=== PATIENT | female | born 1960 | race Caucasian/White ===

== ENCOUNTER 2019-12-24 11:04 | Inpatient (IN) | payer BC, SELFPAY ==
--- NOTE | ~2019-12-24 | CT_ITS ---
EXAMINATION: CT abdomen pelvis w con DATE: 12/24/2019 13:13 INDICATION: Fever, diarrhea and back pain TECHNIQUE: Computed tomography (CT) of the abdomen and pelvis was performed with 100 cc Omnipaque 350 intravenous contrast. Automated exposure control and iterative reconstruction technique were employe d. Exam dose: 1519.94 mGy-cm total exam DLP. COMPARISON: 02/25/2008 CT abdomen 04/09/2014 limited abdominal ultrasound examination FINDINGS: This changes are noted in the included lower lung zones. No pulmonary infiltrate or consoli dation or pulmonary mass lesion is identified. Heart size is normal. No pericardial or pleural effusion. There is an approximately 4.2 cm cystic lesion at the dome of the liver and approximately 7 mm hypoat tenuating lesion is also noted near the dome. There is hepatic surface nodularity consistent with cirrhosis. There is splenomegaly. The splenic vei n is dilated and tortuous. The gallbladder is present. No bile duct or pancreatic duct dilatation is evident. No pancreatic mass lesion or calcification is noted. Normal morphology of the adrenal glands. No renal mass lesion or urinary tract calculus or hydroureteronephrosis is evident. The urinary bladd er, uterus and adnexal areas are unremarkable. There is normal caliber and mild atherosclerotic calcification of the abdominal aorta. No intraperito hussein or retroperitoneal mass lesion is evident. No ascites. No evidence of appendicitis. There is thickening of the wall of the cecum, ascending, transverse and descending colon and pericoli c fat stranding surrounding much of the colon, suggesting nonspecific colitis. No bowel obstruction o r intraperitoneal free air. Small fat-containing umbilical hernia. Included skeletal structures are unremarkable. IMPRESSION: Nonspecific colitis, involving particularly the descending, transverse, ascending colon and cecum Hepatic cysts Cirrhosis, splenomegaly. Reviewed, dictated and finalized at [facility] Reviewed, dictated and finalized at [facility] IMPRESSION: Nonspecific colitis, involving particularly the descending, transv erse, ascending colon and cecum Hepatic cysts Cirrhosis, splenomegaly.
[2019-12-24 11:30] VITALS: BP 107/88; RESP 18; TEMP 37.7; O2SAT 95
--- NOTE | 2019-12-24 11:36 | ECG_ITS ---
Measurements Intervals [place] Rate: 83 P: 53 ME: 128 QRS: 42 QRSD: 96 T: 37 QT: 385 QTc: 454 Interpretive Statements SINUS RHYTHM DELAYED PRECORDIAL R/S TRANSITION BORDERLINE ST ABNORMALITY- INFERIOR LEADS BORDERLINE ECG Electronically Signed On 12-24-2019 13:02:51 CDT by Darrel Archer D.O.
[2019-12-24 11:55] LABS: Add Urine Microscopic? NO; Appearance Urine Clear (Clear); Bilirubin Urine Negative (Negative); Blood Urine Negative (Negative); Color Urine Yellow (Yellow); Glucose Urine UA Negative (Negative); Ketones Urine Negative (Negative); Leukocyte Esterase Ur Negative LEU/UL (Negative); Nitrate Urine Negative (Negative); Protein Urine Negative (Negative); Specific Grav Ur 1.015 (1.010-1.020); Urobilinogen Urine 0.2 mg/dL (0.2-1.0); pH Urine 5.5 (5.0-8.0)
[2019-12-24] MEDS: SODIUM CHLORIDE 0.9% IV 1,000 ML 999 ML IV CONT (12:00)
[2019-12-24 12:04] LABS: Glucose Point of Care 200 (65-105)
[2019-12-24 12:15] LABS: Basophils Absolute Auto 0.01 K/mm3 (0.00-0.10); Basophils Percent Auto 0.1 % (0.0-1.0); Eosinophils Absolute Auto 0.19 K/mm3 (0.02-0.50); Eosinophils Percent Auto 2.8 % (1.0-6.0); Hematocrit 40.1 % (35.0-49.0); Hemoglobin 13.8 g/dL (12.0-15.0); Immature Granulocyte Absolute 0.02 K/mm3 (0.00-0.00); Immature Granulocyte Percent A 0.3 % (0.0-0.0); Immature Platelet Fraction Pct 4.2 % (1.0-7.0); Lymphocytes Absolute Auto 0.61 K/mm3 (1.10-4.50); Lymphocytes Percent Auto 8.9 % (18.0-42.0); Mean Corpuscular HGB Conc 34.4 g/dL (32.0-36.0); Mean Corpuscular Hemoglobin 30.1 pg (27.0-31.0); Mean Corpuscular Volume 87.6 fL (78.0-102.0); Mean Platelet Volume 12.1 fl (9.2-11.8); Monocytes Absolute Auto 0.56 K/mm3 (0.10-0.90); Monocytes Percent Auto 8.1 % (2.0-11.0); Neutrophils Absolute Auto 5.5 K/mm3 (1.7-7.2); Neutrophils Percent Auto 79.8 % (50.0-70.0); Platelet Count Result 40 K/mm3 (150-420); Red Blood Count 4.58 M/mm3 (4.20-5.40); Red Cell Distribution Width 14.8 % (11.6-14.4); White Blood Count 6.9 K/mm3 (4.8-10.8)
[2019-12-24 12:21] LABS: INR 1.4; Partial Thromboplastin Time 29.7 SEC (22.3-31.6); Prothrombin Time 13.9 Seconds (9.64-11.0)
[2019-12-24 12:46] LABS: Alanine Aminotransferase 26 U/L (14-59); Albumin Level 2.6 g/dL (3.4-5.0); Alkaline Phosphatase 76 U/L (46-116); Anion Gap 12.4 mmol/L (7-16); Aspartate Amino Transferase 29 U/L (15-37); Bilirubin,Total 2.3 mg/dL (0.00-1.00); Blood Urea Nitrogen 8 mg/dL (7-18); Calcium 7.8 mg/dL (8.5-10.1); Carbon Dioxide 26 mmol/L (21-32); Chloride 100 mmol/L (98-108); Estimated CRCL calculation 80 ml/min; Estimated Glomerular Filt Rate > 60; Glucose 199 mg/dL (70-99); Lipase 107 U/L (73-393); Osmolality Calculated 284 mOsm/kg (285-295); Potassium 3.4 mmol/L (3.5-5.1); Sodium 135 mmol/L (136-145); Total Protein 5.8 g/dL (6.4-8.2)
[2019-12-24 12:47] LABS: Lactic Acid Reflex 2.5 mmol/L (0.4-2.0)
[2019-12-24 12:48] LABS: Troponin I < 0.02 ng/mL (0.00-0.056)
--- NOTE | 2019-12-24 12:57 | ED.NAVMDI ---
HPI - Nausea/Vomiting/Diarrhea General Chief complaint: Nausea/Vomiting/Diarrhea Stated complaint: Fever,diarrhea,back pain Source: patient Mode of arrival: ambulatory Limitations: no limitations History of Present Illness HPI Narrative: this is a 59-year-old female with a history of diabetes, history of portal vein thrombosis and hypertension with liver cirrhosis and history of thrombocytopenia secondary to liver cirrhosis. Patient presents with crampy abdominal pain and watery diarrhea over the last couple of days, call her primary care physician because she had a temperature of 101? yesterday and currently having crampy abdominal pain with some nausea no vomiting and watery diarrhea. Patient had a recent episode of sinusitis and was some on antibiotics which she finished that course. Currently there is no fever, others no shortness of breath no cough. MD elicited complaint: nausea, diarrhea and abdominal pain Onset (ago): day(s) Description of vomiting: watery Description of diarrhea: watery Associated nausea: Yes Associated abdominal pain: Yes Location of pain: diffuse Pain consistency: intermittent Severity: moderate Quality: cramping Relieving factors: none Associated symptoms: fever/chills and nausea/vomiting Related Data Home Medications Medication Instructions Recorded Confirmed apixaban [Eliquis] 2.5 mg PO BID 12/24/19 12/24/19 furosemide 20 mg PO DAILY 12/24/19 12/24/19 glimepiride 2 mg PO DAILY 12/24/19 12/24/19 insulin glargine U-300 conc 50 unit SUBCUT DAILY 12/24/19 12/24/19 [Toujeo Max U-300 SoloStar] liraglutide [Victoza 3-Lai] 1.8 mg SUBCUT DAILY 12/24/19 12/24/19 metformin 1,000 mg PO BID 12/24/19 12/24/19 potassium chloride 10 meq PO DAILY 12/24/19 12/24/19 triamterene-hydrochlorothiazid 1 tablet PO DAILY 12/24/19 12/24/19 Allergies Allergy/AdvReac Type Severity Reaction Status Date / Time Sulfa (Sulfonamide Allergy Mild ITCHING Verified 10/03/12 07:20 Antibiotics) sulfanilamide Allergy Unknown Verified 10/02/12 08:40 Review of Systems Review of Systems: All systems reviewed & are unremarkable except as noted in HPI and below PMFSH Past Medical History Medical History Diabetes mellitus HTN (hypertension) Portal vein thrombosis Thrombocytopenia Family History Family History Mother Family history of malignant neoplasm of breast in first degree relative Father Family history of malignant neoplasm of esophagus Social History Social History Smoking status: Never smoker Alcohol intake: never Exam Const: General: no acute distress HENMT: Head: normal to inspection Eyes: Pupils: Equal, round and reactive pupils present Neck: Neck: normal visual inspection Chest: Chest palpation & inspection: normal inspection of the chest Resp: Effort & Inspection: normal respiratory effort Cardio: Rate: regular rate Rhythm: regular rhythm GI: GI Palp: Yes Tenderness to palpation present (GI) Percussion: Yes normal to percussion : General: Yes no CVA tenderness Urinary Catheter: Urinary Catheter: patent and draining Skin: General skin exam: normal color Rashes: no rashes Neuro: General: patient oriented x3, moves all extremities, no meningeal signs and no focal motor deficits Extrem: General: normal to inspection Psych: Mental Status: mental status grossly normal Course Vital Signs Vital signs: Vital Signs Temperature 37.7 C H 12/24/19 11:30 Respiratory Rate 18 12/24/19 11:30 Blood Pressure 107/88 12/24/19 11:30 Pulse Oximetry 95 12/24/19 11:30 Temperature 37.7 C H 12/24/19 11:30 Respiratory Rate 18 12/24/19 11:30 Blood Pressure 107/88 12/24/19 11:30 Pulse Oximetry 95 12/24/19 11:30 MDM - Nausea/Vomiting/Diarrhea Lab Data Attestation: I reviewed the patient's l
[2019-12-24 14:15] VITALS: BP 149/66; PULSE 83; RESP 18; O2SAT 97
[2019-12-24 15:07] LABS: Reflex Lactic Acid Yes or No Add Lactic
[2019-12-24 15:20] VITALS: BMI 45.2
--- NOTE | 2019-12-24 15:35 | PM.IMHP ---
H&P: HPI History of Present Illness Chief complaint: Fever,diarrhea,back pain Narrative: Aleah Levine is a 59 year old female admitted today with mild lower abdominal pain, mild lower back pain, nausea, vomiting, and diarrhea, as well as fevers around 100-102 since Saturday. Aleah has a history of diabetes, history of portal vein thrombosis and hypertension with liver cirrhosis and history of thrombocytopenia secondary to liver cirrhosis. She has had crampy abdominal pain and watery diarrhea over the last couple of days. She describes herself as having at least 5 bowel movements a day. Aleah stated that her bowel movement was at times watery, at times mucousy and at other times dark and bloody in appearance. Stated that every time she got up she had to have a bowel movement. She called her primary care physician because she had a temperature of 101? yesterday and currently having crampy abdominal pain with some nausea no vomiting and watery diarrhea. Aleah's recent history includes having a colonoscopy at [facility] in October involving GoLYTELY prep, and stated that she started having frequent bowel movements after that. Then in November, she came down with a sinus infection, that she seems to get every year. She has a history of having previous and multiple sinus opening surgeries. She did start on a course of antibiotics in November for her sinus infection at PCP Dr. Romano's office, but cannot remember what the antibiotics was. She thought that it was a 10 day course. At her ED admission today, there was no fever noted, no chest pain, no shortness of breath, no cough. She stated that she has not had any COVID exposure that she is aware of. She stated that her last outing was her colonoscopy in mid- October at [facility], and that she has been home bound since then. When I examined Aleah myself today I was able to witness quite a large sample stool of hers , that she left in the hat in the bathroom. The stool was quite malodorous, appeared black and tarry, quite thick and mucousy. Her white count at admission today was 6.9, her glucose level was 200 , her lactic acid level was 2.5. Checking her LDH, EKG, multiple stool samples and cultures ordered including C diff toxin. She was admitted with colitis and possible Clostridium difficile infection. Review of Systems Review of Systems: All systems reviewed & are unremarkable except as noted in HPI and below Constitutional: Constitutional: Reports as per HPI, Reports body ache(s), Denies chills, Denies difficulty sleeping, Reports fatigue, Reports lethargy, Denies night sweats and Reports weakness Eyes: Eyes: Reports as per HPI, Denies blurry vision and Denies photophobia ENT: Reports as per HPI, Reports Normal hearing present, Denies dysphagia, Denies epistaxis, Reports nasal congestion, Reports nasal discharge and Denies tinnitus Cardiovascular: Cardiovascular: Reports as per HPI, Denies chest pain, Denies diaphoresis, Reports pedal edema, Reports leg edema, Denies lightheadedness and Denies palpitations Respiratory: Respiratory: Reports as per HPI, Denies no additional respiratory complaints, Denies chest congestion, Denies cough, Denies hemoptysis, Denies dyspnea, Denies dyspnea on exertion and Denies wheezing Gastrointestinal: Gastrointestinal: Reports as per HPI, Reports abdominal pain, Reports melena, Reports bloating, Denies hematochezia, Denies constipation, Denies heartburn, Reports diarrhea, Reports nausea, Reports vomiting and Denies hematemesis Genitourinary: Genitourinary: Reports as per HPI, Denies hematuria, Denies urinary frequency, Denies nocturia, Denies dysuria, Denies flank pain, Denies urinary incontinence, Denies urinary hesitancy and Denies urinary urgency Musculoskeletal: Musculoskeletal: Reports as per HPI, Reports back pain and Reports stiffness Integumentary/Breasts: Skin/Breast: Reports system reviewed and no additional complaints, except as docu Neurologic: Reports as per HPI, Denies A
[2019-12-24 15:41] LABS: Lactic Acid 2.2 mmol/L (0.4-2.0)
[2019-12-24 15:54] VITALS: BP 141/53; PULSE 83; RESP 20; TEMP 37; O2SAT 96
[2019-12-24] MEDS: SODIUM CHLORIDE 0.9% IV 1,000 ML 100 ML IV CONT (17:20)
[2019-12-24] MEDS: metroNIDAZOLE 500 MG/ISO 100ML 500 MG/100 ML BAG 100 MG IVPB ×2 (17:20→22:20)
[2019-12-24] MEDS: metFORMIN HCL 500 MG TABLET 1000 MG PO (17:20)
[2019-12-24 17:32] LABS: Glucose Point of Care 192 (65-105)
--- NOTE | 2019-12-24 18:52 | ADMGEN ---
This patient, Aleah Levine, was admitted to 2nd Floor Room 202-2. Patient/family oriented to hospital policies and general routines including ID bracelet, bed and alarms, visiting hours, pain management, procedures, bathroom and other care routines, personal items, smoking policy, room service/diet, and visiting hours. Valuables list has been completed. Information on how to activate the Rapid Response Team has been discussed. Patient/Family are encouraged to report perceived risks to care and to ask questions if they do not understand what they are told or what they should do.
--- NOTE | 2019-12-24 18:53 | PC.NURSE ---
stool sample collected, pt resting in bed, declines scds at this time, pt has no complaint of pain, iv fluids running,
[2019-12-24] MEDS: POTASSIUM CHLORIDE 20 MEQ TABLET 40 MEQ PO (19:04)
[2019-12-24] MEDS: VANCOMYCIN HCL 250 MG CAPSULE 500 MG PO ×2 (19:05→20:15)
[2019-12-24] MEDS: SACCHAROMYCES BOULARDII 250 MG CAPSULE PO (19:06)
[2019-12-24 19:08] LABS: Magnesium 1.5 mg/dL (1.8-2.4); Phosphorus 3.6 mg/dL (2.6-4.7)
[2019-12-24] MEDS: ACETAMINOPHEN 325 MG TABLET 650 MG PO (19:08)
--- NOTE | 2019-12-24 19:54 | PC.NURSE ---
pt takes po meds without difficulty, iv running, aox4, no trouble walking around room with iv pole, pt is in bed on phone currently
[2019-12-24 20:00] VITALS: BP 166/58; PULSE 97; RESP 18; TEMP 37.9; O2SAT 97
[2019-12-24] MEDS: MAGNESIUM SULF 4 GM/WATER100ML 4 GM/100 ML BAG IVPB (20:14)
[2019-12-24] MEDS: APIXABAN 2.5 MG TABLET PO (20:15)
[2019-12-24 21:46] LABS: Occult Blood Positive (Negative)
--- NOTE | 2019-12-24 22:35 | PC.NURSE ---
pt informed she is being placed on contact iso for c diff, given fresh ice water, fluids running
[2019-12-24 22:40] VITALS: RESP 18
[2019-12-25] VITALS: BP 154/65; PULSE 93; RESP 20; TEMP 36.8; O2SAT 98
[2019-12-25 04:00] VITALS: BP 142/63; PULSE 90; RESP 18; TEMP 36.9; O2SAT 97
[2019-12-25] MEDS: SODIUM CHLORIDE 0.9% IV 1,000 ML 100 ML IV CONT ×2 (05:39→13:18)
[2019-12-25 05:56] LABS: Basophils Absolute Auto 0.01 K/mm3 (0.00-0.10); Basophils Percent Auto 0.2 % (0.0-1.0); Eosinophils Percent Auto 4.2 % (1.0-6.0); Hematocrit 37.5 % (35.0-49.0); Hemoglobin 12.4 g/dL (12.0-15.0); Immature Granulocyte Absolute 0.02 K/mm3 (0.00-0.00); Immature Granulocyte Percent A 0.4 % (0.0-0.0); Immature Platelet Fraction Pct 5.1 % (1.0-7.0); Lymphocytes Absolute Auto 0.47 K/mm3 (1.10-4.50); Mean Corpuscular HGB Conc 33.1 g/dL (32.0-36.0); Mean Corpuscular Hemoglobin 29.2 pg (27.0-31.0); Mean Corpuscular Volume 88.2 fL (78.0-102.0); Mean Platelet Volume 12.4 fl (9.2-11.8); Monocytes Absolute Auto 0.36 K/mm3 (0.10-0.90); Monocytes Percent Auto 7.6 % (2.0-11.0); Neutrophils Absolute Auto 3.7 K/mm3 (1.7-7.2); Neutrophils Percent Auto 77.6 % (50.0-70.0); Platelet Count Result 36 K/mm3 (150-420); Red Blood Count 4.25 M/mm3 (4.20-5.40); Red Cell Distribution Width 14.7 % (11.6-14.4); White Blood Count 4.7 K/mm3 (4.8-10.8)
[2019-12-25] MEDS: metroNIDAZOLE 500 MG/ISO 100ML 500 MG/100 ML BAG 100 MG IVPB ×2 (06:03→15:06)
[2019-12-25 06:13] LABS: Lactic Acid Reflex 1.8 mmol/L (0.4-2.0)
[2019-12-25 06:20] LABS: Alanine Aminotransferase 23 U/L (14-59); Albumin Level 2.2 g/dL (3.4-5.0); Alkaline Phosphatase 69 U/L (46-116); Anion Gap 10.8 mmol/L (7-16); Aspartate Amino Transferase 29 U/L (15-37); Bilirubin,Total 1.9 mg/dL (0.00-1.00); Blood Urea Nitrogen 7 mg/dL (7-18); Calcium 7.3 mg/dL (8.5-10.1); Carbon Dioxide 27 mmol/L (21-32); Chloride 102 mmol/L (98-108); Estimated CRCL calculation 100 ml/min; Estimated Glomerular Filt Rate > 60; Glucose 158 mg/dL (70-99); Magnesium 1.8 mg/dL (1.8-2.4); Osmolality Calculated 283 mOsm/kg (285-295); Potassium 3.8 mmol/L (3.5-5.1); Sodium 136 mmol/L (136-145); Total Protein 5.2 g/dL (6.4-8.2)
--- NOTE | 2019-12-25 07:44 | PC.NURSE ---
Complaints of dry mouth, abdominal cramping associated with bowel movements, no nausea, no vomiting, fluids infusing, independent in room, contact isolation observed,
[2019-12-25 07:46] VITALS: PULSE 88; RESP 18; O2SAT 95
[2019-12-25 07:47] VITALS: BP 144/60; PULSE 88; RESP 18; TEMP 37.2; O2SAT 95
[2019-12-25] MEDS: SACCHAROMYCES BOULARDII 250 MG CAPSULE PO ×3 (08:50→17:14)
[2019-12-25] MEDS: VANCOMYCIN HCL 250 MG CAPSULE 500 MG PO ×4 (08:50→20:33)
[2019-12-25] MEDS: APIXABAN 2.5 MG TABLET PO ×2 (08:51→20:33)
[2019-12-25] MEDS: FUROSEMIDE 20 MG TABLET PO (08:51)
[2019-12-25] MEDS: metFORMIN HCL 500 MG TABLET 1000 MG PO ×2 (08:51→17:13)
[2019-12-25] MEDS: GLIMEPIRIDE 2 MG TABLET PO (08:51)
[2019-12-25] MEDS: PANTOPRAZOLE 40 MG TABLET PO (08:51)
[2019-12-25] MEDS: TRIAMTERENE 37.5 MG/HCTZ 25 MG (MAXZIDE) TABLET 1 TAB PO (08:51)
[2019-12-25] MEDS: POTASSIUM CHLORIDE 10 MEQ TABLET PO (08:51)
[2019-12-25 11:29] LABS: Glucose Point of Care 192 (65-105)
[2019-12-25 11:57] VITALS: RESP 18
--- NOTE | 2019-12-25 11:58 | PC.NURSE ---
Eating lunch, taking oral fluids well, soreness to rectum noted from frequent stools
--- NOTE | 2019-12-25 13:28 | PC.NURSE ---
Fluids restarted at this time, does feel that her urine output is improving, stools continue
--- NOTE | 2019-12-25 14:29 | PM.IMPN ---
Progress Note: A&P Assessment and Plan (1) Colitis: Code(s): K52.9 - Noninfective gastroenteritis and colitis, unspecified <Amie Paulino NP - Last Filed: 12/25/19 15:31> Status: Acute <Amie Paulino NP - Last Filed: 12/25/19 15:31> Assessment and Plan: at 100 mL an hour IVFs continuously NS to be discontinued in the morning started on probiotics and yogurts throughout the day started on oral Vanc and IV Flagyl, but will discontinue the IV Flagyl today While continuing the oral vanc. stool sample was collected And cultures sent , C diff toxin and antigen was both found to be present, rest of stool cultures pending currently on a diabetic diet monitoring blood sugars checking electrolytes replenishing hypo kalemia and monitoring electrolytes daily <Amie Paulino NP - Last Filed: 12/25/19 15:31> (2) Clostridium difficile infection: Code(s): A49.8 - Other bacterial infections of unspecified site <Amie Paulino NP - Last Filed: 12/25/19 15:31> Status: Acute <Amie Paulino NP - Last Filed: 12/25/19 15:31> Assessment and Plan: stool was quite malodorous, appeared black and tarry, quite thick and mucousy. recent history of antibiotics for sinus infection prior to that recent history of colonoscopy using colon prep GoLYTELY hypokalemic admission and having multiple greater than 3 bowel movements a day for many days stool sample was collected And cultures sent , C diff toxin and antigen was both found to be present, rest of stool cultures pending at 100 mL an hour IVFs continuously NS to be discontinued in the morning started on probiotics and yogurts throughout the day started on oral Vanc and IV Flagyl, but will discontinue the IV Flagyl today While continuing the oral vanc. <Amie Paulino NP - Last Filed: 12/25/19 15:31> (3) Thrombocytopenia: Code(s): D69.6 - Thrombocytopenia, unspecified <Amie Paulino NP - Last Filed: 12/25/19 15:31> Status: Acute <Amie Paulino NP - Last Filed: 12/25/19 15:31> Assessment and Plan: Aleah has a platelet count of 36 down from [address] scan yesterday showed cirrhosis and splenomegaly she has had a history of thrombocytopenia for many years she has a specialist at [facility] that she follows on a routine basis she has routine EGDs completed to monitor for esophageal varices due to her vein hypertension history will continue to monitor her platelet count daily will avoid Lovenox, and also avoiding other anticoagulants at this time, using Flaquito hose and SCDs instead. <Amie Paulino, TRAILER DRIVER - Last Filed: 12/25/19 15:31> Subjective Date/time seen: 12/25/19 14:29 Magalis awake and up in her recliner chair this morning. She stated that she was very fatigued, tired and did not get much sleep last night. She stated that every time she gets a drink or gets up, she has to have a bowel movement. At times she is barely making it to the commode, definitely having too much difficulty to make it as far as the bathroom. Her abdomen is still slightly puffy and distended, with persistent lower quadrant generalized pain. She continues to have frequent bowel movements, of liquid or gravy consistency. Her C diff test came back positive for the C diff toxin and the C diff antigen. Will continue her on oral Vancomycin, but will discontinue her IV Flagyl today. it was documented that she had 2 BMs yesterday evening and 3 BMs already this morning. her CT yesterday showed colitis of the descending, transverse, ascending colon and cecum; as well as cirrhosis and splenomegaly. I have ordered her daily probiotics and yogurt between our with meals. Her stool occult was positive and she is on Eliquis with this diarrhea. Will repeat a CBC in the morning, her H&H is currently stable with a hemoglobin of 12.4 and hematocrit 37.5. Her UA was negative for concerns. The rest of her stool cultures r
--- NOTE | 2019-12-25 14:49 | PHAR ---
12/24/19 - VERIFIED PT.'S HOME MEDS [facility]RISTIANO AND CODY. TLS
[2019-12-25 15:37] VITALS: BP 154/53; PULSE 98; RESP 18; TEMP 38.1; O2SAT 95
--- NOTE | 2019-12-25 15:39 | PC.NURSE ---
napping nauseated, no emesis, fluids infusing, up to void as needed, independent
[2019-12-25 16:51] LABS: Glucose Point of Care 141 (65-105)
[2019-12-25] MEDS: ONDANSETRON INJ 4 MG/2 ML VIAL IV PUSH (16:52)
--- NOTE | 2019-12-25 16:52 | PC.NURSE ---
zofran given for nausea, pain in right side getting some worse
[2019-12-25] MEDS: ACETAMINOPHEN 325 MG TABLET 650 MG PO ×2 (16:54→20:55)
--- NOTE | 2019-12-25 17:04 | PC.NURSE ---
aisha o nausea meal changed to chicken noodle soup,
--- NOTE | 2019-12-25 18:39 | PC.NURSE ---
No further complaints of emesis
[2019-12-26] VITALS: BP 156/68; PULSE 85; RESP 18; TEMP 37; O2SAT 96
[2019-12-26] MEDS: SODIUM CHLORIDE 0.9% IV 1,000 ML 100 ML IV CONT ×2 (00:04→08:29)
[2019-12-26] MEDS: ONDANSETRON INJ 4 MG/2 ML VIAL IV PUSH (00:05)
--- NOTE | 2019-12-26 00:05 | PC.NURSE ---
Up to bathroom, states pain not bad; would like Zofran as has intermitten nausea. Zofran 4mg IVP given.
--- NOTE | 2019-12-26 01:40 | PC.NURSE ---
Awake, lying in bed watching T.V.; States uncomfortable. No complaints of pain or nausea; Skin pink, respirations easy/unlabored/regular. No distress noted. Remains in isolation for contact precautions
--- NOTE | 2019-12-26 05:06 | PC.NURSE ---
Sleeping, skin pink, no signs of nausea or vomiting, emesis bag empty on bedside table. Respirations easy/unlabored. No distress noted.
[2019-12-26 05:41] LABS: Hematocrit 35.2 % (35.0-49.0); Hemoglobin 11.8 g/dL (12.0-15.0); Immature Platelet Fraction Pct 4.5 % (1.0-7.0); Mean Corpuscular HGB Conc 33.5 g/dL (32.0-36.0); Mean Corpuscular Hemoglobin 29.4 pg (27.0-31.0); Mean Corpuscular Volume 87.6 fL (78.0-102.0); Mean Platelet Volume 12.1 fl (9.2-11.8); Platelet Count Result 39 K/mm3 (150-420); Red Blood Count 4.02 M/mm3 (4.20-5.40); Red Cell Distribution Width 14.6 % (11.6-14.4)
[2019-12-26 05:51] LABS: Anion Gap 10.1 mmol/L (7-16); Blood Urea Nitrogen 7 mg/dL (7-18); Calcium 7.2 mg/dL (8.5-10.1); Carbon Dioxide 28 mmol/L (21-32); Chloride 103 mmol/L (98-108); Estimated CRCL calculation 118 ml/min; Estimated Glomerular Filt Rate > 60; Glucose 119 mg/dL (70-99); Magnesium 1.6 mg/dL (1.8-2.4); Osmolality Calculated 285 mOsm/kg (285-295); Potassium 3.1 mmol/L (3.5-5.1); Sodium 138 mmol/L (136-145)
[2019-12-26] MEDS: ACETAMINOPHEN 325 MG TABLET 650 MG PO (07:49)
[2019-12-26] MEDS: GLIMEPIRIDE 2 MG TABLET PO (07:51)
[2019-12-26] MEDS: metFORMIN HCL 500 MG TABLET 1000 MG PO (07:51)
[2019-12-26] MEDS: VANCOMYCIN HCL 250 MG CAPSULE 500 MG PO ×2 (07:55→12:14)
[2019-12-26] MEDS: SACCHAROMYCES BOULARDII 250 MG CAPSULE PO ×2 (07:55→12:14)
[2019-12-26] MEDS: APIXABAN 2.5 MG TABLET PO (07:56)
[2019-12-26] MEDS: POTASSIUM CHLORIDE 10 MEQ TABLET PO (07:56)
[2019-12-26] MEDS: TRIAMTERENE 37.5 MG/HCTZ 25 MG (MAXZIDE) TABLET 1 TAB PO (07:56)
[2019-12-26] MEDS: PANTOPRAZOLE 40 MG TABLET PO (07:57)
[2019-12-26] MEDS: FUROSEMIDE 20 MG TABLET PO (07:57)
[2019-12-26 08:00] VITALS: BP 138/78; PULSE 76; RESP 16; TEMP 37.3; O2SAT 97
[2019-12-26] MEDS: KCL 20 MEQ/SW 100 ML 100 ML 50 MEQ IVPB (09:49)
--- NOTE | 2019-12-26 10:28 | PM.DS ---
DS: Diagnosis Admitting Diagnosis Admitting Diagnosis: Noninfective gastroenteritis and colitis, unspecified Discharge Diagnosis (1) Colitis: Code(s): K52.9 - Noninfective gastroenteritis and colitis, unspecified Status: Acute Assessment and Plan: tolerating her orals with no nausea and no vomiting, eating well, eating about 50%. continuing on probiotics and yogurts throughout the day Continuing oral Vanc stool sample was collected And cultures sent , C diff toxin and antigen was both found to be present, rest of stool cultures pending, she will need to follow-up with the hospital or her PCP for those results currently on a diabetic diet with additional supplements monitoring blood sugars checking electrolytes will discharge on a low-dose potassium and low-dose magnesium daily dose (2) Clostridium difficile infection: Code(s): A49.8 - Other bacterial infections of unspecified site Status: Acute Assessment and Plan: at admission stool was quite malodorous, appeared black and tarry, quite thick and mucousy. recent history of antibiotics for sinus infection prior to that recent history of colonoscopy using colon prep GoLYTELY upon examination of her stool, her bowel movements appeared more chunky today, not tarry in appearance. stool sample was collected And cultures sent , C diff toxin and antigen was both found to be present, rest of stool cultures pending tolerating orals well, with no nausea and no vomiting, appears to be able to keep up with her hydration at this point. Continue probiotics and yogurts throughout the day continue oral Vanc (3) Thrombocytopenia: Code(s): D69.6 - Thrombocytopenia, unspecified Status: Acute Assessment and Plan: Aleah has a platelet count of 40 then 36 and [address] scan showed cirrhosis and splenomegaly she has had a history of thrombocytopenia for many years she has a specialist at [place] that she follows on a routine basis she has routine EGDs completed to monitor for esophageal varices due to her vein hypertension history will continue to monitor her platelet count daily will avoid Lovenox, and also avoiding other anticoagulants at this time, using Flaquito hose and SCDs instead. DS: Summary Time Spent with Patient Time attestation: Total time spent providing and/or coordinating discharge services:>45 minutes Exam Const: General: comfortable and no acute distress; No in distress or confusion Orientation/consciousness: patient oriented x3 and No confusion HENMT: Head: normal to inspection Eyes: General: appearance normal, both eyes and all related structures Pupils: Equal, round and reactive pupils present EOM: EOMs intact bilaterally Direct Ophthalmoscopy: No photophobia Neck: Neck: normal visual inspection and no meningeal signs Chest: Chest palpation & inspection: normal inspection of the chest Resp: Effort & Inspection: normal respiratory effort Auscultation: clear to auscultation bilaterally, no crackles, no rales, no rhonchi, no wheezes and lung sounds not diminished Cardio: Rate: regular rate, not bradycardic and not tachycardic Rhythm: regular rhythm GI: Inspection: normal to inspection, non-distended, Pannus present and obesity GI Palp: Yes abdominal tenderness Auscultation: normal bowel sounds and bowels sounds normal Rectal Exam: deferred Other: stool today did have some chunks, not tolerate in appearance at all. She continues to have some lower abdominal tenderness, especially on the right lower quadrant, and her lower back. This may persist for a few days due to the C diff infection , as well as the colitis : General: Yes no CVA tenderness Urinary Catheter: Urinary Catheter: patent and draining Back/Spine/Pelvis: Back: no CVA tenderness Skin: General skin exam: normal color and no rashes or lesions noted Rashes: no rashes Wounds: no wounds Neuro: General: patient oriented
[2019-12-26] MEDS: MAGNESIUM SULF 4 GM/WATER100ML 4 GM/100 ML BAG IVPB (11:29)
[2019-12-26 11:40] LABS: Glucose Point of Care 171 (65-105)
[2019-12-28 09:20] LABS: Glucose Point of Care 123 (65-105)
[2019-12-28 09:25] LABS: Glucose Point of Care 199 (65-105)
== END 2019-12-26 14:00 | disposition home or self-care (01) | DRG 371 ==
LOC: CHSED 14:05 → CHS2ND 14:19
PROVIDERS: Nurse Practitioner; Admitting Provider Emergency Medicine; Emergency Provider Emergency Medicine; PCP Internal Medicine; Visit Provider Emergency Medicine
DX: A04.72 Enterocolitis due to Clostridium difficile, not specified as recurrent (principal); I81 Portal vein thrombosis; E11.9 Type 2 diabetes mellitus without complications; I10 Essential (primary) hypertension; K74.60 Unspecified cirrhosis of liver; D69.59 Other secondary thrombocytopenia
CPT/HCPCS: 36415; 74177; 80048; 80053; 81003; 82272; 82948; 83605; 83690; 83735; 84100; 84484; 85025; 85027; 85055; 85610; 85730; 87045; 87046; 87177; 87209; 87269; 87272; 87324; 87427; 89055; 93005; 99285; A9270; J2405; J3475; J3480; J7030; Q9965

== ENCOUNTER 2020-06-15 12:42 | Outpatient (CLI) | payer BC, SELFPAY ==
[2020-06-17 15:21] LABS: SARS-CoV-2 RNA PCR Negative
== END 2020-06-15 12:43 | disposition home or self-care (01) ==
LOC: CHSLAB 12:46
PROVIDERS: PCP Internal Medicine; Visit Provider Internal Medicine
DX: R09.89 Other specified symptoms and signs involving the circulatory and respiratory systems (principal); R52 Pain, unspecified; Z20.828 Contact with and (suspected) exposure to other viral communicable diseases
CPT/HCPCS: 87635; C9803; U0003

== ENCOUNTER 2020-06-20 07:43 | Outpatient (CLI) | payer BC, SELFPAY ==
[2020-06-21 14:53] LABS: SARS-CoV-2 RNA PCR Negative
== END 2020-06-20 07:44 | disposition home or self-care (01) ==
LOC: CHSLAB 07:45
PROVIDERS: PCP Internal Medicine; Visit Provider Internal Medicine
DX: Z20.828 Contact with and (suspected) exposure to other viral communicable diseases (principal)
CPT/HCPCS: 87635; C9803; U0003

== ENCOUNTER 2020-07-05 13:43 | Outpatient (CLI) | payer BC, SELFPAY ==
[2020-07-05 14:26] LABS: SARS-CoV-2 Ag Positive (Negative)
== END 2020-07-05 13:44 | disposition home or self-care (01) ==
LOC: CHSLAB 13:45
PROVIDERS: PCP Internal Medicine; Visit Provider Internal Medicine
DX: U07.1 COVID-19 (principal)
CPT/HCPCS: 87426

== ENCOUNTER 2021-02-12 19:12 | Emergency (ER) | payer BC, SELFPAY ==
[2021-02-12] VITALS (13 sets, daily range): BP systolic 164–197; BP diastolic 54–77; PULSE 87–98; RESP 14–20; TEMP 36.7–37.3; O2SAT 97–100
--- NOTE | ~2021-02-12 | XR_ITS ---
EXAMINATION: XR chest 2V EXAM DATE: 02/12/2021 19:49 INDICATION: Shortness of breath, chest pain. TECHNIQUE: Frontal and lateral projections of the chest obtained and reviewed. Comparison is made to prior examination from 11/21/2015. FINDINGS: The lungs are clear. There are no pleural effusions. The cardiomediastinal silhouette is within normal limits. There is no pneumothorax suspected. The bones and soft tissues are unremarkab le. There is no significant interval change. IMPRESSION: Unremarkable chest x-ray exam. Reviewed, dictated and finalized at location G.
--- NOTE | 2021-02-12 19:23 | ECG_ITS ---
Measurements Intervals [place] Rate: 92 P: 45 GA: 150 QRS: 41 QRSD: 87 T: 13 QT: 363 QTc: 449 Interpretive Statements SINUS RHYTHM BORDERLINE ST-T WAVE ABNORMALITY- INF/LAT LEADS BORDERLINE ECG Electronically Signed On 02-13-2021 11:12:13 CDT by Darrel Archer D.O.
[2021-02-12 19:44] LABS: Basophils Percent Auto 0.7 % (0.2-1.2); Eosinophils Absolute Auto 0.3 K/mm3 (0-0.3); Hematocrit 35.1 % (37.0-47.0); Hemoglobin 11.4 g/dL (12.0-15.0); Immature Platelet Fraction Pct 4.7 % (0.9-11.2); Lymphocytes Absolute Auto 0.61 K/mm3 (0.9-3.2); Lymphocytes Percent Auto 22.4 % (18.3-44.2); Mean Corpuscular HGB Conc 32.5 g/dl (32-36); Mean Corpuscular Hemoglobin 30.4 pg (26-34); Mean Corpuscular Volume 93.6 fl (80-100); Mean Platelet Volume 12.3 fl (7.4-10.4); Monocytes Absolute Auto 0.3 K/mm3 (0.1-0.6); Monocytes Percent Auto 10.7 % (2.6-8.5); Neutrophils Absolute Auto 1.5 K/mm3 (1.3-6.7); Neutrophils Percent Auto 55.2 % (45.5-73.1); Platelet Count Result 36 k/mm3 (150-375); Red Blood Count 3.75 M/mm3 (4.2-5.4); Red Cell Distribution Width 15.2 % (11.5-14.5); White Blood Count 2.7 K/mm3 (4.5-10.0)
[2021-02-12 19:52] LABS: Anion Gap 7 mmol/L (8-16); Blood Urea Nitrogen 11 mg/dL (7-17); Calcium 8.8 mg/dL (8.4-10.2); Carbon Dioxide 27 mmol/L (22-30); Chloride 104 mmol/L (98-107); Estimated CRCL calculation 127 ml/min; Estimated Glomerular Filt Rate > 60; Glucose 117 mg/dL (65-105); Potassium 3.7 mmol/L (3.4-5.0); Sodium 138 mmol/L (137-145)
[2021-02-12 19:52] LABS: INR 1.3; Prothrombin Time 16.3 Seconds (11.1-14.7)
[2021-02-12 19:53] LABS: Ovalocytes 1+ (NORMAL); Partial Thromboplastin Time 32.4 SECONDS (22.3-36.8); Platelet Estimate Decreased (Adequate)
[2021-02-12 20:02] LABS: NT Pro B Type Natriuretic Pept 147 pg/mL (5-100)
--- NOTE | 2021-02-12 20:13 | ED.GENADULT ---
HPI - General Adult General Chief complaint: Shortness of Breath/Dyspnea Stated complaint: edema, shortness of breath Time Seen by Provider: 02/12/21 19:15 History of Present Illness HPI narrative: Patient is a 60-year-old female who presents ER with lower extremity edema and shortness of breath. Patient reports 30 pound weight gain since being seen by an oncologist 3 weeks ago. She saw her PCP 1 week ago who increased her Lasix and her swelling in her legs is gone down. She still maintains some shortness of breath when she walks around. No chest pain. Patient has Velasco with liver cirrhosis. She has chronically depressed platelet count. No history of heart failure. She is scheduled to have an echo in 2 days. Patient reports she is fatigued today so she just sat in her hot tub. Related Data Home Medications Medication Instructions Recorded Confirmed Eliquis 2.5 mg PO BID 12/24/19 12/24/19 Toujeo Max U-300 SoloStar 50 unit SUBCUT DAILY 12/24/19 12/24/19 Victoza 3-Lai 1.8 mg SUBCUT DAILY 12/24/19 12/24/19 albuterol sulfate [ProAir HFA] 2 puff INHALATION QID PRN 12/24/19 12/24/19 furosemide 20 mg PO DAILY 12/24/19 12/24/19 glimepiride 2 mg PO DAILY 12/24/19 12/24/19 metformin 1,000 mg PO BID 12/24/19 12/24/19 omeprazole 20 mg PO DAILY 12/24/19 12/24/19 potassium chloride 10 meq PO DAILY 12/24/19 12/24/19 triamterene-hydrochlorothiazid 1 tablet PO DAILY 12/24/19 12/24/19 triamterene-hydrochlorothiazid 1 cap PO DAILY 12/24/19 12/24/19 [Dyazide] Allergies Allergy/AdvReac Type Severity Reaction Status Date / Time Sulfa (Sulfonamide Allergy Mild ITCHING Verified 10/03/12 07:20 Antibiotics) sulfanilamide Allergy Unknown Other Verified 02/12/21 19:22 Review of Systems Review of Systems: All systems reviewed & are unremarkable except as noted in HPI and below Constitutional: Constitutional: Denies chills, Denies fever(s) and Denies weakness ENT: Denies nasal congestion and Denies sore throat Cardiovascular: Cardiovascular: Denies chest pain and Denies radiating jaw, neck or arm pain Comments: Lower extremity edema Respiratory: Respiratory: Denies cough, Reports dyspnea and Denies wheezing Gastrointestinal: Gastrointestinal: Denies abdominal pain, Reports bloating, Denies nausea and Denies vomiting PMFSH Past Medical History Medical History (Updated 02/12/21 @ 21:05 by Jax Mcdonnell MD) Diabetes mellitus HTN (hypertension) Lung cancer Portal vein thrombosis Thrombocytopenia Surgical History Surgical History (Updated 02/12/21 @ 20:15 by Jax Mcdonnell MD) History of endometrial ablation Family History Family History Mother Family history of malignant neoplasm of breast in first degree relative Father Family history of malignant neoplasm of esophagus Social History Social History Smoking status: Current some day smoker Tobacco type: cigarettes Second hand tobacco smoke exposure: Yes Alcohol intake: current Drinks per week: 1 Substance use: never Substance use type: does not use Gender identity (if verbalized by the patient): Female Spiritual care concerns: No Exam Narrative: Exam Narrative: GENERAL: Well-appearing, obese, and in no acute distress. HEAD: Normocephalic, atraumatic. CHEST: Clear to auscultation. No respiratory distress. HEART: Regular rate and rhythm. Normal peripheral pulses. ABDOMEN: Soft, nontender, protuberant abdomen EXTREMITIES: Normal range of motion. 2+ edema. SKIN: Warm, dry, no rash. NEURO: Alert and oriented x3. PSYCH: Normal mood and affect. Course Course Emergency Course: Patient resting comfortably without hypoxia. Bloating edema felt to be secondary to patient's liver disease/cirrhosis. Continue home Lasix. Recommend continuing with her echocardiogram in 2 days but suggest that she contact her liver specialist for further evaluation
[2021-02-12 20:35] LABS: Alanine Aminotransferase 27 U/L (4-35); Albumin Level 2.9 g/dL (3.5-5.1); Alkaline Phosphatase 87 U/L (38-126); Aspartate Amino Transferase 42 U/L (14-36); Bilirubin,Total 1.9 mg/dL (0.2-1.3)
== END 2021-02-12 21:16 | disposition home or self-care (01) ==
PROVIDERS: Emergency Provider Emergency Medicine; PCP Internal Medicine
DX: R18.8 Other ascites (principal); R60.0 Localized edema; E11.9 Type 2 diabetes mellitus without complications; Z79.84 Long term (current) use of oral hypoglycemic drugs; Z79.01 Long term (current) use of anticoagulants; I10 Essential (primary) hypertension
CPT/HCPCS: 36415; 71046; 80048; 80076; 83880; 85025; 85055; 85610; 85730; 93005; 99284

== ENCOUNTER 2021-02-14 07:31 | Outpatient (CLI) | payer BC, SELFPAY ==
--- NOTE | 2021-02-14 | ECHO_ITS ---
Patient Info Name: Aleah Levine Age: 60 years : 1960 Gender: Female Ht: 67 in Wt: 314 lbs BSA: 2.68 m2 HR: 90 bpm BP: 171 / 80 mmHg Technical Quality: Good Exam Date: 02/14/2021 8:04 AM Exam Location: [facility] Patient Status: Outpatient Admit Date: 02/14/2021 Staff Ordering Physician: Maddy Romano MD Lumber Scaler: Noe Berger RDCS, RT Attending Provider: Maddy Romano MD Referring Physician: Juan Antonio SILVER; Exam Type: CA echo doppler color flow Study Info Indications R94.31 - Abnormal electrocardiogram ECG EKG R60.0 - Localized edema Complete two-dimensional, color flow and Doppler transthoracic echocardiogram is performed. Strain analysis performed. Summary 1. Complete two-dimensional, color flow and Doppler transthoracic echocardiogram is performed. 2. Left ventricular chamber dimension is normal. 3. Left ventricular systolic function is normal, estimated at 60-65%. 4. The left ventricular diastolic function is grade I diastolic dysfunction. 5. E/e' 14 is mildly elevated. 6. Global longitudinal strain is normal at -19.4%. 7. Left atrial chamber dimension is moderately enlarged. 8. Moderate pulmonary hypertension, estimated pulmonary arterial systolic pressure is 49 mmHg. Left Ventricle E/e' 14 is mildly elevated. Global longitudinal strain is normal at -19.4%. Left ventricular chamber dimension is normal. Left ventricular systolic function is normal, estimated at 60-65%. The left ventricular diastolic function is grade I diastolic dysfunction. Right Ventricle Right ventricular systolic function is normal and with normal TAPSE 3.4 cm. Right ventricular chamber dimension is normal. Left Atria Left atrial chamber dimension is moderately enlarged. Right Atria Right atrial chamber dimension is normal. Aortic Valve The aortic valve is trileaflet. There is no aortic valve stenosis. There is no aortic valve regurgitation. Pulmonic Valve There is no pulmonic regurgitation. Mitral Valve There is no mitral valve stenosis. There is no mitral valve regurgitation. Tricuspid Valve There is no tricuspid valve regurgitation. Moderate pulmonary hypertension, estimated pulmonary arterial systolic pressure is 49 mmHg. Pericardium/Pleural There is no pericardial effusion. Inferior Vena Cava Normal inferior vena cava with >50% collapse upon inspiration consistent with normal right atrial pressure, 5 mmHg. Aorta The aortic root size at the sinus of Valsalva is normal. Left Ventricular Outflow Tract Name Value Normal LVOT 2D LVOT Diameter 2.0 cm LVOT Doppler LVOT Peak Gradient 7 mmHg LVOT Mean Gradient 5 mmHg LVOT VTI 28 cm LVOT VTI/AV VTI Ratio 0.7 LVOT Stroke Volume 92 ml LVOT CO 7.9 l/min LVOT CI 3.0 l/min/m2 Mitral Valve Name V
== END 2021-02-14 07:32 | disposition home or self-care (01) ==
PROVIDERS: PCP Internal Medicine; Visit Provider Internal Medicine
DX: M79.89 Other specified soft tissue disorders (principal); R94.31 Abnormal electrocardiogram [ECG] [EKG]
CPT/HCPCS: 93306

== ENCOUNTER 2021-02-20 13:50 | Outpatient (CLI) | payer BC, SELFPAY ==
[2021-02-20 14:05] LABS: Add Urine Microscopic? YES; Appearance Urine Clear (Clear); Bilirubin Urine Negative (Negative); Blood Urine Negative (Negative); Color Urine Light Yellow (Yellow); Glucose Urine UA Trace (Negative); Ketones Urine Negative (Negative); Leukocyte Esterase Ur Trace (Negative); Nitrate Urine Negative (Negative); Protein Urine Negative (Negative); Urobilinogen Urine 0.2 mg/dL (0.2-1.0)
[2021-02-20 14:07] LABS: Hematocrit 34.3 % (35.0-49.0); Hemoglobin 11.2 g/dL (12.0-15.0); Immature Platelet Fraction Pct 2.9 % (1.0-7.0); Mean Corpuscular HGB Conc 32.7 g/dL (32.0-36.0); Mean Corpuscular Hemoglobin 30.4 pg (27.0-31.0); Mean Platelet Volume 12.3 fl (9.2-11.8); Platelet Count Result 35 K/mm3 (150-420); Red Blood Count 3.69 M/mm3 (4.20-5.40); Red Cell Distribution Width 15.4 % (11.6-14.4); White Blood Count 2.3 K/mm3 (4.8-10.8)
[2021-02-20 14:10] LABS: Bacteria Urine Trace /hpf; RBC Urine None seen /hpf (0-2); Squamous Epithelial Cell Urine Rare /hpf (Few); WBC Urine 0-3 /hpf (0-3)
[2021-02-20 14:20] LABS: Alanine Aminotransferase 32 U/L (14-59); Albumin Level 2.7 g/dL (3.4-5.0); Alkaline Phosphatase 92 U/L (46-116); Ammonia 74 umol/L (11-32); Anion Gap 13 mmol/L (8-16); Aspartate Amino Transferase 31 U/L (15-37); Bilirubin,Total 2.2 mg/dL (0.00-1.00); Blood Urea Nitrogen 14 mg/dL (7-18); Calcium 8.5 mg/dL (8.5-10.1); Carbon Dioxide 26 mmol/L (21-32); Chloride 104 mmol/L (98-108); Estimated Glomerular Filt Rate > 60; Glucose 291 mg/dL (70-99); Osmolality Calculated 307 mOsm/kg (285-295); Potassium 3.7 mmol/L (3.5-5.1); Sodium 143 mmol/L (136-145); Total Protein 5.8 g/dL (6.4-8.2)
[2021-02-20 15:08] LABS: Band Neutrophils Percent 0 % (0-6); Eosinophils Absolute Manual 0.18 K/mm3 (0.02-0.5); Eosinophils Percent Manual 8 % (1-6); Lymphocytes Percent Manual 22 % (18-44); Monocytes Absolute Manual 0.13 K/mm3 (0.1-0.90); Monocytes Percent Manual 6 % (3-9); Neutrophils Absolute Manual 1.47 K/mm3 (1.7-7.2); Neutrophils Percent Manual 64 % (46-73); Platelet Estimate Decreased (Adequate); Total Cells Counted 100
[2021-02-24 21:38] LABS: Alpha Fetoprotein Tumor Marker 3.3 ng/mL (<6.1)
== END 2021-02-20 13:51 | disposition home or self-care (01) ==
LOC: CHSLAB 13:53
PROVIDERS: PCP Internal Medicine; Visit Provider Internal Medicine
DX: K74.69 Other cirrhosis of liver (principal); I81 Portal vein thrombosis
CPT/HCPCS: 36415; 80053; 81001; 82105; 82140; 85025; 85055

== ENCOUNTER 2021-02-22 12:08 | Outpatient (CLI) | payer BC, SELFPAY ==
[2021-02-22 13:25] LABS: Anion Gap 10 mmol/L (8-16); Blood Urea Nitrogen 10 mg/dL (7-18); Calcium 8.2 mg/dL (8.5-10.1); Carbon Dioxide 27 mmol/L (21-32); Chloride 106 mmol/L (98-108); Estimated Glomerular Filt Rate > 60; Glucose 159 mg/dL (70-99); Osmolality Calculated 298 mOsm/kg (285-295); Potassium 3.8 mmol/L (3.5-5.1); Sodium 143 mmol/L (136-145)
== END 2021-02-22 12:09 | disposition home or self-care (01) ==
LOC: CHSLAB 12:10
PROVIDERS: PCP Internal Medicine; Visit Provider Internal Medicine
DX: E87.6 Hypokalemia (principal)
CPT/HCPCS: 36415; 80048

== ENCOUNTER 2021-02-27 08:15 | Outpatient (CLI) | payer BC, SELFPAY ==
[2021-02-27 09:04] LABS: Anion Gap 6 mmol/L (8-16); Blood Urea Nitrogen 12 mg/dL (7-18); Calcium 8.5 mg/dL (8.5-10.1); Carbon Dioxide 31 mmol/L (21-32); Chloride 106 mmol/L (98-108); Estimated Glomerular Filt Rate > 60; Glucose 162 mg/dL (70-99); Osmolality Calculated 299 mOsm/kg (285-295); Potassium 3.8 mmol/L (3.5-5.1); Sodium 143 mmol/L (136-145)
== END 2021-02-27 08:16 | disposition home or self-care (01) ==
LOC: CHSLAB 08:17
PROVIDERS: PCP Internal Medicine; Visit Provider Internal Medicine
DX: R79.89 Other specified abnormal findings of blood chemistry (principal)
CPT/HCPCS: 36415; 80048

== ENCOUNTER 2021-03-06 08:07 | Outpatient (CLI) | payer BC, SELFPAY ==
[2021-03-06 09:26] LABS: Alanine Aminotransferase 33 U/L (14-59); Albumin Level 3.1 g/dL (3.4-5.0); Alkaline Phosphatase 88 U/L (46-116); Anion Gap 10 mmol/L (8-16); Aspartate Amino Transferase 37 U/L (15-37); Bilirubin,Total 2.7 mg/dL (0.00-1.00); Blood Urea Nitrogen 14 mg/dL (7-18); Calcium 8.6 mg/dL (8.5-10.1); Carbon Dioxide 28 mmol/L (21-32); Chloride 104 mmol/L (98-108); Estimated Glomerular Filt Rate > 60; Glucose 111 mg/dL (70-99); Osmolality Calculated 295 mOsm/kg (285-295); Sodium 142 mmol/L (136-145); Total Protein 6.3 g/dL (6.4-8.2)
== END 2021-03-06 08:08 | disposition home or self-care (01) ==
LOC: CHSLAB 08:09
PROVIDERS: PCP Internal Medicine; Visit Provider Internal Medicine
DX: K74.69 Other cirrhosis of liver (principal)
CPT/HCPCS: 36415; 80053

== ENCOUNTER 2021-03-20 07:54 | Outpatient (CLI) | payer BC, SELFPAY ==
[2021-03-20 08:14] LABS: Hematocrit 39.3 % (35.0-49.0); Hemoglobin 13.3 g/dL (12.0-15.0); Immature Platelet Fraction Pct 5.9 % (1.0-7.0); Mean Corpuscular HGB Conc 33.8 g/dL (32.0-36.0); Mean Corpuscular Hemoglobin 30.9 pg (27.0-31.0); Mean Corpuscular Volume 91.4 fL (78.0-102.0); Platelet Count Result 32 K/mm3 (150-420); Red Cell Distribution Width 15.1 % (11.6-14.4); White Blood Count 3.1 K/mm3 (4.8-10.8)
[2021-03-20 09:10] LABS: Band Neutrophils Percent 0 % (0-6); Basophils Absolute Manual 0.03 K/mm3 (0-0.1); Basophils Percent Manual 1 % (0-1); Eosinophils Absolute Manual 0.15 K/mm3 (0.02-0.5); Eosinophils Percent Manual 5 % (1-6); Lymphocytes Absolute Manual 0.62 K/mm3 (1.1-4.5); Lymphocytes Percent Manual 20 % (18-44); Monocytes Absolute Manual 0.09 K/mm3 (0.1-0.90); Monocytes Percent Manual 3 % (3-9); Neutrophils Absolute Manual 2.17 K/mm3 (1.7-7.2); Neutrophils Percent Manual 70 % (46-73); Platelet Estimate Decreased (Adequate); Total Cells Counted 100
[2021-03-20 11:02] LABS: Alanine Aminotransferase 34 U/L (14-59); Alkaline Phosphatase 96 U/L (46-116); Anion Gap 9 mmol/L (8-16); Aspartate Amino Transferase 30 U/L (15-37); Bilirubin,Total 2.1 mg/dL (0.00-1.00); Blood Urea Nitrogen 12 mg/dL (7-18); Calcium 8.4 mg/dL (8.5-10.1); Carbon Dioxide 28 mmol/L (21-32); Chloride 103 mmol/L (98-108); Estimated Glomerular Filt Rate > 60; Glucose 227 mg/dL (70-99); Osmolality Calculated 296 mOsm/kg (285-295); Potassium 4.1 mmol/L (3.5-5.1); Sodium 140 mmol/L (136-145)
== END 2021-03-20 07:55 | disposition home or self-care (01) ==
LOC: CHSLAB 07:56
PROVIDERS: PCP Internal Medicine; Visit Provider Internal Medicine
DX: D64.0 Hereditary sideroblastic anemia (principal); R79.89 Other specified abnormal findings of blood chemistry
CPT/HCPCS: 36415; 80053; 85025; 85055

== ENCOUNTER 2021-03-27 07:50 | Outpatient (CLI) | payer BC, SELFPAY ==
[2021-03-27 09:51] LABS: Alanine Aminotransferase 36 U/L (14-59); Albumin Level 2.9 g/dL (3.4-5.0); Alkaline Phosphatase 90 U/L (46-116); Anion Gap 11 mmol/L (8-16); Aspartate Amino Transferase 22 U/L (15-37); Bilirubin,Total 1.8 mg/dL (0.00-1.00); Blood Urea Nitrogen 13 mg/dL (7-18); Calcium 8.4 mg/dL (8.5-10.1); Carbon Dioxide 28 mmol/L (21-32); Chloride 104 mmol/L (98-108); Estimated Glomerular Filt Rate > 60; Glucose 146 mg/dL (70-99); Osmolality Calculated 299 mOsm/kg (285-295); Potassium 3.7 mmol/L (3.5-5.1); Sodium 143 mmol/L (136-145)
== END 2021-03-27 07:51 | disposition home or self-care (01) ==
LOC: CHSLAB 07:52
PROVIDERS: PCP Internal Medicine; Visit Provider Internal Medicine
DX: K74.69 Other cirrhosis of liver (principal)
CPT/HCPCS: 36415; 80053

== ENCOUNTER 2021-04-21 07:36 | Outpatient (CLI) | payer BC, SELFPAY ==
[2021-04-21 07:51] LABS: Hematocrit 39.2 % (35.0-49.0); Hemoglobin 13.3 g/dL (12.0-15.0); Immature Platelet Fraction Pct 4.3 % (1.0-7.0); Mean Corpuscular HGB Conc 33.9 g/dL (32.0-36.0); Mean Corpuscular Hemoglobin 29.9 pg (27.0-31.0); Mean Corpuscular Volume 88.1 fL (78.0-102.0); Mean Platelet Volume 12.7 fl (9.2-11.8); Platelet Count Result 33 K/mm3 (150-420); Red Blood Count 4.45 M/mm3 (4.20-5.40); Red Cell Distribution Width 14.3 % (11.6-14.4); White Blood Count 2.9 K/mm3 (4.8-10.8)
[2021-04-21 08:33] LABS: Alanine Aminotransferase 35 U/L (14-59); Albumin Level 2.8 g/dL (3.4-5.0); Alkaline Phosphatase 105 U/L (46-116); Anion Gap 4 mmol/L (8-16); Aspartate Amino Transferase 22 U/L (15-37); Bilirubin,Total 1.9 mg/dL (0.00-1.00); Blood Urea Nitrogen 11 mg/dL (7-18); Calcium 8.4 mg/dL (8.5-10.1); Carbon Dioxide 31 mmol/L (21-32); Chloride 100 mmol/L (98-108); Estimated Glomerular Filt Rate > 60; NT Pro B Type Natriuretic Pept 70 pg/mL (0-125); Osmolality Calculated 296 mOsm/kg (285-295); Potassium 4.3 mmol/L (3.5-5.1); Sodium 135 mmol/L (136-145); Total Protein 5.7 g/dL (6.4-8.2)
[2021-04-21 08:36] LABS: Band Neutrophils Percent 0 % (0-6); Eosinophils Absolute Manual 0.37 K/mm3 (0.02-0.5); Eosinophils Percent Manual 13 % (1-6); Lymphocytes Absolute Manual 0.55 K/mm3 (1.1-4.5); Lymphocytes Percent Manual 19 % (18-44); Monocytes Absolute Manual 0.11 K/mm3 (0.1-0.90); Monocytes Percent Manual 4 % (3-9); Neutrophils Absolute Manual 1.85 K/mm3 (1.7-7.2); Neutrophils Percent Manual 64 % (46-73); Total Cells Counted 100
[2021-04-21 08:37] LABS: Platelet Estimate Decreased (Adequate)
[2021-04-21 08:45] LABS: Glucose 401 mg/dL (70-99)
== END 2021-04-21 07:37 | disposition home or self-care (01) ==
LOC: CHSLAB 07:40
PROVIDERS: PCP Internal Medicine; Visit Provider Internal Medicine
DX: K74.69 Other cirrhosis of liver (principal); D69.6 Thrombocytopenia, unspecified; I10 Essential (primary) hypertension
CPT/HCPCS: 36415; 80053; 83880; 85025; 85055

== ENCOUNTER → 2021-07-10 10:21 | Outpatient (CLI) | payer BC, SELFPAY ==
--- NOTE | ~2021-07-10 | MR_ITS ---
EXAMINATION: MR MRCP wo/w con/w 3D wo ind DATE: 07/10/2021 11:43 INDICATION: Portal vein thrombosis. Liver mass. TECHNIQUE: Magnetic resonance imaging (MRI) of the abdomen was performed without and with 20 mL Multi Vishal intravenous contrast. Sequences included coronal T2-weighted FS FSE, coronal T2-weighted FSE, a xial T1-weighted LAVA, coronal FS FIESTA, axial dual-echo T1-weighted SPGR, coronal lava-FLEX, sagitt al T2-weighted FSE, axial T2-weighted FSE, and axial DWI. Thick-slab T2-weighted FSE images were obta ined for magnetic resonance cholangiopancreatography (MRCP). Maximum intensity projection 3-D reconst ructions of the volumetric data were created by the technologist. Postcontrast sequences included cor onal LAVA-flex and time course of axial T1-weighted LAVA. COMPARISON: CT abdomen and pelvis 12/24/2019 FINDINGS: ABDOMEN MRI: Left hepatic lobe is small. The liver demonstrates diffuse steatosis and surface nodular ity, consistent with cirrhosis. There are 4.8 cm and 3 mm cysts in the liver (LI-RADS LR-1). There is no evidence of liver malignancy. The portal veins are patent. There is moderate splenomegaly measuri ng 16.4 cm. There is dependent sludge in the gallbladder, which is normal in size. The pancreas, adre nal glands, and kidneys are normal. There are no dilated loops of bowel. There are no pathologically enlarged lymph nodes. There is no free intraperitoneal fluid. There is a splenorenal shunt. ABDOMEN MRCP: The common duct is normal and measures 3 mm. No choledocholithiasis. IMPRESSION: 1. Cirrhosis of the liver with portal venous hypertension. Reviewed, dictated and finalized at location A. 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
[2021-07-10 10:55] LABS: Estimated Glomerular Filt Rate > 60
== END ==
PROVIDERS: PCP Internal Medicine; Visit Provider Internal Medicine Gastroenterology
DX: I81 Portal vein thrombosis (principal); K74.69 Other cirrhosis of liver
CPT/HCPCS: 74183; 76376; A9577

== ENCOUNTER 2021-08-10 18:38 | Inpatient (IN) | payer BC, SELFPAY ==
[2021-08-10] VITALS (9 sets, daily range): BP systolic 127–139; BP diastolic 57–74; PULSE 75–97; RESP 16–18; TEMP 36.7; O2SAT 96–100
[2021-08-10 19:00] LABS: Glucose Point of Care 270 mg/dl (65-105)
[2021-08-10 19:42] LABS: Basophils Percent Auto 0.6 % (0.2-1.2); Eosinophils Absolute Auto 0.5 K/mm3 (0-0.3); Eosinophils Percent Auto 10.4 % (0-4.4); Hematocrit 40.7 % (37.0-47.0); Hemoglobin 14.3 g/dL (12.0-15.0); Immature Granulocyte Absolute 0.02 K/mm3 (0.00-0.031); Immature Granulocyte Percent A 0.4 % (0-0.5); Immature Platelet Fraction Pct 6.6 % (0.9-11.2); Lymphocytes Absolute Auto 1.27 K/mm3 (0.9-3.2); Mean Corpuscular HGB Conc 35.1 g/dl (32-36); Mean Corpuscular Volume 91.1 fl (80-100); Mean Platelet Volume 11.9 fl (7.4-10.4); Monocytes Absolute Auto 0.6 K/mm3 (0.1-0.6); Monocytes Percent Auto 12.1 % (2.6-8.5); Neutrophils Absolute Auto 2.3 K/mm3 (1.3-6.7); Neutrophils Percent Auto 49.5 % (45.5-73.1); Platelet Count Result 49 k/mm3 (150-375); Red Blood Count 4.47 M/mm3 (4.2-5.4); Red Cell Distribution Width 14.8 % (11.5-14.5); White Blood Count 4.7 K/mm3 (4.5-10.0)
[2021-08-10 19:45] LABS: Ammonia 167 umol/L (9-30)
[2021-08-10 19:50] LABS: Albumin Level 3.2 g/dL (3.5-5.1); Alkaline Phosphatase 92 U/L (38-126); Anion Gap 11 mmol/L (8-16); Aspartate Amino Transferase 38 U/L (14-36); Bilirubin,Total 4.6 mg/dL (0.2-1.3); Blood Urea Nitrogen 13 mg/dL (7-17); Calcium 8.2 mg/dL (8.4-10.2); Carbon Dioxide 32 mmol/L (22-30); Chloride 88 mmol/L (98-107); Estimated CRCL calculation 100 ml/min; Estimated Glomerular Filt Rate > 60; Glucose 261 mg/dL (65-110); Potassium 2.3 mmol/L (3.4-5.0); Sodium 131 mmol/L (137-145)
[2021-08-10 19:53] LABS: Alanine Aminotransferase 33 U/L (4-35)
[2021-08-10 19:55] LABS: INR 1.5; Prothrombin Time 17.6 Seconds (11.1-14.7)
[2021-08-10 19:56] LABS: Partial Thromboplastin Time 31.5 SECONDS (22.3-36.8)
[2021-08-10] MEDS: POTASSIUM CHLORIDE INJ 40 MEQ in SODIUM CHLORIDE 0.9% IV 500 ML 130 MEQ IVPB (20:27)
[2021-08-10 21:05] LABS: Add Urine Microscopic? YES; Appearance Urine Clear (Clear); Bilirubin Urine Negative (Negative); Blood Urine Negative (Negative); Color Urine Yellow (Yellow); Glucose Urine UA 3+ mg/dL (Negative); Ketones Urine Negative (Negative); Leukocyte Esterase Ur Negative LEU/UL (Negative); Nitrate Urine Negative (Negative); Protein Urine Negative (Negative); RBC Urine 0-2 /hpf (0-2); Specific Grav Ur 1.005 (1.001-1.035); WBC Urine 0-3 /hpf
--- NOTE | 2021-08-10 21:33 | ED.GENADULT ---
HPI - General Adult General Chief complaint: Altered Mental Status Stated complaint: confusion Time Seen by Provider: 08/10/21 19:06 History of Present Illness HPI narrative: Patient is a 60-year-old female who presents ER with altered mental status. reports that he noticed that she was confused today and cannot answer questions appropriately. She reports last night patient began to have weakness while she was at the garden below [place]. Patient has history of liver disease and sees a liver physician at [facility]. Patient has been compliant with home medication. He denies that she has a history of hepatic encephalopathy. He does not think she has been demonstrating any other adverse symptoms including runny nose/sore throat/cough. He has noted no fevers or urinary issues. Related Data Home Medications Medication Instructions Recorded Confirmed Eliquis 2.5 mg PO BID 12/24/19 08/11/21 Victoza 3-Lai 1.8 mg SUBCUT DAILY 12/24/19 08/11/21 metformin 1,000 mg PO BID 12/24/19 08/11/21 duloxetine 30 mg PO DAILY 08/11/21 08/11/21 pantoprazole 40 mg PO DAILY 08/11/21 08/11/21 torsemide 20 mg PO QID 08/11/21 08/11/21 Allergies Allergy/AdvReac Type Severity Reaction Status Date / Time Sulfa (Sulfonamide Allergy Mild ITCHING Verified 10/03/12 07:20 Antibiotics) sulfanilamide Allergy Unknown Other Verified 02/12/21 19:22 Review of Systems Review of Systems: ROS unobtainable: Yes unobtainable due to medical condition [facility] Past Medical History Medical History (Updated 08/11/21 @ 07:05 by Yumiko Doyle DO) C. difficile colitis (~12/2019) Cirrhosis Diabetes mellitus HTN (hypertension) Lung cancer Portal vein thrombosis Thrombocytopenia Surgical History Surgical History History of endometrial ablation Family History Family History Mother Family history of malignant neoplasm of breast in first degree relative Father Family history of malignant neoplasm of esophagus Social History Social History Smoking status: Current some day smoker Tobacco type: cigarettes Second hand tobacco smoke exposure: Yes Alcohol intake: current Drinks per week: 1 Substance use: never Substance use type: does not use Gender identity (if verbalized by the patient): Female Spiritual care concerns: No Exam Narrative: GENERAL: ill-appearing, morbidly obese, and in no acute distress. HEAD: Normocephalic, atraumatic. Eyes: PERRL, EOMI, sclera icterus noted. ENT: Mucous membranes moist. CHEST: Clear to auscultation. No respiratory distress. HEART: Regular rate and rhythm. Normal peripheral pulses. ABDOMEN: Soft, nontender, nondistended. EXTREMITIES: Normal range of motion. 1+ edema. SKIN: Warm, dry, no rash. NEURO: Patient is awake and alert but not oriented.. Course Course Emergency Course: Admit to hospitalist service. Oral and IV potassium ordered. Lactulose scheduled for encephalopathy. Vital Signs Vital signs: Vital Signs Temperature 98.0 F 08/10/21 18:53 Pulse Rate 97 08/10/21 18:53 Respiratory Rate 18 08/10/21 18:53 Blood Pressure 136/57 L 08/10/21 18:53 Pulse Oximetry 97 08/10/21 18:53 Temperature 98.2 F 08/11/21 00:45 Pulse Rate 87 08/11/21 04:00 Respiratory Rate 20 08/11/21 00:45 Blood Pressure 122/55 L 08/11/21 00:45 Pulse Oximetry 99 08/11/21 00:45 Medical Decision Making Vital Signs Vital Signs: Vital Signs Temperature 98.0 F 08/10/21 18:53 Pulse Rate 97 08/10/21 18:53 Respiratory Rate 18 08/10/21 18:53 Blood Pressure 136/57 L 08/10/21 18:53 Pulse Oximetry 97 08/10/21 18:53 Temperature 98.2 F 08/11/21 00:45 Pulse Rate 87 08/11/21 04:00 Respiratory Rate 20 08/11/21 00:45 Blood Pressure 122/55 L 08/11/21 00:45 Pulse Oximetry 99
[2021-08-10] MEDS: LACTULOSE 20 GM/30 ML UDC PO (22:29)
[2021-08-10 22:36] LABS: Magnesium 1.4 mg/dL (1.6-2.3)
--- NOTE | 2021-08-10 23:49 | PC.NURSE ---
answers all questions with Im all right
[2021-08-11] VITALS (8 sets, daily range): BP systolic 122–147; BP diastolic 47–62; PULSE 75–92; RESP 16–20; TEMP 36.2–36.9; O2SAT 94–99; BMI 34.4
--- NOTE | 2021-08-11 00:17 | PC.NURSE ---
went to give po kcl family reports she had been given that med earlier
--- NOTE | 2021-08-11 01:41 | ADMGEN ---
This patient, Aleah Levine, was admitted to 2 Medical Room 258-01. Patient/family oriented to hospital policies and general routines including ID bracelet, bed and alarms, visiting hours, pain management, procedures, bathroom and other care routines, personal items, smoking policy, room service/diet, and visiting hours. Information on how to activate the Rapid Response Team has been discussed. Patient/Family are encouraged to report perceived risks to care and to ask questions if they do not understand what they are told or what they should do.
--- NOTE | 2021-08-11 02:16 | PC.NURSE ---
Pt is unable to answer questions. does not know medication. Medication is entered according to external history, but noted several different dates of prescriptions refills.
--- NOTE | 2021-08-11 03:22 | PM.IMHP ---
H&P: HPI History of Present Illness Date/Time: 08/11/21 03:22 Chief Complaint: confusion Narrative: 60-year-old female with a past medical history of diabetes, hypertension, portal vein thrombosis, chronic thrombocytopenia and cirrhosis who presented to the ER with family due to increased confusion. Source of information is limited as the patient was only oriented to person and the patient's family could not provide much additional history. Remainder of information was obtained from prior H&P. The family reported the patient was more confused today and could not answer questions appropriately. Last night she seemed of developing increasing weakness while they were at the [place] at the [place]. Patient does see a valver at [place]. The patient reportedly has been compliant with her old meds but there is no lactulose on her home med rec. The family was not able to give a clear reported the patient's home medications in thusly home med rec was completed using external med history. Family denies the patient having a history of hepatic encephalopathy in the past she did have a ammonia level of 74 when she was admitted to the hospital December 2019 with C diff colitis. Patient has not had any diarrhea and in fact has not had a bowel movement since she arrived to the hospital. Family denied patient having any urinary symptoms or fever. Review of Systems Review of Systems: Unattainable due to hepatic encephalopathy [facility] Past Medical History Medical History (Updated 08/11/21 @ 07:05 by Yumiko Doyle DO) C. difficile colitis (~12/2019) Cirrhosis Diabetes mellitus HTN (hypertension) Lung cancer Portal vein thrombosis Thrombocytopenia Surgical History Surgical History History of endometrial ablation Family History Family History Mother Family history of malignant neoplasm of breast in first degree relative Father Family history of malignant neoplasm of esophagus Social History Social History Smoking status: Current some day smoker Tobacco type: cigarettes Second hand tobacco smoke exposure: Yes Alcohol intake: current Drinks per week: 1 Substance use: never Substance use type: does not use Gender identity (if verbalized by the patient): Female Spiritual care concerns: No Meds Home Medications and Allergies Home Medications Medication Instructions Recorded Confirmed Type Eliquis 2.5 mg PO BID 12/24/19 08/11/21 History Victoza 3-Lai 1.8 mg SUBCUT DAILY 12/24/19 08/11/21 History metformin 1,000 mg PO BID 12/24/19 08/11/21 History magnesium oxide 400 mg PO DAILY 30 Days #30 tablet 12/26/19 08/11/21 Rx duloxetine 30 mg PO DAILY 08/11/21 08/11/21 History pantoprazole 40 mg PO DAILY 08/11/21 08/11/21 History torsemide 20 mg PO QID 08/11/21 08/11/21 History Allergies Allergy/AdvReac Type Severity Reaction Status Date / Time Sulfa (Sulfonamide Allergy Mild ITCHING Verified 10/03/12 07:20 Antibiotics) sulfanilamide Allergy Unknown Other Verified 02/12/21 19:22 Vital Signs Vital Signs - 24 hr 08/10/21 18:53 08/10/21 19:11 08/10/21 19:15 Temperature 98.0 F Pulse Rate 97 81 79 Respiratory Rate 18 18 16 Blood Pressure 136/57 L 139/67 Pulse Oximetry 97 98 96 08/10/21 20:00 08/10/21 20:15 08/10/21 20:30 Temperature Pulse Rate 77 75 77 Respiratory Rate 17 16 17 Blood Pressure 130/74 Pulse Oximetry 99 100 99 08/10/21 20:31 08/10/21 22:32 08/10/21 23:45 Temperature Pulse Rate 75 81 80 Respiratory Rate 17 18 16 Blood Pressure 130/74 127/61 135/61 Pulse Oximetry 100 98 98 08/11/21 00:45 08/11/21 01:10 Temperature 98.2 F Pulse Rate 75 77 Respiratory Rate 20 Blood Pressure 122/55 L Pulse Oximetry 99 Exam Narrative: PHYSICAL EXAM: WEIGHT 109.1 kg BMI 34.5 General: Obese,
[2021-08-11] MEDS: MAGNESIUM SULF 4 GM/WATER100ML 4 GM/100 ML BAG IVPB (04:01)
[2021-08-11] MEDS: LACTULOSE 20 GM/30 ML UDC PO ×5 (04:22→21:24)
[2021-08-11 05:18] LABS: Hematocrit 39.5 % (37.0-47.0); Hemoglobin 13.8 g/dL (12.0-15.0); Immature Platelet Fraction Pct 6.1 % (0.9-11.2); Mean Corpuscular HGB Conc 34.9 g/dl (32-36); Mean Corpuscular Volume 91.6 fl (80-100); Mean Platelet Volume 12.2 fl (7.4-10.4); Platelet Count Result 51 k/mm3 (150-375); Red Blood Count 4.31 M/mm3 (4.2-5.4); Red Cell Distribution Width 14.8 % (11.5-14.5); White Blood Count 4.8 K/mm3 (4.5-10.0)
[2021-08-11 05:23] LABS: Ammonia 145 umol/L (9-30)
[2021-08-11 05:29] LABS: Alanine Aminotransferase 25 U/L (4-35); Albumin Level 3.2 g/dL (3.5-5.1); Alkaline Phosphatase 84 U/L (38-126); Anion Gap 11 mmol/L (8-16); Aspartate Amino Transferase 33 U/L (14-36); Bilirubin,Total 4.9 mg/dL (0.2-1.3); Blood Urea Nitrogen 14 mg/dL (7-17); Calcium 8.1 mg/dL (8.4-10.2); Carbon Dioxide 29 mmol/L (22-30); Chloride 92 mmol/L (98-107); Estimated CRCL calculation 87 ml/min; Estimated Glomerular Filt Rate > 60; Glucose 251 mg/dL (65-110); Potassium 2.7 mmol/L (3.4-5.0); Sodium 132 mmol/L (137-145)
[2021-08-11] MEDS: POTASSIUM CHLORIDE INJ 40 MEQ in SODIUM CHLORIDE 0.9% IV 500 ML 100 MEQ IVPB (06:06)
[2021-08-11] MEDS: POTASSIUM CHLORIDE 20 MEQ PACKET (FOR LIQUID) 40 MEQ PO ×2 (06:24→16:59)
[2021-08-11 07:51] LABS: Glucose Point of Care 270 mg/dl (65-105)
[2021-08-11] MEDS: APIXABAN 2.5 MG TABLET PO ×2 (08:49→21:24)
[2021-08-11] MEDS: DULoxetine HCL 30 MG CAPSULE.DR PO (08:49)
[2021-08-11] MEDS: MAGNESIUM OXIDE 400 MG TABLET PO (08:50)
[2021-08-11] MEDS: PANTOPRAZOLE 40 MG TABLET PO (08:50)
[2021-08-11] MEDS: INSULIN ASPART (*BKC) 100 UNITS/ML SUB-Q ×3 (08:50→17:01)
[2021-08-11 10:42] LABS: Alanine Aminotransferase 26 U/L (4-35); Albumin Level 3.1 g/dL (3.5-5.1); Alkaline Phosphatase 78 U/L (38-126); Anion Gap 10 mmol/L (8-16); Aspartate Amino Transferase 33 U/L (14-36); Bilirubin,Total 4.5 mg/dL (0.2-1.3); Blood Urea Nitrogen 12 mg/dL (7-17); Calcium 8.3 mg/dL (8.4-10.2); Carbon Dioxide 28 mmol/L (22-30); Chloride 94 mmol/L (98-107); Estimated CRCL calculation 99 ml/min; Estimated Glomerular Filt Rate > 60; Glucose 334 mg/dL (65-110); Potassium 3.2 mmol/L (3.4-5.0); Sodium 132 mmol/L (137-145)
[2021-08-11 11:42] LABS: Glucose Point of Care 295 mg/dl (65-105)
[2021-08-11] MEDS: INSULIN GLARGINE (*BKC) 100 UNITS/ML 10 UNITS SUB-Q (12:02)
[2021-08-11 14:11] LABS: Potassium 2.7 mmol/L (3.4-5.0)
[2021-08-11] MEDS: POTASSIUM CHLORIDE INJ 40 MEQ in SODIUM CHLORIDE 0.9% IV 500 ML 130 MEQ IVPB (14:52)
[2021-08-11 16:29] LABS: Glucose Point of Care 295 mg/dl (65-105)
[2021-08-11] MEDS: TORSEMIDE 20 MG TABLET 40 MG PO (16:58)
[2021-08-11] MEDS: metFORMIN HCL 500 MG TABLET 1000 MG PO (16:58)
[2021-08-11] MEDS: KCL 20 MEQ/SW 100 ML 100 ML 50 MEQ IVPB (18:48)
[2021-08-11 21:34] LABS: Glucose Point of Care 319 mg/dl (65-105)
[2021-08-12] VITALS (10 sets, daily range): BP systolic 138–153; BP diastolic 47–59; PULSE 86–103; RESP 18–20; TEMP 36.2–36.7; O2SAT 93–99
[2021-08-12] MEDS: LACTULOSE 20 GM/30 ML UDC PO ×3 (01:45→16:39)
[2021-08-12 06:32] LABS: Anion Gap 9 mmol/L (8-16); Blood Urea Nitrogen 10 mg/dL (7-17); Calcium 7.3 mg/dL (8.4-10.2); Carbon Dioxide 26 mmol/L (22-30); Chloride 94 mmol/L (98-107); Estimated CRCL calculation 113 ml/min; Estimated Glomerular Filt Rate > 60; Glucose 288 mg/dL (65-110); Potassium 3.1 mmol/L (3.4-5.0); Sodium 129 mmol/L (137-145)
[2021-08-12 07:54] LABS: Glucose Point of Care 256 mg/dl (65-105)
[2021-08-12] MEDS: INSULIN ASPART (*BKC) 100 UNITS/ML SUB-Q ×3 (08:18→16:36)
[2021-08-12] MEDS: DULoxetine HCL 30 MG CAPSULE.DR PO (08:19)
[2021-08-12] MEDS: TORSEMIDE 20 MG TABLET 40 MG PO ×2 (08:19→16:38)
[2021-08-12] MEDS: APIXABAN 2.5 MG TABLET PO ×2 (08:19→21:06)
[2021-08-12] MEDS: MAGNESIUM OXIDE 400 MG TABLET PO (08:19)
[2021-08-12] MEDS: metFORMIN HCL 500 MG TABLET 1000 MG PO ×2 (08:19→16:38)
[2021-08-12] MEDS: POTASSIUM CHLORIDE 20 MEQ PACKET (FOR LIQUID) 40 MEQ PO ×3 (08:20→16:39)
[2021-08-12] MEDS: PANTOPRAZOLE 40 MG TABLET PO (08:20)
[2021-08-12] MEDS: INSULIN GLARGINE (*BKC) 100 UNITS/ML 10 UNITS SUB-Q (08:20)
--- NOTE | 2021-08-12 09:55 | WPDGICN ---
Assessment and Plan Assessment and plan (1) Cirrhosis: Code(s): K74.60 - Unspecified cirrhosis of liver Status: Inactive Assessment and Plan: patient with known underlying cirrhosis of liver. Currently followed at [facility] by Dr Ulrich. plan is for continued supportive care. Follow up with [facility] as scheduled as an outpatient. Current problem appears to be hepatic encephalopathy. In the past she has had complications with concomitant portal vein thrombus that is now chronic and now has acute hepatic encephalopathy. She will need long-term follow-up after discharge with her established vice president of talent acquisition (2) Acute hepatic encephalopathy: Code(s): K72.00 - Acute and subacute hepatic failure without coma Status: Acute Assessment and Plan: Patient with acute hepatic encephalopathy manifested by confusion. Plan to start Xifaxan and lactulose titrate lactulose to loose stools. (3) Portal vein thrombosis: Code(s): I81 - Portal vein thrombosis Status: Acute Assessment and Plan: Patient has a history of a chronic portal vein thrombus for which she is on Eliquis anticoagulation this will be continues long she has no significant bleeding. (4) Type 2 diabetes mellitus with hyperglycemia: Qualifiers: Diabetes mellitus alf insulin use: without alf use Qualified Code(s): E11.65 - Type 2 diabetes mellitus with hyperglycemia Code(s): E11.65 - Type 2 diabetes mellitus with hyperglycemia Status: Acute GI Consult Note Consult date/time: 08/12/21 09:55 HPI: Aleah Levine is a 60 year old female I am asked to see because of elevated bilirubin. Patient known to have cirrhosis of liver. Followed by Dr. Ulrich at [facility]. She became very confused yesterday and presented [facility] where she was admitted with patent encephalopathy. Her ammonia level was quite high. She states that her ammonia has been elevated previously but never confuse like this before. She has undergone evaluations including MRCP to exclude biliary obstruction because of elevated bilirubin this was unremarkable history. She has periodic evaluations to exclude cancer in her liver apparently was told these were okay. She reports having an endoscopy in the past to search for varices was never told that she had these. Patient currently denies abdominal pain. She has had abdominal swelling and pedal edema in the past but not active at present. This morning she has somewhat slow mentation but reports it are that she is improved by the nursing staff. Patient denies any obvious signs of GI bleeding. Currently denies abdominal pain. She reports she was told that her cirrhosis is on the basis of LY[place]. Patient denies any history of hepatitis. She does admit to occasional wine intake in the past. She has been told she has a portal vein thrombus in the past. For this reason she is on Eliquis chronically period Review of Systems Review of Systems: All systems reviewed & are unremarkable except as noted in HPI and below PMFSH Past Medical History Medical History (Updated 08/12/21 @ 10:00 by Aristides Soliman MD) C. difficile colitis (~12/2019) Cirrhosis Diabetes mellitus HTN (hypertension) Lung cancer Portal vein thrombosis Thrombocytopenia Surgical History Surgical History History of endometrial ablation Family History Family History Mother Family history of malignant neoplasm of breast in first degree relative Father Family history of malignant neoplasm of esophagus Social History Social History Smoking status: Current some day smoker Tobacco type: cigarettes Second hand tobacco smoke exposure: Yes Alcohol intake: current Drinks per week: 1 Substance use: never Substance use type: does not use Gende
[2021-08-12 11:58] LABS: Glucose Point of Care 311 mg/dl (65-105)
--- NOTE | 2021-08-12 13:34 | PM.IMPN ---
Progress Note: A&P Assessment and Plan (1) Acute hepatic encephalopathy: Code(s): K72.00 - Acute and subacute hepatic failure without coma Status: Acute Assessment and Plan: 2/2 cirrhosis Continue Xifaxan and Lactulose until the patient has 2-3 loose stools and will decreased down to Q 8 hours Ammonia 167-->145, repeat ammonia level in a.m. (2) Acute hypokalemia: Code(s): E87.6 - Hypokalemia Status: Acute Assessment and Plan: K+ 2.3 on admission-->3.1 today S/p 40 of p.o. potassium and 40 of IV potassium in the ER but hypokalemia persists Will give 40 meq KCL po in addition to scheduled dose (3) Hypomagnesemia: Code(s): E83.42 - Hypomagnesemia Status: Acute Assessment and Plan: Mg 1.4 on admission S/p 4 g magnesium sulfate Repeat in a.m. (4) Type 2 diabetes mellitus with hyperglycemia: Qualifiers: Diabetes mellitus nursing home insulin use: without termite renewal inspector use Qualified Code(s): E11.65 - Type 2 diabetes mellitus with hyperglycemia Code(s): E11.65 - Type 2 diabetes mellitus with hyperglycemia Status: Acute Assessment and Plan: Consistent carbohydrate diet Moderate dose sliding scale insulin has been ordered with Accu-Cheks a.c. HS and hypoglycemia protocol Monitor (5) Acute hyponatremia: Code(s): E87.1 - Hypo-osmolality and hyponatremia Status: Acute Assessment and Plan: Na+ 129 Fluid restriction 1200 Monitor (6) Cirrhosis of liver: Code(s): K74.60 - Unspecified cirrhosis of liver Status: Acute Assessment and Plan: Followed by Dr. Waters at [facility] Chronic portal vein thrombosis Will need to follow up o/p Pt has appointment on 08/17/21 Additional Plan Code status: FULL DVT Ppx: on Eliquis due to chronic portal vein thrombosis Subjective Date/time seen: 08/12/21 13:34 Interval history: Pt seen this a.m; labs, vs, diagnostic tests, consult notes reviewed; pt mental status has improved; denies any abdominal pain Review of Systems Review of Systems: All systems reviewed & are unremarkable except as noted in HPI and below Exam Const: General: no acute distress, alert and awake Orientation/consciousness: patient oriented x3 HENMT: Head: normocephalic and atraumatic Ears: external ears normal Face and sinus: face symmetric Mouth: Yes Normal oral and palatal mucosa present Eyes: Sclera: scleral abnormality (icteric) bilateral EOM: EOMs intact bilaterally Neck: Neck: full ROM, trachea midline and no JVD Chest: Chest palpation & inspection: normal inspection of the chest Resp: Effort & Inspection: normal respiratory effort Auscultation: clear to auscultation bilaterally Cardio: Jugular venous distension: no JVD Rate: regular rate Rhythm: regular rhythm Heart sounds: S1 normal heart sound present and S2 normal heart sound present GI: Inspection: normal to inspection GI Palp: Yes Soft to palpation Percussion: Yes normal to percussion Auscultation: normal bowel sounds : General: Yes no CVA tenderness Skin: General skin exam: no rashes or lesions noted Rashes: no rashes Neuro: General: patient oriented x3, moves all extremities and no focal motor deficits Cranial nerves: Yes Equal, round and reactive pupils present Speech: normal speech Extrem: General: edema Psych: Appearance: grossly normal Affect: normal affect Judgement: Good judgement present (Psych) Objective Data Vital Signs Vital Signs: Vital Signs - 24 hr 08/11/21 16:00 08/11/21 20:00 08/12/21 00:00 Temperature 36.9 C 36.6 C Pulse Rate 85 92 88 Respiratory Rate 20 20 Blood Pressure 125/59 L 137/49 L Pulse Oximetry 99 96 08/12/21 00:01 08/12/21 04:00 08/12/21 08:00 Temperature 36.2 C L 36.3 C L 36.4 C L Pulse Rate 86 91 89 Respiratory Rate 20 20 18 Blood Pressure 141/52 H 153/57 H 138/48 L Pulse Oximetry 97 96 99 08/12/21 12:00 Temperature 36.7 C Pulse Rate 88 Respiratory Ra
[2021-08-12 16:30] LABS: Glucose Point of Care 332 mg/dl (65-105)
[2021-08-12] MEDS: rifAXIMin 550 MG TABLET PO (21:06)
[2021-08-12 21:48] LABS: Glucose Point of Care 285 mg/dl (65-105)
[2021-08-13] VITALS (8 sets, daily range): BP systolic 129–135; BP diastolic 48–56; PULSE 81–96; RESP 20; TEMP 36–36.6; O2SAT 98–100
[2021-08-13] MEDS: LACTULOSE 20 GM/30 ML UDC PO ×3 (00:22→16:35)
[2021-08-13 05:35] LABS: Hematocrit 34.1 % (37.0-47.0); Hemoglobin 11.7 g/dL (12.0-15.0); Immature Platelet Fraction Pct 5.6 % (0.9-11.2); Mean Corpuscular HGB Conc 34.3 g/dl (32-36); Mean Corpuscular Hemoglobin 32.4 pg (26-34); Mean Corpuscular Volume 94.5 fl (80-100); Mean Platelet Volume 11.7 fl (7.4-10.4); Platelet Count Result 36 k/mm3 (150-375); Red Blood Count 3.61 M/mm3 (4.2-5.4); Red Cell Distribution Width 14.9 % (11.5-14.5); White Blood Count 2.9 K/mm3 (4.5-10.0)
[2021-08-13 05:41] LABS: Ammonia 113 umol/L (9-30); INR 1.5; Prothrombin Time 18.2 Seconds (11.1-14.7)
[2021-08-13 05:44] LABS: Anion Gap 6 mmol/L (8-16); Blood Urea Nitrogen 10 mg/dL (7-17); Carbon Dioxide 27 mmol/L (22-30); Chloride 96 mmol/L (98-107); Estimated CRCL calculation 99 ml/min; Estimated Glomerular Filt Rate > 60; Glucose 301 mg/dL (65-110); Magnesium 1.7 mg/dL (1.6-2.3); Potassium 3.6 mmol/L (3.4-5.0); Sodium 129 mmol/L (137-145)
[2021-08-13 08:05] LABS: Glucose Point of Care 320 mg/dl (65-105)
[2021-08-13] MEDS: POTASSIUM CHLORIDE 20 MEQ PACKET (FOR LIQUID) 40 MEQ PO (08:42)
[2021-08-13] MEDS: metFORMIN HCL 500 MG TABLET 1000 MG PO ×2 (08:42→16:35)
[2021-08-13] MEDS: MAGNESIUM OXIDE 400 MG TABLET PO (08:43)
[2021-08-13] MEDS: TORSEMIDE 20 MG TABLET 40 MG PO ×2 (08:43→16:35)
[2021-08-13] MEDS: DULoxetine HCL 30 MG CAPSULE.DR PO (08:43)
[2021-08-13] MEDS: INSULIN GLARGINE (*BKC) 100 UNITS/ML 10 UNITS SUB-Q (08:43)
[2021-08-13] MEDS: rifAXIMin 550 MG TABLET PO (08:43)
[2021-08-13] MEDS: APIXABAN 2.5 MG TABLET PO (08:43)
[2021-08-13] MEDS: PANTOPRAZOLE 40 MG TABLET PO (08:43)
[2021-08-13] MEDS: INSULIN ASPART (*BKC) 100 UNITS/ML SUB-Q ×3 (08:45→16:35)
--- NOTE | 2021-08-13 09:19 | WPDGIPROGNO ---
Progress Note: A&P Assessment and Plan (1) Cirrhosis of liver: Code(s): K74.60 - Unspecified cirrhosis of liver Status: Acute Assessment and Plan: Patient with cirrhosis of the liver. Likely secondary to LYONS. Plan for supportive care. Currently followed at [facility]. Tolerating diet . plan for discharge with follow-up with GI service at [facility] as scheduled. (2) Acute hepatic encephalopathy: Code(s): K72.00 - Acute and subacute hepatic failure without coma Status: Acute Assessment and Plan: Kyle encephalopathy at admission appears improved. Continue lactulose and titrate dose to loose stools. Xifaxan 550 mg p.o. b.i.d. also started. Likely will need this for an extended period of time period (3) Acute hyponatremia: Code(s): E87.1 - Hypo-osmolality and hyponatremia Status: Acute Assessment and Plan: low sodium identified. Patient would benefit from fluid restriction as well as low-salt diet because of her history of ascites. (4) Type 2 diabetes mellitus with hyperglycemia: Qualifiers: Diabetes mellitus alf insulin use: without alf use Qualified Code(s): E11.65 - Type 2 diabetes mellitus with hyperglycemia Code(s): E11.65 - Type 2 diabetes mellitus with hyperglycemia Status: Acute Subjective Date/time seen: 08/13/21 09:19 Patient more alert today. Comfortable at rest. Tolerating diet. Fluid restriction because of low sodium. Salt restriction because of history of ascites. Review of Systems Review of Systems: All systems reviewed & are unremarkable except as noted in HPI and below Exam Narrative: Physical exam reveals Vital Signs be stable. HEENT exam is unremarkable. Lungs are clear. Heart without murmur. Abdomen bowel sounds present soft nontender no obvious organomegaly. Extremities with no edema. Objective Data Vital Signs Vital Signs: Vital Signs - 24 hr 08/12/21 12:00 08/12/21 16:00 08/12/21 18:00 Temperature 98.1 F 97.8 F Pulse Rate 90 93 97 Respiratory Rate 18 18 Blood Pressure 145/50 H 144/59 H Pulse Oximetry 98 97 08/12/21 19:24 08/12/21 20:00 08/13/21 00:00 Temperature 97.6 F Pulse Rate 98 103 H 96 Respiratory Rate 20 20 Blood Pressure 145/47 H Pulse Oximetry 93 93 08/13/21 00:48 08/13/21 04:00 08/13/21 04:31 Temperature 97.1 F L 96.8 F L Pulse Rate 88 83 82 Respiratory Rate 20 20 Blood Pressure 135/48 L 129/52 L Pulse Oximetry 98 99 Intake/Output Intake/Output: Intake & Output 08/10/21 08/11/21 08/12/21 08/13/21 23:59 23:59 23:59 23:59 Intake Total 1870 2670 390 Output Total 300 800 400 Balance -300 1070 2270 390 Meds/Results Medications: Active Medications Generic Name Dose Route Start Last Admin Trade Name Freq PRN Reason Stop Dose Admin Hydrocodone Bitart/Acetaminophen 1 tab 08/10/21 22:17 Hydrocodone/Acetaminophen (*Crx) 5-325 Mg Tablet PO Q4H PRN Pain Rated 4-6 Apixaban 2.5 mg 08/11/21 09:00 08/13/21 08:43 Apixaban 2.5 Mg Tablet PO 2.5 mg Q12HR ALPA Administration Dextrose 12.5 gm 08/11/21 03:21 Dextrose 50% 25 Gm/50 Ml Syringe IV PUSH PRN PRN Hypoglycemia Protocol Duloxetine HCl 30 mg 08/11/21 09:00 08/13/21 08:43 Duloxetine Hcl 30 Mg Capsule.Dr PO 30 mg DAILY ALPA Administration Glucagon 1 mg 08/11/21 03:21 Glucagon For Inj 1 Mg Vial IM PRN PRN Hypoglycemia Protocol Glucose 15 gm 08/11/21 03:21 Glucose Oral Gel 15 Gm Of Glucse In 37.5 Gm Tube PO PRN PRN Hypoglycemia Protocol Dextrose 1,000 mls @ 100 mls/hr 08/11/21 03:21 Dextrose 5% 1,000 Ml IVPB PRN PRN Hypoglycemia Protocol Insulin Aspart 4 - 8 units 08/11/21 08:00 08/13/21 08:45 Insulin Aspart (*Bkc) 100 Units/Ml SUB-Q 6 units TIDWM ALPA Administration Protocol Insulin Glargine 10 units 08/11/21 09:00 08/13/21 08:43 Insulin Glargine (*Bkc) 1
[2021-08-13 11:55] LABS: Glucose Point of Care 277 mg/dl (65-105)
--- NOTE | 2021-08-13 12:45 | PM.DS ---
DS: Admitting Diagnosis Discharge Date Date of service 08/13/2021 at 1245 Admitting Diagnosis acute hepatic encephalopathy DS: Discharge Diagnosis Discharge Diagnosis (1) Acute hepatic encephalopathy: Code(s): K72.00 - Acute and subacute hepatic failure without coma Status: Acute Assessment and Plan: 2/2 cirrhosis Continue Xifaxan and Lactulose until the patient has 2-3 loose stools and will decreased down to Q 8 hours Ammonia 167-->145, repeat ammonia level in a.m. (2) Acute hypokalemia: Code(s): E87.6 - Hypokalemia Status: Acute Assessment and Plan: K+ 2.3 on admission-->3.1 today S/p 40 of p.o. potassium and 40 of IV potassium in the ER but hypokalemia persists Will give 40 meq KCL po in addition to scheduled dose (3) Hypomagnesemia: Code(s): E83.42 - Hypomagnesemia Status: Acute Assessment and Plan: Mg 1.4 on admission S/p 4 g magnesium sulfate Repeat in a.m. (4) Type 2 diabetes mellitus with hyperglycemia: Qualifiers: Diabetes mellitus intermediate project manager insulin use: without mcc use Qualified Code(s): E11.65 - Type 2 diabetes mellitus with hyperglycemia Code(s): E11.65 - Type 2 diabetes mellitus with hyperglycemia Status: Acute Assessment and Plan: Consistent carbohydrate diet Moderate dose sliding scale insulin has been ordered with Accu-Cheks a.c. HS and hypoglycemia protocol Monitor (5) Acute hyponatremia: Code(s): E87.1 - Hypo-osmolality and hyponatremia Status: Acute Assessment and Plan: Na+ 129 Fluid restriction 1200 Monitor (6) Cirrhosis of liver: Code(s): K74.60 - Unspecified cirrhosis of liver Status: Acute Assessment and Plan: Followed by Dr. Waters at [facility] Chronic portal vein thrombosis Will need to follow up o/p Pt has appointment on 08/17/21 DS: Summary Hospital Course Hospital Course: patient is a 60-year-old female with past medical history of diabetes, hypertension, portal vein thrombosis, chronic thrombocytopenia and cirrhosis who presented the ED with increased confusion. The family reported that the patient has been more confused and was not able to answer questions appropriately. Ammonia upon admission was 167 patient was given lactulose and Xifaxan and ammonia has decreased significantly. Patient was also noted to be more alert oriented. Patient has an appoint with her liver specialist at [facility] on 08/17/2021. GI was consulted and recommendations have been carried out. Potassium was also noted to be low at 2.3 and it was supplemented with oral potassium. Magnesium was also low at 1.4 which was also supplemented. Glucoses have been maintained but have been run in 200 to 300s. Patient was enquiring about her and ammonia management home. Explained to patient she was going to go home on lactulose and Xifaxan. patient was also inquired about her potassium will supplement potassium 10 mics every day. Patient is ready to go in she denies any chest pain, nausea, vomiting, diarrhea, constipation, weakness, fatigue, and sweats, fevers, chills. Status at Discharge Functional status at discharge: independent ambulation Overall status at discharge: patient is progressing back to baseline Time Spent with Patient Time attestation: Total time spent providing and/or coordinating discharge services: 43 minutes Time spent: Greater than 30 minutes Exam Const: General: no acute distress, alert and awake Orientation/consciousness: patient oriented x3 HENMT: Head: normocephalic and atraumatic Ears: external ears normal Face and sinus: face symmetric Mouth: Yes Normal oral and palatal mucosa present Eyes: Sclera: scleral abnormality (icteric) bilateral Pupils: Equal, round and reactive pupils present EOM: EOMs intact bilaterally Neck: Neck: full ROM, trachea midline and no JVD Chest: Chest palpation & inspection: normal inspection of the chest Resp: Effort & Inspecti
[2021-08-13 16:30] LABS: Glucose Point of Care 284 mg/dl (65-105)
== END 2021-08-13 17:05 | disposition home or self-care (01) | DRG 441 ==
LOC: ANHED 22:19 → ANH2MED 23:07
PROVIDERS: Internal Medicine; Nurse Practitioner Adult Health; Admitting Provider Internal Medicine; Emergency Provider Emergency Medicine; PCP Internal Medicine; Visit Provider Nurse Practitioner
DX: K72.00 Acute and subacute hepatic failure without coma (principal); I81 Portal vein thrombosis; E87.1 Hypo-osmolality and hyponatremia; K74.60 Unspecified cirrhosis of liver; E87.6 Hypokalemia; E83.42 Hypomagnesemia; E11.65 Type 2 diabetes mellitus with hyperglycemia; I10 Essential (primary) hypertension; D69.6 Thrombocytopenia, unspecified; F17.210 Nicotine dependence, cigarettes, uncomplicated; E66.01 Morbid (severe) obesity due to excess calories; Z68.34 Body mass index [BMI] 34.0-34.9, adult; Z85.118 Personal history of other malignant neoplasm of bronchus and lung; Z79.01 Long term (current) use of anticoagulants
CPT/HCPCS: 36415; 51701; 80048; 80053; 81001; 82140; 82948; 83735; 84132; 85025; 85027; 85055; 85610; 85730; 96374; 99285; A9270; J1815; J3475; J3480; J7040

== ENCOUNTER 2021-10-10 11:39 | Observation (INO) | payer BC, SELFPAY ==
--- NOTE | ~2021-10-10 | CT_ITS ---
EXAMINATION: CT abdomen pelvis w con DATE: 10/10/2021 13:36 INDICATION: Generalized weakness and lethargy. TECHNIQUE: Computed tomography (CT) of the abdomen and pelvis was performed with 100 cc Omnipaque 350 intravenous contrast. The dose-length product was 1224.99 mGy-cm. Automated exposure control and ite rative reconstruction technique were employed. COMPARISON: CT dated 12/24/2019 FINDINGS: There is a stable 10 mm right lower lobe nodule, likely benign. There is a 4 cm liver cyst. Fatty infiltration of the liver. Heart size normal. No significant pleural or pericardial effusion. Splenomegaly. There are dilated varicose veins in the upper abdomen suggesting portal hypertension. T here is nodular liver surface, consistent with cirrhosis. The adrenal glands and kidneys are unremark able. Nonobstructive bowel gas pattern. Fat-containing umbilical hernia. No abnormal pelvic masses or fluid collections. No lymphadenopathy. No evidence for aortic aneurysm. Small fat-containing umbilic al hernia. IMPRESSION: 1. Cirrhosis of the liver with portal hypertension and splenomegaly. 2: Stable 10 mm right lower lobe nodule, likely benign. Follow-up low dose CT in 12 months recommende d. Reviewed, dictated and finalized at location A. CAL BILLER/CODER IMPRESSION: 1. Cirrhosis of the liver with portal hypertension and splenomegaly. 2: Stable 10 mm right lower lobe nodule, likely benign. Follow-up low dose CT i n 12 months recommended.
--- NOTE | ~2021-10-10 | XR_ITS ---
XR chest 1V portable DATE: 10/10/2021 16:21 INDICATION: Elevated lactic acid. History of smoking. TECHNIQUE: Portable upright AP chest on 10/10/2021 at 1622 hours COMPARISON: 02/12/2021 PA and lateral chest FINDINGS: Normal heart size. No hilar or mediastinal enlargement. No pulmonary infiltrate or consolid ation, pleural effusion or pulmonary vascular congestion or pneumothorax. Normal heart size. No hilar or mediastinal enlargement. Included skeletal structures are unremarkable. IMPRESSION: No active cardiopulmonary disease Reviewed, dictated and finalized at location A. PICKER
--- NOTE | ~2021-10-10 | CT_ITS ---
EXAMINATION: CT BRAIN W/O DATE: 10/10/2021 13:02 INDICATION: Confusion and lethargy TECHNIQUE: Computed tomography (CT) of the head was performed without intravenous contrast. The dose- length product was 605.33 mGy-cm. COMPARISON: No prior studies for comparison. FINDINGS: Normal brain parenchymal volume for age. Normal gonzalez-white differentiation. No acute intrac ranial hemorrhage, infarction, mass or mass effect. No ventriculomegaly or midline shift. Midline sagittal images demonstrate a normal corpus callosum, c raniovertebral junction and sella turcica. Basilar cisterns are patent. Paranasal sinuses and mastoids are pneumatized. No depressed skull fractures. IMPRESSION: 1. No acute intracranial abnormality. Reviewed, dictated and finalized at location A. DRY EQUIPMENT OPERATOR
[2021-10-10 11:57] VITALS: BP 156/66; PULSE 78; RESP 16; TEMP 35.8; O2SAT 98
--- NOTE | 2021-10-10 12:06 | ECG_ITS ---
Measurements Intervals [place] Rate: 77 P: 61 NC: 161 QRS: 18 QRSD: 82 T: 47 QT: 382 QTc: 433 Interpretive Statements SINUS RHYTHM NON-SPECIFIC ST SEGMENT ABNORMALITY Electronically Signed On 10-10-2021 12:33:41 VIDEOGAME DESIGNER by Eleuterio Pierce M.D.
[2021-10-10 12:32] LABS: Hematocrit 44.9 % (35.0-49.0); Hemoglobin 15.6 g/dL (12.0-15.0); Immature Platelet Fraction Pct 4.2 % (1.0-7.0); Mean Corpuscular HGB Conc 34.7 g/dL (32.0-36.0); Mean Corpuscular Hemoglobin 31.2 pg (27.0-31.0); Mean Corpuscular Volume 89.8 fL (78.0-102.0); Mean Platelet Volume 11.3 fl (9.2-11.8); Platelet Count Result 44 K/mm3 (150-420); Red Cell Distribution Width 14.8 % (11.6-14.4)
[2021-10-10 12:43] LABS: Band Neutrophils Percent 0 % (0-6); Basophils Absolute Manual 0.04 K/mm3 (0-0.1); Basophils Percent Manual 1 % (0-1); Eosinophils Absolute Manual 0.52 K/mm3 (0.02-0.5); Eosinophils Percent Manual 13 % (1-6); Lymphocytes Percent Manual 20 % (18-44); Monocytes Absolute Manual 0.44 K/mm3 (0.1-0.90); Monocytes Percent Manual 11 % (3-9); Neutrophils Percent Manual 55 % (46-73); Platelet Estimate Decreased (Adequate); Total Cells Counted 100
[2021-10-10 12:46] LABS: Alanine Aminotransferase 21 U/L (14-59); Alkaline Phosphatase 120 U/L (46-116); Ammonia 113 umol/L (11-32); Anion Gap 10 mmol/L (8-16); Aspartate Amino Transferase 26 U/L (15-37); Bilirubin,Total 3.8 mg/dL (0.00-1.00); Blood Urea Nitrogen 15 mg/dL (7-18); Calcium 9.6 mg/dL (8.5-10.1); Carbon Dioxide 26 mmol/L (21-32); Chloride 98 mmol/L (98-108); Estimated CRCL calculation 56 ml/min; Estimated Glomerular Filt Rate 45; Glucose 293 mg/dL (70-99); Osmolality Calculated 289 mOsm/kg (285-295); Potassium 4.6 mmol/L (3.5-5.1); Sodium 134 mmol/L (136-145); Total Protein 6.7 g/dL (6.4-8.2); Troponin I 11.7 ng/L (0.00-60.4)
[2021-10-10 12:47] LABS: Ethanol < 3 mg/dL (0-6)
[2021-10-10 12:48] LABS: Lactic Acid Reflex 3.1 mmol/L (0.4-2.0)
[2021-10-10] MEDS: SODIUM CHLORIDE 0.9% IV 500 ML 999 ML IV CONT (12:57)
[2021-10-10] MEDS: PANTOPRAZOLE SODIUM IV 40 MG VIAL IV PUSH (14:16)
[2021-10-10] MEDS: ONDANSETRON INJ 4 MG/2 ML VIAL IV PUSH (14:16)
--- NOTE | 2021-10-10 14:30 | PC.NURSE ---
Patient arrived on unit via w/c accompanied by ER staff. Patient able to transfer from w/c to bed independently. Patient voided in bathroom x 1 prior to getting into bed. Alert and orientated to surroundings. Education provided on use of call light and TV remote.
[2021-10-10 15:24] VITALS: BP 157/69; PULSE 81; RESP 19; TEMP 37.1; O2SAT 98
[2021-10-10 15:27] LABS: Reflex Lactic Acid Yes or No Add Lactic
--- NOTE | 2021-10-10 15:30 | PC.NURSE ---
ordered enema. Patient tolerated well with moderate results. 16 fr gallego catheter inserted with 50 ml clear dark yellow urine obtained.
[2021-10-10 15:48] VITALS: BP 167/61; PULSE 71; RESP 16; TEMP 36.6; O2SAT 98
[2021-10-10 15:57] VITALS: BMI 36.9
[2021-10-10] MEDS: LACTULOSE ENEMA 200 GM/1,000 ML ENEMA RECTAL (16:53)
[2021-10-10] MEDS: POTASSIUM CHLORIDE 20 MEQ TABLET PO ×2 (16:53→20:29)
[2021-10-10] MEDS: LACTULOSE 20 GM/30 ML UDC 10 GM PO ×2 (16:53→20:29)
[2021-10-10 17:05] LABS: Glucose Point of Care 235 mg/dl (65-105)
[2021-10-10] MEDS: DEXTROSE 5%/0.9% SOD CHL 1,000 ML 100 ML IV CONT (17:39)
[2021-10-10 20:00] VITALS: BP 146/52; PULSE 68; RESP 20; TEMP 36; O2SAT 98
[2021-10-10 20:22] LABS: Ammonia 40 umol/L (11-32)
[2021-10-10] MEDS: APIXABAN 2.5 MG TABLET PO (20:22)
[2021-10-10 20:23] VITALS: PULSE 72
[2021-10-10] MEDS: METOPROLOL TARTRATE 25 MG TABLET PO (20:23)
[2021-10-10 20:28] LABS: Lactic Acid 2.2 mmol/L (0.4-2.0)
[2021-10-10] MEDS: rifAXIMin 550 MG TABLET PO (20:29)
[2021-10-10 21:52] LABS: Add Urine Microscopic? YES; Appearance Urine Clear (Clear); Bilirubin Urine Negative (Negative); Blood Urine 2+ (Negative); Color Urine Yellow (Yellow); Glucose Urine UA 1+ (Negative); Ketones Urine Trace (Negative); Leukocyte Esterase Ur Negative (Negative); Nitrate Urine Negative (Negative); Protein Urine Negative (Negative); Specific Grav Ur 1.025 (1.010-1.020); Urobilinogen Urine 0.2 mg/dL (0.2-1.0)
[2021-10-10 21:57] LABS: Bacteria Urine 1+ /hpf; Squamous Epithelial Cell Urine Rare /hpf (Few); WBC Urine 0-3 /hpf (0-3)
[2021-10-10 21:59] LABS: Amphetamine Screen Urine Negative (Negative); Barbiturate Screen Urine Negative (Negative); Benzodiazepines Screen Urine Negative (Negative); Cannabinoid Screen Urine Negative (Negative); Cocaine Screen Urine Negative (Negative); Methadone Screen Urine Negative (Negative); Opiate Screen Urine Negative (Negative); Phencyclidine Screen Urine Negative (Negative)
[2021-10-11] VITALS: BP 146/69; PULSE 76; RESP 18; TEMP 36.6; O2SAT 98
[2021-10-11] MEDS: LACTULOSE 20 GM/30 ML UDC 10 GM PO ×2 (00:38→05:09)
[2021-10-11 00:39] LABS: Glucose Point of Care 292 mg/dl (65-105)
[2021-10-11 04:00] VITALS: BP 147/64; PULSE 76; RESP 18; TEMP 36.6; O2SAT 97
[2021-10-11] MEDS: DEXTROSE 5%/0.9% SOD CHL 1,000 ML 100 ML IV CONT (04:15)
[2021-10-11 05:14] LABS: Glucose Point of Care 305 mg/dl (65-105)
[2021-10-11 05:28] LABS: Hematocrit 42.9 % (35.0-49.0); Hemoglobin 14.2 g/dL (12.0-15.0); Mean Corpuscular HGB Conc 33.1 g/dL (32.0-36.0); Mean Corpuscular Hemoglobin 30.1 pg (27.0-31.0); Mean Corpuscular Volume 90.9 fL (78.0-102.0); Mean Platelet Volume 12.6 fl (9.2-11.8); Platelet Count Result 46 K/mm3 (150-420); Red Blood Count 4.72 M/mm3 (4.20-5.40); Red Cell Distribution Width 14.9 % (11.6-14.4); White Blood Count 4.7 K/mm3 (4.8-10.8)
[2021-10-11 05:43] LABS: Alanine Aminotransferase 10 U/L (14-59); Albumin Level 2.4 g/dL (3.4-5.0); Alkaline Phosphatase 104 U/L (46-116); Ammonia 50 umol/L (11-32); Anion Gap 8 mmol/L (8-16); Aspartate Amino Transferase 19 U/L (15-37); Bilirubin,Total 3.1 mg/dL (0.00-1.00); Blood Urea Nitrogen 12 mg/dL (7-18); Calcium 8.5 mg/dL (8.5-10.1); Carbon Dioxide 26 mmol/L (21-32); Chloride 105 mmol/L (98-108); Estimated CRCL calculation 63 ml/min; Estimated Glomerular Filt Rate 53; Glucose 343 mg/dL (70-99); Magnesium 2.2 mg/dL (1.8-2.4); Osmolality Calculated 301 mOsm/kg (285-295); Potassium 4.3 mmol/L (3.5-5.1); Sodium 139 mmol/L (136-145); Total Protein 5.8 g/dL (6.4-8.2)
[2021-10-11 05:50] LABS: Lactic Acid Reflex 2.3 mmol/L (0.4-2.0)
[2021-10-11 07:43] LABS: Glucose Point of Care 324 mg/dl (65-105)
[2021-10-11 08:00] VITALS: PULSE 73; RESP 14; TEMP 36.6; O2SAT 98
[2021-10-11 08:23] LABS: Reflex Lactic Acid Yes or No Add Lactic
[2021-10-11 09:01] VITALS: PULSE 73
[2021-10-11] MEDS: DULoxetine HCL 30 MG CAPSULE.DR PO (09:01)
[2021-10-11] MEDS: rifAXIMin 550 MG TABLET PO (09:01)
[2021-10-11] MEDS: TORSEMIDE 20 MG TABLET 80 MG PO (09:01)
[2021-10-11] MEDS: METOPROLOL TARTRATE 25 MG TABLET PO (09:01)
[2021-10-11] MEDS: MAGNESIUM OXIDE 400 MG TABLET PO (09:02)
[2021-10-11] MEDS: APIXABAN 2.5 MG TABLET PO (09:02)
[2021-10-11] MEDS: POTASSIUM CHLORIDE 20 MEQ TABLET PO (09:02)
[2021-10-11 09:19] LABS: Lactic Acid 3.2 mmol/L (0.4-2.0)
[2021-10-11] MEDS: PANTOPRAZOLE SODIUM IV 40 MG VIAL IV PUSH (09:20)
[2021-10-11 11:49] LABS: Glucose Point of Care 388 mg/dl (65-105)
[2021-10-11 11:57] VITALS: BP 150/65; PULSE 75; RESP 14; TEMP 36.6; O2SAT 98
[2021-10-11 12:05] LABS: Ammonia 33 umol/L (11-32)
--- NOTE | 2021-10-11 12:33 | PM.SD2 ---
Same Day Admit/Disch: HPI History of Present Illness Chief complaint: cirrohosis,hepatic,encephalopathy,elevated ammonia Narrative: Aleah Levine is a 60 year old female was admitted to the hospital was found to have an ammonia level of 113 on admission she was given lactulose enema. Patient was found to have some thrombocytopenia which is a chronic condition she is well aware of. Patient also was noted to be confused alert but obvious moments of confusion she was admitted as observation to treat her ammonia level PMFSH Past Medical History Medical History C. difficile colitis (~12/2019) Cirrhosis Diabetes mellitus HTN (hypertension) Lung cancer Portal vein thrombosis Thrombocytopenia Surgical History Surgical History History of endometrial ablation Family History Family History Mother Family history of malignant neoplasm of breast in first degree relative Father Family history of malignant neoplasm of esophagus Social History Social History Smoking packs per day: 0.25 Smoking cigarettes per day: 5.0 Smoking status: Former smoker Tobacco type: cigarettes Second hand tobacco smoke exposure: Yes Smoking end date: 10/10/21 Alcohol intake: current Drinks per week: 1 Substance use: never Substance use type: does not use Gender identity (if verbalized by the patient): Female Spiritual care concerns: No Same Day Admit/Disch: Med Pre-admit Medications Home Medications Medication Instructions Recorded Confirmed Type Eliquis 2.5 mg PO BID 12/24/19 10/10/21 History Victoza 3-Lai 1.8 mg SUBCUT DAILY 12/24/19 10/10/21 History metformin 1,000 mg PO BID 12/24/19 10/10/21 History magnesium oxide 400 mg PO DAILY 30 Days #30 tablet 12/26/19 10/10/21 Rx duloxetine 30 mg PO DAILY 08/11/21 10/10/21 History pantoprazole 40 mg PO DAILY 08/11/21 10/10/21 History torsemide 80 mg PO DAILY 08/11/21 10/10/21 History lactulose 20 g PO BID #1500 ml 08/13/21 10/10/21 Rx rifaximin [Xifaxan] 550 mg PO Q12HR #60 tablet 08/13/21 10/10/21 Rx insulin glargine U-300 conc 52 unit SUBCUT DAILY 10/10/21 10/10/21 History [Toujeo Max U-300 SoloStar] metoprolol tartrate 25 mg PO BID 10/10/21 10/10/21 History potassium chloride 20 meq PO QID 10/10/21 10/10/21 History spironolactone 100 mg PO BID 10/10/21 10/10/21 History Exam Narrative: GENERAL:Well-appearing, well-nourished, and in no acute distress. HEAD:Normocephalic, atraumatic. EYES: PERRLA and EOMI. ENT: Nares clear, no rhinorrhea or epistaxis. Mucous membranes moist. NECK: Supple. CHEST: Clear to auscultation. No respiratory distress. HEART: Regular rate and rhythm. Normal peripheral pulses. ABDOMEN: Soft, nontender, nondistended, normal active bowel sounds. EXTREMITIES: Normal range of motion. No edema.left foot slightly larger than the right SKIN: Warm, dry, no rash. NEURO: No focal deficits. Alert and oriented x3. DS: Data Data Completed and Pending Labs on day of discharge: Labs from last 24 hours 10/11/21 10/11/21 10/11/21 11:43 11:26 11:26 WBC RBC Hgb Hct MCV MCH MCHC RDW Plt Count MPV Immature Gran % (Auto) Neut % (Auto) Lymph % (Auto) [place] % (Auto) Eos % (Auto) Baso % (Auto) Lymph # (Auto) [place] # (Auto) Eos # (Auto) Baso # (Auto) Abs Immat Gran (auto) Absolute Neuts (auto) Absolute Nucleated RBC Total Counted Neutrophils % (Manual) Band Neutrophils % Lymphocytes % (Manual) Monocytes % (Manual) Eosinophils % (Manual) Basophils % (Manual) Nucleated RBC % Abs Neuts (Manual) Abs Lymphs (Manual) Abs Monocytes (Manual) Absolute Eos (Manual) Abs Basophils (Manual) Platelet Estimate % Imm
--- NOTE | 2021-10-11 13:28 | PC.NURSE ---
Pt discharged to home with VSS. Pt given discharge instructions. Pt IV's removed by RN. RN took pt by WC to family car.
--- NOTE | 2021-10-12 10:18 | PC.NURSE ---
discharge call back completed, instructions reviewed with patient, no questions or concerns, does have a follow up appointment next week with PMD, no concerns regarding visit.
--- NOTE | 2021-12-23 07:26 | ED.AMS ---
HPI - Altered Mental Status General Chief Complaint: Altered Mental Status Stated Complaint: stumbled at dr office/confusion Time Seen by Provider: 10/10/21 11:42 Source: patient and RN notes reviewed Mode of arrival: wheelchair Limitations: altered mental status History of Present Illness complaint: altered mental status and confusion Onset (ago): day(s) (1) Timing confirmed by: other (pt was sent from PMD office) Severity: mild Consistency of symptoms: waxing and waning Context: history of similar presentation and liver disease Associated symptoms: malaise, nausea/vomiting and weakness Related Data Home Medications Medication Instructions Recorded Confirmed Eliquis 2.5 mg PO BID 12/24/19 11/10/21 Victoza 3-Lai 1.8 mg SUBCUT DAILY 12/24/19 11/10/21 metformin 1,000 mg PO BID 12/24/19 11/10/21 duloxetine 30 mg PO DAILY 08/11/21 11/10/21 pantoprazole 40 mg PO DAILY 08/11/21 11/10/21 torsemide 80 mg PO DAILY 08/11/21 11/10/21 Toujeo Max U-300 SoloStar 52 unit SUBCUT DAILY 10/10/21 11/10/21 metoprolol tartrate 25 mg PO BID 10/10/21 11/10/21 potassium chloride 20 meq PO QID 10/10/21 11/10/21 spironolactone 100 mg PO BID 10/10/21 11/10/21 Allergies Allergy/AdvReac Type Severity Reaction Status Date / Time Sulfa (Sulfonamide Allergy Mild ITCHING Verified 11/10/21 10:29 Antibiotics) sulfanilamide Allergy Unknown Other Verified 11/10/21 10:29 Review of Systems Review of Systems: All systems reviewed & are unremarkable except as noted in HPI and below PMFSH Past Medical History Medical History (Updated 12/23/21 @ 07:54 by Marcie Nolasco MD) C. difficile colitis (~12/2019) Cirrhosis Confusion Diabetes mellitus HTN (hypertension) Lung cancer Portal vein thrombosis Thrombocytopenia Surgical History Surgical History H/O sinus surgery History of endometrial ablation History of liver biopsy Family History Family History Mother Family history of malignant neoplasm of breast in first degree relative Father Family history of malignant neoplasm of esophagus Social History Social History Smoking packs per day: 0.25 Smoking cigarettes per day: 5.0 Smoking status: Former smoker Tobacco type: cigarettes Second hand tobacco smoke exposure: Yes Smoking end date: 10/10/21 Alcohol intake: current Drinks per week: 1 Substance use: never Substance use type: does not use Gender identity (if verbalized by the patient): Female Spiritual care concerns: No Exam Const: General: no acute distress and alert Nutritional Appearance: obese Orientation/consciousness: patient oriented x3 HENMT: Head: normal to inspection Ears: external ears normal, TM's normal bilaterally and EAC's normal General nose exam: Normal external nose present and Normal nares present Face and sinus: normal facial exam and sinuses nontender Mouth: Yes moist mucous membranes Eyes: Conjunctivae: conjunctivae normal Pupils: Equal, round and reactive pupils present EOM: EOMs intact bilaterally Neck: Neck: normal visual inspection and no lymphadenopathy Chest: Chest palpation & inspection: normal inspection of the chest Resp: Effort & Inspection: normal respiratory effort Auscultation: clear to auscultation bilaterally Cardio: Rate: regular rate Rhythm: regular rhythm GI: GI Palp: Yes Soft to palpation and No Tenderness to palpation present (GI) Auscultation: normal bowel sounds : General: Yes bladder normal to palpation and Yes no CVA tenderness Back/Spine/Pelvis: Back: no CVA tenderness Skin: General skin exam: normal color Neuro: General: patient oriented x3, moves all extremities, no meningeal signs, no focal motor deficits and CN's II-XI intact bilaterally Extrem: General: normal to inspection and no pedal edema Psych: Appearance: grossly no
== END 2021-10-11 13:15 | disposition home or self-care (01) ==
LOC: CHSED 11:42 → CHS2ND 15:12
PROVIDERS: Nurse Practitioner; Nurse Practitioner Family; Admitting Provider Internal Medicine; Emergency Provider Emergency Medicine; PCP Internal Medicine; Visit Provider Internal Medicine
DX: K74.60 Unspecified cirrhosis of liver (principal); K72.90 Hepatic failure, unspecified without coma; E11.9 Type 2 diabetes mellitus without complications; E72.20 Disorder of urea cycle metabolism, unspecified; I10 Essential (primary) hypertension; D69.6 Thrombocytopenia, unspecified; Z87.891 Personal history of nicotine dependence; Z79.899 Other long term (current) drug therapy
CPT/HCPCS: 36415; 70450; 71045; 74177; 80053; 80307; 81001; 82140; 82948; 83605; 83735; 84484; 85025; 85027; 85055; 87510; 93005; 96361; 96365; 96366; 96374; 96375; 96376; 97165; 99285; A9270; C9113; G0378; J1815; J2405; J7040; J7042; Q9967

== ENCOUNTER 2021-10-16 07:59 | Emergency (ER) | payer BC, SELFPAY ==
[2021-10-16 08:05] VITALS: BP 153/64; PULSE 16; RESP 16; TEMP 36.6; O2SAT 98
--- NOTE | 2021-10-16 08:09 | ED.AMS ---
HPI - Altered Mental Status General Chief Complaint: Altered Mental Status Stated Complaint: confusion, fatigue, Time Seen by Provider: 10/16/21 08:13 Source: patient and RN notes reviewed Mode of arrival: wheelchair Limitations: no limitations History of Present Illness HPI narrative: patient has a history of liver cirrhosis. She was recently here for elevated ammonia level. She thinks that her ammonia level is elevated again. complaint: confusion Onset (ago): day(s) (2) Timing confirmed by: spouse Severity: moderate Consistency of symptoms: waxing and waning Context: history of similar presentation Associated symptoms: denies other symptoms Related Data Home Medications Medication Instructions Recorded Confirmed Eliquis 2.5 mg PO BID 12/24/19 10/16/21 Victoza 3-Lai 1.8 mg SUBCUT DAILY 12/24/19 10/16/21 metformin 1,000 mg PO BID 12/24/19 10/16/21 duloxetine 30 mg PO DAILY 08/11/21 10/16/21 pantoprazole 40 mg PO DAILY 08/11/21 10/16/21 torsemide 80 mg PO DAILY 08/11/21 10/16/21 Toujeo Max U-300 SoloStar 52 unit SUBCUT DAILY 10/10/21 10/16/21 metoprolol tartrate 25 mg PO BID 10/10/21 10/16/21 potassium chloride 20 meq PO QID 10/10/21 10/16/21 spironolactone 100 mg PO BID 10/10/21 10/16/21 Allergies Allergy/AdvReac Type Severity Reaction Status Date / Time Sulfa (Sulfonamide Allergy Mild ITCHING Verified 10/16/21 08:18 Antibiotics) sulfanilamide Allergy Unknown Other Verified 10/16/21 08:18 Review of Systems Review of Systems: All systems reviewed & are unremarkable except as noted in HPI and below Gastrointestinal: Gastrointestinal: Reports vomiting PMFSH Past Medical History Medical History C. difficile colitis (~12/2019) Cirrhosis Diabetes mellitus HTN (hypertension) Lung cancer Portal vein thrombosis Thrombocytopenia Surgical History Surgical History History of endometrial ablation Family History Family History Mother Family history of malignant neoplasm of breast in first degree relative Father Family history of malignant neoplasm of esophagus Social History Social History Smoking packs per day: 0.25 Smoking cigarettes per day: 5.0 Smoking status: Former smoker Tobacco type: cigarettes Second hand tobacco smoke exposure: Yes Smoking end date: 10/10/21 Alcohol intake: current Drinks per week: 1 Substance use: never Substance use type: does not use Gender identity (if verbalized by the patient): Female Spiritual care concerns: No Exam Const: General: no acute distress and confusion ( Difficulty focusing repeats question) Nutritional Appearance: obese morbidly obese HENMT: Head: normal to inspection Ears: external ears normal Eyes: Conjunctivae: conjunctivae normal Pupils: Equal, round and reactive pupils present EOM: EOMs intact bilaterally Neck: Neck: normal visual inspection Resp: Effort & Inspection: normal respiratory effort Auscultation: clear to auscultation bilaterally Cardio: Rate: regular rate Rhythm: regular rhythm GI: GI Palp: Yes Soft to palpation and No Tenderness to palpation present (GI) Auscultation: normal bowel sounds Back/Spine/Pelvis: Cervical Spine: cervical ROM normal Thoracic/Lumbar Spine: thoraco-lumbar ROM normal Skin: General skin exam: normal color Rashes: no rashes Neuro: General: patient oriented x3, moves all extremities, no focal motor deficits and CN's II-XI intact bilaterally Speech: Abnormal speech present slurred Extrem: General: normal to inspection and no clubbing, cyanosis or edema Psych: Appearance: grossly normal Mental Status: mental status grossly normal Affect: normal affect Attitude: cooperative Thought content: Yes Normal thought content present Course Course Emergency Course:
[2021-10-16 08:21] LABS: Glucose Point of Care 185 mg/dl (65-105)
[2021-10-16 08:42] LABS: Basophils Absolute Auto 0.03 K/mm3 (0.00-0.10); Basophils Percent Auto 0.4 % (0.0-1.0); Eosinophils Absolute Auto 0.43 K/mm3 (0.02-0.50); Eosinophils Percent Auto 5.9 % (1.0-6.0); Hematocrit 46.5 % (35.0-49.0); Hemoglobin 16.2 g/dL (12.0-15.0); Immature Granulocyte Absolute 0.03 K/mm3 (0.00-0.00); Immature Granulocyte Percent A 0.4 % (0.0-0.0); Immature Platelet Fraction Pct 4.3 % (1.0-7.0); Lymphocytes Absolute Auto 1.24 K/mm3 (1.10-4.50); Lymphocytes Percent Auto 17.1 % (18.0-42.0); Mean Corpuscular HGB Conc 34.8 g/dL (32.0-36.0); Mean Corpuscular Hemoglobin 30.9 pg (27.0-31.0); Mean Corpuscular Volume 88.6 fL (78.0-102.0); Mean Platelet Volume 12.2 fl (9.2-11.8); Neutrophils Absolute Auto 4.7 K/mm3 (1.7-7.2); Neutrophils Percent Auto 65.2 % (50.0-70.0); Platelet Count Result 70 K/mm3 (150-420); Red Blood Count 5.25 M/mm3 (4.20-5.40); Red Cell Distribution Width 15.3 % (11.6-14.4); White Blood Count 7.3 K/mm3 (4.8-10.8)
[2021-10-16 08:55] LABS: Alanine Aminotransferase 23 U/L (14-59); Albumin Level 3.2 g/dL (3.4-5.0); Alkaline Phosphatase 113 U/L (46-116); Ammonia 101 umol/L (11-32); Anion Gap 13 mmol/L (8-16); Aspartate Amino Transferase 28 U/L (15-37); Bilirubin,Total 3.9 mg/dL (0.00-1.00); Blood Urea Nitrogen 21 mg/dL (7-18); Calcium 9.7 mg/dL (8.5-10.1); Carbon Dioxide 25 mmol/L (21-32); Chloride 98 mmol/L (98-108); Estimated CRCL calculation 46 ml/min; Estimated Glomerular Filt Rate 36; Glucose 208 mg/dL (70-99); Osmolality Calculated 291 mOsm/kg (285-295); Potassium 4.6 mmol/L (3.5-5.1); Sodium 136 mmol/L (136-145)
[2021-10-16] MEDS: LACTULOSE ENEMA 200 GM/1,000 ML ENEMA RECTAL (09:40)
--- NOTE | 2021-10-16 10:08 | PC.NURSE ---
pt up to bedside commode and had large soft BM. transfers easily without assistance. back to stretcher. rails ^ bilat and call carroll within reach. denies nausea. pt remains A&Ox3. speech remains slurred. follows directions with occasional need to repeat
[2021-10-16 10:14] VITALS: BP 142/65; PULSE 85; RESP 16; TEMP 36.7; O2SAT 99
[2021-10-16 12:18] VITALS: BP 159/76; PULSE 74; RESP 16; TEMP 36.8; O2SAT 100
== END 2021-10-16 12:13 | disposition home or self-care (01) ==
PROVIDERS: Emergency Provider Emergency Medicine; PCP Internal Medicine
DX: E72.20 Disorder of urea cycle metabolism, unspecified (principal); E11.9 Type 2 diabetes mellitus without complications; I10 Essential (primary) hypertension; Z87.891 Personal history of nicotine dependence
CPT/HCPCS: 36415; 80053; 82140; 82948; 85025; 85055; 99283

== ENCOUNTER 2021-12-30 16:26 | Emergency (ER) | payer BC, SELFPAY ==
--- NOTE | ~2021-12-30 | CT_ITS ---
EXAMINATION: CT brain wo con DATE: 12/30/2021 17:43 INDICATION: increasing confusion and garbled speech since yesterday AM . TECHNIQUE: Computed tomography (CT) of the head was performed without intravenous contrast. The mA wa s adjusted according to patient size. Iterative reconstruction technique was employed. The dose-lengt h product was 681.00 mGy-cm. COMPARISON: 10/10/2021. FINDINGS: No acute intracranial hemorrhage or extra-axial fluid collection. No hydrocephalus, mass, or herniation. No acute ischemic infarct. Unremarkable dural venous sinus attenuation. No acute osseous abnormality. The aerated spaces are clear. IMPRESSION: No acute intracranial process. Reviewed, dictated and finalized at location K.
--- NOTE | ~2021-12-30 | XR_ITS ---
EXAMINATION: XR chest 1V portable Exam Date/Time: 12/30/2021 17:30 CDT HISTORY: shortness of breath, increasing confusion Comparison: 10/10/2021. RESULT: Lines, tubes, and devices: None. Lungs and pleura: Clear. Cardiomediastinal silhouette: Stable cardiomediastinal silhouette. Other: No acute osseous or upper abdominal finding. IMPRESSION: No acute cardiopulmonary process. Reviewed, dictated and finalized at location K.
[2021-12-30 16:30] VITALS: BP 155/72; PULSE 83; RESP 18; TEMP 36.9; O2SAT 96
--- NOTE | 2021-12-30 16:45 | ED.AMS ---
HPI - Altered Mental Status General Chief Complaint: Altered Mental Status Stated Complaint: confusion Time Seen by Provider: 12/30/21 16:45 Source: family History of Present Illness HPI narrative: 61-year-old female with a history of diabetes mellitus, Velasco cirrhosis, portal vein thrombosis, lung cancer, C diff, CKD, hepatic encephalopathy on Xifaxan and lactulose presents to the ER with -- constipation in spite of lactulose and intermittent MiraLax -- altered mental status-- patient is confused MD complaint: altered mental status Onset (ago): day(s) Timing confirmed by: spouse Severity: moderate Consistency of symptoms: waxing and waning Context: history of similar presentation and liver disease Associated symptoms: denies other symptoms and loss of appetite Related Data Home Medications Medication Instructions Recorded Confirmed Eliquis 2.5 mg PO BID 12/24/19 12/30/21 Victoza 3-Lai 1.8 mg SUBCUT DAILY 12/24/19 12/30/21 metformin 1,000 mg PO BID 12/24/19 12/30/21 duloxetine 30 mg PO DAILY 08/11/21 12/30/21 pantoprazole 40 mg PO DAILY 08/11/21 12/30/21 torsemide 80 mg PO DAILY 08/11/21 12/30/21 Toujeo Max U-300 SoloStar 52 unit SUBCUT DAILY 10/10/21 12/30/21 metoprolol tartrate 25 mg PO BID 10/10/21 12/30/21 potassium chloride 20 meq PO QID 10/10/21 12/30/21 spironolactone 100 mg PO BID 10/10/21 12/30/21 Allergies Allergy/AdvReac Type Severity Reaction Status Date / Time Sulfa (Sulfonamide Allergy Mild ITCHING Verified 12/30/21 16:41 Antibiotics) sulfanilamide Allergy Unknown Other Verified 12/30/21 16:41 Review of Systems Review of Systems: All systems reviewed & are unremarkable except as noted in HPI and below Constitutional: Constitutional: Reports as per HPI, Reports no additional constitutional complaints and Reports fatigue Eyes: Eyes: Reports as per HPI and Reports no additional eye complaints ENT: Reports system reviewed and no additional complaints, except as documented and Reports as per HPI Cardiovascular: Cardiovascular: Reports as per HPI and Reports no additional cardiovascular complaints Respiratory: Respiratory: Reports as per HPI and Reports no additional respiratory complaints Gastrointestinal: Gastrointestinal: Reports as per HPI and Reports no additional gastrointestinal complaints Genitourinary: Genitourinary: Reports no additional female genitourinary complaints and Reports as per HPI Musculoskeletal: Musculoskeletal: Reports no additional musculoskeletal complaints and Reports as per HPI Integumentary/Breasts: Skin/Breast: Reports system reviewed and no additional complaints, except as docu and Reports as per HPI Neurologic: Reports system reviewed and no additional complaints, except as documented and Reports as per HPI Psychiatric: Psychiatric: Reports no additional psychiatric complaints and Reports as per HPI Endocrine: Endocrine: Reports no additional endocrine complaints and Reports as per HPI Hematologic/Lymphatic: Hematologic/Lymphatic: Reports no additional hematologic/lymphatic complaints and Reports as per HPI Allergic/Immunologic: Allergic/Immunologic: Reports no additional allergic/immunologic complaints and Reports as per HPI PMFSH Past Medical History Medical History C. difficile colitis (~12/2019) Cirrhosis Confusion Diabetes mellitus HTN (hypertension) Lung cancer Portal vein thrombosis Thrombocytopenia Surgical History Surgical History H/O sinus surgery History of endometrial ablation History of liver biopsy Family History Family History Mother Family history of malignant neoplasm of breast in first degree relative Father Family history of malignant neoplasm of esophagus Social History Social History Smoking packs per day:
--- NOTE | 2021-12-30 17:00 | ECG_ITS ---
Measurements Intervals [place] Rate: 81 P: 32 [place]: 148 QRS: 16 QRSD: 81 T: 18 QT: 372 QTc: 434 Interpretive Statements SINUS RHYTHM POSSIBLE LEFT ATRIAL ENLARGEMENT LOW QRS VOLTAGE IN PRECORDIAL LEADS BASELINE ARTIFACT- I, II, III, AVR, AVF, V6 BORDERLINE ECG Electronically Signed On 12-31-2021 8:00:58 CDT by Darrel Archer D.O.
--- NOTE | 2021-12-30 17:29 | PC.NURSE ---
pt incontinent of very large mat of soft stool. pericar
--- NOTE | 2021-12-30 17:29 | PC.NURSE ---
kendrick care provided. adult protector applied. ice chips provided.
[2021-12-30 17:59] LABS: Basophils Absolute Auto 0.03 K/mm3 (0.00-0.10); Basophils Percent Auto 0.4 % (0.0-1.0); Eosinophils Absolute Auto 0.46 K/mm3 (0.02-0.50); Eosinophils Percent Auto 6.5 % (1.0-6.0); Hematocrit 41.3 % (35.0-49.0); Hemoglobin 14.5 g/dL (12.0-15.0); Immature Granulocyte Absolute 0.04 K/mm3 (0.00-0.00); Immature Granulocyte Percent A 0.6 % (0.0-0.0); Immature Platelet Fraction Pct 4.8 % (1.0-7.0); Lymphocytes Absolute Auto 1.62 K/mm3 (1.10-4.50); Lymphocytes Percent Auto 22.8 % (18.0-42.0); Mean Corpuscular HGB Conc 35.1 g/dL (32.0-36.0); Mean Corpuscular Hemoglobin 32.7 pg (27.0-31.0); Mean Corpuscular Volume 93.2 fL (78.0-102.0); Mean Platelet Volume 11.7 fl (9.2-11.8); Monocytes Absolute Auto 0.83 K/mm3 (0.10-0.90); Monocytes Percent Auto 11.7 % (2.0-11.0); Neutrophils Absolute Auto 4.1 K/mm3 (1.7-7.2); Platelet Count Result 93 K/mm3 (150-420); Red Blood Count 4.43 M/mm3 (4.20-5.40); Red Cell Distribution Width 15.6 % (11.6-14.4); White Blood Count 7.1 K/mm3 (4.8-10.8)
[2021-12-30 18:08] LABS: INR 1.2; Prothrombin Time 12.8 Seconds (9.50-12.10)
[2021-12-30 18:19] LABS: Alanine Aminotransferase 27 U/L (14-59); Albumin Level 3.1 g/dL (3.4-5.0); Alkaline Phosphatase 120 U/L (46-116); Anion Gap 13 mmol/L (8-16); Aspartate Amino Transferase 23 U/L (15-37); Bilirubin,Total 4.1 mg/dL (0.00-1.00); Blood Urea Nitrogen 20 mg/dL (7-18); Calcium 10.2 mg/dL (8.5-10.1); Carbon Dioxide 21 mmol/L (21-32); Chloride 97 mmol/L (98-108); Estimated CRCL calculation 38 ml/min; Estimated Glomerular Filt Rate 30; Glucose 231 mg/dL (70-99); NT Pro B Type Natriuretic Pept 173 pg/mL (0-125); Osmolality Calculated 281 mOsm/kg (285-295); Potassium 4.5 mmol/L (3.5-5.1); Sodium 131 mmol/L (136-145); Total Protein 6.8 g/dL (6.4-8.2)
[2021-12-30 18:23] LABS: Ammonia 105 umol/L (11-32); Lipase 170 U/L (73-393)
[2021-12-30 19:06] VITALS: BP 157/64; PULSE 82; RESP 14; TEMP 36.4; O2SAT 100
== END 2021-12-30 19:15 | disposition home or self-care (01) ==
PROVIDERS: Emergency Provider Internal Medicine Critical Care Medicine; PCP Internal Medicine
DX: K75.81 Nonalcoholic steatohepatitis (NASH) (principal); E87.1 Hypo-osmolality and hyponatremia; I12.9 Hypertensive chronic kidney disease with stage 1 through stage 4 chronic kidney disease, or unspecified chronic kidney disease; N18.9 Chronic kidney disease, unspecified; E11.22 Type 2 diabetes mellitus with diabetic chronic kidney disease; K72.90 Hepatic failure, unspecified without coma; D69.6 Thrombocytopenia, unspecified; Z87.891 Personal history of nicotine dependence; Z79.01 Long term (current) use of anticoagulants; Z79.4 Long term (current) use of insulin; C34.90 Malignant neoplasm of unspecified part of unspecified bronchus or lung
CPT/HCPCS: 36415; 70450; 71045; 80053; 82140; 83690; 83880; 84484; 85025; 85055; 85610; 93005; 99284

== ENCOUNTER 2022-03-23 11:59 | Emergency (ER) | payer BC, SELFPAY ==
[2022-03-23] VITALS (36 sets, daily range): BP systolic 117–134; BP diastolic 45–61; PULSE 72–74; RESP 16–17; TEMP 36.5–36.7; O2SAT 91–100
[2022-03-23 12:12] LABS: Glucose Point of Care > 450 mg/dl (65-105)
--- NOTE | 2022-03-23 12:14 | ED.GENADULT ---
HPI - General Adult General Chief complaint: Recheck/Abnormal Lab/Rx Stated complaint: BLOOD SUGAR OVER 500 DR OBRIEN ADVISED TO GO TO ER Time Seen by Provider: 03/23/22 12:15 Source: patient and RN notes reviewed Mode of arrival: ambulatory Limitations: no limitations History of Present Illness HPI narrative: patient states that she was taken off of her metformin due to some liver problems. She is still on Victoza and Toujeo. She had blood work done today as part of a monthly blood work and she was found have a blood sugar greater than 500. She was sent to the emergency room for management. She does state that she has been very tired for the last several days. And she has also been very thirsty and urinating more. MD complaint: elevated blood sugar Onset (ago): hour(s) (1) Related Data Home Medications Medication Instructions Recorded Confirmed apixaban 2.5 mg tablet (Eliquis) 2.5 mg PO BID 12/24/19 03/23/22 liraglutide 0.6 mg/0.1 mL (18 mg/3 1.8 mg subcut DAILY 12/24/19 03/23/22 mL) subcutaneous pen injector (Victoza 3-Lai) duloxetine 30 mg capsule,delayed 30 mg PO DAILY 08/11/21 03/23/22 release pantoprazole 40 mg tablet,delayed 40 mg PO DAILY 08/11/21 03/23/22 release torsemide 20 mg tablet 80 mg PO DAILY 08/11/21 03/23/22 insulin glargine U-300 conc 300 52 unit subcut DAILY 10/10/21 03/23/22 unit/mL (3 mL) subcutaneous pen (Toujeo Max U-300 SoloStar) metoprolol tartrate 25 mg tablet 25 mg PO BID 10/10/21 03/23/22 potassium chloride 20 mEq 20 meq PO QID 10/10/21 03/23/22 tablet,extended release spironolactone 100 mg tablet 100 mg PO BID 10/10/21 03/23/22 Allergies Allergy/AdvReac Type Severity Reaction Status Date / Time Sulfa (Sulfonamide Allergy Mild ITCHING Verified 03/23/22 12:20 Antibiotics) sulfanilamide Allergy Unknown Other Verified 03/23/22 12:20 [facility] Past Medical History Medical History C. difficile colitis (~12/2019) Cirrhosis Confusion Diabetes mellitus HTN (hypertension) Lung cancer Portal vein thrombosis Thrombocytopenia Surgical History Surgical History H/O sinus surgery History of endometrial ablation History of liver biopsy Family History Family History Mother Family history of malignant neoplasm of breast in first degree relative Father Family history of malignant neoplasm of esophagus Social History Social History Smoking packs per day: 0.25 Smoking cigarettes per day: 5.0 Smoking status: Former smoker Tobacco type: cigarettes Second hand tobacco smoke exposure: Yes Smoking end date: 10/10/21 Alcohol intake: current Drinks per week: 1 Substance use: never Substance use type: does not use Gender identity (if verbalized by the patient): Female Spiritual care concerns: No Exam Const: General: healthy appearing, no acute distress and alert Nutritional Appearance: well nourished Orientation/consciousness: patient oriented x3 Limitations: no limitations HENMT: Head: normal to inspection Ears: external ears normal Face and sinus: normal facial exam Eyes: Conjunctivae: conjunctivae normal Pupils: Equal, round and reactive pupils present EOM: EOMs intact bilaterally Neck: Neck: normal visual inspection Chest: Chest palpation & inspection: normal inspection of the chest Resp: Effort & Inspection: normal respiratory effort Auscultation: clear to auscultation bilaterally Cardio: Rate: regular rate Rhythm: regular rhythm GI: GI Palp: Yes Soft to palpation and No Tenderness to palpation present (GI) Auscultation: normal bowel sounds Back/Spine/Pelvis: Cervical Spine: cervical ROM normal Thoracic/Lumbar Spine: thoraco-lumbar ROM normal Skin: General skin exam: normal color Rashes: no rashes Wounds
[2022-03-23] MEDS: LACTATED RINGERS 500 ML 999 ML IV CONT (12:28)
[2022-03-23] MEDS: INSULIN HUMAN REGULAR (*BKC) 100 UNITS/ML 10 UNITS IV PUSH (12:32)
[2022-03-23] MEDS: INSULIN REG 100 UNITS/100 ML 100 UNITS/100 ML BAG IV CONT (12:36)
[2022-03-23 12:45] LABS: Anion Gap 7 mmol/L (8-16); Blood Urea Nitrogen 11 mg/dL (7-18); Calcium 8.8 mg/dL (8.5-10.1); Carbon Dioxide 27 mmol/L (21-32); Chloride 100 mmol/L (98-108); Estimated Glomerular Filt Rate 41; Potassium 4.3 mmol/L (3.5-5.1); Sodium 134 mmol/L (136-145)
[2022-03-23 12:46] LABS: Glucose 519 mg/dL (70-99); Osmolality Calculated 300 mOsm/kg (285-295)
[2022-03-23 13:08] LABS: Glucose Point of Care > 450 mg/dl (65-105)
[2022-03-23 13:47] LABS: Glucose Point of Care > 450 mg/dl (65-105)
[2022-03-23 15:13] LABS: Glucose Point of Care 414 mg/dl (65-105)
[2022-03-23] MEDS: LACTATED RINGERS 1,000 ML 999 ML IV CONT (15:16)
--- NOTE | 2022-03-23 15:23 | PC.NURSE ---
glucose of 414, no change to iv insulin at this time.
--- NOTE | 2022-03-23 16:23 | PC.NURSE ---
blood glucose 327 at this time, no change to insulin drip
--- NOTE | 2022-03-23 16:55 | PC.NURSE ---
glucose is 318 at this time. no change to insulin drip per erp.
--- NOTE | 2022-03-23 17:30 | PC.NURSE ---
glucose is 296 at this time. no changes to insulin drip per erp.
--- NOTE | 2022-03-23 18:09 | PC.NURSE ---
blood glucose is 274 at this time. no changes in insulin drip per erp.
--- NOTE | 2022-03-23 18:55 | PC.NURSE ---
patient's glucose is 237. insulin drip stopped per erp.
[2022-04-03 13:33] LABS: Glucose Point of Care 318 mg/dl (65-105)
[2022-04-03 13:34] LABS: Glucose Point of Care 274 mg/dl (65-105)
[2022-04-03 13:34] LABS: Glucose Point of Care 237 mg/dl (65-105)
[2022-04-03 13:35] LABS: Glucose Point of Care 327 mg/dl (65-105)
[2022-04-03 13:35] LABS: Glucose Point of Care 306 mg/dl (65-105)
[2022-04-03 13:49] LABS: Glucose Point of Care 296 mg/dl (65-105)
[2022-04-03 13:49] LABS: Glucose Point of Care > 450 mg/dl (65-105)
== END 2022-03-23 19:24 | disposition home or self-care (01) ==
PROVIDERS: Emergency Provider Emergency Medicine; PCP Internal Medicine
DX: E11.65 Type 2 diabetes mellitus with hyperglycemia (principal)
CPT/HCPCS: 36415; 80048; 82948; 96365; 96366; 99284; J1815; J7120

== ENCOUNTER 2022-07-25 12:13 | Emergency (ER) | payer BC, SELFPAY ==
--- NOTE | ~2022-07-25 | CT_ITS ---
EXAMINATION: CT abdomen pelvis wo con DATE: 07/25/2022 14:50 INDICATION: Liver failure. TECHNIQUE: Computed tomography (CT) of the abdomen and pelvis was performed without intravenous contr ast. Automated exposure control and iterative reconstruction technique were employed. The dose-length product was 1455.63 mGy-cm. COMPARISON: CT abdomen and pelvis 10/10/2021, 12/24/2019 FINDINGS: The visualized portions of the lung bases demonstrate mild atelectasis versus scarring in p araspinal right lower lobe. Partially visualized is a chronic right lower lobe nodule measuring at le ast 9 mm, likely benign. No pleural effusion. The heart size is normal. No pericardial effusion. The liver demonstrates surface nodularity, consistent with cirrhosis. There is a 4.9 cm cyst in the liver . There is mild splenomegaly. The gallbladder, pancreas, adrenal glands, and kidneys are normal. Ther e are no dilated loops of bowel. The appendix is not visualized. There is a splenorenal portacaval sh unt. There are no pathologically enlarged lymph nodes. There is no free intraperitoneal fluid. There is mild lumbar spondylosis. IMPRESSION: 1. Cirrhosis of the liver with portal venous hypertension. Reviewed, dictated and finalized at location A. MOLDER
--- NOTE | ~2022-07-25 | CT_ITS ---
EXAMINATION: CT brain wo con DATE: 07/25/2022 14:51 INDICATION: Confusion. TECHNIQUE: Computed tomography (CT) of the head was performed without intravenous contrast. The mA wa s adjusted according to patient size. Iterative reconstruction technique was employed. The dose-lengt h product was 605.33 mGy-cm. COMPARISON: Head CT 12/30/2021 FINDINGS: There is no intracranial hemorrhage, acute infarction, or abnormal intracranial mass lesion . The ventricles are normal in size. There are likely changes of ocular lens replacement surgeries. T here is mild mucosal thickening in the paranasal sinuses. The mastoid air cells are normal. IMPRESSION: 1. Normal brain. Reviewed, dictated and finalized at location A. PLUMBER IMPRESSION: 1. Normal brain.
[2022-07-25 13:43] VITALS: BP 134/58; PULSE 67; RESP 18; TEMP 36.7; O2SAT 98
--- NOTE | 2022-07-25 14:03 | ECG_ITS ---
Measurements Intervals [place] Rate: 65 P: 28 [place]: 145 QRS: 41 QRSD: 94 T: 42 QT: 434 QTc: 452 Interpretive Statements SINUS RHYTHM NONSPECIFIC T-WAVE ABNORMALITY COMPARED TO ECG 12/30/2021 17:52:19 T-WAVE ABNORMALITY NOW PRESENT Electronically Signed On 07-25-2022 15:59:55 [employer] TE[employer]IC[employer] by Terrie Espinoza M.D.
[2022-07-25 14:36] LABS: Hematocrit 40.2 % (35.0-49.0); Hemoglobin 13.9 g/dL (12.0-15.0); Mean Corpuscular HGB Conc 34.6 g/dL (32.0-36.0); Mean Corpuscular Hemoglobin 29.7 pg (27.0-31.0); Mean Corpuscular Volume 85.9 fL (78.0-102.0); Platelet Count Result 69 K/mm3 (150-420); Red Blood Count 4.68 M/mm3 (4.20-5.40); Red Cell Distribution Width 15.2 % (11.6-14.4); White Blood Count 5.4 K/mm3 (4.8-10.8)
[2022-07-25 14:37] LABS: Immature Platelet Fraction Pct 4.6 % (1.0-7.0); Mean Platelet Volume 11.4 fl (9.2-11.8)
[2022-07-25 14:52] LABS: Alanine Aminotransferase 35 U/L (14-59); Alkaline Phosphatase 99 U/L (46-116); Ammonia 61 umol/L (11-32); Anion Gap 7 mmol/L (8-16); Aspartate Amino Transferase 34 U/L (15-37); Bilirubin,Total 3.1 mg/dL (0.00-1.00); Blood Urea Nitrogen 38 mg/dL (7-18); Calcium 9.5 mg/dL (8.5-10.1); Carbon Dioxide 30 mmol/L (21-32); Chloride 95 mmol/L (98-108); Estimated Glomerular Filt Rate 19; Glucose 187 mg/dL (70-99); Osmolality Calculated 288 mOsm/kg (285-295); Potassium 3.3 mmol/L (3.5-5.1); Sodium 132 mmol/L (136-145); Total Protein 6.7 g/dL (6.4-8.2); Troponin I 23.4 ng/L (0.00-60.4)
[2022-07-25 14:53] LABS: Ethanol < 3 mg/dL (0-6)
[2022-07-25 14:55] LABS: Band Neutrophils Percent 0 % (0-6); Basophils Percent Manual 0 % (0-1); Eosinophils Absolute Manual 0.21 K/mm3 (0.02-0.5); Eosinophils Percent Manual 4 % (1-6); Lymphocytes Absolute Manual 1.45 K/mm3 (1.1-4.5); Lymphocytes Percent Manual 27 % (18-44); Monocytes Absolute Manual 0.91 K/mm3 (0.1-0.90); Monocytes Percent Manual 17 % (3-9); Neutrophils Percent Manual 52 % (46-73); Platelet Estimate Adequate (Adequate); Total Cells Counted 100
[2022-07-25 16:10] VITALS: BP 133/57; PULSE 66; RESP 20; O2SAT 97
[2022-07-25 16:28] LABS: Amphetamine Screen Urine Negative (Negative); Barbiturate Screen Urine Negative (Negative); Benzodiazepines Screen Urine Negative (Negative); Cannabinoid Screen Urine Negative (Negative); Cocaine Screen Urine Negative (Negative); Methadone Screen Urine Negative (Negative); Opiate Screen Urine Negative (Negative); Phencyclidine Screen Urine Negative (Negative)
[2022-07-25] MEDS: SODIUM CHLORIDE 0.9% IV 1,000 ML 999 ML IV CONT ×2 (16:30→17:13)
[2022-07-25] MEDS: LACTULOSE 20 GM/30 ML UDC PO (17:13)
[2022-07-25 18:09] LABS: Ammonia 54 umol/L (11-32)
[2022-07-25 18:55] VITALS: BP 148/65; PULSE 65; RESP 20; TEMP 36.7; O2SAT 94
--- NOTE | 2022-07-25 19:15 | PC.NURSE ---
Report to TYRA clarke
--- NOTE | 2022-07-25 19:30 | ED.GENADULT ---
HPI - General Adult General Chief complaint: Recheck/Abnormal Lab/Rx Stated complaint: sent from drs office Time Seen by Provider: 07/25/22 12:15 Source: patient, family and RN notes reviewed Mode of arrival: wheelchair Limitations: no limitations History of Present Illness complaint: known liver failure pt with mild episodes of AMS. pt has been using incr Onset (ago): day(s) (2) Location: head and abdomen Radiation: non-radiation Severity: mild Quality: other (no acute pain) Pain Consistency: other (none) Relieving factors: none Exacerbating factors: none Associated symptoms: confusion and other (mild diarrhea ) Related Data Home Medications Medication Instructions Recorded Confirmed apixaban 2.5 mg tablet (Eliquis) 2.5 mg PO BID 12/24/19 07/25/22 liraglutide 0.6 mg/0.1 mL (18 mg/3 1.8 mg subcut DAILY 12/24/19 07/25/22 mL) subcutaneous pen injector (BuzzTableza 3-Lai) duloxetine 30 mg capsule,delayed 30 mg PO DAILY 08/11/21 07/25/22 release pantoprazole 40 mg tablet,delayed 40 mg PO DAILY 08/11/21 07/25/22 release torsemide 20 mg tablet 80 mg PO DAILY 08/11/21 07/25/22 insulin glargine U-300 conc 300 52 unit subcut DAILY 10/10/21 07/25/22 unit/mL (3 mL) subcutaneous pen (Toujeo Max U-300 SoloStar) metoprolol tartrate 25 mg tablet 25 mg PO BID 10/10/21 07/25/22 potassium chloride 20 mEq 20 meq PO QID 10/10/21 07/25/22 tablet,extended release spironolactone 100 mg tablet 100 mg PO BID 10/10/21 07/25/22 Allergies Allergy/AdvReac Type Severity Reaction Status Date / Time Sulfa (Sulfonamide Allergy Mild ITCHING Verified 03/23/22 12:20 Antibiotics) sulfanilamide Allergy Unknown Other Verified 03/23/22 12:20 Review of Systems Review of Systems: All systems reviewed & are unremarkable except as noted in HPI and below Constitutional: Constitutional: Reports no additional constitutional complaints Eyes: Eyes: Reports no additional eye complaints ENT: Reports system reviewed and no additional complaints, except as documented Cardiovascular: Cardiovascular: Reports no additional cardiovascular complaints Respiratory: Respiratory: Reports no additional respiratory complaints Gastrointestinal: Gastrointestinal: Reports no additional gastrointestinal complaints Genitourinary: Genitourinary: Reports no additional female genitourinary complaints Musculoskeletal: Musculoskeletal: Reports no additional musculoskeletal complaints Integumentary/Breasts: Skin/Breast: Reports system reviewed and no additional complaints, except as docu Neurologic: Reports system reviewed and no additional complaints, except as documented Psychiatric: Psychiatric: Reports no additional psychiatric complaints Endocrine: Endocrine: Reports no additional endocrine complaints Hematologic/Lymphatic: Hematologic/Lymphatic: Reports no additional hematologic/lymphatic complaints Allergic/Immunologic: Allergic/Immunologic: Reports no additional allergic/immunologic complaints PMFSH Past Medical History Medical History C. difficile colitis (~12/2019) Cirrhosis Confusion Diabetes mellitus HTN (hypertension) Hyperammonemia Liver failure Lung cancer Portal vein thrombosis Thrombocytopenia Surgical History Surgical History H/O sinus surgery History of endometrial ablation History of liver biopsy Family History Family History Mother Family history of malignant neoplasm of breast in first degree relative Father Family history of malignant neoplasm of esophagus Social History Social History Smoking packs per day: 0.25 Smoking cigarettes per day: 5.0 Smoking status: Former smoker Tobacco type: cigarettes Second hand tobacco smoke exposure: Yes Smoking end date: 10/10/21 Alcohol i
[2022-07-25 19:45] VITALS: BP 127/66; PULSE 68; RESP 16; TEMP 36.7; O2SAT 100
== END 2022-07-25 19:45 | disposition home or self-care (01) ==
PROVIDERS: Emergency Provider Emergency Medicine; PCP Internal Medicine
DX: K74.60 Unspecified cirrhosis of liver (principal); E72.20 Disorder of urea cycle metabolism, unspecified; I10 Essential (primary) hypertension; E11.9 Type 2 diabetes mellitus without complications; Z79.01 Long term (current) use of anticoagulants; Z85.118 Personal history of other malignant neoplasm of bronchus and lung; Z79.4 Long term (current) use of insulin; Z87.891 Personal history of nicotine dependence
CPT/HCPCS: 36415; 70450; 74176; 80053; 80307; 82140; 84484; 85025; 85055; 93005; 96360; 96361; 99284; A9270; J7030

== ENCOUNTER 2022-08-13 17:18 | Outpatient (CLI) | payer BC, SELFPAY ==
[2022-08-13 17:44] LABS: Hematocrit 28.7 % (35.0-49.0); Hemoglobin 9.5 g/dL (12.0-15.0); Mean Corpuscular HGB Conc 33.1 g/dL (32.0-36.0); Mean Corpuscular Hemoglobin 30.7 pg (27.0-31.0); Mean Corpuscular Volume 92.9 fL (78.0-102.0); Mean Platelet Volume 11.3 fl (9.2-11.8); Platelet Count Result 45 K/mm3 (150-420); Red Blood Count 3.09 M/mm3 (4.20-5.40); Red Cell Distribution Width 15.5 % (11.6-14.4); White Blood Count 3.4 K/mm3 (4.8-10.8)
[2022-08-13 17:53] LABS: INR 1.2; Prothrombin Time 12.9 Seconds (9.50-12.10)
[2022-08-13 18:08] LABS: Alanine Aminotransferase 35 U/L (14-59); Albumin Level 3.2 g/dL (3.4-5.0); Alkaline Phosphatase 80 U/L (46-116); Ammonia 70 umol/L (11-32); Anion Gap 3 mmol/L (8-16); Aspartate Amino Transferase 36 U/L (15-37); Bilirubin,Total 1.4 mg/dL (0.00-1.00); Blood Urea Nitrogen 17 mg/dL (7-18); Calcium 8.4 mg/dL (8.5-10.1); Carbon Dioxide 29 mmol/L (21-32); Chloride 106 mmol/L (98-108); Estimated Glomerular Filt Rate > 60; Glucose 103 mg/dL (70-99); Osmolality Calculated 287 mOsm/kg (285-295); Potassium 4.1 mmol/L (3.5-5.1); Sodium 138 mmol/L (136-145); Total Protein 5.9 g/dL (6.4-8.2)
[2022-08-13 18:16] LABS: Band Neutrophils Percent 0 % (0-6); Basophils Percent Manual 0 % (0-1); Eosinophils Absolute Manual 0.03 K/mm3 (0.02-0.5); Eosinophils Percent Manual 1 % (1-6); Immature Platelet Fraction Pct 4.1 % (1.0-7.0); Lymphocytes Absolute Manual 0.78 K/mm3 (1.1-4.5); Lymphocytes Percent Manual 23 % (18-44); Monocytes Absolute Manual 0.27 K/mm3 (0.1-0.90); Monocytes Percent Manual 8 % (3-9); Neutrophils Absolute Manual 2.31 K/mm3 (1.7-7.2); Neutrophils Percent Manual 68 % (46-73); Total Cells Counted 100
[2022-08-13 18:17] LABS: Platelet Estimate Decreased (Adequate)
== END 2022-08-13 17:19 | disposition home or self-care (01) ==
LOC: CHSLAB 17:20
PROVIDERS: PCP Internal Medicine; Visit Provider Internal Medicine
DX: K74.69 Other cirrhosis of liver (principal)
CPT/HCPCS: 36415; 80053; 82140; 85025; 85055; 85610

== ENCOUNTER 2022-09-29 13:11 | Outpatient (CLI) | payer OTHER, SELFPAY ==
[2022-09-29 13:35] LABS: Hemoglobin 8.2 g/dL (12.0-15.0); Immature Platelet Fraction Pct 4.5 % (1.0-7.0); Mean Corpuscular HGB Conc 31.5 g/dL (32.0-36.0); Mean Corpuscular Hemoglobin 28.7 pg (27.0-31.0); Mean Corpuscular Volume 90.9 fL (78.0-102.0); Mean Platelet Volume 12.3 fl (9.2-11.8); Platelet Count Result 57 K/mm3 (150-420); Red Blood Count 2.86 M/mm3 (4.20-5.40); Red Cell Distribution Width 15.4 % (11.6-14.4); White Blood Count 3.9 K/mm3 (4.8-10.8)
[2022-09-29 13:46] LABS: INR 1.2; Prothrombin Time 13.2 Seconds (9.50-12.10)
[2022-09-29 13:52] LABS: Total Cells Counted 100
[2022-09-29 13:53] LABS: Band Neutrophils Percent 0 % (0-6); Basophils Absolute Manual 0.03 K/mm3 (0-0.1); Basophils Percent Manual 1 % (0-1); Eosinophils Absolute Manual 0.27 K/mm3 (0.02-0.5); Eosinophils Percent Manual 7 % (1-6); Lymphocytes Absolute Manual 0.81 K/mm3 (1.1-4.5); Lymphocytes Percent Manual 21 % (18-44); Monocytes Absolute Manual 0.23 K/mm3 (0.1-0.90); Monocytes Percent Manual 6 % (3-9); Neutrophils Absolute Manual 2.53 K/mm3 (1.7-7.2); Neutrophils Percent Manual 65 % (46-73); Platelet Estimate Decreased (Adequate)
[2022-09-29 14:07] LABS: Alanine Aminotransferase 25 U/L (14-59); Albumin Level 2.8 g/dL (3.4-5.0); Alkaline Phosphatase 74 U/L (46-116); Anion Gap 6 mmol/L (8-16); Aspartate Amino Transferase 30 U/L (15-37); Bilirubin Direct 0.6 mg/dL (0-0.2); Bilirubin,Total 1.5 mg/dL (0.00-1.00); Blood Urea Nitrogen 43 mg/dL (7-18); Calcium 7.9 mg/dL (8.5-10.1); Carbon Dioxide 29 mmol/L (21-32); Chloride 102 mmol/L (98-108); Estimated Glomerular Filt Rate 19; Glucose 130 mg/dL (70-99); Osmolality Calculated 296 mOsm/kg (285-295); Potassium 4.6 mmol/L (3.5-5.1); Sodium 137 mmol/L (136-145); Total Protein 5.6 g/dL (6.4-8.2)
== END 2022-09-29 13:12 | disposition home or self-care (01) ==
LOC: CHSLAB 13:16
PROVIDERS: PCP Internal Medicine
DX: K74.60 Unspecified cirrhosis of liver (principal)
CPT/HCPCS: 36415; 80053; 82248; 85025; 85055; 85610

== ENCOUNTER 2023-01-26 18:55 | Emergency (ER) | payer OTHER, SELFPAY ==
[2023-01-26] VITALS (13 sets, daily range): BP systolic 104–118; BP diastolic 48–66; PULSE 66–77; RESP 16–20; TEMP 36.6–37.2; O2SAT 96–98
--- NOTE | ~2023-01-26 | CT_ITS ---
EXAMINATION: CT thoracic spine wo con DATE: 01/26/2023 20:05 INDICATION: Status post fall. Back pain. TECHNIQUE: Computed tomography (CT) of the thoracic spine was performed without intravenous contrast. The dose-length product was 1488.75 mGy-cm. Automated exposure control and iterative reconstruction technique were employed. COMPARISON: None FINDINGS: There is a wedge compression fracture of T1, likely acute/subacute. There is mild dextrosco liosis. There is a mild wedge compression deformity of T3, likely chronic. There is a new acute/subac rachel inferior endplate compression fracture of T9. There is mildly accentuated thoracic kyphosis. Visu alized lung parenchyma is unremarkable. IMPRESSION: 1. Anterior wedge compression fracture of T1 and inferior endplate compression fracture of T9, likely both acute/subacute. Consider correlation with MRI. 2: Mild wedge compression fracture of T3, likely chronic. Reviewed, dictated and finalized at location A.
--- NOTE | ~2023-01-26 | CT_ITS ---
EXAMINATION: CT BRAIN W/O DATE: 01/26/2023 20:04 INDICATION: Status post fall. Altered mental status. TECHNIQUE: Computed tomography (CT) of the head was performed without intravenous contrast. The dose- length product was 605.33 mGy-cm. Automated exposure control and iterative reconstruction technique w ere employed. COMPARISON: No prior studies for comparison. FINDINGS: Normal brain parenchymal volume for age. Normal gonzalez-white differentiation. No acute intrac ranial hemorrhage, infarction, mass or mass effect. No ventriculomegaly or midline shift. Midline sagittal images demonstrate a normal corpus callosum, c raniovertebral junction and sella turcica. Basilar cisterns are patent. Paranasal sinuses and mastoids are pneumatized. No depressed skull fractures. IMPRESSION: 1. No acute intracranial abnormality. Reviewed, dictated and finalized at location A.
--- NOTE | ~2023-01-26 | XR_ITS ---
XR shoulder RT min 2V 01/26/2023 21:01 Indication: Right shoulder pain after fall Procedure: 4 views right shoulder Comparison: No prior studies for comparison. Findings: Comminuted right humeral neck fracture with dorsal angulation. There are degenerative boyd es of the acromioclavicular joint. Impression: 1: Comminuted right humeral neck fracture with dorsal angulation. Reviewed, dictated and finalized at location A. Impression: 1: Comminuted right humeral neck fracture with dorsal angulation.
--- NOTE | ~2023-01-26 | XR_ITS ---
EXAMINATION: XR chest 1V portable 01/26/2023 20:05 INDICATION: Weakness PROCEDURE: AP portable chest COMPARISON: Comparison to multiple prior studies sequentially, with oldest reviewed study dated 11/20. FINDINGS: The lungs are clear. The cardiomediastinal silhouette is within normal limits. There are no pleural effusions. There is no pneumothorax suspected. IMPRESSION: 1: NO ACUTE CARDIOPULMONARY DISEASE. Reviewed, dictated and finalized at location A.
--- NOTE | ~2023-01-26 | CT_ITS ---
EXAMINATION: CT cervical spine wo con DATE: 01/26/2023 20:04 INDICATION: Status post fall. Neck pain. TECHNIQUE: Computed tomography (CT) of the cervical spine was performed without intravenous contrast. The dose-length product was 493 mGy-cm. Automated exposure control and iterative reconstruction tech nique were employed. COMPARISON: None FINDINGS: There is a wedge compression fracture of T1 which is likely acute/subacute. The fracture li ne is identified along the inferior endplate of T1 on the left. There is mild disc narrowing at C5-6 and C7-T1. No evidence for perched facet. Craniovertebral junction is normal. Odontoid process is nor mal. There is mild multilevel uncinate hypertrophy. No paraspinal soft tissue abnormality. IMPRESSION: 1. Anterior wedge compression fracture of T1 which is likely acute/subacute. Consider correlation wit h MRI. 2: Mild cervical spondylosis. Reviewed, dictated and finalized at location A. IMPRESSION: 1. Anterior wedge compression fracture of T1 which is likely acute/subacute. Co nsider correlation with MRI. 2: Mild cervical spondylosis.
--- NOTE | 2023-01-26 19:28 | ECG_ITS ---
Measurements Intervals [place] Rate: 68 P: 25 MS: 168 QRS: 31 QRSD: 151 T: -16 QT: 455 QTc: 485 Interpretive Statements SINUS RHYTHM RIGHT BUNDLE BRANCH BLOCK ABNORMAL ECG COMPARED TO ECG 07/25/2022 14:52:59 INTRAVENTRICULAR CONDUCTION DELAY NOW PRESENT Electronically Signed On 01-27-2023 9:16:43 CDT by Swapnil Toledo M.D.
--- NOTE | 2023-01-26 20:31 | ED.GENADULT ---
HPI - General Adult General Chief complaint: Unspecified Stated complaint: fall x 2 History of Present Illness HPI narrative: This is a 62-year-old female with history of liver failure on the transplant list at [facility] presenting with weakness and 2 falls today. Earlier in the week she had become more confused which her and her associated with increased ammonia levels. They had increased her lactulose. she has been having multiple episodes of diarrhea per day. She was doing well until today when she syncopized in the kitchen. She landed on her right shoulder. She was able to get up and go about her daily activities but then had another fall in her bedroom prompted her to bring her to the emergency department for evaluation. At this time the patient is complaining of pain to her right shoulder as well as to her back and the upper thoracic area. She is also globally weak. No fever chills chest pain difficulty breathing abdominal pain or urinary symptoms. Related Data Home Medications Medication Instructions Recorded Confirmed apixaban 2.5 mg tablet (Eliquis) 2.5 mg PO BID 12/24/19 01/26/23 liraglutide 0.6 mg/0.1 mL (18 mg/3 1.8 mg subcut DAILY 12/24/19 01/26/23 mL) subcutaneous pen injector ([employer] 3-Lai) duloxetine 30 mg capsule,delayed 30 mg PO DAILY 08/11/21 01/26/23 release pantoprazole 40 mg tablet,delayed 40 mg PO DAILY 08/11/21 01/26/23 release torsemide 20 mg tablet 80 mg PO DAILY 08/11/21 01/26/23 insulin glargine U-300 conc 300 52 unit subcut DAILY 10/10/21 01/26/23 unit/mL (3 mL) subcutaneous pen (Toujeo Max U-300 SoloStar) metoprolol tartrate 25 mg tablet 25 mg PO BID 10/10/21 01/26/23 potassium chloride 20 mEq 20 meq PO QID 10/10/21 01/26/23 tablet,extended release spironolactone 100 mg tablet 100 mg PO BID 10/10/21 01/26/23 Allergies Allergy/AdvReac Type Severity Reaction Status Date / Time Sulfa (Sulfonamide Allergy Mild ITCHING Verified 03/23/22 12:20 Antibiotics) sulfanilamide Allergy Unknown Other Verified 03/23/22 12:20 [facility] Past Medical History Medical History C. difficile colitis (~12/2019) Cirrhosis Confusion Diabetes mellitus HTN (hypertension) Hyperammonemia Liver failure Lung cancer Portal vein thrombosis Thrombocytopenia Surgical History Surgical History H/O sinus surgery History of endometrial ablation History of liver biopsy Family History Family History Mother Family history of malignant neoplasm of breast in first degree relative Father Family history of malignant neoplasm of esophagus Mother Cerebrovascular accident Sibling Hypertension Congestive heart failure Social History Social History Smoking packs per day: 0.25 Smoking cigarettes per day: 5.0 Smoking status: Former smoker Tobacco type: cigarettes Second hand tobacco smoke exposure: Yes Smoking end date: 10/10/21 Alcohol intake: current Drinks per week: 1 Substance use: never Substance use type: does not use Gender identity (if verbalized by the patient): Female Spiritual care concerns: No Exam Narrative: APPEARANCE: No apparent distress. Head: atraumatic. EYES: EOMI, NOSE: Atraumatic NECK: Trachea midline RESPIRATORY: No increased rate of breathing , clear to auscultation CARDIOVASCULAR: RRR, no peripheral edema ABDOMINAL: Non-distended, soft no guarding rebound MUSCULOSKELETAl: Focal exam of the right upper extremity revealedBruising over the right upper arm. Pulses are +2, Radian ulnar and median nerve distributions are functionally intact. Sensation light touch is intact. Patient has midline thoracic tenderness in the T1-T2 area. NEURO: Alert. Cranial nerves 2-12 grossly intact. Sensation light touch, motor f
[2023-01-26 20:38] LABS: Basophils Absolute Auto 0.02 K/mm3 (0.00-0.10); Basophils Percent Auto 0.3 % (0.0-1.0); Eosinophils Absolute Auto 0.24 K/mm3 (0.02-0.50); Eosinophils Percent Auto 3.2 % (1.0-6.0); Hematocrit 33.5 % (35.0-49.0); Hemoglobin 11.5 g/dL (12.0-15.0); Immature Granulocyte Absolute 0.04 K/mm3 (0.00-0.00); Immature Granulocyte Percent A 0.5 % (0.0-0.0); Immature Platelet Fraction Pct 3.2 % (1.0-7.0); Lymphocytes Absolute Auto 0.73 K/mm3 (1.10-4.50); Lymphocytes Percent Auto 9.6 % (18.0-42.0); Mean Corpuscular HGB Conc 34.3 g/dL (32.0-36.0); Mean Corpuscular Hemoglobin 29.4 pg (27.0-31.0); Mean Corpuscular Volume 85.7 fL (78.0-102.0); Mean Platelet Volume 12.6 fl (9.2-11.8); Monocytes Percent Auto 6.6 % (2.0-11.0); Neutrophils Percent Auto 79.8 % (50.0-70.0); Platelet Count Result 64 K/mm3 (150-420); Red Blood Count 3.91 M/mm3 (4.20-5.40); Red Cell Distribution Width 16.9 % (11.6-14.4); White Blood Count 7.6 K/mm3 (4.8-10.8)
[2023-01-26 20:51] LABS: INR 1.2; Partial Thromboplastin Time 29.1 SEC (23.90-30.70); Prothrombin Time 12.9 Seconds (9.50-12.10)
[2023-01-26 20:55] LABS: Lactic Acid Reflex 1.9 mmol/L (0.4-2.0)
[2023-01-26 21:00] LABS: Alanine Aminotransferase 43 U/L (14-59); Albumin Level 2.6 g/dL (3.4-5.0); Alkaline Phosphatase 96 U/L (46-116); Ammonia 64 umol/L (11-32); Anion Gap 7 mmol/L (8-16); Aspartate Amino Transferase 58 U/L (15-37); Bilirubin,Total 4.1 mg/dL (0.00-1.00); Blood Urea Nitrogen 67 mg/dL (7-18); Calcium 8.4 mg/dL (8.5-10.1); Carbon Dioxide 33 mmol/L (21-32); Chloride 92 mmol/L (98-108); Creatine Kinase 358 U/L (26-192); Estimated CRCL calculation 36 ml/min; Estimated Glomerular Filt Rate 26; Glucose 208 mg/dL (70-99); Lipase 171 U/L (16-77); Magnesium 1.8 mg/dL (1.8-2.4); NT Pro B Type Natriuretic Pept 345 pg/mL (0-125); Osmolality Calculated 299 mOsm/kg (285-295); Potassium 3.1 mmol/L (3.5-5.1); Sodium 132 mmol/L (136-145); Total Protein 6.2 g/dL (6.4-8.2); Troponin I 23.6 ng/L (0.00-60.4)
[2023-01-26] MEDS: SODIUM CHLORIDE 0.9% IV 1,000 ML 999 ML IV CONT (21:30)
[2023-01-26] MEDS: POTASSIUM CHLORIDE 20 MEQ PACKET (FOR LIQUID) 40 MEQ FEED TUBE (21:30)
[2023-01-26 21:52] LABS: Appearance Urine Clear (Clear); Bilirubin Urine Negative (Negative); Blood Urine Negative (Negative); Color Urine Light Yellow (Yellow); Glucose Urine UA Negative (Negative); Ketones Urine Negative (Negative); Leukocyte Esterase Ur Negative LEU/UL (Negative); Nitrate Urine Negative (Negative); Protein Urine Negative (Negative); Urobilinogen Urine 0.2 mg/dL (0.2-1.0)
[2023-01-26 21:54] LABS: Add Urine Microscopic? NO
[2023-01-26] MEDS: oxyCODONE HCL (*CRX) 5 MG TAB IR PO (22:06)
--- NOTE | 2023-01-27 06:07 | PC.NURSE ---
report to kyrie
--- NOTE | 2023-02-21 23:38 | PC.NURSE ---
01/26/23 2230 IV fluids complete, 1000ml infused
== END 2023-01-26 23:24 | disposition short-term general hospital (02) ==
PROVIDERS: Emergency Provider Emergency Medicine; PCP Internal Medicine
DX: K74.60 Unspecified cirrhosis of liver (principal); E87.6 Hypokalemia; S42.291A Other displaced fracture of upper end of right humerus, initial encounter for closed fracture; S22.010A Wedge compression fracture of first thoracic vertebra, initial encounter for closed fracture; S22.070A Wedge compression fracture of T9-T10 vertebra, initial encounter for closed fracture; E11.9 Type 2 diabetes mellitus without complications; I10 Essential (primary) hypertension; Z85.118 Personal history of other malignant neoplasm of bronchus and lung; Z79.01 Long term (current) use of anticoagulants; Z79.4 Long term (current) use of insulin; Z87.891 Personal history of nicotine dependence; W19.XXXA Unspecified fall, initial encounter
CPT/HCPCS: 36415; 70450; 71045; 72125; 72128; 73030; 80053; 81003; 82140; 82550; 83605; 83690; 83735; 83880; 84484; 85025; 85055; 85610; 85730; 93005; 96360; 99285; A4565; A9270; J7030

== ENCOUNTER 2023-04-17 13:45 | Outpatient (RCR) | payer OTHER, SELFPAY ==
[2023-04-17 13:55] VITALS: BP_SYST 70
--- NOTE | 2023-04-17 14:42 | OPREHPOC ---
Outpatient Therapy Plan of Care This is a Multidisciplinary Plan of Care that may contain components documented by all disciplines (PT, OT, and ST.) PT Problem 1 PT Problem #1 Knowledge Deficit PT Goal 1 Goal 1. independent and compliant with HEP to improve shoulder mobility and tolerance for continued skilled PT and exercises Target Visit 6 PT Problem 2 PT Problem #2 Pain PT Goal 1 Goal 1. reduce pain at worst in the R shoulder to 3/10 or less to improve functional activity performance and quality of life. Target Visit 18 PT Problem 3 PT Problem #3 Impaired Range of Motion PT Goal 1 Goal 1. R shoulder passive flexion to 140 degrees or better 2. R shoulder active flexion to 135 degrees or better 3. R shoulder active ER to 60 degrees or better in scapular plane 4. R shoulder active IR to 60 degrees or better in scapular plane Target Visit 12 PT Goal 2 Goal 1. R shoulder active flexion to 145 degrees or better 2. R shoulder active ER to 60 degrees in 90 degrees abduction 3. R shoulder active IR to 60 degrees in 90 degrees abduction 4. bilateral cervical sidebending active rom to 30 degrees or better 5. bilateral cervical rotation active rom to 65 degrees or better Target Visit 18 PT Problem 4 PT Problem #4 Impaired Strength PT Goal 1 Goal 1. 3+/5 or better R shoulder flexion 2. 3+/5 or better R shoulder abduction 3. 4/5 or better R shoulder ER at side of body Target Visit 12 PT Goal 2 Goal 1. 4/5 or better R shoulder flexion 2. 4/5 or better R shoulder abduction 3. 4+/5 or better R shoulder ER and IR Target Visit 18 PT Problem 5 PT Problem #5 Impaired Functional Mobil PT Goal 1 Goal 1. patient to reach behind back to the belt midline with the R UE
--- NOTE | 2023-04-17 14:42 | PTOPEVAL1 ---
Assessment and note entered by JT File, PT Evaluation Information Assessment Status Evaluation Diagnosis R proximal humerus fracture Onset 01/26/23 Subjective Information patient reports she fell on 01/26/23 and fracture her shoulder. she reports she passed out which caused the fall. she reports she broke several bones in her thoracic spine in the fall as well. she reports she was wearing a brace about 2.5 months. she reports she had home health rehab for her shoulder. she reports she is currently unable to lift the arm very high. she reports she is also unable to raise the arm to her side or behind her head. she reports she is unable to hold anything in the R UE for very long. she reports she has been doing pulleys at home. she does complian of some radicular symptoms into the R UE. down the arm, along the inside of the elbow, and dowm to the hand (back of hand/wrist and into the thumb). she reports the neck feels really stiff today. Reported Pain Level Pain Score 0: Self Report Assessment PT Clinical Summary mrs. puri is a 62 yo woman who presents to skilled outpatient PT following a fall and fracture to the R humerus back in January of this year. she has had home health therapy for the R shoulder, but continues to display severe decreased rom and weakness of the R shoulder. she would benefit from continued skilled PT to return her mobility, strength, and functional use of the R UE to prior level to improve her functional activity performance and quality of life. Plan of Care Interventions Electrical Stimulation,Hot Pack/Cold Pack,Manual Therapy,Neuro Re-education,Patient/Caregiver Educati,Therapeutic Activities,Therapeutic Exercise PT Services Indicated Yes Treatment Frequency and 3x weekly for 18 visits Duration These treatments will address the objective and functional deficits as defined above. The patient will be advanced safely and appropriately in order for the patient to progress towards his/her prior level of function. Additional exercises will be introduced and as well as a comprehensive home exercise program upon discharge, if needed, ?to ensure carryover of functional gains achieved in the clinic. This treatment plan has been reviewed and agreement upon by the patient.
[2023-05-10 13:50] VITALS: BP_SYST 110
--- NOTE | 2023-05-10 14:35 | OPREHPOC ---
Outpatient Therapy Plan of Care This is a Multidisciplinary Plan of Care that may contain components documented by all disciplines (PT, OT, and ST.) PT Problem 1 PT Problem #1 Knowledge Deficit PT Goal 1 Goal 1. independent and compliant with HEP to improve shoulder mobility and tolerance for continued skilled PT and exercises Target Visit 6 Progress Met PT Problem 2 PT Problem #2 Pain PT Goal 1 Goal 1. reduce pain at worst in the R shoulder to 3/10 or less to improve functional activity performance and quality of life. Target Visit 18 Progress Partially Met PT Problem 3 PT Problem #3 Impaired Range of Motion PT Goal 1 Goal 1. R shoulder passive flexion to 140 degrees or better 2. R shoulder active flexion to 135 degrees or better 3. R shoulder active ER to 60 degrees or better in scapular plane 4. R shoulder active IR to 60 degrees or better in scapular plane Target Visit 12 Progress Partially Met PT Goal 2 Goal 1. R shoulder active flexion to 145 degrees or better 2. R shoulder active ER to 60 degrees in 90 degrees abduction 3. R shoulder active IR to 60 degrees in 90 degrees abduction 4. bilateral cervical sidebending active rom to 30 degrees or better 5. bilateral cervical rotation active rom to 65 degrees or better Target Visit 18 PT Problem 4 PT Problem #4 Impaired Strength PT Goal 1 Goal 1. 3+/5 or better R shoulder flexion 2. 3+/5 or better R shoulder abduction 3. 4/5 or better R shoulder ER at side of body Target Visit 12 Progress Partially Met PT Goal 2 Goal 1. 4/5 or better R shoulder flexion 2. 4/5 or better R shoulder abduction 3. 4+/5 or better R shoulder ER and IR Target Visit 18
--- NOTE | 2023-05-10 14:36 | PTOPPROGNS ---
Assessment and note entered by JT File, PT Evaluation Information Assessment Status Progress Diagnosis R proximal humerus fracture Onset 01/26/23 Subjective Information patient reports she feels good today. she reports some pain in the R shoulder still, but reports her mobility is improved. Assessment PT Clinical Summary mrs. puri presents to skilled PT services for her 10th skilled therapy visit. she has made progress in passive and active shoulder mobility, shoulder strength, and decreased pain. she would benefit from continued skilled PT to achieve her remaining rom, strength, pain, and functional goals. she is a good candidate for continued skilled PT due to the level of progress made thus far. Plan of Care Interventions Electrical Stimulation,Hot Pack/Cold Pack,Manual Therapy,Neuro Re-education,Patient/Caregiver Educati,Therapeutic Activities,Therapeutic Exercise PT Services Indicated Yes Treatment Frequency and continue skilled PT 3x weekly for 8 more visits Duration per the initial evaluation These treatments will address the objective and functional deficits as defined above. The patient will be advanced safely and appropriately in order for the patient to progress towards his/her prior level of function. Additional exercises will be introduced and as well as a comprehensive home exercise program upon discharge, if needed, ?to ensure carryover of functional gains achieved in the clinic. This treatment plan has been reviewed and agreement upon by the patient.
[2023-06-06 13:50] VITALS: BP_SYST 110
--- NOTE | 2023-06-06 14:38 | OPREHPOC ---
Outpatient Therapy Plan of Care This is a Multidisciplinary Plan of Care that may contain components documented by all disciplines (PT, OT, and ST.) PT Problem 1 PT Problem #1 Knowledge Deficit PT Goal 1 Goal 1. independent and compliant with HEP to improve shoulder mobility and tolerance for continued skilled PT and exercises Target Visit 6 Progress Met PT Problem 2 PT Problem #2 Pain PT Goal 1 Goal 1. reduce pain at worst in the R shoulder to 3/10 or less to improve functional activity performance and quality of life. Target Visit 18 Progress Met PT Problem 3 PT Problem #3 Impaired Range of Motion PT Goal 1 Goal 1. R shoulder passive flexion to 140 degrees or better 2. R shoulder active flexion to 135 degrees or better 3. R shoulder active ER to 60 degrees or better in scapular plane 4. R shoulder active IR to 60 degrees or better in scapular plane Target Visit 12 Progress Partially Met Comment met, 1,3,4 PT Goal 2 Goal 1. R shoulder active flexion to 145 degrees or better 2. R shoulder active ER to 60 degrees in 90 degrees abduction 3. R shoulder active IR to 60 degrees in 90 degrees abduction 4. bilateral cervical sidebending active rom to 30 degrees or better 5. bilateral cervical rotation active rom to 65 degrees or better Target Visit 18 Progress Partially Met Comment met 2,3, PT Problem 4 PT Problem #4 Impaired Strength PT Goal 1 Goal 1. 3+/5 or better R shoulder flexion 2. 3+/5 or better R shoulder abduction 3. 4/5 or better R shoulder ER at side of body Target Visit 12 Progress Partially Met Comment met 1,2
--- NOTE | 2023-06-06 14:39 | PTOPDC ---
Assessment and note entered by JT File, PT Evaluation Information Assessment Status Discharge Diagnosis R proximal humerus fracture Onset 01/26/23 Subjective Information patient reports she feels Alright today. she reports she is a little sore in the arm from moving boxes at home. she reports she would like to take a break from therapy and continue with exercises at home independent. Reported Pain Level Pain Score 2: Self Report Assessment PT Clinical Summary mrs. puri presents to skilled PT for her 18th skilled therapy visit. she presents with improvements in R shoulder active and passive rom today, as well as, improved R shoulder strength. she has mad progress towards and met several goals , but continues to lack achievement of functional strength, R shoulder strength, and R shoulder rom goals. she would do well to continue with HEP at home, and will do so independent. she will be dc'd from skilled PT today. Plan of Care PT Services Indicated Yes
== END 2023-06-06 14:16 | disposition home or self-care (01) ==
LOC: CHSPT 13:45
DX: S42.291D Other displaced fracture of upper end of right humerus, subsequent encounter for fracture with routine healing (principal)
CPT/HCPCS: 97014; 97110; 97112; 97140; 97161; G0283

== ENCOUNTER 2023-11-29 11:01 | Outpatient (CLI) | payer BC, SELFPAY ==
[2023-11-29 11:25] LABS: Hematocrit 34.1 % (35.0-49.0); Hemoglobin 11.8 g/dL (12.0-15.0); Mean Corpuscular HGB Conc 34.6 g/dL (32-36); Mean Corpuscular Hemoglobin 32.5 pg (27.0-31.0); Mean Corpuscular Volume 93.9 fL (78.0-102.0); Mean Platelet Volume 10.8 fl (9.2-11.8); Platelet Count Result 51 K/mm3 (150-420); Red Blood Count 3.63 M/mm3 (4.20-5.40); Red Cell Distribution Width 14.4 % (11.6-14.4); White Blood Count 4.5 K/mm3 (4.8-10.8)
[2023-11-29 11:42] LABS: INR 1.1; Prothrombin Time 11.8 Seconds (9.50-12.1)
[2023-11-29 11:44] LABS: Add Urine Microscopic? YES; Appearance Urine Clear (Clear); Bacteria Urine 1+ /hpf; Bilirubin Urine Negative (Negative); Blood Urine 3+ (Negative); Color Urine Light Yellow (Yellow); Glucose Urine UA Trace (Negative); Ketones Urine Negative (Negative); Leukocyte Esterase Ur 3+ (Negative); Nitrate Urine Negative (Negative); Protein Urine Negative (Negative); RBC Urine 0-2 /hpf (0-2); Specific Grav Ur 1.015 (1.010-1.020); Squamous Epithelial Cell Urine Few /hpf (Few); Urobilinogen Urine 0.2 mg/dL (0.2-1.0); WBC Urine 16-20 /hpf (0-3)
[2023-11-29 12:09] LABS: Band Neutrophils Percent 0 % (0-6); Eosinophils Absolute Manual 0.31 K/mm3 (0.02-0.50); Eosinophils Percent Manual 7 % (1-6); Lymphocytes Absolute Manual 1.03 K/mm3 (1.1-4.5); Lymphocytes Percent Manual 23 % (18-44); Monocytes Absolute Manual 0.22 K/mm3 (0.1-0.90); Monocytes Percent Manual 5 % (3-9); Neutrophils Absolute Manual 2.92 K/mm3 (1.7-7.2); Neutrophils Percent Manual 65 % (46-73); Platelet Estimate Adequate (Adequate); Total Cells Counted 100
[2023-11-29 12:13] LABS: Alanine Aminotransferase 31 U/L (14-59); Alkaline Phosphatase 78 U/L (46-116); Ammonia 144 umol/L (11-32); Anion Gap 6 mmol/L (4-12); Aspartate Amino Transferase 32 U/L (15-37); Bilirubin,Total 2.3 mg/dL (0.00-1.00); Blood Urea Nitrogen 25 mg/dL (7-18); Calcium 8.5 mg/dL (8.5-10.1); Carbon Dioxide 31 mmol/L (21-32); Chloride 104 mmol/L (98-108); Estimated Glomerular Filt Rate 26; Glucose 266 mg/dL (70-99); NT Pro B Type Natriuretic Pept 162 pg/mL (0-125); Osmolality Calculated 305 mOsm/kg (285-295); Potassium 3.7 mmol/L (3.5-5.1); Sodium 141 mmol/L (136-145); Total Protein 6.2 g/dL (6.4-8.2)
== END 2023-11-29 11:02 | disposition home or self-care (01) ==
LOC: CHSLAB 11:06
PROVIDERS: PCP Internal Medicine; Visit Provider Internal Medicine
DX: K74.60 Unspecified cirrhosis of liver (principal); R06.00 Dyspnea, unspecified
CPT/HCPCS: 36415; 80053; 81001; 82140; 83880; 85025; 85055; 85610; 87077; 87086; 87186

== ENCOUNTER 2024-03-17 13:54 | Outpatient (CLI) | payer MEDICARE, SELFPAY ==
[2024-03-17 14:20] LABS: Basophils Absolute Auto 0.03 K/mm3 (0.00-0.10); Basophils Percent Auto 0.4 % (0.0-1.0); Eosinophils Percent Auto 6.9 % (1.0-6.0); Hematocrit 36.1 % (35.0-49.0); Immature Granulocyte Absolute 0.02 K/mm3 (0.00-0.00); Immature Granulocyte Percent A 0.3 % (0.0-0.0); Immature Platelet Fraction Pct 3.5 % (1.0-7.0); Lymphocytes Absolute Auto 1.35 K/mm3 (1.10-4.50); Lymphocytes Percent Auto 18.6 % (18.0-42.0); Mean Corpuscular Hemoglobin 32.7 pg (27.0-31.0); Mean Corpuscular Volume 90.9 fL (78.0-102.0); Mean Platelet Volume 11.3 fl (9.2-11.8); Monocytes Absolute Auto 0.74 K/mm3 (0.10-0.90); Monocytes Percent Auto 10.2 % (2.0-11.0); Neutrophils Absolute Auto 4.62 K/mm3 (1.70-7.20); Neutrophils Percent Auto 63.6 % (50.0-70.0); Platelet Count Result 77 K/mm3 (150-420); Red Blood Count 3.97 M/mm3 (4.20-5.40); Red Cell Distribution Width 14.7 % (11.6-14.4); White Blood Count 7.3 K/mm3 (4.8-10.8)
[2024-03-17 14:52] LABS: Add Urine Microscopic? YES; Appearance Urine Clear (Clear); Bilirubin Urine Negative (Negative); Blood Urine Negative (Negative); Color Urine Light Yellow (Yellow); Glucose Urine UA Negative (Negative); Ketones Urine Negative (Negative); Leukocyte Esterase Ur Trace (Negative); Nitrate Urine Negative (Negative); Protein Urine Negative (Negative); Specific Grav Ur 1.015 (1.010-1.020); Urobilinogen Urine 0.2 mg/dL (0.2-1.0)
[2024-03-17 15:03] LABS: RBC Urine None seen /hpf (0-2); Squamous Epithelial Cell Urine Moderate /hpf (Few); WBC Urine 0-3 /hpf (0-3)
[2024-03-17 15:04] LABS: Bacteria Urine 1+ /hpf
[2024-03-17 16:47] LABS: Ammonia 110 umol/L (11-32)
[2024-03-17 19:52] LABS: Alanine Aminotransferase 31 U/L (14-59); Albumin Level 3.2 g/dL (3.4-5.0); Alkaline Phosphatase 80 U/L (46-116); Amylase 49 U/L (25-115); Anion Gap 11 mmol/L (4-12); Aspartate Amino Transferase 34 U/L (15-37); Bilirubin,Total 3.3 mg/dL (0.00-1.00); Blood Urea Nitrogen 38 mg/dL (7-18); Calcium 8.9 mg/dL (8.5-10.1); Carbon Dioxide 28 mmol/L (21-32); Chloride 95 mmol/L (98-108); Estimated Glomerular Filt Rate 22; Ferritin 307 ng/mL (8-252); Free T3 2.43 pg/mL (2.18-3.98); Free T4 Free Thyroxine 1.28 ng/dL (0.76-1.46); Glucose 200 mg/dL (70-99); Iron 223 ug/dL (50-170); Lipase 100 U/L (16-77); NT Pro B Type Natriuretic Pept 121 pg/mL (0-125); Osmolality Calculated 293 mOsm/kg (285-295); Potassium 3.1 mmol/L (3.5-5.1); Sodium 134 mmol/L (136-145); Total Protein 6.5 g/dL (6.4-8.2); Vitamin B12 870 pg/mL (193-986)
== END 2024-03-17 13:55 | disposition home or self-care (01) ==
LOC: CHSLAB 13:57
PROVIDERS: PCP Internal Medicine; Visit Provider Internal Medicine
DX: D64.9 Anemia, unspecified (principal); K76.82 Hepatic encephalopathy; K74.69 Other cirrhosis of liver; G62.9 Polyneuropathy, unspecified; R11.2 Nausea with vomiting, unspecified; R06.00 Dyspnea, unspecified; N39.0 Urinary tract infection, site not specified
CPT/HCPCS: 36415; 80053; 81001; 82140; 82150; 82607; 82728; 83540; 83690; 83880; 84439; 84443; 84481; 85025; 85055; 87086; 87088

== ENCOUNTER 2024-04-01 08:51 | Emergency (ER) | payer MEDICARE, SELFPAY ==
[2024-04-01] VITALS (32 sets, daily range): BP systolic 110–159; BP diastolic 38–137; PULSE 70–84; RESP 12–23; TEMP 36.2; O2SAT 96–100
--- NOTE | ~2024-04-01 | CT_ITS ---
CT brain wo con Ordering provider: Wilian Wong MD History: 63 years Female with . altered mental status,CONFUSION,GARBLED SPEECH,SLOW TO RESPD . Comparison: None. Technique: CT of the head without contrast. Radiation reduction technique utilized. DLP is 605.33 mGy-cm. FINDINGS: BRAIN PARENCHYMA AND CSF SPACES: Hypodensity seen in the right cerebellar hemisphere medially extendi ng to the right cerebellar peduncle which may indicate acute infarct. Further evaluation with MRI is advised.. Mild leukoaraiosis and diffuse cortical atrophy. Mild atheromatous disease. No midline shif t, mass effect or hemorrhage. The brain parenchyma and CSF spaces are otherwise normal. VISUALIZED PARANASAL SINUSES: Bilateral ethmoid sinus disease. MASTOIDS: Well aerated. BONES: The bones appear intact. SOFT TISSUES: Visualized nasopharynx is normal. Superficial soft tissues are normal. IMPRESSION: Highly suggestive of infarct in the right cerebellar peduncle and medial aspect of the right cerebell ar hemisphere. MRI is advised. I was not able to reach to the ordering physician at the time of dictation neither through the ER nor through the automatic shirring machine operator. Reviewed, dictated and finalized at location A. IMPRESSION: Highly suggestive of infarct in the right cerebellar peduncle and medial aspect of the right cerebellar hemisphere. MRI is advised. I was not able to reach to the ordering physician at the time of dictation neit her through the ER nor through the automatic shirring machine operator.
--- NOTE | ~2024-04-01 | CT_ITS ---
EXAMINATION: CT cervical spine wo con DATE: 04/01/2024 09:21 INDICATION: Head injury. TECHNIQUE: Computed tomography (CT) of the cervical spine was performed without intravenous contrast. Automated exposure control and iterative reconstruction technique were employed. The dose-length pro duct was 515.69 mGy-cm. COMPARISON: Cervical spine CT 01/26/2023 FINDINGS: There is mild chronic anterior wedging of C7 vertebral body. There is a chronic compression fracture of T1 with 2/5 loss of height and focal kyphosis. There is moderately decreased disc height at C5-C6, mildly decreased disc height at C6-C7, and severely decreased disc height at C7-T1. The fo llowing disc levels are specifically discussed: C2-C3: There is no uncovertebral joint osteoarthritis. There is moderate bilateral facet joint osteoa rthritis. There is no neural foraminal stenosis. There is no central canal stenosis. C3-C4: There is mild bilateral uncovertebral joint osteoarthritis. There is mild bilateral facet join t osteoarthritis. There is no neural foraminal stenosis. There is no central canal stenosis. C4-C5: There is no uncovertebral joint osteoarthritis. There is mild bilateral facet joint osteoarthr itis. There is no neural foraminal stenosis. There is no central canal stenosis. C5-C6: There is mild bilateral uncovertebral joint osteoarthritis. There is mild right and mild left facet joint osteoarthritis. There is mild left neural foraminal stenosis. There is mild central canal stenosis. C6-C7: There is mild bilateral uncovertebral joint osteoarthritis. There is mild bilateral facet join t osteoarthritis. There is no neural foraminal stenosis. There is no central canal stenosis. C7-T1: There is moderate bilateral uncovertebral joint osteoarthritis. There is severe bilateral face t joint osteoarthritis. There is moderate neural foraminal stenosis. There is no central canal stenos is. IMPRESSION: 1. No acute fracture. 2. Moderate cervical spondylosis. Reviewed, dictated and finalized at location A.
--- NOTE | ~2024-04-01 | XR_ITS ---
XR chest 1V portable Ordering provider: Wilian Wong MD History: 63 years Female with . shortness of breath,WEAKNESS,CONFUSION . Comparison: January 26, 2023 FINDINGS: MEDIASTINUM: The cardiac silhouette is slightly enlarged. Congestive julia. LUNGS: No effusion or pneumothorax. Bilateral interstitial and alveolar opacification suggestive of p neumonia versus pulmonary edema. OTHER: No free air under the diaphragm. IMPRESSION: Bilateral interstitial and alveolar opacification suggestive of pulmonary edema versus pneumonia. Cli nical correlation advised. Reviewed, dictated and finalized at location A. IMPRESSION: Bilateral interstitial and alveolar opacification suggestive of pulmonary edema versus pneumonia. Clinical correlation advised.
--- NOTE | ~2024-04-01 | XR_ITS ---
SINGLE AP VIEW PELVIS Ordering provider: Wilian Wong MD History: . status post fall . Comparison: None. FINDINGS: BONES: No acute fracture or dislocation. HIP JOINT SPACES: Mild osteoarthritic changes of the hips. SACROILIAC JOINT SPACES/LUMBAR SPINE: The sacroiliac joint spaces are normal. Mild degenerative boyd es of the visualized lower lumbar spine. PUBIC SYMPHYSIS: Normal. SOFT TISSUES: Normal. IMPRESSION: No acute osseous abnormality pelvis. Reviewed, dictated and finalized at location A.
--- NOTE | 2024-04-01 08:52 | ED.AMS ---
HPI - Altered Mental Status General Chief Complaint: Altered Mental Status <Wilian Wong MD - Last Filed: 04/08/24 07:12> Stated Complaint: AMBULANCE <Wilian Wong MD - Last Filed: 04/08/24 07:12> Time Seen by Provider: 04/01/24 08:52 <Wilian Wong MD - Last Filed: 04/08/24 07:12> Source: EMS <Wilian Wong MD - Last Filed: 04/08/24 07:12> Mode of arrival: EMS <Wilian Wong MD - Last Filed: 04/08/24 07:12> Limitations: altered mental status <Wilian Wong MD - Last Filed: 04/08/24 07:12> History of Present Illness HPI narrative: 63-year-old female, ex-smoker with a history of hypertension, ERNESTINE, CKD, diabetes mellitus, [place] cirrhosis, thrombocytopenia, recurrent falls, portal vein thrombosis,hepatic encephalopathy on Xifaxan and lactulose was brought by EMS with a 1 day history of -- altered mental status. The patient has indeed a drowsy and confused. No focal deficits noted. her symptoms appear to have worsened around 9:00 p.m. yesterday. -- Questionable fall. The patient was found lying on the floor by EMS. No obvious injury noted. -- multiple episodes of vomiting -- slurred speech Blood sugar was noted to be greater than 200. the patient is unable to answer questions. <Wilian Wong MD - Last Filed: 04/08/24 07:12> MD complaint: altered mental status, confusion and decreased responsiveness <Wilian Wong MD - Last Filed: 04/08/24 07:12> Onset (ago): day(s) ( One day) <Wilian Wong MD - Last Filed: 04/08/24 07:12> Timing confirmed by: spouse <Wilian Wong MD - Last Filed: 04/08/24 07:12> Context: diabetes and liver disease <Wilian Wong MD - Last Filed: 04/08/24 07:12> Related Data Home Medications: Home Medications Medication Instructions Recorded Confirmed metolazone 10 mg tablet 10 mg PO DAILY 04/01/24 04/01/24 ondansetron HCl 4 mg tablet 4 mg PO DAILY 04/01/24 04/01/24 prochlorperazine maleate 10 mg 10 mg PO DAILY 04/01/24 04/01/24 tablet rifaximin 550 mg PO DAILY 04/01/24 04/01/24 <Wilian Wong MD - Last Filed: 04/08/24 07:12> Allergies/Adverse Reactions: Allergies Allergy/AdvReac Type Severity Reaction Status Date / Time Sulfa (Sulfonamide Allergy Mild ITCHING Verified 04/01/24 09:36 Antibiotics) sulfanilamide Allergy Unknown Other Verified 04/01/24 09:36 <Wilian Wong MD - Last Filed: 04/08/24 07:12> Review of Systems Review of Systems: ROS unobtainable: Yes unobtainable due to mental status <Wilian Wong MD - Last Filed: 04/08/24 07:12> [facility] Past Medical History Medical History: Medical History C. difficile colitis (~12/2019) Cirrhosis Confusion Diabetes mellitus HTN (hypertension) Hyperammonemia Liver failure Lung cancer Portal vein thrombosis Thrombocytopenia <Wilian Wong MD - Last Filed: 04/08/24 07:12> Surgical History Surgical History: Surgical History H/O sinus surgery History of endometrial ablation History of liver biopsy <Wilian Wong MD - Last Filed: 04/08/24 07:12> Family History Family History: Family History Mother Family history of malignant neoplasm of breast in first degree relative Father Family history of malignant neoplasm of esophagus Mother Cerebrovascular accident Sibling Hypertension Congestive heart failure <Wilian Wong MD - Last Filed: 04/08/24 07:12> Social History Social History: Social History Smoking packs per day: 0.5 Smoking cigarettes per day: 10.0 Years smoked: 51 Smoking pack-years: 25.50 Smoking status: Former smoker Tobacco type: cigarettes Second hand tobacco smoke exposure: Yes Smoking
--- NOTE | 2024-04-01 08:54 | ECG_ITS ---
Test Date: 2024-04-01 10:05:42 Measurements Intervals [place] Rate: 78 P: 65 WI: 152 QRS: 69 QRSD: 149 T: 52 QT: 424 QTc: 485 Interpretive Statements SINUS RHYTHM RIGHT BUNDLE BRANCH BLOCK [120+ ms QRS DURATION, UPRIGHT V1, 40+ ms S IN I/aVL/V4/V5/V6] No previous ECG available for comparison Electronically Signed On 04-01-2024 15:49:52 CDT by Alma Delia Flores M.D.
--- NOTE | 2024-04-01 09:15 | PC.NURSE ---
at bedside. Pt continues to be restless. Pillows placed on either side of pt to help keep her arms inside the stretcher.
[2024-04-01 09:38] LABS: Basophils Absolute Auto 0.01 K/mm3 (0.00-0.10); Basophils Percent Auto 0.2 % (0.0-1.0); Eosinophils Absolute Auto 0.07 K/mm3 (0.02-0.50); Eosinophils Percent Auto 1.2 % (1.0-6.0); Hemoglobin 10.9 g/dL (12.0-15.0); Immature Granulocyte Absolute 0.05 K/mm3 (0.00-0.00); Immature Granulocyte Percent A 0.9 % (0.0-0.0); Immature Platelet Fraction Pct 2.2 % (1.0-7.0); Lymphocytes Absolute Auto 0.54 K/mm3 (1.10-4.50); Lymphocytes Percent Auto 9.6 % (18.0-42.0); Mean Corpuscular HGB Conc 35.2 g/dL (32-36); Mean Corpuscular Hemoglobin 32.4 pg (27.0-31.0); Mean Corpuscular Volume 92.3 fL (78.0-102.0); Mean Platelet Volume 11.4 fl (9.2-11.8); Monocytes Absolute Auto 0.35 K/mm3 (0.10-0.90); Monocytes Percent Auto 6.2 % (2.0-11.0); Neutrophils Absolute Auto 4.62 K/mm3 (1.70-7.20); Neutrophils Percent Auto 81.9 % (50.0-70.0); Platelet Count Result 83 K/mm3 (150-420); Red Blood Count 3.36 M/mm3 (4.20-5.40); Red Cell Distribution Width 14.6 % (11.6-14.4); White Blood Count 5.6 K/mm3 (4.8-10.8)
[2024-04-01 09:51] LABS: Partial Thromboplastin Time 25.4 Sec (23.9-30.70); Prothrombin Time 11.3 Seconds (9.50-12.1)
[2024-04-01 09:54] LABS: Lactic Acid Reflex 3.1 mmol/L (0.4-2.0)
[2024-04-01 10:01] LABS: Acetaminophen < 2 ug/mL (10-30); Alanine Aminotransferase 26 U/L (14-59); Albumin Level 2.7 g/dL (3.4-5.0); Alkaline Phosphatase 90 U/L (46-116); Ammonia 122 umol/L (11-32); Anion Gap 6 mmol/L (4-12); Aspartate Amino Transferase 33 U/L (15-37); Bilirubin,Total 1.4 mg/dL (0.00-1.00); Blood Urea Nitrogen 86 mg/dL (7-18); Calcium 8.6 mg/dL (8.5-10.1); Carbon Dioxide 28 mmol/L (21-32); Chloride 94 mmol/L (98-108); Creatine Kinase 354 U/L (26-192); Estimated Glomerular Filt Rate 12; Glucose 297 mg/dL (70-99); NT Pro B Type Natriuretic Pept 839 pg/mL (0-125); Osmolality Calculated 303 mOsm/kg (285-295); Potassium 4.7 mmol/L (3.5-5.1); Sodium 128 mmol/L (136-145); Total Protein 6.2 g/dL (6.4-8.2)
[2024-04-01 10:04] LABS: Magnesium 2.2 mg/dL (1.8-2.4); Troponin I 27.5 ng/L (0.00-60.4)
[2024-04-01 10:08] LABS: Ethanol < 3 mg/dL (0-6)
--- NOTE | 2024-04-01 10:10 | PC.NURSE ---
pt resting in stretcher. at bedside
[2024-04-01 10:11] LABS: SARS-CoV-2 RNA PCR Negative (Negative)
[2024-04-01 10:12] LABS: Influenza A QL RT-PCR Negative (Negative); Influenza B QL RT-PCR Negative (Negative); RSV RNA, RT-PCR Negative (Negative)
[2024-04-01 10:16] LABS: Lipase 283 U/L (16-77)
[2024-04-01 10:18] LABS: Add Urine Microscopic? YES; Bilirubin Urine Negative (Negative); Blood Urine Negative (Negative); Color Urine Light Yellow (Yellow); Glucose Urine UA Negative (Negative); Ketones Urine Negative (Negative); Leukocyte Esterase Ur 1+ LEU/UL (Negative); Nitrate Urine Negative (Negative); Protein Urine Negative (Negative); Urobilinogen Urine 0.2 mg/dL (0.2-1.0)
[2024-04-01 10:28] LABS: Appearance Urine Cloudy (Clear)
[2024-04-01 10:29] LABS: Bacteria Urine 4+ /hpf; RBC Urine None seen /hpf (0-2); Squamous Epithelial Cell Urine Many /hpf (Few)
[2024-04-01 10:34] LABS: Amphetamine Screen Urine Negative (Negative); Barbiturate Screen Urine Negative (Negative); Benzodiazepines Screen Urine Negative (Negative); Cannabinoid Screen Urine Negative (Negative); Cocaine Screen Urine Negative (Negative); Methadone Screen Urine Negative (Negative); Opiate Screen Urine Negative (Negative); Phencyclidine Screen Urine Negative (Negative)
--- NOTE | 2024-04-01 11:05 | PC.NURSE ---
Gave pt blankets. Adjusted her in stretcher. No complaints or concerns at this time.
[2024-04-01] MEDS: SODIUM CHLORIDE 0.9% IV 500 ML 999 ML IV CONT (11:16)
[2024-04-01 12:34] LABS: Reflex Lactic Acid Yes or No Add Lactic
--- NOTE | 2024-04-01 12:41 | PC.NURSE ---
Placed pure wick on pt. at bedside
[2024-04-01] MEDS: LACTATED RINGERS 500 ML 999 ML IV CONT (13:11)
[2024-04-01] MEDS: LACTULOSE 20 GM/30 ML UDC PO ×3 (13:12→23:48)
[2024-04-01 13:14] LABS: Lactic Acid 2.1 mmol/L (0.4-2.0)
--- NOTE | 2024-04-01 13:20 | PC.NURSE ---
Pt resting comfortably. at bedside.
--- NOTE | 2024-04-01 14:26 | PC.NURSE ---
going home. Will be back soon. Pt sleeping.
--- NOTE | 2024-04-01 15:05 | PC.NURSE ---
Pt continuously removes monitor leads. Sleeps and then has restless moments. Keeps removing gown and covers.
[2024-04-01] MEDS: LACTATED RINGERS 1,000 ML 75 ML IV CONT (15:28)
--- NOTE | 2024-04-01 16:49 | PC.NURSE ---
Pt calm at the moment. Sister at bedside.
--- NOTE | 2024-04-01 17:51 | PC.NURSE ---
Pt resting comfortably. Sister at bedside.
[2024-04-01 18:13] LABS: Glucose Point of Care 191 mg/dl (65-105)
--- NOTE | 2024-04-01 18:18 | PC.NURSE ---
Pt's sister feeding pt applesauce.
--- NOTE | 2024-04-01 19:00 | PC.NURSE ---
assumed care. report received from Zoya MARY/Florence MARY.
--- NOTE | 2024-04-01 19:06 | PC.NURSE ---
Pt's is Catalino Levine.
--- NOTE | 2024-04-01 19:13 | PC.NURSE ---
patient resting on stretcher is at her side. continues to remove clothing and taking off cardiac monitoring. will put back in place. is at her side feeding her apple sauce. denies any needs at this time
--- NOTE | 2024-04-01 20:08 | PC.NURSE ---
Going to check pharmacy to see if Xifaxin is available.
--- NOTE | 2024-04-01 21:03 | PC.NURSE ---
patient was removed from the bedpan. no stool at this time. new linens placed on patient. put back on monitoring coordinator. patient asked for her phone. informed patient that her phone is laying on her chest. patient knows her name, where she is. states the year is 2003.
--- NOTE | 2024-04-01 21:50 | PC.NURSE ---
patient is currently resting quietly on stretcher. appears to be sleeping. resp even and unlabored. call light in reach. curtain left open for increased monitoring. purewick is in place. functioning appropriately. concentrated urine noted in collection container.
--- NOTE | 2024-04-01 22:51 | PC.NURSE ---
patient is currently resting on stretcher. appears to be sleeping. playground monitor is in place. purewick is in place. resp even and unlabored. call light and cell phone are within reach.
--- NOTE | 2024-04-01 23:16 | PC.NURSE ---
patient repositioned for comfort. ice water give. pure wick remains in place and functioning. dr stringer at the bedside socializing with patient.
--- NOTE | 2024-04-01 23:25 | PC.NURSE ---
patient has ice chips in her hands.
[2024-04-01] MEDS: PANTOPRAZOLE 40 MG TABLET PO (23:48)
--- NOTE | 2024-04-01 23:54 | PC.NURSE ---
patient is requesting bedside commode. will obtain one and place in room. art clinton, going to the floor to get patient a hospital bed.
[2024-04-02] VITALS (50 sets, daily range): BP systolic 107–138; BP diastolic 32–91; PULSE 84–105; RESP 16–20; TEMP 36.7; O2SAT 94–100
--- NOTE | 2024-04-02 00:14 | PC.NURSE ---
patient was moved over to hospital bed. patient started to vomit after being moved. patient is alert and talking with staff. patient reports that she does not need to have a bowel movement at this time. bedside commode by the door.
--- NOTE | 2024-04-02 00:42 | PC.NURSE ---
patient sitting up fidgeting with the blankets. patient reports that her feet are uncovered. helped patient get covered up. warm blanket given. patients speech has improved significantly from the time this rn took over patient care. patient is now having full conversations with staff.
--- NOTE | 2024-04-02 01:08 | PC.NURSE ---
additional warm blanket was given.
--- NOTE | 2024-04-02 01:34 | PC.NURSE ---
patient appears to be sleeping. resp even and unlabored. call light in reach.
--- NOTE | 2024-04-02 02:45 | PC.NURSE ---
patient is resting on stretcher. fidgeting with the blankets in the room. call light in reach
--- NOTE | 2024-04-02 04:11 | PC.NURSE ---
patient is sitting up on the hospital bed. has her phone in her hand. call light in reach. patient asking for a amanda or apple [employer]. educated patient on why she could not have alcohol in the hospital. patient laughed at this RN
--- NOTE | 2024-04-02 05:04 | PC.NURSE ---
patient resting queitly on hospital bed. has called out asking when breakfast is. art clinton, was informing patient of breakfast times. call light in her hands.
--- NOTE | 2024-04-02 05:17 | PC.NURSE ---
lab at the bedside
[2024-04-02 05:35] LABS: Hematocrit 28.1 % (35.0-49.0); Hemoglobin 9.9 g/dL (12.0-15.0); Immature Platelet Fraction Pct 1.6 % (1.0-7.0); Mean Corpuscular HGB Conc 35.2 g/dL (32-36); Mean Corpuscular Hemoglobin 32.9 pg (27.0-31.0); Mean Corpuscular Volume 93.4 fL (78.0-102.0); Platelet Count Result 84 K/mm3 (150-420); Red Blood Count 3.01 M/mm3 (4.20-5.40); Red Cell Distribution Width 14.9 % (11.6-14.4); White Blood Count 5.9 K/mm3 (4.8-10.8)
[2024-04-02 05:49] LABS: Ammonia 75 umol/L (11-32); Anion Gap 8 mmol/L (4-12); Blood Urea Nitrogen 74 mg/dL (7-18); Calcium 8.4 mg/dL (8.5-10.1); Carbon Dioxide 27 mmol/L (21-32); Chloride 98 mmol/L (98-108); Estimated Glomerular Filt Rate 17; Glucose 252 mg/dL (70-99); Osmolality Calculated 306 mOsm/kg (285-295); Potassium 4.5 mmol/L (3.5-5.1); Sodium 133 mmol/L (136-145)
--- NOTE | 2024-04-02 06:01 | PC.NURSE ---
patient called out asking what time breakfast was. patient was updated. patient asked if ambulance was here to take her to [facility]. informed patient that there was not an ambulance here for her at this time. that she did not have a room assignment at any facility at this time. patient was given more ice chips. encouraged patient to rest. call light in her hand
--- NOTE | 2024-04-02 06:22 | PC.NURSE ---
patient was repositioned for comfort. extra linens removed from when patient was moved from stretcher to hospital bed. no more vomiting since the move to hospital bed. patient has had no bowel movements since receiving lactulose was given.
[2024-04-02] MEDS: INSULIN HUMAN LISPRO (*BKC) 1,000 UNITS/10 ML VIAL 9 UNITS SUB-Q ×2 (08:21→12:22)
[2024-04-02] MEDS: LACTULOSE 20 GM/30 ML UDC PO (08:24)
[2024-04-02] MEDS: rifAXIMin 550 MG TABLET PO (08:24)
--- NOTE | 2024-04-02 14:53 | PC.NURSE ---
1030 [facility] DECLINED 1122 [facility] CALLED FOR UPDATE [id number] [facility] CALLED WITH BED ASSIGNMENT [id number] CALLED [facility] FOR TRANSFER [id number] [facility] ARRIVED FOR TRANSER
--- NOTE | 2024-04-02 15:03 | PC.NURSE ---
[facility] w/ transferring pt from bed to ems stretcher
--- NOTE | 2024-04-07 12:03 | PC.NURSE ---
FINAL BLOOD CULTURE RESULTS X2: NO GROWTH AFTER 5 DAYS
--- NOTE | 2024-04-14 14:28 | PC.NURSE ---
FINAL URINE CULTURE RESULTS: GREATER THAN 100,000CFU/ML OF ESCHERICIA COLI. RESULTS WERE CALLED TO DR. OBRIEN'S OFFICE, TRISTAN SIGALA PT HAS APPOINTMENT ON 04/16/24.
== END 2024-04-02 15:03 | disposition short-term general hospital (02) ==
PROVIDERS: Internal Medicine Critical Care Medicine; Emergency Provider Emergency Medicine; PCP Internal Medicine
DX: I63.9 Cerebral infarction, unspecified (principal); K76.82 Hepatic encephalopathy; I12.9 Hypertensive chronic kidney disease with stage 1 through stage 4 chronic kidney disease, or unspecified chronic kidney disease; E11.22 Type 2 diabetes mellitus with diabetic chronic kidney disease; N18.9 Chronic kidney disease, unspecified; Z20.822 Contact with and (suspected) exposure to COVID-19; Z85.118 Personal history of other malignant neoplasm of bronchus and lung; K72.90 Hepatic failure, unspecified without coma; Z87.891 Personal history of nicotine dependence; Z79.899 Other long term (current) drug therapy
CPT/HCPCS: 36415; 70450; 71045; 72125; 72170; 80048; 80053; 80307; 81001; 82140; 82550; 82948; 83605; 83690; 83735; 83880; 84484; 85025; 85027; 85055; 85610; 85730; 87040; 87077; 87086; 87088; 87181; 87186; 87637; 93005; 96361; 96365; 96367; 99285; A9270; J0696; J1815; J7040; J7120

== ENCOUNTER 2024-05-04 12:42 | Outpatient (CLI) | payer MEDICARE, SELFPAY ==
[2024-05-04 13:05] LABS: Device ROOM AIR; HCO3 VBG 26.6 mEq/l (24.0-30.0); PCO2 VBG 38.9 mmHg (42.0-48.0); PO2 VBG 57.2 mmHg (35.0-45.0); pH VBG 7.45 (7.33-7.43)
[2024-05-04 13:18] LABS: INR 1.4; Prothrombin Time 14.7 Seconds (9.50-12.1)
[2024-05-04 13:46] LABS: Alanine Aminotransferase 26 U/L (14-59); Albumin Level 3.4 g/dL (3.4-5.0); Alkaline Phosphatase 75 U/L (46-116); Anion Gap 8 mmol/L (4-12); Aspartate Amino Transferase 27 U/L (15-37); Bilirubin,Total 2.2 mg/dL (0.00-1.00); Blood Urea Nitrogen 29 mg/dL (7-18); Calcium 8.8 mg/dL (8.5-10.1); Carbon Dioxide 30 mmol/L (21-32); Chloride 105 mmol/L (98-108); Estimated Glomerular Filt Rate 30; Glucose 129 mg/dL (70-99); Osmolality Calculated 303 mOsm/kg (285-295); Potassium 3.7 mmol/L (3.5-5.1); Sodium 143 mmol/L (136-145); Total Protein 5.8 g/dL (6.4-8.2)
== END 2024-05-04 12:43 | disposition home or self-care (01) ==
LOC: CHSLAB 12:45
PROVIDERS: PCP Internal Medicine; Visit Provider Internal Medicine Gastroenterology
DX: K72.10 Chronic hepatic failure without coma (principal)
CPT/HCPCS: 36415; 80053; 82803; 85610

== ENCOUNTER 2024-05-11 11:49 | Outpatient (CLI) | payer MEDICARE, SELFPAY ==
[2024-05-11 12:32] LABS: INR 1.4; Prothrombin Time 14.6 Seconds (9.50-12.1)
[2024-05-11 12:44] LABS: HCO3 VBG 22.4 mEq/l (24.0-30.0); PCO2 VBG 35.3 mmHg (42.0-48.0); PO2 VBG 32.3 mmHg (35.0-45.0); pH VBG 7.42 (7.33-7.43)
[2024-05-11 12:52] LABS: Device ROOM AIR
[2024-05-11 14:30] LABS: Alanine Aminotransferase 29 U/L (14-59); Albumin Level 3.5 g/dL (3.4-5.0); Alkaline Phosphatase 77 U/L (46-116); Anion Gap 5 mmol/L (4-12); Aspartate Amino Transferase 38 U/L (15-37); Bilirubin,Total 2.8 mg/dL (0.00-1.00); Blood Urea Nitrogen 22 mg/dL (7-18); Calcium 8.9 mg/dL (8.5-10.1); Carbon Dioxide 32 mmol/L (21-32); Chloride 105 mmol/L (98-108); Estimated Glomerular Filt Rate 35; Glucose 132 mg/dL (70-99); Osmolality Calculated 299 mOsm/kg (285-295); Potassium 3.4 mmol/L (3.5-5.1); Sodium 142 mmol/L (136-145); Total Protein 6.2 g/dL (6.4-8.2)
== END 2024-05-11 11:50 | disposition home or self-care (01) ==
PROVIDERS: PCP Internal Medicine; Visit Provider Internal Medicine Gastroenterology
DX: K72.10 Chronic hepatic failure without coma (principal); Z68.42 Body mass index [BMI] 45.0-49.9, adult
CPT/HCPCS: 36415; 80053; 82803; 85610

== ENCOUNTER 2024-05-21 16:31 | Outpatient (CLI) | payer MEDICARE, SELFPAY ==
--- NOTE | ~2024-05-21 | XR_ITS ---
XR foot RT min 3V Ordering provider: Maddy Romano MD History: . SOB . Comparison: None. FINDINGS: BONES: No acute fracture or dislocation. Calcaneus spur. JOINT SPACES: Normal. No tarsal coalition. SOFT TISSUES: Normal. IMPRESSION: No acute osseous abnormality of the right foot. Reviewed, dictated and finalized at location A.
== END 2024-05-21 16:32 | disposition home or self-care (01) ==
LOC: CHSIMG 16:33
PROVIDERS: PCP Internal Medicine; Visit Provider Internal Medicine
DX: M79.671 Pain in right foot (principal)
CPT/HCPCS: 73630

== ENCOUNTER 2024-06-08 09:47 | Outpatient (CLI) | payer MEDICARE, SELFPAY ==
--- NOTE | ~2024-06-08 | CT_ITS ---
EXAMINATION: CT abdomen pelvis wo con DATE: 06/08/2024 10:36 INDICATION: Nausea and vomiting. Abdominal pain. TECHNIQUE: Computed tomography (CT) of the abdomen and pelvis was performed without intravenous contr ast. Automated exposure control and iterative reconstruction technique were employed. The dose-length product was 1307.72 mGy-cm. COMPARISON: CT abdomen and pelvis 07/25/2022, thoracic spine CT 01/26/23 FINDINGS: The visualized portions of the lung bases are clear without pneumonia or pleural effusion. The heart size is normal. No pericardial effusion. The liver is smaller surface nodularity, consisten t with cirrhosis. There is a chronic 4.7 cm cyst in the liver. There is mild splenomegaly. There are gallstones in the gallbladder, which is normal in size. The pancreas, adrenal glands, and kidneys are normal. There is no urolithiasis. There are no dilated loops of bowel. The appendix is normal. There are no pathologically enlarged lymph nodes. There is no free intraperitoneal fluid. There is mild th oracic and lumbar spondylosis. There is a chronic compression fracture of T9. IMPRESSION: 1. Cirrhosis of the liver with portal venous hypertension. Reviewed, dictated and finalized at location B.
[2024-06-08 10:21] LABS: Basophils Absolute Auto 0.03 K/mm3 (0.00-0.10); Basophils Percent Auto 0.4 % (0.0-1.0); Eosinophils Absolute Auto 1.21 K/mm3 (0.02-0.50); Eosinophils Percent Auto 17.2 % (1.0-6.0); Hematocrit 42.8 % (35.0-49.0); Hemoglobin 14.7 g/dL (12.0-15.0); Immature Granulocyte Absolute 0.03 K/mm3 (0.00-0.00); Immature Granulocyte Percent A 0.4 % (0.0-0.0); Lymphocytes Absolute Auto 1.34 K/mm3 (1.10-4.50); Mean Corpuscular HGB Conc 34.3 g/dL (32-36); Mean Corpuscular Hemoglobin 31.6 pg (27.0-31.0); Mean Platelet Volume 11.6 fl (9.2-11.8); Monocytes Absolute Auto 0.68 K/mm3 (0.10-0.90); Monocytes Percent Auto 9.7 % (2.0-11.0); Neutrophils Absolute Auto 3.75 K/mm3 (1.70-7.20); Neutrophils Percent Auto 53.3 % (50.0-70.0); Platelet Count Result 82 K/mm3 (150-420); Red Blood Count 4.65 M/mm3 (4.20-5.40); Red Cell Distribution Width 16.3 % (11.6-14.4)
[2024-06-08 10:51] LABS: Band Neutrophils Percent 0 % (0-6); Basophils Percent Manual 0 % (0-1); Eosinophils Absolute Manual 0.84 K/mm3 (0.02-0.50); Eosinophils Percent Manual 12 % (1-6); Lymphocytes Absolute Manual 0.98 K/mm3 (1.1-4.5); Lymphocytes Percent Manual 14 % (18-44); Monocytes Absolute Manual 0.91 K/mm3 (0.1-0.90); Monocytes Percent Manual 13 % (3-9); Neutrophils Absolute Manual 4.27 K/mm3 (1.7-7.2); Neutrophils Percent Manual 61 % (46-73); Platelet Estimate Decreased (Adequate); Total Cells Counted 100
[2024-06-08 11:03] LABS: Albumin Level 3.2 g/dL (3.4-5.0); Anion Gap 11 mmol/L (4-12); Blood Urea Nitrogen 34 mg/dL (7-18); Calcium 9.1 mg/dL (8.5-10.1); Carbon Dioxide 28 mmol/L (21-32); Chloride 98 mmol/L (98-108); Estimated Glomerular Filt Rate 23; Ferritin 220 ng/mL (8-252); Glucose 196 mg/dL (70-99); Iron 105 ug/dL (50-170); Osmolality Calculated 296 mOsm/kg (285-295); Percent Iron Saturation 40 % (12-57); Phosphorus 3.4 mg/dL (2.6-4.7); Potassium 4.2 mmol/L (3.5-5.1); Sodium 137 mmol/L (136-145)
[2024-06-08 14:06] LABS: Add Urine Microscopic? YES; Appearance Urine Clear (Clear); Bilirubin Urine Negative (Negative); Blood Urine Negative (Negative); Glucose Urine UA Negative (Negative); Ketones Urine Negative (Negative); Leukocyte Esterase Ur 2+ LEU/UL (Negative); Nitrate Urine Negative (Negative); Protein Urine Negative (Negative); Specific Grav Ur 1.015 (1.010-1.020); Urobilinogen Urine 0.2 mg/dL (0.2-1.0)
[2024-06-08 14:13] LABS: Bacteria Urine 2+ /hpf; Color Urine Yellow (Yellow); RBC Urine None seen /hpf (0-2); Squamous Epithelial Cell Urine Moderate /hpf (Few)
[2024-06-08 14:14] LABS: Budding Yeast Urine Present /hpf
[2024-06-10 06:58] LABS: Vitamin D 25 Hydroxy 58 ng/mL (30-100)
== END 2024-06-08 09:48 | disposition home or self-care (01) ==
LOC: CHSIMG 09:52
PROVIDERS: PCP Internal Medicine; Visit Provider Internal Medicine Gastroenterology
DX: N18.32 Chronic kidney disease, stage 3b (principal); I10 Essential (primary) hypertension; E87.70 Fluid overload, unspecified; N17.9 Acute kidney failure, unspecified; R11.2 Nausea with vomiting, unspecified; R10.9 Unspecified abdominal pain; K74.60 Unspecified cirrhosis of liver; K76.6 Portal hypertension
CPT/HCPCS: 36415; 74176; 80069; 81001; 82306; 82610; 82728; 83540; 83550; 85025; 85055; 87086; 87088

== ENCOUNTER 2024-06-15 13:27 | Outpatient (CLI) | payer MEDICARE, SELFPAY ==
[2024-06-15 14:00] LABS: Hematocrit 39.2 % (35.0-49.0); Hemoglobin 13.8 g/dL (12.0-15.0); Immature Platelet Fraction Pct 4.3 % (1.0-7.0); Mean Corpuscular HGB Conc 35.2 g/dL (32-36); Mean Corpuscular Hemoglobin 31.7 pg (27.0-31.0); Mean Corpuscular Volume 89.9 fL (78.0-102.0); Mean Platelet Volume 11.7 fl (9.2-11.8); Platelet Count Result 75 K/mm3 (150-420); Red Blood Count 4.36 M/mm3 (4.20-5.40); Red Cell Distribution Width 15.9 % (11.6-14.4); White Blood Count 7.3 K/mm3 (4.8-10.8)
[2024-06-15 14:01] LABS: HCO3 VBG 24.1 mEq/l (24.0-30.0); PCO2 VBG 32.2 mmHg (42.0-48.0); PO2 VBG 57.5 mmHg (35.0-45.0); pH VBG 7.49 (7.33-7.43)
[2024-06-15 14:04] LABS: Add Urine Microscopic? YES; Appearance Urine Clear (Clear); Bilirubin Urine Negative (Negative); Blood Urine Negative (Negative); Color Urine Light Yellow (Yellow); Glucose Urine UA Negative (Negative); Ketones Urine Negative (Negative); Leukocyte Esterase Ur 1+ (Negative); Nitrate Urine Negative (Negative); Protein Urine Negative (Negative); Urobilinogen Urine 0.2 mg/dL (0.2-1.0); pH Urine 5.5 (5.0-8.0)
[2024-06-15 14:05] LABS: Device ROOM AIR
[2024-06-15 14:07] LABS: Bacteria Urine Trace /hpf; RBC Urine None seen /hpf (0-2); Squamous Epithelial Cell Urine Few /hpf (Few); WBC Urine 0-5 /hpf (0-3)
[2024-06-15 14:28] LABS: Band Neutrophils Percent 0 % (0-6); Basophils Percent Manual 0 % (0-1); Eosinophils Absolute Manual 0.94 K/mm3 (0.02-0.50); Eosinophils Percent Manual 13 % (1-6); Lymphocytes Absolute Manual 2.33 K/mm3 (1.1-4.5); Lymphocytes Percent Manual 32 % (18-44); Monocytes Absolute Manual 0.58 K/mm3 (0.1-0.90); Monocytes Percent Manual 8 % (3-9); Neutrophils Absolute Manual 3.43 K/mm3 (1.7-7.2); Neutrophils Percent Manual 47 % (46-73); Platelet Estimate Decreased (Adequate); Total Cells Counted 100
[2024-06-15 15:15] LABS: Alanine Aminotransferase 40 U/L (14-59); Albumin Level 2.9 g/dL (3.4-5.0); Alkaline Phosphatase 101 U/L (46-116); Anion Gap 9 mmol/L (4-12); Aspartate Amino Transferase 35 U/L (15-37); Bilirubin,Total 2.2 mg/dL (0.00-1.00); Blood Urea Nitrogen 43 mg/dL (7-18); Carbon Dioxide 25 mmol/L (21-32); Chloride 99 mmol/L (98-108); Estimated Glomerular Filt Rate 22; Ferritin 203 ng/mL (8-252); Glucose 130 mg/dL (70-99); Iron 106 ug/dL (50-170); Osmolality Calculated 288 mOsm/kg (285-295); Percent Iron Saturation 44 % (12-57); Phosphorus 3.5 mg/dL (2.6-4.7); Potassium 4.3 mmol/L (3.5-5.1); Sodium 133 mmol/L (136-145); Total Protein 6.5 g/dL (6.4-8.2)
[2024-06-17 05:49] LABS: Vitamin D 25 Hydroxy 54 ng/mL (30-100)
== END 2024-06-15 13:28 | disposition home or self-care (01) ==
LOC: CHSLAB 13:32
PROVIDERS: PCP Internal Medicine; Visit Provider Internal Medicine Gastroenterology
DX: K72.10 Chronic hepatic failure without coma (principal); Z68.42 Body mass index [BMI] 45.0-49.9, adult; N18.32 Chronic kidney disease, stage 3b; I10 Essential (primary) hypertension; E87.70 Fluid overload, unspecified; N17.9 Acute kidney failure, unspecified; R82.90 Unspecified abnormal findings in urine
CPT/HCPCS: 36415; 80053; 81001; 82306; 82728; 82803; 83540; 83550; 84100; 85025; 85055; 87086; 87088

== ENCOUNTER 2024-07-20 11:27 | Outpatient (CLI) | payer OTHER, SELFPAY ==
[2024-07-20 12:17] LABS: Kit Draw Collected
== END 2024-07-20 11:28 | disposition home or self-care (01) ==
LOC: CHSLAB 11:31
PROVIDERS: PCP Internal Medicine; Visit Provider Transplant Surgery
DX: N18.6 End stage renal disease (principal)
CPT/HCPCS: 36415

== ENCOUNTER 2024-08-03 10:59 | Outpatient (RCR) | payer MEDICARE, SELFPAY ==
[2024-05-18 14:14] LABS: HCO3 VBG 25.6 mEq/l (24.0-30.0); PCO2 VBG 39.1 mmHg (42.0-48.0); pH VBG 7.43 (7.33-7.43)
[2024-05-18 14:17] LABS: Device ROOM AIR
[2024-05-18 14:32] LABS: Alanine Aminotransferase 27 U/L (14-59); Albumin Level 3.4 g/dL (3.4-5.0); Alkaline Phosphatase 83 U/L (46-116); Anion Gap 8 mmol/L (4-12); Aspartate Amino Transferase 33 U/L (15-37); Bilirubin,Total 4.4 mg/dL (0.00-1.00); Blood Urea Nitrogen 19 mg/dL (7-18); Calcium 8.8 mg/dL (8.5-10.1); Carbon Dioxide 31 mmol/L (21-32); Chloride 101 mmol/L (98-108); Estimated Glomerular Filt Rate 38; Glucose 140 mg/dL (70-99); Osmolality Calculated 294 mOsm/kg (285-295); Potassium 3.3 mmol/L (3.5-5.1); Sodium 140 mmol/L (136-145); Total Protein 6.2 g/dL (6.4-8.2)
[2024-05-25 14:34] LABS: HCO3 VBG 28.4 mEq/l (24.0-30.0); PCO2 VBG 41.3 mmHg (42.0-48.0); PO2 VBG 35.2 mmHg (35.0-45.0); pH VBG 7.46 (7.33-7.43)
[2024-05-25 14:39] LABS: Device ROOM AIR
[2024-05-25 14:55] LABS: Alanine Aminotransferase 29 U/L (14-59); Albumin Level 3.2 g/dL (3.4-5.0); Alkaline Phosphatase 88 U/L (46-116); Anion Gap 6 mmol/L (4-12); Aspartate Amino Transferase 36 U/L (15-37); Bilirubin,Total 3.2 mg/dL (0.00-1.00); Blood Urea Nitrogen 29 mg/dL (7-18); Calcium 9.2 mg/dL (8.5-10.1); Carbon Dioxide 31 mmol/L (21-32); Chloride 99 mmol/L (98-108); Estimated Glomerular Filt Rate 32; Glucose 156 mg/dL (70-99); Osmolality Calculated 290 mOsm/kg (285-295); Potassium 3.5 mmol/L (3.5-5.1); Sodium 136 mmol/L (136-145)
[2024-06-01 13:08] LABS: Device ROOM AIR; HCO3 VBG 26.8 mEq/l (24.0-30.0); PCO2 VBG 40.6 mmHg (42.0-48.0); PO2 VBG 43.8 mmHg (35.0-45.0); pH VBG 7.44 (7.33-7.43)
[2024-06-01 13:45] LABS: Alanine Aminotransferase 28 U/L (14-59); Albumin Level 3.1 g/dL (3.4-5.0); Alkaline Phosphatase 93 U/L (46-116); Anion Gap 6 mmol/L (4-12); Aspartate Amino Transferase 28 U/L (15-37); Bilirubin,Total 2.9 mg/dL (0.00-1.00); Blood Urea Nitrogen 28 mg/dL (7-18); Carbon Dioxide 31 mmol/L (21-32); Chloride 99 mmol/L (98-108); Estimated Glomerular Filt Rate 29; Glucose 163 mg/dL (70-99); Osmolality Calculated 291 mOsm/kg (285-295); Potassium 3.6 mmol/L (3.5-5.1); Sodium 136 mmol/L (136-145); Total Protein 6.4 g/dL (6.4-8.2)
[2024-06-22 14:32] LABS: PCO2 VBG 43.6 mmHg (42.0-48.0); PO2 VBG 37.9 mmHg (35.0-45.0); pH VBG 7.43 (7.33-7.43)
[2024-06-22 14:33] LABS: Device ROOM AIR
[2024-06-22 15:01] LABS: Alanine Aminotransferase 52 U/L (14-59); Albumin Level 2.6 g/dL (3.4-5.0); Alkaline Phosphatase 114 U/L (46-116); Anion Gap 7 mmol/L (4-12); Aspartate Amino Transferase 35 U/L (15-37); Bilirubin,Total 1.7 mg/dL (0.00-1.00); Blood Urea Nitrogen 33 mg/dL (7-18); Calcium 9.1 mg/dL (8.5-10.1); Carbon Dioxide 29 mmol/L (21-32); Chloride 101 mmol/L (98-108); Estimated Glomerular Filt Rate 22; Glucose 207 mg/dL (70-99); Osmolality Calculated 297 mOsm/kg (285-295); Potassium 4.5 mmol/L (3.5-5.1); Sodium 137 mmol/L (136-145); Total Protein 6.3 g/dL (6.4-8.2)
[2024-07-06 14:49] LABS: Anion Gap 7 mmol/L (4-12); Blood Urea Nitrogen 35 mg/dL (7-18); Calcium 8.9 mg/dL (8.5-10.1); Carbon Dioxide 29 mmol/L (21-32); Chloride 99 mmol/L (98-108); Estimated Glomerular Filt Rate 24; Glucose 235 mg/dL (70-99); Osmolality Calculated 296 mOsm/kg (285-295); Potassium 4.1 mmol/L (3.5-5.1); Sodium 135 mmol/L (136-145)
[2024-07-20 11:51] LABS: Device ROOM AIR; HCO3 VBG 28.7 mEq/l (24.0-30.0); PCO2 VBG 42.1 mmHg (42.0-48.0); PO2 VBG 33.9 mmHg (35.0-45.0); pH VBG 7.45 (7.33-7.43)
[2024-07-20 12:07] LABS: Anion Gap 5 mmol/L (4-12); Blood Urea Nitrogen 31 mg/dL (7-18); Calcium 9.6 mg/dL (8.5-10.1); Carbon Dioxide 30 mmol/L (21-32); Chloride 100 mmol/L (98-108); Estimated Glomerular Filt Rate 27; Glucose 228 mg/dL (70-99); Osmolality Calculated 293 mOsm/kg (285-295); Potassium 4.3 mmol/L (3.5-5.1); Sodium 135 mmol/L (136-145)
[2024-08-03 11:23] LABS: PCO2 VBG 33.2 mmHg (42.0-48.0); PO2 VBG 62.5 mmHg (35.0-45.0); pH VBG 7.46 (7.33-7.43)
[2024-08-03 11:24] LABS: Device ROOM AIR
[2024-08-03 11:32] LABS: Anion Gap 10 mmol/L (4-12); Blood Urea Nitrogen 32 mg/dL (7-18); Calcium 9.3 mg/dL (8.5-10.1); Carbon Dioxide 27 mmol/L (21-32); Chloride 99 mmol/L (98-108); Estimated Glomerular Filt Rate 24; Glucose 185 mg/dL (70-99); Osmolality Calculated 293 mOsm/kg (285-295); Potassium 3.9 mmol/L (3.5-5.1); Sodium 136 mmol/L (136-145)
== END 2024-08-16 23:59 | disposition home or self-care (01) ==
LOC: CHSLAB 10:59
PROVIDERS: PCP Internal Medicine; Visit Provider Internal Medicine Gastroenterology
DX: K72.10 Chronic hepatic failure without coma (principal); I12.9 Hypertensive chronic kidney disease with stage 1 through stage 4 chronic kidney disease, or unspecified chronic kidney disease; N17.9 Acute kidney failure, unspecified; N18.32 Chronic kidney disease, stage 3b; E87.70 Fluid overload, unspecified; Z68.42 Body mass index [BMI] 45.0-49.9, adult
CPT/HCPCS: 36415; 80048; 80053; 82803

== ENCOUNTER 2024-08-24 12:51 | Outpatient (CLI) | payer OTHER, SELFPAY ==
[2024-08-24 17:53] LABS: Kit Draw Collected
== END 2024-08-24 12:52 | disposition home or self-care (01) ==
LOC: CHSLAB 12:53
PROVIDERS: PCP Internal Medicine; Visit Provider Transplant Surgery
DX: N18.6 End stage renal disease (principal)
CPT/HCPCS: 36415

== ENCOUNTER 2024-09-07 12:58 | Outpatient (RCR) | payer MEDICARE, SELFPAY ==
[2024-08-24 13:20] LABS: HCO3 VBG 23.3 mEq/l (24.0-30.0); PCO2 VBG 32.2 mmHg (42.0-48.0); PO2 VBG 57.7 mmHg (35.0-45.0); pH VBG 7.48 (7.33-7.43)
[2024-08-24 13:27] LABS: Device ROOM AIR
[2024-08-24 13:52] LABS: Anion Gap 9 mmol/L (4-12); Blood Urea Nitrogen 31 mg/dL (7-18); Calcium 8.8 mg/dL (8.5-10.1); Carbon Dioxide 27 mmol/L (21-32); Chloride 100 mmol/L (98-108); Estimated Glomerular Filt Rate 26; Glucose 237 mg/dL (70-99); Osmolality Calculated 296 mOsm/kg (285-295); Potassium 3.7 mmol/L (3.5-5.1); Sodium 136 mmol/L (136-145)
[2024-09-07 13:24] LABS: HCO3 VBG 25.2 mEq/l (24.0-30.0); PCO2 VBG 41.4 mmHg (42.0-48.0); PO2 VBG 48.4 mmHg (35.0-45.0)
[2024-09-07 13:25] LABS: Device ROOM AIR
[2024-09-07 13:49] LABS: Anion Gap 10 mmol/L (4-12); Blood Urea Nitrogen 20 mg/dL (7-18); Calcium 8.6 mg/dL (8.5-10.1); Carbon Dioxide 27 mmol/L (21-32); Chloride 101 mmol/L (98-108); Estimated Glomerular Filt Rate 29; Glucose 383 mg/dL (70-99); Osmolality Calculated 304 mOsm/kg (285-295); Potassium 3.6 mmol/L (3.5-5.1); Sodium 138 mmol/L (136-145)
== END 2024-11-22 23:59 | disposition home or self-care (01) ==
LOC: CHSLAB 12:58
PROVIDERS: PCP Internal Medicine; Visit Provider Internal Medicine Gastroenterology
DX: K75.81 Nonalcoholic steatohepatitis (NASH) (principal); Z68.42 Body mass index [BMI] 45.0-49.9, adult
CPT/HCPCS: 36415; 80048; 82803

== ENCOUNTER 2024-09-21 13:41 | Outpatient (CLI) | payer OTHER, SELFPAY ==
--- OUTSIDE RECORDS SUMMARY | 2024-09-21 13:52 | XMS_ITS | Referral Summary ---
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 Role Phone Maddy Romano MD Primary Care Provider Manas Ibarra MD Unavailable Zion Barton MD Unavailable [phone] Molina Charles MD Unavailable [phone] Inés Lemus RN Unavailable [phone] Karuna Maria OT Unavailable UnavailRenu Mueller NP Unavailable [phone] Eladio Mcrae MD Unavailable [phone] Tamiko Schroeder RN Unavailable [phone] Encounters Date Type Department Care Team Description 09/15/2024 Documentation [facility] Gastroenterology [address] [facility] 12th [place] [address] [place] [address] Alexandra Issa RN 09/14/2024 Telephone [facility] Transplant Liver [address] [facility] [address] Mailstop [phone] [place] [address] Inés Lemus, RN 09/07/2024 Orders Only [facility] Scanning, Provider 08/30/2024 Telephone [facility] Transplant Liver [address] [facility] [address] Mailstop [phone] [place] [address] Insé Lemus, RN 08/28/2024 Documentation [facility] Gastroenterology [address] [facility] 12th [place] [address] [place] [address] Alexandra Issa, TYRA 08/27/2024 1:40 PM ART EDUCATOR Lab [facility] Advanced [facility] ([facility] [address] [place] [address] LYONS (nonalcoholic steatohepatitis) 08/25/2024 Documentation [facility] Gastroenterology [address] [facility] Advanced [facility] 12th [place] [address] [place] [address] Alexandra Issa, TYRA 08/25/2024 Telephone [facility] Transplant Liver [address] [facility] [address] Mailstop [phone] [place] [address] Inés Lemus, TYRA 08/25/2024 Documentation [facility] Gastroenterology [address] [facility] Advanced [facility] 12th [place] [address] [place] [address] Alexandra Issa, TYRA 08/24/2024 10:00 AM ART EDUCATOR - 08/24/2024 11:59 PM ART EDUCATOR Hospital Encounter [facility] of [address] [address] ESRD (end stage renal disease) (CMS/HCC) (HCC) Discharge Disposition: Discharge to home or self care 08/24/2024 Orders Only [facility] Scanning, Provider 08/24/2024 9:00 AM ART EDUCATOR Social Work [facility] Trans[facility] [address] [facility], 8th Floor, [place] [address] Ragini Garner LCSW 08/17/2024 Telephone [facility] Transplant Liver [address] [facility] [address] Mailstop [phone] [place] [address] Inés Lemus, TYRA 08/07/2024 Telephone [facility] Transplant Liver [address] [facility] [address] Mailstop [phone] [place] [address] Inés Lemus, TYRA 08/06/2024 4:35 PM ART EDUCATOR Lab [facility] [address] [place] [address] Hepatic encephalopathy (HCC); Type 2 diabetes mellitus with stage 4 chronic kidney disease, with long-term current use of insulin (HCC); Hepatic cirrhosis, unspecified hepatic cirrhosis type, unspecified whether ascites present (HCC); Dysuria 08/06/2024 3:45 PM ART EDUCATOR Office Visit [facility] G[facility]enterology [address] [place] [address] Medical Office Building [address], [address] [place] [phone] Taiwo Vázquez MD Hepatic cirrhosis, unspecified hepatic cirrhosis type, unspecified whether ascites present (HCC) (Primary Dx); Hepatic encephalopathy (HCC); Type 2 diabetes mellitus with stage 4 chronic kidney disease, with long-term current use of insulin (HCC); Class 3 severe obesity due to excess calories with serious comorbidity and body mass index (BMI) of 40.0 to 44.9 in adult (HCC); 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 (CMS/HCC) (HCC); Dysuria 08/03/2024 Orders Only [facility]STR[facility] Scanning, Provider 07/31/2024 Documentation [facility] Gastroenterology [facility] 12th [place] [address] [place] [address] Alexandra Issa RN 07/31/2024 Documentation [facility] Transplant Liver [address] [facility] [address] Mailstop [phone] [place] [address] Chelsea Barker RN 07/31/2024 Orders Only [facility] Medicine 12th [place] [address] [place] [address] Alexandra Issa RN 07/30/2024 3:45 PM ART EDUCATOR Lab [facility] ([facility]) [address] [place] [phone] ESRD (end stage renal disease) (CMS/HCC) (HCC); LYONS (nonalcoholic steatohepatitis) 07/24/2024 Telephone [facility] Transplant Liver [address] [facility] [address] Mailstop [phone] [place] [address] Inés Lemus, TYRA 07/24/2024 Telephone [facility] Transplant Liver [address] [facility] [address] Mailstop [phone] [place] [address] Inés Lemus, TYRA 07/22/2024 Documentation [facility] Gastroenterology [address] [place] [address] 12th [place] [address] [place] [address] Alexandra Issa RN 07/20/2024 10:00 AM ART EDUCATOR - 07/20/2024 11:59 PM ART EDUCATOR Hospital Encounter [facility] [address] [place] [address] ESRD (end stage renal disease) (CMS/HCC) (HCC) Discharge Disposition: Discharge to home or self care 07/20/2024 Orders Only [facility] Scanning, Provider 07/17/2024 Telephone [facility] Specialty Services [address] [place] [address] Mayra Machuca RN 07/17/2024 Telephone [facility] Transplant Liver [address] [facility] [address] Mailstop [phone] [place] [address] Inés Lemus, TYRA 07/15/2024 10:30 AM ART EDUCATOR Office Visit [facility] Gasteroenterology [address] [place] [address] 12th [place] [address] [place] [phone] Britany Toribio MD Cirrhosis of liver without ascites, unspecified hepatic cirrhosis type (HCC) (Primary Dx) 07/08/2024 Documentation [facility] Gastroenterology [address] [facility] Medicine 12th [place] [address] [place] [address] Alexandra Issa RN 07/03/2024 Telephone [facility] Transplant Liver [address] [facility] [address] Mailstop [phone] [place] [address] Inés Lemus, TYRA 07/02/2024 Documentation [facility] Gastroenterology [address] [facility] Medicine 12th [place] [address] [place] [address] Alexandra Issa RN 06/30/2024 2:20 PM ART EDUCATOR Lab [facility] ([facility]) [address] [place] [phone] LYONS (nonalcoholic steatohepatitis) 06/30/2024 11:10 AM ART EDUCATOR Office Visit [facility] Nephrology [address] [place] [address] 5th [place] [address] [place] [address] Stage 3b chronic kidney disease (HCC) (Primary Dx); Hypertension, unspecified type; Anemia in stage 3b chronic kidney disease (HCC) 06/23/2024 Documentation [facility] Gastroenterology [address] [facility] 12th [place] [address] [place] [address] Alexandra Issa RN 06/23/2024 Telephone [facility] Transplant Liver [address] [facility] [address] Mailst [phone] [place] [address] Inés Lemus, TYRA 06/23/2024 Orders Only [address] [address] Timothy Pardo MD ESRD (end stage renal disease) (CMS/HCC) (HCC) 06/22/2024 Orders Only [facility] Scanning, Provider from Last 3 Months Allergies Active Allergy Reactions Criticality Noted Date Comments Moxifloxacin Itching Low 10/15/2019 Sulfa (Sulfonamide Antibiotics) Hives Medium Medications metoprolol tartrate (LOPRESSOR) 25 mg immediate release tablet 1 tablet (25 mg total) 2 (two) times a day 021 Active acetaminophen (TYLENOL) 325 mg tabletIndications :Pain Take 2 tablets (650 mg total) by mouth every 8 (eight) hours 023 Active pen needle, diabetic 31 gauge x 10/25 needleIndications :Type 2 diabetes mellitus without complication, unspecified whether usp insulin use (HCC) Use to inject insulin 6 times per day. 200 each 11 023 Active semaglutide (OZEMPIC) 1 mg/dose (4 mg/3 mL) pen injector injection Inject 1 mg under the skin every 7 days 3 mL 6 024 Active Additional Information Patient not taking.Reported on 08/06/2024 rifAXIMin (Xifaxan) 550 mg tabletIndications :Hepatic encephalopathy (HCC),Cirrhosis of liver without ascites, unspecified hepatic cirrhosis type (HCC) Take 1 tablet (550 mg total) by mouth 2 (two) times a day 60 tablet 11 024 Active gabapentin (NEURONTIN) 100 mg capsule 1 capsule (100 mg total) 024 Active prochlorperazine (COMPAZINE) 10 mg tablet Take 1 tablet (10 mg total) by mouth nightly as needed for nausea or vomiting 30 tablet 3 024 Active insulin lispro (HumaLOG, ADMELOG) 100 unit/mL pen for injectionIndicati ons:type 2 diabetes mellitus Inject 2 Units under the skin 2 (two) times a day before breakfast and lunch (plus blood glucose mg/dL 150-199: 1 unit, 200-249: 2 units, 250-299: 3 units, 300-349: 4 units, 350 or greater: 5 units. Notify provider for blood glucose greater than 299 mg/dL. Max daily dose 40) Refer to After Visit Summary for Sliding Scale Insulin Instructions. 1.2 mL 3 024 Active insulin lispro (HumaLOG, ADMELOG) 100 unit/mL pen for injectionIndicati ons:type 2 diabetes mellitus Inject 10 Units under the skin daily with dinner (plus blood glucose mg/dL 150-199: 1 unit, 200-249: 2 units, 250-299: 3 units, 300-349: 4 units, 350 or greater: 5 units. Notify provider for blood glucose greater than 299 mg/dL. Max daily dose 40) Refer to After Visit Summary for Sliding Scale Insulin Instructions. 3 mL 3 Active lactulose solution 10 gram/15mL Take 30 mL (20 g total) by mouth 3 (three) times a day 2700 mL 3 Active zinc sulfate (ZINCATE) 50 mg zinc (220 mg) capsule Take 1 capsule (220 mg total) by mouth daily 30 capsule 11 024 2024 Active insulin glargine 100 unit/mL (3 mL) pen for injection Inject 20 Units under the skin nightly 15 mL 024 2024 Active bumetanide (BUMEX) 1 mg tabletIndications :Stage 3b chronic kidney disease (HCC) TAKE 2 TABLETS BY MOUTH EVERY MORNING AND 1 TABLET EVERY EVENING MEAL 270 tablet Active ondansetron (ZOFRAN) 4 mg tablet Take 1 tablet (4 mg total) by mouth every 8 (eight) hours as needed for nausea or vomiting 30 tablet 1 Active thiamine (VITAMIN B-1) 100 mg tablet Take 1 tablet (100 mg total) by mouth daily Active cholestyramine (Questran) 4 gram packet Take 1 packet by mouth 2 (two) times a day 60 packet 2 024 2024 Active phentermine (ADIPEX-P) 37.5 mg tabletIndications :Class 2 severe obesity due to excess calories with serious comorbidity and body mass index (BMI) of 39.0 to 39.9 in adult (HCC) Take 1 tablet (37.5 mg total) by mouth daily before breakfast 30 tablet [address] (PROTONIX) 40 mg EC tablet Take 1 tablet (40 mg total) by mouth daily 30 tablet 11 [address] (PROTONIX) 40 mg EC tablet Take 1 tablet (40 mg total) by mouth daily 30 tablet 5 Active Linzess 145 mcg capsule TAKE 1 CAPSULE(145 MCG) BY MOUTH DAILY 30 capsule 3 024 Active blood-glucose sensor (Dexcom G6 Sensor) deviceIndications :Type 2 diabetes mellitus with stage 3a chronic kidney disease, unspecified whether usp insulin use (HCC) Will use 1 sensor every 10 days. 1 box = 3 sensors. 3 each 5 025 Active blood-glucose transmitter (Dexcom G6 Transmitter) deviceIndications :Type 2 diabetes mellitus without complication, unspecified whether usp insulin use (HCC) Will use 1 transmitter every 90 days 1 each 1 025 Active spironolactone (ALDACTONE) 100 mg tablet Take 3 tablets (300 mg total) by mouth daily 90 tablet 11 025 2025 Active spironolactone (ALDACTONE) 50 mg tablet Take 5 tablets (250 mg total) by mouth daily 150 tablet 11 024 2024 Discontinued Active Problems Problem Noted Date Diagnosed Date Esophageal varices without bleeding (CMS/HCC) Cirrhosis of liver without ascites ([facility]/HCC) 11/2023 Class 3 severe obesity due t o excess calories with serious comorbidity and body mass index (BMI) of 40.0 to 44.9 in adult 05/29/2024 Stage 3 chronic kidney disease 03/06/2023 Assessment & Plan (03/06/2023 5:50 PM CDT): Multifactorial; in part due to diabetic nephropathy; in part secondary to type II hepato-renal syndrome. We will continue to closely monitor the renal function. Closed wedge compression fra cture of T1 vertebra, initial encounter 01/27/2023 Assessment & Plan (03/06/2023 5:49 PM CDT): Issues as outlined elsewhere. 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 On hold for liver transplantation due to humerus and T1 compression fracture. She understands the fractures must be healed before she can go back on the transplant waiting list. With a MELD 3.0 score of 17, she is at a low priority on the wait list, thus, there is ample time to wait for appropriate healing. I think the weight gain is related to an increase in fluid retention. I will increase the diuretics with careful attention to her renal function and electrolytes. The danger of increasing the diuretics is worsening of her underlying renal function. I scheduled her for an ultrasound to screen for hepatocellular carcinoma when she returns for studies in late March,. Once she is cleared for transplant based on healing of the fractures, I will have her return for another visit before placing her on the active wait list. Iron deficiency anemia 11/29/2022 Atrial flutter (CMS/HCC) 10/10/2022 Assessment & Plan (10/12/2022 12:20 PM ART EDUCATOR): Episode of atrial flutter overnight with RVR up to 140s. Patient asymptomatic, normotensive. IV metoprolol X2 given to achieve rate control. Qmh4by0 vasc score of 3. TTE from 09/03 without valvular abnormalities. No new episodes today. Lytes within normal limits. 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 Lovenox is not ideal given her platelet count less than 100. Her INR is too high to consider warfarin. Anemia 10/05/2022 Assessment & Plan (10/11/2022 12:28 PM ART EDUCATOR): - Hgb has down trended from 8 at OSH. A few months ago, hgb was 10-11. Patient denies melena or hematochezia.Last EGD 2019 with gastropathy, but no esopageal varices. No ascites on exam. - She required 1 unit of PRBCs on admit for hgb 6.5 (10/05). - Continue PO PPI daily - Stopped octreotide gtt on 10/08 - Daily CBC, transfuse if Hgb <7. Monitor closely. - EGD 10/10: portal hypertensive gastropathy, no bleeding. - Hgb stable between 7.5-8 Hypertension 10/05/2022 Assessment & Plan (10/11/2022 12:45 PM ART EDUCATOR): -Continue home dose of metoprolol 25mg BID Hepatic encephalopathy 07/31/2022 Assessment & Plan (03/06/2023 5:49 PM CDT): Good control on current medical management. No changes indicated. Assessment & Plan (08/03/2022 1:05 PM ART EDUCATOR): Pt with hx of LYONS cirrhosis presenting with progressively worsening mental status over past several weeks. On initial examination patient was AAOx1, on subsequent exam she is now AAOx2 with appropriate responses. NH3 75. Unfortunately no safe area for bedside diagnostic paracentesis. Slurred speech and concerns for swallowing. GRADUATE INTERN completed swallow study and normal. Head CT: No acute intracranial abnormality. -Awaiting Liver MRI -Increased Lactulose to 4x daily (only 1 stool on 08/02) - Rifaximin and Lactulose (goal 3-5 bowel movements) - Fall precautions. - PT/OT: Home with assistance. Assessment & Plan (08/02/2022 2:34 PM ART EDUCATOR): Pt with hx of LYONS cirrhosis presenting with progressively worsening mental status over past several weeks. On initial examination patient was AAOx1, on subsequent exam she is now AAOx2 with appropriate responses. NH3 75. Unfortunately no safe area for bedside diagnostic paracentesis. Slurred speech and concerns for swallowing. GRADUATE INTERN completed swallow study and normal. Head CT: No acute intracranial abnormality. - Rifaximin and Lactulose (goal 3-5 bowel movements) - Fall precautions. - PT/OT: Home with assistance. - GRADUATE INTERN completed bedside swallow and Normal Assessment & Plan (08/01/2022 3:28 PM ART EDUCATOR): Pt with hx of LYONS cirrhosis presenting with progressively worsening mental status over past several weeks. On initial examination patient was AAOx1, on subsequent exam she is now AAOx2 with appropriate responses. NH3 75. Unfortunately no safe area for bedside diagnostic paracentesis. - Empiric Ceftriaxone. - Rifaximin and Lactulose (goal 3-5 bowel movements) - Will Check Head CT d/t slurred speech and concerns for swallowing. - Fall precautions. - GRADUATE INTERN/PT/OT Consults. Assessment & Plan (08/01/2022 4:16 AM ART EDUCATOR): Pt with hx of LYONS cirrhosis presenting with progressively worsening mental status over past several weeks. On initial examination patient was AAOx1, on subsequent exam she is now AAOx2 with appropriate responses. NH3 75. Unfortunately no safe area for bedside diagnostic paracentesis. Will start empiric ceftriaxone. Continue lactulose, titrate for 3-4 bowel movements. Continue rifaximin Delirium precautions, fall precautions. Touch base with hepatology team in AM Mass of lower lobe of left lung 01/31/2021 Arthritis of right knee 12/13/2020 Mass of lower lobe of right lung 03/14/2018 Cancer Staging:Clinical:Stage Unknown(cT1a, cNX) - Unsigned Monoclonal gammopathy of unknown significance (M CAMILA) 07/26/2016 Lesion of lung 11/16/2015 Lichen planus 06/03/2012 Obstructive sleep apnea Resolved Problems Problem Noted Date Diagnosed Date Resolved Date Chronic liver failure withou t hepatic coma (CMS/HCC) 04/20/2024 05/29/2024 Lymphedema 01/16/2023 07/15/2024 Other ascites 10/22/2022 07/15/2024 Overview (10/22/2022): Added automatically from request for surgery [id number] Volume overload 10/06/2022 05/29/2024 Assessment & Plan (10/10/2022 1:09 PM ART EDUCATOR): In the setting of LYONS cirrhosis. Diuretics had been getting uptitrated over the last couple of months and were held on admission at OSH (10/02) due to TR. Currently with significant volume overload and initially oxygen requirement. - Currently on room air. - Stewart placed, monitor with diuretic trials. Strict I/Os - Nephrology following, see above. - Daily weight. Hyperammonemia 10/04/2022 05/29/2024 BMI 50.0-59.9, adult 10/04/2022 Shortness of breath 10/02/2022 07/15/20 24 Esophageal dysphagia 08/22/2022 Overview (08/22/2022): Added automatically from request for surgery [id number] Portal vein thrombosis 08/01/202208/22 Assessment & Plan (08/03/2022 1:09 PM ART EDUCATOR): -Apixaban 2.5mg BID Assessment & Plan (08/02/2022 2:39 PM ART EDUCATOR): -Apixaban 2.5mg BID Assessment & Plan (08/01/2022 3:27 PM ART EDUCATOR): -Apixaban 2.5mg BID Assessment & Plan (08/01/2022 4:17 AM ART EDUCATOR): Continue home apixaban LYONS (nonalcoholic steatohepatitis) 11/02/2021 07/15/2024 Abnormal mammogram of right breast 11/02/2020 08/22/2022 Preop cardiovascular exam 09/23/2019 Overview (09/23/2019): Added automatically from request for surgery [id number] Colon cancer screening 04/21/201908/22 Overview (04/21/2019): Added automatically from request for surgery [id number] Esophageal varices without bleeding (CMS/HCC) 04/21/20 19 08/22/2022 Overview (04/21/2019): Added automatically from request for surgery [id number] Steatosis of liver 05/20/2017 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 therapy 07/26/2016 08/22/2022 Neutropenia 07/14/2015 07/15/2024 Portal vein thrombosis 07/14/201508/22 BMI 45.0-49.9, adult 11/18/2014 024 Hepatic cirrhosis 05/20/2014 10/05/2022 Abnormal magnetic resonance imaging study 05/20/2014 08/22/2022 Biliary colic 05/10/2014 08/22/2022 Lesion of liver 04/30/2014 08/22/2022 Decreased granulocyte count (CMS/HCC) 01/14/2014 07/15/2024 Lymphopenia 03/17/2013 07/15/2024 Rash 03/25/2012 08/22/2022 DM type 2 (diabetes mellitus, type 2) 05/29/2024 Assessment & Plan (10/12/2022 2:58 PM ART EDUCATOR): Previously on dose reduced insulin regimen at OSH 20u lantus, 7u tid lispro + ssi. - Her blood sugars were initially on the lower side (90-100) in setting of poor po intake and TR. Continue SSI only for now and will uptitrate as needed. - Continue Lantus 10u/daily + lispro 4TID Assessment & Plan (08/03/2022 1:09 PM ART EDUCATOR): Home regimen of toujeo 42 units + SSI. -Lantus, Lispro TID AC and SSI -No Juice Diet -Consistent Carb+ 2gm NA diet. -CTM BGL Assessment & Plan (08/02/2022 2:38 PM ART EDUCATOR): Home regimen of toujeo 42 units + SSI. -Lantus, Lispro TID AC and SSI -No Juice Diet -Consistent Carb+ 2gm NA diet. -CTM BGL Assessment & Plan (08/01/2022 3:26 PM ART EDUCATOR): Home regimen of toujeo 42 units + SSI. Given TR and decreased PO intake, insulin regimen reduced to Lantus 20units. - Continue on 2g Na + DM2 diet - CTM BGL Assessment & Plan (08/01/2022 4:17 AM ART EDUCATOR): Home regimen of toujeo 42 units + SSI Given TR and decreased PO intake, will dose reduce insulin regimen, 20units + SSIand uptitrate as needed Continue on 2g Na + DM2 diet Immunizations Name Administration Dates Next Due Hep B Vaccine 01/22/2024,12/18/2023 Influenza, Quadrivalent, Spl it, Intramuscular 05/01/2019,05/26/2015 Influenza, Quadrivalent, Spl it, Preservative Free, Intramuscular 07/02/2023,04/29/2020,05/01/2019,05/09,05/08/2018,05/23/2017,05/17/2016 Influenza, Trivalent, IM (MDV) 04/28/2021,2013 Influenza, Trivalent, Preser vative Free, Intramuscular 05/29/2013 [employer] (J&J) SARS-CoV-2 Vaccination 10/17/2020 Pneumococcal Conjugate PCV 13 05/26/2015 Pneumococcal Polysaccharide PPV23 03/24/2014 RSV Vaccine, Pref, Recombina nt, Subunit, Adjuvanted, PF, IM (Arexvy) 12/18/2023 Tdap 03/24/2014 ZOSTER Recombinant 02/17/2020,05/29/2019 Social History Tobacco Use Types Packs/Day Years Used Date Smoking Tobacco: Former Cigarettes 0.5 51 1 970 - 2020 Smokeless Tobacco: Never Tobacco Cessation:Counseling Given: Not Answered [facility] Nu[employer]ities Answer Date Recorded In the past 12 months has [email or web address], [employer], [employer], or water [employer] threatened to shut off services in your home? No 08/24/2024 Social Connection and Isolat ion Panel [NHANES] Answer Date Recorded In a typical week, how many times do you talk on the phone with family, friends, or neighbors? More than three times a week 08/24/2024 How often do you get togethe r with friends or relatives? More than three times a week 08/24/2024 How often do you attend chur or amish services? Never 08/24/2024 Do you belong to any clubs o r organizations such as alevism groups, unions, fraternal or athletic groups, or school groups? No 08/24/2024 How often do you attend meet ings of the clubs or organizations you belong to? Never 08/24/2024 Are you , , di vorced, , never , or living with a partner? 08/24/2024 AUDIT-C Answer Date Recorded Q1: How often do you have a drink containing alcohol? Never 08/06/2024 Q2: How many drinks containi ng alcohol do you have on a typical day when you are drinking? Patient does not drink Q3: How often do you have si x or more drinks on one occasion? Never 08/06/2024 Overall Financial Resource Strain (CARDIA) Answe r Date Recorded How hard is it for you to pa y for the very basics like food, housing, medical care, and heating? Not hard at all 08/24/2024 PHQ-2 Answer Date Recorded PHQ-2 Total Score (If total score is 3 or more points, staff should administer the PHQ-9) 0 01/27/2023 Hunger Vital Sign Answer Date Recorded Within the past 12 months, y ou worried that your food would run out before you got the money to buy more. Never true 08/24/19 25 Within the past 12 months, t he food you bought just didn't last and you didn't have money to get more. Never true 08/24/2024 PRAPARE - Transportation Answer Date Re corded In the past 12 months, has l ack of transportation kept you from medical appointments or from getting medications? No 08/12 In the past 12 months, has l ack of transportation kept you from meetings, work, or from getting things needed for daily living? No 08/24/2024 Housing Stability Vital Sign Answer Terrance e Recorded In the last 12 months, was t here a time when you were not able to pay the mortgage or rent on time? No 12/31/2022 In the last 12 months, how many places have you lived? 1 12/31/2022 In the last 12 months, was t here a time when you did not have a steady place to sleep or slept in a [place] (including now)? No 12/31/2022 Housing Stability Vital Sign Answer Terrance e Recorded In the last 12 months, was t here a time when you were not able to pay the mortgage or rent on time? No 08/24/2024 In the past 12 months, how m any times have you moved where you were living? 0 08/24/2024 At any time in the past 12 m [facility], were you homeless or living in a [place] facility (including now)? No 08/24/2024 Personal Safety Answer Date Recorded Have you ever been in or are you currently in a harmful physical or emotional relationship or is someone making you feel afraid or unsafe? 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 file Last Filed Vital Signs Vital Sign Reading Time Taken Comments Blood Pressure 122/66 08/06/2024 3:48 PM ART EDUCATOR Pulse 59 08/06/2024 3:48 PM ART EDUCATOR Temperature 36.5 C (97.7 F) 08/06/2024 3:48 PM ART EDUCATOR Respiratory Rate 18 08/06/2024 3:48 PM ART EDUCATOR Oxygen Saturation 100% 08/06/2024 3:48 PM ART EDUCATOR Inhaled Oxygen Concentration - - Weight 117 kg (258 lb) 08/06/2024 3:48 PM ART EDUCATOR Height 170.2 cm (5' 7.01 ) 08/06/2024 3:48 PM CS T Body Mass Index 40.4 08/06/2024 3:48 PM ART EDUCATOR Plan of Treatment Scheduled Procedures Name Priority Associated Diagnoses Date/Ti me COLONOSCOPY Routine adult health maintenance LYONS (nonalcoholic steatohepatitis) Procedures Procedure Name Priority Date/Time Associated Diagnosis Comments SCAN - LABS 09/07/2024 EGFR Routine 08/27/2024 1:35 PM ART EDUCATOR LYONS (nonalcoholic steatohepatitis) COMPREHENSIVE METABOLIC PANEL Routine 08/27/2024 1:35 PM ART EDUCATOR LYONS (nonalcoholic steatohepatitis) PROTIME-INR Routine 08/27/2024 1:35 PM ART EDUCATOR LYONS (nonalcoholic steatohepatitis) HLA ANTIBODY SCREEN BY PRA OR SAB PER SCHEDULE (CLASS I AND CLASS II) Routine 08/24/2024 10:00 AM ART EDUCATOR ESRD (end stage renal disease) (CMS/HCC) (HCC) SCAN - LABS 08/24/2024 URINALYSIS, MICROSCOPIC ONLY Routine 08/06/2024 5:12 PM ART EDUCATOR Dysuria URINALYSIS AND REFLEX TO MICROSCOPIC AND CULTURE Routine 08/06/2024 5:12 PM ART EDUCATOR Dysuria EGFR Routine 08/06/2024 5:04 PM ART EDUCATOR Hepatic cirrhosis, unspecified hepatic cirrhosis type, unspecified whether ascites present (HCC) Hepatic encephalopathy (HCC) DIFFERENTIAL AUTO Routine 08/06/2024 5:0 4 PM ART EDUCATOR Hepatic cirrhosis, unspecified hepatic cirrhosis type, unspecified whether ascites present (HCC) Hepatic encephalopathy (HCC) CBC WITH AUTO DIFFERENTIAL Routine 08/06/2024 5:04 PM ART EDUCATOR Hepatic cirrhosis, unspecified hepatic cirrhosis type, unspecified whether ascites present (HCC) Hepatic encephalopathy (HCC) COMPREHENSIVE METABOLIC PANEL Routine 08/06/2024 5:04 PM ART EDUCATOR Hepatic cirrhosis, unspecified hepatic cirrhosis type, unspecified whether ascites present (HCC) Hepatic encephalopathy (HCC) BILIRUBIN, DIRECT Routine 08/06/2024 5:0 4 PM ART EDUCATOR Hepatic cirrhosis, unspecified hepatic cirrhosis type, unspecified whether ascites present (HCC) Hepatic encephalopathy (HCC) PROTIME-INR Routine 08/06/2024 5:04 PM ART EDUCATOR Hepatic cirrhosis, unspecified hepatic cirrhosis type, unspecified whether ascites present (HCC) Hepatic encephalopathy (HCC) [id number], TUMOR MARKER Routine 08/06/2024 5:04 PM ART EDUCATOR Hepatic cirrhosis, unspecified hepatic cirrhosis type, unspecified whether ascites present (HCC) Hepatic encephalopathy (HCC) HEMOGLOBIN A1C Routine 08/06/2024 5:04 PM ART EDUCATOR Hepatic encephalopathy (HCC) Type 2 diabetes mellitus with stage 4 chronic kidney disease, with long-term current use of insulin (HCC) BLOOD CULTURE Routine 08/06/2024 5:04 PM ART EDUCATOR Hepatic encephalopathy (HCC) SCAN - LABS 08/03/2024 EGFR Routine 07/30/2024 1:25 PM ART EDUCATOR LYONS (nonalcoholic steatohepatitis) COMPREHENSIVE METABOLIC PANEL Routine 07/30/2024 1:25 PM ART EDUCATOR LYONS (nonalcoholic steatohepatitis) DIFFERENTIAL AUTO Routine 07/30/2024 1:1 0 PM ART EDUCATOR LYONS (nonalcoholic steatohepatitis) CBC WITH AUTO DIFFERENTIAL Routine 07/30/2024 1:10 PM ART EDUCATOR LYONS (nonalcoholic steatohepatitis) PROTIME-INR Routine 07/30/2024 1:10 PM ART EDUCATOR LYONS (nonalcoholic steatohepatitis) HLA ANTIBODY SCREEN - SAB (CLASS I AND CLASS II) Routine 07/20/2024 10:00 AM ART EDUCATOR ESRD (end stage renal disease) (CMS/HCC) (HCC) HLA ANTIBODY SCREEN BY PRA OR SAB PER SCHEDULE (CLASS I AND CLASS II) Routine 07/20/2024 10:00 AM ART EDUCATOR ESRD (end stage renal disease) (CMS/HCC) (HCC) SCAN - LABS 07/20/2024 EGFR Routine 06/30/2024 12:36 PM ART EDUCATOR LYONS (nonalcoholic steatohepatitis) DIFFERENTIAL AUTO Routine 06/30/2024 12: 36 PM ART EDUCATOR LYONS (nonalcoholic steatohepatitis) CBC WITH AUTO DIFFERENTIAL Routine 06/30/2024 12:36 PM ART EDUCATOR LYONS (nonalcoholic steatohepatitis) PROTIME-INR Routine 06/30/2024 12:36 PM ART EDUCATOR LYONS (nonalcoholic steatohepatitis) COMPREHENSIVE METABOLIC PANEL Routine 06/30/2024 12:36 PM ART EDUCATOR LYONS (nonalcoholic steatohepatitis) SCAN - LABS 06/22/2024 PAP AND HIGH RISK HPV, REFLEX TO GENOTYPING Routine 04/28/2024 10:41 AM CDT SCREENING MAMMOGRAM BILATERAL W PAL IP Routine 04/27/2024 1:55 PM CDT LIPID PANEL Routine 04/22/2024 12:58 AM CDT HEPATITIS C ANTIBODY Routine 06/16/2023 6:09 AM ART EDUCATOR COLONOSCOPY 05/30/2022 9:28 AM CDT ALBUMIN CREATININE RATIO, URINE Routine 03/01/2021 2:45 PM CDT Type 2 diabetes mellitus without complication, unspecified whether usp insulin use (HCC) from Last 3 Months or Most Recently Relevant to Health Maintenance Results * SCAN - LABS (09/07/2024) us Provider Scanning Final Result * (ABNORMAL) eGFR (08/27/2024 1:35 PM ART EDUCATOR) eGFR 31(L) >=60 mL/min/1. 73 m2 Comment: Interpretive Data Reference Interval Normal >/= 90 mL/min/1.73m2 Mildly decreased* 60 - 89 mL/min/1.73m2 Mildly to moderately decreased 45 - 59 mL/min/1.73m2 Moderately to severely decreased 30 - 44 mL/min/1.73m2 Severely decreased 15 - 29 mL/min/1.73m2 Kidney Failure < 15 mL/min/1.73m2 *Relative to young adult level Estimated glomerular filtration rate is determined by the 2020 CKD-EPI equation recommended by the National Kidney Foundation (A Unifying Approach to GFR Estimation: Recommendations of the NKF-ASK Task Force on Reassessing the Inclusion of Race in Diagnosing Kidney Disease, JASN 2020). The CKD-EPI equation should not be used for patients with unstable renal function and has not been validated in children and those over 70. Current interpretive data was last reviewed 2021. Blood 08/27/2024 1:35 PM ART EDUCATOR 08/27/2024 1:59 PM ART EDUCATOR Taiwo Vázquez MD LAB BLOOD ORDERABLES Fin al Result [facility] [place] [address] * (ABNORMAL) Protime-INR (08/27/2024 1:35 PM ART EDUCATOR) PT 14.1(H) 9.7 - 13.0 sec INR 1.30(H) 0.90 - 1.20 [facility] Comment: Interpretive data Oral anticoagulant therapeutic ranges: Venous thromboembolism prophylaxis or treatment: 2.0-3.0 CARDIOLOGY Standard range: 2.0-3.0 High-intensity range: 2.5-3.5 Refer to indication-specific guidelines for appropriate target ranges for prosthetic heart valve replacement. Current interpretive data was last revised on 2019. Blood 08/27/2024 1:35 PM ART EDUCATOR 08/27/2024 1:48 PM ART EDUCATOR Taiwo Vázquez MD LAB BLOOD ORDERABLES Fin al Result [facility] Department [place] [address] * (ABNORMAL) Comprehensive metabolic panel (08/27/2024 1:35 PM ART EDUCATOR) Sodium 136 135 - 145 mmol/L Potassium, pl 3.6 3.3 - 4.9 mmol/L [facility] Chloride 101 97 - 110 mmol/L [facility] CO2 28 22 - 32 mmol/L [facility] Anion gap 7 2 - 15 mmol/L [facility] BUN 29(H) 6 - 25 mg/dL [facility] Creatinine 1.81(H) 0.60 - 1.10 mg/dL [facility] Glucose 293(H) 70 - 199 mg/dL [facility] Comment: Interpretive Data Fasting glucose >/= 126 mg/dl is diagnostic for diabetes. Fasting is defined as no caloric intake for at least 8 hours. Fasting glucose between 100 mg/dl to 125 mg/dl is diagnostic of prediabetes. In a patient with classic symptoms of hyperglycemia or hyperglycemic crisis, a random glucose >/= 200 mg/dl is diagnostic for diabetes. In the absence of unequivocal hyperglycemia, results should be confirmed by repeat testing. The classification and Diagnosis of Diabetes Diabetes Care 2022; 46: S19-S40. Current interpretive data was last revised 2022. Calcium 8.9 8.5 - 10.3 mg/dL [facility] Bilirubin, total 2.4(H) 0.1 - 1.2 mg/dL [facility] Protein, pl 6.1(L) 6.5 - 8.5 g/dL [facility] Albumin 3.0(L) 3.5 - 5.0 g/dL [facility] Alk phos 100 40 - 130 Units/L [facility] ALT 21 7 - 45 Units/L [facility] AST 31 10 - 45 Units/L [facility] Blood 08/27/2024 1:3 5 PM ART EDUCATOR 08/27/2024 1:48 PM ART EDUCATOR Taiwo Vázquez MD LAB BLOOD ORDERABLES Fin al Result Performing Organization Address [facility]/ZIP Co de Phone Number [facility] [place] [address] * HLA Antibody Screen by PRA or SAB per Schedule (Class I and Class II) (08/24/2024 10:00 AM ART EDUCATOR) Blood 08/24/2024 10:0 0 AM ART EDUCATOR Narrative [facility] - ART EDUCATOR Sample received in lab and stored. No testing performed at this time. Timothy Pardo MD LAB BLOOD ORDERABL ES Final Result [facility] * SCAN - LABS (08/24/2024) Provider Scanning Final Result * (ABNORMAL) Urinalysis reflex to microscopic and culture Urine (08/06/2024 5:12 PM ART EDUCATOR) Color, ur Straw Yellow Clarity, ur Clear Clear [facility] Specific gravity, ur 1.014 1.003 - 1.030 [facility] pH, urine 6.0 [facility] Comment: Interpretive Data U rine pH is affected by diet, medications, systemic acid-base disturbances, and renal tubular function. pH may affect urinary stone formation. For example, urine pH below 6.0 may help reduce the tendency for calcium phosphate stones and pH greater than 6.0 may reduce the tendency for uric acid stone formation. Source: [facility] [employer] Current Interpretive Data was last revised on 2017 Protein, ur ql Negative Negative [facility] Glucose, ur ql 3+(A) Negative [facility] Ketones, ur Negative Negative [facility] Bilirubin, ur Negative Negative [facility] Blood, ur Negative Negative [facility] Urobilinogen, ur <2.0 <2.0 mg/dL [facility] Nitrite, ur Negative Negative [facility] Leukocyte esterase, ur 2+(A) Negative [facility] UA reflex comment Reflex to microscopic UA will be performed. CHRAISSA SOLER Urine 08/06/2024 5:12 PM ART EDUCATOR 08/06/2024 5:24 PM ART EDUCATOR Taiwo Vázquez MD LAB MICROBIOLOGY - GENER AL ORDERABLES Final Result [facility] [address] [facility]. Department [place] [address] * (ABNORMAL) Urinalysis, microscopic only (08/06/2024 5:12 PM ART EDUCATOR) WBC, ur 6-10(A) 0 - 5 /HPF RBC, ur 3-5(A) 0 - 2 /HPF [facility] Epithelial cells, squamous, ur 1-5 0 - 5 /HPF [facility] Mucous, ur Present(A) [facility] Hyaline casts, ur 11-20(A) 0 - 10 /LPF [facility] Culture Reflex Comment Reflex conditions for urine culture (WBC >10) not met. CHARISSA [facility] Urine 08/06/2024 5:12 PM ART EDUCATOR 08/06/2024 5:24 PM ART EDUCATOR Taiwo Vázquez MD LAB URINE ORDERABLES Fin al Result Performing Organization Address [facility] de Phone Number [facility]ISSA [facility] [address] [facility] [employer] [place], [place] [id number] * (ABNORMAL) eGFR (08/06/2024 5:04 PM ART EDUCATOR) Pathologist [facility] eGFR 34(L) >=60 mL/min/1. 73 m2 Comment: Interpretive Data Reference Interval Normal >/= 90 mL/min/1.73m2 Mildly decreased* 60 - 89 mL/min/1.73m2 Mildly to moderately decreased 45 - 59 mL/min/1.73m2 Moderately to severely decreased 30 - 44 mL/min/1.73m2 Severely decreased 15 - 29 mL/min/1.73m2 Kidney Failure < 15 mL/min/1.73m2 *Relative to young adult level Estimated glomerular filtration rate is determined by the 2020 CKD-EPI equation recommended by the National Kidney Foundation (A Unifying Approach to GFR Estimation: Recommendations of the NKF-ASK Task Force on Reassessing the Inclusion of Race in Diagnosing Kidney Disease, JASN 2020). The CKD-EPI equation should not be used for patients with unstable renal function and has not been validated in children and those over 70. Current interpretive data was last reviewed 2021. Blood 08/06/2024 5:04 PM ART EDUCATOR 08/06/2024 5:24 PM ART EDUCATOR Taiwo Vázquez MD LAB BLOOD ORDERABLES Fin al Result Performing Organization Address [facility] Co de Phone Number [facility]ISSA [facility] [address] [place] [address] * (ABNORMAL) Differential, auto (08/06/2024 5:04 PM ART EDUCATOR) Neutrophil abs 2.8 1.5 - 6.5 K/cumm Imm gran abs 0.0 0.0 - 0.1 K/cumm [facility] Lymphocyte abs 1.3 0.8 - 3.3 K/cumm [facility] Monocyte abs 0.5 0.2 - 0.8 K/cumm [facility] Eosinophil abs 0.9(H) 0.0 - 0.5 K/cumm [facility] Basophil abs 0.0 0.0 - 0.1 K/cumm CHARISSA ELIAS Neutrophil pct 50.9 % CHARISSA ELIAS Comment: Interpretive Data Percent cell count reference ranges are not reported, since discordance with absolute values may lead to misinterpretation of CBC data. Current Interpretive Data was last revised on 2017. Imm gran pct 0.4 % CHARISSA ELIAS Comment: Interpretive Data Percent cell count reference ranges are not reported, since discordance with absolute values may lead to misinterpretation of CBC data. Current Interpretive Data was last revised on 2017. Lymphocyte pct 23.9 % CHARISSA ELIAS Comment: Interpretive Data Percent cell count reference ranges are not reported, since discordance with absolute values may lead to misinterpretation of CBC data. Current Interpretive Data was last revised on 2017. Monocyte pct 8.2 % CHARISSA ELIAS Comment: Interpretive Data Percent cell count reference ranges are not reported, since discordance with absolute values may lead to misinterpretation of CBC data. Current Interpretive Data was last revised on 2017. Eosinophil pct 16.2 % CHARISSA ELIAS Comment: Interpretive Data Percent cell count reference ranges are not reported, since discordance with absolute values may lead to misinterpretation of CBC data. Current Interpretive Data was last revised on 2017. Basophil pct 0.4 % CHARISSA ELIAS Comment: Interpretive Data Percent cell count reference ranges are not reported, since discordance with absolute values may lead to misinterpretation of CBC data. Current Interpretive Data was last revised on 2017. Blood 08/06/2024 5:04 PM ART EDUCATOR 08/06/2024 5:24 PM ART EDUCATOR us Taiwo Vázquez MD LAB BLOOD ORDERABLES Fin al Result [facility]SA [facility] [address] [facility]. Department [place] [address] * (ABNORMAL) CBC with auto differential (08/06/2024 5:04 PM ART EDUCATOR) WBC 5.5 3.8 - 9.9 K/cumm Hgb 12.3 11.9 - 15.5 g/dL [facility] Hct 35.1(L) 35.6 - 45.5 % [facility] Plt 77(L) 150 - 400 K/cumm [facility] MPV 11.6 9.1 - 12.3 fL [facility] RBC 3.82(L) 3.90 - 5.20 M/cumm [facility] MCV 91.9 81.3 - 96.4 fL [facility] MCH 32.2 27.1 - 33.3 pg [facility] MCHC 35.0 32.3 - 35.7 g/dL [facility] RDW CV 15.7(H) 11.1 - 14.9 % [facility] RDW SD 52.0(H) 35.7 - 48.1 fL [facility] NRBC abs 0.00 0.00 - 0.01 K/cumm [facility] Blood 08/06/2024 5:04 PM ART EDUCATOR 08/06/2024 5:24 PM ART EDUCATOR us Taiwo Vázquez MD LAB BLOOD ORDERABLES Fin al Result [facility]ISSA SOLERCH [address] [facility]. [place] [address] * [id number], Tumor Marker (08/06/2024 5:04 PM ART EDUCATOR) Pathologist [facility] alpha Fetoprotein <1.8 <=8.3 ng/mL Comment: Interpretive Data The Becki AFP assay procedure was used. Results from different manufacturers or methods may not be comparable. Serial testing should be performed using the same method. 0-1 month. AFP concentrations may reach or exceed 100,000 ng/mL after depending on gestational age and weight. 1-3 months 50 1000 ng/ml 3-6 months 10 500 ng/ml 6-12 months 3.0 100 ng/ml >1 year 0.0 8.3 ng/ml References Sudhakar Martinez. et al. J. Ped Surg 1978;13:155-156 Bertram Hernandez et al. Clin Chem Lab Med 2018;57:783-797 Katya House et al. Clin Chem 2014;7507-6879. Current interpretive data was last revised 2022. Testing performed by: [facility], [address] [place] [address]., [id number] Blood 08/06/2024 5:04 PM ART EDUCATOR 08/06/2024 8:14 PM ART EDUCATOR Taiwo Vázquez MD LAB BLOOD ORDERABLES Fin al Result Performing Organization Address [facility] de Phone Number CHARISSA [facility] [address] [address] [place] [address] * Blood culture Blood (08/06/2024 5:04 PM ART EDUCATOR) Report Final Report: No growth Comment:Testing performed by : [facility], [address] [place] [address]., [id number] Blood 08/06/2024 5:04 PM ART EDUCATOR 08/07/2024 12:05 PM ART EDUCATOR Narrative CHARISSA [facility] - 08/12/2024 1:01 PM ART EDUCATOR Interpretive Data 1. Blood cultures are incubated and monitored continuously for 5 days (120 hours). The first negative report is issued within 24 hours of receipt in the laboratory. 2. All positive cultures are resulted and called to physicians/care providers as soon as they are detected. 3. A rapid molecular test for organism identification may be performed using the [employer] Blood Culture Identification panel. This assay detects microbial DNA in a blood culture broth. This assay has been cleared by the [place] Food and Drug Administration and its performance characteristics have been verified by the [facility]. Interpretive data was last revised on September 13, 2022. Taiwo Vázquez MD LAB MICROBIOLOGY - GENER AL ORDERABLES Final Result Performing Organization Address [facility] de Phone Number [facility] [address] [facility]. [facility] [place] [address] * (ABNORMAL) Protime-INR (08/06/2024 5:04 PM ART EDUCATOR) PT 14.1(H) 9.7 - 13.0 sec INR 1.30(H) 0.90 - 1.20 CHARISSA ELIAS Comment: Interpretive data Oral anticoagulant therapeutic ranges: Venous thromboembolism prophylaxis or treatment: 2.0-3.0 CARDIOLOGY Standard range: 2.0-3.0 High-intensity range: 2.5-3.5 Refer to indication-specific guidelines for appropriate target ranges for prosthetic heart valve replacement. Current interpretive data was last revised on 2019. Blood 08/06/2024 5:04 PM ART EDUCATOR 08/06/2024 5:24 PM ART EDUCATOR Taiwo Vázquez MD LAB BLOOD ORDERABLES Fin al Result Performing Organization Address [facility] de Phone Number [facility] [address] [facility]. [facility] [place] [address] * (ABNORMAL) Hemoglobin A1c (08/06/2024 5:04 PM ART EDUCATOR) Hgb A1C 8.4(H) 4.0 - 5.6 % Estimated Average Glucose 194 mg/dL CHARISSA SOLER Comment: The ADA recommends reporting an estimated Average Glucose (eAG) with all Hemoglobin A1c results using the equation derived from a study of 507 normal and diabetic adults. Minority populations were underrepresented and children were not included. (Diabetes Care 31:0896-0977, 2008). The eAG is not equivalent to a fasting glucose. Blood 08/06/2024 5:04 PM ART EDUCATOR 08/06/2024 5:24 PM ART EDUCATOR Taiwo Vázquez MD LAB BLOOD ORDERABLES Fin al Result Performing Organization Address [facility] Co de Phone Number [facility] [address] [facility]. [facility] [place] [address] * (ABNORMAL) Bilirubin, direct (08/06/2024 5:04 PM ART EDUCATOR) Bilirubin, direct 0.6(H) 0.1 - 0.3 mg/dL Blood 08/06/2024 5:04 PM ART EDUCATOR 08/06/2024 5:24 PM ART EDUCATOR Taiwo Vázquez MD LAB BLOOD ORDERABLES [facility] al Result [facility] [address] [facility] Department [place] [address] * (ABNORMAL) Comprehensive metabolic panel (08/06/2024 5:04 PM ART EDUCATOR) Pathologist [facility] Sodium 134(L) 135 - 145 mmol/L Potassium, pl 4.2 3.3 - 4.9 mmol/L [facility] Chloride 96(L) 97 - 110 mmol/L [facility] CO2 28 22 - 32 mmol/L [facility] Anion gap 10 2 - 15 mmol/L [facility] BUN 24 6 - 25 mg/dL [facility] Creatinine 1.66(H) 0.60 - 1.10 mg/dL [facility] Glucose 345(H) 70 - 199 mg/dL [facility] Comment: Interpretive Data Fasting glucose >/= 126 mg/dl is diagnostic for diabetes. Fasting is defined as no caloric intake for at least 8 hours. Fasting glucose between 100 mg/dl to 125 mg/dl is diagnostic of prediabetes. In a patient with classic symptoms of hyperglycemia or hyperglycemic crisis, a random glucose >/= 200 mg/dl is diagnostic for diabetes. In the absence of unequivocal hyperglycemia, results should be confirmed by repeat testing. The classification and Diagnosis of Diabetes Diabetes Care 202; 46: S19-S40. Current interpretive data was last revised 2022. Calcium 9.3 8.5 - 10.3 mg/dL [facility] Bilirubin, total 1.8(H) 0.1 - 1.2 mg/dL [facility] Protein, pl 6.5 6.5 - 8.5 g/dL [facility] Albumin 3.1(L) 3.5 - 5.0 g/dL [facility] Alk phos 129 40 - 130 Units/L [facility] ALT 32 7 - 45 Units/L [facility] AST 32 10 - 45 Units/L CHARISSA [facility] Blood 08/06/2024 5:04 PM ART EDUCATOR 08/06/2024 5:24 PM ART EDUCATOR us Taiwo Vázquez MD LAB BLOOD ORDERABLES Fin al Result CHARISSA ELIAS [address] [facility]. [place] [address] * SCAN - LABS (08/03/2024) us Provider Scanning Final Result * (ABNORMAL) eGFR (07/30/2024 1:25 PM ART EDUCATOR) eGFR 36(L) >=60 mL/min/1. 73 m2 Comment: Interpretive Data Reference Interval Normal >/= 90 mL/min/1.73m2 Mildly decreased* 60 - 89 mL/min/1.73m2 Mildly to moderately decreased 45 - 59 mL/min/1.73m2 Moderately to severely decreased 30 - 44 mL/min/1.73m2 Severely decreased 15 - 29 mL/min/1.73m2 Kidney Failure < 15 mL/min/1.73m2 *Relative to young adult level Estimated glomerular filtration rate is determined by the 2020 CKD-EPI equation recommended by the National Kidney Foundation (A Unifying Approach to GFR Estimation: Recommendations of the NKF-ASK Task Force on Reassessing the Inclusion of Race in Diagnosing Kidney Disease, JASN 2020). The CKD-EPI equation should not be used for patients with unstable renal function and has not been validated in children and those over 70. Current interpretive data was last reviewed 2021. Blood 07/30/2024 1:25 PM ART EDUCATOR 07/30/2024 1:39 PM ART EDUCATOR us Taiwo Vázquez MD LAB BLOOD ORDERABLES Fin al Result [facility] [place] [address] * (ABNORMAL) Comprehensive metabolic panel (07/30/2024 1:25 PM ART EDUCATOR) Sodium 133(L) 135 - 145 mmol/L Potassium, pl 4.5 3.3 - 4.9 mmol/L [facility] Chloride 96(L) 97 - 110 mmol/L [facility] CO2 29 22 - 32 mmol/L [facility] Anion gap 8 2 - 15 mmol/L [facility] BUN 31(H) 6 - 25 mg/dL [facility] Creatinine 1.59(H) 0.60 - 1.10 mg/dL [facility] Glucose 327(H) 70 - 199 mg/dL [facility] Comment: Interpretive Data Fasting glucose >/= 126 mg/dl is diagnostic for diabetes. Fasting is defined as no caloric intake for at least 8 hours. Fasting glucose between 100 mg/dl to 125 mg/dl is diagnostic of prediabetes. In a patient with classic symptoms of hyperglycemia or hyperglycemic crisis, a random glucose >/= 200 mg/dl is diagnostic for diabetes. In the absence of unequivocal hyperglycemia, results should be confirmed by repeat testing. The classification and Diagnosis of Diabetes Diabetes Care 202; 46: S19-S40. Current interpretive data was last revised 2022. Calcium 9.7 8.5 - 10.3 mg/dL [facility] Bilirubin, total 2.2(H) 0.1 - 1.2 mg/dL [facility] Protein, pl 6.6 6.5 - 8.5 g/dL [facility] Albumin 3.2(L) 3.5 - 5.0 g/dL [facility] Alk phos 117 40 - 130 Units/L [facility] ALT 36 7 - 45 Units/L [facility] AST 42 10 - 45 Units/L [facility] Blood 07/30/2024 1:25 PM ART EDUCATOR 07/30/2024 1:36 PM ART EDUCATOR us Taiwo Vázquez MD LAB BLOOD ORDERABLES Fin al Result [facility] [place] [address] * (ABNORMAL) Differential, auto (07/30/2024 1:10 PM ART EDUCATOR) Neutrophil abs 2.8 1.5 - 6.5 K/cumm Imm gran abs 0.0 0.0 - 0.1 K/cumm [facility] Lymphocyte abs 1.1 0.8 - 3.3 K/cumm [facility] Monocyte abs 0.5 0.2 - 0.8 K/cumm [facility] Eosinophil abs 0.8(H) 0.0 - 0.5 K/cumm [facility] Basophil abs 0.0 0.0 - 0.1 K/cumm [facility] Neutrophil pct 52.8 % [facility] Comment: Interpretive Data Percent cell count reference ranges are not reported, since discordance with absolute values may lead to misinterpretation of CBC data. Current Interpretive Data was last revised on 2017. Imm gran pct 0.2 % [facility] Comment: Interpretive Data Percent cell count reference ranges are not reported, since discordance with absolute values may lead to misinterpretation of CBC data. Current Interpretive Data was last revised on 2017. Lymphocyte pct 21.2 % [facility] Comment: Interpretive Data Percent cell count reference ranges are not reported, since discordance with absolute values may lead to misinterpretation of CBC data. Current Interpretive Data was last revised on 2017. Monocyte pct 10.1 % [facility] Comment: Interpretive Data Percent cell count reference ranges are not reported, since discordance with absolute values may lead to misinterpretation of CBC data. Current Interpretive Data was last revised on 2017. Eosinophil pct 14.9 % [facility] Comment: Interpretive Data Percent cell count reference ranges are not reported, since discordance with absolute values may lead to misinterpretation of CBC data. Current Interpretive Data was last revised on 2017. Basophil pct 0.8 % [facility] Comment: Interpretive Data Percent cell count reference ranges are not reported, since discordance with absolute values may lead to misinterpretation of CBC data. Current Interpretive Data was last revised on 2017. Blood 07/30/2024 1:10 PM ART EDUCATOR 07/30/2024 1:36 PM ART EDUCATOR Taiwo Vázquez MD LAB BLOOD ORDERABLES Fin al Result Performing Organization Address City/[facility]/ZIP Co de Phone Number [facility] [place] [address] * (ABNORMAL) CBC with auto differential (07/30/2024 1:10 PM ART EDUCATOR) Pathologist [facility] WBC 5.2 3.8 - 9.9 K/cumm Hgb 12.6 11.9 - 15.5 g/dL [facility] Hct 37.1 35.6 - 45.5 % [facility] Plt 64(L) 150 - 400 K/cumm [facility] MPV 12.3 9.1 - 12.3 fL [facility] RBC 4.07 3.90 - 5.20 M/cumm [facility] MCV 91.2 81.3 - 96.4 fL [facility] MCH 31.0 27.1 - 33.3 pg [facility] MCHC 34.0 32.3 - 35.7 g/dL [facility] RDW CV 15.4(H) 11.1 - 14.9 % [facility] RDW SD 51.0(H) 35.7 - 48.1 fL [facility] NRBC abs 0.00 0.00 - 0.01 K/cumm [facility] Blood 07/30/2024 1:10 PM ART EDUCATOR 07/30/2024 1:36 PM ART EDUCATOR Taiwo Vázquez MD LAB BLOOD ORDERABLES Fin al Result Performing Organization Address City/[facility]/ZIP Co de Phone Number [facility] [place] [address] * (ABNORMAL) Protime-INR (07/30/2024 1:10 PM ART EDUCATOR) PT 15.1(H) 9.7 - 13.0 sec INR 1.39(H) 0.90 - 1.20 [facility] Comment: Interpretive data Oral anticoagulant therapeutic ranges: Venous thromboembolism prophylaxis or treatment: 2.0-3.0 CARDIOLOGY Standard range: 2.0-3.0 High-intensity range: 2.5-3.5 Refer to indication-specific guidelines for appropriate target ranges for prosthetic heart valve replacement. Current interpretive data was last revised on 2019. Blood 07/30/2024 1:10 PM ART EDUCATOR 07/30/2024 1:36 PM ART EDUCATOR us Taiwo Vázquze MD LAB BLOOD ORDERABLES Fin al Result [facility] [place] [address] * HLA Antibody Screen by PRA or SAB per Schedule (Class I and Class II) (07/20/2024 10:00 AM ART EDUCATOR) Blood 07/20/2024 10:0 0 AM ART EDUCATOR Narrative [facility] - ART EDUCATOR Sample received in lab. Single Antigen Antibody Screen ordered. us Timothy Pardo MD LAB BLOOD ORDERABL ES Final Result Performing Organization Address City/[facility] Co de Phone Number [facility] * HLA Antibody Screen - SAB (Class I and Class II) (07/20/2024 10:00 AM ART EDUCATOR) Class I Treatment EDTA [facility] Class I Dilution 1:1 [facility] Class I Tested Date 07/22/2024 [facility] Class I Result Negative [facility] Class I CPRA 62 [facility] Class I Increased Risk Bw4 [facility] Class I Low Risk A23; B7, B27, B42, B44, B49, B51, B55, B56, B57, B58, B59, B63, B67, B81, B82, Bw4 [facility] Class I Reportable Comments Bw4 pattern is present. [facility] Class II Treatment EDTA [facility] Class II Dilution 1:1 [facility] Class II Tested Date 07/22/2024 [facility] Class II Result Positive [facility] Class II CPRA 31 [facility] Class II Moderate Risk DR1; DPB1*01:01 [facility] Class II Low Risk DR1, DR10, DR12, DR52 [facility] 07/20/2024 10:0 0 AM ART EDUCATOR 07/23/2024 10:09 AM ART EDUCATOR Narrative [facility] - 07/23/2024 10:09 AM ART EDUCATOR Single-antigen HLA antibody screen is performed on serum samples using a method developed and validated by the [facility] HLA laboratory based on an FDA-approved IVD kit (OneTagcreen Single-Antigen, [employer], [place], [place]). All patient serum samples are pretreated with EDTA before the screen to prevent complement interference. Additional serum treatments, such as adsorption and DTT treatment, may be performed as indicated. Interpretive comments: Low risk: MFI 1457-4601. Moderate risk: MFI 1282-9997. Increased risk: MFI >/= 5000. The presence of an antigen in two or more risk categories may indicate a mixed reactivity pattern among beads of multiple subtypes. Preformed donor-specific antibodies (DSA) with MFI above 2000 are predictive of positive cytotoxicity crossmatch (Hum Immunol 2010;71:268-73. Hum Immunol 2012;73:497- 604) and carry a higher risk of humoral rejection. For our solid-organ transplant programs, unacceptable antigens (UA) for transplant candidates are defined by MFI >/= 2000 with some exceptions. UA are listed at [facility] and used to generate calculated PRA (cPRA) rounded to the nearest integer. In the post-transplant setting, MFI values from donor-specific beads are listed in the DSA report to provide additional information. It is important to note that this test is approved as a qualitative test and the MFI values are not strictly linear. For platelet refractoriness: An empirical cutoff value of MFI >/= 2000 has been used in our center; a higher cutoff value such as 5000 may also be suitable for highly sensitized patients to prioritize the antigens to avoid. Testing performed at the [facility] Laboratory, [address], 5th floor, [place], [address]. [facility] # [id number]. Rani Smith, Ph.D., Labor Specialist, HLA Laboratory Aurelio Palafox M.D., Ph.D., Fire Management Officer, HLA Laboratory Norma Talamantes, Ph.D., [place] Fire Management Officer, [facility] Clinical Laboratories Current methodology and interpretive comments last revised on 09/06/2022. us Timothy Pardo MD LAB BLOOD ORDERABL ES Final Result Performing Organization Address City/[facility]/ZIP Co de Phone Number [facility] * SCAN - LABS (07/20/2024) us Provider Scanning Edited Result - Final * (ABNORMAL) eGFR (06/30/2024 12:36 PM ART EDUCATOR) eGFR 32(L) >=60 mL/min/1. 73 m2 Comment: Interpretive Data Reference Interval Normal >/= 90 mL/min/1.73m2 Mildly decreased* 60 - 89 mL/min/1.73m2 Mildly to moderately decreased 45 - 59 mL/min/1.73m2 Moderately to severely decreased 30 - 44 mL/min/1.73m2 Severely decreased 15 - 29 mL/min/1.73m2 Kidney Failure < 15 mL/min/1.73m2 *Relative to young adult level Estimated glomerular filtration rate is determined by the 2020 CKD-EPI equation recommended by the National Kidney Foundation (A Unifying Approach to GFR Estimation: Recommendations of the NKF-ASK Task Force on Reassessing the Inclusion of Race in Diagnosing Kidney Disease, JASN 2020). The CKD-EPI equation should not be used for patients with unstable renal function and has not been validated in children and those over 70. Current interpretive data was last reviewed 2021. Blood 06/30/2024 12:3 6 PM ART EDUCATOR 06/30/2024 1:06 PM ART EDUCATOR us Taiwo Vázquez MD LAB BLOOD ORDERABLES Fin al Result [facility] [place] [address] * (ABNORMAL) Differential, auto (06/30/2024 12:36 PM ART EDUCATOR) Neutrophil abs 2.7 1.5 - 6.5 K/cumm Imm gran abs 0.0 0.0 - 0.1 K/cumm [facility] Lymphocyte abs 1.0 0.8 - 3.3 K/cumm [facility] Monocyte abs 0.5 0.2 - 0.8 K/cumm [facility] Eosinophil abs 0.7(H) 0.0 - 0.5 K/cumm [facility] Basophil abs 0.0 0.0 - 0.1 K/cumm [facility] Neutrophil pct 54.6 % [facility] Comment: Interpretive Data Percent cell count reference ranges are not reported, since discordance with absolute values may lead to misinterpretation of CBC data. Current Interpretive Data was last revised on 2017. Imm gran pct 0.2 % [facility] Comment: Interpretive Data Percent cell count reference ranges are not reported, since discordance with absolute values may lead to misinterpretation of CBC data. Current Interpretive Data was last revised on 2017. Lymphocyte pct 21.3 % [facility] Comment: Interpretive Data Percent cell count reference ranges are not reported, since discordance with absolute values may lead to misinterpretation of CBC data. Current Interpretive Data was last revised on 2017. Monocyte pct 10.0 % [facility] Comment: Interpretive Data Percent cell count reference ranges are not reported, since discordance with absolute values may lead to misinterpretation of CBC data. Current Interpretive Data was last revised on 2017. Eosinophil pct 13.5 % [facility] Comment: Interpretive Data Percent cell count reference ranges are not reported, since discordance with absolute values may lead to misinterpretation of CBC data. Current Interpretive Data was last revised on 2017. Basophil pct 0.4 % [facility] Comment: Interpretive Data Percent cell count reference ranges are not reported, since discordance with absolute values may lead to misinterpretation of CBC data. Current Interpretive Data was last revised on 2017. Blood 06/30/2024 12:3 6 PM ART EDUCATOR 06/30/2024 12:59 PM ART EDUCATOR Taiwo Vázquez MD LAB BLOOD ORDERABLES Fin al Result Performing Organization Address [facility] Co de Phone Number [facility] [place] [address] * (ABNORMAL) CBC with auto differential (06/30/2024 12:36 PM ART EDUCATOR) WBC 4.9 3.8 - 9.9 K/cumm Hgb 12.5 11.9 - 15.5 g/dL [facility] Hct 37.3 35.6 - 45.5 % [facility] Plt 59(L) 150 - 400 K/cumm [facility] MPV 11.7 9.1 - 12.3 fL [facility] RBC 4.02 3.90 - 5.20 M/cumm [facility] MCV 92.8 81.3 - 96.4 fL [facility] MCH 31.1 27.1 - 33.3 pg [facility] MCHC 33.5 32.3 - 35.7 g/dL [facility] RDW CV 15.4(H) 11.1 - 14.9 % [facility] RDW SD 52.5(H) 35.7 - 48.1 fL [facility] NRBC abs 0.00 0.00 - 0.01 K/cumm [facility] Blood 06/30/2024 12:3 6 PM ART EDUCATOR 06/30/2024 12:59 PM ART EDUCATOR Taiwo Vázquez MD LAB BLOOD ORDERABLES Fin al Result Performing Organization Address City/[facility]/ZIP Co de Phone Number [facility] [place] [address] * (ABNORMAL) Protime-INR (06/30/2024 12:36 PM ART EDUCATOR) PT 13.4(H) 9.7 - 13.0 sec INR 1.24(H) 0.90 - 1.20 [facility] Comment: Interpretive data Oral anticoagulant therapeutic ranges: Venous thromboembolism prophylaxis or treatment: 2.0-3.0 CARDIOLOGY Standard range: 2.0-3.0 High-intensity range: 2.5-3.5 Refer to indication-specific guidelines for appropriate target ranges for prosthetic heart valve replacement. Current interpretive data was last revised on 2019. Blood 06/30/2024 12:3 6 PM ART EDUCATOR 06/30/2024 12:59 PM ART EDUCATOR us Taiwo Vázquez MD LAB BLOOD ORDERABLES Fin al Result [facility] [place] [address] * (ABNORMAL) Comprehensive metabolic panel (06/30/2024 12:36 PM ART EDUCATOR) Sodium 135 135 - 145 mmol/L Potassium, pl 4.4 3.3 - 4.9 mmol/L [facility] Chloride 100 97 - 110 mmol/L [facility] CO2 28 22 - 32 mmol/L [facility] Anion gap 7 2 - 15 mmol/L [facility] BUN 28(H) 6 - 25 mg/dL [facility] Creatinine 1.77(H) 0.60 - 1.10 mg/dL [facility] Glucose 199 70 - 199 mg/dL [facility] Comment: Interpretive Data Fasting glucose >/= 126 mg/dl is diagnostic for diabetes. Fasting is defined as no caloric intake for at least 8 hours. Fasting glucose between 100 mg/dl to 125 mg/dl is diagnostic of prediabetes. In a patient with classic symptoms of hyperglycemia or hyperglycemic crisis, a random glucose >/= 200 mg/dl is diagnostic for diabetes. In the absence of unequivocal hyperglycemia, results should be confirmed by repeat testing. The classification and Diagnosis of Diabetes Diabetes Care 202; 46: S19-S40. Current interpretive data was last revised 2022. Calcium 9.3 8.5 - 10.3 mg/dL [facility] Bilirubin, total 2.0(H) 0.1 - 1.2 mg/dL [facility] Protein, pl 6.4(L) 6.5 - 8.5 g/dL [facility] Albumin 3.2(L) 3.5 - 5.0 g/dL [facility] Alk phos 115 40 - 130 Units/L [facility] ALT 36 7 - 45 Units/L [facility] AST 39 10 - 45 Units/L [facility] Blood 06/30/2024 12:3 6 PM ART EDUCATOR 06/30/2024 12:59 PM ART EDUCATOR Taiwo Vázquez MD LAB BLOOD ORDERABLES Fin al Result [facility] [place] [address] * SCAN - LABS (06/22/2024) Provider Scanning Final Result * Pap and High Risk HPV and Genotyping (Cytology Component) (04/28/2024 10:41 AM CDT) Thin prep (Pap test) 04/28/2024 10:41 AM CDT 04/28/2024 1:00 PM CDT Narrative PATHOLOGY [facility] - 05/04/2024 4:21 PM CDT EPIC results best viewed via link to PDF [facility] [place] [address] Note to Patients: This report may contain a detailed description of human tissue sent by a health care provider to the laboratory for pathologic evaluation. The content of this report is essential for diagnosis and may provide important critical findings. This information may be unfamiliar to patients to review without a medical professional present. It is advised that the patient review this report in the presence of a health care provider who can answer questions and explain the details. CYTOPATHOLOGY REPORT FINAL Patient Name: ALEAH LEVINE Gender: F : 1960 (Age: 63) Address: [address] [place] [id number] Hospital #: [id number] Service: Medical Location: [place] [id number] Patient Type: [facility] Inpatient Taken: 04/28/2024 Received: 04/28/2024 Accessioned: 04/28/2024 Reported: 05/04/2024 Physician(s): Katie Draper M.D. FINAL INTERPRETATION SOURCE OF SPECIMEN Liquid based Thin Prep pap with HPV: STATEMENT OF ADEQUACY - Satisfactory for evaluation - Endocervical cells/transformation zone sample absent GENERAL CATEGORIZATION: - Negative for squamous intraepithelial lesion or malignancy Comments (Normal-Negative for High Risk HPV) HPV HR 16- Not detected HPV HR 18-Not detected HPV HR non 16/18- Not detected Interpretive Data Nucleic acid amplification for detection of high-risk Human Papilloma virus (HPV) is performed by the Becki Ina 6800 HPV test. This assay specifically detects HPV- 16 and HPV-18 genotypes. The following HPV genotypes are detected as high-risk HPV: HPV-31, 33, 35, 39, 45, 51, 52, 56, 58, 59, 66, and 68. This assay has been approved by the [place] Food and Drug Administration for detection of HPV in cervical specimens collected by a physician using an endocervical brush/spatula or cervical broom and placed in the ThinPrep Pap Test PreservCyt collection containers. The performance characteristics of this test have been verified by the [facility] Molecular Infectious Disease laboratory. Correlate with reported cytology results, as applicable. Interpretive data last revised 23 osie/05/04/2024 16:21 JEANNIE Worthington(ASCP) Report Electronically Reviewed and Signed Out By JEANNIE Worthington(ASCP) 05/04/2024 16:21:37 Cervicovaginal Cytology (Pap Test) Disclaimer: The Pap test is a screening test used to detect cervical cancer and its precursors; it is not a diagnostic procedure. False negative and false positive results do occur. Pap test results should be interpreted in the context of pertinent clinical information and biopsy results as indicated. CMS Clinical Laboratory Improvement Amendments (CLIA) mandate that cytologic and histologic results be correlated for laboratory assistant quality manager & improvement standards. FOR ALL HIGH-GRADE CASES we request submission of follow-up histological material and/or reports that have not been previously provided so that we may fulfill said required standards. Gross Description A. Liquid based Thin Prep pap with HPV: Cervical/vaginal - Screening ThinPrep Clinical Diagnosis and History Last Menstrual Period: unk Menstrual History: Post-menopausal The patient is a 63 year old female with NILM 2021. Report Images and scanned documents, if included only viewable in PDF version The performance characteristics of some immunohistochemical stains, in-situ hybridization and fluorescence in-situ hybridization tests and immunophenotyping by flow cytometry cited in this report (if any) were determined by the Surgical Pathology Department at [facility] as part of an ongoing manufacturing quality inspector program and in compliance with federally mandated regulations drawn from the Clinical Laboratory Improvement Act of 1988 (CLIA '88). Some of these tests rely on the use of analyte specific reagents and are subject to specific labeling requirements by the US Food and Drug Administration. Such diagnostic tests may only be performed in a facility that is certified by the Department of Health and Human Services as a high complexity laboratory under CLIA '88. The FDA has determined that such clearance or approval is not necessary. This test is used for clinical purposes. It should not be regarded as investigational or for research. Nevertheless, federal rules concerning the medical use of analyte specific reagents require that the following disclaimer be attached to the report: This test was developed and its performance characteristics determined by the Surgical Pathology Department of [facility]. It has not been cleared or approved by the U. S. Food and Drug Administration. Eladio Carey MD LAB CYTOLOGY ORDERABLES Final Result PATHOLOGY [facility] [address] Floor [place], [place] [phone] * Screening Mammogram Bilateral W Pal (04/27/2024 1:55 PM CDT) Anatomical Region Laterality Modality Breast Bilateral Mammography Narrative 04/27/2024 1:52 PM CDT Mammogram Technique: Bilateral Digital Breast Tomosynthesis, Bilateral C-view 2D Screening mammogram. Views obtained: bilateral craniocaudal and bilateral mediolateral oblique. Computer Aided Detection was performed. Mammogram Findings: The present examination has been compared to prior imaging studies performed at [facility] on 05/15/2021 and 12/06/2021. There are scattered areas of fibroglandular density. There is no suspicious abnormality in either breast. Impression: There is no mammographic evidence of malignancy. Annual screening mammography is recommended. OVERALL FINAL ASSESSMENT: BI-RADS CATEGORY 1: Negative. Procedure Note Alexandra Carballo MD - 04/27/2024 Mammogram Technique: Bilateral Digital Breast Tomosynthesis, Bilateral C-view 2D Screening mammogram. Views obtained: bilateral craniocaudal and bilateral mediolateral oblique. Computer Aided Detection was performed. Mammogram Findings: The present examination has been compared to prior imaging studies performed at [facility] on 05/15/2021 and 12/06/2021. There are scattered areas of fibroglandular density. There is no suspicious abnormality in either breast. Impression: There is no mammographic evidence of malignancy. Annual screening mammography is recommended. OVERALL FINAL ASSESSMENT: BI-RADS CATEGORY 1: Negative. us Benton Tomas MD IMG MAMMO PROCEDURES Fi nal Result * Lipid panel (04/22/2024 12:58 AM CDT) Cholesterol 122 30 - 199 mg/dL Comment: Interpretive Data Ages < or = 19 years Acceptable: <170 mg/dL Borderline high: 170-199 mg/dL High: >or= 200 mg/dL Ages > or = 20 years Desirable: <200 mg/dL Borderline high: 200-239 mg/dL High: >or= 240 mg/dL Literature References: 1. Expert Panel on Integrated Guidelines for Cardiovascular Health and Risk Reduction in Children and Adolescents. Pediatrics 2011;128:S213 2. NCEP Expert Panel. Circulation 2004;110:227 Current Interpretive Data was last revised on 2018. Triglycerides 43 <=149 mg/dL [facility] Comment: Interpretive Data Ages < or = 9 years Acceptable: <75 mg/dL Borderline high: 75-99 mg/dL High: >or= 100 mg/dL Ages 10 to 20 years Acceptable: <90 mg/dL Borderline high: 90-129 mg/dL High: >or= 130 mg/dL Ages > or = 20 years Desirable: <150 mg/dL Borderline high: 150-199 mg/dL High: 200-499 mg/dL Very high: >or= 499 mg/dL Literature References: 1. Expert Panel on Integrated Guidelines for Cardiovascular Health and Risk Reduction in Children and Adolescents. Pediatrics 2011;128:S213 2. NCEP Expert Panel. Circulation 2004;110:227 Current Interpretive Data was last revised on 2018. HDL 64 >=40 mg/dL [facility] Comment: Interpretive Data Ages < or = 19 years Acceptable: >45 mg/dL Borderline low: 40-45 mg/dL Low: <40 mg/dL Ages > or = 20 years Desirable: >or= 60 mg/dL Low: <40 mg/dL Literature References: 1. Expert Panel on Integrated Guidelines for Cardiovascular Health and Risk Reduction in Children and Adolescents. Pediatrics 2011;128:S213 2. NCEP Expert Panel. Circulation 2004;110:227 Current Interpretive Data was last revised on 2018. LDL, calculated 47 <=129 mg/dL [facility] Comment: Interpretive Data Ages < or = 19 years Acceptable: <110 mg/dL Borderline high: 110-129 mg/dL High: >or= 130 mg/dL Ages > or = 20 years Optimal: <100 mg/dL Near optimal: 100-129 mg/dL Borderline high: 130-159 mg/dL High: >160 mg/dL Calculated using the Gavin LDL-C estimating equation. This equation was implemented on 2024. Prior to this date LDL-C was estimated using the Friedewald equation. Literature References: 1. Expert Panel on Integrated Guidelines for Cardiovascular Health and Risk Reduction in Children and Adolescents. Pediatrics 2011;128:S213 2. NCEP Expert Panel. Circulation 2004;110:227 3. Gavin Velasquez et al. SCOTT Cardiol. 2020 December 10;5(5):540-548. doi: 10.1001/jamacardio.2020.0013 Current Interpretive Data was last revised on 2024. Non-HDL Cholesterol 58 mg/dL [facility] Comment: Interpretive Data Ages < or = 19 years Acceptable: <120 mg/dL Borderline high: 120-144 mg/dL High: >145 mg/dL Ages > or = 20 years When triglycerides are >200 mg/dL, Non-HDL cholesterol is a secondary target of therapy with treatment goals that are 30 mg/dL greater than the LDL cholesterol target. Literature References: 1. Expert Panel on Integrated Guidelines for Cardiovascular Health and Risk Reduction in Children and Adolescents. Pediatrics 2011;128:S213 2. NCEP Expert Panel. Circulation 2004;110:227 Current Interpretive Data was last revised on 2018. Chol/HDL ratio 2 [facility] Blood 04/22/2024 12:5 8 AM CDT 04/22/2024 3:00 AM CDT us John Paul Reddy MD LAB BLOOD ORDERABLES Final Resul t [facility] [place] [address] * Hepatitis C antibody Blood (06/16/2023 6:09 AM ART EDUCATOR) Hep C Ab Nonreactive Nonreactive [facility] Comment:Antibodies to HCV no t detected. Does NOT exclude the possibility of recent exposure to HCV. Current interpretive data was last revised on 22 Blood 06/16/2023 6:09 AM ART EDUCATOR 06/16/2023 6:35 AM ART EDUCATOR us Alejandro Frazier MD LAB MICROBIOLOGY - GENERAL ORDERABLES Final Result Performing Organization Address City/[facility]/ZIP Co de Phone Number [facility] [place] [address] * COLONOSCOPY (05/30/2022 9:28 AM CDT) Anatomical Region Laterality Modality Other Narrative Procedure Note Pat Robins MD - 05/30/2022 9:28 AM CDT GI ENDOSCOPY [facility] Patient Name: Aleha Levine Procedure Date: 05/30/2022 9:28 AM Date of : 1960 Admit Type: Outpatient Age: 61 Gender: Female Attending MD: Pat Robins M.D. Room: [facility] ENDOSCOPY ROOM 3 Note Status: Finalized Procedure: Colonoscopy Indications: Screening for colorectal malignant neoplasm,Screening for colorectal malignant neoplasm, inadequate bowel prep on last colonoscopy (more recent than 10 years ago), Last colonoscopy: October 2019 Referring MD: Molina Charles M.D., Faith Licona M.D. Providers: Pat Robins M.D. Medicines: Monitored Anesthesia Care Complications: No immediate complications. Estimated Blood Loss: Estimated blood loss: none. Procedure: Pre-Anesthesia Assessment: - Immediately prior to administration ofmedications, the patient was re-assessed for adequacy to receive sedatives. - The risks and benefits of the procedure and the sedation options and risks were discussed with the patient. All questions were answered and informed consent was obtained. The benefits, risks and alternatives of theprocedure and sedation were discussed and informed consentwas obtained. All questions were answered. Please referto the signed informed consent document in the medical record. The scope was passed under direct vision.The [facility] [id number] endoscope was introducedthrough the anus and advanced to the terminal ileum, with identification of the appendiceal orifice and IC valve. The bowel preparation used was GoLYTELY via split dose instruction. The quality of the bowel preparation was evaluated using the BBPS (BostonBowel Preparation Scale) with scores of: Right Colon = 2 (minor amount of residual staining, small fragmentsof stool and/or opaque liquid, but mucosa seen well), Transverse Colon = 3 (entire mucosa seen well withno residual staining, small fragments of stool oropaque liquid) and Left Colon = 2 (minor amount ofresidual staining, small fragments of stool and/or opaque liquid, but mucosa seen well). The total BBPS score equals 7. The quality of the bowel preparation was good. There was a small area in the cecum and asmall area in the sigmoid colon with solid/pill debristhat could not be completely suctions. Most of the colon was well seen. The terminal ileum, ileocecal valve, appendiceal orifice, and rectum were photographed.The colonoscopy was performed without difficulty. The patient tolerated the procedure well. The qualityof the bowel preparation was good. Findings: A prominent external hemorrhoid was found on perianal exam. The entire examined colon appeared normal on direct and retroflexion views. Impression: - External Hemorrhoid found on perianal exam. - The entire examined colon is normal on direct and retroflexion views. - No specimens collected. Recommendation: - Patient has a contact number available for emergencies. The signs and symptoms of potential delayed complications were discussed with thepatient. Return to normal activities tomorrow. Written discharge instructions were provided to thepatient. - Resume previous diet. - Continue present medications. - Repeat colonoscopy in 10 years forsurveillance. - Return to referring physician in 10 years. Attending Participation: I personally performed the entire procedure. Electronically signed by Pat Robins MD Pat Robins M.D. 05/30/2022 10:31:01 AM . Number of Addenda: 0 Note Initiated On: 05/30/2022 9:28 AM Recognized by the [place] [employer] for promoting quality in endoscopy us Pat Robins MD ENDOSCOPY PROCEDURES Ju l Result * Albumin Creatinine Ratio, Urine (03/01/2021 2:45 PM CDT) Albumin Ur <12.0 mg/L [facility] Comment: Interpretive Data No reference range established. Current interpretive data was last revised 2018. Creatinine Ur 59.5 mg/dL [facility] Comment: Interpretive Data No reference range established. Current interpretive data was last revised 2018. Albumin Creatinine Ratio, Ur <20 1 - 29 mg/g [facility] Urine 03/01/2021 2:45 PM CDT 03/01/2021 3:41 PM CDT Oly Baker MD LAB URINE ORDER RAVEN Final Result [facility] [place] [address] from Last 3 Months or Most Recently Relevant to Health Maintenance Insurance [facility] Member Subscriber Plan / Payer (Ef fective 2018-Present) Name:Aleah Levine Relation to Subscriber:Not on file Subscriber ID:Not on file Payer ID:[id number] (NAIC) Type:[facility] Address: [facility] [id number] ANTHEM ACCESS Member Subscriber Plan / Payer (Ef fective 2018-Present) Name:Aleah Levine Relation to Subscriber:Self Name:ALEAH LEVINE Payer ID:[id number] (NAIC) Type: [employer] Address: [address] ACCESS OOS Member Subscriber Plan / Payer (Ef fective 2021-Present) Name:Aleah Levine Relation to Subscriber:Self Name:Aleah Levine Payer ID:[id number] (NAIC) Type: [employer] Address: [address] [employer] MEDICARE SOLUTIONS MEDICARE SOLUTIONS Member Subscriber Plan / Payer (Ef fective 2024-Present) Name:Aleah Levine Amanda Relation to Subscriber:Self Name:Aleah Levine Amanda Payer ID:[id number] (NAIC) Group ID:Not on file Type:GLOBAL/TRANSPLANT Address: [address] [facility] COMPLEX MEDICAL CONDITIONS [place] [id number] TRANSPLANT [employer] MED[employer] RISK Member Subscriber Plan / Payer (Ef fective 2024-Present) Name:Juliana Levineagnes Patel Relation to Subscriber:Self Name:Aleah Levine Amanda Payer ID:[id number] (NAIC) Type:GLOBAL/TRANSPLANT Address: [address] [facility] COMPLEX MEDICAL CONDITIONS [address] Advance Directives For more information, please contact: [phone] * Full Code (Latest Code Status on File) Date Activated Date Inactivated Comments 04/21/2024 8:02 PM 04/29/2024 8:05 PM * Full Code Date Activated Date Inactivated Comments 06/16/2023 5:52 AM 06/16/2023 6:30 PM * Full Code Date Activated Date Inactivated Comments 01/27/2023 8:35 AM 02/05/2023 7:30 PM * Full Code Date Activated Date Inactivated Comments 01/05/2023 7:39 PM 01/08/2023 4:21 PM * Full Code Date Activated Date Inactivated Comments 12/29/2022 3:22 PM 01/03/2023 6:29 PM Care Teams Electrical Maintenance Worker Relationship Specialty Start Date End Date Maddy Romano MD [address] [place] [address] PCP - General 09/28/16 Manas Ibarra MD [address] [place] [address] Referring Physician Thoracic Surgery 11/05/18 Zion Barton MD [address] [place] [address] Radiation Oncologist Radiation Oncology 05/05/19 Molina Charles MD 1 [facility] [address] [place] [address] Referring Physician Transplant Hepatology 12/15/20 Inés eLmus, TYRA [address] [facility] [address] [place] [address] Flight Engineer Performance Qualified 10/31/21 Karuna Maria OT Occupational Therapist Occupational Therapy 09/20/22 Renu Treviño NP [address] [facility] [address] [place] [address] Nurse Practitioner Radiation Oncology 11/08/22 Eladio Mcrae MD [address] [place], [place] [address] Referring Physician Obstetrics and Gynecology 11/15/22 Tamiko Schroeder, RN [address] [place] [address] Flight Engineer Performance Qualified 04/27/24
--- OUTSIDE RECORDS SUMMARY | 2024-09-21 13:52 | XMS_ITS | Encounter Summary ---
Author Organization [facility] Address [address] [place] [address] Phone Care Team Providers Care Skid Worker Name Role Phone Maddy Romano MD Primary Care Provider Astrid Haq NP Unavailable [phone] Manas Ibarra MD Unavailable Zion Barton MD Unavailable Molina Charles MD Unavailable [phone] Inés Lemus RN Unavailable [phone] Karuna Maria OT Unavailable Unavaila Renu Paul NP Unavailable [phone] Eladio Mcrae MD Unavailable Tamiko Schroeder RN Unavailable [phone] Briana Poe RN Unavailable [phone] Encounter Details Date Type Department Care Team (Late st Contact Info) Description 10/11/2021 Orders Only [facility] Scanning, Provider Social History Tobacco Use Types Packs/Day Years Used Date Smoking Tobacco: Former Cigarettes Q uit: 2010 Smokeless Tobacco: Never Comments No Sex and Gender Information Value Date Recorded Sex Assigned at Not on file 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 Gender Identity Female 11/15/2021 2:30 AM CDT Sexual Orientation Straight 02/02/2020 9: 00 AM CDT 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 of this encounter Plan of Treatment Scheduled Procedures Name Priority Associated Diagnoses Date/Ti me COLONOSCOPY Routine adult health maintenance LYONS (nonalcoholic steatohepatitis) documented as of this encounter Procedures Procedure Name Priority Date/Time Associated Diagnosis Comments SCAN - LABS 10/11/2021 documented in this encounter Results * SCAN - LABS (10/11/2021) us Provider Scanning Final Result documented in this encounter Visit Diagnoses Not on filedocumented in this encounter Additional Health Concerns Infection Onset Date Last Indicated Resolved Time COVID: Suspected 01/05/2023 01/05/2023 01/05/2023 11:12 PM CDT COVID: Suspected 04/21/2024 04/21/2024 04/21/2024 5:57 PM CDT [facility]illance Comment:This flag is used to identify patient who are in house who are being monitored by Infection Prevention. If the patient is discharged and a swab has not been collected, if patient returns to hospital within 7 days a surveillance swab is to be collected (Reach out to IP for order) Patient does NOT need isolation, patient can travel off the floor. 04/22/2024 04/22/2024 05/06/2024 3:05 AM C DT COVID: Suspected 04/24/2024 04/24/2024 04/24/2024 12:54 PM CDT documented as of this encounter Care Teams Skid Worker Relationship Specialty Start Date End Date Maddy Romano MD [address] [place] [address] PCP - General 09/28/16 Astrid Haq NP [address] [place] [address] Nurse Practitioner Radiation Oncology 11/05/18 11/07/22 Manas Ibarra MD [address] [place] [address] Referring Physician Thoracic Surgery 11/05/18 Zion Barton MD [address] [place] [address] Radiation Oncologist Radiation Oncology 05/05/19 Molina Charles MD [address] [facility] [address] [place] [address] Referring Physician Transplant Hepatology 12/15/20 Inés Lemus RN [address] [facility] [address] [place] [address] Instructional Technology Teacher 10/31/21 Karuna Maria OT Occupational Therapist Occupational Therapy 09/20/22 Renu Treviño NP [address] [facility] [address] [place] [address] Nurse Practitioner Radiation Oncology 11/08/22 Eladio Mcrae MD [address] [place], [place] [address] Referring Physician Obstetrics and Gynecology 11/15/22 Tamiko Schroeder RN [address] [place] [address] Instructional Technology Teacher 04/27/24 Briana Poe RN [address] [facility] [address] [place] [address] SHOP Outpatient Microbiology Instructor 04/30/24 05/28/24 documented as of this encounter
--- OUTSIDE RECORDS SUMMARY | 2024-09-21 13:52 | XMS_ITS | Encounter Summary ---
Author Organization [facility] Address [address] [place] [address] Phone Care Team Providers Care Oven Technician Name Role Phone Maddy Romano MD Primary Care Provider Astrid Haq NP Unavailable Manas Ibarra MD Unavailable Zion Barton MD Unavailable Molina Charles MD Unavailable [phone] Inés Lemus RN Unavailable [phone] Karuna Maria OT Unavailable Unavaila Renu Paul NP Unavailable [phone] Eladio Mcrae MD Unavailable Tamiko Schroeder RN Unavailable [phone] Briana Poe RN Unavailable Encounter Details Date Type Department Care Team (Late st Contact Info) Description 06/16/2021 Orders Only [facility] Scanning, Provider Social History Tobacco Use Types Packs/Day Years Used Date Smoking Tobacco: Former Cigarettes Q uit: 2010 Smokeless Tobacco: Never Comments No Sex and Gender Information Value Date Recorded Sex Assigned at Not on file 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 Gender Identity Female 11/15/2021 2:30 AM CDT [...] Date/Time Associated Diagnosis Comments SCAN - LABS 06/16/2021 documented in this encounter Results * SCAN - LABS (06/16/2021) us Provider Scanning Final Result documented in [...] documented as of this encounter Care Teams Oven Technician Relationship Specialty Start Date End Date Maddy Romano MD [address] [place] [address] PCP - General 09/28/16 Astrid Haq NP [address] [place] [address] Nurse Practitioner Radiation Oncology 11/05/18 11/07/22 Manas Ibarra MD [address] [place] [address] Referring Physician Thoracic Surgery 11/05/18 Zion Barton MD [address] [place] [address] Radiation Oncologist Radiation Oncology 05/05/19 Molina Charles MD [address] [facility] [address] [place] [address] Referring Physician Transplant Hepatology 12/15/20 Inés Lemus RN [address] [facility] [address] [place] [address] Stationary Engineer 10/31/21 Karuna Maria OT Occupational Therapist Occupational Therapy 09/20/22 Renu Treviño NP [address] [facility] [place] [facility] [address] [place] [address] Nurse Practitioner Radiation Oncology 11/08/22 Eladio Mcrae MD [address] [place], [place] [address] Referring Physician Obstetrics and Gynecology 11/15/22 Tamiko Schroeder RN [address] [place] [address] Stationary Engineer 04/27/24 Briana Poe RN [address] [facility] [address] [place] [address] SHOP Outpatient Sheet Metal Layout Mechanic 04/30/24 05/28/24 documented as of this encounter
--- OUTSIDE RECORDS SUMMARY | 2024-09-21 13:52 | XMS_ITS | Clinical Summary ---
Author Organization [facility] Address [address] [place] [address] Care Team Providers Care Installment Loan Collector Name Role Phone Maddy Romano MD Primary Care Provider [phone] Active Problems Problem Noted Date Diagnosed Date Lymphedema 01/16/2023 Social History Tobacco Use Types Packs/Day Years Used Date Smoking Tobacco: Never Assessed Comments Unknown Sex and Gender Information Value Date Recorded Sex Assigned at Not on file Legal Sex Female 11:17 AM CDT Gender Identity Not on file Sexual Orientation Not on file Plan of Treatment Health Maintenance Due Date Last Done Comments Cervical Cancer Screening Pap Smear (Age 30 to 64) Every 3 Years 1960 Colorectal Cancer Screening Colonoscopy (10 Years) 1960 Annual Physical 12/18/1963 Cervical Cancer Screening Pap with HPV Testing (Age 30 to 64) Every 5 Years 1990 Cervical Cancer Screening with HPV 1990 Mammogram Screening 2000 DTaP, Tdap and Td Vaccines (2 - Td or Tdap) 03/24/2024 03/24/2014 COVID-19 Vaccine (3 - season) 2024 09/11/2021, 10/17/2020 Influenza Adult (#1) 2024 04/28/2021, 04/29/2020, 05/01/2019, Additional history exists RSV Immunization or 60+ Years (1 - 1-dose 75+ series) 12/18/2035 Pneumococcal Vaccine: Pediatrics (0 to 5 Years) and At-Risk Patients (6 to 64 Years) Aged Out 05/26/2015, 03/24/2014 No longer eligibl e based on patient's age to complete this topic Zoster Vaccines Completed 02/17/2020, 05/29/2019 Hepatitis C Completed 01/05/2023, 12/11, 01/05/2023, Additional history exists Meningococcal B Vaccine Aged Out No l onger eligible based on patient's age to complete this topic Meningococcal Vaccine Aged Out No leo clifton eligible based on patient's age to complete this topic RSV Immunizations Under 20 Months Aged Out No longer eligible based on patient's age to complete this topic Insurance [facility] [place] [id number] Care Teams Installment Loan Collector Relationship Specialty Start Date End Date Maddy Romano MD [address] [place] [address] PCP - General INTERNAL MEDICINE 01/16/23
--- OUTSIDE RECORDS SUMMARY | 2024-09-21 13:52 | XMS_ITS | Encounter Summary ---
Author Organization [facility] Address [address] [place] [address] Phone Care Team Providers Care Serologist Name Role Phone Maddy Romano MD Primary Care Provider Astrid Haq NP Unavailable Manas Ibarra MD Unavailable Zion Barton MD Unavailable Molnia Charles MD Unavailable [phone] Inés Lemus RN Unavailable [phone] Karuna Maria OT Unavailable Unavaila Renu Paul NP Unavailable [phone] Eladio Mcrae MD Unavailable Tamiko Schroeder RN Unavailable [phone] Briana Poe RN Unavailable Encounter Details Date Type Department Care Team (Late st Contact Info) Description 12/25/2019 Orders Only [facility] Scanning, Provider Social History Tobacco Use Types Packs/Day Years Used Date Smoking Tobacco: Former Cigarettes Q uit: 2010 Smokeless Tobacco: Never Comments No Sex and Gender Information Value Date Recorded Sex Assigned at Not on file Legal Sex Female 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 Gender Identity Female 11/15/2021 2:30 AM CDT [...] Date/Time Associated Diagnosis Comments SCAN - LABS 12/25/2019 SCAN - RADIOLOGY/IMAGING 12/24/2019 documented in this encounter Results * SCAN - LABS (12/25/2019) us Provider Scanning Final Result * SCAN - RADIOLOGY/IMAGING (12/24/2019) Anatomical Region Laterality Modality Other us Provider Scanning Final Result documented in this encounter Visit Diagnoses Not on filedocumented in this encounter Additional Health Concerns Infection Onset Date Last Indicated Resolved Time COVID: Suspected 02/15/2021 02/15/2021 02/15/2021 6:07 PM CDT COVID: Suspected 01/05/2023 01/05/2023 01/05/2023 11:12 PM [...] documented as of this encounter Care Teams Serologist Relationship Specialty Start Date End Date Maddy Romano MD [address] [place] [address] PCP - General 09/28/16 Astrid Haq NP [address] [place] [address] Nurse Practitioner Radiation Oncology 11/05/18 11/07/22 Manas Ibarra MD [address] [place] [address] Referring Physician Thoracic Surgery 11/05/18 Zion Barton MD [address] [place] [address] Radiation Oncologist Radiation Oncology 05/05/19 Molina Charles MD [address] [place] [address] [address] [place] [address] Referring Physician Transplant Hepatology 12/15/20 Inés Lemus, RN [address] [facility] [address] [place] [address] Pencil Sorter 10/31/21 Karuna Maria OT Occupational Therapist Occupational Therapy 09/20/22 Renu Treviño NP [address] [facility] [address] [place] [address] Nurse Practitioner Radiation Oncology 11/08/22 Eladio Mcrae MD [address] [place] [address] Referring Physician Obstetrics and Gynecology 11/15/22 Tamiko Schroeder RN [address] [place] [address] Pencil Sorter 04/27/24 Briana Poe, RN [address] [place] [id number] SHOP Outpatient Dietary Supervisor 04/30/24 05/28/24 documented as of this encounter
--- OUTSIDE RECORDS SUMMARY | 2024-09-21 13:52 | XMS_ITS | Clinical Summary ---
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 Name Role Phone Maddy Romano MD Primary Care Provider [phone] Manas Ibarra MD Unavailable Zion Barton MD Unavailable Molina Charles MD Unavailable [phone] Inés Lemus RN Unavailable [phone] Karuna Maria OT Unavailable Unavaila Renu Paul NP Unavailable [phone] Eladio Mcrae MD Unavailable [phone] Tamiko Schroeder RN Unavailable [phone] Allergies Active Allergy Reactions Criticality Noted Date Comments Moxifloxacin Itching Low 10/15/2019 Sulfa (Sulfonamide Antibiotics) Hives Medium Medications metoprolol tartrate (LOPRESSOR) 25 mg immediate release tablet 1 tablet (25 mg total) 2 (two) times a day 021 Active acetaminophen (TYLENOL) 325 mg tabletIndications :Pain Take 2 tablets (650 mg total) by mouth every 8 (eight) hours Active pen needle, diabetic 31 gauge x 10/25 needleIndications :Type 2 diabetes mellitus without complication, 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 200 each 11 Active semaglutide (OZEMPIC) 1 mg/dose (4 mg/3 mL) pen injector injection Inject 1 mg under the skin every 7 days 3 mL 6 Active Additional Information Patient not taking.Reported on 08/06/2024 rifAXIMin (Xifaxan) 550 mg tabletIndications :Hepatic encephalopathy (HCC),Cirrhosis of liver without ascites, unspecified hepatic cirrhosis type (HCC) Take 1 tablet (550 mg total) by mouth 2 (two) times a day 60 tablet 11 Active gabapentin (NEURONTIN) 100 mg capsule 1 capsule (100 mg total) Active prochlorperazine (COMPAZINE) 10 mg tablet Take 1 tablet (10 mg total) by mouth nightly as needed for nausea or vomiting 30 tablet 3 Active insulin lispro (HumaLOG, ADMELOG) 100 unit/mL [...] Sliding Scale Insulin Instructions. 3 mL 3 024 Active lactulose solution 10 gram/15mL Take 30 [...] Units under the skin nightly 15 mL 3 024 2024 Active bumetanide (BUMEX) 1 mg [...] MCG) BY MOUTH DAILY 30 capsule 3 Active blood-glucose sensor (Dexcom G6 Sensor) deviceIndications :Type 2 diabetes mellitus with stage 3a chronic kidney disease, unspecified whether group home insulin use (HCC) Will use 1 sensor every 10 days. 1 box = 3 sensors. 3 each 5 025 Active blood-glucose transmitter (Dexcom G6 Transmitter) deviceIndications :Type 2 diabetes mellitus without complication, unspecified whether group home insulin use (HCC) Will use 1 transmitter [...] bleeding (CMS/HCC) Cirrhosis of liver without ascites (CMS/HCC) 11/2023 Class 3 severe obesity due t [...] 10/10/2022 Assessment & Plan (10/12/2022 12:20 PM LEATHER SCRUBBER): Episode of atrial flutter overnight with RVR up to 140s. Patient asymptomatic, normotensive. IV metoprolol X2 given to achieve rate control. [id number] vasc score of 3. TTE from 09/03 without valvular abnormalities. No new episodes today. Lytes within normal limits. 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 Lovenox is not ideal given her platelet count less than 100. Her INR is too high to consider warfarin. Anemia 10/05/2022 Assessment & Plan (10/11/2022 12:28 PM LEATHER SCRUBBER): - Hgb has down trended from 8 [...] 10/05/2022 Assessment & Plan (10/11/2022 12:45 PM LEATHER SCRUBBER): -Continue home dose of metoprolol 25mg BID Hepatic encephalopathy 07/31/2022 Assessment & Plan (03/06/2023 5:49 PM CDT): Good control on current medical management. No changes indicated. Assessment & Plan (08/03/2022 1:05 PM LEATHER SCRUBBER): Pt with hx of LYONS cirrhosis presenting with progressively worsening mental status over past several weeks. On initial examination patient was AAOx1, on subsequent exam she is now AAOx2 with appropriate responses. NH3 75. Unfortunately no safe area for bedside diagnostic paracentesis. Slurred speech and concerns for swallowing. CAR CLERK PULLMAN completed swallow study and normal. Head CT: No acute intracranial abnormality. -Awaiting Liver MRI -Increased Lactulose to 4x daily (only 1 stool on 08/02) - Rifaximin and Lactulose (goal 3-5 bowel movements) - Fall precautions. - PT/OT: Home with assistance. Assessment & Plan (08/02/2022 2:34 PM LEATHER SCRUBBER): Pt with hx of LYONS cirrhosis presenting with progressively worsening mental status over past several weeks. On initial examination patient was AAOx1, on subsequent exam she is now AAOx2 with appropriate responses. NH3 75. Unfortunately no safe area for bedside diagnostic paracentesis. Slurred speech and concerns for swallowing. CAR CLERK PULLMAN completed swallow study and normal. Head CT: No acute intracranial abnormality. - Rifaximin and Lactulose (goal 3-5 bowel movements) - Fall precautions. - PT/OT: Home with assistance. - CAR CLERK PULLMAN completed bedside swallow and Normal Assessment & Plan (08/01/2022 3:28 PM LEATHER SCRUBBER): Pt with hx of LYONS cirrhosis presenting [...] concerns for swallowing. - Fall precautions. - CAR CLERK PULLMAN/PT/OT Consults. Assessment & Plan (08/01/2022 4:16 AM LEATHER SCRUBBER): Pt with hx of LYONS cirrhosis presenting [...] (10/22/2022): Added automatically from request for surgery [id number] Volume overload 10/06/2022 05/29/2024 Assessment & Plan (10/10/2022 1:09 PM LEATHER SCRUBBER): In the setting of LYONS cirrhosis. Diuretics [...] Hyperammonemia 10/04/2022 05/29/2024 BMI 50.0-59.9, adult 10/04/2022 024 Shortness of breath 10/02/2022 07/15/20 24 Esophageal dysphagia 08/22/2022 024 Overview (08/22/2022): Added automatically from request for surgery [id number] Portal vein thrombosis 08/01/202208/22 Assessment & Plan (08/03/2022 1:09 PM LEATHER SCRUBBER): -Apixaban 2.5mg BID Assessment & Plan (08/02/2022 2:39 PM LEATHER SCRUBBER): -Apixaban 2.5mg BID Assessment & Plan (08/01/2022 3:27 PM LEATHER SCRUBBER): -Apixaban 2.5mg BID Assessment & Plan (08/01/2022 4:17 AM LEATHER SCRUBBER): Continue home apixaban LYONS (nonalcoholic steatohepatitis) 11/02/2021 07/15/2024 Abnormal mammogram of right breast 11/02/2020 08/22/2022 Preop cardiovascular exam 09/23/2019 Overview (09/23/2019): Added automatically from request for surgery [id number] Colon cancer screening 04/21/201908/22 Overview (04/21/2019): Added automatically from request for surgery [id number] Esophageal varices without bleeding (CMS/HCC) 04/21/20 19 08/22/2022 Overview (04/21/2019): Added automatically from request for surgery [id number] 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 - Her blood sugars were initially on the lower side (90-100) in setting of poor po intake and TR. Continue SSI only for now and will uptitrate as needed. - Continue Lantus 10u/daily + lispro 4TID Assessment & Plan (08/03/2022 1:09 PM LEATHER SCRUBBER): Home regimen of toujeo 42 units + SSI. -Lantus, Lispro TID AC and SSI -No Juice Diet -Consistent Carb+ 2gm NA diet. -CTM BGL Assessment & Plan (08/02/2022 2:38 PM LEATHER SCRUBBER): Home regimen of toujeo 42 units + SSI. -Lantus, Lispro TID AC and SSI -No Juice Diet -Consistent Carb+ 2gm NA diet. -CTM BGL Assessment & Plan (08/01/2022 3:26 PM LEATHER SCRUBBER): Home regimen of toujeo 42 units + SSI. Given TR and decreased PO intake, insulin regimen reduced to Lantus 20units. - Continue on 2g Na + DM2 diet - CTM BGL Assessment & Plan (08/01/2022 4:17 AM LEATHER SCRUBBER): Home regimen of toujeo 42 units + SSI Given TR and decreased PO intake, will dose reduce insulin regimen, 20units + SSIand uptitrate as needed Continue on 2g Na + DM2 diet Encounters Date Type Department Care Team Description 09/15/2024 Documentation [facility] [address]th [place] [address] [place] [address] Alexandra Issa RN 09/14/2024 Telephone [facility] [address] Mailstop [phone] [place] [address] Inés Lemus RN 09/07/2024 Orders Only [facility] Scanning, Provider 08/30/2024 Telephone [facility] Trans[facility] Liver [address] Mailstop [phone] [place] [address] Inés Lemus, TYRA 08/28/2024 Documentation [facility] [address] [facility] 12th [place] [address] [place] [address] Alexandra Issa, TYRA 08/27/2024 1:40 PM LEATHER SCRUBBER Lab [facility] [address] [place] [phone] LYONS (nonalcoholic steatohepatitis) 08/25/2024 Documentation [facility] 12th [place] [address] [place] [address] Alexandra Issa, TYRA 08/25/2024 Telephone [facility] Transplant Liver [address] Mailstop [phone] [place] [address] Inés Lemus, TYRA 08/25/2024 Documentation [facility] 12th [place] [address] [place] [address] Alexandra Issa, TYRA 08/24/2024 10:00 AM LEATHER SCRUBBER - 08/24/2024 11:59 PM LEATHER SCRUBBER Hospital Encounter [address] [address] ESRD (end stage renal disease) (CMS/HCC) (HCC) Discharge Disposition: Discharge to home or self care 08/24/2024 9:00 AM LEATHER SCRUBBER Social Work [facility] [place] [address] [facility], 8th Floor, [place] [address] Ragini Garner LCSW 08/24/2024 Orders Only [facility] Scanning, Provider 08/17/2024 Telephone [facility] Transplant Liver [address] Mailstop [phone] [place] [address] Inés Lemus, TYRA 08/07/2024 Telephone [facility] [address] Mailstop [phone] [place] [address] Inés Lemus, TYRA 08/06/2024 4:35 PM LEATHER SCRUBBER Lab [facility] [address] [place] [address] Hepatic encephalopathy (HCC); Type 2 diabetes mellitus with stage 4 chronic kidney disease, with long-term current use of insulin (HCC); Hepatic cirrhosis, unspecified hepatic cirrhosis type, unspecified whether ascites present (HCC); Dysuria 08/06/2024 3:45 PM LEATHER SCRUBBER Office Visit [facility] [address] [place] [address] Medical Office Building [address], [address] [place] [phone] Taiwo Vázquez MD Hepatic cirrhosis, unspecified hepatic [...] LYONS (CMS/HCC) (HCC); Dysuria 08/03/2024 Orders Only [facility] Scanning, Provider 07/31/2024 Documentation [facility] Advanced [facility] 12th [place] [address] [place] [address] Alexandra Issa RN 07/31/2024 Documentation [facility] [address] Mailstop [phone] [place] [address] Chelsea Barker RN 07/31/2024 Orders Only [facility] [address] 12th [place] [address] [place] [address] Alexandra Issa RN 07/30/2024 3:45 PM LEATHER SCRUBBER Lab [facility] ([facility] [address] [place] [phone] ESRD (end stage renal disease) (CMS/HCC) (HCC); LYONS (nonalcoholic steatohepatitis) 07/24/2024 Telephone [facility] [address] [facility] [address] Mailstop [phone] [place] [address] Inés Lemus, TYRA 07/24/2024 Telephone [facility] Trans[facility] Liver [address] [facility] [address] Mailstop [phone] [place] [address] Inés Lemus, RN 07/22/2024 Documentation [facility] [address] [place] [address] 12th [place] [address] [place] [phone] Alexandra Issa RN 07/20/2024 10:00 AM LEATHER SCRUBBER - 07/20/2024 11:59 PM LEATHER SCRUBBER Hospital Encounter [facility] [address] [place] [address] ESRD (end stage renal disease) (CMS/HCC) (HCC) Discharge Disposition: Discharge to home or self care 07/20/2024 Orders Only [facility] Scanning, Provider 07/17/2024 Telephone [facility] Specialty Services [address] [place] [address] Mayra Machuca RN 07/17/2024 Telephone [facility] Transplant Liver [address] [facility] [address] Mailstop [phone] [place] [address] Inés Lemus, TYRA 07/15/2024 10:30 AM LEATHER SCRUBBER Office Visit [facility] [address] [place] [address] 12th [place] [address] [place] [phone] Britany Toribio MD Cirrhosis of liver without ascites, unspecified hepatic cirrhosis type (HCC) (Primary Dx) 07/08/2024 Documentation [facility] [address] [place] [address] [address]th [place] [address] [place] [phone] Alexandra Issa RN 07/03/2024 Telephone [facility] [address] Mailstop [phone] [place] [address] Inés Lemus, TYRA 07/02/2024 Documentation [facility] [address] [facility] Advanced [facility] 12th [place] [address] [place] [address] Alexandra Issa RN 06/30/2024 2:20 PM LEATHER SCRUBBER Lab [facility] ([facility]) [address] [place] [address] LYONS (nonalcoholic steatohepatitis) 06/30/2024 11:10 AM LEATHER SCRUBBER Office Visit [facility] Nephrology [facility] 5th [place] [address] [place] [address] Stage 3b chronic kidney disease (HCC) (Primary Dx); Hypertension, unspecified type; Anemia in stage 3b chronic kidney disease (HCC) 06/23/2024 Documentation [facility] [address] [facility] [address]th [place] [address] [place] [address] Alexandra Issa RN 06/23/2024 Telephone [facility] [address] [facility] [address] Mailstop [phone] [place] [address] Inés Lemus, TYRA 06/23/2024 Orders Only [facility] of [address] [address] Timothy Pardo MD ESRD (end stage renal disease) (CMS/HCC) (HCC) 06/22/2024 Orders Only [facility] Scanning, Provider from Last 3 Months Immunizations Name Administration Dates Next Due Hep B Vaccine 01/22/2024,12/18/2023 Influenza, Quadrivalent, Spl it, Intramuscular 05/01/2019,05/26/2015 Influenza, Quadrivalent, Spl it, Preservative Free, Intramuscular 07/02/2023,04/29/2020,05/01/2019,05/09,05/08/2018,05/23/2017,05/17/2016 Influenza, Trivalent, IM (MDV) 04/28/2021,2013 Influenza, Trivalent, Preser vative Free, Intramuscular 05/29/2013 [employer] ([employer]) SARS-CoV-2 Vaccination 10/17/2020 Pneumococcal Conjugate PCV 13 05/26/2015 Pneumococcal Polysaccharide PPV23 03/24/2014 RSV Vaccine, Pref, Recombina nt, Subunit, Adjuvanted, PF, IM (Arexvy) 12/18/2023 Tdap 03/24/2014 ZOSTER Recombinant 02/17/2020,05/29/2019 Surgical History Surgery Date Site/Laterality Comments BIOPSY LIVER 06/02/2014 N/A SECTION TONSILLECTOMY 08/12/1966 - 08/11/1967 Bilateral CARPAL TUNNEL RELEASE 08/12/1999 - 08/11/2000 Bilateral ENDOMETRIAL ABLATION 08/12/1998 - 08/11/1999 SINUS SURGERY Bilateral x2 US ABDOMEN COMPLETE W LIVER DOPPLER (C) 10/27/2018 R ight ESOPHAGOGASTRODUODENOSCOPY BREAST BIOPSY 12/20/2021 Right COLONOSCOPY Medical History Medical History Date Comments 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, 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, radiation oncology 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 (CMS/HCC) (HCC) portal HTN DM type 2 (diabetes mellitus , type 2) (HCC) HTN (hypertension) Leukopenia Portal vein thrombosis Chronic sinusitis ERNESTINE (obstructive sleep apnea) Chronic kidney disease Hepatic encephalopathy (HCC) fro m a large splenorenal shunt TR (acute kidney injury) (HCC) 10/02/2022 Family History Medical History Relation Name Comments Cancer Father Family history of malignant neoplasm - (Added by TW Conv)/Family history of malignant neoplasm - (Added by TW Conv) Cancer Maternal Grandmother Family history of malignant neoplasm - (Added by TW Conv)/Family history of malignant neoplasm - (Added by TW Conv) Diabetes Maternal Grandmother Family history of diabetes mellitus - (Added by TW Conv)/Family history of diabetes mellitus - (Added by TW Conv) Relation Name Status Comments Father Maternal Grandmother Social History Tobacco Use Types Packs/Day Years Used Date Smoking Tobacco: Former Cigarettes 0.5 51 1 970 - 2020 Smokeless Tobacco: Never Tobacco Cessation:Counseling Given: Not Answered [facility] Utilities Answer Date Recorded In the past 12 months has th e electric, gas, oil, or water company threatened to shut off services in your [...] 08/24/2024 How often do you attend chur ch or adventism services? Never 08/24/2024 Do you belong to any clubs o r organizations such as confucianist groups, unions, fraternal or athletic groups, or [...] place to sleep or slept in a retirement (including now)? No 12/31/2022 Housing Stability Vital Sign Answer Terrance e Recorded In the last 12 months, was t here a time when you were not able to pay the mortgage or rent on time? No 08/24/2024 In the past 12 months, how m any times have you moved where you were living? 0 08/24/2024 At any time in the past 12 m [facility], were you homeless or living in a retirement (including now)? No 08/24/2024 Personal Safety Answer Date Recorded Have you ever been in or are you currently in a harmful physical or emotional relationship or is someone making you feel afraid or unsafe? 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 file Obstetrics History Last Filed Vital Signs Vital Sign Reading Time Taken Comments Blood Pressure 122/66 08/06/2024 3:48 PM LEATHER SCRUBBER Pulse 59 08/06/2024 3:48 PM LEATHER SCRUBBER Temperature 36.5 C (97.7 F) 08/06/2024 3:48 PM LEATHER SCRUBBER Respiratory Rate 18 08/06/2024 3:48 PM LEATHER SCRUBBER Oxygen Saturation 100% 08/06/2024 3:48 PM LEATHER SCRUBBER Inhaled Oxygen Concentration - - Weight 117 kg (258 lb) 08/06/2024 3:48 PM LEATHER SCRUBBER Height 170.2 cm (5' 7.01 ) 08/06/2024 3:48 PM CS T Body Mass Index 40.4 08/06/2024 3:48 PM LEATHER SCRUBBER Plan of Treatment Scheduled Procedures Name Priority Associated Diagnoses Date/Ti me COLONOSCOPY Routine adult health maintenance LYONS (nonalcoholic steatohepatitis) Health Maintenance Due Date Last Done Comments Dilated Eye Exam 1960 Foot Exam 1960 Regular Well Visit/Exam 18-64 1978 Albumin Creatinine Ratio, Urine 03/01/2022 Depression Screening 01/27/2024 01/26/2023, 01/26/2023, 01/05/2023, Additional history exists DTaP/Tdap/Td Vaccine (2 - Td or Tdap) 03/24/2024 03/24/2014 Covid-19 Vaccine (4 - 2023-2 5 season) 2024 07/02/2023, 09/11/2021, 10/17/2020 Hemoglobin A1C 02/04/2025 08/06/2024, 04/12, 02/14/2024, Additional history exists Lipid Panel 04/22/2025 04/22/2024, 03/13, 04/02/2024, Additional history exists Breast Cancer Screening-Mammogram 04/27/2025 024, 12/06/2021 Cervical Cancer Screening 04/28/2025 04/28/2024, eGFR 08/27/2025 08/27/2024, 07/13, 07/30/2024, Additional history exists Pneumococcal vaccine <65 (3 of 3 - PPSV23 or PCV20) 2025 05/26/2015, 03/24/2014 Colon Cancer Screening-Colonoscopy 05/30/2032 05/30/2022, 10/26/2019 Zoster Vaccine Completed 02/17/2020, 05/29/2019 Colon Cancer Screening-CT Colonography Discontinued 05/30/2022, 10/26/2019 Colon Cancer Screening-DNA Stool Discontinued 05/30/20 22, 10/26/2019 Colon Cancer Screening-FIT Discontinued 05/30/2022, Colon Cancer Screening-Sigmoidoscopy Discontinued 05/30/2022, 10/26/2019 Hepatitis C Screening Completed 06/16/2023 , 06/16/2023, 01/05/2023, Additional history exists Influenza Vaccine Completed 05/04/2024, , 04/28/2021, Additional history exists Procedures Procedure Name Priority Date/Time Associated Diagnosis Comments SCAN - LABS 09/07/2024 EGFR Routine 08/27/2024 1:35 PM LEATHER SCRUBBER LYONS (nonalcoholic steatohepatitis) COMPREHENSIVE METABOLIC PANEL Routine 08/27/2024 1:35 PM LEATHER SCRUBBER LYONS (nonalcoholic steatohepatitis) PROTIME-INR Routine 08/27/2024 1:35 PM LEATHER SCRUBBER LYONS (nonalcoholic steatohepatitis) HLA ANTIBODY SCREEN BY PRA OR SAB PER SCHEDULE (CLASS I AND CLASS II) Routine 08/24/2024 10:00 AM LEATHER SCRUBBER ESRD (end stage renal disease) (CMS/HCC) (HCC) SCAN - LABS 08/24/2024 URINALYSIS, MICROSCOPIC ONLY Routine 08/06/2024 5:12 PM LEATHER SCRUBBER Dysuria URINALYSIS AND REFLEX TO MICROSCOPIC AND CULTURE Routine 08/06/2024 5:12 PM LEATHER SCRUBBER Dysuria EGFR Routine 08/06/2024 5:04 PM LEATHER SCRUBBER Hepatic cirrhosis, unspecified hepatic cirrhosis type, unspecified whether ascites present (HCC) Hepatic encephalopathy (HCC) DIFFERENTIAL AUTO Routine 08/06/2024 5:0 4 PM LEATHER SCRUBBER Hepatic cirrhosis, unspecified hepatic cirrhosis type, unspecified whether ascites present (HCC) Hepatic encephalopathy (HCC) CBC WITH AUTO DIFFERENTIAL Routine 08/06/2024 5:04 PM LEATHER SCRUBBER Hepatic cirrhosis, unspecified hepatic cirrhosis type, unspecified whether ascites present (HCC) Hepatic encephalopathy (HCC) COMPREHENSIVE METABOLIC PANEL Routine 08/06/2024 5:04 PM LEATHER SCRUBBER Hepatic cirrhosis, unspecified hepatic cirrhosis type, unspecified whether ascites present (HCC) Hepatic encephalopathy (HCC) BILIRUBIN, DIRECT Routine 08/06/2024 5:0 4 PM LEATHER SCRUBBER Hepatic cirrhosis, unspecified hepatic cirrhosis type, unspecified whether ascites present (HCC) Hepatic encephalopathy (HCC) PROTIME-INR Routine 08/06/2024 5:04 PM LEATHER SCRUBBER Hepatic cirrhosis, unspecified hepatic cirrhosis type, unspecified whether ascites present (HCC) Hepatic encephalopathy (HCC) [id number], TUMOR MARKER Routine 08/06/2024 5:04 PM LEATHER SCRUBBER Hepatic cirrhosis, unspecified hepatic cirrhosis type, unspecified whether ascites present (HCC) Hepatic encephalopathy (HCC) HEMOGLOBIN A1C Routine 08/06/2024 5:04 PM LEATHER SCRUBBER Hepatic encephalopathy (HCC) Type 2 diabetes mellitus with stage 4 chronic kidney disease, with long-term current use of insulin (HCC) BLOOD CULTURE Routine 08/06/2024 5:04 PM LEATHER SCRUBBER Hepatic encephalopathy (HCC) SCAN - LABS 08/03/2024 EGFR Routine 07/30/2024 1:25 PM LEATHER SCRUBBER LYONS (nonalcoholic steatohepatitis) COMPREHENSIVE METABOLIC PANEL Routine 07/30/2024 1:25 PM LEATHER SCRUBBER LYONS (nonalcoholic steatohepatitis) DIFFERENTIAL AUTO Routine 07/30/2024 1:1 0 PM LEATHER SCRUBBER LYONS (nonalcoholic steatohepatitis) CBC WITH AUTO DIFFERENTIAL Routine 07/30/2024 1:10 PM LEATHER SCRUBBER LYONS (nonalcoholic steatohepatitis) PROTIME-INR Routine 07/30/2024 1:10 PM LEATHER SCRUBBER LYONS (nonalcoholic steatohepatitis) HLA ANTIBODY SCREEN - SAB (CLASS I AND CLASS II) Routine 07/20/2024 10:00 AM LEATHER SCRUBBER ESRD (end stage renal disease) (CMS/HCC) (HCC) HLA ANTIBODY SCREEN BY PRA OR SAB PER SCHEDULE (CLASS I AND CLASS II) Routine 07/20/2024 10:00 AM LEATHER SCRUBBER ESRD (end stage renal disease) (CMS/HCC) (HCC) SCAN - LABS 07/20/2024 EGFR Routine 06/30/2024 12:36 PM LEATHER SCRUBBER LYONS (nonalcoholic steatohepatitis) DIFFERENTIAL AUTO Routine 06/30/2024 12: 36 PM LEATHER SCRUBBER LYONS (nonalcoholic steatohepatitis) CBC WITH AUTO DIFFERENTIAL Routine 06/30/2024 12:36 PM LEATHER SCRUBBER LYONS (nonalcoholic steatohepatitis) PROTIME-INR Routine 06/30/2024 12:36 PM LEATHER SCRUBBER LYONS (nonalcoholic steatohepatitis) COMPREHENSIVE METABOLIC PANEL Routine 06/30/2024 12:36 PM LEATHER SCRUBBER LYONS (nonalcoholic steatohepatitis) SCAN - LABS 06/22/2024 PAP AND HIGH RISK HPV, REFLEX TO GENOTYPING Routine 04/28/2024 10:41 AM CDT SCREENING MAMMOGRAM BILATERAL W PAL IP Routine 04/27/2024 1:55 PM CDT LIPID PANEL Routine 04/22/2024 12:58 AM CDT HEPATITIS C ANTIBODY Routine 06/16/2023 6:09 AM LEATHER SCRUBBER COLONOSCOPY 05/30/2022 9:28 AM CDT ALBUMIN CREATININE RATIO, URINE Routine 03/01/2021 2:45 PM CDT Type 2 diabetes mellitus without complication, unspecified whether group home insulin use (HCC) from Last 3 Months or Most Recently Relevant to Health Maintenance Results * SCAN - LABS (09/07/2024) us Provider Scanning Final Result * (ABNORMAL) eGFR (08/27/2024 1:35 PM LEATHER SCRUBBER) eGFR 31(L) >=60 mL/min/1. 73 m2 Comment: [...] last reviewed 2021. Blood 08/27/2024 1:35 PM LEATHER SCRUBBER 08/27/2024 1:59 PM LEATHER SCRUBBER Taiwo Vázquez MD LAB BLOOD ORDERABLES Fin al Result [facility] [place] [address] * (ABNORMAL) Protime-INR (08/27/2024 1:35 PM LEATHER SCRUBBER) PT 14.1(H) 9.7 - 13.0 sec INR 1.30(H) 0.90 - 1.20 [facility] Comment: Interpretive data Oral anticoagulant therapeutic ranges: Venous thromboembolism prophylaxis or treatment: 2.0-3.0 CARDIOLOGY Standard range: 2.0-3.0 High-intensity range: 2.5-3.5 Refer to indication-specific guidelines for appropriate target ranges for prosthetic heart valve replacement. Current interpretive data was last revised on 2019. Blood 08/27/2024 1:35 PM LEATHER SCRUBBER 08/27/2024 1:48 PM LEATHER SCRUBBER Taiwo Vázquez MD LAB BLOOD ORDERABLES [facility] al Result [facility] [place] [address] * (ABNORMAL) Comprehensive metabolic panel (08/27/2024 1:35 PM LEATHER SCRUBBER) Sodium 136 135 - 145 mmol/L Potassium, pl 3.6 3.3 - 4.9 mmol/L [facility] Chloride 101 97 - 110 mmol/L [facility] CO2 28 22 - 32 mmol/L [facility] Anion gap 7 2 - 15 mmol/L [facility] BUN 29(H) 6 - 25 mg/dL [facility] Creatinine 1.81(H) 0.60 - 1.10 mg/dL [facility] Glucose 293(H) 70 - 199 mg/dL [facility] Comment: Interpretive Data Fasting glucose >/= 126 [...] Calcium 8.9 8.5 - 10.3 mg/dL [facility] Bilirubin, total 2.4(H) 0.1 - 1.2 mg/dL [facility] Protein, pl 6.1(L) 6.5 - 8.5 g/dL [facility] Albumin 3.0(L) 3.5 - 5.0 g/dL [facility] Alk phos 100 40 - 130 Units/L [facility] ALT 21 7 - 45 Units/L [facility] AST 31 10 - 45 Units/L [facility] Blood 08/27/2024 1:35 PM LEATHER SCRUBBER 08/27/2024 1:48 PM LEATHER SCRUBBER us Taiwo Vázquez MD LAB BLOOD ORDERABLES Fin al Result [facility] [place] [address] * HLA Antibody Screen by PRA or SAB per Schedule (Class I and Class II) (08/24/2024 10:00 AM LEATHER SCRUBBER) Blood 08/24/2024 10:0 0 AM LEATHER SCRUBBER Narrative [facility] - LEATHER SCRUBBER Sample received in lab and stored. No testing performed at this time. us Timothy Pardo MD LAB BLOOD ORDERABL ES Final Result Performing Organization Address City/[facility]/ZIP Co de Phone Number H[facility] * SCAN - LABS (08/24/2024) us Provider Scanning Final Result * (ABNORMAL) Urinalysis reflex to microscopic and culture Urine (08/06/2024 5:12 PM LEATHER SCRUBBER) Color, ur Straw Yellow Clarity, ur Clear [...] tendency for uric acid stone formation. Source: [email or web address] Current Interpretive Data was last revised on [...] Reflex to microscopic UA will be performed. [facility] Urine 08/06/2024 5:12 PM LEATHER SCRUBBER 08/06/2024 5:24 PM LEATHER SCRUBBER Taiwo Vázquez MD LAB MICROBIOLOGY - GENER AL ORDERABLES Final Result Performing Organization Address [facility] Co sc Phone Number CHARISSA ELIAS [id number] [address] [employer] EngineeringBapt[facility] [place] [address] * (ABNORMAL) Urinalysis, microscopic only (08/06/2024 5:12 PM LEATHER SCRUBBER) WBC, ur 6-10(A) 0 - 5 /HPF RBC, ur 3-5(A) 0 - 2 /HPF [facility] Epithelial cells, squamous, ur 1-5 0 - 5 /HPF [facility] Mucous, ur Present(A) [facility] Hyaline casts, ur 11-20(A) 0 - 10 /LPF [facility] Culture Reflex Comment Reflex conditions for urine culture (WBC >10) not met. [facility] Urine 08/06/2024 5:12 PM LEATHER SCRUBBER 08/06/2024 5:24 PM LEATHER SCRUBBER Taiwo Vázquez MD LAB URINE ORDERABLES Fin al Result Performing Organization Address [facility] de Phone Number CHARISSA SOLERCH [address] [address] [facility] [place] [address] * (ABNORMAL) eGFR (08/06/2024 5:04 PM LEATHER SCRUBBER) eGFR 34(L) >=60 mL/min/1. 73 m2 Comment: [...] last reviewed 2021. Blood 08/06/2024 5:04 PM LEATHER SCRUBBER 08/06/2024 5:24 PM LEATHER SCRUBBER us Taiwo Vázquez MD LAB BLOOD ORDERABLES Fin al Result CHARISSA ELIAS [address] [facility]. [place] [address] * (ABNORMAL) Differential, auto (08/06/2024 5:04 PM LEATHER SCRUBBER) Neutrophil abs 2.8 1.5 - 6.5 K/cumm Imm gran abs 0.0 0.0 - 0.1 K/cumm [facility] Lymphocyte abs 1.3 0.8 - 3.3 K/cumm [facility] Monocyte abs 0.5 0.2 - 0.8 K/cumm [facility] Eosinophil abs 0.9(H) 0.0 - 0.5 K/cumm [facility] Basophil abs 0.0 0.0 - 0.1 K/cumm [facility] Neutrophil pct 50.9 % [facility] Comment: Interpretive Data Percent cell count [...] revised on 2017. Monocyte pct 8.2 % [facility] Comment: Interpretive Data Percent cell count reference ranges are not reported, since discordance with absolute values may lead to misinterpretation of CBC data. Current Interpretive Data was last revised on 2017. Eosinophil pct 16.2 % [facility] Comment: Interpretive Data Percent cell count reference ranges are not reported, since discordance with absolute values may lead to misinterpretation of CBC data. Current Interpretive Data was last revised on 2017. Basophil pct 0.4 % [facility] Comment: Interpretive Data Percent cell count reference ranges are not reported, since discordance with absolute values may lead to misinterpretation of CBC data. Current Interpretive Data was last revised on 2017. Blood 08/06/2024 5:04 PM LEATHER SCRUBBER 08/06/2024 5:24 PM LEATHER SCRUBBER us Taiwo Vázquez MD LAB BLOOD ORDERABLES Fin al Result [facility] [address] [facility]. Department of Laboratories [place], [place] [id number] * (ABNORMAL) CBC with auto differential (08/06/2024 5:04 PM LEATHER SCRUBBER) Pathologist [facility] WBC 5.5 3.8 - 9.9 K/cumm Hgb 12.3 11.9 - 15.5 g/dL [facility] Hct 35.1(L) 35.6 - 45.5 % [facility] Plt 77(L) 150 - 400 K/cumm [facility] MPV 11.6 9.1 - 12.3 fL [facility] RBC 3.82(L) 3.90 - 5.20 M/cumm [facility] MCV 91.9 81.3 - 96.4 fL [facility] MCH 32.2 27.1 - 33.3 pg [facility] MCHC 35.0 32.3 - 35.7 g/dL [facility] RDW CV 15.7(H) 11.1 - 14.9 % [facility] R[facility] SD 52.0(H) 35.7 - 48.1 fL [facility] NRBC abs 0.00 0.00 - 0.01 K/cumm [facility] Blood 08/06/2024 5:04 PM LEATHER SCRUBBER 08/06/2024 5:24 PM LEATHER SCRUBBER Taiwo Vázquez MD LAB BLOOD ORDERABLES Fin al Result Performing Organization Address [facility] de Phone Number [facility] [id number] [place] [address] * [id number], Tumor Marker (08/06/2024 5:04 PM LEATHER SCRUBBER) alpha Fetoprotein <1.8 <=8.3 ng/mL Comment: Interpretive [...] >1 year 0.0 8.3 ng/ml References Sudhakar Y. et al. J. Ped Surg 1978;13:155-156 Bertram S. et al. Clin Chem Lab Med 2018;57:783-797 Katya House et al. Clin Chem 2014;1706-7425. Current interpretive data was last revised 2022. Testing performed by: [facility], [place]., [address] Blood 08/06/2024 5:04 PM LEATHER SCRUBBER 08/06/2024 8:14 PM LEATHER SCRUBBER Taiwo Vázquez MD LAB BLOOD ORDERABLES Fin al Result Performing Organization Address [facility] Co de Phone Number [facility] [address] [employer] [place] [address] * Blood culture Blood (08/06/2024 5:04 PM LEATHER SCRUBBER) Report Final Report: No growth Comment:Testing performed by : [facility], [place]., [address] Blood 08/06/2024 5:04 PM LEATHER SCRUBBER 08/07/2024 12:05 PM LEATHER SCRUBBER Narrative CHARISSA ELIAS - 08/12/2024 1:01 PM LEATHER SCRUBBER Interpretive Data 1. Blood cultures are incubated and monitored continuously for 5 days (120 hours). The first negative report is issued within 24 hours of receipt in the laboratory. 2. All positive cultures are resulted and called to physicians/care providers as soon as they are detected. 3. A rapid molecular test for organism identification may be performed using the InboxFever Blood Culture Identification panel. This assay detects microbial DNA in a blood culture broth. This assay has been cleared by the [place] Food and Drug Administration and its performance characteristics have been verified by the [facility]. Interpretive data was last revised on September 13, 2022. Taiwo Vázquez MD LAB MICROBIOLOGY - [facility] AL ORDERABLES Final Result CHARISSA DUNENWCH [address] [facility] [address] * (ABNORMAL) Protime-INR (08/06/2024 5:04 PM LEATHER SCRUBBER) PT 14.1(H) 9.7 - 13.0 sec INR 1.30(H) 0.90 - 1.20 [facility] Comment: Interpretive data Oral anticoagulant therapeutic ranges: Venous thromboembolism prophylaxis or treatment: 2.0-3.0 CARDIOLOGY Standard range: 2.0-3.0 High-intensity range: 2.5-3.5 Refer to indication-specific guidelines for appropriate target ranges for prosthetic heart valve replacement. Current interpretive data was last revised on 2019. Blood 08/06/2024 5:04 PM LEATHER SCRUBBER 08/06/2024 5:24 PM LEATHER SCRUBBER Taiwo Vázquez MD LAB BLOOD ORDERABLES Fin al Result Performing Organization Address [facility] de Phone Number CHARISSA DUNNECH [id number] [facility] [place] [address] * (ABNORMAL) Hemoglobin A1c (08/06/2024 5:04 PM LEATHER SCRUBBER) Hgb A1C 8.4(H) 4.0 - 5.6 % Estimated Average Glucose 194 mg/dL CHARISSA ELIAS Comment: The ADA recommends reporting an estimated Average Glucose (eAG) with all Hemoglobin A1c results using the equation derived from a study of 507 normal and diabetic adults. Minority populations were underrepresented and children were not included. (Diabetes Care 31:3076-3417, 2008). The eAG is not equivalent to a fasting glucose. Blood 08/06/2024 5:04 PM LEATHER SCRUBBER 08/06/2024 5:24 PM LEATHER SCRUBBER Taiwo Vázquez MD LAB BLOOD ORDERABLES Fin al Result Performing Organization Address [facility] Phone Number [facility] [id number] [facility] [place] [address] * (ABNORMAL) Bilirubin, direct (08/06/2024 5:04 PM LEATHER SCRUBBER) Bilirubin, direct 0.6(H) 0.1 - 0.3 mg/dL Blood 08/06/2024 5:04 PM LEATHER SCRUBBER 08/06/2024 5:24 PM LEATHER SCRUBBER Taiwo Vázquez MD LAB BLOOD ORDERABLES Fin al Result Performing Organization Address [facility] de Phone Number CHARISSA DUNNECH [address] [facility] [place] [address] * (ABNORMAL) Comprehensive metabolic panel (08/06/2024 5:04 PM LEATHER SCRUBBER) Sodium 134(L) 135 - 145 mmol/L Potassium, pl 4.2 3.3 - 4.9 mmol/L [facility] Chloride 96(L) 97 - 110 mmol/L [facility] CO2 28 22 - 32 mmol/L [facility] Anion gap 10 2 - 15 mmol/L [facility] BUN 24 6 - 25 mg/dL [facility] Creatinine 1.66(H) 0.60 - 1.10 mg/dL [facility] Glucose 345(H) 70 - 199 mg/dL [facility] Comment: Interpretive Data Fasting glucose >/= 126 [...] classification and Diagnosis of Diabetes Diabetes Care 2021; 46: S19-S40. Current interpretive data was last revised 2022. Calcium 9.3 8.5 - 10.3 mg/dL [facility] Bilirubin, total 1.8(H) 0.1 - 1.2 mg/dL [facility] Protein, pl 6.5 6.5 - 8.5 g/dL [facility] Albumin 3.1(L) 3.5 - 5.0 g/dL [facility] Alk phos 129 40 - 130 Units/L [facility] ALT 32 7 - 45 Units/L [facility] AST 32 10 - 45 Units/L [facility] Blood 08/06/2024 5:04 PM LEATHER SCRUBBER 08/06/2024 5:24 PM LEATHER SCRUBBER Taiwo Vázquez MD LAB BLOOD ORDERABLES Fin al Result CHARISSA ELIAS [address] [facility]. [place] [address] * SCAN - LABS (08/03/2024) us Provider Scanning Final Result * (ABNORMAL) eGFR (07/30/2024 1:25 PM LEATHER SCRUBBER) eGFR 36(L) >=60 mL/min/1. 73 m2 Comment: [...] last reviewed 2021. Blood 07/30/2024 1:25 PM LEATHER SCRUBBER 07/30/2024 1:39 PM LEATHER SCRUBBER Taiwo Vázquez MD LAB BLOOD ORDERABLES Fin al Result [facility] [place] [address] * (ABNORMAL) Comprehensive metabolic panel (07/30/2024 1:25 PM LEATHER SCRUBBER) Sodium 133(L) 135 - 145 mmol/L Potassium, pl 4.5 3.3 - 4.9 mmol/L [facility] Chloride 96(L) 97 - 110 mmol/L [facility] CO2 29 22 - 32 mmol/L [facility] Anion gap 8 2 - 15 mmol/L [facility] BUN 31(H) 6 - 25 mg/dL [facility] Creatinine 1.59(H) 0.60 - 1.10 mg/dL [facility] Glucose 327(H) 70 - 199 mg/dL [facility] Comment: Interpretive Data Fasting glucose >/= 126 [...] classification and Diagnosis of Diabetes Diabetes Care 2021; 46: S19-S40. Current interpretive data was last revised 2022. Calcium 9.7 8.5 - 10.3 mg/dL [facility] Bilirubin, total 2.2(H) 0.1 - 1.2 mg/dL [facility] Protein, pl 6.6 6.5 - 8.5 g/dL [facility] Albumin 3.2(L) 3.5 - 5.0 g/dL [facility] Alk phos 117 40 - 130 Units/L [facility] ALT 36 7 - 45 Units/L [facility] AST 42 10 - 45 Units/L [facility] Blood 07/30/2024 1:25 PM LEATHER SCRUBBER 07/30/2024 1:36 PM LEATHER SCRUBBER us Taiwo Vázquez MD LAB BLOOD ORDERABLES Fin al Result [facility] [place] [address] * (ABNORMAL) Differential, auto (07/30/2024 1:10 PM LEATHER SCRUBBER) Neutrophil abs 2.8 1.5 - 6.5 K/cumm Imm gran abs 0.0 0.0 - 0.1 K/cumm [facility] Lymphocyte abs 1.1 0.8 - 3.3 K/cumm [facility] Monocyte abs 0.5 0.2 - 0.8 K/cumm [facility] Eosinophil abs 0.8(H) 0.0 - 0.5 K/cumm [facility] Basophil abs 0.0 0.0 - 0.1 K/cumm [facility] Neutrophil pct 52.8 % [facility] Comment: Interpretive Data Percent cell count reference ranges are not reported, since discordance with absolute values may lead to misinterpretation of CBC data. Current Interpretive Data was last revised on 2017. Imm gran pct 0.2 % [facility] Comment: Interpretive Data Percent cell count reference ranges are not reported, since discordance with absolute values may lead to misinterpretation of CBC data. Current Interpretive Data was last revised on 2017. Lymphocyte pct 21.2 % [facility] Comment: Interpretive Data Percent cell count reference ranges are not reported, since discordance with absolute values may lead to misinterpretation of CBC data. Current Interpretive Data was last revised on 2017. Monocyte pct 10.1 % [facility] Comment: Interpretive Data Percent cell count reference ranges are not reported, since discordance with absolute values may lead to misinterpretation of CBC data. Current Interpretive Data was last revised on 2017. Eosinophil pct 14.9 % [facility] Comment: Interpretive Data Percent cell count reference ranges are not reported, since discordance with absolute values may lead to misinterpretation of CBC data. Current Interpretive Data was last revised on 2017. Basophil pct 0.8 % [facility] Comment: Interpretive Data Percent cell count reference ranges are not reported, since discordance with absolute values may lead to misinterpretation of CBC data. Current Interpretive Data was last revised on 2017. Blood 07/30/2024 1:10 PM LEATHER SCRUBBER 07/30/2024 1:36 PM LEATHER SCRUBBER us Taiwo Vázquez MD LAB BLOOD ORDERABLES Fin al Result [facility] [place] [address] * (ABNORMAL) CBC with auto differential (07/30/2024 1:10 PM LEATHER SCRUBBER) WBC 5.2 3.8 - 9.9 K/cumm Hgb 12.6 11.9 - 15.5 g/dL [facility] Hct 37.1 35.6 - 45.5 % [facility] Plt 64(L) 150 - 400 K/cumm [facility] MPV 12.3 9.1 - 12.3 fL [facility] RBC 4.07 3.90 - 5.20 M/cumm [facility] MCV 91.2 81.3 - 96.4 fL [facility] MCH 31.0 27.1 - 33.3 pg [facility] MCHC 34.0 32.3 - 35.7 g/dL [facility] RDW CV 15.4(H) 11.1 - 14.9 % [facility] RDW SD 51.0(H) 35.7 - 48.1 fL [facility] NRBC abs 0.00 0.00 - 0.01 K/cumm [facility] Blood 07/30/2024 1:10 PM LEATHER SCRUBBER 07/30/2024 1:36 PM LEATHER SCRUBBER Taiwo Vázquez MD LAB BLOOD ORDERABLES Fin al Result Performing Organization Address [facility] de Phone Number [facility] [place] [address] * (ABNORMAL) Protime-INR (07/30/2024 1:10 PM LEATHER SCRUBBER) PT 15.1(H) 9.7 - 13.0 sec INR 1.39(H) 0.90 - 1.20 [facility] Comment: Interpretive data Oral anticoagulant therapeutic ranges: Venous thromboembolism prophylaxis or treatment: 2.0-3.0 CARDIOLOGY Standard range: 2.0-3.0 High-intensity range: 2.5-3.5 Refer to indication-specific guidelines for appropriate target ranges for prosthetic heart valve replacement. Current interpretive data was last revised on 2019. Blood 07/30/2024 1:10 PM LEATHER SCRUBBER 07/30/2024 1:36 PM LEATHER SCRUBBER Taiwo Vázquez MD LAB BLOOD ORDERABLES Fin al Result Performing Organization Address [facility]/State/ZIP Co de Phone Number [facility] [place] [address] * HLA Antibody Screen by PRA or SAB per Schedule (Class I and Class II) (07/20/2024 10:00 AM LEATHER SCRUBBER) Blood 07/20/2024 10:0 0 AM LEATHER SCRUBBER Narrative HISTOTR[facility] - LEATHER SCRUBBER Sample received in lab. Single Antigen Antibody Screen ordered. Timothy Pardo MD LAB BLOOD ORDERABL ES Final Result [facility] * HLA Antibody Screen - SAB (Class I and Class II) (07/20/2024 10:00 AM LEATHER SCRUBBER) Class I Treatment EDTA [facility] Class I [...] DR12, DR52 [facility] 07/20/2024 10:0 0 AM LEATHER SCRUBBER 07/23/2024 10:09 AM LEATHER SCRUBBER Narrative [facility] - 07/23/2024 10:09 AM LEATHER SCRUBBER Single-antigen HLA antibody screen is performed on serum samples using a method developed and validated by the [facility] laboratory based on an FDA-approved IVD kit (LABScreen Single-Antigen, [employer], [place], [place]). All patient serum samples are pretreated with EDTA before the screen to prevent complement interference. Additional serum treatments, such as adsorption and DTT treatment, may be performed as indicated. Interpretive comments: Low risk: MFI [id number]. Moderate risk: MFI [id number]. Increased risk: MFI >/= 5000. The presence [...] antigens to avoid. Testing performed at the [facility], [address] [place] [address], 5th floor, [place], [address]. IA # [id number]. Rani Smith, Ph.D., Operations Team Leader, [facility] Aurelio Palafox M.D., Ph.D., Director Digital Advertising, [facility] Norma Talamantes, Ph.D., CLIA Director Digital Advertising, [facility] Current methodology and interpretive comments last revised on 09/06/2022. us Timothy Pardo MD LAB BLOOD ORDERABL ES Final Result [facility] * SCAN - LABS (07/20/2024) us Provider Scanning Edited Result - Final * (ABNORMAL) eGFR (06/30/2024 12:36 PM LEATHER SCRUBBER) Pathologist [facility] eGFR 32(L) >=60 mL/min/1. 73 m2 Comment: [...] reviewed 2021. Blood 06/30/2024 12:3 6 PM LEATHER SCRUBBER 06/30/2024 1:06 PM LEATHER SCRUBBER Taiwo Vázquez MD LAB BLOOD ORDERABLES [facility] al Result [facility] [place] [address] * (ABNORMAL) Differential, auto (06/30/2024 12:36 PM LEATHER SCRUBBER) Pathologist [facility] Neutrophil abs 2.7 1.5 - 6.5 K/cumm Imm gran abs 0.0 0.0 - 0.1 K/cumm [facility] Lymphocyte abs 1.0 0.8 - 3.3 K/cumm [facility] Monocyte abs 0.5 0.2 - 0.8 K/cumm [facility] Eosinophil abs 0.7(H) 0.0 - 0.5 K/cumm [facility] Basophil abs 0.0 0.0 - 0.1 K/cumm [facility] Neutrophil pct 54.6 % [facility] Comment: Interpretive Data Percent cell count reference ranges are not reported, since discordance with absolute values may lead to misinterpretation of CBC data. Current Interpretive Data was last revised on 2017. Imm gran pct 0.2 % [facility] Comment: Interpretive Data Percent cell count reference ranges are not reported, since discordance with absolute values may lead to misinterpretation of CBC data. Current Interpretive Data was last revised on 2017. Lymphocyte pct 21.3 % [facility] Comment: Interpretive Data Percent cell count reference ranges are not reported, since discordance with absolute values may lead to misinterpretation of CBC data. Current Interpretive Data was last revised on 2017. Monocyte pct 10.0 % [facility] Comment: Interpretive Data Percent cell count reference ranges are not reported, since discordance with absolute values may lead to misinterpretation of CBC data. Current Interpretive Data was last revised on 2017. Eosinophil pct 13.5 % [facility] Comment: Interpretive Data Percent cell count reference ranges are not reported, since discordance with absolute values may lead to misinterpretation of CBC data. Current Interpretive Data was last revised on 2017. Basophil pct 0.4 % [facility] Comment: Interpretive Data Percent cell count reference ranges are not reported, since discordance with absolute values may lead to misinterpretation of CBC data. Current Interpretive Data was last revised on 2017. Blood 06/30/2024 12:3 6 PM LEATHER SCRUBBER 06/30/2024 12:59 PM LEATHER SCRUBBER us Taiwo Vázquez MD LAB BLOOD ORDERABLES Fin al Result [facility] Department [place] [address] * (ABNORMAL) CBC with auto differential (06/30/2024 12:36 PM LEATHER SCRUBBER) WBC 4.9 3.8 - 9.9 K/cumm Hgb 12.5 11.9 - 15.5 g/dL [facility] Hct 37.3 35.6 - 45.5 % [facility] Plt 59(L) 150 - 400 K/cumm [facility] MPV 11.7 9.1 - 12.3 fL [facility] RBC 4.02 3.90 - 5.20 M/cumm [facility] MCV 92.8 81.3 - 96.4 fL [facility] MCH 31.1 27.1 - 33.3 pg [facility] MCHC 33.5 32.3 - 35.7 g/dL [facility] RDW CV 15.4(H) 11.1 - 14.9 % [facility] RDW SD 52.5(H) 35.7 - 48.1 fL [facility] NRBC abs 0.00 0.00 - 0.01 K/cumm [facility] Blood 06/30/2024 12:3 6 PM LEATHER SCRUBBER 06/30/2024 12:59 PM LEATHER SCRUBBER Taiwo Vázquez MD LAB BLOOD ORDERABLES Fin al Result Performing Organization Address [facility] de Phone Number [facility] [place] [address] * (ABNORMAL) Protime-INR (06/30/2024 12:36 PM LEATHER SCRUBBER) [facility] PT 13.4(H) 9.7 - 13.0 sec INR 1.24(H) 0.90 - 1.20 [facility] Comment: Interpretive data Oral anticoagulant therapeutic ranges: Venous thromboembolism prophylaxis or treatment: 2.0-3.0 CARDIOLOGY Standard range: 2.0-3.0 High-intensity range: 2.5-3.5 Refer to indication-specific guidelines for appropriate target ranges for prosthetic heart valve replacement. Current interpretive data was last revised on 2019. Blood 06/30/2024 12:3 6 PM LEATHER SCRUBBER 06/30/2024 12:59 PM LEATHER SCRUBBER Taiwo Vázquez MD LAB BLOOD ORDERABLES Fin al Result Performing Organization Address [facility] de Phone Number [facility] [place] [address] * (ABNORMAL) Comprehensive metabolic panel (06/30/2024 12:36 PM LEATHER SCRUBBER) Sodium 135 135 - 145 mmol/L Potassium, pl 4.4 3.3 - 4.9 mmol/L [facility] Chloride 100 97 - 110 mmol/L [facility] CO2 28 22 - 32 mmol/L [facility] Anion gap 7 2 - 15 mmol/L [facility] BUN 28(H) 6 - 25 mg/dL [facility] Creatinine 1.77(H) 0.60 - 1.10 mg/dL [facility] Glucose 199 70 - 199 mg/dL [facility] Comment: Interpretive Data Fasting glucose >/= 126 [...] classification and Diagnosis of Diabetes Diabetes Care 2021; 46: S19-S40. Current interpretive data was last revised 2022. Calcium 9.3 8.5 - 10.3 mg/dL [facility] Bilirubin, total 2.0(H) 0.1 - 1.2 mg/dL [facility] Protein, pl 6.4(L) 6.5 - 8.5 g/dL [facility] Albumin 3.2(L) 3.5 - 5.0 g/dL [facility] Alk phos 115 40 - 130 Units/L [facility] ALT 36 7 - 45 Units/L [facility] AST 39 10 - 45 Units/L [facility] Blood 06/30/2024 12:3 6 PM LEATHER SCRUBBER 06/30/2024 12:59 PM LEATHER SCRUBBER us Taiwo Vázquez MD LAB BLOOD ORDERABLES Fin al Result [facility] Department [place] [address] * SCAN - LABS (06/22/2024) us Provider Scanning Final Result * Pap and High Risk HPV and Genotyping (Cytology Component) (04/28/2024 10:41 AM CDT) Thin prep (Pap test) 04/28/2024 10:41 AM CDT 04/28/2024 1:00 PM CDT Narrative PATHOLOGY [facility] - 05/04/2024 4:21 PM CDT EPIC results best viewed via link to PDF [facility] [place] [address] Note to Patients: This report may contain [...] REPORT FINAL Patient Name: ALEAH LEVINE Gender: Michelle : 1960 (Age: 63) Address: [address] [place], [place] [id number] Hospital #: [id number] Service: Medical Location: [place] [address] Patient Type: [facility] Inpatient Taken: 04/28/2024 Received: 04/28/2024 Accessioned: 04/28/2024 [...] this test have been verified by the [facility] Molecular Infectious Disease laboratory. Correlate with reported cytology results, as applicable. Interpretive data last revised 23 [facility]05/04/2024 16:21 JEANNIE Worthington(ASC) Report Electronically Reviewed and Signed Out By JEANNIE Worthington([facility]) 05/04/2024 16:21:37 Cervicovaginal Cytology (Pap Test) Disclaimer: The Pap test is a screening test used to detect cervical cancer and its precursors; it is not a diagnostic procedure. False negative and false positive results do occur. Pap test results should be interpreted in the context of pertinent clinical information and biopsy results as indicated. [facility] Clinical Laboratory Improvement Amendments (CLIA) mandate that cytologic and histologic results be correlated for laboratory aerospace quality engineer & improvement standards. FOR ALL HIGH-GRADE CASES [...] determined by the Surgical Pathology Department at [facility] as part of an ongoing quality assurance supervisor final program and in compliance with federally mandated [...] determined by the Surgical Pathology Department of [facility]. It has not been cleared or approved by the U. S. Food and Drug Administration. Eladio Carey MD LAB CYTOLOGY ORDERABLES Final Result PATHOLOGY [facility] 3rd Floor [place], [place] [phone] * Screening Mammogram Bilateral W Pal (04/27/2024 1:55 PM CDT) Anatomical Region Laterality Modality Breast Bilateral Mammography Narrative 04/27/2024 1:52 PM CDT Mammogram Technique: Bilateral Digital Breast Tomosynthesis, Bilateral C-view 2D Screening mammogram. Views obtained: bilateral craniocaudal and bilateral mediolateral oblique. Computer Aided Detection was performed. Mammogram Findings: The present examination has been compared to prior imaging studies performed at [facility] on 05/15/2021 and 12/06/2021. There are scattered [...] compared to prior imaging studies performed at [facility] on 05/15/2021 and 12/06/2021. There are scattered [...] revised on 2018. Triglycerides 43 <=149 mg/dL [facility] Comment: Interpretive Data Ages < or [...] revised on 2018. HDL 64 >=40 mg/dL [facility] Comment: Interpretive Data Ages < or [...] on 2018. LDL, calculated 47 <=129 mg/dL [facility] Comment: Interpretive Data Ages < or [...] 3. Gavin Velasquez et al. SCOTT Cardiol. 2019December 10;5(5):540-548. doi: 10.1001/jamacardio.2020.0013 Current Interpretive Data was last revised on 2024. Non-HDL Cholesterol 58 mg/dL [facility] Comment: Interpretive Data Ages < or [...] last revised on 2018. Chol/HDL ratio 2 [facility] Blood 04/22/2024 12:5 8 AM CDT 04/22/2024 3:00 AM CDT us John Paul Reddy MD LAB BLOOD ORDERABLES Final Resul t [facility] Department [place] [address] * Hepatitis C antibody Blood (06/16/2023 6:09 AM LEATHER SCRUBBER) Hep C Ab Nonreactive Nonreactive [facility] Comment:Antibodies to HCV no t detected. Does NOT exclude the possibility of recent exposure to HCV. Current interpretive data was last revised on 22 Blood 06/16/2023 6:09 AM LEATHER SCRUBBER 06/16/2023 6:35 AM LEATHER SCRUBBER us Alejandro Frazier MD LAB MICROBIOLOGY - GENERAL ORDERABLES Final Result [facility] [place] [address] * COLONOSCOPY (05/30/2022 9:28 AM CDT) Anatomical Region Laterality Modality Other Narrative Procedure Note Pat Robins MD - 05/30/2022 9:28 AM CDT [facility] ENDOSCOPY [facility] Patient Name: Aleah Levine Procedure Date: 05/30/2022 9:28 AM Date of : 1960 Admit Type: Outpatient Age: 61 Gender: Female Attending MD: Pat Robins M.D. Room: [facility] ENDOSCOPY ROOM 3 Note Status: [...] passed under direct vision.The [facility] [id number] endoscope was introducedthrough the anus and [...] On: 05/30/2022 9:28 AM Recognized by the [place] [employer]intestinal [employer] for promoting quality in endoscopy Pat Robins MD ENDOSCOPY PROCEDURES Ju l Result * Albumin Creatinine Ratio, Urine (03/01/2021 2:45 PM CDT) Albumin Ur <12.0 mg/L [facility] Comment: Interpretive Data No reference range established. Current interpretive data was last revised 2018. Creatinine Ur 59.5 mg/dL [facility] Comment: Interpretive Data No reference range established. Current interpretive data was last revised 2018. Albumin Creatinine Ratio, Ur <20 1 - 29 mg/g [facility] Urine 03/01/2021 2:45 PM CDT 03/01/2021 3:41 PM CDT Oly Baker MD LAB URINE ORDER RAVEN Final Result [facility] [place] [address] from Last 3 Months or Most Recently Relevant to Health Maintenance Insurance [facility] [place] [facility] ACCESS ICRTec OOS [facility] TRANSPLANT [employer] MEDICARE SOLUTIONS TRANSPLANT [employer] MED[employer]ARE RISK Advance Directives For more information, please contact: [phone] * Full Code (Latest Code Status on [...] 3:22 PM 01/03/2023 6:29 PM Care Teams Head Wrestling Coach Relationship Specialty Start Date End Date Maddy Romano MD [address] [place] [address] PCP - General 09/28/16 Manas Ibarra MD [address] [place] [address] Referring Physician Thoracic Surgery 11/05/18 Zion Barton MD [address] [place] [address] Radiation Oncologist Radiation Oncology 05/05/19 Molina Charles MD [address] [facility] [address] [place] [address] Referring Physician Transplant Hepatology 12/15/20 Inés Lemus, TYRA [address] [facility] [address] [place] [address] Body Care Manager 10/31/21 Karuna Maria OT Occupational Therapist Occupational Therapy 09/20/22 Renu Treviño NP [address] [facility] [address] [place] [address] Nurse Practitioner Radiation Oncology 11/08/22 Eladio Mcrae MD [address] [place] [address] Referring Physician Obstetrics and Gynecology 11/15/22 Tamiko Schroeder, RN [address] [place] [address] Body Care Manager 04/27/24
--- OUTSIDE RECORDS SUMMARY | 2024-09-21 13:52 | XMS_ITS | Referral Summary ---
Author Organization [facility] Address [address] [place] [address] Care Team Providers Care Security Tester Name Role Phone Unavailable Primary Care Provider Unavailabl e Source Comments [facility],non-owned Affiliates and Associated Physician Practices is amultiple site organization consisting of ambulatory clinics and hospital sitesin [place], [place], [place] and [place]. This disclosure is being madepursuant to the Care Everywhere program and may not contain all information available regarding this patient. Last updated 18.[facility] Social [employer] Simplified Active Problems Problem Noted Date Diagnosed Date Hepatic encephalopathy 04/01/2024 Cerebellar infarct 04/01/2024 Social History Tobacco Use Types Packs/Day Years Used Date Smoking Tobacco: Never Assessed Sex and Gender Information Value Date Recorded Sex Assigned at Not on file Gender Identity Not on file Sexual Orientation Not on file Plan of Treatment Not on file
--- OUTSIDE RECORDS SUMMARY | 2024-09-21 13:52 | XMS_ITS | Encounter Summary ---
Author Organization [facility] Address [address] [place] [address] Phone Care Team Providers Care Supervisor Show Operations Name Role Phone Maddy Romano MD Primary Care Provider [phone] Astrid Haq NP Unavailable Manas Ibarra MD Unavailable Zion Barton MD Unavailable [phone] Molina Charles MD Unavailable [phone] Inés Lemus RN Unavailable [phone] Karuna Maria OT Unavailable Unavaila Renu Paul NP Unavailable [phone] Eladio Mcrae MD Unavailable [phone] Tamiko Schroeder RN Unavailable [phone] Birana Poe RN Unavailable [phone] Encounter Details Date Type Department Care Team (Late st Contact Info) Description 09/07/2021 Orders Only [facility] Scanning, Provider Social History Tobacco Use Types Packs/Day Years Used Date Smoking Tobacco: Former Cigarettes Q uit: 2010 Smokeless Tobacco: Never Comments No Sex and Gender Information Value Date Recorded Sex Assigned at Not on file Legal Sex Female 8:22 AM DERMATOLOGY NURSE PRACTITIONER Gender Identity Female 11/15/2021 2:30 AM CDT [...] Date/Time Associated Diagnosis Comments SCAN - LABS 09/07/2021 documented in this encounter Results * SCAN - LABS (09/07/2021) us Provider Scanning Final Result documented in [...] documented as of this encounter Care Teams Supervisor Show Operations Relationship Specialty Start Date End Date Maddy Romano MD [address] [place] [address] PCP - General 09/28/16 Astrid Haq NP [address] [place] [address] Nurse Practitioner Radiation Oncology 11/05/18 11/07/22 Manas Ibarra MD [address] [place] [address] Referring Physician Thoracic Surgery 11/05/18 Zion Barton MD [address] [place] [address] Radiation Oncologist Radiation Oncology 05/05/19 Molina Charles MD [address] [facility] [address] [place] [address] Referring Physician Transplant Hepatology 12/15/20 Inés Lemus RN [address] [facility] [address] [place] [address] Biomass Boiler Operator 10/31/21 Karuna Maria OT Occupational Therapist Occupational Therapy 09/20/22 Renu Treviño NP [address] [facility] [address] [place] [address] Nurse Practitioner Radiation Oncology 11/08/22 Eladio Mcrae MD [address] [place], [place] [address] Referring Physician Obstetrics and Gynecology 11/15/22 Tamiko Schroeder RN [address] [place] [address] Biomass Boiler Operator 04/27/24 Briana Poe RN [address] [facility] [address] [place] [address] SHOP Outpatient Patient Monitor 04/30/24 05/28/24 documented as of this encounter
--- OUTSIDE RECORDS SUMMARY | 2024-09-21 13:52 | XMS_ITS | Patient Health Summary ---
Author Organization [facility] Address [address] [place] [address] Care Team Providers Care Television News Video Editor Name Role Phone Unavailable Primary Care Provider Unavailabl e Note from [facility],non-owned Affiliates and Associated Physician Practices is amultiple site organization consisting of ambulatory clinics and hospital sitesin [place], [place], [place] and [place]. This disclosure is being madepursuant to the Care Everywhere program and may not contain all information available regarding this patient. Last updated 18.[facility] Active Problems Problem Noted Date Diagnosed Date Hepatic encephalopathy 04/01/2024 Cerebellar infarct 04/01/2024 Social History Tobacco Use Types Packs/Day Years Used Date Smoking Tobacco: Never Assessed Sex and Gender Information Value Date Recorded Sex Assigned at Not on file Gender Identity Not on file Sexual Orientation Not on file
--- OUTSIDE RECORDS SUMMARY | 2024-09-21 13:52 | XMS_ITS | Encounter Summary ---
Author Organization [facility] Address [address] [place] [address] Care Team Providers Care Test Skein Winder Name Role Phone Maddy Romano MD Primary Care Provider Astrid Haq NP Unavailable Manas Ibarra MD Unavailable Zion Barton MD Unavailable Molina Charles MD Unavailable [phone] Inés Lemus RN Unavailable [phone] Karuna Maria OT Unavailable Unavaila Renu Paul NP Unavailable [phone] Eladio Mcrae MD Unavailable [phone] Tamiko Schroeder RN Unavailable [phone] Briana Poe RN Unavailable [phone] Reason for Visit * Reason Onset Date Comments Ready to schedule 04/25/2022 Encounter Details Date Type Department Care Team (Late st Contact Info) Description 04/25/2022 Telephone [facility] Specialty Services [address] [place] [address] Miscellaneous, Not In File Ready to schedule Social History Tobacco Use Types Packs/Day Years Used Date Smoking Tobacco: Former Cigarettes 0.5 51 1 0 2020 Smokeless Tobacco: Never AUDIT-C Answer Date Recorded Q1: How often do you have a drink containing alc ohol? Never 11/28/2021 Average Number of Drinks Not on file 022 Q3: How often do you have si x or more drinks on one occasion? 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 of this encounter Plan of Treatment Scheduled Procedures Name Priority Associated Diagnoses Date/Ti me COLONOSCOPY Routine adult health maintenance LYONS (nonalcoholic steatohepatitis) documented as of this encounter Visit Diagnoses Not on filedocumented [...] documented as of this encounter Care Teams Test Skein Winder Relationship Specialty Start Date End Date Maddy Romano MD [address] [place] [address] PCP - General 09/28/16 Astrid Haq NP [address] [place] [address] Nurse Practitioner Radiation Oncology 11/05/18 11/07/22 Manas Ibarra MD [address] [place] [address] Referring Physician Thoracic Surgery 11/05/18 Zion Barton MD [address] [place] [address] Radiation Oncologist Radiation Oncology 05/05/19 Molina Charles MD [address] [facility] [address] [place] [address] Referring Physician Transplant Hepatology 12/15/20 Inés Lemus RN [address] [facility] [address] [place] [address] Muffler Mechanic 10/31/21 Karuna Maria, OT Occupational Therapist Occupational Therapy 09/20/22 Renu Treviño NP [address] [facility] [address] [place] [address] Nurse Practitioner Radiation Oncology 11/08/22 Eladio Mcrae MD [address] [place] [address] Referring Physician Obstetrics and Gynecology 11/15/22 Tamiko Schroeder RN [address] [place] [address] Muffler Mechanic 04/27/24 Briana Poe RN [address] [facility] [address] [place] [address] SHOP Outpatient Retail Sales Representative 04/30/24 05/28/24 documented as of this encounter
--- OUTSIDE RECORDS SUMMARY | 2024-09-21 13:52 | XMS_ITS | Encounter Summary ---
Author Organization [facility] Address [address] [place] [address] Care Team Providers Care Software Qa System Specialist Name Role Phone Maddy Romano MD Primary Care Provider [phone] Manas Ibarra MD Unavailable Zion Barton MD Unavailable Molina Charles MD Unavailable [phone] Inés Lemus RN Unavailable [phone] Karuna Maria OT Unavailable Unavaila Renu Paul NP Unavailable [phone] Eladio Mcrae MD Unavailable [phone] Tamiko Schroeder RN Unavailable [phone] Briana Poe RN Unavailable [phone] Encounter Details Date Type Department Care Team (Late st Contact Info) Description 05/11/2024 Telephone [facility] [address] [place] [address] Ragini Wheeler, TYRA Social History Tobacco Use Types Packs/Day Years Used Date Smoking Tobacco: Former Cigarettes 0.5 51 1 970 - 2020 Smokeless Tobacco: Never [employer] Utilities Answer Date Recorded In the past 12 months has th e electric, gas, oil, or water company threatened to shut off services in your home? No 04/30/2024 Social Connection and Isolat ion Panel [NHANES] Answer Date Recorded In a typical week, how many times do you talk on the phone with family, friends, or neighbors? More than three times a week 04/30/2024 How often do you get togethe r with friends or relatives? More than three times a week 04/30/2024 How often do you attend chur ch or methodist services? Never 04/30/2024 Do you belong to any clubs o r organizations such as anabaptism groups, unions, fraternal or athletic groups, or school groups? No 04/30/2024 How often do you attend meet ings of the clubs or organizations you belong to? Never 04/30/2024 Are you , , di vorced, , never , or living with a partner? 04/30/2024 AUDIT-C Answer Date Recorded Q1: How often do you have a drink containing alc ohol? Never 05/17/2023 Average Number of Drinks Not on file 023 Frequency of Binge Drinking Not on file 01/2023 Overall Financial Resource Strain (CARDIA) Answe r Date Recorded How hard is it for you to pa y for the very basics like food, housing, medical care, and heating? Not hard at all 04/30/2024 PHQ-2 Answer Date Recorded PHQ-2 Total Score (If total score is 3 or more points, staff should administer the PHQ-9) 0 01/27/2023 Hunger Vital Sign Answer Date Recorded Within the past 12 months, y ou worried that your food would run out before you got the money to buy more. Never true 04/30/20 24 Within the past 12 months, t he food you bought just didn't last and you didn't have money to get more. Never true 04/30/2024 PRAPARE - Transportation Answer Date Re corded In the past 12 months, has l ack of transportation kept you from medical appointments or from getting medications? No 04/12 In the past 12 months, has l ack of transportation kept you from meetings, work, or from getting things needed for daily living? No 04/30/2024 Housing Stability Vital Sign Answer Terrance e [...] place to sleep or slept in a group home (including now)? No 12/31/2022 Housing Stability Vital Sign Answer Terrance e Recorded In the last 12 months, was t here a time when you were not able to pay the mortgage or rent on time? No 04/30/2024 In the past 12 months, how m any times have you moved where you were living? 0 04/30/2024 At any time in the past 12 [facility], were you homeless or living in a group home (including now)? No 04/30/2024 Personal Safety Answer Date Recorded Have you ever been in or are you currently in a harmful physical or emotional relationship or is someone making you feel afraid or unsafe? Denies 04/21/2024 Comments No Sex and Gender Information Value Date Recorded Sex Assigned at Not on file Legal Sex Female 8:22 AM EHR TRAINER Gender Identity Female 11/15/2021 2:30 AM CDT [...] Diagnoses Not on filedocumented in this encounter Care Teams Software Qa System Specialist Relationship Specialty Start Date End Date Maddy Romano MD [address] [place] [address] PCP - General 09/28/16 Manas Ibarra MD [address] [place], [place] [address] Referring Physician Thoracic Surgery 11/05/18 Zion Barton MD [address] [place] [address] Radiation Oncologist Radiation Oncology 05/05/19 Molina Charles MD [address] [facility] [address] [place] [address] Referring Physician Transplant Hepatology 12/15/20 Inés Lemus, TYRA [address] [facility] [address] [place] [address] Architectural Coating Finisher 10/31/21 Karuna Maria, OT Occupational Therapist Occupational Therapy 09/20/22 Renu Treviño NP [address] [facility] [address] [place] [address] Nurse Practitioner Radiation Oncology 11/08/22 Eladio Mcrae MD [address] [place] [address] Referring Physician Obstetrics and Gynecology 11/15/22 Tamiko Schroeder RN [address] [place] [address] Architectural Coating Finisher 04/27/24 Briana Poe RN [address] [facility] [address] [place] [address] SHOP Outpatient Relay Record Clerk 04/30/24 05/28/24 documented as of this encounter
--- OUTSIDE RECORDS SUMMARY | 2024-09-21 13:52 | XMS_ITS | Clinical Summary ---
Author Organization [facility] Address [address] [place] [address] Care Team Providers Care Superintendent Production Name Role Phone Unavailable Primary Care Provider Unavailabl e Source Comments [facility],non-owned Affiliates and Associated Physician Practices is amultiple site organization consisting of ambulatory clinics and hospital sitesin [place], [place], [place] and [place]. This disclosure is being madepursuant to the Care Everywhere program and may not contain all information available regarding this patient. Last updated 18.[facility] Active Problems Problem Noted Date Diagnosed Date Hepatic encephalopathy 04/01/2024 Cerebellar infarct 04/01/2024 Social History Tobacco Use Types Packs/Day Years Used Date Smoking Tobacco: Never Assessed Sex and Gender Information Value Date Recorded Sex Assigned at Not on file Gender Identity Not on file Sexual Orientation Not on file Plan of Treatment Health Maintenance Due Date Last Done Comments COLOGUARD (AGES 45-75) - COL ON CA SCREENING 1960 COLON MONITORING 1960 COLONOSCOPY - COLON CA SCREENING 1960 CT COLONOGRAPHY - COLON CA SCREENING 1960 Colorectal Cancer Screening 1960 FIT - COLON CA SCREENING 1960 FLEX SIG - COLON CA SCREENING 1960 LIPID TESTING 1960 MAMMOGRAM 1960 PAP SMEAR 1960 HIV SCREENING 12/18/1975 HEPATITIS C SCREENING 12/13/1978 DTAP/TDAP/TD VACCINES (1 - Tdap) 12/18/1979 PNEUMOCOCCAL VACCINE 50+ (1 of 1 - PCV) 2010 ZOSTER VACCINE (1 of 2) 2010 COVID-19 VACCINE ( - 2023-2 5 season) 2024 INFLUENZA VACCINE (#1) 2024 DEPRESSION SCREENING 08/12/2024 Respiratory Syncytial Virus (RSV) Vaccine Pt: or over 60 yrs (1 - 1-dose 75+ series) 12/18/2035 HEPATITIS B VACCINE Aged Out No longe r eligible based on patient's age to complete this topic HIB VACCINE Aged Out No longer eligi ble based on patient's age to complete this topic HPV VACCINE Aged Out No longer eligi ble based on patient's age to complete this topic MENINGOCOCCAL (Group B) VACCINE Aged Out No longer eligible based on patient's age to complete this topic MENINGOCOCCAL VACCINE Aged Out No leo clifton eligible based on patient's age to complete this topic PNEUMOCOCCAL VACCINE Aged Out No long er eligible based on patient's age to complete this topic
--- OUTSIDE RECORDS SUMMARY | 2024-09-21 13:52 | XMS_ITS | Encounter Summary ---
Author Organization [facility] Address [address] [place] [address] Phone Care Team Providers Care Radio Communications Superintendent Name Role Phone Maddy Romano MD Primary Care Provider [phone] Astrid Haq NP Unavailable Manas Ibarra MD Unavailable Zion Barton MD Unavailable Molina Charles MD Unavailable [phone] Inés Lemus RN Unavailable [phone] Karuna Maria OT Unavailable Unavaila Renu Paul NP Unavailable Eladio Mcrae MD Unavailable Tamiko Schroeder RN Unavailable [phone] Briana Poe RN Unavailable Encounter Details Date Type Department Care Team (Late st Contact Info) Description 08/11/2021 Orders Only [facility] Scanning, Provider Social History Tobacco Use Types Packs/Day Years Used Date Smoking Tobacco: Former Cigarettes Q uit: 2010 Smokeless Tobacco: Never Comments No Sex and Gender Information Value Date Recorded Sex Assigned at Not on file Legal Sex Female 8:22 AM DECORATING SUPERVISOR Gender Identity Female 11/15/2021 2:30 AM CDT [...] Date/Time Associated Diagnosis Comments SCAN - LABS 08/11/2021 documented in this encounter Results * SCAN - LABS (08/11/2021) us Provider Scanning Final Result documented in [...] documented as of this encounter Care Teams Radio Communications Superintendent Relationship Specialty Start Date End Date Maddy Romano MD [address] [place] [address] PCP - General 09/28/16 Astrid Haq NP [address] [place] [address] Nurse Practitioner Radiation Oncology 11/05/18 11/07/22 Manas Ibarra MD [address] [place] [address] Referring Physician Thoracic Surgery 11/05/18 Zion Barton MD [address] [place] [address] Radiation Oncologist Radiation Oncology 05/05/19 Molina Charles MD [address] [facility] [place] [address] [place] [address] Referring Physician Transplant Hepatology 12/15/20 Inés Lemus RN [address] [facility] [address] [place] [address] Baker Bench 10/31/21 Karuna Maria OT Occupational Therapist Occupational Therapy 09/20/22 Renu Treviño NP [address] [facility] [address] [place] [address] Nurse Practitioner Radiation Oncology 11/08/22 Eladio Mcrae MD [address] [place], [place] [address] Referring Physician Obstetrics and Gynecology 11/15/22 Tamiko Schroeder RN [address] [place] [address] Baker Bench 04/27/24 Briana Poe RN [address] [facility] [address] [place] [address] SHOP Outpatient Oven Drier Tender 04/30/24 05/28/24 documented as of this encounter
--- OUTSIDE RECORDS SUMMARY | 2024-09-21 13:52 | XMS_ITS | Encounter Summary ---
Author Organization [facility] Address [address] [place] [address] Care Team Providers Care Superintendent Local Name Role Phone Maddy Romano MD Primary Care Provider [phone] Astrid Haq NP Unavailable Manas Ibarra MD Unavailable Zion Barton MD Unavailable Molina Charles MD Unavailable [phone] Inés Lemus RN Unavailable [phone] Karuna Maria OT Unavailable Unavaila Renu Paul NP Unavailable [phone] Eladio Mcrae MD Unavailable [phone] Tamiko Schroeder RN Unavailable [phone] Briana Poe RN Unavailable [phone] Reason for Visit * Reason Onset Date Comments Ready to scheduled 04/26/2022 Encounter Details Date Type Department Care Team (Late st Contact Info) Description 04/26/2022 Telephone [facility] Specialty Services [address] [place] [phone] Miscellaneous, Not In File Ready to scheduled Social History Tobacco Use Types Packs/Day Years [...] on file Legal Sex Female 8:22 AM FIRE ASSISTANT Gender Identity Female 11/15/2021 2:30 AM CDT [...] documented as of this encounter Care Teams Superintendent Local Relationship Specialty Start Date End Date Maddy Romano MD [address] [place] [address] PCP - General 09/28/16 Astrid Haq NP [address] [place] [address] Nurse Practitioner Radiation Oncology 11/05/18 11/07/22 Manas Ibarra MD [address] [place] [address] Referring Physician Thoracic Surgery 11/05/18 Zion Barton MD [address] [place] [address] Radiation Oncologist Radiation Oncology 05/05/19 Molina Charles MD [address] [facility] [address] [place] [address] Referring Physician Transplant Hepatology 12/15/20 Inés Lemus RN [address] [facility] [address] [place] [address] Belting Cutter 10/31/21 Karuna Maria, OT Occupational Therapist Occupational Therapy 09/20/22 Renu Treviño NP [address] [facility] [address] [place] [address] Nurse Practitioner Radiation Oncology 11/08/22 Eladio Mcrae MD [address] [place] [address] Referring Physician Obstetrics and Gynecology 11/15/22 Tamiko Schroeder RN [address] [place] [address] Belting Cutter 04/27/24 Briana Poe RN [address] [facility] [address] [place] [address] SHOP Outpatient [place] Machine Operator Helper 04/30/24 05/28/24 documented as of this encounter
--- OUTSIDE RECORDS SUMMARY | 2024-09-21 13:53 | XMS_ITS | Encounter Summary ---
Author Organization [facility] Address [address] [place] [address] Phone Care Team Providers Care Dehydrator Operator Name Role Phone Maddy Romano MD Primary Care Provider Astrid Haq NP Unavailable Manas Ibarra MD Unavailable Zion Barton MD Unavailable Molina Charles MD Unavailable [phone] Inés Lemus RN Unavailable [phone] Karuna Maria OT Unavailable Unavaila Renu Paul NP Unavailable Eladio Mcrae MD Unavailable [phone] Tamiko Schroeder RN Unavailable [phone] Briana Poe RN Unavailable [phone] Encounter Details Date Type Department Care Team (Late st Contact Info) Description 04/13/2020 Orders Only [facility] Scanning, Provider Social History Tobacco Use Types Packs/Day Years Used Date Smoking Tobacco: Former Cigarettes Q uit: 2010 Smokeless Tobacco: Never Comments No Sex and Gender Information Value Date Recorded Sex Assigned at Not on file Legal Sex Female 8:22 AM CITY 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 Gender Identity Female 11/15/2021 2:30 AM CDT [...] Date/Time Associated Diagnosis Comments SCAN - LABS 04/13/2020 documented in this encounter Results * SCAN - LABS (04/13/2020) us Provider Scanning Final Result documented in [...] documented as of this encounter Care Teams Dehydrator Operator Relationship Specialty Start Date End Date Maddy Romano MD [address] [place] [address] PCP - General 09/28/16 Astrid Haq NP [address] [place] [address] Nurse Practitioner Radiation Oncology 11/05/18 11/07/22 Manas Ibarra MD [address] [place] [address] Referring Physician Thoracic Surgery 11/05/18 Zion Barton MD [address] [place] [address] Radiation Oncologist Radiation Oncology 05/05/19 Molina Charles MD [address] [place] [address] [address] [place] [address] Referring Physician Transplant Hepatology 12/15/20 Inés Lemus RN [address] [facility] [address] [place] [address] Evp Head Of [employer] Experience Strategy 10/31/21 Karuna Maria, OT Occupational Therapist Occupational Therapy 09/20/22 Renu Treviño NP [address] [facility] [address] [place] [address] Nurse Practitioner Radiation Oncology 11/08/22 Eladio Mcrae MD [address] [place] [address] Referring Physician Obstetrics and Gynecology 11/15/22 Tamiko Schroeder RN [address] [place] [address] Evp Head Of [employer] Experience Strategy 04/27/24 Briana Poe RN [address] [facility] [address] [place] [address] SHOP Outpatient Surgical Garment Assembly Supervisor 04/30/24 05/28/24 documented as of this encounter
--- OUTSIDE RECORDS SUMMARY | 2024-09-21 13:53 | XMS_ITS | Encounter Summary ---
Author Organization [employer] Address [address] [place] [address] Care Team Providers Care Pallet Rectifier Name Role Phone Unavailable Primary Care Provider Unavailabl e Reason for Visit * Reason Onset Date Comments TR on CKD 04/02/2024 Spoke w/Dr. Mueller Stroke/CVA 04/02/2024 Spoke w/Gladys @ Dr. Anthony's exchange Encounter Details Date Type Department Care Team (Late st Contact Info) Description 04/02/2024 Telephone [facility] [address] [place] [address] Marcos Newton MD [address] [place] [phone] TR on CKD (Spoke w/Dr. Mueller); Stroke/CVA (Spoke w/Gladys @ Dr. Anthony's exchange) Social History Tobacco Use Types Packs/Day Years Used Date Smoking Tobacco: Some Days Cigarettes Smokeless Tobacco: Never Alcohol Use Standard Drinks/Week Comments Not Currently 0 (1 standard drink = 0.6 oz pur e alcohol) Not in a long time Feeling Safe Answer Date Recorded Are you in a relationship wi th someone who hurts you emotionally and/or physically? No 04/02/2024 Food Insecurity Answer Date Recorded Social/Environmental Concerns No concerns Transportation Needs Answer Date Record ed Social/Environmental Concerns No concerns Housing Stability Answer Date Recorded Social/Environmental Concerns No concerns Utility Needs Answer Date Recorded Social/Environmental Concerns No concerns Comments Unknown Sex and Gender Information Value Date Recorded Sex Assigned at Not on file Legal Sex Female 8:33 PM CDT Gender Identity Not on file Sexual Orientation Not on file documented as of this encounter Plan of Treatment Not on file documented as of this encounter Visit Diagnoses Not on filedocumented in this encounter Additional Health Concerns Infection Onset Date Last Indicated Resolved Time R/O C. diff 04/03/2024 04/04/2024 04/04/2024 3:46 PM CDT Assessment Noted Time PHQ-9 Depression Total Score: 1 04/02/20 5:00 PM CDT documented as of this encounter
--- OUTSIDE RECORDS SUMMARY | 2024-09-21 13:53 | XMS_ITS ---
Author Organization [facility] Address [address] [place] [address] Care Team Providers Care Delinquency Prevention Social Worker Name Role Phone Maddy Romano MD Primary Care Provider [phone] Manas Ibarra MD Unavailable Zion Barton MD Unavailable Molina Charles MD Unavailable [phone] Inés Lemus RN Unavailable [phone] Karuna Maria OT Unavailable Unavaila Renu Paul NP Unavailable [phone] Eladio Mcrae MD Unavailable [phone] Tamiko Schroeder RN Unavailable [phone] Transplant Episode Liver Candidate [facility] ([place], [place]) - [facility] Center waitlisted on 08/17/2022 Marked as Active on 05/07/2024 Reason: Listed in UNET Liver CoordinatorInés Lemus RN Fax: N/A Email: N/A Scores Score Value Updated Expires Exceptions/[place] sons CPRA Not available UNOS MELD 21 08/30/2024 09/29/2024 MELD (Calc) 21 08/27/2024 [place] Organ Diagnosis Organ Primary Contributory Liver Cirrhosis: Metabolic Dysfunction -Associated Steatohepatitis (MASH) Care Team Name Role Phone Fax Email Inés Lemus, TYRA Liver Coordinator [phone] N/A N/A Charito Lambert, DEVONTE Dietitian N/A N/A N/A Anna Ngo, SQL ARCHITECT Take Off Worker N/A N/A N/A Molina Charles MD Referring Physician [phone] N/A Chelsea Barker, TYRA Secondary Coordinator N/A N/A N/A [place] Bear Glove Boarder [phone] N/A N/A Faith Lopez Primary Gear Lapping Machine Operator N/A N/A N/A Events Pre-Transplant Referred: 10/26/2021 Evaluation began: 11/02/2021 Committee: 08/07/2022 Center waitlisted: 08/17/2022 Appointments (08/21/2024 - 10/19/2024) When With Visit Type Description 08/24/2024 Transplant - Amanda Garner OUTPATIENT VISIT
--- OUTSIDE RECORDS SUMMARY | 2024-09-21 13:53 | XMS_ITS | Clinical Summary ---
Author Organization [facility] Address [address] [place] [address] Phone Care Team Providers Care Cell Phone Repair Technician Name Role Phone Unavailable Primary Care Provider Unavailabl e Allergies No known active allergies Medications acetaminophen (TYLENOL) 325 mg tablet Take 325 mg by mouth every 8 hours. Active glucagon (BAQSIMI) 3 mg/spray [place], Non-Aerosol 1 [place]. GIVE 1 spray in one NOSTRIL ONE TIME NEEDED FOR SEVERE HYPOGLYCEMIA. May repeat in 15 minutes with new device in other nostril if needed. Active insulin lispro protamine-lispr o (HumaLOG MIX 50-50) 100 unit/mL (50-50) pen syringe Inject 15 Units by subcutaneous injection 3 times daily before meals. Active insulin lispro protamine-lispr o (HumaLOG MIX 50-50) 100 unit/mL (50-50) pen syringe Inject 1 Units by subcutaneous injection 3 times daily with meals. 1 unit for every 25 >150 Active pantoprazole (PROTONIX) 40 mg Tablet, Delayed Release (E.C.) Take 40 mg by mouth daily. Active ondansetron (ZOFRAN) 4 mg Tablet Take 4 mg by mouth every 8 hours as needed for Nausea/Emesis. Active prochlorperazin e maleate (COMPAZINE) 10 mg tablet Take 10 mg by mouth every 8 hours as needed for Nausea/Emesis. Active metOLazone (ZAROXOLYN) 10 mg tablet Take 10 mg by mouth twice weekly. Active metoprolol tartrate (LOPRESSOR) 25 mg tablet Take 25 mg by mouth 2 times daily. Active insulin degludec (Tresiba FlexTouch U-200) 200 unit/mL pen syringe Inject 48 Units by subcutaneous injection one time only. Active lactulose (ENULOSE) 10 gram/15 mL oral solution Take 20 Grams by mouth 3 times daily. Active bumetanide (BUMEX) 1 mg tablet Take 2 mg by mouth two times daily, 7 hours apart. 2 mg in the morning and 1 mg in the afternoon Active rifAXIMin (XIFAXAN) 550 mg Tablet Take 550 mg by mouth 2 times daily. Active semaglutide 1 mg/dose (4 mg/3 mL) Pen Injector Inject 1 mg by subcutaneous injection. Weekly Active spironolactone (ALDACTONE) 100 mg tablet Take 100 mg by mouth 2 times daily. Active aspirin (SHO CHEWABLE) 81 mg Tablet, Chewable Take 1 Tablet (81 mg) by mouth daily. 30 Tablet 1 04/06/2024 11:58 AM CDT Active Active Problems Problem Noted Date Diagnosed Date PFO (patent foramen ovale) 04/03/2024 Hepatic encephalopathy 04/02/2024 Acute kidney injury superimposed on CKD 04/02/20 LYONS (nonalcoholic steatohepatitis) 04/02/2024 CVA (cerebral vascular accident) 04/02/2024 Uncontrolled type 2 diabetes mellitus with hyper glycemia 04/02/2024 Uncontrolled hypertension 04/02/2024 UTI (urinary tract infection) 04/02/2024 Encounters Date Type Department Care Team Description 09/15/2024 External Device Data STL ABSTRACTION Provider, Abstract 09/03/2024 External Device Data [facility] ABSTRACTION Provider, Abstract 07/14/2024 External Device Data [facility] ABSTRACTION Provider, Abstract from Last 3 Months Social History Tobacco Use Types Packs/Day Years Used Date Smoking Tobacco: Some Days Cigarettes Smokeless Tobacco: Never Tobacco Cessation:Ready to Q uit: No Alcohol Use Standard Drinks/Week Comments Not Currently [...] on file Sexual Orientation Not on file Last Filed Vital Signs Vital Sign Reading Time Taken Comments Blood Pressure 116/42 04/06/2024 8:07 AM CDT Pulse 69 04/06/2024 8:07 AM CDT Temperature 36.9 C (98.5 F) 04/06/2024 8:07 AM CDT Respiratory Rate 18 04/06/2024 8:07 AM CDT Oxygen Saturation 100% 04/06/2024 8:07 AM CDT Inhaled Oxygen Concentration - - Weight 139.3 kg (307 lb 1.6 oz) 04/06/2024 1:00 AM CDT Height 170.2 cm (5' 7 ) 04/02/2024 5:06 PM CDT Body Mass Index 48.1 04/02/2024 5:06 PM CDT Plan of Treatment Health Maintenance Due Date Last Done Comments DIABETES ANNUAL FOOT EXAM 1978 DIABETES ANNUAL RETINAL EXAM 1978 DIABETES MICROALBUMIN ANNUAL SCREEN 1978 CERVICAL CANCER SCREENING 1990 FIT-DNA Q 3 years 2005 Flex Sig/CT Colonography Q 5 years 2005 RSV VACCINE (60+ or ) (1 - Risk 60-74 years 1-dose series) 2020 BREAST CANCER SCREENING 12/06/2022 12/06/2021, 05/15 INFLUENZA VACCINE (#1) 2024 , 04/29/2020, 05/01/2019, Additional history exists DTAP/TDAP/TD VACCINES (2 - T d or Tdap) 03/24/2024 03/24/2014 COVID-19 Vaccine (2 - 2023-2 5 season) 2024 10/17/2020 DIABETES HBA1C Q 6 MONTHS 10/03/20242023, 02/14/2024, 09/27/2023 FIT/FOBT Q 1 year 04/03/2025 04/03/2024 LDL CHOLESTEROL ANNUAL 04/03/2025 04/03/2024, 2023 COLORECTAL SCREENING 05/30/2032 05/30/2022, 05/30/2022, 10/26/2019 Colorectal Cancer Screening 05/30/2032 ZOSTER VACCINE Completed 02/17/2020, 05/29/2019 Procedures Procedure Name Priority Date/Time Associated Diagnosis Comments OCCULT BLOOD IMMUNOASSAY, COLORECTAL SCREEN Routine 04/03/2024 1:23 AM CDT LIPID PANEL Routine 04/03/2024 12:30 AM CDT HEMOGLOBIN A1C Routine 04/02/2024 6:29 PM CDT from Last 3 Months or Most Recently Relevant to Health Maintenance Results * OCCULT BLOOD IMMUNOASSAY, COLORECTAL SCREEN (04/03/2024 1:23 AM CDT) OCCULT BLOOD, STOOL Negative Negative 04/03/2024 3:27 AM CDT [facility] Stool STOOL SPECIMEN / Unknown Collection / Unknown 04/03/2024 1:23 AM CDT 04/03/2024 1:24 AM CDT Marcos Newton MD BODY FLUIDS AND STOOLS Final R esult [facility] [employer] retargeting [facility] CLIA# [id number] [place] [address] * LIPID PANEL (04/03/2024 12:30 AM CDT) CHOLESTEROL 114 <200 mg/dL 04/03/2024 1:34 AM CDT [facility] [employer] retargeting [facility] TRIGLYCERIDE 62 <150 mg/dL 04/03/2024 1:34 AM CDT [facility] [employer] ret[employer]ing [facility] HDL 50 40 - 59 mg/dL 04/03/2024 1:34 AM CDT [facility] [employer] ret[employer]ing [facility] LDL CALCULATED 52 <100 mg/dL 04/03/2024 1:34 AM CDT [facility] NON-HDL CHOLESTEROL 64 <130 mg/dL 04/03/2024 1:34 AM CDT [facility] [employer] ret[employer]ing [facility] Blood Venipuncture / Unknown 04/03/2024 12:30 AM CDT 04/03/2024 1:04 AM CDT [facility] - 04/03/2024 1:34 AM CDT TOTAL CHOLESTEROL mg/dL Desirable <200 Borderline high 200-239 High >=240 TRIGLYCERIDES mg/dL Normal <150 Borderline high 150-199 High 200-499 Very high >=500 HDL CHOLESTEROL mg/dL Low <40 Normal 40-59 Desirable >=60 NON HDL CHOLESTEROL mg/dL Optimal <130 Near Optimal 130-159 Borderline High 160-189 Very High >=190 CALCULATED LDL mg/dL LDL <70, OPTIMAL if have Atherosclerotic cardiovascular disease (ASCVD) or intermediate or higher (>7.5%) 10 year risk of ASCVD including most adults with diabetes. LDL <100, Optimal in adult patients with low (<7.5%) 10 year ASCVD risk LDL 100-160, Suboptimal LDL >160, High LDL >190, Very high ATPIII Guidelines Reference Ranges for Lipid Panels (NCEP/AMA) . Marcos Newton MD CHEMISTRY ORDERABLES Final Res ult [facility] CLIA# [id number] [place] [address] * (ABNORMAL) HEMOGLOBIN A1C (04/02/2024 6:29 PM CDT) HEMOGLOBIN A1C 6.5(H) <=5.6 % 04/02/2024 7:01 PM CDT [facility] EST. AVG GLUCOSE, A1C 140 mg/dL 04/02/2024 7:01 PM CDT [facility] Blood Venipuncture / Unknown 04/02/2024 6:29 PM CDT 04/02/2024 6:34 PM CDT [facility] - 04/02/2024 7:01 PM CDT HGB A1C INTERPRETATION NORMAL: <5.7% PRE-DIABETES: 5.7 - 6.4% DIABETES: 6.5% OR GREATER Marcos Newton MD CHEMISTRY ORDERABLES Final Res ult [facility] CLIA# [id number] [place] [address] from Last 3 Months or Most Recently Relevant to Health Maintenance Insurance [facility] [id number] RX [employer] RX Member Subscriber Plan / Payer (Ef fective 2024-Present) Name:Aleah Levine Relation to Subscriber:Self Name:Aleah Levine Payer ID:Not on file Group ID:[id number] Type:RX Medicare Part D Address: [address] Advance Directives For more information, please contact: [phone] * Full Code (Latest Code Status on File) Date Activated Date Inactivated Comments 04/02/2024 6:16 PM 04/06/2024 2:11 PM
--- OUTSIDE RECORDS SUMMARY | 2024-09-21 13:53 | XMS_ITS | Encounter Summary ---
Author Organization [facility] Address [address] [place] [address] Phone Care Team Providers Care Motor Vehicle Emissions Inspector Name Role Phone Maddy Romano MD Primary Care Provider Astrid Haq NP Unavailable Manas Ibarra MD Unavailable Zion Barton MD Unavailable Molina Chalres MD Unavailable [phone] Inés Lemus RN Unavailable [phone] Karuna Maria OT Unavailable Unavaila Renu Paul NP Unavailable Eladio Mcrae MD Unavailable aTmiko Schroeder RN Unavailable [phone] Briana Poe RN Unavailable Encounter Details Date Type Department Care Team (Latest Contact Info) Description 08/18/2020 Orders Only [facility] Scanning, Provider Social History Tobacco Use Types Packs/Day Years Used Date Smoking Tobacco: Former Cigarettes Q uit: 2010 Smokeless Tobacco: Never Comments No Sex and Gender Information Value Date Recorded Sex Assigned at Not on file 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 Sex 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 Gender Identity Female 11/15/2021 2:30 AM [...] Date/Time Associated Diagnosis Comments SCAN - LABS 08/18/2020 documented in this encounter Results * SCAN - LABS (08/18/2020) us Provider Scanning Final Result documented in [...] documented as of this encounter Care Teams Motor Vehicle Emissions Inspector Relationship Specialty Start Date End Date Maddy Romano MD [address] [place] [address] PCP - General 09/28/16 Astrid Haq NP [address] [place] [address] Nurse Practitioner Radiation Oncology 11/05/18 11/07/22 Manas Ibarra MD [address] [place] [address] Referring Physician Thoracic Surgery 11/05/18 Zion Barton MD [address] [place] [address] Radiation Oncologist Radiation Oncology 05/05/19 Molina Charles MD [address] [place] [address] [address] [place] [address] Referring Physician Transplant Hepatology 12/15/20 Inés Lemus RN [address] [facility] [address] [place] [address] Anesthesia Technician 10/31/21 Karuna Maria, OT Occupational Therapist Occupational Therapy 09/20/22 Renu Treviño NP [address] [facility] [address] [place] [address] Nurse Practitioner Radiation Oncology 11/08/22 Eladio Mcrae MD [address] [place] [address] Referring Physician Obstetrics and Gynecology 11/15/22 Tamiko Schroeder RN [address] [place] [address] Anesthesia Technician 04/27/24 Briana Poe RN [address] [facility] [address] [place] [address] SHOP Outpatient Casino Games Dealer 04/30/24 05/28/24 documented as of this encounter
--- OUTSIDE RECORDS SUMMARY | 2024-09-21 13:53 | XMS_ITS ---
Author Organization [facility] Address [address] [place] [address] Care Team Providers Care Rejogger Name Role Phone Maddy Romano MD Primary Care Provider [phone] Manas Ibarra MD Unavailable Zion Barton MD Unavailable [phone] Molina Charles MD Unavailable [phone] Inés Lemus RN Unavailable [phone] Karuna Maria OT Unavailable Unavaila Renu Paul NP Unavailable [phone] Eladio Mcrae MD Unavailable [phone] Tamiko Schroeder RN Unavailable [phone] Transplant Episode Kidney Candidate [facility] ([place], [place]) [facility] Center waitlisted on 05/07/2024 Marked as Inactive on 05/26/2024 Reason: Candidate requires multi-organ [place] only, isolated offers not accepted Kidney CoordinatorTamiko Schroeder RN Email: N/A Scores Score Value Updated Exceptions/Reas ons CPRA Not available EPTS (Calc) 55 09/21/2024 [place] Organ Diagnosis Organ Primary Contributory Kidney Other, Specify - ESRD TR due to dehydration Care Team Name Role Phone Fax Email Tamiko Schroeder RN Kidney Coordinator [phone] N/A Events Pre-Transplant Referred: 04/21/2024 Evaluation began: 04/22/2024 Committee: 04/27/2024 Center waitlisted: 05/07/2024 Appointments (08/21/2024 - 10/19/2024) When With Visit Type Description 08/24/2024 Transplant - Amanda Garner OUTPATIENT VISIT
[2024-09-21 14:05] LABS: Kit Draw Collected
== END 2024-09-21 13:42 | disposition home or self-care (01) ==
PROVIDERS: PCP Internal Medicine; Visit Provider Transplant Surgery
DX: N18.6 End stage renal disease (principal)
CPT/HCPCS: 36415

== ENCOUNTER 2024-09-24 03:02 | Emergency (ER) | payer MEDICARE, SELFPAY ==
[2024-09-24] VITALS (36 sets, daily range): BP systolic 106–202; BP diastolic 49–179; PULSE 60–89; RESP 12–30; TEMP 36.1–36.8; O2SAT 96–100
--- NOTE | ~2024-09-24 | CT_ITS ---
Non-contrast Head CT History: Unresponsive COMPARISON: 04/01/2024 Technique: Axial non-contrast imaging of the brain was performed. Dose reduction technique was used on this scan by utilizing automated exposure control and iterative reconstruction technique. The dose -length product (DLP) was 681.00 mGy-cm. Findings: There is no evidence of intracranial hemorrhage, mass lesion, or acute infarct. Brain par enchyma appears normal. The ventricles and subarachnoid spaces are normal in size. The calvarium ap pears normal. The visualized paranasal sinuses and mastoid air cells are clear. Impression: No significant abnormality seen. Reviewed, dictated and finalized at location . VERY SPECIALIST Impression: No significant abnormality seen.
--- NOTE | ~2024-09-24 | XR_ITS ---
Portable chest x-ray Comparison: 04/01/2024 Clinical History: Unresponsive Findings: Lungs are clear, without focal consolidation or pleural effusion. Cardiomediastinal silho uette is stable. Bones and soft tissues are unremarkable. Impression: Clear lungs. Reviewed, dictated and finalized at location . ERER Impression: Clear lungs.
--- OUTSIDE RECORDS SUMMARY | 2024-09-24 03:04 | XMS_ITS | Clinical Summary ---
Author Organization [facility] Address [address] [place] [address] Care Team Providers Care Hand Compositor Name Role Phone Maddy Romano MD Primary Care Provider [phone] Active Problems Problem Noted Date Diagnosed Date [...] patient's age to complete this topic Insurance [facility] [place] [id number] Care Teams Hand Compositor Relationship Specialty Start Date End Date Maddy Romano MD [address] [place] [address] PCP - General INTERNAL MEDICINE 01/16/23
--- OUTSIDE RECORDS SUMMARY | 2024-09-24 03:04 | XMS_ITS | Encounter Summary ---
Author Organization [facility] Address [address] [place] [address] Phone Care Team Providers Care Eeg Technician Name Role Phone Maddy Romano MD Primary Care Provider Astrid Haq NP Unavailable [phone] Manas Ibarra MD Unavailable Zion Barton MD Unavailable Molina Charles MD Unavailable [phone] Inés Lemus RN Unavailable [phone] Karuna Maria OT Unavailable Unavaila Renu Paul NP Unavailable [phone] Eladio Mcrae MD Unavailable [phone] Tamiko Schroeder RN Unavailable [phone] Briana Poe RN Unavailable Encounter Details Date Type Department Care Team (Late st Contact Info) Description 10/11/2021 Orders Only [facility] Scanning, Provider Social History Tobacco Use Types Packs/Day Years Used Date Smoking Tobacco: Former Cigarettes Q uit: 2010 Smokeless Tobacco: Never Comments No Sex and Gender Information Value Date Recorded Sex Assigned at Not on file Legal Sex Female 8:22 AM FLIGHT TECHNICIAN Gender Identity Female 11/15/2021 2:30 AM CDT [...] documented as of this encounter Care Teams Eeg Technician Relationship Specialty Start Date End Date Maddy Romano MD [address] [place] [address] PCP - General 09/28/16 Astrid Haq NP [address] [place] [address] Nurse Practitioner Radiation Oncology 11/05/18 11/07/22 Manas Ibarra MD [address] [place] [address] Referring Physician Thoracic Surgery 11/05/18 Zion Barton MD [address] [place] [address] Radiation Oncologist Radiation Oncology 05/05/19 Molina Charles MD [address] [facility] [address] [place] [address] Referring Physician Transplant Hepatology 12/15/20 Inés Lemus RN [address] [facility] [address] [place] [address] Meeting/Event Planner 10/31/21 Karuna Maria OT Occupational Therapist Occupational Therapy 09/20/22 Renu Treviño NP [address] [facility] [address] [place] [address] Nurse Practitioner Radiation Oncology 11/08/22 Eladio Mcrae MD [address] [place], [place] [address] Referring Physician Obstetrics and Gynecology 11/15/22 Tamiko Schroeder RN [address] [place] [address] Meeting/Event Planner 04/27/24 Briana Poe RN [address] [facility] [address] [place] [address] SHOP Outpatient Roll Icer Machine 04/30/24 05/28/24 documented as of this encounter
--- OUTSIDE RECORDS SUMMARY | 2024-09-24 03:04 | XMS_ITS | Encounter Summary ---
Author Organization [facility] Address [address] [place] [address] Phone Care Team Providers Care Field Crop Farmworker Name Role Phone Maddy Romano MD Primary Care Provider Astrid Haq NP Unavailable Manas Ibarra MD Unavailable Zion Barton MD Unavailable Molina Charles MD Unavailable [phone] Inés Lemus RN Unavailable [phone] Karuna Maria OT Unavailable Unavaila eRnu Paul NP Unavailable Eladio Mcrae MD Unavailable [phone] Tamiko Schroeder RN Unavailable [phone] Briana Poe RN Unavailable Encounter Details Date Type Department Care Team (Late st Contact Info) Description 09/07/2021 Orders Only [facility] Scanning, Provider Social History Tobacco Use Types Packs/Day Years Used Date Smoking Tobacco: Former Cigarettes Q uit: 2010 Smokeless Tobacco: Never Comments No Sex and Gender Information Value Date Recorded Sex Assigned at Not on file Legal Sex Female 8:22 AM BILLING ANALYST Gender Identity Female 11/15/2021 2:30 AM CDT [...] documented as of this encounter Care Teams Field Crop Farmworker Relationship Specialty Start Date End Date Maddy Romano MD [address] [place] [address] PCP - General 09/28/16 Astrid Haq NP [address] [place] [address] Nurse Practitioner Radiation Oncology 11/05/18 11/07/22 Manas Ibarra MD [address] [place] [address] Referring Physician Thoracic Surgery 11/05/18 Zion Barton MD [address] [place] [address] Radiation Oncologist Radiation Oncology 05/05/19 Molina Charles MD [address] [facility] [address] [place] [address] Referring Physician Transplant Hepatology 12/15/20 Inés Lemus RN [address] [facility] [address] [place] [address] Acreage Reporter 10/31/21 Karuna Maria OT Occupational Therapist Occupational Therapy 09/20/22 Renu Treviño NP [address] [facility] [address] [place] [address] Nurse Practitioner Radiation Oncology 11/08/22 Eladio Mcrae MD [address] [place], [place] [address] Referring Physician Obstetrics and Gynecology 11/15/22 Tamiko Schroeder RN [address] [place] [address] Acreage Reporter 04/27/24 Briana Poe RN [address] [facility] [address] [place] [address] SHOP Outpatient Buyer Agent 04/30/24 05/28/24 documented as of this encounter
--- OUTSIDE RECORDS SUMMARY | 2024-09-24 03:04 | XMS_ITS | Referral Summary ---
Author Organization [facility] Address [address] [place] [address] Care Team Providers Care Docket Specialist Name Role Phone Unavailable Primary Care Provider Unavailabl e Source Comments [facility],non-owned Affiliates and Associated Physician Practices is amultiple site organization consisting of ambulatory clinics and hospital sitesin [place], [place], [place] and [place]. This disclosure is being madepursuant to the Care Everywhere program and may not contain all information available regarding this patient. Last updated 18.[facility] [employer] Active Problems Problem Noted Date Diagnosed Date Hepatic encephalopathy 04/01/2024 Cerebellar infarct 04/01/2024 Social History Tobacco Use Types Packs/Day Years Used Date Smoking Tobacco: Never Assessed Sex and Gender Information Value Date Recorded Sex Assigned at Not on file Gender Identity Not on file Sexual Orientation Not on file Plan of Treatment Not on file
--- OUTSIDE RECORDS SUMMARY | 2024-09-24 03:04 | XMS_ITS | Referral Summary ---
Author Organization [facility] Address [address] [place] [address] Care Team Providers Care Hand Bulldozer Name Role Phone Maddy Romano MD Primary Care Provider Manas Ibarra MD Unavailable Zion Barton MD Unavailable Molina Charles MD Unavailable [phone] Inés Lemus RN Unavailable [phone] Karuna Maria OT Unavailable UnavailRenu Mueller NP Unavailable [phone] Eladio Mcrae MD Unavailable [phone] Tamiko Schroeder RN Unavailable [phone] Encounters Date Type Department Care Team Description 09/15/2024 Documentation [facility] [address] [facility] 12th [place] [address] [place] [address] Alexandra Issa RN 09/14/2024 Telephone [facility] Transplant Liver [address] [facility] [address] Mailstop [phone] [place] [address] Inés Lemus, RN 09/07/2024 Orders Only [facility] Scanning, Provider 08/30/2024 Telephone [facility] Trans[facility] Liver [address] [facility] [address] Mailstop [phone] [place] [address] Inés Lemus, RN 08/28/2024 Documentation [facility] [address] [facility] 12th [place] [address] [place] [address] Alexandra Issa, TYRA 08/27/2024 1:40 PM TRAFFIC EXPERT Lab [facility] ([facility] [address] [place] [address] LYONS (nonalcoholic steatohepatitis) 08/25/2024 Documentation [facility] [address] [facility] 12th [place] [address] [place] [address] Alexandra Issa, TYRA 08/25/2024 Telephone [facility] Transplant Liver [address] [facility] [address] Mailstop [phone] [place] [address] Inés Lemus, TYRA 08/25/2024 Documentation [facility] [address] [facility] 12th [place] [address] [place] [address] Alexandra Issa, TYRA 08/24/2024 10:00 AM TRAFFIC EXPERT - 08/24/2024 11:59 PM TRAFFIC EXPERT Hospital Encounter [facility] [address] [address] ESRD (end stage renal disease) (CMS/HCC) (HCC) Discharge Disposition: Discharge to home or self care 08/24/2024 Orders Only [facility] Scanning, Provider 08/24/2024 9:00 AM TRAFFIC EXPERT Social Work [facility] [address] [facility], 8th Floor, [place] [address] Ragini Garner LCSW 08/17/2024 Telephone [facility] Transplant Liver [address] [facility] [address] Mailstop [phone] [place] [address] Inés Lemus, TYRA 08/07/2024 Telephone [facility] Transplant Liver [address] [facility] [address] Mailstop [phone] [place] [address] Inés Lemus, TYRA 08/06/2024 4:35 PM TRAFFIC EXPERT Lab [facility] [address] [place] [address] Hepatic encephalopathy (HCC); Type 2 diabetes mellitus with stage 4 chronic kidney disease, with long-term current use of insulin (HCC); Hepatic cirrhosis, unspecified hepatic cirrhosis type, unspecified whether ascites present (HCC); Dysuria 08/06/2024 3:45 PM TRAFFIC EXPERT Office Visit [facility] [address] [place] [address] Medical Office Building [address], [address] [place] [address] Taiwo Vázquez MD Hepatic cirrhosis, unspecified hepatic [...] LYONS (CMS/HCC) (HCC); Dysuria 08/03/[address] [facility] Scanning, Provider 07/31/2024 Documentation [facility] 12th [place] [address] [place] [address] Alexandra Issa RN 07/31/2024 Documentation [facility] Transplant Liver [address] [facility] [address] Mailstop [phone] [place] [address] Chelsea Barker RN 07/31/2024 Orders Only [facility] 12th [place] [address] [place] [address] Alexandra Issa RN 07/30/2024 3:45 PM TRAFFIC EXPERT Lab [facility] ([facility]) [address] [place] [phone] ESRD (end stage renal disease) (CMS/HCC) (HCC); LYONS (nonalcoholic steatohepatitis) 07/24/2024 Telephone [facility] Transplant Liver [address] [facility] [address] Mailstop [phone] [place] [address] Inés Lemus, TYRA 07/24/2024 Telephone [facility] Trans[facility] Liver [address] [facility] [address] Mailstop [phone] [place] [address] Inés Lemus, TYRA 07/22/2024 Documentation [facility] [address] [place] [address] 12th [place] [address] [place] [address] Alexandra Issa RN 07/20/2024 10:00 AM TRAFFIC EXPERT - 07/20/2024 11:59 PM TRAFFIC EXPERT Hospital Encounter [facility] [address] [place] [address] ESRD (end stage renal disease) (CMS/HCC) (HCC) Discharge Disposition: Discharge to home or self care 07/20/2024 Orders Only [facility] Scanning, Provider 07/17/[address] [facility] Specialty Services [address] [place] [address] Mayra Machuca RN 07/17/2024 Telephone [facility] Transplant Liver [address] [facility] [address] Mailstop [phone] [place] [address] Inés Lemus, TYRA 07/15/2024 10:30 AM TRAFFIC EXPERT Office [facility] [address] [place] [address] 12th [place] [address] [place] [phone] Britany Toribio MD Cirrhosis of liver without ascites, unspecified hepatic cirrhosis type (HCC) (Primary Dx) 07/08/2024 Documentation [facility] [address] [facility] 12th [place] [address] [place] [address] Alexandra Issa RN 07/03/2024 Telephone [facility] Transplant Liver [address] [facility] [address] Mailstop [phone] [place] [address] Inés Lemus RN 07/02/2024 Documentation [facility] [address] [facility] 12th [place] [address] [place] [address] Alexandra Issa RN 06/30/2024 2:20 PM TRAFFIC EXPERT Lab [facility] ([facility]) [address] [place] [phone] LYONS (nonalcoholic steatohepatitis) 06/30/2024 11:10 AM TRAFFIC EXPERT 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 1.2 mL Active insulin lispro (HumaLOG, ADMELOG) 100 unit/mL [...] 3 (three) times a day 2700 mL Active zinc sulfate (ZINCATE) 50 mg zinc [...] for nausea or vomiting 30 tablet 1 024 Active thiamine (VITAMIN B-1) 100 mg tablet [...] total) by mouth daily 30 tablet 5 024 Active Linzess 145 mcg capsule TAKE 1 CAPSULE(145 MCG) BY MOUTH DAILY 30 capsule 3 024 Active blood-glucose sensor (Dexcom G6 Sensor) deviceIndications :Type 2 diabetes mellitus with stage 3a chronic kidney disease, unspecified whether fci insulin use (HCC) Will use 1 sensor every 10 days. 1 box = 3 sensors. 3 each 5 025 Active blood-glucose transmitter (Dexcom G6 Transmitter) deviceIndications :Type 2 diabetes mellitus without complication, unspecified whether fci insulin use (HCC) Will use 1 transmitter every 90 days 1 each 1 025 Active spironolactone (ALDACTONE) 100 mg tablet Take 3 tablets (300 mg total) by mouth daily 90 tablet 11 025 2025 Active pen needle, diabetic (BD Ultra-Fine Mini Pen Needle) 31 gauge x 3/16 needleIndications :Type 2 diabetes mellitus without complication, unspecified whether fci insulin use (HCC) USE TO INJECT INSULIN SIX TIMES PER DAY 200 each 025 Active pen needle, diabetic 31 gauge x 316 needleIndications :Type 2 diabetes mellitus without complication, unspecified whether terminal gauger insulin use (HCC) Use to inject insulin 6 times per day. 200 each 11 023 2024 Discontinued spironolactone (ALDACTONE) 50 mg tablet Take 5 [...] 10/10/2022 Assessment & Plan (10/12/2022 12:20 PM TRAFFIC EXPERT): Episode of atrial flutter overnight with RVR up to 140s. Patient asymptomatic, normotensive. IV metoprolol X2 given to achieve rate control. [id number] vasc score of 3. TTE from 09/03 without valvular abnormalities. No new episodes today. Lytes within normal limits. - Continue campus monitor - Continue home dose of metoprolol 25mg BID - Given that patient might be listed for transplant, hepatology would prefer to avoid apixaban. Lovenox is not ideal given her platelet count less than 100. Her INR is too high to consider warfarin. Anemia 10/05/2022 Assessment & Plan (10/11/2022 12:28 PM TRAFFIC EXPERT): - Hgb has down trended from 8 [...] 10/05/2022 Assessment & Plan (10/11/2022 12:45 PM TRAFFIC EXPERT): -Continue home dose of metoprolol 25mg BID Hepatic encephalopathy 07/31/2022 Assessment & Plan (03/06/2023 5:49 PM CDT): Good control on current medical management. No changes indicated. Assessment & Plan (08/03/2022 1:05 PM TRAFFIC EXPERT): Pt with hx of LYONS cirrhosis presenting with progressively worsening mental status over past several weeks. On initial examination patient was AAOx1, on subsequent exam she is now AAOx2 with appropriate responses. NH3 75. Unfortunately no safe area for bedside diagnostic paracentesis. Slurred speech and concerns for swallowing. TIME STUDY ANALYST completed swallow study and normal. Head CT: No acute intracranial abnormality. -Awaiting Liver MRI -Increased Lactulose to 4x daily (only 1 stool on 08/02) - Rifaximin and Lactulose (goal 3-5 bowel movements) - Fall precautions. - PT/OT: Home with assistance. Assessment & Plan (08/02/2022 2:34 PM TRAFFIC EXPERT): Pt with hx of LYONS cirrhosis presenting with progressively worsening mental status over past several weeks. On initial examination patient was AAOx1, on subsequent exam she is now AAOx2 with appropriate responses. NH3 75. Unfortunately no safe area for bedside diagnostic paracentesis. Slurred speech and concerns for swallowing. TIME STUDY ANALYST completed swallow study and normal. Head CT: No acute intracranial abnormality. - Rifaximin and Lactulose (goal 3-5 bowel movements) - Fall precautions. - PT/OT: Home with assistance. - TIME STUDY ANALYST completed bedside swallow and Normal Assessment & Plan (08/01/2022 3:28 PM TRAFFIC EXPERT): Pt with hx of LYONS cirrhosis presenting [...] concerns for swallowing. - Fall precautions. - TIME STUDY ANALYST/PT/OT Consults. Assessment & Plan (08/01/2022 4:16 AM TRAFFIC EXPERT): Pt with hx of LYONS cirrhosis presenting [...] (10/22/2022): Added automatically from request for surgery [id number] Volume overload 10/06/2022 05/29/2024 Assessment & Plan (10/10/2022 1:09 PM TRAFFIC EXPERT): In the setting of LYONS cirrhosis. Diuretics [...] (08/22/2022): Added automatically from request for surgery [id number] Portal vein thrombosis 08/01/202208/22 Assessment & Plan (08/03/2022 1:09 PM TRAFFIC EXPERT): -Apixaban 2.5mg BID Assessment & Plan (08/02/2022 2:39 PM TRAFFIC EXPERT): -Apixaban 2.5mg BID Assessment & Plan (08/01/2022 3:27 PM TRAFFIC EXPERT): -Apixaban 2.5mg BID Assessment & Plan (08/01/2022 4:17 AM TRAFFIC EXPERT): Continue home apixaban LYONS (nonalcoholic steatohepatitis) 11/02/2021 07/15/2024 Abnormal mammogram of right breast 11/02/2020 08/22/2022 Preop cardiovascular exam 09/23/2019 Overview (09/23/2019): Added automatically from request for surgery [id number] Colon cancer screening 04/21/201908/22 Overview (04/21/2019): Added automatically from request for surgery [id number] Esophageal varices without bleeding (CMS/HCC) 04/21/20 19 08/22/2022 Overview (04/21/2019): Added automatically from request for surgery [id number] Steatosis of liver 05/20/2017 [facility] current use of ant icoagulant therapy 07/26/2016 08/22/2022 Neutropenia 07/14/2015 07/15/2024 Portal vein thrombosis 07/14/201508/22 BMI 45.0-49.9, adult 11/18/201405/29/ 024 Hepatic cirrhosis 05/20/2014 10/05/2022 Abnormal magnetic resonance imaging study 05/20/2014 08/22/2022 Biliary colic 05/10/2014 08/22/2022 Lesion of liver 04/30/2014 08/22/2022 Decreased granulocyte count (CMS/HCC) 01/14/2014 07/15/2024 Lymphopenia 03/17/2013 07/15/2024 Rash 03/25/2012 08/22/2022 DM type 2 (diabetes mellitus, type 2) 05/29/2024 Assessment & Plan (10/12/2022 2:58 PM TRAFFIC EXPERT): Previously on dose reduced insulin regimen at [facility] 20u lantus, 7u tid lispro + ssi. - Her blood sugars were initially on the lower side (90-100) in setting of poor po intake and TR. Continue SSI only for now and will uptitrate as needed. - Continue Lantus 10u/daily + lispro 4TID Assessment & Plan (08/03/2022 1:09 PM TRAFFIC EXPERT): Home regimen of toujeo 42 units + SSI. -Lantus, Lispro TID AC and SSI -No Juice Diet -Consistent Carb+ 2gm NA diet. -CTM BGL Assessment & Plan (08/02/2022 2:38 PM TRAFFIC EXPERT): Home regimen of toujeo 42 units + SSI. -Lantus, Lispro TID AC and SSI -No Juice Diet -Consistent Carb+ 2gm NA diet. -CTM BGL Assessment & Plan (08/01/2022 3:26 PM TRAFFIC EXPERT): Home regimen of toujeo 42 units + SSI. Given TR and decreased PO intake, insulin regimen reduced to Lantus 20units. - Continue on 2g Na + DM2 diet - CTM BGL Assessment & Plan (08/01/2022 4:17 AM TRAFFIC EXPERT): Home regimen of toujeo 42 units + [...] Influenza, Trivalent, Preser vative Free, Intramuscular 05/29/2013 Infinia (J&J) SARS-CoV-2 Vaccination 10/17/2020 Pneumococcal Conjugate PCV 13 05/26/2015 Pneumococcal Polysaccharide PPV23 03/24/2014 RSV Vaccine, Pref, Recombina nt, Subunit, Adjuvanted, PF, IM (Arexvy) 12/18/2023 Tdap 03/24/2014 ZOSTER Recombinant 02/17/2020,05/29/2019 Social History Tobacco Use Types Packs/Day Years Used Date Smoking Tobacco: Former Cigarettes 0.5 51 1 970 - 2020 Smokeless Tobacco: Never Tobacco Cessation:Counseling Given: Not Answered [facility] Utilities Answer Date Recorded In the past 12 months has e [employer], [employer], or water [employer] threatened to shut off services in your [...] often do you attend chur ch or catholic services? Never 08/24/2024 Do you belong to any clubs o r organizations such as yazidism groups, unions, fraternal or athletic groups, or [...] place to sleep or slept in a assisted (including now)? No 12/31/2022 Housing Stability Vital Sign Answer Terrance e Recorded In the last 12 months, was t here a time when you were not able to pay the mortgage or rent on time? No 08/24/2024 In the past 12 months, how m any times have you moved where you were living? 0 08/24/2024 At any time in the past 12 m [facility], were you homeless or living in a assisted (including now)? No 08/24/2024 Personal Safety Answer Date Recorded Have you ever been in or are you currently in a harmful physical or emotional relationship or is someone making you feel afraid or unsafe? 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 file Last Filed Vital Signs Vital Sign Reading Time Taken Comments Blood Pressure 122/66 08/06/2024 3:48 PM TRAFFIC EXPERT Pulse 59 08/06/2024 3:48 PM TRAFFIC EXPERT Temperature 36.5 C (97.7 F) 08/06/2024 3:48 PM TRAFFIC EXPERT Respiratory Rate 18 08/06/2024 3:48 PM TRAFFIC EXPERT Oxygen Saturation 100% 08/06/2024 3:48 PM TRAFFIC EXPERT Inhaled Oxygen Concentration - - Weight 117 kg (258 lb) 08/06/2024 3:48 PM TRAFFIC EXPERT Height 170.2 cm (5' 7.01 ) 08/06/2024 3:48 PM CS T Body Mass Index 40.4 08/06/2024 3:48 PM TRAFFIC EXPERT Plan of Treatment Scheduled Procedures Name Priority Associated Diagnoses Date/Ti me COLONOSCOPY Routine adult health maintenance LYONS (nonalcoholic steatohepatitis) Procedures Procedure Name Priority Date/Time Associated Diagnosis Comments SCAN - LABS 09/07/2024 EGFR Routine 08/27/2024 1:35 PM TRAFFIC EXPERT LYONS (nonalcoholic steatohepatitis) COMPREHENSIVE METABOLIC PANEL Routine 08/27/2024 1:35 PM TRAFFIC EXPERT LYONS (nonalcoholic steatohepatitis) PROTIME-INR Routine 08/27/2024 1:35 PM TRAFFIC EXPERT LYONS (nonalcoholic steatohepatitis) HLA ANTIBODY SCREEN BY PRA OR SAB PER SCHEDULE (CLASS I AND CLASS II) Routine 08/24/2024 10:00 AM TRAFFIC EXPERT ESRD (end stage renal disease) (CMS/HCC) (HCC) SCAN - LABS 08/24/2024 URINALYSIS, MICROSCOPIC ONLY Routine 08/06/2024 5:12 PM TRAFFIC EXPERT Dysuria URINALYSIS AND REFLEX TO MICROSCOPIC AND CULTURE Routine 08/06/2024 5:12 PM TRAFFIC EXPERT Dysuria EGFR Routine 08/06/2024 5:04 PM TRAFFIC EXPERT Hepatic cirrhosis, unspecified hepatic cirrhosis type, unspecified whether ascites present (HCC) Hepatic encephalopathy (HCC) DIFFERENTIAL AUTO Routine 08/06/2024 5:0 4 PM TRAFFIC EXPERT Hepatic cirrhosis, unspecified hepatic cirrhosis type, unspecified whether ascites present (HCC) Hepatic encephalopathy (HCC) CBC WITH AUTO DIFFERENTIAL Routine 08/06/2024 5:04 PM TRAFFIC EXPERT Hepatic cirrhosis, unspecified hepatic cirrhosis type, unspecified whether ascites present (HCC) Hepatic encephalopathy (HCC) COMPREHENSIVE METABOLIC PANEL Routine 08/06/2024 5:04 PM TRAFFIC EXPERT Hepatic cirrhosis, unspecified hepatic cirrhosis type, unspecified whether ascites present (HCC) Hepatic encephalopathy (HCC) BILIRUBIN, DIRECT Routine 08/06/2024 5:0 4 PM TRAFFIC EXPERT Hepatic cirrhosis, unspecified hepatic cirrhosis type, unspecified whether ascites present (HCC) Hepatic encephalopathy (HCC) PROTIME-INR Routine 08/06/2024 5:04 PM TRAFFIC EXPERT Hepatic cirrhosis, unspecified hepatic cirrhosis type, unspecified whether ascites present (HCC) Hepatic encephalopathy (HCC) [id number], TUMOR MARKER Routine 08/06/2024 5:04 PM TRAFFIC EXPERT Hepatic cirrhosis, unspecified hepatic cirrhosis type, unspecified whether ascites present (HCC) Hepatic encephalopathy (HCC) HEMOGLOBIN A1C Routine 08/06/2024 5:04 PM TRAFFIC EXPERT Hepatic encephalopathy (HCC) Type 2 diabetes mellitus with stage 4 chronic kidney disease, with long-term current use of insulin (HCC) BLOOD CULTURE Routine 08/06/2024 5:04 PM TRAFFIC EXPERT Hepatic encephalopathy (HCC) SCAN - LABS 08/03/2024 EGFR Routine 07/30/2024 1:25 PM TRAFFIC EXPERT LYONS (nonalcoholic steatohepatitis) COMPREHENSIVE METABOLIC PANEL Routine 07/30/2024 1:25 PM TRAFFIC EXPERT LYONS (nonalcoholic steatohepatitis) DIFFERENTIAL AUTO Routine 07/30/2024 1:1 0 PM TRAFFIC EXPERT LYONS (nonalcoholic steatohepatitis) CBC WITH AUTO DIFFERENTIAL Routine 07/30/2024 1:10 PM TRAFFIC EXPERT LYONS (nonalcoholic steatohepatitis) PROTIME-INR Routine 07/30/2024 1:10 PM TRAFFIC EXPERT LYONS (nonalcoholic steatohepatitis) HLA ANTIBODY SCREEN - SAB (CLASS I AND CLASS II) Routine 07/20/2024 10:00 AM TRAFFIC EXPERT ESRD (end stage renal disease) (CMS/HCC) (HCC) HLA ANTIBODY SCREEN BY PRA OR SAB PER SCHEDULE (CLASS I AND CLASS II) Routine 07/20/2024 10:00 AM TRAFFIC EXPERT ESRD (end stage renal disease) (CMS/HCC) (HCC) SCAN - LABS 07/20/2024 EGFR Routine 06/30/2024 12:36 PM TRAFFIC EXPERT LYONS (nonalcoholic steatohepatitis) DIFFERENTIAL AUTO Routine 06/30/2024 12: 36 PM TRAFFIC EXPERT LYONS (nonalcoholic steatohepatitis) CBC WITH AUTO DIFFERENTIAL Routine 06/30/2024 12:36 PM TRAFFIC EXPERT LYONS (nonalcoholic steatohepatitis) PROTIME-INR Routine 06/30/2024 12:36 PM TRAFFIC EXPERT LYONS (nonalcoholic steatohepatitis) COMPREHENSIVE METABOLIC PANEL Routine 06/30/2024 12:36 PM TRAFFIC EXPERT LYONS (nonalcoholic steatohepatitis) PAP AND HIGH RISK HPV, REFLEX TO GENOTYPING Routine 04/28/2024 10:41 AM CDT SCREENING MAMMOGRAM BILATERAL W PAL IP Routine 04/27/2024 1:55 PM CDT LIPID PANEL Routine 04/22/2024 12:58 AM CDT HEPATITIS C ANTIBODY Routine 06/16/2023 6:09 AM TRAFFIC EXPERT COLONOSCOPY 05/30/2022 9:28 AM CDT ALBUMIN CREATININE RATIO, URINE Routine 03/01/2021 2:45 PM CDT Type 2 diabetes mellitus without complication, unspecified whether terminal gauger insulin use (HCC) from Last 3 Months or Most Recently Relevant to Health Maintenance Results * SCAN - LABS (09/07/2024) us Provider Scanning Final Result * (ABNORMAL) eGFR (08/27/2024 1:35 PM TRAFFIC EXPERT) eGFR 31(L) >=60 mL/min/1. 73 m2 Comment: [...] last reviewed 2021. Blood 08/27/2024 1:35 PM TRAFFIC EXPERT 08/27/2024 1:59 PM TRAFFIC EXPERT Taiwo Vázquez MD LAB BLOOD ORDERABLES Fin al Result [facility] Department [place] [address] * (ABNORMAL) Protime-INR (08/27/2024 1:35 PM TRAFFIC EXPERT) PT 14.1(H) 9.7 - 13.0 sec INR 1.30(H) 0.90 - 1.20 CHARISSA DUNNE Comment: Interpretive data Oral anticoagulant therapeutic ranges: Venous thromboembolism prophylaxis or treatment: 2.0-3.0 CARDIOLOGY Standard range: 2.0-3.0 High-intensity range: 2.5-3.5 Refer to indication-specific guidelines for appropriate target ranges for prosthetic heart valve replacement. Current interpretive data was last revised on 2019. Blood 08/27/2024 1:35 PM TRAFFIC EXPERT 08/27/2024 1:48 PM TRAFFIC EXPERT Taiwo Vázquez MD LAB BLOOD ORDERABLES Fin al Result [facility] [place] [address] * (ABNORMAL) Comprehensive metabolic panel (08/27/2024 1:35 PM TRAFFIC EXPERT) Sodium 136 135 - 145 mmol/L Potassium, pl 3.6 3.3 - 4.9 mmol/L [facility] Chloride 101 97 - 110 mmol/L [facility] CO2 28 22 - 32 mmol/L [facility] Anion gap 7 2 - 15 mmol/L [facility] BUN 29(H) 6 - 25 mg/dL [facility] Creatinine 1.81(H) 0.60 - 1.10 mg/dL [facility] Glucose 293(H) 70 - 199 mg/dL [facility] Comment: Interpretive Data Fasting glucose >/= [...] Calcium 8.9 8.5 - 10.3 mg/dL [facility] Bilirubin, total 2.4(H) 0.1 - 1.2 mg/dL [facility] Protein, pl 6.1(L) 6.5 - 8.5 g/dL [facility] Albumin 3.0(L) 3.5 - 5.0 g/dL [facility] Alk phos 100 40 - 130 Units/L [facility] ALT 21 7 - 45 Units/L [facility] AST 31 10 - 45 Units/L [facility] Blood 08/27/2024 1:35 PM TRAFFIC EXPERT 08/27/2024 1:48 PM TRAFFIC EXPERT Taiwo Vázquez MD LAB BLOOD ORDERABLES Fin al Result [facility] Department [place] [address] * HLA Antibody Screen by PRA or SAB per Schedule (Class I and Class II) (08/24/2024 10:00 AM TRAFFIC EXPERT) Blood 08/24/2024 10:0 0 AM TRAFFIC EXPERT Narrative [facility] - TRAFFIC EXPERT Sample received in lab and stored. No testing performed at this time. Timothy Pardo MD LAB BLOOD ORDERABL ES Final Result Performing Organization Address [facility] Co de Phone Number [facility] * SCAN - LABS (08/24/2024) Provider Scanning Final Result * (ABNORMAL) Urinalysis reflex to microscopic and culture Urine (08/06/2024 5:12 PM TRAFFIC EXPERT) Color, ur Straw Yellow Clarity, ur Clear [...] tendency for uric acid stone formation. Source: [place] [facility] Current Interpretive Data was last revised on [...] Reflex to microscopic UA will be performed. [facility] Urine 08/06/2024 5:12 PM TRAFFIC EXPERT 08/06/2024 5:24 PM TRAFFIC EXPERT Taiwo Vázquez MD LAB MICROBIOLOGY - GENER AL ORDERABLES Final Result Performing Organization Address [facility] Co de Phone Number CHARISSA SOLER [phone] [address] [address] * (ABNORMAL) Urinalysis, microscopic only (08/06/2024 5:12 PM TRAFFIC EXPERT) WBC, ur 6-10(A) 0 - 5 /HPF RBC, ur 3-5(A) 0 - 2 /HPF [facility] Epithelial cells, squamous, ur 1-5 0 - 5 /HPF [facility] Mucous, ur Present(A) [facility] Hyaline casts, ur 11-20(A) 0 - 10 /LPF [facility] Culture Reflex Comment Reflex conditions for urine culture (WBC >10) not met. CHARISSA [facility] Urine 08/06/2024 5:12 PM TRAFFIC EXPERT 08/06/2024 5:24 PM TRAFFIC EXPERT Taiwo Vázquez MD LAB URINE ORDERABLES Fin al Result Performing Organization Address [facility]/ZIP Co de Phone Number CHARISSA SOLER [phone] [address] [address] * (ABNORMAL) eGFR (08/06/2024 5:04 PM TRAFFIC EXPERT) eGFR 34(L) >=60 mL/min/1. 73 m2 Comment: [...] last reviewed 2021. Blood 08/06/2024 5:04 PM TRAFFIC EXPERT 08/06/2024 5:24 PM TRAFFIC EXPERT us Taiwo Vázquez MD LAB BLOOD ORDERABLES Fin al Result [facility] [address] [facility]. [place] [address] * (ABNORMAL) Differential, auto (08/06/2024 5:04 PM TRAFFIC EXPERT) Neutrophil abs 2.8 1.5 - 6.5 K/cumm Imm gran abs 0.0 0.0 - 0.1 K/cumm [facility] Lymphocyte abs 1.3 0.8 - 3.3 K/cumm [facility] Monocyte abs 0.5 0.2 - 0.8 K/cumm [facility] Eosinophil abs 0.9(H) 0.0 - 0.5 K/cumm [facility] Basophil abs 0.0 0.0 - 0.1 K/cumm [facility] Neutrophil pct 50.9 % CHARISSA ELIAS Comment: Interpretive Data Percent cell count reference ranges are not reported, since discordance with absolute values may lead to misinterpretation of CBC data. Current Interpretive Data was last revised on 2017. Imm gran pct 0.4 % CHARISSA SOLER Comment: Interpretive Data Percent cell count reference ranges are not reported, since discordance with absolute values may lead to misinterpretation of CBC data. Current Interpretive Data was last revised on 2017. Lymphocyte pct 23.9 % [facility] Comment: Interpretive Data Percent cell count reference ranges are not reported, since discordance with absolute values may lead to misinterpretation of CBC data. Current Interpretive Data was last revised on 2017. Monocyte pct 8.2 % [facility] Comment: Interpretive Data Percent cell count reference ranges are not reported, since discordance with absolute values may lead to misinterpretation of CBC data. Current Interpretive Data was last revised on 2017. Eosinophil pct 16.2 % [facility] Comment: Interpretive Data Percent cell count reference ranges are not reported, since discordance with absolute values may lead to misinterpretation of CBC data. Current Interpretive Data was last revised on 2017. Basophil pct 0.4 % [facility] Comment: Interpretive Data Percent cell count reference ranges are not reported, since discordance with absolute values may lead to misinterpretation of CBC data. Current Interpretive Data was last revised on 2017. Blood 08/06/2024 5:04 PM TRAFFIC EXPERT 08/06/2024 5:24 PM TRAFFIC EXPERT us Taiwo Vázquez MD LAB BLOOD ORDERABLES Fin al Result CHARISSA DUNNEWCH [address] [facility]. Department of Laboratories [place], [place] [id number] * (ABNORMAL) CBC with auto differential (08/06/2024 5:04 PM TRAFFIC EXPERT) Pathologist [facility] WBC 5.5 3.8 - 9.9 K/cumm Hgb 12.3 11.9 - 15.5 g/dL CHARISSA [facility] Hct 35.1(L) 35.6 - 45.5 % [facility] Plt 77(L) 150 - 400 K/cumm [facility] MPV 11.6 9.1 - 12.[address] [facility] RBC 3.82(L) 3.90 - 5.20 M/cumm [facility] MCV 91.9 81.3 - 96.4 fL CHARISSA ELIAS MCH 32.2 27.1 - 33.3 pg CHARISSA ELIAS MCHC 35.0 32.3 - 35.7 g/dL CHARISSA ELIAS RDW CV 15.7(H) 11.1 - 14.9 % CHRAISSA ELIAS RDW SD 52.0(H) 35.7 - 48.1 fL CHARISSA ELIAS NRBC abs 0.00 0.00 - 0.01 K/cumm [facility] Blood 08/06/2024 5:04 PM TRAFFIC EXPERT 08/06/2024 5:24 PM TRAFFIC EXPERT us Taiwo Vázquez MD LAB BLOOD ORDERABLES Fin al Result CHARISSA ELIAS [address] [facility]. [place] [address] * [id number], Tumor Marker (08/06/2024 5:04 PM TRAFFIC EXPERT) alpha Fetoprotein <1.8 <=8.3 ng/mL Comment: Interpretive [...] 2018;[id number] Katya House et al. Clin Chem 2014;[id number]. Current interpretive data was last revised 2022. Testing performed by: [facility], [address] [place] [address], [place]., [address] Blood 08/06/2024 5:04 PM TRAFFIC EXPERT 08/06/2024 8:14 PM TRAFFIC EXPERT Taiwo Vázquez MD LAB BLOOD ORDERABLES Fin al Result Performing Organization Address [facility] de Phone Number CHARISSA DUNNECH [address] [address] [facility] [place] [address] * Blood culture Blood (08/06/2024 5:04 PM TRAFFIC EXPERT) Report Final Report: No growth Comment:Testing performed by : [facility], [address] [place] [address]., [id number] Blood 08/06/2024 5:04 PM TRAFFIC EXPERT 08/07/2024 12:05 PM TRAFFIC EXPERT Narrative CHARISSA [facility] - 08/12/2024 1:01 PM TRAFFIC EXPERT Interpretive Data 1. Blood cultures are incubated and monitored continuously for 5 days (120 hours). The first negative report is issued within 24 hours of receipt in the laboratory. 2. All positive cultures are resulted and called to physicians/care providers as soon as they are detected. 3. A rapid molecular test for organism identification may be performed using the [employer]) Blood Culture Identification panel. This assay detects microbial DNA in a blood culture broth. This assay has been cleared by the [place] Food and Drug Administration and its performance characteristics have been verified by the [facility]. Interpretive data was last revised on September 13, 2022. Taiwo Vázquez MD LAB MICROBIOLOGY - GENER AL ORDERABLES Final Result Performing Organization Address [facility] de Phone Number CHARISSA [facility] [address] [address] [facility]. [facility] [place] [address] * (ABNORMAL) Protime-INR (08/06/2024 5:04 PM TRAFFIC EXPERT) PT 14.1(H) 9.7 - 13.0 sec INR 1.30(H) 0.90 - 1.20 CHARISSA DUNNEWCH Comment: Interpretive data Oral anticoagulant therapeutic ranges: Venous thromboembolism prophylaxis or treatment: 2.0-3.0 CARDIOLOGY Standard range: 2.0-3.0 High-intensity range: 2.5-3.5 Refer to indication-specific guidelines for appropriate target ranges for prosthetic heart valve replacement. Current interpretive data was last revised on 2019. Blood 08/06/2024 5:04 PM TRAFFIC EXPERT 08/06/2024 5:24 PM TRAFFIC EXPERT Taiwo Vázquez MD LAB BLOOD ORDERABLES Fin al Result Performing Organization Address [facility] de Phone Number [facility] [phone] [facility]. [facility] [place] [address] * (ABNORMAL) Hemoglobin A1c (08/06/2024 5:04 PM TRAFFIC EXPERT) Hgb A1C 8.4(H) 4.0 - 5.6 % Estimated Average Glucose 194 mg/dL CHARISSA ELIAS Comment: The ADA recommends reporting an estimated Average Glucose (eAG) with all Hemoglobin A1c results using the equation derived from a study of 507 normal and diabetic adults. Minority populations were underrepresented and children were not included. (Diabetes Care 31:6886-5179, 2008). The eAG is not equivalent to a fasting glucose. Blood 08/06/2024 5:04 PM TRAFFIC EXPERT 08/06/2024 5:24 PM TRAFFIC EXPERT Taiwo Vázquez MD LAB BLOOD ORDERABLES Fin al Result Performing Organization Address [facility] de Phone Number [facility] [address] [facility] [facility] [place] [address] * (ABNORMAL) Bilirubin, direct (08/06/2024 5:04 PM TRAFFIC EXPERT) Bilirubin, direct 0.6(H) 0.1 - 0.3 mg/dL Blood 08/06/2024 5:04 PM TRAFFIC EXPERT 08/06/2024 5:24 PM TRAFFIC EXPERT Taiwo Vázquez MD LAB BLOOD ORDERABLES Fin al Result Performing Organization Address [facility] de Phone Number [facility] [address] [address] [place] [address] * (ABNORMAL) Comprehensive metabolic panel (08/06/2024 5:04 PM TRAFFIC EXPERT) Sodium 134(L) 135 - 145 mmol/L Potassium, [...] Units/L [facility] Blood 08/06/2024 5:04 PM TRAFFIC EXPERT 08/06/2024 5:24 PM TRAFFIC EXPERT Taiwo Vázquez MD LAB BLOOD ORDERABLES Fin al Result CHARISSA DUNNECH [address] [facility]. [place] [address] * SCAN - LABS (08/03/2024) us Provider Scanning Final Result * (ABNORMAL) eGFR (07/30/2024 1:25 PM TRAFFIC EXPERT) eGFR 36(L) >=60 mL/min/1. 73 m2 Comment: [...] last reviewed 2021. Blood 07/30/2024 1:25 PM TRAFFIC EXPERT 07/30/2024 1:39 PM TRAFFIC EXPERT Taiwo Vázquez MD LAB BLOOD ORDERABLES Fin al Result CHARISSA DUNNE [facility] [place] [address] * (ABNORMAL) Comprehensive metabolic panel (07/30/2024 1:25 PM TRAFFIC EXPERT) Sodium 133(L) 135 - 145 mmol/L Potassium, pl 4.5 3.3 - 4.9 mmol/L [facility] Chloride 96(L) 97 - 110 mmol/L [facility] CO2 29 22 - 32 mmol/L [facility] Anion gap 8 2 - 15 mmol/L [facility] BUN 31(H) 6 - 25 mg/dL [facility] Creatinine 1.59(H) 0.60 - 1.10 mg/dL [facility] Glucose 327(H) 70 - 199 mg/dL [facility] Comment: Interpretive Data Fasting glucose >/= [...] 2022. Calcium 9.7 8.5 - 10.3 mg/dL [facility] Bilirubin, total 2.2(H) 0.1 - 1.2 mg/dL [facility] Protein, pl 6.6 6.5 - 8.5 g/dL [facility] Albumin 3.2(L) 3.5 - 5.0 g/dL [facility] Alk phos 117 40 - 130 Units/L [facility] ALT 36 7 - 45 Units/L [facility] AST 42 10 - 45 Units/L [facility] Blood 07/30/2024 1:25 PM TRAFFIC EXPERT 07/30/2024 1:36 PM TRAFFIC EXPERT us Taiwo Vázquez MD LAB BLOOD ORDERABLES Fin al Result [facility] [place] [address] * (ABNORMAL) Differential, auto (07/30/2024 1:10 PM TRAFFIC EXPERT) Neutrophil abs 2.8 1.5 - 6.5 K/cumm Imm gran abs 0.0 0.0 - 0.1 K/cumm [facility] Lymphocyte abs 1.1 0.8 - 3.3 K/cumm [facility] Monocyte abs 0.5 0.2 - 0.8 K/cumm [facility] Eosinophil abs 0.8(H) 0.0 - 0.5 K/cumm [facility] Basophil abs 0.0 0.0 - 0.1 K/cumm [facility] Neutrophil pct 52.8 % [facility] Comment: Interpretive Data Percent cell count reference ranges are not reported, since discordance with absolute values may lead to misinterpretation of CBC data. Current Interpretive Data was last revised on 2017. Imm gran pct 0.2 % [facility] Comment: Interpretive Data Percent cell count reference ranges are not reported, since discordance with absolute values may lead to misinterpretation of CBC data. Current Interpretive Data was last revised on 2017. Lymphocyte pct 21.2 % [facility] Comment: Interpretive Data Percent cell count reference ranges are not reported, since discordance with absolute values may lead to misinterpretation of CBC data. Current Interpretive Data was last revised on 2017. Monocyte pct 10.1 % [facility] Comment: Interpretive Data Percent cell count reference ranges are not reported, since discordance with absolute values may lead to misinterpretation of CBC data. Current Interpretive Data was last revised on 2017. Eosinophil pct 14.9 % [facility] Comment: Interpretive Data Percent cell count reference ranges are not reported, since discordance with absolute values may lead to misinterpretation of CBC data. Current Interpretive Data was last revised on 2017. Basophil pct 0.8 % [facility] Comment: Interpretive Data Percent cell count reference ranges are not reported, since discordance with absolute values may lead to misinterpretation of CBC data. Current Interpretive Data was last revised on 2017. Blood 07/30/2024 1:10 PM TRAFFIC EXPERT 07/30/2024 1:36 PM TRAFFIC EXPERT us Taiwo Vázquez MD LAB BLOOD ORDERABLES Fin al Result [facility] [place] [address] * (ABNORMAL) CBC with auto differential (07/30/2024 1:10 PM TRAFFIC EXPERT) Pathologist [facility] WBC 5.2 3.8 - 9.9 K/cumm Hgb 12.6 11.9 - 15.5 g/dL [facility] Hct 37.1 35.6 - 45.5 % [facility] Plt 64(L) 150 - 400 K/cumm [facility] MPV 12.3 9.1 - 12.3 fL [facility] RBC 4.07 3.90 - 5.20 M/cumm [facility] MCV 91.2 81.3 - 96.4 fL [facility] MCH 31.0 27.1 - 33.3 pg [facility] MCHC 34.0 32.3 - 35.7 g/dL [facility] RDW CV 15.4(H) 11.1 - 14.9 % [facility] RDW SD 51.0(H) 35.7 - 48.1 fL [facility] NRBC abs 0.00 0.00 - 0.01 K/cumm [facility] Blood 07/30/2024 1:10 PM TRAFFIC EXPERT 07/30/2024 1:36 PM TRAFFIC EXPERT Taiwo Vázquez MD LAB BLOOD ORDERABLES Fin al Result [facility] [place] [address] * (ABNORMAL) Protime-INR (07/30/2024 1:10 PM TRAFFIC EXPERT) Pathologist [facility] PT 15.1(H) 9.7 - 13.0 sec INR 1.39(H) 0.90 - 1.20 [facility] Comment: Interpretive data Oral anticoagulant therapeutic ranges: Venous thromboembolism prophylaxis or treatment: 2.0-3.0 CARDIOLOGY Standard range: 2.0-3.0 High-intensity range: 2.5-3.5 Refer to indication-specific guidelines for appropriate target ranges for prosthetic heart valve replacement. Current interpretive data was last revised on 2019. Blood 07/30/2024 1:10 PM TRAFFIC EXPERT 07/30/2024 1:36 PM TRAFFIC EXPERT us Taiwo Vázquze MD LAB BLOOD ORDERABLES Fin al Result CHARISSA SAHNI [facility] [place] [address] * HLA Antibody Screen by PRA or SAB per Schedule (Class I and Class II) (07/20/2024 10:00 AM TRAFFIC EXPERT) Blood 07/20/2024 10:0 0 AM TRAFFIC EXPERT Narrative [facility] - TRAFFIC EXPERT Sample received in lab. Single Antigen Antibody Screen ordered. us Timothy Pardo MD LAB BLOOD ORDERABL ES Final Result [facility] * HLA Antibody Screen - SAB (Class I and Class II) (07/20/2024 10:00 AM TRAFFIC EXPERT) Class I Treatment EDTA [facility] Class I [...] DR12, DR52 [facility] 07/20/2024 10:0 0 AM TRAFFIC EXPERT 07/23/2024 10:09 AM TRAFFIC EXPERT Narrative [facility] - 07/23/2024 10:09 AM TRAFFIC EXPERT Single-antigen HLA antibody screen is performed on serum samples using a method developed and validated by the [facility] HLA laboratory based on an FDA-approved IVD kit (LABScreen Single-Antigen, [employer], [place], [place]). All patient serum samples are pretreated with EDTA before the screen to prevent complement interference. Additional serum treatments, such as adsorption and DTT treatment, may be performed as indicated. Interpretive comments: Low risk: MFI [id number]. Moderate risk: MFI [id number]. Increased risk: MFI >/= 5000. The presence [...] antigens to avoid. Testing performed at the [facility] Laboratory, [address] [place] [address], 5th floor, [place], [address]. [place] # [id number]. Rani Smith, Ph.D., Take Down Inspector, HLA Laboratory Aurelio Palafox M.D., Ph.D., Script Artist, HLA Laboratory Norma Talamantes, Ph.D., CLIA Script Artist, [facility] Clinical Laboratories Current methodology and interpretive comments last revised on 09/06/2022. us Timothy Pardo MD LAB BLOOD ORDERABL ES Final Result Performing Organization Address [facility]/ZIP Co de Phone Number [facility] * SCAN - LABS (07/20/2024) Provider Scanning Edited Result - Final * (ABNORMAL) eGFR (06/30/2024 12:36 PM TRAFFIC EXPERT) eGFR 32(L) >=60 mL/min/1. 73 m2 Comment: [...] reviewed 2021. Blood 06/30/2024 12:3 6 PM TRAFFIC EXPERT 06/30/2024 1:06 PM TRAFFIC EXPERT Taiwo Vázquez MD LAB BLOOD ORDERABLES Fin al Result [facility] [place] [address] * (ABNORMAL) Differential, auto (06/30/2024 12:36 PM TRAFFIC EXPERT) Neutrophil abs 2.7 1.5 - 6.5 K/cumm Imm gran abs 0.0 0.0 - 0.1 K/cumm CHARISSA [facility] Lymphocyte abs 1.0 0.8 - 3.3 K/cumm [facility] Monocyte abs 0.5 0.2 - 0.8 K/cumm [facility] Eosinophil abs 0.7(H) 0.0 - 0.5 K/cumm [facility] Basophil abs 0.0 0.0 - 0.1 K/cumm [facility] Neutrophil pct 54.6 % [facility] Comment: Interpretive Data Percent cell count reference ranges are not reported, since discordance with absolute values may lead to misinterpretation of CBC data. Current Interpretive Data was last revised on 2017. Imm gran pct 0.2 % [facility] Comment: Interpretive Data Percent cell count reference ranges are not reported, since discordance with absolute values may lead to misinterpretation of CBC data. Current Interpretive Data was last revised on 2017. Lymphocyte pct 21.3 % [facility] Comment: Interpretive Data Percent cell count reference ranges are not reported, since discordance with absolute values may lead to misinterpretation of CBC data. Current Interpretive Data was last revised on 2017. Monocyte pct 10.0 % [facility] Comment: Interpretive Data Percent cell count reference ranges are not reported, since discordance with absolute values may lead to misinterpretation of CBC data. Current Interpretive Data was last revised on 2017. Eosinophil pct 13.5 % [facility] Comment: Interpretive Data Percent cell count reference ranges are not reported, since discordance with absolute values may lead to misinterpretation of CBC data. Current Interpretive Data was last revised on 2017. Basophil pct 0.4 % [facility] Comment: Interpretive Data Percent cell count reference ranges are not reported, since discordance with absolute values may lead to misinterpretation of CBC data. Current Interpretive Data was last revised on 2017. Blood 06/30/2024 12:3 6 PM TRAFFIC EXPERT 06/30/2024 12:59 PM TRAFFIC EXPERT us Taiwo Vázquez MD LAB BLOOD ORDERABLES Fin al Result [facility] [place] [address] * (ABNORMAL) CBC with auto differential (06/30/2024 12:36 PM TRAFFIC EXPERT) Pathologist [facility] WBC 4.9 3.8 - 9.9 K/cumm Hgb 12.5 11.9 - 15.5 g/dL [facility] Hct 37.3 35.6 - 45.5 % [facility] Plt 59(L) 150 - 400 K/cumm [facility] MPV 11.7 9.1 - 12.3 fL [facility] RBC 4.02 3.90 - 5.20 M/cumm [facility] MCV 92.8 81.3 - 96.4 fL [facility] MCH 31.1 27.1 - 33.3 pg [facility] MCHC 33.5 32.3 - 35.7 g/dL [facility] RDW CV 15.4(H) 11.1 - 14.9 % [facility] RDW SD 52.5(H) 35.7 - 48.1 fL [facility] NRBC abs 0.00 0.00 - 0.01 K/cumm [facility] Blood 06/30/2024 12:3 6 PM TRAFFIC EXPERT 06/30/2024 12:59 PM TRAFFIC EXPERT us Taiwo Vázquez MD LAB BLOOD ORDERABLES Fin al Result [facility] [place] [address] * (ABNORMAL) Protime-INR (06/30/2024 12:36 PM TRAFFIC EXPERT) Pathologist [facility] PT 13.4(H) 9.7 - 13.0 sec INR 1.24(H) 0.90 - 1.20 [facility] Comment: Interpretive data Oral anticoagulant therapeutic ranges: Venous thromboembolism prophylaxis or treatment: 2.0-3.0 CARDIOLOGY Standard range: 2.0-3.0 High-intensity range: 2.5-3.5 Refer to indication-specific guidelines for appropriate target ranges for prosthetic heart valve replacement. Current interpretive data was last revised on 2019. Blood 06/30/2024 12:3 6 PM TRAFFIC EXPERT 06/30/2024 12:59 PM TRAFFIC EXPERT us Taiwo Vázquez MD LAB BLOOD ORDERABLES Fin al Result [facility] [place] [address] * (ABNORMAL) Comprehensive metabolic panel (06/30/2024 12:36 PM TRAFFIC EXPERT) Sodium 135 135 - 145 mmol/L Potassium, pl 4.4 3.3 - 4.9 mmol/L [facility] Chloride 100 97 - 110 mmol/L [facility] CO2 28 22 - 32 mmol/L [facility] Anion gap 7 2 - 15 mmol/L [facility] BUN 28(H) 6 - 25 mg/dL [facility] Creatinine 1.77(H) 0.60 - 1.10 mg/dL [facility] Glucose 199 70 - 199 mg/dL [facility] Comment: Interpretive Data Fasting glucose >/= [...] Calcium 9.3 8.5 - 10.3 mg/dL [facility] Bilirubin, total 2.0(H) 0.1 - 1.2 mg/dL [facility] Protein, pl 6.4(L) 6.5 - 8.5 g/dL [facility] Albumin 3.2(L) 3.5 - 5.0 g/dL [facility] Alk phos 115 40 - 130 Units/L [facility] ALT 36 7 - 45 Units/L [facility] AST 39 10 - 45 Units/L [facility] Blood 06/30/2024 12:3 6 PM TRAFFIC EXPERT 06/30/2024 12:59 PM TRAFFIC EXPERT us Taiwo Vázquez MD LAB BLOOD ORDERABLES Fin al Result CHARISSA [facility] [place] [address] * Pap and High Risk HPV and Genotyping (Cytology Component) (04/28/2024 10:41 AM CDT) Thin prep (Pap test) 04/28/2024 10:41 AM CDT 04/28/2024 1:00 PM CDT Narrative PATHOLOGY [facility] - 05/04/2024 4:21 PM CDT EPIC results best viewed via link to PDF [facility] [place] [address] Note to Patients: This report may contain [...] Gender: Michelle : 1960 (Age: 63) Address: [address] [place] [address] Hospital #: [id number] Service: Medical Location: [place] [address] Patient Type: [facility] Inpatient Taken: 04/28/2024 Received: 04/28/2024 Accessioned: 04/28/2024 [...] this test have been verified by the [facility] Molecular Infectious Disease laboratory. Correlate [...] clinical information and biopsy results as indicated. [facility] Clinical Laboratory Improvement Amendments (CLIA) mandate that cytologic and histologic results be correlated for laboratory quality facilitator & improvement standards. FOR ALL HIGH-GRADE CASES [...] determined by the Surgical Pathology Department at [facility] as part of an ongoing supplier quality program and in compliance with federally mandated [...] determined by the Surgical Pathology Department of [facility]. It has not been cleared or approved by the U. S. Food and Drug Administration. Eladio Carey MD LAB CYTOLOGY ORDERABLES Final Result PATHOLOGY [facility] 3rd Floor [place], [place] [phone] * Screening Mammogram Bilateral W Pal (04/27/2024 1:55 PM CDT) Anatomical Region Laterality Modality Breast Bilateral Mammography Narrative 04/27/2024 1:52 PM CDT Mammogram Technique: Bilateral Digital Breast Tomosynthesis, Bilateral C-view 2D Screening mammogram. Views obtained: bilateral craniocaudal and bilateral mediolateral oblique. Computer Aided Detection was performed. Mammogram Findings: The present examination has been compared to prior imaging studies performed at [facility] on 05/15/2021 and 12/06/2021. There [...] compared to prior imaging studies performed at [facility] on 05/15/2021 and 12/06/2021. There are scattered areas of fibroglandular density. There is no suspicious abnormality in either breast. Impression: There is no mammographic evidence of malignancy. Annual screening mammography is recommended. OVERALL FINAL ASSESSMENT: BI-RADS CATEGORY 1: Negative. Benton Tomas MD IMG MAMMO PROCEDURES Fi [...] revised on 2018. Triglycerides 43 <=149 mg/dL [facility] Comment: Interpretive Data Ages < [...] revised on 2018. HDL 64 >=40 mg/dL [facility] Comment: Interpretive Data Ages < [...] 2018. LDL, calculated 47 <=129 mg/dL [facility]IS[facility] Comment: Interpretive Data Ages < or = [...] revised on 2024. Non-HDL Cholesterol 58 mg/dL [facility] Comment: Interpretive Data Ages < or = [...] last revised on 2018. Chol/HDL ratio [address] [facility] Blood 04/22/2024 12:5 8 AM CDT 04/22/2024 3:00 AM CDT John Paul Reddy MD LAB BLOOD ORDERABLES Final Resul t Performing Organization Address City/State/[facility] Co de Phone Number CHARISSA [facility] [place] [address] * Hepatitis C antibody Blood (06/16/2023 6:09 AM TRAFFIC EXPERT) Hep C Ab Nonreactive Nonreactive [facility] Comment:Antibodies to HCV no t detected. Does NOT exclude the possibility of recent exposure to HCV. Current interpretive data was last revised on 22 Blood 06/16/2023 6:09 AM TRAFFIC EXPERT 06/16/2023 6:35 AM TRAFFIC EXPERT Alejandro Frazier MD LAB MICROBIOLOGY - GENERAL ORDERABLES Final Result Performing Organization Address [facility] Co de Phone Number CHARISSA [facility] [place] [address] * COLONOSCOPY (05/30/2022 9:28 AM CDT) Anatomical Region Laterality Modality Other Narrative Procedure Note Pat Robins MD - 05/30/2022 9:28 AM CDT [facility] Patient Name: Aleah Levine Procedure Date: 05/30/2022 9:28 AM Date of : 1960 Admit Type: Outpatient Age: 61 Gender: Female Attending MD: Pat Robins M.D. Room: [facility] ENDOSCOPY ROOM 3 Note Status: Finalized Procedure: [...] The scope was passed under direct vision.The [facility] [id number] endoscope was introducedthrough the anus and [...] On: 05/30/2022 9:28 AM Recognized by the [place] [employer] for promoting quality in endoscopy Pat Robins MD ENDOSCOPY PROCEDURES Ju l Result * Albumin Creatinine Ratio, Urine (03/01/2021 2:45 PM CDT) Albumin Ur <12.0 mg/L [facility] Comment: Interpretive Data No reference range established. Current interpretive data was last revised 2018. Creatinine Ur 59.5 mg/dL CHARIS[facility] Comment: Interpretive Data No reference range established. Current interpretive data was last revised 2018. Albumin Creatinine Ratio, Ur <20 1 - 29 mg/g [facility] Urine 03/01/2021 2:45 PM CDT 03/01/2021 3:41 PM CDT Oly Baker MD LAB URINE ORDER RAV[place] Final Result CHARISSA [facility] [place] [address] from Last 3 Months or Most Recently Relevant to Health Maintenance Insurance [facility] EPO Home Team Therapy [place] ANTH ACCESS Home Team Therapy [facility] TRANSPLANT [employer] MEDICARE SOLUTIONS MEDICARE SOLUTIONS TRANSPLANT [employer] MED[employer]ARE RISK TRANSPLANT [employer] MED[employer] RISK TRANSPLANT [employer] MED[employer] RISK Advance Directives For more information, please contact: [phone] * Full Code (Latest Code Status on [...] 3:22 PM 01/03/2023 6:29 PM Care Teams Hand Bulldozer Relationship Specialty Start Date End Date Maddy Romano MD [address] [place] [address] PCP - General 09/28/16 Manas Ibarra MD [address] [place], [place] [address] Referring Physician Thoracic Surgery 11/05/18 Zion Barton MD [address] [place], [place] [address] Radiation Oncologist Radiation Oncology 05/05/19 Molina Charles MD 1 [facility] [address] [place] [address] Referring Physician Transplant Hepatology 12/15/20 Inés Lemus, TYRA [address] [facility] [address] [place] [address] Gas Meter Installer 10/31/21 Karuna Maria OT Occupational Therapist Occupational Therapy 09/20/22 Renu Treviño NP [address] [facility] [address] [place] [address] Nurse Practitioner Radiation Oncology 11/08/22 Eladio Mcrae MD [address] [place] [address] Referring Physician Obstetrics and Gynecology 11/15/22 Tamiko Schroeder, TYRA [address] [place], [place] [address] Gas Meter Installer 04/27/24
--- OUTSIDE RECORDS SUMMARY | 2024-09-24 03:04 | XMS_ITS | Clinical Summary ---
Author Organization [facility] Address [address] [place] [address] Care Team Providers Care Surgical Garment Assembler Name Role Phone Unavailable Primary Care Provider Unavailabl e Source Comments [facility],non-owned Affiliates and Associated Physician Practices is amultiple site organization consisting of ambulatory clinics and hospital sitesin [place], [place], [place] and [place]. This disclosure is being madepursuant to the Care Everywhere program and may not contain all information available regarding this patient. Last updated 18.[facility] Active Problems Problem Noted Date Diagnosed Date [...]
--- OUTSIDE RECORDS SUMMARY | 2024-09-24 03:04 | XMS_ITS | Patient Health Summary ---
Author Organization [facility] Address [address] [place] [address] Care Team Providers Care Carton Gluing Machine Operator Name Role Phone Unavailable Primary Care Provider Unavailabl e Note from [facility],non-owned Affiliates and Associated Physician Practices is amultiple site organization consisting of ambulatory clinics and hospital sitesin [place], [place], [place] and [place]. This disclosure is being madepursuant to the Care Everywhere program and may not contain all information available regarding this patient. Last updated 18.[facility] Active Problems Problem Noted Date Diagnosed Date Hepatic encephalopathy 04/01/2024 Cerebellar infarct 04/01/2024 Social History Tobacco Use Types Packs/Day Years Used Date Smoking Tobacco: Never Assessed Sex and Gender Information Value Date Recorded Sex Assigned at Not on file Gender Identity Not on file Sexual Orientation Not on file
--- OUTSIDE RECORDS SUMMARY | 2024-09-24 03:04 | XMS_ITS | Encounter Summary ---
Author Organization [facility] Address [address] [place] [address] Care Team Providers Care House Furnishings Supervisor Name Role Phone Maddy Romano MD Primary Care Provider + [phone] Manas Ibarra MD Unavailable Zion Barton MD Unavailable Molina Charles MD Unavailable [phone] Inés Lemus RN Unavailable [phone] Karuna Maria OT Unavailable Unavaila Renu Paul NP Unavailable [phone] Eladio Mcrae MD Unavailable [phone] Tamiko Schroeder RN Unavailable [phone] Briana Poe RN Unavailable [phone] Encounter Details Date Type Department Care Team (Late st Contact Info) Description 05/11/2024 Telephone [facility] [address] [place] [address] Ragini Wheeler, TYRA Social History [...] often do you attend chur ch or pentecostal services? Never 04/30/2024 Do you belong to any clubs o r organizations such as baptism groups, unions, fraternal or athletic groups, or [...] place to sleep or slept in a fci (including now)? No 12/31/2022 Housing Stability Vital Sign Answer Terrance e Recorded In the last 12 months, was t here a time when you were not able to pay the mortgage or rent on time? No 04/30/2024 In the past 12 months, how m any times have you moved where you were living? 0 04/30/2024 At any time in the past 12 m [facility], were you homeless or living in a fci (including now)? No 04/30/2024 Personal Safety Answer Date Recorded Have you ever been in or are you currently in a harmful physical or emotional relationship or is someone making you feel afraid or unsafe? Denies 04/21/2024 Comments No Sex and Gender Information Value Date Recorded Sex Assigned at Not on file Legal Sex Female 8:22 AM COIL FORMER Gender Identity Female 11/15/2021 2:30 AM CDT [...] on filedocumented in this encounter Care Teams House Furnishings Supervisor Relationship Specialty Start Date End Date Maddy Romano MD [address] [place] [address] PCP - General 09/28/16 Manas Ibarra MD [address] [place], [place] [address] Referring Physician Thoracic Surgery 11/05/18 Zion Barton MD [address] [place] [address] Radiation Oncologist Radiation Oncology 05/05/19 Molina Charles MD 1 [facility] [address] [place] [address] Referring Physician Transplant Hepatology 12/15/20 Inés Lemus, TYRA [address] [facility] [address] [place] [address] Harness Placer 10/31/21 Karuna Maria, OT Occupational Therapist Occupational Therapy 09/20/22 Renu Treviño NP [address] [facility] [address] [place] [address] Nurse Practitioner Radiation Oncology 11/08/22 Eladio Mcrae MD [address] [place] [address] Referring Physician Obstetrics and Gynecology 11/15/22 Tamiko Schroeder RN [address] [place] [address] Harness Placer 04/27/24 Briana Poe RN [address] [facility] [address] [place] [address] SHOP Outpatient Milk Vendor 04/30/24 05/28/24 documented as of this encounter
--- OUTSIDE RECORDS SUMMARY | 2024-09-24 03:05 | XMS_ITS ---
Author Organization [facility] Address [address] [place] [address] Care Team Providers Care Rn Production Name Role Phone Maddy Romano MD Primary Care Provider + [phone] Manas Ibarra MD Unavailable Zion Barton MD Unavailable Molina Charles MD Unavailable [phone] Inés Lemus RN Unavailable [phone] Karuna Maria OT Unavailable Unavaila Renu Paul NP Unavailable [phone] Eladio Mcrae MD Unavailable [phone] Tamiko Schroeder RN Unavailable [phone] Transplant Episode Liver Candidate ([place], [place]) - [facility] Center waitlisted on 08/17/2022 Marked as Active on 05/07/2024 Reason: Listed in [facility] Liver CoordinatorInés Lemus RN Fax: N/A Email: N/A Scores Score Value Updated Expires Exceptions/Eden sons CPRA Not available UNOS MELD 21 08/30/2024 09/29/2024 MELD (Calc) 21 08/27/2024 Yuhaaviatam Organ Diagnosis Organ Primary Contributory Liver Cirrhosis: Metabolic Dysfunction -Associated Steatohepatitis (MASH) Care Team Name Role Phone Fax Email Inés Lemus, TYRA Liver Coordinator [phone] N/A N/A Charito Lambert, DEVONTE Dietitian N/A N/A N/A Anna Ngo, COMPLAINT ADJUSTER Complex Care Nurse N/A N/A N/A Molina Charles MD Referring Physician [phone] N/A Chelsea Barker, TYRA Secondary Coordinator N/A N/A N/A [place] Bear Human Performance Professor [phone] N/A N/A Faith Lopez Primary Fur Designer N/A N/A N/A Events Pre-Transplant Referred: 10/26/2021 Evaluation began: 11/02/2021 Committee: 08/07/2022 Center waitlisted: 08/17/2022 Appointments (08/24/2024 - 10/22/2024) When With Visit Type Description 08/24/2024 Transplant - Amanda Garner OUTPATIENT VISIT
--- OUTSIDE RECORDS SUMMARY | 2024-09-24 03:05 | XMS_ITS | Encounter Summary ---
Author Organization [facility] Address [address] [place] [address] Phone Care Team Providers Care Ssn/Ssbn Weapons Equipment Operator Name Role Phone Maddy Romano MD Primary Care Provider [phone] Astrid Haq NP Unavailable Manas Ibarra MD Unavailable Zion Barton MD Unavailable Molina Charles MD Unavailable [phone] Inés Lemus RN Unavailable [phone] Karuna Maria OT Unavailable Unavaila Renu Paul NP Unavailable [phone] Eladio Mcrae MD Unavailable Tamiko Schroeder RN Unavailable [phone] Briana Poe RN Unavailable [phone] Encounter Details Date Type Department Care Team (Late st Contact Info) Description 08/11/2021 Orders Only [facility] Scanning, Provider Social History Tobacco Use Types Packs/Day Years Used Date Smoking Tobacco: Former Cigarettes Q uit: 2010 Smokeless Tobacco: Never Comments No Sex and Gender Information Value Date Recorded Sex Assigned at Not on file Legal Sex Female 8:22 AM INCIDENT ANALYST Gender Identity Female 11/15/2021 2:30 AM [...] documented as of this encounter Care Teams Ssn/Ssbn Weapons Equipment Operator Relationship Specialty Start Date End Date Maddy Romano MD [address] [place] [address] PCP - General 09/28/16 Astrid Haq NP [address] [place] [address] Nurse Practitioner Radiation Oncology 11/05/18 11/07/22 Manas Ibarra MD [address] [place] [address] Referring Physician Thoracic Surgery 11/05/18 Zion Barton MD [address] [place] [address] Radiation Oncologist Radiation Oncology 05/05/19 Molina Charles MD 1 [facility] [address] [place] [address] Referring Physician Transplant Hepatology 12/15/20 Inés Lemus RN [address] [facility] [address] [place] [address] Tile Inspector 10/31/21 Karuna Maria OT Occupational Therapist Occupational Therapy 09/20/22 Renu Treviño NP [address] [facility] [address] [place] [address] Nurse Practitioner Radiation Oncology 11/08/22 Eladio Mcrae MD [address] [place], [place] [address] Referring Physician Obstetrics and Gynecology 11/15/22 Tamiko Schroeder RN [address] [place] [address] Tile Inspector 04/27/24 Briana Poe RN [address] [facility] [address] [place] [address] SHOP Outpatient Hot Tar Roofer Helper 04/30/24 05/28/24 documented as of this encounter
--- OUTSIDE RECORDS SUMMARY | 2024-09-24 03:05 | XMS_ITS | Encounter Summary ---
Author Organization [facility] Address [address] [place] [address] Phone Care Team Providers Care Composition Mixer Name Role Phone Maddy Romano MD Primary Care Provider Astrid Haq NP Unavailable Manas Ibarra MD Unavailable Zion Barton MD Unavailable Molina Charles MD Unavailable [phone] Inés Lemus RN Unavailable [phone] Karuna Maria OT Unavailable Unavaila Renu Paul NP Unavailable Eladio Mcrae MD Unavailable Tamiko Schroeder RN Unavailable [phone] Briana Poe RN Unavailable Encounter Details Date Type Department Care Team (Late st Contact Info) Description 06/16/2021 Orders Only [facility] Scanning, Provider Social History Tobacco Use Types Packs/Day Years Used Date Smoking Tobacco: Former Cigarettes Q uit: 2010 Smokeless Tobacco: Never Comments No Sex and Gender Information Value Date Recorded Sex Assigned at Not on file Legal Sex Female 8:22 AM EMERY WHEEL WORKER Gender Identity Female 11/15/2021 2:30 AM CDT [...] documented as of this encounter Care Teams Composition Mixer Relationship Specialty Start Date End Date Maddy Romano MD [address] [place] [address] PCP - General 09/28/16 Astrid Haq NP [address] [place] [address] Nurse Practitioner Radiation Oncology 11/05/18 11/07/22 Manas Ibarra MD [address] [place] [address] Referring Physician Thoracic Surgery 11/05/18 Zion Barton MD [address] [place] [address] Radiation Oncologist Radiation Oncology 05/05/19 Molina Charles MD 1 [facility] [address] [place] [address] Referring Physician Transplant Hepatology 12/15/20 Inés Lemus RN [address] [facility] [address] [place] [address] Catering Cook 10/31/21 Karuna Maria OT Occupational Therapist Occupational Therapy 09/20/22 Renu Treviño NP [address] [facility] [address] [place] [address] Nurse Practitioner Radiation Oncology 11/08/22 Eladio Mcrae MD [address] [place], [place] [address] Referring Physician Obstetrics and Gynecology 11/15/22 Tamiko Schroeder RN [address] [place] [address] Catering Cook 04/27/24 Briana Poe RN [address] [facility] [address] [place] [address] SHOP Outpatient Nanosystems Engineer 04/30/24 05/28/24 documented as of this encounter
--- OUTSIDE RECORDS SUMMARY | 2024-09-24 03:05 | XMS_ITS | Encounter Summary ---
Author Organization [facility] Address [address] [place] [address] Care Team Providers Care Electric Meter Installer Name Role Phone Maddy Romano MD Primary Care Provider Astrid Haq NP Unavailable Manas Ibarra MD Unavailable Zion Barton MD Unavailable Molina Charles MD Unavailable [phone] Inés Lemus RN Unavailable [phone] Karuna Maria OT Unavailable Unavaila Renu Paul NP Unavailable [phone] Eladio Mcrae MD Unavailable [phone] Tamiko Schroeder RN Unavailable [phone] Briana Poe RN Unavailable [phone] Reason for Visit * Reason Onset Date Comments Ready to schedule 04/25/2022 Encounter Details Date Type Department Care Team (Late st Contact Info) Description 04/25/2022 Telephone [facility] Specialty Services [address] [place] [address] Miscellaneous, Not In File Ready to schedule [...] on file Legal Sex Female 8:22 AM MOBILE DEVELOPER Gender Identity Female 11/15/2021 2:30 AM CDT [...] documented as of this encounter Care Teams Electric Meter Installer Relationship Specialty Start Date End Date Maddy Romano MD [address] [place] [address] PCP - General 09/28/16 Astrid Haq NP [address] [place] [address] Nurse Practitioner Radiation Oncology 11/05/18 11/07/22 Manas Ibarra MD [address] [place] [address] Referring Physician Thoracic Surgery 11/05/18 Zion Barton MD [address] [place] [address] Radiation Oncologist Radiation Oncology 05/05/19 Molina Charles MD 1 [facility] [address] [place] [address] Referring Physician Transplant Hepatology 12/15/20 Inés Lemus RN [address] [facility] [address] [place] [address] Wall Washer 10/31/21 Karuna Maria, OT Occupational Therapist Occupational Therapy 09/20/22 Renu Treviño NP [address] [facility] [address] [place] [address] Nurse Practitioner Radiation Oncology 11/08/22 Eladio Mcrae MD [address] [place] [address] Referring Physician Obstetrics and Gynecology 11/15/22 Tamiko Schroeder RN [address] [place] [address] Wall Washer 04/27/24 Briana Poe RN [address] [facility] [address] [place] [address] SHOP Outpatient Head Of Art 04/30/24 05/28/24 documented as of this encounter
--- OUTSIDE RECORDS SUMMARY | 2024-09-24 03:05 | XMS_ITS | Encounter Summary ---
Author Organization [facility] Address [address] [place] [address] Phone Care Team Providers Care Estate Attorney Name Role Phone Maddy Romano MD Primary Care Provider Astrid Haq NP Unavailable Manas Ibarra MD Unavailable Zion Barton MD Unavailable [phone] Molina Charles MD Unavailable [phone] Inés Lemus RN Unavailable [phone] Karuna Maria OT Unavailable Unavaila Renu Paul NP Unavailable Eladio Mcrae MD Unavailable [phone] Tamiko Schroeder RN Unavailable [phone] Briana Poe RN Unavailable Encounter Details Date Type Department Care Team (Late st Contact Info) Description 04/13/2020 Orders Only [facility] Scanning, Provider Social History Tobacco Use Types Packs/Day Years Used Date Smoking Tobacco: Former Cigarettes Q uit: 2010 Smokeless Tobacco: Never Comments No Sex and Gender Information Value Date Recorded Sex Assigned at Not on file Legal Sex Female 8:22 AM LAN ENGINEER Gender Identity Female 11/15/2021 2:30 AM CDT [...] documented as of this encounter Care Teams Estate Attorney Relationship Specialty Start Date End Date Maddy Romano MD [address] [place] [address] PCP - General 09/28/16 Astrid Haq NP [address] [place] [address] Nurse Practitioner Radiation Oncology 11/05/18 11/07/22 Manas Ibarra MD [address] [place] [address] Referring Physician Thoracic Surgery 11/05/18 Zion Barton MD [address] [place] [address] Radiation Oncologist Radiation Oncology 05/05/19 Molina Charles MD [address] [place] [address] [address] [place] [address] Referring Physician Transplant Hepatology 12/15/20 Inés Lemus RN [address] [facility] [address] [place] [address] Ordnance Truck Installation Supervisor 10/31/21 Karuna Maria, OT Occupational Therapist Occupational Therapy 09/20/22 Renu Treviño NP [address] [facility] [address] [place] [address] Nurse Practitioner Radiation Oncology 11/08/22 Eladio Mcrae MD [address] [place] [address] Referring Physician Obstetrics and Gynecology 11/15/22 Tamiko Schroeder RN [address] [place] [address] Ordnance Truck Installation Supervisor 04/27/24 Briana Poe RN [address] [facility] [address] [place] [address] SHOP Outpatient Assistant Center Manager 04/30/24 05/28/24 documented as of this encounter
--- OUTSIDE RECORDS SUMMARY | 2024-09-24 03:05 | XMS_ITS | Encounter Summary ---
Author Organization [facility] Address [address] [place] [address] Phone Care Team Providers Care Showroom Manager Name Role Phone Maddy Romano MD Primary Care Provider Astrid Haq NP Unavailable Manas Ibarra MD Unavailable Zion Barton MD Unavailable [phone] Molina Charles MD Unavailable [phone] Inés Lemus RN Unavailable [phone] Karuna Maria OT Unavailable Unavaila Renu Paul NP Unavailable Eladio Mcrae MD Unavailable [phone] Tamiko Schroeder RN Unavailable [phone] Briana Poe RN Unavailable [phone] Encounter Details Date Type Department Care Team (Late st Contact Info) Description 12/25/2019 Orders Only [facility] Scanning, Provider Social History Tobacco Use Types Packs/Day Years Used Date Smoking Tobacco: Former Cigarettes Q uit: 2010 Smokeless Tobacco: Never Comments No Sex and Gender Information Value Date Recorded Sex Assigned at Not on file Legal Sex Female 8:22 AM ELECTRIC POWERLINE EXAMINER Gender Identity Female 11/15/2021 2:30 AM CDT [...] documented as of this encounter Care Teams Showroom Manager Relationship Specialty Start Date End Date Maddy Romano MD [address] [place] [address] PCP - General 09/28/16 Astrid Haq NP [address] [place] [address] Nurse Practitioner Radiation Oncology 11/05/18 11/07/22 Manas Ibarra MD [address] [place] [address] Referring Physician Thoracic Surgery 11/05/18 Zion Barton MD [address] [place] [address] Radiation Oncologist Radiation Oncology 05/05/19 Molina Charles MD [address] [place] [address] [address] [place] [address] Referring Physician Transplant Hepatology 12/15/20 Inés Lemus, RN [address] [facility] [address] [place] [address] Branch Service Leader 10/31/21 Karuna Maria OT Occupational Therapist Occupational Therapy 09/20/22 Renu Treviño NP [address] [facility] [address] [place] [address] Nurse Practitioner Radiation Oncology 11/08/22 Eladio Mcrae MD [address] [place] [address] Referring Physician Obstetrics and Gynecology 11/15/22 Tamiko Schroeder RN [address] [place] [address] Branch Service Leader 04/27/24 Briana Poe, RN [address] [place] [id number] [facility] Outpatient Tractor Driver Teamster 04/30/24 05/28/24 documented as of this encounter
--- OUTSIDE RECORDS SUMMARY | 2024-09-24 03:05 | XMS_ITS | Clinical Summary ---
Author Organization [facility] Address [address] [place] [address] Care Team Providers Care Fruit Dumper Name Role Phone Maddy Romano MD Primary Care Provider [phone] Manas Ibarra MD Unavailable Zion Barton MD Unavailable Moilna Charles MD Unavailable [phone] Inés Lemus RN Unavailable [phone] Karuna Maria OT Unavailable Unavaila Renu Paul NP Unavailable [phone] Eladio Mcrae MD Unavailable [phone] Tamiko Schroeder RN Unavailable [phone] Allergies Active Allergy Reactions Criticality Noted [...] (three) times a day 2700 mL 3 024 Active zinc sulfate (ZINCATE) 50 mg zinc [...] stage 3a chronic kidney disease, unspecified whether chcf insulin use (HCC) Will use 1 sensor every 10 days. 1 box = 3 sensors. 3 each 5 Active blood-glucose transmitter (Dexcom G6 Transmitter) deviceIndications :Type 2 diabetes mellitus without complication, unspecified whether chcf insulin use (HCC) Will use 1 transmitter every 90 days 1 each 1 Active spironolactone (ALDACTONE) 100 mg tablet Take 3 tablets (300 mg total) by mouth daily 90 tablet 11 025 2025 Active pen needle, diabetic (BD Ultra-Fine Mini Pen Needle) 31 gauge x 3/16 needleIndications :Type 2 diabetes mellitus without complication, unspecified whether chcf insulin use (HCC) USE TO INJECT INSULIN SIX TIMES PER DAY 200 each 11 025 Active pen needle, diabetic 31 gauge x 3/16 needleIndications :Type 2 diabetes mellitus without complication, unspecified whether chcf insulin use (HCC) Use to inject insulin [...] as outlined elsewhere. 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 Patient asymptomatic, normotensive. IV metoprolol X2 given to achieve rate control. [id number] vasc score of 3. TTE from 09/03 without valvular abnormalities. No new episodes today. Lytes within normal limits. - Continue gambling monitor - Continue home dose of metoprolol 25mg BID - Given that patient might be listed for transplant, hepatology would prefer to avoid apixaban. Lovenox is not ideal given her platelet count less than 100. Her INR is too high to consider warfarin. Anemia 10/05/2022 Assessment & Plan (10/11/2022 12:28 PM LEARNING MANAGER): - Hgb has down trended from 8 [...] 10/05/2022 Assessment & Plan (10/11/2022 12:45 PM LEARNING MANAGER): -Continue home dose of metoprolol 25mg BID Hepatic encephalopathy 07/31/2022 Assessment & Plan (03/06/2023 5:49 PM CDT): Good control on current medical management. No changes indicated. Assessment & Plan (08/03/2022 1:05 PM LEARNING MANAGER): Pt with hx of VELASCO cirrhosis presenting with progressively worsening mental status over past several weeks. On initial examination patient was AAOx1, on subsequent exam she is now AAOx2 with appropriate responses. NH3 75. Unfortunately no safe area for bedside diagnostic paracentesis. Slurred speech and concerns for swallowing. CARE TRANSITION COORDINATOR completed swallow study and normal. Head CT: No acute intracranial abnormality. -Awaiting Liver MRI -Increased Lactulose to 4x daily (only 1 stool on 08/02) - Rifaximin and Lactulose (goal 3-5 bowel movements) - Fall precautions. - PT/OT: Home with assistance. Assessment & Plan (08/02/2022 2:34 PM LEARNING MANAGER): Pt with hx of VELASCO cirrhosis presenting with progressively worsening mental status over past several weeks. On initial examination patient was AAOx1, on subsequent exam she is now AAOx2 with appropriate responses. NH3 75. Unfortunately no safe area for bedside diagnostic paracentesis. Slurred speech and concerns for swallowing. CARE TRANSITION COORDINATOR completed swallow study and normal. Head CT: No acute intracranial abnormality. - Rifaximin and Lactulose (goal 3-5 bowel movements) - Fall precautions. - PT/OT: Home with assistance. - CARE TRANSITION COORDINATOR completed bedside swallow and Normal Assessment & Plan (08/01/2022 3:28 PM LEARNING MANAGER): Pt with hx of VELASCO cirrhosis presenting with progressively worsening mental status [...] concerns for swallowing. - Fall precautions. - CARE TRANSITION COORDINATOR/PT/OT Consults. Assessment & Plan (08/01/2022 4:16 AM LEARNING MANAGER): Pt with hx of VELASCO cirrhosis presenting with progressively worsening mental status [...] (10/22/2022): Added automatically from request for surgery [id number] Volume overload 10/06/2022 05/29/2024 Assessment & Plan (10/10/2022 1:09 PM LEARNING MANAGER): In the setting of VELASCO cirrhosis. Diuretics had been getting uptitrated over [...] (08/22/2022): Added automatically from request for surgery [id number] Portal vein thrombosis 08/01/202208/22 Assessment & Plan (08/03/2022 1:09 PM LEARNING MANAGER): -Apixaban 2.5mg BID Assessment & Plan (08/02/2022 2:39 PM LEARNING MANAGER): -Apixaban 2.5mg BID Assessment & Plan (08/01/2022 3:27 PM LEARNING MANAGER): -Apixaban 2.5mg BID Assessment & Plan (08/01/2022 4:17 AM LEARNING MANAGER): Continue home apixaban VELASCO (nonalcoholic steatohepatitis) 11/02/2021 07/15/2024 Abnormal mammogram of right breast 11/02/2020 08/22/2022 Preop cardiovascular exam 09/23/2019 Overview (09/23/2019): Added automatically from request for surgery [id number] Colon cancer screening 04/21/201908/22 Overview (04/21/2019): Added automatically from request for surgery [id number] Esophageal varices without bleeding (CMS/HCC) 04/21/20 19 08/22/2022 Overview (04/21/2019): Added automatically from request for surgery [id number] Steatosis of liver 05/20/2017 intermediate card tender current use of ant icoagulant therapy 07/26/2016 [...] 05/29/2024 Assessment & Plan (10/12/2022 2:58 PM LEARNING MANAGER): Previously on dose reduced insulin regimen at OSH 20u lantus, 7u tid lispro + ssi. - Her blood sugars were initially on the lower side (90-100) in setting of poor po intake and TR. Continue SSI only for now and will uptitrate as needed. - Continue Lantus 10u/daily + lispro 4TID Assessment & Plan (08/03/2022 1:09 PM LEARNING MANAGER): Home regimen of toujeo 42 units + SSI. -Lantus, Lispro TID AC and SSI -No Juice Diet -Consistent Carb+ 2gm NA diet. -CTM BGL Assessment & Plan (08/02/2022 2:38 PM LEARNING MANAGER): Home regimen of toujeo 42 units + SSI. -Lantus, Lispro TID AC and SSI -No Juice Diet -Consistent Carb+ 2gm NA diet. -CTM BGL Assessment & Plan (08/01/2022 3:26 PM LEARNING MANAGER): Home regimen of toujeo 42 units + SSI. Given TR and decreased PO intake, insulin regimen reduced to Lantus 20units. - Continue on 2g Na + DM2 diet - CTM BGL Assessment & Plan (08/01/2022 4:17 AM LEARNING MANAGER): Home regimen of toujeo 42 units + SSI Given TR and decreased PO intake, will dose reduce insulin regimen, 20units + SSIand uptitrate as needed Continue on 2g Na + DM2 diet Encounters Date Type Department Care Team Description 09/15/2024 Documentation [facility] Gastroenterology [address] [facility] [address]th [place] [address] [place] [address] Alexandra Issa RN 09/14/2024 Telephone [facility] [address] Mailstop [phone] [place] [address] Inés Lemus, RN 09/07/2024 Orders Only [facility] Scanning, Provider 08/30/2024 Telephone [facility] [address] Mailstop [phone] [place] [address] Inés Lemus, RN 08/28/2024 Documentation [facility] Gastroenterology [address] [facility] Advanced [facility] 12th [place] [address] [place] [address] Alexandra Issa, TYRA 08/27/2024 1:40 PM LEARNING MANAGER Lab [facility] [address] [place] [address] VELASCO (nonalcoholic steatohepatitis) 08/25/2024 Documentation [facility] Gastroenterology [facility] 12th [place] [address] [place] [address] Alexandra Issa RN 08/25/2024 Telephone [facility] [address] Mailstop [phone] [place] [address] Inés Lemus, TYRA 08/25/2024 Documentation [facility] Gastroenterology [address] [facility] Advanced [facility] 12th [place] [address] [place] [address] Alexandra Issa, TYRA 08/24/2024 10:00 AM LEARNING MANAGER - 08/24/2024 11:59 PM LEARNING MANAGER Hospital Encounter [address] [address] ESRD (end stage renal disease) (CMS/HCC) (HCC) Discharge Disposition: Discharge to home or self care 08/24/2024 9:00 AM LEARNING MANAGER Social Work [facility] [place] [address] [facility] Advance Medicine, 8th Floor, [place] [address] Ragini Garner LCSW 08/24/2024 Orders Only [facility] Scanning, Provider 08/17/2024 Telephone [facility] Transplant Liver [address] Mailstop [phone] [place] [address] Inés Lemus, TYRA 08/07/2024 Telephone [facility] [address] [facility] [address] Mailstop [phone] [place] [address] Inés Lemus, TYRA 08/06/2024 4:35 PM LEARNING MANAGER Lab [facility] [address] [place] [address] Hepatic encephalopathy (HCC); Type 2 diabetes mellitus with stage 4 chronic kidney disease, with long-term current use of insulin (HCC); Hepatic cirrhosis, unspecified hepatic cirrhosis type, unspecified whether ascites present (HCC); Dysuria 08/06/2024 3:45 PM LEARNING MANAGER Office Visit [facility] Gastroenterology [address] [place] [address] Medical Office [address], [address] [place] [address] Taiwo Vázquez MD Hepatic cirrhosis, unspecified hepatic cirrhosis type, unspecified whether ascites present (HCC) (Primary Dx); Hepatic encephalopathy (HCC); Type 2 diabetes mellitus with stage 4 chronic kidney disease, with long-term current use of insulin (HCC); Class 3 severe obesity due to excess calories with serious comorbidity and body mass index (BMI) of 40.0 to 44.9 in adult (HCC); 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 12th [place] [address] [place] [address] Alexandra Issa RN 07/31/2024 Documentation [facility] [address] Mailstop [phone] [place], [place] [id number] Chelsea Barker RN 07/31/2024 Orders Only [facility] Gastroenterology [address] [facility] Advanced Medicine 12th [place] [address] [place] [address] Alexandra Issa, TYRA 07/30/2024 3:45 PM LEARNING MANAGER Lab [facility] [address] [place] [address] ESRD (end stage renal disease) (CMS/HCC) (HCC); VELASCO (nonalcoholic steatohepatitis) 07/24/2024 Telephone [facility] Transplant Liver [address] [facility] [address] Mailstop [phone] [place] [address] Inés Lemus, TYRA 07/24/2024 Telephone [facility] Trans[facility] Liver [address] [facility] [address] Mailstop [phone] [place] [address] Inés Lemus, TYRA 07/22/2024 Documentation [facility] Gastroenterology [address] [place] [address] [place] [address] [place] [address] Alexandra Issa RN 07/20/2024 10:00 AM LEARNING MANAGER - 07/20/2024 11:59 PM [facility] Hospital [address] [address] ESRD (end stage renal disease) (CMS/HCC) (HCC) Discharge Disposition: Discharge to home or self care 07/20/2024 Orders Only [facility] GASTR[facility] Scanning, Provider 07/17/2024 Telephone [facility] Specialty Services [address] [place] [address] Mayra Machuca RN 07/17/2024 Telephone [facility] Transplant Liver [address] [facility] [address] Mailstop [phone] [place] [address] Inés Lemus, TYRA 07/15/2024 10:30 AM LEARNING MANAGER Office Visit [facility] Gasteroenterology [facility] 12th [place] [address] [place] [address] Britany Toribio MD Cirrhosis of liver without ascites, unspecified hepatic cirrhosis type (HCC) (Primary Dx) 07/08/2024 Documentation [facility] Gastroenterology [address] [facility] Advanced [facility] 12th [place] [address] [place] [address] Alexandra Issa RN 07/03/2024 Telephone [facility] Liver [address] Mailstop [phone] [place] [address] Inés Lemus RN 07/02/2024 Documentation [facility] Gastroenterology [address] [place] [address] 12th [place] [address] [place] [address] Alexandra Issa RN 06/30/2024 2:20 PM LEARNING MANAGER Lab [facility] [address] [place] [phone] VELASCO (nonalcoholic steatohepatitis) 06/30/2024 11:10 AM LEARNING MANAGER Office Visit [facility] Nephrology [address] [place] [address] 5th [place] [address] [place] [address] Stage 3b chronic kidney disease (HCC) (Primary Dx); Hypertension, unspecified type; Anemia in stage 3b chronic kidney disease (HCC) from Last 3 Months Immunizations Name Administration Dates Next Due Hep B Vaccine 01/22/2024,12/18/2023 Influenza, Quadrivalent, Spl it, Intramuscular 05/01/2019,05/26/2015 Influenza, Quadrivalent, Spl it, Preservative Free, Intramuscular 07/02/2023,04/29/2020,05/01/2019,05/09,05/08/2018,05/23/2017,05/17/2016 Influenza, Trivalent, IM (MDV) 04/28/2021,2013 Influenza, Trivalent, Preser vative Free, Intramuscular 05/29/2013 Instantis (J&J) SARS-CoV-2 Vaccination 10/17/2020 Pneumococcal Conjugate PCV [...] CT/PET, radiation oncology 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 Never 08/24/2024 Do you belong to any clubs o r organizations such as presybeterian groups, unions, fraternal or athletic groups, or [...] place to sleep or slept in a alf (including now)? No 12/31/2022 Housing Stability Vital Sign Answer Terrance e Recorded In the last 12 months, was t here a time when you were not able to pay the mortgage or rent on time? No 08/24/2024 In the past 12 months, how m any times have you moved where you were living? 0 08/24/2024 At any time in the past 12 m [facility], were you homeless or living in a alf (including now)? No 08/24/2024 Personal Safety Answer Date Recorded Have you ever been in or are you currently in a harmful physical or emotional relationship or is someone making you feel afraid or unsafe? 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 file Obstetrics History Last Filed Vital Signs Vital Sign Reading Time Taken Comments Blood Pressure 122/66 08/06/2024 3:48 PM LEARNING MANAGER Pulse 59 08/06/2024 3:48 PM LEARNING MANAGER Temperature 36.5 C (97.7 F) 08/06/2024 3:48 PM LEARNING MANAGER Respiratory Rate 18 08/06/2024 3:48 PM LEARNING MANAGER Oxygen Saturation 100% 08/06/2024 3:48 PM LEARNING MANAGER Inhaled Oxygen Concentration - - Weight 117 kg (258 lb) 08/06/2024 3:48 PM LEARNING MANAGER Height 170.2 cm (5' 7.01 ) 08/06/2024 3:48 PM CS T Body Mass Index 40.4 08/06/2024 3:48 PM LEARNING MANAGER Plan of Treatment Scheduled Procedures Name Priority Associated Diagnoses Date/Ti me COLONOSCOPY Routine adult health maintenance VELASCO (nonalcoholic steatohepatitis) Health Maintenance Due Date Last [...] LABS 09/07/2024 EGFR Routine 08/27/2024 1:35 PM LEARNING MANAGER VELASCO (nonalcoholic steatohepatitis) COMPREHENSIVE METABOLIC PANEL Routine 08/27/2024 1:35 PM LEARNING MANAGER VELASCO (nonalcoholic steatohepatitis) PROTIME-INR Routine 08/27/2024 1:35 PM LEARNING MANAGER VELASCO (nonalcoholic steatohepatitis) HLA ANTIBODY SCREEN BY PRA OR SAB PER SCHEDULE (CLASS I AND CLASS II) Routine 08/24/2024 10:00 AM LEARNING MANAGER ESRD (end stage renal disease) (CMS/HCC) (HCC) SCAN - LABS 08/24/2024 URINALYSIS, MICROSCOPIC ONLY Routine 08/06/2024 5:12 PM LEARNING MANAGER Dysuria URINALYSIS AND REFLEX TO MICROSCOPIC AND CULTURE Routine 08/06/2024 5:12 PM LEARNING MANAGER Dysuria EGFR Routine 08/06/2024 5:04 PM LEARNING MANAGER Hepatic cirrhosis, unspecified hepatic cirrhosis type, unspecified whether ascites present (HCC) Hepatic encephalopathy (HCC) DIFFERENTIAL AUTO Routine 08/06/2024 5:0 4 PM LEARNING MANAGER Hepatic cirrhosis, unspecified hepatic cirrhosis type, unspecified whether ascites present (HCC) Hepatic encephalopathy (HCC) CBC WITH AUTO DIFFERENTIAL Routine 08/06/2024 5:04 PM LEARNING MANAGER Hepatic cirrhosis, unspecified hepatic cirrhosis type, unspecified whether ascites present (HCC) Hepatic encephalopathy (HCC) COMPREHENSIVE METABOLIC PANEL Routine 08/06/2024 5:04 PM LEARNING MANAGER Hepatic cirrhosis, unspecified hepatic cirrhosis type, unspecified whether ascites present (HCC) Hepatic encephalopathy (HCC) BILIRUBIN, DIRECT Routine 08/06/2024 5:0 4 PM LEARNING MANAGER Hepatic cirrhosis, unspecified hepatic cirrhosis type, unspecified whether ascites present (HCC) Hepatic encephalopathy (HCC) PROTIME-INR Routine 08/06/2024 5:04 PM LEARNING MANAGER Hepatic cirrhosis, unspecified hepatic cirrhosis type, unspecified whether ascites present (HCC) Hepatic encephalopathy (HCC) [id number], TUMOR MARKER Routine 08/06/2024 5:04 PM LEARNING MANAGER Hepatic cirrhosis, unspecified hepatic cirrhosis type, unspecified whether ascites present (HCC) Hepatic encephalopathy (HCC) HEMOGLOBIN A1C Routine 08/06/2024 5:04 PM LEARNING MANAGER Hepatic encephalopathy (HCC) Type 2 diabetes mellitus with stage 4 chronic kidney disease, with long-term current use of insulin (HCC) BLOOD CULTURE Routine 08/06/2024 5:04 PM LEARNING MANAGER Hepatic encephalopathy (HCC) SCAN - LABS 08/03/2024 EGFR Routine 07/30/2024 1:25 PM LEARNING MANAGER VELASCO (nonalcoholic steatohepatitis) COMPREHENSIVE METABOLIC PANEL Routine 07/30/2024 1:25 PM LEARNING MANAGER VELASCO (nonalcoholic steatohepatitis) DIFFERENTIAL AUTO Routine 07/30/2024 1:1 0 PM LEARNING MANAGER VELASCO (nonalcoholic steatohepatitis) CBC WITH AUTO DIFFERENTIAL Routine 07/30/2024 1:10 PM LEARNING MANAGER VELASCO (nonalcoholic steatohepatitis) PROTIME-INR Routine 07/30/2024 1:10 PM LEARNING MANAGER VELASCO (nonalcoholic steatohepatitis) HLA ANTIBODY SCREEN - SAB (CLASS I AND CLASS II) Routine 07/20/2024 10:00 AM LEARNING MANAGER ESRD (end stage renal disease) (CMS/HCC) (HCC) HLA ANTIBODY SCREEN BY PRA OR SAB PER SCHEDULE (CLASS I AND CLASS II) Routine 07/20/2024 10:00 AM LEARNING MANAGER ESRD (end stage renal disease) (CMS/HCC) (HCC) SCAN - LABS 07/20/2024 EGFR Routine 06/30/2024 12:36 PM LEARNING MANAGER VELASCO (nonalcoholic steatohepatitis) DIFFERENTIAL AUTO Routine 06/30/2024 12: 36 PM LEARNING MANAGER VELASCO (nonalcoholic steatohepatitis) CBC WITH AUTO DIFFERENTIAL Routine 06/30/2024 12:36 PM LEARNING MANAGER VELASCO (nonalcoholic steatohepatitis) PROTIME-INR Routine 06/30/2024 12:36 PM LEARNING MANAGER VELASCO (nonalcoholic steatohepatitis) COMPREHENSIVE METABOLIC PANEL Routine 06/30/2024 12:36 PM LEARNING MANAGER VELASCO (nonalcoholic steatohepatitis) PAP AND HIGH RISK HPV, REFLEX TO GENOTYPING Routine 04/28/2024 10:41 AM CDT SCREENING MAMMOGRAM BILATERAL W PAL IP Routine 04/27/2024 1:55 PM CDT LIPID PANEL Routine 04/22/2024 12:58 AM CDT HEPATITIS C ANTIBODY Routine 06/16/2023 6:09 AM LEARNING MANAGER COLONOSCOPY 05/30/2022 9:28 AM CDT ALBUMIN CREATININE RATIO, URINE Routine 03/01/2021 2:45 PM CDT Type 2 diabetes mellitus without complication, unspecified whether moth exterminator insulin use (HCC) from Last 3 Months or Most Recently Relevant to Health Maintenance Results * SCAN - LABS (09/07/2024) us Provider Scanning Final Result * (ABNORMAL) eGFR (08/27/2024 1:35 PM LEARNING MANAGER) eGFR 31(L) >=60 mL/min/1. 73 m2 Comment: [...] of Race in Diagnosing Kidney Disease, JASN 202). The CKD-EPI equation should not be used for patients with unstable renal function and has not been validated in children and those over 70. Current interpretive data was last reviewed 2021. Blood 08/27/2024 1:35 PM LEARNING MANAGER 08/27/2024 1:59 PM LEARNING MANAGER Taiwo Vázquez MD LAB BLOOD ORDERABLES Fin al Result Performing Organization Address [facility] Co de Phone Number [facility] [employer] [place], [place] [id number] * (ABNORMAL) Protime-INR (08/27/2024 1:35 PM LEARNING MANAGER) PT 14.1(H) 9.7 - 13.0 sec INR 1.30(H) 0.90 - 1.20 [facility] Comment: Interpretive data Oral anticoagulant therapeutic ranges: Venous thromboembolism prophylaxis or treatment: 2.0-3.0 CARDIOLOGY Standard range: 2.0-3.0 High-intensity range: 2.5-3.5 Refer to indication-specific guidelines for appropriate target ranges for prosthetic heart valve replacement. Current interpretive data was last revised on 2019. Blood 08/27/2024 1:35 PM LEARNING MANAGER 08/27/2024 1:48 PM LEARNING MANAGER Taiwo Vázquez MD LAB BLOOD ORDERABLES Fin al Result Performing Organization Address [facility] Co de Phone Number [facility] [place] [employer] [address] * (ABNORMAL) Comprehensive metabolic panel (08/27/2024 1:35 PM LEARNING MANAGER) Sodium 136 135 - 145 mmol/L Potassium, pl 3.6 3.3 - 4.9 mmol/L [facility] Chloride 101 97 - 110 mmol/L [facility] CO2 28 22 - 32 mmol/L [facility] Anion gap 7 2 - 15 mmol/L [facility] BUN 29(H) 6 - 25 mg/dL [facility] Creatinine 1.81(H) 0.60 - 1.10 mg/dL [facility] Glucose 293(H) 70 - 199 mg/dL [facility] Comment: Interpretive Data Fasting glucose [...] 2022. Calcium 8.9 8.5 - 10.3 mg/dL [facility] Bilirubin, total 2.4(H) 0.1 - 1.2 mg/dL [facility] Protein, pl 6.1(L) 6.5 - 8.5 g/dL [facility] Albumin 3.0(L) 3.5 - 5.0 g/dL [facility] Alk phos 100 40 - 130 Units/L [facility] ALT 21 7 - 45 Units/L [facility] AST 31 10 - 45 Units/L [facility] Blood 08/27/2024 1:35 PM LEARNING MANAGER 08/27/2024 1:48 PM LEARNING MANAGER us Taiwo Vázquez MD LAB BLOOD ORDERABLES Fin al Result [facility] Department of Laboratories [place], [place] [phone] * HLA Antibody Screen by PRA or SAB per Schedule (Class I and Class II) (08/24/2024 10:00 AM LEARNING MANAGER) Blood 08/24/2024 10:0 0 AM LEARNING MANAGER Narrative HISTOTRAC - LEARNING MANAGER Sample received in lab and stored. No testing performed at this time. Timothy Pardo MD LAB BLOOD ORDERABL ES Final Result [facility] * SCAN - LABS (08/24/2024) us Provider Scanning Final Result * (ABNORMAL) Urinalysis reflex to microscopic and culture Urine (08/06/2024 5:12 PM LEARNING MANAGER) Color, ur Straw Yellow Clarity, ur Clear [...] tendency for uric acid stone formation. Source: [facility] [place] Current Interpretive Data was last revised on [...] to microscopic UA will be performed. [facility] Urine 08/06/2024 5:12 PM LEARNING MANAGER 08/06/2024 5:24 PM LEARNING MANAGER Taiwo Vázquez MD LAB MICROBIOLOGY - GENER AL ORDERABLES Final Result [facility] [id number] [facility]. [place] [address] * (ABNORMAL) Urinalysis, microscopic only (08/06/2024 5:12 PM LEARNING MANAGER) WBC, ur 6-10(A) 0 - 5 /HPF RBC, ur 3-5(A) 0 - 2 /HPF [facility] Epithelial cells, squamous, ur 1-5 0 - 5 /HPF [facility] Mucous, ur Present(A) [facility] Hyaline casts, ur 11-20(A) 0 - 10 /LPF [facility] Culture Reflex Comment Reflex conditions for urine culture (WBC >10) not met. [facility] Urine 08/06/2024 5:12 PM LEARNING MANAGER 08/06/2024 5:24 PM LEARNING MANAGER Taiwo Vázquez MD LAB URINE ORDERABLES Fin al Result [facility] [id number] [facility] [facility] [place] [address] * (ABNORMAL) eGFR (08/06/2024 5:04 PM LEARNING MANAGER) eGFR 34(L) >=60 mL/min/1. 73 m2 Comment: [...] last reviewed 2021. Blood 08/06/2024 5:04 PM LEARNING MANAGER 08/06/2024 5:24 PM LEARNING MANAGER us Taiwo Vázquez MD LAB BLOOD ORDERABLES Fin al Result CHARISSA ELIAS [id number] [address] [place] [address] * (ABNORMAL) Differential, auto (08/06/2024 5:04 PM LEARNING MANAGER) Neutrophil abs 2.8 1.5 - 6.5 K/cumm Imm gran abs 0.0 0.0 - 0.1 K/cumm [facility] Lymphocyte abs 1.3 0.8 - 3.3 K/cumm [facility] Monocyte abs 0.5 0.2 - 0.8 K/cumm [facility] Eosinophil abs 0.9(H) 0.0 - 0.5 K/cumm [facility] Basophil abs 0.0 0.0 - 0.1 K/cumm [facility] Neutrophil pct 50.9 % CHARISSA ELIAS Comment: [...] on 2017. Basophil pct 0.4 % [facility] Comment: Interpretive Data Percent cell count reference ranges are not reported, since discordance with absolute values may lead to misinterpretation of CBC data. Current Interpretive Data was last revised on 2017. Blood 08/06/2024 5:04 PM LEARNING MANAGER 08/06/2024 5:24 PM LEARNING MANAGER Taiwo Vázquez MD LAB BLOOD ORDERABLES Fin al Result Performing Organization Address [facility] Co de Phone Number CHARISSA SOLER [id number] [facility] [facility] [place] [address] * (ABNORMAL) CBC with auto differential (08/06/2024 5:04 PM LEARNING MANAGER) WBC 5.5 3.8 - 9.9 K/cumm Hgb 12.3 11.9 - 15.5 g/dL [facility] Hct 35.1(L) 35.6 - 45.5 % [facility] Plt 77(L) 150 - 400 K/cumm [facility] MPV 11.6 9.1 - 12.3 fL [facility] RBC 3.82(L) 3.90 - 5.20 M/cumm [facility] MCV 91.9 81.3 - 96.4 fL [facility] MCH 32.2 27.1 - 33.3 pg [facility] MCHC 35.0 32.3 - 35.7 g/dL [facility] RDW CV 15.7(H) 11.1 - 14.9 % [facility] RDW SD 52.0(H) 35.7 - 48.1 fL [facility] NRBC abs 0.00 0.00 - 0.01 K/cumm [facility] Blood 08/06/2024 5:04 PM LEARNING MANAGER 08/06/2024 5:24 PM LEARNING MANAGER Taiwo Vázquez MD LAB BLOOD ORDERABLES Fin al Result Performing Organization Address [facility] Co de Phone Number CHARISSA ELIAS [id number] [employer] [address] * [id number], Tumor Marker (08/06/2024 5:04 PM LEARNING MANAGER) alpha Fetoprotein <1.8 <=8.3 ng/mL Comment: Interpretive [...] et al. J. Ped Surg 1978;13:155-156 Bertram Mclean. et al. Clin Chem Lab Med 2018;57:783-797 Katya Obregon. et al. Clin Chem 2014;[id number]. Current interpretive data was last revised 2022. Testing performed by: [facility], [address] [place] [address]., [id number] Blood 08/06/2024 5:04 PM LEARNING MANAGER 08/06/2024 8:14 PM LEARNING MANAGER Taiwo Vázquez MD LAB BLOOD ORDERABLES Fin al Result Performing Organization Address City/State/[place] Co de Phone Number [facility] [id number] [place] [address] * Blood culture Blood (08/06/2024 5:04 PM LEARNING MANAGER) Report Final Report: No growth Comment:Testing performed by : [facility], [address] [place] [address]., [id number] Blood 08/06/2024 5:04 PM LEARNING MANAGER 08/07/2024 12:05 PM LEARNING MANAGER Narrative CHARISSA [facility] - 08/12/2024 1:01 PM LEARNING MANAGER Interpretive Data 1. Blood cultures are incubated and monitored continuously for 5 days (120 hours). The first negative report is issued within 24 hours of receipt in the laboratory. 2. All positive cultures are resulted and called to physicians/care providers as soon as they are detected. 3. A rapid molecular test for organism identification may be performed using the [employer] Blood Culture Identification panel. This assay detects microbial DNA in a blood culture broth. This assay has been cleared by the [place] Food and Drug Administration and its performance characteristics have been verified by the [facility] Microbiology Laboratory. Interpretive data was last revised on September 13, 2022. Taiwo Vázquez MD LAB MICROBIOLOGY - GENER AL ORDERABLES Final Result Performing Organization Address [facility] de Phone Number CHARISSA [facility] [address] [place] [address] * (ABNORMAL) Protime-INR (08/06/2024 5:04 PM LEARNING MANAGER) PT 14.1(H) 9.7 - 13.0 sec INR 1.30(H) 0.90 - 1.20 [facility] Comment: Interpretive data Oral anticoagulant therapeutic ranges: Venous thromboembolism prophylaxis or treatment: 2.0-3.0 CARDIOLOGY Standard range: 2.0-3.0 High-intensity range: 2.5-3.5 Refer to indication-specific guidelines for appropriate target ranges for prosthetic heart valve replacement. Current interpretive data was last revised on 2019. Blood 08/06/2024 5:04 PM LEARNING MANAGER 08/06/2024 5:24 PM LEARNING MANAGER Taiwo Vázquez MD LAB BLOOD ORDERABLES Fin al Result Performing Organization Address [facility] de Phone Number CHARISSA [facility] [address] [facility] [employer] [place], [place] [id number] * (ABNORMAL) Hemoglobin A1c (08/06/2024 5:04 PM LEARNING MANAGER) Hgb A1C 8.4(H) 4.0 - 5.6 % Estimated Average Glucose 194 mg/dL [facility] Comment: The ADA recommends reporting an estimated Average Glucose (eAG) with all Hemoglobin A1c results using the equation derived from a study of 507 normal and diabetic adults. Minority populations were underrepresented and children were not included. (Diabetes Care 31:8628-3725, 2008). The eAG is not equivalent to a fasting glucose. Blood 08/06/2024 5:04 PM LEARNING MANAGER 08/06/2024 5:24 PM LEARNING MANAGER Taiwo Vázquez MD LAB BLOOD ORDERABLES Fin al Result [facility] [address] [facility] [place] [address] * (ABNORMAL) Bilirubin, direct (08/06/2024 5:04 PM LEARNING MANAGER) Pathologist [facility] Bilirubin, direct 0.6(H) 0.1 - 0.3 mg/dL Blood 08/06/2024 5:04 PM LEARNING MANAGER 08/06/2024 5:24 PM LEARNING MANAGER Taiwo Vázquez MD LAB BLOOD ORDERABLES Fin al Result Performing Organization Address City/[facility]/[place] Co de Phone Number [facility] [address] [facility] [place] [address] * (ABNORMAL) Comprehensive metabolic panel (08/06/2024 5:04 PM LEARNING MANAGER) Sodium 134(L) 135 - 145 mmol/L Potassium, pl 4.2 3.3 - 4.9 mmol/L CERNER [facility] Chloride 96(L) 97 - 110 mmol/L [facility] CO2 28 22 - 32 mmol/L [facility] Anion gap 10 2 - 15 mmol/L [facility] BUN 24 6 - 25 mg/dL C[facility] Creatinine 1.66(H) 0.60 - 1.10 mg/dL [facility] Glucose 345(H) 70 - 199 mg/dL CERNER [...] Units/L [facility] Blood 08/06/2024 5:04 PM LEARNING MANAGER 08/06/2024 5:24 PM LEARNING MANAGER Taiwo Vázquez MD LAB BLOOD ORDERABLES Fin al Result [facility]SA [facility] [address] [facility] [place] [address] * SCAN - LABS (08/03/2024) Provider Scanning Final Result * (ABNORMAL) eGFR (07/30/2024 1:25 PM LEARNING MANAGER) eGFR 36(L) >=60 mL/min/1. 73 m2 Comment: [...] last reviewed 2021. Blood 07/30/2024 1:25 PM LEARNING MANAGER 07/30/2024 1:39 PM LEARNING MANAGER us Taiwo Vázquez MD LAB BLOOD ORDERABLES Fin al Result [facility] [place] [address] * (ABNORMAL) Comprehensive metabolic panel (07/30/2024 1:25 PM LEARNING MANAGER) Sodium 133(L) 135 - 145 mmol/L Potassium, pl 4.5 3.3 - 4.9 mmol/L [facility] Chloride 96(L) 97 - 110 mmol/L [facility] CO2 29 22 - 32 mmol/L [facility] Anion gap 8 2 - 15 mmol/L [facility] BUN 31(H) 6 - 25 mg/dL [facility] Creatinine 1.59(H) 0.60 - 1.10 mg/dL [facility] Glucose 327(H) 70 - 199 mg/dL [facility] Comment: Interpretive Data Fasting glucose [...] Calcium 9.7 8.5 - 10.3 mg/dL [facility] Bilirubin, total 2.2(H) 0.1 - 1.2 mg/dL [facility] Protein, pl 6.6 6.5 - 8.5 g/dL [facility] Albumin 3.2(L) 3.5 - 5.0 g/dL [facility] Alk phos 117 40 - 130 Units/L [facility] ALT 36 7 - 45 Units/L [facility] AST 42 10 - 45 Units/L [facility] Blood 07/30/2024 1:25 PM LEARNING MANAGER 07/30/2024 1:36 PM LEARNING MANAGER Taiwo Vázquez MD LAB BLOOD ORDERABLES Fin al Result [facility] [place] [address] * (ABNORMAL) Differential, auto (07/30/2024 1:10 PM LEARNING MANAGER) Neutrophil abs 2.8 1.5 - 6.5 K/cumm Imm gran abs 0.0 0.0 - 0.1 K/cumm [facility] Lymphocyte abs 1.1 0.8 - 3.3 K/cumm [facility] Monocyte abs 0.5 0.2 - 0.8 K/cumm [facility] Eosinophil abs 0.8(H) 0.0 - 0.5 K/cumm [facility] Basophil abs 0.0 0.0 - 0.1 K/cumm [facility] Neutrophil pct 52.8 % [facility] Comment: Interpretive Data Percent cell count reference ranges are not reported, since discordance with absolute values may lead to misinterpretation of CBC data. Current Interpretive Data was last revised on 2017. Imm gran pct 0.2 % [facility] Comment: Interpretive Data Percent cell count reference ranges are not reported, since discordance with absolute values may lead to misinterpretation of CBC data. Current Interpretive Data was last revised on 2017. Lymphocyte pct 21.2 % [facility] Comment: Interpretive Data Percent cell count reference ranges are not reported, since discordance with absolute values may lead to misinterpretation of CBC data. Current Interpretive Data was last revised on 2017. Monocyte pct 10.1 % [facility] Comment: Interpretive Data Percent cell count reference ranges are not reported, since discordance with absolute values may lead to misinterpretation of CBC data. Current Interpretive Data was last revised on 2017. Eosinophil pct 14.9 % [facility] Comment: Interpretive Data Percent cell count reference ranges are not reported, since discordance with absolute values may lead to misinterpretation of CBC data. Current Interpretive Data was last revised on 2017. Basophil pct 0.8 % [facility] Comment: Interpretive Data Percent cell count reference ranges are not reported, since discordance with absolute values may lead to misinterpretation of CBC data. Current Interpretive Data was last revised on 2017. Blood 07/30/2024 1:10 PM LEARNING MANAGER 07/30/2024 1:36 PM LEARNING MANAGER us Taiwo Vázquez MD LAB BLOOD ORDERABLES Fin al Result [facility] [place] [address] * (ABNORMAL) CBC with auto differential (07/30/2024 1:10 PM LEARNING MANAGER) WBC 5.2 3.8 - 9.9 K/cumm Hgb 12.6 11.9 - 15.5 g/dL [facility] Hct 37.1 35.6 - 45.5 % [facility] Plt 64(L) 150 - 400 K/cumm [facility] MPV 12.3 9.1 - 12.3 fL [facility] RBC 4.07 3.90 - 5.20 M/cumm [facility] MCV 91.2 81.3 - 96.4 fL [facility] MCH 31.0 27.1 - 33.3 pg [facility] MCHC 34.0 32.3 - 35.7 g/dL [facility] RDW CV 15.4(H) 11.1 - 14.9 % [facility] RDW SD 51.0(H) 35.7 - 48.1 fL [facility] NRBC abs 0.00 0.00 - 0.01 K/cumm [facility] Blood 07/30/2024 1:10 PM LEARNING MANAGER 07/30/2024 1:36 PM LEARNING MANAGER Taiwo Vázquez MD LAB BLOOD ORDERABLES Fin al Result Performing Organization Address [facility] de Phone Number [facility] [place] [address] * (ABNORMAL) Protime-INR (07/30/2024 1:10 PM LEARNING MANAGER) PT 15.1(H) 9.7 - 13.0 sec INR 1.39(H) 0.90 - 1.20 [facility] Comment: Interpretive data Oral anticoagulant therapeutic ranges: Venous thromboembolism prophylaxis or treatment: 2.0-3.0 CARDIOLOGY Standard range: 2.0-3.0 High-intensity range: 2.5-3.5 Refer to indication-specific guidelines for appropriate target ranges for prosthetic heart valve replacement. Current interpretive data was last revised on 2019. Blood 07/30/2024 1:10 PM LEARNING MANAGER 07/30/2024 1:36 PM LEARNING MANAGER Taiwo Vázquez MD LAB BLOOD ORDERABLES Fin al Result Performing Organization Address [facility] de Phone Number [facility] [place] [address] * HLA Antibody Screen by PRA or SAB per Schedule (Class I and Class II) (07/20/2024 10:00 AM LEARNING MANAGER) Blood 07/20/2024 10:0 0 AM LEARNING MANAGER Narrative [facility] - LEARNING MANAGER Sample received in lab. Single Antigen Antibody Screen ordered. Timothy Pardo MD LAB BLOOD ORDERABL ES Final Result [facility] * HLA Antibody Screen - SAB (Class I and Class II) (07/20/2024 10:00 AM LEARNING MANAGER) Class I Treatment EDTA [facility] Class I [...] DR12, DR52 [facility] 07/20/2024 10:0 0 AM LEARNING MANAGER 07/23/2024 10:09 AM LEARNING MANAGER Narrative [facility] - 07/23/2024 10:09 AM LEARNING MANAGER Single-antigen HLA antibody screen is performed on serum samples using a method developed and validated by the [facility] HLA laboratory based on an FDA-approved IVD kit (LABScreen Single-Antigen, [employer], [place], [place]). All patient serum samples are pretreated with EDTA before the screen to prevent complement interference. Additional serum treatments, such as adsorption and DTT treatment, may be performed as indicated. Interpretive comments: Low risk: MFI [id number]. Moderate risk: MFI [id number]. Increased risk: MFI >/= 5000. The presence [...] antigens to avoid. Testing performed at the [facility], [address] [place] [address], 5th floor, [place], [address]. CLIA # [id number]. Rani Smith, Ph.D., Toppiece Cutter, [facility] Laboratory Aurelio Palafox M.D., Ph.D., Accounting Reconciliation Clerk, [facility] Norma Talamantes, Ph.D., CLIA Accounting Reconciliation Clerk, [facility] Current methodology and interpretive comments last revised on 09/06/2022. Timothy Pardo MD LAB BLOOD ORDERABL ES Final Result [facility] * SCAN - LABS (07/20/2024) us Provider Scanning Edited Result - Final * (ABNORMAL) eGFR (06/30/2024 12:36 PM LEARNING MANAGER) eGFR 32(L) >=60 mL/min/1. 73 m2 Comment: [...] reviewed 2021. Blood 06/30/2024 12:3 6 PM LEARNING MANAGER 06/30/2024 1:06 PM LEARNING MANAGER us Taiow Vázquez MD LAB BLOOD ORDERABLES Fin al Result [facility] [place] [address] * (ABNORMAL) Differential, auto (06/30/2024 12:36 PM LEARNING MANAGER) Neutrophil abs 2.7 1.5 - 6.5 K/cumm Imm gran abs 0.0 0.0 - 0.1 K/cumm [facility] Lymphocyte abs 1.0 0.8 - 3.3 K/cumm [facility] Monocyte abs 0.5 0.2 - 0.8 K/cumm [facility] Eosinophil abs 0.7(H) 0.0 - 0.5 K/cumm [facility] Basophil abs 0.0 0.0 - 0.1 K/cumm [facility] Neutrophil pct 54.6 % [facility] Comment: Interpretive Data Percent cell count reference ranges are not reported, since discordance with absolute values may lead to misinterpretation of CBC data. Current Interpretive Data was last revised on 2017. Imm gran pct 0.2 % [facility] Comment: Interpretive Data Percent cell count reference ranges are not reported, since discordance with absolute values may lead to misinterpretation of CBC data. Current Interpretive Data was last revised on 2017. Lymphocyte pct 21.3 % [facility] Comment: Interpretive Data Percent cell count reference ranges are not reported, since discordance with absolute values may lead to misinterpretation of CBC data. Current Interpretive Data was last revised on 2017. Monocyte pct 10.0 % [facility] Comment: Interpretive Data Percent cell count reference ranges are not reported, since discordance with absolute values may lead to misinterpretation of CBC data. Current Interpretive Data was last revised on 2017. Eosinophil pct 13.5 % [facility] Comment: Interpretive Data Percent cell count reference ranges are not reported, since discordance with absolute values may lead to misinterpretation of CBC data. Current Interpretive Data was last revised on 2017. Basophil pct 0.4 % [facility] Comment: Interpretive Data Percent cell count reference ranges are not reported, since discordance with absolute values may lead to misinterpretation of CBC data. Current Interpretive Data was last revised on 2017. Blood 06/30/2024 12:3 6 PM LEARNING MANAGER 06/30/2024 12:59 PM LEARNING MANAGER us Taiwo Vázquez MD LAB BLOOD ORDERABLES Fin al Result [facility] [place] [address] * (ABNORMAL) CBC with auto differential (06/30/2024 12:36 PM LEARNING MANAGER) WBC 4.9 3.8 - 9.9 K/cumm Hgb 12.5 11.9 - 15.5 g/dL [facility] Hct 37.3 35.6 - 45.5 % [facility] Plt 59(L) 150 - 400 K/cumm [facility] MPV 11.7 9.1 - 12.3 fL [facility] RBC 4.02 3.90 - 5.20 M/cumm [facility] MCV 92.8 81.3 - 96.4 fL [facility] MCH 31.1 27.1 - 33.3 pg [facility] MCHC 33.5 32.3 - 35.7 g/dL [facility] RDW CV 15.4(H) 11.1 - 14.9 % [facility] RDW SD 52.5(H) 35.7 - 48.1 fL [facility] NRBC abs 0.00 0.00 - 0.01 K/cumm [facility] Blood 06/30/2024 12:3 6 PM LEARNING MANAGER 06/30/2024 12:59 PM LEARNING MANAGER Taiwo Vázquez MD LAB BLOOD ORDERABLES Fin al Result Performing Organization Address [facility] de Phone Number [facility] [place] [address] * (ABNORMAL) Protime-INR (06/30/2024 12:36 PM LEARNING MANAGER) Pathologist [facility] PT 13.4(H) 9.7 - 13.0 sec INR 1.24(H) 0.90 - 1.20 [facility] Comment: Interpretive data Oral anticoagulant therapeutic ranges: Venous thromboembolism prophylaxis or treatment: 2.0-3.0 CARDIOLOGY Standard range: 2.0-3.0 High-intensity range: 2.5-3.5 Refer to indication-specific guidelines for appropriate target ranges for prosthetic heart valve replacement. Current interpretive data was last revised on 2019. Blood 06/30/2024 12:3 6 PM LEARNING MANAGER 06/30/2024 12:59 PM LEARNING MANAGER Taiwo Vázquez MD LAB BLOOD ORDERABLES Fin al Result Performing Organization Address [facility] Co de Phone Number [facility] [place] [address] * (ABNORMAL) Comprehensive metabolic panel (06/30/2024 12:36 PM LEARNING MANAGER) Pathologist [facility] Sodium 135 135 - 145 mmol/L Potassium, pl 4.4 3.3 - 4.9 mmol/L [facility] Chloride 100 97 - 110 mmol/L [facility] CO2 28 22 - 32 mmol/L [facility] Anion gap 7 2 - 15 mmol/L [facility] BUN 28(H) 6 - 25 mg/dL [facility] Creatinine 1.77(H) 0.60 - 1.10 mg/dL [facility] Glucose 199 70 - 199 mg/dL [facility] Comment: Interpretive Data Fasting glucose [...] 2022. Calcium 9.3 8.5 - 10.3 mg/dL [facility] Bilirubin, total 2.0(H) 0.1 - 1.2 mg/dL [facility] Protein, pl 6.4(L) 6.5 - 8.5 g/dL [facility] Albumin 3.2(L) 3.5 - 5.0 g/dL [facility] Alk phos 115 40 - 130 Units/L [facility] ALT 36 7 - 45 Units/L [facility] AST 39 10 - 45 Units/L [facility] Blood 06/30/2024 12:3 6 PM LEARNING MANAGER 06/30/2024 12:59 PM LEARNING MANAGER Taiwo Vázquez MD LAB BLOOD ORDERABLES [facility] al Result Performing Organization Address City/State/[place] Co de Phone Number [facility] [place] [address] * Pap and High Risk HPV and Genotyping (Cytology Component) (04/28/2024 10:41 AM CDT) Thin prep (Pap test) 04/28/2024 10:41 AM CDT 04/28/2024 1:00 PM CDT Narrative PATHOLOGY [facility] - 05/04/2024 4:21 PM CDT EPIC results best viewed via link to PDF [facility], [place] [address] Note to Patients: This report may contain [...] Gender: F : 1960 (Age: 63) Address: [address] [place] [address] Hospital #: [id number] Service: Medical Location: [place] [address] Patient Type: [facility] Inpatient Taken: 04/28/2024 Received: 04/28/2024 Accessioned: [...] this test have been verified by the [facility] laboratory. Correlate with reported cytology results, as applicable. Interpretive data last revised 23 jhosie/05/04/2024 16:21 JEANNIE Worthington(ASCP) Report Electronically Reviewed and Signed Out By JEANNIE Worthington(ASC) 05/04/2024 16:21:37 Cervicovaginal Cytology (Pap Test) Disclaimer: The Pap test is a screening test used to detect cervical cancer and its precursors; it is not a diagnostic procedure. False negative and false positive results do occur. Pap test results should be interpreted in the context of pertinent clinical information and biopsy results as indicated. [facility] Clinical Laboratory Improvement Amendments (CLIA) mandate that cytologic and histologic results be correlated for laboratory quality technician & improvement standards. FOR ALL HIGH-GRADE CASES [...] determined by the Surgical Pathology Department at [facility] as part of an ongoing advanced quality engineer program and in compliance with federally mandated [...] determined by the Surgical Pathology Department of [facility]. It has not been cleared or approved by the U. S. Food and Drug Administration. Eladio Carey MD LAB CYTOLOGY ORDERABLES Final Result PATHOLOGY [facility] 3rd Floor [place], [place] [phone] * Screening Mammogram Bilateral W Pal (04/27/2024 1:55 PM CDT) Anatomical Region Laterality Modality Breast Bilateral Mammography Narrative 04/27/2024 1:52 PM CDT Mammogram Technique: Bilateral Digital Breast Tomosynthesis, Bilateral C-view 2D Screening mammogram. Views obtained: bilateral craniocaudal and bilateral mediolateral oblique. Computer Aided Detection was performed. Mammogram Findings: The present examination has been compared to prior imaging studies performed at [facility] on 05/15/2021 and 12/06/2021. There are [...] compared to prior imaging studies performed at [facility] on 05/15/2021 and 12/06/2021. There are [...] revised on 2018. Triglycerides 43 <=149 mg/dL [facility] Comment: Interpretive Data Ages < [...] revised on 2018. HDL 64 >=40 mg/dL [facility] Comment: Interpretive Data Ages < [...] on 2018. LDL, calculated 47 <=129 mg/dL [facility] Comment: Interpretive Data Ages < or = 19 years Acceptable: <110 mg/dL Borderline high: 110-129 mg/dL High: >or= 130 mg/dL Ages > or = 20 years Optimal: <100 mg/dL Near optimal: 100-129 mg/dL Borderline high: 130-159 mg/dL High: >160 mg/dL Calculated using the Alonso LDL-C estimating equation. This equation was implemented on 2024. Prior to this date LDL-C was estimated using the Friedewald equation. Literature References: 1. Expert Panel on Integrated Guidelines for Cardiovascular Health and Risk Reduction in Children and Adolescents. Pediatrics 2011;128:S213 2. NCEP Expert Panel. Circulation 2004;110:227 3. Gavin M et al. SCOTT Cardiol. 2020 December 10;5(5):540-548. doi: 10.1001/jamacardio.2020.0013 Current Interpretive Data was last revised on 2024. Non-HDL Cholesterol 58 mg/dL [facility] Comment: Interpretive Data Ages < [...] last revised on 2018. Chol/HDL ratio 2 [facility] Blood 04/22/2024 12:5 8 AM CDT 04/22/2024 3:00 AM CDT us John Paul Reddy MD LAB BLOOD ORDERABLES Final Resul t [facility] [place] [address] * Hepatitis C antibody Blood (06/16/2023 6:09 AM LEARNING MANAGER) Hep C Ab Nonreactive Nonreactive [facility] Comment:Antibodies to HCV no t detected. Does NOT exclude the possibility of recent exposure to HCV. Current interpretive data was last revised on 22 Blood 06/16/2023 6:09 AM LEARNING MANAGER 06/16/2023 6:35 AM LEARNING MANAGER us Alejandro Frazier MD LAB MICROBIOLOGY - GENERAL ORDERABLES Final Result [facility] [place] [address] * COLONOSCOPY (05/30/2022 9:28 AM CDT) Anatomical Region Laterality Modality Other Narrative Procedure Note Pat Robins MD - 05/30/2022 9:28 AM CDT [facility] ENDOS[facility] Patient Name: Aleah Levine Procedure Date: 05/30/2022 9:28 AM Date of : 1960 Admit Type: Outpatient Age: 61 Gender: Female Attending MD: Pat Robins M.D. Room: [facility] END[facility] 3 Note Status: Finalized Procedure: [...] The scope was passed under direct vision.The [facility] [id number] endoscope was introducedthrough the anus and [...] On: 05/30/2022 9:28 AM Recognized by the [place] Society for Gastrointestinal Endoscopy for promoting quality in endoscopy Pat Robins MD ENDOSCOPY PROCEDURES Ju l Result * Albumin Creatinine Ratio, Urine (03/01/2021 2:45 PM CDT) Albumin Ur <12.0 mg/L [facility] Comment: Interpretive Data No reference range established. Current interpretive data was last revised 2018. Creatinine Ur 59.5 mg/dL [facility] Comment: Interpretive Data No reference range established. Current interpretive data was last revised 2018. Albumin Creatinine Ratio, Ur <20 1 - 29 mg/g [facility] Urine 03/01/2021 2:45 PM CDT 03/01/2021 3:41 PM CDT Oly Baker MD LAB URINE ORDER [place] Final Result [facility] [place] [address] from Last 3 Months or Most Recently Relevant to Health Maintenance Insurance [facility] BLUE [place] [facility] Member Subscriber Plan / Payer (Ef fective 2018-Present) Name:Aleah Levine Relation to Subscriber:Self Name:ALEAH LEVINE Payer ID:[id number] (NAIC) Type:[employer] Address: [address] [facility]ESS [facility] Member Subscriber Plan / Payer (Ef fective 2021-Present) Name:Aleah Levine Relation to Subscriber:Self Name:Aleah Levine Payer ID:[id number] (NAIC) Type:[employer] Address: [address] [employer] TRANSPLANT [employer] RISK [employer] [address] TRANSPLANT [employer] MED[employer] RISK TRANSPLANT [employer] RISK [employer] [place] [address] Advance Directives For more information, please contact: [phone] * Full Code (Latest Code Status on [...] 3:22 PM 01/03/2023 6:29 PM Care Teams Fruit Dumper Relationship Specialty Start Date End Date Maddy Romano MD [address] [place] [address] PCP - General 09/28/16 Manas Ibarra MD [address] [place] [address] Referring Physician Thoracic Surgery 11/05/18 Zion Barton MD [address] [place] [address] Radiation Oncologist Radiation Oncology 05/05/19 Molina Charles MD [address] [place], [place] [address]Z [address] [place], [place] [address] Referring Physician Transplant Hepatology 12/15/20 Inés Lemus, TYRA [address] [facility] [address] [place], [place] [id number] Toddler Caregiver 10/31/21 Karuna Maria, OT Occupational Therapist Occupational Therapy 09/20/22 Renu Treviño NP [address] [facility] [address] [place], [place] [id number] Nurse Practitioner Radiation Oncology 11/08/22 Eladio Mcrae MD [address] [place] [address] Referring Physician Obstetrics and Gynecology 11/15/22 Tamiko Schroeder, RN [address] [place] [address] Toddler Caregiver 04/27/24
--- OUTSIDE RECORDS SUMMARY | 2024-09-24 03:05 | XMS_ITS | Clinical Summary ---
Author Organization [facility] Address [address] [place] [address] Phone Care Team Providers Care Rn Clinical Name Role Phone Unavailable Primary Care Provider Unavailabl e Allergies No known active allergies Medications acetaminophen (TYLENOL) 325 mg tablet Take 325 mg by mouth every 8 hours. Active glucagon (BAQSIMI) 3 mg/spray [place], Non-Aerosol 1 [place]. GIVE 1 spray in one NOSTRIL ONE [...] STOOL Negative Negative 04/03/2024 3:27 AM CDT [facility]ORATORY [facility] Stool STOOL SPECIMEN / Unknown Collection / Unknown 04/03/2024 1:23 AM CDT 04/03/2024 1:24 AM CDT Marcos Newton MD BODY FLUIDS AND STOOLS Final R esult [facility] [employer] [facility] CLIA# [id number] [place] [address] * LIPID PANEL (04/03/2024 12:30 AM CDT) CHOLESTEROL 114 <200 mg/dL 04/03/2024 1:34 AM CDT [facility] [employer] [facility] TRIGLYCERIDE 62 <150 mg/dL 04/03/2024 1:34 AM CDT [facility] [employer] [facility] HDL 50 40 - 59 mg/dL 04/03/2024 1:34 AM CDT [facility] [employer] [facility] LDL CALCULATED 52 <100 mg/dL 04/03/2024 1:34 AM CDT [facility] NON-HDL CHOLESTEROL 64 <130 mg/dL 04/03/2024 1:34 AM CDT [facility] [employer] [facility] Blood Venipuncture / Unknown 04/03/2024 12:30 AM CDT 04/03/2024 1:04 AM CDT [facility] - 04/03/2024 1:34 AM CDT TOTAL CHOLESTEROL [...] Newton MD CHEMISTRY ORDERABLES Final Res ult [facility] CLIA# [id number] [place] [address] * (ABNORMAL) HEMOGLOBIN A1C (04/02/2024 6:29 PM CDT) HEMOGLOBIN A1C 6.5(H) <=5.6 % 04/02/2024 7:01 PM CDT [facility] EST. AVG GLUCOSE, A1C 140 mg/dL 04/02/2024 7:01 PM CDT [facility] Blood Venipuncture / Unknown 04/02/2024 6:29 PM CDT 04/02/2024 6:34 PM CDT [facility] - 04/02/2024 7:01 PM CDT HGB A1C INTERPRETATION NORMAL: <5.7% PRE-DIABETES: 5.7 - 6.4% DIABETES: 6.5% OR GREATER Marcos Newton MD CHEMISTRY ORDERABLES Final Res ult [facility] CLIA# [id number] [place] [address] from Last 3 Months or Most Recently Relevant to Health Maintenance Insurance [facility] [id number] RX [employer] Member Subscriber Plan / Payer (Ef fective 2024-Present) Name:Aleah Levine Relation to Subscriber:Self Name:Aleah Levine Payer ID:Not on file Group ID:[id number] Type:RX Medicare Part D Address: [place] Advance Directives For more information, please contact: [phone] * Full Code (Latest Code Status on File) Date Activated Date Inactivated Comments 04/02/2024 6:16 PM 04/06/2024 2:11 PM
--- OUTSIDE RECORDS SUMMARY | 2024-09-24 03:05 | XMS_ITS | Encounter Summary ---
Author Organization [facility] Address [address] [place] [address] Phone Care Team Providers Care Biochemical Development Engineer Name Role Phone Maddy Romano MD Primary Care Provider [phone] Astrid Haq NP Unavailable Manas Ibarra MD Unavailable Zion Barton MD Unavailable Molina Charles MD Unavailable [phone] Inés Lemus RN Unavailable [phone] Karuna Maria OT Unavailable Unavaila Renu Paul NP Unavailable [phone] Eladio Mcrae MD Unavailable Tamiko Schroeder RN Unavailable [phone] Briana Poe RN Unavailable Encounter Details Date Type Department Care Team (Latest Contact Info) Description 08/18/2020 Orders Only [facility] Scanning, Provider Social History Tobacco Use Types Packs/Day Years Used Date Smoking Tobacco: Former Cigarettes Q uit: 2010 Smokeless Tobacco: Never Comments No Sex and Gender Information Value Date Recorded Sex Assigned at Not on file Legal Sex Female 8:22 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 Gender Identity Female 11/15/2021 2:30 AM CDT [...] documented as of this encounter Care Teams Biochemical Development Engineer Relationship Specialty Start Date End Date Maddy Romano MD [address] [place] [address] PCP - General 09/28/16 Astrid Haq NP [address] [place] [address] Nurse Practitioner Radiation Oncology 11/05/18 11/07/22 Manas Ibarra MD [address] [place] [address] Referring Physician Thoracic Surgery 11/05/18 Zion Barton MD [address] [place] [address] Radiation Oncologist Radiation Oncology 05/05/19 Molina Charles MD [address] [place] [address] [address] [place] [address] Referring Physician Transplant Hepatology 12/15/20 Inés Lemus RN [address] [facility] [address] [place] [address] Professional Employer Consultant 10/31/21 Karuna Maria, OT Occupational Therapist Occupational Therapy 09/20/22 Renu Treviño NP [address] [facility] [address] [place] [address] Nurse Practitioner Radiation Oncology 11/08/22 Eladio Mcrae MD [address] [place] [address] Referring Physician Obstetrics and Gynecology 11/15/22 Tamiko Schroeder RN [address] [place] [address] Professional Employer Consultant 04/27/24 Briana Poe RN [address] [facility] [address] [place] [address] [facility] Outpatient Regional Geodetic Advisor 04/30/24 05/28/24 documented as of this encounter
--- OUTSIDE RECORDS SUMMARY | 2024-09-24 03:05 | XMS_ITS | Encounter Summary ---
Author Organization [facility] Address [address] [place] [address] Care Team Providers Care Strategic Partner Development Manager Name Role Phone Unavailable Primary Care Provider Unavailabl e Reason for Visit * Reason Onset Date Comments TR on CKD 04/02/2024 Spoke w/Dr. Mueller Stroke/CVA 04/02/2024 Spoke w/Gladys @ Dr. Anthony's exchange Encounter Details Date Type Department Care Team (Late st Contact Info) Description 04/02/2024 Telephone [facility] Emergency [address] [place] [address] Marcos Newton MD [address] [place] [phone] TR on CKD (Spoke w/Dr. Mueller); [...]
--- OUTSIDE RECORDS SUMMARY | 2024-09-24 03:05 | XMS_ITS | Encounter Summary ---
Author Organization [facility] Address [address] [place] [address] Care Team Providers Care Medical Technologist Blood Bank Name Role Phone Maddy Romano MD Primary Care Provider [phone] Astrid Haq NP Unavailable Manas Ibarra MD Unavailable Zion Barton MD Unavailable Molina Charles MD Unavailable [phone] Inés Lemus RN Unavailable [phone] Karuna Maria OT Unavailable Unavaila Renu Paul NP Unavailable [phone] Eladio Mcrae MD Unavailable [phone] Tamiko Schroeder RN Unavailable [phone] Briana Poe RN Unavailable [phone] Reason for Visit * Reason Onset Date Comments Ready to scheduled 04/26/2022 Encounter Details Date Type Department Care Team (Late st Contact Info) Description 04/26/2022 Telephone [facility] Specialty Services [address] [place] [phone] Miscellaneous, Not In File Ready to scheduled [...] on file 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 Gender Identity Female 11/15/2021 2:30 AM CDT [...] documented as of this encounter Care Teams Medical Technologist Blood Bank Relationship Specialty Start Date End Date Maddy Romano MD [address] [place] [address] PCP - General 09/28/16 Astrid Haq NP [address] [place] [address] Nurse Practitioner Radiation Oncology 11/05/18 11/07/22 Manas Ibarra MD [address] [place] [address] Referring Physician Thoracic Surgery 11/05/18 Zion Barton MD [address] [place] [address] Radiation Oncologist Radiation Oncology 05/05/19 Molina Charles MD [address] [facility] [address] [place] [address] Referring Physician Transplant Hepatology 12/15/20 Inés Lemus RN [address] [facility] [address] [place] [address] Tube Bending Machine Operator 10/31/21 Karuna Maria, OT Occupational Therapist Occupational Therapy 09/20/22 Renu Treviño NP [address] [facility] [address] [place] [address] Nurse Practitioner Radiation Oncology 11/08/22 Eladio Mcrae MD [address] [place] [address] Referring Physician Obstetrics and Gynecology 11/15/22 Tamiko Schroeder RN [address] [place] [address] Tube Bending Machine Operator 04/27/24 Briana Poe RN [address] [facility] [address] [place] [address] [facility] Outpatient Asian Art Curator 04/30/24 05/28/24 documented as of this encounter
--- OUTSIDE RECORDS SUMMARY | 2024-09-24 03:05 | XMS_ITS ---
Author Organization [facility] Address [address] [place] [address] Care Team Providers Care Naval Science Teacher Name Role Phone Maddy Romano MD Primary Care Provider [phone] Manas Ibarra MD Unavailable Zion Barton MD Unavailable Molina Charles MD Unavailable [phone] Inés Lemus RN Unavailable [phone] Karuna Maria OT Unavailable Unavaila Renu Paul NP Unavailable [phone] Eladio Mcrae MD Unavailable [phone] Tamiko Schroeder RN Unavailable [phone] Transplant Episode Kidney Candidate [facility] ([place], [place]) [facility] Center waitlisted on 05/07/2024 Marked as Inactive on 05/26/2024 Reason: Candidate requires multi-organ [place] only, isolated offers not accepted Kidney CoordinatorTamiko Schroeder RN Email: N/A Scores Score Value Updated Exceptions/Reas ons CPRA Not available EPTS (Calc) 55 09/24/2024 [place] Organ Diagnosis Organ Primary Contributory Kidney Other, Specify - 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
--- NOTE | 2024-09-24 03:08 | ED_ITS ---
HPI - Altered Mental Status General Chief Complaint: Altered Mental Status <Wilian Wong MD - Last Filed: 09/24/24 03:28> Stated Complaint: discomfort <Wilian Wong MD - Last Filed: 09/24/24 03:28> Time Seen by Provider: 09/24/24 03:08 <Wilian Wong MD - Last Filed: 09/24/24 03:28> Source: family and EMS <Wilian Wong MD - Last Filed: 09/24/24 03:28> Mode of arrival: EMS <Wilian Wong MD - Last Filed: 09/24/24 03:28> Limitations: no limitations <Wilian Wong MD - Last Filed: 09/24/24 03:28> History of Present Illness HPI narrative: 63-year-old female, ex-smoker with a history of LYONS cirrhosis, hepatic encephalopathy on Xifaxan min and lactulose, CKD, diabetes mellitus, recurrent falls, thrombocytopenia, portal vein thrombosis, was brought in by EMS for -- altered mental status. Patient is confused and unable to answer questions. She has had prior episodes of altered mental status secondary to hepatic encephalopathy. The patient has been taking her lactulose and rifaximin. Patient is on a transplant list for liver kidney transplant. -- Patient was sitting on the floor. Patient is unable to provide any history. Patient was recently started on an antibiotic for dental infection. blood sugar was noted to be 300. <Wilian Wong MD - Last Filed: 09/24/24 03:28> MD complaint: altered mental status, confusion and decreased responsiveness <Wilian Wong MD - Last Filed: 09/24/24 03:28> Onset (ago): day(s) ( One day) <Wilian Wong MD - Last Filed: 09/24/24 03:28> Timing confirmed by: spouse <Wilian Wong MD - Last Filed: 09/24/24 03:28> Consistency of symptoms: waxing and waning <Wilian Wong MD - Last Filed: 09/24/24 03:28> Context: history of similar presentation and diabetes <Wilian Wong MD - Last Filed: 09/24/24 03:28> Related Data Home Medications: Home Medications ?Medication ?Instructions ?Recorded ?Confirmed ?Last Taken ?Type ondansetron HCl 4 mg tablet 4 mg PO DAILY PRN nausea and 04/01/24 09/24/24 Unknown History vomiting prochlorperazine maleate 10 mg 10 mg PO DAILY PRN nausea 04/01/24 09/24/24 Unknown History tablet rifaximin 550 mg PO BID 04/01/24 09/24/24 Unknown History bumetanide 1 mg tablet 2 mg PO DAILY 09/24/24 09/24/24 Unknown History gabapentin 300 mg capsule 100 mg PO TID PRN pain 09/24/24 09/24/24 Unknown History (Neurontin) insulin glargine 100 unit/mL 20 unit subcut QPM DIABETES 09/24/24 09/24/24 Unknown History subcutaneous solution (Lantus U-100 Insulin) insulin lispro 100 unit/mL 2 unit subcut DAILY 09/24/24 09/24/24 Unknown History subcutaneous solution (Humalog U-100 Insulin) lactulose 20 gram/30 mL oral 20 g PO TID 09/24/24 09/24/24 Unknown History solution linaclotide 145 mcg capsule 145 mcg PO DAILY 09/24/24 09/24/24 Unknown History (Linzess) spironolactone 100 mg tablet 300 mg PO DAILY 09/24/24 09/24/24 Unknown History thiamine mononitrate (vit B1) 100 100 mg PO DAILY 09/24/24 09/24/24 Unknown History mg tablet zinc sulfate 50 mg zinc (220 mg) 220 mg PO DAILY 09/24/24 09/24/24 Unknown History capsule <Wilian Wong MD - Last Filed: 09/24/24 03:28> Allergies/Adverse Reactions: Allergies Allergy/AdvReac Type Severity Reaction Status Date / Time Sulfa (Sulfonamide Allergy Mild ITCHING Verified 09/24/24 03:26 Antibiotics) sulfanilamide Allergy Unknown Other Verified 09/24/24 03:26 <Wilian Wong MD - Last Filed: 09/24/24 03:28> Review of Systems 2 Review of Systems: ROS unobtainable: Yes unobtainable due to mental status <Wilian Wong MD - Last Filed: 09/24/24 03:28> PMFSH Past Medical History Medical History: Medical History Hyperammonemia Liver failure Confusion Cirrhosis C. difficile colitis (~12/2019) Lung cancer Portal vein thrombosis HTN (hypertension) Thrombocytopenia Diabetes mellitus <Wilian Wong MD - Last Filed: 09/24/24 03:28> Surgical History Surgical History: Surgical History H/O sinus surgery History of liver biopsy History of endometrial ablation <Wilian Wong MD - Last Filed: 09/24/24 03:28> Family History Family History: Family History Mother Family history of malignant neoplasm of breast in first degree relative Father Family history of malignant neoplasm of esophagus Mother Cerebrovascular accident Sibling Hypertension Congestive heart failure <Wilian Wong MD - Last Filed: 09/24/24 03:28> Social History Social History: Social History Smoking packs per day: 0.5 Smoking cigarettes per day: 10.0 Years smoked: 51 Smoking pack-years: 25.50 Smoking status: Former smoker Tobacco type: cigarettes Second hand tobacco smoke exposure: Yes Smoking end date: 10/10/21 Alcohol intake: unknown Drinks per week: 1 Substance use: unknown Substance use type: does not use Gender identity (if verbalized by the patient): Female Spiritual care concerns: No (she is a Hinduism) <Wilian Wong MD - Last Filed: 09/24/24 03:28> Exam 2 Narrative: Vitals are stable. Afebrile saturating 100% on room air. <Wilian Wong MD - Last Filed: 09/24/24 03:28> Const: General: confusion <Wilian Wong MD - Last Filed: 09/24/24 03:28> Orientation/consciousness: patient oriented x3 ( Patient is drowsy and unable to answer questions.) <Wilian Wong MD - Last Filed: 09/24/24 03:28> Limitations: altered mental status <Wilian Wong MD - Last Filed: 09/24/24 03:28> HENMT: Head: normal to inspection <Wilian Wong MD - Last Filed: 09/24/24 03:28> Ears: external ears normal <Wilian Wong MD - Last Filed: 09/24/24 03:28> Face/Nose/Sinus: Normal external nose present <Wilian Wong MD - Last Filed: 09/24/24 03:28> Face and sinus: normal facial exam <Wilian Wong MD - Last Filed: 09/24/24 03:28> Throat: posterior oropharynx normal <Wilian Wong MD - Last Filed: 09/24/24 03:28> Eyes: Conjunctivae: conjunctivae normal <Wilian Wong MD - Last Filed: 09/24/24 03:28> Pupils: Equal, round and reactive pupils present <Wilian Wong MD - Last Filed: 09/24/24 03:28> EOM: EOMs intact bilaterally <Wilian Wong MD - Last Filed: 09/24/24 03:28> Neck: Neck: normal visual inspection, no lymphadenopathy and no meningeal signs <Wilian Wong MD - Last Filed: 09/24/24 03:28> Chest: Chest palpation & inspection: normal inspection of the chest < Wilian Wong MD - Last Filed: 09/24/24 03:28> Resp: Effort & Inspection: normal respiratory effort <Wilian Wong MD - Last Filed: 09/24/24 03:28> Auscultation: rhonchi and diminished lung sounds <Wilian Wong MD - Last Filed: 09/24/24 03:28> Cardio: Rate: regular rate <Wilian Wong MD - Last Filed: 09/24/24 03:28> Rhythm: regular rhythm <Wilian Wong MD - Last Filed: 09/24/24 03:28> GI: GI Palp: Yes Soft to palpation <Wilian Wong MD - Last Filed: 09/24/24 03:28> Auscultation: normal bowel sounds <Wilian Wong MD - Last Filed: 09/24/24 03:28> Other: No tenderness/rigidity / rebound. <Wilian Wong MD - Last Filed: 09/24/24 03:28> : General: Yes no CVA tenderness <Wilian Wong MD - Last Filed: 09/24/24 03:28> Skin: General skin exam: normal color <Wilian Wong MD - Last Filed: 09/24/24 03:28> Other: Bruising of the right knee. <Wilian Wong MD - Last Filed: 09/24/24 03:28> Neuro: General: moves all extremities and no meningeal signs <Wilian Wong MD - Last Filed: 09/24/24 03:28> Other: Patient is nonverbal. Patient is drowsy and unable to answer questions and follow commands. Moves all limbs spontaneously. <Wilian Wong MD - Last Filed: 09/24/24 03:28> Course Course Emergency Course: Spoke to nursing home physician and ER physician that accepted patient for transfer to [place] [facility]. The patient was given IV fluids and lactulose 20mg p.o. and also rectal suppository. Ammonia level 154, lactic acid of 4.5 and repeat lactic was 3.1. impression encephalopathy Condition stable Disposition transfer to acute hospital <Louie Malone MD - Last Filed: 09/26/24 10:36> Vital Signs Vital signs: Vital Signs Pulse Rate 67 09/24/24 03:05 Respiratory Rate 18 09/24/24 03:05 Blood Pressure 121/57 L 09/24/24 03:05 Pulse Oximetry 98 09/24/24 03:05 Temperature 36.6 C 09/24/24 10:45 Pulse Rate 89 09/24/24 10:59 Respiratory Rate 18 09/24/24 10:45 Blood Pressure 135/84 09/24/24 10:45 Pulse Oximetry 97 09/24/24 10:45 Oxygen Delivery Room Air 09/24/24 07:00 <Wilian Wong MD - Last Filed: 09/24/24 03:28> Vital Signs Pulse Rate 67 09/24/24 03:05 Respiratory Rate 18 09/24/24 03:05 Blood Pressure 121/57 L 09/24/24 03:05 Pulse Oximetry 98 09/24/24 03:05 Temperature 36.6 C 09/24/24 10:45 Pulse Rate 89 09/24/24 10:59 Respiratory Rate 18 09/24/24 10:45 Blood Pressure 135/84 09/24/24 10:45 Pulse Oximetry 97 09/24/24 10:45 Oxygen Delivery Room Air 09/24/24 07:00 <Louie Malone MD - Last Filed: 09/26/24 10:36> MDM - Altered Mental Status Lab Data Result diagrams: 09/24/24 03:24 09/24/24 03:25 <Wilian Wong MD - Last Filed: 09/24/24 03:28> Labs: Lab Results 09/24/24 09/24/24 09/24/24 Range/Units 03:15 03:24 03:25 WBC 6.6 (4.8-10.8) K/mm3 RBC 4.48 (4.20-5.40) M/mm3 Hgb 14.2 (12.0-15.0) g/dL Hct 40.6 (35.0-49.0) % MCV 90.6 (78.0-102.0) fL MCH 31.7 H (27.0-31.0) pg MCHC 35.0 (32-36) g/dL RDW 14.3 (11.6-14.4) % Plt Count 94 L (150-420) K/mm3 MPV 12.3 H (9.2-11.8) fl Immature Gran % (Auto) 0.5 H (0.0-0.0) % Neut % (Auto) 57.7 (50.0-70.0) % Lymph % (Auto) 21.8 (18.0-42.0) % [place] % (Auto) 12.5 H (2.0-11.0) % Eos % (Auto) 6.9 H (1.0-6.0) % Baso % (Auto) 0.6 (0.0-1.0) % Lymph # (Auto) 1.45 (1.10-4.50) K/mm3 [place] # (Auto) 0.83 (0.10-0.90) K/mm3 Eos # (Auto) 0.46 (0.02-0.50) K/mm3 Baso # (Auto) 0.04 (0.00-0.10) K/mm3 Abs Immat Gran (auto) 0.03 H (0.00-0.00) K/mm3 Absolute Neuts (auto) 3.83 (1.70-7.20) K/mm3 Absolute Nucleated RBC 0.00 (0.00-0.00) K/mm3 Nucleated RBC % 0.0 (0-0.0) % PT 12.2 H (9.50-12.1) Seconds INR 1.1 Sodium 134 L (136-145) mmol/L Potassium 3.3 L (3.5-5.1) mmol/L Chloride 94 L (98-108) mmol/L Carbon Dioxide 28 (21-32) mmol/L Anion Gap 12 (4-12) mmol/L BUN 62 H (7-18) mg/dL Creatinine 3.32 H (0.55-1.02) mg/dL Estim Creat Clear Calc 21 ml/min Estimated GFR 14 L (59 - ) Glucose 325 H (70-99) mg/dL POC Capillary Glucose 330 H (65-105) mg/dl Calculated Osmolality 308 H (285-295) mOsm/kg Lactic Acid 4.5 H (0.4-2.0) mmol/L Calcium 10.4 H (8.5-10.1) mg/dL Magnesium 2.0 (1.8-2.4) mg/dL Total Bilirubin 3.2 H (0.00-1.00) mg/dL Direct Bilirubin 1.0 H (0-0.2) mg/dL AST 37 (15-37) U/L ALT 21 (14-59) U/L Alkaline Phosphatase 117 H (46-116) U/L Ammonia 154 H (11-32) umol/L Total Creatine Kinase 503 H (26-192) U/L Troponin I 37.9 (0.00-60.4) ng/L NT-Pro-B Natriuret Pep 172 H (0-125) pg/mL Total Protein 6.9 (6.4-8.2) g/dL Albumin 3.1 L (3.4-5.0) g/dL Lipase 132 H (16-77) U/L TSH 2.86 (0.36-3.74) uIU/mL Urine Color (Yellow) Urine Appearance (Clear) Urine pH (5.0-8.0) Ur Specific [place] (1.010-1.020) Urine Protein (Negative) Urine Glucose (UA) (Negative) Urine Ketones (Negative) Ur Blood (Man) (Negative) Urine Nitrate (Negative) Urine Bilirubin (Negative) Urine Urobilinogen (0.2-1.0) mg/dL Leukocyte Esterase Rfl (Negative) СВЕТЛАНА/UL Urine Opiates Screen (Negative) Urine Methadone Screen (Negative) Ur Barbiturates Screen (Negative) Ur Phencyclidine Scrn (Negative) Ur Amphetamine Screen (Negative) U Benzodiazepines Scrn (Negative) Urine Cocaine Screen (Negative) U Cannabinoids Screen (Negative) Influenza A (RT-PCR) Negative (Negative) Influenza B (RT-PCR) Negative (Negative) RSV (RT-PCR) Negative (Negative) SARS-CoV-2 RNA (RT-PCR) Negative (Negative) 09/24/24 09/24/24 09/24/24 Range/Units 03:37 05:31 06:59 WBC (4.8-10.8) K/mm3 RBC (4.20-5.40) M/mm3 Hgb (12.0-15.0) g/dL Hct (35.0-49.0) % MCV (78.0-102.0) fL MCH (27.0-31.0) pg MCHC (32-36) g/dL RDW (11.6-14.4) % Plt Count (150-420) K/mm3 MPV (9.2-11.8) fl Immature Gran % (Auto) (0.0-0.0) % Neut % (Auto) (50.0-70.0) % Lymph % (Auto) (18.0-42.0) % [place] % (Auto) (2.0-11.0) % Eos % (Auto) (1.0-6.0) % Baso % (Auto) (0.0-1.0) % Lymph # (Auto) (1.10-4.50) K/mm3 [place] # (Auto) (0.10-0.90) K/mm3 Eos # (Auto) (0.02-0.50) K/mm3 Baso # (Auto) (0.00-0.10) K/mm3 Abs Immat Gran (auto) (0.00-0.00) K/mm3 Absolute Neuts (auto) (1.70-7.20) K/mm3 Absolute Nucleated RBC (0.00-0.00) K/mm3 Nucleated RBC % (0-0.0) % PT (9.50-12.1) Seconds INR Sodium (136-145) mmol/L Potassium (3.5-5.1) mmol/L Chloride (98-108) mmol/L Carbon Dioxide (21-32) mmol/L Anion Gap (4-12) mmol/L BUN (7-18) mg/dL Creatinine (0.55-1.02) mg/dL Estim Creat Clear Calc ml/min Estimated GFR (59 - ) Glucose (70-99) mg/dL POC Capillary Glucose 346 H 351 H (65-105) mg/dl Calculated Osmolality (285-295) mOsm/kg Lactic Acid (0.4-2.0) mmol/L Calcium (8.5-10.1) mg/dL Magnesium (1.8-2.4) mg/dL Total Bilirubin (0.00-1.00) mg/dL Direct Bilirubin (0-0.2) mg/dL AST (15-37) U/L ALT (14-59) U/L Alkaline Phosphatase (46-116) U/L Ammonia (11-32) umol/L Total Creatine Kinase (26-192) U/L Troponin I (0.00-60.4) ng/L NT-Pro-B Natriuret Pep (0-125) pg/mL Total Protein (6.4-8.2) g/dL Albumin (3.4-5.0) g/dL Lipase (16-77) U/L TSH (0.36-3.74) uIU/mL Urine Color Light yellow (Yellow) Urine Appearance Clear (Clear) Urine pH 6.0 (5.0-8.0) Ur Specific [place] 1.015 (1.010-1.020) Urine Protein Negative (Negative) Urine Glucose (UA) Negative (Negative) Urine Ketones Negative (Negative) Ur Blood (Man) Negative (Negative) Urine Nitrate Negative (Negative) Urine Bilirubin Negative (Negative) Urine Urobilinogen 0.2 (0.2-1.0) mg/dL Leukocyte Esterase Rfl Negative (Negative) СВЕТЛАНА/UL Urine Opiates Screen Negative (Negative) Urine Methadone Screen Negative (Negative) Ur Barbiturates Screen Negative (Negative) Ur Phencyclidine Scrn Negative (Negative) Ur Amphetamine Screen Negative (Negative) U Benzodiazepines Scrn Negative (Negative) Urine Cocaine Screen Negative (Negative) U Cannabinoids Screen Negative (Negative) Influenza A (RT-PCR) (Negative) Influenza B (RT-PCR) (Negative) RSV (RT-PCR) (Negative) SARS-CoV-2 RNA (RT-PCR) (Negative) 09/24/24 Range/Units 08:50 WBC (4.8-10.8) K/mm3 RBC (4.20-5.40) M/mm3 Hgb (12.0-15.0) g/dL Hct (35.0-49.0) % MCV (78.0-102.0) fL MCH (27.0-31.0) pg MCHC (32-36) g/dL RDW (11.6-14.4) % Plt Count (150-420) K/mm3 MPV (9.2-11.8) fl Immature Gran % (Auto) (0.0-0.0) % Neut % (Auto) (50.0-70.0) % Lymph % (Auto) (18.0-42.0) % [place] % (Auto) (2.0-11.0) % Eos % (Auto) (1.0-6.0) % Baso % (Auto) (0.0-1.0) % Lymph # (Auto) (1.10-4.50) K/mm3 [place] # (Auto) (0.10-0.90) K/mm3 Eos # (Auto) (0.02-0.50) K/mm3 Baso # (Auto) (0.00-0.10) K/mm3 Abs Immat Gran (auto) (0.00-0.00) K/mm3 Absolute Neuts (auto) (1.70-7.20) K/mm3 Absolute Nucleated RBC (0.00-0.00) K/mm3 Nucleated RBC % (0-0.0) % PT (9.50-12.1) Seconds INR Sodium (136-145) mmol/L Potassium (3.5-5.1) mmol/L Chloride (98-108) mmol/L Carbon Dioxide (21-32) mmol/L Anion Gap (4-12) mmol/L BUN (7-18) mg/dL Creatinine (0.55-1.02) mg/dL Estim Creat Clear Calc ml/min Estimated GFR (59 - ) Glucose (70-99) mg/dL POC Capillary Glucose (65-105) mg/dl Calculated Osmolality (285-295) mOsm/kg Lactic Acid 3.1 H (0.4-2.0) mmol/L Calcium (8.5-10.1) mg/dL Magnesium (1.8-2.4) mg/dL Total Bilirubin (0.00-1.00) mg/dL Direct Bilirubin (0-0.2) mg/dL AST (15-37) U/L ALT (14-59) U/L Alkaline Phosphatase (46-116) U/L Ammonia (11-32) umol/L Total Creatine Kinase (26-192) U/L Troponin I (0.00-60.4) ng/L NT-Pro-B Natriuret Pep (0-125) pg/mL Total Protein (6.4-8.2) g/dL Albumin (3.4-5.0) g/dL Lipase (16-77) U/L TSH (0.36-3.74) uIU/mL Urine Color (Yellow) Urine Appearance (Clear) Urine pH (5.0-8.0) Ur Specific [place] (1.010-1.020) Urine Protein (Negative) Urine Glucose (UA) (Negative) Urine Ketones (Negative) Ur Blood (Man) (Negative) Urine Nitrate (Negative) Urine Bilirubin (Negative) Urine Urobilinogen (0.2-1.0) mg/dL Leukocyte Esterase Rfl (Negative) СВЕТЛАНА/UL Urine Opiates Screen (Negative) Urine Methadone Screen (Negative) Ur Barbiturates Screen (Negative) Ur Phencyclidine Scrn (Negative) Ur Amphetamine Screen (Negative) U Benzodiazepines Scrn (Negative) Urine Cocaine Screen (Negative) U Cannabinoids Screen (Negative) Influenza A (RT-PCR) (Negative) Influenza B (RT-PCR) (Negative) RSV (RT-PCR) (Negative) SARS-CoV-2 RNA (RT-PCR) (Negative) <Wilian Wong MD - Last Filed: 09/24/24 03:28> Lab Results 09/24/24 09/24/24 09/24/24 Range/Units 03:15 03:24 03:25 WBC 6.6 (4.8-10.8) K/mm3 RBC 4.48 (4.20-5.40) M/mm3 Hgb 14.2 (12.0-15.0) g/dL Hct 40.6 (35.0-49.0) % MCV 90.6 (78.0-102.0) fL MCH 31.7 H (27.0-31.0) pg MCHC 35.0 (32-36) g/dL RDW 14.3 (11.6-14.4) % Plt Count 94 L (150-420) K/mm3 MPV 12.3 H (9.2-11.8) fl Immature Gran % (Auto) 0.5 H (0.0-0.0) % Neut % (Auto) 57.7 (50.0-70.0) % Lymph % (Auto) 21.8 (18.0-42.0) % [place] % (Auto) 12.5 H (2.0-11.0) % Eos % (Auto) 6.9 H (1.0-6.0) % Baso % (Auto) 0.6 (0.0-1.0) % Lymph # (Auto) 1.45 (1.10-4.50) K/mm3 [place] # (Auto) 0.83 (0.10-0.90) K/mm3 Eos # (Auto) 0.46 (0.02-0.50) K/mm3 Baso # (Auto) 0.04 (0.00-0.10) K/mm3 Abs Immat Gran (auto) 0.03 H (0.00-0.00) K/mm3 Absolute Neuts (auto) 3.83 (1.70-7.20) K/mm3 Absolute Nucleated RBC 0.00 (0.00-0.00) K/mm3 Nucleated RBC % 0.0 (0-0.0) % PT 12.2 H (9.50-12.1) Seconds INR 1.1 Sodium 134 L (136-145) mmol/L Potassium 3.3 L (3.5-5.1) mmol/L Chloride 94 L (98-108) mmol/L Carbon Dioxide 28 (21-32) mmol/L Anion Gap 12 (4-12) mmol/L BUN 62 H (7-18) mg/dL Creatinine 3.32 H (0.55-1.02) mg/dL Estim Creat Clear Calc 21 ml/min Estimated GFR 14 L (59 - ) Glucose 325 H (70-99) mg/dL POC Capillary Glucose 330 H (65-105) mg/dl Calculated Osmolality 308 H (285-295) mOsm/kg Lactic Acid 4.5 H (0.4-2.0) mmol/L Calcium 10.4 H (8.5-10.1) mg/dL Magnesium 2.0 (1.8-2.4) mg/dL Total Bilirubin 3.2 H (0.00-1.00) mg/dL Direct Bilirubin 1.0 H (0-0.2) mg/dL AST 37 (15-37) U/L ALT 21 (14-59) U/L Alkaline Phosphatase 117 H (46-116) U/L Ammonia 154 H (11-32) umol/L Total Creatine Kinase 503 H (26-192) U/L Troponin I 37.9 (0.00-60.4) ng/L NT-Pro-B Natriuret Pep 172 H (0-125) pg/mL Total Protein 6.9 (6.4-8.2) g/dL Albumin 3.1 L (3.4-5.0) g/dL Lipase 132 H (16-77) U/L TSH 2.86 (0.36-3.74) uIU/mL Urine Color (Yellow) Urine Appearance (Clear) Urine pH (5.0-8.0) Ur Specific [place] (1.010-1.020) Urine Protein (Negative) Urine Glucose (UA) (Negative) Urine Ketones (Negative) Ur Blood (Man) (Negative) Urine Nitrate (Negative) Urine Bilirubin (Negative) Urine Urobilinogen (0.2-1.0) mg/dL Leukocyte Esterase Rfl (Negative) СВЕТЛАНА/UL Urine Opiates Screen (Negative) Urine Methadone Screen (Negative) Ur Barbiturates Screen (Negative) Ur Phencyclidine Scrn (Negative) Ur Amphetamine Screen (Negative) U Benzodiazepines Scrn (Negative) Urine Cocaine Screen (Negative) U Cannabinoids Screen (Negative) Influenza A (RT-PCR) Negative (Negative) Influenza B (RT-PCR) Negative (Negative) RSV (RT-PCR) Negative (Negative) SARS-CoV-2 RNA (RT-PCR) Negative (Negative) 09/24/24 09/24/24 09/24/24 Range/Units 03:37 05:31 06:59 WBC (4.8-10.8) K/mm3 RBC (4.20-5.40) M/mm3 Hgb (12.0-15.0) g/dL Hct (35.0-49.0) % MCV (78.0-102.0) fL MCH (27.0-31.0) pg MCHC (32-36) g/dL RDW (11.6-14.4) % Plt Count (150-420) K/mm3 MPV (9.2-11.8) fl Immature Gran % (Auto) (0.0-0.0) % Neut % (Auto) (50.0-70.0) % Lymph % (Auto) (18.0-42.0) % [place] % (Auto) (2.0-11.0) % Eos % (Auto) (1.0-6.0) % Baso % (Auto) (0.0-1.0) % Lymph # (Auto) (1.10-4.50) K/mm3 [place] # (Auto) (0.10-0.90) K/mm3 Eos # (Auto) (0.02-0.50) K/mm3 Baso # (Auto) (0.00-0.10) K/mm3 Abs Immat Gran (auto) (0.00-0.00) K/mm3 Absolute Neuts (auto) (1.70-7.20) K/mm3 Absolute Nucleated RBC (0.00-0.00) K/mm3 Nucleated RBC % (0-0.0) % PT (9.50-12.1) Seconds INR Sodium (136-145) mmol/L Potassium (3.5-5.1) mmol/L Chloride (98-108) mmol/L Carbon Dioxide (21-32) mmol/L Anion Gap (4-12) mmol/L BUN (7-18) mg/dL Creatinine (0.55-1.02) mg/dL Estim Creat Clear Calc ml/min Estimated GFR (59 - ) Glucose (70-99) mg/dL POC Capillary Glucose 346 H 351 H (65-105) mg/dl Calculated Osmolality (285-295) mOsm/kg Lactic Acid (0.4-2.0) mmol/L Calcium (8.5-10.1) mg/dL Magnesium (1.8-2.4) mg/dL Total Bilirubin (0.00-1.00) mg/dL Direct Bilirubin (0-0.2) mg/dL AST (15-37) U/L ALT (14-59) U/L Alkaline Phosphatase (46-116) U/L Ammonia (11-32) umol/L Total Creatine Kinase (26-192) U/L Troponin I (0.00-60.4) ng/L NT-Pro-B Natriuret Pep (0-125) pg/mL Total Protein (6.4-8.2) g/dL Albumin (3.4-5.0) g/dL Lipase (16-77) U/L TSH (0.36-3.74) uIU/mL Urine Color Light yellow (Yellow) Urine Appearance Clear (Clear) Urine pH 6.0 (5.0-8.0) Ur Specific [place] 1.015 (1.010-1.020) Urine Protein Negative (Negative) Urine Glucose (UA) Negative (Negative) Urine Ketones Negative (Negative) Ur Blood (Man) Negative (Negative) Urine Nitrate Negative (Negative) Urine Bilirubin Negative (Negative) Urine Urobilinogen 0.2 (0.2-1.0) mg/dL Leukocyte Esterase Rfl Negative (Negative) СВЕТЛАНА/UL Urine Opiates Screen Negative (Negative) Urine Methadone Screen Negative (Negative) Ur Barbiturates Screen Negative (Negative) Ur Phencyclidine Scrn Negative (Negative) Ur Amphetamine Screen Negative (Negative) U Benzodiazepines Scrn Negative (Negative) Urine Cocaine Screen Negative (Negative) U Cannabinoids Screen Negative (Negative) Influenza A (RT-PCR) (Negative) Influenza B (RT-PCR) (Negative) RSV (RT-PCR) (Negative) SARS-CoV-2 RNA (RT-PCR) (Negative) 09/24/24 Range/Units 08:50 WBC (4.8-10.8) K/mm3 RBC (4.20-5.40) M/mm3 Hgb (12.0-15.0) g/dL Hct (35.0-49.0) % MCV (78.0-102.0) fL MCH (27.0-31.0) pg MCHC (32-36) g/dL RDW (11.6-14.4) % Plt Count (150-420) K/mm3 MPV (9.2-11.8) fl Immature Gran % (Auto) (0.0-0.0) % Neut % (Auto) (50.0-70.0) % Lymph % (Auto) (18.0-42.0) % [place] % (Auto) (2.0-11.0) % Eos % (Auto) (1.0-6.0) % Baso % (Auto) (0.0-1.0) % Lymph # (Auto) (1.10-4.50) K/mm3 [place] # (Auto) (0.10-0.90) K/mm3 Eos # (Auto) (0.02-0.50) K/mm3 Baso # (Auto) (0.00-0.10) K/mm3 Abs Immat Gran (auto) (0.00-0.00) K/mm3 Absolute Neuts (auto) (1.70-7.20) K/mm3 Absolute Nucleated RBC (0.00-0.00) K/mm3 Nucleated RBC % (0-0.0) % PT (9.50-12.1) Seconds INR Sodium (136-145) mmol/L Potassium (3.5-5.1) mmol/L Chloride (98-108) mmol/L Carbon Dioxide (21-32) mmol/L Anion Gap (4-12) mmol/L BUN (7-18) mg/dL Creatinine (0.55-1.02) mg/dL Estim Creat Clear Calc ml/min Estimated GFR (59 - ) Glucose (70-99) mg/dL POC Capillary Glucose (65-105) mg/dl Calculated Osmolality (285-295) mOsm/kg Lactic Acid 3.1 H (0.4-2.0) mmol/L Calcium (8.5-10.1) mg/dL Magnesium (1.8-2.4) mg/dL Total Bilirubin (0.00-1.00) mg/dL Direct Bilirubin (0-0.2) mg/dL AST (15-37) U/L ALT (14-59) U/L Alkaline Phosphatase (46-116) U/L Ammonia (11-32) umol/L Total Creatine Kinase (26-192) U/L Troponin I (0.00-60.4) ng/L NT-Pro-B Natriuret Pep (0-125) pg/mL Total Protein (6.4-8.2) g/dL Albumin (3.4-5.0) g/dL Lipase (16-77) U/L TSH (0.36-3.74) uIU/mL Urine Color (Yellow) Urine Appearance (Clear) Urine pH (5.0-8.0) Ur Specific [place] (1.010-1.020) Urine Protein (Negative) Urine Glucose (UA) (Negative) Urine Ketones (Negative) Ur Blood (Man) (Negative) Urine Nitrate (Negative) Urine Bilirubin (Negative) Urine Urobilinogen (0.2-1.0) mg/dL Leukocyte Esterase Rfl (Negative) СВЕТЛАНА/UL Urine Opiates Screen (Negative) Urine Methadone Screen (Negative) Ur Barbiturates Screen (Negative) Ur Phencyclidine Scrn (Negative) Ur Amphetamine Screen (Negative) U Benzodiazepines Scrn (Negative) Urine Cocaine Screen (Negative) U Cannabinoids Screen (Negative) Influenza A (RT-PCR) (Negative) Influenza B (RT-PCR) (Negative) RSV (RT-PCR) (Negative) SARS-CoV-2 RNA (RT-PCR) (Negative) <Louie Malone MD - Last Filed: 09/26/24 10:36> ECG Data EKG #1: ECG completion date: 09/24/24 <Wilain Wong MD - Last Filed: 09/24/24 03:28> ECG completion time: 03:12 <Wilian Wong MD - Last Filed: 09/24/24 03:28> Interpretation: normal sinus rhythm. Normal axis. Right bundle-branch block pattern. No ST elevation. This EKG is unchanged compared to a previous EKG done in April of last year. <Wilian Wong MD - Last Filed: 09/24/24 03:28> Discharge Plan Discharge Clinical Impression: Acute hepatic encephalopathy, Cirrhosis of liver, Hyperammonemia, Thrombocytopenia <Wilian Wong MD - Last Filed: 09/24/24 03:28> Patient Disposition: Acute Care Hospital <Wilian Wong MD - Last Filed: 09/24/24 03:28> Condition: Stable <Wilian Wong MD - Last Filed: 09/24/24 03:28> Patient Language: [place] <Wilian Wong MD - Last Filed: 09/24/24 03:28> Prescriptions: No Action ondansetron HCl 4 mg tablet 4 mg PO DAILY PRN (Reason: nausea and vomiting) prochlorperazine maleate 10 mg tablet 10 mg PO DAILY PRN (Reason: nausea) rifaximin 550 mg PO BID Linzess 145 mcg capsule 145 mcg PO DAILY zinc sulfate 50 mg zinc (220 mg) capsule 220 mg PO DAILY thiamine mononitrate (vit B1) 100 mg tablet 100 mg PO DAILY insulin glargine [Lantus U-100 Insulin] 100 unit/mL solution 20 unit subcut QPM spironolactone 100 mg tablet 300 mg PO DAILY gabapentin [Neurontin] 300 mg Capsule 100 mg PO TID PRN (Reason: pain) bumetanide 1 mg Tablet 2 mg PO DAILY insulin lispro [Humalog U-100 Insulin] 100 unit/mL Solution 2 unit subcut DAILY Rx Instructions: WITH PROTEIN DRINK. TAKE WITH MEAL UP TO 150 BLOOD GLUCOSE LEVEL +1 FOR EVERY 50 POINTS lactulose 20 gram/30 mL solution 20 g PO TID pantoprazole 40 mg tablet,delayed release (DR/EC) 40 mg PO DAILY Qty: 30 0RF <Wilian Wong MD - Last Filed: 09/24/24 03:28> Follow-up/Referrals: UNKNOWN,DOCTOR [Non-Staff] - <Wilian Wong MD - Last Filed: 09/24/24 03:28> Time of Disposition: 10:30 <Wilian Wong MD - Last Filed: 09/24/24 03:28> 10:30 <Louie Malone MD - Last Filed: 09/26/24 10:36>
--- NOTE | 2024-09-24 03:12 | ECG_ITS ---
Test Date: 2024-09-24 03:12:33 Measurements Intervals [place] Rate: 63 P: 9 UT: 139 QRS: 22 QRSD: 161 T: -5 QT: 460 QTc: 472 Interpretive Statements SINUS RHYTHM RIGHT BUNDLE BRANCH BLOCK MARKED T-WAVE ABNORMALITY IN ANT/INF LEADS, CONSIDER ANTERIOR ISCHEMIA BASELINE ARTIFACT- I, II, AVR, AVF ABNORMAL ECG Compared to ECG 04/01/2024 10:05:42 T-wave abnormality now present Possible ischemia now present Electronically Signed On 09-24-2024 05:35:38 MOVEMAN by Darrel Archer D.O.
--- NOTE | 2024-09-24 03:16 | PC.NURSE ---
IS AT THE BEDSIDE. DR KOROMA AT THE BEDSIDE
[2024-09-24 03:17] LABS: Glucose Point of Care 330 mg/dl (65-105)
[2024-09-24 03:31] LABS: Alanine Aminotransferase 21 U/L (14-59); Albumin Level 3.1 g/dL (3.4-5.0); Alkaline Phosphatase 117 U/L (46-116); Ammonia 154 umol/L (11-32); Aspartate Amino Transferase 37 U/L (15-37); Bilirubin,Total 3.2 mg/dL (0.00-1.00); Total Protein 6.9 g/dL (6.4-8.2)
[2024-09-24 03:32] LABS: Anion Gap 12 mmol/L (4-12); Blood Urea Nitrogen 62 mg/dL (7-18); Calcium 10.4 mg/dL (8.5-10.1); Carbon Dioxide 28 mmol/L (21-32); Chloride 94 mmol/L (98-108); Estimated CRCL calculation 21 ml/min; Estimated Glomerular Filt Rate 14; Glucose 325 mg/dL (70-99); Osmolality Calculated 308 mOsm/kg (285-295); Potassium 3.3 mmol/L (3.5-5.1); Sodium 134 mmol/L (136-145)
[2024-09-24 03:34] LABS: Basophils Absolute Auto 0.04 K/mm3 (0.00-0.10); Basophils Percent Auto 0.6 % (0.0-1.0); Eosinophils Absolute Auto 0.46 K/mm3 (0.02-0.50); Eosinophils Percent Auto 6.9 % (1.0-6.0); Hematocrit 40.6 % (35.0-49.0); Hemoglobin 14.2 g/dL (12.0-15.0); Immature Granulocyte Absolute 0.03 K/mm3 (0.00-0.00); Immature Granulocyte Percent A 0.5 % (0.0-0.0); Lymphocytes Absolute Auto 1.45 K/mm3 (1.10-4.50); Lymphocytes Percent Auto 21.8 % (18.0-42.0); Mean Corpuscular Hemoglobin 31.7 pg (27.0-31.0); Mean Corpuscular Volume 90.6 fL (78.0-102.0); Mean Platelet Volume 12.3 fl (9.2-11.8); Monocytes Absolute Auto 0.83 K/mm3 (0.10-0.90); Monocytes Percent Auto 12.5 % (2.0-11.0); Neutrophils Absolute Auto 3.83 K/mm3 (1.70-7.20); Neutrophils Percent Auto 57.7 % (50.0-70.0); Platelet Count Result 94 K/mm3 (150-420); Red Blood Count 4.48 M/mm3 (4.20-5.40); Red Cell Distribution Width 14.3 % (11.6-14.4); White Blood Count 6.6 K/mm3 (4.8-10.8)
[2024-09-24 03:38] LABS: INR 1.1; Prothrombin Time 12.2 Seconds (9.50-12.1)
--- NOTE | 2024-09-24 03:38 | PC.NURSE ---
urine sent to lab by straight cath
[2024-09-24 03:44] LABS: Lactic Acid Reflex 4.5 mmol/L (0.4-2.0)
[2024-09-24 03:45] LABS: Appearance Urine Clear (Clear); Bilirubin Urine Negative (Negative); Blood Urine Negative (Negative); Color Urine Light Yellow (Yellow); Glucose Urine UA Negative (Negative); Ketones Urine Negative (Negative); Nitrate Urine Negative (Negative); Protein Urine Negative (Negative); Specific Grav Ur 1.015 (1.010-1.020); Urobilinogen Urine 0.2 mg/dL (0.2-1.0)
--- OUTSIDE RECORDS SUMMARY | 2024-09-24 03:47 | XMS_ITS | Encounter Summary ---
Author Organization [facility] Address [address] [place] [address] Care Team Providers Care Hvac Service Tech Name Role Phone Unavailable Primary Care Provider Unavailabl e Reason for Visit * Reason Onset Date Comments TR on CKD 04/02/2024 Spoke w/Dr. Mueller Stroke/CVA 04/02/2024 Spoke w/Gladys @ Dr. Anthony's exchange Encounter Details Date Type Department Care Team (Late st Contact Info) Description 04/02/2024 Telephone [facility] [address] [place] [address] Marcos Newton MD [address] [place] [id number] TR on CKD (Spoke w/Dr. Mueller); [...]
--- OUTSIDE RECORDS SUMMARY | 2024-09-24 03:47 | XMS_ITS ---
Author Organization [facility] Address [address] [place] [address] Care Team Providers Care Canteen Attendant Name Role Phone Maddy Romano MD Primary Care Provider + [phone] Manas Ibarra MD Unavailable Zion Barton MD Unavailable [phone] Molina Charles MD Unavailable [phone] Inés Lemus RN Unavailable [phone] Karuna Maria OT Unavailable Unavaila Renu Paul NP Unavailable [phone] Eladio Mcrae MD Unavailable [phone] Tamiko Schroeder RN Unavailable [phone] Transplant Episode Liver Candidate [facility] ([place], [place]) - [facility] Center waitlisted on 08/17/2022 Marked as Active on 05/07/2024 Reason: Listed in UNET Liver CoordinatorInés Lemus RN Fax: N/A Email: N/A Scores Score Value Updated Expires Exceptions/Tyrone sons CPRA Not available UNOS MELD 21 08/30/2024 09/29/2024 MELD (Calc) 21 08/27/2024 [place] Organ Diagnosis Organ Primary Contributory Liver Cirrhosis: Metabolic Dysfunction -Associated Steatohepatitis (MASH) Care Team Name Role Phone Fax Email Inés Lemus, TYRA Liver Coordinator [phone] N/A N/A Charito Lambert, DEVONTE Dietitian N/A N/A N/A Anna Ngo, RESTROOMS OR LOUNGES MAID Egg Gatherer N/A N/A N/A Molina Charles MD Referring Physician [phone] N/A Chelsea Barker, TYRA Secondary Coordinator N/A N/A N/A [place] Bear Railcar Carpenter [phone] N/A N/A Faith Lopez Primary Spray Machine Operator N/A N/A N/A Events Pre-Transplant Referred: 10/26/2021 Evaluation began: 11/02/2021 Committee: 08/07/2022 Center waitlisted: 08/17/2022 Appointments (08/24/2024 - 10/22/2024) When With Visit Type Description 08/24/2024 Transplant - Amanda Garner OUTPATIENT VISIT
--- OUTSIDE RECORDS SUMMARY | 2024-09-24 03:47 | XMS_ITS | Encounter Summary ---
Author Organization [facility] Address [address] [place] [address] Phone Care Team Providers Care Mens Locker Room Attendant Name Role Phone Maddy Romano MD Primary Care Provider Astrid Haq NP Unavailable [phone] Manas Ibarra MD Unavailable Zion Barton MD Unavailable Molina Charles MD Unavailable [phone] Inés Lemus RN Unavailable [phone] Karuna Maria OT Unavailable Unavaila Renu Paul NP Unavailable Eladio Mcrae MD Unavailable Tamiko Schroeder RN Unavailable [phone] Briana Poe RN Unavailable [phone] Encounter Details Date Type Department Care Team (Late st Contact Info) Description 10/11/2021 Orders Only [facility] Scanning, Provider Social History Tobacco Use Types Packs/Day Years Used Date Smoking Tobacco: Former Cigarettes Q uit: 2010 Smokeless Tobacco: Never Comments No Sex and Gender Information Value Date Recorded Sex Assigned at Not on file Legal Sex Female 8:22 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 NURSE Gender Identity Female 11/15/2021 2:30 AM CDT [...] documented as of this encounter Care Teams Mens Locker Room Attendant Relationship Specialty Start Date End Date Maddy Romano MD [address] [place] [address] PCP - General 09/28/16 Astrid Haq NP [address] [place] [address] Nurse Practitioner Radiation Oncology 11/05/18 11/07/22 Manas Ibarra MD [address] [place] [address] Referring Physician Thoracic Surgery 11/05/18 Zion Barton MD [address] [place] [address] Radiation Oncologist Radiation Oncology 05/05/19 Molina Charles MD [address] [facility] [address] [place] [address] Referring Physician Transplant Hepatology 12/15/20 Inés Lemus RN [address] [facility] [address] [place] [address] Caul Fat Puller 10/31/21 Karuna Maria OT Occupational Therapist Occupational Therapy 09/20/22 Renu Treviño NP [address] [facility] [address] [place] [address] Nurse Practitioner Radiation Oncology 11/08/22 Eladio Mcrae MD [address] [place], [place] [address] Referring Physician Obstetrics and Gynecology 11/15/22 Tamiko Schroeder RN [address] [place] [address] Caul Fat Puller 04/27/24 Briana Poe RN [address] [facility] [address] [place] [address] SHOP Outpatient Water Carter 04/30/24 05/28/24 documented as of this encounter
--- OUTSIDE RECORDS SUMMARY | 2024-09-24 03:47 | XMS_ITS | Encounter Summary ---
Author Organization [facility] Address [address] [place] [address] Care Team Providers Care Yard Pipe Grader Name Role Phone Maddy Romano MD Primary Care Provider + [phone] Manas Ibarra MD Unavailable Zion Barton MD Unavailable Molina Charles MD Unavailable [phone] Inés Lemus RN Unavailable [phone] Karuna Maria OT Unavailable Unavaila Renu Paul NP Unavailable [phone] Eladio Mcrae MD Unavailable [phone] Tamiko Schroeder RN Unavailable [phone] Briana Poe RN Unavailable [phone] Encounter Details Date Type Department Care Team (Late st Contact Info) Description 05/11/[address] [facility] [address] [place] [address] Ragini Wheeler, TYRA Social History [...] often do you attend chur ch or hindu services? Never 04/30/2024 Do you belong to [...] place to sleep or slept in a fdc (including now)? No 12/31/2022 Housing Stability Vital Sign Answer Terrance e Recorded In the last 12 months, was t here a time when you were not able to pay the mortgage or rent on time? No 04/30/2024 In the past 12 months, how m any times have you moved where you were living? 0 04/30/2024 At any time in the past 12 m [facility], were you homeless or living in a fdc (including now)? No 04/30/2024 Personal Safety Answer Date Recorded Have you ever been in or are you currently in a harmful physical or emotional relationship or is someone making you feel afraid or unsafe? Denies 04/21/2024 Comments No Sex and Gender Information Value Date Recorded Sex Assigned at Not on file Legal Sex Female 8:22 AM HOGSHEAD FILLER Gender Identity Female 11/15/2021 2:30 AM CDT [...] on filedocumented in this encounter Care Teams Yard Pipe Grader Relationship Specialty Start Date End Date Maddy Romano MD [address] [place] [address] PCP - General 09/28/16 Manas Ibarra MD [address] [place], [place] [address] Referring Physician Thoracic Surgery 11/05/18 Zion Barton MD [address] [place] [address] Radiation Oncologist Radiation Oncology 05/05/19 Molina Charles MD [address] [facility] [address] [place] [address] Referring Physician Transplant Hepatology 12/15/20 Inés Lemus, TYRA [address] [email or web address] [address] [place] [address] Fish And Game Warden 10/31/21 Karuna Maria, OT Occupational Therapist Occupational Therapy 09/20/22 Renu Treviño NP [address] [facility] [address] [place] [address] Nurse Practitioner Radiation Oncology 11/08/22 Eladio Mcrae MD [address] [place] [address] Referring Physician Obstetrics and Gynecology 11/15/22 Tamiko Schroeder RN [address] [place] [address] Fish And Game Warden 04/27/24 Briana Poe RN [address] [facility] [[email or web address] [address] [place] [address] SHOP Outpatient Central Office Technician 04/30/24 05/28/24 documented as of this encounter
--- OUTSIDE RECORDS SUMMARY | 2024-09-24 03:47 | XMS_ITS | Encounter Summary ---
Author Organization [facility] Address [address] [place] [address] Phone Care Team Providers Care Nursing Informatics Specialist Name Role Phone Maddy Romano MD Primary Care Provider Astrid Haq NP Unavailable Manas Ibarra MD Unavailable Zion Barton MD Unavailable Molina Charles MD Unavailable [phone] Inés Lemus RN Unavailable [phone] Karuna Maria OT Unavailable Unavaila Renu Paul NP Unavailable Eladio Mcrae MD Unavailable Tamiko Schroeder RN Unavailable [phone] Briana Poe RN Unavailable Encounter Details Date Type Department Care Team (Late st Contact Info) Description 08/11/2021 Orders Only [facility] Scanning, Provider Social History Tobacco Use Types Packs/Day Years Used Date Smoking Tobacco: Former Cigarettes Q uit: 2010 Smokeless Tobacco: Never Comments No Sex and Gender Information Value Date Recorded Sex Assigned at Not on file Legal Sex Female 8:22 AM MEDIA RELATIONS MANAGER Gender Identity Female 11/15/2021 2:30 AM [...] documented as of this encounter Care Teams Nursing Informatics Specialist Relationship Specialty Start Date End Date Maddy Romano MD [address] [place] [address] PCP - General 09/28/16 Astrid Haq NP [address] [place] [address] Nurse Practitioner Radiation Oncology 11/05/18 11/07/22 Manas Ibarra MD [address] [place] [address] Referring Physician Thoracic Surgery 11/05/18 Zion Barton MD [address] [place] [address] Radiation Oncologist Radiation Oncology 05/05/19 Molina Charles MD [address] [facility] [address] [address] [place] [address] Referring Physician Transplant Hepatology 12/15/20 Inés Lemus RN [address] [facility] [address] [place] [address] Production Line Welder 10/31/21 Karuna Maria OT Occupational Therapist Occupational Therapy 09/20/22 Renu Treviño NP [address] [facility] [address] [place] [address] Nurse Practitioner Radiation Oncology 11/08/22 Eladio Mcrae MD [address] [place], [place] [address] Referring Physician Obstetrics and Gynecology 11/15/22 Tamiko Schroeder RN [address] [place] [address] Production Line Welder 04/27/24 Briana Poe RN [address] [facility] [address] [place] [address] SHOP Outpatient Brewery Pumper 04/30/24 05/28/24 documented as of this encounter
--- OUTSIDE RECORDS SUMMARY | 2024-09-24 03:47 | XMS_ITS | Encounter Summary ---
Author Organization [facility] Address [address] [place] [address] Phone Care Team Providers Care Objects Conservator Name Role Phone Maddy Romano MD Primary Care Provider Astrid Haq NP Unavailable [phone] Manas Ibarra MD Unavailable Zion Barton MD Unavailable Molina Charles MD Unavailable [phone] Inés Lemus RN Unavailable [phone] Karuna Maria OT Unavailable Unavaila Renu Paul NP Unavailable [phone] Eladio Mcrae MD Unavailable [phone] Tamiko Schroeder RN Unavailable [phone] Briaan Poe RN Unavailable Encounter Details Date Type Department Care Team (Latest Contact Info) Description 08/18/2020 Orders Only [facility] Scanning, Provider Social History Tobacco Use Types Packs/Day Years Used Date Smoking Tobacco: Former Cigarettes Q uit: 2010 Smokeless Tobacco: Never Comments No Sex and Gender Information Value Date Recorded Sex Assigned at Not on file Legal Sex Female 8:22 AM BROACH OPERATOR Gender Identity Female 11/15/2021 2:30 AM CDT [...] documented as of this encounter Care Teams Objects Conservator Relationship Specialty Start Date End Date Maddy Romano MD [address] [place] [address] PCP - General 09/28/16 Astrid Haq NP [address] [place] [address] Nurse Practitioner Radiation Oncology 11/05/18 11/07/22 Manas Ibarra MD [address] [place] [address] Referring Physician Thoracic Surgery 11/05/18 Zion Barton MD [address] [place] [address] Radiation Oncologist Radiation Oncology 05/05/19 Molina Charles MD [address] [place] [address] [address] [place] [address] Referring Physician Transplant Hepatology 12/15/20 Inés Lemus RN [address] [facility] [address] [place] [address] Manager Managed Backup Services 10/31/21 Karuna Maria, OT Occupational Therapist Occupational Therapy 09/20/22 Renu Treviño NP [address] [facility] [address] [place] [address] Nurse Practitioner Radiation Oncology 11/08/22 Eladio Mcrae MD [address] [place] [address] Referring Physician Obstetrics and Gynecology 11/15/22 Tamiko Schroeder RN [address] [place] [address] Manager Managed Backup Services 04/27/24 Briana Poe RN [address] [facility] [address] [place] [address] SHOP Outpatient Independent Living Specialist 04/30/24 05/28/24 documented as of this encounter
--- OUTSIDE RECORDS SUMMARY | 2024-09-24 03:47 | XMS_ITS | Clinical Summary ---
Author Organization [facility] Address [address] [place] [address] Care Team Providers Care Curator Name Role Phone Maddy Romano MD Primary Care Provider [phone] Manas Ibarra MD Unavailable iZon Barton MD Unavailable [phone] Molina Charles MD Unavailable [phone] Inés Lemus RN Unavailable [phone] Karuna Maria OT Unavailable Unavaila Renu Paul NP Unavailable [phone] Eladio Mcrae MD Unavailable [phone] Tamiko Schroeder RN Unavailable [phone] Allergies Active Allergy Reactions Criticality Noted [...] stage 3a chronic kidney disease, unspecified whether fdc insulin use (HCC) Will use 1 sensor every 10 days. 1 box = 3 sensors. 3 each 5 Active blood-glucose transmitter (Dexcom G6 Transmitter) deviceIndications :Type 2 diabetes mellitus without complication, unspecified whether fdc insulin use (HCC) Will use 1 transmitter every 90 days 1 each 1 Active spironolactone (ALDACTONE) 100 mg tablet Take 3 tablets (300 mg total) by mouth daily 90 tablet 11 025 2025 Active pen needle, diabetic (BD Ultra-Fine Mini Pen Needle) 31 gauge x 3/16 needleIndications :Type 2 diabetes mellitus without complication, unspecified whether fdc insulin use (HCC) USE TO INJECT INSULIN SIX TIMES PER DAY 200 each 11 025 Active pen needle, diabetic 31 gauge x 3/16 needleIndications :Type 2 diabetes mellitus without complication, unspecified whether fdc insulin use (HCC) Use to inject insulin [...] 10/10/2022 Assessment & Plan (10/12/2022 12:20 PM INCIDENT RESPONSE LEAD): Episode of atrial flutter overnight with RVR up to 140s. Patient asymptomatic, normotensive. IV metoprolol X2 given to achieve rate control. [id number] vasc score of 3. TTE from 09/03 without valvular abnormalities. No new episodes today. Lytes within normal limits. - Continue personnel monitor - Continue home dose of metoprolol 25mg BID - Given that patient might be listed for transplant, hepatology would prefer to avoid apixaban. Lovenox is not ideal given her platelet count less than 100. Her INR is too high to consider warfarin. Anemia 10/05/2022 Assessment & Plan (10/11/2022 12:28 PM INCIDENT RESPONSE LEAD): - Hgb has down trended from 8 [...] 10/05/2022 Assessment & Plan (10/11/2022 12:45 PM INCIDENT RESPONSE LEAD): -Continue home dose of metoprolol 25mg BID Hepatic encephalopathy 07/31/2022 Assessment & Plan (03/06/2023 5:49 PM CDT): Good control on current medical management. No changes indicated. Assessment & Plan (08/03/2022 1:05 PM INCIDENT RESPONSE LEAD): Pt with hx of VELASCO cirrhosis presenting with progressively worsening mental status over past several weeks. On initial examination patient was AAOx1, on subsequent exam she is now AAOx2 with appropriate responses. NH3 75. Unfortunately no safe area for bedside diagnostic paracentesis. Slurred speech and concerns for swallowing. WAX COATING MACHINE TENDER completed swallow study and normal. Head CT: No acute intracranial abnormality. -Awaiting Liver MRI -Increased Lactulose to 4x daily (only 1 stool on 08/02) - Rifaximin and Lactulose (goal 3-5 bowel movements) - Fall precautions. - PT/OT: Home with assistance. Assessment & Plan (08/02/2022 2:34 PM INCIDENT RESPONSE LEAD): Pt with hx of VELASCO cirrhosis presenting with progressively worsening mental status over past several weeks. On initial examination patient was AAOx1, on subsequent exam she is now AAOx2 with appropriate responses. NH3 75. Unfortunately no safe area for bedside diagnostic paracentesis. Slurred speech and concerns for swallowing. WAX COATING MACHINE TENDER completed swallow study and normal. Head CT: No acute intracranial abnormality. - Rifaximin and Lactulose (goal 3-5 bowel movements) - Fall precautions. - PT/OT: Home with assistance. - WAX COATING MACHINE TENDER completed bedside swallow and Normal Assessment & Plan (08/01/2022 3:28 PM INCIDENT RESPONSE LEAD): Pt with hx of VELASCO cirrhosis presenting [...] concerns for swallowing. - Fall precautions. - WAX COATING MACHINE TENDER/PT/OT Consults. Assessment & Plan (08/01/2022 4:16 AM INCIDENT RESPONSE LEAD): Pt with hx of VELASCO cirrhosis presenting [...] (10/22/2022): Added automatically from request for surgery [id number] Volume overload 10/06/2022 05/29/2024 Assessment & Plan (10/10/2022 1:09 PM INCIDENT RESPONSE LEAD): In the setting of VELASCO cirrhosis. Diuretics [...] (08/22/2022): Added automatically from request for surgery [id number] Portal vein thrombosis 08/01/202208/22 Assessment & Plan (08/03/2022 1:09 PM INCIDENT RESPONSE LEAD): -Apixaban 2.5mg BID Assessment & Plan (08/02/2022 2:39 PM INCIDENT RESPONSE LEAD): -Apixaban 2.5mg BID Assessment & Plan (08/01/2022 3:27 PM INCIDENT RESPONSE LEAD): -Apixaban 2.5mg BID Assessment & Plan (08/01/2022 4:17 AM INCIDENT RESPONSE LEAD): Continue home apixaban VELASCO (nonalcoholic steatohepatitis) 11/02/2021 07/15/2024 Abnormal mammogram of right breast 11/02/2020 08/22/2022 Preop cardiovascular exam 09/23/2019 Overview (09/23/2019): Added automatically from request for surgery [id number] Colon cancer screening 04/21/201908/22 Overview (04/21/2019): Added automatically from request for surgery [id number] Esophageal varices without bleeding (CMS/HCC) 04/21/20 19 08/22/2022 Overview (04/21/2019): Added automatically from request for surgery [id number] 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 - Her blood sugars were initially on the lower side (90-100) in setting of poor po intake and TR. Continue SSI only for now and will uptitrate as needed. - Continue Lantus 10u/daily + lispro 4TID Assessment & Plan (08/03/2022 1:09 PM INCIDENT RESPONSE LEAD): Home regimen of toujeo 42 units + SSI. -Lantus, Lispro TID AC and SSI -No Juice Diet -Consistent Carb+ 2gm NA diet. -CTM BGL Assessment & Plan (08/02/2022 2:38 PM INCIDENT RESPONSE LEAD): Home regimen of toujeo 42 units + SSI. -Lantus, Lispro TID AC and SSI -No Juice Diet -Consistent Carb+ 2gm NA diet. -CTM BGL Assessment & Plan (08/01/2022 3:26 PM INCIDENT RESPONSE LEAD): Home regimen of toujeo 42 units + SSI. Given TR and decreased PO intake, insulin regimen reduced to Lantus 20units. - Continue on 2g Na + DM2 diet - CTM BGL Assessment & Plan (08/01/2022 4:17 AM INCIDENT RESPONSE LEAD): Home regimen of toujeo 42 units + SSI Given TR and decreased PO intake, will dose reduce insulin regimen, 20units + SSIand uptitrate as needed Continue on 2g Na + DM2 diet Encounters Date Type Department Care Team Description 09/15/2024 Documentation [facility] Gastroenterology [address] [facility] [address]th [place] [address] [place] [address] Alexandra Issa RN 09/14/2024 Telephone [facility] and [facility] Transplant Liver [address] [facility] [address] Mailstop [phone] [place] [address] Inés Lemus, RN 09/07/2024 Orders Only [facility] Scanning, Provider 08/30/2024 Telephone [facility] and [facility] Transplant Liver [address] [facility] [address] Mailstop [phone] [place] [address] Inés Lemus, RN 08/28/2024 Documentation [facility] Gastroenterology [address] [facility] 12th [place] [address] [place] [address] Alexandra Issa, TYRA 08/27/2024 1:40 PM INCIDENT RESPONSE LEAD Lab [facility] [address] [place] [address] VELASCO (nonalcoholic steatohepatitis) 08/25/2024 Documentation [facility] Gastroenterology [facility] 12th [place] [address] [place] [address] Alexandra Issa RN 08/25/2024 Telephone [facility] and [facility] Transplant Liver [address] [facility] [address] Mailstop [phone] [place] [address] Inés Lemus, TYRA 08/25/2024 Documentation [facility] Gastroenterology [address] [facility] 12th [place] [address] [place] [address] Alexandra Issa, TYRA 08/24/2024 10:00 AM INCIDENT RESPONSE LEAD - 08/24/2024 11:59 PM INCIDENT RESPONSE LEAD Hospital Encounter [address] [address] ESRD (end stage renal disease) (CMS/HCC) (HCC) Discharge Disposition: Discharge to home or self care 08/24/2024 9:00 AM INCIDENT RESPONSE LEAD Social Work [facility] [place] [address] [facility], 8th Floor, [place] [address] Ragini Garner LCSW 08/24/2024 Orders Only [facility] Scanning, Provider 08/17/2024 Telephone [facility] Transplant Liver [address] [facility] [address] Mailstop [phone] [place] [address] Inés Lemus, TYRA 08/07/2024 Telephone [facility] and [facility] Transplant Liver [address] [facility] [address] Mailstop [phone] [place] [address] Inés Lemus, TYRA 08/06/2024 4:35 PM INCIDENT RESPONSE LEAD Lab [facility] [address] [place] [address] Hepatic encephalopathy (HCC); Type 2 diabetes mellitus with stage 4 chronic kidney disease, with long-term current use of insulin (HCC); Hepatic cirrhosis, unspecified hepatic cirrhosis type, unspecified whether ascites present (HCC); Dysuria 08/06/2024 3:45 PM INCIDENT RESPONSE LEAD Office Visit [facility] Gastroenterology [address] [place] [address] Medical Office [address], [address] [place] [address] Taiwo Vázquez MD Hepatic cirrhosis, unspecified hepatic [...] [facility] Scanning, Provider 07/31/2024 Documentation [facility] Gastroenterology [address] [facility] 12th [place] [address] [place] [address] Alexandra Issa RN 07/31/2024 Documentation [facility] Transplant Liver [address] [facility] [address] Mailstop [phone] [place], [place] [id number] Chelsea Barker RN 07/31/2024 Orders Only [facility] Gastroenterology [address] [facility] 12th [place] [address] [place] [address] Alexandra Issa, TYRA 07/30/2024 3:45 PM INCIDENT RESPONSE LEAD Lab [facility] [address] [place] [address] ESRD (end stage renal disease) (CMS/HCC) (HCC); VELASCO (nonalcoholic steatohepatitis) 07/24/2024 Telephone [facility] Transplant Liver [address] [facility] [address] Mailstop [phone] [place] [address] Inés Lemus, TYRA 07/24/2024 Telephone [facility] Transplant Liver [address] [facility] [address] Mailstop [phone] [place] [address] Inés Lemus, TYRA 07/22/2024 Documentation [facility] Gastroenterology [address] [place] [address] [place] [address] [place] [address] Alexandra Issa RN 07/20/2024 10:00 AM INCIDENT RESPONSE LEAD - 07/20/2024 11:59 PM [facility] Hospital [address] [address] ESRD (end stage renal disease) (CMS/HCC) (HCC) Discharge Disposition: Discharge to home or self care 07/20/2024 Orders Only [facility] GASTROENTEROLOGY Scanning, Provider 07/17/2024 Telephone [facility] Specialty Services [address] [place] [address] Mayra Machuca RN 07/17/2024 Telephone [facility] Transplant Liver [address] [facility] [address] Mailstop [phone] [place] [address] Inés Lemus, TYRA 07/15/2024 10:30 AM INCIDENT RESPONSE LEAD Office Visit [facility] Gasteroenterology [facility] 12th [place] [address] [place] [id number] Britany Toribio MD Cirrhosis of liver without ascites, unspecified hepatic cirrhosis type (HCC) (Primary Dx) 07/08/2024 Documentation [facility] Gastroenterology [address] [facility] 12th [place] [address] [place] [address] Alexandra Issa RN 07/03/2024 Telephone [facility] and [facility] Transplant Liver [address] Mailstop [phone] [place] [address] Inés Lemus RN 07/02/2024 Documentation [facility] Gastroenterology [address] [place] [address] 12th [place] [address] [place] [address] Alexandra Issa RN 06/30/2024 2:20 PM INCIDENT RESPONSE LEAD Lab [facility] [address] [place] [address] VELASCO (nonalcoholic steatohepatitis) 06/30/2024 11:10 AM INCIDENT RESPONSE LEAD Office Visit [facility] Nephrology [address] [place] [address] 5th [place] [address] [place] [address] Stage 3b chronic kidney disease (HCC) (Primary Dx); Hypertension, unspecified type; Anemia in stage 3b chronic kidney disease (HCC) from Last 3 Months Immunizations Name Administration Dates Next Due Hep B Vaccine 01/22/2024,12/18/2023 Influenza, Quadrivalent, Spl it, Intramuscular 05/01/2019,05/26/2015 Influenza, Quadrivalent, Spl it, Preservative Free, Intramuscular 07/02/2023,04/29/2020,05/01/2019,05/09,05/08/2018,05/23/2017,05/17/2016 Influenza, Trivalent, IM (MDV) 04/28/2021,2013 Influenza, Trivalent, Preser vative Free, Intramuscular 05/29/2013 Kiwi (J&J) SARS-CoV-2 Vaccination 10/17/2020 Pneumococcal Conjugate PCV [...] Tobacco: Never Tobacco Cessation:Counseling Given: Not Answered [facility] Utilities Answer Date Recorded In the past 12 months has [employer], gas, oil, or water [employer] threatened to shut off services in your [...] often do you attend chur ch or lutheran services? Never 08/24/2024 Do you belong to [...] place to sleep or slept in a skilled nursing (including now)? No 12/31/2022 Housing Stability Vital Sign Answer Terrance e Recorded In the last 12 months, was t here a time when you were not able to pay the mortgage or rent on time? No 08/24/2024 In the past 12 months, how m any times have you moved where you were living? 0 08/24/2024 At any time in the past 12 m [facility], were you homeless or living in a skilled nursing (including now)? No 08/24/2024 Personal Safety Answer Date Recorded Have you ever been in or are you currently in a harmful physical or emotional relationship or is someone making you feel afraid or unsafe? 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 file Obstetrics History Last Filed Vital Signs Vital Sign Reading Time Taken Comments Blood Pressure 122/66 08/06/2024 3:48 PM INCIDENT RESPONSE LEAD Pulse 59 08/06/2024 3:48 PM INCIDENT RESPONSE LEAD Temperature 36.5 C (97.7 F) 08/06/2024 3:48 PM INCIDENT RESPONSE LEAD Respiratory Rate 18 08/06/2024 3:48 PM INCIDENT RESPONSE LEAD Oxygen Saturation 100% 08/06/2024 3:48 PM INCIDENT RESPONSE LEAD Inhaled Oxygen Concentration - - Weight 117 kg (258 lb) 08/06/2024 3:48 PM INCIDENT RESPONSE LEAD Height 170.2 cm (5' 7.01 ) 08/06/2024 3:48 PM CS T Body Mass Index 40.4 08/06/2024 3:48 PM INCIDENT RESPONSE LEAD Plan of Treatment Scheduled Procedures Name Priority [...] LABS 09/07/2024 EGFR Routine 08/27/2024 1:35 PM INCIDENT RESPONSE LEAD VELASCO (nonalcoholic steatohepatitis) COMPREHENSIVE METABOLIC PANEL Routine 08/27/2024 1:35 PM INCIDENT RESPONSE LEAD VELASCO (nonalcoholic steatohepatitis) PROTIME-INR Routine 08/27/2024 1:35 PM INCIDENT RESPONSE LEAD VELASCO (nonalcoholic steatohepatitis) HLA ANTIBODY SCREEN BY PRA OR SAB PER SCHEDULE (CLASS I AND CLASS II) Routine 08/24/2024 10:00 AM INCIDENT RESPONSE LEAD ESRD (end stage renal disease) (CMS/HCC) (HCC) SCAN - LABS 08/24/2024 URINALYSIS, MICROSCOPIC ONLY Routine 08/06/2024 5:12 PM INCIDENT RESPONSE LEAD Dysuria URINALYSIS AND REFLEX TO MICROSCOPIC AND CULTURE Routine 08/06/2024 5:12 PM INCIDENT RESPONSE LEAD Dysuria EGFR Routine 08/06/2024 5:04 PM INCIDENT RESPONSE LEAD Hepatic cirrhosis, unspecified hepatic cirrhosis type, unspecified whether ascites present (HCC) Hepatic encephalopathy (HCC) DIFFERENTIAL AUTO Routine 08/06/2024 5:0 4 PM INCIDENT RESPONSE LEAD Hepatic cirrhosis, unspecified hepatic cirrhosis type, unspecified whether ascites present (HCC) Hepatic encephalopathy (HCC) CBC WITH AUTO DIFFERENTIAL Routine 08/06/2024 5:04 PM INCIDENT RESPONSE LEAD Hepatic cirrhosis, unspecified hepatic cirrhosis type, unspecified whether ascites present (HCC) Hepatic encephalopathy (HCC) COMPREHENSIVE METABOLIC PANEL Routine 08/06/2024 5:04 PM INCIDENT RESPONSE LEAD Hepatic cirrhosis, unspecified hepatic cirrhosis type, unspecified whether ascites present (HCC) Hepatic encephalopathy (HCC) BILIRUBIN, DIRECT Routine 08/06/2024 5:0 4 PM INCIDENT RESPONSE LEAD Hepatic cirrhosis, unspecified hepatic cirrhosis type, unspecified whether ascites present (HCC) Hepatic encephalopathy (HCC) PROTIME-INR Routine 08/06/2024 5:04 PM INCIDENT RESPONSE LEAD Hepatic cirrhosis, unspecified hepatic cirrhosis type, unspecified whether ascites present (HCC) Hepatic encephalopathy (HCC) [id number], TUMOR MARKER Routine 08/06/2024 5:04 PM INCIDENT RESPONSE LEAD Hepatic cirrhosis, unspecified hepatic cirrhosis type, unspecified whether ascites present (HCC) Hepatic encephalopathy (HCC) HEMOGLOBIN A1C Routine 08/06/2024 5:04 PM INCIDENT RESPONSE LEAD Hepatic encephalopathy (HCC) Type 2 diabetes mellitus with stage 4 chronic kidney disease, with long-term current use of insulin (HCC) BLOOD CULTURE Routine 08/06/2024 5:04 PM INCIDENT RESPONSE LEAD Hepatic encephalopathy (HCC) SCAN - LABS 08/03/2024 EGFR Routine 07/30/2024 1:25 PM INCIDENT RESPONSE LEAD VELASCO (nonalcoholic steatohepatitis) COMPREHENSIVE METABOLIC PANEL Routine 07/30/2024 1:25 PM INCIDENT RESPONSE LEAD VELASCO (nonalcoholic steatohepatitis) DIFFERENTIAL AUTO Routine 07/30/2024 1:1 0 PM INCIDENT RESPONSE LEAD VELASCO (nonalcoholic steatohepatitis) CBC WITH AUTO DIFFERENTIAL Routine 07/30/2024 1:10 PM INCIDENT RESPONSE LEAD VELASCO (nonalcoholic steatohepatitis) PROTIME-INR Routine 07/30/2024 1:10 PM INCIDENT RESPONSE LEAD VELASCO (nonalcoholic steatohepatitis) HLA ANTIBODY SCREEN - SAB (CLASS I AND CLASS II) Routine 07/20/2024 10:00 AM INCIDENT RESPONSE LEAD ESRD (end stage renal disease) (CMS/HCC) (HCC) HLA ANTIBODY SCREEN BY PRA OR SAB PER SCHEDULE (CLASS I AND CLASS II) Routine 07/20/2024 10:00 AM INCIDENT RESPONSE LEAD ESRD (end stage renal disease) (CMS/HCC) (HCC) SCAN - LABS 07/20/2024 EGFR Routine 06/30/2024 12:36 PM INCIDENT RESPONSE LEAD VELASCO (nonalcoholic steatohepatitis) DIFFERENTIAL AUTO Routine 06/30/2024 12: 36 PM INCIDENT RESPONSE LEAD VELASCO (nonalcoholic steatohepatitis) CBC WITH AUTO DIFFERENTIAL Routine 06/30/2024 12:36 PM INCIDENT RESPONSE LEAD VELASCO (nonalcoholic steatohepatitis) PROTIME-INR Routine 06/30/2024 12:36 PM INCIDENT RESPONSE LEAD VELASCO (nonalcoholic steatohepatitis) COMPREHENSIVE METABOLIC PANEL Routine 06/30/2024 12:36 PM INCIDENT RESPONSE LEAD VELASCO (nonalcoholic steatohepatitis) PAP AND HIGH RISK HPV, REFLEX TO GENOTYPING Routine 04/28/2024 10:41 AM CDT SCREENING MAMMOGRAM BILATERAL W PAL IP Routine 04/27/2024 1:55 PM CDT LIPID PANEL Routine 04/22/2024 12:58 AM CDT HEPATITIS C ANTIBODY Routine 06/16/2023 6:09 AM INCIDENT RESPONSE LEAD COLONOSCOPY 05/30/2022 9:28 AM CDT ALBUMIN CREATININE RATIO, URINE Routine 03/01/2021 2:45 PM CDT Type 2 diabetes mellitus without complication, unspecified whether ad terminal makeup operator insulin use (HCC) from Last 3 Months or Most Recently Relevant to Health Maintenance Results * SCAN - LABS (09/07/2024) us Provider Scanning Final Result * (ABNORMAL) eGFR (08/27/2024 1:35 PM INCIDENT RESPONSE LEAD) eGFR 31(L) >=60 mL/min/1. 73 m2 Comment: [...] last reviewed 2021. Blood 08/27/2024 1:35 PM INCIDENT RESPONSE LEAD 08/27/2024 1:59 PM INCIDENT RESPONSE LEAD Taiwo Vázquez MD LAB BLOOD ORDERABLES Fin al Result Performing Organization Address [facility] Co de Phone Number [facility] [employer] [place], [place] [id number] * (ABNORMAL) Protime-INR (08/27/2024 1:35 PM INCIDENT RESPONSE LEAD) PT 14.1(H) 9.7 - 13.0 sec INR 1.30(H) 0.90 - 1.20 [facility] Comment: Interpretive data Oral anticoagulant therapeutic ranges: Venous thromboembolism prophylaxis or treatment: 2.0-3.0 CARDIOLOGY Standard range: 2.0-3.0 High-intensity range: 2.5-3.5 Refer to indication-specific guidelines for appropriate target ranges for prosthetic heart valve replacement. Current interpretive data was last revised on 2019. Blood 08/27/2024 1:35 PM INCIDENT RESPONSE LEAD 08/27/2024 1:48 PM INCIDENT RESPONSE LEAD Taiwo Vázquez MD LAB BLOOD ORDERABLES Fin al Result Performing Organization Address [facility] Co de Phone Number [facility] [place] [address] * (ABNORMAL) Comprehensive metabolic panel (08/27/2024 1:35 PM INCIDENT RESPONSE LEAD) Sodium 136 135 - 145 mmol/L Potassium, pl 3.6 3.3 - 4.9 mmol/L [facility] Chloride 101 97 - 110 mmol/L [facility] CO2 28 22 - 32 mmol/L [facility] Anion gap 7 2 - 15 mmol/L [facility] BUN 29(H) 6 - 25 mg/dL [facility] Creatinine 1.81(H) 0.60 - 1.10 mg/dL [facility] Glucose 293(H) 70 - 199 mg/dL [facility] Comment: Interpretive Data Fasting glucose >/= [...] 2022. Calcium 8.9 8.5 - 10.3 mg/dL [facility] Bilirubin, total 2.4(H) 0.1 - 1.2 mg/dL [facility] Protein, pl 6.1(L) 6.5 - 8.5 g/dL [facility] Albumin 3.0(L) 3.5 - 5.0 g/dL [facility] Alk phos 100 40 - 130 Units/L [facility] ALT 21 7 - 45 Units/L [facility] AST 31 10 - 45 Units/L [facility] Blood 08/27/2024 1:35 PM INCIDENT RESPONSE LEAD 08/27/2024 1:48 PM INCIDENT RESPONSE LEAD us Taiwo Vázquez MD LAB BLOOD ORDERABLES Fin al Result [facility] Department of Laboratories [place], [place] [id number] * HLA Antibody Screen by PRA or SAB per Schedule (Class I and Class II) (08/24/2024 10:00 AM INCIDENT RESPONSE LEAD) Blood 08/24/2024 10:0 0 AM INCIDENT RESPONSE LEAD Narrative [facility] - INCIDENT RESPONSE LEAD Sample received in lab and stored. No testing performed at this time. Timothy Pardo MD LAB BLOOD ORDERABL ES Final Result [facility] * SCAN - LABS (08/24/2024) us Provider Scanning Final Result * (ABNORMAL) Urinalysis reflex to microscopic and culture Urine (08/06/2024 5:12 PM INCIDENT RESPONSE LEAD) Color, ur Straw Yellow Clarity, ur Clear [...] tendency for uric acid stone formation. Source: [facility] [employer] Current Interpretive Data was last revised on [...] performed. [facility] Urine 08/06/2024 5:12 PM INCIDENT RESPONSE LEAD 08/06/2024 5:24 PM INCIDENT RESPONSE LEAD Taiwo Vázquez MD LAB MICROBIOLOGY - GENER AL ORDERABLES Final Result [facility] [id number] [facility] Department [place] [address] * (ABNORMAL) Urinalysis, microscopic only (08/06/2024 5:12 PM INCIDENT RESPONSE LEAD) WBC, ur 6-10(A) 0 - 5 /HPF RBC, ur 3-5(A) 0 - 2 /HPF [facility] Epithelial cells, squamous, ur 1-5 0 - 5 /HPF [facility] Mucous, ur Present(A) [facility] Hyaline casts, ur 11-20(A) 0 - 10 /LPF [facility] Culture Reflex Comment Reflex conditions for urine culture (WBC >10) not met. [facility] Urine 08/06/2024 5:12 PM INCIDENT RESPONSE LEAD 08/06/2024 5:24 PM INCIDENT RESPONSE LEAD Taiwo Vázquez MD LAB URINE ORDERABLES Fin al Result [facility] [address] [facility]. [facility] [employer] [place] [address] * (ABNORMAL) eGFR (08/06/2024 5:04 PM INCIDENT RESPONSE LEAD) eGFR 34(L) >=60 mL/min/1. 73 m2 Comment: [...] last reviewed 2021. Blood 08/06/2024 5:04 PM INCIDENT RESPONSE LEAD 08/06/2024 5:24 PM INCIDENT RESPONSE LEAD us Taiwo Vázquez MD LAB BLOOD ORDERABLES Fin al Result CHARISSA ELIAS [address] [address] Department [place] [address] * (ABNORMAL) Differential, auto (08/06/2024 5:04 PM INCIDENT RESPONSE LEAD) Neutrophil abs 2.8 1.5 - 6.5 K/cumm Imm gran abs 0.0 0.0 - 0.1 K/cumm [facility] Lymphocyte abs 1.3 0.8 - 3.3 K/cumm [facility] Monocyte abs 0.5 0.2 - 0.8 K/cumm [facility] Eosinophil abs 0.9(H) 0.0 - 0.5 K/cumm [facility] Basophil abs 0.0 0.0 - 0.1 K/cumm [...] revised on 2017. Blood 08/06/2024 5:04 PM INCIDENT RESPONSE LEAD 08/06/2024 5:24 PM INCIDENT RESPONSE LEAD Taiwo Vázquez MD LAB BLOOD ORDERABLES Fin al Result Performing Organization Address [facility] Co de Phone Number CHARISSA SOLER [address] [facility]. [facility] [place] [address] * (ABNORMAL) CBC with auto differential (08/06/2024 5:04 PM INCIDENT RESPONSE LEAD) WBC 5.5 3.8 - 9.9 K/cumm Hgb 12.3 11.9 - 15.5 g/dL [facility] Hct 35.1(L) 35.6 - 45.5 % [facility] Plt 77(L) 150 - 400 K/cumm [facility] MPV 11.6 9.1 - 12.3 fL [facility] RBC 3.82(L) 3.90 - 5.20 M/cumm [facility] MCV 91.9 81.3 - 96.4 fL [facility] MCH 32.2 27.1 - 33.3 pg [facility] MCHC 35.0 32.3 - 35.7 g/dL [facility] RDW CV 15.7(H) 11.1 - 14.9 % [facility] RDW SD 52.0(H) 35.7 - 48.[address] NRBC abs 0.00 0.00 - 0.01 K/cumm [facility] Blood 08/06/2024 5:04 PM INCIDENT RESPONSE LEAD 08/06/2024 5:24 PM INCIDENT RESPONSE LEAD Taiwo Vázquez MD LAB BLOOD ORDERABLES Fin al Result Performing Organization Address [facility] Co de Phone Number CHARISSA ELIAS [address] [facility]. [place] [address] * [id number], Tumor Marker (08/06/2024 5:04 PM INCIDENT RESPONSE LEAD) alpha Fetoprotein <1.8 <=8.3 ng/mL Comment: Interpretive [...] 2018;[id number] Katya Obregon. et al. Clin Chem 2014;[id number]. Current interpretive data was last revised 2022. Testing performed by: [facility], [address] [place] [address]., [id number] Blood 08/06/2024 5:04 PM INCIDENT RESPONSE LEAD 08/06/2024 8:14 PM INCIDENT RESPONSE LEAD Taiwo Vázquez MD LAB BLOOD ORDERABLES Fin al Result Performing Organization Address City/State/[facility] Co de Phone Number [facility]SA [facility] [address] [address] [employer] [address] * Blood culture Blood (08/06/2024 5:04 PM INCIDENT RESPONSE LEAD) Report Final Report: No growth Comment:Testing performed by : [facility], [address] [place] [address]., [id number] Blood 08/06/2024 5:04 PM INCIDENT RESPONSE LEAD 08/07/2024 12:05 PM INCIDENT RESPONSE LEAD Narrative CHARISSA [facility] - 08/12/2024 1:01 PM INCIDENT RESPONSE LEAD Interpretive Data 1. Blood cultures are incubated and monitored continuously for 5 days (120 hours). The first negative report is issued within 24 hours of receipt in the laboratory. 2. All positive cultures are resulted and called to physicians/care providers as soon as they are detected. 3. A rapid molecular test for organism identification may be performed using the [employer] Blood Culture Identification panel. This assay detects microbial DNA in a blood culture broth. This assay has been cleared by the [place] Food and Drug Administration and its performance characteristics have been verified by the [facility] Microbiology Laboratory. Interpretive data was last revised on September 13, 2022. Taiwo Vázquez MD LAB MICROBIOLOGY - GENER AL ORDERABLES Final Result Performing Organization Address [facility] de Phone Number CHARISSA [facility] [address] [employer] [address] * (ABNORMAL) Protime-INR (08/06/2024 5:04 PM INCIDENT RESPONSE LEAD) PT 14.1(H) 9.7 - 13.0 sec INR 1.30(H) 0.90 - 1.20 [facility] Comment: Interpretive data Oral anticoagulant therapeutic ranges: Venous thromboembolism prophylaxis or treatment: 2.0-3.0 CARDIOLOGY Standard range: 2.0-3.0 High-intensity range: 2.5-3.5 Refer to indication-specific guidelines for appropriate target ranges for prosthetic heart valve replacement. Current interpretive data was last revised on 2019. Blood 08/06/2024 5:04 PM INCIDENT RESPONSE LEAD 08/06/2024 5:24 PM INCIDENT RESPONSE LEAD Taiwo Vázquez MD LAB BLOOD ORDERABLES Fin al Result Performing Organization Address [facility] de Phone Number CHARISSA [facility] [address] [facility] [employer] [place], [place] [id number] * (ABNORMAL) Hemoglobin A1c (08/06/2024 5:04 PM INCIDENT RESPONSE LEAD) Hgb A1C 8.4(H) 4.0 - 5.6 % Estimated Average Glucose 194 mg/dL [facility] Comment: The ADA recommends reporting an estimated Average Glucose (eAG) with all Hemoglobin A1c results using the equation derived from a study of 507 normal and diabetic adults. Minority populations were underrepresented and children were not included. (Diabetes Care 31:4808-5508, 2008). The eAG is not equivalent to a fasting glucose. Blood 08/06/2024 5:04 PM INCIDENT RESPONSE LEAD 08/06/2024 5:24 PM INCIDENT RESPONSE LEAD Taiwo Vázquez MD LAB BLOOD ORDERABLES Fin al Result [facility] [address] [facility] [place] [address] * (ABNORMAL) Bilirubin, direct (08/06/2024 5:04 PM INCIDENT RESPONSE LEAD) Pathologist [facility] Bilirubin, direct 0.6(H) 0.1 - 0.3 mg/dL Blood 08/06/2024 5:04 PM INCIDENT RESPONSE LEAD 08/06/2024 5:24 PM INCIDENT RESPONSE LEAD Taiwo Vázquez MD LAB BLOOD ORDERABLES Fin al Result Performing Organization Address City/[facility] Co de Phone Number [facility] [address] [facility] [place] [address] * (ABNORMAL) Comprehensive metabolic panel (08/06/2024 5:04 PM INCIDENT RESPONSE LEAD) Sodium 134(L) 135 - 145 mmol/L Potassium, pl 4.2 3.3 - 4.9 mmol/L [facility] Chloride 96(L) 97 - 110 mmol/L [facility] CO2 28 22 - 32 mmol/L [facility] Anion gap 10 2 - 15 mmol/L [facility] BUN 24 6 - 25 mg/dL [facility] Creatinine 1.66(H) 0.60 - 1.10 mg/dL [facility] Glucose 345(H) 70 - 199 mg/dL [...] Units/L [facility] Blood 08/06/2024 5:04 PM INCIDENT RESPONSE LEAD 08/06/2024 5:24 PM INCIDENT RESPONSE LEAD Taiwo Vázquez MD LAB BLOOD ORDERABLES Fin al Result CHARISSA [facility] [address] [facility] Department [place] [address] * SCAN - LABS (08/03/2024) Provider Scanning Final Result * (ABNORMAL) eGFR (07/30/2024 1:25 PM INCIDENT RESPONSE LEAD) eGFR 36(L) >=60 mL/min/1. 73 m2 Comment: [...] last reviewed 2021. Blood 07/30/2024 1:25 PM INCIDENT RESPONSE LEAD 07/30/2024 1:39 PM INCIDENT RESPONSE LEAD us Taiwo Vázquez MD LAB BLOOD ORDERABLES Fin al Result [facility] One [facility] Department [place] [address] * (ABNORMAL) Comprehensive metabolic panel (07/30/2024 1:25 PM INCIDENT RESPONSE LEAD) Sodium 133(L) 135 - 145 mmol/L Potassium, pl 4.5 3.3 - 4.9 mmol/L [facility] Chloride 96(L) 97 - 110 mmol/L [facility] CO2 29 22 - 32 mmol/L [facility] Anion gap 8 2 - 15 mmol/L [facility] BUN 31(H) 6 - 25 mg/dL [facility] Creatinine 1.59(H) 0.60 - 1.10 mg/dL [facility] Glucose 327(H) 70 - 199 mg/dL [facility] Comment: Interpretive Data Fasting glucose >/= [...] 2022. Calcium 9.7 8.5 - 10.3 mg/dL [facility] Bilirubin, total 2.2(H) 0.1 - 1.2 mg/dL [facility] Protein, pl 6.6 6.5 - 8.5 g/dL [facility] Albumin 3.2(L) 3.5 - 5.0 g/dL [facility] Alk phos 117 40 - 130 Units/L [facility] ALT 36 7 - 45 Units/L [facility] AST 42 10 - 45 Units/L [facility] Blood 07/30/2024 1:25 PM INCIDENT RESPONSE LEAD 07/30/2024 1:36 PM INCIDENT RESPONSE LEAD Taiwo Vázquez MD LAB BLOOD ORDERABLES Fin al Result [facility] One [facility] Department [place] [address] * (ABNORMAL) Differential, auto (07/30/2024 1:10 PM INCIDENT RESPONSE LEAD) Neutrophil abs 2.8 1.5 - 6.5 K/cumm Imm gran abs 0.0 0.0 - 0.1 K/cumm [facility] Lymphocyte abs 1.1 0.8 - 3.3 K/cumm [facility] Monocyte abs 0.5 0.2 - 0.8 K/cumm [facility] Eosinophil abs 0.8(H) 0.0 - 0.5 K/cumm [facility] Basophil abs 0.0 0.0 - 0.1 K/cumm [facility] Neutrophil pct 52.8 % [facility] Comment: Interpretive Data Percent cell count reference ranges are not reported, since discordance with absolute values may lead to misinterpretation of CBC data. Current Interpretive Data was last revised on 2017. Imm gran pct 0.2 % [facility] Comment: Interpretive Data Percent cell count reference ranges are not reported, since discordance with absolute values may lead to misinterpretation of CBC data. Current Interpretive Data was last revised on 2017. Lymphocyte pct 21.2 % [facility] Comment: Interpretive Data Percent cell count reference ranges are not reported, since discordance with absolute values may lead to misinterpretation of CBC data. Current Interpretive Data was last revised on 2017. Monocyte pct 10.1 % [facility] Comment: Interpretive Data Percent cell count reference ranges are not reported, since discordance with absolute values may lead to misinterpretation of CBC data. Current Interpretive Data was last revised on 2017. Eosinophil pct 14.9 % [facility] Comment: Interpretive Data Percent cell count reference ranges are not reported, since discordance with absolute values may lead to misinterpretation of CBC data. Current Interpretive Data was last revised on 2017. Basophil pct 0.8 % [facility] Comment: Interpretive Data Percent cell count reference ranges are not reported, since discordance with absolute values may lead to misinterpretation of CBC data. Current Interpretive Data was last revised on 2017. Blood 07/30/2024 1:10 PM INCIDENT RESPONSE LEAD 07/30/2024 1:36 PM INCIDENT RESPONSE LEAD us Taiwo Vázquez MD LAB BLOOD ORDERABLES Fin al Result [facility] One [facility] Department [place] [address] * (ABNORMAL) CBC with auto differential (07/30/2024 1:10 PM INCIDENT RESPONSE LEAD) WBC 5.2 3.8 - 9.9 K/cumm Hgb 12.6 11.9 - 15.5 g/dL [facility] Hct 37.1 35.6 - 45.5 % [facility] Plt 64(L) 150 - 400 K/cumm [facility] MPV 12.3 9.1 - 12.3 fL [facility] RBC 4.07 3.90 - 5.20 M/cumm [facility] MCV 91.2 81.3 - 96.4 fL [facility] MCH 31.0 27.1 - 33.3 pg [facility] MCHC 34.0 32.3 - 35.7 g/dL [facility] RDW CV 15.4(H) 11.1 - 14.9 % [facility] RDW SD 51.0(H) 35.7 - 48.1 fL [facility] NRBC abs 0.00 0.00 - 0.01 K/cumm [facility] Blood 07/30/2024 1:10 PM INCIDENT RESPONSE LEAD 07/30/2024 1:36 PM INCIDENT RESPONSE LEAD Taiwo Vázquez MD LAB BLOOD ORDERABLES Fin al Result Performing Organization Address [facility] de Phone Number [facility] Department [place] [address] * (ABNORMAL) Protime-INR (07/30/2024 1:10 PM INCIDENT RESPONSE LEAD) PT 15.1(H) 9.7 - 13.0 sec INR 1.39(H) 0.90 - 1.20 [facility] Comment: Interpretive data Oral anticoagulant therapeutic ranges: Venous thromboembolism prophylaxis or treatment: 2.0-3.0 CARDIOLOGY Standard range: 2.0-3.0 High-intensity range: 2.5-3.5 Refer to indication-specific guidelines for appropriate target ranges for prosthetic heart valve replacement. Current interpretive data was last revised on 2019. Blood 07/30/2024 1:10 PM INCIDENT RESPONSE LEAD 07/30/2024 1:36 PM INCIDENT RESPONSE LEAD Taiwo Vázquez MD LAB BLOOD ORDERABLES Fin al Result Performing Organization Address [facility] de Phone Number [facility] Department [place] [address] * HLA Antibody Screen by PRA or SAB per Schedule (Class I and Class II) (07/20/2024 10:00 AM INCIDENT RESPONSE LEAD) Blood 07/20/2024 10:0 0 AM INCIDENT RESPONSE LEAD Narrative [facility] - INCIDENT RESPONSE LEAD Sample received in lab. Single Antigen Antibody Screen ordered. Timothy Pardo MD LAB BLOOD ORDERABL ES Final Result [facility] * HLA Antibody Screen - SAB (Class I and Class II) (07/20/2024 10:00 AM INCIDENT RESPONSE LEAD) Class I Treatment EDTA [facility] Class I [...] DR12, DR52 [facility] 07/20/2024 10:0 0 AM INCIDENT RESPONSE LEAD 07/23/2024 10:09 AM INCIDENT RESPONSE LEAD Narrative [facility] - 07/23/2024 10:09 AM INCIDENT RESPONSE LEAD Single-antigen HLA antibody screen is performed on serum samples using a method developed and validated by the [facility] HLA laboratory based on an FDA-approved IVD kit (LABScreen Single-Antigen, [employer], [place], [place]). All patient serum samples are pretreated with EDTA before the screen to prevent complement interference. Additional serum treatments, such as adsorption and DTT treatment, may be performed as indicated. Interpretive comments: Low risk: MFI [id number]. Moderate risk: MFI 4828-5925. Increased risk: MFI >/= 5000. The presence [...] antigens to avoid. Testing performed at the [facility] Laboratory, [address] [place] [address], 5th floor, [place], [address]. CLIA # [id number]. Rani Smith, Ph.D., [place], HLA Laboratory Aurelio Palafox M.D., Ph.D., Field Crop Technical Officer, HLA Laboratory Norma Talamantes, Ph.D., CLIA Field Crop Technical Officer, [facility] Clinical Laboratories Current methodology and interpretive comments last revised on 09/06/2022. Timothy Pardo MD LAB BLOOD ORDERABL ES Final Result [facility] * SCAN - LABS (07/20/2024) us Provider Scanning Edited Result - Final * (ABNORMAL) eGFR (06/30/2024 12:36 PM INCIDENT RESPONSE LEAD) eGFR 32(L) >=60 mL/min/1. 73 m2 Comment: [...] reviewed 2021. Blood 06/30/2024 12:3 6 PM INCIDENT RESPONSE LEAD 06/30/2024 1:06 PM INCIDENT RESPONSE LEAD us Taiwo Vázquez MD LAB BLOOD ORDERABLES Fin al Result [facility] One [facility] Department [place] [address] * (ABNORMAL) Differential, auto (06/30/2024 12:36 PM INCIDENT RESPONSE LEAD) Neutrophil abs 2.7 1.5 - 6.5 K/cumm Imm gran abs 0.0 0.0 - 0.1 K/cumm [facility] Lymphocyte abs 1.0 0.8 - 3.3 K/cumm [facility] Monocyte abs 0.5 0.2 - 0.8 K/cumm [facility] Eosinophil abs 0.7(H) 0.0 - 0.5 K/cumm [facility] Basophil abs 0.0 0.0 - 0.1 K/cumm [facility] Neutrophil pct 54.6 % [facility] Comment: Interpretive Data Percent cell count reference ranges are not reported, since discordance with absolute values may lead to misinterpretation of CBC data. Current Interpretive Data was last revised on 2017. Imm gran pct 0.2 % [facility] Comment: Interpretive Data Percent cell count reference ranges are not reported, since discordance with absolute values may lead to misinterpretation of CBC data. Current Interpretive Data was last revised on 2017. Lymphocyte pct 21.3 % [facility] Comment: Interpretive Data Percent cell count reference ranges are not reported, since discordance with absolute values may lead to misinterpretation of CBC data. Current Interpretive Data was last revised on 2017. Monocyte pct 10.0 % [facility] Comment: Interpretive Data Percent cell count reference ranges are not reported, since discordance with absolute values may lead to misinterpretation of CBC data. Current Interpretive Data was last revised on 2017. Eosinophil pct 13.5 % [facility] Comment: Interpretive Data Percent cell count reference ranges are not reported, since discordance with absolute values may lead to misinterpretation of CBC data. Current Interpretive Data was last revised on 2017. Basophil pct 0.4 % [facility] Comment: Interpretive Data Percent cell count reference ranges are not reported, since discordance with absolute values may lead to misinterpretation of CBC data. Current Interpretive Data was last revised on 2017. Blood 06/30/2024 12:3 6 PM INCIDENT RESPONSE LEAD 06/30/2024 12:59 PM INCIDENT RESPONSE LEAD us Taiwo Vázquez MD LAB BLOOD ORDERABLES Fin al Result [facility] One [facility] Department [place] [address] * (ABNORMAL) CBC with auto differential (06/30/2024 12:36 PM INCIDENT RESPONSE LEAD) WBC 4.9 3.8 - 9.9 K/cumm Hgb 12.5 11.9 - 15.5 g/dL [facility] Hct 37.3 35.6 - 45.5 % [facility] Plt 59(L) 150 - 400 K/cumm [facility] MPV 11.7 9.1 - 12.3 fL [facility] RBC 4.02 3.90 - 5.20 M/cumm [facility] MCV 92.8 81.3 - 96.4 fL [facility] MCH 31.1 27.1 - 33.3 pg [facility] MCHC 33.5 32.3 - 35.7 g/dL [facility] RDW CV 15.4(H) 11.1 - 14.9 % [facility] RDW SD 52.5(H) 35.7 - 48.1 fL [facility] NRBC abs 0.00 0.00 - 0.01 K/cumm [facility] Blood 06/30/2024 12:3 6 PM INCIDENT RESPONSE LEAD 06/30/2024 12:59 PM INCIDENT RESPONSE LEAD Taiwo Vázquez MD LAB BLOOD ORDERABLES Fin al Result Performing Organization Address [facility] de Phone Number [facility] Department [place] [address] * (ABNORMAL) Protime-INR (06/30/2024 12:36 PM INCIDENT RESPONSE LEAD) Pathologist [facility] PT 13.4(H) 9.7 - 13.0 sec INR 1.24(H) 0.90 - 1.20 [facility] Comment: Interpretive data Oral anticoagulant therapeutic ranges: Venous thromboembolism prophylaxis or treatment: 2.0-3.0 CARDIOLOGY Standard range: 2.0-3.0 High-intensity range: 2.5-3.5 Refer to indication-specific guidelines for appropriate target ranges for prosthetic heart valve replacement. Current interpretive data was last revised on 2019. Blood 06/30/2024 12:3 6 PM INCIDENT RESPONSE LEAD 06/30/2024 12:59 PM INCIDENT RESPONSE LEAD Taiwo Vzáquez MD LAB BLOOD ORDERABLES Fin al Result Performing Organization Address [facility] Co de Phone Number [facility] Department [place] [address] * (ABNORMAL) Comprehensive metabolic panel (06/30/2024 12:36 PM INCIDENT RESPONSE LEAD) Pathologist [facility] Sodium 135 135 - 145 mmol/L Potassium, pl 4.4 3.3 - 4.9 mmol/L [facility] Chloride 100 97 - 110 mmol/L [facility] CO2 28 22 - 32 mmol/L [facility] Anion gap 7 2 - 15 mmol/L [facility] BUN 28(H) 6 - 25 mg/dL [facility] Creatinine 1.77(H) 0.60 - 1.10 mg/dL [facility] Glucose 199 70 - 199 mg/dL [facility] Comment: Interpretive Data Fasting glucose >/= [...] 2022. Calcium 9.3 8.5 - 10.3 mg/dL [facility] Bilirubin, total 2.0(H) 0.1 - 1.2 mg/dL [facility] Protein, pl 6.4(L) 6.5 - 8.5 g/dL [facility] Albumin 3.2(L) 3.5 - 5.0 g/dL [facility] Alk phos 115 40 - 130 Units/L [facility] ALT 36 7 - 45 Units/L [facility] AST 39 10 - 45 Units/L [facility] Blood 06/30/2024 12:3 6 PM INCIDENT RESPONSE LEAD 06/30/2024 12:59 PM INCIDENT RESPONSE LEAD Taiwo Vázquez MD LAB BLOOD ORDERABLES [facility] al Result Performing Organization Address City/State/[facility] Co de Phone Number [facility] Department [place] [address] * Pap and High Risk HPV and Genotyping (Cytology Component) (04/28/2024 10:41 AM CDT) Thin prep (Pap test) 04/28/2024 10:41 AM CDT 04/28/2024 1:00 PM CDT Narrative PATHOLOGY [facility] - 05/04/2024 4:21 PM CDT EPIC results best viewed via link to PDF [facility] Surgical Pathology [facility], [place] [address] Note to Patients: This report may contain [...] Gender: F : 1960 (Age: 63) Address: [address] [place] [address] Hospital #: [id number] Service: Medical Location: [place] [address] Patient Type: [facility] Inpatient Taken: 04/28/2024 Received: 04/28/2024 Accessioned: [...] this test have been verified by the [facility] Molecular Infectious Disease laboratory. Correlate [...] clinical information and biopsy results as indicated. [facility] Clinical Laboratory Improvement Amendments (CLIA) mandate that cytologic and histologic results be correlated for laboratory quality assurance calibrator & improvement standards. FOR ALL HIGH-GRADE CASES [...] determined by the Surgical Pathology Department at [facility] as part of an ongoing housing quality standard inspector program and in compliance with federally [...] determined by the Surgical Pathology Department of [facility]. It has not been cleared or approved by the U. S. Food and Drug Administration. Eladio Carey MD LAB CYTOLOGY ORDERABLES Final Result PATHOLOGY [facility] 3rd Floor [place], [place] [phone] * Screening Mammogram Bilateral W Pal (04/27/2024 1:55 PM CDT) Anatomical Region Laterality Modality Breast Bilateral Mammography Narrative 04/27/2024 1:52 PM CDT Mammogram Technique: Bilateral Digital Breast Tomosynthesis, Bilateral C-view 2D Screening mammogram. Views obtained: bilateral craniocaudal and bilateral mediolateral oblique. Computer Aided Detection was performed. Mammogram Findings: The present examination has been compared to prior imaging studies performed at [facility] on 05/15/2021 and 12/06/2021. There [...] compared to prior imaging studies performed at [facility] on 05/15/2021 and 12/06/2021. There [...] revised on 2018. Triglycerides 43 <=149 mg/dL [facility] Comment: Interpretive Data Ages < or [...] revised on 2018. HDL 64 >=40 mg/dL [facility] Comment: Interpretive Data Ages < or [...] on 2018. LDL, calculated 47 <=129 mg/dL [facility] Comment: Interpretive Data Ages < or [...] revised on 2024. Non-HDL Cholesterol 58 mg/dL [facility] Comment: Interpretive Data Ages < or [...] last revised on 2018. Chol/HDL ratio 2 [facility] Blood 04/22/2024 12:5 8 AM CDT 04/22/2024 3:00 AM CDT us John Paul Reddy MD LAB BLOOD ORDERABLES Final Resul t [facility] Department [place] [address] * Hepatitis C antibody Blood (06/16/2023 6:09 AM INCIDENT RESPONSE LEAD) Hep C Ab Nonreactive Nonreactive [facility] Comment:Antibodies to HCV no t detected. Does NOT exclude the possibility of recent exposure to HCV. Current interpretive data was last revised on 22 Blood 06/16/2023 6:09 AM INCIDENT RESPONSE LEAD 06/16/2023 6:35 AM INCIDENT RESPONSE LEAD us Alejandro Frazier MD LAB MICROBIOLOGY - GENERAL ORDERABLES Final Result [facility] Department [place] [address] * COLONOSCOPY (05/30/2022 9:28 AM CDT) Anatomical Region Laterality Modality Other Narrative Procedure Note Pat Robins MD - 05/30/2022 9:28 AM CDT [facility] ENDOSCOPY [facility] Patient Name: Aleah Levine Procedure Date: 05/30/2022 9:28 AM Date of : 1960 Admit Type: Outpatient Age: 61 Gender: Female Attending MD: Pat Robins M.D. Room: [facility] ENDOSCOPY ROOM 3 Note Status: Finalized [...] The scope was passed under direct vision.The [facility] [id number] endoscope was introducedthrough the anus and [...] On: 05/30/2022 9:28 AM Recognized by the [employer] [employer] for promoting quality in endoscopy Pat Robins MD ENDOSCOPY PROCEDURES Ju l Result * Albumin Creatinine Ratio, Urine (03/01/2021 2:45 PM CDT) Albumin Ur <12.0 mg/L [facility] Comment: Interpretive Data No reference range established. Current interpretive data was last revised 2018. Creatinine Ur 59.5 mg/dL [facility] Comment: Interpretive Data No reference range established. Current interpretive data was last revised 2018. Albumin Creatinine Ratio, Ur <20 1 - 29 mg/g [facility] Urine 03/01/2021 2:45 PM CDT 03/01/2021 3:41 PM CDT Oly Baker MD LAB URINE ORDER [place] Final Result [facility] Department [place] [address] from Last 3 Months or Most Recently Relevant to Health Maintenance Insurance [facility] BLUE [place] [facility] Member Subscriber Plan / Payer (Ef fective 2018-Present) Name:Aleah Levine Relation to Subscriber:Self Name:ALEAH LEVINE Payer ID:[id number] (NAIC) Type:HandMinder Address: [phone] [facility] Member Subscriber Plan / Payer (Ef fective 2021-Present) Name:Aleah Levine Relation to Subscriber:Self Name:Aleah Levine Payer ID:[id number] (NAIC) Type:HandMinder Address: [phone] [employer] [address] [employer]K [employer] [place] [id number] Advance Directives For more information, please contact: [phone] * Full Code (Latest Code Status on [...] 3:22 PM 01/03/2023 6:29 PM Care Teams Curator Relationship Specialty Start Date End Date Maddy Romano MD [address] [place] [id number] PCP - General 09/28/16 Manas Ibarra MD [address] [place] [id number] Referring Physician Thoracic Surgery 11/05/18 Zion Barton MD [address] [place] [id number] Radiation Oncologist Radiation Oncology 05/05/19 Molina Charles MD [address] [place], [place] [id number] [address] [place], [place] [id number] Referring Physician Transplant Hepatology 12/15/20 Inés Lemus, TYRA [address] [facility] [address] [place], [place] [phone] Consumer Insights Intern 10/31/21 Karuna Maria, OT Occupational Therapist Occupational Therapy 09/20/22 Renu Treviño NP [address] [facility] [address] [place], [place] [id number] Nurse Practitioner Radiation Oncology 11/08/22 Eladio Mcrae MD [address] [place] [address] Referring Physician Obstetrics and Gynecology 11/15/22 Tamiko Schroeder, RN [address] [place] [address] Consumer Insights Intern 04/27/24
--- OUTSIDE RECORDS SUMMARY | 2024-09-24 03:47 | XMS_ITS | Referral Summary ---
Author Organization [facility] Address [address] [place] [address] Care Team Providers Care Manufacturing Support Engineer Name Role Phone Maddy Romano MD Primary Care Provider [phone] Manas Ibarra MD Unavailable Zion Barton MD Unavailable Molina Charles MD Unavailable [phone] Inés Lemus RN Unavailable [phone] Karuna Maria OT Unavailable UnavailRenu Mueller NP Unavailable [phone] Eladio Mcrae MD Unavailable [phone] Tamiko Schroeder RN Unavailable [phone] Encounters Date Type Department Care Team Description 09/15/2024 Documentation [facility] G[facility]enterology [address] [facility] 12th [place] [address] [place] [address] Alexandra Issa RN 09/14/2024 Telephone [facility] Transplant Liver [address] Mailstop [phone] [place] [address] Inés Lemus, RN 09/07/2024 Orders Only [facility] Scanning, Provider 08/30/2024 Telephone [facility] Transplant Liver [address] Mailstop [phone] [place] [address] Inés Lemus, RN 08/28/2024 Documentation [facility] G[facility]enterology [address] [facility] 12th [place] [address] Alexandra Issa, TYRA 08/27/2024 1:40 PM OIL WELL GUN PERFORATOR OPERATOR Lab [facility] ([facility] [address] [place] [address] LYONS (nonalcoholic steatohepatitis) 08/25/2024 Documentation [facility]enterology [address] [facility] 12th [place] [address] [place] [address] Alexandra Issa, TYRA 08/25/2024 Telephone [facility] Transplant Liver [address] Mailstop [phone] [place] [address] Inés Lemus, TYRA 08/25/2024 Documentation [facility] [address] [facility] 12th [place] [address] [place] [address] Alexandra Issa, TYRA 08/24/2024 10:00 AM OIL WELL GUN PERFORATOR OPERATOR - 08/24/2024 11:59 PM OIL WELL GUN PERFORATOR OPERATOR Hospital Encounter [facility] of [address] [address] ESRD (end stage renal disease) (CMS/HCC) (HCC) Discharge Disposition: Discharge to home or self care 08/24/2024 Orders Only [facility] Scanning, Provider 08/24/2024 9:00 AM OIL WELL GUN PERFORATOR OPERATOR Social Work [facility] Trans[facility] Center [address] [facility], 8th Floor, [place] [address] Ragini Garner LCSW 08/17/2024 Telephone [facility] Transplant Liver [address] Mailstop [phone] [place] [address] Inés Lemus, TYRA 08/07/2024 Telephone [facility] Transplant Liver [address] Mailstop [phone] [place] [address] Inés Lemus, TYRA 08/06/2024 4:35 PM OIL WELL GUN PERFORATOR OPERATOR Lab [facility] [address] [place] [address] Hepatic encephalopathy (HCC); Type 2 diabetes mellitus with stage 4 chronic kidney disease, with long-term current use of insulin (HCC); Hepatic cirrhosis, unspecified hepatic cirrhosis type, unspecified whether ascites present (HCC); Dysuria 08/06/2024 3:45 PM OIL WELL GUN PERFORATOR OPERATOR Office Visit [facility]ology [address] [place] [address] Medical Office Building [address], [address] [place] [address] Taiwo Vázquez MD Hepatic cirrhosis, unspecified hepatic [...] LYONS (CMS/HCC) (HCC); Dysuria 08/03/2024 Orders Only [facility] GASTROENTEROLOGY Scanning, Provider 07/31/2024 Documentation [facility] G[facility]enter[facility] [place] [facility] 12th [place] [address] [place] [address] Alexandra Issa RN 07/31/2024 Documentation [facility] Transplant Liver [address] Mailstop [phone] [place] [address] Chelsea Barker RN 07/31/2024 Orders Only [facility] G[facility]enter[facility] [place] [facility] Medicine 12th [place] [address] [place] [address] Alexandra Issa RN 07/30/2024 3:45 PM OIL WELL GUN PERFORATOR OPERATOR Lab [facility] ([facility]) [address] [place] [phone] ESRD (end stage renal disease) (CMS/HCC) (HCC); LYONS (nonalcoholic steatohepatitis) 07/24/2024 Telephone [facility] Transplant Liver [address] [facility] [address] Mailstop [phone] [place] [address] Inés Lemus, TYRA 07/24/2024 Telephone [facility] Transplant Liver [address] [facility] [address] Mailstop [phone] [place] [address] Inés Lemus, TYRA 07/22/2024 Documentation [facility] G[facility]enterology [address] [place] [address] 12th [place] [address] [place] [address] Alexandra Issa RN 07/20/2024 10:00 AM OIL WELL GUN PERFORATOR OPERATOR - 07/20/2024 11:59 PM OIL WELL GUN PERFORATOR OPERATOR Hospital Encounter [facility] [address] [place] [address] ESRD (end stage renal disease) (CMS/HCC) (HCC) Discharge Disposition: Discharge to home or self care 07/20/2024 Orders Only [facility] Scanning, Provider 07/17/2024 Telephone [facility] Specialty Services [address] [place] [address] Mayra Machuca RN 07/17/2024 Telephone [facility] Transplant Liver [address] [facility] [address] Mailstop [phone] [place] [address] Inés Lemus, TYRA 07/15/2024 10:30 AM OIL WELL GUN PERFORATOR OPERATOR Office Visit [facility] Gasteroenterology [address] [place] [address] 12th [place] [address] [place] [phone] Britany Toribio MD Cirrhosis of liver without ascites, unspecified hepatic cirrhosis type (HCC) (Primary Dx) 07/08/2024 Documentation [facility]enter[facility] [address] [facility] Medicine 12th [place] [address] [place] [address] Alexandra Issa RN 07/03/2024 Telephone [facility] Transplant Liver [address] [address] Mailstop [phone] [place] [address] Inés Lemus RN 07/02/2024 Documentation [facility] [address] [facility] 12th [place] [address] [place] [address] Alexandra Issa RN 06/30/2024 2:20 PM OIL WELL GUN PERFORATOR OPERATOR Lab [facility] ([facility]) [address] [place] [address] LYONS (nonalcoholic steatohepatitis) 06/30/2024 11:10 AM OIL WELL GUN PERFORATOR OPERATOR Office Visit [facility] Nephrology [facility] 5th [place] [address] [place] [address] Stage 3b chronic kidney disease (HCC) (Primary [...] stage 3a chronic kidney disease, unspecified whether fpc insulin use (HCC) Will use 1 sensor every 10 days. 1 box = 3 sensors. 3 each 5 025 Active blood-glucose transmitter (Dexcom G6 Transmitter) deviceIndications :Type 2 diabetes mellitus without complication, unspecified whether fpc insulin use (HCC) Will use 1 transmitter every 90 days 1 each 1 025 Active spironolactone (ALDACTONE) 100 mg tablet Take 3 tablets (300 mg total) by mouth daily 90 tablet 11 025 2025 Active pen needle, diabetic (BD Ultra-Fine Mini Pen Needle) 31 gauge x 3/16 needleIndications :Type 2 diabetes mellitus without complication, unspecified whether fpc insulin use (HCC) USE TO INJECT INSULIN SIX TIMES PER DAY 200 each 025 Active pen needle, diabetic 31 gauge x 316 needleIndications :Type 2 diabetes mellitus without complication, unspecified whether terminologist insulin use (HCC) Use to inject insulin [...] 10/10/2022 Assessment & Plan (10/12/2022 12:20 PM OIL WELL GUN PERFORATOR OPERATOR): Episode of atrial flutter overnight with RVR up to 140s. Patient asymptomatic, normotensive. IV metoprolol X2 given to achieve rate control. [id number] vasc score of 3. TTE from 09/03 without valvular abnormalities. No new episodes today. Lytes within normal limits. 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 Lovenox is not ideal given her platelet count less than 100. Her INR is too high to consider warfarin. Anemia 10/05/2022 Assessment & Plan (10/11/2022 12:28 PM OIL WELL GUN PERFORATOR OPERATOR): - Hgb has down trended from 8 [...] 10/05/2022 Assessment & Plan (10/11/2022 12:45 PM OIL WELL GUN PERFORATOR OPERATOR): -Continue home dose of metoprolol 25mg BID Hepatic encephalopathy 07/31/2022 Assessment & Plan (03/06/2023 5:49 PM CDT): Good control on current medical management. No changes indicated. Assessment & Plan (08/03/2022 1:05 PM OIL WELL GUN PERFORATOR OPERATOR): Pt with hx of LYONS cirrhosis presenting with progressively worsening mental status over past several weeks. On initial examination patient was AAOx1, on subsequent exam she is now AAOx2 with appropriate responses. NH3 75. Unfortunately no safe area for bedside diagnostic paracentesis. Slurred speech and concerns for swallowing. SUPERVISOR EXTRUSION completed swallow study and normal. Head CT: No acute intracranial abnormality. -Awaiting Liver MRI -Increased Lactulose to 4x daily (only 1 stool on 08/02) - Rifaximin and Lactulose (goal 3-5 bowel movements) - Fall precautions. - PT/OT: Home with assistance. Assessment & Plan (08/02/2022 2:34 PM OIL WELL GUN PERFORATOR OPERATOR): Pt with hx of LYONS cirrhosis presenting with progressively worsening mental status over past several weeks. On initial examination patient was AAOx1, on subsequent exam she is now AAOx2 with appropriate responses. NH3 75. Unfortunately no safe area for bedside diagnostic paracentesis. Slurred speech and concerns for swallowing. SUPERVISOR EXTRUSION completed swallow study and normal. Head CT: No acute intracranial abnormality. - Rifaximin and Lactulose (goal 3-5 bowel movements) - Fall precautions. - PT/OT: Home with assistance. - SUPERVISOR EXTRUSION completed bedside swallow and Normal Assessment & Plan (08/01/2022 3:28 PM OIL WELL GUN PERFORATOR OPERATOR): Pt with hx of LYONS cirrhosis presenting [...] concerns for swallowing. - Fall precautions. - SUPERVISOR EXTRUSION/PT/OT Consults. Assessment & Plan (08/01/2022 4:16 AM OIL WELL GUN PERFORATOR OPERATOR): Pt with hx of LYONS cirrhosis presenting [...] (10/22/2022): Added automatically from request for surgery [id number] Volume overload 10/06/2022 05/29/2024 Assessment & Plan (10/10/2022 1:09 PM OIL WELL GUN PERFORATOR OPERATOR): In the setting of LYONS cirrhosis. Diuretics [...] (08/22/2022): Added automatically from request for surgery [id number] Portal vein thrombosis 08/01/202208/22 Assessment & Plan (08/03/2022 1:09 PM OIL WELL GUN PERFORATOR OPERATOR): -Apixaban 2.5mg BID Assessment & Plan (08/02/2022 2:39 PM OIL WELL GUN PERFORATOR OPERATOR): -Apixaban 2.5mg BID Assessment & Plan (08/01/2022 3:27 PM OIL WELL GUN PERFORATOR OPERATOR): -Apixaban 2.5mg BID Assessment & Plan (08/01/2022 4:17 AM OIL WELL GUN PERFORATOR OPERATOR): Continue home apixaban LYONS (nonalcoholic steatohepatitis) 11/02/2021 07/15/2024 Abnormal mammogram of right breast 11/02/2020 08/22/2022 Preop cardiovascular exam 09/23/2019 Overview (09/23/2019): Added automatically from request for surgery [id number] Colon cancer screening 04/21/201908/22 Overview (04/21/2019): Added automatically from request for surgery [id number] Esophageal varices without bleeding (CMS/HCC) 04/21/20 19 08/22/2022 Overview (04/21/2019): Added automatically from request for surgery [id number] Steatosis of liver 05/20/2017 correction current use of ant icoagulant therapy 07/26/2016 [...] 05/29/2024 Assessment & Plan (10/12/2022 2:58 PM OIL WELL GUN PERFORATOR OPERATOR): Previously on dose reduced insulin regimen at [facility] 20u lantus, 7u tid lispro + ssi. - Her blood sugars were initially on the lower side (90-100) in setting of poor po intake and TR. Continue SSI only for now and will uptitrate as needed. - Continue Lantus 10u/daily + lispro 4TID Assessment & Plan (08/03/2022 1:09 PM OIL WELL GUN PERFORATOR OPERATOR): Home regimen of toujeo 42 units + SSI. -Lantus, Lispro TID AC and SSI -No Juice Diet -Consistent Carb+ 2gm NA diet. -CTM BGL Assessment & Plan (08/02/2022 2:38 PM OIL WELL GUN PERFORATOR OPERATOR): Home regimen of toujeo 42 units + SSI. -Lantus, Lispro TID AC and SSI -No Juice Diet -Consistent Carb+ 2gm NA diet. -CTM BGL Assessment & Plan (08/01/2022 3:26 PM OIL WELL GUN PERFORATOR OPERATOR): Home regimen of toujeo 42 units + SSI. Given TR and decreased PO intake, insulin regimen reduced to Lantus 20units. - Continue on 2g Na + DM2 diet - CTM BGL Assessment & Plan (08/01/2022 4:17 AM OIL WELL GUN PERFORATOR OPERATOR): Home regimen of toujeo 42 units + [...] Influenza, Trivalent, Preser vative Free, Intramuscular 05/29/2013 Sayah (J&J) SARS-CoV-2 Vaccination 10/17/2020 Pneumococcal Conjugate PCV 13 05/26/2015 Pneumococcal Polysaccharide PPV23 03/24/2014 RSV Vaccine, Pref, Recombina nt, Subunit, Adjuvanted, PF, IM (Arexvy) 12/18/2023 Tdap 03/24/2014 ZOSTER Recombinant 02/17/2020,05/29/2019 Social History Tobacco Use Types Packs/Day Years Used Date Smoking Tobacco: Former Cigarettes 0.5 51 1 970 - 2020 Smokeless Tobacco: Never Tobacco Cessation:Counseling Given: Not Answered [facility] Utilities Answer Date Recorded In the past 12 months has e [employer], [employer], [employer], or water [employer] threatened to shut off services in your [...] often do you attend chur ch or restorationist services? Never 08/24/2024 Do you belong to any clubs o r organizations such as hoahaoism groups, unions, fraternal or athletic groups, or [...] place to sleep or slept in a usp (including now)? No 12/31/2022 Housing Stability Vital [...] were you homeless or living in a usp (including now)? No 08/24/2024 Personal Safety Answer Date Recorded Have you ever been in or are you currently in a harmful physical or emotional relationship or is someone making you feel afraid or unsafe? 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 file Last Filed Vital Signs Vital Sign Reading Time Taken Comments Blood Pressure 122/66 08/06/2024 3:48 PM OIL WELL GUN PERFORATOR OPERATOR Pulse 59 08/06/2024 3:48 PM OIL WELL GUN PERFORATOR OPERATOR Temperature 36.5 C (97.7 F) 08/06/2024 3:48 PM OIL WELL GUN PERFORATOR OPERATOR Respiratory Rate 18 08/06/2024 3:48 PM OIL WELL GUN PERFORATOR OPERATOR Oxygen Saturation 100% 08/06/2024 3:48 PM OIL WELL GUN PERFORATOR OPERATOR Inhaled Oxygen Concentration - - Weight 117 kg (258 lb) 08/06/2024 3:48 PM OIL WELL GUN PERFORATOR OPERATOR Height 170.2 cm (5' 7.01 ) 08/06/2024 3:48 PM CS T Body Mass Index 40.4 08/06/2024 3:48 PM OIL WELL GUN PERFORATOR OPERATOR Plan of Treatment Scheduled Procedures Name Priority Associated Diagnoses Date/Ti me COLONOSCOPY Routine adult health maintenance LYONS (nonalcoholic steatohepatitis) Procedures Procedure Name Priority Date/Time Associated Diagnosis Comments SCAN - LABS 09/07/2024 EGFR Routine 08/27/2024 1:35 PM OIL WELL GUN PERFORATOR OPERATOR LYONS (nonalcoholic steatohepatitis) COMPREHENSIVE METABOLIC PANEL Routine 08/27/2024 1:35 PM OIL WELL GUN PERFORATOR OPERATOR LYONS (nonalcoholic steatohepatitis) PROTIME-INR Routine 08/27/2024 1:35 PM OIL WELL GUN PERFORATOR OPERATOR LYONS (nonalcoholic steatohepatitis) HLA ANTIBODY SCREEN BY PRA OR SAB PER SCHEDULE (CLASS I AND CLASS II) Routine 08/24/2024 10:00 AM OIL WELL GUN PERFORATOR OPERATOR ESRD (end stage renal disease) (CMS/HCC) (HCC) SCAN - LABS 08/24/2024 URINALYSIS, MICROSCOPIC ONLY Routine 08/06/2024 5:12 PM OIL WELL GUN PERFORATOR OPERATOR Dysuria URINALYSIS AND REFLEX TO MICROSCOPIC AND CULTURE Routine 08/06/2024 5:12 PM OIL WELL GUN PERFORATOR OPERATOR Dysuria EGFR Routine 08/06/2024 5:04 PM OIL WELL GUN PERFORATOR OPERATOR Hepatic cirrhosis, unspecified hepatic cirrhosis type, unspecified whether ascites present (HCC) Hepatic encephalopathy (HCC) DIFFERENTIAL AUTO Routine 08/06/2024 5:0 4 PM OIL WELL GUN PERFORATOR OPERATOR Hepatic cirrhosis, unspecified hepatic cirrhosis type, unspecified whether ascites present (HCC) Hepatic encephalopathy (HCC) CBC WITH AUTO DIFFERENTIAL Routine 08/06/2024 5:04 PM OIL WELL GUN PERFORATOR OPERATOR Hepatic cirrhosis, unspecified hepatic cirrhosis type, unspecified whether ascites present (HCC) Hepatic encephalopathy (HCC) COMPREHENSIVE METABOLIC PANEL Routine 08/06/2024 5:04 PM OIL WELL GUN PERFORATOR OPERATOR Hepatic cirrhosis, unspecified hepatic cirrhosis type, unspecified whether ascites present (HCC) Hepatic encephalopathy (HCC) BILIRUBIN, DIRECT Routine 08/06/2024 5:0 4 PM OIL WELL GUN PERFORATOR OPERATOR Hepatic cirrhosis, unspecified hepatic cirrhosis type, unspecified whether ascites present (HCC) Hepatic encephalopathy (HCC) PROTIME-INR Routine 08/06/2024 5:04 PM OIL WELL GUN PERFORATOR OPERATOR Hepatic cirrhosis, unspecified hepatic cirrhosis type, unspecified whether ascites present (HCC) Hepatic encephalopathy (HCC) [id number], TUMOR MARKER Routine 08/06/2024 5:04 PM OIL WELL GUN PERFORATOR OPERATOR Hepatic cirrhosis, unspecified hepatic cirrhosis type, unspecified whether ascites present (HCC) Hepatic encephalopathy (HCC) HEMOGLOBIN A1C Routine 08/06/2024 5:04 PM OIL WELL GUN PERFORATOR OPERATOR Hepatic encephalopathy (HCC) Type 2 diabetes mellitus with stage 4 chronic kidney disease, with long-term current use of insulin (HCC) BLOOD CULTURE Routine 08/06/2024 5:04 PM OIL WELL GUN PERFORATOR OPERATOR Hepatic encephalopathy (HCC) SCAN - LABS 08/03/2024 EGFR Routine 07/30/2024 1:25 PM OIL WELL GUN PERFORATOR OPERATOR LYONS (nonalcoholic steatohepatitis) COMPREHENSIVE METABOLIC PANEL Routine 07/30/2024 1:25 PM OIL WELL GUN PERFORATOR OPERATOR LYONS (nonalcoholic steatohepatitis) DIFFERENTIAL AUTO Routine 07/30/2024 1:1 0 PM OIL WELL GUN PERFORATOR OPERATOR LYONS (nonalcoholic steatohepatitis) CBC WITH AUTO DIFFERENTIAL Routine 07/30/2024 1:10 PM OIL WELL GUN PERFORATOR OPERATOR LYONS (nonalcoholic steatohepatitis) PROTIME-INR Routine 07/30/2024 1:10 PM OIL WELL GUN PERFORATOR OPERATOR LYONS (nonalcoholic steatohepatitis) HLA ANTIBODY SCREEN - SAB (CLASS I AND CLASS II) Routine 07/20/2024 10:00 AM OIL WELL GUN PERFORATOR OPERATOR ESRD (end stage renal disease) (CMS/HCC) (HCC) HLA ANTIBODY SCREEN BY PRA OR SAB PER SCHEDULE (CLASS I AND CLASS II) Routine 07/20/2024 10:00 AM OIL WELL GUN PERFORATOR OPERATOR ESRD (end stage renal disease) (CMS/HCC) (HCC) SCAN - LABS 07/20/2024 EGFR Routine 06/30/2024 12:36 PM OIL WELL GUN PERFORATOR OPERATOR LYONS (nonalcoholic steatohepatitis) DIFFERENTIAL AUTO Routine 06/30/2024 12: 36 PM OIL WELL GUN PERFORATOR OPERATOR LYONS (nonalcoholic steatohepatitis) CBC WITH AUTO DIFFERENTIAL Routine 06/30/2024 12:36 PM OIL WELL GUN PERFORATOR OPERATOR LYONS (nonalcoholic steatohepatitis) PROTIME-INR Routine 06/30/2024 12:36 PM OIL WELL GUN PERFORATOR OPERATOR LYONS (nonalcoholic steatohepatitis) COMPREHENSIVE METABOLIC PANEL Routine 06/30/2024 12:36 PM OIL WELL GUN PERFORATOR OPERATOR LYONS (nonalcoholic steatohepatitis) PAP AND HIGH RISK HPV, REFLEX TO GENOTYPING Routine 04/28/2024 10:41 AM CDT SCREENING MAMMOGRAM BILATERAL W PAL IP Routine 04/27/2024 1:55 PM CDT LIPID PANEL Routine 04/22/2024 12:58 AM CDT HEPATITIS C ANTIBODY Routine 06/16/2023 6:09 AM OIL WELL GUN PERFORATOR OPERATOR COLONOSCOPY 05/30/2022 9:28 AM CDT ALBUMIN CREATININE RATIO, URINE Routine 03/01/2021 2:45 PM CDT Type 2 diabetes mellitus without complication, unspecified whether terminologist insulin use (HCC) from Last 3 Months or Most Recently Relevant to Health Maintenance Results * SCAN - LABS (09/07/2024) us Provider Scanning Final Result * (ABNORMAL) eGFR (08/27/2024 1:35 PM OIL WELL GUN PERFORATOR OPERATOR) eGFR 31(L) >=60 mL/min/1. 73 m2 Comment: [...] last reviewed 2021. Blood 08/27/2024 1:35 PM OIL WELL GUN PERFORATOR OPERATOR 08/27/2024 1:59 PM OIL WELL GUN PERFORATOR OPERATOR Taiwo Vázquez MD LAB BLOOD ORDERABLES Fin al Result [facility] [place] [address] * (ABNORMAL) Protime-INR (08/27/2024 1:35 PM OIL WELL GUN PERFORATOR OPERATOR) PT 14.1(H) 9.7 - 13.0 sec INR 1.30(H) 0.90 - 1.20 CHARISSA DUNNE Comment: Interpretive data Oral anticoagulant therapeutic ranges: Venous thromboembolism prophylaxis or treatment: 2.0-3.0 CARDIOLOGY Standard range: 2.0-3.0 High-intensity range: 2.5-3.5 Refer to indication-specific guidelines for appropriate target ranges for prosthetic heart valve replacement. Current interpretive data was last revised on 2019. Blood 08/27/2024 1:35 PM OIL WELL GUN PERFORATOR OPERATOR 08/27/2024 1:48 PM OIL WELL GUN PERFORATOR OPERATOR Taiwo Vázquez MD LAB BLOOD ORDERABLES Fin al Result [facility] [place] [address] * (ABNORMAL) Comprehensive metabolic panel (08/27/2024 1:35 PM OIL WELL GUN PERFORATOR OPERATOR) Sodium 136 135 - 145 mmol/L Potassium, pl 3.6 3.3 - 4.9 mmol/L [facility] Chloride 101 97 - 110 mmol/L [facility] CO2 28 22 - 32 mmol/L [facility] Anion gap 7 2 - 15 mmol/L [facility] BUN 29(H) 6 - 25 mg/dL [facility] Creatinine 1.81(H) 0.60 - 1.10 mg/dL [facility] Glucose 293(H) 70 - 199 mg/dL [facility] Comment: Interpretive Data Fasting glucose >/= 126 [...] Bilirubin, total 2.4(H) 0.1 - 1.2 mg/dL [facility] Protein, pl 6.1(L) 6.5 - 8.5 g/dL [facility] Albumin 3.0(L) 3.5 - 5.0 g/dL [facility] Alk phos 100 40 - 130 Units/L [facility] ALT 21 7 - 45 Units/L [facility] AST 31 10 - 45 Units/L [facility] Blood 08/27/2024 1:35 PM OIL WELL GUN PERFORATOR OPERATOR 08/27/2024 1:48 PM OIL WELL GUN PERFORATOR OPERATOR Taiwo Vázquez MD LAB BLOOD ORDERABLES Fin al Result [facility] [place] [address] * HLA Antibody Screen by PRA or SAB per Schedule (Class I and Class II) (08/24/2024 10:00 AM OIL WELL GUN PERFORATOR OPERATOR) Blood 08/24/2024 10:0 0 AM OIL WELL GUN PERFORATOR OPERATOR Narrative HISTOTR[facility] - OIL WELL GUN PERFORATOR OPERATOR Sample received in lab and stored. No testing performed at this time. Timothy Pardo MD LAB BLOOD ORDERABL ES Final Result Performing Organization Address [facility] Co de Phone Number HISTOTR[facility] * SCAN - LABS (08/24/2024) Provider Scanning Final Result * (ABNORMAL) Urinalysis reflex to microscopic and culture Urine (08/06/2024 5:12 PM OIL WELL GUN PERFORATOR OPERATOR) Color, ur Straw Yellow Clarity, ur Clear [...] tendency for uric acid stone formation. Source: [place] [facility] Current Interpretive Data was last revised on [...] performed. CHARISSA [facility] Urine 08/06/2024 5:12 PM OIL WELL GUN PERFORATOR OPERATOR 08/06/2024 5:24 PM OIL WELL GUN PERFORATOR OPERATOR Taiwo Vázquez MD LAB MICROBIOLOGY - GENER AL ORDERABLES Final Result Performing Organization Address [facility] Clinic/[facility] Co de Phone Number CHARISSA SOLER [phone] [employer] [address] * (ABNORMAL) Urinalysis, microscopic only (08/06/2024 5:12 PM OIL WELL GUN PERFORATOR OPERATOR) WBC, ur 6-10(A) 0 - 5 /HPF RBC, ur 3-5(A) 0 - 2 /HPF [facility] Epithelial cells, squamous, ur 1-5 0 - 5 /HPF [facility] Mucous, ur Present(A) [facility] Hyaline casts, ur 11-20(A) 0 - 10 /LPF [facility] Culture Reflex Comment Reflex conditions for urine culture (WBC >10) not met. CHARISSA [facility] Urine 08/06/2024 5:12 PM OIL WELL GUN PERFORATOR OPERATOR 08/06/2024 5:24 PM OIL WELL GUN PERFORATOR OPERATOR Taiwo Vázquez MD LAB URINE ORDERABLES Fin al Result Performing Organization Address [facility]/ZIP Co de Phone Number CHARISSA SOLER [phone] [place] [address] * (ABNORMAL) eGFR (08/06/2024 5:04 PM OIL WELL GUN PERFORATOR OPERATOR) eGFR 34(L) >=60 mL/min/1. 73 m2 Comment: [...] last reviewed 2021. Blood 08/06/2024 5:04 PM OIL WELL GUN PERFORATOR OPERATOR 08/06/2024 5:24 PM OIL WELL GUN PERFORATOR OPERATOR us Taiwo Vázquez MD LAB BLOOD ORDERABLES Fin al Result [facility] [address] [facility]. [place] [address] * (ABNORMAL) Differential, auto (08/06/2024 5:04 PM OIL WELL GUN PERFORATOR OPERATOR) Neutrophil abs 2.8 1.5 - 6.5 K/cumm Imm gran abs 0.0 0.0 - 0.1 K/cumm [facility] Lymphocyte abs 1.3 0.8 - 3.3 K/cumm CHARISSA [facility] Monocyte abs 0.5 0.2 - 0.8 K/cumm [facility] Eosinophil abs 0.9(H) 0.0 - 0.5 K/cumm [facility] Basophil abs 0.0 0.0 - 0.1 K/cumm CHARISSA [facility] Neutrophil pct 50.9 % CHARSISA ELIAS Comment: Interpretive Data Percent cell count [...] on 2017. Lymphocyte pct 23.9 % [facility] Comment: Interpretive Data Percent cell count reference ranges are not reported, since discordance with absolute values may lead to misinterpretation of CBC data. Current Interpretive Data was last revised on 2017. Monocyte pct 8.2 % [facility] Comment: Interpretive Data Percent cell count reference ranges are not reported, since discordance with absolute values may lead to misinterpretation of CBC data. Current Interpretive Data was last revised on 2017. Eosinophil pct 16.2 % [facility] Comment: Interpretive Data Percent cell count reference ranges are not reported, since discordance with absolute values may lead to misinterpretation of CBC data. Current Interpretive Data was last revised on 2017. Basophil pct 0.4 % [facility] Comment: Interpretive Data Percent cell count reference ranges are not reported, since discordance with absolute values may lead to misinterpretation of CBC data. Current Interpretive Data was last revised on 2017. Blood 08/06/2024 5:04 PM OIL WELL GUN PERFORATOR OPERATOR 08/06/2024 5:24 PM OIL WELL GUN PERFORATOR OPERATOR us Taiwo Vázquez MD LAB BLOOD ORDERABLES Fin al Result CHARISSA DUNNEWCH [address] [facility]. Department of Laboratories [place], [place] [id number] * (ABNORMAL) CBC with auto differential (08/06/2024 5:04 PM OIL WELL GUN PERFORATOR OPERATOR) Pathologist [facility] WBC 5.5 3.8 - 9.9 K/cumm Hgb 12.3 11.9 - 15.5 g/dL CHARISSA [facility] Hct 35.1(L) 35.6 - 45.5 % [facility] Plt 77(L) 150 - 400 K/cumm [facility] MPV 11.6 9.1 - 12.3 fL [facility] RBC 3.82(L) 3.90 - 5.20 M/cumm [facility] MCV 91.9 81.3 - 96.4 fL CHARISSA ELIAS MCH 32.2 27.1 - 33.3 pg CHARISSA ELIAS MCHC 35.0 32.3 - 35.7 g/dL CHARISSA ELIAS RDW CV 15.7(H) 11.1 - 14.9 % CHARISSA ELIAS RDW SD 52.0(H) 35.7 - 48.1 fL CHARISSA ELIAS NRBC abs 0.00 0.00 - 0.01 K/cumm [facility] Blood 08/06/2024 5:04 PM OIL WELL GUN PERFORATOR OPERATOR 08/06/2024 5:24 PM OIL WELL GUN PERFORATOR OPERATOR us Taiwo áVzquez MD LAB BLOOD ORDERABLES Fin al Result CHARISSA ELIAS [address] [facility]. [place] [place] [address] * [id number], Tumor Marker (08/06/2024 5:04 PM OIL WELL GUN PERFORATOR OPERATOR) alpha Fetoprotein <1.8 <=8.3 ng/mL Comment: Interpretive [...] 2018;[id number] Katya House et al. Clin Chem 2014;[id number]. Current interpretive data was last revised 2022. Testing performed by: [facility], [address] [place] [address], [place]., [address] Blood 08/06/2024 5:04 PM OIL WELL GUN PERFORATOR OPERATOR 08/06/2024 8:14 PM OIL WELL GUN PERFORATOR OPERATOR Taiwo Vázquez MD LAB BLOOD ORDERABLES Fin al Result Performing Organization Address [facility] de Phone Number CHARISSA DUNNECH [address] [facility] [place] [employer] [address] * Blood culture Blood (08/06/2024 5:04 PM OIL WELL GUN PERFORATOR OPERATOR) Report Final Report: No growth Comment:Testing performed by : [facility], [address] [place] [address]., [id number] Blood 08/06/2024 5:04 PM OIL WELL GUN PERFORATOR OPERATOR 08/07/2024 12:05 PM OIL WELL GUN PERFORATOR OPERATOR Narrative CHARISSA [facility] - 08/12/2024 1:01 PM OIL WELL GUN PERFORATOR OPERATOR Interpretive Data 1. Blood cultures are incubated and monitored continuously for 5 days (120 hours). The first negative report is issued within 24 hours of receipt in the laboratory. 2. All positive cultures are resulted and called to physicians/care providers as soon as they are detected. 3. A rapid molecular test for organism identification may be performed using the [employer] Blood Culture Identification panel. This assay detects microbial DNA in a blood culture broth. This assay has been cleared by the [place] Food and Drug Administration and its performance characteristics have been verified by the [facility] Microbiology Laboratory. Interpretive data was last revised on September 13, 2022. Taiwo Vázquez MD LAB MICROBIOLOGY - GENER AL ORDERABLES Final Result Performing Organization Address [facility] de Phone Number CHARISSA [facility] [id number] [facility]. [facility] [place] [address] * (ABNORMAL) Protime-INR (08/06/2024 5:04 PM OIL WELL GUN PERFORATOR OPERATOR) PT 14.1(H) 9.7 - 13.0 sec INR 1.30(H) 0.90 - 1.20 CHARISSA DUNNEWCH Comment: Interpretive data Oral anticoagulant therapeutic ranges: Venous thromboembolism prophylaxis or treatment: 2.0-3.0 CARDIOLOGY Standard range: 2.0-3.0 High-intensity range: 2.5-3.5 Refer to indication-specific guidelines for appropriate target ranges for prosthetic heart valve replacement. Current interpretive data was last revised on 2019. Blood 08/06/2024 5:04 PM OIL WELL GUN PERFORATOR OPERATOR 08/06/2024 5:24 PM OIL WELL GUN PERFORATOR OPERATOR Taiwo Vázquez MD LAB BLOOD ORDERABLES Fin al Result Performing Organization Address [facility] de Phone Number [facility] [address] [facility]. [facility] [place] [address] * (ABNORMAL) Hemoglobin A1c (08/06/2024 5:04 PM OIL WELL GUN PERFORATOR OPERATOR) Hgb A1C 8.4(H) 4.0 - 5.6 % Estimated Average Glucose 194 mg/dL CHARISSA ELIAS Comment: The ADA recommends reporting an estimated Average Glucose (eAG) with all Hemoglobin A1c results using the equation derived from a study of 507 normal and diabetic adults. Minority populations were underrepresented and children were not included. (Diabetes Care 31:2906-2442, 2008). The eAG is not equivalent to a fasting glucose. Blood 08/06/2024 5:04 PM OIL WELL GUN PERFORATOR OPERATOR 08/06/2024 5:24 PM OIL WELL GUN PERFORATOR OPERATOR Taiwo Vázquez MD LAB BLOOD ORDERABLES Fin al Result Performing Organization Address [facility] de Phone Number [facility] [address] [facility]. [facility] [place] [address] * (ABNORMAL) Bilirubin, direct (08/06/2024 5:04 PM OIL WELL GUN PERFORATOR OPERATOR) Bilirubin, direct 0.6(H) 0.1 - 0.3 mg/dL Blood 08/06/2024 5:04 PM OIL WELL GUN PERFORATOR OPERATOR 08/06/2024 5:24 PM OIL WELL GUN PERFORATOR OPERATOR Taiwo Vázquez MD LAB BLOOD ORDERABLES Fin al Result Performing Organization Address [facility] de Phone Number [facility] [address] [address]. [place] [address] * (ABNORMAL) Comprehensive metabolic panel (08/06/2024 5:04 PM OIL WELL GUN PERFORATOR OPERATOR) Sodium 134(L) 135 - 145 mmol/L Potassium, [...] Units/L [facility] Blood 08/06/2024 5:04 PM OIL WELL GUN PERFORATOR OPERATOR 08/06/2024 5:24 PM OIL WELL GUN PERFORATOR OPERATOR Taiwo Vázquez MD LAB BLOOD ORDERABLES Fin al Result CHARISSA DUNNECH [address] [facility]. [place] [address] * SCAN - LABS (08/03/2024) us Provider Scanning Final Result * (ABNORMAL) eGFR (07/30/2024 1:25 PM OIL WELL GUN PERFORATOR OPERATOR) eGFR 36(L) >=60 mL/min/1. 73 m2 Comment: [...] last reviewed 2021. Blood 07/30/2024 1:25 PM OIL WELL GUN PERFORATOR OPERATOR 07/30/2024 1:39 PM OIL WELL GUN PERFORATOR OPERATOR Taiwo Vázquez MD LAB BLOOD ORDERABLES Fin al Result CHARISSA DUNNE [facility] Department [place] [address] * (ABNORMAL) Comprehensive metabolic panel (07/30/2024 1:25 PM OIL WELL GUN PERFORATOR OPERATOR) Sodium 133(L) 135 - 145 mmol/L Potassium, pl 4.5 3.3 - 4.9 mmol/L [facility] Chloride 96(L) 97 - 110 mmol/L [facility] CO2 29 22 - 32 mmol/L [facility] Anion gap 8 2 - 15 mmol/L [facility] BUN 31(H) 6 - 25 mg/dL [facility] Creatinine 1.59(H) 0.60 - 1.10 mg/dL [facility] Glucose 327(H) 70 - 199 mg/dL [facility] Comment: Interpretive Data Fasting glucose >/= 126 [...] 2022. Calcium 9.7 8.5 - 10.3 mg/dL [facility] Bilirubin, total 2.2(H) 0.1 - 1.2 mg/dL [facility] Protein, pl 6.6 6.5 - 8.5 g/dL [facility] Albumin 3.2(L) 3.5 - 5.0 g/dL [facility] Alk phos 117 40 - 130 Units/L [facility] ALT 36 7 - 45 Units/L [facility] AST 42 10 - 45 Units/L [facility] Blood 07/30/2024 1:25 PM OIL WELL GUN PERFORATOR OPERATOR 07/30/2024 1:36 PM OIL WELL GUN PERFORATOR OPERATOR us Taiwo Vázquez MD LAB BLOOD ORDERABLES Fin al Result [facility] Department [place] [address] * (ABNORMAL) Differential, auto (07/30/2024 1:10 PM OIL WELL GUN PERFORATOR OPERATOR) Neutrophil abs 2.8 1.5 - 6.5 K/cumm Imm gran abs 0.0 0.0 - 0.1 K/cumm [facility] Lymphocyte abs 1.1 0.8 - 3.3 K/cumm [facility] Monocyte abs 0.5 0.2 - 0.8 K/cumm [facility] Eosinophil abs 0.8(H) 0.0 - 0.5 K/cumm [facility] Basophil abs 0.0 0.0 - 0.1 K/cumm [facility] Neutrophil pct 52.8 % [facility] Comment: Interpretive Data Percent cell count reference ranges are not reported, since discordance with absolute values may lead to misinterpretation of CBC data. Current Interpretive Data was last revised on 2017. Imm gran pct 0.2 % [facility] Comment: Interpretive Data Percent cell count reference ranges are not reported, since discordance with absolute values may lead to misinterpretation of CBC data. Current Interpretive Data was last revised on 2017. Lymphocyte pct 21.2 % [facility] Comment: Interpretive Data Percent cell count reference ranges are not reported, since discordance with absolute values may lead to misinterpretation of CBC data. Current Interpretive Data was last revised on 2017. Monocyte pct 10.1 % [facility] Comment: Interpretive Data Percent cell count reference ranges are not reported, since discordance with absolute values may lead to misinterpretation of CBC data. Current Interpretive Data was last revised on 2017. Eosinophil pct 14.9 % [facility] Comment: Interpretive Data Percent cell count reference ranges are not reported, since discordance with absolute values may lead to misinterpretation of CBC data. Current Interpretive Data was last revised on 2017. Basophil pct 0.8 % [facility] Comment: Interpretive Data Percent cell count reference ranges are not reported, since discordance with absolute values may lead to misinterpretation of CBC data. Current Interpretive Data was last revised on 2017. Blood 07/30/2024 1:10 PM OIL WELL GUN PERFORATOR OPERATOR 07/30/2024 1:36 PM OIL WELL GUN PERFORATOR OPERATOR us Taiwo Vázquez MD LAB BLOOD ORDERABLES Fin al Result [facility] Department [place] [address] * (ABNORMAL) CBC with auto differential (07/30/2024 1:10 PM OIL WELL GUN PERFORATOR OPERATOR) Pathologist [facility] WBC 5.2 3.8 - 9.9 K/cumm Hgb 12.6 11.9 - 15.5 g/dL [facility] Hct 37.1 35.6 - 45.5 % [facility] Plt 64(L) 150 - 400 K/cumm [facility] MPV 12.3 9.1 - 12.3 fL [facility] RBC 4.07 3.90 - 5.20 M/cumm [facility] MCV 91.2 81.3 - 96.4 fL [facility] MCH 31.0 27.1 - 33.3 pg [facility] MCHC 34.0 32.3 - 35.7 g/dL [facility] RDW CV 15.4(H) 11.1 - 14.9 % [facility] RDW SD 51.0(H) 35.7 - 48.1 fL [facility] NRBC abs 0.00 0.00 - 0.01 K/cumm [facility] Blood 07/30/2024 1:10 PM OIL WELL GUN PERFORATOR OPERATOR 07/30/2024 1:36 PM OIL WELL GUN PERFORATOR OPERATOR Taiwo Vázquez MD LAB BLOOD ORDERABLES Fin al Result [facility] Department [place] [address] * (ABNORMAL) Protime-INR (07/30/2024 1:10 PM OIL WELL GUN PERFORATOR OPERATOR) Pathologist [facility] PT 15.1(H) 9.7 - 13.0 sec INR 1.39(H) 0.90 - 1.20 [facility] Comment: Interpretive data Oral anticoagulant therapeutic ranges: Venous thromboembolism prophylaxis or treatment: 2.0-3.0 CARDIOLOGY Standard range: 2.0-3.0 High-intensity range: 2.5-3.5 Refer to indication-specific guidelines for appropriate target ranges for prosthetic heart valve replacement. Current interpretive data was last revised on 2019. Blood 07/30/2024 1:10 PM OIL WELL GUN PERFORATOR OPERATOR 07/30/2024 1:36 PM OIL WELL GUN PERFORATOR OPERATOR us Taiwo Vázquez MD LAB BLOOD ORDERABLES Fin al Result CHARISSA SAHNI [facility] [place] [address] * HLA Antibody Screen by PRA or SAB per Schedule (Class I and Class II) (07/20/2024 10:00 AM OIL WELL GUN PERFORATOR OPERATOR) Blood 07/20/2024 10:0 0 AM OIL WELL GUN PERFORATOR OPERATOR Narrative [facility] - OIL WELL GUN PERFORATOR OPERATOR Sample received in lab. Single Antigen Antibody Screen ordered. us Timothy Pardo MD LAB BLOOD ORDERABL ES Final Result [facility] * HLA Antibody Screen - SAB (Class I and Class II) (07/20/2024 10:00 AM OIL WELL GUN PERFORATOR OPERATOR) Class I Treatment EDTA [facility] Class I [...] DR12, DR52 [facility] 07/20/2024 10:0 0 AM OIL WELL GUN PERFORATOR OPERATOR 07/23/2024 10:09 AM OIL WELL GUN PERFORATOR OPERATOR Narrative [facility] - 07/23/2024 10:09 AM OIL WELL GUN PERFORATOR OPERATOR Single-antigen HLA antibody screen is performed on serum samples using a method developed and validated by the [facility] HLA laboratory based on an FDA-approved IVD kit (LABScreen Single-Antigen, [employer], [place], [place]). All patient serum samples are pretreated with EDTA before the screen to prevent complement interference. Additional serum treatments, such as adsorption and DTT treatment, may be performed as indicated. Interpretive comments: Low risk: MFI [id number]. Moderate risk: MFI [id number]. Increased risk: MFI >/= 5000. The presence [...] antigens to avoid. Testing performed at the [facility], [address] [place] [address], 5th floor, [place], [address]. IA # [id number]. Rani Smith, Ph.D., Blankbook Stitching Machine Operator, HLA Laboratory Aurelio Palafox M.D., Ph.D., Long Term Care Phlebotomist, HLA Laboratory Norma Talamantes, Ph.D., CLIA Long Term Care Phlebotomist, [facility] Clinical Laboratories Current methodology and interpretive comments last revised on 09/06/2022. us Timothy Pardo MD LAB BLOOD ORDERABL ES Final Result Performing Organization Address [facility]/ZIP Co de Phone Number [facility] * SCAN - LABS (07/20/2024) Provider Scanning Edited Result - Final * (ABNORMAL) eGFR (06/30/2024 12:36 PM OIL WELL GUN PERFORATOR OPERATOR) eGFR 32(L) >=60 mL/min/1. 73 m2 Comment: [...] reviewed 2021. Blood 06/30/2024 12:3 6 PM OIL WELL GUN PERFORATOR OPERATOR 06/30/2024 1:06 PM OIL WELL GUN PERFORATOR OPERATOR Taiwo Vázquez MD LAB BLOOD ORDERABLES Fin al Result [facility] Department [place] [address] * (ABNORMAL) Differential, auto (06/30/2024 12:36 PM OIL WELL GUN PERFORATOR OPERATOR) Neutrophil abs 2.7 1.5 - 6.5 K/cumm Imm gran abs 0.0 0.0 - 0.1 K/cumm CHARISSA [facility] Lymphocyte abs 1.0 0.8 - 3.3 K/cumm [facility] Monocyte abs 0.5 0.2 - 0.8 K/cumm [facility] Eosinophil abs 0.7(H) 0.0 - 0.5 K/cumm [facility] Basophil abs 0.0 0.0 - 0.1 K/cumm [facility] Neutrophil pct 54.6 % [facility] Comment: Interpretive Data Percent cell count reference ranges are not reported, since discordance with absolute values may lead to misinterpretation of CBC data. Current Interpretive Data was last revised on 2017. Imm gran pct 0.2 % [facility] Comment: Interpretive Data Percent cell count reference ranges are not reported, since discordance with absolute values may lead to misinterpretation of CBC data. Current Interpretive Data was last revised on 2017. Lymphocyte pct 21.3 % [facility] Comment: Interpretive Data Percent cell count reference ranges are not reported, since discordance with absolute values may lead to misinterpretation of CBC data. Current Interpretive Data was last revised on 2017. Monocyte pct 10.0 % [facility] Comment: Interpretive Data Percent cell count reference ranges are not reported, since discordance with absolute values may lead to misinterpretation of CBC data. Current Interpretive Data was last revised on 2017. Eosinophil pct 13.5 % [facility] Comment: Interpretive Data Percent cell count reference ranges are not reported, since discordance with absolute values may lead to misinterpretation of CBC data. Current Interpretive Data was last revised on 2017. Basophil pct 0.4 % [facility] Comment: Interpretive Data Percent cell count reference ranges are not reported, since discordance with absolute values may lead to misinterpretation of CBC data. Current Interpretive Data was last revised on 2017. Blood 06/30/2024 12:3 6 PM OIL WELL GUN PERFORATOR OPERATOR 06/30/2024 12:59 PM OIL WELL GUN PERFORATOR OPERATOR us Taiwo Vázquez MD LAB BLOOD ORDERABLES Fin al Result [facility] Department [place] [address] * (ABNORMAL) CBC with auto differential (06/30/2024 12:36 PM OIL WELL GUN PERFORATOR OPERATOR) Pathologist [facility] WBC 4.9 3.8 - 9.9 K/cumm Hgb 12.5 11.9 - 15.5 g/dL [facility] Hct 37.3 35.6 - 45.5 % [facility] Plt 59(L) 150 - 400 K/cumm [facility] MPV 11.7 9.1 - 12.3 fL [facility] RBC 4.02 3.90 - 5.20 M/cumm [facility] MCV 92.8 81.3 - 96.4 fL [facility] MCH 31.1 27.1 - 33.3 pg [facility] MCHC 33.5 32.3 - 35.7 g/dL [facility] RDW CV 15.4(H) 11.1 - 14.9 % [facility] RDW SD 52.5(H) 35.7 - 48.1 fL [facility] NRBC abs 0.00 0.00 - 0.01 K/cumm [facility] Blood 06/30/2024 12:3 6 PM OIL WELL GUN PERFORATOR OPERATOR 06/30/2024 12:59 PM OIL WELL GUN PERFORATOR OPERATOR us Taiwo Vázquez MD LAB BLOOD ORDERABLES Fin al Result [facility] Department [place] [address] * (ABNORMAL) Protime-INR (06/30/2024 12:36 PM OIL WELL GUN PERFORATOR OPERATOR) Pathologist [facility] PT 13.4(H) 9.7 - 13.0 sec INR 1.24(H) 0.90 - 1.20 [facility] Comment: Interpretive data Oral anticoagulant therapeutic ranges: Venous thromboembolism prophylaxis or treatment: 2.0-3.0 CARDIOLOGY Standard range: 2.0-3.0 High-intensity range: 2.5-3.5 Refer to indication-specific guidelines for appropriate target ranges for prosthetic heart valve replacement. Current interpretive data was last revised on 2019. Blood 06/30/2024 12:3 6 PM OIL WELL GUN PERFORATOR OPERATOR 06/30/2024 12:59 PM OIL WELL GUN PERFORATOR OPERATOR us Taiwo Vázquez MD LAB BLOOD ORDERABLES Fin al Result [facility] Department [place] [address] * (ABNORMAL) Comprehensive metabolic panel (06/30/2024 12:36 PM OIL WELL GUN PERFORATOR OPERATOR) Sodium 135 135 - 145 mmol/L Potassium, pl 4.4 3.3 - 4.9 mmol/L [facility] Chloride 100 97 - 110 mmol/L [facility] CO2 28 22 - 32 mmol/L [facility] Anion gap 7 2 - 15 mmol/L [facility] BUN 28(H) 6 - 25 mg/dL [facility] Creatinine 1.77(H) 0.60 - 1.10 mg/dL [facility] Glucose 199 70 - 199 mg/dL [facility] Comment: Interpretive Data Fasting glucose >/= 126 [...] Bilirubin, total 2.0(H) 0.1 - 1.2 mg/dL [facility] Protein, pl 6.4(L) 6.5 - 8.5 g/dL [facility] Albumin 3.2(L) 3.5 - 5.0 g/dL [facility] Alk phos 115 40 - 130 Units/L [facility] ALT 36 7 - 45 Units/L [facility] AST 39 10 - 45 Units/L [facility] Blood 06/30/2024 12:3 6 PM OIL WELL GUN PERFORATOR OPERATOR 06/30/2024 12:59 PM OIL WELL GUN PERFORATOR OPERATOR us Taiwo Vázquez MD LAB BLOOD ORDERABLES Fin al Result CHARISSA [facility] Department [place] [address] * Pap and High Risk HPV and Genotyping (Cytology Component) (04/28/2024 10:41 AM CDT) Thin prep (Pap test) 04/28/2024 10:41 AM CDT 04/28/2024 1:00 PM CDT Narrative PATHOLOGY [facility] - 05/04/2024 4:21 PM CDT EPIC results best viewed via link to PDF [facility] [place] [address] Note to Patients: This report may contain [...] Gender: Michelle : 1960 (Age: 63) Address: [address] [place] [address] Hospital #: [id number] Service: Medical Location: [place] [address] Patient Type: [facility] Inpatient Taken: [...] this test have been verified by the [facility] Molecular Infectious Disease laboratory. Correlate with [...] clinical information and biopsy results as indicated. [facility] Clinical Laboratory Improvement Amendments (CLIA) mandate that cytologic and histologic results be correlated for laboratory supplier quality specialist & improvement standards. FOR ALL HIGH-GRADE CASES [...] determined by the Surgical Pathology Department at [facility] as part of an ongoing aircraft quality control inspector program and in compliance with federally [...] determined by the Surgical Pathology Department of [facility] [facility] It has not been cleared or approved by the U. S. Food and Drug Administration. Eladio Carey MD LAB CYTOLOGY ORDERABLES Final Result PATHOLOGY [facility] 3rd Floor [place], [place] [phone] * Screening Mammogram Bilateral W Pal (04/27/2024 1:55 PM CDT) Anatomical Region Laterality Modality Breast Bilateral Mammography Narrative 04/27/2024 1:52 PM CDT Mammogram Technique: Bilateral Digital Breast Tomosynthesis, Bilateral C-view 2D Screening mammogram. Views obtained: bilateral craniocaudal and bilateral mediolateral oblique. Computer Aided Detection was performed. Mammogram Findings: The present examination has been compared to prior imaging studies performed at [facility] on 05/15/2021 and 12/06/2021. There are [...] compared to prior imaging studies performed at [facility] on 05/15/2021 and 12/06/2021. There are [...] revised on 2018. Triglycerides 43 <=149 mg/dL [facility] Comment: Interpretive Data Ages < or [...] revised on 2018. HDL 64 >=40 mg/dL [facility] Comment: Interpretive Data Ages < or [...] revised on 2024. Non-HDL Cholesterol 58 mg/dL [facility] Comment: Interpretive Data Ages [...] last revised on 2018. Chol/HDL ratio 2 [facility] Blood 04/22/2024 12:5 8 AM CDT 04/22/2024 3:00 AM CDT John Paul Reddy MD LAB BLOOD ORDERABLES Final Resul t Performing Organization Address City/State/[facility] Co de Phone Number CHARISSA [facility] Department [place] [address] * Hepatitis C antibody Blood (06/16/2023 6:09 AM OIL WELL GUN PERFORATOR OPERATOR) Hep C Ab Nonreactive Nonreactive [facility] Comment:Antibodies to HCV no t detected. Does NOT exclude the possibility of recent exposure to HCV. Current interpretive data was last revised on 22 Blood 06/16/2023 6:09 AM OIL WELL GUN PERFORATOR OPERATOR 06/16/2023 6:35 AM OIL WELL GUN PERFORATOR OPERATOR Alejandro Frazier MD LAB MICROBIOLOGY - GENERAL ORDERABLES Final Result Performing Organization Address [facility] Co de Phone Number CHARISSA [facility] [place] [address] * COLONOSCOPY (05/30/2022 9:28 AM CDT) Anatomical Region Laterality Modality Other Narrative Procedure Note Pat Robins MD - 05/30/2022 9:28 AM CDT GI ENDOSCOPY [facility] Patient Name: Aleah Levine Procedure Date: 05/30/2022 9:28 AM Date of : 1960 Admit Type: Outpatient Age: 61 Gender: Female Attending MD: Pta Robins M.D. Room: [facility] ENDOSCOPY ROOM 3 Note Status: Finalized [...] The scope was passed under direct vision.The [facility] [id number] endoscope was introducedthrough the anus and [...] On: 05/30/2022 9:28 AM Recognized by the [place] [employer] for promoting quality in endoscopy Pat Robins MD ENDOSCOPY PROCEDURES Ju l Result * Albumin Creatinine Ratio, Urine (03/01/2021 2:45 PM CDT) Albumin Ur <12.0 mg/L [facility] Comment: Interpretive Data No reference range established. Current interpretive data was last revised 2018. Creatinine Ur 59.5 mg/dL [facility] Comment: Interpretive Data No reference range established. Current interpretive data was last revised 2018. Albumin Creatinine Ratio, Ur <20 1 - 29 mg/g [facility] Urine 03/01/2021 2:45 PM CDT 03/01/2021 3:41 PM CDT Oly Baker MD LAB URINE ORDER [place] Final Result CHARISSA [facility] [place] [address] from Last 3 Months or Most Recently Relevant to Health Maintenance Insurance [facility] EPO [employer] [place] ANTH ACCESS [employer] OOS [facility] TRANSPLANT [employer] MEDICARE SOLUTIONS MEDICARE SOLUTIONS TRANSPLANT [employer] MEDICARE RISK TRANSPLANT [employer] MEDICARE RISK TRANSPLANT [employer] MED[employer]ARE RISK Advance Directives For more information, please contact: [phone] * Full Code (Latest Code Status on [...] 3:22 PM 01/03/2023 6:29 PM Care Teams Manufacturing Support Engineer Relationship Specialty Start Date End Date Maddy Romano MD [address] [place] [address] PCP - General 09/28/16 Manas Ibarra MD [address] [place], [place] [address] Referring Physician Thoracic Surgery 11/05/18 Zion Barton MD [address] [place], [place] [address] Radiation Oncologist Radiation Oncology 05/05/19 Molina Charles MD 1 [facility] [address] [place] [address] Referring Physician Transplant Hepatology 12/15/20 Inés Lemus, TYRA [address] [facility] [address] [place] [address] Over Short And Damage Clerk 10/31/21 Karuna Maria OT Occupational Therapist Occupational Therapy 09/20/22 Renu Treviño NP [address] [facility] [address] [place] [address] Nurse Practitioner Radiation Oncology 11/08/22 Eladio Mcrae MD [address] [place] [address] Referring Physician Obstetrics and Gynecology 11/15/22 Tamiko Schroeder, TYRA [address] [place], [place] [address] Over Short And Damage Clerk 04/27/24
--- OUTSIDE RECORDS SUMMARY | 2024-09-24 03:47 | XMS_ITS ---
Author Organization [facility] Address [address] [place] [address] Care Team Providers Care Repairer General Name Role Phone Maddy Romano MD Primary Care Provider [phone] Manas Ibarra MD Unavailable Zion Barton MD Unavailable Molina Charles MD Unavailable [phone] Inés Lemus RN Unavailable [phone] Karuna Maria OT Unavailable Unavaila Renu Paul NP Unavailable [phone] Eladio Mcrae MD Unavailable [phone] Tamiko Schroeder RN Unavailable [phone] Transplant Episode Kidney Candidate [facility] ([place], [place]) [facility] Center waitlisted on 05/07/2024 Marked as Inactive on 05/26/2024 Reason: Candidate requires multi-organ [place] only, isolated offers not accepted Kidney CoordinatorTamiko Schroeder RN Email: N/A Scores Score Value Updated Exceptions/Reas ons CPRA Not available EPTS (Calc) 55 09/24/2024 [place] Organ Diagnosis Organ Primary Contributory Kidney Other, Specify - 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
--- OUTSIDE RECORDS SUMMARY | 2024-09-24 03:47 | XMS_ITS | Clinical Summary ---
Author Organization [facility] Address [address] [place] [address] Care Team Providers Care Bulk Pallet Builder Name Role Phone Maddy Romano MD Primary Care Provider [phone] Active Problems Problem Noted Date Diagnosed Date [...] patient's age to complete this topic Insurance [facility] [place] [id number] Care Teams Bulk Pallet Builder Relationship Specialty Start Date End Date Maddy Romano MD [address] [place] [address] PCP - General INTERNAL MEDICINE 01/16/23
--- OUTSIDE RECORDS SUMMARY | 2024-09-24 03:47 | XMS_ITS | Encounter Summary ---
Author Organization [facility] Address [address] [place] [address] Phone Care Team Providers Care Certified Medical Transcriptionist Name Role Phone Maddy Romano MD Primary Care Provider Astrid Haq NP Unavailable [phone] Manas Ibarra MD Unavailable Zion Barton MD Unavailable Molina Charles MD Unavailable [phone] Inés Lemus RN Unavailable [phone] Karuna Maria OT Unavailable Unavaila Renu Paul NP Unavailable Eladio Mcrae MD Unavailable Tamiko Schroeder RN Unavailable [phone] Briana Poe RN Unavailable Encounter Details Date Type Department Care Team (Late st Contact Info) Description 12/25/2019 Orders Only [facility] Scanning, Provider Social History Tobacco Use Types Packs/Day Years Used Date Smoking Tobacco: Former Cigarettes Q uit: 2010 Smokeless Tobacco: Never Comments No Sex and Gender Information Value Date Recorded Sex Assigned at Not on file 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 Gender Identity Female 11/15/2021 2:30 AM CDT [...] documented as of this encounter Care Teams Certified Medical Transcriptionist Relationship Specialty Start Date End Date Maddy Romano MD [address] [place] [address] PCP - General 09/28/16 Astrid Haq NP [address] [place] [address] Nurse Practitioner Radiation Oncology 11/05/18 11/07/22 Manas Ibarra MD [address] [place] [address] Referring Physician Thoracic Surgery 11/05/18 Zion Barton MD [address] [place] [address] Radiation Oncologist Radiation Oncology 05/05/19 Molina Charles MD [address] [place] [address] [address] [place] [address] Referring Physician Transplant Hepatology 12/15/20 Inés Lemus, RN [address] [facility] [address] [place] [address] Grievance Coordinator 10/31/21 Karuna Maria OT Occupational Therapist Occupational Therapy 09/20/22 Renu Treviño NP [address] [facility] [address] [place] [address] Nurse Practitioner Radiation Oncology 11/08/22 Eladio Mcrae MD [address] [place] [address] Referring Physician Obstetrics and Gynecology 11/15/22 Tamiko Schroeder RN [address] [place] [address] Grievance Coordinator 04/27/24 Briana Poe, RN [address] [place] [id number] [facility] Outpatient Padding Gluer 04/30/24 05/28/24 documented as of this encounter
--- OUTSIDE RECORDS SUMMARY | 2024-09-24 03:47 | XMS_ITS | Encounter Summary ---
Author Organization [facility] Address [address] [place] [address] Phone Care Team Providers Care Trauma Coordinator Name Role Phone Maddy Romano MD Primary Care Provider Astrid Haq NP Unavailable Manas Ibarra MD Unavailable Zion Barton MD Unavailable Molina Charles MD Unavailable [phone] Inés Lemus RN Unavailable [phone] Karuna Maria OT Unavailable Unavaila Renu Paul NP Unavailable Eladio Mcrae MD Unavailable [phone] Tamiko Schroeder RN Unavailable [phone] Briana Poe RN Unavailable [phone] Encounter Details Date Type Department Care Team (Late st Contact Info) Description 06/16/2021 Orders Only [facility] Scanning, Provider Social History Tobacco Use Types Packs/Day Years Used Date Smoking Tobacco: Former Cigarettes Q uit: 2010 Smokeless Tobacco: Never Comments No Sex and Gender Information Value Date Recorded Sex Assigned at Not on file 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 Female 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 Gender Identity Female 11/15/2021 2:30 AM CDT [...] documented as of this encounter Care Teams Trauma Coordinator Relationship Specialty Start Date End Date Maddy Romano MD [address] [place] [address] PCP - General 09/28/16 Astrid Haq NP [address] [place] [address] Nurse Practitioner Radiation Oncology 11/05/18 11/07/22 Manas Ibarra MD [address] [place] [address] Referring Physician Thoracic Surgery 11/05/18 Zion Barton MD [address] [place] [address] Radiation Oncologist Radiation Oncology 05/05/19 Molina Charles MD [address] [facility] [address] [place] [address] Referring Physician Transplant Hepatology 12/15/20 Inés Lemus RN [address] [place] [address] Grinder Chipper 10/31/21 Karuna Maria OT Occupational Therapist Occupational Therapy 09/20/22 Renu Treviño NP [address] [facility] [address] [place] [address] Nurse Practitioner Radiation Oncology 11/08/22 Eladio Mcrae MD [address] [place], [place] [address] Referring Physician Obstetrics and Gynecology 11/15/22 Tamiko Schroeder RN [address] [place] [address] Grinder Chipper 04/27/24 Briana Poe RN [address] [facility] [address] [place] [address] [facility] Outpatient Halfway House Counselor 04/30/24 05/28/24 documented as of this encounter
--- OUTSIDE RECORDS SUMMARY | 2024-09-24 03:47 | XMS_ITS | Clinical Summary ---
Author Organization [facility] Address [address] [place] [address] Care Team Providers Care Transportation Refrigeration Technician Name Role Phone Unavailable Primary Care Provider Unavailabl e Source Comments [facility] [employer],non-owned Affiliates and Associated Physician Practices is amultiple site organization consisting of ambulatory clinics and hospital sitesin [place], [place], [place] and [place]. This disclosure is being madepursuant to the Care Everywhere program and may not contain all information available regarding this patient. Last updated 18.[facility] [employer] Active Problems Problem Noted Date Diagnosed Date [...]
--- OUTSIDE RECORDS SUMMARY | 2024-09-24 03:47 | XMS_ITS | Clinical Summary ---
Author Organization [facility] Address [address] [place] [address] Phone Care Team Providers Care Dye Weigher Name Role Phone Unavailable Primary Care Provider Unavailabl e Allergies No known active allergies Medications acetaminophen (TYLENOL) 325 mg tablet Take 325 mg by mouth every 8 hours. Active glucagon (BAQSIMI) 3 mg/spray Bly, Non-Aerosol 1 Bly. GIVE 1 spray in one NOSTRIL ONE [...] STOOL Negative Negative 04/03/2024 3:27 AM CDT [facility] Stool STOOL SPECIMEN / Unknown Collection / Unknown 04/03/2024 1:23 AM CDT 04/03/2024 1:24 AM CDT Marcos Newton MD BODY FLUIDS AND STOOLS Final R esult [facility] [employer] [facility] CLIA# [id number] [place] [address] * LIPID PANEL (04/03/2024 12:30 AM CDT) CHOLESTEROL 114 <200 mg/dL 04/03/2024 1:34 AM CDT [facility] [employer] [facility] TRIGLYCERIDE 62 <150 mg/dL 04/03/2024 1:34 AM CDT [facility] [employer] [facility] HDL 50 40 - 59 mg/dL 04/03/2024 1:34 AM CDT [facility] [employer] [facility] LDL CALCULATED 52 <100 mg/dL 04/03/2024 1:34 AM CDT [facility] NON-HDL CHOLESTEROL 64 <130 mg/dL 04/03/2024 1:34 AM CDT [facility] [employer] [facility] Blood Venipuncture / Unknown 04/03/2024 12:30 AM CDT 04/03/2024 1:04 AM CDT [facility] - 04/03/2024 1:34 AM CDT TOTAL [...] Newton MD CHEMISTRY ORDERABLES Final Res ult [facility] CLIA# [id number] [place] [address] * (ABNORMAL) HEMOGLOBIN A1C (04/02/2024 6:29 PM CDT) HEMOGLOBIN A1C 6.5(H) <=5.6 % 04/02/2024 7:01 PM CDT [facility] EST. AVG GLUCOSE, A1C 140 mg/dL 04/02/2024 7:01 PM CDT [facility] Blood Venipuncture / Unknown 04/02/2024 6:29 PM CDT 04/02/2024 6:34 PM CDT [facility] - 04/02/2024 7:01 PM CDT HGB A1C INTERPRETATION NORMAL: <5.7% PRE-DIABETES: 5.7 - 6.4% DIABETES: 6.5% OR GREATER Marcos Newton MD CHEMISTRY ORDERABLES Final Res ult [facility] CLIA# [id number] [address] [place] [address] from Last 3 Months or Most Recently Relevant to Health Maintenance Insurance [facility] [id number] RX [employer] Member Subscriber Plan / Payer (Ef fective 2024-Present) Name:Aleah Levine Relation to Subscriber:Self Name:Aleah Levine Payer ID:Not on file Group ID:[id number] Type:RX Medicare Part D Address: [place] Advance Directives For more information, please contact: [phone] * Full Code (Latest Code Status on File) Date Activated Date Inactivated Comments 04/02/2024 6:16 PM 04/06/2024 2:11 PM
--- OUTSIDE RECORDS SUMMARY | 2024-09-24 03:47 | XMS_ITS | Encounter Summary ---
Author Organization [facility] Address [address] [place] [address] Phone Care Team Providers Care Medical Coding Auditor Name Role Phone Maddy Romano MD Primary Care Provider [phone] Astrid Haq NP Unavailable [phone] Manas Ibarra MD Unavailable Zion Barton MD Unavailable Molina Charles MD Unavailable [phone] Inés Lemus RN Unavailable [phone] Karuna Maria OT Unavailable Unavaila Renu Paul NP Unavailable Eladio Mcrae MD Unavailable [phone] Tamiko Schroeder RN Unavailable [phone] Briana Poe RN Unavailable Encounter Details Date Type Department Care Team (Late st Contact Info) Description 09/07/2021 Orders Only [facility] Scanning, Provider Social History Tobacco Use Types Packs/Day Years Used Date Smoking Tobacco: Former Cigarettes Q uit: 2010 Smokeless Tobacco: Never Comments No Sex and Gender Information Value Date Recorded Sex Assigned at Not on file 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 Gender Identity Female 11/15/2021 2:30 AM CDT [...] as of this encounter Care Teams Medical Coding Auditor Relationship Specialty Start Date End Date Maddy Romano MD [address] [place] [address] PCP - General 09/28/16 Astrid Haq NP [address] [place] [address] Nurse Practitioner Radiation Oncology 11/05/18 11/07/22 Manas Ibarra MD [address] [place] [address] Referring Physician Thoracic Surgery 11/05/18 Zion Barton MD [address] [place] [address] Radiation Oncologist Radiation Oncology 05/05/19 Molina Charles MD [address] [facility] [address] [place] [address] Referring Physician Transplant Hepatology 12/15/20 Inés Lemus RN [address] [facility] [address] [place] [address] Foreign Exchange Trader 10/31/21 Karuna Maria OT Occupational Therapist Occupational Therapy 09/20/22 Renu Treviño NP [address] [facility] [address] [place] [address] Nurse Practitioner Radiation Oncology 11/08/22 Eladio Mcrae MD [address] [place], [place] [address] Referring Physician Obstetrics and Gynecology 11/15/22 Tamiko Schroeder RN [address] [place] [address] Foreign Exchange Trader 04/27/24 Briana Poe RN [address] [facility] [address] [place] [address] [facility] Outpatient Soil Science Teacher 04/30/24 05/28/24 documented as of this encounter
--- OUTSIDE RECORDS SUMMARY | 2024-09-24 03:47 | XMS_ITS | Patient Health Summary ---
Author Organization [facility] Address [address] [place] [place] [address] Care Team Providers Care Software Applications Engineer Name Role Phone Unavailable Primary Care Provider Unavailabl e Note from [facility],non-owned Affiliates and Associated Physician Practices is amultiple site organization consisting of ambulatory clinics and hospital sitesin [place], [place], [place] and [place]. This disclosure is being madepursuant to the Care Everywhere program and may not contain all information available regarding this patient. Last updated 18.[facility] Active Problems Problem Noted Date Diagnosed Date Hepatic encephalopathy 04/01/2024 Cerebellar infarct 04/01/2024 Social History Tobacco Use Types Packs/Day Years Used Date Smoking Tobacco: Never Assessed Sex and Gender Information Value Date Recorded Sex Assigned at Not on file Gender Identity Not on file Sexual Orientation Not on file
--- OUTSIDE RECORDS SUMMARY | 2024-09-24 03:47 | XMS_ITS | Encounter Summary ---
Author Organization [facility] Address [address] [place] [address] Phone Care Team Providers Care Charter Bus Driver Name Role Phone Maddy Romano MD Primary Care Provider [phone] Astrid Haq NP Unavailable Manas Ibarra MD Unavailable Zion Barton MD Unavailable Molina Charles MD Unavailable [phone] Inés Lemus RN Unavailable [phone] Karuna Maria OT Unavailable Unavaila Renu Paul NP Unavailable Eladio Mcrae MD Unavailable Tamiko Schroeder RN Unavailable [phone] rBiana Poe RN Unavailable Encounter Details Date Type Department Care Team (Late st Contact Info) Description 04/13/2020 Orders Only [facility] Scanning, Provider Social History Tobacco Use Types Packs/Day Years Used Date Smoking Tobacco: Former Cigarettes Q uit: 2010 Smokeless Tobacco: Never Comments No Sex and Gender Information Value Date Recorded Sex Assigned at Not on file 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 Gender Identity Female 11/15/2021 2:30 AM CDT [...] documented as of this encounter Care Teams Charter Bus Driver Relationship Specialty Start Date End Date Maddy Romano MD [address] [place] [address] PCP - General 09/28/16 Astrid Haq NP [address] [place] [address] Nurse Practitioner Radiation Oncology 11/05/18 11/07/22 Manas Ibarra MD [address] [place] [address] Referring Physician Thoracic Surgery 11/05/18 Zion Barton MD [address] [place] [address] Radiation Oncologist Radiation Oncology 05/05/19 Molina Charles MD [address] [place] [address] [address] [place] [address] Referring Physician Transplant Hepatology 12/15/20 Inés Lemus RN [address] [facility] [address] [place] [address] Distribution Engineer 10/31/21 Karuna Maria, OT Occupational Therapist Occupational Therapy 09/20/22 Renu Treviño NP [address] [facility] [address] [place] [address] Nurse Practitioner Radiation Oncology 11/08/22 Eladoi Mcrae MD [address] [place] [address] Referring Physician Obstetrics and Gynecology 11/15/22 Tamiko Schroeder RN [address] [place] [address] Distribution Engineer 04/27/24 Briana Poe RN [address] [facility] [address] [place] [address] [facility] Outpatient Cabinet Installer 04/30/24 05/28/24 documented as of this encounter
--- OUTSIDE RECORDS SUMMARY | 2024-09-24 03:47 | XMS_ITS | Encounter Summary ---
Author Organization [facility] Address [address] [place] [address] Care Team Providers Care Office Director Name Role Phone Maddy Romano MD Primary Care Provider Astrid Haq NP Unavailable Manas Ibarra MD Unavailable Zion Barton MD Unavailable oMlina Charles MD Unavailable [phone] Inés Lemus RN Unavailable [phone] Karuna Maria OT Unavailable Unavaila Renu Paul NP Unavailable [phone] Eladio Mcrae MD Unavailable [phone] Tamiko Schroeder RN Unavailable [phone] Briana Poe RN Unavailable [phone] Reason for Visit * Reason Onset Date Comments Ready to schedule 04/25/2022 Encounter Details Date Type Department Care Team (Late st Contact Info) Description 04/25/2022 Telephone LOCATED WITHIN [facility] Specialty Services [address] [place] [address] Miscellaneous, Not In File Ready to schedule [...] on file 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 Female 8:22 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 Gender Identity Female 11/15/2021 2:30 AM CDT [...] documented as of this encounter Care Teams Office Director Relationship Specialty Start Date End Date Maddy Romano MD [address] [place] [address] PCP - General 09/28/16 Astrid Haq NP [address] [place] [address] Nurse Practitioner Radiation Oncology 11/05/18 11/07/22 Manas Ibarra MD [address] [place] [address] Referring Physician Thoracic Surgery 11/05/18 Zion Barton MD [address] [place] [address] Radiation Oncologist Radiation Oncology 05/05/19 Molina Charles MD 1 [facility] [address] [place] [address] Referring Physician Transplant Hepatology 12/15/20 Inés Lemus RN [address] [facility] [address] [place] [address] Supervisor Wet End 10/31/21 Karuna Maria, OT Occupational Therapist Occupational Therapy 09/20/22 Renu Treviño NP [address] [facility] [address] [place] [address] Nurse Practitioner Radiation Oncology 11/08/22 Eladio Mcrae MD [address] [place] [address] Referring Physician Obstetrics and Gynecology 11/15/22 Tamiko Schroeder RN [address] [place] [address] Supervisor Wet End 04/27/24 Briana Poe RN [address] [facility] [address] [place] [address] SH[facility] Outpatient Organ Grinder 04/30/24 05/28/24 documented as of this encounter
--- OUTSIDE RECORDS SUMMARY | 2024-09-24 03:47 | XMS_ITS | Encounter Summary ---
Author Organization [facility] Healthcare Address [address] [place] [address] Care Team Providers Care Securities Sales Associate Name Role Phone Maddy Romano MD Primary Care Provider Astrid Haq NP Unavailable Manas Ibarra MD Unavailable Zion Barton MD Unavailable Molina Charles MD Unavailable [phone] Inés Lemus RN Unavailable [phone] Karuna Maria OT Unavailable Unavaila Renu Paul NP Unavailable [phone] Eladio Mcrae MD Unavailable [phone] Tamiko Schroeder RN Unavailable [phone] Briana Poe RN Unavailable [phone] Reason for Visit * Reason Onset Date Comments Ready to scheduled 04/26/2022 Encounter Details Date Type Department Care Team (Late st Contact Info) Description 04/26/2022 Telephone [facility] Specialty Services [address] [place] [id number] Miscellaneous, Not In File Ready to scheduled [...] on file 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 Gender Identity Female 11/15/2021 2:30 AM CDT [...] documented as of this encounter Care Teams Securities Sales Associate Relationship Specialty Start Date End Date Maddy Romano MD [address] [place] [address] PCP - General 09/28/16 Astrid Haq NP [address] [place] [address] Nurse Practitioner Radiation Oncology 11/05/18 11/07/22 Manas Ibarra MD [address] [place] [address] Referring Physician Thoracic Surgery 11/05/18 Zion Barton MD [address] [place] [address] Radiation Oncologist Radiation Oncology 05/05/19 Molina Charles MD 1 [facility] [address] [place] [address] Referring Physician Transplant Hepatology 12/15/20 Inés Lemus RN [address] [facility] [address] [place] [address] Journalism Instructor 10/31/21 Karuna Maria, OT Occupational Therapist Occupational Therapy 09/20/22 Renu Treviño NP [address] [facility] [address] [place] [address] Nurse Practitioner Radiation Oncology 11/08/22 Eladio Mcrae MD [address] [place] [address] Referring Physician Obstetrics and Gynecology 11/15/22 Tamiko Schroeder RN [address] [place] [address] Journalism Instructor 04/27/24 Briana Poe RN [address] [facility] [address] [place] [address] SHOP Outpatient Federal District Clerk 04/30/24 05/28/24 documented as of this encounter
--- OUTSIDE RECORDS SUMMARY | 2024-09-24 03:47 | XMS_ITS | Referral Summary ---
Author Organization [facility] Address [address] [place] [address] Care Team Providers Care Equipment Or Machinery Cleaner Name Role Phone Unavailable Primary Care Provider Unavailabl e Source Comments [facility],non-owned Affiliates and Associated Physician Practices is amultiple site organization consisting of ambulatory clinics and hospital sitesin [place], [place], [place] and [place]. This disclosure is being madepursuant to the Care Everywhere program and may not contain all information available regarding this patient. Last updated 18.[facility] Active Problems Problem Noted Date Diagnosed Date Hepatic encephalopathy 04/01/2024 Cerebellar infarct 04/01/2024 Social History Tobacco Use Types Packs/Day Years Used Date Smoking Tobacco: Never Assessed Sex and Gender Information Value Date Recorded Sex Assigned at Not on file Gender Identity Not on file Sexual Orientation Not on file Plan of Treatment Not on file
[2024-09-24 03:48] LABS: Add Urine Microscopic? NO; Leukocyte Esterase Ur Negative LEU/UL (Negative)
[2024-09-24 03:52] LABS: Amphetamine Screen Urine Negative (Negative); Barbiturate Screen Urine Negative (Negative); Benzodiazepines Screen Urine Negative (Negative); Cannabinoid Screen Urine Negative (Negative); Cocaine Screen Urine Negative (Negative); Methadone Screen Urine Negative (Negative); Opiate Screen Urine Negative (Negative); Phencyclidine Screen Urine Negative (Negative)
[2024-09-24 03:52] LABS: Creatine Kinase 503 U/L (26-192); NT Pro B Type Natriuretic Pept 172 pg/mL (0-125)
[2024-09-24 03:52] LABS: Lipase 132 U/L (16-77); Thyroid Stimulating Hormone 2.86 uIU/mL (0.36-3.74); Troponin I 37.9 ng/L (0.00-60.4)
--- NOTE | 2024-09-24 03:54 | PC.NURSE ---
PATIENT SITTING UP ON STRETCHER. EASILY REDIRECTABLE. IS AT THE BEDSIDE
--- NOTE | 2024-09-24 04:00 | PC.NURSE ---
JASMIN WITH RADIOLOGY TAKING PATIENT DOWN FOR IMAGING
[2024-09-24 04:13] LABS: SARS-CoV-2 RNA PCR Negative (Negative)
[2024-09-24 04:15] LABS: Influenza A QL RT-PCR Negative (Negative); Influenza B QL RT-PCR Negative (Negative); RSV RNA, RT-PCR Negative (Negative)
--- NOTE | 2024-09-24 04:16 | PC.NURSE ---
RETURNED FROM RADIOLOGY VIA STRETCHER
--- NOTE | 2024-09-24 04:25 | PC.NURSE ---
IS AT THE BEDSIDE. PATIENT IS MUMBLING. UNABLE TO MAKE OUT WHAT PATIENT SAYS
[2024-09-24] MEDS: INSULIN HUMAN REGULAR (*BKC) 1,000 UNITS/10 ML VIAL 5 UNITS SUB-Q (04:48)
[2024-09-24] MEDS: LACTATED RINGERS 500 ML 999 ML IV CONT (04:49)
[2024-09-24] MEDS: LACTULOSE 20 GM/30 ML UDC PO ×2 (04:58→09:03)
--- NOTE | 2024-09-24 05:09 | PC.NURSE ---
PATIENT HAD TO BE COAXED TO TAKE LACTULOSE BY HER . REPORTS THAT SHE NORMALLY DOES NOT REFUSE TO TAKE THE MEDICINE
--- NOTE | 2024-09-24 05:27 | PC.NURSE ---
RESTING ON STRETCHER. AT HER SIDE. BLOOD GLUCOSE BEING OBTAINED BY [employer]. PATIENT MUMBLES AND GROANS. NONSENSICAL SPEECH NOTED. EASILY REDIRECTED
[2024-09-24 05:35] LABS: Glucose Point of Care 346 mg/dl (65-105)
[2024-09-24 06:27] LABS: Reflex Lactic Acid Yes or No Add Lactic
--- NOTE | 2024-09-24 06:37 | PC.NURSE ---
RESTLESS ON STRETCHER. CURTAIN REMAINS OPEN FOR ENHANCED MONITORING. REPORTS THAT HE IS GOING TO SIT OUT IN THE CAR. PHONE NUMBER [phone] PRETTY. PATIENT REPOSITIONED ON STRETCHER. NONSENSICAL SPEECH NOTED.
--- NOTE | 2024-09-24 06:50 | PC.NURSE ---
PURE WICK PLACED. DEPENDS PLACED. REPOSITIONED FOR COMFORT. CURTAIN AND DOOR REMAINS OPEN FOR ENHANCED MONITORING
[2024-09-24 07:02] LABS: Glucose Point of Care 351 mg/dl (65-105)
--- NOTE | 2024-09-24 07:02 | PC.NURSE ---
REPORT GIVEN TO MARISA MARY
[2024-09-24] MEDS: rifAXIMin 550 MG TABLET PO (09:03)
[2024-09-24 09:11] LABS: Lactic Acid Reflex 3.1 mmol/L (0.4-2.0)
[2024-09-24] MEDS: LACTULOSE ENEMA 200 GM/1,000 ML ENEMA RECTAL (09:37)
[2024-09-24] MEDS: ONDANSETRON INJ 4 MG/2 ML VIAL IV PUSH (09:59)
== END 2024-09-24 11:00 | disposition short-term general hospital (02) ==
PROVIDERS: Internal Medicine Critical Care Medicine; Emergency Provider Emergency Medicine; PCP Internal Medicine
DX: K72.90 Hepatic failure, unspecified without coma (principal); K76.82 Hepatic encephalopathy; E72.20 Disorder of urea cycle metabolism, unspecified; D69.6 Thrombocytopenia, unspecified; E11.22 Type 2 diabetes mellitus with diabetic chronic kidney disease; I12.9 Hypertensive chronic kidney disease with stage 1 through stage 4 chronic kidney disease, or unspecified chronic kidney disease; N18.9 Chronic kidney disease, unspecified; Z87.891 Personal history of nicotine dependence; Z20.822 Contact with and (suspected) exposure to COVID-19; Z79.899 Other long term (current) drug therapy; Z79.4 Long term (current) use of insulin
CPT/HCPCS: 36415; 70450; 71045; 80048; 80076; 80307; 81003; 82140; 82550; 82948; 83605; 83690; 83735; 83880; 84443; 84484; 85025; 85610; 87637; 93005; 96361; 96374; 99285; A9270; J1815; J2405; J7120

== ENCOUNTER 2024-10-05 14:42 | Outpatient (CLI) | payer MEDICARE, SELFPAY ==
[2024-10-05 15:18] LABS: INR 1.4; Prothrombin Time 15.1 Seconds (9.50-12.1)
[2024-10-05 15:45] LABS: Alanine Aminotransferase 51 U/L (14-59); Albumin Level 4.2 g/dL (3.4-5.0); Alkaline Phosphatase 105 U/L (46-116); Anion Gap 13 mmol/L (4-12); Aspartate Amino Transferase 60 U/L (15-37); Bilirubin,Total 4.7 mg/dL (0.00-1.00); Blood Urea Nitrogen 40 mg/dL (7-18); Calcium 9.2 mg/dL (8.5-10.1); Carbon Dioxide 27 mmol/L (21-32); Chloride 97 mmol/L (98-108); Estimated Glomerular Filt Rate 23; Glucose 250 mg/dL (70-99); Osmolality Calculated 301 mOsm/kg (285-295); Potassium 3.6 mmol/L (3.5-5.1); Total Protein 6.4 g/dL (6.4-8.2)
[2024-10-05 15:51] LABS: Sodium 137 mmol/L (136-145)
--- OUTSIDE RECORDS SUMMARY | 2024-10-05 17:11 | XMS_ITS | Encounter Summary ---
Author Organization [facility] Address [address] [place] [address] Care Team Providers Care Dater Assembler Name Role Phone Maddy Romano MD Primary Care Provider [phone] Manas Ibarra MD Unavailable Zion Barton MD Unavailable [phone] Molina Charles MD Unavailable [phone] Iéns Lemus RN Unavailable [phone] Karuna Maria OT Unavailable Unavaila Renu Paul NP Unavailable [phone] Eladio Mcrae MD Unavailable [phone] Tamiko Schroeder RN Unavailable [phone] Briana Poe RN Unavailable [phone] Marina Le RN Unavailable [phone] Encounter Details Date Type Department Care Team (Late st Contact Info) Description 05/11/2024 Telephone [facility] [address] [place] [address] Ragini Wheeler, RN Social History Tobacco Use Types Packs/Day Years Used Date Smoking Tobacco: Former Cigarettes 0.5 51 1 970 - 2020 Smokeless Tobacco: Never [facility] Utilities Answer Date Recorded In the [...] often do you attend chur ch or restoration services? Never 04/30/2024 Do you belong to any clubs o r organizations such as islam groups, unions, fraternal or athletic groups, or [...] place to sleep or slept in a nursing home (including now)? No 12/31/2022 Housing Stability [...] any time in the past 12 [facility], were you homeless or living in a nursing home (including now)? No 04/30/2024 Personal Safety Answer Date Recorded Have you ever been in or are you currently in a harmful physical or emotional relationship or is someone making you feel afraid or unsafe? Denies 04/21/2024 Comments No Sex and Gender Information Value Date Recorded Sex Assigned at Not on file Legal Sex Female 8:22 AM CHRO Gender Identity Female 11/15/2021 2:30 AM CDT [...] Date Last Indicated Resolved Time COVID: Suspected 09/24/2024 09/24/2024 09/24/2024 3:13 PM CHRO documented as of this encounter Care Teams Dater Assembler Relationship Specialty Start Date End Date Maddy Romano MD [address] [place] [address] PCP - General 09/28/16 Manas Ibarra MD [address] [place] [address] Referring Physician Thoracic Surgery 11/05/18 Zion Barton MD [address] [place] [address] Radiation Oncologist Radiation Oncology 05/05/19 Molina Charles MD 1 [facility] [address] [place] [address] Referring Physician Transplant Hepatology 12/15/20 Inés Lemus, TYRA [address] [facility] [address] [place] [address] Environmental Sampling Technician 10/31/21 Karuna Maria, OT Occupational Therapist Occupational Therapy 09/20/22 Renu Treviño NP [address] [facility] [address] [place] [address] Nurse Practitioner Radiation Oncology 11/08/22 Eladio Mcrae MD [address] [place], [place] [address] Referring Physician Obstetrics and Gynecology 11/15/22 Tamiko Schroeder RN [address] [place] [address] Environmental Sampling Technician 04/27/24 Briana Poe, TYRA [address] [facility] [address] [place] [address] SHOP Outpatient Truck Dispatcher 04/30/24 05/28/24 Marina Le RN [address] [facility] [address] [place] [address] SHOP Outpatient Truck Dispatcher 10/05/24 documented as of this encounter
--- OUTSIDE RECORDS SUMMARY | 2024-10-05 17:11 | XMS_ITS | Patient Health Summary ---
Author Organization [facility] Address [address] [place] [address] Care Team Providers Care Bronc Buster Name Role Phone Unavailable Primary Care Provider Unavailabl e Note from [facility],non-owned Affiliates and Associated Physician Practices is amultiple site organization consisting of ambulatory clinics and hospital sitesin [place], [place], [place] and [place]. This disclosure is being madepursuant to the Care Everywhere program and may not contain all information available regarding this patient. Last updated 18.[facility] Active Problems Problem Noted Date Diagnosed Date Decompensated hepatic cirrhosis 09/24/2024 Hepatic encephalopathy 04/01/2024 Cerebellar infarct 04/01/2024 Social History Tobacco Use Types Packs/Day Years Used Date Smoking Tobacco: Never Assessed Sex and Gender Information Value Date Recorded Sex Assigned at Not on file Gender Identity Not on file Sexual Orientation Not on file
--- OUTSIDE RECORDS SUMMARY | 2024-10-05 17:11 | XMS_ITS | Clinical Summary ---
Author Organization [facility] Address [address] [place] [address] Care Team Providers Care Disability Hearing Officer Name Role Phone Unavailable Primary Care Provider Unavailabl e Source Comments [facility],non-owned Affiliates and Associated Physician Practices is amultiple site organization consisting of ambulatory clinics and hospital sitesin [place], [place], [place] and [place]. This disclosure is being madepursuant to the Care Everywhere program and may not contain all information available regarding this patient. Last updated 18.[facility] Active Problems Problem Noted Date Diagnosed Date [...] Tdap) 12/18/1979 PNEUMOCOCCAL VACCINE 50+ (1 of 2 - PCV) 12/18/1979 ZOSTER VACCINE (1 of 2) 2010 HEPATITIS B VACCINE (1 of 3 - Risk 3-dose series) 2020 Respiratory Syncytial Virus (RSV) Vaccine Pt: or over 60 yrs (1 - Risk 60-74 years 1-dose series) 2020 COVID-19 VACCINE ( - 2023-2 5 season) 2024 INFLUENZA VACCINE (#1) 2024 DEPRESSION SCREENING 08/12/2024 HIB VACCINE Aged Out No longer eligi [...]
--- OUTSIDE RECORDS SUMMARY | 2024-10-05 17:11 | XMS_ITS | Encounter Summary ---
Author Organization [facility] Address [address] [place] [address] Phone Care Team Providers Care Fisher Quahog Name Role Phone Maddy oRmano MD Primary Care Provider Astrid Haq NP Unavailable [phone] Manas Ibarra MD Unavailable Zion Barton MD Unavailable Molina Charles MD Unavailable [phone] Inés Lemus RN Unavailable [phone] Karuna Maria OT Unavailable Unavaila Renu Paul NP Unavailable [phone] Eladio Mcrae MD Unavailable Tamiko Schroeder RN Unavailable [phone] Briana Poe RN Unavailable Marina Le RN Unavailable Encounter Details Date Type Department Care Team (Late st Contact Info) Description 10/11/2021 Orders Only [facility] Scanning, Provider Social History Tobacco Use Types Packs/Day Years Used Date Smoking Tobacco: Former Cigarettes Q uit: 2010 Smokeless Tobacco: Never Comments No Sex and Gender Information Value Date Recorded Sex Assigned at Not on file Legal Sex Female 8:22 AM MANAGER TRACK Gender Identity Female 11/15/2021 2:30 AM CDT [...] Suspected 04/24/2024 04/24/2024 04/24/2024 12:54 PM CDT COVID: Suspected 09/24/2024 09/24/2024 09/24/2024 3:13 PM MANAGER TRACK documented as of this encounter Care Teams Fisher Quahog Relationship Specialty Start Date End Date Maddy Romano MD [address] [place] [address] PCP - General 09/28/16 Astrid Haq NP [address] [place], [place] [address] Nurse Practitioner Radiation Oncology 11/05/18 11/07/22 Manas Ibarra MD [address] [place] [address] Referring Physician Thoracic Surgery 11/05/18 Zion Barton MD [address] [place] [address] Radiation Oncologist Radiation Oncology 05/05/19 Molina Charles MD 1 [facility] [address] [place] [address] Referring Physician Transplant Hepatology 12/15/20 Inés Lemus, TYRA [address] [facility] [address] [place] [address] Cork Mixer 10/31/21 Karuna Maria, OT Occupational Therapist Occupational Therapy 09/20/22 Renu Treviño NP [address] [facility] [address] [place] [address] Nurse Practitioner Radiation Oncology 11/08/22 Eladio Mcrae MD [address] [place], [place] [address] Referring Physician Obstetrics and Gynecology 11/15/22 Tamiko Schroeder, RN [address] [place] [address] Cork Mixer 04/27/24 Briana Poe RN [address] [facility] [address] [place] [address] SHOP Outpatient Physical Therapy Resident 04/30/24 05/28/24 Marina Le, RN [address] [facility] [address] [place] [address] SHOP Outpatient Physical Therapy Resident 10/05/24 documented as of this encounter
--- OUTSIDE RECORDS SUMMARY | 2024-10-05 17:11 | XMS_ITS | Encounter Summary ---
Author Organization [facility] Address [address] [place] [address] Phone Care Team Providers Care Lead Printer Name Role Phone Maddy Romano MD Primary Care Provider [phone] Astrid Haq NP Unavailable [phone] Manas Ibarra MD Unavailable Zion Barton MD Unavailable Molina Charles MD Unavailable [phone] Inés Lemus RN Unavailable [phone] Karuna Maria OT Unavailable Unavaila Renu Paul NP Unavailable Eladio Mcrae MD Unavailable [phone] Tamiko Schroeder RN Unavailable [phone] Briana Poe RN Unavailable Marina Le RN [...] on file Legal Sex Female 8:22 AM DOUGH MIXING MACHINE OPERATOR Gender Identity Female 11/15/2021 2:30 AM [...] COVID: Suspected 09/24/2024 09/24/2024 09/24/2024 3:13 PM DOUGH MIXING MACHINE OPERATOR documented as of this encounter Care Teams Lead Printer Relationship Specialty Start Date End Date Maddy Romano MD [address] [place] [address] PCP - General 09/28/16 Astrid Haq NP [address] [place], [place] [address] Nurse Practitioner Radiation Oncology 11/05/18 11/07/22 Manas Ibarra MD [address] [place] [address] Referring Physician Thoracic Surgery 11/05/18 Zion Barton MD [address] [place] [address] Radiation Oncologist Radiation Oncology 05/05/19 Molina Charles MD 1 [facility] [address] [place] [address] Referring Physician Transplant Hepatology 12/15/20 Inés Lemus, TYRA [address] [facility] [address] [place] [address] Maintenance Data Analyst 10/31/21 Karuna Maria, OT Occupational Therapist Occupational Therapy 09/20/22 Renu Treviño NP [address] [facility] [address] [place] [address] Nurse Practitioner Radiation Oncology 11/08/22 Eladio Mcrae MD [address] [place], [place] [address] Referring Physician Obstetrics and Gynecology 11/15/22 Tamiko Schroeder, RN [address] [place] [address] Maintenance Data Analyst 04/27/24 Briana Poe RN [address] [facility] [address] [place] [address] SHOP Outpatient Sheet Combining Operator 04/30/24 05/28/24 Marina Le, RN [address] [facility] [address] [place] [address] SHOP Outpatient Sheet Combining Operator 10/05/24 documented as of this encounter
--- OUTSIDE RECORDS SUMMARY | 2024-10-05 17:11 | XMS_ITS | Referral Summary ---
Author Organization [facility] Address [address] [place] [address] Care Team Providers Care Vegetable Farming Supervisor Name Role Phone Unavailable Primary Care Provider Unavailabl e Source Comments [facility],non-owned Affiliates and Associated Physician Practices is amultiple site organization consisting of ambulatory clinics and hospital sitesin [place], [place], [place] and [place]. This disclosure is being madepursuant to the Care Everywhere program and may not contain all information available regarding this patient. Last updated 18.[facility] Active Problems Problem Noted Date Diagnosed [...]
--- OUTSIDE RECORDS SUMMARY | 2024-10-05 17:11 | XMS_ITS | Clinical Summary ---
Author Organization [facility] Address [address] [place] [address] Care Team Providers Care Bathhouse Keeper Name Role Phone Maddy Romano MD Primary Care Provider [phone] Active Problems Problem Noted Date Diagnosed Date [...] patient's age to complete this topic Insurance [facility] [place] [id number] Care Teams Bathhouse Keeper Relationship Specialty Start Date End Date Maddy Romano MD [address] [place] [address] PCP - General INTERNAL MEDICINE 01/16/23
--- OUTSIDE RECORDS SUMMARY | 2024-10-05 17:12 | XMS_ITS ---
Care Plan Created on: October 05, 2024 Aleah Levine : 1960 Sex: Female Author Organization [facility] Address [address] [place] [address] Care Team Providers Care Bulb Farmworker Name Role Phone Maddy Romano MD Primary Care Provider [phone] Manas Ibarra MD Unavailable Zion Barton MD Unavailable Molina Charles MD Unavailable [phone] Inés Lemus RN Unavailable [phone] Karuna Maria OT Unavailable Unavaila Renu Paul NP Unavailable [phone] Eladio Mcrae MD Unavailable [phone] Tamiko Schroeder RN Unavailable [phone] Marina Le RN Unavailable [phone] Active Problems Problem Noted Date Diagnosed Date Hypoxic ischemic encephalopa thy of , unspecified stage 09/24/2024 Esophageal varices without bleeding (CMS/HCC) Cirrhosis of [...] 10/10/2022 Assessment & Plan (10/12/2022 12:20 PM BICYCLE ASSEMBLER): Episode of atrial flutter overnight with RVR up to 140s. Patient asymptomatic, normotensive. IV metoprolol X2 given to achieve rate control. [id number] vasc score of 3. TTE from 09/03 without valvular abnormalities. No new episodes today. Lytes within normal limits. - Continue environmental monitoring technician - Continue home dose of metoprolol 25mg BID - Given that patient might be listed for transplant, hepatology would prefer to avoid apixaban. Lovenox is not ideal given her platelet count less than 100. Her INR is too high to consider warfarin. Anemia 10/05/2022 Assessment & Plan (10/11/2022 12:28 PM BICYCLE ASSEMBLER): - Hgb has down trended from 8 [...] 10/05/2022 Assessment & Plan (10/11/2022 12:45 PM BICYCLE ASSEMBLER): -Continue home dose of metoprolol 25mg BID Hepatic encephalopathy 07/31/2022 Assessment & Plan (03/06/2023 5:49 PM CDT): Good control on current medical management. No changes indicated. Assessment & Plan (08/03/2022 1:05 PM BICYCLE ASSEMBLER): Pt with hx of LYONS cirrhosis presenting with progressively worsening mental status over past several weeks. On initial examination patient was AAOx1, on subsequent exam she is now AAOx2 with appropriate responses. NH3 75. Unfortunately no safe area for bedside diagnostic paracentesis. Slurred speech and concerns for swallowing. MIXED LIVESTOCK FARMER completed swallow study and normal. Head CT: No acute intracranial abnormality. -Awaiting Liver MRI -Increased Lactulose to 4x daily (only 1 stool on 08/02) - Rifaximin and Lactulose (goal 3-5 bowel movements) - Fall precautions. - PT/OT: Home with assistance. Assessment & Plan (08/02/2022 2:34 PM BICYCLE ASSEMBLER): Pt with hx of LYONS cirrhosis presenting with progressively worsening mental status over past several weeks. On initial examination patient was AAOx1, on subsequent exam she is now AAOx2 with appropriate responses. NH3 75. Unfortunately no safe area for bedside diagnostic paracentesis. Slurred speech and concerns for swallowing. MIXED LIVESTOCK FARMER completed swallow study and normal. Head CT: No acute intracranial abnormality. - Rifaximin and Lactulose (goal 3-5 bowel movements) - Fall precautions. - PT/OT: Home with assistance. - MIXED LIVESTOCK FARMER completed bedside swallow and Normal Assessment & Plan (08/01/2022 3:28 PM BICYCLE ASSEMBLER): Pt with hx of LYONS cirrhosis presenting [...] concerns for swallowing. - Fall precautions. - MIXED LIVESTOCK FARMER/PT/OT Consults. Assessment & Plan (08/01/2022 4:16 AM BICYCLE ASSEMBLER): Pt with hx of LYONS cirrhosis presenting [...] (10/22/2022): Added automatically from request for surgery [id number] Volume overload 10/06/2022 05/29/2024 Assessment & Plan (10/10/2022 1:09 PM BICYCLE ASSEMBLER): In the setting of LYONS cirrhosis. Diuretics [...] (08/22/2022): Added automatically from request for surgery [id number] Portal vein thrombosis 08/01/202208/22 Assessment & Plan (08/03/2022 1:09 PM BICYCLE ASSEMBLER): -Apixaban 2.5mg BID Assessment & Plan (08/02/2022 2:39 PM BICYCLE ASSEMBLER): -Apixaban 2.5mg BID Assessment & Plan (08/01/2022 3:27 PM BICYCLE ASSEMBLER): -Apixaban 2.5mg BID Assessment & Plan (08/01/2022 4:17 AM BICYCLE ASSEMBLER): Continue home apixaban LYONS (nonalcoholic steatohepatitis) 11/02/2021 07/15/2024 Abnormal mammogram of right breast 11/02/2020 08/22/2022 Preop cardiovascular exam 09/23/2019 Overview (09/23/2019): Added automatically from request for surgery [id number] Colon cancer screening 04/21/201908/22 Overview (04/21/2019): Added automatically from request for surgery [id number] Esophageal varices without bleeding (CMS/HCC) 04/21/20 19 08/22/2022 Overview (04/21/2019): Added automatically from request for surgery [id number] Steatosis of liver 05/20/2017 shelter current use of ant icoagulant therapy 07/26/2016 [...] 05/29/2024 Assessment & Plan (10/12/2022 2:58 PM BICYCLE ASSEMBLER): Previously on dose reduced insulin regimen at OSH 20u lantus, 7u tid lispro + ssi. - Her blood sugars were initially on the lower side (90-100) in setting of poor po intake and TR. Continue SSI only for now and will uptitrate as needed. - Continue Lantus 10u/daily + lispro 4TID Assessment & Plan (08/03/2022 1:09 PM BICYCLE ASSEMBLER): Home regimen of toujeo 42 units + SSI. -Lantus, Lispro TID AC and SSI -No Juice Diet -Consistent Carb+ 2gm NA diet. -CTM BGL Assessment & Plan (08/02/2022 2:38 PM BICYCLE ASSEMBLER): Home regimen of toujeo 42 units + SSI. -Lantus, Lispro TID AC and SSI -No Juice Diet -Consistent Carb+ 2gm NA diet. -CTM BGL Assessment & Plan (08/01/2022 3:26 PM BICYCLE ASSEMBLER): Home regimen of toujeo 42 units + SSI. Given TR and decreased PO intake, insulin regimen reduced to Lantus 20units. - Continue on 2g Na + DM2 diet - CTM BGL Assessment & Plan (08/01/2022 4:17 AM BICYCLE ASSEMBLER): Home regimen of toujeo 42 units + SSI Given TR and decreased PO intake, will dose reduce insulin regimen, 20units + SSIand uptitrate as needed Continue on 2g Na + DM2 diet Additional Health Concerns Active Problems Noted Date Diagnosed Date Initial Follow-Up Appointment 10/05/2024 Note: Pt hospitalized for hepatic encephalopathy. 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 Epic risk 26 Barriers to Medication Adherence 10/05/2024 Problems In Home Environment 10/05/2024 Goals Goal Patient Goal Type Associated Problems Recent Progress Patient-Stated? Author Patient will have kept initial appointment and will show signs of improvement to baseline Care Plan Initial Follow-Up Appointment Marina Madera, TYRA Note: Pt has appointment with hepatology on 10/08 and her will be able to drive her to appointments. Patient will have access to medications needed for healthy outcomes Care Plan Barriers to Medication Adherence Marina Madera, TYRA Note: Reviewed meds. She has stopped all meds as prescribed. Blood sugar 234 and is supervising insulin. She is taking lantus 40U and humalog 5U plus sliding scale. She has meds except the atorvastatin was sent to [facility] outpt pharmacy but not sent home with her. OCM called [facility] to request that the prescription be transferred. Level of assistance will meet patient's needs Care Plan Problems In Home Environment Marina Madera, TYRA Interventions Care Plan Interventions Intervention Entry Date Outcome Follow up to ensure referred resources are provided 10/05/2024 Assess need for higher level of care or SNF/ECF placement. Coordinate placement if appropriate 10/05/2024 Make referral for farmworker animal 10/05/2024 Make referral to [facility] 10/05/2024 Identify/assist in obtaining available community resources and make referrals as needed 10/05/2024 Assess appropriateness for DME. Contact PCP office to start referral process if skilled need is present 10/05/2024 Assess appropriateness for Home Health. Contact PCP office to start referral process if skilled need is present 10/05/2024 Assess current level of functioning and needs with patient/family 10/05/2024 Contact prescriber to request an alternative medication/prescription assistance plan if pt cannot afford medication, is not covered by insurance, or patient did not receive prescription 10/05/2024 Transfer prescriptions to pharmacy that delivers to patient s home as needed 10/05/2024 Review when to call their physician for potential medication refills or complications 10/05/2024 Coordinate with [facility] pharmacist to assist with identified concerns or educational needs 10/05/2024 Voucher medication as needed 10/05/2024 Follow up with patient 2 days after Post Hospital Visit office visit to ensure understanding of changes and follow-up plan 10/05/2024 Related Goals and Interventions Goal Associated Intervent ions Patient will have kept initi al appointment and will show signs of improvement to baseline Follow up with patient 2 days after Post Hospital Visit office visit to ensure understanding of changes and follow-up plan Patient will have access to medications needed for healthy outcomes Contact prescriber to request an alterna tive medication/prescription assistance plan if pt cannot afford medication, is not covered by insurance, or patient did not receive prescription; Transfer prescriptions to pharmacy that delivers to patient s home as needed; Review when to call their physician for potential medication refills or complications; Coordinate with [facility] pharmacist to assist with identified concerns or educational needs; Voucher medication as needed Level of assistance will ashwin t patient's needs Follow up to ensure referred resources a re provided; Assess need for higher level of care or SNF/ECF placement. Coordinate placement if appropriate; Make referral for farmworker animal; Make referral to [facility]; Identify/assist in obtaining available community resources and make referrals as needed; Assess appropriateness for DME. Contact PCP office to start referral process if skilled need is present; Assess appropriateness for Home Health. Contact PCP office to start referral process if skilled need is present; Assess current level of functioning and needs with patient/family
--- OUTSIDE RECORDS SUMMARY | 2024-10-05 17:12 | XMS_ITS | Encounter Summary ---
Author Organization [facility] Address [address] [place] [address] Care Team Providers Care Mc Kay Stitcher Name Role Phone Unavailable Primary Care Provider Unavailabl e Reason for Visit * Reason Onset Date Comments TR on CKD 04/02/2024 Spoke w/Dr. Mueller Stroke/CVA 04/02/2024 Spoke w/Gladys @ Dr. Anthony's exchange Encounter Details Date Type Department Care Team (Late st Contact Info) Description 04/02/2024 Telephone [facility] Emergency [address] [place] [address] Marcos Newton MD [address] [place] [id number] TR on CKD (Spoke w/Dr. Mueller); [...]
--- OUTSIDE RECORDS SUMMARY | 2024-10-05 17:12 | XMS_ITS | Encounter Summary ---
Author Organization [facility] Address [address] [place] [address] Care Team Providers Care Scalemaker Name Role Phone Maddy Romano MD Primary Care Provider Manas Ibarra MD Unavailable Zion Barton MD Unavailable Molina Charles MD Unavailable [phone] Inés Lemus RN Unavailable [phone] Karuna Maria OT Unavailable Unavaila Renu Paul NP Unavailable [phone] Eladio Mcrae MD Unavailable [phone] Tamiko Schroeder RN Unavailable [phone] Marina Le RN Unavailable [phone] Encounter Details Date Type Department Care Team (Late st Contact Info) Description 10/05/2024 Results Follow-Up [facility] Transplant Liver [address] [facility] [id number] [place], [place] [id number] Inés Lemus, RN [address] [facility] [address] [place], [place] [id number] Social History Tobacco Use Types Packs/Day Years Used Date Smoking Tobacco: Former Cigarettes 0.5 51 1 970 - 2020 Smokeless Tobacco: Never [facility] Utilities Answer Date Recorded In the past 12 months has e electric, gas, oil, or water company threatened to shut off services in your home? No 10/05/2024 Social Connection and Isolat ion Panel [NHANES] Answer Date Recorded In a typical week, how many times do you talk on the phone with family, friends, or neighbors? More than three times a week 10/05/2024 How often do you get togethe r with friends or relatives? More than three times a week 10/05/2024 How often do you attend chur ch or temple services? Never 10/05/2024 Do you belong to any clubs o r organizations such as congregational groups, unions, fraternal or athletic groups, or school groups? No 10/05/2024 How often do you attend meet ings of the clubs or organizations you belong to? Never 10/05/2024 Are you , , di vorced, , never , or living with a partner? 10/05/2024 AUDIT-C Answer Date Recorded Q1: How often [...] food, housing, medical care, and heating? Not very hard 10/05/2024 PHQ-2 Answer Date Recorded PHQ-2 Total Score (If total score is 3 or more points, staff should administer the PHQ-9) 0 01/27/2023 Hunger Vital Sign Answer Date Recorded Within the past 12 months, y ou worried that your food would run out before you got the money to buy more. Never true 10/05/19 25 Within the past 12 months, t he food you bought just didn't last and you didn't have money to get more. Never true 10/05/2024 PRAPARE - Transportation Answer Date Re corded In the past 12 months, has l ack of transportation kept you from medical appointments or from getting medications? No 09/13 In the past 12 months, has l ack of transportation kept you from meetings, work, or from getting things needed for daily living? No 10/05/2024 Housing Stability Vital Sign Answer Terrance e [...] place to sleep or slept in a custodial (including now)? No 12/31/2022 Housing Stability Vital Sign Answer Terrance e Recorded In the last 12 months, was t here a time when you were not able to pay the mortgage or rent on time? No 10/05/2024 In the past 12 months, how m any times have you moved where you were living? 0 10/05/2024 At any time in the past 12 m [facility], were you homeless or living in a custodial (including now)? No 10/05/2024 Personal Safety Answer Date Recorded Have you ever been in or are you currently in a harmful physical or emotional relationship or is someone making you feel afraid or unsafe? 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 Author Patient will have kept initial appointment and will show signs of improvement to baseline Care Plan Initial Follow-Up Appointment No Marina Le, RN Note: Pt has appointment with hepatology on 10/08 and her will be able to drive her to appointments. Patient will have access to medications needed for healthy outcomes Care Plan Barriers to Medication Adherence Marina Madera, RN Note: Reviewed meds. She has stopped all meds as prescribed. Blood sugar 234 and is supervising insulin. She is taking lantus 40U and humalog 5U plus sliding scale. She has meds except the atorvastatin was sent to [facility] outpt pharmacy but not sent home with her. OC called [facility] to request that the prescription be transferred. Level of assistance will meet patient's needs Care Plan Problems In Home Environment Marina Madera, RN documented as of this encounter Visit Diagnoses Not on filedocumented in this encounter Additional Health Concerns Active Problems Noted Date Diagnosed Date Initial Follow-Up Appointment 10/05/2024 Note: Pt hospitalized for hepatic encephalopathy. 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 Epic risk 26 Barriers to Medication Adherence 10/05/2024 Problems In Home Environment 10/05/2024 documented as of this encounter Care Teams Scalemaker Relationship Specialty Start Date End Date Maddy Romano MD [address] [place], [place] [id number] PCP - General 09/28/16 Manas Ibarra MD [address] [place] [id number] Referring Physician Thoracic Surgery 11/05/18 Zion Barton MD [address] [place], [place] [address] Radiation Oncologist Radiation Oncology 05/05/19 Molina Charles MD [address] [facility] [address] [place] [address] Referring Physician Transplant Hepatology 12/15/20 Inés Lemus, RN [address] [facility] [address] [place] [address] Table Games Floor Supervisor 10/31/21 Karuna Maria OT Occupational Therapist Occupational Therapy 09/20/22 Renu Treviño NP [address] [facility] [address] [place] [address] Nurse Practitioner Radiation Oncology 11/08/22 Eladio Mcrae MD [address] [place] [address] Referring Physician Obstetrics and Gynecology 11/15/22 Tamiko Schroeder RN [address] [place] [address] Table Games Floor Supervisor 04/27/24 Marina Le, RN [address] [facility] [address] [place] [address] [facility] 10/05/24 documented as of this encounter
--- OUTSIDE RECORDS SUMMARY | 2024-10-05 17:12 | XMS_ITS | Encounter Summary ---
Author Organization [facility] Address [address] [place] [address] Phone Care Team Providers Care Waist Cutter Name Role Phone Maddy Romano MD Primary Care Provider Astrid Haq NP Unavailable Manas Ibarra MD Unavailable Zion Barton MD Unavailable Molina Charles MD Unavailable [phone] Inés Lemus RN Unavailable [phone] Karuna Maria OT Unavailable Unavaila Renu Paul NP Unavailable [phone] Eladio Mcrae MD Unavailable [phone] Tamiko Schroeder RN Unavailable [phone] Briana Poe RN Unavailable [phone] Marina Le RN Unavailable [phone] Encounter Details Date Type Department Care Team (Late st Contact Info) Description 12/25/2019 Orders Only [facility] Scanning, Provider Social History Tobacco Use Types Packs/Day Years Used Date Smoking Tobacco: Former Cigarettes Q uit: 2010 Smokeless Tobacco: Never Comments No Sex and Gender Information Value Date Recorded Sex Assigned at Not on file 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 Gender Identity Female 11/15/2021 2:30 AM [...] COVID: Suspected 09/24/2024 09/24/2024 09/24/2024 3:13 PM CENTRAL CONTROL ROOM OPERATOR documented as of this encounter Care Teams Waist Cutter Relationship Specialty Start Date End Date Maddy Romano MD [address] [place] [address] PCP - General 09/28/16 Astrid Haq NP [address] [place] [address] Nurse Practitioner Radiation Oncology 11/05/18 11/07/22 Manas Ibarra MD [address] [place] [address] Referring Physician Thoracic Surgery 11/05/18 Zion Barton MD [address] [place], [place] [id number] Radiation Oncologist Radiation Oncology 05/05/19 Molina Charles MD 1 [facility] [address] [place] [address] Referring Physician Transplant Hepatology 12/15/20 Inés Lemus RN [address] [facility] [address] [place] [address] Cutter Helper 10/31/21 Karuna Maria OT Occupational Therapist Occupational Therapy 09/20/22 Renu Treviño NP [address] [facility] [address] [place] [address] Nurse Practitioner Radiation Oncology 11/08/22 Eladio Mcrae MD [address] [place], [place] [address] Referring Physician Obstetrics and Gynecology 11/15/22 Tamiko Schroeder, RN [address] [place] [address] Cutter Helper 04/27/24 Briana Poe, RN [address] [address] [facility] Broad[facility] 04/30/24 05/28/24 Marina Le RN [address] [address] [facility] Broadband [facility] 10/05/24 documented as of this encounter
--- OUTSIDE RECORDS SUMMARY | 2024-10-05 17:12 | XMS_ITS | Encounter Summary ---
Author Organization [facility] Address [address] [place] [address] Care Team Providers Care Transportation Supervisor Name Role Phone Maddy Romano MD Primary Care Provider Astrid Haq NP Unavailable Manas Ibarra MD Unavailable Zion Barton MD Unavailable Molina Charles MD Unavailable [phone] Inés Lemus RN Unavailable [phone] Karuna Maria OT Unavailable Unavaila Renu Paul NP Unavailable [phone] Eladio Mcrae MD Unavailable [phone] Tamiko Schroeder RN Unavailable [phone] Briana Poe RN Unavailable [phone] Marina Le RN Unavailable [phone] Reason for Visit * Reason Onset Date Comments Ready to schedule 04/25/2022 Encounter Details Date Type Department Care Team (Late st Contact Info) Description 04/25/2022 Telephone [facility] Specialty Services [address] [place] [phone] Miscellaneous, Not In File Ready to schedule Social History Tobacco Use Types Packs/Day Years Used Date Smoking Tobacco: Former Cigarettes 0.5 51 1 970 - 2020 Smokeless Tobacco: Never AUDIT-C Answer Date [...] on file 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 Gender Identity Female 11/15/2021 2:30 AM CDT [...] COVID: Suspected 09/24/2024 09/24/2024 09/24/2024 3:13 PM HOSPITALIST PHYSICIAN documented as of this encounter Care Teams Transportation Supervisor Relationship Specialty Start Date End Date Maddy Romano MD [address] [place] [address] PCP - General 09/28/16 Astrid Haq NP [address] [place], [place] [address] Nurse Practitioner Radiation Oncology 11/05/18 11/07/22 Manas Ibarra MD [address] [place] [address] Referring Physician Thoracic Surgery 11/05/18 Zion Barton MD [address] [place] [address] Radiation Oncologist Radiation Oncology 05/05/19 Molina Charles MD [address] [place] [address] [address] [place] [address] Referring Physician Transplant Hepatology 12/15/20 Inés Lemus, RN [address] [facility] [address] [place] [address] Investor 10/31/21 Karuna Maria OT Occupational Therapist Occupational Therapy 09/20/22 Renu Treviño NP [address] [facility] [address] [place] [address] Nurse Practitioner Radiation Oncology 11/08/22 Eladio Mcrae MD [address] [facility] [address] [place], [place] [address] Referring Physician Obstetrics and Gynecology 11/15/22 Tamiko Schroeder RN [address] [place] [address] Investor 04/27/24 Briana Poe, TYRA [address] [facility] [address] [place] [address] [facility] Sales Representative 04/30/24 05/28/24 Marina Le RN [address] [facility] [address] [place] [address] [facility] Sales Representative 10/05/24 documented as of this encounter
--- OUTSIDE RECORDS SUMMARY | 2024-10-05 17:12 | XMS_ITS ---
Author Organization [facility] Address [address] [place] [address] Care Team Providers Care Regional Climate Change Analyst Name Role Phone Maddy Romano MD Primary Care Provider [phone] Manas Ibarra MD Unavailable Zion Barton MD Unavailable Molina Charles MD Unavailable [phone] Inés Lemus RN Unavailable [phone] Karuna Maria OT Unavailable Unavaila Renu Paul NP Unavailable [phone] Eladio Mcrae MD Unavailable [phone] Tamiko Schroeder RN Unavailable [phone] Marina Le RN Unavailable [phone] Transplant Episode Kidney Candidate [facility] ([place], [place]) [facility] Center waitlisted on 05/07/2024 Marked as Inactive on 05/26/2024 Reason: Candidate requires multi-organ [place] only, isolated offers not accepted Kidney CoordinatorTamiko Schroeder RN Email: N/A Scores Score Value Updated Exceptions/Reas ons CPRA Not available EPTS (Calc) 55 10/05/2024 [place] Organ Diagnosis Organ Primary Contributory Kidney Other, Specify - 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
--- OUTSIDE RECORDS SUMMARY | 2024-10-05 17:12 | XMS_ITS | Encounter Summary ---
Author Organization Formerly [facility] Address [address] [place] [address] Care Team Providers Care Funeral Home Makeup Artist Name Role Phone Maddy Romano MD Primary Care Provider Manas Ibarra MD Unavailable Zion Barton MD Unavailable Molina Charles MD Unavailable [phone] Inés Lemus RN Unavailable [phone] Karuna Maria OT Unavailable Unavaila Renu Paul NP Unavailable [phone] Eladio Mcrae MD Unavailable [phone] Tamiko Schroeder RN Unavailable [phone] Marina Le RN Unavailable [phone] Reason for Visit * Reason Comments Chart Review Encounter Details Date Type Department Care Team (Late st Contact Info) Description 10/05/2024 SHOP/CHAP Initial Eligibility Review [facility] OP CASE MANAGEMENT [address] [place] [address] Marina Le, RN [address] [facility] [address] [place] [address] Social History Tobacco Use Types Packs/Day Years Used Date Smoking Tobacco: Former Cigarettes 0.5 51 1 970 - 2020 Smokeless Tobacco: Never [facility] Utilities Answer Date Recorded In [...] often do you attend chur ch or muslim services? 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 OCM called [facility] to request that the prescription be transferred. Level of assistance will meet patient's needs Care Plan Problems In Home Environment Marina Madera RN documented as of this encounter Visit [...] documented as of this encounter Care Teams Funeral Home Makeup Artist Relationship Specialty Start Date End Date Maddy Romano MD [address] [place] [address] PCP - General 09/28/16 Manas Iabrra MD [address] [place] [address] [id number] Referring Physician Thoracic Surgery 11/05/18 Zion Barton MD [address] [place] [address] [phone] Radiation Oncologist Radiation Oncology 05/05/19 Molina Charles MD 1 [facility] [address] [place] [address] Referring Physician Transplant Hepatology 12/15/20 Inés Lemus, RN 4590 [facility] [address] [place] [address] Manager Pricing 10/31/21 Karuna Maria OT Occupational Therapist Occupational Therapy 09/20/22 Reun Treviño NP [address] [facility] [address] [place] [address] Nurse Practitioner Radiation Oncology 11/08/22 Eladio Mcrae MD [address] [place], [place] [address] Referring Physician Obstetrics and Gynecology 11/15/22 Tamiko Schroeder RN [address] [place] [address] Manager Pricing 04/27/24 Marina Le RN [address] [facility] [address] [place] [address] SHOP Outpatient Service Desk Lead 10/05/24 documented as of this encounter
--- OUTSIDE RECORDS SUMMARY | 2024-10-05 17:12 | XMS_ITS ---
Author Organization [facility] Address [address] [place] [address] Care Team Providers Care Auto Transmission Mechanic Name Role Phone Maddy Romano MD Primary Care Provider + [phone] Manas Ibarra MD Unavailable Zion Barton MD Unavailable Molina Charles MD Unavailable [phone] Inés Lemus RN Unavailable [phone] Karuna Maria OT Unavailable Unavaila Renu Paul NP Unavailable [phone] Eladio Mcrae MD Unavailable [phone] Tamiko Schroeder RN Unavailable [phone] Marina Le RN Unavailable [phone] Transplant Episode Liver Candidate [facility] ([place], [place]) [facility] Center waitlisted on 08/17/2022 Marked as Active on 09/28/2024 Reason: [facility] Liver CoordinatorAmy Zofia Lemus RN Fax: N/A Email: N/A Scores Score Value Updated Expires Exceptions/[place] sons CPRA Not available UNOS MELD 28 09/28/2024 10/05/2024 MELD (Calc) 26 10/01/2024 [place] Organ Diagnosis Organ Primary Contributory Liver Cirrhosis: Metabolic Dysfunction -Associated Steatohepatitis (MASH) Care Team Name Role Phone Fax Email Inés Lemus RN Liver Coordinator [phone] N/A N/A Charito Lambert, DEVONTE Dietitian N/A N/A N/A Anna Ngo, LABOR EMPLOYMENT ASSOCIATE Geospatial Information Scientist N/A N/A N/A Molina Charles MD Referring Physician [phone] N/A Chelesa Barker RN Secondary Coordinator N/A N/A N/A [place] Bear Refuse Driver [phone] N/A N/A Faith Lopez Primary Braille Operator N/A N/A N/A Events Pre-Transplant Referred: 10/26/2021 Evaluation began: 11/02/2021 Committee: 08/07/2022 Center waitlisted: 08/17/2022
--- OUTSIDE RECORDS SUMMARY | 2024-10-05 17:12 | XMS_ITS | Encounter Summary ---
Author Organization [facility] Healthcare Address [address] [place] [address] Care Team Providers Care Hand Pleater Name Role Phone Maddy Romano MD Primary Care Provider Astrid Haq NP Unavailable [phone] Manas Ibarra MD Unavailable Zion Barton MD Unavailable Molina Charles MD Unavailable [phone] Inés Lemus RN Unavailable [phone] Karuna Maria OT Unavailable Unavaila Renu Paul NP Unavailable [phone] Eladio Mcrae MD Unavailable [phone] Tamiko Schroeder RN Unavailable [phone] Briana Poe RN Unavailable [phone] Marina Le RN Unavailable Reason for Visit * Reason Onset Date Comments Ready to scheduled 04/26/2022 Encounter Details Date Type Department Care Team (Late st Contact Info) Description 04/26/2022 Telephone [facility] Specialty Services [address] [place] [phone] Miscellaneous, Not In File Ready to scheduled [...] on file Legal Sex Female 8:22 AM REFRACTORY MANAGER Gender Identity Female 11/15/2021 2:30 AM [...] COVID: Suspected 09/24/2024 09/24/2024 09/24/2024 3:13 PM REFRACTORY MANAGER documented as of this encounter Care Teams Hand Pleater Relationship Specialty Start Date End Date Maddy Romano MD [address] [place] [address] PCP - General 09/28/16 Astrid Haq NP [address] [place], [place] [address] Nurse Practitioner Radiation Oncology 11/05/18 11/07/22 Manas Ibarra MD [address] [place] [address] Referring Physician Thoracic Surgery 11/05/18 Zion Barton MD [address] [place] [address] Radiation Oncologist Radiation Oncology 05/05/19 Molina Charles MD [address] [place] [address] [address] [place] [address] Referring Physician Transplant Hepatology 12/15/20 Inés Lemus, RN 45[address] [facility] [address] [place] [address] Certified Professional Controller 10/31/21 Karuna Maria OT Occupational Therapist Occupational Therapy 09/20/22 Renu Treviño NP [address] [facility] [address] [place] [address] Nurse Practitioner Radiation Oncology 11/08/22 Eladio Mcrae MD [address] [facility] [address] [place], [place] [address] Referring Physician Obstetrics and Gynecology 11/15/22 Tamiko Schroeder RN [address] [place] [address] Certified Professional Controller 04/27/24 Briana Poe, TYRA [address] [facility] [address] [place] [address] SHOP Outpatient Asp Web Developer 04/30/24 05/28/24 Marina Le RN 4590 [facility] [address] [place] [address] SHOP Outpatient Asp Web Developer 10/05/24 documented as of this encounter
--- OUTSIDE RECORDS SUMMARY | 2024-10-05 17:12 | XMS_ITS | Encounter Summary ---
Author Organization [facility] Address [address] [place] [address] Phone Care Team Providers Care Hospital Cleaner Name Role Phone Maddy Romano MD Primary Care Provider Astrid Haq NP Unavailable Manas Ibarra MD Unavailable Zion Barton MD Unavailable Molina Charles MD Unavailable [phone] Inés Lemus RN Unavailable [phone] Karuna Maria OT Unavailable Unavaila Renu Paul NP Unavailable [phone] Eladio Mcrae MD Unavailable [phone] Tamiko Schroeder RN Unavailable [phone] Briana Poe RN Unavailable [phone] Marina Le RN Unavailable [phone] Encounter Details Date Type Department Care Team (Late st Contact Info) Description 06/16/2021 Orders Only [facility] Scanning, Provider Social History Tobacco Use Types Packs/Day Years Used Date Smoking Tobacco: Former Cigarettes Q uit: 2010 Smokeless Tobacco: Never Comments No Sex and Gender Information Value Date Recorded Sex Assigned at Not on file 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 Female 8:22 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 SERVICE OPERATOR Gender Identity Female 11/15/2021 2:30 AM [...] COVID: Suspected 09/24/2024 09/24/2024 09/24/2024 3:13 PM MARINE SERVICE OPERATOR documented as of this encounter Care Teams Hospital Cleaner Relationship Specialty Start Date End Date Maddy Romano MD [address] [place] [address] PCP - General 09/28/16 Astrid Haq NP [address] [place], [place] [address] Nurse Practitioner Radiation Oncology 11/05/18 11/07/22 Manas Ibarra MD [address] [place] [address] Referring Physician Thoracic Surgery 11/05/18 Zion Barton MD [address] [place] [address] Radiation Oncologist Radiation Oncology 05/05/19 Molina Charles MD 1 [facility] [address] [place] [address] Referring Physician Transplant Hepatology 12/15/20 Inés Lemus, TYRA 4590 [facility] [address] [place] [address] Puppet Maker 10/31/21 Karuna Maria, OT Occupational Therapist Occupational Therapy 09/20/22 Renu Treviño NP 49[address] [facility] [address] [place] [address] Nurse Practitioner Radiation Oncology 11/08/22 Eladio Mcrae MD [address] [place], [place] [address] Referring Physician Obstetrics and Gynecology 11/15/22 Tamiko Schroeder, RN [address] [place] [address] Puppet Maker 04/27/24 Briana Poe RN 4590 [facility] [address] [place] [address] SHOP Outpatient Medical Sales Representative 04/30/24 05/28/24 Marina Le, RN 4590 [facility] [address] [place] [address] SHOP Outpatient Medical Sales Representative 10/05/24 documented as of this encounter
--- OUTSIDE RECORDS SUMMARY | 2024-10-05 17:12 | XMS_ITS | Encounter Summary ---
Author Organization [facility] Address [address] [place] [address] Care Team Providers Care Business Analysis Analyst Name Role Phone Maddy Romano MD Primary Care Provider Manas Ibarra MD Unavailable Zion Barton MD Unavailable [phone] Molina Charles MD Unavailable [phone] Inés Lemus RN Unavailable [phone] Karuna Maria OT Unavailable Unavaila Renu Paul NP Unavailable [phone] Eladio Mcrae MD Unavailable [phone] Tamiko Schroeder RN Unavailable [phone] Marina Le RN Unavailable Encounter Details Date Type Department Care Team (Late st Contact Info) Description 10/05/2024 Telephone [facility] Transplant Liver 45[address] [facility] [address] [phone] [place], [place] [phone] Inés Lemus, RN [address] [facility] [address] [place], [place] [id number] Social History Tobacco Use Types Packs/Day Years Used Date Smoking Tobacco: Former Cigarettes 0.5 51 1 970 - 2020 Smokeless Tobacco: Never [facility] Utilities Answer Date Recorded In the [...] often do you attend chur ch or yazidism services? Never 10/05/2024 Do you belong to any clubs o r organizations such as taoism groups, unions, fraternal or athletic groups, or [...] any time in the past 12 m [facility], were you homeless or living in a assisted (including now)? No 10/05/2024 Personal Safety Answer Date Recorded Have you ever been in or are you currently in a harmful physical or emotional relationship or is someone making you feel afraid or unsafe? 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 He will take her to [place] todayto get labs TER HELPER SIGN documented in this encounter Plan of Treatment Scheduled Orders Name Type Priority Associated Diagnoses Orde r Schedule Comprehensive metabolic panel Lab STAT LYONS (nonalcoholic steatohepatitis) Expected: 10/05/2024, Expires: 10/05/2025 Protime-INR Lab STAT LYONS (nonalcoholic steatohepatitis) Expected: 10/05/2024, Expires: 10/05/2025 Scheduled Procedures Name Priority Associated Diagnoses Date/Ti me COLONOSCOPY Routine adult health maintenance LYONS (nonalcoholic steatohepatitis) documented as of this encounter Goals Goal Patient Goal Type Associated Problems Recent Progress Patient-Stated? Author Patient will have kept initial appointment and will show signs of improvement to baseline Care Plan Initial Follow-Up Appointment Marina Madera, RN Note: Pt has appointment with hepatology [...] meds except the atorvastatin was sent to [facility] outpt pharmacy but not sent home with her. OCM called [facility] to request that the prescription be transferred. Level of assistance will meet patient's needs Care Plan Problems In Home Environment Marina Madera, RN documented as of this encounter Visit Diagnoses Diagnosis LYONS (nonalcoholic steatohepatitis)- Primary Other chronic nonalcoholic liver disease documented in this encounter Additional Health Concerns Active Problems Noted Date Diagnosed Date Initial Follow-Up Appointment 10/05/2024 Note: Pt hospitalized for hepatic encephalopathy. 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 Epic risk 26 Barriers to Medication Adherence 10/05/2024 Problems In Home Environment 10/05/2024 documented as of this encounter Care Teams Business Analysis Analyst Relationship Specialty Start Date End Date Maddy Romano MD [address] [place] [address] PCP - General 09/28/16 Manas Ibarra MD [address] [place] [address] Referring Physician Thoracic Surgery 11/05/18 Zion Barton MD [address] [place], [place] [address] Radiation Oncologist Radiation Oncology 05/05/19 Molina Charles MD [address] [facility] [address] [place] [address] Referring Physician Transplant Hepatology 12/15/20 Inés Lemus RN 4590 [facility] [address] [place] [address] Rod Puller 10/31/21 Karuna Maria OT Occupational Therapist Occupational Therapy 09/20/22 Renu Treviño NP 4921 [facility] [address] [place] [address] Nurse Practitioner Radiation Oncology 11/08/22 Eladio Mcrae MD [address] [place], [place] [address] Referring Physician Obstetrics and Gynecology 11/15/22 Tamiko Schroeder RN [address] [place] [address] Rod Puller 04/27/24 Marina Le, TYRA 45[address] [facility] [address] [place] [address] SHOP Outpatient Endocrinology Physician 10/05/24 documented as of this encounter
--- OUTSIDE RECORDS SUMMARY | 2024-10-05 17:12 | XMS_ITS | Encounter Summary ---
Author Organization [facility] Address [address] [place] [address] Care Team Providers Care Rim Roller Operator Name Role Phone Maddy Romano MD Primary Care Provider [phone] Manas Ibarra MD Unavailable Zion Barton MD Unavailable Molina Charles MD Unavailable [phone] Inés Lemus RN Unavailable [phone] Karuna Maria OT Unavailable Unavaila Renu Paul NP Unavailable [phone] Eladio Mcrae MD Unavailable [phone] Tamiok Schroeder RN Unavailable [phone] Marina Le RN Unavailable Reason for Visit * Reason Comments Successfully Completed Encounter Details Date Type Department Care Team (Late st Contact Info) Description 10/05/2024 SHOP/CHAP Initial Outreach [facility] OP CASE MANAGEMENT [address] [place] [address] Marina Le, RN 4564 [facility] [address] [place] [address] Social History Tobacco Use Types Packs/Day Years Used Date Smoking Tobacco: Former Cigarettes 0.5 51 1 970 - 2020 Smokeless Tobacco: Never [facility] Utilities Answer Date Recorded In the [...] often do you attend chur ch or hinduism services? Never 10/05/2024 Do you belong to any clubs o r organizations such as orthodoxy groups, unions, fraternal or athletic groups, or [...] place to sleep or slept in a detention (including now)? No 12/31/2022 Housing Stability Vital [...] were you homeless or living in a detention (including now)? No 10/05/2024 Personal Safety Answer Date Recorded Have you ever been in or are you currently in a harmful physical or emotional relationship or is someone making you feel afraid or unsafe? 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 Pt hospitalized for hepatic encephalopathy. 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 She discharged to home where she lives with her . Pt has appointment with hepatology on 10/08 and her will be able to drive her to appointments. He has a call out to PCP. Reviewed meds. She has stopped all meds as prescribed. Blood sugar 234 and is supervising insulin. She is taking lantus 40U and humalog 5U plus sliding scale. She has meds except the atorvastatin was sent to [facility] out pharmacy but not sent home with her. OCM called [facility] to request that the prescription be transferred. Inst the importance of lactulose as a laxative to lower ammonialevel. Ammonia level become elevated with liver failure and mental confusion occurs when ammonia level is high. The ammonia level is lowered with frequent bowel movements. Pr requires supervision with personal care and is dependent on for IADLs. She has a walker but is usually able to ambulate without device. Pt requires home health for skilled PT and it appears that the inpatient bottle caser sent multiple referrals without finding an accepting agency. The usually use [employer] and has called them and they are reviewing. Per chart review, no home health order in the system. OCM contacted discharging provider requesting a home health order, waiting for a response.OCM to continue to follow and reminded patient/family to call OCM for questions or concerns. UTER EDUCATION TEACHER documented in this encounter Plan of Treatment Scheduled Procedures Name Priority Associated Diagnoses Date/Ti nc COLONOSCOPY Routine adult health maintenance LYONS (nonalcoholic [...] meds except the atorvastatin was sent to [facility] outpt pharmacy but not sent [...] documented as of this encounter Care Teams Rim Roller Operator Relationship Specialty Start Date End Date Maddy Romano MD [address] [place], [place] [phone] PCP - General 09/28/16 Manas Ibarra MD [address] [place], [place] [address] Referring Physician Thoracic Surgery 11/05/18 Zion Barton MD [address] [place], [place] [address] Radiation Oncologist Radiation Oncology 05/05/19 Molina Charles MD 1 [facility] [address] [place] [address] Referring Physician Transplant Hepatology 12/15/20 Inés Lemus, TYRA [address] [facility] [address] [place] [address] Tap Puller 10/31/21 Karuna Maria, OT Occupational Therapist Occupational Therapy 09/20/22 Renu Treviño NP 49[address] [facility] [address] [place] [address] Nurse Practitioner Radiation Oncology 11/08/22 Eladio Mcrae MD [address] [place] [address] Referring Physician Obstetrics and Gynecology 11/15/22 Tamiko Schroeder RN [address] [place] [address] Tap Puller 04/27/24 Marina Le, RN 4590 [facility] [address] [place] [address] SHOP Outpatient County Extension Agent 10/05/24 documented as of this encounter
--- OUTSIDE RECORDS SUMMARY | 2024-10-05 17:12 | XMS_ITS | Clinical Summary ---
Author Organization [facility] Address [address] [place] [address] Phone Care Team Providers Care Fish Hatchery Supervisor Name Role Phone Unavailable Primary Care Provider Unavailabl e Allergies No known active allergies Medications acetaminophen (TYLENOL) 325 mg tablet Take 325 mg by mouth every 8 hours. Active glucagon (BAQSIMI) 3 mg/spray [place], Non-Aerosol 1 [place]. GIVE 1 spray in one NOSTRIL ONE [...] STOOL Negative Negative 04/03/2024 3:27 AM CDT [facility] Stool STOOL SPECIMEN / Unknown Collection / Unknown 04/03/2024 1:23 AM CDT 04/03/2024 1:24 AM CDT Marcos Newton MD BODY FLUIDS AND STOOLS Final R esult [facility] [employer] [facility] CLIA# [id number] [address] [place] [address] * LIPID PANEL (04/03/2024 12:30 AM CDT) CHOLESTEROL 114 <200 mg/dL 04/03/2024 1:34 AM CDT [facility] [employer] [facility] TRIGLYCERIDE 62 <150 mg/dL 04/03/2024 1:34 AM CDT [facility] [employer] [facility] HDL 50 40 - 59 mg/dL 04/03/2024 1:34 AM CDT [facility] [employer] [facility] LDL CALCULATED 52 <100 mg/dL 04/03/2024 1:34 AM CDT [facility] NON-HDL CHOLESTEROL 64 <130 mg/dL 04/03/2024 1:34 AM CDT [facility] [employer] [facility] Blood Venipuncture / Unknown 04/03/2024 12:30 AM CDT 04/03/2024 1:04 AM CDT [facility] - 04/03/2024 1:34 AM CDT TOTAL [...] Newton MD CHEMISTRY ORDERABLES Final Res ult [facility] CLIA# [id number] [place] [address] * (ABNORMAL) HEMOGLOBIN A1C (04/02/2024 6:29 PM CDT) HEMOGLOBIN A1C 6.5(H) <=5.6 % 04/02/2024 7:01 PM CDT [facility] EST. AVG GLUCOSE, A1C 140 mg/dL 04/02/2024 7:01 PM CDT [facility] Blood Venipuncture / Unknown 04/02/2024 6:29 PM CDT 04/02/2024 6:34 PM CDT [facility] - 04/02/2024 7:01 PM CDT HGB A1C INTERPRETATION NORMAL: <5.7% PRE-DIABETES: 5.7 - 6.4% DIABETES: 6.5% OR GREATER Marcos Newton MD CHEMISTRY ORDERABLES Final Res ult [facility] CLIA# [id number] [address] [place] [address] from Last 3 Months or Most Recently Relevant to Health Maintenance Insurance [facility] [id number] RX [employer] Member Subscriber Plan / Payer (Ef fective 2024-Present) Name:Aleah Levine Relation to Subscriber:Self Name:Aleah Levine Payer ID:Not on file Group ID:[id number] Type:RX Medicare Part D Address: [address] Advance Directives For more information, please contact: [phone] * Full Code (Latest Code Status on File) Date Activated Date Inactivated Comments 04/02/2024 6:16 PM 04/06/2024 2:11 PM
--- OUTSIDE RECORDS SUMMARY | 2024-10-05 17:12 | XMS_ITS | Encounter Summary ---
Author Organization [facility] Address [address] [place] [address] Phone Care Team Providers Care Mobile Sales Assistant Name Role Phone Maddy Romano MD Primary Care Provider Astrid Haq NP Unavailable Manas Ibarra MD Unavailable Zion Barton MD Unavailable Molina Charles MD Unavailable [phone] Inés Lemus RN Unavailable [phone] Karuna Maria OT Unavailable Unavaila Renu Paul NP Unavailable [phone] Eladio Mcrae MD Unavailable [phone] Tamiko Schroeder RN Unavailable [phone] Briana Poe RN Unavailable Marina Le RN Unavailable [phone] Encounter Details Date Type Department Care Team (Late st Contact Info) Description 04/13/2020 Orders Only [facility] Scanning, Provider Social History Tobacco Use Types Packs/Day Years Used Date Smoking Tobacco: Former Cigarettes Q uit: 2010 Smokeless Tobacco: Never Comments No Sex and Gender Information Value Date Recorded Sex Assigned at Not on file Legal Sex Female 8:22 AM AXLE TURNER Gender Identity Female 11/15/2021 2:30 AM CDT [...] COVID: Suspected 09/24/2024 09/24/2024 09/24/2024 3:13 PM AXLE TURNER documented as of this encounter Care Teams Mobile Sales Assistant Relationship Specialty Start Date End Date Maddy Romano MD [address] [place] [address] PCP - General 09/28/16 Astrid Haq NP [address] [place] [address] Nurse Practitioner Radiation Oncology 11/05/18 11/07/22 Manas Ibarra MD [address] [place] [address] Referring Physician Thoracic Surgery 11/05/18 Zion Barton MD [address] [place], [place] [id number] Radiation Oncologist Radiation Oncology 05/05/19 Molina Charles MD [address] [place] [address] [address] [place] [address] Referring Physician Transplant Hepatology 12/15/20 Inés Lemus, RN [address] [facility] [address] [place] [address] Veneer Sorter 10/31/21 Karuna Maria OT Occupational Therapist Occupational Therapy 09/20/22 Renu Treviño NP [address] [facility] [address] [place] [address] Nurse Practitioner Radiation Oncology 11/08/22 Eladio Mcrae MD [address] [place], [place] [id number] Referring Physician Obstetrics and Gynecology 11/15/22 Tamiko Schroeder RN [address] [place] [address] Veneer Sorter 04/27/24 Briana Poe, TYRA [address] [facility] [address] [place] [address] SHOP Outpatient Barrel Rib Matting Machine Operator 04/30/24 05/28/24 Marina Le RN [address] [facility] [address] [place] [address] SHOP Outpatient Barrel Rib Matting Machine Operator 10/05/24 documented as of this encounter
--- OUTSIDE RECORDS SUMMARY | 2024-10-05 17:12 | XMS_ITS | Encounter Summary ---
Author Organization [facility] Address [address] [place] [address] Phone Care Team Providers Care Supervisor Belt And Link Assembly Name Role Phone Maddy Romano MD Primary Care Provider [phone] Astrid Haq NP Unavailable Manas Ibarra MD Unavailable Zion Barton MD Unavailable [phone] Molina Charles MD Unavailable [phone] Inés Lemus RN Unavailable [phone] Karuna Maria OT Unavailable Unavaila Renu Paul NP Unavailable Eladio Mcrae MD Unavailable Tamiko Schroeder RN Unavailable [phone] Briana Poe RN Unavailable Marina Le RN Unavailable [phone] Encounter Details Date Type Department Care Team (Latest Contact Info) Description 08/18/2020 Orders Only [facility] Scanning, Provider Social History Tobacco Use Types Packs/Day Years Used Date Smoking Tobacco: Former Cigarettes Q uit: 2010 Smokeless Tobacco: Never Comments No Sex and Gender Information Value Date Recorded Sex Assigned at Not on file Legal Sex Female 8:22 AM CUSTOMER EXPERT Gender Identity Female 11/15/2021 2:30 AM [...] COVID: Suspected 09/24/2024 09/24/2024 09/24/2024 3:13 PM CUSTOMER EXPERT documented as of this encounter Care Teams Supervisor Belt And Link Assembly Relationship Specialty Start Date End Date Maddy Romano MD [address] [place] [address] PCP - General 09/28/16 Astrid Haq NP [address] [place] [address] Nurse Practitioner Radiation Oncology 11/05/18 11/07/22 Manas Ibarra MD [address] [place] [address] Referring Physician Thoracic Surgery 11/05/18 Zion Barton MD [address] [place] [employer], [place] [id number] Radiation Oncologist Radiation Oncology 05/05/19 Molina Charles MD [address] [place] [address] [address] [place] [address] Referring Physician Transplant Hepatology 12/15/20 Inés Lemus, RN [address] [facility] [address] [place] [address] Instrumentation Chemist 10/31/21 Karuna Maria OT Occupational Therapist Occupational Therapy 09/20/22 Renu Treviño NP [address] [facility] [address] [place] [address] Nurse Practitioner Radiation Oncology 11/08/22 Eladio Mcrae MD [address] [place] [address] Referring Physician Obstetrics and Gynecology 11/15/22 Tamiko Schroeder RN [address] [place] [address] Instrumentation Chemist 04/27/24 Briana Poe, TYRA [address] [facility] [address] [place] [address] SHOP Outpatient Art Class Model 04/30/24 05/28/24 Marina Le RN [address] [facility] [address] [place] [address] SHOP Outpatient Art Class Model 10/05/24 documented as of this encounter
--- OUTSIDE RECORDS SUMMARY | 2024-10-05 17:12 | XMS_ITS | Clinical Summary ---
Author Organization [facility] Address [address] [place] [address] Care Team Providers Care Ell Tutor Name Role Phone Maddy Romano MD Primary Care Provider [phone] Manas Ibarra MD Unavailable Zion Barton MD Unavailable Molina Charles MD Unavailable [phone] Inés Lemus RN Unavailable [phone] Karuna Maria OT Unavailable Unavaila Renu Paul NP Unavailable [phone] Eladio Mcrae MD Unavailable [phone] Tamiko Schroeder RN Unavailable [phone] Marina Le RN Unavailable [phone] Allergies Active Allergy Reactions Criticality Noted Date Comments Moxifloxacin Itching Low 10/15/2019 Sulfa (Sulfonamide Antibiotics) Hives Medium Medications acetaminophen (TYLENOL) 325 mg tabletIndications :Pain Take 2 tablets (650 mg total) by mouth every 8 (eight) hours 023 Active rifAXIMin (Xifaxan) 550 mg tabletIndications :Hepatic encephalopathy (HCC),Cirrhosis of liver without ascites, unspecified hepatic cirrhosis type (HCC) Take 1 tablet (550 mg total) by mouth 2 (two) times a day 60 tablet 11 024 Active lactulose solution 10 gram/15mL Take 30 mL (20 g total) by mouth 3 (three) times a day 2700 mL 3 024 Active ondansetron (ZOFRAN) 4 mg tablet Take 1 tablet (4 mg total) by mouth every 8 (eight) hours as needed for nausea or vomiting 30 tablet 1 024 Active thiamine (VITAMIN B-1) 100 mg tablet Take 1 tablet (100 mg total) by mouth daily [address] (PROTONIX) 40 mg EC tablet Take 1 tablet (40 mg total) by mouth daily 30 tablet 11 024 2024 Active blood-glucose sensor (Dexcom G6 Sensor) deviceIndications :Type 2 diabetes mellitus with stage 3a chronic kidney disease, unspecified whether shelter insulin use (HCC) Will use 1 sensor every 10 days. 1 box = 3 sensors. 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 100 each 025 Active insulin lispro (ADMELOG) 100 unit/mL pen for injection Inject 5 Units under the skin 3 (three) times a day with meals (plus blood glucose mg/dL 150-199: 1 unit, 200-249: 2 units, 250-299: 3 units, 300-349: 4 units, 350 or greater: 5 units. Notify provider for blood glucose greater than 299 mg/dL. Max daily dose 30 units. Refer to After Visit Summary for Sliding Scale Insulin Instructions. 15 mL 025 2024 Active blood-glucose meter,continuous (Dexcom G7 Cardroom Supervisor) misc Use as directed. 1 each Active glucagon 1 mg kit Inject 1 mg into the muscle once as directed by provider for low blood sugar. 1 kit Active bumetanide (BUMEX) 1 mg tabletIndications :Stage 3b chronic kidney disease (HCC) Take 1 tablet (1 mg total) by mouth daily 270 tablet Active spironolactone (ALDACTONE) 100 mg tablet Take 1 tablet (100 mg total) by mouth daily 30 tablet 11 025 2025 Active atorvastatin (LIPITOR) 40 mg tablet Take 1 tablet (40 mg total) by mouth daily 30 tablet 2024 Active blood-glucose sensor (Dexcom G7 Sensor) device Use as directed. Change sensor every 10 days. 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 200 each 11 023 2024 Discontinued semaglutide (OZEMPIC) 1 mg/dose (4 mg/3 mL) pen injector injection Inject 1 mg under the skin every 7 days 3 mL 6 024 2024 Discontinued(S top Taking at Discharge) gabapentin (NEURONTIN) 100 mg capsule 1 capsule (100 mg total) 024 2024 Discontinued(S top Taking at Discharge) prochlorperazine (COMPAZINE) 10 mg tablet Take 1 tablet (10 mg total) by mouth nightly as needed for nausea or vomiting 30 tablet 3 024 2024 Discontinued(S top Taking at Discharge) insulin lispro (HumaLOG, ADMELOG) 100 unit/mL pen [...] Scale Insulin Instructions. 1.2 mL 3 024 2024 Discontinued(S top Taking at Discharge) insulin lispro (HumaLOG, ADMELOG) 100 unit/mL pen [...] Scale Insulin Instructions. 3 mL 3 024 2024 Discontinued(S top Taking at Discharge) zinc sulfate (ZINCATE) 50 mg zinc (220 mg) capsule Take 1 capsule (220 mg total) by mouth daily 30 capsule 024 2024 Discontinued(S top Taking at Discharge) insulin glargine 100 unit/mL (3 mL) pen for injection Inject 20 Units under the skin nightly 15 mL 024 2024 Discontinued(S top Taking at Discharge) spironolactone (ALDACTONE) 50 mg tablet Take 5 tablets (250 mg total) by mouth daily 150 tablet 024 2024 Discontinued bumetanide (BUMEX) 1 mg tabletIndications :Stage 3b chronic kidney disease (HCC) TAKE 2 TABLETS BY MOUTH EVERY MORNING AND 1 TABLET EVERY EVENING MEAL 270 tablet 024 2024 Discontinued cholestyramine (Questran) 4 gram packet Take 1 packet by mouth 2 (two) times a day 60 packet 2 024 2024 Discontinued(S top Taking at Discharge) phentermine (ADIPEX-P) 37.5 mg tabletIndications :Class 2 severe obesity due to excess calories with serious comorbidity and body mass index (BMI) of 39.0 to 39.9 in adult (HCC) Take 1 tablet (37.5 mg total) by mouth daily before breakfast 30 tablet 2 024 2024 Discontinued(S top Taking at Discharge) pantoprazole DR (PROTONIX) 40 mg EC tablet Take 1 tablet (40 mg total) by mouth daily 30 tablet 5 024 2024 Discontinued(S top Taking at Discharge) Linzess 145 mcg capsule TAKE 1 CAPSULE(145 MCG) BY MOUTH DAILY 30 capsule 3 024 2024 Discontinued(S top Taking at Discharge) spironolactone (ALDACTONE) 100 mg tablet Take 3 tablets (300 mg total) by mouth daily 90 tablet 11 025 2024 Discontinued nystatin 100,000 unit/mL suspensionIndicat ions:oral candidiasis Take 5 mL (500,000 Units total) by mouth 4 (four) times a day for 13 days 260 mL 025 2024 Discontinued blood-glucose sensor (Dexcom G7 Sensor) device Use as directed. Change sensor every 10 days. 3 each 025 2024 Discontinued Active Problems Problem Noted Date [...] 10/10/2022 Assessment & Plan (10/12/2022 12:20 PM ATMOSPHERIC CHEMIST): Episode of atrial flutter overnight with RVR up to 140s. Patient asymptomatic, normotensive. IV metoprolol X2 given to achieve rate control. [id number] vasc score of 3. TTE from 09/03 without valvular abnormalities. No new episodes today. Lytes within normal limits. 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 Lovenox is not ideal given her platelet count less than 100. Her INR is too high to consider warfarin. Anemia 10/05/2022 Assessment & Plan (10/11/2022 12:28 PM ATMOSPHERIC CHEMIST): - Hgb has down trended from 8 [...] 10/05/2022 Assessment & Plan (10/11/2022 12:45 PM ATMOSPHERIC CHEMIST): -Continue home dose of metoprolol 25mg BID Hepatic encephalopathy 07/31/2022 Assessment & Plan (03/06/2023 5:49 PM CDT): Good control on current medical management. No changes indicated. Assessment & Plan (08/03/2022 1:05 PM ATMOSPHERIC CHEMIST): Pt with hx of LYONS cirrhosis presenting with progressively worsening mental status over past several weeks. On initial examination patient was AAOx1, on subsequent exam she is now AAOx2 with appropriate responses. NH3 75. Unfortunately no safe area for bedside diagnostic paracentesis. Slurred speech and concerns for swallowing. SUPERVISOR PRODUCTION MANAGING completed swallow study and normal. Head CT: No acute intracranial abnormality. -Awaiting Liver MRI -Increased Lactulose to 4x daily (only 1 stool on 08/02) - Rifaximin and Lactulose (goal 3-5 bowel movements) - Fall precautions. - PT/OT: Home with assistance. Assessment & Plan (08/02/2022 2:34 PM ATMOSPHERIC CHEMIST): Pt with hx of LYONS cirrhosis presenting with progressively worsening mental status over past several weeks. On initial examination patient was AAOx1, on subsequent exam she is now AAOx2 with appropriate responses. NH3 75. Unfortunately no safe area for bedside diagnostic paracentesis. Slurred speech and concerns for swallowing. SUPERVISOR PRODUCTION MANAGING completed swallow study and normal. Head CT: No acute intracranial abnormality. - Rifaximin and Lactulose (goal 3-5 bowel movements) - Fall precautions. - PT/OT: Home with assistance. - SUPERVISOR PRODUCTION MANAGING completed bedside swallow and Normal Assessment & Plan (08/01/2022 3:28 PM ATMOSPHERIC CHEMIST): Pt with hx of LYONS cirrhosis presenting [...] for swallowing. - Fall precautions. - SUPERVISOR PRODUCTION MANAGING/PT/OT Consults. Assessment & Plan (08/01/2022 4:16 AM ATMOSPHERIC CHEMIST): Pt with hx of LYONS cirrhosis presenting [...] (10/22/2022): Added automatically from request for surgery [id number] Volume overload 10/06/2022 05/29/2024 Assessment & Plan (10/10/2022 1:09 PM ATMOSPHERIC CHEMIST): In the setting of LYONS cirrhosis. Diuretics [...] 10/04/2022 024 Shortness of breath 10/02/2022 07/15/20 Esophageal dysphagia 08/22/2022 Overview (08/22/2022): Added automatically from request for surgery [id number] Portal vein thrombosis 08/01/202208/22 Assessment & Plan (08/03/2022 1:09 PM ATMOSPHERIC CHEMIST): -Apixaban 2.5mg BID Assessment & Plan (08/02/2022 2:39 PM ATMOSPHERIC CHEMIST): -Apixaban 2.5mg BID Assessment & Plan (08/01/2022 3:27 PM ATMOSPHERIC CHEMIST): -Apixaban 2.5mg BID Assessment & Plan (08/01/2022 4:17 AM ATMOSPHERIC CHEMIST): Continue home apixaban LYONS (nonalcoholic steatohepatitis) 11/02/2021 07/15/2024 Abnormal mammogram of right breast 11/02/2020 08/22/2022 Preop cardiovascular exam 09/23/2019 Overview (09/23/2019): Added automatically from request for surgery [id number] Colon cancer screening 04/21/201908/22 Overview (04/21/2019): Added automatically from request for surgery [id number] Esophageal varices without bleeding (CMS/HCC) 09/05/31 1908/22/2022 Overview (04/21/2019): Added automatically from request for surgery [id number] Steatosis of liver 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 - Her blood sugars were initially on the lower side (90-100) in setting of poor po intake and TR. Continue SSI only for now and will uptitrate as needed. - Continue Lantus 10u/daily + lispro 4TID Assessment & Plan (08/03/2022 1:09 PM ATMOSPHERIC CHEMIST): Home regimen of toujeo 42 units + SSI. -Lantus, Lispro TID AC and SSI -No Juice Diet -Consistent Carb+ 2gm NA diet. -CTM BGL Assessment & Plan (08/02/2022 2:38 PM ATMOSPHERIC CHEMIST): Home regimen of toujeo 42 units + SSI. -Lantus, Lispro TID AC and SSI -No Juice Diet -Consistent Carb+ 2gm NA diet. -CTM BGL Assessment & Plan (08/01/2022 3:26 PM ATMOSPHERIC CHEMIST): Home regimen of toujeo 42 units + SSI. Given TR and decreased PO intake, insulin regimen reduced to Lantus 20units. - Continue on 2g Na + DM2 diet - CTM BGL Assessment & Plan (08/01/2022 4:17 AM ATMOSPHERIC CHEMIST): Home regimen of toujeo 42 units + SSI Given TR and decreased PO intake, will dose reduce insulin regimen, 20units + SSIand uptitrate as needed Continue on 2g Na + DM2 diet Encounters Date Type Department Care Team Description 10/05/2024 Results Follow-Up [facility] Transplant Liver [id number] [place] [address] Inés Lemus, TYRA 10/05/2024 Telephone [facility] Transplant Liver [id number] [place] [address] Inés Lemus, TYRA 10/05/2024 SHOP/CHAP Initial Outreach [facility] OP CASE MANAGEMENT [address] [place] [address] Marina Le, TYRA 10/05/2024 SHOP/CHAP Initial Eligibility Review [facility] OP CASE MANAGEMENT [address] [place] [address] Marina Le, TYRA 09/29/2024 Documentation [facility] Transplant Liver [address] [facility] [address] [place], [place] [address] [place] [address] Chelsea Barker, RN 09/28/2024 Documentation [facility] Transplant Liver [address] [place] [address] [place], [place] [address]op [facility] [place] [address] Chelsea Barker, RN 09/24/2024 12:08 PM ATMOSPHERIC CHEMIST - 10/02/2024 5:03 PM ATMOSPHERIC CHEMIST Hospital Encounter [facility] [address] [place] [phone] Paxton Hawk MD Mudd, Peter Shine MD PhD Lexis, MD Sandra Michaels Alvin, MD Stephenson, Kevin Blakeslee, MD Gastrointestinal hemorrhage, unspecified gastrointestinal hemorrhage type (Primary Dx); Hepatic encephalopathy (HCC); Stage 3b chronic kidney disease (HCC); Dysphagia, oropharyngeal; Physical debility Discharge Disposition: Discharge to home or self care 09/24/2024 Telephone [facility] Transplant Liver [address] [place] [address] [address] [employer] [phone] [place] [address] Inés Lemus RN 09/24/2024 Telephone [facility] [address] [place] [address] Medical Office Building [address], [address] [place] [address] Gregory Del Cid MD 09/21/2024 10:00 AM [facility] - 09/21/2024 11:59 PM [facility] Hospital Encounter [address] [address] ESRD (end stage renal disease) (CMS/HCC) (HCC) Discharge Disposition: Discharge to home or self care 09/15/2024 Documentation [facility] [address] [place] [address] 12th [place] [address] [place] [address] Alexandra Issa RN 09/14/2024 Telephone [facility] Transplant Liver [address] [place] [address] [address] [facility] [phone] [place] [address] Inés Lemus, TYRA 09/07/2024 Orders Only [facility] Scanning, Provider 08/30/2024 Telephone [facility] Transplant Liver [address] [place] [address] [place] [address] [phone] [place] [address] Inés Lemus, TYRA 08/28/2024 Documentation [facility] Medicine 12th [place] [address] [place] [address] Alexandra Issa, TYRA 08/27/2024 1:40 PM ATMOSPHERIC CHEMIST [facility] [address] [place] [address] LYONS (nonalcoholic steatohepatitis) 08/25/2024 Documentation [facility] [address] [facility] Advanced Medicine 12th [place] [address] [place] [address] Alexandra Issa, TYRA 08/25/2024 Telephone [facility] Transplant Liver [address] [facility] [address] [employer] [phone] [place] [address] Inés Lemus, TYRA 08/25/2024 Documentation [facility] [address] [facility] Advanced Medicine 12th [place] [address] [place] [address] Alexandra Issa RN 08/24/2024 10:00 AM ATMOSPHERIC CHEMIST - 08/24/2024 11:59 PM ATMOSPHERIC CHEMIST Hospital [facility] [address] [place] [address] ESRD (end stage renal disease) (CMS/HCC) (HCC) Discharge Disposition: Discharge to home or self care 08/24/2024 9:00 AM ATMOSPHERIC CHEMIST Social Work [facility] [address] [facility], 8th Floor, [place] [address] Ragini Garner LCSW 08/24/2024 Orders Only [facility] Scanning, Provider 08/17/2024 Telephone [facility] Transplant Liver [address] [facility] [address] Mailstop [phone] [place] [address] Inés Lemus, TYRA 08/07/2024 Telephone [facility] Transplant Liver [address] [facility] [address] Mail[address] [phone] [place] [address] Inés Lemus, TYRA 08/06/2024 4:35 PM ATMOSPHERIC CHEMIST Lab [facility] [address] [place] [address] Hepatic encephalopathy (HCC); Type 2 diabetes mellitus with stage 4 chronic kidney disease, with long-term current use of insulin (HCC); Hepatic cirrhosis, unspecified hepatic cirrhosis type, unspecified whether ascites present (HCC); Dysuria 08/06/2024 3:45 PM ATMOSPHERIC CHEMIST Office Visit [facility] Medical Office Building [address], [address] [place] [address] Taiwo Vázquez MD Hepatic cirrhosis, unspecified hepatic [...] LYONS (CMS/HCC) (HCC); Dysuria 08/03/2024 Orders Only [facility] Scanning, Provider 07/31/2024 Documentation [facility] [address] [facility] Advanced Medicine 12th [place] [address] [place] [address] Alexandra Issa RN 07/31/2024 Documentation [facility] Transplant Liver [address] [facility] [address] [employer] [phone] [place] [address] Chelsea Barker RN 07/31/2024 Orders Only [facility] [address] [facility] Advanced Medicine 12th [place] [address] [place] [address] Alexandra Issa RN 07/30/2024 3:45 PM ATMOSPHERIC CHEMIST [facility] [address] [place] [phone] ESRD (end stage renal disease) (CMS/HCC) (HCC); LYONS (nonalcoholic steatohepatitis) 07/24/2024 Telephone [facility] Transplant Liver [address] [facility] [address] [phone] [place] [address] Inés Lemus, TYRA 07/24/2024 Telephone [facility] Transplant Liver [address] [facility] [address] [phone] [place] [address] Inés Lemus, TYRA 07/22/2024 Documentation [facility] [address] [facility] [address]th [place] [address] [place] [address] Alexandra Issa, TYRA 07/20/2024 10:00 AM ATMOSPHERIC CHEMIST - 07/20/2024 11:59 PM ATMOSPHERIC CHEMIST Hospital Encounter [facility] [address] [place] [address] ESRD (end stage renal disease) (CMS/HCC) (HCC) Discharge Disposition: Discharge to home or self care 07/20/2024 Orders Only [facility] Scanning, Provider 07/17/2024 Telephone [facility] Specialty Services [address] [place] [address] Mayra Machuca RN 07/17/2024 Telephone [facility] Transplant Liver [address] [facility] [address] [phone] [place] [address] Inés Lemus, TYRA 07/15/2024 10:30 AM ATMOSPHERIC CHEMIST Office Visit [facility] [address] [facility] 12th [place] [address] [place] [address] Britany Toribio MD Cirrhosis of liver without ascites, unspecified hepatic cirrhosis type (HCC) (Primary Dx) 07/08/2024 Documentation [facility] [address] [facility] 12th [place] [address] [place] [address] Alexandra Issa, RN from Last 3 Months Immunizations Immunization Administration Dates Next Due Hep B Vaccine 01/22/2024,12/18/2023 Influenza, Quadrivalent, Spl it, Intramuscular 05/01/2019,05/26/2015 Influenza, Quadrivalent, Spl it, Preservative Free, Intramuscular 07/02/2023,04/29/2020,05/01/2019,05/09,05/08/2018,05/23/2017,05/17/2016 Influenza, Trivalent, IM (MDV) 04/28/2021,2013 Influenza, Trivalent, Preser vative Free, Intramuscular 05/29/2013 [employer] ([employer]) SARS-CoV-2 Vaccination 10/17/2020 Pneumococcal Conjugate PCV [...] Former Cigarettes 0.5 51 1 970 - 2021 Smokeless Tobacco: Never Tobacco Cessation:Counseling Given: Not Answered [facility] Utilities Answer Date Recorded In the [...] often do you attend chur ch or voodoo services? Never 10/05/2024 Do you belong to any clubs o r organizations such as catholic groups, unions, fraternal or athletic groups, or [...] place to sleep or slept in a long term (including now)? No 12/31/2022 Housing Stability Vital Sign Answer Terrance e Recorded In the last 12 months, was t here a time when you were not able to pay the mortgage or rent on time? No 10/05/2024 In the past 12 months, how m any times have you moved where you were living? 0 10/05/2024 At any time in the past 12 m [facility], were you homeless or living in a long term (including now)? No 10/05/2024 Personal Safety Answer Date Recorded Have you ever been in or are you currently in a harmful physical or emotional relationship or is someone making you feel afraid or unsafe? 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 file Obstetrics History Last Filed Vital Signs Vital Sign Reading Time Taken Comments Blood Pressure 133/57 10/02/2024 2:45 PM ATMOSPHERIC CHEMIST Pulse 100 10/02/2024 2:45 PM ATMOSPHERIC CHEMIST Temperature 36.6 C (97.9 F) 10/02/2024 2:45 PM ATMOSPHERIC CHEMIST Respiratory Rate 17 10/02/2024 2:45 PM ATMOSPHERIC CHEMIST Oxygen Saturation 99% 10/02/2024 2:45 PM ATMOSPHERIC CHEMIST Inhaled Oxygen Concentration - - Weight 110.7 kg (244 lb) 09/24/2024 6:35 PM ATMOSPHERIC CHEMIST Height 170.2 cm (5' 7 ) 09/24/2024 6:35 PM ATMOSPHERIC CHEMIST Body Mass Index 38.22 09/24/2024 6:35 PM ATMOSPHERIC CHEMIST Plan of Treatment Scheduled Procedures Name Priority Associated Diagnoses Date/Ti me COLONOSCOPY Routine adult health maintenance LYONS (nonalcoholic steatohepatitis) Health Maintenance Due Date Last Done Comments Dilated Eye Exam 1960 Foot Exam 1960 Regular Well Visit/Exam 18-64 1978 Pneumococcal vaccine <65 (3 of 3 - PCV20 or PCV21) 05/26/2020 05/26/2015, 03/24/2014 Albumin Creatinine Ratio, Urine 03/01/2022 Depression Screening 01/27/2024 01/26/2023, 01/26/2023, 01/05/2023, Additional history exists DTaP/Tdap/Td Vaccine (2 - Td or Tdap) 03/24/2024 03/24/2014 Covid-19 Vaccine (4 - 2023-2 5 season) 2024 07/02/2023, 09/11/2021, 10/17/2020 Hemoglobin A1C 03/29/2025 09/29/2024, 09/12, 08/06/2024, Additional history exists Lipid Panel 04/22/2025 04/22/2024, 03/13, 04/02/2024, Additional history exists Breast Cancer Screening-Mammogram 04/27/2025 024, 12/06/2021 Cervical Cancer Screening 04/28/2025 04/28/2024, eGFR 10/01/2025 10/01/2024, 09/12, 09/29/2024, Additional history exists Colon Cancer Screening-Colonoscopy 05/30/2032 05/30/2022, 10/26/2019 Zoster Vaccine Completed 02/17/2020, 05/29/2019 Colon Cancer Screening-CT Colonography Discontinued 05/30/2022, 10/26/2019 Colon Cancer Screening-DNA Stool Discontinued 05/30/20, 10/26/2019 Colon Cancer Screening-FIT Discontinued 05/30/2022, Colon Cancer Screening-Sigmoidoscopy Discontinued 05/30/2022, 10/26/2019 Hepatitis C Screening Completed 06/16/2023 , 06/16/2023, 01/05/2023, Additional history exists Influenza Vaccine Completed 05/04/2024, , 04/28/2021, Additional history exists Goals Goal Patient Goal Type Associated Problems [...] meds except the atorvastatin was sent to [facility] outpt pharmacy but not sent home with her. [facility] called [facility] to request that the prescription be transferred. Level of assistance will meet patient's needs Care Plan Problems In Home Environment Marina Madera RN Procedures Procedure Name Priority Date/Time Associated Diagnosis Comments POCT GLUCOSE DEVICE Routine 10/02/2024 4:21 PM ATMOSPHERIC CHEMIST SUPERVISOR PRODUCTION MANAGING EVALUATE AND TREAT FIBEROPTIC ENDOSCOPIC SWALLOW Routine 10/02/2024 1:07 PM ATMOSPHERIC CHEMIST POCT GLUCOSE DEVICE Routine 10/02/2024 11:33 AM ATMOSPHERIC CHEMIST POCT GLUCOSE DEVICE Routine 10/02/2024 7:14 AM ATMOSPHERIC CHEMIST POCT GLUCOSE DEVICE Routine 10/02/2024 4:19 AM ATMOSPHERIC CHEMIST EGFR Routine 10/01/2024 9:18 PM ATMOSPHERIC CHEMIST MAGNESIUM Routine 10/01/2024 9:18 PM ATMOSPHERIC CHEMIST PHOSPHORUS Routine 10/01/2024 9:18 PM ATMOSPHERIC CHEMIST PROTIME-INR Routine 10/01/2024 9:18 PM ATMOSPHERIC CHEMIST COMPREHENSIVE METABOLIC PANEL Routine 10/01/2024 9:18 PM ATMOSPHERIC CHEMIST POCT GLUCOSE DEVICE Routine 10/01/2024 7:35 PM ATMOSPHERIC CHEMIST POCT GLUCOSE DEVICE Routine 10/01/2024 7:34 PM ATMOSPHERIC CHEMIST POCT GLUCOSE DEVICE Routine 10/01/2024 5:12 PM ATMOSPHERIC CHEMIST POCT GLUCOSE DEVICE Routine 10/01/2024 11:45 AM ATMOSPHERIC CHEMIST POCT GLUCOSE DEVICE Routine 10/01/2024 7:45 AM ATMOSPHERIC CHEMIST EGFR Routine 09/30/2024 9:22 PM ATMOSPHERIC CHEMIST DIFFERENTIAL AUTO Timed 09/30/2024 9:22 PM ATMOSPHERIC CHEMIST VITAMIN D 25 HYDROXY Timed 09/30/2024 9:22 PM ATMOSPHERIC CHEMIST PTH Timed 09/30/2024 9:22 PM ATMOSPHERIC CHEMIST CBC WITH AUTO DIFFERENTIAL Timed 09/30/2024 9:22 PM ATMOSPHERIC CHEMIST MAGNESIUM Routine 09/30/2024 9:22 PM ATMOSPHERIC CHEMIST PHOSPHORUS Routine 09/30/2024 9:22 PM ATMOSPHERIC CHEMIST PROTIME-INR Routine 09/30/2024 9:22 PM ATMOSPHERIC CHEMIST COMPREHENSIVE METABOLIC PANEL Routine 09/30/2024 9:22 PM ATMOSPHERIC CHEMIST POCT GLUCOSE DEVICE Routine 09/30/2024 7:58 PM ATMOSPHERIC CHEMIST POCT GLUCOSE DEVICE Routine 09/30/2024 4:20 PM ATMOSPHERIC CHEMIST POCT GLUCOSE DEVICE Routine 09/30/2024 11:43 AM ATMOSPHERIC CHEMIST POCT GLUCOSE DEVICE Routine 09/30/2024 7:54 AM ATMOSPHERIC CHEMIST POCT GLUCOSE DEVICE Routine 09/30/2024 7:36 AM ATMOSPHERIC CHEMIST POCT GLUCOSE DEVICE Routine 09/30/2024 12:28 AM ATMOSPHERIC CHEMIST EGFR Routine 09/29/2024 8:49 PM ATMOSPHERIC CHEMIST MAGNESIUM Routine 09/29/2024 8:49 PM ATMOSPHERIC CHEMIST PHOSPHORUS Routine 09/29/2024 8:49 PM ATMOSPHERIC CHEMIST PROTIME-INR Routine 09/29/2024 8:49 PM ATMOSPHERIC CHEMIST COMPREHENSIVE METABOLIC PANEL Routine 09/29/2024 8:49 PM ATMOSPHERIC CHEMIST POCT GLUCOSE DEVICE Routine 09/29/2024 8:08 PM ATMOSPHERIC CHEMIST POCT GLUCOSE DEVICE Routine 09/29/2024 4:50 PM ATMOSPHERIC CHEMIST POCT GLUCOSE DEVICE Routine 09/29/2024 11:35 AM ATMOSPHERIC CHEMIST [employer] EVALUATE AND TREAT FIBEROPTIC ENDOSCOPIC SWALLOW Routine 09/29/2024 10:55 AM ATMOSPHERIC CHEMIST [employer] EVALUATE AND TREAT VIDEOFLUOROSCOPIC SWALLOW STUDY Routine 09/29/2024 10:55 AM ATMOSPHERIC CHEMIST POCT GLUCOSE DEVICE Routine 09/29/2024 7:34 AM ATMOSPHERIC CHEMIST POCT GLUCOSE DEVICE Routine 09/29/2024 4:49 AM ATMOSPHERIC CHEMIST POCT GLUCOSE DEVICE Routine 09/29/2024 12:25 AM ATMOSPHERIC CHEMIST HEMOGLOBIN A1C Routine 09/28/2024 9:17 PM ATMOSPHERIC CHEMIST EGFR Routine 09/28/2024 9:17 PM ATMOSPHERIC CHEMIST DIFFERENTIAL AUTO Routine 09/28/2024 9:17 PM ATMOSPHERIC CHEMIST MAGNESIUM Routine 09/28/2024 9:17 PM ATMOSPHERIC CHEMIST PHOSPHORUS Routine 09/28/2024 9:17 PM ATMOSPHERIC CHEMIST PROTIME-INR Routine 09/28/2024 9:17 PM ATMOSPHERIC CHEMIST CBC WITH AUTO DIFFERENTIAL Routine 09/28/2024 9:17 PM ATMOSPHERIC CHEMIST COMPREHENSIVE METABOLIC PANEL Routine 09/28/2024 9:17 PM ATMOSPHERIC CHEMIST POCT GLUCOSE DEVICE Routine 09/28/2024 7:57 PM ATMOSPHERIC CHEMIST POCT GLUCOSE DEVICE Routine 09/28/2024 4:31 PM ATMOSPHERIC CHEMIST POCT GLUCOSE DEVICE Routine 09/28/2024 11:23 AM ATMOSPHERIC CHEMIST POCT GLUCOSE DEVICE Routine 09/28/2024 8:01 AM ATMOSPHERIC CHEMIST POCT GLUCOSE DEVICE Routine 09/28/2024 4:52 AM ATMOSPHERIC CHEMIST POCT GLUCOSE DEVICE Routine 09/28/2024 12:29 AM ATMOSPHERIC CHEMIST EGFR Routine 09/28/2024 12:06 AM ATMOSPHERIC CHEMIST DIFFERENTIAL AUTO Routine 09/28/2024 12:06 AM ATMOSPHERIC CHEMIST MAGNESIUM Routine 09/28/2024 12:06 AM ATMOSPHERIC CHEMIST PHOSPHORUS Routine 09/28/2024 12:06 AM ATMOSPHERIC CHEMIST PROTIME-INR Routine 09/28/2024 12:06 AM ATMOSPHERIC CHEMIST CBC WITH AUTO DIFFERENTIAL Routine 09/28/2024 12:06 AM ATMOSPHERIC CHEMIST COMPREHENSIVE METABOLIC PANEL Routine 09/28/2024 12:06 AM ATMOSPHERIC CHEMIST POCT GLUCOSE DEVICE Routine 09/27/2024 11:55 PM ATMOSPHERIC CHEMIST POCT GLUCOSE DEVICE Routine 09/27/2024 8:03 PM ATMOSPHERIC CHEMIST POCT GLUCOSE DEVICE Routine 09/27/2024 4:26 PM ATMOSPHERIC CHEMIST POCT GLUCOSE DEVICE Routine 09/27/2024 11:49 AM ATMOSPHERIC CHEMIST POCT GLUCOSE DEVICE Routine 09/27/2024 8:05 AM ATMOSPHERIC CHEMIST POCT GLUCOSE DEVICE Routine 09/27/2024 4:24 AM ATMOSPHERIC CHEMIST POCT GLUCOSE DEVICE Routine 09/26/2024 11:20 PM ATMOSPHERIC CHEMIST EGFR Routine 09/26/2024 9:23 PM ATMOSPHERIC CHEMIST DIFFERENTIAL AUTO Routine 09/26/2024 9:23 PM ATMOSPHERIC CHEMIST MAGNESIUM Routine 09/26/2024 9:23 PM ATMOSPHERIC CHEMIST PHOSPHORUS Routine 09/26/2024 9:23 PM ATMOSPHERIC CHEMIST PROTIME-INR Routine 09/26/2024 9:23 PM ATMOSPHERIC CHEMIST CBC WITH AUTO DIFFERENTIAL Routine 09/26/2024 9:23 PM ATMOSPHERIC CHEMIST COMPREHENSIVE METABOLIC PANEL Routine 09/26/2024 9:23 PM ATMOSPHERIC CHEMIST POCT GLUCOSE DEVICE Routine 09/26/2024 7:53 PM ATMOSPHERIC CHEMIST POCT GLUCOSE DEVICE Routine 09/26/2024 4:37 PM ATMOSPHERIC CHEMIST EGFR Timed 09/26/2024 3:40 PM ATMOSPHERIC CHEMIST BASIC METABOLIC PANEL Timed 09/26/2024 3:40 PM ATMOSPHERIC CHEMIST POCT GLUCOSE DEVICE Routine 09/26/2024 11:16 AM ATMOSPHERIC CHEMIST POCT GLUCOSE DEVICE Routine 09/26/2024 9:40 AM ATMOSPHERIC CHEMIST LACTATE Timed 09/26/2024 8:16 AM ATMOSPHERIC CHEMIST POCT GLUCOSE DEVICE Routine 09/26/2024 7:45 AM ATMOSPHERIC CHEMIST POCT GLUCOSE DEVICE Routine 09/26/2024 4:[address] ABDOMEN PELVIS WO CONTRAST IP Routine 09/26/2024 3:17 AM ATMOSPHERIC CHEMIST LACTATE Timed 09/26/2024 12:44 AM ATMOSPHERIC CHEMIST POCT GLUCOSE DEVICE Routine 09/26/2024 12:08 AM ATMOSPHERIC CHEMIST EGFR Routine 09/25/2024 10:48 PM ATMOSPHERIC CHEMIST DIFFERENTIAL AUTO Routine 09/25/2024 10:48 PM ATMOSPHERIC CHEMIST PROTIME-INR Routine 09/25/2024 10:48 PM ATMOSPHERIC CHEMIST CBC WITH AUTO DIFFERENTIAL Routine 09/25/2024 10:48 PM ATMOSPHERIC CHEMIST COMPREHENSIVE METABOLIC PANEL Routine 09/25/2024 10:48 PM ATMOSPHERIC CHEMIST POCT GLUCOSE DEVICE Routine 09/25/2024 8:27 PM ATMOSPHERIC CHEMIST POCT GLUCOSE DEVICE Routine 09/25/2024 6:12 PM ATMOSPHERIC CHEMIST POCT GLUCOSE DEVICE Routine 09/25/2024 4:12 PM ATMOSPHERIC CHEMIST CRITICAL RESULT CALLBACK CHEMISTRY Timed 09/25/2024 3:24 PM ATMOSPHERIC CHEMIST LACTATE Timed 09/25/2024 3:24 PM ATMOSPHERIC CHEMIST SODIUM, URINE, RANDOM Routine 09/25/2024 3:24 PM ATMOSPHERIC CHEMIST URINALYSIS AND REFLEX TO MICROSCOPIC AND CULTURE STAT 09/25/2024 3:24 PM ATMOSPHERIC CHEMIST POCT GLUCOSE DEVICE Routine 09/25/2024 2:41 PM ATMOSPHERIC CHEMIST POCT GLUCOSE DEVICE Routine 09/25/2024 12:32 PM ATMOSPHERIC CHEMIST TROPONIN I HIGH-SENSITIVITY 4-HOUR Timed 09/25/2024 11:38 AM ATMOSPHERIC CHEMIST POCT GLUCOSE DEVICE Routine 09/25/2024 11:14 AM ATMOSPHERIC CHEMIST CRITICAL RESULT CALLBACK CARDIO CHEM Timed 09/25/2024 9:51 AM ATMOSPHERIC CHEMIST TROPONIN I HIGH-SENSITIVITY 2-HOUR Timed 09/25/2024 9:51 AM ATMOSPHERIC CHEMIST POCT GLUCOSE DEVICE Routine 09/25/2024 9:19 AM ATMOSPHERIC CHEMIST TROPONIN I HIGH-SENSITIVITY SERIES (BASELINE, 2HR, 4HR, 6HR) Timed 09/25/2024 7:44 AM ATMOSPHERIC CHEMIST LACTATE Timed 09/25/2024 7:44 AM ATMOSPHERIC CHEMIST POCT GLUCOSE DEVICE Routine 09/25/2024 7:32 AM ATMOSPHERIC CHEMIST POCT GLUCOSE DEVICE Routine 09/25/2024 4:12 AM ATMOSPHERIC CHEMIST POCT GLUCOSE DEVICE Routine 09/25/2024 2:52 AM ATMOSPHERIC CHEMIST XR ABDOMEN AP 1 VIEW IP Routine 09/25/2024 1:32 AM ATMOSPHERIC CHEMIST POCT GLUCOSE DEVICE Routine 09/25/2024 12:11 AM ATMOSPHERIC CHEMIST MAGNESIUM Routine 09/24/2024 11:56 PM ATMOSPHERIC CHEMIST EGFR Routine 09/24/2024 11:56 PM ATMOSPHERIC CHEMIST DIFFERENTIAL AUTO Routine 09/24/2024 11:56 PM ATMOSPHERIC CHEMIST PROTIME-INR Routine 09/24/2024 11:56 PM ATMOSPHERIC CHEMIST [id number], TUMOR MARKER Timed 09/24/2024 11:56 PM ATMOSPHERIC CHEMIST CBC WITH AUTO DIFFERENTIAL Routine 09/24/2024 11:56 PM ATMOSPHERIC CHEMIST PHOSPHORUS Routine 09/24/2024 11:56 PM ATMOSPHERIC CHEMIST COMPREHENSIVE METABOLIC PANEL Routine 09/24/2024 11:56 PM ATMOSPHERIC CHEMIST TROPONIN I HIGH-SENSITIVITY 6-HOUR Timed 09/24/2024 11:56 PM ATMOSPHERIC CHEMIST CRITICAL RESULT CALLBACK CHEMISTRY Timed 09/24/2024 11:55 PM ATMOSPHERIC CHEMIST SEPSIS LACTATE WITH REFLEX Timed 09/24/2024 11:55 PM ATMOSPHERIC CHEMIST POCT GLUCOSE DEVICE Routine 09/24/2024 11:08 PM ATMOSPHERIC CHEMIST XR CHEST 1 VIEW ED Urgent/IP Urgent 09/24/2024 11:02 PM ATMOSPHERIC CHEMIST US LIVER DOPPLER COMPLETE IP Routine 09/24/2024 9:07 PM ATMOSPHERIC CHEMIST POCT GLUCOSE DEVICE Routine 09/24/2024 8:08 PM ATMOSPHERIC CHEMIST HI CRITICAL CARE ILL/INJURED PATIENT INIT 30-74 MIN Routine 09/24/2024 4:23 PM ATMOSPHERIC CHEMIST CRITICAL RESULT CALLBACK CHEMISTRY Timed 09/24/2024 2:37 PM ATMOSPHERIC CHEMIST SEPSIS LACTATE WITH REFLEX Timed 09/24/2024 2:37 PM ATMOSPHERIC CHEMIST TROPONIN I HIGH-SENSITIVITY 2-HOUR Timed 09/24/2024 2:36 PM ATMOSPHERIC CHEMIST BLOOD CULTURE STAT 09/24/2024 2:36 PM ATMOSPHERIC CHEMIST RESPIRATORY PATHOGEN PANEL STAT 09/24/2024 1:39 PM ATMOSPHERIC CHEMIST BLOOD CULTURE STAT 09/24/2024 1:39 PM ATMOSPHERIC CHEMIST XR CHEST 1 VIEW ED 09/24/2024 12:59 PM ATMOSPHERIC CHEMIST POCT KETONE, BLOOD Routine 09/24/2024 12:40 PM ATMOSPHERIC CHEMIST POCT GLUCOSE DEVICE Routine 09/24/2024 12:37 PM ATMOSPHERIC CHEMIST EGFR STAT 09/24/2024 12:35 PM ATMOSPHERIC CHEMIST DIFFERENTIAL AUTO STAT 09/24/2024 12:35 PM ATMOSPHERIC CHEMIST CRITICAL RESULT CALLBACK CHEMISTRY STAT 09/24/2024 12:35 PM ATMOSPHERIC CHEMIST AMMONIA STAT 09/24/2024 12:35 PM ATMOSPHERIC CHEMIST TYPE AND SCREEN STAT 09/24/2024 12:35 PM ATMOSPHERIC CHEMIST APTT STAT 09/24/2024 12:35 PM ATMOSPHERIC CHEMIST PROTIME-INR STAT 09/24/2024 12:35 PM ATMOSPHERIC CHEMIST TROPONIN I HIGH-SENSITIVITY SERIES (BASELINE, 2HR, 4HR, 6HR) STAT 09/24/2024 12:35 PM ATMOSPHERIC CHEMIST SEPSIS LACTATE WITH REFLEX STAT 09/24/2024 12:35 PM ATMOSPHERIC CHEMIST HEPATIC FUNCTION PANEL STAT 12:35 PM ATMOSPHERIC CHEMIST BASIC METABOLIC PANEL STAT 09/24/2024 12:35 PM ATMOSPHERIC CHEMIST CBC WITH AUTO DIFFERENTIAL STAT 09/24/2024 12:35 PM ATMOSPHERIC CHEMIST BLOOD GAS, VENOUS STAT 09/24/2024 12:[address] NE[address] OUTSIDE CONSULT Routine 09/24/2024 12:33 PM ATMOSPHERIC CHEMIST XR TRANSFER OF OUTSIDE FILMS Routine 09/24/2024 12:28 PM ATMOSPHERIC CHEMIST HLA ANTIBODY SCREEN - SAB (CLASS I AND CLASS II) Routine 09/21/2024 1:00 PM ATMOSPHERIC CHEMIST ESRD (end stage renal disease) (CMS/HCC) (HCC) HLA ANTIBODY SCREEN BY PRA OR SAB PER SCHEDULE (CLASS I AND CLASS II) Routine 09/21/2024 1:00 PM ATMOSPHERIC CHEMIST ESRD (end stage renal disease) (CMS/HCC) (HCC) SCAN - LABS 09/07/2024 EGFR Routine 08/27/2024 1:35 PM ATMOSPHERIC CHEMIST LYONS (nonalcoholic steatohepatitis) COMPREHENSIVE METABOLIC PANEL Routine 08/27/2024 1:35 PM ATMOSPHERIC CHEMIST LYONS (nonalcoholic steatohepatitis) PROTIME-INR Routine 08/27/2024 1:35 PM ATMOSPHERIC CHEMIST LYONS (nonalcoholic steatohepatitis) HLA ANTIBODY SCREEN BY PRA OR SAB PER SCHEDULE (CLASS I AND CLASS II) Routine 08/24/2024 10:00 AM ATMOSPHERIC CHEMIST ESRD (end stage renal disease) (CMS/HCC) (HCC) SCAN - LABS 08/24/2024 URINALYSIS, MICROSCOPIC ONLY Routine 08/06/2024 5:12 PM ATMOSPHERIC CHEMIST Dysuria URINALYSIS AND REFLEX TO MICROSCOPIC AND CULTURE Routine 08/06/2024 5:12 PM ATMOSPHERIC CHEMIST Dysuria EGFR Routine 08/06/2024 5:04 PM ATMOSPHERIC CHEMIST Hepatic cirrhosis, unspecified hepatic cirrhosis type, unspecified whether ascites present (HCC) Hepatic encephalopathy (HCC) DIFFERENTIAL AUTO Routine 08/06/2024 5:04 PM ATMOSPHERIC CHEMIST Hepatic cirrhosis, unspecified hepatic cirrhosis type, unspecified whether ascites present (HCC) Hepatic encephalopathy (HCC) CBC WITH AUTO DIFFERENTIAL Routine 08/06/2024 5:04 PM ATMOSPHERIC CHEMIST Hepatic cirrhosis, unspecified hepatic cirrhosis type, unspecified whether ascites present (HCC) Hepatic encephalopathy (HCC) COMPREHENSIVE METABOLIC PANEL Routine 08/06/2024 5:04 PM ATMOSPHERIC CHEMIST Hepatic cirrhosis, unspecified hepatic cirrhosis type, unspecified whether ascites present (HCC) Hepatic encephalopathy (HCC) BILIRUBIN, DIRECT Routine 08/06/2024 5:04 PM ATMOSPHERIC CHEMIST Hepatic cirrhosis, unspecified hepatic cirrhosis type, unspecified whether ascites present (HCC) Hepatic encephalopathy (HCC) PROTIME-INR Routine 08/06/2024 5:04 PM ATMOSPHERIC CHEMIST Hepatic cirrhosis, unspecified hepatic cirrhosis type, unspecified whether ascites present (HCC) Hepatic encephalopathy (HCC) [id number], TUMOR MARKER Routine 08/06/2024 5:04 PM ATMOSPHERIC CHEMIST Hepatic cirrhosis, unspecified hepatic cirrhosis type, unspecified whether ascites present (HCC) Hepatic encephalopathy (HCC) HEMOGLOBIN A1C Routine 08/06/2024 5:04 PM ATMOSPHERIC CHEMIST Hepatic encephalopathy (HCC) Type 2 diabetes mellitus with stage 4 chronic kidney disease, with long-term current use of insulin (HCC) BLOOD CULTURE Routine 08/06/2024 5:04 PM ATMOSPHERIC CHEMIST Hepatic encephalopathy (HCC) SCAN - LABS 08/03/2024 EGFR Routine 07/30/2024 1:25 PM ATMOSPHERIC CHEMIST LYONS (nonalcoholic steatohepatitis) COMPREHENSIVE METABOLIC PANEL Routine 07/30/2024 1:25 PM ATMOSPHERIC CHEMIST LYONS (nonalcoholic steatohepatitis) DIFFERENTIAL AUTO Routine 07/30/2024 1:10 PM ATMOSPHERIC CHEMIST L[place]ONS (nonalcoholic steatohepatitis) CBC WITH AUTO DIFFERENTIAL Routine 07/30/2024 1:10 PM ATMOSPHERIC CHEMIST LYONS (nonalcoholic steatohepatitis) PROTIME-INR Routine 07/30/2024 1:10 PM ATMOSPHERIC CHEMIST LYONS (nonalcoholic steatohepatitis) HLA ANTIBODY SCREEN - SAB (CLASS I AND CLASS II) Routine 07/20/2024 10:00 AM ATMOSPHERIC CHEMIST ESRD (end stage renal disease) (CMS/HCC) (HCC) HLA ANTIBODY SCREEN BY PRA OR SAB PER SCHEDULE (CLASS I AND CLASS II) Routine 07/20/2024 10:00 AM ATMOSPHERIC CHEMIST ESRD (end stage renal disease) (CMS/HCC) (HCC) SCAN - LABS 07/20/2024 PAP AND HIGH RISK HPV, REFLEX TO GENOTYPING Routine 04/28/2024 10:41 AM CDT SCREENING MAMMOGRAM BILATERAL W PAL IP Routine 04/27/2024 1:55 PM CDT LIPID PANEL Routine 04/22/2024 12:58 AM CDT HEPATITIS C ANTIBODY Routine 06/16/2023 6:09 AM ATMOSPHERIC CHEMIST COLONOSCOPY 05/30/2022 9:28 AM CDT ALBUMIN CREATININE RATIO, URINE Routine 03/01/2021 2:45 PM CDT Type 2 diabetes mellitus without complication, unspecified whether shelter insulin use (HCC) from Last 3 Months or Most Recently Relevant to Health Maintenance Results * (ABNORMAL) POCT glucose (10/02/2024 4:21 PM ATMOSPHERIC CHEMIST) Glucose, POC 407(H) 70 - 199 mg/dL Comment:Glu2: RN/ Notified Glucose comment 1 Glu2: RN/MD Notified [facility] Blood 10/02/2024 4:21 PM ATMOSPHERIC CHEMIST 10/02/2024 4:21 PM ATMOSPHERIC CHEMIST us Molina Dsouza MD LAB POCT ORDERABLE S - DEVICE Final Result [facility] Department [place] [address] * [employer] Evaluate and Treat (FEES) (10/02/2024 1:07 PM ATMOSPHERIC CHEMIST) Narrative MARCIA - 10/02/2024 1:07 PM ATMOSPHERIC CHEMIST Sondra Dumont, CHARLENE 10/02/2024 3:22 PM Speech-Language Pathology: Flexible Endoscopic Evaluation of Swallowing (FEES) HPI/PMH HPI/PMH: 63 y.o. F with hx of MASH cirrhosis and CKD currently listed for a simultaneous liver-kidney transplant (SLK), HTN, T2DM, atrial flutter, and ERNESTINE who presented to [facility] 09/24 as an OSH transfer for AMS. Pt was reportedly at baseline until 09/24 when EMS was called to her home as patient was found confused by her . Pt was initially brought to OSH ED, transferred to [facility] ED as she is an active liver transplant patient. EGD October 2022 w/o EV. #AMS, likely hepatic encephalopathy, improving Respiratory/Intubation Status: RA Imaging: CT Abdomen/Pelvis 09/26- New right lower lobe 8 mm pulmonary nodule. CXR 09/24- Lungs are clear. No pleural effusion or pneumothorax. Neuro Outside CT 09/24- No acute intracranial abnormality. Precautions: fall, ERNESTINE Current Diet Order: regular diet/nectar thickened liquid Baseline Diet: regular diet/thin liquid General Information Nael Levine 10/02/24 [employer] Received On: 10/02/24 General Observations: Pt seen sitting upright in a chair. Pt alert, speech slurred but intelligible, able to follow commands and answer questions without difficulty. Pain Score: 0 - No pain If pain >4, was RN notified? N/A Patient Stated Goal/Comments: Pt expressed her distaste with the nectar thickened liquids. 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 Repeat swallow and chin tuck modifications were also unsuccessful to prevent aspiration. No penetration or aspiration with any honey thickened liquid, puree, or solid trials this date. Mild vallecular residue observed with hard solids but mostly cleared with reflexive repeat swallows. Assessment Details & Results Purpose and Procedure of Flexible Endoscopic Evaluation of Swallowing: Completed to assess oropharyngeal swallow function and evaluate the safety/efficiency of the swallow so that diet recommendations can be made. Results are indicative of performance at time of exam. A flexible endoscope was passed transnasally to the level of the hypopharynx without administration of topical anesthetic. The soft palate, pharynx, larynx, and surrounding structures were viewed. Position During Assessment: Position: Seated upright, in a chair Anatomy and Physiology Anatomy and Physiology Findings: No deficits Secretions: Minimal Consistencies Administered: Thin liquids, [place] thick liquids, Honey thick liquids, Purees, Solids Thin Liquids: Laryngeal Penetration: Present Aspiration Present: Yes Timing: Before, During Amount: Moderate Response to aspiration: None Cough: Non-productive Unsuccessful Modifications: Chin tuck, Cough, Repeat swallow Penetration Aspiration Scale-Thin: 8-Material enters the airway, passes below the vocal folds and no effort is made to eject Zari Scale-Vallecular Residue-Thin Liquids: Moderate [place] Scale-Pyriform Sinus Residue-Thin Liquids: Mild [place] Thickened Liquids: Laryngeal Penetration: Present Aspiration Present: Yes Timing: Before, During Amount: Trace Response to aspiration: None Unsuccessful Modifications: Repeat swallow, Cough, Chin tuck Penetration Aspiration Scale-[place]: 8-Material enters the airway, passes below the vocal folds and no effort is made to eject [place] Scale-Vallecular Residue-[place] Thickened Liquids: Mild Zari Scale-Pyriform Sinus Residue-[place] Thickened Liquids: None Honey Thickened Liquids: Laryngeal Penetration: None Aspiration Present: No Penetration Aspiration Scale-Honey: 1-Material does not enter airway Zari Scale-Vallecular Residue-Honey Thickened Liquids: None [place] Scale-Pyriform Sinus Residue-Honey Thickened Liquids: None Purees: Laryngeal Penetration: None Aspiration Present: No Penetration Aspiration Scale-Puree: 1-Material does not enter airway [place] Scale-Vallecular Residue-Puree: None Zari Scale-Pyriform Sinus Residue-Puree: Trace Solids: Laryngeal Penetration: None Aspiration Present: No Successful Modifications: Repeat swallow Penetration Aspiration Scale-Solids: 1-Material does not enter airway [place] Scale-Vallecular Residue-Solids: Mild [place] Scale-Pyriform Sinus Residue-Solids: None Dysphagia Outcome and Severity Scale: Dysphagia Outcomes and Severity Scale: 4 Mild/Moderate dysphagia Levels 1 & 2 on the ALEJANDRINA indicate need for nonoral nutrition. Treatment Treatment was not provided this date. Please reference care plan for treatment goals and details, if indicated. Plan [employer] Frequency of Services during current admission: 3-5x/wk [employer] Recommendation (Add'l Services): Inpatient Rehab Facility Next Visit Plan:treatment/therapy Additional Referrals: PT/OT Discharge Summary Statement If this is the last swallow therapy visit, this serves as the discharge summary. Molina Dsouza MD [employer] ORDERABLES Fi nal Result Performing Organization Address City/[facility]/ZIP Co de Phone Number [place] * (ABNORMAL) POCT glucose (10/02/2024 11:33 AM ATMOSPHERIC CHEMIST) [facility] Glucose, POC 373(H) 70 - 199 mg/dL Comment:Glu2: RN/ Notified Glucose comment 1 Glu2: RN/ Notified [facility] Blood 10/02/2024 11:3 3 AM ATMOSPHERIC CHEMIST 10/02/2024 11:33 AM ATMOSPHERIC CHEMIST Molina Dsouza MD LAB POCT ORDERABLE S - DEVICE Final Result Performing Organization Address City/[facility] Co de Phone Number [facility] [place] [address] * (ABNORMAL) POCT glucose (10/02/2024 7:14 AM ATMOSPHERIC CHEMIST) Glucose, POC 215(H) 70 - 199 mg/dL Comment:Glu2: RN/MD Notified Glucose comment 1 Glu2: RN/MD Notified [facility] Blood 10/02/2024 7:14 AM ATMOSPHERIC CHEMIST 10/02/2024 7:14 AM ATMOSPHERIC CHEMIST Molina Dsouza MD LAB POCT ORDERABLE S - DEVICE Final Result Performing Organization Address City/[facility]/ZIP Co de Phone Number [facility] Department [place] [address] * POCT glucose (10/02/2024 4:19 AM ATMOSPHERIC CHEMIST) Glucose, POC 194 70 - 199 mg/dL Blood 10/02/2024 4:19 AM ATMOSPHERIC CHEMIST 10/02/2024 4:19 AM ATMOSPHERIC CHEMIST Molina Dsouza MD LAB POCT ORDERABLE S - DEVICE Final Result Performing Organization Address [facility] de Phone Number [facility] Department [place] [address] * (ABNORMAL) eGFR (10/01/2024 9:18 PM ATMOSPHERIC CHEMIST) eGFR 26(L) >=60 mL/min/1. 73 m2 Comment: Interpretive Data [...] Inclusion of Race in Diagnosing Kidney Disease, TIEN 2020). The CKD-EPI equation should not be used for patients with unstable renal function and has not been validated in children and those over 70. Current interpretive data was last reviewed 2021. Blood 10/01/2024 9:18 PM ATMOSPHERIC CHEMIST 10/01/2024 10:11 PM ATMOSPHERIC CHEMIST Najma Pires MD LAB BLOOD ORDERABLES Final Result Performing Organization Address [facility] de Phone Number [facility] Department [place] [address] * (ABNORMAL) Protime-INR (10/01/2024 9:18 PM ATMOSPHERIC CHEMIST) PT 17.6(H) 9.7 - 13.0 sec INR 1.61(H) 0.90 - 1.20 [facility] Comment: Interpretive data Oral anticoagulant therapeutic ranges: Venous thromboembolism prophylaxis or treatment: 2.0-3.0 CARDIOLOGY Standard range: 2.0-3.0 High-intensity range: 2.5-3.5 Refer to indication-specific guidelines for appropriate target ranges for prosthetic heart valve replacement. Current interpretive data was last revised on 2019. Blood 10/01/2024 9:18 PM ATMOSPHERIC CHEMIST 10/01/2024 10:12 PM ATMOSPHERIC CHEMIST Stuart Flores MD LAB BLOOD ORDERABLES Final Resul t Performing Organization Address [facility] Co de Phone Number [facility] Department [place] [address] * Phosphorus (10/01/2024 9:18 PM ATMOSPHERIC CHEMIST) Phosphorus, pl 2.4 2.3 - 4.5 mg/dL Blood 10/01/2024 9:18 PM ATMOSPHERIC CHEMIST 10/01/2024 10:11 PM ATMOSPHERIC CHEMIST Stuart Flores MD LAB BLOOD ORDERABLES Final Resul t Performing Organization Address [facility]/ZIP Co de Phone Number [facility] Department [place] [address] * Magnesium (10/01/2024 9:18 PM ATMOSPHERIC CHEMIST) Pathologist [facility] [place] Magnesium 2.1 1.4 - 2.5 mg/dL Blood 10/01/2024 9:18 PM ATMOSPHERIC CHEMIST 10/01/2024 10:11 PM ATMOSPHERIC CHEMIST us Stuart Flores MD LAB BLOOD ORDERABLES Final Resul t Performing Organization Address [facility] de Phone Number [facility] Department [place] [address] * (ABNORMAL) Comprehensive metabolic panel (10/01/2024 9:18 PM ATMOSPHERIC CHEMIST) Pathologist [facility] [place] Sodium 140 135 - 145 mmol/L Potassium, pl 3.5 3.3 - 4.9 mmol/L [facility] Chloride 97 97 - 110 mmol/L [facility] CO2 28 22 - 32 mmol/L [facility] Anion gap 15 2 - 15 mmol/L [facility] BUN 50(H) 6 - 25 mg/dL [facility] Creatinine 2.12(H) 0.60 - 1.10 mg/dL [facility] Glucose 315(H) 70 - 199 mg/dL [facility] Comment: Interpretive Data Fasting glucose [...] interpretive data was last revised 2022. Calcium 10.2 8.5 - 10.3 mg/dL [facility] Bilirubin, total 4.0(H) 0.1 - 1.2 mg/dL [facility] Protein, pl 7.1 6.5 - 8.5 g/dL [facility] Albumin 4.6 3.5 - 5.0 g/dL [facility] Alk phos 70 40 - 130 Units/L [facility] ALT 28 7 - 45 Units/L [facility] AST 54(H) 10 - 45 Units/L [facility] Blood 10/01/2024 9:18 PM ATMOSPHERIC CHEMIST 10/01/2024 10:11 PM ATMOSPHERIC CHEMIST us Najma Pires MD LAB BLOOD ORDERABLES Final Result Performing Organization Address [facility] Co de Phone Number [facility] [place] [address] * (ABNORMAL) POCT glucose (10/01/2024 7:35 PM ATMOSPHERIC CHEMIST) Glucose, POC 295(H) 70 - 199 mg/dL Blood 10/01/2024 7:35 PM ATMOSPHERIC CHEMIST 10/01/2024 7:35 PM ATMOSPHERIC CHEMIST Molina Dsouza MD LAB POCT ORDERABLE S - DEVICE Final Result Performing Organization Address [facility] Co de Phone Number [facility] [place] [address] * (ABNORMAL) POCT glucose (10/01/2024 7:34 PM ATMOSPHERIC CHEMIST) Glucose, POC 361(H) 70 - 199 mg/dL Blood 10/01/2024 7:34 PM ATMOSPHERIC CHEMIST 10/01/2024 7:34 PM ATMOSPHERIC CHEMIST Molina Dsouza MD LAB POCT ORDERABLE S - DEVICE Final Result Performing Organization Address [facility] Co de Phone Number [facility] [place] [address] * (ABNORMAL) POCT glucose (10/01/2024 5:12 PM ATMOSPHERIC CHEMIST) Glucose, POC 281(H) 70 - 199 mg/dL Blood 10/01/2024 5:12 PM ATMOSPHERIC CHEMIST 10/01/2024 5:12 PM ATMOSPHERIC CHEMIST us Molina Dsouza MD LAB POCT ORDERABLE S - DEVICE Final Result Performing Organization Address [facility] de Phone Number [facility] [place] [address] * (ABNORMAL) POCT glucose (10/01/2024 11:45 AM ATMOSPHERIC CHEMIST) Glucose, POC 262(H) 70 - 199 mg/dL Blood 10/01/2024 11:4 5 AM ATMOSPHERIC CHEMIST 10/01/2024 11:45 AM ATMOSPHERIC CHEMIST us Molina Dsouza MD LAB POCT ORDERABLE S - DEVICE Final Result Performing Organization Address [facility] de Phone Number [facility] [place] [address] * POCT glucose (10/01/2024 7:45 AM ATMOSPHERIC CHEMIST) Glucose, POC 176 70 - 199 mg/dL Blood 10/01/2024 7:45 AM ATMOSPHERIC CHEMIST 10/01/2024 7:45 AM ATMOSPHERIC CHEMIST us Molina Dsouza MD LAB POCT ORDERABLE S - DEVICE Final Result Performing Organization Address [facility] de Phone Number [facility] [place] [address] * (ABNORMAL) eGFR (09/30/2024 9:22 PM ATMOSPHERIC CHEMIST) eGFR 23(L) >=60 mL/min/1. 73 m2 Comment: Interpretive Data [...] interpretive data was last reviewed 2021. Blood 09/30/2024 9:22 PM ATMOSPHERIC CHEMIST 09/30/2024 11:32 PM ATMOSPHERIC CHEMIST us Najma Pires MD LAB BLOOD ORDERABLES Final Result [facility] Department [place] [address] * (ABNORMAL) Differential, auto (09/30/2024 9:22 PM ATMOSPHERIC CHEMIST) Pathologist [facility] [place] Neutrophil abs 3.3 1.5 - 6.5 K/cumm Imm gran abs 0.0 0.0 - 0.1 K/cumm [facility] Lymphocyte abs 1.1 0.8 - 3.3 K/cumm [facility] Monocyte abs 0.7 0.2 - 0.8 K/cumm [facility] Eosinophil abs 0.7(H) 0.0 - 0.5 K/cumm [facility] Basophil abs 0.0 0.0 - 0.1 K/cumm [facility] Neutrophil pct 56.5 % [facility] Comment: Interpretive Data Percent cell count reference ranges are not reported, since discordance with absolute values may lead to misinterpretation of CBC data. Current Interpretive Data was last revised on 2017. Imm gran pct 0.5 % [facility] Comment: Interpretive Data Percent cell count reference ranges are not reported, since discordance with absolute values may lead to misinterpretation of CBC data. Current Interpretive Data was last revised on 2017. Lymphocyte pct 18.8 % [facility] Comment: Interpretive Data Percent cell count reference ranges are not reported, since discordance with absolute values may lead to misinterpretation of CBC data. Current Interpretive Data was last revised on 2017. Monocyte pct 11.7 % [facility] Comment: Interpretive Data Percent cell count reference ranges are not reported, since discordance with absolute values may lead to misinterpretation of CBC data. Current Interpretive Data was last revised on 2017. Eosinophil pct 12.0 % [facility] Comment: Interpretive Data Percent cell count reference ranges are not reported, since discordance with absolute values may lead to misinterpretation of CBC data. Current Interpretive Data was last revised on 2017. Basophil pct 0.5 % [facility] Comment: Interpretive Data Percent cell count reference ranges are not reported, since discordance with absolute values may lead to misinterpretation of CBC data. Current Interpretive Data was last revised on 2017. Blood 09/30/2024 9:22 PM ATMOSPHERIC CHEMIST 09/30/2024 11:33 PM ATMOSPHERIC CHEMIST us Molina Dsouza MD LAB BLOOD ORDERABL ES Final Result [facility] Department [place] [address] * (ABNORMAL) CBC with auto differential (09/30/2024 9:22 PM ATMOSPHERIC CHEMIST) WBC 5.9 3.8 - 9.9 K/cumm Hgb 11.7(L) 11.9 - 15.5 g/dL [facility] Hct 35.1(L) 35.6 - 45.5 % [facility] Plt 50(L) 150 - 400 K/cumm [facility] MPV 12.5(H) 9.1 - 12.3 fL [facility] RBC 3.67(L) 3.90 - 5.20 M/cumm [facility] MCV 95.6 81.3 - 96.4 fL [facility] MCH 31.9 27.1 - 33.3 pg [facility] MCHC 33.3 32.3 - 35.7 g/dL [facility] RDW CV 14.7 11.1 - 14.9 % [facility] RDW SD 50.5(H) 35.7 - 48.1 fL [facility] NRBC abs 0.00 0.00 - 0.01 K/cumm [facility] Blood 09/30/2024 9:22 PM ATMOSPHERIC CHEMIST 09/30/2024 11:33 PM ATMOSPHERIC CHEMIST Molina Dsouza MD LAB BLOOD ORDERABL ES Final Result Performing Organization Address City/[facility]/ZIP Co de Phone Number [facility] [place] [address] * Vitamin D 25 hydroxy (09/30/2024 9:22 PM ATMOSPHERIC CHEMIST) Vitamin D 25-OH 33 30 - 80 ng/mL Blood 09/30/2024 9:22 PM ATMOSPHERIC CHEMIST 09/30/2024 11:34 PM ATMOSPHERIC CHEMIST Molina Dsouza MD LAB BLOOD ORDERABL ES Final Result Performing Organization Address City/[facility]/ZIP Co de Phone Number [facility] Department [place] [address] * (ABNORMAL) Protime-INR (09/30/2024 9:22 PM ATMOSPHERIC CHEMIST) PT 16.9(H) 9.7 - 13.0 sec INR 1.55(H) 0.90 - 1.20 [facility] Comment: Interpretive data Oral anticoagulant therapeutic ranges: Venous thromboembolism prophylaxis or treatment: 2.0-3.0 CARDIOLOGY Standard range: 2.0-3.0 High-intensity range: 2.5-3.5 Refer to indication-specific guidelines for appropriate target ranges for prosthetic heart valve replacement. Current interpretive data was last revised on 2019. Blood 09/30/2024 9:22 PM ATMOSPHERIC CHEMIST 09/30/2024 11:33 PM ATMOSPHERIC CHEMIST us Stuart Flores MD LAB BLOOD ORDERABLES Final Resul t Performing Organization Address [facility] de Phone Number [facility] [address] * (ABNORMAL) Phosphorus (09/30/2024 9:22 PM ATMOSPHERIC CHEMIST) Phosphorus, pl 2.2(L) 2.3 - 4.5 mg/dL Blood 09/30/2024 9:22 PM ATMOSPHERIC CHEMIST 09/30/2024 11:32 PM ATMOSPHERIC CHEMIST us Stuart Flores MD LAB BLOOD ORDERABLES Final Resul t Performing Organization Address [facility] de Phone Number [facility] [address] * PTH (09/30/2024 9:22 PM ATMOSPHERIC CHEMIST) PTH 27 15 - 65 pg/mL Blood 09/30/2024 9:22 PM ATMOSPHERIC CHEMIST 09/30/2024 11:34 PM ATMOSPHERIC CHEMIST us Molina Dsouza MD LAB BLOOD ORDERABL ES Final Result Performing Organization Address [facility] de Phone Number [facility] [place] [address] * Magnesium (09/30/2024 9:22 PM ATMOSPHERIC CHEMIST) Magnesium 2.5 1.4 - 2.5 mg/dL Blood 09/30/2024 9:22 PM ATMOSPHERIC CHEMIST 09/30/2024 11:32 PM ATMOSPHERIC CHEMIST us Stuart Flores MD LAB BLOOD ORDERABLES Final Resul t [facility] Department [place] [address] * (ABNORMAL) Comprehensive metabolic panel (09/30/2024 9:22 PM ATMOSPHERIC CHEMIST) Sodium 147(H) 135 - 145 mmol/L Potassium, pl 3.8 3.3 - 4.9 mmol/L [facility] Chloride 102 97 - 110 mmol/L [facility] CO2 31 22 - 32 mmol/L [facility] Anion gap 14 2 - 15 mmol/L [facility] BUN 46(H) 6 - 25 mg/dL [facility] Creatinine 2.31(H) 0.60 - 1.10 mg/dL [facility] Glucose 262(H) 70 - 199 mg/dL [facility] Comment: Interpretive Data Fasting glucose [...] interpretive data was last revised 2022. Calcium 10.8(H) 8.5 - 10.3 mg/dL [facility] Bilirubin, total 3.7(H) 0.1 - 1.2 mg/dL [facility] Protein, pl 7.6 6.5 - 8.5 g/dL [facility] Albumin 5.2(H) 3.5 - 5.0 g/dL [facility] Alk phos 74 40 - 130 Units/L [facility] ALT 24 7 - 45 Units/L [facility] AST 45 10 - 45 Units/L [facility] Blood 09/30/2024 9:22 PM ATMOSPHERIC CHEMIST 09/30/2024 11:32 PM ATMOSPHERIC CHEMIST Najma Pires MD LAB BLOOD ORDERABLES Final Result Performing Organization Address [facility] [place] [address] * (ABNORMAL) POCT glucose (09/30/2024 7:58 PM ATMOSPHERIC CHEMIST) Glucose, POC 277(H) 70 - 199 mg/dL Comment:Glu2: RN/MD Notified Glucose comment 1 Glu2: RN/MD Notified [facility] Blood 09/30/2024 7:58 PM ATMOSPHERIC CHEMIST 09/30/2024 7:58 PM ATMOSPHERIC CHEMIST Molina Dsouza MD LAB POCT ORDERABLE S - DEVICE Final Result Performing Organization Address [facility] de Phone Number [facility] [place] [address] * POCT glucose (09/30/2024 4:20 PM ATMOSPHERIC CHEMIST) Glucose, POC 183 70 - 199 mg/dL Blood 09/30/2024 4:20 PM ATMOSPHERIC CHEMIST 09/30/2024 4:20 PM ATMOSPHERIC CHEMIST Molina Dsouza MD LAB POCT ORDERABLE S - DEVICE Final Result Performing Organization Address [facility] de Phone Number [facility] [place] [address] * POCT glucose (09/30/2024 11:43 AM ATMOSPHERIC CHEMIST) Glucose, POC 193 70 - 199 mg/dL Blood 09/30/2024 11:4 3 AM ATMOSPHERIC CHEMIST 09/30/2024 11:43 AM ATMOSPHERIC CHEMIST Molina Dsouza MD LAB POCT ORDERABLE S - DEVICE Final Result Performing Organization Address [facility]/[place] [address] * POCT glucose (09/30/2024 7:54 AM ATMOSPHERIC CHEMIST) Glucose, POC 171 70 - 199 mg/dL Blood 09/30/2024 7:54 AM ATMOSPHERIC CHEMIST 09/30/2024 7:54 AM ATMOSPHERIC CHEMIST us Molina Dsouza MD LAB POCT ORDERABLE S - DEVICE Final Result Performing Organization Address [facility] [place] [address] * POCT glucose (09/30/2024 7:36 AM ATMOSPHERIC CHEMIST) Glucose, POC 170 70 - 199 mg/dL Blood 09/30/2024 7:36 AM ATMOSPHERIC CHEMIST 09/30/2024 7:36 AM ATMOSPHERIC CHEMIST us Molina Dsouza MD LAB POCT ORDERABLE S - DEVICE Final Result Performing Organization Address [facility] Co de Phone Number [facility] [place] [address] * POCT glucose (09/30/2024 12:28 AM ATMOSPHERIC CHEMIST) Glucose, POC 181 70 - 199 mg/dL Blood 09/30/2024 12:2 8 AM ATMOSPHERIC CHEMIST 09/30/2024 12:28 AM ATMOSPHERIC CHEMIST us Molina Dsouza MD LAB POCT ORDERABLE S - DEVICE Final Result Performing Organization Address [facility] [place] [address] * (ABNORMAL) eGFR (09/29/2024 8:49 PM ATMOSPHERIC CHEMIST) eGFR 22(L) >=60 mL/min/1. 73 m2 Comment: Interpretive Data [...] interpretive data was last reviewed 2021. Blood 09/29/2024 8:49 PM ATMOSPHERIC CHEMIST 09/29/2024 10:02 PM ATMOSPHERIC CHEMIST us Najma Pires MD LAB BLOOD ORDERABLES Final Result [facility] [place] [address] * (ABNORMAL) Protime-INR (09/29/2024 8:49 PM ATMOSPHERIC CHEMIST) PT 16.0(H) 9.7 - 13.0 sec INR 1.47(H) 0.90 - 1.20 [facility] Comment: Interpretive data Oral anticoagulant therapeutic ranges: Venous thromboembolism prophylaxis or treatment: 2.0-3.0 CARDIOLOGY Standard range: 2.0-3.0 High-intensity range: 2.5-3.5 Refer to indication-specific guidelines for appropriate target ranges for prosthetic heart valve replacement. Current interpretive data was last revised on 2019. Blood 09/29/2024 8:49 PM ATMOSPHERIC CHEMIST 09/29/2024 10:00 PM ATMOSPHERIC CHEMIST us Stuart Flores MD LAB BLOOD ORDERABLES Final Resul t Performing Organization Address [facility] Co de Phone Number [facility] [place] [address] * (ABNORMAL) Phosphorus (09/29/2024 8:49 PM ATMOSPHERIC CHEMIST) Phosphorus, pl 1.6(L) 2.3 - 4.5 mg/dL Blood 09/29/2024 8:49 PM ATMOSPHERIC CHEMIST 09/29/2024 10:02 PM ATMOSPHERIC CHEMIST us Stuart Flores MD LAB BLOOD ORDERABLES Final Resul t Performing Organization Address [facility] de Phone Number [facility] [place] [address] * (ABNORMAL) Magnesium (09/29/2024 8:49 PM ATMOSPHERIC CHEMIST) [facility] Magnesium 2.8(H) 1.4 - 2.5 mg/dL Blood 09/29/2024 8:49 PM ATMOSPHERIC CHEMIST 09/29/2024 10:02 PM ATMOSPHERIC CHEMIST us Stuart Flores MD LAB BLOOD ORDERABLES Final Resul t Performing Organization Address [facility] Co de Phone Number [facility] Department [place] [address] * (ABNORMAL) Comprehensive metabolic panel (09/29/2024 8:49 PM ATMOSPHERIC CHEMIST) Sodium 141 135 - 145 mmol/L Potassium, pl 3.5 3.3 - 4.9 mmol/L [facility] Chloride 100 97 - 110 mmol/L [facility] CO2 29 22 - 32 mmol/L [facility] Anion gap 12 2 - 15 mmol/L [facility] BUN 56(H) 6 - 25 mg/dL [facility] Creatinine 2.41(H) 0.60 - 1.10 mg/dL [facility] Glucose 241(H) 70 - 199 mg/dL [facility] Comment: Interpretive Data Fasting glucose [...] interpretive data was last revised 2022. Calcium 10.9(H) 8.5 - 10.3 mg/dL [facility] Bilirubin, total 3.4(H) 0.1 - 1.2 mg/dL [facility] Protein, pl 7.5 6.5 - 8.5 g/dL [facility] Albumin 5.0 3.5 - 5.0 g/dL [facility] Alk phos 79 40 - 130 Units/L [facility] ALT 19 7 - 45 Units/L [facility] AST 38 10 - 45 Units/L [facility] Blood 09/29/2024 8:49 PM ATMOSPHERIC CHEMIST 09/29/2024 10:02 PM ATMOSPHERIC CHEMIST us Najma Pires MD LAB BLOOD ORDERABLES Final Result Performing Organization Address City/[facility]/ZIP Co de Phone Number [facility] [place] [address] * (ABNORMAL) POCT glucose (09/29/2024 8:08 PM ATMOSPHERIC CHEMIST) [facility] Signature Glucose, POC 225(H) 70 - 199 mg/dL Blood 09/29/2024 8:08 PM ATMOSPHERIC CHEMIST 09/29/2024 8:08 PM ATMOSPHERIC CHEMIST Molina Dsouza MD LAB POCT ORDERABLE S - DEVICE Final Result Performing Organization Address City/[facility]/ZIP Co de Phone Number [facility] [place] [address] * (ABNORMAL) POCT glucose (09/29/2024 4:50 PM ATMOSPHERIC CHEMIST) Glucose, POC 236(H) 70 - 199 mg/dL Blood 09/29/2024 4:50 PM ATMOSPHERIC CHEMIST 09/29/2024 4:50 PM ATMOSPHERIC CHEMIST Molina Dsouza MD LAB POCT ORDERABLE S - DEVICE Final Result Performing Organization Address [facility] [place] [address] * (ABNORMAL) POCT glucose (09/29/2024 11:35 AM ATMOSPHERIC CHEMIST) Glucose, POC 230(H) 70 - 199 mg/dL Blood 09/29/2024 11:3 5 AM ATMOSPHERIC CHEMIST 09/29/2024 11:35 AM ATMOSPHERIC CHEMIST Molina Dsouza MD LAB POCT ORDERABLE S - DEVICE Final Result Performing Organization Address [facility] de Phone Number [facility] [address] * [employer] Evaluate and Treat (FEES) (09/29/2024 10:55 AM ATMOSPHERIC CHEMIST) Narrative [facility] - 09/29/2024 10:55 AM ATMOSPHERIC CHEMIST Marina Ty, [employer] 09/29/2024 3:25 PM Speech-Language Pathology: Flexible Endoscopic Evaluation of Swallowing (FEES) [facility] 63 y.o. F with hx of LYONS cirrhosis and CKD currently listed for a simultaneous liver-kidney transplant (SLK), HTN, T2DM, atrial flutter, and ERNESTINE who presented to [facility] 09/24 as an OSH transfer for AMS. Pt was reportedly at baseline until 09/24 when EMS was called to her home as patient was found confused by her . Pt was initially brought to OSH ED, transferred to [facility] ED as she is an active liver transplant patient. EGD October 2022 w/o EV. #AMS, likely hepatic encephalopathy, improving Respiratory/Intubation Status: RA Imaging: CT Abdomen/Pelvis 09/26- New right lower lobe 8 mm pulmonary nodule. CXR 09/24- Lungs are clear. No pleural effusion or pneumothorax. Neuro Outside CT 09/24- No acute intracranial abnormality. Precautions: fall, ERNESTINE PLOF: CSE at [facility] on 08/02/2022 recommending regular solids with thin liquids, meds with puree, full supervision with meals, limit distractions Current Diet Order:npo, ice chips for pleasure pending fees Baseline Diet: reports regular diet General Information Nael Levine 09/29/24 [employer] Received On: 09/29/24 General Observations: Seen sitting upright in bed, pleasant and cooperative, functional voicing with slurred speech. Pain Score: 0 - No pain If pain >4, was RN notified? None Observed Patient Stated Goal/Comments: to start eating again Clinical Impression & Professional Recommendations Diet Solids Recommendation: Regular Diet Liquids Recommendations: [place] thick Recommended Form of Medications: As tolerated Compensatory Strategies/Modifications: Alternate solids and liquids, Small bites, Single sips, Slow rate Postural Recommendations: Upright 90 degrees Assistance with feeding/swallowing: Intermittent supervision, Assistance with thickening liquid, Assist with aggressive oral hygiene prior to po Specialty Instructions: none Overall Clinical Impression/Additional Information: Given trials of thin and nectar thick liquid as well as puree and hard solid food. Noted delayed swallow initiation of thin liquids to level of pyriforms. Aspiration noted in 3/5 trials thin liquid, penetration to level of cords on remainder of trials. Cued cough ineffective to remove from airway. Pt with single throat clear following initial aspiration event, really no other overt aspiration signs observed. No penetration or aspiration of nectar thick liquid, puree or solid food. More timely initiation and better bolus control may have helped eliminate asp/pen. Noted trace residue following thin and nectar thick liquid as well as puree food. Gross residue following large bite of hard solid which appeared to be more stuck on large bore ng than actually building up in pharynx. Repeat swallow ineffective to clear however liquid wash cleared food residue completely. Attempted bolus hold with thin liquid however did not improve timeliness of initiation. Assessment Details & Results Purpose and Procedure of Flexible Endoscopic Evaluation of Swallowing: Completed to assess oropharyngeal swallow function and evaluate the safety/efficiency of the swallow so that diet recommendations can be made. Results are indicative of performance at time of exam. A flexible endoscope was passed transnasally to the level of the hypopharynx without administration of topical anesthetic. The soft palate, pharynx, larynx, and surrounding structures were viewed. Position During Assessment: Position: Seated upright, in a bed Anatomy and Physiology Anatomy and Physiology Findings: No deficits Secretions: Minimal Consistencies Administered: Thin liquids, [place] thick liquids, Purees, Solids (with green food coloring) Thin Liquids: Laryngeal Penetration: Present Aspiration Present: Yes Timing: Before Amount: Trace Response to aspiration: Throat clearing, None Cough: Non-productive Unsuccessful Modifications: Other (comment) (bolus hold) Penetration Aspiration Scale-Thin: 8-Material enters the airway, passes below the vocal folds and no effort is made to eject [place] Scale-Vallecular Residue-Thin Liquids: Trace Zari Scale-Pyriform Sinus Residue-Thin Liquids: Trace [place] Thickened Liquids: Laryngeal Penetration: None Aspiration Present: No Penetration Aspiration Scale-[place]: 1-Material does not enter airway Zari Scale-Vallecular Residue-[place] Thickened Liquids: Trace [place] Scale-Pyriform Sinus Residue-[place] Thickened Liquids: Trace Honey Thickened Liquids: Purees: Laryngeal Penetration: None Aspiration Present: No Penetration Aspiration Scale-Puree: 1-Material does not enter airway [place] Scale-Vallecular Residue-Puree: Trace Zari Scale-Pyriform Sinus Residue-Puree: Trace Solids: Laryngeal Penetration: None Aspiration Present: No Penetration Aspiration Scale-Solids: 1-Material does not enter airway [place] Scale-Vallecular Residue-Solids: Moderate [place] Scale-Pyriform Sinus Residue-Solids: Moderate Dysphagia Outcome and Severity Scale: Dysphagia Outcomes and Severity Scale: 5 Mild dysphagia Levels 1 & 2 on the ALEJANDRINA indicate need for nonoral nutrition. Treatment Treatment was not provided this date. Please reference care plan for treatment goals and details, if indicated. Plan [employer] Frequency of Services during current admission: 1-2x/wk [employer] Recommendation (Add'l Services): Defer at this time Next Visit Plan:treatment/therapy and repeat instrumental evaluation 3-5 days Additional Referrals: none at this time Discharge Summary Statement If this is the last swallow therapy visit, this serves as the discharge summary. us Molina Dsouza MD [employer] ORDERABLES Fi nal Result [facility] * [employer] Evaluate and Treat (VFSS) (09/29/2024 10:55 AM ATMOSPHERIC CHEMIST) Narrative Marina Ty, [employer] - 09/29/2024 10:55 AM ATMOSPHERIC CHEMIST Marina Ty, [employer] 09/29/2024 3:25 PM Speech-Language Pathology: Flexible Endoscopic Evaluation of Swallowing (FEES) HPI/PMH 63 y.o. F with hx of LYONS cirrhosis and CKD currently listed for a simultaneous liver-kidney transplant (SLK), HTN, T2DM, atrial flutter, and ERNESTINE who presented to [facility] 09/24 as an OSH transfer for AMS. Pt was reportedly at baseline until 04009/24 when EMS was called to her home as patient was found confused by her . Pt was initially brought to OSH ED, transferred to [facility] ED as she is an active liver transplant patient. EGD October 2022 w/o EV. #AMS, likely hepatic encephalopathy, improving Respiratory/Intubation Status: RA Imaging: CT Abdomen/Pelvis 09/26- New right lower lobe 8 mm pulmonary nodule. CXR 09/24- Lungs are clear. No pleural effusion or pneumothorax. Neuro Outside CT 09/24- No acute intracranial abnormality. Precautions: fall, ERNESTINE PLOF: CSE at [facility] on 08/02/2022 recommending regular solids with thin liquids, meds with puree, full supervision with meals, limit distractions Current Diet Order:npo, ice chips for pleasure pending fees Baseline Diet: reports regular diet General Information Nael Levine 09/29/24 [employer] Received On: 09/29/24 General Observations: Seen sitting upright in bed, pleasant and cooperative, functional voicing with slurred speech. Pain Score: 0 - No pain If pain >4, was RN notified? None Observed Patient Stated Goal/Comments: to start eating again Clinical Impression & Professional Recommendations Diet Solids Recommendation: Regular Diet Liquids Recommendations: [place] thick Recommended Form of Medications: As tolerated Compensatory Strategies/Modifications: Alternate solids and liquids, Small bites, Single sips, Slow rate Postural Recommendations: Upright 90 degrees Assistance with feeding/swallowing: Intermittent supervision, Assistance with thickening liquid, Assist with aggressive oral hygiene prior to po Specialty Instructions: none Overall Clinical Impression/Additional Information: Given trials of thin and nectar thick liquid as well as puree and hard solid food. Noted delayed swallow initiation of thin liquids to level of pyriforms. Aspiration noted in 3/5 trials thin liquid, penetration to level of cords on remainder of trials. Cued cough ineffective to remove from airway. Pt with single throat clear following initial aspiration event, really no other overt aspiration signs observed. No penetration or aspiration of nectar thick liquid, puree or solid food. More timely initiation and better bolus control may have helped eliminate asp/pen. Noted trace residue following thin and nectar thick liquid as well as puree food. Gross residue following large bite of hard solid which appeared to be more stuck on large bore ng than actually building up in pharynx. Repeat swallow ineffective to clear however liquid wash cleared food residue completely. Attempted bolus hold with thin liquid however did not improve timeliness of initiation. Assessment Details & Results Purpose and Procedure of Flexible Endoscopic Evaluation of Swallowing: Completed to assess oropharyngeal swallow function and evaluate the safety/efficiency of the swallow so that diet recommendations can be made. Results are indicative of performance at time of exam. A flexible endoscope was passed transnasally to the level of the hypopharynx without administration of topical anesthetic. The soft palate, pharynx, larynx, and surrounding structures were viewed. Position During Assessment: Position: Seated upright, in a bed Anatomy and Physiology Anatomy and Physiology Findings: No deficits Secretions: Minimal Consistencies Administered: Thin liquids, [place] thick liquids, Purees, Solids (with green food coloring) Thin Liquids: Laryngeal Penetration: Present Aspiration Present: Yes Timing: Before Amount: Trace Response to aspiration: Throat clearing, None Cough: Non-productive Unsuccessful Modifications: Other (comment) (bolus hold) Penetration Aspiration Scale-Thin: 8-Material enters the airway, passes below the vocal folds and no effort is made to eject Zari Scale-Vallecular Residue-Thin Liquids: Trace Zari Scale-Pyriform Sinus Residue-Thin Liquids: Trace [place] Thickened Liquids: Laryngeal Penetration: None Aspiration Present: No Penetration Aspiration Scale-[place]: 1-Material does not enter airway [place] Scale-Vallecular Residue-[place] Thickened Liquids: Trace [place] Scale-Pyriform Sinus Residue-[place] Thickened Liquids: Trace Honey Thickened Liquids: Purees: Laryngeal Penetration: None Aspiration Present: No Penetration Aspiration Scale-Puree: 1-Material does not enter airway Zari Scale-Vallecular Residue-Puree: Trace [place] Scale-Pyriform Sinus Residue-Puree: Trace Solids: Laryngeal Penetration: None Aspiration Present: No Penetration Aspiration Scale-Solids: 1-Material does not enter airway [place] Scale-Vallecular Residue-Solids: Moderate [place] Scale-Pyriform Sinus Residue-Solids: Moderate Dysphagia Outcome and Severity Scale: Dysphagia Outcomes and Severity Scale: 5 Mild dysphagia Levels 1 & 2 on the ALEJANDRINA indicate need for nonoral nutrition. Treatment Treatment was not provided this date. Please reference care plan for treatment goals and details, if indicated. Plan [employer] Frequency of Services during current admission: 1-2x/wk [employer] Recommendation (Add'l Services): Defer at this time Next Visit Plan:treatment/therapy and repeat instrumental evaluation 3-5 days Additional Referrals: none at this time Discharge Summary Statement If this is the last swallow therapy visit, this serves as the discharge summary. us Molina Dsouza MD [employer] ORDERABLES Fi nal Result * POCT glucose (09/29/2024 7:34 AM ATMOSPHERIC CHEMIST) Glucose, POC 185 70 - 199 mg/dL Blood 09/29/2024 7:34 AM ATMOSPHERIC CHEMIST 09/29/2024 7:34 AM ATMOSPHERIC CHEMIST us Molina Dsouza MD LAB POCT ORDERABLE S - DEVICE Final Result Performing Organization Address [facility] Co de Phone Number [facility] [place] [employer] [place] [address] * (ABNORMAL) POCT glucose (09/29/2024 4:49 AM ATMOSPHERIC CHEMIST) Glucose, POC 203(H) 70 - 199 mg/dL Comment:Glu2: RN/MD Notified Glucose comment 1 Glu2: RN/MD Notified [facility] Blood 09/29/2024 4:49 AM ATMOSPHERIC CHEMIST 09/29/2024 4:49 AM ATMOSPHERIC CHEMIST us Molina Dsouza MD LAB POCT ORDERABLE S - DEVICE Final Result Performing Organization Address City/[facility]/ZIP Co de Phone Number [facility] [address] * POCT glucose (09/29/2024 12:25 AM ATMOSPHERIC CHEMIST) Glucose, POC 179 70 - 199 mg/dL Blood 09/29/2024 12:2 5 AM ATMOSPHERIC CHEMIST 09/29/2024 12:25 AM ATMOSPHERIC CHEMIST Molina Dsouza MD LAB POCT ORDERABLE S - DEVICE Final Result Performing Organization Address [facility] Co de Phone Number [facility] Department [place] [address] * (ABNORMAL) eGFR (09/28/2024 9:17 PM ATMOSPHERIC CHEMIST) Pathologist [facility] [place] eGFR 21(L) >=60 mL/min/1. 73 m2 Comment: Interpretive Data [...] interpretive data was last reviewed 2021. Blood 09/28/2024 9:17 PM ATMOSPHERIC CHEMIST 09/28/2024 10:40 PM ATMOSPHERIC CHEMIST us Najma Pires MD LAB BLOOD ORDERABLES Final Result Performing Organization Address City/[facility]/ZIP Co de Phone Number [facility] Department [place] [address] * (ABNORMAL) Differential, auto (09/28/2024 9:17 PM ATMOSPHERIC CHEMIST) Neutrophil abs 3.4 1.5 - 6.5 K/cumm Imm gran abs 0.0 0.0 - 0.1 K/cumm [facility] Lymphocyte abs 1.2 0.8 - 3.3 K/cumm [facility] Monocyte abs 0.9(H) 0.2 - 0.8 K/cumm [facility] Eosinophil abs 0.9(H) 0.0 - 0.5 K/cumm [facility] Basophil abs 0.0 0.0 - 0.1 K/cumm [facility] Neutrophil pct 52.8 % [facility] Comment: Interpretive Data Percent cell count reference ranges are not reported, since discordance with absolute values may lead to misinterpretation of CBC data. Current Interpretive Data was last revised on 2017. Imm gran pct 0.5 % [facility] Comment: Interpretive Data Percent cell count reference ranges are not reported, since discordance with absolute values may lead to misinterpretation of CBC data. Current Interpretive Data was last revised on 2017. Lymphocyte pct 18.2 % [facility] Comment: Interpretive Data Percent cell count reference ranges are not reported, since discordance with absolute values may lead to misinterpretation of CBC data. Current Interpretive Data was last revised on 2017. Monocyte pct 14.5 % [facility] Comment: Interpretive Data Percent cell count reference ranges are not reported, since discordance with absolute values may lead to misinterpretation of CBC data. Current Interpretive Data was last revised on 2017. Eosinophil pct 13.4 % [facility] Comment: Interpretive Data Percent cell count reference ranges are not reported, since discordance with absolute values may lead to misinterpretation of CBC data. Current Interpretive Data was last revised on 2017. Basophil pct 0.6 % [facility] Comment: Interpretive Data Percent cell count reference ranges are not reported, since discordance with absolute values may lead to misinterpretation of CBC data. Current Interpretive Data was last revised on 2017. Blood 09/28/2024 9:17 PM ATMOSPHERIC CHEMIST 09/28/2024 10:40 PM ATMOSPHERIC CHEMIST Najma Pires MD LAB BLOOD ORDERABLES Final Result Performing Organization Address [facility] Co de Phone Number [facility] [place] [address] * (ABNORMAL) CBC with auto differential (09/28/2024 9:17 PM ATMOSPHERIC CHEMIST) Pathologist [facility] [place] WBC 6.4 3.8 - 9.9 K/cumm Hgb 11.6(L) 11.9 - 15.5 g/dL [facility] Hct 35.4(L) 35.6 - 45.5 % [facility] Plt 62(L) 150 - 400 K/cumm [facility] MPV 11.5 9.1 - 12.3 fL [facility] RBC 3.65(L) 3.90 - 5.20 M/cumm [facility] MCV 97.0(H) 81.3 - 96.4 fL [facility] MCH 31.8 27.1 - 33.3 pg [facility] MCHC 32.8 32.3 - 35.7 g/dL [facility] RDW CV 14.5 11.1 - 14.9 % [facility] RDW SD 51.1(H) 35.7 - 48.1 fL [facility] NRBC abs 0.00 0.00 - 0.01 K/cumm [facility] Blood 09/28/2024 9:17 PM ATMOSPHERIC CHEMIST 09/28/2024 10:40 PM ATMOSPHERIC CHEMIST Najma Pires MD LAB BLOOD ORDERABLES Final Result Performing Organization Address City/[facility]/ZIP Co de Phone Number [facility] [place] [address] * (ABNORMAL) Protime-INR (09/28/2024 9:17 PM ATMOSPHERIC CHEMIST) PT 15.4(H) 9.7 - 13.0 sec INR 1.42(H) 0.90 - 1.20 [facility] Comment: Interpretive data Oral anticoagulant therapeutic ranges: Venous thromboembolism prophylaxis or treatment: 2.0-3.0 CARDIOLOGY Standard range: 2.0-3.0 High-intensity range: 2.5-3.5 Refer to indication-specific guidelines for appropriate target ranges for prosthetic heart valve replacement. Current interpretive data was last revised on 2019. Blood 09/28/2024 9:17 PM ATMOSPHERIC CHEMIST 09/28/2024 10:49 PM ATMOSPHERIC CHEMIST us Stuart Flores MD LAB BLOOD ORDERABLES Final Resul t Performing Organization Address City/[facility] Co de Phone Number [facility] [place] [address] * Phosphorus (09/28/2024 9:17 PM ATMOSPHERIC CHEMIST) Phosphorus, pl 2.3 2.3 - 4.5 mg/dL Blood 09/28/2024 9:17 PM ATMOSPHERIC CHEMIST 09/28/2024 10:40 PM ATMOSPHERIC CHEMIST us Stuart Flores MD LAB BLOOD ORDERABLES Final Resul t Performing Organization Address [facility] de Phone Number [facility] [place] [address] * (ABNORMAL) Magnesium (09/28/2024 9:17 PM ATMOSPHERIC CHEMIST) Pathologist [facility] [place] Magnesium 2.8(H) 1.4 - 2.5 mg/dL Blood 09/28/2024 9:17 PM ATMOSPHERIC CHEMIST 09/28/2024 10:40 PM ATMOSPHERIC CHEMIST us Stuart Flores MD LAB BLOOD ORDERABLES Final Resul t Performing Organization Address [facility] Co de Phone Number [facility] [place] [address] * (ABNORMAL) Hemoglobin A1c (09/28/2024 9:17 PM ATMOSPHERIC CHEMIST) Hgb A1C 8.5(H) 4.0 - 5.6 % Estimated Average Glucose 197 mg/dL [facility] Blood 09/28/2024 9:17 PM ATMOSPHERIC CHEMIST 09/28/2024 10:44 PM ATMOSPHERIC CHEMIST us Swapnil Moore MD LAB BLOOD ORDERABLES Fin al Result [facility] Department [place] [address] * (ABNORMAL) Comprehensive metabolic panel (09/28/2024 9:17 PM ATMOSPHERIC CHEMIST) Pathologist [facility] [place] Sodium 144 135 - 145 mmol/L Potassium, pl 3.4 3.3 - 4.9 mmol/L [facility] Chloride 101 97 - 110 mmol/L [facility] CO2 29 22 - 32 mmol/L [facility] Anion gap 14 2 - 15 mmol/L [facility] BUN 58(H) 6 - 25 mg/dL [facility] Creatinine 2.53(H) 0.60 - 1.10 mg/dL [facility] Glucose 207(H) 70 - 199 mg/dL [facility] Comment: Interpretive Data Fasting glucose [...] interpretive data was last revised 2022. Calcium 10.6(H) 8.5 - 10.3 mg/dL [facility] Bilirubin, total 2.9(H) 0.1 - 1.2 mg/dL [facility] Protein, pl 7.5 6.5 - 8.5 g/dL [facility] Albumin 4.8 3.5 - 5.0 g/dL [facility] Alk phos 81 40 - 130 Units/L [facility] ALT 20 7 - 45 Units/L [facility] AST 32 10 - 45 Units/L [facility] Blood 09/28/2024 9:17 PM ATMOSPHERIC CHEMIST 09/28/2024 10:40 PM ATMOSPHERIC CHEMIST us Najma Pires MD LAB BLOOD ORDERABLES Final Result Performing Organization Address City/[facility] Co de Phone Number [facility] [place] [address] * (ABNORMAL) POCT glucose (09/28/2024 7:57 PM ATMOSPHERIC CHEMIST) Glucose, POC 203(H) 70 - 199 mg/dL Comment:Glu2: RN/MD Notified Glucose comment 1 Glu2: RN/MD Notified [facility] Blood 09/28/2024 7:57 PM ATMOSPHERIC CHEMIST 09/28/2024 7:57 PM ATMOSPHERIC CHEMIST us Molina Dsouza MD LAB POCT ORDERABLE S - DEVICE Final Result Performing Organization Address [facility] [place] [address] * (ABNORMAL) POCT glucose (09/28/2024 4:31 PM ATMOSPHERIC CHEMIST) Glucose, POC 218(H) 70 - 199 mg/dL Blood 09/28/2024 4:31 PM ATMOSPHERIC CHEMIST 09/28/2024 4:31 PM ATMOSPHERIC CHEMIST us Stuart Flores MD LAB POCT ORDERABLES - DEVICE Fin al Result Performing Organization Address [facility] [place] [address] * (ABNORMAL) POCT glucose (09/28/2024 11:23 AM ATMOSPHERIC CHEMIST) Glucose, POC 244(H) 70 - 199 mg/dL Blood 09/28/2024 11:2 3 AM ATMOSPHERIC CHEMIST 09/28/2024 11:23 AM ATMOSPHERIC CHEMIST Result Anitha Flores MD LAB POCT ORDERABLES - DEVICE Fin al Result Performing Organization Address [facility] de Phone Number [facility] [place] [address] * (ABNORMAL) POCT glucose (09/28/2024 8:01 AM ATMOSPHERIC CHEMIST) Glucose, POC 271(H) 70 - 199 mg/dL Blood 09/28/2024 8:01 AM ATMOSPHERIC CHEMIST 09/28/2024 8:01 AM ATMOSPHERIC CHEMIST Result Anitha Flores MD LAB POCT ORDERABLES - DEVICE Fin al Result Performing Organization Address [facility] de Phone Number [facility] Department [place] [address] * (ABNORMAL) POCT glucose (09/28/2024 4:52 AM ATMOSPHERIC CHEMIST) Glucose, POC 227(H) 70 - 199 mg/dL Blood 09/28/2024 4:52 AM ATMOSPHERIC CHEMIST 09/28/2024 4:52 AM ATMOSPHERIC CHEMIST Result Anitha Flores MD LAB POCT ORDERABLES - DEVICE Fin al Result Performing Organization Address [facility] de Phone Number [facility] [place] [address] * (ABNORMAL) POCT glucose (09/28/2024 12:29 AM ATMOSPHERIC CHEMIST) Glucose, POC 232(H) 70 - 199 mg/dL Blood 09/28/2024 12:2 9 AM ATMOSPHERIC CHEMIST 09/28/2024 12:29 AM ATMOSPHERIC CHEMIST us Stuart Flores MD LAB POCT ORDERABLES - DEVICE Fin al Result Performing Organization Address [facility] Co de Phone Number [facility] [place] [address] * (ABNORMAL) eGFR (09/28/2024 12:06 AM ATMOSPHERIC CHEMIST) eGFR 15(L) >=60 mL/min/1. 73 m2 Comment: Interpretive Data [...] interpretive data was last reviewed 2021. Blood 09/28/2024 12:0 6 AM ATMOSPHERIC CHEMIST 09/28/2024 12:22 AM ATMOSPHERIC CHEMIST us Najma Pires MD LAB BLOOD ORDERABLES Final Result Performing Organization Address [facility] Co de Phone Number [facility] [place] [address] * (ABNORMAL) Differential, auto (09/28/2024 12:06 AM ATMOSPHERIC CHEMIST) Neutrophil abs 3.3 1.5 - 6.5 K/cumm Imm gran abs 0.0 0.0 - 0.1 K/cumm [facility] Lymphocyte abs 1.2 0.8 - 3.3 K/cumm [facility] Monocyte abs 1.0(H) 0.2 - 0.8 K/cumm [facility] Eosinophil abs 0.7(H) 0.0 - 0.5 K/cumm [facility] Basophil abs 0.1 0.0 - 0.1 K/cumm [facility] Neutrophil pct 52.8 % [facility] Comment: Interpretive Data Percent cell count reference ranges are not reported, since discordance with absolute values may lead to misinterpretation of CBC data. Current Interpretive Data was last revised on 2017. Imm gran pct 0.5 % [facility] Comment: Interpretive Data Percent cell count reference ranges are not reported, since discordance with absolute values may lead to misinterpretation of CBC data. Current Interpretive Data was last revised on 2017. Lymphocyte pct 19.0 % [facility] Comment: Interpretive Data Percent cell count reference ranges are not reported, since discordance with absolute values may lead to misinterpretation of CBC data. Current Interpretive Data was last revised on 2017. Monocyte pct 15.7 % [facility] Comment: Interpretive Data Percent cell count reference ranges are not reported, since discordance with absolute values may lead to misinterpretation of CBC data. Current Interpretive Data was last revised on 2017. Eosinophil pct 11.2 % [facility] Comment: Interpretive Data Percent cell count reference ranges are not reported, since discordance with absolute values may lead to misinterpretation of CBC data. Current Interpretive Data was last revised on 2017. Basophil pct 0.8 % [facility] Comment: Interpretive Data Percent cell count reference ranges are not reported, since discordance with absolute values may lead to misinterpretation of CBC data. Current Interpretive Data was last revised on 2017. Blood 09/28/2024 12:0 6 AM ATMOSPHERIC CHEMIST 09/28/2024 12:24 AM ATMOSPHERIC CHEMIST us Najma Pires MD LAB BLOOD ORDERABLES Final Result [facility] [place] [address] * (ABNORMAL) CBC with auto differential (09/28/2024 12:06 AM ATMOSPHERIC CHEMIST) WBC 6.2 3.8 - 9.9 K/cumm Hgb 11.4(L) 11.9 - 15.5 g/dL [facility] Hct 33.7(L) 35.6 - 45.5 % [facility] Plt 64(L) 150 - 400 K/cumm [facility] MPV 11.8 9.1 - 12.3 fL [facility] RBC 3.54(L) 3.90 - 5.20 M/cumm [facility] MCV 95.2 81.3 - 96.4 fL [facility] MCH 32.2 27.1 - 33.3 pg [facility] MCHC 33.8 32.3 - 35.7 g/dL [facility] RDW CV 14.6 11.1 - 14.9 % [facility] RDW SD 50.9(H) 35.7 - 48.1 fL [facility] NRBC abs 0.00 0.00 - 0.01 K/cumm [facility] Blood 09/28/2024 12:0 6 AM ATMOSPHERIC CHEMIST 09/28/2024 12:24 AM ATMOSPHERIC CHEMIST us Najma Pires MD LAB BLOOD ORDERABLES Final Result [facility] [place] [address] * (ABNORMAL) Protime-INR (09/28/2024 12:06 AM ATMOSPHERIC CHEMIST) [facility] PT 16.2(H) 9.7 - 13.0 sec INR 1.49(H) 0.90 - 1.20 [facility] Comment: Interpretive data Oral anticoagulant therapeutic ranges: Venous thromboembolism prophylaxis or treatment: 2.0-3.0 CARDIOLOGY Standard range: 2.0-3.0 High-intensity range: 2.5-3.5 Refer to indication-specific guidelines for appropriate target ranges for prosthetic heart valve replacement. Current interpretive data was last revised on 2019. Blood 09/28/2024 12:0 6 AM ATMOSPHERIC CHEMIST 09/28/2024 12:35 AM ATMOSPHERIC CHEMIST us Stuart Flores MD LAB BLOOD ORDERABLES Final Resul t Performing Organization Address [facility] Co de Phone Number [facility] [place] [address] * Phosphorus (09/28/2024 12:06 AM ATMOSPHERIC CHEMIST) Pathologist [facility] [place] Phosphorus, pl 2.5 2.3 - 4.5 mg/dL Blood 09/28/2024 12:0 6 AM ATMOSPHERIC CHEMIST 09/28/2024 12:22 AM ATMOSPHERIC CHEMIST us Stuart Flores MD LAB BLOOD ORDERABLES Final Resul t Performing Organization Address [facility] de Phone Number [facility] [place] [place] [address] * (ABNORMAL) Magnesium (09/28/2024 12:06 AM ATMOSPHERIC CHEMIST) [facility] Magnesium 2.9(H) 1.4 - 2.5 mg/dL Blood 09/28/2024 12:0 6 AM ATMOSPHERIC CHEMIST 09/28/2024 12:22 AM ATMOSPHERIC CHEMIST us Stuart Flores MD LAB BLOOD ORDERABLES Final Resul t Performing Organization Address [facility] de Phone Number [facility] [place] [place] [address] * (ABNORMAL) Comprehensive metabolic panel (09/28/2024 12:06 AM ATMOSPHERIC CHEMIST) Sodium 143 135 - 145 mmol/L Potassium, pl 3.5 3.3 - 4.9 mmol/L [facility] Chloride 101 97 - 110 mmol/L [facility] CO2 27 22 - 32 mmol/L [facility] Anion gap 15 2 - 15 mmol/L [facility] BUN 74(H) 6 - 25 mg/dL [facility] Creatinine 3.29(H) 0.60 - 1.10 mg/dL [facility] Glucose 244(H) 70 - 199 mg/dL [facility] Comment: Interpretive Data Fasting glucose [...] interpretive data was last revised 2022. Calcium 10.5(H) 8.5 - 10.3 mg/dL [facility] Bilirubin, total 2.6(H) 0.1 - 1.2 mg/dL [facility] Protein, pl 6.9 6.5 - 8.5 g/dL [facility] Albumin 4.4 3.5 - 5.0 g/dL [facility] Alk phos 80 40 - 130 Units/L [facility] ALT 18 7 - 45 Units/L [facility] AST 29 10 - 45 Units/L [facility] Blood 09/28/2024 12:0 6 AM ATMOSPHERIC CHEMIST 09/28/2024 12:22 AM ATMOSPHERIC CHEMIST us Najma Pires MD LAB BLOOD ORDERABLES Final Result Performing Organization Address [facility] Co de Phone Number [facility] [place] [address] * (ABNORMAL) POCT glucose (09/27/2024 11:55 PM ATMOSPHERIC CHEMIST) [facility] Glucose, POC 224(H) 70 - 199 mg/dL Blood 09/27/2024 11:5 5 PM ATMOSPHERIC CHEMIST 09/27/2024 11:55 PM ATMOSPHERIC CHEMIST us Stuart Flores MD LAB POCT ORDERABLES - DEVICE Fin al Result Performing Organization Address [facility] Co de Phone Number [facility] Department [place] [address] * POCT glucose (09/27/2024 8:03 PM ATMOSPHERIC CHEMIST) Glucose, POC 197 70 - 199 mg/dL Blood 09/27/2024 8:03 PM ATMOSPHERIC CHEMIST 09/27/2024 8:03 PM ATMOSPHERIC CHEMIST us Stuart Flores MD LAB POCT ORDERABLES - DEVICE Fin al Result Performing Organization Address City/[facility] [place] [address] * (ABNORMAL) POCT glucose (09/27/2024 4:26 PM ATMOSPHERIC CHEMIST) Glucose, POC 203(H) 70 - 199 mg/dL Blood 09/27/2024 4:26 PM ATMOSPHERIC CHEMIST 09/27/2024 4:26 PM ATMOSPHERIC CHEMIST us Stuart Flores MD LAB POCT ORDERABLES - DEVICE Fin al Result Performing Organization Address [facility] [place] [address] * (ABNORMAL) POCT glucose (09/27/2024 11:49 AM ATMOSPHERIC CHEMIST) Glucose, POC 241(H) 70 - 199 mg/dL Blood 09/27/2024 11:4 9 AM ATMOSPHERIC CHEMIST 09/27/2024 11:49 AM ATMOSPHERIC CHEMIST us Stuart Flores MD LAB POCT ORDERABLES - DEVICE Fin al Result Performing Organization Address [facility] [place] [address] * POCT glucose (09/27/2024 8:05 AM ATMOSPHERIC CHEMIST) Glucose, POC 199 70 - 199 mg/dL Blood 09/27/2024 8:05 AM ATMOSPHERIC CHEMIST 09/27/2024 8:05 AM ATMOSPHERIC CHEMIST us Stuart Flores MD LAB POCT ORDERABLES - DEVICE Fin al Result Performing Organization Address [facility] de Phone Number [facility] [place] [address] * (ABNORMAL) POCT glucose (09/27/2024 4:24 AM ATMOSPHERIC CHEMIST) Glucose, POC 215(H) 70 - 199 mg/dL Blood 09/27/2024 4:24 AM ATMOSPHERIC CHEMIST 09/27/2024 4:24 AM ATMOSPHERIC CHEMIST us Stuart Flores MD LAB POCT ORDERABLES - DEVICE Fin al Result Performing Organization Address [facility] de Phone Number [facility] Department [place] [address] * POCT glucose (09/26/2024 11:20 PM ATMOSPHERIC CHEMIST) Glucose, POC 168 70 - 199 mg/dL Blood 09/26/2024 11:2 0 PM ATMOSPHERIC CHEMIST 09/26/2024 11:20 PM ATMOSPHERIC CHEMIST us Stuart Flores MD LAB POCT ORDERABLES - DEVICE Fin al Result Performing Organization Address [facility] de Phone Number [facility] [place] [address] * (ABNORMAL) eGFR (09/26/2024 9:23 PM ATMOSPHERIC CHEMIST) eGFR 10(L) >=60 mL/min/1. 73 m2 Comment: Interpretive Data [...] interpretive data was last reviewed 2021. Blood 09/26/2024 9:23 PM ATMOSPHERIC CHEMIST 09/26/2024 10:24 PM ATMOSPHERIC CHEMIST us Najma Pires MD LAB BLOOD ORDERABLES Final Result [facility] Department [place] [address] * (ABNORMAL) Differential, auto (09/26/2024 9:23 PM ATMOSPHERIC CHEMIST) Neutrophil abs 3.7 1.5 - 6.5 K/cumm Imm gran abs 0.0 0.0 - 0.1 K/cumm [facility] Lymphocyte abs 1.6 0.8 - 3.3 K/cumm [facility] Monocyte abs 1.0(H) 0.2 - 0.8 K/cumm [facility] Eosinophil abs 0.7(H) 0.0 - 0.5 K/cumm [facility] Basophil abs 0.0 0.0 - 0.1 K/cumm [facility] Neutrophil pct 53.1 % [facility] Comment: Interpretive Data Percent cell count reference ranges are not reported, since discordance with absolute values may lead to misinterpretation of CBC data. Current Interpretive Data was last revised on 2017. Imm gran pct 0.4 % [facility] Comment: Interpretive Data Percent cell count reference ranges are not reported, since discordance with absolute values may lead to misinterpretation of CBC data. Current Interpretive Data was last revised on 2017. Lymphocyte pct 23.0 % [facility] Comment: Interpretive Data Percent cell count reference ranges are not reported, since discordance with absolute values may lead to misinterpretation of CBC data. Current Interpretive Data was last revised on 2017. Monocyte pct 13.5 % [facility] Comment: Interpretive Data Percent cell count reference ranges are not reported, since discordance with absolute values may lead to misinterpretation of CBC data. Current Interpretive Data was last revised on 2017. Eosinophil pct 9.4 % [facility] Comment: Interpretive Data Percent cell count reference ranges are not reported, since discordance with absolute values may lead to misinterpretation of CBC data. Current Interpretive Data was last revised on 2017. Basophil pct 0.6 % [facility] Comment: Interpretive Data Percent cell count reference ranges are not reported, since discordance with absolute values may lead to misinterpretation of CBC data. Current Interpretive Data was last revised on 2017. Blood 09/26/2024 9:23 PM ATMOSPHERIC CHEMIST 09/26/2024 10:25 PM ATMOSPHERIC CHEMIST us Najma Pires MD LAB BLOOD ORDERABLES Final Result [facility] Department [place] [address] * (ABNORMAL) CBC with auto differential (09/26/2024 9:23 PM ATMOSPHERIC CHEMIST) Pathologist [facility] [place] WBC 7.0 3.8 - 9.9 K/cumm Hgb 11.1(L) 11.9 - 15.5 g/dL [facility] Hct 31.6(L) 35.6 - 45.5 % [facility] Plt 66(L) 150 - 400 K/cumm [facility] MPV 12.7(H) 9.1 - 12.3 fL [facility] RBC 3.44(L) 3.90 - 5.20 M/cumm [facility] MCV 91.9 81.3 - 96.4 fL [facility] MCH 32.3 27.1 - 33.3 pg [facility] MCHC 35.1 32.3 - 35.7 g/dL [facility] RDW CV 14.6 11.1 - 14.9 % [facility] RDW SD 49.0(H) 35.7 - 48.1 fL [facility] NRBC abs 0.00 0.00 - 0.01 K/cumm [facility] Blood 09/26/2024 9:23 PM ATMOSPHERIC CHEMIST 09/26/2024 10:25 PM ATMOSPHERIC CHEMIST Najma Pires MD LAB BLOOD ORDERABLES Final Result Performing Organization Address [facility] de Phone Number [facility] [place] [address] * (ABNORMAL) Protime-INR (09/26/2024 9:23 PM ATMOSPHERIC CHEMIST) PT 15.3(H) 9.7 - 13.0 sec INR 1.41(H) 0.90 - 1.20 [facility] Comment: Interpretive data Oral anticoagulant therapeutic ranges: Venous thromboembolism prophylaxis or treatment: 2.0-3.0 CARDIOLOGY Standard range: 2.0-3.0 High-intensity range: 2.5-3.5 Refer to indication-specific guidelines for appropriate target ranges for prosthetic heart valve replacement. Current interpretive data was last revised on 2019. Blood 09/26/2024 9:23 PM ATMOSPHERIC CHEMIST 09/26/2024 10:19 PM ATMOSPHERIC CHEMIST Stuart Flores MD LAB BLOOD ORDERABLES Final Resul t Performing Organization Address [facility] Co de Phone Number [facility] [place] [address] * Phosphorus (09/26/2024 9:23 PM ATMOSPHERIC CHEMIST) Phosphorus, pl 3.2 2.3 - 4.5 mg/dL Comment:Repeated and Verifie d Blood 09/26/2024 9:23 PM ATMOSPHERIC CHEMIST 09/26/2024 10:24 PM ATMOSPHERIC CHEMIST us Stuart Flores MD LAB BLOOD ORDERABLES Final Resul t Performing Organization Address City/[facility]/ZIP Co de Phone Number [facility] Department [place] [address] * (ABNORMAL) Magnesium (09/26/2024 9:23 PM ATMOSPHERIC CHEMIST) Magnesium 3.0(H) 1.4 - 2.5 mg/dL Blood 09/26/2024 9:23 PM ATMOSPHERIC CHEMIST 09/26/2024 10:24 PM ATMOSPHERIC CHEMIST us Stuart Flores MD LAB BLOOD ORDERABLES Final Resul t Performing Organization Address [facility] de Phone Number [facility] Department [place] [address] * (ABNORMAL) Comprehensive metabolic panel (09/26/2024 9:23 PM ATMOSPHERIC CHEMIST) Pathologist [facility] [place] Sodium 143 135 - 145 mmol/L Potassium, pl 3.3 3.3 - 4.9 mmol/L [facility] Chloride 100 97 - 110 mmol/L [facility] CO2 26 22 - 32 mmol/L [facility] Anion gap 17(H) 2 - 15 mmol/L [facility] BUN 93(H) 6 - 25 mg/dL [facility] Creatinine 4.70(H) 0.60 - 1.10 mg/dL [facility] Glucose 196 70 - 199 mg/dL [facility] Comment: Interpretive Data Fasting glucose [...] interpretive data was last revised 2022. Calcium 10.1 8.5 - 10.3 mg/dL [facility] Bilirubin, total 2.1(H) 0.1 - 1.2 mg/dL [facility] Protein, pl 6.6 6.5 - 8.5 g/dL [facility] Albumin 4.3 3.5 - 5.0 g/dL [facility] Alk phos 85 40 - 130 Units/L [facility] ALT 13 7 - 45 Units/L [facility] AST 30 10 - 45 Units/[facility] Blood 09/26/2024 9:23 PM ATMOSPHERIC CHEMIST 09/26/2024 10:24 PM ATMOSPHERIC CHEMIST Najma Pires MD LAB BLOOD ORDERABLES Final Result Performing Organization Address [facility] Co de Phone Number [facility] [place] [address] * (ABNORMAL) POCT glucose (09/26/2024 7:53 PM ATMOSPHERIC CHEMIST) Glucose, POC 204(H) 70 - 199 mg/dL Blood 09/26/2024 7:53 PM ATMOSPHERIC CHEMIST 09/26/2024 7:53 PM ATMOSPHERIC CHEMIST us Stuart Flores MD LAB POCT ORDERABLES - DEVICE Fin al Result Performing Organization Address [facility] de Phone Number [facility] [place] [address] * (ABNORMAL) POCT glucose (09/26/2024 4:37 PM ATMOSPHERIC CHEMIST) Glucose, POC 256(H) 70 - 199 mg/dL Blood 09/26/2024 4:37 PM ATMOSPHERIC CHEMIST 09/26/2024 4:37 PM ATMOSPHERIC CHEMIST us Stuart Flores MD LAB POCT ORDERABLES - DEVICE Fin al Result Performing Organization Address [facility] Co de Phone Number [facility] [place] [place] [address] * (ABNORMAL) eGFR (09/26/2024 3:40 PM ATMOSPHERIC CHEMIST) Pathologist [facility] [place] eGFR 9(L) >=60 mL/min/1. 73 m2 Comment: Interpretive Data [...] interpretive data was last reviewed 2021. Blood 09/26/2024 3:40 PM ATMOSPHERIC CHEMIST 09/26/2024 5:50 PM ATMOSPHERIC CHEMIST us Stuart Flores MD LAB BLOOD ORDERABLES Final Resul t [facility] Department [place] [address] * (ABNORMAL) Basic metabolic panel (09/26/2024 3:40 PM ATMOSPHERIC CHEMIST) Pathologist [facility] [place] Sodium 139 135 - 145 mmol/L Potassium, pl 3.4 3.3 - 4.9 mmol/L [facility] Chloride 98 97 - 110 mmol/L [facility] CO2 25 22 - 32 mmol/L [facility] Anion gap 16(H) 2 - 15 mmol/L [facility] BUN 87(H) 6 - 25 mg/dL [facility] Creatinine 4.94(H) 0.60 - 1.10 mg/dL [facility] Glucose 273(H) 70 - 199 mg/dL [facility] Comment: Interpretive Data Fasting glucose [...] interpretive data was last revised 2022. Calcium 10.1 8.5 - 10.3 mg/dL [facility] Blood 09/26/2024 3:40 PM ATMOSPHERIC CHEMIST 09/26/2024 5:50 PM ATMOSPHERIC CHEMIST us Stuart Flores MD LAB BLOOD ORDERABLES Final Resul t Performing Organization Address [facility] Co de Phone Number [facility] [place] [address] * (ABNORMAL) POCT glucose (09/26/2024 11:16 AM ATMOSPHERIC CHEMIST) Glucose, POC 290(H) 70 - 199 mg/dL Blood 09/26/2024 11:1 6 AM ATMOSPHERIC CHEMIST 09/26/2024 11:16 AM ATMOSPHERIC CHEMIST Result Anitha Flores MD LAB POCT ORDERABLES - DEVICE Fin al Result [facility] [place] [address] * (ABNORMAL) POCT glucose (09/26/2024 9:40 AM ATMOSPHERIC CHEMIST) Glucose, POC 233(H) 70 - 199 mg/dL Blood 09/26/2024 9:40 AM ATMOSPHERIC CHEMIST 09/26/2024 9:40 AM ATMOSPHERIC CHEMIST us Stuart Flores MD LAB POCT ORDERABLES - DEVICE Fin al Result Performing Organization Address [facility] de Phone Number [facility] [place] [address] * (ABNORMAL) Lactate (09/26/2024 8:16 AM ATMOSPHERIC CHEMIST) Lactate 3.4(H) 0.7 - 2.0 mmol/L Blood 09/26/2024 8:16 AM ATMOSPHERIC CHEMIST 09/26/2024 8:25 AM ATMOSPHERIC CHEMIST us Stuart Flores MD LAB BLOOD ORDERABLES Final Resul t Performing Organization Address [facility] Phone Number [facility] [place] [address] * (ABNORMAL) POCT glucose (09/26/2024 7:45 AM ATMOSPHERIC CHEMIST) Glucose, POC 305(H) 70 - 199 mg/dL Blood 09/26/2024 7:45 AM ATMOSPHERIC CHEMIST 09/26/2024 7:45 AM ATMOSPHERIC CHEMIST us Stuart Flores MD LAB POCT ORDERABLES - DEVICE Fin al Result Performing Organization Address [facility] de Phone Number [facility] [place] [address] * (ABNORMAL) POCT glucose (09/26/2024 4:26 AM ATMOSPHERIC CHEMIST) Glucose, POC 283(H) 70 - 199 mg/dL Blood 09/26/2024 4:26 AM ATMOSPHERIC CHEMIST 09/26/2024 4:26 AM ATMOSPHERIC CHEMIST us Stuart Flores MD LAB POCT ORDERABLES - DEVICE Fin al Result Performing Organization Address [facility] Co de Phone Number [facility] [place] [address] * CT Abdomen Pelvis WO Contrast (09/26/2024 3:17 AM ATMOSPHERIC CHEMIST) Anatomical Region Laterality Modality Body N/A Computed Tomogra phy 09/26/2024 3:35 AM ATMOSPHERIC CHEMIST Impressions 09/26/2024 8:12 AM ATMOSPHERIC CHEMIST 1. No acute intra-abdominal findings. 2. Cirrhotic hepatic morphology without CT evidence of decompensated portal hypertension. 3. New right lower lobe 8 mm pulmonary nodule. Recommend follow up of the Incidental lung nodule Additional Imaging In [address] Dictated by: Nacho Rosa M.D. The radiology attending physician has personally reviewed this study, and had reviewed and/or edited this written report and agrees with it. Electronically signed by: Juan Randall MD Narrative 09/26/2024 8:12 AM ATMOSPHERIC CHEMIST EXAMINATION: Computed tomography of the abdomen and pelvis without intravenous contrast HISTORY: Decompensated cirrhosis with abdominal pain, encephalopathy, and lactic acidosis TECHNIQUE: Transaxial computed tomographic images of the abdomen and pelvis were obtained without intravenous contrast according to the standard protocol. COMPARISON: 06/08/2024 FINDINGS: Evaluation of lung bases is limited by respiratory motion. There appears to be a new 8 mm rounded pulmonary nodule in the right lower lobe. No pleural or pericardial effusion. Heart size is normal. Coronary vascular calcifications. Nasogastric tube is looped in the stomach and terminates in the gastric fundus. Cirrhotic hepatic morphology. 4.5 cm cystic lesion in the hepatic dome, unchanged. Cholelithiasis without acute cholecystitis. No biliary ductal dilatation. Unchanged linear calcification adjacent to the mid to distal common bile duct. No choledocholithiasis is seen. Normal pancreas and adrenal glands. No splenomegaly. The kidneys are normal in size without hydronephrosis or nephrolithiasis. The urinary bladder is decompressed by Stewart catheter. The uterus is anteverted. No adnexal mass. No evidence of bowel obstruction. A rectal tube is in place. No free intraperitoneal fluid or gas. Appendectomy clips. No abdominal or pelvic lymphadenopathy. Normal caliber abdominal aorta. No suspicious osseous lesion. Procedure Note Juan Randall MD - 09/26/2024 EXAMINATION: Computed tomography of the abdomen and pelvis without intravenous contrast HISTORY: Decompensated cirrhosis with abdominal pain, encephalopathy, and lactic acidosis TECHNIQUE: Transaxial computed tomographic images of the abdomen and pelvis were obtained without intravenous contrast according to the standard protocol. COMPARISON: 06/08/2024 FINDINGS: Evaluation of lung bases is limited by respiratory motion. There appears to be a new 8 mm rounded pulmonary nodule in the right lower lobe. No pleural or pericardial effusion. Heart size is normal. Coronary vascular calcifications. Nasogastric tube is looped in the stomach and terminates in the gastric fundus. Cirrhotic hepatic morphology. 4.5 cm cystic lesion in the hepatic dome, unchanged. Cholelithiasis without acute cholecystitis. No biliary ductal dilatation. Unchanged linear calcification adjacent to the mid to distal common bile duct. No choledocholithiasis is seen. Normal pancreas and adrenal glands. No splenomegaly. The kidneys are normal in size without hydronephrosis or nephrolithiasis. The urinary bladder is decompressed by Stewart catheter. The uterus is anteverted. No adnexal mass. No evidence of bowel obstruction. A rectal tube is in place. No free intraperitoneal fluid or gas. Appendectomy clips. No abdominal or pelvic lymphadenopathy. Normal caliber abdominal aorta. No suspicious osseous lesion. IMPRESSION: 1. No acute intra-abdominal findings. 2. Cirrhotic hepatic morphology without CT evidence of decompensated portal hypertension. 3. New right lower lobe 8 mm pulmonary nodule. Recommend follow up of the Incidental lung nodule Additional Imaging In [address] Dictated by: Nacho Rosa M.D. The radiology attending physician has personally reviewed this study, and had reviewed and/or edited this written report and agrees with it. Electronically signed by: Juan Randall MD us Stuart Flores MD IMG CT PROCEDURES Final Result * (ABNORMAL) Lactate (09/26/2024 12:44 AM ATMOSPHERIC CHEMIST) Lactate 3.5(H) 0.7 - 2.0 mmol/L Blood 09/26/2024 12:4 4 AM ATMOSPHERIC CHEMIST 09/26/2024 1:06 AM ATMOSPHERIC CHEMIST us Stuart Flores MD LAB BLOOD ORDERABLES Final Resul t [facility] [place] [address] * (ABNORMAL) POCT glucose (09/26/2024 12:08 AM ATMOSPHERIC CHEMIST) Glucose, POC 302(H) 70 - 199 mg/dL Blood 09/26/2024 12:0 8 AM ATMOSPHERIC CHEMIST 09/26/2024 12:08 AM ATMOSPHERIC CHEMIST us Stuart Flores MD LAB POCT ORDERABLES - DEVICE [place] [address] * (ABNORMAL) eGFR (09/25/2024 10:48 PM ATMOSPHERIC CHEMIST) eGFR 9(L) >=60 mL/min/1. 73 m2 Comment: Interpretive Data [...] interpretive data was last reviewed 2021. Blood 09/25/2024 10:4 8 PM ATMOSPHERIC CHEMIST 09/26/2024 12:38 AM ATMOSPHERIC CHEMIST us Najma Pires MD LAB BLOOD ORDERABLES Final Result [facility] [place] [address] * (ABNORMAL) Differential, auto (09/25/2024 10:48 PM ATMOSPHERIC CHEMIST) Neutrophil abs 5.9 1.5 - 6.5 K/cumm Imm gran abs 0.0 0.0 - 0.1 K/cumm [facility] Lymphocyte abs 1.8 0.8 - 3.3 K/cumm [facility] Monocyte abs 1.2(H) 0.2 - 0.8 K/cumm [facility] Eosinophil abs 0.5 0.0 - 0.5 K/cumm [facility] Basophil abs 0.1 0.0 - 0.1 K/cumm [facility] Neutrophil pct 62.4 % [facility] Comment: Interpretive Data Percent cell count reference ranges are not reported, since discordance with absolute values may lead to misinterpretation of CBC data. Current Interpretive Data was last revised on 2017. Imm gran pct 0.2 % [facility] Comment: Interpretive Data Percent cell count reference ranges are not reported, since discordance with absolute values may lead to misinterpretation of CBC data. Current Interpretive Data was last revised on 2017. Lymphocyte pct 19.1 % [facility] Comment: Interpretive Data Percent cell count reference ranges are not reported, since discordance with absolute values may lead to misinterpretation of CBC data. Current Interpretive Data was last revised on 2017. Monocyte pct 12.3 % [facility] Comment: Interpretive Data Percent cell count reference ranges are not reported, since discordance with absolute values may lead to misinterpretation of CBC data. Current Interpretive Data was last revised on 2017. Eosinophil pct 5.4 % [facility] Comment: Interpretive Data Percent cell count reference ranges are not reported, since discordance with absolute values may lead to misinterpretation of CBC data. Current Interpretive Data was last revised on 2017. Basophil pct 0.6 % [facility] Comment: Interpretive Data Percent cell count reference ranges are not reported, since discordance with absolute values may lead to misinterpretation of CBC data. Current Interpretive Data was last revised on 2017. Blood 09/25/2024 10:4 8 PM ATMOSPHERIC CHEMIST 09/26/2024 12:37 AM ATMOSPHERIC CHEMIST Najma Pires MD LAB BLOOD ORDERABLES Final Result [facility] [place] [address] * (ABNORMAL) CBC with auto differential (09/25/2024 10:48 PM ATMOSPHERIC CHEMIST) Pathologist [facility] [place] WBC 9.5 3.8 - 9.9 K/cumm Hgb 12.1 11.9 - 15.5 g/dL [facility] Hct 34.4(L) 35.6 - 45.5 % [facility] Plt 81(L) 150 - 400 K/cumm [facility] MPV 12.5(H) 9.1 - 12.3 fL [facility] RBC 3.85(L) 3.90 - 5.20 M/cumm [facility] MCV 89.4 81.3 - 96.4 fL [facility] MCH 31.4 27.1 - 33.3 pg [facility] MCHC 35.2 32.3 - 35.7 g/dL [facility] RDW CV 14.6 11.1 - 14.9 % [facility] RDW SD 46.7 35.7 - 48.1 fL [facility] NRBC abs 0.00 0.00 - 0.01 K/cumm [facility] Blood 09/25/2024 10:4 8 PM ATMOSPHERIC CHEMIST 09/26/2024 12:37 AM ATMOSPHERIC CHEMIST Najma Pires MD LAB BLOOD ORDERABLES Final Result [facility] [place] [place] [address] * (ABNORMAL) Protime-INR (09/25/2024 10:48 PM ATMOSPHERIC CHEMIST) PT 15.5(H) 9.7 - 13.0 sec INR 1.42(H) 0.90 - 1.20 [facility] Comment: Interpretive data Oral anticoagulant therapeutic ranges: Venous thromboembolism prophylaxis or treatment: 2.0-3.0 CARDIOLOGY Standard range: 2.0-3.0 High-intensity range: 2.5-3.5 Refer to indication-specific guidelines for appropriate target ranges for prosthetic heart valve replacement. Current interpretive data was last revised on 2019. Blood 09/25/2024 10:4 8 PM ATMOSPHERIC CHEMIST 09/26/2024 12:41 AM ATMOSPHERIC CHEMIST us Stuart Flores MD LAB BLOOD ORDERABLES Final Resul t [facility] Department [place] [address] * (ABNORMAL) Comprehensive metabolic panel (09/25/2024 10:48 PM ATMOSPHERIC CHEMIST) Sodium 140 135 - 145 mmol/L Potassium, pl 2.8(L) 3.3 - 4.9 mmol/L [facility] Chloride 95(L) 97 - 110 mmol/L [facility] CO2 26 22 - 32 mmol/L [facility] Anion gap 19(H) 2 - 15 mmol/L [facility] BUN 89(H) 6 - 25 mg/dL [facility] Creatinine 5.24(H) 0.60 - 1.10 mg/dL [facility] Glucose 323(H) 70 - 199 mg/dL [facility] Comment: Interpretive Data Fasting glucose [...] interpretive data was last revised 2022. Calcium 10.2 8.5 - 10.3 mg/dL [facility] Bilirubin, total 2.1(H) 0.1 - 1.2 mg/dL [facility] Protein, pl 6.7 6.5 - 8.5 g/dL [facility] Albumin 3.9 3.5 - 5.0 g/dL [facility] Alk phos 97 40 - 130 Units/L [facility] ALT 15 7 - 45 Units/L [facility] AST 34 10 - 45 Units/L [facility] Blood 09/25/2024 10:4 8 PM ATMOSPHERIC CHEMIST 09/26/2024 12:38 AM ATMOSPHERIC CHEMIST Najma Pires MD LAB BLOOD ORDERABLES Final Result Performing Organization Address [facility] Co de Phone Number [facility] [place] [address] * (ABNORMAL) POCT glucose (09/25/2024 8:27 PM ATMOSPHERIC CHEMIST) Glucose, POC 318(H) 70 - 199 mg/dL Blood 09/25/2024 8:27 PM ATMOSPHERIC CHEMIST 09/25/2024 8:27 PM ATMOSPHERIC CHEMIST Stuart Flores MD LAB POCT ORDERABLES - DEVICE Fin al Result Performing Organization Address [facility] Co de Phone Number [facility] [place] [address] * (ABNORMAL) POCT glucose (09/25/2024 6:12 PM ATMOSPHERIC CHEMIST) Glucose, POC 288(H) 70 - 199 mg/dL Blood 09/25/2024 6:12 PM ATMOSPHERIC CHEMIST 09/25/2024 6:12 PM ATMOSPHERIC CHEMIST Stuart Flores MD LAB POCT ORDERABLES - DEVICE Fin al Result Performing Organization Address [facility] Co de Phone Number [facility] [place] [address] * (ABNORMAL) POCT glucose (09/25/2024 4:12 PM ATMOSPHERIC CHEMIST) Glucose, POC 263(H) 70 - 199 mg/dL Blood 09/25/2024 4:12 PM ATMOSPHERIC CHEMIST 09/25/2024 4:12 PM ATMOSPHERIC CHEMIST us Stuart Flores MD LAB POCT ORDERABLES - DEVICE Fin al Result Performing Organization Address [facility] Co de Phone Number [facility] [place] [address] * (ABNORMAL) Lactate (09/25/2024 3:24 PM ATMOSPHERIC CHEMIST) Pathologist [facility] Lactate 4.9(C) 0.7 - 2.0 mmol/L Blood 09/25/2024 3:24 PM ATMOSPHERIC CHEMIST 09/25/2024 3:54 PM ATMOSPHERIC CHEMIST us Stuart Flores MD LAB BLOOD ORDERABLES Final Resul t Performing Organization Address [facility] de Phone Number [facility] [place] [address] * Critical Result Callback Chemistry (09/25/2024 3:24 PM ATMOSPHERIC CHEMIST) Date Notified [id number] Time Notified 1625 [facility] TestName Lactate [facility] Called/Read Back Javier DUNNE Credentials TYRA DUNNE Called By MARTHA DUNNE Blood 09/25/2024 3:24 PM ATMOSPHERIC CHEMIST 09/25/2024 3:54 PM ATMOSPHERIC CHEMIST us Stuart Flores MD LAB BLOOD ORDERABLES Final Resul t Performing Organization Address [facility] de Phone Number [facility] [place] [address] * Urinalysis reflex to microscopic and culture Urine (09/25/2024 3:24 PM ATMOSPHERIC CHEMIST) Color, ur Yellow Yellow Clarity, ur Clear Clear [facility] Specific gravity, ur 1.017 1.003 - 1.030 [facility] pH, urine 5.5 [facility] Comment: Interpretive Data U rine pH is affected by diet, medications, systemic acid-base disturbances, and renal tubular function. pH may affect urinary stone formation. For example, urine pH below 6.0 may help reduce the tendency for calcium phosphate stones and pH greater than 6.0 may reduce the tendency for uric acid stone formation. Source: [facility] Current Interpretive Data was last revised on 2017 Protein, ur ql Negative Negative [facility] Glucose, ur ql Negative Negative [facility] Ketones, ur Negative Negative [facility] Bilirubin, ur Negative Negative [facility] Blood, ur Negative Negative [facility] Urobilinogen, ur <2.0 <2.0 mg/dL [facility] Nitrite, ur Negative Negative [facility] Leukocyte esterase, ur Negative Negative [facility] UA reflex comment Reflex conditions for microscopic UA and culture not met. [facility] Urine 09/25/2024 3:24 PM ATMOSPHERIC CHEMIST 09/25/2024 3:42 PM ATMOSPHERIC CHEMIST us Britany Knight MD LAB MICROBIOLOGY - GENERAL ORD ERABLES Final Result Performing Organization Address [facility] Co de Phone Number [facility] [place] [address] * Sodium, urine, random (09/25/2024 3:24 PM ATMOSPHERIC CHEMIST) Sodium, ur 31 mmol/L Comment: Interpretive Data No reference range established. Current interpretive data was last revised 2018. Urine 09/25/2024 3:24 PM ATMOSPHERIC CHEMIST 09/25/2024 3:54 PM ATMOSPHERIC CHEMIST us Najma Pires MD LAB URINE ORDERABLES Final Result Performing Organization Address [facility] Co de Phone Number [facility] [place] [address] * (ABNORMAL) POCT glucose (09/25/2024 2:41 PM ATMOSPHERIC CHEMIST) Glucose, POC 315(H) 70 - 199 mg/dL Blood 09/25/2024 2:41 PM ATMOSPHERIC CHEMIST 09/25/2024 2:41 PM ATMOSPHERIC CHEMIST us Stuart Flores MD LAB POCT ORDERABLES - DEVICE Fin al Result Performing Organization Address [facility] de Phone Number [facility] Department [place] [address] * (ABNORMAL) POCT glucose (09/25/2024 12:32 PM ATMOSPHERIC CHEMIST) [facility] Glucose, POC 343(H) 70 - 199 mg/dL Blood 09/25/2024 12:3 2 PM ATMOSPHERIC CHEMIST 09/25/2024 12:32 PM ATMOSPHERIC CHEMIST Stuart Flores MD LAB POCT ORDERABLES - DEVICE Fin al Result Performing Organization Address [facility] de Phone Number [facility] Department [place] [address] * (ABNORMAL) Troponin I high-sensitivity 4-hour (09/25/2024 11:38 AM ATMOSPHERIC CHEMIST) Pathologist [facility] Trop I hs 80(H) <=17 ng/L Comment: Interpretive Data For further hscTnI resources including the diagnostic algorithm and an aid in interpretation, copy and paste this link: https://bjhlab.testcatalog.org/show/hsTrop-1 Current Interpretive Data last revised 2020. Trop I hs delta 6 ng/L [facility] Trop I hs interp Equivocal [facility] Blood 09/25/2024 11:3 8 AM ATMOSPHERIC CHEMIST 09/25/2024 12:27 PM ATMOSPHERIC CHEMIST us Stuart Flores MD LAB BLOOD ORDERABLES Final Resul t Performing Organization Address [facility]/ZIP Co de Phone Number [facility] [place] [address] * (ABNORMAL) POCT glucose (09/25/2024 11:14 AM ATMOSPHERIC CHEMIST) Pathologist [facility] Glucose, POC 312(H) 70 - 199 mg/dL Blood 09/25/2024 11:1 4 AM ATMOSPHERIC CHEMIST 09/25/2024 11:14 AM ATMOSPHERIC CHEMIST Stuart Flores MD LAB POCT ORDERABLES - DEVICE Fin al Result Performing Organization Address [facility] Co de Phone Number [facility] [place] [address] * (ABNORMAL) Troponin I high-sensitivity 2-hour (09/25/2024 9:51 AM ATMOSPHERIC CHEMIST) Pathologist [facility] Trop I hs 62(H) <=17 ng/L Comment: Previous critical value noted within 48 hours ago. Interpretive Data For further hscTnI resources including the diagnostic algorithm and an aid in interpretation, copy and paste this link: https://bjhlab.testcatalog.org/show/hsTrop-1 Current Interpretive Data last revised 2020. Trop I hs delta -12(C) ng/L [facility] Trop I hs interp Significa nt(C) [facility] Blood 09/25/2024 9:51 AM ATMOSPHERIC CHEMIST 09/25/2024 10:22 AM ATMOSPHERIC CHEMIST Stuart Flores MD LAB BLOOD ORDERABLES Final Resul t Performing Organization Address [facility]/ZIP Co de Phone Number [facility] [place] [address] * Critical result callback Cardio chemistry (09/25/2024 9:51 AM ATMOSPHERIC CHEMIST) Pathologist [facility] Date Notified [id number] Time Notified 1105 [facility] Test name Trop I hs 2hr [facility] Called/Read Back Javier [facility] Credentials RN [facility] Called By PD [facility] Blood 09/25/2024 9:51 AM ATMOSPHERIC CHEMIST 09/25/2024 10:22 AM ATMOSPHERIC CHEMIST Result Anitha Flores MD LAB BLOOD ORDERABLES Final Resul t Performing Organization Address [facility] de Phone Number [facility] [place] [address] * (ABNORMAL) POCT glucose (09/25/2024 9:19 AM ATMOSPHERIC CHEMIST) Glucose, POC 260(H) 70 - 199 mg/dL Blood 09/25/2024 9:19 AM ATMOSPHERIC CHEMIST 09/25/2024 9:19 AM ATMOSPHERIC CHEMIST Result Anitha Flores MD LAB POCT ORDERABLES - DEVICE Fin al Result Performing Organization Address [facility] de Phone Number [facility] Department [place] [address] * (ABNORMAL) Troponin I high-sensitivity series (baseline, 2hr, 4hr, 6hr) (09/25/2024 7:44 AM ATMOSPHERIC CHEMIST) Pathologist [facility] Trop I hs 74(H) <=17 ng/L Comment: Interpretive Data For further hscTnI resources including the diagnostic algorithm and an aid in interpretation, copy and paste this link: https://bjhlab.testcatalog.org/show/hsTrop-1 Current Interpretive Data last revised 2020. Blood 09/25/2024 7:44 AM ATMOSPHERIC CHEMIST 09/25/2024 7:57 AM ATMOSPHERIC CHEMIST Result Anitha Flores MD LAB BLOOD ORDERABLES Final Resul t Performing Organization Address [facility] de Phone Number [facility] [place] [address] * (ABNORMAL) Lactate (09/25/2024 7:44 AM ATMOSPHERIC CHEMIST) Lactate 3.6(H) 0.7 - 2.0 mmol/L Blood 09/25/2024 7:44 AM ATMOSPHERIC CHEMIST 09/25/2024 7:57 AM ATMOSPHERIC CHEMIST us Stuart Flores MD LAB BLOOD ORDERABLES Final Resul t Performing Organization Address [facility] de Phone Number [facility] [place] [address] * (ABNORMAL) POCT glucose (09/25/2024 7:32 AM ATMOSPHERIC CHEMIST) Glucose, POC 311(H) 70 - 199 mg/dL Blood 09/25/2024 7:32 AM ATMOSPHERIC CHEMIST 09/25/2024 7:32 AM ATMOSPHERIC CHEMIST us Stuart Flores MD LAB POCT ORDERABLES - DEVICE Fin al Result Performing Organization Address [facility] de Phone Number [facility] [place] [address] * (ABNORMAL) POCT glucose (09/25/2024 4:12 AM ATMOSPHERIC CHEMIST) Glucose, POC 334(H) 70 - 199 mg/dL Blood 09/25/2024 4:12 AM ATMOSPHERIC CHEMIST 09/25/2024 4:12 AM ATMOSPHERIC CHEMIST us Stuart Flores MD LAB POCT ORDERABLES - DEVICE Fin al Result Performing Organization Address [facility] de Phone Number [facility] [place] [address] * (ABNORMAL) POCT glucose (09/25/2024 2:52 AM ATMOSPHERIC CHEMIST) Glucose, POC 360(H) 70 - 199 mg/dL Blood 09/25/2024 2:52 AM ATMOSPHERIC CHEMIST 09/25/2024 2:52 AM ATMOSPHERIC CHEMIST us Stuart Flores MD LAB POCT ORDERABLES - DEVICE Fin al Result [facility] [place] [address] * XR Abdomen Ap 1 Vw (09/25/2024 1:32 AM ATMOSPHERIC CHEMIST) Anatomical Region Laterality Modality Body, Abdomen N/A Digital Radiogra phy 09/25/2024 8:29 AM ATMOSPHERIC CHEMIST Impressions 09/25/2024 4:40 PM ATMOSPHERIC CHEMIST Gastric tube tip coils over the fundus of the stomach with tip terminating over the gastric cardia. Side port overlies the gastric fundus. Cutaneous monitoring device seen over midline. Diffuse mild gaseous distention of small bowel and colon may be seen in the setting of ileus with collimation of the pelvis. New metallic densities projecting over the right abdomen are new from recent CT 06/08/2024. Dictated by: Fazal Estes MD PHD The radiology attending physician has personally reviewed this study, and had reviewed and/or edited this written report and agrees with it. Electronically signed by: Nessa Dodson M.D. Narrative 09/25/2024 4:40 PM ATMOSPHERIC CHEMIST EXAMINATION: Abdomen, one view. HISTORY: Intubation of the gastrointestinal tract COMPARISON: 04/21/2024 radiograph, CT 06/08/2024 Procedure Note Nessa Dodson MD - 09/25/2024 EXAMINATION: Abdomen, one view. HISTORY: Intubation of the gastrointestinal tract COMPARISON: 04/21/2024 radiograph, CT 06/08/2024 IMPRESSION: Gastric tube tip coils over the fundus of the stomach with tip terminating over the gastric cardia. Side port overlies the gastric fundus. Cutaneous monitoring device seen over midline. Diffuse mild gaseous distention of small bowel and colon may be seen in the setting of ileus with collimation of the pelvis. New metallic densities projecting over the right abdomen are new from recent CT 06/08/2024. Dictated by: Fazal Estes MD PHD The radiology attending physician has personally reviewed this study, and had reviewed and/or edited this written report and agrees with it. Electronically signed by: Nessa Dodson M.D. us Stuart Flores MD IMG XR PROCEDURES Final Result * (ABNORMAL) POCT glucose (09/25/2024 12:11 AM ATMOSPHERIC CHEMIST) Glucose, POC 390(H) 70 - 199 mg/dL Comment:Glu2: RN/MD Notified Glucose comment 1 Glu2: RN/MD Notified [facility] Blood 09/25/2024 12:1 1 AM ATMOSPHERIC CHEMIST 09/25/2024 12:11 AM ATMOSPHERIC CHEMIST Stuart Flores MD LAB POCT ORDERABLES - DEVICE Fin al Result Performing Organization Address [facility] de Phone Number [facility] [place] [address] * (ABNORMAL) Troponin I high-sensitivity 6-hour (09/24/2024 11:56 PM ATMOSPHERIC CHEMIST) Trop I hs 57(H) <=17 ng/L Comment: Interpretive Data For further [facility] resources including the diagnostic algorithm and an aid in interpretation, copy and paste this link: https://bjhlab.testcatalog.org/show/hsTrop-1 Current Interpretive Data last revised 2020. Trop I hs delta See Comment ng/L [facility] Comment:Inappropriate collec tion time to report a delta. Trop I hs pct delta See Comment % [facility] Comment:Inappropriate collec tion time to report a delta. Trop I hs interp See Comment [facility] Comment:Inappropriate collec tion time to report a delta. Blood 09/24/2024 11:5 6 PM ATMOSPHERIC CHEMIST 09/25/2024 12:10 AM ATMOSPHERIC CHEMIST Britany Knight MD LAB BLOOD ORDERABLES Final Res ult Performing Organization Address [facility]/State/ZIP Co de Phone Number [facility] [place] [address] * (ABNORMAL) eGFR (09/24/2024 11:56 PM ATMOSPHERIC CHEMIST) Pathologist [facility] eGFR 13(L) >=60 mL/min/1. 73 m2 Comment: Interpretive Data [...] interpretive data was last reviewed 2021. Blood 09/24/2024 11:5 6 PM ATMOSPHERIC CHEMIST 09/25/2024 12:21 AM ATMOSPHERIC CHEMIST us Najma Pires MD LAB BLOOD ORDERABLES Final Result [facility] [place] [address] * (ABNORMAL) Differential, auto (09/24/2024 11:56 PM ATMOSPHERIC CHEMIST) Pathologist [facility] Neutrophil abs 12.8(H) 1.5 - 6.5 K/cumm Imm gran abs 0.1 0.0 - 0.1 K/cumm [facility] Lymphocyte abs 0.9 0.8 - 3.3 K/cumm [facility] Monocyte abs 1.2(H) 0.2 - 0.8 K/cumm [facility] Eosinophil abs 0.1 0.0 - 0.5 K/cumm [facility] Basophil abs 0.0 0.0 - 0.1 K/cumm [facility] Neutrophil pct 84.6 % [facility] Comment: Interpretive Data Percent cell count reference ranges are not reported, since discordance with absolute values may lead to misinterpretation of CBC data. Current Interpretive Data was last revised on 2017. Imm gran pct 0.5 % [facility] Comment: Interpretive Data Percent cell count reference ranges are not reported, since discordance with absolute values may lead to misinterpretation of CBC data. Current Interpretive Data was last revised on 2017. Lymphocyte pct 6.1 % [facility] Comment: Interpretive Data Percent cell count reference ranges are not reported, since discordance with absolute values may lead to misinterpretation of CBC data. Current Interpretive Data was last revised on 2017. Monocyte pct 7.6 % [facility] Comment: Interpretive Data Percent cell count reference ranges are not reported, since discordance with absolute values may lead to misinterpretation of CBC data. Current Interpretive Data was last revised on 2017. Eosinophil pct 0.9 % [facility] Comment: Interpretive Data Percent cell count reference ranges are not reported, since discordance with absolute values may lead to misinterpretation of CBC data. Current Interpretive Data was last revised on 2017. Basophil pct 0.3 % [facility] Comment: Interpretive Data Percent cell count reference ranges are not reported, since discordance with absolute values may lead to misinterpretation of CBC data. Current Interpretive Data was last revised on 2017. Blood 09/24/2024 11:5 6 PM ATMOSPHERIC CHEMIST 09/25/2024 12:10 AM ATMOSPHERIC CHEMIST us Najma Pires MD LAB BLOOD ORDERABLES Final Result [facility] [place] [address] * (ABNORMAL) CBC with auto differential (09/24/2024 11:56 PM ATMOSPHERIC CHEMIST) WBC 15.1(H) 3.8 - 9.9 K/cumm Hgb 15.3 11.9 - 15.5 g/dL [facility] Hct 42.8 35.6 - 45.5 % [facility] Plt 93(L) 150 - 400 K/cumm [facility] MPV 12.4(H) 9.1 - 12.3 fL [facility] RBC 4.80 3.90 - 5.20 M/cumm [facility] MCV 89.2 81.3 - 96.4 fL [facility] MCH 31.9 27.1 - 33.3 pg [facility] MCHC 35.7 32.3 - 35.7 g/dL [facility] RDW CV 14.4 11.1 - 14.9 % [facility] RDW SD 46.5 35.7 - 48.1 fL [facility] NRBC abs 0.00 0.00 - 0.01 K/cumm [facility] Blood 09/24/2024 11:5 6 PM ATMOSPHERIC CHEMIST 09/25/2024 12:10 AM ATMOSPHERIC CHEMIST us Najma Pires MD LAB BLOOD ORDERABLES Final Result [facility] [place] [address] * [id number], Tumor Marker (09/24/2024 11:56 PM ATMOSPHERIC CHEMIST) alpha Fetoprotein <2.0 <=8.3 ng/mL Comment: Interpretive Data The Becki [...] >1 year 0.0 8.3 ng/ml References Sudhakar Cavazos et al. J. Ped Surg 1978;13:155-156 Bertram S. et al. Clin Chem Lab Med 2018;57:783-797 Katya House et al. Clin Chem 2014;4111-0781. Current interpretive data was last revised 2022. Blood 09/24/2024 11:5 6 PM ATMOSPHERIC CHEMIST 09/25/2024 12:09 AM ATMOSPHERIC CHEMIST Najma Pires MD LAB BLOOD ORDERABLES Final Result Performing Organization Address [facility] de Phone Number [facility] [place] [address] * (ABNORMAL) Protime-INR (09/24/2024 11:56 PM ATMOSPHERIC CHEMIST) PT 14.3(H) 9.7 - 13.0 sec INR 1.32(H) 0.90 - 1.20 [facility] Comment: Interpretive data Oral anticoagulant therapeutic ranges: Venous thromboembolism prophylaxis or treatment: 2.0-3.0 CARDIOLOGY Standard range: 2.0-3.0 High-intensity range: 2.5-3.5 Refer to indication-specific guidelines for appropriate target ranges for prosthetic heart valve replacement. Current interpretive data was last revised on 2019. Blood 09/24/2024 11:5 6 PM ATMOSPHERIC CHEMIST 09/25/2024 12:15 AM ATMOSPHERIC CHEMIST us Stuart Flores MD LAB BLOOD ORDERABLES Final Resul t Performing Organization Address [facility] de Phone Number [facility] [place] [address] * (ABNORMAL) Phosphorus (09/24/2024 11:56 PM ATMOSPHERIC CHEMIST) Phosphorus, pl 6.9(H) 2.3 - 4.5 mg/dL Blood 09/24/2024 11:5 6 PM ATMOSPHERIC CHEMIST 09/25/2024 12:07 AM ATMOSPHERIC CHEMIST Najma Pires MD LAB BLOOD ORDERABLES Final Result Performing Organization Address [facility]/State/ZIP Co de Phone Number [facility] [place] [address] * Magnesium (09/24/2024 11:56 PM ATMOSPHERIC CHEMIST) Pathologist [facility] Magnesium 2.4 1.4 - 2.5 mg/dL Blood 09/24/2024 11:5 6 PM ATMOSPHERIC CHEMIST 09/25/2024 12:21 AM ATMOSPHERIC CHEMIST Stuart Flores MD LAB BLOOD ORDERABLES Final Resul t [facility] [place] [address] * (ABNORMAL) Comprehensive metabolic panel (09/24/2024 11:56 PM ATMOSPHERIC CHEMIST) [facility] Sodium 136 135 - 145 mmol/L Potassium, pl 3.5 3.3 - 4.9 mmol/L [facility] Chloride 92(L) 97 - 110 mmol/L [facility] CO2 25 22 - 32 mmol/L [facility] Anion gap 19(H) 2 - 15 mmol/L [facility] BUN 77(H) 6 - 25 mg/dL [facility] Creatinine 3.63(H) 0.60 - 1.10 mg/dL [facility] Glucose 410(H) 70 - 199 mg/dL [facility] Comment: Interpretive Data Fasting glucose [...] interpretive data was last revised 2022. Calcium 10.6(H) 8.5 - 10.3 mg/dL [facility] Bilirubin, total 2.3(H) 0.1 - 1.2 mg/dL [facility] Protein, pl 7.0 6.5 - 8.5 g/dL [facility] Albumin 3.3(L) 3.5 - 5.0 g/dL [facility] Alk phos 122 40 - 130 Units/L [facility] ALT 21 7 - 45 Units/L [facility] AST 47(H) 10 - 45 Units/L [facility] Blood 09/24/2024 11:5 6 PM ATMOSPHERIC CHEMIST 09/25/2024 12:07 AM ATMOSPHERIC CHEMIST Najma Pires MD LAB BLOOD ORDERABLES Final Result Performing Organization Address [facility]/ZIP Co de Phone Number [facility] [place] [address] * (ABNORMAL) Sepsis Lactate w/ Reflex (09/24/2024 11:55 PM ATMOSPHERIC CHEMIST) Sepsis Lactate 5.1(C) 0.7 - 2.0 mmol/L Blood 09/24/2024 11:5 5 PM ATMOSPHERIC CHEMIST 09/25/2024 12:16 AM ATMOSPHERIC CHEMIST Britany Knight MD LAB BLOOD ORDERABLES Final Res ult Performing Organization Address [facility] de Phone Number [facility] Department [place] [address] * Critical Result Callback Chemistry (09/24/2024 11:55 PM ATMOSPHERIC CHEMIST) Date Notified [id number] Time Notified 38 [facility] TestName Sepsis Lactate CHARISSA [facility] Called/Read Back Katia CARRINGTON [facility] Credentials RN CHARISSA [facility] Called By SHASTA CARRINGTON [facility] Blood 09/24/2024 11:5 5 PM ATMOSPHERIC CHEMIST 09/25/2024 12:16 AM ATMOSPHERIC CHEMIST Britany Knight MD LAB BLOOD ORDERABLES Final Res ult Performing Organization Address [facility]/ZIP Co de Phone Number [facility] Department [place] [address] * (ABNORMAL) POCT glucose (09/24/2024 11:08 PM ATMOSPHERIC CHEMIST) Glucose, POC 363(H) 70 - 199 mg/dL Blood 09/24/2024 11:0 8 PM ATMOSPHERIC CHEMIST 09/24/2024 11:08 PM ATMOSPHERIC CHEMIST us Stuart Flores MD LAB POCT ORDERABLES - DEVICE Fin al Result [facility] Department [place] [address] * XR Chest 1 View (09/24/2024 11:02 PM ATMOSPHERIC CHEMIST) Anatomical Region Laterality Modality Body, Chest N/A Computed Radiogr aphy 09/25/2024 10:0 6 AM ATMOSPHERIC CHEMIST Impressions 09/25/2024 10:06 AM ATMOSPHERIC CHEMIST Comparison is made to prior from 09/24/2024. Nasogastric tube terminates below the diaphragms. Heart size is normal. Lungs are clear. No pleural effusion or pneumothorax. Electronically signed by: Louie Lynne M.D. Narrative 09/25/2024 10:06 AM ATMOSPHERIC CHEMIST EXAMINATION: 1 view chest radiograph Procedure Note Louie Lynne MD - 09/25/2024 EXAMINATION: 1 view chest radiograph IMPRESSION: Comparison is made to prior from 09/24/2024. Nasogastric tube terminates below the diaphragms. Heart size is normal. Lungs are clear. No pleural effusion or pneumothorax. Electronically signed by: Louie Lynne M.D. us Stuart Flores MD IMG XR PROCEDURES Final Result * US Liver Doppler Complete (09/24/2024 9:07 PM ATMOSPHERIC CHEMIST) Anatomical Region Laterality Modality Vascular N/A Ultrasound 09/25/2024 8:56 AM ATMOSPHERIC CHEMIST Impressions 09/25/2024 12:48 PM ATMOSPHERIC CHEMIST 1. Reversed flow within the portosystemic confluence, compatible with portal hypertension in the setting of cirrhosis. Visualized portal and hepatic veins and hepatic arteries otherwise demonstrate antegrade flow, noting that the left hemiliver (including the left portal and hepatic veins) are not well-seen on this examination. 2. Cholelithiasis, better characterized on comparison examination. Dictated by: Vianey Rodney M.D. The radiology attending physician has personally reviewed this study, and had reviewed and/or edited this written report and agrees with it. Electronically signed by: Juan Morris M.D. Narrative 09/25/2024 12:48 PM ATMOSPHERIC CHEMIST EXAMINATION: US LIVER DOPPLER COMPLETE HISTORY: 63 old female, LYONS cirrhosis, currently under evaluation for transplant. COMPARISON: CT Body, 06/08/2024 and MRI Abdomen dated 04/15/2024. FINDINGS: Color Doppler and spectral analysis were used to evaluate the hepatic vasculature. Portal veins: The main portal vein as well as the right branch have hepatopetal (antegrade) flow. No thrombosis is visualized. The left portal vein is obscured on this examination. Hepatic veins: The middle and right hepatic veins are patent with antegrade flow. The left hepatic vein is obscured on this examination. Portosplenic confluence: The portosplenic confluence is enlarged, with reversed directional flow. IVC: The inferior vena cava at the level of the liver is patent with appropriate directional flow. Hepatic artery: The visualized main hepatic artery is patent with antegrade flow. Common bile duct: Normal caliber of the common bile duct, measuring up to 5 mm. No ascites is visualized. Other: Umbilical and coronary veins obscured on this examination. Cystic structure of the right hemiliver, which measures 4.0 x 4.7 x 4.1 cm. Cholelithiasis, better characterized on comparison examination. Procedure Note Juan Morris MD - 09/25/2024 EXAMINATION: US LIVER DOPPLER COMPLETE HISTORY: 63 old female, LYONS cirrhosis, currently under evaluation for transplant. COMPARISON: CT Body, 06/08/2024 and MRI Abdomen dated 04/15/2024. FINDINGS: Color Doppler and spectral analysis were used to evaluate the hepatic vasculature. Portal veins: The main portal vein as well as the right branch have hepatopetal (antegrade) flow. No thrombosis is visualized. The left portal vein is obscured on this examination. Hepatic veins: The middle and right hepatic veins are patent with antegrade flow. The left hepatic vein is obscured on this examination. Portosplenic confluence: The portosplenic confluence is enlarged, with reversed directional flow. IVC: The inferior vena cava at the level of the liver is patent with appropriate directional flow. Hepatic artery: The visualized main hepatic artery is patent with antegrade flow. Common bile duct: Normal caliber of the common bile duct, measuring up to 5 mm. No ascites is visualized. Other: Umbilical and coronary veins obscured on this examination. Cystic structure of the right hemiliver, which measures 4.0 x 4.7 x 4.1 cm. Cholelithiasis, better characterized on comparison examination. IMPRESSION: 1. Reversed flow within the portosystemic confluence, compatible with portal hypertension in the setting of cirrhosis. Visualized portal and hepatic veins and hepatic arteries otherwise demonstrate antegrade flow, noting that the left hemiliver (including the left portal and hepatic veins) are not well-seen on this examination. 2. Cholelithiasis, better characterized on comparison examination. Dictated by: Vianey Rodney M.D. The radiology attending physician has personally reviewed this study, and had reviewed and/or edited this written report and agrees with it. Electronically signed by: Juan Morris M.D. us Stuart Flores MD IMG US PROCEDURES Final Result * (ABNORMAL) POCT glucose (09/24/2024 8:08 PM ATMOSPHERIC CHEMIST) [facility] Signature Glucose, POC 384(H) 70 - 199 mg/dL Comment:Glu2: RN/ Notified Glucose comment 1 Glu2: RN/ Notified CHARISSA SAHNI Blood 09/24/2024 8:08 PM ATMOSPHERIC CHEMIST 09/24/2024 8:08 PM ATMOSPHERIC CHEMIST us Stuart Flores MD LAB POCT ORDERABLES - DEVICE Fin al Result [facility] Department [place] [address] * HI CRITICAL CARE ILL/INJURED PATIENT INIT 30-74 MIN (09/24/2024 4:23 PM ATMOSPHERIC CHEMIST) Narrative Paxton Hawk MD - 09/24/2024 4:23 PM ATMOSPHERIC CHEMIST Paxton Hawk MD 09/24/2024 4:25 PM Critical Care Performed by: Paxton Hawk MD Authorized by: Peter Lanza MD PhD Critical care provider statement: As reflected in the history, physical exam, orders, notes, and/or MDM, I was personally present while the patient was critically ill and provided critical care services for 32 minutes, excluding time involved in separately billable procedures. Critical care was necessary to treat or prevent imminent or life-threatening deterioration of the following condition(s): acute delirium and severe neurologic condition lactic acidosis and severe metabolic condition Critical care was time spent by me providing the following: continuous telemetry, continuous pulse oximetry, continuous capnography, interpretation of bedside monitors, imaging, and arterial/venous lab draws, serial bedside patient exams and resuscitation with fluids frequent neurologic exams I provided emergent necessary critical care medicine services to this patient. I ordered and reviewed test results and/or imaging studies. I spent time discussing the management of this critically ill patient with consultants and the medical staff. I spent time discussing the management and therapeutic options for this critically ill patient with the patient themselves or with the appropriate designated surrogate decision-maker. I spent time documenting in the medical record. us Peter Lanza MD PhD IN CLINIC/BEDSIDE ORDER [place] Final Result * (ABNORMAL) Sepsis Lactate w/ Reflex (09/24/2024 2:37 PM ATMOSPHERIC CHEMIST) Sepsis Lactate 4.1(C) 0.7 - 2.0 mmol/L Comment:reviewed Blood 09/24/2024 2:37 PM ATMOSPHERIC CHEMIST 09/24/2024 2:44 PM ATMOSPHERIC CHEMIST us Britany Knight MD LAB BLOOD ORDERABLES Final Res ult [facility] Department [place] [address] * Critical Result Callback Chemistry (09/24/2024 2:37 PM ATMOSPHERIC CHEMIST) Date Notified 20240924 Time Notified 1451 [facility]SA [facility] TestName Sepsis Lactate CHARISSA [facility] Called/Read Back Britany Knight [facility] Credentials RN CHARISSA [facility] Called By ra CARRINGTON [facility] Blood 09/24/2024 2:37 PM ATMOSPHERIC CHEMIST 09/24/2024 2:44 PM ATMOSPHERIC CHEMIST Britany Knight MD LAB BLOOD ORDERABLES Final Res ult Performing Organization Address City/[facility]/[place] [address] * (ABNORMAL) Troponin I high-sensitivity 2-hour (09/24/2024 2:36 PM ATMOSPHERIC CHEMIST) Trop I hs 26(H) <=17 ng/L Comment: Interpretive Data For further hscTnI resources including the diagnostic algorithm and an aid in interpretation, copy and paste this link: https://bjhlab.testcatalog.org/show/hsTrop-1 Current Interpretive Data last revised 2020. Trop I hs delta 2 ng/L [facility] Trop I hs interp Insignificant [facility] Blood 09/24/2024 2:36 PM ATMOSPHERIC CHEMIST 09/24/2024 3:01 PM ATMOSPHERIC CHEMIST us Britany Knight MD LAB BLOOD [place] [address] * Blood culture Blood (09/24/2024 2:36 PM ATMOSPHERIC CHEMIST) Report Final Report: No growth Blood 09/24/2024 2:36 PM ATMOSPHERIC CHEMIST 09/24/2024 2:44 PM ATMOSPHERIC CHEMIST [facility]ative [facility] - 09/29/2024 3:10 PM ATMOSPHERIC CHEMIST Collection->Peripheral 1. Blood cultures are incubated for 4 days on a continuously monitored blood culture system. The first report of a negative culture is issued within 24 hours of receipt of the specimen in the laboratory. 2. Positive culture results are reported as soon as they are detected. 3. The most important factor for detection of microbes in the setting of bloodstream infection is the volume of blood submitted for culture. Failure to collect an optimal blood volume can result in false negative blood cultures. 4. For pediatric patients, the recommended blood volume to collect follows a weight based strategy. See the electronic test catalog for collection instructions. 5. For positive blood cultures, a rapid molecular test may be performed for organism identification using the suze ePlex blood culture identification panel for gram positive (BCID-GP) and gram negative (BCID-GN) organisms. This nucleic acid amplification test detects microbial DNA in positive blood culture broth. This assay has been cleared by the [place] Food and Drug Administration and its performance characteristics have been verified by the [facility] Microbiology Laboratory. For questions about this culture, contact the Microbiology Laboratory at [phone]. Interpretive data was last revised on 24. Britany Knight MD LAB MICROBIOLOGY - GENERAL ORD ERABLES Final Result [facility] Department [place] [address] * Respiratory pathogen panel Nasopharyngeal (09/24/2024 1:39 PM ATMOSPHERIC CHEMIST) Pathologist [facility] Influenza A RNA Not Detected Not Detected Influenza B RNA Not Detected Not Detected [facility] RSV RNA Not Detected Not Detected [facility] COVID-19 RNA Not Detected Not Detected [facility] Coronavirus 229E RNA Not Detected Not Detected [facility] Coronavirus HKU1 RNA Not Detected Not Detected [facility] Coronavirus NL63 RNA Not Detected Not Detected [facility] Coronavirus OC43 RNA Not Detected Not Detected [facility] Adenovirus DNA Not Detected Not Detected [facility] Metapneumovirus RNA Not Detected Not Detected [facility] Rhinovirus/Enterov irus RNA Not Detected Not Detected [facility] Parainfluenza 1 RNA Not Detected Not Detected [facility] Parainfluenza 2 RNA Not Detected Not Detected [facility] Parainfluenza 3 RNA Not Detected Not Detected [facility] Parainfluenza 4 RNA Not Detected Not Detected [facility] B. pertussis DNA Not Detected Not Detected [facility] B. parapertussis DNA Not Detected Not Detected [facility] C. pneumoniae DNA Not Detected Not Detected [facility] M. pneumoniae DNA Not Detected Not Detected [facility] Nasopharyngeal 09/24/2024 1: 39 PM ATMOSPHERIC CHEMIST 09/24/2024 1:49 PM ATMOSPHERIC CHEMIST Narrative [facility] - 09/24/2024 3:12 PM ATMOSPHERIC CHEMIST Is the Patient experiencing symptoms consistent with COVID?->Yes Surveillance testing for transplant patient?->No Interpretive Data The Urbful FilmArray Respiratory Panel (RP2.1) assay is a multiplexed real-time PCR based nucleic acid test capable of simultaneous qualitative detection and identification of multiple respiratory viral and bacterial nucleic acids, including SARS Coronavirus 2 (the causative agent of COVID-19). The following bacteria, viruses and virus subtypes can be identified using the FilmArray RP2.1 assay: Bordetella pertussis, Bordetella parapertussis, Chlamydia pneumoniae, Mycoplasma pneumoniae, Adenovirus, SARS Coronavirus 2, seasonal coronaviruses (Coronavirus HKU1, Coronavirus NL63, Coronavirus 229E, and Coronavirus OC43), Influenza A, Influenza A subtype H1, Influenza A subtype H3, Influenza A subtype 2009 H1, Influenza B, Metapneumovirus, Parainfluenza 1, Parainfluenza 2, Parainfluenza 3, Parainfluenza 4, RSV, Rhinovirus/Enterovirus. Due to the genetic similarity between human Rhinovirus and Enterovirus, the FilmArray RP2.1 assay cannot reliably differentiate them. Coronavirus OC43 may cross-react with some isolates of Coronavirus HKU1. A dual positive result may be due to cross-reactivity or may indicate a co- infection. The detection and identification of specific viral and bacterial nucleic acids from individuals exhibiting signs and symptoms of a respiratory infection aids in the diagnosis of respiratory infection if used in conjunction with other clinical and epidemiological information. The results of this test should not be used as the sole basis for diagnosis, treatment, or other management decisions. Negative results in the setting of a respiratory illness may be due to infection with pathogens that are not detected by this test. Positive results do not rule out infection/co-infection with other organisms. The agent(s) detected by the FilmArray RP2.1 may not be the definite cause of disease. Additional testing (lab, imaging, etc.) may be necessary when evaluating a patient with possible respiratory tract infection. The FilmArray RP2.1 assay has FDA clearance for testing of PRODUCTIVITY ENGINEER swabs. The performance of additional specimen types has been assessed by the performing laboratory. The performance characteristics of this assay have been determined by [facility] Molecular Infectious Disease Laboratory. Current interpretive data was last revised on 22. Britany Knight MD LAB MICROBIOLOGY - GENERAL ORD ERABLES Final Result [facility] Department [place] [address] * Blood culture Blood (09/24/2024 1:39 PM ATMOSPHERIC CHEMIST) Report Final Report: No growth Blood 09/24/2024 1:39 PM ATMOSPHERIC CHEMIST 09/24/2024 1:50 PM ATMOSPHERIC CHEMIST [facility] - 09/29/2024 3:05 PM ATMOSPHERIC CHEMIST Collection->Peripheral 1. Blood cultures are incubated for 4 days on a continuously monitored blood culture system. The first report of a negative culture is issued within 24 hours of receipt of the specimen in the laboratory. 2. Positive culture results are reported as soon as they are detected. 3. The most important factor for detection of microbes in the setting of bloodstream infection is the volume of blood submitted for culture. Failure to collect an optimal blood volume can result in false negative blood cultures. 4. For pediatric patients, the recommended blood volume to collect follows a weight based strategy. See the electronic test catalog for collection instructions. 5. For positive blood cultures, a rapid molecular test may be performed for organism identification using the suze ePlex blood culture identification panel for gram positive (BCID-GP) and gram negative (BCID-GN) organisms. This nucleic acid amplification test detects microbial DNA in positive blood culture broth. This assay has been cleared by the [place] Food and Drug Administration and its performance characteristics have been verified by the [facility] Microbiology Laboratory. For questions about this culture, contact the Microbiology Laboratory at [phone]. Interpretive data was last revised on 24. Britany Knight MD LAB MICROBIOLOGY - GENERAL ORD ERABLES Final Result [facility] [place] [address] * XR Chest 1 Vw Portable (09/24/2024 12:59 PM ATMOSPHERIC CHEMIST) Anatomical Region Laterality Modality Body, Chest N/A Computed Radiogr aphy 09/24/2024 1:05 PM ATMOSPHERIC CHEMIST Impressions 09/24/2024 1:05 PM ATMOSPHERIC CHEMIST Comparison April 2024. Small lung volumes with mild scattered atelectasis throughout the lung. Given some limitations of portable technique, No focal consolidation suspicious for pneumonia. No pulmonary edema, pleural effusion, or pneumothorax. The heart and mediastinal contours are unchanged. Electronically signed by: Mohinder Ferro M.D. Narrative 09/24/2024 1:05 PM ATMOSPHERIC CHEMIST EXAMINATION: 1 view chest radiograph Procedure Note Mohinder Ferro MD - 09/24/2024 EXAMINATION: 1 view chest radiograph IMPRESSION: Comparison April 2024. Small lung volumes with mild scattered atelectasis throughout the lung. Given some limitations of portable technique, No focal consolidation suspicious for pneumonia. No pulmonary edema, pleural effusion, or pneumothorax. The heart and mediastinal contours are unchanged. Electronically signed by: Mohinder Ferro M.D. Britany Knight MD IMG XR PROCEDURES Final Result * POCT ketone, blood (09/24/2024 12:40 PM ATMOSPHERIC CHEMIST) Ketones, Blood, POC 0.4 0.0 - 0.5 mmol/L Blood 09/24/2024 12:4 0 PM ATMOSPHERIC CHEMIST 09/24/2024 12:40 PM ATMOSPHERIC CHEMIST Stuart Flores MD LAB POCT ORDERABLES - DEVICE Fin al Result Performing Organization Address [facility] Co de Phone Number [facility] [place] [place] [address] * (ABNORMAL) POCT glucose (09/24/2024 12:37 PM ATMOSPHERIC CHEMIST) Pathologist [facility] [place] Glucose, POC 329(H) 70 - 199 mg/dL Blood 09/24/2024 12:3 7 PM ATMOSPHERIC CHEMIST 09/24/2024 12:37 PM ATMOSPHERIC CHEMIST Louie Malone MD LAB POCT ORDERABLES - DEVICE Final Result Performing Organization Address [facility] [place] [address] * (ABNORMAL) Troponin I high-sensitivity series (baseline, 2hr, 4hr, 6hr) (09/24/2024 12:35 PM ATMOSPHERIC CHEMIST) Pathologist [facility] Trop I hs 24(H) <=17 ng/L Comment: Interpretive Data For further hscTnI resources including the diagnostic algorithm and an aid in interpretation, copy and paste this link: https://bjhlab.testcatalog.org/show/hsTrop-1 Current Interpretive Data last revised 2020. Blood 09/24/2024 12:3 5 PM ATMOSPHERIC CHEMIST 09/24/2024 12:59 PM ATMOSPHERIC CHEMIST Britany Knight MD LAB BLOOD ORDERABLES Final Res ult Performing Organization Address [facility] Co de Phone Number [facility] [place] [address] * (ABNORMAL) Sepsis Lactate w/ Reflex (09/24/2024 12:35 PM ATMOSPHERIC CHEMIST) Pathologist [facility] Sepsis Lactate 4.4(C) 0.7 - 2.0 mmol/L Blood 09/24/2024 12:3 5 PM ATMOSPHERIC CHEMIST 09/24/2024 12:48 PM ATMOSPHERIC CHEMIST Britany Knight MD LAB BLOOD ORDERABLES Final Res ult Performing Organization Address City/[facility] Co de Phone Number [facility] [place] [address] * (ABNORMAL) eGFR (09/24/2024 12:35 PM ATMOSPHERIC CHEMIST) eGFR 18(L) >=60 mL/min/1. 73 m2 Comment: Interpretive Data [...] interpretive data was last reviewed 2021. Blood 09/24/2024 12:3 5 PM ATMOSPHERIC CHEMIST 09/24/2024 12:59 PM ATMOSPHERIC CHEMIST Britany Knight MD LAB BLOOD ORDERABLES Final Res ult Performing Organization Address City/[facility]/ZIP Co de Phone Number [facility] [place] [address] * Differential, auto (09/24/2024 12:35 PM ATMOSPHERIC CHEMIST) Neutrophil abs 5.4 1.5 - 6.5 K/cumm Imm gran abs 0.0 0.0 - 0.1 K/cumm [facility] Lymphocyte abs 0.9 0.8 - 3.3 K/cumm [facility] Monocyte abs 0.6 0.2 - 0.8 K/cumm [facility] Eosinophil abs 0.2 0.0 - 0.5 K/cumm [facility] Basophil abs 0.0 0.0 - 0.1 K/cumm [facility] Neutrophil pct 74.8 % [facility] Comment: Interpretive Data Percent cell count reference ranges are not reported, since discordance with absolute values may lead to misinterpretation of CBC data. Current Interpretive Data was last revised on 2017. Imm gran pct 0.6 % [facility] Comment: Interpretive Data Percent cell count reference ranges are not reported, since discordance with absolute values may lead to misinterpretation of CBC data. Current Interpretive Data was last revised on 2017. Lymphocyte pct 12.7 % [facility] Comment: Interpretive Data Percent cell count reference ranges are not reported, since discordance with absolute values may lead to misinterpretation of CBC data. Current Interpretive Data was last revised on 2017. Monocyte pct 8.7 % [facility] Comment: Interpretive Data Percent cell count reference ranges are not reported, since discordance with absolute values may lead to misinterpretation of CBC data. Current Interpretive Data was last revised on 2017. Eosinophil pct 2.9 % [facility] Comment: Interpretive Data Percent cell count reference ranges are not reported, since discordance with absolute values may lead to misinterpretation of CBC data. Current Interpretive Data was last revised on 2017. Basophil pct 0.3 % [facility] Comment: Interpretive Data Percent cell count reference ranges are not reported, since discordance with absolute values may lead to misinterpretation of CBC data. Current Interpretive Data was last revised on 2017. Blood 09/24/2024 12:3 5 PM ATMOSPHERIC CHEMIST 09/24/2024 12:59 PM ATMOSPHERIC CHEMIST us Britany Knight MD LAB BLOOD ORDERABLES Final Res ult [facility] Department [place] [address] * Critical Result Callback Chemistry (09/24/2024 12:35 PM ATMOSPHERIC CHEMIST) [facility] Date Notified [id number] Time Notified 1253 [facility] TestName Sepsis Lactate [facility] Called/Read Back Lauren Rand [facility] Credentials RN [facility] Called By kati [facility] Blood 09/24/2024 12:3 5 PM ATMOSPHERIC CHEMIST 09/24/2024 12:48 PM ATMOSPHERIC CHEMIST us Britany Knight MD LAB BLOOD ORDERABLES Final Res ult [facility] Department [place] [address] * (ABNORMAL) CBC with auto differential (09/24/2024 12:35 PM ATMOSPHERIC CHEMIST) [facility] WBC 7.2 3.8 - 9.9 K/cumm Hgb 14.7 11.9 - 15.5 g/dL [facility] Hct 42.0 35.6 - 45.5 % [facility] Plt 101(L) 150 - 400 K/cumm [facility] MPV 12.0 9.1 - 12.3 fL [facility] RBC 4.72 3.90 - 5.20 M/cumm [facility] MCV 89.0 81.3 - 96.4 fL [facility] MCH 31.1 27.1 - 33.3 pg [facility] MCHC 35.0 32.3 - 35.7 g/dL [facility] RDW CV 14.5 11.1 - 14.9 % [facility] RDW SD 46.3 35.7 - 48.1 fL [facility] NRBC abs 0.00 0.00 - 0.01 K/cumm [facility] Blood 09/24/2024 12:3 5 PM ATMOSPHERIC CHEMIST 09/24/2024 12:59 PM ATMOSPHERIC CHEMIST Result [facility] Britany Knight MD LAB BLOOD ORDERABLES Final Res ult Performing Organization Address [facility] de Phone Number [facility] [place] [address] * aPTT (09/24/2024 12:35 PM ATMOSPHERIC CHEMIST) aPTT 33 28 - 38 sec Comment: Interpretive Data Heparin therapeutic range: 66.0 - 100.0 seconds. Range based on correlation with therapeutic heparin activity range of 0.3 - 0.7 Units/mL. Current interpretive data was last revised on 2023. Blood 09/24/2024 12:3 5 PM ATMOSPHERIC CHEMIST 09/24/2024 12:52 PM ATMOSPHERIC CHEMIST Result [facility] Britany Knight MD LAB BLOOD ORDERABLES Final Res ult Performing Organization Address [facility] de Phone Number [facility] [place] [address] * (ABNORMAL) Protime-INR (09/24/2024 12:35 PM ATMOSPHERIC CHEMIST) PT 14.1(H) 9.7 - 13.0 sec INR 1.30(H) 0.90 - 1.20 [facility] Comment: Interpretive data Oral anticoagulant therapeutic ranges: Venous thromboembolism prophylaxis or treatment: 2.0-3.0 CARDIOLOGY Standard range: 2.0-3.0 High-intensity range: 2.5-3.5 Refer to indication-specific guidelines for appropriate target ranges for prosthetic heart valve replacement. Current interpretive data was last revised on 2019. Blood 09/24/2024 12:3 5 PM ATMOSPHERIC CHEMIST 09/24/2024 12:52 PM ATMOSPHERIC CHEMIST Result [facility] Britany Knight MD LAB BLOOD ORDERABLES Final Res ult Performing Organization Address [facility] de Phone Number [facility] [place] [address] * Type and screen (09/24/2024 12:35 PM ATMOSPHERIC CHEMIST) Rosemarie, indirect Negative ABO Rh A Positive [facility] Blood 09/24/2024 12:3 5 PM ATMOSPHERIC CHEMIST 09/24/2024 1:15 PM ATMOSPHERIC CHEMIST Narrative [facility] - 09/24/2024 2:15 PM ATMOSPHERIC CHEMIST Has the patient had Daratumumab or Isatuximab in the past 6 months?->Unknown Britany Knight MD LAB BLOOD BANK TEST ORDERABLES Final Result Performing Organization Address [facility] Co de Phone Number [facility] [place] [address] * Blood gas, venous (09/24/2024 12:35 PM ATMOSPHERIC CHEMIST) pH, Venous 7.39 7.32 - 7.43 PCO2, Venous 48 40 - 50 mmHg [facility] PO2, Venous 37 mmHg [facility] Comment: Interpretive Data No Reference Range Established Current Interpretive Data was last revised on 2017. HCO3 Venous, Calculated 30 20 - 30 mmol/L [facility] BE, venous 3 mmol/L [facility] Comment: Interpretive Data No Reference Range Established Current Interpretive Data was last revised on 2017. Blood 09/24/2024 12:3 5 PM ATMOSPHERIC CHEMIST 09/24/2024 12:48 PM ATMOSPHERIC CHEMIST Britany Knight MD LAB BLOOD ORDERABLES Final Res ult Performing Organization Address [facility]/ZIP Co de Phone Number [facility] [place] [address] * (ABNORMAL) Ammonia (09/24/2024 12:35 PM ATMOSPHERIC CHEMIST) Ammonia 95(H) <=50 mcmol/L Blood 09/24/2024 12:3 5 PM ATMOSPHERIC CHEMIST 09/24/2024 12:52 PM ATMOSPHERIC CHEMIST Britany Knight MD LAB BLOOD ORDERABLES Final Res ult Performing Organization Address [facility] Co de Phone Number [facility] [place] [address] * (ABNORMAL) Hepatic function panel (09/24/2024 12:35 PM ATMOSPHERIC CHEMIST) Pathologist [facility] Bilirubin, total 3.0(H) 0.1 - 1.2 mg/dL Bilirubin, direct 1.0(H) 0.1 - 0.3 mg/dL [facility] Protein, pl 7.1 6.5 - 8.5 g/dL [facility] Albumin 3.2(L) 3.5 - 5.0 g/dL [facility] Alk phos 118 40 - 130 Units/L [facility] ALT 18 7 - 45 Units/L [facility] AST 53(H) 10 - 45 Units/L [facility] Blood 09/24/2024 12:3 5 PM ATMOSPHERIC CHEMIST 09/24/2024 12:59 PM ATMOSPHERIC CHEMIST Britany Knight MD LAB BLOOD ORDERABLES Final Res ult Performing Organization Address [facility] de Phone Number [facility] [place] [address] * (ABNORMAL) Basic metabolic panel (09/24/2024 12:35 PM ATMOSPHERIC CHEMIST) Pathologist [facility] [place] Sodium 133(L) 135 - 145 mmol/L Potassium, pl 3.5 3.3 - 4.9 mmol/L [facility] Chloride 90(L) 97 - 110 mmol/L [facility] CO2 26 22 - 32 mmol/L [facility] Anion gap 17(H) 2 - 15 mmol/L [facility] BUN 64(H) 6 - 25 mg/dL [facility] Creatinine 2.92(H) 0.60 - 1.10 mg/dL [facility] Glucose 349(H) 70 - 199 mg/dL [facility] Comment: Interpretive Data Fasting glucose [...] interpretive data was last revised 2022. Calcium 11.1(H) 8.5 - 10.3 mg/dL [facility] Blood 09/24/2024 12:3 5 PM ATMOSPHERIC CHEMIST 09/24/2024 12:59 PM ATMOSPHERIC CHEMIST us Britany Knight MD LAB BLOOD ORDERABLES Final Res ult [facility] Department [place] [address] * Neuro CT Outside Consult (09/24/2024 12:33 PM ATMOSPHERIC CHEMIST) Anatomical Region Laterality Modality N/A Computed Tomogra phy 09/24/2024 12:4 7 PM ATMOSPHERIC CHEMIST Impressions 09/24/2024 12:47 PM ATMOSPHERIC CHEMIST No acute intracranial abnormality. The findings and impression are based on the available images, which may not be airline security representative of the entire organ or disease entity. Also note that ultrasound image acquisition is seismometer operator dependent, and that the study was performed outside our facility with no control over image acquisition. In addition, the provided images may or may not represent the [place] source data set and thus may contain changes that may lower the accuracy of this second-opinion interpretation. The findings, conclusions and recommendations within this report do not replace the initial findings, conclusions and recommendations made at the facility where the study was performed based upon the imaging and clinical condition at that time. Comparison with the prior report and clinical history is necessary. Electronically signed by: Anastacio Rivera MD Narrative 09/24/2024 12:47 PM ATMOSPHERIC CHEMIST EXAMINATION: RADIOLOGY CONSULTATION ON OUTSIDE IMAGING STUDY STUDY INITIALLY PERFORMED: 09/24/2024 at [facility]. TYPE OF STUDY: Multiple CT images without intravenous contrast of the head are provided at the time of this interpretation. TYPE OF CONSULTATION: Consult on outside imaging study with images submitted through the outside imaging sharing service. The protocol was sufficient to address the clinical question. The outside report was not available at the time of the consultation. DATE OF CONSULTATION: 09/24/2024 12:37 PM HISTORY: AMS COMPARISON: No priors. FINDINGS: Motion degraded study. There is no acute intracranial hemorrhage. The ventricles are of normal size and morphology. No mass effect or midline shift is present. The gonzalez-white matter differentiation is normal. Periventricular white matter hypoattenuation may reflect underlying chronic small vessel ischemic changes. No acute calvarial fracture seen. Bilateral cataract extractions. The visualized portions of the mastoids are normal. The visualized portions of the paranasal sinuses are normal. Procedure Note Anastacio Rivera MD - 09/24/2024 EXAMINATION: RADIOLOGY CONSULTATION ON OUTSIDE IMAGING STUDY STUDY INITIALLY PERFORMED: 09/24/2024 at [facility]. TYPE OF STUDY: Multiple CT images without intravenous contrast of the head are provided at the time of this interpretation. TYPE OF CONSULTATION: Consult on outside imaging study with images submitted through the outside imaging sharing service. The protocol was sufficient to address the clinical question. The outside report was not available at the time of the consultation. DATE OF CONSULTATION: 09/24/2024 12:37 PM HISTORY: AMS COMPARISON: No priors. FINDINGS: Motion degraded study. There is no acute intracranial hemorrhage. The ventricles are of normal size and morphology. No mass effect or midline shift is present. The gonzalez-white matter differentiation is normal. Periventricular white matter hypoattenuation may reflect underlying chronic small vessel ischemic changes. No acute calvarial fracture seen. Bilateral cataract extractions. The visualized portions of the mastoids are normal. The visualized portions of the paranasal sinuses are normal. IMPRESSION: No acute intracranial abnormality. The findings and impression are based on the available images, which may not be airline security representative of the entire organ or disease entity. Also note that ultrasound image acquisition is seismometer operator dependent, and that the study was performed outside our facility with no control over image acquisition. In addition, the provided images may or may not represent the [place] source data set and thus may contain changes that may lower the accuracy of this second-opinion interpretation. The findings, conclusions and recommendations within this report do not replace the initial findings, conclusions and recommendations made at the facility where the study was performed based upon the imaging and clinical condition at that time. Comparison with the prior report and clinical history is necessary. Electronically signed by: Anastacio Rivera MD Britany Knight MD IMG CT PROCEDURES Final Result * XR Outside Reference (09/24/2024 12:28 PM ATMOSPHERIC CHEMIST) Impressions [facility] - 09/24/2024 12:28 PM ATMOSPHERIC CHEMIST These images are for Reference purposes only and have not been reviewed by [facility]. There will be no report generated by a [facility]. Narrative [facility] - 09/24/2024 12:28 PM ATMOSPHERIC CHEMIST EXAMINATION: Images For Reference Purposes Only Britany Knight MD IMG XR PROCEDURES Final Result Performing Organization Address [facility] de Phone Number [email or web address] * HLA Antibody Screen by PRA or SAB per Schedule (Class I and Class II) (09/21/2024 1:00 PM ATMOSPHERIC CHEMIST) Blood 09/21/2024 1:00 PM ATMOSPHERIC CHEMIST Narrative [facility] - ATMOSPHERIC CHEMIST Sample received in lab. Single Antigen Antibody Screen ordered. Timothy Pardo MD LAB BLOOD ORDERABL ES Final Result Performing Organization Address [facility] de Phone Number [facility] * HLA Antibody Screen - SAB (Class I and Class II) (09/21/2024 1:00 PM ATMOSPHERIC CHEMIST) Class I Treatment EDTA [facility] Class I Dilution 1:1 [facility] Class I Tested Date 09/28/2024 [facility] Class I Result Positive [facility] Class I CPRA 64 [facility] Class I Increased Risk Bw4 [facility] Class I Moderate Risk A23; B51 [facility] Class I Low Risk A24, A25, A29, A32, A68; B8, B13, B27, B38, B44, B45, B47, B49, B51, B52, B53, B55, B57, B58, B59, B60, B63, B67, B77, B78, B81, B82 [facility] Class II Treatment EDTA [facility] Class II Dilution 1:1 [facility] Class II Tested Date 09/28/2024 [facility]OT[facility] Class II Result Positive [facility] Class II CPRA 31 [facility] Class II Moderate Risk DR1; DPB1*01:01 [facility] Class II Low Risk DR1, DR10, DR12, DR52 [facility] 09/21/2024 1:00 PM ATMOSPHERIC CHEMIST 09/29/2024 9:55 AM ATMOSPHERIC CHEMIST Narrative [facility] - 09/29/2024 9:55 AM ATMOSPHERIC CHEMIST Single-antigen HLA antibody screen is performed on serum samples using a method developed and validated by the [facility] HLA laboratory based on an FDA-approved IVD kit (LABScreen Single-Antigen, [employer], [place], [place]). All patient serum samples are pretreated with EDTA before the screen to prevent complement interference. Additional serum treatments, such as adsorption and DTT treatment, may be performed as indicated. Interpretive comments: Low risk: MFI [id number]. Moderate risk: MFI [id number]. Increased risk: MFI >/= 5000. The presence [...] antigens to avoid. Testing performed at the [facility], [facility], [place], [address]. CLIA # [id number]. Rani Smith, Ph.D., Centralized Traffic Control Operator, HLA Laboratory Aurelio Palafox M.D., Ph.D., Manager Sharepoint, HLA Laboratory Norma Talamantes, Ph.D., CLIA Manager Sharepoint, [facility] Clinical Laboratories Current methodology and interpretive comments last revised on 09/06/2022. Timothy Pardo MD LAB BLOOD ORDERABL ES Final Result [facility] * SCAN - LABS (09/07/2024) Provider Scanning Final Result * (ABNORMAL) eGFR (08/27/2024 1:35 PM ATMOSPHERIC CHEMIST) eGFR 31(L) >=60 mL/min/1. 73 m2 Comment: [...] last reviewed 2021. Blood 08/27/2024 1:35 PM ATMOSPHERIC CHEMIST 08/27/2024 1:59 PM ATMOSPHERIC CHEMIST us Taiwo Vázquez MD LAB BLOOD ORDERABLES Fin al Result Performing Organization Address City/[facility]/ZIP Co de Phone Number [facility] Department [place] [address] * (ABNORMAL) Protime-INR (08/27/2024 1:35 PM ATMOSPHERIC CHEMIST) Pathologist [facility] PT 14.1(H) 9.7 - 13.0 sec INR 1.30(H) 0.90 - 1.20 [facility] Comment: Interpretive data Oral anticoagulant therapeutic ranges: Venous thromboembolism prophylaxis or treatment: 2.0-3.0 CARDIOLOGY Standard range: 2.0-3.0 High-intensity range: 2.5-3.5 Refer to indication-specific guidelines for appropriate target ranges for prosthetic heart valve replacement. Current interpretive data was last revised on 2019. Blood 08/27/2024 1:35 PM ATMOSPHERIC CHEMIST 08/27/2024 1:48 PM ATMOSPHERIC CHEMIST us Taiow Vázquez MD LAB BLOOD ORDERABLES Fin al Result Performing Organization Address [facility] Co de Phone Number [facility] Department [place] [address] * (ABNORMAL) Comprehensive metabolic panel (08/27/2024 1:35 PM ATMOSPHERIC CHEMIST) Pathologist [facility] [place] Sodium 136 135 - 145 mmol/L Potassium, pl 3.6 3.3 - 4.9 mmol/L [facility] Chloride 101 97 - 110 mmol/L [facility] CO2 28 22 - 32 mmol/L [facility] Anion gap 7 2 - 15 mmol/L [facility] BUN 29(H) 6 - 25 mg/dL [facility] Creatinine 1.81(H) 0.60 - 1.10 mg/dL [facility] Glucose 293(H) 70 - 199 mg/dL [facility] Comment: Interpretive Data Fasting glucose [...] total 2.4(H) 0.1 - 1.2 mg/dL [facility] Protein, pl 6.1(L) 6.5 - 8.5 g/dL [facility] Albumin 3.0(L) 3.5 - 5.0 g/dL [facility] Alk phos 100 40 - 130 Units/L [facility] ALT 21 7 - 45 Units/L [facility] AST 31 10 - 45 Units/L [facility] Blood 08/27/2024 1:35 PM ATMOSPHERIC CHEMIST 08/27/2024 1:48 PM ATMOSPHERIC CHEMIST us Taiow Vázquez MD LAB BLOOD ORDERABLES Fin al Result [facility] [place] [address] * HLA Antibody Screen by PRA or SAB per Schedule (Class I and Class II) (08/24/2024 10:00 AM ATMOSPHERIC CHEMIST) Blood 08/24/2024 10:0 0 AM ATMOSPHERIC CHEMIST Narrative HISTOTRAC - ATMOSPHERIC CHEMIST Sample received in lab and stored. No testing performed at this time. us Timothy Pardo MD LAB BLOOD ORDERABL ES Final Result [facility] * SCAN - LABS (08/24/2024) us Provider Scanning Final Result * (ABNORMAL) Urinalysis reflex to microscopic and culture Urine (08/06/2024 5:12 PM ATMOSPHERIC CHEMIST) Color, ur Straw Yellow Clarity, ur Clear [...] tendency for uric acid stone formation. Source: [facility] Current Interpretive Data was last revised on [...] performed. [facility] Urine 08/06/2024 5:12 PM ATMOSPHERIC CHEMIST 08/06/2024 5:24 PM ATMOSPHERIC CHEMIST us Taiwo Vázquez MD LAB MICROBIOLOGY - [facility] ORDERABLES Final Result CHARISSA DUNNECH [address] [facility] Department [place] [address] * (ABNORMAL) Urinalysis, microscopic only (08/06/2024 5:12 PM ATMOSPHERIC CHEMIST) WBC, ur 6-10(A) 0 - 5 /HPF RBC, ur 3-5(A) 0 - 2 /HPF [facility] Epithelial cells, squamous, ur 1-5 0 - 5 /HPF [facility] Mucous, ur Present(A) [facility] Hyaline casts, ur 11-20(A) 0 - 10 /LPF CHARISSA ELIAS Culture Reflex Comment Reflex conditions for urine culture (WBC >10) not met. CHARISSA ELIAS Urine 08/06/2024 5:12 PM ATMOSPHERIC CHEMIST 08/06/2024 5:24 PM ATMOSPHERIC CHEMIST Taiwo Vázquez MD LAB URINE ORDERABLES Fin al Result Performing Organization Address [facility] Co de Phone Number CHARISSA DUNNECH [address] [employer] [place], [place] [id number] * (ABNORMAL) eGFR (08/06/2024 5:04 PM ATMOSPHERIC CHEMIST) eGFR 34(L) >=60 mL/min/1. 73 m2 Comment: [...] last reviewed 2021. Blood 08/06/2024 5:04 PM ATMOSPHERIC CHEMIST 08/06/2024 5:24 PM ATMOSPHERIC CHEMIST Taiwo Vázquez MD LAB BLOOD ORDERABLES Fin al Result Performing Organization Address [facility]/ZIP Co de Phone Number CHARISSA DUNNEWCH [address] [employer] [place], [place] [id number] * (ABNORMAL) Differential, auto (08/06/2024 5:04 PM ATMOSPHERIC CHEMIST) Neutrophil abs 2.8 1.5 - 6.5 K/cumm Imm gran abs 0.0 0.0 - 0.1 K/cumm [facility] Lymphocyte abs 1.3 0.8 - 3.3 K/cumm [facility] Monocyte abs 0.5 0.2 - 0.8 K/cumm [facility] Eosinophil abs 0.9(H) 0.0 - 0.5 K/cumm [facility] Basophil abs 0.0 0.0 - 0.1 K/cumm [facility] Neutrophil pct 50.9 % [facility] Comment: Interpretive Data Percent cell count reference ranges are not reported, since discordance with absolute values may lead to misinterpretation of CBC data. Current Interpretive Data was last revised on 2017. Imm gran pct 0.4 % [facility] Comment: Interpretive Data Percent cell count reference ranges are not reported, since discordance with absolute values may lead to misinterpretation of CBC data. Current Interpretive Data was last revised on 2017. Lymphocyte pct 23.9 % [facility] Comment: Interpretive Data Percent cell count reference ranges are not reported, since discordance with absolute values may lead to misinterpretation of CBC data. Current Interpretive Data was last revised on 2017. Monocyte pct 8.2 % [facility] Comment: Interpretive Data Percent cell count reference ranges are not reported, since discordance with absolute values may lead to misinterpretation of CBC data. Current Interpretive Data was last revised on 2017. Eosinophil pct 16.2 % [facility] Comment: Interpretive Data Percent cell count reference ranges are not reported, since discordance with absolute values may lead to misinterpretation of CBC data. Current Interpretive Data was last revised on 2017. Basophil pct 0.4 % [facility] Comment: Interpretive Data Percent cell count reference ranges are not reported, since discordance with absolute values may lead to misinterpretation of CBC data. Current Interpretive Data was last revised on 2017. Blood 08/06/2024 5:04 PM ATMOSPHERIC CHEMIST 08/06/2024 5:24 PM ATMOSPHERIC CHEMIST Taiwo Vázquez MD LAB BLOOD ORDERABLES Fin al Result Performing Organization Address [facility] Co de Phone Number CHARISSA ELIAS [address] [address] [facility] [employer] [place], [place] [id number] * (ABNORMAL) CBC with auto differential (08/06/2024 5:04 PM ATMOSPHERIC CHEMIST) Pathologist [facility] [place] WBC 5.5 3.8 - 9.9 K/cumm Hgb 12.3 11.9 - 15.5 g/dL [facility] Hct 35.1(L) 35.6 - 45.5 % [facility] Plt 77(L) 150 - 400 K/cumm [facility] MPV 11.6 9.1 - 12.3 fL [facility] RBC 3.82(L) 3.90 - 5.20 M/cumm [facility] MCV 91.9 81.3 - 96.4 fL [facility] MCH 32.2 27.1 - 33.3 pg [facility] MCHC 35.0 32.3 - 35.7 g/dL [facility] RDW CV 15.7(H) 11.1 - 14.9 % [facility] RDW SD 52.0(H) 35.7 - 48.1 fL [facility] NRBC abs 0.00 0.00 - 0.01 K/cumm [facility] Blood 08/06/2024 5:04 PM ATMOSPHERIC CHEMIST 08/06/2024 5:24 PM ATMOSPHERIC CHEMIST Taiwo Vázquez MD LAB BLOOD ORDERABLES Fin al Result Performing Organization Address [facility] Co de Phone Number CHARISSA ELIAS [address] [address] [facility] [employer] [place], [place] [id number] * [id number], Tumor Marker (08/06/2024 5:04 PM ATMOSPHERIC CHEMIST) Pathologist [facility] [place] alpha Fetoprotein <1.8 <=8.3 ng/mL Comment: Interpretive [...] et al. J. Ped Surg 1978;13:155-156 Bertram Hrenandez et al. Clin Chem Lab Med 2018;57:783-797 Katya House et al. Clin Chem 2014;5416-6498. Current interpretive data was last revised 2022. Testing performed by: [facility], [address] [place] [address]., [address] Blood 08/06/2024 5:04 PM ATMOSPHERIC CHEMIST 08/06/2024 8:14 PM ATMOSPHERIC CHEMIST Taiwo Vázquez MD LAB BLOOD ORDERABLES Fin al Result CHARISSA DUNNECH [address] [facility] [place] [address] * Blood culture Blood (08/06/2024 5:04 PM ATMOSPHERIC CHEMIST) Report Final Report: No growth Comment:Testing performed by : [facility], [address] [place] [address]., [address] Blood 08/06/2024 5:04 PM ATMOSPHERIC CHEMIST 08/07/2024 12:05 PM ATMOSPHERIC CHEMIST Narrative CHARISSA [facility] - 08/12/2024 1:01 PM ATMOSPHERIC CHEMIST Interpretive Data 1. Blood cultures are incubated and monitored continuously for 5 days (120 hours). The first negative report is issued within 24 hours of receipt in the laboratory. 2. All positive cultures are resulted and called to physicians/care providers as soon as they are detected. 3. A rapid molecular test for organism identification may be performed using the Qivivo Blood Culture Identification panel. This assay detects microbial DNA in a blood culture broth. This assay has been cleared by the [place] Food and Drug Administration and its performance characteristics have been verified by the [facility] Microbiology Laboratory. Interpretive data was last revised on September 13, 2022. Taiwo Vázquez MD LAB MICROBIOLOGY - GENER AL ORDERABLES Final Result Performing Organization Address [facility] Phone Number [facility] [address] [facility] [place] [address] * (ABNORMAL) Protime-INR (08/06/2024 5:04 PM ATMOSPHERIC CHEMIST) PT 14.1(H) 9.7 - 13.0 sec INR 1.30(H) 0.90 - 1.20 CHARISSA ELIAS Comment: Interpretive data Oral anticoagulant therapeutic ranges: Venous thromboembolism prophylaxis or treatment: 2.0-3.0 CARDIOLOGY Standard range: 2.0-3.0 High-intensity range: 2.5-3.5 Refer to indication-specific guidelines for appropriate target ranges for prosthetic heart valve replacement. Current interpretive data was last revised on 2019. Blood 08/06/2024 5:04 PM ATMOSPHERIC CHEMIST 08/06/2024 5:24 PM ATMOSPHERIC CHEMIST Taiwo Vázquez MD LAB BLOOD ORDERABLES Fin al Result Performing Organization Address [facility] Phone Number [facility] [address] [facility] [place] [address] * (ABNORMAL) Hemoglobin A1c (08/06/2024 5:04 PM ATMOSPHERIC CHEMIST) Hgb A1C 8.4(H) 4.0 - 5.6 % Estimated Average Glucose 194 mg/dL CHARISSA ELIAS Comment: The ADA recommends reporting an estimated Average Glucose (eAG) with all Hemoglobin A1c results using the equation derived from a study of 507 normal and diabetic adults. Minority populations were underrepresented and children were not included. (Diabetes Care 31:6332-8679, 2008). The eAG is not equivalent to a fasting glucose. Blood 08/06/2024 5:04 PM ATMOSPHERIC CHEMIST 08/06/2024 5:24 PM ATMOSPHERIC CHEMIST Taiwo Vázquez MD LAB BLOOD ORDERABLES Fin al Result Performing Organization Address City/[facility] Co de Phone Number CHARISSA DUNNEWCH [address] [facility] [place] [address] * (ABNORMAL) Bilirubin, direct (08/06/2024 5:04 PM ATMOSPHERIC CHEMIST) Pathologist [facility] [place] Bilirubin, direct 0.6(H) 0.1 - 0.3 mg/dL Blood 08/06/2024 5:04 PM ATMOSPHERIC CHEMIST 08/06/2024 5:24 PM ATMOSPHERIC CHEMIST Taiwo Vázquez MD LAB BLOOD ORDERABLES Fin al Result Performing Organization Address [facility] Phone Number CHARISSA DUNNECH [address] [facility] [place] [address] * (ABNORMAL) Comprehensive metabolic panel (08/06/2024 5:04 PM ATMOSPHERIC CHEMIST) Sodium 134(L) 135 - 145 mmol/L Potassium, pl 4.2 3.3 - 4.9 mmol/L [facility] Chloride 96(L) 97 - 110 mmol/L [facility] CO[facility] 28 22 - 32 mmol/L [facility] Anion gap 10 2 - 15 mmol/L [facility] BUN 24 6 - 25 mg/dL [facility] Creatinine 1.66(H) 0.60 - 1.10 mg/dL [facility] Glucose 345(H) 70 - 199 mg/dL [facility] Comment: Interpretive Data Fasting glucose >/= [...] Units/L [facility] Blood 08/06/2024 5:04 PM ATMOSPHERIC CHEMIST 08/06/2024 5:24 PM ATMOSPHERIC CHEMIST Taiwo Vázquez MD LAB BLOOD ORDERABLES Fin al Result CHARISSA SOLER [address] [facility]. Department [place] [address] * SCAN - LABS (08/03/2024) Provider Scanning Final Result * (ABNORMAL) eGFR (07/30/2024 1:25 PM ATMOSPHERIC CHEMIST) eGFR 36(L) >=60 mL/min/1. 73 m2 Comment: [...] last reviewed 2021. Blood 07/30/2024 1:25 PM ATMOSPHERIC CHEMIST 07/30/2024 1:39 PM ATMOSPHERIC CHEMIST us Taiwo Vázquez MD LAB BLOOD ORDERABLES Fin al Result [facility] Department [place] [address] * (ABNORMAL) Comprehensive metabolic panel (07/30/2024 1:25 PM ATMOSPHERIC CHEMIST) Sodium 133(L) 135 - 145 mmol/L Potassium, pl 4.5 3.3 - 4.9 mmol/L [facility] Chloride 96(L) 97 - 110 mmol/L [facility] CO2 29 22 - 32 mmol/L [facility] Anion gap 8 2 - 15 mmol/L [facility] BUN 31(H) 6 - 25 mg/dL [facility] Creatinine 1.59(H) 0.60 - 1.10 mg/dL [facility] Glucose 327(H) 70 - 199 mg/dL [facility] Comment: Interpretive Data Fasting glucose [...] Calcium 9.7 8.5 - 10.3 mg/dL [facility] Bilirubin, total 2.2(H) 0.1 - 1.2 mg/dL [facility] Protein, pl 6.6 6.5 - 8.5 g/dL [facility] Albumin 3.2(L) 3.5 - 5.0 g/dL [facility] Alk phos 117 40 - 130 Units/L [facility] ALT 36 7 - 45 Units/L [facility] AST 42 10 - 45 Units/L [facility] Blood 07/30/2024 1:25 PM ATMOSPHERIC CHEMIST 07/30/2024 1:36 PM ATMOSPHERIC CHEMIST us Taiwo Vázquez MD LAB BLOOD ORDERABLES Fin al Result [facility] Department [place] [address] * (ABNORMAL) Differential, auto (07/30/2024 1:10 PM ATMOSPHERIC CHEMIST) Neutrophil abs 2.8 1.5 - 6.5 K/cumm Imm gran abs 0.0 0.0 - 0.1 K/cumm [facility] Lymphocyte abs 1.1 0.8 - 3.3 K/cumm [facility] Monocyte abs 0.5 0.2 - 0.8 K/cumm [facility] Eosinophil abs 0.8(H) 0.0 - 0.5 K/cumm [facility] Basophil abs 0.0 0.0 - 0.1 K/cumm [facility] Neutrophil pct 52.8 % [facility] Comment: Interpretive Data Percent cell count reference ranges are not reported, since discordance with absolute values may lead to misinterpretation of CBC data. Current Interpretive Data was last revised on 2017. Imm gran pct 0.2 % [facility] Comment: Interpretive Data Percent cell count reference ranges are not reported, since discordance with absolute values may lead to misinterpretation of CBC data. Current Interpretive Data was last revised on 2017. Lymphocyte pct 21.2 % [facility] Comment: Interpretive Data Percent cell count reference ranges are not reported, since discordance with absolute values may lead to misinterpretation of CBC data. Current Interpretive Data was last revised on 2017. Monocyte pct 10.1 % [facility] Comment: Interpretive Data Percent cell count reference ranges are not reported, since discordance with absolute values may lead to misinterpretation of CBC data. Current Interpretive Data was last revised on 2017. Eosinophil pct 14.9 % [facility] Comment: Interpretive Data Percent cell count reference ranges are not reported, since discordance with absolute values may lead to misinterpretation of CBC data. Current Interpretive Data was last revised on 2017. Basophil pct 0.8 % [facility] Comment: Interpretive Data Percent cell count reference ranges are not reported, since discordance with absolute values may lead to misinterpretation of CBC data. Current Interpretive Data was last revised on 2017. Blood 07/30/2024 1:10 PM ATMOSPHERIC CHEMIST 07/30/2024 1:36 PM ATMOSPHERIC CHEMIST us Taiwo Vázquez MD LAB BLOOD ORDERABLES Fin al Result [facility] Department [place] [address] * (ABNORMAL) CBC with auto differential (07/30/2024 1:10 PM ATMOSPHERIC CHEMIST) WBC 5.2 3.8 - 9.9 K/cumm Hgb 12.6 11.9 - 15.5 g/dL [facility] Hct 37.1 35.6 - 45.5 % [facility] Plt 64(L) 150 - 400 K/cumm [facility] MPV 12.3 9.1 - 12.3 fL [facility] RBC 4.07 3.90 - 5.20 M/cumm [facility] MCV 91.2 81.3 - 96.4 fL [facility] MCH 31.0 27.1 - 33.3 pg [facility] MCHC 34.0 32.3 - 35.7 g/dL [facility] RDW CV 15.4(H) 11.1 - 14.9 % [facility] RDW SD 51.0(H) 35.7 - 48.1 fL [facility] NRBC abs 0.00 0.00 - 0.01 K/cumm [facility] Blood 07/30/2024 1:10 PM ATMOSPHERIC CHEMIST 07/30/2024 1:36 PM ATMOSPHERIC CHEMIST Taiwo Vázquez MD LAB BLOOD ORDERABLES Fin al Result CHARISSA DUNNE [facility] [place] [address] * (ABNORMAL) Protime-INR (07/30/2024 1:10 PM ATMOSPHERIC CHEMIST) PT 15.1(H) 9.7 - 13.0 sec INR 1.39(H) 0.90 - 1.20 [facility] Comment: Interpretive data Oral anticoagulant therapeutic ranges: Venous thromboembolism prophylaxis or treatment: 2.0-3.0 CARDIOLOGY Standard range: 2.0-3.0 High-intensity range: 2.5-3.5 Refer to indication-specific guidelines for appropriate target ranges for prosthetic heart valve replacement. Current interpretive data was last revised on 2019. Blood 07/30/2024 1:10 PM ATMOSPHERIC CHEMIST 07/30/2024 1:36 PM ATMOSPHERIC CHEMIST Taiwo Vázquez MD LAB BLOOD ORDERABLES Fin al Result Performing Organization Address City/[facility]/ZIP Co de Phone Number CHARISSA DUNNE [facility] [place] [address] * HLA Antibody Screen by PRA or SAB per Schedule (Class I and Class II) (07/20/2024 10:00 AM ATMOSPHERIC CHEMIST) Blood 07/20/2024 10:0 0 AM ATMOSPHERIC CHEMIST Narrative [facility] - ATMOSPHERIC CHEMIST Sample received in lab. Single Antigen Antibody Screen ordered. Timothy Pardo MD LAB BLOOD ORDERABL ES Final Result [facility] * HLA Antibody Screen - SAB (Class I and Class II) (07/20/2024 10:00 AM ATMOSPHERIC CHEMIST) Class I Treatment EDTA [facility] Class I [...] DR12, DR52 [facility] 07/20/2024 10:0 0 AM ATMOSPHERIC CHEMIST 07/23/2024 10:09 AM ATMOSPHERIC CHEMIST Narrative [facility] - 07/23/2024 10:09 AM ATMOSPHERIC CHEMIST Single-antigen HLA antibody screen is performed on serum samples using a method developed and validated by the [facility] HLA laboratory based on an FDA-approved IVD kit (LABScreen Single-Antigen, [employer], [place], [place]). All patient serum samples are pretreated with EDTA before the screen to prevent complement interference. Additional serum treatments, such as adsorption and DTT treatment, may be performed as indicated. Interpretive comments: Low risk: MFI [id number]. Moderate risk: MFI [id number]. Increased risk: MFI >/= 5000. The presence [...] antigens to avoid. Testing performed at the [facility] HLA Laboratory, [address] [place] [address], 5th floor, [place], [address]. IA # [id number]. Rani Smith, Ph.D., Centralized Traffic Control Operator, HLA Laboratory Aurelio Palafox M.D., Ph.D., Manager Sharepoint, HLA Laboratory Norma Talamantes, Ph.D., CLIA Manager Sharepoint, [facility] Clinical Laboratories Current methodology and interpretive comments last revised on 09/06/2022. Timothy Pardo MD LAB BLOOD ORDERABL ES Final Result [facility] * SCAN - LABS (07/20/2024) us Provider Scanning Edited Result - Final * Pap and High Risk HPV and Genotyping (Cytology Component) (04/28/2024 10:41 AM CDT) Thin prep (Pap test) 04/28/2024 10:41 AM CDT 04/28/2024 1:00 PM CDT Narrative PATHOLOGY [facility] - 05/04/2024 4:21 PM CDT EPIC results best viewed via link to PDF [facility] [place] [address] Note to Patients: This report may contain [...] the details. CYTOPATHOLOGY REPORT FINAL Patient Name: NAEL LEVINE Gender: Michelle : 1960 (Age: 63) Address: [address] [place] [id number] Hospital #: [id number] Service: Medical Location: [place] [address] Patient Type: [facility] Inpatient Taken: 04/28/2024 Received: 04/28/2024 [...] virus (HPV) is performed by the Becki Suze 6800 HPV test. This assay specifically detects [...] this test have been verified by the [facility] Molecular Infectious Disease laboratory. Correlate [...] clinical information and biopsy results as indicated. [facility] Clinical Laboratory Improvement Amendments (CLIA) mandate that cytologic and histologic results be correlated for laboratory research quality assurance specialist & improvement standards. FOR ALL HIGH-GRADE [...] determined by the Surgical Pathology Department at [facility] as part of an ongoing quality assurance analyst program and in compliance with federally mandated [...] determined by the Surgical Pathology Department of [facility]. It has not been cleared or approved by the U. S. Food and Drug Administration. us Eladio Carey MD LAB CYTOLOGY ORDERABLES Final Result PATHOLOGY [facility] 3rd Floor [place], [place] [phone] * Screening Mammogram Bilateral W Pal (04/27/2024 1:55 PM CDT) Anatomical Region Laterality Modality Breast Bilateral Mammography Narrative 04/27/2024 1:52 PM CDT Mammogram Technique: Bilateral Digital Breast Tomosynthesis, Bilateral C-view 2D Screening mammogram. Views obtained: bilateral craniocaudal and bilateral mediolateral oblique. Computer Aided Detection was performed. Mammogram Findings: The present examination has been compared to prior imaging studies performed at [facility] on 05/15/2021 and 12/06/2021. There [...] compared to prior imaging studies performed at [facility] on 05/15/2021 and 12/06/2021. There [...] revised on 2018. HDL 64 >=40 mg/dL [facility] Comment: Interpretive Data Ages < [...] on 2018. LDL, calculated 47 <=129 mg/dL [facility] Comment: Interpretive Data Ages < [...] NCEP Expert Panel. Circulation 2004;110:227 3. Gavin Chen. SCOTT Cardiol. 2020 December 10;5(5):540-548. doi: 10.1001/[email or web address].2020.0013 Current Interpretive Data was last revised on 2024. Non-HDL Cholesterol 58 mg/dL [facility] Comment: Interpretive Data Ages < or = [...] last revised on 2018. Chol/HDL ratio 2 [facility] Blood 04/22/2024 12:5 8 AM CDT 04/22/2024 3:00 AM CDT us John Paul Reddy MD LAB BLOOD ORDERABLES Final Resul t Performing Organization Address City/[facility] Co de Phone Number [facility] [place] [address] * Hepatitis C antibody Blood (06/16/2023 6:09 AM ATMOSPHERIC CHEMIST) Hep C Ab Nonreactive Nonreactive [facility] Comment:Antibodies to HCV no t detected. Does NOT exclude the possibility of recent exposure to HCV. Current interpretive data was last revised on 22 Blood 06/16/2023 6:09 AM ATMOSPHERIC CHEMIST 06/16/2023 6:35 AM ATMOSPHERIC CHEMIST us Alejandro Frazier MD LAB MICROBIOLOGY - GENERAL ORDERABLES Final Result Performing Organization Address City/[facility] Co de Phone Number [facility] [place] [address] * COLONOSCOPY (05/30/2022 9:28 AM CDT) Anatomical Region Laterality Modality Other Narrative Procedure Note Pat Robins MD - 05/30/2022 9:28 AM CDT GI ENDOSCOPY [facility] Patient Name: Nael Levine Procedure Date: 05/30/2022 9:28 AM Date of : 1960 Admit Type: Outpatient Age: 61 Gender: Female Attending MD: Pat Robins M.D. Room: [facility] ENDOSCOPY ROOM 3 Note Status: Finalized [...] The scope was passed under direct vision.The [facility] [id number] endoscope was introducedthrough the anus and [...] medications. - Repeat colonoscopy in 10 years [facility] - Return to referring physician in 10 years. Attending Participation: I personally performed the entire procedure. Electronically signed by Pat Robins MD Pat Robins M.D. 05/30/2022 10:31:01 AM . Number of Addenda: 0 Note Initiated On: 05/30/2022 9:28 AM Recognized by the [place] [employer] for promoting quality in endoscopy Pat Robins MD ENDOSCOPY PROCEDURES Ju l Result * Albumin Creatinine Ratio, Urine (03/01/2021 2:45 PM CDT) Albumin Ur <12.0 mg/L [facility] Comment: Interpretive Data No reference range established. Current interpretive data was last revised 2018. Creatinine Ur 59.5 mg/dL [facility] Comment: Interpretive Data No reference range established. Current interpretive data was last revised 2018. Albumin Creatinine Ratio, Ur <20 1 - 29 mg/g [facility] Urine 03/01/2021 2:45 PM CDT 03/01/2021 3:41 PM CDT Oly Baker MD LAB URINE ORDER RAVEN Final Result [facility] [place] [address] from Last 3 Months or Most Recently Relevant to Health Maintenance Additional Health Concerns Active Problems Noted Date Diagnosed Date Initial Follow-Up Appointment 10/05/2024 Note: Pt hospitalized for hepatic encephalopathy. 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 Epic risk 26 Barriers to Medication Adherence 10/05/2024 Problems In Home Environment 10/05/2024 Insurance [facility] EPO BLUE ACCESS [place] ACC[place] BLUE ACCESS [facility] Member Subscriber Plan / Payer (Ef fective 2021-Present) Name:Nael Levine Relation to Subscriber:Self Name:Nael Levine Payer ID:[id number] (NAIC) Type:Tutorspree Address: [address] [facility] MEDICARE SOLUTIONS MEDICARE SOLUTIONS TRANSPLANT [employer] MEDICARE RISK [employer] MEDICAL CONDITIONS [place] [address] TRANSPLANT [employer] MEDICARE RISK [employer] [place] [address] TRANSPLANT [employer] MEDICARE RISK [employer] MEDICAL CONDITIONS [place] [id number] Advance Directives For more information, please contact: [phone] * Full Code (Latest Code Status on File) Date Activated Date Inactivated Comments 09/24/2024 6:33 PM 10/02/2024 9:03 PM * Full Code Date Activated Date Inactivated Comments 04/21/2024 8:02 PM 04/29/2024 8:05 PM * Full Code Date Activated Date Inactivated Comments 06/16/2023 5:52 AM 06/16/2023 6:30 PM * Full Code Date Activated Date Inactivated Comments 01/27/2023 8:35 AM 02/05/2023 7:30 PM * Full Code Date Activated Date Inactivated Comments 01/05/2023 7:39 PM 01/08/2023 4:21 PM Care Teams Ell Tutor Relationship Specialty Start Date End Date Maddy Romano MD [address] [place], [place] [id number] PCP - General 09/28/16 Manas Ibarra MD [address] [place] [address] Referring Physician Thoracic Surgery 11/05/18 Zion Barton MD [address] [place], [place] [id number] Radiation Oncologist Radiation Oncology 05/05/19 Molina Charles MD [address] [facility] [address] [place], [place] [id number] Referring Physician Transplant Hepatology 12/15/20 Inés Lemus, TYRA [address] [facility] [address] [place], [place] [id number] Senior Quality Assurance Engineer 10/31/21 Karuna Maria, OT Occupational Therapist Occupational Therapy 09/20/22 Renu Treviño NP [address] [facility] [address] [place] [address] Nurse Practitioner Radiation Oncology 11/08/22 Eladio Mcrae MD [address] [place] [address] Referring Physician Obstetrics and Gynecology 11/15/22 Tamiko Schroeder, RN [address] [place] [address] Senior Quality Assurance Engineer 04/27/24 Marina Le, RN [address] [facility] [address] [place] [address] [facility]OP Outpatient Administrative Manager 10/05/24
--- OUTSIDE RECORDS SUMMARY | 2024-10-05 17:12 | XMS_ITS | Referral Summary ---
Author Organization [facility] Address [address] [place] [address] Care Team Providers Care Sneller Hand Name Role Phone Maddy Romnao MD Primary Care Provider Manas Ibarra MD Unavailable Zion Barton MD Unavailable Molina Charles MD Unavailable [phone] Inés Lemus RN Unavailable [phone] Karuna Maria OT Unavailable Unavaila Renu Paul NP Unavailable [phone] Eladio Mcrae MD Unavailable [phone] Tamiko Schroeder RN Unavailable [phone] Marina Le RN Unavailable [phone] Encounters Date Type Department Care Team Description 10/05/2024 Results Follow-Up [facility] Transplant Liver [address] [facility] [address]409 Mailstop [phone] [place] [address] Inés Lemus, TYRA 10/05/2024 Telephone [facility] Transplant Liver [address] [facility] [address] Mailop -85-5 [place] [address] Inés Lemus, TYRA 10/05/2024 SHOP/CHAP Initial Outreach [facility] CASE MANAGEMENT [address] [place] [address] Marina Le RN 10/05/2024 SHOP/CHAP Initial Eligibility Review [facility] [address] [place] [phone] Marina Le RN 09/24/2024 12:08 PM FIELD SERVICE SUPERVISOR - 10/02/2024 5:03 PM FIELD SERVICE SUPERVISOR Hospital Encounter [address] [phone] Paxton Hawk MD Mudd, Peter Shine MD PhD Lexis, MD Sandra Michaels Alvin, MD Stephenson, Kevin Blakeslee, MD Gastrointestinal hemorrhage, unspecified gastrointestinal hemorrhage type (Primary Dx); Hepatic encephalopathy (HCC); Stage 3b chronic kidney disease (HCC); Dysphagia, oropharyngeal; Physical debility Discharge Disposition: Discharge to home or self care 09/29/2024 Documentation [facility] Transplant Liver [address] [place] [address] [address] [facility] [address] [place] [address] Chelsea Barker, TYRA 09/28/2024 Documentation [facility] Transplant Liver [address] [place] [address] [address] Mailop -[address] [place] [address] Chelsea Barker, TYRA 09/24/2024 Telephone [facility] Transplant Liver [address] [place] [address] [address] [facility] [address] [place] [address] Inés Lemus, TYRA 09/24/2024 Telephone [facility] Gastroenterology [address] [place] [address] Medical Office Building 4, [address] [place] [address] Gregory Del Cid MD 09/21/2024 10:00 AM FIELD SERVICE SUPERVISOR - 09/21/2024 11:59 PM FIELD SERVICE SUPERVISOR Hospital Encounter [address] [address] ESRD (end stage renal disease) (CMS/HCC) (HCC) Discharge Disposition: Discharge to home or self care 09/15/2024 Documentation [facility]enterology [address] [facility] Advanced Medicine 12th [place] [address] [place] [address] Alexandra Issa, TRYA 09/14/2024 Telephone [facility] Transplant Liver [address] [facility] 340 Mailstop [phone] [place] [address] Inés Lemus, TYRA 09/07/2024 Orders Only [facility] Scanning, Provider 08/30/2024 Telephone [facility] Transplant Liver [address] [address] Mailstop [phone] [place] [address] Inés Lemus, TYRA 08/28/2024 Documentation [facility]ology [address] [place] [address] Advanced Medicine [facility] [place] [address] [place] [address] Alexandra Issa, TYRA 08/27/2024 1:40 PM [facility] [address] [place] [phone] LYONS (nonalcoholic steatohepatitis) 08/25/2024 Documentation [facility] [address] [place] [address] Advanced Medicine 12th [place] [address] [place] [address] Alexandra Issa, RN 08/25/2024 Telephone [facility] Transplant Liver [address] [facility] [address] Mailstop 16-57-710 [place] [address] Inés Lemus, TYRA 08/25/2024 Documentation [facility] [address] [place] [address] Advanced Medicine 12th [place] [address] [place] [address] Alexandra Issa, TYRA 08/24/2024 10:00 AM FIELD SERVICE SUPERVISOR - 08/24/2024 11:59 PM FIELD SERVICE SUPERVISOR Hospital Encounter [facility] [address] [place] [address] ESRD (end stage renal disease) (CMS/HCC) (HCC) Discharge Disposition: Discharge to home or self care 08/24/2024 Orders Only [facility] Scanning, Provider 08/24/2024 9:00 AM FIELD SERVICE SUPERVISOR Social Work [facility] Transplant Center [address] [facility], 8th Floor, [place] [address] Ragini Garner LCSW 08/17/2024 Telephone [facility] Transplant Liver [address] [facility] [address] Mailstop 08-17-788 [place] [address] Inés Lemus, TYRA 08/07/2024 Telephone [facility] Transplant Liver [address] [facility] [address] Mailstop [phone] [place] [address] Inés Lemus, TYRA 08/06/2024 4:35 PM FIELD SERVICE SUPERVISOR Lab [facility] [address] [place] [address] Hepatic encephalopathy (HCC); Type 2 diabetes mellitus with stage 4 chronic kidney disease, with long-term current use of insulin (HCC); Hepatic cirrhosis, unspecified hepatic cirrhosis type, unspecified whether ascites present (HCC); Dysuria 08/06/2024 3:45 PM FIELD SERVICE SUPERVISOR Office Visit [facility] Medical Office Building 4, [address] [place] [phone] Taiwo Vázquez MD Hepatic cirrhosis, unspecified hepatic [...] LYONS (CMS/HCC) (HCC); Dysuria 08/03/2024 Orders Only [facility] Scanning, Provider 07/31/2024 Documentation [facility] [address] [facility] Advanced Medicine 12th [place] [address] [place] [address] Alexandra Issa RN 07/31/2024 Documentation [facility] Transplant Liver [address] [facility] [address] Mailstop 76-52-580 [place] [address] Chelsea Barekr RN 07/31/2024 Orders Only [facility] [address] [place] [address] 12th [place] [address] [place] [address] Alexandra Issa RN 07/30/2024 3:45 PM FIELD SERVICE SUPERVISOR Lab [facility] ([facility] [address] [place] [phone] ESRD (end stage renal disease) (CMS/HCC) (HCC); LYONS (nonalcoholic steatohepatitis) 07/24/2024 Telephone [facility] Transplant Liver [address] [facility] [address] Mailstop 02-92-188 [place] [address] Inés Lemus, TYRA 07/24/2024 Telephone [facility] Transplant Liver [address] [facility] [address] Mailstop 90-25-284 [place] [address] Inés Lemus, TYRA 07/22/2024 Documentation [facility]enterology [address] [place] [address] [place] [address] [place] [address] Alexandra Issa, TYRA 07/20/2024 10:00 AM FIELD SERVICE SUPERVISOR - 07/20/2024 11:59 PM FIELD SERVICE SUPERVISOR Hospital Encounter [facility] [address] [address] ESRD (end stage renal disease) (CMS/HCC) (HCC) Discharge Disposition: Discharge to home or self care 07/20/2024 Orders Only [facility] Scanning, Provider 07/17/2024 Telephone [facility] Specialty Services [address] [place] [address] Mayra Machuca RN 07/17/2024 Telephone [facility] Transplant Liver [address] [facility] [address] Mailstop [phone] [place] [address] Inés Lemus, TYRA 07/15/2024 10:30 AM FIELD SERVICE SUPERVISOR Office Visit [facility] 12th [place] [address] [place] [phone] Britany Toribio MD Cirrhosis of liver without ascites, unspecified hepatic cirrhosis type (HCC) (Primary Dx) 07/08/2024 Documentation [facility] 12th [place] [address] [place] [phone] Alexandra Issa RN from Last 3 Months Allergies Active Allergy [...] 2 diabetes mellitus without complication, unspecified whether exterminator helper termite insulin use (HCC) Will use 1 transmitter every 90 days 1 each 1 Active pen needle, diabetic (BD Ultra-Fine Mini Pen Needle) 31 gauge x 3/16 needleIndications :Type 2 diabetes mellitus without complication, unspecified whether exterminator helper termite insulin use (HCC) USE TO INJECT INSULIN SIX TIMES PER DAY 200 each 11 Active insulin glargine (LANTUS) 100 unit/mL (3 mL) pen for injection Inject 40 Units under the skin nightly 15 mL Active pen needle, diabetic (Pen Needle) 32 gauge x 32 needle Use as directed once a day. 100 each Active insulin lispro (ADMELOG) 100 unit/mL pen [...] 025 2024 Active blood-glucose meter,continuous (Dexcom G7 Flight Service Agent) [facility] Use as directed. 1 each Active glucagon [...] mg total) by mouth daily 30 tablet 025 2024 Active blood-glucose sensor (Equity [employer]deavor[employer] G7 Sensor) device Use as directed. Change [...] 2 diabetes mellitus without complication, unspecified whether exterminator helper termite insulin use (HCC) Use to inject insulin [...] Sliding Scale Insulin Instructions. 1.2 mL 3 2024 Discontinued(S top Taking at Discharge) insulin [...] mouth daily 30 capsule 11 024 2024 Discontinued(S top Taking at Discharge) insulin glargine 100 unit/mL (3 mL) pen for injection Inject 20 Units under the skin nightly 15 mL 3 024 2024 Discontinued(S top Taking at Discharge) spironolactone (ALDACTONE) 50 mg tablet Take 5 tablets (250 mg total) by mouth daily 150 tablet 11 024 2024 Discontinued bumetanide (BUMEX) 1 mg tabletIndications :Stage 3b chronic kidney disease (HCC) TAKE 2 TABLETS BY MOUTH EVERY MORNING AND 1 TABLET EVERY EVENING MEAL 270 tablet 2024 Discontinued cholestyramine (Questran) 4 gram packet Take 1 packet by mouth 2 (two) times a day 60 packet 2 2024 Discontinued(S top Taking at Discharge) phentermine [...] 10/10/2022 Assessment & Plan (10/12/2022 12:20 PM FIELD SERVICE SUPERVISOR): Episode of atrial flutter overnight with RVR up to 140s. Patient asymptomatic, normotensive. IV metoprolol X2 given to achieve rate control. [id number] vasc score of 3. TTE from 09/03 without valvular abnormalities. No new episodes today. Lytes within normal limits. - Continue monitor and storage bin tender - Continue home dose of metoprolol 25mg BID - Given that patient might be listed for transplant, hepatology would prefer to avoid apixaban. Lovenox is not ideal given her platelet count less than 100. Her INR is too high to consider warfarin. Anemia 10/05/2022 Assessment & Plan (10/11/2022 12:28 PM FIELD SERVICE SUPERVISOR): - Hgb has down trended from 8 [...] 10/05/2022 Assessment & Plan (10/11/2022 12:45 PM FIELD SERVICE SUPERVISOR): -Continue home dose of metoprolol 25mg BID Hepatic encephalopathy 07/31/2022 Assessment & Plan (03/06/2023 5:49 PM CDT): Good control on current medical management. No changes indicated. Assessment & Plan (08/03/2022 1:05 PM FIELD SERVICE SUPERVISOR): Pt with hx of LYONS cirrhosis presenting with progressively worsening mental status over past several weeks. On initial examination patient was AAOx1, on subsequent exam she is now AAOx2 with appropriate responses. NH3 75. Unfortunately no safe area for bedside diagnostic paracentesis. Slurred speech and concerns for swallowing. HIDE HANDLER completed swallow study and normal. Head CT: No acute intracranial abnormality. -Awaiting Liver MRI -Increased Lactulose to 4x daily (only 1 stool on 08/02) - Rifaximin and Lactulose (goal 3-5 bowel movements) - Fall precautions. - PT/OT: Home with assistance. Assessment & Plan (08/02/2022 2:34 PM FIELD SERVICE SUPERVISOR): Pt with hx of LYONS cirrhosis presenting with progressively worsening mental status over past several weeks. On initial examination patient was AAOx1, on subsequent exam she is now AAOx2 with appropriate responses. NH3 75. Unfortunately no safe area for bedside diagnostic paracentesis. Slurred speech and concerns for swallowing. HIDE HANDLER completed swallow study and normal. Head CT: No acute intracranial abnormality. - Rifaximin and Lactulose (goal 3-5 bowel movements) - Fall precautions. - PT/OT: Home with assistance. - HIDE HANDLER completed bedside swallow and Normal Assessment & Plan (08/01/2022 3:28 PM FIELD SERVICE SUPERVISOR): Pt with hx of LYONS cirrhosis presenting [...] concerns for swallowing. - Fall precautions. - HIDE HANDLER/PT/OT Consults. Assessment & Plan (08/01/2022 4:16 AM FIELD SERVICE SUPERVISOR): Pt with hx of LYONS cirrhosis presenting [...] (10/22/2022): Added automatically from request for surgery [id number] Volume overload 10/06/2022 05/29/2024 Assessment & Plan (10/10/2022 1:09 PM FIELD SERVICE SUPERVISOR): In the setting of LYONS cirrhosis. Diuretics [...] (08/22/2022): Added automatically from request for surgery [id number] Portal vein thrombosis 08/01/202208/22 Assessment & Plan (08/03/2022 1:09 PM FIELD SERVICE SUPERVISOR): -Apixaban 2.5mg BID Assessment & Plan (08/02/2022 2:39 PM FIELD SERVICE SUPERVISOR): -Apixaban 2.5mg BID Assessment & Plan (08/01/2022 3:27 PM FIELD SERVICE SUPERVISOR): -Apixaban 2.5mg BID Assessment & Plan (08/01/2022 4:17 AM FIELD SERVICE SUPERVISOR): Continue home apixaban LYONS (nonalcoholic steatohepatitis) 11/02/2021 07/15/2024 Abnormal mammogram of right breast 11/02/2020 08/22/2022 Preop cardiovascular exam 09/23/2019 Overview (09/23/2019): Added automatically from request for surgery [id number] Colon cancer screening 04/21/201908/22 Overview (04/21/2019): Added automatically from request for surgery [id number] Esophageal varices without bleeding (CMS/HCC) 04/21/20 19 08/22/2022 Overview (04/21/2019): Added automatically from request for surgery [id number] Steatosis of liver 05/20/2017 group home current use of ant icoagulant therapy 07/26/2016 [...] 05/29/2024 Assessment & Plan (10/12/2022 2:58 PM FIELD SERVICE SUPERVISOR): Previously on dose reduced insulin regimen at OSH 20u lantus, 7u tid lispro + ssi. - Her blood sugars were initially on the lower side (90-100) in setting of poor po intake and TR. Continue SSI only for now and will uptitrate as needed. - Continue Lantus 10u/daily + lispro 4TID Assessment & Plan (08/03/2022 1:09 PM FIELD SERVICE SUPERVISOR): Home regimen of toujeo 42 units + SSI. -Lantus, Lispro TID AC and SSI -No Juice Diet -Consistent Carb+ 2gm NA diet. -CTM BGL Assessment & Plan (08/02/2022 2:38 PM FIELD SERVICE SUPERVISOR): Home regimen of toujeo 42 units + SSI. -Lantus, Lispro TID AC and SSI -No Juice Diet -Consistent Carb+ 2gm NA diet. -CTM BGL Assessment & Plan (08/01/2022 3:26 PM FIELD SERVICE SUPERVISOR): Home regimen of toujeo 42 units + SSI. Given TR and decreased PO intake, insulin regimen reduced to Lantus 20units. - Continue on 2g Na + DM2 diet - CTM BGL Assessment & Plan (08/01/2022 4:17 AM FIELD SERVICE SUPERVISOR): Home regimen of toujeo 42 units + SSI Given TR and decreased PO intake, will dose reduce insulin regimen, 20units + SSIand uptitrate as needed Continue on 2g Na + DM2 diet Immunizations Immunization Administration Dates Next Due Hep B Vaccine 01/22/2024,12/18/2023 Influenza, Quadrivalent, Spl it, Intramuscular 05/01/2019,05/26/2015 Influenza, Quadrivalent, Spl it, Preservative Free, Intramuscular 07/02/2023,04/29/2020,05/01/2019,05/09,05/08/2018,05/23/2017,05/17/2016 Influenza, Trivalent, IM (MDV) 04/28/2021,2013 Influenza, Trivalent, Preser vative Free, Intramuscular 05/29/2013 vIPtela (J&J) SARS-CoV-2 Vaccination 10/17/2020 Pneumococcal Conjugate PCV 13 05/26/2015 Pneumococcal Polysaccharide PPV23 03/24/2014 RSV Vaccine, Pref, Recombina nt, Subunit, Adjuvanted, PF, IM (Arexvy) 12/18/2023 Tdap 03/24/2014 ZOSTER Recombinant 02/17/2020,05/29/2019 Social History Tobacco Use Types Packs/Day Years Used Date Smoking Tobacco: Former Cigarettes 0.5 51 1 970 - 2020 Smokeless Tobacco: Never Tobacco Cessation:Counseling Given: Not Answered [facility] [employer] Answer Date Recorded In the past 12 months has [employer], [employer], or water [employer] threatened to shut off services in your [...] 10/05/2024 How often do you attend chur or spiritism services? Never 10/05/2024 Do you belong to [...] place to sleep or slept in a long-term (including now)? No 12/31/2022 Housing Stability Vital [...] were you homeless or living in a long-term (including now)? No 10/05/2024 Personal Safety Answer Date Recorded Have you ever been in or are you currently in a harmful physical or emotional relationship or is someone making you feel afraid or unsafe? 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 file Last Filed Vital Signs Vital Sign Reading Time Taken Comments Blood Pressure 133/57 10/02/2024 2:45 PM FIELD SERVICE SUPERVISOR Pulse 100 10/02/2024 2:45 PM FIELD SERVICE SUPERVISOR Temperature 36.6 C (97.9 F) 10/02/2024 2:45 PM FIELD SERVICE SUPERVISOR Respiratory Rate 17 10/02/2024 2:45 PM FIELD SERVICE SUPERVISOR Oxygen Saturation 99% 10/02/2024 2:45 PM FIELD SERVICE SUPERVISOR Inhaled Oxygen Concentration - - Weight 110.7 kg (244 lb) 09/24/2024 6:35 PM FIELD SERVICE SUPERVISOR Height 170.2 cm (5' 7 ) 09/24/2024 6:35 PM FIELD SERVICE SUPERVISOR Body Mass Index 38.22 09/24/2024 6:35 PM FIELD SERVICE SUPERVISOR Plan of Treatment Scheduled Procedures Name Priority Associated Diagnoses Date/Ti me COLONOSCOPY Routine adult health maintenance LYONS (nonalcoholic steatohepatitis) Goals Goal Patient Goal Type Associated Problems [...] meds except the atorvastatin was sent to [facility] outpt pharmacy but not sent home with her. [facility] called [facility] to request that the prescription be transferred. Level of assistance will meet patient's needs Care Plan Problems In Home Environment Marina Madera, folder operator Procedure Name Priority Date/Time Associated Diagnosis Comments POCT GLUCOSE DEVICE Routine 10/02/2024 4:21 PM FIELD SERVICE SUPERVISOR HIDE HANDLER EVALUATE AND TREAT FIBEROPTIC ENDOSCOPIC SWALLOW Routine 10/02/2024 1:07 PM FIELD SERVICE SUPERVISOR POCT GLUCOSE DEVICE Routine 10/02/2024 11:33 AM FIELD SERVICE SUPERVISOR POCT GLUCOSE DEVICE Routine 10/02/2024 7:14 AM FIELD SERVICE SUPERVISOR POCT GLUCOSE DEVICE Routine 10/02/2024 4:19 AM FIELD SERVICE SUPERVISOR EGFR Routine 10/01/2024 9:18 PM FIELD SERVICE SUPERVISOR MAGNESIUM Routine 10/01/2024 9:18 PM FIELD SERVICE SUPERVISOR PHOSPHORUS Routine 10/01/2024 9:18 PM FIELD SERVICE SUPERVISOR PROTIME-INR Routine 10/01/2024 9:18 PM FIELD SERVICE SUPERVISOR COMPREHENSIVE METABOLIC PANEL Routine 10/01/2024 9:18 PM FIELD SERVICE SUPERVISOR POCT GLUCOSE DEVICE Routine 10/01/2024 7:35 PM FIELD SERVICE SUPERVISOR POCT GLUCOSE DEVICE Routine 10/01/2024 7:34 PM FIELD SERVICE SUPERVISOR POCT GLUCOSE DEVICE Routine 10/01/2024 5:12 PM FIELD SERVICE SUPERVISOR POCT GLUCOSE DEVICE Routine 10/01/2024 11:45 AM FIELD SERVICE SUPERVISOR POCT GLUCOSE DEVICE Routine 10/01/2024 7:45 AM FIELD SERVICE SUPERVISOR EGFR Routine 09/30/2024 9:22 PM FIELD SERVICE SUPERVISOR DIFFERENTIAL AUTO Timed 09/30/2024 9:22 PM FIELD SERVICE SUPERVISOR VITAMIN D 25 HYDROXY Timed 09/30/2024 9:22 PM FIELD SERVICE SUPERVISOR PTH Timed 09/30/2024 9:22 PM FIELD SERVICE SUPERVISOR CBC WITH AUTO DIFFERENTIAL Timed 09/30/2024 9:22 PM FIELD SERVICE SUPERVISOR MAGNESIUM Routine 09/30/2024 9:22 PM FIELD SERVICE SUPERVISOR PHOSPHORUS Routine 09/30/2024 9:22 PM FIELD SERVICE SUPERVISOR PROTIME-INR Routine 09/30/2024 9:22 PM FIELD SERVICE SUPERVISOR COMPREHENSIVE METABOLIC PANEL Routine 09/30/2024 9:22 PM FIELD SERVICE SUPERVISOR POCT GLUCOSE DEVICE Routine 09/30/2024 7:58 PM FIELD SERVICE SUPERVISOR POCT GLUCOSE DEVICE Routine 09/30/2024 4:20 PM FIELD SERVICE SUPERVISOR POCT GLUCOSE DEVICE Routine 09/30/2024 11:43 AM FIELD SERVICE SUPERVISOR POCT GLUCOSE DEVICE Routine 09/30/2024 7:54 AM FIELD SERVICE SUPERVISOR POCT GLUCOSE DEVICE Routine 09/30/2024 7:36 AM FIELD SERVICE SUPERVISOR POCT GLUCOSE DEVICE Routine 09/30/2024 12:28 AM FIELD SERVICE SUPERVISOR EGFR Routine 09/29/2024 8:49 PM FIELD SERVICE SUPERVISOR MAGNESIUM Routine 09/29/2024 8:49 PM FIELD SERVICE SUPERVISOR PHOSPHORUS Routine 09/29/2024 8:49 PM FIELD SERVICE SUPERVISOR PROTIME-INR Routine 09/29/2024 8:49 PM FIELD SERVICE SUPERVISOR COMPREHENSIVE METABOLIC PANEL Routine 09/29/2024 8:49 PM FIELD SERVICE SUPERVISOR POCT GLUCOSE DEVICE Routine 09/29/2024 8:08 PM FIELD SERVICE SUPERVISOR POCT GLUCOSE DEVICE Routine 09/29/2024 4:50 PM FIELD SERVICE SUPERVISOR POCT GLUCOSE DEVICE Routine 09/29/2024 11:35 AM FIELD SERVICE SUPERVISOR HIDE HANDLER EVALUATE AND TREAT FIBEROPTIC ENDOSCOPIC SWALLOW Routine 09/29/2024 10:55 AM FIELD SERVICE SUPERVISOR HIDE HANDLER EVALUATE AND TREAT VIDEOFLUOROSCOPIC SWALLOW STUDY Routine 09/29/2024 10:55 AM FIELD SERVICE SUPERVISOR POCT GLUCOSE DEVICE Routine 09/29/2024 7:34 AM FIELD SERVICE SUPERVISOR POCT GLUCOSE DEVICE Routine 09/29/2024 4:49 AM FIELD SERVICE SUPERVISOR POCT GLUCOSE DEVICE Routine 09/29/2024 12:25 AM FIELD SERVICE SUPERVISOR HEMOGLOBIN A1C Routine 09/28/2024 9:17 PM FIELD SERVICE SUPERVISOR EGFR Routine 09/28/2024 9:17 PM FIELD SERVICE SUPERVISOR DIFFERENTIAL AUTO Routine 09/28/2024 9:17 PM FIELD SERVICE SUPERVISOR MAGNESIUM Routine 09/28/2024 9:17 PM FIELD SERVICE SUPERVISOR PHOSPHORUS Routine 09/28/2024 9:17 PM FIELD SERVICE SUPERVISOR PROTIME-INR Routine 09/28/2024 9:17 PM FIELD SERVICE SUPERVISOR CBC WITH AUTO DIFFERENTIAL Routine 09/28/2024 9:17 PM FIELD SERVICE SUPERVISOR COMPREHENSIVE METABOLIC PANEL Routine 09/28/2024 9:17 PM FIELD SERVICE SUPERVISOR POCT GLUCOSE DEVICE Routine 09/28/2024 7:57 PM FIELD SERVICE SUPERVISOR POCT GLUCOSE DEVICE Routine 09/28/2024 4:31 PM FIELD SERVICE SUPERVISOR POCT GLUCOSE DEVICE Routine 09/28/2024 11:23 AM FIELD SERVICE SUPERVISOR POCT GLUCOSE DEVICE Routine 09/28/2024 8:01 AM FIELD SERVICE SUPERVISOR POCT GLUCOSE DEVICE Routine 09/28/2024 4:52 AM FIELD SERVICE SUPERVISOR POCT GLUCOSE DEVICE Routine 09/28/2024 12:29 AM FIELD SERVICE SUPERVISOR EGFR Routine 09/28/2024 12:06 AM FIELD SERVICE SUPERVISOR DIFFERENTIAL AUTO Routine 09/28/2024 12:06 AM FIELD SERVICE SUPERVISOR MAGNESIUM Routine 09/28/2024 12:06 AM FIELD SERVICE SUPERVISOR PHOSPHORUS Routine 09/28/2024 12:06 AM FIELD SERVICE SUPERVISOR PROTIME-INR Routine 09/28/2024 12:06 AM FIELD SERVICE SUPERVISOR CBC WITH AUTO DIFFERENTIAL Routine 09/28/2024 12:06 AM FIELD SERVICE SUPERVISOR COMPREHENSIVE METABOLIC PANEL Routine 09/28/2024 12:06 AM FIELD SERVICE SUPERVISOR POCT GLUCOSE DEVICE Routine 09/27/2024 11:55 PM FIELD SERVICE SUPERVISOR POCT GLUCOSE DEVICE Routine 09/27/2024 8:03 PM FIELD SERVICE SUPERVISOR POCT GLUCOSE DEVICE Routine 09/27/2024 4:26 PM FIELD SERVICE SUPERVISOR POCT GLUCOSE DEVICE Routine 09/27/2024 11:49 AM FIELD SERVICE SUPERVISOR POCT GLUCOSE DEVICE Routine 09/27/2024 8:05 AM FIELD SERVICE SUPERVISOR POCT GLUCOSE DEVICE Routine 09/27/2024 4:24 AM FIELD SERVICE SUPERVISOR POCT GLUCOSE DEVICE Routine 09/26/2024 11:20 PM FIELD SERVICE SUPERVISOR EGFR Routine 09/26/2024 9:23 PM FIELD SERVICE SUPERVISOR DIFFERENTIAL AUTO Routine 09/26/2024 9:23 PM FIELD SERVICE SUPERVISOR MAGNESIUM Routine 09/26/2024 9:23 PM FIELD SERVICE SUPERVISOR PHOSPHORUS Routine 09/26/2024 9:23 PM FIELD SERVICE SUPERVISOR PROTIME-INR Routine 09/26/2024 9:23 PM FIELD SERVICE SUPERVISOR CBC WITH AUTO DIFFERENTIAL Routine 09/26/2024 9:23 PM FIELD SERVICE SUPERVISOR COMPREHENSIVE METABOLIC PANEL Routine 09/26/2024 9:23 PM FIELD SERVICE SUPERVISOR POCT GLUCOSE DEVICE Routine 09/26/2024 7:53 PM FIELD SERVICE SUPERVISOR POCT GLUCOSE DEVICE Routine 09/26/2024 4:37 PM FIELD SERVICE SUPERVISOR EGFR Timed 09/26/2024 3:40 PM FIELD SERVICE SUPERVISOR BASIC METABOLIC PANEL Timed 09/26/2024 3:40 PM FIELD SERVICE SUPERVISOR POCT GLUCOSE DEVICE Routine 09/26/2024 11:16 AM FIELD SERVICE SUPERVISOR POCT GLUCOSE DEVICE Routine 09/26/2024 9:40 AM FIELD SERVICE SUPERVISOR LACTATE Timed 09/26/2024 8:16 AM FIELD SERVICE SUPERVISOR POCT GLUCOSE DEVICE Routine 09/26/2024 7:45 AM FIELD SERVICE SUPERVISOR POCT GLUCOSE DEVICE Routine 09/26/2024 4:26 AM FIELD SERVICE SUPERVISOR CT ABDOMEN PELVIS WO CONTRAST IP Routine 09/26/2024 3:17 AM FIELD SERVICE SUPERVISOR LACTATE Timed 09/26/2024 12:44 AM FIELD SERVICE SUPERVISOR POCT GLUCOSE DEVICE Routine 09/26/2024 12:08 AM FIELD SERVICE SUPERVISOR EGFR Routine 09/25/2024 10:48 PM FIELD SERVICE SUPERVISOR DIFFERENTIAL AUTO Routine 09/25/2024 10:48 PM FIELD SERVICE SUPERVISOR PROTIME-INR Routine 09/25/2024 10:48 PM FIELD SERVICE SUPERVISOR CBC WITH AUTO DIFFERENTIAL Routine 09/25/2024 10:48 PM FIELD SERVICE SUPERVISOR COMPREHENSIVE METABOLIC PANEL Routine 09/25/2024 10:48 PM FIELD SERVICE SUPERVISOR POCT GLUCOSE DEVICE Routine 09/25/2024 8:27 PM FIELD SERVICE SUPERVISOR POCT GLUCOSE DEVICE Routine 09/25/2024 6:12 PM FIELD SERVICE SUPERVISOR POCT GLUCOSE DEVICE Routine 09/25/2024 4:12 PM FIELD SERVICE SUPERVISOR CRITICAL RESULT CALLBACK CHEMISTRY Timed 09/25/2024 3:24 PM FIELD SERVICE SUPERVISOR LACTATE Timed 09/25/2024 3:24 PM FIELD SERVICE SUPERVISOR SODIUM, URINE, RANDOM Routine 09/25/2024 3:24 PM FIELD SERVICE SUPERVISOR URINALYSIS AND REFLEX TO MICROSCOPIC AND CULTURE STAT 09/25/2024 3:24 PM FIELD SERVICE SUPERVISOR POCT GLUCOSE DEVICE Routine 09/25/2024 2:41 PM FIELD SERVICE SUPERVISOR POCT GLUCOSE DEVICE Routine 09/25/2024 12:32 PM FIELD SERVICE SUPERVISOR TROPONIN I HIGH-SENSITIVITY 4-HOUR Timed 09/25/2024 11:38 AM FIELD SERVICE SUPERVISOR POCT GLUCOSE DEVICE Routine 09/25/2024 11:14 AM FIELD SERVICE SUPERVISOR CRITICAL RESULT CALLBACK CARDIO CHEM Timed 09/25/2024 9:51 AM FIELD SERVICE SUPERVISOR TROPONIN I HIGH-SENSITIVITY 2-HOUR Timed 09/25/2024 9:51 AM FIELD SERVICE SUPERVISOR POCT GLUCOSE DEVICE Routine 09/25/2024 9:19 AM FIELD SERVICE SUPERVISOR TROPONIN I HIGH-SENSITIVITY SERIES (BASELINE, 2HR, 4HR, 6HR) Timed 09/25/2024 7:44 AM FIELD SERVICE SUPERVISOR LACTATE Timed 09/25/2024 7:44 AM FIELD SERVICE SUPERVISOR POCT GLUCOSE DEVICE Routine 09/25/2024 7:32 AM FIELD SERVICE SUPERVISOR POCT GLUCOSE DEVICE Routine 09/25/2024 4:12 AM FIELD SERVICE SUPERVISOR POCT GLUCOSE DEVICE Routine 09/25/2024 2:52 AM FIELD SERVICE SUPERVISOR XR ABDOMEN AP 1 VIEW IP Routine 09/25/2024 1:32 AM FIELD SERVICE SUPERVISOR POCT GLUCOSE DEVICE Routine 09/25/2024 12:11 AM FIELD SERVICE SUPERVISOR MAGNESIUM Routine 09/24/2024 11:56 PM FIELD SERVICE SUPERVISOR EGFR Routine 09/24/2024 11:56 PM FIELD SERVICE SUPERVISOR DIFFERENTIAL AUTO Routine 09/24/2024 11:56 PM FIELD SERVICE SUPERVISOR PROTIME-INR Routine 09/24/2024 11:56 PM FIELD SERVICE SUPERVISOR [id number], TUMOR MARKER Timed 09/24/2024 11:56 PM FIELD SERVICE SUPERVISOR CBC WITH AUTO DIFFERENTIAL Routine 09/24/2024 11:56 PM FIELD SERVICE SUPERVISOR PHOSPHORUS Routine 09/24/2024 11:56 PM FIELD SERVICE SUPERVISOR COMPREHENSIVE METABOLIC PANEL Routine 09/24/2024 11:56 PM FIELD SERVICE SUPERVISOR TROPONIN I HIGH-SENSITIVITY 6-HOUR Timed 09/24/2024 11:56 PM FIELD SERVICE SUPERVISOR CRITICAL RESULT CALLBACK CHEMISTRY Timed 09/24/2024 11:55 PM FIELD SERVICE SUPERVISOR SEPSIS LACTATE WITH REFLEX Timed 09/24/2024 11:55 PM FIELD SERVICE SUPERVISOR POCT GLUCOSE DEVICE Routine 09/24/2024 11:08 PM FIELD SERVICE SUPERVISOR XR CHEST 1 VIEW ED Urgent/IP Urgent 09/24/2024 11:02 PM FIELD SERVICE SUPERVISOR US LIVER DOPPLER COMPLETE IP Routine 09/24/2024 9:07 PM FIELD SERVICE SUPERVISOR POCT GLUCOSE DEVICE Routine 09/24/2024 8:08 PM FIELD SERVICE SUPERVISOR VT CRITICAL CARE ILL/INJURED PATIENT INIT 30-74 MIN Routine 09/24/2024 4:23 PM FIELD SERVICE SUPERVISOR CRITICAL RESULT CALLBACK CHEMISTRY Timed 09/24/2024 2:37 PM FIELD SERVICE SUPERVISOR SEPSIS LACTATE WITH REFLEX Timed 09/24/2024 2:37 PM FIELD SERVICE SUPERVISOR TROPONIN I HIGH-SENSITIVITY 2-HOUR Timed 09/24/2024 2:36 PM FIELD SERVICE SUPERVISOR BLOOD CULTURE STAT 09/24/2024 2:36 PM FIELD SERVICE SUPERVISOR RESPIRATORY PATHOGEN PANEL STAT 09/24/2024 1:39 PM FIELD SERVICE SUPERVISOR BLOOD CULTURE STAT 09/24/2024 1:39 PM FIELD SERVICE SUPERVISOR XR CHEST 1 VIEW ED 09/24/2024 12:59 PM FIELD SERVICE SUPERVISOR POCT KETONE, BLOOD Routine 09/24/2024 12:40 PM FIELD SERVICE SUPERVISOR POCT GLUCOSE DEVICE Routine 09/24/2024 12:37 PM FIELD SERVICE SUPERVISOR EGFR STAT 09/24/2024 12:35 PM FIELD SERVICE SUPERVISOR DIFFERENTIAL AUTO STAT 09/24/2024 12:35 PM FIELD SERVICE SUPERVISOR CRITICAL RESULT CALLBACK CHEMISTRY STAT 09/24/2024 12:35 PM FIELD SERVICE SUPERVISOR AMMONIA STAT 09/24/2024 12:35 PM FIELD SERVICE SUPERVISOR TYPE AND SCREEN STAT 09/24/2024 12:35 PM FIELD SERVICE SUPERVISOR APTT STAT 09/24/2024 12:35 PM FIELD SERVICE SUPERVISOR PROTIME-INR STAT 09/24/2024 12:35 PM FIELD SERVICE SUPERVISOR TROPONIN I HIGH-SENSITIVITY SERIES (BASELINE, 2HR, 4HR, 6HR) STAT 09/24/2024 12:35 PM FIELD SERVICE SUPERVISOR SEPSIS LACTATE WITH REFLEX STAT 09/24/2024 12:35 PM FIELD SERVICE SUPERVISOR HEPATIC FUNCTION PANEL STAT 12:35 PM FIELD SERVICE SUPERVISOR BASIC METABOLIC PANEL STAT 09/24/2024 12:35 PM FIELD SERVICE SUPERVISOR CBC WITH AUTO DIFFERENTIAL STAT 09/24/2024 12:35 PM FIELD SERVICE SUPERVISOR BLOOD GAS, VENOUS STAT 09/24/2024 12:35 PM FIELD SERVICE SUPERVISOR NEURO CT OUTSIDE CONSULT Routine 09/24/2024 12:33 PM FIELD SERVICE SUPERVISOR XR TRANSFER OF OUTSIDE FILMS Routine 09/24/2024 12:28 PM FIELD SERVICE SUPERVISOR HLA ANTIBODY SCREEN - SAB (CLASS I AND CLASS II) Routine 09/21/2024 1:00 PM FIELD SERVICE SUPERVISOR ESRD (end stage renal disease) (CMS/HCC) (HCC) HLA ANTIBODY SCREEN BY PRA OR SAB PER SCHEDULE (CLASS I AND CLASS II) Routine 09/21/2024 1:00 PM FIELD SERVICE SUPERVISOR ESRD (end stage renal disease) (CMS/HCC) (HCC) SCAN - LABS 09/07/2024 EGFR Routine 08/27/2024 1:35 PM FIELD SERVICE SUPERVISOR LYONS (nonalcoholic steatohepatitis) COMPREHENSIVE METABOLIC PANEL Routine 08/27/2024 1:35 PM FIELD SERVICE SUPERVISOR LYONS (nonalcoholic steatohepatitis) PROTIME-INR Routine 08/27/2024 1:35 PM FIELD SERVICE SUPERVISOR LYONS (nonalcoholic steatohepatitis) HLA ANTIBODY SCREEN BY PRA OR SAB PER SCHEDULE (CLASS I AND CLASS II) Routine 08/24/2024 10:00 AM FIELD SERVICE SUPERVISOR ESRD (end stage renal disease) (CMS/HCC) (HCC) SCAN - LABS 08/24/2024 URINALYSIS, MICROSCOPIC ONLY Routine 08/06/2024 5:12 PM FIELD SERVICE SUPERVISOR Dysuria URINALYSIS AND REFLEX TO MICROSCOPIC AND CULTURE Routine 08/06/2024 5:12 PM FIELD SERVICE SUPERVISOR Dysuria EGFR Routine 08/06/2024 5:04 PM FIELD SERVICE SUPERVISOR Hepatic cirrhosis, unspecified hepatic cirrhosis type, unspecified whether ascites present (HCC) Hepatic encephalopathy (HCC) DIFFERENTIAL AUTO Routine 08/06/2024 5:04 PM FIELD SERVICE SUPERVISOR Hepatic cirrhosis, unspecified hepatic cirrhosis type, unspecified whether ascites present (HCC) Hepatic encephalopathy (HCC) CBC WITH AUTO DIFFERENTIAL Routine 08/06/2024 5:04 PM FIELD SERVICE SUPERVISOR Hepatic cirrhosis, unspecified hepatic cirrhosis type, unspecified whether ascites present (HCC) Hepatic encephalopathy (HCC) COMPREHENSIVE METABOLIC PANEL Routine 08/06/2024 5:04 PM FIELD SERVICE SUPERVISOR Hepatic cirrhosis, unspecified hepatic cirrhosis type, unspecified whether ascites present (HCC) Hepatic encephalopathy (HCC) BILIRUBIN, DIRECT Routine 08/06/2024 5:04 PM FIELD SERVICE SUPERVISOR Hepatic cirrhosis, unspecified hepatic cirrhosis type, unspecified whether ascites present (HCC) Hepatic encephalopathy (HCC) PROTIME-INR Routine 08/06/2024 5:04 PM FIELD SERVICE SUPERVISOR Hepatic cirrhosis, unspecified hepatic cirrhosis type, unspecified whether ascites present (HCC) Hepatic encephalopathy (HCC) [id number], TUMOR MARKER Routine 08/06/2024 5:04 PM FIELD SERVICE SUPERVISOR Hepatic cirrhosis, unspecified hepatic cirrhosis type, unspecified whether ascites present (HCC) Hepatic encephalopathy (HCC) HEMOGLOBIN A1C Routine 08/06/2024 5:04 PM FIELD SERVICE SUPERVISOR Hepatic encephalopathy (HCC) Type 2 diabetes mellitus with stage 4 chronic kidney disease, with long-term current use of insulin (HCC) BLOOD CULTURE Routine 08/06/2024 5:04 PM FIELD SERVICE SUPERVISOR Hepatic encephalopathy (HCC) SCAN - LABS 08/03/2024 EGFR Routine 07/30/2024 1:25 PM FIELD SERVICE SUPERVISOR LYONS (nonalcoholic steatohepatitis) COMPREHENSIVE METABOLIC PANEL Routine 07/30/2024 1:25 PM FIELD SERVICE SUPERVISOR LYONS (nonalcoholic steatohepatitis) DIFFERENTIAL AUTO Routine 07/30/2024 1:10 PM FIELD SERVICE SUPERVISOR LYONS (nonalcoholic steatohepatitis) CBC WITH AUTO DIFFERENTIAL Routine 07/30/2024 1:10 PM FIELD SERVICE SUPERVISOR LYNOS (nonalcoholic steatohepatitis) PROTIME-INR Routine 07/30/2024 1:10 PM FIELD SERVICE SUPERVISOR LYONS (nonalcoholic steatohepatitis) HLA ANTIBODY SCREEN - SAB (CLASS I AND CLASS II) Routine 07/20/2024 10:00 AM FIELD SERVICE SUPERVISOR ESRD (end stage renal disease) (CMS/HCC) (HCC) HLA ANTIBODY SCREEN BY PRA OR SAB PER SCHEDULE (CLASS I AND CLASS II) Routine 07/20/2024 10:00 AM FIELD SERVICE SUPERVISOR ESRD (end stage renal disease) (CMS/HCC) (HCC) SCAN - LABS 07/20/2024 PAP AND HIGH RISK HPV, REFLEX TO GENOTYPING Routine 04/28/2024 10:41 AM CDT SCREENING MAMMOGRAM BILATERAL W PAL IP Routine 04/27/2024 1:55 PM CDT LIPID PANEL Routine 04/22/2024 12:58 AM CDT HEPATITIS C ANTIBODY Routine 06/16/2023 6:09 AM FIELD SERVICE SUPERVISOR COLONOSCOPY 05/30/2022 9:28 AM CDT ALBUMIN CREATININE RATIO, URINE Routine 03/01/2021 2:45 PM CDT Type 2 diabetes mellitus without complication, unspecified whether exterminator helper termite insulin use (HCC) from Last 3 Months or Most Recently Relevant to Health Maintenance Results * (ABNORMAL) POCT glucose (10/02/2024 4:21 PM FIELD SERVICE SUPERVISOR) Glucose, POC 407(H) 70 - 199 mg/dL Comment:Glu2: RN/MD Notified Glucose comment 1 Glu2: RN/MD Notified CHARISSA [facility] Blood 10/02/2024 4:21 PM FIELD SERVICE SUPERVISOR 10/02/2024 4:21 PM FIELD SERVICE SUPERVISOR us Molina Dsouza MD LAB POCT ORDERABLE S - DEVICE Final Result [facility] Department [place] [address] * HIDE HANDLER Evaluate and Treat (FEES) (10/02/2024 1:07 PM FIELD SERVICE SUPERVISOR) Narrative [facility] - 10/02/2024 1:07 PM FIELD SERVICE SUPERVISOR Sondra Dumont, HIDE HANDLER 10/02/2024 3:22 PM Speech-Language Pathology: Flexible Endoscopic Evaluation of Swallowing (FEES) HPI/PMH HPI/PMH: 63 y.o. F with hx of MASH cirrhosis and CKD currently listed for a simultaneous liver-kidney transplant (SLK), HTN, T2DM, atrial flutter, and ERNESTINE who presented to [facility] 09/24 as an OSH transfer for AMS. Pt was reportedly at baseline until 04009/24 when EMS was called to her home as patient was found confused by her . Pt was initially brought to OSH ED, transferred to [facility] ED as she is an active liver [...] diet/thin liquid General Information Nael Levine 10/02/24 HIDE HANDLER Received On: 10/02/24 General Observations: Pt seen [...] deficits Secretions: Minimal Consistencies Administered: Thin liquids, [place] thick liquids, Honey thick liquids, Purees, Solids Thin Liquids: Laryngeal Penetration: Present Aspiration Present: Yes Timing: Before, During Amount: Moderate Response to aspiration: None Cough: Non-productive Unsuccessful Modifications: Chin tuck, Cough, Repeat swallow Penetration Aspiration Scale-Thin: 8-Material enters the airway, passes below the vocal folds and no effort is made to eject [place] Scale-Vallecular Residue-Thin Liquids: Moderate [place] Scale-Pyriform Sinus Residue-Thin Liquids: Mild [place] Thickened Liquids: Laryngeal Penetration: Present Aspiration Present: Yes Timing: Before, During Amount: Trace Response to aspiration: None Unsuccessful Modifications: Repeat swallow, Cough, Chin tuck Penetration Aspiration Scale-[place]: 8-Material enters the airway, passes below the vocal folds and no effort is made to eject Zari Scale-Vallecular Residue-[place] Thickened Liquids: Mild Zari Scale-Pyriform Sinus Residue-[place] Thickened Liquids: None Honey Thickened Liquids: Laryngeal Penetration: None Aspiration Present: No Penetration Aspiration Scale-Honey: 1-Material does not enter airway [place] Scale-Vallecular Residue-Honey Thickened Liquids: None [place] Scale-Pyriform Sinus Residue-Honey Thickened Liquids: None Purees: Laryngeal Penetration: None Aspiration Present: No Penetration Aspiration Scale-Puree: 1-Material does not enter airway [place] Scale-Vallecular Residue-Puree: None Zari Scale-Pyriform Sinus Residue-Puree: Trace Solids: Laryngeal Penetration: None Aspiration Present: No Successful Modifications: Repeat swallow Penetration Aspiration Scale-Solids: 1-Material does not enter airway Zari Scale-Vallecular Residue-Solids: Mild [place] Scale-Pyriform Sinus Residue-Solids: None Dysphagia Outcome and Severity Scale: Dysphagia Outcomes and Severity Scale: 4 Mild/Moderate dysphagia Levels 1 & 2 on the ALEJANDRINA indicate need for nonoral nutrition. Treatment Treatment was not provided this date. Please reference care plan for treatment goals and details, if indicated. Plan HIDE HANDLER Frequency of Services during current admission: 3-5x/wk HIDE HANDLER Recommendation (Add'l Services): Inpatient Rehab Facility Next Visit Plan:treatment/therapy Additional Referrals: PT/OT Discharge Summary Statement If this is the last swallow therapy visit, this serves as the discharge summary. us Molina Dsouza MD HIDE HANDLER ORDERABLES Fi nal Result [facility] * (ABNORMAL) POCT glucose (10/02/2024 11:33 AM FIELD SERVICE SUPERVISOR) Glucose, POC 373(H) 70 - 199 mg/dL Comment:Glu2: RN/ Notified Glucose comment 1 Glu2: RN/ Notified [facility] Blood 10/02/2024 11:3 3 AM FIELD SERVICE SUPERVISOR 10/02/2024 11:33 AM FIELD SERVICE SUPERVISOR us Molina Dsouza MD LAB POCT ORDERABLE S - DEVICE Final Result Performing Organization Address [facility] [place] [address] * (ABNORMAL) POCT glucose (10/02/2024 7:14 AM FIELD SERVICE SUPERVISOR) Glucose, POC 215(H) 70 - 199 mg/dL Comment:Glu2: RN/ Notified Glucose comment 1 Glu2: RN/ Notified [facility] Blood 10/02/2024 7:14 AM FIELD SERVICE SUPERVISOR 10/02/2024 7:14 AM FIELD SERVICE SUPERVISOR us Molina Dsouza MD LAB POCT ORDERABLE S - DEVICE Final Result Performing Organization Address [facility] Co de Phone Number [facility] [place] [address] * POCT glucose (10/02/2024 4:19 AM FIELD SERVICE SUPERVISOR) Glucose, POC 194 70 - 199 mg/dL Blood 10/02/2024 4:19 AM FIELD SERVICE SUPERVISOR 10/02/2024 4:19 AM FIELD SERVICE SUPERVISOR us Molina Dsouza MD LAB POCT ORDERABLE S - DEVICE Final Result Performing Organization Address City/[facility] Co de Phone Number [facility] [place] [place] [address] * (ABNORMAL) eGFR (10/01/2024 9:18 PM FIELD SERVICE SUPERVISOR) eGFR 26(L) >=60 mL/min/1. 73 m2 Comment: [...] last reviewed 2021. Blood 10/01/2024 9:18 PM FIELD SERVICE SUPERVISOR 10/01/2024 10:11 PM FIELD SERVICE SUPERVISOR us Najma Pires MD LAB BLOOD ORDERABLES Final Result [facility] Department [place] [address] * (ABNORMAL) Protime-INR (10/01/2024 9:18 PM FIELD SERVICE SUPERVISOR) PT 17.6(H) 9.7 - 13.0 sec INR 1.61(H) 0.90 - 1.20 CHARISSA [facility]NE Comment: Interpretive data Oral anticoagulant therapeutic ranges: Venous thromboembolism prophylaxis or treatment: 2.0-3.0 CARDIOLOGY Standard range: 2.0-3.0 High-intensity range: 2.5-3.5 Refer to indication-specific guidelines for appropriate target ranges for prosthetic heart valve replacement. Current interpretive data was last revised on 2019. Blood 10/01/2024 9:18 PM FIELD SERVICE SUPERVISOR 10/01/2024 10:12 PM FIELD SERVICE SUPERVISOR us Stuart Flores MD LAB BLOOD ORDERABLES Final Resul t Performing Organization Address City/[facility] [place] [address] * Phosphorus (10/01/2024 9:18 PM FIELD SERVICE SUPERVISOR) Phosphorus, pl 2.4 2.3 - 4.5 mg/dL Blood 10/01/2024 9:18 PM FIELD SERVICE SUPERVISOR 10/01/2024 10:11 PM FIELD SERVICE SUPERVISOR us Stuart Flores MD LAB BLOOD ORDERABLES Final Resul t Performing Organization Address [facility] [place] [address] * Magnesium (10/01/2024 9:18 PM FIELD SERVICE SUPERVISOR) Pathologist [facility] Magnesium 2.1 1.4 - 2.5 mg/dL Blood 10/01/2024 9:18 PM FIELD SERVICE SUPERVISOR 10/01/2024 10:11 PM FIELD SERVICE SUPERVISOR us Stuart Flores MD LAB BLOOD ORDERABLES Final Resul t Performing Organization Address [facility] Co de Phone Number [facility] [place] [address] * (ABNORMAL) Comprehensive metabolic panel (10/01/2024 9:18 PM FIELD SERVICE SUPERVISOR) Sodium 140 135 - 145 mmol/L Potassium, pl 3.5 3.3 - 4.9 mmol/L [facility] Chloride 97 97 - 110 mmol/L [facility] CO2 28 22 - 32 mmol/L [facility] Anion gap 15 2 - 15 mmol/L [facility] BUN 50(H) 6 - 25 mg/dL [facility] Creatinine 2.12(H) 0.60 - 1.10 mg/dL [facility] Glucose 315(H) 70 - 199 mg/dL [facility] Comment: Interpretive Data Fasting glucose >/= 126 [...] 2022. Calcium 10.2 8.5 - 10.3 mg/dL [facility] Bilirubin, total 4.0(H) 0.1 - 1.2 mg/dL [facility] Protein, pl 7.1 6.5 - 8.5 g/dL [facility] Albumin 4.6 3.5 - 5.0 g/dL [facility] Alk phos 70 40 - 130 Units/L [facility] ALT 28 7 - 45 Units/L [facility] AST 54(H) 10 - 45 Units/L [facility] Blood 10/01/2024 9:18 PM FIELD SERVICE SUPERVISOR 10/01/2024 10:11 PM FIELD SERVICE SUPERVISOR us Najma Pires MD LAB BLOOD ORDERABLES Final Result Performing Organization Address City/[facility]/ZIP Co de Phone Number [facility] Department [place] [address] * (ABNORMAL) POCT glucose (10/01/2024 7:35 PM FIELD SERVICE SUPERVISOR) [facility] Glucose, POC 295(H) 70 - 199 mg/dL Blood 10/01/2024 7:35 PM FIELD SERVICE SUPERVISOR 10/01/2024 7:35 PM FIELD SERVICE SUPERVISOR us Molina Dsouza MD LAB POCT ORDERABLE S - DEVICE Final Result Performing Organization Address City/[facility]/ZIP Co [place] [address] * (ABNORMAL) POCT glucose (10/01/2024 7:34 PM FIELD SERVICE SUPERVISOR) Glucose, POC 361(H) 70 - 199 mg/dL Blood 10/01/2024 7:34 PM FIELD SERVICE SUPERVISOR 10/01/2024 7:34 PM FIELD SERVICE SUPERVISOR us Molina Dsouza MD LAB POCT ORDERABLE S - DEVICE Final Result Performing Organization Address City/[facility] [place] [address] * (ABNORMAL) POCT glucose (10/01/2024 5:12 PM FIELD SERVICE SUPERVISOR) Glucose, POC 281(H) 70 - 199 mg/dL Blood 10/01/2024 5:12 PM FIELD SERVICE SUPERVISOR 10/01/2024 5:12 PM FIELD SERVICE SUPERVISOR Molina Dsouza MD LAB POCT ORDERABLE S - DEVICE Final Result Performing Organization Address [facility] [place] [address] * (ABNORMAL) POCT glucose (10/01/2024 11:45 AM FIELD SERVICE SUPERVISOR) Glucose, POC 262(H) 70 - 199 mg/dL Blood 10/01/2024 11:4 5 AM FIELD SERVICE SUPERVISOR 10/01/2024 11:45 AM FIELD SERVICE SUPERVISOR us Molina Dsouza MD LAB POCT ORDERABLE S - DEVICE Final Result Performing Organization Address [facility] [place] [address] * POCT glucose (10/01/2024 7:45 AM FIELD SERVICE SUPERVISOR) Glucose, POC 176 70 - 199 mg/dL Blood 10/01/2024 7:45 AM FIELD SERVICE SUPERVISOR 10/01/2024 7:45 AM FIELD SERVICE SUPERVISOR Molina Dsouza MD LAB POCT ORDERABLE S - DEVICE Final Result Performing Organization Address City/[facility] Co de Phone Number CHARISSA [facility] Department [place] [address] * (ABNORMAL) eGFR (09/30/2024 9:22 PM FIELD SERVICE SUPERVISOR) Pathologist [facility] eGFR 23(L) >=60 mL/min/1. 73 m2 Comment: [...] last reviewed 2021. Blood 09/30/2024 9:22 PM FIELD SERVICE SUPERVISOR 09/30/2024 11:32 PM FIELD SERVICE SUPERVISOR us Najma Pires MD LAB BLOOD ORDERABLES Final Result Performing Organization Address City/[facility]/ZIP Co de Phone Number CHARISSA [facility] Department [place] [address] * (ABNORMAL) Differential, auto (09/30/2024 9:22 PM FIELD SERVICE SUPERVISOR) Neutrophil abs 3.3 1.5 - 6.5 K/cumm Imm gran abs 0.0 0.0 - 0.1 K/cumm [facility] Lymphocyte abs 1.1 0.8 - 3.3 K/cumm [facility] Monocyte abs 0.7 0.2 - 0.8 K/cumm [facility] Eosinophil abs 0.7(H) 0.0 - 0.5 K/cumm [facility] Basophil abs 0.0 0.0 - 0.1 K/cumm [facility] Neutrophil pct 56.5 % [facility] Comment: Interpretive Data Percent cell count reference ranges are not reported, since discordance with absolute values may lead to misinterpretation of CBC data. Current Interpretive Data was last revised on 2017. Imm gran pct 0.5 % [facility] Comment: Interpretive Data Percent cell count reference ranges are not reported, since discordance with absolute values may lead to misinterpretation of CBC data. Current Interpretive Data was last revised on 2017. Lymphocyte pct 18.8 % [facility] Comment: Interpretive Data Percent cell count reference ranges are not reported, since discordance with absolute values may lead to misinterpretation of CBC data. Current Interpretive Data was last revised on 2017. Monocyte pct 11.7 % [facility] Comment: Interpretive Data Percent cell count reference ranges are not reported, since discordance with absolute values may lead to misinterpretation of CBC data. Current Interpretive Data was last revised on 2017. Eosinophil pct 12.0 % [facility] Comment: Interpretive Data Percent cell count reference ranges are not reported, since discordance with absolute values may lead to misinterpretation of CBC data. Current Interpretive Data was last revised on 2017. Basophil pct 0.5 % [facility] Comment: Interpretive Data Percent cell count reference ranges are not reported, since discordance with absolute values may lead to misinterpretation of CBC data. Current Interpretive Data was last revised on 2017. Blood 09/30/2024 9:22 PM FIELD SERVICE SUPERVISOR 09/30/2024 11:33 PM FIELD SERVICE SUPERVISOR us Molina Dsouza MD LAB BLOOD ORDERABL ES Final Result Performing Organization Address [facility] Co de Phone Number [facility] Department [place] [address] * (ABNORMAL) CBC with auto differential (09/30/2024 9:22 PM FIELD SERVICE SUPERVISOR) Pathologist [facility] WBC 5.9 3.8 - 9.9 K/cumm Hgb 11.7(L) 11.9 - 15.5 g/dL [facility] Hct 35.1(L) 35.6 - 45.5 % [facility] Plt 50(L) 150 - 400 K/cumm [facility] MPV 12.5(H) 9.1 - 12.3 fL [facility] RBC 3.67(L) 3.90 - 5.20 M/cumm [facility] MCV 95.6 81.3 - 96.4 fL [facility] MCH 31.9 27.1 - 33.3 pg [facility] MCHC 33.3 32.3 - 35.7 g/dL [facility] RDW CV 14.7 11.1 - 14.9 % [facility] RDW SD 50.5(H) 35.7 - 48.1 fL [facility] NRBC abs 0.00 0.00 - 0.01 K/cumm [facility] HEALTH Blood 09/30/2024 9:22 PM FIELD SERVICE SUPERVISOR 09/30/2024 11:33 PM FIELD SERVICE SUPERVISOR Molina Dsouza MD LAB BLOOD ORDERABL ES Final Result [facility] Department [place] [address] * Vitamin D 25 hydroxy (09/30/2024 9:22 PM FIELD SERVICE SUPERVISOR) Pathologist [facility] Vitamin D 25-OH 33 30 - 80 ng/mL Blood 09/30/2024 9:22 PM FIELD SERVICE SUPERVISOR 09/30/2024 11:34 PM FIELD SERVICE SUPERVISOR Molina Dsouza MD LAB BLOOD ORDERABL ES Final Result Performing Organization Address City/[facility]/ZIP Co de Phone Number [facility] [place] [address] * (ABNORMAL) Protime-INR (09/30/2024 9:22 PM FIELD SERVICE SUPERVISOR) Pathologist [facility] PT 16.9(H) 9.7 - 13.0 sec INR 1.55(H) 0.90 - 1.20 [facility] Comment: Interpretive data Oral anticoagulant therapeutic ranges: Venous thromboembolism prophylaxis or treatment: 2.0-3.0 CARDIOLOGY Standard range: 2.0-3.0 High-intensity range: 2.5-3.5 Refer to indication-specific guidelines for appropriate target ranges for prosthetic heart valve replacement. Current interpretive data was last revised on 2019. Blood 09/30/2024 9:22 PM FIELD SERVICE SUPERVISOR 09/30/2024 11:33 PM FIELD SERVICE SUPERVISOR us Stuart Flores MD LAB BLOOD ORDERABLES Final Resul t Performing Organization Address City/[facility]/ZIP Co de Phone Number [facility] [place] [address] * (ABNORMAL) Phosphorus (09/30/2024 9:22 PM FIELD SERVICE SUPERVISOR) [facility] Phosphorus, pl 2.2(L) 2.3 - 4.5 mg/dL Blood 09/30/2024 9:22 PM FIELD SERVICE SUPERVISOR 09/30/2024 11:32 PM FIELD SERVICE SUPERVISOR Stuart Flores MD LAB BLOOD ORDERABLES Final Resul t Performing Organization Address City/[facility]/[place] [address] * PTH (09/30/2024 9:22 PM FIELD SERVICE SUPERVISOR) [facility] PTH 27 15 - 65 pg/mL Blood 09/30/2024 9:22 PM FIELD SERVICE SUPERVISOR 09/30/2024 11:34 PM FIELD SERVICE SUPERVISOR Molina Dsouza MD LAB BLOOD ORDERABL ES Final Result Performing Organization Address City/[facility]/ZIP Co de Phone Number [facility] [place] [address] * Magnesium (09/30/2024 9:22 PM FIELD SERVICE SUPERVISOR) Pathologist [facility] Magnesium 2.5 1.4 - 2.5 mg/dL Blood 09/30/2024 9:22 PM FIELD SERVICE SUPERVISOR 09/30/2024 11:32 PM FIELD SERVICE SUPERVISOR Stuart Flores MD LAB BLOOD ORDERABLES Final Resul t Performing Organization Address [facility] de Phone Number [facility] [place] [address] * (ABNORMAL) Comprehensive metabolic panel (09/30/2024 9:22 PM FIELD SERVICE SUPERVISOR) Sodium 147(H) 135 - 145 mmol/L Potassium, pl 3.8 3.3 - 4.9 mmol/L [facility] Chloride 102 97 - 110 mmol/L [facility] CO2 31 22 - 32 mmol/L [facility] Anion gap 14 2 - 15 mmol/L [facility] BUN 46(H) 6 - 25 mg/dL [facility] Creatinine 2.31(H) 0.60 - 1.10 mg/dL [facility] Glucose 262(H) 70 - 199 mg/dL [facility] Comment: Interpretive Data Fasting glucose >/= 126 [...] 2022. Calcium 10.8(H) 8.5 - 10.3 mg/dL [facility] Bilirubin, total 3.7(H) 0.1 - 1.2 mg/dL [facility] Protein, pl 7.6 6.5 - 8.5 g/dL [facility] Albumin 5.2(H) 3.5 - 5.0 g/dL [facility] Alk phos 74 40 - 130 Units/L [facility] ALT 24 7 - 45 Units/L [facility] AST 45 10 - 45 Units/L [facility] Blood 09/30/2024 9:22 PM FIELD SERVICE SUPERVISOR 09/30/2024 11:32 PM FIELD SERVICE SUPERVISOR us Najma Pires MD LAB BLOOD ORDERABLES Final Result Performing Organization Address [facility] Co de Phone Number [facility] [place] [address] * (ABNORMAL) POCT glucose (09/30/2024 7:58 PM FIELD SERVICE SUPERVISOR) Glucose, POC 277(H) 70 - 199 mg/dL Comment:Glu2: RN/MD Notified Glucose comment 1 Glu2: RN/MD Notified [facility] Blood 09/30/2024 7:58 PM FIELD SERVICE SUPERVISOR 09/30/2024 7:58 PM FIELD SERVICE SUPERVISOR us Molina Dsouza MD LAB POCT ORDERABLE S - DEVICE Final Result Performing Organization Address City/[facility]/ZIP Co de Phone Number [facility] [place] [place] [address] * POCT glucose (09/30/2024 4:20 PM FIELD SERVICE SUPERVISOR) Glucose, POC 183 70 - 199 mg/dL Blood 09/30/2024 4:20 PM FIELD SERVICE SUPERVISOR 09/30/2024 4:20 PM FIELD SERVICE SUPERVISOR us Molina Dsouza MD LAB POCT ORDERABLE S - DEVICE Final Result Performing Organization Address [facility] de Phone Number [facility] [place] [address] * POCT glucose (09/30/2024 11:43 AM FIELD SERVICE SUPERVISOR) Glucose, POC 193 70 - 199 mg/dL Blood 09/30/2024 11:4 3 AM FIELD SERVICE SUPERVISOR 09/30/2024 11:43 AM FIELD SERVICE SUPERVISOR us Molina Dsouza MD LAB POCT ORDERABLE S - DEVICE Final Result Performing Organization Address [facility] Phone Number [facility] [place] [address] * POCT glucose (09/30/2024 7:54 AM FIELD SERVICE SUPERVISOR) Glucose, POC 171 70 - 199 mg/dL Blood 09/30/2024 7:54 AM FIELD SERVICE SUPERVISOR 09/30/2024 7:54 AM FIELD SERVICE SUPERVISOR us Molina Dsouza MD LAB POCT ORDERABLE S - DEVICE Final Result Performing Organization Address [facility] de Phone Number [facility] [place] [place] [address] * POCT glucose (09/30/2024 7:36 AM FIELD SERVICE SUPERVISOR) Glucose, POC 170 70 - 199 mg/dL Blood 09/30/2024 7:36 AM FIELD SERVICE SUPERVISOR 09/30/2024 7:36 AM FIELD SERVICE SUPERVISOR us Molina Dsouza MD LAB POCT ORDERABLE S - DEVICE Final Result Performing Organization Address [facility] de Phone Number [facility] [place] [address] * POCT glucose (09/30/2024 12:28 AM FIELD SERVICE SUPERVISOR) Glucose, POC 181 70 - 199 mg/dL Blood 09/30/2024 12:2 8 AM FIELD SERVICE SUPERVISOR 09/30/2024 12:28 AM FIELD SERVICE SUPERVISOR us Molina Dsouza MD LAB POCT ORDERABLE S - DEVICE [place] [address] * (ABNORMAL) eGFR (09/29/2024 8:49 PM FIELD SERVICE SUPERVISOR) Pathologist [facility] eGFR 22(L) >=60 mL/min/1. 73 m2 Comment: [...] last reviewed 2021. Blood 09/29/2024 8:49 PM FIELD SERVICE SUPERVISOR 09/29/2024 10:02 PM FIELD SERVICE SUPERVISOR us Najma Pires MD LAB BLOOD ORDERABLES Final Result [facility] [place] [address] * (ABNORMAL) Protime-INR (09/29/2024 8:49 PM FIELD SERVICE SUPERVISOR) PT 16.0(H) 9.7 - 13.0 sec INR 1.47(H) 0.90 - 1.20 [facility] Comment: Interpretive data Oral anticoagulant therapeutic ranges: Venous thromboembolism prophylaxis or treatment: 2.0-3.0 CARDIOLOGY Standard range: 2.0-3.0 High-intensity range: 2.5-3.5 Refer to indication-specific guidelines for appropriate target ranges for prosthetic heart valve replacement. Current interpretive data was last revised on 2019. Blood 09/29/2024 8:49 PM FIELD SERVICE SUPERVISOR 09/29/2024 10:00 PM FIELD SERVICE SUPERVISOR Result Anitha Flores MD LAB BLOOD ORDERABLES Final Resul t Performing Organization Address [facility] de Phone Number [facility] Department [place] [address] * (ABNORMAL) Phosphorus (09/29/2024 8:49 PM FIELD SERVICE SUPERVISOR) Pathologist [facility] Phosphorus, pl 1.6(L) 2.3 - 4.5 mg/dL Blood 09/29/2024 8:49 PM FIELD SERVICE SUPERVISOR 09/29/2024 10:02 PM FIELD SERVICE SUPERVISOR us Stuart Flores MD LAB BLOOD ORDERABLES Final Resul t Performing Organization Address City/[facility] de Phone Number [facility] Department [place] [address] * (ABNORMAL) Magnesium (09/29/2024 8:49 PM FIELD SERVICE SUPERVISOR) Pathologist [facility] Magnesium 2.8(H) 1.4 - 2.5 mg/dL Blood 09/29/2024 8:49 PM FIELD SERVICE SUPERVISOR 09/29/2024 10:02 PM FIELD SERVICE SUPERVISOR us Stuart Flores MD LAB BLOOD ORDERABLES Final Resul t [facility] Department [place] [address] * (ABNORMAL) Comprehensive metabolic panel (09/29/2024 8:49 PM FIELD SERVICE SUPERVISOR) Sodium 141 135 - 145 mmol/L Potassium, pl 3.5 3.3 - 4.9 mmol/L [facility] Chloride 100 97 - 110 mmol/L [facility] CO2 29 22 - 32 mmol/L [facility] Anion gap 12 2 - 15 mmol/L [facility] BUN 56(H) 6 - 25 mg/dL [facility] Creatinine 2.41(H) 0.60 - 1.10 mg/dL [facility] Glucose 241(H) 70 - 199 mg/dL [facility] Comment: Interpretive Data Fasting glucose >/= 126 [...] 2022. Calcium 10.9(H) 8.5 - 10.3 mg/dL [facility] Bilirubin, total 3.4(H) 0.1 - 1.2 mg/dL [facility] Protein, pl 7.5 6.5 - 8.5 g/dL [facility] Albumin 5.0 3.5 - 5.0 g/dL [facility] Alk phos 79 40 - 130 Units/L [facility] ALT 19 7 - 45 Units/L [facility] AST 38 10 - 45 Units/L [facility] Blood 09/29/2024 8:49 PM FIELD SERVICE SUPERVISOR 09/29/2024 10:02 PM FIELD SERVICE SUPERVISOR us Najma Pires MD LAB BLOOD ORDERABLES Final Result Performing Organization Address City/[facility] Co de Phone Number [facility] [place] [address] * (ABNORMAL) POCT glucose (09/29/2024 8:08 PM FIELD SERVICE SUPERVISOR) Glucose, POC 225(H) 70 - 199 mg/dL Blood 09/29/2024 8:08 PM FIELD SERVICE SUPERVISOR 09/29/2024 8:08 PM FIELD SERVICE SUPERVISOR us Molina Dsouza MD LAB POCT ORDERABLE S - DEVICE Final Result Performing Organization Address [facility] Co de Phone Number [facility] [address] * (ABNORMAL) POCT glucose (09/29/2024 4:50 PM FIELD SERVICE SUPERVISOR) Glucose, POC 236(H) 70 - 199 mg/dL Blood 09/29/2024 4:50 PM FIELD SERVICE SUPERVISOR 09/29/2024 4:50 PM FIELD SERVICE SUPERVISOR us Molina Dsouza MD LAB POCT ORDERABLE S - DEVICE Final Result Performing Organization Address [facility] Co de Phone Number [facility] [place] [address] * (ABNORMAL) POCT glucose (09/29/2024 11:35 AM FIELD SERVICE SUPERVISOR) Glucose, POC 230(H) 70 - 199 mg/dL Blood 09/29/2024 11:3 5 AM FIELD SERVICE SUPERVISOR 09/29/2024 11:35 AM FIELD SERVICE SUPERVISOR us Molina Dsouza MD LAB POCT ORDERABLE S - DEVICE Final Result Performing Organization Address City/[facility] Co de Phone Number [facility] [address] * HIDE HANDLER Evaluate and Treat (FEES) (09/29/2024 10:55 AM FIELD SERVICE SUPERVISOR) Diane KENNEDY - 09/29/2024 10:55 AM FIELD SERVICE SUPERVISOR Marina Ty, HIDE HANDLER 09/29/2024 3:25 PM Speech-Language Pathology: Flexible Endoscopic Evaluation of Swallowing (FEES) HPI/PMH 63 y.o. F with hx of LYONS cirrhosis and CKD currently listed for a simultaneous liver-kidney transplant (SLK), HTN, T2DM, atrial flutter, and ERNESTINE who presented to [facility] 09/24 as an OSH transfer for AMS. Pt was reportedly at baseline until 09/24 when EMS was called to her home as patient was found confused by her . Pt was initially brought to OSH ED, transferred to [facility] ED as she is an active liver transplant patient. EGD October 2022 w/o EV. #AMS, likely hepatic encephalopathy, improving Respiratory/Intubation Status: RA Imaging: CT Abdomen/Pelvis 09/26- New right lower lobe 8 mm pulmonary nodule. CXR 09/24- Lungs are clear. No pleural effusion or pneumothorax. Neuro Outside CT 09/24- No acute intracranial abnormality. Precautions: fall, ERNESTINE PLOF: CSE at [facility] on 08/02/2022 recommending regular solids with thin liquids, meds with puree, full supervision with meals, limit distractions Current Diet Order:npo, ice chips for pleasure pending fees Baseline Diet: reports regular diet General Information Nael Levine 09/29/24 HIDE HANDLER Received On: 09/29/24 General Observations: Seen sitting upright in bed, pleasant and cooperative, functional voicing with slurred speech. Pain Score: 0 - No pain If pain >4, was RN notified? None Observed Patient Stated Goal/Comments: to start eating again Clinical Impression & Professional Recommendations Diet Solids Recommendation: Regular Diet Liquids Recommendations: [place] thick Recommended Form of Medications: As tolerated [...] deficits Secretions: Minimal Consistencies Administered: Thin liquids, [place] thick liquids, Purees, Solids (with green food [...] Trace Zari Scale-Pyriform Sinus Residue-Thin Liquids: Trace [place] Thickened Liquids: Laryngeal Penetration: None Aspiration Present: No Penetration Aspiration Scale-[place]: 1-Material does not enter airway [place] Scale-Vallecular Residue-[place] Thickened Liquids: Trace [place] Scale-Pyriform Sinus Residue-[place] Thickened Liquids: Trace Honey Thickened Liquids: Purees: Laryngeal Penetration: None Aspiration Present: No Penetration Aspiration Scale-Puree: 1-Material does not enter airway [place] Scale-Vallecular Residue-Puree: Trace Zari Scale-Pyriform Sinus Residue-Puree: Trace Solids: Laryngeal Penetration: None Aspiration Present: No Penetration Aspiration Scale-Solids: 1-Material does not enter airway Zari Scale-Vallecular Residue-Solids: Moderate Zari Scale-Pyriform Sinus Residue-Solids: Moderate Dysphagia Outcome and Severity Scale: Dysphagia Outcomes and Severity Scale: 5 Mild dysphagia Levels 1 & 2 on the ALEJANDRINA indicate need for nonoral nutrition. Treatment Treatment was not provided this date. Please reference care plan for treatment goals and details, if indicated. Plan HIDE HANDLER Frequency of Services during current admission: 1-2x/wk HIDE HANDLER Recommendation (Add'l Services): Defer at this time Next Visit Plan:treatment/therapy and repeat instrumental evaluation 3-5 days Additional Referrals: none at this time Discharge Summary Statement If this is the last swallow therapy visit, this serves as the discharge summary. us Molina Dsouza MD HIDE HANDLER ORDERABLES Fi nal Result [facility] * HIDE HANDLER Evaluate and Treat (VFSS) (09/29/2024 10:55 AM FIELD SERVICE SUPERVISOR) Narrative Marina Ty, HIDE HANDLER - 09/29/2024 10:55 AM FIELD SERVICE SUPERVISOR Marina Ty, HIDE HANDLER 09/29/2024 3:25 PM Speech-Language Pathology: Flexible Endoscopic Evaluation of Swallowing (FEES) HPI/PMH 63 y.o. F with hx of LYONS cirrhosis and CKD currently listed for a simultaneous liver-kidney transplant (SLK), HTN, T2DM, atrial flutter, and ERNESTINE who presented to [facility] 09/24 as an OSH transfer for AMS. Pt was reportedly at baseline until 0400 09/24 when EMS was called to her home as patient was found confused by her . Pt was initially brought to OSH ED, transferred to [facility] ED as she is an active liver transplant patient. EGD October 2022 w/o EV. #AMS, likely hepatic encephalopathy, improving Respiratory/Intubation Status: RA Imaging: CT Abdomen/Pelvis 09/26- New right lower lobe 8 mm pulmonary nodule. CXR 09/24- Lungs are clear. No pleural effusion or pneumothorax. Neuro Outside CT 09/24- No acute intracranial abnormality. Precautions: fall, ERNESTINE PLOF: CSE at [facility] on 08/02/2022 recommending regular solids with thin liquids, meds with puree, full supervision with meals, limit distractions Current Diet Order:npo, ice chips for pleasure pending fees Baseline Diet: reports regular diet General Information Nael Patel Chiragsalina 09/29/24 HIDE HANDLER Received On: 09/29/24 General Observations: Seen sitting upright in bed, pleasant and cooperative, functional voicing with slurred speech. Pain Score: 0 - No pain If pain >4, was RN notified? None Observed Patient Stated Goal/Comments: to start eating again Clinical Impression & Professional Recommendations Diet Solids Recommendation: Regular Diet Liquids Recommendations: [place] thick Recommended Form of Medications: As tolerated [...] deficits Secretions: Minimal Consistencies Administered: Thin liquids, [place] thick liquids, Purees, Solids (with green food coloring) Thin Liquids: Laryngeal Penetration: Present Aspiration Present: Yes Timing: Before Amount: Trace Response to aspiration: Throat clearing, None Cough: Non-productive Unsuccessful Modifications: Other (comment) (bolus hold) Penetration Aspiration Scale-Thin: 8-Material enters the airway, passes below the vocal folds and no effort is made to eject [place] Scale-Vallecular Residue-Thin Liquids: Trace Zari Scale-Pyriform Sinus Residue-Thin Liquids: Trace [place] Thickened Liquids: Laryngeal Penetration: None Aspiration Present: No Penetration Aspiration Scale-[place]: 1-Material does not enter airway Zari Scale-Vallecular Residue-[place] Thickened Liquids: Trace [place] Scale-Pyriform Sinus Residue-[place] Thickened Liquids: Trace Honey Thickened Liquids: Purees: Laryngeal Penetration: None Aspiration Present: No Penetration Aspiration Scale-Puree: 1-Material does not enter airway Zari Scale-Vallecular Residue-Puree: Trace Zari Scale-Pyriform Sinus Residue-Puree: Trace Solids: Laryngeal Penetration: None Aspiration Present: No Penetration Aspiration Scale-Solids: 1-Material does not enter airway [place] Scale-Vallecular Residue-Solids: Moderate [place] Scale-Pyriform Sinus Residue-Solids: Moderate Dysphagia Outcome and Severity Scale: Dysphagia Outcomes and Severity Scale: 5 Mild dysphagia Levels 1 & 2 on the ALEJANDRINA indicate need for nonoral nutrition. Treatment Treatment was not provided this date. Please reference care plan for treatment goals and details, if indicated. Plan HIDE HANDLER Frequency of Services during current admission: 1-2x/wk HIDE HANDLER Recommendation (Add'l Services): Defer at this time Next Visit Plan:treatment/therapy and repeat instrumental evaluation 3-5 days Additional Referrals: none at this time Discharge Summary Statement If this is the last swallow therapy visit, this serves as the discharge summary. us Molina Dsouza MD HIDE HANDLER ORDERABLES Fi nal Result * POCT glucose (09/29/2024 7:34 AM FIELD SERVICE SUPERVISOR) Glucose, POC 185 70 - 199 mg/dL Blood 09/29/2024 7:34 AM FIELD SERVICE SUPERVISOR 09/29/2024 7:34 AM FIELD SERVICE SUPERVISOR us Molina Dsouza MD LAB POCT ORDERABLE S - DEVICE Final Result [facility] Department [place] [address] * (ABNORMAL) POCT glucose (09/29/2024 4:49 AM FIELD SERVICE SUPERVISOR) Pathologist [facility] Glucose, POC 203(H) 70 - 199 mg/dL Comment:Glu2: RN/MD Notified Glucose comment 1 Glu2: RN/MD Notified CHARISSA [facility] Blood 09/29/2024 4:49 AM FIELD SERVICE SUPERVISOR 09/29/2024 4:49 AM FIELD SERVICE SUPERVISOR Molina Dsouza MD LAB POCT ORDERABLE S - DEVICE Final Result Performing Organization Address City/[facility]/ZIP Co de Phone Number [facility] [place] [place] [address] * POCT glucose (09/29/2024 12:25 AM FIELD SERVICE SUPERVISOR) [facility] Glucose, POC 179 70 - 199 mg/dL Blood 09/29/2024 12:2 5 AM FIELD SERVICE SUPERVISOR 09/29/2024 12:25 AM FIELD SERVICE SUPERVISOR Molina Dsouza MD LAB POCT ORDERABLE S - DEVICE Final Result [facility] [place] [address] * (ABNORMAL) eGFR (09/28/2024 9:17 PM FIELD SERVICE SUPERVISOR) [facility] eGFR 21(L) >=60 mL/min/1. 73 m2 Comment: [...] last reviewed 2021. Blood 09/28/2024 9:17 PM FIELD SERVICE SUPERVISOR 09/28/2024 10:40 PM FIELD SERVICE SUPERVISOR us Najma Pires MD LAB BLOOD ORDERABLES Final Result [facility] Department [place] [address] * (ABNORMAL) Differential, auto (09/28/2024 9:17 PM FIELD SERVICE SUPERVISOR) Neutrophil abs 3.4 1.5 - 6.5 K/cumm Imm gran abs 0.0 0.0 - 0.1 K/cumm [facility] Lymphocyte abs 1.2 0.8 - 3.3 K/cumm [facility] Monocyte abs 0.9(H) 0.2 - 0.8 K/cumm [facility] Eosinophil abs 0.9(H) 0.0 - 0.5 K/cumm [facility] Basophil abs 0.0 0.0 - 0.1 K/cumm [facility] Neutrophil pct 52.8 % [facility] Comment: Interpretive Data Percent cell count reference ranges are not reported, since discordance with absolute values may lead to misinterpretation of CBC data. Current Interpretive Data was last revised on 2017. Imm gran pct 0.5 % [facility] Comment: Interpretive Data Percent cell count reference ranges are not reported, since discordance with absolute values may lead to misinterpretation of CBC data. Current Interpretive Data was last revised on 2017. Lymphocyte pct 18.2 % [facility] Comment: Interpretive Data Percent cell count reference ranges are not reported, since discordance with absolute values may lead to misinterpretation of CBC data. Current Interpretive Data was last revised on 2017. Monocyte pct 14.5 % [facility] Comment: Interpretive Data Percent cell count reference ranges are not reported, since discordance with absolute values may lead to misinterpretation of CBC data. Current Interpretive Data was last revised on 2017. Eosinophil pct 13.4 % [facility] Comment: Interpretive Data Percent cell count reference ranges are not reported, since discordance with absolute values may lead to misinterpretation of CBC data. Current Interpretive Data was last revised on 2017. Basophil pct 0.6 % [facility] Comment: Interpretive Data Percent cell count reference ranges are not reported, since discordance with absolute values may lead to misinterpretation of CBC data. Current Interpretive Data was last revised on 2017. Blood 09/28/2024 9:17 PM FIELD SERVICE SUPERVISOR 09/28/2024 10:40 PM FIELD SERVICE SUPERVISOR us Najma Pires MD LAB BLOOD ORDERABLES Final Result [facility] Department [place] [address] * (ABNORMAL) CBC with auto differential (09/28/2024 9:17 PM FIELD SERVICE SUPERVISOR) WBC 6.4 3.8 - 9.9 K/cumm Hgb 11.6(L) 11.9 - 15.5 g/dL [facility] Hct 35.4(L) 35.6 - 45.5 % [facility] Plt 62(L) 150 - 400 K/cumm [facility] MPV 11.5 9.1 - 12.3 fL [facility] RBC 3.65(L) 3.90 - 5.20 M/cumm [facility] MCV 97.0(H) 81.3 - 96.4 fL [facility] MCH 31.8 27.1 - 33.3 pg [facility] MCHC 32.8 32.3 - 35.7 g/dL [facility] RDW CV 14.5 11.1 - 14.9 % [facility] RDW SD 51.1(H) 35.7 - 48.1 fL [facility] NRBC abs 0.00 0.00 - 0.01 K/cumm [facility] Blood 09/28/2024 9:17 PM FIELD SERVICE SUPERVISOR 09/28/2024 10:40 PM FIELD SERVICE SUPERVISOR Najma Pires MD LAB BLOOD ORDERABLES Final Result Performing Organization Address [facility] Co de Phone Number [facility] [place] [address] * (ABNORMAL) Protime-INR (09/28/2024 9:17 PM FIELD SERVICE SUPERVISOR) PT 15.4(H) 9.7 - 13.0 sec INR 1.42(H) 0.90 - 1.20 [facility] Comment: Interpretive data Oral anticoagulant therapeutic ranges: Venous thromboembolism prophylaxis or treatment: 2.0-3.0 CARDIOLOGY Standard range: 2.0-3.0 High-intensity range: 2.5-3.5 Refer to indication-specific guidelines for appropriate target ranges for prosthetic heart valve replacement. Current interpretive data was last revised on 2019. Blood 09/28/2024 9:17 PM FIELD SERVICE SUPERVISOR 09/28/2024 10:49 PM FIELD SERVICE SUPERVISOR Stuart Flores MD LAB BLOOD ORDERABLES Final Resul t Performing Organization Address [facility] de Phone Number [facility] [place] [place] [address] * Phosphorus (09/28/2024 9:17 PM FIELD SERVICE SUPERVISOR) Phosphorus, pl 2.3 2.3 - 4.5 mg/dL Blood 09/28/2024 9:17 PM FIELD SERVICE SUPERVISOR 09/28/2024 10:40 PM FIELD SERVICE SUPERVISOR Stuart Flores MD LAB BLOOD ORDERABLES Final Resul t Performing Organization Address [facility] Co de Phone Number [facility] [place] [place] [address] * (ABNORMAL) Magnesium (09/28/2024 9:17 PM FIELD SERVICE SUPERVISOR) Pathologist [facility] Magnesium 2.8(H) 1.4 - 2.5 mg/dL Blood 09/28/2024 9:17 PM FIELD SERVICE SUPERVISOR 09/28/2024 10:40 PM FIELD SERVICE SUPERVISOR Stuart Flores MD LAB BLOOD ORDERABLES Final Resul t Performing Organization Address City/[facility] Co de Phone Number [facility] Department [place] [address] * (ABNORMAL) Hemoglobin A1c (09/28/2024 9:17 PM FIELD SERVICE SUPERVISOR) Pathologist [facility] Hgb A1C 8.5(H) 4.0 - 5.6 % Estimated Average Glucose 197 mg/dL [facility] Blood 09/28/2024 9:17 PM FIELD SERVICE SUPERVISOR 09/28/2024 10:44 PM FIELD SERVICE SUPERVISOR Swapnil Moore MD LAB BLOOD ORDERABLES Fin al Result Performing Organization Address [facility] de Phone Number [facility] Department [place] [address] * (ABNORMAL) Comprehensive metabolic panel (09/28/2024 9:17 PM FIELD SERVICE SUPERVISOR) [facility] Sodium 144 135 - 145 mmol/L Potassium, pl 3.4 3.3 - 4.9 mmol/L [facility] Chloride 101 97 - 110 mmol/L [facility] CO2 29 22 - 32 mmol/L [facility] Anion gap 14 2 - 15 mmol/L [facility] BUN 58(H) 6 - 25 mg/dL [facility] Creatinine 2.53(H) 0.60 - 1.10 mg/dL [facility] Glucose 207(H) 70 - 199 mg/dL [facility] Comment: Interpretive Data Fasting glucose >/= 126 [...] 2022. Calcium 10.6(H) 8.5 - 10.3 mg/dL [facility] Bilirubin, total 2.9(H) 0.1 - 1.2 mg/dL [facility] Protein, pl 7.5 6.5 - 8.5 g/dL [facility] Albumin 4.8 3.5 - 5.0 g/dL [facility] Alk phos 81 40 - 130 Units/L [facility] ALT 20 7 - 45 Units/L [facility] AST 32 10 - 45 Units/L [facility] Blood 09/28/2024 9:17 PM FIELD SERVICE SUPERVISOR 09/28/2024 10:40 PM FIELD SERVICE SUPERVISOR us Najma Pires MD LAB BLOOD ORDERABLES Final Result Performing Organization Address City/[facility]/ZIP Co de Phone Number [facility] [place] [place] [address] * (ABNORMAL) POCT glucose (09/28/2024 7:57 PM FIELD SERVICE SUPERVISOR) [facility] Glucose, POC 203(H) 70 - 199 mg/dL Comment:Glu2: RN/MD Notified Glucose comment 1 Glu2: RN/MD Notified [facility] Blood 09/28/2024 7:57 PM FIELD SERVICE SUPERVISOR 09/28/2024 7:57 PM FIELD SERVICE SUPERVISOR us Molina Dsouza MD LAB POCT ORDERABLE S - DEVICE Final Result Performing Organization Address City/[facility]/ZIP Co de Phone Number [facility] [place] [address] * (ABNORMAL) POCT glucose (09/28/2024 4:31 PM FIELD SERVICE SUPERVISOR) Glucose, POC 218(H) 70 - 199 mg/dL Blood 09/28/2024 4:31 PM FIELD SERVICE SUPERVISOR 09/28/2024 4:31 PM FIELD SERVICE SUPERVISOR us Stuart Flores MD LAB POCT ORDERABLES - DEVICE Fin al Result Performing Organization Address [facility] Co de Phone Number [facility] [place] [place] [address] * (ABNORMAL) POCT glucose (09/28/2024 11:23 AM FIELD SERVICE SUPERVISOR) Glucose, POC 244(H) 70 - 199 mg/dL Blood 09/28/2024 11:2 3 AM FIELD SERVICE SUPERVISOR 09/28/2024 11:23 AM FIELD SERVICE SUPERVISOR us Stuart Flores MD LAB POCT ORDERABLES - DEVICE Fin al Result Performing Organization Address [facility] Co de Phone Number [facility] [place] [place] [address] * (ABNORMAL) POCT glucose (09/28/2024 8:01 AM FIELD SERVICE SUPERVISOR) Glucose, POC 271(H) 70 - 199 mg/dL Blood 09/28/2024 8:01 AM FIELD SERVICE SUPERVISOR 09/28/2024 8:01 AM FIELD SERVICE SUPERVISOR us Stuart Flores MD LAB POCT ORDERABLES - DEVICE Fin al Result Performing Organization Address City/[facility] Co de Phone Number [facility] [place] [address] * (ABNORMAL) POCT glucose (09/28/2024 4:52 AM FIELD SERVICE SUPERVISOR) Glucose, POC 227(H) 70 - 199 mg/dL Blood 09/28/2024 4:52 AM FIELD SERVICE SUPERVISOR 09/28/2024 4:52 AM FIELD SERVICE SUPERVISOR us Stuart Flores MD LAB POCT ORDERABLES - DEVICE Fin al Result Performing Organization Address City/[facility] Co de Phone Number [facility] [place] [address] * (ABNORMAL) POCT glucose (09/28/2024 12:29 AM FIELD SERVICE SUPERVISOR) Glucose, POC 232(H) 70 - 199 mg/dL Blood 09/28/2024 12:2 9 AM FIELD SERVICE SUPERVISOR 09/28/2024 12:29 AM FIELD SERVICE SUPERVISOR us Stuart Flores MD LAB POCT ORDERABLES - DEVICE Fin al Result Performing Organization Address [facility] de Phone Number [facility] [place] [address] * (ABNORMAL) eGFR (09/28/2024 12:06 AM FIELD SERVICE SUPERVISOR) eGFR 15(L) >=60 mL/min/1. 73 m2 Comment: [...] reviewed 2021. Blood 09/28/2024 12:0 6 AM FIELD SERVICE SUPERVISOR 09/28/2024 12:22 AM FIELD SERVICE SUPERVISOR us Najma Pires MD LAB BLOOD ORDERABLES Final Result [facility] Department [place] [address] * (ABNORMAL) Differential, auto (09/28/2024 12:06 AM FIELD SERVICE SUPERVISOR) Neutrophil abs 3.3 1.5 - 6.5 K/cumm Imm gran abs 0.0 0.0 - 0.1 K/cumm [facility] Lymphocyte abs 1.2 0.8 - 3.3 K/cumm [facility] Monocyte abs 1.0(H) 0.2 - 0.8 K/cumm [facility] Eosinophil abs 0.7(H) 0.0 - 0.5 K/cumm [facility] Basophil abs 0.1 0.0 - 0.1 K/cumm [facility] Neutrophil pct 52.8 % [facility] Comment: Interpretive Data Percent cell count reference ranges are not reported, since discordance with absolute values may lead to misinterpretation of CBC data. Current Interpretive Data was last revised on 2017. Imm gran pct 0.5 % [facility] Comment: Interpretive Data Percent cell count reference ranges are not reported, since discordance with absolute values may lead to misinterpretation of CBC data. Current Interpretive Data was last revised on 2017. Lymphocyte pct 19.0 % [facility] Comment: Interpretive Data Percent cell count reference ranges are not reported, since discordance with absolute values may lead to misinterpretation of CBC data. Current Interpretive Data was last revised on 2017. Monocyte pct 15.7 % [facility] Comment: Interpretive Data Percent cell count reference ranges are not reported, since discordance with absolute values may lead to misinterpretation of CBC data. Current Interpretive Data was last revised on 2017. Eosinophil pct 11.2 % [facility] Comment: Interpretive Data Percent cell count reference ranges are not reported, since discordance with absolute values may lead to misinterpretation of CBC data. Current Interpretive Data was last revised on 2017. Basophil pct 0.8 % [facility] Comment: Interpretive Data Percent cell count reference ranges are not reported, since discordance with absolute values may lead to misinterpretation of CBC data. Current Interpretive Data was last revised on 2017. Blood 09/28/2024 12:0 6 AM FIELD SERVICE SUPERVISOR 09/28/2024 12:24 AM FIELD SERVICE SUPERVISOR Najma Pires MD LAB BLOOD ORDERABLES Final Result [facility] Department [place] [address] * (ABNORMAL) CBC with auto differential (09/28/2024 12:06 AM FIELD SERVICE SUPERVISOR) WBC 6.2 3.8 - 9.9 K/cumm Hgb 11.4(L) 11.9 - 15.5 g/dL [facility] Hct 33.7(L) 35.6 - 45.5 % [facility] Plt 64(L) 150 - 400 K/cumm [facility] MPV 11.8 9.1 - 12.3 fL [facility] RBC 3.54(L) 3.90 - 5.20 M/cumm [facility] MCV 95.2 81.3 - 96.4 fL [facility] MCH 32.2 27.1 - 33.3 pg [facility] MCHC 33.8 32.3 - 35.7 g/dL [facility] RDW CV 14.6 11.1 - 14.9 % [facility] RDW SD 50.9(H) 35.7 - 48.1 fL [facility] NRBC abs 0.00 0.00 - 0.01 K/cumm [facility] Blood 09/28/2024 12:0 6 AM FIELD SERVICE SUPERVISOR 09/28/2024 12:24 AM FIELD SERVICE SUPERVISOR Najma Pires MD LAB BLOOD ORDERABLES Final Result Performing Organization Address City/[facility]/ZIP Co de Phone Number [facility] Department [place] [address] * (ABNORMAL) Protime-INR (09/28/2024 12:06 AM FIELD SERVICE SUPERVISOR) Pathologist [facility] PT 16.2(H) 9.7 - 13.0 sec INR 1.49(H) 0.90 - 1.20 [facility] Comment: Interpretive data Oral anticoagulant therapeutic ranges: Venous thromboembolism prophylaxis or treatment: 2.0-3.0 CARDIOLOGY Standard range: 2.0-3.0 High-intensity range: 2.5-3.5 Refer to indication-specific guidelines for appropriate target ranges for prosthetic heart valve replacement. Current interpretive data was last revised on 2019. Blood 09/28/2024 12:0 6 AM FIELD SERVICE SUPERVISOR 09/28/2024 12:35 AM FIELD SERVICE SUPERVISOR Result Anitha Flores MD LAB BLOOD ORDERABLES Final Resul t Performing Organization Address [facility] Co de Phone Number [facility] [place] [address] * Phosphorus (09/28/2024 12:06 AM FIELD SERVICE SUPERVISOR) [facility] Phosphorus, pl 2.5 2.3 - 4.5 mg/dL Blood 09/28/2024 12:0 6 AM FIELD SERVICE SUPERVISOR 09/28/2024 12:22 AM FIELD SERVICE SUPERVISOR us Stuart Flores MD LAB BLOOD ORDERABLES Final Resul t Performing Organization Address City/State/[facility] [place] [address] * (ABNORMAL) Magnesium (09/28/2024 12:06 AM FIELD SERVICE SUPERVISOR) [facility] Magnesium 2.9(H) 1.4 - 2.5 mg/dL Blood 09/28/2024 12:0 6 AM FIELD SERVICE SUPERVISOR 09/28/2024 12:22 AM FIELD SERVICE SUPERVISOR us Stuart Flores MD LAB BLOOD ORDERABLES Final Resul t [facility] Department [place] [address] * (ABNORMAL) Comprehensive metabolic panel (09/28/2024 12:06 AM FIELD SERVICE SUPERVISOR) Sodium 143 135 - 145 mmol/L Potassium, pl 3.5 3.3 - 4.9 mmol/L [facility] Chloride 101 97 - 110 mmol/L [facility] CO2 27 22 - 32 mmol/L [facility] Anion gap 15 2 - 15 mmol/L [facility] BUN 74(H) 6 - 25 mg/dL [facility] Creatinine 3.29(H) 0.60 - 1.10 mg/dL [facility] Glucose 244(H) 70 - 199 mg/dL [facility] Comment: Interpretive Data Fasting glucose >/= 126 [...] 2022. Calcium 10.5(H) 8.5 - 10.3 mg/dL [facility] Bilirubin, total 2.6(H) 0.1 - 1.2 mg/dL [facility] Protein, pl 6.9 6.5 - 8.5 g/dL [facility] Albumin 4.4 3.5 - 5.0 g/dL [facility] Alk phos 80 40 - 130 Units/L [facility] ALT 18 7 - 45 Units/L [facility] AST 29 10 - 45 Units/L [facility] Blood 09/28/2024 12:0 6 AM FIELD SERVICE SUPERVISOR 09/28/2024 12:22 AM FIELD SERVICE SUPERVISOR Najma Pires MD LAB BLOOD ORDERABLES Final Result Performing Organization Address [facility] [place] [address] * (ABNORMAL) POCT glucose (09/27/2024 11:55 PM FIELD SERVICE SUPERVISOR) Glucose, POC 224(H) 70 - 199 mg/dL Blood 09/27/2024 11:5 5 PM FIELD SERVICE SUPERVISOR 09/27/2024 11:55 PM FIELD SERVICE SUPERVISOR Result [facility] Stuart Flores MD LAB POCT ORDERABLES - DEVICE Fin al Result Performing Organization Address [facility] de Phone Number [facility] [place] [address] * POCT glucose (09/27/2024 8:03 PM FIELD SERVICE SUPERVISOR) Glucose, POC 197 70 - 199 mg/dL Blood 09/27/2024 8:03 PM FIELD SERVICE SUPERVISOR 09/27/2024 8:03 PM FIELD SERVICE SUPERVISOR Result [facility] Stuart Flores MD LAB POCT ORDERABLES - DEVICE Fin al Result Performing Organization Address [facility] de Phone Number [facility] [place] [address] * (ABNORMAL) POCT glucose (09/27/2024 4:26 PM FIELD SERVICE SUPERVISOR) Glucose, POC 203(H) 70 - 199 mg/dL Blood 09/27/2024 4:26 PM FIELD SERVICE SUPERVISOR 09/27/2024 4:26 PM FIELD SERVICE SUPERVISOR Result [facility] Stuart Flores MD LAB POCT ORDERABLES - DEVICE Fin al Result Performing Organization Address [facility] Co de Phone Number [facility] [place] [place] [address] * (ABNORMAL) POCT glucose (09/27/2024 11:49 AM FIELD SERVICE SUPERVISOR) Glucose, POC 241(H) 70 - 199 mg/dL Blood 09/27/2024 11:4 9 AM FIELD SERVICE SUPERVISOR 09/27/2024 11:49 AM FIELD SERVICE SUPERVISOR us Stuart Flores MD LAB POCT ORDERABLES - DEVICE Fin al Result Performing Organization Address [facility] Co de Phone Number [facility] [place] [place] [address] * POCT glucose (09/27/2024 8:05 AM FIELD SERVICE SUPERVISOR) Glucose, POC 199 70 - 199 mg/dL Blood 09/27/2024 8:05 AM FIELD SERVICE SUPERVISOR 09/27/2024 8:05 AM FIELD SERVICE SUPERVISOR us Stuart Flores MD LAB POCT ORDERABLES - DEVICE Fin al Result Performing Organization Address [facility] de Phone Number [facility] [place] [place] [address] * (ABNORMAL) POCT glucose (09/27/2024 4:24 AM FIELD SERVICE SUPERVISOR) Glucose, POC 215(H) 70 - 199 mg/dL Blood 09/27/2024 4:24 AM FIELD SERVICE SUPERVISOR 09/27/2024 4:24 AM FIELD SERVICE SUPERVISOR us Stuart Flores MD LAB POCT ORDERABLES - DEVICE Fin al Result Performing Organization Address [facility] Co de Phone Number [facility] [address] * POCT glucose (09/26/2024 11:20 PM FIELD SERVICE SUPERVISOR) Glucose, POC 168 70 - 199 mg/dL Blood 09/26/2024 11:2 0 PM FIELD SERVICE SUPERVISOR 09/26/2024 11:20 PM FIELD SERVICE SUPERVISOR Stuart Flores MD LAB POCT ORDERABLES - DEVICE Fin al Result Performing Organization Address [facility] Co de Phone Number [facility] Department [place] [address] * (ABNORMAL) eGFR (09/26/2024 9:23 PM FIELD SERVICE SUPERVISOR) Pathologist [facility] eGFR 10(L) >=60 mL/min/1. 73 m2 Comment: [...] last reviewed 2021. Blood 09/26/2024 9:23 PM FIELD SERVICE SUPERVISOR 09/26/2024 10:24 PM FIELD SERVICE SUPERVISOR us Najma Pires MD LAB BLOOD ORDERABLES Final Result Performing Organization Address [facility] Co de Phone Number [facility] Department [place] [address] * (ABNORMAL) Differential, auto (09/26/2024 9:23 PM FIELD SERVICE SUPERVISOR) [facility] Neutrophil abs 3.7 1.5 - 6.5 K/cumm Imm gran abs 0.0 0.0 - 0.1 K/cumm [facility] Lymphocyte abs 1.6 0.8 - 3.3 K/cumm [facility] Monocyte abs 1.0(H) 0.2 - 0.8 K/cumm [facility] Eosinophil abs 0.7(H) 0.0 - 0.5 K/cumm [facility] Basophil abs 0.0 0.0 - 0.1 K/cumm [facility] Neutrophil pct 53.1 % [facility] Comment: Interpretive Data Percent cell count reference ranges are not reported, since discordance with absolute values may lead to misinterpretation of CBC data. Current Interpretive Data was last revised on 2017. Imm gran pct 0.4 % [facility] Comment: Interpretive Data Percent cell count reference ranges are not reported, since discordance with absolute values may lead to misinterpretation of CBC data. Current Interpretive Data was last revised on 2017. Lymphocyte pct 23.0 % [facility] Comment: Interpretive Data Percent cell count reference ranges are not reported, since discordance with absolute values may lead to misinterpretation of CBC data. Current Interpretive Data was last revised on 2017. Monocyte pct 13.5 % [facility] Comment: Interpretive Data Percent cell count reference ranges are not reported, since discordance with absolute values may lead to misinterpretation of CBC data. Current Interpretive Data was last revised on 2017. Eosinophil pct 9.4 % [facility] Comment: Interpretive Data Percent cell count reference ranges are not reported, since discordance with absolute values may lead to misinterpretation of CBC data. Current Interpretive Data was last revised on 2017. Basophil pct 0.6 % [facility] Comment: Interpretive Data Percent cell count reference ranges are not reported, since discordance with absolute values may lead to misinterpretation of CBC data. Current Interpretive Data was last revised on 2017. Blood 09/26/2024 9:23 PM FIELD SERVICE SUPERVISOR 09/26/2024 10:25 PM FIELD SERVICE SUPERVISOR us Najma Pires MD LAB BLOOD ORDERABLES Final Result [facility] Department [place] [address] * (ABNORMAL) CBC with auto differential (09/26/2024 9:23 PM FIELD SERVICE SUPERVISOR) Pathologist [facility] WBC 7.0 3.8 - 9.9 K/cumm Hgb 11.1(L) 11.9 - 15.5 g/dL [facility] Hct 31.6(L) 35.6 - 45.5 % [facility] Plt 66(L) 150 - 400 K/cumm [facility] MPV 12.7(H) 9.1 - 12.3 fL [facility] RBC 3.44(L) 3.90 - 5.20 M/cumm [facility] MCV 91.9 81.3 - 96.4 fL [facility] MCH 32.3 27.1 - 33.3 pg [facility] MCHC 35.1 32.3 - 35.7 g/dL [facility] RDW CV 14.6 11.1 - 14.9 % [facility] RDW SD 49.0(H) 35.7 - 48.1 fL [facility] NRBC abs 0.00 0.00 - 0.01 K/cumm [facility] Blood 09/26/2024 9:23 PM FIELD SERVICE SUPERVISOR 09/26/2024 10:25 PM FIELD SERVICE SUPERVISOR us Najma Pires MD LAB BLOOD ORDERABLES Final Result [facility] Department [place] [address] * (ABNORMAL) Protime-INR (09/26/2024 9:23 PM FIELD SERVICE SUPERVISOR) Pathologist [facility] PT 15.3(H) 9.7 - 13.0 sec INR 1.41(H) 0.90 - 1.20 [facility] Comment: Interpretive data Oral anticoagulant therapeutic ranges: Venous thromboembolism prophylaxis or treatment: 2.0-3.0 CARDIOLOGY Standard range: 2.0-3.0 High-intensity range: 2.5-3.5 Refer to indication-specific guidelines for appropriate target ranges for prosthetic heart valve replacement. Current interpretive data was last revised on 2019. Blood 09/26/2024 9:23 PM FIELD SERVICE SUPERVISOR 09/26/2024 10:19 PM FIELD SERVICE SUPERVISOR us Stuart Flores MD LAB BLOOD ORDERABLES Final Resul t Performing Organization Address [facility] Co de Phone Number [facility] [place] [address] * Phosphorus (09/26/2024 9:23 PM FIELD SERVICE SUPERVISOR) [facility] Phosphorus, pl 3.2 2.3 - 4.5 mg/dL Comment:Repeated and Verifie d Blood 09/26/2024 9:23 PM FIELD SERVICE SUPERVISOR 09/26/2024 10:24 PM FIELD SERVICE SUPERVISOR us Stuart Flores MD LAB BLOOD ORDERABLES Final Resul t Performing Organization Address [facility] de Phone Number [facility] Department [place] [address] * (ABNORMAL) Magnesium (09/26/2024 9:23 PM FIELD SERVICE SUPERVISOR) [facility] Magnesium 3.0(H) 1.4 - 2.5 mg/dL Blood 09/26/2024 9:23 PM FIELD SERVICE SUPERVISOR 09/26/2024 10:24 PM FIELD SERVICE SUPERVISOR us Stuart Flores MD LAB BLOOD ORDERABLES Final Resul t Performing Organization Address [facility] de Phone Number [facility] [place] [address] * (ABNORMAL) Comprehensive metabolic panel (09/26/2024 9:23 PM FIELD SERVICE SUPERVISOR) [facility] Sodium 143 135 - 145 mmol/L Potassium, pl 3.3 3.3 - 4.9 mmol/L [facility] Chloride 100 97 - 110 mmol/L [facility] CO2 26 22 - 32 mmol/L [facility] Anion gap 17(H) 2 - 15 mmol/L [facility] BUN 93(H) 6 - 25 mg/dL [facility] Creatinine 4.70(H) 0.60 - 1.10 mg/dL [facility] Glucose 196 70 - 199 mg/dL [facility] Comment: Interpretive Data Fasting glucose >/= 126 [...] 2022. Calcium 10.1 8.5 - 10.3 mg/dL [facility] Bilirubin, total 2.1(H) 0.1 - 1.2 mg/dL [facility] Protein, pl 6.6 6.5 - 8.5 g/dL [facility] Albumin 4.3 3.5 - 5.0 g/dL [facility] Alk phos 85 40 - 130 Units/L [facility] ALT 13 7 - 45 Units/L [facility] AST 30 10 - 45 Units/L [facility] Blood 09/26/2024 9:23 PM FIELD SERVICE SUPERVISOR 09/26/2024 10:24 PM FIELD SERVICE SUPERVISOR us Najma Pires MD LAB BLOOD ORDERABLES Final Result [facility] Department [place] [address] * (ABNORMAL) POCT glucose (09/26/2024 7:53 PM FIELD SERVICE SUPERVISOR) [facility] Glucose, POC 204(H) 70 - 199 mg/dL Blood 09/26/2024 7:53 PM FIELD SERVICE SUPERVISOR 09/26/2024 7:53 PM FIELD SERVICE SUPERVISOR us Stuart Flores MD LAB POCT ORDERABLES - DEVICE Fin al Result Performing Organization Address [facility] Co de Phone Number [facility] Department [place] [address] * (ABNORMAL) POCT glucose (09/26/2024 4:37 PM FIELD SERVICE SUPERVISOR) Glucose, POC 256(H) 70 - 199 mg/dL Blood 09/26/2024 4:37 PM FIELD SERVICE SUPERVISOR 09/26/2024 4:37 PM FIELD SERVICE SUPERVISOR us Stuart Flores MD LAB POCT ORDERABLES - DEVICE Fin al Result Performing Organization Address [facility] de Phone Number [facility] Department [place] [address] * (ABNORMAL) eGFR (09/26/2024 3:40 PM FIELD SERVICE SUPERVISOR) Pathologist [facility] eGFR 9(L) >=60 mL/min/1. 73 m2 Comment: [...] last reviewed 2021. Blood 09/26/2024 3:40 PM FIELD SERVICE SUPERVISOR 09/26/2024 5:50 PM FIELD SERVICE SUPERVISOR us Stuart Flores MD LAB BLOOD ORDERABLES Final Resul t [facility] Department [place] [address] * (ABNORMAL) Basic metabolic panel (09/26/2024 3:40 PM FIELD SERVICE SUPERVISOR) Sodium 139 135 - 145 mmol/L Potassium, pl 3.4 3.3 - 4.9 mmol/L [facility] Chloride 98 97 - 110 mmol/L [facility] CO2 25 22 - 32 mmol/L [facility] Anion gap 16(H) 2 - 15 mmol/L [facility] BUN 87(H) 6 - 25 mg/dL [facility] Creatinine 4.94(H) 0.60 - 1.10 mg/dL [facility] Glucose 273(H) 70 - 199 mg/dL [facility] Comment: Interpretive Data Fasting glucose >/= 126 [...] 2022. Calcium 10.1 8.5 - 10.3 mg/dL [facility] Blood 09/26/2024 3:40 PM FIELD SERVICE SUPERVISOR 09/26/2024 5:50 PM FIELD SERVICE SUPERVISOR us Stuart Flores MD LAB BLOOD ORDERABLES Final Resul t Performing Organization Address City/[facility]/ZIP Co de Phone Number [facility] Department [place] [address] * (ABNORMAL) POCT glucose (09/26/2024 11:16 AM FIELD SERVICE SUPERVISOR) Glucose, POC 290(H) 70 - 199 mg/dL Blood 09/26/2024 11:1 6 AM FIELD SERVICE SUPERVISOR 09/26/2024 11:16 AM FIELD SERVICE SUPERVISOR us Stuart Flores MD LAB POCT ORDERABLES - DEVICE Fin al Result Performing Organization Address [facility] de Phone Number [facility] [place] [address] * (ABNORMAL) POCT glucose (09/26/2024 9:40 AM FIELD SERVICE SUPERVISOR) Glucose, POC 233(H) 70 - 199 mg/dL Blood 09/26/2024 9:40 AM FIELD SERVICE SUPERVISOR 09/26/2024 9:40 AM FIELD SERVICE SUPERVISOR Result Anitha Flores MD LAB POCT ORDERABLES - DEVICE Fin al Result Performing Organization Address [facility] Phone Number [facility] [place] [address] * (ABNORMAL) Lactate (09/26/2024 8:16 AM FIELD SERVICE SUPERVISOR) Lactate 3.4(H) 0.7 - 2.0 mmol/L Blood 09/26/2024 8:16 AM FIELD SERVICE SUPERVISOR 09/26/2024 8:25 AM FIELD SERVICE SUPERVISOR Result Anitha Flores MD LAB BLOOD ORDERABLES Final Resul t Performing Organization Address [facility] Phone Number [facility] [place] [place] [address] * (ABNORMAL) POCT glucose (09/26/2024 7:45 AM FIELD SERVICE SUPERVISOR) Glucose, POC 305(H) 70 - 199 mg/dL Blood 09/26/2024 7:45 AM FIELD SERVICE SUPERVISOR 09/26/2024 7:45 AM FIELD SERVICE SUPERVISOR us Stuart Flores MD LAB POCT ORDERABLES - DEVICE Fin al Result [facility] [place] [address] * (ABNORMAL) POCT glucose (09/26/2024 4:26 AM FIELD SERVICE SUPERVISOR) Glucose, POC 283(H) 70 - 199 mg/dL Blood 09/26/2024 4:26 AM FIELD SERVICE SUPERVISOR 09/26/2024 4:26 AM FIELD SERVICE SUPERVISOR us Stuart Flores MD LAB POCT ORDERABLES - DEVICE Fin al Result [facility] Department [place] [address] * CT Abdomen Pelvis WO Contrast (09/26/2024 3:17 AM FIELD SERVICE SUPERVISOR) Anatomical Region Laterality Modality Body N/A Computed Tomogra phy 09/26/2024 3:35 AM FIELD SERVICE SUPERVISOR Impressions 09/26/2024 8:12 AM FIELD SERVICE SUPERVISOR 1. No acute intra-abdominal findings. 2. Cirrhotic [...] Juan Randall MD Narrative 09/26/2024 8:12 AM FIELD SERVICE SUPERVISOR EXAMINATION: Computed tomography of the abdomen and [...] Months with Chest CT. Dictated by: Nacho Tim Moe, M.D. The radiology attending physician has personally reviewed this study, and had reviewed and/or edited this written report and agrees with it. Electronically signed by: Juan Randall MD us Stuart Flores MD IMG CT PROCEDURES Final Result * (ABNORMAL) Lactate (09/26/2024 12:44 AM FIELD SERVICE SUPERVISOR) Lactate 3.5(H) 0.7 - 2.0 mmol/L Blood 09/26/2024 12:4 4 AM FIELD SERVICE SUPERVISOR 09/26/2024 1:06 AM FIELD SERVICE SUPERVISOR us Stuart Flores MD LAB BLOOD ORDERABLES Final Resul t Performing Organization Address [facility]/ZIP Co de Phone Number [facility] Department [place] [address] * (ABNORMAL) POCT glucose (09/26/2024 12:08 AM FIELD SERVICE SUPERVISOR) Pathologist [facility] Glucose, POC 302(H) 70 - 199 mg/dL Blood 09/26/2024 12:0 8 AM FIELD SERVICE SUPERVISOR 09/26/2024 12:08 AM FIELD SERVICE SUPERVISOR Result Anitha Flores MD LAB POCT ORDERABLES - DEVICE Fin al Result Performing Organization Address [facility] Co de Phone Number [facility] Department [place] [address] * (ABNORMAL) eGFR (09/25/2024 10:48 PM FIELD SERVICE SUPERVISOR) eGFR 9(L) >=60 mL/min/1. 73 m2 Comment: [...] reviewed 2021. Blood 09/25/2024 10:4 8 PM FIELD SERVICE SUPERVISOR 09/26/2024 12:38 AM FIELD SERVICE SUPERVISOR us Najma Pires MD LAB BLOOD ORDERABLES Final Result [facility] Department [place] [address] * (ABNORMAL) Differential, auto (09/25/2024 10:48 PM FIELD SERVICE SUPERVISOR) Neutrophil abs 5.9 1.5 - 6.5 K/cumm Imm gran abs 0.0 0.0 - 0.1 K/cumm [facility] Lymphocyte abs 1.8 0.8 - 3.3 K/cumm [facility] Monocyte abs 1.2(H) 0.2 - 0.8 K/cumm [facility] Eosinophil abs 0.5 0.0 - 0.5 K/cumm [facility] Basophil abs 0.1 0.0 - 0.1 K/cumm [facility] Neutrophil pct 62.4 % [facility] Comment: Interpretive Data Percent cell count reference ranges are not reported, since discordance with absolute values may lead to misinterpretation of CBC data. Current Interpretive Data was last revised on 2017. Imm gran pct 0.2 % [facility] Comment: Interpretive Data Percent cell count reference ranges are not reported, since discordance with absolute values may lead to misinterpretation of CBC data. Current Interpretive Data was last revised on 2017. Lymphocyte pct 19.1 % [facility] Comment: Interpretive Data Percent cell count reference ranges are not reported, since discordance with absolute values may lead to misinterpretation of CBC data. Current Interpretive Data was last revised on 2017. Monocyte pct 12.3 % [facility] Comment: Interpretive Data Percent cell count reference ranges are not reported, since discordance with absolute values may lead to misinterpretation of CBC data. Current Interpretive Data was last revised on 2017. Eosinophil pct 5.4 % [facility] Comment: Interpretive Data Percent cell count reference ranges are not reported, since discordance with absolute values may lead to misinterpretation of CBC data. Current Interpretive Data was last revised on 2017. Basophil pct 0.6 % [facility] Comment: Interpretive Data Percent cell count reference ranges are not reported, since discordance with absolute values may lead to misinterpretation of CBC data. Current Interpretive Data was last revised on 2017. Blood 09/25/2024 10:4 8 PM FIELD SERVICE SUPERVISOR 09/26/2024 12:37 AM FIELD SERVICE SUPERVISOR us Najma Pires MD LAB BLOOD ORDERABLES Final Result [facility] Department [place] [address] * (ABNORMAL) CBC with auto differential (09/25/2024 10:48 PM FIELD SERVICE SUPERVISOR) Pathologist [facility] WBC 9.5 3.8 - 9.9 K/cumm Hgb 12.1 11.9 - 15.5 g/dL [facility] Hct 34.4(L) 35.6 - 45.5 % [facility] Plt 81(L) 150 - 400 K/cumm [facility] MPV 12.5(H) 9.1 - 12.3 fL [facility] RBC 3.85(L) 3.90 - 5.20 M/cumm [facility] MCV 89.4 81.3 - 96.4 fL [facility] MCH 31.4 27.1 - 33.3 pg [facility] MCHC 35.2 32.3 - 35.7 g/dL [facility] RDW CV 14.6 11.1 - 14.9 % [facility] RDW SD 46.7 35.7 - 48.1 fL [facility] NRBC abs 0.00 0.00 - 0.01 K/cumm [facility] Blood 09/25/2024 10:4 8 PM FIELD SERVICE SUPERVISOR 09/26/2024 12:37 AM FIELD SERVICE SUPERVISOR us Najma Pires MD LAB BLOOD ORDERABLES Final Result Performing Organization Address [facility] de Phone Number [facility] [place] [address] * (ABNORMAL) Protime-INR (09/25/2024 10:48 PM FIELD SERVICE SUPERVISOR) PT 15.5(H) 9.7 - 13.0 sec INR 1.42(H) 0.90 - 1.20 [facility] Comment: Interpretive data Oral anticoagulant therapeutic ranges: Venous thromboembolism prophylaxis or treatment: 2.0-3.0 CARDIOLOGY Standard range: 2.0-3.0 High-intensity range: 2.5-3.5 Refer to indication-specific guidelines for appropriate target ranges for prosthetic heart valve replacement. Current interpretive data was last revised on 2019. Blood 09/25/2024 10:4 8 PM FIELD SERVICE SUPERVISOR 09/26/2024 12:41 AM FIELD SERVICE SUPERVISOR us Stuart Flores MD LAB BLOOD ORDERABLES Final Resul t Performing Organization Address [facility] Co de Phone Number [facility] [place] [address] * (ABNORMAL) Comprehensive metabolic panel (09/25/2024 10:48 PM FIELD SERVICE SUPERVISOR) Sodium 140 135 - 145 mmol/L Potassium, pl 2.8(L) 3.3 - 4.9 mmol/L [facility] Chloride 95(L) 97 - 110 mmol/L [facility] CO2 26 22 - 32 mmol/L [facility] Anion gap 19(H) 2 - 15 mmol/L [facility] BUN 89(H) 6 - 25 mg/dL [facility] Creatinine 5.24(H) 0.60 - 1.10 mg/dL [facility] Glucose 323(H) 70 - 199 mg/dL [facility] Comment: Interpretive Data Fasting glucose >/= 126 [...] 2022. Calcium 10.2 8.5 - 10.3 mg/dL [facility] Bilirubin, total 2.1(H) 0.1 - 1.2 mg/dL [facility] Protein, pl 6.7 6.5 - 8.5 g/dL [facility] Albumin 3.9 3.5 - 5.0 g/dL [facility] Alk phos 97 40 - 130 Units/L [facility] ALT 15 7 - 45 Units/L [facility] AST 34 10 - 45 Units/L [facility] Blood 09/25/2024 10:4 8 PM FIELD SERVICE SUPERVISOR 09/26/2024 12:38 AM FIELD SERVICE SUPERVISOR us Najma Pires MD LAB BLOOD ORDERABLES Final Result Performing Organization Address [facility]/ZIP Co de Phone Number [facility] Department [place] [address] * (ABNORMAL) POCT glucose (09/25/2024 8:27 PM FIELD SERVICE SUPERVISOR) [facility] Glucose, POC 318(H) 70 - 199 mg/dL Blood 09/25/2024 8:27 PM FIELD SERVICE SUPERVISOR 09/25/2024 8:27 PM FIELD SERVICE SUPERVISOR us Stuart Flores MD LAB POCT ORDERABLES - DEVICE Fin al Result Performing Organization Address [facility] Co de Phone Number [facility] [place] [address] * (ABNORMAL) POCT glucose (09/25/2024 6:12 PM FIELD SERVICE SUPERVISOR) Glucose, POC 288(H) 70 - 199 mg/dL Blood 09/25/2024 6:12 PM FIELD SERVICE SUPERVISOR 09/25/2024 6:12 PM FIELD SERVICE SUPERVISOR us Stuart Flores MD LAB POCT ORDERABLES - DEVICE Fin al Result Performing Organization Address [facility] [place] [address] * (ABNORMAL) POCT glucose (09/25/2024 4:12 PM FIELD SERVICE SUPERVISOR) Pathologist [facility] Glucose, POC 263(H) 70 - 199 mg/dL Blood 09/25/2024 4:12 PM FIELD SERVICE SUPERVISOR 09/25/2024 4:12 PM FIELD SERVICE SUPERVISOR us Stuart Flores MD LAB POCT ORDERABLES - DEVICE Fin al Result Performing Organization Address [facility] de Phone Number [facility] [place] [place] [address] * (ABNORMAL) Lactate (09/25/2024 3:24 PM FIELD SERVICE SUPERVISOR) [facility] Lactate 4.9(C) 0.7 - 2.0 mmol/L Blood 09/25/2024 3:24 PM FIELD SERVICE SUPERVISOR 09/25/2024 3:54 PM FIELD SERVICE SUPERVISOR us Stuart Flores MD LAB BLOOD ORDERABLES Final Resul t Performing Organization Address [facility] de Phone Number [facility] [place] [address] * Critical Result Callback Chemistry (09/25/2024 3:24 PM FIELD SERVICE SUPERVISOR) Pathologist [facility] Date Notified [id number] Time Notified 1625 [facility] TestName Lactate [facility] Called/Read Back Javier Thomas [facility] Credentials RN [facility] Called By MARTHA [facility] Blood 09/25/2024 3:24 PM FIELD SERVICE SUPERVISOR 09/25/2024 3:54 PM FIELD SERVICE SUPERVISOR us Stuart Flores MD LAB BLOOD ORDERABLES Final Resul t Performing Organization Address [facility] Co de Phone Number [facility] Department [place] [address] * Urinalysis reflex to microscopic and culture Urine (09/25/2024 3:24 PM FIELD SERVICE SUPERVISOR) Color, ur Yellow Yellow Clarity, ur Clear Clear [facility] Specific gravity, ur 1.017 1.003 - 1.030 [facility] pH, urine 5.5 [facility] Comment: Interpretive Data U rine pH is affected by diet, medications, systemic acid-base disturbances, and renal tubular function. pH may affect urinary stone formation. For example, urine pH below 6.0 may help reduce the tendency for calcium phosphate stones and pH greater than 6.0 may reduce the tendency for uric acid stone formation. Source: [facility] Current Interpretive Data was last revised on 2017 Protein, ur ql Negative Negative [facility] Glucose, ur ql Negative Negative [facility] Ketones, ur Negative Negative [facility] Bilirubin, ur Negative Negative [facility] Blood, ur Negative Negative [facility] Urobilinogen, ur <2.0 <2.0 mg/dL [facility] Nitrite, ur Negative Negative [facility] Leukocyte esterase, ur Negative Negative [facility] UA reflex comment Reflex conditions for microscopic UA and culture not met. [facility] Urine 09/25/2024 3:24 PM FIELD SERVICE SUPERVISOR 09/25/2024 3:42 PM FIELD SERVICE SUPERVISOR us Britany Knight MD LAB MICROBIOLOGY - GENERAL ORD ERABLES Final Result Performing Organization Address City/[facility]/ZIP Co de Phone Number [facility] [place] [address] * Sodium, urine, random (09/25/2024 3:24 PM FIELD SERVICE SUPERVISOR) Sodium, ur 31 mmol/L Comment: Interpretive Data No reference range established. Current interpretive data was last revised 2018. Urine 09/25/2024 3:24 PM FIELD SERVICE SUPERVISOR 09/25/2024 3:54 PM FIELD SERVICE SUPERVISOR Najma Pires MD LAB URINE ORDERABLES Final Result Performing Organization Address [facility] [place] [address] * (ABNORMAL) POCT glucose (09/25/2024 2:41 PM FIELD SERVICE SUPERVISOR) Glucose, POC 315(H) 70 - 199 mg/dL Blood 09/25/2024 2:41 PM FIELD SERVICE SUPERVISOR 09/25/2024 2:41 PM FIELD SERVICE SUPERVISOR Stuart Flores MD LAB POCT ORDERABLES - DEVICE Fin al Result Performing Organization Address [facility] Co de Phone Number [facility] [place] [address] * (ABNORMAL) POCT glucose (09/25/2024 12:32 PM FIELD SERVICE SUPERVISOR) Glucose, POC 343(H) 70 - 199 mg/dL Blood 09/25/2024 12:3 2 PM FIELD SERVICE SUPERVISOR 09/25/2024 12:32 PM FIELD SERVICE SUPERVISOR Stuart Flores MD LAB POCT ORDERABLES - DEVICE Fin al Result Performing Organization Address [facility] Co de Phone Number [facility] [place] [place] [address] * (ABNORMAL) Troponin I high-sensitivity 4-hour (09/25/2024 11:38 AM FIELD SERVICE SUPERVISOR) Trop I hs 80(H) <=17 ng/L Comment: Interpretive Data For further hscTnI resources including the diagnostic algorithm and an aid in interpretation, copy and paste this link: [email or web address].org/show/hsTrop-1 Current Interpretive Data last revised 2020. Trop I hs delta 6 ng/L [facility] Trop I hs interp Equivocal [facility] Blood 09/25/2024 11:3 8 AM FIELD SERVICE SUPERVISOR 09/25/2024 12:27 PM FIELD SERVICE SUPERVISOR us Stuart Flores MD LAB BLOOD ORDERABLES Final Resul t Performing Organization Address City/[facility]/ZIP Co de Phone Number [facility] Department [place] [address] * (ABNORMAL) POCT glucose (09/25/2024 11:14 AM FIELD SERVICE SUPERVISOR) [facility] Glucose, POC 312(H) 70 - 199 mg/dL Blood 09/25/2024 11:1 4 AM FIELD SERVICE SUPERVISOR 09/25/2024 11:14 AM FIELD SERVICE SUPERVISOR us Stuart Flores MD LAB POCT ORDERABLES - DEVICE Fin al Result Performing Organization Address [facility]/ZIP Co de Phone Number [facility] Department [place] [address] * (ABNORMAL) Troponin I high-sensitivity 2-hour (09/25/2024 9:51 AM FIELD SERVICE SUPERVISOR) Pathologist [facility] Trop I hs 62(H) <=17 ng/L Comment: Previous critical value noted within 48 hours ago. Interpretive Data For further hscTnI resources including the diagnostic algorithm and an aid in interpretation, copy and paste this link: https://1-800-DENTISTab.[employer].org/show/hsTrop-1 Current Interpretive Data last revised 2020. Trop I hs delta -12(C) ng/L [facility] Trop I hs interp Significa nt(C) [facility] Blood 09/25/2024 9:51 AM FIELD SERVICE SUPERVISOR 09/25/2024 10:22 AM FIELD SERVICE SUPERVISOR us Stuart Flores MD LAB BLOOD ORDERABLES Final Resul t Performing Organization Address [facility] Co de Phone Number [facility] [place] [address] * Critical result callback Cardio chemistry (09/25/2024 9:51 AM FIELD SERVICE SUPERVISOR) Date Notified [id number] Time Notified 1105 [facility] Test name Trop I hs 2hr [facility] Called/Read Back Javier [facility] Credentials RN [facility] Called By PD [facility] Blood 09/25/2024 9:51 AM FIELD SERVICE SUPERVISOR 09/25/2024 10:22 AM FIELD SERVICE SUPERVISOR us Sturat Flores MD LAB BLOOD ORDERABLES Final Resul t Performing Organization Address [facility] [place] [address] * (ABNORMAL) POCT glucose (09/25/2024 9:19 AM FIELD SERVICE SUPERVISOR) Glucose, POC 260(H) 70 - 199 mg/dL Blood 09/25/2024 9:19 AM FIELD SERVICE SUPERVISOR 09/25/2024 9:19 AM FIELD SERVICE SUPERVISOR us Stuart Flores MD LAB POCT ORDERABLES - DEVICE Fin al Result Performing Organization Address [facility] [place] [address] * (ABNORMAL) Troponin I high-sensitivity series (baseline, 2hr, 4hr, 6hr) (09/25/2024 7:44 AM FIELD SERVICE SUPERVISOR) Trop I hs 74(H) <=17 ng/L Comment: Interpretive Data For further hscTnI resources including the diagnostic algorithm and an aid in interpretation, copy and paste this link: https://bjhlab.testcatalog.org/show/hsTrop-1 Current Interpretive Data last revised 2020. Blood 09/25/2024 7:44 AM FIELD SERVICE SUPERVISOR 09/25/2024 7:57 AM FIELD SERVICE SUPERVISOR us Stuart Flores MD LAB BLOOD ORDERABLES Final Resul t Performing Organization Address [facility] Co de Phone Number [facility] [place] [place] [address] * (ABNORMAL) Lactate (09/25/2024 7:44 AM FIELD SERVICE SUPERVISOR) [facility] Lactate 3.6(H) 0.7 - 2.0 mmol/L Blood 09/25/2024 7:44 AM FIELD SERVICE SUPERVISOR 09/25/2024 7:57 AM FIELD SERVICE SUPERVISOR us Stuart Flores MD LAB BLOOD ORDERABLES Final Resul t Performing Organization Address [facility] de Phone Number [facility] [place] [address] * (ABNORMAL) POCT glucose (09/25/2024 7:32 AM FIELD SERVICE SUPERVISOR) [facility] Glucose, POC 311(H) 70 - 199 mg/dL Blood 09/25/2024 7:32 AM FIELD SERVICE SUPERVISOR 09/25/2024 7:32 AM FIELD SERVICE SUPERVISOR us Stuart Flores MD LAB POCT ORDERABLES - DEVICE Fin al Result Performing Organization Address [facility] Co de Phone Number [facility] [place] [address] * (ABNORMAL) POCT glucose (09/25/2024 4:12 AM FIELD SERVICE SUPERVISOR) Glucose, POC 334(H) 70 - 199 mg/dL Blood 09/25/2024 4:12 AM FIELD SERVICE SUPERVISOR 09/25/2024 4:12 AM FIELD SERVICE SUPERVISOR Stuart Flores MD LAB POCT ORDERABLES - DEVICE Fin al Result Performing Organization Address [facility] Co de Phone Number [facility] Department [place] [address] * (ABNORMAL) POCT glucose (09/25/2024 2:52 AM FIELD SERVICE SUPERVISOR) Glucose, POC 360(H) 70 - 199 mg/dL Blood 09/25/2024 2:52 AM FIELD SERVICE SUPERVISOR 09/25/2024 2:52 AM FIELD SERVICE SUPERVISOR Stuart Flores MD LAB POCT ORDERABLES - DEVICE Fin al Result Performing Organization Address [facility] de Phone Number [facility] Department [place] [address] * XR Abdomen Ap 1 Vw (09/25/2024 1:32 AM FIELD SERVICE SUPERVISOR) Anatomical Region Laterality Modality Body, Abdomen N/A Digital Radiogra phy 09/25/2024 8:29 AM FIELD SERVICE SUPERVISOR Impressions 09/25/2024 4:40 PM FIELD SERVICE SUPERVISOR Gastric tube tip coils over the fundus [...] Nessa Dodson M.D. Narrative 09/25/2024 4:40 PM FIELD SERVICE SUPERVISOR EXAMINATION: Abdomen, one view. HISTORY: Intubation of [...] it. Electronically signed by: Nessa Dodson M.D. Stuart Flores MD IMG XR PROCEDURES Final Result * (ABNORMAL) POCT glucose (09/25/2024 12:11 AM FIELD SERVICE SUPERVISOR) [facility] Glucose, POC 390(H) 70 - 199 mg/dL Comment:Glu2: RN/MD Notified Glucose comment 1 Glu2: RN/MD Notified CHARISSA D[facility]NE Blood 09/25/2024 12:1 1 AM FIELD SERVICE SUPERVISOR 09/25/2024 12:11 AM FIELD SERVICE SUPERVISOR Stuart Flores MD LAB POCT ORDERABLES - DEVICE Fin al Result [facility] Department [place] [address] * (ABNORMAL) Troponin I high-sensitivity 6-hour (09/24/2024 11:56 PM FIELD SERVICE SUPERVISOR) Pathologist [facility] Trop I hs 57(H) <=17 ng/L Comment: Interpretive Data For further hscTnI resources including the diagnostic algorithm and an aid in interpretation, copy and paste this link: https://bjhlab.testcatalog.org/show/hsTrop-1 Current Interpretive Data last revised 2020. Trop I hs delta See Comment ng/L CHARISSA [facility]NI Comment:Inappropriate collec tion time to report a delta. Trop I hs pct delta See Comment % CHARISSA DUNNE Comment:Inappropriate collec tion time to report a delta. Trop I hs interp See Comment CHARISSA DUNNE Comment:Inappropriate collec tion time to report a delta. Blood 09/24/2024 11:5 6 PM FIELD SERVICE SUPERVISOR 09/25/2024 12:10 AM FIELD SERVICE SUPERVISOR us Britany Knight MD LAB BLOOD ORDERABLES Final Res ult CHARISSA DUNNE [facility] Department [place] [address] * (ABNORMAL) eGFR (09/24/2024 11:56 PM FIELD SERVICE SUPERVISOR) eGFR 13(L) >=60 mL/min/1. 73 m2 Comment: [...] reviewed 2021. Blood 09/24/2024 11:5 6 PM FIELD SERVICE SUPERVISOR 09/25/2024 12:21 AM FIELD SERVICE SUPERVISOR us Najma Pires MD LAB BLOOD ORDERABLES Final Result [facility] Department [place] [address] * (ABNORMAL) Differential, auto (09/24/2024 11:56 PM FIELD SERVICE SUPERVISOR) Neutrophil abs 12.8(H) 1.5 - 6.5 K/cumm Imm gran abs 0.1 0.0 - 0.1 K/cumm [facility] Lymphocyte abs 0.9 0.8 - 3.3 K/cumm [facility] Monocyte abs 1.2(H) 0.2 - 0.8 K/cumm [facility] Eosinophil abs 0.1 0.0 - 0.5 K/cumm [facility] Basophil abs 0.0 0.0 - 0.1 K/cumm [facility] Neutrophil pct 84.6 % [facility] Comment: Interpretive Data Percent cell count reference ranges are not reported, since discordance with absolute values may lead to misinterpretation of CBC data. Current Interpretive Data was last revised on 2017. Imm gran pct 0.5 % [facility] Comment: Interpretive Data Percent cell count reference ranges are not reported, since discordance with absolute values may lead to misinterpretation of CBC data. Current Interpretive Data was last revised on 2017. Lymphocyte pct 6.1 % [facility] Comment: Interpretive Data Percent cell count reference ranges are not reported, since discordance with absolute values may lead to misinterpretation of CBC data. Current Interpretive Data was last revised on 2017. Monocyte pct 7.6 % [facility] Comment: Interpretive Data Percent cell count reference ranges are not reported, since discordance with absolute values may lead to misinterpretation of CBC data. Current Interpretive Data was last revised on 2017. Eosinophil pct 0.9 % [facility] Comment: Interpretive Data Percent cell count reference ranges are not reported, since discordance with absolute values may lead to misinterpretation of CBC data. Current Interpretive Data was last revised on 2017. Basophil pct 0.3 % [facility] Comment: Interpretive Data Percent cell count reference ranges are not reported, since discordance with absolute values may lead to misinterpretation of CBC data. Current Interpretive Data was last revised on 2017. Blood 09/24/2024 11:5 6 PM FIELD SERVICE SUPERVISOR 09/25/2024 12:10 AM FIELD SERVICE SUPERVISOR Najma Pires MD LAB BLOOD ORDERABLES Final Result Performing Organization Address City/[facility] Co de Phone Number [facility] Department [place] [address] * (ABNORMAL) CBC with auto differential (09/24/2024 11:56 PM FIELD SERVICE SUPERVISOR) WBC 15.1(H) 3.8 - 9.9 K/cumm Hgb 15.3 11.9 - 15.5 g/dL [facility] Hct 42.8 35.6 - 45.5 % [facility] Plt 93(L) 150 - 400 K/cumm [facility] MPV 12.4(H) 9.1 - 12.3 fL [facility] RBC 4.80 3.90 - 5.20 M/cumm [facility] MCV 89.2 81.3 - 96.4 fL [facility] MCH 31.9 27.1 - 33.3 pg [facility] MCHC 35.7 32.3 - 35.7 g/dL [facility] RDW CV 14.4 11.1 - 14.9 % [facility] RDW SD 46.5 35.7 - 48.1 fL [facility] NRBC abs 0.00 0.00 - 0.01 K/cumm [facility] Blood 09/24/2024 11:5 6 PM FIELD SERVICE SUPERVISOR 09/25/2024 12:10 AM FIELD SERVICE SUPERVISOR Najma Pires MD LAB BLOOD ORDERABLES Final Result Performing Organization Address [facility] Co de Phone Number [facility] Department [place] [address] * [id number], Tumor Marker (09/24/2024 11:56 PM FIELD SERVICE SUPERVISOR) alpha Fetoprotein <2.0 <=8.3 ng/mL Comment: Interpretive [...] ng/ml >1 year 0.0 8.3 ng/ml References Tsbrittney Y. et al. J. Ped Surg 1978;13:155-156 Bertram Mclean. et al. Clin Chem Lab Med 2018;57:783-797 Katya House et al. Clin Chem 2014;9248-3518. Current interpretive data was last revised 2022. Blood 09/24/2024 11:5 6 PM FIELD SERVICE SUPERVISOR 09/25/2024 12:09 AM FIELD SERVICE SUPERVISOR us Najma Pires MD LAB BLOOD ORDERABLES Final Result [facility] Department [place] [address] * (ABNORMAL) Protime-INR (09/24/2024 11:56 PM FIELD SERVICE SUPERVISOR) PT 14.3(H) 9.7 - 13.0 sec INR 1.32(H) 0.90 - 1.20 [facility] Comment: Interpretive data Oral anticoagulant therapeutic ranges: Venous thromboembolism prophylaxis or treatment: 2.0-3.0 CARDIOLOGY Standard range: 2.0-3.0 High-intensity range: 2.5-3.5 Refer to indication-specific guidelines for appropriate target ranges for prosthetic heart valve replacement. Current interpretive data was last revised on 2019. Blood 09/24/2024 11:5 6 PM FIELD SERVICE SUPERVISOR 09/25/2024 12:15 AM FIELD SERVICE SUPERVISOR Stuart Flores MD LAB BLOOD ORDERABLES Final Resul t Performing Organization Address [facility] Co de Phone Number [facility] [place] [address] * (ABNORMAL) Phosphorus (09/24/2024 11:56 PM FIELD SERVICE SUPERVISOR) Pathologist [facility] Phosphorus, pl 6.9(H) 2.3 - 4.5 mg/dL Blood 09/24/2024 11:5 6 PM FIELD SERVICE SUPERVISOR 09/25/2024 12:07 AM FIELD SERVICE SUPERVISOR Najma Pires MD LAB BLOOD ORDERABLES Final Result Performing Organization Address [facility] de Phone Number [facility] [place] [address] * Magnesium (09/24/2024 11:56 PM FIELD SERVICE SUPERVISOR) [facility] Magnesium 2.4 1.4 - 2.5 mg/dL Blood 09/24/2024 11:5 6 PM FIELD SERVICE SUPERVISOR 09/25/2024 12:21 AM FIELD SERVICE SUPERVISOR Stuart Flores MD LAB BLOOD ORDERABLES Final Resul t Performing Organization Address [facility] de Phone Number [facility] [place] [address] * (ABNORMAL) Comprehensive metabolic panel (09/24/2024 11:56 PM FIELD SERVICE SUPERVISOR) Pathologist [facility] Sodium 136 135 - 145 mmol/L Potassium, pl 3.5 3.3 - 4.9 mmol/L [facility] Chloride 92(L) 97 - 110 mmol/L [facility] CO2 25 22 - 32 mmol/L [facility] Anion gap 19(H) 2 - 15 mmol/L [facility] BUN 77(H) 6 - 25 mg/dL [facility] Creatinine 3.63(H) 0.60 - 1.10 mg/dL [facility] Glucose 410(H) 70 - 199 mg/dL [facility] Comment: Interpretive Data Fasting glucose >/= 126 [...] 2022. Calcium 10.6(H) 8.5 - 10.3 mg/dL [facility] Bilirubin, total 2.3(H) 0.1 - 1.2 mg/dL [facility] Protein, pl 7.0 6.5 - 8.5 g/dL [facility] Albumin 3.3(L) 3.5 - 5.0 g/dL [facility] Alk phos 122 40 - 130 Units/L [facility] ALT 21 7 - 45 Units/L [facility] AST 47(H) 10 - 45 Units/L [facility] Blood 09/24/2024 11:5 6 PM FIELD SERVICE SUPERVISOR 09/25/2024 12:07 AM FIELD SERVICE SUPERVISOR us Najma Pires MD LAB BLOOD ORDERABLES Final Result [facility] Department [place] [address] * (ABNORMAL) Sepsis Lactate w/ Reflex (09/24/2024 11:55 PM FIELD SERVICE SUPERVISOR) Sepsis Lactate 5.1(C) 0.7 - 2.0 mmol/L Blood 09/24/2024 11:5 5 PM FIELD SERVICE SUPERVISOR 09/25/2024 12:16 AM FIELD SERVICE SUPERVISOR us Britany Knight MD LAB BLOOD ORDERABLES Final Res ult [facility] [place] [address] * Critical Result Callback Chemistry (09/24/2024 11:55 PM FIELD SERVICE SUPERVISOR) Date Notified 20240925 Time Notified 38 [facility] TestName Sepsis Lactate [facility] Called/Read Back Katia [facility] Credentials RN [facility] Called By SHASTA [facility] Blood 09/24/2024 11:5 5 PM FIELD SERVICE SUPERVISOR 09/25/2024 12:16 AM FIELD SERVICE SUPERVISOR us Britany Knight MD LAB BLOOD ORDERABLES Final Res ult Performing Organization Address City/[facility]/ZIP Co de Phone Number [facility] [place] [address] * (ABNORMAL) POCT glucose (09/24/2024 11:08 PM FIELD SERVICE SUPERVISOR) Pathologist [facility] Glucose, POC 363(H) 70 - 199 mg/dL Blood 09/24/2024 11:0 8 PM FIELD SERVICE SUPERVISOR 09/24/2024 11:08 PM FIELD SERVICE SUPERVISOR us Stuart Flores MD LAB POCT ORDERABLES - DEVICE Fin al Result Performing Organization Address [facility] Co de Phone Number [facility] [place] [address] * XR Chest 1 View (09/24/2024 11:02 PM FIELD SERVICE SUPERVISOR) Anatomical Region Laterality Modality Body, Chest N/A Computed Radiogr aphy 09/25/2024 10:0 6 AM FIELD SERVICE SUPERVISOR Impressions 09/25/2024 10:06 AM FIELD SERVICE SUPERVISOR Comparison is made to prior from 09/24/2024. Nasogastric tube terminates below the diaphragms. Heart size is normal. Lungs are clear. No pleural effusion or pneumothorax. Electronically signed by: Louie Lynne M.D. Narrative 09/25/2024 10:06 AM FIELD SERVICE SUPERVISOR EXAMINATION: 1 view chest radiograph Procedure Note [...] US Liver Doppler Complete (09/24/2024 9:07 PM FIELD SERVICE SUPERVISOR) Anatomical Region Laterality Modality Vascular N/A Ultrasound 09/25/2024 8:56 AM FIELD SERVICE SUPERVISOR Impressions 09/25/2024 12:48 PM FIELD SERVICE SUPERVISOR 1. Reversed flow within the portosystemic confluence, [...] Juan Morris M.D. Narrative 09/25/2024 12:48 PM FIELD SERVICE SUPERVISOR EXAMINATION: US LIVER DOPPLER COMPLETE HISTORY: 63 [...] * (ABNORMAL) POCT glucose (09/24/2024 8:08 PM FIELD SERVICE SUPERVISOR) Glucose, POC 384(H) 70 - 199 mg/dL Comment:Glu2: RN/MD Notified Glucose comment 1 Glu2: RN/MD Notified [facility] Blood 09/24/2024 8:08 PM FIELD SERVICE SUPERVISOR 09/24/2024 8:08 PM FIELD SERVICE SUPERVISOR us Stuart Flores MD LAB POCT ORDERABLES - DEVICE Fin al Result [facility] Department [place] [address] * [place] CRITICAL CARE ILL/INJURED PATIENT INIT 30-74 MIN (09/24/2024 4:23 PM FIELD SERVICE SUPERVISOR) Narrative Paxton Hawk MD - 09/24/2024 4:23 PM FIELD SERVICE SUPERVISOR Paxton Hawk MD 09/24/2024 4:25 PM Critical [...] spent time documenting in the medical record. Peter Lanza MD PhD IN CLINIC/BEDSIDE ORDER [place] Final Result * (ABNORMAL) Sepsis Lactate w/ Reflex (09/24/2024 2:37 PM FIELD SERVICE SUPERVISOR) Pathologist [facility] Sepsis Lactate 4.1(C) 0.7 - 2.0 mmol/L Comment:reviewed Blood 09/24/2024 2:37 PM FIELD SERVICE SUPERVISOR 09/24/2024 2:44 PM FIELD SERVICE SUPERVISOR Britany Knight MD LAB BLOOD ORDERABLES Final Res ult Performing Organization Address City/[facility]/ZIP Co de Phone Number [facility] Department [place] [address] * Critical Result Callback Chemistry (09/24/2024 2:37 PM FIELD SERVICE SUPERVISOR) Pathologist [facility] Date Notified 20240924 Time Notified 1451 [facility] TestName Sepsis Lactate [facility] Called/Read Back Britany Knight [facility] Credentials RN [facility] Called By ra [facility] Blood 09/24/2024 2:37 PM FIELD SERVICE SUPERVISOR 09/24/2024 2:44 PM FIELD SERVICE SUPERVISOR Britany Knight MD LAB BLOOD ORDERABLES Final Res ult [facility] Department [place] [address] * (ABNORMAL) Troponin I high-sensitivity 2-hour (09/24/2024 2:36 PM FIELD SERVICE SUPERVISOR) Pathologist [facility] Trop I hs 26(H) <=17 ng/L Comment: Interpretive Data For further hscTnI resources including the diagnostic algorithm and an aid in interpretation, copy and paste this link: [email or web address].testcatalog.org/show/[email or web address] Current Interpretive Data last revised 2020. Trop I hs delta 2 ng/L [facility] Trop I hs interp Insignificant [facility] Blood 09/24/2024 2:36 PM FIELD SERVICE SUPERVISOR 09/24/2024 3:01 PM FIELD SERVICE SUPERVISOR Britany Knight MD LAB BLOOD ORDERABLES Final Res ult [facility] Department [place] [address] * Blood culture Blood (09/24/2024 2:36 PM FIELD SERVICE SUPERVISOR) Report Final Report: No growth Blood 09/24/2024 2:36 PM FIELD SERVICE SUPERVISOR 09/24/2024 2:44 PM FIELD SERVICE SUPERVISOR Narrative [facility] - 09/29/2024 3:10 PM FIELD SERVICE SUPERVISOR Collection->Peripheral 1. Blood cultures are incubated for [...] performance characteristics have been verified by the [facility] Microbiology Laboratory. For questions about this culture, contact the Microbiology Laboratory at [phone]. Interpretive data was last revised on 24. Britany Knight MD LAB MICROBIOLOGY - GENERAL ORD ERABLES Final Result Performing Organization Address [facility]/ZIP Co de Phone Number [facility] Department [place] [address] * Respiratory pathogen panel Nasopharyngeal (09/24/2024 1:39 PM FIELD SERVICE SUPERVISOR) Pathologist [facility] Influenza A RNA Not Detected Not Detected Influenza B RNA Not Detected Not Detected [facility] RSV RNA Not Detected Not Detected [facility] COVID-19 RNA Not Detected Not Detected [facility] Coronavirus 229E RNA Not Detected Not Detected [facility] Coronavirus HKU1 RNA Not Detected Not Detected [facility] Coronavirus NL63 RNA Not Detected Not Detected [facility] Coronavirus OC43 RNA Not Detected Not Detected [facility] Adenovirus DNA Not Detected Not Detected [facility] Metapneumovirus RNA Not Detected Not Detected [facility] Rhinovirus/Enterov irus RNA Not Detected Not Detected [facility] Parainfluenza 1 RNA Not Detected Not Detected [facility] Parainfluenza 2 RNA Not Detected Not Detected [facility] Parainfluenza 3 RNA Not Detected Not Detected [facility] Parainfluenza 4 RNA Not Detected Not Detected [facility] B. pertussis DNA Not Detected Not Detected [facility] B. parapertussis DNA Not Detected Not Detected [facility] C. pneumoniae DNA Not Detected Not Detected [facility] M. pneumoniae DNA Not Detected Not Detected [facility] Nasopharyngeal 09/24/2024 1: 39 PM FIELD SERVICE SUPERVISOR 09/24/2024 1:49 PM FIELD SERVICE SUPERVISOR Narrative [facility] - 09/24/2024 3:12 PM FIELD SERVICE SUPERVISOR Is the Patient experiencing symptoms consistent with COVID?->Yes Surveillance testing for transplant patient?->No Interpretive Data [employer] FilmArray Respiratory Panel (RP2.1) assay is a [...] assay has FDA clearance for testing of LITHOGRAPHIC PRESS FEEDER swabs. The performance of additional specimen types has been assessed by the performing laboratory. The performance characteristics of this assay have been determined by [facility] Molecular Infectious Disease Laboratory. Current interpretive data was last revised on 22. Britany Knight MD LAB MICROBIOLOGY - GENERAL ORD ERABLES Final Result [facility] Department [place] [address] * Blood culture Blood (09/24/2024 1:39 PM FIELD SERVICE SUPERVISOR) Report Final Report: No growth Blood 09/24/2024 1:39 PM FIELD SERVICE SUPERVISOR 09/24/2024 1:50 PM FIELD SERVICE SUPERVISOR Narrative [facility] - 09/29/2024 3:05 PM FIELD SERVICE SUPERVISOR Collection->Peripheral 1. Blood cultures are incubated for [...] performance characteristics have been verified by the [facility] Microbiology Laboratory. For questions about this culture, contact the Microbiology Laboratory at [phone]. Interpretive data was last revised on 24. us Britany Knight MD LAB MICROBIOLOGY - GENERAL ORD ERABLES Final Result [facility] Department [place] [address] * XR Chest 1 Vw Portable (09/24/2024 12:59 PM FIELD SERVICE SUPERVISOR) Anatomical Region Laterality Modality Body, Chest N/A Computed Radiogr aphy 09/24/2024 1:05 PM FIELD SERVICE SUPERVISOR Impressions 09/24/2024 1:05 PM FIELD SERVICE SUPERVISOR Comparison April 2024. Small lung volumes with mild scattered atelectasis throughout the lung. Given some limitations of portable technique, No focal consolidation suspicious for pneumonia. No pulmonary edema, pleural effusion, or pneumothorax. The heart and mediastinal contours are unchanged. Electronically signed by: Mohinder Ferro M.D. Narrative 09/24/2024 1:05 PM FIELD SERVICE SUPERVISOR EXAMINATION: 1 view chest radiograph Procedure Note [...] * POCT ketone, blood (09/24/2024 12:40 PM FIELD SERVICE SUPERVISOR) Pathologist [facility] Ketones, Blood, POC 0.4 0.0 - 0.5 mmol/L Blood 09/24/2024 12:4 0 PM FIELD SERVICE SUPERVISOR 09/24/2024 12:40 PM FIELD SERVICE SUPERVISOR Stuart Flores MD LAB POCT ORDERABLES - DEVICE Fin al Result Performing Organization Address [facility]/ZIP Co de Phone Number [facility] Department [place] [address] * (ABNORMAL) POCT glucose (09/24/2024 12:37 PM FIELD SERVICE SUPERVISOR) [facility] Glucose, POC 329(H) 70 - 199 mg/dL Blood 09/24/2024 12:3 7 PM FIELD SERVICE SUPERVISOR 09/24/2024 12:37 PM FIELD SERVICE SUPERVISOR Louie Malone MD LAB POCT ORDERABLES - DEVICE Final Result Performing Organization Address City/[facility] Co de Phone Number [facility] Department [place] [address] * (ABNORMAL) Troponin I high-sensitivity series (baseline, 2hr, 4hr, 6hr) (09/24/2024 12:35 PM FIELD SERVICE SUPERVISOR) Pathologist [facility] Trop I hs 24(H) <=17 ng/L Comment: Interpretive Data For [facility] resources including the diagnostic algorithm and an aid in interpretation, copy and paste this link: [email or web address]/show/[email or web address] Current Interpretive Data last revised 2020. Blood 09/24/2024 12:3 5 PM FIELD SERVICE SUPERVISOR 09/24/2024 12:59 PM FIELD SERVICE SUPERVISOR Britany Knight MD LAB BLOOD ORDERABLES Final Res ult Performing Organization Address City/[facility]/ZIP Co de Phone Number [facility] [place] [address] * (ABNORMAL) Sepsis Lactate w/ Reflex (09/24/2024 12:35 PM FIELD SERVICE SUPERVISOR) Sepsis Lactate 4.4(C) 0.7 - 2.0 mmol/L Blood 09/24/2024 12:3 5 PM FIELD SERVICE SUPERVISOR 09/24/2024 12:48 PM FIELD SERVICE SUPERVISOR Britany Knight MD LAB BLOOD ORDERABLES Final Res ult Performing Organization Address [facility] de Phone Number [facility] [place] [place] [address] * (ABNORMAL) eGFR (09/24/2024 12:35 PM FIELD SERVICE SUPERVISOR) eGFR 18(L) >=60 mL/min/1. 73 m2 Comment: [...] reviewed 2021. Blood 09/24/2024 12:3 5 PM FIELD SERVICE SUPERVISOR 09/24/2024 12:59 PM FIELD SERVICE SUPERVISOR us Britany Knight MD LAB BLOOD ORDERABLES Final Res ult [facility] Department [place] [address] * Differential, auto (09/24/2024 12:35 PM FIELD SERVICE SUPERVISOR) Neutrophil abs 5.4 1.5 - 6.5 K/cumm Imm gran abs 0.0 0.0 - 0.1 K/cumm [facility] Lymphocyte abs 0.9 0.8 - 3.3 K/cumm [facility] Monocyte abs 0.6 0.2 - 0.8 K/cumm [facility] Eosinophil abs 0.2 0.0 - 0.5 K/cumm [facility] Basophil abs 0.0 0.0 - 0.1 K/cumm [facility] Neutrophil pct 74.8 % [facility] Comment: Interpretive Data Percent cell count reference ranges are not reported, since discordance with absolute values may lead to misinterpretation of CBC data. Current Interpretive Data was last revised on 2017. Imm gran pct 0.6 % [facility] Comment: Interpretive Data Percent cell count reference ranges are not reported, since discordance with absolute values may lead to misinterpretation of CBC data. Current Interpretive Data was last revised on 2017. Lymphocyte pct 12.7 % [facility] Comment: Interpretive Data Percent cell count reference ranges are not reported, since discordance with absolute values may lead to misinterpretation of CBC data. Current Interpretive Data was last revised on 2017. Monocyte pct 8.7 % [facility] Comment: Interpretive Data Percent cell count reference ranges are not reported, since discordance with absolute values may lead to misinterpretation of CBC data. Current Interpretive Data was last revised on 2017. Eosinophil pct 2.9 % [facility] Comment: Interpretive Data Percent cell count reference ranges are not reported, since discordance with absolute values may lead to misinterpretation of CBC data. Current Interpretive Data was last revised on 2017. Basophil pct 0.3 % [facility] Comment: Interpretive Data Percent cell count reference ranges are not reported, since discordance with absolute values may lead to misinterpretation of CBC data. Current Interpretive Data was last revised on 2017. Blood 09/24/2024 12:3 5 PM FIELD SERVICE SUPERVISOR 09/24/2024 12:59 PM FIELD SERVICE SUPERVISOR Britany Knight MD LAB BLOOD ORDERABLES Final Res ult [facility] Department [place] [address] * Critical Result Callback Chemistry (09/24/2024 12:35 PM FIELD SERVICE SUPERVISOR) Date Notified 20240924 Time Notified [facility] TestName Sepsis Lactate [facility] Called/Read Back Lauren [facility] Credentials RN [facility] Called By kati DUNNE Blood 09/24/2024 12:3 5 PM FIELD SERVICE SUPERVISOR 09/24/2024 12:48 PM FIELD SERVICE SUPERVISOR Britany Knight MD LAB BLOOD ORDERABLES Final Res ult [facility] Department [place] [address] * (ABNORMAL) CBC with auto differential (09/24/2024 12:35 PM FIELD SERVICE SUPERVISOR) WBC 7.2 3.8 - 9.9 K/cumm Hgb 14.7 11.9 - 15.5 g/dL [facility] Hct 42.0 35.6 - 45.5 % [facility] Plt 101(L) 150 - 400 K/cumm [facility] MPV 12.0 9.1 - 12.3 fL [facility] RBC 4.72 3.90 - 5.20 M/cumm [facility] MCV 89.0 81.3 - 96.4 fL [facility] MCH 31.1 27.1 - 33.3 pg [facility] MCHC 35.0 32.3 - 35.7 g/dL [facility] RDW CV 14.5 11.1 - 14.9 % [facility] RDW SD 46.3 35.7 - 48.1 fL [facility] NRBC abs 0.00 0.00 - 0.01 K/cumm [facility] Blood 09/24/2024 12:3 5 PM FIELD SERVICE SUPERVISOR 09/24/2024 12:59 PM FIELD SERVICE SUPERVISOR Britany Knight MD LAB BLOOD ORDERABLES Final Res ult Performing Organization Address [facility] Co de Phone Number [facility] [place] [address] * aPTT (09/24/2024 12:35 PM FIELD SERVICE SUPERVISOR) aPTT 33 28 - 38 sec Comment: Interpretive Data Heparin therapeutic range: 66.0 - 100.0 seconds. Range based on correlation with therapeutic heparin activity range of 0.3 - 0.7 Units/mL. Current interpretive data was last revised on 2023. Blood 09/24/2024 12:3 5 PM FIELD SERVICE SUPERVISOR 09/24/2024 12:52 PM FIELD SERVICE SUPERVISOR Britany Knight MD LAB BLOOD ORDERABLES Final Res ult Performing Organization Address City/[facility] Co de Phone Number [facility] [place] [place] [address] * (ABNORMAL) Protime-INR (09/24/2024 12:35 PM FIELD SERVICE SUPERVISOR) PT 14.1(H) 9.7 - 13.0 sec INR 1.30(H) 0.90 - 1.20 [facility] Comment: Interpretive data Oral anticoagulant therapeutic ranges: Venous thromboembolism prophylaxis or treatment: 2.0-3.0 CARDIOLOGY Standard range: 2.0-3.0 High-intensity range: 2.5-3.5 Refer to indication-specific guidelines for appropriate target ranges for prosthetic heart valve replacement. Current interpretive data was last revised on 2019. Blood 09/24/2024 12:3 5 PM FIELD SERVICE SUPERVISOR 09/24/2024 12:52 PM FIELD SERVICE SUPERVISOR Britany Knight MD LAB BLOOD ORDERABLES Final Res ult Performing Organization Address [facility] Co de Phone Number [facility] [place] [address] * Type and screen (09/24/2024 12:35 PM FIELD SERVICE SUPERVISOR) Rosemarie, indirect Negative ABO Rh A Positive [facility] Blood 09/24/2024 12:3 5 PM FIELD SERVICE SUPERVISOR 09/24/2024 1:15 PM FIELD SERVICE SUPERVISOR Narrative [facility] - 09/24/2024 2:15 PM FIELD SERVICE SUPERVISOR Has the patient had Daratumumab or Isatuximab in the past 6 months?->Unknown Britany Knight MD LAB BLOOD BANK TEST ORDERABLES Final Result Performing Organization Address [facility] Co de Phone Number [facility] [place] [address] * Blood gas, venous (09/24/2024 12:35 PM FIELD SERVICE SUPERVISOR) pH, Venous 7.39 7.32 - 7.43 PCO2, Venous 48 40 - 50 mmHg [facility] PO2, Venous 37 mmHg [facility] Comment: Interpretive Data No Reference Range Established Current Interpretive Data was last revised on 2017. HCO3 Venous, Calculated 30 20 - 30 mmol/L [facility] BE, venous 3 mmol/L [facility] Comment: Interpretive Data No Reference Range Established Current Interpretive Data was last revised on 2017. Blood 09/24/2024 12:3 5 PM FIELD SERVICE SUPERVISOR 09/24/2024 12:48 PM FIELD SERVICE SUPERVISOR Result [facility] us Britany Knight MD LAB BLOOD ORDERABLES Final Res ult Performing Organization Address [facility] de Phone Number [facility] [place] [address] * (ABNORMAL) Ammonia (09/24/2024 12:35 PM FIELD SERVICE SUPERVISOR) Ammonia 95(H) <=50 mcmol/L Blood 09/24/2024 12:3 5 PM FIELD SERVICE SUPERVISOR 09/24/2024 12:52 PM FIELD SERVICE SUPERVISOR Result [facility] Britany Knight MD LAB BLOOD ORDERABLES Final Res ult Performing Organization Address [facility] de Phone Number [facility] [place] [address] * (ABNORMAL) Hepatic function panel (09/24/2024 12:35 PM FIELD SERVICE SUPERVISOR) Bilirubin, total 3.0(H) 0.1 - 1.2 mg/dL Bilirubin, direct 1.0(H) 0.1 - 0.3 mg/dL [facility] Protein, pl 7.1 6.5 - 8.5 g/dL [facility] Albumin 3.2(L) 3.5 - 5.0 g/dL [facility] Alk phos 118 40 - 130 Units/L [facility] ALT 18 7 - 45 Units/L [facility] AST 53(H) 10 - 45 Units/L [facility] Blood 09/24/2024 12:3 5 PM FIELD SERVICE SUPERVISOR 09/24/2024 12:59 PM FIELD SERVICE SUPERVISOR Result [facility] Britany Knight MD LAB BLOOD ORDERABLES Final Res ult Performing Organization Address [facility] de Phone Number [facility] Department [place] [address] * (ABNORMAL) Basic metabolic panel (09/24/2024 12:35 PM FIELD SERVICE SUPERVISOR) Sodium 133(L) 135 - 145 mmol/L Potassium, pl 3.5 3.3 - 4.9 mmol/L [facility] Chloride 90(L) 97 - 110 mmol/L [facility] CO2 26 22 - 32 mmol/L [facility] Anion gap 17(H) 2 - 15 mmol/L [facility] BUN 64(H) 6 - 25 mg/dL [facility] Creatinine 2.92(H) 0.60 - 1.10 mg/dL [facility] Glucose 349(H) 70 - 199 mg/dL [facility] Comment: Interpretive Data Fasting glucose >/= 126 [...] 2022. Calcium 11.1(H) 8.5 - 10.3 mg/dL [facility] Blood 09/24/2024 12:3 5 PM FIELD SERVICE SUPERVISOR 09/24/2024 12:59 PM FIELD SERVICE SUPERVISOR us Britany Knight MD LAB BLOOD ORDERABLES Final Res ult CHARISSA [facility] Department [place] [address] * Neuro CT Outside Consult (09/24/2024 12:33 PM FIELD SERVICE SUPERVISOR) Anatomical Region Laterality Modality N/A Computed Tomogra phy 09/24/2024 12:4 7 PM FIELD SERVICE SUPERVISOR Impressions 09/24/2024 12:47 PM FIELD SERVICE SUPERVISOR No acute intracranial abnormality. The findings and impression are based on the available images, which may not be treasury representative of the entire organ or disease entity. Also note that ultrasound image acquisition is paraffin machine operator dependent, and that the study was performed outside our facility with no control over image acquisition. In addition, the provided images may or may not represent the [place] source data set and thus may contain [...] Anastacio Rivera MD Narrative 09/24/2024 12:47 PM FIELD SERVICE SUPERVISOR EXAMINATION: RADIOLOGY CONSULTATION ON OUTSIDE IMAGING STUDY STUDY INITIALLY PERFORMED: 09/24/2024 at [facility]. TYPE OF STUDY: Multiple CT images without [...] IMAGING STUDY STUDY INITIALLY PERFORMED: 09/24/2024 at [facility]. TYPE OF STUDY: Multiple CT images without [...] the available images, which may not be treasury representative of the entire organ or disease entity. Also note that ultrasound image acquisition is paraffin machine operator dependent, and that the study was performed outside our facility with no control over image acquisition. In addition, the provided images may or may not represent the [place] source data set and thus may contain [...] * XR Outside Reference (09/24/2024 12:28 PM FIELD SERVICE SUPERVISOR) Impressions [facility] - 09/24/2024 12:28 PM FIELD SERVICE SUPERVISOR These images are for Reference purposes only and have not been reviewed by [facility] Radiology. There will be no report generated by a [facility] Radiologist. Narrative [facility] - 09/24/2024 12:28 PM FIELD SERVICE SUPERVISOR EXAMINATION: Images For Reference Purposes Only Britany Knight MD IMG XR PROCEDURES Final Result [facility] * HLA Antibody Screen by PRA or SAB per Schedule (Class I and Class II) (09/21/2024 1:00 PM FIELD SERVICE SUPERVISOR) Blood 09/21/2024 1:00 PM FIELD SERVICE SUPERVISOR Narrative [facility] - FIELD SERVICE SUPERVISOR Sample received in lab. Single Antigen Antibody Screen ordered. Timothy Pardo MD LAB BLOOD ORDERABL ES Final Result [facility] * HLA Antibody Screen - SAB (Class I and Class II) (09/21/2024 1:00 PM FIELD SERVICE SUPERVISOR) Class I Treatment EDTA [facility] Class I [...] DR10, DR12, DR52 [facility] 09/21/2024 1:00 PM FIELD SERVICE SUPERVISOR 09/29/2024 9:55 AM FIELD SERVICE SUPERVISOR Narrative [facility] - 09/29/2024 9:55 AM FIELD SERVICE SUPERVISOR Single-antigen HLA antibody screen is performed on serum samples using a method developed and validated by the [facility] HLA laboratory based on an FDA-approved IVD kit (LABScreen Single-Antigen, [address], [place], [place]). All patient serum samples are pretreated with EDTA before the screen to prevent complement interference. Additional serum treatments, such as adsorption and DTT treatment, may be performed as indicated. Interpretive comments: Low risk: MFI [id number]. Moderate risk: MFI [id number]. Increased risk: MFI >/= 5000. The presence [...] antigens to avoid. Testing performed at the [facility], [address] [place] [address], 5th floor, [place], [address]. [place] # [id number]. Rani Smith, Ph.D., Field Care Manager, HLA Laboratory Aurelio Palafox M.D., Ph.D., Pulmonary Function Technician, HLA Laboratory Norma Talamantes, Ph.D., CLIA Pulmonary Function Technician, [facility] Current methodology and interpretive comments last revised on 09/06/2022. Timothy Pardo MD LAB BLOOD ORDERABL ES Final Result [facility] * SCAN - LABS (09/07/2024) us Provider Scanning Final Result * (ABNORMAL) eGFR (08/27/2024 1:35 PM FIELD SERVICE SUPERVISOR) eGFR 31(L) >=60 mL/min/1. 73 m2 Comment: [...] last reviewed 2021. Blood 08/27/2024 1:35 PM FIELD SERVICE SUPERVISOR 08/27/2024 1:59 PM FIELD SERVICE SUPERVISOR Taiwo Vázquez MD LAB BLOOD ORDERABLES Fin al Result Performing Organization Address [facility] de Phone Number [facility] Department [place] [address] * (ABNORMAL) Protime-INR (08/27/2024 1:35 PM FIELD SERVICE SUPERVISOR) PT 14.1(H) 9.7 - 13.0 sec INR 1.30(H) 0.90 - 1.20 [facility] Comment: Interpretive data Oral anticoagulant therapeutic ranges: Venous thromboembolism prophylaxis or treatment: 2.0-3.0 CARDIOLOGY Standard range: 2.0-3.0 High-intensity range: 2.5-3.5 Refer to indication-specific guidelines for appropriate target ranges for prosthetic heart valve replacement. Current interpretive data was last revised on 2019. Blood 08/27/2024 1:35 PM FIELD SERVICE SUPERVISOR 08/27/2024 1:48 PM FIELD SERVICE SUPERVISOR Taiwo Vázquez MD LAB BLOOD ORDERABLES Fin al Result Performing Organization Address [facility] de Phone Number [facility] Department [place] [address] * (ABNORMAL) Comprehensive metabolic panel (08/27/2024 1:35 PM FIELD SERVICE SUPERVISOR) Sodium 136 135 - 145 mmol/L Potassium, pl 3.6 3.3 - 4.9 mmol/L [facility] Chloride 101 97 - 110 mmol/L [facility] CO2 28 22 - 32 mmol/L [facility] Anion gap 7 2 - 15 mmol/L [facility] BUN 29(H) 6 - 25 mg/dL [facility] Creatinine 1.81(H) 0.60 - 1.10 mg/dL [facility] Glucose 293(H) 70 - 199 mg/dL [facility] Comment: Interpretive Data Fasting glucose >/= 126 [...] 2022. Calcium 8.9 8.5 - 10.3 mg/dL [facility] Bilirubin, total 2.4(H) 0.1 - 1.2 mg/dL [facility] Protein, pl 6.1(L) 6.5 - 8.5 g/dL [facility] Albumin 3.0(L) 3.5 - 5.0 g/dL [facility] Alk phos 100 40 - 130 Units/L [facility] ALT 21 7 - 45 Units/L [facility] AST 31 10 - 45 Units/L [facility] Blood 08/27/2024 1:35 PM FIELD SERVICE SUPERVISOR 08/27/2024 1:48 PM FIELD SERVICE SUPERVISOR us Taiwo Vázquez MD LAB BLOOD ORDERABLES Fin al Result [facility] Department [place] [address] * HLA Antibody Screen by PRA or SAB per Schedule (Class I and Class II) (08/24/2024 10:00 AM FIELD SERVICE SUPERVISOR) Blood 08/24/2024 10:0 0 AM FIELD SERVICE SUPERVISOR Narrative [facility] - FIELD SERVICE SUPERVISOR Sample received in lab and stored. No testing performed at this time. Timothy Pardo MD LAB BLOOD ORDERABL ES Final Result [facility] * SCAN - LABS (08/24/2024) Provider Scanning Final Result * (ABNORMAL) Urinalysis reflex to microscopic and culture Urine (08/06/2024 5:12 PM FIELD SERVICE SUPERVISOR) Color, ur Straw Yellow Clarity, ur Clear [...] tendency for uric acid stone formation. Source: [employer] Current Interpretive Data was last revised on [...] performed. [facility] Urine 08/06/2024 5:12 PM FIELD SERVICE SUPERVISOR 08/06/2024 5:24 PM FIELD SERVICE SUPERVISOR Taiwo Vázquez MD LAB MICROBIOLOGY - GENER AL ORDERABLES Final Result Performing Organization Address [facility] Co de Phone Number CHARISSA ELIAS [address] [facility] [place] [address] * (ABNORMAL) Urinalysis, microscopic only (08/06/2024 5:12 PM FIELD SERVICE SUPERVISOR) WBC, ur 6-10(A) 0 - 5 /HPF RBC, ur 3-5(A) 0 - 2 /HPF [facility] Epithelial cells, squamous, ur 1-5 0 - 5 /HPF [facility] Mucous, ur Present(A) [facility] Hyaline casts, ur 11-20(A) 0 - 10 /LPF [facility] Culture Reflex Comment Reflex conditions for urine culture (WBC >10) not met. [facility] Urine 08/06/2024 5:12 PM FIELD SERVICE SUPERVISOR 08/06/2024 5:24 PM FIELD SERVICE SUPERVISOR Taiwo Vázquez MD LAB URINE ORDERABLES Fin al Result Performing Organization Address [facility] de Phone Number CHARISSA ELIAS [address] [facility] [place] [address] * (ABNORMAL) eGFR (08/06/2024 5:04 PM FIELD SERVICE SUPERVISOR) eGFR 34(L) >=60 mL/min/1. 73 m2 Comment: [...] last reviewed 2021. Blood 08/06/2024 5:04 PM FIELD SERVICE SUPERVISOR 08/06/2024 5:24 PM FIELD SERVICE SUPERVISOR us Taiwo Vázquez MD LAB BLOOD ORDERABLES Fin al Result [facility] [address] [facility]. [facility] [place] [address] * (ABNORMAL) Differential, auto (08/06/2024 5:04 PM FIELD SERVICE SUPERVISOR) Neutrophil abs 2.8 1.5 - 6.5 K/cumm Imm gran abs 0.0 0.0 - 0.1 K/cumm [facility] Lymphocyte abs 1.3 0.8 - 3.3 K/cumm [facility] Monocyte abs 0.5 0.2 - 0.8 K/cumm [facility] Eosinophil abs 0.9(H) 0.0 - 0.5 K/cumm [facility] Basophil abs 0.0 0.0 - 0.1 K/cumm [facility] Neutrophil pct 50.9 % [facility] Comment: Interpretive Data Percent cell count reference ranges are not reported, since discordance with absolute values may lead to misinterpretation of CBC data. Current Interpretive Data was last revised on 2017. Imm gran pct 0.4 % [facility] Comment: Interpretive Data Percent cell count reference ranges are not reported, since discordance with absolute values may lead to misinterpretation of CBC data. Current Interpretive Data was last revised on 2017. Lymphocyte pct 23.9 % [facility] Comment: Interpretive Data Percent cell count reference ranges are not reported, since discordance with absolute values may lead to misinterpretation of CBC data. Current Interpretive Data was last revised on 2017. Monocyte pct 8.2 % [facility] Comment: Interpretive Data Percent cell count reference ranges are not reported, since discordance with absolute values may lead to misinterpretation of CBC data. Current Interpretive Data was last revised on 2017. Eosinophil pct 16.2 % [facility] Comment: Interpretive Data Percent cell count reference ranges are not reported, since discordance with absolute values may lead to misinterpretation of CBC data. Current Interpretive Data was last revised on 2017. Basophil pct 0.4 % [facility] Comment: Interpretive Data Percent cell count reference ranges are not reported, since discordance with absolute values may lead to misinterpretation of CBC data. Current Interpretive Data was last revised on 2017. Blood 08/06/2024 5:04 PM FIELD SERVICE SUPERVISOR 08/06/2024 5:24 PM FIELD SERVICE SUPERVISOR Taiwo Vázquez MD LAB BLOOD ORDERABLES Fin al Result [facility] [address] [facility] Department [place] [address] * (ABNORMAL) CBC with auto differential (08/06/2024 5:04 PM FIELD SERVICE SUPERVISOR) Pathologist [facility] WBC 5.5 3.8 - 9.9 K/cumm Hgb 12.3 11.9 - 15.5 g/dL [facility] Hct 35.1(L) 35.6 - 45.5 % [facility] Plt 77(L) 150 - 400 K/cumm [facility] MPV 11.6 9.1 - 12.3 fL [facility] RBC 3.82(L) 3.90 - 5.20 M/cumm [facility] MCV 91.9 81.3 - 96.4 fL [facility] MCH 32.2 27.1 - 33.3 pg [facility] MCHC 35.0 32.3 - 35.7 g/dL [facility] RDW CV 15.7(H) 11.1 - 14.9 % [facility] RDW SD 52.0(H) 35.7 - 48.1 fL [facility] NRBC abs 0.00 0.00 - 0.01 K/cumm [facility] Blood 08/06/2024 5:04 PM FIELD SERVICE SUPERVISOR 08/06/2024 5:24 PM FIELD SERVICE SUPERVISOR Taiwo Vázquez MD LAB BLOOD ORDERABLES Fin al Result Performing Organization Address [facility] Co de Phone Number CHARISSA SOLERCH [address] [facility] [place] [address] * [id number], Tumor Marker (08/06/2024 5:04 PM FIELD SERVICE SUPERVISOR) alpha Fetoprotein <1.8 <=8.3 ng/mL Comment: Interpretive [...] ng/ml >1 year 0.0 8.3 ng/ml References Tsuchida Y. et al. J. Ped Surg 1978;13:155-156 Bertram S. et al. Clin Chem Lab Med 2018;57:783-797 Katya House et al. Clin Chem 2014;0595-3917. Current interpretive data was last revised 2022. Testing performed by: [facility], [address] [place] [address], [place]., [address] Blood 08/06/2024 5:04 PM FIELD SERVICE SUPERVISOR 08/06/2024 8:14 PM FIELD SERVICE SUPERVISOR Taiwo Vázquez MD LAB BLOOD ORDERABLES Fin al Result CHARISSA SOLERCH [address] [facility] [place] [address] * Blood culture Blood (08/06/2024 5:04 PM FIELD SERVICE SUPERVISOR) Report Final Report: No growth Comment:Testing performed by : [facility], [address] [facility], [place]., [address] Blood 08/06/2024 5:04 PM FIELD SERVICE SUPERVISOR 08/07/2024 12:05 PM FIELD SERVICE SUPERVISOR Narrative CHARISSA ELIAS - 08/12/2024 1:01 PM FIELD SERVICE SUPERVISOR Interpretive Data 1. Blood cultures are incubated and monitored continuously for 5 days (120 hours). The first negative report is issued within 24 hours of receipt in the laboratory. 2. All positive cultures are resulted and called to physicians/care providers as soon as they are detected. 3. A rapid molecular test for organism identification may be performed using the [employer] Blood Culture Identification panel. This assay detects microbial DNA in a blood culture broth. This assay has been cleared by the [place] Food and Drug Administration and its performance characteristics have been verified by the [facility] Microbiology Laboratory. Interpretive data was last revised on September 13, 2022. Taiwo Vázquez MD LAB MICROBIOLOGY - GENER AL ORDERABLES Final Result [facility] [address] [facility]. Department [place] [address] * (ABNORMAL) Protime-INR (08/06/2024 5:04 PM FIELD SERVICE SUPERVISOR) PT 14.1(H) 9.7 - 13.0 sec INR 1.30(H) 0.90 - 1.20 CHARISSA ELIAS Comment: Interpretive data Oral anticoagulant therapeutic ranges: Venous thromboembolism prophylaxis or treatment: 2.0-3.0 CARDIOLOGY Standard range: 2.0-3.0 High-intensity range: 2.5-3.5 Refer to indication-specific guidelines for appropriate target ranges for prosthetic heart valve replacement. Current interpretive data was last revised on 2019. Blood 08/06/2024 5:04 PM FIELD SERVICE SUPERVISOR 08/06/2024 5:24 PM FIELD SERVICE SUPERVISOR Taiwo Vázquez MD LAB BLOOD ORDERABLES Fin al Result Performing Organization Address [facility] de Phone Number CHARISSA [facility]UN[facility] [address] [facility] [place] [address] * (ABNORMAL) Hemoglobin A1c (08/06/2024 5:04 PM FIELD SERVICE SUPERVISOR) Hgb A1C 8.4(H) 4.0 - 5.6 % Estimated Average Glucose 194 mg/dL CHARISSA SOLER Comment: The ADA recommends reporting an estimated Average Glucose (eAG) with all Hemoglobin A1c results using the equation derived from a study of 507 normal and diabetic adults. Minority populations were underrepresented and children were not included. (Diabetes Care 31:7757-3351, 2008). The eAG is not equivalent to a fasting glucose. Blood 08/06/2024 5:04 PM FIELD SERVICE SUPERVISOR 08/06/2024 5:24 PM FIELD SERVICE SUPERVISOR Taiwo Vázquez MD LAB BLOOD ORDERABLES Fin al Result Performing Organization Address [facility] Phone Number CHARISSA DUNNEWCH [address] [facility] [place] [address] * (ABNORMAL) Bilirubin, direct (08/06/2024 5:04 PM FIELD SERVICE SUPERVISOR) Bilirubin, direct 0.6(H) 0.1 - 0.3 mg/dL Blood 08/06/2024 5:04 PM FIELD SERVICE SUPERVISOR 08/06/2024 5:24 PM FIELD SERVICE SUPERVISOR Taiwo Vázquez MD LAB BLOOD ORDERABLES Fin al Result Performing Organization Address [facility] de Phone Number CHARISSA [facility] [address] [facility] [place] [address] * (ABNORMAL) Comprehensive metabolic panel (08/06/2024 5:04 PM FIELD SERVICE SUPERVISOR) Sodium 134(L) 135 - 145 mmol/L Potassium, [...] Units/L [facility] Blood 08/06/2024 5:04 PM FIELD SERVICE SUPERVISOR 08/06/2024 5:24 PM FIELD SERVICE SUPERVISOR us Taiwo Vázquez MD LAB BLOOD ORDERABLES Fin al Result CHARISSA ELIAS [address] [facility]. Department [place] [address] * SCAN - LABS (08/03/2024) us Provider Scanning Final Result * (ABNORMAL) eGFR (07/30/2024 1:25 PM FIELD SERVICE SUPERVISOR) Pathologist [facility] eGFR 36(L) >=60 mL/min/1. 73 m2 Comment: [...] last reviewed 2021. Blood 07/30/2024 1:25 PM FIELD SERVICE SUPERVISOR 07/30/2024 1:39 PM FIELD SERVICE SUPERVISOR us Taiwo Vázquez MD LAB BLOOD ORDERABLES Fin al Result [facility] Department [place] [address] * (ABNORMAL) Comprehensive metabolic panel (07/30/2024 1:25 PM FIELD SERVICE SUPERVISOR) Pathologist [facility] Sodium 133(L) 135 - 145 mmol/L Potassium, pl 4.5 3.3 - 4.9 mmol/L [facility] Chloride 96(L) 97 - 110 mmol/L [facility] CO2 29 22 - 32 mmol/L [facility] Anion gap 8 2 - 15 mmol/L [facility] BUN 31(H) 6 - 25 mg/dL [facility] Creatinine 1.59(H) 0.60 - 1.10 mg/dL [facility] Glucose 327(H) 70 - 199 mg/dL [facility] Comment: Interpretive Data Fasting glucose >/= 126 [...] 2022. Calcium 9.7 8.5 - 10.3 mg/dL [facility] Bilirubin, total 2.2(H) 0.1 - 1.2 mg/dL [facility] Protein, pl 6.6 6.5 - 8.5 g/dL [facility] Albumin 3.2(L) 3.5 - 5.0 g/dL [facility] Alk phos 117 40 - 130 Units/L [facility] ALT 36 7 - 45 Units/L [facility] AST 42 10 - 45 Units/L [facility] Blood 07/30/2024 1:25 PM FIELD SERVICE SUPERVISOR 07/30/2024 1:36 PM FIELD SERVICE SUPERVISOR us Taiwo Vázquez MD LAB BLOOD ORDERABLES Fin al Result [facility] Department [place] [address] * (ABNORMAL) Differential, auto (07/30/2024 1:10 PM FIELD SERVICE SUPERVISOR) Pathologist [facility] Neutrophil abs 2.8 1.5 - 6.5 K/cumm Imm gran abs 0.0 0.0 - 0.1 K/cumm [facility] Lymphocyte abs 1.1 0.8 - 3.3 K/cumm [facility] Monocyte abs 0.5 0.2 - 0.8 K/cumm [facility] Eosinophil abs 0.8(H) 0.0 - 0.5 K/cumm [facility] Basophil abs 0.0 0.0 - 0.1 K/cumm [facility] Neutrophil pct 52.8 % [facility] Comment: Interpretive Data Percent cell count reference ranges are not reported, since discordance with absolute values may lead to misinterpretation of CBC data. Current Interpretive Data was last revised on 2017. Imm gran pct 0.2 % [facility] Comment: Interpretive Data Percent cell count reference ranges are not reported, since discordance with absolute values may lead to misinterpretation of CBC data. Current Interpretive Data was last revised on 2017. Lymphocyte pct 21.2 % [facility] Comment: Interpretive Data Percent cell count reference ranges are not reported, since discordance with absolute values may lead to misinterpretation of CBC data. Current Interpretive Data was last revised on 2017. Monocyte pct 10.1 % [facility] Comment: Interpretive Data Percent cell count reference ranges are not reported, since discordance with absolute values may lead to misinterpretation of CBC data. Current Interpretive Data was last revised on 2017. Eosinophil pct 14.9 % [facility] Comment: Interpretive Data Percent cell count reference ranges are not reported, since discordance with absolute values may lead to misinterpretation of CBC data. Current Interpretive Data was last revised on 2017. Basophil pct 0.8 % [facility] Comment: Interpretive Data Percent cell count reference ranges are not reported, since discordance with absolute values may lead to misinterpretation of CBC data. Current Interpretive Data was last revised on 2017. Blood 07/30/2024 1:10 PM FIELD SERVICE SUPERVISOR 07/30/2024 1:36 PM FIELD SERVICE SUPERVISOR Taiwo Vázquez MD LAB BLOOD ORDERABLES Fin al Result [facility] Department [place] [address] * (ABNORMAL) CBC with auto differential (07/30/2024 1:10 PM FIELD SERVICE SUPERVISOR) WBC 5.2 3.8 - 9.9 K/cumm Hgb 12.6 11.9 - 15.5 g/dL [facility] Hct 37.1 35.6 - 45.5 % [facility] Plt 64(L) 150 - 400 K/cumm [facility] MPV 12.3 9.1 - 12.3 fL [facility] RBC 4.07 3.90 - 5.20 M/cumm [facility] MCV 91.2 81.3 - 96.4 fL [facility] MCH 31.0 27.1 - 33.3 pg [facility] MCHC 34.0 32.3 - 35.7 g/dL [facility] RDW CV 15.4(H) 11.1 - 14.9 % [facility] RDW SD 51.0(H) 35.7 - 48.1 fL [facility] NRBC abs 0.00 0.00 - 0.01 K/cumm [facility] Blood 07/30/2024 1:10 PM FIELD SERVICE SUPERVISOR 07/30/2024 1:36 PM FIELD SERVICE SUPERVISOR Taiwo Vázquez MD LAB BLOOD ORDERABLES Fin al Result Performing Organization Address [facility] de Phone Number [facility] [facility] [place] [address] * (ABNORMAL) Protime-INR (07/30/2024 1:10 PM FIELD SERVICE SUPERVISOR) PT 15.1(H) 9.7 - 13.0 sec INR 1.39(H) 0.90 - 1.20 [facility] Comment: Interpretive data Oral anticoagulant therapeutic ranges: Venous thromboembolism prophylaxis or treatment: 2.0-3.0 CARDIOLOGY Standard range: 2.0-3.0 High-intensity range: 2.5-3.5 Refer to indication-specific guidelines for appropriate target ranges for prosthetic heart valve replacement. Current interpretive data was last revised on 2019. Blood 07/30/2024 1:10 PM FIELD SERVICE SUPERVISOR 07/30/2024 1:36 PM FIELD SERVICE SUPERVISOR Taiwo Vázquez MD LAB BLOOD ORDERABLES Fin al Result Performing Organization Address [facility] de Phone Number [facility] [place] [address] * HLA Antibody Screen by PRA or SAB per Schedule (Class I and Class II) (07/20/2024 10:00 AM FIELD SERVICE SUPERVISOR) Blood 07/20/2024 10:0 0 AM FIELD SERVICE SUPERVISOR Narrative [facility] - FIELD SERVICE SUPERVISOR Sample received in lab. Single Antigen Antibody Screen ordered. Timothy Pardo MD LAB BLOOD ORDERABL ES Final Result [facility] * HLA Antibody Screen - SAB (Class I and Class II) (07/20/2024 10:00 AM FIELD SERVICE SUPERVISOR) Class I Treatment EDTA [facility] Class I [...] DR12, DR52 [facility] 07/20/2024 10:0 0 AM FIELD SERVICE SUPERVISOR 07/23/2024 10:09 AM FIELD SERVICE SUPERVISOR Narrative [facility] - 07/23/2024 10:09 AM FIELD SERVICE SUPERVISOR Single-antigen HLA antibody screen is performed on serum samples using a method developed and validated by the [facility] HLA laboratory based on an FDA-approved IVD kit (LABScreen Single-Antigen, [employer], [facility] [place]). All patient serum samples are pretreated with EDTA before the screen to prevent complement interference. Additional serum treatments, such as adsorption and DTT treatment, may be performed as indicated. Interpretive comments: Low risk: MFI [id number]. Moderate risk: MFI [id number]. Increased risk: MFI >/= 5000. The presence [...] antigens to avoid. Testing performed at the [facility], [address] [place] [address], 5th floor, [place], [address]. IA # [id number]. Rani Smith, Ph.D., Field Care Manager, HLA Laboratory Aurelio Palafox M.D., Ph.D., Pulmonary Function Technician, HLA Laboratory Norma Talamantes, Ph.D., CLIA Pulmonary Function Technician, [facility] Clinical Laboratories Current methodology and interpretive comments last revised on 09/06/2022. us Timothy Pardo MD LAB BLOOD ORDERABL ES Final Result [facility] * SCAN - LABS (07/20/2024) us Provider Scanning Edited Result - Final * Pap and High Risk HPV and Genotyping (Cytology Component) (04/28/2024 10:41 AM CDT) Thin prep (Pap test) 04/28/2024 10:41 AM CDT 04/28/2024 1:00 PM CDT Narrative PATHOLOGY [facility] - 05/04/2024 4:21 PM CDT EPIC results best viewed via link to PDF [facility] Chelsea Cronin [facility] [place] [address] Note to Patients: This report may contain [...] REPORT FINAL Patient Name: NAEL LEVINE Gender: F : 1960 (Age: 63) Address: [address] [place], [place] [id number] Hospital #: [id number] Service: Medical Location: [place] [address] Patient Type: [facility] Inpatient Taken: 04/28/2024 Received: 04/28/2024 Accessioned: [...] this test have been verified by the [facility] Molecular Infectious Disease laboratory. Correlate with reported [...] clinical information and biopsy results as indicated. [facility] Clinical Laboratory Improvement Amendments (CLIA) mandate that cytologic and histologic results be correlated for laboratory quality assurance analyst & improvement standards. FOR ALL HIGH-GRADE CASES [...] determined by the Surgical Pathology Department at [facility] as part of an ongoing quality audit representative program and in compliance with federally mandated [...] determined by the Surgical Pathology Department of [facility]. It has not been cleared or approved by the U. S. Food and Drug Administration. us Eladio Carey MD LAB CYTOLOGY ORDERABLES Final Result PATHOLOGY [facility] 3rd Floor [place], [place] [phone] * Screening Mammogram Bilateral W Pal (04/27/2024 1:55 PM CDT) Anatomical Region Laterality Modality Breast Bilateral Mammography Narrative 04/27/2024 1:52 PM CDT Mammogram Technique: Bilateral Digital Breast Tomosynthesis, Bilateral C-view 2D Screening mammogram. Views obtained: bilateral craniocaudal and bilateral mediolateral oblique. Computer Aided Detection was performed. Mammogram Findings: The present examination has been compared to prior imaging studies performed at [facility] on 05/15/2021 and 12/06/2021. There are scattered [...] compared to prior imaging studies performed at [facility] on 05/15/2021 and 12/06/2021. There are scattered [...] revised on 2018. Triglycerides 43 <=149 mg/dL [facility] Comment: Interpretive Data Ages < or [...] revised on 2018. HDL 64 >=40 mg/dL [facility] Comment: Interpretive Data Ages < or [...] 2018. LDL, calculated 47 <=129 mg/dL [facility] Comment: Interpretive Data Ages < or [...] revised on 2024. Non-HDL Cholesterol 58 mg/dL [facility] Comment: Interpretive Data Ages < or = [...] last revised on 2018. Chol/HDL ratio 2 [facility] Blood 04/22/2024 12:5 8 AM CDT 04/22/2024 3:00 AM CDT us John Paul Reddy MD LAB BLOOD ORDERABLES Final Resul t [facility] One [facility] Department [place] [address] * Hepatitis C antibody Blood (06/16/2023 6:09 AM FIELD SERVICE SUPERVISOR) Hep C Ab Nonreactive Nonreactive [facility] Comment:Antibodies to HCV no t detected. Does NOT exclude the possibility of recent exposure to HCV. Current interpretive data was last revised on 22 Blood 06/16/2023 6:09 AM FIELD SERVICE SUPERVISOR 06/16/2023 6:35 AM FIELD SERVICE SUPERVISOR us Alejandro Frazier MD LAB MICROBIOLOGY - GENERAL ORDERABLES Final Result [facility] One [facility] Department [place] [address] * COLONOSCOPY (05/30/2022 9:28 AM CDT) Anatomical Region Laterality Modality Other Narrative Procedure Note Pat Robins MD - 05/30/2022 9:28 AM CDT GI ENDOSCOPY [facility] Patient Name: Nael Levine Procedure Date: 05/30/2022 9:28 AM Date of : 1960 Admit Type: Outpatient Age: 61 Gender: Female Attending MD: Pat Robins M.D. Room: [facility] ENDOSCOPY ROOM 3 Note Status: Finalized Procedure: [...] The scope was passed under direct vision.The [facility] [id number] endoscope was introducedthrough the anus and [...] On: 05/30/2022 9:28 AM Recognized by the [place] Society for Gastrointestinal Endoscopy for promoting quality in endoscopy us Pat Robins MD ENDOSCOPY PROCEDURES Ju l Result * Albumin Creatinine Ratio, Urine (03/01/2021 2:45 PM CDT) Albumin Ur <12.0 mg/L [facility] Comment: Interpretive Data No reference range established. Current interpretive data was last revised 2018. Creatinine Ur 59.5 mg/dL [facility] Comment: Interpretive Data No reference range established. Current interpretive data was last revised 2018. Albumin Creatinine Ratio, Ur <20 1 - 29 mg/g [facility] Urine 03/01/2021 2:45 PM CDT 03/01/2021 3:41 PM CDT us Oly Baker MD LAB URINE ORDER RAVEN Final Result [facility] One [facility] Department [place] [address] from Last 3 Months or Most Recently Relevant to Health Maintenance Additional Health Concerns Active Problems Noted Date Diagnosed Date Initial Follow-Up Appointment 10/05/2024 Note: Pt hospitalized for hepatic encephalopathy. 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 Epic risk 26 Barriers to Medication Adherence 10/05/2024 Problems In Home Environment 10/05/2024 Insurance [facility] EPO [email or web address] [place] ANTH ACCESS [email or web address] [facility] TRANS[facility]ANT [employer] MEDICARE SOLUTIONS MEDICARE SOLUTIONS TRANSPLANT [employer] MED[employer] RISK TRANSPLANT [employer] MED[employer] RISK TRANSPLANT [employer] RISK Advance Directives For more information, please contact: [phone] * Full Code (Latest Code Status on [...] 7:39 PM 01/08/2023 4:21 PM Care Teams Sneller Hand Relationship Specialty Start Date End Date Maddy Romano MD [address] [place] [address] PCP - General 09/28/16 Manas Ibarra MD [address] [place] [address] Referring Physician Thoracic Surgery 11/05/18 Zion Barton MD [address] [place] [address] Radiation Oncologist Radiation Oncology 05/05/19 Molina Charles MD 1 [facility] [address] [place] [address] Referring Physician Transplant Hepatology 12/15/20 Inés Lemus, TYRA [address] [facility] [address] [place] [address] Engineering Aide 10/31/21 Karuna Maria OT Occupational Therapist Occupational Therapy 09/20/22 Renu Treviño NP [address] [facility] [address] [place] [address] Nurse Practitioner Radiation Oncology 11/08/22 Eladio Mcrae MD [address] [place] [address] Referring Physician Obstetrics and Gynecology 11/15/22 Tamiko Schroeder, RN [address] [place] [address] Engineering Aide 04/27/24 Marina Le, RN [address] [facility] [address] [place] [address] SHOP Outpatient Forensic Structural Engineer 10/05/24
--- OUTSIDE RECORDS SUMMARY | 2024-10-05 17:12 | XMS_ITS | Encounter Summary ---
Author Organization [facility] Address [address] [place] [address] Phone Care Team Providers Care Network Coordinator Name Role Phone Maddy Romano MD Primary Care Provider Astrid Haq NP Unavailable Manas Ibarra MD Unavailable Zion Barton MD Unavailable Molina Charles MD Unavailable [phone] Inés Lemus RN Unavailable [phone] Karuna Maria OT Unavailable Unavaila Renu Paul NP Unavailable Eladio Mcrae MD Unavailable Tamiko Schroeder RN Unavailable [phone] Briana Poe RN Unavailable Marina Le RN [...] on file Legal Sex Female 8:22 AM SALES ASSOCIATE Gender Identity Female 11/15/2021 2:30 AM CDT [...] COVID: Suspected 09/24/2024 09/24/2024 09/24/2024 3:13 PM SALES ASSOCIATE documented as of this encounter Care Teams Network Coordinator Relationship Specialty Start Date End Date Maddy Romano MD [address] [place] [address] PCP - General 09/28/16 Astrid Haq NP [address] [place], [place] [address] Nurse Practitioner Radiation Oncology 11/05/18 11/07/22 Manas Ibarra MD [address] [place] [address] Referring Physician Thoracic Surgery 11/05/18 Zion Barton MD [address] [place] [address] Radiation Oncologist Radiation Oncology 05/05/19 Molina Charles MD 1 [facility] [address] [place] [address] Referring Physician Transplant Hepatology 12/15/20 Inés Lemus, TYRA [address] [facility] [address] [place] [address] Real Estate Branch Manager 10/31/21 Karuna Maria, OT Occupational Therapist Occupational Therapy 09/20/22 Renu Treviño NP [address] [facility] [address] [place] [address] Nurse Practitioner Radiation Oncology 11/08/22 Eladio Mcrae MD [address] [place], [place] [address] Referring Physician Obstetrics and Gynecology 11/15/22 Tamiko Schroeder, RN [address] [place] [address] Real Estate Branch Manager 04/27/24 Briana Poe RN [address] [facility] [address] [place] [address] SHOP Outpatient Still Operator Whiskey 04/30/24 05/28/24 Marina Le, RN [address] [facility] [address] [place] [address] SHOP Outpatient Still Operator Whiskey 10/05/24 documented as of this encounter
== END 2024-10-05 14:43 | disposition home or self-care (01) ==
LOC: CHSLAB 14:45
PROVIDERS: PCP Internal Medicine
DX: K75.81 Nonalcoholic steatohepatitis (NASH) (principal)
CPT/HCPCS: 36415; 80053; 85610

== ENCOUNTER 2024-10-12 11:31 | Outpatient (CLI) | payer OTHER, SELFPAY ==
[2024-10-12 12:06] LABS: Kit Draw Collected
== END 2024-10-12 11:32 | disposition home or self-care (01) ==
LOC: CHSLAB 11:35
PROVIDERS: PCP Internal Medicine; Visit Provider Transplant Surgery
DX: N18.6 End stage renal disease (principal)
CPT/HCPCS: 36415

== ENCOUNTER 2024-11-19 13:36 | Outpatient (CLI) | payer OTHER, SELFPAY ==
--- OUTSIDE RECORDS SUMMARY | 2024-11-19 14:12 | XMS_ITS | Clinical Summary ---
Author Organization [facility] Address [address] [place] [address] Care Team Providers Care Fire Lookout Name Role Phone Maddy Romano MD Primary Care Provider [phone] Active Problems Problem Noted Date Diagnosed Date [...] Vaccine (3 - season) 2024 09/11/2021, 10/17/2020 RSV Immunization or 60+ Years (1 - [...] this topic Insurance [facility] Care Teams Fire Lookout Relationship Specialty Start Date End Date Maddy Romano MD [address] [place] [address] PCP - General INTERNAL MEDICINE 01/16/23
--- OUTSIDE RECORDS SUMMARY | 2024-11-19 14:12 | XMS_ITS | Encounter Summary ---
Author Organization [email or web address] Address [address] [place] [address] Care Team Providers Care Optometry Assistant Name Role Phone Unavailable Primary Care Provider Unavailabl e Encounter Details Date Type Department Care Team (Late st Contact Info) Description 11/17/2024 External Device Data ST[place] ABSTRACTION Provider, Abstract NO ADDRESS ON FILE Social History Tobacco Use Types Packs/Day Years [...] filedocumented in this encounter Additional Health Concerns Assessment Noted Time PHQ-9 Depression Total Score: 1 04/02/20 24 5:00 PM CDT documented as of this encounter
--- OUTSIDE RECORDS SUMMARY | 2024-11-19 14:12 | XMS_ITS | Encounter Summary ---
Author Organization [facility] Address [address] [place] [address] Care Team Providers Care Business Process Expert Name Role Phone Maddy Romano MD Primary Care Provider [phone] Manas Ibarra MD Unavailable Zion Barton MD Unavailable Molina Charles MD Unavailable [phone] Inés Lemus RN Unavailable [phone] Karuna Maria OT Unavailable Unavaila Renu Paul NP Unavailable [phone] Eladio Mcrae MD Unavailable [phone] Tamiko Schroeder RN Unavailable [phone] Briana Poe RN Unavailable [phone] Marina Le RN Unavailable [phone] Chelsea Barker RN Unavailable Unavail able Encounter Details Date Type Department Care Team (Late st Contact Info) Description 05/11/2024 Telephone [facility] [address] [place] [address] Ragini Wheeler, RN Social History Tobacco Use Types Packs/Day Years Used Date Smoking Tobacco: Former Cigarettes 0.5 51 1 970 - 2020 Smokeless Tobacco: Never [facility] Utilities Answer Date Recorded In the [...] often do you attend chur ch or hoahaoism services? Never 04/30/2024 Do you belong to any clubs o r organizations such as gnosticist groups, unions, fraternal or athletic groups, or [...] place to sleep or slept in a care home (including now)? No 12/31/2022 Housing Stability [...] any time in the past 12 m [facility], were you homeless or living in a care home (including now)? No 04/30/2024 Personal Safety Answer Date Recorded Have you ever been in or are you currently in a harmful physical or emotional relationship or is someone making you feel afraid or unsafe? 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 of this encounter Plan of Treatment Upcoming Encounters Date Type Department Care Team (Late st Contact Info) Description 12/01/2024 9:45 AM CDT Hospital Encounter [facility] [address] [place] [address] [address] [place] [address] Lea Gallardo MD 1 [facility] [address] [place] [address] 12/01/2024 9:45 AM CDT - 12/01/2024 10:30 AM CDT Surgery [facility] [address] [facility] [address] [place] [address] Lea Gallardo MD 1 [facility] [address] [place] [address] COLONOSCOPY Scheduled Procedures Name Priority Associated Diagnoses Date/Ti me COLONOSCOPY Screening for colorectal cancer 12/01/2024 9:45 AM CDT COLONOSCOPY Routine adult health maintenance [place] (nonalcoholic steatohepatitis) documented as of this encounter Visit Diagnoses Not on filedocumented in this encounter Additional Health Concerns Infection Onset Date Last Indicated Resolved Time COVID: Suspected 09/24/2024 09/24/2024 09/24/2024 3:13 PM RAW SILK GRADER documented as of this encounter Care Teams Business Process Expert Relationship Specialty Start Date End Date Maddy Romano MD [address] [place], [place] [address] PCP - General 09/28/16 Manas Ibarra MD [address] [place], [place] [address] Referring Physician Thoracic Surgery 11/05/18 Zino Barton MD [address] [place], [place] [address] Radiation Oncologist Radiation Oncology 05/05/19 Molina Charles MD 1 [facility] [address] [place] [address] Referring Physician Transplant Hepatology 12/15/20 Inés Leums, RN [address] [facility] [address] [place] [address] Human Resources Trainee 10/31/21 5 Karuna Maria, OT Occupational Therapist Occupational Therapy 09/20/22 Renu Treviño NP [address] [facility] [address] [place] [address] Nurse Practitioner Radiation Oncology 11/08/22 Eladio Mcrae MD [address] [place] [address] Referring Physician Obstetrics and Gynecology 11/15/22 Tamiko Schroeder RN [address] [place] [address] Human Resources Trainee 04/27/24 Briana Poe RN [address] [facility] [address] [place] [address] SHOP Outpatient Metal Fabricating Shop Helper 04/30/24 05/28/24 Marina Le RN [address] [facility] [address] [place] [address] SHOP Outpatient Metal Fabricating Shop Helper 10/05/24 10/26/24 Chelsea Barker, boiler welderHuman Resources Trainee 11/13/24 documented as of this encounter
--- OUTSIDE RECORDS SUMMARY | 2024-11-19 14:12 | XMS_ITS | Clinical Summary ---
Author Organization [facility] Address [address] [place] [address] Care Team Providers Care Airframe Technical Officer Name Role Phone Unavailable Primary Care Provider Unavailabl e Source Comments [facility] [employer],non-owned Affiliates and Associated Physician Practices is amultiple site organization consisting of ambulatory clinics and hospital sitesin [place], [place], [place] and [place]. This disclosure is being madepursuant to the Care Everywhere program and may not contain all information available regarding this patient. Last updated 18.[facility] [employer] Active Problems Problem Noted Date Diagnosed Date [...] 60-74 years 1-dose series) 2020 COVID-19 VACCINE (1 - 2023-2 5 season) 2024 DEPRESSION SCREENING 08/12/2024 INFLUENZA VACCINE (Season Ended) 2025 HIB VACCINE Aged Out No longer eligi ble based on patient's age to complete this topic HPV VACCINE Aged Out No longer eligi ble based on patient's age to complete this topic MENINGOCOCCAL (Group B) VACC INE SHARED DECISION-MAKING Aged Out No longer eligibl e based on patient's age to complete this topic MENINGOCOCCAL GROUPS A/C/Y/W VACCINE Aged Out No longer eligible b ased on patient's age to complete this topic
--- OUTSIDE RECORDS SUMMARY | 2024-11-19 14:12 | XMS_ITS | Encounter Summary ---
Author Organization [facility] Address [address] [place] [address] Phone Care Team Providers Care User Interface Developer Name Role Phone Maddy Romano MD Primary Care Provider [phone] Astrid Haq NP Unavailable Manas Ibarra MD Unavailable Zion Barton MD Unavailable Molina Charles MD Unavailable [phone] Inés Lemus RN Unavailable [phone] Karuna Maria OT Unavailable Unavaila Renu Paul NP Unavailable [phone] Eladio Mcrae MD Unavailable Tamiko Schroeder RN Unavailable [phone] Briana Poe RN Unavailable [phone] Marina Le RN Unavailable Chelsea Barker RN Unavailable Unavail able Encounter [...] on file 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 Gender Identity Female 11/15/2021 2:30 AM CDT Sexual Orientation Straight 02/02/2020 9: 00 AM CDT 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 of this encounter Plan of Treatment Upcoming Encounters Date Type Department Care Team (Late st Contact Info) Description 12/01/2024 9:45 AM CDT Hospital Encounter [facility] [address] [address] Lea Gallardo MD [address] [place] [address] 12/01/2024 9:45 AM CDT - 12/01/2024 10:30 AM CDT Surgery [facility] Disease [address] [address] Lea Gallardo MD [address] [place] [address] COLONOSCOPY Scheduled Procedures Name Priority Associated Diagnoses [...] COVID: Suspected 09/24/2024 09/24/2024 09/24/2024 3:13 PM AUTOMOBILE WRECKER documented as of this encounter Care Teams User Interface Developer Relationship Specialty Start Date End Date Maddy Romano MD [address] [place], [place] [address] PCP - General 09/28/16 Astrid Haq NP [address] [place], [place] [address] Nurse Practitioner Radiation Oncology 11/05/18 11/07/22 Manas Ibarra MD [address] [place], [place] [address] Referring Physician Thoracic Surgery 11/05/18 Zion Barton MD [address] [place] [address] Radiation Oncologist Radiation Oncology 05/05/19 Molina Charles MD 1 [facility] [address] [place] [address] Referring Physician Transplant Hepatology 12/15/20 Inés Lemus RN [address] [facility] [address] [place] [address] Pharmacy Buyer 10/31/21 5 Karuna Maria, OT Occupational Therapist Occupational Therapy 09/20/22 Renu Treviño NP [address] [facility] [address] [place] [address] Nurse Practitioner Radiation Oncology 11/08/22 Eladio Mcrae MD [address] [place] [address] Referring Physician Obstetrics and Gynecology 11/15/22 Tamiko Schroeder RN [address] [place] [address] Pharmacy Buyer 04/27/24 Briana Poe RN [address] [facility] [address] [place] [address] SHOP Outpatient Department Of Sociology Chair 04/30/24 05/28/24 Marina Le RN [address] [facility] [address] [place] [address] SHOP Outpatient Department Of Sociology Chair 10/05/24 10/26/24 Chelsea Barker, automation driverPharmacy Buyer 11/13/24 documented as of this encounter
--- OUTSIDE RECORDS SUMMARY | 2024-11-19 14:12 | XMS_ITS | Encounter Summary ---
Author Organization [facility] Address [address] [place] [address] Phone Care Team Providers Care Infrastructure Architect Name Role Phone Maddy Romano MD Primary Care Provider Astrid Haq NP Unavailable Manas Ibarra MD Unavailable Zion Barton MD Unavailable Molina Charles MD Unavailable [phone] Inés Lemus RN Unavailable [phone] Karuna Maria OT Unavailable Unavaila Renu Paul NP Unavailable [phone] Eladio Mcrae MD Unavailable [phone] Tamiko Schroeder RN Unavailable [phone] Briana Poe RN Unavailable [phone] Marina Le RN Unavailable Chelsea Barker RN [...] on file 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 Gender Identity Female 11/15/2021 2:30 AM CDT Sexual Orientation Straight 02/02/2020 9: 00 AM CDT 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 of this encounter Plan of Treatment Upcoming Encounters Date Type Department Care Team (Late st Contact Info) Description 12/01/2024 9:45 AM CDT Hospital Encounter [facility] Dig[facility]ive Disease [address] [address] Lea Gallardo MD [address] [place] [id number] 12/01/2024 9:45 AM CDT - 12/01/2024 10:30 AM CDT Surgery [facility] Digestive Disease [address] [address] Lea Gallardo MD [address] [place] [id number] COLONOSCOPY Scheduled Procedures Name Priority Associated Diagnoses [...] COVID: Suspected 09/24/2024 09/24/2024 09/24/2024 3:13 PM LOG GRADER documented as of this encounter Care Teams Infrastructure Architect Relationship Specialty Start Date End Date Maddy Romano MD [address] [place], [place] [id number] PCP - General 09/28/16 Astrid Haq NP [address] [place], [place] [id number] Nurse Practitioner Radiation Oncology 11/05/18 11/07/22 Manas Ibarra MD [address] [place], [place] [id number] Referring Physician Thoracic Surgery 11/05/18 Zion Barton MD [address] [place] [address] Radiation Oncologist Radiation Oncology 05/05/19 Molina Charles MD [address] [facility] [address] [place] [address] Referring Physician Transplant Hepatology 12/15/20 Inés Lemus RN [address] [facility] [[email or web address] [address] [place] [address] Rn Social Services 10/31/21 5 Karuna Maria, OT Occupational Therapist Occupational Therapy 09/20/22 Renu Treviño NP [address] [facility] [address] [place] [address] Nurse Practitioner Radiation Oncology 11/08/22 Eladio Mcrae MD [address] [place] [address] Referring Physician Obstetrics and Gynecology 11/15/22 Tamiko Schroeder RN [address] [place] [address] Rn Social Services 04/27/24 Briana Poe [facility] [address] [facility] [address] [place] [address] SHOP Outpatient Pot Fireman 04/30/24 05/28/24 Marina Le RN [address] [facility] [[email or web address]] [address] [place] [address] SHOP Outpatient Pot Fireman 10/05/24 10/26/24 Chelsea Barker, clinical appeals specialistRn Social Services 11/13/24 documented as of this encounter
--- OUTSIDE RECORDS SUMMARY | 2024-11-19 14:13 | XMS_ITS | Referral Summary ---
Author Organization [facility] Address [address] [place] [address] Care Team Providers Care Housekeeping Aid Name Role Phone Maddy Romano MD Primary Care Provider Manas Ibarra MD Unavailable Zion Barton MD Unavailable Molina Charles MD Unavailable [phone] Karuna Maria OT Unavailable Unavaila Renu Paul NP Unavailable [phone] Eladio Mcrae MD Unavailable [phone] Tamiko Schroeder RN Unavailable [phone] Chelsea Barker RN Unavailable Unavail able Encounters Date Type Department Care Team Description 11/11/2024 Plan of Care Documentation [facility] Speech Therapy [address] [place] [phone] 11/11/2024 11:30 AM CDT Therapy [facility] Speech Therapy 1 [place] [phone] Oropharyngeal dysphagia (Primary Dx) 11/11/2024 10:53 AM CDT - 11/11/2024 11:59 PM CDT Hospital Encounter [facility] Radiology 1 [place] [address] Dysphagia, oropharyngeal Discharge Disposition: Discharge to home or self care 10/27/2024 SHOP/CHAP Subsequent Outreach [facility] OP CASE MANAGEMENT 1 [place] [address] Marina Le, RN 10/20/2024 SHOP/CHAP Subsequent Outreach [facility] OP CASE MANAGEMENT 1 [place] [address] Marina Le, RN 10/20/2024 Documentation [facility] and [facility] Transplant Liver [address] [facility] [address] Mailstop -24-7 [place] [address] Celsa Vargas 10/20/2024 Telephone [facility] Transplant Liver [address] [facility] [address] Mailstop -80[address] [place] [address] Inés Lemus, TYRA 10/15/2024 SHOP/CHAP Subsequent Outreach [facility] OP CASE MANAGEMENT 1 [place] [address] Marina Le, RN 10/14/2024 12:30 PM SLIP INJECTOR AND APPLICATOR Office Visit [facility] Endocrinology Metabolism and Lipid [address] [place] [address] 13th [place] [address] [place] [phone] Sylvain Aguilera MD Type 2 diabetes mellitus without complication, unspecified whether manager terminal insulin use (HCC) (Primary Dx) 10/13/2024 Telephone [facility] Transplant Liver [address] [facility] 340 Mailstop -[phone] [place] [address] Inés Lemus, RN 10/13/2024 11:40 AM SLIP INJECTOR AND APPLICATOR Lab [facility] [address] [place] [phone] LYONS (nonalcoholic steatohepatitis) 10/13/2024 Telephone [facility] and [facility] Transplant Liver [address] [facility] [facility] [address] Mailstop [phone] [place] [address] Celsa Vargas 10/13/2024 Documentation [facility] Transplant Liver [address] [facility] [address] Mailstop [phone] [place] [address] Celsa Vargas 10/13/2024 Telephone [facility] Transplant Liver [address] [facility] [address] Mailstop [phone] [place] [address] Celsa Vargas 10/13/2024 8:30 AM SLIP INJECTOR AND APPLICATOR Office Visit [facility] Nephrology [address] [facility] 5th [place] [address] [place] [phone] Hypertension, unspecified type (Primary Dx); Stage 3b chronic kidney disease (HCC); Anemia in stage 3b chronic kidney disease (HCC) 10/12/2024 11:45 AM SLIP INJECTOR AND APPLICATOR - 10/12/2024 11:59 PM SLIP INJECTOR AND APPLICATOR Hospital Encounter [address] [address] ESRD (end stage renal disease) (HCC) Discharge Disposition: Discharge to home or self care 10/12/2024 Telephone [facility] Transplant Liver [address] [facility] [address] Mailstop [phone] [place] [address] Inés Lemus, TYRA 10/12/2024 SHOP/CHAP Subsequent Outreach [facility] OP CASE MANAGEMENT 1 [place] [address] Marina Le RN 10/09/2024 Telephone [facility] Transplant Liver [address] [place] [address] 34[address] Mailop [phone] [place] [address] Inés Lmeus, TYRA 10/09/2024 Documentation [facility] Gastroenterology [address] [facility] 12th [place] [address] [place] [address] Alexandra Issa, TYRA 10/08/2024 4:00 PM SLIP INJECTOR AND APPLICATOR Office Visit [facility] Gastroenterology [address] [facility] Medical Office Building [address], [address] [place] [phone] Taiwo Vázquez MD Class 3 severe obesity due to excess calories with serious comorbidity and body mass index (BMI) of 40.0 to 44.9 in adult (HCC) (Primary Dx); 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 OP CASE MANAGEMENT 1 [place] [address] Marina Le, TYRA 10/05/2024 Telephone [facility] and [facility] Transplant Liver [address] [facility] [address] Mailstop -28-[address] [place] [address] Inés Lemus, TYRA 10/05/2024 Results Follow-Up [facility] Transplant Liver [address] [facility] [facility] [address] Mail[address] [place] [address] Inés Lemus, TYRA 10/05/2024 Telephone [facility] Transplant Liver [address] [facility] [facility] [address] Mailstop -91- [place] [address] Inés Lemus, TYRA 10/05/2024 SHOP/CHAP Initial Outreach [facility] OP CASE MANAGEMENT 1 [place] [phone] Marina Le, RN 10/05/2024 SHOP/CHAP Initial Eligibility Review [facility] OP CASE MANAGEMENT 1 [place] [address] Marina Le, RN 09/24/2024 12:08 PM SLIP INJECTOR AND APPLICATOR - 10/02/2024 5:03 PM SLIP INJECTOR AND APPLICATOR Hospital Encounter [facility] 1 [place] [address] Paxton Hawk MD Mudd, Peter Shine MD PhD Najma Pires MD Jeon, Alvin, MD Stephenson, Kevin Blakeslee, MD Gastrointestinal hemorrhage, unspecified gastrointestinal hemorrhage type (Primary Dx); Hepatic encephalopathy (HCC); Stage 3b chronic kidney disease (HCC); Dysphagia, oropharyngeal; Physical debility Discharge Disposition: Discharge to home or self care 09/29/2024 Documentation [facility] Transplant Liver [address] [place] [address] [address] Mailstop [phone] [place] [address] Chelsea Barker, TYRA 09/28/2024 Documentation [facility] Transplant Liver [address] [place] [address] 3401 Mailstop [phone] [place] [address] Chelsea Barker, TYRA 09/24/2024 Telephone [facility] Transplant Liver [address] [place] [address] 340 Mailstop 08-01-390 [place] [address] Inés Lemus, TYRA 09/24/2024 Telephone [facility] Gastroenterology [address] [place] [address] Medical Office Building [address], [address] [place] [phone] Gregory Del Cid MD 09/21/2024 10:00 AM SLIP INJECTOR AND APPLICATOR - 09/21/2024 11:59 PM SLIP INJECTOR AND APPLICATOR Hospital Encounter [facility] [address] [place] [address] ESRD (end stage renal disease) (HCC) Discharge Disposition: Discharge to home or self care 09/15/2024 Documentation [facility] Gastroenterology [address] [place] [address] 12th [place] [address] [place] [address] Alexandra Issa RN 09/14/2024 Telephone [facility] Transplant Liver [address] [facility] [address] Mailstop [phone] [place] [address] Inés Lemus, TYRA 09/07/2024 Orders Only [facility] Scanning, Provider 08/30/2024 Telephone [facility] and [facility] Transplant Liver [address] [facility] [facility] [address] Mailstop [phone] [place] [address] Inés Lemus, RN 08/28/2024 Documentation [facility] Gastroenterology [address] [facility] 12th [place] [address] [place] [address] Alexandra Issa, TYRA 08/27/2024 1:40 PM SLIP INJECTOR AND APPLICATOR Lab [facility] [address] [place] [phone] LYONS (nonalcoholic steatohepatitis) 08/25/2024 Documentation [facility] Gastroenterology [facility] 12th [place] [address] [place] [address] Alexandra Issa RN 08/25/2024 Telephone [facility] and [facility] Transplant Liver [address] [facility] [address] Mailop [phone] [place] [address] Inés Lemus, TYRA 08/25/2024 Documentation [facility] Gastroenterology [address] [place] [address] [facility] 12th [place] [address] [place] [address] Alexandra Issa, TYRA 08/24/2024 10:00 AM SLIP INJECTOR AND APPLICATOR - 08/24/2024 11:59 PM SLIP INJECTOR AND APPLICATOR Hospital Encounter [facility] [address] [place] [address] ESRD (end stage renal disease) (HCC) Discharge Disposition: Discharge to home or self care 08/24/2024 Orders Only [facility] Scanning, Provider 08/24/2024 9:00 AM SLIP INJECTOR AND APPLICATOR Social Work [facility] and [facility] Transplant [place] [address] [facility], 8th [address], [place] [address] Ragini Garner LCSW from Last 3 Months Allergies Active Allergy Reactions Criticality Noted Date Comments Moxifloxacin Itching Low 10/15/2019 Sulfa (Sulfonamide Antibiotics) Hives Medium Medications acetaminophen (TYLENOL) 325 mg tabletIndications: Pain Take 2 tablets (650 mg total) by mouth every 8 (eight) hours 02/06/20 23 Active rifAXIMin (Xifaxan) 550 mg tabletIndications: Hepatic encephalopathy (HCC),Cirrhosis of liver without ascites, unspecified hepatic cirrhosis type (HCC) Take 1 tablet (550 mg total) by mouth 2 (two) times a day 60 tablet 11 12/12/19 24 Active lactulose solution 10 gram/15mL Take 30 mL (20 g total) by mouth 3 (three) times a day 2700 mL 3 04/29/20 24 Active ondansetron (ZOFRAN) 4 mg tablet Take 1 tablet (4 mg total) by mouth every 8 (eight) hours as needed for nausea or vomiting 30 tablet 1 06/04/20 24 Active thiamine (VITAMIN B-1) 100 mg tablet Take 1 tablet (100 mg total) by mouth daily 06/22/[address] (PROTONIX) 40 mg EC tablet Take 1 tablet (40 mg total) by mouth daily 30 tablet 11 07/23/20 24 025 Active blood-glucose sensor (Dexcom G6 Sensor) deviceIndications: Type 2 diabetes mellitus with stage 3a chronic kidney disease, unspecified whether manager terminal insulin use (HCC) Will use 1 sensor every 10 days. 1 box = 3 sensors. 3 each 5 08/19/19 25 Active blood-glucose transmitter (Dexcom G6 Transmitter) deviceIndications: Type 2 diabetes mellitus without complication, unspecified whether manager terminal insulin use (HCC) Will use 1 transmitter every 90 days 1 each 1 08/19/19 25 Active pen needle, diabetic (BD Ultra-Fine Mini Pen Needle) 31 gauge x 3/16 needleIndications: Type 2 diabetes mellitus without complication, unspecified whether senior care insulin use (HCC) USE TO INJECT INSULIN SIX TIMES PER DAY 200 each 11 09/23/19 25 Active insulin glargine (LANTUS) 100 unit/mL (3 mL) pen for injection Inject 40 Units under the skin nightly 15 mL 10/02/19 25 Active pen needle, diabetic (Pen Needle) 32 gauge x 5/32 needle Use as directed once a day. 100 each 10/02/19 25 Active insulin lispro (ADMELOG) 100 unit/mL pen [...] for Sliding Scale Insulin Instructions. 15 mL 10/02/19 25 Active blood-glucose meter,continuous (Dexcom G7 Comparator Operator) misc Use as directed. 1 each 10/02/19 25 Active glucagon 1 mg kit Inject 1 mg into the muscle once as directed by provider for low blood sugar. 1 kit 10/02/19 25 Active spironolactone (ALDACTONE) 100 mg tablet Take 1 tablet (100 mg total) by mouth daily 30 tablet 11 10/02/19 25 026 Active atorvastatin (LIPITOR) 40 mg tablet Take 1 tablet (40 mg total) by mouth daily 30 tablet 10/02/19 25 Active Additional Information Patient not taking.Reported on 10/14/2024 bumetanide (BUMEX) 1 mg tabletIndications: Stage 3b chronic kidney disease (HCC) Take 2 tablets (2 mg total) by mouth daily 270 tablet 10/15/19 25 Active tirzepatide (Mounjaro) 2.5 mg/0.5 mL pen injector injection Inject 0.5 mL (2.5 mg total) under the skin once a week 2 mL 11 10/15/19 25 Active blood-glucose sensor (Dexcom G7 Sensor) device Use as directed. Change sensor every 10 days. 3 each 10/20/19 25 Active Active Problems Problem Noted Date Diagnosed Date Screening for colorectal cancer 10/06/2024 Esophageal varices without bleeding 07/17/2024 Cirrhosis of liver without ascites 07/15/2024 Class 3 severe obesity due t o [...] outlined elsewhere. 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 12/29/2022 Assessment & Plan (03/06/2023 5:48 PM CDT): [...] list. Iron deficiency anemia 11/29/2022 Atrial flutter 10/10/2022 Assessment & Plan (10/12/2022 12:20 PM SLIP INJECTOR AND APPLICATOR): Episode of atrial flutter overnight with RVR up to 140s. Patient asymptomatic, normotensive. IV metoprolol X2 given to achieve rate control. Cqs3mm3 vasc score of 3. TTE from 09/03 without valvular abnormalities. No new episodes today. Lytes within normal limits. - Continue multiple slide operator - Continue home dose of metoprolol 25mg BID - Given that patient might be listed for transplant, hepatology would prefer to avoid apixaban. Lovenox is not ideal given her platelet count less than 100. Her INR is too high to consider warfarin. Anemia 10/05/2022 Assessment & Plan (10/11/2022 12:28 PM SLIP INJECTOR AND APPLICATOR): - Hgb has down trended from 8 [...] 10/05/2022 Assessment & Plan (10/11/2022 12:45 PM SLIP INJECTOR AND APPLICATOR): -Continue home dose of metoprolol 25mg BID Hepatic encephalopathy 07/31/2022 Assessment & Plan (03/06/2023 5:49 PM CDT): Good control on current medical management. No changes indicated. Assessment & Plan (08/03/2022 1:05 PM SLIP INJECTOR AND APPLICATOR): Pt with hx of LYONS cirrhosis presenting with progressively worsening mental status over past several weeks. On initial examination patient was AAOx1, on subsequent exam she is now AAOx2 with appropriate responses. NH3 75. Unfortunately no safe area for bedside diagnostic paracentesis. Slurred speech and concerns for swallowing. PATIENT OBSERVER completed swallow study and normal. Head CT: No acute intracranial abnormality. -Awaiting Liver MRI -Increased Lactulose to 4x daily (only 1 stool on 08/02) - Rifaximin and Lactulose (goal 3-5 bowel movements) - Fall precautions. - PT/OT: Home with assistance. Assessment & Plan (08/02/2022 2:34 PM SLIP INJECTOR AND APPLICATOR): Pt with hx of LYONS cirrhosis presenting with progressively worsening mental status over past several weeks. On initial examination patient was AAOx1, on subsequent exam she is now AAOx2 with appropriate responses. NH3 75. Unfortunately no safe area for bedside diagnostic paracentesis. Slurred speech and concerns for swallowing. PATIENT OBSERVER completed swallow study and normal. Head CT: No acute intracranial abnormality. - Rifaximin and Lactulose (goal 3-5 bowel movements) - Fall precautions. - PT/OT: Home with assistance. - PATIENT OBSERVER completed bedside swallow and Normal Assessment & Plan (08/01/2022 3:28 PM SLIP INJECTOR AND APPLICATOR): Pt with hx of LYONS cirrhosis presenting [...] concerns for swallowing. - Fall precautions. - PATIENT OBSERVER/PT/OT Consults. Assessment & Plan (08/01/2022 4:16 AM SLIP INJECTOR AND APPLICATOR): Pt with hx of LYONS cirrhosis presenting [...] Lesion of lung 11/16/2015 Lichen planus 06/03/2012 Type 2 diabetes mellitus Assessment & Plan (10/12/2022 2:58 PM SLIP INJECTOR AND APPLICATOR): Previously on dose reduced insulin regimen at [facility]SH 20u lantus, 7u tid lispro + ssi. - Her blood sugars were initially on the lower side (90-100) in setting of poor po intake and TR. Continue SSI only for now and will uptitrate as needed. - Continue Lantus 10u/daily + lispro 4TID Assessment & Plan (08/03/2022 1:09 PM SLIP INJECTOR AND APPLICATOR): Home regimen of toujeo 42 units + SSI. -Lantus, Lispro TID AC and SSI -No Juice Diet -Consistent Carb+ 2gm NA diet. -CTM BGL Assessment & Plan (08/02/2022 2:38 PM SLIP INJECTOR AND APPLICATOR): Home regimen of toujeo 42 units + SSI. -Lantus, Lispro TID AC and SSI -No Juice Diet -Consistent Carb+ 2gm NA diet. -CTM BGL Assessment & Plan (08/01/2022 3:26 PM SLIP INJECTOR AND APPLICATOR): Home regimen of toujeo 42 units + SSI. Given TR and decreased PO intake, insulin regimen reduced to Lantus 20units. - Continue on 2g Na + DM2 diet - CTM BGL Assessment & Plan (08/01/2022 4:17 AM SLIP INJECTOR AND APPLICATOR): Home regimen of toujeo 42 units + SSI Given TR and decreased PO intake, will dose reduce insulin regimen, 20units + SSIand uptitrate as needed Continue on 2g Na + DM2 diet Obstructive sleep apnea Resolved Problems Problem Noted Date Diagnosed Date Resolved Date Hypoxic ischemic encephalopa thy of , unspecified stage 09/24/2024 10/08/2024 Chronic liver failure without hepatic coma 04/20/2024 05/29/2024 Lymphedema 01/16/2023 07/15/2024 Other ascites 10/22/2022 07/15/2024 Overview (10/22/2022): Added automatically from request for surgery [id number] Volume overload 10/06/2022 05/29/2024 Assessment & Plan (10/10/2022 1:09 PM SLIP INJECTOR AND APPLICATOR): In the setting of LYONS cirrhosis. Diuretics [...] (08/22/2022): Added automatically from request for surgery [id number] Portal vein thrombosis 08/01/202208/22 Assessment & Plan (08/03/2022 1:09 PM SLIP INJECTOR AND APPLICATOR): -Apixaban 2.5mg BID Assessment & Plan (08/02/2022 2:39 PM SLIP INJECTOR AND APPLICATOR): -Apixaban 2.5mg BID Assessment & Plan (08/01/2022 3:27 PM SLIP INJECTOR AND APPLICATOR): -Apixaban 2.5mg BID Assessment & Plan (08/01/2022 4:17 AM SLIP INJECTOR AND APPLICATOR): Continue home apixaban LYONS (nonalcoholic steatohepatitis) 11/02/2021 07/15/2024 Abnormal mammogram of right breast 11/02/2020 08/22/2022 Preop cardiovascular exam 09/23/2019 Overview (09/23/2019): Added automatically from request for surgery [id number] Colon cancer screening 04/21/201908/22 Overview (04/21/2019): Added automatically from request for surgery [id number] Esophageal varices without bleeding (CMS/HCC) 04/21/20 19 08/22/2022 Overview (04/21/2019): Added automatically from request for surgery [id number] Steatosis of liver 05/20/2017 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 07/26/2016 08/22/2022 Neutropenia 07/14/2015 07/15/2024 Portal vein thrombosis 07/14/201508/22 BMI 45.0-49.9, adult 11/18/2014 024 Hepatic cirrhosis 05/20/2014 10/05/2022 Abnormal magnetic resonance imaging study 05/20/2014 08/22/2022 Biliary colic 05/10/2014 08/22/2022 Lesion of liver 04/30/2014 08/22/2022 Decreased granulocyte count 01/14/2014 07/15/2024 Lymphopenia 03/17/2013 07/15/2024 Rash 03/25/2012 08/22/2022 Immunizations Immunization Administration Dates Next Due Hep B Vaccine 01/22/2024,12/18/2023 Influenza, Quadrivalent, Spl it, Intramuscular 05/01/2019,05/26/2015 Influenza, Quadrivalent, Spl it, Preservative Free, Intramuscular 07/02/2023,04/29/2020,05/01/2019,05/09,05/08/2018,05/23/2017,05/17/2016 Influenza, Trivalent, IM (MDV) 04/28/2021,2013 Influenza, Trivalent, Preser vative Free, Intramuscular 05/29/2013 [employer] ([employer]) SARS-CoV-2 Vaccination 10/17/2020 Pneumococcal Conjugate PCV 13 05/26/2015 Pneumococcal Polysaccharide PPV23 03/24/2014 RSV Vaccine, Pref, Recombina nt, Subunit, Adjuvanted, PF, IM (Arexvy) 12/18/2023 Tdap 03/24/2014 [employer] Recombinant 02/17/2020,05/29/2019 Social History Tobacco Use Types Packs/Day Years Used Date Smoking Tobacco: Former Cigarettes 0.5 51 1 970 - 202 Smokeless Tobacco: Never Tobacco Cessation:Counseling Given: Not Answered [employer] Utilities Answer Date Recorded In the past 12 months has th e Brain[employer], gas, oil, or water company threatened to [...] often do you attend chur ch or confucianism services? Never 10/05/2024 Do you belong to any clubs o r organizations such as buddhist groups, unions, fraternal or athletic groups, or school groups? No 10/05/2024 How often do you attend meet ings of the clubs or organizations you belong to? Never 10/05/2024 Are you , , di vorced, , never , or living with a partner? 10/05/2024 AUDIT-C Answer Date Recorded Q1: How often do you have a drink containing alcohol? Never 10/08/2024 Q2: How many drinks containi ng alcohol do you have on a typical day when you are drinking? Patient does not drink Q3: How often do you have si x or more drinks on one occasion? Never 10/08/2024 Overall Financial Resource Strain (CARDIA) Answe r [...] place to sleep or slept in a mcc (including now)? No 12/31/2022 Housing Stability Vital Sign Answer Terrance e Recorded In the last 12 months, was t here a time when you were not able to pay the mortgage or rent on time? No 10/05/2024 In the past 12 months, how m any times have you moved where you were living? 0 10/05/2024 At any time in the past 12 m [facility], were you homeless or living in a mcc (including now)? No 10/05/2024 Personal Safety Answer Date Recorded Have you ever been in or are you currently in a harmful physical or emotional relationship or is someone making you feel afraid or unsafe? 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 file Last Filed Vital Signs Vital Sign Reading Time Taken Comments Blood Pressure 117/72 10/14/2024 12:14 PM SLIP INJECTOR AND APPLICATOR Pulse 84 10/14/2024 12:14 PM SLIP INJECTOR AND APPLICATOR Temperature 37.1 C (98.7 F) 10/14/2024 12:14 PM SLIP INJECTOR AND APPLICATOR Respiratory Rate 17 10/02/2024 2:45 PM SLIP INJECTOR AND APPLICATOR Oxygen Saturation 100% 10/08/2024 3:52 PM SLIP INJECTOR AND APPLICATOR Inhaled Oxygen Concentration - - Weight 118.4 kg (261 lb) 10/14/2024 12:14 PM SLIP INJECTOR AND APPLICATOR Height 170.2 cm (5' 7 ) 10/14/2024 12:14 PM SLIP INJECTOR AND APPLICATOR Body Mass Index 40.88 10/14/2024 12:14 PM SLIP INJECTOR AND APPLICATOR Plan of Treatment Upcoming Encounters Date Type Department Care Team (Late st Contact Info) Description 12/01/2024 9:45 AM CDT Hospital Encounter [facility] [address] [facility] [address] [place] [address] Lea Gallardo MD [address] [place] [address] 12/01/2024 9:45 AM CDT - 12/01/2024 10:30 AM CDT Surgery [facility] [address] [place] [address] Lea Gallardo MD [address] [place] [address] COLONOSCOPY Scheduled Procedures Name Priority Associated Diagnoses Date/Ti me COLONOSCOPY Screening for colorectal cancer 12/01/2024 9:45 AM CDT COLONOSCOPY Routine adult health maintenance LYONS (nonalcoholic steatohepatitis) Procedures Procedure Name Priority Date/Time Associated Diagnosis Comments FL MODIFIED BARIUM SWALLOW W VIDEO Schedule Routine, Read Routine (OP Routine) 11/11/2024 11:46 AM CDT Dysphagia, oropharyngeal POCT GLUCOSE [id number] Routine 10/14/2024 12:20 PM SLIP INJECTOR AND APPLICATOR Type 2 diabetes mellitus without complication, unspecified whether manager terminal insulin use (HCC) EGFR Routine 10/13/2024 10:40 AM SLIP INJECTOR AND APPLICATOR LYONS (nonalcoholic steatohepatitis) IMMATURE PLATELET FRACTION Routine 10/13/2024 10:40 AM SLIP INJECTOR AND APPLICATOR LYONS (nonalcoholic steatohepatitis) DIFFERENTIAL AUTO Routine 10/13/2024 10:40 AM SLIP INJECTOR AND APPLICATOR LYONS (nonalcoholic steatohepatitis) CBC WITH AUTO DIFFERENTIAL Routine 10/13/2024 10:40 AM SLIP INJECTOR AND APPLICATOR LYONS (nonalcoholic steatohepatitis) PROTIME-INR Routine 10/13/2024 10:40 AM SLIP INJECTOR AND APPLICATOR LYONS (nonalcoholic steatohepatitis) COMPREHENSIVE METABOLIC PANEL Routine 10/13/2024 10:40 AM SLIP INJECTOR AND APPLICATOR LYONS (nonalcoholic steatohepatitis) HLA ANTIBODY SCREEN BY PRA OR SAB PER SCHEDULE (CLASS I AND CLASS II) Routine 10/12/2024 11:45 AM SLIP INJECTOR AND APPLICATOR ESRD (end stage renal disease) (HCC) PROTIME-INR Routine 10/05/2024 COMPREHENSIVE METABOLIC PANEL Routine 10/05/2024 POCT GLUCOSE DEVICE Routine 10/02/2024 4 :21 PM SLIP INJECTOR AND APPLICATOR PATIENT OBSERVER EVALUATE AND TREAT FIBEROPTIC ENDOSCOPIC SWALLOW Routine 10/02/2024 1:07 PM SLIP INJECTOR AND APPLICATOR POCT GLUCOSE DEVICE Routine 10/02/2024 11:33 AM SLIP INJECTOR AND APPLICATOR POCT GLUCOSE DEVICE Routine 10/02/2024 7 :14 AM SLIP INJECTOR AND APPLICATOR POCT GLUCOSE DEVICE Routine 10/02/2024 4 :19 AM SLIP INJECTOR AND APPLICATOR EGFR Routine 10/01/2024 9:18 PM SLIP INJECTOR AND APPLICATOR MAGNESIUM Routine 10/01/2024 9:18 PM SLIP INJECTOR AND APPLICATOR PHOSPHORUS Routine 10/01/2024 9:18 PM SLIP INJECTOR AND APPLICATOR PROTIME-INR Routine 10/01/2024 9:18 PM SLIP INJECTOR AND APPLICATOR COMPREHENSIVE METABOLIC PANEL Routine 10/01/2024 9:18 PM SLIP INJECTOR AND APPLICATOR POCT GLUCOSE DEVICE Routine 10/01/2024 7 :35 PM SLIP INJECTOR AND APPLICATOR POCT GLUCOSE DEVICE Routine 10/01/2024 7 :34 PM SLIP INJECTOR AND APPLICATOR POCT GLUCOSE DEVICE Routine 10/01/2024 5 :12 PM SLIP INJECTOR AND APPLICATOR POCT GLUCOSE DEVICE Routine 10/01/2024 11:45 AM SLIP INJECTOR AND APPLICATOR POCT GLUCOSE DEVICE Routine 10/01/2024 7 :45 AM SLIP INJECTOR AND APPLICATOR EGFR Routine 09/30/2024 9:22 PM SLIP INJECTOR AND APPLICATOR DIFFERENTIAL AUTO Timed 09/30/2024 9:2 2 PM SLIP INJECTOR AND APPLICATOR VITAMIN D 25 HYDROXY Timed 09/30/2024 9:22 PM SLIP INJECTOR AND APPLICATOR PTH Timed 09/30/2024 9:22 PM SLIP INJECTOR AND APPLICATOR CBC WITH AUTO DIFFERENTIAL Timed 09/30/2024 9:22 PM SLIP INJECTOR AND APPLICATOR MAGNESIUM Routine 09/30/2024 9:22 PM SLIP INJECTOR AND APPLICATOR PHOSPHORUS Routine 09/30/2024 9:22 PM SLIP INJECTOR AND APPLICATOR PROTIME-INR Routine 09/30/2024 9:22 PM SLIP INJECTOR AND APPLICATOR COMPREHENSIVE METABOLIC PANEL Routine 09/30/2024 9:22 PM SLIP INJECTOR AND APPLICATOR POCT GLUCOSE DEVICE Routine 09/30/2024 7 :58 PM SLIP INJECTOR AND APPLICATOR POCT GLUCOSE DEVICE Routine 09/30/2024 4 :20 PM SLIP INJECTOR AND APPLICATOR POCT GLUCOSE DEVICE Routine 09/30/2024 11:43 AM SLIP INJECTOR AND APPLICATOR POCT GLUCOSE DEVICE Routine 09/30/2024 7 :54 AM SLIP INJECTOR AND APPLICATOR POCT GLUCOSE DEVICE Routine 09/30/2024 7 :36 AM SLIP INJECTOR AND APPLICATOR POCT GLUCOSE DEVICE Routine 09/30/2024 12:28 AM SLIP INJECTOR AND APPLICATOR EGFR Routine 09/29/2024 8:49 PM SLIP INJECTOR AND APPLICATOR MAGNESIUM Routine 09/29/2024 8:49 PM SLIP INJECTOR AND APPLICATOR PHOSPHORUS Routine 09/29/2024 8:49 PM SLIP INJECTOR AND APPLICATOR PROTIME-INR Routine 09/29/2024 8:49 PM SLIP INJECTOR AND APPLICATOR COMPREHENSIVE METABOLIC PANEL Routine 09/29/2024 8:49 PM SLIP INJECTOR AND APPLICATOR POCT GLUCOSE DEVICE Routine 09/29/2024 8 :08 PM SLIP INJECTOR AND APPLICATOR POCT GLUCOSE DEVICE Routine 09/29/2024 4 :50 PM SLIP INJECTOR AND APPLICATOR POCT GLUCOSE DEVICE Routine 09/29/2024 11:35 AM SLIP INJECTOR AND APPLICATOR PATIENT OBSERVER EVALUATE AND TREAT FIBEROPTIC ENDOSCOPIC SWALLOW Routine 09/29/2024 10:55 AM SLIP INJECTOR AND APPLICATOR PATIENT OBSERVER EVALUATE AND TREAT VIDEOFLUOROSCOPIC SWALLOW STUDY Routine 09/29/2024 10:55 AM SLIP INJECTOR AND APPLICATOR POCT GLUCOSE DEVICE Routine 09/29/2024 7 :34 AM SLIP INJECTOR AND APPLICATOR POCT GLUCOSE DEVICE Routine 09/29/2024 4 :49 AM SLIP INJECTOR AND APPLICATOR POCT GLUCOSE DEVICE Routine 09/29/2024 12:25 AM SLIP INJECTOR AND APPLICATOR HEMOGLOBIN A1C Routine 09/28/2024 9:17 PM SLIP INJECTOR AND APPLICATOR EGFR Routine 09/28/2024 9:17 PM SLIP INJECTOR AND APPLICATOR DIFFERENTIAL AUTO Routine 09/28/2024 9:1 7 PM SLIP INJECTOR AND APPLICATOR MAGNESIUM Routine 09/28/2024 9:17 PM SLIP INJECTOR AND APPLICATOR PHOSPHORUS Routine 09/28/2024 9:17 PM SLIP INJECTOR AND APPLICATOR PROTIME-INR Routine 09/28/2024 9:17 PM SLIP INJECTOR AND APPLICATOR CBC WITH AUTO DIFFERENTIAL Routine 09/28/2024 9:17 PM SLIP INJECTOR AND APPLICATOR COMPREHENSIVE METABOLIC PANEL Routine 09/28/2024 9:17 PM SLIP INJECTOR AND APPLICATOR POCT GLUCOSE DEVICE Routine 09/28/2024 7 :57 PM SLIP INJECTOR AND APPLICATOR POCT GLUCOSE DEVICE Routine 09/28/2024 4 :31 PM SLIP INJECTOR AND APPLICATOR POCT GLUCOSE DEVICE Routine 09/28/2024 11:23 AM SLIP INJECTOR AND APPLICATOR POCT GLUCOSE DEVICE Routine 09/28/2024 8 :01 AM SLIP INJECTOR AND APPLICATOR POCT GLUCOSE DEVICE Routine 09/28/2024 4 :52 AM SLIP INJECTOR AND APPLICATOR POCT GLUCOSE DEVICE Routine 09/28/2024 12:29 AM SLIP INJECTOR AND APPLICATOR EGFR Routine 09/28/2024 12:06 AM SLIP INJECTOR AND APPLICATOR DIFFERENTIAL AUTO Routine 09/28/2024 12:06 AM SLIP INJECTOR AND APPLICATOR MAGNESIUM Routine 09/28/2024 12:06 AM SLIP INJECTOR AND APPLICATOR PHOSPHORUS Routine 09/28/2024 12:06 AM SLIP INJECTOR AND APPLICATOR PROTIME-INR Routine 09/28/2024 12:06 AM SLIP INJECTOR AND APPLICATOR CBC WITH AUTO DIFFERENTIAL Routine 09/28/2024 12:06 AM SLIP INJECTOR AND APPLICATOR COMPREHENSIVE METABOLIC PANEL Routine 09/28/2024 12:06 AM SLIP INJECTOR AND APPLICATOR POCT GLUCOSE DEVICE Routine 09/27/2024 11:55 PM SLIP INJECTOR AND APPLICATOR POCT GLUCOSE DEVICE Routine 09/27/2024 8 :03 PM SLIP INJECTOR AND APPLICATOR POCT GLUCOSE DEVICE Routine 09/27/2024 4 :26 PM SLIP INJECTOR AND APPLICATOR POCT GLUCOSE DEVICE Routine 09/27/2024 11:49 AM SLIP INJECTOR AND APPLICATOR POCT GLUCOSE DEVICE Routine 09/27/2024 8 :05 AM SLIP INJECTOR AND APPLICATOR POCT GLUCOSE DEVICE Routine 09/27/2024 4 :24 AM SLIP INJECTOR AND APPLICATOR POCT GLUCOSE DEVICE Routine 09/26/2024 11:20 PM SLIP INJECTOR AND APPLICATOR EGFR Routine 09/26/2024 9:23 PM SLIP INJECTOR AND APPLICATOR DIFFERENTIAL AUTO Routine 09/26/2024 9:2 3 PM SLIP INJECTOR AND APPLICATOR MAGNESIUM Routine 09/26/2024 9:23 PM SLIP INJECTOR AND APPLICATOR PHOSPHORUS Routine 09/26/2024 9:23 PM SLIP INJECTOR AND APPLICATOR PROTIME-INR Routine 09/26/2024 9:23 PM SLIP INJECTOR AND APPLICATOR CBC WITH AUTO DIFFERENTIAL Routine 09/26/2024 9:23 PM SLIP INJECTOR AND APPLICATOR COMPREHENSIVE METABOLIC PANEL Routine 09/26/2024 9:23 PM SLIP INJECTOR AND APPLICATOR POCT GLUCOSE DEVICE Routine 09/26/2024 7 :53 PM SLIP INJECTOR AND APPLICATOR POCT GLUCOSE DEVICE Routine 09/26/2024 4 :37 PM SLIP INJECTOR AND APPLICATOR EGFR Timed 09/26/2024 3:40 PM SLIP INJECTOR AND APPLICATOR BASIC METABOLIC PANEL Timed 09/26/2024 3:40 PM SLIP INJECTOR AND APPLICATOR POCT GLUCOSE DEVICE Routine 09/26/2024 11:16 AM SLIP INJECTOR AND APPLICATOR POCT GLUCOSE DEVICE Routine 09/26/2024 9 :40 AM SLIP INJECTOR AND APPLICATOR LACTATE Timed 09/26/2024 8:16 AM SLIP INJECTOR AND APPLICATOR POCT GLUCOSE DEVICE Routine 09/26/2024 7 :45 AM SLIP INJECTOR AND APPLICATOR POCT GLUCOSE DEVICE Routine 09/26/2024 4 :26 AM SLIP INJECTOR AND APPLICATOR CT ABDOMEN PELVIS WO CONTRAST IP Routine 09/26/2024 3:17 AM SLIP INJECTOR AND APPLICATOR LACTATE Timed 09/26/2024 12:44 AM SLIP INJECTOR AND APPLICATOR POCT GLUCOSE DEVICE Routine 09/26/2024 12:08 AM SLIP INJECTOR AND APPLICATOR EGFR Routine 09/25/2024 10:48 PM SLIP INJECTOR AND APPLICATOR DIFFERENTIAL AUTO Routine 09/25/2024 10:48 PM SLIP INJECTOR AND APPLICATOR PROTIME-INR Routine 09/25/2024 10:48 PM SLIP INJECTOR AND APPLICATOR CBC WITH AUTO DIFFERENTIAL Routine 09/25/2024 10:48 PM SLIP INJECTOR AND APPLICATOR COMPREHENSIVE METABOLIC PANEL Routine 09/25/2024 10:48 PM SLIP INJECTOR AND APPLICATOR POCT GLUCOSE DEVICE Routine 09/25/2024 8 :27 PM SLIP INJECTOR AND APPLICATOR POCT GLUCOSE DEVICE Routine 09/25/2024 6 :12 PM SLIP INJECTOR AND APPLICATOR POCT GLUCOSE DEVICE Routine 09/25/2024 4 :12 PM SLIP INJECTOR AND APPLICATOR CRITICAL RESULT CALLBACK CHEMISTRY Timed 09/25/2024 3:24 PM SLIP INJECTOR AND APPLICATOR LACTATE Timed 09/25/2024 3:24 PM SLIP INJECTOR AND APPLICATOR SODIUM, URINE, RANDOM Routine 09/25/2024 3:24 PM SLIP INJECTOR AND APPLICATOR URINALYSIS AND REFLEX TO MICROSCOPIC AND CULTURE STAT 09/25/2024 3:24 PM SLIP INJECTOR AND APPLICATOR POCT GLUCOSE DEVICE Routine 09/25/2024 2 :41 PM SLIP INJECTOR AND APPLICATOR POCT GLUCOSE DEVICE Routine 09/25/2024 12:32 PM SLIP INJECTOR AND APPLICATOR TROPONIN I HIGH-SENSITIVITY 4-HOUR Timed 09/25/2024 11:38 AM SLIP INJECTOR AND APPLICATOR POCT GLUCOSE DEVICE Routine 09/25/2024 11:14 AM SLIP INJECTOR AND APPLICATOR CRITICAL RESULT CALLBACK CARDIO CHEM Timed 09/25/2024 9:51 AM SLIP INJECTOR AND APPLICATOR TROPONIN I HIGH-SENSITIVITY 2-HOUR Timed 09/25/2024 9:51 AM SLIP INJECTOR AND APPLICATOR POCT GLUCOSE DEVICE Routine 09/25/2024 9 :19 AM SLIP INJECTOR AND APPLICATOR TROPONIN I HIGH-SENSITIVITY SERIES (BASELINE, 2HR, 4HR, 6HR) Timed 09/25/2024 7:44 AM SLIP INJECTOR AND APPLICATOR LACTATE Timed 09/25/2024 7:44 AM SLIP INJECTOR AND APPLICATOR POCT GLUCOSE DEVICE Routine 09/25/2024 7 :32 AM SLIP INJECTOR AND APPLICATOR POCT GLUCOSE DEVICE Routine 09/25/2024 4 :12 AM SLIP INJECTOR AND APPLICATOR POCT GLUCOSE DEVICE Routine 09/25/2024 2 :52 AM SLIP INJECTOR AND APPLICATOR XR ABDOMEN AP 1 VIEW IP Routine 09/25/2024 1:32 AM SLIP INJECTOR AND APPLICATOR POCT GLUCOSE DEVICE Routine 09/25/2024 12:11 AM SLIP INJECTOR AND APPLICATOR MAGNESIUM Routine 09/24/2024 11:56 PM SLIP INJECTOR AND APPLICATOR EGFR Routine 09/24/2024 11:56 PM SLIP INJECTOR AND APPLICATOR DIFFERENTIAL AUTO Routine 09/24/2024 11:56 PM SLIP INJECTOR AND APPLICATOR PROTIME-INR Routine 09/24/2024 11:56 PM SLIP INJECTOR AND APPLICATOR [id number], TUMOR MARKER Timed 09/24/2024 11:56 PM SLIP INJECTOR AND APPLICATOR CBC WITH AUTO DIFFERENTIAL Routine 09/24/2024 11:56 PM SLIP INJECTOR AND APPLICATOR PHOSPHORUS Routine 09/24/2024 11:56 PM SLIP INJECTOR AND APPLICATOR COMPREHENSIVE METABOLIC PANEL Routine 09/24/2024 11:56 PM SLIP INJECTOR AND APPLICATOR TROPONIN I HIGH-SENSITIVITY 6-HOUR Timed 09/24/2024 11:56 PM SLIP INJECTOR AND APPLICATOR CRITICAL RESULT CALLBACK CHEMISTRY Timed 09/24/2024 11:55 PM SLIP INJECTOR AND APPLICATOR SEPSIS LACTATE WITH REFLEX Timed 09/24/2024 11:55 PM SLIP INJECTOR AND APPLICATOR POCT GLUCOSE DEVICE Routine 09/24/2024 11:08 PM SLIP INJECTOR AND APPLICATOR XR CHEST 1 VIEW ED Urgent/IP Urgent 09/24/2024 11:02 PM SLIP INJECTOR AND APPLICATOR US LIVER DOPPLER COMPLETE IP Routine 09/24/2024 9:07 PM SLIP INJECTOR AND APPLICATOR POCT GLUCOSE DEVICE Routine 09/24/2024 8 :08 PM SLIP INJECTOR AND APPLICATOR MI CRITICAL CARE ILL/INJURED PATIENT INIT 30-74 MIN Routine 09/24/2024 4:23 PM SLIP INJECTOR AND APPLICATOR CRITICAL RESULT CALLBACK CHEMISTRY Timed 09/24/2024 2:37 PM SLIP INJECTOR AND APPLICATOR SEPSIS LACTATE WITH REFLEX Timed 09/24/2024 2:37 PM SLIP INJECTOR AND APPLICATOR TROPONIN I HIGH-SENSITIVITY 2-HOUR Timed 09/24/2024 2:36 PM SLIP INJECTOR AND APPLICATOR BLOOD CULTURE STAT 09/24/2024 2:36 PM SLIP INJECTOR AND APPLICATOR RESPIRATORY PATHOGEN PANEL STAT 09/24/2024 1:39 PM SLIP INJECTOR AND APPLICATOR BLOOD CULTURE STAT 09/24/2024 1:39 PM SLIP INJECTOR AND APPLICATOR XR CHEST 1 VIEW ED 09/24/2024 12:59 PM SLIP INJECTOR AND APPLICATOR POCT KETONE, BLOOD Routine 09/24/2024 12:40 PM SLIP INJECTOR AND APPLICATOR POCT GLUCOSE DEVICE Routine 09/24/2024 12:37 PM SLIP INJECTOR AND APPLICATOR EGFR STAT 09/24/2024 12:35 PM SLIP INJECTOR AND APPLICATOR DIFFERENTIAL AUTO STAT 09/24/2024 12:35 PM SLIP INJECTOR AND APPLICATOR CRITICAL RESULT CALLBACK CHEMISTRY STAT 09/24/2024 12:35 PM SLIP INJECTOR AND APPLICATOR AMMONIA STAT 09/24/2024 12:35 PM SLIP INJECTOR AND APPLICATOR TYPE AND SCREEN STAT 09/24/2024 12:35 PM SLIP INJECTOR AND APPLICATOR APTT STAT 09/24/2024 12:35 PM SLIP INJECTOR AND APPLICATOR PROTIME-INR STAT 09/24/2024 12:35 PM SLIP INJECTOR AND APPLICATOR TROPONIN I HIGH-SENSITIVITY SERIES (BASELINE, 2HR, 4HR, 6HR) STAT 09/24/2024 12:35 PM SLIP INJECTOR AND APPLICATOR SEPSIS LACTATE WITH REFLEX STAT 09/24/2024 12:35 PM SLIP INJECTOR AND APPLICATOR HEPATIC FUNCTION PANEL STAT 12:35 PM SLIP INJECTOR AND APPLICATOR BASIC METABOLIC PANEL STAT 09/24/2024 12:35 PM SLIP INJECTOR AND APPLICATOR CBC WITH AUTO DIFFERENTIAL STAT 09/24/2024 12:35 PM SLIP INJECTOR AND APPLICATOR BLOOD GAS, VENOUS STAT 09/24/2024 12:35 PM SLIP INJECTOR AND APPLICATOR NEURO CT OUTSIDE CONSULT Routine 09/24/2024 12:33 PM SLIP INJECTOR AND APPLICATOR XR TRANSFER OF OUTSIDE FILMS Routine 09/24/2024 12:28 PM SLIP INJECTOR AND APPLICATOR HLA ANTIBODY SCREEN - SAB (CLASS I AND CLASS II) Routine 09/21/2024 1:00 PM SLIP INJECTOR AND APPLICATOR ESRD (end stage renal disease) (HCC) HLA ANTIBODY SCREEN BY PRA OR SAB PER SCHEDULE (CLASS I AND CLASS II) Routine 09/21/2024 1:00 PM SLIP INJECTOR AND APPLICATOR ESRD (end stage renal disease) (HCC) SCAN - LABS 09/07/2024 EGFR Routine 08/27/2024 1:35 PM SLIP INJECTOR AND APPLICATOR LYONS (nonalcoholic steatohepatitis) COMPREHENSIVE METABOLIC PANEL Routine 08/27/2024 1:35 PM SLIP INJECTOR AND APPLICATOR LYONS (nonalcoholic steatohepatitis) PROTIME-INR Routine 08/27/2024 1:35 PM SLIP INJECTOR AND APPLICATOR LYONS (nonalcoholic steatohepatitis) HLA ANTIBODY SCREEN BY PRA OR SAB PER SCHEDULE (CLASS I AND CLASS II) Routine 08/24/2024 10:00 AM SLIP INJECTOR AND APPLICATOR ESRD (end stage renal disease) (HCC) SCAN - LABS 08/24/2024 PAP AND HIGH RISK HPV, REFLEX TO GENOTYPING Routine 04/28/2024 10:41 AM CDT SCREENING MAMMOGRAM BILATERAL W PAL IP Routine 04/27/2024 1:55 PM CDT LIPID PANEL Routine 04/22/2024 12:58 AM CDT HEPATITIS C ANTIBODY Routine 06/16/2023 6:09 AM SLIP INJECTOR AND APPLICATOR COLONOSCOPY 05/30/2022 9:28 AM CDT ALBUMIN CREATININE RATIO, URINE Routine 03/01/2021 2:45 PM CDT Type 2 diabetes mellitus without complication, unspecified whether manager terminal insulin use (HCC) from Last 3 Months or Most Recently Relevant to Health Maintenance Results * FL Modified Barium Swallow W Video (11/11/2024 11:46 AM CDT) Anatomical Region Laterality Modality Head and Neck N/A Radio Fluoroscop y 11/11/2024 12:5 4 PM CDT Impressions 11/11/2024 2:17 PM CDT The swallowing mechanism is normal; see above comments. Please refer to the Speech Pathology procedure note for safe swallow recommendations as well as additional information regarding the oral-pharyngeal swallow function, plan of care, and recommended follow up. Dictated by: Jesse Hardy MD The radiology attending physician has personally reviewed this study, and had reviewed and/or edited this written report and agrees with it. Electronically signed by: Louie Jenkins M.D. Narrative 11/11/2024 2:17 PM CDT EXAMINATION: MODIFIED BARIUM SWALLOW HISTORY: Dysphagia. TECHNIQUE: This procedure was completed in conjunction with a Speech Language Pathologist. The patient was given barium of multiple different consistencies to swallow. Video fluoroscopy was employed during the exam. FINDINGS: Oral-pharyngeal swallow function is normal. Penetration: Yes There is penetration of thin liquid. Penetration is not sensed. The penetrated material is cleared. Aspiration: No Residue:Yes There is pharyngeal residue of puree. Residue is sensed. The residual material is cleared. Other comments: None Procedure Note Louie Jenkins MD PhD - 11/11/2024 EXAMINATION: MODIFIED BARIUM SWALLOW HISTORY: Dysphagia. TECHNIQUE: This procedure was completed in conjunction with a Speech Language Pathologist. The patient was given barium of multiple different consistencies to swallow. Video fluoroscopy was employed during the exam. FINDINGS: Oral-pharyngeal swallow function is normal. Penetration: Yes There is penetration of thin liquid. Penetration is not sensed. The penetrated material is cleared. Aspiration: No Residue:Yes There is pharyngeal residue of puree. Residue is sensed. The residual material is cleared. Other comments: None IMPRESSION: The swallowing mechanism is normal; see above comments. Please refer to the Speech Pathology procedure note for safe swallow recommendations as well as additional information regarding the oral-pharyngeal swallow function, plan of care, and recommended follow up. Dictated by: Jesse Hrady MD The radiology attending physician has personally reviewed this study, and had reviewed and/or edited this written report and agrees with it. Electronically signed by: Louie Jenkins M.D. Molina Dsouza MD IMG FLUOROSCOPY MI OCEDURES Final Result * POCT glucose (10/14/2024 12:20 PM SLIP INJECTOR AND APPLICATOR) Glucose Blood, POC 235 mg/dL Blood 10/14/2024 12:2 0 PM SLIP INJECTOR AND APPLICATOR Sylvain Aguilera MD POINT OF CARE TEST ORDERABLES Final Result * Immature platelet fraction (10/13/2024 10:40 AM SLIP INJECTOR AND APPLICATOR) IPF 4.0 1.6 - 10.1 % Blood 10/13/2024 10:4 0 AM SLIP INJECTOR AND APPLICATOR 10/13/2024 11:29 AM SLIP INJECTOR AND APPLICATOR Molina Charles MD LAB BLOOD ORDERABLES Final Result [facility] [place] [employer] [address] * (ABNORMAL) eGFR (10/13/2024 10:40 AM SLIP INJECTOR AND APPLICATOR) Pathologist [facility] eGFR 50(L) >=60 mL/min/1. 73 m2 Comment: Interpretive Data [...] interpretive data was last reviewed 2021. Blood 10/13/2024 10:4 0 AM SLIP INJECTOR AND APPLICATOR 10/13/2024 11:41 AM SLIP INJECTOR AND APPLICATOR Molina Charles MD LAB BLOOD ORDERABLES Final Result Performing Organization Address City/[facility]/ZIP Co de Phone Number [facility] [place] [employer] [address] * (ABNORMAL) Differential, auto (10/13/2024 10:40 AM SLIP INJECTOR AND APPLICATOR) Neutrophil abs 1.9 1.5 - 6.5 K/cumm Imm gran abs 0.0 0.0 - 0.1 K/cumm [facility] Lymphocyte abs 0.6(L) 0.8 - 3.3 K/cumm [facility] Monocyte abs 0.4 0.2 - 0.8 K/cumm [facility] Eosinophil abs 0.3 0.0 - 0.5 K/cumm [facility] Basophil abs 0.0 0.0 - 0.1 K/cumm [facility] Neutrophil pct 59.5 % [facility] Comment: Interpretive Data Percent cell count reference ranges are not reported, since discordance with absolute values may lead to misinterpretation of CBC data. Current Interpretive Data was last revised on 2017. Imm gran pct 0.3 % [facility] Comment: Interpretive Data Percent cell count reference ranges are not reported, since discordance with absolute values may lead to misinterpretation of CBC data. Current Interpretive Data was last revised on 2017. Lymphocyte pct 19.3 % [facility] Comment: Interpretive Data Percent cell count reference ranges are not reported, since discordance with absolute values may lead to misinterpretation of CBC data. Current Interpretive Data was last revised on 2017. Monocyte pct 11.9 % [facility] Comment: Interpretive Data Percent cell count reference ranges are not reported, since discordance with absolute values may lead to misinterpretation of CBC data. Current Interpretive Data was last revised on 2017. Eosinophil pct 8.4 % [facility] Comment: Interpretive Data Percent cell count reference ranges are not reported, since discordance with absolute values may lead to misinterpretation of CBC data. Current Interpretive Data was last revised on 2017. Basophil pct 0.6 % [facility] Comment: Interpretive Data Percent cell count reference ranges are not reported, since discordance with absolute values may lead to misinterpretation of CBC data. Current Interpretive Data was last revised on 2017. Blood 10/13/2024 10:4 0 AM SLIP INJECTOR AND APPLICATOR 10/13/2024 11:21 AM SLIP INJECTOR AND APPLICATOR Molina Charles MD LAB BLOOD ORDERABLES Final Result [facility] [place] [address] * (ABNORMAL) CBC with auto differential (10/13/2024 10:40 AM SLIP INJECTOR AND APPLICATOR) [facility] WBC 3.1(L) 3.8 - 9.9 K/cumm Hgb 9.6(L) 11.9 - 15.5 g/dL [facility] Hct 29.5(L) 35.6 - 45.5 % [facility] Plt 46(C) 150 - 400 K/cumm [facility] Comment:No clot detected in sample. JOSEPH SOLER. Critical result called to and read back by JOSEPH SOLER on 10 13 2024 at 1157 to Beth Nuñez. MPV 11.6 9.1 - 12.3 fL [facility] RBC 3.02(L) 3.90 - 5.20 M/cumm [facility] MCV 97.7(H) 81.3 - 96.4 fL [facility] MCH 31.8 27.1 - 33.3 pg [facility] MCHC 32.5 32.3 - 35.7 g/dL [facility] RDW CV 15.6(H) 11.1 - 14.9 % [facility] RDW SD 55.7(H) 35.7 - 48.1 fL [facility] NRBC abs 0.00 0.00 - 0.01 K/cumm [facility] Blood 10/13/2024 10:4 0 AM SLIP INJECTOR AND APPLICATOR 10/13/2024 11:21 AM SLIP INJECTOR AND APPLICATOR us Molina Charles MD LAB BLOOD ORDERABLES Final Result Performing Organization Address City/[facility]/ZIP Co de Phone Number [facility] [place] [address] * (ABNORMAL) Protime-INR (10/13/2024 10:40 AM SLIP INJECTOR AND APPLICATOR) PT 15.5(H) 9.7 - 13.0 sec INR 1.42(H) 0.90 - 1.20 [facility] Comment: Interpretive data Oral anticoagulant therapeutic ranges: Venous thromboembolism prophylaxis or treatment: 2.0-3.0 CARDIOLOGY Standard range: 2.0-3.0 High-intensity range: 2.5-3.5 Refer to indication-specific guidelines for appropriate target ranges for prosthetic heart valve replacement. Current interpretive data was last revised on 2019. Blood 10/13/2024 10:4 0 AM SLIP INJECTOR AND APPLICATOR 10/13/2024 11:21 AM SLIP INJECTOR AND APPLICATOR Molina Charles MD LAB BLOOD ORDERABLES Final Result [facility] [place] [address] * (ABNORMAL) Comprehensive metabolic panel (10/13/2024 10:40 AM SLIP INJECTOR AND APPLICATOR) Sodium 139 135 - 145 mmol/L Potassium, pl 4.2 3.3 - 4.9 mmol/L [facility] Chloride 101 97 - 110 mmol/L [facility] CO2 29 22 - 32 mmol/L [facility] Anion gap 9 2 - 15 mmol/L [facility] BUN 18 6 - 25 mg/dL [facility] Creatinine 1.22(H) 0.60 - 1.10 mg/dL [facility] Glucose 292(H) 70 - 199 mg/dL [facility] Comment: Interpretive Data Fasting glucose >/= [...] interpretive data was last revised 2022. Calcium 9.2 8.5 - 10.3 mg/dL [facility] Bilirubin, total 2.5(H) 0.1 - 1.2 mg/dL [facility] Protein, pl 5.9(L) 6.5 - 8.5 g/dL [facility] Albumin 3.4(L) 3.5 - 5.0 g/dL [facility] Alk phos 91 40 - 130 Units/L [facility] ALT 33 7 - 45 Units/L [facility] AST 40 10 - 45 Units/L [facility] Blood 10/13/2024 10:4 0 AM SLIP INJECTOR AND APPLICATOR 10/13/2024 11:21 AM SLIP INJECTOR AND APPLICATOR Molina Charles MD LAB BLOOD ORDERABLES Final Result Performing Organization Address City/[facility]/ZIP Co de Phone Number [facility] [place] [address] * HLA Antibody Screen by PRA or SAB per Schedule (Class I and Class II) (10/12/2024 11:45 AM SLIP INJECTOR AND APPLICATOR) Blood 10/12/2024 11:4 5 AM SLIP INJECTOR AND APPLICATOR Narrative HISTOTRAC - SLIP INJECTOR AND APPLICATOR Sample received in lab and stored. No testing performed at this time. Timothy Pardo MD LAB BLOOD ORDERABL ES Final Result HISTOTRAC * (ABNORMAL) Protime-INR (10/05/2024) SCRIBED PT 15.1(A) 9.50 - 12.1 sec TXP NO LAB FOUND SCRIBED INR 1.4(A) 0.9 - 1.1 sec TXP NO LAB FOUND Blood 10/05/2024 Historical Provider LAB BLOOD ORDERABLES Edit ed Result - Final TXP NO LAB FOUND * (ABNORMAL) Comprehensive metabolic panel (10/05/2024) SCRIBED Sodium 137 136 - 145 mmol/L TXP NO LAB FOUND SCRIBED Potassium 3.6 3.5 - 5.1 mmol/L TXP NO LAB FOUND SCRIBED Chloride 97(A) 98 - 108 mmol/L TXP NO LAB FOUND SCRIBED Carbon Dioxide 27 21 - 32 mmol/L TXP NO LAB FOUND SCRIBED Urea Nitrogen (BUN) 40(A) 7 - 18 mg/dl TXP NO LAB FOUND SCRIBED Creatinine 2.20(A) 0.55 - 1.02 mg/dl TXP NO LAB FOUND SCRIBED Glucose 250(A) 70 - 99 mg/dl TXP NO LAB FOUND SCRIBED Calcium 9.2 8.5 - 10.1 mg/dl TXP NO LAB FOUND SCRIBED Bilirubin 4.7(A) 0 - 1 mg/dl TXP NO LAB FOUND SCRIBED Plasma Protein 6.4 6.4 - 8.2 g/dl TXP NO LAB FOUND SCRIBED Albumin 4.2 3.4 - 5 g/dl TXP NO LAB FOUND SCRIBED Alkaline Phosphatase 105 46 - 116 Units/L TXP NO LAB FOUND SCRIBED Alanine Transaminase (ALT) 51 14 - 59 Units/L TXP NO LAB FOUND SCRIBED Aspartate Transaminase (AST) 60(A) 15 - 37 Units/L TXP NO LAB FOUND Blood 10/05/2024 Historical Provider LAB BLOOD ORDERABLES Edit ed Result - Final TXP NO LAB FOUND * (ABNORMAL) POCT glucose (10/02/2024 4:21 PM SLIP INJECTOR AND APPLICATOR) Glucose, POC 407(H) 70 - 199 mg/dL Comment:Glu2: RN/MD Notified Glucose comment 1 Glu2: RN/MD Notified [facility] Blood 10/02/2024 4:21 PM SLIP INJECTOR AND APPLICATOR 10/02/2024 4:21 PM SLIP INJECTOR AND APPLICATOR us Molina Dsouza MD LAB POCT ORDERABLE S - DEVICE Final Result [facility] [place] [address] * PATIENT OBSERVER Evaluate and Treat (FEES) (10/02/2024 1:07 PM SLIP INJECTOR AND APPLICATOR) Narrative MANSITREAM - 10/02/2024 1:07 PM SLIP INJECTOR AND APPLICATOR Sondra Dumont SLP 10/02/2024 3:22 PM Speech-Language Pathology: Flexible Endoscopic Evaluation of Swallowing (FEES) HPI/PMH HPI/PMH: 63 y.o. F with hx of MASH cirrhosis and CKD currently listed for a simultaneous liver-kidney transplant (SLK), HTN, T2DM, atrial flutter, and ERNESTINE who presented to [facility] 09/24 as an OSH transfer for AMS. Pt was reportedly at baseline until 09/24 when EMS was called to her home as patient was found confused by her . Pt was initially brought to OSH ED, transferred to 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 Received On: 10/02/24 General Observations: Pt seen [...] deficits Secretions: Minimal Consistencies Administered: Thin liquids, [place] thick liquids, Honey thick liquids, Purees, Solids Thin Liquids: Laryngeal Penetration: Present Aspiration Present: Yes Timing: Before, During Amount: Moderate Response to aspiration: None Cough: Non-productive Unsuccessful Modifications: Chin tuck, Cough, Repeat swallow Penetration Aspiration Scale-Thin: 8-Material enters the airway, passes below the vocal folds and no effort is made to eject Zari Scale-Vallecular Residue-Thin Liquids: Moderate Mcpherson Scale-Pyriform Sinus Residue-Thin Liquids: Mild [place] Thickened Liquids: Laryngeal Penetration: Present Aspiration Present: Yes Timing: Before, During Amount: Trace Response to aspiration: None Unsuccessful Modifications: Repeat swallow, Cough, Chin tuck Penetration Aspiration Scale-[place]: 8-Material enters the airway, passes below the vocal folds and no effort is made to eject Zari Scale-Vallecular Residue-[place] Thickened Liquids: Mild Zari Scale-Pyriform Sinus Residue-[place] Thickened Liquids: None Honey Thickened Liquids: Laryngeal Penetration: None Aspiration Present: No Penetration Aspiration Scale-Honey: 1-Material does not enter airway Mcpherson Scale-Vallecular Residue-Honey Thickened Liquids: None Mcpherson Scale-Pyriform Sinus Residue-Honey Thickened Liquids: None Purees: Laryngeal Penetration: None Aspiration Present: No Penetration Aspiration Scale-Puree: 1-Material does not enter airway Zari Scale-Vallecular Residue-Puree: None Zari Scale-Pyriform Sinus Residue-Puree: Trace Solids: Laryngeal Penetration: None Aspiration Present: No Successful Modifications: Repeat swallow Penetration Aspiration Scale-Solids: 1-Material does not enter airway Zari Scale-Vallecular Residue-Solids: Mild Mcpherson Scale-Pyriform Sinus Residue-Solids: None Dysphagia Outcome and Severity Scale: Dysphagia Outcomes and Severity Scale: 4 Mild/Moderate dysphagia Levels 1 & 2 on the ALEJANDRINA indicate need for nonoral nutrition. Treatment Treatment was not provided this date. Please reference care plan for treatment goals and details, if indicated. Plan PATIENT OBSERVER Frequency of Services during current admission: 3-5x/wk PATIENT OBSERVER Recommendation (Add'l Services): Inpatient Rehab Facility Next Visit Plan:treatment/therapy Additional Referrals: PT/OT Discharge Summary Statement If this is the last swallow therapy visit, this serves as the discharge summary. Molina Dsouza MD PATIENT OBSERVER ORDERABLES Fi nal Result Performing Organization Address City/[facility] Co de Phone Number [facility] * (ABNORMAL) POCT glucose (10/02/2024 11:33 AM SLIP INJECTOR AND APPLICATOR) [facility] Glucose, POC 373(H) 70 - 199 mg/dL Comment:Glu2: RN/ Notified Glucose comment 1 Glu2: RN/ Notified CHARISSA [facility] Blood 10/02/2024 11:3 3 AM SLIP INJECTOR AND APPLICATOR 10/02/2024 11:33 AM SLIP INJECTOR AND APPLICATOR Molina Dsouza MD LAB POCT ORDERABLE S - DEVICE Final Result Performing Organization Address [facility] Co de Phone Number [facility] Department [place] [address] * (ABNORMAL) POCT glucose (10/02/2024 7:14 AM SLIP INJECTOR AND APPLICATOR) Glucose, POC 215(H) 70 - 199 mg/dL Comment:Glu2: RN/MD Notified Glucose comment 1 Glu2: RN/MD Notified [facility] Blood 10/02/2024 7:14 AM SLIP INJECTOR AND APPLICATOR 10/02/2024 7:14 AM SLIP INJECTOR AND APPLICATOR Molina Dsouza MD LAB POCT ORDERABLE S - DEVICE Final Result Performing Organization Address [facility]/ZIP Co de Phone Number [facility] Department [place] [address] * POCT glucose (10/02/2024 4:19 AM SLIP INJECTOR AND APPLICATOR) Glucose, POC 194 70 - 199 mg/dL Blood 10/02/2024 4:19 AM SLIP INJECTOR AND APPLICATOR 10/02/2024 4:19 AM SLIP INJECTOR AND APPLICATOR Molina Dsouza MD LAB POCT ORDERABLE S - DEVICE Final Result Performing Organization Address [facility] de Phone Number [facility] Department [place] [address] * (ABNORMAL) eGFR (10/01/2024 9:18 PM SLIP INJECTOR AND APPLICATOR) eGFR 26(L) >=60 mL/min/1. 73 m2 Comment: [...] last reviewed 2021. Blood 10/01/2024 9:18 PM SLIP INJECTOR AND APPLICATOR 10/01/2024 10:11 PM SLIP INJECTOR AND APPLICATOR Najma Pires MD LAB BLOOD ORDERABLES Final Result Performing Organization Address [facility] de Phone Number [facility] [place] [address] * (ABNORMAL) Protime-INR (10/01/2024 9:18 PM SLIP INJECTOR AND APPLICATOR) PT 17.6(H) 9.7 - 13.0 sec INR 1.61(H) 0.90 - 1.20 [facility] Comment: Interpretive data Oral anticoagulant therapeutic ranges: Venous thromboembolism prophylaxis or treatment: 2.0-3.0 CARDIOLOGY Standard range: 2.0-3.0 High-intensity range: 2.5-3.5 Refer to indication-specific guidelines for appropriate target ranges for prosthetic heart valve replacement. Current interpretive data was last revised on 2019. Blood 10/01/2024 9:18 PM SLIP INJECTOR AND APPLICATOR 10/01/2024 10:12 PM SLIP INJECTOR AND APPLICATOR Result [facility] Stuart Flores MD LAB BLOOD ORDERABLES Final Resul t Performing Organization Address [facility] Co de Phone Number [facility] Department [place] [address] * Phosphorus (10/01/2024 9:18 PM SLIP INJECTOR AND APPLICATOR) Phosphorus, pl 2.4 2.3 - 4.5 mg/dL Blood 10/01/2024 9:18 PM SLIP INJECTOR AND APPLICATOR 10/01/2024 10:11 PM SLIP INJECTOR AND APPLICATOR Stuart Flores MD LAB BLOOD ORDERABLES Final Resul t Performing Organization Address City/[facility]/ZIP Co de Phone Number [facility] [place] [address] * Magnesium (10/01/2024 9:18 PM SLIP INJECTOR AND APPLICATOR) Pathologist [facility] Magnesium 2.1 1.4 - 2.5 mg/dL Blood 10/01/2024 9:18 PM SLIP INJECTOR AND APPLICATOR 10/01/2024 10:11 PM SLIP INJECTOR AND APPLICATOR Stuart Flores MD LAB BLOOD ORDERABLES Final Resul t Performing Organization Address [facility] de Phone Number [facility] [place] [address] * (ABNORMAL) Comprehensive metabolic panel (10/01/2024 9:18 PM SLIP INJECTOR AND APPLICATOR) Pathologist [facility] Sodium 140 135 - 145 mmol/L Potassium, pl 3.5 3.3 - 4.9 mmol/L [facility] Chloride 97 97 - 110 mmol/L [facility] CO2 28 22 - 32 mmol/L [facility] Anion gap 15 2 - 15 mmol/L [facility] BUN 50(H) 6 - 25 mg/dL [facility] Creatinine 2.12(H) 0.60 - 1.10 mg/dL [facility] Glucose 315(H) 70 - 199 mg/dL [facility] Comment: Interpretive Data Fasting glucose >/= [...] 2022. Calcium 10.2 8.5 - 10.3 mg/dL [facility] Bilirubin, total 4.0(H) 0.1 - 1.2 mg/dL [facility] Protein, pl 7.1 6.5 - 8.5 g/dL [facility] Albumin 4.6 3.5 - 5.0 g/dL [facility] Alk phos 70 40 - 130 Units/L [facility] ALT 28 7 - 45 Units/L [facility] AST 54(H) 10 - 45 Units/L [facility] Blood 10/01/2024 9:18 PM SLIP INJECTOR AND APPLICATOR 10/01/2024 10:11 PM SLIP INJECTOR AND APPLICATOR us Najma Pires MD LAB BLOOD ORDERABLES Final Result Performing Organization Address [facility] Co de Phone Number [facility] [place] [address] * (ABNORMAL) POCT glucose (10/01/2024 7:35 PM SLIP INJECTOR AND APPLICATOR) Glucose, POC 295(H) 70 - 199 mg/dL Blood 10/01/2024 7:35 PM SLIP INJECTOR AND APPLICATOR 10/01/2024 7:35 PM SLIP INJECTOR AND APPLICATOR Molina Dsouza MD LAB POCT ORDERABLE S - DEVICE Final Result Performing Organization Address [facility] Co de Phone Number [facility] [place] [employer] [place] [address] * (ABNORMAL) POCT glucose (10/01/2024 7:34 PM SLIP INJECTOR AND APPLICATOR) Glucose, POC 361(H) 70 - 199 mg/dL Blood 10/01/2024 7:34 PM SLIP INJECTOR AND APPLICATOR 10/01/2024 7:34 PM SLIP INJECTOR AND APPLICATOR Molina Dsouza MD LAB POCT ORDERABLE S - DEVICE Final Result Performing Organization Address [facility] Co de Phone Number [facility] [place] [address] * (ABNORMAL) POCT glucose (10/01/2024 5:12 PM SLIP INJECTOR AND APPLICATOR) Glucose, POC 281(H) 70 - 199 mg/dL Blood 10/01/2024 5:12 PM SLIP INJECTOR AND APPLICATOR 10/01/2024 5:12 PM SLIP INJECTOR AND APPLICATOR Molina Dsouza MD LAB POCT ORDERABLE S - DEVICE Final Result Performing Organization Address [facility] de Phone Number [facility] [employer] [address] * (ABNORMAL) POCT glucose (10/01/2024 11:45 AM SLIP INJECTOR AND APPLICATOR) [facility] Glucose, POC 262(H) 70 - 199 mg/dL Blood 10/01/2024 11:4 5 AM SLIP INJECTOR AND APPLICATOR 10/01/2024 11:45 AM SLIP INJECTOR AND APPLICATOR Molina Dsozua MD LAB POCT ORDERABLE S - DEVICE Final Result Performing Organization Address [facility] de Phone Number [facility] [employer] [address] * POCT glucose (10/01/2024 7:45 AM SLIP INJECTOR AND APPLICATOR) [facility] Glucose, POC 176 70 - 199 mg/dL Blood 10/01/2024 7:45 AM SLIP INJECTOR AND APPLICATOR 10/01/2024 7:45 AM SLIP INJECTOR AND APPLICATOR Molina Dsouza MD LAB POCT ORDERABLE S - DEVICE Final Result Performing Organization Address [facility] de Phone Number [facility] [place] [address] * (ABNORMAL) eGFR (09/30/2024 9:22 PM SLIP INJECTOR AND APPLICATOR) [facility] eGFR 23(L) >=60 mL/min/1. 73 m2 Comment: [...] last reviewed 2021. Blood 09/30/2024 9:22 PM SLIP INJECTOR AND APPLICATOR 09/30/2024 11:32 PM SLIP INJECTOR AND APPLICATOR us Najma Pires MD LAB BLOOD ORDERABLES Final Result [facility] Department [place] [address] * (ABNORMAL) Differential, auto (09/30/2024 9:22 PM SLIP INJECTOR AND APPLICATOR) Pathologist [facility] Neutrophil abs 3.3 1.5 - 6.5 K/cumm Imm gran abs 0.0 0.0 - 0.1 K/cumm [facility] Lymphocyte abs 1.1 0.8 - 3.3 K/cumm [facility] Monocyte abs 0.7 0.2 - 0.8 K/cumm [facility] Eosinophil abs 0.7(H) 0.0 - 0.5 K/cumm [facility] Basophil abs 0.0 0.0 - 0.1 K/cumm [facility] Neutrophil pct 56.5 % [facility] Comment: Interpretive Data Percent cell count reference ranges are not reported, since discordance with absolute values may lead to misinterpretation of CBC data. Current Interpretive Data was last revised on 2017. Imm gran pct 0.5 % [facility] Comment: Interpretive Data Percent cell count reference ranges are not reported, since discordance with absolute values may lead to misinterpretation of CBC data. Current Interpretive Data was last revised on 2017. Lymphocyte pct 18.8 % [facility] Comment: Interpretive Data Percent cell count reference ranges are not reported, since discordance with absolute values may lead to misinterpretation of CBC data. Current Interpretive Data was last revised on 2017. Monocyte pct 11.7 % [facility] Comment: Interpretive Data Percent cell count reference ranges are not reported, since discordance with absolute values may lead to misinterpretation of CBC data. Current Interpretive Data was last revised on 2017. Eosinophil pct 12.0 % [facility] Comment: Interpretive Data Percent cell count reference ranges are not reported, since discordance with absolute values may lead to misinterpretation of CBC data. Current Interpretive Data was last revised on 2017. Basophil pct 0.5 % [facility] Comment: Interpretive Data Percent cell count reference ranges are not reported, since discordance with absolute values may lead to misinterpretation of CBC data. Current Interpretive Data was last revised on 2017. Blood 09/30/2024 9:22 PM SLIP INJECTOR AND APPLICATOR 09/30/2024 11:33 PM SLIP INJECTOR AND APPLICATOR us Molina Dsouza MD LAB BLOOD ORDERABL ES Final Result [facility] Department [place] [address] * (ABNORMAL) CBC with auto differential (09/30/2024 9:22 PM SLIP INJECTOR AND APPLICATOR) WBC 5.9 3.8 - 9.9 K/cumm Hgb 11.7(L) 11.9 - 15.5 g/dL [facility] Hct 35.1(L) 35.6 - 45.5 % [facility] Plt 50(L) 150 - 400 K/cumm [facility] MPV 12.5(H) 9.1 - 12.3 fL [facility] RBC 3.67(L) 3.90 - 5.20 M/cumm [facility] MCV 95.6 81.3 - 96.4 fL [facility] MCH 31.9 27.1 - 33.3 pg [facility] MCHC 33.3 32.3 - 35.7 g/dL [facility] RDW CV 14.7 11.1 - 14.9 % [facility] RDW SD 50.5(H) 35.7 - 48.1 fL [facility] NRBC abs 0.00 0.00 - 0.01 K/cumm [facility] Blood 09/30/2024 9:22 PM SLIP INJECTOR AND APPLICATOR 09/30/2024 11:33 PM SLIP INJECTOR AND APPLICATOR Molina Dsouza MD LAB BLOOD ORDERABL ES Final Result Performing Organization Address [facility] de Phone Number [facility] Department [place] [employer] [place] [address] * Vitamin D 25 hydroxy (09/30/2024 9:22 PM SLIP INJECTOR AND APPLICATOR) Pathologist [facility] Vitamin D 25-OH 33 30 - 80 ng/mL Blood 09/30/2024 9:22 PM SLIP INJECTOR AND APPLICATOR 09/30/2024 11:34 PM SLIP INJECTOR AND APPLICATOR Molina Dsouza MD LAB BLOOD ORDERABL ES Final Result Performing Organization Address [facility] de Phone Number [facility] Department [place] [employer] [place] [address] * (ABNORMAL) Protime-INR (09/30/2024 9:22 PM SLIP INJECTOR AND APPLICATOR) PT 16.9(H) 9.7 - 13.0 sec INR 1.55(H) 0.90 - 1.20 [facility] Comment: Interpretive data Oral anticoagulant therapeutic ranges: Venous thromboembolism prophylaxis or treatment: 2.0-3.0 CARDIOLOGY Standard range: 2.0-3.0 High-intensity range: 2.5-3.5 Refer to indication-specific guidelines for appropriate target ranges for prosthetic heart valve replacement. Current interpretive data was last revised on 2019. Blood 09/30/2024 9:22 PM SLIP INJECTOR AND APPLICATOR 09/30/2024 11:33 PM SLIP INJECTOR AND APPLICATOR us Stuart Flores MD LAB BLOOD ORDERABLES Final Resul t Performing Organization Address [facility] Co de Phone Number [facility] [place] [address] * (ABNORMAL) Phosphorus (09/30/2024 9:22 PM SLIP INJECTOR AND APPLICATOR) Phosphorus, pl 2.2(L) 2.3 - 4.5 mg/dL Blood 09/30/2024 9:22 PM SLIP INJECTOR AND APPLICATOR 09/30/2024 11:32 PM SLIP INJECTOR AND APPLICATOR Stuart Flores MD LAB BLOOD ORDERABLES Final Resul t Performing Organization Address [facility] Co de Phone Number [facility] [place] [employer] [place] [address] * PTH (09/30/2024 9:22 PM SLIP INJECTOR AND APPLICATOR) PTH 27 15 - 65 pg/mL Blood 09/30/2024 9:22 PM SLIP INJECTOR AND APPLICATOR 09/30/2024 11:34 PM SLIP INJECTOR AND APPLICATOR us Molina Dsouza MD LAB BLOOD ORDERABL ES Final Result Performing Organization Address [facility] de Phone Number [facility] [employer] [place] [address] * Magnesium (09/30/2024 9:22 PM SLIP INJECTOR AND APPLICATOR) Magnesium 2.5 1.4 - 2.5 mg/dL Blood 09/30/2024 9:22 PM SLIP INJECTOR AND APPLICATOR 09/30/2024 11:32 PM SLIP INJECTOR AND APPLICATOR Stuart Flores MD LAB BLOOD ORDERABLES Final Resul t [facility] [place] [address] * (ABNORMAL) Comprehensive metabolic panel (09/30/2024 9:22 PM SLIP INJECTOR AND APPLICATOR) Sodium 147(H) 135 - 145 mmol/L Potassium, pl 3.8 3.3 - 4.9 mmol/L [facility] Chloride 102 97 - 110 mmol/L [facility] CO2 31 22 - 32 mmol/L [facility] Anion gap 14 2 - 15 mmol/L [facility] BUN 46(H) 6 - 25 mg/dL [facility] Creatinine 2.31(H) 0.60 - 1.10 mg/dL [facility] Glucose 262(H) 70 - 199 mg/dL [facility] Comment: Interpretive Data Fasting glucose >/= [...] 2022. Calcium 10.8(H) 8.5 - 10.3 mg/dL [facility] Bilirubin, total 3.7(H) 0.1 - 1.2 mg/dL [facility] Protein, pl 7.6 6.5 - 8.5 g/dL [facility] Albumin 5.2(H) 3.5 - 5.0 g/dL [facility] Alk phos 74 40 - 130 Units/L [facility] ALT 24 7 - 45 Units/[facility] AST 45 10 - 45 Units/L [facility] Blood 09/30/2024 9:22 PM SLIP INJECTOR AND APPLICATOR 09/30/2024 11:32 PM SLIP INJECTOR AND APPLICATOR us Najma Pires MD LAB BLOOD ORDERABLES Final Result Performing Organization Address [facility] [place] [address] * (ABNORMAL) POCT glucose (09/30/2024 7:58 PM SLIP INJECTOR AND APPLICATOR) Glucose, POC 277(H) 70 - 199 mg/dL Comment:Glu2: RN/MD Notified Glucose comment 1 Glu2: RN/MD Notified [facility] Blood 09/30/2024 7:58 PM SLIP INJECTOR AND APPLICATOR 09/30/2024 7:58 PM SLIP INJECTOR AND APPLICATOR us Molina Dsouza MD LAB POCT ORDERABLE S - DEVICE Final Result Performing Organization Address [facility] de Phone Number [facility] [place] [address] * POCT glucose (09/30/2024 4:20 PM SLIP INJECTOR AND APPLICATOR) Glucose, POC 183 70 - 199 mg/dL Blood 09/30/2024 4:20 PM SLIP INJECTOR AND APPLICATOR 09/30/2024 4:20 PM SLIP INJECTOR AND APPLICATOR us Molina Dsouza MD LAB POCT ORDERABLE S - DEVICE Final Result Performing Organization Address [facility] [place] [address] * POCT glucose (09/30/2024 11:43 AM SLIP INJECTOR AND APPLICATOR) Glucose, POC 193 70 - 199 mg/dL Blood 09/30/2024 11:4 3 AM SLIP INJECTOR AND APPLICATOR 09/30/2024 11:43 AM SLIP INJECTOR AND APPLICATOR us Molina Dsouza MD LAB POCT ORDERABLE S - DEVICE Final Result Performing Organization Address [facility] Co de Phone Number [facility] [employer] [place] [address] * POCT glucose (09/30/2024 7:54 AM SLIP INJECTOR AND APPLICATOR) Glucose, POC 171 70 - 199 mg/dL Blood 09/30/2024 7:54 AM SLIP INJECTOR AND APPLICATOR 09/30/2024 7:54 AM SLIP INJECTOR AND APPLICATOR Molina Dsouza MD LAB POCT ORDERABLE S - DEVICE Final Result Performing Organization Address [facility] [place] [address] * POCT glucose (09/30/2024 7:36 AM SLIP INJECTOR AND APPLICATOR) Glucose, POC 170 70 - 199 mg/dL Blood 09/30/2024 7:36 AM SLIP INJECTOR AND APPLICATOR 09/30/2024 7:36 AM SLIP INJECTOR AND APPLICATOR Molina Dsouza MD LAB POCT ORDERABLE S - DEVICE Final Result Performing Organization Address [facility] Co de Phone Number [facility] [employer] [address] * POCT glucose (09/30/2024 12:28 AM SLIP INJECTOR AND APPLICATOR) Glucose, POC 181 70 - 199 mg/dL Blood 09/30/2024 12:2 8 AM SLIP INJECTOR AND APPLICATOR 09/30/2024 12:28 AM SLIP INJECTOR AND APPLICATOR us Molina Dsouza MD LAB POCT ORDERABLE S - DEVICE Final Result Performing Organization Address [facility] Co de Phone Number [facility] [place] [address] * (ABNORMAL) eGFR (09/29/2024 8:49 PM SLIP INJECTOR AND APPLICATOR) eGFR 22(L) >=60 mL/min/1. 73 m2 Comment: [...] last reviewed 2021. Blood 09/29/2024 8:49 PM SLIP INJECTOR AND APPLICATOR 09/29/2024 10:02 PM SLIP INJECTOR AND APPLICATOR us Najma Pires MD LAB BLOOD ORDERABLES Final Result [facility] [place] [address] * (ABNORMAL) Protime-INR (09/29/2024 8:49 PM SLIP INJECTOR AND APPLICATOR) PT 16.0(H) 9.7 - 13.0 sec INR 1.47(H) 0.90 - 1.[address] [facility] Comment: Interpretive data Oral anticoagulant therapeutic ranges: Venous thromboembolism prophylaxis or treatment: 2.0-3.0 CARDIOLOGY Standard range: 2.0-3.0 High-intensity range: 2.5-3.5 Refer to indication-specific guidelines for appropriate target ranges for prosthetic heart valve replacement. Current interpretive data was last revised on 2019. Blood 09/29/2024 8:49 PM SLIP INJECTOR AND APPLICATOR 09/29/2024 10:00 PM SLIP INJECTOR AND APPLICATOR us Stuart Flores MD LAB BLOOD ORDERABLES Final Resul t Performing Organization Address [facility] de Phone Number [facility] [place] [address] * (ABNORMAL) Phosphorus (09/29/2024 8:49 PM SLIP INJECTOR AND APPLICATOR) Phosphorus, pl 1.6(L) 2.3 - 4.5 mg/dL Blood 09/29/2024 8:49 PM SLIP INJECTOR AND APPLICATOR 09/29/2024 10:02 PM SLIP INJECTOR AND APPLICATOR us Stuart Flores MD LAB BLOOD ORDERABLES Final Resul t Performing Organization Address [facility] de Phone Number [facility] [place] [address] * (ABNORMAL) Magnesium (09/29/2024 8:49 PM SLIP INJECTOR AND APPLICATOR) Pathologist [facility] Magnesium 2.8(H) 1.4 - 2.5 mg/dL Blood 09/29/2024 8:49 PM SLIP INJECTOR AND APPLICATOR 09/29/2024 10:02 PM SLIP INJECTOR AND APPLICATOR us Stuart Flores MD LAB BLOOD ORDERABLES Final Resul t Performing Organization Address [facility] Co de Phone Number [facility] [place] [address] * (ABNORMAL) Comprehensive metabolic panel (09/29/2024 8:49 PM SLIP INJECTOR AND APPLICATOR) Sodium 141 135 - 145 mmol/L Potassium, pl 3.5 3.3 - 4.9 mmol/L [facility] Chloride 100 97 - 110 mmol/L [facility] CO2 29 22 - 32 mmol/L [facility] Anion gap 12 2 - 15 mmol/L [facility] BUN 56(H) 6 - 25 mg/dL [facility] Creatinine 2.41(H) 0.60 - 1.10 mg/dL [facility] Glucose 241(H) 70 - 199 mg/dL [facility] Comment: Interpretive Data Fasting glucose >/= [...] 2022. Calcium 10.9(H) 8.5 - 10.3 mg/dL [facility] Bilirubin, total 3.4(H) 0.1 - 1.2 mg/dL [facility] Protein, pl 7.5 6.5 - 8.5 g/dL [facility] Albumin 5.0 3.5 - 5.0 g/dL [facility] Alk phos 79 40 - 130 Units/L [facility] ALT 19 7 - 45 Units/L [facility] AST 38 10 - 45 Units/L [facility] Blood 09/29/2024 8:49 PM SLIP INJECTOR AND APPLICATOR 09/29/2024 10:02 PM SLIP INJECTOR AND APPLICATOR us Najma Pires MD LAB BLOOD ORDERABLES Final Result Performing Organization Address [facility]/ZIP Co de Phone Number [facility] [place] [address] * (ABNORMAL) POCT glucose (09/29/2024 8:08 PM SLIP INJECTOR AND APPLICATOR) [facility] Glucose, POC 225(H) 70 - 199 mg/dL Blood 09/29/2024 8:08 PM SLIP INJECTOR AND APPLICATOR 09/29/2024 8:08 PM SLIP INJECTOR AND APPLICATOR Molina Dsouza MD LAB POCT ORDERABLE S - DEVICE Final Result Performing Organization Address [facility]/ZIP Co de Phone Number [facility] [place] [address] * (ABNORMAL) POCT glucose (09/29/2024 4:50 PM SLIP INJECTOR AND APPLICATOR) Glucose, POC 236(H) 70 - 199 mg/dL Blood 09/29/2024 4:50 PM SLIP INJECTOR AND APPLICATOR 09/29/2024 4:50 PM SLIP INJECTOR AND APPLICATOR Molina Dsouza MD LAB POCT ORDERABLE S - DEVICE Final Result Performing Organization Address [facility] Co [place] [address] * (ABNORMAL) POCT glucose (09/29/2024 11:35 AM SLIP INJECTOR AND APPLICATOR) Glucose, POC 230(H) 70 - 199 mg/dL Blood 09/29/2024 11:3 5 AM SLIP INJECTOR AND APPLICATOR 09/29/2024 11:35 AM SLIP INJECTOR AND APPLICATOR Molina Dsouza MD LAB POCT ORDERABLE S - DEVICE Final Result Performing Organization Address [facility] [place] [address] * PATIENT OBSERVER Evaluate and Treat (FEES) (09/29/2024 10:55 AM SLIP INJECTOR AND APPLICATOR) Narrative [facility] - 09/29/2024 10:55 AM SLIP INJECTOR AND APPLICATOR Marina Ty, PATIENT OBSERVER 09/29/2024 3:25 PM Speech-Language Pathology: Flexible Endoscopic Evaluation of Swallowing (FEES) [facility] 63 y.o. F with hx of LYONS cirrhosis and CKD currently listed for a simultaneous liver-kidney transplant (SLK), HTN, T2DM, atrial flutter, and ERNESTINE who presented to [facility] 09/24 as an OSH transfer for AMS. Pt was reportedly at baseline until 09/24 when EMS was called to her home as patient was found confused by her . Pt was initially brought to OSH ED, transferred to [facility] ED as she is an active liver transplant patient. EGD October 2022 w/o EV. #AMS, likely hepatic encephalopathy, improving Respiratory/Intubation Status: RA Imaging: CT Abdomen/Pelvis 09/26- New right lower lobe 8 mm pulmonary nodule. CXR 09/24- Lungs are clear. No pleural effusion or pneumothorax. Neuro Outside CT 09/24- No acute intracranial abnormality. Precautions: fall, ERNESTINE PLOF: CSE at [facility] on 08/02/2022 recommending regular solids with thin liquids, meds with puree, full supervision with meals, limit distractions Current Diet Order:npo, ice chips for pleasure pending fees Baseline Diet: reports regular diet General Information Nael Levine 09/29/24 PATIENT OBSERVER Received On: 09/29/24 General Observations: Seen sitting upright in bed, pleasant and cooperative, functional voicing with slurred speech. Pain Score: 0 - No pain If pain >4, was RN notified? None Observed Patient Stated Goal/Comments: to start eating again Clinical Impression & Professional Recommendations Diet Solids Recommendation: Regular Diet Liquids Recommendations: [place] thick Recommended Form of Medications: As tolerated [...] deficits Secretions: Minimal Consistencies Administered: Thin liquids, [place] thick liquids, Purees, Solids (with green food coloring) Thin Liquids: Laryngeal Penetration: Present Aspiration Present: Yes Timing: Before Amount: Trace Response to aspiration: Throat clearing, None Cough: Non-productive Unsuccessful Modifications: Other (comment) (bolus hold) Penetration Aspiration Scale-Thin: 8-Material enters the airway, passes below the vocal folds and no effort is made to eject Mcpherson Scale-Vallecular Residue-Thin Liquids: Trace Mcpherson Scale-Pyriform Sinus Residue-Thin Liquids: Trace [place] Thickened Liquids: Laryngeal Penetration: None Aspiration Present: No Penetration Aspiration Scale-[place]: 1-Material does not enter airway Zari Scale-Vallecular Residue-[place] Thickened Liquids: Trace Mcpherson Scale-Pyriform Sinus Residue-[place] Thickened Liquids: Trace Honey Thickened Liquids: Purees: Laryngeal Penetration: None Aspiration Present: No Penetration Aspiration Scale-Puree: 1-Material does not enter airway Mcpherson Scale-Vallecular Residue-Puree: Trace Mcpherson Scale-Pyriform Sinus Residue-Puree: Trace Solids: Laryngeal Penetration: [...] treatment goals and details, if indicated. Plan PATIENT OBSERVER Frequency of Services during current admission: 1-2x/wk PATIENT OBSERVER Recommendation (Add'l Services): Defer at this time Next Visit Plan:treatment/therapy and repeat instrumental evaluation 3-5 days Additional Referrals: none at this time Discharge Summary Statement If this is the last swallow therapy visit, this serves as the discharge summary. us Molina Dsouza MD PATIENT OBSERVER ORDERABLES Fi nal Result [facility] * PATIENT OBSERVER Evaluate and Treat (VFSS) (09/29/2024 10:55 AM SLIP INJECTOR AND APPLICATOR) Narrative Marina Ty, PATIENT OBSERVER - 09/29/2024 10:55 AM SLIP INJECTOR AND APPLICATOR Marina Ty, PATIENT OBSERVER 09/29/2024 3:25 PM Speech-Language Pathology: Flexible Endoscopic Evaluation of Swallowing (FEES) HPI/PMH 63 y.o. F with hx of LYONS cirrhosis and CKD currently listed for a simultaneous liver-kidney transplant (SLK), HTN, T2DM, atrial flutter, and ERNESTINE who presented to [facility] 09/24 as an OSH transfer for AMS. Pt was reportedly at baseline until 0400 09/24 when EMS was called to her home as patient was found confused by her . Pt was initially brought to OSH ED, transferred to [facility] ED as she is an active liver transplant patient. EGD October 2022 w/o EV. #AMS, likely hepatic encephalopathy, improving Respiratory/Intubation Status: RA Imaging: CT Abdomen/Pelvis 09/26- New right lower lobe 8 mm pulmonary nodule. CXR 09/24- Lungs are clear. No pleural effusion or pneumothorax. Neuro Outside CT 09/24- No acute intracranial abnormality. Precautions: fall, ERNESTINE PLOF: CSE at [facility] on 08/02/2022 recommending regular solids with thin liquids, meds with puree, full supervision with meals, limit distractions Current Diet Order:npo, ice chips for pleasure pending fees Baseline Diet: reports regular diet General Information Nael Levine 09/29/24 PATIENT OBSERVER Received On: 09/29/24 General Observations: Seen sitting upright in bed, pleasant and cooperative, functional voicing with slurred speech. Pain Score: 0 - No pain If pain >4, was RN notified? None Observed Patient Stated Goal/Comments: to start eating again Clinical Impression & Professional Recommendations Diet Solids Recommendation: Regular Diet Liquids Recommendations: [place] thick Recommended Form of Medications: As tolerated [...] deficits Secretions: Minimal Consistencies Administered: Thin liquids, [place] thick liquids, Purees, Solids (with green food [...] Trace Zari Scale-Pyriform Sinus Residue-Thin Liquids: Trace [place] Thickened Liquids: Laryngeal Penetration: None Aspiration Present: No Penetration Aspiration Scale-[place]: 1-Material does not enter airway Zari Scale-Vallecular Residue-[place] Thickened Liquids: Trace Mcpherson Scale-Pyriform Sinus Residue-[place] Thickened Liquids: Trace Honey Thickened Liquids: Purees: Laryngeal Penetration: None Aspiration Present: No Penetration Aspiration Scale-Puree: 1-Material does not enter airway Zari Scale-Vallecular Residue-Puree: Trace Mcpherson Scale-Pyriform Sinus Residue-Puree: Trace Solids: Laryngeal Penetration: None Aspiration Present: No Penetration Aspiration Scale-Solids: 1-Material does not enter airway Mcpherson Scale-Vallecular Residue-Solids: Moderate Mcpherson Scale-Pyriform Sinus Residue-Solids: Moderate Dysphagia Outcome and Severity Scale: Dysphagia Outcomes and Severity Scale: 5 Mild dysphagia Levels 1 & 2 on the ALEJANDRINA indicate need for nonoral nutrition. Treatment Treatment was not provided this date. Please reference care plan for treatment goals and details, if indicated. Plan PATIENT OBSERVER Frequency of Services during current admission: 1-2x/wk PATIENT OBSERVER Recommendation (Add'l Services): Defer at this time Next Visit Plan:treatment/therapy and repeat instrumental evaluation 3-5 days Additional Referrals: none at this time Discharge Summary Statement If this is the last swallow therapy visit, this serves as the discharge summary. us Molina Dsouza MD PATIENT OBSERVER ORDERABLES Fi nal Result * POCT glucose (09/29/2024 7:34 AM SLIP INJECTOR AND APPLICATOR) Glucose, POC 185 70 - 199 mg/dL Blood 09/29/2024 7:34 AM SLIP INJECTOR AND APPLICATOR 09/29/2024 7:34 AM SLIP INJECTOR AND APPLICATOR us Molina Dsouza MD LAB POCT ORDERABLE S - DEVICE Final Result Performing Organization Address [facility] Co de Phone Number [facility] [employer] [address] * (ABNORMAL) POCT glucose (09/29/2024 4:49 AM SLIP INJECTOR AND APPLICATOR) Glucose, POC 203(H) 70 - 199 mg/dL Comment:Glu2: RN/MD Notified Glucose comment 1 Glu2: RN/MD Notified [facility] Blood 09/29/2024 4:49 AM SLIP INJECTOR AND APPLICATOR 09/29/2024 4:49 AM SLIP INJECTOR AND APPLICATOR us Molina Dsouza MD LAB POCT ORDERABLE S - DEVICE Final Result Performing Organization Address City/[facility]/ZIP Co de Phone Number [facility] [place] [address] * POCT glucose (09/29/2024 12:25 AM SLIP INJECTOR AND APPLICATOR) Glucose, POC 179 70 - 199 mg/dL Blood 09/29/2024 12:2 5 AM SLIP INJECTOR AND APPLICATOR 09/29/2024 12:25 AM SLIP INJECTOR AND APPLICATOR Molina Dsouza MD LAB POCT ORDERABLE S - DEVICE Final Result Performing Organization Address City/[facility]/ZIP Co de Phone Number CHARISSA [facility] [employer] [place] [address] * (ABNORMAL) eGFR (09/28/2024 9:17 PM SLIP INJECTOR AND APPLICATOR) Pathologist [facility] eGFR 21(L) >=60 mL/min/1. 73 m2 Comment: [...] last reviewed 2021. Blood 09/28/2024 9:17 PM SLIP INJECTOR AND APPLICATOR 09/28/2024 10:40 PM SLIP INJECTOR AND APPLICATOR us Najma Pires MD LAB BLOOD ORDERABLES Final Result CHARISSA [facility] [place] [address] * (ABNORMAL) Differential, auto (09/28/2024 9:17 PM SLIP INJECTOR AND APPLICATOR) Neutrophil abs 3.4 1.5 - 6.5 K/cumm Imm gran abs 0.0 0.0 - 0.1 K/cumm [facility] Lymphocyte abs 1.2 0.8 - 3.3 K/cumm [facility] Monocyte abs 0.9(H) 0.2 - 0.8 K/cumm [facility] Eosinophil abs 0.9(H) 0.0 - 0.5 K/cumm [facility] Basophil abs 0.0 0.0 - 0.1 [facility] Neutrophil pct 52.8 % [facility] Comment: Interpretive Data Percent cell count reference ranges are not reported, since discordance with absolute values may lead to misinterpretation of CBC data. Current Interpretive Data was last revised on 2017. Imm gran pct 0.5 % [facility] Comment: Interpretive Data Percent cell count reference ranges are not reported, since discordance with absolute values may lead to misinterpretation of CBC data. Current Interpretive Data was last revised on 2017. Lymphocyte pct 18.2 % [facility] Comment: Interpretive Data Percent cell count reference ranges are not reported, since discordance with absolute values may lead to misinterpretation of CBC data. Current Interpretive Data was last revised on 2017. Monocyte pct 14.5 % [facility] Comment: Interpretive Data Percent cell count reference ranges are not reported, since discordance with absolute values may lead to misinterpretation of CBC data. Current Interpretive Data was last revised on 2017. Eosinophil pct 13.4 % [facility] Comment: Interpretive Data Percent cell count reference ranges are not reported, since discordance with absolute values may lead to misinterpretation of CBC data. Current Interpretive Data was last revised on 2017. Basophil pct 0.6 % [facility] Comment: Interpretive Data Percent cell count reference ranges are not reported, since discordance with absolute values may lead to misinterpretation of CBC data. Current Interpretive Data was last revised on 2017. Blood 09/28/2024 9:17 PM SLIP INJECTOR AND APPLICATOR 09/28/2024 10:40 PM SLIP INJECTOR AND APPLICATOR Najma Pires MD LAB BLOOD ORDERABLES Final Result Performing Organization Address City/[facility] Co de Phone Number [facility] Department [place] [employer] [place] [address] * (ABNORMAL) CBC with auto differential (09/28/2024 9:17 PM SLIP INJECTOR AND APPLICATOR) WBC 6.4 3.8 - 9.9 K/cumm Hgb 11.6(L) 11.9 - 15.5 g/dL [facility] Hct 35.4(L) 35.6 - 45.5 % [facility] Plt 62(L) 150 - 400 K/cumm [facility] MPV 11.5 9.1 - 12.3 fL [facility] RBC 3.65(L) 3.90 - 5.20 M/cumm [facility] MCV 97.0(H) 81.3 - 96.4 fL [facility] MCH 31.8 27.1 - 33.3 pg [facility] MCHC 32.8 32.3 - 35.7 g/dL [facility] RDW CV 14.5 11.1 - 14.9 % [facility] RDW SD 51.1(H) 35.7 - 48.1 fL [facility] NRBC abs 0.00 0.00 - 0.01 K/cumm [facility] Blood 09/28/2024 9:17 PM SLIP INJECTOR AND APPLICATOR 09/28/2024 10:40 PM SLIP INJECTOR AND APPLICATOR Najma Pires MD LAB BLOOD ORDERABLES Final Result [facility] [place] [address] * (ABNORMAL) Protime-INR (09/28/2024 9:17 PM SLIP INJECTOR AND APPLICATOR) PT 15.4(H) 9.7 - 13.0 sec INR 1.42(H) 0.90 - 1.20 [facility] Comment: Interpretive data Oral anticoagulant therapeutic ranges: Venous thromboembolism prophylaxis or treatment: 2.0-3.0 CARDIOLOGY Standard range: 2.0-3.0 High-intensity range: 2.5-3.5 Refer to indication-specific guidelines for appropriate target ranges for prosthetic heart valve replacement. Current interpretive data was last revised on 2019. Blood 09/28/2024 9:17 PM SLIP INJECTOR AND APPLICATOR 09/28/2024 10:49 PM SLIP INJECTOR AND APPLICATOR us Stuart Flores MD LAB BLOOD ORDERABLES Final Resul t Performing Organization Address City/[facility] Co de Phone Number [facility] [employer] [place] [address] * Phosphorus (09/28/2024 9:17 PM SLIP INJECTOR AND APPLICATOR) [facility] Phosphorus, pl 2.3 2.3 - 4.5 mg/dL Blood 09/28/2024 9:17 PM SLIP INJECTOR AND APPLICATOR 09/28/2024 10:40 PM SLIP INJECTOR AND APPLICATOR us Stuart Flores MD LAB BLOOD ORDERABLES Final Resul t Performing Organization Address [facility] Co de Phone Number [facility] Department [place] [employer] [place] [address] * (ABNORMAL) Magnesium (09/28/2024 9:17 PM SLIP INJECTOR AND APPLICATOR) [facility] Magnesium 2.8(H) 1.4 - 2.5 mg/dL Blood 09/28/2024 9:17 PM SLIP INJECTOR AND APPLICATOR 09/28/2024 10:40 PM SLIP INJECTOR AND APPLICATOR us Stuart Flores MD LAB BLOOD ORDERABLES Final Resul t Performing Organization Address [facility] Co de Phone Number [facility] [place] [address] * (ABNORMAL) Hemoglobin A1c (09/28/2024 9:17 PM SLIP INJECTOR AND APPLICATOR) Hgb A1C 8.5(H) 4.0 - 5.6 % Estimated Average Glucose 197 mg/dL [facility] Blood 09/28/2024 9:17 PM SLIP INJECTOR AND APPLICATOR 09/28/2024 10:44 PM SLIP INJECTOR AND APPLICATOR us Swapnil Moore MD LAB BLOOD ORDERABLES Fin al Result [facility] [place] [address] * (ABNORMAL) Comprehensive metabolic panel (09/28/2024 9:17 PM SLIP INJECTOR AND APPLICATOR) Pathologist [facility] Sodium 144 135 - 145 mmol/L Potassium, pl 3.4 3.3 - 4.9 mmol/L [facility] Chloride 101 97 - 110 mmol/L [facility] CO2 29 22 - 32 mmol/L [facility] Anion gap 14 2 - 15 mmol/L [facility] BUN 58(H) 6 - 25 mg/dL [facility] Creatinine 2.53(H) 0.60 - 1.10 mg/dL [facility] Glucose 207(H) 70 - 199 mg/dL [facility] Comment: Interpretive Data Fasting glucose >/= [...] 2022. Calcium 10.6(H) 8.5 - 10.3 mg/dL [facility] Bilirubin, total 2.9(H) 0.1 - 1.2 mg/dL [facility] Protein, pl 7.5 6.5 - 8.5 g/dL [facility] Albumin 4.8 3.5 - 5.0 g/dL [facility] Alk phos 81 40 - 130 Units/L [facility] ALT 20 7 - 45 Units/L [facility] AST 32 10 - 45 Units/L [facility] Blood 09/28/2024 9:17 PM SLIP INJECTOR AND APPLICATOR 09/28/2024 10:40 PM SLIP INJECTOR AND APPLICATOR us Najma Pires MD LAB BLOOD ORDERABLES Final Result Performing Organization Address [facility] Co de Phone Number [facility] [place] [address] * (ABNORMAL) POCT glucose (09/28/2024 7:57 PM SLIP INJECTOR AND APPLICATOR) Glucose, POC 203(H) 70 - 199 mg/dL Comment:Glu2: RN/MD Notified Glucose comment 1 Glu2: RN/MD Notified [facility] Blood 09/28/2024 7:57 PM SLIP INJECTOR AND APPLICATOR 09/28/2024 7:57 PM SLIP INJECTOR AND APPLICATOR us Molina Dsouza MD LAB POCT ORDERABLE S - DEVICE Final Result Performing Organization Address [facility] [place] [address] * (ABNORMAL) POCT glucose (09/28/2024 4:31 PM SLIP INJECTOR AND APPLICATOR) Glucose, POC 218(H) 70 - 199 mg/dL Blood 09/28/2024 4:31 PM SLIP INJECTOR AND APPLICATOR 09/28/2024 4:31 PM SLIP INJECTOR AND APPLICATOR us Stuart Flores MD LAB POCT ORDERABLES - DEVICE Fin al Result Performing Organization Address [facility] [place] [address] * (ABNORMAL) POCT glucose (09/28/2024 11:23 AM SLIP INJECTOR AND APPLICATOR) Glucose, POC 244(H) 70 - 199 mg/dL Blood 09/28/2024 11:2 3 AM SLIP INJECTOR AND APPLICATOR 09/28/2024 11:23 AM SLIP INJECTOR AND APPLICATOR Result Anitha Flores MD LAB POCT ORDERABLES - DEVICE Fin al Result Performing Organization Address [facility] de Phone Number [facility] [employer] [address] * (ABNORMAL) POCT glucose (09/28/2024 8:01 AM SLIP INJECTOR AND APPLICATOR) Glucose, POC 271(H) 70 - 199 mg/dL Blood 09/28/2024 8:01 AM SLIP INJECTOR AND APPLICATOR 09/28/2024 8:01 AM SLIP INJECTOR AND APPLICATOR us Stuart Flores MD LAB POCT ORDERABLES - DEVICE Fin al Result Performing Organization Address [facility] de Phone Number [facility] Department of [employer] [place] [address] * (ABNORMAL) POCT glucose (09/28/2024 4:52 AM SLIP INJECTOR AND APPLICATOR) Glucose, POC 227(H) 70 - 199 mg/dL Blood 09/28/2024 4:52 AM SLIP INJECTOR AND APPLICATOR 09/28/2024 4:52 AM SLIP INJECTOR AND APPLICATOR us Stuart Flores MD LAB POCT ORDERABLES - DEVICE Fin al Result Performing Organization Address [facility] de Phone Number [facility] [place] [address] * (ABNORMAL) POCT glucose (09/28/2024 12:29 AM SLIP INJECTOR AND APPLICATOR) Glucose, POC 232(H) 70 - 199 mg/dL Blood 09/28/2024 12:2 9 AM SLIP INJECTOR AND APPLICATOR 09/28/2024 12:29 AM SLIP INJECTOR AND APPLICATOR Result Anitha Zendejason MD LAB POCT ORDERABLES - DEVICE Fin al Result Performing Organization Address [facility] Co de Phone Number [facility] [place] [address] * (ABNORMAL) eGFR (09/28/2024 12:06 AM SLIP INJECTOR AND APPLICATOR) eGFR 15(L) >=60 mL/min/1. 73 m2 Comment: [...] reviewed 2021. Blood 09/28/2024 12:0 6 AM SLIP INJECTOR AND APPLICATOR 09/28/2024 12:22 AM SLIP INJECTOR AND APPLICATOR Najma Pires MD LAB BLOOD ORDERABLES Final Result Performing Organization Address City/[facility]/ZIP Co de Phone Number [facility] [place] [address] * (ABNORMAL) Differential, auto (09/28/2024 12:06 AM SLIP INJECTOR AND APPLICATOR) Neutrophil abs 3.3 1.5 - 6.5 K/cumm Imm gran abs 0.0 0.0 - 0.1 K/cumm [facility] Lymphocyte abs 1.2 0.8 - 3.3 K/cumm [facility] Monocyte abs 1.0(H) 0.2 - 0.8 K/cumm [facility] Eosinophil abs 0.7(H) 0.0 - 0.5 K/cumm [facility] Basophil abs 0.1 0.0 - 0.1 K/cumm [facility] Neutrophil pct 52.8 % [facility] Comment: Interpretive Data Percent cell count reference ranges are not reported, since discordance with absolute values may lead to misinterpretation of CBC data. Current Interpretive Data was last revised on 2017. Imm gran pct 0.5 % [facility] Comment: Interpretive Data Percent cell count reference ranges are not reported, since discordance with absolute values may lead to misinterpretation of CBC data. Current Interpretive Data was last revised on 2017. Lymphocyte pct 19.0 % [facility] Comment: Interpretive Data Percent cell count reference ranges are not reported, since discordance with absolute values may lead to misinterpretation of CBC data. Current Interpretive Data was last revised on 2017. Monocyte pct 15.7 % [facility] Comment: Interpretive Data Percent cell count reference ranges are not reported, since discordance with absolute values may lead to misinterpretation of CBC data. Current Interpretive Data was last revised on 2017. Eosinophil pct 11.2 % [facility] Comment: Interpretive Data Percent cell count reference ranges are not reported, since discordance with absolute values may lead to misinterpretation of CBC data. Current Interpretive Data was last revised on 2017. Basophil pct 0.8 % [facility] Comment: Interpretive Data Percent cell count reference ranges are not reported, since discordance with absolute values may lead to misinterpretation of CBC data. Current Interpretive Data was last revised on 2017. Blood 09/28/2024 12:0 6 AM SLIP INJECTOR AND APPLICATOR 09/28/2024 12:24 AM SLIP INJECTOR AND APPLICATOR us Najma Pires MD LAB BLOOD ORDERABLES Final Result [facility] [place] [address] * (ABNORMAL) CBC with auto differential (09/28/2024 12:06 AM SLIP INJECTOR AND APPLICATOR) Pathologist [facility] WBC 6.2 3.8 - 9.9 K/cumm Hgb 11.4(L) 11.9 - 15.5 g/dL [facility] Hct 33.7(L) 35.6 - 45.5 % [facility] Plt 64(L) 150 - 400 K/cumm [facility] MPV 11.8 9.1 - 12.3 fL [facility] RBC 3.54(L) 3.90 - 5.20 M/cumm [facility] MCV 95.2 81.3 - 96.4 fL [facility] MCH 32.2 27.1 - 33.3 pg [facility] MCHC 33.8 32.3 - 35.7 g/dL [facility] RDW CV 14.6 11.1 - 14.9 % [facility] RDW SD 50.9(H) 35.7 - 48.1 fL [facility] NRBC abs 0.00 0.00 - 0.01 K/cumm [facility] Blood 09/28/2024 12:0 6 AM SLIP INJECTOR AND APPLICATOR 09/28/2024 12:24 AM SLIP INJECTOR AND APPLICATOR us Najma Pires MD LAB BLOOD ORDERABLES Final Result [facility] Department [place] [address] * (ABNORMAL) Protime-INR (09/28/2024 12:06 AM SLIP INJECTOR AND APPLICATOR) Pathologist [facility] PT 16.2(H) 9.7 - 13.0 sec INR 1.49(H) 0.90 - 1.20 [facility] Comment: Interpretive data Oral anticoagulant therapeutic ranges: Venous thromboembolism prophylaxis or treatment: 2.0-3.0 CARDIOLOGY Standard range: 2.0-3.0 High-intensity range: 2.5-3.5 Refer to indication-specific guidelines for appropriate target ranges for prosthetic heart valve replacement. Current interpretive data was last revised on 2019. Blood 09/28/2024 12:0 6 AM SLIP INJECTOR AND APPLICATOR 09/28/2024 12:35 AM SLIP INJECTOR AND APPLICATOR us Stuart Flores MD LAB BLOOD ORDERABLES Final Resul t Performing Organization Address [facility] Co de Phone Number [facility] [place] [address] * Phosphorus (09/28/2024 12:06 AM SLIP INJECTOR AND APPLICATOR) Phosphorus, pl 2.5 2.3 - 4.5 mg/dL Blood 09/28/2024 12:0 6 AM SLIP INJECTOR AND APPLICATOR 09/28/2024 12:22 AM SLIP INJECTOR AND APPLICATOR us Stuart Flores MD LAB BLOOD ORDERABLES Final Resul t Performing Organization Address [facility] de Phone Number [facility] [place] [address] * (ABNORMAL) Magnesium (09/28/2024 12:06 AM SLIP INJECTOR AND APPLICATOR) Pathologist [facility] Magnesium 2.9(H) 1.4 - 2.5 mg/dL Blood 09/28/2024 12:0 6 AM SLIP INJECTOR AND APPLICATOR 09/28/2024 12:22 AM SLIP INJECTOR AND APPLICATOR us Stuart Flores MD LAB BLOOD ORDERABLES Final Resul t Performing Organization Address [facility] Co de Phone Number [facility] [place] [address] * (ABNORMAL) Comprehensive metabolic panel (09/28/2024 12:06 AM SLIP INJECTOR AND APPLICATOR) Sodium 143 135 - 145 mmol/L Potassium, pl 3.5 3.3 - 4.9 mmol/L [facility] Chloride 101 97 - 110 mmol/L [facility] CO2 27 22 - 32 mmol/L [facility] Anion gap 15 2 - 15 mmol/L [facility] BUN 74(H) 6 - 25 mg/dL [facility] Creatinine 3.29(H) 0.60 - 1.10 mg/dL [facility] Glucose 244(H) 70 - 199 mg/dL [facility] Comment: Interpretive Data Fasting glucose >/= [...] 2022. Calcium 10.5(H) 8.5 - 10.3 mg/dL [facility] Bilirubin, total 2.6(H) 0.1 - 1.2 mg/dL [facility] Protein, pl 6.9 6.5 - 8.5 g/dL [facility] Albumin 4.4 3.5 - 5.0 g/dL [facility] Alk phos 80 40 - 130 Units/L [facility] ALT 18 7 - 45 Units/L [facility] AST 29 10 - 45 Units/L [facility] Blood 09/28/2024 12:0 6 AM SLIP INJECTOR AND APPLICATOR 09/28/2024 12:22 AM SLIP INJECTOR AND APPLICATOR us Najma Pires MD LAB BLOOD ORDERABLES Final Result Performing Organization Address [facility]/ZIP Co de Phone Number [facility] [place] [address] * (ABNORMAL) POCT glucose (09/27/2024 11:55 PM SLIP INJECTOR AND APPLICATOR) [facility] Glucose, POC 224(H) 70 - 199 mg/dL Blood 09/27/2024 11:5 5 PM SLIP INJECTOR AND APPLICATOR 09/27/2024 11:55 PM SLIP INJECTOR AND APPLICATOR Stuart Flores MD LAB POCT ORDERABLES - DEVICE Fin al Result Performing Organization Address [facility] [place] [address] * POCT glucose (09/27/2024 8:03 PM SLIP INJECTOR AND APPLICATOR) Glucose, POC 197 70 - 199 mg/dL Blood 09/27/2024 8:03 PM SLIP INJECTOR AND APPLICATOR 09/27/2024 8:03 PM SLIP INJECTOR AND APPLICATOR us Stuart Flores MD LAB POCT ORDERABLES - DEVICE Fin al Result Performing Organization Address [facility] [place] [address] * (ABNORMAL) POCT glucose (09/27/2024 4:26 PM SLIP INJECTOR AND APPLICATOR) Glucose, POC 203(H) 70 - 199 mg/dL Blood 09/27/2024 4:26 PM SLIP INJECTOR AND APPLICATOR 09/27/2024 4:26 PM SLIP INJECTOR AND APPLICATOR us Stuart Flores MD LAB POCT ORDERABLES - DEVICE Fin al Result Performing Organization Address City/[facility] [place] [address] * (ABNORMAL) POCT glucose (09/27/2024 11:49 AM SLIP INJECTOR AND APPLICATOR) Glucose, POC 241(H) 70 - 199 mg/dL Blood 09/27/2024 11:4 9 AM SLIP INJECTOR AND APPLICATOR 09/27/2024 11:49 AM SLIP INJECTOR AND APPLICATOR us Stuart Flores MD LAB POCT ORDERABLES - DEVICE Fin al Result Performing Organization Address City/[facility] [place] [address] * POCT glucose (09/27/2024 8:05 AM SLIP INJECTOR AND APPLICATOR) Glucose, POC 199 70 - 199 mg/dL Blood 09/27/2024 8:05 AM SLIP INJECTOR AND APPLICATOR 09/27/2024 8:05 AM SLIP INJECTOR AND APPLICATOR us Stuart Flores MD LAB POCT ORDERABLES - DEVICE Fin al Result Performing Organization Address [facility] Phone Number [facility] [place] [address] * (ABNORMAL) POCT glucose (09/27/2024 4:24 AM SLIP INJECTOR AND APPLICATOR) Glucose, POC 215(H) 70 - 199 mg/dL Blood 09/27/2024 4:24 AM SLIP INJECTOR AND APPLICATOR 09/27/2024 4:24 AM SLIP INJECTOR AND APPLICATOR us Stuart Flores MD LAB POCT ORDERABLES - DEVICE Fin al Result Performing Organization Address [facility] Phone Number [facility] [place] [address] * POCT glucose (09/26/2024 11:20 PM SLIP INJECTOR AND APPLICATOR) [facility] Glucose, POC 168 70 - 199 mg/dL Blood 09/26/2024 11:2 0 PM SLIP INJECTOR AND APPLICATOR 09/26/2024 11:20 PM SLIP INJECTOR AND APPLICATOR us Stuart Flores MD LAB POCT ORDERABLES - DEVICE Fin al Result Performing Organization Address [facility] Phone Number [facility] [place] [employer] [address] * (ABNORMAL) eGFR (09/26/2024 9:23 PM SLIP INJECTOR AND APPLICATOR) [facility] eGFR 10(L) >=60 mL/min/1. 73 m2 Comment: [...] last reviewed 2021. Blood 09/26/2024 9:23 PM SLIP INJECTOR AND APPLICATOR 09/26/2024 10:24 PM SLIP INJECTOR AND APPLICATOR us Najma Pires MD LAB BLOOD ORDERABLES Final Result [facility] [place] [address] * (ABNORMAL) Differential, auto (09/26/2024 9:23 PM SLIP INJECTOR AND APPLICATOR) Neutrophil abs 3.7 1.5 - 6.5 K/cumm Imm gran abs 0.0 0.0 - 0.1 K/cumm [facility] Lymphocyte abs 1.6 0.8 - 3.3 K/cumm [facility] Monocyte abs 1.0(H) 0.2 - 0.8 K/cumm [facility] Eosinophil abs 0.7(H) 0.0 - 0.5 K/cumm [facility] Basophil abs 0.0 0.0 - 0.1 K/cumm [facility] Neutrophil pct 53.1 % [facility] Comment: Interpretive Data Percent cell count reference ranges are not reported, since discordance with absolute values may lead to misinterpretation of CBC data. Current Interpretive Data was last revised on 2017. Imm gran pct 0.4 % [facility] Comment: Interpretive Data Percent cell count reference ranges are not reported, since discordance with absolute values may lead to misinterpretation of CBC data. Current Interpretive Data was last revised on 2017. Lymphocyte pct 23.0 % [facility] Comment: Interpretive Data Percent cell count reference ranges are not reported, since discordance with absolute values may lead to misinterpretation of CBC data. Current Interpretive Data was last revised on 2017. Monocyte pct 13.5 % [facility] Comment: Interpretive Data Percent cell count reference ranges are not reported, since discordance with absolute values may lead to misinterpretation of CBC data. Current Interpretive Data was last revised on 2017. Eosinophil pct 9.4 % [facility] Comment: Interpretive Data Percent cell count reference ranges are not reported, since discordance with absolute values may lead to misinterpretation of CBC data. Current Interpretive Data was last revised on 2017. Basophil pct 0.6 % [facility] Comment: Interpretive Data Percent cell count reference ranges are not reported, since discordance with absolute values may lead to misinterpretation of CBC data. Current Interpretive Data was last revised on 2017. Blood 09/26/2024 9:23 PM SLIP INJECTOR AND APPLICATOR 09/26/2024 10:25 PM SLIP INJECTOR AND APPLICATOR us Najma Pires MD LAB BLOOD ORDERABLES Final Result [facility] Department [place] [address] * (ABNORMAL) CBC with auto differential (09/26/2024 9:23 PM SLIP INJECTOR AND APPLICATOR) WBC 7.0 3.8 - 9.9 K/cumm Hgb 11.1(L) 11.9 - 15.5 g/dL [facility] Hct 31.6(L) 35.6 - 45.5 % [facility] Plt 66(L) 150 - 400 K/cumm [facility] MPV 12.7(H) 9.1 - 12.3 fL [facility] RBC 3.44(L) 3.90 - 5.20 M/cumm [facility] MCV 91.9 81.3 - 96.4 fL [facility] MCH 32.3 27.1 - 33.3 pg [facility] MCHC 35.1 32.3 - 35.7 g/dL [facility] RDW CV 14.6 11.1 - 14.9 % [facility] RDW SD 49.0(H) 35.7 - 48.1 fL [facility] NRBC abs 0.00 0.00 - 0.01 K/cumm [facility] Blood 09/26/2024 9:23 PM SLIP INJECTOR AND APPLICATOR 09/26/2024 10:25 PM SLIP INJECTOR AND APPLICATOR Najma Pires MD LAB BLOOD ORDERABLES Final Result Performing Organization Address [facility] Co de Phone Number [facility] [employer] [address] * (ABNORMAL) Protime-INR (09/26/2024 9:23 PM SLIP INJECTOR AND APPLICATOR) PT 15.3(H) 9.7 - 13.0 sec INR 1.41(H) 0.90 - 1.20 [facility] Comment: Interpretive data Oral anticoagulant therapeutic ranges: Venous thromboembolism prophylaxis or treatment: 2.0-3.0 CARDIOLOGY Standard range: 2.0-3.0 High-intensity range: 2.5-3.5 Refer to indication-specific guidelines for appropriate target ranges for prosthetic heart valve replacement. Current interpretive data was last revised on 2019. Blood 09/26/2024 9:23 PM SLIP INJECTOR AND APPLICATOR 09/26/2024 10:19 PM SLIP INJECTOR AND APPLICATOR Stuart Flores MD LAB BLOOD ORDERABLES Final Resul t Performing Organization Address [facility] Co de Phone Number [facility] [place] [employer] [address] * Phosphorus (09/26/2024 9:23 PM SLIP INJECTOR AND APPLICATOR) Phosphorus, pl 3.2 2.3 - 4.5 mg/dL Comment:Repeated and Verifie d Blood 09/26/2024 9:23 PM SLIP INJECTOR AND APPLICATOR 09/26/2024 10:24 PM SLIP INJECTOR AND APPLICATOR us Stuart Flores MD LAB BLOOD ORDERABLES Final Resul t Performing Organization Address City/[facility]/ZIP Co de Phone Number [facility] [place] [address] * (ABNORMAL) Magnesium (09/26/2024 9:23 PM SLIP INJECTOR AND APPLICATOR) Magnesium 3.0(H) 1.4 - 2.5 mg/dL Blood 09/26/2024 9:23 PM SLIP INJECTOR AND APPLICATOR 09/26/2024 10:24 PM SLIP INJECTOR AND APPLICATOR us Stuart Flores MD LAB BLOOD ORDERABLES Final Resul t Performing Organization Address [facility] Co de Phone Number [facility] [place] [address] * (ABNORMAL) Comprehensive metabolic panel (09/26/2024 9:23 PM SLIP INJECTOR AND APPLICATOR) Pathologist [facility] Sodium 143 135 - 145 mmol/L Potassium, pl 3.3 3.3 - 4.9 mmol/L [facility] Chloride 100 97 - 110 mmol/L [facility] CO2 26 22 - 32 mmol/L [facility] Anion gap 17(H) 2 - 15 mmol/L [facility] BUN 93(H) 6 - 25 mg/dL [facility] Creatinine 4.70(H) 0.60 - 1.10 mg/dL [facility] Glucose 196 70 - 199 mg/dL [facility] Comment: Interpretive Data Fasting glucose >/= [...] 2022. Calcium 10.1 8.5 - 10.3 mg/dL [facility] Bilirubin, total 2.1(H) 0.1 - 1.2 mg/dL [facility] Protein, pl 6.6 6.5 - 8.5 g/dL [facility] Albumin 4.3 3.5 - 5.0 g/dL [facility] Alk phos 85 40 - 130 Units/L [facility] ALT 13 7 - 45 Units/L [facility] AST 30 10 - 45 Units/L [facility] Blood 09/26/2024 9:23 PM SLIP INJECTOR AND APPLICATOR 09/26/2024 10:24 PM SLIP INJECTOR AND APPLICATOR Najma Pires MD LAB BLOOD ORDERABLES Final Result Performing Organization Address [facility] Phone Number [facility] [place] [address] * (ABNORMAL) POCT glucose (09/26/2024 7:53 PM SLIP INJECTOR AND APPLICATOR) Glucose, POC 204(H) 70 - 199 mg/dL Blood 09/26/2024 7:53 PM SLIP INJECTOR AND APPLICATOR 09/26/2024 7:53 PM SLIP INJECTOR AND APPLICATOR us Stuart Flores MD LAB POCT ORDERABLES - DEVICE Fin al Result Performing Organization Address [facility] de Phone Number [facility] [place] [address] * (ABNORMAL) POCT glucose (09/26/2024 4:37 PM SLIP INJECTOR AND APPLICATOR) Glucose, POC 256(H) 70 - 199 mg/dL Blood 09/26/2024 4:37 PM SLIP INJECTOR AND APPLICATOR 09/26/2024 4:37 PM SLIP INJECTOR AND APPLICATOR us Stuart Flores MD LAB POCT ORDERABLES - DEVICE Fin al Result Performing Organization Address [facility] de Phone Number [facility] Department [place] [address] * (ABNORMAL) eGFR (09/26/2024 3:40 PM SLIP INJECTOR AND APPLICATOR) Pathologist [facility] eGFR 9(L) >=60 mL/min/1. 73 m2 Comment: [...] last reviewed 2021. Blood 09/26/2024 3:40 PM SLIP INJECTOR AND APPLICATOR 09/26/2024 5:50 PM SLIP INJECTOR AND APPLICATOR us Stuart Flores MD LAB BLOOD ORDERABLES Final Resul t [facility] [place] [address] * (ABNORMAL) Basic metabolic panel (09/26/2024 3:40 PM SLIP INJECTOR AND APPLICATOR) Pathologist [facility] Sodium 139 135 - 145 mmol/L Potassium, pl 3.4 3.3 - 4.9 mmol/L [facility] Chloride 98 97 - 110 mmol/L [facility] CO2 25 22 - 32 mmol/L [facility] Anion gap 16(H) 2 - 15 mmol/L [facility] BUN 87(H) 6 - 25 mg/dL [facility] Creatinine 4.94(H) 0.60 - 1.10 mg/dL [facility] Glucose 273(H) 70 - 199 mg/dL [facility] Comment: Interpretive Data Fasting glucose >/= [...] 2022. Calcium 10.1 8.5 - 10.3 mg/dL [facility] Blood 09/26/2024 3:40 PM SLIP INJECTOR AND APPLICATOR 09/26/2024 5:50 PM SLIP INJECTOR AND APPLICATOR us Stuart Flores MD LAB BLOOD ORDERABLES Final Resul t Performing Organization Address [facility] Co de Phone Number [facility] [place] [address] * (ABNORMAL) POCT glucose (09/26/2024 11:16 AM SLIP INJECTOR AND APPLICATOR) Glucose, POC 290(H) 70 - 199 mg/dL Blood 09/26/2024 11:1 6 AM SLIP INJECTOR AND APPLICATOR 09/26/2024 11:16 AM SLIP INJECTOR AND APPLICATOR us Stuart Flores MD LAB POCT ORDERABLES - DEVICE Fin al Result Performing Organization Address [facility]/ZIP Co de Phone Number [facility] [place] [address] * (ABNORMAL) POCT glucose (09/26/2024 9:40 AM SLIP INJECTOR AND APPLICATOR) Glucose, POC 233(H) 70 - 199 mg/dL Blood 09/26/2024 9:40 AM SLIP INJECTOR AND APPLICATOR 09/26/2024 9:40 AM SLIP INJECTOR AND APPLICATOR us Stuart Flores MD LAB POCT ORDERABLES - DEVICE Fin al Result Performing Organization Address [facility] [place] [address] * (ABNORMAL) Lactate (09/26/2024 8:16 AM SLIP INJECTOR AND APPLICATOR) Lactate 3.4(H) 0.7 - 2.0 mmol/L Blood 09/26/2024 8:16 AM SLIP INJECTOR AND APPLICATOR 09/26/2024 8:25 AM SLIP INJECTOR AND APPLICATOR us Stuart Flores MD LAB BLOOD ORDERABLES Final Resul t Performing Organization Address [facility] Phone Number [facility] [place] [address] * (ABNORMAL) POCT glucose (09/26/2024 7:45 AM SLIP INJECTOR AND APPLICATOR) Glucose, POC 305(H) 70 - 199 mg/dL Blood 09/26/2024 7:45 AM SLIP INJECTOR AND APPLICATOR 09/26/2024 7:45 AM SLIP INJECTOR AND APPLICATOR Result Anitha Flores MD LAB POCT ORDERABLES - DEVICE Fin al Result Performing Organization Address [facility] de Phone Number [facility] [place] [address] * (ABNORMAL) POCT glucose (09/26/2024 4:26 AM SLIP INJECTOR AND APPLICATOR) Glucose, POC 283(H) 70 - 199 mg/dL Blood 09/26/2024 4:26 AM SLIP INJECTOR AND APPLICATOR 09/26/2024 4:26 AM SLIP INJECTOR AND APPLICATOR Result Anitah Flores MD LAB POCT ORDERABLES - DEVICE Fin al Result Performing Organization Address [facility] Co de Phone Number [facility] [place] [address] * CT Abdomen Pelvis WO Contrast (09/26/2024 3:17 AM SLIP INJECTOR AND APPLICATOR) Anatomical Region Laterality Modality Body N/A Computed Tomogra phy 09/26/2024 3:35 AM SLIP INJECTOR AND APPLICATOR Impressions 09/26/2024 8:12 AM SLIP INJECTOR AND APPLICATOR 1. No acute intra-abdominal findings. 2. Cirrhotic [...] Juan Randall MD Narrative 09/26/2024 8:12 AM SLIP INJECTOR AND APPLICATOR EXAMINATION: Computed tomography of the abdomen and [...] Result * (ABNORMAL) Lactate (09/26/2024 12:44 AM SLIP INJECTOR AND APPLICATOR) Lactate 3.5(H) 0.7 - 2.0 mmol/L Blood 09/26/2024 12:4 4 AM SLIP INJECTOR AND APPLICATOR 09/26/2024 1:06 AM SLIP INJECTOR AND APPLICATOR us Stuart Flores MD LAB BLOOD ORDERABLES Final Resul t [facility] [facility] [place] [address] * (ABNORMAL) POCT glucose (09/26/2024 12:08 AM SLIP INJECTOR AND APPLICATOR) Glucose, POC 302(H) 70 - 199 mg/dL Blood 09/26/2024 12:0 8 AM SLIP INJECTOR AND APPLICATOR 09/26/2024 12:08 AM SLIP INJECTOR AND APPLICATOR us Stuart Flores MD LAB POCT ORDERABLES - DEVICE Fin al Result Performing Organization Address City/[facility]/ZIP Co [place] [address] * (ABNORMAL) eGFR (09/25/2024 10:48 PM SLIP INJECTOR AND APPLICATOR) Pathologist [facility] eGFR 9(L) >=60 mL/min/1. 73 m2 Comment: [...] reviewed 2021. Blood 09/25/2024 10:4 8 PM SLIP INJECTOR AND APPLICATOR 09/26/2024 12:38 AM SLIP INJECTOR AND APPLICATOR us Najma Pires MD LAB BLOOD ORDERABLES Final Result CHARISSA [facility] [place] [address] * (ABNORMAL) Differential, auto (09/25/2024 10:48 PM SLIP INJECTOR AND APPLICATOR) Neutrophil abs 5.9 1.5 - 6.5 K/cumm Imm gran abs 0.0 0.0 - 0.1 K/cumm [facility] Lymphocyte abs 1.8 0.8 - 3.3 K/cumm [facility] Monocyte abs 1.2(H) 0.2 - 0.8 K/cumm [facility] Eosinophil abs 0.5 0.0 - 0.5 K/cumm [facility] Basophil abs 0.1 0.0 - 0.1 K/cumm [facility] Neutrophil pct 62.4 % [facility] Comment: Interpretive Data Percent cell count reference ranges are not reported, since discordance with absolute values may lead to misinterpretation of CBC data. Current Interpretive Data was last revised on 2017. Imm gran pct 0.2 % [facility]ERN[facility] Comment: Interpretive Data Percent cell count reference ranges are not reported, since discordance with absolute values may lead to misinterpretation of CBC data. Current Interpretive Data was last revised on 2017. Lymphocyte pct 19.1 % [facility] Comment: Interpretive Data Percent cell count reference ranges are not reported, since discordance with absolute values may lead to misinterpretation of CBC data. Current Interpretive Data was last revised on 2017. Monocyte pct 12.3 % [facility] Comment: Interpretive Data Percent cell count reference ranges are not reported, since discordance with absolute values may lead to misinterpretation of CBC data. Current Interpretive Data was last revised on 2017. Eosinophil pct 5.4 % [facility] Comment: Interpretive Data Percent cell count reference ranges are not reported, since discordance with absolute values may lead to misinterpretation of CBC data. Current Interpretive Data was last revised on 2017. Basophil pct 0.6 % [facility] Comment: Interpretive Data Percent cell count reference ranges are not reported, since discordance with absolute values may lead to misinterpretation of CBC data. Current Interpretive Data was last revised on 2017. Blood 09/25/2024 10:4 8 PM SLIP INJECTOR AND APPLICATOR 09/26/2024 12:37 AM SLIP INJECTOR AND APPLICATOR Najma Pires MD LAB BLOOD ORDERABLES Final Result Performing Organization Address City/[facility]/ZIP Co de Phone Number [facility] [place] [address] * (ABNORMAL) CBC with auto differential (09/25/2024 10:48 PM SLIP INJECTOR AND APPLICATOR) Pathologist [facility] WBC 9.5 3.8 - 9.9 K/cumm Hgb 12.1 11.9 - 15.5 g/dL [facility] Hct 34.4(L) 35.6 - 45.5 % [facility] Plt 81(L) 150 - 400 K/cumm [facility] MPV 12.5(H) 9.1 - 12.3 fL [facility] RBC 3.85(L) 3.90 - 5.20 M/cumm [facility] MCV 89.4 81.3 - 96.4 fL [facility] MCH 31.4 27.1 - 33.3 pg [facility] MCHC 35.2 32.3 - 35.7 g/dL [facility] RDW CV 14.6 11.1 - 14.9 % [facility] RDW SD 46.7 35.7 - 48.1 fL [facility] NRBC abs 0.00 0.00 - 0.01 K/cumm [facility] Blood 09/25/2024 10:4 8 PM SLIP INJECTOR AND APPLICATOR 09/26/2024 12:37 AM SLIP INJECTOR AND APPLICATOR us Najma Pires MD LAB BLOOD ORDERABLES Final Result [facility] [place] [address] * (ABNORMAL) Protime-INR (09/25/2024 10:48 PM SLIP INJECTOR AND APPLICATOR) PT 15.5(H) 9.7 - 13.0 sec INR 1.42(H) 0.90 - 1.20 [facility] Comment: Interpretive data Oral anticoagulant therapeutic ranges: Venous thromboembolism prophylaxis or treatment: 2.0-3.0 CARDIOLOGY Standard range: 2.0-3.0 High-intensity range: 2.5-3.5 Refer to indication-specific guidelines for appropriate target ranges for prosthetic heart valve replacement. Current interpretive data was last revised on 2019. Blood 09/25/2024 10:4 8 PM SLIP INJECTOR AND APPLICATOR 09/26/2024 12:41 AM SLIP INJECTOR AND APPLICATOR us Stuart Flores MD LAB BLOOD ORDERABLES Final Resul t [facility] [place] [address] * (ABNORMAL) Comprehensive metabolic panel (09/25/2024 10:48 PM SLIP INJECTOR AND APPLICATOR) Sodium 140 135 - 145 mmol/L Potassium, pl 2.8(L) 3.3 - 4.9 mmol/L [facility] Chloride 95(L) 97 - 110 mmol/L [facility] CO2 26 22 - 32 mmol/L [facility] Anion gap 19(H) 2 - 15 mmol/L [facility] BUN 89(H) 6 - 25 mg/dL [facility] Creatinine 5.24(H) 0.60 - 1.10 mg/dL [facility] Glucose 323(H) 70 - 199 mg/dL [facility] Comment: Interpretive Data Fasting glucose >/= [...] 2022. Calcium 10.2 8.5 - 10.3 mg/dL [facility] Bilirubin, total 2.1(H) 0.1 - 1.2 mg/dL [facility] Protein, pl 6.7 6.5 - 8.5 g/dL [facility] Albumin 3.9 3.5 - 5.0 g/dL [facility] Alk phos 97 40 - 130 Units/L [facility] ALT 15 7 - 45 Units/L [facility] AST 34 10 - 45 Units/L [facility] Blood 09/25/2024 10:4 8 PM SLIP INJECTOR AND APPLICATOR 09/26/2024 12:38 AM SLIP INJECTOR AND APPLICATOR Najma Pires MD LAB BLOOD ORDERABLES Final Result Performing Organization Address [facility] Co de Phone Number [facility] [place] [employer] [place] [address] * (ABNORMAL) POCT glucose (09/25/2024 8:27 PM SLIP INJECTOR AND APPLICATOR) Glucose, POC 318(H) 70 - 199 mg/dL Blood 09/25/2024 8:27 PM SLIP INJECTOR AND APPLICATOR 09/25/2024 8:27 PM SLIP INJECTOR AND APPLICATOR Stuart Flores MD LAB POCT ORDERABLES - DEVICE Fin al Result Performing Organization Address [facility] de Phone Number [facility] Department [place] [employer] [place] [address] * (ABNORMAL) POCT glucose (09/25/2024 6:12 PM SLIP INJECTOR AND APPLICATOR) Glucose, POC 288(H) 70 - 199 mg/dL Blood 09/25/2024 6:12 PM SLIP INJECTOR AND APPLICATOR 09/25/2024 6:12 PM SLIP INJECTOR AND APPLICATOR us Stuart Flores MD LAB POCT ORDERABLES - DEVICE Fin al Result Performing Organization Address [facility] Co de Phone Number [facility] [place] [address] * (ABNORMAL) POCT glucose (09/25/2024 4:12 PM SLIP INJECTOR AND APPLICATOR) Pathologist [facility] Glucose, POC 263(H) 70 - 199 mg/dL Blood 09/25/2024 4:12 PM SLIP INJECTOR AND APPLICATOR 09/25/2024 4:12 PM SLIP INJECTOR AND APPLICATOR us Stuart Flores MD LAB POCT ORDERABLES - DEVICE Fin al Result Performing Organization Address [facility] Co de Phone Number [facility] [place] [address] * (ABNORMAL) Lactate (09/25/2024 3:24 PM SLIP INJECTOR AND APPLICATOR) [facility] Lactate 4.9(C) 0.7 - 2.0 mmol/L Blood 09/25/2024 3:24 PM SLIP INJECTOR AND APPLICATOR 09/25/2024 3:54 PM SLIP INJECTOR AND APPLICATOR us Stuart Flores MD LAB BLOOD ORDERABLES Final Resul t Performing Organization Address [facility] de Phone Number [facility] [place] [address] * Critical Result Callback Chemistry (09/25/2024 3:24 PM SLIP INJECTOR AND APPLICATOR) [facility] Date Notified [id number] Time Notified [facility] TestName Lactate CHARISSA [facility] Called/Read Back Javier [facility] Credentials RN CHARISSA DUNNE Called By MARTHA DUNNE Blood 09/25/2024 3:24 PM SLIP INJECTOR AND APPLICATOR 09/25/2024 3:54 PM SLIP INJECTOR AND APPLICATOR us Stuart Flores MD LAB BLOOD ORDERABLES Final Resul t Performing Organization Address [facility] de Phone Number [facility] [place] [address] * Urinalysis reflex to microscopic and culture Urine (09/25/2024 3:24 PM SLIP INJECTOR AND APPLICATOR) Color, ur Yellow Yellow Clarity, ur Clear Clear [facility] Specific gravity, ur 1.017 1.003 - 1.030 [facility] pH, urine 5.5 [facility] Comment: Interpretive Data U rine pH is affected by diet, medications, systemic acid-base disturbances, and renal tubular function. pH may affect urinary stone formation. For example, urine pH below 6.0 may help reduce the tendency for calcium phosphate stones and pH greater than 6.0 may reduce the tendency for uric acid stone formation. Source: [facility] Current Interpretive Data was last revised on 2017 Protein, ur ql Negative Negative [facility] Glucose, ur ql Negative Negative [facility] Ketones, ur Negative Negative [facility] Bilirubin, ur Negative Negative [facility] Blood, ur Negative Negative [facility] Urobilinogen, ur <2.0 <2.0 mg/dL [facility] Nitrite, ur Negative Negative [facility] Leukocyte esterase, ur Negative Negative [facility] UA reflex comment Reflex conditions for microscopic UA and culture not met. [facility] Urine 09/25/2024 3:24 PM SLIP INJECTOR AND APPLICATOR 09/25/2024 3:42 PM SLIP INJECTOR AND APPLICATOR Britany Knight MD LAB MICROBIOLOGY - GENERAL ORD ERABLES Final Result Performing Organization Address City/[facility] Co de Phone Number [facility] [employer] [address] * Sodium, urine, random (09/25/2024 3:24 PM SLIP INJECTOR AND APPLICATOR) Sodium, ur 31 mmol/L Comment: Interpretive Data No reference range established. Current interpretive data was last revised 2018. Urine 09/25/2024 3:24 PM SLIP INJECTOR AND APPLICATOR 09/25/2024 3:54 PM SLIP INJECTOR AND APPLICATOR us Najma Pires MD LAB URINE ORDERABLES Final Result Performing Organization Address City/[facility]/ZIP Co de Phone Number [facility] [place] [employer] [place] [address] * (ABNORMAL) POCT glucose (09/25/2024 2:41 PM SLIP INJECTOR AND APPLICATOR) Pathologist [facility] Glucose, POC 315(H) 70 - 199 mg/dL Blood 09/25/2024 2:41 PM SLIP INJECTOR AND APPLICATOR 09/25/2024 2:41 PM SLIP INJECTOR AND APPLICATOR Stuart Flores MD LAB POCT ORDERABLES - DEVICE Fin al Result Performing Organization Address [facility] Co de Phone Number [facility] [place] [address] * (ABNORMAL) POCT glucose (09/25/2024 12:32 PM SLIP INJECTOR AND APPLICATOR) [facility] Glucose, POC 343(H) 70 - 199 mg/dL Blood 09/25/2024 12:3 2 PM SLIP INJECTOR AND APPLICATOR 09/25/2024 12:32 PM SLIP INJECTOR AND APPLICATOR Result [facility] Stuart Flores MD LAB POCT ORDERABLES - DEVICE Fin al Result Performing Organization Address [facility] de Phone Number [facility] [place] [address] * (ABNORMAL) Troponin I high-sensitivity 4-hour (09/25/2024 11:38 AM SLIP INJECTOR AND APPLICATOR) Pathologist [facility] Trop I hs 80(H) <=17 ng/L Comment: Interpretive Data For further hscTnI resources including the diagnostic algorithm and an aid in interpretation, copy and paste this link: https://bjhlab.testcatalog.org/show/hsTrop-1 Current Interpretive Data last revised 2020. Trop I hs delta 6 ng/L [facility] Trop I hs interp Equivocal [facility] Blood 09/25/2024 11:3 8 AM SLIP INJECTOR AND APPLICATOR 09/25/2024 12:27 PM SLIP INJECTOR AND APPLICATOR us Stuart Flores MD LAB BLOOD ORDERABLES Final Resul t [facility] Department [place] [address] * (ABNORMAL) POCT glucose (09/25/2024 11:14 AM SLIP INJECTOR AND APPLICATOR) Glucose, POC 312(H) 70 - 199 mg/dL Blood 09/25/2024 11:1 4 AM SLIP INJECTOR AND APPLICATOR 09/25/2024 11:14 AM SLIP INJECTOR AND APPLICATOR us Stuart Flores MD LAB POCT ORDERABLES - DEVICE Fin al Result Performing Organization Address [facility] Co de Phone Number [facility] [place] [address] * (ABNORMAL) Troponin I high-sensitivity 2-hour (09/25/2024 9:51 AM SLIP INJECTOR AND APPLICATOR) Pathologist [facility] Trop I hs 62(H) <=17 ng/L Comment: Previous critical value noted within 48 hours ago. Interpretive Data For further hscTnI resources including the diagnostic algorithm and an aid in interpretation, copy and paste this link: https://bjhlab.testcatalog.org/show/hsTrop-1 Current Interpretive Data last revised 2020. Trop I hs delta -12(C) ng/L [facility] Trop I hs interp Significa nt(C) [facility] Blood 09/25/2024 9:51 AM SLIP INJECTOR AND APPLICATOR 09/25/2024 10:22 AM SLIP INJECTOR AND APPLICATOR us Stuart Flores MD LAB BLOOD ORDERABLES Final Resul t Performing Organization Address [facility]/ZIP Co de Phone Number [facility] [place] [address] * Critical result callback Cardio chemistry (09/25/2024 9:51 AM SLIP INJECTOR AND APPLICATOR) Date Notified [id number] Time Notified 1105 [facility] Test name Trop I hs 2hr [facility] Called/Read Back Javier [facility]INGTON [facility] Credentials TYRA CARRINGTON [facility] Called By PD CARRINGTON [facility] Blood 09/25/2024 9:51 AM SLIP INJECTOR AND APPLICATOR 09/25/2024 10:22 AM SLIP INJECTOR AND APPLICATOR us Stuart Flores MD LAB BLOOD ORDERABLES Final Resul t Performing Organization Address [facility] de Phone Number [facility] [place] [address] * (ABNORMAL) POCT glucose (09/25/2024 9:19 AM SLIP INJECTOR AND APPLICATOR) Glucose, POC 260(H) 70 - 199 mg/dL Blood 09/25/2024 9:19 AM SLIP INJECTOR AND APPLICATOR 09/25/2024 9:19 AM SLIP INJECTOR AND APPLICATOR Result [facility] us Stuart Flores MD LAB POCT ORDERABLES - DEVICE Fin al Result Performing Organization Address [facility] de Phone Number [facility] [place] [address] * (ABNORMAL) Troponin I high-sensitivity series (baseline, 2hr, 4hr, 6hr) (09/25/2024 7:44 AM SLIP INJECTOR AND APPLICATOR) Pathologist [facility] Trop I hs 74(H) <=17 ng/L Comment: Interpretive Data For further hscTnI resources including the diagnostic algorithm and an aid in interpretation, copy and paste this link: https://bjhlab.testcatalog.org/show/hsTrop-1 Current Interpretive Data last revised 2020. Blood 09/25/2024 7:44 AM SLIP INJECTOR AND APPLICATOR 09/25/2024 7:57 AM SLIP INJECTOR AND APPLICATOR us Stuart Flores MD LAB BLOOD ORDERABLES Final Resul t Performing Organization Address [facility] de Phone Number [facility] [place] [address] * (ABNORMAL) Lactate (09/25/2024 7:44 AM SLIP INJECTOR AND APPLICATOR) Lactate 3.6(H) 0.7 - 2.0 mmol/L Blood 09/25/2024 7:44 AM SLIP INJECTOR AND APPLICATOR 09/25/2024 7:57 AM SLIP INJECTOR AND APPLICATOR us Stuart Flores MD LAB BLOOD ORDERABLES Final Resul t Performing Organization Address [facility] Co de Phone Number [facility] [place] [employer] [place] [address] * (ABNORMAL) POCT glucose (09/25/2024 7:32 AM SLIP INJECTOR AND APPLICATOR) Glucose, POC 311(H) 70 - 199 mg/dL Blood 09/25/2024 7:32 AM SLIP INJECTOR AND APPLICATOR 09/25/2024 7:32 AM SLIP INJECTOR AND APPLICATOR us Stuart Flores MD LAB POCT ORDERABLES - DEVICE Fin al Result Performing Organization Address [facility] de Phone Number [facility] [place] [address] * (ABNORMAL) POCT glucose (09/25/2024 4:12 AM SLIP INJECTOR AND APPLICATOR) Glucose, POC 334(H) 70 - 199 mg/dL Blood 09/25/2024 4:12 AM SLIP INJECTOR AND APPLICATOR 09/25/2024 4:12 AM SLIP INJECTOR AND APPLICATOR us Stuart Flores MD LAB POCT ORDERABLES - DEVICE Fin al Result Performing Organization Address [facility] de Phone Number [facility] [place] [address] * (ABNORMAL) POCT glucose (09/25/2024 2:52 AM SLIP INJECTOR AND APPLICATOR) Glucose, POC 360(H) 70 - 199 mg/dL Blood 09/25/2024 2:52 AM SLIP INJECTOR AND APPLICATOR 09/25/2024 2:52 AM SLIP INJECTOR AND APPLICATOR us Stuart Flores MD LAB POCT ORDERABLES - DEVICE Fin al Result [facility] [place] [address] * XR Abdomen Ap 1 Vw (09/25/2024 1:32 AM SLIP INJECTOR AND APPLICATOR) Anatomical Region Laterality Modality Body, Abdomen N/A Digital Radiogra phy 09/25/2024 8:29 AM SLIP INJECTOR AND APPLICATOR Impressions 09/25/2024 4:40 PM SLIP INJECTOR AND APPLICATOR Gastric tube tip coils over the fundus [...] Nessa Dodson M.D. Narrative 09/25/2024 4:40 PM SLIP INJECTOR AND APPLICATOR EXAMINATION: Abdomen, one view. HISTORY: Intubation of [...] * (ABNORMAL) POCT glucose (09/25/2024 12:11 AM SLIP INJECTOR AND APPLICATOR) Pathologist [facility] Glucose, POC 390(H) 70 - 199 mg/dL Comment:Glu2: RN/MD Notified Glucose comment 1 Glu2: RN/MD Notified [facility] Blood 09/25/2024 12:1 1 AM SLIP INJECTOR AND APPLICATOR 09/25/2024 12:11 AM SLIP INJECTOR AND APPLICATOR Stuart Flores MD LAB POCT ORDERABLES - DEVICE Fin al Result Performing Organization Address [facility] de Phone Number [facility] [place] [address] * (ABNORMAL) Troponin I high-sensitivity 6-hour (09/24/2024 11:56 PM SLIP INJECTOR AND APPLICATOR) Pathologist [facility] Trop I hs 57(H) <=17 ng/L Comment: Interpretive Data For further [facility] resources including the diagnostic algorithm and an aid in interpretation, copy and paste this link: https://bjhlab.testcatalog.org/show/hsTrop-1 Current Interpretive Data last revised 2020. Trop I hs delta See Comment ng/L [facility] Comment:Inappropriate collec tion time to report a delta. Trop I hs pct delta See Comment % [facility] Comment:Inappropriate collec tion time to report a delta. Trop I hs interp See Comment [facility] Comment:Inappropriate collec tion time to report a delta. Blood 09/24/2024 11:5 6 PM SLIP INJECTOR AND APPLICATOR 09/25/2024 12:10 AM SLIP INJECTOR AND APPLICATOR Result [facility] Britany Knight MD LAB BLOOD ORDERABLES Final Res ult Performing Organization Address City/[facility] Co de Phone Number [facility] [place] [address] * (ABNORMAL) eGFR (09/24/2024 11:56 PM SLIP INJECTOR AND APPLICATOR) eGFR 13(L) >=60 mL/min/1. 73 m2 Comment: [...] reviewed 2021. Blood 09/24/2024 11:5 6 PM SLIP INJECTOR AND APPLICATOR 09/25/2024 12:21 AM SLIP INJECTOR AND APPLICATOR us Najma Pires MD LAB BLOOD ORDERABLES Final Result Performing Organization Address [facility] Co de Phone Number [facility] [place] [address] * (ABNORMAL) Differential, auto (09/24/2024 11:56 PM SLIP INJECTOR AND APPLICATOR) Neutrophil abs 12.8(H) 1.5 - 6.5 K/cumm Imm gran abs 0.1 0.0 - 0.1 K/cumm [facility] Lymphocyte abs 0.9 0.8 - 3.3 K/cumm [facility] Monocyte abs 1.2(H) 0.2 - 0.8 K/cumm [facility] Eosinophil abs 0.1 0.0 - 0.5 K/cumm [facility] Basophil abs 0.0 0.0 - 0.1 K/cumm [facility] Neutrophil pct 84.6 % [facility] Comment: Interpretive Data Percent cell count reference ranges are not reported, since discordance with absolute values may lead to misinterpretation of CBC data. Current Interpretive Data was last revised on 2017. Imm gran pct 0.5 % CHARISSA [facility] Comment: Interpretive Data Percent cell count reference ranges are not reported, since discordance with absolute values may lead to misinterpretation of CBC data. Current Interpretive Data was last revised on 2017. Lymphocyte pct 6.1 % CHARISSA [facility] Comment: Interpretive Data Percent cell count reference ranges are not reported, since discordance with absolute values may lead to misinterpretation of CBC data. Current Interpretive Data was last revised on 2017. Monocyte pct 7.6 % [facility] Comment: Interpretive Data Percent cell count reference ranges are not reported, since discordance with absolute values may lead to misinterpretation of CBC data. Current Interpretive Data was last revised on 2017. Eosinophil pct 0.9 % [facility] Comment: Interpretive Data Percent cell count reference ranges are not reported, since discordance with absolute values may lead to misinterpretation of CBC data. Current Interpretive Data was last revised on 2017. Basophil pct 0.3 % [facility] Comment: Interpretive Data Percent cell count reference ranges are not reported, since discordance with absolute values may lead to misinterpretation of CBC data. Current Interpretive Data was last revised on 2017. Blood 09/24/2024 11:5 6 PM SLIP INJECTOR AND APPLICATOR 09/25/2024 12:10 AM SLIP INJECTOR AND APPLICATOR us Najma Pires MD LAB BLOOD ORDERABLES Final Result CHARISSA [facility] [place] [address] * (ABNORMAL) CBC with auto differential (09/24/2024 11:56 PM SLIP INJECTOR AND APPLICATOR) WBC 15.1(H) 3.8 - 9.9 K/cumm Hgb 15.3 11.9 - 15.5 g/dL [facility] Hct 42.8 35.6 - 45.5 % [facility] Plt 93(L) 150 - 400 K/cumm [facility] MPV 12.4(H) 9.1 - 12.3 fL [facility] RBC 4.80 3.90 - 5.20 M/cumm [facility] MCV 89.2 81.3 - 96.4 fL [facility] MCH 31.9 27.1 - 33.3 pg [facility] MCHC 35.7 32.3 - 35.7 g/dL [facility] RDW CV 14.4 11.1 - 14.9 % [facility] RDW SD 46.5 35.7 - 48.1 fL [facility] NRBC abs 0.00 0.00 - 0.01 K/cumm [facility] Blood 09/24/2024 11:5 6 PM SLIP INJECTOR AND APPLICATOR 09/25/2024 12:10 AM SLIP INJECTOR AND APPLICATOR us Najma Pires MD LAB BLOOD ORDERABLES Final Result [facility] [place] [address] * [id number], Tumor Marker (09/24/2024 11:56 PM SLIP INJECTOR AND APPLICATOR) alpha Fetoprotein <2.0 <=8.3 ng/mL Comment: Interpretive [...] 2018;[id number] Katya House et al. Clin Chem 2014;[id number]. Current interpretive data was last revised 2022. Blood 09/24/2024 11:5 6 PM SLIP INJECTOR AND APPLICATOR 09/25/2024 12:09 AM SLIP INJECTOR AND APPLICATOR Najma Pires MD LAB BLOOD ORDERABLES Final Result Performing Organization Address [facility] de Phone Number [facility] [place] [address] * (ABNORMAL) Protime-INR (09/24/2024 11:56 PM SLIP INJECTOR AND APPLICATOR) PT 14.3(H) 9.7 - 13.0 sec INR 1.32(H) 0.90 - 1.20 [facility] Comment: Interpretive data Oral anticoagulant therapeutic ranges: Venous thromboembolism prophylaxis or treatment: 2.0-3.0 CARDIOLOGY Standard range: 2.0-3.0 High-intensity range: 2.5-3.5 Refer to indication-specific guidelines for appropriate target ranges for prosthetic heart valve replacement. Current interpretive data was last revised on 2019. Blood 09/24/2024 11:5 6 PM SLIP INJECTOR AND APPLICATOR 09/25/2024 12:15 AM SLIP INJECTOR AND APPLICATOR us Stuart Flores MD LAB BLOOD ORDERABLES Final Resul t Performing Organization Address [facility] de Phone Number [facility] [place] [address] * (ABNORMAL) Phosphorus (09/24/2024 11:56 PM SLIP INJECTOR AND APPLICATOR) Phosphorus, pl 6.9(H) 2.3 - 4.5 mg/dL Blood 09/24/2024 11:5 6 PM SLIP INJECTOR AND APPLICATOR 09/25/2024 12:07 AM SLIP INJECTOR AND APPLICATOR Najma Pires MD LAB BLOOD ORDERABLES Final Result [facility] Department [place] [address] * Magnesium (09/24/2024 11:56 PM SLIP INJECTOR AND APPLICATOR) Pathologist [facility] Magnesium 2.4 1.4 - 2.5 mg/dL Blood 09/24/2024 11:5 6 PM SLIP INJECTOR AND APPLICATOR 09/25/2024 12:21 AM SLIP INJECTOR AND APPLICATOR Stuart Flores MD LAB BLOOD ORDERABLES Final Resul t Performing Organization Address [facility] Co de Phone Number [facility] Department [place] [address] * (ABNORMAL) Comprehensive metabolic panel (09/24/2024 11:56 PM SLIP INJECTOR AND APPLICATOR) [facility] Sodium 136 135 - 145 mmol/L Potassium, pl 3.5 3.3 - 4.9 mmol/L [facility] Chloride 92(L) 97 - 110 mmol/L [facility] CO2 25 22 - 32 mmol/L [facility] Anion gap 19(H) 2 - 15 mmol/L [facility] BUN 77(H) 6 - 25 mg/dL [facility] Creatinine 3.63(H) 0.60 - 1.10 mg/dL [facility] Glucose 410(H) 70 - 199 mg/dL [facility] Comment: Interpretive Data Fasting glucose >/= [...] 2022. Calcium 10.6(H) 8.5 - 10.3 mg/dL [facility] Bilirubin, total 2.3(H) 0.1 - 1.2 mg/dL [facility] Protein, pl 7.0 6.5 - 8.5 g/dL [facility] Albumin 3.3(L) 3.5 - 5.0 g/dL [facility] Alk phos 122 40 - 130 Units/L [facility] ALT 21 7 - 45 Units/L [facility] AST 47(H) 10 - 45 Units/L [facility] Blood 09/24/2024 11:5 6 PM SLIP INJECTOR AND APPLICATOR 09/25/2024 12:07 AM SLIP INJECTOR AND APPLICATOR Najma Pires MD LAB BLOOD ORDERABLES Final Result Performing Organization Address [facility]/ZIP Co de Phone Number [facility] [place] [address] * (ABNORMAL) Sepsis Lactate w/ Reflex (09/24/2024 11:55 PM SLIP INJECTOR AND APPLICATOR) Sepsis Lactate 5.1(C) 0.7 - 2.0 mmol/L Blood 09/24/2024 11:5 5 PM SLIP INJECTOR AND APPLICATOR 09/25/2024 12:16 AM SLIP INJECTOR AND APPLICATOR Britany Knight MD LAB BLOOD ORDERABLES Final Res ult Performing Organization Address [facility] de Phone Number [facility] [place] [address] * Critical Result Callback Chemistry (09/24/2024 11:55 PM SLIP INJECTOR AND APPLICATOR) Date Notified 20240925 Time Notified 38 [facility] TestName Sepsis Lactate CHARISSA [facility] Called/Read Back Katia DUNNE Credentials RN CHARISSA [facility] Called By SHASTA CARRINGTON [facility] Blood 09/24/2024 11:5 5 PM SLIP INJECTOR AND APPLICATOR 09/25/2024 12:16 AM SLIP INJECTOR AND APPLICATOR Britany Knight MD LAB BLOOD ORDERABLES Final Res ult [facility] [place] [address] * (ABNORMAL) POCT glucose (09/24/2024 11:08 PM SLIP INJECTOR AND APPLICATOR) Glucose, POC 363(H) 70 - 199 mg/dL Blood 09/24/2024 11:0 8 PM SLIP INJECTOR AND APPLICATOR 09/24/2024 11:08 PM SLIP INJECTOR AND APPLICATOR us Stuart Flores MD LAB POCT ORDERABLES - DEVICE Fin al Result Performing Organization Address City/[facility] Co de Phone Number CHARISSA [facility] [place] [address] * XR Chest 1 View (09/24/2024 11:02 PM SLIP INJECTOR AND APPLICATOR) Anatomical Region Laterality Modality Body, Chest N/A Computed Radiogr aphy 09/25/2024 10:0 6 AM SLIP INJECTOR AND APPLICATOR Impressions 09/25/2024 10:06 AM SLIP INJECTOR AND APPLICATOR Comparison is made to prior from 09/24/2024. Nasogastric tube terminates below the diaphragms. Heart size is normal. Lungs are clear. No pleural effusion or pneumothorax. Electronically signed by: Louie Lynne M.D. Narrative 09/25/2024 10:06 AM SLIP INJECTOR AND APPLICATOR EXAMINATION: 1 view chest radiograph Procedure Note [...] US Liver Doppler Complete (09/24/2024 9:07 PM SLIP INJECTOR AND APPLICATOR) Anatomical Region Laterality Modality Vascular N/A Ultrasound 09/25/2024 8:56 AM SLIP INJECTOR AND APPLICATOR Impressions 09/25/2024 12:48 PM SLIP INJECTOR AND APPLICATOR 1. Reversed flow within the portosystemic confluence, [...] Juan Morris M.D. Narrative 09/25/2024 12:48 PM SLIP INJECTOR AND APPLICATOR EXAMINATION: US LIVER DOPPLER COMPLETE HISTORY: 63 [...] * (ABNORMAL) POCT glucose (09/24/2024 8:08 PM SLIP INJECTOR AND APPLICATOR) Glucose, POC 384(H) 70 - 199 mg/dL Comment:Glu2: RN/ Notified Glucose comment 1 Glu2: TYRA/ Notified CHARISSA DUNNE Blood 09/24/2024 8:08 PM SLIP INJECTOR AND APPLICATOR 09/24/2024 8:08 PM SLIP INJECTOR AND APPLICATOR us Stuart Flores MD LAB POCT ORDERABLES - DEVICE Fin al Result [facility] Department [place] [address] * MI CRITICAL CARE ILL/INJURED PATIENT INIT 30-74 MIN (09/24/2024 4:23 PM SLIP INJECTOR AND APPLICATOR) Narrative Paxton Hawk MD - 09/24/2024 4:23 PM SLIP INJECTOR AND APPLICATOR Paxton Hawk MD 09/24/2024 4:25 PM Critical [...] Sepsis Lactate w/ Reflex (09/24/2024 2:37 PM SLIP INJECTOR AND APPLICATOR) Sepsis Lactate 4.1(C) 0.7 - 2.0 mmol/L Comment:reviewed Blood 09/24/2024 2:37 PM SLIP INJECTOR AND APPLICATOR 09/24/2024 2:44 PM SLIP INJECTOR AND APPLICATOR us Britany Knight MD LAB BLOOD ORDERABLES Final Res ult [facility] Department [place] [address] * Critical Result Callback Chemistry (09/24/2024 2:37 PM SLIP INJECTOR AND APPLICATOR) Date Notified 20240924 Time Notified [address] [facility] TestName Sepsis Lactate CHARISSA [facility] Called/Read Back Britany Knight [facility] Credentials RN CHARISSA DUNNE Called By ra CARRINGTON [facility] Blood 09/24/2024 2:37 PM SLIP INJECTOR AND APPLICATOR 09/24/2024 2:44 PM SLIP INJECTOR AND APPLICATOR us Britany Knight MD LAB BLOOD ORDERABLES Final Res ult Performing Organization Address City/[facility]/ZIP Co de Phone Number [facility] [place] [address] * (ABNORMAL) Troponin I high-sensitivity 2-hour (09/24/2024 2:36 PM SLIP INJECTOR AND APPLICATOR) Trop I hs 26(H) <=17 ng/L Comment: Interpretive Data For further hscTnI resources including the diagnostic algorithm and an aid in interpretation, copy and paste this link: https://bjhlab.testcatalog.org/show/hsTrop-1 Current Interpretive Data last revised 2020. Trop I hs delta 2 ng/L [facility] Trop I hs interp Insignificant [facility] Blood 09/24/2024 2:36 PM SLIP INJECTOR AND APPLICATOR 09/24/2024 3:01 PM SLIP INJECTOR AND APPLICATOR us Britany Knight MD LAB BLOOD ORDERABLES Final Res ult [facility] [place] [address] * Blood culture Blood (09/24/2024 2:36 PM SLIP INJECTOR AND APPLICATOR) Report Final Report: No growth Blood 09/24/2024 2:36 PM SLIP INJECTOR AND APPLICATOR 09/24/2024 2:44 PM SLIP INJECTOR AND APPLICATOR Narrative [facility] - 09/29/2024 3:10 PM SLIP INJECTOR AND APPLICATOR Collection->Peripheral 1. Blood cultures are incubated for [...] performance characteristics have been verified by the [facility] Microbiology Laboratory. For questions about this culture, contact the Microbiology Laboratory at [phone]. Interpretive data was last revised on 24. Britany Knight MD LAB MICROBIOLOGY - GENERAL ORD ERABLES Final Result [facility] Department [place] [address] * Respiratory pathogen panel Nasopharyngeal (09/24/2024 1:39 PM SLIP INJECTOR AND APPLICATOR) Pathologist [facility] Influenza A RNA Not Detected Not Detected Influenza B RNA Not Detected Not Detected [facility] RSV RNA Not Detected Not Detected [facility] COVID-19 RNA Not Detected Not Detected [facility] Coronavirus 229E RNA Not Detected Not Detected [facility] Coronavirus HKU1 RNA Not Detected Not Detected [facility] Coronavirus NL63 RNA Not Detected Not Detected [facility] Coronavirus OC43 RNA Not Detected Not Detected [facility] Adenovirus DNA Not Detected Not Detected [facility] Metapneumovirus RNA Not Detected Not Detected [facility] Rhinovirus/Enterov irus RNA Not Detected Not Detected [facility] Parainfluenza 1 RNA Not Detected Not Detected [facility] Parainfluenza 2 RNA Not Detected Not Detected [facility] Parainfluenza 3 RNA Not Detected Not Detected [facility] Parainfluenza 4 RNA Not Detected Not Detected [facility] B. pertussis DNA Not Detected Not Detected [facility] B. parapertussis DNA Not Detected Not Detected [facility] C. pneumoniae DNA Not Detected Not Detected [facility] M. pneumoniae DNA Not Detected Not Detected [facility] Nasopharyngeal 09/24/2024 1: 39 PM SLIP INJECTOR AND APPLICATOR 09/24/2024 1:49 PM SLIP INJECTOR AND APPLICATOR Narrative [facility] - 09/24/2024 3:12 PM SLIP INJECTOR AND APPLICATOR Is the Patient experiencing symptoms consistent with COVID?->Yes Surveillance testing for transplant patient?->No Interpretive Data The [employer] FilmArray Respiratory Panel (RP2.1) assay is a [...] assay has FDA clearance for testing of TRANSPORTATION MAINTENANCE SPECIALIST swabs. The performance of additional specimen types has been assessed by the performing laboratory. The performance characteristics of this assay have been determined by [facility] Molecular Infectious Disease Laboratory. Current interpretive data was last revised on 22. us Britany Knight MD LAB MICROBIOLOGY - GENERAL ORD ERABLES Final Result [facility] [place] [address] * Blood culture Blood (09/24/2024 1:39 PM SLIP INJECTOR AND APPLICATOR) Report Final Report: No growth Blood 09/24/2024 1:39 PM SLIP INJECTOR AND APPLICATOR 09/24/2024 1:50 PM SLIP INJECTOR AND APPLICATOR Narrative PORSHASOTO [facility] - 09/29/2024 3:05 PM SLIP INJECTOR AND APPLICATOR Collection->Peripheral 1. Blood cultures are incubated for [...] performance characteristics have been verified by the [facility] Microbiology Laboratory. For questions about this culture, contact the Microbiology Laboratory at [phone]. Interpretive data was last revised on 24. Britany Knight MD LAB MICROBIOLOGY - GENERAL ORD ERABLES Final Result CHARISSA DUNNE [facility] [place] [address] * XR Chest 1 Vw Portable (09/24/2024 12:59 PM SLIP INJECTOR AND APPLICATOR) Anatomical Region Laterality Modality Body, Chest N/A Computed Radiogr aphy 09/24/2024 1:05 PM SLIP INJECTOR AND APPLICATOR Impressions 09/24/2024 1:05 PM SLIP INJECTOR AND APPLICATOR Comparison April 2024. Small lung volumes with mild scattered atelectasis throughout the lung. Given some limitations of portable technique, No focal consolidation suspicious for pneumonia. No pulmonary edema, pleural effusion, or pneumothorax. The heart and mediastinal contours are unchanged. Electronically signed by: Mohinder Ferro M.D. Narrative 09/24/2024 1:05 PM SLIP INJECTOR AND APPLICATOR EXAMINATION: 1 view chest radiograph Procedure Note [...] * POCT ketone, blood (09/24/2024 12:40 PM SLIP INJECTOR AND APPLICATOR) Beta-Hydroxybut yrate, POC 0.4 0.0 - 0.5 mmol/L Blood 09/24/2024 12:4 0 PM SLIP INJECTOR AND APPLICATOR 09/24/2024 12:40 PM SLIP INJECTOR AND APPLICATOR Stuart Flores MD LAB POCT ORDERABLES - DEVICE Fin al Result Performing Organization Address [facility] Co de Phone Number [facility] [place] [address] * (ABNORMAL) POCT glucose (09/24/2024 12:37 PM SLIP INJECTOR AND APPLICATOR) [facility] Glucose, POC 329(H) 70 - 199 mg/dL Blood 09/24/2024 12:3 7 PM SLIP INJECTOR AND APPLICATOR 09/24/2024 12:37 PM SLIP INJECTOR AND APPLICATOR Louie Malone MD LAB POCT ORDERABLES - DEVICE Final Result Performing Organization Address [facility] [address] * (ABNORMAL) Troponin I high-sensitivity series (baseline, 2hr, 4hr, 6hr) (09/24/2024 12:35 PM SLIP INJECTOR AND APPLICATOR) [facility] Trop I hs 24(H) <=17 ng/L Comment: Interpretive Data For further hscTnI resources including the diagnostic algorithm and an aid in interpretation, copy and paste this link: https://bjhlab.testcatalog.org/show/hsTrop-1 Current Interpretive Data last revised 2020. Blood 09/24/2024 12:3 5 PM SLIP INJECTOR AND APPLICATOR 09/24/2024 12:59 PM SLIP INJECTOR AND APPLICATOR Britany Knight MD LAB BLOOD ORDERABLES Final Res ult Performing Organization Address [facility] Co de Phone Number [facility] [place] [address] * (ABNORMAL) Sepsis Lactate w/ Reflex (09/24/2024 12:35 PM SLIP INJECTOR AND APPLICATOR) [facility] Sepsis Lactate 4.4(C) 0.7 - 2.0 mmol/L Blood 09/24/2024 12:3 5 PM SLIP INJECTOR AND APPLICATOR 09/24/2024 12:48 PM SLIP INJECTOR AND APPLICATOR Britany Knight MD LAB BLOOD ORDERABLES Final Res ult Performing Organization Address City/[facility]/ZIP Co de Phone Number [facility] [place] [address] * (ABNORMAL) eGFR (09/24/2024 12:35 PM SLIP INJECTOR AND APPLICATOR) [facility] eGFR 18(L) >=60 mL/min/1. 73 m2 Comment: [...] reviewed 2021. Blood 09/24/2024 12:3 5 PM SLIP INJECTOR AND APPLICATOR 09/24/2024 12:59 PM SLIP INJECTOR AND APPLICATOR Britany Knight MD LAB BLOOD ORDERABLES Final Res ult [facility] [place] [address] * Differential, auto (09/24/2024 12:35 PM SLIP INJECTOR AND APPLICATOR) Neutrophil abs 5.4 1.5 - 6.5 K/cumm Imm gran abs 0.0 0.0 - 0.1 K/cumm [facility] Lymphocyte abs 0.9 0.8 - 3.3 K/cumm [facility] Monocyte abs 0.6 0.2 - 0.8 K/cumm [facility] Eosinophil abs 0.2 0.0 - 0.5 K/cumm [facility] Basophil abs 0.0 0.0 - 0.1 K/cumm [facility] Neutrophil pct 74.8 % [facility] Comment: Interpretive Data Percent cell count reference ranges are not reported, since discordance with absolute values may lead to misinterpretation of CBC data. Current Interpretive Data was last revised on 2017. Imm gran pct 0.6 % [facility] Comment: Interpretive Data Percent cell count reference ranges are not reported, since discordance with absolute values may lead to misinterpretation of CBC data. Current Interpretive Data was last revised on 2017. Lymphocyte pct 12.7 % [facility] Comment: Interpretive Data Percent cell count reference ranges are not reported, since discordance with absolute values may lead to misinterpretation of CBC data. Current Interpretive Data was last revised on 2017. Monocyte pct 8.7 % [facility] Comment: Interpretive Data Percent cell count reference ranges are not reported, since discordance with absolute values may lead to misinterpretation of CBC data. Current Interpretive Data was last revised on 2017. Eosinophil pct 2.9 % [facility] Comment: Interpretive Data Percent cell count reference ranges are not reported, since discordance with absolute values may lead to misinterpretation of CBC data. Current Interpretive Data was last revised on 2017. Basophil pct 0.3 % [facility] Comment: Interpretive Data Percent cell count reference ranges are not reported, since discordance with absolute values may lead to misinterpretation of CBC data. Current Interpretive Data was last revised on 2017. Blood 09/24/2024 12:3 5 PM SLIP INJECTOR AND APPLICATOR 09/24/2024 12:59 PM SLIP INJECTOR AND APPLICATOR Britany Knight MD LAB BLOOD ORDERABLES Final Res ult [facility] [place] [address] * Critical Result Callback Chemistry (09/24/2024 12:35 PM SLIP INJECTOR AND APPLICATOR) Date Notified 20240924 Time Notified 1254 [facility] TestName Sepsis Lactate CHARISSA [facility] Called/Read Back Lauren Rand [facility] Credentials RN [facility] Called By kati [facility] Blood 09/24/2024 12:3 5 PM SLIP INJECTOR AND APPLICATOR 09/24/2024 12:48 PM SLIP INJECTOR AND APPLICATOR Britany Knight MD LAB BLOOD ORDERABLES Final Res ult Performing Organization Address [facility] Co de Phone Number [facility] [place] [address] * (ABNORMAL) CBC with auto differential (09/24/2024 12:35 PM SLIP INJECTOR AND APPLICATOR) WBC 7.2 3.8 - 9.9 K/cumm Hgb 14.7 11.9 - 15.5 g/dL [facility] Hct 42.0 35.6 - 45.5 % [facility] Plt 101(L) 150 - 400 K/cumm [facility] MPV 12.0 9.1 - 12.3 fL [facility] RBC 4.72 3.90 - 5.20 M/cumm [facility] MCV 89.0 81.3 - 96.4 fL [facility] MCH 31.1 27.1 - 33.3 pg [facility] MCHC 35.0 32.3 - 35.7 g/dL [facility] RDW CV 14.5 11.1 - 14.9 % [facility] RDW SD 46.3 35.7 - 48.1 fL [facility] NRBC abs 0.00 0.00 - 0.01 K/cumm [facility] Blood 09/24/2024 12:3 5 PM SLIP INJECTOR AND APPLICATOR 09/24/2024 12:59 PM SLIP INJECTOR AND APPLICATOR Britany Knight MD LAB BLOOD ORDERABLES Final Res ult Performing Organization Address [facility] Co de Phone Number [facility] [employer] [address] * aPTT (09/24/2024 12:35 PM SLIP INJECTOR AND APPLICATOR) aPTT 33 28 - 38 sec Comment: Interpretive Data Heparin therapeutic range: 66.0 - 100.0 seconds. Range based on correlation with therapeutic heparin activity range of 0.3 - 0.7 Units/mL. Current interpretive data was last revised on 2023. Blood 09/24/2024 12:3 5 PM SLIP INJECTOR AND APPLICATOR 09/24/2024 12:52 PM SLIP INJECTOR AND APPLICATOR Britany Knight MD LAB BLOOD ORDERABLES Final Res ult Performing Organization Address [facility] de Phone Number [facility] [place] [address] * (ABNORMAL) Protime-INR (09/24/2024 12:35 PM SLIP INJECTOR AND APPLICATOR) PT 14.1(H) 9.7 - 13.0 sec INR 1.30(H) 0.90 - 1.20 [facility] Comment: Interpretive data Oral anticoagulant therapeutic ranges: Venous thromboembolism prophylaxis or treatment: 2.0-3.0 CARDIOLOGY Standard range: 2.0-3.0 High-intensity range: 2.5-3.5 Refer to indication-specific guidelines for appropriate target ranges for prosthetic heart valve replacement. Current interpretive data was last revised on 2019. Blood 09/24/2024 12:3 5 PM SLIP INJECTOR AND APPLICATOR 09/24/2024 12:52 PM SLIP INJECTOR AND APPLICATOR Britany Knight MD LAB BLOOD ORDERABLES Final Res ult Performing Organization Address [facility] de Phone Number [facility] [place] [address] * Type and screen (09/24/2024 12:35 PM SLIP INJECTOR AND APPLICATOR) Rosemarie, indirect Negative ABO Rh A Positive [facility] Blood 09/24/2024 12:3 5 PM SLIP INJECTOR AND APPLICATOR 09/24/2024 1:15 PM SLIP INJECTOR AND APPLICATOR Narrative [facility] - 09/24/2024 2:15 PM SLIP INJECTOR AND APPLICATOR Has the patient had Daratumumab or Isatuximab in the past 6 months?->Unknown Britany Knight MD LAB BLOOD BANK TEST ORDERABLES Final Result Performing Organization Address [facility] Co de Phone Number [facility] [place] [address] * Blood gas, venous (09/24/2024 12:35 PM SLIP INJECTOR AND APPLICATOR) pH, Venous 7.39 7.32 - 7.43 PCO2, Venous 48 40 - 50 mmHg [facility] PO2, Venous 37 mmHg [facility] Comment: Interpretive Data No Reference Range Established Current Interpretive Data was last revised on 2017. HCO3 Venous, Calculated 30 20 - 30 mmol/L [facility] BE, venous 3 mmol/L [facility] Comment: Interpretive Data No Reference Range Established Current Interpretive Data was last revised on 2017. Blood 09/24/2024 12:3 5 PM SLIP INJECTOR AND APPLICATOR 09/24/2024 12:48 PM SLIP INJECTOR AND APPLICATOR Britany Knight MD LAB BLOOD ORDERABLES Final Res ult Performing Organization Address [facility]/ZIP Co de Phone Number [facility] [place] [address] * (ABNORMAL) Ammonia (09/24/2024 12:35 PM SLIP INJECTOR AND APPLICATOR) Ammonia 95(H) <=50 mcmol/L Blood 09/24/2024 12:3 5 PM SLIP INJECTOR AND APPLICATOR 09/24/2024 12:52 PM SLIP INJECTOR AND APPLICATOR Britany Knight MD LAB BLOOD ORDERABLES Final Res ult Performing Organization Address [facility] Co de Phone Number [facility] [place] [address] * (ABNORMAL) Hepatic function panel (09/24/2024 12:35 PM SLIP INJECTOR AND APPLICATOR) Bilirubin, total 3.0(H) 0.1 - 1.2 mg/dL Bilirubin, direct 1.0(H) 0.1 - 0.3 mg/dL [facility] Protein, pl 7.1 6.5 - 8.5 g/dL [facility] Albumin 3.2(L) 3.5 - 5.0 g/dL [facility] Alk phos 118 40 - 130 Units/L [facility] ALT 18 7 - 45 Units/L [facility] AST 53(H) 10 - 45 Units/L [facility] Blood 09/24/2024 12:3 5 PM SLIP INJECTOR AND APPLICATOR 09/24/2024 12:59 PM SLIP INJECTOR AND APPLICATOR Britany Knight MD LAB BLOOD ORDERABLES Final Res ult Performing Organization Address [facility] de Phone Number [facility] [place] [address] * (ABNORMAL) Basic metabolic panel (09/24/2024 12:35 PM SLIP INJECTOR AND APPLICATOR) Sodium 133(L) 135 - 145 mmol/L Potassium, pl 3.5 3.3 - 4.9 mmol/L [facility] Chloride 90(L) 97 - 110 mmol/L [facility] CO2 26 22 - 32 mmol/L [facility] Anion gap 17(H) 2 - 15 mmol/L [facility] BUN 64(H) 6 - 25 mg/dL [facility] Creatinine 2.92(H) 0.60 - 1.10 mg/dL [facility] Glucose 349(H) 70 - 199 mg/dL [facility] Comment: Interpretive Data Fasting glucose >/= [...] 2022. Calcium 11.1(H) 8.5 - 10.3 mg/dL [facility] Blood 09/24/2024 12:3 5 PM SLIP INJECTOR AND APPLICATOR 09/24/2024 12:59 PM SLIP INJECTOR AND APPLICATOR us Britany Knight MD LAB BLOOD ORDERABLES Final Res ult [facility] [place] [address] * Neuro CT Outside Consult (09/24/2024 12:33 PM SLIP INJECTOR AND APPLICATOR) Anatomical Region Laterality Modality N/A Computed Tomogra phy 09/24/2024 12:4 7 PM SLIP INJECTOR AND APPLICATOR Impressions 09/24/2024 12:47 PM SLIP INJECTOR AND APPLICATOR No acute intracranial abnormality. The findings and impression are based on the available images, which may not be appeals representative of the entire organ or disease entity. Also note that ultrasound image acquisition is turning sander operator dependent, and that the study was performed outside our facility with no control over image acquisition. In addition, the provided images may or may not represent the [place] source data set and thus may contain [...] history is necessary. Electronically signed by: Anastacio Angulo MD Narrative 09/24/2024 12:47 PM SLIP INJECTOR AND APPLICATOR EXAMINATION: RADIOLOGY CONSULTATION ON OUTSIDE IMAGING STUDY STUDY INITIALLY PERFORMED: 09/24/2024 at [facility] [place]. TYPE OF STUDY: Multiple CT images without [...] paranasal sinuses are normal. Procedure Note Anastacio Angulo MD - 09/24/2024 EXAMINATION: RADIOLOGY CONSULTATION ON OUTSIDE IMAGING STUDY STUDY INITIALLY PERFORMED: 09/24/2024 at [facility] [place]. TYPE OF STUDY: Multiple CT images without [...] the available images, which may not be appeals representative of the entire organ or disease entity. Also note that ultrasound image acquisition is turning sander operator dependent, and that the study was performed outside our facility with no control over image acquisition. In addition, the provided images may or may not represent the [place] source data set and thus may contain [...] history is necessary. Electronically signed by: Anastacio Angulo MD Britany Knight MD IMG CT PROCEDURES Final Result * XR Outside Reference (09/24/2024 12:28 PM SLIP INJECTOR AND APPLICATOR) Impressions RAD_PACS[facility] - 09/24/2024 12:28 PM SLIP INJECTOR AND APPLICATOR These images are for Reference purposes only and have not been reviewed by [facility] Radiology. There will be no report generated by a [facility] Radiologist. Narrative RAD_PACS_BJ - 09/24/2024 12:28 PM SLIP INJECTOR AND APPLICATOR EXAMINATION: Images For Reference Purposes Only Britany Knight MD IMG XR PROCEDURES Final Result Performing Organization Address [facility] Co de Phone Number [email or web address] * HLA Antibody Screen by PRA or SAB per Schedule (Class I and Class II) (09/21/2024 1:00 PM SLIP INJECTOR AND APPLICATOR) Blood 09/21/2024 1:00 PM SLIP INJECTOR AND APPLICATOR Narrative [facility] - SLIP INJECTOR AND APPLICATOR Sample received in lab. Single Antigen Antibody Screen ordered. Timothy Pardo MD LAB BLOOD ORDERABL ES Final Result Performing Organization Address City/[facility] Co de Phone Number [facility] * HLA Antibody Screen - SAB (Class I and Class II) (09/21/2024 1:00 PM SLIP INJECTOR AND APPLICATOR) Class I Treatment EDTA [facility] Class I [...] DR10, DR12, DR52 [facility] 09/21/2024 1:00 PM SLIP INJECTOR AND APPLICATOR 09/29/2024 9:55 AM SLIP INJECTOR AND APPLICATOR Narrative [facility] - 09/29/2024 9:55 AM SLIP INJECTOR AND APPLICATOR Single-antigen HLA antibody screen is performed on serum samples using a method developed and validated by the [facility] HLA laboratory based on an FDA-approved IVD kit (LABScreen Single-Antigen, [employer], [place], [place]). All patient serum samples are pretreated with EDTA before the screen to prevent complement interference. Additional serum treatments, such as adsorption and DTT treatment, may be performed as indicated. Interpretive comments: Low risk: MFI [id number]. Moderate risk: MFI [id number]. Increased risk: MFI >/= 5000. The presence [...] antigens to avoid. Testing performed at the [facility] HLA Laboratory, [facility], [address]th floor, [place], [address]. CLIA # [id number]. Rani Smith, Ph.D., Upholsterer Inside, HLA Laboratory Aurelio Palafox M.D., Ph.D., [employer], HLA Laboratory Norma Talamantes, Ph.D., CLIA [employer], [facility] Clinical Laboratories Current methodology and interpretive comments last revised on 09/06/2022. Timothy Pardo MD LAB BLOOD ORDERABL ES Final Result [facility] * SCAN - LABS (09/07/2024) Provider Scanning Final Result * (ABNORMAL) eGFR (08/27/2024 1:35 PM SLIP INJECTOR AND APPLICATOR) eGFR 31(L) >=60 mL/min/1. 73 m2 Comment: [...] last reviewed 2021. Blood 08/27/2024 1:35 PM SLIP INJECTOR AND APPLICATOR 08/27/2024 1:59 PM SLIP INJECTOR AND APPLICATOR Taiwo Vázquez MD LAB BLOOD ORDERABLES Fin al Result Performing Organization Address [facility] Co de Phone Number [facility] [place] [address] * (ABNORMAL) Protime-INR (08/27/2024 1:35 PM SLIP INJECTOR AND APPLICATOR) PT 14.1(H) 9.7 - 13.0 sec INR 1.30(H) 0.90 - 1.20 [facility] Comment: Interpretive data Oral anticoagulant therapeutic ranges: Venous thromboembolism prophylaxis or treatment: 2.0-3.0 CARDIOLOGY Standard range: 2.0-3.0 High-intensity range: 2.5-3.5 Refer to indication-specific guidelines for appropriate target ranges for prosthetic heart valve replacement. Current interpretive data was last revised on 2019. Blood 08/27/2024 1:35 PM SLIP INJECTOR AND APPLICATOR 08/27/2024 1:48 PM SLIP INJECTOR AND APPLICATOR Taiwo Vázquez MD LAB BLOOD ORDERABLES Fin al Result Performing Organization Address [facility] de Phone Number [facility] Department [place] [address] * (ABNORMAL) Comprehensive metabolic panel (08/27/2024 1:35 PM SLIP INJECTOR AND APPLICATOR) Sodium 136 135 - 145 mmol/L Potassium, pl 3.6 3.3 - 4.9 mmol/L [facility] Chloride 101 97 - 110 mmol/L [facility] CO2 28 22 - 32 mmol/L [facility] Anion gap 7 2 - 15 mmol/L [facility] BUN 29(H) 6 - 25 mg/dL [facility] Creatinine 1.81(H) 0.60 - 1.10 mg/dL [facility] Glucose 293(H) 70 - 199 mg/dL [facility] Comment: Interpretive Data Fasting glucose >/= [...] Units/L [facility] Blood 08/27/2024 1:35 PM SLIP INJECTOR AND APPLICATOR 08/27/2024 1:48 PM SLIP INJECTOR AND APPLICATOR us Taiwo Vázquez MD LAB BLOOD ORDERABLES Fin al Result [facility] [place] [address] * HLA Antibody Screen by PRA or SAB per Schedule (Class I and Class II) (08/24/2024 10:00 AM SLIP INJECTOR AND APPLICATOR) Blood 08/24/2024 10:0 0 AM SLIP INJECTOR AND APPLICATOR Narrative [facility] - SLIP INJECTOR AND APPLICATOR Sample received in lab and stored. No testing performed at this time. us Timothy Pardo MD LAB BLOOD ORDERABL ES Final Result [facility] * SCAN - LABS (08/24/2024) us Provider Scanning Final Result * Pap and High Risk HPV and Genotyping (Cytology Component) (04/28/2024 10:41 AM CDT) Thin prep (Pap test) 04/28/2024 10:41 AM CDT 04/28/2024 1:00 PM CDT Narrative PATHOLOGY [facility] - 05/04/2024 4:21 PM CDT EPIC results best viewed via link to PDF [facility] Chelsea Cronin Laboratory [place] [address] Note to Patients: This report may contain [...] Gender: Michelle : 1960 (Age: 63) Address: [address] [place] [address] Hospital #: [id number] Service: Medical Location: [place] [address] Patient Type: [facility] Inpatient Taken: 04/28/2024 Received: 04/28/2024 [...] this test have been verified by the [facility] Molecular Infectious Disease laboratory. Correlate [...] clinical information and biopsy results as indicated. [facility] Clinical Laboratory Improvement Amendments (CLIA) mandate that cytologic and histologic results be correlated for laboratory quality audit representative & improvement standards. FOR ALL HIGH-GRADE CASES [...] determined by the Surgical Pathology Department at [facility] as part of an ongoing lead quality technician program and in compliance with federally mandated [...] determined by the Surgical Pathology Department of [facility]. It has not been cleared or approved by the U. S. Food and Drug Administration. Eladio Carey MD LAB CYTOLOGY ORDERABLES Final Result PATHOLOGY [facility] 3rd Floor [place], [place] [phone] * Screening Mammogram Bilateral W Pal (04/27/2024 1:55 PM CDT) Anatomical Region Laterality Modality Breast Bilateral Mammography Narrative 04/27/2024 1:52 PM CDT Mammogram Technique: Bilateral Digital Breast Tomosynthesis, Bilateral C-view 2D Screening mammogram. Views obtained: bilateral craniocaudal and bilateral mediolateral oblique. Computer Aided Detection was performed. Mammogram Findings: The present examination has been compared to prior imaging studies performed at [facility] on 05/15/2021 and 12/06/2021. There [...] compared to prior imaging studies performed at [facility] on 05/15/2021 and 12/06/2021. There [...] revised on 2018. Triglycerides 43 <=149 mg/dL [facility] Comment: Interpretive Data Ages < [...] on 2018. HDL 64 >=40 mg/dL [facility] Comment: Interpretive Data Ages < [...] on 2018. LDL, calculated 47 <=129 mg/dL [facility] Comment: Interpretive Data Ages < [...] revised on 2024. Non-HDL Cholesterol 58 mg/dL [facility] Comment: Interpretive Data Ages < [...] last revised on 2018. Chol/HDL ratio 2 [facility] Blood 04/22/2024 12:5 8 AM CDT 04/22/2024 3:00 AM CDT us John Paul Reddy MD LAB BLOOD ORDERABLES Final Resul t [facility] [place] [address] * Hepatitis C antibody Blood (06/16/2023 6:09 AM SLIP INJECTOR AND APPLICATOR) Hep C Ab Nonreactive Nonreactive [facility] Comment:Antibodies to HCV no t detected. Does NOT exclude the possibility of recent exposure to HCV. Current interpretive data was last revised on 22 Blood 06/16/2023 6:09 AM SLIP INJECTOR AND APPLICATOR 06/16/2023 6:35 AM SLIP INJECTOR AND APPLICATOR us Alejandro Frazier MD LAB MICROBIOLOGY - GENERAL ORDERABLES Final Result [facility] [place] [address] * COLONOSCOPY (05/30/2022 9:28 AM CDT) Anatomical Region Laterality Modality Other Narrative Procedure Note Pat Robins MD - 05/30/2022 9:28 AM CDT GI ENDOSCOPY [facility] Patient Name: Nael Levine Procedure Date: 05/30/2022 9:28 AM Date of : 1960 Admit Type: Outpatient Age: 61 Gender: Female Attending MD: Pat Robins M.D. Room: [facility] ENDOSCOPY ROOM 3 Note Status: Finalized [...] The scope was passed under direct vision.The [facility] [id number] endoscope was introducedthrough the anus and [...] On: 05/30/2022 9:28 AM Recognized by the [place] for promoting quality in endoscopy Pat Robins MD ENDOSCOPY PROCEDURES Ju l Result * Albumin Creatinine Ratio, Urine (03/01/2021 2:45 PM CDT) Albumin Ur <12.0 mg/L [facility] Comment: Interpretive Data No reference range established. Current interpretive data was last revised 2018. Creatinine Ur 59.5 mg/dL [facility] Comment: Interpretive Data No reference range established. Current interpretive data was last revised 2018. Albumin Creatinine Ratio, Ur <20 1 - 29 mg/g [facility] Urine 03/01/2021 2:45 PM CDT 03/01/2021 3:41 PM CDT us Oly Baker MD LAB URINE ORDER RAVEN Final Result [facility] [place] [address] from Last 3 Months or Most Recently Relevant to Health Maintenance Insurance [facility] [place]geniatrics [place] [facility] ACCESS Ingeniatrics OOS [facility] TRANSPLANT [facility] MEDICARE ADVANTAGE [facility] MEDICARE ADVANTAGE TRANSPLANT [employer] MEDICARE RISK TRANSPLANT [employer] MED[employer]ARE RISK TRANSPLANT [employer] MED[employer]ARE RISK Advance Directives For more information, please contact: [phone] * Full Code (Latest Code Status on [...] 7:39 PM 01/08/2023 4:21 PM Care Teams Housekeeping Aid Relationship Specialty Start Date End Date Maddy Romano MD [address] [place] [address] PCP - General 09/28/16 Manas Ibarra MD [address] [place], [place] [address] Referring Physician Thoracic Surgery 11/05/18 Zion Barton MD [address] [place], [place] [id number] Radiation Oncologist Radiation Oncology 05/05/19 Molina Charles MD 1 [facility] [address] [place] [address] Referring Physician Transplant Hepatology 12/15/20 Karuna Maria, OT Occupational Therapist Occupational Therapy 09/20/22 Renu Treviño NP [address] [facility] [address] [place] [address] Nurse Practitioner Radiation Oncology 11/08/22 Eladio Mcrae MD [address] [place] [address] Referring Physician Obstetrics and Gynecology 11/15/22 Tamiko Schroeder, RN [address] [place] [address] It Support Specialist 04/27/24 Chelsea Barker, dental directorIt Support Specialist 11/13/24
--- OUTSIDE RECORDS SUMMARY | 2024-11-19 14:14 | XMS_ITS | Encounter Summary ---
Author Organization [facility] Address [address] [place] [address] Phone Care Team Providers Care Traveling Nurse Name Role Phone Maddy Romano MD Primary Care Provider Astrid Haq NP Unavailable [phone] Manas Ibarra MD Unavailable Zion Barton MD Unavailable Molina Charles MD Unavailable [phone] Inés Lemus RN Unavailable [phone] Karuna Maria OT Unavailable Unavaila Renu Paul NP Unavailable [phone] Eladio Mcrae MD Unavailable Tamiko Schroeder RN Unavailable [phone] Briana Poe RN Unavailable Marina Le RN Unavailable [phone] Chelsea Barker RN Unavailable Unavail able Encounter [...] on file Legal Sex Female 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 Gender Identity Female 11/15/2021 2:30 AM CDT Sexual Orientation Straight 02/02/2020 9: 00 AM CDT 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 of this encounter Plan of Treatment Upcoming Encounters Date Type Department Care Team (Late st Contact Info) Description 12/01/2024 9:45 AM CDT Hospital Encounter [facility] [place] [id number] [address] Lea Gallardo MD [address] [address] 12/01/2024 9:45 AM CDT - 12/01/2024 10:30 AM CDT Surgery [facility] [place] [address] [address] Lea Gallardo MD [address] [place] [address] COLONOSCOPY Scheduled Procedures Name Priority Associated Diagnoses [...] COVID: Suspected 09/24/2024 09/24/2024 09/24/2024 3:13 PM USER INTERFACE DEVELOPER documented as of this encounter Care Teams Traveling Nurse Relationship Specialty Start Date End Date Maddy Romano MD [address] [place] [address] PCP - General 09/28/16 Astrid Haq NP [address] [place] [address] Nurse Practitioner Radiation Oncology 11/05/18 11/07/22 Manas Ibarra MD [address] [place] [address] Referring Physician Thoracic Surgery 11/05/18 Zion Barton MD [address] [place] [address] Radiation Oncologist Radiation Oncology 05/05/19 Molina Charles MD [address] [facility] [address] [address] [place] [address] Referring Physician Transplant Hepatology 12/15/20 Inés Lemus, TYRA [address] [place] [address] Regional Loss Prevention Manager 10/31/21 5 Karuna Maria OT Occupational Therapist Occupational Therapy 09/20/22 Renu Treviño NP [address] [facility] [address] [place] [address] Nurse Practitioner Radiation Oncology 11/08/22 Eladio Mcrae MD [address] [place] [address] Referring Physician Obstetrics and Gynecology 11/15/22 Tamkio Schroeder RN [address] [place] [address] Regional Loss Prevention Manager 04/27/24 Briana Poe RN [address] [place] [address] SHOP Outpatient Stable Hand 04/30/24 05/28/24 Marina Le RN [address] [place] [address] SHOP Outpatient Stable Hand 10/05/24 10/26/24 Chelsea Barker, yarn wrapperRegional Loss Prevention Manager 11/13/24 documented as of this encounter
--- OUTSIDE RECORDS SUMMARY | 2024-11-19 14:14 | XMS_ITS | Clinical Summary ---
Author Organization [facility] Address [address] [place] [address] Care Team Providers Care Import/Export Specialist Name Role Phone Maddy Romano MD Primary Care Provider Manas Ibarra MD Unavailable Zion Barton MD Unavailable Molina Charles MD Unavailable [phone] Karuna Maria OT Unavailable Unavaila Renu Paul NP Unavailable [phone] Eladio Mcrae MD Unavailable [phone] Tamiko Schroeder RN Unavailable [phone] Chelsea Barker RN Unavailable Unavail able Allergies Active Allergy Reactions Criticality Noted Date [...] stage 3a chronic kidney disease, unspecified whether 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 insulin use (HCC) Will use 1 sensor every 10 days. 1 box = 3 sensors. 3 each 08/19/19 25 Active blood-glucose transmitter (Dexcom G6 Transmitter) deviceIndications: Type 2 diabetes mellitus without complication, unspecified whether halfway insulin use (HCC) Will use 1 transmitter every 90 days 1 each 08/19/19 25 Active pen needle, diabetic (BD Ultra-Fine Mini Pen Needle) 31 gauge x 3/16 needleIndications: Type 2 diabetes mellitus without complication, unspecified whether halfway insulin use (HCC) USE TO INJECT INSULIN [...] 10/02/19 25 Active blood-glucose meter,continuous (Dexcom G7 Channeling Machine Operator) misc Use as directed. 1 each [...] total) by mouth daily 270 tablet 10/15/19 Active tirzepatide (Mounjaro) 2.5 mg/0.5 mL pen injector injection Inject 0.5 mL (2.5 mg total) under the skin once a week 2 mL 10/15/19 25 Active blood-glucose sensor (Dexcom G7 Sensor) device Use as directed. Change sensor every 10 days. 3 each 10/20/19 Active Active Problems Problem Noted Date Diagnosed [...] 10/10/2022 Assessment & Plan (10/12/2022 12:20 PM SOIL FERTILITY EXTENSION SPECIALIST): Episode of atrial flutter overnight with RVR up to 140s. Patient asymptomatic, normotensive. IV metoprolol X2 given to achieve rate control. [id number] vasc score of 3. TTE from 09/03 without valvular abnormalities. No new episodes today. Lytes within normal limits. - Continue equipment monitor phototypesetting - Continue home dose of metoprolol 25mg BID - Given that patient might be listed for transplant, hepatology would prefer to avoid apixaban. Lovenox is not ideal given her platelet count less than 100. Her INR is too high to consider warfarin. Anemia 10/05/2022 Assessment & Plan (10/11/2022 12:28 PM SOIL FERTILITY EXTENSION SPECIALIST): - Hgb has down trended from 8 at OSH. A few months ago, hgb was 10-11. Patient denies melena or hematochezia.Last EGD 2019 with gastropathy, but no esopageal varices. No ascites on exam. - She required 1 unit of PRBCs on admit for hgb 6.5 (10/05). - Continue PO PPI daily - Stopped octreotide gtt on 2/27 - Daily CBC, transfuse if Hgb <7. Monitor closely. - EGD 10/10: portal hypertensive gastropathy, no bleeding. - Hgb stable between 7.5-8 Hypertension 10/05/2022 Assessment & Plan (10/11/2022 12:45 PM SOIL FERTILITY EXTENSION SPECIALIST): -Continue home dose of metoprolol 25mg BID Hepatic encephalopathy 07/31/2022 Assessment & Plan (03/06/2023 5:49 PM CDT): Good control on current medical management. No changes indicated. Assessment & Plan (08/03/2022 1:05 PM SOIL FERTILITY EXTENSION SPECIALIST): Pt with hx of LYONS cirrhosis presenting with progressively worsening mental status over past several weeks. On initial examination patient was AAOx1, on subsequent exam she is now AAOx2 with appropriate responses. NH3 75. Unfortunately no safe area for bedside diagnostic paracentesis. Slurred speech and concerns for swallowing. SHORER completed swallow study and normal. Head CT: No acute intracranial abnormality. -Awaiting Liver MRI -Increased Lactulose to 4x daily (only 1 stool on 08/02) - Rifaximin and Lactulose (goal 3-5 bowel movements) - Fall precautions. - PT/OT: Home with assistance. Assessment & Plan (08/02/2022 2:34 PM SOIL FERTILITY EXTENSION SPECIALIST): Pt with hx of LYONS cirrhosis presenting with progressively worsening mental status over past several weeks. On initial examination patient was AAOx1, on subsequent exam she is now AAOx2 with appropriate responses. NH3 75. Unfortunately no safe area for bedside diagnostic paracentesis. Slurred speech and concerns for swallowing. SHORER completed swallow study and normal. Head CT: No acute intracranial abnormality. - Rifaximin and Lactulose (goal 3-5 bowel movements) - Fall precautions. - PT/OT: Home with assistance. - SHORER completed bedside swallow and Normal Assessment & Plan (08/01/2022 3:28 PM SOIL FERTILITY EXTENSION SPECIALIST): Pt with hx of LYONS cirrhosis presenting [...] concerns for swallowing. - Fall precautions. - SHORER/PT/OT Consults. Assessment & Plan (08/01/2022 4:16 AM SOIL FERTILITY EXTENSION SPECIALIST): Pt with hx of LYONS cirrhosis presenting [...] mellitus Assessment & Plan (10/12/2022 2:58 PM SOIL FERTILITY EXTENSION SPECIALIST): Previously on dose reduced insulin regimen at OSH 20u lantus, 7u tid lispro + ssi. - Her blood sugars were initially on the lower side (90-100) in setting of poor po intake and TR. Continue SSI only for now and will uptitrate as needed. - Continue Lantus 10u/daily + lispro 4TID Assessment & Plan (08/03/2022 1:09 PM SOIL FERTILITY EXTENSION SPECIALIST): Home regimen of toujeo 42 units + SSI. -Lantus, Lispro TID AC and SSI -No Juice Diet -Consistent Carb+ 2gm NA diet. -CTM BGL Assessment & Plan (08/02/2022 2:38 PM SOIL FERTILITY EXTENSION SPECIALIST): Home regimen of toujeo 42 units + SSI. -Lantus, Lispro TID AC and SSI -No Juice Diet -Consistent Carb+ 2gm NA diet. -CTM BGL Assessment & Plan (08/01/2022 3:26 PM SOIL FERTILITY EXTENSION SPECIALIST): Home regimen of toujeo 42 units + SSI. Given TR and decreased PO intake, insulin regimen reduced to Lantus 20units. - Continue on 2g Na + DM2 diet - CTM BGL Assessment & Plan (08/01/2022 4:17 AM SOIL FERTILITY EXTENSION SPECIALIST): Home regimen of toujeo 42 units + [...] (10/22/2022): Added automatically from request for surgery [id number] Volume overload 10/06/2022 05/29/2024 Assessment & Plan (10/10/2022 1:09 PM SOIL FERTILITY EXTENSION SPECIALIST): In the setting of LYONS cirrhosis. Diuretics [...] (08/22/2022): Added automatically from request for surgery [id number] Portal vein thrombosis 08/01/202208/22 Assessment & Plan (08/03/2022 1:09 PM SOIL FERTILITY EXTENSION SPECIALIST): -Apixaban 2.5mg BID Assessment & Plan (08/02/2022 2:39 PM SOIL FERTILITY EXTENSION SPECIALIST): -Apixaban 2.5mg BID Assessment & Plan (08/01/2022 3:27 PM SOIL FERTILITY EXTENSION SPECIALIST): -Apixaban 2.5mg BID Assessment & Plan (08/01/2022 4:17 AM SOIL FERTILITY EXTENSION SPECIALIST): Continue home apixaban LYONS (nonalcoholic steatohepatitis) 11/02/2021 07/15/2024 Abnormal mammogram of right breast 11/02/2020 08/22/2022 Preop cardiovascular exam 09/23/2019 Overview (09/23/2019): Added automatically from request for surgery [id number] Colon cancer screening 04/21/201908/22 Overview (04/21/2019): Added automatically from request for surgery [id number] Esophageal varices without bleeding (CMS/HCC) 04/21/20 19 08/22/2022 Overview (04/21/2019): Added automatically from request for surgery [id number] 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 07/26/2016 08/22/2022 Neutropenia 07/14/2015 07/15/2024 Portal vein thrombosis 07/14/201508/22 BMI 45.0-49.9, adult 11/18/2014 024 Hepatic cirrhosis 05/20/2014 10/05/2022 Abnormal magnetic resonance imaging study 05/20/2014 08/22/2022 Biliary colic 05/10/2014 08/22/2022 Lesion of liver 04/30/2014 08/22/2022 Decreased granulocyte count 01/14/2014 07/15/2024 Lymphopenia 03/17/2013 07/15/2024 Rash 03/25/2012 08/22/2022 Encounters Date Type Department Care Team Description 11/11/2024 11:30 AM CDT Therapy [facility] Speech Therapy [address] [place] [address] Oropharyngeal dysphagia (Primary Dx) 11/11/2024 10:53 AM CDT - 11/11/2024 11:59 PM CDT Hospital Encounter [facility] Radiology [address] [place] [address] Dysphagia, oropharyngeal Discharge Disposition: Discharge to home or self care 11/11/2024 Plan of Care Documentation [facility] Speech Therapy [address] [place] [address] 10/27/2024 SHOP/CHAP Subsequent Outreach [facility]NAGEMENT [address] [place] [address] Marina Le, RN 10/20/2024 SHOP/CHAP Subsequent Outreach [facility] [address] [place] [address] Marina Le, RN 10/20/2024 Documentation [facility] and [facility] Transplant Liver [address] [phone] [place] [address] Celsa Vargas 10/20/2024 Telephone [facility] Transplant Liver [address] Mail[address] [phone] [place] [address] Inés Lemus, TYRA 10/15/2024 SHOP/CHAP Subsequent Outreach [facility] [address] [place] [address] Marina Le, RN 10/14/2024 12:30 PM SOIL FERTILITY EXTENSION SPECIALIST Office Visit [facility] Endocrinology Metabolism and Lipid [address] [facility] 13th [place] [address] Sylvain Aguilera MD Type 2 diabetes mellitus without complication, unspecified whether halfway insulin use (HCC) (Primary Dx) 10/13/2024 11:40 AM SOIL FERTILITY EXTENSION SPECIALIST Lab [facility] [address] [place] [phone] LYONS (nonalcoholic steatohepatitis) 10/13/2024 8:30 AM SOIL FERTILITY EXTENSION SPECIALIST Office Visit [facility] Nephrology [address] [facility] 5th [place] [phone] Hypertension, unspecified type (Primary Dx); Stage 3b chronic kidney disease (HCC); Anemia in stage 3b chronic kidney disease (HCC) 10/13/2024 Telephone [facility] and [facility] Transplant Liver [address] [place] [address] Inés Lemus RN 10/13/2024 Telephone [facility] and [facility] Transplant Liver [address] [place] [address] Celsa Vargas 10/13/2024 Documentation [facility] Transplant Liver [address] [place] [address] Celsa Vargas 10/13/2024 Telephone [facility] Transplant Liver [address] [place] [address] Celsa Vargas 10/12/2024 11:45 AM SOIL FERTILITY EXTENSION SPECIALIST - 10/12/2024 11:59 PM SOIL FERTILITY EXTENSION SPECIALIST Hospital Encounter [facility] [address] [place] [address] ESRD (end stage renal disease) (HCC) Discharge Disposition: Discharge to home or self care 10/12/2024 Telephone [facility] Transplant Liver [address] Mail[address] [phone] [place] [address] Inés Lemus, RN 10/12/2024 SHOP/CHAP Subsequent Outreach [facility] [address] [place] [address] Marina Le, TYRA 10/09/2024 Telephone [facility] Transplant Liver [address] Mail[address] 86-76-104 [place] [address] Inés Lemus, TYRA 10/09/2024 Documentation [facility] Gastroenterology [address] [facility] 12th [place] [phone] Alexandra Issa RN 10/08/2024 4:00 PM SOIL FERTILITY EXTENSION SPECIALIST Office Visit [facility] Gastroenterology [address] [facility] [address], [address] [place] [address] Taiwo Vázquez MD Class 3 severe obesity due to excess calories with serious comorbidity and body mass index (BMI) of 40.0 to 44.9 in adult (HCC) (Primary Dx); 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NAGEMENT [address] [place] [address] Marina Le, TYRA 10/05/2024 Telephone [facility] Transplant Liver [address] [phone] [place] [address] Inés Lemus, TYRA 10/05/2024 Results Follow-Up [facility] Transplant Liver [address] Mailstop -[phone] [place] [address] Inés Lemus, TYRA 10/05/2024 Telephone [facility] Trans[facility] Liver [address] [phone] [place] [address] Inés Lemus, RN 10/05/2024 SHOP/CHAP Initial Outreach [facility] [address] [place] [phone] Marina Le, TYRA 10/05/2024 SHOP/CHAP Initial Eligibility Review [facility] [address] [place] [phone] Marina Le RN 09/29/2024 Documentation [facility] Transplant Liver [address] [place] [address] [address] Mailop [phone] [place] [address] Chelsea Barker RN 09/28/2024 Documentation [facility] Transplant Liver [address] [place] [address] [address] Mailop [phone] [place] [address] Chelsea Barker RN 09/24/2024 12:08 PM SOIL FERTILITY EXTENSION SPECIALIST - 10/02/2024 5:[address] [phone] Paxton Hawk MD Mudd, Peter Shine MD PhD Lexis, MD Sandra Michaels Alvin, MD Stephenson, Molina Moreno MD Gastrointestinal hemorrhage, unspecified gastrointestinal hemorrhage type (Primary Dx); Hepatic encephalopathy (HCC); Stage 3b chronic kidney disease (HCC); Dysphagia, oropharyngeal; Physical debility Discharge Disposition: Discharge to home or self care 09/24/2024 Telephone [facility] Trans[facility] Liver [address] [place] [address] [address] Mailstop [phone] [place] [address] Inés Lemus, TYRA 09/24/2024 Telephone [facility] Gastroenterology [address] [place] [address] Medical Office [address], [address] [place] [phone] Gregory Del Cid MD 09/21/2024 10:00 AM SOIL FERTILITY EXTENSION SPECIALIST - 09/21/2024 11:59 PM SOIL FERTILITY EXTENSION SPECIALIST Hospital Encounter [facility] [address] [place] [address] ESRD (end stage renal disease) (HCC) Discharge Disposition: Discharge to home or self care 09/15/2024 Documentation [facility] Gastroenterology [address] [facility] 12th [place] [address] [place] [address] Alexandra Issa, TYRA 09/14/2024 Telephone [facility] Transplant Liver [address] [phone] [place] [address] Inés Lemus, TYRA 09/07/2024 Orders Only [facility] Scanning, Provider 08/30/2024 Telephone [facility] Transplant Liver [address] Mail[address] [phone] [place] [address] Inés Lemus, TYRA 08/28/2024 Documentation [facility] Gastroenterology [address] [place] [address] Advanced Medicine 12th [place] [address] [place] [address] Alexandra Issa, TYRA 08/27/2024 1:40 PM [facility] Lab [facility] [address] [place] [address] LYONS (nonalcoholic steatohepatitis) 08/25/2024 Documentation [facility] Gastroenterology [address] [place] [address] Advanced Medicine [facility] [place] [address] [place] [address] Alexandra Issa, TYRA 08/25/2024 Telephone [facility] Transplant Liver [address] [phone] [place] [address] Inés Lemus, TYRA 08/25/2024 Documentation [facility] Gastroenterology [address] [place] [address] Advanced Medicine 12th [place] [address] [place] [address] Alexandra Issa, TYRA 08/24/2024 10:00 AM SOIL FERTILITY EXTENSION SPECIALIST - 08/24/2024 11:59 PM SOIL FERTILITY EXTENSION SPECIALIST Hospital Encounter [facility] [address] [place] [address] ESRD (end stage renal disease) (HCC) Discharge Disposition: Discharge to home or self care 08/24/2024 9:00 AM SOIL FERTILITY EXTENSION SPECIALIST Social Work [facility] Trans[facility] Center [address] [facility], 8th Floor, [place] [address] Ragini Garner LCSW 08/24/2024 Orders Only [facility] Scanning, Provider from Last 3 Months Immunizations Immunization Administration Dates Next Due Hep B Vaccine 01/22/2024,12/18/2023 Influenza, Quadrivalent, Spl it, Intramuscular 05/01/2019,05/26/2015 Influenza, Quadrivalent, Spl it, Preservative Free, Intramuscular 07/02/2023,04/29/2020,05/01/2019,05/09,05/08/2018,05/23/2017,05/17/2016 Influenza, Trivalent, IM (MDV) 04/28/2021,2013 Influenza, Trivalent, Preser vative Free, Intramuscular 05/29/2013 [employer] ([employer]) SARS-CoV-2 Vaccination 10/17/2020 Pneumococcal Conjugate PCV [...] ight ESOPHAGOGASTRODUODENOSCOPY BREAST BIOPSY 12/20/2021 Right COLONOSCOPY CATARACT EXTRACTION Medical History Medical History Date Comments 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 Family History Medical History Relation Name Comments Cancer Father Stuart Raphael Family hist ory of malignant neoplasm - (Added by TW Conv)/Family history of malignant neoplasm - (Added by TW Conv) Cancer Maternal Grandmother Ame Easton Fami ly history of malignant neoplasm - (Added by TW Conv)/Family history of malignant neoplasm - (Added by TW Conv) Diabetes Maternal Grandmother Ame Easton Fami ly history of diabetes mellitus - (Added by TW Conv)/Family history of diabetes mellitus - (Added by TW Conv) Allergy (severe) Sister Rosie Rendon Relation Name Status Comments Father Stuart Raphael Maternal Grandmother Ame Easton Sister Rosie Rendon Alive Social History Tobacco Use Types Packs/Day Years Used Date Smoking Tobacco: Former Cigarettes 0.5 51 1 970 - 2020 Smokeless Tobacco: Never Tobacco Cessation:Counseling Given: Not Answered [facility] [employer] Answer Date Recorded In the past 12 months has e [employer], gas, oil, or water [email or web address] threatened to shut off services in your [...] often do you attend chur ch or cheondoism services? Never 10/05/2024 Do you belong to any clubs o r organizations such as amish groups, unions, fraternal or athletic groups, or [...] any time in the past [address] [facility], were you homeless or living in a retirement (including now)? No 10/05/2024 Personal Safety Answer Date Recorded Have you ever been in or are you currently in a harmful physical or emotional relationship or is someone making you feel afraid or unsafe? 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 file Obstetrics History Last Filed Vital Signs Vital Sign [place] Time Taken Comments Blood Pressure 117/72 10/14/2024 12:14 PM SOIL FERTILITY EXTENSION SPECIALIST Pulse 84 10/14/2024 12:14 PM SOIL FERTILITY EXTENSION SPECIALIST Temperature 37.1 C (98.7 F) 10/14/2024 12:14 PM SOIL FERTILITY EXTENSION SPECIALIST Respiratory Rate 17 10/02/2024 2:45 PM SOIL FERTILITY EXTENSION SPECIALIST Oxygen Saturation 100% 10/08/2024 3:52 PM SOIL FERTILITY EXTENSION SPECIALIST Inhaled Oxygen Concentration - - Weight 118.4 kg (261 lb) 10/14/2024 12:14 PM SOIL FERTILITY EXTENSION SPECIALIST Height 170.2 cm (5' 7 ) 10/14/2024 12:14 PM SOIL FERTILITY EXTENSION SPECIALIST Body Mass Index 40.88 10/14/2024 12:14 PM SOIL FERTILITY EXTENSION SPECIALIST Plan of Treatment Upcoming Encounters Date Type Department Care Team (Late st Contact Info) Description 12/01/2024 9:45 AM CDT Hospital Encounter [facility] [place] [id number] [address] Lea Gallardo MD [address] [address] 12/01/2024 9:45 AM CDT - 12/01/2024 10:30 AM CDT Surgery [facility] [place] [id number] [address] [address] Lea Gallardo MD [address] [address] COLONOSCOPY Scheduled Procedures Name Priority Associated Diagnoses [...] 12/06/2021 Cervical Cancer Screening 04/28/2025 04/28/2024, eGFR 10/13/2025 10/13/2024, 09/13, 09/30/2024, Additional history exists Colon Cancer Screening-Colonoscopy 05/30/2032 [...] 11:46 AM CDT Dysphagia, oropharyngeal POCT GLUCOSE [id number] Routine 10/14/2024 12:20 PM SOIL FERTILITY EXTENSION SPECIALIST Type 2 diabetes mellitus without complication, 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 whether 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 insulin use (HCC) EGFR Routine 10/13/2024 10:40 AM SOIL FERTILITY EXTENSION SPECIALIST LYONS (nonalcoholic steatohepatitis) IMMATURE PLATELET FRACTION Routine 10/13/2024 10:40 AM SOIL FERTILITY EXTENSION SPECIALIST LYONS (nonalcoholic steatohepatitis) DIFFERENTIAL AUTO Routine 10/13/2024 10:40 AM SOIL FERTILITY EXTENSION SPECIALIST LYONS (nonalcoholic steatohepatitis) CBC WITH AUTO DIFFERENTIAL Routine 10/13/2024 10:40 AM SOIL FERTILITY EXTENSION SPECIALIST LYONS (nonalcoholic steatohepatitis) PROTIME-INR Routine 10/13/2024 10:40 AM SOIL FERTILITY EXTENSION SPECIALIST LYONS (nonalcoholic steatohepatitis) COMPREHENSIVE METABOLIC PANEL Routine 10/13/2024 10:40 AM SOIL FERTILITY EXTENSION SPECIALIST LYONS (nonalcoholic steatohepatitis) HLA ANTIBODY SCREEN BY PRA OR SAB PER SCHEDULE (CLASS I AND CLASS II) Routine 10/12/2024 11:45 AM SOIL FERTILITY EXTENSION SPECIALIST ESRD (end stage renal disease) (HCC) PROTIME-INR Routine 10/05/2024 COMPREHENSIVE METABOLIC PANEL Routine 10/05/2024 POCT GLUCOSE DEVICE Routine 10/02/2024 4 :21 PM SOIL FERTILITY EXTENSION SPECIALIST SHORER EVALUATE AND TREAT FIBEROPTIC ENDOSCOPIC SWALLOW Routine 10/02/2024 1:07 PM SOIL FERTILITY EXTENSION SPECIALIST POCT GLUCOSE DEVICE Routine 10/02/2024 11:33 AM SOIL FERTILITY EXTENSION SPECIALIST POCT GLUCOSE DEVICE Routine 10/02/2024 7 :14 AM SOIL FERTILITY EXTENSION SPECIALIST POCT GLUCOSE DEVICE Routine 10/02/2024 4 :19 AM SOIL FERTILITY EXTENSION SPECIALIST EGFR Routine 10/01/2024 9:18 PM SOIL FERTILITY EXTENSION SPECIALIST MAGNESIUM Routine 10/01/2024 9:18 PM SOIL FERTILITY EXTENSION SPECIALIST PHOSPHORUS Routine 10/01/2024 9:18 PM SOIL FERTILITY EXTENSION SPECIALIST PROTIME-INR Routine 10/01/2024 9:18 PM SOIL FERTILITY EXTENSION SPECIALIST COMPREHENSIVE METABOLIC PANEL Routine 10/01/2024 9:18 PM SOIL FERTILITY EXTENSION SPECIALIST POCT GLUCOSE DEVICE Routine 10/01/2024 7 :35 PM SOIL FERTILITY EXTENSION SPECIALIST POCT GLUCOSE DEVICE Routine 10/01/2024 7 :34 PM SOIL FERTILITY EXTENSION SPECIALIST POCT GLUCOSE DEVICE Routine 10/01/2024 5 :12 PM SOIL FERTILITY EXTENSION SPECIALIST POCT GLUCOSE DEVICE Routine 10/01/2024 11:45 AM SOIL FERTILITY EXTENSION SPECIALIST POCT GLUCOSE DEVICE Routine 10/01/2024 7 :45 AM SOIL FERTILITY EXTENSION SPECIALIST EGFR Routine 09/30/2024 9:22 PM SOIL FERTILITY EXTENSION SPECIALIST DIFFERENTIAL AUTO Timed 09/30/2024 9:2 2 PM [employer] EXTENSION SPECIALIST VITAMIN D 25 HYDROXY Timed 09/30/2024 9:22 PM [employer]IL [employer]ILITY EXTENSION SPECIALIST PTH Timed 09/30/2024 9:22 PM [employer]IL F[employer]ILITY EXTENSION SPECIALIST CBC WITH AUTO DIFFERENTIAL Timed 09/30/2024 9:22 PM [employer]IL [employer]ILITY EXTENSION SPECIALIST MAGNESIUM Routine 09/30/2024 9:22 PM [employer]IL [employer]ILITY EXTENSION SPECIALIST PHOSPHORUS Routine 09/30/2024 9:22 PM SOIL FERTILITY EXTENSION SPECIALIST PROTIME-INR Routine 09/30/2024 9:22 PM [employer]ILITY EXTENSION SPECIALIST COMPREHENSIVE METABOLIC PANEL Routine 09/30/2024 9:22 PM [employer]IL F[employer]ILITY EXTENSION SPECIALIST POCT GLUCOSE DEVICE Routine 09/30/2024 7 :58 PM [employer]ILITY EXTENSION SPECIALIST POCT GLUCOSE DEVICE Routine 09/30/2024 4 :20 PM [employer] F[employer]ILITY EXTENSION SPECIALIST POCT GLUCOSE DEVICE Routine 09/30/2024 11:43 AM SOIL F[employer]ILITY EXTENSION SPECIALIST POCT GLUCOSE DEVICE Routine 09/30/2024 7 :54 AM [employer] F[employer]ILITY EXTENSION SPECIALIST POCT GLUCOSE DEVICE Routine 09/30/2024 7 :36 AM [employer] F[employer]ILITY EXTENSION SPECIALIST POCT GLUCOSE DEVICE Routine 09/30/2024 12:28 AM [employer]IL F[employer]ILITY EXTENSION SPECIALIST EGFR Routine 09/29/2024 8:49 PM [employer] F[employer]ILITY EXTENSION SPECIALIST MAGNESIUM Routine 09/29/2024 8:49 PM [employer] F[employer]ILITY EXTENSION SPECIALIST PHOSPHORUS Routine 09/29/2024 8:49 PM SOIL FERTILITY EXTENSION SPECIALIST PROTIME-INR Routine 09/29/2024 8:49 PM [employer]ILITY EXTENSION SPECIALIST COMPREHENSIVE METABOLIC PANEL Routine 09/29/2024 8:49 PM SO[employer] FERTILITY EXTENSION SPECIALIST POCT GLUCOSE DEVICE Routine 09/29/2024 8 :08 PM SOIL F[employer]ILITY EXTENSION SPECIALIST POCT GLUCOSE DEVICE Routine 09/29/2024 4 :50 PM [employer] F[employer]ILITY EXTENSION SPECIALIST POCT GLUCOSE DEVICE Routine 09/29/2024 11:35 AM SOIL FERTILITY EXTENSION SPECIALIST SHORER EVALUATE AND TREAT FIBEROPTIC ENDOSCOPIC SWALLOW Routine 09/29/2024 10:55 AM [employer]ILITY EXTENSION SPECIALIST SHORER EVALUATE AND TREAT VIDEOFLUOROSCOPIC SWALLOW STUDY Routine 09/29/2024 10:55 AM [employer]ILITY EXTENSION SPECIALIST POCT GLUCOSE DEVICE Routine 09/29/2024 7 :34 AM [employer] F[employer]ILITY EXTENSION SPECIALIST POCT GLUCOSE DEVICE Routine 09/29/2024 4 :49 AM [employer]ILITY EXTENSION SPECIALIST POCT GLUCOSE DEVICE Routine 09/29/2024 12:25 AM [employer]ILITY EXTENSION SPECIALIST HEMOGLOBIN A1C Routine 09/28/2024 9:17 PM [employer] EXTENSION SPECIALIST EGFR Routine 09/28/2024 9:17 PM [employer]ILITY EXTENSION SPECIALIST DIFFERENTIAL AUTO Routine 09/28/2024 9:1 7 PM [employer]ILITY EXTENSION SPECIALIST MAGNESIUM Routine 09/28/2024 9:17 PM [employer]ILITY EXTENSION SPECIALIST PHOSPHORUS Routine 09/28/2024 9:17 PM [employer]IL F[employer]ILITY EXTENSION SPECIALIST PROTIME-INR Routine 09/28/2024 9:17 PM [employer]ILITY EXTENSION SPECIALIST CBC WITH AUTO DIFFERENTIAL Routine 09/28/2024 9:17 PM [employer]ILITY EXTENSION SPECIALIST COMPREHENSIVE METABOLIC PANEL Routine 09/28/2024 9:17 PM [employer]ILITY EXTENSION SPECIALIST POCT GLUCOSE DEVICE Routine 09/28/2024 7 :57 PM [employer] F[employer]ILITY EXTENSION SPECIALIST POCT GLUCOSE DEVICE Routine 09/28/2024 4 :31 PM SO[employer] F[employer]ILITY EXTENSION SPECIALIST POCT GLUCOSE DEVICE Routine 09/28/2024 11:23 AM [employer]ILITY EXTENSION SPECIALIST POCT GLUCOSE DEVICE Routine 09/28/2024 8 :01 AM [employer] F[employer]ILITY EXTENSION SPECIALIST POCT GLUCOSE DEVICE Routine 09/28/2024 4 :52 AM [employer]ILITY EXTENSION SPECIALIST POCT GLUCOSE DEVICE Routine 09/28/2024 12:29 AM [employer]ILITY EXTENSION SPECIALIST EGFR Routine 09/28/2024 12:06 AM [employer]ILITY EXTENSION SPECIALIST DIFFERENTIAL AUTO Routine 09/28/2024 12:06 AM [employer]ILITY EXTENSION SPECIALIST MAGNESIUM Routine 09/28/2024 12:06 AM [employer]ILITY EXTENSION SPECIALIST PHOSPHORUS Routine 09/28/2024 12:06 AM [employer] F[employer]ILITY EXTENSION SPECIALIST PROTIME-INR Routine 09/28/2024 12:06 AM [employer]ILITY EXTENSION SPECIALIST CBC WITH AUTO DIFFERENTIAL Routine 09/28/2024 12:06 AM [employer] F[employer]ILITY EXTENSION SPECIALIST COMPREHENSIVE METABOLIC PANEL Routine 09/28/2024 12:06 AM SO[employer] F[employer]ILITY EXTENSION SPECIALIST POCT GLUCOSE DEVICE Routine 09/27/2024 11:55 PM SOIL FERTILITY EXTENSION SPECIALIST POCT GLUCOSE DEVICE Routine 09/27/2024 8 :03 PM SOIL FERTILITY EXTENSION SPECIALIST POCT GLUCOSE DEVICE Routine 09/27/2024 4 :26 PM SOIL FERTILITY EXTENSION SPECIALIST POCT GLUCOSE DEVICE Routine 09/27/2024 11:49 AM SO[employer] FERTILITY EXTENSION SPECIALIST POCT GLUCOSE DEVICE Routine 09/27/2024 8 :05 AM SOIL FERTILITY EXTENSION SPECIALIST POCT GLUCOSE DEVICE Routine 09/27/2024 4 :24 AM SOIL FERTILITY EXTENSION SPECIALIST POCT GLUCOSE DEVICE Routine 09/26/2024 11:20 PM SOIL F[employer]ILITY EXTENSION SPECIALIST EGFR Routine 09/26/2024 9:23 PM SOIL F[employer]ILITY EXTENSION SPECIALIST DIFFERENTIAL AUTO Routine 09/26/2024 9:2 3 PM [employer] F[employer]ILITY EXTENSION SPECIALIST MAGNESIUM Routine 09/26/2024 9:23 PM [employer] F[employer]ILITY EXTENSION SPECIALIST PHOSPHORUS Routine 09/26/2024 9:23 PM SOIL FERTILITY EXTENSION SPECIALIST PROTIME-INR Routine 09/26/2024 9:23 PM [employer]ILITY EXTENSION SPECIALIST CBC WITH AUTO DIFFERENTIAL Routine 09/26/2024 9:23 PM [employer]ILITY EXTENSION SPECIALIST COMPREHENSIVE METABOLIC PANEL Routine 09/26/2024 9:23 PM SOIL [employer]ILITY EXTENSION SPECIALIST POCT GLUCOSE DEVICE Routine 09/26/2024 7 :53 PM SOIL FERTILITY EXTENSION SPECIALIST POCT GLUCOSE DEVICE Routine 09/26/2024 4 :37 PM SOIL F[employer]ILITY EXTENSION SPECIALIST EGFR Timed 09/26/2024 3:40 PM SO[employer]ILITY EXTENSION SPECIALIST BASIC METABOLIC PANEL Timed 09/26/2024 3:40 PM SO[employer]ILITY EXTENSION SPECIALIST POCT GLUCOSE DEVICE Routine 09/26/2024 11:16 AM SO[employer]ILITY EXTENSION SPECIALIST POCT GLUCOSE DEVICE Routine 09/26/2024 9 :40 AM SOIL F[employer]ILITY EXTENSION SPECIALIST LACTATE Timed 09/26/2024 8:16 AM SOIL F[employer]ILITY EXTENSION SPECIALIST POCT GLUCOSE DEVICE Routine 09/26/2024 7 :45 AM [employer]ILITY EXTENSION SPECIALIST POCT GLUCOSE DEVICE Routine 09/26/2024 4 :26 AM SO[employer] EXT[employer]ION [employer]IST CT ABDOMEN PELVIS WO CONTRAST IP Routine 09/26/2024 3:17 AM [employer]ILITY EXTENSION SPECIALIST LACTATE Timed 09/26/2024 12:44 AM [employer]ILITY EXTENSION SPECIALIST POCT GLUCOSE DEVICE Routine 09/26/2024 12:08 AM [employer]ILITY EXTENSION SPECIALIST EGFR Routine 09/25/2024 10:48 PM [employer]ILITY EXTENSION SPECIALIST DIFFERENTIAL AUTO Routine 09/25/2024 10:48 PM [employer]ILITY EXTENSION SPECIALIST PROTIME-INR Routine 09/25/2024 10:48 PM [employer]ILITY EXTENSION SPECIALIST CBC WITH AUTO DIFFERENTIAL Routine 09/25/2024 10:48 PM [employer]ILITY EXTENSION SPECIALIST COMPREHENSIVE METABOLIC PANEL Routine 09/25/2024 10:48 PM SO[employer]ILITY EXTENSION SPECIALIST POCT GLUCOSE DEVICE Routine 09/25/2024 8 :27 PM SO[employer]ILITY EXTENSION SPECIALIST POCT GLUCOSE DEVICE Routine 09/25/2024 6 :12 PM SO[employer]ILITY EXTENSION SPECIALIST POCT GLUCOSE DEVICE Routine 09/25/2024 4 :12 PM [employer]ILITY EXTENSION SPECIALIST CRITICAL RESULT CALLBACK CHEMISTRY Timed 09/25/2024 3:24 PM [employer]ILITY EXTENSION SPECIALIST LACTATE Timed 09/25/2024 3:24 PM [employer]ILITY EXTENSION SPECIALIST SODIUM, URINE, RANDOM Routine 09/25/2024 3:24 PM [employer]IL [employer]ILITY EXTENSION SPECIALIST URINALYSIS AND REFLEX TO MICROSCOPIC AND CULTURE STAT 09/25/2024 3:24 PM [employer]ILITY EXTENSION SPECIALIST POCT GLUCOSE DEVICE Routine 09/25/2024 2 :41 PM [employer] F[employer]ILITY EXTENSION SPECIALIST POCT GLUCOSE DEVICE Routine 09/25/2024 12:32 PM SOIL F[employer]ILITY EXTENSION SPECIALIST TROPONIN I HIGH-SENSITIVITY 4-HOUR Timed 09/25/2024 11:38 AM SOIL FERTILITY EXTENSION SPECIALIST POCT GLUCOSE DEVICE Routine 09/25/2024 11:14 AM [employer]ILITY EXTENSION SPECIALIST CRITICAL RESULT CALLBACK CARDIO CHEM Timed 09/25/2024 9:51 AM SOIL F[employer]ILITY EXTENSION SPECIALIST TROPONIN I HIGH-SENSITIVITY 2-HOUR Timed 09/25/2024 9:51 AM SOIL FERTILITY EXTENSION SPECIALIST POCT GLUCOSE DEVICE Routine 09/25/2024 9 :19 AM SOIL FERTILITY EXTENSION SPECIALIST TROPONIN I HIGH-SENSITIVITY SERIES (BASELINE, 2HR, 4HR, 6HR) Timed 09/25/2024 7:44 AM SOIL FERTILITY EXTENSION SPECIALIST LACTATE Timed 09/25/2024 7:44 AM SOIL FERTILITY EXTENSION SPECIALIST POCT GLUCOSE DEVICE Routine 09/25/2024 7 :32 AM SOIL FERTILITY EXTENSION SPECIALIST POCT GLUCOSE DEVICE Routine 09/25/2024 4 :12 AM SO[employer] F[employer]ILITY EXTENSION SPECIALIST POCT GLUCOSE DEVICE Routine 09/25/2024 2 :52 AM [employer]ILITY EXTENSION SPECIALIST XR ABDOMEN AP 1 VIEW IP Routine 09/25/2024 1:32 AM [employer]ILITY EXTENSION SPECIALIST POCT GLUCOSE DEVICE Routine 09/25/2024 12:11 AM SO[employer] F[employer]ILITY EXTENSION SPECIALIST MAGNESIUM Routine 09/24/2024 11:56 PM SO[employer]ILITY EXTENSION SPECIALIST EGFR Routine 09/24/2024 11:56 PM [employer] F[employer]ILITY EXTENSION SPECIALIST DIFFERENTIAL AUTO Routine 09/24/2024 11:56 PM SOIL FERTILITY EXTENSION SPECIALIST PROTIME-INR Routine 09/24/2024 11:56 PM SOIL F[employer]ILITY EXTENSION SPECIALIST [id number], TUMOR MARKER Timed 09/24/2024 11:56 PM SOIL F[employer]ILITY EXTENSION SPECIALIST CBC WITH AUTO DIFFERENTIAL Routine 09/24/2024 11:56 PM SOIL F[employer]ILITY EXTENSION SPECIALIST PHOSPHORUS Routine 09/24/2024 11:56 PM SOIL FERTILITY EXTENSION SPECIALIST COMPREHENSIVE METABOLIC PANEL Routine 09/24/2024 11:56 PM [employer] F[employer]ILITY EXTENSION SPECIALIST TROPONIN I HIGH-SENSITIVITY 6-HOUR Timed 09/24/2024 11:56 PM [employer]ILITY EXTENSION SPECIALIST CRITICAL RESULT CALLBACK CHEMISTRY Timed 09/24/2024 11:55 PM SO[employer] F[employer]ILITY EXTENSION SPECIALIST SEPSIS LACTATE WITH REFLEX Timed 09/24/2024 11:55 PM SOIL FERTILITY EXTENSION SPECIALIST POCT GLUCOSE DEVICE Routine 09/24/2024 11:08 PM SOIL F[employer]ILITY EXTENSION SPECIALIST XR CHEST 1 VIEW ED Urgent/IP Urgent 09/24/2024 11:02 PM [employer]IL [employer]ILITY EXTENSION SPECIALIST US LIVER DOPPLER COMPLETE IP Routine 09/24/2024 9:07 PM SOIL F[employer]ILITY EXTENSION SPECIALIST POCT GLUCOSE DEVICE Routine 09/24/2024 8 :08 PM SOIL F[employer]ILITY EXTENSION SPECIALIST RI CRITICAL CARE ILL/INJURED PATIENT INIT 30-74 MIN Routine 09/24/2024 4:23 PM [employer]ILITY EXTENSION SPECIALIST CRITICAL RESULT CALLBACK CHEMISTRY Timed 09/24/2024 2:37 PM [employer]ILITY EXTENSION SPECIALIST SEPSIS LACTATE WITH REFLEX Timed 09/24/2024 2:37 PM [employer] F[employer]ILITY EXTENSION SPECIALIST TROPONIN I HIGH-SENSITIVITY 2-HOUR Timed 09/24/2024 2:36 PM [employer]ILITY EXTENSION SPECIALIST BLOOD CULTURE STAT 09/24/2024 2:36 PM [employer]ILITY EXTENSION SPECIALIST RESPIRATORY PATHOGEN PANEL STAT 09/24/2024 1:39 PM [employer]ILITY EXTENSION SPECIALIST BLOOD CULTURE STAT 09/24/2024 1:39 PM [employer]ILITY EXTENSION SPECIALIST XR CHEST 1 VIEW ED 09/24/2024 12:59 PM [employer]ILITY EXTENSION SPECIALIST POCT KETONE, BLOOD Routine 09/24/2024 12:40 PM SO[employer]ILITY EXTENSION SPECIALIST POCT GLUCOSE DEVICE Routine 09/24/2024 12:37 PM SOIL [employer]ILITY EXTENSION SPECIALIST EGFR STAT 09/24/2024 12:35 PM SO[employer] F[employer]ILITY EXTENSION SPECIALIST DIFFERENTIAL AUTO STAT 09/24/2024 12:35 PM SO[employer] F[employer]ILITY EXTENSION SPECIALIST CRITICAL RESULT CALLBACK CHEMISTRY STAT 09/24/2024 12:35 PM SOIL F[employer]ILITY EXTENSION SPECIALIST AMMONIA STAT 09/24/2024 12:35 PM SOIL F[employer]ILITY EXTENSION SPECIALIST TYPE AND SCREEN STAT 09/24/2024 12:35 PM SOIL F[employer]ILITY EXTENSION SPECIALIST APTT STAT 09/24/2024 12:35 PM SOIL FERTILITY EXTENSION SPECIALIST PROTIME-INR STAT 09/24/2024 12:35 PM SOIL F[employer]ILITY EXTENSION SPECIALIST TROPONIN I HIGH-SENSITIVITY SERIES (BASELINE, 2HR, 4HR, 6HR) STAT 09/24/2024 12:35 PM [employer]ILITY EXTENSION SPECIALIST SEPSIS LACTATE WITH REFLEX STAT 09/24/2024 12:35 PM [employer]IL F[employer]ILITY EXTENSION SPECIALIST HEPATIC FUNCTION PANEL STAT 12:35 PM [employer]ILITY EXTENSION SPECIALIST BASIC METABOLIC PANEL STAT 09/24/2024 12:35 PM [employer]IL [employer]ILITY EXTENSION SPECIALIST CBC WITH AUTO DIFFERENTIAL STAT 09/24/2024 12:35 PM [employer]ILITY EXTENSION SPECIALIST BLOOD GAS, VENOUS STAT 09/24/2024 12:35 PM SOIL [employer]ILITY EXTENSION SPECIALIST NEURO CT OUTSIDE CONSULT Routine 09/24/2024 12:33 PM [employer] F[employer]ILITY EXTENSION SPECIALIST XR TRANSFER OF OUTSIDE FILMS Routine 09/24/2024 12:28 PM [employer]ILITY EXTENSION SPECIALIST HLA ANTIBODY SCREEN - SAB (CLASS I AND CLASS II) Routine 09/21/2024 1:00 PM [employer]ILITY EXTENSION SPECIALIST ESRD (end stage renal disease) (HCC) HLA ANTIBODY SCREEN BY PRA OR SAB PER SCHEDULE (CLASS I AND CLASS II) Routine 09/21/2024 1:00 PM [employer]ILITY EXTENSION SPECIALIST ESRD (end stage renal disease) (HCC) SCAN - LABS 09/07/2024 EGFR Routine 08/27/2024 1:35 PM SOIL FERTILITY EXTENSION SPECIALIST LYONS (nonalcoholic steatohepatitis) COMPREHENSIVE METABOLIC PANEL Routine 08/27/2024 1:35 PM SO[employer] F[employer]ILITY EXTENSION SPECIALIST LYONS (nonalcoholic steatohepatitis) PROTIME-INR Routine 08/27/2024 1:35 PM [employer]IL FERTILITY EXTENSION SPECIALIST LYONS (nonalcoholic steatohepatitis) HLA ANTIBODY SCREEN BY PRA OR SAB PER SCHEDULE (CLASS I AND CLASS II) Routine 08/24/2024 10:00 AM [employer]IL [employer]ILITY EXTENSION SPECIALIST ESRD (end stage renal disease) (HCC) SCAN - LABS 08/24/2024 PAP AND HIGH RISK HPV, REFLEX TO GENOTYPING Routine 04/28/2024 10:41 AM CDT SCREENING MAMMOGRAM BILATERAL W PAL IP Routine 04/27/2024 1:55 PM CDT LIPID PANEL Routine 04/22/2024 12:58 AM CDT HEPATITIS C ANTIBODY Routine 06/16/2023 6:09 AM [employer]IL [employer]ILITY EXTENSION SPECIALIST COLONOSCOPY 05/30/2022 9:28 AM CDT ALBUMIN CREATININE RATIO, URINE Routine 03/01/2021 2:45 PM CDT Type 2 diabetes mellitus without complication, unspecified whether 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 Dictated by: Jsese Hardy MD The radiology attending physician has [...] Jenkins M.D. Molina Dsouza MD IMG FLUOROSCOPY RI OCEDURES Final Result * POCT glucose (10/14/2024 12:20 PM SOIL [employer]ILITY EXTENSION SPECIALIST) Glucose Blood, POC 235 mg/dL Blood 10/14/2024 12:2 0 PM [employer]ILITY EXTENSION SPECIALIST Sylvain Aguilera MD POINT OF CARE TEST ORDERABLES Final Result * Immature platelet fraction (10/13/2024 10:40 AM SOIL FERTILITY EXTENSION SPECIALIST) IPF 4.0 1.6 - 10.1 % Blood 10/13/2024 10:4 0 AM [employer]ILITY EXTENSION SPECIALIST 10/13/2024 11:29 AM SOIL FERTILITY EXTENSION SPECIALIST Molina Charles MD LAB BLOOD ORDERABLES Final Result [facility] [place] [address] * (ABNORMAL) eGFR (10/13/2024 10:40 AM SOIL [employer]ILITY EXTENSION SPECIALIST) eGFR 50(L) >=60 mL/min/1. 73 m2 Comment: [...] reviewed 2021. Blood 10/13/2024 10:4 0 AM SOIL [employer]ILITY EXTENSION SPECIALIST 10/13/2024 11:41 AM SOIL FERTILITY EXTENSION SPECIALIST us Molina Charles MD LAB BLOOD ORDERABLES Final Result [facility] [place] [address] * (ABNORMAL) Differential, auto (10/13/2024 10:40 AM SOIL [employer]ILITY EXTENSION SPECIALIST) Neutrophil abs 1.9 1.5 - 6.5 K/cumm Imm gran abs 0.0 0.0 - 0.1 K/cumm [facility] Lymphocyte abs 0.6(L) 0.8 - 3.3 K/cumm [facility] Monocyte abs 0.4 0.2 - 0.8 K/cumm [facility] Eosinophil abs 0.3 0.0 - 0.5 K/cumm [facility] Basophil abs 0.0 0.0 - 0.1 K/cumm [facility] Neutrophil pct 59.5 % [facility] Comment: Interpretive Data Percent cell count reference ranges are not reported, since discordance with absolute values may lead to misinterpretation of CBC data. Current Interpretive Data was last revised on 2017. Imm gran pct 0.3 % [facility] Comment: Interpretive Data Percent cell count reference ranges are not reported, since discordance with absolute values may lead to misinterpretation of CBC data. Current Interpretive Data was last revised on 2017. Lymphocyte pct 19.3 % [facility] Comment: Interpretive Data Percent cell count reference ranges are not reported, since discordance with absolute values may lead to misinterpretation of CBC data. Current Interpretive Data was last revised on 2017. Monocyte pct 11.9 % [facility] Comment: Interpretive Data Percent cell count reference ranges are not reported, since discordance with absolute values may lead to misinterpretation of CBC data. Current Interpretive Data was last revised on 2017. Eosinophil pct 8.4 % [facility] Comment: Interpretive Data Percent cell count reference ranges are not reported, since discordance with absolute values may lead to misinterpretation of CBC data. Current Interpretive Data was last revised on 2017. Basophil pct 0.6 % [facility] Comment: Interpretive Data Percent cell count reference ranges are not reported, since discordance with absolute values may lead to misinterpretation of CBC data. Current Interpretive Data was last revised on 2017. Blood 10/13/2024 10:4 0 AM [employer]ILITY EXTENSION SPECIALIST 10/13/2024 11:21 AM SOIL F[employer]ILITY EXTENSION SPECIALIST us Molina Charles MD LAB BLOOD ORDERABLES Final Result [facility] [place] [address] * (ABNORMAL) CBC with auto differential (10/13/2024 10:40 AM SOIL [employer]ILITY EXTENSION SPECIALIST) WBC 3.1(L) 3.8 - 9.9 K/cumm Hgb 9.6(L) 11.9 - 15.5 g/dL [facility] Hct 29.5(L) 35.6 - 45.5 % [facility] Plt 46(C) 150 - 400 K/cumm [facility] Comment:No clot detected in sample. JOSEPH SOLER. Critical result called to and read back by JOSEPH SOLER on 10 13 2024 at 1157 to Beth Nuñez. MPV 11.6 9.1 - 12.3 fL [facility] RBC 3.02(L) 3.90 - 5.20 M/cumm [facility] MCV 97.7(H) 81.3 - 96.4 fL [facility] MCH 31.8 27.1 - 33.3 pg [facility] MCHC 32.5 32.3 - 35.7 g/dL [facility] RDW CV 15.6(H) 11.1 - 14.9 % [facility] RDW SD 55.7(H) 35.7 - 48.1 fL [facility] NRBC abs 0.00 0.00 - 0.01 K/cumm [facility] Blood 10/13/2024 10:4 0 AM [employer]ILITY EXTENSION SPECIALIST 10/13/2024 11:21 AM [employer]IL F[employer]ILITY EXTENSION SPECIALIST Molina Charles MD LAB BLOOD ORDERABLES Final Result [facility] [place] [address] * (ABNORMAL) Protime-INR (10/13/2024 10:40 AM SOIL [employer]ILITY EXTENSION SPECIALIST) PT 15.5(H) 9.7 - 13.0 sec INR 1.42(H) 0.90 - 1.20 [facility] Comment: Interpretive data Oral anticoagulant therapeutic ranges: Venous thromboembolism prophylaxis or treatment: 2.0-3.0 CARDIOLOGY Standard range: 2.0-3.0 High-intensity range: 2.5-3.5 Refer to indication-specific guidelines for appropriate target ranges for prosthetic heart valve replacement. Current interpretive data was last revised on 2019. Blood 10/13/2024 10:4 0 AM SOIL [employer]ILITY EXTENSION SPECIALIST 10/13/2024 11:21 AM SOIL FERTILITY EXTENSION SPECIALIST us Molina Charles MD LAB BLOOD ORDERABLES Final Result [facility] [place] [address] * (ABNORMAL) Comprehensive metabolic panel (10/13/2024 10:40 AM SOIL FERTILITY EXTENSION SPECIALIST) Sodium 139 135 - 145 mmol/L Potassium, pl 4.2 3.3 - 4.9 mmol/L [facility] Chloride 101 97 - 110 mmol/L [facility] CO2 29 22 - 32 mmol/L [facility] Anion gap 9 2 - 15 mmol/L [facility] BUN 18 6 - 25 mg/dL [facility] Creatinine 1.22(H) 0.60 - 1.10 mg/dL [facility] Glucose 292(H) 70 - 199 mg/dL [facility] Comment: Interpretive Data Fasting glucose >/= [...] Calcium 9.2 8.5 - 10.3 mg/dL [facility] Bilirubin, total 2.5(H) 0.1 - 1.2 mg/dL [facility] Protein, pl 5.9(L) 6.5 - 8.5 g/dL [facility] Albumin 3.4(L) 3.5 - 5.0 g/dL [facility] Alk phos 91 40 - 130 Units/L [facility] ALT 33 7 - 45 Units/L [facility] AST 40 10 - 45 Units/L [facility] Blood 10/13/2024 10:4 0 AM [employer]IL [employer]ILITY EXTENSION SPECIALIST 10/13/2024 11:21 AM SOIL FERTILITY EXTENSION SPECIALIST Molina Charles MD LAB BLOOD ORDERABLES Final Result Performing Organization Address [facility] Co de Phone Number [facility] Department [place] [address] * HLA Antibody Screen by PRA or SAB per Schedule (Class I and Class II) (10/12/2024 11:45 AM SOIL FERTILITY EXTENSION SPECIALIST) Blood 10/12/2024 11:4 5 AM SOIL FERTILITY EXTENSION SPECIALIST Narrative [facility] - SOIL F[employer]ILITY EXTENSION SPECIALIST Sample received in lab and stored. No testing performed at this time. Timothy Pardo MD LAB BLOOD ORDERABL ES Final Result Performing Organization Address [facility] Co de Phone Number [facility] * (ABNORMAL) Protime-INR (10/05/2024) SCRIBED PT 15.1(A) 9.50 - 12.1 sec TXP NO LAB FOUND SCRIBED INR 1.4(A) 0.9 - 1.1 sec TXP NO LAB FOUND Blood 10/05/2024 Brian Biggs MD LAB BLOOD ORDERABLES Edit ed Result - Final Performing Organization Address [facility] Co de Phone Number TXP NO LAB FOUND * (ABNORMAL) Comprehensive [...] NO LAB FOUND Blood 10/05/2024 Historical Provider MD LAB BLOOD ORDERABLES Edit ed Result - Final TX NO LAB FOUND * (ABNORMAL) POCT glucose (10/02/2024 4:21 PM SOIL FERTILITY EXTENSION SPECIALIST) [facility] Glucose, POC 407(H) 70 - 199 mg/dL Comment:Glu2: RN/MD Notified Glucose comment 1 Glu2: RN/MD Notified [facility] Blood 10/02/2024 4:21 PM SOIL FERTILITY EXTENSION SPECIALIST 10/02/2024 4:21 PM SOIL FERTILITY EXTENSION SPECIALIST Molina Dsouza MD LAB POCT ORDERABLE S - DEVICE Final Result [facility] [place] [address] * SHORER Evaluate and Treat (FEES) (10/02/2024 1:07 PM SOIL FERTILITY EXTENSION SPECIALIST) Narrative [facility] - 10/02/2024 1:07 PM SOIL F[employer]ILITY EXTENSION SPECIALIST Sondra Dumont SLP 10/02/2024 3:22 PM Speech-Language Pathology: Flexible Endoscopic Evaluation of Swallowing (FEES) HPI/PMH HPI/PMH: 63 y.o. F with hx of MASH cirrhosis and CKD currently listed for a simultaneous liver-kidney transplant (SLK), HTN, T2DM, atrial flutter, and ERNESTINE who presented to [facility] 09/24 as an OSH transfer for AMS. Pt was reportedly at baseline until 0400 09/24 when EMS was called to her home as patient was found confused by her . Pt was initially brought to OSH ED, transferred to [facility] ED as she is an active [...] Diet: regular diet/thin liquid General Information Nael Cardoza 10/02/24 SHORER Received On: 10/02/24 General Observations: Pt seen [...] deficits Secretions: Minimal Consistencies Administered: Thin liquids, [place] thick liquids, Honey thick liquids, Purees, Solids Thin Liquids: Laryngeal Penetration: Present Aspiration Present: Yes Timing: Before, During Amount: Moderate Response to aspiration: None Cough: Non-productive Unsuccessful Modifications: Chin tuck, Cough, Repeat swallow Penetration Aspiration Scale-Thin: 8-Material enters the airway, passes below the vocal folds and no effort is made to eject Edwards Scale-Vallecular Residue-Thin Liquids: Moderate Zari Scale-Pyriform Sinus Residue-Thin Liquids: Mild [place] Thickened Liquids: Laryngeal Penetration: Present Aspiration Present: Yes Timing: Before, During Amount: Trace Response to aspiration: None Unsuccessful Modifications: Repeat swallow, Cough, Chin tuck Penetration Aspiration Scale-[place]: 8-Material enters the airway, passes below the vocal folds and no effort is made to eject Edwards Scale-Vallecular Residue-[place] Thickened Liquids: Mild Zari Scale-Pyriform Sinus Residue-[place] Thickened Liquids: None Honey Thickened Liquids: Laryngeal Penetration: None Aspiration Present: No Penetration Aspiration Scale-Honey: 1-Material does not enter airway Edwards Scale-Vallecular Residue-Honey Thickened Liquids: None Zari Scale-Pyriform Sinus Residue-Honey Thickened Liquids: None Purees: Laryngeal Penetration: None Aspiration Present: No Penetration Aspiration Scale-Puree: 1-Material does not enter airway Zari Scale-Vallecular Residue-Puree: None Edwards Scale-Pyriform Sinus Residue-Puree: Trace Solids: Laryngeal Penetration: [...] treatment goals and details, if indicated. Plan SHORER Frequency of Services during current admission: 3-5x/wk SHORER Recommendation (Add'l Services): Inpatient Rehab Facility Next Visit Plan:treatment/therapy Additional Referrals: PT/OT Discharge Summary Statement If this is the last swallow therapy visit, this serves as the discharge summary. us Molina Dsouza MD SHORER ORDERABLES Fi nal Result Performing Organization Address [facility] Phone Number [place] * (ABNORMAL) POCT glucose (10/02/2024 11:33 AM SOIL FERTILITY EXTENSION SPECIALIST) Glucose, POC 373(H) 70 - 199 mg/dL Comment:Glu2: VINAYAK Notified Glucose comment 1 Glu2: VINAYAK Notified [facility] Blood 10/02/2024 11:3 3 AM SOIL FERTILITY EXTENSION SPECIALIST 10/02/2024 11:33 AM SOIL FERTILITY EXTENSION SPECIALIST us Molina Dsouza MD LAB POCT ORDERABLE S - DEVICE Final Result Performing Organization Address [facility] de Phone Number [facility] [place] [address] * (ABNORMAL) POCT glucose (10/02/2024 7:14 AM SOIL FERTILITY EXTENSION SPECIALIST) Glucose, POC 215(H) 70 - 199 mg/dL Comment:Glu2: VINAYAK Notified Glucose comment 1 Glu2: TYRA/ Notified [facility] Blood 10/02/2024 7:14 AM SOIL FERTILITY EXTENSION SPECIALIST 10/02/2024 7:14 AM SOIL FERTILITY EXTENSION SPECIALIST us Molina Dsouza MD LAB POCT ORDERABLE S - DEVICE Final Result Performing Organization Address [facility]/ZIP Co de Phone Number [facility] [place] [address] * POCT glucose (10/02/2024 4:19 AM SOIL FERTILITY EXTENSION SPECIALIST) Glucose, POC 194 70 - 199 mg/dL Blood 10/02/2024 4:19 AM SOIL FERTILITY EXTENSION SPECIALIST 10/02/2024 4:19 AM SOIL FERTILITY EXTENSION SPECIALIST us Molina Dsouza MD LAB POCT ORDERABLE S - DEVICE Final Result Performing Organization Address [facility] de Phone Number [facility] [place] [address] * (ABNORMAL) eGFR (10/01/2024 9:18 PM SOIL FERTILITY EXTENSION SPECIALIST) [facility] eGFR 26(L) >=60 mL/min/1. 73 m2 Comment: [...] last reviewed 2021. Blood 10/01/2024 9:18 PM SOIL FERTILITY EXTENSION SPECIALIST 10/01/2024 10:11 PM SOIL FERTILITY EXTENSION SPECIALIST us Najma Pires MD LAB BLOOD ORDERABLES Final Result Performing Organization Address [facility] Co de Phone Number [facility] [place] [address] * (ABNORMAL) Protime-INR (10/01/2024 9:18 PM SOIL FERTILITY EXTENSION SPECIALIST) Pathologist [facility] PT 17.6(H) 9.7 - 13.0 sec INR 1.61(H) 0.90 - 1.20 [facility] Comment: Interpretive data Oral anticoagulant therapeutic ranges: Venous thromboembolism prophylaxis or treatment: 2.0-3.0 CARDIOLOGY Standard range: 2.0-3.0 High-intensity range: 2.5-3.5 Refer to indication-specific guidelines for appropriate target ranges for prosthetic heart valve replacement. Current interpretive data was last revised on 2019. Blood 10/01/2024 9:18 PM SOIL FERTILITY EXTENSION SPECIALIST 10/01/2024 10:12 PM SOIL FERTILITY EXTENSION SPECIALIST us Stuart Flores MD LAB BLOOD ORDERABLES Final Resul t Performing Organization Address City/[facility]/ZIP Co de Phone Number [facility] Department [place] [address] * Phosphorus (10/01/2024 9:18 PM SOIL FERTILITY EXTENSION SPECIALIST) Pathologist [facility] Phosphorus, pl 2.4 2.3 - 4.5 mg/dL Blood 10/01/2024 9:18 PM SOIL FERTILITY EXTENSION SPECIALIST 10/01/2024 10:11 PM SOIL FERTILITY EXTENSION SPECIALIST us Stuart Flores MD LAB BLOOD ORDERABLES Final Resul t [facility] [place] [address] * Magnesium (10/01/2024 9:18 PM SOIL FERTILITY EXTENSION SPECIALIST) [facility] Magnesium 2.1 1.4 - 2.5 mg/dL Blood 10/01/2024 9:18 PM SOIL FERTILITY EXTENSION SPECIALIST 10/01/2024 10:11 PM SOIL FERTILITY EXTENSION SPECIALIST us Stuart Flores MD LAB BLOOD ORDERABLES Final Resul t [facility] [place] [address] * (ABNORMAL) Comprehensive metabolic panel (10/01/2024 9:18 PM SOIL FERTILITY EXTENSION SPECIALIST) Sodium 140 135 - 145 mmol/L Potassium, pl 3.5 3.3 - 4.9 mmol/L [facility] Chloride 97 97 - 110 mmol/L [facility] CO2 28 22 - 32 mmol/L [facility] Anion gap 15 2 - 15 mmol/L [facility] BUN 50(H) 6 - 25 mg/dL [facility] Creatinine 2.12(H) 0.60 - 1.10 mg/dL [facility] Glucose 315(H) 70 - 199 mg/dL [facility] Comment: Interpretive Data Fasting glucose >/= [...] 2022. Calcium 10.2 8.5 - 10.3 mg/dL [facility] Bilirubin, total 4.0(H) 0.1 - 1.2 mg/dL [facility] Protein, pl 7.1 6.5 - 8.5 g/dL [facility] Albumin 4.6 3.5 - 5.0 g/dL [facility] Alk phos 70 40 - 130 Units/L [facility] ALT 28 7 - 45 Units/L [facility] AST 54(H) 10 - 45 Units/L [facility] Blood 10/01/2024 9:18 PM SOIL FERTILITY EXTENSION SPECIALIST 10/01/2024 10:11 PM SOIL FERTILITY EXTENSION SPECIALIST us Najma Pires MD LAB BLOOD ORDERABLES Final Result Performing Organization Address [facility] [place] [address] * (ABNORMAL) POCT glucose (10/01/2024 7:35 PM SOIL FERTILITY EXTENSION SPECIALIST) Glucose, POC 295(H) 70 - 199 mg/dL Blood 10/01/2024 7:35 PM SOIL FERTILITY EXTENSION SPECIALIST 10/01/2024 7:35 PM SOIL FERTILITY EXTENSION SPECIALIST Molina Dsouza MD LAB POCT ORDERABLE S - DEVICE Final Result Performing Organization Address [facility] de Phone Number [facility] [place] [place] [address] * (ABNORMAL) POCT glucose (10/01/2024 7:34 PM SOIL FERTILITY EXTENSION SPECIALIST) Glucose, POC 361(H) 70 - 199 mg/dL Blood 10/01/2024 7:34 PM SOIL FERTILITY EXTENSION SPECIALIST 10/01/2024 7:34 PM SOIL FERTILITY EXTENSION SPECIALIST Molina Dsouza MD LAB POCT ORDERABLE S - DEVICE Final Result Performing Organization Address [facility] Co de Phone Number [facility] [place] [place] [address] * (ABNORMAL) POCT glucose (10/01/2024 5:12 PM SOIL FERTILITY EXTENSION SPECIALIST) Glucose, POC 281(H) 70 - 199 mg/dL Blood 10/01/2024 5:12 PM SOIL FERTILITY EXTENSION SPECIALIST 10/01/2024 5:12 PM SOIL FERTILITY EXTENSION SPECIALIST us Molina Dsouza MD LAB POCT ORDERABLE S - DEVICE Final Result Performing Organization Address City/[facility] Co de Phone Number [facility] [place] [address] * (ABNORMAL) POCT glucose (10/01/2024 11:45 AM SOIL FERTILITY EXTENSION SPECIALIST) Glucose, POC 262(H) 70 - 199 mg/dL Blood 10/01/2024 11:4 5 AM SOIL FERTILITY EXTENSION SPECIALIST 10/01/2024 11:45 AM SOIL FERTILITY EXTENSION SPECIALIST Molina Dsouza MD LAB POCT ORDERABLE S - DEVICE Final Result Performing Organization Address [facility] [place] [address] * POCT glucose (10/01/2024 7:45 AM SOIL FERTILITY EXTENSION SPECIALIST) Glucose, POC 176 70 - 199 mg/dL Blood 10/01/2024 7:45 AM SOIL FERTILITY EXTENSION SPECIALIST 10/01/2024 7:45 AM SOIL FERTILITY EXTENSION SPECIALIST Molina Dsouza MD LAB POCT ORDERABLE S - DEVICE Final Result Performing Organization Address [facility] de Phone Number [facility] [place] [address] * (ABNORMAL) eGFR (09/30/2024 9:22 PM SOIL FERTILITY EXTENSION SPECIALIST) eGFR 23(L) >=60 mL/min/1. 73 m2 Comment: [...] last reviewed 2021. Blood 09/30/2024 9:22 PM SOIL FERTILITY EXTENSION SPECIALIST 09/30/2024 11:32 PM SOIL FERTILITY EXTENSION SPECIALIST us Najma Pires MD LAB BLOOD ORDERABLES Final Result [facility] [place] [address] * (ABNORMAL) Differential, auto (09/30/2024 9:22 PM SOIL FERTILITY EXTENSION SPECIALIST) Neutrophil abs 3.3 1.5 - 6.5 K/cumm Imm gran abs 0.0 0.0 - 0.1 K/cumm [facility] Lymphocyte abs 1.1 0.8 - 3.3 K/cumm [facility] Monocyte abs 0.7 0.2 - 0.8 K/cumm [facility] Eosinophil abs 0.7(H) 0.0 - 0.5 K/cumm [facility] Basophil abs 0.0 0.0 - 0.1 K/cumm [facility] Neutrophil pct 56.5 % [facility] Comment: Interpretive Data Percent cell count reference ranges are not reported, since discordance with absolute values may lead to misinterpretation of CBC data. Current Interpretive Data was last revised on 2017. Imm gran pct 0.5 % [facility] Comment: Interpretive Data Percent cell count reference ranges are not reported, since discordance with absolute values may lead to misinterpretation of CBC data. Current Interpretive Data was last revised on 2017. Lymphocyte pct 18.8 % [facility] Comment: Interpretive Data Percent cell count reference ranges are not reported, since discordance with absolute values may lead to misinterpretation of CBC data. Current Interpretive Data was last revised on 2017. Monocyte pct 11.7 % [facility] Comment: Interpretive Data Percent cell count reference ranges are not reported, since discordance with absolute values may lead to misinterpretation of CBC data. Current Interpretive Data was last revised on 2017. Eosinophil pct 12.0 % [facility] Comment: Interpretive Data Percent cell count reference ranges are not reported, since discordance with absolute values may lead to misinterpretation of CBC data. Current Interpretive Data was last revised on 2017. Basophil pct 0.5 % [facility] Comment: Interpretive Data Percent cell count reference ranges are not reported, since discordance with absolute values may lead to misinterpretation of CBC data. Current Interpretive Data was last revised on 2017. Blood 09/30/2024 9:22 PM SOIL FERTILITY EXTENSION SPECIALIST 09/30/2024 11:33 PM SOIL FERTILITY EXTENSION SPECIALIST us Molina Dsouza MD LAB BLOOD ORDERABL ES Final Result [facility] [place] [address] * (ABNORMAL) CBC with auto differential (09/30/2024 9:22 PM SOIL FERTILITY EXTENSION SPECIALIST) WBC 5.9 3.8 - 9.9 K/cumm Hgb 11.7(L) 11.9 - 15.5 g/dL [facility] Hct 35.1(L) 35.6 - 45.5 % [facility] Plt 50(L) 150 - 400 K/cumm [facility] MPV 12.5(H) 9.1 - 12.3 fL [facility] RBC 3.67(L) 3.90 - 5.20 M/cumm [facility] MCV 95.6 81.3 - 96.4 fL [facility] MCH 31.9 27.1 - 33.3 pg [facility] MCHC 33.3 32.3 - 35.7 g/dL [facility] RDW CV 14.7 11.1 - 14.9 % [facility] RDW SD 50.5(H) 35.7 - 48.1 fL [facility] NRBC abs 0.00 0.00 - 0.01 K/cumm [facility] Blood 09/30/2024 9:22 PM SOIL FERTILITY EXTENSION SPECIALIST 09/30/2024 11:33 PM SOIL FERTILITY EXTENSION SPECIALIST Molina Dsouza MD LAB BLOOD ORDERABL ES Final Result Performing Organization Address [facility] de Phone Number [facility] [place] [employer] [place] [address] * Vitamin D 25 hydroxy (09/30/2024 9:22 PM SOIL FERTILITY EXTENSION SPECIALIST) Vitamin D 25-OH 33 30 - 80 ng/mL Blood 09/30/2024 9:22 PM SOIL FERTILITY EXTENSION SPECIALIST 09/30/2024 11:34 PM SOIL FERTILITY EXTENSION SPECIALIST Result [facility] Molina Dsouza MD LAB BLOOD ORDERABL ES Final Result Performing Organization Address [facility] de Phone Number [facility] [place] [place] [address] * (ABNORMAL) Protime-INR (09/30/2024 9:22 PM SOIL FERTILITY EXTENSION SPECIALIST) PT 16.9(H) 9.7 - 13.0 sec INR 1.55(H) 0.90 - 1.20 [facility] Comment: Interpretive data Oral anticoagulant therapeutic ranges: Venous thromboembolism prophylaxis or treatment: 2.0-3.0 CARDIOLOGY Standard range: 2.0-3.0 High-intensity range: 2.5-3.5 Refer to indication-specific guidelines for appropriate target ranges for prosthetic heart valve replacement. Current interpretive data was last revised on 2019. Blood 09/30/2024 9:22 PM SOIL FERTILITY EXTENSION SPECIALIST 09/30/2024 11:33 PM SOIL FERTILITY EXTENSION SPECIALIST Result [facility] Stuart Flores MD LAB BLOOD ORDERABLES Final Resul t Performing Organization Address [facility] de Phone Number [facility] [place] [place] [address] * (ABNORMAL) Phosphorus (09/30/2024 9:22 PM SOIL FERTILITY EXTENSION SPECIALIST) [facility] Phosphorus, pl 2.2(L) 2.3 - 4.5 mg/dL Blood 09/30/2024 9:22 PM SOIL FERTILITY EXTENSION SPECIALIST 09/30/2024 11:32 PM SOIL FERTILITY EXTENSION SPECIALIST Stuart Flores MD LAB BLOOD ORDERABLES Final Resul t Performing Organization Address [facility] Co de Phone Number [facility] [place] [place] [address] * PTH (09/30/2024 9:22 PM SOIL FERTILITY EXTENSION SPECIALIST) [facility] PTH 27 15 - 65 pg/mL Blood 09/30/2024 9:22 PM SOIL FERTILITY EXTENSION SPECIALIST 09/30/2024 11:34 PM SOIL FERTILITY EXTENSION SPECIALIST Molina Dsouza MD LAB BLOOD ORDERABL ES Final Result Performing Organization Address [facility] de Phone Number [facility] Department [place] [place] [address] * Magnesium (09/30/2024 9:22 PM SOIL FERTILITY EXTENSION SPECIALIST) [facility] Magnesium 2.5 1.4 - 2.5 mg/dL Blood 09/30/2024 9:22 PM SOIL FERTILITY EXTENSION SPECIALIST 09/30/2024 11:32 PM SOIL FERTILITY EXTENSION SPECIALIST Stuart Flores MD LAB BLOOD ORDERABLES Final Resul t Performing Organization Address [facility] de Phone Number [facility] [place] [place] [address] * (ABNORMAL) Comprehensive metabolic panel (09/30/2024 9:22 PM SOIL FERTILITY EXTENSION SPECIALIST) [facility] Sodium 147(H) 135 - 145 mmol/L Potassium, pl 3.8 3.3 - 4.9 mmol/L [facility] Chloride 102 97 - 110 mmol/L [facility] CO2 31 22 - 32 mmol/L [facility] Anion gap 14 2 - 15 mmol/L [facility] BUN 46(H) 6 - 25 mg/dL [facility] Creatinine 2.31(H) 0.60 - 1.10 mg/dL [facility] Glucose 262(H) 70 - 199 mg/dL [facility] Comment: Interpretive Data Fasting glucose >/= [...] 2022. Calcium 10.8(H) 8.5 - 10.3 mg/dL [facility] Bilirubin, total 3.7(H) 0.1 - 1.2 mg/dL [facility] Protein, pl 7.6 6.5 - 8.5 g/dL [facility] Albumin 5.2(H) 3.5 - 5.0 g/dL [facility] Alk phos 74 40 - 130 Units/L [facility] ALT 24 7 - 45 Units/L [facility] AST 45 10 - 45 Units/L [facility] Blood 09/30/2024 9:22 PM SOIL FERTILITY EXTENSION SPECIALIST 09/30/2024 11:32 PM SOIL FERTILITY EXTENSION SPECIALIST us Najma Pires MD LAB BLOOD ORDERABLES Final Result [facility] [place] [address] * (ABNORMAL) POCT glucose (09/30/2024 7:58 PM SOIL FERTILITY EXTENSION SPECIALIST) [facility] Glucose, POC 277(H) 70 - 199 mg/dL Comment:Glu2: RN/MD Notified Glucose comment 1 Glu2: RN/MD Notified [facility] Blood 09/30/2024 7:58 PM SOIL FERTILITY EXTENSION SPECIALIST 09/30/2024 7:58 PM SOIL FERTILITY EXTENSION SPECIALIST us Molina Dsouza MD LAB POCT ORDERABLE S - DEVICE Final Result Performing Organization Address [facility] de Phone Number [facility] [place] [address] * POCT glucose (09/30/2024 4:20 PM SOIL FERTILITY EXTENSION SPECIALIST) Glucose, POC 183 70 - 199 mg/dL Blood 09/30/2024 4:20 PM SOIL FERTILITY EXTENSION SPECIALIST 09/30/2024 4:20 PM SOIL FERTILITY EXTENSION SPECIALIST us Molina Dsouza MD LAB POCT ORDERABLE S - DEVICE Final Result Performing Organization Address [facility] de Phone Number [facility] [place] [address] * POCT glucose (09/30/2024 11:43 AM SOIL FERTILITY EXTENSION SPECIALIST) Glucose, POC 193 70 - 199 mg/dL Blood 09/30/2024 11:4 3 AM SOIL FERTILITY EXTENSION SPECIALIST 09/30/2024 11:43 AM SOIL FERTILITY EXTENSION SPECIALIST us Molina Dsouza MD LAB POCT ORDERABLE S - DEVICE Final Result Performing Organization Address [facility] [place] [address] * POCT glucose (09/30/2024 7:54 AM SOIL FERTILITY EXTENSION SPECIALIST) Glucose, POC 171 70 - 199 mg/dL Blood 09/30/2024 7:54 AM SOIL FERTILITY EXTENSION SPECIALIST 09/30/2024 7:54 AM SOIL FERTILITY EXTENSION SPECIALIST us Molina Dsouza MD LAB POCT ORDERABLE S - DEVICE Final Result Performing Organization Address [facility] Co de Phone Number [facility] [place] [place] [address] * POCT glucose (09/30/2024 7:36 AM SOIL FERTILITY EXTENSION SPECIALIST) Glucose, POC 170 70 - 199 mg/dL Blood 09/30/2024 7:36 AM SOIL FERTILITY EXTENSION SPECIALIST 09/30/2024 7:36 AM SOIL FERTILITY EXTENSION SPECIALIST Molina Dsouza MD LAB POCT ORDERABLE S - DEVICE Final Result Performing Organization Address [facility] de Phone Number [facility] [place] [place] [address] * POCT glucose (09/30/2024 12:28 AM SOIL FERTILITY EXTENSION SPECIALIST) [facility] Glucose, POC 181 70 - 199 mg/dL Blood 09/30/2024 12:2 8 AM SOIL FERTILITY EXTENSION SPECIALIST 09/30/2024 12:28 AM SOIL FERTILITY EXTENSION SPECIALIST Molina Dsouza MD LAB POCT ORDERABLE S - DEVICE Final Result Performing Organization Address [facility] de Phone Number [facility] [place] [place] [address] * (ABNORMAL) eGFR (09/29/2024 8:49 PM SOIL FERTILITY EXTENSION SPECIALIST) eGFR 22(L) >=60 mL/min/1. 73 m2 Comment: [...] last reviewed 2021. Blood 09/29/2024 8:49 PM SOIL FERTILITY EXTENSION SPECIALIST 09/29/2024 10:02 PM SOIL FERTILITY EXTENSION SPECIALIST us Najma Pires MD LAB BLOOD ORDERABLES Final Result Performing Organization Address [facility] Co de Phone Number [facility] [employer] [place], [place] [id number] * (ABNORMAL) Protime-INR (09/29/2024 8:49 PM SOIL FERTILITY EXTENSION SPECIALIST) PT 16.0(H) 9.7 - 13.0 sec INR 1.47(H) 0.90 - 1.20 [facility] Comment: Interpretive data Oral anticoagulant therapeutic ranges: Venous thromboembolism prophylaxis or treatment: 2.0-3.0 CARDIOLOGY Standard range: 2.0-3.0 High-intensity range: 2.5-3.5 Refer to indication-specific guidelines for appropriate target ranges for prosthetic heart valve replacement. Current interpretive data was last revised on 2019. Blood 09/29/2024 8:49 PM SOIL FERTILITY EXTENSION SPECIALIST 09/29/2024 10:00 PM SOIL FERTILITY EXTENSION SPECIALIST us Stuart Flores MD LAB BLOOD ORDERABLES Final Resul t Performing Organization Address [facility] Co de Phone Number [facility] [place] [address] * (ABNORMAL) Phosphorus (09/29/2024 8:49 PM SOIL FERTILITY EXTENSION SPECIALIST) Phosphorus, pl 1.6(L) 2.3 - 4.5 mg/dL Blood 09/29/2024 8:49 PM SOIL FERTILITY EXTENSION SPECIALIST 09/29/2024 10:02 PM SOIL FERTILITY EXTENSION SPECIALIST us Stuart Flores MD LAB BLOOD ORDERABLES Final Resul t Performing Organization Address City/[facility] Co de Phone Number [facility] [place] [address] * (ABNORMAL) Magnesium (09/29/2024 8:49 PM SOIL FERTILITY EXTENSION SPECIALIST) Pathologist [facility] Magnesium 2.8(H) 1.4 - 2.5 mg/dL Blood 09/29/2024 8:49 PM SOIL FERTILITY EXTENSION SPECIALIST 09/29/2024 10:02 PM SOIL FERTILITY EXTENSION SPECIALIST us Stuart Flores MD LAB BLOOD ORDERABLES Final Resul t Performing Organization Address [facility] de Phone Number [facility] [place] [address] * (ABNORMAL) Comprehensive metabolic panel (09/29/2024 8:49 PM SOIL FERTILITY EXTENSION SPECIALIST) [facility] Sodium 141 135 - 145 mmol/L Potassium, pl 3.5 3.3 - 4.9 mmol/L [facility] Chloride 100 97 - 110 mmol/L [facility] CO2 29 22 - 32 mmol/L [facility] Anion gap 12 2 - 15 mmol/L [facility] BUN 56(H) 6 - 25 mg/dL [facility] Creatinine 2.41(H) 0.60 - 1.10 mg/dL [facility] Glucose 241(H) 70 - 199 mg/dL [facility] Comment: Interpretive Data Fasting glucose >/= [...] 2022. Calcium 10.9(H) 8.5 - 10.3 mg/dL [facility] Bilirubin, total 3.4(H) 0.1 - 1.2 mg/dL [facility] Protein, pl 7.5 6.5 - 8.5 g/dL [facility] Albumin 5.0 3.5 - 5.0 g/dL [facility] Alk phos 79 40 - 130 Units/L [facility] ALT 19 7 - 45 Units/L [facility] AST 38 10 - 45 Units/L [facility] Blood 09/29/2024 8:49 PM SOIL FERTILITY EXTENSION SPECIALIST 09/29/2024 10:02 PM SOIL FERTILITY EXTENSION SPECIALIST Najma Pires MD LAB BLOOD ORDERABLES Final Result Performing Organization Address [facility] de Phone Number [facility] [place] [address] * (ABNORMAL) POCT glucose (09/29/2024 8:08 PM SOIL FERTILITY EXTENSION SPECIALIST) Glucose, POC 225(H) 70 - 199 mg/dL Blood 09/29/2024 8:08 PM SOIL FERTILITY EXTENSION SPECIALIST 09/29/2024 8:08 PM SOIL FERTILITY EXTENSION SPECIALIST us Molina Dsouza MD LAB POCT ORDERABLE S - DEVICE Final Result Performing Organization Address [facility] de Phone Number [facility] [place] [address] * (ABNORMAL) POCT glucose (09/29/2024 4:50 PM SOIL FERTILITY EXTENSION SPECIALIST) Glucose, POC 236(H) 70 - 199 mg/dL Blood 09/29/2024 4:50 PM SOIL FERTILITY EXTENSION SPECIALIST 09/29/2024 4:50 PM SOIL FERTILITY EXTENSION SPECIALIST us Molina Dsouza MD LAB POCT ORDERABLE S - DEVICE Final Result [facility] [place] [address] * (ABNORMAL) POCT glucose (09/29/2024 11:35 AM SOIL FERTILITY EXTENSION SPECIALIST) Glucose, POC 230(H) 70 - 199 mg/dL Blood 09/29/2024 11:3 5 AM SOIL FERTILITY EXTENSION SPECIALIST 09/29/2024 11:35 AM SOIL FERTILITY EXTENSION SPECIALIST us Molina Dsouza MD LAB POCT ORDERABLE S - DEVICE Final Result Performing Organization Address [facility] Co de Phone Number [facility] [place] [address] * SHORER Evaluate and Treat (FEES) (09/29/2024 10:55 AM SOIL FERTILITY EXTENSION SPECIALIST) Narrative [facility] - 09/29/2024 10:55 AM SOIL FERTILITY EXTENSION SPECIALIST Marina Ty, SHORER 09/29/2024 3:25 PM Speech-Language Pathology: Flexible Endoscopic Evaluation of Swallowing (FEES) [facility]/PMH 63 y.o. F with hx of LYONS cirrhosis and CKD currently listed for a simultaneous liver-kidney transplant (SLK), HTN, T2DM, atrial flutter, and ERNESTINE who presented to [facility] 09/24 as an OSH transfer for AMS. Pt was reportedly at baseline until 09/24 when EMS was called to her home as patient was found confused by her . Pt was initially brought to OSH ED, transferred to [facility] ED as she is an active liver transplant patient. EGD October 2022 w/o EV. #AMS, likely hepatic encephalopathy, improving Respiratory/Intubation Status: RA Imaging: CT Abdomen/Pelvis 09/26- New right lower lobe 8 mm pulmonary nodule. CXR 09/24- Lungs are clear. No pleural effusion or pneumothorax. Neuro Outside CT 09/24- No acute intracranial abnormality. Precautions: fall, ERNESTINE PLOF: CSE at [facility] on 08/02/2022 recommending regular solids with thin liquids, meds with puree, full supervision with meals, limit distractions Current Diet Order:npo, ice chips for pleasure pending fees Baseline Diet: reports regular diet General Information Nael J Chiragsalina 09/29/24 SHORER Received On: 09/29/24 General Observations: Seen sitting upright in bed, pleasant and cooperative, functional voicing with slurred speech. Pain Score: 0 - No pain If pain >4, was RN notified? None Observed Patient Stated Goal/Comments: to start eating again Clinical Impression & Professional Recommendations Diet Solids Recommendation: Regular Diet Liquids Recommendations: [place] thick Recommended Form of Medications: As tolerated [...] deficits Secretions: Minimal Consistencies Administered: Thin liquids, [place] thick liquids, Purees, Solids (with green food coloring) Thin Liquids: Laryngeal Penetration: Present Aspiration Present: Yes Timing: Before Amount: Trace Response to aspiration: Throat clearing, None Cough: Non-productive Unsuccessful Modifications: Other (comment) (bolus hold) Penetration Aspiration Scale-Thin: 8-Material enters the airway, passes below the vocal folds and no effort is made to eject Edwards Scale-Vallecular Residue-Thin Liquids: Trace Edwards Scale-Pyriform Sinus Residue-Thin Liquids: Trace [place] Thickened Liquids: Laryngeal Penetration: None Aspiration Present: No Penetration Aspiration Scale-[place]: 1-Material does not enter airway Zari Scale-Vallecular Residue-[place] Thickened Liquids: Trace Zari Scale-Pyriform Sinus Residue-[place] Thickened Liquids: Trace Honey Thickened Liquids: Purees: Laryngeal Penetration: None Aspiration Present: No Penetration Aspiration Scale-Puree: 1-Material does not enter airway Edwards Scale-Vallecular Residue-Puree: Trace Edwards Scale-Pyriform Sinus Residue-Puree: Trace Solids: Laryngeal Penetration: None Aspiration Present: No Penetration Aspiration Scale-Solids: 1-Material does not enter airway Edwards Scale-Vallecular Residue-Solids: Moderate Edwards Scale-Pyriform Sinus Residue-Solids: Moderate Dysphagia Outcome and Severity Scale: Dysphagia Outcomes and Severity Scale: 5 Mild dysphagia Levels 1 & 2 on the ALEJANDRINA indicate need for nonoral nutrition. Treatment Treatment was not provided this date. Please reference care plan for treatment goals and details, if indicated. Plan SHORER Frequency of Services during current admission: 1-2x/wk SHORER Recommendation (Add'l Services): Defer at this time Next Visit Plan:treatment/therapy and repeat instrumental evaluation 3-5 days Additional Referrals: none at this time Discharge Summary Statement If this is the last swallow therapy visit, this serves as the discharge summary. us Molina Dsouza MD SHORER ORDERABLES Fi nal Result [facility] * SHORER Evaluate and Treat (VFSS) (09/29/2024 10:55 AM SOIL FERTILITY EXTENSION SPECIALIST) Narrative Marina Ty, SHORER - 09/29/2024 10:55 AM SOIL FERTILITY EXTENSION SPECIALIST Marina Ty, SHORER 09/29/2024 3:25 PM Speech-Language Pathology: Flexible Endoscopic Evaluation of Swallowing (FEES) [facility]/PM 63 y.o. F with hx of LYONS cirrhosis and CKD currently listed for a simultaneous liver-kidney transplant (SLK), HTN, T2DM, atrial flutter, and ERNESTINE who presented to [facility] 09/24 as an OSH transfer for AMS. Pt was reportedly at baseline until 09/24 when EMS was called to her home as patient was found confused by her . Pt was initially brought to OSH ED, transferred to [facility] ED as she is an active liver transplant patient. EGD October 2022 w/o EV. #AMS, likely hepatic encephalopathy, improving Respiratory/Intubation Status: RA Imaging: CT Abdomen/Pelvis 09/26- New right lower lobe 8 mm pulmonary nodule. CXR 09/24- Lungs are clear. No pleural effusion or pneumothorax. Neuro Outside CT 09/24- No acute intracranial abnormality. Precautions: fall, ERNESTINE PLOF: CSE at [facility] on 08/02/2022 recommending regular solids with thin liquids, meds with puree, full supervision with meals, limit distractions Current Diet Order:npo, ice chips for pleasure pending fees Baseline Diet: reports regular diet General Information Nael Cardoza 09/29/24 SHORER Received On: 09/29/24 General Observations: Seen sitting upright in bed, pleasant and cooperative, functional voicing with slurred speech. Pain Score: 0 - No pain If pain >4, was RN notified? None Observed Patient Stated Goal/Comments: to start eating again Clinical Impression & Professional Recommendations Diet Solids Recommendation: Regular Diet Liquids Recommendations: [place] thick Recommended Form of Medications: As tolerated [...] deficits Secretions: Minimal Consistencies Administered: Thin liquids, [place] thick liquids, Purees, Solids (with green food coloring) Thin Liquids: Laryngeal Penetration: Present Aspiration Present: Yes Timing: Before Amount: Trace Response to aspiration: Throat clearing, None Cough: Non-productive Unsuccessful Modifications: Other (comment) (bolus hold) Penetration Aspiration Scale-Thin: 8-Material enters the airway, passes below the vocal folds and no effort is made to eject Edwards Scale-Vallecular Residue-Thin Liquids: Trace Zari Scale-Pyriform Sinus Residue-Thin Liquids: Trace [place] Thickened Liquids: Laryngeal Penetration: None Aspiration Present: No Penetration Aspiration Scale-[place]: 1-Material does not enter airway Edwards Scale-Vallecular Residue-[place] Thickened Liquids: Trace Zari Scale-Pyriform Sinus Residue-[place] Thickened Liquids: Trace Honey Thickened Liquids: Purees: Laryngeal Penetration: None Aspiration Present: No Penetration Aspiration Scale-Puree: 1-Material does not enter airway Edwards Scale-Vallecular Residue-Puree: Trace Zari Scale-Pyriform Sinus Residue-Puree: Trace Solids: Laryngeal Penetration: None Aspiration Present: No Penetration Aspiration Scale-Solids: 1-Material does not enter airway Zari Scale-Vallecular Residue-Solids: Moderate Edwards Scale-Pyriform Sinus Residue-Solids: Moderate Dysphagia Outcome and Severity Scale: Dysphagia Outcomes and Severity Scale: 5 Mild dysphagia Levels 1 & 2 on the ALEJANDRINA indicate need for nonoral nutrition. Treatment Treatment was not provided this date. Please reference care plan for treatment goals and details, if indicated. Plan SHORER Frequency of Services during current admission: 1-2x/wk SHORER Recommendation (Add'l Services): Defer at this time Next Visit Plan:treatment/therapy and repeat instrumental evaluation 3-5 days Additional Referrals: none at this time Discharge Summary Statement If this is the last swallow therapy visit, this serves as the discharge summary. us Molina Dsouza MD SHORER ORDERABLES Fi nal Result * POCT glucose (09/29/2024 7:34 AM SOIL FERTILITY EXTENSION SPECIALIST) Glucose, POC 185 70 - 199 mg/dL Blood 09/29/2024 7:34 AM SOIL FERTILITY EXTENSION SPECIALIST 09/29/2024 7:34 AM SOIL FERTILITY EXTENSION SPECIALIST us Molina Dsouza MD LAB POCT ORDERABLE S - DEVICE Final Result Performing Organization Address [facility] de Phone Number [facility] Department [place] [address] * (ABNORMAL) POCT glucose (09/29/2024 4:49 AM SOIL FERTILITY EXTENSION SPECIALIST) Glucose, POC 203(H) 70 - 199 mg/dL Comment:Glu2: RN/MD Notified Glucose comment 1 Glu2: RN/MD Notified [facility] Blood 09/29/2024 4:49 AM SOIL FERTILITY EXTENSION SPECIALIST 09/29/2024 4:49 AM SOIL FERTILITY EXTENSION SPECIALIST us Molina Dsouza MD LAB POCT ORDERABLE S - DEVICE Final Result Performing Organization Address [facility] de Phone Number [facility] Department [place] [address] * POCT glucose (09/29/2024 12:25 AM SOIL FERTILITY EXTENSION SPECIALIST) Glucose, POC 179 70 - 199 mg/dL Blood 09/29/2024 12:2 5 AM SOIL FERTILITY EXTENSION SPECIALIST 09/29/2024 12:25 AM SOIL FERTILITY EXTENSION SPECIALIST us Molina Dsouza MD LAB POCT ORDERABLE S - DEVICE Final Result Performing Organization Address [facility] Co de Phone Number [facility] [place] [address] * (ABNORMAL) eGFR (09/28/2024 9:17 PM SOIL FERTILITY EXTENSION SPECIALIST) Pathologist [facility] eGFR 21(L) >=60 mL/min/1. 73 m2 Comment: [...] last reviewed 2021. Blood 09/28/2024 9:17 PM SOIL FERTILITY EXTENSION SPECIALIST 09/28/2024 10:40 PM SOIL FERTILITY EXTENSION SPECIALIST us Najma Pires MD LAB BLOOD ORDERABLES Final Result [facility] [place] [address] * (ABNORMAL) Differential, auto (09/28/2024 9:17 PM SOIL FERTILITY EXTENSION SPECIALIST) Pathologist [facility] Neutrophil abs 3.4 1.5 - 6.5 K/cumm Imm gran abs 0.0 0.0 - 0.1 K/cumm [facility] Lymphocyte abs 1.2 0.8 - 3.3 K/cumm [facility] Monocyte abs 0.9(H) 0.2 - 0.8 K/cumm [facility] Eosinophil abs 0.9(H) 0.0 - 0.5 K/cumm [facility] Basophil abs 0.0 0.0 - 0.1 K/cumm [facility] Neutrophil pct 52.8 % [facility] Comment: Interpretive Data Percent cell count reference ranges are not reported, since discordance with absolute values may lead to misinterpretation of CBC data. Current Interpretive Data was last revised on 2017. Imm gran pct 0.5 % [facility] Comment: Interpretive Data Percent cell count reference ranges are not reported, since discordance with absolute values may lead to misinterpretation of CBC data. Current Interpretive Data was last revised on 2017. Lymphocyte pct 18.2 % [facility] Comment: Interpretive Data Percent cell count reference ranges are not reported, since discordance with absolute values may lead to misinterpretation of CBC data. Current Interpretive Data was last revised on 2017. Monocyte pct 14.5 % [facility] Comment: Interpretive Data Percent cell count reference ranges are not reported, since discordance with absolute values may lead to misinterpretation of CBC data. Current Interpretive Data was last revised on 2017. Eosinophil pct 13.4 % [facility] Comment: Interpretive Data Percent cell count reference ranges are not reported, since discordance with absolute values may lead to misinterpretation of CBC data. Current Interpretive Data was last revised on 2017. Basophil pct 0.6 % [facility] Comment: Interpretive Data Percent cell count reference ranges are not reported, since discordance with absolute values may lead to misinterpretation of CBC data. Current Interpretive Data was last revised on 2017. Blood 09/28/2024 9:17 PM SOIL FERTILITY EXTENSION SPECIALIST 09/28/2024 10:40 PM SOIL FERTILITY EXTENSION SPECIALIST us Najma Pires MD LAB BLOOD ORDERABLES Final Result [facility] [place] [address] * (ABNORMAL) CBC with auto differential (09/28/2024 9:17 PM SOIL FERTILITY EXTENSION SPECIALIST) WBC 6.4 3.8 - 9.9 K/cumm Hgb 11.6(L) 11.9 - 15.5 g/dL [facility] Hct 35.4(L) 35.6 - 45.5 % [facility] Plt 62(L) 150 - 400 K/cumm [facility] MPV 11.5 9.1 - 12.3 fL [facility] RBC 3.65(L) 3.90 - 5.20 M/cumm [facility] MCV 97.0(H) 81.3 - 96.4 fL [facility] MCH 31.8 27.1 - 33.3 pg [facility] MCHC 32.8 32.3 - 35.7 g/dL [facility] RDW CV 14.5 11.1 - 14.9 % [facility] RDW SD 51.1(H) 35.7 - 48.1 fL [facility] NRBC abs 0.00 0.00 - 0.01 K/cumm [facility] Blood 09/28/2024 9:17 PM SOIL FERTILITY EXTENSION SPECIALIST 09/28/2024 10:40 PM SOIL FERTILITY EXTENSION SPECIALIST us Najma Pires MD LAB BLOOD ORDERABLES Final Result [facility] [place] [address] * (ABNORMAL) Protime-INR (09/28/2024 9:17 PM SOIL FERTILITY EXTENSION SPECIALIST) PT 15.4(H) 9.7 - 13.0 sec INR 1.42(H) 0.90 - 1.20 [facility] Comment: Interpretive data Oral anticoagulant therapeutic ranges: Venous thromboembolism prophylaxis or treatment: 2.0-3.0 CARDIOLOGY Standard range: 2.0-3.0 High-intensity range: 2.5-3.5 Refer to indication-specific guidelines for appropriate target ranges for prosthetic heart valve replacement. Current interpretive data was last revised on 2019. Blood 09/28/2024 9:17 PM SOIL FERTILITY EXTENSION SPECIALIST 09/28/2024 10:49 PM SOIL FERTILITY EXTENSION SPECIALIST us Stuart Flores MD LAB BLOOD ORDERABLES Final Resul t Performing Organization Address [facility] Co de Phone Number [facility] [place] [place] [address] * Phosphorus (09/28/2024 9:17 PM SOIL FERTILITY EXTENSION SPECIALIST) Phosphorus, pl 2.3 2.3 - 4.5 mg/dL Blood 09/28/2024 9:17 PM SOIL FERTILITY EXTENSION SPECIALIST 09/28/2024 10:40 PM SOIL FERTILITY EXTENSION SPECIALIST Stuart Flores MD LAB BLOOD ORDERABLES Final Resul t Performing Organization Address [facility] [place] [address] * (ABNORMAL) Magnesium (09/28/2024 9:17 PM SOIL FERTILITY EXTENSION SPECIALIST) Pathologist [facility] Magnesium 2.8(H) 1.4 - 2.5 mg/dL Blood 09/28/2024 9:17 PM SOIL FERTILITY EXTENSION SPECIALIST 09/28/2024 10:40 PM SOIL FERTILITY EXTENSION SPECIALIST Stuart Flores MD LAB BLOOD ORDERABLES Final Resul t Performing Organization Address [facility] de Phone Number [facility] [place] [place] [address] * (ABNORMAL) Hemoglobin A1c (09/28/2024 9:17 PM SOIL FERTILITY EXTENSION SPECIALIST) Hgb A1C 8.5(H) 4.0 - 5.6 % Estimated Average Glucose 197 mg/dL [facility] Blood 09/28/2024 9:17 PM SOIL FERTILITY EXTENSION SPECIALIST 09/28/2024 10:44 PM SOIL FERTILITY EXTENSION SPECIALIST us Swapnil Moore MD LAB BLOOD ORDERABLES Fin al Result Performing Organization Address City/[facility] Co de Phone Number [facility] [place] [address] * (ABNORMAL) Comprehensive metabolic panel (09/28/2024 9:17 PM SOIL FERTILITY EXTENSION SPECIALIST) Sodium 144 135 - 145 mmol/L Potassium, pl 3.4 3.3 - 4.9 mmol/L [facility] Chloride 101 97 - 110 mmol/L [facility] CO2 29 22 - 32 mmol/L [facility] Anion gap 14 2 - 15 mmol/L [facility] BUN 58(H) 6 - 25 mg/dL [facility] Creatinine 2.53(H) 0.60 - 1.10 mg/dL [facility] Glucose 207(H) 70 - 199 mg/dL [facility] Comment: Interpretive Data Fasting glucose >/= [...] 2022. Calcium 10.6(H) 8.5 - 10.3 mg/dL [facility] Bilirubin, total 2.9(H) 0.1 - 1.2 mg/dL [facility] Protein, pl 7.5 6.5 - 8.5 g/dL [facility] Albumin 4.8 3.5 - 5.0 g/dL [facility] Alk phos 81 40 - 130 Units/L [facility] ALT 20 7 - 45 Units/L [facility] AST 32 10 - 45 Units/L [facility] Blood 09/28/2024 9:17 PM SOIL FERTILITY EXTENSION SPECIALIST 09/28/2024 10:40 PM SOIL FERTILITY EXTENSION SPECIALIST us Najma Pires MD LAB BLOOD ORDERABLES Final Result [facility] [place] [address] * (ABNORMAL) POCT glucose (09/28/2024 7:57 PM SOIL FERTILITY EXTENSION SPECIALIST) Glucose, POC 203(H) 70 - 199 mg/dL Comment:Glu2: RN/MD Notified Glucose comment 1 Glu2: RN/MD Notified [facility] Blood 09/28/2024 7:57 PM SOIL FERTILITY EXTENSION SPECIALIST 09/28/2024 7:57 PM SOIL FERTILITY EXTENSION SPECIALIST Molina Dsouza MD LAB POCT ORDERABLE S - DEVICE Final Result Performing Organization Address [facility] [place] [address] * (ABNORMAL) POCT glucose (09/28/2024 4:31 PM SOIL FERTILITY EXTENSION SPECIALIST) Glucose, POC 218(H) 70 - 199 mg/dL Blood 09/28/2024 4:31 PM SOIL FERTILITY EXTENSION SPECIALIST 09/28/2024 4:31 PM SOIL FERTILITY EXTENSION SPECIALIST Stuart Flores MD LAB POCT ORDERABLES - DEVICE Fin al Result Performing Organization Address [facility] Co de Phone Number [facility] [place] [place] [address] * (ABNORMAL) POCT glucose (09/28/2024 11:23 AM SOIL FERTILITY EXTENSION SPECIALIST) Glucose, POC 244(H) 70 - 199 mg/dL Blood 09/28/2024 11:2 3 AM SOIL FERTILITY EXTENSION SPECIALIST 09/28/2024 11:23 AM SOIL FERTILITY EXTENSION SPECIALIST us Stuart Flores MD LAB POCT ORDERABLES - DEVICE Fin al Result Performing Organization Address [facility] Co de Phone Number [facility] [place] [address] * (ABNORMAL) POCT glucose (09/28/2024 8:01 AM SOIL FERTILITY EXTENSION SPECIALIST) Glucose, POC 271(H) 70 - 199 mg/dL Blood 09/28/2024 8:01 AM SOIL FERTILITY EXTENSION SPECIALIST 09/28/2024 8:01 AM SOIL FERTILITY EXTENSION SPECIALIST us Stuart Flores MD LAB POCT ORDERABLES - DEVICE Fin al Result Performing Organization Address [facility] de Phone Number [facility] [place] [place] [address] * (ABNORMAL) POCT glucose (09/28/2024 4:52 AM SOIL FERTILITY EXTENSION SPECIALIST) Glucose, POC 227(H) 70 - 199 mg/dL Blood 09/28/2024 4:52 AM SOIL FERTILITY EXTENSION SPECIALIST 09/28/2024 4:52 AM SOIL FERTILITY EXTENSION SPECIALIST us Stuart Flores MD LAB POCT ORDERABLES - DEVICE Fin al Result Performing Organization Address [facility] de Phone Number [facility] [place] [place] [address] * (ABNORMAL) POCT glucose (09/28/2024 12:29 AM SOIL FERTILITY EXTENSION SPECIALIST) [facility] Glucose, POC 232(H) 70 - 199 mg/dL Blood 09/28/2024 12:2 9 AM SOIL FERTILITY EXTENSION SPECIALIST 09/28/2024 12:29 AM SOIL FERTILITY EXTENSION SPECIALIST us Stuart Flores MD LAB POCT ORDERABLES - DEVICE Fin al Result Performing Organization Address [facility] de Phone Number [facility] [place] [place] [address] * (ABNORMAL) eGFR (09/28/2024 12:06 AM SOIL FERTILITY EXTENSION SPECIALIST) Pathologist [facility] eGFR 15(L) >=60 mL/min/1. 73 m2 Comment: [...] reviewed 2021. Blood 09/28/2024 12:0 6 AM SOIL FERTILITY EXTENSION SPECIALIST 09/28/2024 12:22 AM SOIL FERTILITY EXTENSION SPECIALIST us Najma Pires MD LAB BLOOD ORDERABLES Final Result [facility] [place] [address] * (ABNORMAL) Differential, auto (09/28/2024 12:06 AM SOIL FERTILITY EXTENSION SPECIALIST) Neutrophil abs 3.3 1.5 - 6.5 K/cumm Imm gran abs 0.0 0.0 - 0.1 K/cumm [facility] Lymphocyte abs 1.2 0.8 - 3.3 K/cumm [facility] Monocyte abs 1.0(H) 0.2 - 0.8 K/cumm [facility] Eosinophil abs 0.7(H) 0.0 - 0.5 K/cumm [facility] Basophil abs 0.1 0.0 - 0.1 K/cumm [facility] Neutrophil pct 52.8 % [facility] Comment: Interpretive Data Percent cell count reference ranges are not reported, since discordance with absolute values may lead to misinterpretation of CBC data. Current Interpretive Data was last revised on 2017. Imm gran pct 0.5 % [facility] Comment: Interpretive Data Percent cell count reference ranges are not reported, since discordance with absolute values may lead to misinterpretation of CBC data. Current Interpretive Data was last revised on 2017. Lymphocyte pct 19.0 % [facility] Comment: Interpretive Data Percent cell count reference ranges are not reported, since discordance with absolute values may lead to misinterpretation of CBC data. Current Interpretive Data was last revised on 2017. Monocyte pct 15.7 % [facility] Comment: Interpretive Data Percent cell count reference ranges are not reported, since discordance with absolute values may lead to misinterpretation of CBC data. Current Interpretive Data was last revised on 2017. Eosinophil pct 11.2 % [facility] Comment: Interpretive Data Percent cell count reference ranges are not reported, since discordance with absolute values may lead to misinterpretation of CBC data. Current Interpretive Data was last revised on 2017. Basophil pct 0.8 % [facility] Comment: Interpretive Data Percent cell count reference ranges are not reported, since discordance with absolute values may lead to misinterpretation of CBC data. Current Interpretive Data was last revised on 2017. Blood 09/28/2024 12:0 6 AM SOIL FERTILITY EXTENSION SPECIALIST 09/28/2024 12:24 AM SOIL FERTILITY EXTENSION SPECIALIST us Najma Pires MD LAB BLOOD ORDERABLES Final Result [facility] [place] [address] * (ABNORMAL) CBC with auto differential (09/28/2024 12:06 AM SOIL FERTILITY EXTENSION SPECIALIST) WBC 6.2 3.8 - 9.9 K/cumm Hgb 11.4(L) 11.9 - 15.5 g/dL [facility] Hct 33.7(L) 35.6 - 45.5 % [facility] Plt 64(L) 150 - 400 K/cumm [facility] MPV 11.8 9.1 - 12.3 fL [facility] RBC 3.54(L) 3.90 - 5.20 M/cumm [facility] MCV 95.2 81.3 - 96.4 fL [facility] MCH 32.2 27.1 - 33.3 pg [facility] MCHC 33.8 32.3 - 35.7 g/dL [facility] RDW CV 14.6 11.1 - 14.9 % [facility] RDW SD 50.9(H) 35.7 - 48.1 fL [facility] NRBC abs 0.00 0.00 - 0.01 K/cumm [facility] Blood 09/28/2024 12:0 6 AM [employer]ION SPECIALIST 09/28/2024 12:24 AM [employer] EXTENSION SPECIALIST Najma Pires MD LAB BLOOD ORDERABLES Final Result Performing Organization Address City/[facility] Co de Phone Number [facility] [place] [address] * (ABNORMAL) Protime-INR (09/28/2024 12:06 AM [employer]IL [employer]ILITY EXTENSION SPECIALIST) PT 16.2(H) 9.7 - 13.0 sec INR 1.49(H) 0.90 - 1.20 [facility] Comment: Interpretive data Oral anticoagulant therapeutic ranges: Venous thromboembolism prophylaxis or treatment: 2.0-3.0 CARDIOLOGY Standard range: 2.0-3.0 High-intensity range: 2.5-3.5 Refer to indication-specific guidelines for appropriate target ranges for prosthetic heart valve replacement. Current interpretive data was last revised on 2019. Blood 09/28/2024 12:0 6 AM [employer] EXTENSION SPECIALIST 09/28/2024 12:35 AM [employer]IL [employer]ILITY EXTENSION SPECIALIST Stuart Flores MD LAB BLOOD ORDERABLES Final Resul t Performing Organization Address [facility] Co de Phone Number [facility] [place] [place] [address] * Phosphorus (09/28/2024 12:06 AM SOIL [employer]ILITY EXTENSION SPECIALIST) Phosphorus, pl 2.5 2.3 - 4.5 mg/dL Blood 09/28/2024 12:0 6 AM [employer] EXTENSION SPECIALIST 09/28/2024 12:22 AM [employer]ILITY EXTENSION SPECIALIST us Sturat Flores MD LAB BLOOD ORDERABLES Final Resul t Performing Organization Address City/[facility] Co de Phone Number [facility] [place] [address] * (ABNORMAL) Magnesium (09/28/2024 12:06 AM [employer]IL [employer]ILITY EXTENSION SPECIALIST) Magnesium 2.9(H) 1.4 - 2.5 mg/dL Blood 09/28/2024 12:0 6 AM [employer]ILITY EXTENSION SPECIALIST 09/28/2024 12:22 AM SOIL F[employer]ILITY EXTENSION SPECIALIST us Stuart Flores MD LAB BLOOD ORDERABLES Final Resul t Performing Organization Address [facility] de Phone Number [facility] [place] [address] * (ABNORMAL) Comprehensive metabolic panel (09/28/2024 12:06 AM [employer]IL [employer] EXTENSION SPECIALIST) Sodium 143 135 - 145 mmol/L Potassium, pl 3.5 3.3 - 4.9 mmol/L [facility] Chloride 101 97 - 110 mmol/L [facility] CO2 27 22 - 32 mmol/L [facility] Anion gap 15 2 - 15 mmol/L [facility] BUN 74(H) 6 - 25 mg/dL [facility] Creatinine 3.29(H) 0.60 - 1.10 mg/dL [facility] Glucose 244(H) 70 - 199 mg/dL [facility] Comment: Interpretive Data Fasting glucose >/= [...] 2022. Calcium 10.5(H) 8.5 - 10.3 mg/dL [facility] Bilirubin, total 2.6(H) 0.1 - 1.2 mg/dL [facility] Protein, pl 6.9 6.5 - 8.5 g/dL [facility] Albumin 4.4 3.5 - 5.0 g/dL [facility] Alk phos 80 40 - 130 Units/L [facility] ALT 18 7 - 45 Units/L [facility] AST 29 10 - 45 Units/L [facility] Blood 09/28/2024 12:0 6 AM [employer]ILITY EXTENSION SPECIALIST 09/28/2024 12:22 AM [employer]ILITY EXTENSION SPECIALIST Najma Pires MD LAB BLOOD ORDERABLES Final Result Performing Organization Address [facility] Phone Number [facility] [place] [address] * (ABNORMAL) POCT glucose (09/27/2024 11:55 PM [employer]ILITY EXTENSION SPECIALIST) Glucose, POC 224(H) 70 - 199 mg/dL Blood 09/27/2024 11:5 5 PM [employer]ILITY EXTENSION SPECIALIST 09/27/2024 11:55 PM [employer]ILITY EXTENSION SPECIALIST Stuart Flores MD LAB POCT ORDERABLES - DEVICE Fin al Result Performing Organization Address [facility] Phone Number [facility] Department [place] [place] [address] * POCT glucose (09/27/2024 8:03 PM [employer]IL [employer]ILITY EXTENSION SPECIALIST) Glucose, POC 197 70 - 199 mg/dL Blood 09/27/2024 8:03 PM [employer]ILITY EXTENSION SPECIALIST 09/27/2024 8:03 PM [employer]ILITY EXTENSION SPECIALIST Stuart Flores MD LAB POCT ORDERABLES - DEVICE Fin al Result Performing Organization Address [facility] Phone Number [facility] [place] [place] [address] * (ABNORMAL) POCT glucose (09/27/2024 4:26 PM [employer]ILITY EXTENSION SPECIALIST) Glucose, POC 203(H) 70 - 199 mg/dL Blood 09/27/2024 4:26 PM [employer]ILITY EXTENSION SPECIALIST 09/27/2024 4:26 PM SO[employer]ILITY EXTENSION SPECIALIST us Stuart Flores MD LAB POCT ORDERABLES - DEVICE Fin al Result Performing Organization Address [facility] [place] [address] * (ABNORMAL) POCT glucose (09/27/2024 11:49 AM SO[employer]ILITY EXTENSION SPECIALIST) Glucose, POC 241(H) 70 - 199 mg/dL Blood 09/27/2024 11:4 9 AM SO[employer]ILITY EXTENSION SPECIALIST 09/27/2024 11:49 AM SO[employer]ILITY EXTENSION SPECIALIST us Stuart Flores MD LAB POCT ORDERABLES - DEVICE Fin al Result Performing Organization Address [facility] [place] [address] * POCT glucose (09/27/2024 8:05 AM SO[employer]ILITY EXTENSION SPECIALIST) Glucose, POC 199 70 - 199 mg/dL Blood 09/27/2024 8:05 AM SO[employer]ILITY EXTENSION SPECIALIST 09/27/2024 8:05 AM SO[employer] F[employer]ILITY EXTENSION SPECIALIST us Stuart Flores MD LAB POCT ORDERABLES - DEVICE Fin al Result Performing Organization Address [facility] Co de Phone Number [facility] [place] [address] * (ABNORMAL) POCT glucose (09/27/2024 4:24 AM SOIL [employer]ILITY EXTENSION SPECIALIST) Glucose, POC 215(H) 70 - 199 mg/dL Blood 09/27/2024 4:24 AM SO[employer]ILITY EXTENSION SPECIALIST 09/27/2024 4:24 AM SO[employer]ILITY EXTENSION SPECIALIST us Stuart Flores MD LAB POCT ORDERABLES - DEVICE Fin al Result Performing Organization Address [facility] Co de Phone Number [facility] [place] [place] [address] * POCT glucose (09/26/2024 11:20 PM SOIL F[employer]ILITY EXTENSION SPECIALIST) Glucose, POC 168 70 - 199 mg/dL Blood 09/26/2024 11:2 0 PM [employer]ILITY EXTENSION SPECIALIST 09/26/2024 11:20 PM [employer]ILITY EXTENSION SPECIALIST Stuart Flores MD LAB POCT ORDERABLES - DEVICE Fin al Result Performing Organization Address [facility] de Phone Number [facility] [place] [address] * (ABNORMAL) eGFR (09/26/2024 9:23 PM SOIL [employer]ILITY EXTENSION SPECIALIST) [facility] eGFR 10(L) >=60 mL/min/1. 73 m2 Comment: [...] last reviewed 2021. Blood 09/26/2024 9:23 PM [employer]ILITY EXTENSION SPECIALIST 09/26/2024 10:24 PM [employer]ILITY EXTENSION SPECIALIST us Najma Pires MD LAB BLOOD ORDERABLES Final Result [facility] [place] [address] * (ABNORMAL) Differential, auto (09/26/2024 9:23 PM [employer]ILITY EXTENSION SPECIALIST) Neutrophil abs 3.7 1.5 - 6.5 K/cumm Imm gran abs 0.0 0.0 - 0.1 K/cumm [facility] Lymphocyte abs 1.6 0.8 - 3.3 K[facility]cumm [facility] Monocyte abs 1.0(H) 0.2 - 0.8 K/cumm [facility] Eosinophil abs 0.7(H) 0.0 - 0.5 K/cumm [facility] Basophil abs 0.0 0.0 - 0.1 K/cumm [facility] Neutrophil pct 53.1 % [facility] Comment: Interpretive Data Percent cell count reference ranges are not reported, since discordance with absolute values may lead to misinterpretation of CBC data. Current Interpretive Data was last revised on 2017. Imm gran pct 0.4 % [facility] Comment: Interpretive Data Percent cell count reference ranges are not reported, since discordance with absolute values may lead to misinterpretation of CBC data. Current Interpretive Data was last revised on 2017. Lymphocyte pct 23.0 % [facility] Comment: Interpretive Data Percent cell count reference ranges are not reported, since discordance with absolute values may lead to misinterpretation of CBC data. Current Interpretive Data was last revised on 2017. Monocyte pct 13.5 % [facility] Comment: Interpretive Data Percent cell count reference ranges are not reported, since discordance with absolute values may lead to misinterpretation of CBC data. Current Interpretive Data was last revised on 2017. Eosinophil pct 9.4 % [facility] Comment: Interpretive Data Percent cell count reference ranges are not reported, since discordance with absolute values may lead to misinterpretation of CBC data. Current Interpretive Data was last revised on 2017. Basophil pct 0.6 % [facility] Comment: Interpretive Data Percent cell count reference ranges are not reported, since discordance with absolute values may lead to misinterpretation of CBC data. Current Interpretive Data was last revised on 2017. Blood 09/26/2024 9:23 PM [employer]ILITY EXTENSION SPECIALIST 09/26/2024 10:25 PM SO[employer] F[employer]ILITY EXTENSION SPECIALIST us Najma Pires MD LAB BLOOD ORDERABLES Final Result [facility] [place] [address] * (ABNORMAL) CBC with auto differential (09/26/2024 9:23 PM SOIL [employer]ILITY EXTENSION SPECIALIST) WBC 7.0 3.8 - 9.9 K/cumm Hgb 11.1(L) 11.9 - 15.5 g/dL [facility] Hct 31.6(L) 35.6 - 45.5 % [facility] Plt 66(L) 150 - 400 K/cumm [facility] MPV 12.7(H) 9.1 - 12.3 fL [facility] RBC 3.44(L) 3.90 - 5.20 M/cumm [facility] MCV 91.9 81.3 - 96.4 fL [facility] MCH 32.3 27.1 - 33.3 pg [facility] MCHC 35.1 32.3 - 35.7 g/dL [facility] RDW CV 14.6 11.1 - 14.9 % [facility] RDW SD 49.0(H) 35.7 - 48.1 fL [facility] NRBC abs 0.00 0.00 - 0.01 K/cumm [facility] Blood 09/26/2024 9:23 PM [employer]ILITY EXTENSION SPECIALIST 09/26/2024 10:25 PM [employer]ILITY EXTENSION SPECIALIST Najma Pires MD LAB BLOOD ORDERABLES Final Result [facility] Department [place] [place] [address] * (ABNORMAL) Protime-INR (09/26/2024 9:23 PM SOIL [employer]ILITY EXTENSION SPECIALIST) PT 15.3(H) 9.7 - 13.0 sec INR 1.41(H) 0.90 - 1.20 [facility] Comment: Interpretive data Oral anticoagulant therapeutic ranges: Venous thromboembolism prophylaxis or treatment: 2.0-3.0 CARDIOLOGY Standard range: 2.0-3.0 High-intensity range: 2.5-3.5 Refer to indication-specific guidelines for appropriate target ranges for prosthetic heart valve replacement. Current interpretive data was last revised on 2019. Blood 09/26/2024 9:23 PM [employer]ILITY EXTENSION SPECIALIST 09/26/2024 10:19 PM SOIL [employer]ILITY EXTENSION SPECIALIST Stuart Flores MD LAB BLOOD ORDERABLES Final Resul t Performing Organization Address [facility]/ZIP Co de Phone Number [facility] [place] [place] [address] * Phosphorus (09/26/2024 9:23 PM SOIL F[employer]ILITY EXTENSION SPECIALIST) Pathologist [facility] Phosphorus, pl 3.2 2.3 - 4.5 mg/dL Comment:Repeated and Verifie d Blood 09/26/2024 9:23 PM SO[employer]ILITY EXTENSION SPECIALIST 09/26/2024 10:24 PM SO[employer]ILITY EXTENSION SPECIALIST Stuart Flores MD LAB BLOOD ORDERABLES Final Resul t Performing Organization Address City/[facility] Co de Phone Number [facility] [place] [place] [address] * (ABNORMAL) Magnesium (09/26/2024 9:23 PM SOIL F[employer]ILITY EXTENSION SPECIALIST) Pathologist [facility] Magnesium 3.0(H) 1.4 - 2.5 mg/dL Blood 09/26/2024 9:23 PM SOIL F[employer]ILITY EXTENSION SPECIALIST 09/26/2024 10:24 PM SOIL F[employer]ILITY EXTENSION SPECIALIST us Stuart Flores MD LAB BLOOD ORDERABLES Final Resul t [facility] [place] [address] * (ABNORMAL) Comprehensive metabolic panel (09/26/2024 9:23 PM SOIL F[employer]ILITY EXTENSION SPECIALIST) Pathologist [facility] Sodium 143 135 - 145 mmol/L Potassium, pl 3.3 3.3 - 4.9 mmol/L [facility] Chloride 100 97 - 110 mmol/L [facility] CO2 26 22 - 32 mmol/L [facility] Anion gap 17(H) 2 - 15 mmol/L [facility] BUN 93(H) 6 - 25 mg/dL [facility] Creatinine 4.70(H) 0.60 - 1.10 mg/dL [facility] Glucose 196 70 - 199 mg/dL [facility] Comment: Interpretive Data Fasting glucose >/= [...] Calcium 10.1 8.5 - 10.3 mg/dL [facility] Bilirubin, total 2.1(H) 0.1 - 1.2 mg/dL [facility] Protein, pl 6.6 6.5 - 8.5 g/dL [facility] Albumin 4.3 3.5 - 5.0 g/dL [facility] Alk phos 85 40 - 130 Units/L [facility] ALT 13 7 - 45 Units/L [facility] AST 30 10 - 45 Units/L [facility] Blood 09/26/2024 9:23 PM SOIL [employer]ILITY EXTENSION SPECIALIST 09/26/2024 10:24 PM SO[employer] F[employer]ILITY EXTENSION SPECIALIST Najma Pires MD LAB BLOOD ORDERABLES Final Result Performing Organization Address [facility] de Phone Number [facility] [place] [address] * (ABNORMAL) POCT glucose (09/26/2024 7:53 PM SOIL [employer]ILITY EXTENSION SPECIALIST) Glucose, POC 204(H) 70 - 199 mg/dL Blood 09/26/2024 7:53 PM SO[employer] F[employer]ILITY EXTENSION SPECIALIST 09/26/2024 7:53 PM SOIL FERTILITY EXTENSION SPECIALIST Result [facility] Stuart Flores MD LAB POCT ORDERABLES - DEVICE Fin al Result Performing Organization Address [facility] de Phone Number [facility] [place] [address] * (ABNORMAL) POCT glucose (09/26/2024 4:37 PM SOIL F[employer]ILITY EXTENSION SPECIALIST) [facility] Glucose, POC 256(H) 70 - 199 mg/dL Blood 09/26/2024 4:37 PM SOIL FERTILITY EXTENSION SPECIALIST 09/26/2024 4:37 PM SOIL FERTILITY EXTENSION SPECIALIST Result [facility] Stuart Flores MD LAB POCT ORDERABLES - DEVICE Fin al Result Performing Organization Address [facility] Phone Number [facility] [place] [address] * (ABNORMAL) eGFR (09/26/2024 3:40 PM SOIL [employer]ILITY EXTENSION SPECIALIST) eGFR 9(L) >=60 mL/min/1. 73 m2 Comment: [...] last reviewed 2021. Blood 09/26/2024 3:40 PM SO[employer]ILITY EXTENSION SPECIALIST 09/26/2024 5:50 PM SOIL F[employer]ILITY EXTENSION SPECIALIST us Stuart Flores MD LAB BLOOD ORDERABLES Final Resul t [facility] [place] [address] * (ABNORMAL) Basic metabolic panel (09/26/2024 3:40 PM SOIL F[employer]ILITY EXTENSION SPECIALIST) [facility] Sodium 139 135 - 145 mmol/L Potassium, pl 3.4 3.3 - 4.9 mmol/L [facility] Chloride 98 97 - 110 mmol/L [facility] CO2 25 22 - 32 mmol/L [facility] Anion gap 16(H) 2 - 15 mmol/L [facility] BUN 87(H) 6 - 25 mg/dL [facility] Creatinine 4.94(H) 0.60 - 1.10 mg/dL [facility] Glucose 273(H) 70 - 199 mg/dL [facility] Comment: Interpretive Data Fasting glucose >/= [...] 2022. Calcium 10.1 8.5 - 10.3 mg/dL [facility] Blood 09/26/2024 3:40 PM SOIL F[employer]ILITY EXTENSION SPECIALIST 09/26/2024 5:50 PM SO[employer] F[employer]ILITY EXTENSION SPECIALIST us Stuart Flores MD LAB BLOOD ORDERABLES Final Resul t Performing Organization Address [facility] Co de Phone Number [facility] [place] [place] [address] * (ABNORMAL) POCT glucose (09/26/2024 11:16 AM SOIL F[employer]ILITY EXTENSION SPECIALIST) Glucose, POC 290(H) 70 - 199 mg/dL Blood 09/26/2024 11:1 6 AM SOIL F[employer]ILITY EXTENSION SPECIALIST 09/26/2024 11:16 AM SOIL F[employer]ILITY EXTENSION SPECIALIST us Stuart Flores MD LAB POCT ORDERABLES - DEVICE Fin al Result Performing Organization Address [facility] de Phone Number [facility] [place] [address] * (ABNORMAL) POCT glucose (09/26/2024 9:40 AM SOIL FERTILITY EXTENSION SPECIALIST) Glucose, POC 233(H) 70 - 199 mg/dL Blood 09/26/2024 9:40 AM SOIL FERTILITY EXTENSION SPECIALIST 09/26/2024 9:40 AM SO[employer] F[employer]ILITY EXTENSION SPECIALIST us Stuart Flores MD LAB POCT ORDERABLES - DEVICE Fin al Result Performing Organization Address [facility] de Phone Number [facility] [place] [place] [address] * (ABNORMAL) Lactate (09/26/2024 8:16 AM SOIL [employer]ILITY EXTENSION SPECIALIST) Lactate 3.4(H) 0.7 - 2.0 mmol/L Blood 09/26/2024 8:1 6 AM [employer] F[employer]ILITY EXTENSION SPECIALIST 09/26/2024 8:25 AM SO[employer]ILITY EXTENSION SPECIALIST us Stuart Flores MD LAB BLOOD ORDERABLES Final Resul t Performing Organization Address [facility] de Phone Number [facility] [place] [address] * (ABNORMAL) POCT glucose (09/26/2024 7:45 AM SOIL F[employer]ILITY EXTENSION SPECIALIST) Glucose, POC 305(H) 70 - 199 mg/dL Blood 09/26/2024 7:45 AM SO[employer] F[employer]ILITY EXTENSION SPECIALIST 09/26/2024 7:45 AM SO[employer] F[employer]ILITY EXTENSION SPECIALIST us Stuart Flores MD LAB POCT ORDERABLES - DEVICE Fin al Result Performing Organization Address [facility] de Phone Number [facility] [place] [address] * (ABNORMAL) POCT glucose (09/26/2024 4:26 AM SOIL F[employer]ILITY EXTENSION SPECIALIST) Glucose, POC 283(H) 70 - 199 mg/dL Blood 09/26/2024 4:26 AM SO[employer] F[employer]ILITY EXTENSION SPECIALIST 09/26/2024 4:26 AM SO[employer] F[employer]ILITY EXTENSION SPECIALIST us Stuart Flores MD LAB POCT ORDERABLES - DEVICE Fin al Result Performing Organization Address [facility] de Phone Number [facility] [place] [address] * CT Abdomen Pelvis WO Contrast (09/26/2024 3:17 AM SOIL [employer]ILITY EXTENSION SPECIALIST) Anatomical Region Laterality Modality Body N/A Computed Tomogra phy 09/26/2024 3:35 AM [employer]ILITY EXTENSION SPECIALIST Impressions 09/26/2024 8:12 AM [employer]ILITY EXTENSION SPECIALIST 1. No acute intra-abdominal findings. 2. Cirrhotic [...] Juan Randall MD Narrative 09/26/2024 8:12 AM [employer]IL [employer]ILITY EXTENSION SPECIALIST EXAMINATION: Computed tomography of the abdomen and [...] Result * (ABNORMAL) Lactate (09/26/2024 12:44 AM SOIL F[employer]ILITY EXTENSION SPECIALIST) Lactate 3.5(H) 0.7 - 2.0 mmol/L Blood 09/26/2024 12:4 4 AM SOIL F[employer]ILITY EXTENSION SPECIALIST 09/26/2024 1:06 AM SOIL FERTILITY EXTENSION SPECIALIST us Stuart Flores MD LAB BLOOD ORDERABLES Final Resul t [facility] [place] [address] * (ABNORMAL) POCT glucose (09/26/2024 12:08 AM SOIL FERTILITY EXTENSION SPECIALIST) Glucose, POC 302(H) 70 - 199 mg/dL Blood 09/26/2024 12:0 8 AM SOIL FERTILITY EXTENSION SPECIALIST 09/26/2024 12:08 AM SOIL FERTILITY EXTENSION SPECIALIST us Stuart Flores MD LAB POCT ORDERABLES - DEVICE Fin al Result Performing Organization Address [facility] de Phone [facility] [place] [address] * (ABNORMAL) eGFR (09/25/2024 10:48 PM SOIL [employer]ILITY EXTENSION SPECIALIST) Pathologist [facility] eGFR 9(L) >=60 mL/min/1. 73 m2 Comment: [...] reviewed 2021. Blood 09/25/2024 10:4 8 PM SOIL [employer]ILITY EXTENSION SPECIALIST 09/26/2024 12:38 AM SO[employer]ILITY EXTENSION SPECIALIST us Najma Pires MD LAB BLOOD ORDERABLES Final Result Performing Organization Address [facility] de Phone Number [facility] [place] [address] * (ABNORMAL) Differential, auto (09/25/2024 10:48 PM SOIL F[employer]ILITY EXTENSION SPECIALIST) Pathologist [facility] Neutrophil abs 5.9 1.5 - 6.5 K/cumm Imm gran abs 0.0 0.0 - 0.1 K/cumm [facility] Lymphocyte abs 1.8 0.8 - 3.3 K/cumm [facility] Monocyte abs 1.2(H) 0.2 - 0.8 K/cumm [facility] Eosinophil abs 0.5 0.0 - 0.5 K/cumm [facility] Basophil abs 0.1 0.0 - 0.1 K/cumm [facility] Neutrophil pct 62.4 % [facility] Comment: Interpretive Data Percent cell count reference ranges are not reported, since discordance with absolute values may lead to misinterpretation of CBC data. Current Interpretive Data was last revised on 2017. Imm gran pct 0.2 % [facility] Comment: Interpretive Data Percent cell count reference ranges are not reported, since discordance with absolute values may lead to misinterpretation of CBC data. Current Interpretive Data was last revised on 2017. Lymphocyte pct 19.1 % [facility] Comment: Interpretive Data Percent cell count reference ranges are not reported, since discordance with absolute values may lead to misinterpretation of CBC data. Current Interpretive Data was last revised on 2017. Monocyte pct 12.3 % [facility] Comment: Interpretive Data Percent cell count reference ranges are not reported, since discordance with absolute values may lead to misinterpretation of CBC data. Current Interpretive Data was last revised on 2017. Eosinophil pct 5.4 % [facility] Comment: Interpretive Data Percent cell count reference ranges are not reported, since discordance with absolute values may lead to misinterpretation of CBC data. Current Interpretive Data was last revised on 2017. Basophil pct 0.6 % [facility] Comment: Interpretive Data Percent cell count reference ranges are not reported, since discordance with absolute values may lead to misinterpretation of CBC data. Current Interpretive Data was last revised on 2017. Blood 09/25/2024 10:4 8 PM [employer]ILITY EXTENSION SPECIALIST 09/26/2024 12:37 AM [employer]ILITY EXTENSION SPECIALIST us Najma Pires MD LAB BLOOD ORDERABLES Final Result [facility] [place] [address] * (ABNORMAL) CBC with auto differential (09/25/2024 10:48 PM [employer]IL [employer]ILITY EXTENSION SPECIALIST) WBC 9.5 3.8 - 9.9 K/cumm Hgb 12.1 11.9 - 15.5 g/dL [facility] [facility] Hct 34.4(L) 35.6 - 45.5 % [facility] Plt 81(L) 150 - 400 K/cumm [facility] MPV 12.5(H) 9.1 - 12.3 fL [facility] RBC 3.85(L) 3.90 - 5.20 M/cumm [facility] MCV 89.4 81.3 - 96.4 fL [facility] MCH 31.4 27.1 - 33.3 pg [facility] MCHC 35.2 32.3 - 35.7 g/dL [facility] RDW CV 14.6 11.1 - 14.9 % [facility] RDW SD 46.7 35.7 - 48.1 fL [facility] NRBC abs 0.00 0.00 - 0.01 K/cumm [facility] Blood 09/25/2024 10:4 8 PM [employer]ION [employer]IST 09/26/2024 12:37 AM [employer]IL [employer] EXTENSION SPECIALIST us Najma Pires MD LAB BLOOD ORDERABLES Final Result [facility] [place] [address] * (ABNORMAL) Protime-INR (09/25/2024 10:48 PM SOIL [employer]ILITY EXTENSION SPECIALIST) PT 15.5(H) 9.7 - 13.0 sec INR 1.42(H) 0.90 - 1.20 [facility] Comment: Interpretive data Oral anticoagulant therapeutic ranges: Venous thromboembolism prophylaxis or treatment: 2.0-3.0 CARDIOLOGY Standard range: 2.0-3.0 High-intensity range: 2.5-3.5 Refer to indication-specific guidelines for appropriate target ranges for prosthetic heart valve replacement. Current interpretive data was last revised on 2019. Blood 09/25/2024 10:4 8 PM [employer] EXTENSION SPECIALIST 09/26/2024 12:41 AM SOIL F[employer]ILITY EXTENSION SPECIALIST us Stuart Flores MD LAB BLOOD ORDERABLES Final Resul t [facility] [place] [address] * (ABNORMAL) Comprehensive metabolic panel (09/25/2024 10:48 PM [employer]IL [employer] EXTENSION SPECIALIST) Sodium 140 135 - 145 mmol/L Potassium, pl 2.8(L) 3.3 - 4.9 mmol/L [facility] Chloride 95(L) 97 - 110 mmol/L [facility] CO2 26 22 - 32 mmol/L [facility] Anion gap 19(H) 2 - 15 mmol/L [facility] BUN 89(H) 6 - 25 mg/dL [facility] Creatinine 5.24(H) 0.60 - 1.10 mg/dL [facility] Glucose 323(H) 70 - 199 mg/dL [facility] Comment: Interpretive Data Fasting glucose >/= [...] 2022. Calcium 10.2 8.5 - 10.3 mg/dL [facility] Bilirubin, total 2.1(H) 0.1 - 1.2 mg/dL [facility] Protein, pl 6.7 6.5 - 8.5 g/dL [facility] Albumin 3.9 3.5 - 5.0 g/dL [facility] Alk phos 97 40 - 130 Units/L [facility] ALT 15 7 - 45 Units/L [facility] AST 34 10 - 45 Units/L [facility] Blood 09/25/2024 10:4 8 PM [employer] EXTENSION SPECIALIST 09/26/2024 12:38 AM SOIL F[employer]ILITY EXTENSION SPECIALIST us Najma Pires MD LAB BLOOD ORDERABLES Final Result Performing Organization Address [facility] Co de Phone Number [facility] [place] [employer] [place] [address] * (ABNORMAL) POCT glucose (09/25/2024 8:27 PM [employer] EXTENSION SPECIALIST) Glucose, POC 318(H) 70 - 199 mg/dL Blood 09/25/2024 8:27 PM [employer] EXTENSION SPECIALIST 09/25/2024 8:27 PM [employer] EXTENSION SPECIALIST Stuart Flores MD LAB POCT ORDERABLES - DEVICE Fin al Result Performing Organization Address [facility] de Phone Number [facility] [place] [place] [address] * (ABNORMAL) POCT glucose (09/25/2024 6:12 PM SOIL [employer]ILITY EXTENSION SPECIALIST) Glucose, POC 288(H) 70 - 199 mg/dL Blood 09/25/2024 6:12 PM SO[employer] F[employer]ILITY EXTENSION SPECIALIST 09/25/2024 6:12 PM SOIL F[employer]ILITY EXTENSION SPECIALIST Result [facility] Stuart Flores MD LAB POCT ORDERABLES - DEVICE Fin al Result Performing Organization Address [facility] de Phone Number [facility] [place] [place] [address] * (ABNORMAL) POCT glucose (09/25/2024 4:12 PM SO[employer]ILITY EXTENSION SPECIALIST) Glucose, POC 263(H) 70 - 199 mg/dL Blood 09/25/2024 4:12 PM [employer]ILITY EXTENSION SPECIALIST 09/25/2024 4:12 PM SO[employer]ILITY EXTENSION SPECIALIST us Stuart Flores MD LAB POCT ORDERABLES - DEVICE Fin al Result Performing Organization Address [facility] Co de Phone Number [facility] [place] [address] * (ABNORMAL) Lactate (09/25/2024 3:24 PM [employer]IL [employer]ILITY EXTENSION SPECIALIST) Lactate 4.9(C) 0.7 - 2.0 mmol/L Blood 09/25/2024 3:24 PM [employer]ILITY EXTENSION SPECIALIST 09/25/2024 3:54 PM SO[employer]ILITY EXTENSION SPECIALIST us Stuart Flores MD LAB BLOOD ORDERABLES Final Resul t Performing Organization Address City/[facility] Co de Phone Number [facility] Department [place] [address] * Critical Result Callback Chemistry (09/25/2024 3:24 PM SOIL [employer]ILITY EXTENSION SPECIALIST) Date Notified [id number] Time Notified 1625 [facility] TestName Lactate [facility] Called/Read Back Javier [facility] Credentials RN [facility] Called By [facility]THA [facility] Blood 09/25/2024 3:24 PM [employer]ILITY EXTENSION SPECIALIST 09/25/2024 3:54 PM [employer]ILITY EXTENSION SPECIALIST us Stuart Flores MD LAB BLOOD ORDERABLES Final Resul t Performing Organization Address [facility] de Phone Number [facility] [place] [address] * Urinalysis reflex to microscopic and culture Urine (09/25/2024 3:24 PM [employer]IL [employer] EXTENSION SPECIALIST) Color, ur Yellow Yellow Clarity, ur Clear Clear [facility] Specific gravity, ur 1.017 1.003 - 1.030 [facility] pH, urine 5.5 [facility] Comment: Interpretive Data U rine pH is affected by diet, medications, systemic acid-base disturbances, and renal tubular function. pH may affect urinary stone formation. For example, urine pH below 6.0 may help reduce the tendency for calcium phosphate stones and pH greater than 6.0 may reduce the tendency for uric acid stone formation. Source: [facility] [employer] Current Interpretive Data was last revised on 2017 Protein, ur ql Negative Negative [facility] Glucose, ur ql Negative Negative [facility] Ketones, ur Negative Negative [facility] Bilirubin, ur Negative Negative [facility] Blood, ur Negative Negative [facility] Urobilinogen, ur <2.0 <2.0 mg/dL [facility] Nitrite, ur Negative Negative [facility] Leukocyte esterase, ur Negative Negative [facility] UA reflex comment Reflex conditions for microscopic UA and culture not met. [facility] Urine 09/25/2024 3:24 PM [employer]IL [employer]ILITY EXTENSION SPECIALIST 09/25/2024 3:42 PM SOIL [employer]ILITY EXTENSION SPECIALIST us Britany Knight MD LAB MICROBIOLOGY - GENERAL ORD ERABLES Final Result Performing Organization Address [facility] Co de Phone Number [facility] Department [place] [address] * Sodium, urine, random (09/25/2024 3:24 PM SOIL [employer]ILITY EXTENSION SPECIALIST) Sodium, ur 31 mmol/L Comment: Interpretive Data No reference range established. Current interpretive data was last revised 2018. Urine 09/25/2024 3:24 PM [employer]ILITY EXTENSION SPECIALIST 09/25/2024 3:54 PM SO[employer]ILITY EXTENSION SPECIALIST us Najma Pires MD LAB URINE ORDERABLES Final Result Performing Organization Address [facility] Co de Phone Number [facility] Department [place] [address] * (ABNORMAL) POCT glucose (09/25/2024 2:41 PM SO[employer]ILITY EXTENSION SPECIALIST) Glucose, POC 315(H) 70 - 199 mg/dL Blood 09/25/2024 2:41 PM [employer]ILITY EXTENSION SPECIALIST 09/25/2024 2:41 PM SO[employer] F[employer]ILITY EXTENSION SPECIALIST us Stuart Flores MD LAB POCT ORDERABLES - DEVICE Fin al Result Performing Organization Address [facility] Co de Phone Number [facility] [place] [address] * (ABNORMAL) POCT glucose (09/25/2024 12:32 PM SOIL [employer]ILITY EXTENSION SPECIALIST) [facility] Glucose, POC 343(H) 70 - 199 mg/dL Blood 09/25/2024 12:3 2 PM SO[employer]ILITY EXTENSION SPECIALIST 09/25/2024 12:32 PM SO[employer] FERTILITY EXTENSION SPECIALIST us Stuart Flores MD LAB POCT ORDERABLES - DEVICE Fin al Result Performing Organization Address [facility] de Phone Number [facility] [place] [address] * (ABNORMAL) Troponin I high-sensitivity 4-hour (09/25/2024 11:38 AM SOIL [employer]ILITY EXTENSION SPECIALIST) [facility] Trop I hs 80(H) <=17 ng/L Comment: Interpretive Data For further hscTnI resources including the diagnostic algorithm and an aid in interpretation, copy and paste this link: https://bjhlab.testcatalog.org/show/hsTrop-1 Current Interpretive Data last revised 2020. Trop I hs delta 6 ng/L [facility] Trop I hs interp Equivocal [facility] Blood 09/25/2024 11:3 8 AM SO[employer]ILITY EXTENSION SPECIALIST 09/25/2024 12:27 PM SOIL F[employer]ILITY EXTENSION SPECIALIST us Stuart Flores MD LAB BLOOD ORDERABLES Final Resul t Performing Organization Address [facility] Co de Phone Number [facility] Department [place] [address] * (ABNORMAL) POCT glucose (09/25/2024 11:14 AM SOIL F[employer]ILITY EXTENSION SPECIALIST) [facility] Glucose, POC 312(H) 70 - 199 mg/dL Blood 09/25/2024 11:1 4 AM SO[employer]ILITY EXTENSION SPECIALIST 09/25/2024 11:14 AM SOIL F[employer]ILITY EXTENSION SPECIALIST us Stuart Flores MD LAB POCT ORDERABLES - DEVICE Fin al Result Performing Organization Address [facility]/ZIP Co de Phone Number [facility] [place] [place] [address] * (ABNORMAL) Troponin I high-sensitivity 2-hour (09/25/2024 9:51 AM SOIL [employer]ILITY EXTENSION SPECIALIST) Trop I hs 62(H) <=17 ng/L Comment: Previous critical value noted within 48 hours ago. Interpretive Data For further hscTnI resources including the diagnostic algorithm and an aid in interpretation, copy and paste this link: https://bjhlab.testcatalog.org/show/hsTrop-1 Current Interpretive Data last revised 2020. Trop I hs delta -12(C) ng/L [facility] Trop I hs interp Significa nt(C) [facility] Blood 09/25/2024 9:51 AM SOIL F[employer]ILITY EXTENSION SPECIALIST 09/25/2024 10:22 AM SOIL F[employer]ILITY EXTENSION SPECIALIST us Stuart Flores MD LAB BLOOD ORDERABLES Final Resul t Performing Organization Address [facility] [place] [address] * Critical result callback Cardio chemistry (09/25/2024 9:51 AM SOIL F[employer]ILITY EXTENSION SPECIALIST) Date Notified [id number] Time Notified 1105 [facility] Test name Trop I hs 2hr [facility] Called/Read Back Javier [facility] Credentials RN [facility] Called By PD [facility] Blood 09/25/2024 9:51 AM SOIL FERTILITY EXTENSION SPECIALIST 09/25/2024 10:22 AM SOIL FERTILITY EXTENSION SPECIALIST us Stuart Flores MD LAB BLOOD ORDERABLES Final Resul t Performing Organization Address City/[facility]/ZIP Co de Phone Number [facility] [place] [employer] [place] [address] * (ABNORMAL) POCT glucose (09/25/2024 9:19 AM SOIL F[employer]ILITY EXTENSION SPECIALIST) Glucose, POC 260(H) 70 - 199 mg/dL Blood 09/25/2024 9:19 AM SOIL FERTILITY EXTENSION SPECIALIST 09/25/2024 9:19 AM SOIL FERTILITY EXTENSION SPECIALIST us Stuart Flores MD LAB POCT ORDERABLES - DEVICE Fin al Result Performing Organization Address [facility] de Phone Number [facility] [place] [place] [address] * (ABNORMAL) Troponin I high-sensitivity series (baseline, 2hr, 4hr, 6hr) (09/25/2024 7:44 AM SOIL F[employer]ILITY EXTENSION SPECIALIST) Pathologist [facility] Trop I hs 74(H) <=17 ng/L Comment: Interpretive Data For further hscTnI resources including the diagnostic algorithm and an aid in interpretation, copy and paste this link: https://bjhlab.testcatalog.org/show/hsTrop-[email or web address] Current Interpretive Data last revised 2020. Blood 09/25/2024 7:44 AM SOIL F[employer]ILITY EXTENSION SPECIALIST 09/25/2024 7:57 AM SOIL FERTILITY EXTENSION SPECIALIST us Stuart Flores MD LAB BLOOD ORDERABLES Final Resul t Performing Organization Address [facility] de Phone Number [facility] [place] [place] [address] * (ABNORMAL) Lactate (09/25/2024 7:44 AM SOIL FERTILITY EXTENSION SPECIALIST) [facility] Lactate 3.6(H) 0.7 - 2.0 mmol/L Blood 09/25/2024 7:44 AM SOIL FERTILITY EXTENSION SPECIALIST 09/25/2024 7:57 AM SOIL FERTILITY EXTENSION SPECIALIST us Stuart Flores MD LAB BLOOD ORDERABLES Final Resul t Performing Organization Address [facility] de Phone Number [facility] [place] [place] [address] * (ABNORMAL) POCT glucose (09/25/2024 7:32 AM SOIL FERTILITY EXTENSION SPECIALIST) Glucose, POC 311(H) 70 - 199 mg/dL Blood 09/25/2024 7:32 AM SOIL FERTILITY EXTENSION SPECIALIST 09/25/2024 7:32 AM SOIL FERTILITY EXTENSION SPECIALIST us Stuart Flores MD LAB POCT ORDERABLES - DEVICE Fin al Result Performing Organization Address [facility] de Phone Number [facility] [place] [place] [address] * (ABNORMAL) POCT glucose (09/25/2024 4:12 AM SOIL FERTILITY EXTENSION SPECIALIST) Glucose, POC 334(H) 70 - 199 mg/dL Blood 09/25/2024 4:12 AM SOIL FERTILITY EXTENSION SPECIALIST 09/25/2024 4:12 AM SOIL FERTILITY EXTENSION SPECIALIST us Stuart Flores MD LAB POCT ORDERABLES - DEVICE Fin al Result Performing Organization Address [facility] de Phone Number [facility] [place] [place] [address] * (ABNORMAL) POCT glucose (09/25/2024 2:52 AM SOIL F[employer]ILITY EXTENSION SPECIALIST) Glucose, POC 360(H) 70 - 199 mg/dL Blood 09/25/2024 2:52 AM SOIL FERTILITY EXTENSION SPECIALIST 09/25/2024 2:52 AM SOIL FERTILITY EXTENSION SPECIALIST us Stuart Flores MD LAB POCT ORDERABLES - DEVICE Fin al Result Performing Organization Address [facility] de Phone Number [facility] [place] [place] [address] * XR Abdomen Ap 1 Vw (09/25/2024 1:32 AM SOIL F[employer]ILITY EXTENSION SPECIALIST) Anatomical Region Laterality Modality Body, Abdomen N/A Digital Radiogra phy 09/25/2024 8:29 AM SOIL F[employer]ILITY EXTENSION SPECIALIST Impressions 09/25/2024 4:40 PM SOIL [employer]ILITY EXTENSION SPECIALIST Gastric tube tip coils over the fundus [...] Nessa Dodson M.D. Narrative 09/25/2024 4:40 PM SOIL FERTILITY EXTENSION SPECIALIST EXAMINATION: Abdomen, one view. HISTORY: Intubation of [...] * (ABNORMAL) POCT glucose (09/25/2024 12:11 AM SOIL FERTILITY EXTENSION SPECIALIST) Glucose, POC 390(H) 70 - 199 mg/dL Comment:Glu2: TYRA/ Notified Glucose comment 1 Glu2: RN/MD Notified [facility] Blood 09/25/2024 12:1 1 AM SOIL F[employer]ILITY EXTENSION SPECIALIST 09/25/2024 12:11 AM SOIL FERTILITY EXTENSION SPECIALIST Stuart Flores MD LAB POCT ORDERABLES - DEVICE Fin al Result Performing Organization Address [facility] de Phone Number [facility] [place] [address] * (ABNORMAL) Troponin I high-sensitivity 6-hour (09/24/2024 11:56 PM SOIL F[employer]ILITY EXTENSION SPECIALIST) Pathologist [facility] Trop I hs 57(H) <=17 ng/L Comment: Interpretive Data For further hscTnI resources including the diagnostic algorithm and an aid in interpretation, copy and paste this link: https://bjhlab.testcatalog.org/show/hsTrop-1 Current Interpretive Data last revised 2020. Trop I hs delta See Comment ng/L [facility] Comment:Inappropriate collec tion time to report a delta. Trop I hs pct delta See Comment % [facility] Comment:Inappropriate collec tion time to report a delta. Trop I hs interp See Comment [facility] Comment:Inappropriate collec tion time to report a delta. Blood 09/24/2024 11:5 6 PM SOIL F[employer]ILITY EXTENSION SPECIALIST 09/25/2024 12:10 AM SOIL FERTILITY EXTENSION SPECIALIST Britany Knight MD LAB BLOOD ORDERABLES Final Res ult Performing Organization Address [facility] Co de Phone Number [facility] [place] [address] * (ABNORMAL) eGFR (09/24/2024 11:56 PM SOIL FERTILITY EXTENSION SPECIALIST) [facility] eGFR 13(L) >=60 mL/min/1. 73 m2 Comment: [...] reviewed 2021. Blood 09/24/2024 11:5 6 PM SOIL F[employer]ILITY EXTENSION SPECIALIST 09/25/2024 12:21 AM SOIL FERTILITY EXTENSION SPECIALIST us Najma Pires MD LAB BLOOD ORDERABLES Final Result [facility] [place] [address] * (ABNORMAL) Differential, auto (09/24/2024 11:56 PM SOIL [employer]ILITY EXTENSION SPECIALIST) Neutrophil abs 12.8(H) 1.5 - 6.5 K/cumm Imm gran abs 0.1 0.0 - 0.1 K/cumm [facility] Lymphocyte abs 0.9 0.8 - 3.3 K/cumm [facility] Monocyte abs 1.2(H) 0.2 - 0.8 K/cumm [facility] Eosinophil abs 0.1 0.0 - 0.5 K/cumm [facility] Basophil abs 0.0 0.0 - 0.1 K/cumm [facility] Neutrophil pct 84.6 % [facility] Comment: Interpretive Data Percent cell count reference ranges are not reported, since discordance with absolute values may lead to misinterpretation of CBC data. Current Interpretive Data was last revised on 2017. Imm gran pct 0.5 % [facility] Comment: Interpretive Data Percent cell count reference ranges are not reported, since discordance with absolute values may lead to misinterpretation of CBC data. Current Interpretive Data was last revised on 2017. Lymphocyte pct 6.1 % [facility] Comment: Interpretive Data Percent cell count reference ranges are not reported, since discordance with absolute values may lead to misinterpretation of CBC data. Current Interpretive Data was last revised on 2017. Monocyte pct 7.6 % [facility] Comment: Interpretive Data Percent cell count reference ranges are not reported, since discordance with absolute values may lead to misinterpretation of CBC data. Current Interpretive Data was last revised on 2017. Eosinophil pct 0.9 % [facility] Comment: Interpretive Data Percent cell count reference ranges are not reported, since discordance with absolute values may lead to misinterpretation of CBC data. Current Interpretive Data was last revised on 2017. Basophil pct 0.3 % [facility] Comment: Interpretive Data Percent cell count reference ranges are not reported, since discordance with absolute values may lead to misinterpretation of CBC data. Current Interpretive Data was last revised on 2017. Blood 09/24/2024 11:5 6 PM [employer]IL [employer]ILITY EXTENSION SPECIALIST 09/25/2024 12:10 AM SOIL F[employer]ILITY EXTENSION SPECIALIST us Najma Pires MD LAB BLOOD ORDERABLES Final Result [facility] [place] [address] * (ABNORMAL) CBC with auto differential (09/24/2024 11:56 PM SOIL [employer]ILITY EXTENSION SPECIALIST) WBC 15.1(H) 3.8 - 9.9 K/cumm Hgb 15.3 11.9 - 15.5 g/dL [facility] Hct 42.8 35.6 - 45.5 % [facility] Plt 93(L) 150 - 400 K/cumm [facility] MPV 12.4(H) 9.1 - 12.3 fL [facility] RBC 4.80 3.90 - 5.20 M/cumm [facility] MCV 89.2 81.3 - 96.4 fL [facility] MCH 31.9 27.1 - 33.3 pg [facility] MCHC 35.7 32.3 - 35.7 g/dL [facility] RDW CV 14.4 11.1 - 14.9 % [facility] RDW SD 46.5 35.7 - 48.1 fL [facility] NRBC abs 0.00 0.00 - 0.01 K/cumm [facility] Blood 09/24/2024 11:5 6 PM SOIL F[employer]ILITY EXTENSION SPECIALIST 09/25/2024 12:10 AM SO[employer]ILITY EXTENSION SPECIALIST Najma Pires MD LAB BLOOD ORDERABLES Final Result Performing Organization Address City/[facility] Co de Phone Number [facility] [place] [address] * [id number], Tumor Marker (09/24/2024 11:56 PM SOIL [employer]ILITY EXTENSION SPECIALIST) alpha Fetoprotein <2.0 <=8.3 ng/mL Comment: Interpretive [...] 2018;[id number] Katya House et al. Clin Chem 2014;[id number]. Current interpretive data was last revised 2022. Blood 09/24/2024 11:5 6 PM SOIL F[employer]ILITY EXTENSION SPECIALIST 09/25/2024 12:09 AM SOIL FERTILITY EXTENSION SPECIALIST Najma Pires MD LAB BLOOD ORDERABLES Final Result Performing Organization Address City/[facility]/ZIP Co de Phone Number [facility] Department [place] [employer] [place] [address] * (ABNORMAL) Protime-INR (09/24/2024 11:56 PM SOIL FERTILITY EXTENSION SPECIALIST) Pathologist [facility] PT 14.3(H) 9.7 - 13.0 sec INR 1.32(H) 0.90 - 1.20 [facility] Comment: Interpretive data Oral anticoagulant therapeutic ranges: Venous thromboembolism prophylaxis or treatment: 2.0-3.0 CARDIOLOGY Standard range: 2.0-3.0 High-intensity range: 2.5-3.5 Refer to indication-specific guidelines for appropriate target ranges for prosthetic heart valve replacement. Current interpretive data was last revised on 2019. Blood 09/24/2024 11:5 6 PM SOIL F[employer]ILITY EXTENSION SPECIALIST 09/25/2024 12:15 AM SOIL FERTILITY EXTENSION SPECIALIST us Stuart Flores MD LAB BLOOD ORDERABLES Final Resul t Performing Organization Address [facility] Co de Phone Number [facility] [place] [address] * (ABNORMAL) Phosphorus (09/24/2024 11:56 PM SOIL FERTILITY EXTENSION SPECIALIST) [facility] Phosphorus, pl 6.9(H) 2.3 - 4.5 mg/dL Blood 09/24/2024 11:5 6 PM SO[employer]ILITY EXTENSION SPECIALIST 09/25/2024 12:07 AM SOIL FERTILITY EXTENSION SPECIALIST Result [facility] Najma Pires MD LAB BLOOD [place] [address] * Magnesium (09/24/2024 11:56 PM SOIL FERTILITY EXTENSION SPECIALIST) [facility] Magnesium 2.4 1.4 - 2.5 mg/dL Blood 09/24/2024 11:5 6 PM SOIL F[employer]ILITY EXTENSION SPECIALIST 09/25/2024 12:21 AM SOIL FERTILITY EXTENSION SPECIALIST us Stuart Flores MD LAB BLOOD ORDERABLES Final Resul t [facility] [place] [address] * (ABNORMAL) Comprehensive metabolic panel (09/24/2024 11:56 PM SOIL FERTILITY EXTENSION SPECIALIST) Sodium 136 135 - 145 mmol/L Potassium, pl 3.5 3.3 - 4.9 mmol/L [facility] Chloride 92(L) 97 - 110 mmol/L [facility] CO2 25 22 - 32 mmol/L [facility] Anion gap 19(H) 2 - 15 mmol/L [facility] BUN 77(H) 6 - 25 mg/dL [facility] Creatinine 3.63(H) 0.60 - 1.10 mg/dL [facility] Glucose 410(H) 70 - 199 mg/dL [facility] Comment: Interpretive Data Fasting glucose >/= [...] 2022. Calcium 10.6(H) 8.5 - 10.3 mg/dL [facility] Bilirubin, total 2.3(H) 0.1 - 1.2 mg/dL [facility] Protein, pl 7.0 6.5 - 8.5 g/dL [facility] Albumin 3.3(L) 3.5 - 5.0 g/dL [facility] Alk phos 122 40 - 130 Units/L [facility] ALT 21 7 - 45 Units/L [facility] AST 47(H) 10 - 45 Units/L [facility] Blood 09/24/2024 11:5 6 PM [employer] EXTENSION SPECIALIST 09/25/2024 12:07 AM SOIL F[employer]ILITY EXTENSION SPECIALIST us Najma Pires MD LAB BLOOD ORDERABLES Final Result [facility] [place] [address] * (ABNORMAL) Sepsis Lactate w/ Reflex (09/24/2024 11:55 PM SOIL FERTILITY EXTENSION SPECIALIST) Sepsis Lactate 5.1(C) 0.7 - 2.0 mmol/L Blood 09/24/2024 11:5 5 PM [employer]ILITY EXTENSION SPECIALIST 09/25/2024 12:16 AM SOIL FERTILITY EXTENSION SPECIALIST Britany Knight MD LAB BLOOD ORDERABLES Final Res ult Performing Organization Address City/[facility]/ZIP Co de Phone Number [facility] [place] [address] * Critical Result Callback Chemistry (09/24/2024 11:55 PM SOIL FERTILITY EXTENSION SPECIALIST) Date Notified [id number] Time Notified 38 [facility] TestName Sepsis Lactate [facility] Called/Read Back Katia [facility] Credentials RN [facility] Called By SHASTA [facility] Blood 09/24/2024 11:5 5 PM SOIL FERTILITY EXTENSION SPECIALIST 09/25/2024 12:16 AM [employer]IL [employer]ILITY EXTENSION SPECIALIST Britany Knight MD LAB BLOOD ORDERABLES Final Res ult [facility] [place] [address] * (ABNORMAL) POCT glucose (09/24/2024 11:08 PM SOIL FERTILITY EXTENSION SPECIALIST) Glucose, POC 363(H) 70 - 199 mg/dL Blood 09/24/2024 11:0 8 PM SOIL FERTILITY EXTENSION SPECIALIST 09/24/2024 11:08 PM SOIL FERTILITY EXTENSION SPECIALIST us Stuart Flores MD LAB POCT ORDERABLES - DEVICE Fin al Result [facility] [place] [address] * XR Chest 1 View (09/24/2024 11:02 PM SOIL F[employer]ILITY EXTENSION SPECIALIST) Anatomical Region Laterality Modality Body, Chest N/A Computed Radiogr aphy 09/25/2024 10:0 6 AM SOIL F[employer]ILITY EXTENSION SPECIALIST Impressions 09/25/2024 10:06 AM SOIL FERTILITY EXTENSION SPECIALIST Comparison is made to prior from 09/24/2024. Nasogastric tube terminates below the diaphragms. Heart size is normal. Lungs are clear. No pleural effusion or pneumothorax. Electronically signed by: Louie Lynne M.D. Narrative 09/25/2024 10:06 AM SOIL FERTILITY EXTENSION SPECIALIST EXAMINATION: 1 view chest radiograph Procedure Note [...] US Liver Doppler Complete (09/24/2024 9:07 PM SOIL FERTILITY EXTENSION SPECIALIST) Anatomical Region Laterality Modality Vascular N/A Ultrasound 09/25/2024 8:56 AM SOIL [employer]ILITY EXTENSION SPECIALIST Impressions 09/25/2024 12:48 PM SOIL FERTILITY EXTENSION SPECIALIST 1. Reversed flow within the portosystemic confluence, [...] Juan Morris M.D. Narrative 09/25/2024 12:48 PM SOIL F[employer]ILITY EXTENSION SPECIALIST EXAMINATION: US LIVER DOPPLER COMPLETE HISTORY: 63 [...] * (ABNORMAL) POCT glucose (09/24/2024 8:08 PM SOIL FERTILITY EXTENSION SPECIALIST) [facility] Signature Glucose, POC 384(H) 70 - 199 mg/dL Comment:Glu2: RN/MD Notified Glucose comment 1 Glu2: RN/MD Notified [facility] Blood 09/24/2024 8:08 PM SOIL FERTILITY EXTENSION SPECIALIST 09/24/2024 8:08 PM SOIL FERTILITY EXTENSION SPECIALIST Stuart Flores MD LAB POCT ORDERABLES - DEVICE Fin al Result [facility] [place] [address] * RI CRITICAL CARE ILL/INJURED PATIENT INIT 30-74 MIN (09/24/2024 4:23 PM SOIL [employer]ILITY EXTENSION SPECIALIST) Narrative Paxton Hawk MD - 09/24/2024 4:23 PM SOIL [employer]ILITY EXTENSION SPECIALIST Paxton Hawk MD 09/24/2024 4:25 PM Critical [...] Sepsis Lactate w/ Reflex (09/24/2024 2:37 PM SOIL [employer]ILITY EXTENSION SPECIALIST) Sepsis Lactate 4.1(C) 0.7 - 2.0 mmol/L Comment:reviewed Blood 09/24/2024 2:37 PM SOIL FERTILITY EXTENSION SPECIALIST 09/24/2024 2:44 PM SOIL FERTILITY EXTENSION SPECIALIST us Britany Knight MD LAB BLOOD ORDERABLES Final Res ult [facility] [place] [address] * Critical Result Callback Chemistry (09/24/2024 2:37 PM SOIL FERTILITY EXTENSION SPECIALIST) Date Notified 20240924 Time Notified 1451 CHARISSA DUNNE TestName Sepsis Lactate CHARISSA SAHNI Called/Read Back Britany Knight Credentials TYRA SAHNI Called By ra CHARISSA SAHNI Blood 09/24/2024 2:37 PM SOIL FERTILITY EXTENSION SPECIALIST 09/24/2024 2:44 PM SOIL F[employer]ILITY EXTENSION SPECIALIST Britany Knight MD LAB BLOOD ORDERABLES Final Res ult Performing Organization Address [facility] [place] [address] * (ABNORMAL) Troponin I high-sensitivity 2-hour (09/24/2024 2:36 PM SOIL [employer]ILITY EXTENSION SPECIALIST) Trop I hs 26(H) <=17 ng/L Comment: Interpretive Data For further hscTnI resources including the diagnostic algorithm and an aid in interpretation, copy and paste this link: https://bjhlab.testcatalog.org/show/hsTrop-1 Current Interpretive Data last revised 2020. Trop I hs delta 2 ng/L [facility] Trop I hs interp Insignificant [facility] Blood 09/24/2024 2:36 PM SOIL FERTILITY EXTENSION SPECIALIST 09/24/2024 3:01 PM SOIL FERTILITY EXTENSION SPECIALIST Britany Knight MD LAB BLOOD ORDERABLES Final Res ult Performing Organization Address [facility] [place] [address] * Blood culture Blood (09/24/2024 2:36 PM SOIL FERTILITY EXTENSION SPECIALIST) Report Final Report: No growth Blood 09/24/2024 2:36 PM SOIL FERTILITY EXTENSION SPECIALIST 09/24/2024 2:44 PM SOIL FERTILITY EXTENSION SPECIALIST Narrative [facility] - 09/29/2024 3:10 PM SO[employer]ILITY EXTENSION SPECIALIST Collection->Peripheral 1. Blood cultures are incubated for [...] performance characteristics have been verified by the [facility]. For questions about this culture, contact the Microbiology Laboratory at [phone]. Interpretive data was last revised on 24. Britany Knight MD LAB MICROBIOLOGY - GENERAL ORD ERABLES Final Result [facility] [place] [address] * Respiratory pathogen panel Nasopharyngeal (09/24/2024 1:39 PM SOIL F[employer]ILITY EXTENSION SPECIALIST) Pathologist [facility] Influenza A RNA Not Detected Not Detected Influenza B RNA Not Detected Not Detected [facility] RSV RNA Not Detected Not Detected [facility] COVID-19 RNA Not Detected Not Detected [facility] Coronavirus 229E RNA Not Detected Not Detected [facility] Coronavirus HKU1 RNA Not Detected Not Detected [facility] Coronavirus NL63 RNA Not Detected Not Detected [facility] Coronavirus OC43 RNA Not Detected Not Detected [facility] Adenovirus DNA Not Detected Not Detected [facility] Metapneumovirus RNA Not Detected Not Detected [facility] Rhinovirus/Enterov irus RNA Not Detected Not Detected [facility] Parainfluenza 1 RNA Not Detected Not Detected [facility] Parainfluenza 2 RNA Not Detected Not Detected [facility] Parainfluenza 3 RNA Not Detected Not Detected [facility] Parainfluenza 4 RNA Not Detected Not Detected [facility] B. pertussis DNA Not Detected Not Detected [facility] B. parapertussis DNA Not Detected Not Detected [facility] C. pneumoniae DNA Not Detected Not Detected [facility] M. pneumoniae DNA Not Detected Not Detected [facility] Nasopharyngeal 09/24/2024 1: 39 PM [employer]IL [employer]ILITY EXTENSION SPECIALIST 09/24/2024 1:49 PM SOIL FERTILITY EXTENSION SPECIALIST Diane [facility] - 09/24/2024 3:12 PM SOIL FERTILITY EXTENSION SPECIALIST Is the Patient experiencing symptoms consistent with COVID?->Yes Surveillance testing for transplant patient?->No Interpretive Data [employer] Film[employer] Respiratory Panel (RP2.1) assay is a [...] assay has FDA clearance for testing of PIPELINE TECHNICIAN swabs. The performance of additional specimen types has been assessed by the performing laboratory. The performance characteristics of this assay have been determined by [facility]. Current interpretive data was last revised on 22. Britany Knight MD LAB MICROBIOLOGY - GENERAL ORD ERABLES Final Result [facility] [place] [address] * Blood culture Blood (09/24/2024 1:39 PM SOIL FERTILITY EXTENSION SPECIALIST) Report Final Report: No growth Blood 09/24/2024 1:39 PM SOIL FERTILITY EXTENSION SPECIALIST 09/24/2024 1:50 PM SOIL FERTILITY EXTENSION SPECIALIST Narrative [facility] - 09/29/2024 3:05 PM SOIL FERTILITY EXTENSION SPECIALIST Collection->Peripheral 1. Blood cultures are incubated for [...] performance characteristics have been verified by the [facility]. For questions about this culture, contact the Microbiology Laboratory at [phone]. Interpretive data was last revised on 24. Britany Knight MD LAB MICROBIOLOGY - GENERAL ORD ERABLES Final Result Performing Organization Address City/[facility]/ZIP Co de Phone Number [facility] [place] [address] * XR Chest 1 Vw Portable (09/24/2024 12:59 PM SOIL FERTILITY EXTENSION SPECIALIST) Anatomical Region Laterality Modality Body, Chest N/A Computed Radiogr aphy 09/24/2024 1:05 PM SOIL FERTILITY EXTENSION SPECIALIST Impressions 09/24/2024 1:05 PM SOIL FERTILITY EXTENSION SPECIALIST Comparison April 2024. Small lung volumes with mild scattered atelectasis throughout the lung. Given some limitations of portable technique, No focal consolidation suspicious for pneumonia. No pulmonary edema, pleural effusion, or pneumothorax. The heart and mediastinal contours are unchanged. Electronically signed by: Mohinder Ferro M.D. Narrative 09/24/2024 1:05 PM SOIL FERTILITY EXTENSION SPECIALIST EXAMINATION: 1 view chest radiograph Procedure Note [...] * POCT ketone, blood (09/24/2024 12:40 PM SOIL FERTILITY EXTENSION SPECIALIST) Beta-Hydroxybut yrate, POC 0.4 0.0 - 0.5 mmol/L Blood 09/24/2024 12:4 0 PM SOIL FERTILITY EXTENSION SPECIALIST 09/24/2024 12:40 PM SOIL FERTILITY EXTENSION SPECIALIST Stuart Flores MD LAB POCT ORDERABLES - DEVICE Fin al Result [facility] [place] [address] * (ABNORMAL) POCT glucose (09/24/2024 12:37 PM SOIL FERTILITY EXTENSION SPECIALIST) Glucose, POC 329(H) 70 - 199 mg/dL Blood 09/24/2024 12:3 7 PM SOIL FERTILITY EXTENSION SPECIALIST 09/24/2024 12:37 PM SOIL FERTILITY EXTENSION SPECIALIST Louie Malone MD LAB POCT ORDERABLES - DEVICE Final Result Performing Organization Address [facility] Co de Phone Number [facility] [place] [address] * (ABNORMAL) Troponin I high-sensitivity series (baseline, 2hr, 4hr, 6hr) (09/24/2024 12:35 PM SOIL FERTILITY EXTENSION SPECIALIST) Trop I hs 24(H) <=17 ng/L Comment: Interpretive Data For further hscTnI resources including the diagnostic algorithm and an aid in interpretation, copy and paste this link: https://bjhlab.testcatalog.org/show/hsTrop-1 Current Interpretive Data last revised 2020. Blood 09/24/2024 12:3 5 PM SOIL FERTILITY EXTENSION SPECIALIST 09/24/2024 12:59 PM SOIL FERTILITY EXTENSION SPECIALIST Britany Knight MD LAB BLOOD ORDERABLES Final Res ult Performing Organization Address [facility] Co de Phone Number [facility] [place] [address] * (ABNORMAL) Sepsis Lactate w/ Reflex (09/24/2024 12:35 PM SOIL FERTILITY EXTENSION SPECIALIST) Sepsis Lactate 4.4(C) 0.7 - 2.0 mmol/L Blood 09/24/2024 12:3 5 PM SOIL FERTILITY EXTENSION SPECIALIST 09/24/2024 12:48 PM SOIL FERTILITY EXTENSION SPECIALIST Britany Knight MD LAB BLOOD ORDERABLES Final Res ult Performing Organization Address [facility] Co de Phone Number [facility] [place] [address] * (ABNORMAL) eGFR (09/24/2024 12:35 PM SOIL FERTILITY EXTENSION SPECIALIST) [facility] eGFR 18(L) >=60 mL/min/1. 73 m2 Comment: [...] reviewed 2021. Blood 09/24/2024 12:3 5 PM SOIL FERTILITY EXTENSION SPECIALIST 09/24/2024 12:59 PM SOIL FERTILITY EXTENSION SPECIALIST us Britany Knight MD LAB BLOOD ORDERABLES Final Res ult [facility] [place] [address] * Differential, auto (09/24/2024 12:35 PM SOIL FERTILITY EXTENSION SPECIALIST) [facility] Neutrophil abs 5.4 1.5 - 6.5 K/cumm Imm gran abs 0.0 0.0 - 0.1 K/cumm [facility] Lymphocyte abs 0.9 0.8 - 3.3 K/cumm [facility] Monocyte abs 0.6 0.2 - 0.8 K/cumm [facility] Eosinophil abs 0.2 0.0 - 0.5 K/cumm [facility] Basophil abs 0.0 0.0 - 0.1 K/cumm [facility] Neutrophil pct 74.8 % [facility] Comment: Interpretive Data Percent cell count reference ranges are not reported, since discordance with absolute values may lead to misinterpretation of CBC data. Current Interpretive Data was last revised on 2017. Imm gran pct 0.6 % [facility] Comment: Interpretive Data Percent cell count reference ranges are not reported, since discordance with absolute values may lead to misinterpretation of CBC data. Current Interpretive Data was last revised on 2017. Lymphocyte pct 12.7 % [facility] Comment: Interpretive Data Percent cell count reference ranges are not reported, since discordance with absolute values may lead to misinterpretation of CBC data. Current Interpretive Data was last revised on 2017. Monocyte pct 8.7 % [facility] Comment: Interpretive Data Percent cell count reference ranges are not reported, since discordance with absolute values may lead to misinterpretation of CBC data. Current Interpretive Data was last revised on 2017. Eosinophil pct 2.9 % [facility] Comment: Interpretive Data Percent cell count reference ranges are not reported, since discordance with absolute values may lead to misinterpretation of CBC data. Current Interpretive Data was last revised on 2017. Basophil pct 0.3 % [facility] Comment: Interpretive Data Percent cell count reference ranges are not reported, since discordance with absolute values may lead to misinterpretation of CBC data. Current Interpretive Data was last revised on 2017. Blood 09/24/2024 12:3 5 PM SOIL FERTILITY EXTENSION SPECIALIST 09/24/2024 12:59 PM SOIL FERTILITY EXTENSION SPECIALIST us Britany Knight MD LAB BLOOD ORDERABLES Final Res ult [facility] [place] [address] * Critical Result Callback Chemistry (09/24/2024 12:35 PM SOIL FERTILITY EXTENSION SPECIALIST) Date Notified 20240924 Time Notified 1253 CHARISSA DUNNE TestName Sepsis Lactate CHARISSA DUNNE Called/Read Back Lauren DUNNE Credentials RN CHARISSA SAHNI Called By kati DUNNE Blood 09/24/2024 12:3 5 PM SOIL FERTILITY EXTENSION SPECIALIST 09/24/2024 12:48 PM SOIL FERTILITY EXTENSION SPECIALIST Britany Knight MD LAB BLOOD ORDERABLES Final Res ult Performing Organization Address [facility] Co de Phone Number [facility] [place] [address] * (ABNORMAL) CBC with auto differential (09/24/2024 12:35 PM SOIL FERTILITY EXTENSION SPECIALIST) [facility] WBC 7.2 3.8 - 9.9 K/cumm Hgb 14.7 11.9 - 15.5 g/dL [facility] Hct 42.0 35.6 - 45.5 % [facility] Plt 101(L) 150 - 400 K/cumm [facility] MPV 12.0 9.1 - 12.3 fL [facility] RBC 4.72 3.90 - 5.20 M/cumm [facility] MCV 89.0 81.3 - 96.4 fL [facility] MCH 31.1 27.1 - 33.3 pg [facility] MCHC 35.0 32.3 - 35.7 g/dL [facility] RDW CV 14.5 11.1 - 14.9 % [facility] RDW SD 46.3 35.7 - 48.1 fL [facility] NRBC abs 0.00 0.00 - 0.01 K/cumm [facility] Blood 09/24/2024 12:3 5 PM SOIL FERTILITY EXTENSION SPECIALIST 09/24/2024 12:59 PM SOIL FERTILITY EXTENSION SPECIALIST Britany Knight MD LAB BLOOD ORDERABLES Final Res ult Performing Organization Address City/[facility]/ZIP Co de Phone Number [facility] [place] [address] * aPTT (09/24/2024 12:35 PM SOIL FERTILITY EXTENSION SPECIALIST) Pathologist [facility] aPTT 33 28 - 38 sec Comment: Interpretive Data Heparin therapeutic range: 66.0 - 100.0 seconds. Range based on correlation with therapeutic heparin activity range of 0.3 - 0.7 Units/mL. Current interpretive data was last revised on 2023. Blood 09/24/2024 12:3 5 PM SOIL FERTILITY EXTENSION SPECIALIST 09/24/2024 12:52 PM SOIL FERTILITY EXTENSION SPECIALIST Britany Knight MD LAB BLOOD ORDERABLES Final Res ult Performing Organization Address [facility] de Phone Number [facility] [place] [address] * (ABNORMAL) Protime-INR (09/24/2024 12:35 PM SOIL FERTILITY EXTENSION SPECIALIST) PT 14.1(H) 9.7 - 13.0 sec INR 1.30(H) 0.90 - 1.20 [facility] Comment: Interpretive data Oral anticoagulant therapeutic ranges: Venous thromboembolism prophylaxis or treatment: 2.0-3.0 CARDIOLOGY Standard range: 2.0-3.0 High-intensity range: 2.5-3.5 Refer to indication-specific guidelines for appropriate target ranges for prosthetic heart valve replacement. Current interpretive data was last revised on 2019. Blood 09/24/2024 12:3 5 PM SOIL FERTILITY EXTENSION SPECIALIST 09/24/2024 12:52 PM SOIL FERTILITY EXTENSION SPECIALIST Britany Knight MD LAB BLOOD ORDERABLES Final Res ult Performing Organization Address [facility] de Phone Number [facility] [place] [address] * Type and screen (09/24/2024 12:35 PM SOIL FERTILITY EXTENSION SPECIALIST) Rosemarie, indirect Negative ABO Rh A Positive [facility] Blood 09/24/2024 12:3 5 PM SOIL FERTILITY EXTENSION SPECIALIST 09/24/2024 1:15 PM SOIL FERTILITY EXTENSION SPECIALIST [facility]ative [facility] - 09/24/2024 2:15 PM SOIL FERTILITY EXTENSION SPECIALIST Has the patient had Daratumumab or Isatuximab in the past 6 months?->Unknown Result [facility] Britany Knight MD LAB BLOOD BANK TEST ORDERABLES Final Result Performing Organization Address [facility] Co de Phone Number [facility] [place] [address] * Blood gas, venous (09/24/2024 12:35 PM SOIL FERTILITY EXTENSION SPECIALIST) pH, Venous 7.39 7.32 - 7.43 PCO2, Venous 48 40 - 50 mmHg [facility] PO2, Venous 37 mmHg [facility] Comment: Interpretive Data No Reference Range Established Current Interpretive Data was last revised on 2017. HCO3 Venous, Calculated 30 20 - 30 mmol/L [facility] BE, venous 3 mmol/L [facility] Comment: Interpretive Data No Reference Range Established Current Interpretive Data was last revised on 2017. Blood 09/24/2024 12:3 5 PM SOIL FERTILITY EXTENSION SPECIALIST 09/24/2024 12:48 PM SOIL FERTILITY EXTENSION SPECIALIST Britany Knight MD LAB BLOOD ORDERABLES Final Res ult Performing Organization Address [facility] Co de Phone Number [facility] [place] [place] [address] * (ABNORMAL) Ammonia (09/24/2024 12:35 PM SOIL FERTILITY EXTENSION SPECIALIST) Ammonia 95(H) <=50 mcmol/L Blood 09/24/2024 12:3 5 PM SOIL FERTILITY EXTENSION SPECIALIST 09/24/2024 12:52 PM SOIL FERTILITY EXTENSION SPECIALIST Britany Knight MD LAB BLOOD ORDERABLES Final Res ult Performing Organization Address City/[facility] Co de Phone Number [facility] [place] [place] [address] * (ABNORMAL) Hepatic function panel (09/24/2024 12:35 PM SOIL FERTILITY EXTENSION SPECIALIST) Bilirubin, total 3.0(H) 0.1 - 1.2 mg/dL Bilirubin, direct 1.0(H) 0.1 - 0.3 mg/dL [facility] Protein, pl 7.1 6.5 - 8.5 g/dL [facility] Albumin 3.2(L) 3.5 - 5.0 g/dL [facility] Alk phos 118 40 - 130 Units/L [facility] ALT 18 7 - 45 Units/L [facility] AST 53(H) 10 - 45 Units/L [facility] Blood 09/24/2024 12:3 5 PM SOIL FERTILITY EXTENSION SPECIALIST 09/24/2024 12:59 PM SOIL FERTILITY EXTENSION SPECIALIST us Britany Knight MD LAB BLOOD ORDERABLES Final Res ult [facility] [place] [address] * (ABNORMAL) Basic metabolic panel (09/24/2024 12:35 PM SOIL FERTILITY EXTENSION SPECIALIST) Sodium 133(L) 135 - 145 mmol/L Potassium, pl 3.5 3.3 - 4.9 mmol/L [facility] Chloride 90(L) 97 - 110 mmol/L [facility] CO2 26 22 - 32 mmol/L [facility] Anion gap 17(H) 2 - 15 mmol/L [facility] BUN 64(H) 6 - 25 mg/dL [facility] Creatinine 2.92(H) 0.60 - 1.10 mg/dL [facility] Glucose 349(H) 70 - 199 mg/dL [facility] Comment: Interpretive Data Fasting glucose >/= [...] 2022. Calcium 11.1(H) 8.5 - 10.3 mg/dL [facility] Blood 09/24/2024 12:3 5 PM SOIL FERTILITY EXTENSION SPECIALIST 09/24/2024 12:59 PM SOIL FERTILITY EXTENSION SPECIALIST us Britany Knight MD LAB BLOOD ORDERABLES Final Res ult [facility] [place] [address] * Neuro CT Outside Consult (09/24/2024 12:33 PM SOIL FERTILITY EXTENSION SPECIALIST) Anatomical Region Laterality Modality N/A Computed Tomogra phy 09/24/2024 12:4 7 PM SOIL FERTILITY EXTENSION SPECIALIST Impressions 09/24/2024 12:47 PM SOIL FERTILITY EXTENSION SPECIALIST No acute intracranial abnormality. The findings and impression are based on the available images, which may not be account services representative of the entire organ or disease entity. Also note that ultrasound image acquisition is leak operator paraffin plant dependent, and that the study was performed outside our facility with no control over image acquisition. In addition, the provided images may or may not represent the zuni source data set and thus may contain [...] Anastacio Rivera MD Narrative 09/24/2024 12:47 PM SOIL FERTILITY EXTENSION SPECIALIST EXAMINATION: RADIOLOGY CONSULTATION ON OUTSIDE IMAGING STUDY STUDY INITIALLY PERFORMED: 09/24/2024 at [facility]. TYPE OF STUDY: Multiple CT images without [...] IMAGING STUDY STUDY INITIALLY PERFORMED: 09/24/2024 at [facility]. TYPE OF STUDY: Multiple CT images without [...] the available images, which may not be account services representative of the entire organ or disease entity. Also note that ultrasound image acquisition is leak operator paraffin plant dependent, and that the study was performed outside our facility with no control over image acquisition. In addition, the provided images may or may not represent the zuni source data set and thus may contain [...] * XR Outside Reference (09/24/2024 12:28 PM SOIL FERTILITY EXTENSION SPECIALIST) Impressions RAD_PACS[facility] - 09/24/2024 12:28 PM SOIL FERTILITY EXTENSION SPECIALIST These images are for Reference purposes only and have not been reviewed by [facility]. There will be no report generated by a [facility] Radiologist. Narrative [facility]_PACS[facility] - 09/24/2024 12:28 PM SOIL FERTILITY EXTENSION SPECIALIST EXAMINATION: Images For Reference Purposes Only Britany Knight MD IMG XR PROCEDURES Final Result Performing Organization Address City/[facility] Co de Phone Number [facility]_PACS[facility] * HLA Antibody Screen by PRA or SAB per Schedule (Class I and Class II) (09/21/2024 1:00 PM SOIL FERTILITY EXTENSION SPECIALIST) Blood 09/21/2024 1:00 PM SOIL FERTILITY EXTENSION SPECIALIST Narrative HISTOTR[facility] - SOIL FERTILITY EXTENSION SPECIALIST Sample received in lab. Single Antigen Antibody Screen ordered. Timothy Pardo MD LAB BLOOD ORDERABL ES Final Result Performing Organization Address [facility] de Phone Number HISTOT[facility] * HLA Antibody Screen - SAB (Class I and Class II) (09/21/2024 1:00 PM SOIL FERTILITY EXTENSION SPECIALIST) Class I Treatment EDTA [facility] Class I [...] DR10, DR12, DR52 [facility] 09/21/2024 1:00 PM SOIL FERTILITY EXTENSION SPECIALIST 09/29/2024 9:55 AM SOIL FERTILITY EXTENSION SPECIALIST Narrative HISTOTRAC - 09/29/2024 9:55 AM SOIL FERTILITY EXTENSION SPECIALIST Single-antigen HLA antibody screen is performed on serum samples using a method developed and validated by the [facility] HLA laboratory based on an FDA-approved IVD kit ([employer]kh[employer]creen Single-Antigen, [employer], [place], [place]). All patient serum samples are pretreated with EDTA before the screen to prevent complement interference. Additional serum treatments, such as adsorption and DTT treatment, may be performed as indicated. Interpretive comments: Low risk: MFI [id number]. Moderate risk: MFI 3487-6148. Increased risk: MFI >/= 5000. The presence [...] antigens to avoid. Testing performed at the [facility], [address] [place] [address], 5th floor, [place], [address]. CLIA # [id number]. Rani Smith, Ph.D., Payroll Accountant, HLA Laboratory Aurelio Palafox M.D., Ph.D., Agriculture Internship, HLA Laboratory Norma Talamantes, Ph.D., ROSAURA Agriculture Internship, [facility] Current methodology and interpretive comments last revised on 09/06/2022. us Timothy Pardo MD LAB BLOOD ORDERABL ES Final Result HISTOTR[facility] * SCAN - LABS (09/07/2024) us Provider Scanning Final Result * (ABNORMAL) eGFR (08/27/2024 1:35 PM SOIL FERTILITY EXTENSION SPECIALIST) eGFR 31(L) >=60 mL/min/1. 73 m2 Comment: [...] last reviewed 2021. Blood 08/27/2024 1:35 PM SOIL FERTILITY EXTENSION SPECIALIST 08/27/2024 1:59 PM SOIL FERTILITY EXTENSION SPECIALIST us Taiwo Vázquez MD LAB BLOOD ORDERABLES Fin al Result CHARISSA DUNNE [facility] [place] [address] * (ABNORMAL) Protime-INR (08/27/2024 1:35 PM SOIL FERTILITY EXTENSION SPECIALIST) PT 14.1(H) 9.7 - 13.0 sec INR 1.30(H) 0.90 - 1.20 [facility] Comment: Interpretive data Oral anticoagulant therapeutic ranges: Venous thromboembolism prophylaxis or treatment: 2.0-3.0 CARDIOLOGY Standard range: 2.0-3.0 High-intensity range: 2.5-3.5 Refer to indication-specific guidelines for appropriate target ranges for prosthetic heart valve replacement. Current interpretive data was last revised on 2019. Blood 08/27/2024 1:35 PM SOIL FERTILITY EXTENSION SPECIALIST 08/27/2024 1:48 PM SOIL FERTILITY EXTENSION SPECIALIST us Taiwo Vázquez MD LAB BLOOD ORDERABLES Fin al Result [facility] [place] [address] * (ABNORMAL) Comprehensive metabolic panel (08/27/2024 1:35 PM SOIL FERTILITY EXTENSION SPECIALIST) Sodium 136 135 - 145 mmol/L Potassium, pl 3.6 3.3 - 4.9 mmol/L [facility] Chloride 101 97 - 110 mmol/L [facility] CO2 28 22 - 32 mmol/L [facility] Anion gap 7 2 - 15 mmol/L [facility] BUN 29(H) 6 - 25 mg/dL [facility] Creatinine 1.81(H) 0.60 - 1.10 mg/dL [facility] Glucose 293(H) 70 - 199 mg/dL [facility] Comment: Interpretive Data Fasting glucose >/= [...] 2022. Calcium 8.9 8.5 - 10.3 mg/dL [facility] Bilirubin, total 2.4(H) 0.1 - 1.2 mg/dL [facility] Protein, pl 6.1(L) 6.5 - 8.5 g/dL [facility] Albumin 3.0(L) 3.5 - 5.0 g/dL [facility] Alk phos 100 40 - 130 Units/L [facility] ALT 21 7 - 45 Units/L [facility] AST 31 10 - 45 Units/L [facility] Blood 08/27/2024 1:35 PM SOIL FERTILITY EXTENSION SPECIALIST 08/27/2024 1:48 PM SOIL FERTILITY EXTENSION SPECIALIST Taiwo Vázquez MD LAB BLOOD ORDERABLES Fin al Result [facility] [place] [address] * HLA Antibody Screen by PRA or SAB per Schedule (Class I and Class II) (08/24/2024 10:00 AM SOIL FERTILITY EXTENSION SPECIALIST) Blood 08/24/2024 10:0 0 AM SOIL FERTILITY EXTENSION SPECIALIST Narrative HISTOTRAC - SOIL FERTILITY EXTENSION SPECIALIST Sample received in lab and stored. No testing performed at this time. Timothy Pardo MD LAB BLOOD ORDERABL ES Final Result HISTOT[facility] * SCAN - LABS (08/24/2024) Provider Scanning Final Result * Pap and High Risk HPV and Genotyping (Cytology Component) (04/28/2024 10:41 AM CDT) Thin prep (Pap test) 04/28/2024 10:41 AM CDT 04/28/2024 1:[address]Y [facility] - 05/04/2024 4:21 PM CDT EPIC results best viewed via link to PDF [facility] Chelsea Cronin Laboratory [place] [address] Note to Patients: This report may contain [...] details. CYTOPATHOLOGY REPORT FINAL Patient Name: NAEL CARDOZA Gender: Michelle : 1960 (Age: 63) Address: [address] [place], [place] [address] Hospital #: [id number] Service: Medical Location: [place] [address] Patient Type: [facility] Inpatient Taken: 04/28/2024 Received: 04/28/2024 Accessioned: [...] this test have been verified by the [facility] Molecular Infectious Disease laboratory. Correlate with reported cytology results, as applicable. Interpretive data last revised 23 jhosie/05/04/2024 16:21 JEANNIE Worthington([facility]) Report Electronically Reviewed and Signed Out By JEANNIE Worthington([facility]) 05/04/2024 16:21:37 Cervicovaginal Cytology (Pap Test) Disclaimer: The Pap test is a screening test used to detect cervical cancer and its precursors; it is not a diagnostic procedure. False negative and false positive results do occur. Pap test results should be interpreted in the context of pertinent clinical information and biopsy results as indicated. [facility] Clinical Laboratory Improvement Amendments (CLIA) mandate that cytologic and histologic results be correlated for laboratory clinical quality assurance associate & improvement standards. FOR ALL HIGH-GRADE CASES [...] determined by the Surgical Pathology Department at [facility] as part of an ongoing water quality tester program and in compliance with federally mandated [...] determined by the Surgical Pathology Department of [facility]. It has not been cleared or approved by the U. S. Food and Drug Administration. Eladio Carey MD LAB CYTOLOGY ORDERABLES Final Result PATHOLOGY [facility] 3rd Floor [place], [place] [phone] * Screening Mammogram Bilateral W Pal (04/27/2024 1:55 PM CDT) Anatomical Region Laterality Modality Breast Bilateral Mammography Narrative 04/27/2024 1:52 PM CDT Mammogram Technique: Bilateral Digital Breast Tomosynthesis, Bilateral C-view 2D Screening mammogram. Views obtained: bilateral craniocaudal and bilateral mediolateral oblique. Computer Aided Detection was performed. Mammogram Findings: The present examination has been compared to prior imaging studies performed at [facility] on 05/15/2021 and 12/06/2021. There are [...] compared to prior imaging studies performed at [facility] on 05/15/2021 and 12/06/2021. There are [...] revised on 2018. Triglycerides 43 <=149 mg/dL [facility] Comment: Interpretive Data Ages < or [...] revised on 2018. HDL 64 >=40 mg/dL [facility] Comment: Interpretive Data Ages < or [...] on 2018. LDL, calculated 47 <=129 mg/dL [facility] Comment: Interpretive Data Ages < or [...] revised on 2024. Non-HDL Cholesterol 58 mg/dL [facility] Comment: Interpretive Data Ages < or [...] last revised on 2018. Chol/HDL ratio 2 [facility] Blood 04/22/2024 12:5 8 AM CDT 04/22/2024 3:00 AM CDT us John Paul Reddy MD LAB BLOOD ORDERABLES Final Resul t Performing Organization Address City/[facility] Co de Phone Number [facility] [place] [address] * Hepatitis C antibody Blood (06/16/2023 6:09 AM SOIL FERTILITY EXTENSION SPECIALIST) Hep C Ab Nonreactive Nonreactive [facility] Comment:Antibodies to HCV no t detected. Does NOT exclude the possibility of recent exposure to HCV. Current interpretive data was last revised on 22 Blood 06/16/2023 6:09 AM SOIL FERTILITY EXTENSION SPECIALIST 06/16/2023 6:35 AM SOIL FERTILITY EXTENSION SPECIALIST us Alejandro Frazier MD LAB MICROBIOLOGY - GENERAL ORDERABLES Final Result [facility] [place] [address] * COLONOSCOPY (05/30/2022 9:28 AM CDT) Anatomical Region Laterality Modality Other Narrative Procedure Note Pat Robins MD - 05/30/2022 9:28 AM CDT GI ENDOSCOPY [facility] Patient Name: Nael Cardoza Procedure Date: 05/30/2022 9:28 AM Date of : 1960 Admit Type: Outpatient Age: 61 Gender: Female Attending MD: Pat Robins M.D. Room: [facility] ENDOSCOPY ROOM 3 Note Status: Finalized [...] The scope was passed under direct vision.The PC [id number] endoscope was introducedthrough the anus and [...] On: 05/30/2022 9:28 AM Recognized by the [place] [employer] for promoting quality in endoscopy Pat Robins MD ENDOSCOPY PROCEDURES Ju l Result * Albumin Creatinine Ratio, Urine (03/01/2021 2:45 PM CDT) Albumin Ur <12.0 mg/L [facility] Comment: Interpretive Data No reference range established. Current interpretive data was last revised 2018. Creatinine Ur 59.5 mg/dL [facility] Comment: Interpretive Data No reference range established. Current interpretive data was last revised 2018. Albumin Creatinine Ratio, Ur <20 1 - 29 mg/g [facility] Urine 03/01/2021 2:45 PM CDT 03/01/2021 3:41 PM CDT Oly Baker MD LAB URINE ORDER RAVEN Final Result [facility] [place] [address] from Last 3 Months or Most Recently Relevant to Health Maintenance Insurance [facility] BLUE ACCESS [place] PENDING SALE TO [facility] ACCESS BLUE ACCESS [facility] Member Subscriber Plan / Payer (Ef fective 2021-Present) Name:Nael Cardoza Relation to Subscriber:Self Name:Nael Cardoza Payer ID:[id number] (NA) Type:NightOwl Address: [id number] [facility] MEDICARE ADVANTAGE TRANSPLANT [employer] MEDICARE RISK TRANSPLANT [employer] MEDICARE RISK TRANSPLANT [employer] MEDICARE RISK COMPLEX MEDICAL CONDITIONS [place] [id number] Advance Directives For more information, please contact: [phone] * Full Code (Latest Code Status on [...] 7:39 PM 01/08/2023 4:21 PM Care Teams Import/Export Specialist Relationship Specialty Start Date End Date Maddy Romano MD [address] [place], [place] [id number] PCP - General 09/28/16 Manas Ibarra MD [address] [place] [address] [id number] Referring Physician Thoracic Surgery 11/05/18 Zion Barton MD [address] [place], [place] [id number] Radiation Oncologist Radiation Oncology 05/05/19 Molina Charles MD [address] [place] [address] [address] [place], [place] [id number] Referring Physician Transplant Hepatology 12/15/20 Karuna Maria, OT Occupational Therapist Occupational Therapy 09/20/22 Renu Treviño NP [address] [facility] [address] [place] [address] Nurse Practitioner Radiation Oncology 11/08/22 Eladio Mcrae MD [address] [place] [address] Referring Physician Obstetrics and Gynecology 11/15/22 Tamiko Schroeder, RN [address] [place] [address] Chute Man 04/27/24 Chelsea Barker, rubber and plastics workerChute Man 11/13/24
--- OUTSIDE RECORDS SUMMARY | 2024-11-19 14:14 | XMS_ITS | Encounter Summary ---
Author Organization [employer] Address [address] [place] [address] Care Team Providers Care Ergonomics Technician Name Role Phone Unavailable Primary Care Provider Unavailabl e Reason for Visit * Reason Onset Date Comments TR on CKD 04/02/2024 Spoke w/Dr. Mueller Stroke/CVA 04/02/2024 Spoke w/Gladys @ Dr. Anthony's exchange Encounter Details Date Type Department Care Team (Late st Contact Info) Description 04/02/2024 Telephone [facility] Emergency [address] [place] [address] [place] [id number] [place] [id number] TR on CKD (Spoke w/Dr. Mueller); Stroke/CVA [...]
--- OUTSIDE RECORDS SUMMARY | 2024-11-19 14:14 | XMS_ITS ---
Author Organization [facility] Address [address] [place] [address] Care Team Providers Care Circuit Court Clerk Name Role Phone Maddy Romano MD Primary Care Provider [phone] Manas Ibarra MD Unavailable Zion Barton MD Unavailable Molina Charles MD Unavailable [phone] Karuna Maria OT Unavailable Unavaila Renu Paul NP Unavailable [phone] Eladio Mcrae MD Unavailable [phone] Tamiko Schroeder RN Unavailable [phone] Chelsea Barker RN Unavailable Unavail able Transplant Episode Kidney Candidate [facility] ([place], [place]) - [facility] Center waitlisted on 05/07/2024 Marked as Inactive on 05/26/2024 Reason: Candidate requires multi-organ [place] only, isolated offers not accepted Kidney CoordinatorTamiko Schroeder RN Email: N/A Scores Score Value Updated Exceptions/Reas ons CPRA Not available EPTS (Calc) 55 11/19/2024 [place] Organ Diagnosis Organ Primary Contributory Kidney Other, Specify - ESRD TR due to dehydration Care Team Name Role Phone Fax Email Tamiko Schroeder RN Kidney Coordinator [phone] N/A Events Pre-Transplant Referred: 04/21/2024 Evaluation began: 04/22/2024 Committee: 04/27/2024 Center waitlisted: 05/07/2024
--- OUTSIDE RECORDS SUMMARY | 2024-11-19 14:14 | XMS_ITS | Encounter Summary ---
Author Organization [facility] Address [address] [place] [address] Care Team Providers Care Coding Assistant Name Role Phone Maddy Romano MD Primary Care Provider [phone] Manas Ibarra MD Unavailable Zion Barton MD Unavailable Molina Charles MD Unavailable [phone] Inés Lemus RN Unavailable [phone] Karuna Maria OT Unavailable Unavaila Renu Paul NP Unavailable [phone] Eladio Mcrae MD Unavailable [phone] Tamiko Schroeder RN Unavailable [phone] Marina Le RN Unavailable [phone] Chelsea Barker RN Unavailable Unavail able Encounter Details Date Type Department Care Team (Late st Contact Info) Description 10/05/2024 Results Follow-Up [facility] Transplant Liver [address] [facility] [address] [id number] [place] [address] Inés Lemus, TYRA [address] [facility] [address] [place] [address] Social History Tobacco Use Types Packs/Day Years Used Date Smoking Tobacco: Former Cigarettes 0.5 51 1 970 - 2020 Smokeless Tobacco: Never [facility] Utilities Answer Date Recorded In the [...] often do you attend chur ch or jewish services? Never 10/05/2024 Do you belong to any clubs o r organizations such as mormonism groups, unions, fraternal or athletic groups, or [...] place to sleep or slept in a penitentiary (including now)? No 12/31/2022 Housing Stability Vital Sign Answer Terrance e Recorded In the last 12 months, was t here a time when you were not able to pay the mortgage or rent on time? No 10/05/2024 In the past 12 months, how m any times have you moved where you were living? 0 10/05/2024 At any time in the past 12 m [facility], were you homeless or living in a penitentiary (including now)? No 10/05/2024 Personal Safety Answer Date Recorded Have you ever been in or are you currently in a harmful physical or emotional relationship or is someone making you feel afraid or unsafe? 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 of this encounter Functional Status documented as of this encounter Plan of Treatment Upcoming Encounters Date Type Department Care Team (Late st Contact Info) Description 12/01/2024 9:45 AM CDT Hospital Encounter [facility] [address] [facility] [address] [place] [address] Lea Gallardo MD [address] [facility] [address] [place] [address] 12/01/2024 9:45 AM CDT - 12/01/2024 10:30 AM CDT Surgery [facility] [address] [facility] [address] [place] [address] Lea Gallardo MD 1 [facility] [address] [place] [address] COLONOSCOPY Scheduled Procedures Name Priority Associated Diagnoses Date/Ti me COLONOSCOPY Screening for colorectal cancer 12/01/2024 9:45 AM CDT COLONOSCOPY Routine adult health maintenance LYONS (nonalcoholic steatohepatitis) documented as of this encounter Visit Diagnoses Not on filedocumented in this encounter Care Teams Coding Assistant Relationship Specialty Start Date End Date Maddy Romano MD [address] [place], [place] 2[address] PCP - General 09/28/16 Manas Ibarra MD [address] [place] [address] Referring Physician Thoracic Surgery 11/05/18 Zion Barton MD [address] [place], [place] [id number] Radiation Oncologist Radiation Oncology 05/05/19 Molina Charles MD 1 [facility] [address] [place] [address] Referring Physician Transplant Hepatology 12/15/20 Inés Lemus, RN [address] [facility] [address] [place] [address] Buildings And Grounds Superintendent 10/31/21 Karuna Cardona, OT Occupational Therapist Occupational Therapy 09/20/22 Renu Treviño NP [address] [facility] [address] [place] [address] Nurse Practitioner Radiation Oncology 11/08/22 Eladio Mcrae MD [address] [place], [place] [address] Referring Physician Obstetrics and Gynecology 11/15/22 Tamiko Schroeder, RN [address] [place] [address] Buildings And Grounds Superintendent 04/27/24 Marina Le, RN [address] [facility] [address] [place] [address] SHOP Outpatient Aeronautical Project Engineer 10/05/24 10/26/24 Chelsea Barker, combined rail operatorBuildings And Grounds Superintendent 11/13/24 documented as of this encounter
--- OUTSIDE RECORDS SUMMARY | 2024-11-19 14:14 | XMS_ITS | Encounter Summary ---
Author Organization [facility] Address [address] [place] [address] Phone Care Team Providers Care Fitness Club Manager Name Role Phone Maddy Romano MD Primary Care Provider Astrid Haq NP Unavailable Manas Ibarra MD Unavailable Zion Barton MD Unavailable Molina Charles MD Unavailable [phone] Inés Lemus RN Unavailable [phone] Karuna Maria OT Unavailable Unavaila Renu Paul NP Unavailable Eladio Mcrae MD Unavailable [phone] Tamiko Schroeder RN Unavailable [phone] Briana Poe RN Unavailable Marina Le RN Unavailable [phone] Chelsea Barker RN Unavailable Unavail able Encounter [...] on file Legal Sex Female 8:22 AM FINISHED GOODS INSPECTOR Gender Identity Female 11/15/2021 2:30 AM CDT Sexual Orientation Straight 02/02/2020 9: 00 AM CDT 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 of this encounter Plan of Treatment Upcoming Encounters Date Type Department Care Team (Late st Contact Info) Description 12/01/2024 9:45 AM CDT Hospital Encounter [facility] Disease [address] [address] Lea Gallardo MD [address] [place] [address] 12/01/2024 9:45 AM CDT - 12/01/2024 10:30 AM CDT Surgery [facility] Digestive Disease [place] [id number] [address] [address] Lea Gallardo MD [address] [place] [address] COLONOSCOPY Scheduled Procedures Name Priority Associated Diagnoses [...] 02/15/2021 6:07 PM CDT COVID: Suspected 01/05/2023 01/05/202301/0501/05/2023 11:12 PM CDT COVID: Suspected 04/21/2024 04/21/2024 [...] COVID: Suspected 09/24/2024 09/24/2024 09/24/2024 3:13 PM FINISHED GOODS INSPECTOR documented as of this encounter Care Teams Fitness Club Manager Relationship Specialty Start Date End Date Maddy Romano MD [address] [place] [address] PCP - General 09/28/16 Astrid Haq NP [address] [place] [address] [id number] Nurse Practitioner Radiation Oncology 11/05/18 11/07/22 Manas Ibarra MD [address] [place] [address] [id number] Referring Physician Thoracic Surgery 11/05/18 Zion Barton MD [address] [place] [address] Radiation Oncologist Radiation Oncology 05/05/19 Molina Charles MD 1 [facility] [address] [place] [address] Referring Physician Transplant Hepatology 12/15/20 Inés Lemus, RN [address] [place] [address] Road Train Driver 10/31/21 5 Karuna Maria OT Occupational Therapist Occupational Therapy 09/20/22 Renu Treviño, NAGI [address] [place] [address] Nurse Practitioner Radiation Oncology 11/08/22 Eladio Mcrae MD [address] [place] [address] Referring Physician Obstetrics and Gynecology 11/15/22 Tamiko Schroeder RN [address] [place] [address] Road Train Driver 04/27/24 Briana Poe, TYRA [address] [place] [address] SHOP Outpatient Inspector [employer] 04/30/24 05/28/24 Marina Le, RN [address] [place] [address] SHOP Outpatient Inspector Watch [employer] 10/05/24 10/26/24 Chelsea Barker, de icerRoad Train Driver 11/13/24 documented as of this encounter
--- OUTSIDE RECORDS SUMMARY | 2024-11-19 14:14 | XMS_ITS | Encounter Summary ---
Author Organization [facility] Address [address] [place] [address] Phone Care Team Providers Care Extension Educator Name Role Phone Maddy Romano MD Primary Care Provider Astrid Haq NP Unavailable [phone] Manas Ibarra MD Unavailable Zion Barton MD Unavailable [phone] Molina Charles MD Unavailable [phone] Inés Lemus RN Unavailable [phone] Karuna Maria OT Unavailable Unavaila Renu Paul NP Unavailable [phone] Eladio Mcrae MD Unavailable [phone] Tamiko Schroeder RN Unavailable [phone] Briana Poe RN Unavailable Marina Le RN Unavailable Chelsea Barker RN [...] on file Legal Sex Female 8:22 AM SALT REFINER Gender Identity Female 11/15/2021 2:30 AM CDT Sexual Orientation Straight 02/02/2020 9: 00 AM CDT 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..] COVID: Suspected 09/24/2024 09/24/2024 09/24/2024 3:13 PM SALT REFINER documented as of this encounter Care Teams Extension Educator Relationship Specialty Start Date End Date Maddy Romano MD [address] [place], [place] [address] PCP - General 09/28/16 Astrid Haq NP [address] [place], [place] 7[address] Nurse Practitioner Radiation Oncology 11/05/18 11/07/22 Manas Ibarra MD [address] [place], [place] [address] Referring Physician Thoracic Surgery 11/05/18 Zion Barton MD [address] [place] [address] Radiation Oncologist Radiation Oncology 05/05/19 Molina Charles MD [address] [facility] [address] [place] [address] Referring Physician Transplant Hepatology 12/15/20 Inés Lemus RN [address] [facility] [address] [place] [address] Sealant Mixer 10/31/21 5 Karuna Maria, OT Occupational Therapist Occupational Therapy 09/20/22 Renu Treviño NP [address] [facility] [address] [place] [address] Nurse Practitioner Radiation Oncology 11/08/22 Eladio Mcrae MD [address] [place] [address] Referring Physician Obstetrics and Gynecology 11/15/22 Tamiko Schroeder RN [address] [place] [address] Sealant Mixer 04/27/24 Briana Poe RN [address] [facility] [address] [place] [address] SHOP Outpatient Wildlife Veterinarian 04/30/24 05/28/24 Marina Le RN [address] [facility] [address] [place] [address] SHOP Outpatient Wildlife Veterinarian 10/05/24 10/26/24 Chelsea Barker, cork wirerSealant Mixer 11/13/24 documented as of this encounter
--- OUTSIDE RECORDS SUMMARY | 2024-11-19 14:14 | XMS_ITS ---
Author Organization [facility] Address [address] [place] [address] Care Team Providers Care Vegetable Worker Name Role Phone Maddy Romano MD Primary Care Provider [phone] Manas Ibarra MD Unavailable Zion Barton MD Unavailable Molina Charles MD Unavailable [phone] Karuna Maria OT Unavailable Unavaila Renu Paul NP Unavailable [phone] Eladio Mcrae MD Unavailable [phone] Tamiko Schroeder RN Unavailable [phone] Chelsea Barker RN Unavailable Unavail able Transplant Episode Liver Candidate [facility] ([place], [place]) - [facility] Center waitlisted on 08/17/2022 Marked as Active on 09/28/2024 Reason: [facility] Liver CoordinatorChelsea Barker RN Phone: N/A Fax: N/A Email: N/A Scores Score Value Updated Expires Exceptions/Jackson sons CPRA Not available UNOS MELD 17 10/13/2024 01/11/2025 MELD (Calc) 17 10/13/2024 [place] Organ Diagnosis Organ Primary Contributory Liver Cirrhosis: Metabolic Dysfunction -Associated Steatohepatitis (MAS) Care Team Name Role Phone Fax Email Chelsea Barker, TYRA Liver Coordinator N/A N/A N/A Charito Lambert, DEVONTE Dietitian N/A N/A N/A Anna Ngo, MEMBERSHIP ADMINISTRATOR Paralegal Secretary N/A N/A N/A Molina Charles MD Referring Physician [phone] N/A Cynthia Robert RN Secondary Coordinator [phone] N/A N/A [place] Bear Gasoline Truck Operator [phone] N/A N/A Faith Lopez Primary Peer Tutor N/A N/A N/A Events Pre-Transplant Referred: 10/26/2021 Evaluation began: 11/02/2021 Committee: 08/07/2022 Center waitlisted: 08/17/2022
--- OUTSIDE RECORDS SUMMARY | 2024-11-19 14:14 | XMS_ITS | Clinical Summary ---
Author Organization [facility] Address [address] [place] [address] Phone Care Team Providers Care Diesel Roller Operator Name Role Phone Unavailable Primary Care Provider Unavailabl e Allergies No known active allergies Medications acetaminophen (TYLENOL) 325 mg tablet Take 325 mg by mouth every 8 hours. Active glucagon (BAQSIMI) 3 mg/spray Cameron, Non-Aerosol 1 Cameron. GIVE 1 spray in one NOSTRIL ONE [...] Encounters Date Type Department Care Team Description 11/17/2024 External Device Data STL ABSTRACTION Provider, Abstract 10/28/2024 External Device Data STL ABSTRACTION Provider, Abstract 10/20/2024 External Device Data STL ABSTRACTION Provider, Abstract 10/20/2024 External Device Data STL ABSTRACTION Provider, Abstract 10/17/2024 External Device Data STL ABSTRACTION Provider, Abstract 10/16/2024 External Device Data STL ABSTRACTION Provider, Abstract 10/13/2024 External Device Data STL ABSTRACTION Provider, Abstract 09/15/2024 External Device Data STL ABSTRACTION Provider, [...] EXAM 1978 DIABETES MICROALBUMIN ANNUAL SCREEN 1978 HPV/Cotest (21-29) 1981 CERVICAL CANCER SCREENING 1990 HPV/Cotest (30-65) 1990 PAP SMEAR 1990 FIT-DNA Q 3 years 2005 Flex Sig/CT Colonography Q 5 years 2005 RSV VACCINE (60+ or ) (1 - Risk 60-74 years 1-dose series) 2020 BREAST CANCER SCREENING 12/06/2022 12/06/2021, 05/15 INFLUENZA VACCINE (#1) 2024 , 04/29/2020, 05/01/2019, Additional history exists DTAP/TDAP/TD VACCINES (2 - T d or Tdap) 03/24/2024 03/24/2014 COVID-19 Vaccine (2023-2 5 season) 2024 10/17/2020 DIABETES HBA1C Q [...] STOOL Negative Negative 04/03/2024 3:27 AM CDT [facility] Stool STOOL SPECIMEN / Unknown Collection / Unknown 04/03/2024 1:23 AM CDT 04/03/2024 1:24 AM CDT us Marcos Newton MD BODY FLUIDS AND STOOLS Final R esult [facility] CLIA# [id number] [place] [address] * LIPID PANEL (04/03/2024 12:30 AM CDT) CHOLESTEROL 114 <200 mg/dL 04/03/2024 1:34 AM CDT [facility] TRIGLYCERIDE 62 <150 mg/dL 04/03/2024 1:34 AM CDT [facility] HDL 50 40 - 59 mg/dL 04/03/2024 1:34 AM CDT [facility] LDL CALCULATED 52 <100 mg/dL 04/03/2024 1:34 AM CDT [facility] NON-HDL CHOLESTEROL 64 <130 mg/dL 04/03/2024 1:34 AM CDT [facility] Blood Venipuncture / Unknown 04/03/2024 12:30 AM CDT 04/03/2024 1:04 AM CDT [facility] - 04/03/2024 1:34 AM CDT [...] Reference Ranges for Lipid Panels (NCEP/AMA) . us Marcos Newton MD CHEMISTRY ORDERABLES Final Res ult [facility] CLIA# [id number] [place] [address] * (ABNORMAL) HEMOGLOBIN A1C (04/02/2024 6:29 PM CDT) HEMOGLOBIN A1C 6.5(H) <=5.6 % 04/02/2024 7:01 PM CDT [facility] EST. AVG GLUCOSE, A1C 140 mg/dL 04/02/2024 7:01 PM CDT [facility] Blood Venipuncture / Unknown 04/02/2024 6:29 PM CDT 04/02/2024 6:34 PM CDT Narrative [facility] - 04/02/2024 7:01 PM CDT HGB A1C INTERPRETATION NORMAL: <5.7% PRE-DIABETES: 5.7 - 6.4% DIABETES: 6.5% OR GREATER us Marcos Newton MD CHEMISTRY ORDERABLES Final Res ult [facility] CLIA# [id number] [address] [place] [address] from Last 3 Months or Most Recently Relevant to Health Maintenance Insurance [facility] [id number] RX [employer] RX Member Subscriber Plan / Payer (Ef fective 2024-Present) Name:Aleah Levine Relation to Subscriber:Self Name:Aleah Levine Payer ID:Not on file Group ID:[id number] Type:RX Medicare Part D Address: [address] Advance Directives For more information, please contact: [phone] * Full Code (Latest Code Status on File) Date Activated Date Inactivated Comments 04/02/2024 6:16 PM 04/06/2024 2:11 PM
--- OUTSIDE RECORDS SUMMARY | 2024-11-19 14:14 | XMS_ITS | Encounter Summary ---
Author Organization [facility] Address [address] [place] [address] Phone Care Team Providers Care Roller Skate Assembler Name Role Phone Maddy Romano MD Primary Care Provider Astrid Haq NP Unavailable Manas Ibarra MD Unavailable Zion Barton MD Unavailable Molina Charles MD Unavailable [phone] Inés Lemus RN Unavailable [phone] Karuna Maria OT Unavailable Unavaila Renu Paul NP Unavailable Eladio Mcrae MD Unavailable [phone] Tamiko Schroeder RN Unavailable [phone] Briana Poe RN Unavailable [phone] Marina Le RN Unavailable Chelsea Barker RN [...] on file Legal Sex Female 8:22 AM SOFTWARE INTEGRATOR Gender Identity Female 11/15/2021 2:30 AM CDT Sexual Orientation Straight 02/02/2020 9: 00 AM CDT 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 Disease [address] [address] Lea Gallardo MD [address] [place] [address] 12/01/2024 9:45 AM CDT - 12/01/2024 10:[address] [facility] [address] [place] [address] Lea Gallardo MD [address] [place] [address] COLONOSCOPY Scheduled Procedures Name Priority Associated Diagnoses [...] COVID: Suspected 09/24/2024 09/24/2024 09/24/2024 3:13 PM SOFTWARE INTEGRATOR documented as of this encounter Care Teams Roller Skate Assembler Relationship Specialty Start Date End Date Maddy Romano MD [address] [place], [place] [address] PCP - General 09/28/16 Astrid Haq NP [address] [place], [place] 3[address] Nurse Practitioner Radiation Oncology 11/05/18 11/07/22 Manas Ibarra MD [address] [place], [place] [address] Referring Physician Thoracic Surgery 11/05/18 Zion Barton MD [address] [place] [address] Radiation Oncologist Radiation Oncology 05/05/19 Molina Charles MD 1 [facility] [address] [place] [address] Referring Physician Transplant Hepatology 12/15/20 Inés Lemus RN [address] [facility] [address] [place] [address] Fuel Cell Battery Technician 10/31/21 5 Karuna Maria, OT Occupational Therapist Occupational Therapy 09/20/22 Renu Treviño NP [address] [facility] [address] [place] [address] Nurse Practitioner Radiation Oncology 11/08/22 Eldaio Mcrae MD [address] [place] [address] Referring Physician Obstetrics and Gynecology 11/15/22 Tamiko Schroeder RN [address] [place] [address] Fuel Cell Battery Technician 04/27/24 Briana Poe RN [address] [facility] [address] [place] [address] SHOP Outpatient Track Laying Supervisor 04/30/24 05/28/24 Marina Le RN [address] [facility] [address] [place] [address] SHOP Outpatient Track Laying Supervisor 10/05/24 10/26/24 Chelsea Barker, assistant import managerFuel Cell Battery Technician 11/13/24 documented as of this encounter
--- OUTSIDE RECORDS SUMMARY | 2024-11-19 14:14 | XMS_ITS | Encounter Summary ---
Author Organization [facility] Address [address] [place] [address] Care Team Providers Care Business Office Technician Name Role Phone Maddy Romano MD Primary Care Provider Astrid Haq NP Unavailable Manas Ibarra MD Unavailable Zion Barton MD Unavailable Molina Charles MD Unavailable [phone] Inés Lemus RN Unavailable [phone] Karuna Maria OT Unavailable Unavaila Renu Paul NP Unavailable [phone] Eladio Mcrae MD Unavailable [phone] Tamiko Schroeder RN Unavailable [phone] Briana Poe RN Unavailable [phone] Marina Le RN Unavailable [phone] Chelsea Barker RN Unavailable Unavail able Reason for Visit * Reason Onset Date Comments Ready to scheduled 04/26/2022 Encounter Details Date Type Department Care Team (Late st Contact Info) Description 04/26/2022 Telephone [facility]ty Services [address] [place] [address] Miscellaneous, Not In File Ready to scheduled Social History Tobacco Use Types Packs/Day Years Used Date Smoking Tobacco: Former Cigarettes 0.5 51 1 0 - 2020 Smokeless Tobacco: Never AUDIT-C Answer [...] on file Legal Sex Female 8:22 AM MARINATOR Gender Identity Female 11/15/2021 2:30 AM CDT Sexual Orientation Straight 02/02/2020 9: 00 AM CDT 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 of this encounter Plan of Treatment Upcoming Encounters Date Type Department Care Team (Late st Contact Info) Description 12/01/2024 9:45 AM CDT Hospital Encounter [facility] Count includes the [facility] [address] [address] Lea Gallardo MD [address] [address] 12/01/2024 9:45 AM CDT - 12/01/2024 10:30 AM CDT Surgery [facility] [address] [place] [address] Lea Gallardo MD [address] [address] COLONOSCOPY Scheduled Procedures Name Priority Associated Diagnoses [...] COVID: Suspected 09/24/2024 09/24/2024 09/24/2024 3:13 PM MARINATOR documented as of this encounter Care Teams Business Office Technician Relationship Specialty Start Date End Date Maddy Romano MD [address] [place] [address] PCP - General 09/28/16 Astrid Haq NP [address] [place] [address] 05485[address] Nurse Practitioner Radiation Oncology 11/05/18 11/07/22 Manas Ibarra MD [address] [place] [address] 60633[address] Referring Physician Thoracic Surgery 11/05/18 Zion Barton MD [address] [place] [address] Radiation Oncologist Radiation Oncology 05/05/19 Molina Charles MD 1 [facility] [address] [place] [address] Referring Physician Transplant Hepatology 12/15/20 Inés Lemus, RN [address] [place] [address] Scale Clerk 10/31/21 5 Karuna Maria OT Occupational Therapist Occupational Therapy 09/20/22 Renu Treviño NP [address] [facility] [address] [place] [address] Nurse Practitioner Radiation Oncology 11/08/22 Eladio Mcrae MD [address] [place] [address] Referring Physician Obstetrics and Gynecology 11/15/22 Tamiko Schroeder RN [address] [place] [address] Scale Clerk 04/27/24 Briana Poe, TYRA [address] [place] [address] SHOP Outpatient Quarry Worker 04/30/24 05/28/24 Marina Le, RN [address] [place] [address] SHOP Outpatient Quarry Worker 10/05/24 10/26/24 Chelsea Barker, race engine builderScale Clerk 11/13/24 documented as of this encounter
--- OUTSIDE RECORDS SUMMARY | 2024-11-19 14:14 | XMS_ITS | Encounter Summary ---
Author Organization [facility] Healthcare Address [address] [place] [address] Care Team Providers Care Deburrer Strip Name Role Phone Maddy Romano MD Primary Care Provider Astrid Haq NP Unavailable Manas Ibarra MD Unavailable Zion Barton MD Unavailable Molina Charles MD Unavailable [phone] Inés Lemus RN Unavailable [phone] Karuna Maria OT Unavailable Unavaila Renu Paul NP Unavailable [phone] Eladio Mcrae MD Unavailable [phone] Tamiko Schroeder RN Unavailable [phone] Briana Poe RN Unavailable [phone] Marina Le RN Unavailable [phone] Chelsea Barker RN Unavailable Unavail able Reason for Visit * Reason Onset Date Comments Ready to schedule 04/25/2022 Encounter Details Date Type Department Care Team (Late st Contact Info) Description 04/25/2022 Telephone [facility] Specialty Services [address] [place] [address] Miscellaneous, Not In File Ready to schedule [...] on file Legal Sex Female 8:22 AM GAMEPLAY ENGINEER Gender Identity Female 11/15/2021 2:30 AM CDT Sexual Orientation Straight 02/02/2020 9: 00 AM CDT 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 of this encounter Plan of Treatment Upcoming Encounters Date Type Department Care Team (Late st Contact Info) Description 12/01/2024 9:45 AM CDT Hospital Encounter [facility] [address] [address] Lea Gallardo MD [address] [address] 12/01/2024 9:45 AM CDT - 12/01/2024 10:30 AM CDT Surgery [facility] [address] [place] [address] Lea Gallardo MD [address] [address] COLONOSCOPY Scheduled Procedures Name Priority Associated Diagnoses [...] COVID: Suspected 09/24/2024 09/24/2024 09/24/2024 3:13 PM GAMEPLAY ENGINEER documented as of this encounter Care Teams Deburrer Strip Relationship Specialty Start Date End Date Maddy Romano MD [address] [place] [address] PCP - General 09/28/16 Astrid Haq NP [address] [place] [address] 1254388 Nurse Practitioner Radiation Oncology 11/05/18 11/07/22 Manas Ibarra MD [address] [place] [address] 5614888 Referring Physician Thoracic Surgery 11/05/18 Zion Barton MD [address] [place] [address] Radiation Oncologist Radiation Oncology 05/05/19 Molina Charles MD 1 [facility] [address] [place] [address] Referring Physician Transplant Hepatology 12/15/20 Inés Lemus, RN [address] [place] [address] Pathology Specialist 10/31/21 5 Karuna Maria OT Occupational Therapist Occupational Therapy 09/20/22 Renu Treviño NP [address] [facility] [address] [place] [address] Nurse Practitioner Radiation Oncology 11/08/22 Eladio Mcrae MD [address] [place] [address] Referring Physician Obstetrics and Gynecology 11/15/22 Tamiko Schroeder RN [address] [place] [address] Pathology Specialist 04/27/24 Briana Poe, TYRA [address] [place] [address] SHOP Outpatient Personnel Technician 04/30/24 05/28/24 Marina Le, RN [address] [place] [address] SHOP Outpatient Personnel Technician 10/05/24 10/26/24 Chelsea Barker, weigher productionPathology Specialist 11/13/24 documented as of this encounter
--- OUTSIDE RECORDS SUMMARY | 2024-11-19 14:14 | XMS_ITS | Encounter Summary ---
Author Organization [facility] Address [address] [place] [address] Phone Care Team Providers Care Operator Supply Name Role Phone Maddy Romano MD Primary Care Provider Astrid Haq NP Unavailable Manas Ibarra MD Unavailable Zion Barton MD Unavailable Molina Charles MD Unavailable [phone] Inés Lemus RN Unavailable [phone] Karuna Maria OT Unavailable Unavaila Renu Paul NP Unavailable [phone] Eladio Mcrae MD Unavailable Tamiko Schroeder RN Unavailable [phone] Briana Poe RN Unavailable [phone] Marina Le RN Unavailable [phone] Chelsea Barker RN Unavailable Unavail able Encounter [...] on file Legal Sex Female 8:22 AM MOUNTER CLARINETS Gender Identity Female 11/15/2021 2:30 AM CDT Sexual Orientation Straight 02/02/2020 9: 00 AM CDT 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 of this encounter Plan of Treatment Upcoming Encounters Date Type Department Care Team (Late st Contact Info) Description 12/01/2024 9:45 AM CDT Hospital Encounter [facility] Digestive Disease [address] [address] Lea Gallardo MD [address] [place] [address] 12/01/2024 9:45 AM CDT - 12/01/2024 10:30 AM CDT Surgery [facility] Digestive Disease [place] [address] [address] Lea Gallardo MD [address] [place] [address] COLONOSCOPY Scheduled Procedures Name Priority Associated Diagnoses [...] COVID: Suspected 09/24/2024 09/24/2024 09/24/2024 3:13 PM MOUNTER CLARINETS documented as of this encounter Care Teams Operator Supply Relationship Specialty Start Date End Date Maddy Romano MD [address] [place] [address] PCP - General 09/28/16 Astrid Haq NP [address] [place] [address] Nurse Practitioner Radiation Oncology 11/05/18 11/07/22 Manas Ibarra MD [address] [place] [address] Referring Physician Thoracic Surgery 11/05/18 Zion Barton MD [address] [place] [address] Radiation Oncologist Radiation Oncology 05/05/19 Molina Charles MD 1 [facility] [address] [place] [address] Referring Physician Transplant Hepatology 12/15/20 Inés Lemus, RN [address] [place] [address] Cook Night 10/31/21 5 Karuna Maria OT Occupational Therapist Occupational Therapy 09/20/22 Renu Treviño, NAGI [address] [place] [address] Nurse Practitioner Radiation Oncology 11/08/22 Eladio Mcrae MD [address] [place] [address] Referring Physician Obstetrics and Gynecology 11/15/22 Tamiko Schroeder RN [address] [place] [address] Cook Night 04/27/24 Briana Poe, TYRA [address] [place] [address] SHOP Outpatient Bone Glue Maker 04/30/24 05/28/24 Marina Le, RN [address] [place] [address] SHOP Outpatient Bone Glue Maker 10/05/24 10/26/24 Chelsea Barker, rn schoolCook Night 11/13/24 documented as of this encounter
[2024-11-19 15:11] LABS: Kit Draw Collected
== END 2024-11-19 13:37 | disposition home or self-care (01) ==
PROVIDERS: PCP Internal Medicine; Visit Provider Transplant Surgery
DX: N18.6 End stage renal disease (principal)
CPT/HCPCS: 36415

== ENCOUNTER 2024-12-15 12:12 | Outpatient (CLI) | payer OTHER, SELFPAY ==
--- OUTSIDE RECORDS SUMMARY | 2024-12-15 12:32 | XMS_ITS | Encounter Summary ---
Author Organization [facility] Address [address] [place] [address] Phone Care Team Providers Care Fly Rail Operator Name Role Phone Maddy Romano MD Primary Care Provider [phone] Manas Ibarra MD Unavailable Zion Barton MD Unavailable Molina Charles MD Unavailable [phone] Karuna Maria OT Unavailable Unavaila Renu Paul NP Unavailable [phone] Eladio Mcare MD Unavailable [phone] Marcy Schroeder RN Unavailable [phone] Chelsea Barker RN Unavailable Unavail able Encounter Details Date Type Department Care Team (Late st Contact Info) Description 12/04/2024 Results Follow-Up [facility] Gastroenterology [address] 12th [place] [address] [place] [address] Molina Charles MD [address] [facility] [address] [place] [address] Social History Tobacco Use Types Packs/Day Years Used Date Smoking Tobacco: Former Cigarettes 0.5 51 1 970 - 2020 Smokeless Tobacco: Never [facility] Utilities Answer Date Recorded In [...] attend chur ch or congregation services? Never 10/05/2024 Do you belong to any clubs o r organizations such as yazdanism groups, unions, fraternal or athletic groups, or [...] any time in the past 12 m [facility], were you homeless or living in a skilled nursing (including now)? No 10/05/2024 Personal Safety Answer Date Recorded Have you ever been in or are you currently in a harmful physical or emotional relationship or is someone making you feel afraid or unsafe? 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 of this encounter Plan of Treatment Scheduled Procedures Name Priority Associated Diagnoses Date/Ti me COLONOSCOPY Routine adult health maintenance LYNOS (nonalcoholic steatohepatitis) documented as of this encounter Visit Diagnoses Not on filedocumented in this encounter Care Teams Fly Rail Operator Relationship Specialty Start Date End Date Maddy Romano MD [address] [place] [address] PCP - General 09/28/16 Manas Ibarra MD [address] [place], [place] [id number] Referring Physician Thoracic Surgery 11/05/18 Zion Barton MD [address] [place], [place] [id number] Radiation Oncologist Radiation Oncology 05/05/19 Molina Charles MD [address] [facility] [address] [place] [address] Referring Physician Transplant Hepatology 12/15/20 Karuna Maria, OT Occupational Therapist Occupational Therapy 09/20/22 Renu Treviño NP [address] [facility] [address] [place] [address] Nurse Practitioner Radiation Oncology 11/08/22 Eladio Mcrae MD [address] [place], [place] [id number] Referring Physician Obstetrics and Gynecology 11/15/22 Marcy Schroeder, RN [address] [place], [place] [id number] Hydroblaster 04/27/24 Chelsea Barker, curb attendantHydroblaster 11/13/24 documented as of this encounter
--- OUTSIDE RECORDS SUMMARY | 2024-12-15 12:32 | XMS_ITS | Encounter Summary ---
Author Organization [facility] Address [address] [place] [address] Care Team Providers Care Office Supervisor Name Role Phone Maddy Romano MD Primary Care Provider [phone] Manas Ibarra MD Unavailable Zion Barton MD Unavailable Molina Charles MD Unavailable [phone] Inés Lemus RN Unavailable [phone] Karuna Maria OT Unavailable Unavaila Renu Paul NP Unavailable [phone] Eladio Mcrae MD Unavailable [phone] Marcy Schroeder RN Unavailable [phone] Briana Poe RN Unavailable [phone] Marina Le RN Unavailable [phone] Chelsea Barker RN Unavailable Unavail able Encounter Details Date Type Department Care Team (Late st Contact Info) Description 05/11/2024 Telephone [facility] [address] [place] [address] Ragini Wheeler, RN Social History Tobacco Use Types Packs/Day Years Used Date Smoking Tobacco: Former Cigarettes 0.5 51 1 970 - 2020 Smokeless Tobacco: Never [facility] Utilities Answer Date Recorded In the [...] often do you attend chur ch or episcopalian services? Never 04/30/2024 Do you belong to [...] place to sleep or slept in a prison (including now)? No 12/31/2022 Housing Stability Vital Sign Answer Terrance e Recorded In the last 12 months, was t here a time when you were not able to pay the mortgage or rent on time? No 04/30/2024 In the past 12 months, how m any times have you moved where you were living? 0 04/30/2024 At any time in the past 12 m [facility], were you homeless or living in a prison (including now)? No 04/30/2024 Personal Safety Answer Date Recorded Have you ever been in or are you currently in a harmful physical or emotional relationship or is someone making you feel afraid or unsafe? 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 Gender Identity Female 11/15/2021 2:30 AM [...] COVID: Suspected 09/24/2024 09/24/2024 09/24/2024 3:13 PM SENIOR SYSTEMS ANALYST documented as of this encounter Care Teams Office Supervisor Relationship Specialty Start Date End Date Maddy Romano MD [address] [place] [address] PCP - General 09/28/16 Manas Ibarra MD [address] [place] [address] Referring Physician Thoracic Surgery 11/05/18 Zion Barton MD [address] [place] [address] Radiation Oncologist Radiation Oncology 05/05/19 Molina Charles MD 1 [facility] [address] [place] [address] Referring Physician Transplant Hepatology 12/15/20 Inés Lemus RN [address] [facility] [address] [place] [address] Interlibrary Loan Specialist 10/31/21 5 Karuna Maria, OT Occupational Therapist Occupational Therapy 09/20/22 Renu Treviño NP [address] [facility] [address] [place] [address] Nurse Practitioner Radiation Oncology 11/08/22 Eladio Mcrae MD [address] [place] [address] Referring Physician Obstetrics and Gynecology 11/15/22 Marcy Schroeder RN [address] [place] [address] Interlibrary Loan Specialist 04/27/24 Briana Poe RN [address] [facility] [address] [place] [address] SHOP Outpatient Mill Washer 04/30/24 05/28/24 Marina Le RN [address] [facility] [address] [place] [address] SHOP Outpatient Mill Washer 10/05/24 10/26/24 Chelsea Barker, police officerInterlibrary Loan Specialist 11/13/24 documented as of this encounter
--- OUTSIDE RECORDS SUMMARY | 2024-12-15 12:32 | XMS_ITS | Encounter Summary ---
Author Organization [facility] Address [address] [place] [address] Care Team Providers Care General Internist And Physician Leader Name Role Phone Maddy Romano MD Primary Care Provider Manas Ibarra MD Unavailable Zion Barton MD Unavailable Molina Charles MD Unavailable [phone] Karuna Maria OT Unavailable Unavaila Renu Paul NP Unavailable [phone] Eladio Mcrae MD Unavailable [phone] Marcy Schroeder RN Unavailable [phone] Chelsea Barker RN Unavailable Unavail able Encounter Details Date Type Department Care Team (Late st Contact Info) Description 12/14/2024 Results Follow-Up [facility] Transplant Liver [address] [facility] [address] [place] [address] Chelsea Barker, RN Social History Tobacco Use Types Packs/Day Years Used Date Smoking Tobacco: Former Cigarettes 0.5 51 1 970 - 2020 Smokeless Tobacco: Never [facility] Utilities Answer Date Recorded In the past 12 months has th e electric, gas, oil, or water [employer] threatened to shut off services in your [...] often do you attend chur ch or druze services? Never 10/05/2024 Do you belong to any clubs o r organizations such as tenriism groups, unions, fraternal or athletic groups, or school groups? No 10/05/2024 How often do you attend meet ings of the clubs or organizations you belong to? Never 10/05/2024 Are you , , di vorced, , never , or living with a partner? 10/05/2024 AUDIT-C Answer Date Recorded Q1: How often do you have a drink containing alcohol? Never 12/14/2024 Q2: How many drinks containi ng alcohol do you have on a typical day when you are drinking? Patient does not drink Q3: How often do you have si x or more drinks on one occasion? Never 12/14/2024 Overall Financial Resource Strain (CARDIA) Answe r [...] any time in the past 12 m [facility], were you homeless or living in a alf (including now)? No 10/05/2024 Personal Safety Answer Date Recorded Have you ever been in or are you currently in a harmful physical or emotional relationship or is someone making you feel afraid or unsafe? 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 ATTENDANT Gender Identity Female 11/15/2021 2:30 AM CDT [...] on filedocumented in this encounter Care Teams General Internist And Physician Leader Relationship Specialty Start Date End Date Maddy Romano MD [address] [place] [address] PCP - General 09/28/16 Manas Ibarra MD [address] [place] [address] Referring Physician Thoracic Surgery 11/05/18 Zion Barton MD [address] [place] [address] Radiation Oncologist Radiation Oncology 05/05/19 Molina Charles MD 1 [facility] [address] [place] [address] Referring Physician Transplant Hepatology 12/15/20 Karuna Maria, OT Occupational Therapist Occupational Therapy 09/20/22 Renu Treviño NP [address] [facility] [address] [place] [address] Nurse Practitioner Radiation Oncology 11/08/22 Eladio Mcrae MD [address] [place] [address] Referring Physician Obstetrics and Gynecology 11/15/22 Marcy Schroeder, RN [address] [place], [place] [id number] Sales Development Coordinator 04/27/24 Chelsea Barker, restaurant associateSales Development Coordinator 11/13/24 documented as of this encounter
--- OUTSIDE RECORDS SUMMARY | 2024-12-15 12:32 | XMS_ITS | Encounter Summary ---
Author Organization Formerly [facility] Address [address] [place] [address] Care Team Providers Care Medical Specialist Name Role Phone Maddy Romano MD Primary Care Provider [phone] Manas Ibarra MD Unavailable Zion Barton MD Unavailable Molina Charles MD Unavailable [phone] Karuna Maria OT Unavailable Unavaila Renu Paul NP Unavailable [phone] Eladio Mcrae MD Unavailable [phone] Marcy Schroeder RN Unavailable [phone] Chelsea Barker RN Unavailable Unavail able Reason for Visit * Auth/Cert (Routine) Specialty Diagnoses / Procedures Referred By Contac t Referred To Contact Diagnoses Esophageal varices without bleeding, unspecified esophageal varices type (HCC) Cirrhosis of liver without ascites, unspecified hepatic cirrhosis type (HCC) Esophageal varices without bleeding, unspecified esophageal varices type (HCC) [I85.00] Cirrhosis of liver without ascites, unspecified hepatic cirrhosis type (HCC) [K74.60] Procedures DC EGD REMOVAL TUMOR POLYP/OTHER LESION SNARE TECH DC ESOPHAGOGASTRODUODENOSCOPY TRANSORAL DIAGNOSTIC ESOPHAGOGASTRODUODENOSCOPY Referral ID Status Reason Start Date Expiration Date Visits Re quested Visits Authorized [id number] 1 1 Encounter Details Date Type Department Care Team (Late st Contact Info) Description 12/14/2024 9:11 AM CDT Anesthesia Event [facility] [address] [place] [address] Ezequiel Waldron MD [address] [place] [address] Anesthesia Record Procedure Summary Procedure Name Responsible Anesthesiologist Anesthesia Start Time Anesthesia Stop Time ESOPHAGOGASTRODUODENOSCOPY Ezequiel Waldron MD 0911 12/14/24 0931 Events Date Time Event Comment 12/14/2024 0841 AN Equip Check 0843 0911 An Start 0911 An Start Data 0911 In Room 0912 Start Supplemental O2 0915 Patient Positioned Laterally 0916 An Induction The patient was reevaluated immediately before moderate or deep sedation use and before anesthesia induction. 0916 Anesthesia Ready 0918 Proc Start 0922 Proc Fin 0927 Out of Room 0928 an stop data 0931 Handoff to RN I completed my handoff to the receiving nurse during which we: 1. Patient identified 2. Responsible provider identified 3. Pertinent medical history reviewed 4. Procedure type and surgical course discussed 5. Intraoperative anesthetic management and any significant issues discussed 6. Expectations and concerns for postop period discussed 7. Questions solicited from receiving nurse 8. Patient disposition at the time of handoff: PACU 0931 An Stop Meds Name Total propofol 180 mg fentaNYL PF 50 mcg Lidocaine IV 2 % 8 mL * Agents Name O2% N2O O2 N2O Air * Blood No blood administrations on file. Lines, Drains, and Airways Type Details Placement Removal Wound 09/26/24; Y; Diasy R N; Abrasion(s); Other (Comment); Left, Proximal (Elbow); Abrasin 09/26/24 0000 by Jason Cain RN Peripheral IV Placement Date: 01/03; Placement Time: 09; Catheter Size: 22 G; Orientation: Right; Location: Hand; Site Prep: Chlorhexidine; Inserted by: xochitl aguiar rn; Insertion Attempts: 1; Patient Tolerance: Tolerated well; Removal Date: 12/14/24; Removal Time: 93912/14/24902 by Kira Aguiar RN 12/14/24939 by Pattie Kong RN documented in this encounter Social History Tobacco Use Types Packs/Day Years Used Date Smoking Tobacco: Former Cigarettes 0.5 51 1 970 - 2020 Smokeless Tobacco: Never [facility] Utilities Answer Date Recorded In the past 12 months has [employer], gas, oil, or water [employer] threatened to shut off services in your [...] How often do you attend chur or mosque services? Never 10/05/2024 Do you belong to any clubs o r organizations such as shinto groups, unions, fraternal or athletic groups, or [...] place to sleep or slept in a fpc (including now)? No 12/31/2022 Housing Stability Vital Sign Answer Terrance e Recorded In the last 12 months, was t here a time when you were not able to pay the mortgage or rent on time? No 10/05/2024 In the past 12 months, how m any times have you moved where you were living? 0 10/05/2024 At any time in the past 12 m [place], were you homeless or living in a fpc (including now)? No 10/05/2024 Personal Safety Answer Date Recorded Have you ever been in or are you currently in a harmful physical or emotional relationship or is someone making you feel afraid or unsafe? 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 of this encounter Functional Status documented as of this encounter OR Notes * Anesthesia Postprocedure Evaluation - Ezequiel Waldron MD - 12/14/2024 2:00 PM CDT Patient: Aleah Levine Procedure Summary Date: 12/14/24 Room / Location: [facility] END[facility]COPY ROOM [facility] Anesthesia Start: 910 Anesthesia Stop: 930 Procedure: ESOPHAGOGASTRODUODENOSCOPY Diagnosis: Esophageal varices without bleeding, unspecified esophageal varices type (HCC) Cirrhosis of liver without ascites, unspecified hepatic cirrhosis type (HCC) (Esophageal varices without bleeding, unspecified esophageal varices type (HCC) [I85.00]) (Cirrhosis of liver without ascites, unspecified hepatic cirrhosis type (HCC) [K74.60]) Providers: Mercy Adler MD PhD Responsible Provider: Ezequiel Waldron MD Anesthesia Type: general TIVA ASA Status: 4 Anesthesia Type: general TIVA Last vitals BP (!) 186/85 Pulse 69 Temp 36.2 ??C (97.2 ??F) (Temporal) Resp 19 SpO2 100% Anesthesia Post Evaluation Patient location during evaluation: PACU Patient participation: complete - patient participated Level of consciousness: fully awake Pain score: 0 Pain management: adequate Airway patency: adequate Evidence of recall: no Cardiovascular status: hemodynamically stable and acceptable Respiratory status: acceptable and room air Hydration status: acceptable Pt is: normothermic Nausea/Vomiting status: none No notable events documented. * Anesthesia Preprocedure Evaluation - Ezequiel Waldron MD - 12/14/2024 8:43 AM CDT Images from the original note were not included. Anesthesia Evaluation Aleah Levine is a 63 y.o. female ESOPHAGOGASTRODUODENOSCOPY Pre-Op Diagnosis Codes: * Esophageal varices without bleeding, unspecified esophageal varices type (HCC) [I85.00] * Cirrhosis of liver without ascites, unspecified hepatic cirrhosis type (HCC) [K74.60] Patient Active Problem List Diagnosis Date Noted Esophageal varices without bleeding (HCC) 12/01/2024 Cirrhosis of liver without ascites (HCC) 12/01/2024 Class 3 severe obesity due to excess calories with serious comorbidity and body mass index (BMI) of40.0 to 44.9 in adult (HCC) 05/29/2024 Stage 3 chronic kidney disease (HCC) 03/06/2023 Closed wedge compression fracture of T1 vertebra, initial encounter (HCC) 01/27/2023 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 12/29/2022 Iron deficiency anemia 11/29/2022 Atrial flutter (HCC) 10/10/2022 Anemia 10/05/2022 Hypertension 10/05/2022 Hepatic encephalopathy (HCC) 07/31/2022 Type 2 diabetes mellitus (HCC) Obstructive sleep apnea Mass of lower lobe of left lung 01/31/2021 Arthritis of right knee 12/13/2020 Mass of lower lobe of right lung 03/14/2018 Monoclonal gammopathy of unknown significance (MGUS) 07/26/2016 Lesion of lung 11/16/2015 Lichen planus 06/03/2012 Past Medical History: Diagnosis Date RT (acute kidney injury) 10/02/2022 Chronic kidney disease Chronic sinusitis Clotting disorder Low platelets bleeding from cuts & scratches. 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 Allergies Allergen Reactions Sulfa (Sulfonamide Antibiotics) Hives Moxifloxacin Itching Taking? Last Dose Start Date End Date Provider blood-glucose meter,continuous (Dexcom G7 Pellet Preparation Operator) misc 12/13/2024 10/02/24 -- Edgard Bruno MD Use as directed. Notes: Okay to dispense alternate Dexcom CGM, with all required components, as covered by insurance. blood-glucose sensor (Dexcom G7 Sensor) device 12/13/2024 10/19/24 -- Sylvain Aguilera MD Use as directed. Change sensor every 10 days. Notes: Okay to dispense alternate Dexcom CGM, with all required components, as covered by insurance. bumetanide (BUMEX) 1 mg tablet 12/13/2024 10/14/24 -- Uri Casas MD Take 2 tablets (2 mg total) by mouth daily Notes: ZERO refills remain on this prescription. Your patient is requesting advance approval of refills for this medication to PREVENT ANY MISSED DOSES glucagon 1 mg kit -- 10/02/24 -- Edgard Bruno MD Inject 1 mg into the muscle once as directed by provider for low blood sugar. insulin glargine (LANTUS) 100 unit/mL (3 mL) pen for injection 12/13/2024 10/02/24 -- Edgard Bruno MD Inject 40 Units under the skin nightly Notes: May sub alternate covered basal insulin in pen/vial. If change to vial, OK sub appropriate volume SUBQ syringes. If sub pen, OK to sub appropriate size pen needles. insulin lispro (ADMELOG) 100 unit/mL pen for injection 12/13/2024 10/02/24 12/14/24 Edgard Bruno MD Inject 5 Units under the skin 3 (three) times a day with meals (plus blood glucose mg/dL 150-199: 1unit, 200-249: 2 units, 250-299: 3 units, 300-349: 4 units, 350 or greater: 5 units. Notify provider for blood glucose greater than 299 mg/dL. Max daily dose 30 units. Refer to After Visit Summary for Sliding Scale Insulin Instructions. Notes: OK combine base prandial & SSI orders. May sub alternate covered rapid- acting insulin inpen/vial. If sub vial, OK sub appropriate volume SUBQ syringe. If sub pen, OK sub appropriately sized pen needles. lactulose solution 10 gram/15mL 12/13/2024 11/25/24 03/25/25 Taiwo Vázquez MD Take 30 mL (20 g total) by mouth 3 (three) times a day Notes: Hold after the third bowel movement ondansetron (ZOFRAN) 4 mg tablet More than a month 06/04/24 -- Taiwo Vázquez MD Take 1 tablet (4 mg total) by mouth every 8 (eight) hours as needed for nausea or vomiting pantoprazole DR (PROTONIX) 40 mg EC tablet More than a month 07/23/24 07/23/25 Taiwo Vázquez MD Take 1 tablet (40 mg total) by mouth daily pen needle, diabetic (BD Ultra-Fine Mini Pen Needle) 31 gauge x 3/16 needle 12/14/2024 09/23/24 -- Sylvain Aguilera MD USE TO INJECT INSULIN SIX TIMES PER DAY pen needle, diabetic (Pen Needle) 32 gauge x 5/32 needle 12/14/2024 10/02/24 -- Edgard Bruno MD Use as directed once a day. Notes: May substitute one size up or down as is available. rifAXIMin (Xifaxan) 550 mg tablet Unknown 12/12/23 -- Molina Charles MD Take 1 tablet (550 mg total) by mouth 2 (two) times a day Notes: PA/Scripts P: [phone] F: [phone] spironolactone (ALDACTONE) 100 mg tablet 12/13/2024 10/02/24 10/02/25 Edgard Bruno MD Take 1 tablet (100 mg total) by mouth daily Notes: PA/Scripts P: [phone] F: [phone] thiamine (VITAMIN B-1) 100 mg tablet 12/13/2024 06/22/24 -- ProviderBrian MD tirzepatide (Mounjaro) 2.5 mg/0.5 mL pen injector injection 12/13/2024 10/14/24 -- Sylvain Aguilera MD Inject 0.5 mL (2.5 mg total) under the skin once a week Flag for Review Taking? Last Dose Start Date End Date Provider acetaminophen (TYLENOL) 325 mg tablet Past Week 02/05/23 -- Zahraa Gallagher NP Take 2 tablets (650 mg total) by mouth every 8 (eight) hours atorvastatin (LIPITOR) 40 mg tablet () -- 10/02/24 11/01/24 Edgard Bruno MD Take 1 tablet (40 mg total) by mouth daily Patient not taking: Reported on 10/08/2024 blood-glucose sensor (Dexcom G6 Sensor) device 12/13/2024 08/19/24 -- Sylvain Aguilera MD Will use 1 sensor every 10 days. 1 box = 3 sensors. blood-glucose transmitter (Dexcom G6 Transmitter) device 12/13/2024 08/19/24 -- Sylvain Aguilera MD Will use 1 transmitter every 90 days Notes: DX Code Needed . fluconazole (DIFLUCAN) 100 mg tablet -- 10/08/24 -- Brian Biggs MD GaviLyte-G [id number] -5.86 gram solution -- 10/07/24 -- ProviderBrian MD Current Facility-Administered Medications: famotidine (PEPCID) injection 20 mg, 20 mg, intravenous, Once ondansetron (ZOFRAN) injection 4 mg, 4 mg, intravenous, Once sodium chloride 0.9% flush 0.5-20 mL, 0.5-20 mL, intra-catheter, PRN sodium chloride 0.9% infusion, 30 mL/hr, intravenous, Continuous sodium chloride 0.9% infusion, 125 mL/hr, intravenous, Continuous Social History Tobacco Use Smoking Status Former Current packs/day: 0.00 Average packs/day: 0.5 packs/day for 51.0 years (25.5 ttl pk-yrs) Types: Cigarettes Start date: 1969 Quit date: 2020 Years since quittin.3 Smokeless Tobacco Never Alcohol Use: Not At Risk (12/14/2024) AUDIT-C Frequency of Alcohol Consumption: Never Average Number of Drinks: Patient does not drink Frequency of Binge Drinking: Never Substance and Sexual Activity Drug Use Never Family History Problem Relation Age of Onset Diabetes Maternal Grandmother Family history of diabetes mellitus - (Added by TW Conv)/Family history of diabetes mellitus - (Added by TW Conv) Cancer Maternal Grandmother Family history of malignant neoplasm - (Added by TW Conv)/Family history of malignant neoplasm - (Added by TW Conv) Cancer Father Family history of malignant neoplasm - (Added by TW Conv)/Family history of malignant neoplasm - (Added by TW Conv) Allergy (severe) Sister Vitals: 12/14/24 0840 Temp: 36.4 ??C (97.5 ??F) PT: 12/04/2024: 15.6 sec (H) INR: 12/04/2024: 1.43 (H) APTT: No results found for requested labs within last 30 days. Hgb A1C: 11/25/2024: 5.5 % CBC RBC: 12/04/2024: 3.29 M/cumm (L) RDW: No results found for requested labs within last 30 days. MCHC: 12/04/2024: 34.1 g/dL MCH: 12/04/2024: 31.6 pg MCV: 12/04/2024: 92.7 fL Hct: 12/04/2024: 30.5 % (L) Hgb: 12/04/2024: 10.4 g/dL (L) WBC: 12/04/2024: 3.67 K/cumm (L) MPV: 12/04/2024: 11.9 fL Platelets: 12/04/2024: 53 K/cumm (L) RDW CV: 12/04/2024: 14.6 % RDW Sd: 12/04/2024: 49.7 fL (H) BMP Glucose: 12/04/2024: 139 mg/dL Calcium: 12/04/2024: 8.9 mg/dL Sodium: 12/04/2024: 145 mmol/L Potassium: 12/04/2024: 3.5 mmol/L CO2: 12/04/2024: 33 mmol/L (H) Chloride: 12/04/2024: 108 mmol/L BUN: 12/04/2024: 16 mg/dL Creatinine: 12/04/2024: 1.49 mg/dL (H) DOS Physical Exam Medical history, medications, and allergies reviewed. Attestation: This PAT evaluation Airway Exam: Mallampati: III Cervical ROM: FROM Cardiovascular Exam: Rate: regular Rhythm: regular Murmur: grade II/ Pulmonary Exam: LCTA, bilat Dental Exam: Missing and loose Additional comments: Right lower 1st molar loose Anesthesia Plan ASA 4 Planned anesthesia: General TIVA Informed Consent: Anesthesia plan and risks discussed with patient. Consent and Attending signature: I and/or my designee have discussed the anesthesia plan, benefits, possible alternatives, parental presence at time of induction (if indicated), and clinically relevant risks that may include dental injury, unintentional awareness, and/or other complications. The patient and/or parent/legal guardian understand, and agree to proceed. All questions answered. Plan and Consent Comments: M obesity, cirrhosis, thrombocytopenia; PFO, documented in this encounter Plan of Treatment Scheduled Procedures Name Priority Associated Diagnoses Date/Ti oh COLONOSCOPY Routine adult health maintenance LYONS (nonalcoholic steatohepatitis) documented as of this encounter Visit Diagnoses Not on filedocumented in this encounter Administered Medications Inactive Administered Medications - up to 3 most recent administrations Medication Order MAR Action Action Date Dose Rate Site fentaNYL (SUBLIMAZE) preservative free injection intravenous, As needed, Starting on Sat12/14/24 at 0912, Anesthesia Intra-op Given 12/14/2024 9:12 AM CDT 50 mcg lidocaine (XYLOCAINE) 20 mg/mL (2 %) injection intravenous, As needed, Starting on Sat12/14/24 at 0916, Anesthesia Intra-op, Indications: Administration of Local AnesthesiaIndications:Administrati on of Local Anesthesia Given 12/14/2024 9:22 AM CDT 3 mL Given 12/14/2024 9:16 AM CDT 5 mL propofoL (DIPRIVAN) 10 mg/mL IV intravenous, As needed, Starting on Sat12/14/24 at 0916, Anesthesia Intra-op Given 12/14/2024 9:21 AM CDT 30 mg Given 12/14/2024 9:19 AM CDT 50 mg Given 12/14/2024 9:16 AM CDT 100 mg documented in this encounter Care Teams Medical Specialist Relationship Specialty Start Date End Date Maddy Romano MD [address] [place] [address] PCP - General 09/28/16 Manas Ibarra MD [address] [place] [address] Referring Physician Thoracic Surgery 11/05/18 Zion Barton MD [address] [place] [address] Radiation Oncologist Radiation Oncology 05/05/19 Molina Charles MD [address] [facility] [address] [place] [address] Referring Physician Transplant Hepatology 12/15/20 Karuna Maria, OT Occupational Therapist Occupational Therapy 09/20/22 Renu Treviño NP [address] [facility] [address] [place] [address] Nurse Practitioner Radiation Oncology 11/08/22 Eladio Mcrae MD [address] [place] [address] Referring Physician Obstetrics and Gynecology 11/15/22 Marcy Schroeder, RN [address] [place], [place] [id number] Fast Food Crew Member 04/27/24 Chelsea Barker, shake makerFast Food Crew Member 11/13/24 documented as of this encounter
--- OUTSIDE RECORDS SUMMARY | 2024-12-15 12:32 | XMS_ITS | Clinical Summary ---
Author Organization [facility] Address [address] [place] [address] Care Team Providers Care General Counselor Name Role Phone Unavailable Primary Care Provider Unavailabl e Source Comments [facility],non-owned Affiliates and Associated Physician Practices is amultiple site organization consisting of ambulatory clinics and hospital sitesin [place], [place], [place] and [place]. This disclosure is being madepursuant to the Care Everywhere program and may not contain all information available regarding this patient. 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
--- OUTSIDE RECORDS SUMMARY | 2024-12-15 12:32 | XMS_ITS | Encounter Summary ---
Author Organization [facility] Address [address] [place] [address] Phone Care Team Providers Care Commercial Marketing Specialist Name Role Phone Maddy Romano MD Primary Care Provider Astrid Haq NP Unavailable Manas Ibarra MD Unavailable Zion Barton MD Unavailable Molina Charles MD Unavailable [phone] Inés Lemus RN Unavailable [phone] Karuna Maria OT Unavailable Unavaila Renu Paul NP Unavailable [phone] Eladio Mcrae MD Unavailable Marcy Schroeder RN Unavailable [phone] Briana Poe RN Unavailable Marina Le RN Unavailable [phone] Chelsea Barker RN Unavailable Unavail able Encounter [...] on file 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 Gender Identity Female 11/15/2021 2:30 AM [...] COVID: Suspected 09/24/2024 09/24/2024 09/24/2024 3:13 PM WEB PRESS OPERATOR ASSISTANT documented as of this encounter Care Teams Commercial Marketing Specialist Relationship Specialty Start Date End Date Maddy Romano MD [address] [place] [address] PCP - General 09/28/16 Astrid Haq NP [address] [place] [address] Nurse Practitioner Radiation Oncology 11/05/18 11/07/22 Manas Ibarra MD [address] [place] [address] Referring Physician Thoracic Surgery 11/05/18 Zion Barton MD [address] [place] [address] Radiation Oncologist Radiation Oncology 05/05/19 Molina Charles MD [address] [facility] [address] [place] [address] Referring Physician Transplant Hepatology 12/15/20 Inés Lemus, TYRA [address] [facility] [address] [place] [address] Security Control Center Operator 10/31/21 5 Karuna Maria OT Occupational Therapist Occupational Therapy 09/20/22 Renu Treviño, NAGI [address] [facility] [address] [place] [address] Nurse Practitioner Radiation Oncology 11/08/22 Eladio Mcrae MD [address] [place], [place] [id number] Referring Physician Obstetrics and Gynecology 11/15/22 Marcy Schroeder, RN [address] [place] [address] Security Control Center Operator 04/27/24 Briana Poe, TYRA [address] [facility] [address] [place] [address] SHOP Outpatient Igniter Assembler 04/30/24 05/28/24 Marina Le RN [address] [facility] [address] [place] [address] SHOP Outpatient Igniter Assembler 10/05/24 10/26/24 Chelsea Barker, rand makerSecurity Control Center Operator 11/13/24 documented as of this encounter
--- OUTSIDE RECORDS SUMMARY | 2024-12-15 12:32 | XMS_ITS | Encounter Summary ---
Author Organization [facility] Address [address] [place] [address] Care Team Providers Care Interpreter Translator Name Role Phone Maddy Romano MD Primary Care Provider [phone] Manas Ibarra MD Unavailable Zion Barton MD Unavailable Molina Charles MD Unavailable [phone] Karuna Maria OT Unavailable Unavaila Renu Paul NP Unavailable [phone] Eladio Mcrae MD Unavailable [phone] Marcy Schroeder RN Unavailable [phone] Chelsea Barker RN Unavailable Unavail able [...] unspecified hepatic cirrhosis type (HCC) [K74.60] Procedures KS EGD REMOVAL TUMOR POLYP/OTHER LESION SNARE TECH [place] ESOPHAGOGASTRODUODENOSCOPY TRANSORAL DIAGNOSTIC ESOPHAGOGASTRODUODENOSCOPY Referral ID Status Reason Start Date Expiration Date Visits Re quested Visits Authorized [id number] 1 1 Encounter Details Date Type Department Care Team (Late st Contact Info) Description 12/14/2024 8:08 AM CDT - 12/14/2024 10:14 AM CDT Hospital Encounter [facility] Endoscopy [id number] [place] [id number] Mercy Adler MD PhD [address] [place] [address] Discharge Disposition: Discharge to home or self care Social History Tobacco Use Types Packs/Day Years Used Date Smoking Tobacco: Former Cigarettes 0.5 51 1 - 2020 Smokeless Tobacco: Never [facility] Utilities Answer Date Recorded In the past 12 months has [employer], gas, oil, or water company threatened to [...] often do you attend chur ch or sabianism services? 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 of this encounter Last Filed Vital Signs Vital Sign Reading Time Taken Comments Blood Pressure 186/85 12/14/2024 9:40 AM CDT Pulse 69 12/14/2024 9:43 AM CDT Temperature 36.2 C (97.2 F) 12/14/2024 9:28 AM CDT Respiratory Rate 19 12/14/2024 9:43 AM CDT Oxygen Saturation 100% 12/14/2024 9:43 AM CDT Inhaled Oxygen Concentration - - Weight 119.7 kg (264 lb) 12/14/2024 8:40 AM CDT Height 170.2 cm (5' 7 ) 12/14/2024 8:40 AM CDT Body Mass Index 41.35 12/14/2024 8:40 AM CDT documented in this encounter Functional Status documented as of this encounter Discharge Instructions * Discharge Instructions* Pattie Kong RN - 12/14/2024 9:35 AM CDT SCOPE DISCHARGE INSTRUCTIONS You have had an Esophagogastroduodenoscopy (EGD) procedure. Sedation: You were given medication for sedation. You may feel drowsy or tired for a few hours. We recommend you not be alone today. Please do not participate in activities that require good coordination or concentration such as driving a car or operating machinery for the next 24 hours. Protect yourself against falls, especially on the stairs or when walking long distances. Delay making businessdecisions that require the signing of legal documents for a minimum of 24 hours. No alcoholic beverages for 24 hours. Diet: Type of diet ordered {GI diet instructions:94517084}. You may eat and drink at . IV: If the IV site swells or bleeds, please apply direct pressure for 5 minutes. If the site becomes red, you may apply warm, moist compresses to the site. Please see a healthcare professional if youhave concerns about your IV site. Pain/Bleeding: You have had {POST BIOPSY/DILITATION:34783776} performed during the procedure. You may expect a little bleeding from the site. Within the next 48 hours, if the bleeding becomes excessive or is accompanied by abdominal or chest pain, please call your physician immediately. If you are on aspirin or NSAIDS (non-steroidal anti-inflammatory drugs) then you can resume {Endo ASA/NSAIDS:99201582}. If no follow-up appointment is required, you may receive a letter or phone call from the physician regarding your test/biopsy results within the next two weeks. A note will also be sent to your referring physician. If you have any questions, please call your physician's office. documented in this encounter Medications at Time of Discharge acetaminophen (TYLENOL) 325 mg tabletIndications:P ain Take 2 tablets (650 mg total) by mouth every 8 (eight) hours 02/05/2023 blood-glucose meter,continuous (Dexcom G7 Sr. Logistics Analyst) misc Use as directed. 1 each 10/02/2024 blood-glucose sensor (Dexcom G6 Sensor) deviceIndications:T ype 2 diabetes mellitus with stage 3a chronic kidney disease, unspecified whether intermediate insulin use (HCC) Will use 1 sensor every 10 days. 1 box = 3 sensors. 3 each 5 08/19/2024 blood-glucose sensor (Dexcom G7 Sensor) device Use as directed. Change sensor every 10 days. 3 each 11 10/19/2024 blood-glucose transmitter (Dexcom G6 Transmitter) deviceIndications:T ype 2 diabetes mellitus without complication, unspecified whether intermediate insulin use (HCC) Will use 1 transmitter every 90 days 1 each 1 08/19/2024 bumetanide (BUMEX) 1 mg tabletIndications:S tage 3b chronic kidney disease (HCC) Take 2 tablets (2 mg total) by mouth daily 270 tablet 10/14/2024 fluconazole (DIFLUCAN) 100 mg tablet Take 1 tablet (100 mg total) by mouth daily 10/08/2024 glucagon 1 mg kit Inject 1 mg into the muscle once as directed by provider for low blood sugar. 1 kit 10/02/2024 insulin glargine (LANTUS) 100 unit/mL (3 mL) pen for injection Inject 40 Units under the skin nightly 15 mL 10/02/2024 insulin lispro (ADMELOG) 100 unit/mL pen for [...] for Sliding Scale Insulin Instructions. 15 mL 10/02/2024 lactulose solution 10 gram/15mLIndication s:Portosystemic encephalopathy (HCC) Take 30 mL (20 g total) by mouth 3 (three) times a day 3785 mL 3 11/25/2024 03/25/20 25 pen needle, diabetic (BD Ultra-Fine Mini Pen Needle) 31 gauge x 10/25 needleIndications:T ype 2 diabetes mellitus without complication, unspecified whether intermediate insulin use (HCC) USE TO INJECT INSULIN SIX TIMES PER DAY 200 each 11 09/23/2024 pen needle, diabetic (Pen Needle) 32 gauge x 32 needle Use as directed once a day. 100 each 10/02/2024 spironolactone (ALDACTONE) 100 mg tablet Take 1 tablet (100 mg total) by mouth daily 30 tablet 10/02/2024 10/02/19 26 thiamine (VITAMIN B-1) 100 mg tablet Take 1 tablet (100 mg total) by mouth daily 06/22/2024 tirzepatide (Mounjaro) 2.5 mg/0.5 mL pen injector injection Inject 0.5 mL (2.5 mg total) under the skin once a week 2 mL 11 10/14/2024 ondansetron (ZOFRAN) 4 mg tablet Take 1 tablet (4 mg total) by mouth every 8 (eight) hours as needed for nausea or vomiting 30 tablet 1 06/04/[address] (PROTONIX) 40 mg EC tablet Take 1 tablet (40 mg total) by mouth daily 30 tablet 11 07/23/2024 07/23/20 25 rifAXIMin (Xifaxan) 550 mg tabletIndications:H epatic encephalopathy (HCC),Cirrhosis of liver without ascites, unspecified hepatic cirrhosis type (HCC) Take 1 tablet (550 mg total) by mouth 2 (two) times a day 60 tablet 11 12/12/2023 documented as of this encounter Discharge Disposition Disposition Code Departure Means Destination Comment s Discharge to home or self care documented in this encounter H&P Notes * Mercy Adler MD PhD - 12/10/2024 2:20 PM CDT Pre Endoscopy History and Physical Aleah Levine is a 63 y.o. female who is here for Procedure(s): ESOPHAGOGASTRODUODENOSCOPY The indication(s) for the procedure(s): screening for esophageal varices. Past Medical History: Diagnosis Date TR (acute kidney injury) 10/02/2022 Chronic kidney disease Chronic sinusitis Clotting disorder Low platelets bleeding from cuts & scratches. 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 HTN 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, 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, radiation oncology ERNESTINE (obstructive sleep apnea) Portal vein thrombosis Past Surgical History: Procedure Laterality Date BIOPSY LIVER N/A 06/02/2014 BREAST BIOPSY Right 12/20/2021 CARPAL TUNNEL RELEASE Bilateral 2000 CATARACT EXTRACTION SECTION COLONOSCOPY ENDOMETRIAL ABLATION 1998 ESOPHAGOGASTRODUODENOSCOPY SINUS SURGERY Bilateral x2 TONSILLECTOMY Bilateral 1966 US ABDOMEN COMPLETE W LIVER DOPPLER (C) Right 10/27/2018 Social History Tobacco Use Smoking status: Former Current packs/day: 0.00 Average packs/day: 0.5 packs/day for 51.0 years (25.5 ttl pk-yrs) Types: Cigarettes Start date: 1969 Quit date: 2020 Years since quittin.3 Smokeless tobacco: Never Substance and Sexual Activity Drug use: Never Sexual activity: Not Currently Alcohol Use: Not At Risk (10/08/2024) AUDIT-C Frequency of Alcohol Consumption: Never Average Number of Drinks: Patient does not drink Frequency of Binge Drinking: Never Family History Problem Relation Age of [...] (Added by TW Conv) Allergy (severe) Sister Allergies Allergen Reactions Sulfa (Sulfonamide Antibiotics) Hives Moxifloxacin Itching Prior to Admission medications Medication Sig Start Date End Date Taking? Authorizing Provider acetaminophen (TYLENOL) 325 mg tablet Take 2 tablets (650 mg total) by mouth every 8 (eight) hours 02/05/23 Zahraa Gallagher NP atorvastatin (LIPITOR) 40 mg tablet Take 1 tablet (40 mg total) by mouth daily Patient not taking: Reported on 10/08/2024 10/02/24 11/01/24 Edgard Bruno MD blood-glucose meter,continuous (Dexcom G7 Sr. Logistics Analyst) [facility] [place] as directed. 10/02/24 Edgard Bruno MD blood-glucose sensor (Dexcom G6 Sensor) device Will use 1 sensor every 10 days. 1 box = 3 sensors. 08/19/24 Sylvain Aguilera MD blood-glucose sensor (Dexcom G7 Sensor) device Use as directed. Change sensor every 10 days. 10/19/24 Sylvain Aguilera MD blood-glucose transmitter (Dexcom G6 Transmitter) device Will use 1 transmitter every 90 days 08/19/24 Sylvain Aguilera MD bumetanide (BUMEX) 1 mg tablet Take 2 tablets (2 mg total) by mouth daily 10/14/24 Uri Casas MD fluconazole (DIFLUCAN) 100 mg tablet Take 1 tablet (100 mg total) by mouth daily Patient not taking: Reported on 12/03/2024 10/08/24 Brian Biggs MD GaviLyte-G 236-22.74-6.74 -5.86 gram solution FOLLOW INSTRUCTIONS SENT TO YOU. DRINK HALF OF THE NIGHT BEFORE THE TEST AT 6PM. DRINK THE OTHER HALF THE MORNING OF TEST 4 HOURS BEFORE LEAVING. Patient not taking: Reported on 12/03/2024 10/07/24 Brian Biggs MD glucagon 1 mg kit Inject 1 mg into the muscle once as directed by provider for low blood sugar. 10/02/24 Edgard Bruno MD insulin glargine (LANTUS) 100 unit/mL (3 mL) pen for injection Inject 40 Units under the skin nightly 10/02/24 Edgard Bruno MD insulin lispro (ADMELOG) 100 unit/mL pen for [...] Visit Summary for Sliding Scale Insulin Instructions. Edgard Bruno MD lactulose solution 10 gram/15mL Take 30 mL (20 g total) by mouth 3 (three) times a day 11/25/24 03/25/25 Taiwo Vázquez MD ondansetron (ZOFRAN) 4 mg tablet Take 1 tablet (4 mg total) by mouth every 8 (eight) hours as needed for nausea or vomiting 06/04/24 Taiwo Vázquez MD pantoprazole DR (PROTONIX) 40 mg EC tablet Take 1 tablet (40 mg total) by mouth daily 07/23/24 07/23/25 Taiwo Vázquez MD pen needle, diabetic (BD Ultra-Fine Mini Pen Needle) 31 gauge x 3/16 needle USE TO INJECT INSULIN SIX TIMES PER DAY 09/23/24 Sylvain Aguilera MD pen needle, diabetic (Pen Needle) 32 gauge x 5/32 needle Use as directed once a day. 10/02/24 Edgard Bruno MD rifAXIMin (Xifaxan) 550 mg tablet Take 1 tablet (550 mg total) by mouth 2 (two) times a day 12/12/23 Molina Charles MD spironolactone (ALDACTONE) 100 mg tablet Take 1 tablet (100 mg total) by mouth daily 10/02/24 10/02/25 Edgard Bruno MD thiamine (VITAMIN B-1) 100 mg tablet Take 1 tablet (100 mg total) by mouth daily 06/22/24 ProviderBrian MD tirzepatide (Mounjaro) 2.5 mg/0.5 mL pen injector injection Inject 0.5 mL (2.5 mg total) under the skin once a week 10/14/24 Sylvain Aguilera MD Review of Systems A pertinent, focused review of systems was completed and negative, except as noted above. OBJECTIVE: Vitals: Vitals: 12/03/24 1643 Weight: 120.2 kg (265 lb) Height: 170.2 cm (5' 7 ) Physical Exam: Airway: No significant abnormality. Cardiac: No significant abnormality. Pulmonary: No significant abnormality. Neurological: No significant abnormality. Gastrointestinal: No significant abnormality. ASA Score: per Anesthesia Sedation/Anesthesia Plan: per Anesthesia The risks and complications of the procedure have been explained to the patient. Informed consent was signed. Impression and plan: Will proceed with the planned procedure for the reasons stated above. documented in this encounter Procedure Notes * Mercy Adler MD PhD - 12/14/2024 8:57 AM CDTAssociated Order(s): EGD ENDOSCOPY LAB Patient Name: Aleah Levine Procedure Date: 12/14/2024 8:57 AM Date of : 1960 Admit Type: Outpatient Age: 63 Gender: Female Attending MD: Mercy Adler M.D. Room: [facility] ENDOSCOPY ROOM 03 Note Status: Finalized Procedure: Upper GI endoscopy Indications: Cirrhosis rule out esophageal varices Providers: Mercy Adler M.D. Referring MD: Maddy Romano M.D. Medicines: Monitored Anesthesia Care Complications: No immediate complications. Estimated Blood Loss: Estimated blood loss: none. Procedure: Pre-Anesthesia Assessment: - Immediately prior to administration of medications, the patient was re-assessed for adequacy to receive sedatives. After obtaining informed consent, the endoscope was passed under direct vision. Throughout the procedure, the patient's blood pressure, pulse, and oxygen saturations were monitored continuously. The [id number] was introduced through the mouth, and advanced to the second part of duodenum. The upper GI endoscopy was accomplished without difficulty. The patient tolerated the procedure well. Findings: The examined esophagus was normal. Mild portal hypertensive gastropathy was found in the gastric body. The examined duodenum was normal. A single 3 mm sessile inflammatoryhyperplastic appearing polyp with no bleeding and no stigmata of recent bleeding was found in the stomach. Impression: - Normal esophagus. - Portal hypertensive gastropathy. - Normal examined duodenum. - A single gastric polyp. - No specimens collected. Recommendation: - Repeat upper endoscopy in 2 years for surveillance. - Return to liver transplant clinic as previously scheduled. Attending Participation: I personally performed the entire procedure. Electronically signed by Mercy Adler MD Mercy Adler M.D. 12/14/2024 9:32:29 AM Number of Addenda: 0 Note Initiated On: 12/14/2024 8:57 AM documented in this encounter Miscellaneous Notes * Perioperative Nursing Note - Pattie Kong RN - 12/14/2024 9:43 AM CDT discussed findings. Discharge instructions given to patient, (and by phone - directed to tow picker location).Understanding expressed, questions answered.(No signatures due to CoVid19 protocol) Tolerating po fluids. * Pre-Procedure Instructions - Vania Russell RN - 12/03/2024 4:44 PM CDT You have an appointment for an upper endoscopy [facility] 12/14/24. Arrival time 8:15 am for 9:15 am procedure Our address is: [id number] [place] [address] [place] [address] Do not eat or drink after midnight 12/13/24, do not eat or drink prior to procedure 12/14/24-but pleasefollow Dr Adler's office instruction Call your cylinder grinder for insulin instruction and to see if you can safely skip mounjaro 12/08/24 Leave valuables at home-king, credit cards, jewelry Due to the anesthesia you will not be able to drive. Please have a ride arranged to and from hospital with a responsible adult. No form of public transportation by yourself will be allowed:Cab, Uber,Lyft When you arrive come in through hospital main entrance and check in at the information desk For questions or if you cannot make this appointment and wish to reschedule please call the gastroenterology office [phone] Thank you documented in this encounter Plan of Treatment Scheduled Procedures Name Priority Associated Diagnoses Date/Ti me COLONOSCOPY Routine adult health maintenance LYONS (nonalcoholic steatohepatitis) documented as of this encounter Procedures Procedure Name Priority Date/Time Associated Diagnosis Comments ESOPHAGOGASTRODUODENOSCOPY 12/14 9:11 AM CDT Esophageal varices without bleeding, unspecified esophageal varices type (HCC) Cirrhosis of liver without ascites, unspecified hepatic cirrhosis type (HCC) EGD 12/14/2024 8:57 AM CDT POCT GLUCOSE DEVICE Routine 12/14/2024 8 :56 AM CDT documented in this encounter Results * EGD (12/14/2024 8:57 AM CDT) Anatomical Region Laterality Modality Other Narrative Procedure Note Mercy Adler MD PhD - 12/14/2024 8:57 AM CDT ENDOSCOPY LAB Patient Name: Aleah Levine Procedure Date: 12/14/2024 8:57 AM Date of : 1960 Admit Type: Outpatient Age: 63 Gender: Female Attending MD: Mercy Adler M.D. Room: [facility] ENDOSCOPY ROOM 03 Note Status: Finalized Procedure: Upper GI endoscopy Indications: Cirrhosis rule out esophageal varices Providers: Mercy Adler M.D. Referring MD: Maddy Romano M.D. Medicines: Monitored Anesthesia Care Complications: No immediate complications. Estimated Blood Loss: Estimated blood loss: none. Procedure: Pre-Anesthesia Assessment: - Immediately prior to administration ofmedications, the patient was re-assessed for adequacy to receive sedatives. After obtaining informed consent, the endoscope was passed under direct vision. Throughout theprocedure, the patient's blood pressure, pulse, and oxygen saturations were monitored continuously. The [id number] was introduced through the mouth, and advanced to the second part of duodenum. Theupper GI endoscopy was accomplished without difficulty.The patient tolerated the procedure well. Findings: The examined esophagus was normal. Mild portal hypertensive gastropathy was found in the gastric body. The examined duodenum was normal. A single 3 mm sessile inflammatoryhyperplastic appearing polyp withno bleeding and no stigmata of recent bleeding was found in thestomach. Impression: - Normal esophagus. - Portal hypertensive gastropathy. - Normal examined duodenum. - A single gastric polyp. - No specimens collected. Recommendation: - [facility] - [facility] to [facility] clinic as previously scheduled. Attending Participation: I personally performed the entire procedure. Electronically signed by Mercy Adler MD Mercy Adler M.D. 12/14/2024 9:32:29 AM Number of Addenda: 0 Note Initiated On: 12/14/2024 8:57 AM Mercy Adler MD PhD ENDOSCOPY PROC EDURES Final Result * POCT glucose (12/14/2024 8:56 AM CDT) Glucose, POC 131 70 - 199 mg/dL Comment: Interpretive Data Glucose is assumed to be non-fasting. Fasting Glucose reference ranges are: 0 - 150 years: 70 mg/dL - 99 mg/dL Current interpretive data was last revised on 2014. POC Performer [id number] CHARISSA SOLER POC Device Number [id number] CHARISSA ELIAS Blood 12/14/2024 8:56 AM CDT 12/14/2024 8:56 AM CDT us Mercy Adler MD PhD LAB POCT ORDER RAVEN - DEVICE Final Result CHARISSA BJWCH [id number] [facility]. Department of [employer] [place] [place] [address] documented in this encounter Visit Diagnoses Diagnosis Esophageal varices without bleeding (HCC) Esophageal varices without mention of bleeding Cirrhosis of liver without ascites (HCC) documented in this encounter Admitting Diagnoses Diagnosis Esophageal varices without bleeding (HCC) Esophageal varices without mention of bleeding Cirrhosis of liver without ascites (HCC) documented in this encounter Administered Medications Inactive Administered Medications - up to 3 most recent administrations Medication Order MAR Action Action Date Dose Rate Site famotidine (PEPCID) injection 20 mg 20 mg, intravenous, Administer over 2 Minutes, Once, On Sat12/14/24 at 0915, For 1 dose, Pre-Op, Indications: RefluxIndications:Reflux Given 12/14/2024 8:58 AM CDT 20 mg ondansetron (ZOFRAN) injection 4 mg 4 mg, intravenous, Administer over 2 Minutes, Once, On Sat12/14/24 at 0915, For 1 dose, Pre-Op, At closure , Indications: Prevention of Post-Operative Nausea and VomitingIndications:Prevent ion of Post-Operative Nausea and Vomiting Given 12/14/2024 8:58 AM CDT 4 mg sodium chloride 0.9% flush 0.5-20 mL 0.5-20 mL, intra-catheter, As needed, line care, Starting on Sat12/14/24 at 0830, Pre-Procedure (GI), Flush volume based on line type and size. Flush before and after each use. , Indications: FlushingIndications:Flushin g sodium chloride 0.9% infusion 30 mL/hr, intravenous, Continuous, Starting on Sat12/14/24 at 0915, Pre-Procedure (GI) sodium chloride 0.9% infusion 125 mL/hr, intravenous, Continuous, Starting on Sat12/14/24 at 0915, Pre-Op, Indications: sigmoidoscopy/colonoscopy patientsIndications:sigmoid oscopy/colonoscopy patients New Bag 12/14/2024 8:54 AM CDT 125 mL/hr 125 mL/hr documented in this encounter Discontinued Medications Medication Sig Discontinue Reason Start Date End Da te GaviLyte-G 236-22.74-6.74 -5.86 gram solution Stop Taking at Discharge 10/07/2024 025 documented as of this encounter Historical Medications * This list may reflect changes made after this encounter. fluconazole (DIFLUCAN) 100 mg tablet Take 1 tablet (100 mg total) by mouth daily 10/08/2024 GaviLyte-G 236-22.74-6.74 -5.86 gram solution 10/07/2024 12/14/2024 added in this encounter Active and Recently Administered Medications Times are shown in CDT. Scheduled Medication Order 12/12/2024 12/13/2024 12/14/2024 famotidine (PEPCID) injection 20 mg (COMPLETED) 20 mg, intravenous, Administer over 2 Minutes, Once, On Sat12/14/24 at 0915, For 1 dose, Pre-Op, Indications: Reflux 0858 (Given - Provid er: Kira Sheridan RN) ondansetron (ZOFRAN) injection 4 mg (COMPLETED) 4 mg, intravenous, Administer over 2 Minutes, Once, On Sat12/14/24 at 0915, For 1 dose, Pre-Op, At closure , Indications: Prevention of Post-Operative Nausea and Vomiting 0858 (Given - Provid er: Kira Sheridan RN) Continuous Medication Order 12/12/2024 12/13/2024 12/14/2024 sodium chloride 0.9% infusion 30 mL/hr, intravenous, Continuous, Starting on Sat12/14/24 at 0915, Pre-Procedure (GI) 0915 (Due) sodium chloride 0.9% infusion 125 mL/hr, intravenous, Continuous, Starting on Sat12/14/24 at 0915, Pre-Op, Indications: sigmoidoscopy/colonoscopy patients 0854 (New Bag - Prov ider: Kira Sheridan RN)0940 (Stopped - Provider: Pattie Kong RN) PRN Medication Order 12/12/2024 12/13/2024 12/14/2024 ondansetron (ZOFRAN) injection 4 mg 4 mg, intravenous, Administer over 2 Minutes, Every 30 min PRN, nausea, vomiting, Starting on Sat12/14/24 at 0934, For 2 doses, Recovery (GI), Indications: Nausea and Vomiting sodium chloride 0.9% flush 0.5-20 mL 0.5-20 mL, intra-catheter, As needed, line care, Starting on Sat12/14/24 at 0830, Pre-Procedure (GI), Flush volume based on line type and size. Flush before and after each use. , Indications: Flushing documented in this encounter Orders Medications Ordered That Dylan ht Not Have Been Administered Count Last Ordered Date First Ordered Date ondansetron (ZOFRAN) injection 4 mg 1 12/14 sodium chloride 0.9% flush 0.5-20 mL 1 12/2024 sodium chloride 0.9% infusion 1 12/14/2024 Discharge Count Last Ordered Date First Orde red Date DISCHARGE PATIENT 1 12/14/2024 documented in this encounter Care Teams Interpreter Translator Relationship Specialty Start Date End Date Maddy Romano MD [address], [place] [id number] PCP - General 09/28/16 Manas Ibarra MD [address] [place] [address] Referring Physician Thoracic Surgery 11/05/18 Zion Barton MD [address], [place] [id number] Radiation Oncologist Radiation Oncology 05/05/19 Molina Charles MD [address] [facility] [address] [place], [place] [id number] Referring Physician Transplant Hepatology 12/15/20 Karuna Maria, OT Occupational Therapist Occupational Therapy 09/20/22 Renu Treviño NP [address] [facility] [address] [place], [place] [id number] Nurse Practitioner Radiation Oncology 11/08/22 Eladio Mcrae MD [address] [place] [address] Referring Physician Obstetrics and Gynecology 11/15/22 Marcy Schroeder, RN [address] [place] [address] Outside Barrel Lathe Operator 04/27/24 Chelsea Barker, church administratorOutside Barrel Lathe Operator 11/13/24 documented as of this encounter
--- OUTSIDE RECORDS SUMMARY | 2024-12-15 12:32 | XMS_ITS | Encounter Summary ---
Author Organization [facility] Address [address] [place] [address] Care Team Providers Care Customer Assistance Representative Name Role Phone Maddy Romano MD Primary Care Provider [phone] Manas Ibarra MD Unavailable Zion Barton MD Unavailable [phone] Molina Charles MD Unavailable [phone] Karuna Maria OT Unavailable Unavaila Renu Paul NP Unavailable [phone] Eladio Mcrae MD Unavailable [phone] Marcy Schroeder RN Unavailable [phone] Chelsea Barker RN Unavailable Unavail able Encounter Details Date Type Department Care Team (Late st Contact Info) Description 12/14/2024 Telephone [facility] Transplant Liver [address] [facility] [phone] [place] [address] Chelsea Barker, RN Social History Tobacco Use Types Packs/Day Years Used Date Smoking Tobacco: Former Cigarettes 0.5 51 1 970 - 2020 Smokeless Tobacco: Never [facility] Utilities Answer Date Recorded In [...] place to sleep or slept in a half-way (including now)? No 12/31/2022 Housing Stability Vital Sign Answer Terrance e Recorded In the last 12 months, was t here a time when you were not able to pay the mortgage or rent on time? No 10/05/2024 In the past 12 months, how m any times have you moved where you were living? 0 10/05/2024 At any time in the past 12 m [facility], were you homeless or living in a half-way (including now)? No 10/05/2024 Personal Safety Answer Date Recorded Have you ever been in or are you currently in a harmful physical or emotional relationship or is someone making you feel afraid or unsafe? 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 Blood work had been sent to [facility], so patient was unable to get repeat CMP. Catalino was asking if they could have it done at [place] because she is having kidney labs done there tomorrow. Per finance algorithm, patient can go due to local facility due to being an hour away. Will send one time lab orders to [facility] at [phone]. 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- Primary documented in this encounter Care Teams Customer Assistance Representative Relationship Specialty Start Date End Date Maddy Romano MD [address] [place], [place] [address] PCP - General 09/28/16 Manas Ibarra MD [address] [place], [place] [address] Referring Physician Thoracic Surgery 11/05/18 Zion Barton MD [address] [place], [place] [address] Radiation Oncologist Radiation Oncology 05/05/19 Molina Charles MD [address] [place] [address] [address] [place] [address] Referring Physician Transplant Hepatology 12/15/20 Karuna Maria OT Occupational Therapist Occupational Therapy 09/20/22 Renu Treviño NP [address] [facility] [address] [place] [address] Nurse Practitioner Radiation Oncology 11/08/22 Eladio Mcrae MD [address] [place], [place] [address] Referring Physician Obstetrics and Gynecology 11/15/22 Marcy Schroeder, RN [address] [place] [address] Qa Consultant 04/27/24 Chelsea Barker, rock workerQa Consultant 11/13/24 documented as of this encounter
--- OUTSIDE RECORDS SUMMARY | 2024-12-15 12:32 | XMS_ITS | Clinical Summary ---
Author Organization [facility] Address [address] [place] [address] Care Team Providers Care Automation Driver Name Role Phone Maddy Romano MD Primary Care Provider [phone] Active Problems Problem Noted Date Diagnosed Date [...] Screening with HPV 1990 Mammogram Screening 2000 Pneumococcal Vaccine: 50+ Years (3 of 3 - PCV20 or PCV21) 05/26/2020 05/26/2015, 03/24/2014 DTaP, Tdap and Td Vaccines (2 - Td or Tdap) 03/24/2024 03/24/2014 COVID-19 Vaccine (3 - season) 2024 09/11/2021, 10/17/2020 RSV Immunization or 60+ Years (1 - 1-dose 75+ series) 12/18/2035 Zoster Vaccines Completed 02/17/2020, 05/29/2019 Hepatitis C Completed 01/05/2023, 0502/2023, 01/05/2023, Additional history exists Meningococcal B Vaccine Aged Out No l onger eligible based on patient's age to complete this topic Meningococcal Vaccine Aged Out No leo clifton eligible based on patient's age to complete this topic RSV Immunizations Under 20 Months Aged Out No longer eligible based on patient's age to complete this topic Insurance [facility] Care Teams Automation Driver Relationship Specialty Start Date End Date Maddy Romano MD [address] [place] [address] PCP - General INTERNAL MEDICINE 01/16/23
--- OUTSIDE RECORDS SUMMARY | 2024-12-15 12:32 | XMS_ITS | Encounter Summary ---
Author Organization [facility] Address [address] [place] [address] Care Team Providers Care Medical Program Specialist Name Role Phone Maddy Romano MD Primary Care Provider [phone] Manas Ibarra MD Unavailable Zion Barton MD Unavailable Molina Charles MD Unavailable [phone] Karuna Maria OT Unavailable Unavaila Renu Paul NP Unavailable [phone] Eladio Mcrae MD Unavailable [phone] Marcy Schroeder RN Unavailable [phone] Chelsea Barker RN Unavailable Unavail able [...] unspecified hepatic cirrhosis type (HCC) [K74.60] Procedures ME EGD REMOVAL TUMOR POLYP/OTHER LESION SNARE TECH ME ESOPHAGOGASTRODUODENOSCOPY TRANSORAL DIAGNOSTIC ESOPHAGOGASTRODUODENOSCOPY Referral ID Status Reason Start Date Expiration Date Visits Re quested Visits Authorized [id number] 1 1 Encounter Details Date Type Department Care Team (Late st Contact Info) Description 12/14/2024 9:15 AM CDT - 12/14/2024 9:45 AM CDT Surgery [facility] Endoscopy [address] [place] [address] Mercy Adler MD PhD [address] [place] [address] ESOPHAGOGASTRODUODENOSCOPY Surgery Details Date/Time Status Location OR Service Patient Class Case Class Case Type Trauma Case? 12/14/2024 9:15 AM Posted [facility]COPY Endo 03 Gastroenterology Outpatient Elective Panel 1 Procedure LRB Anes Op Region Wound Class Comments ESOPHAGOGASTRODUODENOSCOPY N/A Choice N/A Surgeon Surgeon Role Service Panel Mercy Adler MD PhD Primary Gastr oenterology 1 documented in this encounter Social History Tobacco Use Types Packs/Day Years Used Date Smoking Tobacco: Former Cigarettes 0.5 51 1 970 - 2020 Smokeless Tobacco: Never [facility] [employer] Answer Date Recorded In the past 12 months has Part[employer] electric, gas, oil, or water [employer] threatened to shut off services in your [...] often do you attend chur ch or mandaen services? Never 10/05/2024 Do you belong to any clubs o r organizations such as muslim groups, unions, fraternal or athletic groups, or [...] in the past [address] 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 You may eat and drink at . IV: If the IV site swells or bleeds, please apply direct pressure for 5 minutes. If the site becomes red, you may apply warm, moist compresses to the site. Please see a healthcare professional if youhave concerns about your IV site. Pain/Bleeding: You have had {POST BIOPSY/DILITATION:29013113} performed during the procedure. You may expect a little bleeding from the site. Within the next 48 hours, if the bleeding becomes excessive or is accompanied by abdominal or chest pain, please call your physician immediately. If you are on aspirin or NSAIDS (non-steroidal anti-inflammatory drugs) then you can resume {Endo ASA/NSAIDS:53273672}. If no follow-up appointment is required, you [...] (eight) hours 02/05/2023 blood-glucose meter,continuous (Dexcom G7 Shift Supervisor Melting) misc Use as directed. 1 each 10/02/2024 blood-glucose sensor (Dexcom G6 Sensor) deviceIndications:T ype 2 diabetes mellitus with stage 3a chronic kidney disease, unspecified whether correction insulin use (HCC) Will use 1 sensor every 10 days. 1 box = 3 sensors. 3 each 5 08/19/2024 blood-glucose sensor (Dexcom G7 Sensor) device Use as directed. Change sensor every 10 days. 3 each 11 10/19/2024 blood-glucose transmitter (Dexcom G6 Transmitter) deviceIndications:T ype 2 diabetes mellitus without complication, unspecified whether ad terminal makeup operator insulin use (HCC) Will use 1 transmitter [...] Ultra-Fine Mini Pen Needle) 31 gauge x 16 needleIndications:T ype 2 diabetes mellitus without complication, unspecified whether ad terminal makeup operator insulin use (HCC) USE TO INJECT INSULIN SIX TIMES PER DAY 200 each 11 09/23/2024 pen needle, diabetic (Pen Needle) 32 gauge x 5/32 needle Use as directed once a day. 100 each 10/02/2024 spironolactone (ALDACTONE) 100 mg tablet Take 1 tablet (100 mg total) by mouth daily 30 tablet 11 10/02/2024 10/02/19 26 thiamine (VITAMIN B-1) 100 [...] 2016 RLL, 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, radiation oncology ERNESTINE [...] Edgard Bruno MD blood-glucose meter,continuous (Dexcom G7 Shift Supervisor Melting) misc Use as directed. 10/02/24 Edgard Bruno MD [...] Patient not taking: Reported on 12/03/2024 10/08/24 ProviderBrian MD GaviLyte-G 236-22.74-6.74 -5.86 gram solution FOLLOW INSTRUCTIONS SENT TO YOU. DRINK HALF OF THE NIGHT BEFORE THE TEST AT 6PM. DRINK THE OTHER HALF THE MORNING OF TEST 4 HOURS BEFORE LEAVING. Patient not taking: Reported on 12/03/2024 10/07/24 Provider, MD Brian glucagon 1 mg kit Inject 1 mg [...] (100 mg total) by mouth daily 06/22/24 Provider,MD Brian tirzepatide (Mounjaro) 2.5 mg/0.5 mL pen injector [...] Female Attending MD: Mercy Adler M.D. Room: [facility] 03 Note Status: Finalized [...] and oxygen saturations were monitored continuously. The [id number] was introduced through the mouth, and advanced [...] patient, (and by phone - directed to order picker location).Understanding expressed, questions answered.(No signatures due to CoVid19 protocol) Tolerating po fluids. * Pre-Procedure Instructions - Vania Russell RN - 12/03/2024 4:44 PM CDT You have an appointment for an upper endoscopy [facility] 12/14/24. Arrival time 8:15 am for 9:15 am procedure Our address is: [id number] [place] [address] [place] [address] Do not eat or drink after midnight 12/13/24, do not eat or drink prior to procedure 12/14/24-but pleasefollow Dr Adler's office instruction Call your pecan gatherer for insulin instruction and to see if [...] to reschedule please call the gastroenterology office [phone] Thank you documented in this encounter Plan [...] Female Attending MD: Mercy Adler M.D. Room: [facility] 03 Note Status: Finalized Procedure: Upper GI endoscopy Indications: Cirrhosis rule out esophageal varices Providers: Mercy Adler M.D. Referring MD: Rajneesh S. Romano, M.D. Medicines: Monitored Anesthesia Care Complications: No immediate complications. Estimated Blood Loss: Estimated blood loss: none. Procedure: Pre-Anesthesia Assessment: - Immediately prior to administration ofmedications, the patient was re-assessed for adequacy to receive sedatives. After obtaining informed consent, the endoscope was passed under direct vision. Throughout theprocedure, the patient's blood pressure, pulse, and oxygen saturations were monitored continuously. The [id number] was introduced through the mouth, and advanced [...] - [facility] - [facility] to [facility] [...] was last revised on 2014. POC Performer [id number] [facility] POC Device Number [id number] CHARISSA [facility] Blood 12/14/2024 8:56 AM CDT 12/14/2024 8:56 AM CDT Mercy Adler MD PhD LAB POCT ORDER RAVEN - DEVICE Final Result [facility]ISSA [facility] [address] [facility] Department [place] [address] documented in this encounter Visit Diagnoses Diagnosis Esophageal varices without bleeding (HCC) Esophageal varices without mention of bleeding Cirrhosis of liver without ascites (HCC) Esophageal varices without bleeding, unspecified esophageal varices type (HCC) Cirrhosis of liver without ascites, unspecified hepatic cirrhosis type (HCC) documented in this encounter Admitting Diagnoses [...] infusion 125 mL/hr, intravenous, Continuous, Starting on 12/14/24 at 0915, Pre-Op, Indications: sigmoidoscopy/colonoscopy patientsIndications:sigmoid oscopy/colonoscopy [...] 0854 (New Bag - Prov ider: Kira Sheridan, RN)0940 (Stopped - Provider: Pattie Kong RN) [...] 12/14/2024 documented in this encounter Care Teams Medical Program Specialist Relationship Specialty Start Date End Date Maddy Romano MD [address] [place] [address] PCP - General 09/28/16 Manas Ibarra MD [address] [place], [place] [address] Referring Physician Thoracic Surgery 11/05/18 Zion Barton MD [address] [place] [address] Radiation Oncologist Radiation Oncology 05/05/19 Molina Charles MD [address] [facility] [address] [place] [address] Referring Physician Transplant Hepatology 12/15/20 Karuna Maria, OT Occupational Therapist Occupational Therapy 09/20/22 Renu Treviño NP [address] [facility] [address] [place] [address] Nurse Practitioner Radiation Oncology 11/08/22 Eladio Mcrae MD [address] [place] [address] Referring Physician Obstetrics and Gynecology 11/15/22 Marcy Schroeder, RN [address] [place] [address] Scagliola Mechanic 04/27/24 Chelsea Barker, adult protective caseworkerScagliola Mechanic 11/13/24 documented as of this encounter
--- OUTSIDE RECORDS SUMMARY | 2024-12-15 12:32 | XMS_ITS | Encounter Summary ---
Author Organization [facility] Address [address] [place] [address] Phone Care Team Providers Care Housemaid Name Role Phone Maddy Romano MD Primary Care Provider Astrid Haq NP Unavailable Manas Ibarra MD Unavailable Zion Barton MD Unavailable [phone] Molina Charles MD Unavailable [phone] Inés Lemus RN Unavailable [phone] Karuna Maria OT Unavailable Unavaila Renu Paul NP Unavailable Eladio Mcrae MD Unavailable Marcy Schroeder RN Unavailable [phone] Briana Poe RN Unavailable [phone] Marina Le RN Unavailable Chelsea Barker RN [...] on file 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 Gender Identity Female 11/15/2021 2:30 AM [...] COVID: Suspected 09/24/2024 09/24/2024 09/24/2024 3:13 PM GOLD FRAME ASSEMBLER documented as of this encounter Care Teams Housemaid Relationship Specialty Start Date End Date Maddy Romano MD [address] [place] [address] PCP - General 09/28/16 Astrid Haq NP [address] [place] [address] Nurse Practitioner Radiation Oncology 11/05/18 11/07/22 Manas Ibarra MD [address] [place] [address] Referring Physician Thoracic Surgery 11/05/18 Zion Barton MD [address] [place] [address] Radiation Oncologist Radiation Oncology 05/05/19 Molina Charles MD [address] [facility] [address] [place] [address] Referring Physician Transplant Hepatology 12/15/20 Inés Lemus, TYRA [address] [facility] [address] [place] [address] Automatic Wheel Line Operator 10/31/21 5 Karuna Maria OT Occupational Therapist Occupational Therapy 09/20/22 Renu Treviño, NAGI [address] [facility] [address] [place] [address] Nurse Practitioner Radiation Oncology 11/08/22 Eladio Mcrae MD [address] [place], [place] [address] Referring Physician Obstetrics and Gynecology 11/15/22 Marcy Schroeder, RN [address] [place] [address] Automatic Wheel Line Operator 04/27/24 Briana Poe, TYRA [address] [facility] [address] [place] [address] SHOP Outpatient Public Information Director 04/30/24 05/28/24 Marina Le RN [address] [facility] [address] [place] [address] SHOP Outpatient Public Information Director 10/05/24 10/26/24 Chelsea Barker, shop girlAutomatic Wheel Line Operator 11/13/24 documented as of this encounter
--- OUTSIDE RECORDS SUMMARY | 2024-12-15 12:32 | XMS_ITS | Encounter Summary ---
Author Organization [facility] Address [address] [place] [address] Care Team Providers Care Flat Surfacer Jewel Name Role Phone Maddy Romano MD Primary Care Provider [phone] Manas Ibarra MD Unavailable Zion Barton MD Unavailable [phone] Molina Charles MD Unavailable [phone] Karuna Maria OT Unavailable Unavaila Renu Paul NP Unavailable [phone] Eladio Mcrae MD Unavailable [phone] Marcy Schroeder RN Unavailable [phone] Chelsea Barker RN Unavailable Unavail able Encounter Details Date Type Department Care Team (Late st Contact Info) Description 12/14/[address] [facility] Transplant Liver [address] [facility] [address] [phone] [place] [address] Chelsea Barker, RN Social History Tobacco Use Types Packs/Day Years Used Date Smoking Tobacco: Former Cigarettes 0.5 51 1 970 - 2020 Smokeless Tobacco: Never [facility] Utilities Answer Date Recorded In the past [...] place to sleep or slept in a snf (including now)? No 12/31/2022 Housing Stability Vital Sign Answer Terrance e Recorded In the last 12 months, was t here a time when you were not able to pay the mortgage or rent on time? No 10/05/2024 In the past 12 months, how m any times have you moved where you were living? 0 10/05/2024 At any time in the past 12 m [facility], were you homeless or living in a snf (including now)? No 10/05/2024 Personal Safety Answer Date Recorded Have you ever been in or are you currently in a harmful physical or emotional relationship or is someone making you feel afraid or unsafe? 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 of this encounter Functional Status documented as of this encounter Miscellaneous Notes * Telephone Encounter - Chelsea Barker RN - 12/14/2024 12:36 PM CDT Lab order for CMP faxed to [facility] documented in this encounter Plan of Treatment Scheduled Procedures Name Priority Associated Diagnoses Date/Ti me COLONOSCOPY Routine adult health maintenance LYONS (nonalcoholic steatohepatitis) documented as of this encounter Visit Diagnoses Not on filedocumented in this encounter Care Teams Flat Surfacer Jewel Relationship Specialty Start Date End Date Maddy Romano MD [address] [place] [address] PCP - General 09/28/16 Manas Ibarra MD [address] [place] [address] Referring Physician Thoracic Surgery 11/05/18 Zion Barton MD [address] [place] [address] Radiation Oncologist Radiation Oncology 05/05/19 Molina Charles MD 1 [facility] [address] [place] [address] Referring Physician Transplant Hepatology 12/15/20 Karuna Maria, OT Occupational Therapist Occupational Therapy 09/20/22 Renu Treviño NP [address] [facility] [address] [place] [address] Nurse Practitioner Radiation Oncology 11/08/22 Eladio Mcrae MD [address] [place], [place] [address] Referring Physician Obstetrics and Gynecology 11/15/22 Marcy Schroeder, RN [address] [place] [address] Gang Hemstitching Machine Operator 04/27/24 Chelsea Barker, explosive ordnance managerGang Hemstitching Machine Operator 11/13/24 documented as of this encounter
--- OUTSIDE RECORDS SUMMARY | 2024-12-15 12:33 | XMS_ITS | Referral Summary ---
Author Organization [facility] Address 1 [place] [address] Care Team Providers Care Retrieval Specialist Name Role Phone Maddy Romano MD Primary Care Provider Manas Ibarra MD Unavailable Zion Barton MD Unavailable Molina Charles MD Unavailable [phone] Karuna Maria OT Unavailable Unavaila Renu Paul NP Unavailable [phone] Eladio Mcrae MD Unavailable [phone] Marcy Schroeder RN Unavailable [phone] Chelsea Barker RN Unavailable Unavail able Encounters Date Type Department Care Team Description 12/15/19 Telephone [facility] Transplant Liver [address] [facility] [address] MailAvogyop [phone] [place] [address] Chelsea Barker, TYRA 12/15/19 Results Follow-Up [facility] Transplant Liver [address] [facility] 3405 Mailstop [phone] [place] [address] Chelsea Barker, TYRA 12/15/19 Telephone [facility] Transplant Liver [address] [facility] 3401 Mailstop [phone] [place] [address] Chelsea Barker, TYRA 12/15/19 9:15 AM CDT - 12/15/19 9:45 AM CDT Surgery [facility] Endoscopy [address] [place] [address] Mercy Adler MD PhD ESOPHAGOGASTRODUODENOSCOPY 12/15/19 9:11 AM CDT Anesthesia Event [facility] Endoscopy [address] [place] [address] Ezequiel Waldron MD 12/15/19 8:08 AM CDT - 12/15/19 10:14 AM CDT Hospital Encounter [facility] Endoscopy [address] [place] [address] Mercy Adler MD PhD Discharge Disposition: Discharge to home or self care 12/09/19 Telephone [facility] Transplant Liver [address] [address] Mailst [phone] [place] [address] Chelsea Barker RN 12/05/19 Results Follow-Up [facility] Gastroenter[facility]1 [facility] Advanced Medicine 12th [place] [address] [place] [address] Molina Charles MD 12/05/19 3:20 PM CDT Lab [facility] ([facility]) [facility] [place] [address] 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) 12/02/19 Telephone [facility] Gastroenterology [address] [facility] Advanced Medicine 12th [place] [address] [place] [address] Marina Estrella LPN GI Preprocedure 11/28/19 Telephone [facility] [address] [facility] Advanced Medicine 12th [place] [address] [place] [address] RexKimberley cancel procedure 11/27/19 Telephone [facility] Transplant Liver [address] [facility] [address] Mailstop [phone] [place] [address] Chelsea Barker RN 11/26/19 10:25 AM CDT Lab [facility] ([facility]) [address] [place] [address] 11/26/19 10:10 AM CDT Lab [facility] ([facility]) [address] [place] [address] Type 2 diabetes mellitus wit h stage 3a chronic kidney disease, with long-term current use of insulin (HCC); 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) 11/26/19 9:00 AM CDT Office Visit [facility] Gasteroenterology [address] [facility] 12th [place] [address] [place] [address] Taiwo Vázquez MD Portosystemic encephalopathy (HCC) (Primary Dx); 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 1 [facility] 1st [place] [address] Timothy Pardo MD ESRD (end stage renal disease) (HCC) 04/10/20 25 2:00 PM CDT - 11/20/19 25 11:59 PM CDT Hospital Encounter [facility] [address] [place] [address] Discharge Disposition: Discharge to home or self care 11/12/19 25 Plan of Care Documentation [facility] Speech Therapy 1 [place] [address] 11/12/19 11:30 AM CDT Therapy [facility] Speech Therapy 1 [place] [address] Oropharyngeal dysphagia (Primary Dx) 11/12/19 10:53 AM CDT - 11/12/19 25 11:59 PM CDT Hospital Encounter [facility] Radiology 1 [place] [address] Dysphagia, oropharyngeal Discharge Disposition: Discharge to home or self care 10/28/19 25 SHOP/CHAP Subsequent Outreach [facility] OP CASE MANAGEMENT 1 [place] [address] Marina Le, RN 10/21/19 25 SHOP/CHAP Subsequent Outreach [facility] OP CASE MANAGEMENT 1 [place] [address] Marina Le, RN 10/21/19 25 Documentation [facility] Transplant Liver [address] [facility] [address] Mailstop [phone] [place] [address] Celsa Vargas 10/21/19 25 Telephone [facility] Transplant Liver [address] [facility] [address] Mailstop [phone] [place] [address] Inés Lemus, TYRA 10/16/19 25 SHOP/CHAP Subsequent Outreach [facility] OP CASE MANAGEMENT 1 [place] [address] Marina Le, RN 10/15/19 25 12:30 PM STRING WINDING MACHINE OPERATOR Office Visit [facility] Endocrinology Metabolism and Lipid [address] [place] [address] 13th [place] [address] [place] [address] Sylvain Aguilera MD Type 2 diabetes mellitus without complication, unspecified whether jail insulin use (HCC) (Primary Dx) 10/14/19 Telephone [facility] Transplant Liver [address] [facility] 3401 Mailstop [phone] [place] [address] Inés Lemus RN 10/14/19 11:40 AM STRING WINDING MACHINE OPERATOR Lab [facility] Advanced [facility] ([facility]) [address] [place] [address] VELASCO (nonalcoholic steatohepatitis) 10/14/19 Telephone [facility] Transplant Liver [address] [facility] [address] [place] [address]-[address] [place] [address] Celsa Vargas 10/14/19 Documentation [facility] Transplant Liver [address] [facility] [address] [place], [place] [address]op -00-3 [place] [address] Celsa Vargas 10/14/19 Telephone [facility] Transplant Liver [address] [place] [address] [place] [address] [place] [address] Celsa Vargas 10/14/19 8:30 AM STRING WINDING MACHINE OPERATOR Office Visit [facility] Nephrology [address] [place] [address] 5th [place] [address] [place] [address] Hypertension, unspecified ty pe (Primary Dx); Stage 3b chronic kidney disease (HCC); Anemia in stage 3b chronic kidney disease (HCC) 10/13/19 11:45 AM STRING WINDING MACHINE OPERATOR - 10/13/19 11:59 PM STRING WINDING MACHINE OPERATOR Hospital Encounter [facility] [address] [place], [place] [id number] ESRD (end stage renal diseas e) (HCC) Discharge Disposition: Discharge to home or self care 10/13/19 Telephone [facility] Transplant Liver [address] [facility] 340 Mailstop [phone] [place] [address] Inés Lemus, TYRA 10/13/19 SHOP/CHAP Subsequent Outreach [facility] OP CASE MANAGEMENT 1 [place] [address] Marina Le, RN 10/09/19 Telephone [facility] Transplant Liver [address] [facility] [address] Mailstop 45-29-131 [place] [address] Inés Lemus, TYRA 10/09/19 Documentation [facility] Gastroenterology [address] [place] [address] [address]th [place] [address] [place] [address] Alexandra Issa RN 10/08/19 4:00 PM STRING WINDING MACHINE OPERATOR Office Visit [facility] Gastroenterology [address] [place] [address] Medical Office Building [address], [address] [place] [address] Taiwo Vázquez MD Class 3 severe obesity due to excess calories with serious comorbidity and body mass index (BMI) of 40.0 to 44.9 in adult (HCC) (Primary Dx); 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); Hepatic encephalopathy (HCC); Cirrhosis of liver without ascites, unspecified hepatic cirrhosis type (HCC) 10/06/19 Telephone [facility] G[facility]enter[facility] [address] [place] [address] 12th [place] [address] [place] [address] Meagan Maravilla GI PRE PROCEDURE ASSESSMENT (COLON) 10/06/19 SHOP/CHAP Subsequent Outreach [facility] OP CASE MANAGEMENT 1 [place] [address] Marina Le, TYRA 10/05/19 Telephone [facility] Transplant Liver [address] [facility] [address] Mailstop [phone] [place] [address] Inés Lemus, TYRA 10/05/19 Results Follow-Up [facility] Transplant Liver [address] [facility] [address] Mailstop 93-04-247 [place] [address] Inés LemusTYRA 10/05/19 Telephone [facility] Transplant Liver [address] [facility] [address] Mailop [phone] [place] [address] Inés Lemus, TYRA 10/05/19 SHOP/CHAP Initial Outreach [facility] OP CASE MANAGEMENT 1 [place] [address] Marina Le RN 10/05/19 SHOP/CHAP Initial Eligibility Review [facility] OP CASE MANAGEMENT 1 [place] [address] Marina Le RN 09/24/19 12:08 PM STRING WINDING MACHINE OPERATOR - 10/02/19 5:03 PM STRING WINDING MACHINE OPERATOR [address] [address] Paxton Hawk MD Mudd, Peter Shine MD PhD Lexis, MD Sandra Michaels Alvin, MD Stephenson, Molina Moreno MD Gastrointestinal hemorrhage, unspecified gastrointestinal hemorrhage type (Primary Dx); Hepatic encephalopathy (HCC); Stage 3b chronic kidney disease (HCC); Dysphagia, oropharyngeal; Physical debility Discharge Disposition: Discharge to home or self care 09/29/19 Documentation [facility] Transplant Liver [address] [place] [address] [address] Mailop 13-06-554 [place] [address] Chelsea Barker, TYRA 09/28/19 Documentation [facility] Transplant Liver [address] [place] [address] [address] Mailstop [phone] [place] [address] Chelsea Barker, TYRA 09/24/19 Telephone [facility] Transplant Liver [address] [place] [address] [address] Mailop 22-51-0 [place] [address] Inés Lemus, TYRA 09/24/19 Telephone [facility] Gastroenterology [address] [place] [address] Medical Office Building [address], [address] [place] [address] Gregory Del Cid MD 09/21/19 10:00 AM STRING WINDING MACHINE OPERATOR - 09/21/19 11:59 PM STRING WINDING MACHINE OPERATOR Hospital Encounter [place] [id number] ESRD (end stage renal diseas e) (HCC) Discharge Disposition: Discharge to home or self care from Last 3 Months Allergies Active Allergy [...] day 60 tablet 11 12/12/19 24 Active ondansetron (ZOFRAN) 4 mg tablet [...] stage 3a chronic kidney disease, unspecified whether jail insulin use (HCC) Will use 1 sensor every 10 days. 1 box = 3 sensors. 3 each 5 08/19/19 25 Active blood-glucose transmitter (Dexcom G6 Transmitter) deviceIndications: Type 2 diabetes mellitus without complication, unspecified whether termite control service representative insulin use (HCC) Will use 1 transmitter every 90 days 1 each 1 08/19/19 25 Active pen needle, diabetic (BD Ultra-Fine Mini Pen Needle) 31 gauge x 3/16 needleIndications: Type 2 diabetes mellitus without complication, unspecified whether termite control service representative insulin use (HCC) USE TO INJECT INSULIN [...] 10/02/19 25 Active blood-glucose meter,continuous (Dexcom G7 Quartz Cutter) misc Use as directed. 1 each 10/02/19 25 Active glucagon 1 mg kit Inject 1 mg into the muscle once as directed by provider for low blood sugar. 1 kit 10/02/19 25 Active spironolactone (ALDACTONE) 100 mg tablet Take 1 tablet (100 mg total) by mouth daily 30 tablet 10/02/19 25 026 Active atorvastatin (LIPITOR) 40 [...] 10 days. 3 each 10/20/19 25 Active lactulose solution 10 gram/15mLIndicatio ns:Portosystemic encephalopathy (HCC) Take 30 mL (20 g total) by mouth 3 (three) times a day 3785 mL 3 11/26/19 25 025 Active fluconazole (DIFLUCAN) 100 mg tablet Take 1 tablet (100 mg total) by mouth daily 10/08/19 25 Active lactulose solution 10 gram/15mL Take 30 mL (20 g total) by mouth 3 (three) times a day 2700 mL 3 04/29/20 24 025 Discontin ued(Reord er) GaviLyte-G 236-22.74-6.74 -5.86 gram solution 10/07/19 25 025 Discontin ued(Stop Taking at Discharge ) Active Problems Problem Noted Date Diagnosed Date Esophageal varices without bleeding 12/01/2024 Cirrhosis of liver without ascites 12/01/2024 Class 3 severe obesity due t o [...] outlined elsewhere. 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 12/29/2022 Assessment & Plan (03/06/2023 5:48 PM [...] 10/10/2022 Assessment & Plan (10/12/2022 12:20 PM STRING WINDING MACHINE OPERATOR): Episode of atrial flutter overnight with RVR up to 140s. Patient asymptomatic, normotensive. IV metoprolol X2 given to achieve rate control. [id number] vasc score of 3. TTE from 09/03 without valvular abnormalities. No new episodes today. Lytes within normal limits. - Continue athletic monitor - Continue home dose of metoprolol 25mg BID - Given that patient might be listed for transplant, hepatology would prefer to avoid apixaban. Lovenox is not ideal given her platelet count less than 100. Her INR is too high to consider warfarin. Anemia 10/05/2022 Assessment & Plan (10/11/2022 12:28 PM STRING WINDING MACHINE OPERATOR): - Hgb has down trended from [...] 10/05/2022 Assessment & Plan (10/11/2022 12:45 PM STRING WINDING MACHINE OPERATOR): -Continue home dose of metoprolol 25mg BID Hepatic encephalopathy 07/31/2022 Assessment & Plan (03/06/2023 5:49 PM CDT): Good control on current medical management. No changes indicated. Assessment & Plan (08/03/2022 1:05 PM STRING WINDING MACHINE OPERATOR): Pt with hx of VELASCO cirrhosis presenting with progressively worsening mental status over past several weeks. On initial examination patient was AAOx1, on subsequent exam she is now AAOx2 with appropriate responses. NH3 75. Unfortunately no safe area for bedside diagnostic paracentesis. Slurred speech and concerns for swallowing. NURSERY SCHOOL TEACHER completed swallow study and normal. Head CT: No acute intracranial abnormality. -Awaiting Liver MRI -Increased Lactulose to 4x daily (only 1 stool on 08/02) - Rifaximin and Lactulose (goal 3-5 bowel movements) - Fall precautions. - PT/OT: Home with assistance. Assessment & Plan (08/02/2022 2:34 PM STRING WINDING MACHINE OPERATOR): Pt with hx of VELASCO cirrhosis presenting with progressively worsening mental status over past several weeks. On initial examination patient was AAOx1, on subsequent exam she is now AAOx2 with appropriate responses. NH3 75. Unfortunately no safe area for bedside diagnostic paracentesis. Slurred speech and concerns for swallowing. NURSERY SCHOOL TEACHER completed swallow study and normal. Head CT: No acute intracranial abnormality. - Rifaximin and Lactulose (goal 3-5 bowel movements) - Fall precautions. - PT/OT: Home with assistance. - NURSERY SCHOOL TEACHER completed bedside swallow and Normal Assessment & Plan (08/01/2022 3:28 PM STRING WINDING MACHINE OPERATOR): Pt with hx of VELASCO cirrhosis presenting [...] concerns for swallowing. - Fall precautions. - NURSERY SCHOOL TEACHER/PT/OT Consults. Assessment & Plan (08/01/2022 4:16 AM STRING WINDING MACHINE OPERATOR): Pt with hx of VELASCO cirrhosis presenting [...] mellitus Assessment & Plan (10/12/2022 2:58 PM STRING WINDING MACHINE OPERATOR): Previously on dose reduced insulin regimen at [facility]SH 20u lantus, 7u tid lispro + ssi. - Her blood sugars were initially on the lower side (90-100) in setting of poor po intake and TR. Continue SSI only for now and will uptitrate as needed. - Continue Lantus 10u/daily + lispro 4TID Assessment & Plan (08/03/2022 1:09 PM STRING WINDING MACHINE OPERATOR): Home regimen of toujeo 42 units + SSI. -Lantus, Lispro TID AC and SSI -No Juice Diet -Consistent Carb+ 2gm NA diet. -CTM BGL Assessment & Plan (08/02/2022 2:38 PM STRING WINDING MACHINE OPERATOR): Home regimen of toujeo 42 units + SSI. -Lantus, Lispro TID AC and SSI -No Juice Diet -Consistent Carb+ 2gm NA diet. -CTM BGL Assessment & Plan (08/01/2022 3:26 PM STRING WINDING MACHINE OPERATOR): Home regimen of toujeo 42 units + SSI. Given TR and decreased PO intake, insulin regimen reduced to Lantus 20units. - Continue on 2g Na + DM2 diet - CTM BGL Assessment & Plan (08/01/2022 4:17 AM STRING WINDING MACHINE OPERATOR): Home regimen of toujeo 42 units + SSI Given TR and decreased PO intake, will dose reduce insulin regimen, 20units + SSIand uptitrate as needed Continue on 2g Na + DM2 diet Obstructive sleep apnea Resolved Problems Problem Noted Date Diagnosed Date Resolved Date Screening for colorectal cancer 10/06/2024 11/25/2024 Hypoxic ischemic encephalopa thy of , unspecified stage 09/24/2024 10/08/2024 Esophageal varices without bleeding 07/17/2024 11/25/2024 Cirrhosis of liver without ascites 07/15/2024 11/25/2024 Chronic liver failure without hepatic coma 04/20/2024 05/29/2024 Lymphedema 01/16/2023 07/15/2024 Other ascites 10/22/2022 07/15/2024 Overview (10/22/2022): Added automatically from request for surgery [id number] Volume overload 10/06/2022 05/29/2024 Assessment & Plan (10/10/2022 1:09 PM STRING WINDING MACHINE OPERATOR): In the setting of VELASCO cirrhosis. Diuretics [...] (08/22/2022): Added automatically from request for surgery [id number] Portal vein thrombosis 08/01/202208/22 Assessment & Plan (08/03/2022 1:09 PM STRING WINDING MACHINE OPERATOR): -Apixaban 2.5mg BID Assessment & Plan (08/02/2022 2:39 PM STRING WINDING MACHINE OPERATOR): -Apixaban 2.5mg BID Assessment & Plan (08/01/2022 3:27 PM STRING WINDING MACHINE OPERATOR): -Apixaban 2.5mg BID Assessment & Plan (08/01/2022 4:17 AM STRING WINDING MACHINE OPERATOR): Continue home apixaban VELASCO (nonalcoholic steatohepatitis) 11/02/2021 07/15/2024 Abnormal mammogram of right breast 11/02/2020 08/22/2022 Preop cardiovascular exam 09/23/2019 Overview (09/23/2019): Added automatically from request for surgery [id number] Colon cancer screening 04/21/201908/22 Overview (04/21/2019): Added automatically from request for surgery [id number] Esophageal varices without bleeding (CMS/HCC) 04/21/20 19 08/22/2022 Overview (04/21/2019): Added automatically from request for surgery [id number] Steatosis of liver 05/20/2017 terminal operator current use of ant icoagulant [...] Influenza, Trivalent, Preser vative Free, Intramuscular 05/29/2013 NxThera (J&J) SARS-CoV-2 Vaccination 10/17/2020 Pneumococcal Conjugate PCV 13 05/26/2015 Pneumococcal Polysaccharide PPV23 03/24/2014 RSV Vaccine, Pref, Recombina nt, Subunit, Adjuvanted, PF, IM (Arexvy) 12/18/2023 Tdap 03/24/2014 ZOSTER Recombinant 02/17/2020,05/29/2019 Social History Tobacco Use Types Packs/Day Years Used Date Smoking Tobacco: Former Cigarettes 0.5 51 1 970 - 2020 Smokeless Tobacco: Never Tobacco Cessation:Counseling Given: Not Answered [facility] [employer] Answer Date Recorded In the past 12 months has th e [employer], gas, oil, or water [employer] threatened to shut off services in your [...] attend chur ch or restorationist services? Never 10/05/2024 Do you belong to any clubs o r organizations such as mormon groups, unions, fraternal or athletic groups, or [...] any time in the past 12 m [facility], were you homeless or living in [...] on file Legal Sex Female 8:22 AM STRING WINDING MACHINE OPERATOR Gender Identity Female 11/15/2021 2:30 [...] Mass Index 41.35 12/14/2024 8:40 AM CDT Plan of Treatment Scheduled Procedures Name Priority Associated Diagnoses Date/Ti me COLONOSCOPY Routine adult health maintenance VELASCO (nonalcoholic steatohepatitis) Procedures Procedure Name Priority Date/Time Associated Diagnosis Comments ESOPHAGOGASTRODUODENOSCOPY 12/14 9:11 AM CDT Esophageal varices without bleeding, unspecified esophageal varices type (HCC) Cirrhosis of liver without ascites, unspecified hepatic cirrhosis type (HCC) EGD 12/14/2024 8:57 AM CDT POCT GLUCOSE DEVICE Routine 12/14/2024 8:56 AM CDT EGFR Routine 12/04/2024 1:50 PM CDT 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) DIFFERENTIAL AUTO Routine 12/04/2024 1:50 PM CDT 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) COMPREHENSIVE METABOLIC PANEL Routine 1:50 PM CDT 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) PROTIME-INR Routine 12/04/2024 1:50 PM CDT 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) CBC WITH AUTO DIFFERENTIAL Routine 12/04 1:50 PM CDT 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) BILIRUBIN, DIRECT Routine 12/04/2024 1:50 PM CDT 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) EGFR Routine 11/25/2024 9:40 AM CDT 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) DIFFERENTIAL AUTO Routine 11/25/2024 9:40 AM CDT 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) HEMOGLOBIN A1C Routine 11/25/2024 9:40 AM CDT Type 2 diabetes mellitus with stage 3a chronic kidney disease, with long-term current use of insulin (HCC) [id number], TUMOR MARKER Routine 11/25/2024 9:40 AM CDT 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) PROTIME-INR Routine 11/25/2024 9:40 AM CDT 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) BILIRUBIN, DIRECT Routine 11/25/2024 9:40 AM CDT 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) COMPREHENSIVE METABOLIC PANEL Routine 9:40 AM CDT 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) CBC WITH AUTO DIFFERENTIAL Routine 11/25 9:40 AM CDT 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) HLA ANTIBODY SCREEN - SAB (CLASS I AND CLASS II) Routine 11/19/2024 2:00 PM CDT ESRD (end stage renal disease) (HCC) HLA ANTIBODY SCREEN BY PRA O R SAB PER SCHEDULE (CLASS I AND CLASS II) Routine 11/19/2024 2:00 PM CDT ESRD (end stage renal disease) (HCC) FL MODIFIED BARIUM SWALLOW W VIDEO Schedule Routine, Read Routine (OP Routine) 11/11/2024 11:46 AM CDT Dysphagia, oropharyngeal POCT GLUCOSE [id number] Routine 10/14/2024 12:20 PM STRING WINDING MACHINE OPERATOR Type 2 diabetes mellitus without complication, unspecified whether termite control service representative insulin use (HCC) EGFR Routine 10/13/2024 10:40 AM STRING WINDING MACHINE OPERATOR VELASCO (nonalcoholic steatohepatitis) IMMATURE PLATELET FRACTION Routine 10/13 10:40 AM STRING WINDING MACHINE OPERATOR VELASCO (nonalcoholic steatohepatitis) DIFFERENTIAL AUTO Routine 10/13/2024 10:40 AM STRING WINDING MACHINE OPERATOR VELASCO (nonalcoholic steatohepatitis) CBC WITH AUTO DIFFERENTIAL Routine 10/13 10:40 AM STRING WINDING MACHINE OPERATOR VELASCO (nonalcoholic steatohepatitis) PROTIME-INR Routine 10/13/2024 10:40 AM STRING WINDING MACHINE OPERATOR VELASCO (nonalcoholic steatohepatitis) COMPREHENSIVE METABOLIC PANEL Routine 10:40 AM STRING WINDING MACHINE OPERATOR VELASCO (nonalcoholic steatohepatitis) HLA ANTIBODY SCREEN BY PRA O R SAB PER SCHEDULE (CLASS I AND CLASS II) Routine 10/12/2024 11:45 AM STRING WINDING MACHINE OPERATOR ESRD (end stage renal disease) (HCC) PROTIME-INR Routine 10/05/2024 COMPREHENSIVE METABOLIC PANEL Routine 10/05/2024 POCT GLUCOSE DEVICE Routine 10/02/2024 4:21 PM STRING WINDING MACHINE OPERATOR NURSERY SCHOOL TEACHER EVALUATE AND TREAT FIBEROPTIC ENDOSCOPIC SWALLOW Routine 10/02/2024 1:07 PM STRING WINDING MACHINE OPERATOR POCT GLUCOSE DEVICE Routine 10/02/2024 11:33 AM STRING WINDING MACHINE OPERATOR POCT GLUCOSE DEVICE Routine 10/02/2024 7:14 AM STRING WINDING MACHINE OPERATOR POCT GLUCOSE DEVICE Routine 10/02/2024 4:19 AM STRING WINDING MACHINE OPERATOR EGFR Routine 10/01/2024 9:18 PM STRING WINDING MACHINE OPERATOR MAGNESIUM Routine 10/01/2024 9:18 PM STRING WINDING MACHINE OPERATOR PHOSPHORUS Routine 10/01/2024 9:18 PM STRING WINDING MACHINE OPERATOR PROTIME-INR Routine 10/01/2024 9:18 PM STRING WINDING MACHINE OPERATOR COMPREHENSIVE METABOLIC PANEL Routine 9:18 PM STRING WINDING MACHINE OPERATOR POCT GLUCOSE DEVICE Routine 10/01/2024 7:35 PM STRING WINDING MACHINE OPERATOR POCT GLUCOSE DEVICE Routine 10/01/2024 7:34 PM STRING WINDING MACHINE OPERATOR POCT GLUCOSE DEVICE Routine 10/01/2024 5:12 PM STRING WINDING MACHINE OPERATOR POCT GLUCOSE DEVICE Routine 10/01/2024 11:45 AM STRING WINDING MACHINE OPERATOR POCT GLUCOSE DEVICE Routine 10/01/2024 7:45 AM STRING WINDING MACHINE OPERATOR EGFR Routine 09/30/2024 9:22 PM STRING WINDING MACHINE OPERATOR DIFFERENTIAL AUTO Timed 09/30/2024 9:22 PM STRING WINDING MACHINE OPERATOR VITAMIN D 25 HYDROXY Timed 09/30/2024 9:22 PM STRING WINDING MACHINE OPERATOR PTH Timed 09/30/2024 9:22 PM STRING WINDING MACHINE OPERATOR CBC WITH AUTO DIFFERENTIAL Timed 09/30 9:22 PM STRING WINDING MACHINE OPERATOR MAGNESIUM Routine 09/30/2024 9:22 PM STRING WINDING MACHINE OPERATOR PHOSPHORUS Routine 09/30/2024 9:22 PM STRING WINDING MACHINE OPERATOR PROTIME-INR Routine 09/30/2024 9:22 PM STRING WINDING MACHINE OPERATOR COMPREHENSIVE METABOLIC PANEL Routine 9:22 PM STRING WINDING MACHINE OPERATOR POCT GLUCOSE DEVICE Routine 09/30/2024 7:58 PM STRING WINDING MACHINE OPERATOR POCT GLUCOSE DEVICE Routine 09/30/2024 4:20 PM STRING WINDING MACHINE OPERATOR POCT GLUCOSE DEVICE Routine 09/30/2024 11:43 AM STRING WINDING MACHINE OPERATOR POCT GLUCOSE DEVICE Routine 09/30/2024 7:54 AM STRING WINDING MACHINE OPERATOR POCT GLUCOSE DEVICE Routine 09/30/2024 7:36 AM STRING WINDING MACHINE OPERATOR POCT GLUCOSE DEVICE Routine 09/30/2024 12:28 AM STRING WINDING MACHINE OPERATOR EGFR Routine 09/29/2024 8:49 PM STRING WINDING MACHINE OPERATOR MAGNESIUM Routine 09/29/2024 8:49 PM STRING WINDING MACHINE OPERATOR PHOSPHORUS Routine 09/29/2024 8:49 PM STRING WINDING MACHINE OPERATOR PROTIME-INR Routine 09/29/2024 8:49 PM STRING WINDING MACHINE OPERATOR COMPREHENSIVE METABOLIC PANEL Routine 8:49 PM STRING WINDING MACHINE OPERATOR POCT GLUCOSE DEVICE Routine 09/29/2024 8:08 PM STRING WINDING MACHINE OPERATOR POCT GLUCOSE DEVICE Routine 09/29/2024 4:50 PM STRING WINDING MACHINE OPERATOR POCT GLUCOSE DEVICE Routine 09/29/2024 11:35 AM STRING WINDING MACHINE OPERATOR [employer] TE[employer]ER EVALUATE AND TREAT FIBEROPTIC ENDOSCOPIC SWALLOW Routine 09/29/2024 10:55 AM STRING WINDING MACHINE OPERATOR N[employer]CHO[employer] TEACHER EVALUATE AND TREAT VIDEOFLUOROSCOPIC SWALLOW STUDY Routine 09/29/2024 10:55 AM STRING WINDING MACHINE OPERATOR POCT GLUCOSE DEVICE Routine 09/29/2024 7:34 AM STRING WINDING MACHINE OPERATOR POCT GLUCOSE DEVICE Routine 09/29/2024 4:49 AM STRING WINDING MACHINE OPERATOR POCT GLUCOSE DEVICE Routine 09/29/2024 12:25 AM STRING WINDING MACHINE OPERATOR HEMOGLOBIN A1C Routine 09/28/2024 9:17 PM STRING WINDING MACHINE OPERATOR EGFR Routine 09/28/2024 9:17 PM STRING WINDING MACHINE OPERATOR DIFFERENTIAL AUTO Routine 09/28/2024 9:17 PM STRING WINDING MACHINE OPERATOR MAGNESIUM Routine 09/28/2024 9:17 PM STRING WINDING MACHINE OPERATOR PHOSPHORUS Routine 09/28/2024 9:17 PM STRING WINDING MACHINE OPERATOR PROTIME-INR Routine 09/28/2024 9:17 PM STRING WINDING MACHINE OPERATOR CBC WITH AUTO DIFFERENTIAL Routine 09/28 9:17 PM STRING WINDING MACHINE OPERATOR COMPREHENSIVE METABOLIC PANEL Routine 9:17 PM STRING WINDING MACHINE OPERATOR POCT GLUCOSE DEVICE Routine 09/28/2024 7:57 PM STRING WINDING MACHINE OPERATOR POCT GLUCOSE DEVICE Routine 09/28/2024 4:31 PM STRING WINDING MACHINE OPERATOR POCT GLUCOSE DEVICE Routine 09/28/2024 11:23 AM STRING WINDING MACHINE OPERATOR POCT GLUCOSE DEVICE Routine 09/28/2024 8:01 AM STRING WINDING MACHINE OPERATOR POCT GLUCOSE DEVICE Routine 09/28/2024 4:52 AM STRING WINDING MACHINE OPERATOR POCT GLUCOSE DEVICE Routine 09/28/2024 12:29 AM STRING WINDING MACHINE OPERATOR EGFR Routine 09/28/2024 12:06 AM STRING WINDING MACHINE OPERATOR DIFFERENTIAL AUTO Routine 09/28/2024 12:06 AM STRING WINDING MACHINE OPERATOR MAGNESIUM Routine 09/28/2024 12:06 AM STRING WINDING MACHINE OPERATOR PHOSPHORUS Routine 09/28/2024 12:06 AM STRING WINDING MACHINE OPERATOR PROTIME-INR Routine 09/28/2024 12:06 AM STRING WINDING MACHINE OPERATOR CBC WITH AUTO DIFFERENTIAL Routine 09/28 12:06 AM STRING WINDING MACHINE OPERATOR COMPREHENSIVE METABOLIC PANEL Routine 12:06 AM STRING WINDING MACHINE OPERATOR POCT GLUCOSE DEVICE Routine 09/27/2024 11:55 PM STRING WINDING MACHINE OPERATOR POCT GLUCOSE DEVICE Routine 09/27/2024 8:03 PM STRING WINDING MACHINE OPERATOR POCT GLUCOSE DEVICE Routine 09/27/2024 4:26 PM STRING WINDING MACHINE OPERATOR POCT GLUCOSE DEVICE Routine 09/27/2024 11:49 AM STRING WINDING MACHINE OPERATOR POCT GLUCOSE DEVICE Routine 09/27/2024 8:05 AM STRING WINDING MACHINE OPERATOR POCT GLUCOSE DEVICE Routine 09/27/2024 4:24 AM STRING WINDING MACHINE OPERATOR POCT GLUCOSE DEVICE Routine 09/26/2024 11:20 PM STRING WINDING MACHINE OPERATOR EGFR Routine 09/26/2024 9:23 PM STRING WINDING MACHINE OPERATOR DIFFERENTIAL AUTO Routine 09/26/2024 9:23 PM STRING WINDING MACHINE OPERATOR MAGNESIUM Routine 09/26/2024 9:23 PM STRING WINDING MACHINE OPERATOR PHOSPHORUS Routine 09/26/2024 9:23 PM STRING WINDING MACHINE OPERATOR PROTIME-INR Routine 09/26/2024 9:23 PM STRING WINDING MACHINE OPERATOR CBC WITH AUTO DIFFERENTIAL Routine 09/26 9:23 PM STRING WINDING MACHINE OPERATOR COMPREHENSIVE METABOLIC PANEL Routine 9:23 PM STRING WINDING MACHINE OPERATOR POCT GLUCOSE DEVICE Routine 09/26/2024 7:53 PM STRING WINDING MACHINE OPERATOR POCT GLUCOSE DEVICE Routine 09/26/2024 4:37 PM STRING WINDING MACHINE OPERATOR EGFR Timed 09/26/2024 3:40 PM STRING WINDING MACHINE OPERATOR BASIC METABOLIC PANEL Timed 09/26/2024 3:40 PM STRING WINDING MACHINE OPERATOR POCT GLUCOSE DEVICE Routine 09/26/2024 11:16 AM STRING WINDING MACHINE OPERATOR POCT GLUCOSE DEVICE Routine 09/26/2024 9:40 AM STRING WINDING MACHINE OPERATOR LACTATE Timed 09/26/2024 8:16 AM STRING WINDING MACHINE OPERATOR POCT GLUCOSE DEVICE Routine 09/26/2024 7:45 AM STRING WINDING MACHINE OPERATOR POCT GLUCOSE DEVICE Routine 09/26/2024 4:26 AM STRING WINDING MACHINE OPERATOR CT ABDOMEN PELVIS WO CONTRAST IP Routine 3:17 AM STRING WINDING MACHINE OPERATOR LACTATE Timed 09/26/2024 12:44 AM STRING WINDING MACHINE OPERATOR POCT GLUCOSE DEVICE Routine 09/26/2024 12:08 AM STRING WINDING MACHINE OPERATOR EGFR Routine 09/25/2024 10:48 PM STRING WINDING MACHINE OPERATOR DIFFERENTIAL AUTO Routine 09/25/2024 10:48 PM STRING WINDING MACHINE OPERATOR PROTIME-INR Routine 09/25/2024 10:48 PM STRING WINDING MACHINE OPERATOR CBC WITH AUTO DIFFERENTIAL Routine 09/25 10:48 PM STRING WINDING MACHINE OPERATOR COMPREHENSIVE METABOLIC PANEL Routine 10:48 PM STRING WINDING MACHINE OPERATOR POCT GLUCOSE DEVICE Routine 09/25/2024 8:27 PM STRING WINDING MACHINE OPERATOR POCT GLUCOSE DEVICE Routine 09/25/2024 6:12 PM STRING WINDING MACHINE OPERATOR POCT GLUCOSE DEVICE Routine 09/25/2024 4:12 PM STRING WINDING MACHINE OPERATOR CRITICAL RESULT CALLBACK CHEMISTRY Timed 09/25/2024 3:24 PM STRING WINDING MACHINE OPERATOR LACTATE Timed 09/25/2024 3:24 PM STRING WINDING MACHINE OPERATOR SODIUM, URINE, RANDOM Routine 09/25/2024 3:24 PM STRING WINDING MACHINE OPERATOR URINALYSIS AND REFLEX TO MICROSCOPIC AND CULTURE STAT 09/25/2024 3:24 PM STRING WINDING MACHINE OPERATOR POCT GLUCOSE DEVICE Routine 09/25/2024 2:41 PM STRING WINDING MACHINE OPERATOR POCT GLUCOSE DEVICE Routine 09/25/2024 12:32 PM STRING WINDING MACHINE OPERATOR TROPONIN I HIGH-SENSITIVITY 4-HOUR Timed 09/25/2024 11:38 AM STRING WINDING MACHINE OPERATOR POCT GLUCOSE DEVICE Routine 09/25/2024 11:14 AM STRING WINDING MACHINE OPERATOR CRITICAL RESULT CALLBACK CARDIO CHEM Timed 09/25/2024 9:51 AM STRING WINDING MACHINE OPERATOR TROPONIN I HIGH-SENSITIVITY 2-HOUR Timed 09/25/2024 9:51 AM STRING WINDING MACHINE OPERATOR POCT GLUCOSE DEVICE Routine 09/25/2024 9:19 AM STRING WINDING MACHINE OPERATOR TROPONIN I HIGH-SENSITIVITY SERIES (BASELINE, 2HR, 4HR, 6HR) Timed 09/25/2024 7:44 AM STRING WINDING MACHINE OPERATOR LACTATE Timed 09/25/2024 7:44 AM STRING WINDING MACHINE OPERATOR POCT GLUCOSE DEVICE Routine 09/25/2024 7:32 AM STRING WINDING MACHINE OPERATOR POCT GLUCOSE DEVICE Routine 09/25/2024 4:12 AM STRING WINDING MACHINE OPERATOR POCT GLUCOSE DEVICE Routine 09/25/2024 2:52 AM STRING WINDING MACHINE OPERATOR XR ABDOMEN AP 1 VIEW IP Routine 09/25/2024 1:32 AM STRING WINDING MACHINE OPERATOR POCT GLUCOSE DEVICE Routine 09/25/2024 12:11 AM STRING WINDING MACHINE OPERATOR MAGNESIUM Routine 09/24/2024 11:56 PM STRING WINDING MACHINE OPERATOR EGFR Routine 09/24/2024 11:56 PM STRING WINDING MACHINE OPERATOR DIFFERENTIAL AUTO Routine 09/24/2024 11:56 PM STRING WINDING MACHINE OPERATOR PROTIME-INR Routine 09/24/2024 11:56 PM STRING WINDING MACHINE OPERATOR [id number], TUMOR MARKER Timed 09/24/2024 11:56 PM STRING WINDING MACHINE OPERATOR CBC WITH AUTO DIFFERENTIAL Routine 09/24 11:56 PM STRING WINDING MACHINE OPERATOR PHOSPHORUS Routine 09/24/2024 11:56 PM STRING WINDING MACHINE OPERATOR COMPREHENSIVE METABOLIC PANEL Routine 11:56 PM STRING WINDING MACHINE OPERATOR TROPONIN I HIGH-SENSITIVITY 6-HOUR Timed 09/24/2024 11:56 PM STRING WINDING MACHINE OPERATOR CRITICAL RESULT CALLBACK CHEMISTRY Timed 09/24/2024 11:55 PM STRING WINDING MACHINE OPERATOR SEPSIS LACTATE WITH REFLEX Timed 09/24 11:55 PM STRING WINDING MACHINE OPERATOR POCT GLUCOSE DEVICE Routine 09/24/2024 11:08 PM STRING WINDING MACHINE OPERATOR XR CHEST 1 VIEW ED Urgent/IP Urgent 09/24/2024 11:02 PM STRING WINDING MACHINE OPERATOR US LIVER DOPPLER COMPLETE IP Routine 2024 9:07 PM STRING WINDING MACHINE OPERATOR POCT GLUCOSE DEVICE Routine 09/24/2024 8:08 PM STRING WINDING MACHINE OPERATOR MD CRITICAL CARE ILL/INJURED PATIENT INIT 30-74 MIN Routine 09/24/2024 4:23 PM STRING WINDING MACHINE OPERATOR CRITICAL RESULT CALLBACK CHEMISTRY Timed 09/24/2024 2:37 PM STRING WINDING MACHINE OPERATOR SEPSIS LACTATE WITH REFLEX Timed 09/24 2:37 PM STRING WINDING MACHINE OPERATOR TROPONIN I HIGH-SENSITIVITY 2-HOUR Timed 09/24/2024 2:36 PM STRING WINDING MACHINE OPERATOR BLOOD CULTURE STAT 09/24/2024 2:36 PM STRING WINDING MACHINE OPERATOR RESPIRATORY PATHOGEN PANEL STAT 09/24 1:39 PM STRING WINDING MACHINE OPERATOR BLOOD CULTURE STAT 09/24/2024 1:39 PM STRING WINDING MACHINE OPERATOR XR CHEST 1 VIEW ED 09/24/2024 12:59 PM STRING WINDING MACHINE OPERATOR POCT KETONE, BLOOD Routine 09/24/2024 12:40 PM STRING WINDING MACHINE OPERATOR POCT GLUCOSE DEVICE Routine 09/24/2024 12:37 PM STRING WINDING MACHINE OPERATOR EGFR STAT 09/24/2024 12:35 PM STRING WINDING MACHINE OPERATOR DIFFERENTIAL AUTO STAT 09/24/2024 12:35 PM STRING WINDING MACHINE OPERATOR CRITICAL RESULT CALLBACK CHEMISTRY STAT 09/24/2024 12:35 PM STRING WINDING MACHINE OPERATOR AMMONIA STAT 09/24/2024 12:35 PM STRING WINDING MACHINE OPERATOR TYPE AND SCREEN STAT 09/24/2024 12:35 PM STRING WINDING MACHINE OPERATOR APTT STAT 09/24/2024 12:35 PM STRING WINDING MACHINE OPERATOR PROTIME-INR STAT 09/24/2024 12:35 PM STRING WINDING MACHINE OPERATOR TROPONIN I HIGH-SENSITIVITY SERIES (BASELINE, 2HR, 4HR, 6HR) STAT 09/24/2024 12:35 PM STRING WINDING MACHINE OPERATOR SEPSIS LACTATE WITH REFLEX STAT 09/24 12:35 PM STRING WINDING MACHINE OPERATOR HEPATIC FUNCTION PANEL STAT 12:35 PM STRING WINDING MACHINE OPERATOR BASIC METABOLIC PANEL STAT 09/24/2024 12:35 PM STRING WINDING MACHINE OPERATOR CBC WITH AUTO DIFFERENTIAL STAT 09/24 12:35 PM STRING WINDING MACHINE OPERATOR BLOOD GAS, VENOUS STAT 09/24/2024 12:35 PM STRING WINDING MACHINE OPERATOR NEURO CT OUTSIDE CONSULT Routine 025 12:33 PM STRING WINDING MACHINE OPERATOR XR TRANSFER OF OUTSIDE FILMS Routine 12:28 PM STRING WINDING MACHINE OPERATOR HLA ANTIBODY SCREEN - SAB (CLASS I AND CLASS II) Routine 09/21/2024 1:00 PM STRING WINDING MACHINE OPERATOR ESRD (end stage renal disease) (HCC) HLA ANTIBODY SCREEN BY PRA O R SAB PER SCHEDULE (CLASS I AND CLASS II) Routine 09/21/2024 1:00 PM STRING WINDING MACHINE OPERATOR ESRD (end stage renal disease) (HCC) PAP AND HIGH RISK HPV, REFLE X TO GENOTYPING Routine 04/28/2024 10:41 AM CDT SCREENING MAMMOGRAM BILATERA L W PAL IP Routine 04/27/2024 1:55 PM CDT LIPID PANEL Routine 04/22/2024 12:58 AM CDT HEPATITIS C ANTIBODY Routine 06/16/2023 6:09 AM STRING WINDING MACHINE OPERATOR COLONOSCOPY 05/30/2022 9:28 AM CDT ALBUMIN CREATININE RATIO, URINE Routine 03/01/2021 2:45 PM CDT Type 2 diabetes mellitus without complication, unspecified whether jail insulin use (HCC) from Last 3 Months or Most Recently Relevant to Health Maintenance Results * EGD (12/14/2024 8:57 AM CDT) Anatomical Region Laterality Modality Other Narrative Procedure Note Mercy Adler MD PhD - 12/14/2024 8:57 AM CDT ENDOSCOPY LAB Patient Name: Nael Cardoza Procedure Date: 12/14/2024 8:57 AM Date of : 1960 Admit Type: Outpatient Age: 63 Gender: Female Attending MD: Mercy Adler M.D. Room: [facility] ENDOSCOPY ROOM 03 Note Status: Finalized Procedure: [...] and oxygen saturations were monitored continuously. The [id number] was introduced through the mouth, and advanced [...] - Repeat upper endoscopy in 2 years forsurveillance. - Return to liver transplant clinic as previously scheduled. Attending Participation: I personally performed the entire procedure. Electronically signed by Mercy Adler MD Mercy Adler M.D. 12/14/2024 9:32:29 AM Number of Addenda: 0 Note Initiated On: 12/14/2024 8:57 AM us Mercy Adler MD PhD ENDOSCOPY PROC EDURES Final Result * POCT glucose (12/14/2024 8:56 AM CDT) [facility] Glucose, POC 131 70 - 199 mg/dL Comment: Interpretive Data Glucose is assumed to be non-fasting. Fasting Glucose reference ranges are: 0 - 150 years: 70 mg/dL - 99 mg/dL Current interpretive data was last revised on 2014. POC Performer [id number] CHARISSA DUNNEWCH POC Device Number [id number] CHARISSA DUNNEWCH Blood 12/14/2024 8:56 AM CDT 12/14/2024 8:56 AM CDT us Mercy Adler MD PhD LAB POCT ORDER RAVEN - DEVICE Final Result CHARISSA DUNNEWCH [id number] [facility]. Department [place] [address] * (ABNORMAL) eGFR (12/04/2024 1:50 PM CDT) Pathologist [facility] eGFR 39(L) >=60 mL/min/1. 73 m2 Comment: Interpretive Data [...] interpretive data was last reviewed 2021. Blood 12/04/2024 1:50 PM CDT 12/04/2024 3:19 PM CDT us Taiwo Vázquez MD LAB BLOOD ORDERABLES Fin al Result [facility] Department [place] [address] * (ABNORMAL) Differential, auto (12/04/2024 1:50 PM CDT) Pathologist [facility] Neutrophil abs 2.07 1.50 - 6.50 K/cumm Imm gran abs 0.01 0.00 - 0.10 K/cumm [facility] Lymphocyte abs 0.76(L) 0.80 - 3.30 K/cumm [facility] Monocyte abs 0.28 0.20 - 0.80 K/cumm [facility] Eosinophil abs 0.53(H) 0.00 - 0.50 K/cumm [facility] Basophil abs 0.02 0.00 - 0.10 K/cumm [facility] Neutrophil pct 56.5 % [facility] Comment: Interpretive Data Percent cell count reference ranges are not reported, since discordance with absolute values may lead to misinterpretation of CBC data. Current Interpretive Data was last revised on 2017. Imm gran pct 0.3 % [facility] Comment: Interpretive Data Percent cell count reference ranges are not reported, since discordance with absolute values may lead to misinterpretation of CBC data. Current Interpretive Data was last revised on 2017. Lymphocyte pct 20.7 % [facility] Comment: Interpretive Data Percent cell count reference ranges are not reported, since discordance with absolute values may lead to misinterpretation of CBC data. Current Interpretive Data was last revised on 2017. Monocyte pct 7.6 % [facility] Comment: Interpretive Data Percent cell count reference ranges are not reported, since discordance with absolute values may lead to misinterpretation of CBC data. Current Interpretive Data was last revised on 2017. Eosinophil pct 14.4 % [facility] Comment: Interpretive Data Percent cell count reference ranges are not reported, since discordance with absolute values may lead to misinterpretation of CBC data. Current Interpretive Data was last revised on 2017. Basophil pct 0.5 % [facility] Comment: Interpretive Data Percent cell count reference ranges are not reported, since discordance with absolute values may lead to misinterpretation of CBC data. Current Interpretive Data was last revised on 2017. Blood 12/04/2024 1:50 PM CDT 12/04/2024 3:08 PM CDT us Taiwo Vázquez MD LAB BLOOD ORDERABLES Fin al Result [facility] Department of Laboratories [place], [place] [id number] * (ABNORMAL) CBC with auto differential (12/04/2024 1:50 PM CDT) WBC 3.67(L) 3.80 - 9.90 K/cumm Hgb 10.4(L) 11.9 - 15.5 g/dL [facility] Hct 30.5(L) 35.6 - 45.5 % [facility] Plt 53(L) 150 - 400 K/cumm [facility] MPV 11.9 9.1 - 12.3 fL [facility] RBC 3.29(L) 3.90 - 5.20 M/cumm [facility] MCV 92.7 81.3 - 96.4 fL [facility] MCH 31.6 27.1 - 33.3 pg [facility] MCHC 34.1 32.3 - 35.7 g/dL [facility] RDW CV 14.6 11.1 - 14.9 % [facility] RDW SD 49.7(H) 35.7 - 48.1 fL [facility] NRBC abs 0.00 0.00 - 0.01 K/cumm [facility] Blood 12/04/2024 1:50 PM CDT 12/04/2024 3:08 PM CDT Taiwo Vázquez MD LAB BLOOD ORDERABLES Fin al Result [facility] Department [place] [address] * (ABNORMAL) Protime-INR (12/04/2024 1:50 PM CDT) PT 15.6(H) 9.7 - 13.0 sec INR 1.43(H) 0.90 - 1.20 [facility] Comment: Interpretive data Oral anticoagulant therapeutic ranges: Venous thromboembolism prophylaxis or treatment: 2.0-3.0 CARDIOLOGY Standard range: 2.0-3.0 High-intensity range: 2.5-3.5 Refer to indication-specific guidelines for appropriate target ranges for prosthetic heart valve replacement. Current interpretive data was last revised on 2019. Blood 12/04/2024 1:50 PM CDT 12/04/2024 3:08 PM CDT Taiwo Vázquez MD LAB BLOOD ORDERABLES Fin al Result Performing Organization Address City/[facility] Co de Phone Number [facility] Department [place] [address] * (ABNORMAL) Bilirubin, direct (12/04/2024 1:50 PM CDT) [facility] Bilirubin, direct 0.8(H) 0.1 - 0.3 mg/dL Blood 12/04/2024 1:50 PM CDT 12/04/2024 3:08 PM CDT Taiwo Vázquez MD LAB BLOOD ORDERABLES Fin al Result Performing Organization Address [facility] Co de Phone Number [facility] Department [place] [address] * (ABNORMAL) Comprehensive metabolic panel (12/04/2024 1:50 PM CDT) [facility] Sodium 145 135 - 145 mmol/L Potassium, pl 3.5 3.3 - 4.9 mmol/L [facility] Chloride 108 97 - 110 mmol/L [facility] CO2 33(H) 22 - 32 mmol/L [facility] Anion gap 4 2 - 15 mmol/L [facility] BUN 16 6 - 25 mg/dL [facility] Creatinine 1.49(H) 0.60 - 1.10 mg/dL [facility] Glucose 139 70 - 199 mg/dL [facility] Comment: Interpretive Data Fasting glucose >/= 126 [...] 2022. Calcium 8.9 8.5 - 10.3 mg/dL [facility] Bilirubin, total 1.8(H) 0.1 - 1.2 mg/dL [facility] Protein, pl 6.0(L) 6.5 - 8.5 g/dL [facility] Albumin 3.2(L) 3.5 - 5.0 g/dL [facility] Alk phos 98 40 - 130 Units/L [facility] ALT 17 7 - 45 Units/L [facility] AST 34 10 - 45 Units/L [facility] Blood 12/04/2024 1:50 PM CDT 12/04/2024 3:08 PM CDT us Taiwo Vázquez MD LAB BLOOD ORDERABLES Fin al Result [facility] Department [place] [address] * (ABNORMAL) eGFR (11/25/2024 9:40 AM CDT) eGFR 48(L) >=60 mL/min/1. 73 m2 Comment: Interpretive Data [...] interpretive data was last reviewed 2021. Blood 11/25/2024 9:40 AM CDT 11/25/2024 10:18 AM CDT us Taiwo Vázquez MD LAB BLOOD ORDERABLES Fin al Result [facility] Department [place] [address] * (ABNORMAL) Differential, auto (11/25/2024 9:40 AM CDT) Neutrophil abs 2.43 1.50 - 6.50 K/cumm Imm gran abs 0.00 0.00 - 0.10 K/cumm [facility] Lymphocyte abs 0.68(L) 0.80 - 3.30 K/cumm [facility] Monocyte abs 0.33 0.20 - 0.80 K/cumm [facility] Eosinophil abs 0.63(H) 0.00 - 0.50 K/cumm [facility] Basophil abs 0.02 0.00 - 0.10 K/cumm [facility] Neutrophil pct 59.4 % [facility] Comment: Interpretive Data Percent cell count reference ranges are not reported, since discordance with absolute values may lead to misinterpretation of CBC data. Current Interpretive Data was last revised on 2017. Imm gran pct 0.0 % [facility] Comment: Interpretive Data Percent cell count reference ranges are not reported, since discordance with absolute values may lead to misinterpretation of CBC data. Current Interpretive Data was last revised on 2017. Lymphocyte pct 16.6 % [facility] Comment: Interpretive Data Percent cell count reference ranges are not reported, since discordance with absolute values may lead to misinterpretation of CBC data. Current Interpretive Data was last revised on 2017. Monocyte pct 8.1 % [facility] Comment: Interpretive Data Percent cell count reference ranges are not reported, since discordance with absolute values may lead to misinterpretation of CBC data. Current Interpretive Data was last revised on 2017. Eosinophil pct 15.4 % [facility] Comment: Interpretive Data Percent cell count reference ranges are not reported, since discordance with absolute values may lead to misinterpretation of CBC data. Current Interpretive Data was last revised on 2017. Basophil pct 0.5 % [facility] Comment: Interpretive Data Percent cell count reference ranges are not reported, since discordance with absolute values may lead to misinterpretation of CBC data. Current Interpretive Data was last revised on 2017. Blood 11/25/2024 9:40 AM CDT 11/25/2024 10:10 AM CDT Taiwo Vázquez MD LAB BLOOD ORDERABLES Fin al Result Performing Organization Address [facility] Co de Phone Number [facility] [place] [address] * (ABNORMAL) CBC with auto differential (11/25/2024 9:40 AM CDT) WBC 4.09 3.80 - 9.90 K/cumm Hgb 9.9(L) 11.9 - 15.5 g/dL [facility] Hct 30.5(L) 35.6 - 45.5 % [facility] Plt 52(L) 150 - 400 K/cumm [facility] MPV 11.3 9.1 - 12.3 fL [facility] RBC 3.22(L) 3.90 - 5.20 M/cumm [facility] MCV 94.7 81.3 - 96.4 fL [facility] MCH 30.7 27.1 - 33.3 pg [facility] MCHC 32.5 32.3 - 35.7 g/dL [facility] RDW CV 14.9 11.1 - 14.9 % [facility] RDW SD 51.8(H) 35.7 - 48.1 fL [facility] NRBC abs 0.00 0.00 - 0.01 K/cumm [facility] Blood 11/25/2024 9:40 AM CDT 11/25/2024 10:10 AM CDT Taiwo Vázquez MD LAB BLOOD ORDERABLES Fin al Result Performing Organization Address City/[facility]/ZIP Co de Phone Number [place] [facility] [place] [address] * [id number], Tumor Marker (11/25/2024 9:40 AM CDT) alpha Fetoprotein <2.0 <=8.3 ng/mL Comment: Interpretive [...] 2018;[id number] Katya House et al. Clin Chem 2014;[id number]. Current interpretive data was last revised 2022. Blood 11/25/2024 9:40 AM CDT 11/25/2024 10:10 AM CDT us Taiwo Vázquez MD LAB BLOOD ORDERABLES Fin al Result Performing Organization Address City/State/[facility] Co de Phone Number [facility] Department [place] [address] * (ABNORMAL) Protime-INR (11/25/2024 9:40 AM CDT) Pathologist [facility] PT 15.7(H) 9.7 - 13.0 sec INR 1.44(H) 0.90 - 1.20 [facility] Comment: Interpretive data Oral anticoagulant therapeutic ranges: Venous thromboembolism prophylaxis or treatment: 2.0-3.0 CARDIOLOGY Standard range: 2.0-3.0 High-intensity range: 2.5-3.5 Refer to indication-specific guidelines for appropriate target ranges for prosthetic heart valve replacement. Current interpretive data was last revised on 2019. Blood 11/25/2024 9:40 AM CDT 11/25/2024 10:15 AM CDT Taiwo Vázquez MD LAB BLOOD ORDERABLES Fin al Result Performing Organization Address [facility] de Phone Number [facility] Department [place] [address] * Hemoglobin A1c (11/25/2024 9:40 AM CDT) Pathologist [facility] Hgb A1C 5.5 4.0 - 5.6 % Estimated Average Glucose 111 mg/dL [facility] Comment: The ADA recommends reporting an estimated Average Glucose (eAG) with all Hemoglobin A1c results using the equation derived from a study of 507 normal and diabetic adults. Minority populations were underrepresented and children were not included. (Diabetes Care 2020; 43(S1): S66-S76). The eAG is not equivalent to a fasting glucose. Blood 11/25/2024 9:40 AM CDT 11/25/2024 10:10 AM CDT Taiwo Vázquez MD LAB BLOOD ORDERABLES Fin al Result Performing Organization Address [facility] de Phone Number [facility] Department [place] [address] * (ABNORMAL) Bilirubin, direct (11/25/2024 9:40 AM CDT) [facility] Bilirubin, direct 0.9(H) 0.1 - 0.3 mg/dL Blood 11/25/2024 9:40 AM CDT 11/25/2024 10:10 AM CDT Taiwo Vázquez MD LAB BLOOD ORDERABLES Fin al Result Performing Organization Address [facility] de Phone Number [facility] [place] [address] * (ABNORMAL) Comprehensive metabolic panel (11/25/2024 9:40 AM CDT) Sodium 145 135 - 145 mmol/L Potassium, pl 3.4 3.3 - 4.9 mmol/L [facility] Chloride 108 97 - 110 mmol/L [facility] CO2 31 22 - 32 mmol/L [facility] Anion gap 6 2 - 15 mmol/L [facility] BUN 13 6 - 25 mg/dL [facility] Creatinine 1.26(H) 0.60 - 1.10 mg/dL [facility] Glucose 129 70 - 199 mg/dL [facility] Comment: Interpretive Data Fasting glucose >/= 126 [...] interpretive data was last revised 2022. Calcium 8.6 8.5 - 10.3 mg/dL [facility] Bilirubin, total 2.1(H) 0.1 - 1.2 mg/dL [facility] Protein, pl 5.8(L) 6.5 - 8.5 g/dL [facility] Albumin 3.1(L) 3.5 - 5.0 g/dL [facility] Alk phos 96 40 - 130 Units/L [facility] ALT 19 7 - 45 Units/L [facility] AST 30 10 - 45 Units/L [facility] Blood 11/25/2024 9:40 AM CDT 11/25/2024 10:10 AM CDT us Taiwo Vázquez MD LAB BLOOD ORDERABLES Fin al Result 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 Single Antigen Antibody Screen ordered. Timothy Pardo MD LAB BLOOD ORDERABL ES Final Result [facility] * HLA Antibody Screen - SAB (Class I and Class II) (11/19/2024 2:00 PM CDT) Class I Treatment EDTA HISTOT[facility] Class I Dilution 1:1 H[facility] Class I Tested Date 11/23/2024 HISTOTRAC Class I Result Negative HISTOTRAC Class I CPRA 0 HISTOTR[facility] Class I Low Risk A23; B44, B45, B47, B49, B51, B57, B58, B59, B63, B67 [facility]ISTOT[facility] Class II Treatment EDTA HISTOTRAC Class II Dilution 1:1 HISTOTRAC Class II Tested Date 11/23/2024 HISTOTRAC Class II Result Positive HISTOTRAC Class II CPRA 31 [facility] Class II Moderate Risk DR1; DPB1*01:01 HISTOTRAC Class II Low Risk DR1, DR10, DR12, DR52 [facility] 11/19/2024 2:00 PM CDT 11/24/2024 9:10 AM CDT Narrative HISTOTRAC - 11/24/2024 9:10 AM CDT Single-antigen HLA antibody screen is performed on serum samples using a method developed and validated by the [facility] HLA laboratory based on an FDA-approved IVD kit (LABScreen Single-Antigen, [employer], [place], [place]). All patient serum samples are pretreated with EDTA before the screen to prevent complement interference. Additional serum treatments, such as adsorption and DTT treatment, may be performed as indicated. Interpretive comments: Low risk: MFI [id number]. Moderate risk: MFI [id number]. Increased risk: MFI >/= 5000. The presence [...] antigens to avoid. Testing performed at the [facility], [address] [place] [address], 5th floor, [place], [address]. [facility] # [id number]. Rani Smith, Ph.D., Informatics Consultant, HLA Laboratory Aurelio Palafox M.D., Ph.D., Electric Drill Operator, HLA Laboratory Norma Talamantes, Ph.D., CLIA Electric Drill Operator, [facility] Current methodology and interpretive comments last revised on 09/06/2022. us Timothy Pardo MD LAB BLOOD ORDERABL ES Final Result HISTOTRAC * FL Modified Barium Swallow W Video [...] Jenkins M.D. Molina Dsouza MD IMG FLUOROSCOPY MD OCEDURES Final Result * POCT glucose (10/14/2024 12:20 PM STRING WINDING MACHINE OPERATOR) Glucose Blood, POC 235 mg/dL Blood 10/14/2024 12:2 0 PM STRING WINDING MACHINE OPERATOR Sylvain Aguilera MD POINT OF CARE TEST ORDERABLES Final Result * Immature platelet fraction (10/13/2024 10:40 AM STRING WINDING MACHINE OPERATOR) IPF 4.0 1.6 - 10.1 % Blood 10/13/2024 10:4 0 AM STRING WINDING MACHINE OPERATOR 10/13/2024 11:29 AM STRING WINDING MACHINE OPERATOR Molina Charles MD LAB BLOOD ORDERABLES Final Result Performing Organization Address City/[facility] Co de Phone Number [facility] [place] [address] * (ABNORMAL) eGFR (10/13/2024 10:40 AM STRING WINDING MACHINE OPERATOR) Pathologist [facility] eGFR 50(L) >=60 mL/min/1. 73 m2 Comment: [...] reviewed 2021. Blood 10/13/2024 10:4 0 AM STRING WINDING MACHINE OPERATOR 10/13/2024 11:41 AM STRING WINDING MACHINE OPERATOR us Molina Charles MD LAB BLOOD ORDERABLES Final Result Performing Organization Address City/[facility]/ZIP Co de Phone Number [facility] Department [place] [address] * (ABNORMAL) Differential, auto (10/13/2024 10:40 AM STRING WINDING MACHINE OPERATOR) Neutrophil abs 1.9 1.5 - 6.5 K/cumm Imm gran abs 0.0 0.0 - 0.1 K/cumm [facility] Lymphocyte abs 0.6(L) 0.8 - 3.3 K/cumm [facility] Monocyte abs 0.4 0.2 - 0.8 K/cumm [facility] Eosinophil abs 0.3 0.0 - 0.5 K/cumm [facility] Basophil abs 0.0 0.0 - 0.1 K/cumm [facility] Neutrophil pct 59.5 % [facility] Comment: Interpretive Data Percent cell count reference ranges are not reported, since discordance with absolute values may lead to misinterpretation of CBC data. Current Interpretive Data was last revised on 2017. Imm gran pct 0.3 % [facility] Comment: Interpretive Data Percent cell count reference ranges are not reported, since discordance with absolute values may lead to misinterpretation of CBC data. Current Interpretive Data was last revised on 2017. Lymphocyte pct 19.3 % [facility] Comment: Interpretive Data Percent cell count reference ranges are not reported, since discordance with absolute values may lead to misinterpretation of CBC data. Current Interpretive Data was last revised on 2017. Monocyte pct 11.9 % [facility] Comment: Interpretive Data Percent cell count reference ranges are not reported, since discordance with absolute values may lead to misinterpretation of CBC data. Current Interpretive Data was last revised on 2017. Eosinophil pct 8.4 % [facility] Comment: Interpretive Data Percent cell count reference ranges are not reported, since discordance with absolute values may lead to misinterpretation of CBC data. Current Interpretive Data was last revised on 2017. Basophil pct 0.6 % [facility] Comment: Interpretive Data Percent cell count reference ranges are not reported, since discordance with absolute values may lead to misinterpretation of CBC data. Current Interpretive Data was last revised on 2017. Blood 10/13/2024 10:4 0 AM STRING WINDING MACHINE OPERATOR 10/13/2024 11:21 AM STRING WINDING MACHINE OPERATOR Molina Charles MD LAB BLOOD ORDERABLES Final Result [facility] Department [place] [address] * (ABNORMAL) CBC with auto differential (10/13/2024 10:40 AM STRING WINDING MACHINE OPERATOR) WBC 3.1(L) 3.8 - 9.9 K/cumm Hgb 9.6(L) 11.9 - 15.5 g/dL [facility] Hct 29.5(L) 35.6 - 45.5 % [facility] Plt 46(C) 150 - 400 K/cumm [facility] Comment:No clot detected in sample. JOSEPH SOLER. Critical result called to and read back by JOSEPH SOLER on 10 13 2024 at 1157 to Beth Nuñez. MPV 11.6 9.1 - 12.3 fL [facility] RBC 3.02(L) 3.90 - 5.20 M/cumm [facility] MCV 97.7(H) 81.3 - 96.4 fL [facility] MCH 31.8 27.1 - 33.3 pg [facility] MCHC 32.5 32.3 - 35.7 g/dL [facility] RDW CV 15.6(H) 11.1 - 14.9 % [facility] RDW SD 55.7(H) 35.7 - 48.1 fL [facility] NRBC abs 0.00 0.00 - 0.01 K/cumm [facility] Blood 10/13/2024 10:4 0 AM STRING WINDING MACHINE OPERATOR 10/13/2024 11:21 AM STRING WINDING MACHINE OPERATOR Molina Charles MD LAB BLOOD ORDERABLES Final Result [facility] Department [place] [address] * (ABNORMAL) Protime-INR (10/13/2024 10:40 AM STRING WINDING MACHINE OPERATOR) Pathologist [facility] PT 15.5(H) 9.7 - 13.0 sec INR 1.42(H) 0.90 - 1.20 [facility] Comment: Interpretive data Oral anticoagulant therapeutic ranges: Venous thromboembolism prophylaxis or treatment: 2.0-3.0 CARDIOLOGY Standard range: 2.0-3.0 High-intensity range: 2.5-3.5 Refer to indication-specific guidelines for appropriate target ranges for prosthetic heart valve replacement. Current interpretive data was last revised on 2019. Blood 10/13/2024 10:4 0 AM STRING WINDING MACHINE OPERATOR 10/13/2024 11:21 AM STRING WINDING MACHINE OPERATOR Molina Charles MD LAB BLOOD ORDERABLES Final Result [facility] Department [place] [address] * (ABNORMAL) Comprehensive metabolic panel (10/13/2024 10:40 AM STRING WINDING MACHINE OPERATOR) Pathologist [facility] Sodium 139 135 - 145 mmol/L Potassium, pl 4.2 3.3 - 4.9 mmol/L [facility] Chloride 101 97 - 110 mmol/L [facility] CO2 29 22 - 32 mmol/L [facility] Anion gap 9 2 - 15 mmol/L [facility] BUN 18 6 - 25 mg/dL [facility] Creatinine 1.22(H) 0.60 - 1.10 mg/dL [facility] Glucose 292(H) 70 - 199 mg/dL [facility] Comment: Interpretive Data Fasting glucose >/= 126 [...] Calcium 9.2 8.5 - 10.3 mg/dL [facility] Bilirubin, total 2.5(H) 0.1 - 1.2 mg/dL [facility] Protein, pl 5.9(L) 6.5 - 8.5 g/dL [facility] Albumin 3.4(L) 3.5 - 5.0 g/dL [facility] Alk phos 91 40 - 130 Units/L [facility] ALT 33 7 - 45 Units/L [facility] AST 40 10 - 45 Units/L [facility] Blood 10/13/2024 10:4 0 AM STRING WINDING MACHINE OPERATOR 10/13/2024 11:21 AM STRING WINDING MACHINE OPERATOR Molina Charles MD LAB BLOOD ORDERABLES Final Result Performing Organization Address [facility] Co de Phone Number [facility] Department [place] [address] * HLA Antibody Screen by PRA or SAB per Schedule (Class I and Class II) (10/12/2024 11:45 AM STRING WINDING MACHINE OPERATOR) Blood 10/12/2024 11:4 5 AM STRING WINDING MACHINE OPERATOR Narrative HISTOTRAC - STRING WINDING MACHINE OPERATOR Sample received in lab and stored. No testing performed at this time. Timothy Pardo MD LAB BLOOD ORDERABL ES Final Result Performing Organization Address [facility] de Phone Number [facility] * (ABNORMAL) Protime-INR (10/05/2024) SCRIBED PT 15.1(A) 9.50 - 12.1 sec TXP NO LAB FOUND SCRIBED INR 1.4(A) 0.9 - 1.1 sec TXP NO LAB FOUND Blood 10/05/2024 Brian Biggs MD LAB BLOOD ORDERABLES Edit ed Result - Final Performing Organization Address [facility] Co de Phone Number TXP NO [...] * (ABNORMAL) POCT glucose (10/02/2024 4:21 PM STRING WINDING MACHINE OPERATOR) Glucose, POC 407(H) 70 - 199 mg/dL Comment:Glu2: RN/ Notified Glucose comment 1 Glu2: RN/ Notified [facility] Blood 10/02/2024 4:21 PM STRING WINDING MACHINE OPERATOR 10/02/2024 4:21 PM STRING WINDING MACHINE OPERATOR us Molina Dsouza MD LAB POCT ORDERABLE S - DEVICE Final Result [facility] One [facility] Department [place] [address] * NURSERY SCHOOL TEACHER Evaluate and Treat (FEES) (10/02/2024 1:07 PM STRING WINDING MACHINE OPERATOR) Narrative MARCIA - 10/02/2024 1:07 PM STRING WINDING MACHINE OPERATOR Sondra Dumont SLP 10/02/2024 3:22 PM Speech-Language Pathology: Flexible Endoscopic Evaluation of Swallowing (FEES) HPI/PMH HPI/PMH: 63 y.o. F [facility] and CKD currently listed for a simultaneous liver-kidney transplant (SLK), HTN, T2DM, atrial flutter, and ERNESTINE who presented to [facility] 09/24 as an OSH transfer for AMS. Pt was reportedly at baseline until 09/24 when EMS was called to her home as patient was found confused by her . Pt was initially brought to OSH ED, transferred to [facility] ED as she is an [...] diet/thin liquid General Information Nael Cardoza 10/02/24 NURSERY SCHOOL TEACHER Received On: 10/02/24 General Observations: Pt seen [...] deficits Secretions: Minimal Consistencies Administered: Thin liquids, [place] thick liquids, Honey thick liquids, Purees, Solids Thin Liquids: Laryngeal Penetration: Present Aspiration Present: Yes Timing: Before, During Amount: Moderate Response to aspiration: None Cough: Non-productive Unsuccessful Modifications: Chin tuck, Cough, Repeat swallow Penetration Aspiration Scale-Thin: 8-Material enters the airway, passes below the vocal folds and no effort is made to eject Independence Scale-Vallecular Residue-Thin Liquids: Moderate Independence Scale-Pyriform Sinus Residue-Thin Liquids: Mild [place] Thickened Liquids: Laryngeal Penetration: Present Aspiration Present: Yes Timing: Before, During Amount: Trace Response to aspiration: None Unsuccessful Modifications: Repeat swallow, Cough, Chin tuck Penetration Aspiration Scale-[place]: 8-Material enters the airway, passes below the vocal folds and no effort is made to eject Independence Scale-Vallecular Residue-[place] Thickened Liquids: Mild Independence Scale-Pyriform Sinus Residue-[place] Thickened Liquids: None Honey Thickened Liquids: Laryngeal Penetration: None Aspiration Present: No Penetration Aspiration Scale-Honey: 1-Material does not enter airway Zari Scale-Vallecular Residue-Honey Thickened Liquids: None Independence Scale-Pyriform Sinus Residue-Honey Thickened Liquids: None Purees: Laryngeal Penetration: None Aspiration Present: No Penetration Aspiration Scale-Puree: 1-Material does not enter airway Zari Scale-Vallecular Residue-Puree: None Independence Scale-Pyriform Sinus Residue-Puree: Trace Solids: Laryngeal Penetration: None Aspiration Present: No Successful Modifications: Repeat swallow Penetration Aspiration Scale-Solids: 1-Material does not enter airway Independence Scale-Vallecular Residue-Solids: Mild Zari Scale-Pyriform Sinus Residue-Solids: None Dysphagia Outcome and Severity Scale: Dysphagia Outcomes and Severity Scale: 4 Mild/Moderate dysphagia Levels 1 & 2 on the ALEJANDRINA indicate need for nonoral nutrition. Treatment Treatment was not provided this date. Please reference care plan for treatment goals and details, if indicated. Plan [employer] TE[employer]ER Frequency of Services during current admission: 3-5x/wk [employer] TE[employer]ER Recommendation (Add'l Services): Inpatient Rehab Facility Next Visit Plan:treatment/therapy Additional Referrals: PT/OT Discharge Summary Statement If this is the last swallow therapy visit, this serves as the discharge summary. Molina Dsouza MD NURSERY SCHOOL TEACHER ORDERABLES Fi nal Result Performing Organization Address City/[facility] Co de Phone Number [facility] * (ABNORMAL) POCT glucose (10/02/2024 11:33 AM STRING WINDING MACHINE OPERATOR) Pathologist [facility] Glucose, POC 373(H) 70 - 199 mg/dL Comment:Glu2: RN/ Notified Glucose comment 1 Glu2: RN/MD Notified [facility] Blood 10/02/2024 11:3 3 AM STRING WINDING MACHINE OPERATOR 10/02/2024 11:33 AM STRING WINDING MACHINE OPERATOR Molina Dsouza MD LAB POCT ORDERABLE S - DEVICE Final Result Performing Organization Address [facility] Co de Phone Number [facility] [place] [address] * (ABNORMAL) POCT glucose (10/02/2024 7:14 AM STRING WINDING MACHINE OPERATOR) Glucose, POC 215(H) 70 - 199 mg/dL Comment:Glu2: RN/MD Notified Glucose comment 1 Glu2: RN/MD Notified [facility] Blood 10/02/2024 7:14 AM STRING WINDING MACHINE OPERATOR 10/02/2024 7:14 AM STRING WINDING MACHINE OPERATOR Molina Dsouza MD LAB POCT ORDERABLE S - DEVICE Final Result Performing Organization Address [facility] de Phone Number [facility] Department [place] [address] * POCT glucose (10/02/2024 4:19 AM STRING WINDING MACHINE OPERATOR) [facility] Glucose, POC 194 70 - 199 mg/dL Blood 10/02/2024 4:19 AM STRING WINDING MACHINE OPERATOR 10/02/2024 4:19 AM STRING WINDING MACHINE OPERATOR Molina Dsouza MD LAB POCT ORDERABLE S - DEVICE Final Result Performing Organization Address [facility] de Phone Number [facility] [place] [address] * (ABNORMAL) eGFR (10/01/2024 9:18 PM STRING WINDING MACHINE OPERATOR) [facility] eGFR 26(L) >=60 mL/min/1. 73 m2 Comment: [...] of Race in Diagnosing Kidney Disease, JASN 2021). The CKD-EPI equation should not be used for patients with unstable renal function and has not been validated in children and those over 70. Current interpretive data was last reviewed 2021. Blood 10/01/2024 9:18 PM STRING WINDING MACHINE OPERATOR 10/01/2024 10:11 PM STRING WINDING MACHINE OPERATOR Najma Pires MD LAB BLOOD ORDERABLES Final Result Performing Organization Address [facility] de Phone Number [facility] Department [place] [address] * (ABNORMAL) Protime-INR (10/01/2024 9:18 PM STRING WINDING MACHINE OPERATOR) PT 17.6(H) 9.7 - 13.0 sec INR 1.61(H) 0.90 - 1.20 [facility] Comment: Interpretive data Oral anticoagulant therapeutic ranges: Venous thromboembolism prophylaxis or treatment: 2.0-3.0 CARDIOLOGY Standard range: 2.0-3.0 High-intensity range: 2.5-3.5 Refer to indication-specific guidelines for appropriate target ranges for prosthetic heart valve replacement. Current interpretive data was last revised on 2019. Blood 10/01/2024 9:18 PM STRING WINDING MACHINE OPERATOR 10/01/2024 10:12 PM STRING WINDING MACHINE OPERATOR Stuart Flores MD LAB BLOOD ORDERABLES Final Resul t Performing Organization Address [facility] de Phone Number [facility] Department [place] [address] * Phosphorus (10/01/2024 9:18 PM STRING WINDING MACHINE OPERATOR) Phosphorus, pl 2.4 2.3 - 4.5 mg/dL Blood 10/01/2024 9:18 PM STRING WINDING MACHINE OPERATOR 10/01/2024 10:11 PM STRING WINDING MACHINE OPERATOR Stuart Flores MD LAB BLOOD ORDERABLES Final Resul t Performing Organization Address [facility]/ZIP Co de Phone Number [facility] Department [place] [address] * Magnesium (10/01/2024 9:18 PM STRING WINDING MACHINE OPERATOR) Pathologist [facility] Magnesium 2.1 1.4 - 2.5 mg/dL Blood 10/01/2024 9:18 PM STRING WINDING MACHINE OPERATOR 10/01/2024 10:11 PM STRING WINDING MACHINE OPERATOR us Stuart Flores MD LAB BLOOD ORDERABLES Final Resul t [facility] Department [place] [address] * (ABNORMAL) Comprehensive metabolic panel (10/01/2024 9:18 PM STRING WINDING MACHINE OPERATOR) [facility] Sodium 140 135 - 145 mmol/L Potassium, pl 3.5 3.3 - 4.9 mmol/L [facility] Chloride 97 97 - 110 mmol/L [facility] CO2 28 22 - 32 mmol/L [facility] Anion gap 15 2 - 15 mmol/L [facility] BUN 50(H) 6 - 25 mg/dL [facility] Creatinine 2.12(H) 0.60 - 1.10 mg/dL [facility] Glucose 315(H) 70 - 199 mg/dL [facility] Comment: Interpretive Data Fasting glucose >/= 126 [...] 2022. Calcium 10.2 8.5 - 10.3 mg/dL [facility] Bilirubin, total 4.0(H) 0.1 - 1.2 mg/dL [facility] Protein, pl 7.1 6.5 - 8.5 g/dL [facility] Albumin 4.6 3.5 - 5.0 g/dL [facility] Alk phos 70 40 - 130 Units/L [facility] ALT 28 7 - 45 Units/L [facility] AST 54(H) 10 - 45 Units/L [facility] Blood 10/01/2024 9:18 PM STRING WINDING MACHINE OPERATOR 10/01/2024 10:11 PM STRING WINDING MACHINE OPERATOR us Najma Pires MD LAB BLOOD ORDERABLES Final Result Performing Organization Address [facility] Co de Phone Number [facility] [place] [address] * (ABNORMAL) POCT glucose (10/01/2024 7:35 PM STRING WINDING MACHINE OPERATOR) Glucose, POC 295(H) 70 - 199 mg/dL Blood 10/01/2024 7:35 PM STRING WINDING MACHINE OPERATOR 10/01/2024 7:35 PM STRING WINDING MACHINE OPERATOR us Molina Dsouza MD LAB POCT ORDERABLE S - DEVICE Final Result Performing Organization Address [facility] Co de Phone Number [facility] [place] [address] * (ABNORMAL) POCT glucose (10/01/2024 7:34 PM STRING WINDING MACHINE OPERATOR) Glucose, POC 361(H) 70 - 199 mg/dL Blood 10/01/2024 7:34 PM STRING WINDING MACHINE OPERATOR 10/01/2024 7:34 PM STRING WINDING MACHINE OPERATOR Molina Dsouza MD LAB POCT ORDERABLE S - DEVICE Final Result Performing Organization Address [facility] Co de Phone Number [facility] [place] [address] * (ABNORMAL) POCT glucose (10/01/2024 5:12 PM STRING WINDING MACHINE OPERATOR) [facility] Signature Glucose, POC 281(H) 70 - 199 mg/dL Blood 10/01/2024 5:12 PM STRING WINDING MACHINE OPERATOR 10/01/2024 5:12 PM STRING WINDING MACHINE OPERATOR us Molina Dsouza MD LAB POCT ORDERABLE S - DEVICE Final Result Performing Organization Address [facility] de Phone Number [facility] [place] [address] * (ABNORMAL) POCT glucose (10/01/2024 11:45 AM STRING WINDING MACHINE OPERATOR) [facility] Glucose, POC 262(H) 70 - 199 mg/dL Blood 10/01/2024 11:4 5 AM STRING WINDING MACHINE OPERATOR 10/01/2024 11:45 AM STRING WINDING MACHINE OPERATOR Molina Dsouza MD LAB POCT ORDERABLE S - DEVICE Final Result Performing Organization Address [facility] de Phone Number [facility] [place] [address] * POCT glucose (10/01/2024 7:45 AM STRING WINDING MACHINE OPERATOR) [facility] Glucose, POC 176 70 - 199 mg/dL Blood 10/01/2024 7:45 AM STRING WINDING MACHINE OPERATOR 10/01/2024 7:45 AM STRING WINDING MACHINE OPERATOR Molina Dsouza MD LAB POCT ORDERABLE S - DEVICE Final Result Performing Organization Address [facility] de Phone Number [facility] [place] [address] * (ABNORMAL) eGFR (09/30/2024 9:22 PM STRING WINDING MACHINE OPERATOR) [facility] eGFR 23(L) >=60 mL/min/1. 73 m2 Comment: [...] last reviewed 2021. Blood 09/30/2024 9:22 PM STRING WINDING MACHINE OPERATOR 09/30/2024 11:32 PM STRING WINDING MACHINE OPERATOR Najma Pires MD LAB BLOOD ORDERABLES Final Result [facility] Department [place] [address] * (ABNORMAL) Differential, auto (09/30/2024 9:22 PM STRING WINDING MACHINE OPERATOR) Neutrophil abs 3.3 1.5 - 6.5 K/cumm Imm gran abs 0.0 0.0 - 0.1 K/cumm [facility] Lymphocyte abs 1.1 0.8 - 3.3 K/cumm [facility] Monocyte abs 0.7 0.2 - 0.8 K/cumm [facility] Eosinophil abs 0.7(H) 0.0 - 0.5 K/cumm [facility] Basophil abs 0.0 0.0 - 0.1 K/cumm [facility] Neutrophil pct 56.5 % [facility] Comment: Interpretive Data Percent cell count reference ranges are not reported, since discordance with absolute values may lead to misinterpretation of CBC data. Current Interpretive Data was last revised on 2017. Imm gran pct 0.5 % [facility] Comment: Interpretive Data Percent cell count reference ranges are not reported, since discordance with absolute values may lead to misinterpretation of CBC data. Current Interpretive Data was last revised on 2017. Lymphocyte pct 18.8 % [facility] Comment: Interpretive Data Percent cell count reference ranges are not reported, since discordance with absolute values may lead to misinterpretation of CBC data. Current Interpretive Data was last revised on 2017. Monocyte pct 11.7 % [facility] Comment: Interpretive Data Percent cell count reference ranges are not reported, since discordance with absolute values may lead to misinterpretation of CBC data. Current Interpretive Data was last revised on 2017. Eosinophil pct 12.0 % [facility] Comment: Interpretive Data Percent cell count reference ranges are not reported, since discordance with absolute values may lead to misinterpretation of CBC data. Current Interpretive Data was last revised on 2017. Basophil pct 0.5 % [facility] Comment: Interpretive Data Percent cell count reference ranges are not reported, since discordance with absolute values may lead to misinterpretation of CBC data. Current Interpretive Data was last revised on 2017. Blood 09/30/2024 9:22 PM STRING WINDING MACHINE OPERATOR 09/30/2024 11:33 PM STRING WINDING MACHINE OPERATOR us Molina Dsouza MD LAB BLOOD ORDERABL ES Final Result [facility] Department [place] [address] * (ABNORMAL) CBC with auto differential (09/30/2024 9:22 PM STRING WINDING MACHINE OPERATOR) WBC 5.9 3.8 - 9.9 K/cumm Hgb 11.7(L) 11.9 - 15.5 g/dL [facility] Hct 35.1(L) 35.6 - 45.5 % [facility] Plt 50(L) 150 - 400 K/cumm [facility] MPV 12.5(H) 9.1 - 12.3 fL [facility] RBC 3.67(L) 3.90 - 5.20 M/cumm [facility] MCV 95.6 81.3 - 96.4 fL [facility] MCH 31.9 27.1 - 33.3 pg [facility] MCHC 33.3 32.3 - 35.7 g/dL [facility] RDW CV 14.7 11.1 - 14.9 % [facility] RDW SD 50.5(H) 35.7 - 48.1 fL [facility] NRBC abs 0.00 0.00 - 0.01 K/cumm [facility] Blood 09/30/2024 9:22 PM STRING WINDING MACHINE OPERATOR 09/30/2024 11:33 PM STRING WINDING MACHINE OPERATOR Molina Dsouza MD LAB BLOOD ORDERABL ES Final Result Performing Organization Address [facility] Co de Phone Number [facility] Department [place] [address] * Vitamin D 25 hydroxy (09/30/2024 9:22 PM STRING WINDING MACHINE OPERATOR) Pathologist [facility] Vitamin D 25-OH 33 30 - 80 ng/mL Blood 09/30/2024 9:22 PM STRING WINDING MACHINE OPERATOR 09/30/2024 11:34 PM STRING WINDING MACHINE OPERATOR Molina Dsouza MD LAB BLOOD ORDERABL ES Final Result Performing Organization Address [facility] Co de Phone Number [facility] Department [place] [address] * (ABNORMAL) Protime-INR (09/30/2024 9:22 PM STRING WINDING MACHINE OPERATOR) PT 16.9(H) 9.7 - 13.0 sec INR 1.55(H) 0.90 - 1.20 [facility] Comment: Interpretive data Oral anticoagulant therapeutic ranges: Venous thromboembolism prophylaxis or treatment: 2.0-3.0 CARDIOLOGY Standard range: 2.0-3.0 High-intensity range: 2.5-3.5 Refer to indication-specific guidelines for appropriate target ranges for prosthetic heart valve replacement. Current interpretive data was last revised on 2019. Blood 09/30/2024 9:22 PM STRING WINDING MACHINE OPERATOR 09/30/2024 11:33 PM STRING WINDING MACHINE OPERATOR us Stuart Flores MD LAB BLOOD ORDERABLES Final Resul t Performing Organization Address [facility] de Phone Number [facility] [place] [address] * (ABNORMAL) Phosphorus (09/30/2024 9:22 PM STRING WINDING MACHINE OPERATOR) Phosphorus, pl 2.2(L) 2.3 - 4.5 mg/dL Blood 09/30/2024 9:22 PM STRING WINDING MACHINE OPERATOR 09/30/2024 11:32 PM STRING WINDING MACHINE OPERATOR us Stuart Flores MD LAB BLOOD ORDERABLES Final Resul t Performing Organization Address [facility] de Phone Number [facility] Department [place] [address] * PTH (09/30/2024 9:22 PM STRING WINDING MACHINE OPERATOR) PTH 27 15 - 65 pg/mL Blood 09/30/2024 9:22 PM STRING WINDING MACHINE OPERATOR 09/30/2024 11:34 PM STRING WINDING MACHINE OPERATOR us Molina Dsouza MD LAB BLOOD ORDERABL ES Final Result Performing Organization Address [facility] [place] [address] * Magnesium (09/30/2024 9:22 PM STRING WINDING MACHINE OPERATOR) Magnesium 2.5 1.4 - 2.5 mg/dL Blood 09/30/2024 9:22 PM STRING WINDING MACHINE OPERATOR 09/30/2024 11:32 PM STRING WINDING MACHINE OPERATOR us Stuart Flores MD LAB BLOOD ORDERABLES Final Resul t [facility] Department [place] [address] * (ABNORMAL) Comprehensive metabolic panel (09/30/2024 9:22 PM STRING WINDING MACHINE OPERATOR) Sodium 147(H) 135 - 145 mmol/L Potassium, pl 3.8 3.3 - 4.9 mmol/L [facility] Chloride 102 97 - 110 mmol/L [facility] CO2 31 22 - 32 mmol/L [facility] Anion gap 14 2 - 15 mmol/L [facility] BUN 46(H) 6 - 25 mg/dL [facility] Creatinine 2.31(H) 0.60 - 1.10 mg/dL [facility] Glucose 262(H) 70 - 199 mg/dL [facility] Comment: Interpretive Data Fasting glucose >/= 126 [...] 2022. Calcium 10.8(H) 8.5 - 10.3 mg/dL [facility] Bilirubin, total 3.7(H) 0.1 - 1.2 mg/dL [facility] Protein, pl 7.6 6.5 - 8.5 g/dL [facility] Albumin 5.2(H) 3.5 - 5.0 g/dL [facility] Alk phos 74 40 - 130 Units/L [facility] ALT 24 7 - 45 Units/L [facility] AST 45 10 - 45 Units/L [facility] Blood 09/30/2024 9:22 PM STRING WINDING MACHINE OPERATOR 09/30/2024 11:32 PM STRING WINDING MACHINE OPERATOR us Najma Pires MD LAB BLOOD ORDERABLES Final Result Performing Organization Address [facility] Co de Phone Number [facility] [place] [address] * (ABNORMAL) POCT glucose (09/30/2024 7:58 PM STRING WINDING MACHINE OPERATOR) Glucose, POC 277(H) 70 - 199 mg/dL Comment:Glu2: RN/MD Notified Glucose comment 1 Glu2: RN/MD Notified [facility] Blood 09/30/2024 7:58 PM STRING WINDING MACHINE OPERATOR 09/30/2024 7:58 PM STRING WINDING MACHINE OPERATOR us Molina Dsouza MD LAB POCT ORDERABLE S - DEVICE Final Result Performing Organization Address [facility] [place] [place] [address] * POCT glucose (09/30/2024 4:20 PM STRING WINDING MACHINE OPERATOR) Glucose, POC 183 70 - 199 mg/dL Blood 09/30/2024 4:20 PM STRING WINDING MACHINE OPERATOR 09/30/2024 4:20 PM STRING WINDING MACHINE OPERATOR us Molina Dsouza MD LAB POCT ORDERABLE S - DEVICE Final Result Performing Organization Address [facility] Co de Phone Number [facility] Department [place] [address] * POCT glucose (09/30/2024 11:43 AM STRING WINDING MACHINE OPERATOR) Glucose, POC 193 70 - 199 mg/dL Blood 09/30/2024 11:4 3 AM STRING WINDING MACHINE OPERATOR 09/30/2024 11:43 AM STRING WINDING MACHINE OPERATOR us Molina Dsouza MD LAB POCT ORDERABLE S - DEVICE Final Result Performing Organization Address [facility] Co de Phone Number [place] [address] * POCT glucose (09/30/2024 7:54 AM STRING WINDING MACHINE OPERATOR) Glucose, POC 171 70 - 199 mg/dL Blood 09/30/2024 7:54 AM STRING WINDING MACHINE OPERATOR 09/30/2024 7:54 AM STRING WINDING MACHINE OPERATOR us Molina Dsouza MD LAB POCT ORDERABLE S - DEVICE Final Result Performing Organization Address [facility] [place] [place] [address] * POCT glucose (09/30/2024 7:36 AM STRING WINDING MACHINE OPERATOR) Glucose, POC 170 70 - 199 mg/dL Blood 09/30/2024 7:36 AM STRING WINDING MACHINE OPERATOR 09/30/2024 7:36 AM STRING WINDING MACHINE OPERATOR us Molina Dsouza MD LAB POCT ORDERABLE S - DEVICE Final Result Performing Organization Address [facility] [place] [address] * POCT glucose (09/30/2024 12:28 AM STRING WINDING MACHINE OPERATOR) Glucose, POC 181 70 - 199 mg/dL Blood 09/30/2024 12:2 8 AM STRING WINDING MACHINE OPERATOR 09/30/2024 12:28 AM STRING WINDING MACHINE OPERATOR us oMlina Dsouza MD LAB POCT ORDERABLE S - DEVICE Final Result Performing Organization Address [facility] [place] [address] * (ABNORMAL) eGFR (09/29/2024 8:49 PM STRING WINDING MACHINE OPERATOR) [facility] Signature eGFR 22(L) >=60 mL/min/1. 73 m2 Comment: [...] last reviewed 2021. Blood 09/29/2024 8:49 PM STRING WINDING MACHINE OPERATOR 09/29/2024 10:02 PM STRING WINDING MACHINE OPERATOR us Najma Pires MD LAB BLOOD ORDERABLES Final Result [facility] Department [place] [address] * (ABNORMAL) Protime-INR (09/29/2024 8:49 PM STRING WINDING MACHINE OPERATOR) PT 16.0(H) 9.7 - 13.0 sec INR 1.47(H) 0.90 - 1.20 [facility] Comment: Interpretive data Oral anticoagulant therapeutic ranges: Venous thromboembolism prophylaxis or treatment: 2.0-3.0 CARDIOLOGY Standard range: 2.0-3.0 High-intensity range: 2.5-3.5 Refer to indication-specific guidelines for appropriate target ranges for prosthetic heart valve replacement. Current interpretive data was last revised on 2019. Blood 09/29/2024 8:49 PM STRING WINDING MACHINE OPERATOR 09/29/2024 10:00 PM STRING WINDING MACHINE OPERATOR us Stuart Flores MD LAB BLOOD ORDERABLES Final Resul t Performing Organization Address [facility] Co de Phone Number [facility] [place] [address] * (ABNORMAL) Phosphorus (09/29/2024 8:49 PM STRING WINDING MACHINE OPERATOR) Pathologist [facility] Phosphorus, pl 1.6(L) 2.3 - 4.5 mg/dL Blood 09/29/2024 8:49 PM STRING WINDING MACHINE OPERATOR 09/29/2024 10:02 PM STRING WINDING MACHINE OPERATOR us Stuart Flores MD LAB BLOOD ORDERABLES Final Resul t Performing Organization Address [facility] de Phone Number [facility] [place] [address] * (ABNORMAL) Magnesium (09/29/2024 8:49 PM STRING WINDING MACHINE OPERATOR) [facility] Magnesium 2.8(H) 1.4 - 2.5 mg/dL Blood 09/29/2024 8:49 PM STRING WINDING MACHINE OPERATOR 09/29/2024 10:02 PM STRING WINDING MACHINE OPERATOR us Stuart Flores MD LAB BLOOD ORDERABLES Final Resul t Performing Organization Address [facility] de Phone Number [facility] [place] [address] * (ABNORMAL) Comprehensive metabolic panel (09/29/2024 8:49 PM STRING WINDING MACHINE OPERATOR) [facility] Sodium 141 135 - 145 mmol/L Potassium, pl 3.5 3.3 - 4.9 mmol/L [facility] Chloride 100 97 - 110 mmol/L [facility] CO2 29 22 - 32 mmol/L [facility] Anion gap 12 2 - 15 mmol/L [facility] BUN 56(H) 6 - 25 mg/dL [facility] Creatinine 2.41(H) 0.60 - 1.10 mg/dL [facility] Glucose 241(H) 70 - 199 mg/dL [facility] Comment: Interpretive Data Fasting glucose >/= 126 [...] 2022. Calcium 10.9(H) 8.5 - 10.3 mg/dL [facility] Bilirubin, total 3.4(H) 0.1 - 1.2 mg/dL [facility] Protein, pl 7.5 6.5 - 8.5 g/dL [facility] Albumin 5.0 3.5 - 5.0 g/dL [facility] Alk phos 79 40 - 130 Units/L [facility] ALT 19 7 - 45 Units/L [facility] AST 38 10 - 45 Units/L [facility] Blood 09/29/2024 8:49 PM STRING WINDING MACHINE OPERATOR 09/29/2024 10:02 PM STRING WINDING MACHINE OPERATOR Najma Pires MD LAB BLOOD ORDERABLES Final Result Performing Organization Address City/[facility]/ZIP Co de Phone Number [facility] [place] [address] * (ABNORMAL) POCT glucose (09/29/2024 8:08 PM STRING WINDING MACHINE OPERATOR) [facility] Glucose, POC 225(H) 70 - 199 mg/dL Blood 09/29/2024 8:08 PM STRING WINDING MACHINE OPERATOR 09/29/2024 8:08 PM STRING WINDING MACHINE OPERATOR Molina Dsouza MD LAB POCT ORDERABLE S - DEVICE Final Result Performing Organization Address [facility]/ZIP Co de Phone Number [facility] [place] [address] * (ABNORMAL) POCT glucose (09/29/2024 4:50 PM STRING WINDING MACHINE OPERATOR) Glucose, POC 236(H) 70 - 199 mg/dL Blood 09/29/2024 4:50 PM STRING WINDING MACHINE OPERATOR 09/29/2024 4:50 PM STRING WINDING MACHINE OPERATOR Molina Dsouza MD LAB POCT ORDERABLE S - DEVICE Final Result Performing Organization Address [facility]/ZIP Co de Phone Number [facility] Department [place] [address] * (ABNORMAL) POCT glucose (09/29/2024 11:35 AM STRING WINDING MACHINE OPERATOR) Glucose, POC 230(H) 70 - 199 mg/dL Blood 09/29/2024 11:3 5 AM STRING WINDING MACHINE OPERATOR 09/29/2024 11:35 AM STRING WINDING MACHINE OPERATOR Molina Dsouza MD LAB POCT ORDERABLE S - DEVICE Final Result Performing Organization Address [facility] de Phone Number [facility] [place] [address] * NUR[employer] SCHOOL TEACHER Evaluate and Treat (FEES) (09/29/2024 10:55 AM STRING WINDING MACHINE OPERATOR) Narrative [facility] - 09/29/2024 10:55 AM STRING WINDING MACHINE OPERATOR Marina Ty, NURSERY SCHOOL TEACHER 09/29/2024 3:25 PM Speech-Language Pathology: Flexible Endoscopic Evaluation of Swallowing (FEES) [facility] 63 y.o. F with hx of VELASCO cirrhosis and CKD currently listed for a simultaneous liver-kidney transplant (SLK), HTN, T2DM, atrial flutter, and ERNESTINE who presented to [facility] 09/24 as an OSH transfer for AMS. Pt was reportedly at baseline until 09/24 when EMS was called to her home as patient was found confused by her . Pt was initially brought to OSH ED, transferred to [facility] ED as she is an active liver transplant patient. EGD October 2022 w/o EV. #AMS, likely hepatic encephalopathy, improving Respiratory/Intubation Status: RA Imaging: CT Abdomen/Pelvis 09/26- New right lower lobe 8 mm pulmonary nodule. CXR 09/24- Lungs are clear. No pleural effusion or pneumothorax. Neuro Outside CT 09/24- No acute intracranial abnormality. Precautions: fall, ERNESTINE PLOF: CSE at [facility] on 08/02/2022 recommending regular solids with thin liquids, meds with puree, full supervision with meals, limit distractions Current Diet Order:npo, ice chips for pleasure pending fees Baseline Diet: reports regular diet General Information Nael Cardoza 09/[birth year]/24 [employer]UR[employer] SCHOOL TE[employer]ER Received On: 09/29/24 General Observations: Seen sitting upright in bed, pleasant and cooperative, functional voicing with slurred speech. Pain Score: 0 - No pain If pain >4, was RN notified? None Observed Patient Stated Goal/Comments: to start eating again Clinical Impression & Professional Recommendations Diet Solids Recommendation: Regular Diet Liquids Recommendations: [place] thick Recommended Form of Medications: As tolerated [...] deficits Secretions: Minimal Consistencies Administered: Thin liquids, [place] thick liquids, Purees, Solids (with green food coloring) Thin Liquids: Laryngeal Penetration: Present Aspiration Present: Yes Timing: Before Amount: Trace Response to aspiration: Throat clearing, None Cough: Non-productive Unsuccessful Modifications: Other (comment) (bolus hold) Penetration Aspiration Scale-Thin: 8-Material enters the airway, passes below the vocal folds and no effort is made to eject Zari Scale-Vallecular Residue-Thin Liquids: Trace Independence Scale-Pyriform Sinus Residue-Thin Liquids: Trace [place] Thickened Liquids: Laryngeal Penetration: None Aspiration Present: No Penetration Aspiration Scale-[place]: 1-Material does not enter airway Zari Scale-Vallecular Residue-[place] Thickened Liquids: Trace Zari Scale-Pyriform Sinus Residue-[place] Thickened Liquids: Trace Honey Thickened Liquids: Purees: [...] treatment goals and details, if indicated. Plan [employer] Frequency of Services during current admission: 1-2x/wk [employer] Recommendation (Add'l Services): Defer at this time Next Visit Plan:treatment/therapy and repeat instrumental evaluation 3-5 days Additional Referrals: none at this time Discharge Summary Statement If this is the last swallow therapy visit, this serves as the discharge summary. us Molina Dsouza MD NUR[employer]CHO[employer] TEACHER ORDERABLES Fi nal Result [facility] * NURS[employer] SCHOOL TEACHER Evaluate and Treat (VFSS) (09/29/2024 10:55 AM STRING WINDING MACHINE OPERATOR) Narrative Marina Ty, NURSERY SCHOOL TEACHER - 09/29/2024 10:55 AM STRING WINDING MACHINE OPERATOR Marina Ty, NURSERY SCHOOL TEACHER 09/29/2024 3:25 PM Speech-Language Pathology: Flexible Endoscopic Evaluation of Swallowing (FEES) [facility] 63 y.o. F with hx of [place]AS[place] cirrhosis and CKD currently listed for a simultaneous liver-kidney transplant (SLK), HTN, T2DM, atrial flutter, and ERNESTINE who presented to [facility] 09/24 as an OSH transfer for AMS. Pt was reportedly at baseline until [address]4009/24 when EMS was called to her home as patient was found confused by her . Pt was initially brought to OSH ED, transferred to [facility] ED as she is an active liver transplant patient. EGD October 2022 w/o EV. #AMS, likely hepatic encephalopathy, improving Respiratory/Intubation Status: RA Imaging: CT Abdomen/Pelvis 09/26- New right lower lobe 8 mm pulmonary nodule. CXR 09/24- Lungs are clear. No pleural effusion or pneumothorax. Neuro Outside CT 09/24- No acute intracranial abnormality. Precautions: fall, ERNESTINE PLOF: CSE at [facility] on 08/02/2022 recommending regular solids with thin liquids, meds with puree, full supervision with meals, limit distractions Current Diet Order:npo, ice chips for pleasure pending fees Baseline Diet: reports regular diet General Information Nael Cardoza 09/29/24 NURSERY SCHO[employer] TE[employer]ER Received On: 09/29/24 General Observations: Seen sitting upright in bed, pleasant and cooperative, functional voicing with slurred speech. Pain Score: 0 - No pain If pain >4, was RN notified? None Observed Patient Stated Goal/Comments: to start eating again Clinical Impression & Professional Recommendations Diet Solids Recommendation: Regular Diet Liquids Recommendations: [place] thick Recommended Form of Medications: As tolerated [...] deficits Secretions: Minimal Consistencies Administered: Thin liquids, [place] thick liquids, Purees, Solids (with green food coloring) Thin Liquids: Laryngeal Penetration: Present Aspiration Present: Yes Timing: Before Amount: Trace Response to aspiration: Throat clearing, None Cough: Non-productive Unsuccessful Modifications: Other (comment) (bolus hold) Penetration Aspiration Scale-Thin: 8-Material enters the airway, passes below the vocal folds and no effort is made to eject Zari Scale-Vallecular Residue-Thin Liquids: Trace Independence Scale-Pyriform Sinus Residue-Thin Liquids: Trace [place] Thickened Liquids: Laryngeal Penetration: None Aspiration Present: No Penetration Aspiration Scale-[place]: 1-Material does not enter airway Zari Scale-Vallecular Residue-[place] Thickened Liquids: Trace Z[place] Scale-Pyriform Sinus Residue-[place] Thickened Liquids: Trace Honey Thickened Liquids: Purees: Laryngeal Penetration: None Aspiration Present: No Penetration Aspiration Scale-Puree: 1-Material does not enter airway Independence Scale-Vallecular Residue-Puree: Trace Zari Scale-Pyriform Sinus Residue-Puree: [...] treatment goals and details, if indicated. Plan [employer] Frequency of Services during current admission: 1-2x/wk [employer] Recommendation (Add'l Services): Defer at this time Next Visit Plan:treatment/therapy and repeat instrumental evaluation 3-5 days Additional Referrals: none at this time Discharge Summary Statement If this is the last swallow therapy visit, this serves as the discharge summary. us Molina Dsouza MD [employer] ORDERABLES Fi nal Result * POCT glucose (09/29/2024 7:34 AM STRING WINDING MACHINE OPERATOR) Glucose, POC 185 70 - 199 mg/dL Blood 09/29/2024 7:34 AM STRING WINDING MACHINE OPERATOR 09/29/2024 7:34 AM STRING WINDING MACHINE OPERATOR us Molina Dsouza MD LAB POCT ORDERABLE S - DEVICE Final Result Performing Organization Address [facility] Co de Phone Number [facility] [place] [address] * (ABNORMAL) POCT glucose (09/29/2024 4:49 AM STRING WINDING MACHINE OPERATOR) Glucose, POC 203(H) 70 - 199 mg/dL Comment:Glu2: RN/MD Notified Glucose comment 1 Glu2: RN/MD Notified [facility] Blood 09/29/2024 4:49 AM STRING WINDING MACHINE OPERATOR 09/29/2024 4:49 AM STRING WINDING MACHINE OPERATOR us Molina Dsouza MD LAB POCT ORDERABLE S - DEVICE Final Result Performing Organization Address City/[facility] Co de Phone Number [facility] [place] [address] * POCT glucose (09/29/2024 12:25 AM STRING WINDING MACHINE OPERATOR) Glucose, POC 179 70 - 199 mg/dL Blood 09/29/2024 12:2 5 AM STRING WINDING MACHINE OPERATOR 09/29/2024 12:25 AM STRING WINDING MACHINE OPERATOR Molina Dsouza MD LAB POCT ORDERABLE S - DEVICE Final Result Performing Organization Address City/[facility] Co de Phone Number [facility] [place] [address] * (ABNORMAL) eGFR (09/28/2024 9:17 PM STRING WINDING MACHINE OPERATOR) Pathologist [facility] eGFR 21(L) >=60 mL/min/1. 73 m2 Comment: [...] last reviewed 2021. Blood 09/28/2024 9:17 PM STRING WINDING MACHINE OPERATOR 09/28/2024 10:40 PM STRING WINDING MACHINE OPERATOR us Najma Pires MD LAB BLOOD ORDERABLES Final Result Performing Organization Address City/[facility]/ZIP Co de Phone Number [facility] Department [place] [address] * (ABNORMAL) Differential, auto (09/28/2024 9:17 PM STRING WINDING MACHINE OPERATOR) Neutrophil abs 3.4 1.5 - 6.5 K/cumm Imm gran abs 0.0 0.0 - 0.1 K/cumm [facility] Lymphocyte abs 1.2 0.8 - 3.3 K/cumm [facility] Monocyte abs 0.9(H) 0.2 - 0.8 K/cumm [facility] Eosinophil abs 0.9(H) 0.0 - 0.5 K/cumm [facility] Basophil abs 0.0 0.0 - 0.1 K/cumm [facility] Neutrophil pct 52.8 % [facility] Comment: Interpretive Data Percent cell count reference ranges are not reported, since discordance with absolute values may lead to misinterpretation of CBC data. Current Interpretive Data was last revised on 2017. Imm gran pct 0.5 % [facility] Comment: Interpretive Data Percent cell count reference ranges are not reported, since discordance with absolute values may lead to misinterpretation of CBC data. Current Interpretive Data was last revised on 2017. Lymphocyte pct 18.2 % [facility] Comment: Interpretive Data Percent cell count reference ranges are not reported, since discordance with absolute values may lead to misinterpretation of CBC data. Current Interpretive Data was last revised on 2017. Monocyte pct 14.5 % [facility] Comment: Interpretive Data Percent cell count reference ranges are not reported, since discordance with absolute values may lead to misinterpretation of CBC data. Current Interpretive Data was last revised on 2017. Eosinophil pct 13.4 % [facility] Comment: Interpretive Data Percent cell count reference ranges are not reported, since discordance with absolute values may lead to misinterpretation of CBC data. Current Interpretive Data was last revised on 2017. Basophil pct 0.6 % [facility] Comment: Interpretive Data Percent cell count reference ranges are not reported, since discordance with absolute values may lead to misinterpretation of CBC data. Current Interpretive Data was last revised on 2017. Blood 09/28/2024 9:17 PM STRING WINDING MACHINE OPERATOR 09/28/2024 10:40 PM STRING WINDING MACHINE OPERATOR Najma Pires MD LAB BLOOD ORDERABLES Final Result Performing Organization Address [facility] Co de Phone Number [facility] [place] [address] * (ABNORMAL) CBC with auto differential (09/28/2024 9:17 PM STRING WINDING MACHINE OPERATOR) Pathologist [facility] WBC 6.4 3.8 - 9.9 K/cumm Hgb 11.6(L) 11.9 - 15.5 g/dL [facility] Hct 35.4(L) 35.6 - 45.5 % [facility] Plt 62(L) 150 - 400 K/cumm [facility] MPV 11.5 9.1 - 12.3 fL [facility] RBC 3.65(L) 3.90 - 5.20 M/cumm [facility] MCV 97.0(H) 81.3 - 96.4 fL [facility] MCH 31.8 27.1 - 33.3 pg [facility] MCHC 32.8 32.3 - 35.7 g/dL [facility] RDW CV 14.5 11.1 - 14.9 % [facility] RDW SD 51.1(H) 35.7 - 48.1 fL [facility] NRBC abs 0.00 0.00 - 0.01 K/cumm [facility] Blood 09/28/2024 9:17 PM STRING WINDING MACHINE OPERATOR 09/28/2024 10:40 PM STRING WINDING MACHINE OPERATOR Najma Pires MD LAB BLOOD ORDERABLES Final Result Performing Organization Address [facility]/ZIP Co de Phone Number [facility] Department [place] [address] * (ABNORMAL) Protime-INR (09/28/2024 9:17 PM STRING WINDING MACHINE OPERATOR) Pathologist [facility] PT 15.4(H) 9.7 - 13.0 sec INR 1.42(H) 0.90 - 1.20 [facility] Comment: Interpretive data Oral anticoagulant therapeutic ranges: Venous thromboembolism prophylaxis or treatment: 2.0-3.0 CARDIOLOGY Standard range: 2.0-3.0 High-intensity range: 2.5-3.5 Refer to indication-specific guidelines for appropriate target ranges for prosthetic heart valve replacement. Current interpretive data was last revised on 2019. Blood 09/28/2024 9:17 PM STRING WINDING MACHINE OPERATOR 09/28/2024 10:49 PM STRING WINDING MACHINE OPERATOR us Stuart Flores MD LAB BLOOD ORDERABLES Final Resul t Performing Organization Address City/[facility] Co de Phone Number [facility] [place] [address] * Phosphorus (09/28/2024 9:17 PM STRING WINDING MACHINE OPERATOR) Pathologist [facility] Phosphorus, pl 2.3 2.3 - 4.5 mg/dL Blood 09/28/2024 9:17 PM STRING WINDING MACHINE OPERATOR 09/28/2024 10:40 PM STRING WINDING MACHINE OPERATOR us Stuart Flores MD LAB BLOOD ORDERABLES Final Resul t Performing Organization Address [facility] de Phone Number [facility] [place] [address] * (ABNORMAL) Magnesium (09/28/2024 9:17 PM STRING WINDING MACHINE OPERATOR) Pathologist [facility] Magnesium 2.8(H) 1.4 - 2.5 mg/dL Blood 09/28/2024 9:17 PM STRING WINDING MACHINE OPERATOR 09/28/2024 10:40 PM STRING WINDING MACHINE OPERATOR us Stuart Flores MD LAB BLOOD ORDERABLES Final Resul t Performing Organization Address [facility] Co de Phone Number [facility] [place] [address] * (ABNORMAL) Hemoglobin A1c (09/28/2024 9:17 PM STRING WINDING MACHINE OPERATOR) Hgb A1C 8.5(H) 4.0 - 5.6 % Estimated Average Glucose 197 mg/dL [facility] Blood 09/28/2024 9:17 PM STRING WINDING MACHINE OPERATOR 09/28/2024 10:44 PM STRING WINDING MACHINE OPERATOR us Swapnil Moore MD LAB BLOOD ORDERABLES Fin al Result [facility] Department [place] [address] * (ABNORMAL) Comprehensive metabolic panel (09/28/2024 9:17 PM STRING WINDING MACHINE OPERATOR) Sodium 144 135 - 145 mmol/L Potassium, pl 3.4 3.3 - 4.9 mmol/L [facility] Chloride 101 97 - 110 mmol/L [facility] CO2 29 22 - 32 mmol/L [facility] Anion gap 14 2 - 15 mmol/L [facility] BUN 58(H) 6 - 25 mg/dL [facility] Creatinine 2.53(H) 0.60 - 1.10 mg/dL [facility] Glucose 207(H) 70 - 199 mg/dL [facility] Comment: Interpretive Data Fasting glucose >/= 126 [...] 2022. Calcium 10.6(H) 8.5 - 10.3 mg/dL [facility] Bilirubin, total 2.9(H) 0.1 - 1.2 mg/dL [facility] Protein, pl 7.5 6.5 - 8.5 g/dL [facility] Albumin 4.8 3.5 - 5.0 g/dL [facility] Alk phos 81 40 - 130 Units/L [facility] ALT 20 7 - 45 Units/L [facility] AST 32 10 - 45 Units/L [facility] Blood 09/28/2024 9:17 PM STRING WINDING MACHINE OPERATOR 09/28/2024 10:40 PM STRING WINDING MACHINE OPERATOR us Najma Pires MD LAB BLOOD ORDERABLES Final Result Performing Organization Address [facility] Co de Phone Number [facility] [place] [address] * (ABNORMAL) POCT glucose (09/28/2024 7:57 PM STRING WINDING MACHINE OPERATOR) Glucose, POC 203(H) 70 - 199 mg/dL Comment:Glu2: RN/MD Notified Glucose comment 1 Glu2: RN/MD Notified [facility] Blood 09/28/2024 7:57 PM STRING WINDING MACHINE OPERATOR 09/28/2024 7:57 PM STRING WINDING MACHINE OPERATOR us Molina Dsouza MD LAB POCT ORDERABLE S - DEVICE Final Result Performing Organization Address [facility] Co de Phone Number [facility] [place] [address] * (ABNORMAL) POCT glucose (09/28/2024 4:31 PM STRING WINDING MACHINE OPERATOR) Glucose, POC 218(H) 70 - 199 mg/dL Blood 09/28/2024 4:31 PM STRING WINDING MACHINE OPERATOR 09/28/2024 4:31 PM STRING WINDING MACHINE OPERATOR us Stuart Flores MD LAB POCT ORDERABLES - DEVICE Fin al Result Performing Organization Address City/[facility] [place] [address] * (ABNORMAL) POCT glucose (09/28/2024 11:23 AM STRING WINDING MACHINE OPERATOR) Glucose, POC 244(H) 70 - 199 mg/dL Blood 09/28/2024 11:2 3 AM STRING WINDING MACHINE OPERATOR 09/28/2024 11:23 AM STRING WINDING MACHINE OPERATOR us Stuart Flores MD LAB POCT ORDERABLES - DEVICE Fin al Result Performing Organization Address [facility] de Phone Number [facility] [place] [address] * (ABNORMAL) POCT glucose (09/28/2024 8:01 AM STRING WINDING MACHINE OPERATOR) Glucose, POC 271(H) 70 - 199 mg/dL Blood 09/28/2024 8:01 AM STRING WINDING MACHINE OPERATOR 09/28/2024 8:01 AM STRING WINDING MACHINE OPERATOR us Stuart Flores MD LAB POCT ORDERABLES - DEVICE Fin al Result Performing Organization Address [facility] Phone Number [facility] Department [place] [address] * (ABNORMAL) POCT glucose (09/28/2024 4:52 AM STRING WINDING MACHINE OPERATOR) Glucose, POC 227(H) 70 - 199 mg/dL Blood 09/28/2024 4:52 AM STRING WINDING MACHINE OPERATOR 09/28/2024 4:52 AM STRING WINDING MACHINE OPERATOR us Stuart Flores MD LAB POCT ORDERABLES - DEVICE Fin al Result Performing Organization Address [facility] de Phone Number [facility] [place] [address] * (ABNORMAL) POCT glucose (09/28/2024 12:29 AM STRING WINDING MACHINE OPERATOR) Glucose, POC 232(H) 70 - 199 mg/dL Blood 09/28/2024 12:2 9 AM STRING WINDING MACHINE OPERATOR 09/28/2024 12:29 AM STRING WINDING MACHINE OPERATOR us Stuart Flores MD LAB POCT ORDERABLES - DEVICE Fin al Result Performing Organization Address [facility] de Phone Number [facility] Department [place] [address] * (ABNORMAL) eGFR (09/28/2024 12:06 AM STRING WINDING MACHINE OPERATOR) eGFR 15(L) >=60 mL/min/1. 73 m2 Comment: [...] reviewed 2021. Blood 09/28/2024 12:0 6 AM STRING WINDING MACHINE OPERATOR 09/28/2024 12:22 AM STRING WINDING MACHINE OPERATOR us Najma Pires MD LAB BLOOD ORDERABLES Final Result Performing Organization Address [facility] Co de Phone Number [facility] Department [place] [address] * (ABNORMAL) Differential, auto (09/28/2024 12:06 AM STRING WINDING MACHINE OPERATOR) Neutrophil abs 3.3 1.5 - 6.5 K/cumm Imm gran abs 0.0 0.0 - 0.1 K/cumm [facility] Lymphocyte abs 1.2 0.8 - 3.3 K/cumm [facility] Monocyte abs 1.0(H) 0.2 - 0.8 K/cumm [facility] Eosinophil abs 0.7(H) 0.0 - 0.5 K/cumm [facility] Basophil abs 0.1 0.0 - 0.1 K/cumm [facility] Neutrophil pct 52.8 % [facility] Comment: Interpretive Data Percent cell count reference ranges are not reported, since discordance with absolute values may lead to misinterpretation of CBC data. Current Interpretive Data was last revised on 2017. Imm gran pct 0.5 % [facility] Comment: Interpretive Data Percent cell count reference ranges are not reported, since discordance with absolute values may lead to misinterpretation of CBC data. Current Interpretive Data was last revised on 2017. Lymphocyte pct 19.0 % [facility] Comment: Interpretive Data Percent cell count reference ranges are not reported, since discordance with absolute values may lead to misinterpretation of CBC data. Current Interpretive Data was last revised on 2017. Monocyte pct 15.7 % [facility] Comment: Interpretive Data Percent cell count reference ranges are not reported, since discordance with absolute values may lead to misinterpretation of CBC data. Current Interpretive Data was last revised on 2017. Eosinophil pct 11.2 % [facility] Comment: Interpretive Data Percent cell count reference ranges are not reported, since discordance with absolute values may lead to misinterpretation of CBC data. Current Interpretive Data was last revised on 2017. Basophil pct 0.8 % [facility] Comment: Interpretive Data Percent cell count reference ranges are not reported, since discordance with absolute values may lead to misinterpretation of CBC data. Current Interpretive Data was last revised on 2017. Blood 09/28/2024 12:0 6 AM STRING WINDING MACHINE OPERATOR 09/28/2024 12:24 AM STRING WINDING MACHINE OPERATOR us Najma Pires MD LAB BLOOD ORDERABLES Final Result [facility] [place] [address] * (ABNORMAL) CBC with auto differential (09/28/2024 12:06 AM STRING WINDING MACHINE OPERATOR) WBC 6.2 3.8 - 9.9 K/cumm Hgb 11.4(L) 11.9 - 15.5 g/dL [facility] Hct 33.7(L) 35.6 - 45.5 % [facility] Plt 64(L) 150 - 400 K/cumm [facility] MPV 11.8 9.1 - 12.3 fL [facility] RBC 3.54(L) 3.90 - 5.20 M/cumm [facility] MCV 95.2 81.3 - 96.4 fL [facility] MCH 32.2 27.1 - 33.3 pg [facility] MCHC 33.8 32.3 - 35.7 g/dL [facility] RDW CV 14.6 11.1 - 14.9 % [facility] RDW SD 50.9(H) 35.7 - 48.1 fL [facility] NRBC abs 0.00 0.00 - 0.01 K/cumm [facility] Blood 09/28/2024 12:0 6 AM STRING WINDING MACHINE OPERATOR 09/28/2024 12:24 AM STRING WINDING MACHINE OPERATOR us Njama Pires MD LAB BLOOD ORDERABLES Final Result [facility] Department [place] [address] * (ABNORMAL) Protime-INR (09/28/2024 12:06 AM STRING WINDING MACHINE OPERATOR) PT 16.2(H) 9.7 - 13.0 sec INR 1.49(H) 0.90 - 1.20 [facility] Comment: Interpretive data Oral anticoagulant therapeutic ranges: Venous thromboembolism prophylaxis or treatment: 2.0-3.0 CARDIOLOGY Standard range: 2.0-3.0 High-intensity range: 2.5-3.5 Refer to indication-specific guidelines for appropriate target ranges for prosthetic heart valve replacement. Current interpretive data was last revised on 2019. Blood 09/28/2024 12:0 6 AM STRING WINDING MACHINE OPERATOR 09/28/2024 12:35 AM STRING WINDING MACHINE OPERATOR us Stuart Flores MD LAB BLOOD ORDERABLES Final Resul t Performing Organization Address City/[facility] Co de Phone Number [facility] [place] [address] * Phosphorus (09/28/2024 12:06 AM STRING WINDING MACHINE OPERATOR) Phosphorus, pl 2.5 2.3 - 4.5 mg/dL Blood 09/28/2024 12:0 6 AM STRING WINDING MACHINE OPERATOR 09/28/2024 12:22 AM STRING WINDING MACHINE OPERATOR us Stuart Flores MD LAB BLOOD ORDERABLES Final Resul t Performing Organization Address [facility] de Phone Number [facility] [place] [address] * (ABNORMAL) Magnesium (09/28/2024 12:06 AM STRING WINDING MACHINE OPERATOR) Pathologist [facility] Magnesium 2.9(H) 1.4 - 2.5 mg/dL Blood 09/28/2024 12:0 6 AM STRING WINDING MACHINE OPERATOR 09/28/2024 12:22 AM STRING WINDING MACHINE OPERATOR us Stuart Flores MD LAB BLOOD ORDERABLES Final Resul t Performing Organization Address [facility] de Phone Number [facility] [place] [address] * (ABNORMAL) Comprehensive metabolic panel (09/28/2024 12:06 AM STRING WINDING MACHINE OPERATOR) Sodium 143 135 - 145 mmol/L Potassium, pl 3.5 3.3 - 4.9 mmol/L [facility] Chloride 101 97 - 110 mmol/L [facility] CO2 27 22 - 32 mmol/L [facility] Anion gap 15 2 - 15 mmol/L [facility] BUN 74(H) 6 - 25 mg/dL [facility] Creatinine 3.29(H) 0.60 - 1.10 mg/dL [facility] Glucose 244(H) 70 - 199 mg/dL [facility] Comment: Interpretive Data Fasting glucose >/= 126 [...] 2022. Calcium 10.5(H) 8.5 - 10.3 mg/dL [facility] Bilirubin, total 2.6(H) 0.1 - 1.2 mg/dL [facility] Protein, pl 6.9 6.5 - 8.5 g/dL [facility] Albumin 4.4 3.5 - 5.0 g/dL [facility] Alk phos 80 40 - 130 Units/L [facility] ALT 18 7 - 45 Units/L [facility] AST 29 10 - 45 Units/L [facility] Blood 09/28/2024 12:0 6 AM STRING WINDING MACHINE OPERATOR 09/28/2024 12:22 AM STRING WINDING MACHINE OPERATOR us Najma Pires MD LAB BLOOD ORDERABLES Final Result Performing Organization Address City/[facility]/ZIP Co de Phone Number [facility] [place] [address] * (ABNORMAL) POCT glucose (09/27/2024 11:55 PM STRING WINDING MACHINE OPERATOR) [facility] Glucose, POC 224(H) 70 - 199 mg/dL Blood 09/27/2024 11:5 5 PM STRING WINDING MACHINE OPERATOR 09/27/2024 11:55 PM STRING WINDING MACHINE OPERATOR us Stuart Flores MD LAB POCT ORDERABLES - DEVICE Fin al Result Performing Organization Address [facility]/ZIP Co de Phone Number [facility] Department [place] [address] * POCT glucose (09/27/2024 8:03 PM STRING WINDING MACHINE OPERATOR) Glucose, POC 197 70 - 199 mg/dL Blood 09/27/2024 8:03 PM STRING WINDING MACHINE OPERATOR 09/27/2024 8:03 PM STRING WINDING MACHINE OPERATOR us Stuart Flores MD LAB POCT ORDERABLES - DEVICE Fin al Result Performing Organization Address City/[facility] de Phone Number [facility] [place] [address] * (ABNORMAL) POCT glucose (09/27/2024 4:26 PM STRING WINDING MACHINE OPERATOR) Glucose, POC 203(H) 70 - 199 mg/dL Blood 09/27/2024 4:26 PM STRING WINDING MACHINE OPERATOR 09/27/2024 4:26 PM STRING WINDING MACHINE OPERATOR us Stuart Flores MD LAB POCT ORDERABLES - DEVICE Fin al Result Performing Organization Address [facility] de Phone Number [facility] [place] [address] * (ABNORMAL) POCT glucose (09/27/2024 11:49 AM STRING WINDING MACHINE OPERATOR) Glucose, POC 241(H) 70 - 199 mg/dL Blood 09/27/2024 11:4 9 AM STRING WINDING MACHINE OPERATOR 09/27/2024 11:49 AM STRING WINDING MACHINE OPERATOR us Stuart Flores MD LAB POCT ORDERABLES - DEVICE Fin al Result Performing Organization Address [facility] [place] [address] * POCT glucose (09/27/2024 8:05 AM STRING WINDING MACHINE OPERATOR) Glucose, POC 199 70 - 199 mg/dL Blood 09/27/2024 8:05 AM STRING WINDING MACHINE OPERATOR 09/27/2024 8:05 AM STRING WINDING MACHINE OPERATOR us Stuart Flores MD LAB POCT ORDERABLES - DEVICE Fin al Result Performing Organization Address [facility] Phone Number [facility] [place] [address] * (ABNORMAL) POCT glucose (09/27/2024 4:24 AM STRING WINDING MACHINE OPERATOR) Glucose, POC 215(H) 70 - 199 mg/dL Blood 09/27/2024 4:24 AM STRING WINDING MACHINE OPERATOR 09/27/2024 4:24 AM STRING WINDING MACHINE OPERATOR us Stuart Flores MD LAB POCT ORDERABLES - DEVICE Fin al Result Performing Organization Address [facility] Phone Number [facility] [place] [address] * POCT glucose (09/26/2024 11:20 PM STRING WINDING MACHINE OPERATOR) [facility] Glucose, POC 168 70 - 199 mg/dL Blood 09/26/2024 11:2 0 PM STRING WINDING MACHINE OPERATOR 09/26/2024 11:20 PM STRING WINDING MACHINE OPERATOR us Stuart Flores MD LAB POCT ORDERABLES - DEVICE Fin al Result Performing Organization Address [facility] Phone Number [facility] [place] [address] * (ABNORMAL) eGFR (09/26/2024 9:23 PM STRING WINDING MACHINE OPERATOR) eGFR 10(L) >=60 mL/min/1. 73 m2 Comment: [...] last reviewed 2021. Blood 09/26/2024 9:23 PM STRING WINDING MACHINE OPERATOR 09/26/2024 10:24 PM STRING WINDING MACHINE OPERATOR us Najma Pires MD LAB BLOOD ORDERABLES Final Result [facility] Department [place] [address] * (ABNORMAL) Differential, auto (09/26/2024 9:23 PM STRING WINDING MACHINE OPERATOR) Neutrophil abs 3.7 1.5 - 6.5 K/cumm Imm gran abs 0.0 0.0 - 0.1 K/cumm [facility] Lymphocyte abs 1.6 0.8 - 3.3 K/cumm [facility] Monocyte abs 1.0(H) 0.2 - 0.8 K/cumm [facility] Eosinophil abs 0.7(H) 0.0 - 0.5 K/cumm [facility] Basophil abs 0.0 0.0 - 0.1 K/cumm [facility] Neutrophil pct 53.1 % [facility] Comment: Interpretive Data Percent cell count reference ranges are not reported, since discordance with absolute values may lead to misinterpretation of CBC data. Current Interpretive Data was last revised on 2017. Imm gran pct 0.4 % [facility] Comment: Interpretive Data Percent cell count reference ranges are not reported, since discordance with absolute values may lead to misinterpretation of CBC data. Current Interpretive Data was last revised on 2017. Lymphocyte pct 23.0 % [facility] Comment: Interpretive Data Percent cell count reference ranges are not reported, since discordance with absolute values may lead to misinterpretation of CBC data. Current Interpretive Data was last revised on 2017. Monocyte pct 13.5 % [facility] Comment: Interpretive Data Percent cell count reference ranges are not reported, since discordance with absolute values may lead to misinterpretation of CBC data. Current Interpretive Data was last revised on 2017. Eosinophil pct 9.4 % [facility] Comment: Interpretive Data Percent cell count reference ranges are not reported, since discordance with absolute values may lead to misinterpretation of CBC data. Current Interpretive Data was last revised on 2017. Basophil pct 0.6 % [facility] Comment: Interpretive Data Percent cell count reference ranges are not reported, since discordance with absolute values may lead to misinterpretation of CBC data. Current Interpretive Data was last revised on 2017. Blood 09/26/2024 9:23 PM STRING WINDING MACHINE OPERATOR 09/26/2024 10:25 PM STRING WINDING MACHINE OPERATOR us Najma Pires MD LAB BLOOD ORDERABLES Final Result [facility] Department [place] [address] * (ABNORMAL) CBC with auto differential (09/26/2024 9:23 PM STRING WINDING MACHINE OPERATOR) WBC 7.0 3.8 - 9.9 K/cumm Hgb 11.1(L) 11.9 - 15.5 g/dL [facility] Hct 31.6(L) 35.6 - 45.5 % [facility] Plt 66(L) 150 - 400 K/cumm [facility] MPV 12.7(H) 9.1 - 12.3 fL [facility] RBC 3.44(L) 3.90 - 5.20 M/cumm [facility] MCV 91.9 81.3 - 96.4 fL [facility] MCH 32.3 27.1 - 33.3 pg [facility] MCHC 35.1 32.3 - 35.7 g/dL [facility] RDW CV 14.6 11.1 - 14.9 % [facility] RDW SD 49.0(H) 35.7 - 48.1 fL [facility] NRBC abs 0.00 0.00 - 0.01 K/cumm [facility] Blood 09/26/2024 9:23 PM STRING WINDING MACHINE OPERATOR 09/26/2024 10:25 PM STRING WINDING MACHINE OPERATOR Najma Pires MD LAB BLOOD ORDERABLES Final Result Performing Organization Address [facility] Co de Phone Number [facility] Department [place] [address] * (ABNORMAL) Protime-INR (09/26/2024 9:23 PM STRING WINDING MACHINE OPERATOR) PT 15.3(H) 9.7 - 13.0 sec INR 1.41(H) 0.90 - 1.20 [facility] Comment: Interpretive data Oral anticoagulant therapeutic ranges: Venous thromboembolism prophylaxis or treatment: 2.0-3.0 CARDIOLOGY Standard range: 2.0-3.0 High-intensity range: 2.5-3.5 Refer to indication-specific guidelines for appropriate target ranges for prosthetic heart valve replacement. Current interpretive data was last revised on 2019. Blood 09/26/2024 9:23 PM STRING WINDING MACHINE OPERATOR 09/26/2024 10:19 PM STRING WINDING MACHINE OPERATOR Result [facility] Stuart Flores MD LAB BLOOD ORDERABLES Final Resul t Performing Organization Address [facility] Co de Phone Number [facility] Department [place] [address] * Phosphorus (09/26/2024 9:23 PM STRING WINDING MACHINE OPERATOR) Phosphorus, pl 3.2 2.3 - 4.5 mg/dL Comment:Repeated and Verifie d Blood 09/26/2024 9:23 PM STRING WINDING MACHINE OPERATOR 09/26/2024 10:24 PM STRING WINDING MACHINE OPERATOR us Stuart Flores MD LAB BLOOD ORDERABLES Final Resul t Performing Organization Address City/[facility]/ZIP Co de Phone Number [facility] Department [place] [address] * (ABNORMAL) Magnesium (09/26/2024 9:23 PM STRING WINDING MACHINE OPERATOR) Pathologist [facility] Magnesium 3.0(H) 1.4 - 2.5 mg/dL Blood 09/26/2024 9:23 PM STRING WINDING MACHINE OPERATOR 09/26/2024 10:24 PM STRING WINDING MACHINE OPERATOR Stuart Flores MD LAB BLOOD ORDERABLES Final Resul t Performing Organization Address [facility] de Phone Number [facility] Department [place] [address] * (ABNORMAL) Comprehensive metabolic panel (09/26/2024 9:23 PM STRING WINDING MACHINE OPERATOR) [facility] Sodium 143 135 - 145 mmol/L Potassium, pl 3.3 3.3 - 4.9 mmol/L [facility] Chloride 100 97 - 110 mmol/L [facility] CO2 26 22 - 32 mmol/L [facility] Anion gap 17(H) 2 - 15 mmol/L [facility] BUN 93(H) 6 - 25 mg/dL [facility] Creatinine 4.70(H) 0.60 - 1.10 mg/dL [facility] Glucose 196 70 - 199 mg/dL [facility] Comment: Interpretive Data Fasting glucose >/= 126 [...] 2022. Calcium 10.1 8.5 - 10.3 mg/dL [facility] Bilirubin, total 2.1(H) 0.1 - 1.2 mg/dL [facility] Protein, pl 6.6 6.5 - 8.5 g/dL [facility] Albumin 4.3 3.5 - 5.0 g/dL [facility] Alk phos 85 40 - 130 Units/L [facility] ALT 13 7 - 45 Units/L [facility] AST 30 10 - 45 Units/L [facility] Blood 09/26/2024 9:23 PM STRING WINDING MACHINE OPERATOR 09/26/2024 10:24 PM STRING WINDING MACHINE OPERATOR Najma Pires MD LAB BLOOD ORDERABLES Final Result Performing Organization Address [facility] Co de Phone Number [facility] [place] [address] * (ABNORMAL) POCT glucose (09/26/2024 7:53 PM STRING WINDING MACHINE OPERATOR) Glucose, POC 204(H) 70 - 199 mg/dL Blood 09/26/2024 7:53 PM STRING WINDING MACHINE OPERATOR 09/26/2024 7:53 PM STRING WINDING MACHINE OPERATOR Result [facility] Stuart Flores MD LAB POCT ORDERABLES - DEVICE Fin al Result Performing Organization Address [facility] Co de Phone Number [facility] [place] [address] * (ABNORMAL) POCT glucose (09/26/2024 4:37 PM STRING WINDING MACHINE OPERATOR) Glucose, POC 256(H) 70 - 199 mg/dL Blood 09/26/2024 4:37 PM STRING WINDING MACHINE OPERATOR 09/26/2024 4:37 PM STRING WINDING MACHINE OPERATOR us Stuart Flores MD LAB POCT ORDERABLES - DEVICE Fin al Result Performing Organization Address [facility] Co de Phone Number [facility] [place] [address] * (ABNORMAL) eGFR (09/26/2024 3:40 PM STRING WINDING MACHINE OPERATOR) Pathologist [facility] eGFR 9(L) >=60 mL/min/1. 73 m2 Comment: [...] last reviewed 2021. Blood 09/26/2024 3:40 PM STRING WINDING MACHINE OPERATOR 09/26/2024 5:50 PM STRING WINDING MACHINE OPERATOR us Stuart Flores MD LAB BLOOD ORDERABLES Final Resul t [facility] Department [place] [address] * (ABNORMAL) Basic metabolic panel (09/26/2024 3:40 PM STRING WINDING MACHINE OPERATOR) [facility] Sodium 139 135 - 145 mmol/L Potassium, pl 3.4 3.3 - 4.9 mmol/L [facility] Chloride 98 97 - 110 mmol/L [facility] CO2 25 22 - 32 mmol/L [facility] Anion gap 16(H) 2 - 15 mmol/L [facility] BUN 87(H) 6 - 25 mg/dL [facility] Creatinine 4.94(H) 0.60 - 1.10 mg/dL [facility] Glucose 273(H) 70 - 199 mg/dL [facility] Comment: Interpretive Data Fasting glucose >/= 126 [...] 2022. Calcium 10.1 8.5 - 10.3 mg/dL [facility] Blood 09/26/2024 3:40 PM STRING WINDING MACHINE OPERATOR 09/26/2024 5:50 PM STRING WINDING MACHINE OPERATOR us Stuart Flores MD LAB BLOOD ORDERABLES Final Resul t Performing Organization Address [facility] Phone Number [facility] Department [place] [address] * (ABNORMAL) POCT glucose (09/26/2024 11:16 AM STRING WINDING MACHINE OPERATOR) Glucose, POC 290(H) 70 - 199 mg/dL Blood 09/26/2024 11:1 6 AM STRING WINDING MACHINE OPERATOR 09/26/2024 11:16 AM STRING WINDING MACHINE OPERATOR us Stuart Flores MD LAB POCT ORDERABLES - DEVICE Fin al Result Performing Organization Address [facility] de Phone Number [facility] Department [place] [address] * (ABNORMAL) POCT glucose (09/26/2024 9:40 AM STRING WINDING MACHINE OPERATOR) Glucose, POC 233(H) 70 - 199 mg/dL Blood 09/26/2024 9:40 AM STRING WINDING MACHINE OPERATOR 09/26/2024 9:40 AM STRING WINDING MACHINE OPERATOR us Stuart Flores MD LAB POCT ORDERABLES - DEVICE Fin al Result [facility] [place] [address] * (ABNORMAL) Lactate (09/26/2024 8:16 AM STRING WINDING MACHINE OPERATOR) Lactate 3.4(H) 0.7 - 2.0 mmol/L Blood 09/26/2024 8:16 AM STRING WINDING MACHINE OPERATOR 09/26/2024 8:25 AM STRING WINDING MACHINE OPERATOR us Stuart Flores MD LAB BLOOD ORDERABLES Final Resul t Performing Organization Address [facility] [place] [address] * (ABNORMAL) POCT glucose (09/26/2024 7:45 AM STRING WINDING MACHINE OPERATOR) Glucose, POC 305(H) 70 - 199 mg/dL Blood 09/26/2024 7:45 AM STRING WINDING MACHINE OPERATOR 09/26/2024 7:45 AM STRING WINDING MACHINE OPERATOR us Stuart Flores MD LAB POCT ORDERABLES - DEVICE Fin al Result Performing Organization Address [facility] de Phone Number [facility] [place] [address] * (ABNORMAL) POCT glucose (09/26/2024 4:26 AM STRING WINDING MACHINE OPERATOR) Glucose, POC 283(H) 70 - 199 mg/dL Blood 09/26/2024 4:26 AM STRING WINDING MACHINE OPERATOR 09/26/2024 4:26 AM STRING WINDING MACHINE OPERATOR us Stuart Flores MD LAB POCT ORDERABLES - DEVICE Fin al Result Performing Organization Address [facility] Co de Phone Number [facility] [place] [address] * CT Abdomen Pelvis WO Contrast (09/26/2024 3:17 AM STRING WINDING MACHINE OPERATOR) Anatomical Region Laterality Modality Body N/A Computed Tomogra phy 09/26/2024 3:35 AM STRING WINDING MACHINE OPERATOR Impressions 09/26/2024 8:12 AM STRING WINDING MACHINE OPERATOR 1. No acute intra-abdominal findings. 2. Cirrhotic [...] Juan Randall MD Narrative 09/26/2024 8:12 AM STRING WINDING MACHINE OPERATOR EXAMINATION: Computed tomography of the abdomen and [...] Result * (ABNORMAL) Lactate (09/26/2024 12:44 AM STRING WINDING MACHINE OPERATOR) Lactate 3.5(H) 0.7 - 2.0 mmol/L Blood 09/26/2024 12:4 4 AM STRING WINDING MACHINE OPERATOR 09/26/2024 1:06 AM STRING WINDING MACHINE OPERATOR us Stuart Flores MD LAB BLOOD ORDERABLES Final Resul t [facility] Department [place] [address] * (ABNORMAL) POCT glucose (09/26/2024 12:08 AM STRING WINDING MACHINE OPERATOR) Glucose, POC 302(H) 70 - 199 mg/dL Blood 09/26/2024 12:0 8 AM STRING WINDING MACHINE OPERATOR 09/26/2024 12:08 AM STRING WINDING MACHINE OPERATOR us Stuart Flores MD LAB POCT ORDERABLES - DEVICE Fin al Result Performing Organization Address City/[facility] Co de Phone Number CHARIS[facility] Department [place] [address] * (ABNORMAL) eGFR (09/25/2024 10:48 PM STRING WINDING MACHINE OPERATOR) Pathologist [facility] eGFR 9(L) >=60 mL/min/1. 73 m2 Comment: [...] reviewed 2021. Blood 09/25/2024 10:4 8 PM STRING WINDING MACHINE OPERATOR 09/26/2024 12:38 AM STRING WINDING MACHINE OPERATOR us Najma Pires MD LAB BLOOD ORDERABLES Final Result Performing Organization Address [facility]/ZIP Co de Phone Number [facility] Department [place] [address] * (ABNORMAL) Differential, auto (09/25/2024 10:48 PM STRING WINDING MACHINE OPERATOR) Neutrophil abs 5.9 1.5 - 6.5 K/cumm Imm gran abs 0.0 0.0 - 0.1 K/cumm [facility] Lymphocyte abs 1.8 0.8 - 3.3 K/cumm [facility] Monocyte abs 1.2(H) 0.2 - 0.8 K/cumm [facility] Eosinophil abs 0.5 0.0 - 0.5 K/cumm [facility] Basophil abs 0.1 0.0 - 0.1 K/cumm [facility] Neutrophil pct 62.4 % [facility] Comment: Interpretive Data Percent cell count reference ranges are not reported, since discordance with absolute values may lead to misinterpretation of CBC data. Current Interpretive Data was last revised on 2017. Imm gran pct 0.2 % [facility] Comment: Interpretive Data Percent cell count reference ranges are not reported, since discordance with absolute values may lead to misinterpretation of CBC data. Current Interpretive Data was last revised on 2017. Lymphocyte pct 19.1 % [facility] Comment: Interpretive Data Percent cell count reference ranges are not reported, since discordance with absolute values may lead to misinterpretation of CBC data. Current Interpretive Data was last revised on 2017. Monocyte pct 12.3 % [facility] Comment: Interpretive Data Percent cell count reference ranges are not reported, since discordance with absolute values may lead to misinterpretation of CBC data. Current Interpretive Data was last revised on 2017. Eosinophil pct 5.4 % [facility] Comment: Interpretive Data Percent cell count reference ranges are not reported, since discordance with absolute values may lead to misinterpretation of CBC data. Current Interpretive Data was last revised on 2017. Basophil pct 0.6 % [facility] Comment: Interpretive Data Percent cell count reference ranges are not reported, since discordance with absolute values may lead to misinterpretation of CBC data. Current Interpretive Data was last revised on 2017. Blood 09/25/2024 10:4 8 PM STRING WINDING MACHINE OPERATOR 09/26/2024 12:37 AM STRING WINDING MACHINE OPERATOR Najma Pires MD LAB BLOOD ORDERABLES Final Result Performing Organization Address [facility] Co de Phone Number [facility] Department [place] [address] * (ABNORMAL) CBC with auto differential (09/25/2024 10:48 PM STRING WINDING MACHINE OPERATOR) Pathologist [facility] WBC 9.5 3.8 - 9.9 K/cumm Hgb 12.1 11.9 - 15.5 g/dL [facility] Hct 34.4(L) 35.6 - 45.5 % [facility] Plt 81(L) 150 - 400 K/cumm [facility] MPV 12.5(H) 9.1 - 12.3 fL [facility] RBC 3.85(L) 3.90 - 5.20 M/cumm [facility] MCV 89.4 81.3 - 96.4 fL [facility] MCH 31.4 27.1 - 33.3 pg [facility] MCHC 35.2 32.3 - 35.7 g/dL [facility] RDW CV 14.6 11.1 - 14.9 % [facility] RDW SD 46.7 35.7 - 48.1 fL [facility] NRBC abs 0.00 0.00 - 0.01 K/cumm [facility] Blood 09/25/2024 10:4 8 PM STRING WINDING MACHINE OPERATOR 09/26/2024 12:37 AM STRING WINDING MACHINE OPERATOR Najma Pires MD LAB BLOOD ORDERABLES Final Result [facility] Department [place] [address] * (ABNORMAL) Protime-INR (09/25/2024 10:48 PM STRING WINDING MACHINE OPERATOR) Pathologist [facility] PT 15.5(H) 9.7 - 13.0 sec INR 1.42(H) 0.90 - 1.20 [facility] Comment: Interpretive data Oral anticoagulant therapeutic ranges: Venous thromboembolism prophylaxis or treatment: 2.0-3.0 CARDIOLOGY Standard range: 2.0-3.0 High-intensity range: 2.5-3.5 Refer to indication-specific guidelines for appropriate target ranges for prosthetic heart valve replacement. Current interpretive data was last revised on 2019. Blood 09/25/2024 10:4 8 PM STRING WINDING MACHINE OPERATOR 09/26/2024 12:41 AM STRING WINDING MACHINE OPERATOR us Stuart Flores MD LAB BLOOD ORDERABLES Final Resul t [facility] Department [place] [address] * (ABNORMAL) Comprehensive metabolic panel (09/25/2024 10:48 PM STRING WINDING MACHINE OPERATOR) Sodium 140 135 - 145 mmol/L Potassium, pl 2.8(L) 3.3 - 4.9 mmol/L [facility] Chloride 95(L) 97 - 110 mmol/L [facility] CO2 26 22 - 32 mmol/L [facility] Anion gap 19(H) 2 - 15 mmol/L [facility] BUN 89(H) 6 - 25 mg/dL [facility] Creatinine 5.24(H) 0.60 - 1.10 mg/dL [facility] Glucose 323(H) 70 - 199 mg/dL [facility] Comment: Interpretive Data Fasting glucose >/= 126 [...] 2022. Calcium 10.2 8.5 - 10.3 mg/dL [facility] Bilirubin, total 2.1(H) 0.1 - 1.2 mg/dL [facility] Protein, pl 6.7 6.5 - 8.5 g/dL [facility] Albumin 3.9 3.5 - 5.0 g/dL [facility] Alk phos 97 40 - 130 Units/L [facility] ALT 15 7 - 45 Units/L [facility] AST 34 10 - 45 Units/L [facility] Blood 09/25/2024 10:4 8 PM STRING WINDING MACHINE OPERATOR 09/26/2024 12:38 AM STRING WINDING MACHINE OPERATOR Najma Pires MD LAB BLOOD ORDERABLES Final Result Performing Organization Address [facility] Co de Phone Number [facility] [place] [address] * (ABNORMAL) POCT glucose (09/25/2024 8:27 PM STRING WINDING MACHINE OPERATOR) Glucose, POC 318(H) 70 - 199 mg/dL Blood 09/25/2024 8:27 PM STRING WINDING MACHINE OPERATOR 09/25/2024 8:27 PM STRING WINDING MACHINE OPERATOR Stuart Flores MD LAB POCT ORDERABLES - DEVICE Fin al Result Performing Organization Address [facility] de Phone Number [facility] [place] [address] * (ABNORMAL) POCT glucose (09/25/2024 6:12 PM STRING WINDING MACHINE OPERATOR) Glucose, POC 288(H) 70 - 199 mg/dL Blood 09/25/2024 6:12 PM STRING WINDING MACHINE OPERATOR 09/25/2024 6:12 PM STRING WINDING MACHINE OPERATOR Stuart Flores MD LAB POCT ORDERABLES - DEVICE Fin al Result Performing Organization Address [facility] Co de Phone Number [facility] [place] [address] * (ABNORMAL) POCT glucose (09/25/2024 4:12 PM STRING WINDING MACHINE OPERATOR) Glucose, POC 263(H) 70 - 199 mg/dL Blood 09/25/2024 4:12 PM STRING WINDING MACHINE OPERATOR 09/25/2024 4:12 PM STRING WINDING MACHINE OPERATOR us Stuart Flores MD LAB POCT ORDERABLES - DEVICE Fin al Result Performing Organization Address [facility] Co de Phone Number [facility] [place] [address] * (ABNORMAL) Lactate (09/25/2024 3:24 PM STRING WINDING MACHINE OPERATOR) Pathologist [facility] Lactate 4.9(C) 0.7 - 2.0 mmol/L Blood 09/25/2024 3:24 PM STRING WINDING MACHINE OPERATOR 09/25/2024 3:54 PM STRING WINDING MACHINE OPERATOR us Stuart Flores MD LAB BLOOD ORDERABLES Final Resul t Performing Organization Address [facility] Co de Phone Number [facility] [place] [address] * Critical Result Callback Chemistry (09/25/2024 3:24 PM STRING WINDING MACHINE OPERATOR) Pathologist [facility] Date Notified [id number] Time Notified [facility] TestName Lactate CHARISSA DUNNE Called/Read Back Javier [facility] Credentials RN CHARISSA DUNNE Called By MARTHA DUNNE Blood 09/25/2024 3:24 PM STRING WINDING MACHINE OPERATOR 09/25/2024 3:54 PM STRING WINDING MACHINE OPERATOR us Stuart Flores MD LAB BLOOD ORDERABLES Final Resul t Performing Organization Address [facility] [place] [address] * Urinalysis reflex to microscopic and culture Urine (09/25/2024 3:24 PM STRING WINDING MACHINE OPERATOR) Pathologist [facility] Color, ur Yellow Yellow Clarity, ur Clear Clear [facility] Specific gravity, ur 1.017 1.003 - 1.030 [facility] pH, urine 5.5 [facility] Comment: Interpretive Data U rine pH is affected by diet, medications, systemic acid-base disturbances, and renal tubular function. pH may affect urinary stone formation. For example, urine pH below 6.0 may help reduce the tendency for calcium phosphate stones and pH greater than 6.0 may reduce the tendency for uric acid stone formation. Source: [facility] Current Interpretive Data was last revised on 2017 Protein, ur ql Negative Negative [facility] Glucose, ur ql Negative Negative [facility] Ketones, ur Negative Negative [facility] Bilirubin, ur Negative Negative [facility] Blood, ur Negative Negative [facility] Urobilinogen, ur <2.0 <2.0 mg/dL [facility] Nitrite, ur Negative Negative [facility] Leukocyte esterase, ur Negative Negative [facility] UA reflex comment Reflex conditions for microscopic UA and culture not met. [facility] Urine 09/25/2024 3:24 PM STRING WINDING MACHINE OPERATOR 09/25/2024 3:42 PM STRING WINDING MACHINE OPERATOR us Britany Knight MD LAB MICROBIOLOGY - GENERAL ORD ERABLES Final Result Performing Organization Address City/[facility]/ZIP Co de Phone Number [facility] [place] [address] * Sodium, urine, random (09/25/2024 3:24 PM STRING WINDING MACHINE OPERATOR) Sodium, ur 31 mmol/L Comment: Interpretive Data No reference range established. Current interpretive data was last revised 2018. Urine 09/25/2024 3:24 PM STRING WINDING MACHINE OPERATOR 09/25/2024 3:54 PM STRING WINDING MACHINE OPERATOR us Najma Pires MD LAB URINE ORDERABLES Final Result Performing Organization Address [facility]/ZIP Co de Phone Number [facility] [place] [address] * (ABNORMAL) POCT glucose (09/25/2024 2:41 PM STRING WINDING MACHINE OPERATOR) Glucose, POC 315(H) 70 - 199 mg/dL Blood 09/25/2024 2:41 PM STRING WINDING MACHINE OPERATOR 09/25/2024 2:41 PM STRING WINDING MACHINE OPERATOR us Stuart Flores MD LAB POCT ORDERABLES - DEVICE Fin al Result Performing Organization Address [facility] Co de Phone Number [facility] Department [place] [address] * (ABNORMAL) POCT glucose (09/25/2024 12:32 PM STRING WINDING MACHINE OPERATOR) Pathologist [facility] Glucose, POC 343(H) 70 - 199 mg/dL Blood 09/25/2024 12:3 2 PM STRING WINDING MACHINE OPERATOR 09/25/2024 12:32 PM STRING WINDING MACHINE OPERATOR Result [facility] Stuart Flores MD LAB POCT ORDERABLES - DEVICE Fin al Result Performing Organization Address [facility] de Phone Number [facility] [place] [address] * (ABNORMAL) Troponin I high-sensitivity 4-hour (09/25/2024 11:38 AM STRING WINDING MACHINE OPERATOR) Pathologist [facility] Trop I hs 80(H) <=17 ng/L Comment: Interpretive Data For further hscTnI resources including the diagnostic algorithm and an aid in interpretation, copy and paste this link: https://bjhlab.testcatalog.org/show/[email or web address] Current Interpretive Data last revised 2020. Trop I hs delta 6 ng/L [facility] Trop I hs interp Equivocal [facility] Blood 09/25/2024 11:3 8 AM STRING WINDING MACHINE OPERATOR 09/25/2024 12:27 PM STRING WINDING MACHINE OPERATOR us Stuart Flores MD LAB BLOOD ORDERABLES Final Resul t Performing Organization Address [facility] Co de Phone Number [facility] [place] [address] * (ABNORMAL) POCT glucose (09/25/2024 11:14 AM STRING WINDING MACHINE OPERATOR) Glucose, POC 312(H) 70 - 199 mg/dL Blood 09/25/2024 11:1 4 AM STRING WINDING MACHINE OPERATOR 09/25/2024 11:14 AM STRING WINDING MACHINE OPERATOR Stuart Flores MD LAB POCT ORDERABLES - DEVICE Fin al Result Performing Organization Address City/[facility]/ZIP Co de Phone Number [facility] [place] [address] * (ABNORMAL) Troponin I high-sensitivity 2-hour (09/25/2024 9:51 AM STRING WINDING MACHINE OPERATOR) Pathologist [facility] Trop I hs 62(H) <=17 ng/L Comment: Previous critical value noted within 48 hours ago. Interpretive Data For further hscTnI resources including the diagnostic algorithm and an aid in interpretation, copy and paste this link: https://bjhlab.testcatalog.org/show/hsTrop-[email or web address] Current Interpretive Data last revised 2020. Trop I hs delta -12(C) ng/L [facility] Trop I hs interp Significa nt(C) [facility] Blood 09/25/2024 9:51 AM STRING WINDING MACHINE OPERATOR 09/25/2024 10:22 AM STRING WINDING MACHINE OPERATOR Stuart Flores MD LAB BLOOD ORDERABLES Final Resul t Performing Organization Address City/[facility]/ZIP Co de Phone Number [facility] One [facility] Department [place] [address] * Critical result callback Cardio chemistry (09/25/2024 9:51 AM STRING WINDING MACHINE OPERATOR) Date Notified [id number] Time Notified 1105 [facility] Test name Trop I hs 2hr CHARISSA DUNNE Called/Read Back Javier CARRINGTON [facility] Credentials RN CHARISSA [facility] Called By PD [facility] Blood 09/25/2024 9:51 AM STRING WINDING MACHINE OPERATOR 09/25/2024 10:22 AM STRING WINDING MACHINE OPERATOR us Stuart Flores MD LAB BLOOD ORDERABLES Final Resul t Performing Organization Address [facility] de Phone Number [facility] Department [place] [address] * (ABNORMAL) POCT glucose (09/25/2024 9:19 AM STRING WINDING MACHINE OPERATOR) [facility] Glucose, POC 260(H) 70 - 199 mg/dL Blood 09/25/2024 9:19 AM STRING WINDING MACHINE OPERATOR 09/25/2024 9:19 AM STRING WINDING MACHINE OPERATOR Result Anitha Flores MD LAB POCT ORDERABLES - DEVICE Fin al Result Performing Organization Address [facility] Phone Number [facility] Department [place] [address] * (ABNORMAL) Troponin I high-sensitivity series (baseline, 2hr, 4hr, 6hr) (09/25/2024 7:44 AM STRING WINDING MACHINE OPERATOR) [facility] Trop I hs 74(H) <=17 ng/L Comment: Interpretive Data For further hscTnI resources including the diagnostic algorithm and an aid in interpretation, copy and paste this link: https://bjhlab.testcatalog.org/show/hsTrop-[email or web address] Current Interpretive Data last revised 2020. Blood 09/25/2024 7:44 AM STRING WINDING MACHINE OPERATOR 09/25/2024 7:57 AM STRING WINDING MACHINE OPERATOR us Stuart Flores MD LAB BLOOD ORDERABLES Final Resul t Performing Organization Address [facility] de Phone Number [facility] Department [place] [address] * (ABNORMAL) Lactate (09/25/2024 7:44 AM STRING WINDING MACHINE OPERATOR) Lactate 3.6(H) 0.7 - 2.0 mmol/L Blood 09/25/2024 7:44 AM STRING WINDING MACHINE OPERATOR 09/25/2024 7:57 AM STRING WINDING MACHINE OPERATOR us Stuart Flores MD LAB BLOOD ORDERABLES Final Resul t Performing Organization Address [facility] Co de Phone Number [facility] [place] [address] * (ABNORMAL) POCT glucose (09/25/2024 7:32 AM STRING WINDING MACHINE OPERATOR) Glucose, POC 311(H) 70 - 199 mg/dL Blood 09/25/2024 7:32 AM STRING WINDING MACHINE OPERATOR 09/25/2024 7:32 AM STRING WINDING MACHINE OPERATOR us Stuart Flores MD LAB POCT ORDERABLES - DEVICE Fin al Result Performing Organization Address [facility] de Phone Number [facility] [place] [address] * (ABNORMAL) POCT glucose (09/25/2024 4:12 AM STRING WINDING MACHINE OPERATOR) Glucose, POC 334(H) 70 - 199 mg/dL Blood 09/25/2024 4:12 AM STRING WINDING MACHINE OPERATOR 09/25/2024 4:12 AM STRING WINDING MACHINE OPERATOR us Stuart Flores MD LAB POCT ORDERABLES - DEVICE Fin al Result Performing Organization Address [facility] de Phone Number [facility] [place] [address] * (ABNORMAL) POCT glucose (09/25/2024 2:52 AM STRING WINDING MACHINE OPERATOR) Glucose, POC 360(H) 70 - 199 mg/dL Blood 09/25/2024 2:52 AM STRING WINDING MACHINE OPERATOR 09/25/2024 2:52 AM STRING WINDING MACHINE OPERATOR us Stuart Flores MD LAB POCT ORDERABLES - DEVICE Fin al Result [facility] Department [place] [address] * XR Abdomen Ap 1 Vw (09/25/2024 1:32 AM STRING WINDING MACHINE OPERATOR) Anatomical Region Laterality Modality Body, Abdomen N/A Digital Radiogra phy 09/25/2024 8:29 AM STRING WINDING MACHINE OPERATOR Impressions 09/25/2024 4:40 PM STRING WINDING MACHINE OPERATOR Gastric tube tip coils over the fundus [...] Nessa Dodson M.D. Narrative 09/25/2024 4:40 PM STRING WINDING MACHINE OPERATOR EXAMINATION: Abdomen, one view. HISTORY: Intubation of [...] * (ABNORMAL) POCT glucose (09/25/2024 12:11 AM STRING WINDING MACHINE OPERATOR) Glucose, POC 390(H) 70 - 199 mg/dL Comment:Glu2: RN/MD Notified Glucose comment 1 Glu2: RN/MD Notified [facility] Blood 09/25/2024 12:1 1 AM STRING WINDING MACHINE OPERATOR 09/25/2024 12:11 AM STRING WINDING MACHINE OPERATOR Stuart Flores MD LAB POCT ORDERABLES - DEVICE Fin al Result Performing Organization Address [facility] Co de Phone Number [facility] Department [place] [address] * (ABNORMAL) Troponin I high-sensitivity 6-hour (09/24/2024 11:56 PM STRING WINDING MACHINE OPERATOR) Trop I hs 57(H) <=17 ng/L Comment: Interpretive Data For further [facility] resources including the diagnostic algorithm and an aid in interpretation, copy and paste this link: https://bjhlab.testcatalog.org/show/hsTrop-[email or web address] Current Interpretive Data last revised 2020. Trop I hs delta See Comment ng/L [facility] Comment:Inappropriate collec tion time to report a delta. Trop I hs pct delta See Comment % [facility] Comment:Inappropriate collec tion time to report a delta. Trop I hs interp See Comment [facility] Comment:Inappropriate collec tion time to report a delta. Blood 09/24/2024 11:5 6 PM STRING WINDING MACHINE OPERATOR 09/25/2024 12:10 AM STRING WINDING MACHINE OPERATOR Result [facility] Britany Knight MD LAB BLOOD ORDERABLES Final Res ult Performing Organization Address [facility]/ZIP Co de Phone Number [facility] Department [place] [address] * (ABNORMAL) eGFR (09/24/2024 11:56 PM STRING WINDING MACHINE OPERATOR) Pathologist [facility] eGFR 13(L) >=60 mL/min/1. 73 m2 Comment: [...] reviewed 2021. Blood 09/24/2024 11:5 6 PM STRING WINDING MACHINE OPERATOR 09/25/2024 12:21 AM STRING WINDING MACHINE OPERATOR us Najma Pires MD LAB BLOOD ORDERABLES Final Result [facility] One [facility] Department [place] [address] * (ABNORMAL) Differential, auto (09/24/2024 11:56 PM STRING WINDING MACHINE OPERATOR) Pathologist [facility] Neutrophil abs 12.8(H) 1.5 - 6.5 K/cumm Imm gran abs 0.1 0.0 - 0.1 K/cumm [facility] Lymphocyte abs 0.9 0.8 - 3.3 K/cumm [facility] Monocyte abs 1.2(H) 0.2 - 0.8 K/cumm [facility] Eosinophil abs 0.1 0.0 - 0.5 K/cumm [facility] Basophil abs 0.0 0.0 - 0.1 K/cumm [facility] Neutrophil pct 84.6 % [facility] Comment: Interpretive Data Percent cell count reference ranges are not reported, since discordance with absolute values may lead to misinterpretation of CBC data. Current Interpretive Data was last revised on 2017. Imm gran pct 0.5 % [facility] Comment: Interpretive Data Percent cell count reference ranges are not reported, since discordance with absolute values may lead to misinterpretation of CBC data. Current Interpretive Data was last revised on 2017. Lymphocyte pct 6.1 % [facility] Comment: Interpretive Data Percent cell count reference ranges are not reported, since discordance with absolute values may lead to misinterpretation of CBC data. Current Interpretive Data was last revised on 2017. Monocyte pct 7.6 % [facility] Comment: Interpretive Data Percent cell count reference ranges are not reported, since discordance with absolute values may lead to misinterpretation of CBC data. Current Interpretive Data was last revised on 2017. Eosinophil pct 0.9 % [facility] Comment: Interpretive Data Percent cell count reference ranges are not reported, since discordance with absolute values may lead to misinterpretation of CBC data. Current Interpretive Data was last revised on 2017. Basophil pct 0.3 % [facility] Comment: Interpretive Data Percent cell count reference ranges are not reported, since discordance with absolute values may lead to misinterpretation of CBC data. Current Interpretive Data was last revised on 2017. Blood 09/24/2024 11:5 6 PM STRING WINDING MACHINE OPERATOR 09/25/2024 12:10 AM STRING WINDING MACHINE OPERATOR us Najma Pires MD LAB BLOOD ORDERABLES Final Result [facility] One [facility] [place] [address] * (ABNORMAL) CBC with auto differential (09/24/2024 11:56 PM STRING WINDING MACHINE OPERATOR) WBC 15.1(H) 3.8 - 9.9 K/cumm Hgb 15.3 11.9 - 15.5 g/dL [facility] Hct 42.8 35.6 - 45.5 % [facility] Plt 93(L) 150 - 400 K/cumm [facility] MPV 12.4(H) 9.1 - 12.3 fL [facility] RBC 4.80 3.90 - 5.20 M/cumm [facility] MCV 89.2 81.3 - 96.4 fL [facility] MCH 31.9 27.1 - 33.3 pg [facility] MCHC 35.7 32.3 - 35.7 g/dL [facility] RDW CV 14.4 11.1 - 14.9 % [facility] RDW SD 46.5 35.7 - 48.1 fL [facility] NRBC abs 0.00 0.00 - 0.01 K/cumm [facility] Blood 09/24/2024 11:5 6 PM STRING WINDING MACHINE OPERATOR 09/25/2024 12:10 AM STRING WINDING MACHINE OPERATOR us Najma Pires MD LAB BLOOD ORDERABLES Final Result [facility] One [facility] Department [place] [address] * [id number], Tumor Marker (09/24/2024 11:56 PM STRING WINDING MACHINE OPERATOR) alpha Fetoprotein <2.0 <=8.3 ng/mL Comment: Interpretive [...] 2018;[id number] Katya House et al. Clin Chem 2014;[id number]. Current interpretive data was last revised 2022. Blood 09/24/2024 11:5 6 PM STRING WINDING MACHINE OPERATOR 09/25/2024 12:09 AM STRING WINDING MACHINE OPERATOR Najma Pires MD LAB BLOOD ORDERABLES Final Result Performing Organization Address [facility] Co de Phone Number [facility] Department [place] [address] * (ABNORMAL) Protime-INR (09/24/2024 11:56 PM STRING WINDING MACHINE OPERATOR) PT 14.3(H) 9.7 - 13.0 sec INR 1.32(H) 0.90 - 1.20 [facility] Comment: Interpretive data Oral anticoagulant therapeutic ranges: Venous thromboembolism prophylaxis or treatment: 2.0-3.0 CARDIOLOGY Standard range: 2.0-3.0 High-intensity range: 2.5-3.5 Refer to indication-specific guidelines for appropriate target ranges for prosthetic heart valve replacement. Current interpretive data was last revised on 2019. Blood 09/24/2024 11:5 6 PM STRING WINDING MACHINE OPERATOR 09/25/2024 12:15 AM STRING WINDING MACHINE OPERATOR Stuart Flores MD LAB BLOOD ORDERABLES Final Resul t Performing Organization Address [facility] Co de Phone Number [facility] Department [place] [address] * (ABNORMAL) Phosphorus (09/24/2024 11:56 PM STRING WINDING MACHINE OPERATOR) Phosphorus, pl 6.9(H) 2.3 - 4.5 mg/dL Blood 09/24/2024 11:5 6 PM STRING WINDING MACHINE OPERATOR 09/25/2024 12:07 AM STRING WINDING MACHINE OPERATOR Najma Pires MD LAB BLOOD ORDERABLES Final Result Performing Organization Address [facility] Co de Phone Number [facility] [place] [address] * Magnesium (09/24/2024 11:56 PM STRING WINDING MACHINE OPERATOR) Pathologist [facility] Magnesium 2.4 1.4 - 2.5 mg/dL Blood 09/24/2024 11:5 6 PM STRING WINDING MACHINE OPERATOR 09/25/2024 12:21 AM STRING WINDING MACHINE OPERATOR us Stuart Flores MD LAB BLOOD ORDERABLES Final Resul t [facility] One [facility] Department [place] [address] * (ABNORMAL) Comprehensive metabolic panel (09/24/2024 11:56 PM STRING WINDING MACHINE OPERATOR) Pathologist [facility] Sodium 136 135 - 145 mmol/L Potassium, pl 3.5 3.3 - 4.9 mmol/L [facility] Chloride 92(L) 97 - 110 mmol/L [facility] CO2 25 22 - 32 mmol/L [facility] Anion gap 19(H) 2 - 15 mmol/L [facility] BUN 77(H) 6 - 25 mg/dL [facility] Creatinine 3.63(H) 0.60 - 1.10 mg/dL [facility] Glucose 410(H) 70 - 199 mg/dL [facility] Comment: Interpretive Data Fasting glucose >/= 126 [...] 2022. Calcium 10.6(H) 8.5 - 10.3 mg/dL [facility] Bilirubin, total 2.3(H) 0.1 - 1.2 mg/dL [facility] Protein, pl 7.0 6.5 - 8.5 g/dL [facility] Albumin 3.3(L) 3.5 - 5.0 g/dL [facility] Alk phos 122 40 - 130 Units/L [facility] ALT 21 7 - 45 Units/L [facility] AST 47(H) 10 - 45 Units/L [facility] Blood 09/24/2024 11:5 6 PM STRING WINDING MACHINE OPERATOR 09/25/2024 12:07 AM STRING WINDING MACHINE OPERATOR Najma Pires MD LAB BLOOD ORDERABLES Final Result Performing Organization Address City/[facility]/ZIP Co de Phone Number [facility] [place] [address] * (ABNORMAL) Sepsis Lactate w/ Reflex (09/24/2024 11:55 PM STRING WINDING MACHINE OPERATOR) Sepsis Lactate 5.1(C) 0.7 - 2.0 mmol/L Blood 09/24/2024 11:5 5 PM STRING WINDING MACHINE OPERATOR 09/25/2024 12:16 AM STRING WINDING MACHINE OPERATOR Britany Knight MD LAB BLOOD ORDERABLES Final Res ult Performing Organization Address [facility] Co de Phone Number [facility] Department [place] [address] * Critical Result Callback Chemistry (09/24/2024 11:55 PM STRING WINDING MACHINE OPERATOR) Date Notified 20240925 Time Notified 38 [facility] TestName Sepsis Lactate [facility] Called/Read Back Katia Loco [facility] Credentials RN CHARISSA [facility] Called By SHASTA CARRINGTON [facility] Blood 09/24/2024 11:5 5 PM STRING WINDING MACHINE OPERATOR 09/25/2024 12:16 AM STRING WINDING MACHINE OPERATOR Britany Kinght MD LAB BLOOD ORDERABLES Final Res ult Performing Organization Address [facility]/ZIP Co de Phone Number [facility] Department [place] [address] * (ABNORMAL) POCT glucose (09/24/2024 11:08 PM STRING WINDING MACHINE OPERATOR) Glucose, POC 363(H) 70 - 199 mg/dL Blood 09/24/2024 11:0 8 PM STRING WINDING MACHINE OPERATOR 09/24/2024 11:08 PM STRING WINDING MACHINE OPERATOR us Stuart Flores MD LAB POCT ORDERABLES - DEVICE Fin al Result CHARISSA [facility] Department [place] [address] * XR Chest 1 View (09/24/2024 11:02 PM STRING WINDING MACHINE OPERATOR) Anatomical Region Laterality Modality Body, Chest N/A Computed Radiogr aphy 09/25/2024 10:0 6 AM STRING WINDING MACHINE OPERATOR Impressions 09/25/2024 10:06 AM STRING WINDING MACHINE OPERATOR Comparison is made to prior from 09/24/2024. Nasogastric tube terminates below the diaphragms. Heart size is normal. Lungs are clear. No pleural effusion or pneumothorax. Electronically signed by: Louie Lynne M.D. Narrative 09/25/2024 10:06 AM STRING WINDING MACHINE OPERATOR EXAMINATION: 1 view chest radiograph Procedure Note [...] US Liver Doppler Complete (09/24/2024 9:07 PM STRING WINDING MACHINE OPERATOR) Anatomical Region Laterality Modality Vascular N/A Ultrasound 09/25/2024 8:56 AM STRING WINDING MACHINE OPERATOR Impressions 09/25/2024 12:48 PM STRING WINDING MACHINE OPERATOR 1. Reversed flow within the portosystemic confluence, [...] Juan Morris M.D. Narrative 09/25/2024 12:48 PM STRING WINDING MACHINE OPERATOR EXAMINATION: US LIVER DOPPLER COMPLETE HISTORY: 63 old female, VELASCO cirrhosis, currently under evaluation for transplant. COMPARISON: [...] LIVER DOPPLER COMPLETE HISTORY: 63 old female, VELASCO cirrhosis, currently under evaluation for transplant. COMPARISON: [...] * (ABNORMAL) POCT glucose (09/24/2024 8:08 PM STRING WINDING MACHINE OPERATOR) Glucose, POC 384(H) 70 - 199 mg/dL Comment:Glu2: RN/ Notified Glucose comment 1 Glu2: TYRA/ Notified CHARISSA DUNNE Blood 09/24/2024 8:08 PM STRING WINDING MACHINE OPERATOR 09/24/2024 8:08 PM STRING WINDING MACHINE OPERATOR Stuart Flores MD LAB POCT ORDERABLES - DEVICE Fin al Result [facility] One [facility] Department [place] [address] * MD CRITICAL CARE ILL/INJURED PATIENT INIT 30-74 MIN (09/24/2024 4:23 PM STRING WINDING MACHINE OPERATOR) Narrative Paxton Hawk MD - 09/24/2024 4:23 PM STRING WINDING MACHINE OPERATOR Paxton Hawk MD 09/24/2024 4:25 PM Critical [...] Sepsis Lactate w/ Reflex (09/24/2024 2:37 PM STRING WINDING MACHINE OPERATOR) Sepsis Lactate 4.1(C) 0.7 - 2.0 mmol/L Comment:reviewed Blood 09/24/2024 2:37 PM STRING WINDING MACHINE OPERATOR 09/24/2024 2:44 PM STRING WINDING MACHINE OPERATOR us Britany Knight MD LAB BLOOD ORDERABLES Final Res ult [facility] One [facility] Department [place] [address] * Critical Result Callback Chemistry (09/24/2024 2:37 PM STRING WINDING MACHINE OPERATOR) Date Notified 20240924 Time Notified 1451 CHARISSA [facility] TestName Sepsis Lactate CHARISSA [facility] Called/Read Back Britany Knight [facility] Credentials RN CHARISSA [facility] Called By ra CARRINGTON [facility] Blood 09/24/2024 2:37 PM STRING WINDING MACHINE OPERATOR 09/24/2024 2:44 PM STRING WINDING MACHINE OPERATOR us Britany Knight MD LAB BLOOD ORDERABLES Final Res ult [facility] [place] [address] * (ABNORMAL) Troponin I high-sensitivity 2-hour (09/24/2024 2:36 PM STRING WINDING MACHINE OPERATOR) Trop I hs 26(H) <=17 ng/L Comment: Interpretive Data For further hscTnI resources including the diagnostic algorithm and an aid in interpretation, copy and paste this link: https://bjhlab.testcatalog.org/show/hsTrop-1 Current Interpretive Data last revised 2020. Trop I hs delta 2 ng/L [facility] Trop I hs interp Insignificant [facility] Blood 09/24/2024 2:36 PM STRING WINDING MACHINE OPERATOR 09/24/2024 3:01 PM STRING WINDING MACHINE OPERATOR us Britany Knight MD LAB BLOOD ORDERABLES Final Res ult [facility] One [facility] Department [place] [address] * Blood culture Blood (09/24/2024 2:36 PM STRING WINDING MACHINE OPERATOR) Report Final Report: No growth Blood 09/24/2024 2:36 PM STRING WINDING MACHINE OPERATOR 09/24/2024 2:44 PM STRING WINDING MACHINE OPERATOR Narrative [facility] - 09/29/2024 3:10 PM STRING WINDING MACHINE OPERATOR Collection->Peripheral 1. Blood cultures are incubated for [...] performance characteristics have been verified by the [facility] Microbiology Laboratory. For questions about this culture, contact the Microbiology Laboratory at [phone]. Interpretive data was last revised on 24. Britany Knight MD LAB MICROBIOLOGY - GENERAL ORD ERABLES Final Result [facility] One [facility] Department [place] [address] * Respiratory pathogen panel Nasopharyngeal (09/24/2024 1:39 PM STRING WINDING MACHINE OPERATOR) Influenza A RNA Not Detected Not Detected Influenza B RNA Not Detected Not Detected [facility] RSV RNA Not Detected Not Detected [facility] COVID-19 RNA Not Detected Not Detected [facility] Coronavirus 229E RNA Not Detected Not Detected [facility] Coronavirus HKU1 RNA Not Detected Not Detected [facility] Coronavirus NL63 RNA Not Detected Not Detected [facility] Coronavirus OC43 RNA Not Detected Not Detected [facility] Adenovirus DNA Not Detected Not Detected [facility] Metapneumovirus RNA Not Detected Not Detected [facility] Rhinovirus/Enterov irus RNA Not Detected Not Detected [facility] Parainfluenza 1 RNA Not Detected Not Detected [facility] Parainfluenza 2 RNA Not Detected Not Detected [facility] Parainfluenza 3 RNA Not Detected Not Detected [facility] Parainfluenza 4 RNA Not Detected Not Detected [facility] B. pertussis DNA Not Detected Not Detected [facility] B. parapertussis DNA Not Detected Not Detected [facility] C. pneumoniae DNA Not Detected Not Detected [facility] M. pneumoniae DNA Not Detected Not Detected [facility] Nasopharyngeal 09/24/2024 1: 39 PM STRING WINDING MACHINE OPERATOR 09/24/2024 1:49 PM STRING WINDING MACHINE OPERATOR Narrative [facility] - 09/24/2024 3:12 PM STRING WINDING MACHINE OPERATOR Is the Patient experiencing symptoms consistent with COVID?->Yes Surveillance testing for transplant patient?->No Interpretive Data The [employer] Respiratory Panel (RP2.1) assay is a [...] assay has FDA clearance for testing of NEONATAL NURSE PRACTITIONER swabs. The performance of additional specimen types has been assessed by the performing laboratory. The performance characteristics of this assay have been determined by [facility] Molecular Infectious Disease Laboratory. Current interpretive data was last revised on 22. Britany Knight MD LAB MICROBIOLOGY - GENERAL ORD ERABLES Final Result [facility] D[facility]NE [facility] [facility] Department [place] [address] * Blood culture Blood (09/24/2024 1:39 PM STRING WINDING MACHINE OPERATOR) Report Final Report: No growth Blood 09/24/2024 1:39 PM STRING WINDING MACHINE OPERATOR 09/24/2024 1:50 PM STRING WINDING MACHINE OPERATOR Narrative [facility] - 09/29/2024 3:05 PM STRING WINDING MACHINE OPERATOR Collection->Peripheral 1. Blood cultures are incubated for [...] performance characteristics have been verified by the [facility] Microbiology Laboratory. For questions about this culture, contact the Microbiology Laboratory at [phone]. Interpretive data was last revised on 24. Britany Knight MD LAB MICROBIOLOGY - GENERAL ORD ERABLES Final Result [facility] Ivan [facility] Department [place] [address] * XR Chest 1 Vw Portable (09/24/2024 12:59 PM STRING WINDING MACHINE OPERATOR) Anatomical Region Laterality Modality Body, Chest N/A Computed Radiogr aphy 09/24/2024 1:05 PM STRING WINDING MACHINE OPERATOR Impressions 09/24/2024 1:05 PM STRING WINDING MACHINE OPERATOR Comparison April 2024. Small lung volumes with mild scattered atelectasis throughout the lung. Given some limitations of portable technique, No focal consolidation suspicious for pneumonia. No pulmonary edema, pleural effusion, or pneumothorax. The heart and mediastinal contours are unchanged. Electronically signed by: Mohinder Ferro M.D. Narrative 09/24/2024 1:05 PM STRING WINDING MACHINE OPERATOR EXAMINATION: 1 view chest radiograph Procedure Note [...] * POCT ketone, blood (09/24/2024 12:40 PM STRING WINDING MACHINE OPERATOR) Beta-Hydroxybut yrate, POC 0.4 0.0 - 0.5 mmol/L Blood 09/24/2024 12:4 0 PM STRING WINDING MACHINE OPERATOR 09/24/2024 12:40 PM STRING WINDING MACHINE OPERATOR Stuart Flores MD LAB POCT ORDERABLES - DEVICE Fin al Result Performing Organization Address [facility] Co de Phone Number [facility] [place] [address] * (ABNORMAL) POCT glucose (09/24/2024 12:37 PM STRING WINDING MACHINE OPERATOR) Pathologist [facility] Glucose, POC 329(H) 70 - 199 mg/dL Blood 09/24/2024 12:3 7 PM STRING WINDING MACHINE OPERATOR 09/24/2024 12:37 PM STRING WINDING MACHINE OPERATOR Louie Malone MD LAB POCT ORDERABLES - DEVICE Final Result Performing Organization Address [facility] de Phone Number [facility] [place] [address] * (ABNORMAL) Troponin I high-sensitivity series (baseline, 2hr, 4hr, 6hr) (09/24/2024 12:35 PM STRING WINDING MACHINE OPERATOR) Pathologist [facility] Trop I hs 24(H) <=17 ng/L Comment: Interpretive Data For further hscTnI resources including the diagnostic algorithm and an aid in interpretation, copy and paste this link: [email or web address]/[email or web address] Current Interpretive Data last revised 2020. Blood 09/24/2024 12:3 5 PM STRING WINDING MACHINE OPERATOR 09/24/2024 12:59 PM STRING WINDING MACHINE OPERATOR us Britany Knight MD LAB BLOOD ORDERABLES Final Res ult Performing Organization Address [facility] Co de Phone Number [facility] [place] [address] * (ABNORMAL) Sepsis Lactate w/ Reflex (09/24/2024 12:35 PM STRING WINDING MACHINE OPERATOR) Pathologist [facility] Sepsis Lactate 4.4(C) 0.7 - 2.0 mmol/L Blood 09/24/2024 12:3 5 PM STRING WINDING MACHINE OPERATOR 09/24/2024 12:48 PM STRING WINDING MACHINE OPERATOR Britany Knight MD LAB BLOOD ORDERABLES Final Res ult Performing Organization Address [facility] Co de Phone Number CHARISSA [facility] [place] [address] * (ABNORMAL) eGFR (09/24/2024 12:35 PM STRING WINDING MACHINE OPERATOR) eGFR 18(L) >=60 mL/min/1. 73 m2 Comment: [...] reviewed 2021. Blood 09/24/2024 12:3 5 PM STRING WINDING MACHINE OPERATOR 09/24/2024 12:59 PM STRING WINDING MACHINE OPERATOR Britany Knight MD LAB BLOOD ORDERABLES Final Res ult Performing Organization Address City/[facility]/ZIP Co de Phone Number CHARISSA [facility] Department [place] [address] * Differential, auto (09/24/2024 12:35 PM STRING WINDING MACHINE OPERATOR) Neutrophil abs 5.4 1.5 - 6.5 K/cumm Imm gran abs 0.0 0.0 - 0.1 K/cumm [facility] Lymphocyte abs 0.9 0.8 - 3.3 K/cumm [facility] Monocyte abs 0.6 0.2 - 0.8 K/cumm [facility] Eosinophil abs 0.2 0.0 - 0.5 K/cumm [facility] Basophil abs 0.0 0.0 - 0.1 K/cumm [facility] Neutrophil pct 74.8 % [facility] Comment: Interpretive Data Percent cell count reference ranges are not reported, since discordance with absolute values may lead to misinterpretation of CBC data. Current Interpretive Data was last revised on 2017. Imm gran pct 0.6 % [facility] Comment: Interpretive Data Percent cell count reference ranges are not reported, since discordance with absolute values may lead to misinterpretation of CBC data. Current Interpretive Data was last revised on 2017. Lymphocyte pct 12.7 % [facility] Comment: Interpretive Data Percent cell count reference ranges are not reported, since discordance with absolute values may lead to misinterpretation of CBC data. Current Interpretive Data was last revised on 2017. Monocyte pct 8.7 % [facility] Comment: Interpretive Data Percent cell count reference ranges are not reported, since discordance with absolute values may lead to misinterpretation of CBC data. Current Interpretive Data was last revised on 2017. Eosinophil pct 2.9 % [facility] Comment: Interpretive Data Percent cell count reference ranges are not reported, since discordance with absolute values may lead to misinterpretation of CBC data. Current Interpretive Data was last revised on 2017. Basophil pct 0.3 % [facility] Comment: Interpretive Data Percent cell count reference ranges are not reported, since discordance with absolute values may lead to misinterpretation of CBC data. Current Interpretive Data was last revised on 2017. Blood 09/24/2024 12:3 5 PM STRING WINDING MACHINE OPERATOR 09/24/2024 12:59 PM STRING WINDING MACHINE OPERATOR us Britany Knight MD LAB BLOOD ORDERABLES Final Res ult [facility] Department [place] [address] * Critical Result Callback Chemistry (09/24/2024 12:35 PM STRING WINDING MACHINE OPERATOR) Date Notified [id number] Time Notified 1253 [facility] TestName Sepsis Lactate [facility] Called/Read Back Lauren Rand [facility] Credentials RN [facility] Called By kati [facility] Blood 09/24/2024 12:3 5 PM STRING WINDING MACHINE OPERATOR 09/24/2024 12:48 PM STRING WINDING MACHINE OPERATOR Britany Knight MD LAB BLOOD ORDERABLES Final Res ult [facility] One [facility] Department [place] [address] * (ABNORMAL) CBC with auto differential (09/24/2024 12:35 PM STRING WINDING MACHINE OPERATOR) [facility] WBC 7.2 3.8 - 9.9 K/cumm Hgb 14.7 11.9 - 15.5 g/dL [facility] Hct 42.0 35.6 - 45.5 % [facility] Plt 101(L) 150 - 400 K/cumm [facility] MPV 12.0 9.1 - 12.3 fL [facility] RBC 4.72 3.90 - 5.20 M/cumm [facility] MCV 89.0 81.3 - 96.4 fL [facility] MCH 31.1 27.1 - 33.3 pg [facility] MCHC 35.0 32.3 - 35.7 g/dL [facility] RDW CV 14.5 11.1 - 14.9 % [facility] RDW SD 46.3 35.7 - 48.1 fL [facility] NRBC abs 0.00 0.00 - 0.01 K/cumm [facility] Blood 09/24/2024 12:3 5 PM STRING WINDING MACHINE OPERATOR 09/24/2024 12:59 PM STRING WINDING MACHINE OPERATOR Britany Knight MD LAB BLOOD ORDERABLES Final Res ult Performing Organization Address [facility] de Phone Number [facility] [place] [address] * aPTT (09/24/2024 12:35 PM STRING WINDING MACHINE OPERATOR) aPTT 33 28 - 38 sec Comment: Interpretive Data Heparin therapeutic range: 66.0 - 100.0 seconds. Range based on correlation with therapeutic heparin activity range of 0.3 - 0.7 Units/mL. Current interpretive data was last revised on 2023. Blood 09/24/2024 12:3 5 PM STRING WINDING MACHINE OPERATOR 09/24/2024 12:52 PM STRING WINDING MACHINE OPERATOR Result [facility] Britany Knight MD LAB BLOOD ORDERABLES Final Res ult Performing Organization Address [facility] de Phone Number [facility] [place] [address] * (ABNORMAL) Protime-INR (09/24/2024 12:35 PM STRING WINDING MACHINE OPERATOR) PT 14.1(H) 9.7 - 13.0 sec INR 1.30(H) 0.90 - 1.20 [facility] Comment: Interpretive data Oral anticoagulant therapeutic ranges: Venous thromboembolism prophylaxis or treatment: 2.0-3.0 CARDIOLOGY Standard range: 2.0-3.0 High-intensity range: 2.5-3.5 Refer to indication-specific guidelines for appropriate target ranges for prosthetic heart valve replacement. Current interpretive data was last revised on 2019. Blood 09/24/2024 12:3 5 PM STRING WINDING MACHINE OPERATOR 09/24/2024 12:52 PM STRING WINDING MACHINE OPERATOR Britany Knight MD LAB BLOOD ORDERABLES Final Res ult Performing Organization Address [facility] Co de Phone Number [facility] [place] [address] * Type and screen (09/24/2024 12:35 PM STRING WINDING MACHINE OPERATOR) Rosemarie, indirect Negative ABO Rh A Positive [facility] Blood 09/24/2024 12:3 5 PM STRING WINDING MACHINE OPERATOR 09/24/2024 1:15 PM STRING WINDING MACHINE OPERATOR Narrative [facility] - 09/24/2024 2:15 PM STRING WINDING MACHINE OPERATOR Has the patient had Daratumumab or Isatuximab in the past 6 months?->Unknown Britany Knight MD LAB BLOOD BANK TEST ORDERABLES Final Result Performing Organization Address [facility] de Phone Number [facility] [place] [address] * Blood gas, venous (09/24/2024 12:35 PM STRING WINDING MACHINE OPERATOR) pH, Venous 7.39 7.32 - 7.43 PCO2, Venous 48 40 - 50 mmHg [facility] PO2, Venous 37 mmHg [facility] Comment: Interpretive Data No Reference Range Established Current Interpretive Data was last revised on 2017. HCO3 Venous, Calculated 30 20 - 30 mmol/L [facility] BE, venous 3 mmol/L [facility] Comment: Interpretive Data No Reference Range Established Current Interpretive Data was last revised on 2017. Blood 09/24/2024 12:3 5 PM STRING WINDING MACHINE OPERATOR 09/24/2024 12:48 PM STRING WINDING MACHINE OPERATOR Britany Knight MD LAB BLOOD ORDERABLES Final Res ult Performing Organization Address [facility]/ZIP Co de Phone Number [facility] [place] [address] * (ABNORMAL) Ammonia (09/24/2024 12:35 PM STRING WINDING MACHINE OPERATOR) Ammonia 95(H) <=50 mcmol/L Blood 09/24/2024 12:3 5 PM STRING WINDING MACHINE OPERATOR 09/24/2024 12:52 PM STRING WINDING MACHINE OPERATOR Britany Knight MD LAB BLOOD ORDERABLES Final Res ult Performing Organization Address City/[facility]/ZIP Co de Phone Number [facility] [place] [address] * (ABNORMAL) Hepatic function panel (09/24/2024 12:35 PM STRING WINDING MACHINE OPERATOR) Bilirubin, total 3.0(H) 0.1 - 1.2 mg/dL Bilirubin, direct 1.0(H) 0.1 - 0.3 mg/dL [facility] Protein, pl 7.1 6.5 - 8.5 g/dL [facility] Albumin 3.2(L) 3.5 - 5.0 g/dL [facility] Alk phos 118 40 - 130 Units/L [facility] ALT 18 7 - 45 Units/L [facility] AST 53(H) 10 - 45 Units/L [facility] Blood 09/24/2024 12:3 5 PM STRING WINDING MACHINE OPERATOR 09/24/2024 12:59 PM STRING WINDING MACHINE OPERATOR Britany Knight MD LAB BLOOD ORDERABLES Final Res ult Performing Organization Address [facility] Co de Phone Number [facility] Department [place] [address] * (ABNORMAL) Basic metabolic panel (09/24/2024 12:35 PM STRING WINDING MACHINE OPERATOR) Sodium 133(L) 135 - 145 mmol/L Potassium, pl 3.5 3.3 - 4.9 mmol/L [facility] Chloride 90(L) 97 - 110 mmol/L [facility] CO2 26 22 - 32 mmol/L [facility] Anion gap 17(H) 2 - 15 mmol/L [facility] BUN 64(H) 6 - 25 mg/dL [facility] Creatinine 2.92(H) 0.60 - 1.10 mg/dL [facility] Glucose 349(H) 70 - 199 mg/dL [facility] Comment: Interpretive Data Fasting glucose >/= 126 [...] 2022. Calcium 11.1(H) 8.5 - 10.3 mg/dL [facility] Blood 09/24/2024 12:3 5 PM STRING WINDING MACHINE OPERATOR 09/24/2024 12:59 PM STRING WINDING MACHINE OPERATOR us Britany Knight MD LAB BLOOD ORDERABLES Final Res ult [facility] Department [place] [address] * Neuro CT Outside Consult (09/24/2024 12:33 PM STRING WINDING MACHINE OPERATOR) Anatomical Region Laterality Modality N/A Computed Tomogra phy 09/24/2024 12:4 7 PM STRING WINDING MACHINE OPERATOR Impressions 09/24/2024 12:47 PM STRING WINDING MACHINE OPERATOR No acute intracranial abnormality. The findings and impression are based on the available images, which may not be termite control service representative of the entire organ or disease entity. Also note that ultrasound image acquisition is vertical boring mill operator dependent, and that the study was performed outside our facility with no control over image acquisition. In addition, the provided images may or may not represent the [place] source data set and thus may contain [...] Anastacio Angulo MD Narrative 09/24/2024 12:47 PM STRING WINDING MACHINE OPERATOR EXAMINATION: RADIOLOGY CONSULTATION ON OUTSIDE IMAGING STUDY STUDY INITIALLY PERFORMED: 09/24/2024 at [facility]. TYPE OF STUDY: Multiple CT [...] IMAGING STUDY STUDY INITIALLY PERFORMED: 09/24/2024 at [facility]. TYPE OF STUDY: Multiple CT [...] the available images, which may not be termite control service representative of the entire organ or disease entity. Also note that ultrasound image acquisition is vertical boring mill operator dependent, and that the study was performed outside our facility with no control over image acquisition. In addition, the provided images may or may not represent the [place] source data set and thus may contain [...] * XR Outside Reference (09/24/2024 12:28 PM STRING WINDING MACHINE OPERATOR) Impressions [facility] - 09/24/2024 12:28 PM STRING WINDING MACHINE OPERATOR These images are for Reference purposes only and have not been reviewed by [facility]. There will be no report generated by a [facility] Radiologist. Narrative [facility] - 09/24/2024 12:28 PM STRING WINDING MACHINE OPERATOR EXAMINATION: Images For Reference Purposes Only Britany Knight MD IMG XR PROCEDURES Final Result Performing Organization Address [facility] Co de Phone Number [email or web address] * HLA Antibody Screen by PRA or SAB per Schedule (Class I and Class II) (09/21/2024 1:00 PM STRING WINDING MACHINE OPERATOR) Blood 09/21/2024 1:00 PM STRING WINDING MACHINE OPERATOR Narrative [facility] - STRING WINDING MACHINE OPERATOR Sample received in lab. Single Antigen Antibody Screen ordered. Tiomthy Pardo MD LAB BLOOD ORDERABL ES Final Result Performing Organization Address [facility] Co de Phone Number [facility] * HLA Antibody Screen - SAB (Class I and Class II) (09/21/2024 1:00 PM STRING WINDING MACHINE OPERATOR) Class I Treatment EDTA [facility] Class [...] DR10, DR12, DR52 [facility] 09/21/2024 1:00 PM STRING WINDING MACHINE OPERATOR 09/29/2024 9:55 AM STRING WINDING MACHINE OPERATOR Narrative [facility] - 09/29/2024 9:55 AM STRING WINDING MACHINE OPERATOR Single-antigen HLA antibody screen is performed on serum samples using a method developed and validated by the [facility] HLA laboratory based on an FDA-approved IVD kit (LABScreen Single-Antigen, [employer], [place], [place]). All patient serum samples are pretreated with EDTA before the screen to prevent complement interference. Additional serum treatments, such as adsorption and DTT treatment, may be performed as indicated. Interpretive comments: Low risk: MFI 1110-3615. Moderate risk: MFI 3002-9921. Increased risk: MFI >/= 5000. The presence [...] antigens to avoid. Testing performed at the [facility] HLA Laboratory, [facility], [address]th floor, [place], [address]. CLIA # [id number]. Rani Smith, Ph.D., Informatics Consultant, HLA Laboratory Aurelio Palafox M.D., Ph.D., Electric Drill Operator, HLA Laboratory Norma Talamantes, Ph.D., CLIA Electric Drill Operator, [facility] Clinical Laboratories Current methodology and interpretive comments last revised on 09/06/2022. us Timothy Pardo MD LAB BLOOD ORDERABL ES Final Result [facility] * Pap and High Risk HPV and Genotyping (Cytology Component) (04/28/2024 10:41 AM CDT) Thin prep (Pap test) 04/28/2024 10:41 AM CDT 04/28/2024 1:00 PM CDT Narrative PATHOLOGY [facility] - 05/04/2024 4:21 PM CDT EPIC results best viewed via link to PDF [facility] of Surgical Pathology [place], [place] [id number] Note to Patients: This report may contain [...] Gender: Michelle : 1960 (Age: 63) Address: [address] [place] [id number] [facility] #: [id number] Service: Medical Location: [place] [id number] Patient Type: [facility] Inpatient Taken: 04/28/2024 Received: 04/28/2024 [...] this test have been verified by the [facility] Molecular Infectious Disease laboratory. Correlate with [...] clinical information and biopsy results as indicated. [facility] Clinical Laboratory Improvement Amendments (CLIA) mandate that cytologic and histologic results be correlated for laboratory water quality specialist & improvement standards. FOR ALL [...] determined by the Surgical Pathology Department at [facility] as part of an ongoing quality assurance monitor body program and in compliance with federally mandated [...] determined by the Surgical Pathology Department of [facility]. It has not been cleared or approved by the U. S. Food and Drug Administration. Eladio Carey MD LAB CYTOLOGY ORDERABLES Final Result PATHOLOGY [facility] 3rd Floor [place], [place] [phone] * Screening Mammogram Bilateral W Pal (04/27/2024 1:55 PM CDT) Anatomical Region Laterality Modality Breast Bilateral Mammography Narrative 04/27/2024 1:52 PM CDT Mammogram Technique: Bilateral Digital Breast Tomosynthesis, Bilateral C-view 2D Screening mammogram. Views obtained: bilateral craniocaudal and bilateral mediolateral oblique. Computer Aided Detection was performed. Mammogram Findings: The present examination has been compared to prior imaging studies performed at [facility] on 05/15/2021 and 12/06/2021. There are [...] compared to prior imaging studies performed at [facility] on 05/15/2021 and 12/06/2021. There are [...] on 2018. Triglycerides 43 <=149 mg/dL [facility] Comment: Interpretive Data Ages [...] on 2018. HDL 64 >=40 mg/dL [facility] Comment: Interpretive Data Ages [...] 2018. LDL, calculated 47 <=129 mg/dL [facility] Comment: Interpretive Data Ages [...] on 2024. Non-HDL Cholesterol 58 mg/dL [facility] Comment: Interpretive Data Ages [...] last revised on 2018. Chol/HDL ratio 2 [facility] Blood 04/22/2024 12:5 8 AM CDT 04/22/2024 3:00 AM CDT us John Paul Reddy MD LAB BLOOD ORDERABLES Final Resul t Performing Organization Address City/[facility] Co de Phone Number [facility] Department [place] [address] * Hepatitis C antibody Blood (06/16/2023 6:09 AM STRING WINDING MACHINE OPERATOR) Hep C Ab Nonreactive Nonreactive [facility] Comment:Antibodies to HCV no t detected. Does NOT exclude the possibility of recent exposure to HCV. Current interpretive data was last revised on 22 Blood 06/16/2023 6:09 AM STRING WINDING MACHINE OPERATOR 06/16/2023 6:35 AM STRING WINDING MACHINE OPERATOR us Alejandro Frazier MD LAB MICROBIOLOGY - GENERAL ORDERABLES Final Result Performing Organization Address [facility] Co de Phone Number [facility] Department [place] [address] * COLONOSCOPY (05/30/2022 9:28 AM CDT) Anatomical Region Laterality Modality Other Narrative Procedure Note Pat Robins MD - 05/30/2022 9:28 AM CDT GI ENDOSCOPY [facility] Patient Name: Nael Cardoza Procedure Date: 05/30/2022 9:28 AM Date of : 1960 Admit Type: Outpatient Age: 61 Gender: Female Attending MD: Pat Robins M.D. Room: [facility] ENDOSCOPY ROOM 3 Note Status: Finalized [...] The scope was passed under direct vision.The [facility] [id number] endoscope was introducedthrough the anus and [...] medications. - Repeat colonoscopy in 10 years [facility]. - Return to referring physician in 10 years. Attending Participation: I personally performed the entire procedure. Electronically signed by Pat Robins MD Pat Robins M.D. 05/30/2022 10:31:01 AM . Number of Addenda: 0 Note Initiated On: 05/30/2022 9:28 AM Recognized by the [employer] for promoting quality in endoscopy us Pat Robins MD ENDOSCOPY PROCEDURES Ju l Result * Albumin Creatinine Ratio, Urine (03/01/2021 2:45 PM CDT) Albumin Ur <12.0 mg/L [facility] Comment: Interpretive Data No reference range established. Current interpretive data was last revised 2018. Creatinine Ur 59.5 mg/dL [facility] Comment: Interpretive Data No reference range established. Current interpretive data was last revised 2018. Albumin Creatinine Ratio, Ur <20 1 - 29 mg/g [facility] Urine 03/01/2021 2:45 PM CDT 03/01/2021 3:41 PM CDT us Oly Baker MD LAB URINE ORDER RAVEN Final Result [facility] Department [place] [address] from Last 3 Months or Most Recently Relevant to Health Maintenance Insurance [facility] Member Subscriber Plan / Payer (Ef fective 2018-Present) Name:Nael Cardoza Relation to Subscriber:Not on file Subscriber ID:Not on file Payer ID:[id number] (NAIC) Type:[facility] Address: [address] [facility] ACCESS BLUE ACCESS OOS Member Subscriber Plan / Payer (Ef fective 2021-Present) Name:Nael Cardoza Amanda Relation to Subscriber:Self Name:Nael Cardoza Amanda Payer ID:[id number] (NAIC) Type:[employer] Address: [address] [facility] HMO/PPO Address: [address] [address] [place] [address] [employer] [facility] MEDICARE ADVANTAGE [facility] [facility] Address: [address] [address] [place] [address] [employer]HC MEDICARE ADVANTAGE TRANSPLANT OPTUM MEDICARE RISK TRANSPLANT OPTUM MEDICARE RISK Advance Directives For more information, please contact: [phone] * Full Code (Latest Code Status on File) Date Activated Date Inactivated Comments 12/14/2024 8:30 AM 12/14/2024 2:14 PM * Full Code Date Activated Date Inactivated Comments 09/24/2024 6:33 PM 10/02/2024 9:03 PM * Full Code Date Activated Date Inactivated Comments 04/21/2024 8:02 PM 04/29/2024 8:05 PM * Full Code Date Activated Date Inactivated Comments 06/16/2023 5:52 AM 06/16/2023 6:30 PM * Full Code Date Activated Date Inactivated Comments 01/27/2023 8:35 AM 02/05/2023 7:30 PM Care Teams Retrieval Specialist Relationship Specialty Start Date End Date Maddy Romano MD [address] [place] [address] PCP - General 09/28/16 Manas Ibarra MD [address] [place] [address] Referring Physician Thoracic Surgery 11/05/18 Zion Barton MD [address] [place] [address] Radiation Oncologist Radiation Oncology 05/05/19 Molina Charles MD 1 [facility] [address] [place] [address] Referring Physician Transplant Hepatology 12/15/20 Karuna Maria, OT Occupational Therapist Occupational Therapy 09/20/22 Renu Treviño NP [address] [facility] [address] [place] [address] Nurse Practitioner Radiation Oncology 11/08/22 Eladio Mcrae MD [address] [place] [address] Referring Physician Obstetrics and Gynecology 11/15/22 Marcy Schroeder, RN [address] [place] [address] Employee Relations Specialist 04/27/24 Chelsea Barker, salesperson women's hatsEmployee Relations Specialist 11/13/24
--- OUTSIDE RECORDS SUMMARY | 2024-12-15 12:34 | XMS_ITS ---
Author Organization [facility] Address [address] [place] [address] Care Team Providers Care Event Sales Assistant Name Role Phone Maddy Romano MD Primary Care Provider [phone] Manas bIarra MD Unavailable Zion Barton MD Unavailable [place] Charles MD Unavailable [phone] Karuna Maria OT Unavailable Unavaila Renu Paul NP Unavailable [phone] Eladio Mcrae MD Unavailable [phone] Marcy Schroeder RN Unavailable [phone] Chelsea Barker RN Unavailable Unavail able Transplant Episode Liver Candidate [facility] ([place], [place]) - [facility] Center waitlisted on 08/17/2022 Marked as Active on 09/28/2024 Reason: Listed in [facility] Liver CoordinatorChelsea Barker RN Phone: N/A Fax: N/A Email: N/A Scores Score Value Updated Expires Exceptions/[place] sons CPRA Not available UNOS MELD 17 10/13/2024 01/11/2025 MELD (Calc) 18 12/04/2024 [place] Organ Diagnosis Organ Primary Contributory Liver Cirrhosis: Metabolic Dysfunction -Associated Steatohepatitis (MASH) Care Team Name Role Phone Fax Email Chelsea Barker, TYRA Liver Coordinator N/A N/A N/A Charito Lambert, DEVONTE Dietitian N/A N/A N/A Anna Ngo, ZAINAB Seismometer Operator N/A N/A N/A Molina Charles MD Referring Physician [phone] N/A Cynthia Robert RN Secondary Coordinator [phone] N/A N/A [place] Bear Switchboard Inspector [phone] N/A N/A Faith Lopez Primary Stereo Equipment Salesperson N/A N/A N/A Events Pre-Transplant Referred: 10/26/2021 Evaluation began: 11/02/2021 Committee: 08/07/2022 Center waitlisted: 08/17/2022 Appointments (11/15/2024 - 01/15/2025) When With Visit Type Description 11/25/2024 Transplant - Gurpreet, S Return Port osystemic encephalopathy (HCC) (Primary Dx); 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
--- OUTSIDE RECORDS SUMMARY | 2024-12-15 12:34 | XMS_ITS | Encounter Summary ---
Author Organization [facility] Address [address] [place] [address] Phone Care Team Providers Care Lighting Engineer Name Role Phone Maddy Romano MD Primary Care Provider Astrid Haq NP Unavailable Manas Ibarra MD Unavailable Zion Barton MD Unavailable [place] Charles MD Unavailable [phone] Inés Lemus RN Unavailable [phone] Karuna Maria OT Unavailable Unavaila Renu Paul NP Unavailable Eladio Mcrae MD Unavailable [phone] Marcy Schroeder RN Unavailable [phone] Briana Poe RN Unavailable Marina Le RN [...] on file Legal Sex Female 8:22 AM SMOKE JUMPER Gender Identity Female 11/15/2021 2:30 AM CDT [...] COVID: Suspected 09/24/2024 09/24/2024 09/24/2024 3:13 PM SMOKE JUMPER documented as of this encounter Care Teams Lighting Engineer Relationship Specialty Start Date End Date Maddy Romano MD [address] [place] [address] PCP - General 09/28/16 Astrid Haq NP [address] [place] [address] Nurse Practitioner Radiation Oncology 11/05/18 11/07/22 Manas Ibarra MD [address] [place] [address] Referring Physician Thoracic Surgery 11/05/18 Zion Barton MD [address] [place], [place] [address] Radiation Oncologist Radiation Oncology 05/05/19 [place] Charles MD 1 [facility] [address] [place] [address] Referring Physician Transplant Hepatology 12/15/20 Inés Lemus RN [address] [facility] [address] [place] [address] Fly Worker 10/31/21 5 Karuna Maria, OT Occupational Therapist Occupational Therapy 09/20/22 Renu Treviño NP [address] [facility] [address] [place], [place] [address] Nurse Practitioner Radiation Oncology 11/08/22 Eladio Mcrae MD [address] [place], [place] [address] Referring Physician Obstetrics and Gynecology 11/15/22 Marcy Schroeder, RN [address] [place] [address] Fly Worker 04/27/24 Briana Poe RN [address] [facility] [address] [place] [address] SHOP Outpatient Telecom Field Technician 04/30/24 05/28/24 Marina Le RN [address] [facility] [address] [place] [address] SHOP Outpatient Telecom Field Technician 10/05/24 10/26/24 Chelsea Barker, fabrication managerFly Worker 11/13/24 documented as of this encounter
--- OUTSIDE RECORDS SUMMARY | 2024-12-15 12:34 | XMS_ITS | Encounter Summary ---
Author Organization [facility] Address [address] [place] [address] Phone Care Team Providers Care Export Freight Clerk Name Role Phone Maddy Romano MD Primary Care Provider Astrid Haq NP Unavailable Manas Ibarra MD Unavailable Zion Barton MD Unavailable [place] MD Unavailable [phone] Inés Lemus RN Unavailable [phone] Karuna Maria OT Unavailable Unavaila Renu Paul NP Unavailable Eladio Mcrae MD Unavailable Marcy Schroeder RN Unavailable [phone] Briana Poe RN Unavailable Marina Le RN [...] on file Legal Sex Female 8:22 AM STAFF SCIENTIST Gender Identity Female 11/15/2021 2:30 AM CDT [...] the floor. 04/22/2024 04/22/2024 05/06/2024 3:05 AM CDT COVID: Suspected 04/24/2024 04/24/2024 04/24/2024 12:54 PM CDT COVID: Suspected 09/24/2024 09/24/2024 09/24/2024 3:13 PM STAFF SCIENTIST documented as of this encounter Care Teams Export Freight Clerk Relationship Specialty Start Date End Date Maddy Romano MD [address] [place] [address] PCP - General 09/28/16 Astrid Haq NP [address] [place] [address] Nurse Practitioner Radiation Oncology 11/05/18 11/07/22 Manas Ibarra MD [address] [place] [address] Referring Physician Thoracic Surgery 11/05/18 Zion Barton MD [address] [place] [address] Radiation Oncologist Radiation Oncology 05/05/19 [place] Charles MD [address] [place] [address] [address] [place] [address] Referring Physician Transplant Hepatology 12/15/20 Inés Lemus, TYRA [address] [facility] [address] [place] [address] Workers Compensation Claims Specialist 10/31/21 5 Karuna Maria, OT Occupational Therapist Occupational Therapy 09/20/22 Renu Treviño NP [address] [facility] [address] [place] [address] Nurse Practitioner Radiation Oncology 11/08/22 Eladio Mcrae MD [address] [place] [address] Referring Physician Obstetrics and Gynecology 11/15/22 Marcy Schroeder RN [address] [place] [address] Workers Compensation Claims Specialist 04/27/24 Briana Poe, TYRA [address] [address] [facility] Outpatient Solaris Administrator 04/30/24 05/28/24 Marina Le RN [address] [address] [facility] Outpatient Solaris Administrator 10/05/24 10/26/24 Chelsea Barker, grocery stockerWorkers Compensation Claims Specialist 11/13/24 documented as of this encounter
--- OUTSIDE RECORDS SUMMARY | 2024-12-15 12:34 | XMS_ITS | Encounter Summary ---
Author Organization [facility] Address [address] [place] [address] Phone Care Team Providers Care Rn Medication Name Role Phone Maddy Romano MD Primary Care Provider Astrid Haq NP Unavailable Manas Ibarra MD Unavailable Zion Barton MD Unavailable [phone] [place] MD Unavailable [phone] Inés Lemus RN Unavailable [phone] Karuna Maria OT Unavailable Unavaila Renu Paul NP Unavailable Eladio Mcrae MD Unavailable Marcy Schroeder RN Unavailable [phone] Briana Poe RN Unavailable Marina Le [...] on file Legal Sex Female 8:22 AM MICROFILM OPERATOR Gender Identity Female 11/15/2021 2:30 AM [...] is to be collected (Reach out to for order) Patient does NOT need isolation, patient can travel off the floor. 04/22/2024 04/22/2024 05/06/2024 3:05 AM C DT COVID: Suspected 04/24/2024 04/24/2024 04/24/2024 12:54 PM CDT COVID: Suspected 09/24/2024 09/24/2024 09/24/2024 3:13 PM MICROFILM OPERATOR documented as of this encounter Care Teams Rn Medication Relationship Specialty Start Date End Date Maddy Romano MD [address] [place] [address] PCP - General 09/28/16 Astrid Haq NP [address] [place] [address] Nurse Practitioner Radiation Oncology 11/05/18 11/07/22 Manas Ibarra MD [address] [place] [address] Referring Physician Thoracic Surgery 11/05/18 Zion Barton MD [address] [place] [address] Radiation Oncologist Radiation Oncology 05/05/19 [place] Charles MD 1 [facility] [address] [place] [address] Referring Physician Transplant Hepatology 12/15/20 Inés Lemus, TYRA [address] [facility] [address] [place] [address] Pediatric Physician 10/31/21 5 Karuna Maria, OT Occupational Therapist Occupational Therapy 09/20/22 Renu Treviño NP [address] [facility] [address] [place] [address] Nurse Practitioner Radiation Oncology 11/08/22 Eladio Mcrae MD [address] [place] [address] Referring Physician Obstetrics and Gynecology 11/15/22 Marcy Schroeder RN [address] [place] [address] Pediatric Physician 04/27/24 Briana Poe, TYRA [address] [address] [facility] Outpatient Engineer Gas Pumping Station 04/30/24 05/28/24 Marina Le RN [address] [address] [facility] Outpatient Engineer Gas Pumping Station 10/05/24 10/26/24 Chelsea Barekr, tire regrooving machine operatorPediatric Physician 11/13/24 documented as of this encounter
--- OUTSIDE RECORDS SUMMARY | 2024-12-15 12:34 | XMS_ITS | Encounter Summary ---
Author Organization [facility] Address [address] [place] [address] Care Team Providers Care Corporation Pilot Name Role Phone Unavailable Primary Care Provider Unavailabl e Reason for Visit * Reason Onset Date Comments TR on CKD 04/02/2024 Spoke w/Dr. Mueller Stroke/CVA 04/02/2024 Spoke w/Gladys @ Dr. Anthony's exchange Encounter Details Date Type Department Care Team (Late st Contact Info) Description 04/02/2024 Telephone [facility] Emergency [address] [place] [address] [place] [id number] [place] [address] TR on CKD (Spoke w/Dr. Mueller); [...]
--- OUTSIDE RECORDS SUMMARY | 2024-12-15 12:34 | XMS_ITS | Encounter Summary ---
Author Organization [facility] Address [address] [place] [address] Phone Care Team Providers Care Guest Services Coordinator Name Role Phone Maddy Romano MD Primary Care Provider [phone] Astrid Haq NP Unavailable Manas Ibarra MD Unavailable Zion Barton MD Unavailable [phone] [place] Charles MD Unavailable [phone] Inés Lemus RN Unavailable [phone] Karuna Maria OT Unavailable Unavaila Renu Paul NP Unavailable Eladio Mcrae MD Unavailable [phone] Marcy Schroeder RN Unavailable [phone] Briana Poe RN Unavailable [phone] Marina Le RN Unavailable Chelsea Barker RN [...] file Legal Sex Female 8:22 AM FIELD RING ASSEMBLER Gender Identity Female 11/15/2021 2:30 AM [...] COVID: Suspected 09/24/2024 09/24/2024 09/24/2024 3:13 PM FIELD RING ASSEMBLER documented as of this encounter Care Teams Guest Services Coordinator Relationship Specialty Start Date End Date Maddy Romano MD [address] [place] [address] PCP - General 09/28/16 Astrid Haq NP [address] [place] [address] Nurse Practitioner Radiation Oncology 11/05/18 11/07/22 Manas Ibarra MD [address] [place] [address] Referring Physician Thoracic Surgery 11/05/18 Zion Barton MD [address] [place] [address] Radiation Oncologist Radiation Oncology 05/05/19 [place]ina Charles MD 1 [facility] [address] [place] [address] Referring Physician Transplant Hepatology 12/15/20 Inés Lemus, TYRA [address] [facility] [address] [place] [address] Certified Ethical Hacker 10/31/21 5 Karuna Maria OT Occupational Therapist Occupational Therapy 09/20/22 Renu Treviño, NAGI [address] [facility] [address] [place] [address] Nurse Practitioner Radiation Oncology 11/08/22 Eladio Mcrae MD [address] [place], [place] [address] Referring Physician Obstetrics and Gynecology 11/15/22 Marcy Schroeder, RN [address] [place] [address] Certified Ethical Hacker 04/27/24 Briana Poe, TYRA 45[address] [facility] [address] [place] [address] SHOP Outpatient Wooden Frame Builder 04/30/24 05/28/24 Marina Le RN 45[address] [facility] [address] [place] [address] SHOP Outpatient Wooden Frame Builder 10/05/24 10/26/24 Chelsea Barker, industrial relations specialistCertified Ethical Hacker 11/13/24 documented as of this encounter
--- OUTSIDE RECORDS SUMMARY | 2024-12-15 12:34 | XMS_ITS | Clinical Summary ---
Author Organization [facility] Address [address] [place] [address] Phone Care Team Providers Care Capsule Maker Name Role Phone Unavailable Primary Care Provider Unavailabl e Allergies No known active allergies Medications acetaminophen (TYLENOL) 325 mg tablet Take 325 mg by mouth every 8 hours. Active glucagon (BAQSIMI) 3 mg/spray [place], Non-Aerosol 1 [place]. GIVE 1 spray in one NOSTRIL ONE [...] Encounters Date Type Department Care Team Description 12/08/2024 External Device Data ST[facility] ABSTRACTION Provider, Abstract 11/17/2024 External Device Data STL ABSTRACTION Provider, [...] No 04/02/2024 Food Insecurity Answer Date Recorded Patient needs follow up regardin 12/08/2024 Transportation Needs Answer Date Record ed Patient needs follow up regardin 12/08/2024 Housing Stability Answer Date Recorded Social/Environmental Concerns No concerns Utility Needs Answer Date Recorded Patient needs follow up regardin 12/08/2024 Comments Unknown Sex and Gender Information Value [...] STOOL Negative Negative 04/03/2024 3:27 AM CDT [facility] Stool STOOL SPECIMEN / Unknown Collection / Unknown 04/03/2024 1:23 AM CDT 04/03/2024 1:24 AM CDT us Marcos Newton MD BODY FLUIDS AND STOOLS Final R esult [facility] CLIA# [id number] [address] [place] [address] * LIPID PANEL (04/03/2024 12:30 AM CDT) CHOLESTEROL 114 <200 mg/dL 04/03/2024 1:34 AM CDT [facility] TRIGLYCERIDE 62 <150 mg/dL 04/03/2024 1:34 AM CDT [facility] HDL 50 40 - 59 mg/dL 04/03/2024 1:34 AM CDT [facility] LDL CALCULATED 52 <100 mg/dL 04/03/2024 1:34 AM CDT [facility] NON-HDL CHOLESTEROL 64 <130 mg/dL 04/03/2024 1:34 AM CDT [facility] Blood Venipuncture / Unknown 04/03/2024 12:30 AM CDT 04/03/2024 1:04 AM CDT [facility] - 04/03/2024 1:34 AM CDT TOTAL CHOLESTEROL [...] Newton MD CHEMISTRY ORDERABLES Final Res ult [facility] CLIA# [id number] [place] [address] * (ABNORMAL) HEMOGLOBIN A1C (04/02/2024 6:29 PM CDT) HEMOGLOBIN A1C 6.5(H) <=5.6 % 04/02/2024 7:01 PM CDT [facility] EST. AVG GLUCOSE, A1C 140 mg/dL 04/02/2024 7:01 PM CDT [facility] Blood Venipuncture / Unknown 04/02/2024 6:29 PM CDT 04/02/2024 6:34 PM CDT Narrative [facility] - 04/02/2024 7:01 PM CDT HGB A1C INTERPRETATION NORMAL: <5.7% PRE-DIABETES: 5.7 - 6.4% DIABETES: 6.5% OR GREATER us Marcos Newton MD CHEMISTRY ORDERABLES Final Res ult [facility] CLIA# [id number] [place] [address] from Last 3 Months or Most Recently Relevant to Health Maintenance Insurance RX OPT[employer] RX Member Subscriber Plan / Payer (Ef fective 2024-Present) Name:Aleah Levine Relation to Subscriber:Self Name:Aleah Levine Payer ID:Not on file Group ID:[id number] Type:RX Medicare Part D Address: [address] Advance Directives For more information, please contact: [phone] * Full Code (Latest Code Status on File) Date Activated Date Inactivated Comments 04/02/2024 6:16 PM 04/06/2024 2:11 PM
--- OUTSIDE RECORDS SUMMARY | 2024-12-15 12:34 | XMS_ITS | Clinical Summary ---
Author Organization [facility] Address [address] [place] [address] Care Team Providers Care Railway Patrol Officer Name Role Phone Maddy Romano MD Primary Care Provider Manas Ibarra MD Unavailable Zion Barton MD Unavailable Molina Charles MD Unavailable [phone] Karuna Maria OT Unavailable Unavaila Renu Paul NP Unavailable [phone] Eladio Mcrae MD Unavailable [phone] Marcy Schroeder RN Unavailable [phone] Chelsea Barker RN Unavailable Unavail able [...] stage 3a chronic kidney disease, unspecified whether termite exterminator insulin use (HCC) Will use 1 sensor every 10 days. 1 box = 3 sensors. 3 each 5 08/19/19 25 Active blood-glucose transmitter (Dexcom G6 Transmitter) deviceIndications: Type 2 diabetes mellitus without complication, unspecified whether termite exterminator insulin use (HCC) Will use 1 transmitter every 90 days 1 each 08/19/19 25 Active pen needle, diabetic (BD Ultra-Fine Mini Pen Needle) 31 gauge x 3/16 needleIndications: Type 2 diabetes mellitus without complication, unspecified whether shelter insulin use (HCC) USE TO INJECT INSULIN [...] 10/02/19 25 Active blood-glucose meter,continuous (Dexcom G7 Spacer Type Bar And Segment) misc Use as directed. 1 each 10/02/19 [...] 10/10/2022 Assessment & Plan (10/12/2022 12:20 PM ARBORICULTURIST): Episode of atrial flutter overnight with RVR up to 140s. Patient asymptomatic, normotensive. IV metoprolol X2 given to achieve rate control. [id number] vasc score of 3. TTE from 09/03 without valvular abnormalities. No new episodes today. Lytes within normal limits. - Continue youth nutritional monitor - Continue home dose of metoprolol 25mg BID - Given that patient might be listed for transplant, hepatology would prefer to avoid apixaban. Lovenox is not ideal given her platelet count less than 100. Her INR is too high to consider warfarin. Anemia 10/05/2022 Assessment & Plan (10/11/2022 12:28 PM ARBORICULTURIST): - Hgb has down trended from 8 [...] 10/05/2022 Assessment & Plan (10/11/2022 12:45 PM ARBORICULTURIST): -Continue home dose of metoprolol 25mg BID Hepatic encephalopathy 07/31/2022 Assessment & Plan (03/06/2023 5:49 PM CDT): Good control on current medical management. No changes indicated. Assessment & Plan (08/03/2022 1:05 PM ARBORICULTURIST): Pt with hx of VELASCO cirrhosis presenting with progressively worsening mental status over past several weeks. On initial examination patient was AAOx1, on subsequent exam she is now AAOx2 with appropriate responses. NH3 75. Unfortunately no safe area for bedside diagnostic paracentesis. Slurred speech and concerns for swallowing. SEPTIC TECHNICIAN completed swallow study and normal. Head CT: No acute intracranial abnormality. -Awaiting Liver MRI -Increased Lactulose to 4x daily (only 1 stool on 08/02) - Rifaximin and Lactulose (goal 3-5 bowel movements) - Fall precautions. - PT/OT: Home with assistance. Assessment & Plan (08/02/2022 2:34 PM ARBORICULTURIST): Pt with hx of VELASCO cirrhosis presenting with progressively worsening mental status over past several weeks. On initial examination patient was AAOx1, on subsequent exam she is now AAOx2 with appropriate responses. NH3 75. Unfortunately no safe area for bedside diagnostic paracentesis. Slurred speech and concerns for swallowing. SEPTIC TECHNICIAN completed swallow study and normal. Head CT: No acute intracranial abnormality. - Rifaximin and Lactulose (goal 3-5 bowel movements) - Fall precautions. - PT/OT: Home with assistance. - SEPTIC TECHNICIAN completed bedside swallow and Normal Assessment & Plan (08/01/2022 3:28 PM ARBORICULTURIST): Pt with hx of VELASCO cirrhosis presenting [...] concerns for swallowing. - Fall precautions. - SEPTIC TECHNICIAN/PT/OT Consults. Assessment & Plan (08/01/2022 4:16 AM ARBORICULTURIST): Pt with hx of VELASCO cirrhosis presenting [...] mellitus Assessment & Plan (10/12/2022 2:58 PM ARBORICULTURIST): Previously on dose reduced insulin regimen at OSH 20u lantus, 7u tid lispro + ssi. - Her blood sugars were initially on the lower side (90-100) in setting of poor po intake and TR. Continue SSI only for now and will uptitrate as needed. - Continue Lantus 10u/daily + lispro 4TID Assessment & Plan (08/03/2022 1:09 PM ARBORICULTURIST): Home regimen of toujeo 42 units + SSI. -Lantus, Lispro TID AC and SSI -No Juice Diet -Consistent Carb+ 2gm NA diet. -CTM BGL Assessment & Plan (08/02/2022 2:38 PM ARBORICULTURIST): Home regimen of toujeo 42 units + SSI. -Lantus, Lispro TID AC and SSI -No Juice Diet -Consistent Carb+ 2gm NA diet. -CTM BGL Assessment & Plan (08/01/2022 3:26 PM ARBORICULTURIST): Home regimen of toujeo 42 units + SSI. Given TR and decreased PO intake, insulin regimen reduced to Lantus 20units. - Continue on 2g Na + DM2 diet - CTM BGL Assessment & Plan (08/01/2022 4:17 AM ARBORICULTURIST): Home regimen of toujeo 42 units + [...] (10/22/2022): Added automatically from request for surgery [id number] Volume overload 10/06/2022 05/29/2024 Assessment & Plan (10/10/2022 1:09 PM ARBORICULTURIST): In the setting of VELASCO cirrhosis. Diuretics [...] (08/22/2022): Added automatically from request for surgery [id number] Portal vein thrombosis 08/01/202208/22 Assessment & Plan (08/03/2022 1:09 PM ARBORICULTURIST): -Apixaban 2.5mg BID Assessment & Plan (08/02/2022 2:39 PM ARBORICULTURIST): -Apixaban 2.5mg BID Assessment & Plan (08/01/2022 3:27 PM ARBORICULTURIST): -Apixaban 2.5mg BID Assessment & Plan (08/01/2022 4:17 AM ARBORICULTURIST): Continue home apixaban VELASCO (nonalcoholic steatohepatitis) 11/02/2021 07/15/2024 Abnormal mammogram of right breast 11/02/2020 08/22/2022 Preop cardiovascular exam 09/23/2019 Overview (09/23/2019): Added automatically from request for surgery [id number] Colon cancer screening 04/21/201908/22 Overview (04/21/2019): Added automatically from request for surgery [id number] Esophageal varices without bleeding (CMS/HCC) 04/21/20 19 08/22/2022 Overview (04/21/2019): Added automatically from request for surgery [id number] Steatosis of liver 05/20/2017 [facility] current use of ant icoagulant therapy 07/26/2016 08/22/2022 Neutropenia 07/14/2015 07/15/2024 Portal vein thrombosis 07/14/201508/22 BMI 45.0-49.9, adult 11/18/2014 024 Hepatic cirrhosis 05/20/2014 10/05/2022 Abnormal magnetic resonance imaging study 05/20/2014 08/22/2022 Biliary colic 05/10/2014 08/22/2022 Lesion of liver 04/30/2014 08/22/2022 Decreased granulocyte count 01/14/2014 07/15/2024 Lymphopenia 03/17/2013 07/15/2024 Rash 03/25/2012 08/22/2022 Encounters Date Type Department Care Team Description 12/15/19 9:15 AM CDT - 12/15/19 9:45 AM CDT Surgery [facility] Endoscopy [address] [place] [address] Mercy Adler MD PhD ESOPHAGOGASTRODUODENOSCOPY 12/15/19 9:11 AM CDT Anesthesia Event [facility] Endoscopy [address] [place] [address] Ezequiel Waldron MD 12/15/19 8:08 AM CDT - 12/15/19 10:14 AM CDT Hospital Encounter [facility] Endoscopy [address] [place] [address] Mercy Adler MD PhD Discharge Disposition: Discharge to home or self care 12/15/19 Telephone [facility] Transplant Liver [address] [facility] [address] happyviewop [phone] [place] [address] Chelsea Barker RN 12/15/19 Results Follow-Up [facility] Transplant Liver [address] [facility] [address] Mailstop [phone] [place] [address] Chelsea Barker, RN 12/15/[address] [facility] Transplant Liver [address] [facility] [address] Mail[address] [phone] [place] [address] Chelsea Barker, RN 12/09/[address] [facility] Trans[facility] Liver [address] [facility] [address] 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 Gastroenterology [address] [place] [address] Advanced Medicine 12th [place] [address] [place] [address] Molina Charles MD 12/02/[address] [facility] Gastroenterology [address] [facility] Advanced Medicine 12th [place] [address] [place] [address] Marina Estrella LPN GI Preprocedure 11/28/[address] [facility] Gastroenterology [address] [facility] Advanced Medicine 12th [place] [address] [place] [address] Kimberley Goodman cancel procedure 11/27/[address] [facility] Transplant Liver [address] [facility] [address] 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 Gasteroenterology [facility] 12th [place] [address] [place] [address] Taiwo Vázquez MD Portosystemic encephalopathy (HCC) (Primary [...] adult (HCC); Hepatic encephalopathy (HCC) 11/25/19 Telephone [facility] Specialty Services [address] [place] [phone] Tonya Malcolm RN GI Preprocedure 11/24/19 25 Orders Only [facility] 1 [facility] 1st [place] [address] Timothy Pardo MD ESRD (end stage renal disease) (HCC) 11/20/19 2:00 PM CDT - 11/20/19 11:59 PM CDT Hospital Encounter [facility] [address] [address] Discharge Disposition: Discharge to home or self care 11/12/19 11:30 AM CDT Therapy [facility] Speech Therapy [address] [place] [phone] Oropharyngeal dysphagia (Primary Dx) 11/12/19 10:53 AM CDT - 11/12/19 11:59 PM CDT Hospital Encounter [facility] Radiology [address] [place] [address] Dysphagia, oropharyngeal Discharge Disposition: Discharge to home or self care 11/12/19 Plan of Care Documentation [facility] Speech Therapy [address] [place] [address] 10/28/19 SHOP/CHAP Subsequent Outreach [facility] OP CASE MANAGEMENT 1 [place] [address] Marina Le, RN 10/21/19 SHOP/CHAP Subsequent Outreach [facility] OP CASE MANAGEMENT [address] [place] [address] Marina Le, RN 10/21/[address] [facility] Transplant Liver [address] [facility] [address] Mailstop [phone] [place] [address] KareledaCelsa 10/21/[address] [facility] Transplant Liver [address] [facility] [address] Mailstop [phone] [place] [address] Inés Lemus, TYRA 10/16/19 SHOP/CHAP Subsequent Outreach [facility] OP CASE MANAGEMENT 1 [place] [address] Marina Le, RN 10/15/19 12:30 PM ARBORICULTURIST Office Visit [facility] Endocrinology Metabolism and Lipid [address] [facility] 13th [place] [address] [place] [address] Sylvain Aguilera MD Type 2 diabetes mellitus without complication, unspecified whether shelter insulin use (HCC) (Primary Dx) 10/14/19 11:40 AM ARBORICULTURIST Lab [facility] ([facility]) [address] [place] [address] VELASCO (nonalcoholic steatohepatitis) 10/14/19 8:30 AM ARBORICULTURIST Office Visit [facility] Nephrology [address] [facility] 5th [place] [address] Hypertension, unspecified ty pe (Primary Dx); Stage 3b chronic kidney disease (HCC); Anemia in stage 3b chronic kidney disease (HCC) 10/14/[address] [facility] Transplant Liver [address] Mailstop [phone] [place] [address] Inés Lemus, TYRA 10/14/[address] [facility] Transplant Liver [address] [facility] [address] Mailstop [phone] [place] [address] KareledaLeahie 10/14/[address] [facility] Transplant Liver [address] [facility] [address] Mailstop [phone] [place] [address] KareledaCelsa 10/14/[address] [facility] Transplant Liver [address] [facility] [address] Mailstop [phone] [place] [address] KareledaCelsa 10/13/19 11:45 AM ARBORICULTURIST - 10/13/19 11:59 PM ARBORICULTURIST Hospital Encounter [address] [address] ESRD (end stage renal diseas e) (HCC) Discharge Disposition: Discharge to home or self care 10/13/[address] [facility] Transplant Liver [address] [place] [address] [place] [address] [phone] [place] [address] Inés Lemus, TYRA 10/13/19 25 SHOP/CHAP Subsequent Outreach [facility] OP CASE MANAGEMENT 1 [place] [address] Marina Le RN 10/09/[address] [facility] Transplant Liver [address] [place] [address] [facility] [place] [facility] [phone] [place] [address] Inés Lemus, TYRA 10/09/[address] [facility] Gastroenterology [address] [place] [address] 12th [place] [address] Alexandra Issa, TYRA 10/08/19 25 4:00 PM ARBORICULTURIST Office Visit 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 Gastroenterology [facility] 12th [place] [address] [place] [address] Megaan Maravilla GI PRE PROCEDURE ASSESSMENT (COLON) 10/06/19 SHOP/CHAP Subsequent Outreach [facility] OP CASE MANAGEMENT 1 [place] [address] Marina Le, RN 10/05/[address] [facility] Transplant Liver [address] [facility] [address] Mailstop [phone] [place] [address] Inés Lemus, RN 10/05/19 Results Follow-Up [facility] Transplant Liver [address] [facility] [address] Mailstop [phone] [place] [address] Inés Lemus, RN 10/05/[address] [facility] Transplant Liver [address] [facility] [address] Mailstop [phone] [place] [address] Inés Lemus, RN 10/05/19 SHOP/CHAP Initial Outreach [facility] OP CASE MANAGEMENT 1 [place] [address] Marina Le, RN 10/05/19 SHOP/CHAP Initial Eligibility Review [facility] OP CASE MANAGEMENT 1 [place] [address] Marina Le, RN 09/29/[address] [facility] Transplant Liver [address] [facility] [address] Mailstop [phone] [place] [address] Chelsea Barker RN 09/28/19 25 Documentation [facility] Transplant Liver [address] [place] [address] [facility] [phone] [place] [address] Chelsea Barker RN 09/24/19 12:08 PM ARBORICULTURIST - 10/02/19 5:03 PM ARBORICULTURIST Hospital Encounter [facility] 1 [place] [phone] Paxton Hawk MD Mudd, Peter Shine MD PhD Lexis, MD Sandra Michaels Alvin, MD Stephenson, Molina Moreno MD Gastrointestinal hemorrhage, unspecified gastrointestinal hemorrhage type (Primary Dx); Hepatic encephalopathy (HCC); Stage 3b chronic kidney disease (HCC); Dysphagia, oropharyngeal; Physical debility Discharge Disposition: Discharge to home or self care 09/24/19 25 Telephone [facility] Transplant Liver [address] [place] [address] [phone] [place] [address] Inés Lemus RN 09/24/[address] [facility] Gastroenterology [address] [place] [address] Medical Office Building [address], [address] [place] [address] Gregory Del Cid MD 09/21/19 10:00 AM ARBORICULTURIST - 09/21/19 11:59 PM ARBORICULTURIST Hospital Encounter [address] [address] ESRD (end stage renal diseas e) (HCC) Discharge Disposition: Discharge to home or self care from Last 3 Months Immunizations Immunization Administration Dates Next Due Hep B Vaccine 01/22/2024,12/18/2023 Influenza, Quadrivalent, Spl it, Intramuscular 05/01/2019,05/26/2015 Influenza, Quadrivalent, Spl it, Preservative Free, Intramuscular 07/02/2023,04/29/2020,05/01/2019,05/09,05/08/2018,05/23/2017,05/17/2016 Influenza, Trivalent, IM (MDV) 04/28/2021,2013 Influenza, Trivalent, Preser vative Free, Intramuscular 05/29/2013 Octamer (J&J) SARS-CoV-2 Vaccination 10/17/2020 Pneumococcal Conjugate PCV [...] radiation oncology 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) portal HTN DM type 2 (diabetes [...] Raphael Maternal Grandmother Ame Easton Sister Rosie Mathewnoemi Alive Social History Tobacco Use Types Packs/Day Years Used Date Smoking Tobacco: Former Cigarettes 0.5 51 1 970 - 2020 Smokeless Tobacco: Never Tobacco Cessation:Counseling Given: Not Answered [facility] Utilities Answer Date Recorded In [...] any clubs o r organizations such as druze groups, unions, fraternal or athletic groups, or [...] in the past 12 m [facility], were you homeless or living in a [...] on file Legal Sex Female 8:22 AM ARBORICULTURIST Gender Identity Female 11/15/2021 2:30 AM CDT [...] 2023-2 5 season) 2024 07/02/2023, 09/11/2021, 10/17/2020 Lipid Panel 04/22/2025 04/22/2024, 03/13, 04/02/2024, Additional history exists Breast Cancer Screening-Mammogram 04/27/2025 024, 12/06/2021 Cervical Cancer Screening 04/28/2025 04/28/2024, Hemoglobin A1C 05/27/2025 11/25/2024, 09/12, 09/28/2024, Additional history exists eGFR 12/04/2025 12/04/2024, 11/10, 10/13/2024, Additional history exists Colon Cancer Screening-Colonoscopy 05/30/2032 [...] with long-term current use of insulin (HCC) [id number], TUMOR MARKER Routine 11/25/2024 9:40 AM CDT [...] 11:46 AM CDT Dysphagia, oropharyngeal POCT GLUCOSE [id number] Routine 10/14/2024 12:20 PM ARBORICULTURIST Type 2 diabetes mellitus without complication, unspecified whether termite exterminator insulin use (HCC) EGFR Routine 10/13/2024 10:40 AM ARBORICULTURIST VELASCO (nonalcoholic steatohepatitis) IMMATURE PLATELET FRACTION Routine 10/13 10:40 AM ARBORICULTURIST VELASCO (nonalcoholic steatohepatitis) DIFFERENTIAL AUTO Routine 10/13/2024 10:40 AM ARBORICULTURIST VELASCO (nonalcoholic steatohepatitis) CBC WITH AUTO DIFFERENTIAL Routine 10/13 10:40 AM ARBORICULTURIST VELASCO (nonalcoholic steatohepatitis) PROTIME-INR Routine 10/13/2024 10:40 AM ARBORICULTURIST VELASCO (nonalcoholic steatohepatitis) COMPREHENSIVE METABOLIC PANEL Routine 10:40 AM ARBORICULTURIST VELASCO (nonalcoholic steatohepatitis) HLA ANTIBODY SCREEN BY PRA O R SAB PER SCHEDULE (CLASS I AND CLASS II) Routine 10/12/2024 11:45 AM ARBORICULTURIST ESRD (end stage renal disease) (HCC) PROTIME-INR Routine 10/05/2024 COMPREHENSIVE METABOLIC PANEL Routine 10/05/2024 POCT GLUCOSE DEVICE Routine 10/02/2024 4:21 PM ARBORICULTURIST SEPTIC TECHNICIAN EVALUATE AND TREAT FIBEROPTIC ENDOSCOPIC SWALLOW Routine 10/02/2024 1:07 PM ARBORICULTURIST POCT GLUCOSE DEVICE Routine 10/02/2024 11:33 AM ARBORICULTURIST POCT GLUCOSE DEVICE Routine 10/02/2024 7:14 AM ARBORICULTURIST POCT GLUCOSE DEVICE Routine 10/02/2024 4:19 AM ARBORICULTURIST EGFR Routine 10/01/2024 9:18 PM ARBORICULTURIST MAGNESIUM Routine 10/01/2024 9:18 PM ARBORICULTURIST PHOSPHORUS Routine 10/01/2024 9:18 PM ARBORICULTURIST PROTIME-INR Routine 10/01/2024 9:18 PM ARBORICULTURIST COMPREHENSIVE METABOLIC PANEL Routine 9:18 PM ARBORICULTURIST POCT GLUCOSE DEVICE Routine 10/01/2024 7:35 PM ARBORICULTURIST POCT GLUCOSE DEVICE Routine 10/01/2024 7:34 PM ARBORICULTURIST POCT GLUCOSE DEVICE Routine 10/01/2024 5:12 PM ARBORICULTURIST POCT GLUCOSE DEVICE Routine 10/01/2024 11:45 AM ARBORICULTURIST POCT GLUCOSE DEVICE Routine 10/01/2024 7:45 AM ARBORICULTURIST EGFR Routine 09/30/2024 9:22 PM ARBORICULTURIST DIFFERENTIAL AUTO Timed 09/30/2024 9:22 PM ARBORICULTURIST VITAMIN D 25 HYDROXY Timed 09/30/2024 9:22 PM ARBORICULTURIST PTH Timed 09/30/2024 9:22 PM ARBORICULTURIST CBC WITH AUTO DIFFERENTIAL Timed 09/30 9:22 PM ARBORICULTURIST MAGNESIUM Routine 09/30/2024 9:22 PM ARBORICULTURIST PHOSPHORUS Routine 09/30/2024 9:22 PM ARBORICULTURIST PROTIME-INR Routine 09/30/2024 9:22 PM ARBORICULTURIST COMPREHENSIVE METABOLIC PANEL Routine 9:22 PM ARBORICULTURIST POCT GLUCOSE DEVICE Routine 09/30/2024 7:58 PM ARBORICULTURIST POCT GLUCOSE DEVICE Routine 09/30/2024 4:20 PM ARBORICULTURIST POCT GLUCOSE DEVICE Routine 09/30/2024 11:43 AM ARBORICULTURIST POCT GLUCOSE DEVICE Routine 09/30/2024 7:54 AM ARBORICULTURIST POCT GLUCOSE DEVICE Routine 09/30/2024 7:36 AM ARBORICULTURIST POCT GLUCOSE DEVICE Routine 09/30/2024 12:28 AM ARBORICULTURIST EGFR Routine 09/29/2024 8:49 PM ARBORICULTURIST MAGNESIUM Routine 09/29/2024 8:49 PM ARBORICULTURIST PHOSPHORUS Routine 09/29/2024 8:49 PM ARBORICULTURIST PROTIME-INR Routine 09/29/2024 8:49 PM ARBORICULTURIST COMPREHENSIVE METABOLIC PANEL Routine 8:49 PM ARBORICULTURIST POCT GLUCOSE DEVICE Routine 09/29/2024 8:08 PM ARBORICULTURIST POCT GLUCOSE DEVICE Routine 09/29/2024 4:50 PM ARBORICULTURIST POCT GLUCOSE DEVICE Routine 09/29/2024 11:35 AM ARBORICULTURIST SEPTIC TECHNICIAN EVALUATE AND TREAT FIBEROPTIC ENDOSCOPIC SWALLOW Routine 09/29/2024 10:55 AM ARBORICULTURIST SEPTIC TECHNICIAN EVALUATE AND TREAT VIDEOFLUOROSCOPIC SWALLOW STUDY Routine 09/29/2024 10:55 AM ARBORICULTURIST POCT GLUCOSE DEVICE Routine 09/29/2024 7:34 AM ARBORICULTURIST POCT GLUCOSE DEVICE Routine 09/29/2024 4:49 AM ARBORICULTURIST POCT GLUCOSE DEVICE Routine 09/29/2024 12:25 AM ARBORICULTURIST HEMOGLOBIN A1C Routine 09/28/2024 9:17 PM ARBORICULTURIST EGFR Routine 09/28/2024 9:17 PM ARBORICULTURIST DIFFERENTIAL AUTO Routine 09/28/2024 9:17 PM ARBORICULTURIST MAGNESIUM Routine 09/28/2024 9:17 PM ARBORICULTURIST PHOSPHORUS Routine 09/28/2024 9:17 PM ARBORICULTURIST PROTIME-INR Routine 09/28/2024 9:17 PM ARBORICULTURIST CBC WITH AUTO DIFFERENTIAL Routine 09/28 9:17 PM ARBORICULTURIST COMPREHENSIVE METABOLIC PANEL Routine 9:17 PM ARBORICULTURIST POCT GLUCOSE DEVICE Routine 09/28/2024 7:57 PM ARBORICULTURIST POCT GLUCOSE DEVICE Routine 09/28/2024 4:31 PM ARBORICULTURIST POCT GLUCOSE DEVICE Routine 09/28/2024 11:23 AM ARBORICULTURIST POCT GLUCOSE DEVICE Routine 09/28/2024 8:01 AM ARBORICULTURIST POCT GLUCOSE DEVICE Routine 09/28/2024 4:52 AM ARBORICULTURIST POCT GLUCOSE DEVICE Routine 09/28/2024 12:29 AM ARBORICULTURIST EGFR Routine 09/28/2024 12:06 AM ARBORICULTURIST DIFFERENTIAL AUTO Routine 09/28/2024 12:06 AM ARBORICULTURIST MAGNESIUM Routine 09/28/2024 12:06 AM ARBORICULTURIST PHOSPHORUS Routine 09/28/2024 12:06 AM ARBORICULTURIST PROTIME-INR Routine 09/28/2024 12:06 AM ARBORICULTURIST CBC WITH AUTO DIFFERENTIAL Routine 09/28 12:06 AM ARBORICULTURIST COMPREHENSIVE METABOLIC PANEL Routine 12:06 AM ARBORICULTURIST POCT GLUCOSE DEVICE Routine 09/27/2024 11:55 PM ARBORICULTURIST POCT GLUCOSE DEVICE Routine 09/27/2024 8:03 PM ARBORICULTURIST POCT GLUCOSE DEVICE Routine 09/27/2024 4:26 PM ARBORICULTURIST POCT GLUCOSE DEVICE Routine 09/27/2024 11:49 AM ARBORICULTURIST POCT GLUCOSE DEVICE Routine 09/27/2024 8:05 AM ARBORICULTURIST POCT GLUCOSE DEVICE Routine 09/27/2024 4:24 AM ARBORICULTURIST POCT GLUCOSE DEVICE Routine 09/26/2024 11:20 PM ARBORICULTURIST EGFR Routine 09/26/2024 9:23 PM ARBORICULTURIST DIFFERENTIAL AUTO Routine 09/26/2024 9:23 PM ARBORICULTURIST MAGNESIUM Routine 09/26/2024 9:23 PM ARBORICULTURIST PHOSPHORUS Routine 09/26/2024 9:23 PM ARBORICULTURIST PROTIME-INR Routine 09/26/2024 9:23 PM ARBORICULTURIST CBC WITH AUTO DIFFERENTIAL Routine 09/26 9:23 PM ARBORICULTURIST COMPREHENSIVE METABOLIC PANEL Routine 9:23 PM ARBORICULTURIST POCT GLUCOSE DEVICE Routine 09/26/2024 7:53 PM ARBORICULTURIST POCT GLUCOSE DEVICE Routine 09/26/2024 4:37 PM ARBORICULTURIST EGFR Timed 09/26/2024 3:40 PM ARBORICULTURIST BASIC METABOLIC PANEL Timed 09/26/2024 3:40 PM ARBORICULTURIST POCT GLUCOSE DEVICE Routine 09/26/2024 11:16 AM ARBORICULTURIST POCT GLUCOSE DEVICE Routine 09/26/2024 9:40 AM ARBORICULTURIST LACTATE Timed 09/26/2024 8:16 AM ARBORICULTURIST POCT GLUCOSE DEVICE Routine 09/26/2024 7:45 AM ARBORICULTURIST POCT GLUCOSE DEVICE Routine 09/26/2024 4:[address] ABDOMEN PELVIS WO CONTRAST IP Routine 3:17 AM ARBORICULTURIST LACTATE Timed 09/26/2024 12:44 AM ARBORICULTURIST POCT GLUCOSE DEVICE Routine 09/26/2024 12:08 AM ARBORICULTURIST EGFR Routine 09/25/2024 10:48 PM ARBORICULTURIST DIFFERENTIAL AUTO Routine 09/25/2024 10:48 PM ARBORICULTURIST PROTIME-INR Routine 09/25/2024 10:48 PM ARBORICULTURIST CBC WITH AUTO DIFFERENTIAL Routine 09/25 10:48 PM ARBORICULTURIST COMPREHENSIVE METABOLIC PANEL Routine 10:48 PM ARBORICULTURIST POCT GLUCOSE DEVICE Routine 09/25/2024 8:27 PM ARBORICULTURIST POCT GLUCOSE DEVICE Routine 09/25/2024 6:12 PM ARBORICULTURIST POCT GLUCOSE DEVICE Routine 09/25/2024 4:12 PM ARBORICULTURIST CRITICAL RESULT CALLBACK CHEMISTRY Timed 09/25/2024 3:24 PM ARBORICULTURIST LACTATE Timed 09/25/2024 3:24 PM ARBORICULTURIST SODIUM, URINE, RANDOM Routine 09/25/2024 3:24 PM ARBORICULTURIST URINALYSIS AND REFLEX TO MICROSCOPIC AND CULTURE STAT 09/25/2024 3:24 PM ARBORICULTURIST POCT GLUCOSE DEVICE Routine 09/25/2024 2:41 PM ARBORICULTURIST POCT GLUCOSE DEVICE Routine 09/25/2024 12:32 PM ARBORICULTURIST TROPONIN I HIGH-SENSITIVITY 4-HOUR Timed 09/25/2024 11:38 AM ARBORICULTURIST POCT GLUCOSE DEVICE Routine 09/25/2024 11:14 AM ARBORICULTURIST CRITICAL RESULT CALLBACK CARDIO CHEM Timed 09/25/2024 9:51 AM ARBORICULTURIST TROPONIN I HIGH-SENSITIVITY 2-HOUR Timed 09/25/2024 9:51 AM ARBORICULTURIST POCT GLUCOSE DEVICE Routine 09/25/2024 9:19 AM ARBORICULTURIST TROPONIN I HIGH-SENSITIVITY SERIES (BASELINE, 2HR, 4HR, 6HR) Timed 09/25/2024 7:44 AM ARBORICULTURIST LACTATE Timed 09/25/2024 7:44 AM ARBORICULTURIST POCT GLUCOSE DEVICE Routine 09/25/2024 7:32 AM ARBORICULTURIST POCT GLUCOSE DEVICE Routine 09/25/2024 4:12 AM ARBORICULTURIST POCT GLUCOSE DEVICE Routine 09/25/2024 2:52 AM ARBORICULTURIST XR ABDOMEN AP 1 VIEW IP Routine 09/25/2024 1:32 AM ARBORICULTURIST POCT GLUCOSE DEVICE Routine 09/25/2024 12:11 AM ARBORICULTURIST MAGNESIUM Routine 09/24/2024 11:56 PM ARBORICULTURIST EGFR Routine 09/24/2024 11:56 PM ARBORICULTURIST DIFFERENTIAL AUTO Routine 09/24/2024 11:56 PM ARBORICULTURIST PROTIME-INR Routine 09/24/2024 11:56 PM ARBORICULTURIST [id number], TUMOR MARKER Timed 09/24/2024 11:56 PM ARBORICULTURIST CBC WITH AUTO DIFFERENTIAL Routine 09/24 11:56 PM ARBORICULTURIST PHOSPHORUS Routine 09/24/2024 11:56 PM ARBORICULTURIST COMPREHENSIVE METABOLIC PANEL Routine 11:56 PM ARBORICULTURIST TROPONIN I HIGH-SENSITIVITY 6-HOUR Timed 09/24/2024 11:56 PM ARBORICULTURIST CRITICAL RESULT CALLBACK CHEMISTRY Timed 09/24/2024 11:55 PM ARBORICULTURIST SEPSIS LACTATE WITH REFLEX Timed 09/24 11:55 PM ARBORICULTURIST POCT GLUCOSE DEVICE Routine 09/24/2024 11:08 PM ARBORICULTURIST XR CHEST 1 VIEW ED Urgent/IP Urgent 09/24/2024 11:02 PM ARBORICULTURIST US LIVER DOPPLER COMPLETE IP Routine 2024 9:07 PM ARBORICULTURIST POCT GLUCOSE DEVICE Routine 09/24/2024 8:08 PM ARBORICULTURIST PA CRITICAL CARE ILL/INJURED PATIENT INIT 30-74 MIN Routine 09/24/2024 4:23 PM ARBORICULTURIST CRITICAL RESULT CALLBACK CHEMISTRY Timed 09/24/2024 2:37 PM ARBORICULTURIST SEPSIS LACTATE WITH REFLEX Timed 09/24 2:37 PM ARBORICULTURIST TROPONIN I HIGH-SENSITIVITY 2-HOUR Timed 09/24/2024 2:36 PM ARBORICULTURIST BLOOD CULTURE STAT 09/24/2024 2:36 PM ARBORICULTURIST RESPIRATORY PATHOGEN PANEL STAT 09/24 1:39 PM ARBORICULTURIST BLOOD CULTURE STAT 09/24/2024 1:39 PM ARBORICULTURIST XR CHEST 1 VIEW ED 09/24/2024 12:59 PM ARBORICULTURIST POCT KETONE, BLOOD Routine 09/24/2024 12:40 PM ARBORICULTURIST POCT GLUCOSE DEVICE Routine 09/24/2024 12:37 PM ARBORICULTURIST EGFR STAT 09/24/2024 12:35 PM ARBORICULTURIST DIFFERENTIAL AUTO STAT 09/24/2024 12:35 PM ARBORICULTURIST CRITICAL RESULT CALLBACK CHEMISTRY STAT 09/24/2024 12:35 PM ARBORICULTURIST AMMONIA STAT 09/24/2024 12:35 PM ARBORICULTURIST TYPE AND SCREEN STAT 09/24/2024 12:35 PM ARBORICULTURIST APTT STAT 09/24/2024 12:35 PM ARBORICULTURIST PROTIME-INR STAT 09/24/2024 12:35 PM ARBORICULTURIST TROPONIN I HIGH-SENSITIVITY SERIES (BASELINE, 2HR, 4HR, 6HR) STAT 09/24/2024 12:35 PM ARBORICULTURIST SEPSIS LACTATE WITH REFLEX STAT 09/24 12:35 PM ARBORICULTURIST HEPATIC FUNCTION PANEL STAT 12:35 PM ARBORICULTURIST BASIC METABOLIC PANEL STAT 09/24/2024 12:35 PM ARBORICULTURIST CBC WITH AUTO DIFFERENTIAL STAT 09/24 12:35 PM ARBORICULTURIST BLOOD GAS, VENOUS STAT 09/24/2024 12:[address] OUTSIDE CONSULT Routine 025 12:33 PM ARBORICULTURIST XR TRANSFER OF OUTSIDE FILMS Routine 12:28 PM ARBORICULTURIST HLA ANTIBODY SCREEN - SAB (CLASS I AND CLASS II) Routine 09/21/2024 1:00 PM ARBORICULTURIST ESRD (end stage renal disease) (HCC) HLA ANTIBODY SCREEN BY PRA O R SAB PER SCHEDULE (CLASS I AND CLASS II) Routine 09/21/2024 1:00 PM ARBORICULTURIST ESRD (end stage renal disease) (HCC) PAP AND HIGH RISK HPV, REFLE X TO GENOTYPING Routine 04/28/2024 10:41 AM CDT SCREENING MAMMOGRAM BILATERA L W PAL IP Routine 04/27/2024 1:55 PM CDT LIPID PANEL Routine 04/22/2024 12:58 AM CDT HEPATITIS C ANTIBODY Routine 06/16/2023 6:09 AM ARBORICULTURIST COLONOSCOPY 05/30/2022 9:28 AM CDT ALBUMIN CREATININE RATIO, URINE Routine 03/01/2021 2:45 PM CDT Type 2 diabetes mellitus without complication, unspecified whether 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 Room: [facility] ENDOSCOPY ROOM 03 Note Status: Finalized [...] and oxygen saturations were monitored continuously. The [id number] was introduced through the mouth, and advanced [...] - [facility] - [facility] to [facility] clinic as previously scheduled. Attending Participation: I personally performed the entire procedure. Electronically signed by Mercy Adler MD Mercy Adler M.D. 12/14/2024 9:32:29 AM Number of Addenda: 0 Note Initiated On: 12/14/2024 8:57 AM us Mercy Adler MD PhD ENDOSCOPY PROC EDURES Final Result * POCT glucose (12/14/2024 8:56 AM CDT) Pathologist [facility] Glucose, POC 131 70 - 199 mg/dL Comment: Interpretive Data Glucose is assumed to be non-fasting. Fasting Glucose reference ranges are: 0 - 150 years: 70 mg/dL - 99 mg/dL Current interpretive data was last revised on 2014. POC Performer [id number] [employer] [facility] POC Device Number [id number] [facility] Blood 12/14/2024 8:56 AM CDT 12/14/2024 8:56 AM CDT us Mercy Adler MD PhD LAB POCT ORDER RAVEN - DEVICE Final Result [facility] [id number] [facility] Department [place] [address] * (ABNORMAL) eGFR (12/04/2024 1:50 PM CDT) Pathologist [facility] eGFR 39(L) >=60 mL/min/1. 73 m2 Comment: [...] MD LAB BLOOD ORDERABLES Fin al Result [facility] Department [place] [address] * (ABNORMAL) Differential, auto (12/04/2024 1:50 PM CDT) Pathologist [facility] Neutrophil abs 2.07 1.50 - 6.50 K/cumm Imm gran abs 0.01 0.00 - 0.10 K/cumm [facility] Lymphocyte abs 0.76(L) 0.80 - 3.30 K/cumm [facility] Monocyte abs 0.28 0.20 - 0.80 K/cumm [facility] Eosinophil abs 0.53(H) 0.00 - 0.50 K/cumm [facility] Basophil abs 0.02 0.00 - 0.10 K/cumm [facility] Neutrophil pct 56.5 % [facility] Comment: Interpretive Data Percent cell count reference ranges are not reported, since discordance with absolute values may lead to misinterpretation of CBC data. Current Interpretive Data was last revised on 2017. Imm gran pct 0.3 % [facility] Comment: Interpretive Data Percent cell count reference ranges are not reported, since discordance with absolute values may lead to misinterpretation of CBC data. Current Interpretive Data was last revised on 2017. Lymphocyte pct 20.7 % [facility] Comment: Interpretive Data Percent cell count reference ranges are not reported, since discordance with absolute values may lead to misinterpretation of CBC data. Current Interpretive Data was last revised on 2017. Monocyte pct 7.6 % [facility] Comment: Interpretive Data Percent cell count reference ranges are not reported, since discordance with absolute values may lead to misinterpretation of CBC data. Current Interpretive Data was last revised on 2017. Eosinophil pct 14.4 % [facility] Comment: Interpretive Data Percent cell count reference ranges are not reported, since discordance with absolute values may lead to misinterpretation of CBC data. Current Interpretive Data was last revised on 2017. Basophil pct 0.5 % [facility] Comment: Interpretive Data Percent cell count reference ranges are not reported, since discordance with absolute values may lead to misinterpretation of CBC data. Current Interpretive Data was last revised on 2017. Blood 12/04/2024 1:50 PM CDT 12/04/2024 3:08 PM CDT us Taiwo Vázquez MD LAB BLOOD ORDERABLES Fin al Result [facility] Department [place] [address] * (ABNORMAL) CBC with auto differential (12/04/2024 1:50 PM CDT) WBC 3.67(L) 3.80 - 9.90 K/cumm Hgb 10.4(L) 11.9 - 15.5 g/dL [facility] Hct 30.5(L) 35.6 - 45.5 % [facility] Plt 53(L) 150 - 400 K/cumm [facility] MPV 11.9 9.1 - 12.3 fL [facility] RBC 3.29(L) 3.90 - 5.20 M/cumm [facility] MCV 92.7 81.3 - 96.4 fL [facility] MCH 31.6 27.1 - 33.3 pg [facility] MCHC 34.1 32.3 - 35.7 g/dL [facility] RDW CV 14.6 11.1 - 14.9 % [facility] RDW SD 49.7(H) 35.7 - 48.1 fL [facility] NRBC abs 0.00 0.00 - 0.01 K/cumm [facility] Blood 12/04/2024 1:50 PM CDT 12/04/2024 3:08 PM CDT Taiwo Vázquez MD LAB BLOOD ORDERABLES [facility] al Result Performing Organization Address [facility] de Phone Number [facility] [place] [employer] [address] * (ABNORMAL) Protime-INR (12/04/2024 1:50 PM CDT) PT 15.6(H) 9.7 - 13.0 sec INR 1.43(H) 0.90 - 1.20 [facility] Comment: Interpretive data Oral anticoagulant therapeutic ranges: Venous thromboembolism prophylaxis or treatment: 2.0-3.0 CARDIOLOGY Standard range: 2.0-3.0 High-intensity range: 2.5-3.5 Refer to indication-specific guidelines for appropriate target ranges for prosthetic heart valve replacement. Current interpretive data was last revised on 2019. Blood 12/04/2024 1:50 PM CDT 12/04/2024 3:08 PM CDT Taiwo Vázquez MD LAB BLOOD ORDERABLES [facility] al Result Performing Organization Address [facility] Co de Phone Number [facility] Department [place] [employer] [address] * (ABNORMAL) Bilirubin, direct (12/04/2024 1:50 PM CDT) Bilirubin, direct 0.8(H) 0.1 - 0.3 mg/dL Blood 12/04/2024 1:50 PM CDT 12/04/2024 3:08 PM CDT us Taiwo Vázquez MD LAB BLOOD ORDERABLES Fin al Result [facility] Department [place] [address] * (ABNORMAL) Comprehensive metabolic panel (12/04/2024 1:50 PM CDT) Sodium 145 135 - 145 mmol/L Potassium, pl 3.5 3.3 - 4.9 mmol/L [facility] Chloride 108 97 - 110 mmol/L [facility] CO2 33(H) 22 - 32 mmol/L [facility] Anion gap 4 2 - 15 mmol/L [facility] BUN 16 6 - 25 mg/dL [facility] Creatinine 1.49(H) 0.60 - 1.10 mg/dL [facility] Glucose 139 70 - 199 mg/dL [facility] Comment: Interpretive Data Fasting glucose >/= [...] Calcium 8.9 8.5 - 10.3 mg/dL [facility] Bilirubin, total 1.8(H) 0.1 - 1.2 mg/dL [facility] Protein, pl 6.0(L) 6.5 - 8.5 g/dL [facility] Albumin 3.2(L) 3.5 - 5.0 g/dL [facility] Alk phos 98 40 - 130 Units/L [facility] ALT 17 7 - 45 Units/L [facility] AST 34 10 - 45 Units/L [facility] Blood 12/04/2024 1:50 PM CDT 12/04/2024 3:08 PM CDT Taiwo Vázquez MD LAB BLOOD ORDERABLES Fin al Result Performing Organization Address City/[facility] Co de Phone Number [facility] Department [place] [address] * (ABNORMAL) eGFR (11/25/2024 9:40 AM CDT) [...] 9:40 AM CDT 11/25/2024 10:18 AM CDT Taiwo Vázquez MD LAB BLOOD ORDERABLES Fin al Result [facility] Department [place] [address] * (ABNORMAL) Differential, auto (11/25/2024 9:40 AM CDT) Pathologist [facility] Neutrophil abs 2.43 1.50 - 6.50 K/cumm Imm gran abs 0.00 0.00 - 0.10 K/cumm [facility] Lymphocyte abs 0.68(L) 0.80 - 3.30 K/cumm [facility] Monocyte abs 0.33 0.20 - 0.80 K/cumm [facility] Eosinophil abs 0.63(H) 0.00 - 0.50 K/cumm [facility] Basophil abs 0.02 0.00 - 0.10 K/cumm [facility] Neutrophil pct 59.4 % [facility] Comment: Interpretive Data Percent cell count reference ranges are not reported, since discordance with absolute values may lead to misinterpretation of CBC data. Current Interpretive Data was last revised on 2017. Imm gran pct 0.0 % [facility] Comment: Interpretive Data Percent cell count reference ranges are not reported, since discordance with absolute values may lead to misinterpretation of CBC data. Current Interpretive Data was last revised on 2017. Lymphocyte pct 16.6 % [facility] Comment: Interpretive Data Percent cell count reference ranges are not reported, since discordance with absolute values may lead to misinterpretation of CBC data. Current Interpretive Data was last revised on 2017. Monocyte pct 8.1 % [facility] Comment: Interpretive Data Percent cell count reference ranges are not reported, since discordance with absolute values may lead to misinterpretation of CBC data. Current Interpretive Data was last revised on 2017. Eosinophil pct 15.4 % [facility] Comment: Interpretive Data Percent cell count reference ranges are not reported, since discordance with absolute values may lead to misinterpretation of CBC data. Current Interpretive Data was last revised on 2017. Basophil pct 0.5 % [facility] Comment: Interpretive Data Percent cell count reference ranges are not reported, since discordance with absolute values may lead to misinterpretation of CBC data. Current Interpretive Data was last revised on 2017. Blood 11/25/2024 9:40 AM CDT 11/25/2024 10:10 AM CDT us Taiwo Vázquez MD LAB BLOOD ORDERABLES Fin al Result [facility] Department [place] [address] * (ABNORMAL) CBC with auto differential (11/25/2024 9:40 AM CDT) [facility] WBC 4.09 3.80 - 9.90 K/cumm Hgb 9.9(L) 11.9 - 15.5 g/dL [facility] Hct 30.5(L) 35.6 - 45.5 % [facility] Plt 52(L) 150 - 400 K/cumm [facility] MPV 11.3 9.1 - 12.3 fL [facility] RBC 3.22(L) 3.90 - 5.20 M/cumm [facility] MCV 94.7 81.3 - 96.4 fL [facility] MCH 30.7 27.1 - 33.3 pg [facility] MCHC 32.5 32.3 - 35.7 g/dL [facility] RDW CV 14.9 11.1 - 14.9 % [facility] RDW SD 51.8(H) 35.7 - 48.1 fL [facility] NRBC abs 0.00 0.00 - 0.01 K/cumm [facility] Blood 11/25/2024 9:40 AM CDT 11/25/2024 10:10 AM CDT us Taiwo Vázquez MD LAB BLOOD ORDERABLES Fin al Result [facility] [place] [address] * Edlts-[id number], Tumor Marker (11/25/2024 9:40 AM CDT) [facility] alpha Fetoprotein <2.0 <=8.3 ng/mL Comment: Interpretive [...] 2018;[id number] Katya House et al. Clin Chem 2014;[id number]. Current interpretive data was last revised 2022. Blood 11/25/2024 9:40 AM CDT 11/25/2024 10:10 AM CDT Taiwo Vázquez MD LAB BLOOD ORDERABLES Fin al Result Performing Organization Address [facility] Co de Phone Number [facility] [employer] [place], [place] [id number] * (ABNORMAL) Protime-INR (11/25/2024 9:40 AM CDT) PT 15.7(H) 9.7 - 13.0 sec INR 1.44(H) 0.90 - 1.20 [facility] Comment: Interpretive data Oral anticoagulant therapeutic ranges: Venous thromboembolism prophylaxis or treatment: 2.0-3.0 CARDIOLOGY Standard range: 2.0-3.0 High-intensity range: 2.5-3.5 Refer to indication-specific guidelines for appropriate target ranges for prosthetic heart valve replacement. Current interpretive data was last revised on 2019. Blood 11/25/2024 9:40 AM CDT 11/25/2024 10:15 AM CDT Taiwo Vázquez MD LAB BLOOD ORDERABLES Fin al Result Performing Organization Address [facility] Co de Phone Number [facility] [place] [place] [address] * Hemoglobin A1c (11/25/2024 9:40 AM CDT) Hgb A1C 5.5 4.0 - 5.6 % Estimated Average Glucose 111 mg/dL [facility] Comment: The ADA recommends reporting an [...] ORDERABLES Fin al Result Performing Organization Address City/[facility] Co de Phone Number [facility] Department [place] [address] * (ABNORMAL) Bilirubin, direct (11/25/2024 9:40 AM CDT) Pathologist [facility] Bilirubin, direct 0.9(H) 0.1 - 0.3 mg/dL Blood 11/25/2024 9:40 AM CDT 11/25/2024 10:10 AM CDT Taiwo Vázquez MD LAB BLOOD ORDERABLES Fin al Result Performing Organization Address [facility] de Phone Number [facility] Department [place] [address] * (ABNORMAL) Comprehensive metabolic panel (11/25/2024 9:40 AM CDT) Sodium 145 135 - 145 mmol/L Potassium, pl 3.4 3.3 - 4.9 mmol/L [facility] Chloride 108 97 - 110 mmol/L [facility] CO2 31 22 - 32 mmol/L [facility] Anion gap 6 2 - 15 mmol/L [facility] BUN 13 6 - 25 mg/dL [facility] Creatinine 1.26(H) 0.60 - 1.10 mg/dL [facility] Glucose 129 70 - 199 mg/dL [facility] Comment: Interpretive Data Fasting glucose >/= [...] 2022. Calcium 8.6 8.5 - 10.3 mg/dL [facility] Bilirubin, total 2.1(H) 0.1 - 1.2 mg/dL [facility] Protein, pl 5.8(L) 6.5 - 8.5 g/dL [facility] Albumin 3.1(L) 3.5 - 5.0 g/dL [facility] Alk phos 96 40 - 130 Units/L [facility] ALT 19 7 - 45 Units/L [facility] AST 30 10 - 45 Units/L [facility] Blood 11/25/2024 9:40 AM CDT 11/25/2024 10:10 AM CDT us Taiwo Vázquez MD LAB BLOOD ORDERABLES Fin al Result [facility] [place] [address] * HLA Antibody Screen by PRA or SAB per Schedule (Class I and Class II) (11/19/2024 2:00 PM CDT) Blood 11/19/2024 2:00 PM CDT Narrative [facility] - ARBORICULTURIST Sample received in lab. Single Antigen Antibody Screen ordered. us Timothy Pardo MD LAB BLOOD ORDERABL ES Final Result [facility] * HLA Antibody Screen - SAB (Class I and Class II) (11/19/2024 2:00 PM CDT) [facility] Class I Treatment EDTA [facility] Class I [...] a method developed and validated by the [facility] HLA laboratory based on an FDA-approved IVD kit (LABScreen Single-Antigen, [employer], [place], [place]). All patient serum samples are pretreated with EDTA before the screen to prevent complement interference. Additional serum treatments, such as adsorption and DTT treatment, may be performed as indicated. Interpretive comments: Low risk: MFI [id number]. Moderate risk: MFI [id number]. Increased risk: MFI >/= 5000. The presence [...] antigens to avoid. Testing performed at the [facility], [address], [facility], [place], [address]. IA # [id number]. Rani Smith, Ph.D., Hr Assistant, HLA Laboratory Aurelio Palafox M.D., Ph.D., Slusher Operator, HLA Laboratory Norma Talamantes, Ph.D., CLIA Slusher Operator, [facility] Current methodology and interpretive comments last revised on 09/06/2022. us Timothy Pardo MD LAB BLOOD ORDERABL ES Final Result Performing Organization Address City/State/ZIP Co ne Phone Number [facility] * [place] Modified Barium Swallow W [...] Jenkins M.D. Molina Dsouza MD IMG FLUOROSCOPY PA OCEDURES Final Result * POCT glucose (10/14/2024 12:20 PM ARBORICULTURIST) Glucose Blood, POC 235 mg/dL Blood 10/14/2024 12:2 0 PM ARBORICULTURIST Sylvain Aguilera MD POINT OF CARE TEST ORDERABLES Final Result * Immature platelet fraction (10/13/2024 10:40 AM ARBORICULTURIST) IPF 4.0 1.6 - 10.1 % Blood 10/13/2024 10:4 0 AM ARBORICULTURIST 10/13/2024 11:29 AM ARBORICULTURIST Molina Charles MD LAB BLOOD ORDERABLES Final Result [facility] Department [place] [address] * (ABNORMAL) eGFR (10/13/2024 10:40 AM ARBORICULTURIST) Pathologist [facility] eGFR 50(L) >=60 mL/min/1. 73 m2 Comment: [...] reviewed 2021. Blood 10/13/2024 10:4 0 AM ARBORICULTURIST 10/13/2024 11:41 AM ARBORICULTURIST Molina Charles MD LAB BLOOD ORDERABLES Final Result [facility] Department [place] [address] * (ABNORMAL) Differential, auto (10/13/2024 10:40 AM ARBORICULTURIST) Pathologist [facility] Neutrophil abs 1.9 1.5 - 6.5 K/cumm Imm gran abs 0.0 0.0 - 0.1 K/cumm [facility] Lymphocyte abs 0.6(L) 0.8 - 3.3 K/cumm [facility] Monocyte abs 0.4 0.2 - 0.8 K/cumm [facility] Eosinophil abs 0.3 0.0 - 0.5 K/cumm [facility] Basophil abs 0.0 0.0 - 0.1 K/cumm [facility] Neutrophil pct 59.5 % [facility] Comment: Interpretive Data Percent cell count reference ranges are not reported, since discordance with absolute values may lead to misinterpretation of CBC data. Current Interpretive Data was last revised on 2017. Imm gran pct 0.3 % [facility] Comment: Interpretive Data Percent cell count reference ranges are not reported, since discordance with absolute values may lead to misinterpretation of CBC data. Current Interpretive Data was last revised on 2017. Lymphocyte pct 19.3 % [facility] Comment: Interpretive Data Percent cell count reference ranges are not reported, since discordance with absolute values may lead to misinterpretation of CBC data. Current Interpretive Data was last revised on 2017. Monocyte pct 11.9 % [facility] Comment: Interpretive Data Percent cell count reference ranges are not reported, since discordance with absolute values may lead to misinterpretation of CBC data. Current Interpretive Data was last revised on 2017. Eosinophil pct 8.4 % [facility] Comment: Interpretive Data Percent cell count reference ranges are not reported, since discordance with absolute values may lead to misinterpretation of CBC data. Current Interpretive Data was last revised on 2017. Basophil pct 0.6 % [facility] Comment: Interpretive Data Percent cell count reference ranges are not reported, since discordance with absolute values may lead to misinterpretation of CBC data. Current Interpretive Data was last revised on 2017. Blood 10/13/2024 10:4 0 AM ARBORICULTURIST 10/13/2024 11:21 AM ARBORICULTURIST us Molina Charles MD LAB BLOOD ORDERABLES Final Result [facility] Department of Laboratories [place], [place] [id number] * (ABNORMAL) CBC with auto differential (10/13/2024 10:40 AM ARBORICULTURIST) WBC 3.1(L) 3.8 - 9.9 K/cumm Hgb 9.6(L) 11.9 - 15.5 g/dL [facility] Hct 29.5(L) 35.6 - 45.5 % [facility] Plt 46(C) 150 - 400 K/cumm [facility] Comment:No clot detected in sample. JOSEPH SOLER. Critical result called to and read back by JOSEPH SOLER on 10 13 2024 at 1157 to Beth Nuñez. MPV 11.6 9.1 - 12.3 fL [facility] RBC 3.02(L) 3.90 - 5.20 M/cumm [facility] MCV 97.7(H) 81.3 - 96.4 fL [facility] MCH 31.8 27.1 - 33.3 pg [facility] MCHC 32.5 32.3 - 35.7 g/dL [facility] RDW CV 15.6(H) 11.1 - 14.9 % [facility] RDW SD 55.7(H) 35.7 - 48.1 fL [facility] NRBC abs 0.00 0.00 - 0.01 K/cumm [facility] Blood 10/13/2024 10:4 0 AM ARBORICULTURIST 10/13/2024 11:21 AM ARBORICULTURIST Molina Charles MD LAB BLOOD ORDERABLES Final Result [facility] Department [place] [address] * (ABNORMAL) Protime-INR (10/13/2024 10:40 AM ARBORICULTURIST) PT 15.5(H) 9.7 - 13.0 sec INR 1.42(H) 0.90 - 1.20 [facility] Comment: Interpretive data Oral anticoagulant therapeutic ranges: Venous thromboembolism prophylaxis or treatment: 2.0-3.0 CARDIOLOGY Standard range: 2.0-3.0 High-intensity range: 2.5-3.5 Refer to indication-specific guidelines for appropriate target ranges for prosthetic heart valve replacement. Current interpretive data was last revised on 2019. Blood 10/13/2024 10:4 0 AM ARBORICULTURIST 10/13/2024 11:21 AM ARBORICULTURIST us Molina Charles MD LAB BLOOD ORDERABLES Final Result [facility] Department [place] [address] * (ABNORMAL) Comprehensive metabolic panel (10/13/2024 10:40 AM ARBORICULTURIST) Pathologist [facility] Sodium 139 135 - 145 mmol/L Potassium, pl 4.2 3.3 - 4.9 mmol/L [facility] Chloride 101 97 - 110 mmol/L [facility] CO2 29 22 - 32 mmol/L [facility] Anion gap 9 2 - 15 mmol/L [facility] BUN 18 6 - 25 mg/dL [facility] Creatinine 1.22(H) 0.60 - 1.10 mg/dL [facility] Glucose 292(H) 70 - 199 mg/dL [facility] Comment: Interpretive Data Fasting glucose >/= [...] 2022. Calcium 9.2 8.5 - 10.3 mg/dL [facility] Bilirubin, total 2.5(H) 0.1 - 1.2 mg/dL [facility] Protein, pl 5.9(L) 6.5 - 8.5 g/dL [facility] Albumin 3.4(L) 3.5 - 5.0 g/dL [facility] Alk phos 91 40 - 130 Units/L [facility] ALT 33 7 - 45 Units/L [facility] AST 40 10 - 45 Units/L [facility] Blood 10/13/2024 10:4 0 AM ARBORICULTURIST 10/13/2024 11:21 AM ARBORICULTURIST Molina Charles MD LAB BLOOD ORDERABLES Final Result [facility] Department [place] [address] * HLA Antibody Screen by PRA or SAB per Schedule (Class I and Class II) (10/12/2024 11:45 AM ARBORICULTURIST) Blood 10/12/2024 11:4 5 AM ARBORICULTURIST Narrative [facility] - ARBORICULTURIST Sample received in lab and stored. No testing performed at this time. Timothy Pardo MD LAB BLOOD ORDERABL ES Final Result Performing Organization Address [facility] Co de Phone Number [facility] * (ABNORMAL) [...] * (ABNORMAL) POCT glucose (10/02/2024 4:21 PM ARBORICULTURIST) Glucose, POC 407(H) 70 - 199 mg/dL Comment:Glu2: RN/MD Notified Glucose comment 1 Glu2: RN/MD Notified [facility] Blood 10/02/2024 4:21 PM ARBORICULTURIST 10/02/2024 4:21 PM ARBORICULTURIST Molina Dsouza MD LAB POCT ORDERABLE S - DEVICE Final Result [facility] [place] [address] * SEPTIC TECHNICIAN Evaluate and Treat (FEES) (10/02/2024 1:07 PM ARBORICULTURIST) Narrative [facility] - 10/02/2024 1:07 PM ARBORICULTURIST Sondra Dumont, SEPTIC TECHNICIAN 10/02/2024 3:22 PM Speech-Language Pathology: Flexible Endoscopic Evaluation of Swallowing (FEES) HPI/PMH HPI/PMH: 63 y.o. F [facility] and CKD currently listed for a simultaneous liver-kidney transplant (SLK), HTN, T2DM, atrial flutter, and ERNESTINE who presented to [facility] 09/24 as an OSH transfer for AMS. Pt was reportedly at baseline until 0400 09/24 when EMS was called to her home as patient was found confused by her . Pt was initially brought to OSH ED, transferred to [facility] ED as she is an active [...] diet/thin liquid General Information Nael Cardoza 10/02/24 SEPTIC TECHNICIAN Received On: 10/02/24 General Observations: Pt seen [...] deficits Secretions: Minimal Consistencies Administered: Thin liquids, [place] thick liquids, Honey thick liquids, Purees, Solids Thin Liquids: Laryngeal Penetration: Present Aspiration Present: Yes Timing: Before, During Amount: Moderate Response to aspiration: None Cough: Non-productive Unsuccessful Modifications: Chin tuck, Cough, Repeat swallow Penetration Aspiration Scale-Thin: 8-Material enters the airway, passes below the vocal folds and no effort is made to eject [place] Scale-Vallecular Residue-Thin Liquids: Moderate [place] Scale-Pyriform Sinus Residue-Thin Liquids: Mild [place] Thickened Liquids: Laryngeal Penetration: Present Aspiration Present: Yes Timing: Before, During Amount: Trace Response to aspiration: None Unsuccessful Modifications: Repeat swallow, Cough, Chin tuck Penetration Aspiration Scale-[place]: 8-Material enters the airway, passes below the vocal folds and no effort is made to eject [place] Scale-Vallecular Residue-[place] Thickened Liquids: Mild [place] Scale-Pyriform Sinus Residue-[place] Thickened Liquids: None Honey Thickened Liquids: Laryngeal Penetration: None Aspiration Present: No Penetration Aspiration Scale-Honey: 1-Material does not enter airway [place] Scale-Vallecular Residue-Honey Thickened Liquids: None Zari Scale-Pyriform Sinus Residue-Honey Thickened Liquids: None Purees: Laryngeal Penetration: None Aspiration Present: No Penetration Aspiration Scale-Puree: 1-Material does not enter airway Zari Scale-Vallecular Residue-Puree: None Zari Scale-Pyriform Sinus Residue-Puree: Trace Solids: Laryngeal Penetration: None Aspiration Present: No Successful Modifications: Repeat swallow Penetration Aspiration Scale-Solids: 1-Material does not enter airway [place] Scale-Vallecular Residue-Solids: Mild [place] Scale-Pyriform Sinus Residue-Solids: None Dysphagia Outcome and Severity Scale: Dysphagia Outcomes and Severity Scale: 4 Mild/Moderate dysphagia Levels 1 & 2 on the ALEJANDRINA indicate need for nonoral nutrition. Treatment Treatment was not provided this date. Please reference care plan for treatment goals and details, if indicated. Plan SEPTIC TECHNICIAN Frequency of Services during current admission: 3-5x/wk SEPTIC TECHNICIAN Recommendation (Add'l Services): Inpatient Rehab Facility Next Visit Plan:treatment/therapy Additional Referrals: PT/OT Discharge Summary Statement If this is the last swallow therapy visit, this serves as the discharge summary. us Molina Dsouza MD SEPTIC TECHNICIAN ORDERABLES Fi nal Result Performing Organization Address [facility] Phone Number [facility] * (ABNORMAL) POCT glucose (10/02/2024 11:33 AM ARBORICULTURIST) Glucose, POC 373(H) 70 - 199 mg/dL Comment:Glu2: TYRA/ Notified Glucose comment 1 Glu2: RN/ Notified [facility] Blood 10/02/2024 11:3 3 AM ARBORICULTURIST 10/02/2024 11:33 AM ARBORICULTURIST us Molina Dsouza MD LAB POCT ORDERABLE S - DEVICE Final Result Performing Organization Address [facility] Phone Number [facility] Department [place] [address] * (ABNORMAL) POCT glucose (10/02/2024 7:14 AM ARBORICULTURIST) Glucose, POC 215(H) 70 - 199 mg/dL Comment:Glu2: TYRA/ Notified Glucose comment 1 Glu2: RN/ Notified [facility] Blood 10/02/2024 7:14 AM ARBORICULTURIST 10/02/2024 7:14 AM ARBORICULTURIST us Molina Dsouza MD LAB POCT ORDERABLE S - DEVICE Final Result Performing Organization Address [facility] Phone Number [facility] Department [place] [address] * POCT glucose (10/02/2024 4:19 AM ARBORICULTURIST) Glucose, POC 194 70 - 199 mg/dL Blood 10/02/2024 4:19 AM ARBORICULTURIST 10/02/2024 4:19 AM ARBORICULTURIST us Molina Dsouza MD LAB POCT ORDERABLE S - DEVICE Final Result [place] [address] * (ABNORMAL) eGFR (10/01/2024 9:18 PM ARBORICULTURIST) Pathologist [facility] eGFR 26(L) >=60 mL/min/1. 73 m2 Comment: [...] last reviewed 2021. Blood 10/01/2024 9:18 PM ARBORICULTURIST 10/01/2024 10:11 PM ARBORICULTURIST us Najma Pires MD LAB BLOOD ORDERABLES Final Result [facility] [place] [address] * (ABNORMAL) Protime-INR (10/01/2024 9:18 PM ARBORICULTURIST) PT 17.6(H) 9.7 - 13.0 sec INR 1.61(H) 0.90 - 1.20 [facility] Comment: Interpretive data Oral anticoagulant therapeutic ranges: Venous thromboembolism prophylaxis or treatment: 2.0-3.0 CARDIOLOGY Standard range: 2.0-3.0 High-intensity range: 2.5-3.5 Refer to indication-specific guidelines for appropriate target ranges for prosthetic heart valve replacement. Current interpretive data was last revised on 2019. Blood 10/01/2024 9:18 PM ARBORICULTURIST 10/01/2024 10:12 PM ARBORICULTURIST us Stuart Flores MD LAB BLOOD ORDERABLES Final Resul t Performing Organization Address [facility] de Phone Number [facility] Department [place] [address] * Phosphorus (10/01/2024 9:18 PM ARBORICULTURIST) Pathologist [facility] Phosphorus, pl 2.4 2.3 - 4.5 mg/dL Blood 10/01/2024 9:18 PM ARBORICULTURIST 10/01/2024 10:11 PM ARBORICULTURIST us Stuart Flores MD LAB BLOOD ORDERABLES Final Resul t Performing Organization Address [facility] de Phone Number [facility] Department [place] [address] * Magnesium (10/01/2024 9:18 PM ARBORICULTURIST) Pathologist [facility] Magnesium 2.1 1.4 - 2.5 mg/dL Blood 10/01/2024 9:18 PM ARBORICULTURIST 10/01/2024 10:11 PM ARBORICULTURIST us Stuart Flores MD LAB BLOOD ORDERABLES Final Resul t Performing Organization Address [facility] de Phone Number [facility] Department [place] [address] * (ABNORMAL) Comprehensive metabolic panel (10/01/2024 9:18 PM ARBORICULTURIST) Sodium 140 135 - 145 mmol/L Potassium, pl 3.5 3.3 - 4.9 mmol/L [facility] Chloride 97 97 - 110 mmol/L [facility] CO2 28 22 - 32 mmol/L [facility] Anion gap 15 2 - 15 mmol/L [facility] BUN 50(H) 6 - 25 mg/dL [facility] Creatinine 2.12(H) 0.60 - 1.10 mg/dL [facility] Glucose 315(H) 70 - 199 mg/dL [facility] Comment: Interpretive Data Fasting glucose >/= [...] 2022. Calcium 10.2 8.5 - 10.3 mg/dL [facility] Bilirubin, total 4.0(H) 0.1 - 1.2 mg/dL [facility] Protein, pl 7.1 6.5 - 8.5 g/dL [facility] Albumin 4.6 3.5 - 5.0 g/dL [facility] Alk phos 70 40 - 130 Units/L [facility] ALT 28 7 - 45 Units/L [facility] AST 54(H) 10 - 45 Units/L [facility] Blood 10/01/2024 9:18 PM ARBORICULTURIST 10/01/2024 10:11 PM ARBORICULTURIST us Najma Pires MD LAB BLOOD ORDERABLES Final Result [facility] [place] [address] * (ABNORMAL) POCT glucose (10/01/2024 7:35 PM ARBORICULTURIST) Glucose, POC 295(H) 70 - 199 mg/dL Blood 10/01/2024 7:35 PM ARBORICULTURIST 10/01/2024 7:35 PM ARBORICULTURIST Molina Dsouza MD LAB POCT ORDERABLE S - DEVICE Final Result Performing Organization Address [facility] Co de Phone Number [facility] [place] [address] * (ABNORMAL) POCT glucose (10/01/2024 7:34 PM ARBORICULTURIST) Glucose, POC 361(H) 70 - 199 mg/dL Blood 10/01/2024 7:3 4 PM ARBORICULTURIST 10/01/2024 7:34 PM ARBORICULTURIST Molina Dsouza MD LAB POCT ORDERABLE S - DEVICE Final Result Performing Organization Address [facility]/ZIP Co de Phone Number [facility] [place] [address] * (ABNORMAL) POCT glucose (10/01/2024 5:12 PM ARBORICULTURIST) Glucose, POC 281(H) 70 - 199 mg/dL Blood 10/01/2024 5:12 PM ARBORICULTURIST 10/01/2024 5:12 PM ARBORICULTURIST us Molina Dsouza MD LAB POCT ORDERABLE S - DEVICE Final Result Performing Organization Address City/[facility]/ZIP Co de Phone Number [facility] [place] [address] * (ABNORMAL) POCT glucose (10/01/2024 11:45 AM ARBORICULTURIST) Glucose, POC 262(H) 70 - 199 mg/dL Blood 10/01/2024 11:4 5 AM ARBORICULTURIST 10/01/2024 11:45 AM ARBORICULTURIST Molina Dsouza MD LAB POCT ORDERABLE S - DEVICE Final Result Performing Organization Address [facility] de Phone Number [facility] Department [place] [address] * POCT glucose (10/01/2024 7:45 AM ARBORICULTURIST) Glucose, POC 176 70 - 199 mg/dL Blood 10/01/2024 7:45 AM ARBORICULTURIST 10/01/2024 7:45 AM ARBORICULTURIST Molina Dsouza MD LAB POCT ORDERABLE S - DEVICE Final Result Performing Organization Address [facility] de Phone Number [facility] Department [place] [address] * (ABNORMAL) eGFR (09/30/2024 9:22 PM ARBORICULTURIST) eGFR 23(L) >=60 mL/min/1. 73 m2 Comment: [...] last reviewed 2021. Blood 09/30/2024 9:22 PM ARBORICULTURIST 09/30/2024 11:32 PM ARBORICULTURIST us Najma Pires MD LAB BLOOD ORDERABLES Final Result [facility] [place] [address] * (ABNORMAL) Differential, auto (09/30/2024 9:22 PM ARBORICULTURIST) Neutrophil abs 3.3 1.5 - 6.5 K/cumm Imm gran abs 0.0 0.0 - 0.1 K/cumm [facility] Lymphocyte abs 1.1 0.8 - 3.3 K/cumm [facility] Monocyte abs 0.7 0.2 - 0.8 K/cumm [facility] Eosinophil abs 0.7(H) 0.0 - 0.5 K/cumm [facility] Basophil abs 0.0 0.0 - 0.1 K/cumm [facility] Neutrophil pct 56.5 % [facility] Comment: Interpretive Data Percent cell count reference ranges are not reported, since discordance with absolute values may lead to misinterpretation of CBC data. Current Interpretive Data was last revised on 2017. Imm gran pct 0.5 % [facility] Comment: Interpretive Data Percent cell count reference ranges are not reported, since discordance with absolute values may lead to misinterpretation of CBC data. Current Interpretive Data was last revised on 2017. Lymphocyte pct 18.8 % [facility] Comment: Interpretive Data Percent cell count reference ranges are not reported, since discordance with absolute values may lead to misinterpretation of CBC data. Current Interpretive Data was last revised on 2017. Monocyte pct 11.7 % [facility] Comment: Interpretive Data Percent cell count reference ranges are not reported, since discordance with absolute values may lead to misinterpretation of CBC data. Current Interpretive Data was last revised on 2017. Eosinophil pct 12.0 % [facility] Comment: Interpretive Data Percent cell count reference ranges are not reported, since discordance with absolute values may lead to misinterpretation of CBC data. Current Interpretive Data was last revised on 2017. Basophil pct 0.5 % [facility] Comment: Interpretive Data Percent cell count reference ranges are not reported, since discordance with absolute values may lead to misinterpretation of CBC data. Current Interpretive Data was last revised on 2017. Blood 09/30/2024 9:22 PM ARBORICULTURIST 09/30/2024 11:33 PM ARBORICULTURIST us Molina Dsouza MD LAB BLOOD ORDERABL ES Final Result [facility] [place] [address] * (ABNORMAL) CBC with auto differential (09/30/2024 9:22 PM ARBORICULTURIST) WBC 5.9 3.8 - 9.9 K/cumm Hgb 11.7(L) 11.9 - 15.5 g/dL [facility] Hct 35.1(L) 35.6 - 45.5 % [facility] Plt 50(L) 150 - 400 K/cumm [facility] MPV 12.5(H) 9.1 - 12.3 fL [facility] RBC 3.67(L) 3.90 - 5.20 M/cumm [facility] MCV 95.6 81.3 - 96.4 fL [facility] MCH 31.9 27.1 - 33.3 pg [facility] MCHC 33.3 32.3 - 35.7 g/dL [facility] RDW CV 14.7 11.1 - 14.9 % [facility] RDW SD 50.5(H) 35.7 - 48.1 fL [facility] NRBC abs 0.00 0.00 - 0.01 K/cumm [facility] Blood 09/30/2024 9:22 PM ARBORICULTURIST 09/30/2024 11:33 PM ARBORICULTURIST Molina Dsouza MD LAB BLOOD ORDERABL ES Final Result Performing Organization Address [facility] Co de Phone Number [facility] [place] [address] * Vitamin D 25 hydroxy (09/30/2024 9:22 PM ARBORICULTURIST) [facility] Vitamin D 25-OH 33 30 - 80 ng/mL Blood 09/30/2024 9:22 PM ARBORICULTURIST 09/30/2024 11:34 PM ARBORICULTURIST Molina Dsouza MD LAB BLOOD ORDERABL ES Final Result Performing Organization Address [facility] [place] [address] * (ABNORMAL) Protime-INR (09/30/2024 9:22 PM ARBORICULTURIST) [facility] PT 16.9(H) 9.7 - 13.0 sec INR 1.55(H) 0.90 - 1.20 [facility] Comment: Interpretive data Oral anticoagulant therapeutic ranges: Venous thromboembolism prophylaxis or treatment: 2.0-3.0 CARDIOLOGY Standard range: 2.0-3.0 High-intensity range: 2.5-3.5 Refer to indication-specific guidelines for appropriate target ranges for prosthetic heart valve replacement. Current interpretive data was last revised on 2019. Blood 09/30/2024 9:22 PM ARBORICULTURIST 09/30/2024 11:33 PM ARBORICULTURIST Stuart Flores MD LAB BLOOD ORDERABLES Final Resul t Performing Organization Address [facility] de Phone Number [facility] [place] [address] * (ABNORMAL) Phosphorus (09/30/2024 9:22 PM ARBORICULTURIST) [facility] Phosphorus, pl 2.2(L) 2.3 - 4.5 mg/dL Blood 09/30/2024 9:22 PM ARBORICULTURIST 09/30/2024 11:32 PM ARBORICULTURIST Stuart Flores MD LAB BLOOD ORDERABLES Final Resul t Performing Organization Address [facility] de Phone Number [facility] [place] [address] * PTH (09/30/2024 9:22 PM ARBORICULTURIST) [facility] PTH 27 15 - 65 pg/mL Blood 09/30/2024 9:22 PM ARBORICULTURIST 09/30/2024 11:34 PM ARBORICULTURIST Molina Dsouza MD LAB BLOOD ORDERABL ES Final Result Performing Organization Address [facility] de Phone Number [facility] [place] [address] * Magnesium (09/30/2024 9:22 PM ARBORICULTURIST) [facility] Magnesium 2.5 1.4 - 2.5 mg/dL Blood 09/30/2024 9:22 PM ARBORICULTURIST 09/30/2024 11:32 PM ARBORICULTURIST Stuart Flores MD LAB BLOOD ORDERABLES Final Resul t Performing Organization Address [facility] [place] [address] * (ABNORMAL) Comprehensive metabolic panel (09/30/2024 9:22 PM ARBORICULTURIST) [facility] Sodium 147(H) 135 - 145 mmol/L Potassium, pl 3.8 3.3 - 4.9 mmol/L [facility] Chloride 102 97 - 110 mmol/L [facility] CO2 31 22 - 32 mmol/L [facility] Anion gap 14 2 - 15 mmol/L [facility] BUN 46(H) 6 - 25 mg/dL [facility] Creatinine 2.31(H) 0.60 - 1.10 mg/dL [facility] Glucose 262(H) 70 - 199 mg/dL [facility] Comment: Interpretive Data Fasting glucose >/= [...] 2022. Calcium 10.8(H) 8.5 - 10.3 mg/dL [facility] Bilirubin, total 3.7(H) 0.1 - 1.2 mg/dL [facility] Protein, pl 7.6 6.5 - 8.5 g/dL [facility] Albumin 5.2(H) 3.5 - 5.0 g/dL [facility] Alk phos 74 40 - 130 Units/L [facility] ALT 24 7 - 45 Units/L [facility] AST 45 10 - 45 Units/L [facility] Blood 09/30/2024 9:22 PM ARBORICULTURIST 09/30/2024 11:32 PM ARBORICULTURIST Najma Pires MD LAB BLOOD ORDERABLES Final Result [facility] Department [place] [address] * (ABNORMAL) POCT glucose (09/30/2024 7:58 PM ARBORICULTURIST) [facility] Glucose, POC 277(H) 70 - 199 mg/dL Comment:Glu2: RN/ Notified Glucose comment 1 Glu2: RN/ Notified [facility] Blood 09/30/2024 7:58 PM ARBORICULTURIST 09/30/2024 7:58 PM ARBORICULTURIST us Molina Dsouza MD LAB POCT ORDERABLE S - DEVICE Final Result Performing Organization Address [facility] de Phone Number [facility] [place] [address] * POCT glucose (09/30/2024 4:20 PM ARBORICULTURIST) Glucose, POC 183 70 - 199 mg/dL Blood 09/30/2024 4:20 PM ARBORICULTURIST 09/30/2024 4:20 PM ARBORICULTURIST us Molina Dsouza MD LAB POCT ORDERABLE S - DEVICE Final Result Performing Organization Address [facility] Phone Number [facility] [place] [address] * POCT glucose (09/30/2024 11:43 AM ARBORICULTURIST) Glucose, POC 193 70 - 199 mg/dL Blood 09/30/2024 11:4 3 AM ARBORICULTURIST 09/30/2024 11:43 AM ARBORICULTURIST us Molina Dsouza MD LAB POCT ORDERABLE S - DEVICE Final Result Performing Organization Address [facility] de Phone Number [facility] Department [place] [address] * POCT glucose (09/30/2024 7:54 AM ARBORICULTURIST) Glucose, POC 171 70 - 199 mg/dL Blood 09/30/2024 7:54 AM ARBORICULTURIST 09/30/2024 7:54 AM ARBORICULTURIST us Molina Dsouza MD LAB POCT ORDERABLE S - DEVICE Final Result Performing Organization Address [facility]/ZIP Co de Phone Number [facility] [place] [address] * POCT glucose (09/30/2024 7:36 AM ARBORICULTURIST) [facility] Signature Glucose, POC 170 70 - 199 mg/dL Blood 09/30/2024 7:36 AM ARBORICULTURIST 09/30/2024 7:36 AM ARBORICULTURIST Molina Dsouza MD LAB POCT ORDERABLE S - DEVICE Final Result Performing Organization Address [facility] [place] [address] * POCT glucose (09/30/2024 12:28 AM ARBORICULTURIST) [facility] Glucose, POC 181 70 - 199 mg/dL Blood 09/30/2024 12:2 8 AM ARBORICULTURIST 09/30/2024 12:28 AM ARBORICULTURIST Molina Dsouza MD LAB POCT ORDERABLE S - DEVICE Final Result Performing Organization Address [facility] de Phone Number [facility] [place] [address] * (ABNORMAL) eGFR (09/29/2024 8:49 PM ARBORICULTURIST) [facility] eGFR 22(L) >=60 mL/min/1. 73 m2 Comment: [...] last reviewed 2021. Blood 09/29/2024 8:49 PM ARBORICULTURIST 09/29/2024 10:02 PM ARBORICULTURIST us Najma Pires MD LAB BLOOD ORDERABLES Final Result Performing Organization Address [facility] de Phone Number [facility] [place] [address] * (ABNORMAL) Protime-INR (09/29/2024 8:49 PM ARBORICULTURIST) PT 16.0(H) 9.7 - 13.0 sec INR 1.47(H) 0.90 - 1.20 [facility] Comment: Interpretive data Oral anticoagulant therapeutic ranges: Venous thromboembolism prophylaxis or treatment: 2.0-3.0 CARDIOLOGY Standard range: 2.0-3.0 High-intensity range: 2.5-3.5 Refer to indication-specific guidelines for appropriate target ranges for prosthetic heart valve replacement. Current interpretive data was last revised on 2019. Blood 09/29/2024 8:49 PM ARBORICULTURIST 09/29/2024 10:00 PM ARBORICULTURIST us Stuart Flores MD LAB BLOOD ORDERABLES Final Resul t Performing Organization Address [facility] de Phone Number [facility] [place] [address] * (ABNORMAL) Phosphorus (09/29/2024 8:49 PM ARBORICULTURIST) Phosphorus, pl 1.6(L) 2.3 - 4.5 mg/dL Blood 09/29/2024 8:49 PM ARBORICULTURIST 09/29/2024 10:02 PM ARBORICULTURIST us Stuart Flores MD LAB BLOOD ORDERABLES Final Resul t Performing Organization Address City/[facility]/ZIP Co de Phone Number [facility] Department [place] [address] * (ABNORMAL) Magnesium (09/29/2024 8:49 PM ARBORICULTURIST) Magnesium 2.8(H) 1.4 - 2.5 mg/dL Blood 09/29/2024 8:49 PM ARBORICULTURIST 09/29/2024 10:02 PM ARBORICULTURIST us Stuart Flores MD LAB BLOOD ORDERABLES Final Resul t Performing Organization Address [facility] de Phone Number [facility] [place] [address] * (ABNORMAL) Comprehensive metabolic panel (09/29/2024 8:49 PM ARBORICULTURIST) Pathologist [facility] Sodium 141 135 - 145 mmol/L Potassium, pl 3.5 3.3 - 4.9 mmol/L [facility] Chloride 100 97 - 110 mmol/L [facility] CO2 29 22 - 32 mmol/L [facility] Anion gap 12 2 - 15 mmol/L [facility] BUN 56(H) 6 - 25 mg/dL [facility] Creatinine 2.41(H) 0.60 - 1.10 mg/dL [facility] Glucose 241(H) 70 - 199 mg/dL [facility] Comment: Interpretive Data Fasting glucose >/= [...] 2022. Calcium 10.9(H) 8.5 - 10.3 mg/dL [facility] Bilirubin, total 3.4(H) 0.1 - 1.2 mg/dL [facility] Protein, pl 7.5 6.5 - 8.5 g/dL [facility] Albumin 5.0 3.5 - 5.0 g/dL [facility] Alk phos 79 40 - 130 Units/L [facility] ALT 19 7 - 45 Units/L [facility] AST 38 10 - 45 Units/L [facility] Blood 09/29/2024 8:49 PM ARBORICULTURIST 09/29/2024 10:02 PM ARBORICULTURIST us Najma Pires MD LAB BLOOD ORDERABLES Final Result Performing Organization Address [facility] de Phone Number [facility] Department [place] [address] * (ABNORMAL) POCT glucose (09/29/2024 8:08 PM ARBORICULTURIST) Glucose, POC 225(H) 70 - 199 mg/dL Blood 09/29/2024 8:08 PM ARBORICULTURIST 09/29/2024 8:08 PM ARBORICULTURIST us Molina Dsouza MD LAB POCT ORDERABLE S - DEVICE Final Result Performing Organization Address [facility] de Phone Number [facility] Department [place] [address] * (ABNORMAL) POCT glucose (09/29/2024 4:50 PM ARBORICULTURIST) Glucose, POC 236(H) 70 - 199 mg/dL Blood 09/29/2024 4:50 PM ARBORICULTURIST 09/29/2024 4:50 PM ARBORICULTURIST Molina Dsouza MD LAB POCT ORDERABLE S - DEVICE Final Result Performing Organization Address [facility] Co de Phone Number [facility] Department [place] [address] * (ABNORMAL) POCT glucose (09/29/2024 11:35 AM ARBORICULTURIST) Glucose, POC 230(H) 70 - 199 mg/dL Blood 09/29/2024 11:3 5 AM ARBORICULTURIST 09/29/2024 11:35 AM ARBORICULTURIST us Molina Dsouza MD LAB POCT ORDERABLE S - DEVICE Final Result [facility] [place] [address] * SEPTIC TECHNICIAN Evaluate and Treat (FEES) (09/29/2024 10:55 AM ARBORICULTURIST) Narrative [facility] - 09/29/2024 10:55 AM ARBORICULTURIST Marina Ty, SEPTIC TECHNICIAN 09/29/2024 3:25 PM Speech-Language Pathology: Flexible Endoscopic Evaluation of Swallowing (FEES) [facility] 63 y.o. F with hx of VELASCO cirrhosis and CKD currently listed for a simultaneous liver-kidney transplant (SLK), HTN, T2DM, atrial flutter, and ERNESTINE who presented to [facility] 09/24 as an OSH transfer for AMS. Pt was reportedly at baseline until 09/24 when EMS was called to her home as patient was found confused by her . Pt was initially brought to OSH ED, transferred to [facility] ED as she is an active liver transplant patient. EGD October 2022 w/o EV. #AMS, likely hepatic encephalopathy, improving Respiratory/Intubation Status: RA Imaging: CT Abdomen/Pelvis 09/26- New right lower lobe 8 mm pulmonary nodule. CXR 09/24- Lungs are clear. No pleural effusion or pneumothorax. Neuro Outside CT 09/24- No acute intracranial abnormality. Precautions: fall, ERNESTINE PLOF: CSE at [facility] on 08/02/2022 recommending regular solids with thin liquids, meds with puree, full supervision with meals, limit distractions Current Diet Order:npo, ice chips for pleasure pending fees Baseline Diet: reports regular diet General Information Nael Cardoza 02/18/25 SEPTIC TECHNICIAN Received On: 09/29/24 General Observations: Seen sitting upright in bed, pleasant and cooperative, functional voicing with slurred speech. Pain Score: 0 - No pain If pain >4, was RN notified? None Observed Patient Stated Goal/Comments: to start eating again Clinical Impression & Professional Recommendations Diet Solids Recommendation: Regular Diet Liquids Recommendations: [place] thick Recommended Form of Medications: As tolerated [...] deficits Secretions: Minimal Consistencies Administered: Thin liquids, [place] thick liquids, Purees, Solids (with green food coloring) Thin Liquids: Laryngeal Penetration: Present Aspiration Present: Yes Timing: Before Amount: Trace Response to aspiration: Throat clearing, None Cough: Non-productive Unsuccessful Modifications: Other (comment) (bolus hold) Penetration Aspiration Scale-Thin: 8-Material enters the airway, passes below the vocal folds and no effort is made to eject [place] Scale-Vallecular Residue-Thin Liquids: Trace Zari Scale-Pyriform Sinus Residue-Thin Liquids: Trace [place] Thickened Liquids: Laryngeal Penetration: None Aspiration Present: No Penetration Aspiration Scale-[place]: 1-Material does not enter airway [place] Scale-Vallecular Residue-[place] Thickened Liquids: Trace [place] Scale-Pyriform Sinus Residue-[place] Thickened Liquids: Trace Honey Thickened Liquids: Purees: Laryngeal Penetration: None Aspiration Present: No Penetration Aspiration Scale-Puree: 1-Material does not enter airway [place] Scale-Vallecular Residue-Puree: Trace [place] Scale-Pyriform Sinus Residue-Puree: Trace Solids: Laryngeal Penetration: [...] treatment goals and details, if indicated. Plan SEPTIC TECHNICIAN Frequency of Services during current admission: 1-2x/wk SEPTIC TECHNICIAN Recommendation (Add'l Services): Defer at this time Next Visit Plan:treatment/therapy and repeat instrumental evaluation 3-5 days Additional Referrals: none at this time Discharge Summary Statement If this is the last swallow therapy visit, this serves as the discharge summary. us Molina Dsouza MD SEPTIC TECHNICIAN ORDERABLES Fi nal Result [facility] * SEPTIC TECHNICIAN Evaluate and Treat (VFSS) (09/29/2024 10:55 AM ARBORICULTURIST) Narrative Marina Ty, SEPTIC TECHNICIAN - 09/29/2024 10:55 AM ARBORICULTURIST Marina Ty SEPTIC TECHNICIAN 09/29/2024 3:25 PM Speech-Language Pathology: Flexible Endoscopic Evaluation of Swallowing (FEES) HPI/PMH 63 y.o. F with hx of VELASCO cirrhosis and CKD currently listed for a simultaneous liver-kidney transplant (SLK), HTN, T2DM, atrial flutter, and ERNESTINE who presented to [facility] 09/24 as an OSH transfer for AMS. Pt was reportedly at baseline until 09/24 when EMS was called to her home as patient was found confused by her . Pt was initially brought to OSH ED, transferred to [facility] ED as she is an active liver transplant patient. EGD October 2022 w/o EV. #AMS, likely hepatic encephalopathy, improving Respiratory/Intubation Status: RA Imaging: CT Abdomen/Pelvis 09/26- New right lower lobe 8 mm pulmonary nodule. CXR 09/24- Lungs are clear. No pleural effusion or pneumothorax. Neuro Outside CT 09/24- No acute intracranial abnormality. Precautions: fall, ERNESTINE PLOF: CSE at [facility] on 08/02/2022 recommending regular solids with thin liquids, meds with puree, full supervision with meals, limit distractions Current Diet Order:npo, ice chips for pleasure pending fees Baseline Diet: reports regular diet General Information Nael Cardoza 09/29/24 SEPTIC TECHNICIAN Received On: 09/29/24 General Observations: Seen sitting upright in bed, pleasant and cooperative, functional voicing with slurred speech. Pain Score: 0 - No pain If pain >4, was RN notified? None Observed Patient Stated Goal/Comments: to start eating again Clinical Impression & Professional Recommendations Diet Solids Recommendation: Regular Diet Liquids Recommendations: [place] thick Recommended Form of Medications: As tolerated [...] deficits Secretions: Minimal Consistencies Administered: Thin liquids, [place] thick liquids, Purees, Solids (with green food coloring) Thin Liquids: Laryngeal Penetration: Present Aspiration Present: Yes Timing: Before Amount: Trace Response to aspiration: Throat clearing, None Cough: Non-productive Unsuccessful Modifications: Other (comment) (bolus hold) Penetration Aspiration Scale-Thin: 8-Material enters the airway, passes below the vocal folds and no effort is made to eject Zari Scale-Vallecular Residue-Thin Liquids: Trace [place] Scale-Pyriform Sinus Residue-Thin Liquids: Trace [place] Thickened Liquids: Laryngeal Penetration: None Aspiration Present: No Penetration Aspiration Scale-[place]: 1-Material does not enter airway [place] Scale-Vallecular Residue-[place] Thickened Liquids: Trace [place] Scale-Pyriform Sinus Residue-[place] Thickened Liquids: Trace Honey Thickened Liquids: Purees: Laryngeal Penetration: None Aspiration Present: No Penetration Aspiration Scale-Puree: 1-Material does not enter airway Zari Scale-Vallecular Residue-Puree: Trace [place] Scale-Pyriform Sinus Residue-Puree: Trace Solids: Laryngeal Penetration: None Aspiration Present: No Penetration Aspiration Scale-Solids: 1-Material does not enter airway [place] Scale-Vallecular Residue-Solids: Moderate Zari Scale-Pyriform Sinus Residue-Solids: Moderate Dysphagia Outcome and Severity Scale: Dysphagia Outcomes and Severity Scale: 5 Mild dysphagia Levels 1 & 2 on the ALEJANDRINA indicate need for nonoral nutrition. Treatment Treatment was not provided this date. Please reference care plan for treatment goals and details, if indicated. Plan SEPTIC TECHNICIAN Frequency of Services during current admission: 1-2x/wk SEPTIC TECHNICIAN Recommendation (Add'l Services): Defer at this time Next Visit Plan:treatment/therapy and repeat instrumental evaluation 3-5 days Additional Referrals: none at this time Discharge Summary Statement If this is the last swallow therapy visit, this serves as the discharge summary. us Molina Dsouza MD SEPTIC TECHNICIAN ORDERABLES Fi nal Result * POCT glucose (09/29/2024 7:34 AM ARBORICULTURIST) Glucose, POC 185 70 - 199 mg/dL Blood 09/29/2024 7:34 AM ARBORICULTURIST 09/29/2024 7:34 AM ARBORICULTURIST us Molina Dsouza MD LAB POCT ORDERABLE S - DEVICE Final Result Performing Organization Address [facility] de Phone Number [facility] [place] [employer] [address] * (ABNORMAL) POCT glucose (09/29/2024 4:49 AM ARBORICULTURIST) Glucose, POC 203(H) 70 - 199 mg/dL Comment:Glu2: RN/MD Notified Glucose comment 1 Glu2: RN/MD Notified [facility] Blood 09/29/2024 4:49 AM ARBORICULTURIST 09/29/2024 4:49 AM ARBORICULTURIST us Molina Dsouza MD LAB POCT ORDERABLE S - DEVICE Final Result Performing Organization Address [facility] de Phone Number [facility] [place] [employer] [address] * POCT glucose (09/29/2024 12:25 AM ARBORICULTURIST) Glucose, POC 179 70 - 199 mg/dL Blood 09/29/2024 12:2 5 AM ARBORICULTURIST 09/29/2024 12:25 AM ARBORICULTURIST us Molina Dsouza MD LAB POCT ORDERABLE S - DEVICE Final Result Performing Organization Address [facility] Co de Phone Number [facility] [place] [address] * (ABNORMAL) eGFR (09/28/2024 9:17 PM ARBORICULTURIST) Pathologist [facility] eGFR 21(L) >=60 mL/min/1. 73 m2 [...] last reviewed 2021. Blood 09/28/2024 9:17 PM ARBORICULTURIST 09/28/2024 10:40 PM ARBORICULTURIST us Najma Pires MD LAB BLOOD ORDERABLES Final Result [facility] [place] [address] * (ABNORMAL) Differential, auto (09/28/2024 9:17 PM ARBORICULTURIST) Pathologist [facility] Neutrophil abs 3.4 1.5 - 6.5 K/cumm Imm gran abs 0.0 0.0 - 0.1 K/cumm [facility] Lymphocyte abs 1.2 0.8 - 3.3 K/cumm [facility] Monocyte abs 0.9(H) 0.2 - 0.8 K/cumm [facility] Eosinophil abs 0.9(H) 0.0 - 0.5 K/cumm [facility] Basophil abs 0.0 0.0 - 0.1 K/cumm [facility] Neutrophil pct 52.8 % [facility] Comment: Interpretive Data Percent cell count reference ranges are not reported, since discordance with absolute values may lead to misinterpretation of CBC data. Current Interpretive Data was last revised on 2017. Imm gran pct 0.5 % [facility] Comment: Interpretive Data Percent cell count reference ranges are not reported, since discordance with absolute values may lead to misinterpretation of CBC data. Current Interpretive Data was last revised on 2017. Lymphocyte pct 18.2 % [facility] Comment: Interpretive Data Percent cell count reference ranges are not reported, since discordance with absolute values may lead to misinterpretation of CBC data. Current Interpretive Data was last revised on 2017. Monocyte pct 14.5 % [facility] Comment: Interpretive Data Percent cell count reference ranges are not reported, since discordance with absolute values may lead to misinterpretation of CBC data. Current Interpretive Data was last revised on 2017. Eosinophil pct 13.4 % [facility] Comment: Interpretive Data Percent cell count reference ranges are not reported, since discordance with absolute values may lead to misinterpretation of CBC data. Current Interpretive Data was last revised on 2017. Basophil pct 0.6 % [facility] Comment: Interpretive Data Percent cell count reference ranges are not reported, since discordance with absolute values may lead to misinterpretation of CBC data. Current Interpretive Data was last revised on 2017. Blood 09/28/2024 9:17 PM ARBORICULTURIST 09/28/2024 10:40 PM ARBORICULTURIST us Najma Pires MD LAB BLOOD ORDERABLES Final Result [facility] [place] [address] * (ABNORMAL) CBC with auto differential (09/28/2024 9:17 PM ARBORICULTURIST) WBC 6.4 3.8 - 9.9 K/cumm Hgb 11.6(L) 11.9 - 15.5 g/dL [facility] Hct 35.4(L) 35.6 - 45.5 % [facility] Plt 62(L) 150 - 400 K/cumm [facility] MPV 11.5 9.1 - 12.3 fL [facility] RBC 3.65(L) 3.90 - 5.20 M/cumm [facility] MCV 97.0(H) 81.3 - 96.4 fL [facility] MCH 31.8 27.1 - 33.3 pg [facility] MCHC 32.8 32.3 - 35.7 g/dL [facility] RDW CV 14.5 11.1 - 14.9 % [facility] RDW SD 51.1(H) 35.7 - 48.1 fL [facility] NRBC abs 0.00 0.00 - 0.01 K/cumm [facility] Blood 09/28/2024 9:17 PM ARBORICULTURIST 09/28/2024 10:40 PM ARBORICULTURIST us Najma Pires MD LAB BLOOD ORDERABLES Final Result Performing Organization Address [facility] Co de Phone Number [facility] [place] [address] * (ABNORMAL) Protime-INR (09/28/2024 9:17 PM ARBORICULTURIST) PT 15.4(H) 9.7 - 13.0 sec INR 1.42(H) 0.90 - 1.20 [facility] Comment: Interpretive data Oral anticoagulant therapeutic ranges: Venous thromboembolism prophylaxis or treatment: 2.0-3.0 CARDIOLOGY Standard range: 2.0-3.0 High-intensity range: 2.5-3.5 Refer to indication-specific guidelines for appropriate target ranges for prosthetic heart valve replacement. Current interpretive data was last revised on 2019. Blood 09/28/2024 9:17 PM ARBORICULTURIST 09/28/2024 10:49 PM ARBORICULTURIST us Stuart Flores MD LAB BLOOD ORDERABLES Final Resul t [facility] [place] [address] * Phosphorus (09/28/2024 9:17 PM ARBORICULTURIST) Phosphorus, pl 2.3 2.3 - 4.5 mg/dL Blood 09/28/2024 9:17 PM ARBORICULTURIST 09/28/2024 10:40 PM ARBORICULTURIST Stuart Flores MD LAB BLOOD ORDERABLES Final Resul t Performing Organization Address [facility] [place] [address] * (ABNORMAL) Magnesium (09/28/2024 9:17 PM ARBORICULTURIST) Pathologist [facility] Magnesium 2.8(H) 1.4 - 2.5 mg/dL Blood 09/28/2024 9:17 PM ARBORICULTURIST 09/28/2024 10:40 PM ARBORICULTURIST Stuart Flores MD LAB BLOOD ORDERABLES Final Resul t Performing Organization Address [facility] Co de Phone Number [facility] [place] [address] * (ABNORMAL) Hemoglobin A1c (09/28/2024 9:17 PM ARBORICULTURIST) Hgb A1C 8.5(H) 4.0 - 5.6 % Estimated Average Glucose 197 mg/dL [facility] Blood 09/28/2024 9:17 PM ARBORICULTURIST 09/28/2024 10:44 PM ARBORICULTURIST Swapnil Moore MD LAB BLOOD ORDERABLES Fin al Result Performing Organization Address City/[facility] Co de Phone Number [facility] [place] [address] * (ABNORMAL) Comprehensive metabolic panel (09/28/2024 9:17 PM ARBORICULTURIST) Sodium 144 135 - 145 mmol/L Potassium, pl 3.4 3.3 - 4.9 mmol/L [facility] Chloride 101 97 - 110 mmol/L [facility] CO2 29 22 - 32 mmol/L [facility] Anion gap 14 2 - 15 mmol/L [facility] BUN 58(H) 6 - 25 mg/dL [facility] Creatinine 2.53(H) 0.60 - 1.10 mg/dL [facility] Glucose 207(H) 70 - 199 mg/dL [facility] Comment: Interpretive Data Fasting glucose >/= [...] 2022. Calcium 10.6(H) 8.5 - 10.3 mg/dL [facility] Bilirubin, total 2.9(H) 0.1 - 1.2 mg/dL [facility] Protein, pl 7.5 6.5 - 8.5 g/dL [facility] Albumin 4.8 3.5 - 5.0 g/dL [facility] Alk phos 81 40 - 130 Units/L [facility] ALT 20 7 - 45 Units/L [facility] AST 32 10 - 45 Units/L [facility] Blood 09/28/2024 9:17 PM ARBORICULTURIST 09/28/2024 10:40 PM ARBORICULTURIST us Najma Pires MD LAB BLOOD ORDERABLES Final Result [facility] [place] [address] * (ABNORMAL) POCT glucose (09/28/2024 7:57 PM ARBORICULTURIST) Glucose, POC 203(H) 70 - 199 mg/dL Comment:Glu2: RN/MD Notified Glucose comment 1 Glu2: RN/MD Notified [facility] Blood 09/28/2024 7:57 PM ARBORICULTURIST 09/28/2024 7:57 PM ARBORICULTURIST Molina Dsouza MD LAB POCT ORDERABLE S - DEVICE Final Result Performing Organization Address [facility] Co de Phone Number [facility] [place] [address] * (ABNORMAL) POCT glucose (09/28/2024 4:31 PM ARBORICULTURIST) Glucose, POC 218(H) 70 - 199 mg/dL Blood 09/28/2024 4:31 PM ARBORICULTURIST 09/28/2024 4:31 PM ARBORICULTURIST Stuart Flores MD LAB POCT ORDERABLES - DEVICE Fin al Result Performing Organization Address [facility] Co de Phone Number [facility] [place] [address] * (ABNORMAL) POCT glucose (09/28/2024 11:23 AM ARBORICULTURIST) Glucose, POC 244(H) 70 - 199 mg/dL Blood 09/28/2024 11:2 3 AM ARBORICULTURIST 09/28/2024 11:23 AM ARBORICULTURIST Stuart Flores MD LAB POCT ORDERABLES - DEVICE Fin al Result Performing Organization Address [facility] [place] [address] * (ABNORMAL) POCT glucose (09/28/2024 8:01 AM ARBORICULTURIST) Glucose, POC 271(H) 70 - 199 mg/dL Blood 09/28/2024 8:01 AM ARBORICULTURIST 09/28/2024 8:01 AM ARBORICULTURIST us Stuart Flores MD LAB POCT ORDERABLES - DEVICE Fin al Result Performing Organization Address [facility] de Phone Number [facility] [employer] [address] * (ABNORMAL) POCT glucose (09/28/2024 4:52 AM ARBORICULTURIST) Glucose, POC 227(H) 70 - 199 mg/dL Blood 09/28/2024 4:52 AM ARBORICULTURIST 09/28/2024 4:52 AM ARBORICULTURIST us Stuart Flores MD LAB POCT ORDERABLES - DEVICE Fin al Result Performing Organization Address [facility] Phone Number [facility] [place] [address] * (ABNORMAL) POCT glucose (09/28/2024 12:29 AM ARBORICULTURIST) Glucose, POC 232(H) 70 - 199 mg/dL Blood 09/28/2024 12:2 9 AM ARBORICULTURIST 09/28/2024 12:29 AM ARBORICULTURIST us Stuart Flores MD LAB POCT ORDERABLES - DEVICE Fin al Result Performing Organization Address [facility] [place] [address] * (ABNORMAL) eGFR (09/28/2024 12:06 AM ARBORICULTURIST) eGFR 15(L) >=60 mL/min/1. 73 m2 Comment: [...] reviewed 2021. Blood 09/28/2024 12:0 6 AM ARBORICULTURIST 09/28/2024 12:22 AM ARBORICULTURIST us Najma Pires MD LAB BLOOD ORDERABLES Final Result [facility] [place] [address] * (ABNORMAL) Differential, auto (09/28/2024 12:06 AM ARBORICULTURIST) Pathologist [facility] Neutrophil abs 3.3 1.5 - 6.5 K/cumm Imm gran abs 0.0 0.0 - 0.1 K/cumm [facility] Lymphocyte abs 1.2 0.8 - 3.3 K/cumm [facility] Monocyte abs 1.0(H) 0.2 - 0.8 K/cumm [facility] Eosinophil abs 0.7(H) 0.0 - 0.5 K/cumm [facility] Basophil abs 0.1 0.0 - 0.1 K/cumm [facility] Neutrophil pct 52.8 % [facility] Comment: Interpretive Data Percent cell count reference ranges are not reported, since discordance with absolute values may lead to misinterpretation of CBC data. Current Interpretive Data was last revised on 2017. Imm gran pct 0.5 % [facility] Comment: Interpretive Data Percent cell count reference ranges are not reported, since discordance with absolute values may lead to misinterpretation of CBC data. Current Interpretive Data was last revised on 2017. Lymphocyte pct 19.0 % [facility] Comment: Interpretive Data Percent cell count reference ranges are not reported, since discordance with absolute values may lead to misinterpretation of CBC data. Current Interpretive Data was last revised on 2017. Monocyte pct 15.7 % [facility] Comment: Interpretive Data Percent cell count reference ranges are not reported, since discordance with absolute values may lead to misinterpretation of CBC data. Current Interpretive Data was last revised on 2017. Eosinophil pct 11.2 % [facility] Comment: Interpretive Data Percent cell count reference ranges are not reported, since discordance with absolute values may lead to misinterpretation of CBC data. Current Interpretive Data was last revised on 2017. Basophil pct 0.8 % [facility] Comment: Interpretive Data Percent cell count reference ranges are not reported, since discordance with absolute values may lead to misinterpretation of CBC data. Current Interpretive Data was last revised on 2017. Blood 09/28/2024 12:0 6 AM ARBORICULTURIST 09/28/2024 12:24 AM ARBORICULTURIST us Najma Pires MD LAB BLOOD ORDERABLES Final Result [facility] [place] [address] * (ABNORMAL) CBC with auto differential (09/28/2024 12:06 AM ARBORICULTURIST) WBC 6.2 3.8 - 9.9 K/cumm Hgb 11.4(L) 11.9 - 15.5 g/dL [facility] Hct 33.7(L) 35.6 - 45.5 % [facility] Plt 64(L) 150 - 400 K/cumm [facility] MPV 11.8 9.1 - 12.3 fL [facility] RBC 3.54(L) 3.90 - 5.20 M/cumm [facility] MCV 95.2 81.3 - 96.4 fL [facility] MCH 32.2 27.1 - 33.3 pg [facility] MCHC 33.8 32.3 - 35.7 g/dL [facility] RDW CV 14.6 11.1 - 14.9 % [facility] RDW SD 50.9(H) 35.7 - 48.1 fL [facility] NRBC abs 0.00 0.00 - 0.01 K/cumm [facility] Blood 09/28/2024 12:0 6 AM ARBORICULTURIST 09/28/2024 12:24 AM ARBORICULTURIST us Najma Pires MD LAB BLOOD ORDERABLES Final Result Performing Organization Address City/[facility] Co de Phone Number [facility] [place] [place] [address] * (ABNORMAL) Protime-INR (09/28/2024 12:06 AM ARBORICULTURIST) PT 16.2(H) 9.7 - 13.0 sec INR 1.49(H) 0.90 - 1.20 [facility] Comment: Interpretive data Oral anticoagulant therapeutic ranges: Venous thromboembolism prophylaxis or treatment: 2.0-3.0 CARDIOLOGY Standard range: 2.0-3.0 High-intensity range: 2.5-3.5 Refer to indication-specific guidelines for appropriate target ranges for prosthetic heart valve replacement. Current interpretive data was last revised on 2019. Blood 09/28/2024 12:0 6 AM ARBORICULTURIST 09/28/2024 12:35 AM ARBORICULTURIST us Stuart Flores MD LAB BLOOD ORDERABLES Final Resul t Performing Organization Address City/[facility]/ZIP Co de Phone Number [facility] [place] [place] [address] * Phosphorus (09/28/2024 12:06 AM ARBORICULTURIST) Phosphorus, pl 2.5 2.3 - 4.5 mg/dL Blood 09/28/2024 12:0 6 AM ARBORICULTURIST 09/28/2024 12:22 AM ARBORICULTURIST us Stuart Flores MD LAB BLOOD ORDERABLES Final Resul t Performing Organization Address City/[facility] Co de Phone Number [facility] [place] [address] * (ABNORMAL) Magnesium (09/28/2024 12:06 AM ARBORICULTURIST) Magnesium 2.9(H) 1.4 - 2.5 mg/dL Blood 09/28/2024 12:0 6 AM ARBORICULTURIST 09/28/2024 12:22 AM ARBORICULTURIST us Stuart Flores MD LAB BLOOD ORDERABLES Final Resul t Performing Organization Address [facility] de Phone Number [facility] [place] [address] * (ABNORMAL) Comprehensive metabolic panel (09/28/2024 12:06 AM ARBORICULTURIST) Sodium 143 135 - 145 mmol/L Potassium, pl 3.5 3.3 - 4.9 mmol/L [facility] Chloride 101 97 - 110 mmol/L [facility] CO2 27 22 - 32 mmol/L [facility] Anion gap 15 2 - 15 mmol/L [facility] BUN 74(H) 6 - 25 mg/dL [facility] Creatinine 3.29(H) 0.60 - 1.10 mg/dL [facility] Glucose 244(H) 70 - 199 mg/dL [facility] Comment: Interpretive Data Fasting glucose >/= [...] 2022. Calcium 10.5(H) 8.5 - 10.3 mg/dL [facility] Bilirubin, total 2.6(H) 0.1 - 1.2 mg/dL [facility] Protein, pl 6.9 6.5 - 8.5 g/dL [facility] Albumin 4.4 3.5 - 5.0 g/dL [facility] Alk phos 80 40 - 130 Units/L [facility] ALT 18 7 - 45 Units/L [facility] AST 29 10 - 45 Units/L [facility] Blood 09/28/2024 12:0 6 AM ARBORICULTURIST 09/28/2024 12:22 AM ARBORICULTURIST Najma Pires MD LAB BLOOD ORDERABLES Final Result Performing Organization Address [facility] Co de Phone Number [facility] [place] [employer] [address] * (ABNORMAL) POCT glucose (09/27/2024 11:55 PM ARBORICULTURIST) Glucose, POC 224(H) 70 - 199 mg/dL Blood 09/27/2024 11:5 5 PM ARBORICULTURIST 09/27/2024 11:55 PM ARBORICULTURIST Stuart Flores MD LAB POCT ORDERABLES - DEVICE Fin al Result Performing Organization Address [facility] Co de Phone Number [facility] [place] [employer] [address] * POCT glucose (09/27/2024 8:03 PM ARBORICULTURIST) Glucose, POC 197 70 - 199 mg/dL Blood 09/27/2024 8:03 PM ARBORICULTURIST 09/27/2024 8:03 PM ARBORICULTURIST Stuart Flores MD LAB POCT ORDERABLES - DEVICE Fin al Result Performing Organization Address [facility] Co de Phone Number [facility] Department [place] [address] * (ABNORMAL) POCT glucose (09/27/2024 4:26 PM ARBORICULTURIST) Glucose, POC 203(H) 70 - 199 mg/dL Blood 09/27/2024 4:26 PM ARBORICULTURIST 09/27/2024 4:26 PM ARBORICULTURIST us Stuart Flores MD LAB POCT ORDERABLES - DEVICE Fin al Result Performing Organization Address City/[facility] [place] [address] * (ABNORMAL) POCT glucose (09/27/2024 11:49 AM ARBORICULTURIST) Glucose, POC 241(H) 70 - 199 mg/dL Blood 09/27/2024 11:4 9 AM ARBORICULTURIST 09/27/2024 11:49 AM ARBORICULTURIST us Stuart Flores MD LAB POCT ORDERABLES - DEVICE Fin al Result Performing Organization Address [facility] [place] [address] * POCT glucose (09/27/2024 8:05 AM ARBORICULTURIST) Glucose, POC 199 70 - 199 mg/dL Blood 09/27/2024 8:05 AM ARBORICULTURIST 09/27/2024 8:05 AM ARBORICULTURIST us Stuart Flores MD LAB POCT ORDERABLES - DEVICE Fin al Result Performing Organization Address [facility] [place] [address] * (ABNORMAL) POCT glucose (09/27/2024 4:24 AM ARBORICULTURIST) Glucose, POC 215(H) 70 - 199 mg/dL Blood 09/27/2024 4:24 AM ARBORICULTURIST 09/27/2024 4:24 AM ARBORICULTURIST us Stuart Flores MD LAB POCT ORDERABLES - DEVICE Fin al Result Performing Organization Address City/[facility] Co de Phone Number [facility] [place] [address] * POCT glucose (09/26/2024 11:20 PM ARBORICULTURIST) Glucose, POC 168 70 - 199 mg/dL Blood 09/26/2024 11:2 0 PM ARBORICULTURIST 09/26/2024 11:20 PM ARBORICULTURIST Stuart Flores MD LAB POCT ORDERABLES - DEVICE Fin al Result Performing Organization Address [facility] de Phone Number [facility] Department [place] [address] * (ABNORMAL) eGFR (09/26/2024 9:23 PM ARBORICULTURIST) eGFR 10(L) >=60 mL/min/1. 73 m2 Comment: [...] last reviewed 2021. Blood 09/26/2024 9:23 PM ARBORICULTURIST 09/26/2024 10:24 PM ARBORICULTURIST us Najma Pires MD LAB BLOOD ORDERABLES Final Result [facility] [place] [address] * (ABNORMAL) Differential, auto (09/26/2024 9:23 PM ARBORICULTURIST) Neutrophil abs 3.7 1.5 - 6.5 K/cumm Imm gran abs 0.0 0.0 - 0.1 K/cumm [facility] Lymphocyte abs 1.6 0.8 - 3.3 K/cumm [facility] Monocyte abs 1.0(H) 0.2 - 0.8 K/cumm [facility] Eosinophil abs 0.7(H) 0.0 - 0.5 K/cumm [facility] Basophil abs 0.0 0.0 - 0.1 K/cumm [facility] Neutrophil pct 53.1 % [facility] Comment: Interpretive Data Percent cell count reference ranges are not reported, since discordance with absolute values may lead to misinterpretation of CBC data. Current Interpretive Data was last revised on 2017. Imm gran pct 0.4 % [facility] Comment: Interpretive Data Percent cell count reference ranges are not reported, since discordance with absolute values may lead to misinterpretation of CBC data. Current Interpretive Data was last revised on 2017. Lymphocyte pct 23.0 % [facility] Comment: Interpretive Data Percent cell count reference ranges are not reported, since discordance with absolute values may lead to misinterpretation of CBC data. Current Interpretive Data was last revised on 2017. Monocyte pct 13.5 % [facility] Comment: Interpretive Data Percent cell count reference ranges are not reported, since discordance with absolute values may lead to misinterpretation of CBC data. Current Interpretive Data was last revised on 2017. Eosinophil pct 9.4 % [facility] Comment: Interpretive Data Percent cell count reference ranges are not reported, since discordance with absolute values may lead to misinterpretation of CBC data. Current Interpretive Data was last revised on 2017. Basophil pct 0.6 % [facility] Comment: Interpretive Data Percent cell count reference ranges are not reported, since discordance with absolute values may lead to misinterpretation of CBC data. Current Interpretive Data was last revised on 2017. Blood 09/26/2024 9:23 PM ARBORICULTURIST 09/26/2024 10:25 PM ARBORICULTURIST Najma Pires MD LAB BLOOD ORDERABLES Final Result [facility] [place] [address] * (ABNORMAL) CBC with auto differential (09/26/2024 9:23 PM ARBORICULTURIST) WBC 7.0 3.8 - 9.9 K/cumm Hgb 11.1(L) 11.9 - 15.5 g/dL [facility] Hct 31.6(L) 35.6 - 45.5 % [facility] Plt 66(L) 150 - 400 K/cumm [facility] MPV 12.7(H) 9.1 - 12.3 fL [facility] RBC 3.44(L) 3.90 - 5.20 M/cumm [facility] MCV 91.9 81.3 - 96.4 fL [facility] MCH 32.3 27.1 - 33.3 pg [facility] MCHC 35.1 32.3 - 35.7 g/dL [facility] RDW CV 14.6 11.1 - 14.9 % [facility] RDW SD 49.0(H) 35.7 - 48.1 fL [facility] NRBC abs 0.00 0.00 - 0.01 K/cumm [facility] Blood 09/26/2024 9:23 PM ARBORICULTURIST 09/26/2024 10:25 PM ARBORICULTURIST Najma Pires MD LAB BLOOD ORDERABLES Final Result [facility] Department [place] [address] * (ABNORMAL) Protime-INR (09/26/2024 9:23 PM ARBORICULTURIST) PT 15.3(H) 9.7 - 13.0 sec INR 1.41(H) 0.90 - 1.20 [facility] Comment: Interpretive data Oral anticoagulant therapeutic ranges: Venous thromboembolism prophylaxis or treatment: 2.0-3.0 CARDIOLOGY Standard range: 2.0-3.0 High-intensity range: 2.5-3.5 Refer to indication-specific guidelines for appropriate target ranges for prosthetic heart valve replacement. Current interpretive data was last revised on 2019. Blood 09/26/2024 9:23 PM ARBORICULTURIST 09/26/2024 10:19 PM ARBORICULTURIST us Stuart Flores MD LAB BLOOD ORDERABLES Final Resul t [facility] Department [place] [address] * Phosphorus (09/26/2024 9:23 PM ARBORICULTURIST) [facility] Phosphorus, pl 3.2 2.3 - 4.5 mg/dL Comment:Repeated and Verifie d Blood 09/26/2024 9:23 PM ARBORICULTURIST 09/26/2024 10:24 PM ARBORICULTURIST us Stuart Flores MD LAB BLOOD ORDERABLES Final Resul t [facility] Department [place] [address] * (ABNORMAL) Magnesium (09/26/2024 9:23 PM ARBORICULTURIST) [facility] Magnesium 3.0(H) 1.4 - 2.5 mg/dL Blood 09/26/2024 9:23 PM ARBORICULTURIST 09/26/2024 10:24 PM ARBORICULTURIST us Stuart Flores MD LAB BLOOD ORDERABLES Final Resul t [facility] [place] [address] * (ABNORMAL) Comprehensive metabolic panel (09/26/2024 9:23 PM ARBORICULTURIST) Sodium 143 135 - 145 mmol/L Potassium, pl 3.3 3.3 - 4.9 mmol/L [facility] Chloride 100 97 - 110 mmol/L [facility] CO2 26 22 - 32 mmol/L [facility] Anion gap 17(H) 2 - 15 mmol/L [facility] BUN 93(H) 6 - 25 mg/dL [facility] Creatinine 4.70(H) 0.60 - 1.10 mg/dL [facility] Glucose 196 70 - 199 mg/dL [facility] Comment: Interpretive Data Fasting glucose >/= [...] 2022. Calcium 10.1 8.5 - 10.3 mg/dL [facility] Bilirubin, total 2.1(H) 0.1 - 1.2 mg/dL [facility] Protein, pl 6.6 6.5 - 8.5 g/dL [facility] Albumin 4.3 3.5 - 5.0 g/dL [facility] Alk phos 85 40 - 130 Units/L [facility] ALT 13 7 - 45 Units/L [facility] AST 30 10 - 45 Units/L [facility] Blood 09/26/2024 9:23 PM ARBORICULTURIST 09/26/2024 10:24 PM ARBORICULTURIST Najma Pires MD LAB BLOOD ORDERABLES Final Result Performing Organization Address [facility] Co de Phone Number [facility] [place] [address] * (ABNORMAL) POCT glucose (09/26/2024 7:53 PM ARBORICULTURIST) Glucose, POC 204(H) 70 - 199 mg/dL Blood 09/26/2024 7:53 PM ARBORICULTURIST 09/26/2024 7:53 PM ARBORICULTURIST Stuart Flores MD LAB POCT ORDERABLES - DEVICE Fin al Result Performing Organization Address [facility] Co de Phone Number [facility] [place] [address] * (ABNORMAL) POCT glucose (09/26/2024 4:37 PM ARBORICULTURIST) [facility] Glucose, POC 256(H) 70 - 199 mg/dL Blood 09/26/2024 4:37 PM ARBORICULTURIST 09/26/2024 4:37 PM ARBORICULTURIST Stuart Flores MD LAB POCT ORDERABLES - DEVICE Fin al Result Performing Organization Address [facility] de Phone Number [facility] [place] [address] * (ABNORMAL) eGFR (09/26/2024 3:40 PM ARBORICULTURIST) eGFR 9(L) >=60 mL/min/1. 73 m2 Comment: [...] last reviewed 2021. Blood 09/26/2024 3:40 PM ARBORICULTURIST 09/26/2024 5:50 PM ARBORICULTURIST us Stuart Flores MD LAB BLOOD ORDERABLES Final Resul t [facility] [place] [address] * (ABNORMAL) Basic metabolic panel (09/26/2024 3:40 PM ARBORICULTURIST) Sodium 139 135 - 145 mmol/L Potassium, pl 3.4 3.3 - 4.9 mmol/L [facility] Chloride 98 97 - 110 mmol/L [facility] CO2 25 22 - 32 mmol/L [facility] Anion gap 16(H) 2 - 15 mmol/L [facility] BUN 87(H) 6 - 25 mg/dL [facility] Creatinine 4.94(H) 0.60 - 1.10 mg/dL [facility] Glucose 273(H) 70 - 199 mg/dL [facility] Comment: Interpretive Data Fasting glucose >/= [...] 2022. Calcium 10.1 8.5 - 10.3 mg/dL [facility] Blood 09/26/2024 3:40 PM ARBORICULTURIST 09/26/2024 5:50 PM ARBORICULTURIST us Stuart Flores MD LAB BLOOD ORDERABLES Final Resul t Performing Organization Address [facility] de Phone Number [facility] [place] [address] * (ABNORMAL) POCT glucose (09/26/2024 11:16 AM ARBORICULTURIST) Glucose, POC 290(H) 70 - 199 mg/dL Blood 09/26/2024 11:1 6 AM ARBORICULTURIST 09/26/2024 11:16 AM ARBORICULTURIST Result Anitha Flores MD LAB POCT ORDERABLES - DEVICE Fin al Result Performing Organization Address [facility] de Phone Number [facility] [place] [address] * (ABNORMAL) POCT glucose (09/26/2024 9:40 AM ARBORICULTURIST) Glucose, POC 233(H) 70 - 199 mg/dL Blood 09/26/2024 9:40 AM ARBORICULTURIST 09/26/2024 9:40 AM ARBORICULTURIST us Stuart Flores MD LAB POCT ORDERABLES - DEVICE Fin al Result Performing Organization Address [facility] de Phone Number [facility] [place] [address] * (ABNORMAL) Lactate (09/26/2024 8:16 AM ARBORICULTURIST) Lactate 3.4(H) 0.7 - 2.0 mmol/L Blood 09/26/2024 8:16 AM ARBORICULTURIST 09/26/2024 8:25 AM ARBORICULTURIST us Stuart Flores MD LAB BLOOD ORDERABLES Final Resul t Performing Organization Address [facility] Co de Phone Number [facility] [place] [address] * (ABNORMAL) POCT glucose (09/26/2024 7:45 AM ARBORICULTURIST) Glucose, POC 305(H) 70 - 199 mg/dL Blood 09/26/2024 7:45 AM ARBORICULTURIST 09/26/2024 7:45 AM ARBORICULTURIST us Stuart Flores MD LAB POCT ORDERABLES - DEVICE Fin al Result Performing Organization Address [facility] de Phone Number [facility] [place] [address] * (ABNORMAL) POCT glucose (09/26/2024 4:26 AM ARBORICULTURIST) Glucose, POC 283(H) 70 - 199 mg/dL Blood 09/26/2024 4:26 AM ARBORICULTURIST 09/26/2024 4:26 AM ARBORICULTURIST us Stuart Flores MD LAB POCT ORDERABLES - DEVICE Fin al Result Performing Organization Address [facility] [place] [address] * CT Abdomen Pelvis WO Contrast (09/26/2024 3:17 AM ARBORICULTURIST) Anatomical Region Laterality Modality Body N/A Computed Tomogra phy 09/26/2024 3:35 AM ARBORICULTURIST Impressions 09/26/2024 8:12 AM ARBORICULTURIST 1. No acute intra-abdominal findings. 2. Cirrhotic [...] Juan Randall MD Narrative 09/26/2024 8:12 AM ARBORICULTURIST EXAMINATION: Computed tomography of the abdomen and [...] Result * (ABNORMAL) Lactate (09/26/2024 12:44 AM ARBORICULTURIST) Lactate 3.5(H) 0.7 - 2.0 mmol/L Blood 09/26/2024 12:4 4 AM ARBORICULTURIST 09/26/2024 1:06 AM ARBORICULTURIST us Stuart Flores MD LAB BLOOD ORDERABLES Final Resul t Performing Organization Address [facility] Co de Phone Number [facility] Department [place] [address] * (ABNORMAL) POCT glucose (09/26/2024 12:08 AM ARBORICULTURIST) Glucose, POC 302(H) 70 - 199 mg/dL Blood 09/26/2024 12:0 8 AM ARBORICULTURIST 09/26/2024 12:08 AM ARBORICULTURIST us Stuart Flores MD LAB POCT ORDERABLES - DEVICE Fin al Result Performing Organization Address [facility] Co de Phone Number [facility] [place] [address] * (ABNORMAL) eGFR (09/25/2024 10:48 PM ARBORICULTURIST) Pathologist [facility] eGFR 9(L) >=60 mL/min/1. 73 m2 Comment: [...] reviewed 2021. Blood 09/25/2024 10:4 8 PM ARBORICULTURIST 09/26/2024 12:38 AM ARBORICULTURIST us Najma Pires MD LAB BLOOD ORDERABLES Final Result [facility] [place] [address] * (ABNORMAL) Differential, auto (09/25/2024 10:48 PM ARBORICULTURIST) Pathologist [facility] Neutrophil abs 5.9 1.5 - 6.5 K/cumm Imm gran abs 0.0 0.0 - 0.1 K/cumm [facility] Lymphocyte abs 1.8 0.8 - 3.3 K/cumm [facility] Monocyte abs 1.2(H) 0.2 - 0.8 K/cumm [facility] Eosinophil abs 0.5 0.0 - 0.5 K/cumm [facility] Basophil abs 0.1 0.0 - 0.1 K/cumm [facility] Neutrophil pct 62.4 % [facility] Comment: Interpretive Data Percent cell count reference ranges are not reported, since discordance with absolute values may lead to misinterpretation of CBC data. Current Interpretive Data was last revised on 2017. Imm gran pct 0.2 % [facility] Comment: Interpretive Data Percent cell count reference ranges are not reported, since discordance with absolute values may lead to misinterpretation of CBC data. Current Interpretive Data was last revised on 2017. Lymphocyte pct 19.1 % [facility] Comment: Interpretive Data Percent cell count reference ranges are not reported, since discordance with absolute values may lead to misinterpretation of CBC data. Current Interpretive Data was last revised on 2017. Monocyte pct 12.3 % [facility] Comment: Interpretive Data Percent cell count reference ranges are not reported, since discordance with absolute values may lead to misinterpretation of CBC data. Current Interpretive Data was last revised on 2017. Eosinophil pct 5.4 % [facility] Comment: Interpretive Data Percent cell count reference ranges are not reported, since discordance with absolute values may lead to misinterpretation of CBC data. Current Interpretive Data was last revised on 2017. Basophil pct 0.6 % [facility] Comment: Interpretive Data Percent cell count reference ranges are not reported, since discordance with absolute values may lead to misinterpretation of CBC data. Current Interpretive Data was last revised on 2017. Blood 09/25/2024 10:4 8 PM ARBORICULTURIST 09/26/2024 12:37 AM ARBORICULTURIST us Najma Pires MD LAB BLOOD ORDERABLES Final Result [facility] Department of Laboratories [place], [place] [id number] * (ABNORMAL) CBC with auto differential (09/25/2024 10:48 PM ARBORICULTURIST) WBC 9.5 3.8 - 9.9 K/cumm Hgb 12.1 11.9 - 15.5 g/dL [facility] Hct 34.4(L) 35.6 - 45.5 % [facility] Plt 81(L) 150 - 400 K/cumm [facility] MPV 12.5(H) 9.1 - 12.3 fL [facility] RBC 3.85(L) 3.90 - 5.20 M/cumm [facility] MCV 89.4 81.3 - 96.4 fL [facility] MCH 31.4 27.1 - 33.3 pg [facility] MCHC 35.2 32.3 - 35.7 g/dL [facility] RDW CV 14.6 11.1 - 14.9 % [facility] RDW SD 46.7 35.7 - 48.1 fL [facility] NRBC abs 0.00 0.00 - 0.01 K/cumm [facility] Blood 09/25/2024 10:4 8 PM ARBORICULTURIST 09/26/2024 12:37 AM ARBORICULTURIST us Najma Pires MD LAB BLOOD ORDERABLES Final Result Performing Organization Address City/[facility] Co de Phone Number [facility] [place] [address] * (ABNORMAL) Protime-INR (09/25/2024 10:48 PM ARBORICULTURIST) PT 15.5(H) 9.7 - 13.0 sec INR 1.42(H) 0.90 - 1.20 [facility] Comment: Interpretive data Oral anticoagulant therapeutic ranges: Venous thromboembolism prophylaxis or treatment: 2.0-3.0 CARDIOLOGY Standard range: 2.0-3.0 High-intensity range: 2.5-3.5 Refer to indication-specific guidelines for appropriate target ranges for prosthetic heart valve replacement. Current interpretive data was last revised on 2019. Blood 09/25/2024 10:4 8 PM ARBORICULTURIST 09/26/2024 12:41 AM ARBORICULTURIST Stuart Flores MD LAB BLOOD ORDERABLES Final Resul t [facility] [place] [address] * (ABNORMAL) Comprehensive metabolic panel (09/25/2024 10:48 PM ARBORICULTURIST) Sodium 140 135 - 145 mmol/L Potassium, pl 2.8(L) 3.3 - 4.9 mmol/L [facility] Chloride 95(L) 97 - 110 mmol/L [facility] CO2 26 22 - 32 mmol/L [facility] Anion gap 19(H) 2 - 15 mmol/L [facility] BUN 89(H) 6 - 25 mg/dL [facility] Creatinine 5.24(H) 0.60 - 1.10 mg/dL [facility] Glucose 323(H) 70 - 199 mg/dL [facility] Comment: Interpretive Data Fasting glucose >/= [...] 2022. Calcium 10.2 8.5 - 10.3 mg/dL [facility] Bilirubin, total 2.1(H) 0.1 - 1.2 mg/dL [facility] Protein, pl 6.7 6.5 - 8.5 g/dL [facility] Albumin 3.9 3.5 - 5.0 g/dL [facility] Alk phos 97 40 - 130 Units/L [facility] ALT 15 7 - 45 Units/L [facility] AST 34 10 - 45 Units/L [facility] Blood 09/25/2024 10:4 8 PM ARBORICULTURIST 09/26/2024 12:38 AM ARBORICULTURIST Najma Pires MD LAB BLOOD ORDERABLES Final Result Performing Organization Address City/State/[facility] Co de Phone Number [facility] [place] [address] * (ABNORMAL) POCT glucose (09/25/2024 8:27 PM ARBORICULTURIST) Glucose, POC 318(H) 70 - 199 mg/dL Blood 09/25/2024 8:27 PM ARBORICULTURIST 09/25/2024 8:27 PM ARBORICULTURIST us Stuart Flores MD LAB POCT ORDERABLES - DEVICE Fin al Result Performing Organization Address [facility] de Phone Number [facility] [place] [address] * (ABNORMAL) POCT glucose (09/25/2024 6:12 PM ARBORICULTURIST) Glucose, POC 288(H) 70 - 199 mg/dL Blood 09/25/2024 6:1 2 PM ARBORICULTURIST 09/25/2024 6:12 PM ARBORICULTURIST us Stuart Flores MD LAB POCT ORDERABLES - DEVICE Fin al Result Performing Organization Address [facility] Co de Phone Number [facility] [place] [address] * (ABNORMAL) POCT glucose (09/25/2024 4:12 PM ARBORICULTURIST) Glucose, POC 263(H) 70 - 199 mg/dL Blood 09/25/2024 4:12 PM ARBORICULTURIST 09/25/2024 4:12 PM ARBORICULTURIST us Stuart Flores MD LAB POCT ORDERABLES - DEVICE Fin al Result Performing Organization Address [facility] Co de Phone Number [facility] [place] [address] * (ABNORMAL) Lactate (09/25/2024 3:24 PM ARBORICULTURIST) Lactate 4.9(C) 0.7 - 2.0 mmol/L Blood 09/25/2024 3:24 PM ARBORICULTURIST 09/25/2024 3:54 PM ARBORICULTURIST Stuart Flores MD LAB BLOOD ORDERABLES Final Resul t Performing Organization Address [facility] Co de Phone Number [facility] [place] [address] * Critical Result Callback Chemistry (09/25/2024 3:24 PM ARBORICULTURIST) Date Notified [id number] Time Notified 1625 [facility] TestName Lactate [facility] Called/Read Back Javier Thomas [facility] Credentials RN [facility] Called By MARTHA [facility] Blood 09/25/2024 3:24 PM ARBORICULTURIST 09/25/2024 3:54 PM ARBORICULTURIST Stuart Flores MD LAB BLOOD ORDERABLES Final Resul t Performing Organization Address [facility] de Phone Number [facility] [place] [address] * Urinalysis reflex to microscopic and culture Urine (09/25/2024 3:24 PM ARBORICULTURIST) Color, ur Yellow Yellow Clarity, ur Clear Clear [facility] Specific gravity, ur 1.017 1.003 - 1.030 [facility] pH, urine 5.5 [facility] Comment: Interpretive Data U rine pH is affected by diet, medications, systemic acid-base disturbances, and renal tubular function. pH may affect urinary stone formation. For example, urine pH below 6.0 may help reduce the tendency for calcium phosphate stones and pH greater than 6.0 may reduce the tendency for uric acid stone formation. Source: [facility] [employer] Current Interpretive Data was last revised on 2017 Protein, ur ql Negative Negative [facility] Glucose, ur ql Negative Negative [facility] Ketones, ur Negative Negative [facility] Bilirubin, ur Negative Negative [facility] Blood[facility] ur Negative Negative [facility] Urobilinogen, ur <2.0 <2.0 mg/dL [facility] Nitrite, ur Negative Negative [facility] Leukocyte esterase, ur Negative Negative [facility] UA reflex comment Reflex conditions for microscopic UA and culture not met. [facility] Urine 09/25/2024 3:24 PM ARBORICULTURIST 09/25/2024 3:42 PM ARBORICULTURIST us Britany Knight MD LAB MICROBIOLOGY - GENERAL ORD ERABLES Final Result Performing Organization Address [facility] Co de Phone Number [facility] [place] [address] * Sodium, urine, random (09/25/2024 3:24 PM ARBORICULTURIST) Sodium, ur 31 mmol/L Comment: Interpretive Data No reference range established. Current interpretive data was last revised 2018. Urine 09/25/2024 3:24 PM ARBORICULTURIST 09/25/2024 3:54 PM ARBORICULTURIST us Najma Pires MD LAB URINE ORDERABLES Final Result Performing Organization Address [facility] Co de Phone Number [facility] Department [place] [address] * (ABNORMAL) POCT glucose (09/25/2024 2:41 PM ARBORICULTURIST) Glucose, POC 315(H) 70 - 199 mg/dL Blood 09/25/2024 2:41 PM ARBORICULTURIST 09/25/2024 2:41 PM ARBORICULTURIST us Stuart Flores MD LAB POCT ORDERABLES - DEVICE Fin al Result Performing Organization Address [facility] Co de Phone Number [facility] Department [place] [address] * (ABNORMAL) POCT glucose (09/25/2024 12:32 PM ARBORICULTURIST) Glucose, POC 343(H) 70 - 199 mg/dL Blood 09/25/2024 12:3 2 PM ARBORICULTURIST 09/25/2024 12:32 PM ARBORICULTURIST us Stuart lFores MD LAB POCT ORDERABLES - DEVICE Fin al Result Performing Organization Address [facility] de Phone Number [facility] [place] [address] * (ABNORMAL) Troponin I high-sensitivity 4-hour (09/25/2024 11:38 AM ARBORICULTURIST) Pathologist [facility] Trop I hs 80(H) <=17 ng/L Comment: Interpretive Data For further hscTnI resources including the diagnostic algorithm and an aid in interpretation, copy and paste this link: https://bjhlab.testcatalog.org/show/hsTrop-1 Current Interpretive Data last revised 2020. Trop I hs delta 6 ng/L [facility] Trop I hs interp Equivocal [facility] Blood 09/25/2024 11:3 8 AM ARBORICULTURIST 09/25/2024 12:27 PM ARBORICULTURIST us Stuart Flores MD LAB BLOOD ORDERABLES Final Resul t Performing Organization Address [facility] de Phone Number [facility] [place] [address] * (ABNORMAL) POCT glucose (09/25/2024 11:14 AM ARBORICULTURIST) Glucose, POC 312(H) 70 - 199 mg/dL Blood 09/25/2024 11:1 4 AM ARBORICULTURIST 09/25/2024 11:14 AM ARBORICULTURIST us Stuart Flores MD LAB POCT ORDERABLES - DEVICE Fin al Result Performing Organization Address [facility]/ZIP Co de Phone Number [facility] Department [place] [address] * (ABNORMAL) Troponin I high-sensitivity 2-hour (09/25/2024 9:51 AM ARBORICULTURIST) Trop I hs 62(H) <=17 ng/L Comment: Previous critical value noted within 48 hours ago. Interpretive Data For further hscTnI resources including the diagnostic algorithm and an aid in interpretation, copy and paste this link: https://bjhlab.testcatalog.org/show/hsTrop-1 Current Interpretive Data last revised 2020. Trop I hs delta -12(C) ng/L [facility] Trop I hs interp Significa nt(C) [facility] Blood 09/25/2024 9:51 AM ARBORICULTURIST 09/25/2024 10:22 AM ARBORICULTURIST us Stuart Flores MD LAB BLOOD ORDERABLES Final Resul t Performing Organization Address [facility]/ZIP Co de Phone Number [facility] [place] [address] * Critical result callback Cardio chemistry (09/25/2024 9:51 AM ARBORICULTURIST) Date Notified [id number] Time Notified 1105 [facility] Test name Trop I hs 2hr [facility] Called/Read Back Javier [facility] Credentials TYRA [facility] Called By [facility] Blood 09/25/2024 9:51 AM ARBORICULTURIST 09/25/2024 10:22 AM ARBORICULTURIST us Stuart Flores MD LAB BLOOD ORDERABLES Final Resul t Performing Organization Address [facility]/ZIP Co de Phone Number [facility] Department [place] [address] * (ABNORMAL) POCT glucose (09/25/2024 9:19 AM ARBORICULTURIST) Glucose, POC 260(H) 70 - 199 mg/dL Blood 09/25/2024 9:19 AM ARBORICULTURIST 09/25/2024 9:19 AM ARBORICULTURIST us Stuart Flores MD LAB POCT ORDERABLES - DEVICE Fin al Result Performing Organization Address [facility] de Phone Number [facility] [place] [employer] [address] * (ABNORMAL) Troponin I high-sensitivity series (baseline, 2hr, 4hr, 6hr) (09/25/2024 7:44 AM ARBORICULTURIST) [facility] Trop I hs 74(H) <=17 ng/L Comment: Interpretive Data For further hscTnI resources including the diagnostic algorithm and an aid in interpretation, copy and paste this link: https://bjhlab.testcatalog.org/show/hsTrop-1 Current Interpretive Data last revised 2020. Blood 09/25/2024 7:44 AM ARBORICULTURIST 09/25/2024 7:57 AM ARBORICULTURIST us Stuart Flores MD LAB BLOOD ORDERABLES Final Resul t Performing Organization Address [facility] de Phone Number [facility] [place] [address] * (ABNORMAL) Lactate (09/25/2024 7:44 AM ARBORICULTURIST) [facility] Lactate 3.6(H) 0.7 - 2.0 mmol/L Blood 09/25/2024 7:44 AM ARBORICULTURIST 09/25/2024 7:57 AM ARBORICULTURIST us Stuart Flores MD LAB BLOOD ORDERABLES Final Resul t Performing Organization Address [facility] Co de Phone Number [facility] [place] [address] * (ABNORMAL) POCT glucose (09/25/2024 7:32 AM ARBORICULTURIST) Glucose, POC 311(H) 70 - 199 mg/dL Blood 09/25/2024 7:32 AM ARBORICULTURIST 09/25/2024 7:32 AM ARBORICULTURIST us Stuart Flores MD LAB POCT ORDERABLES - DEVICE Fin al Result Performing Organization Address [facility] de Phone Number [facility] [place] [address] * (ABNORMAL) POCT glucose (09/25/2024 4:12 AM ARBORICULTURIST) Glucose, POC 334(H) 70 - 199 mg/dL Blood 09/25/2024 4:12 AM ARBORICULTURIST 09/25/2024 4:12 AM ARBORICULTURIST us Stuart Flores MD LAB POCT ORDERABLES - DEVICE Fin al Result Performing Organization Address [facility] de Phone Number [facility] [place] [address] * (ABNORMAL) POCT glucose (09/25/2024 2:52 AM ARBORICULTURIST) Glucose, POC 360(H) 70 - 199 mg/dL Blood 09/25/2024 2:5 2 AM ARBORICULTURIST 09/25/2024 2:52 AM ARBORICULTURIST us Stuart Flores MD LAB POCT ORDERABLES - DEVICE Fin al Result Performing Organization Address [facility] de Phone Number [facility] [place] [address] * XR Abdomen Ap 1 Vw (09/25/2024 1:32 AM ARBORICULTURIST) Anatomical Region Laterality Modality Body, Abdomen N/A Digital Radiogra phy 09/25/2024 8:29 AM ARBORICULTURIST Impressions 09/25/2024 4:40 PM ARBORICULTURIST Gastric tube tip coils over the fundus [...] Nessa Dodson M.D. Narrative 09/25/2024 4:40 PM ARBORICULTURIST EXAMINATION: Abdomen, one view. HISTORY: Intubation of [...] * (ABNORMAL) POCT glucose (09/25/2024 12:11 AM ARBORICULTURIST) Glucose, POC 390(H) 70 - 199 mg/dL Comment:Glu2: TYRA/ Notified Glucose comment 1 Glu2: TYRA/ Notified [facility] Blood 09/25/2024 12:1 1 AM ARBORICULTURIST 09/25/2024 12:11 AM ARBORICULTURIST Stuart Flores MD LAB POCT ORDERABLES - DEVICE Fin al Result Performing Organization Address [facility] Co de Phone Number [facility] Department [place] [address] * (ABNORMAL) Troponin I high-sensitivity 6-hour (09/24/2024 11:56 PM ARBORICULTURIST) Trop I hs 57(H) <=17 ng/L Comment: Interpretive Data For further hscTnI resources including the diagnostic algorithm and an aid in interpretation, copy and paste this link: https://bjhlab.testcatalog.org/show/hsTrop-1 Current Interpretive Data last revised 2020. Trop I hs delta See Comment ng/L [facility] Comment:Inappropriate collec tion time to report a delta. Trop I hs pct delta See Comment % [facility] Comment:Inappropriate collec tion time to report a delta. Trop I hs interp See Comment [facility] Comment:Inappropriate collec tion time to report a delta. Blood 09/24/2024 11:5 6 PM ARBORICULTURIST 09/25/2024 12:10 AM ARBORICULTURIST us Britany Knight MD LAB BLOOD ORDERABLES Final Res ult Performing Organization Address [facility] Co de Phone Number [facility] Department [place] [address] * (ABNORMAL) eGFR (09/24/2024 11:56 PM ARBORICULTURIST) Pathologist [facility] eGFR 13(L) >=60 mL/min/1. 73 m2 Comment: [...] reviewed 2021. Blood 09/24/2024 11:5 6 PM ARBORICULTURIST 09/25/2024 12:21 AM ARBORICULTURIST us Najma Pires MD LAB BLOOD ORDERABLES Final Result [facility] [place] [address] * (ABNORMAL) Differential, auto (09/24/2024 11:56 PM ARBORICULTURIST) Neutrophil abs 12.8(H) 1.5 - 6.5 K/cumm Imm gran abs 0.1 0.0 - 0.1 K/cumm [facility] Lymphocyte abs 0.9 0.8 - 3.3 K/cumm [facility] Monocyte abs 1.2(H) 0.2 - 0.8 K/cumm [facility] Eosinophil abs 0.1 0.0 - 0.5 K/cumm [facility] Basophil abs 0.0 0.0 - 0.1 K/cumm [facility] Neutrophil pct 84.6 % [facility] Comment: Interpretive Data Percent cell count reference ranges are not reported, since discordance with absolute values may lead to misinterpretation of CBC data. Current Interpretive Data was last revised on 2017. Imm gran pct 0.5 % [facility] Comment: Interpretive Data Percent cell count reference ranges are not reported, since discordance with absolute values may lead to misinterpretation of CBC data. Current Interpretive Data was last revised on 2017. Lymphocyte pct 6.1 % [facility] Comment: Interpretive Data Percent cell count reference ranges are not reported, since discordance with absolute values may lead to misinterpretation of CBC data. Current Interpretive Data was last revised on 2017. Monocyte pct 7.6 % [facility] Comment: Interpretive Data Percent cell count reference ranges are not reported, since discordance with absolute values may lead to misinterpretation of CBC data. Current Interpretive Data was last revised on 2017. Eosinophil pct 0.9 % [facility] Comment: Interpretive Data Percent cell count reference ranges are not reported, since discordance with absolute values may lead to misinterpretation of CBC data. Current Interpretive Data was last revised on 2017. Basophil pct 0.3 % [facility] Comment: Interpretive Data Percent cell count reference ranges are not reported, since discordance with absolute values may lead to misinterpretation of CBC data. Current Interpretive Data was last revised on 2017. Blood 09/24/2024 11:5 6 PM ARBORICULTURIST 09/25/2024 12:10 AM ARBORICULTURIST us Najma Pires MD LAB BLOOD ORDERABLES Final Result [facility] [place] [address] * (ABNORMAL) CBC with auto differential (09/24/2024 11:56 PM ARBORICULTURIST) WBC 15.1(H) 3.8 - 9.9 K/cumm Hgb 15.3 11.9 - 15.5 g/dL [facility] Hct 42.8 35.6 - 45.5 % [facility] Plt 93(L) 150 - 400 K/cumm [facility] MPV 12.4(H) 9.1 - 12.3 fL [facility] RBC 4.80 3.90 - 5.20 M/cumm [facility] MCV 89.2 81.3 - 96.4 fL [facility] MCH 31.9 27.1 - 33.3 pg [facility] MCHC 35.7 32.3 - 35.7 g/dL [facility] RDW CV 14.4 11.1 - 14.9 % [facility] RDW SD 46.5 35.7 - 48.1 fL [facility] NRBC abs 0.00 0.00 - 0.01 K/cumm [facility] Blood 09/24/2024 11:5 6 PM ARBORICULTURIST 09/25/2024 12:10 AM ARBORICULTURIST Najma Pires MD LAB BLOOD ORDERABLES Final Result Performing Organization Address [facility] Co de Phone Number [facility] [place] [address] * [id number], Tumor Marker (09/24/2024 11:56 PM ARBORICULTURIST) alpha Fetoprotein <2.0 <=8.3 ng/mL Comment: Interpretive [...] 2018;[id number] Katya House et al. Clin Chem 2014;[id number]. Current interpretive data was last revised 2022. Blood 09/24/2024 11:5 6 PM ARBORICULTURIST 09/25/2024 12:09 AM ARBORICULTURIST Najma Pires MD LAB BLOOD ORDERABLES Final Result Performing Organization Address [facility] Co de Phone Number [facility] Department [place] [address] * (ABNORMAL) Protime-INR (09/24/2024 11:56 PM ARBORICULTURIST) PT 14.3(H) 9.7 - 13.0 sec INR 1.32(H) 0.90 - 1.20 [facility] Comment: Interpretive data Oral anticoagulant therapeutic ranges: Venous thromboembolism prophylaxis or treatment: 2.0-3.0 CARDIOLOGY Standard range: 2.0-3.0 High-intensity range: 2.5-3.5 Refer to indication-specific guidelines for appropriate target ranges for prosthetic heart valve replacement. Current interpretive data was last revised on 2019. Blood 09/24/2024 11:5 6 PM ARBORICULTURIST 09/25/2024 12:15 AM ARBORICULTURIST us Stuart Flores MD LAB BLOOD ORDERABLES Final Resul t Performing Organization Address [facility] de Phone Number [facility] Department [place] [address] * (ABNORMAL) Phosphorus (09/24/2024 11:56 PM ARBORICULTURIST) Pathologist [facility] Phosphorus, pl 6.9(H) 2.3 - 4.5 mg/dL Blood 09/24/2024 11:5 6 PM ARBORICULTURIST 09/25/2024 12:07 AM ARBORICULTURIST Najma Pires MD LAB BLOOD ORDERABLES Final Result Performing Organization Address [facility] de Phone Number [facility] [place] [address] * Magnesium (09/24/2024 11:56 PM ARBORICULTURIST) Magnesium 2.4 1.4 - 2.5 mg/dL Blood 09/24/2024 11:5 6 PM ARBORICULTURIST 09/25/2024 12:21 AM ARBORICULTURIST us Stuart Flores MD LAB BLOOD ORDERABLES Final Resul t Performing Organization Address [facility]/State/ZIP Co de Phone Number [facility] Department [place] [address] * (ABNORMAL) Comprehensive metabolic panel (09/24/2024 11:56 PM ARBORICULTURIST) Sodium 136 135 - 145 mmol/L Potassium, pl 3.5 3.3 - 4.9 mmol/L [facility] Chloride 92(L) 97 - 110 mmol/L [facility] CO2 25 22 - 32 mmol/L [facility] Anion gap 19(H) 2 - 15 mmol/L [facility] BUN 77(H) 6 - 25 mg/dL [facility] Creatinine 3.63(H) 0.60 - 1.10 mg/dL [facility] Glucose 410(H) 70 - 199 mg/dL [facility] Comment: Interpretive Data Fasting glucose >/= [...] 2022. Calcium 10.6(H) 8.5 - 10.3 mg/dL [facility] Bilirubin, total 2.3(H) 0.1 - 1.2 mg/dL [facility] Protein, pl 7.0 6.5 - 8.5 g/dL [facility] Albumin 3.3(L) 3.5 - 5.0 g/dL [facility] Alk phos 122 40 - 130 Units/L [facility] ALT 21 7 - 45 Units/L [facility] AST 47(H) 10 - 45 Units/L [facility] Blood 09/24/2024 11:5 6 PM ARBORICULTURIST 09/25/2024 12:07 AM ARBORICULTURIST Najma Pires MD LAB BLOOD ORDERABLES Final Result Performing Organization Address [facility] de Phone Number [facility] Department [place] [address] * (ABNORMAL) Sepsis Lactate w/ Reflex (09/24/2024 11:55 PM ARBORICULTURIST) Sepsis Lactate 5.1(C) 0.7 - 2.0 mmol/L Blood 09/24/2024 11:5 5 PM ARBORICULTURIST 09/25/2024 12:16 AM ARBORICULTURIST Britany Knight MD LAB BLOOD ORDERABLES Final Res ult Performing Organization Address [facility] de Phone Number [facility] [place] [address] * Critical Result Callback Chemistry (09/24/2024 11:55 PM ARBORICULTURIST) Date Notified 20240925 Time Notified 38 [facility] TestName Sepsis Lactate [facility] Called/Read Back Katia [facility] Credentials RN [facility]IS[facility] Called By SHASTA [facility] Blood 09/24/2024 11:5 5 PM ARBORICULTURIST 09/25/2024 12:16 AM ARBORICULTURIST us Britany Knight MD LAB BLOOD ORDERABLES Final Res ult Performing Organization Address [facility] de Phone Number [facility] Department [place] [address] * (ABNORMAL) POCT glucose (09/24/2024 11:08 PM ARBORICULTURIST) Glucose, POC 363(H) 70 - 199 mg/dL Blood 09/24/2024 11:0 8 PM ARBORICULTURIST 09/24/2024 11:08 PM ARBORICULTURIST Stuart Flores MD LAB POCT ORDERABLES - DEVICE Fin al Result Performing Organization Address [facility] Co de Phone Number [facility] [place] [address] * XR Chest 1 View (09/24/2024 11:02 PM ARBORICULTURIST) Anatomical Region Laterality Modality Body, Chest N/A Computed Radiogr aphy 09/25/2024 10:0 6 AM ARBORICULTURIST Impressions 09/25/2024 10:06 AM ARBORICULTURIST Comparison is made to prior from 09/24/2024. Nasogastric tube terminates below the diaphragms. Heart size is normal. Lungs are clear. No pleural effusion or pneumothorax. Electronically signed by: Louie Lynne M.D. Narrative 09/25/2024 10:06 AM ARBORICULTURIST EXAMINATION: 1 view chest radiograph Procedure Note [...] US Liver Doppler Complete (09/24/2024 9:07 PM ARBORICULTURIST) Anatomical Region Laterality Modality Vascular N/A Ultrasound 09/25/2024 8:56 AM ARBORICULTURIST Impressions 09/25/2024 12:48 PM ARBORICULTURIST 1. Reversed flow within the portosystemic confluence, [...] Juan Morris M.D. Narrative 09/25/2024 12:48 PM ARBORICULTURIST EXAMINATION: US LIVER DOPPLER COMPLETE HISTORY: 63 [...] * (ABNORMAL) POCT glucose (09/24/2024 8:08 PM ARBORICULTURIST) Glucose, POC 384(H) 70 - 199 mg/dL Comment:Glu2: RN/MD Notified Glucose comment 1 Glu2: RN/MD Notified [facility] Blood 09/24/2024 8:08 PM ARBORICULTURIST 09/24/2024 8:08 PM ARBORICULTURIST us Stuart Flores MD LAB POCT ORDERABLES - DEVICE Fin al Result [facility] Department [place] [address] * PA CRITICAL CARE ILL/INJURED PATIENT INIT 30-74 MIN (09/24/2024 4:23 PM ARBORICULTURIST) Narrative Paxton Hawk MD - 09/24/2024 4:23 PM ARBORICULTURIST Paxton Hawk MD 09/24/2024 4:25 PM Critical [...] Sepsis Lactate w/ Reflex (09/24/2024 2:37 PM ARBORICULTURIST) Sepsis Lactate 4.1(C) 0.7 - 2.0 mmol/L Comment:reviewed Blood 09/24/2024 2:37 PM ARBORICULTURIST 09/24/2024 2:44 PM ARBORICULTURIST Britany Knight MD LAB BLOOD ORDERABLES Final Res ult [facility] Department [place] [address] * Critical Result Callback Chemistry (09/24/2024 2:37 PM ARBORICULTURIST) Date Notified 20240924 Time Notified 1451 CHARISSA SAHNI TestName Sepsis Lactate [facility] Called/Read Back Britany Knight Credentials RN [facility]SA [facility] Called By ra CHARISSA [facility] Blood 09/24/2024 2:37 PM ARBORICULTURIST 09/24/2024 2:44 PM ARBORICULTURIST Britany Knight MD LAB BLOOD ORDERABLES Final Res ult Performing Organization Address [facility]/ZIP [place] [address] * (ABNORMAL) Troponin I high-sensitivity 2-hour (09/24/2024 2:36 PM ARBORICULTURIST) Trop I hs 26(H) <=17 ng/L Comment: Interpretive Data For further hscTnI resources including the diagnostic algorithm and an aid in interpretation, copy and paste this link: https://bjhlab.testcatalog.org/show/hsTrop-1 Current Interpretive Data last revised 2020. Trop I hs delta 2 ng/L [facility] Trop I hs interp Insignificant [facility] Blood 09/24/2024 2:36 PM ARBORICULTURIST 09/24/2024 3:01 PM ARBORICULTURIST Britany Knight MD LAB BLOOD ORDERABLES Final Res ult Performing Organization Address [facility] Co de Phone Number [facility] [place] [address] * Blood culture Blood (09/24/2024 2:36 PM ARBORICULTURIST) Report Final Report: No growth Blood 09/24/2024 2:36 PM ARBORICULTURIST 09/24/2024 2:44 PM ARBORICULTURIST Narrative [facility] - 09/29/2024 3:10 PM ARBORICULTURIST Collection->Peripheral 1. Blood cultures are incubated for [...] performance characteristics have been verified by the [facility] Microbiology Laboratory. For questions about this culture, contact the Microbiology Laboratory at [phone]. Interpretive data was last revised on 24. Britany Knight MD LAB MICROBIOLOGY - GENERAL ORD ERABLES Final Result [facility] Department [place] [address] * Respiratory pathogen panel Nasopharyngeal (09/24/2024 1:39 PM ARBORICULTURIST) Pathologist [facility] Influenza A RNA Not Detected Not Detected Influenza B RNA Not Detected Not Detected [facility] RSV RNA Not Detected Not Detected [facility] COVID-19 RNA Not Detected Not Detected [facility] Coronavirus 229E RNA Not Detected Not Detected [facility] Coronavirus HKU1 RNA Not Detected Not Detected [facility] Coronavirus NL63 RNA Not Detected Not Detected [facility] Coronavirus OC43 RNA Not Detected Not Detected [facility] Adenovirus DNA Not Detected Not Detected [facility] Metapneumovirus RNA Not Detected Not Detected [facility] Rhinovirus/Enterov irus RNA Not Detected Not Detected [facility] Parainfluenza 1 RNA Not Detected Not Detected [facility] Parainfluenza 2 RNA Not Detected Not Detected [facility] Parainfluenza 3 RNA Not Detected Not Detected [facility] Parainfluenza 4 RNA Not Detected Not Detected [facility] B. pertussis DNA Not Detected Not Detected [facility] B. parapertussis DNA Not Detected Not Detected [facility] C. pneumoniae DNA Not Detected Not Detected [facility] M. pneumoniae DNA Not Detected Not Detected [facility] Nasopharyngeal 09/24/2024 1: 39 PM ARBORICULTURIST 09/24/2024 1:49 PM ARBORICULTURIST Diane [facility] - 09/24/2024 3:12 PM ARBORICULTURIST Is the Patient experiencing symptoms consistent with COVID?->Yes Surveillance testing for transplant patient?->No Interpretive Data The [employer] FilmArray Respiratory Panel (RP2.1) assay is a [...] assay has FDA clearance for testing of MANAGER PROTEIN swabs. The performance of additional specimen types has been assessed by the performing laboratory. The performance characteristics of this assay have been determined by [facility] Molecular Infectious Disease Laboratory. Current interpretive data was last revised on 22. Britany Knight MD LAB MICROBIOLOGY - GENERAL ORD ERABLES Final Result Performing Organization Address City/[facility]/ZIP Co de Phone Number [facility]SA [facility] Department [place] [address] * Blood culture Blood (09/24/2024 1:39 PM ARBORICULTURIST) Report Final Report: No growth Blood 09/24/2024 1:39 PM ARBORICULTURIST 09/24/2024 1:50 PM ARBORICULTURIST Narrative [facility] - 09/29/2024 3:05 PM ARBORICULTURIST Collection->Peripheral 1. Blood cultures are incubated for [...] performance characteristics have been verified by the [facility]biology [facility]. For questions about this culture, contact the Microbiology Laboratory at [phone]. Interpretive data was last revised on 24. Britany Knight MD LAB MICROBIOLOGY - GENERAL ORD ERABLES Final Result Performing Organization Address [facility]/ZIP Co de Phone Number [facility]SA [facility] [place] [address] * XR Chest 1 Vw Portable (09/24/2024 12:59 PM ARBORICULTURIST) Anatomical Region Laterality Modality Body, Chest N/A Computed Radiogr aphy 09/24/2024 1:05 PM ARBORICULTURIST Impressions 09/24/2024 1:05 PM ARBORICULTURIST Comparison April 2024. Small lung volumes with mild scattered atelectasis throughout the lung. Given some limitations of portable technique, No focal consolidation suspicious for pneumonia. No pulmonary edema, pleural effusion, or pneumothorax. The heart and mediastinal contours are unchanged. Electronically signed by: Mohinder Ferro M.D. Narrative 09/24/2024 1:05 PM ARBORICULTURIST EXAMINATION: 1 view chest radiograph Procedure Note [...] * POCT ketone, blood (09/24/2024 12:40 PM ARBORICULTURIST) Beta-Hydroxybut yrate, POC 0.4 0.0 - 0.5 mmol/L Blood 09/24/2024 12:4 0 PM ARBORICULTURIST 09/24/2024 12:40 PM ARBORICULTURIST us Stuart Flores MD LAB POCT ORDERABLES - DEVICE Fin al Result [facility] Department of Laboratories [place], [place] [id number] * (ABNORMAL) POCT glucose (09/24/2024 12:37 PM ARBORICULTURIST) Glucose, POC 329(H) 70 - 199 mg/dL Blood 09/24/2024 12:3 7 PM ARBORICULTURIST 09/24/2024 12:37 PM ARBORICULTURIST Louie Malone MD LAB POCT ORDERABLES - DEVICE Final Result Performing Organization Address [facility] Co de Phone Number CHARISSA [facility] [place] [address] * (ABNORMAL) Troponin I high-sensitivity series (baseline, 2hr, 4hr, 6hr) (09/24/2024 12:35 PM ARBORICULTURIST) Pathologist [facility] Trop I hs 24(H) <=17 ng/L Comment: Interpretive Data For further hscTnI resources including the diagnostic algorithm and an aid in interpretation, copy and paste this link: https://bjhlab.testcatalog.org/show/hsTrop-1 Current Interpretive Data last revised 2020. Blood 09/24/2024 12:3 5 PM ARBORICULTURIST 09/24/2024 12:59 PM ARBORICULTURIST Britany Knight MD LAB BLOOD ORDERABLES Final Res ult Performing Organization Address [facility] Co de Phone Number [facility] [place] [address] * (ABNORMAL) Sepsis Lactate w/ Reflex (09/24/2024 12:35 PM ARBORICULTURIST) [facility] Sepsis Lactate 4.4(C) 0.7 - 2.0 mmol/L Blood 09/24/2024 12:3 5 PM ARBORICULTURIST 09/24/2024 12:48 PM ARBORICULTURIST Britany Knight MD LAB BLOOD ORDERABLES Final Res ult Performing Organization Address City/[facility]/ZIP Co de Phone Number [facility] [place] [address] * (ABNORMAL) eGFR (09/24/2024 12:35 PM ARBORICULTURIST) [facility] eGFR 18(L) >=60 mL/min/1. 73 m2 Comment: [...] reviewed 2021. Blood 09/24/2024 12:3 5 PM ARBORICULTURIST 09/24/2024 12:59 PM ARBORICULTURIST us Britany Knight MD LAB BLOOD ORDERABLES Final Res ult [facility] [place] [address] * Differential, auto (09/24/2024 12:35 PM ARBORICULTURIST) [facility] Neutrophil abs 5.4 1.5 - 6.5 K/cumm Imm gran abs 0.0 0.0 - 0.1 K/cumm [facility] Lymphocyte abs 0.9 0.8 - 3.3 K/cumm [facility] Monocyte abs 0.6 0.2 - 0.8 K/cumm [facility] Eosinophil abs 0.2 0.0 - 0.5 K/cumm [facility] Basophil abs 0.0 0.0 - 0.1 K/cumm [facility] Neutrophil pct 74.8 % [facility] Comment: Interpretive Data Percent cell count reference ranges are not reported, since discordance with absolute values may lead to misinterpretation of CBC data. Current Interpretive Data was last revised on 2017. Imm gran pct 0.6 % [facility] Comment: Interpretive Data Percent cell count reference ranges are not reported, since discordance with absolute values may lead to misinterpretation of CBC data. Current Interpretive Data was last revised on 2017. Lymphocyte pct 12.7 % [facility] Comment: Interpretive Data Percent cell count reference ranges are not reported, since discordance with absolute values may lead to misinterpretation of CBC data. Current Interpretive Data was last revised on 2017. Monocyte pct 8.7 % [facility] Comment: Interpretive Data Percent cell count reference ranges are not reported, since discordance with absolute values may lead to misinterpretation of CBC data. Current Interpretive Data was last revised on 2017. Eosinophil pct 2.9 % [facility] Comment: Interpretive Data Percent cell count reference ranges are not reported, since discordance with absolute values may lead to misinterpretation of CBC data. Current Interpretive Data was last revised on 2017. Basophil pct 0.3 % [facility] Comment: Interpretive Data Percent cell count reference ranges are not reported, since discordance with absolute values may lead to misinterpretation of CBC data. Current Interpretive Data was last revised on 2017. Blood 09/24/2024 12:3 5 PM ARBORICULTURIST 09/24/2024 12:59 PM ARBORICULTURIST us Britany Knight MD LAB BLOOD ORDERABLES Final Res ult [facility] Department [place] [address] * Critical Result Callback Chemistry (09/24/2024 12:35 PM ARBORICULTURIST) Date Notified 20240924 Time Notified 1253 CHARISSA DUNNE TestName Sepsis Lactate CHARISSA DUNNE Called/Read Back Lauren DUNNE Credentials RN CHARISSA DUNNE Called By kati DUNNE Blood 09/24/2024 12:3 5 PM ARBORICULTURIST 09/24/2024 12:48 PM ARBORICULTURIST Britany Knight MD LAB BLOOD ORDERABLES Final Res ult Performing Organization Address [facility]/ZIP Co de Phone Number [facility] Department [place] [employer] [address] * (ABNORMAL) CBC with auto differential (09/24/2024 12:35 PM ARBORICULTURIST) [facility] WBC 7.2 3.8 - 9.9 K/cumm Hgb 14.7 11.9 - 15.5 g/dL [facility] Hct 42.0 35.6 - 45.5 % [facility] Plt 101(L) 150 - 400 K/cumm [facility] MPV 12.0 9.1 - 12.3 fL [facility] RBC 4.72 3.90 - 5.20 M/cumm [facility] MCV 89.0 81.3 - 96.4 fL [facility] MCH 31.1 27.1 - 33.3 pg [facility] MCHC 35.0 32.3 - 35.7 g/dL [facility] RDW CV 14.5 11.1 - 14.9 % [facility] RDW SD 46.3 35.7 - 48.1 fL [facility] NRBC abs 0.00 0.00 - 0.01 K/cumm [facility] Blood 09/24/2024 12:3 5 PM ARBORICULTURIST 09/24/2024 12:59 PM ARBORICULTURIST Britany Knight MD LAB BLOOD ORDERABLES Final Res ult [facility] [place] [address] * aPTT (09/24/2024 12:35 PM ARBORICULTURIST) [facility] aPTT 33 28 - 38 sec Comment: Interpretive Data Heparin therapeutic range: 66.0 - 100.0 seconds. Range based on correlation with therapeutic heparin activity range of 0.3 - 0.7 Units/mL. Current interpretive data was last revised on 2023. Blood 09/24/2024 12:3 5 PM ARBORICULTURIST 09/24/2024 12:52 PM ARBORICULTURIST Result [facility] Britany Knight MD LAB BLOOD ORDERABLES Final Res ult Performing Organization Address [facility] de Phone Number [facility] [place] [address] * (ABNORMAL) Protime-INR (09/24/2024 12:35 PM ARBORICULTURIST) PT 14.1(H) 9.7 - 13.0 sec INR 1.30(H) 0.90 - 1.20 [facility] Comment: Interpretive data Oral anticoagulant therapeutic ranges: Venous thromboembolism prophylaxis or treatment: 2.0-3.0 CARDIOLOGY Standard range: 2.0-3.0 High-intensity range: 2.5-3.5 Refer to indication-specific guidelines for appropriate target ranges for prosthetic heart valve replacement. Current interpretive data was last revised on 2019. Blood 09/24/2024 12:3 5 PM ARBORICULTURIST 09/24/2024 12:52 PM ARBORICULTURIST Result [facility] Britany Knight MD LAB BLOOD ORDERABLES Final Res ult Performing Organization Address [facility] de Phone Number [facility] [place] [address] * Type and screen (09/24/2024 12:35 PM ARBORICULTURIST) Rosemarie, indirect Negative ABO Rh A Positive [facility] Blood 09/24/2024 12:3 5 PM ARBORICULTURIST 09/24/2024 1:15 PM ARBORICULTURIST Narrative [facility] - 09/24/2024 2:15 PM ARBORICULTURIST Has the patient had Daratumumab or Isatuximab in the past 6 months?->Unknown Result [facility] Britany Knight MD LAB BLOOD BANK TEST ORDERABLES Final Result Performing Organization Address [facility] Co de Phone Number [facility] [place] [address] * Blood gas, venous (09/24/2024 12:35 PM ARBORICULTURIST) pH, Venous 7.39 7.32 - 7.43 PCO2, Venous 48 40 - 50 mmHg [facility] PO2, Venous 37 mmHg [facility] Comment: Interpretive Data No Reference Range Established Current Interpretive Data was last revised on 2017. HCO3 Venous, Calculated 30 20 - 30 mmol/L [facility] BE, venous 3 mmol/L [facility] Comment: Interpretive Data No Reference Range Established Current Interpretive Data was last revised on 2017. Blood 09/24/2024 12:3 5 PM ARBORICULTURIST 09/24/2024 12:48 PM ARBORICULTURIST Britany Knight MD LAB BLOOD ORDERABLES Final Res ult Performing Organization Address [facility] Co de Phone Number [facility] [place] [employer] [address] * (ABNORMAL) Ammonia (09/24/2024 12:35 PM ARBORICULTURIST) Ammonia 95(H) <=50 mcmol/L Blood 09/24/2024 12:3 5 PM ARBORICULTURIST 09/24/2024 12:52 PM ARBORICULTURIST Britany Knight MD LAB BLOOD ORDERABLES Final Res ult Performing Organization Address [facility] Co de Phone Number [facility] [place] [address] * (ABNORMAL) Hepatic function panel (09/24/2024 12:35 PM ARBORICULTURIST) Bilirubin, total 3.0(H) 0.1 - 1.2 mg/dL Bilirubin, direct 1.0(H) 0.1 - 0.3 mg/dL [facility] Protein, pl 7.1 6.5 - 8.5 g/dL [facility] Albumin 3.2(L) 3.5 - 5.0 g/dL [facility] Alk phos 118 40 - 130 Units/L [facility] ALT 18 7 - 45 Units/L [facility] AST 53(H) 10 - 45 Units/L [facility] Blood 09/24/2024 12:3 5 PM ARBORICULTURIST 09/24/2024 12:59 PM ARBORICULTURIST us Britany Knight MD LAB BLOOD ORDERABLES Final Res ult [facility] [place] [address] * (ABNORMAL) Basic metabolic panel (09/24/2024 12:35 PM ARBORICULTURIST) Sodium 133(L) 135 - 145 mmol/L Potassium, pl 3.5 3.3 - 4.9 mmol/L [facility] Chloride 90(L) 97 - 110 mmol/L [facility] CO2 26 22 - 32 mmol/L [facility] Anion gap 17(H) 2 - 15 mmol/L [facility] BUN 64(H) 6 - 25 mg/dL [facility] Creatinine 2.92(H) 0.60 - 1.10 mg/dL [facility] Glucose 349(H) 70 - 199 mg/dL [facility] Comment: Interpretive Data Fasting glucose >/= [...] 2022. Calcium 11.1(H) 8.5 - 10.3 mg/dL [facility] Blood 09/24/2024 12:3 5 PM ARBORICULTURIST 09/24/2024 12:59 PM ARBORICULTURIST Britany Knight MD LAB BLOOD ORDERABLES Final Res ult [facility] [place] [address] * Neuro CT Outside Consult (09/24/2024 12:33 PM ARBORICULTURIST) Anatomical Region Laterality Modality N/A Computed Tomogra phy 09/24/2024 12:4 7 PM ARBORICULTURIST Impressions 09/24/2024 12:47 PM ARBORICULTURIST No acute intracranial abnormality. The findings and impression are based on the available images, which may not be route sales representative of the entire organ or disease entity. Also note that ultrasound image acquisition is kicking machine operator dependent, and that the study was performed outside our facility with no control over image acquisition. In addition, the provided images may or may not represent the ione source data set and thus may contain [...] Anastacio Angulo MD Narrative 09/24/2024 12:47 PM ARBORICULTURIST EXAMINATION: RADIOLOGY CONSULTATION ON OUTSIDE IMAGING STUDY STUDY INITIALLY PERFORMED: 09/24/2024 at [facility]. TYPE OF STUDY: Multiple CT images without [...] IMAGING STUDY STUDY INITIALLY PERFORMED: 09/24/2024 at [facility]. TYPE OF STUDY: Multiple CT images without [...] the available images, which may not be route sales representative of the entire organ or disease entity. Also note that ultrasound image acquisition is kicking machine operator dependent, and that the study was performed outside our facility with no control over image acquisition. In addition, the provided images may or may not represent the ione source data set and thus may contain [...] * XR Outside Reference (09/24/2024 12:28 PM ARBORICULTURIST) Impressions RAD_PACS_[facility] - 09/24/2024 12:28 PM ARBORICULTURIST These images are for Reference purposes only and have not been reviewed by [facility] Radiology. There will be no report generated by a [facility] Radiologist. Narrative RAD_PACS_[facility] - 09/24/2024 12:28 PM ARBORICULTURIST EXAMINATION: Images For Reference Purposes Only Britany Knight MD IMG XR PROCEDURES Final Result Performing Organization Address City/[facility]/ZIP Co de Phone Number RAD_PACS[facility] * HLA Antibody Screen by PRA or SAB per Schedule (Class I and Class II) (09/21/2024 1:00 PM ARBORICULTURIST) Blood 09/21/2024 1:00 PM ARBORICULTURIST Narrative HISTOTRAC - ARBORICULTURIST Sample received in lab. Single Antigen Antibody Screen ordered. Timothy Pardo MD LAB BLOOD ORDERABL ES Final Result Performing Organization Address [facility] de Phone Number HISTOTRAC * HLA Antibody Screen - SAB (Class I and Class II) (09/21/2024 1:00 PM ARBORICULTURIST) Class I Treatment EDTA HISTOT[facility]AC Class I [...] DR10, DR12, DR52 HISTOTRAC 09/21/2024 1:00 PM ARBORICULTURIST 09/29/2024 9:55 AM ARBORICULTURIST Narrative HISTOTRAC - 09/29/2024 9:55 AM ARBORICULTURIST Single-antigen HLA antibody screen is performed on serum samples using a method developed and validated by the [facility] HLA laboratory based on an FDA-approved IVD kit (Reblecreen Single-Antigen, [employer], [place], [place]). All patient serum samples are pretreated with EDTA before the screen to prevent complement interference. Additional serum treatments, such as adsorption and DTT treatment, may be performed as indicated. Interpretive comments: Low risk: MFI 8035-9211. Moderate risk: MFI 4809-9276. Increased risk: MFI >/= 5000. The presence [...] antigens to avoid. Testing performed at the [facility], [address] [place] [address], 5th floor, [place], [address]. [facility] # [id number]. Rani Smith, Ph.D., Hr Assistant, HLA Laboratory Aurelio Palafox M.D., Ph.D., Slusher Operator, HLA Laboratory Norma Talamantes, Ph.D., CLIA Slusher Operator, [facility] Current methodology and interpretive comments last revised on 09/06/2022. us Timothy Pardo MD LAB BLOOD ORDERABL ES Final Result HISTOTRAC * Pap and High Risk HPV and Genotyping (Cytology Component) (04/28/2024 10:41 AM CDT) Thin prep (Pap test) 04/28/2024 10:41 AM CDT 04/28/2024 1:00 PM CDT Narrative PATHOLOGY [facility] - 05/04/2024 4:21 PM CDT EPIC results best viewed via link to PDF [facility] Chelsea Cronin Laboratory [place] [address] Note to Patients: This report may contain [...] REPORT FINAL Patient Name: NAEL CARDOZA Gender: F : 1960 (Age: 63) Address: [address] [place], [place] [id number] Hospital #: [id number] Service: Medical Location: [place] [address] Patient Type: [facility] Inpatient Taken: 04/28/2024 Received: 04/28/2024 Accessioned: [...] this test have been verified by the [facility] Molecular Infectious Disease laboratory. Correlate with [...] clinical information and biopsy results as indicated. [facility] Clinical Laboratory Improvement Amendments (CLIA) mandate that cytologic and histologic results be correlated for laboratory quality improvement engineer & improvement standards. FOR ALL HIGH-GRADE [...] determined by the Surgical Pathology Department at [facility] as part of an ongoing quality rn program and in compliance with federally mandated [...] determined by the Surgical Pathology Department of [facility]. It has not been cleared or approved by the U. S. Food and Drug Administration. Eladio Carey MD LAB CYTOLOGY ORDERABLES Final Result Performing Organization Address City/State/[facility] Co de Phone Number PATHOLOGY [facility] 3rd Floor [place], [place] [phone] * Screening Mammogram Bilateral W Pal (04/27/2024 1:55 PM CDT) Anatomical Region Laterality Modality Breast Bilateral Mammography Narrative 04/27/2024 1:52 PM CDT Mammogram Technique: Bilateral Digital Breast Tomosynthesis, Bilateral C-view 2D Screening mammogram. Views obtained: bilateral craniocaudal and bilateral mediolateral oblique. Computer Aided Detection was performed. Mammogram Findings: The present examination has been compared to prior imaging studies performed at [facility] on 05/15/2021 and 12/06/2021. There are [...] compared to prior imaging studies performed at [facility] on 05/15/2021 and 12/06/2021. There are [...] revised on 2018. Triglycerides 43 <=149 mg/dL [facility] Comment: Interpretive Data Ages < or [...] revised on 2018. HDL 64 >=40 mg/dL [facility] Comment: Interpretive Data Ages < or [...] 2018. LDL, calculated 47 <=129 mg/dL [facility] Comment: Interpretive Data Ages < or [...] on 2024. Non-HDL Cholesterol 58 mg/dL [facility] Comment: Interpretive Data Ages < or [...] last revised on 2018. Chol/HDL ratio 2 [facility] Blood 04/22/2024 12:5 8 AM CDT 04/22/2024 3:00 AM CDT us John Paul Reddy MD LAB BLOOD ORDERABLES Final Resul t [facility] Department [place] [address] * Hepatitis C antibody Blood (06/16/2023 6:09 AM ARBORICULTURIST) Hep C Ab Nonreactive Nonreactive [facility] Comment:Antibodies to HCV no t detected. Does NOT exclude the possibility of recent exposure to HCV. Current interpretive data was last revised on 22 Blood 06/16/2023 6:09 AM ARBORICULTURIST 06/16/2023 6:35 AM ARBORICULTURIST us Alejandro Frazier MD LAB MICROBIOLOGY - GENERAL ORDERABLES Final Result [facility] Ivan [facility] [place] [address] * COLONOSCOPY (05/30/2022 9:28 AM CDT) Anatomical Region Laterality Modality Other Narrative Procedure Note Pat Robins MD - 05/30/2022 9:28 AM CDT GI ENDOSCOPY [facility] Patient Name: Nael Cardoza Procedure Date: 05/30/2022 9:28 AM Date of : 1960 Admit Type: Outpatient Age: 61 Gender: Female Attending MD: Pat Robins M.D. Room: [facility] ENDOSCOPY ROOM 3 Note Status: Finalized Procedure: [...] The scope was passed under direct vision.The [facility] [id number] endoscope was introducedthrough the anus and [...] On: 05/30/2022 9:28 AM Recognized by the [place] [employer] Gastrointestinal Endoscopy for promoting quality in endoscopy Pat Robins MD ENDOSCOPY PROCEDURES Ju l Result * Albumin Creatinine Ratio, Urine (03/01/2021 2:45 PM CDT) Albumin Ur <12.0 mg/L [facility] Comment: Interpretive Data No reference range established. Current interpretive data was last revised 2018. Creatinine Ur 59.5 mg/dL [facility] Comment: Interpretive Data No reference range established. Current interpretive data was last revised 2018. Albumin Creatinine Ratio, Ur <20 1 - 29 mg/g [facility] Urine 03/01/2021 2:45 PM CDT 03/01/2021 3:41 PM CDT us Oly Baker MD LAB URINE ORDER RAVEN Final Result [facility] Department [place] [address] from Last 3 Months or Most Recently Relevant to Health Maintenance Insurance [facility] EPO [employer] [place] ANTH ACCESS [employer] [facility] TRANSPLANT [facility] MEDICARE ADVANTAGE [facility] MEDICARE ADVANTAGE TRANSPLANT [employer] MEDICARE RISK TRANSPLANT [employer] MEDICARE [place] [address] Advance Directives For more information, please contact: [phone] * Full Code (Latest Code Status on [...] 8:35 AM 02/05/2023 7:30 PM Care Teams Railway Patrol Officer Relationship Specialty Start Date End Date Maddy Romano MD [address] [place] [address] PCP - General 09/28/16 Manas Ibarra MD [address] [place], [place] [id number] Referring Physician Thoracic Surgery 11/05/18 Zion Barton MD [address] [place] [address] Radiation Oncologist Radiation Oncology 05/05/19 Molina Charles MD [address] [facility] [address] [place] [address] Referring Physician Transplant Hepatology 12/15/20 Karuna Maria, OT Occupational Therapist Occupational Therapy 09/20/22 Renu Treviño NP [address] [facility] [address] [place] [address] Nurse Practitioner Radiation Oncology 11/08/22 Eladio Mcrae MD [address] [place] [address] Referring Physician Obstetrics and Gynecology 11/15/22 Marcy Schroeder, RN [address] [place] [address] Retail Stock Clerk 04/27/24 Chelsea Barker, machine tailerRetail Stock Clerk 11/13/24
--- OUTSIDE RECORDS SUMMARY | 2024-12-15 12:34 | XMS_ITS | Encounter Summary ---
Author Organization [facility] Healthcare Address [address] [place] [address] Care Team Providers Care Information Management Manager Name Role Phone Maddy Romano MD Primary Care Provider Astrid Haq NP Unavailable Manas Ibarra MD Unavailable Zion Barton MD Unavailable Molina Charles MD Unavailable [phone] Inés Lemus RN Unavailable [phone] Karuna Maria OT Unavailable Unavaila Renu Paul NP Unavailable [phone] Eladio Mcrae MD Unavailable [phone] Marcy Schroeder RN Unavailable [phone] Briana Poe RN Unavailable [phone] Marina Le RN Unavailable [phone] Chelsea Barker RN Unavailable Unavail able Reason for Visit * Reason Onset Date Comments Ready to schedule 04/25/2022 Encounter Details Date Type Department Care Team (Late st Contact Info) Description 04/25/2022 Telephone [facility] Specialty Services [address] [place] [address] Miscellaneous, Not In File Ready to schedule Social History Tobacco Use Types Packs/Day Years Used Date Smoking Tobacco: Former Cigarettes 0.5 51 1 2020 Smokeless Tobacco: Never AUDIT-C Answer Date [...] on file Legal Sex Female 8:22 AM 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 Gender Identity Female 11/15/2021 2:30 AM [...] COVID: Suspected 09/24/2024 09/24/2024 09/24/2024 3:13 PM 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 OPERATOR documented as of this encounter Care Teams Information Management Manager Relationship Specialty Start Date End Date Maddy Romano MD [address] [place] [address] PCP - General 09/28/16 Astrid Haq NP [address] [place] [address] Nurse Practitioner Radiation Oncology 11/05/18 11/07/22 Manas Ibarra MD [address] [place] [address] Referring Physician Thoracic Surgery 11/05/18 Zion Barton MD [address] [place] [address] Radiation Oncologist Radiation Oncology 05/05/19 Molina Charles MD [address] [facility] [address] [place] [address] Referring Physician Transplant Hepatology 12/15/20 nIés Lemus, RN [address] [facility] [address] [place] [address] Financial Associate 10/31/21 5 Karuna Maria, OT Occupational Therapist Occupational Therapy 09/20/22 Renu Treviño NP [address] [facility] [address] [place] [address] Nurse Practitioner Radiation Oncology 11/08/22 Eladio Mcrae MD [address] [place] [address] Referring Physician Obstetrics and Gynecology 11/15/22 Marcy Schroeder RN [address] [place] [address] Financial Associate 04/27/24 Briana Poe, TYRA [address] [place] [address] [place] [address] [facility] Outpatient Ground Host/Hostess 04/30/24 05/28/24 Marina Le RN [address] [place] [id number] [place] [address] [facility] Outpatient Ground Host/Hostess 10/05/24 10/26/24 Chelsea Barker, neon tube pumperFinancial Associate 11/13/24 documented as of this encounter
--- OUTSIDE RECORDS SUMMARY | 2024-12-15 12:34 | XMS_ITS ---
Author Organization [facility] Address [address] [place] [address] Care Team Providers Care Leather Roller Name Role Phone Maddy Romano MD Primary Care Provider Manas Ibarra MD Unavailable Zion Barton MD Unavailable Molina Charles MD Unavailable [phone] Karuna Maria OT Unavailable Unavaila Renu Paul NP Unavailable [phone] Eladio Mcrae MD Unavailable [phone] Marcy Schroeder RN Unavailable [phone] Chelsea Barker RN Unavailable Unavail able Transplant Episode Kidney Candidate 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
--- OUTSIDE RECORDS SUMMARY | 2024-12-15 12:34 | XMS_ITS | Encounter Summary ---
Author Organization [facility] Healthcare Address [address] [place] [address] Care Team Providers Care Director Strategic Account Management Name Role Phone Maddy Romano MD Primary Care Provider Astrid Haq NP Unavailable Manas Ibarra MD Unavailable Zion Barton MD Unavailable Molina Charles MD Unavailable [phone] Inés Lemus RN Unavailable [phone] Karuna Maria OT Unavailable Unavaila Renu Paul NP Unavailable [phone] Eladio Mcrae MD Unavailable [phone] Marcy Schroeder RN Unavailable [phone] Briana Poe RN Unavailable [phone] Marina Le RN Unavailable Chelsea Barker RN Unavailable Unavail able Reason for Visit * Reason Onset Date Comments Ready to scheduled 04/26/2022 Encounter Details Date Type Department Care Team (Late st Contact Info) Description 04/26/2022 Telephone [facility] Specialty Services [address] [place] [address] Miscellaneous, Not In File Ready to scheduled [...] on file Legal Sex Female 8:22 AM SITE LEASING AGENT Gender Identity Female 11/15/2021 2:30 AM [...] COVID: Suspected 09/24/2024 09/24/2024 09/24/2024 3:13 PM SITE LEASING AGENT documented as of this encounter Care Teams Director Strategic Account Management Relationship Specialty Start Date End Date Maddy Romano MD [address] [place] [address] PCP - General 09/28/16 Astrid Haq NP [address] [place] [address] Nurse Practitioner Radiation Oncology 11/05/18 11/07/22 Manas Ibarra MD [address] [place] [address] Referring Physician Thoracic Surgery 11/05/18 Zion Barton MD [address] [place] [address] Radiation Oncologist Radiation Oncology 05/05/19 Molina Charles MD 1 [facility] [address] [place] [address] Referring Physician Transplant Hepatology 12/15/20 Inés Lemus, RN [address] [facility] [address] [place] [address] Paper Rewinder 10/31/21 5 Karuna Maria, OT Occupational Therapist Occupational Therapy 09/20/22 Renu Treviño NP [address] [facility] [address] [place] [address] Nurse Practitioner Radiation Oncology 11/08/22 Eladio Mcrae MD [address] [place] [address] Referring Physician Obstetrics and Gynecology 11/15/22 Marcy Schroeder RN [address] [place] [address] Paper Rewinder 04/27/24 Briana Poe, TYRA [address] [place] [address] [place] [address] [facility] Outpatient Promotional Demonstrator 04/30/24 05/28/24 Marina Le RN [address] [place] [address] [facility] Outpatient Promotional Demonstrator 10/05/24 10/26/24 Chelsea Barker, farm tractor mechanicPaper Rewinder 11/13/24 documented as of this encounter
--- OUTSIDE RECORDS SUMMARY | 2024-12-15 12:34 | XMS_ITS | Encounter Summary ---
Author Organization [facility] Address [address] [place] [address] Phone Care Team Providers Care Automatic Pad Making Machine Operator Name Role Phone Maddy Romano MD Primary Care Provider Astrid Haq NP Unavailable Manas Ibarra MD Unavailable Zion Barton MD Unavailable Molina Charles MD Unavailable [phone] Inés Lemus RN Unavailable [phone] Karuna Maria OT Unavailable Unavaila Renu Paul NP Unavailable Eladio Mcrae MD Unavailable Marcy Schroeder RN Unavailable [phone] Briana Poe RN Unavailable Marina Le RN [...] on file Legal Sex Female 8:22 AM [place] MACHINE OPERATOR Gender Identity Female 11/15/2021 2:30 [...] COVID: Suspected 09/24/2024 09/24/2024 09/24/2024 3:13 PM [place] MACHINE OPERATOR documented as of this encounter Care Teams Automatic Pad Making Machine Operator Relationship Specialty Start Date End Date Maddy Romano MD [address] [place] [address] PCP - General 09/28/16 Astrid Haq NP [address] [place] [address] Nurse Practitioner Radiation Oncology 11/05/18 11/07/22 Manas Ibarra MD [address] [place] [address] Referring Physician Thoracic Surgery 11/05/18 Zion Barton MD [address] [place] [address] Radiation Oncologist Radiation Oncology 05/05/19 Molina Charles MD 1 [facility] [address] [place] [address] Referring Physician Transplant Hepatology 12/15/20 Inés Lemus, TYRA [address] [facility] [address] [place] [address] Dinking Machine Operator 10/31/21 5 Karuna Maria OT Occupational Therapist Occupational Therapy 09/20/22 Renu Treviño, NAGI [address] [facility] [address] [place] [address] Nurse Practitioner Radiation Oncology 11/08/22 Eladio Mcrae MD [address] [place], [place] [address] Referring Physician Obstetrics and Gynecology 11/15/22 Marcy Schroeder, RN [address] [place] [address] Dinking Machine Operator 04/27/24 Briana Poe, TYRA [address] [facility] [address] [place] [address] [facility] Outpatient Mechanic Welder Truck Driver 04/30/24 05/28/24 Marina Le RN [address] [facility] [address] [place] [address] [facility] Outpatient Mechanic Welder Truck Driver 10/05/24 10/26/24 Chelsea Barker, product management internDinking Machine Operator 11/13/24 documented as of this encounter
[2024-12-15 12:36] LABS: Kit Draw Collected
== END 2024-12-15 12:13 | disposition home or self-care (01) ==
LOC: CHSLAB 12:18
PROVIDERS: PCP Internal Medicine; Visit Provider Transplant Surgery
DX: N18.6 End stage renal disease (principal)
CPT/HCPCS: 36415

== ENCOUNTER 2024-12-15 12:21 | Outpatient (CLI) | payer MEDICARE, SELFPAY ==
[2024-12-15 13:16] LABS: Alanine Aminotransferase 26 U/L (14-59); Albumin Level 2.8 g/dL (3.4-5.0); Alkaline Phosphatase 99 U/L (46-116); Anion Gap 6 mmol/L (4-12); Aspartate Amino Transferase 34 U/L (15-37); Bilirubin,Total 2.1 mg/dL (0.00-1.00); Blood Urea Nitrogen 15 mg/dL (7-18); Calcium 8.9 mg/dL (8.5-10.1); Carbon Dioxide 30 mmol/L (21-32); Chloride 104 mmol/L (98-108); Estimated Glomerular Filt Rate 28; Glucose 215 mg/dL (70-99); Osmolality Calculated 296 mOsm/kg (285-295); Potassium 3.5 mmol/L (3.5-5.1); Sodium 140 mmol/L (136-145); Total Protein 5.6 g/dL (6.4-8.2)
== END 2024-12-15 12:22 | disposition home or self-care (01) ==
LOC: CHSLAB 12:22
PROVIDERS: PCP Internal Medicine; Visit Provider Internal Medicine Gastroenterology
DX: K75.81 Nonalcoholic steatohepatitis (NASH) (principal); K74.60 Unspecified cirrhosis of liver
CPT/HCPCS: 36415; 80053

== ENCOUNTER 2025-01-20 09:59 | Outpatient (CLI) | payer OTHER, SELFPAY ==
[2025-01-20 10:46] LABS: Kit Draw Collected
--- OUTSIDE RECORDS SUMMARY | 2025-01-20 11:33 | XMS_ITS | Encounter Summary ---
Author Organization [facility] Address [address] [place] [address] Phone Care Team Providers Care Communication Spec Name Role Phone Maddy Romano MD Primary Care Provider Astrid Haq NP Unavailable Manas Ibarra MD Unavailable Zion Barton MD Unavailable [phone] Molina Charles MD Unavailable [phone] Inés Lemus RN Unavailable [phone] Karuna Maria OT Unavailable Unavaila Renu Paul NP Unavailable [phone] Eladio Mcrae MD Unavailable Marcy Schroeder RN Unavailable [phone] Briana Poe RN Unavailable Marina Le RN [...] on file Legal Sex Female 8:22 AM TREE THINNER Gender Identity Female 11/15/2021 2:30 AM CDT [...] COVID: Suspected 09/24/2024 09/24/2024 09/24/2024 3:13 PM TREE THINNER documented as of this encounter Care Teams Communication Spec Relationship Specialty Start Date End Date Maddy Romano MD [address] [place] [address] PCP - General 09/28/16 Astrid Haq NP [address] [place], [place] [address] Nurse Practitioner Radiation Oncology 11/05/18 11/07/22 Manas Ibarra MD [address] [place], [place] [address] Referring Physician Thoracic Surgery 11/05/18 Zion Barton MD [address] [place], [place] [address] Radiation Oncologist Radiation Oncology 05/05/19 Molina Charles MD 1 [facility] [address] [place] [address] Referring Physician Transplant Hepatology 12/15/20 Inés Lemus, TYRA [address] [facility] [address] [place] [address] Human Resources Leader 10/31/21 5 Karuna Maria OT Occupational Therapist Occupational Therapy 09/20/22 Renu Treviño NP [address] [facility] [address] [place] [address] Nurse Practitioner Radiation Oncology 11/08/22 Eladio Mcrae MD [address] [place] [address] Referring Physician Obstetrics and Gynecology 11/15/22 Marcy Schroeder, RN [address] [place] [address] Human Resources Leader 04/27/24 Briana Poe TYRA [address] [facility] [address] [place] [address] [facility]OP Outpatient Sr Vice President 04/30/24 05/28/24 Marina Le RN [address] [facility] [address] [place] [address] [facility] Outpatient Sr Vice President 10/05/24 10/26/24 Chelsea Barker, kitchen chefHuman Resources Leader 11/13/24 documented as of this encounter
--- OUTSIDE RECORDS SUMMARY | 2025-01-20 11:33 | XMS_ITS | Referral Summary ---
Author Organization [facility] Address [address] [place] [address] Care Team Providers Care Gate Person Name Role Phone Maddy Romano MD Primary Care Provider Manas Ibarra MD Unavailable Zion Barton MD Unavailable Molina Charles MD Unavailable [phone] Karuna Maria OT Unavailable Unavaila Renu Paul NP Unavailable [phone] Eladio Mcrae MD Unavailable [phone] Marcy Schroeder RN Unavailable [phone] Chelsea Barker RN Unavailable Unavail able Encounters Date Type Department Care Team Description 01/12/20 25 Telephone [facility] Transplant Liver [address] [facility] [address] Mailstop [phone] [place] [address] Chelsea Barker, TYRA 01/12/20 25 3:25 PM CDT Lab [facility] ([facility]) [address] [place] [phone] Cirrhosis of liver without ascites, unspecified hepatic cirrhosis type (HCC) 01/09/20 Telephone [facility] Transplant Liver [address] [facility] 3401 Mailop [phone] [place] [address] Chelsea Barker, TYRA 12/19/19 Telephone [facility] Endocrinology Metabolism and Lipid [address] [facility] 13th [place] [address] [place] [phone] Katie Yates RN 12/18/19 Telephone [facility] Transplant Liver [address] [facility] [address] [place] [address] [place] [address] Chelsea Barker, TYRA 12/17/19 Results Follow-Up [facility] Transplant Liver [address] [facility] [address] [place] [address] [place] [address] Chelsea Barker RN Comprehensive metabolic panel 12/16/19 10:00 AM CDT - 12/16/19 11:59 PM T [address] [address] ESRD (end stage renal diseas e) (HCC) Discharge Disposition: Discharge to home or self care 12/16/19 Telephone [facility] Transplant Liver [address] [facility] [address] [place] [address]92[address]0 [place] [address] Chelsea Barker, TYRA 12/15/19 Telephone [facility] Transplant Liver [address] [facility] [address] [place], [place] [address]op -[phone] [place] [address] Chelsea Barker, TYRA 12/15/19 Results Follow-Up [facility] Transplant Liver [address] [facility] [address] Mailstop [phone] [place] [address] Chelsea Barker, RN EGD 12/15/19 Telephone [facility] Transplant Liver [address] [facility] [address] Mail[address] [phone] [place] [address] Chelsea Barker RN 12/15/19 9:15 AM CDT - 12/15/19 9:45 AM CDT Surgery [facility] Endoscopy [address] [place] [address] Mercy Adler MD PhD ESOPHAGOGASTRODUODENOSCOPY 12/15/19 9:11 AM CDT Anesthesia Event [facility] Endoscopy [address] [place], [place] [address] Ezequiel Waldron MD 12/15/19 8:08 AM CDT - 12/15/19 10:14 AM CDT Hospital Encounter [facility] Endoscopy [address] [place], [place] [address] Mercy Adler MD PhD Discharge Disposition: Discharge to home or self care 12/09/19 Telephone 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 11/26/19 9:00 AM CDT Office Visit [facility] Gasteroenterology [address] [facility] 12th [place] [address] [place] [address] Taiwo Vázquez MD Portosystemic encephalopathy (HCC) (Primary [...] index (BMI) of 40.0 to 44.9 in adult; Hepatic encephalopathy (HCC) 11/25/19 Telephone [facility] [address] [place] [address] Tonya Malcolm, TYRA GI Preprocedure 11/24/19 Orders Only [facility] 1 [facility] 1st [place] [phone] Timothy Pardo MD ESRD (end stage renal disease) (HCC) 11/20/19 2:00 PM CDT - 11/20/19 11:59 PM CDT Hospital Encounter [facility] [address] [place] [address] Discharge Disposition: Discharge to home or self care 11/12/[address] [facility] Speech Therapy [address] [place] [address] 11/12/19 11:[address] [facility] Speech Therapy [address] [place] [address] Oropharyngeal dysphagia (Primary Dx) 11/12/19 10:53 AM CDT - 11/12/19 11:59 PM CDT Hospital Encounter [facility] Radiology [address] [place] [address] Dysphagia, oropharyngeal Discharge Disposition: Discharge to home or self care 10/28/19 SHOP/CHAP Subsequent [facility] OP CASE MANAGEMENT [address] [place] [address] Marina Le, RN 10/21/19 25 SHOP/CHAP Subsequent [facility] OP CASE MANAGEMENT [address] [place] [address] Marina Le, RN 10/21/19 25 Documentation [facility] Transplant Liver [address] [facility] [address] Mailstop [phone] [place] [address] Celsa Vargas 10/21/19 25 Telephone [facility] Transplant Liver [address] [facility] [address] Mailstop [phone] [place] [address] Inés Lemus RN from Last 3 Months Allergies Active Allergy Reactions Criticality Noted Date Comments Moxifloxacin Itching Low 10/15/2019 Sulfa (Sulfonamide Antibiotics) Hives Medium Medications acetaminophen (TYLENOL) 325 mg tabletIndications :Pain Take 2 tablets (650 mg total) by mouth every 8 (eight) hours 023 Active ondansetron (ZOFRAN) 4 mg tablet Take 1 tablet (4 mg total) by mouth every 8 (eight) hours as needed for nausea or vomiting 30 tablet 1 Active thiamine (VITAMIN B-1) 100 mg tablet Take 1 tablet (100 mg total) by mouth daily Active pantoprazole DR (PROTONIX) 40 mg EC tablet Take 1 tablet (40 mg total) by mouth daily 30 tablet 2024 Active blood-glucose sensor (Dexcom G6 Sensor) deviceIndications :Type 2 diabetes mellitus with stage 3a chronic kidney disease, unspecified whether rat exterminator insulin use (HCC) Will use 1 sensor every 10 days. 1 box = 3 sensors. 3 each Active blood-glucose transmitter (Dexcom G6 Transmitter) deviceIndications :Type 2 diabetes mellitus without complication, unspecified whether assisted insulin use (HCC) Will use 1 transmitter every 90 days 1 each Active pen needle, diabetic (BD Ultra-Fine Mini Pen Needle) 31 gauge x 3/16 needleIndications :Type 2 diabetes mellitus without complication, unspecified whether assisted insulin use (HCC) USE TO INJECT INSULIN SIX TIMES PER DAY 200 each Active pen needle, diabetic (Pen Needle) 32 [...] for Sliding Scale Insulin Instructions. 15 mL Active blood-glucose meter,continuous (Dexcom G7 [employer] Marketing) misc Use as directed. 1 each Active glucagon 1 mg kit Inject 1 mg into the muscle once as directed by provider for low blood sugar. 1 kit Active spironolactone (ALDACTONE) 100 mg tablet Take 1 tablet (100 mg total) by mouth daily 30 tablet 025 2025 Active atorvastatin (LIPITOR) 40 mg tablet Take 1 tablet (40 mg total) by mouth daily 30 tablet Active Additional Information Patient not taking.Reported on 10/14/2024 bumetanide (BUMEX) 1 mg tabletIndications :Stage 3b chronic kidney disease (HCC) Take 2 tablets (2 mg total) by mouth daily 270 tablet Active tirzepatide (Mounjaro) 2.5 mg/0.5 mL pen injector injection Inject 0.5 mL (2.5 mg total) under the skin once a week 2 mL Active blood-glucose sensor (NOWBOXcom G7 Sensor) device Use as directed. Change sensor every 10 days. 3 each Active lactulose solution 10 gram/15mLIndicati ons:Portosystemic encephalopathy (HCC) Take 30 mL (20 g total) by mouth 3 (three) times a day 3785 mL 3 025 2024 Active fluconazole (DIFLUCAN) 100 mg tablet Take 1 tablet (100 mg total) by mouth daily 025 Active Xifaxan 550 mg tabletIndications :Hepatic encephalopathy (HCC),Cirrhosis of liver without ascites, unspecified hepatic cirrhosis type (HCC) TAKE 1 TABLET(550 MG) BY MOUTH TWICE DAILY 60 tablet 025 Active insulin glargine (LANTUS) 100 unit/mL (3 mL) pen for injection Inject 44 Units under the skin nightly 45 mL 3 025 Active rifAXIMin (Xifaxan) 550 mg tabletIndications :Hepatic encephalopathy (HCC),Cirrhosis of liver without ascites, unspecified hepatic cirrhosis type (HCC) Take 1 tablet (550 mg total) by mouth 2 (two) times a day 60 tablet 024 2024 Discontinued Active Problems Problem Noted [...] 10/10/2022 Assessment & Plan (10/12/2022 12:20 PM STUDENT ADMISSIONS CLERK): Episode of atrial flutter overnight with RVR up to 140s. Patient asymptomatic, normotensive. IV metoprolol X2 given to achieve rate control. Hod7ic0 vasc score of 3. TTE from 09/03 without valvular abnormalities. No new episodes today. Lytes within normal limits. 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 Lovenox is not ideal given her platelet count less than 100. Her INR is too high to consider warfarin. Anemia 10/05/2022 Assessment & Plan (10/11/2022 12:28 PM STUDENT ADMISSIONS CLERK): - Hgb has down trended from 8 [...] 10/05/2022 Assessment & Plan (10/11/2022 12:45 PM STUDENT ADMISSIONS CLERK): -Continue home dose of metoprolol 25mg BID Hepatic encephalopathy 07/31/2022 Assessment & Plan (03/06/2023 5:49 PM CDT): Good control on current medical management. No changes indicated. Assessment & Plan (08/03/2022 1:05 PM STUDENT ADMISSIONS CLERK): Pt with hx of LYONS cirrhosis presenting with progressively worsening mental status over past several weeks. On initial examination patient was AAOx1, on subsequent exam she is now AAOx2 with appropriate responses. NH3 75. Unfortunately no safe area for bedside diagnostic paracentesis. Slurred speech and concerns for swallowing. HVAC SALES ENGINEER completed swallow study and normal. Head CT: No acute intracranial abnormality. -Awaiting Liver MRI -Increased Lactulose to 4x daily (only 1 stool on 08/02) - Rifaximin and Lactulose (goal 3-5 bowel movements) - Fall precautions. - PT/OT: Home with assistance. Assessment & Plan (08/02/2022 2:34 PM STUDENT ADMISSIONS CLERK): Pt with hx of LYONS cirrhosis presenting with progressively worsening mental status over past several weeks. On initial examination patient was AAOx1, on subsequent exam she is now AAOx2 with appropriate responses. NH3 75. Unfortunately no safe area for bedside diagnostic paracentesis. Slurred speech and concerns for swallowing. HVAC SALES ENGINEER completed swallow study and normal. Head CT: No acute intracranial abnormality. - Rifaximin and Lactulose (goal 3-5 bowel movements) - Fall precautions. - PT/OT: Home with assistance. - HVAC SALES ENGINEER completed bedside swallow and Normal Assessment & Plan (08/01/2022 3:28 PM STUDENT ADMISSIONS CLERK): Pt with hx of LYONS cirrhosis presenting [...] concerns for swallowing. - Fall precautions. - HVAC SALES ENGINEER/PT/OT Consults. Assessment & Plan (08/01/2022 4:16 AM STUDENT ADMISSIONS CLERK): Pt with hx of LYONS cirrhosis presenting [...] mellitus Assessment & Plan (10/12/2022 2:58 PM STUDENT ADMISSIONS CLERK): Previously on dose reduced insulin regimen at [facility] 20u lantus, 7u tid lispro + ssi. - Her blood sugars were initially on the lower side (90-100) in setting of poor po intake and TR. Continue SSI only for now and will uptitrate as needed. - Continue Lantus 10u/daily + lispro 4TID Assessment & Plan (08/03/2022 1:09 PM STUDENT ADMISSIONS CLERK): Home regimen of toujeo 42 units + SSI. -Lantus, Lispro TID AC and SSI -No Juice Diet -Consistent Carb+ 2gm NA diet. -CTM BGL Assessment & Plan (08/02/2022 2:38 PM STUDENT ADMISSIONS CLERK): Home regimen of toujeo 42 units + SSI. -Lantus, Lispro TID AC and SSI -No Juice Diet -Consistent Carb+ 2gm NA diet. -CTM BGL Assessment & Plan (08/01/2022 3:26 PM STUDENT ADMISSIONS CLERK): Home regimen of toujeo 42 units + SSI. Given TR and decreased PO intake, insulin regimen reduced to Lantus 20units. - Continue on 2g Na + DM2 diet - CTM BGL Assessment & Plan (08/01/2022 4:17 AM STUDENT ADMISSIONS CLERK): Home regimen of toujeo 42 units + [...] (10/22/2022): Added automatically from request for surgery [id number] Volume overload 10/06/2022 05/29/2024 Assessment & Plan (10/10/2022 1:09 PM STUDENT ADMISSIONS CLERK): In the setting of LYONS cirrhosis. Diuretics [...] (08/22/2022): Added automatically from request for surgery [id number] Portal vein thrombosis 08/01/202208/22 Assessment & Plan (08/03/2022 1:09 PM STUDENT ADMISSIONS CLERK): -Apixaban 2.5mg BID Assessment & Plan (08/02/2022 2:39 PM STUDENT ADMISSIONS CLERK): -Apixaban 2.5mg BID Assessment & Plan (08/01/2022 3:27 PM STUDENT ADMISSIONS CLERK): -Apixaban 2.5mg BID Assessment & Plan (08/01/2022 4:17 AM STUDENT ADMISSIONS CLERK): Continue home apixaban LYONS (nonalcoholic steatohepatitis) 11/02/2021 07/15/2024 Abnormal mammogram of right breast 11/02/2020 08/22/2022 Preop cardiovascular exam 09/23/2019 Overview (09/23/2019): Added automatically from request for surgery [id number] Colon cancer screening 04/21/201908/22 Overview (04/21/2019): Added automatically from request for surgery [id number] Esophageal varices without bleeding (CMS/HCC) 04/21/20 19 08/22/2022 Overview (04/21/2019): Added automatically from request for surgery [id number] Steatosis of liver 05/20/2017 meterman current use of ant icoagulant therapy 07/26/2016 [...] Influenza, Trivalent, Preser vative Free, Intramuscular 05/29/2013 GTX Messaging (J&J) SARS-CoV-2 Vaccination 10/17/2020 Pneumococcal Conjugate PCV 13 05/26/2015 Pneumococcal Polysaccharide PPV23 03/24/2014 RSV Vaccine, Pref, Recombina nt, Subunit, Adjuvanted, PF, IM (Arexvy) 12/18/2023 Tdap 03/24/2014 ZOSTER Recombinant 02/17/2020,05/29/2019 Social History Tobacco Use Types Packs/Day Years Used Date Smoking Tobacco: Former Cigarettes 0.5 51 1 970 - 2020 Smokeless Tobacco: Never Tobacco Cessation:Counseling Given: Not Answered [facility] Utilities Answer Date Recorded In the past 12 months has th e [employer], gas, oil, or water company threatened to [...] attend chur ch or restoration services? Never 10/05/2024 Do you belong to any clubs o r organizations such as yarsanism groups, unions, fraternal or athletic groups, or [...] on file Legal Sex Female 8:22 AM STUDENT ADMISSIONS CLERK Gender Identity Female 11/15/2021 2:30 AM [...] 8:40 AM CDT Height 170.2 cm (5' 7) 12/14/2024 8:40 AM CDT Body Mass Index 41.35 12/14/2024 8:40 AM CDT Plan of Treatment Scheduled Procedures Name Priority Associated Diagnoses Date/Ti me COLONOSCOPY Routine adult health maintenance LYONS (nonalcoholic steatohepatitis) Procedures Procedure Name Priority Date/Time Associated Diagnosis Comments EGFR Routine 01/11/2025 1:08 PM CDT Cirrhosis of liver without ascites, unspecified hepatic cirrhosis type (HCC) COMPREHENSIVE METABOLIC PANEL Routine 1:08 PM CDT Cirrhosis of liver without ascites, unspecified hepatic cirrhosis type (HCC) PROTIME-INR Routine 01/11/2025 1:08 PM CDT Cirrhosis of liver without ascites, unspecified hepatic cirrhosis type (HCC) HLA ANTIBODY SCREEN BY PRA O R SAB PER SCHEDULE (CLASS I AND CLASS II) Routine 12/15/2024 10:00 AM CDT ESRD (end stage renal disease) (HCC) COMPREHENSIVE METABOLIC PANEL Routine 12/15/2024 ESOPHAGOGASTRODUODENOSCOPY 12/14 9:11 AM CDT Esophageal varices without bleeding, unspecified esophageal varices type (HCC) Cirrhosis of liver without ascites, unspecified hepatic cirrhosis type (HCC) EGD 12/14/2024 8:57 AM CDT POCT GLUCOSE DEVICE Routine 12/14/2024 8:56 AM CDT EGFR Routine 12/04/2024 1:50 PM CDT 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 DIFFERENTIAL AUTO Routine 12/04/2024 1:50 PM CDT 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 COMPREHENSIVE METABOLIC PANEL Routine 1:50 PM CDT 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 PROTIME-INR Routine 12/04/2024 1:50 PM CDT 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 CBC WITH AUTO DIFFERENTIAL Routine 12/04 1:50 PM CDT 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 BILIRUBIN, DIRECT Routine 12/04/2024 1:50 PM CDT 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 EGFR Routine 11/25/2024 9:40 AM CDT 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 DIFFERENTIAL AUTO Routine 11/25/2024 9:40 AM CDT 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 HEMOGLOBIN A1C Routine 11/25/2024 9:40 AM CDT Type 2 diabetes mellitus with stage 3a chronic kidney disease, with long-term current use of insulin (HCC) DKPPV-5-[id number], TUMOR MARKER Routine 11/25/2024 9:40 AM CDT 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 PROTIME-INR Routine 11/25/2024 9:40 AM CDT 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 BILIRUBIN, DIRECT Routine 11/25/2024 9:40 AM CDT 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 COMPREHENSIVE METABOLIC PANEL Routine 9:40 AM CDT 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 CBC WITH AUTO DIFFERENTIAL Routine 11/25 9:40 AM CDT 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 HLA ANTIBODY SCREEN - SAB (CLASS [...] Routine) 11/11/2024 11:46 AM CDT Dysphagia, oropharyngeal PAP AND HIGH RISK HPV, REFLE X TO GENOTYPING Routine 04/28/2024 10:41 AM CDT SCREENING MAMMOGRAM BILATERA L W PAL IP Routine 04/27/2024 1:55 PM CDT LIPID PANEL Routine 04/22/2024 12:58 AM CDT HEPATITIS C ANTIBODY Routine 06/16/2023 6:09 AM STUDENT ADMISSIONS CLERK COLONOSCOPY 05/30/2022 9:28 AM CDT ALBUMIN CREATININE RATIO, URINE Routine 03/01/2021 2:45 PM CDT Type 2 diabetes mellitus without complication, unspecified whether rat exterminator insulin use (HCC) from Last 3 Months or Most Recently Relevant to Health Maintenance Results * (ABNORMAL) eGFR (01/11/2025 1:08 PM CDT) eGFR 37(L) >=60 mL/min/1. 73 m2 Comment: Interpretive Data [...] interpretive data was last reviewed 2021. Blood 01/11/2025 1:08 PM CDT 01/11/2025 1:51 PM CDT us Molina Charles MD LAB BLOOD ORDERABLES Final Result [facility] [place] [address] * (ABNORMAL) Protime-INR (01/11/2025 1:08 PM CDT) Pathologist [facility] PT 15.8(H) 9.7 - 13.0 sec INR 1.45(H) 0.90 - 1.20 [facility] Comment: Interpretive data Oral anticoagulant therapeutic ranges: Venous thromboembolism prophylaxis or treatment: 2.0-3.0 CARDIOLOGY Standard range: 2.0-3.0 High-intensity range: 2.5-3.5 Refer to indication-specific guidelines for appropriate target ranges for prosthetic heart valve replacement. Current interpretive data was last revised on 2019. Blood 01/11/2025 1:08 PM CDT 01/11/2025 1:45 PM CDT Molina Charles MD LAB BLOOD ORDERABLES Final Result [facility] [place] [address] * (ABNORMAL) Comprehensive metabolic panel (01/11/2025 1:08 PM CDT) [facility] Sodium 141 135 - 145 mmol/L Potassium, pl 3.6 3.3 - 4.9 mmol/L [facility] Chloride 105 97 - 110 mmol/L [facility] CO2 29 22 - 32 mmol/L [facility] Anion gap 7 2 - 15 mmol/L [facility] BUN 17 6 - 25 mg/dL [facility] Creatinine 1.56(H) 0.60 - 1.10 mg/dL [facility] Glucose 150 70 - 199 mg/dL [facility] Comment: Interpretive Data Fasting [...] interpretive data was last revised 2022. Calcium 8.7 8.5 - 10.3 mg/dL [facility] Bilirubin, total 1.9(H) 0.1 - 1.2 mg/dL [facility] Protein, pl 6.4(L) 6.5 - 8.5 g/dL [facility] Albumin 3.2(L) 3.5 - 5.0 g/dL [facility] Alk phos 97 40 - 130 Units/L [facility] ALT 17 7 - 45 Units/L [facility] AST 32 10 - 45 Units/L [facility] Blood 01/11/2025 1:08 PM CDT 01/11/2025 1:45 PM CDT Molina Charles MD LAB BLOOD ORDERABLES Final Result [facility] Department [place] [address] * HLA Antibody Screen by PRA or SAB per Schedule (Class I and Class II) (12/15/2024 10:00 AM CDT) Blood 12/15/2024 10:0 0 AM CDT Narrative [facility] - STUDENT ADMISSIONS CLERK Sample received in lab and stored. No testing performed at this time. Timothy Pardo MD LAB BLOOD ORDERABL ES Final Result [facility] * (ABNORMAL) Comprehensive metabolic panel (12/15/2024) SCRIBED Sodium 140 136 - 145 mmol/L TXP NO LAB FOUND SCRIBED Potassium 3.5 3.5 - 5.1 mmol/L TXP NO LAB FOUND SCRIBED Chloride 104 98 - 108 mmol/L TXP NO LAB FOUND SCRIBED Carbon Dioxide 30 21 - 32 mmol/L TXP NO LAB FOUND SCRIBED Urea Nitrogen (BUN) 15 7 - 18 mg/dl TXP NO LAB FOUND SCRIBED Creatinine 1.85(A) 0.55 - 1.02 mg/dl TXP NO LAB FOUND SCRIBED Glucose 215(A) 70 - 99 mg/dl TXP NO LAB FOUND SCRIBED Calcium 8.9 8.5 - 10.1 mg/dl TXP NO LAB FOUND SCRIBED Bilirubin 2.1(A) 0 - 1 mg/dl TXP NO LAB FOUND SCRIBED Plasma Protein 5.6(A) 6.4 - 8.2 g/dl TXP NO LAB FOUND SCRIBED Albumin 2.8(A) 3.4 - 5 g/dl TXP NO LAB FOUND SCRIBED Alkaline Phosphatase 99 46 - 116 Units/L TXP NO LAB FOUND SCRIBED Alanine Transaminase (ALT) 26 14 - 59 Units/L TXP NO LAB FOUND SCRIBED Aspartate Transaminase (AST) 34 15 - 37 Units/L TXP NO LAB FOUND Blood 12/15/2024 us Historical Provider LAB BLOOD ORDERABLES Edit ed Result - Final TXP NO LAB FOUND * EGD (12/14/2024 8:57 AM CDT) Anatomical Region Laterality Modality Other Narrative Procedure Note Mercy Adler MD PhD - 12/14/2024 8:57 AM CDT ENDOSCOPY LAB Patient Name: Aleah Levine Procedure Date: 12/14/2024 8:57 AM Date of : 1960 Admit Type: Outpatient Age: 63 Gender: Female Attending MD: Mercy Adler M.D. Room: [facility] ENDOSCOPY ROOM 03 Note Status: Finalized [...] and oxygen saturations were monitored continuously. The [id number] was introduced through the mouth, and advanced [...] - Repeat upper endoscopy in 2 years [facility]. - Return to liver transplant [...] was last revised on 2014. POC Performer [id number] [facility] POC Device Number [id number] [facility] Blood 12/14/2024 8:56 AM CDT 12/14/2024 8:56 AM CDT us Mercy Adler MD PhD LAB POCT ORDER RAVEN - DEVICE Final Result [facility] [id number] [facility] Department [place] [address] * (ABNORMAL) eGFR (12/04/2024 1:50 PM CDT) eGFR 39(L) >=60 mL/min/1. 73 m2 Comment: [...] MD LAB BLOOD ORDERABLES Fin al Result [facility] [place] [address] * (ABNORMAL) Differential, auto (12/04/2024 1:50 PM CDT) Neutrophil abs 2.07 1.50 - 6.50 K/cumm Imm gran abs 0.01 0.00 - 0.10 K/cumm [facility] Lymphocyte abs 0.76(L) 0.80 - 3.30 K/cumm [facility] Monocyte abs 0.28 0.20 - 0.80 K/cumm [facility] Eosinophil abs 0.53(H) 0.00 - 0.50 K/cumm [facility] Basophil abs 0.02 0.00 - 0.10 K/cumm [facility] Neutrophil pct 56.5 % [facility] Comment: Interpretive Data Percent cell count reference ranges are not reported, since discordance with absolute values may lead to misinterpretation of CBC data. Current Interpretive Data was last revised on 2017. Imm gran pct 0.3 % [facility] Comment: Interpretive Data Percent cell count reference ranges are not reported, since discordance with absolute values may lead to misinterpretation of CBC data. Current Interpretive Data was last revised on 2017. Lymphocyte pct 20.7 % [facility] Comment: Interpretive Data Percent cell count reference ranges are not reported, since discordance with absolute values may lead to misinterpretation of CBC data. Current Interpretive Data was last revised on 2017. Monocyte pct 7.6 % [facility] Comment: Interpretive Data Percent cell count reference ranges are not reported, since discordance with absolute values may lead to misinterpretation of CBC data. Current Interpretive Data was last revised on 2017. Eosinophil pct 14.4 % [facility] Comment: Interpretive Data Percent cell count reference ranges are not reported, since discordance with absolute values may lead to misinterpretation of CBC data. Current Interpretive Data was last revised on 2017. Basophil pct 0.5 % [facility] Comment: Interpretive Data Percent cell count reference ranges are not reported, since discordance with absolute values may lead to misinterpretation of CBC data. Current Interpretive Data was last revised on 2017. Blood 12/04/2024 1:50 PM CDT 12/04/2024 3:08 PM CDT us Taiwo Vázquez MD LAB BLOOD ORDERABLES Fin al Result [facility] Department [place] [address] * (ABNORMAL) CBC with auto differential (12/04/2024 1:50 PM CDT) WBC 3.67(L) 3.80 - 9.90 K/cumm Hgb 10.4(L) 11.9 - 15.5 g/dL [facility] Hct 30.5(L) 35.6 - 45.5 % [facility] Plt 53(L) 150 - 400 K/cumm [facility] MPV 11.9 9.1 - 12.3 fL [facility] RBC 3.29(L) 3.90 - 5.20 M/cumm [facility] MCV 92.7 81.3 - 96.4 fL [facility] MCH 31.6 27.1 - 33.3 pg [facility] MCHC 34.1 32.3 - 35.7 g/dL [facility] RDW CV 14.6 11.1 - 14.9 % [facility] RDW SD 49.7(H) 35.7 - 48.1 fL [facility] NRBC abs 0.00 0.00 - 0.01 K/cumm [facility] Blood 12/04/2024 1:50 PM CDT 12/04/2024 3:08 PM CDT Taiwo Vázquez MD LAB BLOOD ORDERABLES Fin al Result Performing Organization Address [facility] de Phone Number [facility] [place] [address] * (ABNORMAL) Protime-INR (12/04/2024 1:50 PM CDT) PT 15.6(H) 9.7 - 13.0 sec INR 1.43(H) 0.90 - 1.20 [facility] Comment: Interpretive data Oral [...] ORDERABLES Fin al Result Performing Organization Address [facility] de Phone Number [facility] Department [place] [address] * (ABNORMAL) Bilirubin, direct (12/04/2024 1:50 PM CDT) Bilirubin, direct 0.8(H) 0.1 - 0.3 mg/dL Blood 12/04/2024 1:50 PM CDT 12/04/2024 3:08 PM CDT Taiwo Vázquez MD LAB BLOOD ORDERABLES Fin al Result Performing Organization Address [facility] Co de Phone Number [facility] Department [place] [address] * (ABNORMAL) Comprehensive metabolic panel (12/04/2024 1:50 PM CDT) Sodium 145 135 - 145 mmol/L Potassium, pl 3.5 3.3 - 4.9 mmol/L [facility] Chloride 108 97 - 110 mmol/L [facility] CO2 33(H) 22 - 32 mmol/L [facility] Anion gap 4 2 - 15 mmol/L [facility] BUN 16 6 - 25 mg/dL [facility] Creatinine 1.49(H) 0.60 - 1.10 mg/dL [facility] Glucose 139 70 - 199 mg/dL [facility] Comment: Interpretive Data Fasting [...] 2022. Calcium 8.9 8.5 - 10.3 mg/dL [facility] Bilirubin, total 1.8(H) 0.1 - 1.2 mg/dL [facility] Protein, pl 6.0(L) 6.5 - 8.5 g/dL [facility] Albumin 3.2(L) 3.5 - 5.0 g/dL [facility] Alk phos 98 40 - 130 Units/L [facility] ALT 17 7 - 45 Units/L [facility] AST 34 10 - 45 Units/L [facility] Blood 12/04/2024 1:50 PM CDT 12/04/2024 3:08 PM CDT us Taiwo Vázquez MD LAB BLOOD ORDERABLES Fin al Result [facility] Department [place] [address] * (ABNORMAL) eGFR (11/25/2024 9:40 AM CDT) [facility] eGFR 48(L) >=60 mL/min/1. 73 m2 Comment: [...] MD LAB BLOOD ORDERABLES Fin al Result [facility] Department [place] [address] * (ABNORMAL) Differential, auto (11/25/2024 9:40 AM CDT) [facility] Neutrophil abs 2.43 1.50 - 6.50 K/cumm Imm gran abs 0.00 0.00 - 0.10 K/cumm [facility] Lymphocyte abs 0.68(L) 0.80 - 3.30 K/cumm [facility] Monocyte abs 0.33 0.20 - 0.80 K/cumm [facility] Eosinophil abs 0.63(H) 0.00 - 0.50 K/cumm [facility] Basophil abs 0.02 0.00 - 0.10 K/cumm [facility] Neutrophil pct 59.4 % [facility] Comment: Interpretive Data Percent cell count reference ranges are not reported, since discordance with absolute values may lead to misinterpretation of CBC data. Current Interpretive Data was last revised on 2017. Imm gran pct 0.0 % [facility] Comment: Interpretive Data Percent cell count reference ranges are not reported, since discordance with absolute values may lead to misinterpretation of CBC data. Current Interpretive Data was last revised on 2017. Lymphocyte pct 16.6 % [facility] Comment: Interpretive Data Percent cell count reference ranges are not reported, since discordance with absolute values may lead to misinterpretation of CBC data. Current Interpretive Data was last revised on 2017. Monocyte pct 8.1 % [facility] Comment: Interpretive Data Percent cell count reference ranges are not reported, since discordance with absolute values may lead to misinterpretation of CBC data. Current Interpretive Data was last revised on 2017. Eosinophil pct 15.4 % [facility] Comment: Interpretive Data Percent cell count reference ranges are not reported, since discordance with absolute values may lead to misinterpretation of CBC data. Current Interpretive Data was last revised on 2017. Basophil pct 0.5 % [facility] Comment: Interpretive Data Percent cell count reference ranges are not reported, since discordance with absolute values may lead to misinterpretation of CBC data. Current Interpretive Data was last revised on 2017. Blood 11/25/2024 9:40 AM CDT 11/25/2024 10:10 AM CDT us Taiwo Vázquez MD LAB BLOOD ORDERABLES Fin al Result [facility] [place] [address] * (ABNORMAL) CBC with auto differential (11/25/2024 9:40 AM CDT) WBC 4.09 3.80 - 9.90 K/cumm Hgb 9.9(L) 11.9 - 15.5 g/dL [facility] Hct 30.5(L) 35.6 - 45.5 % [facility] Plt 52(L) 150 - 400 K/cumm [facility] MPV 11.3 9.1 - 12.3 fL [facility] RBC 3.22(L) 3.90 - 5.20 M/cumm [facility] MCV 94.7 81.3 - 96.4 fL [facility] MCH 30.7 27.1 - 33.3 pg [facility] MCHC 32.5 32.3 - 35.7 g/dL [facility] RDW CV 14.9 11.1 - 14.9 % [facility] RDW SD 51.8(H) 35.7 - 48.1 fL [facility] NRBC abs 0.00 0.00 - 0.01 K/cumm [facility] Blood 11/25/2024 9:40 AM CDT 11/25/2024 10:10 AM CDT us Taiwo Vázquez MD LAB BLOOD ORDERABLES Fin al Result [facility] Department [place] [address] * [id number], Tumor Marker (11/25/2024 9:40 AM CDT) alpha [...] et al. Clin Chem Lab Med 2018;57:783-797 Ktaya House et al. Clin Chem 2014;[id number]. Current interpretive data was last revised 2022. Blood 11/25/2024 9:40 AM CDT 11/25/2024 10:10 AM CDT Taiwo Vázquez MD LAB BLOOD ORDERABLES Fin al Result Performing Organization Address [facility] de Phone Number [facility] [place] [address] * (ABNORMAL) Protime-INR (11/25/2024 9:40 AM CDT) PT 15.7(H) 9.7 - 13.0 sec INR 1.44(H) 0.90 - 1.20 [facility] Comment: Interpretive data Oral anticoagulant therapeutic ranges: Venous thromboembolism prophylaxis or treatment: 2.0-3.0 CARDIOLOGY Standard range: 2.0-3.0 High-intensity range: 2.5-3.5 Refer to indication-specific guidelines for appropriate target ranges for prosthetic heart valve replacement. Current interpretive data was last revised on 2019. Blood 11/25/2024 9:4 0 AM CDT 11/25/2024 10:15 AM CDT Taiwo Vázquez MD LAB BLOOD ORDERABLES Fin al Result Performing Organization Address [facility] de Phone Number [facility] [place] [address] * Hemoglobin A1c (11/25/2024 9:40 AM CDT) Hgb A1C 5.5 4.0 - 5.6 % Estimated Average Glucose 111 mg/dL [facility] Comment: The ADA recommends reporting an estimated Average Glucose (eAG) with all Hemoglobin A1c results using the equation derived from a study of 507 normal and diabetic adults. Minority populations were underrepresented and children were not included. (Diabetes Care 2020; 43(S1): U45-S70). The eAG is not equivalent to a fasting glucose. Blood 11/25/2024 9:40 AM CDT 11/25/2024 10:10 AM CDT Taiwo Vázquez MD LAB BLOOD ORDERABLES Fin al Result Performing Organization Address City/[facility] Co de Phone Number [facility] [place] [address] * (ABNORMAL) Bilirubin, direct (11/25/2024 9:40 AM CDT) Bilirubin, direct 0.9(H) 0.1 - 0.3 mg/dL Blood 11/25/2024 9:40 AM CDT 11/25/2024 10:10 AM CDT Taiwo Vázquez MD LAB BLOOD ORDERABLES Fin al Result Performing Organization Address [facility] de Phone Number [facility] [place] [address] * (ABNORMAL) Comprehensive metabolic panel (11/25/2024 9:40 AM CDT) Pathologist [facility] Sodium 145 135 - 145 mmol/L Potassium, pl 3.4 3.3 - 4.9 mmol/L [facility] Chloride 108 97 - 110 mmol/L [facility] CO2 31 22 - 32 mmol/L [facility] Anion gap 6 2 - 15 mmol/L [facility] BUN 13 6 - 25 mg/dL [facility] Creatinine 1.26(H) 0.60 - 1.10 mg/dL [facility] Glucose 129 70 - 199 mg/dL [facility] Comment: Interpretive Data Fasting [...] MD LAB BLOOD ORDERABLES Fin al Result [facility] [place] [address] * HLA Antibody Screen by PRA or SAB per Schedule (Class I and Class II) (11/19/2024 2:00 PM CDT) Blood 11/19/2024 2:00 PM CDT Narrative HISTOTRAC - STUDENT ADMISSIONS CLERK Sample received in lab. Single Antigen Antibody [...] a method developed and validated by the [facility] HLA laboratory based on an FDA-approved IVD kit ([employer]creen Single-Antigen, [employer], [facility] [place]). All patient serum samples are pretreated with EDTA before the screen to prevent complement interference. Additional serum treatments, such as adsorption and DTT treatment, may be performed as indicated. Interpretive comments: Low risk: MFI [id number]. Moderate risk: MFI [id number]. Increased risk: MFI >/= 5000. The presence [...] antigens to avoid. Testing performed at the [facility] HLA Laboratory, [address], 5th floor, [place], [address]. [facility] # [id number]. Rani Smith, Ph.D., Manager Operations, HLA Laboratory Aurelio Palafox M.D., Ph.D., Riveting Machine Operator Automatic, HLA Laboratory Norma Talamantes, Ph.D., CLIA Riveting Machine Operator Automatic, [facility] Clinical Laboratories Current methodology and interpretive [...] Jenkins M.D. Molina Dsouza MD IMG FLUOROSCOPY [place] OCEDURES Final Result * Pap and High Risk HPV and Genotyping (Cytology Component) (04/28/2024 10:41 AM CDT) Thin prep (Pap test) 04/28/2024 10:41 AM CDT 04/28/2024 1:00 PM CDT Narrative PATHOLOGY [facility] - 05/04/2024 4:21 PM CDT EPIC results best viewed via link to PDF [facility] [place] [address] Note to Patients: This report may contain [...] Gender: F : 1960 (Age: 63) Address: [address] [place], [place] [address] Hospital #: [id number] Service: Medical Location: [place] [address] Patient Type: [facility] Inpatient Taken: 04/28/2024 Received: 04/28/2024 Accessioned: [...] this test have been verified by the [facility] Molecular Infectious Disease laboratory. Correlate with reported cytology results, as applicable. Interpretive data last revised [facility]/05/04/2024 16:21 JEANNIE Worthington(ASCP) Report Electronically Reviewed and [...] clinical information and biopsy results as indicated. [facility] Clinical Laboratory Improvement Amendments (CLIA) mandate that cytologic and histologic results be correlated for laboratory quality improvement coordinator & improvement standards. FOR ALL HIGH-GRADE CASES [...] determined by the Surgical Pathology Department at [facility] as part of an ongoing type disk quality control supervisor program and in compliance with federally mandated [...] determined by the Surgical Pathology Department of [facility]. It has not been cleared or approved by the U. S. Food and Drug Administration. Eladio Carey MD LAB CYTOLOGY ORDERABLES Final Result PATHOLOGY [facility] 3rd Floor [place], [place] [phone] * Screening Mammogram Bilateral W Pal (04/27/2024 1:55 PM CDT) Anatomical Region Laterality Modality Breast Bilateral Mammography Narrative 04/27/2024 1:52 PM CDT Mammogram Technique: Bilateral Digital Breast Tomosynthesis, Bilateral C-view 2D Screening mammogram. Views obtained: bilateral craniocaudal and bilateral mediolateral oblique. Computer Aided Detection was performed. Mammogram Findings: The present examination has been compared to prior imaging studies performed at [facility] on 05/15/2021 and 12/06/2021. There are [...] compared to prior imaging studies performed at [facility] on 05/15/2021 and 12/06/2021. There are [...] on 2018. Triglycerides 43 <=149 mg/dL [facility] Comment: Interpretive Data Ages < or = [...] on 2018. HDL 64 >=40 mg/dL [facility] Comment: Interpretive Data Ages < or [...] 2018. LDL, calculated 47 <=129 mg/dL [facility] Comment: Interpretive Data Ages < or [...] on 2024. Non-HDL Cholesterol 58 mg/dL [facility] Comment: Interpretive Data Ages < or [...] last revised on 2018. Chol/HDL ratio 2 [facility] Blood 04/22/2024 12:5 8 AM CDT 04/22/2024 3:00 AM CDT us John Paul Reddy MD LAB BLOOD ORDERABLES Final Resul t Performing Organization Address City/[facility]/ZIP Co de Phone Number [facility] Department [place] [address] * Hepatitis C antibody Blood (06/16/2023 6:09 AM STUDENT ADMISSIONS CLERK) Hep C Ab Nonreactive Nonreactive [facility] Comment:Antibodies to HCV no t detected. Does NOT exclude the possibility of recent exposure to HCV. Current interpretive data was last revised on 22 Blood 06/16/2023 6:09 AM STUDENT ADMISSIONS CLERK 06/16/2023 6:35 AM STUDENT ADMISSIONS CLERK us Alejandro Frazier MD LAB MICROBIOLOGY - GENERAL ORDERABLES Final Result Performing Organization Address City/[facility] Co de Phone Number [facility] Department [place] [address] * COLONOSCOPY (05/30/2022 9:28 AM CDT) Anatomical Region Laterality Modality Other Narrative Procedure Note Pat Robins MD - 05/30/2022 9:28 AM CDT GI ENDOSCOPY [facility] Patient Name: Aleah Levine Procedure Date: 05/30/2022 9:28 AM Date of : 1960 Admit Type: Outpatient Age: 61 Gender: Female Attending MD: Pat Robins M.D. Room: [facility] ENDOSCOPY ROOM 3 Note Status: Finalized [...] The scope was passed under direct vision.The [facility] [id number] endoscope was introducedthrough the anus and [...] medications. - Repeat colonoscopy in 10 years [facility]. - Return to referring physician in 10 years. Attending Participation: I personally performed the entire procedure. Electronically signed by Pat Robins MD Pat Robins M.D. 05/30/2022 10:31:01 AM . Number of Addenda: 0 Note Initiated On: 05/30/2022 9:28 AM Recognized by the [employer] for promoting quality in endoscopy us Pat Robins MD ENDOSCOPY PROCEDURES Ju l Result * Albumin Creatinine Ratio, Urine (03/01/2021 2:45 PM CDT) Albumin Ur <12.0 mg/L [facility] Comment: Interpretive Data No reference range established. Current interpretive data was last revised 2018. Creatinine Ur 59.5 mg/dL [facility] Comment: Interpretive Data No reference range established. Current interpretive data was last revised 2018. Albumin Creatinine Ratio, Ur <20 1 - 29 mg/g [facility] Urine 03/01/2021 2:45 PM CDT 03/01/2021 3:41 PM CDT us Oly Baekr MD LAB URINE ORDER RAVEN Final Result [facility] [place] [address] from Last 3 Months or Most Recently Relevant to Health Maintenance Insurance [facility] Member Subscriber Plan / Payer (Ef fective 2018-Present) Name:Aleah Levine Relation to Subscriber:Not on file Subscriber ID:Not on file Payer ID:[id number] (NAIC) Type:[facility] Address: [address] ANTH ACCESS Member Subscriber Plan / Payer (Ef fective 2018-Present) Name:Abner Aleah Amanda Relation to Subscriber:Self Name:ALEAH LEVINE Amanda Payer ID:[id number] (NAIC) Type:[employer] Address: [address] ACCESS OOS Member Subscriber Plan / Payer (Ef fective 2021-Present) Name:Aleah Levine Relation to Subscriber:Self Name:Abner Aleah J Payer ID:[id number] (NAIC) Type:[employer] Address: [address] [employer] [facility] MEDICARE ADVANTAGE UHC MEDICARE ADVANTAGE [employer] MEDICARE RISK Advance Directives For more information, please contact: [phone] * Full Code (Latest Code Status on [...] 8:35 AM 02/05/2023 7:30 PM Care Teams Gate Person Relationship Specialty Start Date End Date Maddy Romano MD [address] [place] [address] PCP - General 09/28/16 Manas Ibarra MD [address] [place] [address] Referring Physician Thoracic Surgery 11/05/18 Zion Barton MD [address] [place] [address] Radiation Oncologist Radiation Oncology 05/05/19 Molina Charles MD [address] [facility] [address] [place] [address] Referring Physician Transplant Hepatology 12/15/20 Karuna Maria, OT Occupational Therapist Occupational Therapy 09/20/22 Renu Treviño NP [address] [facility] [address] [place] [address] Nurse Practitioner Radiation Oncology 11/08/22 Eladio Mcrae MD [address] [place] [address] Referring Physician Obstetrics and Gynecology 11/15/22 Marcy Schroeder, RN [address] [place], [place] [id number] Veneer Slicing Machine Operator 04/27/24 Chelsea Barker, ceramic mold designerVeneer Slicing Machine Operator 11/13/24
--- OUTSIDE RECORDS SUMMARY | 2025-01-20 11:33 | XMS_ITS | Clinical Summary ---
Author Organization [facility] Address [address] [address] Care Team Providers Care Edge Polisher Name Role Phone Unavailable Primary Care Provider Unavailabl e Source Comments [facility],non-owned Affiliates and Associated Physician Practices is amultiple site organization consisting of ambulatory clinics and hospital sitesin [place], [place], [place] and [place]. This disclosure is being madepursuant to the Care Everywhere program and may not contain all information available regarding this patient. Last updated 18.[facility] Active Problems Problem Noted Date Diagnosed Date Decompensated hepatic cirrhosis 09/24/2024 Hepatic encephalopathy 04/01/2024 Cerebellar infarct 04/01/2024 Social History Tobacco Use Types Packs/Day Years Used Date Smoking Tobacco: Never Assessed Comments Unknown Sex and Gender Information Value Date Recorded Sex Assigned at Not on file Legal Sex Female 8:40 AM GILL BOX TENDER Gender Identity Not on file Sexual Orientation [...] 60-74 years 1-dose series) 2020 COVID-19 VACCINE (2023-2 5 season) 2024 DEPRESSION SCREENING 08/12/2024 INFLUENZA [...] patient's age to complete this topic Insurance [facility] [id number] [place] [id number]
--- OUTSIDE RECORDS SUMMARY | 2025-01-20 11:33 | XMS_ITS | Encounter Summary ---
Author Organization [facility] Healthcare Address [address] [place] [address] Care Team Providers Care Dispatcher Chief Oil Name Role Phone Maddy Romano MD Primary Care Provider Astrid Haq NP Unavailable Manas Ibarra MD Unavailable Zion Barton MD Unavailable Molina Charles MD Unavailable [phone] Inés Lemus RN Unavailable [phone] Karuna Maria OT Unavailable Unavaila Renu Paul NP Unavailable [phone] Eladio Mcrae MD Unavailable [phone] Marcy Schroeder RN Unavailable [phone] Briana Poe RN Unavailable [phone] Marina Le RN Unavailable Chelsea Barker RN Unavailable Unavail able Reason for Visit * Reason Onset Date Comments Ready to scheduled 04/26/2022 Encounter Details Date Type Department Care Team (Late st Contact Info) Description 04/26/2022 Telephone [facility] Specialty Services [address] [place] [address] Miscellaneous, Not In File Ready to scheduled [...] on file Legal Sex Female 8:22 AM TEMPERATURE REGULATOR PYROMETER Gender Identity Female 11/15/2021 2:30 AM CDT [...] COVID: Suspected 09/24/2024 09/24/2024 09/24/2024 3:13 PM TEMPERATURE REGULATOR PYROMETER documented as of this encounter Care Teams Dispatcher Chief Oil Relationship Specialty Start Date End Date Maddy Romano MD [address] [place] [address] PCP - General 09/28/16 Astrid Haq NP [address] [place] [address] Nurse Practitioner Radiation Oncology 11/05/18 11/07/22 Manas Ibarra MD [address] [place] [address] Referring Physician Thoracic Surgery 11/05/18 Zion Barton MD [address] [place] [address] Radiation Oncologist Radiation Oncology 05/05/19 Molina Charles MD 1 [facility] [address] [place] [address] Referring Physician Transplant Hepatology 12/15/20 Inés Lemus, TYRA [address] [facility] [address] [place] [address] Chicken Buyer 10/31/21 5 Karuna Maria, OT Occupational Therapist Occupational Therapy 09/20/22 Renu Treviño NP [address] [facility] [address] [place] [address] Nurse Practitioner Radiation Oncology 11/08/22 Eladio Mcrae MD [address] [place] [address] Referring Physician Obstetrics and Gynecology 11/15/22 Marcy Schroeder RN [address] [place] [address] Chicken Buyer 04/27/24 Briana Poe, TYRA [address] [address] [facility] Outpatient Nutrition Specialist 04/30/24 05/28/24 Marina Le RN [address] [place] [address] [facility] Outpatient Nutrition Specialist 10/05/24 10/26/24 Chelsea Barker, concrete rod busterChicken Buyer 11/13/24 documented as of this encounter
--- OUTSIDE RECORDS SUMMARY | 2025-01-20 11:33 | XMS_ITS | Encounter Summary ---
Author Organization [facility] Address [address] [place] [address] Care Team Providers Care Doorperson Name Role Phone Maddy Romano MD Primary Care Provider Manas Ibarra MD Unavailable Zion Barton MD Unavailable Molina Charles MD Unavailable [phone] Karuna Maria OT Unavailable Unavaila Renu Paul NP Unavailable [phone] Eladio Mcrae MD Unavailable [phone] Marcy Schroeder RN Unavailable [phone] Chelsea Barker RN Unavailable Unavail able Encounter Details Date Type Department Care Team (Latest Contact Info) Description 12/16/2024 Results Follow-Up [facility] Transplant Liver [address] [facility] [address] [place] [address] Chelsea Barker, RN Comprehensive metabolic panel Social History Tobacco Use Types Packs/Day Years Used Date Smoking Tobacco: Former Cigarettes 0.5 51 1 970 - 2020 Smokeless Tobacco: Never [facility] Utilities Answer Date Recorded In the past 12 months has th e electric, gas, oil, or water [employer] threatened to shut off services in your [...] often do you attend chur ch or tenriism services? Never 10/05/2024 Do you belong to any clubs o r organizations such as episcopal groups, unions, fraternal or athletic groups, or [...] time in the past 12 m [facility], were you homeless or living in a care home (including now)? No 10/05/2024 Personal Safety Answer Date Recorded Have you ever been in or are you currently in a harmful physical or emotional relationship or is someone making you feel afraid or unsafe? Denies 12/14/2024 Comments No Sex and Gender Information Value Date Recorded Sex Assigned at Not on file Legal Sex Female 8:22 AM ASSURANCE SERVICES MANAGER HEALTH CARE Gender Identity Female 11/15/2021 2:30 AM CDT [...] on filedocumented in this encounter Care Teams Doorperson Relationship Specialty Start Date End Date Maddy Romano MD [address] [place] [address] PCP - General 09/28/16 Manas Ibarra MD [address] [place] [address] Referring Physician Thoracic Surgery 11/05/18 Zion Barton MD [address] [place] [address] Radiation Oncologist Radiation Oncology 05/05/19 Molina Charles MD [address] [facility] [address] [place] [address] Referring Physician Transplant Hepatology 12/15/20 Karuna Maria, OT Occupational Therapist Occupational Therapy 09/20/22 Renu Treviño NP [address] [facility] [address] [place] [address] Nurse Practitioner Radiation Oncology 11/08/22 Eladio Mcrae MD [address] [place] [address] Referring Physician Obstetrics and Gynecology 11/15/22 Marcy Schroeder, RN [address] [place], [place] [address] Recovery Collector 04/27/24 Chelsea Barker, project specialistRecovery Collector 11/13/24 documented as of this encounter
--- OUTSIDE RECORDS SUMMARY | 2025-01-20 11:33 | XMS_ITS | Encounter Summary ---
Author Organization [facility] Healthcare Address [address] [place] [address] Care Team Providers Care Technical Support Internship Name Role Phone Maddy Romano MD Primary Care Provider Astrid Haq NP Unavailable Manas Ibarra MD Unavailable Zion Barton MD Unavailable Molina Charles MD Unavailable [phone] Inés Lemus RN Unavailable [phone] Karuna Maria OT Unavailable Unavaila Renu Paul NP Unavailable [phone] Eladio Mcrae MD Unavailable [phone] Marcy Schroeder RN Unavailable [phone] Briana Poe RN Unavailable [phone] Marina Le RN Unavailable [phone] Chelsea Barker RN Unavailable Unavail able Reason for Visit * Reason Onset Date Comments Ready to schedule 04/25/2022 Encounter Details Date Type Department Care Team (Late st Contact Info) Description 04/25/2022 Telephone [facility] Specialty Services [address] [place] [address] Miscellaneous, Not In File Ready to schedule [...] file Legal Sex Female 8:22 AM ICE CREAM MAKER Gender Identity Female 11/15/2021 2:30 AM CDT [...] COVID: Suspected 09/24/2024 09/24/2024 09/24/2024 3:13 PM ICE CREAM MAKER documented as of this encounter Care Teams Technical Support Internship Relationship Specialty Start Date End Date Maddy Romano MD [address] [place] [address] PCP - General 09/28/16 Astrid Haq NP [address] [place] [address] Nurse Practitioner Radiation Oncology 11/05/18 11/07/22 Manas Ibarra MD [address] [place] [address] Referring Physician Thoracic Surgery 11/05/18 Zion Barton MD [address] [place] [address] Radiation Oncologist Radiation Oncology 05/05/19 Molina Charles MD 1 [facility] [address] [place] [address] Referring Physician Transplant Hepatology 12/15/20 Inés Lemus, TYRA [address] [facility] [address] [place] [address] Fitter Hand 10/31/21 5 Karuna Maria, OT Occupational Therapist Occupational Therapy 09/20/22 Renu Treviño NP [address] [facility] [address] [place] [address] Nurse Practitioner Radiation Oncology 11/08/22 Eladio Mcrae MD [address] [place] [address] Referring Physician Obstetrics and Gynecology 11/15/22 Marcy Schroeder RN [address] [place] [address] Fitter Hand 04/27/24 Briana Poe, TYRA [address] [address] [facility] Outpatient Night Clerk Auditor 04/30/24 05/28/24 Marina Le RN [address] [place] [address] [facility] Outpatient Night Clerk Auditor 10/05/24 10/26/24 Chelsea Barker, reverse logistics analystFitter Hand 11/13/24 documented as of this encounter
--- OUTSIDE RECORDS SUMMARY | 2025-01-20 11:33 | XMS_ITS | Encounter Summary ---
Author Organization [facility] Address [address] [place] [address] Phone Care Team Providers Care Sales Office Manager Name Role Phone Maddy Romano MD Primary Care Provider Astrid Haq NP Unavailable Manas Ibarra MD Unavailable Zion Barton MD Unavailable Molina Charles MD Unavailable [phone] Inés Lemus RN Unavailable [phone] Karuna Maria OT Unavailable Unavaila Renu Paul NP Unavailable [phone] Eladio Mcrae MD Unavailable [phone] Marcy Schroeder RN Unavailable [phone] Briana oPe RN Unavailable [phone] Marina Le RN Unavailable Chelsea Barker RN [...] on file Legal Sex Female 8:22 AM PARER Gender Identity Female 11/15/2021 2:30 AM CDT [...] COVID: Suspected 09/24/2024 09/24/2024 09/24/2024 3:13 PM PARER documented as of this encounter Care Teams Sales Office Manager Relationship Specialty Start Date End Date Maddy Romano MD [address] [place] [address] PCP - General 09/28/16 Astrid Haq NP [address] [place], [place] [address] Nurse Practitioner Radiation Oncology 11/05/18 11/07/22 Manas Ibarra MD [address] [place], [place] [address] Referring Physician Thoracic Surgery 11/05/18 Zion Barton MD [address] [place], [place] [address] Radiation Oncologist Radiation Oncology 05/05/19 Molina Charles MD 1 [facility] [address] [place] [address] Referring Physician Transplant Hepatology 12/15/20 Inés Lemus, TYRA [address] [facility] [address] [place] [address] Certified Scrum Master 10/31/21 5 Karuna Maria OT Occupational Therapist Occupational Therapy 09/20/22 Renu Treviño NP [address] [facility] [address] [place] [address] Nurse Practitioner Radiation Oncology 11/08/22 Eladio Mcrae MD [address] [place] [address] Referring Physician Obstetrics and Gynecology 11/15/22 Marcy Schroeder, RN [address] [place] [address] Certified Scrum Master 04/27/24 Briana Poe TYRA 4590 [facility] [address] [place] [address] [facility] Outpatient Executive Director Contract Shop 04/30/24 05/28/24 Marina Le RN [address]90 [facility] [address] [place] [address] [facility] Outpatient Executive Director Contract Shop 10/05/24 10/26/24 Chelsea Barker, safety risk leadCertified Scrum Master 11/13/24 documented as of this encounter
--- OUTSIDE RECORDS SUMMARY | 2025-01-20 11:33 | XMS_ITS | Encounter Summary ---
Author Organization [facility] Address [address] [place] [address] Care Team Providers Care Street Light Repairer Name Role Phone Maddy Romano MD Primary Care Provider + [phone] Manas Ibarra MD Unavailable Zion Barton MD Unavailable [phone] Molina Charles MD Unavailable [phone] Inés Lemus RN Unavailable [phone] Karuna Maria OT Unavailable Unavaila Renu Paul NP Unavailable [phone] Eladio Mcrae MD Unavailable [phone] Marcy Schroeder RN Unavailable [phone] Briana Poe RN Unavailable [phone] Marina Le RN Unavailable [phone] Chelsea Barker RN Unavailable Unavail able Encounter Details Date Type Department Care Team (Late st Contact Info) Description 05/11/2024 Telephone [facility] [address] [place] [address] Ragini Wheeler, RN Social History Tobacco Use Types Packs/Day Years Used Date Smoking Tobacco: Former Cigarettes 0.5 51 1 970 - 2020 Smokeless Tobacco: Never [facility] Utilities Answer Date Recorded In [...] often do you attend chur ch or baptism services? Never 04/30/2024 Do you belong to any clubs o r organizations such as zoroastrianism groups, unions, fraternal or athletic groups, or [...] place to sleep or slept in a senior living (including now)? No 12/31/2022 Housing Stability Vital [...] in the past 12 m [facility], were you homeless or living in a senior living (including now)? No 04/30/2024 Personal Safety Answer Date Recorded Have you ever been in or are you currently in a harmful physical or emotional relationship or is someone making you feel afraid or unsafe? Denies 04/21/2024 Comments No Sex and Gender Information Value Date Recorded Sex Assigned at Not on file Legal Sex Female 8:22 AM PODIATRIC MEDICINE DOCTOR Gender Identity Female 11/15/2021 2:30 AM CDT [...] COVID: Suspected 09/24/2024 09/24/2024 09/24/2024 3:13 PM PODIATRIC MEDICINE DOCTOR documented as of this encounter Care Teams Street Light Repairer Relationship Specialty Start Date End Date Maddy Romano MD [address] [place] [address] PCP - General 09/28/16 Manas Ibarra MD [address] [place] [address] Referring Physician Thoracic Surgery 11/05/18 Zion Barton MD [address] [place] [address] Radiation Oncologist Radiation Oncology 05/05/19 Molina Charles MD 1 [facility] [address] [place] [address] Referring Physician Transplant Hepatology 12/15/20 Inés Lemus RN [address] [facility] [address] [place] [address] Pmo Business Analyst 10/31/21 5 Karuna Maria, OT Occupational Therapist Occupational Therapy 09/20/22 Renu Treviño NP 49[address] [facility] [address] [place] [address] Nurse Practitioner Radiation Oncology 11/08/22 Eladio Mcrae MD [address] [place] [address] Referring Physician Obstetrics and Gynecology 11/15/22 Marcy Schroeder RN [address] [place] [address] Pmo Business Analyst 04/27/24 Briana Poe RN [address] [facility] [address] [place] [address] [facility] Outpatient Project Asst 04/30/24 05/28/24 Marina eL, RN [address]90 [facility] [address] [place] [address] [facility] Outpatient Project Asst 10/05/24 10/26/24 Chelsea Barker, aerial sprayerPmo Business Analyst 11/13/24 documented as of this encounter
--- OUTSIDE RECORDS SUMMARY | 2025-01-20 11:33 | XMS_ITS | Encounter Summary ---
Author Organization [facility] Address [address] [place] [address] Phone Care Team Providers Care Production Clerk Name Role Phone Maddy Romano MD Primary Care Provider [phone] Manas Ibarra MD Unavailable Zion Barton MD Unavailable Molina Charles MD Unavailable [phone] Karuna Maria OT Unavailable Unavaila Renu Paul NP Unavailable [phone] Eladio Mcrae MD Unavailable [phone] Marcy Schroeder RN Unavailable [phone] Chelsea Barker RN Unavailable Unavail able Encounter Details Date Type Department Care Team (Late st Contact Info) Description 12/04/2024 Results Follow-Up [facility] Gastroenterology [address] [facility] 12th [place] [address] [place] [address] Molina Charles MD 1 [facility] [address] [place] [address] Protime-INR, Comprehensive metabolic panel, eGFR, Additional followed-up results: 3 Social History Tobacco Use Types Packs/Day Years Used Date Smoking Tobacco: Former Cigarettes 0.5 51 1 970 - 2020 Smokeless Tobacco: Never [facility] Utilities Answer Date Recorded In [...] any clubs o r organizations such as moravian groups, unions, fraternal or athletic groups, or [...] any time in the past 12 m [facility], were you homeless or living in a [...] on file Legal Sex Female 8:22 AM AGRICULTURAL RESEARCH TECHNICIAN Gender Identity Female 11/15/2021 2:30 AM [...] on filedocumented in this encounter Care Teams Production Clerk Relationship Specialty Start Date End Date Maddy Romano MD [address] [place] [address] PCP - General 09/28/16 Manas Ibarra MD [address] [place] [address] Referring Physician Thoracic Surgery 11/05/18 Zion Barton MD [address] [place] [address] Radiation Oncologist Radiation Oncology 05/05/19 Molina Charles MD 1 [facility] [address] [place] [address] Referring Physician Transplant Hepatology 12/15/20 Karuna Maria, OT Occupational Therapist Occupational Therapy 09/20/22 Renu Treviño NP [address] [facility] [address] [place] [address] Nurse Practitioner Radiation Oncology 11/08/22 Eladio Mcrae MD [address] [facility] [address] [place], [place] [address] Referring Physician Obstetrics and Gynecology 11/15/22 Marcy Schroeder, RN [address] [place] [address] Ornamental Metal Worker Helper 04/27/24 Chelsea Barker, professional athleteOrnamental Metal Worker Helper 11/13/24 documented as of this encounter
--- OUTSIDE RECORDS SUMMARY | 2025-01-20 11:33 | XMS_ITS | Encounter Summary ---
Author Organization [facility] Address [address] [place] [address] Phone Care Team Providers Care Measurer Name Role Phone Maddy Romano MD Primary Care Provider Astrid Haq NP Unavailable Manas Ibarra MD Unavailable Zion Barton MD Unavailable [phone] Molina Charles MD Unavailable [phone] Inés Lemus RN Unavailable [phone] Karuna Maria OT Unavailable Unavaila Renu Paul NP Unavailable Eladio Mcrae MD Unavailable Marcy Schroeder RN Unavailable [phone] Briana Poe RN Unavailable Marina Le RN [...] on file Legal Sex Female 8:22 AM DIGITAL ACCOUNT EXECUTIVE Gender Identity Female 11/15/2021 2:30 AM CDT Sexual Orientation Straight 02/02/2020 9: 00 AM CDT 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 of this encounter Plan of Treatment Scheduled Procedures Name Priority Associated Diagnoses Date/Ti me COLONOSCOPY Routine adult health maintenance LOYNS (nonalcoholic steatohepatitis) documented as of this encounter [...] COVID: Suspected 09/24/2024 09/24/2024 09/24/2024 3:13 PM DIGITAL ACCOUNT EXECUTIVE documented as of this encounter Care Teams Measurer Relationship Specialty Start Date End Date Maddy Romano MD [address] [place] [address] PCP - General 09/28/16 Astrid Haq NP [address] [place] [address] Nurse Practitioner Radiation Oncology 11/05/18 11/07/22 Manas Ibarra MD [address] [place] [address] Referring Physician Thoracic Surgery 11/05/18 Zion Barton MD [address] [place] [address] Radiation Oncologist Radiation Oncology 05/05/19 Molina Charles MD 1 [facility] [address] [place] [address] Referring Physician Transplant Hepatology 12/15/20 Inés Lemus RN 4590 [facility] [address] [place] [address] Desulfurizer Machine 10/31/21 5 Karuna Maria, OT Occupational Therapist Occupational Therapy 09/20/22 Renu Treviño NP [address] [facility] [address] [place], [place] [address] Nurse Practitioner Radiation Oncology 11/08/22 Eladio Mcrae MD [address] [place], [place] [address] Referring Physician Obstetrics and Gynecology 11/15/22 Marcy Schroeder, RN [address] [place] [address] Desulfurizer Machine 04/27/24 Briana Poe RN 4590 [facility] [address] [place] [address] [facility] Outpatient Glass Mechanic 04/30/24 05/28/24 Marina Le RN [address]90 [facility] [address] [place] [address] [facility] Outpatient Glass Mechanic 10/05/24 10/26/24 Chelsea Barker, counseling services managerDesulfurizer Machine 11/13/24 documented as of this encounter
--- OUTSIDE RECORDS SUMMARY | 2025-01-20 11:33 | XMS_ITS | Clinical Summary ---
Author Organization [facility] Address [address] [place] [address] Care Team Providers Care Respiratory Assistant Name Role Phone Maddy Romano MD Primary Care Provider Manas Ibarra MD Unavailable Zion Barton MD Unavailable Molina Charles MD Unavailable [phone] Karuna Maria OT Unavailable Unavaila Renu Paul NP Unavailable [phone] Eladio Mcrae MD Unavailable [phone] Marcy Schroeder RN Unavailable [phone] Chelsea Barker RN Unavailable Unavail able [...] stage 3a chronic kidney disease, unspecified whether care home insulin use (HCC) Will use 1 sensor every 10 days. 1 box = 3 sensors. 3 each Active blood-glucose transmitter (Dexcom G6 Transmitter) deviceIndications :Type 2 diabetes mellitus without complication, unspecified whether longwall headgate operator insulin use (HCC) Will use 1 transmitter every 90 days 1 each Active pen needle, diabetic (BD Ultra-Fine Mini Pen Needle) 31 gauge x 3/16 needleIndications :Type 2 diabetes mellitus without complication, unspecified whether longwall headgate operator insulin use (HCC) USE TO INJECT [...] 15 mL Active blood-glucose meter,continuous (Dexcom G7 Air Intelligence Officer) misc Use as directed. 1 each Active [...] total) by mouth daily 30 tablet 025 Active Additional Information Patient not taking.Reported on 10/14/2024 bumetanide (BUMEX) 1 mg tabletIndications :Stage 3b chronic kidney disease (HCC) Take 2 tablets (2 mg total) by mouth daily 270 tablet 025 Active tirzepatide (Mounjaro) 2.5 mg/0.5 mL pen injector injection Inject 0.5 mL (2.5 mg total) under the skin once a week 2 mL 025 Active blood-glucose sensor (Knoticecom G7 Sensor) device Use as directed. Change sensor every 10 days. 3 each 025 Active lactulose solution 10 gram/15mLIndicati ons:Portosystemic encephalopathy [...] times a day 60 tablet 11 024 2024 Discontinued Active Problems [...] 10/10/2022 Assessment & Plan (10/12/2022 12:20 PM DRAPERY HEAD FORMER): Episode of atrial flutter overnight with RVR up to 140s. Patient asymptomatic, normotensive. IV metoprolol X2 given to achieve rate control. [id number] vasc score of 3. TTE from 09/03 without valvular abnormalities. No new episodes today. Lytes within normal limits. - Continue thread marker - Continue home dose of metoprolol 25mg BID - Given that patient might be listed for transplant, hepatology would prefer to avoid apixaban. Lovenox is not ideal given her platelet count less than 100. Her INR is too high to consider warfarin. Anemia 10/05/2022 Assessment & Plan (10/11/2022 12:28 PM DRAPERY HEAD FORMER): - Hgb has down trended from 8 [...] 10/05/2022 Assessment & Plan (10/11/2022 12:45 PM DRAPERY HEAD FORMER): -Continue home dose of metoprolol 25mg BID Hepatic encephalopathy 07/31/2022 Assessment & Plan (03/06/2023 5:49 PM CDT): Good control on current medical management. No changes indicated. Assessment & Plan (08/03/2022 1:05 PM DRAPERY HEAD FORMER): Pt with hx of LYONS cirrhosis presenting with progressively worsening mental status over past several weeks. On initial examination patient was AAOx1, on subsequent exam she is now AAOx2 with appropriate responses. NH3 75. Unfortunately no safe area for bedside diagnostic paracentesis. Slurred speech and concerns for swallowing. GANG INVESTIGATOR completed swallow study and normal. Head CT: No acute intracranial abnormality. -Awaiting Liver MRI -Increased Lactulose to 4x daily (only 1 stool on 08/02) - Rifaximin and Lactulose (goal 3-5 bowel movements) - Fall precautions. - PT/OT: Home with assistance. Assessment & Plan (08/02/2022 2:34 PM DRAPERY HEAD FORMER): Pt with hx of LYONS cirrhosis presenting with progressively worsening mental status over past several weeks. On initial examination patient was AAOx1, on subsequent exam she is now AAOx2 with appropriate responses. NH3 75. Unfortunately no safe area for bedside diagnostic paracentesis. Slurred speech and concerns for swallowing. GANG INVESTIGATOR completed swallow study and normal. Head CT: No acute intracranial abnormality. - Rifaximin and Lactulose (goal 3-5 bowel movements) - Fall precautions. - PT/OT: Home with assistance. - GANG INVESTIGATOR completed bedside swallow and Normal Assessment & Plan (08/01/2022 3:28 PM DRAPERY HEAD FORMER): Pt with hx of LYONS cirrhosis presenting [...] concerns for swallowing. - Fall precautions. - GANG INVESTIGATOR/PT/OT Consults. Assessment & Plan (08/01/2022 4:16 AM DRAPERY HEAD FORMER): Pt with hx of LYONS cirrhosis presenting [...] mellitus Assessment & Plan (10/12/2022 2:58 PM DRAPERY HEAD FORMER): Previously on dose reduced insulin regimen at OSH 20u lantus, 7u tid lispro + ssi. - Her blood sugars were initially on the lower side (90-100) in setting of poor po intake and TR. Continue SSI only for now and will uptitrate as needed. - Continue Lantus 10u/daily + lispro 4TID Assessment & Plan (08/03/2022 1:09 PM DRAPERY HEAD FORMER): Home regimen of toujeo 42 units + SSI. -Lantus, Lispro TID AC and SSI -No Juice Diet -Consistent Carb+ 2gm NA diet. -CTM BGL Assessment & Plan (08/02/2022 2:38 PM DRAPERY HEAD FORMER): Home regimen of toujeo 42 units + SSI. -Lantus, Lispro TID AC and SSI -No Juice Diet -Consistent Carb+ 2gm NA diet. -CTM BGL Assessment & Plan (08/01/2022 3:26 PM DRAPERY HEAD FORMER): Home regimen of toujeo 42 units + SSI. Given TR and decreased PO intake, insulin regimen reduced to Lantus 20units. - Continue on 2g Na + DM2 diet - CTM BGL Assessment & Plan (08/01/2022 4:17 AM DRAPERY HEAD FORMER): Home regimen of toujeo 42 units + [...] (10/22/2022): Added automatically from request for surgery [id number] Volume overload 10/06/2022 05/29/2024 Assessment & Plan (10/10/2022 1:09 PM DRAPERY HEAD FORMER): In the setting of LYONS cirrhosis. Diuretics [...] (08/22/2022): Added automatically from request for surgery [id number] Portal vein thrombosis 08/01/202208/22 Assessment & Plan (08/03/2022 1:09 PM DRAPERY HEAD FORMER): -Apixaban 2.5mg BID Assessment & Plan (08/02/2022 2:39 PM DRAPERY HEAD FORMER): -Apixaban 2.5mg BID Assessment & Plan (08/01/2022 3:27 PM DRAPERY HEAD FORMER): -Apixaban 2.5mg BID Assessment & Plan (08/01/2022 4:17 AM DRAPERY HEAD FORMER): Continue home apixaban LYONS (nonalcoholic steatohepatitis) 11/02/2021 07/15/2024 Abnormal mammogram of right breast 11/02/2020 08/22/2022 Preop cardiovascular exam 09/23/2019 Overview (09/23/2019): Added automatically from request for surgery [id number] Colon cancer screening 04/21/201908/22 Overview (04/21/2019): Added automatically from request for surgery [id number] Esophageal varices without bleeding (CMS/HCC) 04/21/20 19 08/22/2022 Overview (04/21/2019): Added automatically from request for surgery [id number] Steatosis of liver 05/20/2017 3 detention current use of ant icoagulant therapy 07/26/2016 08/22/2022 Neutropenia 07/14/2015 07/15/2024 Portal vein thrombosis 07/14/201508/22 BMI 45.0-49.9, adult 11/18/2014 024 Hepatic cirrhosis 05/20/2014 10/05/2022 Abnormal magnetic resonance imaging study 05/20/2014 08/22/2022 Biliary colic 05/10/2014 08/22/2022 Lesion of liver 04/30/2014 08/22/2022 Decreased granulocyte count 01/14/2014 07/15/2024 Lymphopenia 03/17/2013 07/15/2024 Rash 03/25/2012 08/22/2022 Encounters Date Type Department Care Team Description 01/12/20 25 3:25 PM CDT Lab [facility] Advanced Medicine ([facility]) [address] [place] [phone] Cirrhosis of liver without ascites, unspecified hepatic cirrhosis type (HCC) 01/12/20 25 Telephone [facility] Transplant Liver [address] [facility] [address] [phone] [place] [address] Chelsea Barker, TYRA 01/09/20 25 Telephone [facility] Transplant Liver [address] [facility] [address] [phone] [place] [address] Chelsea Barker, TYRA 12/19/19 25 Telephone [facility] Endocrinology Metabolism and Lipid [address] [facility] Medicine 13th [place] [address] [place] [address] Katie Yates RN 12/18/19 25 Telephone [facility] Transplant Liver [address] [facility] [address] [place] [address] [phone] [place] [address] Chelsea Barker, TYRA 12/17/19 25 Results Follow-Up [facility] Transplant Liver [address] [facility] [address] [place] [address] [phone] [place] [address] Chelsea Barker RN Comprehensive metabolic panel 12/16/19 10:00 AM CDT - 12/16/19 11:59 PM CDT Hospital Encounter [address] [address] ESRD (end stage renal diseas e) (HCC) Discharge Disposition: Discharge to home or self care 12/16/19 Telephone [facility] Transplant Liver [address] [place] [address] [phone] [place] [address] Chelsea Barker RN 12/15/19 9:15 AM CDT - 12/15/19 9:45 AM CDT Surgery [facility] Endoscopy [address] [place] [address] Mercy Adler MD PhD ESOPHAGOGASTRODUODENOSCOPY 12/15/19 9:11 AM CDT Anesthesia Event [facility] Endoscopy [address] [place] [address] Ezequiel Waldron MD 12/15/19 8:08 AM CDT - 12/15/19 10:14 AM CDT Hospital Encounter [facility] Endoscopy [address] [place] [address] Mercy Adler MD PhD Discharge Disposition: Discharge to home or self care 12/15/19 Telephone [facility] Transplant Liver [address] [place] [address] [phone] [place] [address] Chelsea Barker RN 12/15/19 Results Follow-Up [facility] Transplant Liver [address] [place] [address] [place] [address] [phone] [place] [address] Chelsea Barker RN EGD 12/15/19 Telephone [facility] Transplant Liver [address] [place] [address] [place] [address] [phone] [place] [address] Chelsea Barker RN 12/09/19 Telephone [facility] Transplant Liver [address] [facility] [address] [phone] [place] [address] Chelsea Barker RN 12/05/19 3:20 PM CDT Lab [facility] [address] [place] [phone] 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 12/05/19 Results Follow-Up [facility] Gastroenterology [address] [place] [address] [place] [address] [place] [address] Molina Charles MD Protime-INR, Comprehensive metabolic panel, eGFR, Additional followed-up results: 3 12/02/19 Telephone [facility] Gastroenterology [facility] Advanced Medicine [facility] [place] [address] [place] [address] Marina Estrella LPN GI Preprocedure 11/28/19 Telephone [facility] Gastroenterology [address] [place] [address] Advanced Medicine [facility] [place] [address] [place] [address] Kimberley Goodman cancel procedure 11/27/19 Telephone [facility] Transplant Liver [address] 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 1st [place] [address] Timothy Pardo MD ESRD (end stage renal disease) (HCC) 11/20/19 2:00 PM CDT - 11/20/19 11:59 PM CDT Hospital Encounter [facility] of [address] [address] Discharge Disposition: Discharge to home or self care 11/12/19 11:30 AM CDT Therapy [facility] Speech Therapy [address] [place] [address] Oropharyngeal dysphagia (Primary Dx) 11/12/19 10:53 AM CDT - 11/12/19 11:59 PM CDT Hospital Encounter [facility] Radiology [address] [place] [address] Dysphagia, oropharyngeal Discharge Disposition: Discharge to home or self care 11/12/19 Plan of Care Documentation [facility] Speech Therapy [address] [place] [address] 10/28/19 25 SHOP/CHAP Subsequent Outreach [facility] OP CASE MANAGEMENT [address] [place] [address] Marina Le, RN 10/21/19 25 SHOP/CHAP Subsequent Outreach [facility] OP CASE MANAGEMENT [address] [place] [address] Marina Le, RN 10/21/19 25 Documentation [facility] Transplant Liver [address] [facility] [address] Mail[address] [phone] [place], [place] [phone] Celsa Vargas 10/21/19 25 Telephone [facility] Transplant Liver [address] [facility] [address] Mail[address] [phone] [place] [address] Inés Lemus, TYRA from Last 3 Months Immunizations Immunization Administration Dates Next Due Hep B Vaccine 01/22/2024,12/18/2023 Influenza, Quadrivalent, Spl it, Intramuscular 05/01/2019,05/26/2015 Influenza, Quadrivalent, Spl it, Preservative Free, Intramuscular 07/02/2023,04/29/2020,05/01/2019,05/09,05/08/2018,05/23/2017,05/17/2016 Influenza, Trivalent, IM (MDV) 04/28/2021,2013 Influenza, Trivalent, Preser vative Free, Intramuscular 05/29/2013 Neoprospecta (J&J) SARS-CoV-2 Vaccination 10/17/2020 Pneumococcal Conjugate PCV [...] Tobacco: Never Tobacco Cessation:Counseling Given: Not Answered [facility] Utilities Answer Date Recorded In the past 12 months has [employer], gas, oil, or water [employer] threatened to shut off services in your [...] often do you attend chur ch or faith services? Never 10/05/2024 Do you belong to any clubs o r organizations such as hinduism groups, unions, fraternal or athletic groups, or [...] on file Legal Sex Female 8:22 AM DRAPERY HEAD FORMER Gender Identity Female 11/15/2021 2:30 AM [...] 05/26/2015, 03/24/2014 Albumin Creatinine Ratio, Urine 03/01/2022 1 Depression Screening 01/27/2024 01/26/2023, 01/26/2023, 01/05/2023, Additional history exists DTaP/Tdap/Td Vaccine (2 - Td or Tdap) 03/24/2024 03/24/2014 Covid-19 Vaccine (2023-2 5 season) 2024 07/02/2023, 09/11/2021, 10/17/2020 Lipid Panel 04/22/2025 04/22/2024, 03/13, 04/02/2024, Additional history exists Breast Cancer Screening-Mammogram 04/27/2025 024, 12/06/2021 Cervical Cancer Screening 04/28/2025 04/28/2024, Hemoglobin A1C 05/27/2025 11/25/2024, 09/12, 09/28/2024, Additional history exists eGFR 01/11/2026 01/11/2025, 11/11, 11/25/2024, Additional history exists Colon Cancer Screening-Colonoscopy 05/30/2032 [...] with long-term current use of insulin (HCC) [id number], TUMOR MARKER Routine 11/25/2024 9:40 AM CDT [...] HEPATITIS C ANTIBODY Routine 06/16/2023 6:09 AM DRAPERY HEAD FORMER COLONOSCOPY 05/30/2022 9:28 AM CDT ALBUMIN CREATININE RATIO, URINE Routine 03/01/2021 2:45 PM CDT Type 2 diabetes mellitus without complication, unspecified whether care home insulin use (HCC) from Last 3 [...] 1:08 PM CDT 01/11/2025 1:51 PM CDT Molina Charles MD LAB BLOOD ORDERABLES Final Result [facility] Department [place] [address] * (ABNORMAL) Protime-INR (01/11/2025 1:08 PM CDT) PT 15.8(H) 9.7 - 13.0 sec INR 1.45(H) 0.90 - 1.20 CHARISSA DUNNE Comment: Interpretive data Oral anticoagulant therapeutic ranges: Venous thromboembolism prophylaxis or treatment: 2.0-3.0 CARDIOLOGY Standard range: 2.0-3.0 High-intensity range: 2.5-3.5 Refer to indication-specific guidelines for appropriate target ranges for prosthetic heart valve replacement. Current interpretive data was last revised on 2019. Blood 01/11/2025 1:08 PM CDT 01/11/2025 1:45 PM CDT Molina Charles MD LAB BLOOD ORDERABLES Final Result [facility] Department [place] [address] * (ABNORMAL) Comprehensive metabolic panel (01/11/2025 1:08 PM CDT) Sodium 141 135 - 145 mmol/L Potassium, pl 3.6 3.3 - 4.9 mmol/L [facility] Chloride 105 97 - 110 mmol/L [facility] CO2 29 22 - 32 mmol/L [facility] Anion gap 7 2 - 15 mmol/L [facility] BUN 17 6 - 25 mg/dL [facility] Creatinine 1.56(H) 0.60 - 1.10 mg/dL [facility] Glucose 150 70 - 199 mg/dL [facility] Comment: Interpretive Data Fasting glucose >/= [...] 2022. Calcium 8.7 8.5 - 10.3 mg/dL [facility] Bilirubin, total 1.9(H) 0.1 - 1.2 mg/dL [facility] Protein, pl 6.4(L) 6.5 - 8.5 g/dL [facility] Albumin 3.2(L) 3.5 - 5.0 g/dL [facility] Alk phos 97 40 - 130 Units/L [facility] ALT 17 7 - 45 Units/L [facility] AST 32 10 - 45 Units/L [facility] Blood 01/11/2025 1:08 PM CDT 01/11/2025 1:45 PM CDT Molina Charles MD LAB BLOOD ORDERABLES Final Result [facility] Department [place] [address] * HLA Antibody Screen by PRA or SAB per Schedule (Class I and Class II) (12/15/2024 10:00 AM CDT) Blood 12/15/2024 10:0 0 AM CDT Narrative HISTOTRAC - DRAPERY HEAD FORMER Sample received in lab and stored. No [...] Attending MD: Mercy Adler M.D. Room: [facility] ENDOSCOPY ROOM 03 Note Status: Finalized [...] and oxygen saturations were monitored continuously. The [id number] was introduced through the mouth, and advanced [...] upper endoscopy in 2 years [facility]. - Return to liver transplant clinic as [...] was last revised on 2014. POC Performer [id number] CHARISSA DUNNEWCH POC Device Number [id number] CHARISSA BJWCH Blood 12/14/2024 8:56 AM CDT 12/14/2024 8:56 AM CDT us Mercy Adler MD PhD LAB POCT ORDER RAVEN - DEVICE Final Result Performing Organization Address City/State/[facility] Co de Phone Number [facility] [address] [facility] Department [place] [address] * (ABNORMAL) eGFR (12/04/2024 1:50 PM CDT) [...] LAB BLOOD ORDERABLES Fin al Result CHARISSA [facility] Department [place] [address] * (ABNORMAL) Differential, auto (12/04/2024 1:50 PM CDT) Neutrophil abs 2.07 1.50 - 6.50 K/cumm Imm gran abs 0.01 0.00 - 0.10 K/cumm [facility] Lymphocyte abs 0.76(L) 0.80 - 3.30 K/cumm [facility] Monocyte abs 0.28 0.20 - 0.80 K/cumm [facility] Eosinophil abs 0.53(H) 0.00 - 0.50 K/cumm [facility] Basophil abs 0.02 0.00 - 0.10 K/cumm [facility] Neutrophil pct 56.5 % [facility] Comment: Interpretive Data Percent cell count reference ranges are not reported, since discordance with absolute values may lead to misinterpretation of CBC data. Current Interpretive Data was last revised on 2017. Imm gran pct 0.3 % [facility] Comment: Interpretive Data Percent cell count reference ranges are not reported, since discordance with absolute values may lead to misinterpretation of CBC data. Current Interpretive Data was last revised on 2017. Lymphocyte pct 20.7 % [facility] Comment: Interpretive Data Percent cell count reference ranges are not reported, since discordance with absolute values may lead to misinterpretation of CBC data. Current Interpretive Data was last revised on 2017. Monocyte pct 7.6 % [facility] Comment: Interpretive Data Percent cell count reference ranges are not reported, since discordance with absolute values may lead to misinterpretation of CBC data. Current Interpretive Data was last revised on 2017. Eosinophil pct 14.4 % [facility] Comment: Interpretive Data Percent cell count reference ranges are not reported, since discordance with absolute values may lead to misinterpretation of CBC data. Current Interpretive Data was last revised on 2017. Basophil pct 0.5 % [facility] Comment: Interpretive Data Percent cell count reference ranges are not reported, since discordance with absolute values may lead to misinterpretation of CBC data. Current Interpretive Data was last revised on 2017. Blood 12/04/2024 1:50 PM CDT 12/04/2024 3:08 PM CDT Taiwo Vázquez MD LAB BLOOD ORDERABLES Fin al Result Performing Organization Address [facility] Co de Phone Number [facility] [place] [place] [address] * (ABNORMAL) CBC with auto differential (12/04/2024 1:50 PM CDT) Pathologist [facility] WBC 3.67(L) 3.80 - 9.90 K/cumm Hgb 10.4(L) 11.9 - 15.5 g/dL [facility] Hct 30.5(L) 35.6 - 45.5 % [facility] Plt 53(L) 150 - 400 K/cumm [facility] MPV 11.9 9.1 - 12.3 fL [facility] RBC 3.29(L) 3.90 - 5.20 M/cumm [facility] MCV 92.7 81.3 - 96.4 fL [facility] MCH 31.6 27.1 - 33.3 pg [facility] MCHC 34.1 32.3 - 35.7 g/dL [facility] RDW CV 14.6 11.1 - 14.9 % [facility] RDW SD 49.7(H) 35.7 - 48.1 fL [facility] NRBC abs 0.00 0.00 - 0.01 K/cumm [facility] Blood 12/04/2024 1:50 PM CDT 12/04/2024 3:08 PM CDT Taiwo Vázquez MD LAB BLOOD ORDERABLES Fin al Result Performing Organization Address [facility] Co de Phone Number [facility] [place] [place] [address] * (ABNORMAL) Protime-INR (12/04/2024 1:50 PM CDT) Pathologist [facility] PT 15.6(H) 9.7 - 13.0 sec INR 1.43(H) 0.90 - 1.20 [facility] Comment: Interpretive data Oral anticoagulant therapeutic [...] Fin al Result Performing Organization Address [facility] Co de Phone Number [facility] [place] [address] * (ABNORMAL) Bilirubin, direct (12/04/2024 1:50 PM CDT) [facility] Bilirubin, direct 0.8(H) 0.1 - 0.3 mg/dL Blood 12/04/2024 1:50 PM CDT 12/04/2024 3:08 PM CDT Taiwo Vázquez MD LAB BLOOD ORDERABLES Fin al Result Performing Organization Address City/[facility]/ZIP Co de Phone Number [facility] [place] [address] * (ABNORMAL) Comprehensive metabolic panel (12/04/2024 1:50 PM CDT) [facility] Sodium 145 135 - 145 mmol/L Potassium, pl 3.5 3.3 - 4.9 mmol/L [facility] Chloride 108 97 - 110 mmol/L [facility] CO2 33(H) 22 - 32 mmol/L [facility] Anion gap 4 2 - 15 mmol/L [facility] BUN 16 6 - 25 mg/dL [facility] Creatinine 1.49(H) 0.60 - 1.10 mg/dL [facility] Glucose 139 70 - 199 mg/dL [facility] Comment: Interpretive Data Fasting glucose >/= [...] 2022. Calcium 8.9 8.5 - 10.3 mg/dL [facility] Bilirubin, total 1.8(H) 0.1 - 1.2 mg/dL [facility] Protein, pl 6.0(L) 6.5 - 8.5 g/dL [facility] Albumin 3.2(L) 3.5 - 5.0 g/dL [facility] Alk phos 98 40 - 130 Units/L [facility] ALT 17 7 - 45 Units/L [facility] AST 34 10 - 45 Units/L [facility] Blood 12/04/2024 1:50 PM CDT 12/04/2024 3:08 PM CDT Taiwo Vázquez MD LAB BLOOD ORDERABLES Fin al Result [facility] Department [place] [address] * (ABNORMAL) eGFR (11/25/2024 9:40 AM CDT) [...] data was last reviewed 2021. Blood 11/25/2024 9:4 0 AM CDT 11/25/2024 10:18 AM CDT us Taiwo Vázquez MD LAB BLOOD ORDERABLES Fin al Result [facility] Department [place] [address] * (ABNORMAL) Differential, auto (11/25/2024 9:40 AM CDT) Neutrophil abs 2.43 1.50 - 6.50 K/cumm Imm gran abs 0.00 0.00 - 0.10 K/cumm [facility] Lymphocyte abs 0.68(L) 0.80 - 3.30 K/cumm [facility] Monocyte abs 0.33 0.20 - 0.80 K/cumm [facility] Eosinophil abs 0.63(H) 0.00 - 0.50 K/cumm [facility] Basophil abs 0.02 0.00 - 0.10 K/cumm [facility] Neutrophil pct 59.4 % [facility] Comment: Interpretive Data Percent cell count reference ranges are not reported, since discordance with absolute values may lead to misinterpretation of CBC data. Current Interpretive Data was last revised on 2017. Imm gran pct 0.0 % [facility] Comment: Interpretive Data Percent cell count reference ranges are not reported, since discordance with absolute values may lead to misinterpretation of CBC data. Current Interpretive Data was last revised on 2017. Lymphocyte pct 16.6 % [facility] Comment: Interpretive Data Percent cell count reference ranges are not reported, since discordance with absolute values may lead to misinterpretation of CBC data. Current Interpretive Data was last revised on 2017. Monocyte pct 8.1 % [facility] Comment: Interpretive Data Percent cell count reference ranges are not reported, since discordance with absolute values may lead to misinterpretation of CBC data. Current Interpretive Data was last revised on 2017. Eosinophil pct 15.4 % [facility] Comment: Interpretive Data Percent cell count reference ranges are not reported, since discordance with absolute values may lead to misinterpretation of CBC data. Current Interpretive Data was last revised on 2017. Basophil pct 0.5 % [facility] Comment: Interpretive Data Percent cell count reference ranges are not reported, since discordance with absolute values may lead to misinterpretation of CBC data. Current Interpretive Data was last revised on 2017. Blood 11/25/2024 9:40 AM CDT 11/25/2024 10:10 AM CDT us Taiwo Vázquez MD LAB BLOOD ORDERABLES Fin al Result [facility] Department [place] [address] * (ABNORMAL) CBC with auto differential (11/25/2024 9:40 AM CDT) WBC 4.09 3.80 - 9.90 K/cumm Hgb 9.9(L) 11.9 - 15.5 g/dL [facility] Hct 30.5(L) 35.6 - 45.5 % [facility] Plt 52(L) 150 - 400 K/cumm [facility] MPV 11.3 9.1 - 12.3 fL [facility] RBC 3.22(L) 3.90 - 5.20 M/cumm [facility] MCV 94.7 81.3 - 96.4 fL [facility] MCH 30.7 27.1 - 33.3 pg [facility] MCHC 32.5 32.3 - 35.7 g/dL [facility] RDW CV 14.9 11.1 - 14.9 % [facility] RDW SD 51.8(H) 35.7 - 48.1 fL [facility] NRBC abs 0.00 0.00 - 0.01 K/cumm [facility] Blood 11/25/2024 9:40 AM CDT 11/25/2024 10:10 AM CDT Taiwo Vázquez MD LAB BLOOD ORDERABLES Fin al Result Performing Organization Address [facility] de Phone Number [facility] [place] [address] * Nanmi-3-Stbpournzlu, Tumor Marker (11/25/2024 9:40 AM CDT) alpha [...] 2018;[id number]:[id number] Katya House et al. Clin Chem 2014;[id number]. Current interpretive data was last revised 2022. Blood 11/25/2024 9:40 AM CDT 11/25/2024 10:10 AM CDT Taiwo Vázquez MD LAB BLOOD ORDERABLES Fin al Result Performing Organization Address City/[facility] Co de Phone Number [facility] Department [place] [address] * (ABNORMAL) Protime-INR (11/25/2024 9:40 AM CDT) PT 15.7(H) 9.7 - 13.0 sec INR 1.44(H) 0.90 - 1.20 [facility] Comment: Interpretive data Oral anticoagulant therapeutic [...] Fin al Result Performing Organization Address [facility] [place] [address] * Hemoglobin A1c (11/25/2024 9:40 AM CDT) Pathologist [facility] Hgb A1C 5.5 4.0 - 5.6 % Estimated Average Glucose 111 mg/dL [facility] Comment: The ADA recommends reporting an estimated [...] Fin al Result Performing Organization Address [facility] [place] [address] * (ABNORMAL) Bilirubin, direct (11/25/2024 9:40 AM CDT) Bilirubin, direct 0.9(H) 0.1 - 0.3 mg/dL Blood 11/25/2024 9:40 AM CDT 11/25/2024 10:10 AM CDT us Taiwo Vázquez MD LAB BLOOD ORDERABLES Fin al Result [facility] Department [place] [address] * (ABNORMAL) Comprehensive metabolic panel (11/25/2024 9:40 AM CDT) Pathologist [facility] Sodium 145 135 - 145 mmol/L Potassium, pl 3.4 3.3 - 4.9 mmol/L [facility] Chloride 108 97 - 110 mmol/L [facility] CO2 31 22 - 32 mmol/L [facility] Anion gap 6 2 - 15 mmol/L [facility] BUN 13 6 - 25 mg/dL [facility] Creatinine 1.26(H) 0.60 - 1.10 mg/dL [facility] Glucose 129 70 - 199 mg/dL [facility] Comment: Interpretive Data Fasting glucose >/= [...] 2022. Calcium 8.6 8.5 - 10.3 mg/dL [facility] Bilirubin, total 2.1(H) 0.1 - 1.2 mg/dL [facility] Protein, pl 5.8(L) 6.5 - 8.5 g/dL [facility] Albumin 3.1(L) 3.5 - 5.0 g/dL [facility] Alk phos 96 40 - 130 Units/L [facility] ALT 19 7 - 45 Units/L [facility] AST 30 10 - 45 Units/L [facility] Blood 11/25/2024 9:40 AM CDT 11/25/2024 10:10 AM CDT Taiwo Vázquez MD LAB BLOOD ORDERABLES Fin al Result [facility] Department [place] [address] * HLA Antibody Screen by PRA or SAB per Schedule (Class I and Class II) (11/19/2024 2:00 PM CDT) Blood 11/19/2024 2:00 PM CDT Narrative HISTOTRAC - DRAPERY HEAD FORMER Sample received in lab. Single Antigen Antibody [...] a method developed and validated by the [facility] HLA laboratory based on an FDA-approved IVD kit (LABScreen Single-Antigen, [employer], [place], [place]). All patient serum samples are pretreated with EDTA before the screen to prevent complement interference. Additional serum treatments, such as adsorption and DTT treatment, may be performed as indicated. Interpretive comments: Low risk: MFI [id number]. Moderate risk: MFI [id number]. Increased risk: MFI >/= 5000. The presence [...] antigens to avoid. Testing performed at the [facility], [address] [place] [address], 5th floor, [place], [address]. IA # [id number]. Rani Smith, Ph.D., Test Cell Technician, HLA Laboratory Aurelio Palafox M.D., Ph.D., Lead Inspector, HLA Laboratory Norma Talamantes, Ph.D., CLIA Lead Inspector, [facility] Current methodology and interpretive comments [...] it. Electronically signed by: Louie Jenkins M.D. us Molina Dsouza MD IMG FLUOROSCOPY VA OCEDURES Final Result * Pap and High Risk HPV and Genotyping (Cytology Component) (04/28/2024 10:41 AM CDT) Thin prep (Pap test) 04/28/2024 10:41 AM CDT 04/28/2024 1:00 PM CDT Narrative PATHOLOGY [facility] - 05/04/2024 4:21 PM CDT EPIC results best viewed via link to PDF [facility] Chelsea Cronin Laboratory of Surgical Pathology [place], [place] [id number] Note to Patients: This report may contain [...] Gender: F : 1960 (Age: 63) Address: [address] [place], [place] [id number] Hospital #: [id number] Service: Medical Location: [place] [address] Patient Type: [facility] Inpatient Taken: 04/28/2024 Received: 04/28/2024 [...] this test have been verified by the [facility] Molecular Infectious Disease laboratory. Correlate with reported cytology results, as applicable. Interpretive data last revised 23 [facility]/05/04/2024 16:21 JEANNIE [place](ASCP) Report Electronically Reviewed and [...] clinical information and biopsy results as indicated. [facility] Clinical Laboratory Improvement Amendments (CLIA) mandate that cytologic and histologic results be correlated for laboratory quality assurance supervisor chassis & improvement standards. FOR ALL HIGH-GRADE CASES [...] determined by the Surgical Pathology Department at [facility] as part of an ongoing quality improvement coordinator program and in compliance with federally mandated [...] determined by the Surgical Pathology Department of [facility]. It has not been cleared or approved by the U. S. Food and Drug Administration. Eladio Carey MD LAB CYTOLOGY ORDERABLES Final Result Performing Organization Address City/State/[facility] Co de Phone Number PATHOLOGY [facility] 3rd Floor [place], [place] [phone] * Screening Mammogram Bilateral W Pal (04/27/2024 1:55 PM CDT) Anatomical Region Laterality Modality Breast Bilateral Mammography Narrative 04/27/2024 1:52 PM CDT Mammogram Technique: Bilateral Digital Breast Tomosynthesis, Bilateral C-view 2D Screening mammogram. Views obtained: bilateral craniocaudal and bilateral mediolateral oblique. Computer Aided Detection was performed. Mammogram Findings: The present examination has been compared to prior imaging studies performed at [facility] on 05/15/2021 and 12/06/2021. There are scattered [...] compared to prior imaging studies performed at [facility] on 05/15/2021 and 12/06/2021. There are scattered [...] revised on 2018. Triglycerides 43 <=149 mg/dL [facility] Comment: Interpretive Data Ages < [...] on 2018. HDL 64 >=40 mg/dL [facility] Comment: Interpretive Data Ages < [...] on 2018. LDL, calculated 47 <=129 mg/dL [facility] Comment: Interpretive Data Ages < [...] revised on 2024. Non-HDL Cholesterol 58 mg/dL [facility] Comment: Interpretive Data Ages < or [...] last revised on 2018. Chol/HDL ratio 2 [facility] Blood 04/22/2024 12:5 8 AM CDT 04/22/2024 3:00 AM CDT John Paul Reddy MD LAB BLOOD ORDERABLES Final Resul t Performing Organization Address City/[facility] Co de Phone Number [facility] [place] [address] * Hepatitis C antibody Blood (06/16/2023 6:09 AM DRAPERY HEAD FORMER) Hep C Ab Nonreactive Nonreactive [facility] Comment:Antibodies to HCV no t detected. Does NOT exclude the possibility of recent exposure to HCV. Current interpretive data was last revised on 22 Blood 06/16/2023 6:09 AM DRAPERY HEAD FORMER 06/16/2023 6:35 AM DRAPERY HEAD FORMER us Alejandro Frazier MD LAB MICROBIOLOGY - GENERAL ORDERABLES Final Result Performing Organization Address [facility] Co de Phone Number [facility] [place] [address] * COLONOSCOPY (05/30/2022 9:28 AM CDT) Anatomical Region Laterality Modality Other Narrative Procedure Note Pat Robins MD - 05/30/2022 9:28 AM CDT GI ENDOSCOPY [facility] Patient Name: Aleah Levine Procedure Date: 05/30/2022 9:28 AM Date of : 1960 Admit Type: Outpatient Age: 61 Gender: Female Attending MD: Pat Robins M.D. Room: [facility] ENDOSCOPY ROOM 3 Note Status: [...] The scope was passed under direct vision.The [facility] [id number] endoscope was introducedthrough the anus and [...] On: 05/30/2022 9:28 AM Recognized by the [place] [employer] for promoting quality in endoscopy Pat Robins MD ENDOSCOPY PROCEDURES Ju l Result * Albumin Creatinine Ratio, Urine (03/01/2021 2:45 PM CDT) Albumin Ur <12.0 mg/L [facility] Comment: Interpretive Data No reference range established. Current interpretive data was last revised 2018. Creatinine Ur 59.5 mg/dL [facility] Comment: Interpretive Data No reference range established. Current interpretive data was last revised 2018. Albumin Creatinine Ratio, Ur <20 1 - 29 mg/g [facility] Urine 03/01/2021 2:45 PM CDT 03/01/2021 3:41 PM CDT Oly Baker MD LAB URINE ORDER RAVEN Final Result [facility] Department [place] [address] from Last 3 Months or Most Recently Relevant to Health Maintenance Insurance [facility] EPO [employer] [place] ANTH ACCESS [employer] [place] Member Subscriber Plan / Payer (Ef fective 2021-Present) Name:Aleah Levine Relation to Subscriber:Self Name:Aleah Levine Amanda Payer ID:[id number] (NAIC) Type:BC [place] Address: [address] TRANSPLANT [facility] MEDICARE ADVANTAGE [facility] MEDICARE ADVANTAGE TRANSPLANT [employer] MEDICARE RISK TRANSPLANT [employer] MEDICARE RISK Advance Directives For more information, please contact: [phone] * Full Code (Latest Code Status on [...] 8:35 AM 02/05/2023 7:30 PM Care Teams Respiratory Assistant Relationship Specialty Start Date End Date Maddy Romano MD [address] [place] [address] PCP - General 09/28/16 Manas Ibarra MD [address] [place], [place] [address] Referring Physician Thoracic Surgery 11/05/18 Zion Barton MD [address] [place] [address] Radiation Oncologist Radiation Oncology 05/05/19 Molina Charles MD 1 [facility] [address] [place] [address] Referring Physician Transplant Hepatology 12/15/20 Karuna Maria, OT Occupational Therapist Occupational Therapy 09/20/22 Renu Treviño NP [address] [facility] [address] [place] [address] Nurse Practitioner Radiation Oncology 11/08/22 Eladio Mcrae MD [address] [place] [address] Referring Physician Obstetrics and Gynecology 11/15/22 Marcy Schroeder, RN [address] [place] [address] Quitline Counselor 04/27/24 hCelsea Barker, manager dialysisQuitline Counselor 11/13/24
--- OUTSIDE RECORDS SUMMARY | 2025-01-20 11:33 | XMS_ITS | Encounter Summary ---
Author Organization [facility] Address [address] [place] [address] Phone Care Team Providers Care Safety Investigator Name Role Phone Maddy Romano MD Primary Care Provider [phone] Astrid Haq NP Unavailable Manas Ibarra MD Unavailable Zion Barton MD Unavailable Molina Charles MD Unavailable [phone] Inés Lemus RN Unavailable [phone] Karuna Maria OT Unavailable Unavaila Renu Paul NP Unavailable [phone] Eladio Mcrae MD Unavailable [phone] Marcy Schroeder RN Unavailable [phone] Briana Poe RN Unavailable Marina Le RN [...] on file Legal Sex Female 8:22 AM TEAM LEAD Gender Identity Female 11/15/2021 2:30 AM [...] COVID: Suspected 09/24/2024 09/24/2024 09/24/2024 3:13 PM TEAM LEAD documented as of this encounter Care Teams Safety Investigator Relationship Specialty Start Date End Date Maddy Romano MD [address] [place] [address] PCP - General 09/28/16 Astrid Haq NP [address] [place] [address] Nurse Practitioner Radiation Oncology 11/05/18 11/07/22 Manas Ibarra MD [address] [place] [address] Referring Physician Thoracic Surgery 11/05/18 Zion Barton MD [address] [place] [address] Radiation Oncologist Radiation Oncology 05/05/19 Molina Charles MD [address] [place] [address] [address] [place] [address] Referring Physician Transplant Hepatology 12/15/20 Inés Lemus, TYRA [address] [facility] [address] [place] [address] Extended Day Teacher 10/31/21 5 Karuna Maria, OT Occupational Therapist Occupational Therapy 09/20/22 Renu Treviño NP [address] [facility] [address] [place] [address] Nurse Practitioner Radiation Oncology 11/08/22 Eladio Mcrae MD [address] [place] [address] Referring Physician Obstetrics and Gynecology 11/15/22 Marcy Schroeder RN [address] [place] [address] Extended Day Teacher 04/27/24 Briana Poe, TYRA [address] [address] [facility] Outpatient Chronometer Assembler And Adjuster 04/30/24 05/28/24 Marina Le RN [address] [address] [facility] Outpatient Chronometer Assembler And Adjuster 10/05/24 10/26/24 Chelsea Barker, mobile service rv technicianExtended Day Teacher 11/13/24 documented as of this encounter
--- OUTSIDE RECORDS SUMMARY | 2025-01-20 11:33 | XMS_ITS | Encounter Summary ---
Author Organization [facility] Address [address] [place] [address] Phone Care Team Providers Care Coding Validator Name Role Phone Maddy Romano MD Primary Care Provider Astrid Haq NP Unavailable Manas Ibarra MD Unavailable Zion Barton MD Unavailable Molina Charles MD Unavailable [phone] Inés Lemus RN Unavailable [phone] Karuna Maria OT Unavailable Unavaila Renu Paul NP Unavailable Eladio Mcrae MD Unavailable [phone] Marcy Schroeder RN Unavailable [phone] Briana Poe RN Unavailable Marina Le RN [...] on file Legal Sex Female 8:22 AM COMMUTATOR INSPECTOR Gender Identity Female 11/15/2021 2:30 AM [...] COVID: Suspected 09/24/2024 09/24/2024 09/24/2024 3:13 PM COMMUTATOR INSPECTOR documented as of this encounter Care Teams Coding Validator Relationship Specialty Start Date End Date Maddy Romano MD [address] [place] [address] PCP - General 09/28/16 Astrid Haq NP [address] [place], [place] [address] Nurse Practitioner Radiation Oncology 11/05/18 11/07/22 Manas Ibarra MD [address] [place], [place] [address] Referring Physician Thoracic Surgery 11/05/18 Zion Barton MD [address] [place], [place] [address] Radiation Oncologist Radiation Oncology 05/05/19 Molina Charles MD 1 [facility] [address] [place] [address] Referring Physician Transplant Hepatology 12/15/20 Inés Lemus, TYRA [address] [facility] [address] [place] [address] Lab Rn 10/31/21 5 Karuna Maria OT Occupational Therapist Occupational Therapy 09/20/22 Renu Treviño NP [address] [facility] [address] [place] [address] Nurse Practitioner Radiation Oncology 11/08/22 Eladio Mcrae MD [address] [place] [address] Referring Physician Obstetrics and Gynecology 11/15/22 Marcy Schroeder, RN [address] [place] [address] Lab Rn 04/27/24 Briana Poe TYRA [address] [facility] [address] [place] [address] [employer] Outpatient Gaming Commissioner 04/30/24 05/28/24 Marina Le RN [address] [facility] [address] [place] [address] [facility] Outpatient Gaming Commissioner 10/05/24 10/26/24 Chelsea Barker, otr company driverLab Rn 11/13/24 documented as of this encounter
--- OUTSIDE RECORDS SUMMARY | 2025-01-20 11:33 | XMS_ITS | Encounter Summary ---
Author Organization [facility] Address [address] [place] [address] Phone Care Team Providers Care Managing Editor Name Role Phone Maddy Romano MD Primary Care Provider Astrid Haq NP Unavailable Manas Ibarra MD Unavailable Zion Barton MD Unavailable Molina Charles MD Unavailable [phone] Inés Lemus RN Unavailable [phone] Karuna Maria OT Unavailable Unavaila Renu Paul NP Unavailable [phone] Eladio Mcrae MD Unavailable [phone] Marcy Schroeder RN Unavailable [phone] Briana Poe RN Unavailable [phone] Marina Le RN Unavailable [phone] Chelsea Barker RN Unavailable Unavail able Encounter [...] on file Legal Sex Female 8:22 AM RESEARCH KENNEL SUPERVISOR Gender Identity Female 11/15/2021 2:30 AM [...] COVID: Suspected 09/24/2024 09/24/2024 09/24/2024 3:13 PM RESEARCH KENNEL SUPERVISOR documented as of this encounter Care Teams Managing Editor Relationship Specialty Start Date End Date Maddy Romano MD [address] [place] [address] PCP - General 09/28/16 Astrid Haq NP [address] [place], [place] [address] Nurse Practitioner Radiation Oncology 11/05/18 11/07/22 Manas Ibarra MD [address] [place], [place] [address] Referring Physician Thoracic Surgery 11/05/18 Zion Barton MD [address] [place], [place] [address] Radiation Oncologist Radiation Oncology 05/05/19 Molina Charles MD 1 [facility] [address] [place] [address] Referring Physician Transplant Hepatology 12/15/20 Inés Lemus, TYRA [address] [facility] [address] [place] [address] Tow Feeder 10/31/21 5 Karuna Maria OT Occupational Therapist Occupational Therapy 09/20/22 Renu Treviño NP [address] [facility] [address] [place] [address] Nurse Practitioner Radiation Oncology 11/08/22 Eladio Mcrae MD [address] [place] [address] Referring Physician Obstetrics and Gynecology 11/15/22 Marcy Schroeder, RN [address] [place] [address] Tow Feeder 04/27/24 Briana Poe YTRA [address] [facility] [address] [place] [address] SHOP Outpatient Children'S Minister 04/30/24 05/28/24 Marina Le RN [address] [facility] [address] [place] [address] [facility] Outpatient Children'S Minister 10/05/24 10/26/24 Chelsea Barker, rear load truck driverTow Feeder 11/13/24 documented as of this encounter
--- OUTSIDE RECORDS SUMMARY | 2025-01-20 11:33 | XMS_ITS | Encounter Summary ---
Author Organization [facility] Address [address] [place] [address] Care Team Providers Care Station Engineer Chief Name Role Phone Maddy Romano MD Primary Care Provider Manas Ibarra MD Unavailable Zion Barton MD Unavailable Molina Charles MD Unavailable [phone] Karuna Maria OT Unavailable Unavaila Renu Paul NP Unavailable [phone] Eladio Mcrae MD Unavailable [phone] Marcy Schroeder RN Unavailable [phone] Chelsea Barker RN Unavailable Unavail able Encounter Details Date Type Department Care Team (Late st Contact Info) Description 12/14/2024 Results Follow-Up [facility] Transplant Liver [address] [facility] [address] [place] [address] Chelsea Barker, RN EGD Social History Tobacco Use Types Packs/Day Years Used Date Smoking Tobacco: Former Cigarettes 0.5 51 1 970 - 2020 Smokeless Tobacco: Never [facility] Utilities Answer Date Recorded In the past 12 months has th e electric, gas, oil, or water [employer] threatened to shut off services in your [...] often do you attend chur ch or buddhist services? Never 10/05/2024 Do you belong to any clubs o r organizations such as synagogue groups, unions, fraternal or athletic groups, or [...] any time in the past 12 m [facility], were you homeless or [...] on file Legal Sex Female 8:22 AM CIRCLE CUTTING SAW OPERATOR Gender Identity Female 11/15/2021 2:30 AM [...] on filedocumented in this encounter Care Teams Station Engineer Chief Relationship Specialty Start Date End Date Maddy Romano MD [address] [place] [address] PCP - General 09/28/16 Manas Ibarra MD [address] [place] [address] Referring Physician Thoracic Surgery 11/05/18 Zion Barton MD [address] [place], [place] [address] Radiation Oncologist Radiation Oncology 05/05/19 Molina Charles MD 1 [facility] [address] [place] [address] Referring Physician Transplant Hepatology 12/15/20 Karuna Maria, OT Occupational Therapist Occupational Therapy 09/20/22 Renu Treviño NP [address] [facility] [address] [place] [address] Nurse Practitioner Radiation Oncology 11/08/22 Eladio Mcrae MD [address] [place] [address] Referring Physician Obstetrics and Gynecology 11/15/22 Marcy Schroeder, RN [address] [place] [address] Acting Instructor 04/27/24 Chelsea Barker, merchandise complaint adjusterActing Instructor 11/13/24 documented as of this encounter
--- OUTSIDE RECORDS SUMMARY | 2025-01-20 11:34 | XMS_ITS ---
Author Organization [facility] Address [address] [place] [address] Care Team Providers Care Specialties Operator Name Role Phone Maddy Romano MD Primary Care Provider [phone] Manas Ibarra MD Unavailable Zion Barton MD Unavailable [phone] Molina Charles MD Unavailable [phone] Karuna Maria OT Unavailable Unavaila Renu Paul NP Unavailable [phone] Eladio Mcrae MD Unavailable [phone] Marcy Schroeder RN Unavailable [phone] Chelsea Barker RN Unavailable Unavail able Transplant Episode Liver Candidate [facility] ([place], [place]) - [facility] Center waitlisted on 08/17/2022 Marked as Active on 09/28/2024 Reason: [facility] Liver CoordinatorChelsea Barker RN Phone: N/A Fax: N/A Email: N/A Scores Score Value Updated Expires Exceptions/[place] sons CPRA Not available UNOS MELD 01/11/2025 02/10/2025 MELD (Calc) 19 01/11/2025 [place] Organ Diagnosis Organ Primary Contributory Liver Cirrhosis: Metabolic Dysfunction -Associated Steatohepatitis (MASH) Care Team Name Role Phone Fax Email Chelsea Barker, TYRA Liver Coordinator N/A N/A N/A Charito Lambert, DEVONTE Dietitian N/A N/A N/A Anna Ngo, BUS ESCORT Wireless Development Manager N/A N/A N/A Molina Charles MD Referring Physician [phone] N/A Cynthia Robert RN Secondary Coordinator [phone] N/A N/A [place] Bear Coal Or Ore Controller [phone] N/A N/A Faith Lopez Primary Marketing Services Coordinator N/A N/A N/A Events Pre-Transplant Referred: 10/26/2021 Evaluation began: 11/02/2021 Committee: 08/07/2022 Center waitlisted: 08/17/2022 Appointments (12/20/2024 - 02/19/2025) When With Visit Type Description 01/11/2025 Lab LAB VISIT 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
--- OUTSIDE RECORDS SUMMARY | 2025-01-20 11:34 | XMS_ITS | Encounter Summary ---
Author Organization [facility] Address [address] [place] [address] Phone Care Team Providers Care Core Manager Name Role Phone Maddy Romano MD Primary Care Provider Astrid Haq NP Unavailable Manas Ibarra MD Unavailable Zion Barton MD Unavailable Molina Charles MD Unavailable [phone] Inés Lemus RN Unavailable [phone] Karuna Maria OT Unavailable Unavaila Renu Paul NP Unavailable Eladio Mcrae MD Unavailable [phone] Marcy Schroeder RN Unavailable [phone] Briana Poe RN Unavailable Marina Le RN Unavailable [phone] Chelsea Barker RN Unavailable Unavail able Encounter [...] on file Legal Sex Female 8:22 AM MILL AND COAL TRANSPORT OPERATOR Gender Identity Female 11/15/2021 2:30 AM [...] COVID: Suspected 09/24/2024 09/24/2024 09/24/2024 3:13 PM MILL AND COAL TRANSPORT OPERATOR documented as of this encounter Care Teams Core Manager Relationship Specialty Start Date End Date Maddy Romano MD [address] [place] [address] PCP - General 09/28/16 Astrid Haq NP [address] [place] [address] Nurse Practitioner Radiation Oncology 11/05/18 11/07/22 Manas Ibarra MD [address] [place] [address] Referring Physician Thoracic Surgery 11/05/18 Zion Barton MD [address] [place] [address] Radiation Oncologist Radiation Oncology 05/05/19 Molina Charles MD [address] [place] [address] [address] [place] [address] Referring Physician Transplant Hepatology 12/15/20 Inés Lemus, TYRA [address] [facility] [address] [place] [address] Agency Manager 10/31/21 5 Karuna Maria, OT Occupational Therapist Occupational Therapy 09/20/22 Renu Treviño NP [address] [facility] [address] [place] [address] Nurse Practitioner Radiation Oncology 11/08/22 Eladio Mcrae MD [address] [facility] [address] [place] [address] Referring Physician Obstetrics and Gynecology 11/15/22 Marcy Schroeder RN [address] [place] [address] Agency Manager 04/27/24 Briana Poe, TYRA [address] [address] [facility] Outpatient Cold Work Operator 04/30/24 05/28/24 Marina Le RN [address] [address] [facility] Outpatient Cold Work Operator 10/05/24 10/26/24 Chelsea Barker, regional facilities specialistAgency Manager 11/13/24 documented as of this encounter
--- OUTSIDE RECORDS SUMMARY | 2025-01-20 11:34 | XMS_ITS ---
Author Organization [facility] Address [address] [place] [address] Care Team Providers Care It Lead Name Role Phone Maddy Romano MD Primary Care Provider Manas Ibarra MD Unavailable Zion Barton MD Unavailable Molina Charles MD Unavailable [phone] Karuna Maria OT Unavailable Unavaila Renu Paul NP Unavailable [phone] Eladio Mcrae MD Unavailable [phone] Marcy Schroeder RN Unavailable [phone] Chelsea Barker RN Unavailable Unavail able Transplant Episode Kidney Candidate [facility] ([place], [place]) [facility] Center waitlisted on 05/07/2024 Marked as Inactive on 05/26/2024 Reason: Candidate requires multi-organ [place] only, isolated offers not accepted Kidney CoordinatorMarcy Schroeder RN Email: N/A Scores Score Value Updated Exceptions/Reas ons CPRA Not available EPTS (Calc) 55 01/20/2025 [place] Organ Diagnosis Organ Primary Contributory Kidney Other, 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
--- OUTSIDE RECORDS SUMMARY | 2025-01-20 11:34 | XMS_ITS | Clinical Summary ---
Author Organization [facility] Address [address] [place] [address] Phone Care Team Providers Care List Of First Job Ideas Name Role Phone Unavailable Primary Care Provider Unavailabl e Allergies No known active allergies Medications acetaminophen (TYLENOL) 325 mg tablet Take 325 mg by mouth every 8 hours. Active glucagon (BAQSIMI) 3 mg/spray [place], Non-Aerosol 1 [place]. GIVE 1 spray in one NOSTRIL ONE [...] 1:00 AM CDT Height 170.2 cm (5' 7) 04/02/2024 5:06 PM CDT Body Mass Index [...] STOOL Negative Negative 04/03/2024 3:27 AM CDT [facility] Stool STOOL SPECIMEN / Unknown Collection / Unknown 04/03/2024 1:23 AM CDT 04/03/2024 1:24 AM CDT us Marcos Newton MD BODY FLUIDS AND STOOLS Final R esult [facility] CLIA# [id number] [place] [address] * LIPID PANEL (04/03/2024 12:30 AM CDT) CHOLESTEROL 114 <200 mg/dL 04/03/2024 1:34 AM CDT [facility] TRIGLYCERIDE 62 <150 mg/dL 04/03/2024 1:34 AM CDT [facility] HDL 50 40 - 59 mg/dL 04/03/2024 1:34 AM CDT [facility] LDL CALCULATED 52 <100 mg/dL 04/03/2024 1:34 AM CDT [facility] NON-HDL CHOLESTEROL 64 <130 mg/dL 04/03/2024 1:34 AM CDT [facility] Blood Venipuncture / Unknown 04/03/2024 12:30 AM CDT 04/03/2024 1:04 AM CDT [facility] - 04/03/2024 1:34 AM CDT TOTAL [...] Newton MD CHEMISTRY ORDERABLES Final Res ult [facility] [id number] [place] [address] * (ABNORMAL) HEMOGLOBIN A1C (04/02/2024 6:29 PM CDT) HEMOGLOBIN A1C 6.5(H) <=5.6 % 04/02/2024 7:01 PM CDT [facility] EST. AVG GLUCOSE, A1C 140 mg/dL 04/02/2024 7:01 PM CDT [facility] Blood Venipuncture / Unknown 04/02/2024 6:29 PM CDT 04/02/2024 6:34 PM CDT [facility] LABORATORY SERVICES [facility] - 04/02/2024 7:01 PM CDT HGB A1C INTERPRETATION NORMAL: <5.7% PRE-DIABETES: 5.7 - 6.4% DIABETES: 6.5% OR GREATER us Marcos Newton MD CHEMISTRY ORDERABLES Final Res ult [facility] CLIA# [id number] [place] [address] from Last 3 Months or Most Recently Relevant to Health Maintenance Insurance Member Subscriber Plan / Payer (Ef fective 2024-Present) Name:Aleah Levine Relation to Subscriber:Self Name:Aleah Levine Payer ID:Not on file Group ID:[id number] Type:RX Medicare Part D Address: [address] Advance Directives For more information, please contact: [phone] * Full Code (Latest Code Status on File) Date Activated Date Inactivated Comments 04/02/2024 6:16 PM 04/06/2024 2:11 PM
--- OUTSIDE RECORDS SUMMARY | 2025-01-20 11:34 | XMS_ITS | Encounter Summary ---
Author Organization [facility] Address [address] [place] [address] Care Team Providers Care Head Operator Sulfide Name Role Phone Unavailable Primary Care Provider Unavailabl e Reason for Visit * Reason Onset Date Comments TR on CKD 04/02/2024 Spoke w/Dr. Mueller Stroke/CVA 04/02/2024 Spoke w/Gladys @ Dr. Anthony's exchange Encounter Details Date Type Department Care Team (Late st Contact Info) Description 04/02/2024 Telephone [facility] Emergency [address] [place] [address] [place] [id number] [place] [phone] TR on CKD (Spoke w/Dr. Mueller); [...]
== END 2025-01-20 10:00 | disposition home or self-care (01) ==
PROVIDERS: PCP Internal Medicine; Visit Provider Transplant Surgery
DX: N18.6 End stage renal disease (principal)
CPT/HCPCS: 36415

== ENCOUNTER 2025-02-17 13:53 | Outpatient (CLI) | payer OTHER, SELFPAY ==
--- OUTSIDE RECORDS SUMMARY | 2025-02-17 14:06 | XMS_ITS | Encounter Summary ---
Author Organization [facility] Address [address] [place] [address] Phone Care Team Providers Care Foot Piece Assembler Name Role Phone Maddy Romano MD Primary Care Provider Astrid Haq NP Unavailable Manas Ibarra MD Unavailable Zion Barton MD Unavailable Molina Charles MD Unavailable [phone] Inés Lemus RN Unavailable [phone] Karuna Maria OT Unavailable Unavaila Renu Paul NP Unavailable [phone] Eladio Mcrae MD Unavailable Marcy Schroeder RN Unavailable [phone] Briana Poe RN Unavailable Marina Le RN [...] on file Legal Sex Female 8:22 AM INJECTION MOLD TECHNICIAN Gender Identity Female 11/15/2021 2:30 AM [...] COVID: Suspected 09/24/2024 09/24/2024 09/24/2024 3:13 PM INJECTION MOLD TECHNICIAN documented as of this encounter Care Teams Foot Piece Assembler Relationship Specialty Start Date End Date Maddy Romano MD [address] [place] [address] PCP - General 09/28/16 Astrid Haq NP [address] [place], [place] [address] Nurse Practitioner Radiation Oncology 11/05/18 11/07/22 Manas Ibarra MD [address] [place], [place] [address] Referring Physician Thoracic Surgery 11/05/18 Zion Barton MD [address] [place], [place] [address] Radiation Oncologist Radiation Oncology 05/05/19 Molina Charles MD [address] [facility] [address] [place] [address] Referring Physician Transplant Hepatology 12/15/20 Inés Lemus, TYRA [address] [facility] [address] [place] [address] Customer Quality Engineer 10/31/21 5 Karuna Maria OT Occupational Therapist Occupational Therapy 09/20/22 Renu Treviño NP [address] [facility] [address] [place] [address] Nurse Practitioner Radiation Oncology 11/08/22 Eladio Mcrae MD [address] [place] [address] Referring Physician Obstetrics and Gynecology 11/15/22 Marcy Schroeder, RN [address] [place] [address] Customer Quality Engineer 04/27/24 Briana Poe TYRA [address] [facility] [address] [place] [address] SHOP Outpatient Steel Pourer Helper 04/30/24 05/28/24 Marina Le RN [address] [facility] [address] [place] [address] [facility] Outpatient Steel Pourer Helper 10/05/24 10/26/24 Chelsea Barker, seo specialistCustomer Quality Engineer 11/13/24 documented as of this encounter
--- OUTSIDE RECORDS SUMMARY | 2025-02-17 14:06 | XMS_ITS | Clinical Summary ---
Author Organization [facility] Address [address] [facility] [place] [address] Care Team Providers Care Filling Room Operator Name Role Phone Unavailable Primary Care Provider Unavailabl e Source Comments [facility],non-owned Affiliates and Associated Physician Practices is amultiple site organization consisting of ambulatory clinics and hospital sitesin [place], [place], [place] and [place]. This disclosure is being madepursuant to the Care Everywhere program and may not contain all information available regarding this patient. Last updated 18.[facility] Active Problems Problem Noted Date Diagnosed Date Decompensated hepatic cirrhosis 09/24/2024 Hepatic encephalopathy 04/01/2024 Cerebellar infarct 04/01/2024 Social History Tobacco Use Types Packs/Day Years Used Date Smoking Tobacco: Never Assessed Comments Unknown Sex and Gender Information Value Date Recorded Sex Assigned at Not on file Legal Sex Female 8:40 AM PULP HOUSE SUPERVISOR Gender Identity Not on file Sexual Orientation [...] SCREENING 1960 LIPID TESTING 1960 MAMMOGRAM 1960 HIV SCREENING 12/18/1975 HEPATITIS C SCREENING 12/13/1978 DTAP/TDAP/TD VACCINES (1 - Tdap) 12/18/1979 PNEUMOCOCCAL VACCINE 50+ (1 of 2 - PCV) 12/18/1979 PAP SMEAR 1981 ZOSTER VACCINE (1 of 2) 2010 HEPATITIS B VACCINE (1 of 3 - Risk 3-dose series) 2020 Respiratory Syncytial Virus (RSV) Vaccine Pt: or over 60 yrs (1 - Risk 60-74 years 1-dose series) 2020 COVID-19 VACCINE (2023-2 5 season) 2024 DEPRESSION SCREENING 08/12/2024 INFLUENZA VACCINE (#1) 2025 HIB VACCINE Aged Out No longer [...] patient's age to complete this topic Insurance [facility]
--- OUTSIDE RECORDS SUMMARY | 2025-02-17 14:06 | XMS_ITS | Encounter Summary ---
Author Organization [facility] Address [address] [place] [address] Care Team Providers Care Aircraft Part Assembler Name Role Phone Maddy Romano MD Primary Care Provider [phone] Manas Ibarra MD Unavailable Zion Barton MD Unavailable [phone] Molina Charles MD Unavailable [phone] Karuna Maria OT Unavailable Unavaila Renu Paul NP Unavailable [phone] Eladio Mcrae MD Unavailable [phone] Marcy Schroeder RN Unavailable [phone] Chelsea Barker RN Unavailable Unavail able Encounter Details Date Type Department Care Team (Latest Contact Info) Description 02/11/2025 Results Follow-Up [facility] Transplant Liver [address] [facility] [address] [place] [address] Chelsea Barker, RN Protime-INR, Comprehensive metabolic panel, eGFR Social History Tobacco Use Types Packs/Day Years Used Date Smoking Tobacco: Former Cigarettes 0.5 51 1 - 2020 Smokeless Tobacco: Never [facility] Utilities Answer Date Recorded In [...] any clubs o r organizations such as evangelical groups, unions, fraternal or athletic groups, or [...] medical appointments or from getting medications? No 02/2 11/2024 In the past 12 months, has l [...] any time in the past 12 m [facility], were you homeless or living in a usp (including now)? No 10/05/2024 Personal Safety Answer Date Recorded Have you ever been in or are you currently in a harmful physical or emotional relationship or is someone making you feel afraid or unsafe? Denies 12/14/2024 Comments No Sex and Gender Information Value Date Recorded Sex Assigned at Not on file Legal Sex Female 8:22 AM UNIT TENDER Gender Identity Female 11/15/2021 2:30 AM CDT [...] on filedocumented in this encounter Care Teams Aircraft Part Assembler Relationship Specialty Start Date End Date Maddy Romano MD [address] [place] [address] PCP - General 09/28/16 Manas Ibarra MD [address] [place] [address] Referring Physician Thoracic Surgery 11/05/18 Zion Barton MD [address] [place], [place] [address] Radiation Oncologist Radiation Oncology 05/05/19 Molina Charles MD 1 [facility] [address] [place] [address] Referring Physician Transplant Hepatology 12/15/20 Karuna Maria, OT Occupational Therapist Occupational Therapy 09/20/22 Renu Treviño NP [address] [facility] [address] [place] [address] Nurse Practitioner Radiation Oncology 11/08/22 Eladio Mcrae MD [address] [place] [address] Referring Physician Obstetrics and Gynecology 11/15/22 Marcy Schroeder, RN [address] [place] [address] Configuration Engineer 04/27/24 Chelsea Barker, rail detector car operatorConfiguration Engineer 11/13/24 documented as of this encounter
--- OUTSIDE RECORDS SUMMARY | 2025-02-17 14:06 | XMS_ITS | Clinical Summary ---
Author Organization [facility] Address [address] [place] [address] Care Team Providers Care International Marketing Executive Name Role Phone Maddy Romano MD Primary Care Provider [phone] Active Problems Problem Noted Date Diagnosed Date [...] patient's age to complete this topic Insurance [facility] Care Teams International Marketing Executive Relationship Specialty Start Date End Date Maddy Romano MD [address] [place] [address] PCP - General INTERNAL MEDICINE 01/16/23
--- OUTSIDE RECORDS SUMMARY | 2025-02-17 14:06 | XMS_ITS | Encounter Summary ---
Author Organization [facility] Address [address] [place] [address] Care Team Providers Care Special Service Representative Name Role Phone Maddy Romano MD Primary Care Provider [phone] Manas Ibarra MD Unavailable Zion Barton MD Unavailable Molina Charles MD Unavailable [phone] Inés Lemus RN Unavailable [phone] Karuna Maria OT Unavailable Unavaila Renu Paul NP Unavailable [phone] Eladio Mcrae MD Unavailable [phone] Marcy Schroeder RN Unavailable [phone] Briana Poe RN Unavailable [phone] Marina Le RN Unavailable [phone] Chelsea Barker RN Unavailable Unavail able Encounter Details Date Type Department Care Team (Late st Contact Info) Description 05/11/2024 Telephone [facility] [address] [place] [address] Ragini Wheeler, RN Social History [...] often do you attend chur ch or judaism services? Never 04/30/2024 Do you belong to any clubs o r organizations such as methodist groups, unions, fraternal or athletic groups, or [...] place to sleep or slept in a intermediate (including now)? No 12/31/2022 Housing Stability Vital [...] were you homeless or living in a intermediate (including now)? No 04/30/2024 Personal Safety Answer Date Recorded Have you ever been in or are you currently in a harmful physical or emotional relationship or is someone making you feel afraid or unsafe? Denies 04/21/2024 Comments No Sex and Gender Information Value Date Recorded Sex Assigned at Not on file Legal Sex Female 8:22 AM WAD LUBRICATOR Gender Identity Female 11/15/2021 2:30 AM CDT [...] COVID: Suspected 09/24/2024 09/24/2024 09/24/2024 3:13 PM WAD LUBRICATOR documented as of this encounter Care Teams Special Service Representative Relationship Specialty Start Date End Date Maddy Romano MD [address] [place] [address] PCP - General 09/28/16 Manas Ibarra MD [address] [place] [address] Referring Physician Thoracic Surgery 11/05/18 Zion Barton MD [address] [place] [address] Radiation Oncologist Radiation Oncology 05/05/19 Molina Charles MD 1 [facility] [address] [place] [address] Referring Physician Transplant Hepatology 12/15/20 Inés Lemus RN [address] [facility] [address] [place] [address] Trim Machine Operator 10/31/21 5 Karuna Maria, OT Occupational Therapist Occupational Therapy 09/20/22 Renu Treviño NP [address] [facility] [address] [place] [address] Nurse Practitioner Radiation Oncology 11/08/22 Eladio Mcrae MD [address] [place] [address] Referring Physician Obstetrics and Gynecology 11/15/22 Marcy Schroeder RN [address] [place] [address] Trim Machine Operator 04/27/24 Briana Poe RN [address] [facility] [address] [place] [address] SHOP Outpatient Pharmacy Scheduler 04/30/24 05/28/24 Marina Le, RN [address] [facility] [address] [place] [address] SHOP Outpatient Pharmacy Scheduler 10/05/24 10/26/24 Chelsea Barker, station operatorTrim Machine Operator 11/13/24 documented as of this encounter
--- OUTSIDE RECORDS SUMMARY | 2025-02-17 14:06 | XMS_ITS | Encounter Summary ---
Author Organization [facility] Address [address] [place] [address] Phone Care Team Providers Care Lap Winding Machine Operator Name Role Phone Maddy Romano MD Primary Care Provider Astrid Haq NP Unavailable [phone] Manas Ibarra MD Unavailable Zion Barton MD Unavailable Molina Charles MD Unavailable [phone] Inés Lemus RN Unavailable [phone] Karuna Maria OT Unavailable Unavaila Renu Paul NP Unavailable [phone] Eladio Mcrae MD Unavailable [phone] Marcy Schroeder RN Unavailable [phone] Briana Poe RN Unavailable Marina Le RN [...] on file Legal Sex Female 8:22 AM APPAREL PATTERN MAKER Gender Identity Female 11/15/2021 2:30 AM [...] COVID: Suspected 09/24/2024 09/24/2024 09/24/2024 3:13 PM APPAREL PATTERN MAKER documented as of this encounter Care Teams Lap Winding Machine Operator Relationship Specialty Start Date End Date Maddy Romano MD [address] [place] [address] PCP - General 09/28/16 Astrid Haq NP [address] [place], [place] [address] Nurse Practitioner Radiation Oncology 11/05/18 11/07/22 Manas Ibarra MD [address] [place], [place] [address] Referring Physician Thoracic Surgery 11/05/18 Zion Barton MD [address] [place], [place] [address] Radiation Oncologist Radiation Oncology 05/05/19 Molina Charles MD 1 [facility] [address] [place] [address] Referring Physician Transplant Hepatology 12/15/20 Inés Lemus, TYRA [address] [facility] [address] [place] [address] Appraiser Irrigation Tax 10/31/21 5 Karuna Maria OT Occupational Therapist Occupational Therapy 09/20/22 Renu Treviño NP [address] [facility] [address] [place] [address] Nurse Practitioner Radiation Oncology 11/08/22 Eladio Mcrae MD [address] [place] [address] Referring Physician Obstetrics and Gynecology 11/15/22 Marcy Schroeder, RN [address] [place] [address] Appraiser Irrigation Tax 04/27/24 Briana Poe TYRA [address] [facility] [address] [place] [address] SHOP Outpatient Paint Technician 04/30/24 05/28/24 Marina Le RN [address] [facility] [address] [place] [address] [facility] Outpatient Paint Technician 10/05/24 10/26/24 Chelsea Barker, check processing clerkAppraiser Irrigation Tax 11/13/24 documented as of this encounter
--- OUTSIDE RECORDS SUMMARY | 2025-02-17 14:07 | XMS_ITS | Clinical Summary ---
Author Organization [facility] Address [address] [place] [address] Phone Care Team Providers Care Air Traffic Control Specialist Center Name Role Phone Unavailable Primary Care Provider Unavailabl e Allergies No known active allergies Medications acetaminophen (TYLENOL) 325 mg tablet Take 325 mg by mouth every 8 hours. Active glucagon (BAQSIMI) 3 mg/spray [place], Non-Aerosol 1 [place]. GIVE 1 spray in one NOSTRIL ONE [...] Encounters Date Type Department Care Team Description 01/26/2025 External Device Data ST[facility] ABSTRACTION Provider, Abstract 12/08/2024 External Device Data [facility] ABSTRACTION Provider, [...] 2020 BREAST CANCER SCREENING 12/06/2022 12/06/2021, 05/15 DTAP/TDAP/TD VACCINES (2 - T d or Tdap) 03/24/2024 03/24/2014 COVID-19 Vaccine (2 - 2023-2 5 season) 2024 10/17/2020 DIABETES HBA1C Q 6 MONTHS 10/03/20242023, 02/14/2024, 09/27/2023 INFLUENZA VACCINE (#1) 2025 , 04/29/2020, 05/01/2019, Additional history exists FIT/FOBT Q 1 year 04/03/2025 04/03/2024 LDL CHOLESTEROL ANNUAL 04/03/2025 04/03/2024, 08/22/ 2024 COLORECTAL SCREENING 05/30/2032 05/30/2022, 05/30/2022, 10/26/2019 Colorectal [...] STOOL Negative Negative 04/03/2024 3:27 AM CDT [facility] [employer] [facility] Stool STOOL SPECIMEN / Unknown Collection / Unknown 04/03/2024 1:23 AM CDT 04/03/2024 1:24 AM CDT us Marcos Newton MD BODY FLUIDS AND STOOLS Final R esult [facility] CLIA# [id number] [place] [address] * LIPID PANEL (04/03/2024 12:30 AM CDT) CHOLESTEROL 114 <200 mg/dL 04/03/2024 1:34 AM CDT [facility] [employer] [facility] TRIGLYCERIDE 62 <150 mg/dL 04/03/2024 1:34 AM CDT [facility] [employer] [facility] HDL 50 40 - 59 mg/dL 04/03/2024 1:34 AM CDT [facility] LDL CALCULATED 52 <100 mg/dL 04/03/2024 1:34 AM CDT [facility] NON-HDL CHOLESTEROL 64 <130 mg/dL 04/03/2024 1:34 AM CDT [facility] Blood Venipuncture / Unknown 04/03/2024 12:30 AM CDT 04/03/2024 1:04 AM CDT [facility] - 04/03/2024 1:34 AM CDT TOTAL [...] Newton MD CHEMISTRY ORDERABLES Final Res ult [facility] [id number] [place] [address] * (ABNORMAL) HEMOGLOBIN A1C (04/02/2024 6:29 PM CDT) HEMOGLOBIN A1C 6.5(H) <=5.6 % 04/02/2024 7:01 PM CD[address] [facility] [employer] [facility] EST. AVG GLUCOSE, A1C 140 mg/dL 04/02/2024 7:01 PM CDT [facility] Blood Venipuncture / Unknown 04/02/2024 6:29 PM CDT 04/02/2024 6:34 PM CDT [facility] [employer] [facility] - 04/02/2024 7:01 PM CDT HGB A1C INTERPRETATION NORMAL: <5.7% PRE-DIABETES: 5.7 - 6.4% DIABETES: 6.5% OR GREATER us Marcos Newton MD CHEMISTRY ORDERABLES Final Res ult [facility]# [id number] [place] [address] from Last 3 Months or Most Recently Relevant to Health Maintenance Insurance [facility] [id number] RX [employer] Member Subscriber Plan / Payer (Ef fective 2024-Present) Name:Aleah Levine Relation to Subscriber:Self Name:Aleah Levine Payer ID:Not on file Group ID:[id number] Type:RX Medicare Part D Address: [address] Advance Directives For more information, please contact: [phone] * Full Code (Latest Code Status on File) Date Activated Date Inactivated Comments 04/02/2024 6:16 PM 04/06/2024 2:11 PM
--- OUTSIDE RECORDS SUMMARY | 2025-02-17 14:07 | XMS_ITS | Encounter Summary ---
Author Organization [facility] Address [address] [place] [address] Phone Care Team Providers Care Launchman Name Role Phone Maddy Romano MD Primary Care Provider Astrid Haq NP Unavailable Manas Ibarra MD Unavailable Zion Barton MD Unavailable Molina Charles MD Unavailable [phone] Inés Lemus RN Unavailable [phone] Karuna Maria OT Unavailable Unavaila Renu Paul NP Unavailable [phone] Eladio Mcrae MD Unavailable [phone] Marcy Schroeder RN Unavailable [phone] Briana Poe RN Unavailable Marina Le RN [...] on file Legal Sex Female 8:22 AM LARRY OPERATOR Gender Identity Female 11/15/2021 2:30 AM [...] COVID: Suspected 09/24/2024 09/24/2024 09/24/2024 3:13 PM LARRY OPERATOR documented as of this encounter Care Teams Launchman Relationship Specialty Start Date End Date Maddy Romano MD [address] [place] [address] PCP - General 09/28/16 Astrid Haq NP [address] [place] [address] Nurse Practitioner Radiation Oncology 11/05/18 11/07/22 Manas Ibarra MD [address] [place] [address] Referring Physician Thoracic Surgery 11/05/18 Zion Barton MD [address] [place] [address] Radiation Oncologist Radiation Oncology 05/05/19 Molina Charles MD [address] [place] [address] [address] [place] [address] Referring Physician Transplant Hepatology 12/15/20 Inés Lemus, TYRA [address] [facility] [address] [place] [address] Fire Services Plumber 10/31/21 5 Karuna Maria, OT Occupational Therapist Occupational Therapy 09/20/22 Renu Treviño NP [address] [facility] [address] [place] [address] Nurse Practitioner Radiation Oncology 11/08/22 Eladio Mcrae MD [address] [place] [address] Referring Physician Obstetrics and Gynecology 11/15/22 Marcy Schroeder RN [address] [place] [address] Fire Services Plumber 04/27/24 Briana Poe, TYRA [address] [address] [facility] Outpatient Typing Secretary 04/30/24 05/28/24 Marina Le RN [address] [address] [facility] Outpatient Typing Secretary 10/05/24 10/26/24 Chelsea Barker, strong nitric operatorFire Services Plumber 11/13/24 documented as of this encounter
--- OUTSIDE RECORDS SUMMARY | 2025-02-17 14:07 | XMS_ITS | Encounter Summary ---
Author Organization [facility] Address [address] [place] [address] Phone Care Team Providers Care Production Recovery Operator Name Role Phone Maddy Romano MD Primary Care Provider [phone] Astrid Haq NP Unavailable Manas Ibarra MD Unavailable Zion Barton MD Unavailable Molina Charles MD Unavailable [phone] Inés Lemus RN Unavailable [phone] Karuna Maria OT Unavailable Unavaila Renu Paul NP Unavailable Eladio Mcrae MD Unavailable Marcy Schroeder RN Unavailable [phone] Briana Poe RN Unavailable Marina Le RN Unavailable [phone] Chelsea Barker RN Unavailable Unavail able Encounter [...] on file Legal Sex Female 8:22 AM HEALTH DIAGNOSTICS TEACHER Gender Identity Female 11/15/2021 2:30 AM [...] COVID: Suspected 09/24/2024 09/24/2024 09/24/2024 3:13 PM HEALTH DIAGNOSTICS TEACHER documented as of this encounter Care Teams Production Recovery Operator Relationship Specialty Start Date End Date Maddy Romano MD [address] [place] [address] PCP - General 09/28/16 Astrid Haq NP [address] [place] [address] Nurse Practitioner Radiation Oncology 11/05/18 11/07/22 Manas Ibarra MD [address] [place] [address] Referring Physician Thoracic Surgery 11/05/18 Zion Barton MD [address] [place] [address] Radiation Oncologist Radiation Oncology 05/05/19 Molina Charles MD [address] [facility] [address] [place] [address] Referring Physician Transplant Hepatology 12/15/20 Inés Lemus RN [address] [facility] [address] [place] [address] Absorption Operator 10/31/21 5 Karuna Maria, OT Occupational Therapist Occupational Therapy 09/20/22 Renu Treviño NP [address] [facility] [address] [place], [place] [id number] Nurse Practitioner Radiation Oncology 11/08/22 Eladio Mcrae MD [address] [place], [place] [id number] Referring Physician Obstetrics and Gynecology 11/15/22 Marcy Schroeder, RN [address] [place] [address] Absorption Operator 04/27/24 Briana Poe RN [address] [facility] [address] [place] [address] SHOP Outpatient Set And Exhibit Designer 04/30/24 05/28/24 Marina Le RN [address] [facility] [address] [place] [address] SHOP Outpatient Set And Exhibit Designer 10/05/24 10/26/24 Chelsea Barker, open claims representativeAbsorption Operator 11/13/24 documented as of this encounter
--- OUTSIDE RECORDS SUMMARY | 2025-02-17 14:07 | XMS_ITS | Referral Summary ---
Author Organization [facility] Address [address] [place] [address] Care Team Providers Care Political Director Name Role Phone Maddy Romano MD Primary Care Provider Manas Ibarra MD Unavailable Zion Barton MD Unavailable Molina Charles MD Unavailable [phone] Karuna Maria OT Unavailable Unavaila Renu Paul NP Unavailable [phone] Eladio Mcrae MD Unavailable [phone] Marcy Schroeder RN Unavailable [phone] Chelsea Barker RN Unavailable Unavail able Encounters Date Type Department Care Team Description 5 Telephone [facility] Transplant Liver [address] [facility] 3409 Mailstop [phone] [place] [address] Chelsea Barker, TYRA 5 Results Follow-Up [facility] Transplant Liver [address] [facility] 3401 Mailstop [phone] [place] [address] Chelsea Barker, TYRA Protime-INR, Comprehensive metabolic panel, eGFR 5 Telephone [facility] Transplant Liver [address] [facility] [address] [place] [address]-71-[address] [place] [address] Chelsea Barker, TYRA 5 4:30 PM CDT Lab [facility] [address] [place] [phone] 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 5 Telephone [facility] Transplant Liver [address] [place] [address] [place] [address]-55-[address] [place] [address] Chelsea Barker, TYRA 5 Telephone [facility] Transplant Liver [address] [place] [address]-55-[address] [place] [address] Chelsea Barker RN 5 10:00 AM CDT - 5 11:59 PM CDT Hospital [address] [address] ESRD (end stage renal diseas e) (HCC) Discharge Disposition: Discharge to home or self care 5 Telephone [facility] Transplant Liver [address] [place] [address] [place] [phone] [place] [address] Chelsea Barker RN 5 3:25 PM CDT Lab [facility] ([facility]) [address] [place] [phone] Cirrhosis of liver without ascites, unspecified hepatic cirrhosis type (HCC) 5 Telephone [facility] Transplant Liver 45[address] [facility] [address] [place] [phone] [place] [address] Chelsea Barker, TYRA 5 Telephone [facility] Endocrinology Metabolism and Lipid [address] [facility] 13th [place] [address] [place] [phone] Katie Yates RN 5 Telephone [facility] Transplant Liver [address] [facility] [address] Mailstop [phone] [place] [address] Chelsea Barker, TYRA 5 Results Follow-Up [facility] Transplant Liver 45[address] [facility] 340 Mailstop [phone] [place] [address] Chelsea Barker RN Comprehensive metabolic panel 5 10:00 AM CDT - 5 11:59 PM CDT [address] [address] ESRD (end stage renal diseas e) (HCC) Discharge Disposition: Discharge to home or self care 5 Telephone [facility] Transplant Liver 45[address] [facility] 340 Mailstop [phone] [place] [address] Chelsea Barker RN 5 Telephone [facility] Transplant Liver [address] [facility] 340 Mailstop [phone] [place] [address] Chelsea Barker RN 5 Results Follow-Up [facility] Transplant Liver 45[address] [facility] [address] [place], [place] [address]op [phone] [place] [address] Chelsea Barker RN EGD 5 Telephone [facility] Transplant Liver [address] [place] [address] 340 Mailop [phone] [place] [address] Chelsea Barker RN 5 9:15 AM CDT - 5 9:45 AM CDT Surgery [facility] [address] [place] [id number] Mercy Adler MD PhD ESOPHAGOGASTRODUODENOSCOPY 5 9:11 AM CDT Anesthesia Event [facility] [address] [place] [address] Ezequiel Waldron MD 5 8:08 AM CDT - 5 10:14 AM CDT Hospital Encounter [facility] [address] [place] [address] Mercy Adler MD PhD Discharge Disposition: Discharge to home or self care 5 Telephone [facility] Transplant Liver [address] [facility] 3401 Mailstop [phone] [place] [address] Chelsea Barker RN 5 Results Follow-Up [facility] Gastroenterology [address] [place] [address] 12th [place] [phone] Molina Charles MD Protime-INR, Comprehensive metabolic panel, eGFR, Additional followed-up results: 3 5 3:20 PM CDT Lab [facility] ([facility]) [address] [place] [phone] 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 5 Telephone [facility] Gastroenterology [address] [place] [address] 12th [place] [address] [place] [phone] Marina Estrella LPN GI Preprocedure 5 Telephone [facility] Gastroenterology [address] [place] [address] Medicine 12th [place] [address] [place] [phone] Kimberley Goodman cancel procedure 5 Telephone [facility] Transplant Liver 45[address] [facility] 3401 Mailstop [phone] [place] [address] Chelsea Barker RN 5 10:25 AM CDT Lab [facility] Advanced [facility] ([facility]) [address] [place] [phone] 5 10:10 AM CDT Lab [facility] Advanced [facility] ([facility]) [address] [place] [phone] Type 2 diabetes mellitus wit h stage 3a chronic kidney disease, with long-term current use of insulin (HCC); 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 5 9:00 AM CDT Office Visit [facility] Gasteroenterology [address] [facility] 12th Floor [address] [place] [phone] Taiwo Vázquez MD Portosystemic encephalopathy (HCC) (Primary [...] to 44.9 in adult; Hepatic encephalopathy (HCC) 5 Telephone [facility] Specialty Services [address] [place] [phone] Tonya Malcolm RN GI Preprocedure 5 Orders Only [facility] 1 [facility] 1st [place] [phone] Timothy Pardo MD ESRD (end stage renal disease) (HCC) 5 2:00 PM CDT - 5 11:59 PM CDT Hospital Encounter [facility] [address] [place], [place] [phone] Discharge Disposition: Discharge to home or self care from Last 3 Months Allergies Active Allergy Reactions Criticality Noted Date Comments Moxifloxacin Itching Low 10/15/2019 Sulfa (Sulfonamide Antibiotics) Hives Medium Medications acetaminophen (TYLENOL) 325 mg tabletIndications: Pain Take 2 tablets (650 mg total) by mouth every 8 (eight) hours 02/06/20 23 Active ondansetron (ZOFRAN) 4 mg tablet Take [...] stage 3a chronic kidney disease, unspecified whether ad terminal makeup operator insulin [...] DAY 200 each 11 09/23/19 25 Active pen needle, diabetic (Pen Needle) 32 gauge x 5/32 needle Use as directed once a day. 100 each 10/02/19 25 Active blood-glucose meter,continuous ([employer] G7 Handkerchief Sample Clerk) misc Use as directed. 1 each 10/02/19 [...] mL 11 10/15/19 25 Active blood-glucose sensor ([employer] G7 Sensor) device Use as directed. Change sensor every 10 days. 3 each 10/20/19 25 Active lactulose solution 10 gram/15mLIndicatio ns:Portosystemic encephalopathy (HCC) Take 30 mL (20 g total) by mouth 3 (three) times a day 3785 mL 3 11/26/19 25 025 Active fluconazole (DIFLUCAN) 100 mg tablet Take 1 tablet (100 mg total) by mouth daily 10/08/19 25 Active Xifaxan 550 mg tabletIndications: Hepatic encephalopathy (HCC),Cirrhosis of liver without ascites, unspecified hepatic cirrhosis type (HCC) TAKE 1 TABLET(550 MG) BY MOUTH TWICE DAILY 60 tablet 11 12/23/19 25 Active insulin glargine (LANTUS) 100 unit/mL (3 mL) pen for injection Inject 44 Units under the skin nightly 45 mL 3 12/19/19 25 Active insulin lispro (HumaLOG, ADMELOG) 100 unit/mL pen for injection Inject 8 units with meals tid, plus sliding scale up to 40u daily 15 mL 5 01/28/20 25 Active insulin lispro (ADMELOG) 100 unit/mL [...] Scale Insulin Instructions. 15 mL 10/02/19 25 025 Discontin ued(Dupli marcia order) Active Problems Problem Noted Date Diagnosed Date [...] 10/10/2022 Assessment & Plan (10/12/2022 12:20 PM DIRECTOR SALES SUPPORT): Episode of atrial flutter overnight with RVR up to 140s. Patient asymptomatic, normotensive. IV metoprolol X2 given to achieve rate control. [id number] vasc score of 3. TTE from 09/03 without valvular abnormalities. No new episodes today. Lytes within normal limits. - Continue teletypesetter monitor - Continue home dose of metoprolol 25mg BID - Given that patient might be listed for transplant, hepatology would prefer to avoid apixaban. Lovenox is not ideal given her platelet count less than 100. Her INR is too high to consider warfarin. Anemia 10/05/2022 Assessment & Plan (10/11/2022 12:28 PM DIRECTOR SALES SUPPORT): - Hgb has down trended from 8 [...] 10/05/2022 Assessment & Plan (10/11/2022 12:45 PM DIRECTOR SALES SUPPORT): -Continue home dose of metoprolol 25mg BID Hepatic encephalopathy 07/31/2022 Assessment & Plan (03/06/2023 5:49 PM CDT): Good control on current medical management. No changes indicated. Assessment & Plan (08/03/2022 1:05 PM DIRECTOR SALES SUPPORT): Pt with hx of LYONS cirrhosis presenting with progressively worsening mental status over past several weeks. On initial examination patient was AAOx1, on subsequent exam she is now AAOx2 with appropriate responses. NH3 75. Unfortunately no safe area for bedside diagnostic paracentesis. Slurred speech and concerns for swallowing. ABALONE SHELLER completed swallow study and normal. Head CT: No acute intracranial abnormality. -Awaiting Liver MRI -Increased Lactulose to 4x daily (only 1 stool on 08/02) - Rifaximin and Lactulose (goal 3-5 bowel movements) - Fall precautions. - PT/OT: Home with assistance. Assessment & Plan (08/02/2022 2:34 PM DIRECTOR SALES SUPPORT): Pt with hx of LYONS cirrhosis presenting with progressively worsening mental status over past several weeks. On initial examination patient was AAOx1, on subsequent exam she is now AAOx2 with appropriate responses. NH3 75. Unfortunately no safe area for bedside diagnostic paracentesis. Slurred speech and concerns for swallowing. ABALONE SHELLER completed swallow study and normal. Head CT: No acute intracranial abnormality. - Rifaximin and Lactulose (goal 3-5 bowel movements) - Fall precautions. - PT/OT: Home with assistance. - ABALONE SHELLER completed bedside swallow and Normal Assessment & Plan (08/01/2022 3:28 PM DIRECTOR SALES SUPPORT): Pt with hx of LYONS cirrhosis presenting [...] concerns for swallowing. - Fall precautions. - ABALONE SHELLER/PT/OT Consults. Assessment & Plan (08/01/2022 4:16 AM DIRECTOR SALES SUPPORT): Pt with hx of LYONS cirrhosis presenting [...] mellitus Assessment & Plan (10/12/2022 2:58 PM DIRECTOR SALES SUPPORT): Previously on dose reduced insulin regimen at OSH 20u lantus, 7u tid lispro + ssi. - Her blood sugars were initially on the lower side (90-100) in setting of poor po intake and TR. Continue SSI only for now and will uptitrate as needed. - Continue Lantus 10u/daily + lispro 4TID Assessment & Plan (08/03/2022 1:09 PM DIRECTOR SALES SUPPORT): Home regimen of toujeo 42 units + SSI. -Lantus, Lispro TID AC and SSI -No Juice Diet -Consistent Carb+ 2gm NA diet. -CTM BGL Assessment & Plan (08/02/2022 2:38 PM DIRECTOR SALES SUPPORT): Home regimen of toujeo 42 units + SSI. -Lantus, Lispro TID AC and SSI -No Juice Diet -Consistent Carb+ 2gm NA diet. -CTM BGL Assessment & Plan (08/01/2022 3:26 PM DIRECTOR SALES SUPPORT): Home regimen of toujeo 42 units + SSI. Given TR and decreased PO intake, insulin regimen reduced to Lantus 20units. - Continue on 2g Na + DM2 diet - CTM BGL Assessment & Plan (08/01/2022 4:17 AM DIRECTOR SALES SUPPORT): Home regimen of toujeo 42 units + [...] (10/22/2022): Added automatically from request for surgery [id number] Volume overload 10/06/2022 05/29/2024 Assessment & Plan (10/10/2022 1:09 PM DIRECTOR SALES SUPPORT): In the setting of LYONS cirrhosis. Diuretics [...] of breath 10/02/2022 07/15/20 Esophageal dysphagia 08/22/2022 024 Overview (08/22/2022): Added automatically from request for surgery [id number] Portal vein thrombosis 08/01/202208/22 Assessment & Plan (08/03/2022 1:09 PM DIRECTOR SALES SUPPORT): -Apixaban 2.5mg BID Assessment & Plan (08/02/2022 2:39 PM DIRECTOR SALES SUPPORT): -Apixaban 2.5mg BID Assessment & Plan (08/01/2022 3:27 PM DIRECTOR SALES SUPPORT): -Apixaban 2.5mg BID Assessment & Plan (08/01/2022 4:17 AM DIRECTOR SALES SUPPORT): Continue home apixaban LYONS (nonalcoholic steatohepatitis) 11/02/2021 07/15/2024 Abnormal mammogram of right breast 11/02/2020 08/22/2022 Preop cardiovascular exam 09/23/2019 Overview (09/23/2019): Added automatically from request for surgery [id number] Colon cancer screening 04/21/201908/22 Overview (04/21/2019): Added automatically from request for surgery [id number] Esophageal varices without bleeding (CMS/HCC) 04/21/20 19 08/22/2022 Overview (04/21/2019): Added automatically from request for surgery [id number] Steatosis of liver 05/20/2017 long-term current use of ant icoagulant therapy 07/26/2016 [...] Influenza, Trivalent, Preser vative Free, Intramuscular 05/29/2013 LifeBlinx (J&J) SARS-CoV-2 Vaccination 10/17/2020 Pneumococcal Conjugate PCV 13 05/26/2015 Pneumococcal Polysaccharide PPV23 03/24/2014 RSV Vaccine, Pref, Recombina nt, Subunit, Adjuvanted, PF, IM (Arexvy) 12/18/2023 Tdap 03/24/2014 ZOSTER Recombinant 02/17/2020,05/29/2019 Social History Tobacco Use Types Packs/Day Years Used Date Smoking Tobacco: Former Cigarettes 0.5 51 1 970 - 2020 Smokeless Tobacco: Never Tobacco Cessation:Counseling Given: Not Answered [facility] Utilities Answer Date Recorded In the [...] often do you attend chur ch or protestant services? Never 10/05/2024 Do you belong to [...] any time in the past 12 m [facility], were you homeless or living in a nursing home (including now)? No 10/05/2024 Personal Safety Answer Date Recorded Have you ever been in or are you currently in a harmful physical or emotional relationship or is someone making you feel afraid or unsafe? 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] CDT ESRD (end stage renal disease) (HCC) PAP AND HIGH RISK HPV, REFLE X TO GENOTYPING Routine 04/28/2024 10:41 AM CDT SCREENING MAMMOGRAM BILATERA L W PAL IP Routine 04/27/2024 1:55 PM CDT LIPID PANEL Routine 04/22/2024 12:58 AM CDT HEPATITIS C ANTIBODY Routine 06/16/2023 6:09 AM DIRECTOR SALES SUPPORT COLONOSCOPY 05/30/2022 9:28 AM CDT ALBUMIN CREATININE RATIO, URINE Routine 03/01/2021 2:45 PM CDT Type 2 diabetes mellitus without complication, unspecified whether assisted insulin use (HCC) from Last 3 Months or Most Recently Relevant to Health Maintenance Results * (ABNORMAL) eGFR (02/10/2025 2:13 PM CDT) eGFR 34(L) >=60 mL/min/1. 73 m2 Comment: [...] interpretive data was last reviewed 2021. Blood 02/10/2025 2:13 PM CDT 02/10/2025 3:03 PM CDT Taiwo Vázquez MD LAB BLOOD ORDERABLES Fin al Result Performing Organization Address [facility] de Phone Number [facility] [place] [address] * (ABNORMAL) Protime-INR (02/10/2025 2:13 PM CDT) PT 14.8(H) 9.7 - 13.0 sec INR 1.36(H) 0.90 - 1.20 [facility] Comment: Interpretive data Oral anticoagulant therapeutic ranges: Venous thromboembolism prophylaxis or treatment: 2.0-3.0 CARDIOLOGY Standard range: 2.0-3.0 High-intensity range: 2.5-3.5 Refer to indication-specific guidelines for appropriate target ranges for prosthetic heart valve replacement. Current interpretive data was last revised on 2019. Blood 02/10/2025 2:13 PM CDT 02/10/2025 2:55 PM CDT Taiwo Vázquez MD LAB BLOOD ORDERABLES Fin al Result Performing Organization Address [facility] de Phone Number [facility] [place] [address] * (ABNORMAL) Comprehensive metabolic panel (02/10/2025 2:13 PM CDT) Sodium 142 135 - 145 mmol/L Potassium, pl 3.9 3.3 - 4.9 mmol/L [facility] Chloride 105 97 - 110 mmol/L [facility] CO2 31 22 - 32 mmol/L [facility] Anion gap 6 2 - 15 mmol/L [facility] BUN 16 6 - 25 mg/dL [facility] Creatinine 1.68(H) 0.60 - 1.10 mg/dL [facility] Glucose 119 70 - 199 mg/dL [facility] Comment: Interpretive Data Fasting glucose [...] interpretive data was last revised 2022. Calcium 8.8 8.5 - 10.3 mg/dL [facility] Bilirubin, total 1.6(H) 0.1 - 1.2 mg/dL [facility] Protein, pl 5.9(L) 6.5 - 8.5 g/dL [facility] Albumin 3.2(L) 3.5 - 5.0 g/dL [facility] Alk phos 99 40 - 130 Units/L [facility] ALT 20 7 - 45 Units/L [facility] AST 38 10 - 45 Units/L [facility] Blood 02/10/2025 2:13 PM CDT 02/10/2025 3:03 PM CDT us Taiwo Vázquez MD LAB BLOOD ORDERABLES Fin al Result [facility] [place] [address] * HLA Antibody Screen by PRA or SAB per Schedule (Class I and Class II) (01/20/2025 10:00 AM CDT) Blood 01/20/2025 10:0 0 AM CDT Narrative [facility] - DIRECTOR SALES SUPPORT Sample received in lab. Single Antigen Antibody Screen ordered. Timothy Pardo MD LAB BLOOD ORDERABL ES Final Result [facility] * HLA Antibody Screen - SAB (Class I and Class II) (01/20/2025 10:00 AM CDT) Class I Treatment EDTA [facility] Class I Dilution 1:1 [facility] Class I Tested Date 01/25/2025 [facility] Class I Result Positive [facility] Class I CPRA 64 [facility] Class I Increased Risk Bw4 [facility] Class I Moderate Risk A23 [facility] Class I Low Risk A24, A32; B13, B27, B38, B44, B45, B47, B49, B51, B52, B53, B57, B58, B59, B60, B63, B67, B77 [facility] Class I Reportable Comments Bw4 pattern present. [facility] Class II Treatment EDTA [facility] Class II Dilution 1:1 [facility] Class II Tested Date 01/25/2025 [facility] Class II Result Positive [facility] Class II CPRA 31 [facility] Class II Moderate Risk DR1; DPB1*01:01 [facility] Class II Low Risk DR1, DR10, DR12, DR52 [facility] 01/20/2025 10:0 0 AM CDT 01/26/2025 9:06 AM CDT Narrative [facility] - 01/26/2025 9:06 AM CDT Single-antigen HLA antibody screen is performed on serum samples using a method developed and validated by the [facility] HLA laboratory based on an FDA-approved IVD kit (LABScreen Single-Antigen, [employer], [place], [place]). All patient serum samples are pretreated with EDTA before the screen to prevent complement interference. Additional serum treatments, such as adsorption and DTT treatment, may be performed as indicated. Interpretive comments: Low risk: MFI [id number]. Moderate risk: MFI 3523-7178. Increased risk: MFI >/= 5000. The presence [...] antigens to avoid. Testing performed at the [facility], [address] [place] [address], 5th floor, [place], [address]. [place] # [id number]. Rani Smith, Ph.D., Customer Service Trainer, HLA Laboratory Aurelio Palafox M.D., Ph.D., Instrument And Electrical Technician, [facility] Norma Talamantes, Ph.D., CLIA Instrument And Electrical Technician, [facility] Current methodology and interpretive comments last revised on 09/06/2022. us Timothy Pardo MD LAB BLOOD ORDERABL ES Final Result [facility] * (ABNORMAL) eGFR (01/11/2025 1:08 PM CDT) [...] BLOOD ORDERABLES Final Result Performing Organization Address [facility] de Phone Number CHARISSA [facility] [place] [address] * (ABNORMAL) Protime-INR (01/11/2025 1:08 PM CDT) PT 15.8(H) 9.7 - 13.0 sec INR 1.45(H) 0.90 - 1.20 [facility] Comment: Interpretive data Oral anticoagulant therapeutic ranges: Venous thromboembolism prophylaxis or treatment: 2.0-3.0 CARDIOLOGY Standard range: 2.0-3.0 High-intensity range: 2.5-3.5 Refer to indication-specific guidelines for appropriate target ranges for prosthetic heart valve replacement. Current interpretive data was last revised on 2019. Blood 01/11/2025 1:08 PM CDT 01/11/2025 1:45 PM CDT us Molina Charles MD LAB BLOOD ORDERABLES Final Result Performing Organization Address [facility]/State/ZIP Co de Phone Number CHARISSA DUNNE [facility] [place] [address] * (ABNORMAL) Comprehensive metabolic panel (01/11/2025 1:08 PM CDT) Sodium 141 135 - 145 mmol/L Potassium, pl 3.6 3.3 - 4.9 mmol/L [facility] Chloride 105 97 - 110 mmol/L [facility] CO2 29 22 - 32 mmol/L [facility] Anion gap 7 2 - 15 mmol/L [facility] BUN 17 6 - 25 mg/dL [facility] Creatinine 1.56(H) 0.60 - 1.10 mg/dL [facility] Glucose 150 70 - 199 mg/dL [facility] Comment: Interpretive Data Fasting glucose [...] 2022. Calcium 8.7 8.5 - 10.3 mg/dL [facility] Bilirubin, total 1.9(H) 0.1 - 1.2 mg/dL [facility] Protein, pl 6.4(L) 6.5 - 8.5 g/dL [facility] Albumin 3.2(L) 3.5 - 5.0 g/dL [facility] Alk phos 97 40 - 130 Units/L [facility] ALT 17 7 - 45 Units/L [facility] AST 32 10 - 45 Units/L [facility] Blood 01/11/2025 1:08 PM CDT 01/11/2025 1:45 PM CDT Molina Charles MD LAB BLOOD ORDERABLES Final Result CHARISSA DUNNE [facility] [place] [address] * HLA Antibody Screen by PRA or SAB per Schedule (Class I and Class II) (12/15/2024 10:00 AM CDT) Blood 12/15/2024 10:0 0 AM CDT Narrative [employer] - DIRECTOR SALES SUPPORT Sample received in lab and stored. No testing performed at this time. us Timothy Pardo MD LAB BLOOD ORDERABL ES Final Result NING * (ABNORMAL) Comprehensive metabolic panel (12/15/2024) SCRIBED [...] Female Attending MD: Mercy Adler M.D. Room: [facility]OOK [facility] 03 Note Status: Finalized [...] and oxygen saturations were monitored continuously. The [id number] was introduced through the mouth, and advanced [...] - Repeat upper endoscopy in 2 years [facility]. - Return to liver transplant clinic as [...] was last revised on 2014. POC Performer [id number] CHARISSA ELIAS POC Device Number [id number] CHARISSA ELIAS Blood 12/14/2024 8:56 AM CDT 12/14/2024 8:56 AM CDT us Mercy Adler MD PhD LAB POCT ORDER RAVEN - DEVICE Final Result Performing Organization Address City/[facility]/ZIP Co de Phone Number CHARISSA DUNNECH [address] [facility]. [place] [address] * (ABNORMAL) eGFR (12/04/2024 1:50 PM CDT) [...] MD LAB BLOOD ORDERABLES Fin al Result [facility] [place] [address] * (ABNORMAL) Differential, auto (12/04/2024 1:50 PM CDT) Neutrophil abs 2.07 1.50 - 6.50 K/cumm Imm gran abs 0.01 0.00 - 0.10 K/cumm [facility] Lymphocyte abs 0.76(L) 0.80 - 3.30 K/cumm [facility] Monocyte abs 0.28 0.20 - 0.80 K/cumm [facility] Eosinophil abs 0.53(H) 0.00 - 0.50 K/cumm [facility] Basophil abs 0.02 0.00 - 0.10 K/cumm [facility] Neutrophil pct 56.5 % [facility] Comment: Interpretive Data Percent cell count reference ranges are not reported, since discordance with absolute values may lead to misinterpretation of CBC data. Current Interpretive Data was last revised on 2017. Imm gran pct 0.3 % [facility] Comment: Interpretive Data Percent cell count reference ranges are not reported, since discordance with absolute values may lead to misinterpretation of CBC data. Current Interpretive Data was last revised on 2017. Lymphocyte pct 20.7 % [facility] Comment: Interpretive Data Percent cell count reference ranges are not reported, since discordance with absolute values may lead to misinterpretation of CBC data. Current Interpretive Data was last revised on 2017. Monocyte pct 7.6 % [facility] Comment: Interpretive Data Percent cell count reference ranges are not reported, since discordance with absolute values may lead to misinterpretation of CBC data. Current Interpretive Data was last revised on 2017. Eosinophil pct 14.4 % [facility] Comment: Interpretive Data Percent cell count reference ranges are not reported, since discordance with absolute values may lead to misinterpretation of CBC data. Current Interpretive Data was last revised on 2017. Basophil pct 0.5 % [facility] Comment: Interpretive Data Percent cell count reference ranges are not reported, since discordance with absolute values may lead to misinterpretation of CBC data. Current Interpretive Data was last revised on 2017. Blood 12/04/2024 1:50 PM CDT 12/04/2024 3:08 PM CDT us Taiwo Vázquez MD LAB BLOOD ORDERABLES Fin al Result [facility] [place] [address] * (ABNORMAL) CBC with auto differential (12/04/2024 1:50 PM CDT) [facility] WBC 3.67(L) 3.80 - 9.90 K/cumm Hgb 10.4(L) 11.9 - 15.5 g/dL [facility] Hct 30.5(L) 35.6 - 45.5 % [facility] Plt 53(L) 150 - 400 K/cumm [facility] MPV 11.9 9.1 - 12.3 fL [facility] RBC 3.29(L) 3.90 - 5.20 M/cumm [facility] MCV 92.7 81.3 - 96.4 fL [facility] MCH 31.6 27.1 - 33.3 pg [facility] MCHC 34.1 32.3 - 35.7 g/dL [facility] RDW CV 14.6 11.1 - 14.9 % [facility] RDW SD 49.7(H) 35.7 - 48.1 fL [facility] NRBC abs 0.00 0.00 - 0.01 K/cumm [facility] Blood 12/04/2024 1:50 PM CDT 12/04/2024 3:08 PM CDT us Taiwo Vázquez MD LAB BLOOD ORDERABLES Fin al Result [facility] [place] [address] * (ABNORMAL) Protime-INR (12/04/2024 1:50 PM CDT) [facility] PT 15.6(H) 9.7 - 13.0 sec INR 1.43(H) 0.90 - 1.20 [facility] Comment: Interpretive data Oral anticoagulant [...] ORDERABLES Fin al Result Performing Organization Address City/[facility]/ZIP Co de Phone Number [facility] [place] [address] * (ABNORMAL) Bilirubin, direct (12/04/2024 1:50 PM CDT) Bilirubin, direct 0.8(H) 0.1 - 0.3 mg/dL Blood 12/04/2024 1:50 PM CDT 12/04/2024 3:08 PM CDT Taiwo Vázquez MD LAB BLOOD ORDERABLES Fin al Result Performing Organization Address [facility] Co de Phone Number [facility] [place] [address] * (ABNORMAL) Comprehensive metabolic panel (12/04/2024 1:50 PM CDT) Sodium 145 135 - 145 mmol/L Potassium, pl 3.5 3.3 - 4.9 mmol/L [facility] Chloride 108 97 - 110 mmol/L [facility] CO2 33(H) 22 - 32 mmol/L [facility] Anion gap 4 2 - 15 mmol/L [facility] BUN 16 6 - 25 mg/dL [facility] Creatinine 1.49(H) 0.60 - 1.10 mg/dL [facility] Glucose 139 70 - 199 mg/dL [facility] Comment: Interpretive Data Fasting glucose [...] Calcium 8.9 8.5 - 10.3 mg/dL [facility] Bilirubin, total 1.8(H) 0.1 - 1.2 mg/dL [facility] Protein, pl 6.0(L) 6.5 - 8.5 g/dL [facility] Albumin 3.2(L) 3.5 - 5.0 g/dL [facility] Alk phos 98 40 - 130 Units/L [facility] ALT 17 7 - 45 Units/L [facility] AST 34 10 - 45 Units/L [facility] Blood 12/04/2024 1:50 PM CDT 12/04/2024 3:08 PM CDT Taiwo Vázquez MD LAB BLOOD ORDERABLES Fin al Result [facility] [place] [address] * (ABNORMAL) eGFR (11/25/2024 9:40 AM CDT) [...] MD LAB BLOOD ORDERABLES Fin al Result [facility] [place] [address] * (ABNORMAL) Differential, auto (11/25/2024 9:40 AM CDT) Neutrophil abs 2.43 1.50 - 6.50 K/cumm Imm gran abs 0.00 0.00 - 0.10 K/cumm [facility] Lymphocyte abs 0.68(L) 0.80 - 3.30 K/cumm [facility] Monocyte abs 0.33 0.20 - 0.80 K/cumm [facility] Eosinophil abs 0.63(H) 0.00 - 0.50 K/cumm [facility] Basophil abs 0.02 0.00 - 0.10 K/cumm [facility] Neutrophil pct 59.4 % [facility] Comment: Interpretive Data Percent cell count reference ranges are not reported, since discordance with absolute values may lead to misinterpretation of CBC data. Current Interpretive Data was last revised on 2017. Imm gran pct 0.0 % [facility] Comment: Interpretive Data Percent cell count reference ranges are not reported, since discordance with absolute values may lead to misinterpretation of CBC data. Current Interpretive Data was last revised on 2017. Lymphocyte pct 16.6 % [facility] Comment: Interpretive Data Percent cell count reference ranges are not reported, since discordance with absolute values may lead to misinterpretation of CBC data. Current Interpretive Data was last revised on 2017. Monocyte pct 8.1 % [facility] Comment: Interpretive Data Percent cell count reference ranges are not reported, since discordance with absolute values may lead to misinterpretation of CBC data. Current Interpretive Data was last revised on 2017. Eosinophil pct 15.4 % [facility] Comment: Interpretive Data Percent cell count reference ranges are not reported, since discordance with absolute values may lead to misinterpretation of CBC data. Current Interpretive Data was last revised on 2017. Basophil pct 0.5 % [facility] Comment: Interpretive Data Percent cell count reference ranges are not reported, since discordance with absolute values may lead to misinterpretation of CBC data. Current Interpretive Data was last revised on 2017. Blood 11/25/2024 9:40 AM CDT 11/25/2024 10:10 AM CDT us Taiwo Vázquez MD LAB BLOOD ORDERABLES Fin al Result [facility] [place] [address] * (ABNORMAL) CBC with auto differential (11/25/2024 9:40 AM CDT) WBC 4.09 3.80 - 9.90 K/cumm Hgb 9.9(L) 11.9 - 15.5 g/dL [facility] Hct 30.5(L) 35.6 - 45.5 % [facility] Plt 52(L) 150 - 400 K/cumm [facility] MPV 11.3 9.1 - 12.3 fL [facility] RBC 3.22(L) 3.90 - 5.20 M/cumm [facility] MCV 94.7 81.3 - 96.4 fL [facility] MCH 30.7 27.1 - 33.3 pg [facility] MCHC 32.5 32.3 - 35.7 g/dL [facility] RDW CV 14.9 11.1 - 14.9 % [facility] RDW SD 51.8(H) 35.7 - 48.1 fL [facility] NRBC abs 0.00 0.00 - 0.01 K/cumm [facility] Blood 11/25/2024 9:40 AM CDT 11/25/2024 10:10 AM CDT Taiwo Vázquez MD LAB BLOOD ORDERABLES Fin al Result Performing Organization Address [facility] de Phone Number [facility] [place] [address] * [id number], Tumor Marker (11/25/2024 9:40 AM CDT) Pathologist [facility] alpha Fetoprotein <2.0 <=8.3 ng/mL Comment: Interpretive [...] al. Clin Chem Lab Med 2018;[id number] Katya V. et al. Clin Chem 2014;8533-2386. Current interpretive data was last revised 2022. Blood 11/25/2024 9:40 AM CDT 11/25/2024 10:10 AM CDT Taiwo Vázquez MD LAB BLOOD ORDERABLES Fin al Result Performing Organization Address [facility] de Phone Number CHARISSA DUNNE [facility] [place] [address] * (ABNORMAL) Protime-INR (11/25/2024 9:40 AM CDT) PT 15.7(H) 9.7 - 13.0 sec INR 1.44(H) 0.90 - 1.20 [facility] Comment: Interpretive data Oral anticoagulant therapeutic ranges: Venous thromboembolism prophylaxis or treatment: 2.0-3.0 CARDIOLOGY Standard range: 2.0-3.0 High-intensity range: 2.5-3.5 Refer to indication-specific guidelines for appropriate target ranges for prosthetic heart valve replacement. Current interpretive data was last revised on 2019. Blood 11/25/2024 9:40 AM CDT 11/25/2024 10:15 AM CDT Result [facility] Taiwo Vázquez MD LAB BLOOD ORDERABLES Fin al Result Performing Organization Address [facility] Phone Number [facility] [place] [address] * Hemoglobin A1c (11/25/2024 9:40 AM CDT) Hgb A1C 5.5 4.0 - 5.6 % Estimated Average Glucose 111 mg/dL [facility] Comment: The ADA recommends reporting an estimated Average Glucose (eAG) with all Hemoglobin A1c results using the equation derived from a study of 507 normal and diabetic adults. Minority populations were underrepresented and children were not included. (Diabetes Care 2020; 43(S1): S66-S76). The eAG is not equivalent to a fasting glucose. Blood 11/25/2024 9:40 AM CDT 11/25/2024 10:10 AM CDT Result [facility] Taiwo Vázquez MD LAB BLOOD ORDERABLES Fin al Result Performing Organization Address [facility] de Phone Number [facility] [place] [address] * (ABNORMAL) Bilirubin, direct (11/25/2024 9:40 AM CDT) Pathologist [facility] Bilirubin, direct 0.9(H) 0.1 - 0.3 mg/dL Blood 11/25/2024 9:40 AM CDT 11/25/2024 10:10 AM CDT Taiwo Vázquez MD LAB BLOOD ORDERABLES Fin al Result Performing Organization Address City/State/[facility] Co de Phone Number [facility] [place] [address] * (ABNORMAL) Comprehensive metabolic panel (11/25/2024 9:40 AM CDT) Sodium 145 135 - 145 mmol/L Potassium, pl 3.4 3.3 - 4.9 mmol/L [facility] Chloride 108 97 - 110 mmol/L [facility] CO2 31 22 - 32 mmol/L [facility] Anion gap 6 2 - 15 mmol/L [facility] BUN 13 6 - 25 mg/dL [facility] Creatinine 1.26(H) 0.60 - 1.10 mg/dL [facility] Glucose 129 70 - 199 mg/dL [facility] Comment: Interpretive Data Fasting glucose [...] 2022. Calcium 8.6 8.5 - 10.3 mg/dL [facility] Bilirubin, total 2.1(H) 0.1 - 1.2 mg/dL [facility] Protein, pl 5.8(L) 6.5 - 8.5 g/dL [facility] Albumin 3.1(L) 3.5 - 5.0 g/dL [facility] Alk phos 96 40 - 130 Units/L [facility] ALT 19 7 - 45 Units/L [facility] AST 30 10 - 45 Units/L [facility] Blood 11/25/2024 9:40 AM CDT 11/25/2024 10:10 AM CDT Taiwo Vázquez MD LAB BLOOD ORDERABLES Fin al Result [facility] [place] [address] * HLA Antibody Screen by PRA or SAB per Schedule (Class I and Class II) (11/19/2024 2:00 PM CDT) Blood 11/19/2024 2:00 PM CDT Narrative [facility]IST[facility] - DIRECTOR SALES SUPPORT Sample received in lab. Single Antigen Antibody [...] a method developed and validated by the [facility] HLA laboratory based on an FDA-approved IVD kit (LABScreen Single-Antigen, Cost Effective Data, [place], [place]). All patient serum samples are pretreated with EDTA before the screen to prevent complement interference. Additional serum treatments, such as adsorption and DTT treatment, may be performed as indicated. Interpretive comments: Low risk: MFI [id number]. Moderate risk: MFI 3968-5325. Increased risk: MFI >/= 5000. The presence [...] antigens to avoid. Testing performed at the [facility], [address] [place] [address], 5th floor, [place], [address]. IA # [id number]. Rani Smith, Ph.D., Customer Service Trainer, [facility] Laboratory Aurelio Palafox M.D., Ph.D., Instrument And Electrical Technician, [facility] Norma Talamantes, Ph.D., CLIA Instrument And Electrical Technician, [facility] Current methodology and interpretive comments last revised on 09/06/2022. us Timothy Pardo MD LAB BLOOD ORDERABL ES Final Result [facility] * Pap and High Risk HPV and Genotyping (Cytology Component) (04/28/2024 10:41 AM CDT) Thin prep (Pap test) 04/28/2024 10:41 AM CDT 04/28/2024 1:00 PM CDT Narrative PATHOLOGY [facility] - 05/04/2024 4:21 PM CDT EPIC results best viewed via link to PDF [facility] Chelsea Cronin [facility] [place] [address] Note to Patients: This report may contain [...] Gender: F : 1960 (Age: 63) Address: [address] [place] [address] Hospital #: [id number] Service: Medical Location: [place] [address] Patient Type: [facility] Inpatient Taken: 04/28/2024 Received: 04/28/2024 Accessioned: [...] this test have been verified by the [facility] Molecular Infectious Disease laboratory. Correlate with reported cytology results, as applicable. Interpretive data last revised 23 jhosie/05/04/2024 16:21 JEANNIE Worthington([facility]) Report Electronically Reviewed and Signed Out By JEANNIE Worthington([facility]) 05/04/2024 16:21:37 Cervicovaginal Cytology (Pap Test) Disclaimer: The Pap test is a screening test used to detect cervical cancer and its precursors; it is not a diagnostic procedure. False negative and false positive results do occur. Pap test results should be interpreted in the context of pertinent clinical information and biopsy results as indicated. [facility] Clinical Laboratory Improvement Amendments (CLIA) mandate that cytologic and histologic results be correlated for laboratory director supplier quality & improvement standards. FOR ALL HIGH-GRADE CASES [...] determined by the Surgical Pathology Department at [facility] as part of an ongoing manager quality compliance program and in compliance with federally mandated [...] determined by the Surgical Pathology Department of [facility]. It has not been cleared or approved by the U. S. Food and Drug Administration. us Eladio Carey MD LAB CYTOLOGY ORDERABLES Final Result PATHOLOGY [facility] 3rd Floor [place], [place] [phone] * Screening Mammogram Bilateral W Pal (04/27/2024 1:55 PM CDT) Anatomical Region Laterality Modality Breast Bilateral Mammography Narrative 04/27/2024 1:52 PM CDT Mammogram Technique: Bilateral Digital Breast Tomosynthesis, Bilateral C-view 2D Screening mammogram. Views obtained: bilateral craniocaudal and bilateral mediolateral oblique. Computer Aided Detection was performed. Mammogram Findings: The present examination has been compared to prior imaging studies performed at [facility] on 05/15/2021 and 12/06/2021. There [...] compared to prior imaging studies performed at [facility] on 05/15/2021 and 12/06/2021. There [...] revised on 2018. Triglycerides 43 <=149 mg/dL [facility] Comment: Interpretive Data Ages < [...] revised on 2018. HDL 64 >=40 mg/dL [facility] Comment: Interpretive Data Ages < [...] on 2018. LDL, calculated 47 <=129 mg/dL [facility] Comment: Interpretive Data Ages < [...] 3. Gavin M et al. SCOTT Cardiol. 2019December 10;5(5):540-548. doi: 10.1001/jamacardio.2020.0013 Current Interpretive Data was last revised on 2024. Non-HDL Cholesterol 58 mg/dL [facility] Comment: Interpretive Data Ages < or [...] last revised on 2018. Chol/HDL ratio 2 [facility] Blood 04/22/2024 12:5 8 AM CDT 04/22/2024 3:00 AM CDT John Paul Reddy MD LAB BLOOD ORDERABLES Final Resul t [facility] [place] [address] * Hepatitis C antibody Blood (06/16/2023 6:09 AM DIRECTOR SALES SUPPORT) Hep C Ab Nonreactive Nonreactive [facility] Comment:Antibodies to HCV no t detected. Does NOT exclude the possibility of recent exposure to HCV. Current interpretive data was last revised on 22 Blood 06/16/2023 6:09 AM DIRECTOR SALES SUPPORT 06/16/2023 6:35 AM DIRECTOR SALES SUPPORT Alejandro Frazier MD LAB MICROBIOLOGY - GENERAL ORDERABLES Final Result [facility] [place] [address] * COLONOSCOPY (05/30/2022 9:28 AM CDT) Anatomical Region Laterality Modality Other Narrative Procedure Note Pat Robins MD - 05/30/2022 9:28 AM CDT [facility] END[facility] Patient Name: Aleah Levine Procedure Date: 05/30/2022 9:28 AM Date of : 1960 Admit Type: Outpatient Age: 61 Gender: Female Attending MD: Pat Robins M.D. Room: [facility] ENDOSCOPY ROOM 3 Note Status: [...] The scope was passed under direct vision.The [id number] [id number] endoscope was introducedthrough the anus and [...] medications. - [facility] - Return to referring physician in 10 years. Attending Participation: I personally performed the entire procedure. Electronically signed by Pat Robins MD Pat Robins M.D. 05/30/2022 10:31:01 AM . Number of Addenda: 0 Note Initiated On: 05/30/2022 9:28 AM Recognized by the [employer] for promoting quality in endoscopy Pat Robins MD ENDOSCOPY PROCEDURES Ju l Result * Albumin Creatinine Ratio, Urine (03/01/2021 2:45 PM CDT) Albumin Ur <12.0 mg/L [facility] Comment: Interpretive Data No reference range established. Current interpretive data was last revised 2018. Creatinine Ur 59.5 mg/dL [facility] Comment: Interpretive Data No reference range established. Current interpretive data was last revised 2018. Albumin Creatinine Ratio, Ur <20 1 - 29 mg/g [facility] Urine 03/01/2021 2:45 PM CDT 03/01/2021 3:41 PM CDT Oly Baker MD LAB URINE ORDER RAVEN Final Result [facility] [place] [address] from Last 3 Months or Most Recently Relevant to Health Maintenance [facility] ACCESS [place] [facility] BLUE CAPPTURE [facility] TRANSPLANT [employer] TRANSPLANT [employer] RISK TRANSPLANT [employer] RISK Advance Directives For more information, please contact: [phone] * Full Code (Latest Code Status on [...] 8:35 AM 02/05/2023 7:30 PM Care Teams Political Director Relationship Specialty Start Date End Date Maddy Romano MD [address] [place] [address] PCP - General 09/28/16 Manas Ibarra MD [address] [place] [address] Referring Physician Thoracic Surgery 11/05/18 Zion Barton MD [address] [place] [address] [id number] Radiation Oncologist Radiation Oncology 05/05/19 Molina Charles MD [address] [facility] [address] [place] [address] Referring Physician Transplant Hepatology 12/15/20 Karuna Maria, OT Occupational Therapist Occupational Therapy 09/20/22 Renu Treviño NP [address] [facility] [address] [place] [address] Nurse Practitioner Radiation Oncology 11/08/22 Eladio Mcrae MD [address] [place] [address] Referring Physician Obstetrics and Gynecology 11/15/22 Marcy Schroeder, RN [address] [place] [address] Combine Inspector 04/27/24 Chelsea Barker, manager merchandiseCombine Inspector 11/13/24
--- OUTSIDE RECORDS SUMMARY | 2025-02-17 14:07 | XMS_ITS | Encounter Summary ---
Author Organization [facility] Healthcare Address [address] [place] [address] Care Team Providers Care Corporate Librarian Name Role Phone Maddy Romano MD Primary Care Provider Astrid Haq NP Unavailable Manas Ibarra MD Unavailable Zion Barton MD Unavailable Molina Charles MD Unavailable [phone] Inés Lemus RN Unavailable [phone] Karuna Maria OT Unavailable Unavaila Renu Paul NP Unavailable [phone] Eladio Mcrae MD Unavailable [phone] Marcy Schroeder RN Unavailable [phone] Briana Poe RN Unavailable [phone] Marina Le RN Unavailable [phone] Chelsea Barker RN Unavailable Unavail able Reason for Visit * Reason Onset Date Comments Ready to schedule 04/25/2022 Encounter Details Date Type Department Care Team (Late st Contact Info) Description 04/25/2022 Telephone [facility] Specialty Services [address] [place] [address] Miscellaneous, Not In File Ready to schedule [...] on file 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 [address] [place] [address] Referring Physician Transplant Hepatology 12/15/20 Inés Lemus, TYRA [address] [facility] [address] [place] [address] Petroleum Analyst 10/31/21 5 Karuna Maria, OT Occupational Therapist Occupational Therapy 09/20/22 Renu Treviño NP [address] [facility] [address] [place] [address] Nurse Practitioner Radiation Oncology 11/08/22 Eladio Mcrae MD [address] [place] [address] Referring Physician Obstetrics and Gynecology 11/15/22 Marcy Schroeder RN [address] [place] [address] Petroleum Analyst 04/27/24 Briana Poe, TYRA [address] [address] [place] Outpatient Crown And Bridge Technician 04/30/24 05/28/24 Marina Le RN [address] [place] [address] [facility] Outpatient Crown And Bridge Technician 10/05/24 10/26/24 Chelsea Barker, nephrology nursePetroleum Analyst 11/13/24 documented as of this encounter
--- OUTSIDE RECORDS SUMMARY | 2025-02-17 14:07 | XMS_ITS | Encounter Summary ---
Author Organization [facility] Healthcare Address [address] [place] [address] Care Team Providers Care Manager Maritime Name Role Phone Maddy Romano MD Primary Care Provider Astrid Haq NP Unavailable Manas Ibarra MD Unavailable Zion Barton MD Unavailable [phone] Molina Charles MD Unavailable [phone] Inés Lemus RN Unavailable [phone] Karuna Maria OT Unavailable Unavaila Renu Paul NP Unavailable [phone] Eladio Mcrae MD Unavailable [phone] Marcy Schroeder RN Unavailable [phone] Briana Poe RN Unavailable [phone] Marina Le RN Unavailable Chelsea Barker RN Unavailable Unavail able Reason for Visit * Reason Onset Date Comments Ready to scheduled 04/26/2022 Encounter Details Date Type Department Care Team (Late st Contact Info) Description 04/26/2022 Telephone [facility] Specialty Services [address] [place] [address] Miscellaneous, Not In File Ready to scheduled [...] on file 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 Gender Identity Female 11/15/2021 2:30 AM CDT [...] COVID: Suspected 09/24/2024 09/24/2024 09/24/2024 3:13 PM PULLMAN CAR REPAIRER documented as of this encounter Care Teams Manager Maritime Relationship Specialty Start Date End Date Maddy Romano MD [address] [place] [address] PCP - General 09/28/16 Astrid Haq NP [address] [place] [address] Nurse Practitioner Radiation Oncology 11/05/18 11/07/22 Manas Ibarra MD [address] [place] [address] Referring Physician Thoracic Surgery 11/05/18 Zion Barton MD [address] [place] [address] Radiation Oncologist Radiation Oncology 05/05/19 Molina Charles MD 1 [facility] [address] [place] [address] Referring Physician Transplant Hepatology 12/15/20 Inés Lemus, TYRA [address] [facility] [address] [place] [address] Orchestrator 10/31/21 5 Karuna Maria, OT Occupational Therapist Occupational Therapy 09/20/22 Renu Treviño NP [address] [facility] [address] [place] [address] Nurse Practitioner Radiation Oncology 11/08/22 Eladio Mcrae MD [address] [place] [address] Referring Physician Obstetrics and Gynecology 11/15/22 Marcy Schroeder RN [address] [place] [address] Orchestrator 04/27/24 Briana Poe, TYRA [address] [address] [place] Outpatient Decontamination Worker 04/30/24 05/28/24 Marina Le RN [address] [place] [address] [facility] Outpatient Decontamination Worker 10/05/24 10/26/24 Chelsea Barker, ethnoarchaeology professorOrchestrator 11/13/24 documented as of this encounter
--- OUTSIDE RECORDS SUMMARY | 2025-02-17 14:07 | XMS_ITS | Encounter Summary ---
Author Organization [facility] Address [address] [place] [address] Phone Care Team Providers Care Oracle Hrms Developer Name Role Phone Maddy Romano MD Primary Care Provider Astrid Haq NP Unavailable Manas Ibarra MD Unavailable Zion Barton MD Unavailable Molina Charles MD Unavailable [phone] Inés Lemus RN Unavailable [phone] Karuna Maria OT Unavailable Unavaila Renu Paul NP Unavailable Eladio Mcrae MD Unavailable Marcy Schroeder RN Unavailable [phone] Briana Poe RN Unavailable Marina Le RN Unavailable [phone] Chelsea Barker RN Unavailable Unavail able Encounter [...] on file Legal Sex Female 8:22 AM BUTTON PUNCHER Gender Identity Female 11/15/2021 2:30 AM CDT [...] COVID: Suspected 09/24/2024 09/24/2024 09/24/2024 3:13 PM BUTTON PUNCHER documented as of this encounter Care Teams Oracle Hrms Developer Relationship Specialty Start Date End Date Maddy Romano MD [address] [place] [address] PCP - General 09/28/16 Astrid Haq NP [address] [place], [place] [address] Nurse Practitioner Radiation Oncology 11/05/18 11/07/22 Manas Ibarra MD [address] [place], [place] [address] Referring Physician Thoracic Surgery 11/05/18 Zion Barton MD [address] [place], [place] [address] Radiation Oncologist Radiation Oncology 05/05/19 Molina Charles MD 1 [facility] [address] [place] [address] Referring Physician Transplant Hepatology 12/15/20 Inés Lemus, TYRA [address] [facility] [address] [place] [address] Venue Coordinator 10/31/21 5 Karuna Maria OT Occupational Therapist Occupational Therapy 09/20/22 Renu Treviño NP [address] [facility] [address] [place] [address] Nurse Practitioner Radiation Oncology 11/08/22 Eladio Mcrae MD [address] [place] [address] Referring Physician Obstetrics and Gynecology 11/15/22 Marcy Schroeder, RN [address] [place] [address] Venue Coordinator 04/27/24 Briana Poe TYRA 45[address] [facility] [address] [place] [address] [facility] Outpatient Vacuum Filter Operator 04/30/24 05/28/24 Marina Le RN [address] [facility] [address] [place] [address] [facility] Outpatient Vacuum Filter Operator 10/05/24 10/26/24 Chelsea Barker, custom wood stair builderVenue Coordinator 11/13/24 documented as of this encounter
--- OUTSIDE RECORDS SUMMARY | 2025-02-17 14:07 | XMS_ITS | Patient Health Record ---
Author Organization [facility] Address [address] [place], [place] [address] Care Team Providers Care Health Inspector Food Name Role Phone IVAN HARDIN Unavailable [phone] Leisa Romano Unavailable Unavailable Allergies Allergen (clinical drug ingredient) Drug/Non Drug Allergy documented on EMR Reaction Allergy Type Onset Date Status Substance with sulfonamide structure and antibacterial mechanism of action (substance) Sulfa Antibiotics Unknown Drug Allergy Active Reason For Referral No Information Medications Medication SIG (Take, Route, Frequency, Duration) Notes Start Date End Date Status Lactulose 20 GM 1 packet as needed Orally Once a day Active Ciclopirox 8 % 1 application Externally to toenails. Once a day.; Duration: 30 days Remove medication once a week with rubbing alcohol. one bottle, 6.6mL or similar. 12/10/2024 06/08/2025 Active Ondansetron 4 MG 1 tablet on the tongue and allow to dissolve Orally Once a day Active Bumetanide 1 MG 1 tablet Orally Once a day Active Spironolactone 100 MG 1 tablet Orally On ce a day Active Pantoprazole Sodium-NaCl 40-0.9 MG/100ML as directed Intravenous Active Xifaxan 550 MG 1 tablet Orally Twice a day Active Immunizations Vaccine Route Administration Date Status Comme nts Hep B, adult dosage Unknown 12/18/2023 Administered Hep B, adult dosage Unknown 01/22/2024 Administered Influenza (split), 3 yrs and above Unknown 05/14/2014 A dministered Influenza (split), 3 yrs and above Unknown 04/28/2021 A dministered Influenza, quadrivalent, spl it virus Unknown 05/26/2015 Administered Influenza, quadrivalent, spl it virus Unknown 05/01/2019 Administered Influenza, quadrivalent, spl it, preservative free, 3 years or older Unknown 05/17/2016 Administered Influenza, quadrivalent, spl it, preservative free, 3 years or older Unknown 05/23/2017 Administered Influenza, quadrivalent, spl it, preservative free, 3 years or older Unknown 05/08/2018 Administered Influenza, quadrivalent, spl it, preservative free, 3 years or older Unknown 05/09/2018 Administered Influenza, quadrivalent, spl it, preservative free, 3 years or older Unknown 05/01/2019 Administered Influenza, quadrivalent, spl it, preservative free, 3 years or older Unknown 04/29/2020 Administered Influenza, quadrivalent, spl it, preservative free, 3 years or older Unknown 07/02/2023 Administered Influenza, seasonal, injecta ble, preservative free, 6-35 months Unknown 05/29/2013 Administered Lyle Covid-19 Vaccine Unknown 10/17/2020 Administere d Pneumococcal conjugate PCV 13 Unknown 05/26/2015 Admini stered Pneumococcal polysaccharide PPV23 Unknown 03/24/2014 Ad ministered Tdap Unknown 03/24/2014 Administered Social History Tobacco Use: Social History Observation Description Date Details (start date - stop date) Never Smoker NA - NA Tobacco Control (Standard) Question Answer Notes Tobacco use: Nonsmoker Vital Signs Height-cm 172.72 cm 12/10/2024 Weight-kg 90.72 kg 12/10/2024 Height 68 in 12/10/2024 Weight 200 lbs 12/10/2024 BMI 30.41 kg/m2 12/10/2024 Encounters Encounter Location Date Provider Diagnosis [address] [id number] 12/10/2024 IVANHELADIO HARDIN Tinea unguium B35.1 ; Pain in right toe(s) M79.674 ; Pain in left toe(s) M79.675 ; Atherosclerosis of cabazon arteries of extremities with intermittent claudication, bilateral legs I70.213 and Type 2 diabetes mellitus with other circulatory complications E11.59 Assessments Encounter Date Diagnosis (ICD Code) Assessment Notes Treatment Notes Treatment Clinical Notes Section Notes 12/10/2024 Tinea unguium (ICD-10 - B35.1) NAIL DEBRIDEMENT: Nails 1-5 Bilateral were debrided extensively with nail nippers and emery board, reducing length and girth to pink healthy tissue with any subungual debris and necrotic tissue removed 12/10/2024 Pain in right toe(s) (ICD-10 - M79.674) 12/10/2024 Pain in left toe(s) (ICD-10 - M79.675) 12/10/2024 Atherosclerosis of cabazon arteries of extremities with intermittent claudication, bilateral legs (ICD-10 - I70.213) 12/10/2024 Type 2 diabetes mellitus with other circulatory complications (ICD-10 - E11.59) Diabetic Foot Care: The patient was educated on diabetes and the lower extremity. The patient was instructed to check his feet daily to report any problems or signs of infection immediately. The patient was provided written information on Diabetic Foot Care as well as the Amputation Prevention Guide. 12/10/2024 Other Patient has liver issues and is not a good candidate for any oral antifungal agents. Recommend topical Rx and debridements. Patient will monitor the dark area on the right foot. It looks like an old spider or insect bite that is not infected. As long as it gets retrimmer and fades we will monitor. If it gets dark, drains, changes color or shape than I would recommend biopsy Plan Of Treatment Next Appt Details Provider Name:BALDEV ARROYO, 03/18/2025 09:10:00 AM, [address] [place] [address], [id number], Insurance Providers Payer Name Payer Address Payer Phone Subscriber Number Group Number Insured Name Patient Relationship to Insured Coverage Start Date Coverage End Date [facility] [address] [address] [place], [place] [id number] BruleAleah padron Self - patient is the insured Medical (General) History Medical History History ICD Code Pneumonia anemia asthma - mild intermittent Leg/Feet cramps Liver disease Sleep apnea Diabetic
--- OUTSIDE RECORDS SUMMARY | 2025-02-17 14:07 | XMS_ITS | Encounter Summary ---
Author Organization [facility] Address [address] [place] [address] Care Team Providers Care Parachute Taper Name Role Phone Unavailable Primary Care Provider Unavailabl e Reason for Visit * Reason Onset Date Comments TR on CKD 04/02/2024 Spoke w/Dr. Mueller Stroke/CVA 04/02/2024 Spoke w/Gladys @ Dr. Anthony's exchange Encounter Details Date Type Department Care Team (Late st Contact Info) Description 04/02/2024 Telephone [facility] Emergency [address] [place] [address] [place] [id number] [place] [address] TR on CKD (Spoke w/Dr. Mueller); [...]
--- OUTSIDE RECORDS SUMMARY | 2025-02-17 14:07 | XMS_ITS | Encounter Summary ---
Author Organization [facility] Address [address] [place] [address] Phone Care Team Providers Care Dentist/Owner Name Role Phone Maddy Romano MD Primary Care Provider Astrid Haq NP Unavailable Manas Ibarra MD Unavailable Zion Barton MD Unavailable Molina Charles MD Unavailable [phone] Inés Lemus RN Unavailable [phone] Karuna Maria OT Unavailable Unavaila Renu Paul NP Unavailable [phone] Eladio Mcrae MD Unavailable Marcy Schroeder RN Unavailable [phone] Briana Poe RN Unavailable Marina Le RN Unavailable [phone] Chelsea Barker RN Unavailable Unavail able Encounter [...] on file Legal Sex Female 8:22 AM 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 Gender Identity Female 11/15/2021 2:30 AM CDT [...] COVID: Suspected 09/24/2024 09/24/2024 09/24/2024 3:13 PM KNIFE BLADE POLISHER documented as of this encounter Care Teams Dentist/Owner Relationship Specialty Start Date End Date Maddy Romano MD [address] [place] [address] PCP - General 09/28/16 Astrid Haq NP [address] [place] [address] Nurse Practitioner Radiation Oncology 11/05/18 11/07/22 Manas Ibarra MD [address] [place] [address] Referring Physician Thoracic Surgery 11/05/18 Zion Barton MD [address] [place] [address] Radiation Oncologist Radiation Oncology 05/05/19 Molina Charles MD [address] [place] [address] [address] [place] [address] Referring Physician Transplant Hepatology 12/15/20 Inés Lemus, TYRA [address] [facility] [address] [place] [address] Private Duty Aide 10/31/21 5 Karuna Maria, OT Occupational Therapist Occupational Therapy 09/20/22 Renu Treviño NP [address] [facility] [address] [place] [address] Nurse Practitioner Radiation Oncology 11/08/22 Eladio Mcrae MD [address] [facility] [address] [place] [address] Referring Physician Obstetrics and Gynecology 11/15/22 Marcy Schroeder RN [address] [place] [address] Private Duty Aide 04/27/24 Briana Poe, TYRA [address] [address] [facility] Outpatient Tire Retreader 04/30/24 05/28/24 Marina Le RN [address] [address] [facility] Outpatient Tire Retreader 10/05/24 10/26/24 Chelsea Barker, attendance officerPrivate Duty Aide 11/13/24 documented as of this encounter
--- OUTSIDE RECORDS SUMMARY | 2025-02-17 14:07 | XMS_ITS | Encounter Summary ---
Author Organization [facility] Address [address] [place] [address] Phone Care Team Providers Care Skid Wrapper Name Role Phone Maddy Romano MD Primary Care Provider Astrid Haq NP Unavailable Manas Ibarra MD Unavailable Zion Barton MD Unavailable Molina Charles MD Unavailable [phone] Inés Lemus RN Unavailable [phone] Karuna Maria OT Unavailable Unavaila Renu Paul NP Unavailable [phone] Eladio Mcrae MD Unavailable Marcy Schroeder RN Unavailable [phone] Briana Poe RN Unavailable [phone] Marina Le RN Unavailable Chelsea Barker RN [...] on file Legal Sex Female 8:22 AM CAMPAIGN MANAGER Gender Identity Female 11/15/2021 2:30 AM [...] COVID: Suspected 09/24/2024 09/24/2024 09/24/2024 3:13 PM CAMPAIGN MANAGER documented as of this encounter Care Teams Skid Wrapper Relationship Specialty Start Date End Date Maddy Romano MD [address] [place] [address] PCP - General 09/28/16 Astrid Haq NP [address] [place], [place] [address] Nurse Practitioner Radiation Oncology 11/05/18 11/07/22 Manas Ibarra MD [address] [place], [place] [address] Referring Physician Thoracic Surgery 11/05/18 Zion Barton MD [address] [place], [place] [address] Radiation Oncologist Radiation Oncology 05/05/19 Molina Charles MD 1 [facility] [address] [place] [address] Referring Physician Transplant Hepatology 12/15/20 Inés Lemus, TYRA [address] [facility] [address] [place] [address] Painting Technician 10/31/21 5 Karuna Maria OT Occupational Therapist Occupational Therapy 09/20/22 Renu Treviño NP [address] [facility] [address] [place] [address] Nurse Practitioner Radiation Oncology 11/08/22 Eladio Mcrae MD [address] [place] [address] Referring Physician Obstetrics and Gynecology 11/15/22 Marcy Schroeder, RN [address] [place] [address] Painting Technician 04/27/24 Briana Poe TYRA 45[address] [facility] [address] [place] [address] [facility] Outpatient Benefits Clerk 04/30/24 05/28/24 Marina Le RN [address] [facility] [address] [place] [address] [facility] Outpatient Benefits Clerk 10/05/24 10/26/24 Chelsea Barker, chemical dependency nursePainting Technician 11/13/24 documented as of this encounter
--- OUTSIDE RECORDS SUMMARY | 2025-02-17 14:07 | XMS_ITS ---
Author Organization [facility] Address [address] [place] [address] Care Team Providers Care Toolmaker Name Role Phone Maddy Romano MD Primary Care Provider [phone] Manas Ibarra MD Unavailable Zion Barton MD Unavailable Molina Charles MD Unavailable [phone] Karuna Maria OT Unavailable Unavaila Renu Paul NP Unavailable [phone] Eladio Mcrae MD Unavailable [phone] Marcy Schroeder RN Unavailable [phone] Chelsea Barker RN Unavailable Unavail able Transplant Episode Liver Candidate [facility] ([place], [place]) - [facility] Center waitlisted on 08/17/2022 Marked as Active on 09/28/2024 Reason: [facility] CoordinatorChelsea Barker RN Phone: N/A Fax: N/A Email: N/A Scores Score Value Updated Expires Exceptions/Xiomara sons CPRA Not available UNOS MELD 18 02/10/2025 05/11/2025 MELD (Calc) 18 02/10/2025 [place] Organ Diagnosis Organ Primary Contributory Liver Cirrhosis: Metabolic Dysfunction -Associated Steatohepatitis (MASH) Care Team Name Role Phone Fax Email Chelsea Barker, TYRA Liver Coordinator N/A N/A N/A Charito Lambert, DEVONTE Dietitian N/A N/A N/A Anna Ngo, ZAINAB Mac Artist N/A N/A N/A Molina Charles MD Referring Physician [phone] N/A Cynthia Robert RN Secondary Coordinator [phone] N/A N/A [place] Bear Hat Cleaner [phone] N/A N/A Faith Lopez Primary Rough Planer Tender N/A N/A N/A Events Pre-Transplant Referred: 10/26/2021 Evaluation began: 11/02/2021 Committee: 08/07/2022 Center waitlisted: 08/17/2022
--- OUTSIDE RECORDS SUMMARY | 2025-02-17 14:07 | XMS_ITS ---
Author Organization [facility] Address [address] [place] [address] Care Team Providers Care Welt Wheeler Name Role Phone Maddy Romano MD Primary Care Provider Manas Ibarra MD Unavailable Zion Barton MD Unavailable [phone] Molina Charles MD Unavailable [phone] Karuna Maria OT Unavailable Unavaila Renu Paul NP Unavailable [phone] Eladio Mcrae MD Unavailable [phone] Marcy Schroeder RN Unavailable [phone] Chelsea Barker RN Unavailable Unavail able Transplant Episode Kidney Candidate [facility] ([place], [place]) 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
--- OUTSIDE RECORDS SUMMARY | 2025-02-17 14:07 | XMS_ITS | Encounter Summary ---
Author Organization [facility] Address [address] [place] [address] Care Team Providers Care Forensic Photographer Name Role Phone Maddy Romano MD Primary Care Provider Manas Ibarra MD Unavailable Zion Barton MD Unavailable Molina Charles MD Unavailable [phone] Karuna Maria OT Unavailable Unavaila Renu Paul NP Unavailable [phone] Eladio Mcrae MD Unavailable [phone] Marcy Schroeder RN Unavailable [phone] Chelsea Barker RN Unavailable Unavail able Encounter Details Date Type Department Care Team (Latest Contact Info) Description 12/16/2024 Results Follow-Up [facility] Transplant Liver [address] [facility] [address] [place] [address] Chelsea Barker, RN Comprehensive metabolic panel Social History Tobacco Use Types Packs/Day Years Used Date Smoking Tobacco: Former Cigarettes 0.5 51 1 970 - 2020 Smokeless Tobacco: Never [facility] Utilities Answer Date Recorded In the past 12 months has th e electric, gas, oil, or water [employer] threatened to shut off services in your [...] any clubs o r organizations such as jewish groups, unions, fraternal or athletic groups, or [...] any time in the past 12 m [facility], were you homeless or living [...] on file Legal Sex Female 8:22 AM 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 Gender Identity Female 11/15/2021 2:30 AM CDT [...] on filedocumented in this encounter Care Teams Forensic Photographer Relationship Specialty Start Date End Date Maddy Romano MD [address] [place] [address] PCP - General 09/28/16 Manas Ibarra MD [address] [place] [address] Referring Physician Thoracic Surgery 11/05/18 Zion Barton MD [address] [place] [address] Radiation Oncologist Radiation Oncology 05/05/19 Molina Charles MD 1 [facility] [address] [place] [address] Referring Physician Transplant Hepatology 12/15/20 Karuna Maria, OT Occupational Therapist Occupational Therapy 09/20/22 Renu Treviño NP [address] [facility] [address] [place] [address] Nurse Practitioner Radiation Oncology 11/08/22 Eladio Mcrae MD [address] [place] [address] Referring Physician Obstetrics and Gynecology 11/15/22 Marcy Schroeder, RN [address] [place], [place] [address] Hides Inspector 04/27/24 Chelsea Barker, career development facilitatorHides Inspector 11/13/24 documented as of this encounter
--- OUTSIDE RECORDS SUMMARY | 2025-02-17 14:07 | XMS_ITS | Clinical Summary ---
Author Organization [facility] Address [address] [place] [address] Care Team Providers Care Hydraulic Governor Assembler Name Role Phone Maddy Romano MD Primary Care Provider Manas Ibarra MD Unavailable Zion Barton MD Unavailable [phone] Molina Charles MD Unavailable [phone] Karuna Maria OT Unavailable Unavaila Renu Paul NP Unavailable [phone] Eladio Mcrae MD Unavailable Marcy Schroeder RN Unavailable [phone] Chelsea Barker RN Unavailable Unavail able [...] stage 3a chronic kidney disease, unspecified whether halfway insulin use (HCC) Will use 1 sensor [...] 2 diabetes mellitus without complication, 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 100 each 10/02/19 25 Active blood-glucose meter,continuous (Dexcom G7 Library Attendant) misc Use as directed. 1 each 10/02/19 [...] MG) BY MOUTH TWICE DAILY 60 tablet 12/23/19 25 Active insulin glargine (LANTUS) 100 [...] 10/10/2022 Assessment & Plan (10/12/2022 12:20 PM STEAMFITTER): Episode of atrial flutter overnight with RVR up to 140s. Patient asymptomatic, normotensive. IV metoprolol X2 given to achieve rate control. [id number] vasc score of 3. TTE from 09/03 without valvular abnormalities. No new episodes today. Lytes within normal limits. 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 Lovenox is not ideal given her platelet count less than 100. Her INR is too high to consider warfarin. Anemia 10/05/2022 Assessment & Plan (10/11/2022 12:28 PM STEAMFITTER): - Hgb has down trended from 8 [...] 10/05/2022 Assessment & Plan (10/11/2022 12:45 PM STEAMFITTER): -Continue home dose of metoprolol 25mg BID Hepatic encephalopathy 07/31/2022 Assessment & Plan (03/06/2023 5:49 PM CDT): Good control on current medical management. No changes indicated. Assessment & Plan (08/03/2022 1:05 PM STEAMFITTER): Pt with hx of LYONS cirrhosis presenting with progressively worsening mental status over past several weeks. On initial examination patient was AAOx1, on subsequent exam she is now AAOx2 with appropriate responses. NH3 75. Unfortunately no safe area for bedside diagnostic paracentesis. Slurred speech and concerns for swallowing. CLINIC SUPERVISOR completed swallow study and normal. Head CT: No acute intracranial abnormality. -Awaiting Liver MRI -Increased Lactulose to 4x daily (only 1 stool on 08/02) - Rifaximin and Lactulose (goal 3-5 bowel movements) - Fall precautions. - PT/OT: Home with assistance. Assessment & Plan (08/02/2022 2:34 PM STEAMFITTER): Pt with hx of LYONS cirrhosis presenting with progressively worsening mental status over past several weeks. On initial examination patient was AAOx1, on subsequent exam she is now AAOx2 with appropriate responses. NH3 75. Unfortunately no safe area for bedside diagnostic paracentesis. Slurred speech and concerns for swallowing. CLINIC SUPERVISOR completed swallow study and normal. Head CT: No acute intracranial abnormality. - Rifaximin and Lactulose (goal 3-5 bowel movements) - Fall precautions. - PT/OT: Home with assistance. - CLINIC SUPERVISOR completed bedside swallow and Normal Assessment & Plan (08/01/2022 3:28 PM STEAMFITTER): Pt with hx of LYONS cirrhosis presenting [...] concerns for swallowing. - Fall precautions. - CLINIC SUPERVISOR/PT/OT Consults. Assessment & Plan (08/01/2022 4:16 AM STEAMFITTER): Pt with hx of LYONS cirrhosis presenting [...] mellitus Assessment & Plan (10/12/2022 2:58 PM STEAMFITTER): Previously on dose reduced insulin regimen at OSH 20u lantus, 7u tid lispro + ssi. - Her blood sugars were initially on the lower side (90-100) in setting of poor po intake and TR. Continue SSI only for now and will uptitrate as needed. - Continue Lantus 10u/daily + lispro 4TID Assessment & Plan (08/03/2022 1:09 PM STEAMFITTER): Home regimen of toujeo 42 units + SSI. -Lantus, Lispro TID AC and SSI -No Juice Diet -Consistent Carb+ 2gm NA diet. -CTM BGL Assessment & Plan (08/02/2022 2:38 PM STEAMFITTER): Home regimen of toujeo 42 units + SSI. -Lantus, Lispro TID AC and SSI -No Juice Diet -Consistent Carb+ 2gm NA diet. -CTM BGL Assessment & Plan (08/01/2022 3:26 PM STEAMFITTER): Home regimen of toujeo 42 units + SSI. Given TR and decreased PO intake, insulin regimen reduced to Lantus 20units. - Continue on 2g Na + DM2 diet - CTM BGL Assessment & Plan (08/01/2022 4:17 AM STEAMFITTER): Home regimen of toujeo 42 units + [...] (10/22/2022): Added automatically from request for surgery [id number] Volume overload 10/06/2022 05/29/2024 Assessment & Plan (10/10/2022 1:09 PM STEAMFITTER): In the setting of LYONS cirrhosis. Diuretics [...] (08/22/2022): Added automatically from request for surgery [id number] Portal vein thrombosis 08/01/202208/22 Assessment & Plan (08/03/2022 1:09 PM STEAMFITTER): -Apixaban 2.5mg BID Assessment & Plan (08/02/2022 2:39 PM STEAMFITTER): -Apixaban 2.5mg BID Assessment & Plan (08/01/2022 3:27 PM STEAMFITTER): -Apixaban 2.5mg BID Assessment & Plan (08/01/2022 4:17 AM STEAMFITTER): Continue home apixaban LYONS (nonalcoholic steatohepatitis) 11/02/2021 07/15/2024 Abnormal mammogram of right breast 11/02/2020 08/22/2022 Preop cardiovascular exam 09/23/2019 Overview (09/23/2019): Added automatically from request for surgery [id number] Colon cancer screening 04/21/201908/22 Overview (04/21/2019): Added automatically from request for surgery [id number] Esophageal varices without bleeding (CMS/HCC) 04/21/20 19 08/22/2022 Overview (04/21/2019): Added automatically from request for surgery [id number] Steatosis of liver 05/20/2017 prison current use of ant icoagulant therapy 07/26/2016 08/22/2022 Neutropenia 07/14/2015 07/15/2024 Portal vein thrombosis 07/14/201508/22 BMI 45.0-49.9, adult 11/18/2014 024 Hepatic cirrhosis 05/20/2014 10/05/2022 Abnormal magnetic resonance imaging study 05/20/2014 08/22/2022 Biliary colic 05/10/2014 08/22/2022 Lesion of liver 04/30/2014 08/22/2022 Decreased granulocyte count 01/14/2014 07/15/2024 Lymphopenia 03/17/2013 07/15/2024 Rash 03/25/2012 08/22/2022 Encounters Date Type Department Care Team Description [address] [facility] Transplant Liver [address] [facility] [address] [phone] [place] [address] Chelsea Barker, TYRA 5 Results Follow-Up [facility] [address] 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 Liver [address] [facility] [address] [phone] [place] [address] Chelsea Barker, TYRA 5 Telephone [facility] Liver [address] [facility] [address] [phone] [place] [address] Chelsea Barker, TYRA [address] [facility] Liver [address] [facility] [address] [phone] [place] [address] Chelsea Barker, TYRA 5 10:00 AM CDT - 5 11:59 PM CDT Hospital Encounter [address] [address] ESRD (end stage renal diseas e) (HCC) Discharge Disposition: Discharge to home or self care 5 3:25 PM CDT Lab [facility] ([facility]) [address] [place] [address] Cirrhosis of liver without ascites, unspecified hepatic cirrhosis type (HCC) 5 Telephone [facility] Liver [address] [facility] [address] [place] [address] Chelsea Barker, TYRA 5 Telephone [facility] Liver [address] [facility] [address] [place] [address] Chelsea Barker, TYRA 5 Telephone [facility] Metabolism and Lipid [address] [place] [address] 13th [place] [address] Katie Yates RN 5 Telephone [facility] Liver [address] [facility] [address] [phone] [place] [address] Chelsea Barker, TYRA 5 Results Follow-Up [facility] Liver [address] [facility] [address] [place] [address] Chelsea Barker, TYRA Comprehensive metabolic panel 5 10:00 AM CDT - 5 11:59 PM CDT Hospital Encounter [address] [address] ESRD (end stage renal diseas e) (HCC) Discharge Disposition: Discharge to home or self care [address] [facility] Transplant Liver [address] [facility] [address] Mailstop -09-1 [place] [address] Chelsea Barker RN 5 9:15 AM CDT - 5 9:45 AM CDT Surgery [facility] [address] [place] [address] Mercy Adler MD PhD ESOPHAGOGASTRODUODENOSCOPY 5 9:11 AM CDT Anesthesia Event [facility] [address] [place] [address] Ezequiel Waldron MD 5 8:08 AM CDT - 5 10:14 AM CDT Hospital Encounter [facility] [address] [place] [address] Mercy Adler MD PhD Discharge Disposition: Discharge to home or self care [address] [facility] Liver [address] [facility] [address] [place], [place] [address] [place] [address] Chelsea Barker RN 5 Results Follow-Up [facility] Liver [address] [facility] [address] [facility] [place] [address] Chelsea Barker, RN EGD [address] [facility] Liver [address] 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 5 Results Follow-Up [facility] [address] [place] [address] [place] [address] Molina Charles MD Protime-INR, Comprehensive metabolic panel, eGFR, Additional followed-up results: 3 5 Telephone [facility] [address] [place] [address] [place] [address] [place] [address] Marina Estrella LPN GI Preprocedure 5 Telephone [facility] [address] [place] [address] [place] [address] [place] [id number] Kimberley Goodman cancel procedure 5 Telephone [facility] Liver [address] 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 5 9:00 AM CDT Office Visit [facility] [address] [place] [address] [place] [address] Taiwo Vázquez MD Portosystemic encephalopathy (HCC) (Primary [...] in adult; Hepatic encephalopathy (HCC) 5 Telephone [facility] [address] [place] [address] Tonya Malcolm RN GI Preprocedure 5 Orders Only [facility] [address] [facility] 1st [place] [phone] Timothy Pardo MD ESRD (end stage renal disease) (HCC) 5 2:00 PM CDT - 5 11:59 PM CDT Hospital Encounter [facility] [address] [place] [address] Discharge Disposition: Discharge to home or self care from Last 3 Months Immunizations Immunization Administration Dates Next Due Hep B Vaccine 01/22/2024,12/18/2023 Influenza, Quadrivalent, Spl it, Intramuscular 05/01/2019,05/26/2015 Influenza, Quadrivalent, Spl it, Preservative Free, Intramuscular 07/02/2023,04/29/2020,05/01/2019,05/09,05/08/2018,05/23/2017,05/17/2016 Influenza, Trivalent, IM (MDV) 04/28/2021,2013 Influenza, Trivalent, Preser vative Free, Intramuscular 05/29/2013 Ingage[employer] (J&J) SARS-CoV-2 Vaccination 10/17/2020 Pneumococcal Conjugate PCV [...] by TW Conv) Cancer Maternal Grandmother Ame Stephenson ly history of malignant neoplasm - (Added by TW Conv)/Family history of malignant neoplasm - (Added by TW Conv) Diabetes Maternal Grandmother Ame Chani ly history of diabetes mellitus - (Added by TW Conv)/Family history of diabetes mellitus - (Added by TW Conv) Allergy (severe) Sister Rosie Rendon Relation Name Status Comments Father Stuart Raphael Maternal Grandmother Ame Easton Sister Rosie Jenkinsalonso Alive Social History Tobacco Use Types Packs/Day Years Used Date Smoking Tobacco: Former Cigarettes 0.5 51 1 970 - 202 Smokeless Tobacco: Never Tobacco Cessation:Counseling Given: Not Answered [facility] Utilities Answer Date Recorded In the past 12 months has [employer], gas, oil, or water [employer] threatened to shut off services in your [...] week 10/05/2024 How often do you attend [facility] or mu-ism services? Never 10/05/2024 Do you belong to any clubs o r organizations such as mandaen groups, unions, fraternal or athletic groups, or [...] any time in the past 12 m [facility], were you homeless or living in a fci (including now)? No 10/05/2024 Personal Safety Answer Date Recorded Have you ever been in or are you currently in a harmful physical or emotional relationship or is someone making you feel afraid or unsafe? Denies 12/14/2024 Comments No Sex and Gender Information Value Date Recorded Sex Assigned at Not on file Legal Sex Female 8:22 AM STEAMFITTER Gender Identity Female 11/15/2021 2:30 AM CDT [...] 2023-2 5 season) 2024 07/02/2023, 09/11/2021, 10/17/2020 Influenza Vaccine (#1) 2025 , 07/02/2023, 04/28/2021, Additional history exists Lipid Panel 04/22/2025 04/22/2024, 03/13, 04/02/2024, Additional history exists Breast Cancer Screening-Mammogram 04/27/2025 024, 12/06/2021 Cervical Cancer Screening 04/28/2025 04/28/2024, Hemoglobin A1C 05/27/2025 11/25/2024, 09/12, 09/28/2024, Additional history exists eGFR 02/10/2026 02/10/2025, 0609/2024, 12/04/2024, Additional history exists Colon Cancer Screening-Colonoscopy 05/30/2032 05/30/2022, 10/26/2019 Zoster Vaccine Completed 02/17/2020, 05/29/2019 Colon Cancer Screening-CT Colonography Discontinued 05/30/2022, 10/26/2019 Colon Cancer Screening-DNA Stool Discontinued 05/30/20 22, 10/26/2019 Colon Cancer Screening-FIT Discontinued 05/30/2022, Colon Cancer Screening-Sigmoidoscopy Discontinued 05/30/2022, 10/26/2019 Hepatitis C Screening Completed 06/16/2023 , 06/16/2023, 01/05/2023, Additional history exists Procedures Procedure Name Priority [...] with long-term current use of insulin (HCC) [id number], TUMOR MARKER Routine 11/25/2024 9:40 AM CDT [...] HEPATITIS C ANTIBODY Routine 06/16/2023 6:09 AM STEAMFITTER COLONOSCOPY 05/30/2022 9:28 AM CDT ALBUMIN CREATININE RATIO, URINE Routine 03/01/2021 2:45 PM CDT Type 2 diabetes mellitus without complication, 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 (HCC) from Last 3 [...] ORDERABLES Fin al Result Performing Organization Address [facility] de Phone Number [facility] [address] [facility] [place] [address] * (ABNORMAL) Protime-INR (02/10/2025 2:13 PM CDT) PT 14.8(H) 9.7 - 13.0 sec INR 1.36(H) 0.90 - 1.20 [facility] Comment: Interpretive data Oral anticoagulant therapeutic ranges: Venous thromboembolism prophylaxis or treatment: 2.0-3.0 CARDIOLOGY Standard range: 2.0-3.0 High-intensity range: 2.5-3.5 Refer to indication-specific guidelines for appropriate target ranges for prosthetic heart valve replacement. Current interpretive data was last revised on 2019. Blood 02/10/2025 2:13 PM CDT 02/10/2025 2:55 PM CDT Taiwo Vázquez MD LAB BLOOD ORDERABLES Fin al Result Performing Organization Address [facility] de Phone Number [facility] [place] [address] * (ABNORMAL) Comprehensive metabolic panel (02/10/2025 2:13 PM CDT) Sodium 142 135 - 145 mmol/L Potassium, pl 3.9 3.3 - 4.9 mmol/L [facility] Chloride 105 97 - 110 mmol/L [facility] CO2 31 22 - 32 mmol/L [facility] Anion gap 6 2 - 15 mmol/L [facility] BUN 16 6 - 25 mg/dL [facility] Creatinine 1.68(H) 0.60 - 1.10 mg/dL [facility] Glucose 119 70 - 199 mg/dL [facility] Comment: Interpretive Data Fasting glucose >/= 126 [...] 2022. Calcium 8.8 8.5 - 10.3 mg/dL [facility] Bilirubin, total 1.6(H) 0.1 - 1.2 mg/dL [facility] Protein, pl 5.9(L) 6.5 - 8.5 g/dL [facility] Albumin 3.2(L) 3.5 - 5.0 g/dL [facility] Alk phos 99 40 - 130 Units/L [facility] ALT 20 7 - 45 Units/L [facility] AST 38 10 - 45 Units/L [facility] Blood 02/10/2025 2:13 PM CDT 02/10/2025 3:03 PM CDT Taiwo Vázquez MD LAB BLOOD ORDERABLES Fin al Result [facility] One [facility] Department [place] [address] * HLA Antibody Screen by PRA or SAB per Schedule (Class I and Class II) (01/20/2025 10:00 AM CDT) Blood 01/20/2025 10:0 0 AM CDT Narrative HISTOTRAC - STEAMFITTER Sample received in lab. Single Antigen Antibody [...] a method developed and validated by the [facility] HLA laboratory based on an FDA-approved IVD kit (LABScreen Single-Antigen, [employer], [place], [place]). All patient serum samples are pretreated with EDTA before the screen to prevent complement interference. Additional serum treatments, such as adsorption and DTT treatment, may be performed as indicated. Interpretive comments: Low risk: MFI [id number]. Moderate risk: MFI [id number]. Increased risk: MFI >/= 5000. The presence [...] antigens to avoid. Testing performed at the [facility], [address] [place] [address], 5th floor, [place], [address]. CLIA # [id number]. Rani Smith, Ph.D., Model Maker Plastic, HLA Laboratory Aurelio Palafox M.D., Ph.D., Distillery Worker, HLA Laboratory Norma Talamantes, Ph.D., CLIA Distillery Worker, [facility] Current methodology [...] Inclusion of Race in Diagnosing Kidney Disease, CARLOSN 2020). The CKD-EPI equation should not be used for patients with unstable renal function and has not been validated in children and those over 70. Current interpretive data was last reviewed 2021. Blood 01/11/2025 1:08 PM CDT 01/11/2025 1:51 PM CDT Molina Charles MD LAB BLOOD ORDERABLES Final Result Performing Organization Address [facility] de Phone Number [facility] Department [place] [address] * (ABNORMAL) Protime-INR (01/11/2025 1:08 PM CDT) PT 15.8(H) 9.7 - 13.0 sec INR 1.45(H) 0.90 - 1.20 [facility] Comment: Interpretive data Oral anticoagulant therapeutic ranges: Venous thromboembolism prophylaxis or treatment: 2.0-3.0 CARDIOLOGY Standard range: 2.0-3.0 High-intensity range: 2.5-3.5 Refer to indication-specific guidelines for appropriate target ranges for prosthetic heart valve replacement. Current interpretive data was last revised on 2019. Blood 01/11/2025 1:08 PM CDT 01/11/2025 1:45 PM CDT Molina Charles MD LAB BLOOD ORDERABLES Final Result Performing Organization Address [facility] de Phone Number [facility] Department [place] [address] * (ABNORMAL) Comprehensive metabolic panel (01/11/2025 1:08 PM CDT) Sodium 141 135 - 145 mmol/L Potassium, pl 3.6 3.3 - 4.9 mmol/L [facility] Chloride 105 97 - 110 mmol/L [facility] CO2 29 22 - 32 mmol/L [facility] Anion gap 7 2 - 15 mmol/L [facility] BUN 17 6 - 25 mg/dL [facility] Creatinine 1.56(H) 0.60 - 1.10 mg/dL [facility] Glucose 150 70 - 199 mg/dL [facility] Comment: Interpretive Data Fasting glucose >/= 126 [...] 2022. Calcium 8.7 8.5 - 10.3 mg/dL [facility] Bilirubin, total 1.9(H) 0.1 - 1.2 mg/dL [facility] Protein, pl 6.4(L) 6.5 - 8.5 g/dL [facility] Albumin 3.2(L) 3.5 - 5.0 g/dL [facility] Alk phos 97 40 - 130 Units/L [facility] ALT 17 7 - 45 Units/L [facility] AST 32 10 - 45 Units/L [facility] Blood 01/11/2025 1:08 PM CDT 01/11/2025 1:45 PM CDT Molina Charles MD LAB BLOOD ORDERABLES Final Result [facility] One [facility] Department [place] [address] * HLA Antibody Screen by PRA or SAB per Schedule (Class I and Class II) (12/15/2024 10:00 AM CDT) Blood 12/15/2024 10:0 0 AM CDT Narrative HISTOTRAC - STEAMFITTER Sample received in lab and stored. No [...] Units/L TXP NO LAB FOUND Blood 12/15/2024 Historical Provider LAB BLOOD ORDERABLES Edit ed [...] Female Attending MD: Mercy Adler M.D. Room: [facility] ENDOSCOPY ROOM 03 Note Status: Finalized Procedure: [...] and oxygen saturations were monitored continuously. The [id number] was introduced through the mouth, and advanced [...] - [facility] - [facility] to [facility] clinic as previously scheduled. Attending Participation: I personally performed the entire procedure. Electronically signed by Mercy Adler MD Mercy Adler M.D. 12/14/2024 9:32:29 AM Number of Addenda: 0 Note Initiated On: 12/14/2024 8:57 AM us Mercy Adler MD PhD ENDOSCOPY PROC EDURES Final Result * POCT glucose (12/14/2024 8:56 AM CDT) Pathologist [facility] Glucose, POC 131 70 - 199 mg/dL Comment: Interpretive Data Glucose is assumed to be non-fasting. Fasting Glucose reference ranges are: 0 - 150 years: 70 mg/dL - 99 mg/dL Current interpretive data was last revised on 2014. POC Performer [id number] CHARISSA ELIAS POC Device Number [id number] CHARISSA ELIAS Blood 12/14/2024 8:56 AM CDT 12/14/2024 8:56 AM CDT us Mercy Adler MD PhD LAB POCT ORDER RAVEN - DEVICE Final Result CHARISSA DUNNEWCH [id number] [facility] [address] * (ABNORMAL) eGFR (12/04/2024 1:50 PM CDT) Pathologist [facility] eGFR 39(L) >=60 mL/min/1. 73 m2 Comment: [...] us Taiwo Vázquez MD LAB BLOOD ORDERABLES [facility] al Result [facility] One [facility] Department [place] [address] * (ABNORMAL) Differential, auto (12/04/2024 1:50 PM CDT) Pathologist [facility] Neutrophil abs 2.07 1.50 - 6.50 K/cumm Imm gran abs 0.01 0.00 - 0.10 K/cumm [facility] Lymphocyte abs 0.76(L) 0.80 - 3.30 K/cumm [facility] Monocyte abs 0.28 0.20 - 0.80 K/cumm [facility] Eosinophil abs 0.53(H) 0.00 - 0.50 K/cumm [facility] Basophil abs 0.02 0.00 - 0.10 K/cumm [facility] Neutrophil pct 56.5 % [facility] Comment: Interpretive Data Percent cell count reference ranges are not reported, since discordance with absolute values may lead to misinterpretation of CBC data. Current Interpretive Data was last revised on 2017. Imm gran pct 0.3 % [facility] Comment: Interpretive Data Percent cell count reference ranges are not reported, since discordance with absolute values may lead to misinterpretation of CBC data. Current Interpretive Data was last revised on 2017. Lymphocyte pct 20.7 % [facility] Comment: Interpretive Data Percent cell count reference ranges are not reported, since discordance with absolute values may lead to misinterpretation of CBC data. Current Interpretive Data was last revised on 2017. Monocyte pct 7.6 % [facility] Comment: Interpretive Data Percent cell count reference ranges are not reported, since discordance with absolute values may lead to misinterpretation of CBC data. Current Interpretive Data was last revised on 2017. Eosinophil pct 14.4 % [facility] Comment: Interpretive Data Percent cell count reference ranges are not reported, since discordance with absolute values may lead to misinterpretation of CBC data. Current Interpretive Data was last revised on 2017. Basophil pct 0.5 % [facility] Comment: Interpretive Data Percent cell count reference ranges are not reported, since discordance with absolute values may lead to misinterpretation of CBC data. Current Interpretive Data was last revised on 2017. Blood 12/04/2024 1:50 PM CDT 12/04/2024 3:08 PM CDT us Taiwo Vázquez MD LAB BLOOD ORDERABLES Fin al Result [facility] Department [place] [address] * (ABNORMAL) CBC with auto differential (12/04/2024 1:50 PM CDT) WBC 3.67(L) 3.80 - 9.90 K/cumm Hgb 10.4(L) 11.9 - 15.5 g/dL [facility] Hct 30.5(L) 35.6 - 45.5 % [facility] Plt 53(L) 150 - 400 K/cumm [facility] MPV 11.9 9.1 - 12.3 fL [facility] RBC 3.29(L) 3.90 - 5.20 M/cumm [facility] MCV 92.7 81.3 - 96.4 fL [facility] MCH 31.6 27.1 - 33.3 pg [facility] MCHC 34.1 32.3 - 35.7 g/dL [facility] RDW CV 14.6 11.1 - 14.9 % [facility] RDW SD 49.7(H) 35.7 - 48.1 fL [facility] NRBC abs 0.00 0.00 - 0.01 K/cumm [facility] Blood 12/04/2024 1:50 PM CDT 12/04/2024 3:08 PM CDT Taiwo Vázquez MD LAB BLOOD ORDERABLES Fin al Result Performing Organization Address [facility] de Phone Number [facility] [place] [address] * (ABNORMAL) Protime-INR (12/04/2024 1:50 PM CDT) [facility] PT 15.6(H) 9.7 - 13.0 sec INR 1.43(H) 0.90 - 1.20 [facility] Comment: Interpretive data Oral anticoagulant therapeutic ranges: Venous thromboembolism prophylaxis or treatment: 2.0-3.0 CARDIOLOGY Standard range: 2.0-3.0 High-intensity range: 2.5-3.5 Refer to indication-specific guidelines for appropriate target ranges for prosthetic heart valve replacement. Current interpretive data was last revised on 2019. Blood 12/04/2024 1:50 PM CDT 12/04/2024 3:08 PM CDT Taiwo Vázquez MD LAB BLOOD ORDERABLES Fin al Result Performing Organization Address [facility] de Phone Number [facility] [place] [address] * (ABNORMAL) Bilirubin, direct (12/04/2024 1:50 PM CDT) Bilirubin, direct 0.8(H) 0.1 - 0.3 mg/dL Blood 12/04/2024 1:50 PM CDT 12/04/2024 3:08 PM CDT Taiwo Vázquez MD LAB BLOOD ORDERABLES [facility] al Result [facility] Department [place] [address] * (ABNORMAL) Comprehensive metabolic panel (12/04/2024 1:50 PM CDT) Sodium 145 135 - 145 mmol/L Potassium, pl 3.5 3.3 - 4.9 mmol/L [facility] Chloride 108 97 - 110 mmol/L [facility] CO2 33(H) 22 - 32 mmol/L [facility] Anion gap 4 2 - 15 mmol/L [facility] BUN 16 6 - 25 mg/dL [facility] Creatinine 1.49(H) 0.60 - 1.10 mg/dL [facility] Glucose 139 70 - 199 mg/dL [facility] Comment: Interpretive Data Fasting glucose >/= 126 [...] 2022. Calcium 8.9 8.5 - 10.3 mg/dL [facility] Bilirubin, total 1.8(H) 0.1 - 1.2 mg/dL [facility] Protein, pl 6.0(L) 6.5 - 8.5 g/dL [facility] Albumin 3.2(L) 3.5 - 5.0 g/dL [facility] Alk phos 98 40 - 130 Units/L [facility] ALT 17 7 - 45 Units/L [facility] AST 34 10 - 45 Units/L [facility] Blood 12/04/2024 1:50 PM CDT 12/04/2024 3:08 PM CDT Taiwo Vázquez MD LAB BLOOD ORDERABLES Fin al Result Performing Organization Address [facility] Co de Phone Number [facility] [place] [address] * (ABNORMAL) eGFR (11/25/2024 9:40 AM CDT) Pathologist [facility] eGFR 48(L) >=60 mL/min/1. 73 m2 [...] ORDERABLES Fin al Result Performing Organization Address [facility]/ZIP Co de Phone Number [facility] [place] [address] * (ABNORMAL) Differential, auto (11/25/2024 9:40 AM CDT) Neutrophil abs 2.43 1.50 - 6.50 K/cumm Imm gran abs 0.00 0.00 - 0.10 K/cumm [facility] Lymphocyte abs 0.68(L) 0.80 - 3.30 K/cumm [facility] Monocyte abs 0.33 0.20 - 0.80 K/cumm [facility] Eosinophil abs 0.63(H) 0.00 - 0.50 K/cumm [facility] Basophil abs 0.02 0.00 - 0.10 K/c[address] [facility] Neutrophil pct 59.4 % [facility] Comment: Interpretive Data Percent cell count reference ranges are not reported, since discordance with absolute values may lead to misinterpretation of CBC data. Current Interpretive Data was last revised on 2017. Imm gran pct 0.0 % [facility] Comment: Interpretive Data Percent cell count reference ranges are not reported, since discordance with absolute values may lead to misinterpretation of CBC data. Current Interpretive Data was last revised on 2017. Lymphocyte pct 16.6 % [facility] Comment: Interpretive Data Percent cell count reference ranges are not reported, since discordance with absolute values may lead to misinterpretation of CBC data. Current Interpretive Data was last revised on 2017. Monocyte pct 8.1 % [facility] Comment: Interpretive Data Percent cell count reference ranges are not reported, since discordance with absolute values may lead to misinterpretation of CBC data. Current Interpretive Data was last revised on 2017. Eosinophil pct 15.4 % [facility] Comment: Interpretive Data Percent cell count reference ranges are not reported, since discordance with absolute values may lead to misinterpretation of CBC data. Current Interpretive Data was last revised on 2017. Basophil pct 0.5 % [facility] Comment: Interpretive Data Percent cell count reference ranges are not reported, since discordance with absolute values may lead to misinterpretation of CBC data. Current Interpretive Data was last revised on 2017. Blood 11/25/2024 9:40 AM CDT 11/25/2024 10:10 AM CDT Taiwo Vázquez MD LAB BLOOD ORDERABLES Fin al Result Performing Organization Address [facility] Co de Phone Number [facility] Department [place] [address] * (ABNORMAL) CBC with auto differential (11/25/2024 9:40 AM CDT) [facility] WBC 4.09 3.80 - 9.90 K/cumm Hgb 9.9(L) 11.9 - 15.5 g/dL [facility] Hct 30.5(L) 35.6 - 45.5 % [facility] Plt 52(L) 150 - 400 K/cumm [facility] MPV 11.3 9.1 - 12.3 fL [facility] RBC 3.22(L) 3.90 - 5.20 M/cumm [facility] MCV 94.7 81.3 - 96.4 fL [facility] MCH 30.7 27.1 - 33.3 pg [facility] MCHC 32.5 32.3 - 35.7 g/dL [facility] RDW CV 14.9 11.1 - 14.9 % [facility] RDW SD 51.8(H) 35.7 - 48.1 fL [facility] NRBC abs 0.00 0.00 - 0.01 K/cumm [facility] Blood 11/25/2024 9:40 AM CDT 11/25/2024 10:10 AM CDT Taiwo Vázquez MD LAB BLOOD ORDERABLES Fin al Result Performing Organization Address [facility]/ZIP Co de Phone Number [facility] Department [place] [address] * [id number], Tumor Marker (11/25/2024 9:40 AM CDT) [facility] alpha Fetoprotein <2.0 <=8.3 ng/mL Comment: Interpretive [...] 2018;[id number] Katya House et al. Clin Chem 2014;[id number]. Current interpretive data was last revised 2022. Blood 11/25/2024 9:40 AM CDT 11/25/2024 10:10 AM CDT Taiwo Vázquez MD LAB BLOOD ORDERABLES Fin al Result Performing Organization Address [facility] de Phone Number [facility] Department [place] [address] * (ABNORMAL) Protime-INR (11/25/2024 9:40 AM CDT) PT 15.7(H) 9.7 - 13.0 sec INR 1.44(H) 0.90 - 1.20 [facility] Comment: Interpretive data Oral anticoagulant therapeutic ranges: Venous thromboembolism prophylaxis or treatment: 2.0-3.0 CARDIOLOGY Standard range: 2.0-3.0 High-intensity range: 2.5-3.5 Refer to indication-specific guidelines for appropriate target ranges for prosthetic heart valve replacement. Current interpretive data was last revised on 2019. Blood 11/25/2024 9:40 AM CDT 11/25/2024 10:15 AM CDT Taiwo Vázquez MD LAB BLOOD ORDERABLES Fin al Result Performing Organization Address [facility]/ZIP Co de Phone Number [facility] [place] [address] * Hemoglobin A1c (11/25/2024 9:40 AM CDT) [facility] Hgb A1C 5.5 4.0 - 5.6 % Estimated Average Glucose 111 mg/dL [facility] Comment: The ADA recommends reporting an estimated [...] ORDERABLES Fin al Result Performing Organization Address [facility] de Phone Number [facility] Department [place] [address] * (ABNORMAL) Bilirubin, direct (11/25/2024 9:40 AM CDT) [facility] Bilirubin, direct 0.9(H) 0.1 - 0.3 mg/dL Blood 11/25/2024 9:40 AM CDT 11/25/2024 10:10 AM CDT Taiwo Vázquez MD LAB BLOOD ORDERABLES Fin al Result Performing Organization Address [facility] [place] [address] * (ABNORMAL) Comprehensive metabolic panel (11/25/2024 9:40 AM CDT) [facility] Sodium 145 135 - 145 mmol/L Potassium, pl 3.4 3.3 - 4.9 mmol/L [facility] Chloride 108 97 - 110 mmol/L [facility] CO2 31 22 - 32 mmol/L [facility] Anion gap 6 2 - 15 mmol/L [facility] BUN 13 6 - 25 mg/dL [facility] Creatinine 1.26(H) 0.60 - 1.10 mg/dL [facility] Glucose 129 70 - 199 mg/dL [facility] Comment: Interpretive Data Fasting glucose >/= 126 [...] 2022. Calcium 8.6 8.5 - 10.3 mg/dL [facility] Bilirubin, total 2.1(H) 0.1 - 1.2 mg/dL [facility] Protein, pl 5.8(L) 6.5 - 8.5 g/dL [facility] Albumin 3.1(L) 3.5 - 5.0 g/dL [facility] Alk phos 96 40 - 130 Units/L [facility] ALT 19 7 - 45 Units/L [facility] AST 30 10 - 45 Units/L [facility] Blood 11/25/2024 9:40 AM CDT 11/25/2024 10:10 AM CDT us Taiwo Vázquez MD LAB BLOOD ORDERABLES Fin al Result [facility] Department of Laboratories [place], [place] [id number] * HLA Antibody Screen by PRA or SAB per Schedule (Class I and Class II) (11/19/2024 2:00 PM CDT) Blood 11/19/2024 2:00 PM CDT Narrative HISTOTRAC - STEAMFITTER Sample received in lab. Single Antigen Antibody [...] a method developed and validated by the [facility] HLA laboratory based on an FDA-approved IVD kit (LABScreen Single-Antigen, [employer], [place], [place]). All patient serum samples are pretreated with EDTA before the screen to prevent complement interference. Additional serum treatments, such as adsorption and DTT treatment, may be performed as indicated. Interpretive comments: Low risk: MFI 9520-1210. Moderate risk: MFI 5213-6159. Increased risk: MFI >/= 5000. The presence [...] antigens to avoid. Testing performed at the [facility], [address] [place] [address], [place], [address]. CLIA # [id number]. Rani Smith, Ph.D., Model Maker Plastic, HLA Laboratory Aurelio Palafox M.D., Ph.D., Distillery Worker, [facility] Norma Talamantes, Ph.D., CLIA Distillery Worker, [facility] Clinical Laboratories Current methodology and interpretive comments last revised on 09/06/2022. Timothy Pardo MD LAB BLOOD ORDERABL ES Final Result HISTOTRAC * Pap and High Risk HPV and Genotyping (Cytology Component) (04/28/2024 10:41 AM CDT) Thin prep (Pap test) 04/28/2024 10:41 AM CDT 04/28/2024 1:00 PM CDT Narrative PATHOLOGY [facility] - 05/04/2024 4:21 PM CDT EPIC results best viewed via link to PDF [facility] Chelsea Cronin [facility] [place] [address] Note to Patients: This report may contain [...] F : 1960 (Age: 63) Address: [address] [place], [place] [id number] Hospital #: [id number] Service: Medical Location: [place] [address] Patient Type: [facility] Inpatient Taken: 04/28/2024 Received: 04/28/2024 Accessioned: 04/28/2024 [...] this test have been verified by the [facility] Molecular Infectious Disease laboratory. Correlate with reported cytology results, as applicable. Interpretive data last revised 23 martina/05/04/2024 16:21 JEANNIE Worthington(ASC) Report Electronically Reviewed and [...] clinical information and biopsy results as indicated. [facility] Clinical Laboratory Improvement Amendments (CLIA) mandate that cytologic and histologic results be correlated for laboratory research associate quality control qc & improvement standards. FOR ALL HIGH-GRADE CASES [...] determined by the Surgical Pathology Department at [facility] as part of an [...] determined by the Surgical Pathology Department of [facility]. It has not been cleared or approved by the U. S. Food and Drug Administration. Eladio Carey MD LAB CYTOLOGY ORDERABLES Final Result PATHOLOGY [facility] 3rd Floor [place], [place] [phone] * Screening Mammogram Bilateral W Pal (04/27/2024 1:55 PM CDT) Anatomical Region Laterality Modality Breast Bilateral Mammography Narrative 04/27/2024 1:52 PM CDT Mammogram Technique: Bilateral Digital Breast Tomosynthesis, Bilateral C-view 2D Screening mammogram. Views obtained: bilateral craniocaudal and bilateral mediolateral oblique. Computer Aided Detection was performed. Mammogram Findings: The present examination has been compared to prior imaging studies performed at [facility] on 05/15/2021 and 12/06/2021. [...] compared to prior imaging studies performed at [facility] on 05/15/2021 and 12/06/2021. [...] revised on 2018. Triglycerides 43 <=149 mg/dL [facility] Comment: Interpretive Data Ages < or = [...] revised on 2018. HDL 64 >=40 mg/dL [facility] Comment: Interpretive Data Ages < or = [...] on 2018. LDL, calculated 47 <=129 mg/dL [facility] Comment: Interpretive Data Ages < or = [...] revised on 2024. Non-HDL Cholesterol 58 mg/dL [facility] Comment: Interpretive Data Ages < or = [...] last revised on 2018. Chol/HDL ratio 2 [facility] Blood 04/22/2024 12:5 8 AM CDT 04/22/2024 3:00 AM CDT us John Paul Reddy MD LAB BLOOD ORDERABLES Final Resul t [facility] Department [place] [address] * Hepatitis C antibody Blood (06/16/2023 6:09 AM STEAMFITTER) Hep C Ab Nonreactive Nonreactive [facility] Comment:Antibodies to HCV no t detected. Does NOT exclude the possibility of recent exposure to HCV. Current interpretive data was last revised on 22 Blood 06/16/2023 6:09 AM STEAMFITTER 06/16/2023 6:35 AM STEAMFITTER us Alejandro Frazier MD LAB MICROBIOLOGY - GENERAL ORDERABLES Final Result [facility] Department [place] [address] * COLONOSCOPY (05/30/2022 9:28 AM CDT) Anatomical Region Laterality Modality Other Narrative Procedure Note Pat Robins MD - 05/30/2022 9:28 AM CDT GI ENDOSCOPY [facility] Patient Name: Aleah Levine Procedure Date: 05/30/2022 9:28 AM Date of : 1960 Admit Type: Outpatient Age: 61 Gender: Female Attending MD: Pat Robins M.D. Room: [facility] ENDOSCOPY ROOM 3 Note Status: [...] The scope was passed under direct vision.The F [id number] endoscope was introducedthrough the anus and [...] medications. - Repeat colonoscopy in 10 years [facility]. - Return to referring physician in 10 years. Attending Participation: I personally performed the entire procedure. Electronically signed by Pat Robins MD Pat Robins M.D. 05/30/2022 10:31:01 AM . Number of Addenda: 0 Note Initiated On: 05/30/2022 9:28 AM Recognized by the [employer] [employer] for promoting quality in endoscopy Pat Robins MD ENDOSCOPY PROCEDURES Ju l Result * Albumin Creatinine Ratio, Urine (03/01/2021 2:45 PM CDT) Albumin Ur <12.0 mg/L [facility] Comment: Interpretive Data No reference range established. Current interpretive data was last revised 2018. Creatinine Ur 59.5 mg/dL [facility] Comment: Interpretive Data No reference range established. Current interpretive data was last revised 2018. Albumin Creatinine Ratio, Ur <20 1 - 29 mg/g [facility] Urine 03/01/2021 2:45 PM CDT 03/01/2021 3:41 PM CDT Oly Baker MD LAB URINE ORDER RAVEN Final Result [facility] Department of Laboratories [place], [place] [id number] from Last 3 Months or Most Recently Relevant to Health Maintenance Insurance [facility] Member Subscriber Plan / Payer (Ef fective 2018-Present) Name:Aleah Levine Relation to Subscriber:Not on file Subscriber ID:Not on file Payer ID:[id number] (NAIC) Type:[facility] Address: [facility] [id number] [address] ANTH ACCESS Member Subscriber Plan / Payer (Ef fective 2018-Present) Name:Aleah Levine Relation to Subscriber:Self Name:ALEAH LEVINE Payer ID:[id number] (NAIC) Type: [place] Address: [id number] Member Subscriber Plan / Payer (Ef fective 2021-Present) Name:Aleah Levine Amanda Relation to Subscriber:Self Name:Aleah Levine Payer ID:[id number] (NAIC) Type:TRA Address: [id number] [facility] MEDICARE ADVANTAGE [facility] MEDICARE ADVANTAGE TRANSPLANT [employer] MEDICARE RISK TRANSPLANT [employer] MEDICARE RISK Advance Directives For more information, please contact: [phone] * Full Code (Latest Code Status on [...] 8:35 AM 02/05/2023 7:30 PM Care Teams Hydraulic Governor Assembler Relationship Specialty Start Date End Date Maddy Romano MD [address] [place] [address] PCP - General 09/28/16 Manas Ibarra MD [address] [place], [place] [address] Referring Physician Thoracic Surgery 11/05/18 Zion Barton MD [address] [place], [place] [address] Radiation Oncologist Radiation Oncology 05/05/19 Molina Charles MD [address] [facility] [address] [place] [address] Referring Physician Transplant Hepatology 12/15/20 Karuna Maria, OT Occupational Therapist Occupational Therapy 09/20/22 Renu Treviño NP [address] [facility] [address] [place] [address] Nurse Practitioner Radiation Oncology 11/08/22 Eladio Mcrae MD [address] [place] [address] Referring Physician Obstetrics and Gynecology 11/15/22 Marcy Schroeder, RN [address] [place] [address] Director Of Recruitment 04/27/24 Chelsea Barker, carnival workerDirector Of Recruitment 11/13/24
== END 2025-02-17 13:54 | disposition home or self-care (01) ==
PROVIDERS: PCP Internal Medicine; Visit Provider Transplant Surgery
DX: N18.6 End stage renal disease (principal)
CPT/HCPCS: 36415

== ENCOUNTER 2025-03-05 11:23 | Outpatient (CLI) | payer MEDICARE, SELFPAY ==
--- OUTSIDE RECORDS SUMMARY | 2025-03-05 11:30 | XMS_ITS | Encounter Summary ---
Author Organization [facility] Healthcare Address [address] [place] [address] Care Team Providers Care Communication Lecturer Name Role Phone Maddy Romano MD Primary Care Provider Astrid Haq NP Unavailable Manas Ibarra MD Unavailable Zion Barton MD Unavailable Molina Charles MD Unavailable [phone] Inés Lemus RN Unavailable [phone] Karuna Maria OT Unavailable Unavaila Renu Paul NP Unavailable [phone] Eladio Mcrae MD Unavailable [phone] Marcy Schroeder RN Unavailable [phone] Briana Poe RN Unavailable [phone] Marina Le RN Unavailable [phone] Chelsea Barker RN Unavailable Unavail able Reason for Visit * Reason Onset Date Comments Ready to schedule 04/25/2022 Encounter Details Date Type Department Care Team (Late st Contact Info) Description 04/25/2022 Telephone [facility] Specialty Services [address] [place] [address] Miscellaneous, Not In File Ready to schedule [...] on file Legal Sex Female 8:22 AM LIGHT RAIL OPERATOR Gender Identity Female 11/15/2021 2:30 AM [...] COVID: Suspected 09/24/2024 09/24/2024 09/24/2024 3:13 PM LIGHT RAIL OPERATOR documented as of this encounter Care Teams Communication Lecturer Relationship Specialty Start Date End Date Maddy Romano MD [address] [place] [address] PCP - General 09/28/16 Astrid Haq NP [address] [place] [address] Nurse Practitioner Radiation Oncology 11/05/18 11/07/22 Manas Ibarra MD [address] [place] [address] Referring Physician Thoracic Surgery 11/05/18 Zion Barton MD [address] [place] [address] Radiation Oncologist Radiation Oncology 05/05/19 Molina Charles MD 1 [facility] [address] [place] [address] Referring Physician Transplant Hepatology 12/15/20 Inés Lemus, TYRA [address] [facility] [address] [place] [address] Investor Relations Manager 10/31/21 5 Karuna Maria, OT Occupational Therapist Occupational Therapy 09/20/22 Renu Treviño NP [address] [facility] [address] [place] [address] Nurse Practitioner Radiation Oncology 11/08/22 Eladio Mcrae MD [address] [place] [address] Referring Physician Obstetrics and Gynecology 11/15/22 Marcy Schroeder RN [address] [place] [address] Investor Relations Manager 04/27/24 Briana Poe, TYRA [address] [address] [facility] Outpatient [place] Worker 04/30/24 05/28/24 Marina Le RN [address] [place] [address] [place] [address] [facility] Outpatient [place] Worker 10/05/24 10/26/24 Chelsea Barker, cargo workerInvestor Relations Manager 11/13/24 documented as of this encounter
--- OUTSIDE RECORDS SUMMARY | 2025-03-05 11:30 | XMS_ITS | Encounter Summary ---
Author Organization [facility] Address [address] [place] [address] Phone Care Team Providers Care Software Development Intern Name Role Phone Maddy Romano MD Primary Care Provider Astrid Haq NP Unavailable Manas Ibarra MD Unavailable Zion Barton MD Unavailable Molina Charles MD Unavailable [phone] Inés Lemus RN Unavailable [phone] Karuna Maria OT Unavailable Unavaila Renu Paul NP Unavailable [phone] Eladio Mcrae MD Unavailable Marcy Schroeder RN Unavailable [phone] Briana Poe RN Unavailable Marina Le RN [...] on file Legal Sex Female 8:22 AM PAIN MANAGEMENT PHYSICIAN Gender Identity Female 11/15/2021 2:30 AM [...] COVID: Suspected 09/24/2024 09/24/2024 09/24/2024 3:13 PM PAIN MANAGEMENT PHYSICIAN documented as of this encounter Care Teams Software Development Intern Relationship Specialty Start Date End Date Maddy Romano MD [address] [place] [address] PCP - General 09/28/16 Astrid Haq NP [address] [place] [address] Nurse Practitioner Radiation Oncology 11/05/18 11/07/22 Manas Ibarra MD [address] [place] [address] Referring Physician Thoracic Surgery 11/05/18 Zion Barton MD [address] [place] [address] Radiation Oncologist Radiation Oncology 05/05/19 Molina Charles MD [address] [place] [address] [address] [place] [address] Referring Physician Transplant Hepatology 12/15/20 Inés Lemus, TYRA 4590 [facility] [address] [place] [address] Graphite Grinder 10/31/21 5 Karuna Maria, OT Occupational Therapist Occupational Therapy 09/20/22 Renu Treviño NP 4921 [facility] [address] [place] [address] Nurse Practitioner Radiation Oncology 11/08/22 Eladio Mcrae MD [address] [place] [address] Referring Physician Obstetrics and Gynecology 11/15/22 Marcy Schroeder RN [address] [place] [address] Graphite Grinder 04/27/24 Briana Poe, TYRA [address] [address] [facility] Outpatient Architectural Administrative Assistant 04/30/24 05/28/24 Marina Le RN [address] [address] [facility] Outpatient Architectural Administrative Assistant 10/05/24 10/26/24 Chelsea Barker, drawing machine operatorGraphite Grinder 11/13/24 documented as of this encounter
--- OUTSIDE RECORDS SUMMARY | 2025-03-05 11:30 | XMS_ITS | Clinical Summary ---
Author Organization [facility] Address [address] [place] [address] Care Team Providers Care Photography Editor Name Role Phone Maddy Romano MD Primary Care Provider [phone] Active Problems Problem Noted Date Diagnosed Date [...] patient's age to complete this topic Insurance [facility] Care Teams Photography Editor Relationship Specialty Start Date End Date Maddy Romano MD [address] [place] [address] PCP - General INTERNAL MEDICINE 01/16/23
--- OUTSIDE RECORDS SUMMARY | 2025-03-05 11:30 | XMS_ITS | Encounter Summary ---
Author Organization [employer] Address [address] [place] [address] Care Team Providers Care Set Up Mechanic Name Role Phone Unavailable Primary Care Provider Unavailabl e Reason for Visit * Reason Onset Date Comments TR on CKD 04/02/2024 Spoke w/Dr. Mueller Stroke/CVA 04/02/2024 Spoke w/Gladys @ Dr. Anthony's exchange Encounter Details Date Type Department Care Team (Late st Contact Info) Description 04/02/2024 Telephone [facility] Emergency [address] [place] [address] Marcos Newton MD [address] [place] [address] TR on CKD (Spoke w/Dr. Mueller); Stroke/CVA (Spoke w/Gladys @ Dr. Anthony's exchange) Social History Tobacco Use Types Packs/Day Years Used Date Smoking Tobacco: Some Days Cigarettes Smokeless Tobacco: Never Alcohol Use Standard Drinks/Week Comments Not Currently 0 (1 standard drink = 0.6 oz pur e alcohol) Not in a long time Comments Unknown Sex and Gender Information Value [...]
--- OUTSIDE RECORDS SUMMARY | 2025-03-05 11:30 | XMS_ITS | Patient Health Record ---
Author Organization [facility] Address [address] [place], [place] [id number] Care Team Providers Care Picker Machine Operator Name Role Phone IVAN HARDIN Unavailable [phone] Leisa Romano Unavailable Unavailable Allergies Allergen (clinical [...] 12/10/2024 Encounters Encounter Location Date Provider Diagnosis [address] [id number] 12/10/2024 IVANHELADIO HARDIN Tinea unguium B35.1 ; Pain in right toe(s) M79.674 ; Pain in left toe(s) M79.675 ; Atherosclerosis of [place] arteries of extremities with intermittent claudication, bilateral [...] toe(s) (ICD-10 - M79.675) 12/10/2024 Atherosclerosis [place] arteries of extremities with intermittent claudication, bilateral [...] not infected. As long as it gets batch attendant and fades we will monitor. If it gets dark, drains, changes color or shape than I would recommend biopsy Plan Of Treatment Next Appt Details Provider Name:BALDEV ARROYO, 03/18/2025 09:10:00 AM, [address] [place] [address], [id number], Insurance Providers Payer Name Payer Address Payer Phone Subscriber Number Group Number Insured Name Patient Relationship to Insured Coverage Start Date Coverage End Date [facility] [address] [address] [place], [place] [id number] [place] Self - patient is the insured Medical (General) History Medical History History ICD Code Pneumonia anemia asthma - mild intermittent Leg/Feet cramps Liver disease Sleep apnea Diabetic
--- OUTSIDE RECORDS SUMMARY | 2025-03-05 11:30 | XMS_ITS | Clinical Summary ---
Author Organization [facility] Address [address] [place] [address] Phone Care Team Providers Care Development Spec Name Role Phone Unavailable Primary Care Provider Unavailabl e Allergies No known active allergies Medications acetaminophen (TYLENOL) 325 mg tablet Take 325 mg by mouth every 8 hours. Active glucagon (BAQSIMI) 3 mg/spray [place], Non-Aerosol 1 [place]. GIVE 1 spray in one NOSTRIL ONE [...] Encounters Date Type Department Care Team Description 02/24/2025 External Device Data [facility]STRACTION Provider, Abstract 02/23/2025 External Device Data [facility] Provider, Abstract 01/26/2025 External Device Data [facility] [place] Provider, [...] STOOL Negative Negative 04/03/2024 3:27 AM CDT [facility] Stool STOOL SPECIMEN / Unknown Collection / Unknown 04/03/2024 1:23 AM CDT 04/03/2024 1:24 AM CDT us Marcos Newton MD BODY FLUIDS AND STOOLS Final R esult [facility] CLIA# [id number] [place] [address] * LIPID PANEL (04/03/2024 12:30 AM CDT) CHOLESTEROL 114 <200 mg/dL 04/03/2024 1:34 AM CDT [facility] TRIGLYCERIDE 62 <150 mg/dL 04/03/2024 1:34 AM CDT [facility] HDL 50 40 - 59 mg/dL 04/03/2024 1:34 AM CDT [facility] LDL CALCULATED 52 <100 mg/dL 04/03/2024 1:34 AM CDT [facility] NON-HDL CHOLESTEROL 64 <130 mg/dL 04/03/2024 1:34 AM CDT [facility] Blood Venipuncture / Unknown 04/03/2024 12:30 AM CDT 04/03/2024 1:04 AM CDT Narrative [facility] - 04/03/2024 1:34 AM CDT TOTAL CHOLESTEROL [...] Newton MD CHEMISTRY ORDERABLES Final Res ult Performing Organization Address [facility] Co de Phone Number [facility] CLIA# [id number] [address] [place] [address] * (ABNORMAL) HEMOGLOBIN A1C (04/02/2024 6:29 PM CDT) HEMOGLOBIN A1C 6.5(H) <=5.6 % 04/02/2024 7:01 PM CDT [facility] EST. AVG GLUCOSE, A1C 140 mg/dL 04/02/2024 7:01 PM CDT [facility] Blood Venipuncture / Unknown 04/02/2024 6:29 PM CDT 04/02/2024 6:34 PM CDT Narrative [facility] - 04/02/2024 7:01 PM CDT HGB A1C INTERPRETATION NORMAL: <5.7% PRE-DIABETES: 5.7 - 6.4% DIABETES: 6.5% OR GREATER Marcos Newton MD CHEMISTRY ORDERABLES Final Res ult Performing Organization Address [facility] Co de Phone Number [facility] R[facility]alo [facility] CLIA# [id number] [place] [address] from Last 3 Months or Most Recently Relevant to Health Maintenance Insurance RX OPT[employer] RX Member Subscriber Plan / Payer (Ef fective 2024-Present) Name:ChiragJuliana downingagnes Patel Relation to Subscriber:Self Name:Aleah Levine Amanda Payer ID:Not on file Group ID:[id number] Type:RX Medicare Part D Address: [address] Advance Directives For more information, please contact: [phone] * Full Code (Latest Code Status on File) Date Activated Date Inactivated Comments 04/02/2024 6:16 PM 04/06/2024 2:11 PM
--- OUTSIDE RECORDS SUMMARY | 2025-03-05 11:30 | XMS_ITS | Encounter Summary ---
Author Organization [facility] Address [address] [place] [address] Phone Care Team Providers Care Landscaping And Groundskeeping Laborer Name Role Phone Maddy Romano MD Primary Care Provider Astrid Haq NP Unavailable Manas Ibarra MD Unavailable Zion Barton MD Unavailable [phone] Molina Charles MD Unavailable [phone] Inés Lemus RN Unavailable [phone] Karuna Maria OT Unavailable Unavaila Renu Paul NP Unavailable Eladio Mcrae MD Unavailable Marcy Schroeder RN Unavailable [phone] Briana Poe RN Unavailable Marian Le RN Unavailable [phone] Chelsea Barker RN Unavailable Unavail able Encounter [...] on file Legal Sex Female 8:22 AM HANDS HANGER Gender Identity Female 11/15/2021 2:30 AM CDT [...] COVID: Suspected 09/24/2024 09/24/2024 09/24/2024 3:13 PM HANDS HANGER documented as of this encounter Care Teams Landscaping And Groundskeeping Laborer Relationship Specialty Start Date End Date Maddy Romano MD [address] [place] [address] PCP - General 09/28/16 Astrid Haq NP [address] [place], [place] [address] Nurse Practitioner Radiation Oncology 11/05/18 11/07/22 Manas Ibarra MD [address] [place], [place] [address] Referring Physician Thoracic Surgery 11/05/18 Zion Barton MD [address] [place], [place] [address] Radiation Oncologist Radiation Oncology 05/05/19 Molina Charles MD 1 [facility] [address] [place] [address] Referring Physician Transplant Hepatology 12/15/20 Inés Lemus, TYRA 4509 [facility] [address] [place] [address] Stacker Driver 10/31/21 5 Karuna Maria OT Occupational Therapist Occupational Therapy 09/20/22 Renu Treviño NP 4921 [facility] [address] [place] [address] Nurse Practitioner Radiation Oncology 11/08/22 Eladio Mcrae MD [address] [place] [address] Referring Physician Obstetrics and Gynecology 11/15/22 Marcy Schroeder, RN [address] [place] [address] Stacker Driver 04/27/24 Briana Poe TYRA 45[address] [facility] [address] [place] [address] SHOP Outpatient Tandem Mill Roller 04/30/24 05/28/24 Marina Le RN [address] [facility] [address] [place] [address] [facility] Outpatient Tandem Mill Roller 10/05/24 10/26/24 Chelsea Barker, carpet technicianStacker Driver 11/13/24 documented as of this encounter
--- OUTSIDE RECORDS SUMMARY | 2025-03-05 11:30 | XMS_ITS | Encounter Summary ---
Author Organization [facility] Address [address] [place] [address] Care Team Providers Care Chiropractic Physician Name Role Phone Maddy Romano MD Primary Care Provider Astrid Haq NP Unavailable Manas Ibarra MD Unavailable Zion Barton MD Unavailable [phone] Molina Charles MD Unavailable +[phone] Inés Lemus RN Unavailable [phone] Karuna Maria OT Unavailable Unavaila Renu Paul NP Unavailable [phone] Eladio Mcrae MD Unavailable [phone] Marcy Schroeder RN Unavailable [phone] Briana Poe RN Unavailable [phone] Marina Le RN Unavailable Chelsea Barker RN Unavailable Unavail able Reason for Visit * Reason Onset Date Comments Ready to scheduled 04/26/2022 Encounter Details Date Type Department Care Team (Late st Contact Info) Description 04/26/2022 Telephone [facility] Specialty Services [address] [place] [address] Miscellaneous, Not In File Ready to scheduled [...] on file Legal Sex Female 8:22 AM REGISTRY RN Gender Identity Female 11/15/2021 2:30 AM CDT [...] COVID: Suspected 09/24/2024 09/24/2024 09/24/2024 3:13 PM REGISTRY RN documented as of this encounter Care Teams Chiropractic Physician Relationship Specialty Start Date End Date Maddy Romano MD [address] [place] [address] PCP - General 09/28/16 Astrid Haq NP [address] [place] [address] Nurse Practitioner Radiation Oncology 11/05/18 11/07/22 Manas Ibarra MD [address] [place] [address] Referring Physician Thoracic Surgery 11/05/18 Zion Barton MD [address] [place] [address] Radiation Oncologist Radiation Oncology 05/05/19 Molina Charles MD 1 [facility] [address] [place] [address] Referring Physician Transplant Hepatology 12/15/20 Inés Lemus, TYRA 4590 [facility] [address] [place] [address] Jewelry Enameler 10/31/21 5 Karuna Maria, OT Occupational Therapist Occupational Therapy 09/20/22 Renu Treviño NP [address] [facility] [address] [place] [address] Nurse Practitioner Radiation Oncology 11/08/22 Eladio Mcrae MD [address] [place] [address] Referring Physician Obstetrics and Gynecology 11/15/22 Marcy Schroeder RN [address] [place] [address] Jewelry Enameler 04/27/24 Briana Poe, TYRA [address] [address] SHOP Outpatient Integrated Circuit Fabricator 04/30/24 05/28/24 Marina Le RN [address] [place] [address] [place] [address] [facility] Outpatient Integrated Circuit Fabricator 10/05/24 10/26/24 Chelsea Barker, typing pool supervisorJewelry Enameler 11/13/24 documented as of this encounter
--- OUTSIDE RECORDS SUMMARY | 2025-03-05 11:30 | XMS_ITS | Encounter Summary ---
Author Organization [facility] Address [address] [place] [address] Phone Care Team Providers Care Public Relations Studies Director Name Role Phone Maddy Romano MD Primary Care Provider Astrid Haq NP Unavailable Manas Ibarra MD Unavailable Zion Barton MD Unavailable [phone] Molina Charles MD Unavailable [phone] Inés Lemus RN Unavailable [phone] Karuna Maria OT Unavailable Unavaila Renu Paul NP Unavailable Eladio Mcrae MD Unavailable [phone] Marcy Schroeder RN Unavailable [phone] Briana Poe RN Unavailable Marina Le RN Unavailable [phone] Chelsea Barker RN Unavailable Unavail able Encounter [...] on file Legal Sex Female 8:22 AM LIBRARY SUPERVISOR Gender Identity Female 11/15/2021 2:30 AM [...] COVID: Suspected 09/24/2024 09/24/2024 09/24/2024 3:13 PM LIBRARY SUPERVISOR documented as of this encounter Care Teams Public Relations Studies Director Relationship Specialty Start Date End Date Maddy Romano MD [address] [place] [address] PCP - General 09/28/16 Astrid Haq NP [address] [place], [place] [address] Nurse Practitioner Radiation Oncology 11/05/18 11/07/22 Manas Ibarra MD [address] [place], [place] [address] Referring Physician Thoracic Surgery 11/05/18 Zion Barton MD [address] [place], [place] [address] Radiation Oncologist Radiation Oncology 05/05/19 Molina Charles MD 1 [facility] [address] [place] [address] Referring Physician Transplant Hepatology 12/15/20 Inés Lemus, TYRA [address] [facility] [address] [place] [address] Practice Director 10/31/21 5 Karuna Maria OT Occupational Therapist Occupational Therapy 09/20/22 Renu Treviño NP 49[address] [facility] [address] [place] [address] Nurse Practitioner Radiation Oncology 11/08/22 Eladio Mcrae MD [address] [place] [address] Referring Physician Obstetrics and Gynecology 11/15/22 Marcy Schroeder, RN [address] [place] [address] Practice Director 04/27/24 Briana Poe TYRA 4590 [facility] [address] [place] [address] SHOP Outpatient Isotope Technologist 04/30/24 05/28/24 Marina Le RN 45[address] [facility] [address] [place] [address] [facility] Outpatient Isotope Technologist 10/05/24 10/26/24 Chelsea Barker, cook specialtyPractice Director 11/13/24 documented as of this encounter
--- OUTSIDE RECORDS SUMMARY | 2025-03-05 11:30 | XMS_ITS | Encounter Summary ---
Author Organization [facility] Address [address] [place] [address] Care Team Providers Care Cephalometric Technician Name Role Phone Maddy Romano MD Primary Care Provider Manas Ibarra MD Unavailable Zion Barton MD Unavailable Molina Charles MD Unavailable [phone] Karuna Maria OT Unavailable Unavaila Renu Paul NP Unavailable [phone] Eladio Mcrae MD Unavailable [phone] Marcy Schroeder RN Unavailable [phone] Chelsea Barker RN Unavailable Unavail able Encounter Details Date Type Department Care Team (Latest Contact Info) Description 02/11/2025 Results Follow-Up Research [facility] Transplant Liver 45[address] [facility] [address] [place] [address] Chelsea Barker, RN Protime-INR, Comprehensive metabolic panel, eGFR Social History Tobacco Use Types Packs/Day Years Used Date Smoking Tobacco: Former Cigarettes 0.5 51 1 - 2020 Smokeless Tobacco: Never [facility] Utilities Answer Date Recorded In the [...] often do you attend chur ch or yazidi services? Never 10/05/2024 Do you belong to any clubs o r organizations such as sikh groups, unions, fraternal or athletic groups, or [...] any time in the past 12 m [facility], were you homeless or living in a group home (including now)? No 10/05/2024 Personal Safety Answer Date Recorded Have you ever been in or are you currently in a harmful physical or emotional relationship or is someone making you feel afraid or unsafe? 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 Gender Identity Female 11/15/2021 2:30 AM CDT [...] on filedocumented in this encounter Care Teams Cephalometric Technician Relationship Specialty Start Date End Date Maddy Romano MD [address] [place] [address] PCP - General 09/28/16 Manas Ibarra MD [address] [place] [address] Referring Physician Thoracic Surgery 11/05/18 Zion Barton MD [address] [place], [place] [address] Radiation Oncologist Radiation Oncology 05/05/19 Molina Charles MD 1 [facility] [address] [place] [address] Referring Physician Transplant Hepatology 12/15/20 Karuna Maria, OT Occupational Therapist Occupational Therapy 09/20/22 Renu Treviño NP 4921 [facility] [address] [place] [address] Nurse Practitioner Radiation Oncology 11/08/22 Eladio Mcrae MD [address] [place] [address] Referring Physician Obstetrics and Gynecology 11/15/22 Marcy Schroeder, RN [address] [place] [address] Yarn Winder 04/27/24 Chelsea Barker, software trainerYarn Winder 11/13/24 documented as of this encounter
--- OUTSIDE RECORDS SUMMARY | 2025-03-05 11:30 | XMS_ITS | Encounter Summary ---
Author Organization [facility] Address [address] [place] [address] Care Team Providers Care Rod Buster Helper Name Role Phone Maddy Romano MD Primary Care Provider [phone] Manas Ibarra MD Unavailable Zion Barton MD Unavailable [phone] Molina Charles MD Unavailable [phone] Inés Lemus RN Unavailable [phone] Karuna Maria OT Unavailable Unavaila Renu Paul NP Unavailable [phone] Eladio Mcrae MD Unavailable [phone] Marcy Schroeder RN Unavailable [phone] Briana oPe RN Unavailable [phone] Marina Le RN Unavailable Chelsea Barker RN Unavailable Unavail able Encounter Details Date Type Department Care Team (Late st Contact Info) Description 05/11/2024 Telephone [facility] [address] [place] [address] Ragini Wheeler, RN Social History Tobacco Use Types Packs/Day Years Used Date Smoking Tobacco: Former Cigarettes 0.5 51 1 970 - 2020 Smokeless Tobacco: Never [facility] Utilities Answer Date Recorded In the [...] often do you attend chur ch or yarsani services? Never 04/30/2024 Do you belong to any clubs o r organizations such as christian groups, unions, fraternal or athletic groups, or [...] place to sleep or slept in a jail (including now)? No 12/31/2022 Housing Stability Vital [...] time in the past 12 m [facility], were you homeless or living in a jail (including now)? No 04/30/2024 Personal Safety Answer Date Recorded Have you ever been in or are you currently in a harmful physical or emotional relationship or is someone making you feel afraid or unsafe? Denies 04/21/2024 Comments No Sex and Gender Information Value Date Recorded Sex Assigned at Not on file Legal Sex Female 8:22 AM SPECIALTY MANUFACTURING SUPERVISOR Gender Identity Female 11/15/2021 2:30 AM [...] COVID: Suspected 09/24/2024 09/24/2024 09/24/2024 3:13 PM SPECIALTY MANUFACTURING SUPERVISOR documented as of this encounter Care Teams Rod Buster Helper Relationship Specialty Start Date End Date Maddy Romano MD [address] [place] [address] PCP - General 09/28/16 Manas Ibarra MD [address] [place] [address] Referring Physician Thoracic Surgery 11/05/18 Zion Barton MD [address] [place] [address] Radiation Oncologist Radiation Oncology 05/05/19 Molina Charles MD 1 [facility] [address] [place] [address] Referring Physician Transplant Hepatology 12/15/20 Inés Lemus RN [address] [facility] [address] [place] [address] Crime Victim Specialist 10/31/21 5 Karuna Maria, OT Occupational Therapist Occupational Therapy 09/20/22 Renu Treviño NP 4921 [facility] [address] [place] [address] Nurse Practitioner Radiation Oncology 11/08/22 Eladio Mcrae MD [address] [place] [address] Referring Physician Obstetrics and Gynecology 11/15/22 Marcy Schroeder RN [address] [place] [address] Crime Victim Specialist 04/27/24 Briana Poe RN [address] [facility] [address] [place] [address] SHOP Outpatient Liner Inserter 04/30/24 05/28/24 Marina Le, RN 4590 [facility] [address] [place] [address] SHOP Outpatient Liner Inserter 10/05/24 10/26/24 Chelsea Barker, thread tool grinder set up operatorCrime Victim Specialist 11/13/24 documented as of this encounter
--- OUTSIDE RECORDS SUMMARY | 2025-03-05 11:30 | XMS_ITS ---
Author Organization [facility] Address [address] [place] [address] Care Team Providers Care Computer Systems Architect Name Role Phone Maddy Romano MD Primary Care Provider [phone] Manas Ibarra MD Unavailable Zion Barton MD Unavailable Molina Charles MD Unavailable [phone] Karuna Maria OT Unavailable Unavaila Renu Paul NP Unavailable [phone] Eladio Mcrae MD Unavailable [phone] Marcy Schroeder RN Unavailable [phone] Chelsea Barker RN Unavailable Unavail able Transplant Episode Kidney Candidate [facility] ([place], [place]) [facility] Center waitlisted on 05/07/2024 Marked as Inactive on 05/26/2024 Reason: Candidate requires multi-organ [place] only, isolated offers not accepted Kidney CoordinatorMarcy Schroeder RN Email: N/A Scores Score Value Updated Exceptions/Reas ons CPRA Not available EPTS (Calc) 56 03/05/2025 [place] Organ Diagnosis Organ Primary Contributory Kidney Other, 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
--- OUTSIDE RECORDS SUMMARY | 2025-03-05 11:30 | XMS_ITS | Encounter Summary ---
Author Organization [facility] Address [address] [place] [address] Phone Care Team Providers Care Receptionist Scheduler Name Role Phone Maddy Romano MD Primary Care Provider Astrid Haq NP Unavailable [phone] Manas Ibarra MD Unavailable Zion Barton MD Unavailable Molina Charles MD Unavailable [phone] Inés Lemus RN Unavailable [phone] Karuna Maria OT Unavailable Unavaila Renu Paul NP Unavailable Eladio Mcrae MD Unavailable Marcy Schroeder RN Unavailable [phone] Briana Poe RN Unavailable [phone] Marina Le RN Unavailable Chelsea Barker RN [...] on file Legal Sex Female 8:22 AM REINSURANCE CLAIMS ANALYST Gender Identity Female 11/15/2021 2:30 AM [...] COVID: Suspected 09/24/2024 09/24/2024 09/24/2024 3:13 PM REINSURANCE CLAIMS ANALYST documented as of this encounter Care Teams Receptionist Scheduler Relationship Specialty Start Date End Date Maddy Romano MD [address] [place] [address] PCP - General 09/28/16 Astrid Haq NP [address] [place], [place] [id number] Nurse Practitioner Radiation Oncology 11/05/18 11/07/22 Manas Ibarra MD [address] [place], [place] [id number] Referring Physician Thoracic Surgery 11/05/18 Zion Barton MD [address] [place], [place] [id number] Radiation Oncologist Radiation Oncology 05/05/19 Molina hCarles MD [address] [facility] [address] [place] [address] Referring Physician Transplant Hepatology 12/15/20 Inés Lemus, TYRA [address] [facility] [address] [place] [address] Youth Liaison Officer 10/31/21 5 Karuna Maria OT Occupational Therapist Occupational Therapy 09/20/22 Renu Treviño NP [address] [facility] [address] [place] [address] Nurse Practitioner Radiation Oncology 11/08/22 Eladio Mcrae MD [address] [place] [address] Referring Physician Obstetrics and Gynecology 11/15/22 Marcy Schrodeer, RN [address] [place] [address] Youth Liaison Officer 04/27/24 Briana Poe TYRA [address] [facility] [address] [place] [address] SHOP Outpatient Acid Tender 04/30/24 05/28/24 Marina Le RN [address] [facility] [address] [place] [address] [facility] Outpatient Acid Tender 10/05/24 10/26/24 Chelsea Barker, commercial specialistYouth Liaison Officer 11/13/24 documented as of this encounter
--- OUTSIDE RECORDS SUMMARY | 2025-03-05 11:30 | XMS_ITS | Clinical Summary ---
Author Organization [facility] Address [address] [place] [address] Care Team Providers Care Pulp Maker Name Role Phone Unavailable Primary Care Provider Unavailabl e Source Comments [facility],non-owned Affiliates and Associated Physician Practices is amultiple site organization consisting of ambulatory clinics and hospital sitesin [place], [place], [place] and [place]. This disclosure is being madepursuant to the Care Everywhere program and may not contain all information available regarding this patient. Last updated 18.[facility] Active Problems Problem Noted Date Diagnosed Date Decompensated hepatic cirrhosis 09/24/2024 Hepatic encephalopathy 04/01/2024 Cerebellar infarct 04/01/2024 Social History Tobacco Use Types Packs/Day Years Used Date Smoking Tobacco: Never Assessed Comments Unknown Sex and Gender Information Value Date Recorded Sex Assigned at Not on file Legal Sex Female 8:40 AM PROFESSIONAL ATHLETES COACH Gender Identity Not on file Sexual Orientation [...] patient's age to complete this topic Insurance [facility]
--- OUTSIDE RECORDS SUMMARY | 2025-03-05 11:30 | XMS_ITS | Clinical Summary ---
Author Organization [facility] Address [address] [place] [address] Care Team Providers Care Carbonator Name Role Phone Maddy Romano MD Primary Care Provider [phone] Manas Ibarra MD Unavailable Zion Barton MD Unavailable Molina Charles MD Unavailable [phone] Karuna Maria OT Unavailable Unavaila Renu Paul NP Unavailable [phone] Eladio Mcrae MD Unavailable [phone] Marcy Schroeder RN Unavailable [phone] Chlesea Barker RN Unavailable Unavail able Allergies Active Allergy Reactions Criticality Noted Date Comments Moxifloxacin Itching Low 10/15/2019 Sulfa (Sulfonamide Antibiotics) Hives Medium Medications ondansetron (ZOFRAN) 4 mg tablet Take 1 [...] 30 tablet 11 024 2024 Active blood-glucose transmitter (Dexcom G6 Transmitter) deviceIndications :Type 2 diabetes mellitus without complication, unspecified whether meterman insulin use (HCC) Will use 1 transmitter every 90 days 1 each 1 Active pen needle, diabetic (BD Ultra-Fine Mini Pen Needle) 31 gauge x 3/16 needleIndications :Type 2 diabetes mellitus without complication, unspecified whether meterman insulin use (HCC) USE TO INJECT INSULIN SIX TIMES PER DAY 200 each 11 Active glucagon 1 mg kit Inject 1 mg into the muscle once as directed by provider for low blood sugar. 1 kit 025 Active bumetanide (BUMEX) 1 mg tabletIndications :Stage 3b chronic kidney disease (HCC) Take 2 tablets (2 mg total) by mouth daily 270 tablet Active lactulose solution 10 gram/15mLIndicati ons:Portosystemic encephalopathy (HCC) Take 30 mL (20 g total) by mouth 3 (three) times a day 3785 mL 3 025 2024 Active Xifaxan 550 mg tabletIndications :Hepatic encephalopathy (HCC),Cirrhosis of liver without ascites, unspecified hepatic cirrhosis type (HCC) TAKE 1 TABLET(550 MG) BY MOUTH TWICE DAILY 60 tablet Active ciclopirox (PENLAC) 8 % solution 1 Application 025 2024 Active insulin glargine (LANTUS) 100 unit/mL (3 mL) pen for injectionIndicati ons:Type 2 diabetes mellitus with stage 3a chronic kidney disease, unspecified whether jail insulin use (HCC) Inject 44 Units under the skin nightly 45 mL 3 Active insulin lispro (HumaLOG, ADMELOG) 100 unit/mL pen for injectionIndicati ons:Type 2 diabetes mellitus with stage 3a chronic kidney disease, unspecified whether meterman insulin use (HCC) Inject 8 units with meals tid, plus sliding scale up to 40u daily 15 mL 11 025 2025 Active blood-glucose sensor (Dexcom G6 Sensor) deviceIndications :Type 2 diabetes mellitus with stage 3a chronic kidney disease, unspecified whether meterman insulin use (HCC) Will use 1 sensor every 10 days. 1 box = 3 sensors. 3 each Active tirzepatide (Mounjaro) 5 mg/0.5 mL pen injector injectionIndicati ons:Type 2 diabetes mellitus with stage 3a chronic kidney disease, unspecified whether meterman insulin use (HCC) Inject 0.5 mL (5 mg total) under the skin once a week 2 mL 2025 Active spironolactone (ALDACTONE) 100 mg tablet Take 2 tablets (200 mg total) by mouth daily 2025 Active acetaminophen (TYLENOL) 325 mg tabletIndications :Pain Take 2 tablets (650 mg total) by mouth every 8 (eight) hours 023 2024 Discontinued blood-glucose sensor (Dexcom G6 Sensor) deviceIndications :Type 2 diabetes mellitus with stage 3a chronic kidney disease, unspecified whether meterman insulin use (HCC) Will use 1 sensor every 10 days. 1 box = 3 sensors. 3 each 5 2024 Discontinued pen needle, diabetic (Pen Needle) 32 gauge x 5/32 needle Use as directed once a day. 100 each 2024 Discontinued blood-glucose meter,continuous (Dexcom G7 Director Of Development) misc Use as directed. 1 each 2024 Discontinued spironolactone (ALDACTONE) 100 mg tablet Take 1 tablet (100 mg total) by mouth daily 30 tablet 2024 Discontinued atorvastatin (LIPITOR) 40 mg tablet Take 1 tablet (40 mg total) by mouth daily 30 tablet 2024 Discontinued tirzepatide (Mounjaro) 2.5 mg/0.5 mL pen injector injection Inject 0.5 mL (2.5 mg total) under the skin once a week 2 mL 2024 Discontinued blood-glucose sensor (Dexcom G7 Sensor) device Use as directed. Change sensor every 10 days. 3 each 11 025 2024 Discontinued fluconazole (DIFLUCAN) 100 mg tablet Take 1 tablet (100 mg total) by mouth daily 025 2024 Discontinued(T herapy completed) insulin glargine (LANTUS) 100 unit/mL (3 mL) pen for injection Inject 44 Units under the skin nightly 45 mL 3 025 2024 Discontinued(R eorder) insulin lispro (HumaLOG, ADMELOG) 100 unit/mL pen for injection Inject 8 units with meals tid, plus sliding scale up to 40u daily 15 mL 5 025 2024 Discontinued(R eorder) oxyCODONE (ROXICODONE) 5 mg immediate release tablet 025 2024 Discontinued Active Problems Problem Noted Date Diagnosed Date Esophageal varices without bleeding 12/01/2024 Class 3 severe obesity due t o excess calories with serious comorbidity and body mass index (BMI) of 40.0 to 44.9 in adult 05/29/2024 Assessment & Plan (02/23/2025 2:42 PM CDT): Estimated body mass index is 42.1 kg/m as calculated from the following: Height as of this encounter: 170.2 cm (5' 7). Weight as of this encounter: 121.9 kg (268 lb 12.8 oz). Continue to encourage healthy diet, exercise as above. Uptitration of Mounjaro as above. Stage 3 chronic kidney disease 03/06/2023 Assessment & Plan (02/23/2025 2:39 PM CDT): Baseline Cr 1.2-1.7. Likely 2/2 T2DM with contribution from prior HRS. - Continue follow-up with Nephrology - Continue spironolactone 100mg daily per Nephrology - Management of T2DM as elsewhere Assessment & Plan (03/06/2023 5:50 PM CDT): [...] 10/10/2022 Assessment & Plan (10/12/2022 12:20 PM COMPANY LABORER): Episode of atrial flutter overnight with RVR up to 140s. Patient asymptomatic, normotensive. IV metoprolol X2 given to achieve rate control. [id number] vasc score of 3. TTE from 09/03 without valvular abnormalities. No new episodes today. Lytes within normal limits. - Continue court monitor - Continue home dose of metoprolol 25mg BID - Given that patient might be listed for transplant, hepatology would prefer to avoid apixaban. Lovenox is not ideal given her platelet count less than 100. Her INR is too high to consider warfarin. Anemia 10/05/2022 Assessment & Plan (10/11/2022 12:28 PM COMPANY LABORER): - Hgb has down trended from 8 [...] between 7.5-8 Hypertension 10/05/2022 Assessment & Plan (02/23/2025 2:41 PM CDT): Suboptimal control complicated by history of decompensated cirrhosis. - Continue management per Nephrology: spironolactone 100mg daily Assessment & Plan (10/11/2022 12:45 PM COMPANY LABORER): -Continue home dose of metoprolol 25mg BID Hepatic encephalopathy 07/31/2022 Assessment & Plan (03/06/2023 5:49 PM CDT): Good control on current medical management. No changes indicated. Assessment & Plan (08/03/2022 1:05 PM COMPANY LABORER): Pt with hx of LYONS cirrhosis presenting with progressively worsening mental status over past several weeks. On initial examination patient was AAOx1, on subsequent exam she is now AAOx2 with appropriate responses. NH3 75. Unfortunately no safe area for bedside diagnostic paracentesis. Slurred speech and concerns for swallowing. HAND GLUER AND SLICER completed swallow study and normal. Head CT: No acute intracranial abnormality. -Awaiting Liver MRI -Increased Lactulose to 4x daily (only 1 stool on 08/02) - Rifaximin and Lactulose (goal 3-5 bowel movements) - Fall precautions. - PT/OT: Home with assistance. Assessment & Plan (08/02/2022 2:34 PM COMPANY LABORER): Pt with hx of LYONS cirrhosis presenting with progressively worsening mental status over past several weeks. On initial examination patient was AAOx1, on subsequent exam she is now AAOx2 with appropriate responses. NH3 75. Unfortunately no safe area for bedside diagnostic paracentesis. Slurred speech and concerns for swallowing. HAND GLUER AND SLICER completed swallow study and normal. Head CT: No acute intracranial abnormality. - Rifaximin and Lactulose (goal 3-5 bowel movements) - Fall precautions. - PT/OT: Home with assistance. - HAND GLUER AND SLICER completed bedside swallow and Normal Assessment & Plan (08/01/2022 3:28 PM COMPANY LABORER): Pt with hx of LYONS cirrhosis presenting [...] concerns for swallowing. - Fall precautions. - HAND GLUER AND SLICER/PT/OT Consults. Assessment & Plan (08/01/2022 4:16 AM COMPANY LABORER): Pt with hx of LYONS cirrhosis presenting [...] lung 01/31/2021 Arthritis of right knee 12/13/2020 Monoclonal gammopathy of unknown significance (M CAMILA) 07/26/2016 Lesion of lung 11/16/2015 Type 2 diabetes mellitus Assessment & Plan (02/23/2025 2:38 PM CDT): Patient with historically suboptimally controlled diabetes and somewhat unreliable HbA1c iso anemia. Last HbA1c 11/2024 5.5% though GMI on CGM 7.9% with postprandial hyperglycemia worsening throughout the day. Will uptitrate GLP1/GIP RA to improve control. - Increase Mounjaro to 5mg weekly; if well tolerated will plan to increase this dose after 4 weeks - Continue insulin: insulin glargine 44 units qhs, insulin lispro 8 units TIDAC - Avoid SGLT2i given history of requent hypokalemia with dehydration-induced hepatic encephalopathy - Hold atorvastatin, ACEi/ARB given cirrhosis with history of recurrent decompensation - Last HbA1c 5.5% 11/2024, recheck next appointment - Last UACR <20 02/2021, can consider recheck next appointment though patient has known CKD - Last lipid panel 04/2024, LDL 47; recheck annually - Diabetic foot exam completed this visit (02/2025); provided education about foot care. Repeat annually. Follows with podiatry. - Diabetic eye exam DUE, f/u next visit - Continue to encourage healthy eating and exercise - Plan for meeting with wardrobe consultant, dietitian next visit Assessment & Plan (10/12/2022 2:58 PM COMPANY LABORER): Previously on dose reduced insulin regimen at OSH 20u lantus, 7u tid lispro + ssi. - Her blood sugars were initially on the lower side (90-100) in setting of poor po intake and TR. Continue SSI only for now and will uptitrate as needed. - Continue Lantus 10u/daily + lispro 4TID Assessment & Plan (08/03/2022 1:09 PM COMPANY LABORER): Home regimen of toujeo 42 units + SSI. -Lantus, Lispro TID AC and SSI -No Juice Diet -Consistent Carb+ 2gm NA diet. -CTM BGL Assessment & Plan (08/02/2022 2:38 PM COMPANY LABORER): Home regimen of toujeo 42 units + SSI. -Lantus, Lispro TID AC and SSI -No Juice Diet -Consistent Carb+ 2gm NA diet. -CTM BGL Assessment & Plan (08/01/2022 3:26 PM COMPANY LABORER): Home regimen of toujeo 42 units + SSI. Given TR and decreased PO intake, insulin regimen reduced to Lantus 20units. - Continue on 2g Na + DM2 diet - CTM BGL Assessment & Plan (08/01/2022 4:17 AM COMPANY LABORER): Home regimen of toujeo 42 units + [...] 10/08/2024 Esophageal varices without bleeding 07/17/2024 11/25/2024 Lymphedema 01/16/2023 07/15/2024 Other ascites 10/22/2022 07/15/2024 Overview (10/22/2022): Added automatically from request for surgery [id number] Volume overload 10/06/2022 05/29/2024 Assessment & Plan (10/10/2022 1:09 PM COMPANY LABORER): In the setting of LYONS cirrhosis. Diuretics [...] (08/22/2022): Added automatically from request for surgery [id number] Portal vein thrombosis 08/01/202208/22 Assessment & Plan (08/03/2022 1:09 PM COMPANY LABORER): -Apixaban 2.5mg BID Assessment & Plan (08/02/2022 2:39 PM COMPANY LABORER): -Apixaban 2.5mg BID Assessment & Plan (08/01/2022 3:27 PM COMPANY LABORER): -Apixaban 2.5mg BID Assessment & Plan (08/01/2022 4:17 AM COMPANY LABORER): Continue home apixaban LYONS (nonalcoholic steatohepatitis) 11/02/2021 07/15/2024 Abnormal mammogram of right breast 11/02/2020 08/22/2022 Preop cardiovascular exam 09/23/2019 Overview (09/23/2019): Added automatically from request for surgery [id number] Colon cancer screening 04/21/201908/22 Overview (04/21/2019): Added automatically from request for surgery [id number] Esophageal varices without bleeding (CMS/HCC) 04/21/20 19 08/22/2022 Overview (04/21/2019): Added automatically from request for surgery [id number] Mass of lower lobe of right lung 03/14/2018 02/24/2025 Cancer Staging:Clinical:Stage Unknown(cT1a, cNX) - Unsigned Steatosis of liver 05/20/2017 meterman current use of ant icoagulant therapy 07/26/2016 08/22/2022 Neutropenia 07/14/2015 07/15/2024 Portal vein thrombosis 07/14/201508/22 BMI 45.0-49.9, adult 11/18/2014 1018/2 024 Abnormal magnetic resonance imaging study 05/20/2014 08/22/2022 Biliary colic 05/10/2014 08/22/2022 Lesion of liver 04/30/2014 08/22/2022 Decreased granulocyte count 01/14/2014 07/15/2024 Lymphopenia 03/17/2013 07/15/2024 Lichen planus 06/03/2012 02/24/2025 Rash 03/25/2012 08/22/2022 Encounters Date Type Department Care Team Description 03/03/20 25 Orders Only [facility] Nephrology [address] [facility] 5th [place] [address] [place] [address] Blas Fisher MD Stage 3b chronic kidney disease (HCC) (Primary Dx); Hypertension, unspecified type; Anemia in stage 3b chronic kidney disease (HCC); TR (acute kidney injury); Vitamin D deficiency 02/26/20 25 Documentation [facility] and [facility] Transplant Liver [address] Mailstop [phone] [place] [address] Celsa Vargas 02/26/20 Orders Only [facility] Transplant Liver [address] Mailstop 12-19-305 [place] [address] Sam Clesa 02/25/20 9:30 AM CDT Office Visit [facility] Gasteroenterology [address] [facility] 12th [place] [address] [place] [phone] Britany Toribio MD Metabolic dysfunction-associated steatohepatitis (MASH) (Primary Dx); Other pancytopenia (HCC); Type 2 diabetes mellitus with stage 4 chronic kidney disease, with long-term current use of insulin (HCC); Other cirrhosis of liver (HCC) 02/25/20 25 Telephone [facility] Transplant Liver [address] [facility] [phone] [place] [address] Chelsea Barker RN 02/20/20 3:00 PM CDT Office Visit [facility] Endocrinology Metabolism and Lipid [address] [facility] 13th [place] [address] [place] [address] Marina Kennedy MD PhD Type 2 diabetes mellitus with stage 3a chronic kidney disease, unspecified whether jail insulin use (HCC) (Primary Dx); Cirrhosis of liver without ascites, unspecified hepatic cirrhosis type (HCC); Class 3 severe obesity due to excess calories with serious comorbidity and body mass index (BMI) of 40.0 to 44.9 in adult; Primary hypertension; Stage 3b chronic kidney disease (HCC) 02/18/20 10:00 AM CDT - 02/18/20 11:59 PM CDT Hospital Encounter [address] [address] ESRD (end stage renal diseas e) (HCC) Discharge Disposition: Discharge to home or self care 02/12/20 Telephone [facility] Transplant Liver [address] [facility] [address] Mailstop [phone] [place] [address] Chelsea Barker, TYRA 02/12/20 Results Follow-Up [facility] Transplant Liver [address] Mailstop [phone] [place] [address] Chelsea Barker, RN Protime-INR, Comprehensive metabolic panel, eGFR 02/11/20 4:30 PM CDT Lab [facility] [address] [place] [phone] 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 02/11/20 Telephone [facility] Transplant Liver [address] [facility] [address] Mailstop -17-[address] [place] [address] Chelsea Barker, TYRA 02/08/20 Telephone [facility] Transplant Liver [address] [place], [place] [address]op 47-13-[address] [place] [address] Chelsea Barker, TYRA 02/06/20 Telephone [facility] Transplant Liver [address] [place] [address]-79-[address] [place] [address] Chelsea Barker, TYRA 01/21/20 10:00 AM CDT - 01/21/20 11:59 PM CDT Hospital [address] [address] ESRD (end stage renal diseas e) (HCC) Discharge Disposition: Discharge to home or self care 01/12/20 3:25 PM CDT Lab [facility] [address] [place] [phone] Cirrhosis of liver without ascites, unspecified hepatic cirrhosis type (HCC) 01/12/20 Telephone [facility] Transplant Liver [address] [facility] [address] Mailstop [phone] [place] [address] Chelsea Barker, TYRA 01/09/20 Telephone [facility] Transplant Liver [address] [facility] [address] Mailstop 30-37-475 [place] [address] Chelsea Barker, TYRA 12/19/19 Telephone [facility] Endocrinology Metabolism and Lipid [address] [facility] 13th [place] [address] [place] [address] Katie Yates RN 12/18/19 Telephone [facility] Transplant Liver [address] Mailstop 43-26-643 [place] [address] Chelsea Barker RN 12/17/19 Results Follow-Up [facility] Transplant Liver [address] Mailstop [phone] [place] [address] Chelsea Barker, TYRA Comprehensive metabolic panel 12/16/19 10:00 AM CDT - 12/16/19 11:59 PM CDT Hospital [address] [address] ESRD (end stage renal diseas e) (HCC) Discharge Disposition: Discharge to home or self care 12/16/19 Telephone [facility] Transplant Liver [address] Mailstop [phone] [place] [address] Chelsea Barker RN 12/15/19 9:15 AM CDT - 12/15/19 9:45 AM CDT Surgery [facility] Endoscopy [address] [place] [address] Mercy Adler MD PhD ESOPHAGOGASTRODUODENOSCOPY 12/15/19 9:11 AM CDT Anesthesia Event [facility] Endoscopy [address] [place] [address] Ezequiel Waldron MD 12/15/19 8:08 AM CDT - 12/15/19 10:14 AM CDT Hospital Encounter [facility] Endoscopy [address] [place] [address] Mercy Adler MD PhD Discharge Disposition: Discharge to home or self care 12/15/19 Telephone [facility] Transplant Liver [address] Mailstop 01-51-040 [place] [address] Chelsea Barker, RN 12/15/19 Results Follow-Up [facility] Transplant Liver [address] Mailstop 01-37-735 [place] [address] Chelsea Barker, RN EGD 12/15/19 Telephone [facility] Transplant Liver [address] Mailstop 02-64-623 [place] [address] Chelsea Barker, RN 12/09/19 Telephone [facility] Transplant Liver [address] Mailstop 11-33-229 [place] [address] Chelsea Barker, RN 12/05/19 3:20 PM CDT Lab [facility] [address] [place] [phone] 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 12/05/19 Results Follow-Up [facility] Gastroenterology [address] [facility] 12th [place] [address] [place] [phone] Molina Charles MD Protime-INR, Comprehensive metabolic panel, eGFR, Additional followed-up results: 3 from Last 3 Months Immunizations Immunization Administration Dates Next Due Hep B Vaccine 01/22/2024,12/18/2023 Influenza, Quadrivalent, Spl it, Intramuscular 05/01/2019,05/26/2015 Influenza, Quadrivalent, Spl it, Preservative Free, Intramuscular 07/02/2023,04/29/2020,05/01/2019,05/09,05/08/2018,05/23/2017,05/17/2016 Influenza, Trivalent, IM (MDV) 04/28/2021,2013 Influenza, Trivalent, Preser vative Free, Intramuscular 05/29/2013 [employer] SARS-CoV-2 Vaccination 10/17/2020 Pneumococcal Conjugate PCV [...] by TW Conv) Cancer Maternal Grandmother Ame Garciaefrain Stephenson ly history of malignant neoplasm - [...] Cessation:Counseling Given: Not Answered [facility] Utilities Answer Date Recorded In the past 12 months has th e [employer], gas, oil, or water [employer] threatened to shut off services in your [...] week 10/05/2024 How often do you attend [facility] or buddhism services? Never 10/05/2024 Do you belong to any clubs o r organizations such as faith groups, unions, fraternal or athletic groups, or [...] any time in the past 12 [facility], were you homeless or living in a prison (including now)? No 10/05/2024 Personal Safety Answer Date Recorded Have you ever been in or are you currently in a harmful physical or emotional relationship or is someone making you feel afraid or unsafe? 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 file Obstetrics History Last Filed Vital Signs Vital Sign Reading Time Taken Comments Blood Pressure 143/59 02/24/2025 8:45 AM CDT Pulse 59 02/24/2025 8:45 AM CDT Temperature 36.6 C (97.9 F) 02/24/2025 8:45 AM CDT Respiratory Rate 19 12/14/2024 9:43 AM CDT Oxygen Saturation 97% 02/24/2025 8:45 AM CDT Inhaled Oxygen Concentration - - Weight 125.2 kg (276 lb) 02/24/2025 8:45 AM CDT Height 170.2 cm (5' 7) 02/24/2025 8:45 AM CDT Body Mass Index 43.23 02/24/2025 8:45 AM CDT Plan of Treatment Scheduled Procedures [...] Screening 04/28/2025 04/28/2024, Hemoglobin A1C 05/27/2025 11/25/2024, 02/1 03/2025, 09/28/2024, Additional history exists eGFR 02/10/2026 02/10/2025, 09/2024, 12/04/2024, Additional history exists Colon Cancer Screening-Colonoscopy 05/30/2032 05/30/2022, 10/26/2019 Zoster Vaccine Completed 02/17/2020, 05/29/2019 Colon Cancer Screening-CT Colonography Discontinued 05/30/2022, 10/26/2019 Colon Cancer Screening-DNA Stool Discontinued 05/30/20, 10/26/2019 Colon Cancer Screening-FIT Discontinued 05/30/2022, Colon Cancer Screening-Sigmoidoscopy Discontinued 05/30/2022, 10/26/2019 Hepatitis C Screening Completed 06/16/2023 , 06/16/2023, 01/05/2023, Additional history exists Procedures Procedure Name Priority Date/Time Associated Diagnosis Comments POCT GLUCOSE Routine 02/19/2025 2:38 PM CDT Type 2 diabetes mellitus with stage 3a chronic kidney disease, unspecified whether meterman insulin use (HCC) HLA ANTIBODY SCREEN BY PRA O R SAB PER SCHEDULE (CLASS I AND CLASS II) Routine 02/17/2025 10:00 AM CDT ESRD (end stage renal disease) (HCC) EGFR Routine 02/10/2025 2:13 PM CDT Liver [...] with long-term current use of insulin (HCC) PAP AND HIGH RISK HPV, REFLE X TO GENOTYPING Routine 04/28/2024 10:41 AM CDT SCREENING MAMMOGRAM BILATERA L W PAL IP Routine 04/27/2024 1:55 PM CDT LIPID PANEL Routine 04/22/2024 12:58 AM CDT HEPATITIS C ANTIBODY Routine 06/16/2023 6:09 AM COMPANY LABORER COLONOSCOPY 05/30/2022 9:28 AM CDT ALBUMIN CREATININE RATIO, URINE Routine 03/01/2021 2:45 PM CDT Type 2 diabetes mellitus without complication, unspecified whether meterman insulin use (HCC) from Last 3 Months or Most Recently Relevant to Health Maintenance Results * POCT glucose (02/19/2025 2:38 PM CDT) Pathologist [facility] Glucose Blood, POC 153 Normal Fasting 70 - 100, Random <200 mg/dL Blood 02/19/2025 2:38 PM CDT us Marina Kennedy MD PhD POINT OF CARE TEST ORDERA BLES Final Result * HLA Antibody Screen by PRA or SAB per Schedule (Class I and Class II) (02/17/2025 10:00 AM CDT) Blood 02/17/2025 10:0 0 AM CDT Narrative [employer] - COMPANY LABORER Sample received in lab and stored. No testing performed at this time. us Timothy Pardo MD LAB BLOOD ORDERABL ES Final Result [facility]IST[facility] * (ABNORMAL) eGFR (02/10/2025 2:13 PM CDT) [...] ORDERABLES Fin al Result Performing Organization Address City/State/[facility] Co de Phone Number [facility] Department [place] [address] * (ABNORMAL) Protime-INR (02/10/2025 2:13 PM CDT) PT 14.8(H) 9.7 - 13.0 sec INR 1.36(H) 0.90 - 1.20 [facility] Comment: Interpretive data Oral anticoagulant therapeutic ranges: Venous thromboembolism prophylaxis or treatment: 2.0-3.0 CARDIOLOGY Standard range: 2.0-3.0 High-intensity range: 2.5-3.5 Refer to indication-specific guidelines for appropriate target ranges for prosthetic heart valve replacement. Current interpretive data was last revised on 2019. Blood 02/10/2025 2:13 PM CDT 02/10/2025 2:55 PM CDT us Taiwo Vázquez MD LAB BLOOD ORDERABLES Fin al Result [facility] Department [place] [address] * (ABNORMAL) Comprehensive metabolic panel (02/10/2025 2:13 PM CDT) Sodium 142 135 - 145 mmol/L Potassium, pl 3.9 3.3 - 4.9 mmol/L [facility] Chloride 105 97 - 110 mmol/L [facility] CO2 31 22 - 32 mmol/L [facility] Anion gap 6 2 - 15 mmol/L [facility] BUN 16 6 - 25 mg/dL [facility] Creatinine 1.68(H) 0.60 - 1.10 mg/dL [facility] Glucose 119 70 - 199 mg/dL [facility] Comment: Interpretive Data Fasting glucose >/= [...] 2022. Calcium 8.8 8.5 - 10.3 mg/dL [facility] Bilirubin, total 1.6(H) 0.1 - 1.2 mg/dL [facility] Protein, pl 5.9(L) 6.5 - 8.5 g/dL [facility] Albumin 3.2(L) 3.5 - 5.0 g/dL [facility] Alk phos 99 40 - 130 Units/L [facility] ALT 20 7 - 45 Units/L [facility] AST 38 10 - 45 Units/L [facility] Blood 02/10/2025 2:13 PM CDT 02/10/2025 3:03 PM CDT us Taiwo Vázquez MD LAB BLOOD ORDERABLES Fin al Result [facility] Department [place] [address] * HLA Antibody Screen by PRA or SAB per Schedule (Class I and Class II) (01/20/2025 10:00 AM CDT) Blood 01/20/2025 10:0 0 AM CDT Narrative [facility] - COMPANY LABORER Sample received in lab. Single Antigen Antibody [...] an FDA-approved IVD kit (LABScreen Single-Antigen, [employer], [place], [place]). All patient serum samples are pretreated with EDTA before the screen to prevent complement interference. Additional serum treatments, such as adsorption and DTT treatment, may be performed as indicated. Interpretive comments: Low risk: MFI [id number]. Moderate risk: MFI [id number]. Increased risk: MFI >/= 5000. The presence [...] antigens to avoid. Testing performed at the [facility], [address] [place] [address], 5th floor, [place], [address]. CLIA # [id number]. Rani Smith, Ph.D., Liquor Maker, HLA Laboratory Aurelio Palafox M.D., Ph.D., Diffusion Operator, HLA Laboratory Norma Talamantes, Ph.D., CLIA Diffusion Operator, [facility] Clinical Laboratories Current methodology and [...] BLOOD ORDERABLES Final Result Performing Organization Address City/[facility] Co de Phone Number [facility]ISSA [facility] Department [place] [address] * (ABNORMAL) Protime-INR (01/11/2025 1:08 PM CDT) PT 15.8(H) 9.7 - 13.0 sec INR 1.45(H) 0.90 - 1.20 [facility] Comment: Interpretive data Oral anticoagulant therapeutic ranges: Venous thromboembolism prophylaxis or treatment: 2.0-3.0 CARDIOLOGY Standard range: 2.0-3.0 High-intensity range: 2.5-3.5 Refer to indication-specific guidelines for appropriate target ranges for prosthetic heart valve replacement. Current interpretive data was last revised on 2019. Blood 01/11/2025 1:08 PM CDT 01/11/2025 1:45 PM CDT us Molina Charles MD LAB BLOOD ORDERABLES Final Result [facility] Department [place] [address] * (ABNORMAL) Comprehensive metabolic panel (01/11/2025 1:08 PM CDT) Sodium 141 135 - 145 mmol/L Potassium, pl 3.6 3.3 - 4.9 mmol/L [facility] Chloride 105 97 - 110 mmol/L [facility] CO2 29 22 - 32 mmol/L [facility] Anion gap 7 2 - 15 mmol/L [facility] BUN 17 6 - 25 mg/dL [facility] Creatinine 1.56(H) 0.60 - 1.10 mg/dL [facility] Glucose 150 70 - 199 mg/dL [facility] Comment: Interpretive Data Fasting glucose >/= [...] Calcium 8.7 8.5 - 10.3 mg/dL [facility] Bilirubin, total 1.9(H) 0.1 - 1.2 mg/dL [facility] Protein, pl 6.4(L) 6.5 - 8.5 g/dL [facility] Albumin 3.2(L) 3.5 - 5.0 g/dL [facility] Alk phos 97 40 - 130 Units/L [facility] ALT 17 7 - 45 Units/L [facility] AST 32 10 - 45 Units/L [facility] Blood 01/11/2025 1:08 PM CDT 01/11/2025 1:45 PM CDT Molina Charles MD LAB BLOOD ORDERABLES Final Result [facility] [place] [address] * HLA Antibody Screen by PRA or SAB per Schedule (Class I and Class II) (12/15/2024 10:00 AM CDT) Blood 12/15/2024 10:0 0 AM CDT Narrative [facility] - COMPANY LABORER Sample received in lab and stored. No [...] Female Attending MD: Mercy Adler M.D. Room: [facility] ENDOSCOPY ROOM 03 Note Status: Finalized [...] and oxygen saturations were monitored continuously. The [id number] was introduced through the mouth, and advanced [...] - [facility] - [facility] to [facility] [...] was last revised on 2014. POC Performer [id number] [facility] POC Device Number [id number] [facility] Blood 12/14/2024 8:56 AM CDT 12/14/2024 8:56 AM CDT us Mercy Adler MD PhD LAB POCT ORDER RAVEN - DEVICE Final Result Performing Organization Address [facility]/ZIP Co de Phone Number CHARISSA [facility] [address] [facility] [place] [address] * (ABNORMAL) eGFR (12/04/2024 1:50 PM CDT) [...] ORDERABLES Fin al Result CHARISSA [facility] [place] [address] * (ABNORMAL) Differential, auto (12/04/2024 1:50 PM CDT) Neutrophil abs 2.07 1.50 - 6.50 K/cumm Imm gran abs 0.01 0.00 - 0.10 K/cumm [facility] Lymphocyte abs 0.76(L) 0.80 - 3.30 K/cumm [facility] Monocyte abs 0.28 0.20 - 0.80 K/cumm [facility] Eosinophil abs 0.53(H) 0.00 - 0.50 K/cumm [facility] Basophil abs 0.02 0.00 - 0.10 K/cumm [facility] Neutrophil pct 56.5 % [facility] Comment: Interpretive Data Percent cell count reference ranges are not reported, since discordance with absolute values may lead to misinterpretation of CBC data. Current Interpretive Data was last revised on 2017. Imm gran pct 0.3 % [facility] Comment: Interpretive Data Percent cell count reference ranges are not reported, since discordance with absolute values may lead to misinterpretation of CBC data. Current Interpretive Data was last revised on 2017. Lymphocyte pct 20.7 % [facility] Comment: Interpretive Data Percent cell count reference ranges are not reported, since discordance with absolute values may lead to misinterpretation of CBC data. Current Interpretive Data was last revised on 2017. Monocyte pct 7.6 % [facility] Comment: Interpretive Data Percent cell count reference ranges are not reported, since discordance with absolute values may lead to misinterpretation of CBC data. Current Interpretive Data was last revised on 2017. Eosinophil pct 14.4 % [facility] Comment: Interpretive Data Percent cell count reference ranges are not reported, since discordance with absolute values may lead to misinterpretation of CBC data. Current Interpretive Data was last revised on 2017. Basophil pct 0.5 % [facility] Comment: Interpretive Data Percent cell count reference ranges are not reported, since discordance with absolute values may lead to misinterpretation of CBC data. Current Interpretive Data was last revised on 2017. Blood 12/04/2024 1:50 PM CDT 12/04/2024 3:08 PM CDT Taiwo Vázquez MD LAB BLOOD ORDERABLES Fin al Result Performing Organization Address [facility] Co de Phone Number [facility] [place] [address] * (ABNORMAL) CBC with auto differential (12/04/2024 1:50 PM CDT) WBC 3.67(L) 3.80 - 9.90 K/cumm Hgb 10.4(L) 11.9 - 15.5 g/dL [facility] Hct 30.5(L) 35.6 - 45.5 % [facility] Plt 53(L) 150 - 400 K/cumm [facility] MPV 11.9 9.1 - 12.3 fL [facility] RBC 3.29(L) 3.90 - 5.20 M/cumm [facility] MCV 92.7 81.3 - 96.4 fL [facility] MCH 31.6 27.1 - 33.3 pg [facility] MCHC 34.1 32.3 - 35.7 g/dL [facility] RDW CV 14.6 11.1 - 14.9 % [facility] RDW SD 49.7(H) 35.7 - 48.1 fL [facility] NRBC abs 0.00 0.00 - 0.01 K/cumm [facility] Blood 12/04/2024 1:50 PM CDT 12/04/2024 3:08 PM CDT Taiwo Vázquez MD LAB BLOOD ORDERABLES Fin al Result Performing Organization Address [facility] Co de Phone Number [facility] [place] [address] * (ABNORMAL) Protime-INR (12/04/2024 1:50 PM CDT) Pathologist [facility] PT 15.6(H) 9.7 - 13.0 sec INR 1.43(H) 0.90 - 1.20 [facility] Comment: Interpretive data Oral anticoagulant therapeutic ranges: Venous thromboembolism prophylaxis or treatment: 2.0-3.0 CARDIOLOGY Standard range: 2.0-3.0 High-intensity range: 2.5-3.5 Refer to indication-specific guidelines for appropriate target ranges for prosthetic heart valve replacement. Current interpretive data was last revised on 2019. Blood 12/04/2024 1:50 PM CDT 12/04/2024 3:08 PM CDT Taiwo Vázquez MD LAB BLOOD ORDERABLES Fin al Result Performing Organization Address [facility] Co de Phone Number [facility] [place] [address] * (ABNORMAL) Bilirubin, direct (12/04/2024 1:50 PM CDT) [facility] Bilirubin, direct 0.8(H) 0.1 - 0.3 mg/dL Blood 12/04/2024 1:50 PM CDT 12/04/2024 3:08 PM CDT Taiwo Vázquez MD LAB BLOOD ORDERABLES Fin al Result Performing Organization Address City/[facility]/ZIP Co de Phone Number [facility] [place] [address] * (ABNORMAL) Comprehensive metabolic panel (12/04/2024 1:50 PM CDT) [facility] Sodium 145 135 - 145 mmol/L Potassium, pl 3.5 3.3 - 4.9 mmol/L [facility] Chloride 108 97 - 110 mmol/L [facility] CO2 33(H) 22 - 32 mmol/L [facility] Anion gap 4 2 - 15 mmol/L [facility] BUN 16 6 - 25 mg/dL [facility] Creatinine 1.49(H) 0.60 - 1.10 mg/dL [facility] Glucose 139 70 - 199 mg/dL [facility] Comment: Interpretive Data Fasting glucose >/= [...] 2022. Calcium 8.9 8.5 - 10.3 mg/dL [facility] Bilirubin, total 1.8(H) 0.1 - 1.2 mg/dL [facility] Protein, pl 6.0(L) 6.5 - 8.5 g/dL [facility] Albumin 3.2(L) 3.5 - 5.0 g/dL [facility] Alk phos 98 40 - 130 Units/L [facility] ALT 17 7 - 45 Units/L [facility] AST 34 10 - 45 Units/L [facility] Blood 12/04/2024 1:50 PM CDT 12/04/2024 3:08 PM CDT Taiwo Vázquez MD LAB BLOOD ORDERABLES Fin al Result [facility] [place] [address] * Hemoglobin A1c (11/25/2024 9:40 AM CDT) [facility] Hgb A1C 5.5 4.0 - 5.6 % Estimated Average Glucose 111 mg/dL [facility] Comment: The ADA recommends reporting an [...] LAB BLOOD ORDERABLES Fin al Result CHARISSA [facility] [place] [address] * Pap and High Risk HPV and Genotyping (Cytology Component) (04/28/2024 10:41 AM CDT) Thin prep (Pap test) 04/28/2024 10:41 AM CDT 04/28/2024 1:00 PM CDT Narrative PATHOLOGY [facility] - 05/04/2024 4:21 PM CDT EPIC results best viewed via link to PDF [facility] Chelsea Cronin [facility] [place] [address] Note to Patients: This report may contain [...] Gender: Michelle : 1960 (Age: 63) Address: [address] [place] [id number] Hospital #: [id number] Service: Medical Location: [place] [address] Patient Type: [facility] Inpatient Taken: [...] this test have been verified by the [facility] Molecular Infectious Disease laboratory. Correlate [...] histologic results be correlated for laboratory quality control inspector & improvement standards. FOR ALL HIGH-GRADE CASES [...] determined by the Surgical Pathology Department at [facility] as part of an ongoing dairy quality assurance officer program and in compliance with federally mandated [...] determined by the Surgical Pathology Department of [facility]. It has not been cleared or approved by the U. S. Food and Drug Administration. Eladio Carey MD LAB CYTOLOGY ORDERABLES Final Result Performing Organization Address City/State/[facility] Co de Phone Number PATHOLOGY [facility] 3rd Floor [place], [place] [phone] * Screening Mammogram Bilateral W Pal (04/27/2024 1:55 PM CDT) Anatomical Region Laterality Modality Breast Bilateral Mammography Narrative 04/27/2024 1:52 PM CDT Mammogram Technique: Bilateral Digital Breast Tomosynthesis, Bilateral C-view 2D Screening mammogram. Views obtained: bilateral craniocaudal and bilateral mediolateral oblique. Computer Aided Detection was performed. Mammogram Findings: The present examination has been compared to prior imaging studies performed at [facility] on 05/15/2021 and 12/06/2021. There [...] compared to prior imaging studies performed at [facility] on 05/15/2021 and 12/06/2021. There [...] revised on 2018. Triglycerides 43 <=149 mg/dL [facility] Comment: Interpretive Data Ages < [...] on 2018. HDL 64 >=40 mg/dL CHARISSA [facility] Comment: Interpretive Data Ages < [...] on 2018. LDL, calculated 47 <=129 mg/dL [facility] Comment: Interpretive Data Ages < [...] revised on 2024. Non-HDL Cholesterol 58 mg/dL [facility] Comment: Interpretive Data Ages < or [...] last revised on 2018. Chol/HDL ratio 2 [facility] Blood 04/22/2024 12:5 8 AM CDT 04/22/2024 3:00 AM CDT us John Paul Reddy MD LAB BLOOD ORDERABLES Final Resul t Performing Organization Address City/[facility]/ZIP Co de Phone Number [facility] [place] [address] * Hepatitis C antibody Blood (06/16/2023 6:09 AM COMPANY LABORER) Hep C Ab Nonreactive Nonreactive [facility] Comment:Antibodies to HCV no t detected. Does NOT exclude the possibility of recent exposure to HCV. Current interpretive data was last revised on 22 Blood 06/16/2023 6:09 AM COMPANY LABORER 06/16/2023 6:35 AM COMPANY LABORER us Alejandro Frazier MD LAB MICROBIOLOGY - GENERAL ORDERABLES Final Result Performing Organization Address [facility] Co de Phone Number [facility] [place] [address] * COLONOSCOPY (05/30/2022 9:28 AM CDT) Anatomical Region Laterality Modality Other Narrative Procedure Note Pat Robins MD - 05/30/2022 9:28 AM CDT [facility] ENDOSCOPY [facility] Patient Name: Aleah Levine Procedure Date: 05/30/2022 9:28 AM Date of : 1960 Admit Type: Outpatient Age: 61 Gender: Female Attending MD: Pat Robins M.D. Room: [facility] ENDOSCOPY ROOM 3 Note Status: Finalized Procedure: [...] The scope was passed under direct vision.The [facility] [id number] endoscope was introducedthrough the anus and [...] On: 05/30/2022 9:28 AM Recognized by the [employer] for promoting quality in endoscopy Pat Robins MD ENDOSCOPY PROCEDURES Ju l Result * Albumin Creatinine Ratio, Urine (03/01/2021 2:45 PM CDT) Albumin Ur <12.0 mg/L [facility] Comment: Interpretive Data No reference range established. Current interpretive data was last revised 2018. Creatinine Ur 59.5 mg/dL [facility] Comment: Interpretive Data No reference range established. Current interpretive data was last revised 2018. Albumin Creatinine Ratio, Ur <20 1 - 29 mg/g [facility] Urine 03/01/2021 2:45 PM CDT 03/01/2021 3:41 PM CDT Oly Baker MD LAB URINE ORDER RAVEN Final Result CHARISSA [facility] [place] [address] from Last 3 Months or Most Recently Relevant to Health Maintenance Insurance [facility] Member Subscriber Plan / Payer (Ef fective 2018-Present) Name:Aleah Levine Relation to Subscriber:Not on file Subscriber ID:Not on file Payer ID:[id number] (NAIC) Type:[employer] Address: [place] [id number] [address] [facility] [employer] BLUE ACCESS OOS Member Subscriber Plan / Payer (Ef fective 2021-Present) Name:Abner Aleah Amanda Relation to Subscriber:Self Name:lAeah Levine Payer ID:[id number] (NAIC) Type:[facility] Address: [address] [facility] [facility] TRANS[facility]ANT [facility] MEDICARE ADVANTAGE [facility] MEDICARE ADVANTAGE TRANSPLANT [employer] MED[employer] RISK TRANSPLANT [employer] RISK Advance Directives For more information, please contact: [phone] * Full Code (Latest Code Status on [...] 8:35 AM 02/05/2023 7:30 PM Care Teams Carbonator Relationship Specialty Start Date End Date Maddy Romano MD [address] [place] [address] PCP - General 09/28/16 Manas Ibarra MD [address] [place] [address] Referring Physician Thoracic Surgery 11/05/18 Zion Barton MD [address] [place] [address] Radiation Oncologist Radiation Oncology 05/05/19 Molina Charles MD [address] [facility] [address] [place] [address] Referring Physician Transplant Hepatology 12/15/20 Karuna Maria OT Occupational Therapist Occupational Therapy 09/20/22 Renu Treviño NP [address] [facility] [address] [place] [address] Nurse Practitioner Radiation Oncology 11/08/22 Eladio Mcrae MD [address] [place] [address] Referring Physician Obstetrics and Gynecology 11/15/22 Marcy Schroeder, RN [address] [place], [place] [id number] Ruling Machine Feeder 04/27/24 Chelsea Barker, train callerRuling Machine Feeder 11/13/24
--- OUTSIDE RECORDS SUMMARY | 2025-03-05 11:30 | XMS_ITS | Encounter Summary ---
Author Organization [facility] Address [address] [place] [address] Phone Care Team Providers Care Jacquard Loom Heddles Tier Name Role Phone Maddy Romano MD Primary Care Provider [phone] Astrid Haq NP Unavailable Manas Ibarra MD Unavailable Zion Barton MD Unavailable Molina Charles MD Unavailable [phone] Inés Lemus RN Unavailable [phone] Karuna Maria OT Unavailable Unavaila Renu Paul NP Unavailable Eladio Mcrae MD Unavailable Marcy Schroeder RN Unavailable [phone] Briana Poe RN Unavailable [phone] Marina Le RN Unavailable Chelsea Barker RN [...] on file Legal Sex Female 8:22 AM TIMING ADJUSTER Gender Identity Female 11/15/2021 2:30 AM CDT [...] COVID: Suspected 09/24/2024 09/24/2024 09/24/2024 3:13 PM TIMING ADJUSTER documented as of this encounter Care Teams Jacquard Loom Heddles Tier Relationship Specialty Start Date End Date Maddy Romano MD [address] [place] [address] PCP - General 09/28/16 Astrid Haq NP [address] [place] [address] Nurse Practitioner Radiation Oncology 11/05/18 11/07/22 Manas Ibarra MD [address] [place] [address] Referring Physician Thoracic Surgery 11/05/18 Zion Barton MD [address] [place] [address] Radiation Oncologist Radiation Oncology 05/05/19 Molina Charles MD [address] [place] [address] [address] [place] [address] Referring Physician Transplant Hepatology 12/15/20 Inés Lemus, TYRA [address] [facility] [address] [place] [address] Supervisor Shuttle Fitting 10/31/21 5 Karuna Maria, OT Occupational Therapist Occupational Therapy 09/20/22 Renu Treviño NP [address] [facility] [address] [place] [address] Nurse Practitioner Radiation Oncology 11/08/22 Eladio Mcrae MD [address] [facility] [address] [place] [address] Referring Physician Obstetrics and Gynecology 11/15/22 Marcy Schroeder RN [address] [place] [address] Supervisor Shuttle Fitting 04/27/24 Briana Poe, TYRA [address] [address] [facility] Outpatient Size Stamper 04/30/24 05/28/24 Marina Le RN [address] [address] [facility] Outpatient Size Stamper 10/05/24 10/26/24 Chelsea Barker, ham bonerSupervisor Shuttle Fitting 11/13/24 documented as of this encounter
--- OUTSIDE RECORDS SUMMARY | 2025-03-05 11:30 | XMS_ITS | Referral Summary ---
Author Organization [facility] Address [address] [place] [address] Care Team Providers Care Dandy Operator Name Role Phone Maddy Romano MD Primary Care Provider [phone] Manas Ibarra MD Unavailable Zion Barton MD Unavailable Molina Charles MD Unavailable [phone] Karuna Maria OT Unavailable Unavaila Renu Paul NP Unavailable [phone] Eladio Mcrae MD Unavailable [phone] Marcy Schroeder RN Unavailable [phone] Chelsea Barker RN Unavailable Unavail able Encounters Date Type Department Care Team Description 03/03/20 25 Orders Only [facility] Nephrology [address] [facility] 5th [place] [address] [place] [address] Blas Fisher MD Stage 3b chronic kidney disease (HCC) (Primary Dx); Hypertension, unspecified type; Anemia in stage 3b chronic kidney disease (HCC); TR (acute kidney injury); Vitamin D deficiency 02/26/20 25 Documentation [facility] Transplant Liver [address] [facility] [id number] [place] [address] KareledaCelsa 02/26/20 25 Orders Only [facility] Transplant Liver [address] [facility] [id number] [place] [address] KareledaCelsa 02/25/20 25 Telephone [facility] Transplant Liver [address] [facility] [id number] [place] [address] Chelsea Barker RN 02/25/20 9:30 AM CDT Office Visit [facility] Gasteroenterology [address] [facility] 12th [place] [address] [place] [address] Britany Toribio MD Metabolic dysfunction-associated steatohepatitis (MASH) (Primary Dx); Other pancytopenia (HCC); Type 2 diabetes mellitus with stage 4 chronic kidney disease, with long-term current use of insulin (HCC); Other cirrhosis of liver (HCC) 02/20/20 3:00 PM CDT Office Visit [facility] Endocrinology Metabolism and Lipid [address] [facility] 13th [place] [address] [place] [address] Marina Kennedy MD PhD Type 2 diabetes mellitus with stage 3a chronic kidney disease, unspecified whether penitentiary insulin use (HCC) (Primary Dx); Cirrhosis of liver without ascites, unspecified hepatic cirrhosis type (HCC); Class 3 severe obesity due to excess calories with serious comorbidity and body mass index (BMI) of 40.0 to 44.9 in adult; Primary hypertension; Stage 3b chronic kidney disease (HCC) 02/18/20 10:00 AM CDT - 02/18/20 11:59 PM CDT Hospital Encounter [address] [address] ESRD (end stage renal diseas e) (HCC) Discharge Disposition: Discharge to home or self care 02/12/20 Telephone [facility] Transplant Liver [address] [facility] [address] 90[address]09- [place] [address] Chelsea Barker, RN 02/12/20 Results Follow-Up [facility] Transplant Liver [address] [place] [address] [place] [address] Chelsea Barker, RN Protime-INR, Comprehensive metabolic panel, eGFR 02/11/[address] 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 Transplant Liver [address] [place], [place] [id number] [place] [address] Chelsea Barker, TYRA 02/06/[address] [facility] Transplant Liver [address] [place], [place] [id number] [place] [address] Chelsea Barker, TYRA 01/21/20 10:00 AM CDT - 01/21/20 11:59 PM CDT Hospital [address] [address] ESRD (end stage renal diseas e) (HCC) Discharge Disposition: Discharge to home or self care 01/12/[address] [facility] Transplant Liver [address] [place], [place] [id number] [place] [address] Chelsea Barker, RN 01/12/20 25 3:25 PM CDT Lab [facility] [address] [place] [phone] Cirrhosis of liver without ascites, unspecified hepatic cirrhosis type (HCC) 01/09/20 Telephone [facility] Transplant Liver [address] [facility] [address] [phone] [place] [address] Chelsea Barker, TYRA 12/19/19 Telephone [facility] Endocrinology Metabolism and Lipid [address] [facility] 13th [place] [address] [place] [phone] Katie Yates RN 12/18/19 Telephone [facility] Transplant Liver [address] [facility] [address] [place], [place] [address]op [phone] [place] [address] Chelsea Barker RN 12/17/19 Results Follow-Up [facility] Transplant Liver [address] [facility] [address] [place] [phone] [place] [address] Chelsea Barker RN Comprehensive metabolic panel 12/16/19 10:00 AM CDT - 12/16/19 11:59 PM CDT Hospital [address] [address] ESRD (end stage renal diseas e) (HCC) Discharge Disposition: Discharge to home or self care 12/16/[address] [facility] Transplant Liver [address] [facility] [address] [phone] [place] [address] Chelsea Barker RN 12/15/19 Telephone [facility] Transplant Liver [address] [facility] [address] [phone] [place] [address] Chelsea Barker RN 12/15/19 Results Follow-Up [facility] Transplant Liver [address] [facility] [address] [phone] [place] [address] Chelsea Barker RN EGD 12/15/19 Telephone [facility] Transplant Liver [address] [facility] [address] [id number] [place] [address] Chelsea Barker RN 12/15/19 9:15 AM CDT - 12/15/19 9:45 AM CDT Surgery [facility] Endoscopy [address] [place] [address] Mercy Adler MD PhD ESOPHAGOGASTRODUODENOSCOPY 12/15/19 9:11 AM CDT Anesthesia Event [facility]oscopy [address] [place] [address] Ezequiel Waldron MD 12/15/19 8:08 AM CDT - 12/15/19 10:14 AM CDT Hospital Encounter [facility]oscopy [address] [place], [place] [address] Mercy Adler MD PhD Discharge Disposition: Discharge to home or self care 12/09/19 Telephone [facility] Transplant Liver [address] [facility] [address] [phone] [place] [address] Chelsea Barker RN 12/05/19 Results Follow-Up [facility] Gastroenterology [address] [facility] 12th [place] [address] [place] [address] Molina Charles MD Protime-INR, Comprehensive metabolic panel, eGFR, Additional followed-up results: 3 12/05/19 3:20 PM CDT Lab [facility] ([facility]) [address] [place] [address] 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 1 kit 025 Active bumetanide (BUMEX) 1 mg tabletIndications :Stage 3b chronic kidney disease (HCC) Take 2 tablets (2 mg total) by mouth daily 270 tablet 025 Active lactulose solution 10 gram/15mLIndicati ons:Portosystemic encephalopathy (HCC) Take 30 mL (20 g total) by mouth 3 (three) times a day 3785 mL 3 025 2024 Active Xifaxan 550 mg tabletIndications :Hepatic encephalopathy (HCC),Cirrhosis of liver without ascites, unspecified hepatic cirrhosis type (HCC) TAKE 1 TABLET(550 MG) BY MOUTH TWICE DAILY 60 tablet 11 025 Active ciclopirox (PENLAC) 8 % solution 1 Application 025 2024 Active insulin glargine (LANTUS) 100 unit/mL (3 mL) pen for injectionIndicati ons:Type 2 diabetes mellitus with stage 3a chronic kidney disease, unspecified whether longwall foreman insulin use (HCC) Inject 44 Units under the skin nightly 45 mL 3 025 Active insulin lispro (HumaLOG, ADMELOG) 100 unit/mL pen for injectionIndicati ons:Type 2 diabetes mellitus with stage 3a chronic kidney disease, unspecified whether penitentiary insulin use (HCC) Inject 8 units with meals tid, plus sliding scale up to 40u daily 15 mL 025 2025 Active blood-glucose sensor (Dexcom G6 Sensor) deviceIndications :Type 2 diabetes mellitus with stage 3a chronic kidney disease, unspecified whether penitentiary insulin use (HCC) Will use 1 sensor every 10 days. 1 box = 3 sensors. 3 each Active tirzepatide (Mounjaro) 5 mg/0.5 mL pen injector injectionIndicati ons:Type 2 diabetes mellitus with stage 3a chronic kidney disease, unspecified whether longwall foreman insulin use (HCC) Inject 0.5 mL (5 mg total) under the skin once a week 2 mL 2025 Active spironolactone (ALDACTONE) 100 mg tablet Take 2 tablets (200 mg total) by mouth daily 025 2025 Active acetaminophen (TYLENOL) 325 mg tabletIndications :Pain Take 2 tablets (650 mg total) by mouth every 8 (eight) hours 023 2024 Discontinued blood-glucose sensor (Dexcom G6 Sensor) deviceIndications :Type 2 diabetes mellitus with stage 3a chronic kidney disease, unspecified whether longwall foreman insulin use (HCC) Will use 1 sensor every 10 days. 1 box = 3 sensors. 3 each 025 2024 Discontinued pen needle, diabetic (Pen Needle) 32 gauge x 5/32 needle Use as directed once a day. 100 each 025 2024 Discontinued blood-glucose meter,continuous (Dexcom G7 Grating Machine Operator) misc Use as directed. 1 each 2024 Discontinued spironolactone (ALDACTONE) 100 mg tablet Take 1 tablet (100 mg total) by mouth daily 30 tablet 11 025 2024 Discontinued atorvastatin (LIPITOR) 40 mg tablet Take 1 tablet (40 mg total) by mouth daily 30 tablet 025 2024 Discontinued tirzepatide (Mounjaro) 2.5 mg/0.5 mL pen injector injection Inject 0.5 mL (2.5 mg total) under the skin once a week 2 mL 025 2024 Discontinued blood-glucose sensor (IMR[employer] MEDICAL SYSTEMScom G7 Sensor) device Use as directed. Change sensor every 10 days. 3 each 025 2024 Discontinued fluconazole (DIFLUCAN) 100 mg [...] oxyCODONE (ROXICODONE) 5 mg immediate release tablet 2024 Discontinued Active Problems Problem Noted Date [...] 10/10/2022 Assessment & Plan (10/12/2022 12:20 PM PUBLIC SERVICES ASSISTANT): Episode of atrial flutter overnight with RVR up to 140s. Patient asymptomatic, normotensive. IV metoprolol X2 given to achieve rate control. [id number] vasc score of 3. TTE from 09/03 without valvular abnormalities. No new episodes today. Lytes within normal limits. - Continue surveillance monitor - Continue home dose of metoprolol 25mg BID - Given that patient might be listed for transplant, hepatology would prefer to avoid apixaban. Lovenox is not ideal given her platelet count less than 100. Her INR is too high to consider warfarin. Anemia 10/05/2022 Assessment & Plan (10/11/2022 12:28 PM PUBLIC SERVICES ASSISTANT): - Hgb has down trended from 8 [...] daily Assessment & Plan (10/11/2022 12:45 PM PUBLIC SERVICES ASSISTANT): -Continue home dose of metoprolol 25mg BID Hepatic encephalopathy 07/31/2022 Assessment & Plan (03/06/2023 5:49 PM CDT): Good control on current medical management. No changes indicated. Assessment & Plan (08/03/2022 1:05 PM PUBLIC SERVICES ASSISTANT): Pt with hx of LYONS cirrhosis presenting with progressively worsening mental status over past several weeks. On initial examination patient was AAOx1, on subsequent exam she is now AAOx2 with appropriate responses. NH3 75. Unfortunately no safe area for bedside diagnostic paracentesis. Slurred speech and concerns for swallowing. GAS METER REPAIRER completed swallow study and normal. Head CT: No acute intracranial abnormality. -Awaiting Liver MRI -Increased Lactulose to 4x daily (only 1 stool on 08/02) - Rifaximin and Lactulose (goal 3-5 bowel movements) - Fall precautions. - PT/OT: Home with assistance. Assessment & Plan (08/02/2022 2:34 PM PUBLIC SERVICES ASSISTANT): Pt with hx of LYONS cirrhosis presenting with progressively worsening mental status over past several weeks. On initial examination patient was AAOx1, on subsequent exam she is now AAOx2 with appropriate responses. NH3 75. Unfortunately no safe area for bedside diagnostic paracentesis. Slurred speech and concerns for swallowing. GAS METER REPAIRER completed swallow study and normal. Head CT: No acute intracranial abnormality. - Rifaximin and Lactulose (goal 3-5 bowel movements) - Fall precautions. - PT/OT: Home with assistance. - GAS METER REPAIRER completed bedside swallow and Normal Assessment & Plan (08/01/2022 3:28 PM PUBLIC SERVICES ASSISTANT): Pt with hx of LYONS cirrhosis presenting [...] concerns for swallowing. - Fall precautions. - GAS METER REPAIRER/PT/OT Consults. Assessment & Plan (08/01/2022 4:16 AM PUBLIC SERVICES ASSISTANT): Pt with hx of LYONS cirrhosis presenting [...] and exercise - Plan for meeting with risk engineer, dietitian next visit Assessment & Plan (10/12/2022 2:58 PM PUBLIC SERVICES ASSISTANT): Previously on dose reduced insulin regimen at [facility]SH 20u lantus, 7u tid lispro + ssi. - Her blood sugars were initially on the lower side (90-100) in setting of poor po intake and TR. Continue SSI only for now and will uptitrate as needed. - Continue Lantus 10u/daily + lispro 4TID Assessment & Plan (08/03/2022 1:09 PM PUBLIC SERVICES ASSISTANT): Home regimen of toujeo 42 units + SSI. -Lantus, Lispro TID AC and SSI -No Juice Diet -Consistent Carb+ 2gm NA diet. -CTM BGL Assessment & Plan (08/02/2022 2:38 PM PUBLIC SERVICES ASSISTANT): Home regimen of toujeo 42 units + SSI. -Lantus, Lispro TID AC and SSI -No Juice Diet -Consistent Carb+ 2gm NA diet. -CTM BGL Assessment & Plan (08/01/2022 3:26 PM PUBLIC SERVICES ASSISTANT): Home regimen of toujeo 42 units + SSI. Given TR and decreased PO intake, insulin regimen reduced to Lantus 20units. - Continue on 2g Na + DM2 diet - CTM BGL Assessment & Plan (08/01/2022 4:17 AM PUBLIC SERVICES ASSISTANT): Home regimen of toujeo 42 units + [...] (10/22/2022): Added automatically from request for surgery [id number] Volume overload 10/06/2022 05/29/2024 Assessment & Plan (10/10/2022 1:09 PM PUBLIC SERVICES ASSISTANT): In the setting of LYONS cirrhosis. Diuretics [...] (08/22/2022): Added automatically from request for surgery [id number] Portal vein thrombosis 08/01/202208/22 Assessment & Plan (08/03/2022 1:09 PM PUBLIC SERVICES ASSISTANT): -Apixaban 2.5mg BID Assessment & Plan (08/02/2022 2:39 PM PUBLIC SERVICES ASSISTANT): -Apixaban 2.5mg BID Assessment & Plan (08/01/2022 3:27 PM PUBLIC SERVICES ASSISTANT): -Apixaban 2.5mg BID Assessment & Plan (08/01/2022 4:17 AM PUBLIC SERVICES ASSISTANT): Continue home apixaban LYONS (nonalcoholic steatohepatitis) 11/02/2021 07/15/2024 Abnormal mammogram of right breast 11/02/2020 08/22/2022 Preop cardiovascular exam 09/23/2019 Overview (09/23/2019): Added automatically from request for surgery [id number] Colon cancer screening 04/21/201908/22 Overview (04/21/2019): Added automatically from request for surgery [id number] Esophageal varices without bleeding (CMS/HCC) 04/21/20 19 08/22/2022 Overview (04/21/2019): Added automatically from request for surgery [id number] Mass of lower lobe of right lung 03/14/2018 02/24/2025 Cancer Staging:Clinical:Stage Unknown(cT1a, cNX) - Unsigned Steatosis of liver 05/20/2017 skilled nursing current use of ant icoagulant therapy 07/26/2016 08/22/2022 Neutropenia 07/14/2015 07/15/2024 Portal vein thrombosis 07/14/201508/22 BMI 45.0-49.9, adult 11/18/201405/29/ 024 Abnormal magnetic resonance imaging study 05/20/2014 08/22/2022 Biliary colic 05/10/2014 08/22/2022 Lesion of liver 04/30/2014 08/22/2022 Decreased granulocyte count 01/14/2014 07/15/2024 Lymphopenia 03/17/2013 07/15/2024 Lichen planus 06/03/2012 02/24/2025 Rash 03/25/2012 08/22/2022 Immunizations Immunization Administration Dates Next Due Hep B Vaccine 01/22/2024,12/18/2023 Influenza, Quadrivalent, Spl it, Intramuscular 05/01/2019,05/26/2015 Influenza, Quadrivalent, Spl it, Preservative Free, Intramuscular 07/02/2023,04/29/2020,05/01/2019,05/09,05/08/2018,05/23/2017,05/17/2016 Influenza, Trivalent, IM (MDV) 04/28/2021,2013 Influenza, Trivalent, Preser vative Free, Intramuscular 05/29/2013 [employer] [facility] ([employer]) SARS-CoV-2 Vaccination 10/17/2020 Pneumococcal Conjugate PCV 13 05/26/2015 Pneumococcal Polysaccharide PPV23 03/24/2014 RSV Vaccine, Pref, Recombina nt, Subunit, Adjuvanted, PF, IM (Arexvy) 12/18/2023 Tdap 03/24/2014 ZOSTER Recombinant 02/17/2020,05/29/2019 Social History Tobacco Use Types Packs/Day Years Used Date Smoking Tobacco: Former Cigarettes 0.5 51 1 970 - 2020 Smokeless Tobacco: Never Tobacco Cessation:Counseling Given: Not Answered [facility] larkities Answer Date Recorded In the past 12 months has [employer], gas, oil, or water [employer] threatened to shut off services in your [...] week 10/05/2024 How often do you attend [facility] or anabaptism services? Never 10/05/2024 Do you belong to any clubs o r organizations such as latter-day groups, unions, fraternal or athletic groups, or [...] time in the past [address] [facility], were you homeless or living in a [place] facility (including now)? No 10/05/2024 Personal Safety Answer Date Recorded Have you ever been in or are you currently in a harmful physical or emotional relationship or is someone making you feel afraid or unsafe? Denies 12/14/2024 Comments No Sex and Gender Information Value Date Recorded Sex Assigned at Not on file Legal Sex Female 8:22 AM PUBLIC SERVICES ASSISTANT Gender Identity Female 11/15/2021 2:30 AM [...] stage 3a chronic kidney disease, unspecified whether longwall foreman insulin use (HCC) HLA ANTIBODY SCREEN BY [...] 1:50 PM CDT Liver cirrhosis secondary to LOYNS (HCC) BILIRUBIN, DIRECT Routine 12/04/2024 1:50 PM [...] HEPATITIS C ANTIBODY Routine 06/16/2023 6:09 AM PUBLIC SERVICES ASSISTANT COLONOSCOPY 05/30/2022 9:28 AM CDT ALBUMIN CREATININE RATIO, URINE Routine 03/01/2021 2:45 PM CDT Type 2 diabetes mellitus without complication, unspecified whether penitentiary insulin use (HCC) from Last 3 Months or Most Recently Relevant to Health Maintenance Results * POCT glucose (02/19/2025 2:38 PM CDT) Glucose Blood, POC 153 Normal Fasting 70 - 100, Random <200 mg/dL Blood 02/19/2025 2:38 PM CDT Marina Kennedy MD PhD POINT OF CARE TEST ORDERA BLES Final Result * HLA Antibody Screen by PRA or SAB per Schedule (Class I and Class II) (02/17/2025 10:00 AM CDT) Blood 02/17/2025 10:0 0 AM CDT Narrative [facility] - PUBLIC SERVICES ASSISTANT Sample received in lab and stored. No testing performed at this time. us Timothy Pardo MD LAB BLOOD ORDERABL ES Final Result [facility] * (ABNORMAL) eGFR (02/10/2025 2:13 PM CDT) [...] ORDERABLES Fin al Result CHARISSA DUNNE [facility] [place] [address] * (ABNORMAL) Protime-INR (02/10/2025 2:13 PM CDT) PT 14.8(H) 9.7 - 13.0 sec INR 1.36(H) 0.90 - 1.20 [facility] Comment: Interpretive data Oral anticoagulant therapeutic ranges: Venous thromboembolism prophylaxis or treatment: 2.0-3.0 CARDIOLOGY Standard range: 2.0-3.0 High-intensity range: 2.5-3.5 Refer to indication-specific guidelines for appropriate target ranges for prosthetic heart valve replacement. Current interpretive data was last revised on 2019. Blood 02/10/2025 2:13 PM CDT 02/10/2025 2:55 PM CDT us Taiwo Vázquez MD LAB BLOOD ORDERABLES Fin al Result [facility] [place] [address] * (ABNORMAL) Comprehensive metabolic panel (02/10/2025 2:13 PM CDT) Pathologist [facility] Sodium 142 135 - 145 mmol/L Potassium, pl 3.9 3.3 - 4.9 mmol/L [facility] Chloride 105 97 - 110 mmol/L [facility] CO2 31 22 - 32 mmol/L [facility] Anion gap 6 2 - 15 mmol/L [facility] BUN 16 6 - 25 mg/dL [facility] Creatinine 1.68(H) 0.60 - 1.10 mg/dL [facility] Glucose 119 70 - 199 mg/dL [facility] Comment: Interpretive Data Fasting glucose [...] 2022. Calcium 8.8 8.5 - 10.3 mg/dL [facility] Bilirubin, total 1.6(H) 0.1 - 1.2 mg/dL [facility] Protein, pl 5.9(L) 6.5 - 8.5 g/dL [facility] Albumin 3.2(L) 3.5 - 5.0 g/dL [facility] Alk phos 99 40 - 130 Units/L [facility] ALT 20 7 - 45 Units/L [facility] AST 38 10 - 45 Units/L [facility] Blood 02/10/2025 2:13 PM CDT 02/10/2025 3:03 PM CDT us Taiwo Vázquez MD LAB BLOOD ORDERABLES Fin al Result [facility] [place] [address] * HLA Antibody Screen by PRA or SAB per Schedule (Class I and Class II) (01/20/2025 10:00 AM CDT) Blood 01/20/2025 10:0 0 AM CDT Narrative HISTOTRAC - PUBLIC SERVICES ASSISTANT Sample received in lab. Single Antigen Antibody [...] a method developed and validated by the [facility] HLA laboratory based on an FDA-approved IVD kit (hoohbecreen Single-Antigen, [employer], [facility] [place]). All patient serum samples are pretreated with EDTA before the screen to prevent complement interference. Additional serum treatments, such as adsorption and DTT treatment, may be performed as indicated. Interpretive comments: Low risk: MFI [id number]. Moderate risk: MFI [id number]. Increased risk: MFI >/= 5000. The presence [...] antigens to avoid. Testing performed at the [facility] Laboratory, [address], 5th floor, [facility], [place], [address]. [facility] # [id number]. Rani Smith, Ph.D., [employer] Sales Consultant, HLA Laboratory Aurelio Palafox M.D., Ph.D., Retail Office Manager, HLA Laboratory Norma Talamantes, Ph.D., [place] Retail Office Manager, [facility] Clinical Laboratories Current methodology [...] MD LAB BLOOD ORDERABLES Final Result [facility]ISSA [facility] [place] [address] * (ABNORMAL) Protime-INR (01/11/2025 1:08 PM CDT) PT 15.8(H) 9.7 - 13.0 sec INR 1.45(H) 0.90 - 1.20 [facility] Comment: Interpretive data Oral anticoagulant therapeutic ranges: Venous thromboembolism prophylaxis or treatment: 2.0-3.0 CARDIOLOGY Standard range: 2.0-3.0 High-intensity range: 2.5-3.5 Refer to indication-specific guidelines for appropriate target ranges for prosthetic heart valve replacement. Current interpretive data was last revised on 2019. Blood 01/11/2025 1:08 PM CDT 01/11/2025 1:45 PM CDT us Molina Charles MD LAB BLOOD ORDERABLES Final Result [facility] Department [place] [address] * (ABNORMAL) Comprehensive metabolic panel (01/11/2025 1:08 PM CDT) Pathologist [facility] Sodium 141 135 - 145 mmol/L Potassium, pl 3.6 3.3 - 4.9 mmol/L [facility] Chloride 105 97 - 110 mmol/L [facility] CO2 29 22 - 32 mmol/L [facility] Anion gap 7 2 - 15 mmol/L [facility] BUN 17 6 - 25 mg/dL [facility] Creatinine 1.56(H) 0.60 - 1.10 mg/dL [facility] Glucose 150 70 - 199 mg/dL [facility] Comment: Interpretive Data Fasting glucose [...] 2022. Calcium 8.7 8.5 - 10.3 mg/dL [facility] [place] Bilirubin, total 1.9(H) 0.1 - 1.2 mg/dL [facility] [place] Protein, pl 6.4(L) 6.5 - 8.5 g/dL [facility] [place] Albumin 3.2(L) 3.5 - 5.0 g/dL [facility] [place] Alk phos 97 40 - 130 Units/L [facility] ALT 17 7 - 45 Units/L [facility] AST 32 10 - 45 Units/L [facility] Blood 01/11/2025 1:08 PM CDT 01/11/2025 1:45 PM CDT Molina Charles MD LAB BLOOD ORDERABLES Final Result Performing Organization Address City/[facility]/ZIP Co de Phone Number [facility] [place] [address] * HLA Antibody Screen by PRA or SAB per Schedule (Class I and Class II) (12/15/2024 10:00 AM CDT) Blood 12/15/2024 10:0 0 AM CDT Narrative HISTOTRAC - PUBLIC SERVICES ASSISTANT Sample received in lab and stored. No [...] Female Attending MD: Mercy Adler M.D. Room: [facility] ENDOSCOPY ROOM 03 Note Status: Finalized [...] and oxygen saturations were monitored continuously. The [id number] was introduced through the mouth, and advanced [...] - [facility] [...] was last revised on 2014. POC Performer [id number] [facility] POC Device Number [id number] [facility] Blood 12/14/2024 8:56 AM CDT 12/14/2024 8:56 AM CDT us Mercy Adler MD PhD LAB POCT ORDER RAVEN - DEVICE Final Result [facility] [address] [facility] [place] [address] * (ABNORMAL) eGFR (12/04/2024 1:50 [...] Inclusion of Race in Diagnosing Kidney Disease, KHADARSN 2020). The CKD-EPI equation should not be used for patients with unstable renal function and has not been validated in children and those over 70. Current interpretive data was last reviewed 2021. Blood 12/04/2024 1:50 PM CDT 12/04/2024 3:19 PM CDT us Taiwo Vázquez MD LAB BLOOD ORDERABLES Fin al Result [facility] [place] [address] * (ABNORMAL) Differential, auto (12/04/2024 1:50 PM CDT) Neutrophil abs 2.07 1.50 - 6.50 K/cumm Imm gran abs 0.01 0.00 - 0.10 K/cumm [facility] Lymphocyte abs 0.76(L) 0.80 - 3.30 K/cumm [facility] Monocyte abs 0.28 0.20 - 0.80 K/cumm [facility] Eosinophil abs 0.53(H) 0.00 - 0.50 K/cumm [facility] Basophil abs 0.02 0.00 - 0.10 K/cumm [facility] Neutrophil pct 56.5 % [facility] Comment: Interpretive Data Percent cell count reference ranges are not reported, since discordance with absolute values may lead to misinterpretation of CBC data. Current Interpretive Data was last revised on 2017. Imm gran pct 0.3 % [facility] Comment: Interpretive Data Percent cell count reference ranges are not reported, since discordance with absolute values may lead to misinterpretation of CBC data. Current Interpretive Data was last revised on 2017. Lymphocyte pct 20.7 % [facility] [place] Comment: Interpretive Data Percent cell count reference ranges are not reported, since discordance with absolute values may lead to misinterpretation of CBC data. Current Interpretive Data was last revised on 2017. Monocyte pct 7.6 % [facility] [place] Comment: Interpretive Data Percent cell count reference ranges are not reported, since discordance with absolute values may lead to misinterpretation of CBC data. Current Interpretive Data was last revised on 2017. Eosinophil pct 14.4 % [facility] Comment: Interpretive Data Percent cell count reference ranges are not reported, since discordance with absolute values may lead to misinterpretation of CBC data. Current Interpretive Data was last revised on 2017. Basophil pct 0.5 % [facility] Comment: Interpretive Data Percent cell count reference ranges are not reported, since discordance with absolute values may lead to misinterpretation of CBC data. Current Interpretive Data was last revised on 2017. Blood 12/04/2024 1:50 PM CDT 12/04/2024 3:08 PM CDT Taiwo Vázquez MD LAB BLOOD ORDERABLES Fin al Result [facility] [place] [address] * (ABNORMAL) CBC with auto differential (12/04/2024 1:50 PM CDT) WBC 3.67(L) 3.80 - 9.90 K/cumm Hgb 10.4(L) 11.9 - 15.5 g/dL [facility] Hct 30.5(L) 35.6 - 45.5 % [facility] Plt 53(L) 150 - 400 K/cumm [facility] MPV 11.9 9.1 - 12.3 fL [facility] RBC 3.29(L) 3.90 - 5.20 M/cumm [facility] MCV 92.7 81.3 - 96.4 fL [facility] MCH 31.6 27.1 - 33.3 pg [facility] MCHC 34.1 32.3 - 35.7 g/dL [facility] RDW CV 14.6 11.1 - 14.9 % [facility] RDW SD 49.7(H) 35.7 - 48.1 fL [facility] NRBC abs 0.00 0.00 - 0.01 K/cumm [facility] Blood 12/04/2024 1:50 PM CDT 12/04/2024 3:08 PM CDT Taiwo Vázquez MD LAB BLOOD ORDERABLES Fin al Result Performing Organization Address City/State/[facility] Co de Phone Number [facility] [place] [address] * (ABNORMAL) Protime-INR (12/04/2024 1:50 PM CDT) PT 15.6(H) 9.7 - 13.0 sec INR 1.43(H) 0.90 - 1.20 [facility] Comment: Interpretive data Oral anticoagulant [...] ORDERABLES Fin al Result Performing Organization Address [facility] Co de Phone Number [facility] [place] [place] [address] * (ABNORMAL) Bilirubin, direct (12/04/2024 1:50 PM CDT) Bilirubin, direct 0.8(H) 0.1 - 0.3 mg/dL Blood 12/04/2024 1:50 PM CDT 12/04/2024 3:08 PM CDT Taiwo Vázquez MD LAB BLOOD ORDERABLES Fin al Result Performing Organization Address City/[facility] Co de Phone Number [facility] [place] [address] * (ABNORMAL) Comprehensive metabolic panel (12/04/2024 1:50 PM CDT) Sodium 145 135 - 145 mmol/L Potassium, pl 3.5 3.3 - 4.9 mmol/L [facility] Chloride 108 97 - 110 mmol/L [facility] CO2 33(H) 22 - 32 mmol/L [facility] Anion gap 4 2 - 15 mmol/L [facility] BUN 16 6 - 25 mg/dL [facility] Creatinine 1.49(H) 0.60 - 1.10 mg/dL [facility] Glucose 139 70 - 199 mg/dL [facility] Comment: Interpretive Data Fasting glucose [...] 2022. Calcium 8.9 8.5 - 10.3 mg/dL [facility] Bilirubin, total 1.8(H) 0.1 - 1.2 mg/dL [facility] Protein, pl 6.0(L) 6.5 - 8.5 g/dL [facility] Albumin 3.2(L) 3.5 - 5.0 g/dL [facility] Alk phos 98 40 - 130 Units/L [facility] ALT 17 7 - 45 Units/L [facility] AST 34 10 - 45 Units/L [facility] Blood 12/04/2024 1:50 PM CDT 12/04/2024 3:08 PM CDT us Taiwo Vázquez MD LAB BLOOD ORDERABLES Fin al Result [facility] [place] [address] * Hemoglobin A1c (11/25/2024 9:40 AM CDT) Hgb A1C 5.5 4.0 - 5.6 % Estimated Average Glucose 111 mg/dL [facility] Comment: The ADA recommends reporting an estimated [...] MD LAB BLOOD ORDERABLES Fin al Result [facility] [place] [address] * Pap and High Risk HPV and Genotyping (Cytology Component) (04/28/2024 10:41 AM CDT) Thin prep (Pap test) 04/28/2024 10:41 AM CDT 04/28/2024 1:00 PM CDT Narrative PATHOLOGY [facility] - 05/04/2024 4:21 PM CDT EPIC results best viewed via link to PDF [facility] Chelsea Cronin [facility] [place] [address] Note to Patients: This report may contain [...] Gender: Michelle : 1960 (Age: 63) Address: [address] [place] [id number] Hospital #: [id number] Service: Medical Location: [place] [address] Patient Type: [facility] Inpatient Taken: 04/28/2024 Received: 04/28/2024 Accessioned: [...] this test have been verified by the [facility] Molecular Infectious Disease laboratory. Correlate with reported cytology results, as applicable. Interpretive data last revised [facility]05/04/2024 16:21 JEANNIE Worthington(ASCP) Report Electronically Reviewed [...] results be correlated for laboratory quality assurance engineer & improvement standards. FOR ALL HIGH-GRADE [...] determined by the Surgical Pathology Department at [facility] as part of an ongoing quality control program and in compliance with federally mandated [...] determined by the Surgical Pathology Department of [facility]. It has not been cleared or approved by the U. S. Food and Drug Administration. Eladio Carey MD LAB CYTOLOGY ORDERABLES Final Result PATHOLOGY [facility] 3rd Floor [place], [place] [phone] * Screening Mammogram Bilateral W Pal (04/27/2024 1:55 PM CDT) Anatomical Region Laterality Modality Breast Bilateral Mammography Narrative 04/27/2024 1:52 PM CDT Mammogram Technique: Bilateral Digital Breast Tomosynthesis, Bilateral C-view 2D Screening mammogram. Views obtained: bilateral craniocaudal and bilateral mediolateral oblique. Computer Aided Detection was performed. Mammogram Findings: The present examination has been compared to prior imaging studies performed at [facility] on 05/15/2021 and 12/06/2021. [...] compared to prior imaging studies performed at [facility] on 05/15/2021 and 12/06/2021. [...] on 2018. HDL 64 >=40 mg/dL [facility] Comment: Interpretive Data Ages < or [...] 2018. LDL, calculated 47 <=129 mg/dL [facility] Comment: Interpretive Data Ages < or [...] NCEP Expert Panel. Circulation 2004;110:227 3. Gavin Sumner al. SCOTT Cardiol. 2020 December 10;5(5):540-548. doi: 10.1001/jamacardio.2020.0013 Current Interpretive Data was last revised on 2024. Non-HDL Cholesterol 58 mg/dL [facility] Comment: Interpretive Data Ages < or [...] last revised on 2018. Chol/HDL ratio 2 [facility] Blood 04/22/2024 12:5 8 AM CDT 04/22/2024 3:00 AM CDT us John Paul Reddy MD LAB BLOOD ORDERABLES Final Resul t Performing Organization Address City/[facility]/ZIP Co de Phone Number [facility] Department [place] [employer] [place] [address] * Hepatitis C antibody Blood (06/16/2023 6:09 AM PUBLIC SERVICES ASSISTANT) Hep C Ab Nonreactive Nonreactive [facility] Comment:Antibodies to HCV no t detected. Does NOT exclude the possibility of recent exposure to HCV. Current interpretive data was last revised on 22 Blood 06/16/2023 6:09 AM PUBLIC SERVICES ASSISTANT 06/16/2023 6:35 AM PUBLIC SERVICES ASSISTANT us Alejandro Frazier MD LAB MICROBIOLOGY - GENERAL ORDERABLES Final Result Performing Organization Address City/[facility] Co de Phone Number [facility] Department [place] [place] [address] * COLONOSCOPY (05/30/2022 9:28 AM CDT) Anatomical Region Laterality Modality Other Narrative Procedure Note Pat Robins MD - 05/30/2022 9:28 AM CDT [facility] Patient Name: Aleah Levine Procedure Date: 05/30/2022 9:28 AM Date of : 1960 Admit Type: Outpatient Age: 61 Gender: Female Attending MD: Pat Robins M.D. Room: [facility] ENDOSCOPY ROOM 3 Note Status: Finalized [...] The scope was passed under direct vision.The [facility] [id number] endoscope was introducedthrough the anus and advanced [...] On: 05/30/2022 9:28 AM Recognized by the [employer] for promoting quality in endoscopy us Pat Robins MD ENDOSCOPY PROCEDURES Ju l Result * Albumin Creatinine Ratio, Urine (03/01/2021 2:45 PM CDT) Albumin Ur <12.0 mg/L [facility] Comment: Interpretive Data No reference range established. Current interpretive data was last revised 2018. Creatinine Ur 59.5 mg/dL [facility] Comment: Interpretive Data No reference range established. Current interpretive data was last revised 2018. Albumin Creatinine Ratio, Ur <20 1 - 29 mg/g [facility] Urine 03/01/2021 2:45 PM CDT 03/01/2021 3:41 PM CDT Oly Baker MD LAB URINE ORDER RAVEN Final Result [facility] [place] [address] from Last 3 Months or Most Recently Relevant to Health Maintenance Insurance [facility] Member Subscriber Plan / Payer (Ef fective 2018-Present) Name:Aleah Levine Relation to Subscriber:Not on file Subscriber ID:Not on file Payer ID:[id number] (NAIC) Type: [place] Address: [facility] [id number] ANTH ACCESS Member Subscriber Plan / Payer (Ef fective 2018-Present) Name:Aleah Levine Relation to Subscriber:Self Name:ALEAH LEVINE Payer ID:[id number] (NAIC) Type: [employer]IANCE Address: [id number] ACCESS OOS Member Subscriber Plan / Payer (Ef fective 2021-Present) Name:Aleah Levine Relation to Subscriber:Self Name:Aleah Levine Payer ID:[id number] (NAIC) Type: ALLIANCE Address: [address] [facility] H[facility]/PPO Address: [address] [address] [place] [address] TRANSPLANT [employer] MEDICARE ADVANTAGE [facility] Address: [address] [address] [place] [address] [facility] MEDICARE ADVANTAGE [facility] Address: [address] [address] [place] [address] TR[employer]PLANT [employer] MED[employer]ARE RISK Advance Directives For more information, please contact: [phone] * Full Code (Latest Code Status on [...] 8:35 AM 02/05/2023 7:30 PM Care Teams Dandy Operator Relationship Specialty Start Date End Date Maddy Romano MD [address] [place] [address] PCP - General 09/28/16 Manas Ibarra MD [address] [place] [address] Referring Physician Thoracic Surgery 11/05/18 Zion Barton MD [address] [place] [address] Radiation Oncologist Radiation Oncology 05/05/19 Molina Charles MD 1 [facility] [address] [place] [address] Referring Physician Transplant Hepatology 12/15/20 Karuna Maria, OT Occupational Therapist Occupational Therapy 09/20/22 Renu Treviño NP [address] [facility] [address] [place] [address] Nurse Practitioner Radiation Oncology 11/08/22 Eladio Mcrae MD [address] [facility] [address] [place] [address] Referring Physician Obstetrics and Gynecology 11/15/22 Marcy Schroeder, RN [address] [place], [place] [id number] Green Building Energy Engineer 04/27/24 Chelsea Barker, as400 operatorGreen Building Energy Engineer 11/13/24
--- OUTSIDE RECORDS SUMMARY | 2025-03-05 11:30 | XMS_ITS ---
Author Organization [facility] Address [address] [place] [address] Care Team Providers Care Administrative Clerk Name Role Phone Maddy Romano MD Primary Care Provider [phone] Manas Ibarra MD Unavailable Zion Barton MD Unavailable Molina Charles MD Unavailable [phone] Karuna Maria OT Unavailable Unavaila Renu Paul NP Unavailable [phone] Eladio Mcrae MD Unavailable [phone] Marcy Schroeder RN Unavailable [phone] Chelsea Barker RN Unavailable Unavail able Transplant Episode Liver Candidate [facility] ([place], [place]) - [facility] Center waitlisted on 08/17/2022 Marked as Active on 09/28/2024 Reason[facility] Liver CoordinatorChelsea Barker RN Phone: N/A Fax: N/A Email: N/A Scores Score Value Updated Expires Exceptions/Opelika sons CPRA Not available UNOS MELD 18 02/10/2025 05/11/2025 MELD (Calc) 18 02/10/2025 [place] Organ Diagnosis Organ Primary Contributory Liver Cirrhosis: Metabolic Dysfunction -Associated Steatohepatitis (MASH) Care Team Name Role Phone Fax Email Chelsea Barker, TYRA Liver Coordinator N/A N/A N/A Charito Lambert, DEVONTE Dietitian N/A N/A N/A Anna Ngo, ZAINAB Line Haul Truck Driver N/A N/A N/A Molina Charles MD Referring Physician [phone] N/A Cynthia Robert RN Secondary Coordinator [phone] N/A N/A [place] Bear Report Specialist [phone] N/A N/A Faith Lopez Primary Helium Arc Welder N/A N/A N/A Events Pre-Transplant Referred: 10/26/2021 Evaluation began: 11/02/2021 Committee: 08/07/2022 Center waitlisted: 08/17/2022 Appointments (02/03/2025 - 04/05/2025) When With Visit Type Description 02/10/2025 Lab LAB VISIT 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
--- OUTSIDE RECORDS SUMMARY | 2025-03-05 11:30 | XMS_ITS | Encounter Summary ---
Author Organization [facility] Address [address] [place] [address] Phone Care Team Providers Care History Department Chair Name Role Phone Maddy Romano MD Primary Care Provider Astrid Haq NP Unavailable Manas Ibarra MD Unavailable Zion Barton MD Unavailable Molina Charles MD Unavailable [phone] Inés Lemus RN Unavailable [phone] Karnua Maria OT Unavailable Unavaila Renu Paul NP Unavailable [phone] Eladio Mcrae MD Unavailable Marcy Schroeder RN Unavailable [phone] Briana Poe RN Unavailable [phone] Marina Le RN Unavailable Chelsea Barker RN [...] on file Legal Sex Female 8:22 AM CLINICAL NUTRITION MANAGER Gender Identity Female 11/15/2021 2:30 AM [...] COVID: Suspected 09/24/2024 09/24/2024 09/24/2024 3:13 PM CLINICAL NUTRITION MANAGER documented as of this encounter Care Teams History Department Chair Relationship Specialty Start Date End Date Maddy Romano MD [address] [place] [address] PCP - General 09/28/16 Astrid Haq NP [address] [place], [place] [id number] Nurse Practitioner Radiation Oncology 11/05/18 11/07/22 Manas Ibarra MD [address] [place], [place] [address] Referring Physician Thoracic Surgery 11/05/18 Zion Barton MD [address] [place], [place] [address] Radiation Oncologist Radiation Oncology 05/05/19 Molina Charles MD 1 [facility] [address] [place] [address] Referring Physician Transplant Hepatology 12/15/20 Inés Lemus, TYRA [address] [facility] [address] [place] [address] Manager Environmental Services 10/31/21 5 Karuna Maria OT Occupational Therapist Occupational Therapy 09/20/22 Renu Treviño NP [address] [facility] [address] [place] [address] Nurse Practitioner Radiation Oncology 11/08/22 Eladio Mcrae MD [address] [place] [address] Referring Physician Obstetrics and Gynecology 11/15/22 Marcy Schroeder, RN [address] [place] [address] Manager Environmental Services 04/27/24 Briana Poe TYRA [address] [facility] [address] [place] [address] SHOP Outpatient Lead Nurse 04/30/24 05/28/24 Marina Le RN [address] [facility] [address] [place] [address] [facility] Outpatient Lead Nurse 10/05/24 10/26/24 Chelsea Barker, filter tender jellyManager Environmental Services 11/13/24 documented as of this encounter
--- OUTSIDE RECORDS SUMMARY | 2025-03-05 11:30 | XMS_ITS | Encounter Summary ---
Author Organization [facility] Address [address] [place] [address] Phone Care Team Providers Care Boat Puller Name Role Phone Maddy Romano MD Primary Care Provider Astrid Haq NP Unavailable Manas Ibarra MD Unavailable Zion Barton MD Unavailable Molina Charles MD Unavailable [phone] Inés Lemus RN Unavailable [phone] Karuna Maria OT Unavailable Unavaila Renu Paul NP Unavailable Eladio Mcrae MD Unavailable [phone] Marcy Schroeder RN Unavailable [phone] Briana Poe RN Unavailable [phone] Marina Le RN Unavailable [phone] Chelsea Barker RN Unavailable Unavail able Encounter [...] on file Legal Sex Female 8:22 AM HEAD WAITRESS Gender Identity Female 11/15/2021 2:30 AM CDT [...] COVID: Suspected 09/24/2024 09/24/2024 09/24/2024 3:13 PM HEAD WAITRESS documented as of this encounter Care Teams Boat Puller Relationship Specialty Start Date End Date Maddy Romano MD [address] [place] [address] PCP - General 09/28/16 Astrid Haq NP [address] [place] [address] Nurse Practitioner Radiation Oncology 11/05/18 11/07/22 Manas Ibarra MD [address] [place] [address] Referring Physician Thoracic Surgery 11/05/18 Zion Barton MD [address] [place] [address] Radiation Oncologist Radiation Oncology 05/05/19 Molina Charles MD 1 [facility] [address] [place] [address] Referring Physician Transplant Hepatology 12/15/20 Inés Lemus RN [address] [facility] [address] [place] [address] Band [place] 10/31/21 5 Karuna Maria, OT Occupational Therapist Occupational Therapy 09/20/22 Renu Treviño NP [address] [facility] [address] [place], [place] [address] Nurse Practitioner Radiation Oncology 11/08/22 Eladio Mcrae MD [address] [place], [place] [address] Referring Physician Obstetrics and Gynecology 11/15/22 Marcy Schroeder, RN [address] [place] [address] Band [place] 04/27/24 Briana Poe RN [address] [facility] [address] [place] [address] SHOP Outpatient Machine Overhauler 04/30/24 05/28/24 Marina Le RN [address] [facility] [address] [place] [address] SHOP Outpatient Machine Overhauler 10/05/24 10/26/24 Chelsea Barker, boilermaker central steam plantBand [place] 11/13/24 documented as of this encounter
[2025-03-05 11:43] LABS: Add Urine Microscopic? YES; Appearance Urine Clear (Clear); Glucose Urine UA Negative (Negative); Leukocyte Esterase Ur Negative LEU/UL (Negative); Nitrate Urine Negative (Negative); Specific Grav Ur <= 1.005 (1.010-1.020)
[2025-03-05 11:45] LABS: Hematocrit 34.1 % (35.0-49.0); Hemoglobin 11.0 g/dL (12.0-15.0); Immature Platelet Fraction Pct 1.7 % (1.0-7.0); Mean Corpuscular HGB Conc 32.3 g/dL (32-36); Mean Corpuscular Hemoglobin 30.6 pg (27.0-31.0); Mean Corpuscular Volume 95.0 fL (78.0-102.0); Platelet Count Result 56 K/mm3 (150-420); Red Blood Count 3.59 M/mm3 (4.20-5.40); White Blood Count 4.2 K/mm3 (4.8-10.8)
[2025-03-05 12:05] LABS: Eosinophils Absolute Manual 0.67 K/mm3 (0.02-0.50); Eosinophils Percent Manual 16 % (1-6); Lymphocytes Absolute Manual 0.67 K/mm3 (1.1-4.5); Lymphocytes Percent Manual 16 % (18-44); Monocytes Absolute Manual 0.42 K/mm3 (0.1-0.90); Monocytes Percent Manual 10 % (3-9); Neutrophils Absolute Manual 2.26 K/mm3 (1.3-6.7); Neutrophils Percent Manual 54 % (46-73); Total Cells Counted 100
[2025-03-05 12:06] LABS: Schistocytes None Seen
[2025-03-05 12:17] LABS: Albumin Level 3.1 g/dL (3.5-5.1); Anion Gap 4 mmol/L (4-12); Blood Urea Nitrogen 18 mg/dL (7-17); Calcium 8.5 mg/dL (8.4-10.2); Carbon Dioxide 31 mmol/L (22-30); Chloride 105 mmol/L (98-107); Estimated Glomerular Filt Rate 35; Glucose 103 mg/dL (65-110); Iron 124 ug/dL (37-170); Osmolality Calculated 291 mOsm/kg (285-295); Potassium 3.8 mmol/L (3.4-5.0); Sodium 140 mmol/L (137-145)
[2025-03-05 12:27] LABS: Percent Iron Saturation 36 % (20-50)
[2025-03-05 12:53] LABS: Ferritin 25.40 ng/mL (11.1-264)
== END 2025-03-05 11:24 | disposition home or self-care (01) ==
PROVIDERS: PCP Internal Medicine
DX: N18.32 Chronic kidney disease, stage 3b (principal); D63.1 Anemia in chronic kidney disease; N17.9 Acute kidney failure, unspecified; E55.9 Vitamin D deficiency, unspecified; I12.9 Hypertensive chronic kidney disease with stage 1 through stage 4 chronic kidney disease, or unspecified chronic kidney disease
CPT/HCPCS: 36415; 80069; 81001; 82306; 82610; 82728; 83540; 83550; 85025; 85055

== ENCOUNTER 2025-04-13 11:07 | Observation (INO) | payer MEDICARE, SELFPAY ==
[2025-04-13] VITALS (22 sets, daily range): BP systolic 137–160; BP diastolic 51–65; PULSE 78–94; RESP 18–20; TEMP 36.5–36.7; O2SAT 93–100; BMI 39.8
--- NOTE | ~2025-04-13 | CT_ITS ---
EXAM: CT brain wo con - 04/13/2025 11:45 CDT History: 64 years old Female with more confused COMPARISON: 09/24/2024 PROCEDURE: CT of the head without contrast. Axial, sagittal and coronal reformatted planes were evaluated. Automatic exposure control was used for this study. FINDINGS: BRAIN PARENCHYMA: No acute hemorrhage. No mass effect or herniation. Bear-white matter differentiation is maintained. Mild chronic volume loss. Scattered hypodensities in subcortical and periventricular white matter, likely representing chronic microvascular ischemic changes in this age group. Atherosc lerotic calcification of the intracranial vessels is noted. VENTRICLES/ EXTRA-AXIAL SPACES: No hydrocephalus or extra-axial fluid collection. EXTRACRANIAL STRUCTURES: No calvarial fracture. IMPRESSION: No evidence for acute intracranial hemorrhage or calvarial fracture. Reviewed, dictated and finalized at location N.
--- NOTE | ~2025-04-13 | XR_ITS ---
EXAMINATION: XR chest 1V portable DATE: 04/13/2025 12:06 INDICATION: Weakness TECHNIQUE: frontal view of the chest was obtained. COMPARISON: Chest radiograph dated 09/24/2024 FINDINGS: Unchanged mild eventration of the right hemidiaphragm. The lungs are clear with no focal airspace opacities, pulmonary edema, pleural effusion or pneumothorax. The cardiomediastinal silhouette is normal. Old fracture deformity at the right humeral neck. IMPRESSION: 1. No acute cardiopulmonary disease. Reviewed, dictated and finalized at location A.
--- NOTE | 2025-04-13 11:12 | ED.GENADULT ---
HPI - General Adult General Chief complaint: Extremity Problem,Nontraumatic Stated complaint: tingling in legs Time Seen by Provider: 04/13/25 11:12 Source: patient Mode of arrival: ambulatory Limitations: no limitations History of Present Illness HPI narrative: 64 years old white female came with her by private car from home complaining of not feeling well, fuzzy head, restlessness, confused, wobbly gait, trouble talking, increased hours of sleep often on for the last 2 weeks. History of diabetes, fatty liver disease / cirrhosis on the liver transplant list. Patient referred to our emergency room by her family physician office for further evaluation. In the ED patient denies any fever, chills, nausea, vomiting. Her main complaint at this moment is numbness tingling and weakness of the lower extremities Related Data Home Medications ?Medication ?Instructions ?Recorded ?Confirmed ?Last Taken ?Type ondansetron HCl 4 mg tablet 4 mg PO DAILY PRN nausea and 04/01/24 04/13/25 Unknown History vomiting bumetanide 1 mg tablet 2 mg PO DAILY 09/24/24 04/13/25 04/13/25 History insulin glargine 100 unit/mL 44 unit subcut QPM DIABETES 09/24/24 04/13/25 04/12/25 History subcutaneous solution (Lantus U-100 Insulin) insulin lispro 100 unit/mL 8 unit subcut DAILY 09/24/24 04/13/25 04/13/25 History subcutaneous solution (Humalog U-100 Insulin) lactulose 20 gram/30 mL oral 0.03 g PO TID 09/24/24 04/13/25 04/13/25 History solution spironolactone 100 mg tablet 100 mg PO DAILY 09/24/24 04/13/25 04/13/25 History thiamine mononitrate (vit B1) 100 100 mg PO DAILY 09/24/24 04/13/25 04/13/25 History mg tablet ciclopirox 8 % topical solution 1 applic topical DAILY 04/13/25 04/13/25 Unknown History metolazone 10 mg tablet 10 mg PO .Bi-weekly 04/13/25 04/13/25 Unknown History rifaximin 550 mg tablet (Xifaxan) 550 mg PO BID 04/13/25 04/13/25 04/13/25 History tirzepatide 5 mg/0.5 mL 5 mg subcut WEEKLY 04/13/25 04/13/25 Unknown History subcutaneous pen injector (Mounjosé luisro) Allergies Allergy/AdvReac Type Severity Reaction Status Date / Time Sulfa (Sulfonamide Allergy Mild ITCHING Verified 04/13/25 11:45 Antibiotics) sulfanilamide Allergy Unknown Other Verified 04/13/25 11:45 Review of Systems Review of Systems: All systems reviewed & are unremarkable except as noted in HPI and below PMFSH Past Medical History Medical History Hyperammonemia Liver failure Confusion Cirrhosis C. difficile colitis (~12/2019) Lung cancer Portal vein thrombosis HTN (hypertension) Thrombocytopenia Diabetes mellitus Surgical History Surgical History H/O sinus surgery History of liver biopsy History of endometrial ablation Family History Family History Mother Family history of malignant neoplasm of breast in first degree relative Father Family history of malignant neoplasm of esophagus Mother Cerebrovascular accident Sibling Hypertension Congestive heart failure Social History Social History Smoking packs per day: 0.5 Smoking cigarettes per day: 10.0 Years smoked: 51 Smoking pack-years: 25.50 Smoking status: Former smoker Tobacco type: cigarettes Second hand tobacco smoke exposure: Yes Smoking end date: 10/10/21 Alcohol intake: unknown Drinks per week: 1 Substance use: unknown Substance use type: does not use Gender identity (if verbalized by the patient): Female Spiritual care concerns: No (she is a [employer]) Exam Narrative: General appearance: Well-developed, well-nourished Skin: Normal color Head: Normocephalic, nontraumatic Eyes: Clear conjunctiva ENT: Oropharynx normal, ears normal, nose normal Neck: Supple, nontender Chest and respiratory: Airway patent, no respiratory distress, no accessory muscle use Heart: Regular rate/rhythm Abdomen: Soft, nontender, no organomegaly, quiet bowel sounds Vascular: Normal peripheral pulses, normal capillary refill. Musculoskeletal: Normal range of motion, nontender back Neurologic: Alert and oriented ?3, AIRSET MOLDER is normal as tested, no gross motor deficit Course Vital Signs Vital signs: Vital Signs Temperature 36.7 C 04/13/25 11:08 Pulse Rate 90 04/13/25 11:08 Respiratory Rate 20 04/13/25 11:08 Blood Pressure 139/55 L 04/13/25 11:08 Pulse Oximetry 98 04/13/25 11:08 Oxygen Delivery Room Air 04/13/25 11:08 Temperature 36.7 C 04/13/25 11:08 Pulse Rate 94 04/13/25 11:10 Respiratory Rate 18 04/13/25 11:10 Blood Pressure 145/53 H 04/13/25 12:02 Pulse Oximetry 99 04/13/25 12:02 Oxygen Delivery Room Air 04/13/25 11:08 Medical Decision Making MDM Narrative Medical decision making narrative: patient came with feeling weak, cloudy brain, more confusion more lethargy often on for the last 2 weeks Vital signs are stable Physical examination trace edema lower extremity bilaterally Differential diagnosis include anxiety/ depression related symptoms, electrolyte imbalance, dehydration, hepatic encephalopathy, urinary tract infection Blood workup today includes CBC, CMP, ammonia level, CPK, coags showed Urinalysis showed Chest x-ray showed CT head without contrast showed Urinalysis showed Differential Diagnosis Differential Diagnosis: as above Vital Signs Vital Signs: Vital Signs Temperature 36.7 C 04/13/25 11:08 Pulse Rate 90 04/13/25 11:08 Respiratory Rate 20 04/13/25 11:08 Blood Pressure 139/55 L 04/13/25 11:08 Pulse Oximetry 98 04/13/25 11:08 Oxygen Delivery Room Air 04/13/25 11:08 Temperature 36.7 C 04/13/25 11:08 Pulse Rate 94 04/13/25 11:10 Respiratory Rate 18 04/13/25 11:10 Blood Pressure 145/53 H 04/13/25 12:02 Pulse Oximetry 99 04/13/25 12:02 Oxygen Delivery Room Air 04/13/25 11:08 Lab Data 04/13/25 11:36 04/13/25 11:37 Labs: Lab Results 04/13/25 04/13/25 04/13/25 Range/Units 11:36 11:37 11:40 WBC 5.1 (4.8-10.8) K/mm3 RBC 3.74 L (4.20-5.40) M/mm3 Hgb 11.6 L (12.0-15.0) g/dL Hct 34.5 L (35.0-49.0) % MCV 92.2 (78.0-102.0) fL MCH 31.0 (27.0-31.0) pg MCHC 33.6 (32-36) g/dL RDW 14.9 H (11.6-14.4) % Plt Count 68 L (150-420) K/mm3 MPV 11.1 (9.2-11.8) fl Immature Gran % (Auto) 0.2 H (0.0-0.0) % Neut % (Auto) 57.2 (50.0-70.0) % Lymph % (Auto) 20.8 (18.0-42.0) % Vance % (Auto) 12.1 H (2.0-11.0) % Eos % (Auto) 9.1 H (1.0-6.0) % Baso % (Auto) 0.6 (0.0-1.0) % Lymph # (Auto) 1.07 L (1.10-4.50) K/mm3 Vance # (Auto) 0.62 (0.10-0.90) K/mm3 Eos # (Auto) 0.47 (0.02-0.50) K/mm3 Baso # (Auto) 0.03 (0.00-0.10) K/mm3 Abs Immat Gran (auto) 0.01 H (0.00-0.00) K/mm3 Absolute Neuts (auto) 2.94 (1.70-7.20) K/mm3 Absolute Nucleated RBC 0.00 (0.00-0.00) K/mm3 Nucleated RBC % 0.0 (0-0.0) % % Immature Plt Fraction 2.3 (1.0-7.0) % PT 11.8 (9.50-12.1) Seconds INR 1.1 APTT 25.3 (23.9-30.70) Sec Sodium 133 L (137-145) mmol/L Potassium 3.3 L (3.4-5.0) mmol/L Chloride 95 L (98-107) mmol/L Carbon Dioxide 31 H (22-30) mmol/L Anion Gap 7 (4-12) mmol/L BUN 38 H D (7-17) mg/dL Creatinine 1.84 H (0.7-1.0) mg/dL Estim Creat Clear Calc 37 ml/min Estimated GFR 28 L (59 - ) Glucose 204 H (65-110) mg/dL POC Capillary Glucose 195 H (65-105) mg/dl Calculated Osmolality 291 (285-295) mOsm/kg Calcium 9.4 (8.4-10.2) mg/dL Total Bilirubin 2.4 H (0.2-1.3) mg/dL AST 42 H (14-36) U/L ALT 27 (6-35) U/L Alkaline Phosphatase 90 (38-126) U/L Ammonia 84 H (9-30) umol/L Total Creatine Kinase 67 (30-135) U/L Total Protein 6.4 (6.3-8.2) g/dL Albumin 3.4 L (3.5-5.1) g/dL TSH 1.490 (0.465-4.680) uIU/mL Urine Color (Yellow) Urine Appearance (Clear) Urine pH (5.0-8.0) Ur Specific Stevenson (1.010-1.020) Urine Protein (Negative) Urine Glucose (UA) (Negative) Urine Ketones (Negative) Ur Blood (Man) (Negative) Urine Nitrate (Negative) Urine Bilirubin (Negative) Urine Urobilinogen (0.2-1.0) mg/dL Leukocyte Esterase Rfl (Negative) СВЕТЛАНА/UL 04/13/25 Range/Units 12:18 WBC (4.8-10.8) K/mm3 RBC (4.20-5.40) M/mm3 Hgb (12.0-15.0) g/dL Hct (35.0-49.0) % MCV (78.0-102.0) fL MCH (27.0-31.0) pg MCHC (32-36) g/dL RDW (11.6-14.4) % Plt Count (150-420) K/mm3 MPV (9.2-11.8) fl Immature Gran % (Auto) (0.0-0.0) % Neut % (Auto) (50.0-70.0) % Lymph % (Auto) (18.0-42.0) % Vance % (Auto) (2.0-11.0) % Eos % (Auto) (1.0-6.0) % Baso % (Auto) (0.0-1.0) % Lymph # (Auto) (1.10-4.50) K/mm3 Vance # (Auto) (0.10-0.90) K/mm3 Eos # (Auto) (0.02-0.50) K/mm3 Baso # (Auto) (0.00-0.10) K/mm3 Abs Immat Gran (auto) (0.00-0.00) K/mm3 Absolute Neuts (auto) (1.70-7.20) K/mm3 Absolute Nucleated RBC (0.00-0.00) K/mm3 Nucleated RBC % (0-0.0) % % Immature Plt Fraction (1.0-7.0) % PT (9.50-12.1) Seconds INR APTT (23.9-30.70) Sec Sodium (137-145) mmol/L Potassium (3.4-5.0) mmol/L Chloride (98-107) mmol/L Carbon Dioxide (22-30) mmol/L Anion Gap (4-12) mmol/L BUN (7-17) mg/dL Creatinine (0.7-1.0) mg/dL Estim Creat Clear Calc ml/min Estimated GFR (59 - ) Glucose (65-110) mg/dL POC Capillary Glucose (65-105) mg/dl Calculated Osmolality (285-295) mOsm/kg Calcium (8.4-10.2) mg/dL Total Bilirubin (0.2-1.3) mg/dL AST (14-36) U/L ALT (6-35) U/L Alkaline Phosphatase (38-126) U/L Ammonia (9-30) umol/L Total Creatine Kinase (30-135) U/L Total Protein (6.3-8.2) g/dL Albumin (3.5-5.1) g/dL TSH (0.465-4.680) uIU/mL Urine Color Light yellow (Yellow) Urine Appearance Clear (Clear) Urine pH 7.0 (5.0-8.0) Ur Specific Stevenson 1.010 (1.010-1.020) Urine Protein Negative (Negative) Urine Glucose (UA) Negative (Negative) Urine Ketones Negative (Negative) Ur Blood (Man) Negative (Negative) Urine Nitrate Negative (Negative) Urine Bilirubin Negative (Negative) Urine Urobilinogen 0.2 (0.2-1.0) mg/dL Leukocyte Esterase Rfl Negative (Negative) СВЕТЛАНА/UL Discharge Plan Discharge Clinical Impression: TR (acute kidney injury), Acute hepatic encephalopathy Patient Disposition: Still a Patient Condition: Stable Patient Language: [place] Prescriptions: No Action ondansetron HCl 4 mg tablet 4 mg PO DAILY PRN (Reason: nausea and vomiting) thiamine mononitrate (vit B1) 100 mg tablet 100 mg PO DAILY insulin glargine [Lantus U-100 Insulin] 100 unit/mL solution 44 unit subcut QPM spironolactone 100 mg tablet 100 mg PO DAILY bumetanide 1 mg Tablet 2 mg PO DAILY insulin lispro [Humalog U-100 Insulin] 100 unit/mL Solution 8 unit subcut DAILY Rx Instructions: WITH PROTEIN DRINK. TAKE WITH MEAL UP TO 150 BLOOD GLUCOSE LEVEL +1 FOR EVERY 50 POINTS lactulose 20 gram/30 mL solution 0.03 g PO TID ciclopirox 8 % solution 1 applic TOPICAL DAILY metolazone 10 mg tablet 10 mg PO .Bi-weekly Xifaxan 550 mg tablet 550 mg PO BID Mounjaro 5 mg/0.5 mL pen injector 5 mg SUBCUT WEEKLY pantoprazole 40 mg tablet,delayed release (DR/EC) 40 mg PO DAILY Qty: 30 0RF
--- NOTE | 2025-04-13 11:35 | PC.NURSE ---
Laboratory at bedside for lab draw.
--- OUTSIDE RECORDS SUMMARY | 2025-04-13 11:39 | XMS_ITS | Encounter Summary ---
Author Organization [facility] Address [address] [place] [address] Care Team Providers Care Account Strategist Name Role Phone Maddy Romano MD Primary Care Provider + [phone] Manas Ibarra MD Unavailable Zion Barton MD Unavailable [phone] Molina Charles MD Unavailable [phone] Inés Lemus RN Unavailable [phone] Karuna Maria OT Unavailable Unavaila Renu Paul NP Unavailable [phone] Eladio Mcrae MD Unavailable [phone] Marcy Schroeder RN Unavailable [phone] Briana Poe RN Unavailable [phone] Marina Le RN Unavailable Chelsea Barker RN Unavailable Unavail able Encounter Details Date Type Department Care Team (Late st Contact Info) Description 05/11/2024 Telephone [facility] [address] [place] [address] Ragini Wheeler, RN Social History Tobacco Use Types Packs/Day Years Used Date Smoking Tobacco: Former Cigarettes 0.5 51 1 970 - 2020 Smokeless Tobacco: Never [facility] Utilities Answer Date Recorded In the past 12 months has th e electric, gas, oil, or water company threatened to shut off services in your home? No 04/30/2024 Social Connection and Isolation Panel Answer Date Recorded In a typical week, how many times do you talk on the phone with family, friends, or neighbors? More than three times a week 04/30/2024 How often do you get togethe r with friends or relatives? More than three times a week 04/30/2024 How often do you attend chur ch or gnosticism services? Never 04/30/2024 Do you belong to any clubs o r organizations such as mandaeism groups, unions, fraternal or athletic groups, or [...] on file Legal Sex Female 8:22 AM ACCOUNTS RECEIVABLE SUPERVISOR Gender Identity Female 11/15/2021 2:30 AM [...] COVID: Suspected 09/24/2024 09/24/2024 09/24/2024 3:13 PM ACCOUNTS RECEIVABLE SUPERVISOR documented as of this encounter Care Teams Account Strategist Relationship Specialty Start Date End Date Maddy Romano MD [address] [id number] PCP - General 09/28/16 Manas Ibarra MD [address] [place] [address] Referring Physician Thoracic Surgery 11/05/18 Zion Barton MD [address] [place] [address] Radiation Oncologist Radiation Oncology 05/05/19 Molina Charles MD 1 [facility] [address] [place] [address] Referring Physician Transplant Hepatology 12/15/20 Inés Lemus RN [address] [facility] [address] [place] [address] Flame Cutter 10/31/21 5 Karuna Maria, OT Occupational Therapist Occupational Therapy 09/20/22 Renu Treviño NP [address] [facility] [address] [place] [address] Nurse Practitioner Radiation Oncology 11/08/22 Eladio Mcrae MD [address] [place] [address] Referring Physician Obstetrics and Gynecology 11/15/22 Marcy Schroeder RN [address] [place] [address] Flame Cutter 04/27/24 Briana Poe, TYRA [address] [facility] [address] [place] [address] SHOP Outpatient Director Mobile 04/30/24 05/28/24 Marina Le, RN [address] [facility] [address] [place] [address] SHOP Outpatient Director Mobile 10/05/24 10/26/24 Chelsea Barker, bonsai culturistFlame Cutter 11/13/24 documented as of this encounter
--- OUTSIDE RECORDS SUMMARY | 2025-04-13 11:40 | XMS_ITS | Encounter Summary ---
Author Organization [facility] Address [address] [place] [address] Care Team Providers Care Airline Pilot/First Officer Name Role Phone Maddy Romano MD Primary Care Provider [phone] Astrid Haq NP Unavailable Manas Ibarra MD Unavailable Zion Barton MD Unavailable Molina Charles MD Unavailable [phone] Inés Lemus RN Unavailable [phone] Karuna Maria OT Unavailable Unavaila Renu Paul NP Unavailable [phone] Eladio Mcrae MD Unavailable [phone] Marcy Schroeder RN Unavailable [phone] Briana Poe RN Unavailable [phone] Marina Le RN Unavailable Chelsea Barker RN Unavailable Unavail able Reason for Visit * Reason Onset Date Comments Ready to scheduled 04/26/2022 Encounter Details Date Type Department Care Team (Late st Contact Info) Description 04/26/2022 Telephone [facility] Specialty Services [address] [place] [address] Miscellaneous, Not In File Ready to scheduled [...] on file Legal Sex Female 8:22 AM ENTRY LEVEL ACCOUNTING CLERK Gender Identity Female 11/15/2021 2:30 AM [...] COVID: Suspected 09/24/2024 09/24/2024 09/24/2024 3:13 PM ENTRY LEVEL ACCOUNTING CLERK documented as of this encounter Care Teams Airline Pilot/First Officer Relationship Specialty Start Date End Date Maddy Romano MD [address] [place] [address] PCP - General 09/28/16 Astrid Haq NP [address] [place] [address] Nurse Practitioner Radiation Oncology 11/05/18 11/07/22 Manas Ibarra MD [address] [place] [address] Referring Physician Thoracic Surgery 11/05/18 Zion Barton MD [address] [place] [address] Radiation Oncologist Radiation Oncology 05/05/19 Molina Charles MD 1 [facility] [address] [place] [address] Referring Physician Transplant Hepatology 12/15/20 Inés Lemus, TYRA [address] [facility] [address] [place] [address] Medical Underwriter 10/31/21 5 Karuna Maria, OT Occupational Therapist Occupational Therapy 09/20/22 Renu Treviño NP [address] [facility] [address] [place] [address] Nurse Practitioner Radiation Oncology 11/08/22 Eladio Mcrae MD [address] [place] [address] Referring Physician Obstetrics and Gynecology 11/15/22 Marcy Schroeder RN [address] [place] [address] Medical Underwriter 04/27/24 Briana Poe, TYRA [address] [address] SHOP Outpatient Fun House Operator 04/30/24 05/28/24 Marina Le RN [address] [place] [address] [facility] Outpatient Fun House Operator 10/05/24 10/26/24 Chelsea Barker, mercerizerMedical Underwriter 11/13/24 documented as of this encounter
--- OUTSIDE RECORDS SUMMARY | 2025-04-13 11:40 | XMS_ITS | Encounter Summary ---
Author Organization [facility] Address [address] [place] [address] Phone Care Team Providers Care Cadd Instructor Name Role Phone Maddy Romano MD Primary Care Provider [phone] Astrid Haq NP Unavailable [phone] Manas Ibarra MD Unavailable Zion Barton MD Unavailable Molina Charles MD Unavailable [phone] Inés Lemus RN Unavailable [phone] Karuna Maria OT Unavailable Unavaila Renu Paul NP Unavailable Eladio Mcrae MD Unavailable Marcy Schroeder RN Unavailable [phone] Briana Poe RN Unavailable Marina Le RN Unavailable Chelsea Barker RN Unavailable Unavail able Encounter Details Date Type Department Care Team (Late st Contact Info) Description 08/11/2021 Orders Only [facility] Scanning, Provider Social History Tobacco Use Types Packs/Day Years Used Date Smoking Tobacco: Former Cigarettes Q uit: 2010 Smokeless Tobacco: Never Comments No Sex and Gender Information Value Date Recorded Sex Assigned at Not on file Legal Sex Female 8:22 AM DIANETIC COUNSELOR Gender Identity Female 11/15/2021 2:30 AM CDT [...] COVID: Suspected 09/24/2024 09/24/2024 09/24/2024 3:13 PM DIANETIC COUNSELOR documented as of this encounter Care Teams Cadd Instructor Relationship Specialty Start Date End Date Maddy Romano MD [address] [place] [address] PCP - General 09/28/16 Astrid Haq NP [address] [place], [place] [address] Nurse Practitioner Radiation Oncology 11/05/18 11/07/22 Manas Ibarra MD [address] [place], [place] [address] Referring Physician Thoracic Surgery 11/05/18 Zion Barton MD [address] [place], [place] [address] Radiation Oncologist Radiation Oncology 05/05/19 Molina Charles MD [address] [facility] [address] [place] [address] Referring Physician Transplant Hepatology 12/15/20 Insé Lemus, TYRA [address] [facility] [address] [place] [address] Sound Designer 10/31/21 5 Karuna Maria OT Occupational Therapist Occupational Therapy 09/20/22 Renu Treviño NP [address] [facility] [address] [place] [address] Nurse Practitioner Radiation Oncology 11/08/22 Eladio Mcrae MD [address] [place] [address] Referring Physician Obstetrics and Gynecology 11/15/22 Marcy Schroeder, RN [address] [place] [address] Sound Designer 04/27/24 Briana Poe TYRA [address] [facility] [address] [place] [address] SHOP Outpatient Lounge Car Attendant 04/30/24 05/28/24 Marina Le RN [address] [facility] [address] [place] [address] [facility] Outpatient Lounge Car Attendant 10/05/24 10/26/24 Chelsea Barker, buffer nickelSound Designer 11/13/24 documented as of this encounter
--- OUTSIDE RECORDS SUMMARY | 2025-04-13 11:40 | XMS_ITS ---
Author Organization [facility] Address [address] [place] [address] Care Team Providers Care Service Establishment Attendant Name Role Phone Maddy Romano MD Primary Care Provider Manas Ibarra MD Unavailable Zion Barton MD Unavailable Molina Charles MD Unavailable [phone] Karuna Maria OT Unavailable Unavaila Renu Paul NP Unavailable [phone] Eladio Mcrae MD Unavailable [phone] Marcy Schroeder RN Unavailable [phone] Chelsea Barker RN Unavailable Unavail able Transplant Episode Kidney Candidate [facility] ([place], [place]) [facility] Center waitlisted on 05/07/2024 Marked as Inactive on 05/26/2024 Reason: Candidate requires multi-organ [place] only, isolated offers not accepted Kidney CoordinatorMarcy Schroeder RN Email: N/A Scores Score Value Updated Exceptions/Reas ons CPRA Not available EPTS (Calc) 56 04/13/2025 [place] Organ Diagnosis Organ Primary Contributory Kidney Other, 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
--- OUTSIDE RECORDS SUMMARY | 2025-04-13 11:40 | XMS_ITS | Encounter Summary ---
Author Organization [facility] Address [address] [place] [address] Care Team Providers Care Manager Pool Name Role Phone Maddy Romano MD Primary Care Provider [phone] Manas Ibarra MD Unavailable Zion Barton MD Unavailable Molina Charles MD Unavailable [phone] Karuna Maria OT Unavailable Unavaila Renu Paul NP Unavailable [phone] Eladio Mcrae MD Unavailable [phone] Marcy Schroeder RN Unavailable [phone] Chelsea Barker RN Unavailable Unavail able Encounter Details Date Type Department Care Team (Latest Contact Info) Description 02/11/2025 Results Follow-Up [facility] Transplant Liver [address] [facility] [address] [place] [address] Chelsea Barker, RN Protime-INR, Comprehensive metabolic panel, eGFR Social History Tobacco Use Types Packs/Day Years Used Date Smoking Tobacco: Former Cigarettes 0.5 51 1 - 2020 Smokeless Tobacco: Never [facility] Utilities Answer Date Recorded In the past 12 months has e electric, gas, oil, or water company threatened to shut off services in your home? No 10/05/2024 Social Connection and Isolation Panel Answer Date Recorded In a typical week, how many times do you talk on the phone with family, friends, or neighbors? More than three times a week 10/05/2024 How often do you get togethe r with friends or relatives? More than three times a week 10/05/2024 How often do you attend chur ch or alevism services? Never 10/05/2024 Do you belong to any clubs o r organizations such as caodaism groups, unions, fraternal or athletic groups, or [...] any time in the past 12 m [facility], were you homeless or living in [...] on file Legal Sex Female 8:22 AM TOOL DRAWING CHECKER Gender Identity Female 11/15/2021 2:30 AM [...] on filedocumented in this encounter Care Teams Manager Pool Relationship Specialty Start Date End Date Maddy Romano MD [address] [place] [address] PCP - General 09/28/16 Manas Ibarra MD [address] [place] [address] Referring Physician Thoracic Surgery 11/05/18 Zion Barton MD [address] [place] [address] Radiation Oncologist Radiation Oncology 05/05/19 Molina Charles MD 1 [facility] [address] [place] [address] Referring Physician Transplant Hepatology 12/15/20 Karuna Maria, OT Occupational Therapist Occupational Therapy 09/20/22 Renu Treviño NP [address] [facility] [address] [place] [address] Nurse Practitioner Radiation Oncology 11/08/22 Eladio Mcrae MD [address] [place] [address] Referring Physician Obstetrics and Gynecology 11/15/22 Macry Schroeder, RN [address] [place], [place] [address] Fund Raiser 04/27/24 Chelsea Barker, country printer apprenticeFund Raiser 11/13/24 documented as of this encounter
--- OUTSIDE RECORDS SUMMARY | 2025-04-13 11:40 | XMS_ITS | Encounter Summary ---
Author Organization [facility] Address [address] [place] [address] Phone Care Team Providers Care Chief Internal Auditor Name Role Phone Maddy Romano MD Primary Care Provider [phone] Astrid Haq NP Unavailable [phone] Manas Ibarra MD Unavailable Zion Barton MD Unavailable Molina Charles MD Unavailable +[phone] Inés Lemus RN Unavailable [phone] Karuna Maria OT Unavailable Unavaila Renu Paul NP Unavailable [phone] Eladio Mcrae MD Unavailable [phone] Marcy Schroeder RN Unavailable [phone] Briana Poe RN Unavailable [phone] Marina Le RN Unavailable Chelsea Barker RN [...] file Legal Sex Female 8:22 AM FLIGHT TEACHER Gender Identity Female 11/15/2021 2:30 AM [...] COVID: Suspected 09/24/2024 09/24/2024 09/24/2024 3:13 PM FLIGHT TEACHER documented as of this encounter Care Teams Chief Internal Auditor Relationship Specialty Start Date End Date Maddy Romano MD [address] [place] [address] PCP - General 09/28/16 Astrid Haq NP [address] [place] [address] Nurse Practitioner Radiation Oncology 11/05/18 11/07/22 Manas Ibarra MD [address] [place] [address] Referring Physician Thoracic Surgery 11/05/18 Zion Barton MD [address] [place] [address] Radiation Oncologist Radiation Oncology 05/05/19 Molina Charles MD [address] [place] [address] [address] [place] [address] Referring Physician Transplant Hepatology 12/15/20 Inés Lemus, TYRA [address] [facility] [address] [place] [address] Combiner 10/31/21 5 Karuna Maria, OT Occupational Therapist Occupational Therapy 09/20/22 Renu Treviño NP [address] [facility] [address] [place] [address] Nurse Practitioner Radiation Oncology 11/08/22 Eladio Mcrae MD [address] [facility] [address] [place] [address] Referring Physician Obstetrics and Gynecology 11/15/22 Marcy Schroeder RN [address] [place] [address] Combiner 04/27/24 Briana Poe, TYRA [address] [address] [facility] Outpatient Section Plotter Operator 04/30/24 05/28/24 Marina Le RN [address] [address] [facility] Outpatient Section Plotter Operator 10/05/24 10/26/24 Chelsea Barker, digital marketing associateCombiner 11/13/24 documented as of this encounter
--- OUTSIDE RECORDS SUMMARY | 2025-04-13 11:40 | XMS_ITS | Clinical Summary ---
Author Organization [facility] Address [address] [place] [address] Care Team Providers Care Top Installer Name Role Phone Maddy Romano MD Primary Care Provider Active Problems Problem Noted Date Diagnosed Date [...] patient's age to complete this topic Insurance [facility] Care Teams Top Installer Relationship Specialty Start Date End Date Maddy Romano MD [address] [place] [address] PCP - General INTERNAL MEDICINE 01/16/23
--- OUTSIDE RECORDS SUMMARY | 2025-04-13 11:40 | XMS_ITS ---
Author Organization [facility] Address [address] [place] [address] Care Team Providers Care Rolled Materials Worker Name Role Phone Maddy Romano MD Primary Care Provider [phone] Manas Ibarra MD Unavailable Zion Barton MD Unavailable Molina Charles MD Unavailable [phone] Karuna Maria OT Unavailable Unavaila Renu Paul NP Unavailable [phone] Eladio Mcrae MD Unavailable [phone] Marcy Schroeder RN Unavailable [phone] Chelsea Barker RN Unavailable Unavail able Transplant Episode Liver Candidate [facility] ([place], [place]) - [facility] Center waitlisted on 08/17/2022 Marked as Active on 09/28/2024 Reason[facility] CoordinatorChelsea Barker RN Phone: N/A Fax: N/A Email: N/A Scores Score Value Updated Expires Exceptions/[place] sons CPRA Not available UNOS MELD 18 02/10/2025 05/11/2025 MELD (Calc) 23 04/09/2025 [place] Organ Diagnosis Organ Primary Contributory Liver Cirrhosis: Metabolic Dysfunction -Associated Steatohepatitis (MASH) Care Team Name Role Phone Fax Email Chelsea Barker, TYRA Liver Coordinator N/A N/A N/A Charito Lambert, DEVONTE Dietitian N/A N/A N/A Anna Ngo, OPHTHALMIC ASSISTANT Hydrographic Engineer N/A N/A N/A Molina Charles MD Referring Physician [phone] N/A Cynthia Robert RN Secondary Coordinator [phone] N/A N/A Celsa Vargas Primary Analytics Senior Manager N/A N/A N/A [place] Bear Reviewer Sales [phone] N/A N/A Events Pre-Transplant Referred: 10/26/2021 Evaluation began: 11/02/2021 Committee: 08/07/2022 Center waitlisted: 08/17/2022 Appointments (03/13/2025 - 05/13/2025) When With Visit Type Description 03/24/[address] IMAGING VISIT Lung nodule 03/24/2025 Radiology - [facility] MRI Imaging Visit 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
--- OUTSIDE RECORDS SUMMARY | 2025-04-13 11:40 | XMS_ITS | Clinical Summary ---
Author Organization [facility] Address [address] [place] [address] Care Team Providers Care Nutrition Worker Name Role Phone Maddy Romano MD Primary Care Provider Manas Ibarra MD Unavailable Zion Barton MD Unavailable [phone] Molina Charles MD Unavailable [phone] Karuna Maria OT Unavailable Unavaila Renu Paul NP Unavailable [phone] Eladio Mcrae MD Unavailable [phone] Marcy Schroeder RN Unavailable [phone] Chelsea Barker RN Unavailable Unavail able [...] tablet 11 07/23/20 24 025 Active blood-glucose transmitter (Dexcom G6 Transmitter) deviceIndications: Type 2 diabetes mellitus without complication, unspecified whether prison insulin use (HCC) Will use 1 transmitter every 90 days 1 each 1 08/19/19 25 Active pen needle, diabetic (BD Ultra-Fine Mini Pen Needle) 31 gauge x 3/16 needleIndications: Type 2 diabetes mellitus without complication, unspecified whether downstream biomanufacturing technician insulin use (HCC) USE TO INJECT INSULIN SIX TIMES PER DAY 200 each 11 09/23/19 25 Active glucagon 1 mg kit Inject 1 mg into the muscle once as directed by provider for low blood sugar. 1 kit 10/02/19 25 Active lactulose solution 10 gram/15mLIndicatio ns:Portosystemic encephalopathy Take 30 mL (20 g total) by mouth 3 (three) times a day 3785 mL 3 11/26/19 25 Active Xifaxan 550 mg tabletIndications: Hepatic encephalopathy (HCC),Cirrhosis of liver without ascites, unspecified hepatic cirrhosis type (HCC) TAKE 1 TABLET(550 MG) BY MOUTH TWICE DAILY 60 tablet 11 12/23/19 25 Active ciclopirox (PENLAC) 8 % solution 1 Application 12/11/19 25 025 Active insulin glargine (LANTUS) 100 unit/mL (3 mL) pen for injectionIndicatio ns:Type 2 diabetes mellitus with stage 3a chronic kidney disease, unspecified whether prison insulin use (HCC) Inject 44 Units under the skin nightly 45 mL 3 02/20/20 25 Active insulin lispro (HumaLOG, ADMELOG) 100 unit/mL pen for injectionIndicatio ns:Type 2 diabetes mellitus with stage 3a chronic kidney disease, unspecified whether prison insulin use (HCC) Inject 8 units with meals tid, plus sliding scale up to 40u daily 15 mL 02/20/20 25 026 Active blood-glucose sensor (Dexcom G6 Sensor) deviceIndications: Type 2 diabetes mellitus with stage 3a chronic kidney disease, unspecified whether prison insulin use (HCC) Will use 1 sensor every 10 days. 1 box = 3 sensors. 3 each 02/20/20 25 Active tirzepatide (Mounjaro) 5 mg/0.5 mL pen injector injectionIndicatio ns:Type 2 diabetes mellitus with stage 3a chronic kidney disease, unspecified whether prison insulin use (HCC) Inject 0.5 mL (5 mg total) under the skin once a week 2 mL 02/20/20 026 Active spironolactone (ALDACTONE) 100 mg tablet Take 2 tablets (200 mg total) by mouth daily 02/25/20 026 Active metOLazone (ZAROXOLYN) 10 mg tablet Take 1 tablet (10 mg total) by mouth 2 (two) times a week 30 tablet 2 03/25/20 25 Active bumetanide (BUMEX) 1 mg tabletIndications: Stage 3b chronic kidney disease (HCC) Take 2 tablets (2 mg total) by mouth every morning AND 1 tablet (1 mg total) every afternoon 270 tablet 1 03/25/20 25 Active bumetanide (BUMEX) 1 mg tabletIndications: Stage 3b chronic kidney disease (HCC) Take 2 tablets (2 mg total) by mouth daily 270 tablet 10/15/19 25 025 Discontin ued(Reord er) Active Problems Problem Noted Date Diagnosed Date [...] 10/10/2022 Assessment & Plan (10/12/2022 12:20 PM MANAGER STATISTICAL): Episode of atrial flutter overnight with RVR up to 140s. Patient asymptomatic, normotensive. IV metoprolol X2 given to achieve rate control. [id number] vasc score of 3. TTE from 09/03 without valvular abnormalities. No new episodes today. Lytes within normal limits. - Continue quality assurance monitor body - Continue home dose of metoprolol 25mg BID - Given that patient might be listed for transplant, hepatology would prefer to avoid apixaban. Lovenox is not ideal given her platelet count less than 100. Her INR is too high to consider warfarin. Anemia 10/05/2022 Assessment & Plan (10/11/2022 12:28 PM MANAGER STATISTICAL): - Hgb has down trended from 8 [...] daily Assessment & Plan (10/11/2022 12:45 PM MANAGER STATISTICAL): -Continue home dose of metoprolol 25mg BID Hepatic encephalopathy 07/31/2022 Assessment & Plan (03/06/2023 5:49 PM CDT): Good control on current medical management. No changes indicated. Assessment & Plan (08/03/2022 1:05 PM MANAGER STATISTICAL): Pt with hx of LYONS cirrhosis presenting with progressively worsening mental status over past several weeks. On initial examination patient was AAOx1, on subsequent exam she is now AAOx2 with appropriate responses. NH3 75. Unfortunately no safe area for bedside diagnostic paracentesis. Slurred speech and concerns for swallowing. EXECUTIVE ASST completed swallow study and normal. Head CT: No acute intracranial abnormality. -Awaiting Liver MRI -Increased Lactulose to 4x daily (only 1 stool on 08/02) - Rifaximin and Lactulose (goal 3-5 bowel movements) - Fall precautions. - PT/OT: Home with assistance. Assessment & Plan (08/02/2022 2:34 PM MANAGER STATISTICAL): Pt with hx of LYONS cirrhosis presenting with progressively worsening mental status over past several weeks. On initial examination patient was AAOx1, on subsequent exam she is now AAOx2 with appropriate responses. NH3 75. Unfortunately no safe area for bedside diagnostic paracentesis. Slurred speech and concerns for swallowing. EXECUTIVE ASST completed swallow study and normal. Head CT: No acute intracranial abnormality. - Rifaximin and Lactulose (goal 3-5 bowel movements) - Fall precautions. - PT/OT: Home with assistance. - EXECUTIVE ASST completed bedside swallow and Normal Assessment & Plan (08/01/2022 3:28 PM MANAGER STATISTICAL): Pt with hx of LYONS cirrhosis presenting [...] concerns for swallowing. - Fall precautions. - EXECUTIVE ASST/PT/OT Consults. Assessment & Plan (08/01/2022 4:16 AM MANAGER STATISTICAL): Pt with hx of LYONS cirrhosis presenting [...] and exercise - Plan for meeting with art educator, dietitian next visit Assessment & Plan (10/12/2022 2:58 PM MANAGER STATISTICAL): Previously on dose reduced insulin regimen at OSH 20u lantus, 7u tid lispro + ssi. - Her blood sugars were initially on the lower side (90-100) in setting of poor po intake and TR. Continue SSI only for now and will uptitrate as needed. - Continue Lantus 10u/daily + lispro 4TID Assessment & Plan (08/03/2022 1:09 PM MANAGER STATISTICAL): Home regimen of toujeo 42 units + SSI. -Lantus, Lispro TID AC and SSI -No Juice Diet -Consistent Carb+ 2gm NA diet. -CTM BGL Assessment & Plan (08/02/2022 2:38 PM MANAGER STATISTICAL): Home regimen of toujeo 42 units + SSI. -Lantus, Lispro TID AC and SSI -No Juice Diet -Consistent Carb+ 2gm NA diet. -CTM BGL Assessment & Plan (08/01/2022 3:26 PM MANAGER STATISTICAL): Home regimen of toujeo 42 units + SSI. Given TR and decreased PO intake, insulin regimen reduced to Lantus 20units. - Continue on 2g Na + DM2 diet - CTM BGL Assessment & Plan (08/01/2022 4:17 AM MANAGER STATISTICAL): Home regimen of toujeo 42 units + [...] (10/22/2022): Added automatically from request for surgery [id number] Volume overload 10/06/2022 05/29/2024 Assessment & Plan (10/10/2022 1:09 PM MANAGER STATISTICAL): In the setting of LYONS cirrhosis. Diuretics [...] (08/22/2022): Added automatically from request for surgery [id number] Portal vein thrombosis 08/01/202208/22 Assessment & Plan (08/03/2022 1:09 PM MANAGER STATISTICAL): -Apixaban 2.5mg BID Assessment & Plan (08/02/2022 2:39 PM MANAGER STATISTICAL): -Apixaban 2.5mg BID Assessment & Plan (08/01/2022 3:27 PM MANAGER STATISTICAL): -Apixaban 2.5mg BID Assessment & Plan (08/01/2022 4:17 AM MANAGER STATISTICAL): Continue home apixaban LYONS (nonalcoholic steatohepatitis) 11/02/2021 07/15/2024 Abnormal mammogram of right breast 11/02/2020 08/22/2022 Preop cardiovascular exam 09/23/2019 Overview (09/23/2019): Added automatically from request for surgery [id number] Colon cancer screening 04/21/201908/22 Overview (04/21/2019): Added automatically from request for surgery [id number] Esophageal varices without bleeding (CMS/HCC) 04/21/20 19 08/22/2022 Overview (04/21/2019): Added automatically from request for surgery [id number] Mass of lower lobe of right lung 03/14/2018 02/24/2025 Cancer Staging:Clinical:Stage Unknown(cT1a, cNX) - Unsigned Steatosis of liver 05/20/2017 [facility] current use of ant icoagulant therapy 07/26/2016 08/22/2022 Neutropenia 07/14/2015 07/15/2024 Portal vein thrombosis 07/14/201508/22 BMI 45.0-49.9, adult 11/18/2014 024 Abnormal magnetic resonance imaging study 05/20/2014 08/22/2022 Biliary colic 05/10/2014 08/22/2022 Lesion of liver 04/30/2014 08/22/2022 Decreased granulocyte count 01/14/2014 07/15/2024 Lymphopenia 03/17/2013 07/15/2024 Lichen planus 06/03/2012 02/24/2025 Rash 03/25/2012 08/22/2022 Encounters Date Type Department Care Team Description 04/13/2025 Telephone [facility] Transplant Liver [address] Mailstop -[address] [place] [address] KareledaCelsa 04/13/2025 Documentation [facility] Transplant Liver [address] Mailop -[address] [place] [address] Celsa Vargas 04/13/2025 Telephone [facility] Transplant Liver [address] [place] [address] [place], [place] [address]op -[address] [place] [address] Chelsea Barker, TYRA 04/13/2025 Results Follow-Up [facility] Transplant Liver [address] [place] [address] [place] [address]-[address] [place] [address] Chelsea Barker RN Comprehensive metabolic panel, Protime-INR, Urinalysis reflex to microscopic, Additional followed-up results: 2 04/09/2025 2:05 [place] [address] Metabolic dysfunction-associate d steatohepatitis (MASH) 04/08/2025 Telephone [facility] Transplant Liver [address] [place] [address] [place] [address] [place] [address] Chelsea Barker, TYRA 04/08/2025 Telephone [facility] Transplant Liver [address] [place] [address] [address] Mailstop [address] [place] [address] Chelsea Barker, RN 04/06/2025 Telephone [facility] Transplant Liver [address] Mailstop -[address] [place] [address] Chelsea Barker, TYRA 03/25/2025 Orders Only [facility] Nephrology [address] [place] [address] 5th [place] [address] [place] [address] Uri Casas MD Stage 3b chronic kidney disease (HCC) 03/25/2025 Telephone [facility] Transplant Liver [address] [facility] [address] Mailstop [phone] [place] [address] Chelsea Barker RN 03/24/2025 7:47 AM CDT - 03/24/2025 11:59 PM CDT Hospital Encounter [facility] [address] [place] [address] Lung nodule Discharge Disposition: Discharge to home or self care 03/24/2025 7:47 AM CDT - 03/24/2025 11:59 PM CDT Hospital Encounter [facility] [address] [place] [address] Taiwo Vázquez MD 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; Abnormal liver diagnostic imaging Discharge Disposition: Discharge to home or self care 03/23/2025 8:30 AM CDT Office Visit [facility] Nephrology [address] [facility] 5th [place] [address] [place] [address] Stage 3b chronic kidney disease (HCC) (Primary Dx) 03/09/2025 Telephone [facility] Nephrology [address] [facility] 5th [place] [address] [place] [address] Blas Fsiher MD appt 03/05/2025 Orders Only [facility] NEPHROLOGY Scanning, Provider 03/03/2025 Orders Only [facility] Nephrology [address] [facility] 5th [place] [address] [place] [address] Blas Fisher MD Stage 3b chronic kidney disease (HCC) (Primary Dx); Hypertension, unspecified type; Anemia in stage 3b chronic kidney disease (HCC); TR (acute kidney injury); Vitamin D deficiency 02/25/2025 Documentation [facility] Transplant Liver [address] [facility] [address] Mailstop 50-00-227 [place] [address] KareledaCelsa 02/25/2025 Orders Only [facility] Transplant Liver [address] [facility] [address] Mailstop -29-590 [place] [address] SamCelsa 02/24/2025 9:30 AM CDT Office Visit [facility] Gastroenterology [address] [facility] 12th [place] [address] [place] [address] Britnay Toribio MD Metabolic dysfunction-associate d steatohepatitis (MASH) (Primary Dx); Other pancytopenia (HCC); Type 2 diabetes mellitus with stage 4 chronic kidney disease, with long-term current use of insulin (HCC); Other cirrhosis of liver (HCC) 02/24/2025 Telephone [facility] Transplant Liver [address] [facility] [address] [facility] -38[address] [place] [address] Chelsea Barker RN 02/19/2025 3:00 PM CDT Office Visit [facility] Endocrinology Metabolism and Lipid [address] 13th [place] [address] [place] [address] Marina Kennedy MD PhD Type 2 diabetes mellitus with stage 3a chronic kidney disease, unspecified whether downstream biomanufacturing technician insulin use (HCC) (Primary Dx); Cirrhosis of liver without ascites, unspecified hepatic cirrhosis type (HCC); Class 3 severe obesity due to excess calories with serious comorbidity and body mass index (BMI) of 40.0 to 44.9 in adult; Primary hypertension; Stage 3b chronic kidney disease (HCC) 02/17/2025 10:00 AM CDT - 02/17/2025 11:59 PM CDT Hospital Encounter [address] [address] ESRD (end stage renal disease) (HCC) Discharge Disposition: Discharge to home or self care 02/11/2025 Telephone [facility] Transplant Liver [address] [facility] [address] Mailstop [phone] [place] [address] Chelsea Barker RN 02/11/2025 Results Follow-Up [facility] Transplant Liver [address] [facility] 34[address] Mailstop 11-33-274 [place] [address] Chelsea Barker, RN Protime-INR, Comprehensive metabolic panel, eGFR 02/10/2025 4:30 PM CDT Lab [facility] [address] [place] [phone] 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 02/10/2025 Telephone [facility] Transplant Liver [address] [facility] 340 Mailstop 00-04-6 [place] [address] Chelsea Barker, TYRA 02/07/2025 Telephone [facility] Transplant Liver [address] [facility] 340 Mailstop 02-41-9 [place] [address] Chelsea Barker, TYRA 02/05/2025 Telephone [facility] Transplant Liver [address] [facility] 340 Mailstop 10-61-240 [place] [address] Chelsea Barker, TYRA 01/20/2025 10:00 AM CDT - 01/20/2025 11:59 PM CDT Hospital [address] [address] ESRD (end stage renal disease) (HCC) Discharge Disposition: Discharge to home or self care 01/11/2025 3:25 PM CDT Lab [facility] [address] [place] [phone] Cirrhosis of liver without ascites, unspecified hepatic cirrhosis type (HCC) 01/11/2025 Telephone [facility] Transplant Liver [address] [facility] 340 Mailstop [phone] [place] [address] Chelsea Barker, RN from Last 3 Months Immunizations Immunization Administration Dates Next Due Hep B Vaccine 01/22/2024,12/18/2023 Influenza, Quadrivalent, Spl it, Intramuscular 05/01/2019,05/26/2015 Influenza, Quadrivalent, Spl it, Preservative Free, Intramuscular 07/02/2023,04/29/2020,05/01/2019,05/09,05/08/2018,05/23/2017,05/17/2016 Influenza, Trivalent, IM (MDV) 04/28/2021,2013 Influenza, Trivalent, Preser vative Free, Intramuscular 05/29/2013 [employer] ([employer]) ([employer]) SARS-CoV-2 Vaccination 10/17/2020 Pneumococcal Conjugate PCV [...] Tobacco Cessation:Counseling Given: Not Answered [facility] Utilities Answer Date Recorded In the past 12 months has [employer], gas, oil, or water [employer] threatened to shut off services in your [...] week 10/05/2024 How often do you attend [facility] or baptism services? Never 10/05/2024 Do you belong to any clubs o r organizations such as anglican groups, unions, fraternal or athletic groups, or [...] to sleep or slept in a senior care (including now)? No 12/31/2022 Housing Stability Vital Sign Answer Terrance e Recorded In the last 12 months, was t here a time when you were not able to pay the mortgage or rent on time? No 10/05/2024 In the past 12 months, how m any times have you moved where you were living? 0 10/05/2024 At any time in the past 12 m [facility], were you homeless or living in a senior care (including now)? No 10/05/2024 Personal Safety Answer Date Recorded Have you ever been in or are you currently in a harmful physical or emotional relationship or is someone making you feel afraid or unsafe? 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 file Obstetrics History Last Filed Vital Signs Vital Sign Reading Time Taken Comments Blood Pressure 138/61 03/23/2025 7:53 AM CDT Pulse 71 03/23/2025 7:51 AM CDT Temperature 36.7 C (98 F) 03/23/2025 7:51 AM CDT Respiratory Rate 19 12/14/2024 9:43 AM CDT Oxygen Saturation 97% 02/24/2025 8:45 AM CDT Inhaled Oxygen Concentration - - Weight 125 kg (275 lb 8 oz) 03/23/2025 7:51 AM C DT Height 170.2 cm (5' 7) 03/23/2025 7:51 AM CDT Body Mass Index 43.15 03/23/2025 7:51 AM CDT Plan of Treatment Scheduled Procedures [...] Tdap) 03/24/2024 03/24/2014 Covid-19 Vaccine (4 - 2024-2 6 season) 2025 07/02/2023, 09/11/2021, 10/17/2020 Influenza Vaccine (#1) 2025 , 07/02/2023, 04/28/2021, Additional history exists Lipid Panel 04/22/2025 04/22/2024, 03/13, 04/02/2024, Additional history exists Breast Cancer Screening-Mammogram 04/27/2025 024, 12/06/2021 Cervical Cancer Screening 04/28/2025 04/28/2024, Hemoglobin A1C 05/27/2025 11/25/2024, 0203/2025, 09/28/2024, Additional history exists eGFR 04/09/2026 04/09/2025, 0709/2024, 01/11/2025, Additional history exists Colon Cancer Screening-Colonoscopy 05/30/2032 05/30/2022, 10/26/2019 Zoster Vaccine Completed 02/17/2020, 05/29/2019 Colon Cancer Screening-CT Colonography Discontinued 05/30/2022, 10/26/2019 Colon Cancer Screening-DNA Stool Discontinued 05/30/20, 10/26/2019 Colon Cancer Screening-FIT Discontinued 05/30/2022, Colon Cancer Screening-Sigmoidoscopy Discontinued 05/30/2022, 10/26/2019 Hepatitis C Screening Completed 06/16/2023 , 06/16/2023, 01/05/2023, Additional history exists Procedures Procedure Name Priority Date/Time Associated Diagnosis Comments EGFR Routine 04/09/2025 2:25 PM CDT Metabolic dysfunction-associate d steatohepatitis (MASH) URINALYSIS, MICROSCOPIC ONLY Routine 04/09/2025 2:25 PM CDT Metabolic dysfunction-associate d steatohepatitis (MASH) URINALYSIS AND REFLEX TO MICROSCOPIC Routine 04/09/2025 2:25 PM CDT Metabolic dysfunction-associate d steatohepatitis (MASH) PROTIME-INR Routine 04/09/2025 2:25 PM CDT Metabolic dysfunction-associate d steatohepatitis (MASH) COMPREHENSIVE METABOLIC PANEL Routine 04/09/2025 2:25 PM CDT Metabolic dysfunction-associate d steatohepatitis (MASH) CT CHEST WO CONTRAST Schedule Routine, Read Routine (OP Routine) 03/24/2025 10:22 AM CDT Lung nodule MRI ABDOMEN LIVER W WO CONTRAST Schedule Routine, Read Routine (OP Routine) 03/24/2025 9:04 AM CDT 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 Abnormal liver diagnostic imaging SCAN - LABS 03/05/2025 POCT GLUCOSE Routine 02/19/2025 2:38 PM CDT Type 2 diabetes mellitus with stage 3a chronic kidney disease, unspecified whether prison insulin use (HCC) HLA ANTIBODY SCREEN BY PRA OR SAB PER SCHEDULE (CLASS I AND CLASS II) Routine 02/17/2025 10:00 AM CDT ESRD (end stage renal disease) (HCC) EGFR Routine 02/10/2025 2:13 PM CDT 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 COMPREHENSIVE METABOLIC PANEL Routine 02/10/2025 2:13 PM CDT Liver cirrhosis [...] cirrhosis type (HCC) COMPREHENSIVE METABOLIC PANEL Routine 01/11/2025 1:08 PM CDT Cirrhosis of liver without ascites, unspecified hepatic cirrhosis type (HCC) PROTIME-INR Routine 01/11/2025 1:08 PM CDT Cirrhosis of liver without ascites, unspecified hepatic cirrhosis type (HCC) HEMOGLOBIN A1C Routine 11/25/2024 9:40 AM CDT Type 2 diabetes mellitus with stage 3a chronic kidney disease, with long-term current use of insulin (HCC) PAP AND HIGH RISK HPV, REFLEX TO GENOTYPING Routine 04/28/2024 10:41 AM CDT SCREENING MAMMOGRAM BILATERAL W PAL IP Routine 04/27/2024 1:55 PM CDT LIPID PANEL Routine 04/22/2024 12:58 AM CDT HEPATITIS C ANTIBODY Routine 06/16/2023 6:09 AM MANAGER STATISTICAL COLONOSCOPY 05/30/2022 9:28 AM CDT ALBUMIN CREATININE RATIO, URINE Routine 03/01/2021 2:45 PM CDT Type 2 diabetes mellitus without complication, unspecified whether prison insulin use (HCC) from Last 3 Months or Most Recently Relevant to Health Maintenance Results * (ABNORMAL) eGFR (04/09/2025 2:25 PM CDT) eGFR 29(L) >=60 mL/min/1. 73 m2 Comment: Interpretive Data [...] interpretive data was last reviewed 2021. Blood 04/09/2025 2:25 PM CDT 04/09/2025 6:28 PM CDT us Rebecca Calloway MD LAB BLOOD ORDERABLES Fi nal Result [facility] [address] [facility] Department [place] [address] * (ABNORMAL) Urinalysis reflex to microscopic (04/09/2025 2:25 PM CDT) Color, ur Yellow Yellow Clarity, ur Clear Clear [facility] Specific gravity, ur 1.009 1.003 - 1.030 [facility] pH, urine 6.5 [facility] Comment: Interpretive Data U rine pH is affected by diet, medications, systemic acid-base disturbances, and renal tubular function. pH may affect urinary stone formation. For example, urine pH below 6.0 may help reduce the tendency for calcium phosphate stones and pH greater than 6.0 may reduce the tendency for uric acid stone formation. Source: [facility] Current Interpretive Data was last revised on 2017 Protein, ur ql Negative Negative [facility] Glucose, ur ql Negative Negative [facility] Ketones, ur Negative Negative [facility] Bilirubin, ur Negative Negative [facility] Blood, ur Negative Negative [facility] Urobilinogen, ur <2.0 <2.0 mg/dL [facility] Nitrite, ur Negative Negative [facility] Leukocyte esterase, ur 1+(A) Negative [facility] UA reflex comment Reflex to microscopic UA will be performed. [facility] Urine 04/09/2025 2:25 PM CDT 04/09/2025 6:28 PM CDT us Rebecca Calloway MD LAB URINE ORDERABLES Fi nal Result [place] [id number] [facility] Department [place] [address] * (ABNORMAL) Urinalysis, microscopic only (04/09/2025 2:25 PM CDT) WBC, ur 0-5 0 - 5 /HPF RBC, ur 0-2 0 - 2 /HPF [facility] Epithelial cells, squamous, ur 1-5 0 - 5 /HPF [facility] Bacteria, ur Trace(A) [facility] Mucous, ur Present(A) [facility] Hyaline casts, ur 1-5 0 - 10 /LPF [facility] Urine 04/09/2025 2:25 PM CDT 04/09/2025 6:28 PM CDT Rebecca Calloway MD LAB URINE ORDERABLES Fi nal Result Performing Organization Address [facility] de Phone Number [address] [place] [address] * (ABNORMAL) Protime-INR (04/09/2025 2:25 PM CDT) [facility] PT 16.50(H) 12.00 - 14.60 sec INR 1.31(H) 0.90 - 1.20 [facility] Comment: Interpretive data Oral anticoagulant therapeutic ranges: Venous thromboembolism prophylaxis or treatment: 2.0-3.0 CARDIOLOGY Standard range: 2.0-3.0 High-intensity range: 2.5-3.5 Refer to indication-specific guidelines for appropriate target ranges for prosthetic heart valve replacement. Current interpretive data was last revised on 2019. Blood 04/09/2025 2:25 PM CDT 04/09/2025 6:28 PM CDT Rebecac Calloway MD LAB BLOOD ORDERABLES Fi nal Result Performing Organization Address [facility] Co de Phone Number [address] [place] [address] * (ABNORMAL) Comprehensive metabolic panel (04/09/2025 2:25 PM CDT) [facility] Sodium 133(L) 135 - 145 mmol/L Potassium, pl 3.5 3.3 - 4.9 mmol/L [facility] Chloride 95(L) 97 - 110 mmol/L [facility] CO2 27 22 - 32 mmol/L [facility] Anion gap 11 2 - 15 mmol/L [facility] BUN 34(H) 6 - 25 mg/dL [facility] Creatinine 1.88(H) 0.60 - 1.10 mg/dL [facility] Glucose 222(H) 70 - 199 mg/dL [facility] Comment: Interpretive Data Fasting glucose >/= 126 [...] interpretive data was last revised 2022. Calcium 9.1 8.5 - 10.3 mg/dL [facility] Bilirubin, total 2.3(H) 0.1 - 1.2 mg/dL [facility] Protein, pl 6.2(L) 6.5 - 8.5 g/dL [facility] Albumin 3.2(L) 3.5 - 5.0 g/dL [facility] Alk phos 96 40 - 130 Units/L [facility] ALT 22 7 - 45 Units/L [facility] AST 39 10 - 45 Units/L [facility] Blood 04/09/2025 2:25 PM CDT 04/09/2025 6:28 PM CDT us Rebecca Calloway MD LAB BLOOD ORDERABLES Fi nal Result CHARISSA ESCOBAR [address] [facility] Department [place] [address] * CT Chest WO Contrast (03/24/2025 10:22 AM CDT) Anatomical Region Laterality Modality Body N/A Computed Tomogra phy 03/24/2025 11:2 4 AM CDT Impressions 03/24/2025 5:07 PM CDT Unchanged right lower lobe and left upper lobe pulmonary nodules. No new or enlarging pulmonary nodules. Dictated by: Niecy Schultz M.D. The radiology attending physician has personally reviewed this study, and had reviewed and/or edited this written report and agrees with it. Electronically signed by: Aristides Bautista M.D., Ph.D Narrative 03/24/2025 5:07 PM CDT EXAMINATION: Computed tomography of the chest without intravenous contrast HISTORY: Lung nodule follow-up TECHNIQUE: Transaxial computed tomographic images of the chest were obtained without intravenous contrast according to the standard protocol. COMPARISON: Multiple priors with the most recent on 04/15/2024 FINDINGS: The previously seen right lower lobe nodule measures 1.5 mm and is unchanged from the prior exam and is best seen on series 3 image 105. The previously noted left upper lobe nodule is also unchanged and measures 3.0 mm and is best seen on series 3 image 68. No new or enlarging pulmonary nodules. No pleural effusion or pneumothorax. Heart size is within normal limits. No pericardial effusion. Mitral annular calcifications present. The thoracic artery and pulmonary artery of normal caliber. Thoracic artery calcifications present. No mediastinal, hilar, supraclavicular, or axillary lymphadenopathy. The imaged thyroid is unremarkable. The imaged upper abdomen is significant for a large cyst at the hepatic dome which appears similar to prior exams. Unchanged splenomegaly. Fracture deformity of the right shoulder that appears chronic. Unchanged thoracic spine compression deformities. Procedure Note Aristides Bautista MD PhD - 03/24/2025 EXAMINATION: Computed tomography of the chest without intravenous contrast HISTORY: Lung nodule follow-up TECHNIQUE: Transaxial computed tomographic images of the chest were obtained without intravenous contrast according to the standard protocol. COMPARISON: Multiple priors with the most recent on 04/15/2024 FINDINGS: The previously seen right lower lobe nodule measures 1.5 mm and is unchanged from the prior exam and is best seen on series 3 image 105. The previously noted left upper lobe nodule is also unchanged and measures 3.0 mm and is best seen on series 3 image 68. No new or enlarging pulmonary nodules. No pleural effusion or pneumothorax. Heart size is within normal limits. No pericardial effusion. Mitral annular calcifications present. The thoracic artery and pulmonary artery of normal caliber. Thoracic artery calcifications present. No mediastinal, hilar, supraclavicular, or axillary lymphadenopathy. The imaged thyroid is unremarkable. The imaged upper abdomen is significant for a large cyst at the hepatic dome which appears similar to prior exams. Unchanged splenomegaly. Fracture deformity of the right shoulder that appears chronic. Unchanged thoracic spine compression deformities. IMPRESSION: Unchanged right lower lobe and left upper lobe pulmonary nodules. No new or enlarging pulmonary nodules. Dictated by: Niecy Kyin, M.D. The radiology attending physician has personally reviewed this study, and had reviewed and/or edited this written report and agrees with it. Electronically signed by: Aristides Bautista M.D., Ph.D us Taiwo Vázquez MD IMG CT PROCEDURES Final Result * MRI Abdomen Liver W WO Contrast (03/24/2025 9:04 AM CDT) Anatomical Region Laterality Modality Body N/A Magnetic Resonan ce 03/24/2025 11:1 8 AM CDT Impressions 03/24/2025 11:40 AM CDT Findings of cirrhosis and portal hypertension with no suspicious hepatic lesion. Dictated by: Michi Cullen MD The radiology attending physician has personally reviewed this study, and had reviewed and/or edited this written report and agrees with it. Electronically signed by: Nessa Dodson M.D. Narrative 03/24/2025 11:40 AM CDT EXAMINATION: MAGNETIC RESONANCE IMAGING OF THE ABDOMEN WITH AND WITHOUT CONTRAST HISTORY: Cirrhosis, HCC screening TECHNIQUE: Magnetic resonance imaging of the abdomen was performed prior to and following the uneventful administration of intravenous contrast. Protocol: Liver Contrast: Dotarem (gadoterate) 20 mL COMPARISON: MRI from 04/15/2024 FINDINGS: Liver: Cirrhotic liver morphology. No significant fat or iron deposition. - Bile ducts: No biliary ductal dilation. - Focal liver lesions: Scattered hepatic cysts. No suspicious hepatic lesion. - Vasculature: Unchanged diminutive caliber of the portal veins, particularly the main portal vein near the hepatic hilum and reflect sequela of prior thrombus. Hepatic veins are patent. Unchanged large splenorenal shunt. Gallbladder: Cholelithiasis. Pancreas: Normal Spleen: Unchanged mild splenomegaly Adrenals: Normal Kidneys: Normal Other Findings: Right lower lobe nodules better evaluated on same day CT. No suspicious osseous lesion. No ascites. Abdominal aorta is normal in caliber. No lymphadenopathy. Procedure Note Nessa Dodson MD - 03/24/2025 EXAMINATION: MAGNETIC RESONANCE IMAGING OF THE ABDOMEN WITH AND WITHOUT CONTRAST HISTORY: Cirrhosis, HCC screening TECHNIQUE: Magnetic resonance imaging of the abdomen was performed prior to and following the uneventful administration of intravenous contrast. Protocol: Liver Contrast: Dotarem (gadoterate) 20 mL COMPARISON: MRI from 04/15/2024 FINDINGS: Liver: Cirrhotic liver morphology. No significant fat or iron deposition. - Bile ducts: No biliary ductal dilation. - Focal liver lesions: Scattered hepatic cysts. No suspicious hepatic lesion. - Vasculature: Unchanged diminutive caliber of the portal veins, particularly the main portal vein near the hepatic hilum and reflect sequela of prior thrombus. Hepatic veins are patent. Unchanged large splenorenal shunt. Gallbladder: Cholelithiasis. Pancreas: Normal Spleen: Unchanged mild splenomegaly Adrenals: Normal Kidneys: Normal Other Findings: Right lower lobe nodules better evaluated on same day CT. No suspicious osseous lesion. No ascites. Abdominal aorta is normal in caliber. No lymphadenopathy. IMPRESSION: Findings of cirrhosis and portal hypertension with no suspicious hepatic lesion. Dictated by: Michi Cullen MD The radiology attending physician has personally reviewed this study, and had reviewed and/or edited this written report and agrees with it. Electronically signed by: Nessa Dodson M.D. Taiwo Vázquez MD IMG MRI PROCEDURES Final Result * SCAN - LABS (03/05/2025) Provider Scanning Final Result * POCT glucose (02/19/2025 2:38 PM CDT) [facility] Glucose Blood, POC 153 Normal Fasting 70 - 100, Random <200 mg/dL Blood 02/19/2025 2:38 PM CDT Marian Kennedy MD PhD POINT OF CARE TEST ORDERA BLES Final Result * HLA Antibody Screen by PRA or SAB per Schedule (Class I and Class II) (02/17/2025 10:00 AM CDT) Blood 02/17/2025 10:0 0 AM CDT Narrative HISTOTRAC - MANAGER STATISTICAL Sample received in lab and stored. No [...] ORDERABLES Fin al Result Performing Organization Address City/[facility]/ZIP Co de Phone Number [facility] Department [place] [address] * (ABNORMAL) Protime-INR (02/10/2025 2:13 PM CDT) PT 14.8(H) 9.7 - 13.0 sec INR 1.36(H) 0.90 - 1.20 [facility] Comment: Interpretive data Oral anticoagulant therapeutic ranges: Venous thromboembolism prophylaxis or treatment: 2.0-3.0 CARDIOLOGY Standard range: 2.0-3.0 High-intensity range: 2.5-3.5 Refer to indication-specific guidelines for appropriate target ranges for prosthetic heart valve replacement. Current interpretive data was last revised on 2019. Blood 02/10/2025 2:13 PM CDT 02/10/2025 2:55 PM CDT us Taiwo Vázquez MD LAB BLOOD ORDERABLES Fin al Result [facility] Department [place] [address] * (ABNORMAL) Comprehensive metabolic panel (02/10/2025 2:13 PM CDT) Sodium 142 135 - 145 mmol/L Potassium, pl 3.9 3.3 - 4.9 mmol/L [facility] Chloride 105 97 - 110 mmol/L [facility] CO2 31 22 - 32 mmol/L [facility] Anion gap 6 2 - 15 mmol/L [facility] BUN 16 6 - 25 mg/dL [facility] Creatinine 1.68(H) 0.60 - 1.10 mg/dL [facility] Glucose 119 70 - 199 mg/dL [facility] Comment: Interpretive Data Fasting glucose >/= [...] Calcium 8.8 8.5 - 10.3 mg/dL [facility] Bilirubin, total 1.6(H) 0.1 - 1.2 mg/dL [facility] Protein, pl 5.9(L) 6.5 - 8.5 g/dL [facility] Albumin 3.2(L) 3.5 - 5.0 g/dL [facility] Alk phos 99 40 - 130 Units/L [facility] ALT 20 7 - 45 Units/L [facility] AST 38 10 - 45 Units/L [facility] Blood 02/10/2025 2:13 PM CDT 02/10/2025 3:03 PM CDT Taiwo Vázquez MD LAB BLOOD ORDERABLES Fin al Result [facility] Department [place] [address] * HLA Antibody Screen by PRA or SAB per Schedule (Class I and Class II) (01/20/2025 10:00 AM CDT) Blood 01/20/2025 10:0 0 AM CDT Narrative HISTOTRAC - MANAGER STATISTICAL Sample received in lab. Single Antigen Antibody [...] a method developed and validated by the [facility] HLA laboratory based on an FDA-approved IVD kit (P[employer]ze[employer]™creen Single-Antigen, [employer], [place], [place]). All patient serum samples are pretreated with EDTA before the screen to prevent complement interference. Additional serum treatments, such as adsorption and DTT treatment, may be performed as indicated. Interpretive comments: Low risk: MFI [id number]. Moderate risk: MFI [id number]. Increased risk: MFI >/= 5000. The presence [...] antigens to avoid. Testing performed at the [facility], [address] [place] [address], 5th floor, [place], [address]. CLIA # [id number]. Rani Smith, Ph.D., Gasoline Tester, HLA Laboratory Aurelio Palafox M.D., Ph.D., Rn Rehab, HLA Laboratory Norma Gronowski, Ph.D., CLIA Rn Rehab, [facility] Current methodology and interpretive comments last revised on 09/06/2022. Timothy Pardo MD LAB BLOOD ORDERABL ES Final Result Performing Organization Address [facility]/ZIP Co de Phone Number HISTOTRAC * (ABNORMAL) eGFR (01/11/2025 1:08 PM [...] BLOOD ORDERABLES Final Result Performing Organization Address City/[facility]/ZIP Co de Phone Number CHARISSA DUNNE [facility] Department [place] [address] * (ABNORMAL) Protime-INR (01/11/2025 1:08 PM CDT) [...] Charles MD LAB BLOOD ORDERABLES Final Result [facility] [place] [address] * (ABNORMAL) Comprehensive metabolic panel (01/11/2025 1:08 PM CDT) Sodium 141 135 - 145 mmol/L Potassium, pl 3.6 3.3 - 4.9 mmol/L [facility] Chloride 105 97 - 110 mmol/L [facility] CO2 29 22 - 32 mmol/L [facility] Anion gap 7 2 - 15 mmol/L [facility] BUN 17 6 - 25 mg/dL [facility] Creatinine 1.56(H) 0.60 - 1.10 mg/dL [facility] Glucose 150 70 - 199 mg/dL [facility] Comment: Interpretive Data Fasting glucose >/= [...] Calcium 8.7 8.5 - 10.3 mg/dL [facility] Bilirubin, total 1.9(H) 0.1 - 1.2 mg/dL [facility] Protein, pl 6.4(L) 6.5 - 8.5 g/dL [facility] Albumin 3.2(L) 3.5 - 5.0 g/dL [facility] Alk phos 97 40 - 130 Units/L [facility] ALT 17 7 - 45 Units/L [facility] AST 32 10 - 45 Units/L [facility] Blood 01/11/2025 1:08 PM CDT 01/11/2025 1:45 PM CDT Molina Charles MD LAB BLOOD ORDERABLES Final Result Performing Organization Address [facility] de Phone Number [facility] [place] [address] * Hemoglobin A1c (11/25/2024 9:40 AM CDT) Hgb A1C 5.5 4.0 - 5.6 % Estimated Average Glucose 111 mg/dL [facility] Comment: The ADA recommends reporting an [...] ORDERABLES Fin al Result Performing Organization Address [facility] Co de Phone Number [facility] Department [place] [address] * Pap and High Risk HPV and Genotyping (Cytology Component) (04/28/2024 10:41 AM CDT) Thin prep (Pap test) 04/28/2024 10:41 AM CDT 04/28/2024 1:00 PM CDT Narrative PATHOLOGY [facility] - 05/04/2024 4:21 PM CDT EPIC results best viewed via link to PDF [facility] Chelsea Cronin [facility] [place] [address] Note to Patients: This report may contain [...] Gender: Michelle : 1960 (Age: 63) Address: [address] [place], [place] [id number] Hospital #: [id number] Service: Medical Location: [place] [address] Patient Type: [facility] Inpatient Taken: 04/28/2024 Received: 04/28/2024 Accessioned: [...] this test have been verified by the [facility] Molecular Infectious Disease laboratory. Correlate with reported cytology results, as applicable. Interpretive data last revised 23 jhosie/05/04/2024 16:21 JEANNIE Worthington([facility]) Report Electronically Reviewed and Signed Out By JEANNIE Worthington([facility]) 05/04/2024 16:21:37 Cervicovaginal Cytology (Pap Test) Disclaimer: The Pap test is a screening test used to detect cervical cancer and its precursors; it is not a diagnostic procedure. False negative and false positive results do occur. Pap test results should be interpreted in the context of pertinent clinical information and biopsy results as indicated. [facility] Clinical Laboratory Improvement Amendments (CLIA) mandate that cytologic and histologic results be correlated for laboratory air quality manager & improvement standards. FOR ALL [...] determined by the Surgical Pathology Department at [facility] as part of an ongoing quality improvement coordinator (rn) program and in compliance with federally mandated [...] determined by the Surgical Pathology Department of [facility]. It has not been cleared or approved by the U. S. Food and Drug Administration. us Eladio Carey MD LAB CYTOLOGY ORDERABLES Final Result PATHOLOGY [facility] 3rd Floor [place], [place] [phone] * Screening Mammogram Bilateral W Pal (04/27/2024 1:55 PM CDT) Anatomical Region Laterality Modality Breast Bilateral Mammography Narrative 04/27/2024 1:52 PM CDT Mammogram Technique: Bilateral Digital Breast Tomosynthesis, Bilateral C-view 2D Screening mammogram. Views obtained: bilateral craniocaudal and bilateral mediolateral oblique. Computer Aided Detection was performed. Mammogram Findings: The present examination has been compared to prior imaging studies performed at [facility] on 05/15/2021 and 12/06/2021. There are [...] compared to prior imaging studies performed at [facility] on 05/15/2021 and 12/06/2021. There are [...] on 2018. Triglycerides 43 <=149 mg/dL [facility] Comment: Interpretive Data Ages < or [...] on 2018. HDL 64 >=40 mg/dL [facility] Comment: Interpretive Data Ages < or [...] 2018. LDL, calculated 47 <=129 mg/dL [facility] Comment: Interpretive Data Ages < or [...] revised on 2024. Non-HDL Cholesterol 58 mg/dL [facility] Comment: Interpretive Data Ages < or [...] revised on 2018. Chol/HDL ratio 2 [facility] Blood 04/22/2024 12:5 8 AM CDT 04/22/2024 3:00 AM CDT us John Paul Reddy MD LAB BLOOD ORDERABLES Final Resul t Performing Organization Address [facility]/State/ZIP Co de Phone Number [facility] [place] [address] * Hepatitis C antibody Blood (06/16/2023 6:09 AM MANAGER STATISTICAL) Hep C Ab Nonreactive Nonreactive [facility] Comment:Antibodies to HCV no t detected. Does NOT exclude the possibility of recent exposure to HCV. Current interpretive data was last revised on 22 Blood 06/16/2023 6:09 AM MANAGER STATISTICAL 06/16/2023 6:35 AM MANAGER STATISTICAL us Alejandro Frazier MD LAB MICROBIOLOGY - GENERAL ORDERABLES Final Result [facility] [place] [address] * COLONOSCOPY (05/30/2022 9:28 AM CDT) Anatomical Region Laterality Modality Other Narrative Procedure Note Pat Robins MD - 05/30/2022 9:28 AM CDT GI ENDOSCOPY [facility] Patient Name: Aleah Levine Procedure Date: 05/30/2022 9:28 AM Date of : 1960 Admit Type: Outpatient Age: 61 Gender: Female Attending MD: Pat Robins M.D. Room: [facility] ENDOSCOPY ROOM 3 Note Status: [...] The scope was passed under direct vision.The [facility] [id number] endoscope was introducedthrough the anus and [...] procedure. Electronically signed by Pat Robins MD aPt Robins M.D. 05/30/2022 10:31:01 AM . Number of Addenda: 0 Note Initiated On: 05/30/2022 9:28 AM Recognized by the [employer] for promoting quality in endoscopy us Pat Robins MD ENDOSCOPY PROCEDURES Ju l Result * Albumin Creatinine Ratio, Urine (03/01/2021 2:45 PM CDT) Albumin Ur <12.0 mg/L [facility] Comment: Interpretive Data No reference range established. Current interpretive data was last revised 2018. Creatinine Ur 59.5 mg/dL [facility] Comment: Interpretive Data No reference range established. Current interpretive data was last revised 2018. Albumin Creatinine Ratio, Ur <20 1 - 29 mg/g [facility] Urine 03/01/2021 2:45 PM CDT 03/01/2021 3:41 PM CDT Oly Baker MD LAB URINE ORDER RAVEN Final Result [facility] [place] [address] from Last 3 Months or Most Recently Relevant to Health Maintenance Insurance [facility] EPO BLUE ACCESS [place] [facility] BLUE ACCESS [facility] Member Subscriber Plan / Payer ( fective 2021-Present) Name:Aleah Levine Relation to Subscriber:Self Name:Aleah Levine Payer ID:[id number] (NAIC) Type:NodeFly Address: [id number] [facility] HMO/PPO Address: [address] [address] [place] [address] [employer] [facility] MEDICARE ADVANTAGE [facility] MEDICARE Address: [address] [address] [place] [address] [employer] RISK Advance Directives For more information, please contact: [phone] * Full Code (Latest Code Status on [...] 8:35 AM 02/05/2023 7:30 PM Care Teams Nutrition Worker Relationship Specialty Start Date End Date Maddy Romano MD [address] [place] [address] PCP - General 09/28/16 Manas Ibarra MD [address] [place] [address] Referring Physician Thoracic Surgery 11/05/18 Zion Barton MD [address] [place] [address] Radiation Oncologist Radiation Oncology 05/05/19 Molina Charles MD [address] [facility] [address] [place] [address] Referring Physician Transplant Hepatology 12/15/20 Karuna Maria OT Occupational Therapist Occupational Therapy 09/20/22 Renu Treviño NP [address] [facility] [address] [place] [address] Nurse Practitioner Radiation Oncology 11/08/22 Eladio Mcrae MD [address] [place], [place] [id number] Referring Physician Obstetrics and Gynecology 11/15/22 Marcy Schroeder, RN [address] [place] [address] Paper Winder 04/27/24 Chelsea Barker, machine maintenance servicerPaper Winder 11/13/24
--- OUTSIDE RECORDS SUMMARY | 2025-04-13 11:40 | XMS_ITS | Encounter Summary ---
Author Organization [facility] Address [address] [place] [address] Care Team Providers Care Keyseater Operator Name Role Phone Maddy Romano MD Primary Care Provider [phone] Manas Ibarra MD Unavailable Zion Barton MD Unavailable Molina Charles MD Unavailable [phone] Karuna Maria OT Unavailable Unavaila Renu Paul NP Unavailable [phone] Eladio Mcrae MD Unavailable [phone] Marcy Schroeder RN Unavailable [phone] Chelsea Barker RN Unavailable Unavail able Encounter Details Date Type Department Care Team (Late st Contact Info) Description 04/13/2025 Telephone [facility] Transplant Liver [address] [facility] [address] [phone] [place] [address] Celsa Vargas Social History Tobacco Use Types Packs/Day Years Used Date Smoking Tobacco: Former Cigarettes 0.5 51 1 - 2020 Smokeless Tobacco: Never [facility] Utilities Answer Date Recorded In the past [...] often do you attend chur ch or zoroastrian services? Never 10/05/2024 Do you belong to any clubs o r organizations such as latter day groups, unions, fraternal or athletic groups, or [...] place to sleep or slept in a residential (including now)? No 12/31/2022 Housing Stability Vital [...] were you homeless or living in a residential (including now)? No 10/05/2024 Personal Safety Answer Date Recorded Have you ever been in or are you currently in a harmful physical or emotional relationship or is someone making you feel afraid or unsafe? 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 of this encounter Miscellaneous Notes * Telephone Encounter - Celsa Vargas - 04/13/2025 9:46 AM CDT Please mail appt letter documented in this encounter Plan of Treatment Scheduled Procedures Name Priority Associated Diagnoses Date/Ti me COLONOSCOPY Routine adult health maintenance LYONS (nonalcoholic steatohepatitis) documented as of this encounter Visit Diagnoses Not on filedocumented in this encounter Care Teams Keyseater Operator Relationship Specialty Start Date End Date Maddy Romano MD [address] [place] [address] PCP - General 09/28/16 Manas Ibarra MD [address] [place] [address] Referring Physician Thoracic Surgery 11/05/18 Zion Barton MD [address] [place], [place] [address] Radiation Oncologist Radiation Oncology 05/05/19 Molina Charles MD 1 [facility] [address] [place] [address] Referring Physician Transplant Hepatology 12/15/20 Karuna Maria, OT Occupational Therapist Occupational Therapy 09/20/22 Renu Treviño NP [address] [facility] [address] [place] [address] Nurse Practitioner Radiation Oncology 11/08/22 Eladio Mcrae MD [address] [facility] [address] [place], [place] [address] Referring Physician Obstetrics and Gynecology 11/15/22 Marcy Schroeder, RN [address] [place] [address] Chain Splitter 04/27/24 Chelsea Barker, emergency care techChain Splitter 11/13/24 documented as of this encounter
--- OUTSIDE RECORDS SUMMARY | 2025-04-13 11:40 | XMS_ITS | Encounter Summary ---
Author Organization [employer] Address [address] [place] [address] Care Team Providers Care Credentialing Coordinator Name Role Phone Unavailable Primary Care Provider Unavailabl e Reason for Visit * Reason Onset Date Comments TR on CKD 04/02/2024 Spoke w/Dr. Mueller Stroke/CVA 04/02/2024 Spoke w/Gladys @ Dr. Anthony's exchange Encounter Details Date Type Department Care Team (Late st Contact Info) Description 04/02/2024 Telephone [facility] Emergency [address] [place] [address] [place] [id number] [place] [address] TR on CKD (Spoke w/Dr. Mueller); [...]
--- OUTSIDE RECORDS SUMMARY | 2025-04-13 11:40 | XMS_ITS | Encounter Summary ---
Author Organization [facility] Address [address] [place] [address] Phone Care Team Providers Care Transportation Dispatch Manager Name Role Phone Maddy Romano MD Primary Care Provider Astrid Haq NP Unavailable [phone] Manas Ibarra MD Unavailable Zion Barton MD Unavailable [phone] Molina Charles MD Unavailable [phone] Inés Lemus RN Unavailable [phone] Karuna Maria OT Unavailable Unavaila Renu Paul NP Unavailable Eladio Mcrae MD Unavailable [phone] Marcy Schroeder RN Unavailable [phone] Briana Poe RN Unavailable Marina Le [...] on file Legal Sex Female 8:22 AM CERTIFIED ORTHOPTIST Gender Identity Female 11/15/2021 2:30 AM CDT [...] COVID: Suspected 09/24/2024 09/24/2024 09/24/2024 3:13 PM CERTIFIED ORTHOPTIST documented as of this encounter Care Teams Transportation Dispatch Manager Relationship Specialty Start Date End Date Maddy Romano MD [address] [place] [address] PCP - General 09/28/16 Astrid Haq NP [address] [place] [address] Nurse Practitioner Radiation Oncology 11/05/18 11/07/22 Manas Ibarra MD [address] [place] [address] Referring Physician Thoracic Surgery 11/05/18 Zion Barton MD [address] [place] [address] Radiation Oncologist Radiation Oncology 05/05/19 Molina Charles MD 1 [facility] [address] [place] [address] Referring Physician Transplant Hepatology 12/15/20 Inés Lemus RN 45[address] [facility] [address] [place] [address] Photovoltaic Solar Cell Designer 10/31/21 5 Karuna Maria, OT Occupational Therapist Occupational Therapy 09/20/22 Renu Treviño NP [address] [facility] [address] [place], [place] [address] Nurse Practitioner Radiation Oncology 11/08/22 Eladio Mcrae MD [address] [place], [place] [address] Referring Physician Obstetrics and Gynecology 11/15/22 Marcy Schroeder, RN [address] [place] [address] Photovoltaic Solar Cell Designer 04/27/24 Briana Poe RN 45[address] [facility] [address] [place] [address] SHOP Outpatient Medical Dosimetrist 04/30/24 05/28/24 Marina Le RN [address] [facility] [address] [place] [address] SHOP Outpatient Medical Dosimetrist 10/05/24 10/26/24 Chelsea Barker, peanut sorterPhotovoltaic Solar Cell Designer 11/13/24 documented as of this encounter
--- OUTSIDE RECORDS SUMMARY | 2025-04-13 11:40 | XMS_ITS | Encounter Summary ---
Author Organization [facility] Address [address] [place] [address] Phone Care Team Providers Care Dress Marker Name Role Phone Maddy Romano MD Primary Care Provider Astrid Haq NP Unavailable Manas Ibarra MD Unavailable Zion Barton MD Unavailable Molina Charles MD Unavailable [phone] Inés Lemus RN Unavailable [phone] Karuna Maria OT Unavailable Unavaila Renu Paul NP Unavailable Eladio Mcrae MD Unavailable [phone] Marcy Schroeder RN Unavailable [phone] Briana Poe RN Unavailable [phone] Marina Le RN Unavailable Chelsea Barker RN [...] on file Legal Sex Female 8:22 AM PHARMACOVIGILANCE SPECIALIST Gender Identity Female 11/15/2021 2:30 AM [...] COVID: Suspected 09/24/2024 09/24/2024 09/24/2024 3:13 PM PHARMACOVIGILANCE SPECIALIST documented as of this encounter Care Teams Dress Marker Relationship Specialty Start Date End Date Maddy Romano MD [address] [place] [address] PCP - General 09/28/16 Astrid Haq NP [address] [place], [place] [address] Nurse Practitioner Radiation Oncology 11/05/18 11/07/22 Manas Ibarra MD [address] [place], [place] [address] Referring Physician Thoracic Surgery 11/05/18 Zion Barton MD [address] [place], [place] [address] Radiation Oncologist Radiation Oncology 05/05/19 Molina Charles MD [address] [facility] [address] [place] [address] Referring Physician Transplant Hepatology 12/15/20 Inés Lemus, TYRA [address] [facility] [address] [place] [address] Pipe Roller 10/31/21 5 Karuna Maria OT Occupational Therapist Occupational Therapy 09/20/22 Renu Treviño NP 49[address] [facility] [address] [place] [address] Nurse Practitioner Radiation Oncology 11/08/22 Eladio Mcrae MD [address] [place] [address] Referring Physician Obstetrics and Gynecology 11/15/22 Marcy Schroeder, RN [address] [place] [address] Pipe Roller 04/27/24 Briana Poe TYRA 4590 [facility] [address] [place] [address] SHOP Outpatient Associate Dean Of Women 04/30/24 05/28/24 Marina Le RN 45[address] [facility] [address] [place] [address] [facility] Outpatient Associate Dean Of Women 10/05/24 10/26/24 Chelsea [place], bowling teacherPipe Roller 11/13/24 documented as of this encounter
--- OUTSIDE RECORDS SUMMARY | 2025-04-13 11:40 | XMS_ITS | Encounter Summary ---
Author Organization [facility] Address [address] [place] [address] Care Team Providers Care Forensic Psychiatrist Name Role Phone Maddy Romano MD Primary Care Provider Astrid Haq NP Unavailable [phone] Manas Ibarra MD Unavailable Zion Barton MD Unavailable [phone] Molina Charles MD Unavailable [phone] Inés Lemus RN Unavailable [phone] Karuna Maria OT Unavailable Unavaila Renu Paul NP Unavailable [phone] Eladio Mcrae MD Unavailable [phone] Marcy Schroeder RN Unavailable [phone] Briana Poe RN Unavailable [phone] Marina Le RN Unavailable [phone] Chelsea Barker RN Unavailable Unavail able Reason for Visit * Reason Onset Date Comments Ready to schedule 04/25/2022 Encounter Details Date Type Department Care Team (Late st Contact Info) Description 04/25/2022 Telephone [facility] Specialty Services [address] [place] [address] Miscellaneous, Not In File Ready to schedule [...] on file Legal Sex Female 8:22 AM SUBWAY REPAIR SUPERVISOR Gender Identity Female 11/15/2021 2:30 AM [...] COVID: Suspected 09/24/2024 09/24/2024 09/24/2024 3:13 PM SUBWAY REPAIR SUPERVISOR documented as of this encounter Care Teams Forensic Psychiatrist Relationship Specialty Start Date End Date Maddy Romano MD [address] [place] [address] PCP - General 09/28/16 Astrid Haq NP [address] [place] [address] Nurse Practitioner Radiation Oncology 11/05/18 11/07/22 Manas Ibarra MD [address] [place] [address] Referring Physician Thoracic Surgery 11/05/18 Zion Barton MD [address] [place] [address] Radiation Oncologist Radiation Oncology 05/05/19 Molina Charles MD 1 [facility] [address] [place] [address] Referring Physician Transplant Hepatology 12/15/20 Inés Lemus, TYRA 4590 [facility] [address] [place] [address] Jet Pilot 10/31/21 5 Karuna Maria, OT Occupational Therapist Occupational Therapy 09/20/22 Renu Treviño NP [address] [facility] [address] [place] [address] Nurse Practitioner Radiation Oncology 11/08/22 Eladio Mcrae MD [address] [place] [address] Referring Physician Obstetrics and Gynecology 11/15/22 Marcy Schroeder RN [address] [place] [address] Jet Pilot 04/27/24 Briana Poe, TYRA [address] [address] SHOP Outpatient Industrial Yard Brake Coupler 04/30/24 05/28/24 Marina Le RN [address] [place] [place] [address] [place] [address] [facility] Outpatient Industrial Yard Brake Coupler 10/05/24 10/26/24 Chelsea Barker, yardage estimatorJet Pilot 11/13/24 documented as of this encounter
--- OUTSIDE RECORDS SUMMARY | 2025-04-13 11:40 | XMS_ITS | Clinical Summary ---
Author Organization [facility] Address [address] [facility] [place] [address] Care Team Providers Care Scientific Specialist Name Role Phone Unavailable Primary Care Provider Unavailabl e Source Comments [facility] [employer],non-owned Affiliates and Associated Physician Practices is amultiple site organization consisting of ambulatory clinics and hospital sitesin [place], [place], [place] and [place]. This disclosure is being madepursuant to the Care Everywhere program and may not contain all information available regarding this patient. Last updated 18.[facility] [employer] Active Problems Problem Noted Date Diagnosed Date Decompensated hepatic cirrhosis 09/24/2024 Hepatic encephalopathy 04/01/2024 Cerebellar infarct 04/01/2024 Social History Tobacco Use Types Packs/Day Years Used Date Smoking Tobacco: Never Assessed Comments Unknown Sex and Gender Information Value Date Recorded Sex Assigned at Not on file Legal Sex Female 8:40 AM MARKETING SUPPORT ASSISTANT Gender Identity Not on file Sexual Orientation [...] patient's age to complete this topic Insurance [facility]
--- OUTSIDE RECORDS SUMMARY | 2025-04-13 11:40 | XMS_ITS | Encounter Summary ---
Author Organization [facility] Address [address] [place] [address] Phone Care Team Providers Care Instructor Ground Services Name Role Phone Maddy Romano MD Primary Care Provider Astrid Haq NP Unavailable Manas Ibarra MD Unavailable Zion Barton MD Unavailable Molina Charles MD Unavailable [phone] Inés Lemus RN Unavailable [phone] Karuna Maria OT Unavailable Unavaila Renu Paul NP Unavailable Eladio Mcrae MD Unavailable Marcy Schroeder RN Unavailable [phone] Briana Poe RN Unavailable Marina Le RN Unavailable [phone] Chelsea Barker RN Unavailable Unavail able Encounter [...] on file Legal Sex Female 8:22 AM DEAF AND HARD OF HEARING TEACHER Gender Identity Female 11/15/2021 2:30 AM [...] COVID: Suspected 09/24/2024 09/24/2024 09/24/2024 3:13 PM DEAF AND HARD OF HEARING TEACHER documented as of this encounter Care Teams Instructor Ground Services Relationship Specialty Start Date End Date Maddy Romano MD [address] [place] [address] PCP - General 09/28/16 Astrid Haq NP [address] [place], [place] [address] Nurse Practitioner Radiation Oncology 11/05/18 11/07/22 Manas Ibarra MD [address] [place], [place] [address] Referring Physician Thoracic Surgery 11/05/18 Zion Barton MD [address] [place], [place] [address] Radiation Oncologist Radiation Oncology 05/05/19 Molina Charles MD 1 [facility] [address] [place] [address] Referring Physician Transplant Hepatology 12/15/20 Inés Lemus, TYRA [address] [facility] [address] [place] [address] Submarine Advisory Team Watch Officer 10/31/21 5 Karuna Maria OT Occupational Therapist Occupational Therapy 09/20/22 Renu Treviño NP 49[address] [facility] [address] [place] [address] Nurse Practitioner Radiation Oncology 11/08/22 Eladio Mcrae MD [address] [place] [address] Referring Physician Obstetrics and Gynecology 11/15/22 Marcy Schroeder, RN [address] [place] [address] Submarine Advisory Team Watch Officer 04/27/24 Briana Poe TYRA 45[address] [facility] [address] [place] [address] SHOP Outpatient Cop Examiner 04/30/24 05/28/24 Marina Le RN 45[address] [facility] [address] [place] [address] [facility] Outpatient Cop Examiner 10/05/24 10/26/24 Chelsea Barker, certified emergency vehicle technicianSubmarine Advisory Team Watch Officer 11/13/24 documented as of this encounter
--- OUTSIDE RECORDS SUMMARY | 2025-04-13 11:40 | XMS_ITS | Encounter Summary ---
Author Organization [facility] Address [address] [place] [address] Phone Care Team Providers Care Director Of Financial Planning Name Role Phone Maddy Romano MD Primary Care Provider Astrid Haq NP Unavailable Manas Ibarra MD Unavailable Zion Barton MD Unavailable Molina Charles MD Unavailable [phone] Inés Lemus RN Unavailable [phone] Karuna Maria OT Unavailable Unavaila Renu Paul NP Unavailable Eladio Mcrae MD Unavailable Marcy Schroeder RN Unavailable [phone] Briana Poe RN Unavailable [phone] Marina Le RN Unavailable Chelsea Barker RN [...] on file Legal Sex Female 8:22 AM TRAIN CONTROL TECHNICIAN Gender Identity Female 11/15/2021 2:30 AM [...] COVID: Suspected 09/24/2024 09/24/2024 09/24/2024 3:13 PM TRAIN CONTROL TECHNICIAN documented as of this encounter Care Teams Director Of Financial Planning Relationship Specialty Start Date End Date Maddy Romano MD [address] [place] [address] PCP - General 09/28/16 Astrid Haq NP [address] [place], [place] [address] Nurse Practitioner Radiation Oncology 11/05/18 11/07/22 Manas Ibarra MD [address] [place], [place] [address] Referring Physician Thoracic Surgery 11/05/18 Zion Barton MD [address] [place], [place] [address] Radiation Oncologist Radiation Oncology 05/05/19 Molina Charles MD 1 [facility] [address] [place] [address] Referring Physician Transplant Hepatology 12/15/20 Inés Lemus, TYRA [address] [facility] [address] [place] [address] Distribution Driver 10/31/21 5 Karuna Maria OT Occupational Therapist Occupational Therapy 09/20/22 Renu Treviño NP [address] [facility] [address] [place] [address] Nurse Practitioner Radiation Oncology 11/08/22 Eladio Mcrae MD [address] [place] [address] Referring Physician Obstetrics and Gynecology 11/15/22 Marcy Schroeder, RN [address] [place] [address] Distribution Driver 04/27/24 Briana Poe TYRA 4590 [facility] [address] [place] [address] SHOP Outpatient Facility Examiner 04/30/24 05/28/24 Marina Le RN [address] [facility] [address] [place] [address] [facility] Outpatient Facility Examiner 10/05/24 10/26/24 Chelsea Barker, optical glass wet inspectorDistribution Driver 11/13/24 documented as of this encounter
--- OUTSIDE RECORDS SUMMARY | 2025-04-13 11:40 | XMS_ITS | Clinical Summary ---
Author Organization [facility] Address [address] [place] [address] Phone Care Team Providers Care Slate Mixer Name Role Phone Unavailable Primary Care Provider Unavailabl e Allergies No known active allergies Medications acetaminophen (TYLENOL) 325 mg tablet Take 325 mg by mouth every 8 hours. Active glucagon (BAQSIMI) 3 mg/spray Dorothy, Non-Aerosol 1 Dorothy. GIVE 1 spray in one NOSTRIL ONE [...] Encounters Date Type Department Care Team Description 03/30/2025 External Device Data [facility] ABSTRACTION Provider, Abstract 03/30/2025 External Device Data [facility] ABSTRACTION Provider, Abstract 02/24/2025 External Device Data [facility] ABSTRACTION Provider, [...] STOOL Negative Negative 04/03/2024 3:27 AM CDT [facility] [employer] [facility] Stool STOOL SPECIMEN / Unknown Collection / Unknown 04/03/2024 1:23 AM CDT 04/03/2024 1:24 AM CDT us Marcos Newton MD BODY FLUIDS AND STOOLS Final R esult [facility] [employer] [facility] CLIA# [id number] [address] [place] [address] * LIPID PANEL (04/03/2024 12:30 AM CDT) CHOLESTEROL 114 <200 mg/dL 04/03/2024 1:34 AM CDT [facility] [employer] [facility] TRIGLYCERIDE 62 <150 mg/dL 04/03/2024 1:34 AM CDT [facility] [employer] [facility] HDL 50 40 - 59 mg/dL 04/03/2024 1:34 AM CDT [facility] [employer] [facility] LDL CALCULATED 52 <100 mg/dL 04/03/2024 1:34 AM CDT [facility] NON-HDL CHOLESTEROL 64 <130 mg/dL 04/03/2024 1:34 AM CDT [facility] Blood Venipuncture / Unknown 04/03/2024 12:30 AM CDT 04/03/2024 1:04 AM CDT [facility] - 04/03/2024 1:34 AM CDT TOTAL [...] Newton MD CHEMISTRY ORDERABLES Final Res ult [facility] [id number] [place] [address] * (ABNORMAL) HEMOGLOBIN A1C (04/02/2024 6:29 PM CDT) HEMOGLOBIN A1C 6.5(H) <=5.6 % 04/02/2024 7:01 PM CDT [facility] [employer] [facility] EST. AVG GLUCOSE, A1C 140 mg/dL 04/02/2024 7:01 PM CDT [facility] Blood Venipuncture / Unknown 04/02/2024 6:29 PM CDT 04/02/2024 6:34 PM CDT Count includes the [facility] - 04/02/2024 7:01 PM CDT HGB A1C INTERPRETATION NORMAL: <5.7% PRE-DIABETES: 5.7 - 6.4% DIABETES: 6.5% OR GREATER us Marcos Newton MD CHEMISTRY ORDERABLES Final Res ult [facility] LABORATORY [facility] CLIA# [id number] [address] [place] [address] from Last 3 Months or Most Recently Relevant to Health Maintenance Insurance Member Subscriber Plan / Payer (Ef fective 2024-Present) Name:Aleah Levine Relation to Subscriber:Self Name:Aleah Levine Payer ID:Not on file Group ID:[id number] Type:RX Medicare Part D Address: [address] Advance Directives For more information, please contact: [phone] * Full Code (Latest Code Status on File) Date Activated Date Inactivated Comments 04/02/2024 6:16 PM 04/06/2024 2:11 PM
--- OUTSIDE RECORDS SUMMARY | 2025-04-13 11:40 | XMS_ITS | Encounter Summary ---
Author Organization [facility] Address [address] [place] [address] Care Team Providers Care Wrestling Coach Name Role Phone Maddy Romano MD Primary Care Provider [phone] Manas Ibarra MD Unavailable Zion Barton MD Unavailable Molina Charles MD Unavailable [phone] Karuna Maria OT Unavailable Unavaila Renu Paul NP Unavailable [phone] Eladio Mcrae MD Unavailable [phone] Marcy Schroeder RN Unavailable [phone] Chelsea Barker RN Unavailable Unavail able Encounter Details Date Type Department Care Team (Late st Contact Info) Description 04/13/2025 Telephone [facility] and [facility] Transplant Liver [address] [facility] [address] [phone] [place] [address] Chelsea Barker, RN Social History Tobacco Use Types Packs/Day Years Used Date Smoking Tobacco: Former Cigarettes 0.5 51 1 970 - 2020 Smokeless Tobacco: Never [facility] Utilities Answer Date Recorded In the past 12 months has th e electric, gas, oil, or water Intigua threatened to shut off services in your [...] attend chur ch or pentecostal services? Never 10/05/2024 Do you belong to any clubs o r organizations such as rastafari groups, unions, fraternal or athletic groups, or [...] any time in the past 12 m [facility], were you homeless or living in a intermediate (including now)? No 10/05/2024 Personal Safety Answer Date Recorded Have you ever been in or are you currently in a harmful physical or emotional relationship or is someone making you feel afraid or unsafe? 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 documented in this encounter Plan of Treatment Scheduled Procedures Name Priority Associated Diagnoses Date/Ti me COLONOSCOPY Routine adult health maintenance LYONS (nonalcoholic steatohepatitis) documented as of this encounter Visit Diagnoses Not on filedocumented in this encounter Care Teams Wrestling Coach Relationship Specialty Start Date End Date Maddy Romano MD [address] [place] [address] PCP - General 09/28/16 Manas Ibarra MD [address] [place] [address] Referring Physician Thoracic Surgery 11/05/18 Zion Barton MD [address] [place] [address] Radiation Oncologist Radiation Oncology 05/05/19 Molina Charles MD 1 [facility] [address] [place] [address] Referring Physician Transplant Hepatology 12/15/20 Karuna Maria, OT Occupational Therapist Occupational Therapy 09/20/22 Renu Treviño NP [address] [facility] [address] [place] [address] Nurse Practitioner Radiation Oncology 11/08/22 Eladio Mcrae MD [address] [place], [place] [address] Referring Physician Obstetrics and Gynecology 11/15/22 Marcy Schroeder, RN [address] [place] [address] Editing Clerk 04/27/24 Chelsea Barker, ingredient scaler helperEditing Clerk 11/13/24 documented as of this encounter
--- OUTSIDE RECORDS SUMMARY | 2025-04-13 11:40 | XMS_ITS | Encounter Summary ---
Author Organization [facility] Address [address] [place] [address] Care Team Providers Care Shake Feeder Name Role Phone Maddy Romano MD Primary Care Provider [phone] Manas Ibarra MD Unavailable Zion Barton MD Unavailable Molina Charles MD Unavailable [phone] Karuna Maria OT Unavailable Unavaila Renu Paul NP Unavailable [phone] Eladio Mcrae MD Unavailable [phone] Marcy Schroeder RN Unavailable [phone] Chelsea Barker RN Unavailable Unavail able Encounter Details Date Type Department Care Team (Late st Contact Info) Description 04/13/2025 Documentation [facility] and [facility] Transplant Liver [address] [facility] [phone] [place] [address] Celsa Vargas Social History Tobacco Use Types Packs/Day Years Used Date Smoking Tobacco: Former Cigarettes 0.5 51 1 - 2020 Smokeless Tobacco: Never [facility] Utilities Answer Date Recorded In the [...] any clubs o r organizations such as uatsdin groups, unions, fraternal or athletic groups, or [...] the past 12 m [facility], were you homeless or living in a [...] on file Legal Sex Female 8:22 AM NOZZLE TENDER Gender Identity Female 11/15/2021 2:30 AM [...] on filedocumented in this encounter Care Teams Shake Feeder Relationship Specialty Start Date End Date Maddy Romano MD [address] [place] [address] PCP - General 09/28/16 Manas Ibarra MD [address] [place] [address] Referring Physician Thoracic Surgery 11/05/18 Zion Barton MD [address] [place], [place] [address] Radiation Oncologist Radiation Oncology 05/05/19 Molina Charles MD [address] [facility] [address] [place] [address] Referring Physician Transplant Hepatology 12/15/20 Karuna Maria, OT Occupational Therapist Occupational Therapy 09/20/22 Renu Treviño NP [address] [facility] [address] [place] [address] Nurse Practitioner Radiation Oncology 11/08/22 Eladio Mcrae MD [address] [place] [address] Referring Physician Obstetrics and Gynecology 11/15/22 Marcy Schroeder, RN [address] [place] [address] Cook Fish Eggs 04/27/24 Chelsea Barker, scorer singleCook Fish Eggs 11/13/24 documented as of this encounter
--- OUTSIDE RECORDS SUMMARY | 2025-04-13 11:40 | XMS_ITS | Encounter Summary ---
Author Organization [facility] Address [address] [place] [address] Phone Care Team Providers Care Chief Design Drafter Name Role Phone Maddy Romano MD Primary Care Provider Astrid Haq NP Unavailable Manas Ibarra MD Unavailable Zion Barton MD Unavailable [phone] Molina Charles MD Unavailable [phone] Inés Lemus RN Unavailable [phone] Karuna Maria OT Unavailable Unavaila Renu Paul NP Unavailable Eladio Mcrae MD Unavailable Marcy Schroeder RN Unavailable [phone] Briana Poe RN Unavailable [phone] Marina Le RN Unavailable Chelsea Barker RN [...] on file Legal Sex Female 8:22 AM STAFFING CONSULTANT Gender Identity Female 11/15/2021 2:30 AM CDT [...] COVID: Suspected 09/24/2024 09/24/2024 09/24/2024 3:13 PM STAFFING CONSULTANT documented as of this encounter Care Teams Chief Design Drafter Relationship Specialty Start Date End Date Maddy Romano MD [address] [place] [address] PCP - General 09/28/16 Astrid Haq NP [address] [place] [address] Nurse Practitioner Radiation Oncology 11/05/18 11/07/22 Manas Ibarra MD [address] [place] [address] Referring Physician Thoracic Surgery 11/05/18 Zion Barton MD [address] [place] [address] Radiation Oncologist Radiation Oncology 05/05/19 Molina Charles MD [address] [place] [address] [address] [place] [address] Referring Physician Transplant Hepatology 12/15/20 Inés Lemus, TYRA [address] [facility] [address] [place] [address] Wrister 10/31/21 5 Karuna Maria, OT Occupational Therapist Occupational Therapy 09/20/22 Renu Treviño NP [address] [facility] [address] [place] [address] Nurse Practitioner Radiation Oncology 11/08/22 Eladio Mcrae MD [address] [place] [address] Referring Physician Obstetrics and Gynecology 11/15/22 Marcy Schroeder RN [address] [place] [address] Wrister 04/27/24 Briana Poe, TYRA [address] [address] [facility] Outpatient Preventive Maintenance Engineer 04/30/24 05/28/24 Marina Le RN [address] [address] [facility] Outpatient Preventive Maintenance Engineer 10/05/24 10/26/24 Chelsea Barker, log cookerWrister 11/13/24 documented as of this encounter
--- OUTSIDE RECORDS SUMMARY | 2025-04-13 11:40 | XMS_ITS | Encounter Summary ---
Author Organization [facility] Address [address] [place] [address] Care Team Providers Care Cost Estimator Name Role Phone Maddy Romano MD Primary Care Provider Manas Ibarra MD Unavailable Zion Barton MD Unavailable [place]ina Charles MD Unavailable [phone] Karuna Maria OT Unavailable Unavaila Renu Paul NP Unavailable [phone] Eladio Mcrae MD Unavailable [phone] Marcy Schroeder RN Unavailable [phone] Chelsea Barker RN Unavailable Unavail able Encounter Details Date Type Department Care Team (Latest Contact Info) Description 04/13/2025 Results Follow-Up [facility] and [facility] Transplant Liver [address] [facility] [address] [place] [address] Chelsea Barker, TYRA Comprehensive metabolic panel, Protime-INR, Urinalysis reflex to microscopic, Additional followed-up results: 2 Social History Tobacco Use Types Packs/Day Years Used Date Smoking Tobacco: Former Cigarettes 0.5 51 1 970 - 2020 Smokeless Tobacco: Never [facility] Utilities Answer Date Recorded In the past [...] often do you attend chur ch or caodaism services? Never 10/05/2024 Do you belong to any clubs o r organizations such as spiritism groups, unions, fraternal or athletic groups, or [...] on file Legal Sex Female 8:22 AM ACCOUNTING OFFICER Gender Identity Female 11/15/2021 2:30 AM CDT [...] on filedocumented in this encounter Care Teams Cost Estimator Relationship Specialty Start Date End Date Maddy Romano MD [address] [place], [place] [address] PCP - General 09/28/16 Manas Ibarra MD [address] [place], [place] [address] Referring Physician Thoracic Surgery 11/05/18 Zion Barton MD [address] [place], [place] [address] Radiation Oncologist Radiation Oncology 05/05/19 Molina Charles MD 1 [facility] [address] [place] [address] Referring Physician Transplant Hepatology 12/15/20 Karuna Maria, OT Occupational Therapist Occupational Therapy 09/20/22 Renu Treviño NP [address] [facility] [address] [place] [address] Nurse Practitioner Radiation Oncology 11/08/22 Eladio Mcrae MD [address] [place] [address] Referring Physician Obstetrics and Gynecology 11/15/22 Marcy Schroeder, RN [address] [place], [place] [address] Education Managers 04/27/24 Chelsea Barker, sole layer handEducation Managers 11/13/24 documented as of this encounter
--- NOTE | 2025-04-13 11:41 | PC.NURSE ---
Pt to CT scanner with radiology.
[2025-04-13 11:43] LABS: Hematocrit 34.5 % (35.0-49.0); Hemoglobin 11.6 g/dL (12.0-15.0); Immature Granulocyte Percent A 0.2 % (0.0-0.0); Immature Platelet Fraction Pct 2.3 % (1.0-7.0); Lymphocytes Absolute Auto 1.07 K/mm3 (1.10-4.50); Mean Corpuscular HGB Conc 33.6 g/dL (32-36); Mean Corpuscular Hemoglobin 31.0 pg (27.0-31.0); Mean Corpuscular Volume 92.2 fL (78.0-102.0); Nucleated Red Blood Cells Absolute Auto 0.00 K/mm3 (0.00-0.00); Nucleated Red Blood Cells Perc 0.0 % (0-0.0); Platelet Count Result 68 K/mm3 (150-420); Red Blood Count 3.74 M/mm3 (4.20-5.40); White Blood Count 5.1 K/mm3 (4.8-10.8)
[2025-04-13 11:53] LABS: Ammonia 84 umol/L (9-30)
--- NOTE | 2025-04-13 11:53 | PC.NURSE ---
Pt back in room from CT scanner.
[2025-04-13 11:56] LABS: INR 1.1; Partial Thromboplastin Time 25.3 Sec (23.9-30.70); Prothrombin Time 11.8 Seconds (9.50-12.1)
[2025-04-13 12:00] LABS: Anion Gap 7 mmol/L (4-12); Carbon Dioxide 31 mmol/L (22-30); Chloride 95 mmol/L (98-107); Potassium 3.3 mmol/L (3.4-5.0); Sodium 133 mmol/L (137-145)
[2025-04-13 12:01] LABS: Alanine Aminotransferase 27 U/L (6-35); Aspartate Amino Transferase 42 U/L (14-36); Bilirubin,Total 2.4 mg/dL (0.2-1.3); Blood Urea Nitrogen 38 mg/dL (7-17); Calcium 9.4 mg/dL (8.4-10.2); Creatine Kinase 67 U/L (30-135); Estimated CRCL calculation 37 ml/min; Estimated Glomerular Filt Rate 28; Glucose 204 mg/dL (65-110); Osmolality Calculated 291 mOsm/kg (285-295)
[2025-04-13 12:02] LABS: Albumin Level 3.4 g/dL (3.5-5.1); Alkaline Phosphatase 90 U/L (38-126); Total Protein 6.4 g/dL (6.3-8.2)
--- OUTSIDE RECORDS SUMMARY | 2025-04-13 12:10 | XMS_ITS | Encounter Summary ---
Author Organization [facility] Address [address] [place] [address] Phone Care Team Providers Care Mate First Name Role Phone Maddy Romano MD Primary Care Provider sAtrid Haq NP Unavailable Manas Ibarra MD Unavailable Zion Barton MD Unavailable Molina Charles MD Unavailable [phone] Inés Lemus RN Unavailable [phone] Karuna Maria OT Unavailable Unavaila Renu Paul NP Unavailable Eladio Mcrae MD Unavailable Marcy Schroeder RN Unavailable [phone] Briana Poe RN Unavailable Marina Le RN [...] on file Legal Sex Female 8:22 AM MESSENGER COPY Gender Identity Female 11/15/2021 2:30 AM CDT [...] COVID: Suspected 09/24/2024 09/24/2024 09/24/2024 3:13 PM MESSENGER COPY documented as of this encounter Care Teams Mate First Relationship Specialty Start Date End Date Maddy Romano MD [address] [place] [address] PCP - General 09/28/16 Astrid Haq NP [address] [place], [place] [address] Nurse Practitioner Radiation Oncology 11/05/18 11/07/22 Manas Ibarra MD [address] [place], [place] [address] Referring Physician Thoracic Surgery 11/05/18 Zion Barton MD [address] [place], [place] [address] Radiation Oncologist Radiation Oncology 05/05/19 Molina Charles MD 1 [facility] [address] [place] [address] Referring Physician Transplant Hepatology 12/15/20 Inés Lemus, TYRA [address] [facility] [address] [place] [address] Veneer Sample Maker 10/31/21 5 Karuna Maria OT Occupational Therapist Occupational Therapy 09/20/22 Renu Treviño NP [address] [facility] [address] [place] [address] Nurse Practitioner Radiation Oncology 11/08/22 Eladio Mcrae MD [address] [place] [address] Referring Physician Obstetrics and Gynecology 11/15/22 Marcy Schroeder, RN [address] [place] [address] Veneer Sample Maker 04/27/24 Briana Poe TYRA [address] [facility] [address] [place] [address] SHOP Outpatient Industrial Conveyor Belt Repairer 04/30/24 05/28/24 Marina Le RN [address] [facility] [address] [place] [address] [facility] Outpatient Industrial Conveyor Belt Repairer 10/05/24 10/26/24 Chelsea Barker, family court counsellorVeneer Sample Maker 11/13/24 documented as of this encounter
--- OUTSIDE RECORDS SUMMARY | 2025-04-13 12:10 | XMS_ITS | Encounter Summary ---
Author Organization [facility] Address [address] [place] [address] Care Team Providers Care Financial Administrative Assistant Name Role Phone Maddy Romano MD Primary Care Provider + [phone] Manas Iabrra MD Unavailable Zion Barton MD Unavailable Molina Charles MD Unavailable [phone] Inés Lemus RN Unavailable [phone] Karuna Maria OT Unavailable Unavaila Renu Paul NP Unavailable [phone] Eladio Mcrae MD Unavailable [phone] Marcy Schroeder RN Unavailable [phone] Briana Poe RN Unavailable [phone] Marina Le RN Unavailable Chelsea Barker RN Unavailable Unavail able Encounter Details Date Type Department Care Team (Late st Contact Info) Description 05/11/2024 Telephone [facility] [address] [place] [address] Ragini Wheeler, RN Social History [...] attend chur ch or lutheran services? Never 04/30/2024 Do you belong to [...] in a long term (including now)? No 04/30/2024 Personal Safety Answer Date Recorded Have you ever been in or are you currently in a harmful physical or emotional relationship or is someone making you feel afraid or unsafe? Denies 04/21/2024 Comments No Sex and Gender Information Value Date Recorded Sex Assigned at Not on file Legal Sex Female 8:22 AM SR. DIRECTOR Gender Identity Female 11/15/2021 2:30 AM CDT [...] COVID: Suspected 09/24/2024 09/24/2024 09/24/2024 3:13 PM SR. DIRECTOR documented as of this encounter Care Teams Financial Administrative Assistant Relationship Specialty Start Date End Date Maddy Romano MD [address] [place] [id number] PCP - General 09/28/16 Manas Ibarra MD [address] [place] [address] Referring Physician Thoracic Surgery 11/05/18 Zion Barton MD [address] [place] [address] Radiation Oncologist Radiation Oncology 05/05/19 Molina Charles MD 1 [facility] [address] [place] [address] Referring Physician Transplant Hepatology 12/15/20 Inés Lemus RN [address] [facility] [address] [place] [address] Spindle Setter 10/31/21 5 Karuna Maria, OT Occupational Therapist Occupational Therapy 09/20/22 Renu Treviño NP [address] [facility] [address] [place] [address] Nurse Practitioner Radiation Oncology 11/08/22 Eladio Mcrae MD [address] [place] [address] Referring Physician Obstetrics and Gynecology 11/15/22 Marcy Schroeder RN [address] [place] [address] Spindle Setter 04/27/24 Briana Poe, TYRA [address] [facility] [address] [place] [address] SHOP Outpatient Teacher Of The Visually Impaired 04/30/24 05/28/24 Marina Le, RN 4590 [facility] [address] [place] [address] SHOP Outpatient Teacher Of The Visually Impaired 10/05/24 10/26/24 Chelsea Barker, bonding supervisorSpindle Setter 11/13/24 documented as of this encounter
--- OUTSIDE RECORDS SUMMARY | 2025-04-13 12:10 | XMS_ITS | Encounter Summary ---
Author Organization [facility] Address [address] [place] [address] Phone Care Team Providers Care Ammonia Box Operator Name Role Phone Maddy Romano MD Primary Care Provider Astrid Haq NP Unavailable Manas Ibarra MD Unavailable Zion Barton MD Unavailable Molina Charles MD Unavailable [phone] Inés Lemus RN Unavailable [phone] Karuna Maria OT Unavailable Unavaila Renu Paul NP Unavailable Eladio Mcrae MD Unavailable Marcy Schroeder RN Unavailable [phone] Briana Poe RN Unavailable [phone] Marina Le RN Unavailable [phone] Chelsea Barker RN Unavailable Unavail able Encounter [...] on file Legal Sex Female 8:22 AM AUTO APPRENTICE MECHANIC Gender Identity Female 11/15/2021 2:30 AM CDT [...] COVID: Suspected 09/24/2024 09/24/2024 09/24/2024 3:13 PM AUTO APPRENTICE MECHANIC documented as of this encounter Care Teams Ammonia Box Operator Relationship Specialty Start Date End Date Maddy Romano MD [address] [place] [address] PCP - General 09/28/16 Astrid Haq NP [address] [place], [place] [address] Nurse Practitioner Radiation Oncology 11/05/18 11/07/22 Manas Ibarra MD [address] [place], [place] [address] Referring Physician Thoracic Surgery 11/05/18 Zion Barton MD [address] [place], [place] [address] Radiation Oncologist Radiation Oncology 05/05/19 Molina Charles MD 1 [facility] [address] [place] [address] Referring Physician Transplant Hepatology 12/15/20 Inés Lemus, TYRA [address] [facility] [address] [place] [address] Nutrition Assistant 10/31/21 5 Karuna Maria OT Occupational Therapist Occupational Therapy 09/20/22 Renu Treviño NP 49[address] [facility] [address] [place] [address] Nurse Practitioner Radiation Oncology 11/08/22 Eladio Mcrae MD [address] [place] [address] Referring Physician Obstetrics and Gynecology 11/15/22 Marcy Schroeder, RN [address] [place] [address] Nutrition Assistant 04/27/24 Briana Poe TYRA 4590 [facility] [address] [place] [address] SHOP Outpatient Professor Of Art History 04/30/24 05/28/24 Marina Le RN 4590 [facility] [address] [place] [address] [facility] Outpatient Professor Of Art History 10/05/24 10/26/24 Chelsea Barker, form setterNutrition Assistant 11/13/24 documented as of this encounter
--- OUTSIDE RECORDS SUMMARY | 2025-04-13 12:11 | XMS_ITS | Encounter Summary ---
Author Organization [facility] Address [address] [place] [address] Phone Care Team Providers Care Wood Die Maker Name Role Phone Maddy Romano MD Primary Care Provider Astrid Haq NP Unavailable Manas Ibarra MD Unavailable Zion Barton MD Unavailable [place]ina Charles MD Unavailable [phone] Inés Lemus RN Unavailable [phone] Karuna Maria OT Unavailable Unavaila Renu Paul NP Unavailable Eladio Mcrae MD Unavailable Marcy Schroeder RN Unavailable [phone] Briana Poe RN Unavailable [phone] Marina Le RN Unavailable [phone] Chelsea Barker RN Unavailable Unavail able Encounter [...] file Legal Sex Female 8:22 AM SENIOR UI WEB DEVELOPER Gender Identity Female 11/15/2021 2:30 AM [...] Suspected 09/24/2024 09/24/2024 09/24/2024 3:13 PM SENIOR UI WEB DEVELOPER documented as of this encounter Care Teams Wood Die Maker Relationship Specialty Start Date End Date Maddy Romano MD [address] [place] [address] PCP - General 09/28/16 Astrid Haq NP [address] [place] [address] Nurse Practitioner Radiation Oncology 11/05/18 11/07/22 Manas Ibarra MD [address] [place] [address] Referring Physician Thoracic Surgery 11/05/18 Zion Barton MD [address] [place] [address] Radiation Oncologist Radiation Oncology 05/05/19 Molina Charles MD 1 [facility] [address] [place] [address] Referring Physician Transplant Hepatology 12/15/20 Inés Lemus RN 4590 [facility] [address] [place] [address] Knitted Cloth Examiner 10/31/21 5 Karuna Maria, OT Occupational Therapist Occupational Therapy 09/20/22 Renu Treviño NP 49[address] [facility] [address] [place], [place] [address] Nurse Practitioner Radiation Oncology 11/08/22 Eladio Mcrae MD [address] [place], [place] [address] Referring Physician Obstetrics and Gynecology 11/15/22 Marcy Schroeder, RN [address] [place] [address] Knitted Cloth Examiner 04/27/24 Briana Poe RN 4590 [facility] [address] [place] [address] SHOP Outpatient Detail Sergeant 04/30/24 05/28/24 Marina Le RN [address] [facility] [address] [place] [address] SHOP Outpatient Detail Sergeant 10/05/24 10/26/24 Chelsea Barker, design architectKnitted Cloth Examiner 11/13/24 documented as of this encounter
--- OUTSIDE RECORDS SUMMARY | 2025-04-13 12:11 | XMS_ITS | Encounter Summary ---
Author Organization [facility] Address [address] [place] [address] Care Team Providers Care Felling Bucking Supervisor Name Role Phone Maddy Romano MD Primary Care Provider [phone] Manas Ibarra MD Unavailable Zion Barton MD Unavailable Molina Charles MD Unavailable [phone] Karuna Maria OT Unavailable Unavaila Renu Paul NP Unavailable [phone] Eladio Mcrae MD Unavailable [phone] Marcy Schroeder RN Unavailable [phone] Chelsea Barker RN Unavailable Unavail able Encounter Details Date Type Department Care Team (Late st Contact Info) Description 04/13/2025 Documentation [facility] Transplant Liver 45[address] [facility] [phone] [place] [address] Celsa Vargas Social History Tobacco Use Types Packs/Day Years Used Date Smoking Tobacco: Former Cigarettes 0.5 51 1 - 2020 Smokeless Tobacco: Never [facility] Utilities Answer Date Recorded In the [...] often do you attend chur ch or spiritism services? Never 10/05/2024 Do you belong to any clubs o r organizations such as gnosticism groups, unions, fraternal or athletic groups, or [...] any time in the past 12 m [facility], were you homeless or [...] on file Legal Sex Female 8:22 AM GUN PROFILER Gender Identity Female 11/15/2021 2:30 AM CDT [...] on filedocumented in this encounter Care Teams Felling Bucking Supervisor Relationship Specialty Start Date End Date Maddy Romano MD [address] [place] [address] PCP - General 09/28/16 Manas Ibarra MD [address] [place] [address] Referring Physician Thoracic Surgery 11/05/18 Zion Barton MD [address] [place], [place] [address] Radiation Oncologist Radiation Oncology 05/05/19 Molina Charles MD 1 [facility] [address] [place] [address] Referring Physician Transplant Hepatology 12/15/20 Karuna Maria, OT Occupational Therapist Occupational Therapy 09/20/22 Renu Treviño NP 49[address] [facility] [address] [place] [address] Nurse Practitioner Radiation Oncology 11/08/22 Eladio Mcrae MD [address] [place] [address] Referring Physician Obstetrics and Gynecology 11/15/22 Marcy Schroeder, RN [address] [place] [address] Radial Router Operator 04/27/24 Chelsea Barker, hose testerRadial Router Operator 11/13/24 documented as of this encounter
--- OUTSIDE RECORDS SUMMARY | 2025-04-13 12:11 | XMS_ITS | Encounter Summary ---
Author Organization [facility] Address [address] [place] [address] Phone Care Team Providers Care Pull Worker Name Role Phone Maddy Romano MD Primary Care Provider Astrid Haq NP Unavailable Manas Ibarra MD Unavailable Zion Barton MD Unavailable Molina Charles MD Unavailable [phone] Inés Lemus RN Unavailable [phone] Karuna Maria OT Unavailable Unavaila Renu Paul NP Unavailable [phone] Eladio Mcrae MD Unavailable [phone] Marcy Schroeder RN Unavailable [phone] Briana Poe RN Unavailable [phone] Marina Le RN Unavailable Chelsea Barker RN [...] on file Legal Sex Female 8:22 AM BUSINESS ANALYST CONSULTANT Gender Identity Female 11/15/2021 2:30 AM [...] COVID: Suspected 09/24/2024 09/24/2024 09/24/2024 3:13 PM BUSINESS ANALYST CONSULTANT documented as of this encounter Care Teams Pull Worker Relationship Specialty Start Date End Date Maddy Romano MD [address] [place] [address] PCP - General 09/28/16 Astrid Haq NP [address], [place] [address] Nurse Practitioner Radiation Oncology 11/05/18 11/07/22 Manas Ibarra MD [address] [place], [place] [address] Referring Physician Thoracic Surgery 11/05/18 Zion Barton MD [address], [place] [address] Radiation Oncologist Radiation Oncology 05/05/19 Molina Charles MD 1 [facility] [address] [place] [address] Referring Physician Transplant Hepatology 12/15/20 Inés Lemus, TYRA [address] [facility] [address] [place] [address] Tool Maker 10/31/21 5 Karuna Maria OT Occupational Therapist Occupational Therapy 09/20/22 Renu Treviño NP [address] [facility] [address] [place] [address] Nurse Practitioner Radiation Oncology 11/08/22 Eladio Mcrae MD [address] [place] [address] Referring Physician Obstetrics and Gynecology 11/15/22 Marcy Schroeder, RN [address] [place] [address] Tool Maker 04/27/24 Briana Poe TYRA 45[address] [facility] [address] [place] [address] SHOP Outpatient Polisher And Sander 04/30/24 05/28/24 Marina Le RN [address] [facility] [address] [place] [address] [facility] Outpatient Polisher And Sander 10/05/24 10/26/24 Chelsea Barker, letter stamping machine operatorTool Maker 11/13/24 documented as of this encounter
--- OUTSIDE RECORDS SUMMARY | 2025-04-13 12:11 | XMS_ITS | Encounter Summary ---
Author Organization [facility] Address [address] [place] [address] Care Team Providers Care Machine Striper Name Role Phone Mdady Romano MD Primary Care Provider Astrid Haq NP Unavailable Manas Ibarra MD Unavailable Zion Barton MD Unavailable Molina Charles MD Unavailable [phone] Inés Lemus RN Unavailable [phone] Karuna Maria OT Unavailable Unavaila Renu Paul NP Unavailable [phone] Eladio Mcare MD Unavailable [phone] Marcy Schroeder RN Unavailable [phone] Briana Poe RN Unavailable [phone] Marina Le RN Unavailable [phone] Chelsea Barker RN Unavailable Unavail able Reason for Visit * Reason Onset Date Comments Ready to schedule 04/25/2022 Encounter Details Date Type Department Care Team (Late st Contact Info) Description 04/25/2022 Telephone [facility] Specialty Services [address] [place] [address] Miscellaneous, Not In File Ready to schedule [...] on file Legal Sex Female 8:22 AM WOODWORKING SHOP LABORER Gender Identity Female 11/15/2021 2:30 AM [...] COVID: Suspected 09/24/2024 09/24/2024 09/24/2024 3:13 PM WOODWORKING SHOP LABORER documented as of this encounter Care Teams Machine Striper Relationship Specialty Start Date End Date Maddy Romano MD [address] [place] [address] PCP - General 09/28/16 Astrid Haq NP [address] [place] [address] Nurse Practitioner Radiation Oncology 11/05/18 11/07/22 Manas Ibarra MD [address] [place] [address] Referring Physician Thoracic Surgery 11/05/18 Zion Barton MD [address] [place] [address] Radiation Oncologist Radiation Oncology 05/05/19 Molina Charles MD 1 [facility] [address] [place] [address] Referring Physician Transplant Hepatology 12/15/20 Inés Lemus, TYRA [address] [facility] [address] [place] [address] Hospital Pharmacy Technician 10/31/21 5 Karuna Maria, OT Occupational Therapist Occupational Therapy 09/20/22 Renu Treviño NP [address] [facility] [address] [place] [address] Nurse Practitioner Radiation Oncology 11/08/22 Eladio Mcrae MD [address] [place] [address] Referring Physician Obstetrics and Gynecology 11/15/22 Marcy Schroeder RN [address] [place] [address] Hospital Pharmacy Technician 04/27/24 Briana Poe, TYRA [address] [address] SHOP Outpatient President Financial Institution 04/30/24 05/28/24 Marina Le RN [address] [place] [address] [facility] Outpatient President Financial Institution 10/05/24 10/26/24 Chelsea Barker, monumental stonemasonHospital Pharmacy Technician 11/13/24 documented as of this encounter
--- OUTSIDE RECORDS SUMMARY | 2025-04-13 12:11 | XMS_ITS | Clinical Summary ---
Author Organization [facility] Address [address] [place] [address] Phone Care Team Providers Care Floor Renovator Name Role Phone Unavailable Primary Care Provider Unavailabl e Allergies No known active allergies Medications acetaminophen (TYLENOL) 325 mg tablet Take 325 mg by mouth every 8 hours. Active glucagon (BAQSIMI) 3 mg/spray Draper, Non-Aerosol 1 Draper. GIVE 1 spray in one NOSTRIL ONE [...] Negative 04/03/2024 3:27 AM CDT [facility] Kranem [facility] Stool STOOL SPECIMEN / Unknown Collection / Unknown 04/03/2024 1:23 AM CDT 04/03/2024 1:24 AM CDT us Marcos Newton MD BODY FLUIDS AND STOOLS Final R esult [facility] Kranem [facility] CLIA# [id number] [place] [address] * LIPID PANEL (04/03/2024 12:30 AM CDT) CHOLESTEROL 114 <200 mg/dL 04/03/2024 1:34 AM CDT [facility] TRIGLYCERIDE 62 <150 mg/dL 04/03/2024 1:34 AM CDT [facility] K[facility] HDL 50 40 - 59 mg/dL 04/03/2024 1:34 AM CDT [facility] LDL CALCULATED 52 <100 mg/dL 04/03/2024 1:34 AM CDT [facility] NON-HDL CHOLESTEROL 64 <130 mg/dL 04/03/2024 1:34 AM CDT [facility] Blood Venipuncture / Unknown 04/03/2024 12:30 AM CDT 04/03/2024 1:04 AM CDT [facility] - 04/03/2024 1:34 AM CDT [...] ORDERABLES Final Res ult [id number] [place] [address] * (ABNORMAL) HEMOGLOBIN A1C (04/02/2024 6:29 PM CDT) HEMOGLOBIN A1C 6.5(H) <=5.6 % 04/02/2024 7:01 PM CDT [facility] Kran[facility] EST. AVG GLUCOSE, A1C 140 mg/dL 04/02/2024 7:01 PM CDT [facility] Blood Venipuncture / Unknown 04/02/2024 6:29 PM CDT 04/02/2024 6:34 PM CDT [facility] - 04/02/2024 7:01 PM CDT HGB A1C INTERPRETATION NORMAL: <5.7% PRE-DIABETES: 5.7 - 6.4% DIABETES: 6.5% OR GREATER us Marcos Newton MD CHEMISTRY ORDERABLES Final Res ult [facility] LABORATORY [facility] CLIA# [id number] [address] [place] [address] from Last 3 Months or Most Recently Relevant to Health Maintenance Insurance Member Subscriber Plan / Payer (Ef fective 2024-Present) Name:Aleah Levine Relation to Subscriber:Self Name:Aleah Levine Payer ID:Not on file Group ID:[id number] Type:RX Medicare Part D Address: [address] Advance Directives For more information, please contact: [phone] * Full Code (Latest Code Status on File) Date Activated Date Inactivated Comments 04/02/2024 6:16 PM 04/06/2024 2:11 PM
--- OUTSIDE RECORDS SUMMARY | 2025-04-13 12:11 | XMS_ITS | Encounter Summary ---
Author Organization [facility] Address [address] [place] [address] Care Team Providers Care Supervisor Airplane Flight Attendant Name Role Phone Maddy Romano MD Primary Care Provider [phone] Manas Ibarra MD Unavailable Zion Barton MD Unavailable Molina Charles MD Unavailable [phone] Karuna Maria OT Unavailable Unavaila Renu Paul NP Unavailable [phone] Eladio Mcrae MD Unavailable [phone] Marcy Schroeder RN Unavailable [phone] Chelsea Barker RN Unavailable Unavail able Encounter Details Date Type Department Care Team (Late st Contact Info) Description 04/13/2025 Telephone [facility] Transplant Liver [address] [facility] [phone] [place] [address] Chelsea Barker, RN Social History Tobacco Use Types Packs/Day Years Used Date Smoking Tobacco: Former Cigarettes 0.5 51 1 970 - 2020 Smokeless Tobacco: Never [facility] Utilities Answer Date Recorded In the past 12 months has th e electric, gas, oil, or water [employer] threatened to shut off services in your [...] often do you attend chur ch or latter day services? Never 10/05/2024 Do you belong to [...] any time in the past 12 m [facility], were you homeless or living [...] on file Legal Sex Female 8:22 AM BUS ESCORT Gender Identity Female 11/15/2021 2:30 AM CDT [...] on filedocumented in this encounter Care Teams Supervisor Airplane Flight Attendant Relationship Specialty Start Date End Date Maddy Romano MD [address] [place] [address] PCP - General 09/28/16 Manas Ibarra MD [address] [place] [address] Referring Physician Thoracic Surgery 11/05/18 Zion Barton MD [address] [place] [address] Radiation Oncologist Radiation Oncology 05/05/19 Molina Charles MD 1 [facility] [address] [place] [address] Referring Physician Transplant Hepatology 12/15/20 Karuna Maria, OT Occupational Therapist Occupational Therapy 09/20/22 Renu Treviño NP [address] [facility] [address] [place] [address] Nurse Practitioner Radiation Oncology 11/08/22 Eladio Mcrae MD [address] [place], [place] [address] Referring Physician Obstetrics and Gynecology 11/15/22 Marcy Schroeder, RN [address] [place] [address] University Archivist 04/27/24 Chelsea Barker, hot mix operatorUniversity Archivist 11/13/24 documented as of this encounter
--- OUTSIDE RECORDS SUMMARY | 2025-04-13 12:11 | XMS_ITS | Encounter Summary ---
Author Organization [facility] Address [address] [place] [address] Care Team Providers Care Grab Hooker Name Role Phone Maddy Romano MD Primary Care Provider [phone] Manas Ibarra MD Unavailable Zion Barton MD Unavailable Molina Charles MD Unavailable [phone] Karuna Maria OT Unavailable Unavaila Renu Paul NP Unavailable [phone] Eladio Mcrae MD Unavailable [phone] Marcy Schroeder RN Unavailable [phone] Chelsea Barker RN Unavailable Unavail able Encounter Details Date Type Department Care Team (Latest Contact Info) Description 02/11/2025 Results Follow-Up [facility] Transplant Liver [address] [facility] [address] [place] [address] Chelsea Barker, RN Protime-INR, Comprehensive metabolic panel, eGFR Social History Tobacco Use Types Packs/Day Years Used Date Smoking Tobacco: Former Cigarettes 0.5 51 1 - 2020 Smokeless Tobacco: Never [facility] Utilities Answer Date Recorded [...] often do you attend chur ch or anabaptism services? Never 10/05/2024 Do you belong to any clubs o r organizations such as pentecostalism groups, unions, fraternal or athletic groups, or [...] in the past 12 m [facility], were you homeless or living in [...] file Legal Sex Female 8:22 AM TOOL CARRIER Gender Identity Female 11/15/2021 2:30 AM CDT [...] on filedocumented in this encounter Care Teams Grab Hooker Relationship Specialty Start Date End Date Maddy Romano MD [address] [place] [address] PCP - General 09/28/16 Manas Ibarra MD [address] [place] [address] Referring Physician Thoracic Surgery 11/05/18 Zion Barton MD [address] [place] [address] Radiation Oncologist Radiation Oncology 05/05/19 Molina Charles MD 1 [facility] [address] [place] [address] Referring Physician Transplant Hepatology 12/15/20 Karuna Maria, OT Occupational Therapist Occupational Therapy 09/20/22 Renu Treviño NP [address] [facility] [address] [place] [address] Nurse Practitioner Radiation Oncology 11/08/22 Eladio Mcrae MD [address] [place] [address] Referring Physician Obstetrics and Gynecology 11/15/22 Marcy Schroeder, RN [address] [place], [place] [address] Pit Boss 04/27/24 Chelsea Barker, forensic specialistPit Boss 11/13/24 documented as of this encounter
--- OUTSIDE RECORDS SUMMARY | 2025-04-13 12:11 | XMS_ITS ---
Author Organization [facility] Address [address] [place] [address] Care Team Providers Care Press Cleaner Name Role Phone Maddy Romano MD Primary Care Provider [phone] Manas Ibarra MD Unavailable Zion Barton MD Unavailable Molina Charles MD Unavailable [phone] Karuna Maria OT Unavailable Unavaila Renu Paul NP Unavailable [phone] Eladio Mcrae MD Unavailable [phone] Marcy Schroeder RN Unavailable [phone] Chelsea Barker RN Unavailable Unavail able Transplant Episode Liver Candidate [facility] ([place], [place]) - [facility] Center waitlisted on 08/17/2022 Marked as Active on 09/28/2024 Reason: Listed in [facility] Liver CoordinatorChelsea Barker RN Phone: N/A Fax: N/A Email: N/A Scores Score Value Updated Expires Exceptions/[place] sons CPRA Not available UNOS MELD 18 02/10/2025 05/11/2025 MELD (Calc) 23 04/09/2025 [place] Organ Diagnosis Organ Primary Contributory Liver Cirrhosis: Metabolic Dysfunction -Associated Steatohepatitis (MASH) Care Team Name Role Phone Fax Email Chelsea Barker, TYRA Liver Coordinator N/A N/A N/A Charito Lambert, DEVONTE Dietitian N/A N/A N/A Anna Ngo, ALIGNMENT MECHANIC Sld Inclusion Teacher N/A N/A N/A Molina Charles MD Referring Physician [phone] N/A Cynthia Robert RN Secondary Coordinator [phone] N/A N/A Celsa Vargas Primary Termite Treater Helper N/A N/A N/A [place] Bear Compliance Program Manager [phone] N/A N/A Events Pre-Transplant Referred: 10/26/2021 Evaluation [...]
--- OUTSIDE RECORDS SUMMARY | 2025-04-13 12:11 | XMS_ITS | Encounter Summary ---
Author Organization [facility] Healthcare Address [address] [place] [address] Care Team Providers Care Cable Weaver Name Role Phone Maddy Romano MD Primary Care Provider Astrid Haq NP Unavailable Manas Ibarra MD Unavailable Zion Barton MD Unavailable [phone] Molina Charles MD Unavailable +[phone] Inés Lemus RN Unavailable [phone] Karuna Maria OT Unavailable Unavaila Renu Paul NP Unavailable [phone] Eladio Mcrae MD Unavailable [phone] Marcy Schroeder RN Unavailable [phone] Briana Poe RN Unavailable [phone] Marina Le RN Unavailable [phone] Chelsea Barker RN Unavailable Unavail able Reason for Visit * Reason Onset Date Comments Ready to scheduled 04/26/2022 Encounter Details Date Type Department Care Team (Late st Contact Info) Description 04/26/2022 Telephone [facility] Specialty Services [address] [place] [address] Miscellaneous, Not In File Ready to scheduled [...] on file Legal Sex Female 8:22 AM TEXTILE MACHINERY SALES REPRESENTATIVE Gender Identity Female 11/15/2021 2:30 AM CDT [...] COVID: Suspected 09/24/2024 09/24/2024 09/24/2024 3:13 PM TEXTILE MACHINERY SALES REPRESENTATIVE documented as of this encounter Care Teams Cable Weaver Relationship Specialty Start Date End Date Maddy Romano MD [address] [place] [address] PCP - General 09/28/16 Astrid Haq NP [address] [place] [address] Nurse Practitioner Radiation Oncology 11/05/18 11/07/22 Manas Ibarra MD [address] [place] [address] Referring Physician Thoracic Surgery 11/05/18 Zion Barton MD [address] [place] [address] Radiation Oncologist Radiation Oncology 05/05/19 Molina Charles MD 1 [facility] [address] [place] [address] Referring Physician Transplant Hepatology 12/15/20 Inés Lemus, TYRA [address] [facility] [address] [place] [address] Icing And Glaze Maker 10/31/21 5 Karuna Maria, OT Occupational Therapist Occupational Therapy 09/20/22 Renu Treviño NP [address] [facility] [address] [place] [address] Nurse Practitioner Radiation Oncology 11/08/22 Eladio Mcrae MD [address] [place] [address] Referring Physician Obstetrics and Gynecology 11/15/22 Marcy Schroeder RN [address] [place] [address] Icing And Glaze Maker 04/27/24 Briana Poe, TYRA [address] [address] SHOP Outpatient Credit Adjuster 04/30/24 05/28/24 Marina Le RN [address] [place] [address] [facility] Outpatient Credit Adjuster 10/05/24 10/26/24 Chelsea Barker, peripatologistIcing And Glaze Maker 11/13/24 documented as of this encounter
--- OUTSIDE RECORDS SUMMARY | 2025-04-13 12:11 | XMS_ITS | Clinical Summary ---
Author Organization [facility] Address [address] [facility] [place] [address] Care Team Providers Care Facilities Planner Name Role Phone Unavailable Primary Care Provider Unavailabl e Source Comments [facility],non-owned Affiliates and Associated Physician Practices is amultiple site organization consisting of ambulatory clinics and hospital sitesin [place], [place], [place] and [place]. This disclosure is being madepursuant to the Care Everywhere program and may not contain all information available regarding this patient. 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
--- OUTSIDE RECORDS SUMMARY | 2025-04-13 12:11 | XMS_ITS | Encounter Summary ---
Author Organization [facility] Address [address] [place] [address] Care Team Providers Care Distribution Sales Representative Name Role Phone Unavailable Primary Care Provider Unavailabl e Reason for Visit * Reason Onset Date Comments TR on CKD 04/02/2024 Spoke w/Dr. Mueller Stroke/CVA 04/02/2024 Spoke w/Gladys @ Dr. Anthony's exchange Encounter Details Date Type Department Care Team (Late st Contact Info) Description 04/02/2024 Telephone [facility] Emergency [address] [place] [address] [place] [address] [place] [address] TR on CKD (Spoke w/Dr. Mueller); [...]
--- OUTSIDE RECORDS SUMMARY | 2025-04-13 12:11 | XMS_ITS | Clinical Summary ---
Author Organization [facility] Address [address] [place] [address] Care Team Providers Care Field Crop Farmer Name Role Phone Maddy Romano MD Primary Care Provider [phone] Active Problems Problem Noted Date Diagnosed Date [...] to complete this topic Insurance [facility] Care Teams Field Crop Farmer Relationship Specialty Start Date End Date Maddy Romano MD [address] [place] [address] PCP - General INTERNAL MEDICINE 01/16/23
--- OUTSIDE RECORDS SUMMARY | 2025-04-13 12:11 | XMS_ITS | Encounter Summary ---
Author Organization [facility] Address [address] [place] [address] Care Team Providers Care Roving Inspector Name Role Phone Maddy Rmoano MD Primary Care Provider [phone] Manas Ibarra MD Unavailable Zion Barton MD Unavailable Molina Charles MD Unavailable [phone] Karuna Maria OT Unavailable Unavaila Renu Paul NP Unavailable [phone] Eladio Mcrae MD Unavailable [phone] Marcy Schroeder RN Unavailable [phone] Chelsea Barker RN Unavailable Unavail able Encounter Details Date Type Department Care Team (Late st Contact Info) Description 04/13/2025 Telephone [facility] Transplant Liver [address] [facility] [phone] [place] [address] Celsa Vargas Social History Tobacco Use Types Packs/Day Years Used Date Smoking Tobacco: Former Cigarettes 0.5 51 1 - 2020 Smokeless Tobacco: Never [facility] Utilities Answer Date Recorded In the past [...] often do you attend chur ch or sikh services? Never 10/05/2024 Do you belong to any clubs o r organizations such as sikhism groups, unions, fraternal or athletic groups, or [...] in the past 12 m [facility], were you homeless or living [...] on file Legal Sex Female 8:22 AM ACCESS CONSULTANT Gender Identity Female 11/15/2021 2:30 AM [...] on filedocumented in this encounter Care Teams Roving Inspector Relationship Specialty Start Date End Date Maddy Romano MD [address] [place] [address] PCP - General 09/28/16 Manas Ibarra MD [address] [place] [address] Referring Physician Thoracic Surgery 11/05/18 Zion Barton MD [address] [place], [place] [address] Radiation Oncologist Radiation Oncology 05/05/19 Molina Charles MD 1 [facility] [address] [place] [address] Referring Physician Transplant Hepatology 12/15/20 Karuna Maria, OT Occupational Therapist Occupational Therapy 09/20/22 Renu Treviño NP [address] [facility] [address] [place] [address] Nurse Practitioner Radiation Oncology 11/08/22 Eladio Mcrae MD [address] [facility] [address] [place], [place] [address] Referring Physician Obstetrics and Gynecology 11/15/22 Marcy Schroeder, RN [address] [place] [address] Application Support Consultant 04/27/24 Chelsea Barker, ticket printer and taggerApplication Support Consultant 11/13/24 documented as of this encounter
--- OUTSIDE RECORDS SUMMARY | 2025-04-13 12:11 | XMS_ITS ---
Author Organization [facility] Address [address] [place] [address] Care Team Providers Care Bark Spudder Name Role Phone Maddy Romano MD Primary Care Provider [phone] Manas Ibarra MD Unavailable Zion Barton MD Unavailable Molina Charles MD Unavailable [phone] Karuna Maria OT Unavailable Unavaila Renu Paul NP Unavailable [phone] Eladio Mcrae MD Unavailable [phone] Marcy Schroeder RN Unavailable [phone] Chelsea Barker RN Unavailable Unavail able Transplant Episode Kidney Candidate [facility] ([place], [place]) [facility] Center waitlisted on 05/07/2024 Marked as Inactive on 05/26/2024 Reason: Candidate requires multi-organ [place] only, isolated offers not accepted Kidney CoordinatorMarcy Schroeder RN Email: N/A Scores Score Value Updated Exceptions/Reas ons CPRA Not available EPTS (Calc) 56 04/13/2025 [place] Organ Diagnosis Organ Primary Contributory Kidney Other, Specify - ESRD TR due to dehydration Care Team Name Role Phone Fax Email Marcy Schroeder RN Kidney Coordinator [phone] N/A Events Pre-Transplant Referred: 04/21/2024 Evaluation began: 04/22/2024 Committee: 04/27/2024 Center waitlisted: 05/07/2024
--- OUTSIDE RECORDS SUMMARY | 2025-04-13 12:11 | XMS_ITS | Encounter Summary ---
Author Organization [facility] Address [address] [place] [address] Phone Care Team Providers Care Earth Burner Name Role Phone Maddy Romano MD Primary Care Provider Astrid Haq NP Unavailable [phone] Manas Ibarra MD Unavailable Zion Barton MD Unavailable Molina Charles MD Unavailable [phone] Inés Lemus RN Unavailable [phone] Karuna Maria OT Unavailable Unavaila Renu Paul NP Unavailable Eladio Mcrae MD Unavailable [phone] Marcy Schroeder RN Unavailable [phone] Briana Poe RN Unavailable Marina Le [...] on file Legal Sex Female 8:22 AM WAFER CLEANER Gender Identity Female 11/15/2021 2:30 AM CDT [...] COVID: Suspected 09/24/2024 09/24/2024 09/24/2024 3:13 PM WAFER CLEANER documented as of this encounter Care Teams Earth Burner Relationship Specialty Start Date End Date Maddy Romano MD [address] [place] [address] PCP - General 09/28/16 Astrid Haq NP [address] [place] [address] Nurse Practitioner Radiation Oncology 11/05/18 11/07/22 Manas Ibarra MD [address] [place] [address] Referring Physician Thoracic Surgery 11/05/18 Zion Barton MD [address] [place] [address] Radiation Oncologist Radiation Oncology 05/05/19 Molina Charles MD [address] [place] [address] [address] [place] [address] Referring Physician Transplant Hepatology 12/15/20 Inés Lemus, TYRA [address] [facility] [address] [place] [address] Heater Operator 10/31/21 5 Karuna Maria, OT Occupational Therapist Occupational Therapy 09/20/22 Renu Treviño NP [address] [facility] [address] [place] [address] Nurse Practitioner Radiation Oncology 11/08/22 Eladio Mcrae MD [address] [place] [address] Referring Physician Obstetrics and Gynecology 11/15/22 Marcy Schroeder RN [address] [place] [address] Heater Operator 04/27/24 Briana Poe, TYRA [address] [address] [facility] Outpatient Geologist Petroleum 04/30/24 05/28/24 Marina Le RN [address] [address] [facility] Outpatient Geologist Petroleum 10/05/24 10/26/24 Chelsea Barker, ms sql server developerHeater Operator 11/13/24 documented as of this encounter
--- OUTSIDE RECORDS SUMMARY | 2025-04-13 12:11 | XMS_ITS | Encounter Summary ---
Author Organization [facility] Address [address] [place] [address] Phone Care Team Providers Care Space Officer Name Role Phone Maddy Romano MD Primary Care Provider Astrid Haq NP Unavailable Manas Ibarra MD Unavailable Zion Barton MD Unavailable Molina Charles MD Unavailable [phone] Inés Lemus RN Unavailable [phone] Karuna Maria OT Unavailable Unavaila Renu Paul NP Unavailable Eladio Mcrae MD Unavailable Marcy Schroeder RN Unavailable [phone] Briana Poe RN Unavailable Marina Le RN [...] on file Legal Sex Female 8:22 AM TRACK LAYING EQUIPMENT OPERATOR Gender Identity Female 11/15/2021 2:30 AM [...] COVID: Suspected 09/24/2024 09/24/2024 09/24/2024 3:13 PM TRACK LAYING EQUIPMENT OPERATOR documented as of this encounter Care Teams Space Officer Relationship Specialty Start Date End Date Maddy Romano MD [address] [place] [address] PCP - General 09/28/16 Astrid Haq NP [address] [place], [place] [address] Nurse Practitioner Radiation Oncology 11/05/18 11/07/22 Manas Ibarra MD [address] [place], [place] [address] Referring Physician Thoracic Surgery 11/05/18 Zion Barton MD [address] [place], [place] [address] Radiation Oncologist Radiation Oncology 05/05/19 Molina Charles MD 1 [facility] [address] [place] [address] Referring Physician Transplant Hepatology 12/15/20 Inés Lemus, TYRA [address] [facility] [address] [place] [address] Real Estate Professor 10/31/21 5 Karuna Maria OT Occupational Therapist Occupational Therapy 09/20/22 Renu Treviño NP [address] [facility] [address] [place] [address] Nurse Practitioner Radiation Oncology 11/08/22 Eladio Mcrae MD [address] [place] [address] Referring Physician Obstetrics and Gynecology 11/15/22 Marcy Schroeder, RN [address] [place] [address] Real Estate Professor 04/27/24 Briana Poe TYRA 4590 [facility] [address] [place] [address] SHOP Outpatient Radio Control Crane Operator 04/30/24 05/28/24 Marina Le RN [address] [facility] [address] [place] [address] [facility] Outpatient Radio Control Crane Operator 10/05/24 10/26/24 Chelsea Barker, aquatic instructorReal Estate Professor 11/13/24 documented as of this encounter
--- OUTSIDE RECORDS SUMMARY | 2025-04-13 12:11 | XMS_ITS | Encounter Summary ---
Author Organization [facility] Address [address] [place] [address] Care Team Providers Care Spreader Box Operator Name Role Phone Maddy Romano MD Primary Care Provider Manas Ibarra MD Unavailable Zion Barton MD Unavailable Molina Charles MD Unavailable [phone] Karuna Maria OT Unavailable Unavaila Renu Paul NP Unavailable [phone] Eladio Mcrae MD Unavailable [phone] Marcy Schroeder RN Unavailable [phone] Chelsea Barker RN Unavailable Unavail able Encounter Details Date Type Department Care Team (Latest Contact Info) Description 04/13/2025 Results Follow-Up [facility] Transplant Liver 4590 [facility] [address] [place] [address] Chelsea Barker, TYRA Comprehensive metabolic panel, Protime-INR, Urinalysis reflex to microscopic, Additional followed-up results: 2 Social History Tobacco Use Types Packs/Day Years Used Date Smoking Tobacco: Former Cigarettes 0.5 51 1 970 - 2020 Smokeless Tobacco: Never [facility] Utilities Answer Date Recorded In [...] often do you attend chur ch or taoist services? Never 10/05/2024 Do you belong to [...] place to sleep or slept in a halfway (including now)? No 12/31/2022 Housing Stability Vital [...] were you homeless or living in a halfway (including now)? No 10/05/2024 Personal Safety Answer Date Recorded Have you ever been in or are you currently in a harmful physical or emotional relationship or is someone making you feel afraid or unsafe? Denies 12/14/2024 Comments No Sex and Gender Information Value Date Recorded Sex Assigned at Not on file Legal Sex Female 8:22 AM WOOD BUCKER Gender Identity Female 11/15/2021 2:30 AM CDT [...] on filedocumented in this encounter Care Teams Spreader Box Operator Relationship Specialty Start Date End Date Maddy Romano MD [address] [place], [place] [address] PCP - General 09/28/16 Manas Ibarra MD [address] [place], [place] [address] Referring Physician Thoracic Surgery 11/05/18 Zion Barton MD [address] [place], [place] [address] Radiation Oncologist Radiation Oncology 05/05/19 Molina Charles MD 1 [facility] [address] [place] [address] Referring Physician Transplant Hepatology 12/15/20 Karuna Maria, OT Occupational Therapist Occupational Therapy 09/20/22 Renu Treviño NP [address] [facility] [address] [place] [address] Nurse Practitioner Radiation Oncology 11/08/22 Eladio Mcrae MD [address] [place] [address] Referring Physician Obstetrics and Gynecology 11/15/22 Marcy Schroeder, RN [address] [place], [place] [address] Community Director 04/27/24 Chelsea Barker, fire fighter airportCommunity Director 11/13/24 documented as of this encounter
--- OUTSIDE RECORDS SUMMARY | 2025-04-13 12:11 | XMS_ITS | Encounter Summary ---
Author Organization [facility] Address [address] [place] [address] Phone Care Team Providers Care Scratch Brusher Name Role Phone Maddy Romano MD Primary Care Provider Astrid Haq NP Unavailable [phone] Manas Ibarra MD Unavailable Zion Barton MD Unavailable Molina Charles MD Unavailable [phone] Inés Lemus RN Unavailable [phone] Karuna Maria OT Unavailable Unavaila Renu Paul NP Unavailable [phone] Eladio Mcrae MD Unavailable Marcy Schroeder RN Unavailable [phone] Briana Poe RN Unavailable [phone] Marina Le RN Unavailable [phone] Chelsea Barker RN Unavailable Unavail able Encounter [...] on file Legal Sex Female 8:22 AM RESIDENT IN DIAGNOSTIC RADIOLOGY Gender Identity Female 11/15/2021 2:30 AM CDT [...] COVID: Suspected 09/24/2024 09/24/2024 09/24/2024 3:13 PM RESIDENT IN DIAGNOSTIC RADIOLOGY documented as of this encounter Care Teams Scratch Brusher Relationship Specialty Start Date End Date Maddy Romano MD [address] [place] [address] PCP - General 09/28/16 Astrid Haq NP [address] [place] [address] Nurse Practitioner Radiation Oncology 11/05/18 11/07/22 Manas Ibarra MD [address] [place] [address] Referring Physician Thoracic Surgery 11/05/18 Zion Barton MD [address] [place] [address] Radiation Oncologist Radiation Oncology 05/05/19 Molina Charles MD [address] [place] [address] [address] [place] [address] Referring Physician Transplant Hepatology 12/15/20 Inés Lemus, TYRA 45[address] [facility] [address] [place] [address] Vasc Tech 10/31/21 5 Karuna Maria, OT Occupational Therapist Occupational Therapy 09/20/22 Renu Treviño NP 49[address] [facility] [address] [place] [address] Nurse Practitioner Radiation Oncology 11/08/22 Eladio Mcrae MD [address] [facility] [address] [place] [address] Referring Physician Obstetrics and Gynecology 11/15/22 Marcy Schroeder RN [address] [place] [address] Vasc Tech 04/27/24 Briana Poe, TYRA [address] [address] [facility] Outpatient Ip Attorney 04/30/24 05/28/24 Marina Le RN [address] [address] [facility] Outpatient Ip Attorney 10/05/24 10/26/24 Chelsea Barker, patient accessVasc Tech 11/13/24 documented as of this encounter
--- OUTSIDE RECORDS SUMMARY | 2025-04-13 12:11 | XMS_ITS | Clinical Summary ---
Author Organization [facility] Address [address] [place] [address] Care Team Providers Care Court Worker Name Role Phone Maddy Romano MD Primary Care Provider Manas Ibarra MD Unavailable Zion Barton MD Unavailable Molina Charles MD Unavailable [phone] Karuna Maria OT Unavailable Unavaila Renu Paul NP Unavailable [phone] Eldaio Mcrae MD Unavailable [phone] Marcy Schroeder RN Unavailable [phone] Chelsea Barker RN Unavailable Unavail able [...] 2 diabetes mellitus without complication, unspecified whether snf insulin use (HCC) Will use 1 transmitter every 90 days 1 each 1 08/19/19 25 Active pen needle, diabetic (BD Ultra-Fine Mini Pen Needle) 31 gauge x 3/16 needleIndications: Type 2 diabetes mellitus without complication, unspecified whether intermediate frame tender insulin use (HCC) USE TO INJECT INSULIN [...] stage 3a chronic kidney disease, unspecified whether snf insulin use (HCC) Inject 44 Units under the skin nightly 45 mL 3 02/20/20 25 Active insulin lispro (HumaLOG, ADMELOG) 100 unit/mL pen for injectionIndicatio ns:Type 2 diabetes mellitus with stage 3a chronic kidney disease, unspecified whether snf insulin use (HCC) Inject 8 units with meals tid, plus sliding scale up to 40u daily 15 mL 02/20/20 25 026 Active blood-glucose sensor (Dexcom G6 Sensor) deviceIndications: Type 2 diabetes mellitus with stage 3a chronic kidney disease, unspecified whether snf insulin use (HCC) Will use 1 sensor every 10 days. 1 box = 3 sensors. 3 each 02/20/20 25 Active tirzepatide (Mounjaro) 5 mg/0.5 mL pen injector injectionIndicatio ns:Type 2 diabetes mellitus with stage 3a chronic kidney disease, unspecified whether snf insulin use (HCC) Inject 0.5 mL (5 [...] 10/10/2022 Assessment & Plan (10/12/2022 12:20 PM WORLD TRAVEL COUNSELOR): Episode of atrial flutter overnight with RVR up to 140s. Patient asymptomatic, normotensive. IV metoprolol X2 given to achieve rate control. [id number] vasc score of 3. TTE from 09/03 without valvular abnormalities. No new episodes today. Lytes within normal limits. - Continue alarm security or surveillance monitor - Continue home dose of metoprolol 25mg BID - Given that patient might be listed for transplant, hepatology would prefer to avoid apixaban. Lovenox is not ideal given her platelet count less than 100. Her INR is too high to consider warfarin. Anemia 10/05/2022 Assessment & Plan (10/11/2022 12:28 PM WORLD TRAVEL COUNSELOR): - Hgb has down trended from 8 [...] daily Assessment & Plan (10/11/2022 12:45 PM WORLD TRAVEL COUNSELOR): -Continue home dose of metoprolol 25mg BID Hepatic encephalopathy 07/31/2022 Assessment & Plan (03/06/2023 5:49 PM CDT): Good control on current medical management. No changes indicated. Assessment & Plan (08/03/2022 1:05 PM WORLD TRAVEL COUNSELOR): Pt with hx of LYONS cirrhosis presenting with progressively worsening mental status over past several weeks. On initial examination patient was AAOx1, on subsequent exam she is now AAOx2 with appropriate responses. NH3 75. Unfortunately no safe area for bedside diagnostic paracentesis. Slurred speech and concerns for swallowing. INSIDE WIREMAN completed swallow study and normal. Head CT: No acute intracranial abnormality. -Awaiting Liver MRI -Increased Lactulose to 4x daily (only 1 stool on 08/02) - Rifaximin and Lactulose (goal 3-5 bowel movements) - Fall precautions. - PT/OT: Home with assistance. Assessment & Plan (08/02/2022 2:34 PM WORLD TRAVEL COUNSELOR): Pt with hx of LYONS cirrhosis presenting with progressively worsening mental status over past several weeks. On initial examination patient was AAOx1, on subsequent exam she is now AAOx2 with appropriate responses. NH3 75. Unfortunately no safe area for bedside diagnostic paracentesis. Slurred speech and concerns for swallowing. INSIDE WIREMAN completed swallow study and normal. Head CT: No acute intracranial abnormality. - Rifaximin and Lactulose (goal 3-5 bowel movements) - Fall precautions. - PT/OT: Home with assistance. - INSIDE WIREMAN completed bedside swallow and Normal Assessment & Plan (08/01/2022 3:28 PM WORLD TRAVEL COUNSELOR): Pt with hx of LYONS cirrhosis presenting [...] concerns for swallowing. - Fall precautions. - INSIDE WIREMAN/PT/OT Consults. Assessment & Plan (08/01/2022 4:16 AM WORLD TRAVEL COUNSELOR): Pt with hx of LYONS cirrhosis presenting [...] and exercise - Plan for meeting with public health educator, dietitian next visit Assessment & Plan (10/12/2022 2:58 PM WORLD TRAVEL COUNSELOR): Previously on dose reduced insulin regimen at [facility]SH 20u lantus, 7u tid lispro + ssi. - Her blood sugars were initially on the lower side (90-100) in setting of poor po intake and TR. Continue SSI only for now and will uptitrate as needed. - Continue Lantus 10u/daily + lispro 4TID Assessment & Plan (08/03/2022 1:09 PM WORLD TRAVEL COUNSELOR): Home regimen of toujeo 42 units + SSI. -Lantus, Lispro TID AC and SSI -No Juice Diet -Consistent Carb+ 2gm NA diet. -CTM BGL Assessment & Plan (08/02/2022 2:38 PM WORLD TRAVEL COUNSELOR): Home regimen of toujeo 42 units + SSI. -Lantus, Lispro TID AC and SSI -No Juice Diet -Consistent Carb+ 2gm NA diet. -CTM BGL Assessment & Plan (08/01/2022 3:26 PM WORLD TRAVEL COUNSELOR): Home regimen of toujeo 42 units + SSI. Given TR and decreased PO intake, insulin regimen reduced to Lantus 20units. - Continue on 2g Na + DM2 diet - CTM BGL Assessment & Plan (08/01/2022 4:17 AM WORLD TRAVEL COUNSELOR): Home regimen of toujeo 42 units + [...] (10/22/2022): Added automatically from request for surgery [id number] Volume overload 10/06/2022 05/29/2024 Assessment & Plan (10/10/2022 1:09 PM WORLD TRAVEL COUNSELOR): In the setting of LYONS cirrhosis. Diuretics [...] (08/22/2022): Added automatically from request for surgery [id number] Portal vein thrombosis 08/01/202208/22 Assessment & Plan (08/03/2022 1:09 PM WORLD TRAVEL COUNSELOR): -Apixaban 2.5mg BID Assessment & Plan (08/02/2022 2:39 PM WORLD TRAVEL COUNSELOR): -Apixaban 2.5mg BID Assessment & Plan (08/01/2022 3:27 PM WORLD TRAVEL COUNSELOR): -Apixaban 2.5mg BID Assessment & Plan (08/01/2022 4:17 AM WORLD TRAVEL COUNSELOR): Continue home apixaban LYONS (nonalcoholic steatohepatitis) 11/02/2021 07/15/2024 Abnormal mammogram of right breast 11/02/2020 08/22/2022 Preop cardiovascular exam 09/23/2019 Overview (09/23/2019): Added automatically from request for surgery [id number] Colon cancer screening 04/21/201908/22 Overview (04/21/2019): Added automatically from request for surgery [id number] Esophageal varices without bleeding (CMS/HCC) 04/21/20 19 08/22/2022 Overview (04/21/2019): Added automatically from request for surgery [id number] Mass of lower lobe of right lung 03/14/2018 02/24/2025 Cancer Staging:Clinical:Stage Unknown(cT1a, cNX) - Unsigned Steatosis of liver 05/20/2017 alf current use of ant icoagulant therapy 07/26/2016 08/22/2022 Neutropenia 07/14/2015 07/15/2024 Portal vein thrombosis 07/14/201508/22 BMI 45.0-49.9, adult 11/18/2014 024 Abnormal magnetic resonance imaging study 05/20/2014 08/22/2022 Biliary colic 05/10/2014 08/22/2022 Lesion of liver 04/30/2014 08/22/2022 Decreased granulocyte count 01/14/2014 07/15/2024 Lymphopenia 03/17/2013 07/15/2024 Lichen planus 06/03/2012 02/24/2025 Rash 03/25/2012 08/22/2022 Encounters Date Type Department Care Team Description 04/13/2025 Telephone [facility] [address] [facility] [address] Mailstop -[address] [place] [address] KareledaCelsa 04/13/2025 Documentation [facility] [address] [facility] [address] Mailop -[address] [place] [address] Celsa Vargas 04/13/2025 Telephone [facility] [address] [place] [address] [place], [place] [address]op -[address] [place] [address] Chelsea Barker, TYRA 04/13/2025 Results Follow-Up [facility] [address] [place] [address] [place] [address]-[address] [place] [address] Chelsea Barker RN Comprehensive metabolic panel, Protime-INR, Urinalysis reflex to microscopic, Additional followed-up results: 2 04/09/2025 2:05 [place] [address] Metabolic dysfunction-associate d steatohepatitis (MASH) 04/08/2025 Telephone [facility] [address] [place] [address] [place] [address] [place] [address] Chelsea Barker, TYRA 04/08/2025 Telephone [facility] [address] [place] [address] [address] Mailstop [address] [place] [address] Chelsea Barker, RN 04/06/2025 Telephone [facility] [address] [facility] [address] Mailstop -[address] [place] [address] Chelsea Barker, TYRA 03/25/2025 Orders Only [facility] [place] [place] [facility] [address] [place] [address] 5th [place] [address] [place] [address] Uri Casas MD Stage 3b chronic kidney disease (HCC) 03/25/2025 Telephone [facility] [address] [facility] 3401 Mailstop 08-20-936 [place] [address] Chelsea Barker RN 03/24/2025 7:47 AM CDT - 03/24/2025 11:59 PM CDT Hospital Encounter [facility] [address] [place] [address] Lung nodule Discharge Disposition: Discharge to home or self care 03/24/2025 7:47 AM CDT - 03/24/2025 11:59 PM CDT Hospital Encounter [facility] [address] [place] [address] Taiwo Vázquez MD 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; Abnormal liver diagnostic imaging Discharge Disposition: Discharge to home or self care 03/23/2025 8:30 AM CDT Office Visit [facility] [place] [place] [facility] [address] [facility] 5th [place] [address] [place] [address] Stage 3b chronic kidney disease (HCC) (Primary Dx) 03/09/2025 Telephone [facility] [place] [place] [facility] [address] [facility] 5th [place] [address] [place] [address] Blas Fisher MD appt 03/05/2025 Orders Only [facility] Scanning, Provider 03/03/2025 Orders Only [facility] [place] [place] [facility] [address] [facility] 5th [place] [address] [place] [address] Blas Fisher MD Stage 3b chronic kidney disease (HCC) (Primary Dx); Hypertension, unspecified type; Anemia in stage 3b chronic kidney disease (HCC); TR (acute kidney injury); Vitamin D deficiency 02/25/2025 Documentation [facility] [address] [facility] 3401 Mailstop 62-47-963 [place] [address] KareledaCelsa 02/25/2025 Orders Only [facility] Liver [address] [facility] 3401 Mailstop -53-108 [place] [address] SamCelsa 02/24/2025 9:30 AM CDT Office Visit [facility] [place] [place] [facility] [address] [facility] 12th [place] [address] [place] [address] Britany Toribio MD Metabolic dysfunction-associate d steatohepatitis (MASH) (Primary Dx); Other pancytopenia (HCC); Type 2 diabetes mellitus with stage 4 chronic kidney disease, with long-term current use of insulin (HCC); Other cirrhosis of liver (HCC) 02/24/2025 Telephone [facility] Liver [address] [facility] [address] [facility] -02-342 [place] [address] Chelsea Barker RN 02/19/2025 3:00 PM CDT Office Visit [facility] [place] [place] [facility] Metabolism and Lipid [address] [facility] 13th [place] [address] [place] [address] Marina Kennedy MD PhD Type 2 diabetes mellitus with stage 3a chronic kidney disease, unspecified whether intermediate frame tender insulin use (HCC) (Primary Dx); Cirrhosis of liver without ascites, unspecified hepatic cirrhosis type (HCC); Class 3 severe obesity due to excess calories with serious comorbidity and body mass index (BMI) of 40.0 to 44.9 in adult; Primary hypertension; Stage 3b chronic kidney disease (HCC) 02/17/2025 10:00 AM CDT - 02/17/2025 11:59 PM CDT Hospital Encounter [address] [address] ESRD (end stage renal disease) (HCC) Discharge Disposition: Discharge to home or self care 02/11/2025 Telephone [facility] Liver [address] [facility] 3401 Mailstop 36-36-893 [place] [address] Chelsea Barker RN 02/11/2025 Results Follow-Up [facility] [address] [facility] 3401 Mailstop 00-38-993 [place] [address] Chelsea Barker, RN Protime-INR, Comprehensive metabolic panel, eGFR 02/10/2025 4:30 PM CDT Lab [facility] [address] [place] [phone] 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 02/10/2025 Telephone [facility] Liver [address] [facility] 340 Mailstop 59-27-0 [place] [address] Chelsea Barker, TYRA 02/07/2025 Telephone [facility] Liver [address] [facility] 340 Mailstop 20-07-4 [place] [address] Chelsea Barker, TYRA 02/05/2025 Telephone [facility] Liver [address] [facility] 340 Mailstop 22-59-707 [place] [address] Chelsea Barker, TYRA 01/20/2025 10:00 AM CDT - 01/20/2025 11:59 PM CDT Hospital [address] [address] ESRD (end stage renal disease) (HCC) Discharge Disposition: Discharge to home or self care 01/11/2025 3:25 PM CDT Lab [facility] [address] [place] [phone] Cirrhosis of liver without ascites, unspecified hepatic cirrhosis type (HCC) 01/11/2025 Telephone [facility] Liver [address] [facility] 340 Mailstop 65-87-676 [place] [address] Chelsea Barker, RN from Last 3 Months Immunizations Immunization Administration Dates Next Due Hep B Vaccine 01/22/2024,12/18/2023 Influenza, Quadrivalent, Spl it, Intramuscular 05/01/2019,05/26/2015 Influenza, Quadrivalent, Spl it, Preservative Free, Intramuscular 07/02/2023,04/29/2020,05/01/2019,05/09,05/08/2018,05/23/2017,05/17/2016 Influenza, Trivalent, IM (MDV) 04/28/2021,2013 Influenza, Trivalent, Preser vative Free, Intramuscular 05/29/2013 [employer] ([employer]) SARS-CoV-2 Vaccination 10/17/2020 Pneumococcal Conjugate PCV [...] Tobacco: Never Tobacco Cessation:Counseling Given: Not Answered [facility] Utilities Answer Date Recorded In the past 12 months has [employer], gas, oil, or water [employer] threatened to shut off services in your [...] week 10/05/2024 How often do you attend [facility] ch or rastafari services? Never 10/05/2024 Do you belong to any clubs o r organizations such as baptist groups, unions, fraternal or athletic groups, or [...] on file Legal Sex Female 8:22 AM WORLD TRAVEL COUNSELOR Gender Identity Female 11/15/2021 2:30 AM [...] stage 3a chronic kidney disease, unspecified whether snf insulin use (HCC) HLA ANTIBODY SCREEN BY [...] HEPATITIS C ANTIBODY Routine 06/16/2023 6:09 AM WORLD TRAVEL COUNSELOR COLONOSCOPY 05/30/2022 9:28 AM CDT ALBUMIN CREATININE RATIO, URINE Routine 03/01/2021 2:45 PM CDT Type 2 diabetes mellitus without complication, unspecified whether snf insulin use (HCC) from Last 3 Months [...] LAB BLOOD ORDERABLES Fi nal Result CHARISSA [address] [facility] Department [place] [address] * (ABNORMAL) Urinalysis reflex to microscopic (04/09/2025 2:25 PM CDT) Color, ur Yellow Yellow Clarity, ur Clear Clear [facility] Specific gravity, ur 1.009 1.003 - 1.030 [facility] pH, urine 6.5 [facility] Comment: Interpretive Data U rine pH is affected by diet, medications, systemic acid-base disturbances, and renal tubular function. pH may affect urinary stone formation. For example, urine pH below 6.0 may help reduce the tendency for calcium phosphate stones and pH greater than 6.0 may reduce the tendency for uric acid stone formation. Source: [facility] Current Interpretive Data was last revised on 2017 Protein, ur ql Negative Negative [facility] Glucose, ur ql Negative Negative [facility] Ketones, ur Negative Negative [facility] Bilirubin, ur Negative Negative [facility] Blood, ur Negative Negative [facility] Urobilinogen, ur <2.0 <2.0 mg/dL [facility] Nitrite, ur Negative Negative [facility] Leukocyte esterase, ur 1+(A) Negative [facility] UA reflex comment Reflex to microscopic UA will be performed. [facility] Urine 04/09/2025 2:25 PM CDT 04/09/2025 6:28 PM CDT us Rebecca Calloway MD LAB URINE ORDERABLES Fi nal Result [place] [id number] [facility] Department [place] [address] * (ABNORMAL) Urinalysis, microscopic only (04/09/2025 2:25 PM CDT) WBC, ur 0-5 0 - 5 /HPF RBC, ur 0-2 0 - 2 /HPF [facility] Epithelial cells, squamous, ur 1-5 0 - 5 /HPF [facility] Bacteria, ur Trace(A) [facility] Mucous, ur Present(A) [facility] Hyaline casts, ur 1-5 0 - 10 /LPF [facility] Urine 04/09/2025 2:25 PM CDT 04/09/2025 6:28 PM CDT Rebecca Calloway MD LAB URINE ORDERABLES Fi nal Result Performing Organization Address [facility] de Phone Number [address] [place] [address] * (ABNORMAL) Protime-INR (04/09/2025 2:25 PM CDT) [facility] PT 16.50(H) 12.00 - 14.60 sec INR 1.31(H) 0.90 - 1.20 [facility] Comment: Interpretive data Oral anticoagulant therapeutic ranges: Venous thromboembolism prophylaxis or treatment: 2.0-3.0 CARDIOLOGY Standard range: 2.0-3.0 High-intensity range: 2.5-3.5 Refer to indication-specific guidelines for appropriate target ranges for prosthetic heart valve replacement. Current interpretive data was last revised on 2019. Blood 04/09/2025 2:25 PM CDT 04/09/2025 6:28 PM CDT Rebecca Calloway MD LAB BLOOD ORDERABLES Fi nal Result Performing Organization Address [facility] Co de Phone Number [address] [place] [address] * (ABNORMAL) Comprehensive metabolic panel (04/09/2025 2:25 PM CDT) [facility] Sodium 133(L) 135 - 145 mmol/L Potassium, pl 3.5 3.3 - 4.9 mmol/L [facility] Chloride 95(L) 97 - 110 mmol/L [facility] CO2 27 22 - 32 mmol/L [facility] Anion gap 11 2 - 15 mmol/L [facility] BUN 34(H) 6 - 25 mg/dL [facility] Creatinine 1.88(H) 0.60 - 1.10 mg/dL [facility] Glucose 222(H) 70 - 199 mg/dL [facility] Comment: [...] 2022. Calcium 9.1 8.5 - 10.3 mg/dL [facility] Bilirubin, total 2.3(H) 0.1 - 1.2 mg/dL [facility] Protein, pl 6.2(L) 6.5 - 8.5 g/dL [facility] Albumin 3.2(L) 3.5 - 5.0 g/dL [facility] Alk phos 96 40 - 130 Units/L [facility] ALT 22 7 - 45 Units/L [facility] AST 39 10 - 45 Units/L [facility] Blood 04/09/2025 2:25 PM CDT 04/09/2025 6:28 PM CDT us Rebecca Calloway MD LAB BLOOD ORDERABLES Fi nal Result CHARISSA ESCOBAR [address] [facility] Department [place] [address] * CT Chest WO Contrast (03/24/2025 10:22 [...] * POCT glucose (02/19/2025 2:38 PM CDT) [facility] Glucose Blood, POC 153 Normal Fasting 70 - 100, Random <200 mg/dL Blood 02/19/2025 2:38 PM CDT Marina Kennedy MD PhD POINT OF CARE TEST ORDERA BLES Final Result * HLA Antibody Screen by PRA or SAB per Schedule (Class I and Class II) (02/17/2025 10:00 AM CDT) Blood 02/17/2025 10:0 0 AM CDT Narrative [facility] - WORLD TRAVEL COUNSELOR Sample received in lab and stored. No [...] ORDERABLES Fin al Result Performing Organization Address City/[facility]/ZIP Co de Phone Number [facility] [address] [facility] [place] [address] * (ABNORMAL) Protime-INR (02/10/2025 2:13 PM CDT) PT 14.8(H) 9.7 - 13.0 sec INR 1.36(H) 0.90 - 1.20 CHARISSA [facility] Comment: Interpretive data Oral anticoagulant therapeutic ranges: Venous thromboembolism prophylaxis or treatment: 2.0-3.0 CARDIOLOGY Standard range: 2.0-3.0 High-intensity range: 2.5-3.5 Refer to indication-specific guidelines for appropriate target ranges for prosthetic heart valve replacement. Current interpretive data was last revised on 2019. Blood 02/10/2025 2:13 PM CDT 02/10/2025 2:55 PM CDT us Taiwo Vázquez MD LAB BLOOD ORDERABLES Fin al Result [facility] [address] [facility] [place] [address] * (ABNORMAL) Comprehensive metabolic panel (02/10/2025 2:13 PM CDT) Sodium 142 135 - 145 mmol/L Potassium, pl 3.9 3.3 - 4.9 mmol/L [facility] Chloride 105 97 - 110 mmol/L [facility] CO2 31 22 - 32 mmol/L [facility] Anion gap 6 2 - 15 mmol/L [facility] BUN 16 6 - 25 mg/dL [facility] Creatinine 1.68(H) 0.60 - 1.10 mg/dL [facility] Glucose 119 70 - 199 mg/dL [facility] Comment: Interpretive Data Fasting glucose >/= [...] Calcium 8.8 8.5 - 10.3 mg/dL [facility] Bilirubin, total 1.6(H) 0.1 - 1.2 mg/dL [facility] Protein, pl 5.9(L) 6.5 - 8.5 g/dL [facility] Albumin 3.2(L) 3.5 - 5.0 g/dL [facility] Alk phos 99 40 - 130 Units/L [facility] ALT 20 7 - 45 Units/L [facility] AST 38 10 - 45 Units/L [facility] Blood 02/10/2025 2:13 PM CDT 02/10/2025 3:03 PM CDT Taiwo Vázquez MD LAB BLOOD ORDERABLES Fin al Result [facility] [address] [facility] [place] [address] * HLA Antibody Screen by PRA or SAB per Schedule (Class I and Class II) (01/20/2025 10:00 AM CDT) Blood 01/20/2025 10:0 0 AM CDT Narrative HISTOTRAC - WORLD TRAVEL COUNSELOR Sample received in lab. Single Antigen Antibody [...] a method developed and validated by the [facility] HLA laboratory based on an FDA-approved IVD kit ([employer]creen Single-Antigen, [email or web address], [place], [place]). All patient serum samples are pretreated with EDTA before the screen to prevent complement interference. Additional serum treatments, such as adsorption and DTT treatment, may be performed as indicated. Interpretive comments: Low risk: MFI [id number]. Moderate risk: MFI [id number]. Increased risk: MFI >/= 5000. The presence [...] antigens to avoid. Testing performed at the [facility], [address] [place] [address], 5th floor, [place], [address]. CLIA # [id number]. Rani Smith, Ph.D., Warehouse Delivery Driver, [facility] Aurelio Palafox M.D., Ph.D., Server Programmer, [facility] Norma Gronowski, Ph.D., CLIA Server Programmer, [facility] Current methodology and interpretive comments last revised on 09/06/2022. Timothy Pardo MD LAB BLOOD ORDERABL ES Final Result Performing Organization Address [facility]/ZIP Co de Phone Number [facility] * (ABNORMAL) [...] BLOOD ORDERABLES Final Result Performing Organization Address City/[facility]/ZIP Co de Phone Number CHARISSA UDNNE [facility] [place] [address] * (ABNORMAL) Protime-INR (01/11/2025 1:08 PM CDT) [...] MD LAB BLOOD ORDERABLES Final Result [facility] [place] [address] * (ABNORMAL) Comprehensive metabolic panel (01/11/2025 1:08 PM CDT) Sodium 141 135 - 145 mmol/L Potassium, pl 3.6 3.3 - 4.9 mmol/L [facility] Chloride 105 97 - 110 mmol/L [facility] CO2 29 22 - 32 mmol/L [facility] Anion gap 7 2 - 15 mmol/L [facility] BUN 17 6 - 25 mg/dL [facility] Creatinine 1.56(H) 0.60 - 1.10 mg/dL [facility] Glucose 150 70 - 199 mg/dL [facility] Comment: Interpretive Data Fasting glucose >/= [...] 2022. Calcium 8.7 8.5 - 10.3 mg/dL [facility] Bilirubin, total 1.9(H) 0.1 - 1.2 mg/dL [facility] Protein, pl 6.4(L) 6.5 - 8.5 g/dL [facility] Albumin 3.2(L) 3.5 - 5.0 g/dL [facility] Alk phos 97 40 - 130 Units/L [facility] ALT 17 7 - 45 Units/L [facility] AST 32 10 - 45 Units/L [facility] Blood 01/11/2025 1:08 PM CDT 01/11/2025 1:45 PM CDT Molina Charles MD LAB BLOOD ORDERABLES Final Result Performing Organization Address [facility] de Phone Number [facility] [place] [address] * Hemoglobin A1c (11/25/2024 9:40 AM CDT) Hgb A1C 5.5 4.0 - 5.6 % Estimated Average Glucose 111 mg/dL [facility] Comment: The ADA recommends reporting an [...] ORDERABLES Fin al Result Performing Organization Address [facility] Co de Phone Number [facility] [place] [address] * Pap and High Risk HPV and Genotyping (Cytology Component) (04/28/2024 10:41 AM CDT) Thin prep (Pap test) 04/28/2024 10:41 AM CDT 04/28/2024 1:00 PM CDT Narrative PATHOLOGY [facility] - 05/04/2024 4:21 PM CDT EPIC results best viewed via link to PDF [facility] [place] [address] Note to Patients: This report may contain [...] Gender: Michelle : 1960 (Age: 63) Address: [address] [place], [place] [id number] Hospital #: [id number] Service: Medical Location: [place] [address] Patient Type: [facility] Inpatient Taken: 04/28/2024 Received: 04/28/2024 [...] this test have been verified by the [facility] Molecular Infectious Disease laboratory. Correlate with reported cytology results, as applicable. Interpretive data last revised 23 jhosie/05/04/2024 16:21 JEANNIE Worthington([facility]) Report Electronically Reviewed and Signed Out By JEANNIE Worthington([facility]) 05/04/2024 16:21:37 Cervicovaginal Cytology (Pap Test) Disclaimer: The Pap test is a screening test used to detect cervical cancer and its precursors; it is not a diagnostic procedure. False negative and false positive results do occur. Pap test results should be interpreted in the context of pertinent clinical information and biopsy results as indicated. [facility] Clinical Laboratory Improvement Amendments (CLIA) mandate that cytologic and histologic results be correlated for laboratory quality assurance monitor body & improvement standards. FOR ALL HIGH-GRADE CASES [...] determined by the Surgical Pathology Department at [facility] as part of an ongoing quality process auditor program and in compliance with federally mandated [...] determined by the Surgical Pathology Department of [facility]. It has not been cleared or approved by the U. S. Food and Drug Administration. us Eladio Carey MD LAB CYTOLOGY ORDERABLES Final Result PATHOLOGY [facility] 3rd Floor [place], [place] [phone] * Screening Mammogram Bilateral W Pal (04/27/2024 1:55 PM CDT) Anatomical Region Laterality Modality Breast Bilateral Mammography Narrative 04/27/2024 1:52 PM CDT Mammogram Technique: Bilateral Digital Breast Tomosynthesis, Bilateral C-view 2D Screening mammogram. Views obtained: bilateral craniocaudal and bilateral mediolateral oblique. Computer Aided Detection was performed. Mammogram Findings: The present examination has been compared to prior imaging studies performed at [facility] on 05/15/2021 and 12/06/2021. There are [...] compared to prior imaging studies performed at [facility] on 05/15/2021 and 12/06/2021. There are [...] revised on 2018. Triglycerides 43 <=149 mg/dL [facility] Comment: Interpretive Data Ages < or [...] revised on 2018. HDL 64 >=40 mg/dL [facility] Comment: Interpretive Data Ages < or [...] 2018. LDL, calculated 47 <=129 mg/dL [facility] Comment: Interpretive Data Ages < [...] on 2024. Non-HDL Cholesterol 58 mg/dL [facility] Comment: Interpretive Data Ages < or [...] revised on 2018. Chol/HDL ratio 2 [facility] Blood 04/22/2024 12:5 8 AM CDT 04/22/2024 3:00 AM CDT us John Paul Reddy MD LAB BLOOD ORDERABLES Final Resul t Performing Organization Address [facility]/State/ZIP Co de Phone Number [facility] [place] [address] * Hepatitis C antibody Blood (06/16/2023 6:09 AM WORLD TRAVEL COUNSELOR) Hep C Ab Nonreactive Nonreactive [facility] Comment:Antibodies to HCV no t detected. Does NOT exclude the possibility of recent exposure to HCV. Current interpretive data was last revised on 22 Blood 06/16/2023 6:09 AM WORLD TRAVEL COUNSELOR 06/16/2023 6:35 AM WORLD TRAVEL COUNSELOR us Alejandro Frazier MD LAB MICROBIOLOGY - GENERAL ORDERABLES Final Result [facility] [place] [address] * COLONOSCOPY (05/30/2022 9:28 AM CDT) Anatomical [...] The scope was passed under direct vision.The [facility] [id number] endoscope was introducedthrough the anus and [...] On: 05/30/2022 9:28 AM Recognized by the [place] [employer] for promoting quality in endoscopy us Pat Robins MD ENDOSCOPY PROCEDURES Ju l Result * Albumin Creatinine Ratio, Urine (03/01/2021 2:45 PM CDT) Albumin Ur <12.0 mg/L [facility] Comment: Interpretive Data No reference range established. Current interpretive data was last revised 2018. Creatinine Ur 59.5 mg/dL [facility] Comment: Interpretive Data No reference range established. Current interpretive data was last revised 2018. Albumin Creatinine Ratio, Ur <20 1 - 29 mg/g [facility] Urine 03/01/2021 2:45 PM CDT 03/01/2021 3:41 PM CDT Oly Baker MD LAB URINE ORDER RAVEN Final Result [facility] [place] [address] from Last 3 Months or Most Recently Relevant to Health Maintenance Insurance * Guarantor: Aleah Levine Account Type Relation to Patient Date of Phone Billing Address Personal/Family Self 1960 [facility] [place] [address] [facility] E[place] [facility] BLUE ACCESS [facility] Member Subscriber Plan / Payer ( fective 2021-Present) Name:Aleah Levine Relation to Subscriber:Self Name:Aleah Levine Payer ID:[id number] (NAIC) Type:ditlo Address: [address] [employer] [facility] MEDICARE [facility] Address: [address] [address] [place] [address] [employer] RISK Advance Directives For more information, please contact: [phone] * Full Code (Latest Code Status on [...] 8:35 AM 02/05/2023 7:[address] Worker Relationship Specialty Start Date End Date Maddy Romano MD [address] [place] [address] PCP - General 09/28/16 Manas Ibarra MD [address] [place] [address] Referring Physician Thoracic Surgery 11/05/18 Zion Barton MD [address] [place] [address] Radiation Oncologist Radiation Oncology 05/05/19 Molina Charles MD [address] [facility] [address] [place] [address] Referring Physician Transplant Hepatology 12/15/20 Karuna Maria OT Occupational Therapist Occupational Therapy 09/20/22 Renu Treviño NP [address] [facility] [address] [place] [address] Nurse Practitioner Radiation Oncology 11/08/22 Eladio Mcrae MD [address] [place], [place] [id number] Referring Physician Obstetrics and Gynecology 11/15/22 Marcy Schroeder, RN [address] [place] [address] Conservation Technician 04/27/24 Chelsea Barker, triage technicianConservation Technician 11/13/24
[2025-04-13 12:23] LABS: Add Urine Microscopic? NO; Appearance Urine Clear (Clear); Glucose Urine UA Negative (Negative); Leukocyte Esterase Ur Negative LEU/UL (Negative); Nitrate Urine Negative (Negative); Specific Grav Ur 1.010 (1.010-1.020)
[2025-04-13 12:45] LABS: Thyroid Stimulating Hormone 1.490 uIU/mL (0.465-4.680)
[2025-04-13] MEDS: SODIUM CHLORIDE 0.9% IV 1,000 ML 999 ML IV CONT (14:20)
[2025-04-13] MEDS: SODIUM CHLORIDE 0.9% IV 1,000 ML 125 ML IV CONT (15:57)
--- NOTE | 2025-04-13 16:25 | PC.NURSE ---
PT at bedside.
[2025-04-13] MEDS: LACTULOSE 20 GM/30 ML UDC PO (17:17)
[2025-04-13] MEDS: INSULIN GLARGINE (*BKC) 1,000 UNITS/10 ML VIAL 44 UNITS SUB-Q (17:17)
--- NOTE | 2025-04-13 17:24 | PC.NURSE ---
Dinner tray delivered. Pt denies any additional needs.
--- NOTE | 2025-04-13 18:50 | ADMGEN ---
This patient, Aleah Levine, was admitted to 2nd Floor Room 210-1. Patient/family oriented to hospital policies and general routines including ID bracelet, bed and alarms, visiting hours, pain management, procedures, bathroom and other care routines, personal items, smoking policy, room service/diet, and visiting hours. Information on how to activate the Rapid Response Team has been discussed. Patient/Family are encouraged to report perceived risks to care and to ask questions if they do not understand what they are told or what they should do. Pt ambulatory with steady gait. Has some speech slurring, however, pt and pt's spouse state this is her baseline. Pt denies any current weakness/numbness/tingling to bilateral lower extremities.
[2025-04-13] MEDS: CHOLESTYRAMINE (W/ SUGAR) 4 GM POWD.PACK PO (20:51)
[2025-04-13] MEDS: ONDANSETRON INJ 4 MG/2 ML VIAL IV PUSH (20:55)
--- NOTE | 2025-04-13 21:00 | PC.NURSE ---
HS blood glucose is 232 per her Nexcom
[2025-04-14] VITALS: BP 141/49; PULSE 90; RESP 18; TEMP 37.1; O2SAT 98
[2025-04-14] MEDS: SODIUM CHLORIDE 0.9% IV 1,000 ML 125 ML IV CONT (02:46)
[2025-04-14 05:29] LABS: Hematocrit 29.9 % (35.0-49.0); Hemoglobin 10.0 g/dL (12.0-15.0); Immature Platelet Fraction Pct 2.3 % (1.0-7.0); Mean Corpuscular HGB Conc 33.4 g/dL (32-36); Mean Corpuscular Hemoglobin 31.0 pg (27.0-31.0); Mean Corpuscular Volume 92.6 fL (78.0-102.0); Platelet Count Result 60 K/mm3 (150-420); Red Blood Count 3.23 M/mm3 (4.20-5.40); White Blood Count 5.0 K/mm3 (4.8-10.8)
[2025-04-14 05:40] LABS: Ammonia 108 umol/L (9-30)
[2025-04-14 05:55] LABS: Anion Gap 6 mmol/L (4-12); Carbon Dioxide 28 mmol/L (22-30); Chloride 98 mmol/L (98-107); Potassium 3.6 mmol/L (3.4-5.0); Sodium 132 mmol/L (137-145)
[2025-04-14 05:56] LABS: Alanine Aminotransferase 22 U/L (6-35); Aspartate Amino Transferase 37 U/L (14-36); Bilirubin,Total 2.3 mg/dL (0.2-1.3); Blood Urea Nitrogen 36 mg/dL (7-17); Calcium 8.5 mg/dL (8.4-10.2); Estimated CRCL calculation 41 ml/min; Estimated Glomerular Filt Rate 32; Glucose 163 mg/dL (65-110); Magnesium 1.9 mg/dL (1.6-2.3); Osmolality Calculated 286 mOsm/kg (285-295)
[2025-04-14 05:57] LABS: Albumin Level 2.8 g/dL (3.5-5.1); Alkaline Phosphatase 73 U/L (38-126); Total Protein 5.5 g/dL (6.3-8.2)
[2025-04-14 05:59] LABS: Band Neutrophils Percent 0 % (0-6); Basophils Absolute Manual 0.10 K/mm3 (0-0.1); Basophils Percent Manual 2 % (0-1); Eosinophils Absolute Manual 0.45 K/mm3 (0.02-0.50); Eosinophils Percent Manual 9 % (1-6); Lymphocytes Absolute Manual 0.95 K/mm3 (1.1-4.5); Lymphocytes Percent Manual 19 % (18-44); Monocytes Absolute Manual 0.55 K/mm3 (0.1-0.90); Monocytes Percent Manual 11 % (3-9); Neutrophils Absolute Manual 2.95 K/mm3 (1.3-6.7); Neutrophils Percent Manual 59 % (46-73); Schistocytes None Seen; Total Cells Counted 100
[2025-04-14 06:00] LABS: Anisocytosis 1+; Hypochromasia 2+; Poikilocytosis 1+
[2025-04-14 08:00] VITALS: BP 101/76; PULSE 78; RESP 18; TEMP 36.9; O2SAT 100
--- NOTE | 2025-04-14 08:00 | PC.NURSE ---
Pt refused poc blood glucose. Dexcom currently reading 172.
--- NOTE | 2025-04-14 08:33 | P.SS_ITS ---
Same Day Admit/Disch: HPI History of Present Illness Chief complaint: confusion/weakness Narrative: Aleah Levine is a 64 year old female Presented to the emergency room with complaints of overall not feeling well, confusion increased, restlessness and poor sleeping. patient reported past medical history of liver failure secondary to cirrhosis currently on transplant list at [facility], hypertension, CKD, thrombocytopenia, and diabetes. patient had denied any chest pain, shortness a breath, nausea, vomiting but did endorse diarrhea likely secondary to her lactulose. patient had been referred to the emergency department to evaluate her labs from her primary care physician. In the ED: in the emergency department patient was found to acute on chronic kidney failure with a creatinine of 1.8 and ammonia level of 80. head CT with no acute findings, and CXR with no acute cardiopulmonary disease. [facility] Past Medical History Medical History Hyperammonemia Liver failure Confusion Cirrhosis C. difficile colitis (~12/2019) Lung cancer Portal vein thrombosis HTN (hypertension) Thrombocytopenia Diabetes mellitus Surgical History Surgical History H/O sinus surgery History of liver biopsy History of endometrial ablation Family History Family History Mother Family history of malignant neoplasm of breast in first degree relative Father Family history of malignant neoplasm of esophagus Mother Cerebrovascular accident Sibling Hypertension Congestive heart failure Social History Social History Smoking packs per day: 0.5 Smoking cigarettes per day: 10.0 Years smoked: 51 Smoking pack-years: 25.50 Smoking status: Never smoker Tobacco type: cigarettes Second hand tobacco smoke exposure: Yes Smoking end date: 10/10/21 Alcohol intake: current Drinks per week: 1 Substance use: unknown Substance use type: does not use Lack of Transportation: No Lack of Food: Never True Current Housing: I Have Housing Concerned About Future Housing: No Difficulty Paying Gas/Electric Bills: No Difficulty Paying for Meds: No Currently Unemployed: No Education: Bachelor's Degree Difficulty w/ Childcare or Family Care: No Gender identity (if verbalized by the patient): Female Spiritual care concerns: No Same Day Admit/Disch: Med Pre-admit Medications Home Medications ?Medication ?Instructions ?Recorded ?Confirmed ?Type pantoprazole 40 mg tablet,delayed 40 mg PO DAILY #30 t abs 02/16/23 04/13/25 Rx release ondansetron HCl 4 mg tablet 4 mg PO DAILY PRN nausea a nd 04/01/24 04/13/25 History vomiting bumetanide 1 mg tablet 2 mg PO DAILY 09/24/2404/13 History insulin glargine 100 unit/mL 44 unit subcut QPM DIABET ES 09/24/24 04/13/25 History subcutaneous solution (Lantus U-100 Insulin) insulin lispro 100 unit/mL 8 unit subcut DAILY 5 04/13/25 History subcutaneous solution (Humalog U-100 Insulin) lactulose 20 gram/30 mL oral 0.03 g PO TID 09/24/24 History solution spironolactone 100 mg tablet 100 mg PO DAILY 09/24/24 04/13/25 History thiamine mononitrate (vit B1) 100 100 mg PO DAILY 09/1204/13/25 History mg tablet ciclopirox 8 % topical solution 1 applic topical DAILY 04/13/25 04/13/25 History metolazone 10 mg tablet 10 mg PO .Bi-weekly 04/13/25 04/13/25 History rifaximin 550 mg tablet (Xifaxan) 550 mg PO BID 04/13/25 History tirzepatide 5 mg/0.5 mL 5 mg subcut WEEKLY 04/13/25 04/13/25 History subcutaneous pen injector (Mounjaro) Review of Systems Review of Systems All systems reviewed & are unremarkable except as noted in HPI and below Exam Const: General: comfortable and no acute distress HENMT: Ears: TM's normal bilaterally Face/Nose/Sinus: Normal nares present Mouth: Yes moist mucous membranes Eyes: General: appearance normal, both eyes and all related structures Sclera: sclerae normal Pupils: Equal, round and reactive pupils present EOM: EOMs intact bilaterally Neck: Neck: supple and no JVD Resp: Effort & Inspection: normal respiratory effort Auscultation: clear to auscultation bilaterally Cardio: Rate: regular rate Rhythm: regular rhythm GI: GI Palp: Yes Soft to palpation Auscultation: normal bowel sounds Skin: General skin exam: normal color Neuro: General: gait normal Speech: normal speech Other: Patient was alert and oriented answered all questions appropriately. Extrem: General: edema bilateral (BLE 2+) Psych: Mental Status: mental status grossly normal Affect: normal affect DS: Data Data Completed and Pending Labs on day of discharge: Labs from last 24 hours 04/14/25 04/13/25 04/13/25 05:09 12:18 11:40 WBC 5.0 RBC 3.23 L Hgb 10.0 L Hct 29.9 L MCV 92.6 MCH 31.0 MCHC 33.4 RDW 14.8 H Plt Count 60 L MPV 11.9 H Immature Gran % (Auto) Not Reportable Neut % (Auto) Not Reportable Lymph % (Auto) Not Reportable Ren[place] % (Auto) Not Reportable Eos % (Auto) Not Reportable Baso % (Auto) Not Reportable Lymph # (Auto) Not Reportable [place] # (Auto) Not Reportable Eos # (Auto) Not Reportable Baso # (Auto) Not Reportable Abs Immat Gran (auto) Not Reportable Absolute Neuts (auto) Not Reportable Absolute Nucleated RBC Not Reportable Total Counted 100 Neutrophils % (Manual) 59 Band Neutrophils % 0 Lymphocytes % (Manual) 19 Monocytes % (Manual) 11 H Eosinophils % (Manual) 9 H Basophils % (Manual) 2 H Nucleated RBC % Not Reportable Abs Neuts (Manual) 2.95 Abs Lymphs (Manual) 0.95 L Abs Monocytes (Manual) 0.55 Absolute Eos (Manual) 0.45 Abs Basophils (Manual) 0.10 Platelet Estimate Decreased % Immature Plt Fraction 2.3 Hypochromasia 2+ Poikilocytosis 1+ Anisocytosis 1+ Schistocytes None seen PT INR APTT Sodium 132 L Potassium 3.6 Chloride 98 Carbon Dioxide 28 Anion Gap 6 BUN 36 H Creatinine 1.63 H Estim Creat Clear Calc 41 Estimated GFR 32 L Glucose 163 H POC Capillary Glucose 195 H Calculated Osmolality 286 Calcium 8.5 Magnesium 1.9 Total Bilirubin 2.3 H AST 37 H ALT 22 Alkaline Phosphatase 73 Ammonia 108 H Total Creatine Kinase Total Protein 5.5 L Albumin 2.8 L TSH Urine Color Light yellow Urine Appearance Clear Urine pH 7.0 Ur Specific Alpine 1.010 Urine Protein Negative Urine Glucose (UA) Negative Urine Ketones Negative Ur Blood (Man) Negative Urine Nitrate Negative Urine Bilirubin Negative Urine Urobilinogen 0.2 Leukocyte Esterase Rfl Negative 04/13/25 04/13/25 11:37 11:36 WBC 5.1 RBC 3.74 L Hgb 11.6 L Hct 34.5 L MCV 92.2 MCH 31.0 MCHC 33.6 RDW 14.9 H Plt Count 68 L MPV 11.1 Immature Gran % (Auto) 0.2 H Neut % (Auto) 57.2 Lymph % (Auto) 20.8 Renville % (Auto) 12.1 H Eos % (Auto) 9.1 H Baso % (Auto) 0.6 Lymph # (Auto) 1.07 L Ren[place] # (Auto) 0.62 Eos # (Auto) 0.47 Baso # (Auto) 0.03 Abs Immat Gran (auto) 0.01 H Absolute Neuts (auto) 2.94 Absolute Nucleated RBC 0.00 Total Counted Neutrophils % (Manual) Band Neutrophils % Lymphocytes % (Manual) Monocytes % (Manual) Eosinophils % (Manual) Basophils % (Manual) Nucleated RBC % 0.0 Abs Neuts (Manual) Abs Lymphs (Manual) Abs Monocytes (Manual) Absolute Eos (Manual) Abs Basophils (Manual) Platelet Estimate % Immature Plt Fraction 2.3 Hypochromasia Poikilocytosis Anisocytosis Schistocytes PT 11.8 INR 1.1 APTT 25.3 Sodium 133 L Potassium 3.3 L Chloride 95 L Carbon Dioxide 31 H Anion Gap 7 BUN 38 H D Creatinine 1.84 H Estim Creat Clear Calc 37 Estimated GFR 28 L Glucose 204 H POC Capillary Glucose Calculated Osmolality 291 Calcium 9.4 Magnesium Total Bilirubin 2.4 H AST 42 H ALT 27 Alkaline Phosphatase 90 Ammonia 84 H Total Creatine Kinase 67 Total Protein 6.4 Albumin 3.4 L TSH 1.490 Urine Color Urine Appearance Urine pH Ur Specific Alpine Urine Protein Urine Glucose (UA) Urine Ketones Ur Blood (Man) Urine Nitrate Urine Bilirubin Urine Urobilinogen Leukocyte Esterase Rfl Imaging Radiologist's impression: EXAM: CT brain wo con - 04/13/2025 11:45 CDT History: 64 years old Female with more confused COMPARISON: 09/24/2024 PROCEDURE: CT of the head without contrast. Axial, sagittal and coronal reformatted planes were evaluated. Automatic exposure control was used for this study. FINDINGS: BRAIN PARENCHYMA: No acute hemorrhage. No mass effect or herniation. Bear-white matter differentiation is maintained. Mild chronic volume loss. Scattered hypodensities in subcortical and periventricular white matter, likely representing chronic microvascular ischemic changes in this age group. Atherosclerotic calcification of the intracranial vessels is noted. VENTRICLES/ EXTRA-AXIAL SPACES: No hydrocephalus or extra-axial fluid collection. EXTRACRANIAL STRUCTURES: No calvarial fracture. IMPRESSION: No evidence for acute intracranial hemorrhage or calvarial fracture. c: Maddy Romano MD; Tiarra Johnson MD~ EXAMINATION: XR chest 1V portable DATE: 04/13/2025 12:06 INDICATION: Weakness TECHNIQUE: frontal view of the chest was obtained. COMPARISON: Chest radiograph dated 09/24/2024 FINDINGS: Unchanged mild eventration of the right hemidiaphragm. The lungs are clear with no focal airspace opacities, pulmonary edema, pleural effusion or pneumothorax. The cardiomediastinal silhouette is normal. Old fracture deformity at the right humeral neck. IMPRESSION: 1. No acute cardiopulmonary disease. DS: Summary Hospital Course Reason for hospitalization: Increased confusion/Weakness/A/C CKD/ hepatic encephalopathy Hospital Course: Admission: Aleah Levine is a 64 year old female Presented to the emergency room with complaints of overall not feeling well, confusion increased, restlessness and poor sleeping. patient reported past medical history of liver failure secondary to cirrhosis currently on transplant list at [facility], hypertension, CKD, thrombocytopenia, and diabetes. patient had denied any chest pain, shortness a breath, nausea, vomiting but did endorse diarrhea likely secondary to her lactulose. patient had been referred to the emergency department to evaluate her labs from her primary care physician. In the ED: in the emergency department patient was found to acute on chronic kidney failure with a creatinine of 1.8 and ammonia level of 80. head CT with no acute findings, and CXR with no acute cardiopulmonary disease. Hospital course: patient had been admitted to the medical unit for observation and until IV hydration for her dehydration and acute on chronic kidney disease. She was also treated for her hepatic encephalopathy secondary to her liver failure from cirrhosis. patient received IV fluids overnight with improvement her creatinine at 1.67 from 1.8 however after review of chart patient's baseline is around 2.0. her initial ammonia level was 80 resumed her lactulose t.i.d. bumped a little to 108. upon evaluation patient alert and oriented answered a ll questions appropriately denied any chest pain, shortness a breath, nausea, vomiting and overall stated she was feeling better. patient is aware that her intermittent increased confusion likely secondary to her hepatic encephalopathy and ammonia levels recommended that she could increase her lactulose to q.i.d. as well as encouraged oral hydration due to GI loss from diarrhea from the lactulose. was able to provide gentle IV hydration however needed to monitor for any fluid overload recommended she resume her spironolactone and Bumex as indicated at home she can follow up with her primary care physician as well as her liver transplant team at [facility]. Status at Discharge Functional status at discharge: independent ambulation Overall status at discharge: patient is back to baseline Time Spent with Patient Time attestation: Total time spent providing and/or coordinating discharge services: Time spent: Greater than 30 minutes DS: Admitting Diagnosis Discharge Date 04/14/2025 Admitting Diagnosis acute on chronic kidney disease, hepatic encephalopathy, dehydration DS: Discharge Diagnosis Discharge Diagnosis (1) HTN (hypertension): Qualifiers: Hypertension type: unspecified Qualified Code(s): I10 - Essential (primary) hypertension Code(s): I10 - Essential (primary) hypertension Status: Acute (2) Thrombocytopenia: Code(s): D69.6 - Thrombocytopenia, unspecified Status: Acute (3) Diabetes mellitus: Qualifiers: Diabetes mellitus complication status: without complication Diabetes mellitus shelter insulin use: without director long term care use Diabetes mellitus type: type 2 Qualified Code(s): E11.9 - Type 2 diabetes mellitus without complications Code(s): E11.9 - Type 2 diabetes mellitus without complications Status: Acute (4) Hyperammonemia: Code(s): E72.20 - Disorder of urea cycle metabolism, unspecified Status: Acute (5) Acute hepatic encephalopathy: Code(s): K72.00 - Acute and subacute hepatic failure without coma Status: Acute (6) Cirrhosis of liver: Code(s): K74.60 - Unspecified cirrhosis of liver Status: Acute (7) Liver failure: Code(s): K72.90 - Hepatic failure, unspecified without coma Status: Acute (8) Acute renal failure superimposed on stage 3 chronic kidney disease: Code(s): N17.9 - Acute kidney failure, unspecified; N18.30 - Chronic kidney disease, stage 3 unspecified Status: Acute (9) Hypokalemia: Code(s): E87.6 - Hypokalemia Status: Acute Discharge Plan Discharge Attending physician on discharge: Jt Chavez Discharging Clinician: Ragini Landers Anticipated Discharge Date/Time: 04/14/25 08:45 Patient Disposition: Home Activity: may shower and as tolerated Diet: low sodium Discharge Instructions: 1). hepatic encephalopathy * continue your lactulose at home may take 4 times a day * resume your diuretics including Bumex and spironolactone * follow-up with your liver transplant team/ academic affairs vice president at [facility] as scheduled * follow up with primary care physician as scheduled * recommend low-sodium diet to avoid fluid overload 2). acute on chronic renal failure * encourage oral hydration due to GI losses from your diuretics and lactulose * follow-up labs as indicated for renal function monitoring How can you care for yourself at home? ? Keep track of any new symptoms or changes in your symptoms. ? Rest until you feel better. ? Be safe with medicines. Take your medicines exactly as prescribed. Call your doctor if you think you are having a problem with your medicine. ? Do not drive after taking a prescription pain medicine. ? Ensure to follow-up with primary care physician as indicated and provide updated medication list provided to you at discharge. When should you call for help? Call 911 anytime you think you may need emergency care. For example, call if: ? You passed out (lost consciousness). Call your doctor now or seek immediate medical care if: ? You have new symptoms like fever, difficulty breathing, Chest pain, vomiting, or rash. ? You have new or different pain. ? You are confused and are having trouble thinking clearly. ? Your symptoms are getting worse. Watch closely for changes in your health, and be sure to contact your doctor if: ? You do not get better as expected. Patient Instructions: Antibiotic Form, Cirrhosis of the Liver (DC), Chronic Kidney Disease (DC), Hepatic Encephalopathy (DC) Patient Language: Hungarian Stand Alone Forms: General Discharge Information Follow-up/Referrals: Maddy Romano MD [Primary Care Provider, Internal Medicine] - 2 weeks Discharge Medications: No Action ondansetron HCl 4 mg tablet 4 mg PO DAILY PRN (Reason: nausea and vomiting) thiamine mononitrate (vit B1) 100 mg tablet 100 mg PO DAILY insulin glargine [Lantus U-100 Insulin] 100 unit/mL solution 44 unit subcut QPM spironolactone 100 mg tablet 100 mg PO DAILY bumetanide 1 mg Tablet 2 mg PO DAILY insulin lispro [Humalog U-100 Insulin] 100 unit/mL Solution 8 unit subcut DAILY Rx Instructions: WITH PROTEIN DRINK. TAKE WITH MEAL UP TO 150 BLOOD GLUCOSE LEVEL +1 FOR EVERY 50 POINTS lactulose 20 gram/30 mL solution 0.03 g PO TID ciclopirox 8 % solution 1 applic TOPICAL DAILY metolazone 10 mg tablet 10 mg PO .Bi-weekly Xifaxan 550 mg tablet 550 mg PO BID Mounjaro 5 mg/0.5 mL pen injector 5 mg SUBCUT WEEKLY pantoprazole 40 mg tablet,delayed release (DR/EC) 40 mg PO DAILY Qty: 30 0RF Date of admission: 04/13/25 14:19 Primary Care Provider: Maddy Romano Admitting Provider: Jt Chavez Attending physician on admission: Jt Chavez Condition: Stable Quality VTE Prophylaxis VTE prophylaxis: mechanical ordered -Patient's previous records reviewed on admission -ER notes reviewed in detail on admission -discussed all findings and current treatment plan with patient/Family/POA -Consultations reviewed for recommendations -Patient's disposition for safe discharge discussed with case hardener Dictation performed by [employer] direct speech recognition software, therefore lab head variants and typographical errors may occur. Hospitalist [facility] Advance Care Plan I have confirmed that the patient's Advanced Care Plan is present, code status is documented, or surrogate decision maker is listed in patient medical record.: Yes Medication Reconciliation I have utilized all available resources to obtain, update and review the patients current medications (includes all prescriptions, OTC, herbals, cannabis, and nutritional supplements).: Yes The patient is not eligible for med reconciliation; the patient is in a emergent medical situation where delaying treatment would jeopardize the patients health.: No Heart Failure (Exclusion) Patient has history of Heart Transplant or Left Ventricular Assistive Device?: No IF YES, STOP HERE Heart Failure (Qualifier) Patient has current or prior documentation of LVEF less than or equal to 40%, or mod/servere depressed LVSF?: No IF NO, STOP HERE
--- NOTE | 2025-04-14 09:20 | PC.NURSE ---
Discharge instructions reviewed with patient and . All questions answered. Pt transported via wheelchair and assisted into private vehicle.
--- NOTE | 2025-04-16 08:45 | PC.NURSE ---
Discharge call back completed, doing well, no questions regarding instructions or medications
== END 2025-04-14 09:25 | disposition home or self-care (01) ==
LOC: CHSED 12:06 → CHS2ND 14:27
PROVIDERS: Nurse Practitioner Family; Admitting Provider Internal Medicine; Emergency Provider Emergency Medicine; PCP Internal Medicine; Visit Provider Internal Medicine
DX: N17.9 Acute kidney failure, unspecified (principal); K76.82 Hepatic encephalopathy; K72.00 Acute and subacute hepatic failure without coma; K72.10 Chronic hepatic failure without coma; E86.0 Dehydration; D69.6 Thrombocytopenia, unspecified; N18.30 Chronic kidney disease, stage 3 unspecified; E72.20 Disorder of urea cycle metabolism, unspecified; E87.6 Hypokalemia; E11.22 Type 2 diabetes mellitus with diabetic chronic kidney disease; I12.9 Hypertensive chronic kidney disease with stage 1 through stage 4 chronic kidney disease, or unspecified chronic kidney disease; Z79.4 Long term (current) use of insulin; K74.60 Unspecified cirrhosis of liver; Z79.85 Long-term (current) use of injectable non-insulin antidiabetic drugs; Z87.891 Personal history of nicotine dependence; Z85.118 Personal history of other malignant neoplasm of bronchus and lung; Z80.3 Family history of malignant neoplasm of breast; Z80.0 Family history of malignant neoplasm of digestive organs; Z82.49 Family history of ischemic heart disease and other diseases of the circulatory system; Z82.3 Family history of stroke
CPT/HCPCS: 36415; 70450; 71045; 80053; 81003; 82140; 82550; 82948; 83735; 84443; 85025; 85055; 85610; 85730; 96361; 96374; 97161; 99285; A9270; G0378; J1815; J2405; J7030

== ENCOUNTER 2025-05-19 13:44 | Outpatient (RCR) | payer MEDICARE, SELFPAY ==
--- NOTE | 2025-05-19 15:08 | OPREHPOC ---
Outpatient Therapy Plan of Care This is a Multidisciplinary Plan of Care that may contain components documented by all disciplines (PT, OT, and ST.) PT Problem 1 PT Problem #1 Knowledge Deficit PT Goal 1 Goal / Goal Update The patient will be independent in a home exercise program. Target Visit 2 PT Problem 2 PT Problem #2 Impaired Balance PT Goal 1 Goal / Goal Update The patient will score 19/28 or greater on the Tinetti Balance Scale indicating a lower fall risk . The patient will improve TUG time to 15 seconds or less. The patient will improve 5x STS to 40 seconds or less. Target Visit 12 PT Problem 3 PT Problem #3 Impaired Strength PT Goal 1 Goal / Goal Update The patient will demonstrate 4/5 or greater hip and knee strength to improve ability to get out of chairs. PT Problem 4 PT Problem #4 Impaired Endurance PT Goal 1 Goal / Goal Update The patient will demonstrate the ability to walk 600 feet during the 6 MWT with an appropriate AD. Target Visit 12
--- NOTE | 2025-05-19 15:08 | PTOPEVAL1 ---
Assessment and note entered by Francesca Du, PT Evaluation Information Assessment Status Evaluation Diagnosis Unsteady Gait Subjective Information Aleah Levine reports she has liver disease and she is on the transplant list for her liver and kidneys. She reports she fatigues easily and she stutters a lot when her ammonia levels are high. She has noticed a decline in her leg strength and she is having difficulty getting out of chairs and walks with unsteadiness. She has chronic general pain that seems to be worse when she is fatigued. She denies falls recently but she has had falls in the past that resulted in fractures of her neck, back, right humerus, and both great toes. She notes increased unsteadiness in the morning and has to use furniture for balance. She will use a walker when she is really unsteady and a rollator when she goes outside. She has 3 stairs to enter her home and uses the handrail that is on the left side only when entering her home. She is taking steps one at a time and struggles even with the handrail. Reported Pain Level Pain Score 5: Self Report Assessment PT Clinical Summary Aleah Levine presents with unsteady gait and LE weakness. She has a diagnosis of cirrhosis of the liver and is on the transplant list. She has difficulty with stairs, walking, getting out of chairs, and does not drive anymore. She objectively demonstrates decreased left > right hip and knee strength, impaired gait, and impaired balance. She is high fall risk. She will benefit from skilled PT to address these limitations. Plan of Care Interventions Gait Training,Neuro Re-education,Patient/Caregiver Education,Therapeutic Activities,Therapeutic Exercise,Self-Care/Home Management PT Services Indicated Yes Treatment Frequency and 3 times a week for 12 visits Duration These treatments will address the objective and functional deficits as defined above. The patient will be advanced safely and appropriately in order for the patient to progress towards his/her prior level of function. Additional exercises will be introduced and as well as a comprehensive home exercise program upon discharge, if needed, ?to ensure carryover of functional gains achieved in the clinic. This treatment plan has been reviewed and agreement upon by the patient.
--- NOTE | 2025-06-10 10:46 | PCPTNOTE ---
cancelled session. Reports that pt is not feeling well and will call to schedule after she sees her doctor.
--- NOTE | 2025-07-29 08:38 | PCPTNOTE ---
Pt was last seen on 06/04/25 and has not returned to PT. She is discharged. -Francesca Du, PT
== END 2025-06-04 20:00 | disposition home or self-care (01) ==
LOC: CHSPT 13:44
PROVIDERS: PCP Internal Medicine; Visit Provider Internal Medicine
DX: R26.81 Unsteadiness on feet (principal)
CPT/HCPCS: 97110; 97162; 97530

== ENCOUNTER 2025-07-19 14:41 | Outpatient (CLI) | payer MEDICARE, SELFPAY ==
[2025-07-19 15:37] LABS: Hematocrit 29.0 % (35.0-49.0); Hemoglobin 9.2 g/dL (12.0-15.0); Immature Platelet Fraction Pct 2.7 % (1.0-7.0); Mean Corpuscular HGB Conc 31.7 g/dL (32-36); Mean Corpuscular Hemoglobin 27.5 pg (27.0-31.0); Mean Corpuscular Volume 86.6 fL (78.0-102.0); Platelet Count Result 51 K/mm3 (150-420); Red Blood Count 3.35 M/mm3 (4.20-5.40); White Blood Count 4.0 K/mm3 (4.8-10.8)
[2025-07-19 15:50] LABS: INR 3.2; Prothrombin Time 31.4 Seconds (9.50-12.1)
[2025-07-19 16:20] LABS: Alanine Aminotransferase 21 U/L (6-35); Albumin Level 3.9 g/dL (3.5-5.1); Alkaline Phosphatase 67 U/L (38-126); Anion Gap 10 mmol/L (4-12); Aspartate Amino Transferase 35 U/L (14-36); Bilirubin,Total 2.5 mg/dL (0.2-1.3); Blood Urea Nitrogen 27 mg/dL (7-17); Calcium 8.9 mg/dL (8.4-10.2); Carbon Dioxide 27 mmol/L (22-30); Chloride 103 mmol/L (98-107); Estimated Glomerular Filt Rate 37; Glucose 108 mg/dL (65-110); Osmolality Calculated 296 mOsm/kg (285-295); Potassium 3.3 mmol/L (3.4-5.0); Sodium 140 mmol/L (137-145); Total Protein 6.3 g/dL (6.3-8.2)
== END 2025-07-19 14:42 | disposition home or self-care (01) ==
LOC: CHSLAB 14:42
PROVIDERS: PCP Internal Medicine; Visit Provider Internal Medicine
DX: K74.69 Other cirrhosis of liver (principal)
CPT/HCPCS: 36415; 80053; 85027; 85055; 85610

== ENCOUNTER 2025-07-26 14:56 | Outpatient (CLI) | payer MEDICARE, SELFPAY ==
--- OUTSIDE RECORDS SUMMARY | 2025-03-18 03:10 | XMS_ITS ---
Author Organization [facility] Address [address] [place], [place] [id number] Care Team Providers Care Guest Relations Associate Name Role Phone IVAN HARDIN Unavailable [phone] Leisa Romano Unavailable Unavailable BALDEV TAPIA Unavailable [phone] Allergies Allergen (clinical drug ingredient) Drug/Non Drug Allergy documented on EMR Reaction Allergy Type Onset Date Status Substance with sulfonamide structure and antibacterial mechanism of action (substance) Sulfa Antibiotics Unknown Drug Allergy Active REASON FOR VISIT *General care Medications Medication SIG (Take, Route, Frequency, Duration) Notes Start Date End Date Status Pantoprazole Sodium-NaCl 40-0.9 MG/100ML Solution as directed Intravenous Active Spironolactone 100 MG Tablet 1 tablet Orally Once a day Active Lactulose 20 GM Packet 1 packet as neede d Orally Once a day Active Xifaxan 550 MG Tablet 1 tablet Orally Twice a day Active Bumetanide 1 MG Tablet 1 tablet Orally O nce a day Active Ciclopirox 8 % Solution 1 application Externally to toenails. Once a day.; Duration: 30 days Remove medication once a week with rubbing alcohol. one bottle, 6.6mL or similar. Active Ondansetron 4 MG Tablet Disintegrating 1 tablet on the tongue and allow to dissolve Orally Once a day Active Vital Signs Height 68 in 03/18/2025 Weight 200 lbs 03/18/2025 BMI 30.41 kg/m2 03/18/2025 Height-cm 172.72 cm 03/18/2025 Weight-kg 90.72 kg 03/18/2025 Encounters Encounter Location Date Provider Diagnosis [address] [id number] 03/18/2025 BALDEV TAPIA Tinea unguium B35.1 ; Pain in right toe(s) M79.674 ; Pain in left toe(s) M79.675 ; Atherosclerosis of ione arteries of extremities with intermittent claudication, bilateral legs I70.213 and Type 2 diabetes mellitus with other circulatory complications E11.59 Assessments Encounter Date Diagnosis (ICD Code) Assessment Notes Treatment Notes Treatment Clinical Notes Section Notes 03/18/2025 Tinea unguium (ICD-10 - B35.1) NAIL DEBRIDEMENT: Nails 1-5 Bilateral were debrided extensively with nail nippers and emery board, reducing length and girth to pink healthy tissue with any subungual debris and necrotic tissue removed 03/18/2025 Pain in right toe(s) (ICD-10 - M79.674) 03/18/2025 Pain in left toe(s) (ICD-10 - M79.675) 03/18/2025 Atherosclerosis of ione arteries of extremities with intermittent claudication, bilateral legs (ICD-10 - I70.213) 03/18/2025 Type 2 diabetes mellitus with other circulatory complications (ICD-10 - E11.59) Diabetic Foot Care: The patient was educated on diabetes and the lower extremity. The patient was instructed to check his feet daily to report any problems or signs of infection immediately. The patient was provided written information on Diabetic Foot Care as well as the Amputation Prevention Guide. Plan Of Treatment Medication Medication Name Sig Start Date Stop Date Notes Ciclopirox 8 % Solution 1 application Ex ternally to toenails. Once a day.; Duration: 30 days one bottle, 6.6m L or similar. Treatment Notes Assessment Notes Tinea unguium NAIL DEBRIDEMENT: Na ils 1-5 Bilateral were debrided extensively with nail nippers and emery board, reducing length and girth to pink healthy tissue with any subungual debris and necrotic tissue removed Type 2 diabetes mellitus wit h other circulatory complications Diabetic Foot Care: The patient was educated on diabetes and the lower extremity. The patient was instructed to check his feet daily to report any problems or signs of infection immediately. The patient was provided written information on Diabetic Foot Care as well as the Amputation Prevention Guide. Next Appt Details Follow Up: 10 - 12 weeks, Re ason: At-Risk Foot care, sooner if problems develop. History and Physical Notes * HPI (History of Present Illness) Category Sub-Category Detail Notes Category Not es HPI General care Patient presents to the office for diabetic foot care. Patient states that their nails are thickened, elongated and painful. Patient states that it is aggravated by shoe gear. Onset is gradual., Patient is taking prescription blood thinners., Date last seen by Dr. Chin was 12/2024., Initials nd Examination Category Sub-Category Detail Notes Category Not es Dermatologic Skin findings: Skin is thin, at rophic and lacking pedal hair. There is a circular dark discoloration to the dorsal aspect of the right foot. It has a small divet that has the clinical appearance of an old spider or insect bite. There is no erythema, no breaks in the skin Nail pathology: Nails 1, 2, 3, 4, an d 5 bilateral are elongated, thick, discolored, and dystrophic with subungual debris. They are painful to palpation. The left hallux toenail is lytic Neurologic Gross sensation Grossly intact t o light touch. There is negative Tinel's sign Vascular Dorsalis pedis pulse: 1/4 bilateral Edema: No edema bilateral Capillary refill: greater than 3 secon ds Posterior tibial pulse: 0/4 bilateral Physical Examination General appearance: Alert, pleasant, well-nourished and in no acute distress Musculoskeletal Muscle Strength Muscle strength is 5/5 in regards to dorsiflexion, plantarflexion, inversion, and eversion in bilateral lower extremities Progress Notes * Aleah CARDOZADOB: [birth year] (64 yo F)Acc No.[id number]:03/18/2025 Patient: Aleah Garcia Provider: Gisela TAPIA :1960 A ge:64 Y S ex:Female Date:03/18/2025 Address:[facility] [address] [id number] Subjective: * Chief Complaints: * * General care * HPI: H PI: General care P atient presents to the office for diabetic foot care. Patient states that their nails are thickened, elongated and painful. Patient states that it is aggravated by shoe gear. Onset is gradual., Patient is taking prescription blood thinners., Date last seen by Dr. Chin was 12/2024., Initials nd. * ROS: G eneral / Constitutional: Patient denies c hills, fever, weight loss. ? M usculoskeletal: Patient denies w eakness, broken foot bone. ? P eripheral Vascular: Patient denies p ain / cramping in legs after exertion, ulceration of feet. S kin: Patient complains of f ungal nails, nail changes, discoloration of skin. N eurologic: Patient denies b alance difficulty, confusion, difficulty speaking, dizziness. * Medical History: Pneumonia Anemia Asthma - mild intermittent Leg/Feet cramps Liver disease Sleep apnea Diabetic Medical History Verified * Surgical History: Denies Past Surgical History. Surgical History verified. * Hospitalization/Major Diagno stic Procedure: Denies Past Hospitalization. Hospitalization Verified. * Family History: N o Family History documented.. F amily History Verified.. * Social History: Social History Verified. No Social History documented. * Medications: T akingOndansetron 4 MG Tablet Disintegrating 1 tablet on the tongue and allow to dissolve Orally Once a day Pantoprazole Sodium-NaCl 40-0.9 MG/100ML Solution as directed Intravenous Xifaxan 550 MG Tablet 1 tablet Orally Twice a day Bumetanide 1 MG Tablet 1 tablet Orally Once a day Spironolactone 100 MG Tablet 1 tablet Orally Once a day Lactulose 20 GM Packet 1 packet as needed Orally Once a day Ciclopirox 8 % Solution 1 application Externally to toenails. Once a day. Remove medication once a week with rubbing alcohol., stop date 06/08/2025, Notes to Pharmacist: one bottle, 6.6mL or similar.Medication List reviewed and reconciled with the patientTaking Ondansetron 4 MG Tablet Disintegrating 1 tablet on the tongue and allow to dissolve Orally Once a day Taking Pantoprazole Sodium-NaCl 40-0.9 MG/100ML Solution as directed Intravenous Taking Xifaxan 550 MG Tablet 1 tablet Orally Twice a day Taking Bumetanide 1 MG Tablet 1 tablet Orally Once a day Taking Spironolactone 100 MG Tablet 1 tablet Orally Once a day Taking Lactulose 20 GM Packet 1 packet as needed Orally Once a day Taking Ciclopirox 8 % Solution 1 application Externally to toenails. Once a day. Remove medication once a week with rubbing alcohol., stop date 06/08/2025, Notes to Pharmacist: one bottle, 6.6mL or similar.Medication List reviewed and reconciled with the patient * Allergies: S ulfa Antibiotics: AllergyyesAllergies Verified. Objective: * Vitals: W t:200lbs, Wt-k.72 kg, Ht: 68 in, Ht-cm: 172.72 cm, BMI:30.41Index, Body Surface Area: 2.08. * Examination: P hysical Examination: General appearance: A lert, pleasant, well-nourished and in no acute distress. D ermatologic: Skin findings: S kin is thin, atrophic and lacking pedal hair. There is a circular dark discoloration to the dorsal aspect of the right foot. It has a small divet that has the clinical appearance of an old spider or insect bite. There is no erythema, no breaks in the skin. Nail pathology: N ails 1, 2, 3, 4, and 5 bilateral are elongated, thick, discolored, and dystrophic with subungual debris. They are painful to palpation. The left hallux toenail is lytic. V ascular: Dorsalis pedis pulse: 1 /4 b ilateral. Posterior tibial pulse: 0 /4 bilateral. Capillary refill: g reater than 3 seconds. Edema: N o edema bilateral. N eurologic: Gross sensation G rossly intact to light touch. There is negative Tinel's sign. M usculoskeletal: Muscle Strength M uscle strength is 5/5 in regards to dorsiflexion, plantarflexion, inversion, and eversion in bilateral lower extremities. ? Assessment: * Assessment: 1. T inea unguium - B35.1 (Primary) 2 . P ain in right toe(s) - M79.674? 3. P ain in left toe(s) - M79.675 4 . A therosclerosis of ione arteries of extremities with intermittent claudication, bilateral legs - I70.213 5 . T ype 2 diabetes mellitus with other circulatory complications - E11.59 Plan: * Treatment: 2. T ype 2 diabetes mellitus with other circulatory complications Notes: Diabetic Foot Care: The patient was educated on diabetes and the lower extremity. The patient was instructed to check his feet daily to report any problems or signs of infection immediately. The patient was provided written information on Diabetic Foot Care as well as the Amputation Prevention Guide. * Follow Up: 1 0 - 12 weeks (Reason: At-Risk Foot care, sooner if problems develop.) Billing Information: * Visit Code: 49932 Office Visit, Est Pt., Level 3. * Procedure Codes: * Electronic signature of MAURICE TAPIA DPM on 07/26/2025 at 05:20 PM [employer]ER Sign off status: Pending * Provider: Gisela TAPIA Date: 0 03/18/2025 Generated for Jose lora/Katlin/Romel on: 1 09/26/2024 05:20 PM [employer]
[2025-07-26 15:30] LABS: Hematocrit 28.5 % (35.0-49.0); Hemoglobin 9.0 g/dL (12.0-15.0); Mean Corpuscular HGB Conc 31.6 g/dL (32-36); Mean Corpuscular Hemoglobin 27.6 pg (27.0-31.0); Mean Corpuscular Volume 87.4 fL (78.0-102.0); Platelet Count Result 65 K/mm3 (150-420); Red Blood Count 3.26 M/mm3 (4.20-5.40); White Blood Count 3.8 K/mm3 (4.8-10.8)
[2025-07-26 16:00] LABS: Alanine Aminotransferase 22 U/L (6-35); Albumin Level 3.6 g/dL (3.5-5.1); Alkaline Phosphatase 73 U/L (38-126); Anion Gap 8 mmol/L (4-12); Aspartate Amino Transferase 40 U/L (14-36); Bilirubin,Total 1.8 mg/dL (0.2-1.3); Blood Urea Nitrogen 24 mg/dL (7-17); Calcium 8.8 mg/dL (8.4-10.2); Carbon Dioxide 29 mmol/L (22-30); Chloride 103 mmol/L (98-107); Estimated Glomerular Filt Rate 38; Glucose 112 mg/dL (65-110); Osmolality Calculated 295 mOsm/kg (285-295); Potassium 3.4 mmol/L (3.4-5.0); Sodium 140 mmol/L (137-145); Total Protein 6.1 g/dL (6.3-8.2)
[2025-07-26 16:20] LABS: INR 4.8; Prothrombin Time 45.8 Seconds (9.50-12.1)
--- OUTSIDE RECORDS SUMMARY | 2025-07-26 17:19 | XMS_ITS | Encounter Summary ---
Author Organization [facility] Healthcare Address [address] [place] [address] Care Team Providers Care Supply Chain Assistant Name Role Phone Maddy Romano MD Primary Care Provider + [phone] Manas Ibarra MD Unavailable Zion Barton MD Unavailable Molina Charles MD Unavailable [phone] Inés Lemus RN Unavailable + [phone] Karuna Maria OT Unavailable Unavaila Renu Paul NP Unavailable [phone] Eladio Mcrae MD Unavailable [phone] Marcy Schroeder RN Unavailable [phone] Briana Poe RN Unavailable [phone] Marina Le RN Unavailable [phone] Chelsea Barker RN Unavailable Unavail able Marina Le RN Unavailable [phone] Encounter Details Date Type Department Care Team (Late st Contact Info) Description 05/11/2024 Telephone [facility] [address] [place] [address] Wheeler, Ragini L., RN Social History Tobacco Use Types Packs/Day Years Used Date Smoking Tobacco: Former Cigarettes 0.5 51 1 970 - 2020 Smokeless Tobacco: Never [facility] Utilities Answer Date Recorded In the [...] any time in the past 12 [facility], were you homeless or living in a assisted (including now)? No 04/30/2024 Personal Safety Answer Date Recorded Have you ever been in or are you currently in a harmful physical or emotional relationship or is someone making you feel afraid or unsafe? 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 of this encounter Plan of Treatment Scheduled Procedures Name Priority Associated Diagnoses Date/Ti me TRANSPLANT LIVER Metabolic dysfunction-associated steatohepatitis (MASH) TRANSPLANT KIDNEY Metabolic dysfunction-associated steatohepatitis (MASH) COLONOSCOPY Routine adult health maintenance LYONS (nonalcoholic steatohepatitis) documented as of this encounter Visit Diagnoses Not on filedocumented in this encounter Additional Health Concerns Infection Onset Date Last Indicated Resolved Time COVID: Suspected 09/24/2024 09/24/2024 09/24/2024 3:13 PM STENOCAPTIONER COVID: Suspected 06/28/2025 06/28/2025 06/29/2025 12:02 AM STENOCAPTIONER Ring Surveillance: LupilloTri howell Comment:[id number] 07/01/2025 07/01/2025 07/06/2025 9:[address] documented as of this encounter Care Teams Supply Chain Assistant Relationship Specialty Start Date End Date Maddy Romano MD [address] [place] [address] PCP - General 09/28/16 Manas Ibarra MD [address] [place] [address] Referring Physician Thoracic Surgery 11/05/18 Zion Barton MD [address] [place] [address] Radiation Oncologist Radiation Oncology 05/05/19 Molina Charles MD [address] [facility] [address] [place] [address] Referring Physician Transplant Hepatology 12/15/20 Inés Lemus, TYRA [address] [facility] [address] [place] [address] Stem Processing Machine Operator 10/31/21 5 Karuna Maria, OT Occupational Therapist Occupational Therapy 09/20/22 Renu Treviño NP [address] [facility] [address] [place] [address] Nurse Practitioner Radiation Oncology 11/08/22 Eladio Mcrae MD [address] [place] [address] Referring Physician Obstetrics and Gynecology 11/15/22 Marcy Schroeder RN [address] [place] [address] Stem Processing Machine Operator 04/27/24 Briana Poe, TYRA [address] [address] [facility] Outpatient Traveling Passenger Agent 04/30/24 05/28/24 Marina Le, RN [address] [address] [facility] Outpatient Traveling Passenger Agent 10/05/24 10/26/24 Chelsea Barker, assurance sourcing managerStem Processing Machine Operator 11/13/24 Marina Le, RN [address] [phone] [facility] Outpatient Traveling Passenger Agent 07/12/25 documented as of this encounter
--- OUTSIDE RECORDS SUMMARY | 2025-07-26 17:20 | XMS_ITS | Clinical Summary ---
Author Organization [facility] Address [address] [place] [address] Care Team Providers Care Research Programmer Name Role Phone Unavailable Primary Care Provider Unavailabl e Source Comments [facility],non-owned Affiliates and Associated Physician Practices is amultiple site organization consisting of ambulatory clinics and hospital sitesin [place], [place], [place] and [place]. This disclosure is being madepursuant to the Care Everywhere program and may not contain all information available regarding this patient. Last updated 18.[facility] Active Problems Problem Noted Date Diagnosed Date Decompensated hepatic cirrhosis 09/24/2024 Hepatic encephalopathy 04/01/2024 Cerebellar infarct 04/01/2024 Social History Tobacco Use Types Packs/Day Years Used Date Smoking Tobacco: Never Assessed Comments Unknown Sex and Gender Information Value Date Recorded Sex Assigned at Not on file Legal Sex Female 8:40 AM GRAIN ORIGINATION SPECIALIST Gender Identity Not on file Sexual Orientation [...] 2 - PCV) 12/18/1979 PAP SMEAR 1981 Respiratory Syncytial Virus (RSV) Vaccine Pt: or over 60 yrs (1 - Risk 50-74 years 1-dose series) 2010 ZOSTER VACCINE (1 of 2) 2010 HEPATITIS B VACCINE (1 of 3 - Risk 3-dose series) 2020 DEPRESSION SCREENING 08/12/2024 COVID-19 VACCINE (1 - 2024-2 6 season) 2025 INFLUENZA VACCINE (#1) 2025 HIB VACCINE Aged [...] patient's age to complete this topic Insurance [facility]
--- OUTSIDE RECORDS SUMMARY | 2025-07-26 17:20 | XMS_ITS | Clinical Summary ---
Author Organization [facility] Address [address] [place] [address] Care Team Providers Care Loader Operator Supervisor Name Role Phone Maddy Romano MD Primary Care Provider [phone] Active Problems Problem Noted Date Diagnosed Date [...] 03/24/2024 03/24/2014 COVID-19 Vaccine (3 - season) 2025 09/11/2021, 10/17/2020 Influenza Adult (#1) 2025 04/28/2021, 04/29/2020, 05/01/2019, Additional history exists RSV Immunization or 60+ Years (1 - 1-dose 75+ series) 12/18/2035 Zoster Vaccines Completed 02/17/2020, 05/29/2019 Hepatitis C Completed 01/05/2023 Hepatitis A Vaccines Aged Out No long er eligible based on patient's age to complete this topic Meningococcal B Vaccine Aged Out No l onger eligible based on patient's age to complete this topic Meningococcal Vaccine Aged Out No leo clifton eligible based on patient's age to complete this topic RSV Immunizations Under 20 Months Aged Out No longer eligible based on patient's age to complete this topic Insurance [facility] Care Teams Loader Operator Supervisor Relationship Specialty Start Date End Date Maddy Romano MD [address] [place] [address] PCP - General INTERNAL MEDICINE 01/16/23
--- OUTSIDE RECORDS SUMMARY | 2025-07-26 17:20 | XMS_ITS | Encounter Summary ---
Author Organization [facility] [employer] [facility] Address [address] [place] [address] Phone Care Team Providers Care Lead Electrical Controls Engineer Name Role Phone Maddy Romano MD Primary Care Provider [phone] Astrid Haq BARREL ASSEMBLER HELPER Unavailable Manas Ibarra MD Unavailable Zion Barton MD Unavailable Molina Charles MD Unavailable [phone] Inés Lemus RN Unavailable [phone] Karuna Maria OT Unavailable Unavaila Renu Paul NP Unavailable [phone] Eladio Mcrae MD Unavailable [phone] Marcy Schroeder RN Unavailable [phone] Briana Poe RN Unavailable [phone] Marina Le RN Unavailable Chelsea Barker RN Unavailable Unavail able Marina Le RN Unavailable [phone] Encounter Details Date Type Department Care Team (Late st Contact Info) Description 10/11/2021 Orders Only [facility] Scanning, Provider Social History Tobacco Use Types Packs/Day Years Used Date Smoking Tobacco: Former Cigarettes Q uit: 2010 Smokeless Tobacco: Never Comments No Sex and Gender Information Value Date Recorded Sex Assigned at Not on file Legal Sex Female 8:22 AM VIDEO EDITOR Gender Identity Female 11/15/2021 2:30 AM CDT [...] COVID: Suspected 09/24/2024 09/24/2024 09/24/2024 3:13 PM VIDEO EDITOR COVID: Suspected 06/28/2025 06/28/2025 06/29/2025 12:02 AM VIDEO EDITOR Ring Surveillance: C. auris Comment:[id number] 07/01/2025 07/01/2025 07/06/2025 9:[address] documented as of this encounter Care Teams Lead Electrical Controls Engineer Relationship Specialty Start Date End Date Maddy Romano MD [address] [place] [address] PCP - General 09/28/16 Astrid Haq NP [address] [place] [address] Nurse Practitioner Radiation Oncology 11/05/18 11/07/22 Manas Ibarra MD [address] [place] [address] Referring Physician Thoracic Surgery 11/05/18 Zion Barton MD [address] [place] [address] Radiation Oncologist Radiation Oncology 05/05/19 Molina Charles MD 1 [facility] [address] [place] [address] Referring Physician Transplant Hepatology 12/15/20 Inés Lemus RN [address] [facility] [address] [place] [address] Process Area Supervisor 10/31/21 5 Karuna Maria, OT Occupational Therapist Occupational Therapy 09/20/22 Renu Treviño NP [address] [facility] [address] [place] [address] Nurse Practitioner Radiation Oncology 11/08/22 Eladio Mcrae MD [address] [place] [address] Referring Physician Obstetrics and Gynecology 11/15/22 Marcy Schroeder RN [address] [place] [address] Process Area Supervisor 04/27/24 Briana Poe RN [address] [address] [facility] Outpatient Hi Low Truck Driver 04/30/24 05/28/24 Marina Le RN [address] [address] [facility] Outpatient Hi Low Truck Driver 10/05/24 10/26/24 Chelsea Barker, event staff memberProcess Area Supervisor 11/13/24 Marina Le, RN [address] [phone] [facility] Outpatient Hi Low Truck Driver 07/12/25 documented as of this encounter
--- OUTSIDE RECORDS SUMMARY | 2025-07-26 17:20 | XMS_ITS | Encounter Summary ---
Author Organization [facility] Address [address] [place] [address] Phone Care Team Providers Care Dry Cans Back Tender Name Role Phone Maddy Romano MD Primary Care Provider Manas Ibarra MD Unavailable Zion Barton MD Unavailable Molina Charles MD Unavailable [phone] Karuna Maria OT Unavailable Unavaila Renu Paul NP Unavailable [phone] Eladio Mcrae MD Unavailable [phone] Marcy Schroeder RN Unavailable [phone] Chelsea Barker RN Unavailable Unavail able Marina Le RN Unavailable Encounter Details Date Type Department Care Team (Late st Contact Info) Description 06/30/2025 Telephone [facility] Medicine Cardiology [address] [facility] 8th [place] [address] [place] [address] Padmini Leslie Social History Tobacco Use Types Packs/Day Years Used Date Smoking Tobacco: Former Cigarettes 0.5 51 1 970 - 2020 Smokeless Tobacco: Never Alcohol Use Standard Drinks/Week Comments Never 0 (1 standard drink = 0.6 oz pur e alcohol) occasional Social Connection and Isolation Panel Answer Date Recorded In a typical week, how many times do you talk on the phone with family, friends, or neighbors? More than three times a week 10/05/2024 How often do you get togethe r with friends or relatives? More than three times a week 10/05/2024 How often do you attend chur ch or jehovah's witness services? Never 10/05/2024 Do you belong to any clubs o r organizations such as amish groups, unions, fraternal or athletic groups, or school groups? No 10/05/2024 How often do you attend meet ings of the clubs or organizations you belong to? Never 10/05/2024 Are you , , di vorced, , never , or living with a partner? 10/05/2024 Overall Financial Resource Strain (CARDIA) Answe r Date Recorded How hard is it for you to pa y for the very basics like food, housing, medical care, and heating? Not very hard 10/05/2024 PHQ-2 Answer Date Recorded PHQ-2 Total Score (If total score is 3 or more points, staff should administer the PHQ-9) 0 01/27/2023 PRAPARE - Transportation Answer Date Re corded [...] in a intermediate (including now)? No 10/05/2024 Humiliation, Afraid, Rape, and Kick questionnair e Answer Date Recorded Within the last year, have y ou been afraid of your partner or ex-partner? No 06/29/2025 Within the last year, have y ou been humiliated or emotionally abused in other ways by your partner or ex-partner? No Within the last year, have y ou been kicked, hit, slapped, or otherwise physically hurt by your partner or ex-partner? No 06/29/2025 Within the last year, have y ou been raped or forced to have any kind of sexual activity by your partner or ex-partner? No 06/29/2025 Social Connection and Isolation Panel Answer Date Recorded In a typical week, how many times do you talk on the phone with family, friends, or neighbors? Three times a week 06/30/2025 How often do you get togethe r with friends or relatives? Three times a week 06/30/2025 How often do you attend chur ch or jehovah's witness services? Never 06/30/2025 Active Member of Clubs or Organizations No 06/30/2025 Attends Club or Organization Meetings Never 06/30/2025 Marital Status 06/30/2025 AUDIT-C Answer Date Recorded Q1: How often do you have a drink containing alcohol? Never 06/30/2025 Q2: How many drinks containi ng alcohol do you have on a typical day when you are drinking? Patient does not drink Q3: How often do you have si x or more drinks on one occasion? Never 06/30/2025 Overall Financial Resource Strain (CARDIA) Answe r Date Recorded How hard is it for you to pa y for the very basics like food, housing, medical care, and heating? Not very hard 06/30/2025 [facility] [place] of Occupat ional Health - Occupational Stress Questionnaire Answer Date Recorded Do you feel stress - tense, restless, nervous, or anxious, or unable to sleep at night because your mind is troubled all the time - these days? Only a little 06/29/2025 Hunger Vital Sign Answer Date Recorded Within the past 12 months, y ou worried that your food would run out before you got the money to buy more. Never true 06/30/20 25 Within the past 12 months, t he food you bought just didn't last and you didn't have money to get more. Never true 06/30/2025 PRAPARE - Transportation Answer Date Re corded In the past 12 months, has l ack of transportation kept you from medical appointments or from getting medications? No 06/12 In the past 12 months, has l ack of transportation kept you from meetings, work, or from getting things needed for daily living? No 06/30/2025 Housing Stability Vital Sign Answer Terrance e Recorded In the last 12 months, was t here a time when you were not able to pay the mortgage or rent on time? No 06/30/2025 In the past 12 months, how m any times have you moved where you were living? 0 06/30/2025 At any time in the past 12 m [facility], were you homeless or living in a intermediate (including now)? No 06/30/2025 [facility] Utilities Answer Date Recorded In the past 12 months has th e electric, gas, oil, or water company threatened to shut off services in your home? No 06/30/2025 Personal Safety Answer Date Recorded Have you ever been in or are you currently in a harmful physical or emotional relationship or is someone making you feel afraid or unsafe? 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 of this encounter Functional Status * Difference in Last Two Richard Scores Answer Date of Assessment Author 1 07/03/2025 7:00 PM Holly Jones RN * Question Answer Date of Assessment Author BP Location Left arm 07/02/2025 7:00 PM Ramya Diallo RN BP Method Automatic 07/02/2025 7:00 PM Ramya Diallo RN * Paz Fall Risk Question Answer Date of Assessment Author History of Falling 0 07/03/2025 7:00 PM Ramya Jones RN Secondary Diagnosis 15 07/03/2025 7:00 PM Ramya Jacome RN Ambulatory Aids 0 07/03/2025 7:00 PM Ramya Wan RN Intravenous Therapy/Heparin/Saline Lock 20 07/03/2025 7:00 PM Holly Jones RN Gait/Transferring 10 07/03/2025 7:00 PM Ramya Jones RN Mental Status 0 07/03/2025 7:00 PM Ramya Carr RN Paz Fall Risk Score (Score >= 45 places fall precaution order) 45 07/03/2025 7:00 PM Ramya Carr RN Prior Fall Event (Autopopula juventino from EMR) None found 07/03/2025 7:00 PM Ramya Jones R N * Richard Scale Question Answer Date of Assessment Author Sensory Perceptions 4 07/03/2025 7:00 PM Ramya Jacome RN Moisture 3 07/03/2025 7:00 PM Ramya Diallo RN Activity 2 07/03/2025 7:00 PM Ramya Diallo RN Mobility 3 07/03/2025 7:00 PM Ramya Diallo RN Nutrition 3 07/03/2025 7:00 PM Ramya Diallo RN Friction and Shear 2 07/03/2025 7:00 PM Ramya Jones RN Richard Scale Score 17 07/03/2025 7:00 PM Ramya Jones RN * Fall Risk Interventions Question Answer Date of Assessment Author All Low Fall Interventions Applied Yes 07/03/2025 7:00 PM Ramya Jones RN All Moderate Fall Interventions Applied Yes 07/03/2025 7:00 PM Ramya Jones RN All Moderate Fall Risk Interventions EXCEPT: Remain with patient while toileting 06/30/2025 7:00 PM Velma Campuzano RN All High Fall Risk Interventions Applied Yes 07/03/2025 7:00 PM Ramya Jones RN All High Risk Interventions EXCEPT: Chair alarm 06/30/2025 7:00 PM Velma Campuzano RN Additional Interventions Applied Other (Comment) 07/03/2025 7:00 AM Jessica Corado RN Reason For Exception(s) PW 06/30/20 7:00 PM Velma Campuzano RN Reason For Exception(s) in bed 06/30/20 7:00 PM Velma Campuzano RN * B.M.A.T. - Bedside Mobility Assessment Tool for Nurses Question Answer Date of Assessment Author Is patient able to participate in the BMAT? Yes 07/03/2025 7:00 PM Irasema Jones RN BMAT Level Level 3 - Yellow 07/03/2025 7:00 PM Ramya Simpson RN Level 1 Equipment Use friction reducing devices 07/03/2025 7:00 AM Jessica Corado RN Level 3 Equipment Use non-powered stand aid 07/03/2025 7:00 AM Jessica Corado RN * Pressure Injury Prevention Question Answer Date of Assessment Author Pressure Ulcer Prevention Interventions Keep skin clean and dry (Sensory Perception/Moisture);A pply protective foam/adhesive dressing (Sensory Perception/Activity/Mo isture);Reposition at regular intervals while in the chair (Activity) 07/03/2025 7:00 PM Ramya Jones RN 2 Nurse Skin Assessment Jessica Briones 07/03/20 7:00 PM Ramya Jones RN Protective Foam Dressing Location Coccyx 07/03/2025 7:00 PM Ramya Jones RN Special Mattress Rotation with alternating pressure relief and low air loss 07/03/2025 7:00 PM Ramya Jones RN * AUDIT-C Score Answer Date of Assessment Author 0 06/30/2025 1:36 PM TELESCOPE REPAIRER Tristen Mast * Alcohol Use Question Answer Date of Assessment Author Q1: How often do you have a drink containing alcohol? Never 06/30/2025 1:36 PM Kira Nieto Q2: How many drinks containing alcohol do you have on a typical day when you are drinking? Patient does not drink 06/30/2025 1:36 PM Kira Nieto Q3: How often do you have six or more drinks on one occasion? Never 06/30/2025 1:36 PM Kira Nieto * Question Answer Date of Assessment Author Arterial Line MAP (mmHg) 69 07/03/2025 11:43 PM Ramya Jones RN Arterial Line BP 142/44 07/03/2025 11:43 PM Ramya Jones RN * Integumentary Question Answer Date of Assessment Author Skin Color Appropriate for ethnicity 07/03/2025 7:00 PM Ramya Jones RN Skin Condition/Temp Warm 07/03/2025 7 :00 PM Ramya Jones RN Skin Integrity Bruising 07/03/2025 7:00 PM Ramya Jones RN Skin Turgor Non-tenting 07/03/2025 7:00 PM Ramya Jones RN Integumentary Additional Assessments Yes-Richard 07/03/2025 7:00 PM Ramya Jones RN Integumentary (WDL) X 07/03/2025 7 :00 PM Ramya Jones RN Skin Location generalized 07/03/2025 7:00 PM Ramya Jones RN * Richard Scale Question Answer Date of Assessment Author Richard Scale Used Richard 06/30/2025 1:36 PM Kira Nieto * Fall TIPS Risk and Interventions Question Answer Date of Assessment Author Paz Fall Risk Score 30 06/30/2025 7:00 AM Carmen Conde RN Prior Fall Event (Autopopulated from EMR) 0=None found 06/30/2025 7:00 AM Carmen Conde RN Points from History of Falling (including autopopulated) 0 06/30/2025 7:00 AM Carmen Conde RN History of Falling 0 06/30/2025 7: 00 AM Carmen Conde RN Medication Side Effects/Secondary Diagnosis 0 06/30/2025 7:00 AM Carmen Conde RN Ambulatory Aids 0 06/30/2025 7:00 AM Carmen Conde RN Intravenous Therapy/Heparin/Saline Lock 20 06/30/2025 7:00 AM Carmen Conde RN Gait/Transferring 10 06/30/2025 7:0 0 AM Carmen Conde RN Unsteady Walk Fall Interventions Assistance out of bed, 1 person 06/30/2025 7:00 AM Carmen Conde RN Mental Status 0 06/30/2025 7:00 AM Carmen Conde RN IV/Equipment Fall Interventions No intervention 06/30/2025 7:00 AM Carmen Conde RN * Question Answer Date of Assessment Author MAP (mmHg) 82 07/02/2025 9:25 PM Ramya Diallo RN * Question Answer Date of Assessment Author BP Location Left arm 07/02/2025 7:00 PM Ramya Diallo RN BP Method Automatic 07/02/2025 7:00 PM Ramya Diallo RN * Question Answer Date of Assessment Author Edema Trace 07/03/2025 7:00 PM Ramya Diallo RN Perineal Edema No pitting 07/03/2025 7:00 AM Jessica Bhardwaj RN Sacral Edema No pitting 07/03/2025 7:00 AM Jessica Kumar RN RLE Edema No pitting 07/03/2025 7:00 PM Ramya Diallo RN LLE Edema No pitting 07/03/2025 7:00 PM Ramya Diallo RN Edema Generalized 07/03/2025 7:00 PM Ramya Diallo RN * Question Answer Date of Assessment Author Affect Appropriate 07/03/2025 7:00 AM Jessica Kumra RN Mood Content 07/03/2025 7:00 AM Jessica Kumar RN * Question Answer Date of Assessment Author Percent Meal Eaten (%) 75 07/03/2025 1:00 PM TELESCOPE REPAIRER Jessica Michele RN Feeding Level of Assistance Able to feed self 07/01/2025 1:00 PM TELESCOPE REPAIRER Uma Westfall RN Diet Supplement Name/Percent Consumed % 0 NPO 06/30/2025 10:21 AM TELESCOPE REPAIRER Aziza Gibbs RN * Fall Risk Interventions Question Answer Date of Assessment Author All Low Fall Interventions Applied Yes 07/03/2025 7:00 PM Ramya Jones RN All Moderate Fall Interventions Applied Yes 07/03/2025 7:00 PM Ramya Jones RN All Moderate Fall Risk Interventions EXCEPT: Remain with patient while toileting 06/30/2025 7:00 PM Velma Campuzano RN All High Fall Risk Interventions Applied Yes 07/03/2025 7:00 PM Ramya Jones RN All High Risk Interventions EXCEPT: Chair alarm 06/30/2025 7:00 PM Velma Campuzano RN Additional Interventions Applied Other (Comment) 07/03/2025 7:00 AM Jessica Corado RN Reason For Exception(s) PW 06/30/20 7:00 PM Velma Campuzano RN Reason For Exception(s) in bed 06/30/20 7:00 PM Velma Campuzano RN * Question Answer Date of Assessment Author Bed In Lowest Position Yes 07/03/2025 7:00 PM Ramya Jones RN Bed Wheels Locked Yes 07/03/2025 7:00 PM Ramya Jones RN * Hygiene Question Answer Date of Assessment Author Hygiene Hair washed 07/03/2025 2:00 PM Jessica Corado RN Oral Care Mouth suctioned;Mout h rinsed 07/03/2025 2:00 PM Jessica Corado RN Hygiene Level of Assistance Moderate assist 07/03/2025 2:00 PM Jessica Corado RN Toileting: Assistance with Bedside commode 07/03/2025 2:00 PM Jessica Corado RN Toileting: Level of assistance Contact guard 06/30/2025 9:00 AM Carmen Conde RN Reason not bathed/showered Patient/family refused bath/shower 06/30/2025 9:00 AM Carmen Conde, TYRA Perineal Care Quiana Care;Stewart Care 07/03/2025 7:00 PM Ramya Jones RN Linens Complete linen change 07/03/2025 2:00 PM Jessica Corado RN Bath Bathed/showered with chlorhexidine (CHG) 07/03/2025 2:00 PM Jessica Corado RN documented as of this encounter Mental Status * Question Answer Entry Date Author Level of Consciousness Awake 7:00 PM Ramya Jones RN Orientation Oriented X4 (person, place, time, situation) 07/03/2025 7:00 PM Ramya Jones RN Neuro (WDL) X 07/03/2025 7:00 PM Ramya Jones RN Other Neuro Symptoms Fatigue;Forgetful 7:00 AM Jessica Corado RN * Short Blessed Test Question Answer Entry Date Author What year is it now? 0 07/02/2025 10:25 AM Manda Madrid OT What month is it now? 0 07/02/2025 10:25 AM Manda Madrid OT Without looking at the clock, tell me what time it is 0 07/02/2025 10:25 AM Manda Madrid OT Count aloud backwards from 20- 2 07/02/2025 10:25 AM Manda Madrid OT Say the months of the year backwards in reverse order 0 07/02/2025 10:25 AM Manda Madrid OT Repeat the name and address I asked you to remember 0 07/02/2025 10:25 AM Manda Madrid OT Repeat this name and address after me Sahil Nicholas [address] [place] [address] 07/02/2025 10:25 AM TELESCOPE REPAIRER Manda Leal OT Short Blessed Total Score 2 07/02/2025 10:25 AM TELESCOPE REPAIRER Manda Leal OT * Question Answer Entry Date Author Feature 3: Altered Level of Consciousness Negative 07/03/2025 7:00 PM TELESCOPE REPAIRER Ramya Glaser R N Feature 1: Acute Onset or Fluctuating Course Negative 07/03/2025 7:00 PM TELESCOPE REPAIRER Ramya Glaser R N Feature 2: Inattention Negative 07/03/2025 7:00 PM TELESCOPE REPAIRER Ramya Glaser RN Feature 4: Disorganized Thinking Negative 07/03/20 7:00 PM TELESCOPE REPAIRER Ramya Glaser RN Overall CAM-ICU Negative 07/03/2025 7:00 PM TELESCOPE REPAIRER Ramya Grimaldo RN documented in this encounter Miscellaneous Notes * Telephone Encounter - Anushka Cuadra B.A. - 06/30/2025 11:19 AM TELESCOPE REPAIRER TYRA LYNN & RYAN SCOPE REPAIRER * Telephone Encounter - Padmini Leslie - 06/30/2025 11:12 AM CST CARDIOLOGY CONSULT 06/30/2025 RECEIVED BY: Padmini Leslie TYPE OF CONSULT: TONE REASON FOR CONSULT: consult to see if TONE needed before liver and kidney transplant (If a-fib proceed to next question) IS THE PATIENT EXPERIENCING INTERNAL BLEEDING? no (If yes give appropriate phone number) IS THE PATIENT CURRENTLY UNDERGOING CANCER TREATMENTS? no CALLER'S NAME: Dr. Ba CALLER'S PAGER: [phone] CAMPUS: [facility] PATIENT'S LOCATION: [facility] ATTENDING PHYSICIAN: Dr. Ba SCOPE REPAIRER documented in this encounter Plan of Treatment Scheduled Procedures Name Priority Associated Diagnoses Date/Ti me TRANSPLANT LIVER Metabolic dysfunction-associated steatohepatitis (MASH) TRANSPLANT KIDNEY Metabolic dysfunction-associated steatohepatitis (MASH) COLONOSCOPY Routine adult health maintenance LYONS (nonalcoholic steatohepatitis) documented as of this encounter Visit Diagnoses Not on filedocumented in this encounter Additional Health Concerns Infection Onset Date Last Indicated Resolved Time Ring Surveillance: Raz howell Comment:[id number] 07/01/2025 07/01/2025 07/06/2025 9:[address] documented as of this encounter Care Teams Dry Cans Back Tender Relationship Specialty Start Date End Date Maddy Romano MD [address] [place] [address] PCP - General 09/28/16 Manas Ibarra MD [address] [place], [place] [address] Referring Physician Thoracic Surgery 11/05/18 Zion Barton MD [address] [place], [place] [id number] Radiation Oncologist Radiation Oncology 05/05/19 Molina Charles MD [address] [facility] [address] [place] [address] Referring Physician Transplant Hepatology 12/15/20 Karuna Maria, OT Occupational Therapist Occupational Therapy 09/20/22 Renu Treviño NP [address] [facility] [address] [place] [address] Nurse Practitioner Radiation Oncology 11/08/22 Eladio Mcrae MD [address] [place] [address] Referring Physician Obstetrics and Gynecology 11/15/22 Marcy Schroeder, RN [address] [place], [place] [id number] Grocery Associate 04/27/24 Chelsea Barker, gerentological physiotherapistGrocery Associate 11/13/24 Marina Le, RN [address] [facility] [address] [place] [address] [facility] Outpatient Data Analyst Etl Developer 07/12/25 documented as of this encounter
--- OUTSIDE RECORDS SUMMARY | 2025-07-26 17:20 | XMS_ITS | Encounter Summary ---
Author Organization [facility] Healthcare Address [address] [place] [address] Care Team Providers Care Crate Maker Name Role Phone Maddy Romano MD Primary Care Provider [phone] Manas Ibarra MD Unavailable Zion Barton MD Unavailable Molina Charles MD Unavailable [phone] Karuna Maria OT Unavailable Unavaila Renu Paul NP Unavailable [phone] Eladio Mcrae MD Unavailable [phone] Marcy Schroeder RN Unavailable [phone] Chelsea Barker RN Unavailable Unavail able Marina Le RN Unavailable [phone] Encounter Details Date Type Department Care Team (Latest Contact Info) Description 06/09/2025 Results Follow-Up [facility] Transplant Liver [address] [facility] [address] [place] [address] Chelsea Barker, TYRA Comprehensive metabolic panel, Protime-INR, eGFR Social History Tobacco Use Types Packs/Day Years Used Date Smoking Tobacco: Former Cigarettes 0.5 51 1 - 2020 Smokeless Tobacco: Never [facility] Utilities Answer Date Recorded In the past 12 months has th e [employer], gas, oil, or water [employer] threatened to shut off services in your [...] often do you attend chur ch or evangelical services? Never 10/05/2024 Do you belong to [...] any time in the past 12 m onths, were you homeless or living in a [...] on file Legal Sex Female 8:22 AM DEBUG TECHNICIAN Gender Identity Female 11/15/2021 2:30 AM [...] Date Last Indicated Resolved Time COVID: Suspected 06/28/2025 06/28/2025 06/29/2025 12:02 AM DEBUG TECHNICIAN Ring Surveillance: Raz howell Comment:[id number] 07/01/2025 07/01/2025 07/06/2025 9:[address] documented as of this encounter Care Teams Crate Maker Relationship Specialty Start Date End Date Maddy Romano MD [address] [place] [address] PCP - General 09/28/16 Manas Ibarra MD [address] [place] [address] Referring Physician Thoracic Surgery 11/05/18 Zion Barton MD [address] [place] [address] Radiation Oncologist Radiation Oncology 05/05/19 Molina Charles MD 1 [facility] [address] [place] [address] Referring Physician Transplant Hepatology 12/15/20 Karuna Maria OT Occupational Therapist Occupational Therapy 09/20/22 Renu Treviño NP [address] [facility] [address] [place] [address] Nurse Practitioner Radiation Oncology 11/08/22 Eladio Mcrae MD [address] [place] [address] Referring Physician Obstetrics and Gynecology 11/15/22 Marcy Schroeder, RN [address] [place] [address] Undergraduate Advisor 04/27/24 Chelsea Barker, retail sales merchandiserUndergraduate Advisor 11/13/24 Marina Le, RN [address] [place] [address] [facility] Outpatient Side Laster Tack 07/12/25 documented as of this encounter
--- OUTSIDE RECORDS SUMMARY | 2025-07-26 17:20 | XMS_ITS | Encounter Summary ---
Author Organization [facility] of [facility] Address [address] [place] [address] Phone Care Team Providers Care Informatica Mdm Developer Name Role Phone Maddy Romano MD Primary Care Provider [phone] Astrid Haq BALLPOINT PEN ASSEMBLY MACHINE OPERATOR Unavailable Manas Ibarra MD Unavailable Zion Barton MD Unavailable Molina Charles MD Unavailable [phone] Inés Lemus RN Unavailable [phone] Karuna Maria OT Unavailable Unavaila Renu Paul NP Unavailable [phone] Eladio Mcrae MD Unavailable [phone] Marcy Schroeder RN Unavailable [phone] Briana Poe RN Unavailable [phone] Marina Le RN Unavailable Chelsea Barker RN Unavailable Unavail able Marina Le RN Unavailable [phone] Encounter Details Date Type Department Care Team (Late st Contact Info) Description 09/07/2021 Orders Only [facility] Scanning, Provider Social History Tobacco Use Types Packs/Day Years Used Date Smoking Tobacco: Former Cigarettes Q uit: 2010 Smokeless Tobacco: Never Comments No Sex and Gender Information Value Date Recorded Sex Assigned at Not on file Legal Sex Female 8:22 AM SCIENCE SPECIALIST Gender Identity Female 11/15/2021 2:30 AM [...] encounter Results * SCAN - LABS (09/07/2021) Provider Scanning Final Result documented in this [...] COVID: Suspected 09/24/2024 09/24/2024 09/24/2024 3:13 PM SCIENCE SPECIALIST COVID: Suspected 06/28/2025 06/28/2025 06/29/2025 12:02 AM SCIENCE SPECIALIST Ring Surveillance: C. auris Comment:[id number] 07/01/2025 07/01/2025 07/06/2025 9:[address] documented as of this encounter Care Teams Informatica Mdm Developer Relationship Specialty Start Date End Date Maddy Romano MD [address] [place] [address] PCP - General 09/28/16 Astrid Haq NP [address] [place] [address] Nurse Practitioner Radiation Oncology 11/05/18 11/07/22 Manas Ibarra MD [address] [place] [address] Referring Physician Thoracic Surgery 11/05/18 Zion Barton MD [address] [place] [address] Radiation Oncologist Radiation Oncology 05/05/19 Molina Charles MD 1 [facility] [address] [place] [address] Referring Physician Transplant Hepatology 12/15/20 Inés Lemus RN [address] [facility] [address] [place] [address] General Matcher 10/31/21 5 Karuna Maria, OT Occupational Therapist Occupational Therapy 09/20/22 Renu Treviño NP [address] [facility] [address] [place] [address] Nurse Practitioner Radiation Oncology 11/08/22 Eladio Mcrae MD [address] [place] [address] Referring Physician Obstetrics and Gynecology 11/15/22 Marcy Schroeder RN [address] [place] [address] General Matcher 04/27/24 Briana Poe RN [address] [address] [facility] Outpatient Grease Worker 04/30/24 05/28/24 Marina Le RN [address] [address] [facility] Outpatient Grease Worker 10/05/24 10/26/24 Chelsea Barker, travel rn orGeneral Matcher 11/13/24 Marina Le, RN [address] [id number] [facility] Outpatient Grease Worker 07/12/25 documented as of this encounter
--- OUTSIDE RECORDS SUMMARY | 2025-07-26 17:20 | XMS_ITS | Encounter Summary ---
Author Organization [facility] Healthcare Address [address] [place] [address] Care Team Providers Care Pilot Boat Captain Name Role Phone Maddy Romano MD Primary Care Provider + [phone] Manas Ibarra MD Unavailable Zion Barton MD Unavailable Molina Charles MD Unavailable [phone] Karuna Maria OT Unavailable Unavaila Renu Paul NP Unavailable [phone] Eladio Mcrae MD Unavailable [phone] Marcy Schroeder RN Unavailable [phone] Chelsea Barker RN Unavailable Unavail able Marina Le RN Unavailable [phone] Encounter Details Date Type Department Care Team (Latest Contact Info) Description 05/31/2025 Results Follow-Up [facility] Transplant Liver [address] [facility] [address] [place] [address] Chelsea Barker, TYRA Transthoracic Echo (TTE) With Bubble Study Social History Tobacco Use Types Packs/Day Years Used Date Smoking Tobacco: Former Cigarettes 0.5 51 1 970 - 2020 Smokeless Tobacco: Never [facility] Utilities Answer Date Recorded In the past 12 months has th e [employer], gas, oil, or water [employer] threatened to shut off services in [...] attend chur ch or catholic services? 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 Gender Identity Female 11/15/2021 2:30 AM [...] COVID: Suspected 06/28/2025 06/28/2025 06/29/2025 12:02 AM FIELD INSPECTOR Ring Surveillance: Raz howell Comment:[id number] 07/01/2025 07/01/2025 07/06/2025 9:[address] documented as of this encounter Care Teams Pilot Boat Captain Relationship Specialty Start Date End Date Maddy Romano MD [address] [place] [address] PCP - General 09/28/16 Manas Ibarra MD [address] [place] [address] Referring Physician Thoracic Surgery 11/05/18 Zion Barton MD [address] [place] [address] Radiation Oncologist Radiation Oncology 05/05/19 Molina Charles MD 1 [facility] [address] [place] [address] Referring Physician Transplant Hepatology 12/15/20 Karuna Maria OT Occupational Therapist Occupational Therapy 09/20/22 Renu Treviño NP [address] [facility] [address] [place] [address] Nurse Practitioner Radiation Oncology 11/08/22 Eladio Mcrae MD [address] [place], [place] [address] Referring Physician Obstetrics and Gynecology 11/15/22 Marcy Schroeder, RN [address] [place] [address] A And P Mechanic 04/27/24 Chelsea Barker, residency coordinatorA And P Mechanic 11/13/24 Marina Le, RN [address] [facility] [address] [place] [address] [facility] Outpatient Architecture Instructor 07/12/25 documented as of this encounter
--- OUTSIDE RECORDS SUMMARY | 2025-07-26 17:20 | XMS_ITS | Encounter Summary ---
Author Organization [facility] Healthcare Address [address] [place] [address] Care Team Providers Care Professor Of History Name Role Phone Maddy Romano MD Primary Care Provider + [phone] Manas Ibarra MD Unavailable Zion Barton MD Unavailable Molina Charles MD Unavailable [phone] Karuna Maria OT Unavailable Unavaila Renu Paul NP Unavailable [phone] Eladio Mcrae MD Unavailable [phone] Marcy Schroeder RN Unavailable [phone] Chelsea Barker RN Unavailable Unavail able Marina Le RN Unavailable [phone] Encounter Details Date Type Department Care Team (Latest Contact Info) Description 06/16/2025 Results Follow-Up [facility] Transplant Liver [address] [facility] [address] [place] [address] Chelsea Barker, TYRA Comprehensive metabolic panel, CBC without differential, Protime-INR, Additional followed-up results: 2 Social History Tobacco Use Types Packs/Day Years Used Date Smoking Tobacco: Former Cigarettes 0.5 51 1 2020 Smokeless Tobacco: Never [facility] [...] often do you attend chur ch or sikhism services? 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 of this encounter Plan of Treatment Scheduled Procedures Name Priority Associated Diagnoses Date/Ti wy TRANSPLANT LIVER Metabolic dysfunction-associated steatohepatitis (MASH) TRANSPLANT KIDNEY Metabolic dysfunction-associated steatohepatitis (MASH) COLONOSCOPY Routine adult health maintenance LYONS (nonalcoholic steatohepatitis) documented as of this encounter Visit Diagnoses Not on filedocumented in this encounter Additional Health Concerns Infection Onset Date Last Indicated Resolved Time COVID: Suspected 06/28/2025 06/28/2025 06/29/2025 12:02 AM TRUCK RAILROAD AND BUS MOTOR MECHANIC Ring Surveillance: C. auris Comment:[id number] 07/01/2025 07/01/2025 07/06/2025 9:[address] documented as of this encounter Care Teams Professor Of History Relationship Specialty Start Date End Date Maddy Romano MD [address] [place] [address] PCP - General 09/28/16 Manas Ibarra MD [address] [place] [address] Referring Physician Thoracic Surgery 11/05/18 Zion Barton MD [address] [place] [address] Radiation Oncologist Radiation Oncology 05/05/19 Molina Charles MD 1 [facility] [address] [place] [address] Referring Physician Transplant Hepatology 12/15/20 Karuna Maria OT Occupational Therapist Occupational Therapy 09/20/22 Renu Treviño NP [address] [facility] [address] [place] [address] Nurse Practitioner Radiation Oncology 11/08/22 Eladio Mcrae MD [address] [place] [address] Referring Physician Obstetrics and Gynecology 11/15/22 Marcy Schroeder, RN [address] [place] [address] Door Cutter 04/27/24 Chelsea Barker, toe lining closerDoor Cutter 11/13/24 Marina Le, RN [address] [facility] [address] [place] [address] [facility] Outpatient Production Cook 07/12/25 documented as of this encounter
--- OUTSIDE RECORDS SUMMARY | 2025-07-26 17:20 | XMS_ITS | Patient Health Record ---
Author Organization [facility] Address [address] [place], [place] [id number] Care Team Providers Care Transportation Supervisor Name Role Phone IVAN HARDIN Unavailable [phone] Leisa Romano Unavailable Unavailable BALDEV TAPIA Unavailable [phone] Allergies Allergen (clinical drug ingredient) Drug/Non Drug Allergy documented on EMR Reaction Allergy Type Onset Date Status Substance with sulfonamide structure and antibacterial mechanism of action (substance) Sulfa Antibiotics Unknown Drug Allergy Active Reason For Referral No Information Medications Medication SIG (Take, Route, Frequency, Duration) Notes Start Date End Date Status Ciclopirox 8 % Solution 1 application Externally to toenails. Once a day.; Duration: 30 days Remove medication once a week with rubbing alcohol. one bottle, 6.6mL or similar. Active Pantoprazole Sodium-NaCl 40-0.9 MG/100ML Solution as directed Intravenous Active Ondansetron 4 MG Tablet Disintegrating 1 tablet on the tongue and allow to dissolve Orally Once a day Active Spironolactone 100 MG Tablet 1 tablet Orally Once a day Active Lactulose 20 GM Packet 1 packet as neede d Orally Once a day Active Xifaxan 550 MG Tablet 1 tablet Orally Twice a day Active Bumetanide 1 MG Tablet 1 tablet Orally O nce a day Active Immunizations Vaccine Route Administration [...] 03/24/2014 Ad ministered Tdap Unknown 03/24/2014 Administered Vital Signs Height-cm 172.72 cm 03/18/2025 Weight-kg 90.72 kg 03/18/2025 Height 68 in 03/18/2025 Weight 200 lbs 03/18/2025 BMI 30.41 kg/m2 03/18/2025 Encounters Encounter Location Date Provider Diagnosis [address] [id number] 03/18/2025 BALDEV TAPIA Tinea unguium B35.1 ; Pain in right toe(s) M79.674 ; Pain in left toe(s) M79.675 ; Atherosclerosis of [place] arteries of extremities with intermittent claudication, bilateral legs I70.213 and Type 2 diabetes mellitus with other circulatory complications E11.[address] [id number] 12/10/2024 IVAN HARDIN Tinea unguium B35.1 ; Pain in right toe(s) M79.674 ; Pain in left toe(s) M79.675 ; Atherosclerosis of [place] arteries of extremities with intermittent claudication, bilateral [...] subungual debris and necrotic tissue removed 03/18/2025 Tinea unguium (ICD-10 - B35.1) NAIL DEBRIDEMENT: Nails 1-5 Bilateral were debrided extensively with nail nippers and emery board, reducing length and girth to pink healthy tissue with any subungual debris and necrotic tissue removed 12/10/2024 Pain in right toe(s) (ICD-10 - M79.674) 03/18/2025 Pain in right toe(s) (ICD-10 - M79.674) 03/18/2025 Pain in left toe(s) (ICD-10 - M79.675) 12/10/2024 Pain in left toe(s) (ICD-10 - M79.675) 12/10/2024 Atherosclerosis of [place] arteries of extremities with intermittent claudication, bilateral legs (ICD-10 - I70.213) 03/18/2025 Atherosclerosis of [place] arteries of extremities with intermittent claudication, bilateral [...] well as the Amputation Prevention Guide. 12/10/2024 Type 2 diabetes mellitus with other [...] not infected. As long as it gets psychology physician and fades we will monitor. If it gets dark, drains, changes color or shape than I would recommend biopsy Plan Of Treatment No Information Insurance Providers Payer Name Payer Address Payer Phone Subscriber Number Group Number Insured Name Patient Relationship to Insured Coverage Start Date Coverage End Date [facility] [address] [address] [place], [place] [id number] [address] [place] Self - patient is the insured Medical (General) History Medical History History ICD Code Pneumonia anemia asthma - mild intermittent Leg/Feet cramps Liver disease Sleep apnea Diabetic
--- OUTSIDE RECORDS SUMMARY | 2025-07-26 17:22 | XMS_ITS | Encounter Summary ---
Author Organization [facility] Address [address] [place] [address] Phone Care Team Providers Care Owner Spa Director Name Role Phone Maddy Romano MD Primary Care Provider [phone] Astrid Haq AIR CONDITIONING SUPERVISOR Unavailable [phone] Manas Ibarra MD Unavailable Zion Barton MD Unavailable Molina Charles MD Unavailable [phone] Inés Lemus RN Unavailable [phone] Karuna Maria OT Unavailable Unavaila Renu Paul NP Unavailable [phone] Eladio Mcrae MD Unavailable [phone] Marcy Schroeder RN Unavailable [phone] Briana Poe RN Unavailable [phone] Marina Le RN Unavailable [phone] Chelsea Barker RN Unavailable Unavail able Marina Le RN Unavailable [phone] Encounter Details Date Type Department Care Team (Late st Contact Info) Description 12/25/2019 Orders Only [facility] Scanning, Provider Social History Tobacco Use Types Packs/Day Years Used Date Smoking Tobacco: Former Cigarettes Q uit: 2010 Smokeless Tobacco: Never Comments No Sex and Gender Information Value Date Recorded Sex Assigned at Not on file 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 auris Comment:[id number] 07/01/2025 07/01/2025 07/06/2025 9:[address] documented as of this encounter Care Teams Owner Spa Director Relationship Specialty Start Date End Date Maddy Romano MD [address] [place] [address] PCP - General 09/28/16 Astrid Haq, NAGI [address] [place] [address] Nurse Practitioner Radiation Oncology 11/05/18 11/07/22 Manas Ibarra MD [address] [place] [address] Referring Physician Thoracic Surgery 11/05/18 Zion Barton MD [address] [place] [address] Radiation Oncologist Radiation Oncology 05/05/19 Molina Charles MD 1 [facility] [address] [place] [address] Referring Physician Transplant Hepatology 12/15/20 Inés Lemus, TYRA [address] [facility] [address] [place] [address] Straw Boss 10/31/21 5 Karuna Maria, OT Occupational Therapist Occupational Therapy 09/20/22 Renu Treviño, AIR CONDITIONING SUPERVISOR [address] [facility] [address] [place] [address] Nurse Practitioner Radiation Oncology 11/08/22 Eladio Mcrae MD [address] [place] [address] Referring Physician Obstetrics and Gynecology 11/15/22 Marcy Schroeder, RN [address] [place] [address] Straw Boss 04/27/24 Briana Poe RN [address] [address] SHOP Outpatient Electric Clock Mechanic 04/30/24 05/28/24 Marina Le RN [address] [address] SHOP Outpatient Electric Clock Mechanic 10/05/24 10/26/24 Chelsea Barker, underwear welterStraw Boss 11/13/24 Marina Le, RN [address] [address] [facility] Outpatient Electric Clock Mechanic 07/12/25 documented as of this encounter
--- OUTSIDE RECORDS SUMMARY | 2025-07-26 17:22 | XMS_ITS | Encounter Summary ---
Author Organization [facility] Healthcare Address [address] [place] [address] Care Team Providers Care Kettle Fry Cook Operator Name Role Phone Maddy Romano MD Primary Care Provider + [phone] Astrid Haq NP Unavailable [phone] Manas Ibarra MD Unavailable Zion Barton MD Unavailable Molina Charles MD Unavailable [phone] Inés Lemus RN Unavailable +[phone] Karuna Maria OT Unavailable Unavaila Renu Paul NP Unavailable [phone] Eladio Mcrae MD Unavailable [phone] Marcy Schroeder RN Unavailable [phone] Briana Poe RN Unavailable [phone] Marina Le RN Unavailable [phone] Chelsea Barker RN Unavailable Unavail able Marina Le RN Unavailable [phone] Reason for Visit * Reason Onset Date Comments Ready to schedule 04/25/2022 Encounter Details Date Type Department Care Team (Late st Contact Info) Description 04/25/2022 Telephone [facility] Specialty Services [address] [place] [phone] Miscellaneous, Not In File Ready to schedule [...] on file Legal Sex Female 8:22 AM PROCUREMENT AGENT Gender Identity Female 11/15/2021 2:30 AM [...] COVID: Suspected 09/24/2024 09/24/2024 09/24/2024 3:13 PM PROCUREMENT AGENT COVID: Suspected 06/28/2025 06/28/2025 06/29/2025 12:02 AM PROCUREMENT AGENT Ring Surveillance: C. auris Comment:[id number] 07/01/2025 07/01/2025 07/06/2025 9:[address] documented as of this encounter Care Teams Kettle Fry Cook Operator Relationship Specialty Start Date End Date Maddy Romano MD [address] [place] [address] PCP - General 09/28/16 Astrid Haq NP [address] [place], [place] [address] Nurse Practitioner Radiation Oncology 11/05/18 11/07/22 Manas Ibarra MD [address] [place], [place] [address] Referring Physician Thoracic Surgery 11/05/18 Zion Barton MD [address] [place], [place] [address] Radiation Oncologist Radiation Oncology 05/05/19 Molina Charles MD [address] [place] [address] [address] [place] [address] Referring Physician Transplant Hepatology 12/15/20 Inés Lemus, RN [address] [facility] [address] [place] [address] Tank Cleaner 10/31/21 5 Karuna Maria, OT Occupational Therapist Occupational Therapy 09/20/22 Renu Treviño NP [address] [facility] [address] [place] [address] Nurse Practitioner Radiation Oncology 11/08/22 Eladio Mcrae MD [address] [place] [address] Referring Physician Obstetrics and Gynecology 11/15/22 Marcy Schroeder, RN [address] [place] [address] Tank Cleaner 04/27/24 Briana Poe RN [address] [address] [facility] Outpatient Private Duty Nurse 04/30/24 05/28/24 Marina Le, RN [address] [address] [facility] Outpatient Private Duty Nurse 10/05/24 10/26/24 Chelsea Barker, accounting representativeTank Cleaner 11/13/24 Marina Le, RN [address] [address] [facility] Outpatient Private Duty Nurse 07/12/25 documented as of this encounter
--- OUTSIDE RECORDS SUMMARY | 2025-07-26 17:22 | XMS_ITS ---
Care Plan Created on: July 26, 2025 Aleah Levine : 1960 Sex: Female Author Organization [facility] al Address [address] [place] [address] Care Team Providers Care R D Intern Name Role Phone Maddy Romano MD Primary Care Provider [phone] Manas Ibarra MD Unavailable Zion Barton MD Unavailable Molina Charles MD Unavailable [phone] Karuna Maria OT Unavailable Unavaila Renu Paul NP Unavailable [phone] Eladio Mcrae MD Unavailable [phone] Marcy Schroeder RN Unavailable [phone] Chelsea Barker RN Unavailable Unavail able Marina Le RN Unavailable [phone] Active Problems Problem Noted Date Diagnosed Date Thrombocytopenia 07/05/2025 Assessment & Plan (07/09/2025 6:54 AM CONCRETE PAVING SUPERVISOR): Secondary to end stage liver disease, CKD, and acute illness. - CTM, transfuse PRN Assessment & Plan (07/08/2025 7:08 AM CONCRETE PAVING SUPERVISOR): Secondary to end stage liver disease, CKD, and acute illness. - CTM, transfuse PRN Assessment & Plan (07/07/2025 9:19 AM CONCRETE PAVING SUPERVISOR): Secondary to end stage liver disease, CKD, and acute illness. - CTM, transfuse PRN Assessment & Plan (07/06/2025 10:53 AM CONCRETE PAVING SUPERVISOR): Secondary to end stage liver disease, CKD, and acute illness. - CTM, transfuse PRN Assessment & Plan (07/05/2025 11:27 PM CONCRETE PAVING SUPERVISOR): Secondary to end stage liver disease, CKD, and acute illness. - CTM, transfuse PRN Multiple organ transplant candidate 06/30/2025 Assessment & Plan (06/30/2025 3:49 PM CONCRETE PAVING SUPERVISOR): See above Assessment & Plan (06/30/2025 4:55 PM CONCRETE PAVING SUPERVISOR): We had a long discussion with the patient and her regarding the benefits of receiving a liver and kidney organ donation from an individual on HIV PrEP with Descovy (to emphasize patient is NOT HIV+) with high risk behaviors who is donating for reasons unrelated to infection or HIV with negative pre-transplant HIV testing by both 4th generation test and NAAT. We feel that the risk of missing an acute HIV infection and acquiring HIV from this donor is very low (<1%) compared with much higher risk of mortality from not receiving a needed transplant. Out of an abundance of caution, we counseled on the option of taking PEP with Biktarvy for 1 month post-transplant with routine monitoring by the transplant team as long as she tolerates this medication. The patient and her were agreeable to this plan. Plan: - Start Biktarvy daily now prior to transplant. Please space from divalent cations or tube feeds (2 hrs before or 6 hrs after). If she is intubated post-transplant with feeding tube, Biktarvy can be dissolved in 240 mLs of water for administration. Biktarvy is generally considered safe in individuals with CrCl >15 - Would continue Biktarvy for 1 month post transplant (28 days) as long as is tolerated. If not tolerated, given low risk, could stop this medication. - We will have the lab add an HIV RNA to the patient's pre-transplant labs as part of pre-transplant screening if possible. --> update, cannot be added on to any pre-transplant labs so will not be able to have this data point - Routine post-transplant monitoring and prophylaxis per the transplant team. 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 Initially admitted for possible HE, now returned to baseline. Had been planned for transplant 06/30, but case aborted due to poor liver donor quality. - continue rifaximin and lactulose tid - transition back to Bumex PO 2 mg BID, spironolactone 200 mg daily -- having good urine output - continue PPI daily post cardioversion - daily MELD labs - hepatology following, active listing on transplant list. Does not need to remain inpatient while waiting on transplant if all else is stable. 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 Initially admitted for possible HE, now returned to baseline. Had been planned for transplant 06/30, but case aborted due to poor liver donor quality. - continue rifaximin and lactulose tid - transition back to Bumex PO 2 mg BID, spironolactone 200 mg daily -- having good urine output - continue PPI daily post cardioversion - daily MELD labs - hepatology following, active listing on transplant list. Does not need to remain inpatient while waiting on transplant if all else is stable. 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 Initially admitted for possible HE, now returned to baseline. Had been planned for transplant 06/30, but case aborted due to poor liver donor quality. - continue rifaximin and lactulose tid - transition back to Bumex PO 2 mg BID, spironolactone 200 mg daily--having good urine output - continue PPI daily post cardioversion - daily MELD labs - hepatology following, active listing on transplant list. Does not need to remain inpatient while waiting on transplant if all else is stable. 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 Initially admitted for possible HE, now returned to baseline. Had been planned for transplant 06/30, but case aborted due to poor liver donor quality. 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 Initially admitted for possible HE, now returned to baseline. Had been planned for transplant 06/30, but case aborted due to poor liver donor quality. - continue rifaximin and lactulose - transition back to Bumex PO 2 mg BID, spironolactone 200 mg daily - continue PPI daily post cardioversion - daily MELD labs - hepatology following TR (acute kidney injury) 06/29/2025 Assessment & Plan (07/09/2025 6:54 AM CONCRETE PAVING SUPERVISOR): Baseline Cr around 1.3 - 1.7, presented on admission with Cr around 2-2.5 that mildly improved with albumin. Had been planned for liver-kidney transplant but case aborted as above. Developed oliguric TR with Cr peak at 5.6, now improving. Favored to be cardiorenal (possibly poor renal perfusion with Aflutter RVR) and contrast- induced nephropathy from contrast load on 06/30, superimposed on poor renal reserve. Less likely HRS. - S/p aggressive IV diuresis in ICU with improvement in urine output - Transitioned to Bumex 2 mg PO BID, spironolactone 200 mg daily - Strict I&Os, CTM renal function - Nephrology following - Nephro follow up appointment on 07/27/2025 at 9:50 a.m. Assessment & Plan (07/08/2025 1:36 PM CONCRETE PAVING SUPERVISOR): Baseline Cr around 1.3 - 1.7, presented on admission with Cr around 2-2.5 that mildly improved with albumin. Had been planned for liver-kidney transplant but case aborted as above. Developed oliguric TR with Cr peak at 5.6, now improving. Favored to be cardiorenal (possibly poor renal perfusion with Aflutter RVR) and contrast- induced nephropathy from contrast load on 06/30, superimposed on poor renal reserve. Less likely HRS. - S/p aggressive IV diuresis in ICU with improvement in urine output - Transitioned to Bumex 2 mg PO BID, spironolactone 200 mg daily - Strict I&Os, CTM renal function - Nephrology following - Nephro follow up appointment on 07/27/2025 at 9:50 a.m. Assessment & Plan (07/07/2025 9:19 AM CONCRETE PAVING SUPERVISOR): Baseline Cr around 1.3 - 1.7, presented on admission with Cr around 2-2.5 that mildly improved with albumin. Had been planned for liver-kidney transplant but case aborted as above. Developed oliguric TR with Cr peak at 5.6, now improving. Favored to be cardiorenal (possibly poor renal perfusion with Aflutter RVR) and contrast- induced nephropathy from contrast load on 06/30, superimposed on poor renal reserve. Less likely HRS. - s/p aggressive IV diuresis in ICU with improvement in urine output - transitioned to Bumex 2 mg PO BID, spironolactone 200 mg daily - strict I&Os, CTM renal function - nephrology following Assessment & Plan (07/06/2025 10:53 AM CONCRETE PAVING SUPERVISOR): Baseline Cr around 1.3 - 1.7, presented on admission with Cr around 2-2.5 that mildly improved with albumin. Had been planned for liver-kidney transplant but case aborted as above. Developed oliguric TR with Cr peak at 5.6, now improving. Favored to be cardiorenal (possibly poor renal perfusion with Aflutter RVR) and contrast- induced nephropathy from contrast load on 06/30, superimposed on poor renal reserve. Less likely HRS. - s/p aggressive IV diuresis in ICU with improvement in urine output - transitioned to Bumex 2 mg PO BID, spironolactone 200 mg daily - strict I&Os, CTM renal function - nephrology following Assessment & Plan (07/05/2025 11:27 PM CONCRETE PAVING SUPERVISOR): Baseline Cr around 1.3 - 1.7, presented on admission with Cr around 2-2.5 that mildly improved with albumin. Had been planned for liver-kidney transplant but case aborted as above. Developed oliguric TR with Cr peak at 5.6, now improving. Favored to be cardiorenal (possibly poor renal perfusion with Aflutter RVR) and contrast- induced nephropathy from contrast load on 06/30, superimposed on poor renal reserve. Less likely HRS. - s/p aggressive IV diuresis in ICU with improvement in urine output - transitioned to Bumex 2 mg PO BID, spironolactone 200 mg daily - strict I&Os, CTM renal function - nephrology following Assessment & Plan (06/30/2025 9:29 AM CONCRETE PAVING SUPERVISOR): Cr on presentation at 2.21 -> 2.58. Baseline 1.5-1.6. Hepatology following, pre- renal vs hepatorenal syndrome. Urine cr 93.5, urine urea nitrogen 264, urine sodium 44. - Trend BMP - Cr 2.33 today - Hepatology following - appreciate recs - Receiving albumin challenge with 25g 25% albumin q6h - if not improving by 48 hours of volume expansion will consider diagnosis of HRS Assessment & Plan (06/29/2025 11:32 PM CONCRETE PAVING SUPERVISOR): Baseline Cr 1.6, Cr on presentation 2.58. DDx is pre-renal vs. HRS. Albumin challenge will refine DDx. - Receiving albumin challenge 25g 25% albumin q6h - Trend BMP q24 Assessment & Plan (06/29/2025 8:08 PM CONCRETE PAVING SUPERVISOR): Cr on presentation at 2.21 -> 2.58. Baseline 1.5-1.6. Hepatology following, pre- renal vs hepatorenal syndrome. Urine cr 93.5, urine urea nitrogen 264, urine sodium 44. - Hepatology following - appreciate recs - Receiving albumin challenge with 25g 25% albumin q6h - if not improving by 48 hours of volume expansion will consider diagnosis of HRS - holding home diuretics, avoid nephrotoxic medications - Trend BMP Sinus tachycardia 06/29/2025 Assessment & Plan (06/30/2025 3:49 PM CONCRETE PAVING SUPERVISOR): EKGs since presentation have shown complete RBBB, aflutter and afib with RVR. Received metoprolol 5mg IV x3 in the ED. Currently aflutter. - Proceed with CTA to rule out L atrial appendage thrombus prior to surgery --> 06/30 found left atrial enlargement without thrombus in the left atrial appendage. Assessment & Plan (06/30/2025 1:10 PM CONCRETE PAVING SUPERVISOR): EKGs since presentation have shown complete RBBB, sinus tachycardia, aflutter and afib with RVR. Received metoprolol 5mg IV x3 in the ED. Currently aflutter. - metoprolol 5mg IV - Proceed with CTA to rule out L atrial appendage thrombus prior to surgery Assessment & Plan (06/29/2025 8:08 PM CONCRETE PAVING SUPERVISOR): EKGs since presentation have shown complete RBBB, sinus tachycardia, aflutter and afib with RVR. Received metoprolol 5mg IV x3 in the ED. Currently in sinus tachycardia. BP 92/55. Will hold off on further metoprolol for now. Atrial fibrillation and flutter 06/29/2025 Assessment & Plan (07/09/2025 1:29 PM CONCRETE PAVING SUPERVISOR): Known history of atrial flutter not on AC. Presented with periods of Afib/flutter RVR early in admission, suspect provoked in setting of decompensated cirrhosis. - CTA coronary 06/30 without evidence of TAN thrombus - s/p DCCV x 1 with conversion to NSR 06/30 - s/p amio IV bolus x 1 for Afib with RVR with return to NSR 07/05 - Needs at least 4 weeks of anticoagulation post-cardioversion per GI avoid DOAC as listed for transplant, transitioned to warfarin 4 mg daily in ICU (will need AC clinic follow up at DC). Nearly at goal and has close INR follow-up, so patient will be safe for discharge today. - Goal INR 2-3 --> await goal then anticipate PCP to follow-up INR Saturday with f/u visit also . - Not on heparin bridge due to thrombocytopenia, nor Lovenox due to renal function - Telemetry monitoring Assessment & Plan (07/08/2025 1:36 PM CONCRETE PAVING SUPERVISOR): Known history of atrial flutter not on AC. Presented with periods of Afib/flutter RVR early in admission, suspect provoked in setting of decompensated cirrhosis. - CTA coronary 06/30 without evidence of TAN thrombus - s/p DCCV x 1 with conversion to NSR 06/30 - s/p amio IV bolus x 1 for Afib with RVR with return to NSR 07/05 - Needs at least 4 weeks of anticoagulation post-cardioversion per GI avoid DOAC as listed for transplant, transitioned to warfarin 4 mg daily in ICU (will need AC clinic follow up at DC) - Goal INR 2-3 --> await goal then anticipate PCP to follow-up INR next week - Not on heparin bridge due to thrombocytopenia, nor Lovenox due to renal function - Telemetry monitoring Assessment & Plan (07/07/2025 9:19 AM CONCRETE PAVING SUPERVISOR): Known history of atrial flutter not on AC. Presented with periods of Afib/flutter RVR early in admission, suspect provoked in setting of decompensated cirrhosis. - CTA coronary 06/30 without evidence of TAN thrombus - s/p DCCV x 1 with conversion to NSR 06/30 - s/p amio IV bolus x 1 for Afib with RVR with return to NSR 07/05 - needs 4 weeks of anticoagulation post-cardioversion per GI avoid DOAC as listed for transplant, transitioned to warfarin 4 mg daily in ICU (will need AC clinic follow up at DC) - not on heparin bridge due to thrombocytopenia, nor Lovenox due to renal function - telemetry monitoring Assessment & Plan (07/06/2025 10:53 AM CONCRETE PAVING SUPERVISOR): Known history of atrial flutter not on AC. Presented with periods of Afib/flutter RVR early in admission, suspect provoked in setting of decompensated cirrhosis. - CTA coronary 06/30 without evidence of TAN thrombus - s/p DCCV x 1 with conversion to NSR 06/30 - s/p amio IV bolus x 1 for Afib with RVR with return to NSR 07/05 - needs 4 weeks of anticoagulation post-cardioversion per GI avoid DOAC as listed for transplant, transitioned to warfarin 4 mg daily in ICU - not on heparin bridge due to thrombocytopenia, nor Lovenox due to renal function - telemetry monitoring Assessment & Plan (07/05/2025 11:27 PM CONCRETE PAVING SUPERVISOR): Known history of atrial flutter not on AC. Presented with periods of Afib/flutter RVR early in admission, suspect provoked in setting of decompensated cirrhosis. - CTA coronary 06/30 without evidence of TAN thrombus - s/p DCCV x 1 with conversion to NSR 06/30 - s/p amio IV bolus x 1 for Afib with RVR with return to NSR 07/05 - needs 4 weeks of anticoagulation post-cardioversion, transitioned to warfarin 4 mg daily in ICU - not on heparin bridge due to thrombocytopenia, nor Lovenox due to renal function - telemetry monitoring Assessment & Plan (06/30/2025 3:49 PM CONCRETE PAVING SUPERVISOR): EKGs since presentation have shown complete RBBB, aflutter and afib with RVR. Received metoprolol 5mg IV x3 in the ED. Currently aflutter. - Proceed with CTA to rule out L atrial appendage thrombus prior to surgery --> 06/30 found left atrial enlargement without thrombus in the left atrial appendage. Assessment & Plan (06/30/2025 1:10 PM CONCRETE PAVING SUPERVISOR): EKGs since presentation have shown complete RBBB, sinus tachycardia, aflutter and afib with RVR. Received metoprolol 5mg IV x3 in the ED. Currently aflutter. - metoprolol 5mg IV - Proceed with CTA to rule out L atrial appendage thrombus prior to surgery Assessment & Plan (06/29/2025 8:08 PM CONCRETE PAVING SUPERVISOR): EKGs since presentation have shown complete RBBB, sinus tachycardia, aflutter and afib with RVR. Received metoprolol 5mg IV x3 in the ED. Currently in sinus tachycardia. BP 92/55. Will hold off on further metoprolol for now. End-stage liver disease 06/29/2025 Assessment & Plan (06/30/2025 3:49 PM CONCRETE PAVING SUPERVISOR): See Liver cirrhosis ESRD (end stage renal disease) 06/29/2025 Assessment & Plan (06/30/2025 3:49 PM CONCRETE PAVING SUPERVISOR): See TR Tardive dyskinesia 06/16/2025 Assessment & Plan (06/30/2025 3:49 PM CONCRETE PAVING SUPERVISOR): New onset of twisting facial and tongue movements over the past few weeks. No history of anti-dopaminergic agents. Patient reports improvement of symptoms since presentation. May be impacting slurred speech. - Consider neuro consult - Continue to monitor for improvement Assessment & Plan (06/30/2025 9:29 AM CONCRETE PAVING SUPERVISOR): New onset of twisting facial and tongue movements over the past few weeks. No history of anti-dopaminergic agents. Patient reports improvement of symptoms since presentation. May be impacting slurred speech. - Consider neuro consult - Continue to monitor for improvement Assessment & Plan (06/29/2025 11:32 PM CONCRETE PAVING SUPERVISOR): Relatively new onset of facial, tongue movements; no hx of anti-dopaminergic or antipsychotic drugs. Improvement of sx since initial presentation but consider etiology related to encephalopathy rather than TD. - Neuro c/s - CTM Assessment & Plan (06/29/2025 8:08 PM CONCRETE PAVING SUPERVISOR): New onset of twisting facial and tongue movements over the past few weeks. No history of anti-dopaminergic agents. Patient reports improvement of symptoms since presentation. May be impacting slurred speech. - Consider neuro consult - Continue to monitor for improvement Assessment & Plan (06/16/2025 11:13 AM CONCRETE PAVING SUPERVISOR): Her involuntary movements and grimacing his strongly suggestive of tardive dyskinesia. However, she has no obvious risk factors for these changes. She has not been on any medications that routinely cause this side effect. Specifically, metoclopramide is not listed among her current medications, nor did she receie this during the hospitalization. I am checking labs to be certain there are no electrolyte abnormalities. Esophageal varices without bleeding 12/01/2024 Class 3 severe obesity due t o excess calories with serious comorbidity and body mass index (BMI) of 40.0 to 44.9 in adult 05/29/2024 Assessment & Plan (05/28/2025 2:23 PM CDT): Estimated body mass index is 40.88 kg/m as calculated from the following: Height as of 05/12/25: 170.2 cm (5' 7). Weight as of this encounter: 118.4 kg (261 lb). Continue to encourage healthy diet, exercise as above. Uptitration of Mounjaro as above. Assessment & Plan (02/23/2025 2:42 PM CDT): Estimated body mass index is 42.1 kg/m as calculated from the following: Height as of this encounter: 170.2 cm (5' 7). Weight as of this encounter: 121.9 kg (268 lb 12.8 oz). Continue to encourage healthy diet, exercise as above. Uptitration of Mounjaro as above. Stage 3 chronic kidney disease 03/06/2023 Assessment & Plan (07/09/2025 6:54 AM CONCRETE PAVING SUPERVISOR): Baseline Cr around 1.3 - 1.7, presented on admission with Cr around 2-2.5 that mildly improved with albumin. Had been planned for liver-kidney transplant but case aborted as above. Developed oliguric TR with Cr peak at 5.6, now improving. Favored to be cardiorenal (possibly poor renal perfusion with Aflutter RVR) and contrast- induced nephropathy from contrast load on 06/30, superimposed on poor renal reserve. Less likely HRS. - S/p aggressive IV diuresis in ICU with improvement in urine output - Transitioned to Bumex 2 mg PO BID, spironolactone 200 mg daily - Strict I&Os, CTM renal function - Nephrology following - Nephro follow up appointment on 07/27/2025 at 9:50 a.m. Assessment & Plan (07/08/2025 1:36 PM CONCRETE PAVING SUPERVISOR): Baseline Cr around 1.3 - 1.7, presented on admission with Cr around 2-2.5 that mildly improved with albumin. Had been planned for liver-kidney transplant but case aborted as above. Developed oliguric TR with Cr peak at 5.6, now improving. Favored to be cardiorenal (possibly poor renal perfusion with Aflutter RVR) and contrast- induced nephropathy from contrast load on 06/30, superimposed on poor renal reserve. Less likely HRS. - S/p aggressive IV diuresis in ICU with improvement in urine output - Transitioned to Bumex 2 mg PO BID, spironolactone 200 mg daily - Strict I&Os, CTM renal function - Nephrology following - Nephro follow up appointment on 07/27/2025 at 9:50 a.m. Assessment & Plan (07/07/2025 9:19 AM CONCRETE PAVING SUPERVISOR): Baseline Cr around 1.3 - 1.7, presented on admission with Cr around 2-2.5 that mildly improved with albumin. Had been planned for liver-kidney transplant but case aborted as above. Developed oliguric TR with Cr peak at 5.6, now improving. Favored to be cardiorenal (possibly poor renal perfusion with Aflutter RVR) and contrast- induced nephropathy from contrast load on 06/30, superimposed on poor renal reserve. Less likely HRS. - s/p aggressive IV diuresis in ICU with improvement in urine output - transitioned to Bumex 2 mg PO BID, spironolactone 200 mg daily - strict I&Os, CTM renal function - nephrology following Assessment & Plan (07/06/2025 10:53 AM CONCRETE PAVING SUPERVISOR): Baseline Cr around 1.3 - 1.7, presented on admission with Cr around 2-2.5 that mildly improved with albumin. Had been planned for liver-kidney transplant but case aborted as above. Developed oliguric TR with Cr peak at 5.6, now improving. Favored to be cardiorenal (possibly poor renal perfusion with Aflutter RVR) and contrast- induced nephropathy from contrast load on 06/30, superimposed on poor renal reserve. Less likely HRS. - s/p aggressive IV diuresis in ICU with improvement in urine output - transitioned to Bumex 2 mg PO BID, spironolactone 200 mg daily - strict I&Os, CTM renal function - nephrology following Assessment & Plan (07/05/2025 11:27 PM CONCRETE PAVING SUPERVISOR): Baseline Cr around 1.3 - 1.7, presented on admission with Cr around 2-2.5 that mildly improved with albumin. Had been planned for liver-kidney transplant but case aborted as above. Developed oliguric TR with Cr peak at 5.6, now improving. Favored to be cardiorenal (possibly poor renal perfusion with Aflutter RVR) and contrast- induced nephropathy from contrast load on 06/30, superimposed on poor renal reserve. Less likely HRS. - s/p aggressive IV diuresis in ICU with improvement in urine output - transitioned to Bumex 2 mg PO BID, spironolactone 200 mg daily - strict I&Os, CTM renal function - nephrology following Assessment & Plan (06/30/2025 9:29 AM CONCRETE PAVING SUPERVISOR): Cr on presentation at 2.21 -> 2.58. Baseline 1.5-1.6. Hepatology following, pre- renal vs hepatorenal syndrome. Urine cr 93.5, urine urea nitrogen 264, urine sodium 44. - Trend BMP - Cr 2.33 today - Hepatology following - appreciate recs - Receiving albumin challenge with 25g 25% albumin q6h - if not improving by 48 hours of volume expansion will consider diagnosis of HRS Assessment & Plan (06/29/2025 11:32 PM CONCRETE PAVING SUPERVISOR): See TR Assessment & Plan (06/29/2025 8:08 PM CONCRETE PAVING SUPERVISOR): Cr on presentation at 2.21 -> 2.58. Baseline 1.5-1.6. Hepatology following, pre- renal vs hepatorenal syndrome. Urine cr 93.5, urine urea nitrogen 264, urine sodium 44. - Hepatology following - appreciate recs - Receiving albumin challenge with 25g 25% albumin q6h - if not improving by 48 hours of volume expansion will consider diagnosis of HRS - holding home diuretics, avoid nephrotoxic medications - Trend BMP Assessment & Plan (06/16/2025 11:19 AM CONCRETE PAVING SUPERVISOR): Improved from date of admission to local hospital, secondary to administration of intravenous fluids. We will recheck labs today. 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 Obviously, this will directly impact the MELD score. No change in diuretic doses until results of labs available. Assessment & Plan (05/28/2025 2:23 PM CDT): Baseline Cr 1.2-1.7. Likely 2/2 T2DM with contribution from prior HRS. 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 Initially admitted for possible HE, now returned to baseline. Had been planned for transplant 06/30, but case aborted due to poor liver donor quality. - continue rifaximin and lactulose tid - transition back to Bumex PO 2 mg BID, spironolactone 200 mg daily -- having good urine output - continue PPI daily post cardioversion - daily MELD labs - hepatology following, active listing on transplant list. Does not need to remain inpatient while waiting on transplant if all else is stable. 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 Initially admitted for possible HE, now returned to baseline. Had been planned for transplant 06/30, but case aborted due to poor liver donor quality. - continue rifaximin and lactulose tid - transition back to Bumex PO 2 mg BID, spironolactone 200 mg daily -- having good urine output - continue PPI daily post cardioversion - daily MELD labs - hepatology following, active listing on transplant list. Does not need to remain inpatient while waiting on transplant if all else is stable. 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 Initially admitted for possible HE, now returned to baseline. Had been planned for transplant 06/30, but case aborted due to poor liver donor quality. - continue rifaximin and lactulose tid - transition back to Bumex PO 2 mg BID, spironolactone 200 mg daily--having good urine output - continue PPI daily post cardioversion - daily MELD labs - hepatology following, active listing on transplant list. Does not need to remain inpatient while waiting on transplant if all else is stable. 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 Initially admitted for possible HE, now returned to baseline. Had been planned for transplant 06/30, but case aborted due to poor liver donor quality. 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 Initially admitted for possible HE, now returned to baseline. Had been planned for transplant 06/30, but case aborted due to poor liver donor quality. - continue rifaximin and lactulose - transition back to Bumex PO 2 mg BID, spironolactone 200 mg daily - continue PPI daily post cardioversion - daily MELD labs - hepatology following Assessment & Plan (06/30/2025 3:49 PM CONCRETE PAVING SUPERVISOR): DDx includes hepatic encephalopathy ISO TR (elevated Cr, vulnerability to TR ISO cirrhosis) vs. Infectious process (possibly infectious UA, risk of SBP). UA (contaminated) showed WBCs, LE, UCx pending; BCx pending, RPP negative, CXR unremarkable. Initiated empiric SBP Tx with CTX. No clinical signs of bleeding so low concern for varices at this time. Given no Hx of SBP and no signs of systemic infection, lower concern for SBP. - Contact to verify baseline - C/s hepatology, recs appreciated - Continue 500 mg BID rifaximin and lactulose (CTM for 3-5 BM every day) - Diagnostic paracentesis considered - Patient scheduled for liver/kidney transplant this afternoon and transfer to ICU - Appreciate recs from transplant Assessment & Plan (06/30/2025 12:54 PM CONCRETE PAVING SUPERVISOR): Aleah Levine is a 64 y.o. female with a history of liver cirrhosis secondary to LYONS, ERNESTINE, HTN, DM II, CKD, aflutter, who presented to the ED due to worsening weakness, mental fogginess, and headache. Patient A&Ox3 with confusion improved from initial presentation after initiation of albumin and ceftriaxone. Highest suspicion currently for hepatic encephalopathy in the setting of infection vs TR. UA with +WBC/+leuk esterase pending Ucx, pending Bcx, RPP neg, CXR clear without consolidation, on empiric SBP tx with ceftriaxone. Cr 2.21 -> 2.58 on admission (baseline 1.5-1.6). Hepatology is following. - Patient scheduled for liver/kidney transplant this afternoon and transfer to ICU - Appreciate recs from transplant - Gain collateral information from family to better assess baseline - Hepatology following - appreciate recs - Continue home rifaximin 550mg BID and lactulose for 3-5 BM daily - empiric SBP tx with ceftriaxone - pending infectious work-up with BCx 06/28, Urine cx 06/29, CXR normal - albumin challenge with 25g 25% albumin q6h - Consider diagnostic paracentesis Assessment & Plan (06/29/2025 11:32 PM CONCRETE PAVING SUPERVISOR): DDx includes hepatic encephalopathy ISO TR (elevated Cr, vulnerability to TR ISO cirrhosis) vs. Infectious process (possibly infectious UA, risk of SBP). UA (contaminated) showed WBCs, LE, UCx pending; BCx pending, RPP negative, CXR unremarkable. Initiated empiric SBP Tx with CTX. No clinical signs of bleeding so low concern for varices at this time. Given no Hx of SBP and no signs of systemic infection, lower concern for SBP. - Contact to verify baseline - C/s hepatology, recs appreciated - Continue rifaximin and lactulose (CTM for 3-5 BM every day) - Diagnostic paracentesis considered Assessment & Plan (06/29/2025 8:08 PM CONCRETE PAVING SUPERVISOR): Aleah Levine is a 64 y.o. female with a history of liver cirrhosis secondary to LYONS, ERNESTINE, HTN, DM II, CKD, aflutter, who presented to the ED due to worsening weakness, mental fogginess, and headache. Patient A&Ox3 with confusion improved from initial presentation after initiation of albumin and ceftriaxone. Highest suspicion currently for hepatic encephalopathy in the setting of infection vs TR. UA with +WBC/+leuk esterase pending Ucx, pending Bcx, RPP neg, CXR clear without consolidation, on empiric SBP tx with ceftriaxone. Cr 2.21 -> 2.58 (baseline 1.5-1.6). Hepatology is following. - Gain collateral information from family to better assess baseline - Hepatology following - appreciate recs - Continue home rifaximin 550mg BID and lactulose for 3-5 BM daily - empiric SBP tx with ceftriaxone - pending infectious work-up with BCx 06/28, Urine cx 06/29, CXR normal - albumin challenge with 25g 25% albumin q6h - Consider diagnostic paracentesis Assessment & Plan (06/16/2025 11:10 AM CONCRETE PAVING SUPERVISOR): Decompensated, based on history of hepatic encephalopathy and anasarca. Laboratory work from the recent hospitalization was stable. I will recheck labs today for recalculation of the MELD score. I see no obvious contraindications to transplantation. I made a follow-up visit for 3 months from now. Assessment & Plan (05/28/2025 2:22 PM CDT): MASH cirrhosis, suspected metabolic comorbidity of obesity, T2DM. On transplant list. - Continue management per Hepatology - Dietary interventions, GLP1/GIP RA as above; met with CDE this visit Assessment & Plan (03/06/2023 5:48 PM CDT): [...] 10/10/2022 Assessment & Plan (10/12/2022 12:20 PM CONCRETE PAVING SUPERVISOR): Episode of atrial flutter overnight with RVR up to 140s. Patient asymptomatic, normotensive. IV metoprolol X2 given to achieve rate control. [id number] vasc score of 3. TTE from 09/03 without valvular abnormalities. No new episodes today. Lytes within normal limits. - Continue potline monitor - Continue home dose of metoprolol 25mg BID - Given that patient might be listed for transplant, hepatology would prefer to avoid apixaban. Lovenox is not ideal given her platelet count less than 100. Her INR is too high to consider warfarin. Anemia 10/05/2022 Assessment & Plan (07/09/2025 6:54 AM CONCRETE PAVING SUPERVISOR): Secondary to end stage liver disease, CKD, and acute illness. - CTM, transfuse PRN Assessment & Plan (07/08/2025 7:08 AM CONCRETE PAVING SUPERVISOR): Secondary to end stage liver disease, CKD, and acute illness. - CTM, transfuse PRN Assessment & Plan (07/07/2025 9:19 AM CONCRETE PAVING SUPERVISOR): Secondary to end stage liver disease, CKD, and acute illness. - CTM, transfuse PRN Assessment & Plan (07/06/2025 10:53 AM CONCRETE PAVING SUPERVISOR): Secondary to end stage liver disease, CKD, and acute illness. - CTM, transfuse PRN Assessment & Plan (07/05/2025 11:27 PM CONCRETE PAVING SUPERVISOR): Secondary to end stage liver disease, CKD, and acute illness. - CTM, transfuse PRN Assessment & Plan (10/11/2022 12:28 PM CONCRETE PAVING SUPERVISOR): - Hgb has down trended from 8 at OSH. A few months ago, hgb was 10-11. Patient denies melena or hematochezia.Last EGD 2020 with gastropathy, but no esopageal varices. No ascites on exam. - She required 1 unit of PRBCs on admit for hgb 6.5 (10/05). - Continue PO PPI daily - Stopped octreotide gtt on 10/08 - Daily CBC, transfuse if Hgb <7. Monitor closely. - EGD 10/10: portal hypertensive gastropathy, no bleeding. - Hgb stable between 7.5-8 Hypertension 10/05/2022 Assessment & Plan (05/28/2025 2:23 PM CDT): Suboptimal control complicated by history of decompensated cirrhosis. - Continue management per Nephrology: spironolactone 100mg daily Assessment & Plan (02/23/2025 2:41 PM CDT): Suboptimal control complicated by history of decompensated cirrhosis. 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 Initially admitted for possible HE, now returned to baseline. Had been planned for transplant 06/30, but case aborted due to poor liver donor quality. - continue rifaximin and lactulose tid - transition back to Bumex PO 2 mg BID, spironolactone 200 mg daily -- having good urine output - continue PPI daily post cardioversion - daily MELD labs - hepatology following, active listing on transplant list. Does not need to remain inpatient while waiting on transplant if all else is stable. 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 Initially admitted for possible HE, now returned to baseline. Had been planned for transplant 06/30, but case aborted due to poor liver donor quality. - continue rifaximin and lactulose tid - transition back to Bumex PO 2 mg BID, spironolactone 200 mg daily -- having good urine output - continue PPI daily post cardioversion - daily MELD labs - hepatology following, active listing on transplant list. Does not need to remain inpatient while waiting on transplant if all else is stable. 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 Initially admitted for possible HE, now returned to baseline. Had been planned for transplant 06/30, but case aborted due to poor liver donor quality. - continue rifaximin and lactulose tid - transition back to Bumex PO 2 mg BID, spironolactone 200 mg daily--having good urine output - continue PPI daily post cardioversion - daily MELD labs - hepatology following, active listing on transplant list. Does not need to remain inpatient while waiting on transplant if all else is stable. 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 Initially admitted for possible HE, now returned to baseline. Had been planned for transplant 06/30, but case aborted due to poor liver donor quality. 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 Initially admitted for possible HE, now returned to baseline. Had been planned for transplant 06/30, but case aborted due to poor liver donor quality. - continue rifaximin and lactulose - transition back to Bumex PO 2 mg BID, spironolactone 200 mg daily - continue PPI daily post cardioversion - daily MELD labs - hepatology following Assessment & Plan (06/30/2025 3:49 PM CONCRETE PAVING SUPERVISOR): DDx includes hepatic encephalopathy ISO TR (elevated Cr, vulnerability to TR ISO cirrhosis) vs. Infectious process (possibly infectious UA, risk of SBP). UA (contaminated) showed WBCs, LE, UCx pending; BCx pending, RPP negative, CXR unremarkable. Initiated empiric SBP Tx with CTX. No clinical signs of bleeding so low concern for varices at this time. Given no Hx of SBP and no signs of systemic infection, lower concern for SBP. - Contact to verify baseline - C/s hepatology, recs appreciated - Continue 500 mg BID rifaximin and lactulose (CTM for 3-5 BM every day) - Diagnostic paracentesis considered - Patient scheduled for liver/kidney transplant this afternoon and transfer to ICU - Appreciate recs from transplant Assessment & Plan (06/30/2025 12:54 PM CONCRETE PAVING SUPERVISOR): Aleah Levine is a 64 y.o. female with a history of liver cirrhosis secondary to LYONS, ERNESTINE, HTN, DM II, CKD, aflutter, who presented to the ED due to worsening weakness, mental fogginess, and headache. Patient A&Ox3 with confusion improved from initial presentation after initiation of albumin and ceftriaxone. Highest suspicion currently for hepatic encephalopathy in the setting of infection vs TR. UA with +WBC/+leuk esterase pending Ucx, pending Bcx, RPP neg, CXR clear without consolidation, on empiric SBP tx with ceftriaxone. Cr 2.21 -> 2.58 on admission (baseline 1.5-1.6). Hepatology is following. - Patient scheduled for liver/kidney transplant this afternoon and transfer to ICU - Appreciate recs from transplant - Gain collateral information from family to better assess baseline - Hepatology following - appreciate recs - Continue home rifaximin 550mg BID and lactulose for 3-5 BM daily - empiric SBP tx with ceftriaxone - pending infectious work-up with BCx 06/28, Urine cx 06/29, CXR normal - albumin challenge with 25g 25% albumin q6h - Consider diagnostic paracentesis Assessment & Plan (06/29/2025 11:32 PM CONCRETE PAVING SUPERVISOR): - See cirrhosis Assessment & Plan (06/29/2025 8:08 PM CONCRETE PAVING SUPERVISOR): Aleah Levine is a 64 y.o. female with a history of liver cirrhosis secondary to LYONS, ERNESTINE, HTN, DM II, CKD, aflutter, who presented to the ED due to worsening weakness, mental fogginess, and headache. Patient A&Ox3 with confusion improved from initial presentation after initiation of albumin and ceftriaxone. Highest suspicion currently for hepatic encephalopathy in the setting of infection vs TR. UA with +WBC/+leuk esterase pending Ucx, pending Bcx, RPP neg, CXR clear without consolidation, on empiric SBP tx with ceftriaxone. Cr 2.21 -> 2.58 (baseline 1.5-1.6). Hepatology is following. - Gain collateral information from family to better assess baseline - Hepatology following - appreciate recs - Continue home rifaximin 550mg BID and lactulose for 3-5 BM daily - empiric SBP tx with ceftriaxone - pending infectious work-up with BCx 06/28, Urine cx 06/29, CXR normal - albumin challenge with 25g 25% albumin q6h - Consider diagnostic paracentesis Assessment & Plan (06/16/2025 11:20 AM CONCRETE PAVING SUPERVISOR): Mental status clear today. Continue lactulose and titrate to 3-5 bowel movements daily. Assessment & Plan (03/06/2023 5:49 PM CDT): Good control on current medical management. No changes indicated. Assessment & Plan (08/03/2022 1:05 PM CONCRETE PAVING SUPERVISOR): Pt with hx of LYONS cirrhosis presenting with progressively worsening mental status over past several weeks. On initial examination patient was AAOx1, on subsequent exam she is now AAOx2 with appropriate responses. NH3 75. Unfortunately no safe area for bedside diagnostic paracentesis. Slurred speech and concerns for swallowing. TELLER HEAD completed swallow study and normal. Head CT: No acute intracranial abnormality. -Awaiting Liver MRI -Increased Lactulose to 4x daily (only 1 stool on 08/02) - Rifaximin and Lactulose (goal 3-5 bowel movements) - Fall precautions. - PT/OT: Home with assistance. Assessment & Plan (08/02/2022 2:34 PM CONCRETE PAVING SUPERVISOR): Pt with hx of LYONS cirrhosis presenting with progressively worsening mental status over past several weeks. On initial examination patient was AAOx1, on subsequent exam she is now AAOx2 with appropriate responses. NH3 75. Unfortunately no safe area for bedside diagnostic paracentesis. Slurred speech and concerns for swallowing. TELLER HEAD completed swallow study and normal. Head CT: No acute intracranial abnormality. - Rifaximin and Lactulose (goal 3-5 bowel movements) - Fall precautions. - PT/OT: Home with assistance. - TELLER HEAD completed bedside swallow and Normal Assessment & Plan (08/01/2022 3:28 PM CONCRETE PAVING SUPERVISOR): Pt with hx of LYONS cirrhosis [...] concerns for swallowing. - Fall precautions. - TELLER HEAD/PT/OT Consults. Assessment & Plan (08/01/2022 4:16 AM CONCRETE PAVING SUPERVISOR): Pt with hx of LYONS cirrhosis [...] Type 2 diabetes mellitus Assessment & Plan (07/09/2025 1:29 PM CONCRETE PAVING SUPERVISOR): Home regimen is insulin glargine 44 units QHS and Humalog 8 units TIDAC. - continue dose-reduced Tresiba 30 units QHS + SSI, somewhat above goal glycemic control - Return to prior insulin regimen at discharge Assessment & Plan (07/08/2025 7:08 AM CONCRETE PAVING SUPERVISOR): Home regimen is insulin glargine 44 units QHS and Humalog 8 units TIDAC. - continue dose-reduced Tresiba 30 units QHS + SSI Assessment & Plan (07/07/2025 9:19 AM CONCRETE PAVING SUPERVISOR): Home regimen is insulin glargine 44 units QHS and Humalog 8 units TIDAC. - continue dose-reduced Tresiba 30 units QHS + SSI Assessment & Plan (07/06/2025 10:53 AM CONCRETE PAVING SUPERVISOR): Home regimen is insulin glargine 44 units QHS and Humalog 8 units TIDAC. - continue dose-reduced Tresiba 30 units QHS + SSI Assessment & Plan (07/05/2025 11:27 PM CONCRETE PAVING SUPERVISOR): Home regimen is insulin glargine 44 units QHS and Humalog 8 units TIDAC. - continue dose-reduced Tresiba 30 units QHS + SSI Assessment & Plan (06/30/2025 3:49 PM CONCRETE PAVING SUPERVISOR): Regimen at home includes insulin glargine 44 units nightly, lispro 8 units with meals TID + SS up to 40u daily. - Tresiba 26 units nightly - lispro SS TID AC Assessment & Plan (06/30/2025 9:29 AM CONCRETE PAVING SUPERVISOR): Regimen at home includes insulin glargine 44 units nightly, lispro 8 units with meals TID + SS up to 40u daily. - Tresiba 26 units nightly - lispro SS TID AC Assessment & Plan (06/29/2025 8:08 PM CONCRETE PAVING SUPERVISOR): Regimen at home includes insulin glargine 44 units nightly, lispro 8 units with meals TID + SS up to 40u daily. - Tresiba 26 units nightly - lispro SS TID AC Assessment & Plan (05/28/2025 2:20 PM CDT): Patient with historically suboptimally controlled diabetes and somewhat unreliable HbA1c iso anemia. Last HbA1c this visit 5.9% though GMI on CGM 8.3% with postprandial hyperglycemia worsening throughout the day. Will uptitrate GLP1/GIP RA to improve control. - Increase Mounjaro to 7.5mg weekly; counseled patient to reach out if issues tolerating this dose - Continue insulin: insulin glargine 44 units qhs, insulin lispro 8 units TIDAC - Avoid SGLT2i given history of frequent hypokalemia with dehydration-induced hepatic encephalopathy - Hold atorvastatin, ACEi/ARB given cirrhosis with history of recurrent decompensation - Last HbA1c 5.9% 05/2025 (this visit), recheck next appointment - Last UACR <20 02/2021; patient has known CKD and follows with Nephrology - Last lipid panel 04/2024, LDL 47; recheck with next labs - Diabetic foot exam completed 02/2025 with intact sensation to monofilament throughout; provided education about foot care. Repeat annually. Follows with podiatry. - Diabetic eye exam completed Summer 2024, reportedly without retinopathy; repeat annually - Continue to encourage healthy eating and exercise as able (e.g. working with PT) - Met with CDE this visit Assessment & Plan (02/23/2025 2:38 PM CDT): [...] and exercise - Plan for meeting with in service educator, dietitian next visit Assessment & Plan (10/12/2022 2:58 PM CONCRETE PAVING SUPERVISOR): Previously on dose reduced insulin regimen at OSH 20u lantus, 7u tid lispro + ssi. - Her blood sugars were initially on the lower side (90-100) in setting of poor po intake and TR. Continue SSI only for now and will uptitrate as needed. - Continue Lantus 10u/daily + lispro 4TID Assessment & Plan (08/03/2022 1:09 PM CONCRETE PAVING SUPERVISOR): Home regimen of toujeo 42 units + SSI. -Lantus, Lispro TID AC and SSI -No Juice Diet -Consistent Carb+ 2gm NA diet. -CTM BGL Assessment & Plan (08/02/2022 2:38 PM CONCRETE PAVING SUPERVISOR): Home regimen of toujeo 42 units + SSI. -Lantus, Lispro TID AC and SSI -No Juice Diet -Consistent Carb+ 2gm NA diet. -CTM BGL Assessment & Plan (08/01/2022 3:26 PM CONCRETE PAVING SUPERVISOR): Home regimen of toujeo 42 units + SSI. Given TR and decreased PO intake, insulin regimen reduced to Lantus 20units. - Continue on 2g Na + DM2 diet - CTM BGL Assessment & Plan (08/01/2022 4:17 AM CONCRETE PAVING SUPERVISOR): Home regimen of toujeo 42 units + SSI Given TR and decreased PO intake, will dose reduce insulin regimen, 20units + SSIand uptitrate as needed Continue on 2g Na + DM2 diet ERNESTINE (obstructive sleep apnea) Assessment & Plan (07/09/2025 6:54 AM CONCRETE PAVING SUPERVISOR): - continue nocturnal NPPV Assessment & Plan (07/08/2025 7:08 AM CONCRETE PAVING SUPERVISOR): - continue nocturnal NPPV Assessment & Plan (07/07/2025 9:19 AM CONCRETE PAVING SUPERVISOR): - continue nocturnal NPPV Assessment & Plan (07/06/2025 10:53 AM CONCRETE PAVING SUPERVISOR): - continue nocturnal NPPV Assessment & Plan (07/05/2025 11:27 PM CONCRETE PAVING SUPERVISOR): - continue nocturnal NPPV Resolved Problems Problem Noted Date Diagnosed Date Resolved Date Screening for colorectal cancer 10/06/2024 11/25/2024 Hypoxic ischemic encephalopa thy of , unspecified stage 09/24/2024 10/08/2024 Esophageal varices without bleeding 07/17/2024 11/25/2024 Lymphedema 01/16/2023 07/15/2024 Other ascites 10/22/2022 07/15/2024 Overview (10/22/2022): Added automatically from request for surgery [id number] Volume overload 10/06/2022 05/29/2024 Assessment & Plan (10/10/2022 1:09 PM CONCRETE PAVING SUPERVISOR): In the setting of LYONS cirrhosis. [...] (08/22/2022): Added automatically from request for surgery [id number] Portal vein thrombosis 08/01/202208/22 Assessment & Plan (08/03/2022 1:09 PM CONCRETE PAVING SUPERVISOR): -Apixaban 2.5mg BID Assessment & Plan (08/02/2022 2:39 PM CONCRETE PAVING SUPERVISOR): -Apixaban 2.5mg BID Assessment & Plan (08/01/2022 3:27 PM CONCRETE PAVING SUPERVISOR): -Apixaban 2.5mg BID Assessment & Plan (08/01/2022 4:17 AM CONCRETE PAVING SUPERVISOR): Continue home apixaban LYONS (nonalcoholic steatohepatitis) 11/02/2021 07/15/2024 Abnormal mammogram of right breast 11/02/2020 08/22/2022 Preop cardiovascular exam 09/23/2019 Overview (09/23/2019): Added automatically from request for surgery [id number] Colon cancer screening 04/21/201908/22 Overview (04/21/2019): Added automatically from request for surgery [id number] Esophageal varices without bleeding (CMS/HCC) 04/21/20 19 08/22/2022 Overview (04/21/2019): Added automatically from request for surgery [id number] Mass of lower lobe of right lung 03/14/2018 02/24/2025 Cancer Staging:Clinical:Stage Unknown(cT1a, cNX) - Unsigned Steatosis of liver 05/20/2017 snf current use of ant icoagulant therapy 07/26/2016 08/22/2022 Neutropenia 07/14/2015 07/15/2024 Portal vein thrombosis 07/14/201508/22 BMI 45.0-49.9, adult 11/18/201405/29/ 024 Abnormal magnetic resonance imaging study 05/20/2014 08/22/2022 Biliary colic 05/10/2014 08/22/2022 Lesion of liver 04/30/2014 08/22/2022 Decreased granulocyte count 01/14/2014 07/15/2024 Lymphopenia 03/17/2013 07/15/2024 Lichen planus 06/03/2012 02/24/2025 Rash 03/25/2012 08/22/2022 Additional Health Concerns Active Problems Noted Date Diagnosed Date Initial Follow-Up Appointment 07/12/2025 Note: Pt hospitalized for LYONS cirrhosis and on the liver/kidney transplant list. She was the primary recipient but the donor liver quality wasn't adequate and transplant canceled. Hx DM2, HTN, A.Fib, and ERNESTINE. Epic risk 20 Barriers to Medication Adherence 07/12/2025 Goals Goal Patient Goal Type Associated Problems Recent Progress Patient-Stated? Author Patient will have kept initial appointment and will show signs of improvement to baseline Care Plan Initial Follow-Up Appointment Marina Madera, TYRA Note: Pt will get INR drawn today at PCP office and has PCP appointment on 07/15. Her drives to appointments. Patient will have access to medications needed for healthy outcomes Care Plan Barriers to Medication Adherence Marina Madera RN Interventions Care Plan Interventions Intervention Entry Date Outcome Ensure a post-hospital medication reconciliation is completed and review with patient-caregiver the medication schedule in detail 07/12/2025 Contact prescriber to request an alternative medication/prescription assistance plan if pt cannot afford medication, is not covered by insurance, or patient did not receive prescription 07/12/2025 Ensure that prescriptions are transferred to pt s home pharmacy as needed 07/12/2025 Transfer prescriptions to pharmacy that delivers to patient s home as needed 07/12/2025 Review when to call their physician for potential medication refills or complications 07/12/2025 Coordinate with CRISTINA pharmacist to assist with identified concerns or educational needs 07/12/2025 Voucher medication as needed 07/12/2025 Related Goals and Interventions Goal Associated Intervent ions Patient will have access to medications needed for healthy outcomes Ensure a post-hospital medication reconciliation is completed and review with patient-caregiver the medication schedule in detail; Contact prescriber to request an alternative medication/prescription assistance plan if pt cannot afford medication, is not covered by insurance, or patient did not receive prescription; Ensure that prescriptions are transferred to pt s home pharmacy as needed; Transfer prescriptions to pharmacy that delivers to patient s home as needed; Review when to call their physician for potential medication refills or complications; Coordinate with CRISTINA pharmacist to assist with identified concerns or educational needs; Voucher medication as needed
--- OUTSIDE RECORDS SUMMARY | 2025-07-26 17:22 | XMS_ITS | Clinical Summary ---
Author Organization [facility] Address [address] [place] [address] Phone Care Team Providers Care Tool Radial Drill Press Set Up Operator Name Role Phone Unavailable Primary Care Provider Unavailabl e Allergies No known active allergies Medications acetaminophen (TYLENOL) 325 mg tablet Take 325 mg by mouth every 8 hours. Active glucagon (BAQSIMI) 3 mg/spray [place], Non-Aerosol 1 [place]. GIVE 1 spray in one NOSTRIL ONE [...] hypertension 04/02/2024 UTI (urinary tract infection) 04/02/2024 Social History Tobacco Use Types Packs/Day Years [...] VACCINE (60+ or ) (1 - Risk 50-74 years 1-dose series) 2010 BREAST CANCER SCREENING 12/06/2022 12/06/2021, 05/15 DTAP/TDAP/TD VACCINES (2 - T d or Tdap) 03/24/2024 03/24/2014 DIABETES HBA1C Q 6 MONTHS 10/03/20242023, 02/14/2024, 09/27/2023 INFLUENZA VACCINE (#1) 2025 , 04/29/2020, 05/01/2019, Additional history exists FIT/FOBT Q 1 year 04/03/2025 04/03/2024 LDL CHOLESTEROL ANNUAL 04/03/2025 04/03/2024, 2023 COVID-19 Vaccine (2 - 2024-2 6 season) 2025 10/17/2020 COLORECTAL SCREENING 05/30/2032 05/30/2022, 05/30/2022, 10/26/2019 Colorectal [...] STOOL Negative Negative 04/03/2024 3:27 AM CDT [facility] Stool STOOL SPECIMEN / Unknown Collection / Unknown 04/03/2024 1:23 AM CDT 04/03/2024 1:24 AM CDT Marcos Newton MD BODY FLUIDS AND STOOLS Final R esult [facility] CLIA# [id number] [place] [address] * LIPID PANEL (04/03/2024 12:30 AM CDT) CHOLESTEROL 114 <200 mg/dL 04/03/2024 1:34 AM CDT [facility] TRIGLYCERIDE 62 <150 mg/dL 04/03/2024 1:34 AM CDT [facility] HDL 50 40 - 59 mg/dL 04/03/2024 1:34 AM CDT [facility] LDL CALCULATED 52 <100 mg/dL 04/03/2024 1:34 AM CDT [facility] NON-HDL CHOLESTEROL 64 <130 mg/dL 04/03/2024 1:34 AM CDT [facility] Blood Venipuncture / Unknown 04/03/2024 12:30 AM CDT 04/03/2024 1:04 AM CDT [facility] - 04/03/2024 1:34 AM CDT TOTAL CHOLESTEROL [...] ORDERABLES Final Res ult Performing Organization Address City/[facility]/ZIP Co de Phone Number [facility] CLIA# [id number] [place] [address] * (ABNORMAL) HEMOGLOBIN A1C (04/02/2024 6:29 PM CDT) HEMOGLOBIN A1C 6.5(H) <=5.6 % 04/02/2024 7:01 PM CDT [facility] EST. AVG GLUCOSE, A1C 140 mg/dL 04/02/2024 7:01 PM CDT [facility] Blood Venipuncture / Unknown 04/02/2024 6:29 PM CDT 04/02/2024 6:34 PM CDT [facility] - 04/02/2024 7:01 PM CDT HGB A1C INTERPRETATION NORMAL: <5.7% PRE-DIABETES: 5.7 - 6.4% DIABETES: 6.5% OR GREATER us Marcos Newton MD CHEMISTRY ORDERABLES Final Res ult [facility]# [id number] [place] [address] from Last 3 Months or Most Recently Relevant to Health Maintenance Insurance [facility] [id number] RX [employer] RX Member Subscriber Plan / Payer (Ef fective 2024-Present) Name:Aleah Levine Relation to Subscriber:Self Name:Aleah Levine Payer ID:Not on file Group ID:[id number] Type:RX Medicare Part D Address: [address] Advance Directives For more information, please contact: [phone] * Full Code (Latest Code Status on File) Date Activated Date Inactivated Comments 04/02/2024 6:16 PM 04/06/2024 2:11 PM
--- OUTSIDE RECORDS SUMMARY | 2025-07-26 17:22 | XMS_ITS ---
Author Organization [facility] Address [address] [place] [address] Care Team Providers Care Drum Straightener Name Role Phone Maddy Romano MD Primary Care Provider [phone] Manas Ibarra MD Unavailable Zion Barton MD Unavailable Molina Charles MD Unavailable [phone] Karuna Maria OT Unavailable Unavaila Renu Paul NP Unavailable [phone] Eladio Mcrae MD Unavailable [phone] Marcy Schroeder RN Unavailable [phone] Chelsea Barker RN Unavailable Unavail able Marina Le RN Unavailable [phone] Transplant Episode Liver Candidate [facility] ([place], [place]) - [facility] Center waitlisted on 08/17/2022 Marked as Active on 07/01/2025 Reason: Listed in [facility]ET Liver CoordinatorChelsea Barker RN Phone: N/A Fax: N/A Email: N/A Scores Score Value Updated Expires Exceptions/Xioamra sons CPRA Not available UNOS MELD 24 07/09/2025 08/08/2025 MELD (Calc) 24 07/09/2025 Agdaagux Organ Diagnosis Organ Primary Contributory Liver Cirrhosis: Metabolic Dysfunction -Associated Steatohepatitis ([facility]) Care Team Name Role Phone Fax Email Chelsea Barker, TYRA Liver Coordinator N/A N/A N/A Charito Lambert, DEVONTE Dietitian N/A N/A N/A Anna Ngo, ROLL CARRIER Civil Engineer Land Development N/A N/A N/A Molina Charles MD Referring Physician [phone] N/A Cynthia Robert RN Secondary Coordinator [phone] N/A N/A Celsa Vargas Primary Sweatband Shaper N/A N/A N/A [place] Bear Bleach Maker [phone] N/A N/A Events Pre-Transplant Referred: 10/26/2021 Evaluation began: 11/02/2021 Committee: 08/07/2022 Center waitlisted: 08/17/2022
--- OUTSIDE RECORDS SUMMARY | 2025-07-26 17:22 | XMS_ITS | Encounter Summary ---
Author Organization [facility] Address [address] [place] [address] Care Team Providers Care Rate And Cost Analyst Name Role Phone Unavailable Primary Care Provider Unavailabl e Reason for Visit * Reason Onset Date Comments TR on CKD 04/02/2024 Spoke w/Dr. Mueller Stroke/CVA 04/02/2024 Spoke w/Gladys @ Dr. Anthony's exchange Encounter Details Date Type Department Care Team (Late st Contact Info) Description 04/02/2024 Telephone [facility] Emergency [address] [place] [address] Marcos Newton MD [address] [place] [address] TR on CKD (Spoke w/Dr. Mueller); [...]
--- OUTSIDE RECORDS SUMMARY | 2025-07-26 17:22 | XMS_ITS | Encounter Summary ---
Author Organization [facility] Address [address] [place] [address] Phone Care Team Providers Care Gore Inserter Name Role Phone Maddy Romano MD Primary Care Provider [phone] Astrid Haq SECURITY ORDERLY Unavailable [phone] Manas Ibarra MD Unavailable Zion Barton MD Unavailable Molina Charles MD Unavailable [phone] Inés Lemus RN Unavailable [phone] Karuna Maria OT Unavailable Unavaila Renu Paul NP Unavailable [phone] Eladio Mcrae MD Unavailable [phone] Marcy Schroeder RN Unavailable [phone] Briana Poe RN Unavailable [phone] Marina Le RN Unavailable [phone] Chelsea Barker RN Unavailable Unavail able Marina Le RN Unavailable [phone] Encounter Details Date Type Department Care Team (Latest Contact Info) Description 08/18/2020 Orders Only [facility] Scanning, Provider Social History Tobacco Use Types Packs/Day Years Used Date Smoking Tobacco: Former Cigarettes Q uit: 2010 Smokeless Tobacco: Never Comments No Sex and Gender Information Value Date Recorded Sex Assigned at Not on file Legal Sex Female 8:22 AM SUPERVISOR PULLET FARM Gender Identity Female 11/15/2021 2:30 AM CDT [...] encounter Results * SCAN - LABS (08/18/2020) Provider Scanning Final Result documented in this [...] COVID: Suspected 09/24/2024 09/24/2024 09/24/2024 3:13 PM SUPERVISOR PULLET FARM COVID: Suspected 06/28/2025 06/28/2025 06/29/2025 12:02 AM SUPERVISOR PULLET FARM Ring Surveillance: C. auris Comment:[id number] 07/01/2025 07/01/2025 07/06/2025 9:[address] documented as of this encounter Care Teams Gore Inserter Relationship Specialty Start Date End Date Maddy Romano MD [address] [place] [address] PCP - General 09/28/16 Astrid Haq, NAGI [address] [place], [place] [address] Nurse Practitioner Radiation Oncology 11/05/18 11/07/22 Manas Ibarra MD [address] [place], [place] [address] Referring Physician Thoracic Surgery 11/05/18 Zion Barton MD [address] [place], [place] [address] Radiation Oncologist Radiation Oncology 05/05/19 Molina Charles MD [facility] [address] [place], [place] [address] Referring Physician Transplant Hepatology 12/15/20 Inés Lemus, TYRA [address] [place], [place] [id number] Cosmetics Presser 10/31/21 5 Karuna Maria, OT Occupational Therapist Occupational Therapy 09/20/22 Renu Treviño, NAGI [address] [facility] [address] [place], [place] [address] Nurse Practitioner Radiation Oncology 11/08/22 Eladio Mcrae MD [address] [place] [address] Referring Physician Obstetrics and Gynecology 11/15/22 Marcy Schroeder, RN [address] [place] [address] Cosmetics Presser 04/27/24 Briana Poe RN [address] [address] [facility] Outpatient Nail Specialist 04/30/24 05/28/24 Marina Le, RN [address] [address] [facility] Outpatient Nail Specialist 10/05/24 10/26/24 Chelsea Barker, ip litigation paralegalCosmetics Presser 11/13/24 Marina Le, RN [address] [address] [facility] Outpatient Nail Specialist 07/12/25 documented as of this encounter
--- OUTSIDE RECORDS SUMMARY | 2025-07-26 17:22 | XMS_ITS | Encounter Summary ---
Author Organization [facility] [employer] [facility] Address [address] [place] [address] Phone Care Team Providers Care Supervisor Offset Plate Preparation Name Role Phone Maddy Romano MD Primary Care Provider [phone] Astrid Haq EVENT LIGHTING SPECIALIST Unavailable Manas Ibarra MD Unavailable Zion Barton MD Unavailable Molina Charles MD Unavailable [phone] Inés Lemus RN Unavailable [phone] Karuna Maria OT Unavailable Unavaila Renu Paul NP Unavailable [phone] Eladio Mcrae MD Unavailable [phone] Marcy Schroeder RN Unavailable [phone] Briana Poe RN Unavailable [phone] Marina Le RN Unavailable Chelsea Barker RN Unavailable Unavail able Marina Le RN Unavailable [phone] Encounter Details Date Type Department Care Team (Late st Contact Info) Description 04/13/2020 Orders Only [facility] Scanning, Provider Social History Tobacco Use Types Packs/Day Years Used Date Smoking Tobacco: Former Cigarettes Q uit: 2010 Smokeless Tobacco: Never Comments No Sex and Gender Information Value Date Recorded Sex Assigned at Not on file Legal Sex Female 8:22 AM SHIPPER AND RECEIVING Gender Identity Female 11/15/2021 2:30 AM CDT [...] encounter Results * SCAN - LABS (04/13/2020) Provider Scanning Final Result documented in this [...] COVID: Suspected 09/24/2024 09/24/2024 09/24/2024 3:13 PM SHIPPER AND RECEIVING COVID: Suspected 06/28/2025 06/28/2025 06/29/2025 12:02 AM SHIPPER AND RECEIVING Ring Surveillance: C. auris Comment:4400 07/01/2025 07/01/2025 07/06/2025 9:[address] documented as of this encounter Care Teams Supervisor Offset Plate Preparation Relationship Specialty Start Date End Date Maddy Romano MD [address] [place] [address] PCP - General 09/28/16 Astrid Haq NP [address] [place], [place] [address] Nurse Practitioner Radiation Oncology 11/05/18 11/07/22 Manas Ibarra MD [address] [place], [place] [address] Referring Physician Thoracic Surgery 11/05/18 Zion Barton MD [address] [place], [place] [address] Radiation Oncologist Radiation Oncology 05/05/19 Molina Charles MD [address] [facility] [address] [place], [place] [address] Referring Physician Transplant Hepatology 12/15/20 Inés Lemus, TYRA [address] [place] [address] Transformer Stock Clerk 10/31/21 5 Karuna Maria, OT Occupational Therapist Occupational Therapy 09/20/22 Renu Treviño NP [address] [facility] [address] [place] [address] Nurse Practitioner Radiation Oncology 11/08/22 Eladio Mcrae MD [address] [place] [address] Referring Physician Obstetrics and Gynecology 11/15/22 Marcy Schroeder, RN [address] [place] [address] Transformer Stock Clerk 04/27/24 Briana Poe RN [address] [address] [facility] Outpatient Typewriter Operator Automatic 04/30/24 05/28/24 Marina Le, RN [address] [address] [facility] Outpatient Typewriter Operator Automatic 10/05/24 10/26/24 Chelsea Barker, petroleum refining firerTransformer Stock Clerk 11/13/24 Marina Le, RN [address] [address] [facility] Outpatient Typewriter Operator Automatic 07/12/25 documented as of this encounter
--- OUTSIDE RECORDS SUMMARY | 2025-07-26 17:22 | XMS_ITS | Encounter Summary ---
Author Organization [facility] [employer] [facility] Address [address] [place] [address] Phone Care Team Providers Care Polymerization Oven Operator Name Role Phone Maddy Romano MD Primary Care Provider [phone] Astrid Haq GUARD IMMIGRATION Unavailable Manas Ibarra MD Unavailable Zion Barton MD Unavailable Molina Charles MD Unavailable [phone] Inés Lemus RN Unavailable [phone] Karuna Maria OT Unavailable Unavaila Renu Paul NP Unavailable [phone] Eladio Mcrae MD Unavailable [phone] Marcy Schroeder RN Unavailable [phone] Briana Poe RN Unavailable [phone] Marina Le RN Unavailable Chelsea Barker RN [...] file Legal Sex Female 8:22 AM OIL FIELD TESTER Gender Identity Female 11/15/2021 2:30 AM CDT [...] encounter Results * SCAN - LABS (08/11/2021) Provider Scanning Final Result documented in this [...] COVID: Suspected 09/24/2024 09/24/2024 09/24/2024 3:13 PM OIL FIELD TESTER COVID: Suspected 06/28/2025 06/28/2025 06/29/2025 12:02 AM OIL FIELD TESTER Ring Surveillance: C. auris Comment:[id number] 07/01/2025 07/01/2025 07/06/2025 9:[address] documented as of this encounter Care Teams Polymerization Oven Operator Relationship Specialty Start Date End Date Maddy Romano MD [address] [place] [address] PCP - General 09/28/16 Astrid Haq NP [address] [place] [address] Nurse Practitioner Radiation Oncology 11/05/18 11/07/22 Manas Ibarra MD [address] [place] [address] Referring Physician Thoracic Surgery 11/05/18 Zion Barton MD [address] [place] [address] Radiation Oncologist Radiation Oncology 05/05/19 Molina Charles MD [address] [facility] [address] [place] [address] Referring Physician Transplant Hepatology 12/15/20 Inés Lemus RN [address] [facility] [address] [place] [address] Biogeographer 10/31/21 5 Karuna Maria, OT Occupational Therapist Occupational Therapy 09/20/22 Renu Treviño NP [address] [facility] [address] [place] [address] Nurse Practitioner Radiation Oncology 11/08/22 Eladio Mcrae MD [address] [place] [address] Referring Physician Obstetrics and Gynecology 11/15/22 Marcy Schroeder RN [address] [place] [address] Biogeographer 04/27/24 Briana Poe RN [address] [address] [facility] Outpatient Workers Compensation Legal Secretary 04/30/24 05/28/24 Marina Le RN [address] [address] [facility] Outpatient Workers Compensation Legal Secretary 10/05/24 10/26/24 Chelsea Barker, section weaverBiogeographer 11/13/24 Marina Le, RN [address] [id number] [facility] Outpatient Workers Compensation Legal Secretary 07/12/25 documented as of this encounter
--- OUTSIDE RECORDS SUMMARY | 2025-07-26 17:22 | XMS_ITS | Clinical Summary ---
Author Organization [facility] al Address [address] [place] [address] Care Team Providers Care Pile Operator Name Role Phone Maddy Romano MD Primary Care Provider + [phone] Manas Ibarra MD Unavailable Zion Barton MD Unavailable [phone] Molina Charles MD Unavailable [phone] Karuna Maria OT Unavailable Unavaila Renu Paul NP Unavailable [phone] Eladio Mcrae MD Unavailable [phone] Marcy Scrhoeder RN Unavailable [phone] Chelsea Barker RN Unavailable Unavail able Marina Le RN Unavailable [phone] Allergies Active Allergy Reactions Criticality Noted Date Comments Moxifloxacin Itching Low 10/15/2019 Sulfa (Sulfonamide Antibiotics) Hives Medium Medications thiamine (VITAMIN B-1) 100 mg tablet Take 1 tablet (100 mg total) by mouth daily 06/22/[address] (PROTONIX) 40 mg EC tablet Take 1 tablet (40 mg total) by mouth daily 30 tablet 11 07/23/20 24 Active pen needle, diabetic (BD Ultra-Fine Mini Pen Needle) 31 gauge x 16 needleIndications: Type 2 diabetes mellitus without complication, unspecified whether terminal gauger insulin use USE TO INJECT INSULIN SIX TIMES PER DAY 200 each 09/23/19 25 Active glucagon 1 mg kit Inject 1 mg into the muscle once as directed by provider for low blood sugar. 1 kit 10/02/19 25 Active Xifaxan 550 mg tabletIndications: Hepatic encephalopathy (HCC),Cirrhosis of liver without ascites, unspecified hepatic cirrhosis type (HCC) TAKE 1 TABLET(550 MG) BY MOUTH TWICE DAILY 60 tablet 12/23/19 25 Active insulin glargine (LANTUS) 100 unit/mL (3 mL) pen for injectionIndicatio ns:Type 2 diabetes mellitus with stage 3a chronic kidney disease, unspecified whether terminal gauger insulin use (HCC) Inject 44 Units under the skin nightly 45 mL 02/20/20 25 Active insulin lispro (HumaLOG, ADMELOG) 100 unit/mL pen for injectionIndicatio ns:Type 2 diabetes mellitus with stage 3a chronic kidney disease, unspecified whether terminal gauger insulin use (HCC) Inject 8 units with meals tid, plus sliding scale up to 40u daily 15 mL 02/20/20 25 026 Active blood-glucose sensor (Dexcom G6 Sensor) deviceIndications: Type 2 diabetes mellitus with stage 3a chronic kidney disease, unspecified whether jail insulin use (HCC) Will use 1 sensor every 10 days. 1 box = 3 sensors. 3 each 02/20/20 25 Active spironolactone (ALDACTONE) 100 mg tablet Take 2 tablets (200 mg total) by mouth daily 02/25/20 25 026 Active gabapentin (NEURONTIN) 100 mg capsule 05/03/20 25 Active ondansetron (ZOFRAN) 4 mg tablet Take 1 tablet (4 mg total) by mouth every 8 (eight) hours as needed for nausea or vomiting 90 tablet 3 05/12/20 25 026 Active tirzepatide (Mounjaro) 7.5 mg/0.5 mL pen injector injectionIndicatio ns:Type 2 diabetes mellitus with stage 3b chronic kidney disease, with long-term current use of insulin (HCC) Inject 0.5 mL (7.5 mg total) under the skin once a week 2 mL 11 05/28/20 25 026 Active blood-glucose transmitter (Dexcom G6 Transmitter) deviceIndications: Type 2 diabetes mellitus without complication, with long-term current use of insulin ([facility]) Will use 1 transmitter every 90 days 1 each 3 05/28/20 25 Active amitriptyline (ELAVIL) 25 mg tablet Take 1 tablet (25 mg total) by mouth nightly 30 tablet 1 06/17/20 25 026 Active warfarin (COUMADIN) 1 mg tabletIndications: atrial fibrillation Take 4 tablets (4 mg total) by mouth daily 120 tablet 07/09/20 Active lactulose solution 10 gram/15mL Take 30 mL (20 g total) by mouth 3 times a day 3785 mL 07/09/20 Active bumetanide (BUMEX) 2 mg tablet Take 1 tablet (2 mg total) by mouth 2 (two) times a day 60 tablet 07/09/20 25 025 Active lactulose solution 10 gram/15mLIndicatio ns:Portosystemic encephalopathy Take 30 mL (20 g total) by mouth 3 (three) times a day 3785 mL 3 11/26/19 25 025 Discontin ued(Stop Taking at Discharge ) metOLazone (ZAROXOLYN) 10 mg tablet Take 1 tablet (10 mg total) by mouth 2 (two) times a week 30 tablet 2 03/25/20 25 025 Discontin ued(Stop Taking at Discharge ) bumetanide (BUMEX) 1 mg tabletIndications: Stage 3b chronic kidney disease (HCC) Take 2 tablets (2 mg total) by mouth every morning AND 1 tablet (1 mg total) every afternoon 270 tablet 1 03/25/20 25 025 Discontin ued(Stop Taking at Discharge ) nystatin 100,000 unit/mL suspension TAKE 5 MILLILITERS (500,000 UNIT) BY ORAL ROUTE 4 TIMES PER DAY 05/06/20 25 025 Discontin ued(Stop Taking at Discharge ) cholestyramine (Prevalite) 4 gram powder Take by mouth 06/13/20 25 025 Discontin ued(Stop Taking at Discharge ) Active Problems Problem Noted Date Diagnosed Date Thrombocytopenia 07/05/2025 Assessment & Plan (07/09/2025 6:54 AM BISQUE GRADER): Secondary to end stage liver disease, CKD, and acute illness. - CTM, transfuse PRN Assessment & Plan (07/08/2025 7:08 AM BISQUE GRADER): Secondary to end stage liver disease, CKD, and acute illness. - CTM, transfuse PRN Assessment & Plan (07/07/2025 9:19 AM BISQUE GRADER): Secondary to end stage liver disease, CKD, and acute illness. - CTM, transfuse PRN Assessment & Plan (07/06/2025 10:53 AM BISQUE GRADER): Secondary to end stage liver disease, CKD, and acute illness. - CTM, transfuse PRN Assessment & Plan (07/05/2025 11:27 PM BISQUE GRADER): Secondary to end stage liver disease, CKD, and acute illness. 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 Assessment & Plan (07/08/2025 1:36 PM BISQUE GRADER): Baseline Cr around 1.3 - 1.7, presented [...] a.m. Assessment & Plan (07/07/2025 9:19 AM BISQUE GRADER): Baseline Cr around 1.3 - 1.7, presented [...] following Assessment & Plan (07/06/2025 10:53 AM BISQUE GRADER): Baseline Cr around 1.3 - 1.7, presented [...] following Assessment & Plan (07/05/2025 11:27 PM BISQUE GRADER): Baseline Cr around 1.3 - 1.7, presented [...] following Assessment & Plan (06/30/2025 9:29 AM BISQUE GRADER): Cr on presentation at 2.21 -> 2.58. [...] HRS Assessment & Plan (06/29/2025 11:32 PM BISQUE GRADER): Baseline Cr 1.6, Cr on presentation 2.58. DDx is pre-renal vs. HRS. Albumin challenge will refine DDx. - Receiving albumin challenge 25g 25% albumin q6h - Trend BMP q24 Assessment & Plan (06/29/2025 8:08 PM BISQUE GRADER): Cr on presentation at 2.21 -> 2.58. [...] 06/29/2025 Assessment & Plan (06/30/2025 3:49 PM BISQUE GRADER): EKGs since presentation have shown complete RBBB, aflutter and afib with RVR. Received metoprolol 5mg IV x3 in the ED. Currently aflutter. - Proceed with CTA to rule out L atrial appendage thrombus prior to surgery --> 06/30 found left atrial enlargement without thrombus in the left atrial appendage. Assessment & Plan (06/30/2025 1:10 PM BISQUE GRADER): EKGs since presentation have shown complete RBBB, sinus tachycardia, aflutter and afib with RVR. Received metoprolol 5mg IV x3 in the ED. Currently aflutter. - metoprolol 5mg IV - Proceed with CTA to rule out L atrial appendage thrombus prior to surgery Assessment & Plan (06/29/2025 8:08 PM BISQUE GRADER): EKGs since presentation have shown complete RBBB, sinus tachycardia, aflutter and afib with RVR. Received metoprolol 5mg IV x3 in the ED. Currently in sinus tachycardia. BP 92/55. Will hold off on further metoprolol for now. Atrial fibrillation and flutter 06/29/2025 Assessment & Plan (07/09/2025 1:29 PM BISQUE GRADER): Known history of atrial flutter not on [...] (will need AC clinic follow up at [place]). Nearly at goal and has close INR follow-up, so patient will be safe for discharge today. - Goal INR 2-3 --> await goal then anticipate PCP to follow-up INR Saturday with f/u visit also . - Not on heparin bridge due to thrombocytopenia, nor Lovenox due to renal function - Telemetry monitoring Assessment & Plan (07/08/2025 1:36 PM BISQUE GRADER): Known history of atrial flutter not on [...] (will need AC clinic follow up at [place]) - Goal INR 2-3 --> await goal then anticipate PCP to follow-up INR next week - Not on heparin bridge due to thrombocytopenia, nor Lovenox due to renal function - Telemetry monitoring Assessment & Plan (07/07/2025 9:19 AM BISQUE GRADER): Known history of atrial flutter not on [...] (will need AC clinic follow up at [place]) - not on heparin bridge due to thrombocytopenia, nor Lovenox due to renal function - telemetry monitoring Assessment & Plan (07/06/2025 10:53 AM BISQUE GRADER): Known history of atrial flutter not on [...] monitoring Assessment & Plan (07/05/2025 11:27 PM BISQUE GRADER): Known history of atrial flutter not on [...] monitoring Assessment & Plan (06/30/2025 3:49 PM BISQUE GRADER): EKGs since presentation have shown complete RBBB, aflutter and afib with RVR. Received metoprolol 5mg IV x3 in the ED. Currently aflutter. - Proceed with CTA to rule out L atrial appendage thrombus prior to surgery --> 06/30 found left atrial enlargement without thrombus in the left atrial appendage. Assessment & Plan (06/30/2025 1:10 PM BISQUE GRADER): EKGs since presentation have shown complete RBBB, sinus tachycardia, aflutter and afib with RVR. Received metoprolol 5mg IV x3 in the ED. Currently aflutter. - metoprolol 5mg IV - Proceed with CTA to rule out L atrial appendage thrombus prior to surgery Assessment & Plan (06/29/2025 8:08 PM BISQUE GRADER): EKGs since presentation have shown complete RBBB, sinus tachycardia, aflutter and afib with RVR. Received metoprolol 5mg IV x3 in the ED. Currently in sinus tachycardia. BP 92/55. Will hold off on further metoprolol for now. End-stage liver disease 06/29/2025 Assessment & Plan (06/30/2025 3:49 PM BISQUE GRADER): See Liver cirrhosis ESRD (end stage renal disease) 06/29/2025 Assessment & Plan (06/30/2025 3:49 PM BISQUE GRADER): See TR Tardive dyskinesia 06/16/2025 Assessment & Plan (06/30/2025 3:49 PM BISQUE GRADER): New onset of twisting facial and tongue movements over the past few weeks. No history of anti-dopaminergic agents. Patient reports improvement of symptoms since presentation. May be impacting slurred speech. - Consider neuro consult - Continue to monitor for improvement Assessment & Plan (06/30/2025 9:29 AM BISQUE GRADER): New onset of twisting facial and tongue movements over the past few weeks. No history of anti-dopaminergic agents. Patient reports improvement of symptoms since presentation. May be impacting slurred speech. - Consider neuro consult - Continue to monitor for improvement Assessment & Plan (06/29/2025 11:32 PM BISQUE GRADER): Relatively new onset of facial, tongue movements; no hx of anti-dopaminergic or antipsychotic drugs. Improvement of sx since initial presentation but consider etiology related to encephalopathy rather than TD. - Neuro c/s - CTM Assessment & Plan (06/29/2025 8:08 PM BISQUE GRADER): New onset of twisting facial and tongue movements over the past few weeks. No history of anti-dopaminergic agents. Patient reports improvement of symptoms since presentation. May be impacting slurred speech. - Consider neuro consult - Continue to monitor for improvement Assessment & Plan (06/16/2025 11:13 AM BISQUE GRADER): Her involuntary movements and grimacing his strongly [...] 03/06/2023 Assessment & Plan (07/09/2025 6:54 AM BISQUE GRADER): Baseline Cr around 1.3 - 1.7, presented [...] a.m. Assessment & Plan (07/08/2025 1:36 PM BISQUE GRADER): Baseline Cr around 1.3 - 1.7, presented [...] a.m. Assessment & Plan (07/07/2025 9:19 AM BISQUE GRADER): Baseline Cr around 1.3 - 1.7, presented [...] following Assessment & Plan (07/06/2025 10:53 AM BISQUE GRADER): Baseline Cr around 1.3 - 1.7, presented [...] following Assessment & Plan (07/05/2025 11:27 PM BISQUE GRADER): Baseline Cr around 1.3 - 1.7, presented [...] following Assessment & Plan (06/30/2025 9:29 AM BISQUE GRADER): Cr on presentation at 2.21 -> 2.58. [...] HRS Assessment & Plan (06/29/2025 11:32 PM BISQUE GRADER): See TR Assessment & Plan (06/29/2025 8:08 PM BISQUE GRADER): Cr on presentation at 2.21 -> 2.58. 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 female with a [...] paracentesis Assessment & Plan (06/29/2025 11:32 PM BISQUE GRADER): DDx includes hepatic encephalopathy ISO TR (elevated [...] considered Assessment & Plan (06/29/2025 8:08 PM BISQUE GRADER): Nael Cardoza is a 64 y.o. female with a [...] paracentesis Assessment & Plan (06/16/2025 11:10 AM BISQUE GRADER): Decompensated, based on history of hepatic encephalopathy [...] 10/10/2022 Assessment & Plan (10/12/2022 12:20 PM BISQUE GRADER): Episode of atrial flutter overnight with RVR up to 140s. Patient asymptomatic, normotensive. IV metoprolol X2 given to achieve rate control. [id number] vasc score of 3. TTE from 09/03 without valvular abnormalities. No new episodes today. Lytes within normal limits. - Continue automatic toe laster - Continue home dose of metoprolol 25mg BID - Given that patient might be listed for transplant, hepatology would prefer to avoid apixaban. Lovenox is not ideal given her platelet count less than 100. Her INR is too high to consider warfarin. Anemia 10/05/2022 Assessment & Plan (07/09/2025 6:54 AM BISQUE GRADER): Secondary to end stage liver disease, CKD, and acute illness. - CTM, transfuse PRN Assessment & Plan (07/08/2025 7:08 AM BISQUE GRADER): Secondary to end stage liver disease, CKD, and acute illness. - CTM, transfuse PRN Assessment & Plan (07/07/2025 9:19 AM BISQUE GRADER): Secondary to end stage liver disease, CKD, and acute illness. - CTM, transfuse PRN Assessment & Plan (07/06/2025 10:53 AM BISQUE GRADER): Secondary to end stage liver disease, CKD, and acute illness. - CTM, transfuse PRN Assessment & Plan (07/05/2025 11:27 PM BISQUE GRADER): Secondary to end stage liver disease, CKD, and acute illness. 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 female with a [...] paracentesis Assessment & Plan (06/29/2025 11:32 PM BISQUE GRADER): - See cirrhosis Assessment & Plan (06/29/2025 8:08 PM BISQUE GRADER): Nael Cardoza is a 64 y.o. female with a [...] paracentesis Assessment & Plan (06/16/2025 11:20 AM BISQUE GRADER): Mental status clear today. Continue lactulose and titrate to 3-5 bowel movements daily. Assessment & Plan (03/06/2023 5:49 PM CDT): Good control on current medical management. No changes indicated. Assessment & Plan (08/03/2022 1:05 PM BISQUE GRADER): Pt with hx of LYONS cirrhosis presenting with progressively worsening mental status over past several weeks. On initial examination patient was AAOx1, on subsequent exam she is now AAOx2 with appropriate responses. NH3 75. Unfortunately no safe area for bedside diagnostic paracentesis. Slurred speech and concerns for swallowing. GROUP COUNSELOR completed swallow study and normal. Head CT: No acute intracranial abnormality. -Awaiting Liver MRI -Increased Lactulose to 4x daily (only 1 stool on 08/02) - Rifaximin and Lactulose (goal 3-5 bowel movements) - Fall precautions. - PT/OT: Home with assistance. Assessment & Plan (08/02/2022 2:34 PM BISQUE GRADER): Pt with hx of LYONS cirrhosis presenting with progressively worsening mental status over past several weeks. On initial examination patient was AAOx1, on subsequent exam she is now AAOx2 with appropriate responses. NH3 75. Unfortunately no safe area for bedside diagnostic paracentesis. Slurred speech and concerns for swallowing. GROUP COUNSELOR completed swallow study and normal. Head CT: No acute intracranial abnormality. - Rifaximin and Lactulose (goal 3-5 bowel movements) - Fall precautions. - PT/OT: Home with assistance. - GROUP COUNSELOR completed bedside swallow and Normal Assessment & Plan (08/01/2022 3:28 PM BISQUE GRADER): Pt with hx of LYONS cirrhosis presenting [...] concerns for swallowing. - Fall precautions. - GROUP COUNSELOR/PT/OT Consults. Assessment & Plan (08/01/2022 4:16 AM BISQUE GRADER): Pt with hx of LYONS cirrhosis presenting [...] mellitus Assessment & Plan (07/09/2025 1:29 PM BISQUE GRADER): Home regimen is insulin glargine 44 units QHS and Humalog 8 units TIDAC. - continue dose-reduced Tresiba 30 units QHS + SSI, somewhat above goal glycemic control - Return to prior insulin regimen at discharge Assessment & Plan (07/08/2025 7:08 AM BISQUE GRADER): Home regimen is insulin glargine 44 units QHS and Humalog 8 units TIDAC. - continue dose-reduced Tresiba 30 units QHS + SSI Assessment & Plan (07/07/2025 9:19 AM BISQUE GRADER): Home regimen is insulin glargine 44 units QHS and Humalog 8 units TIDAC. - continue dose-reduced Tresiba 30 units QHS + SSI Assessment & Plan (07/06/2025 10:53 AM BISQUE GRADER): Home regimen is insulin glargine 44 units QHS and Humalog 8 units TIDAC. - continue dose-reduced Tresiba 30 units QHS + SSI Assessment & Plan (07/05/2025 11:27 PM BISQUE GRADER): Home regimen is insulin glargine 44 units QHS and Humalog 8 units TIDAC. - continue dose-reduced Tresiba 30 units QHS + SSI Assessment & Plan (06/30/2025 3:49 PM BISQUE GRADER): Regimen at home includes insulin glargine 44 units nightly, lispro 8 units with meals TID + SS up to 40u daily. - Tresiba 26 units nightly - lispro SS TID AC Assessment & Plan (06/30/2025 9:29 AM BISQUE GRADER): Regimen at home includes insulin glargine 44 units nightly, lispro 8 units with meals TID + SS up to 40u daily. - Tresiba 26 units nightly - lispro SS TID AC Assessment & Plan (06/29/2025 8:08 PM BISQUE GRADER): Regimen at home includes insulin glargine 44 [...] and exercise - Plan for meeting with deckhand shrimp boat, dietitian next visit Assessment & Plan (10/12/2022 2:58 PM BISQUE GRADER): Previously on dose reduced insulin regimen at OSH 20u lantus, 7u tid lispro + ssi. - Her blood sugars were initially on the lower side (90-100) in setting of poor po intake and TR. Continue SSI only for now and will uptitrate as needed. - Continue Lantus 10u/daily + lispro 4TID Assessment & Plan (08/03/2022 1:09 PM BISQUE GRADER): Home regimen of toujeo 42 units + SSI. -Lantus, Lispro TID AC and SSI -No Juice Diet -Consistent Carb+ 2gm NA diet. -CTM BGL Assessment & Plan (08/02/2022 2:38 PM BISQUE GRADER): Home regimen of toujeo 42 units + SSI. -Lantus, Lispro TID AC and SSI -No Juice Diet -Consistent Carb+ 2gm NA diet. -CTM BGL Assessment & Plan (08/01/2022 3:26 PM BISQUE GRADER): Home regimen of toujeo 42 units + SSI. Given TR and decreased PO intake, insulin regimen reduced to Lantus 20units. - Continue on 2g Na + DM2 diet - CTM BGL Assessment & Plan (08/01/2022 4:17 AM BISQUE GRADER): Home regimen of toujeo 42 units + SSI Given TR and decreased PO intake, will dose reduce insulin regimen, 20units + SSIand uptitrate as needed Continue on 2g Na + DM2 diet ERNESTINE (obstructive sleep apnea) Assessment & Plan (07/09/2025 6:54 AM BISQUE GRADER): - continue nocturnal NPPV Assessment & Plan (07/08/2025 7:08 AM BISQUE GRADER): - continue nocturnal NPPV Assessment & Plan (07/07/2025 9:19 AM BISQUE GRADER): - continue nocturnal NPPV Assessment & Plan (07/06/2025 10:53 AM BISQUE GRADER): - continue nocturnal NPPV Assessment & Plan (07/05/2025 11:27 PM BISQUE GRADER): - continue nocturnal NPPV Resolved Problems Problem Noted Date Diagnosed Date Resolved Date Screening for colorectal cancer 10/06/2024 11/25/2024 Hypoxic ischemic encephalopa thy of , unspecified stage 09/24/2024 10/08/2024 Esophageal varices without bleeding 07/17/2024 11/25/2024 Lymphedema 01/16/2023 07/15/2024 Other ascites 10/22/2022 07/15/2024 Overview (10/22/2022): Added automatically from request for surgery [id number] Volume overload 10/06/2022 05/29/2024 Assessment & Plan (10/10/2022 1:09 PM BISQUE GRADER): In the setting of LYONS cirrhosis. Diuretics [...] adult 10/04/2022 Shortness of breath 10/02/2022 07/15/20 Esophageal dysphagia 08/22/2022 Overview (08/22/2022): Added automatically from request for surgery [id number] Portal vein thrombosis 08/01/202208/22 Assessment & Plan (08/03/2022 1:09 PM BISQUE GRADER): -Apixaban 2.5mg BID Assessment & Plan (08/02/2022 2:39 PM BISQUE GRADER): -Apixaban 2.5mg BID Assessment & Plan (08/01/2022 3:27 PM BISQUE GRADER): -Apixaban 2.5mg BID Assessment & Plan (08/01/2022 4:17 AM BISQUE GRADER): Continue home apixaban LYONS (nonalcoholic steatohepatitis) 11/02/2021 07/15/2024 Abnormal mammogram of right breast 11/02/2020 08/22/2022 Preop cardiovascular exam 09/23/2019 Overview (09/23/2019): Added automatically from request for surgery [id number] Colon cancer screening 04/21/201908/22 Overview (04/21/2019): Added automatically from request for surgery [id number] Esophageal varices without bleeding (CMS/HCC) 04/21/20 19 08/22/2022 Overview (04/21/2019): Added automatically from request for surgery [id number] Mass of lower lobe of right lung 03/14/2018 02/24/2025 Cancer Staging:Clinical:Stage Unknown(cT1a, cNX) - Unsigned 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 07/26/2016 08/22/2022 Neutropenia 07/14/2015 07/15/2024 Portal vein thrombosis 07/14/201508/22 BMI 45.0-49.9, adult 11/18/201418/2 024 Abnormal magnetic resonance imaging study 05/20/2014 08/22/2022 Biliary colic 05/10/2014 08/22/2022 Lesion of liver 04/30/2014 08/22/2022 Decreased granulocyte count 01/14/2014 07/15/2024 Lymphopenia 03/17/2013 07/15/2024 Lichen planus 06/03/2012 02/24/2025 Rash 03/25/2012 08/22/2022 Encounters Date Type Department Care Team Description 07/21/2025 [id number] [facility] [place] [phone] Marina Le, RN 07/16/2025 SHOP/CHAP Subsequent Outreach [facility] [address] [facility] [place] [phone] Marina Le, RN 07/12/2025 Orders Only [facility] Trans[facility] Liver [address] [facility] [address] [facility] Mailop -[address] [place] [address] Chelsea Barker, TYRA 07/12/2025 SHOP/CHAP Initial Outreach [facility] [address] [facility] [place] [phone] Marina Le, TYRA 07/12/2025 SHOP/CHAP Initial Eligibility Review [facility] [address] [facility] [place] [phone] Marina Le, RN 07/09/2025 Telephone [facility] Transplant Liver [address] [facility] [address] [facility] [place] [address] Chelsea Barker, TYRA 07/06/2025 Telephone [facility] Trans[facility] Liver [address] [facility] [address] [place] [address] Ashley Rahman, TYRA After Hours 07/02/2025 Telephone [facility] Liver [address] [place] [address] [facility] [place] [address] Chelsea Barker, TYRA 07/01/2025 Telephone [facility] Trans[facility] Liver [address] [facility] [address] Mailstop [phone] [place] [address] Melisas Elizalde, TYRA Organ Offer Follow-up 06/30/2025 4:30 PM BISQUE GRADER Anesthesia Event [facility] Operating Room 1 [place] [phone] Carter Ortiz MD Montes de Oca Angarita, Arianna, MD 06/30/2025 2:15 PM BISQUE GRADER Ancillary Procedure [facility] Operating Room 1 [place] [phone] 06/30/2025 Telephone [facility] [address] [facility] 8th [place] [address] [place] [phone] Padmini Leslie 06/30/2025 Telephone [facility] [address] [facility] [address] [place] [phone] Lauren Garcia, [facility] Test Claims 06/29/2025 Telephone [facility] Transplant Liver [address] [facility] [address] Mailstop 07-47-326 [place] [address] Ashley Rahman RN After Hours; Transplant Organ Offer 06/29/2025 Telephone [facility] Trans[facility] Liver [address] [facility] [address] Mailstop [phone] [place] [address] Chelsea Barker, TYRA 06/28/2025 8:48 PM BISQUE GRADER - 07/09/2025 6:30 PM BISQUE GRADER Hospital Encounter [address] [phone] Yossi Ga MD Brown, See Bhardwaj MD PhD Lexis, MD Jack Michaels, MD Ann Marie Kyle, MD Amelia Escobedo Matthew A., MD Stephenson, MD Alexx Alonso Cheuk Ho Jeffrey, MD Grondalski, MD Bethanie Uriostegui Nathan Andrew, MD 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); Hepatorenal syndrome (HCC); Typical atrial flutter (HCC); Atrial fibrillation and flutter; TR (acute kidney injury); Atrial flutter, unspecified type (HCC); Type 2 diabetes mellitus with stage 3a chronic kidney disease, unspecified whether jail insulin use (HCC) Discharge Disposition: Discharge to home or self care 06/28/2025 Documentation [facility] Trans[facility] Liver [address] [place] [address] 340 Mailop [phone] [place] [address] KareledaCelsa 06/17/2025 Telephone [facility] Transplant Liver [address] [place] [address] 340 Mailop [phone] [place] [address] Chelsea Barker RN 06/16/2025 1:20 PM BISQUE GRADER Lab [facility] [address] [place] [address] 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); Stage 3a chronic kidney disease (HCC); Hepatic encephalopathy (HCC); Tardive dyskinesia 06/16/2025 Telephone [facility] Transplant Liver [address] [place] [address] 340 Mailstop [phone] [place] [address] Chelsea Barker RN 06/16/2025 Results Follow-Up [facility] Trans[facility] Liver [address] [place] [address] 340 Mailop [phone] [place] [address] Chelsea Barker RN Comprehensive metabolic panel, CBC without differential, Protime-INR, Additional followed-up results: 2 06/16/2025 Documentation [facility] Trans[facility] Liver [address] [facility] [address] Mailstop -24-[address] [place] [address] Celsa Vargas 06/14/2025 Telephone [facility] Trans[facility] Liver [address] [facility] [address] Mailstop -[address] [place] [address] Chelsea Barker, TYRA 06/14/2025 Documentation [facility] Trans[facility] Liver [address] [facility] [address] Mailop [facility] [place] [address] Celsa Vargas 06/14/2025 Telephone [facility] Trans[facility] Liver [address] [facility] [address] [place] [address] Chelsea Barker RN 06/11/2025 Telephone [facility] Trans[facility] Liver [address] [facility] [address] Mailop -[address] [place] [address] Chelsea Barker RN 06/11/2025 Telephone [facility] [address] [place] [address] 12th [place] [address] Ruslan Pedro MD 06/09/2025 Results Follow-Up [facility] Trans[facility] Liver [address] [facility] [address] Mailstop -[address] [place] [address] Chelsea Barker, TYRA Comprehensive metabolic panel, Protime-INR, eGFR 06/08/2025 3:55 PM CDT Lab [address] [address] 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; Metabolic dysfunction-associate d steatohepatitis (MASH) 06/08/2025 Telephone [facility] Trans[facility] Liver [address] [facility] [address] Mailstop -81[address] [place] [address] Chelsea Barker, TYRA 06/08/2025 Home Infusion [facility] Home Infusion Therapy [address] [place] [address] Yaw Catalan CPhT 06/08/2025 Telephone [facility] Transplant Liver [address] [facility] 3401 Mailstop [phone] [place] [address] Chelsea Barker, TYRA 06/07/2025 Telephone [facility] Transplant Liver [address] [facility] 3401 Mailstop 10-06-147 [place] [address] Chelsea Barker, TYRA 05/31/2025 Results Follow-Up [facility] Transplant Liver [address] [place] [address] 3401 Mailstop [phone] [place] [address] Chelsea Barker, TYRA Transthoracic Echo (TTE) With Bubble Study 05/28/2025 2:03 PM CDT - 05/28/2025 11:59 PM CDT [facility] Cardiac Diagnostic Lab [address] 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 13th [place] [address] [place] [address] Type 2 diabetes mellitus with stage 3a chronic kidney disease, with long-term current use of insulin (HCC) (Primary Dx) 05/28/2025 12:30 PM CDT [facility] Met[facility] and Lipid [address] 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; Class 3 severe obesity due to excess calories with serious comorbidity and body mass index (BMI) of 40.0 to 44.9 in adult; Primary hypertension 05/13/2025 Telephone [facility] Trans[facility] Liver [address] [facility] [address] Mailop -010 [place] [address] Chelsea Barkre RN 05/13/2025 Documentation [facility] Trans[facility] Liver [address] [facility] [address] Mailstop -698 [place] [address] Celsa Vargas 05/13/2025 Telephone [facility] Trans[facility] Liver [address] [facility] [address] Mailop -899 [place] [address] Chelsea Barker RN 05/12/2025 12:00 PM CDT Lab [facility] ([facility]) [address] [place] [address] 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) 05/12/2025 Results Follow-Up [facility] Trans[facility] Liver [address] [facility] 3401 Mailstop -40-674 [place] [address] Chelsea Barker, TYRA CBC with auto differential, Comprehensive metabolic panel, [id number], Tumor Marker, Additional followed-up results: 3 05/12/2025 Documentation [facility] Trans[facility] Liver [address] [facility] [address] Mailstop -341 [place] [address] Celsa Vargas 05/12/2025 Telephone [facility] Trans[facility] Liver [address] [facility] [address] Mailstop -227 [place] [address] Celsa Vargas 05/12/2025 Telephone [facility] Trans[facility] Liver [address] [facility] [address] Mailstop 30-80-302 [place] [address] Chelsea Barker, TYRA 05/10/2025 Telephone [facility] [address] [facility] 12th [place] [address] [place] [phone] Ruby Guzman from Last 3 Months Immunizations Immunization Administration Dates Next Due Hep B Vaccine 01/22/2024,12/18/2023 Influenza, Quadrivalent, Spl it, Intramuscular 05/01/2019,05/26/2015 Influenza, Quadrivalent, Spl it, Preservative Free, Intramuscular 07/02/2023,04/29/2020,05/01/2019,05/09,05/08/2018,05/23/2017,05/17/2016 Influenza, Trivalent, IM (MDV) 04/28/2021,2013 Influenza, Trivalent, Preser vative Free, Intramuscular 05/29/2013 Influenza, Unspecified 05/04/2024 [employer] SARS-CoV-2 Vaccination 10/17/2020 Pneumococcal Conjugate PCV [...] radiation oncology 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 No 10/05/2024 Humiliation, Afraid, Rape, [...] neighbors? More than three times a week 07/12/2025 How often do you get togethe r with friends or relatives? More than three times a week 07/12/2025 How often do you attend chur ch or spiritism services? Never 07/12/2025 Do you belong to any clubs o r organizations such as yarsanism groups, unions, fraternal or athletic groups, or school groups? No 07/12/2025 How often do you attend meet ings of the clubs or organizations you belong to? Never 07/12/2025 Are you , , di vorced, , never , or living with a partner? 07/12/2025 AUDIT-C Answer Date Recorded Q1: How often [...] medical care, and heating? Not very hard 07/12/2025 [facility] - Occupational Stress [...] the money to buy more. Never true 07/12/20 25 Within the past 12 months, t he food you bought just didn't last and you didn't have money to get more. Never true 07/12/2025 PRAPARE - Transportation Answer Date Re corded In the past 12 months, has l ack of transportation kept you from medical appointments or from getting medications? No 08/2024 In the past 12 months, has l ack of transportation kept you from meetings, work, or from getting things needed for daily living? No 07/12/2025 Housing Stability Vital Sign Answer Terrance e Recorded In the last 12 months, was t here a time when you were not able to pay the mortgage or rent on time? No 07/12/2025 In the past 12 months, how m any times have you moved where you were living? 0 07/12/2025 At any time in the past 12 m [facility], were you homeless or living in a fdc (including now)? No 07/12/2025 [facility] Utilities Answer Date Recorded In the past 12 months has th e School Places, gas, oil, or water company threatened to shut off services in your home? No 07/12/2025 Personal Safety Answer Date Recorded Have you ever been in or are you currently in a harmful physical or emotional relationship or is someone making you feel afraid or unsafe? 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 file Last Filed Vital Signs Vital Sign Reading Time Taken Comments Blood Pressure 131/45 07/09/2025 1:44 PM BISQUE GRADER Pulse 69 07/09/2025 1:44 PM BISQUE GRADER Temperature 36.6 C (97.8 F) 07/09/2025 1:44 PM BISQUE GRADER Respiratory Rate 18 07/09/2025 1:44 PM BISQUE GRADER Oxygen Saturation 98% 07/09/2025 1:44 PM BISQUE GRADER Inhaled Oxygen Concentration - - Weight 111.3 kg (245 lb 6.4 oz) 07/07/2025 5:45 AM BISQUE GRADER Height 170.2 cm (5' 7) 07/05/2025 1:23 PM BISQUE GRADER Body Mass Index 38.44 07/05/2025 1:23 PM BISQUE GRADER Plan of Treatment Scheduled Procedures Name Priority Associated Diagnoses Date/Ti me TRANSPLANT LIVER Metabolic dysfunction-associated steatohepatitis (MASH) TRANSPLANT KIDNEY Metabolic dysfunction-associated steatohepatitis (MASH) COLONOSCOPY Routine adult health maintenance LYONS (nonalcoholic steatohepatitis) Health Maintenance Due Date Last Done Comments Dilated Eye Exam 1960 Foot Exam 1960 Regular Well Visit/Exam 18-64 1978 Pneumococcal vaccine <65 (3 of 3 - PCV20 or PCV21) 03/24/2019 05/26/2015, 03/24/2014 Albumin Creatinine Ratio, Urine 03/01/2022 Depression Screening 01/27/2024 01/26/2023, 01/26/2023, 01/05/2023, Additional history exists DTaP/Tdap/Td Vaccine (2 - Td or Tdap) 03/24/2024 03/24/2014 Covid-19 Vaccine (4 - 2024-2 6 season) 2025 07/02/2023, 09/11/2021, 10/17/2020 Influenza Vaccine (#1) 2025 4, 07/02/2023, 04/28/2021, Additional history exists Breast Cancer Screening-Mammogram 04/27/2025 024, 12/06/2021 Cervical Cancer Screening 04/28/2025 04/28/2024, Hemoglobin A1C 12/26/2025 06/28/2025, 05/12, 11/25/2024, Additional history exists Lipid Panel 06/30/2026 06/30/2025, 06/12, 04/22/2024, Additional history exists eGFR 07/09/2026 07/09/2025, 06/13, 07/06/2025, Additional history exists Colon Cancer Screening-Colonoscopy 05/30/2032 05/30/2022, 10/26/2019 Zoster Vaccine Completed 02/17/2020, 05/29/2019 Colon Cancer Screening-CT Colonography Discontinued 05/30/2022, 10/26/2019 Colon Cancer Screening-DNA Stool Discontinued 05/30/20 22, 10/26/2019 Colon Cancer Screening-FIT Discontinued 05/30/2022, Colon Cancer Screening-Sigmoidoscopy Discontinued 05/30/2022, 10/26/2019 Hepatitis C Screening Completed 06/30/2025 , 06/30/2025, 06/16/2023, Additional history exists Goals Goal Patient Goal Type Associated Problems Recent Progress Patient-Stated? Author Patient will have kept initial appointment and will show signs of improvement to baseline Care Plan Initial Follow-Up Appointment Marina Madera, RN Note: Pt will get INR drawn today at PCP office and has PCP appointment on 12/4. Her drives to appointments. Patient will have access to medications needed for healthy outcomes Care Plan Barriers to Medication Adherence Marina Madera RN Procedures Procedure Name Priority Date/Time Associated Diagnosis Comments POCT GLUCOSE DEVICE Routine 07/09/2025 12:16 PM BISQUE GRADER POCT GLUCOSE DEVICE Routine 07/09/2025 7 :29 AM BISQUE GRADER EGFR Routine 07/09/2025 12:45 AM BISQUE GRADER IMMATURE PLATELET FRACTION Routine 07/09/2025 12:45 AM BISQUE GRADER DIFFERENTIAL AUTO Routine 07/09/2025 12:45 AM BISQUE GRADER PROTIME-INR Routine 07/09/2025 12:45 AM BISQUE GRADER TYPE AND SCREEN Timed 07/09/2025 12:45 AM BISQUE GRADER PHOSPHORUS Routine 07/09/2025 12:45 AM BISQUE GRADER HEPATIC FUNCTION PANEL Routine 07/09/2025 12:45 AM BISQUE GRADER CBC WITH AUTO DIFFERENTIAL Routine 07/09/2025 12:45 AM BISQUE GRADER BASIC METABOLIC PANEL Routine 07/09/2025 12:45 AM BISQUE GRADER POCT GLUCOSE DEVICE Routine 07/08/2025 10:22 PM BISQUE GRADER POCT GLUCOSE DEVICE Routine 07/08/2025 5 :30 PM BISQUE GRADER POCT GLUCOSE DEVICE Routine 07/08/2025 12:25 PM BISQUE GRADER POCT GLUCOSE DEVICE Routine 07/08/2025 7 :59 AM BISQUE GRADER POCT GLUCOSE DEVICE Routine 07/08/2025 1 :42 AM BISQUE GRADER IMMATURE PLATELET FRACTION Routine 07/08/2025 12:31 AM BISQUE GRADER EGFR Routine 07/08/2025 12:31 AM BISQUE GRADER DIFFERENTIAL AUTO Routine 07/08/2025 12:31 AM BISQUE GRADER PHOSPHORUS Routine 07/08/2025 12:31 AM BISQUE GRADER HEPATIC FUNCTION PANEL Routine 07/08/2025 12:31 AM BISQUE GRADER CBC WITH AUTO DIFFERENTIAL Routine 07/08/2025 12:31 AM BISQUE GRADER BASIC METABOLIC PANEL Routine 07/08/2025 12:31 AM BISQUE GRADER POCT GLUCOSE DEVICE Routine 07/07/2025 7 :31 PM BISQUE GRADER POCT GLUCOSE DEVICE Routine 07/07/2025 5 :28 PM BISQUE GRADER POCT GLUCOSE DEVICE Routine 07/07/2025 1 :10 PM BISQUE GRADER POCT GLUCOSE DEVICE Routine 07/07/2025 11:09 AM BISQUE GRADER PROTIME-INR Timed 07/07/2025 9:34 AM BISQUE GRADER POCT GLUCOSE DEVICE Routine 07/07/2025 8 :22 AM BISQUE GRADER POCT GLUCOSE DEVICE Routine 07/07/2025 2 :06 AM BISQUE GRADER EGFR Routine 07/06/2025 11:48 PM BISQUE GRADER DIFFERENTIAL AUTO Routine 07/06/2025 11:48 PM BISQUE GRADER PHOSPHORUS Routine 07/06/2025 11:48 PM BISQUE GRADER MAGNESIUM Routine 07/06/2025 11:48 PM BISQUE GRADER HEPATIC FUNCTION PANEL Routine 07/06/2025 11:48 PM BISQUE GRADER CBC WITH AUTO DIFFERENTIAL Routine 07/06/2025 11:48 PM BISQUE GRADER BASIC METABOLIC PANEL Routine 07/06/2025 11:48 PM BISQUE GRADER POCT GLUCOSE DEVICE Routine 07/06/2025 9 :04 PM BISQUE GRADER POCT GLUCOSE DEVICE Routine 07/06/2025 4 :47 PM BISQUE GRADER POCT GLUCOSE DEVICE Routine 07/06/2025 11:38 AM BISQUE GRADER POCT GLUCOSE DEVICE Routine 07/06/2025 8 :52 AM BISQUE GRADER POCT GLUCOSE DEVICE Routine 07/06/2025 2 :31 AM BISQUE GRADER EGFR Routine 07/05/2025 10:45 PM BISQUE GRADER DIFFERENTIAL AUTO Routine 07/05/2025 10:45 PM BISQUE GRADER TYPE AND SCREEN Timed 07/05/2025 10:45 PM BISQUE GRADER PHOSPHORUS Routine 07/05/2025 10:45 PM BISQUE GRADER MAGNESIUM Routine 07/05/2025 10:45 PM BISQUE GRADER HEPATIC FUNCTION PANEL Routine 07/05/2025 10:45 PM BISQUE GRADER CBC WITH AUTO DIFFERENTIAL Routine 07/05/2025 10:45 PM BISQUE GRADER BASIC METABOLIC PANEL Routine 07/05/2025 10:45 PM BISQUE GRADER POCT GLUCOSE DEVICE Routine 07/05/2025 8 :11 PM BISQUE GRADER POCT GLUCOSE DEVICE Routine 07/05/2025 4 :18 PM BISQUE GRADER ECG 12-LEAD STAT 07/05/2025 10:54 AM BISQUE GRADER ECG 12-LEAD STAT 07/05/2025 9:42 AM BISQUE GRADER POCT GLUCOSE DEVICE Routine 07/05/2025 7 :12 AM BISQUE GRADER CRITICAL CARE Routine 07/05/2025 6:28 AM BISQUE GRADER 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 POCT GLUCOSE DEVICE Routine 07/04/2025 8 :44 PM BISQUE GRADER EGFR Routine 07/04/2025 8:27 PM BISQUE GRADER IMMATURE PLATELET FRACTION Routine 07/04/2025 8:27 PM BISQUE GRADER DIFFERENTIAL AUTO Routine 07/04/2025 8:2 7 PM BISQUE GRADER PROTIME-INR Routine 07/04/2025 8:27 PM BISQUE GRADER PHOSPHORUS Routine 07/04/2025 8:27 PM BISQUE GRADER MAGNESIUM Routine 07/04/2025 8:27 PM BISQUE GRADER HEPATIC FUNCTION PANEL Routine 07/04/2025 8:27 PM BISQUE GRADER CBC WITH AUTO DIFFERENTIAL Routine 07/04/2025 8:27 PM BISQUE GRADER BASIC METABOLIC PANEL Routine 07/04/2025 8:27 PM BISQUE GRADER CRITICAL CARE Routine 07/04/2025 6:07 PM BISQUE GRADER 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 POCT GLUCOSE DEVICE Routine 07/04/2025 5 :25 PM BISQUE GRADER POCT GLUCOSE DEVICE Routine 07/04/2025 11:07 AM BISQUE GRADER POCT GLUCOSE DEVICE Routine 07/04/2025 7 :14 AM BISQUE GRADER CRITICAL CARE Routine 07/04/2025 6:31 AM BISQUE GRADER 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 EGFR Timed 07/04/2025 3:55 AM BISQUE GRADER IMMATURE PLATELET FRACTION Timed 07/04/2025 3:55 AM BISQUE GRADER BASIC METABOLIC PANEL Timed 07/04/2025 3:55 AM BISQUE GRADER CBC WITHOUT DIFFERENTIAL Timed 07/04/2025 3:55 AM BISQUE GRADER POCT GLUCOSE DEVICE Routine 07/04/2025 2 :05 AM BISQUE GRADER TRANSFUSE RED BLOOD CELLS Timed 07/03/2025 9:08 PM BISQUE GRADER PREPARE RBC STAT 07/03/2025 8:38 PM BISQUE GRADER POCT GLUCOSE DEVICE Routine 07/03/2025 8 :34 PM BISQUE GRADER EGFR Routine 07/03/2025 7:58 PM BISQUE GRADER PROTIME-INR STAT 07/03/2025 7:58 PM BISQUE GRADER IMMATURE PLATELET FRACTION Routine 07/03/2025 7:58 PM BISQUE GRADER DIFFERENTIAL AUTO Routine 07/03/2025 7:5 8 PM BISQUE GRADER APTT STAT 07/03/2025 7:58 PM BISQUE GRADER AMMONIA Routine 07/03/2025 7:58 PM BISQUE GRADER PHOSPHORUS Routine 07/03/2025 7:58 PM BISQUE GRADER MAGNESIUM Routine 07/03/2025 7:58 PM BISQUE GRADER HEPATIC FUNCTION PANEL Routine 07/03/2025 7:58 PM BISQUE GRADER CBC WITH AUTO DIFFERENTIAL Routine 07/03/2025 7:58 PM BISQUE GRADER BASIC METABOLIC PANEL Routine 07/03/2025 7:58 PM BISQUE GRADER CRITICAL CARE Routine 07/03/2025 6:42 PM BISQUE GRADER 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 XR CHEST 1 VIEW Timed 07/03/2025 5:25 PM BISQUE GRADER CRITICAL CARE Routine 07/03/2025 3:38 PM BISQUE GRADER TR (acute kidney injury) Atrial flutter, unspecified type (HCC) POCT GLUCOSE DEVICE Routine 07/03/2025 3 :04 PM BISQUE GRADER APTT STAT 07/03/2025 2:05 PM BISQUE GRADER POCT GLUCOSE DEVICE Routine 07/03/2025 11:44 AM BISQUE GRADER EGFR Timed 07/03/2025 10:47 AM BISQUE GRADER BASIC METABOLIC PANEL Timed 07/03/2025 10:47 AM BISQUE GRADER CRITICAL CARE Routine 07/03/2025 7:28 AM BISQUE GRADER 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 PROTIME-INR STAT 07/03/2025 7:17 AM BISQUE GRADER APTT STAT 07/03/2025 7:17 AM BISQUE GRADER EGFR Timed 07/03/2025 5:15 AM BISQUE GRADER BASIC METABOLIC PANEL Timed 07/03/2025 5:15 AM BISQUE GRADER POCT GLUCOSE DEVICE Routine 07/03/2025 2 :15 AM BISQUE GRADER US KIDNEY COMPLETE IP Routine 07/03/2025 2: 14 AM BISQUE GRADER APTT STAT 07/03/2025 12:50 AM BISQUE GRADER POCT GLUCOSE DEVICE Routine 07/02/2025 9 :55 PM BISQUE GRADER EGFR Routine 07/02/2025 9:44 PM BISQUE GRADER DIFFERENTIAL AUTO Routine 07/02/2025 9:4 4 PM BISQUE GRADER TYPE AND SCREEN Timed 07/02/2025 9:44 PM BISQUE GRADER PHOSPHORUS Routine 07/02/2025 9:44 PM BISQUE GRADER MAGNESIUM Routine 07/02/2025 9:44 PM BISQUE GRADER HEPATIC FUNCTION PANEL Routine 07/02/2025 9:44 PM BISQUE GRADER CBC WITH AUTO DIFFERENTIAL Routine 07/02/2025 9:44 PM BISQUE GRADER BASIC METABOLIC PANEL Routine 07/02/2025 9:44 PM BISQUE GRADER OH ARTL CATHJ/CANNULJ MNTR/TRANSFUSION SPX PRQ Routine 07/02/2025 9:30 PM BISQUE GRADER 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 CRITICAL CARE Routine 07/02/2025 8:18 PM BISQUE GRADER 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 POCT GLUCOSE DEVICE Routine 07/02/2025 7 :08 PM BISQUE GRADER POCT GLUCOSE DEVICE Routine 07/02/2025 7 :07 PM BISQUE GRADER APTT STAT 07/02/2025 5:10 PM BISQUE GRADER POCT GLUCOSE DEVICE Routine 07/02/2025 3 :09 PM BISQUE GRADER IMMATURE PLATELET FRACTION Timed 07/02/2025 2:42 PM BISQUE GRADER CBC WITHOUT DIFFERENTIAL Timed 07/02/2025 2:42 PM BISQUE GRADER POCT GLUCOSE DEVICE Routine 07/02/2025 11:03 AM BISQUE GRADER TRANSFUSE RED BLOOD CELLS Timed 07/02/2025 9:49 AM BISQUE GRADER UREA NITROGEN, URINE, RANDOM STAT 07/02/2025 8:59 AM BISQUE GRADER PROTIME-INR STAT 07/02/2025 8:59 AM BISQUE GRADER APTT STAT 07/02/2025 8:59 AM BISQUE GRADER CREATININE, URINE, RANDOM STAT 07/02/2025 8:59 AM BISQUE GRADER SODIUM, URINE, RANDOM STAT 07/02/2025 8:59 AM BISQUE GRADER URINALYSIS AND REFLEX TO MICROSCOPIC STAT 07/02/2025 8:59 AM BISQUE GRADER POCT GLUCOSE DEVICE Routine 07/02/2025 7 :23 AM BISQUE GRADER CRITICAL CARE Routine 07/02/2025 6:15 AM BISQUE GRADER 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 Hepatorenal syndrome (HCC) EGFR Timed 07/02/2025 5:58 AM BISQUE GRADER CBC WITHOUT DIFFERENTIAL Timed 07/02/2025 5:58 AM BISQUE GRADER BASIC METABOLIC PANEL Timed 07/02/2025 5:58 AM BISQUE GRADER POCT GLUCOSE DEVICE Routine 07/02/2025 3 :45 AM BISQUE GRADER EGFR Routine 07/01/2025 8:55 PM BISQUE GRADER DIFFERENTIAL AUTO Routine 07/01/2025 8:5 5 PM BISQUE GRADER PHOSPHORUS Routine 07/01/2025 8:55 PM BISQUE GRADER MAGNESIUM Routine 07/01/2025 8:55 PM BISQUE GRADER HEPATIC FUNCTION PANEL Routine 07/01/2025 8:55 PM BISQUE GRADER CBC WITH AUTO DIFFERENTIAL Routine 07/01/2025 8:55 PM BISQUE GRADER BASIC METABOLIC PANEL Routine 07/01/2025 8:55 PM BISQUE GRADER POCT GLUCOSE DEVICE Routine 07/01/2025 8 :32 PM BISQUE GRADER INFECTION PREVENTION TOMASA AURIS PCR, SURVEILLANCE Routine 07/01/2025 7:30 PM BISQUE GRADER CRITICAL CARE Routine 07/01/2025 6:33 PM BISQUE GRADER 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 POCT GLUCOSE DEVICE Routine 07/01/2025 5 :14 PM BISQUE GRADER POCT GLUCOSE DEVICE Routine 07/01/2025 1 :16 PM BISQUE GRADER POCT GLUCOSE DEVICE Routine 07/01/2025 8 :04 AM BISQUE GRADER CRITICAL CARE Routine 07/01/2025 7:51 AM BISQUE GRADER 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 Atrial fibrillation and flutter EGFR Timed 07/01/2025 5:16 AM BISQUE GRADER BASIC METABOLIC PANEL Timed 07/01/2025 5:16 AM BISQUE GRADER POCT GLUCOSE DEVICE Routine 07/01/2025 4 :02 AM BISQUE GRADER ECG 12-LEAD STAT 07/01/2025 12:17 AM BISQUE GRADER POCT GLUCOSE DEVICE Routine 07/01/2025 12:01 AM BISQUE GRADER ELECTIVE CARDIOVERSION Routine 07/01/2025 12:00 AM BISQUE GRADER Typical atrial flutter (HCC) EGFR Routine 06/30/2025 9:06 PM BISQUE GRADER CBC WITHOUT DIFFERENTIAL Routine 06/30/2025 9:06 PM BISQUE GRADER PHOSPHORUS Routine 06/30/2025 9:06 PM BISQUE GRADER MAGNESIUM Routine 06/30/2025 9:06 PM BISQUE GRADER COMPREHENSIVE METABOLIC PANEL Routine 06/30/2025 9:06 PM BISQUE GRADER PROTIME-INR STAT 06/30/2025 9:06 PM BISQUE GRADER APTT STAT 06/30/2025 9:06 PM BISQUE GRADER POCT GLUCOSE DEVICE Routine 06/30/2025 7 :56 PM BISQUE GRADER CRITICAL CARE Routine 06/30/2025 6:23 PM BISQUE GRADER ECG 12-LEAD STAT 06/30/2025 6:21 PM BISQUE GRADER POCT GLUCOSE DEVICE Routine 06/30/2025 6 :13 PM BISQUE GRADER EGFR Routine 06/30/2025 4:58 PM BISQUE GRADER DIFFERENTIAL AUTO Routine 06/30/2025 4:5 8 PM BISQUE GRADER PHOSPHORUS Routine 06/30/2025 4:58 PM BISQUE GRADER MAGNESIUM Routine 06/30/2025 4:58 PM BISQUE GRADER HEPATIC FUNCTION PANEL Routine 06/30/2025 4:58 PM BISQUE GRADER CBC WITH AUTO DIFFERENTIAL Routine 06/30/2025 4:58 PM BISQUE GRADER BASIC METABOLIC PANEL Routine 06/30/2025 4:58 PM BISQUE GRADER POC BLOOD GAS AND CHEMISTRIES, ARTERIAL Routine 06/30/2025 4:57 PM BISQUE GRADER POCT GLUCOSE DEVICE Routine 06/30/2025 4 :31 PM BISQUE GRADER HLA DONOR SPECIFIC ANTIBODY REPORT 06/30/2025 4:[address] HEART MORPHOLOGY W CONTRAST Critical/Life- Threatening 06/30/2025 3:01 PM BISQUE GRADER TONE ADD-ON FOR OR Routine 06/30/2025 2:1 0 PM BISQUE GRADER POCT GLUCOSE DEVICE Routine 06/30/2025 2 :02 PM BISQUE GRADER PREPARE RBC STAT 06/30/2025 1:56 PM BISQUE GRADER TRANSTHORACIC ECHO (TTE) COMPLETE W DOPPLER/CF W CONTRAST STAT 06/30/2025 1:28 PM BISQUE GRADER POCT GLUCOSE DEVICE Routine 06/30/2025 11:53 AM BISQUE GRADER POCT GLUCOSE DEVICE Routine 06/30/2025 7 :57 AM BISQUE GRADER HLA ANTIBODY SCREEN - SAB (CLASS I AND CLASS II) Routine 06/30/2025 1:40 AM BISQUE GRADER 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 HLA ANTIBODY SCREEN BY PRA OR SAB PER SCHEDULE (CLASS I AND CLASS II) STAT 06/30/2025 1:40 AM BISQUE GRADER 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 EGFR STAT 06/30/2025 12:43 AM BISQUE GRADER DIFFERENTIAL AUTO STAT 06/30/2025 12:43 AM BISQUE GRADER [id number] , TUMOR MARKER Routine 06/30/2025 12:43 AM BISQUE GRADER HLA ANTIBODY SCREEN BY PRA Routine 06/30/2025 12:43 AM BISQUE GRADER GAMMA GT STAT 06/30/2025 12:43 AM BISQUE GRADER BILIRUBIN, TOTAL AND DIRECT STAT 06/30/2025 12:43 AM BISQUE GRADER FIBRINOGEN STAT 06/30/2025 12:43 AM BISQUE GRADER HLA ANTIBODY SCREEN BY PRA STAT 06/30/2025 12:43 AM BISQUE GRADER IRON PROFILE W/ IBC Routine 06/30/2025 12:43 AM BISQUE GRADER LIPID PANEL Routine 06/30/2025 12:43 AM BISQUE GRADER URIC ACID Routine 06/30/2025 12:43 AM BISQUE GRADER FERRITIN Routine 06/30/2025 12:43 AM BISQUE GRADER TYPE AND SCREEN STAT 06/30/2025 12:43 AM BISQUE GRADER PHOSPHORUS STAT 06/30/2025 12:43 AM BISQUE GRADER PROTIME-INR STAT 06/30/2025 12:43 AM BISQUE GRADER COMPREHENSIVE METABOLIC PANEL STAT 06/30/2025 12:43 AM BISQUE GRADER CBC WITH AUTO DIFFERENTIAL STAT 06/30/2025 12:43 AM BISQUE GRADER APTT STAT 06/30/2025 12:43 AM BISQUE GRADER SEPSIS LACTATE WITH REFLEX Timed 06/30/2025 12:43 AM BISQUE GRADER HEPATITIS C RNA, QUANTITATIVE, PCR Routine 06/30/2025 12:43 AM BISQUE GRADER COVID-19 CORONAVIRUS RNA Routine 06/30/2025 12:43 AM BISQUE GRADER HIV 1/2 ANTIBODY PLUS P24 ANTIGEN Routine 06/30/2025 12:43 AM BISQUE GRADER HEPATITIS C ANTIBODY Routine 06/30/2025 12:43 AM BISQUE GRADER HEPATITIS B SURFACE ANTIGEN Routine 06/30/2025 12:43 AM BISQUE GRADER HEPATITIS B SURFACE ANTIBODY (IMMUNE STATUS) Routine 06/30/2025 12:43 AM BISQUE GRADER HEPATITIS B CORE ANTIBODY, TOTAL Routine 06/30/2025 12:43 AM BISQUE GRADER XR CHEST 1 VIEW ED Urgent/IP Urgent 06/29/2025 11:36 PM BISQUE GRADER HLA VIRTUAL CROSSMATCH RECIPIENT REPORT 06/29/2025 10:51 PM BISQUE GRADER PREPARE RBC Timed 06/29/2025 10:48 PM BISQUE GRADER DIFFERENTIAL AUTO Routine 06/29/2025 10:41 PM BISQUE GRADER PHOSPHORUS Routine 06/29/2025 10:41 PM BISQUE GRADER MAGNESIUM Routine 06/29/2025 10:41 PM BISQUE GRADER HEPATIC FUNCTION PANEL Routine 06/29/2025 10:41 PM BISQUE GRADER CBC WITH AUTO DIFFERENTIAL Routine 06/29/2025 10:41 PM BISQUE GRADER INFECTION PREVENTION MRSA ONLY (STAPHYLOCOCCUS AUREUS) PCR STAT 06/29/2025 9:25 PM BISQUE GRADER POCT GLUCOSE DEVICE Routine 06/29/2025 7 :48 PM BISQUE GRADER ECG 12-LEAD STAT 06/29/2025 6:03 PM BISQUE GRADER SEPSIS LACTATE WITH REFLEX Timed 06/29/2025 3:20 PM BISQUE GRADER POCT GLUCOSE DEVICE Routine 06/29/2025 3 :19 PM BISQUE GRADER CREATININE, URINE, RANDOM STAT 06/29/2025 1:16 PM BISQUE GRADER UREA NITROGEN, URINE, RANDOM STAT 06/29/2025 1:16 PM BISQUE GRADER SODIUM, URINE, RANDOM STAT 06/29/2025 1:16 PM BISQUE GRADER SEPSIS LACTATE WITH REFLEX STAT 06/29/2025 11:44 AM BISQUE GRADER ECG 12-LEAD Routine 06/29/2025 11:20 AM BISQUE GRADER POCT GLUCOSE DEVICE Routine 06/29/2025 11:16 AM BISQUE GRADER URINALYSIS, MICROSCOPIC ONLY STAT 06/29/2025 8:09 AM BISQUE GRADER URINE CULTURE STAT 06/29/2025 8:09 AM BISQUE GRADER URINALYSIS AND REFLEX TO MICROSCOPIC AND CULTURE STAT 06/29/2025 8:09 AM BISQUE GRADER MAGNESIUM STAT 06/29/2025 8:00 AM BISQUE GRADER EGFR STAT 06/29/2025 8:00 AM BISQUE GRADER BASIC METABOLIC PANEL STAT 06/29/2025 8:00 AM BISQUE GRADER TROPONIN I HIGH-SENSITIVITY 6-HOUR Timed 06/29/2025 8:00 AM BISQUE GRADER POCT GLUCOSE DEVICE Routine 06/29/2025 7 :57 AM BISQUE GRADER TROPONIN I HIGH-SENSITIVITY 4-HOUR Timed 06/29/2025 6:20 AM BISQUE GRADER ECG 12-LEAD Routine 06/29/2025 5:01 AM BISQUE GRADER TROPONIN I HIGH-SENSITIVITY 2-HOUR Timed 06/29/2025 4:10 AM BISQUE GRADER POCT GLUCOSE DEVICE Routine 06/29/2025 3 :53 AM BISQUE GRADER TROPONIN I HIGH-SENSITIVITY SERIES (BASELINE, 2HR, 4HR, 6HR) Routine 06/29/2025 2:00 AM BISQUE GRADER ECG 12-LEAD Routine 06/29/2025 1:44 AM BISQUE GRADER POCT GLUCOSE DEVICE Routine 06/28/2025 11:46 PM BISQUE GRADER OH CRITICAL CARE ILL/INJURED PATIENT INIT 30-74 MIN Routine 06/28/2025 11:00 PM BISQUE GRADER PROTIME-INR STAT 06/28/2025 10:32 PM BISQUE GRADER RESPIRATORY PATHOGEN PANEL STAT 06/28/2025 10:32 PM BISQUE GRADER BLOOD CULTURE STAT 06/28/2025 10:32 PM BISQUE GRADER BLOOD CULTURE STAT 06/28/2025 10:32 PM BISQUE GRADER XR CHEST 1 VIEW ED 06/28/2025 10:31 PM BISQUE GRADER HEMOGLOBIN A1C STAT 06/28/2025 8:28 PM BISQUE GRADER LIPID PANEL STAT 06/28/2025 8:28 PM BISQUE GRADER EGFR STAT 06/28/2025 8:28 PM BISQUE GRADER DIFFERENTIAL AUTO STAT 06/28/2025 8:2 8 PM BISQUE GRADER AMMONIA STAT 06/28/2025 8:28 PM BISQUE GRADER LIPASE STAT 06/28/2025 8:28 PM BISQUE GRADER BASIC METABOLIC PANEL STAT 06/28/2025 8:28 PM BISQUE GRADER HEPATIC FUNCTION PANEL STAT 06/28/2025 8:28 PM BISQUE GRADER CBC WITH AUTO DIFFERENTIAL STAT 06/28/2025 8:28 PM BISQUE GRADER ECG 12-LEAD STAT 06/28/2025 8:05 PM BISQUE GRADER POCT GLUCOSE DEVICE Routine 06/28/2025 4 :52 PM BISQUE GRADER POCT GLUCOSE DEVICE Routine 06/28/2025 4 :32 PM BISQUE GRADER EGFR Routine 06/16/2025 11:29 AM BISQUE GRADER 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 [id number] , TUMOR MARKER Routine 06/16/2025 11:29 AM BISQUE GRADER 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 PROTIME-INR Routine 06/16/2025 11:29 AM BISQUE GRADER 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 CBC WITHOUT DIFFERENTIAL Routine 06/16/2025 11:29 AM BISQUE GRADER 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 COMPREHENSIVE METABOLIC PANEL Routine 06/16/2025 11:29 AM BISQUE GRADER 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 EGFR Routine 06/08/2025 4:14 PM CDT 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 Metabolic dysfunction-associate d steatohepatitis (MASH) PROTIME-INR Routine 06/08/2025 4:14 PM CDT 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 Metabolic dysfunction-associate d steatohepatitis (MASH) COMPREHENSIVE METABOLIC PANEL Routine 06/08/2025 4:14 PM CDT 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 Metabolic dysfunction-associate d steatohepatitis (MASH) TRANSTHORACIC ECHO (TTE) COMPLETE W DOPPLER/CF W CONTRAST W BUBBLE Routine 05/28/2025 4:06 PM CDT 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 POCT HEMOGLOBIN A1C Routine 05/28/2025 12:32 PM CDT Type 2 diabetes mellitus with stage 3b chronic kidney disease, with long-term current use of insulin (HCC) POCT GLUCOSE Routine 05/28/2025 12:32 PM CDT Type 2 diabetes mellitus with stage 3b chronic kidney disease, with long-term current use of insulin (HCC) EGFR Routine 05/12/2025 10:46 AM CDT 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 DIFFERENTIAL AUTO Routine 05/12/2025 10:46 AM CDT 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 PROTIME-INR Routine 05/12/2025 10:46 AM CDT 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 [id number] , TUMOR MARKER Routine 05/12/2025 10:46 AM CDT 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 COMPREHENSIVE METABOLIC PANEL Routine 05/12/2025 10:46 AM CDT 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 CBC WITH AUTO DIFFERENTIAL Routine 05/12/2025 10:46 AM CDT 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 PAP AND HIGH RISK HPV, REFLEX TO GENOTYPING Routine 04/28/2024 10:41 AM CDT SCREENING MAMMOGRAM BILATERAL W PAL IP Routine 04/27/2024 1:55 PM CDT COLONOSCOPY 05/30/2022 9:28 AM CDT ALBUMIN CREATININE RATIO, URINE Routine 03/01/2021 2:45 PM CDT Type 2 diabetes mellitus without complication, unspecified whether jail insulin use (HCC) 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) from Last 3 Months or Most Recently Relevant to Health Maintenance Results * (ABNORMAL) POCT glucose (07/09/2025 12:16 PM BISQUE GRADER) Glucose, POC 240(H) 70 - 199 mg/dL Blood 07/09/2025 12:1 6 PM BISQUE GRADER 07/09/2025 12:16 PM BISQUE GRADER us Magnus Kovacs MD LAB POCT ORDERABLES - D EVICE Final Result Performing Organization Address [facility] Co de Phone Number [facility] [employer] [place] [address] * POCT glucose (07/09/2025 7:29 AM BISQUE GRADER) Glucose, POC 106 70 - 199 mg/dL Blood 07/09/2025 7:29 AM BISQUE GRADER 07/09/2025 7:29 AM BISQUE GRADER us Magnus Kovacs MD LAB POCT ORDERABLES - D EVICE Final Result Performing Organization Address [facility] Co de Phone Number [facility] Department [place] [employer] [place] [address] * Immature platelet fraction (07/09/2025 12:45 AM BISQUE GRADER) Pathologist [facility] IPF 3.1 1.6 - 10.1 % Blood 07/09/2025 12:4 5 AM BISQUE GRADER 07/09/2025 1:28 AM BISQUE GRADER Najma Pires MD LAB BLOOD ORDERABLES Final Result [facility] Department [place] [address] * (ABNORMAL) eGFR (07/09/2025 12:45 AM BISQUE GRADER) [facility] eGFR 26(L) >=60 mL/min/1. 73 m2 [...] interpretive data was last reviewed 2021. Blood 07/09/2025 12:4 5 AM BISQUE GRADER 07/09/2025 1:22 AM BISQUE GRADER Najma Pires MD LAB BLOOD ORDERABLES Final Result Performing Organization Address City/[facility]/ZIP Co de Phone Number [facility] Department [place] [address] * (ABNORMAL) Differential, auto (07/09/2025 12:45 AM BISQUE GRADER) Neutrophil abs 1.73 1.50 - 6.50 K/cumm Imm gran abs 0.00 0.00 - 0.10 K/cumm [facility] Lymphocyte abs 0.66(L) 0.80 - 3.30 K/cumm [facility] Monocyte abs 0.49 0.20 - 0.80 K/cumm [facility] Eosinophil abs 0.32 0.00 - 0.50 K/cumm [facility] Basophil abs 0.01 0.00 - 0.10 K/cumm [facility] Neutrophil pct 53.8 % [facility] Comment: Interpretive Data [...] was last revised on 2017. Lymphocyte pct 20.6 % [facility] Comment: Interpretive Data Percent cell count reference ranges are not reported, since discordance with absolute values may lead to misinterpretation of CBC data. Current Interpretive Data was last revised on 2017. Monocyte pct 15.3 % [facility] Comment: Interpretive Data Percent cell count reference ranges are not reported, since discordance with absolute values may lead to misinterpretation of CBC data. Current Interpretive Data was last revised on 2017. Eosinophil pct 10.0 % [facility] Comment: Interpretive Data [...] Data was last revised on 2017. Blood 07/09/2025 12:4 5 AM BISQUE GRADER 07/09/2025 1:22 AM BISQUE GRADER Najma Pires MD LAB BLOOD ORDERABLES Final Result [facility] Department [place] [address] * (ABNORMAL) CBC with auto differential (07/09/2025 12:45 AM BISQUE GRADER) [facility] WBC 3.09(L) 3.80 - 9.90 K/cumm Hgb 8.1(L) 11.9 - 15.5 g/dL [facility] Hct 24.8(L) 35.6 - 45.5 % [facility] Plt 48(C) 150 - 400 K/cumm [facility] Comment:Platelet count confi rmed by additional testing. Critical platelet count threshold determined by patient location: Outpatient:<50 K/cumm , Inpatient adults:<20 K/cumm , Inpatient pediatric:<25 K/cumm, BMT service:<10 K/cumm MPV 11.7 9.1 - 12.3 fL [facility] RBC 2.98(L) 3.90 - 5.20 M/cumm [facility] MCV 83.2 81.3 - 96.4 fL [facility] MCH 27.2 27.1 - 33.3 pg [facility] MCHC 32.7 32.3 - 35.7 g/dL [facility] RDW CV 15.9(H) 11.1 - 14.9 % [facility] RDW SD 47.8 35.7 - 48.1 fL [facility] NRBC abs 0.00 0.00 - 0.01 K/cumm [facility] Blood 07/09/2025 12:4 5 AM BISQUE GRADER 07/09/2025 1:22 AM BISQUE GRADER Najma Pires MD LAB BLOOD ORDERABLES Final Result [facility] Department [place] [address] * (ABNORMAL) Protime-INR (07/09/2025 12:45 AM BISQUE GRADER) PT 20.2(H) 10.2 - 13.5 sec INR 1.81(H) 0.90 - 1.20 [facility] Comment: Interpretive data Oral anticoagulant therapeutic ranges: Venous thromboembolism prophylaxis or treatment: 2.0-3.0 CARDIOLOGY Standard range: 2.0-3.0 High-intensity range: 2.5-3.5 Refer to indication-specific guidelines for appropriate target ranges for prosthetic heart valve replacement. Current interpretive data was last revised on 2019. Blood 07/09/2025 12:4 5 AM BISQUE GRADER 07/09/2025 1:23 AM BISQUE GRADER Narrative [facility] - 07/09/2025 1:50 AM BISQUE GRADER While on warfarin Stephanie Low NP LAB BLOOD ORDERABLES F inal Result Performing Organization Address City/[facility]/ZIP Co de Phone Number [facility] Department [place] [employer] [place] [address] * Type and screen (07/09/2025 12:45 AM BISQUE GRADER) Pathologist [facility] Rosemarie, indirect Negative ABO Rh A Positive [facility] Blood 07/09/2025 12:4 5 AM BISQUE GRADER 07/09/2025 1:18 AM BISQUE GRADER Narrative [facility] - 07/09/2025 2:09 AM BISQUE GRADER Has the patient had Daratumumab or Isatuximab in the past 6 months?->Unknown us Najma Pires MD LAB BLOOD BANK TEST ORDERAB LES Final Result [facility] [employer] [place] [address] * Phosphorus (07/09/2025 12:45 AM BISQUE GRADER) Phosphorus, pl 3.5 2.3 - 4.5 mg/dL Blood 07/09/2025 12:4 5 AM BISQUE GRADER 07/09/2025 1:22 AM BISQUE GRADER Najma Pires MD LAB BLOOD ORDERABLES Final Result Performing Organization Address [facility] Co de Phone Number [facility] Department [place] [address] * (ABNORMAL) Hepatic function panel (07/09/2025 12:45 AM BISQUE GRADER) Pathologist [facility] Bilirubin, total 1.5(H) 0.1 - 1.2 mg/dL Bilirubin, direct 0.7(H) 0.1 - 0.3 mg/dL [facility] Protein, pl 6.1(L) 6.5 - 8.5 g/dL [facility] Albumin 4.3 3.5 - 5.0 g/dL [facility] Alk phos 61 40 - 130 Units/L [facility] ALT 20 7 - 45 Units/L [facility] AST 32 10 - 45 Units/L [facility] Blood 07/09/2025 12:4 5 AM BISQUE GRADER 07/09/2025 1:22 AM BISQUE GRADER Najma Pires MD LAB BLOOD ORDERABLES Final Result Performing Organization Address [facility] de Phone Number [facility] Department [place] [address] * (ABNORMAL) Basic metabolic panel (07/09/2025 12:45 AM BISQUE GRADER) Pathologist [facility] Sodium 135 135 - 145 mmol/L Potassium, pl 3.4 3.3 - 4.9 mmol/L [facility] Chloride 92(L) 97 - 110 mmol/L [facility] CO2 29 22 - 32 mmol/L [facility] Anion gap 14 2 - 15 mmol/L [facility] BUN 67(H) 6 - 25 mg/dL [facility] Creatinine 2.11(H) 0.60 - 1.10 mg/dL [facility] Glucose 124 70 - 199 mg/dL [facility] [...] interpretive data was last revised 2022. Calcium 9.8 8.5 - 10.3 mg/dL [facility] Blood 07/09/2025 12:4 5 AM BISQUE GRADER 07/09/2025 1:22 AM BISQUE GRADER us Najma Pires MD LAB BLOOD ORDERABLES Final Result Performing Organization Address [facility] Phone Number [facility] Department [place] [address] * POCT glucose (07/08/2025 10:22 PM BISQUE GRADER) Glucose, POC 147 70 - 199 mg/dL Blood 07/08/2025 10:2 2 PM BISQUE GRADER 07/08/2025 10:22 PM BISQUE GRADER us Magnus Kovacs MD LAB POCT ORDERABLES - D EVICE Final Result Performing Organization Address [facility] Phone Number [facility] Department [place] [address] * (ABNORMAL) POCT glucose (07/08/2025 5:30 PM BISQUE GRADER) Glucose, POC 229(H) 70 - 199 mg/dL Blood 07/08/2025 5:30 PM BISQUE GRADER 07/08/2025 5:30 PM BISQUE GRADER Magnus Kovacs MD LAB POCT ORDERABLES - D EVICE Final Result [facility] [place] [address] * POCT glucose (07/08/2025 12:25 PM BISQUE GRADER) [facility] Signature Glucose, POC 193 70 - 199 mg/dL Blood 07/08/2025 12:2 5 PM BISQUE GRADER 07/08/2025 12:25 PM BISQUE GRADER us Magnus Kovacs MD LAB POCT ORDERABLES - D EVICE Final Result Performing Organization Address [facility] [place] [address] * POCT glucose (07/08/2025 7:59 AM BISQUE GRADER) [facility] Glucose, POC 111 70 - 199 mg/dL Blood 07/08/2025 7:59 AM BISQUE GRADER 07/08/2025 7:59 AM BISQUE GRADER us Cat Steward MD LAB POCT ORDERABLES - DEVICE Final Result Performing Organization Address [facility] Co de Phone Number [facility] Department [place] [address] * POCT glucose (07/08/2025 1:42 AM BISQUE GRADER) [facility] Glucose, POC 145 70 - 199 mg/dL Blood 07/08/2025 1:42 AM BISQUE GRADER 07/08/2025 1:42 AM BISQUE GRADER us Cat Steward MD LAB POCT ORDERABLES - DEVICE Final Result Performing Organization Address [facility] Co de Phone Number [facility] [place] [address] * Immature platelet fraction (07/08/2025 12:31 AM BISQUE GRADER) [facility] IPF 2.8 1.6 - 10.1 % Blood 07/08/2025 12:3 1 AM BISQUE GRADER 07/08/2025 1:51 AM BISQUE GRADER Najma Pires MD LAB BLOOD ORDERABLES Final Result Performing Organization Address City/[facility] Co de Phone Number [facility] [place] [address] * (ABNORMAL) eGFR (07/08/2025 12:31 AM BISQUE GRADER) [facility] eGFR 23(L) >=60 mL/min/1. 73 m2 [...] interpretive data was last reviewed 2021. Blood 07/08/2025 12:3 1 AM BISQUE GRADER 07/08/2025 1:45 AM BISQUE GRADER Najma Pires MD LAB BLOOD ORDERABLES Final Result CHARISSA [facility] Department [place] [employer] [place] [address] * (ABNORMAL) Differential, auto (07/08/2025 12:31 AM BISQUE GRADER) Pathologist [facility] Neutrophil abs 1.46(L) 1.50 - 6.50 K/cumm Imm gran abs 0.01 0.00 - 0.10 K/cumm [facility] Lymphocyte abs 0.67(L) 0.80 - 3.30 K/cumm [facility] Monocyte abs 0.57 0.20 - 0.80 K/cumm [facility] Eosinophil abs 0.30 0.00 - 0.50 K/cumm [facility] Basophil abs 0.02 0.00 - 0.10 K/cumm [facility] Neutrophil pct 48.2 % [facility] Comment: Interpretive Data [...] was last revised on 2017. Lymphocyte pct 22.1 % [facility] Comment: Interpretive Data Percent cell count reference ranges are not reported, since discordance with absolute values may lead to misinterpretation of CBC data. Current Interpretive Data was last revised on 2017. Monocyte pct 18.8 % [facility] Comment: Interpretive Data Percent cell count reference ranges are not reported, since discordance with absolute values may lead to misinterpretation of CBC data. Current Interpretive Data was last revised on 2017. Eosinophil pct 9.9 % [facility] Comment: Interpretive Data Percent cell count reference ranges are not reported, since discordance with absolute values may lead to misinterpretation of CBC data. Current Interpretive Data was last revised on 2017. Basophil pct 0.7 % [facility] Comment: Interpretive Data Percent cell count reference ranges are not reported, since discordance with absolute values may lead to misinterpretation of CBC data. Current Interpretive Data was last revised on 2017. Blood 07/08/2025 12:3 1 AM BISQUE GRADER 07/08/2025 1:45 AM BISQUE GRADER us Najma Pires MD LAB BLOOD ORDERABLES Final Result [facility] Department [place] [address] * (ABNORMAL) CBC with auto differential (07/08/2025 12:31 AM BISQUE GRADER) [facility] WBC 3.03(L) 3.80 - 9.90 K/cumm Hgb 8.4(L) 11.9 - 15.5 g/dL [facility] Hct 26.1(L) 35.6 - 45.5 % [facility] Plt 48(C) 150 - 400 K/cumm [facility] Comment:Platelet count confi rmed by additional testing. Critical platelet count threshold determined by patient location: Outpatient:<50 K/cumm , Inpatient adults:<20 K/cumm , Inpatient pediatric:<25 K/cumm, BMT service:<10 K/cumm MPV 11.0 9.1 - 12.3 fL [facility] RBC 3.11(L) 3.90 - 5.20 M/cumm [facility] MCV 83.9 81.3 - 96.4 fL [facility] MCH 27.0(L) 27.1 - 33.3 pg [facility] MCHC 32.2(L) 32.3 - 35.7 g/dL [facility] RDW CV 15.9(H) 11.1 - 14.9 % [facility] RDW SD 47.8 35.7 - 48.1 fL [facility] NRBC abs 0.00 0.00 - 0.01 K/cumm [facility] Blood 07/08/2025 12:3 1 AM BISQUE GRADER 07/08/2025 1:45 AM BISQUE GRADER us Najma Pires MD LAB BLOOD ORDERABLES Final Result Performing Organization Address City/[facility]/ZIP Co de Phone Number [facility] Department [place] [address] * Phosphorus (07/08/2025 12:31 AM BISQUE GRADER) [facility] Phosphorus, pl 3.7 2.3 - 4.5 mg/dL Blood 07/08/2025 12:3 1 AM BISQUE GRADER 07/08/2025 1:45 AM BISQUE GRADER Najma Pires MD LAB BLOOD ORDERABLES Final Result Performing Organization Address [facility] Phone Number [facility] [place] [address] * (ABNORMAL) Hepatic function panel (07/08/2025 12:31 AM BISQUE GRADER) Bilirubin, total 1.6(H) 0.1 - 1.2 mg/dL Bilirubin, direct 0.6(H) 0.1 - 0.3 mg/dL [facility] Protein, pl 6.5 6.5 - 8.5 g/dL [facility] Albumin 4.1 3.5 - 5.0 g/dL [facility] Alk phos 67 40 - 130 Units/L [facility] ALT 21 7 - 45 Units/L [facility] AST 33 10 - 45 Units/L [facility] Blood 07/08/2025 12:3 1 AM BISQUE GRADER 07/08/2025 1:45 AM BISQUE GRADER Najma Pires MD LAB BLOOD ORDERABLES Final Result Performing Organization Address [facility] Phone Number [facility] [place] [address] * (ABNORMAL) Basic metabolic panel (07/08/2025 12:31 AM BISQUE GRADER) Sodium 133(L) 135 - 145 mmol/L Potassium, pl 3.4 3.3 - 4.9 mmol/L [facility] Chloride 91(L) 97 - 110 mmol/L [facility] CO2 27 22 - 32 mmol/L [facility] Anion gap 15 2 - 15 mmol/L [facility] BUN 68(H) 6 - 25 mg/dL [facility] Creatinine 2.32(H) 0.60 - 1.10 mg/dL [facility] Glucose 147 70 - 199 mg/dL [facility] [...] interpretive data was last revised 2022. Calcium 10.0 8.5 - 10.3 mg/dL [facility] Blood 07/08/2025 12:3 1 AM BISQUE GRADER 07/08/2025 1:45 AM BISQUE GRADER Najma Pires MD LAB BLOOD ORDERABLES Final Result Performing Organization Address City/[facility]/ZIP Co de Phone Number [facility] Department [place] [address] * (ABNORMAL) POCT glucose (07/07/2025 7:31 PM BISQUE GRADER) Glucose, POC 258(H) 70 - 199 mg/dL Blood 07/07/2025 7:31 PM BISQUE GRADER 07/07/2025 7:31 PM BISQUE GRADER Result [facility] Cat Steward MD LAB POCT ORDERABLES - DEVICE Final Result [facility] Department [place] [address] * (ABNORMAL) POCT glucose (07/07/2025 5:28 PM BISQUE GRADER) Glucose, POC 221(H) 70 - 199 mg/dL Blood 07/07/2025 5:28 PM BISQUE GRADER 07/07/2025 5:28 PM BISQUE GRADER Cat Steward MD LAB POCT ORDERABLES - DEVICE Final Result Performing Organization Address [facility] Co de Phone Number [facility] [employer] [place] [address] * POCT glucose (07/07/2025 1:10 PM BISQUE GRADER) Glucose, POC 197 70 - 199 mg/dL Blood 07/07/2025 1:10 PM BISQUE GRADER 07/07/2025 1:10 PM BISQUE GRADER Cat Steward MD LAB POCT ORDERABLES - DEVICE Final Result Performing Organization Address [facility] de Phone Number [facility] [employer] [place] [address] * (ABNORMAL) POCT glucose (07/07/2025 11:09 AM BISQUE GRADER) Glucose, POC 310(H) 70 - 199 mg/dL Blood 07/07/2025 11:0 9 AM BISQUE GRADER 07/07/2025 11:09 AM BISQUE GRADER Cat Steward MD LAB POCT ORDERABLES - DEVICE Final Result Performing Organization Address [facility] de Phone Number [facility] [employer] [place] [address] * (ABNORMAL) Protime-INR (07/07/2025 9:34 AM BISQUE GRADER) PT 17.9(H) 10.2 - 13.5 sec INR 1.60(H) 0.90 - 1.20 [facility] Comment: Interpretive data Oral anticoagulant therapeutic ranges: Venous thromboembolism prophylaxis or treatment: 2.0-3.0 CARDIOLOGY Standard range: 2.0-3.0 High-intensity range: 2.5-3.5 Refer to indication-specific guidelines for appropriate target ranges for prosthetic heart valve replacement. Current interpretive data was last revised on 2019. Blood 07/07/2025 9:34 AM BISQUE GRADER 07/07/2025 10:23 AM BISQUE GRADER Cat Steward MD LAB BLOOD ORDERABLE S Final Result Performing Organization Address [facility] de Phone Number [facility] [employer] [place] [address] * POCT glucose (07/07/2025 8:22 AM BISQUE GRADER) Pathologist [facility] Glucose, POC 135 70 - 199 mg/dL Blood 07/07/2025 8:22 AM BISQUE GRADER 07/07/2025 8:22 AM BISQUE GRADER Cat Steward MD LAB POCT ORDERABLES - DEVICE Final Result Performing Organization Address [facility] Phone Number [facility] [employer] [place] [address] * POCT glucose (07/07/2025 2:06 AM BISQUE GRADER) [facility] Glucose, POC 177 70 - 199 mg/dL Blood 07/07/2025 2:06 AM BISQUE GRADER 07/07/2025 2:06 AM BISQUE GRADER Cat Steward MD LAB POCT ORDERABLES - DEVICE Final Result Performing Organization Address [facility] Phone Number [facility] [employer] [place] [address] * (ABNORMAL) eGFR (07/06/2025 11:48 PM BISQUE GRADER) [facility] eGFR 19(L) >=60 mL/min/1. 73 m2 Comment: Interpretive Data [...] interpretive data was last reviewed 2021. Blood 07/06/2025 11:4 8 PM BISQUE GRADER 07/07/2025 12:45 AM BISQUE GRADER us Najma Pires MD LAB BLOOD ORDERABLES Final Result [facility] Department [place] [address] * (ABNORMAL) Differential, auto (07/06/2025 11:48 PM BISQUE GRADER) Pathologist [facility] Neutrophil abs 1.60 1.50 - 6.50 K/cumm Imm gran abs 0.00 0.00 - 0.10 K/cumm [facility] Lymphocyte abs 0.68(L) 0.80 - 3.30 K/cumm [facility] Monocyte abs 0.56 0.20 - 0.80 K/cumm [facility] Eosinophil abs 0.38 0.00 - 0.50 K/cumm [facility] Basophil abs 0.01 0.00 - 0.10 K/cumm [facility] Neutrophil pct 49.5 % [facility] Comment: Interpretive Data [...] was last revised on 2017. Lymphocyte pct 21.1 % [facility] Comment: Interpretive Data Percent cell count reference ranges are not reported, since discordance with absolute values may lead to misinterpretation of CBC data. Current Interpretive Data was last revised on 2017. Monocyte pct 17.3 % [facility] Comment: Interpretive Data Percent cell count reference ranges are not reported, since discordance with absolute values may lead to misinterpretation of CBC data. Current Interpretive Data was last revised on 2017. Eosinophil pct 11.8 % [facility] Comment: Interpretive Data [...] Data was last revised on 2017. Blood 07/06/2025 11:4 8 PM BISQUE GRADER 07/07/2025 12:45 AM BISQUE GRADER us Najma Pires MD LAB BLOOD ORDERABLES Final Result [facility] Department [place] [address] * (ABNORMAL) CBC with auto differential (07/06/2025 11:48 PM BISQUE GRADER) WBC 3.23(L) 3.80 - 9.90 K/cumm Hgb 8.2(L) 11.9 - 15.5 g/dL [facility] Hct 24.5(L) 35.6 - 45.5 % [facility] Plt 57(L) 150 - 400 K/cumm [facility] MPV 11.4 9.1 - 12.3 fL [facility] RBC 3.00(L) 3.90 - 5.20 M/cumm [facility] MCV 81.7 81.3 - 96.4 fL [facility] MCH 27.3 27.1 - 33.3 pg [facility] MCHC 33.5 32.3 - 35.7 g/dL [facility] RDW CV 15.5(H) 11.1 - 14.9 % [facility] RDW SD 46.4 35.7 - 48.1 fL [facility] NRBC abs 0.00 0.00 - 0.01 K/cumm [facility] Blood 07/06/2025 11:4 8 PM BISQUE GRADER 07/07/2025 12:45 AM BISQUE GRADER Najma Pires MD LAB [place]LOOD [place] [address] * Phosphorus (07/06/2025 11:48 PM BISQUE GRADER) Pathologist [facility] Phosphorus, pl 4.1 2.3 - 4.5 mg/dL Blood 07/06/2025 11:4 8 PM BISQUE GRADER 07/07/2025 12:45 AM BISQUE GRADER Najma Pires MD LAB BLOOD ORDERABLES Final Result Performing Organization Address [facility] Co de Phone Number [facility] [employer] [place] [address] * Magnesium (07/06/2025 11:48 PM BISQUE GRADER) Pathologist [facility] Magnesium 1.9 1.4 - 2.5 mg/dL Blood 07/06/2025 11:4 8 PM BISQUE GRADER 07/07/2025 12:45 AM BISQUE GRADER Najma Pires MD LAB BLOOD ORDERABLES Final Result Performing Organization Address City/[facility] Co de Phone Number [facility] [place] [address] * (ABNORMAL) Hepatic function panel (07/06/2025 11:48 PM BISQUE GRADER) Bilirubin, total 1.7(H) 0.1 - 1.2 mg/dL Bilirubin, direct 0.6(H) 0.1 - 0.3 mg/dL [facility] Protein, pl 6.3(L) 6.5 - 8.5 g/dL [facility] Albumin 4.1 3.5 - 5.0 g/dL [facility] Alk phos 56 40 - 130 Units/L [facility] ALT 16 7 - 45 Units/L [facility] AST 30 10 - 45 Units/L [facility] Blood 07/06/2025 11:4 8 PM BISQUE GRADER 07/07/2025 12:45 AM BISQUE GRADER us Najma Pires MD LAB BLOOD ORDERABLES Final Result [facility] Department [place] [address] * (ABNORMAL) Basic metabolic panel (07/06/2025 11:48 PM BISQUE GRADER) [facility] Sodium 134(L) 135 - 145 mmol/L Potassium, pl 3.1(L) 3.3 - 4.9 mmol/L [facility] Chloride 92(L) 97 - 110 mmol/L [facility] CO2 28 22 - 32 mmol/L [facility] Anion gap 14 2 - 15 mmol/L [facility] BUN 69(H) 6 - 25 mg/dL [facility] Creatinine 2.75(H) 0.60 - 1.10 mg/dL [facility] Glucose 171 70 - 199 mg/dL [facility] [...] interpretive data was last revised 2022. Calcium 9.8 8.5 - 10.3 mg/dL [facility] Blood 07/06/2025 11:4 8 PM BISQUE GRADER 07/07/2025 12:45 AM BISQUE GRADER us Najma Pires MD LAB BLOOD ORDERABLES Final Result Performing Organization Address City/[facility] Co de Phone Number [facility] [employer] [place] [address] * (ABNORMAL) POCT glucose (07/06/2025 9:04 PM BISQUE GRADER) Glucose, POC 221(H) 70 - 199 mg/dL Comment:Glu2: RN/ Notified Glucose comment 1 Glu2: RN/ Notified [facility] Blood 07/06/2025 9:04 PM BISQUE GRADER 07/06/2025 9:04 PM BISQUE GRADER us Cat Steward MD LAB POCT ORDERABLES - DEVICE Final Result Performing Organization Address [facility] [place] [address] * POCT glucose (07/06/2025 4:47 PM BISQUE GRADER) Glucose, POC 140 70 - 199 mg/dL Blood 07/06/2025 4:47 PM BISQUE GRADER 07/06/2025 4:47 PM BISQUE GRADER us Cat Steward MD LAB POCT ORDERABLES - DEVICE Final Result Performing Organization Address [facility] [place] [address] * (ABNORMAL) POCT glucose (07/06/2025 11:38 AM BISQUE GRADER) Glucose, POC 260(H) 70 - 199 mg/dL Comment:Glu2: TYRA/ Notified Glucose comment 1 Glu2: RN/MD Notified [facility] Blood 07/06/2025 11:3 8 AM BISQUE GRADER 07/06/2025 11:38 AM BISQUE GRADER Cat Steward MD LAB POCT ORDERABLES - DEVICE Final Result Performing Organization Address [facility] de Phone Number [facility] [place] [address] * POCT glucose (07/06/2025 8:52 AM BISQUE GRADER) [facility] Glucose, POC 154 70 - 199 mg/dL Blood 07/06/2025 8:52 AM BISQUE GRADER 07/06/2025 8:52 AM BISQUE GRADER us Cat Steward MD LAB POCT ORDERABLES - DEVICE Final Result Performing Organization Address [facility] de Phone Number [facility] [employer] [place] [address] * POCT glucose (07/06/2025 2:31 AM BISQUE GRADER) [facility] Glucose, POC 153 70 - 199 mg/dL Blood 07/06/2025 2:31 AM BISQUE GRADER 07/06/2025 2:31 AM BISQUE GRADER Cat Steward MD LAB POCT ORDERABLES - DEVICE Final Result Performing Organization Address [facility] de Phone Number [facility] [employer] [place] [address] * (ABNORMAL) eGFR (07/05/2025 10:45 PM BISQUE GRADER) [facility] eGFR 16(L) >=60 mL/min/1. 73 m2 Comment: Interpretive Data [...] interpretive data was last reviewed 2021. Blood 07/05/2025 10:4 5 PM BISQUE GRADER 07/06/2025 12:02 AM BISQUE GRADER us Najma Pires MD LAB BLOOD ORDERABLES Final Result [facility] Department [place] [address] * (ABNORMAL) Differential, auto (07/05/2025 10:45 PM BISQUE GRADER) Neutrophil abs 2.17 1.50 - 6.50 K/cumm Imm gran abs 0.01 0.00 - 0.10 K/cumm [facility] Lymphocyte abs 0.68(L) 0.80 - 3.30 K/cumm [facility] Monocyte abs 0.59 0.20 - 0.80 K/cumm [facility] Eosinophil abs 0.40 0.00 - 0.50 K/cumm [facility] Basophil abs 0.02 0.00 - 0.10 K/cumm [facility] Neutrophil pct 56.1 % [facility] Comment: Interpretive Data [...] was last revised on 2017. Lymphocyte pct 17.6 % [facility] Comment: Interpretive Data Percent cell count reference ranges are not reported, since discordance with absolute values may lead to misinterpretation of CBC data. Current Interpretive Data was last revised on 2017. Monocyte pct 15.2 % [facility] Comment: Interpretive Data Percent cell count reference ranges are not reported, since discordance with absolute values may lead to misinterpretation of CBC data. Current Interpretive Data was last revised on 2017. Eosinophil pct 10.3 % [facility] Comment: Interpretive Data [...] Data was last revised on 2017. Blood 07/05/2025 10:4 5 PM BISQUE GRADER 07/06/2025 12:10 AM BISQUE GRADER us Najma Pires MD LAB BLOOD ORDERABLES Final Result [facility] Department [place] [address] * (ABNORMAL) CBC with auto differential (07/05/2025 10:45 PM BISQUE GRADER) WBC 3.87 3.80 - 9.90 K/cumm Hgb 8.8(L) 11.9 - 15.5 g/dL [facility] Hct 25.6(L) 35.6 - 45.5 % [facility] Plt 64(L) 150 - 400 K/cumm [facility] MPV 12.2 9.1 - 12.3 fL [facility] RBC 3.16(L) 3.90 - 5.20 M/cumm [facility] MCV 81.0(L) 81.3 - 96.4 fL [facility] MCH 27.8 27.1 - 33.3 pg [facility] MCHC 34.4 32.3 - 35.7 g/dL [facility] RDW CV 15.4(H) 11.1 - 14.9 % [facility] RDW SD 45.9 35.7 - 48.1 fL [facility] NRBC abs 0.00 0.00 - 0.01 K/cumm [facility] Blood 07/05/2025 10:4 5 PM BISQUE GRADER 07/06/2025 12:10 AM BISQUE GRADER Najma Pires MD LAB BLOOD ORDERABLES Final Result Performing Organization Address [facility] Co de Phone Number [facility] Department [place] [address] * Type and screen (07/05/2025 10:45 PM BISQUE GRADER) ABO Rh A Positive Rosemarie, indirect Negative [facility] Blood 07/05/2025 10:4 5 PM BISQUE GRADER 07/05/2025 11:59 PM BISQUE GRADER Narrative [facility] - 07/06/2025 12:59 AM BISQUE GRADER Has the patient had Daratumumab or Isatuximab in the past 6 months?->Unknown Najma Pires MD LAB BLOOD BANK TEST ORDERAB LES Final Result Performing Organization Address [facility] Co de Phone Number [facility] Department [place] [address] * Phosphorus (07/05/2025 10:45 PM BISQUE GRADER) Phosphorus, pl 4.4 2.3 - 4.5 mg/dL Blood 07/05/2025 10:4 5 PM BISQUE GRADER 07/06/2025 12:02 AM BISQUE GRADER Najma Pires MD LAB BLOOD ORDERABLES Final Result Performing Organization Address [facility]/State/ZIP Co de Phone Number [facility] Department [place] [address] * Magnesium (07/05/2025 10:45 PM BISQUE GRADER) [facility] Magnesium 2.2 1.4 - 2.5 mg/dL Blood 07/05/2025 10:4 5 PM BISQUE GRADER 07/06/2025 12:02 AM BISQUE GRADER Najma Pires MD LAB BLOOD ORDERABLES Final Result [facility] [place] [address] * (ABNORMAL) Hepatic function panel (07/05/2025 10:45 PM BISQUE GRADER) [facility] Bilirubin, total 1.6(H) 0.1 - 1.2 mg/dL Bilirubin, direct 0.6(H) 0.1 - 0.3 mg/dL [facility] Protein, pl 6.5 6.5 - 8.5 g/dL [facility] Albumin 4.2 3.5 - 5.0 g/dL [facility] Alk phos 58 40 - 130 Units/L [facility] ALT 15 7 - 45 Units/L [facility] AST 28 10 - 45 Units/L [facility] Blood 07/05/2025 10:4 5 PM BISQUE GRADER 07/06/2025 12:02 AM BISQUE GRADER Najma Pires MD LAB BLOOD ORDERABLES Final Result [facility] Department [place] [address] * (ABNORMAL) Basic metabolic panel (07/05/2025 10:45 PM BISQUE GRADER) [facility] Sodium 134(L) 135 - 145 mmol/L Potassium, pl 3.3 3.3 - 4.9 mmol/L [facility] Chloride 93(L) 97 - 110 mmol/L [facility] CO2 24 22 - 32 mmol/L [facility] Anion gap 17(H) 2 - 15 mmol/L [facility] BUN 68(H) 6 - 25 mg/dL [facility] Creatinine 3.13(H) 0.60 - 1.10 mg/dL [facility] Glucose 149 70 - 199 mg/dL [facility] [...] interpretive data was last revised 2022. Calcium 10.0 8.5 - 10.3 mg/dL [facility] Blood 07/05/2025 10:4 5 PM BISQUE GRADER 07/06/2025 12:02 AM BISQUE GRADER us Najma Pires MD LAB BLOOD ORDERABLES Final Result Performing Organization Address City/[facility]/ZIP Co de Phone Number [facility] Department [place] [address] * POCT glucose (07/05/2025 8:11 PM BISQUE GRADER) [facility] Glucose, POC 199 70 - 199 mg/dL Blood 07/05/2025 8:11 PM BISQUE GRADER 07/05/2025 8:11 PM BISQUE GRADER Anya Coffey MD LAB POCT ORDERABLES - D DENI Final Result Performing Organization Address [facility]/ZIP Co de Phone Number [facility] Department [place] [address] * (ABNORMAL) POCT glucose (07/05/2025 4:18 PM BISQUE GRADER) Glucose, POC 204(H) 70 - 199 mg/dL Comment:Glu2: RN/MD Notified Glucose comment 1 Glu2: RN/MD Notified [facility] Blood 07/05/2025 4:18 PM BISQUE GRADER 07/05/2025 4:18 PM BISQUE GRADER us Anya Coffey MD LAB POCT ORDERABLES - D EVICE Final Result Performing Organization Address City/[facility] Co de Phone Number [facility] Department [place] [address] * ECG 12 lead (07/05/2025 10:54 AM BISQUE GRADER) Ventricular Rate EKG/Min 108 BPM [facility] Atrial Rate 108 BPM [facility] [place]-Interval (MSEC) 156 ms [facility] QRS-Interval (MSEC) 146 ms [facility] QT-Interval (MSEC) 378 ms [facility] QTc 506 ms [facility] P [place] 90 degrees [facility] R [place] 8 degrees [facility] T [place] -27 degrees [facility] Diagnosis Sinus tachycardia Right bundle branch block T wave abnormality, consider lateral ischemia Abnormal ECG No previous ECGs available Confirmed by Angel Luis Khan MD ([id number]) on 07/06/2025 9:18:23 AM [facility] 07/05/2025 10:5 4 AM BISQUE GRADER 07/06/2025 9:18 AM BISQUE GRADER us Lynne Coronel NP ECG ORDERABLES Fin al Result Performing Organization Address City/[facility]/ZIP Co de Phone Number [facility] * ECG 12 lead (07/05/2025 9:42 AM BISQUE GRADER) Ventricular Rate EKG/Min 121 BPM [facility] QRS-Interval (MSEC) 144 ms [facility] QT-Interval (MSEC) 392 ms [facility] QTc 556 ms [facility] R [place] 18 degrees [facility] T [place] -8 degrees [facility] Diagnosis Atrial fibrillation with rapid ventricular response Right bundle branch block Abnormal ECG No previous ECGs available Confirmed by DANYELLE ORTEGA M.D ([id number]) on 07/06/2025 12:48:11 AM [facility] 07/05/2025 9:42 AM BISQUE GRADER 07/06/2025 12:48 AM BISQUE GRADER Lynne Coronel FRUIT PICKER MACHINE OPERATOR ECG ORDERABLES Fin al Result Performing Organization Address City/[facility]/ZIP Co de Phone Number [facility] * POCT glucose (07/05/2025 7:12 AM BISQUE GRADER) [facility] Signature Glucose, POC 141 70 - 199 mg/dL Blood 07/05/2025 7:12 AM BISQUE GRADER 07/05/2025 7:12 AM BISQUE GRADER Najma Pires MD LAB POCT ORDERABLES - DEVIC E Final Result Performing Organization Address [facility] de Phone Number [facility] Department [place] [address] * Critical Care (07/05/2025 6:28 AM BISQUE GRADER) Narrative Elijah Reich MD - 07/05/2025 6:28 AM BISQUE GRADER Elijha Reich MD 07/05/2025 5:21 PM Critical Care Performed by: Germania Wade NP Authorized by: Germania Wade NP CRITICAL CARE: Team: SICU BLUE Shift: AM Level of Billing: Subsequent Hospital Visit Level 3 My time spent with this patient was 60 minutes: Critical Provider Statement: I have seen and examined the patient on this day of service. I have reviewed and confirmed the history, physical exam, laboratory, and radiographic data as documented in the ICU note. I have reviewed and discussed my treatment plan with the patient's team and other medical/nursing education consultant staff. This time was in addition to and separate from care provided by other practitioners on this day of service. Germania Wade NP IN CLINIC/BEDSIDE ORDERABLES Edited Result - Final * (ABNORMAL) POCT glucose (07/04/2025 8:44 PM BISQUE GRADER) [facility] Glucose, POC 204(H) 70 - 199 mg/dL Comment:Glu2: RN/MD Notified Glucose comment 1 Glu2: RN/MD Notified [facility] Blood 07/04/2025 8:44 PM BISQUE GRADER 07/04/2025 8:44 PM BISQUE GRADER Najma Pires MD LAB POCT ORDERABLES - DEVIC E Final Result [facility] Department [place] [employer] [place] [employer] [place] [address] * Immature platelet fraction (07/04/2025 8:27 PM BISQUE GRADER) [facility] IPF 4.7 1.6 - 10.1 % Blood 07/04/2025 8:27 PM BISQUE GRADER 07/04/2025 10:39 PM BISQUE GRADER Najma Pires MD LAB BLOOD ORDERABLES Final Result [facility] Department [place] [address] * (ABNORMAL) eGFR (07/04/2025 8:27 PM BISQUE GRADER) [facility] eGFR 10(L) >=60 mL/min/1. 73 m2 Comment: [...] interpretive data was last reviewed 2021. Blood 07/04/2025 8:27 PM BISQUE GRADER 07/04/2025 10:35 PM BISQUE GRADER us Najma Pires MD LAB BLOOD ORDERABLES Final Result [facility] Department [place] [address] * (ABNORMAL) Differential, auto (07/04/2025 8:27 PM BISQUE GRADER) Neutrophil abs 2.01 1.50 - 6.50 K/cumm Imm gran abs 0.04 0.00 - 0.10 K/cumm [facility] Lymphocyte abs 0.43(L) 0.80 - 3.30 K/cumm [facility] Monocyte abs 0.50 0.20 - 0.80 K/cumm [facility] Eosinophil abs 0.28 0.00 - 0.50 K/cumm [facility] Basophil abs 0.01 0.00 - 0.10 K/cumm [facility] Neutrophil pct 61.5 % [facility] Comment: Interpretive Data Percent cell count reference ranges are not reported, since discordance with absolute values may lead to misinterpretation of CBC data. Current Interpretive Data was last revised on 2017. Imm gran pct 1.2 % [facility] Comment: Interpretive Data Percent cell count reference ranges are not reported, since discordance with absolute values may lead to misinterpretation of CBC data. Current Interpretive Data was last revised on 2017. Lymphocyte pct 13.1 % [facility] Comment: Interpretive Data Percent cell count reference ranges are not reported, since discordance with absolute values may lead to misinterpretation of CBC data. Current Interpretive Data was last revised on 2017. Monocyte pct 15.3 % [facility] Comment: Interpretive Data Percent cell count reference ranges are not reported, since discordance with absolute values may lead to misinterpretation of CBC data. Current Interpretive Data was last revised on 2017. Eosinophil pct 8.6 % [facility] Comment: Interpretive Data [...] Data was last revised on 2017. Blood 07/04/2025 8:27 PM BISQUE GRADER 07/04/2025 10:36 PM BISQUE GRADER us Najma Pires MD LAB BLOOD ORDERABLES Final Result [facility] Department [place] [address] * (ABNORMAL) CBC with auto differential (07/04/2025 8:27 PM BISQUE GRADER) WBC 3.27(L) 3.80 - 9.90 K/cumm Hgb 8.1(L) 11.9 - 15.5 g/dL [facility] Hct 24.4(L) 35.6 - 45.5 % [facility] Plt 39(C) 150 - 400 K/cumm [facility] Comment:Platelet count confi rmed by additional testing. Critical platelet count threshold determined by patient location: Outpatient:<50 K/cumm , Inpatient adults:<20 K/cumm , Inpatient pediatric:<25 K/cumm, BMT service:<10 K/cumm MPV 13.1(H) 9.1 - 12.3 fL [facility] RBC 2.94(L) 3.90 - 5.20 M/cumm [facility] MCV 83.0 81.3 - 96.4 fL [facility] MCH 27.6 27.1 - 33.3 pg [facility] MCHC 33.2 32.3 - 35.7 g/dL [facility] RDW CV 15.1(H) 11.1 - 14.9 % [facility] RDW SD 45.5 35.7 - 48.1 fL [facility] NRBC abs 0.00 0.00 - 0.01 K/cumm [facility] Blood 07/04/2025 8:27 PM BISQUE GRADER 07/04/2025 10:36 PM BISQUE GRADER Najma Pires MD LAB BLOOD ORDERABLES Final Result Performing Organization Address [facility] Co de Phone Number [facility] Department [place] [address] * (ABNORMAL) Protime-INR (07/04/2025 8:27 PM BISQUE GRADER) PT 16.5(H) 10.2 - 13.5 sec INR 1.47(H) 0.90 - 1.20 [facility] Comment: Interpretive data Oral anticoagulant therapeutic ranges: Venous thromboembolism prophylaxis or treatment: 2.0-3.0 CARDIOLOGY Standard range: 2.0-3.0 High-intensity range: 2.5-3.5 Refer to indication-specific guidelines for appropriate target ranges for prosthetic heart valve replacement. Current interpretive data was last revised on 2019. Blood 07/04/2025 8:27 PM BISQUE GRADER 07/04/2025 10:50 PM BISQUE GRADER Stephanie Low NP LAB BLOOD ORDERABLES F inal Result Performing Organization Address [facility] Co de Phone Number [facility] Department [place] [address] * (ABNORMAL) Phosphorus (07/04/2025 8:27 PM BISQUE GRADER) Phosphorus, pl 4.7(H) 2.3 - 4.5 mg/dL Blood 07/04/2025 8:27 PM BISQUE GRADER 07/04/2025 10:35 PM BISQUE GRADER Najma Pires MD LAB BLOOD ORDERABLES Final Result [facility] [employer] [place] [address] * Magnesium (07/04/2025 8:27 PM BISQUE GRADER) Pathologist [facility] Magnesium 2.4 1.4 - 2.5 mg/dL Blood 07/04/2025 8:27 PM BISQUE GRADER 07/04/2025 10:35 PM BISQUE GRADER Najma Pires MD LAB BLOOD ORDERABLES Final Result Performing Organization Address [facility] Co de Phone Number [facility] [employer] [place] [address] * (ABNORMAL) Hepatic function panel (07/04/2025 8:27 PM BISQUE GRADER) Pathologist [facility] Bilirubin, total 1.5(H) 0.1 - 1.2 mg/dL Bilirubin, direct 0.7(H) 0.1 - 0.3 mg/dL [facility] Protein, pl 6.1(L) 6.5 - 8.5 g/dL [facility] Albumin 4.2 3.5 - 5.0 g/dL [facility] Alk phos 49 40 - 130 Units/L [facility] ALT 11 7 - 45 Units/L [facility] AST 20 10 - 45 Units/L [facility] Blood 07/04/2025 8:27 PM BISQUE GRADER 07/04/2025 10:35 PM BISQUE GRADER Najma Pires MD LAB BLOOD [place] [address] * (ABNORMAL) Basic metabolic panel (07/04/2025 8:27 PM BISQUE GRADER) Pathologist [facility] Sodium 133(L) 135 - 145 mmol/L Potassium, pl 3.3 3.3 - 4.9 mmol/L [facility] Chloride 96(L) 97 - 110 mmol/L [facility] CO2 22 22 - 32 mmol/L [facility] Anion gap 15 2 - 15 mmol/L [facility] BUN 66(H) 6 - 25 mg/dL [facility] Creatinine 4.56(H) 0.60 - 1.10 mg/dL [facility] Glucose 183 70 - 199 mg/dL [facility] [...] 2022. Calcium 9.3 8.5 - 10.3 mg/dL [facility] Blood 07/04/2025 8:27 PM BISQUE GRADER 07/04/2025 10:35 PM BISQUE GRADER us Najma Pires MD LAB BLOOD ORDERABLES Final Result [facility] Department [place] [address] * Critical Care (07/04/2025 6:07 PM BISQUE GRADER) Narrative Kyle Cash, - 07/04/2025 6:07 PM BISQUE GRADER Kyle Cash DO 07/09/2025 3:20 AM Critical Care Performed by: Kathi Torres NP Authorized by: Kathi Torres NP CRITICAL CARE: Team: SICU BLUE Shift: PM Level of Billing: Critical Care My time spent with this patient was 60 minutes: Critical Provider Statement: I have seen and examined the patient on this day of service. I have reviewed and confirmed the history, physical exam, laboratory and radiologic data as documented in the signed ICU note. I have reviewed and discussed my treatment plan with the ICU team and other medical/nursing education consultant staff, making frequent assessments and decisions regarding this patient's complex medical care. Critical Care time was exclusive of time spent performing separately billed procedures, treating other patients, and teaching. This time was in addition to and separate from critical care provided by other practitioners in my group on this day of service. Critical Care was necessary to treat or prevent imminent or life-threatening deterioration of the following conditions: I spent time reviewing and interpreting data from bedside monitors, laboratory results, and imaging, I spent time discussing the management of this critically ill patient with consultants and the medical staff and I spent time documenting in the medical record Kathi Torres FRUIT PICKER MACHINE OPERATOR IN CLINIC/BEDSIDE ORDERA BLES Final Result * POCT glucose (07/04/2025 5:25 PM BISQUE GRADER) Glucose, POC 180 70 - 199 mg/dL Blood 07/04/2025 5:25 PM BISQUE GRADER 07/04/2025 5:25 PM BISQUE GRADER us Najma Pires MD LAB POCT ORDERABLES - DEVIC E Final Result Performing Organization Address [facility] Co de Phone Number [facility] Department [place] [employer] [place] [address] * POCT glucose (07/04/2025 11:07 AM BISQUE GRADER) Glucose, POC 171 70 - 199 mg/dL Blood 07/04/2025 11:0 7 AM BISQUE GRADER 07/04/2025 11:07 AM BISQUE GRADER Najma Pires MD LAB POCT ORDERABLES - DEVIC E Final Result Performing Organization Address [facility] Co de Phone Number [facility] [place] [employer] [place] [address] * POCT glucose (07/04/2025 7:14 AM BISQUE GRADER) Glucose, POC 157 70 - 199 mg/dL Blood 07/04/2025 7:14 AM BISQUE GRADER 07/04/2025 7:14 AM BISQUE GRADER Najma Pires MD LAB POCT ORDERABLES - DEVIC E Final Result Performing Organization Address [facility] Co de Phone Number [facility] Department [place] [address] * Critical Care (07/04/2025 6:31 AM BISQUE GRADER) Narrative Elijah Reich MD - 07/04/2025 6:31 AM BISQUE GRADER Elijah Reich MD 07/04/2025 6:15 PM Critical Care Performed by: Germania Wade NP Authorized by: Germania Wade NP CRITICAL CARE: Team: SICU BLUE Shift: AM Level of Billing: Subsequent Hospital Visit Level 3 My time spent with this patient was 60 minutes: Critical Provider Statement: I have seen and examined the patient on this day of service. I have reviewed and confirmed the history, physical exam, laboratory, and radiographic data as documented in the ICU note. I have reviewed and discussed my treatment plan with the patient's team and other medical/nursing education consultant staff. This time was in addition to and separate from care provided by other practitioners on this day of service. I spent time reviewing and interpreting data from bedside monitors, laboratory results, and imaging, I spent time discussing the management of this critically ill patient with consultants and the medical staff and I spent time documenting in the medical record us Germania Wade FRUIT PICKER MACHINE OPERATOR IN CLINIC/BEDSIDE ORDERABLES Final Result * Immature platelet fraction (07/04/2025 3:55 AM BISQUE GRADER) IPF 4.6 1.6 - 10.1 % Blood 07/04/2025 3:55 AM BISQUE GRADER 07/04/2025 4:09 AM BISQUE GRADER Kathi Torres NP LAB BLOOD ORDERABLES Fin al Result Performing Organization Address [facility] Co de Phone Number [facility] Department [place] [address] * (ABNORMAL) eGFR (07/04/2025 3:55 AM BISQUE GRADER) [facility] eGFR 9(L) >=60 mL/min/1. 73 m2 Comment: [...] interpretive data was last reviewed 2021. Blood 07/04/2025 3:55 AM BISQUE GRADER 07/04/2025 4:05 AM BISQUE GRADER Kathi Torres NP LAB BLOOD ORDERABLES [facility] al Result [facility] Department [place] [address] * (ABNORMAL) CBC without differential (07/04/2025 3:55 AM BISQUE GRADER) [facility] WBC 2.93(L) 3.80 - 9.90 K/cumm Hgb 8.1(L) 11.9 - 15.5 g/dL [facility] Hct 23.6(L) 35.6 - 45.5 % [facility] Plt 35(C) 150 - 400 K/cumm [facility] Comment:Platelet count confi rmed by additional testing. Critical platelet count threshold determined by patient location: Outpatient:<50 K/cumm , Inpatient adults:<20 K/cumm , Inpatient pediatric:<25 K/cumm, BMT service:<10 K/cumm MPV 11.3 9.1 - 12.3 fL [facility] RBC 2.89(L) 3.90 - 5.20 M/cumm [facility] MCV 81.7 81.3 - 96.4 fL [facility] MCH 28.0 27.1 - 33.3 pg [facility] MCHC 34.3 32.3 - 35.7 g/dL [facility] RDW CV 15.2(H) 11.1 - 14.9 % [facility] RDW SD 44.8 35.7 - 48.1 fL [facility] NRBC abs 0.00 0.00 - 0.01 K/cumm [facility] Blood 07/04/2025 3:55 AM BISQUE GRADER 07/04/2025 4:05 AM BISQUE GRADER [facility] LAB BLOOD ORDERABLES [facility] al Result [facility] Department [place] [address] * (ABNORMAL) Basic metabolic panel (07/04/2025 3:55 AM BISQUE GRADER) Sodium 131(L) 135 - 145 mmol/L Potassium, pl 3.7 3.3 - 4.9 mmol/L [facility] Chloride 96(L) 97 - 110 mmol/L [facility] CO2 21(L) 22 - 32 mmol/L [facility] Anion gap 14 2 - 15 mmol/L [facility] BUN 60(H) 6 - 25 mg/dL [facility] Creatinine 5.03(H) 0.60 - 1.10 mg/dL [facility] Glucose 146 70 - 199 mg/dL [facility] [...] 2022. Calcium 9.2 8.5 - 10.3 mg/dL [facility] Blood 07/04/2025 3:55 AM BISQUE GRADER 07/04/2025 4:05 AM BISQUE GRADER [facility] FRUIT PICKER MACHINE OPERATOR LAB BLOOD ORDERABLES Fin al Result Performing Organization Address [facility]/ZIP Co de Phone Number [facility] [employer] [place] [address] * POCT glucose (07/04/2025 2:05 AM BISQUE GRADER) [facility] Glucose, POC 165 70 - 199 mg/dL Blood 07/04/2025 2:05 AM BISQUE GRADER 07/04/2025 2:05 AM BISQUE GRADER Najma Pires MD LAB POCT ORDERABLES - DEVIC E Final Result Performing Organization Address [facility] Co de Phone Number [facility] [employer] [place] [address] * Transfuse RBC (07/03/2025 11:43 PM BISQUE GRADER) Blood [facility] FRUIT PICKER MACHINE OPERATOR BLOOD TRANSFUSION ORDERA BLES Final Result Performing Organization Address [facility] Co de Phone Number [facility] [employer] [place] [address] * Prepare RBC: 1 Units (07/03/2025 8:38 PM BISQUE GRADER) Product code [id number] Unit Number [id number] [facility] Product Blood Type APOS [facility] Dispense Status PRESUMED TRANSFUSED [facility] Blood 07/03/2025 8:38 PM BISQUE GRADER 07/03/2025 8:39 PM BISQUE GRADER Narrative [facility] - 07/04/2025 4:01 PM BISQUE GRADER Are special requirements needed? (All products are leukoreduced and CMV- safe)- >No Date required:-[id number] LRRBC # of [id number] Reasons:-Hgb <7 g/dL} [facility] BLOOD BANK PRODUCT ORDER RAVEN Final Result Performing Organization Address City/[facility] Co de Phone Number [facility] [place] [address] * (ABNORMAL) POCT glucose (07/03/2025 8:34 PM BISQUE GRADER) [facility] Glucose, POC 250(H) 70 - 199 mg/dL Blood 07/03/2025 8:34 PM BISQUE GRADER 07/03/2025 8:34 PM BISQUE GRADER Najma Pires MD LAB POCT ORDERABLES - DEVIC E Final Result Performing Organization Address [facility] Co de Phone Number [facility] Department [place] [address] * Immature platelet fraction (07/03/2025 7:58 PM BISQUE GRADER) [facility] IPF 3.7 1.6 - 10.1 % Blood 07/03/2025 7:58 PM BISQUE GRADER 07/03/2025 8:25 PM BISQUE GRADER Najma Pires MD LAB BLOOD ORDERABLES Final Result Performing Organization Address [facility] Co de Phone Number [facility] [place] [address] * (ABNORMAL) eGFR (07/03/2025 7:58 PM BISQUE GRADER) [facility] eGFR 8(L) >=60 mL/min/1. 73 m2 Comment: Interpretive Data [...] interpretive data was last reviewed 2021. Blood 07/03/2025 7:58 PM BISQUE GRADER 07/03/2025 8:21 PM BISQUE GRADER us Najma Pires MD LAB BLOOD ORDERABLES Final Result [facility] Department [place] [address] * (ABNORMAL) Differential, auto (07/03/2025 7:58 PM BISQUE GRADER) Neutrophil abs 1.51 1.50 - 6.50 K/cumm Imm gran abs 0.01 0.00 - 0.10 K/cumm [facility] Lymphocyte abs 0.42(L) 0.80 - 3.30 K/cumm [facility] Monocyte abs 0.27 0.20 - 0.80 K/cumm [facility] Eosinophil abs 0.20 0.00 - 0.50 K/cumm [facility] Basophil abs 0.00 0.00 - 0.10 K/cumm [facility] Neutrophil pct 62.7 % [facility] Comment: Interpretive Data [...] was last revised on 2017. Lymphocyte pct 17.4 % [facility] Comment: Interpretive Data Percent cell count reference ranges are not reported, since discordance with absolute values may lead to misinterpretation of CBC data. Current Interpretive Data was last revised on 2017. Monocyte pct 11.2 % [facility] Comment: Interpretive Data Percent cell count reference ranges are not reported, since discordance with absolute values may lead to misinterpretation of CBC data. Current Interpretive Data was last revised on 2017. Eosinophil pct 8.3 % [facility] Comment: Interpretive Data Percent cell count reference ranges are not reported, since discordance with absolute values may lead to misinterpretation of CBC data. Current Interpretive Data was last revised on 2017. Basophil pct 0.0 % [facility] Comment: Interpretive Data Percent cell count reference ranges are not reported, since discordance with absolute values may lead to misinterpretation of CBC data. Current Interpretive Data was last revised on 2017. Blood 07/03/2025 7:58 PM BISQUE GRADER 07/03/2025 8:21 PM BISQUE GRADER us Najma Pires MD LAB BLOOD ORDERABLES Final Result [facility] Department [place] [address] * (ABNORMAL) CBC with auto differential (07/03/2025 7:58 PM BISQUE GRADER) WBC 2.50(L) 3.80 - 9.90 K/cumm Hgb 6.9(L) 11.9 - 15.5 g/dL [facility] Hct 20.5(L) 35.6 - 45.5 % [facility] Plt 33(C) 150 - 400 K/cumm [facility] Comment:Platelet count confi rmed by additional testing. Critical platelet count threshold determined by patient location: Outpatient:<50 K/cumm , Inpatient adults:<20 K/cumm , Inpatient pediatric:<25 K/cumm, BMT service:<10 K/cumm MPV 11.7 9.1 - 12.3 fL [facility] RBC 2.51(L) 3.90 - 5.20 M/cumm [facility] MCV 81.7 81.3 - 96.4 fL [facility] MCH 27.5 27.1 - 33.3 pg [facility] MCHC 33.7 32.3 - 35.7 g/dL [facility] RDW CV 15.2(H) 11.1 - 14.9 % [facility] RDW SD 46.4 35.7 - 48.1 fL [facility] NRBC abs 0.00 0.00 - 0.01 K/cumm [facility] Blood 07/03/2025 7:58 PM BISQUE GRADER 07/03/2025 8:21 PM BISQUE GRADER us Najma Pires MD LAB BLOOD ORDERABLES Final Result [facility] Department [place] [address] * (ABNORMAL) aPTT (07/03/2025 7:58 PM BISQUE GRADER) [facility] aPTT 74(H) 26 - 38 sec Comment: Interpretive Data Heparin therapeutic range: 66.0 - 100.0 seconds. Range based on correlation with therapeutic heparin activity range of 0.3 - 0.7 Units/mL. Blood 07/03/2025 7:58 PM BISQUE GRADER 07/03/2025 8:08 PM BISQUE GRADER Narrative [facility] - 07/03/2025 8:39 PM BISQUE GRADER STAT PTT timing: - Draw 6 hours after heparin infusion initiation - Draw 6 hours after every dose change until 2 consecutive PTTs are therapeutic - Once 2 consecutive PTTs are therapeutic, obtain with daily labs until infusion is discontinued - - Restart every 6 hour lab draws and follow instructions accordingly if PTT is outside of therapeutic range Do not draw lab from IV line that is actively infusing heparin. Use the opposite arm. If arm with actively infusing heparin must be used, pause the infusion for at least 2 minutes, and draw specimen below the IV site. For patients with a central venous catheter (CVC), lab must be drawn peripherally (not from CVC). Stephanie Low NP LAB BLOOD ORDERABLES F inal Result Performing Organization Address [facility] Co de Phone Number [facility] [place] [address] * (ABNORMAL) Protime-INR (07/03/2025 7:58 PM BISQUE GRADER) PT 18.5(H) 10.2 - 13.5 sec INR 1.65(H) 0.90 - 1.20 [facility] Comment: Interpretive data Oral anticoagulant therapeutic ranges: Venous thromboembolism prophylaxis or treatment: 2.0-3.0 CARDIOLOGY Standard range: 2.0-3.0 High-intensity range: 2.5-3.5 Refer to indication-specific guidelines for appropriate target ranges for prosthetic heart valve replacement. Current interpretive data was last revised on 2019. Blood 07/03/2025 7:58 PM BISQUE GRADER 07/03/2025 8:08 PM BISQUE GRADER Najma Pires MD LAB BLOOD ORDERABLES Final Result Performing Organization Address [facility] de Phone Number [facility] Department [place] [address] * Phosphorus (07/03/2025 7:58 PM BISQUE GRADER) Phosphorus, pl 4.3 2.3 - 4.5 mg/dL Blood 07/03/2025 7:58 PM BISQUE GRADER 07/03/2025 8:21 PM BISQUE GRADER Najma Pires MD LAB BLOOD ORDERABLES Final Result Performing Organization Address [facility] de Phone Number [facility] Department [place] [address] * Magnesium (07/03/2025 7:58 PM BISQUE GRADER) Pathologist [facility] Magnesium 2.5 1.4 - 2.5 mg/dL Blood 07/03/2025 7:58 PM BISQUE GRADER 07/03/2025 8:21 PM BISQUE GRADER Najma Pires MD LAB BLOOD ORDERABLES Final Result [facility] [place] [address] * (ABNORMAL) Ammonia (07/03/2025 7:58 PM BISQUE GRADER) Pathologist [facility] Ammonia 52(H) <=50 mcmol/L Blood 07/03/2025 7:58 PM BISQUE GRADER 07/03/2025 8:08 PM BISQUE GRADER Result [facility] Kathi Torres NP LAB BLOOD ORDERABLES Fin al Result Performing Organization Address [facility]/ZIP Co de Phone Number [facility] [place] [address] * (ABNORMAL) Hepatic function panel (07/03/2025 7:58 PM BISQUE GRADER) Pathologist [facility] Bilirubin, total 1.2 0.1 - 1.2 mg/dL Bilirubin, direct 0.7(H) 0.1 - 0.3 mg/dL [facility] Protein, pl 6.0(L) 6.5 - 8.5 g/dL [facility] [facility] Albumin 4.4 3.5 - 5.0 g/dL [facility] Alk phos 40 40 - 130 Units/L [facility] ALT 12 7 - 45 Units/L [facility] AST 19 10 - 45 Units/L [facility] Blood 07/03/2025 7:5 8 PM BISQUE GRADER 07/03/2025 8:21 PM BISQUE GRADER Result [facility] Najma Pires MD LAB BLOOD ORDERABLES Final Result [facility] Department [place] [address] * (ABNORMAL) Basic metabolic panel (07/03/2025 7:58 PM BISQUE GRADER) Sodium 129(L) 135 - 145 mmol/L Potassium, pl 3.7 3.3 - 4.9 mmol/L [facility] Chloride 92(L) 97 - 110 mmol/L [facility] CO2 20(L) 22 - 32 mmol/L [facility] Anion gap 17(H) 2 - 15 mmol/L [facility] BUN 62(H) 6 - 25 mg/dL [facility] Creatinine 5.60(H) 0.60 - 1.10 mg/dL [facility] Glucose 195 70 - 199 mg/dL [facility] [...] 2022. Calcium 8.6 8.5 - 10.3 mg/dL [facility] Blood 07/03/2025 7:58 PM BISQUE GRADER 07/03/2025 8:21 PM BISQUE GRADER Najma Pires MD LAB BLOOD ORDERABLES Final Result Performing Organization Address City/[facility]/ZIP Co de Phone Number [facility] Department [place] [address] * Critical Care (07/03/2025 6:42 PM BISQUE GRADER) Narrative Kyle Cash DO - 07/03/2025 6:42 PM BISQUE GRADER Klye Cash DO 07/09/2025 3:20 AM Critical Care Performed by: Kathi Torres NP Authorized by: Kathi Torres NP CRITICAL CARE: Team: SICU BLUE Shift: PM Level of Billing: Critical Care My time spent with this patient was 150 minutes: Critical Provider Statement: I have seen and examined the patient on this day of service. I have reviewed and confirmed the history, physical exam, laboratory and radiologic data as documented in the signed ICU note. I have reviewed and discussed my treatment plan with the ICU team and other medical/nursing education consultant staff, making frequent assessments and decisions regarding this patient's complex medical care. Critical Care time was exclusive of time spent performing separately billed procedures, treating other patients, and teaching. This time was in addition to and separate from critical care provided by other practitioners in my group on this day of service. Critical Care was necessary to treat or prevent imminent or life-threatening deterioration of the following conditions: I spent time reviewing and interpreting data from bedside monitors, laboratory results, and imaging, I spent time discussing the management of this critically ill patient with consultants and the medical staff and I spent time documenting in the medical record Kathi Torres NP IN CLINIC/BEDSIDE ORDERA BLES Final Result * XR Chest 1 View (07/03/2025 5:25 PM BISQUE GRADER) Anatomical Region Laterality Modality Body, Chest N/A Computed Radiogr aphy 07/04/2025 1:20 AM BISQUE GRADER Impressions 07/04/2025 1:20 AM BISQUE GRADER The lung volumes are small with mild bibasilar atelectasis. There is mild pulmonary edema. There is no pleural effusion or pneumothorax. The cardiomediastinal silhouette is unchanged. Electronically signed by: Taiwo Martinez M.D. Narrative 07/04/2025 1:20 AM BISQUE GRADER EXAMINATION: XR CHEST 1 VIEW COMPARISON: 06/29/2025 11:26 PM Procedure Note Taiwo Martinez MD PhD - 07/04/2025 EXAMINATION: XR CHEST 1 VIEW COMPARISON: 06/29/2025 11:26 PM IMPRESSION: The lung volumes are small with mild bibasilar atelectasis. There is mild pulmonary edema. There is no pleural effusion or pneumothorax. The cardiomediastinal silhouette is unchanged. Electronically signed by: Taiwo Martinez M.D. us Stephaniesharmaine Low FRUIT PICKER MACHINE OPERATOR IMG XR PROCEDURES Ju l Result * Critical Care (07/03/2025 3:38 PM BISQUE GRADER) Narrative Elijah Reich MD - 07/03/2025 3:38 PM BISQUE GRADER Elijah Reich MD 07/03/2025 3:41 PM Critical Care Performed by: Elijah Reich MD Authorized by: Elijah Reich MD CRITICAL CARE: Team: SICU BLUE Shift: AM Level of Billing: Critical Care My time spent with this patient was 35 minutes: Critical Provider Statement: I have seen and examined the patient on this day of service. I have reviewed and confirmed the history, physical exam, laboratory and radiologic data as documented in the signed ICU note. I have reviewed and discussed my treatment plan with the ICU team and other medical/nursing education consultant staff, making frequent assessments and decisions regarding this patient's complex medical care. Critical Care time was exclusive of time spent performing separately billed procedures, treating other patients, and teaching. This time was in addition to and separate from critical care provided by other practitioners in my group on this day of service. Critical Care was necessary to treat or prevent imminent or life-threatening deterioration of the following conditions: Undifferentiated shock Acute electrolyte derangement and Acute kidney injury Elijah Reich MD IN CLINIC/BEDSIDE O RDERABLES Final Result * POCT glucose (07/03/2025 3:04 PM BISQUE GRADER) Glucose, POC 186 70 - 199 mg/dL Blood 07/03/2025 3:04 PM BISQUE GRADER 07/03/2025 3:04 PM BISQUE GRADER Najma Pires MD LAB POCT ORDERABLES - DEVIC E Final Result [facility] Department [place] [address] * (ABNORMAL) aPTT (07/03/2025 2:05 PM BISQUE GRADER) aPTT 79(H) 26 - 38 sec Comment: Interpretive Data Heparin therapeutic range: 66.0 - 100.0 seconds. Range based on correlation with therapeutic heparin activity range of 0.3 - 0.7 Units/mL. Blood 07/03/2025 2:05 PM BISQUE GRADER 07/03/2025 2:25 PM BISQUE GRADER Narrative [facility] - 07/03/2025 2:50 PM BISQUE GRADER STAT PTT timing: - Draw 6 hours after heparin infusion initiation - Draw 6 hours after every dose change until 2 consecutive PTTs are therapeutic - Once 2 consecutive PTTs are therapeutic, obtain with daily labs until infusion is discontinued - - Restart every 6 hour lab draws and follow instructions accordingly if PTT is outside of therapeutic range Do not draw lab from IV line that is actively infusing heparin. Use the opposite arm. If arm with actively infusing heparin must be used, pause the infusion for at least 2 minutes, and draw specimen below the IV site. For patients with a central venous catheter (CVC), lab must be drawn peripherally (not from CVC). us Stephanie Low NP LAB BLOOD ORDERABLES F inal Result Performing Organization Address [facility] Co de Phone Number [facility] Department [place] [address] * (ABNORMAL) POCT glucose (07/03/2025 11:44 AM BISQUE GRADER) Pathologist [facility] Glucose, POC 212(H) 70 - 199 mg/dL Comment:Glu2: RN/MD Notified Glucose comment 1 Glu2: RN/MD Notified [facility] Blood 07/03/2025 11:4 4 AM BISQUE GRADER 07/03/2025 11:44 AM BISQUE GRADER Najma Pires MD LAB POCT ORDERABLES - DEVIC E Final Result Performing Organization Address [facility]/ZIP Co de Phone Number [facility] Department [place] [address] * (ABNORMAL) eGFR (07/03/2025 10:47 AM BISQUE GRADER) eGFR 9(L) >=60 mL/min/1. 73 m2 Comment: [...] interpretive data was last reviewed 2021. Blood 07/03/2025 10:4 7 AM BISQUE GRADER 07/03/2025 11:01 AM BISQUE GRADER Stephanie Low NP LAB BLOOD ORDERABLES F inal Result [facility] Department [place] [address] * (ABNORMAL) Basic metabolic panel (07/03/2025 10:47 AM BISQUE GRADER) Sodium 129(L) 135 - 145 mmol/L Potassium, pl 3.8 3.3 - 4.9 mmol/L [facility] Chloride 93(L) 97 - 110 mmol/L [facility] CO2 20(L) 22 - 32 mmol/L [facility] Anion gap 16(H) 2 - 15 mmol/L [facility] BUN 61(H) 6 - 25 mg/dL [facility] Creatinine 5.19(H) 0.60 - 1.10 mg/dL [facility] Glucose 198 70 - 199 mg/dL [facility] [...] 2022. Calcium 8.7 8.5 - 10.3 mg/dL [facility] Blood 07/03/2025 10:4 7 AM BISQUE GRADER 07/03/2025 11:01 AM BISQUE GRADER Stephanie Low NP LAB BLOOD ORDERABLES F inal Result [facility] Department [place] [address] * Critical Care (07/03/2025 7:28 AM BISQUE GRADER) Narrative Elijah Reich MD - 07/03/2025 7:28 AM BISQUE GRADER Elijah Reich MD 07/03/2025 5:15 PM Critical Care Performed by: Germania Wade NP Authorized by: Germania Wade NP CRITICAL CARE: Team: SICU BLUE Shift: AM Level of Billing: Critical Care My time spent with this patient was 90 minutes: Critical Provider Statement: I have seen and examined the patient on this day of service. I have reviewed and confirmed the history, physical exam, laboratory and radiologic data as documented in the signed ICU note. I have reviewed and discussed my treatment plan with the ICU team and other medical/nursing education consultant staff, making frequent assessments and decisions regarding this patient's complex medical care. Critical Care time was exclusive of time spent performing separately billed procedures, treating other patients, and teaching. This time was in addition to and separate from critical care provided by other practitioners in my group on this day of service. Critical Care was necessary to treat or prevent imminent or life-threatening deterioration of the following conditions: I spent time reviewing and interpreting data from bedside monitors, laboratory results, and imaging, I spent time discussing the management of this critically ill patient with consultants and the medical staff and I spent time documenting in the medical record Germania Wade NP IN CLINIC/BEDSIDE ORDERABLES Final Result * (ABNORMAL) aPTT (07/03/2025 7:17 AM BISQUE GRADER) aPTT 64(H) 26 - 38 sec Comment: Interpretive Data Heparin therapeutic range: 66.0 - 100.0 seconds. Range based on correlation with therapeutic heparin activity range of 0.3 - 0.7 Units/mL. Blood 07/03/2025 7:17 AM BISQUE GRADER 07/03/2025 7:25 AM BISQUE GRADER Narrative CHARISSA [facility] - 07/03/2025 8:01 AM BISQUE GRADER STAT PTT timing: - Draw 6 hours after heparin infusion initiation - Draw 6 hours after every dose change until 2 consecutive PTTs are therapeutic - Once 2 consecutive PTTs are therapeutic, obtain with daily labs until infusion is discontinued - - Restart every 6 hour lab draws and follow instructions accordingly if PTT is outside of therapeutic range Do not draw lab from IV line that is actively infusing heparin. Use the opposite arm. If arm with actively infusing heparin must be used, pause the infusion for at least 2 minutes, and draw specimen below the IV site. For patients with a central venous catheter (CVC), lab must be drawn peripherally (not from CVC). us Stephanie Low FRUIT PICKER MACHINE OPERATOR LAB BLOOD ORDERABLES F inal Result [facility] Department [place] [address] * (ABNORMAL) Protime-INR (07/03/2025 7:17 AM BISQUE GRADER) PT 18.0(H) 10.2 - 13.5 sec INR 1.61(H) 0.90 - 1.20 [facility] Comment: Interpretive data Oral anticoagulant therapeutic ranges: Venous thromboembolism prophylaxis or treatment: 2.0-3.0 CARDIOLOGY Standard range: 2.0-3.0 High-intensity range: 2.5-3.5 Refer to indication-specific guidelines for appropriate target ranges for prosthetic heart valve replacement. Current interpretive data was last revised on 2019. Blood 07/03/2025 7:17 AM BISQUE GRADER 07/03/2025 7:25 AM BISQUE GRADER us Germania Wade FRUIT PICKER MACHINE OPERATOR LAB BLOOD ORDERABL ES Final Result Performing Organization Address [facility]/ZIP Co de Phone Number CHARISSA [facility] Department [place] [address] * (ABNORMAL) eGFR (07/03/2025 5:15 AM BISQUE GRADER) eGFR 8(L) >=60 mL/min/1. 73 m2 Comment: Interpretive Data [...] interpretive data was last reviewed 2021. Blood 07/03/2025 5:15 AM BISQUE GRADER 07/03/2025 5:23 AM BISQUE GRADER us Kathi Torres FRUIT PICKER MACHINE OPERATOR LAB BLOOD ORDERABLES Fin al Result CHARISSA [facility] Department [place] [address] * (ABNORMAL) Basic metabolic panel (07/03/2025 5:15 AM BISQUE GRADER) Sodium 129(L) 135 - 145 mmol/L Potassium, pl 3.7 3.3 - 4.9 mmol/L [facility] Chloride 94(L) 97 - 110 mmol/L [facility] CO2 21(L) 22 - 32 mmol/L [facility] Anion gap 14 2 - 15 mmol/L [facility] BUN 55(H) 6 - 25 mg/dL [facility] Creatinine 5.35(H) 0.60 - 1.10 mg/dL [facility] Glucose 179 70 - 199 mg/dL [facility] [...] 2022. Calcium 8.9 8.5 - 10.3 mg/dL [facility] Blood 07/03/2025 5:15 AM BISQUE GRADER 07/03/2025 5:23 AM BISQUE GRADER [facility] LAB BLOOD ORDERABLES Fin al Result CHARISSA [facility] Department [place] [address] * (ABNORMAL) POCT glucose (07/03/2025 2:15 AM BISQUE GRADER) Glucose, POC 231(H) 70 - 199 mg/dL Blood 07/03/2025 2:15 AM BISQUE GRADER 07/03/2025 2:15 AM BISQUE GRADER us Najma Pires MD LAB POCT ORDERABLES - DEVIC E Final Result [facility]SA [facility] Department [place] [address] * US Kidney Complete (07/03/2025 2:14 AM BISQUE GRADER) Anatomical Region Laterality Modality Kidney N/A Ultrasound 07/03/2025 7:38 AM BISQUE GRADER Impressions 07/03/2025 7:58 AM BISQUE GRADER Normal kidneys within the limitations of the examination. No hydronephrosis. Stewart catheter. Dictated by: Tish Martin M.D. The radiology attending physician has personally reviewed this study, and had reviewed and/or edited this written report and agrees with it. Electronically signed by: Adilson Negro M.D. Narrative 07/03/2025 7:58 AM BISQUE GRADER EXAMINATION: COMPLETE RENAL SONOGRAM HISTORY: 64-year-old female presenting with acute kidney injury and elevated creatinine. COMPARISON: MR 03/24/2005 FINDINGS: Kidneys: Limited evaluation of the left kidney due to patient positioning. The echogenicity of both kidneys is normal. The right kidney is normal in size and measures 12.2 cm in length. The left kidney appears normal in size in the measures approximately 12.1 cm. There is no hydronephrosis in either kidney. There are no renal calculi visualized. Bladder: The urinary bladder is decompressed by a Stewart catheter. Procedure Note Adilson Negro MD - 07/03/2025 EXAMINATION: COMPLETE RENAL SONOGRAM HISTORY: 64-year-old female presenting with acute kidney injury and elevated creatinine. COMPARISON: MR 03/24/2005 FINDINGS: Kidneys: Limited evaluation of the left kidney due to patient positioning. The echogenicity of both kidneys is normal. The right kidney is normal in size and measures 12.2 cm in length. The left kidney appears normal in size in the measures approximately 12.1 cm. There is no hydronephrosis in either kidney. There are no renal calculi visualized. Bladder: The urinary bladder is decompressed by a Stewart catheter. IMPRESSION: Normal kidneys within the limitations of the examination. No hydronephrosis. Stewart catheter. Dictated by: Tish Martin M.D. The radiology attending physician has personally reviewed this study, and had reviewed and/or edited this written report and agrees with it. Electronically signed by: Adilson Negro M.D. Kathi Torres FRUIT PICKER MACHINE OPERATOR IMG US PROCEDURES Final Result * (ABNORMAL) aPTT (07/03/2025 12:50 AM BISQUE GRADER) aPTT 68(H) 26 - 38 sec Comment: Interpretive Data Heparin therapeutic range: 66.0 - 100.0 seconds. Range based on correlation with therapeutic heparin activity range of 0.3 - 0.7 Units/mL. Blood 07/03/2025 12:5 0 AM BISQUE GRADER 07/03/2025 12:58 AM BISQUE GRADER Narrative CHARISSA [facility] - 07/03/2025 1:20 AM BISQUE GRADER STAT PTT timing: - Draw 6 hours after heparin infusion initiation - Draw 6 hours after every dose change until 2 consecutive PTTs are therapeutic - Once 2 consecutive PTTs are therapeutic, obtain with daily labs until infusion is discontinued - - Restart every 6 hour lab draws and follow instructions accordingly if PTT is outside of therapeutic range Do not draw lab from IV line that is actively infusing heparin. Use the opposite arm. If arm with actively infusing heparin must be used, pause the infusion for at least 2 minutes, and draw specimen below the IV site. For patients with a central venous catheter (CVC), lab must be drawn peripherally (not from CVC). Stephanie Low FRUIT PICKER MACHINE OPERATOR LAB BLOOD ORDERABLES F inal Result CHARISSA [facility] Department [place] [address] * (ABNORMAL) POCT glucose (07/02/2025 9:55 PM BISQUE GRADER) Pathologist [facility] Glucose, POC 248(H) 70 - 199 mg/dL Blood 07/02/2025 9:55 PM BISQUE GRADER 07/02/2025 9:55 PM BISQUE GRADER Najma Pires MD LAB POCT ORDERABLES - DEVIC E Final Result Performing Organization Address City/[facility] Co de Phone Number CHARISSA [facility] Department [place] [address] * (ABNORMAL) eGFR (07/02/2025 9:44 PM BISQUE GRADER) eGFR 9(L) >=60 mL/min/1. 73 m2 Comment: [...] interpretive data was last reviewed 2021. Blood 07/02/2025 9:44 PM BISQUE GRADER 07/02/2025 10:31 PM BISQUE GRADER Najma Pires MD LAB BLOOD ORDERABLES Final Result Performing Organization Address City/[facility]/ZIP Co de Phone Number CHARISSA [facility] Department [place] [address] * (ABNORMAL) Differential, auto (07/02/2025 9:44 PM BISQUE GRADER) Neutrophil abs 2.58 1.50 - 6.50 K/cumm Imm gran abs 0.01 0.00 - 0.10 K/cumm [facility] Lymphocyte abs 0.54(L) 0.80 - 3.30 K/cumm [facility] Monocyte abs 0.54 0.20 - 0.80 K/cumm [facility] Eosinophil abs 0.34 0.00 - 0.50 K/cumm [facility] Basophil abs 0.01 0.00 - 0.10 K/cumm [facility] Neutrophil pct 64.3 % [facility] Comment: Interpretive Data [...] was last revised on 2017. Lymphocyte pct 13.4 % [facility] Comment: Interpretive Data Percent cell count reference ranges are not reported, since discordance with absolute values may lead to misinterpretation of CBC data. Current Interpretive Data was last revised on 2017. Monocyte pct 13.4 % [facility] Comment: Interpretive Data Percent cell count reference ranges are not reported, since discordance with absolute values may lead to misinterpretation of CBC data. Current Interpretive Data was last revised on 2017. Eosinophil pct 8.5 % [facility] Comment: Interpretive Data Percent cell count reference ranges are not reported, since discordance with absolute values may lead to misinterpretation of CBC data. Current Interpretive Data was last revised on 2017. Basophil pct 0.2 % [facility] Comment: Interpretive Data Percent cell count reference ranges are not reported, since discordance with absolute values may lead to misinterpretation of CBC data. Current Interpretive Data was last revised on 2017. Blood 07/02/2025 9:44 PM BISQUE GRADER 07/02/2025 10:32 PM BISQUE GRADER us Najma Pires MD LAB BLOOD ORDERABLES Final Result [facility] Department [place] [address] * (ABNORMAL) CBC with auto differential (07/02/2025 9:44 PM BISQUE GRADER) Pathologist [facility] WBC 4.02 3.80 - 9.90 K/cumm Hgb 8.0(L) 11.9 - 15.5 g/dL [facility] Hct 23.5(L) 35.6 - 45.5 % [facility] Plt 57(L) 150 - 400 K/cumm [facility] MPV 12.2 9.1 - 12.3 fL [facility] RBC 2.89(L) 3.90 - 5.20 M/cumm [facility] MCV 81.3 81.3 - 96.4 fL [facility] MCH 27.7 27.1 - 33.3 pg [facility] MCHC 34.0 32.3 - 35.7 g/dL [facility] RDW CV 15.2(H) 11.1 - 14.9 % [facility] RDW SD 44.9 35.7 - 48.1 fL [facility] NRBC abs 0.00 0.00 - 0.01 K/cumm [facility] Blood 07/02/2025 9:44 PM BISQUE GRADER 07/02/2025 10:32 PM BISQUE GRADER Najma Pires MD LAB BLOOD ORDERABLES Final Result [facility] Department [place] [address] * Type and screen (07/02/2025 9:44 PM BISQUE GRADER) Pathologist [facility] ABO Rh A Positive Rosemarie, indirect Negative [facility] Blood 07/02/2025 9:44 PM BISQUE GRADER 07/02/2025 10:39 PM BISQUE GRADER Narrative [facility] - 07/02/2025 11:44 PM BISQUE GRADER Has the patient had Daratumumab or Isatuximab in the past 6 months?->Unknown us Najma Pires MD LAB BLOOD BANK TEST ORDERAB LES Final Result Performing Organization Address [facility] [place] [address] * Phosphorus (07/02/2025 9:44 PM BISQUE GRADER) [facility] Phosphorus, pl 2.9 2.3 - 4.5 mg/dL Blood 07/02/2025 9:44 PM BISQUE GRADER 07/02/2025 10:31 PM BISQUE GRADER Najma Pires MD LAB BLOOD ORDERABLES Final Result Performing Organization Address [facility] Co de Phone Number [facility] [employer] [place] [address] * (ABNORMAL) Magnesium (07/02/2025 9:44 PM BISQUE GRADER) [facility] Magnesium 2.6(H) 1.4 - 2.5 mg/dL Blood 07/02/2025 9:44 PM BISQUE GRADER 07/02/2025 10:31 PM BISQUE GRADER Najma Pires MD LAB BLOOD ORDERABLES Final Result Performing Organization Address [facility] [place] [address] * (ABNORMAL) Hepatic function panel (07/02/2025 9:44 PM BISQUE GRADER) [facility] Bilirubin, total 1.4(H) 0.1 - 1.2 mg/dL Bilirubin, direct 0.7(H) 0.1 - 0.3 mg/dL [facility] Protein, pl 6.7 6.5 - 8.5 g/dL [facility] Albumin 4.6 3.5 - 5.0 g/dL [facility] Alk phos 51 40 - 130 Units/L [facility] ALT 13 7 - 45 Units/L [facility] AST 27 10 - 45 Units/L [facility] Blood 07/02/2025 9:44 PM BISQUE GRADER 07/02/2025 10:31 PM BISQUE GRADER Najma Pires MD LAB BLOOD ORDERABLES Final Result [facility] Department [place] [address] * (ABNORMAL) Basic metabolic panel (07/02/2025 9:44 PM BISQUE GRADER) [facility] Sodium 128(L) 135 - 145 mmol/L Potassium, pl 3.5 3.3 - 4.9 mmol/L [facility] Chloride 93(L) 97 - 110 mmol/L [facility] CO2 21(L) 22 - 32 mmol/L [facility] Anion gap 14 2 - 15 mmol/L [facility] BUN 52(H) 6 - 25 mg/dL [facility] Creatinine 5.03(H) 0.60 - 1.10 mg/dL [facility] Glucose 215(H) 70 - 199 mg/dL [facility] [...] interpretive data was last revised 2022. Calcium 9.0 8.5 - 10.3 mg/dL [facility] Blood 07/02/2025 9:44 PM BISQUE GRADER 07/02/2025 10:31 PM BISQUE GRADER Najma Pires MD LAB BLOOD ORDERABLES Final Result Performing Organization Address City/[facility]/ZIP Co de Phone Number [facility] [place] [address] * [place] ARTL CATHJ/CANNULJ MNTR/TRANSFUSION SPX PRQ (07/02/2025 9:30 PM BISQUE GRADER) Kyle Veliz DO - 07/02/2025 9:30 PM BISQUE GRADER Kyle Cash DO 07/07/2025 4:32 AM Arterial Line Insertion Date/Time: 07/02/2025 9:30 PM Performed by: Kathi Torres NP Authorized by: Kyle Cash DO [place] Protocol: RN Notified of Procedure: yes Informed consent: Risks, benefits, alternatives discussed and 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 and accepts Patient's stated name/ matches armband: Yes Allergies confirmed: yes Consent form signed, dated, timed; matches correct patient, intended procedure and site: Yes Supplies, devices and special equipment are available: yes Immediately prior to the procedure a time out was called: a verbal verification by the procedure participants confirmed correct patient identity, correct site/side marked and visible (if applicable); agreement on procedure to be done; and correct patient positioning Indications: hemodynamic monitoring Location: Left radial Anesthesia: Local infiltration Local anesthetic: Lidocaine 1% Patient skin preparation: chlorhexidine Ultrasound guidance: Pre-procedure diagnostic and real-time needle guidance Patient preparation: Handwashing, mask, towels, sterile probe cover, cap and gloves Rl's test normal?: Yes Catheter gauge: 20 Single percutaneous needle puncture: Yes Seldinger technique used: Yes Number of attempts: 1 Placement confirmed with arterial waveform: Yes Post-procedure: Line sutured and dressing applied Post-procedure CMS: Normal Patient tolerance: Patient tolerated the procedure well with no immediate complications Complications: no complications noted during insertion Post Procedure Debrief: All guidewires, needles, sponges or other items are accounted for: yes Kyle Cash DO IV THERAPY ORDERABLES Final Result * Critical Care (07/02/2025 8:18 PM BISQUE GRADER) Kyle Veliz DO - 07/02/2025 8:18 PM BISQUE GRADER Kyle Cash DO 07/09/2025 3:20 AM Critical Care Performed by: Kathi Torres NP Authorized by: Kathi Torres NP CRITICAL CARE: Team: SICU BLUE Shift: PM Level of Billing: Critical Care My time spent with this patient was 210 minutes: Critical Provider Statement: I have seen and examined the patient on this day of service. I have reviewed and confirmed the history, physical exam, laboratory and radiologic data as documented in the signed ICU note. I have reviewed and discussed my treatment plan with the ICU team and other medical/nursing education consultant staff, making frequent assessments and decisions regarding this patient's complex medical care. Critical Care time was exclusive of time spent performing separately billed procedures, treating other patients, and teaching. This time was in addition to and separate from critical care provided by other practitioners in my group on this day of service. Critical Care was necessary to treat or prevent imminent or life-threatening deterioration of the following conditions: I spent time reviewing and interpreting data from bedside monitors, laboratory results, and imaging, I spent time discussing the management of this critically ill patient with consultants and the medical staff and I spent time documenting in the medical record Kathi Torres FRUIT PICKER MACHINE OPERATOR IN CLINIC/BEDSIDE ORDERA BLES Final Result * (ABNORMAL) POCT glucose (07/02/2025 7:08 PM BISQUE GRADER) Glucose, POC 307(H) 70 - 199 mg/dL Comment:Glu2: RN/ Notified Glucose comment 1 Glu2: TYRA/ [facility] Blood 07/02/2025 7:08 PM BISQUE GRADER 07/02/2025 7:08 PM BISQUE GRADER Najma Pires MD LAB POCT ORDERABLES - DEVIC E Final Result [facility] [place] [address] * (ABNORMAL) POCT glucose (07/02/2025 7:07 PM BISQUE GRADER) Glucose, POC 301(H) 70 - 199 mg/dL Comment:Glu2: RN/ Notified Glucose comment 1 Glu2: TYRA/ Notified CHARISSA [facility] Blood 07/02/2025 7:07 PM BISQUE GRADER 07/02/2025 7:07 PM BISQUE GRADER Najma Pires MD LAB POCT ORDERABLES - DEVIC E Final Result Performing Organization Address [facility] Co de Phone Number CHARISSA [facility] Department [place] [employer] [place] [address] * (ABNORMAL) aPTT (07/02/2025 5:10 PM BISQUE GRADER) aPTT 132(H) 26 - 38 sec Comment: No clot detected in sample Repeated and verified - [id number] - 07/02/25, 5:51 PM Interpretive Data Heparin therapeutic range: 66.0 - 100.0 seconds. Range based on correlation with therapeutic heparin activity range of 0.3 - 0.7 Units/mL. Blood 07/02/2025 5:10 PM BISQUE GRADER 07/02/2025 5:31 PM BISQUE GRADER Narrative [facility] - 07/02/2025 5:51 PM BISQUE GRADER STAT PTT timing: - Draw 6 hours after heparin infusion initiation - Draw 6 hours after every dose change until 2 consecutive PTTs are therapeutic - Once 2 consecutive PTTs are therapeutic, obtain with daily labs until infusion is discontinued - - Restart every 6 hour lab draws and follow instructions accordingly if PTT is outside of therapeutic range Do not draw lab from IV line that is actively infusing heparin. Use the opposite arm. If arm with actively infusing heparin must be used, pause the infusion for at least 2 minutes, and draw specimen below the IV site. For patients with a central venous catheter (CVC), lab must be drawn peripherally (not from CVC). us Stephanie Low NP LAB BLOOD ORDERABLES F inal Result Performing Organization Address City/[facility]/ZIP Co de Phone Number CHARISSA [facility] Department [place] [employer] [place] [address] * (ABNORMAL) POCT glucose (07/02/2025 3:09 PM BISQUE GRADER) Glucose, POC 212(H) 70 - 199 mg/dL Blood 07/02/2025 3:09 PM BISQUE GRADER 07/02/2025 3:09 PM BISQUE GRADER Najma Pires MD LAB POCT ORDERABLES - DEVIC E Final Result Performing Organization Address City/[facility]/ZIP Co de Phone Number [facility] [place] [address] * Immature platelet fraction (07/02/2025 2:42 PM BISQUE GRADER) [facility] IPF 4.0 1.6 - 10.1 % Blood 07/02/2025 2:42 PM BISQUE GRADER 07/02/2025 3:00 PM BISQUE GRADER Stephanie Low NP LAB BLOOD ORDERABLES F inal Result Performing Organization Address [facility] de Phone Number [facility] Department [place] [address] * (ABNORMAL) CBC without differential (07/02/2025 2:42 PM BISQUE GRADER) [facility] WBC 2.58(L) 3.80 - 9.90 K/cumm Hgb 7.5(L) 11.9 - 15.5 g/dL [facility] Hct 22.3(L) 35.6 - 45.5 % [facility] Plt 40(C) 150 - 400 K/cumm [facility] Comment:Platelet count confi rmed by additional testing. Critical platelet count threshold determined by patient location: Outpatient:<50 K/cumm , Inpatient adults:<20 K/cumm , Inpatient pediatric:<25 K/cumm, BMT service:<10 K/cumm MPV 12.1 9.1 - 12.3 fL [facility] RBC 2.71(L) 3.90 - 5.20 M/cumm [facility] MCV 82.3 81.3 - 96.4 fL [facility] MCH 27.7 27.1 - 33.3 pg [facility] MCHC 33.6 32.3 - 35.7 g/dL [facility] RDW CV 15.6(H) 11.1 - 14.9 % [facility] RDW SD 47.0 35.7 - 48.1 fL [facility] NRBC abs 0.00 0.00 - 0.01 K/cumm [facility] Blood 07/02/2025 2:42 PM BISQUE GRADER 07/02/2025 2:57 PM BISQUE GRADER Stephanie Low FRUIT PICKER MACHINE OPERATOR LAB BLOOD ORDERABLES F inal Result Performing Organization Address [facility] de Phone Number [facility] [place] [employer] [place] [address] * Transfuse RBC (07/02/2025 2:39 PM BISQUE GRADER) Blood Lynne Coronel FRUIT PICKER MACHINE OPERATOR BLOOD TRANSFUSION O RDERABLES Final Result Performing Organization Address [facility] de Phone Number [facility] [place] [employer] [place] [address] * (ABNORMAL) POCT glucose (07/02/2025 11:03 AM BISQUE GRADER) Pathologist [facility] Glucose, POC 211(H) 70 - 199 mg/dL Comment:Glu2: RN/MD Notified Glucose comment 1 Glu2: RN/MD Notified [facility] Blood 07/02/2025 11:0 3 AM BISQUE GRADER 07/02/2025 11:03 AM BISQUE GRADER Najma Pires MD LAB POCT ORDERABLES - DEVIC E Final Result Performing Organization Address [facility] de Phone Number [facility] [employer] [place] [address] * Urinalysis reflex to microscopic (07/02/2025 8:59 AM BISQUE GRADER) Color, ur Yellow Yellow Clarity, ur Clear Clear [facility] Specific gravity, ur 1.025 1.003 - 1.030 [facility] pH, [...] tendency for uric acid stone formation. Source: [facility] Current Interpretive Data was last revised on 2017 Protein, ur ql Trace Negative [facility] Glucose, ur ql Negative Negative [facility] Ketones, ur Negative Negative [facility] Bilirubin, ur Negative Negative [facility] Blood, ur Negative Negative [facility] Urobilinogen, ur <2.0 <2.0 mg/dL [facility] Nitrite, ur Negative Negative [facility] Leukocyte esterase, ur Negative Negative [facility] UA reflex comment Reflex conditions for microscopic UA not met. [facility] Urine 07/02/2025 8:59 AM BISQUE GRADER 07/02/2025 9:20 AM BISQUE GRADER Lynne Coronel FRUIT PICKER MACHINE OPERATOR LAB URINE ORDERABLE S Final Result Performing Organization Address City/[facility]/ZIP Co de Phone Number [facility] Department [place] [address] * Urea nitrogen, urine, random (07/02/2025 8:59 AM BISQUE GRADER) Urea nitrogen, ur 309 mg/dL Comment: Interpretive Data No reference range established. Current interpretive data was last revised 2018. Urine 07/02/2025 8:59 AM BISQUE GRADER 07/02/2025 9:27 AM BISQUE GRADER us Stephanie Low FRUIT PICKER MACHINE OPERATOR LAB URINE ORDERABLES F inal Result [facility] Department [place] [address] * Sodium, urine, random (07/02/2025 8:59 AM BISQUE GRADER) Sodium, ur <20 mmol/L Comment: Repeated and Verified Interpretive Data No reference range established. Current interpretive data was last revised 2018. Urine (Urine, Clean Catch) 07/02/2025 8:59 AM BISQUE GRADER 07/02/2025 9:20 AM BISQUE GRADER Lynne Coronel FRUIT PICKER MACHINE OPERATOR LAB URINE ORDERABLE S Final Result Performing Organization Address [facility] de Phone Number [facility] [place] [address] * Creatinine, urine, random (07/02/2025 8:59 AM BISQUE GRADER) Creatinine Ur 169.9 mg/dL Comment: Interpretive Data No reference range established. Current interpretive data was last revised 2018. Urine 07/02/2025 8:59 AM BISQUE GRADER 07/02/2025 9:20 AM BISQUE GRADER Lynne Coronel FRUIT PICKER MACHINE OPERATOR LAB URINE ORDERABLE S Final Result Performing Organization Address [facility] Phone Number [facility] Department [place] [address] * (ABNORMAL) aPTT (07/02/2025 8:59 AM BISQUE GRADER) aPTT 49(H) 26 - 38 sec Comment: Interpretive Data Heparin therapeutic range: 66.0 - 100.0 seconds. Range based on correlation with therapeutic heparin activity range of 0.3 - 0.7 Units/mL. Blood 07/02/2025 8:59 AM BISQUE GRADER 07/02/2025 9:25 AM BISQUE GRADER Narrative [facility] - 07/02/2025 9:57 AM BISQUE GRADER Baseline prior to heparin initiation Stephanie Low FRUIT PICKER MACHINE OPERATOR LAB BLOOD ORDERABLES F inal Result Performing Organization Address [facility]/ZIP Co de Phone Number [facility] Department [place] [address] * (ABNORMAL) Protime-INR (07/02/2025 8:59 AM BISQUE GRADER) PT 18.7(H) 10.2 - 13.5 sec INR 1.67(H) 0.90 - 1.20 [facility] Comment: Interpretive data Oral anticoagulant therapeutic ranges: Venous thromboembolism prophylaxis or treatment: 2.0-3.0 CARDIOLOGY Standard range: 2.0-3.0 High-intensity range: 2.5-3.5 Refer to indication-specific guidelines for appropriate target ranges for prosthetic heart valve replacement. Current interpretive data was last revised on 2019. Blood 07/02/2025 8:59 AM BISQUE GRADER 07/02/2025 9:25 AM BISQUE GRADER Najma Pires MD LAB BLOOD ORDERABLES Final Result Performing Organization Address [facility] Co de Phone Number [facility] Department [place] [address] * POCT glucose (07/02/2025 7:23 AM BISQUE GRADER) Glucose, POC 164 70 - 199 mg/dL Blood 07/02/2025 7:23 AM BISQUE GRADER 07/02/2025 7:23 AM BISQUE GRADER Najma Pires MD LAB POCT ORDERABLES - DEVIC E Final Result Performing Organization Address City/[facility] Co de Phone Number [facility] [place] [address] * Critical Care (07/02/2025 6:15 AM BISQUE GRADER) Narrative Jonathan Bright MD - 07/02/2025 6:15 AM BISQUE GRADER Jonathan Bright MD 07/03/2025 9:07 AM Critical Care Performed by: Lynne Coronel NP Authorized by: Lynne Coronel NP CRITICAL CARE: Team: SICU BLUE Shift: AM Level of Billing: Critical Care My time spent with this patient was 90 minutes: Critical Provider Statement: I have seen and examined the patient on this day of service. I have reviewed and confirmed the history, physical exam, laboratory and radiologic data as documented in the signed ICU note. I have reviewed and discussed my treatment plan with the ICU team and other medical/nursing education consultant staff, making frequent assessments and decisions regarding this patient's complex medical care. Critical Care time was exclusive of time spent performing separately billed procedures, treating other patients, and teaching. This time was in addition to and separate from critical care provided by other practitioners in my group on this day of service. Critical Care was necessary to treat or prevent imminent or life-threatening deterioration of the following conditions: us Lynne Coronel NP IN CLINIC/BEDSIDE O RDERABLES Final Result * (ABNORMAL) eGFR (07/02/2025 5:58 AM BISQUE GRADER) eGFR 13(L) >=60 mL/min/1. 73 m2 Comment: [...] interpretive data was last reviewed 2021. Blood 07/02/2025 5:58 AM BISQUE GRADER 07/02/2025 6:08 AM BISQUE GRADER us Kathi Torres NP LAB BLOOD ORDERABLES Fin al Result Performing Organization Address [facility] de Phone Number [facility] Department [place] [address] * (ABNORMAL) CBC without differential (07/02/2025 5:58 AM BISQUE GRADER) [facility] WBC 3.01(L) 3.80 - 9.90 K/cumm Hgb 6.9(L) 11.9 - 15.5 g/dL [facility] Hct 21.0(L) 35.6 - 45.5 % [facility] Plt 56(L) 150 - 400 K/cumm [facility] MPV 11.5 9.1 - 12.3 fL [facility] RBC 2.57(L) 3.90 - 5.20 M/cumm [facility] MCV 81.7 81.3 - 96.4 fL [facility] MCH 26.8(L) 27.1 - 33.3 pg [facility] MCHC 32.9 32.3 - 35.7 g/dL [facility] RDW CV 15.4(H) 11.1 - 14.9 % [facility] RDW SD 46.6 35.7 - 48.1 fL [facility] NRBC abs 0.00 0.00 - 0.01 K/cumm [facility] Blood 07/02/2025 5:58 AM BISQUE GRADER 07/02/2025 6:09 AM BISQUE GRADER Result [facility] LAB BLOOD ORDERABLES Fin al Result Performing Organization Address [facility] Co de Phone Number [facility] Department [place] [address] * (ABNORMAL) Basic metabolic panel (07/02/2025 5:58 AM BISQUE GRADER) [facility] Sodium 127(L) 135 - 145 mmol/L Potassium, pl 3.8 3.3 - 4.9 mmol/L [facility] Chloride 91(L) 97 - 110 mmol/L [facility] CO2 23 22 - 32 mmol/L [facility] Anion gap 13 2 - 15 mmol/L [facility] BUN 48(H) 6 - 25 mg/dL [facility] Creatinine 3.78(H) 0.60 - 1.10 mg/dL [facility] Glucose 145 70 - 199 mg/dL [facility] [...] 2022. Calcium 8.6 8.5 - 10.3 mg/dL [facility] Blood 07/02/2025 5:58 AM BISQUE GRADER 07/02/2025 6:08 AM BISQUE GRADER Kathi De Guzman [facility] LAB BLOOD ORDERABLES Fin al Result Performing Organization Address City/[facility]/ZIP Co de Phone Number [facility] Department [place] [employer] [place] [address] * POCT glucose (07/02/2025 3:45 AM BISQUE GRADER) Glucose, POC 175 70 - 199 mg/dL Blood 07/02/2025 3:45 AM BISQUE GRADER 07/02/2025 3:45 AM BISQUE GRADER Najma Pires MD LAB POCT ORDERABLES - DEVIC E Final Result Performing Organization Address City/[facility]/ZIP Co de Phone Number [facility] Department [place] [employer] [place] [address] * (ABNORMAL) eGFR (07/01/2025 8:55 PM BISQUE GRADER) eGFR 17(L) >=60 mL/min/1. 73 m2 Comment: Interpretive Data [...] interpretive data was last reviewed 2021. Blood 07/01/2025 8:55 PM BISQUE GRADER 07/01/2025 9:29 PM BISQUE GRADER us Najma Pires MD LAB BLOOD ORDERABLES Final Result [facility] Department [place] [address] * (ABNORMAL) Differential, auto (07/01/2025 8:55 PM BISQUE GRADER) Neutrophil abs 2.18 1.50 - 6.50 K/cumm Imm gran abs 0.01 0.00 - 0.10 K/cumm [facility] Lymphocyte abs 0.43(L) 0.80 - 3.30 K/cumm [facility] Monocyte abs 0.51 0.20 - 0.80 K/cumm [facility] Eosinophil abs 0.24 0.00 - 0.50 K/cumm [facility] Basophil abs 0.01 0.00 - 0.10 K/cumm [facility] Neutrophil pct 64.5 % [facility] Comment: Interpretive Data [...] was last revised on 2017. Monocyte pct 15.1 % [facility] Comment: Interpretive Data Percent cell count reference ranges are not reported, since discordance with absolute values may lead to misinterpretation of CBC data. Current Interpretive Data was last revised on 2017. Eosinophil pct 7.1 % [facility] Comment: Interpretive Data [...] Data was last revised on 2017. Blood 07/01/2025 8:55 PM BISQUE GRADER 07/01/2025 9:27 PM BISQUE GRADER us Najma Pires MD LAB BLOOD ORDERABLES Final Result [facility] Department [place] [address] * (ABNORMAL) CBC with auto differential (07/01/2025 8:55 PM BISQUE GRADER) WBC 3.38(L) 3.80 - 9.90 K/cumm Hgb 7.0(L) 11.9 - 15.5 g/dL [facility] Hct 21.2(L) 35.6 - 45.5 % [facility] Plt 82(L) 150 - 400 K/cumm [facility] MPV 12.9(H) 9.1 - 12.3 fL [facility] RBC 2.58(L) 3.90 - 5.20 M/cumm [facility] MCV 82.2 81.3 - 96.4 fL [facility] MCH 27.1 27.1 - 33.3 pg [facility] MCHC 33.0 32.3 - 35.7 g/dL [facility] RDW CV 15.7(H) 11.1 - 14.9 % [facility] RDW SD 46.7 35.7 - 48.1 fL [facility] NRBC abs 0.00 0.00 - 0.01 K/cumm [facility] Blood 07/01/2025 8:55 PM BISQUE GRADER 07/01/2025 9:27 PM BISQUE GRADER us Najma Pires MD LAB BLOOD ORDERABLES Final Result Performing Organization Address [facility] de Phone Number [facility] Department [place] [address] * (ABNORMAL) Phosphorus (07/01/2025 8:55 PM BISQUE GRADER) Phosphorus, pl 2.0(L) 2.3 - 4.5 mg/dL Blood 07/01/2025 8:55 PM BISQUE GRADER 07/01/2025 9:29 PM BISQUE GRADER Najma Pires MD LAB BLOOD ORDERABLES Final Result Performing Organization Address [facility] de Phone Number [facility] Department [place] [address] * (ABNORMAL) Magnesium (07/01/2025 8:55 PM BISQUE GRADER) Magnesium 2.6(H) 1.4 - 2.5 mg/dL Blood 07/01/2025 8:55 PM BISQUE GRADER 07/01/2025 9:29 PM BISQUE GRADER Najma Pires MD LAB BLOOD ORDERABLES Final Result Performing Organization Address [facility] de Phone Number [facility] Department [place] [address] * Hepatic function panel (07/01/2025 8:55 PM BISQUE GRADER) [facility] Bilirubin, total 1.0 0.1 - 1.2 mg/dL Bilirubin, direct 0.3 0.1 - 0.3 mg/dL [facility] Comment:Hemolyzed; result ma y be falsely decreased Protein, pl 6.6 6.5 - 8.5 g/dL [facility] Albumin 4.0 3.5 - 5.0 g/dL [facility] Alk phos 50 40 - 130 Units/L [facility] ALT 16 7 - 45 Units/L [facility] AST 39 10 - 45 Units/L [facility] Comment:Hemolyzed; result ma y be falsely elevated Blood 07/01/2025 8:55 PM BISQUE GRADER 07/01/2025 9:29 PM BISQUE GRADER Najma Pires MD LAB BLOOD ORDERABLES Final Result [facility] Department [place] [address] * (ABNORMAL) Basic metabolic panel (07/01/2025 8:55 PM BISQUE GRADER) [facility] Sodium 130(L) 135 - 145 mmol/L Potassium, pl 4.5 3.3 - 4.9 mmol/L [facility] Comment:Hemolyzed; Potassium value may be falsely elevated by as much as 0.3-0.5 mmol/L. Suggest redraw and reanalysis. Chloride 96(L) 97 - 110 mmol/L [facility] CO2 23 22 - 32 mmol/L [facility] Anion gap 11 2 - 15 mmol/L [facility] BUN 42(H) 6 - 25 mg/dL [facility] Creatinine 3.03(H) 0.60 - 1.10 mg/dL [facility] Glucose 146 70 - 199 mg/dL [facility] [...] interpretive data was last revised 2022. Calcium 9.0 8.5 - 10.3 mg/dL [facility] Blood 07/01/2025 8:55 PM BISQUE GRADER 07/01/2025 9:29 PM BISQUE GRADER Najma Pires MD LAB BLOOD ORDERABLES Final Result Performing Organization Address City/[facility]/ZIP Co de Phone Number [facility] Department [place] [address] * POCT glucose (07/01/2025 8:32 PM BISQUE GRADER) Glucose, POC 188 70 - 199 mg/dL Blood 07/01/2025 8:32 PM BISQUE GRADER 07/01/2025 8:32 PM BISQUE GRADER Najma Pires MD LAB POCT ORDERABLES - DEVIC E Final Result Performing Organization Address City/[facility]/ZIP Co de Phone Number [facility] Department [place] [address] * Infection Prevention Tomasa auris PCR, surveillance Axilla/Groin (07/01/2025 7:30 PM BISQUE GRADER) Tomasa auris DNA Not Detected Not Detected [facility] Comment: Interpretive Data Testing performed by [facility] using the Becki vianca 6800 Tomasa auris assay. This assay detects DNA from Tomasa auris using Real-Time PCR. This assay is laboratory developed and is not cleared by the [place] Food and Drug Administration. The performance characteristics have been verified by the [facility]. Axilla/Groin 07/01/2025 7:30 PM BISQUE GRADER 07/01/2025 8:32 PM BISQUE GRADER Molina Longoria MD LAB MICROBIOLOGY - GENERAL ORDER [place] Final Result Performing Organization Address [facility] Co de Phone Number [facility] [place] [address] [facility] * (ABNORMAL) POCT glucose (07/01/2025 5:14 PM BISQUE GRADER) Glucose, POC 208(H) 70 - 199 mg/dL Blood 07/01/2025 5:14 PM BISQUE GRADER 07/01/2025 5:14 PM BISQUE GRADER Najma Pires MD LAB POCT ORDERABLES - DEVIC E Final Result Performing Organization Address [facility] Co de Phone Number [facility] [place] [address] * POCT glucose (07/01/2025 1:16 PM BISQUE GRADER) Glucose, POC 171 70 - 199 mg/dL Blood 07/01/2025 1:16 PM BISQUE GRADER 07/01/2025 1:16 PM BISQUE GRADER Najma Pires MD LAB POCT ORDERABLES - DEVIC E Final Result Performing Organization Address City/[facility] [place] [address] * (ABNORMAL) POCT glucose (07/01/2025 8:04 AM BISQUE GRADER) Glucose, POC 250(H) 70 - 199 mg/dL Comment:Glu2: RN/MD Notified Glucose comment 1 Glu2: RN/MD Notified [facility] Blood 07/01/2025 8:04 AM BISQUE GRADER 07/01/2025 8:04 AM BISQUE GRADER us Najma Pires MD LAB POCT ORDERABLES - DEVIC E Final Result [facility] Department [place] [address] * Critical Care (07/01/2025 7:51 AM BISQUE GRADER) Narrative Jonathan Bright MD - 07/01/2025 7:51 AM BISQUE GRADER Jonathan Bright MD 07/02/2025 2:46 PM Critical Care Performed by: Lynne Coronel NP Authorized by: Lynne Coronel NP CRITICAL CARE: Team: SICU BLUE Shift: AM Level of Billing: Subsequent Hospital Visit Level 3 My time spent with this patient was 75 minutes: Critical Provider Statement: I have seen and examined the patient on this day of service. I have reviewed and confirmed the history, physical exam, laboratory, and radiographic data as documented in the ICU note. I have reviewed and discussed my treatment plan with the patient's team and other medical/nursing education consultant staff. This time was in addition to and separate from care provided by other practitioners on this day of service. us Lynne Coronel FRUIT PICKER MACHINE OPERATOR IN CLINIC/BEDSIDE O RDERABLES Final Result * (ABNORMAL) eGFR (07/01/2025 5:16 AM BISQUE GRADER) eGFR 31(L) >=60 mL/min/1. 73 m2 Comment: [...] interpretive data was last reviewed 2021. Blood 07/01/2025 5:16 AM BISQUE GRADER 07/01/2025 5:28 AM BISQUE GRADER Abril Rowland MD LAB BLOOD ORDERABLES Final Result [facility] Department [place] [address] * (ABNORMAL) Basic metabolic panel (07/01/2025 5:16 AM BISQUE GRADER) Pathologist [facility] Sodium 136 135 - 145 mmol/L Potassium, pl 3.8 3.3 - 4.9 mmol/L [facility] Chloride 99 97 - 110 mmol/L [facility] CO2 24 22 - 32 mmol/L [facility] Anion gap 13 2 - 15 mmol/L [facility] BUN 41(H) 6 - 25 mg/dL [facility] Creatinine 1.82(H) 0.60 - 1.10 mg/dL [facility] [...] 2022. Calcium 8.9 8.5 - 10.3 mg/dL [facility] Blood 07/01/2025 5:16 AM BISQUE GRADER 07/01/2025 5:28 AM BISQUE GRADER bAril Rowland MD LAB BLOOD ORDERABLES Final Result Performing Organization Address City/[facility]/ZIP Co de Phone Number [facility] [employer] [place] [address] * POCT glucose (07/01/2025 4:02 AM BISQUE GRADER) Glucose, POC 145 70 - 199 mg/dL Blood 07/01/2025 4:02 AM BISQUE GRADER 07/01/2025 4:02 AM BISQUE GRADER Najma Pires MD LAB POCT ORDERABLES - DEVIC E Final Result Performing Organization Address [facility] de Phone Number [facility] [place] [address] * ECG 12 lead (07/01/2025 12:17 AM BISQUE GRADER) [facility] Ventricular Rate EKG/Min 78 BPM [facility] Atrial Rate 234 BPM [facility] QRS-Interval (MSEC) 154 ms [facility] QT-Interval (MSEC) 460 ms [facility] QTc 524 ms [facility] R [place] 47 degrees [facility] T [place] 62 degrees [facility] Diagnosis Atrial flutter with variable A-V block Right bundle branch block Abnormal ECG Confirmed by Bill SOLER, [facility] ([id number]) on 07/05/2025 11:51:34 AM [facility] 07/01/2025 12:1 7 AM BISQUE GRADER 07/05/2025 11:51 AM BISQUE GRADER Lynne Coronel NP ECG ORDERABLES Fin al Result Performing Organization Address [facility] Co de Phone Number [facility] * POCT glucose (07/01/2025 12:01 AM BISQUE GRADER) Glucose, POC 128 70 - 199 mg/dL Blood 07/01/2025 12:0 1 AM BISQUE GRADER 07/01/2025 12:01 AM BISQUE GRADER us Najma Pires MD LAB POCT ORDERABLES - DEVIC E Final Result [facility] Department [place] [address] * ELECTIVE CARDIOVERSION (07/01/2025 12:00 AM BISQUE GRADER) Narrative Abril Rowland MD - 07/01/2025 12:00 AM BISQUE GRADER Abril Rowland MD 07/26/2025 9:49 AM Elective Cardioversion Date/Time: 07/01/2025 12:00 AM Performed by: Gayle Rivera MD Authorized by: Gayle Rivera MD [place] Protocol: RN Notified of Procedure: yes Informed consent: 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 and accepts and risks, benefits, alternatives discussed Patient's stated name/ matches armband: Yes Allergies confirmed: yes Consent form signed, dated, timed; matches correct patient, intended procedure and site: Yes Imaging: Pertinent imaging reviewed, correctly oriented and match to patient identifiers Lab/Diag test results: Pertinent lab/diag tests reviewed and match to patient identifiers Supplies, devices and special equipment are available: yes Site/side marked: yes Immediately prior to the procedure a time out was called: a verbal verification by the procedure participants confirmed correct patient identity, correct site/side marked and visible (if applicable); agreement on procedure to be done; and correct patient positioning Procedure details: Confirmed NPO status. Airway exam shows good cervical ROM, mallampati II, full mouth opening, lungs CTAB. ASA 3. Patient monitored with continuous waveform capnography, pulse ox, lobsterman with q3min BPs. Given 10mg of etomidate to facilitate cardioversion. After adequate depth of sedation achieved performed synchronized cardioversion at 200j. Converted to NSR. Repeat blood pressure unchanged. Monitored until easily awakens to voice. No complications during procedure. Post Procedure Debrief: All guidewires, needles, sponges or other items are accounted for: yes us Gayle Rivera MD IN CLINIC/BEDSIDE ORDERABLES Final Result * (ABNORMAL) eGFR (06/30/2025 9:06 PM BISQUE GRADER) eGFR 32(L) >=60 mL/min/1. 73 m2 Comment: [...] interpretive data was last reviewed 2021. Blood 06/30/2025 9:06 PM BISQUE GRADER 06/30/2025 9:16 PM BISQUE GRADER us Vasile Ochoa FRUIT PICKER MACHINE OPERATOR LAB BLOOD ORDERABLES Final Result [facility] [employer] [place] [address] * aPTT (06/30/2025 9:06 PM BISQUE GRADER) Pathologist [facility] aPTT 31 26 - 38 sec Comment: Interpretive Data Heparin therapeutic range: 66.0 - 100.0 seconds. Range based on correlation with therapeutic heparin activity range of 0.3 - 0.7 Units/mL. Blood 06/30/2025 9:06 PM BISQUE GRADER 06/30/2025 9:27 PM BISQUE GRADER us Lynne Coronel FRUIT PICKER MACHINE OPERATOR LAB BLOOD ORDERABLE S Final Result [facility] Department [place] [address] * (ABNORMAL) Protime-INR (06/30/2025 9:06 PM BISQUE GRADER) [facility] PT 17.9(H) 10.2 - 13.5 sec INR 1.60(H) 0.90 - 1.20 [facility] Comment: Interpretive data Oral anticoagulant therapeutic ranges: Venous thromboembolism prophylaxis or treatment: 2.0-3.0 CARDIOLOGY Standard range: 2.0-3.0 High-intensity range: 2.5-3.5 Refer to indication-specific guidelines for appropriate target ranges for prosthetic heart valve replacement. Current interpretive data was last revised on 2019. Blood 06/30/2025 9:06 PM BISQUE GRADER 06/30/2025 9:27 PM BISQUE GRADER Lynne Coronel FRUIT PICKER MACHINE OPERATOR LAB BLOOD ORDERABLE S Final Result [facility] Department [place] [address] * (ABNORMAL) CBC without differential (06/30/2025 9:06 PM BISQUE GRADER) [facility] WBC 3.26(L) 3.80 - 9.90 K/cumm Hgb 8.0(L) 11.9 - 15.5 g/dL [facility] Hct 25.0(L) 35.6 - 45.5 % [facility] Plt 69(L) 150 - 400 K/cumm [facility] MPV 11.1 9.1 - 12.3 fL [facility] RBC 2.98(L) 3.90 - 5.20 M/cumm [facility] MCV 83.9 81.3 - 96.4 fL [facility] MCH 26.8(L) 27.1 - 33.3 pg [facility] MCHC 32.0(L) 32.3 - 35.7 g/dL [facility] RDW CV 15.6(H) 11.1 - 14.9 % [facility] RDW SD 47.6 35.7 - 48.1 fL [facility] NRBC abs 0.00 0.00 - 0.01 K/cumm [facility] Blood 06/30/2025 9:06 PM BISQUE GRADER 06/30/2025 9:16 PM BISQUE GRADER us Yes Perla Ochoa FRUIT PICKER MACHINE OPERATOR LAB BLOOD ORDERABLES Final Result Performing Organization Address [facility] Co de Phone Number [facility] [place] [address] * Phosphorus (06/30/2025 9:06 PM BISQUE GRADER) [facility] Phosphorus, pl 2.4 2.3 - 4.5 mg/dL Blood 06/30/2025 9:06 PM BISQUE GRADER 06/30/2025 9:16 PM BISQUE GRADER us Yes Perla Ochoa FRUIT PICKER MACHINE OPERATOR LAB BLOOD ORDERABLES Final Result Performing Organization Address [facility] Co de Phone Number [facility] [place] [address] * (ABNORMAL) Magnesium (06/30/2025 9:06 PM BISQUE GRADER) [facility] Magnesium 2.7(H) 1.4 - 2.5 mg/dL Blood 06/30/2025 9:06 PM BISQUE GRADER 06/30/2025 9:16 PM BISQUE GRADER us Yes Perla Ochoa FRUIT PICKER MACHINE OPERATOR LAB BLOOD ORDERABLES Final Result Performing Organization Address [facility] [place] [address] * (ABNORMAL) Comprehensive metabolic panel (06/30/2025 9:06 PM BISQUE GRADER) [facility] Sodium 135 135 - 145 mmol/L Potassium, pl 4.0 3.3 - 4.9 mmol/L [facility] Chloride 102 97 - 110 mmol/L [facility] CO2 26 22 - 32 mmol/L [facility] Anion gap 7 2 - 15 mmol/L [facility] BUN 39(H) 6 - 25 mg/dL [facility] Creatinine 1.76(H) 0.60 - 1.10 mg/dL [facility] Glucose 96 70 - 199 mg/dL [facility] [...] interpretive data was last revised 2022. Calcium 9.0 8.5 - 10.3 mg/dL [facility] Bilirubin, total 1.8(H) 0.1 - 1.2 mg/dL [facility] Protein, pl 5.9(L) 6.5 - 8.5 g/dL [facility] Albumin 3.5 3.5 - 5.0 g/dL [facility] Alk phos 45 40 - 130 Units/L [facility] ALT 13 7 - 45 Units/L [facility] AST 28 10 - 45 Units/L [facility] Blood 06/30/2025 9:06 PM BISQUE GRADER 06/30/2025 9:16 PM BISQUE GRADER us Yesh Perla Ochoa FRUIT PICKER MACHINE OPERATOR LAB BLOOD ORDERABLES Final Result [facility] [place] [address] * POCT glucose (06/30/2025 7:56 PM BISQUE GRADER) [facility] Glucose, POC 96 70 - 199 mg/dL Blood 06/30/2025 7:56 PM BISQUE GRADER 06/30/2025 7:56 PM BISQUE GRADER us Najma Eugene Bakeer MD LAB POCT ORDERABLES - DEVIC E Final Result [facility] Department [place] [address] * Critical Care (06/30/2025 6:23 PM BISQUE GRADER) Narrative Abril Rowland MD - 06/30/2025 6:23 PM BISQUE GRADER Abril Rowland MD 07/26/2025 9:49 AM Critical Care Performed by: Vasile Ochoa NP Authorized by: Vasile Ochoa NP CRITICAL CARE: Team: SICU BLUE Shift: PM Level of Billing: Critical Care My time spent with this patient was 120 minutes: Critical Provider Statement: I have seen and examined the patient on this day of service. I have reviewed and confirmed the history, physical exam, laboratory and radiologic data as documented in the signed ICU note. I have reviewed and discussed my treatment plan with the ICU team and other medical/nursing education consultant staff, making frequent assessments and decisions regarding this patient's complex medical care. Critical Care time was exclusive of time spent performing separately billed procedures, treating other patients, and teaching. This time was in addition to and separate from critical care provided by other practitioners in my group on this day of service. Critical Care was necessary to treat or prevent imminent or life-threatening deterioration of the following conditions: I spent time reviewing and interpreting data from bedside monitors, laboratory results, and imaging, I spent time discussing the management of this critically ill patient with consultants and the medical staff and I spent time documenting in the medical record us Vasile Ochoa NP IN CLINIC/BEDSIDE ORDERABLE S Final Result * ECG 12 lead (06/30/2025 6:21 PM BISQUE GRADER) Ventricular Rate EKG/Min 90 BPM [facility] Atrial Rate 270 BPM [facility] QRS-Interval (MSEC) 174 ms [facility] QT-Interval (MSEC) 430 ms [facility] QTc 526 ms [facility] R [place] 53 degrees [facility] T [place] 2 degrees [facility] Diagnosis Atrial flutter with variable A-V block with premature ventricular or aberrantly conducted complexes Right bundle branch block Abnormal ECG Confirmed by Angel Luis Khan MD ([id number]) on 07/05/2025 11:49:06 AM [facility] 06/30/2025 6:21 PM BISQUE GRADER 07/05/2025 11:49 AM BISQUE GRADER us Lynne Coronel FRUIT PICKER MACHINE OPERATOR ECG ORDERABLES Fin al Result [facility] * POCT glucose (06/30/2025 6:13 PM BISQUE GRADER) Glucose, POC 81 70 - 199 mg/dL Blood 06/30/2025 6:13 PM BISQUE GRADER 06/30/2025 6:13 PM BISQUE GRADER us Molina Dsouza MD LAB POCT ORDERABLE S - DEVICE Final Result Performing Organization Address [facility] de Phone Number [facility] Department [place] [address] * (ABNORMAL) eGFR (06/30/2025 4:58 PM BISQUE GRADER) Pathologist [facility] eGFR 31(L) >=60 mL/min/1. 73 m2 Comment: [...] interpretive data was last reviewed 2021. Blood 06/30/2025 4:58 PM BISQUE GRADER 06/30/2025 5:11 PM BISQUE GRADER us Najma Pires MD LAB BLOOD ORDERABLES Final Result [facility] Department [place] [address] * (ABNORMAL) Differential, auto (06/30/2025 4:58 PM BISQUE GRADER) Neutrophil abs 2.12 1.50 - 6.50 K/cumm Imm gran abs 0.02 0.00 - 0.10 K[facility]cumm [facility] Lymphocyte abs 0.53(L) 0.80 - 3.30 K/cumm [facility] Monocyte abs 0.42 0.20 - 0.80 K/cumm [facility] Eosinophil abs 0.28 0.00 - 0.50 K/cumm [facility] Basophil abs 0.02 0.00 - 0.10 K/cumm [facility] Neutrophil pct 62.5 % [facility] Comment: Interpretive Data [...] was last revised on 2017. Lymphocyte pct 15.6 % [facility] Comment: Interpretive Data Percent cell count reference ranges are not reported, since discordance with absolute values may lead to misinterpretation of CBC data. Current Interpretive Data was last revised on 2017. Monocyte pct 12.4 % [facility] Comment: Interpretive Data Percent cell count reference ranges are not reported, since discordance with absolute values may lead to misinterpretation of CBC data. Current Interpretive Data was last revised on 2017. Eosinophil pct 8.3 % [facility] Comment: Interpretive Data [...] Data was last revised on 2017. Blood 06/30/2025 4:58 PM BISQUE GRADER 06/30/2025 5:11 PM BISQUE GRADER Najma Pires MD LAB BLOOD ORDERABLES Final Result [facility] Department [place] [address] * (ABNORMAL) CBC with auto differential (06/30/2025 4:58 PM BISQUE GRADER) WBC 3.39(L) 3.80 - 9.90 K/cumm Hgb 9.0(L) 11.9 - 15.5 g/dL [facility] Hct 28.2(L) 35.6 - 45.5 % [facility] Plt 74(L) 150 - 400 K/cumm [facility] MPV 11.5 9.1 - 12.3 fL [facility] RBC 3.39(L) 3.90 - 5.20 M/cumm [facility] MCV 83.2 81.3 - 96.4 fL [facility] MCH 26.5(L) 27.1 - 33.3 pg [facility] MCHC 31.9(L) 32.3 - 35.7 g/dL [facility] RDW CV 15.6(H) 11.1 - 14.9 % [facility] RDW SD 46.6 35.7 - 48.1 fL [facility] NRBC abs 0.00 0.00 - 0.01 K/cumm [facility] Blood 06/30/2025 4:58 PM BISQUE GRADER 06/30/2025 5:11 PM BISQUE GRADER Najma Pires MD LAB BLOOD ORDERABLES Final Result Performing Organization Address [facility] Co de Phone Number [facility] [place] [address] * Phosphorus (06/30/2025 4:58 PM BISQUE GRADER) Pathologist [facility] Phosphorus, pl 2.4 2.3 - 4.5 mg/dL Blood 06/30/2025 4:58 PM BISQUE GRADER 06/30/2025 5:11 PM BISQUE GRADER Najma Pires MD LAB BLOOD ORDERABLES Final Result Performing Organization Address [facility] de Phone Number [facility] Department [place] [address] * (ABNORMAL) Magnesium (06/30/2025 4:58 PM BISQUE GRADER) [facility] Magnesium 2.7(H) 1.4 - 2.5 mg/dL Blood 06/30/2025 4:58 PM BISQUE GRADER 06/30/2025 5:11 PM BISQUE GRADER Najma Pires MD LAB BLOOD ORDERABLES Final Result Performing Organization Address [facility] Co de Phone Number [facility] [place] [employer] [place] [address] * (ABNORMAL) Hepatic function panel (06/30/2025 4:58 PM BISQUE GRADER) [facility] Bilirubin, total 2.1(H) 0.1 - 1.2 mg/dL Bilirubin, direct 0.9(H) 0.1 - 0.3 mg/dL [facility] Protein, pl 6.6 6.5 - 8.5 g/dL [facility] Albumin 4.2 3.5 - 5.0 g/dL [facility] Alk phos 48 40 - 130 Units/L [facility] ALT 13 7 - 45 Units/L [facility] AST 26 10 - 45 Units/L [facility] Blood 06/30/2025 4:58 PM BISQUE GRADER 06/30/2025 5:11 PM BISQUE GRADER Najma Pires MD LAB BLOOD ORDERABLES Final Result [facility] Department [place] [address] * (ABNORMAL) Basic metabolic panel (06/30/2025 4:58 PM BISQUE GRADER) [facility] Sodium 132(L) 135 - 145 mmol/L Potassium, pl 3.1(L) 3.3 - 4.9 mmol/L [facility] Chloride 93(L) 97 - 110 mmol/L [facility] CO2 25 22 - 32 mmol/L [facility] Anion gap 14 2 - 15 mmol/L [facility] BUN 41(H) 6 - 25 mg/dL [facility] Creatinine 1.80(H) 0.60 - 1.10 mg/dL [facility] Glucose 82 70 - 199 mg/dL [facility] [...] 2022. Calcium 9.2 8.5 - 10.3 mg/dL [facility] Blood 06/30/2025 4:58 PM BISQUE GRADER 06/30/2025 5:11 PM BISQUE GRADER Najma Pires MD LAB BLOOD ORDERABLES Final Result Performing Organization Address [facility]/ZIP Co de Phone Number [facility] Department [place] [address] * (ABNORMAL) POC Blood Gas and Chemistries, Arterial - (06/30/2025 4:57 PM BISQUE GRADER) Na, POC 133(L) 135 - 145 mmol/L K POC 2.9(L) 3.3 - 4.9 mmol/L [facility] Comment: Interpretive Data Not all point of care methods assess for hemolysis. Confirm with instrument and retest K+ if not consistent with clinical signs and symptoms. Current Interpretive Data was last revised on 2023. Glucose, POC 89 70 - 199 mg/dL [facility] Hct, POC 29.0(L) 36.3 - 45.3 % [facility] Total Hb, POC 9.8(L) 11.9 - 15.5 g/dL [facility] Blood 06/30/2025 4:57 PM BISQUE GRADER 06/30/2025 4:57 PM BISQUE GRADER Molina Dsouza MD LAB POCT ORDERABLE S - DEVICE Final Result Performing Organization Address [facility]/ZIP Co de Phone Number [facility] Department [place] [employer] [place] [address] * POCT glucose (06/30/2025 4:31 PM BISQUE GRADER) Glucose, POC 88 70 - 199 mg/dL Blood 06/30/2025 4:31 PM BISQUE GRADER 06/30/2025 4:31 PM BISQUE GRADER Molina Dsouza MD LAB POCT ORDERABLE S - DEVICE Final Result [facility] [place] [address] * HLA Donor Specific Antibody Report (06/30/2025 4:15 PM BISQUE GRADER) us Provider Scanning LAB BLOOD ORDERABLES Final Res ult * CT Heart Morphology W Contrast (06/30/2025 3:01 PM BISQUE GRADER) Anatomical Region Laterality Modality Chest N/A Computed Tomogra phy 06/30/2025 3:20 PM BISQUE GRADER Impressions 06/30/2025 4:51 PM BISQUE GRADER Left atrial enlargement without thrombus in the left atrial appendage. The Non Critical results were discussed with Dr. Padmini Sheridan by Dr. Nacho Rosa via telephone at the time of scan acquisition. Dictated by: Nacho Rosa M.D. The radiology attending physician has personally reviewed this study, and had reviewed and/or edited this written report and agrees with it. Electronically signed by: Marnie Shin M.D. Narrative 06/30/2025 4:51 PM BISQUE GRADER EXAMINATION: CTA THORACIC AORTA AND HEART MORPHOLOGY WITH AND WITHOUT CONTRAST History: Left atrial appendage thrombus evaluation Technique: CTA of the chest with heart morphology performed following the administration of 100 mL of Optiray 350, intravenously. Images were transferred to an independent workstation for additional 3D post-processing. FINDINGS: Heart: Left atrial enlargement. Left atrial appendage is free of thrombus. No cardiac mass or thrombus. The ventricles are normal in size. Mild coronary vascular calcifications. There is no pericardial effusion. Normal caliber thoracic aorta with mild calcific atherosclerosis. Other findings: 14 mm right lower lobe pulmonary nodule on table position -8.3 and 12 mm on -6.7 are unchanged. No new or enlarging pulmonary nodule. No pleural effusion or pneumothorax. No thoracic lymphadenopathy. The partially imaged upper abdomen demonstrates cirrhotic hepatic morphology with a hepatic dome cystic lesion and splenomegaly keeping with patient's known portal hypertension. Unchanged partial deformity is in the thoracic spine. No acute fracture or suspicious osseous lesion. Procedure Note Marnie Shin MD - 06/30/2025 EXAMINATION: CTA THORACIC AORTA AND HEART MORPHOLOGY WITH AND WITHOUT CONTRAST History: Left atrial appendage thrombus evaluation Technique: CTA of the chest with heart morphology performed following the administration of 100 mL of Optiray 350, intravenously. Images were transferred to an independent workstation for additional 3D post-processing. FINDINGS: Heart: Left atrial enlargement. Left atrial appendage is free of thrombus. No cardiac mass or thrombus. The ventricles are normal in size. Mild coronary vascular calcifications. There is no pericardial effusion. Normal caliber thoracic aorta with mild calcific atherosclerosis. Other findings: 14 mm right lower lobe pulmonary nodule on table position -8.3 and 12 mm on -2075.7 are unchanged. No new or enlarging pulmonary nodule. No pleural effusion or pneumothorax. No thoracic lymphadenopathy. The partially imaged upper abdomen demonstrates cirrhotic hepatic morphology with a hepatic dome cystic lesion and splenomegaly keeping with patient's known portal hypertension. Unchanged partial deformity is in the thoracic spine. No acute fracture or suspicious osseous lesion. IMPRESSION: Left atrial enlargement without thrombus in the left atrial appendage. The Non Critical results were discussed with Dr. Padmini Sheridan by Dr. Nacho Rosa via telephone at the time of scan acquisition. Dictated by: Nacho Rosa M.D. The radiology attending physician has personally reviewed this study, and had reviewed and/or edited this written report and agrees with it. Electronically signed by: Marnie Shin M.D. Molina Dsouza MD IMG CT PROCEDURES Final Result * TONE Add-On For OR (06/30/2025 2:10 PM BISQUE GRADER) BSA 2.22 m2 [facility] PROSOLV_CARDIORE PORT_CONS SCIMAGE Narrative [facility] PROSOLV_CARDIOREPORT_CONS SCIMAGE - 06/30/2025 2:10 PM BISQUE GRADER Procedure Auto Finalized by Rule: BW CV TONE DURING CASE OR Please see the Anesthesiologist's Procedure Note for the results. Carter Ortiz MD CV ECHO PROCEDURES Final Resul t Performing Organization Address City/State/[facility] Co de Phone Number [facility] PROSOLV_CARDIOREPORT_CONS SCIMAGE * POCT glucose (06/30/2025 2:02 PM BISQUE GRADER) Glucose, POC 86 70 - 199 mg/dL Blood 06/30/2025 2:02 PM BISQUE GRADER 06/30/2025 2:02 PM BISQUE GRADER Molina Dsouza MD LAB POCT ORDERABLE S - DEVICE Final Result [facility] Department [place] [address] * Prepare RBC: 8 Units (06/30/2025 1:56 PM BISQUE GRADER) Product code [id number] Unit Number [id number] CERNER [facility] Product Blood Type APOS CERNER BJ Dispense Status RETURNED CERNER BJ Product code [id number] CERNER BJ Unit Number [id number] I CERNER [facility] Product Blood Type APOS CERNER BJ Dispense Status RETURNED CERNER BJ Product code [id number] CERNER [facility] Unit Number [id number] CERNER BJ Product Blood Type APOS CERNER BJ Dispense Status RETURNED CERNER BJ Product code [id number] CERNER [facility] Unit Number [id number] M CERNER [facility] Product Blood Type APOS CERNER BJ Dispense Status RETURNED CERNER [facility] Product code [id number] CERNER [facility] Unit Number [id number] Y CERNER [facility] Product Blood Type APOS CERNER [facility] Dispense Status RETURNED CERNER [facility] Product code [id number] CERNER [facility] Unit Number [id number] D CERNER [facility] Product Blood Type APOS CERNER [facility] Dispense Status RETURNED CERNER [facility] Product code [id number] CERNER [facility] Unit Number [id number] CERNER [facility] Product Blood Type APOS CERNER BJ Dispense Status PRESUMED TRANSFUSED CERNER [facility] Product code [id number] CERNER [facility] Unit Number [id number] CERNER [facility] Product Blood Type APOS CERNER [facility] Dispense Status RETURNED CERNER [facility] Blood 06/30/2025 1:56 PM BISQUE GRADER 06/30/2025 1:55 PM BISQUE GRADER Narrative CERNER BJ - 07/03/2025 9:06 PM BISQUE GRADER Are special requirements needed? (All products are leukoreduced and CMV- safe)- >No Date required:-[id number] LRRBC # of [id number] Reasons:-Intra-op transfusion} us Ragini Johnson MD BLOOD BANK PRODUCT ORDERABLES Fi nal Result CHARISSA [facility] Department [place] [address] * TRANSTHORACIC ECHO (TTE) COMPLETE W DOPPLER/CF W CONTRAST (06/30/2025 1:28 PM BISQUE GRADER) EF Mod BP 75 % CONS SCIMAGE Anatomical Region Laterality Modality Ultrasound 06/30/2025 12:4 3 PM BISQUE GRADER Narrative 06/30/2025 1:47 PM BISQUE GRADER [facility] [place] [address] Transthoracic Echocardiographic Report Patient Name: NAEL CARDOZA J : 1960 (64y 6m) Sex: F Study Date: 06/30/2025 12:43:10 PM Ht(Inch): 67 Wt(Lb): 231.04 BSA: 2.15 Mill Helper: LOBO Diaz, [facility], [facility] Location: [id number] Order Provider: MOLINA DSOUZA Heart Rate: 132 BMI: 36.18 BP: 125 / 61 Ref Provider: MOLINA DSOUZA PROCEDURES: Echocardiographic Report: Transthoracic complete echo with strain imaging and contrast, 2D, spectral and tissue Doppler, color flow Doppler, M-mode. Contrast: Contrast Enhancement was Employed: After initial imaging due to sub- optimal quality related to co-morbidity defined by patient's body habitus and due to suboptimal image quality with inadequate visualization of at least 2 of 16 LV wall segments in any view after initial imaging. Perflutren contrast was administered using the volume necessary to obtain adequate images. 0.9 ml Optison Administered, (2.1 ml wasted). INDICATIONS: Pre non-cardiac procedure/surgery. CONCLUSIONS: 1. Normal left ventricular size based on volume index. Concentric LV hypertrophy. There is hyperdynamic left ventricular systolic function. The Ejection Fraction (Pitts's) is measured at 75 %. The average global longitudinal strain is abnormal. 2. Normal right ventricular size. Normal right ventricular systolic function. 3. The estimated right ventricular systolic pressure is 25 mmHg. 4. Rhythm is sinus tachycardia. ATTESTATION: I have personally reviewed and interpreted this study without fellow or resident. DISCLAIMER: The study images and the final report will be retained in the patient chart by the Echo Laboratory for the legally required time period. This chart constitutes the legal record of any testing performed. FINDINGS: Left Ventricle: Normal left ventricular size based on volume index. Concentric LV hypertrophy. There is hyperdynamic left ventricular systolic function. The Ejection Fraction (Pitts's) is measured at 75 %. The average global longitudinal strain is abnormal. The LV global strain is: -10.0 %. Right Ventricle: Normal right ventricular size. Normal right ventricular systolic function. Left Atrium: Mildly dilated left atrium. Right Atrium: The right atrium is normal in size. Mitral Valve: Normal mitral valve structure. No mitral regurgitation. No stenosis present. Aortic Valve: Normal trileaflet aortic valve. No aortic regurgitation. No aortic valve stenosis. The mean transaortic gradient is 5 mmHg. The aortic valve area by the continuity equation (using VTI) is 3.3 cm2. Aortic valve dimensionless index is 0.95. Tricuspid Valve: Normal Tricuspid valve structure. Mild tricuspid regurgitation. The estimated right ventricular systolic pressure is 25 mmHg. Pulmonic Valve: Normal pulmonic valve structure. No pulmonic regurgitation. No pulmonic valve stenosis present. Pericardium: Normal pericardium without pericardial effusion. Aorta: Normal aortic root size at sinuses of Valsalva. The ascending aorta is normal in size when indexed. IVC: The IVC was <2.1 cm and collapsibility <50%. (est. RA pressure 6-10 mmHg). PASP: Normal estimated pulmonary artery systolic pressure. Rhythm: The rhythm during the study was sinus tachycardia. MEASUREMENTS: 2D/MM Value Range Doppler Value Range LVIDd 2D 4.6 cm [ 3.8 - 5.2 ] AV Peak Louie 1.4 m/s [ 1.0 - 1.7 ] LVIDs 2D 2.9 cm [ 2.2 - 3.5 ] AV Peak PG 8 mmHg IVSd 2D 1.3 cm [ 0.6 - 0.9 ] AV Mean PG 5 mmHg LVPWd 2D 1.3 cm [ 0.6 - 0.9 ] AV VTI 21 cm LV Thickness Ratio 1.0 LVOT Peak Louie 1.2 m/s [ 0.7 - 1.1 ] LV FS 2D 36.52 % [ 27.00 - 45.00 ] LVOT Peak PG 6 mmHg LV Mass 2D 233.27 g LVOT Mean PG 4 mmHg LV Mass Index 2D 108.50 g/m2 LVOT VTI 20 cm RWT 0.57 LVOT Diam 2.1 cm EDV Mod BP 119 ml [ 46 - 106 ] ANNIE VTI 3.3 cm2 LV EDV Index 55 ml/m2 LVOT/AV VTI 0.95 - Dimensionless index (DVI) ESV Mod BP 30 ml [ 14 - 42 ] RV S` 13.7 cm/sec EF Mod BP 75 % [ 54 - 74 ] TR Peak Louie 2.2 m/s [ 1.0 - 2.8 ] LV GLS -10.0 % [ -25.0 - -18.0 ] TR Peak PG 19 mmHg LA Length 4C 6.6 cm PV Peak Louie 0.7 m/s [ 0.4 - 0.8 ] LA Length 2C 7.0 cm PV Peak PG 2 mmHg LA Volume BP 87 ml LA Volume Index 40 ml/m2 [ 16 - 34 ] RV Base Dimen 2D 3.4 cm [ 2.5 - 4.2 ] RV Mid Dimen 2D 2.6 cm RV ED Area 13 cm2 [ 8 - 20 ] RV ES Area 10 cm2 [ 3 - 11 ] RV FAC 23 % [ 35 - 63 ] TAPSE 1.8 cm [ 1.7 - 5.0 ] RA Volume 50 ml RA Volume Index 23 ml/m2 IVC Diam 2.0 cm IVC Collapse 20.4 % AoR Diam 2D 3.1 cm [ 2.7 - 3.3 ] Ao Root Index 1.4 cm/m2 [ 1.0 - 2.0 ] Asc Ao Diam 2D 2.8 cm Asc Ao Index 1.3 cm/m2 Electronically Signed By: Ellis Rosa MD 06/30/2025 1:46:00 PM BISQUE GRADER Procedure Note Ellis Rosa MD - 06/30/2025 [facility] [place] [address] Transthoracic Echocardiographic Report Patient Name: NAEL CARDOZA J : 1960 (64y 6m) Sex: F Study Date: 06/30/2025 12:43:10 PM Ht(Inch): 67 Wt(Lb): 231.04 BSA: 2.15 Mill Helper: Cesar Judd, ACS, [facility], [facility] Location: [id number] OrderProvider: MOLINA DSOUZA Heart Rate: 132 BMI: 36.18 BP: 125 / 61 Ref Provider: MOLINA DSOUZA PROCEDURES: Echocardiographic Report: Transthoracic complete echo with strain imagingand contrast, 2D, spectral and tissue Doppler, color flow Doppler, M-mode. Contrast: Contrast Enhancement was Employed: After initial imaging due tosub- optimal quality related to co-morbidity defined by patient's body habitus and dueto suboptimal image quality with inadequate visualization of at least 2 of 16 LV wallsegments in any view after initial imaging. Perflutren contrast was administered using thevolume necessary to obtain adequate images. 0.9 ml Optison Administered, (2.1 mlwasted). INDICATIONS: Pre non-cardiac procedure/surgery. CONCLUSIONS: 1. Normal left ventricular size based on volume index. Concentric LVhypertrophy. There is hyperdynamic left ventricular systolic function. The Ejection Fraction(Pitts's) is measured at 75 %. The average global longitudinal strain is abnormal. 2. Normal right ventricular size. Normal right ventricular systolicfunction. 3. The estimated right ventricular systolic pressure is 25 mmHg. 4. Rhythm is sinus tachycardia. ATTESTATION: I have personally reviewed and interpreted this study without fellow orresident. DISCLAIMER: The study images and the final report will be retained in the patientchart by the Echo Laboratory for the legally required time period. This chart constitutesthe legal record of any testing performed. FINDINGS: Left Ventricle: Normal left ventricular size based on volume index.Concentric LV hypertrophy. There is hyperdynamic left ventricular systolic function. TheEjection Fraction (Pitts's) is measured at 75 %. The average global longitudinalstrain is abnormal. The LV global strain is: -10.0 %. Right Ventricle: Normal right ventricular size. Normal right ventricularsystolic function. Left Atrium: Mildly dilated left atrium. Right Atrium: The right atrium is normal in size. Mitral Valve: Normal mitral valve structure. No mitral regurgitation. Nostenosis present. Aortic Valve: Normal trileaflet aortic valve. No aortic regurgitation. Noaortic valve stenosis. The mean transaortic gradient is 5 mmHg. The aortic valve areaby the continuity equation (using VTI) is 3.3 cm2. Aortic valve dimensionlessindex is 0.95. Tricuspid Valve: Normal Tricuspid valve structure. Mild tricuspidregurgitation. The estimated right ventricular systolic pressure is 25 mmHg. Pulmonic Valve: Normal pulmonic valve structure. No pulmonicregurgitation. No pulmonic valve stenosis present. Pericardium: Normal pericardium without pericardial effusion. Aorta: Normal aortic root size at sinuses of Valsalva. The ascending aortais normal in size when indexed. IVC: The IVC was <2.1 cm and collapsibility <50%. (est. RA pressure 6-10mmHg). PASP: Normal estimated pulmonary artery systolic pressure. Rhythm: The rhythm during the study was sinus tachycardia. MEASUREMENTS: 2D/MM Value Range DopplerValue Range LVIDd 2D 4.6 cm [ 3.8 - 5.2 ] AV Peak Vel1.4 m/s [ 1.0 - 1.7 ] LVIDs 2D 2.9 cm [ 2.2 - 3.5 ] AV Peak PG8 mmHg IVSd 2D 1.3 cm [ 0.6 - 0.9 ] AV Mean PG5 mmHg LVPWd 2D 1.3 cm [ 0.6 - 0.9 ] AV VTI21 cm LV Thickness Ratio 1.0 LVOT Peak Vel1.2 m/s [ 0.7 - 1.1 ] LV FS 2D 36.52 % [ 27.00 - 45.00 ] LVOT Peak PG6 mmHg LV Mass 2D 233.27 g LVOT Mean PG4 mmHg LV Mass Index 2D 108.50 g/m2 LVOT VTI20 cm RWT 0.57 LVOT Diam2.1 cm EDV Mod BP 119 ml [ 46 - 106 ] ANNIE VTI3.3 cm2 LV EDV Index 55 ml/m2 LVOT/AV VTI0.95 - Dimensionless index (DVI) ESV Mod BP 30 ml [ 14 - 42 ] RV S`13.7 cm/sec EF Mod BP 75 % [ 54 - 74 ] TR Peak Vel2.2 m/s [ 1.0 - 2.8 ] LV GLS -10.0 % [ -25.0 - -18.0 ] TR Peak PG19 mmHg LA Length 4C 6.6 cm PV Peak Vel0.7 m/s [ 0.4 - 0.8 ] LA Length 2C 7.0 cm PV Peak PG2 mmHg LA Volume BP87 ml LA Volume Index 40 ml/m2 [ 16 - 34 ] RV Base Dimen 2D 3.4 cm [ 2.5 - 4.2 ] RV Mid Dimen 2D2.6 cm RV ED Area 13 cm2 [ 8 - 20 ] RV ES Area 10 cm2 [ 3 - 11 ] RV FAC 23 % [ 35 - 63 ] TAPSE 1.8 cm [ 1.7 - 5.0 ] RA Pyyacv33 ml RA Volume Index23 ml/m2 IVC Diam2.0 cm IVC Collapse 20.4 % AoR Diam 2D 3.1 cm [ 2.7 - 3.3 ] Ao Root Index 1.4 cm/m2 [ 1.0 - 2.0 ] Asc Ao Diam 2D2.8 cm Asc Ao Index1.3 cm/m2 Electronically Signed By: Ellis Rosa MD 06/30/2025 1:46:00 PM BISQUE GRADER us Molina Dsouza MD CV ECHO PROCEDURES Final Result * POCT glucose (06/30/2025 11:53 AM BISQUE GRADER) Glucose, POC 89 70 - 199 mg/dL Blood 06/30/2025 11:5 3 AM BISQUE GRADER 06/30/2025 11:53 AM BISQUE GRADER us Molina Dsozua MD LAB POCT ORDERABLE S - DEVICE Final Result Performing Organization Address [facility] de Phone Number [facility] Department [place] [address] * POCT glucose (06/30/2025 7:57 AM BISQUE GRADER) Glucose, POC 94 70 - 199 mg/dL Blood 06/30/2025 7:57 AM BISQUE GRADER 06/30/2025 7:57 AM BISQUE GRADER us Molina Dsouza MD LAB POCT ORDERABLE S - DEVICE Final Result Performing Organization Address City/[facility] Co de Phone Number [facility] Department [place] [employer] [place] [address] * HLA Antibody Screen by PRA or SAB per Schedule (Class I and Class II) (06/30/2025 1:40 AM BISQUE GRADER) Blood 06/30/2025 1:40 AM BISQUE GRADER Narrative [facility] - BISQUE GRADER Sample received in lab. Single Antigen Antibody Screen ordered. us Molina Dsouza MD LAB BLOOD ORDERABL ES Final Result [facility] * HLA Antibody Screen - SAB (Class I and Class II) (06/30/2025 1:40 AM BISQUE GRADER) Class I Treatment EDTA [facility] Class I Dilution 1:1 [facility] Class I Tested Date 06/30/2025 [facility] Class I Result Negative [facility] Class I CPRA 62 [facility]OT[facility] Class I Increased Risk Bw4 [facility] Class I Low Risk A23; B45, B51, B57 [facility]OT[facility] Class I Reportable Comments Bw4 pattern present. [facility]ISTOT[facility]AC Class II Treatment EDTA [facility]OT[facility]AC Class II Dilution 1:1 [facility]OT[facility] Class II Tested Date 06/30/2025 HISTOTRAC Class II Result Positive [facility]OT[facility] Class II CPRA 43 H[facility]OT[facility]AC Class II Increased Risk DR9 [facility]OT[facility] Class II Moderate Risk DR51; DPB1*01:01 [facility]ISTOTRAC Class II Low Risk DR9 H[facility]OT[facility]AC 06/30/2025 1:40 AM BISQUE GRADER 06/30/2025 4:08 PM BISQUE GRADER Narrative [facility] - 06/30/2025 4:08 PM BISQUE GRADER Single-antigen HLA antibody screen is performed on serum samples using a method developed and validated by the [facility] HLA laboratory based on an FDA-approved IVD kit (LABScreen Single-Antigen, [employer], [place], [place]). All patient serum samples are pretreated with EDTA before the screen to prevent complement interference. Additional serum treatments, such as adsorption and DTT treatment, may be performed as indicated. Interpretive comments: Low risk: MFI [id number]. Moderate risk: MFI [id number]. Increased risk: MFI >/= 5000. The presence [...] antigens to avoid. Testing performed at the [facility], [address] [place] [address], 5[address] floor, [place], [address]. CLIA # [id number]. Rani Smith, Ph.D., Case Picker, HLA Laboratory Aurelio Palafox M.D., Ph.D., Editor Greeting Card, HLA Laboratory Norma Talamantes, Ph.D., CLIA Editor Greeting Card, [facility] Current methodology and interpretive comments last revised on 09/06/2022. us Molina Dsouza MD LAB BLOOD ORDERABL ES Final Result [facility] * COVID-19 Coronavirus RNA Nasopharyngeal (06/30/2025 12:43 AM BISQUE GRADER) Pathologist [facility] COVID-19 RNA Negative Negative [facility] Nasopharyngeal 06/30/2025 12 :43 AM BISQUE GRADER 06/30/2025 1:29 AM BISQUE GRADER Diane CARRINGTON [facility] - 06/30/2025 2:35 AM BISQUE GRADER Is the patient experiencing any symptoms consistent with COVID (eg. Fever, cough, shortness of breath)?->No What is the reason for testing?->Screening prior to urgent surgery, procedure, delivery, transplant, immune suppressive therapy Interpretive data Testing performed by [facility] ([phone]). This test is performed using the [employer] Xpert Xpress CoV-2 plus assay. This is a real-time RT-PCR test intended for the qualitative detection of nucleic acid from the SARS-CoV-2. This assay has been cleared by the [place] Food and Drug administration. The performance characteristics have been verified by the [facility]. Results must be considered in the clinical context, and a negative result does not rule out infection. Interpretive data last revised 2024. Interpretive data Testing performed by [facility] ([phone]). This test is performed using the [employer] Xpert Xpress CoV-2 plus assay. This is a real-time RT-PCR test intended for the qualitative detection of nucleic acid from the SARS-CoV-2. This assay has been cleared by the [facility] Food and Drug administration. The performance characteristics have been verified by the [facility]. Results must be considered in the clinical context, and a negative result does not rule out infection. Interpretive data last revised 2024. Molina Dsouza MD LAB MICROBIOLOGY - GENERAL ORDERABLES Final Result Performing Organization Address City/[facility]/ZIP Co de Phone Number [facility] Department [place] [address] BJ * (ABNORMAL) Sepsis Lactate w/ Reflex (06/30/2025 12:43 AM BISQUE GRADER) [facility] Sepsis Lactate 2.6(H) 0.7 - 2.0 mmol/L Blood 06/30/2025 12:4 3 AM BISQUE GRADER 06/30/2025 1:26 AM BISQUE GRADER Najma Pires MD LAB BLOOD ORDERABLES Final Result [facility] [place] [address] * Collection Task for HLA Antibody Screen (06/30/2025 12:43 AM BISQUE GRADER) [facility] HLA Antibody Screen by PRA Received Blood 06/30/2025 12:4 3 AM BISQUE GRADER 06/30/2025 8:36 AM BISQUE GRADER us Molina Dsouza MD LAB BLOOD ORDERABL ES Final Result [facility] [place] [address] * Collection Task for HLA Antibody Screen (06/30/2025 12:43 AM BISQUE GRADER) HLA Antibody Screen by PRA Received Blood 06/30/2025 12:4 3 AM BISQUE GRADER 06/30/2025 8:36 AM BISQUE GRADER us Molina Dsouza MD LAB BLOOD ORDERABL ES Final Result Performing Organization Address [facility] Co de Phone Number [facility] [place] [address] * (ABNORMAL) eGFR (06/30/2025 12:43 AM BISQUE GRADER) Pathologist [facility] eGFR 23(L) >=60 mL/min/1. 73 m2 Comment: [...] interpretive data was last reviewed 2021. Blood 06/30/2025 12:4 3 AM BISQUE GRADER 06/30/2025 1:31 AM BISQUE GRADER us Molina Dsouza MD LAB BLOOD ORDERABL ES Final Result [facility] Department [place] [address] * (ABNORMAL) Differential, auto (06/30/2025 12:43 AM BISQUE GRADER) Neutrophil abs 3.89 1.50 - 6.50 K/cumm Imm gran abs 0.03 0.00 - 0.10 K/cumm CERNER [facility] Lymphocyte abs 1.02 0.80 - 3.30 K/cumm CERNER [facility] Monocyte abs 0.62 0.20 - 0.80 K/cumm CERNER [facility] Eosinophil abs 0.61(H) 0.00 - 0.50 K/cumm [facility] Basophil abs 0.04 0.00 - 0.10 K/cumm [facility] Neutrophil pct 62.7 % [facility] Comment: Interpretive Data [...] was last revised on 2017. Lymphocyte pct 16.4 % [facility] Comment: Interpretive Data Percent cell count reference ranges are not reported, since discordance with absolute values may lead to misinterpretation of CBC data. Current Interpretive Data was last revised on 2017. Monocyte pct 10.0 % [facility] Comment: Interpretive Data Percent cell count reference ranges are not reported, since discordance with absolute values may lead to misinterpretation of CBC data. Current Interpretive Data was last revised on 2017. Eosinophil pct 9.8 % [facility] Comment: Interpretive Data Percent cell count reference ranges are not reported, since discordance with absolute values may lead to misinterpretation of CBC data. Current Interpretive Data was last revised on 2017. Basophil pct 0.6 % [facility] Comment: Interpretive Data Percent cell count reference ranges are not reported, since discordance with absolute values may lead to misinterpretation of CBC data. Current Interpretive Data was last revised on 2017. Blood 06/30/2025 12:4 3 AM BISQUE GRADER 06/30/2025 1:32 AM BISQUE GRADER us Molina Dsouza MD LAB BLOOD ORDERABL ES Final Result Performing Organization Address [facility] de Phone Number [facility] Department [place] [address] * (ABNORMAL) Iron profile w/ IBC (06/30/2025 12:43 AM BISQUE GRADER) Pathologist [facility] Iron 21(L) 35 - 145 mcg/dL TIBC 222(L) 250 - 400 mcg/dL [facility] Transferrin saturation 9(L) 20 - 50 % [facility] Blood 06/30/2025 12:4 3 AM BISQUE GRADER 06/30/2025 1:31 AM BISQUE GRADER us Molina Dsouza MD LAB BLOOD ORDERABL ES Final Result Performing Organization Address [facility] de Phone Number [facility] Department [place] [address] * HIV 1/2 Antibody plus p24 Antigen Blood (06/30/2025 12:43 AM BISQUE GRADER) Pathologist [facility] HIV 1/2 ab + p24 ag Nonreactive Nonreactive Comment:Nonreactive for HIV- 1 antigen and HIV-1/HIV-2 antibodies. No laboratory evidence of HIV infection. If acute HIV infection is suspected, consider testing for HIV-1 RNA. Current interpretive data was last revised on 22. Blood 06/30/2025 12:4 3 AM BISQUE GRADER 06/30/2025 1:31 AM BISQUE GRADER us Molina Dsouza MD LAB MICROBIOLOGY - GENERAL ORDERABLES Final Result Performing Organization Address [facility]/ZIP Co de Phone Number [facility] Department [place] [address] * (ABNORMAL) CBC with auto differential (06/30/2025 12:43 AM BISQUE GRADER) [facility] WBC 6.21 3.80 - 9.90 K/cumm Hgb 9.3(L) 11.9 - 15.5 g/dL [facility] Hct 27.6(L) 35.6 - 45.5 % [facility] Plt 101(L) 150 - 400 K/cumm [facility] MPV 11.7 9.1 - 12.3 fL [facility] RBC 3.40(L) 3.90 - 5.20 M/cumm [facility] MCV 81.2(L) 81.3 - 96.4 fL [facility] MCH 27.4 27.1 - 33.3 pg [facility] MCHC 33.7 32.3 - 35.7 g/dL [facility] RDW CV 15.6(H) 11.1 - 14.9 % [facility] RDW SD 45.6 35.7 - 48.1 fL [facility] NRBC abs 0.00 0.00 - 0.01 K/cumm [facility] Blood 06/30/2025 12:4 3 AM BISQUE GRADER 06/30/2025 1:32 AM BISQUE GRADER Molina Dsouza MD LAB BLOOD ORDERABL ES Final Result [facility] Department [place] [address] * Hepatitis C antibody Blood (06/30/2025 12:43 AM BISQUE GRADER) [facility] Hep C Ab Nonreactive Nonreactive Comment:Antibodies to HCV no t detected. Does NOT exclude the possibility of recent exposure to HCV. Current interpretive data was last revised on 22 Blood 06/30/2025 12:4 3 AM BISQUE GRADER 06/30/2025 1:31 AM BISQUE GRADER Molina Dsouza MD LAB MICROBIOLOGY - GENERAL ORDERABLES Final Result Performing Organization Address [facility] Co de Phone Number CHARISSA [facility] Department [place] [address] * [id number], Tumor Marker (06/30/2025 12:43 AM BISQUE GRADER) alpha Fetoprotein <2.0 <=8.3 ng/mL Comment: Interpretive [...] 2018;[id number] Katya V. et al. Clin Chem 2014;[id number]. Current interpretive data was last revised 2022. Blood 06/30/2025 12:4 3 AM BISQUE GRADER 06/30/2025 1:31 AM BISQUE GRADER Narrative [facility] - 06/30/2025 2:12 AM BISQUE GRADER This lab is to be ordered for patients with a diagnosis of Hepatocellular carcinoma (HCC). Molina Dsouza MD LAB BLOOD ORDERABL ES Final Result Performing Organization Address City/[facility]/ZIP Co de Phone Number CHARISSA DUNNE [facility] Department [place] [employer] [place] [address] * Hepatitis B core antibody, total Blood (06/30/2025 12:43 AM BISQUE GRADER) Hep B core IgG/IgM Nonreactive Nonreactive Blood 06/30/2025 12:4 3 AM BISQUE GRADER 06/30/2025 1:31 AM BISQUE GRADER us Molina Dsouza MD LAB MICROBIOLOGY - GENERAL ORDERABLES Final Result Performing Organization Address [facility] Co de Phone Number CHARISSA [facility] [place] [address] * Hepatitis C (HCV) RNA PCR, quantitative Blood (06/30/2025 12:43 AM BISQUE GRADER) [facility] HCV RNA result Not Detected [facility] Comment: The quantifiable range of this assay is 15 IU/mL to 100,000,000 IU/mL (1.18 log IU/mL to 8.00 log IU/mL). Testing was performed by the VIANCA 6800 HCV Test ([employer] Testing performed at [facility] Current Interpretive Data was last revised on 2021 Blood 06/30/2025 12:4 3 AM BISQUE GRADER 06/30/2025 1:37 AM BISQUE GRADER us Molina Dsouza MD LAB MICROBIOLOGY - GENERAL ORDERABLES Final Result Performing Organization Address [facility] de Phone Number CHARISSA [facility] Department [place] [address] [facility] * Hepatitis B surface antibody (immune status) Blood (06/30/2025 12:43 AM BISQUE GRADER) [facility] HBsAb (immune status) Nonreactive Comment:This result is consi stent with a lack of immunity to Hepatitis B Virus when used in the setting of routine screening. Current interpretative data was last revised on 22 Blood 06/30/2025 12:4 3 AM BISQUE GRADER 06/30/2025 1:31 AM BISQUE GRADER us Molina Dsouza MD LAB MICROBIOLOGY - GENERAL ORDERABLES Final Result Performing Organization Address City/[facility] Co de Phone Number CHARISSA [facility] Department [place] [address] * Hepatitis B Surface Antigen Blood (06/30/2025 12:43 AM BISQUE GRADER) HepBsAg Nonreactive Nonreactive Blood 06/30/2025 12:4 3 AM BISQUE GRADER 06/30/2025 1:31 AM BISQUE GRADER Molina Dsouza MD LAB MICROBIOLOGY - GENERAL ORDERABLES Final Result Performing Organization Address [facility] Co de Phone Number [facility] [place] [address] * aPTT (06/30/2025 12:43 AM BISQUE GRADER) aPTT 29 26 - 38 sec Comment: Interpretive Data Heparin therapeutic range: 66.0 - 100.0 seconds. Range based on correlation with therapeutic heparin activity range of 0.3 - 0.7 Units/mL. Blood 06/30/2025 12:4 3 AM BISQUE GRADER 06/30/2025 1:49 AM BISQUE GRADER Molina Dsouza MD LAB BLOOD ORDERABL ES Final Result Performing Organization Address [facility] de Phone Number [facility] Department [place] [address] * (ABNORMAL) Protime-INR (06/30/2025 12:43 AM BISQUE GRADER) PT 18.5(H) 10.2 - 13.5 sec INR 1.65(H) 0.90 - 1.20 [facility] Comment: Interpretive data Oral anticoagulant therapeutic ranges: Venous thromboembolism prophylaxis or treatment: 2.0-3.0 CARDIOLOGY Standard range: 2.0-3.0 High-intensity range: 2.5-3.5 Refer to indication-specific guidelines for appropriate target ranges for prosthetic heart valve replacement. Current interpretive data was last revised on 2019. Blood 06/30/2025 12:4 3 AM BISQUE GRADER 06/30/2025 1:49 AM BISQUE GRADER us Molina Dsouza MD LAB BLOOD ORDERABL ES Final Result Performing Organization Address [facility] de Phone Number [facility] [place] [address] * Fibrinogen (06/30/2025 12:43 AM BISQUE GRADER) Fibrinogen 221 170 - 400 mg/dL Blood 06/30/2025 12:4 3 AM BISQUE GRADER 06/30/2025 1:49 AM BISQUE GRADER us Molina Dsouza MD LAB BLOOD ORDERABL ES Final Result Performing Organization Address [facility] Phone Number [facility] [place] [address] * Type and screen (06/30/2025 12:43 AM BISQUE GRADER) Rosemarie, indirect Negative ABO Rh A Positive [facility] Blood 06/30/2025 12:4 3 AM BISQUE GRADER 06/30/2025 1:41 AM BISQUE GRADER Narrative [facility] - 06/30/2025 2:29 AM BISQUE GRADER Has the patient had Daratumumab or Isatuximab in the past 6 months?->Unknown us Molina Dsouza MD LAB BLOOD BANK BLANCA T ORDERABLES Final Result Performing Organization Address [facility] [place] [address] * (ABNORMAL) Bilirubin, total and direct (06/30/2025 12:43 AM BISQUE GRADER) Bilirubin, total 1.9(H) 0.1 - 1.2 mg/dL Bilirubin, direct 0.8(H) 0.1 - 0.3 mg/dL [facility] Blood 06/30/2025 12:4 3 AM BISQUE GRADER 06/30/2025 1:31 AM BISQUE GRADER us Molina Dsouza MD LAB BLOOD ORDERABL ES Final Result Performing Organization Address [facility] Co de Phone Number [facility] [place] [address] * (ABNORMAL) Uric acid (06/30/2025 12:43 AM BISQUE GRADER) Uric acid 17.4(H) 2.5 - 7.0 mg/dL Blood 06/30/2025 12:4 3 AM BISQUE GRADER 06/30/2025 1:31 AM BISQUE GRADER us Molina Dsouza MD LAB BLOOD ORDERABL ES Final Result Performing Organization Address [facility] de Phone Number [facility] [place] [employer] [place] [address] * Phosphorus (06/30/2025 12:43 AM BISQUE GRADER) Phosphorus, pl 2.4 2.3 - 4.5 mg/dL Blood 06/30/2025 12:4 3 AM BISQUE GRADER 06/30/2025 1:31 AM BISQUE GRADER us Molina Dsouza MD LAB BLOOD ORDERABL ES Final Result Performing Organization Address [facility] [place] [address] * Gamma GT (06/30/2025 12:43 AM BISQUE GRADER) GGT 32 5 - 35 Units/L Blood 06/30/2025 12:4 3 AM BISQUE GRADER 06/30/2025 1:31 AM BISQUE GRADER us Molina Dsouza MD LAB BLOOD ORDERABL ES Final Result Performing Organization Address City/[facility] Co de Phone Number [facility] Department [place] [address] * Ferritin (06/30/2025 12:43 AM BISQUE GRADER) Ferritin 34 13 - 150 ng/mL Blood 06/30/2025 12:4 3 AM BISQUE GRADER 06/30/2025 1:31 AM BISQUE GRADER Molina Dsouza MD LAB BLOOD ORDERABL ES Final Result Performing Organization Address [facility] de Phone Number [facility] Department [place] [address] * (ABNORMAL) Lipid panel (06/30/2025 12:43 AM BISQUE GRADER) Cholesterol 73 30 - 199 mg/dL Comment: Interpretive Data [...] Data was last revised on 2018. Triglycerides 55 <=149 mg/dL [facility] Comment: Interpretive Data Ages < or [...] Data was last revised on 2018. HDL 31(L) >=40 mg/dL CHARISSA [facility] Comment: Interpretive Data Ages < [...] was last revised on 2018. LDL, calculated 28 <=129 mg/dL CHARISSA [facility] Comment: Interpretive Data Ages < [...] was last revised on 2024. Non-HDL Cholesterol 42 mg/dL [facility] Comment: Interpretive Data Ages < [...] last revised on 2018. Chol/HDL ratio 2 [facility] Blood 06/30/2025 12:4 3 AM BISQUE GRADER 06/30/2025 1:31 AM BISQUE GRADER us Molina Dsouza MD LAB BLOOD ORDERABL ES Final Result [facility] Department [place] [address] * (ABNORMAL) Comprehensive metabolic panel (06/30/2025 12:43 AM BISQUE GRADER) Sodium 131(L) 135 - 145 mmol/L Potassium, pl 2.9(L) 3.3 - 4.9 mmol/L [facility] Chloride 92(L) 97 - 110 mmol/L [facility] CO2 24 22 - 32 mmol/L [facility] Anion gap 15 2 - 15 mmol/L [facility] BUN 47(H) 6 - 25 mg/dL [facility] Creatinine 2.33(H) 0.60 - 1.10 mg/dL [facility] Glucose 95 70 - 199 mg/dL [facility] [...] interpretive data was last revised 2022. Calcium 9.4 8.5 - 10.3 mg/dL [facility] Bilirubin, total 1.9(H) 0.1 - 1.2 mg/dL [facility] Protein, pl 6.6 6.5 - 8.5 g/dL [facility] Albumin 4.0 3.5 - 5.0 g/dL [facility] Alk phos 56 40 - 130 Units/L [facility] ALT 15 7 - 45 Units/L [facility] AST 31 10 - 45 Units/L [facility] Blood 06/30/2025 12:4 3 AM BISQUE GRADER 06/30/2025 1:31 AM BISQUE GRADER Molina Dsouza MD LAB BLOOD ORDERABL ES Final Result [facility] Department [place] [address] * X-ray chest 1 view (06/29/2025 11:36 PM BISQUE GRADER) Anatomical Region Laterality Modality Body, Chest N/A Digital Radiogra phy 06/30/2025 9:03 AM BISQUE GRADER Impressions 06/30/2025 1:40 PM BISQUE GRADER Comparison is made to prior from 06/28/2025 at 10:20 PM. No pulmonary consolidation, pleural effusion, or pneumothorax. Stable cardiomediastinal silhouette. Dictated by: Juan José Vaughn M.D. The radiology attending physician has personally reviewed this study, and had reviewed and/or edited this written report and agrees with it. Electronically signed by: Mohinder Fraser M.D. Narrative 06/30/2025 1:40 PM BISQUE GRADER EXAMINATION: 1 view chest radiograph Procedure Note Mohinder Fraser MD - 06/30/2025 EXAMINATION: 1 view chest radiograph IMPRESSION: Comparison is made to prior from 06/28/2025 at 10:20 PM. No pulmonary consolidation, pleural effusion, or pneumothorax. Stable cardiomediastinal silhouette. Dictated by: Juan José Vaughn M.D. The radiology attending physician has personally reviewed this study, and had reviewed and/or edited this written report and agrees with it. Electronically signed by: Mohinder Fraser M.D. Molina Dsouza MD IMG XR PROCEDURES Final Result * HLA Virtual Crossmatch Recipient Report (06/29/2025 10:51 PM BISQUE GRADER) Cristian Martins MD LAB BLOOD ORDERABLES Final R esult * Prepare RBC: 8 Units (06/29/2025 10:48 PM BISQUE GRADER) Pathologist [facility] Product code K0701Q53 [facility] Unit Number [id number] 3-[id number] [facility] Product Blood Type APOS [facility]ER [facility] Dispense Status RETURNED [facility] Product code Q5942R80 [facility] Unit Number [id number] 6-1 [facility] Product Blood Type APOS CERNER [facility] Dispense Status RETURNED [facility] Product code X5085X23 CERNER [facility] Unit Number [id number] 3-9 [facility] Product Blood Type APOS CERNER [facility] Dispense Status RETURNED [facility] Product code K7760T52 [facility] Unit Number [id number] 7-W [facility] Product Blood Type APOS CERNER [facility] Dispense Status RETURNED [facility] Product code P1348L20 [facility] Unit Number [id number] 4-R [facility] Product Blood Type ANEG CERNER [facility] Dispense Status RETURNED [facility] Product code E4708X73 [facility]ER [facility] Unit Number [id number] 6-A [facility] Product Blood Type ANEG CERNER [facility] Dispense Status RETURNED [facility] Product code M2180Z98 CERNER [facility] Unit Number [id number] 3-J CERNER [facility] Product Blood Type ANEG CERNER [facility] Dispense Status RETURNED [facility] Product code L0824C98 Unit Number [id number] 4-6 [facility] Product Blood Type ANEG C[facility]ER [facility] Dispense Status RETURNED [facility] Blood 06/29/2025 10:4 8 PM BISQUE GRADER 06/29/2025 11:04 PM BISQUE GRADER Narrative [facility] - 07/01/2025 1:15 PM BISQUE GRADER Specify Procedure:->OR liver kidney transplant Are special requirements needed? (All products are leukoreduced and CMV- safe)- >No Date required:-[id number] LRRBC # of [id number] Reasons:-Hold for procedure (specify procedure)} Molina Dsouza MD BLOOD BANK PRODUCT ORDERABLES Final Result [facility] Department [place] [address] * (ABNORMAL) Differential, auto (06/29/2025 10:41 PM BISQUE GRADER) Neutrophil abs 3.84 1.50 - 6.50 K/cumm Imm gran abs 0.03 0.00 - 0.10 K/cumm [facility] Lymphocyte abs 1.05 0.80 - 3.30 K/cumm [facility] Monocyte abs 0.77 0.20 - 0.80 K/cumm [facility] Eosinophil abs 0.53(H) 0.00 - 0.50 K/cumm [facility] Basophil abs 0.02 0.00 - 0.10 K/cumm [facility] Neutrophil pct 61.6 % [facility] Comment: Interpretive Data [...] was last revised on 2017. Lymphocyte pct 16.8 % [facility] Comment: Interpretive Data [...] was last revised on 2017. Eosinophil pct 8.5 % [facility] Comment: Interpretive Data [...] Data was last revised on 2017. Blood 06/29/2025 10:4 1 PM BISQUE GRADER 06/29/2025 11:26 PM BISQUE GRADER Najma Pires MD LAB BLOOD ORDERABLES Final Result [facility] Department [place] [address] * (ABNORMAL) CBC with auto differential (06/29/2025 10:41 PM BISQUE GRADER) WBC 6.24 3.80 - 9.90 K/cumm Hgb 9.0(L) 11.9 - 15.5 g/dL [facility] Comment:Consistent with hist orical value. Hct 27.5(L) 35.6 - 45.5 % [facility] Plt 96(L) 150 - 400 K/cumm [facility] MPV 10.7 9.1 - 12.3 fL [facility] RBC 3.33(L) 3.90 - 5.20 M/cumm [facility] MCV 82.6 81.3 - 96.4 fL [facility] MCH 27.0(L) 27.1 - 33.3 pg [facility] MCHC 32.7 32.3 - 35.7 g/dL [facility] RDW CV 15.7(H) 11.1 - 14.9 % [facility] RDW SD 47.0 35.7 - 48.1 fL [facility] NRBC abs 0.00 0.00 - 0.01 K/cumm [facility] Blood 06/29/2025 10:4 1 PM BISQUE GRADER 06/29/2025 11:26 PM BISQUE GRADER Najma Pires MD LAB BLOOD ORDERABLES Final Result Performing Organization Address City/[facility]/ZIP Co de Phone Number [facility] [place] [address] * Phosphorus (06/29/2025 10:41 PM BISQUE GRADER) Pathologist [facility] Phosphorus, pl 2.4 2.3 - 4.5 mg/dL Blood 06/29/2025 10:4 1 PM BISQUE GRADER 06/29/2025 11:25 PM BISQUE GRADER Najma Pires MD LAB BLOOD ORDERABLES Final Result Performing Organization Address [facility] Co de Phone Number [facility] [place] [address] * Magnesium (06/29/2025 10:41 PM BISQUE GRADER) [facility] Magnesium 1.8 1.4 - 2.5 mg/dL Blood 06/29/2025 10:4 1 PM BISQUE GRADER 06/29/2025 11:25 PM BISQUE GRADER Najma Pires MD LAB BLOOD ORDERABLES Final Result Performing Organization Address [facility] Co de Phone Number [facility] Department [place] [address] * (ABNORMAL) Hepatic function panel (06/29/2025 10:41 PM BISQUE GRADER) Pathologist [facility] Bilirubin, total 1.9(H) 0.1 - 1.2 mg/dL Bilirubin, direct 0.8(H) 0.1 - 0.3 mg/dL [facility] Protein, pl 6.4(L) 6.5 - 8.5 g/dL [facility] Albumin 3.9 3.5 - 5.0 g/dL [facility] Alk phos 54 40 - 130 Units/L [facility] ALT 15 7 - 45 Units/L [facility] AST 30 10 - 45 Units/L [facility] Blood 06/29/2025 10:4 1 PM BISQUE GRADER 06/29/2025 11:25 PM BISQUE GRADER Najma Pires MD LAB BLOOD ORDERABLES Final Result Performing Organization Address City/[facility] Co de Phone Number [facility] Department [place] [address] * Infection Prevention MRSA Only (Staphylococcus aureus) PCR Nasal (06/29/2025 9:25 PM BISQUE GRADER) Pathologist [facility] PCR Scrn, Methicillin resistant Staphylococcus aureus (MRSA) Not Detected Not Detected [facility] Comment: Testing performed using Nucleic Acid Amplification with the [employer] Xpert MRSA NxG Assay. This assay detects target DNA from mecA, mecC and the SCCmec insertion site of Staphylococcus aureus using Real-Time PCR and has been cleared by the FDA. Performance characteristics have been verified by the [facility]. Nasal 06/29/2025 9:25 PM BISQUE GRADER 06/29/2025 10:33 PM BISQUE GRADER Swapnil Cisneros MD LAB MICROBIOLOGY - GENE RAL ORDERABLES Final Result Performing Organization Address [facility] Co de Phone Number [facility] Department [place] [address] [facility] * POCT glucose (06/29/2025 7:48 PM BISQUE GRADER) [facility] Glucose, POC 104 70 - 199 mg/dL Blood 06/29/2025 7:48 PM BISQUE GRADER 06/29/2025 7:48 PM BISQUE GRADER Najma Pires MD LAB POCT ORDERABLES - DEVIC E Final Result Performing Organization Address City/[facility] Co de Phone Number [facility] Department [place] [address] * ECG 12 lead (06/29/2025 6:03 PM BISQUE GRADER) [facility] Ventricular Rate EKG/Min 134 BPM [facility] Atrial Rate 134 BPM [facility] OH-Interval (MSEC) 176 ms [facility] QRS-Interval (MSEC) 160 ms [facility] QT-Interval (MSEC) 402 ms [facility] QTc 600 ms [facility] P [place] 91 degrees [facility] R [place] 65 degrees [facility] T [place] 94 degrees [facility] Diagnosis Sinus tachycardia Right bundle branch block T wave abnormality, consider inferior ischemia Abnormal ECG No previous ECGs available Confirmed by GREGORIA SALGUERO M.D ([id number]) on 07/06/2025 5:56:39 PM [facility] 06/29/2025 6:03 PM BISQUE GRADER 07/06/2025 5:56 PM BISQUE GRADER Molina Dsouza MD ECG ORDERABLES Fi nal Result Performing Organization Address [facility]/ZIP Co de Phone Number [facility] * (ABNORMAL) Sepsis Lactate w/ Reflex (06/29/2025 3:20 PM BISQUE GRADER) Sepsis Lactate 2.6(H) 0.7 - 2.0 mmol/L Blood 06/29/2025 3:20 PM BISQUE GRADER 06/29/2025 3:40 PM BISQUE GRADER Christina Jesus MD LAB BLOOD ORDERABLES Final Result Performing Organization Address [facility]/ZIP Co de Phone Number [facility] Department [place] [address] * POCT glucose (06/29/2025 3:19 PM BISQUE GRADER) Glucose, POC 178 70 - 199 mg/dL Comment:Glu2: RN/ Notified Glucose comment 1 Glu2: RN/ Notified [facility] Blood 06/29/2025 3:19 PM BISQUE GRADER 06/29/2025 3:19 PM BISQUE GRADER Christina Jesus MD LAB POCT ORDERABLES - DEVICE Final Result Performing Organization Address City/[facility] de Phone Number [facility] [place] [address] * Urea nitrogen, urine, random (06/29/2025 1:16 PM BISQUE GRADER) Urea nitrogen, ur 264 mg/dL Comment: Interpretive Data No reference range established. Current interpretive data was last revised 2018. Urine 06/29/2025 1:16 PM BISQUE GRADER 06/29/2025 1:41 PM BISQUE GRADER Christina Jesus MD LAB URINE ORDERABLES Final Result Performing Organization Address [facility] de Phone Number [facility] [place] [address] * Sodium, urine, random (06/29/2025 1:16 PM BISQUE GRADER) Sodium, ur 44 mmol/L Comment: Interpretive Data No reference range established. Current interpretive data was last revised 2018. Urine 06/29/2025 1:16 PM BISQUE GRADER 06/29/2025 1:41 PM BISQUE GRADER us Christina Jesus MD LAB URINE ORDERABLES Final Result Performing Organization Address [facility] de Phone Number [facility] Department [place] [address] * Creatinine, urine, random (06/29/2025 1:16 PM BISQUE GRADER) Creatinine Ur 93.5 mg/dL Comment: Interpretive Data No reference range established. Current interpretive data was last revised 2018. Urine 06/29/2025 1:16 PM BISQUE GRADER 06/29/2025 1:41 PM BISQUE GRADER Christina Jesus MD LAB URINE ORDERABLES Final Result Performing Organization Address [facility] Co de Phone Number CHARISSA [facility] Department [place] [address] * (ABNORMAL) Sepsis Lactate w/ Reflex (06/29/2025 11:44 AM BISQUE GRADER) Sepsis Lactate 2.9(H) 0.7 - 2.0 mmol/L Blood 06/29/2025 11:4 4 AM BISQUE GRADER 06/29/2025 1:20 PM BISQUE GRADER Christina Jesus MD LAB BLOOD ORDERABLES Final Result Performing Organization Address [facility] Co de Phone Number CHARISSA [facility] Department [place] [address] * ECG 12-LEAD (06/29/2025 11:20 AM BISQUE GRADER) Narrative [facility] - 06/29/2025 11:20 AM BISQUE GRADER Christina Jesus MD 06/29/2025 11:23 AM ECG 12 lead Date/Time: 06/29/2025 11:20 AM Performed by: Christina Jesus MD Authorized by: Christina Jesus MD Comments: EKG Interpretation Interpreted by ED physician in absence of a distribution operations supervisor Ventricular rate: 132 bpm Rhythm: sinus tachycardia [place]: Normal Intervals: wide QRS with RBBB morphology Other findings: Twave abnormality Interpretation: tachycardic, no stemi Compared to priors: appears similar to EKGs from earlier this ED stay Procedure Note Christina Jesus MD - 06/29/2025 11:20 AM CST Procedure ECG 12 lead Date/Time: 06/29/2025 11:20 AM Performed by: Christina Jesus MD Authorized by: Christina Jesus MD Comments: EKG Interpretation Interpreted by ED physician in absence of a distribution operations supervisor Ventricular rate: 132 bpm Rhythm: sinus tachycardia [place]: Normal Intervals: wide QRS with RBBB morphology Other findings: Twave abnormality Interpretation: tachycardic, no stemi Compared to priors: appears similar to EKGs from earlier this ED stay Christina Jesus MD 06/29/25 1123 us Christina Jesus MD ECG ORDERABLES Edite d Result - Final [facility] * POCT glucose (06/29/2025 11:16 AM BISQUE GRADER) Glucose, POC 107 70 - 199 mg/dL Blood 06/29/2025 11:1 6 AM BISQUE GRADER 06/29/2025 11:16 AM BISQUE GRADER Christina Jesus MD LAB POCT ORDERABLES - DEVICE Final Result Performing Organization Address [facility] Co de Phone Number [facility] Department [place] [address] * (ABNORMAL) Urinalysis reflex to microscopic and culture Urine (06/29/2025 8:09 AM BISQUE GRADER) Color, ur Straw Yellow Clarity, ur Cloudy(A) Clear [facility] Specific gravity, ur 1.013 1.003 - 1.030 [facility] pH, urine 6.0 [facility] Comment: Interpretive Data U rine pH is affected by diet, medications, systemic acid-base disturbances, and renal tubular function. pH may affect urinary stone formation. For example, urine pH below 6.0 may help reduce the tendency for calcium phosphate stones and pH greater than 6.0 may reduce the tendency for uric acid stone formation. Source: [facility] [employer] Current Interpretive Data was last revised on 2017 Protein, ur ql Negative Negative [facility] Glucose, ur ql Negative Negative [facility] Ketones, ur Negative Negative [facility] Bilirubin, ur Negative Negative [facility] Blood, ur Negative Negative [facility] Urobilinogen, ur <2.0 <2.0 mg/dL [facility] Nitrite, ur Negative Negative [facility] Leukocyte esterase, ur 3+(A) Negative [facility] UA reflex comment Reflex to microscopic UA will be performed. [facility] Urine 06/29/2025 8:09 AM BISQUE GRADER 06/29/2025 9:37 AM BISQUE GRADER Yossi Ga MD LAB MICROBIOLOGY - GENER AL ORDERABLES Final Result Performing Organization Address [facility] Co de Phone Number [facility] [place] [address] * (ABNORMAL) Urinalysis, microscopic only (06/29/2025 8:09 AM BISQUE GRADER) WBC, ur 21-50(A) 0 - 5 /HPF RBC, ur 11-20(A) 0 - 2 /HPF [facility] Epithelial cells, squamous, ur 6-10(A) 0 - 5 /HPF [facility] Comment:Suggestive of contam ination. Consider recollection by clean catch. Epithelial cells, renal, ur 1-5(A) 0 - 0 /HPF [facility] Epithelial cells, transitional, ur 1-5 0 - 0 /HPF [facility] Bacteria, ur Trace(A) [facility] Mucous, ur Present(A) [facility] Hyaline casts, ur >50(A) 0 - 10 /LPF [facility] Culture Reflex Comment Reflex to urine culture will be performed. [facility] Urine 06/29/2025 8:09 AM BISQUE GRADER 06/29/2025 9:37 AM BISQUE GRADER Yossi Ga MD LAB URINE ORDERABLES Fin al Result Performing Organization Address [facility] Co de Phone Number [facility] [employer] [place] [address] * Urine culture Urine (06/29/2025 8:09 AM BISQUE GRADER) Report Final Report: Less than 100,000 colonies/mL (clinically insignificant growth based on current clinical standards) Organism (CLINICALLY INSIGNIFICANT GROWTH [facility] Urine 06/29/2025 8:09 AM BISQUE GRADER 06/29/2025 3:39 PM BISQUE GRADER Narrative [facility] - 06/30/2025 4:17 PM BISQUE GRADER Urine culture reflexed based upon urinalysis results. Testing performed by [facility] ([phone]) Yossi Ga MD LAB MICROBIOLOGY - GENER AL ORDERABLES Final Result Performing Organization Address [facility] de Phone Number [facility] Department [place] [address] * (ABNORMAL) Troponin I high-sensitivity 6-hour (06/29/2025 8:00 AM BISQUE GRADER) Trop I hs 44(H) <=17 ng/L Comment: Interpretive Data For further hscTnI resources including the diagnostic algorithm and an aid in interpretation, copy and paste this link: https://bjhlab.testcatalog.org/show/hsTrop-1 Current Interpretive Data last revised 2020. Trop I hs delta 13 ng/L [facility] Trop I hs interp Equivocal [facility] Blood 06/29/2025 8:00 AM BISQUE GRADER 06/29/2025 9:57 AM BISQUE GRADER us Luis Smith MD LAB BLOOD ORDERABLES Fin al Result Performing Organization Address [facility] de Phone Number [facility] Department [place] [address] * (ABNORMAL) eGFR (06/29/2025 8:00 AM BISQUE GRADER) eGFR 20(L) >=60 mL/min/1. 73 m2 Comment: Interpretive Data [...] interpretive data was last reviewed 2021. Blood 06/29/2025 8:00 AM BISQUE GRADER 06/29/2025 9:57 AM BISQUE GRADER us Christina Jesus MD LAB BLOOD ORDERABLES Final Result Performing Organization Address City/[facility]/ZIP Co de Phone Number [facility] Department [place] [address] * Magnesium (06/29/2025 8:00 AM BISQUE GRADER) [facility] Magnesium 1.7 1.4 - 2.5 mg/dL Blood 06/29/2025 8:00 AM BISQUE GRADER 06/29/2025 9:57 AM BISQUE GRADER Swapnil Cisneros MD LAB BLOOD ORDERABLES Fi nal Result Performing Organization Address City/[facility]/ZIP Co de Phone Number [facility] Department [place] [address] * (ABNORMAL) Basic metabolic panel (06/29/2025 8:00 AM BISQUE GRADER) Sodium 129(L) 135 - 145 mmol/L Potassium, pl 3.3 3.3 - 4.9 mmol/L [facility] Chloride 89(L) 97 - 110 mmol/L [facility] CO2 26 22 - 32 mmol/L [facility] Anion gap 14 2 - 15 mmol/L [facility] BUN 45(H) 6 - 25 mg/dL [facility] Creatinine 2.58(H) 0.60 - 1.10 mg/dL [facility] Glucose 113 70 - 199 mg/dL [facility] [...] interpretive data was last revised 2022. Calcium 9.4 8.5 - 10.3 mg/dL [facility] Blood 06/29/2025 8:00 AM BISQUE GRADER 06/29/2025 9:57 AM BISQUE GRADER us Christina Jesus MD LAB BLOOD ORDERABLES Final Result Performing Organization Address [facility]/ZIP Co de Phone Number [facility] Department [place] [address] * POCT glucose (06/29/2025 7:57 AM BISQUE GRADER) Pathologist [facility] Glucose, POC 135 70 - 199 mg/dL Blood 06/29/2025 7:57 AM BISQUE GRADER 06/29/2025 7:57 AM BISQUE GRADER Kary Santiago MD LAB POCT ORDERABLES - DE VICE Final Result Performing Organization Address [facility] Co de Phone Number [facility] Department [place] [address] * (ABNORMAL) Troponin I high-sensitivity 4-hour (06/29/2025 6:20 AM BISQUE GRADER) [facility] Trop I hs 38(H) <=17 ng/L Comment: Interpretive Data For further [facility] resources including the diagnostic algorithm and an aid in interpretation, copy and paste this link: https://bjhlab.testcatalog.org/show/hsTrop-1 Current Interpretive Data last revised 2020. Trop I hs delta 7 ng/L [facility] Trop I hs interp Equivocal [facility] Blood 06/29/2025 6:20 AM BISQUE GRADER 06/29/2025 6:47 AM BISQUE GRADER Luis Smith MD LAB BLOOD ORDERABLES Fin al Result Performing Organization Address [facility] Co de Phone Number [facility] Department [place] [address] * ECG 12-LEAD (06/29/2025 5:01 AM BISQUE GRADER) Narrative [facility] - 06/29/2025 5:01 AM BISQUE GRADER See Nicholas MD PhD 06/29/2025 5:02 AM ECG 12 lead Date/Time: 06/29/2025 5:01 AM Performed by: See Nicholas MD PhD Authorized by: See Nicholas MD PhD Comments: (02:26) atrial fibrillation with rapid ventricular response at 124 beats per minute; normal axis; right bundle branch block; inferolateral ST and T-wave abnormalities. Compared to previous EKG rate has slowed slightly. See Nicholas MD PhD ECG ORDERABLES Fin al Result Performing Organization Address [facility] de Phone Number [facility] * (ABNORMAL) Troponin I high-sensitivity 2-hour (06/29/2025 4:10 AM BISQUE GRADER) Trop I hs 38(H) <=17 ng/L Comment: Interpretive Data For further hscTnI resources including the diagnostic algorithm and an aid in interpretation, copy and paste this link: https://bjhlab.testcatalog.org/show/hsTrop-1 Current Interpretive Data last revised 2020. Trop I hs delta 7 ng/L [facility] Trop I hs interp Equivocal [facility] Blood 06/29/2025 4:10 AM BISQUE GRADER 06/29/2025 4:26 AM BISQUE GRADER Luis Smith MD LAB BLOOD ORDERABLES Fin al Result Performing Organization Address [facility] de Phone Number [facility] Department [place] [address] * POCT glucose (06/29/2025 3:53 AM BISQUE GRADER) Glucose, POC 143 70 - 199 mg/dL Blood 06/29/2025 3:53 AM BISQUE GRADER 06/29/2025 3:53 AM BISQUE GRADER See Nicholas MD PhD LAB POCT ORDERABLES - DEVICE Final Result Performing Organization Address [facility] [place] [address] * (ABNORMAL) Troponin I high-sensitivity series (baseline, 2hr, 4hr, 6hr) (06/29/2025 2:00 AM BISQUE GRADER) Pathologist [facility] Trop I hs 31(H) <=17 ng/L Comment: Interpretive Data For further hscTnI resources including the diagnostic algorithm and an aid in interpretation, copy and paste this link: https://bjhlab.testcatalog.org/show/hsTrop-1 Current Interpretive Data last revised 2020. Blood 06/29/2025 2:00 AM BISQUE GRADER 06/29/2025 2:32 AM BISQUE GRADER Luis Smith MD LAB BLOOD ORDERABLES Fin al Result Performing Organization Address [facility] de Phone Number [facility] Department [place] [address] * ECG 12-LEAD (06/29/2025 1:44 AM BISQUE GRADER) Narrative [facility] - 06/29/2025 1:44 AM BISQUE GRADER See Nicholas MD PhD 06/29/2025 1:46 AM ECG 12 lead Date/Time: 06/29/2025 1:44 AM Performed by: See Nicholas MD PhD Authorized by: See Nicholas MD PhD Comments: (01:33) supraventricular tachycardia (likely atrial flutter at 137 beats per minute; normal axis; right bundle branch block; inferolateral ST-T abnormality and T-wave inversion. Compared with August 2023 tachycardia, likely atrial flutter, has replaced normal sinus rhythm and inferolateral T-wave abnormalities are new. us See Nicholas MD PhD ECG ORDERABLES Fin al Result Performing Organization Address City/[facility]/ZIP Co de Phone Number [facility] * POCT glucose (06/28/2025 11:46 PM BISQUE GRADER) [facility] Signature Glucose, POC 149 70 - 199 mg/dL Blood 06/28/2025 11:4 6 PM BISQUE GRADER 06/28/2025 11:46 PM BISQUE GRADER See Nicholas MD PhD LAB POCT ORDERABLES - DEVICE Final Result Performing Organization Address [facility] Co de Phone Number [facility] Department [place] [address] * [place] CRITICAL CARE ILL/INJURED PATIENT INIT 30-74 MIN (06/28/2025 11:00 PM BISQUE GRADER) Narrative Yossi Ga MD - 06/28/2025 11:00 PM BISQUE GRADER Yossi Ga MD 06/29/2025 9:51 AM Critical Care Performed by: Yossi Ga MD Authorized by: Kary Santiago MD Critical care provider statement: As reflected in the history, physical exam, orders, notes, and/or MDM, I was personally present while the patient was critically ill and provided critical care services for 75 minutes, excluding time involved in separately billable procedures. Critical care was necessary to treat or prevent imminent or life-threatening deterioration of the following condition(s): unstable vital signs acute decompensated hepatic failure acute renal failure Critical care was time spent by me providing the following: continuous telemetry, continuous pulse oximetry, interpretation of bedside monitors, imaging, and arterial/venous lab draws, serial bedside patient exams, serial laboratory checks and resuscitation with fluids decision regarding NPO status and serial abdominal exams obtain appropriate cultures I provided emergent necessary critical care medicine [...] time documenting in the medical record. us Kary Santiago MD IN CLINIC/BEDSIDE ORDERA BLES Final Result * Respiratory pathogen panel Nasopharyngeal (06/28/2025 10:32 PM BISQUE GRADER) Pathologist [facility] Influenza A RNA Not Detected [...] Detected Not Detected [facility] Nasopharyngeal 06/28/2025 10 :32 PM BISQUE GRADER 06/28/2025 11:01 PM BISQUE GRADER Narrative [facility] - 06/29/2025 12:00 AM BISQUE GRADER Is the Patient experiencing symptoms consistent with COVID?->Unknown Surveillance testing for transplant patient?->No Interpretive Data The Smaato FilmArray Respiratory Panel (RP2.1) assay is a [...] assay has FDA clearance for testing of FRUIT PICKER MACHINE OPERATOR swabs. The performance of additional specimen types has been assessed by the performing laboratory. The performance characteristics of this assay have been determined by [facility] Molecular Infectious Disease Laboratory. Current interpretive data was last revised on 22. Yossi Ga MD LAB MICROBIOLOGY - [facility] ORDERABLES Final Result [facility] Department [place] [address] * Blood culture Blood Peripheral (06/28/2025 10:32 PM BISQUE GRADER) Report Final Report: No growth Blood (Peripheral) 06/28/2025 10:32 PM BISQUE GRADER 06/28/2025 10:51 PM BISQUE GRADER Narrative [facility] - 07/03/2025 7:00 AM BISQUE GRADER From a different site than #1. Draw Blood cultures before administration of Antibiotics Collection->Peripheral 1. Blood cultures are incubated for [...] be performed for organism identification using the vianca ePlex blood culture identification panel for gram positive (BCID-GP) and gram negative (BCID-GN) organisms. This nucleic acid amplification test detects microbial DNA in positive blood culture broth. This assay has been cleared by the [place] Food and Drug Administration and its performance characteristics have been verified by the [facility]. For questions about this culture, contact the Microbiology Laboratory at [phone]. Interpretive data was last revised on 24. Yossi Ga MD LAB MICROBIOLOGY - [facility] ORDERABLES Final Result [facility] [place] [address] * Blood culture Blood Peripheral (06/28/2025 10:32 PM BISQUE GRADER) Report Final Report: No growth Blood (Peripheral) 06/28/2025 10:32 PM BISQUE GRADER 06/28/2025 10:52 PM BISQUE GRADER Narrative CHARISSA [facility] - 07/03/2025 7:00 AM BISQUE GRADER Draw Blood cultures before administration of Antibiotics Collection->Peripheral 1. Blood cultures are incubated for [...] be performed for organism identification using the vianca ePlex blood culture identification panel for gram positive (BCID-GP) and gram negative (BCID-GN) organisms. This nucleic acid amplification test detects microbial DNA in positive blood culture broth. This assay has been cleared by the [place] Food and Drug Administration and its performance characteristics have been verified by the [facility]. For questions about this culture, contact the Microbiology Laboratory at [phone]. Interpretive data was last revised on 24. Yossi Ga MD LAB MICROBIOLOGY - [facility] ORDERABLES Final Result [facility] Department [place] [address] * (ABNORMAL) Protime-INR (06/28/2025 10:32 PM BISQUE GRADER) PT 16.3(H) 10.2 - 13.5 sec INR 1.45(H) 0.90 - 1.20 [facility] Comment: Interpretive data Oral anticoagulant therapeutic ranges: Venous thromboembolism prophylaxis or treatment: 2.0-3.0 CARDIOLOGY Standard range: 2.0-3.0 High-intensity range: 2.5-3.5 Refer to indication-specific guidelines for appropriate target ranges for prosthetic heart valve replacement. Current interpretive data was last revised on 2019. Blood 06/28/2025 10:3 2 PM BISQUE GRADER 06/28/2025 11:01 PM BISQUE GRADER Yossi Ga MD LAB BLOOD ORDERABLES Fin al Result [facility] Department [place] [address] * XR Chest 1 Vw Portable (06/28/2025 10:31 PM BISQUE GRADER) Anatomical Region Laterality Modality Body, Chest N/A Computed Radiogr aphy 06/28/2025 10:3 4 PM BISQUE GRADER Impressions 06/29/2025 11:14 AM BISQUE GRADER FINDINGS/IMPRESSION: Lungs are clear. No pleural effusion or pneumothorax. Cardiac mediastinal silhouette is stable from prior exam. Dictated by: Jet Briones MD The radiology attending physician has personally reviewed this study, and had reviewed and/or edited this written report and agrees with it. Electronically signed by: Marnie Shin M.D. Narrative 06/29/2025 11:14 AM BISQUE GRADER EXAMINATION: XR CHEST 1 VIEW HISTORY: tachycardia COMPARISON: Radiograph from 09/24/2024 Procedure Note Marnie Shin MD - 06/29/2025 EXAMINATION: XR CHEST 1 VIEW HISTORY: tachycardia COMPARISON: Radiograph from 09/24/2024 IMPRESSION: FINDINGS/IMPRESSION: Lungs are clear. No pleural effusion or pneumothorax. Cardiac mediastinal silhouette is stable from prior exam. Dictated by: Jet Briones MD The radiology attending physician has personally reviewed this study, and had reviewed and/or edited this written report and agrees with it. Electronically signed by: Marnie Shin M.D. Yossi Ga MD IMG XR PROCEDURES Final Result * (ABNORMAL) eGFR (06/28/2025 8:28 PM BISQUE GRADER) eGFR 24(L) >=60 mL/min/1. 73 m2 Comment: Interpretive Data [...] interpretive data was last reviewed 2021. Blood 06/28/2025 8:28 PM BISQUE GRADER 06/28/2025 8:42 PM BISQUE GRADER us Yossi Ga MD LAB BLOOD ORDERABLES Fin al Result [facility] Department [place] [address] * (ABNORMAL) Differential, auto (06/28/2025 8:28 PM BISQUE GRADER) Pathologist [facility] Neutrophil abs 5.80 1.50 - 6.50 K/cumm Imm gran abs 0.02 0.00 - 0.10 K/cumm [facility] Lymphocyte abs 1.03 0.80 - 3.30 K/cumm [facility] Monocyte abs 0.81(H) 0.20 - 0.80 K/cumm [facility] Eosinophil abs 0.25 0.00 - 0.50 K/cumm [facility] Basophil abs 0.02 0.00 - 0.10 K/cumm [facility] Neutrophil pct 73.0 % [facility] Comment: Interpretive Data [...] was last revised on 2017. Lymphocyte pct 13.0 % [facility] Comment: Interpretive Data Percent cell count reference ranges are not reported, since discordance with absolute values may lead to misinterpretation of CBC data. Current Interpretive Data was last revised on 2017. Monocyte pct 10.2 % [facility] Comment: Interpretive Data Percent cell count reference ranges are not reported, since discordance with absolute values may lead to misinterpretation of CBC data. Current Interpretive Data was last revised on 2017. Eosinophil pct 3.2 % [facility] Comment: Interpretive Data [...] Data was last revised on 2017. Blood 06/28/2025 8:28 PM BISQUE GRADER 06/28/2025 8:42 PM BISQUE GRADER us Yossi Ga MD LAB BLOOD ORDERABLES Fin al Result [facility] Department [place] [address] * (ABNORMAL) CBC with auto differential (06/28/2025 8:28 PM BISQUE GRADER) WBC 7.93 3.80 - 9.90 K/cumm Hgb 12.2 11.9 - 15.5 g/dL [facility] Hct 35.4(L) 35.6 - 45.5 % [facility] Plt 147(L) 150 - 400 K/cumm [facility] MPV 10.9 9.1 - 12.3 fL [facility] RBC 4.45 3.90 - 5.20 M/cumm [facility] MCV 79.6(L) 81.3 - 96.4 fL [facility] MCH 27.4 27.1 - 33.3 pg [facility] MCHC 34.5 32.3 - 35.7 g/dL [facility] RDW CV 15.7(H) 11.1 - 14.9 % [facility] RDW SD 45.1 35.7 - 48.1 fL [facility] NRBC abs 0.00 0.00 - 0.01 K/cumm [facility] Blood 06/28/2025 8:28 PM BISQUE GRADER 06/28/2025 8:42 PM BISQUE GRADER Yossi Ga MD LAB BLOOD ORDERABLES Fin al Result Performing Organization Address City/[facility]/ZIP Co de Phone Number [facility] [place] [employer] [place] [address] * Lipase (06/28/2025 8:28 PM BISQUE GRADER) Lipase 65 10 - 99 Units/L Blood 06/28/2025 8:28 PM BISQUE GRADER 06/28/2025 8:42 PM BISQUE GRADER Result [facility] Yossi Ga MD LAB BLOOD ORDERABLES Fin al Result Performing Organization Address City/[facility] de Phone Number [facility] [employer] [place] [address] * Hemoglobin A1c (06/28/2025 8:28 PM BISQUE GRADER) Hgb A1C 5.2 4.0 - 5.6 % Estimated Average Glucose 103 mg/dL [facility] Comment: The ADA recommends reporting an estimated Average Glucose (eAG) with all Hemoglobin A1c results using the equation derived from a study of 507 normal and diabetic adults. Minority populations were underrepresented and children were not included. (Diabetes Care 2020; 43(S1): S66-S76). The eAG is not equivalent to a fasting glucose. Blood 06/28/2025 8:28 PM BISQUE GRADER 06/28/2025 8:45 PM BISQUE GRADER Kary Santiago MD LAB BLOOD ORDERABLES Fin al Result [facility] [place] [address] * Ammonia (06/28/2025 8:28 PM BISQUE GRADER) Ammonia 50 <=50 mcmol/L Blood 06/28/2025 8:28 PM BISQUE GRADER 06/28/2025 8:39 PM BISQUE GRADER Yossi Ga MD LAB BLOOD ORDERABLES Fin al Result Performing Organization Address [facility] Co de Phone Number [facility] [place] [employer] [place] [address] * (ABNORMAL) Hepatic function panel (06/28/2025 8:28 PM BISQUE GRADER) Bilirubin, total 3.4(H) 0.1 - 1.2 mg/dL Bilirubin, direct 1.2(H) 0.1 - 0.3 mg/dL [facility] Protein, pl 7.3 6.5 - 8.5 g/dL [facility] Albumin 3.5 3.5 - 5.0 g/dL [facility] Alk phos 76 40 - 130 Units/L [facility] ALT 20 7 - 45 Units/L [facility] AST 35 10 - 45 Units/L [facility] Blood 06/28/2025 8:28 PM BISQUE GRADER 06/28/2025 8:42 PM BISQUE GRADER Yossi Ga MD LAB BLOOD ORDERABLES Fin al Result Performing Organization Address City/[facility] Co de Phone Number [facility] [employer] [place] [address] * Lipid panel (06/28/2025 8:28 PM BISQUE GRADER) Cholesterol 110 30 - 199 mg/dL Comment: Interpretive Data [...] Data was last revised on 2018. Triglycerides 65 <=149 mg/dL CHARISSA [facility] Comment: Interpretive Data Ages < [...] Data was last revised on 2018. HDL 47 >=40 mg/dL [facility] Comment: Interpretive Data Ages < [...] was last revised on 2018. LDL, calculated 49 <=129 mg/dL CHARISSA [facility] Comment: Interpretive Data Ages < [...] was last revised on 2024. Non-HDL Cholesterol 63 mg/dL [facility] Comment: Interpretive Data Ages < or [...] last revised on 2018. Chol/HDL ratio 2 [facility] Blood 06/28/2025 8:28 PM BISQUE GRADER 06/28/2025 8:42 PM BISQUE GRADER us Kary Santiago MD LAB BLOOD ORDERABLES Fin al Result [facility] Department [place] [address] * (ABNORMAL) Basic metabolic panel (06/28/2025 8:28 PM BISQUE GRADER) Sodium 127(L) 135 - 145 mmol/L Potassium, pl 3.0(L) 3.3 - 4.9 mmol/L [facility] Chloride 84(L) 97 - 110 mmol/L [facility] Comment:Repeated and Verifie d CO2 25 22 - 32 mmol/L [facility] Anion gap 18(H) 2 - 15 mmol/L [facility] BUN 39(H) 6 - 25 mg/dL [facility] Creatinine 2.21(H) 0.60 - 1.10 mg/dL [facility] Glucose 151 70 - 199 mg/dL [facility] [...] interpretive data was last revised 2022. Calcium 9.9 8.5 - 10.3 mg/dL [facility] Blood 06/28/2025 8:28 PM BISQUE GRADER 06/28/2025 8:42 PM BISQUE GRADER Yossi Ga MD LAB BLOOD ORDERABLES [facility] Result [facility] Department [place] [address] * (ABNORMAL) ECG 12-LEAD (06/28/2025 8:05 PM BISQUE GRADER) Narrative [facility] - 06/28/2025 8:05 PM BISQUE GRADER Yossi Ga MD 06/28/2025 8:06 PM ECG 12 lead Date/Time: 06/28/2025 8:05 PM Performed by: Yossi Ga MD Authorized by: Kary Sanchez MD Rate: ECG rate: 141 ECG rate assessment: tachycardic Rhythm: Rhythm: sinus tachycardia Ectopy: Ectopy: none QRS: QRS axis: Normal QRS intervals: Wide Conduction: Conduction: abnormal Abnormal conduction: complete RBBB ST segments: ST segments: Non-specific T waves: T waves: non-specific Previous ECG: Previous ECG: Compared to current Date of previous EC06/16/2023 Similarity: Changes noted Interpretation: Interpretation: abnormal Recommended Follow-up: Recommended follow up: further workup in the ED us Yossi Ga MD ECG ORDERABLES Final Re sult [facility] * POCT glucose (06/28/2025 4:52 PM BISQUE GRADER) Glucose, POC 135 70 - 199 mg/dL Blood 06/28/2025 4:52 PM BISQUE GRADER 06/28/2025 4:52 PM BISQUE GRADER us Notinfile Unknown LAB POCT ORDERABLES - DEVICE F inal Result Performing Organization Address [facility]/ZIP Co de Phone Number CHARISSA [facility] Department [place] [address] * POCT glucose (06/28/2025 4:32 PM BISQUE GRADER) Glucose, POC 152 70 - 199 mg/dL Blood 06/28/2025 4:32 PM BISQUE GRADER 06/28/2025 4:32 PM BISQUE GRADER Notinfile Unknown LAB POCT ORDERABLES - DEVICE F inal Result Performing Organization Address [facility] de Phone Number CHARISSA [facility] Department [place] [address] * (ABNORMAL) eGFR (06/16/2025 11:29 AM BISQUE GRADER) eGFR 36(L) >=60 mL/min/1. 73 m2 Comment: [...] interpretive data was last reviewed 2021. Blood 06/16/2025 11:2 9 AM BISQUE GRADER 06/16/2025 12:00 PM BISQUE GRADER Yossi Anderson MD LAB BLOOD ORDERABLES F inal Result Performing Organization Address [facility] de Phone Number CHARISSA [facility] [employer] [place] [address] * [id number], Tumor Marker (06/16/2025 11:29 AM BISQUE GRADER) alpha Fetoprotein <2.0 <=8.3 ng/mL Comment: Interpretive [...] 2018;[id number] Katya House et al. Clin Chem 2014;[id number]. Current interpretive data was last revised 2022. Blood 06/16/2025 11:2 9 AM BISQUE GRADER 06/16/2025 12:00 PM BISQUE GRADER Yossi Anderson MD LAB BLOOD ORDERABLES F inal Result Performing Organization Address [facility] Co de Phone Number [facility] [place] [address] * (ABNORMAL) Protime-INR (06/16/2025 11:29 AM BISQUE GRADER) [facility] PT 14.7(H) 10.2 - 13.5 sec INR 1.31(H) 0.90 - 1.20 [facility] Comment: Interpretive data Oral anticoagulant therapeutic ranges: Venous thromboembolism prophylaxis or treatment: 2.0-3.0 CARDIOLOGY Standard range: 2.0-3.0 High-intensity range: 2.5-3.5 Refer to indication-specific guidelines for appropriate target ranges for prosthetic heart valve replacement. Current interpretive data was last revised on 2019. Blood 06/16/2025 11:2 9 AM BISQUE GRADER 06/16/2025 12:03 PM BISQUE GRADER us Yossi Anderson MD LAB BLOOD ORDERABLES F inal Result [facility] Department [place] [address] * (ABNORMAL) CBC without differential (06/16/2025 11:29 AM BISQUE GRADER) [facility] WBC 4.69 3.80 - 9.90 K/cumm Hgb 9.2(L) 11.9 - 15.5 g/dL [facility] Hct 28.7(L) 35.6 - 45.5 % [facility] Plt 81(L) 150 - 400 K/cumm [facility] MPV 11.9 9.1 - 12.3 fL [facility] RBC 3.27(L) 3.90 - 5.20 M/cumm [facility] MCV 87.8 81.3 - 96.4 fL [facility] MCH 28.1 27.1 - 33.3 pg [facility] MCHC 32.1(L) 32.3 - 35.7 g/dL [facility] RDW CV 15.2(H) 11.1 - 14.9 % [facility] RDW SD 48.3(H) 35.7 - 48.1 fL [facility] NRBC abs 0.00 0.00 - 0.01 K/cumm [facility] Blood 06/16/2025 11:2 9 AM BISQUE GRADER 06/16/2025 12:00 PM BISQUE GRADER Yossi Anderson MD LAB BLOOD ORDERABLES F inal Result [facility] Department [place] [address] * (ABNORMAL) Comprehensive metabolic panel (06/16/2025 11:29 AM BISQUE GRADER) Sodium 136 135 - 145 mmol/L Potassium, pl 3.6 3.3 - 4.9 mmol/L [facility] Chloride 98 97 - 110 mmol/L [facility] CO2 28 22 - 32 mmol/L [facility] Anion gap 10 2 - 15 mmol/L [facility] BUN 27(H) 6 - 25 mg/dL [facility] Creatinine 1.60(H) 0.60 - 1.10 mg/dL [facility] Glucose 121 70 - 199 mg/dL [facility] [...] interpretive data was last revised 2022. Calcium 9.0 8.5 - 10.3 mg/dL [facility] Bilirubin, total 2.1(H) 0.1 - 1.2 mg/dL [facility] Protein, pl 6.7 6.5 - 8.5 g/dL [facility] Albumin 3.4(L) 3.5 - 5.0 g/dL [facility] Alk phos 76 40 - 130 Units/L [facility] ALT 24 7 - 45 Units/L [facility] AST 36 10 - 45 Units/L [facility] Blood 06/16/2025 11:2 9 AM BISQUE GRADER 06/16/2025 12:00 PM BISQUE GRADER Yossi Anderson MD LAB BLOOD ORDERABLES F inal Result Performing Organization Address City/[facility]/ZIP Co de Phone Number [facility] Department [place] [address] * (ABNORMAL) eGFR (06/08/2025 4:14 PM CDT) eGFR 26(L) >=60 mL/min/1. 73 m2 Comment: [...] interpretive data was last reviewed 2021. Blood 06/08/2025 4:14 PM CDT 06/08/2025 6:34 PM CDT us Gladys De Jesus MD LAB BLOOD ORDERABLES Fi nal Result [facility] [address] [facility] Department [place] [address] * (ABNORMAL) Protime-INR (06/08/2025 4:14 PM CDT) PT 15.60(H) 12.00 - 14.60 sec INR 1.23(H) 0.90 - 1.[address] [facility] Comment: Interpretive data Oral anticoagulant therapeutic ranges: Venous thromboembolism prophylaxis or treatment: 2.0-3.0 CARDIOLOGY Standard range: 2.0-3.0 High-intensity range: 2.5-3.5 Refer to indication-specific guidelines for appropriate target ranges for prosthetic heart valve replacement. Current interpretive data was last revised on 2019. Blood 06/08/2025 4:14 PM CDT 06/08/2025 6:34 PM CDT us Gladys De Jesus MD LAB BLOOD ORDERABLES Fi nal Result [facility] [address] [facility] Department [place] [address] * (ABNORMAL) Comprehensive metabolic panel (06/08/2025 4:14 PM CDT) Sodium 134(L) 135 - 145 mmol/L Potassium, pl 3.4 3.3 - 4.9 mmol/L [facility] Chloride 94(L) 97 - 110 mmol/L [facility] CO2 28 22 - 32 mmol/L [facility] Anion gap 12 2 - 15 mmol/L [facility] BUN 43(H) 6 - 25 mg/dL [facility] Creatinine 2.10(H) 0.60 - 1.10 mg/dL [facility] Glucose 124 70 - 199 mg/dL [facility] Comment: Interpretive Data Fasting glucose >/= [...] interpretive data was last revised 2022. Calcium 9.8 8.5 - 10.3 mg/dL [facility] Bilirubin, total 1.9(H) 0.1 - 1.2 mg/dL [facility] Protein, pl 6.4(L) 6.5 - 8.5 g/dL [facility] Albumin 3.4(L) 3.5 - 5.0 g/dL [facility] Alk phos 81 40 - 130 Units/L [facility] ALT 24 7 - 45 Units/L [facility] AST 39 10 - 45 Units/L [facility] Blood 06/08/2025 4:14 PM CDT 06/08/2025 6:34 PM CDT us Gladys De Jesus MD LAB BLOOD ORDERABLES Fi nal Result CHARISSA [facility] [address] [facility] Department [place] [address] * TRANSTHORACIC ECHO (TTE) COMPLETE W DOPPLER/CF W CONTRAST W BUBBLE (05/28/2025 4:06 PM CDT) Estimated EF 65-70 % CONS SCIMAGE EF Mod BP 75 % CONS SCIMAGE Anatomical Region Laterality Modality Ultrasound 05/28/2025 2:42 PM CDT Narrative 05/28/2025 4:55 PM CDT [facility] [place] [address] Transthoracic Echocardiographic Report Patient Name: NAEL CARDOZA J : 1960 (64y 5m) Sex: F Study Date: 05/28/2025 02:42:22 PM Ht(Inch): 67 Wt(Lb): 261.02 BSA: 2.26 Mill Helper: Ramya Whyte RDCS Location: [facility] Order Provider: DAKSHA FULLER Heart Rate: 71 BMI: 40.88 BP: 139 / 56 Ref Provider: DAKSHA FULLER PROCEDURES: Echocardiographic Report: Transthoracic complete echo with strain imaging and contrast, 2D, spectral and tissue Doppler, color flow Doppler, M-mode. Contrast: Contrast Enhancement was Employed: After initial imaging due to sub- optimal quality related to co-morbidity defined by patient's body habitus and due to suboptimal image quality with inadequate visualization of at least 2 of 16 LV wall segments in any view after initial imaging. Perflutren contrast was administered using the volume necessary to obtain adequate images. 0.8 ml Optison Administered, (2.2 ml wasted) & NS Bubble Study. INDICATIONS: K75.81 Nonalcoholic steatohepatitis (LYONS) and K74.69 Other cirrhosis of liver. CONCLUSIONS: 1. Mildly dilated left ventricle based on volume index. Normal LV wall thickness. There is hyperdynamic left ventricular systolic function. The Ejection Fraction (Pitts's) is measured at 75 %. The Ejection Fraction is visually estimated to be 65-70 %. Grade II diastolic dysfunction (elevated mean LA pressure). The average global longitudinal strain is normal. 2. Resting Segmental Wall Motion Analysis: Total wall motion score is 1.00. There are no regional wall motion abnormalities. 3. Normal right ventricular size. Normal right ventricular systolic function. 4. Agitated saline bubble study is negative for intracardiac shunt at rest and post-Valsalva. 5. The estimated pulmonary artery systolic pressure is 41.0 mmHg. COMPARISONS: Compared with prior study dated 04/22/2024, I did not see any bubble crossover on today's study. Otherwise, the right and left ventricular systolic function are similar and there are no new valvular abnormalities. ATTESTATION: I have personally reviewed and interpreted this study without fellow or resident. DISCLAIMER: The study images and the final report will be retained in the patient chart by the Echo Laboratory for the legally required time period. This chart constitutes the legal record of any testing performed. FINDINGS: Left Ventricle: Mildly dilated left ventricle based on volume index. Normal LV wall thickness. There is hyperdynamic left ventricular systolic function. The Ejection Fraction (Pitts's) is measured at 75 %. The Ejection Fraction is visually estimated to be 65-70 %. Grade II diastolic dysfunction (elevated mean LA pressure). The average global longitudinal strain is normal. The LV global strain is: -19.2 %. Resting Segmental Wall Motion Analysis: Total wall motion score is 1.00. There are no regional wall motion abnormalities. Right Ventricle: Normal right ventricular size. Normal right ventricular systolic function. Left Atrium: Mildly dilated left atrium. Right Atrium: The right atrium is normal in size. Atrial Septum: Normal interatrial septum. Agitated saline bubble study is negative for intracardiac shunt at rest and post-Valsalva. Mitral Valve: Mitral valve leaflets appear mildly thickened. Mild calcification. Mild mitral annular calcification. Mild mitral valve regurgitation. No stenosis present. Aortic Valve: Trileaflet aortic valve. Mildly calcified aortic valve leaflets. No aortic valve stenosis. The mean transaortic gradient is 8 mmHg. The aortic valve area by the continuity equation (using VTI) is 2.3 cm2. Aortic valve dimensionless index is 0.73. Tricuspid Valve: Normal tricuspid valve structure. Mild tricuspid regurgitation. No tricuspid valve stenosis. Pulmonic Valve: The pulmonic valve is not well visualized due to poor acoustic windows. No pulmonic regurgitation. No pulmonic valve stenosis present. Pericardium: Normal pericardium without pericardial effusion. Aorta: Normal aortic root size at sinuses of Valsalva. The ascending aorta is normal in size when indexed. IVC: The IVC was >2.1 cm and collapsibility >50%. (est. RA pressure 6-10 mmHg). The estimated RA pressure is 10 mmHg. PASP: The estimated pulmonary artery systolic pressure is 41.0 mmHg. Rhythm: Normal Sinus rhythm was seen during the study. MEASUREMENTS: 2D/MM Value Range Doppler Value Range LVIDd 2D 5.4 cm [ 3.8 - 5.2 ] AV Peak Louie 2.0 m/s [ 1.0 - 1.7 ] LVIDs 2D 2.9 cm [ 2.2 - 3.5 ] AV Peak PG 16 mmHg IVSd 2D 0.9 cm [ 0.6 - 0.9 ] AV Mean PG 8 mmHg LVPWd 2D 0.9 cm [ 0.6 - 0.9 ] AV VTI 45 cm LV Thickness Ratio 1.0 LVOT Peak Louie 1.6 m/s [ 0.7 - 1.1 ] LV FS 2D 46.09 % [ 27.00 - 45.00 ] LVOT Peak PG 10 mmHg LV Mass 2D 185.17 g LVOT Mean PG 5 mmHg LV Mass Index 2D 81.78 g/m2 LVOT VTI 33 cm RWT 0.33 LVOT Diam 2.0 cm EDV Mod BP 151 ml [ 46 - 106 ] ANNIE VTI 2.3 cm2 LV EDV Index 67 ml/m2 LVOT/AV VTI 0.73 - Dimensionless index (DVI) ESV Mod BP 38 ml [ 14 - 42 ] MV E Peak Louie 1.09 m/s [ 0.60 - 1.30 ] EF Mod BP 75 % [ 54 - 74 ] MV A Peak Louie 0.78 m/s [ 1.00 - 1.20 ] Visually Estimated EF 65-70 % MV E/A 1.4 ratio [ 0.8 - 1.5 ] LV GLS -19.2 % [ -25.0 - -18.0 ] MV Decel [place] 542 LA Length 4C 6.6 cm MV Decel Time 201 msec [ 104 - 258 ] LA Length 2C 6.5 cm Med E` Louie 6.4 cm/sec [ 8.0 - 25.0 ] LA Volume BP 91 ml Lat E` Louie 10.2 cm/sec [ 10.0 - 25.0 ] LA Volume Index 40 ml/m2 [ 16 - 34 ] Average E/E` 13 RV Base Dimen 2D 3.9 cm [ 2.5 - 4.2 ] RV S` 15.5 cm/sec RV Mid Dimen 2D 3.1 cm TR Peak Louie 2.8 m/s [ 1.0 - 2.8 ] RV ED Area 16 cm2 [ 8 - 20 ] TR Peak PG 31 mmHg RV ES Area 8 cm2 [ 3 - 11 ] RA Pressure 10 mmHg RV FAC 51 % [ 35 - 63 ] RVSP 41 mmHg TAPSE 3.1 cm [ 1.7 - 5.0 ] PV Peak Louie 1.4 m/s [ 0.4 - 0.8 ] RA Volume 35 ml PV Peak PG 8 mmHg RA Volume Index 15 ml/m2 IVC Diam 2.3 cm IVC Collapse 58.9 % AoR Diam 2D 3.1 cm [ 2.7 - 3.3 ] Ao Root Index 1.4 cm/m2 [ 1.0 - 2.0 ] Asc Ao Diam 2D 3.2 cm Asc Ao Index 1.4 cm/m2 Electronically Signed By: Raya Chand MD 05/28/2025 4:53:55 PM CDT Procedure Note Raya Chand MD - 05/28/2025 [facility] [place] [address] Transthoracic Echocardiographic Report Patient Name: NAEL CARDOZA J : 1960 (64y 5m) Sex: F Study Date: 05/28/2025 02:42:22 PM Ht(Inch): 67 Wt(Lb): 261.02 BSA: 2.26 Mill Helper: Ramya Whyte RDCS Location: [facility] Order Provider:DAKSHA FULLER Heart Rate: 71 BMI: 40.88 BP: 139 / 56 Ref Provider: DAKSHA FULLER PROCEDURES: Echocardiographic Report: Transthoracic complete echo with strain imagingand contrast, 2D, spectral and tissue Doppler, color flow Doppler, M-mode. Contrast: Contrast Enhancement was Employed: After initial imaging due tosub- optimal quality related to co-morbidity defined by patient's body habitus and dueto suboptimal image quality with inadequate visualization of at least 2 of 16 LV wallsegments in any view after initial imaging. Perflutren contrast was administered using thevolume necessary to obtain adequate images. 0.8 ml Optison Administered, (2.2 mlwasted) & NS Bubble Study. INDICATIONS: K75.81 Nonalcoholic steatohepatitis (LYONS) and K74.69 Other cirrhosis ofliver. CONCLUSIONS: 1. Mildly dilated left ventricle based on volume index. Normal LV wallthickness. There is hyperdynamic left ventricular systolic function. The Ejection Fraction(Pitts's) is measured at 75 %. The Ejection Fraction is visually estimated to be 65-70%. Grade II diastolic dysfunction (elevated mean LA pressure). The average globallongitudinal strain is normal. 2. Resting Segmental Wall Motion Analysis: Total wall motion score is1.00. There are no regional wall motion abnormalities. 3. Normal right ventricular size. Normal right ventricular systolicfunction. 4. Agitated saline bubble study is negative for intracardiac shunt at restand post-Valsalva. 5. The estimated pulmonary artery systolic pressure is 41.0 mmHg. COMPARISONS: Compared with prior study dated 04/22/2024, I did not see any bubblecrossover on today's study. Otherwise, the right and left ventricular systolic function aresimilar and there are no new valvular abnormalities. ATTESTATION: I have personally reviewed and interpreted this study without fellow orresident. DISCLAIMER: The study images and the final report will be retained in the patientchart by the Echo Laboratory for the legally required time period. This chart constitutesthe legal record of any testing performed. FINDINGS: Left Ventricle: Mildly dilated left ventricle based on volume index.Normal LV wall thickness. There is hyperdynamic left ventricular systolic function. TheEjection Fraction (Pitts's) is measured at 75 %. The Ejection Fraction isvisually estimated to be 65-70 %. Grade II diastolic dysfunction (elevated mean LA pressure).The average global longitudinal strain is normal. The LV global strain is: -19.2 %. Resting Segmental Wall Motion Analysis: Total wall motion score is 1.00.There are no regional wall motion abnormalities. Right Ventricle: Normal right ventricular size. Normal right ventricularsystolic function. Left Atrium: Mildly dilated left atrium. Right Atrium: The right atrium is normal in size. Atrial Septum: Normal interatrial septum. Agitated saline bubble study isnegative for intracardiac shunt at rest and post-Valsalva. Mitral Valve: Mitral valve leaflets appear mildly thickened. Mildcalcification. Mild mitral annular calcification. Mild mitral valve regurgitation. No stenosispresent. Aortic Valve: Trileaflet aortic valve. Mildly calcified aortic valveleaflets. No aortic valve stenosis. The mean transaortic gradient is 8 mmHg. The aortic valvearea by the continuity equation (using VTI) is 2.3 cm2. Aortic valve dimensionlessindex is 0.73. Tricuspid Valve: Normal tricuspid valve structure. Mild tricuspidregurgitation. No tricuspid valve stenosis. Pulmonic Valve: The pulmonic valve is not well visualized due to pooracoustic windows. No pulmonic regurgitation. No pulmonic valve stenosis present. Pericardium: Normal pericardium without pericardial effusion. Aorta: Normal aortic root size at sinuses of Valsalva. The ascending aortais normal in size when indexed. IVC: The IVC was >2.1 cm and collapsibility >50%. (est. RA pressure 6-10mmHg). The estimated RA pressure is 10 mmHg. PASP: The estimated pulmonary artery systolic pressure is 41.0 mmHg. Rhythm: Normal Sinus rhythm was seen during the study. MEASUREMENTS: 2D/MM Value Range DopplerValue Range LVIDd 2D 5.4 cm [ 3.8 - 5.2 ] AV Peak Vel2.0 m/s [ 1.0 - 1.7 ] LVIDs 2D 2.9 cm [ 2.2 - 3.5 ] AV Peak PG16 mmHg IVSd 2D 0.9 cm [ 0.6 - 0.9 ] AV Mean PG8 mmHg LVPWd 2D 0.9 cm [ 0.6 - 0.9 ] AV VTI45 cm LV Thickness Ratio 1.0 LVOT Peak Vel1.6 m/s [ 0.7 - 1.1 ] LV FS 2D 46.09 % [ 27.00 - 45.00 ] LVOT Peak PG10 mmHg LV Mass 2D 185.17 g LVOT Mean PG5 mmHg LV Mass Index 2D 81.78 g/m2 LVOT VTI33 cm RWT 0.33 LVOT Diam2.0 cm EDV Mod BP 151 ml [ 46 - 106 ] ANNIE VTI2.3 cm2 LV EDV Index 67 ml/m2 LVOT/AV VTI0.73 - Dimensionless index (DVI) ESV Mod BP 38 ml [ 14 - 42 ] MV E Peak Vel1.09 m/s [ 0.60 - 1.30 ] EF Mod BP 75 % [ 54 - 74 ] MV A Peak Vel0.78 m/s [ 1.00 - 1.20 ] Visually Estimated EF 65-70 % MV E/A1.4 ratio [ 0.8 - 1.5 ] LV GLS -19.2 % [ -25.0 - -18.0 ] MV Decel [id number] LA Length 4C 6.6 cm MV Decel [id number] msec [ 104 - 258 ] LA Length 2C 6.5 cm Med E` Vel6.4 cm/sec [ 8.0 - 25.0 ] LA Volume BP 91 ml Lat E` Vel10.2 cm/sec [ 10.0 - 25.0 ] LA Volume Index 40 ml/m2 [ 16 - 34 ] Average E/E`13 RV Base Dimen 2D 3.9 cm [ 2.5 - 4.2 ] RV S`15.5 cm/sec RV Mid Dimen 2D 3.1 cm TR Peak Vel2.8 m/s [ 1.0 - 2.8 ] RV ED Area 16 cm2 [ 8 - 20 ] TR Peak PG31 mmHg RV ES Area 8 cm2 [ 3 - 11 ] RA Fuhcuyoh23 mmHg RV FAC 51 % [ 35 - 63 ] RVSP41 mmHg TAPSE 3.1 cm [ 1.7 - 5.0 ] PV Peak Vel1.4 m/s [ 0.4 - 0.8 ] RA Volume 35 ml PV Peak PG8 mmHg RA Volume Index15 ml/m2 IVC Diam2.3 cm IVC Collapse 58.9 % AoR Diam 2D 3.1 cm [ 2.7 - 3.3 ] Ao Root Index 1.4 cm/m2 [ 1.0 - 2.0 ] Asc Ao Diam 2D3.2 cm Asc Ao Index1.4 cm/m2 Electronically Signed By: Raya Chand MD 05/28/2025 4:53:55 PM CDT us Daksha Fuller MD CV ECHO PROCEDURES Ju l Result * (ABNORMAL) POCT hemoglobin A1c (05/28/2025 12:32 PM CDT) Hemoglobin A1C, POC 5.9(A) 4.0 - 5.6 % Blood 05/28/2025 12:3 2 PM CDT Marina Kennedy MD PhD POINT OF CARE TEST ORDERA BLES Final Result * POCT glucose (05/28/2025 12:32 PM CDT) Glucose Blood, POC 202 Normal Fasting 70 - 100, Random <200 mg/dL Blood 05/28/2025 12:3 2 PM CDT Result [facility] Marina Kennedy MD PhD POINT OF CARE TEST ORDERA BLES Final Result * (ABNORMAL) eGFR (05/12/2025 10:46 AM CDT) eGFR 27(L) >=60 mL/min/1. 73 m2 Comment: Interpretive Data [...] interpretive data was last reviewed 2021. Blood 05/12/2025 10:4 6 AM CDT 05/12/2025 11:36 AM CDT us Daksha Fuller MD LAB BLOOD ORDERABLES Fi nal Result [facility] Department [place] [address] * (ABNORMAL) Differential, auto (05/12/2025 10:46 AM CDT) Neutrophil abs 3.23 1.50 - 6.50 K/cumm Imm gran abs 0.02 0.00 - 0.10 K/cumm [facility] Lymphocyte abs 0.58(L) 0.80 - 3.30 K/cumm [facility] Monocyte abs 0.46 0.20 - 0.80 K/cumm [facility] Eosinophil abs 0.28 0.00 - 0.50 K/cumm [facility] Basophil abs 0.02 0.00 - 0.10 K/cumm [facility] Neutrophil pct 70.5 % [facility] Comment: Interpretive Data Percent cell count reference ranges are not reported, since discordance with absolute values may lead to misinterpretation of CBC data. Current Interpretive Data was last revised on 2017. Imm gran pct 0.4 % [facility] Comment: Interpretive Data Percent cell count reference ranges are not reported, since discordance with absolute values may lead to misinterpretation of CBC data. Current Interpretive Data was last revised on 2017. Lymphocyte pct 12.6 % [facility] [facility] Comment: Interpretive Data Percent cell count reference ranges are not reported, since discordance with absolute values may lead to misinterpretation of CBC data. Current Interpretive Data was last revised on 2017. Monocyte pct 10.0 % CHARISSA [facility] Comment: Interpretive Data Percent cell count reference ranges are not reported, since discordance with absolute values may lead to misinterpretation of CBC data. Current Interpretive Data was last revised on 2017. Eosinophil pct 6.1 % CHARISSA [facility] Comment: Interpretive Data Percent cell count reference ranges are not reported, since discordance with absolute values may lead to misinterpretation of CBC data. Current Interpretive Data was last revised on 2017. Basophil pct 0.4 % [facility] Comment: Interpretive Data Percent cell count reference ranges are not reported, since discordance with absolute values may lead to misinterpretation of CBC data. Current Interpretive Data was last revised on 2017. Blood 05/12/2025 10:4 6 AM CDT 05/12/2025 11:25 AM CDT Daksha Fuller MD LAB BLOOD ORDERABLES Fi nal Result Performing Organization Address [facility] Co de Phone Number [facility] Department [place] [address] * (ABNORMAL) CBC with auto differential (05/12/2025 10:46 AM CDT) WBC 4.59 3.80 - 9.90 K/cumm Hgb 10.6(L) 11.9 - 15.5 g/dL [facility] Hct 30.6(L) 35.6 - 45.5 % [facility] Plt 76(L) 150 - 400 K/cumm [facility] MPV 12.1 9.1 - 12.3 fL [facility] RBC 3.49(L) 3.90 - 5.20 M/cumm [facility] MCV 87.7 81.3 - 96.4 fL [facility] MCH 30.4 27.1 - 33.3 pg [facility] MCHC 34.6 32.3 - 35.7 g/dL [facility] RDW CV 14.2 11.1 - 14.9 % [facility] RDW SD 45.0 35.7 - 48.1 fL [facility] NRBC abs 0.00 0.00 - 0.01 K/cumm [facility] Blood 05/12/2025 10:4 6 AM CDT 05/12/2025 11:25 AM CDT Daksha Fuller MD LAB BLOOD ORDERABLES Fi nal Result Performing Organization Address [facility]/ZIP Co de Phone Number [facility] Department [place] [address] * [id number], Tumor Marker (05/12/2025 10:46 AM CDT) alpha Fetoprotein <2.0 <=8.3 ng/mL [...] 2018;57:783-797 Katya House et al. Clin Chem 2014;9017-0792. Current interpretive data was last revised 2022. Blood 05/12/2025 10:4 6 AM CDT 05/12/2025 11:25 AM CDT Daksha Fuller MD LAB BLOOD ORDERABLES Fi nal Result [facility] Department [place] [address] * (ABNORMAL) Protime-INR (05/12/2025 10:46 AM CDT) PT 13.9(H) 10.2 - 13.5 sec INR 1.24(H) 0.90 - 1.20 CHARISSA [facility] Comment: Interpretive data Oral anticoagulant therapeutic ranges: Venous thromboembolism prophylaxis or treatment: 2.0-3.0 CARDIOLOGY Standard range: 2.0-3.0 High-intensity range: 2.5-3.5 Refer to indication-specific guidelines for appropriate target ranges for prosthetic heart valve replacement. Current interpretive data was last revised on 2019. Blood 05/12/2025 10:4 6 AM CDT 05/12/2025 11:25 AM CDT us Daksha Fuller MD LAB BLOOD ORDERABLES Fi nal Result [facility] Department [place] [address] * (ABNORMAL) Comprehensive metabolic panel (05/12/2025 10:46 AM CDT) Sodium 138 135 - 145 mmol/L Potassium, pl 3.7 3.3 - 4.9 mmol/L [facility] Chloride 97 97 - 110 mmol/L [facility] CO2 29 22 - 32 mmol/L [facility] Anion gap 12 2 - 15 mmol/L [facility] BUN 33(H) 6 - 25 mg/dL [facility] Creatinine 2.00(H) 0.60 - 1.10 mg/dL [facility] Glucose 163 70 - 199 mg/dL [facility] [...] Calcium 9.7 8.5 - 10.3 mg/dL [facility] Bilirubin, total 2.2(H) 0.1 - 1.2 mg/dL [facility] Protein, pl 6.6 6.5 - 8.5 g/dL [facility] Albumin 3.3(L) 3.5 - 5.0 g/dL [facility] Alk phos 91 40 - 130 Units/L [facility] ALT 30 7 - 45 Units/L [facility] AST 49(H) 10 - 45 Units/L [facility] Blood 05/12/2025 10:4 6 AM CDT 05/12/2025 11:25 AM CDT us Daksha Fuller MD LAB BLOOD ORDERABLES Fi nal Result CHARISSA [facility] Department [place] [address] * Pap and High Risk HPV and Genotyping (Cytology Component) (04/28/2024 10:41 AM CDT) Thin prep (Pap test) 04/28/2024 10:41 AM CDT 04/28/2024 1:00 PM CDT Narrative PATHOLOGY [facility] - 05/04/2024 4:21 PM CDT EPIC results best viewed via link to PDF [facility] Chelsea Cronin [facility] [place] [address] Note to Patients: This report may contain [...] Gender: Michelle : 1960 (Age: 63) Address: [address] [place] [id number] Hospital #: [id number] Service: Medical Location: [place] [address] Patient Type: [facility] Inpatient Taken: 04/28/2024 Received: 04/28/2024 [...] virus (HPV) is performed by the Becki Vianca 6800 HPV test. This assay specifically detects [...] this test have been verified by the [facility] Molecular Infectious Disease laboratory. Correlate with reported cytology results, as applicable. Interpretive data last revised [facility]05/04/2024 16:21 JEANNIE Worthington(ASCP) Report Electronically Reviewed [...] histologic results be correlated for laboratory quality compliance coordinator & improvement standards. FOR ALL HIGH-GRADE [...] determined by the Surgical Pathology Department at [facility] as part of an ongoing quality compliance coordinator program and in compliance with federally [...] determined by the Surgical Pathology Department of [facility]. It has not been cleared or approved by the U. S. Food and Drug Administration. Eladio Carey MD LAB CYTOLOGY ORDERABLES Final Result Performing Organization Address City/State/[facility] Co de Phone Number PATHOLOGY [facility] 3rd Floor [place], [place] [phone] * Screening Mammogram Bilateral W Pal (04/27/2024 1:55 PM CDT) Anatomical Region Laterality Modality Breast Bilateral Mammography Narrative 04/27/2024 1:52 PM CDT Mammogram Technique: Bilateral Digital Breast Tomosynthesis, Bilateral C-view 2D Screening mammogram. Views obtained: bilateral craniocaudal and bilateral mediolateral oblique. Computer Aided Detection was performed. Mammogram Findings: The present examination has been compared to prior imaging studies performed at [facility] on 05/15/2021 and 12/06/2021. There are scattered [...] compared to prior imaging studies performed at [facility] on 05/15/2021 and 12/06/2021. There are scattered areas of fibroglandular density. There is no suspicious abnormality in either breast. Impression: There is no mammographic evidence of malignancy. Annual screening mammography is recommended. OVERALL FINAL ASSESSMENT: BI-RADS CATEGORY 1: Negative. Benton Tomas MD IMG MAMMO PROCEDURES Fi nal Result * COLONOSCOPY (05/30/2022 9:28 AM CDT) Anatomical Region Laterality Modality Other Narrative Procedure Note Pat Robins MD - 05/30/2022 9:28 AM CDT GI ENDOSCOPY [facility] Patient Name: Nael Cardoza Procedure Date: 05/30/2022 9:28 AM Date of : 1960 Admit Type: Outpatient Age: 61 Gender: Female Attending MD: Pat Robins M.D. Room: [facility] ENDOSCOPY ROOM 3 Note Status: [...] scope was passed under direct vision.The PCF [id number] endoscope was introducedthrough the anus and [...] On: 05/30/2022 9:28 AM Recognized by the [employer] for promoting quality in endoscopy Pat Robins MD ENDOSCOPY PROCEDURES Ju l Result * Albumin Creatinine Ratio, Urine (03/01/2021 2:45 PM CDT) Albumin Ur <12.0 mg/L [facility] Comment: Interpretive Data No reference range established. Current interpretive data was last revised 2018. Creatinine Ur 59.5 mg/dL [facility] Comment: Interpretive Data No reference range established. Current interpretive data was last revised 2018. Albumin Creatinine Ratio, Ur <20 1 - 29 mg/g [facility] Urine 03/01/2021 2:45 PM CDT 03/01/2021 3:41 PM CDT Oly Baker MD LAB URINE ORDER RAVEN Final Result [facility] Department [place] [address] from Last 3 Months or Most Recently [...] risk 20 Barriers to Medication Adherence 07/12/2025 [facility] [facility] [employer] OOS Member Subscriber Plan / Payer (Ef fective 2021-Present) Name:Nael Cardoza Relation to Subscriber:Self Name:Nael Cardoza Amanda Payer ID:[id number] (NAIC) Type:BC ALLIANCE Address: [address] TRANSPLANT [employer] [facility] MEDICARE ADVANTAGE [facility] MEDICARE ADVANTAGE TRANSPLANT [employer] MED[employer] RISK TRANSPLANT [employer] MED[employer] RISK Advance Directives For more information, please contact: [phone] * Full Code (Latest Code Status on File) Date Activated Date Inactivated Comments 06/29/2025 11:04 PM 07/09/2025 10:57 PM * Full Code Date Activated Date Inactivated Comments 06/29/2025 5:23 PM 06/29/2025 11:04 PM * Full Code Date Activated Date Inactivated Comments 12/14/2024 8:30 AM 12/14/2024 2:14 PM * Full Code Date Activated Date Inactivated Comments 09/24/2024 6:33 PM 10/02/2024 9:03 PM * Full Code Date Activated Date Inactivated Comments 04/21/2024 8:02 PM 04/29/2024 8:05 PM Care Teams Pile Operator Relationship Specialty Start Date End Date Maddy Romano MD [address] [place] [address] PCP - General 09/28/16 Manas Ibarra MD [address] [place], [place] [address] Referring Physician Thoracic Surgery 11/05/18 Zion Barton MD [address] [place] [address] Radiation Oncologist Radiation Oncology 05/05/19 Molina Charles MD [address] [facility] [address] [place] [address] Referring Physician Transplant Hepatology 12/15/20 Karuna Maria, OT Occupational Therapist Occupational Therapy 09/20/22 Renu Treviño NP [address] [facility] [address] [place] [address] Nurse Practitioner Radiation Oncology 11/08/22 Eladio Mcrae MD [address] [place] [address] Referring Physician Obstetrics and Gynecology 11/15/22 Marcy Schroeder, RN [address] [place] [address] E Commerce Merchandising Coordinator 04/27/24 Chelsea Barker, chemistry specialistE Commerce Merchandising Coordinator 11/13/24 Marina Le, RN [address] [facility] [address] [place] [address] SHOP Outpatient Ambulance Dispatcher 07/12/25
--- OUTSIDE RECORDS SUMMARY | 2025-07-26 17:22 | XMS_ITS | Encounter Summary ---
Author Organization [facility] [employer] [facility] Address [address] [place] [address] Phone Care Team Providers Care Machine Plug Shaper Name Role Phone Maddy Romano MD Primary Care Provider [phone] Astrid Haq NP Unavailable Mnaas Ibarra MD Unavailable Zion Barton MD Unavailable Molina Charles MD Unavailable [phone] Inés Lemus RN Unavailable [phone] Karuna Maria OT Unavailable Unavaila Renu Paul NP Unavailable [phone] Eladio Mcrae MD Unavailable [phone] Marcy Schroeder RN Unavailable [phone] Briana Poe RN Unavailable [phone] Marina Le RN Unavailable Chelsea Barker RN Unavailable Unavail able Marina Le RN Unavailable [phone] Encounter Details Date Type Department Care Team (Late st Contact Info) Description 06/16/2021 Orders Only [facility] Scanning, Provider Social History Tobacco Use Types Packs/Day Years Used Date Smoking Tobacco: Former Cigarettes Q uit: 2010 Smokeless Tobacco: Never Comments No Sex and Gender Information Value Date Recorded Sex Assigned at Not on file Legal Sex Female 8:22 AM GOLD CHARMER Gender Identity Female 11/15/2021 2:30 AM CDT [...] encounter Results * SCAN - LABS (06/16/2021) Provider Scanning Final Result documented in this [...] Suspected 09/24/2024 09/24/2024 09/24/2024 3:13 PM GOLD CHARMER COVID: Suspected 06/28/2025 06/28/2025 06/29/2025 12:02 AM GOLD CHARMER Ring Surveillance: C. auris Comment:[id number] 07/01/2025 07/01/2025 07/06/2025 9:[address] documented as of this encounter Care Teams Machine Plug Shaper Relationship Specialty Start Date End Date Maddy Romano MD [address] [place] [address] PCP - General 09/28/16 Astrid Haq NP [address] [place] [address] Nurse Practitioner Radiation Oncology 11/05/18 11/07/22 Manas Ibarra MD [address] [place] [address] Referring Physician Thoracic Surgery 11/05/18 Zion Barton MD [address] [place] [address] Radiation Oncologist Radiation Oncology 05/05/19 Molina Charles MD 1 [facility] [address] [place] [address] Referring Physician Transplant Hepatology 12/15/20 Inés Lemus RN [address] [facility] [address] [place] [address] Byproduct Engineer 10/31/21 5 Karuna Maria, OT Occupational Therapist Occupational Therapy 09/20/22 Renu Treviño NP [address] [facility] [address] [place] [address] Nurse Practitioner Radiation Oncology 11/08/22 Eladio Mcrae MD [address] [place] [address] Referring Physician Obstetrics and Gynecology 11/15/22 Marcy Schroeder RN [address] [place] [address] Byproduct Engineer 04/27/24 Briana Poe RN [address] [address] SHOP Outpatient Miter Sawyer 04/30/24 05/28/24 Marina Le RN [address] [address] SHOP Outpatient Miter Sawyer 10/05/24 10/26/24 Chelsea Barker, care team coordinator schedulerByproduct Engineer 11/13/24 Marina Le, RN [address] [id number] SHOP Outpatient Miter Sawyer 07/12/25 documented as of this encounter
--- OUTSIDE RECORDS SUMMARY | 2025-07-26 17:22 | XMS_ITS | Encounter Summary ---
Author Organization [facility] Healthcare Address [address] [place] [address] Care Team Providers Care Ship Painter Helper Name Role Phone Maddy Romano MD Primary Care Provider + [phone] Astrid Haq NP Unavailable [phone] Manas Ibarra MD Unavailable Zion Barton MD Unavailable [phone] Molina Charles MD Unavailable +[phone] Inés Lemus RN Unavailable [phone] Karuna Maria OT Unavailable Unavaila Renu Paul NP Unavailable [phone] Eladio Mcrae MD Unavailable [phone] Marcy Schroeder RN Unavailable [phone] Briana Poe RN Unavailable [phone] Marina Le RN Unavailable [phone] Chelsea Barker RN Unavailable Unavail able Marina Le RN Unavailable [phone] Reason for Visit * Reason Onset Date Comments Ready to scheduled 04/26/2022 Encounter Details Date Type Department Care Team (Late st Contact Info) Description 04/26/2022 Telephone [facility] Specialty Services [address] [place] [phone] Miscellaneous, Not In File Ready to scheduled [...] on file Legal Sex Female 8:22 AM STOGY MAKER Gender Identity Female 11/15/2021 2:30 AM [...] steatohepatitis (MASH) COLONOSCOPY Routine adult health maintenance LYNOS (nonalcoholic [...] COVID: Suspected 09/24/2024 09/24/2024 09/24/2024 3:13 PM STOGY MAKER COVID: Suspected 06/28/2025 06/28/2025 06/29/2025 12:02 AM STOGY MAKER Ring Surveillance: C. auris Comment:[id number] 07/01/2025 07/01/2025 07/06/2025 9:[address] documented as of this encounter Care Teams Ship Painter Helper Relationship Specialty Start Date End Date Maddy Romano MD [address] [place] [address] PCP - General 09/28/16 Astrid Haq NP [address] [place], [place] [address] Nurse Practitioner Radiation Oncology 11/05/18 11/07/22 Manas Ibarra MD [address] [place], [place] [address] Referring Physician Thoracic Surgery 11/05/18 Zion Barton MD [address] [place], [place] [address] Radiation Oncologist Radiation Oncology 05/05/19 Molina Charles MD [address] [place] [address] [address] [place] [address] Referring Physician Transplant Hepatology 12/15/20 Inés Lemus, RN [address] [facility] [address] [place] [address] Acidizer Water Well 10/31/21 5 Karuna Maria, OT Occupational Therapist Occupational Therapy 09/20/22 Renu Treviño NP [address] [facility] [address] [place] [address] Nurse Practitioner Radiation Oncology 11/08/22 Eladio Mcrae MD [address] [place] [address] Referring Physician Obstetrics and Gynecology 11/15/22 Marcy Schroeder, RN [address] [place] [address] Acidizer Water Well 04/27/24 Briana Poe RN [address] [address] SHOP Outpatient Boxing Machine Operator 04/30/24 05/28/24 Marina Le, RN [address] [address] SHOP Outpatient Boxing Machine Operator 10/05/24 10/26/24 Chelsea Barker, restaurant recruiterAcidizer Water Well 11/13/24 Marina Le, RN [address] [address] SHOP Outpatient Boxing Machine Operator 07/12/25 documented as of this encounter
--- OUTSIDE RECORDS SUMMARY | 2025-07-26 17:22 | XMS_ITS ---
Author Organization [facility] al Address [address] [place] [address] Care Team Providers Care Records Management Analyst Name Role Phone Maddy Romano MD Primary Care Provider + [phone] Mansa Ibarra MD Unavailable Zion Barton MD Unavailable [phone] Molina Charles MD Unavailable [phone] Karuna Maria OT Unavailable Unavaila Renu Paul NP Unavailable [phone] Eladio Mcrae MD Unavailable [phone] Marcy Schroeder RN Unavailable [phone] Chelsea Barker RN Unavailable Unavail able Marina Le RN Unavailable [phone] Transplant Episode Kidney Candidate [facility] ([place], [place]) - [facility] Center waitlisted on 05/07/2024 Marked as Active on 07/01/2025 Reason: Listed in [facility] Kidney CoordinatorMarcy Schroeder RN Email: N/A Scores Score Value Updated Exceptions/Reas ons CPRA Not available EPTS (Calc) 57 07/26/2025 [place] Organ Diagnosis Organ Primary Contributory Kidney Other, Specify - 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
== END 2025-07-26 14:57 | disposition home or self-care (01) ==
LOC: CHSLAB 14:57
PROVIDERS: PCP Internal Medicine; Visit Provider Internal Medicine
DX: K74.69 Other cirrhosis of liver (principal)
CPT/HCPCS: 36415; 80053; 85027; 85610

== ENCOUNTER 2025-08-02 13:55 | Outpatient (CLI) | payer MEDICARE, SELFPAY ==
--- OUTSIDE RECORDS SUMMARY | 2025-03-18 03:10 | XMS_ITS ---
Author Organization [facility] Address [address] [place], [place] [id number] Care Team Providers Care Matrix Worker Name Role Phone IVAN HARDIN Unavailable [phone] Leisa Romano Unavailable Unavailable BALDEV TAPIA Unavailable [phone] Allergies Allergen (clinical drug ingredient) Drug/Non Drug [...] 03/18/2025 Encounters Encounter Location Date Provider Diagnosis [address] [id number] 03/18/2025 BALDEV TAPIA Tinea unguium B35.1 ; Pain in right toe(s) M79.674 ; Pain in left toe(s) M79.675 ; Atherosclerosis of [place] arteries of extremities with intermittent claudication, bilateral [...] toe(s) (ICD-10 - M79.675) 03/18/2025 Atherosclerosis of [place] arteries of extremities with intermittent claudication, bilateral [...] * Aleah CARDOZADOB: [birth year] (64 yo F)Acc No.[id number]:03/18/2025 Patient: Aleah Garcia Provider: Gisela TAPIA :1960 A ge:64 Y S ex:Female Date:03/18/2025 Address:[facility] [address] [id number] Subjective: * Chief Complaints: * * General [...] - M79.675 4 . A therosclerosis of [place] arteries of extremities with intermittent claudication, bilateral [...] problems develop.) Billing Information: * Visit Code: 81630 Office Visit, Est Pt., Level 3. * Procedure Codes: * Electronic signature of MAURICE TAPIA DPM on 08/02/2025 at 03:46 PM INSURANCE AGENCY SALES MANAGER Sign off status: Pending * Provider: Gisela TAPIA Date: 0 03/18/2025 Generated for Jose lora/Katlin/Romel on: 1 10/03/2024 03:46 PM INSURANCE AGENCY SALES MANAGER
[2025-08-02 14:11] LABS: Hematocrit 31.5 % (35.0-49.0); Hemoglobin 10.0 g/dL (12.0-15.0); Immature Platelet Fraction Pct 2.1 % (1.0-7.0); Mean Corpuscular HGB Conc 31.7 g/dL (32-36); Mean Corpuscular Hemoglobin 27.6 pg (27.0-31.0); Mean Corpuscular Volume 87.0 fL (78.0-102.0); Platelet Count Result 52 K/mm3 (150-420); Red Blood Count 3.62 M/mm3 (4.20-5.40); White Blood Count 5.2 K/mm3 (4.8-10.8)
[2025-08-02 14:22] LABS: INR 3.0; Prothrombin Time 29.8 Seconds (9.50-12.1)
[2025-08-02 14:43] LABS: Band Neutrophils Percent 1 % (0-6); Eosinophils Absolute Manual 0.10 K/mm3 (0.02-0.50); Eosinophils Percent Manual 2 % (1-6); Lymphocytes Absolute Manual 0.78 K/mm3 (1.1-4.5); Lymphocytes Percent Manual 15 % (18-44); Monocytes Absolute Manual 0.52 K/mm3 (0.1-0.90); Monocytes Percent Manual 10 % (3-9); Neutrophils Absolute Manual 3.90 K/mm3 (1.3-6.7); Neutrophils Percent Manual 74 % (46-73)
[2025-08-02 14:44] LABS: Basophils Absolute Manual 0.26 K/mm3 (0-0.1); Basophils Percent Manual 5 % (0-1)
[2025-08-02 14:56] LABS: Alanine Aminotransferase 21 U/L (6-35); Albumin Level 3.8 g/dL (3.5-5.1); Alkaline Phosphatase 74 U/L (38-126); Anion Gap 9 mmol/L (4-12); Aspartate Amino Transferase 36 U/L (14-36); Bilirubin,Total 2.9 mg/dL (0.2-1.3); Blood Urea Nitrogen 20 mg/dL (7-17); Calcium 9.2 mg/dL (8.4-10.2); Carbon Dioxide 28 mmol/L (22-30); Chloride 102 mmol/L (98-107); Estimated Glomerular Filt Rate 39; Glucose 163 mg/dL (65-110); Osmolality Calculated 294 mOsm/kg (285-295); Potassium 3.3 mmol/L (3.4-5.0); Sodium 139 mmol/L (137-145); Total Protein 6.6 g/dL (6.3-8.2)
--- OUTSIDE RECORDS SUMMARY | 2025-08-02 15:46 | XMS_ITS | Encounter Summary ---
Author Organization [facility] Healthcare Address [address] [place] [address] Care Team Providers Care Senior Research Analyst Name Role Phone Maddy Romano MD Primary Care Provider + [phone] Manas Ibarra MD Unavailable Zion Barton MD Unavailable Molina Charles MD Unavailable [phone] Karuna Maria OT Unavailable Unavaila Renu Paul NP Unavailable [phone] Eladio Mcrae MD Unavailable [phone] Marcy Schroeder RN Unavailable [phone] Chelsea Barker RN Unavailable Unavail able Marina Le RN Unavailable [phone] Encounter Details Date Type Department Care Team (Latest Contact Info) Description 05/31/2025 Results Follow-Up [facility] Transplant Liver [address] [facility] [address] [place] [address] Chelsea Barker, TYRA Transthoracic Echo (TTE) With Bubble Study Social History Tobacco Use Types Packs/Day Years Used Date Smoking Tobacco: Former Cigarettes 0.5 51 1 970 - 2020 Smokeless Tobacco: Never Social Connection and Isolation Panel Answer Date Recorded In a typical week, how many times do you talk on the phone with family, friends, or neighbors? More than three times a week 10/05/2024 How often do you get togethe r with friends or relatives? More than three times a week 10/05/2024 How often do you attend chur ch or mandaeism services? Never 10/05/2024 Do you belong to [...] any time in the past 12 [facility], were you homeless or living in a senior living (including now)? No 10/05/2024 Humiliation, Afraid, Rape, [...] often do you attend chur ch or mandaeism services? Never 07/12/2025 Do you belong to [...] care, and heating? Not very hard 07/12/2025 [facility] New Point of Occupat ional Health - Occupational Stress [...] any time in the past 12 m [facility], were you homeless or living in a senior living (including now)? No 07/12/2025 [facility] Utilities Answer Date Recorded In [...] on file Legal Sex Female 8:22 AM CHAIR TRIMMER Gender Identity Female 11/15/2021 2:30 AM [...] COVID: Suspected 06/28/2025 06/28/2025 06/29/2025 12:02 AM CHAIR TRIMMER Ring Surveillance: C. auris Comment:[id number] 07/01/2025 07/01/2025 07/06/2025 9:[address] documented as of this encounter Care Teams Senior Research Analyst Relationship Specialty Start Date End Date Maddy Romano MD [address] [place] [address] PCP - General 09/28/16 Manas Ibarra MD [address] [place] [address] Referring Physician Thoracic Surgery 11/05/18 Zion Barton MD [address] [place], [place] [address] Radiation Oncologist Radiation Oncology 05/05/19 Molina Charles MD 1 [facility] [address] [place] [address] Referring Physician Transplant Hepatology 12/15/20 Karuna Maria, OT Occupational Therapist Occupational Therapy 09/20/22 Renu Treviño NP [address] [facility] [address] [place] [address] Nurse Practitioner Radiation Oncology 11/08/22 Eladio Mcrae MD [address] [place], [place] [address] Referring Physician Obstetrics and Gynecology 11/15/22 Marcy Schroeder, RN [address] [place] [address] Stenciler 04/27/24 Chelsea Barker, enterprise solutions architectStenciler 11/13/24 Marina Le, RN [address] [facility] [address] [place] [address] SHOP Outpatient Wireless Sales Consultant 07/12/25 07/29/25 documented as of this encounter
--- OUTSIDE RECORDS SUMMARY | 2025-08-02 15:46 | XMS_ITS | Encounter Summary ---
Author Organization [facility] Address [address] [place] [address] Phone Care Team Providers Care Group Home Worker Name Role Phone Maddy Romano MD Primary Care Provider [phone] Astrid Haq FIBREGLASS GUN HAND Unavailable [phone] Manas Ibarra MD Unavailable Zion Barton MD Unavailable Molina Charles MD Unavailable +[phone] Inés Lemus RN Unavailable [phone] Karuna Maria OT Unavailable Unavaila Renu Paul NP Unavailable [phone] Eladio Mcrae MD Unavailable [phone] Marcy Schroeder RN Unavailable [phone] Briana Poe RN Unavailable [phone] Marina Le RN Unavailable Chelsea Barker RN Unavailable Unavail able Marina Le RN Unavailable [phone] Encounter Details Date Type Department Care Team (Late st Contact Info) Description 09/07/2021 Orders Only [facility] Scanning, Provider Social History Tobacco Use Types Packs/Day Years Used Date Smoking Tobacco: Former Cigarettes Q uit: 2010 Smokeless Tobacco: Never Comments No Sex and Gender Information Value Date Recorded Sex Assigned at Not on file Legal Sex Female 8:22 AM BELT TENDER Gender Identity Female 11/15/2021 2:30 AM [...] COVID: Suspected 09/24/2024 09/24/2024 09/24/2024 3:13 PM BELT TENDER COVID: Suspected 06/28/2025 06/28/2025 06/29/2025 12:02 AM BELT TENDER Ring Surveillance: C. auris Comment:[id number] 07/01/2025 07/01/2025 07/06/2025 9:[address] documented as of this encounter Care Teams Group Home Worker Relationship Specialty Start Date End Date Maddy Romano MD [address] [place] [address] PCP - General 09/28/16 Astrid Haq NP [address] [place] [address] Nurse Practitioner Radiation Oncology 11/05/18 11/07/22 Manas Ibarra MD [address] [place] [address] Referring Physician Thoracic Surgery 11/05/18 Zion Barton MD [address] [place] [address] Radiation Oncologist Radiation Oncology 05/05/19 Molina Charles MD 1 [facility] [address] [place] [address] Referring Physician Transplant Hepatology 12/15/20 Inés Lemus RN 45[address] [facility] [address] [place] [address] Mental Health Orderly 10/31/21 5 Karuna Maria, OT Occupational Therapist Occupational Therapy 09/20/22 Renu Treviño NP 49[address] [facility] [address] [place] [address] Nurse Practitioner Radiation Oncology 11/08/22 Eladio Mcrae MD [address] [place] [address] Referring Physician Obstetrics and Gynecology 11/15/22 Marcy Schroeder RN [address] [place] [address] Mental Health Orderly 04/27/24 Briana Poe RN [address] [address] SHOP Outpatient Supervisor Cell Room 04/30/24 05/28/24 Marina Le RN [address] [address] SHOP Outpatient Supervisor Cell Room 10/05/24 10/26/24 Chelsea Barker, supreme court judgeMental Health Orderly 11/13/24 Marina Le, RN [address] [id number] [facility] Outpatient Supervisor Cell Room 07/12/25 07/29/25 documented as of this encounter
--- OUTSIDE RECORDS SUMMARY | 2025-08-02 15:46 | XMS_ITS | Encounter Summary ---
Author Organization [facility] Address [address] [place] [address] Phone Care Team Providers Care Candy Cutter Hand Name Role Phone Maddy Romano MD Primary Care Provider [phone] Astrid Haq BINDING MACHINE OPERATOR Unavailable Manas Ibarra MD Unavailable Zion Barton MD Unavailable Molina Charles MD Unavailable +[phone] Inés Lemus RN Unavailable [phone] Karuna Maria OT Unavailable Unavaila Renu Paul NP Unavailable [phone] Eladio Mcrae MD Unavailable [phone] Marcy Schroeder RN Unavailable [phone] Briana Poe RN Unavailable [phone] Marina Le RN Unavailable [phone] Chelsea Barker RN Unavailable Unavail able Marina Le RN Unavailable [phone] Encounter Details Date Type Department Care Team (Late st Contact Info) Description 10/11/2021 Orders Only [facility] Scanning, Provider Social History Tobacco Use Types Packs/Day Years Used Date Smoking Tobacco: Former Cigarettes Q uit: 2010 Smokeless Tobacco: Never Comments No Sex and Gender Information Value Date Recorded Sex Assigned at Not on file Legal Sex Female 8:22 AM PLANTING MACHINE OPERATOR Gender Identity Female 11/15/2021 2:30 [...] COVID: Suspected 09/24/2024 09/24/2024 09/24/2024 3:13 PM PLANTING MACHINE OPERATOR COVID: Suspected 06/28/2025 06/28/2025 06/29/2025 12:02 AM PLANTING MACHINE OPERATOR Ring Surveillance: C. auris Comment:[id number] 07/01/2025 07/01/2025 07/06/2025 9:[address] documented as of this encounter Care Teams Candy Cutter Hand Relationship Specialty Start Date End Date Maddy Romano MD [address] [place] [address] PCP - General 09/28/16 Astrid Haq NP [address] [place] [address] Nurse Practitioner Radiation Oncology 11/05/18 11/07/22 Manas Ibarra MD [address] [place] [address] Referring Physician Thoracic Surgery 11/05/18 Zion Barton MD [address] [place] [address] Radiation Oncologist Radiation Oncology 05/05/19 Molina Charles MD 1 [facility] [address] [place] [address] Referring Physician Transplant Hepatology 12/15/20 Inés Lemus RN 4590 [facility] [address] [place] [address] Learning Disabilities Resource Teacher 10/31/21 5 Karuna Maria, OT Occupational Therapist Occupational Therapy 09/20/22 Renu Treviño NP 49[address] [facility] [address] [place] [address] Nurse Practitioner Radiation Oncology 11/08/22 Eladio Mcrae MD [address] [place] [address] Referring Physician Obstetrics and Gynecology 11/15/22 Marcy Schroeder RN [address] [place] [address] Learning Disabilities Resource Teacher 04/27/24 Briana Poe RN [address] [address] SHOP Outpatient Top Coater 04/30/24 05/28/24 Marina Le RN [address] [address] SHOP Outpatient Top Coater 10/05/24 10/26/24 Chelsea Barker, co founder and chairmanLearning Disabilities Resource Teacher 11/13/24 Marina Le, RN [address] [id number] SHOP Outpatient Top Coater 07/12/25 07/29/25 documented as of this encounter
--- OUTSIDE RECORDS SUMMARY | 2025-08-02 15:46 | XMS_ITS | Encounter Summary ---
Author Organization [facility] Healthcare Address [address] [place] [address] Care Team Providers Care Second Operator Name Role Phone Maddy Romano MD Primary Care Provider + [phone] Manas Ibarra MD Unavailable Zion Barton MD Unavailable Molina Charles MD Unavailable [phone] Karuna Marai OT Unavailable Unavaila Renu Paul NP Unavailable [phone] Eladio Mcrae MD Unavailable [phone] Marcy Schroeder RN Unavailable [phone] Chelsea Barker RN Unavailable Unavail able Marina Le RN Unavailable [phone] Encounter Details Date Type Department Care Team (Latest Contact Info) Description 06/09/2025 Results Follow-Up [facility] Transplant Liver 4590 [facility] [address] [place] [address] Chelsea Barker, TYRA Comprehensive metabolic panel, Protime-INR, eGFR Social History Tobacco Use Types Packs/Day Years Used Date Smoking Tobacco: Former Cigarettes 0.5 51 1 - 2020 Smokeless Tobacco: Never [facility] Utilities Answer Date Recorded In the past 12 months has th e [employer], gas, oil, or water Jascha threatened to shut off services in your [...] often do you attend chur ch or buddhism services? Never 10/05/2024 Do you belong to any clubs o r organizations such as jehovah's witness groups, unions, fraternal or athletic groups, or [...] on file Legal Sex Female 8:22 AM HEDDLER Gender Identity Female 11/15/2021 2:30 AM CDT [...] COVID: Suspected 06/28/2025 06/28/2025 06/29/2025 12:02 AM HEDDLER Ring Surveillance: Raz howell Comment:4400 07/01/2025 07/01/2025 07/06/2025 9:[address] documented as of this encounter Care Teams Second Operator Relationship Specialty Start Date End Date Maddy Romano MD [address] [place] [address] PCP - General 09/28/16 Manas Ibarra MD [address] [place] [address] Referring Physician Thoracic Surgery 11/05/18 Zion Barton MD [address] [place] [address] Radiation Oncologist Radiation Oncology 05/05/19 Molina Charles MD 1 [facility] [address] [place] [address] Referring Physician Transplant Hepatology 12/15/20 Karuna Maria OT Occupational Therapist Occupational Therapy 09/20/22 Renu Treviño NP 49[address] [facility] [address] [place] [address] Nurse Practitioner Radiation Oncology 11/08/22 Eladio Mcrae MD [address] [place] [address] Referring Physician Obstetrics and Gynecology 11/15/22 Marcy Schroeder, RN [address] [place] [address] Doughnut Batter Mixer 04/27/24 Chelsea Barker, rigger thirdDoughnut Batter Mixer 11/13/24 Marina Le, RN [address] [facility] [address] [place] [address] SHOP Outpatient Game Moderator 07/12/25 07/29/25 documented as of this encounter
--- OUTSIDE RECORDS SUMMARY | 2025-08-02 15:46 | XMS_ITS | Clinical Summary ---
Author Organization [facility] Address [address] [place] [address] Care Team Providers Care Storeperson Name Role Phone Maddy Romano MD Primary Care Provider [phone] Active Problems Problem Noted Date Diagnosed Date [...] patient's age to complete this topic Insurance [facility] Care Teams Storeperson Relationship Specialty Start Date End Date Maddy Romano MD [address] [place] [address] PCP - General INTERNAL MEDICINE 01/16/23
--- OUTSIDE RECORDS SUMMARY | 2025-08-02 15:46 | XMS_ITS | Encounter Summary ---
Author Organization [facility] Healthcare Address [address] [place] [address] Care Team Providers Care Sampler Ovens Name Role Phone Maddy Romano MD Primary Care Provider + [phone] Manas Ibarra MD Unavailable Zion Barton MD Unavailable Molina Charles MD Unavailable [phone] Karuna Maria OT Unavailable Unavaila Renu Paul NP Unavailable [phone] Eladio Mcrae MD Unavailable [phone] Marcy Schroeder RN Unavailable [phone] Chelsea Barker RN Unavailable Unavail able Marina Le RN Unavailable [phone] Encounter Details Date Type Department Care Team (Latest Contact Info) Description 06/16/2025 Results Follow-Up [facility] Transplant Liver 4590 [facility] [address] [place] [address] Chelsea Barker, TYRA Comprehensive metabolic panel, CBC without differential, Protime-INR, Additional followed-up results: 2 Social History Tobacco Use Types Packs/Day Years Used Date Smoking Tobacco: Former Cigarettes 0.5 51 1 2020 Smokeless Tobacco: Never [facility] Utilities Answer Date Recorded In the past [...] often do you attend chur ch or mormonism services? 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 of this encounter Plan of Treatment Scheduled Procedures Name Priority Associated Diagnoses Date/Ti dc TRANSPLANT LIVER Metabolic dysfunction-associated steatohepatitis (MASH) TRANSPLANT KIDNEY Metabolic dysfunction-associated steatohepatitis (MASH) COLONOSCOPY Routine adult health maintenance LYONS (nonalcoholic steatohepatitis) documented as of this encounter Visit Diagnoses Not on filedocumented in this encounter Additional Health Concerns Infection Onset Date Last Indicated Resolved Time COVID: Suspected 06/28/2025 06/28/2025 06/29/2025 12:02 AM THERAPY TECH Ring Surveillance: C. auris Comment:[id number] 07/01/2025 07/01/2025 07/06/2025 9:[address] documented as of this encounter Care Teams Sampler Ovens Relationship Specialty Start Date End Date Maddy Romano MD [address] [place] [address] PCP - General 09/28/16 Manas Ibarra MD [address] [place] [address] Referring Physician Thoracic Surgery 11/05/18 Zion Barton MD [address] [place] [address] Radiation Oncologist Radiation Oncology 05/05/19 Molina Charles MD 1 [facility] [address] [place] [address] Referring Physician Transplant Hepatology 12/15/20 Karuna Maria OT Occupational Therapist Occupational Therapy 09/20/22 Renu Treviño NP 49[address] [facility] [address] [place] [address] Nurse Practitioner Radiation Oncology 11/08/22 Eladio Mcrae MD [address] [place] [address] Referring Physician Obstetrics and Gynecology 11/15/22 Marcy Schroeder, RN [address] [place] [address] Consumer Services Consultant 04/27/24 Chelsea Barker, vp integrityConsumer Services Consultant 11/13/24 Marina Le, RN [address] [facility] [address] [place] [address] SHOP Outpatient Automotive Maintenance Technician 07/12/25 07/29/25 documented as of this encounter
--- OUTSIDE RECORDS SUMMARY | 2025-08-02 15:46 | XMS_ITS | Clinical Summary ---
Author Organization [facility] Address [address] [place] [address] Care Team Providers Care Firestop/Containment Worker Name Role Phone Unavailable Primary Care Provider Unavailabl e Source Comments [facility] [employer],non-owned Affiliates and Associated Physician Practices is amultiple site organization consisting of ambulatory clinics and hospital sitesin [place], [place], [place] and [place]. This disclosure is being madepursuant to the Care Everywhere program and may not contain all information available regarding this patient. Last updated 18.[facility] [employer] Active Problems Problem Noted Date Diagnosed Date Decompensated hepatic cirrhosis 09/24/2024 Hepatic encephalopathy 04/01/2024 Cerebellar infarct 04/01/2024 Social History Tobacco Use Types Packs/Day Years Used Date Smoking Tobacco: Never Assessed Comments Unknown Sex and Gender Information Value Date Recorded Sex Assigned at Not on file Legal Sex Female 8:40 AM SEXUAL ASSAULT COUNSELLOR Gender Identity Not on file Sexual Orientation [...] patient's age to complete this topic Insurance [facility]
--- OUTSIDE RECORDS SUMMARY | 2025-08-02 15:46 | XMS_ITS | Patient Health Record ---
Author Organization [facility] Address [address] [place], [place] [address] Care Team Providers Care Transcription Specialist Name Role Phone IVAN HARDIN Unavailable [phone] Leisa Romano Unavailable Unavailable BALDEV TAPIA Unavailable [phone] Allergies Allergen (clinical drug ingredient) Drug/Non Drug [...] 03/18/2025 Encounters Encounter Location Date Provider Diagnosis [address] [id number] 03/18/2025 BALDEV TAPIA Tinea unguium B35.1 ; Pain in right toe(s) M79.674 ; Pain in left toe(s) M79.675 ; Atherosclerosis of hamilton arteries of extremities with intermittent claudication, bilateral legs I70.213 and Type 2 diabetes mellitus with other circulatory complications E11.[address] [id number] 12/10/2024 IVAN HARDIN Tinea unguium B35.1 ; Pain in right toe(s) M79.674 ; Pain in left toe(s) M79.675 ; Atherosclerosis of hamilton arteries of extremities with intermittent claudication, bilateral [...] toe(s) (ICD-10 - M79.675) 12/10/2024 Atherosclerosis of hamilton arteries of extremities with intermittent claudication, bilateral legs (ICD-10 - I70.213) 03/18/2025 Atherosclerosis of hamilton arteries of extremities with intermittent claudication, bilateral [...] not infected. As long as it gets plug stitcher and fades we will monitor. If it gets dark, drains, changes color or shape than I would recommend biopsy Plan Of Treatment No Information Insurance Providers Payer Name Payer Address Payer Phone Subscriber Number Group Number Insured Name Patient Relationship to Insured Coverage Start Date Coverage End Date [facility] [address] [address] [place], [place] [id number] [place] Self - patient is the insured Medical (General) History Medical History History ICD Code Pneumonia anemia asthma - mild intermittent Leg/Feet cramps Liver disease Sleep apnea Diabetic
--- OUTSIDE RECORDS SUMMARY | 2025-08-02 15:46 | XMS_ITS | Encounter Summary ---
Author Organization [facility] Healthcare Address [address] [place] [address] Care Team Providers Care Cadmium Plater Name Role Phone Maddy Romano MD Primary Care Provider + [phone] Manas Ibarra MD Unavailable Zion Barton MD Unavailable Molina Charles MD Unavailable [phone] Inés Lemus RN Unavailable + [phone] Karuna Maria OT Unavailable Unavaila Renu Paul NP Unavailable [phone] Eladio Mcrae MD Unavailable [phone] Marcy Schroeder RN Unavailable [phone] Briana Poe RN Unavailable [phone] Marina Le RN Unavailable Chelsea Barker RN Unavailable Unavail able Marina Le RN Unavailable [phone] Encounter Details Date Type Department Care Team (Late st Contact Info) Description 05/11/2024 Telephone [facility] [address] [place] [address] Wheeler, Ragini L., RN Social History Tobacco Use Types Packs/Day Years Used Date Smoking Tobacco: Former Cigarettes 0.5 51 1 970 - 2020 Smokeless Tobacco: Never [facility] Utilities Answer Date Recorded In the past [...] attend chur ch or taoist services? Never 04/30/2024 Do you belong to [...] in the past [address] [facility], were you homeless or living [...] on file Legal Sex Female 8:22 AM BRYOLOGIST Gender Identity Female 11/15/2021 2:30 AM CDT [...] COVID: Suspected 09/24/2024 09/24/2024 09/24/2024 3:13 PM BRYOLOGIST COVID: Suspected 06/28/2025 06/28/2025 06/29/2025 12:02 AM BRYOLOGIST Ring Surveillance: LupilloTri howell Comment:4400 07/01/2025 07/01/2025 07/06/2025 9:[address] documented as of this encounter Care Teams Cadmium Plater Relationship Specialty Start Date End Date Maddy Romano MD [address] [place] [address] PCP - General 09/28/16 Manas Ibarra MD [address] [place] [address] Referring Physician Thoracic Surgery 11/05/18 Zion Barton MD [address] [place] [address] Radiation Oncologist Radiation Oncology 05/05/19 Molina Charles MD 1 [facility] [address] [place] [address] Referring Physician Transplant Hepatology 12/15/20 Inés Lemus, TYRA [address] [facility] [address] [place] [address] Postal Service Sectional Center Manager 10/31/21 5 Karuna Maira, OT Occupational Therapist Occupational Therapy 09/20/22 Renu Treviño NP 49[address] [facility] [address] [place] [address] Nurse Practitioner Radiation Oncology 11/08/22 Eladio Mcrae MD [address] [place] [address] Referring Physician Obstetrics and Gynecology 11/15/22 Marcy Schroeder RN [address] [place] [address] Postal Service Sectional Center Manager 04/27/24 Briana Poe, TYRA [address] [address] SHOP Outpatient Tents Assembler 04/30/24 05/28/24 Marina Le, RN [address] [address] SHOP Outpatient Tents Assembler 10/05/24 10/26/24 Chelsea Barker, telephone service adviserPostal Service Sectional Center Manager 11/13/24 Marina Le, RN [address] [id number] SHOP Outpatient Tents Assembler 07/12/25 07/29/25 documented as of this encounter
--- OUTSIDE RECORDS SUMMARY | 2025-08-02 15:47 | XMS_ITS | Encounter Summary ---
Author Organization [facility] Address [address] [place] [address] Phone Care Team Providers Care Service Establishment Attendant Name Role Phone Maddy Romano MD Primary Care Provider [phone] Astrid Haq ENTRY LEVEL ACCOUNT REPRESENTATIVE Unavailable Manas Ibarra MD Unavailable Zion Barton MD Unavailable Molina Charles MD Unavailable +[phone] Inés Lemus RN Unavailable [phone] Karuna Maria OT Unavailable Unavaila Renu Paul NP Unavailable [phone] Eladio Mcrae MD Unavailable [phone] Marcy Schroeder RN Unavailable [phone] Briana Poe RN Unavailable [phone] Marina Le RN Unavailable Chelsea Barker RN Unavailable Unavail able Marina Le RN Unavailable [phone] Encounter Details Date Type Department Care Team (Late st Contact Info) Description 08/11/2021 Orders Only [facility] Scanning, Provider Social History Tobacco Use Types Packs/Day Years Used Date Smoking Tobacco: Former Cigarettes Q uit: 2010 Smokeless Tobacco: Never Comments No Sex and Gender Information Value Date Recorded Sex Assigned at Not on file Legal Sex Female 8:22 AM STUDENT LIFE COORDINATOR Gender Identity Female 11/15/2021 2:30 AM CDT [...] COVID: Suspected 09/24/2024 09/24/2024 09/24/2024 3:13 PM STUDENT LIFE COORDINATOR COVID: Suspected 06/28/2025 06/28/2025 06/29/2025 12:02 AM STUDENT LIFE COORDINATOR Ring Surveillance: C. auris Comment:[id number] 07/01/2025 07/01/2025 07/06/2025 9:[address] documented as of this encounter Care Teams Service Establishment Attendant Relationship Specialty Start Date End Date Maddy Romano MD [address] [place] [address] PCP - General 09/28/16 Astrid Haq NP [address] [place] [address] Nurse Practitioner Radiation Oncology 11/05/18 11/07/22 Manas Ibarra MD [address] [place] [address] Referring Physician Thoracic Surgery 11/05/18 Zion Barton MD [address] [place] [address] Radiation Oncologist Radiation Oncology 05/05/19 Molina Charles MD 1 [facility] [address] [place] [address] Referring Physician Transplant Hepatology 12/15/20 Inés Lemus RN 4590 [facility] [address] [place] [address] Dump Truck Driver 10/31/21 5 Karuna Maria, OT Occupational Therapist Occupational Therapy 09/20/22 Renu Treviño NP [address] [facility] [address] [place] [address] Nurse Practitioner Radiation Oncology 11/08/22 Eladio Mcrae MD [address] [place] [address] Referring Physician Obstetrics and Gynecology 11/15/22 Marcy Schroeder RN [address] [place] [address] Dump Truck Driver 04/27/24 Briana Poe RN [address] [address] SHOP Outpatient Music Education Director 04/30/24 05/28/24 Marina Le RN [address] [address] SHOP Outpatient Music Education Director 10/05/24 10/26/24 Chelsea Barker, receptionist clerkDump Truck Driver 11/13/24 Marina Le, RN [address] [id number] SHOP Outpatient Music Education Director 07/12/25 07/29/25 documented as of this encounter
--- OUTSIDE RECORDS SUMMARY | 2025-08-02 15:47 | XMS_ITS | Encounter Summary ---
Author Organization [facility] [employer] [facility] Address [address] [place] [address] Phone Care Team Providers Care Production Honing Machine Operator Name Role Phone Maddy Romano MD Primary Care Provider [phone] Astrid Haq METAL MIXER Unavailable Manas Ibarra MD Unavailable Zion Barton MD Unavailable [phone] Molina Charles MD Unavailable +[phone] Inés Lemus RN Unavailable [phone] Karuna Maria OT Unavailable Unavaila Renu Paul NP Unavailable [phone] Eladio Mcrae MD Unavailable [phone] Marcy Schroeder RN Unavailable [phone] Briana Poe RN Unavailable [phone] Marina Le RN Unavailable Chelsea Barker RN Unavailable Unavail able Marina Le RN Unavailable [phone] Encounter Details Date Type Department Care Team (Late st Contact Info) Description 04/13/2020 Orders Only [facility] Scanning, Provider Social History Tobacco Use Types Packs/Day Years Used Date Smoking Tobacco: Former Cigarettes Q uit: 2010 Smokeless Tobacco: Never Comments No Sex and Gender Information Value Date Recorded Sex Assigned at Not on file Legal Sex Female 8:22 AM FUEL HOUSE ATTENDANT Gender Identity Female 11/15/2021 2:30 AM [...] COVID: Suspected 09/24/2024 09/24/2024 09/24/2024 3:13 PM FUEL HOUSE ATTENDANT COVID: Suspected 06/28/2025 06/28/2025 06/29/2025 12:02 AM FUEL HOUSE ATTENDANT Ring Surveillance: C. auris Comment:[id number] 07/01/2025 07/01/2025 07/06/2025 9:[address] documented as of this encounter Care Teams Production Honing Machine Operator Relationship Specialty Start Date End Date Maddy Romano MD [address] [place] [address] PCP - General 09/28/16 Astrid Haq NP [address], [place] [address] Nurse Practitioner Radiation Oncology 11/05/18 11/07/22 Manas Ibarra MD [address] [place], [place] [address] Referring Physician Thoracic Surgery 11/05/18 Zion Barton MD [address] [place], [place] [address] Radiation Oncologist Radiation Oncology 05/05/19 Molina Charles MD 1 [facility] [address] [place], [place] [address] Referring Physician Transplant Hepatology 12/15/20 Inés Lemus, TYRA [address] [place] [address] Boom Stick Worker 10/31/21 5 Karuna Maria, OT Occupational Therapist Occupational Therapy 09/20/22 Renu Treviño NP [address] [facility] [address] [place] [address] Nurse Practitioner Radiation Oncology 11/08/22 Eladio Mcrae MD [address] [place] [address] Referring Physician Obstetrics and Gynecology 11/15/22 Marcy Schroeder, RN [address] [place] [address] Boom Stick Worker 04/27/24 Briana Poe RN [address] [address] [facility] Out[facility] Informatica Architect 04/30/24 05/28/24 Marina Le, RN [address] [address] [facility] Out[facility] Informatica Architect 10/05/24 10/26/24 Chelsea Barker, plasterer roughBoom Stick Worker 11/13/24 Marina Le, RN [address] [address] [facility] Informatica Architect 07/12/25 07/29/25 documented as of this encounter
--- OUTSIDE RECORDS SUMMARY | 2025-08-02 15:47 | XMS_ITS | Encounter Summary ---
Author Organization [facility] [employer] [facility] Address [address] [place] [address] Phone Care Team Providers Care Senior Master Scheduler Name Role Phone Maddy Romano MD Primary Care Provider [phone] Astrid Haq MECHANICAL MAINTENANCE Unavailable [phone] Manas Ibarra MD Unavailable Zion Barton MD Unavailable [phone] Molina Charles MD Unavailable +[phone] Inés Lemus RN Unavailable [phone] Karuna Maria OT Unavailable Unavaila Renu Paul NP Unavailable [phone] Eladio Mcrae MD Unavailable [phone] Marcy Schroeder RN Unavailable [phone] Briana Poe RN Unavailable [phone] Marina Le RN Unavailable Chelsea Barker RN Unavailable Unavail able Marina Le RN Unavailable [phone] Encounter Details Date Type Department Care Team (Late st Contact Info) Description 12/25/2019 Orders Only [facility] Scanning, Provider Social History Tobacco Use Types Packs/Day Years Used Date Smoking Tobacco: Former Cigarettes Q uit: 2010 Smokeless Tobacco: Never Comments No Sex and Gender Information Value Date Recorded Sex Assigned at Not on file Legal Sex Female 8:22 AM WEB DEVELOPMENT MANAGER Gender Identity Female 11/15/2021 2:30 AM [...] Suspected 09/24/2024 09/24/2024 09/24/2024 3:13 PM WEB DEVELOPMENT MANAGER COVID: Suspected 06/28/2025 06/28/2025 06/29/2025 12:02 AM WEB DEVELOPMENT MANAGER Ring Surveillance: C. auris Comment:[id number] 07/01/2025 07/01/2025 07/06/2025 9:[address] documented as of this encounter Care Teams Senior Master Scheduler Relationship Specialty Start Date End Date Maddy Romano MD [address] [place] [address] PCP - General 09/28/16 Astrid Haq, NAGI [address] [place] [address] Nurse Practitioner Radiation Oncology 11/05/18 11/07/22 Manas Ibarra MD [address] [place] [address] Referring Physician Thoracic Surgery 11/05/18 Zion Barton MD [address] [place] [address] Radiation Oncologist Radiation Oncology 05/05/19 Molina Charles MD 1 [facility] [address] [place] [address] Referring Physician Transplant Hepatology 12/15/20 Inés Lemus, TYRA [address] [facility] [address] [place] [address] Cardiology Consultants 10/31/21 5 Karuna Maria, OT Occupational Therapist Occupational Therapy 09/20/22 Renu Treviño, MECHANICAL MAINTENANCE [address] [facility] [address] [place] [address] Nurse Practitioner Radiation Oncology 11/08/22 Eladio Mcrae MD [address] [place] [address] Referring Physician Obstetrics and Gynecology 11/15/22 Marcy Schroeder, RN [address] [place] [address] [facility] 04/27/24 Briana Poe RN [address] [address] [facility] Outpatient Searchlight Operator 04/30/24 05/28/24 Marina Le RN [address] [address] [facility] Outpatient Searchlight Operator 10/05/24 10/26/24 Chelsea Barker, control systems engineerCardiology Consultants 11/13/24 Marina Le, RN [address] [address] [facility] Outpatient Searchlight Operator 07/12/25 07/29/25 documented as of this encounter
--- OUTSIDE RECORDS SUMMARY | 2025-08-02 15:47 | XMS_ITS | Clinical Summary ---
Author Organization [facility] Address [address] [place] [address] Phone Care Team Providers Care Assistant General Manager Name Role Phone Unavailable Primary Care Provider Unavailabl e Allergies No known active allergies Medications acetaminophen (TYLENOL) 325 mg tablet Take 325 mg by mouth every 8 hours. Active glucagon (BAQSIMI) 3 mg/spray [place], Non-Aerosol 1 [place]. GIVE 1 spray in one NOSTRIL ONE [...] STOOL Negative Negative 04/03/2024 3:27 AM CDT [facility] Stool STOOL SPECIMEN / Unknown Collection / Unknown 04/03/2024 1:23 AM CDT 04/03/2024 1:24 AM CDT Marcos Newton MD BODY FLUIDS AND STOOLS Final R esult [facility] CLIA# [id number] [place] [address] * LIPID PANEL (04/03/2024 12:30 AM CDT) CHOLESTEROL 114 <200 mg/dL 04/03/2024 1:34 AM CDT [facility] [email or web address] [facility] TRIGLYCERIDE 62 <150 mg/dL 04/03/2024 1:34 AM CDT [facility] [email or web address] [facility] HDL 50 40 - 59 mg/dL 04/03/2024 1:34 AM CDT [facility] LDL CALCULATED 52 <100 mg/dL 04/03/2024 1:34 AM CDT [facility] NON-HDL CHOLESTEROL 64 <130 mg/dL 04/03/2024 1:34 AM CDT [facility] Blood Venipuncture / Unknown 04/03/2024 12:30 AM CDT 04/03/2024 1:04 AM CDT [facility] [email or web address] [facility] - 04/03/2024 1:34 AM CDT TOTAL [...] ORDERABLES Final Res ult Performing Organization Address City/[facility]/ZIP Co de Phone Number [facility] CLIA# [id number] [place] [address] * (ABNORMAL) HEMOGLOBIN A1C (04/02/2024 6:29 PM CDT) HEMOGLOBIN A1C 6.5(H) <=5.6 % 04/02/2024 7:01 PM CDT [facility] [email or web address] [facility] EST. AVG GLUCOSE, A1C 140 mg/dL 04/02/2024 7:01 PM CDT [facility] [email or web address] [facility] Blood Venipuncture / Unknown 04/02/2024 6:29 PM CDT 04/02/2024 6:34 PM CDT [facility] [email or web address] [facility] - 04/02/2024 7:01 PM CDT HGB A1C INTERPRETATION NORMAL: <5.7% PRE-DIABETES: 5.7 - 6.4% DIABETES: 6.5% OR GREATER us Marcos Newton MD CHEMISTRY ORDERABLES Final Res ult [facility]# [id number] [place] [address] from Last 3 Months or Most Recently Relevant to Health Maintenance Insurance [facility] [id number] RX [employer] RX Member Subscriber Plan / Payer (Ef fective 2024-Present) Name:Aleah Levine Relation to Subscriber:Self Name:Aleah Levine Payer ID:Not on file Group ID:[id number] Type:RX Medicare Part D Address: [address] Advance Directives For more information, please contact: [phone] * Full Code (Latest Code Status on File) Date Activated Date Inactivated Comments 04/02/2024 6:16 PM 04/06/2024 2:11 PM
--- OUTSIDE RECORDS SUMMARY | 2025-08-02 15:47 | XMS_ITS | Encounter Summary ---
Author Organization [facility] [employer] [facility] Address [address] [place] [address] Phone Care Team Providers Care Software Security Architect Name Role Phone Maddy Romano MD Primary Care Provider [phone] Astrid Haq NP Unavailable Manas Ibarra MD Unavailable Zion Barton MD Unavailable Molina Charles MD Unavailable +[phone] Inés Lemus RN Unavailable [phone] Karuna Maria OT Unavailable Unavaila Renu Paul NP Unavailable [phone] Eladio Mcrae MD Unavailable [phone] Marcy Schroeder RN Unavailable [phone] Briana Poe RN Unavailable [phone] Marina Le RN Unavailable [phone] Chelsea Barker RN Unavailable Unavail able Marina Le RN Unavailable [phone] Encounter Details Date Type Department Care Team (Late st Contact Info) Description 06/16/2021 Orders Only [facility] Scanning, Provider Social History Tobacco Use Types Packs/Day Years Used Date Smoking Tobacco: Former Cigarettes Q uit: 2010 Smokeless Tobacco: Never Comments No Sex and Gender Information Value Date Recorded Sex Assigned at Not on file Legal Sex Female 8:22 AM MANAGER HIV Gender Identity Female 11/15/2021 2:30 AM CDT [...] Suspected 09/24/2024 09/24/2024 09/24/2024 3:13 PM MANAGER HIV COVID: Suspected 06/28/2025 06/28/2025 06/29/2025 12:02 AM MANAGER HIV Ring Surveillance: C. auris Comment:[id number] 07/01/2025 07/01/2025 07/06/2025 9:[address] documented as of this encounter Care Teams Software Security Architect Relationship Specialty Start Date End Date Maddy Romano MD [address] [place] [address] PCP - General 09/28/16 Astrid Haq NP [address] [place] [address] Nurse Practitioner Radiation Oncology 11/05/18 11/07/22 Manas Ibarra MD [address] [place] [address] Referring Physician Thoracic Surgery 11/05/18 Zion Barton MD [address] [place] [address] Radiation Oncologist Radiation Oncology 05/05/19 Molina Charles MD [address] [facility] [address] [place] [address] Referring Physician Transplant Hepatology 12/15/20 Inés Lemus RN [address] [facility] [address] [place] [address] Aircraft Structural Repairer 10/31/21 5 Karuna Maria, OT Occupational Therapist Occupational Therapy 09/20/22 Renu Treviño NP [address] [facility] [address] [place] [address] Nurse Practitioner Radiation Oncology 11/08/22 Eladio Mcrae MD [address] [place] [address] Referring Physician Obstetrics and Gynecology 11/15/22 Marcy Schroeder RN [address] [place] [address] Aircraft Structural Repairer 04/27/24 Briana Poe RN [address] [address] [facility] Out[facility] President And Chief Commercial Officer 04/30/24 05/28/24 Marina Le RN [address] [address] [facility] President And Chief Commercial Officer 10/05/24 10/26/24 Chelsea Barker, veneer sorterAircraft Structural Repairer 11/13/24 Marina Le, RN [address] [id number] [facility] President And Chief Commercial Officer 07/12/25 07/29/25 documented as of this encounter
--- OUTSIDE RECORDS SUMMARY | 2025-08-02 15:47 | XMS_ITS | Encounter Summary ---
Author Organization [facility] Address [address] [place] [address] Care Team Providers Care Back Office Medical Assistant Name Role Phone Maddy Romano MD Primary Care Provider [phone] Astrid Haq NP Unavailable [phone] Manas Ibarra MD Unavailable Zion Barton MD Unavailable Molina Charles MD Unavailable +[phone] Inés Lemus RN Unavailable +[phone] Karuna aMria OT Unavailable Unavaila Renu Paul NP Unavailable [phone] Eladio Mcrae MD Unavailable [phone] Marcy Schroeder RN Unavailable [phone] Briana Poe RN Unavailable [phone] Marina Le RN Unavailable [phone] Chelsea Barker RN Unavailable Unavail able Marina Le RN Unavailable [phone] Reason for Visit * Reason Onset Date Comments Ready to scheduled 04/26/2022 Encounter Details Date Type Department Care Team (Late st Contact Info) Description 04/26/2022 Telephone [facility] Specialty Services [address] [place] [address] Miscellaneous, Not In File Ready to scheduled [...] on file Legal Sex Female 8:22 AM SCOUTS Gender Identity Female 11/15/2021 2:30 AM CDT [...] COVID: Suspected 09/24/2024 09/24/2024 09/24/2024 3:13 PM SCOUTS COVID: Suspected 06/28/2025 06/28/2025 06/29/2025 12:02 AM SCOUTS Ring Surveillance: C. auris Comment:[id number] 07/01/2025 07/01/2025 07/06/2025 9:[address] documented as of this encounter Care Teams Back Office Medical Assistant Relationship Specialty Start Date End Date Maddy Romano MD [address] [place] [address] PCP - General 09/28/16 Astrid Haq NP [address] [place], [place] [address] Nurse Practitioner Radiation Oncology 11/05/18 11/07/22 Manas Ibarra MD [address] [place], [place] [address] Referring Physician Thoracic Surgery 11/05/18 Zion Barton MD [address] [place], [place] [address] Radiation Oncologist Radiation Oncology 05/05/19 Molina Charles MD [address] [place] [address] [address] [place] [address] Referring Physician Transplant Hepatology 12/15/20 Inés Lemus, RN [address] [facility] [address] [place] [address] Environmental Services Floor Tech 10/31/21 5 Karuna Maria, OT Occupational Therapist Occupational Therapy 09/20/22 Renu Treviño NP [address] [facility] [address] [place] [address] Nurse Practitioner Radiation Oncology 11/08/22 Eladio Mcrae MD [address] [place] [address] Referring Physician Obstetrics and Gynecology 11/15/22 Marcy Schroeder, RN [address] [place] [address] Environmental Services Floor Tech 04/27/24 Briana Poe RN [address] [address] [facility] Outpatient Cancer Registry Coordinator 04/30/24 05/28/24 Marina Le, RN [address] [address] [facility] Outpatient Cancer Registry Coordinator 10/05/24 10/26/24 Chelsea Barker, district agentEnvironmental Services Floor Tech 11/13/24 Marina Le, RN [address] [address] [facility] Outpatient Cancer Registry Coordinator 07/12/25 07/29/25 documented as of this encounter
--- OUTSIDE RECORDS SUMMARY | 2025-08-02 15:47 | XMS_ITS | Clinical Summary ---
Author Organization [facility] al Address [address] [place] [address] Care Team Providers Care Chief Strategy Officer Name Role Phone Maddy Romano MD Primary Care Provider + [phone] Manas Ibarra MD Unavailable Zion Barton MD Unavailable Molina Charles MD Unavailable [phone] Karuna Maria OT Unavailable Unavaila Renu Paul NP Unavailable [phone] Eladio Mcrae MD Unavailable [phone] Marcy Schroeder RN Unavailable [phone] Chelsea Barker RN Unavailable Unavail able [...] without complication, unspecified whether penitentiary insulin use USE TO INJECT INSULIN SIX [...] unspecified whether penitentiary insulin use (HCC) Inject 44 Units under the skin nightly 45 mL 02/20/20 25 Active insulin lispro (HumaLOG, ADMELOG) 100 unit/mL pen for injectionIndicatio ns:Type 2 diabetes mellitus with stage 3a chronic kidney disease, unspecified whether penitentiary insulin use (HCC) Inject 8 units with meals tid, plus sliding scale up to 40u daily 15 mL 02/20/20 026 Active blood-glucose sensor (Dexcom G6 Sensor) deviceIndications: Type 2 diabetes mellitus with stage 3a chronic kidney disease, unspecified whether long term care pharmacist insulin use (HCC) Will use 1 sensor [...] the skin once a week 2 mL 05/28/20 25 026 Active blood-glucose transmitter (Dexcom G6 Transmitter) deviceIndications: Type 2 diabetes mellitus without complication, with long-term current use of insulin (HCC) Will use 1 transmitter every 90 days 1 each 3 05/28/20 Active amitriptyline (ELAVIL) 25 mg tablet Take 1 tablet (25 mg total) by mouth nightly 30 tablet 1 06/17/20 25 026 Active warfarin (COUMADIN) 1 mg tabletIndications: atrial fibrillation Take 4 tablets (4 mg total) by mouth daily 120 tablet 07/09/20 Active lactulose solution 10 gram/15mL Take 30 mL (20 g total) by mouth 3 times a day 3785 mL 07/09/20 25 Active bumetanide (BUMEX) 2 mg tablet Take [...] ued(Stop Taking at Discharge ) Active Problems Patient Care Coordination No te Formatting of this note migh t be different from the original. [facility] [place], [place] in [place], [place] lab fax: [phone] Problem Noted Date Diagnosed Date Thrombocytopenia 07/05/2025 Assessment & Plan (07/09/2025 6:54 AM ENGINE BOSS): Secondary to end stage liver disease, CKD, and acute illness. - CTM, transfuse PRN Assessment & Plan (07/08/2025 7:08 AM ENGINE BOSS): Secondary to end stage liver disease, CKD, and acute illness. - CTM, transfuse PRN Assessment & Plan (07/07/2025 9:19 AM ENGINE BOSS): Secondary to end stage liver disease, CKD, and acute illness. - CTM, transfuse PRN Assessment & Plan (07/06/2025 10:53 AM ENGINE BOSS): Secondary to end stage liver disease, CKD, and acute illness. - CTM, transfuse PRN Assessment & Plan (07/05/2025 11:27 PM ENGINE BOSS): Secondary to end stage liver disease, CKD, and acute illness. 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 Assessment & Plan (07/08/2025 1:36 PM ENGINE BOSS): Baseline Cr around 1.3 - 1.7, presented [...] a.m. Assessment & Plan (07/07/2025 9:19 AM ENGINE BOSS): Baseline Cr around 1.3 - 1.7, presented [...] following Assessment & Plan (07/06/2025 10:53 AM ENGINE BOSS): Baseline Cr around 1.3 - 1.7, presented [...] following Assessment & Plan (07/05/2025 11:27 PM ENGINE BOSS): Baseline Cr around 1.3 - 1.7, presented [...] following Assessment & Plan (06/30/2025 9:29 AM ENGINE BOSS): Cr on presentation at 2.21 -> 2.58. [...] HRS Assessment & Plan (06/29/2025 11:32 PM ENGINE BOSS): Baseline Cr 1.6, Cr on presentation 2.58. DDx is pre-renal vs. HRS. Albumin challenge will refine DDx. - Receiving albumin challenge 25g 25% albumin q6h - Trend BMP q24 Assessment & Plan (06/29/2025 8:08 PM ENGINE BOSS): Cr on presentation at 2.21 -> 2.58. [...] 06/29/2025 Assessment & Plan (06/30/2025 3:49 PM ENGINE BOSS): EKGs since presentation have shown complete RBBB, aflutter and afib with RVR. Received metoprolol 5mg IV x3 in the ED. Currently aflutter. - Proceed with CTA to rule out L atrial appendage thrombus prior to surgery --> 06/30 found left atrial enlargement without thrombus in the left atrial appendage. Assessment & Plan (06/30/2025 1:10 PM ENGINE BOSS): EKGs since presentation have shown complete RBBB, sinus tachycardia, aflutter and afib with RVR. Received metoprolol 5mg IV x3 in the ED. Currently aflutter. - metoprolol 5mg IV - Proceed with CTA to rule out L atrial appendage thrombus prior to surgery Assessment & Plan (06/29/2025 8:08 PM ENGINE BOSS): EKGs since presentation have shown complete RBBB, sinus tachycardia, aflutter and afib with RVR. Received metoprolol 5mg IV x3 in the ED. Currently in sinus tachycardia. BP 92/55. Will hold off on further metoprolol for now. Atrial fibrillation and flutter 06/29/2025 Assessment & Plan (07/09/2025 1:29 PM ENGINE BOSS): Known history of atrial flutter not on [...] (will need AC clinic follow up at [place]). Nearly at goal and has close INR follow-up, so patient will be safe for discharge today. - Goal INR 2-3 --> await goal then anticipate PCP to follow-up INR Saturday with f/u visit also . - Not on heparin bridge due to thrombocytopenia, nor Lovenox due to renal function - Telemetry monitoring Assessment & Plan (07/08/2025 1:36 PM ENGINE BOSS): Known history of atrial flutter not on [...] (will need AC clinic follow up at [place]) - Goal INR 2-3 --> await goal then anticipate PCP to follow-up INR next week - Not on heparin bridge due to thrombocytopenia, nor Lovenox due to renal function - Telemetry monitoring Assessment & Plan (07/07/2025 9:19 AM ENGINE BOSS): Known history of atrial flutter not on [...] (will need AC clinic follow up at [place]) - not on heparin bridge due to thrombocytopenia, nor Lovenox due to renal function - telemetry monitoring Assessment & Plan (07/06/2025 10:53 AM ENGINE BOSS): Known history of atrial flutter not on [...] monitoring Assessment & Plan (07/05/2025 11:27 PM ENGINE BOSS): Known history of atrial flutter not on [...] monitoring Assessment & Plan (06/30/2025 3:49 PM ENGINE BOSS): EKGs since presentation have shown complete RBBB, aflutter and afib with RVR. Received metoprolol 5mg IV x3 in the ED. Currently aflutter. - Proceed with CTA to rule out L atrial appendage thrombus prior to surgery --> 06/30 found left atrial enlargement without thrombus in the left atrial appendage. Assessment & Plan (06/30/2025 1:10 PM ENGINE BOSS): EKGs since presentation have shown complete RBBB, sinus tachycardia, aflutter and afib with RVR. Received metoprolol 5mg IV x3 in the ED. Currently aflutter. - metoprolol 5mg IV - Proceed with CTA to rule out L atrial appendage thrombus prior to surgery Assessment & Plan (06/29/2025 8:08 PM ENGINE BOSS): EKGs since presentation have shown complete RBBB, sinus tachycardia, aflutter and afib with RVR. Received metoprolol 5mg IV x3 in the ED. Currently in sinus tachycardia. BP 92/55. Will hold off on further metoprolol for now. End-stage liver disease 06/29/2025 Assessment & Plan (06/30/2025 3:49 PM ENGINE BOSS): See Liver cirrhosis ESRD (end stage renal disease) 06/29/2025 Assessment & Plan (06/30/2025 3:49 PM ENGINE BOSS): See TR Tardive dyskinesia 06/16/2025 Assessment & Plan (06/30/2025 3:49 PM ENGINE BOSS): New onset of twisting facial and tongue movements over the past few weeks. No history of anti-dopaminergic agents. Patient reports improvement of symptoms since presentation. May be impacting slurred speech. - Consider neuro consult - Continue to monitor for improvement Assessment & Plan (06/30/2025 9:29 AM ENGINE BOSS): New onset of twisting facial and tongue movements over the past few weeks. No history of anti-dopaminergic agents. Patient reports improvement of symptoms since presentation. May be impacting slurred speech. - Consider neuro consult - Continue to monitor for improvement Assessment & Plan (06/29/2025 11:32 PM ENGINE BOSS): Relatively new onset of facial, tongue movements; no hx of anti-dopaminergic or antipsychotic drugs. Improvement of sx since initial presentation but consider etiology related to encephalopathy rather than TD. - Neuro c/s - CTM Assessment & Plan (06/29/2025 8:08 PM ENGINE BOSS): New onset of twisting facial and tongue movements over the past few weeks. No history of anti-dopaminergic agents. Patient reports improvement of symptoms since presentation. May be impacting slurred speech. - Consider neuro consult - Continue to monitor for improvement Assessment & Plan (06/16/2025 11:13 AM ENGINE BOSS): Her involuntary movements and grimacing his strongly [...] 03/06/2023 Assessment & Plan (07/09/2025 6:54 AM ENGINE BOSS): Baseline Cr around 1.3 - 1.7, presented [...] a.m. Assessment & Plan (07/08/2025 1:36 PM ENGINE BOSS): Baseline Cr around 1.3 - 1.7, presented [...] a.m. Assessment & Plan (07/07/2025 9:19 AM ENGINE BOSS): Baseline Cr around 1.3 - 1.7, presented [...] following Assessment & Plan (07/06/2025 10:53 AM ENGINE BOSS): Baseline Cr around 1.3 - 1.7, presented [...] following Assessment & Plan (07/05/2025 11:27 PM ENGINE BOSS): Baseline Cr around 1.3 - 1.7, presented [...] following Assessment & Plan (06/30/2025 9:29 AM ENGINE BOSS): Cr on presentation at 2.21 -> 2.58. [...] HRS Assessment & Plan (06/29/2025 11:32 PM ENGINE BOSS): See TR Assessment & Plan (06/29/2025 8:08 PM ENGINE BOSS): Cr on presentation at 2.21 -> 2.58. 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 female with a history of liver cirrhosis secondary to VELASCO, ERNESTINE, HTN, DM II, CKD, aflutter, who [...] paracentesis Assessment & Plan (06/29/2025 11:32 PM ENGINE BOSS): DDx includes hepatic encephalopathy ISO TR (elevated [...] considered Assessment & Plan (06/29/2025 8:08 PM ENGINE BOSS): Nael Cardoza is a 64 y.o. female with a history of liver cirrhosis secondary to VELASCO, ERNESTINE, HTN, DM II, CKD, aflutter, who [...] paracentesis Assessment & Plan (06/16/2025 11:10 AM ENGINE BOSS): Decompensated, based on history of hepatic encephalopathy [...] 10/10/2022 Assessment & Plan (10/12/2022 12:20 PM ENGINE BOSS): Episode of atrial flutter overnight with RVR up to 140s. Patient asymptomatic, normotensive. IV metoprolol X2 given to achieve rate control. [id number] vasc score of 3. TTE from 09/03 without valvular abnormalities. No new episodes today. Lytes within normal limits. - Continue monitor tech - Continue home dose of metoprolol 25mg BID - Given that patient might be listed for transplant, hepatology would prefer to avoid apixaban. Lovenox is not ideal given her platelet count less than 100. Her INR is too high to consider warfarin. Anemia 10/05/2022 Assessment & Plan (07/09/2025 6:54 AM ENGINE BOSS): Secondary to end stage liver disease, CKD, and acute illness. - CTM, transfuse PRN Assessment & Plan (07/08/2025 7:08 AM ENGINE BOSS): Secondary to end stage liver disease, CKD, and acute illness. - CTM, transfuse PRN Assessment & Plan (07/07/2025 9:19 AM ENGINE BOSS): Secondary to end stage liver disease, CKD, and acute illness. - CTM, transfuse PRN Assessment & Plan (07/06/2025 10:53 AM ENGINE BOSS): Secondary to end stage liver disease, CKD, and acute illness. - CTM, transfuse PRN Assessment & Plan (07/05/2025 11:27 PM ENGINE BOSS): Secondary to end stage liver disease, CKD, and acute illness. 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 female with a history of liver cirrhosis secondary to VELASCO, ERNESTINE, HTN, DM II, CKD, aflutter, who [...] paracentesis Assessment & Plan (06/29/2025 11:32 PM ENGINE BOSS): - See cirrhosis Assessment & Plan (06/29/2025 8:08 PM ENGINE BOSS): Nael Cardoza is a 64 y.o. female with a history of liver cirrhosis secondary to VELASCO, ERNESTINE, HTN, DM II, CKD, aflutter, who [...] paracentesis Assessment & Plan (06/16/2025 11:20 AM ENGINE BOSS): Mental status clear today. Continue lactulose and titrate to 3-5 bowel movements daily. Assessment & Plan (03/06/2023 5:49 PM CDT): Good control on current medical management. No changes indicated. Assessment & Plan (08/03/2022 1:05 PM ENGINE BOSS): Pt with hx of VELASCO cirrhosis presenting with progressively worsening mental status over past several weeks. On initial examination patient was AAOx1, on subsequent exam she is now AAOx2 with appropriate responses. NH3 75. Unfortunately no safe area for bedside diagnostic paracentesis. Slurred speech and concerns for swallowing. EMOTIONAL SUPPORT TEACHER completed swallow study and normal. Head CT: No acute intracranial abnormality. -Awaiting Liver MRI -Increased Lactulose to 4x daily (only 1 stool on 08/02) - Rifaximin and Lactulose (goal 3-5 bowel movements) - Fall precautions. - PT/OT: Home with assistance. Assessment & Plan (08/02/2022 2:34 PM ENGINE BOSS): Pt with hx of VELASCO cirrhosis presenting with progressively worsening mental status over past several weeks. On initial examination patient was AAOx1, on subsequent exam she is now AAOx2 with appropriate responses. NH3 75. Unfortunately no safe area for bedside diagnostic paracentesis. Slurred speech and concerns for swallowing. EMOTIONAL SUPPORT TEACHER completed swallow study and normal. Head CT: No acute intracranial abnormality. - Rifaximin and Lactulose (goal 3-5 bowel movements) - Fall precautions. - PT/OT: Home with assistance. - EMOTIONAL SUPPORT TEACHER completed bedside swallow and Normal Assessment & Plan (08/01/2022 3:28 PM ENGINE BOSS): Pt with hx of VELASCO cirrhosis presenting [...] concerns for swallowing. - Fall precautions. - EMOTIONAL SUPPORT TEACHER/PT/OT Consults. Assessment & Plan (08/01/2022 4:16 AM ENGINE BOSS): Pt with hx of VELASCO cirrhosis presenting [...] mellitus Assessment & Plan (07/09/2025 1:29 PM ENGINE BOSS): Home regimen is insulin glargine 44 units QHS and Humalog 8 units TIDAC. - continue dose-reduced Tresiba 30 units QHS + SSI, somewhat above goal glycemic control - Return to prior insulin regimen at discharge Assessment & Plan (07/08/2025 7:08 AM ENGINE BOSS): Home regimen is insulin glargine 44 units QHS and Humalog 8 units TIDAC. - continue dose-reduced Tresiba 30 units QHS + SSI Assessment & Plan (07/07/2025 9:19 AM ENGINE BOSS): Home regimen is insulin glargine 44 units QHS and Humalog 8 units TIDAC. - continue dose-reduced Tresiba 30 units QHS + SSI Assessment & Plan (07/06/2025 10:53 AM ENGINE BOSS): Home regimen is insulin glargine 44 units QHS and Humalog 8 units TIDAC. - continue dose-reduced Tresiba 30 units QHS + SSI Assessment & Plan (07/05/2025 11:27 PM ENGINE BOSS): Home regimen is insulin glargine 44 units QHS and Humalog 8 units TIDAC. - continue dose-reduced Tresiba 30 units QHS + SSI Assessment & Plan (06/30/2025 3:49 PM ENGINE BOSS): Regimen at home includes insulin glargine 44 units nightly, lispro 8 units with meals TID + SS up to 40u daily. - Tresiba 26 units nightly - lispro SS TID AC Assessment & Plan (06/30/2025 9:29 AM ENGINE BOSS): Regimen at home includes insulin glargine 44 units nightly, lispro 8 units with meals TID + SS up to 40u daily. - Tresiba 26 units nightly - lispro SS TID AC Assessment & Plan (06/29/2025 8:08 PM ENGINE BOSS): Regimen at home includes insulin glargine 44 [...] and exercise - Plan for meeting with para educator, dietitian next visit Assessment & Plan (10/12/2022 2:58 PM ENGINE BOSS): Previously on dose reduced insulin regimen at [facility] 20u lantus, 7u tid lispro + ssi. - Her blood sugars were initially on the lower side (90-100) in setting of poor po intake and TR. Continue SSI only for now and will uptitrate as needed. - Continue Lantus 10u/daily + lispro 4TID Assessment & Plan (08/03/2022 1:09 PM ENGINE BOSS): Home regimen of toujeo 42 units + SSI. -Lantus, Lispro TID AC and SSI -No Juice Diet -Consistent Carb+ 2gm NA diet. -CTM BGL Assessment & Plan (08/02/2022 2:38 PM ENGINE BOSS): Home regimen of toujeo 42 units + SSI. -Lantus, Lispro TID AC and SSI -No Juice Diet -Consistent Carb+ 2gm NA diet. -CTM BGL Assessment & Plan (08/01/2022 3:26 PM ENGINE BOSS): Home regimen of toujeo 42 units + SSI. Given TR and decreased PO intake, insulin regimen reduced to Lantus 20units. - Continue on 2g Na + DM2 diet - CTM BGL Assessment & Plan (08/01/2022 4:17 AM ENGINE BOSS): Home regimen of toujeo 42 units + SSI Given TR and decreased PO intake, will dose reduce insulin regimen, 20units + SSIand uptitrate as needed Continue on 2g Na + DM2 diet ERNESTINE (obstructive sleep apnea) Assessment & Plan (07/09/2025 6:54 AM ENGINE BOSS): - continue nocturnal NPPV Assessment & Plan (07/08/2025 7:08 AM ENGINE BOSS): - continue nocturnal NPPV Assessment & Plan (07/07/2025 9:19 AM ENGINE BOSS): - continue nocturnal NPPV Assessment & Plan (07/06/2025 10:53 AM ENGINE BOSS): - continue nocturnal NPPV Assessment & Plan (07/05/2025 11:27 PM ENGINE BOSS): - continue nocturnal NPPV Resolved Problems Problem Noted Date Diagnosed Date Resolved Date Screening for colorectal cancer 10/06/2024 11/25/2024 Hypoxic ischemic encephalopa thy of , unspecified stage 09/24/2024 10/08/2024 Esophageal varices without bleeding 07/17/2024 11/25/2024 Lymphedema 01/16/2023 07/15/2024 Other ascites 10/22/2022 07/15/2024 Overview (10/22/2022): Added automatically from request for surgery [id number] Volume overload 10/06/2022 05/29/2024 Assessment & Plan (10/10/2022 1:09 PM ENGINE BOSS): In the setting of VELASCO cirrhosis. Diuretics [...] adult 10/04/2022 024 Shortness of breath 10/02/2022 12/04/20 24 Esophageal dysphagia 08/22/2022 024 Overview (08/22/2022): Added automatically from request for surgery [id number] Portal vein thrombosis 08/01/202208/22 Assessment & Plan (08/03/2022 1:09 PM ENGINE BOSS): -Apixaban 2.5mg BID Assessment & Plan (08/02/2022 2:39 PM ENGINE BOSS): -Apixaban 2.5mg BID Assessment & Plan (08/01/2022 3:27 PM ENGINE BOSS): -Apixaban 2.5mg BID Assessment & Plan (08/01/2022 4:17 AM ENGINE BOSS): Continue home apixaban VELASCO (nonalcoholic steatohepatitis) 11/02/2021 07/15/2024 Abnormal mammogram of right breast 11/02/2020 08/22/2022 Preop cardiovascular exam 09/23/2019 Overview (09/23/2019): Added automatically from request for surgery [id number] Colon cancer screening 04/21/201908/22 Overview (04/21/2019): Added automatically from request for surgery [id number] Esophageal varices without bleeding (CMS/HCC) 04/21/20 19 08/22/2022 Overview (04/21/2019): Added automatically from request for surgery [id number] Mass of lower lobe of right lung 03/14/2018 02/24/2025 Cancer Staging:Clinical:Stage Unknown(cT1a, cNX) - Unsigned Steatosis of liver 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/2017 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 of ant icoagulant therapy 07/26/2016 08/22/2022 Neutropenia 07/14/2015 07/15/2024 Portal vein thrombosis 07/14/201508/22 BMI 45.0-49.9, adult 11/18/201405/29/ 024 Abnormal magnetic resonance imaging study 05/20/2014 08/22/2022 Biliary colic 05/10/2014 08/22/2022 Lesion of liver 04/30/2014 08/22/2022 Decreased granulocyte count 01/14/2014 07/15/2024 Lymphopenia 03/17/2013 07/15/2024 Lichen planus 06/03/2012 02/24/2025 Rash 03/25/2012 08/22/2022 Encounters Date Type Department Care Team Description 08/02/2025 Orders Only [facility] Scanning, Provider 07/30/2025 SHOP/CHAP [facility] [address] [facility] [phone] [place] [address] Marina Le, RN 07/29/2025 SHOP/CHAP [facility] [address] [id number] [place] [address] Marina Le, RN 07/28/2025 Orders Only [facility] [address] [facility] [address] Mailstop [phone] [place] [address] Celsa Vargas Metabolic dysfunction-associate d steatohepatitis (MASH) (Primary Dx) 07/28/2025 Telephone [facility] Liver [address] [facility] [address] Mailstop [phone] [place] [address] Cynthia Robert, RN 07/28/2025 Telephone [facility] [address] [facility] [address] Mailstop [phone] [place] [address] Cynthia Robert, RN 07/27/2025 9:50 AM ENGINE BOSS Office Visit [facility] [address] [facility] 5[address] [place] [address] [place] [address] 07/26/2025 Orders Only [facility] Scanning, Provider 07/21/2025 SHOP/CHAP Subsequent [facility]reach [facility] [address] [facility] Mailstop [phone] [place] [address] Marina Le, RN 07/16/2025 SHOP/CHAP Subsequent [facility]reach [facility] [address] [place], [place] [address] [place] [address] Marina Le, RN 07/12/2025 Orders Only [facility] Trans[facility] Liver [address] [place] [address] [place], [place] [id number] [place] [address] Chelsea Barker, TYRA 07/12/2025 SHOP/CHAP Initial Outreach [facility] [address] [place], [place] [id number] [place] [phone] Marina Le, TYRA 07/12/2025 SHOP/CHAP Initial Eligibility Review [facility] [address] [place], [place] [id number] [place] [phone] Marina Le, TYRA 07/09/2025 Telephone [facility] [address] [place] [id number] [place] [address] Chelsea Barker, TYRA 07/06/2025 Telephone [facility] Transplant Liver [address] [place] [address] Ashley Rahman, TYRA After Hours 07/02/2025 Telephone [facility] Transplant Liver [address] [facility] [place] [address] Chelsea Barker, RN 07/01/2025 Telephone [facility] Transplant Liver [address] [place] [address] [place] [address] Melissa Elizalde, TYRA Organ Offer Follow-up 06/30/2025 4:30 PM ENGINE BOSS Anesthesia Event [facility] Operating Room 1 [place] [phone] Carter Ortiz MD Montes de Oca Angarita, Arianna, MD 06/30/2025 2:15 PM ENGINE BOSS Ancillary Procedure [facility] Operating Room 1 [place] [address] 06/30/2025 Telephone [facility] [address] [facility] 8th [place] [address] [place] [phone] LesliePadmini 06/30/2025 Telephone [facility] [address] [facility] [address] [place] [phone] Lauren Garcia, Formerly [facility] Test Claims 06/29/2025 Telephone [facility] Transplant Liver [address] [facility] [address] Mailstop [phone] [place] [address] Ashley Rahman RN After Hours; Transplant Organ Offer 06/29/2025 Telephone [facility] Transplant Liver [address] [facility] [address] Mailstop [phone] [place] [address] Chelsea Barker, TYRA 06/28/2025 8:48 PM ENGINE BOSS - 07/09/2025 6:30 PM ENGINE BOSS Hospital Encounter [address] [address] Yossi Ga MD Brown, See Bhardwaj MD PhD Lexis, MD Jack Michaels, MD Ann Marie Kyle, MD Amelia Escobedo Matthew A., MD Stephenson, MD Alexx Alonso, MD Bin Irene, MD Bethanie Uriostegui, Magnus Camara MD 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 (Primary Dx); Hepatorenal syndrome (HCC); Typical atrial flutter (HCC); Atrial fibrillation and flutter; TR (acute kidney injury); Atrial flutter, unspecified type (HCC); Type 2 diabetes mellitus with stage 3a chronic kidney disease, unspecified whether long term care pharmacist insulin use (HCC) Discharge Disposition: Discharge to home or self care 06/28/2025 Documentation [facility] Transplant Liver [address] [facility] [address] Mailop -222 [place] [address] Celsa Vargas 06/17/2025 Telephone [facility] Transplant Liver [address]90 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 [address] [place] [address] [place] [address] Chelsea Barker RN 06/16/2025 Results Follow-Up [facility] Transplant Liver [address] [facility] [address] [place] [address] [place] [address] Chelsea Barker, TYRA Comprehensive metabolic panel, CBC without differential, Protime-INR, Additional followed-up results: 2 06/16/2025 Documentation [facility] Transplant Liver [address] [facility] [address] [place], [place] [address]op 6 [place] [address] Celsa Vargas 06/14/2025 Telephone [facility] Transplant Liver [address] [facility] 340 Mailop -437 [place] [address] Chelsea Barker, TYRA 06/14/2025 Documentation [facility] Transplant Liver [address] [facility] [address] Mailstop [phone] [place] [address] KareledaCelsa 06/14/2025 Telephone [facility] Transplant Liver [address] [facility] [address] Mailstop [phone] [place] [address] Chelsea Barker, TYRA 06/11/2025 Telephone [facility] Transplant Liver [address] [facility] [address] Mailstop [phone] [place] [address] Chelsea Barker, TYRA 06/11/2025 Telephone [facility] [address] [place] [address] 12th [place] [address] Ruslan Pedro MD 06/09/2025 Results Follow-Up [facility] Transplant Liver [address] [facility] 3401 Mailstop 07-29-153 [place] [address] Chelsea Barker, TYRA Comprehensive metabolic panel, Protime-INR, eGFR 06/08/2025 3:55 [place] [address] 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; Metabolic dysfunction-associate d steatohepatitis (MASH) 06/08/2025 Telephone [facility] Transplant Liver [address] [facility] [address] Mailstop [phone] [place] [address] Chelsea Barker, TYRA 06/08/2025 Home Infusion C [facility] [address] [place] [address] Yaw Catalan CPhT 06/08/2025 Telephone [facility] Transplant Liver [address] [facility] 3401 Mailstop [phone] [place] [address] Chelsea Barker, TYRA 06/07/2025 Telephone [facility] Transplant Liver [address] Mailstop 04-22-223 [place] [address] Chelsea Barker, TYRA 05/31/2025 Results Follow-Up [facility] Transplant Liver [address] [facility] 3401 Mailstop -[phone] [place] [address] Chelsea Barker, RN Transthoracic Echo (TTE) With Bubble Study 05/28/2025 2:03 PM CDT - 05/28/2025 11:59 PM CDT [facility] 49[address] [facility] 8th [place] [phone] 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 Discharge Disposition: Discharge to home or self care 05/28/2025 1:00 PM CDT Clinical Support [facility] Metabolism and Lipid [address] [facility] 13th [place] [address] [place] [phone] Type 2 diabetes mellitus with stage 3a chronic kidney disease, with long-term current use of insulin (HCC) (Primary Dx) 05/28/2025 12:30 PM CDT Office Visit [facility] Metabolism and Lipid [address] [facility] 13th [place] [address] [place] [phone] Marina Kennedy MD PhD Type 2 diabetes mellitus with stage 3b chronic kidney disease, with long-term current use of insulin (HCC) (Primary Dx); Stage 3b chronic kidney disease (HCC); 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 [address] Mailstop 26-29-026 [place] [address] Chelsea Barker, TYRA 05/13/2025 Documentation [facility] Transplant Liver [address] [facility] 3401 Mailstop -84-153 [place] [address] Celsa Vargas 05/13/2025 Telephone [facility] Transplant Liver [address] [facility] [address] Mailstop -09-028 [place] [address] Chelsea Barker RN 05/12/2025 12:00 PM CDT Lab [facility] [address] [place] [address] 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 05/12/2025 9:30 AM CDT Office Visit [facility] Gastroenterology [facility] 12th [place] [address] [place] [address] Daksha Fuller MD 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 340 Mailstop -598 [place] [address] Chelsea Barker, TYRA CBC with auto differential, Comprehensive metabolic panel, [id number], Tumor Marker, Additional followed-up results: 3 05/12/2025 Documentation [facility] Transplant Liver [address] [facility] [address] [place] [address] Celsa Vargas 05/12/2025 Telephone [facility] Transplant Liver [address] [facility] [address] [place] [address] Celsa Vargas 05/12/2025 Telephone [facility] Transplant Liver [address] [facility] [address] Mailstop -81-589 [place] [address] Chelsea Barker, TYRA 05/10/2025 Telephone [facility] 12th [place] [address] [place] [address] Ruby Guzman from Last 3 Months Immunizations Immunization Administration Dates Next Due Hep B Vaccine 01/22/2024,12/18/2023 Influenza, Quadrivalent, Spl it, Intramuscular 05/01/2019,05/26/2015 Influenza, Quadrivalent, Spl it, Preservative Free, Intramuscular 07/02/2023,04/29/2020,05/01/2019,05/09,05/08/2018,05/23/2017,05/17/2016 Influenza, Trivalent, IM (MDV) 04/28/2021,2013 Influenza, Trivalent, Preser vative Free, Intramuscular 05/29/2013 Influenza, Unspecified 05/04/2024 [employer] SARS-CoV-2 Vaccination 10/17/2020 Pneumococcal Conjugate PCV [...] radiation oncology 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 Never 10/05/2024 Do you belong to any clubs o r organizations such as nondenominational groups, unions, fraternal or athletic groups, or [...] place to sleep or slept in a correction (including now)? No 12/31/2022 Housing Stability Vital [...] were you homeless or living in a correction (including now)? No 10/05/2024 Humiliation, Afraid, Rape, [...] often do you attend chur ch or oriental orthodox services? Never 07/12/2025 Do you belong to any clubs o r organizations such as nondenominational groups, unions, fraternal or athletic groups, or [...] care, and heating? Not very hard 07/12/2025 [facility] Man of Occupat ional Health - Occupational Stress [...] were you homeless or living in a correction (including now)? 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 file Last Filed Vital Signs Vital Sign Reading Time Taken Comments Blood Pressure 145/72 07/27/2025 10:01 AM ENGINE BOSS Pulse 69 07/27/2025 10:01 AM ENGINE BOSS Temperature 37.1 C (98.7 F) 07/27/2025 10:01 AM ENGINE BOSS Respiratory Rate 18 07/09/2025 1:44 PM ENGINE BOSS Oxygen Saturation 98% 07/09/2025 1:44 PM ENGINE BOSS Inhaled Oxygen Concentration - - Weight 114.6 kg (252 lb 9.6 oz) 025 10:01 AM ENGINE BOSS Height 170.2 cm (5' 7) 07/27/2025 10:0 1 AM ENGINE BOSS Body Mass Index 39.56 07/27/2025 10:01 AM ENGINE BOSS Plan of Treatment Scheduled Procedures Name Priority Associated Diagnoses Date/Ti me TRANSPLANT LIVER Metabolic dysfunction-associated steatohepatitis (MASH) TRANSPLANT KIDNEY Metabolic dysfunction-associated steatohepatitis (MASH) COLONOSCOPY Routine adult health maintenance VELASCO (nonalcoholic [...] 06/30/2025, 06/12, 04/22/2024, Additional history exists eGFR 07/26/2026 07/26/2025, 06/13, 07/08/2025, Additional history exists Colon Cancer Screening-Colonoscopy 05/30/2032 05/30/2022, 10/26/2019 Zoster Vaccine Completed 02/17/2020, 05/29/2019 Colon Cancer Screening-CT Colonography Discontinued 05/30/2022, 10/26/2019 Colon Cancer Screening-DNA Stool Discontinued 05/30/20, 10/26/2019 Colon Cancer Screening-FIT Discontinued 05/30/2022, Colon Cancer Screening-Sigmoidoscopy Discontinued 05/30/2022, 10/26/2019 Hepatitis C Screening Completed 06/30/2025 , 06/30/2025, 06/16/2023, Additional history exists Procedures Procedure Name Priority Date/Time Associated Diagnosis Comments SCAN - LABS 08/02/2025 CBC WITHOUT DIFFERENTIAL Routine 07/26/2025 3:22 PM ENGINE BOSS COMPREHENSIVE METABOLIC PANEL Routine 07/26/2025 3:22 PM ENGINE BOSS PROTIME-INR Routine 07/26/2025 3:22 PM ENGINE BOSS SCAN - LABS 07/26/2025 POCT GLUCOSE DEVICE Routine 07/09/2025 12:16 PM ENGINE BOSS POCT GLUCOSE DEVICE Routine 07/09/2025 7 :29 AM ENGINE BOSS EGFR Routine 07/09/2025 12:45 AM ENGINE BOSS IMMATURE PLATELET FRACTION Routine 07/09/2025 12:45 AM ENGINE BOSS DIFFERENTIAL AUTO Routine 07/09/2025 12:45 AM ENGINE BOSS PROTIME-INR Routine 07/09/2025 12:45 AM ENGINE BOSS TYPE AND SCREEN Timed 07/09/2025 12:45 AM ENGINE BOSS PHOSPHORUS Routine 07/09/2025 12:45 AM ENGINE BOSS HEPATIC FUNCTION PANEL Routine 07/09/2025 12:45 AM ENGINE BOSS CBC WITH AUTO DIFFERENTIAL Routine 07/09/2025 12:45 AM ENGINE BOSS BASIC METABOLIC PANEL Routine 07/09/2025 12:45 AM ENGINE BOSS POCT GLUCOSE DEVICE Routine 07/08/2025 10:22 PM ENGINE BOSS POCT GLUCOSE DEVICE Routine 07/08/2025 5 :30 PM ENGINE BOSS POCT GLUCOSE DEVICE Routine 07/08/2025 12:25 PM ENGINE BOSS POCT GLUCOSE DEVICE Routine 07/08/2025 7 :59 AM ENGINE BOSS POCT GLUCOSE DEVICE Routine 07/08/2025 1 :42 AM ENGINE BOSS IMMATURE PLATELET FRACTION Routine 07/08/2025 12:31 AM ENGINE BOSS EGFR Routine 07/08/2025 12:31 AM ENGINE BOSS DIFFERENTIAL AUTO Routine 07/08/2025 12:31 AM ENGINE BOSS PHOSPHORUS Routine 07/08/2025 12:31 AM ENGINE BOSS HEPATIC FUNCTION PANEL Routine 07/08/2025 12:31 AM ENGINE BOSS CBC WITH AUTO DIFFERENTIAL Routine 07/08/2025 12:31 AM ENGINE BOSS BASIC METABOLIC PANEL Routine 07/08/2025 12:31 AM ENGINE BOSS POCT GLUCOSE DEVICE Routine 07/07/2025 7 :31 PM ENGINE BOSS POCT GLUCOSE DEVICE Routine 07/07/2025 5 :28 PM ENGINE BOSS POCT GLUCOSE DEVICE Routine 07/07/2025 1 :10 PM ENGINE BOSS POCT GLUCOSE DEVICE Routine 07/07/2025 11:09 AM ENGINE BOSS PROTIME-INR Timed 07/07/2025 9:34 AM ENGINE BOSS POCT GLUCOSE DEVICE Routine 07/07/2025 8 :22 AM ENGINE BOSS POCT GLUCOSE DEVICE Routine 07/07/2025 2 :06 AM ENGINE BOSS EGFR Routine 07/06/2025 11:48 PM ENGINE BOSS DIFFERENTIAL AUTO Routine 07/06/2025 11:48 PM ENGINE BOSS PHOSPHORUS Routine 07/06/2025 11:48 PM ENGINE BOSS MAGNESIUM Routine 07/06/2025 11:48 PM ENGINE BOSS HEPATIC FUNCTION PANEL Routine 07/06/2025 11:48 PM ENGINE BOSS CBC WITH AUTO DIFFERENTIAL Routine 07/06/2025 11:48 PM ENGINE BOSS BASIC METABOLIC PANEL Routine 07/06/2025 11:48 PM ENGINE BOSS POCT GLUCOSE DEVICE Routine 07/06/2025 9 :04 PM ENGINE BOSS POCT GLUCOSE DEVICE Routine 07/06/2025 4 :47 PM ENGINE BOSS POCT GLUCOSE DEVICE Routine 07/06/2025 11:38 AM ENGINE BOSS POCT GLUCOSE DEVICE Routine 07/06/2025 8 :52 AM ENGINE BOSS POCT GLUCOSE DEVICE Routine 07/06/2025 2 :31 AM ENGINE BOSS EGFR Routine 07/05/2025 10:45 PM ENGINE BOSS DIFFERENTIAL AUTO Routine 07/05/2025 10:45 PM ENGINE BOSS TYPE AND SCREEN Timed 07/05/2025 10:45 PM ENGINE BOSS PHOSPHORUS Routine 07/05/2025 10:45 PM ENGINE BOSS MAGNESIUM Routine 07/05/2025 10:45 PM ENGINE BOSS HEPATIC FUNCTION PANEL Routine 07/05/2025 10:45 PM ENGINE BOSS CBC WITH AUTO DIFFERENTIAL Routine 07/05/2025 10:45 PM ENGINE BOSS BASIC METABOLIC PANEL Routine 07/05/2025 10:45 PM ENGINE BOSS POCT GLUCOSE DEVICE Routine 07/05/2025 8 :11 PM ENGINE BOSS POCT GLUCOSE DEVICE Routine 07/05/2025 4 :18 PM ENGINE BOSS ECG 12-LEAD STAT 07/05/2025 10:54 AM ENGINE BOSS ECG 12-LEAD STAT 07/05/2025 9:42 AM ENGINE BOSS POCT GLUCOSE DEVICE Routine 07/05/2025 7 :12 AM ENGINE BOSS CRITICAL CARE Routine 07/05/2025 6:28 AM ENGINE BOSS 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 POCT GLUCOSE DEVICE Routine 07/04/2025 8 :44 PM ENGINE BOSS EGFR Routine 07/04/2025 8:27 PM ENGINE BOSS IMMATURE PLATELET FRACTION Routine 07/04/2025 8:27 PM ENGINE BOSS DIFFERENTIAL AUTO Routine 07/04/2025 8:2 7 PM ENGINE BOSS PROTIME-INR Routine 07/04/2025 8:27 PM ENGINE BOSS PHOSPHORUS Routine 07/04/2025 8:27 PM ENGINE BOSS MAGNESIUM Routine 07/04/2025 8:27 PM ENGINE BOSS HEPATIC FUNCTION PANEL Routine 07/04/2025 8:27 PM ENGINE BOSS CBC WITH AUTO DIFFERENTIAL Routine 07/04/2025 8:27 PM ENGINE BOSS BASIC METABOLIC PANEL Routine 07/04/2025 8:27 PM ENGINE BOSS CRITICAL CARE Routine 07/04/2025 6:07 PM ENGINE BOSS 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 POCT GLUCOSE DEVICE Routine 07/04/2025 5 :25 PM ENGINE BOSS POCT GLUCOSE DEVICE Routine 07/04/2025 11:07 AM ENGINE BOSS POCT GLUCOSE DEVICE Routine 07/04/2025 7 :14 AM ENGINE BOSS CRITICAL CARE Routine 07/04/2025 6:31 AM ENGINE BOSS 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 EGFR Timed 07/04/2025 3:55 AM ENGINE BOSS IMMATURE PLATELET FRACTION Timed 07/04/2025 3:55 AM ENGINE BOSS BASIC METABOLIC PANEL Timed 07/04/2025 3:55 AM ENGINE BOSS CBC WITHOUT DIFFERENTIAL Timed 07/04/2025 3:55 AM ENGINE BOSS POCT GLUCOSE DEVICE Routine 07/04/2025 2 :05 AM ENGINE BOSS TRANSFUSE RED BLOOD CELLS Timed 07/03/2025 9:08 PM ENGINE BOSS PREPARE RBC STAT 07/03/2025 8:38 PM ENGINE BOSS POCT GLUCOSE DEVICE Routine 07/03/2025 8 :34 PM ENGINE BOSS EGFR Routine 07/03/2025 7:58 PM ENGINE BOSS PROTIME-INR STAT 07/03/2025 7:58 PM ENGINE BOSS IMMATURE PLATELET FRACTION Routine 07/03/2025 7:58 PM ENGINE BOSS DIFFERENTIAL AUTO Routine 07/03/2025 7:5 8 PM ENGINE BOSS APTT STAT 07/03/2025 7:58 PM ENGINE BOSS AMMONIA Routine 07/03/2025 7:58 PM ENGINE BOSS PHOSPHORUS Routine 07/03/2025 7:58 PM ENGINE BOSS MAGNESIUM Routine 07/03/2025 7:58 PM ENGINE BOSS HEPATIC FUNCTION PANEL Routine 07/03/2025 7:58 PM ENGINE BOSS CBC WITH AUTO DIFFERENTIAL Routine 07/03/2025 7:58 PM ENGINE BOSS BASIC METABOLIC PANEL Routine 07/03/2025 7:58 PM ENGINE BOSS CRITICAL CARE Routine 07/03/2025 6:42 PM ENGINE BOSS 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 XR CHEST 1 VIEW Timed 07/03/2025 5:25 PM ENGINE BOSS CRITICAL CARE Routine 07/03/2025 3:38 PM ENGINE BOSS TR (acute kidney injury) Atrial flutter, unspecified type (HCC) POCT GLUCOSE DEVICE Routine 07/03/2025 3 :04 PM ENGINE BOSS APTT STAT 07/03/2025 2:05 PM ENGINE BOSS POCT GLUCOSE DEVICE Routine 07/03/2025 11:44 AM ENGINE BOSS EGFR Timed 07/03/2025 10:47 AM ENGINE BOSS BASIC METABOLIC PANEL Timed 07/03/2025 10:47 AM ENGINE BOSS CRITICAL CARE Routine 07/03/2025 7:28 AM ENGINE BOSS 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 PROTIME-INR STAT 07/03/2025 7:17 AM ENGINE BOSS APTT STAT 07/03/2025 7:17 AM ENGINE BOSS EGFR Timed 07/03/2025 5:15 AM ENGINE BOSS BASIC METABOLIC PANEL Timed 07/03/2025 5:15 AM ENGINE BOSS POCT GLUCOSE DEVICE Routine 07/03/2025 2 :15 AM ENGINE BOSS US KIDNEY COMPLETE IP Routine 07/03/2025 2: 14 AM ENGINE BOSS APTT STAT 07/03/2025 12:50 AM ENGINE BOSS POCT GLUCOSE DEVICE Routine 07/02/2025 9 :55 PM ENGINE BOSS EGFR Routine 07/02/2025 9:44 PM ENGINE BOSS DIFFERENTIAL AUTO Routine 07/02/2025 9:4 4 PM ENGINE BOSS TYPE AND SCREEN Timed 07/02/2025 9:44 PM ENGINE BOSS PHOSPHORUS Routine 07/02/2025 9:44 PM ENGINE BOSS MAGNESIUM Routine 07/02/2025 9:44 PM ENGINE BOSS HEPATIC FUNCTION PANEL Routine 07/02/2025 9:44 PM ENGINE BOSS CBC WITH AUTO DIFFERENTIAL Routine 07/02/2025 9:44 PM ENGINE BOSS BASIC METABOLIC PANEL Routine 07/02/2025 9:44 PM ENGINE BOSS NH ARTL CATHJ/CANNULJ MNTR/TRANSFUSION SPX PRQ Routine 07/02/2025 9:30 PM ENGINE BOSS 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 CRITICAL CARE Routine 07/02/2025 8:18 PM ENGINE BOSS 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 POCT GLUCOSE DEVICE Routine 07/02/2025 7 :08 PM ENGINE BOSS POCT GLUCOSE DEVICE Routine 07/02/2025 7 :07 PM ENGINE BOSS APTT STAT 07/02/2025 5:10 PM ENGINE BOSS POCT GLUCOSE DEVICE Routine 07/02/2025 3 :09 PM ENGINE BOSS IMMATURE PLATELET FRACTION Timed 07/02/2025 2:42 PM ENGINE BOSS CBC WITHOUT DIFFERENTIAL Timed 07/02/2025 2:42 PM ENGINE BOSS POCT GLUCOSE DEVICE Routine 07/02/2025 11:03 AM ENGINE BOSS TRANSFUSE RED BLOOD CELLS Timed 07/02/2025 9:49 AM ENGINE BOSS UREA NITROGEN, URINE, RANDOM STAT 07/02/2025 8:59 AM ENGINE BOSS PROTIME-INR STAT 07/02/2025 8:59 AM ENGINE BOSS APTT STAT 07/02/2025 8:59 AM ENGINE BOSS CREATININE, URINE, RANDOM STAT 07/02/2025 8:59 AM ENGINE BOSS SODIUM, URINE, RANDOM STAT 07/02/2025 8:59 AM ENGINE BOSS URINALYSIS AND REFLEX TO MICROSCOPIC STAT 07/02/2025 8:59 AM ENGINE BOSS POCT GLUCOSE DEVICE Routine 07/02/2025 7 :23 AM ENGINE BOSS CRITICAL CARE Routine 07/02/2025 6:15 AM ENGINE BOSS 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 Hepatorenal syndrome (HCC) EGFR Timed 07/02/2025 5:58 AM ENGINE BOSS CBC WITHOUT DIFFERENTIAL Timed 07/02/2025 5:58 AM ENGINE BOSS BASIC METABOLIC PANEL Timed 07/02/2025 5:58 AM ENGINE BOSS POCT GLUCOSE DEVICE Routine 07/02/2025 3 :45 AM ENGINE BOSS EGFR Routine 07/01/2025 8:55 PM ENGINE BOSS DIFFERENTIAL AUTO Routine 07/01/2025 8:5 5 PM ENGINE BOSS PHOSPHORUS Routine 07/01/2025 8:55 PM ENGINE BOSS MAGNESIUM Routine 07/01/2025 8:55 PM ENGINE BOSS HEPATIC FUNCTION PANEL Routine 07/01/2025 8:55 PM ENGINE BOSS CBC WITH AUTO DIFFERENTIAL Routine 07/01/2025 8:55 PM ENGINE BOSS BASIC METABOLIC PANEL Routine 07/01/2025 8:55 PM ENGINE BOSS POCT GLUCOSE DEVICE Routine 07/01/2025 8 :32 PM ENGINE BOSS INFECTION PREVENTION TOMASA AURIS PCR, SURVEILLANCE Routine 07/01/2025 7:30 PM ENGINE BOSS CRITICAL CARE Routine 07/01/2025 6:33 PM ENGINE BOSS 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 POCT GLUCOSE DEVICE Routine 07/01/2025 5 :14 PM ENGINE BOSS POCT GLUCOSE DEVICE Routine 07/01/2025 1 :16 PM ENGINE BOSS POCT GLUCOSE DEVICE Routine 07/01/2025 8 :04 AM ENGINE BOSS CRITICAL CARE Routine 07/01/2025 7:51 AM ENGINE BOSS 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 Atrial fibrillation and flutter EGFR Timed 07/01/2025 5:16 AM ENGINE BOSS BASIC METABOLIC PANEL Timed 07/01/2025 5:16 AM ENGINE BOSS POCT GLUCOSE DEVICE Routine 07/01/2025 4 :02 AM ENGINE BOSS ECG 12-LEAD STAT 07/01/2025 12:17 AM ENGINE BOSS POCT GLUCOSE DEVICE Routine 07/01/2025 12:01 AM ENGINE BOSS ELECTIVE CARDIOVERSION Routine 07/01/2025 12:00 AM ENGINE BOSS Typical atrial flutter (HCC) EGFR Routine 06/30/2025 9:06 PM ENGINE BOSS CBC WITHOUT DIFFERENTIAL Routine 06/30/2025 9:06 PM ENGINE BOSS PHOSPHORUS Routine 06/30/2025 9:06 PM ENGINE BOSS MAGNESIUM Routine 06/30/2025 9:06 PM ENGINE BOSS COMPREHENSIVE METABOLIC PANEL Routine 06/30/2025 9:06 PM ENGINE BOSS PROTIME-INR STAT 06/30/2025 9:06 PM ENGINE BOSS APTT STAT 06/30/2025 9:06 PM ENGINE BOSS POCT GLUCOSE DEVICE Routine 06/30/2025 7 :56 PM ENGINE BOSS CRITICAL CARE Routine 06/30/2025 6:23 PM ENGINE BOSS ECG 12-LEAD STAT 06/30/2025 6:21 PM ENGINE BOSS POCT GLUCOSE DEVICE Routine 06/30/2025 6 :13 PM ENGINE BOSS EGFR Routine 06/30/2025 4:58 PM ENGINE BOSS DIFFERENTIAL AUTO Routine 06/30/2025 4:5 8 PM ENGINE BOSS PHOSPHORUS Routine 06/30/2025 4:58 PM ENGINE BOSS MAGNESIUM Routine 06/30/2025 4:58 PM ENGINE BOSS HEPATIC FUNCTION PANEL Routine 06/30/2025 4:58 PM ENGINE BOSS CBC WITH AUTO DIFFERENTIAL Routine 06/30/2025 4:58 PM ENGINE BOSS BASIC METABOLIC PANEL Routine 06/30/2025 4:58 PM ENGINE BOSS POC BLOOD GAS AND CHEMISTRIES, ARTERIAL Routine 06/30/2025 4:57 PM ENGINE BOSS POCT GLUCOSE DEVICE Routine 06/30/2025 4 :31 PM ENGINE BOSS HLA DONOR SPECIFIC ANTIBODY REPORT 06/30/2025 4:[address] HEART MORPHOLOGY W CONTRAST Critical/Life- Threatening 06/30/2025 3:01 PM ENGINE BOSS TONE ADD-ON FOR OR Routine 06/30/2025 2:1 0 PM ENGINE BOSS POCT GLUCOSE DEVICE Routine 06/30/2025 2 :02 PM ENGINE BOSS PREPARE RBC STAT 06/30/2025 1:56 PM ENGINE BOSS TRANSTHORACIC ECHO (TTE) COMPLETE W DOPPLER/CF W CONTRAST STAT 06/30/2025 1:28 PM ENGINE BOSS POCT GLUCOSE DEVICE Routine 06/30/2025 11:53 AM ENGINE BOSS POCT GLUCOSE DEVICE Routine 06/30/2025 7 :57 AM ENGINE BOSS HLA ANTIBODY SCREEN - SAB (CLASS I AND CLASS II) Routine 06/30/2025 1:40 AM ENGINE BOSS 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 HLA ANTIBODY SCREEN BY PRA OR SAB PER SCHEDULE (CLASS I AND CLASS II) STAT 06/30/2025 1:40 AM ENGINE BOSS 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 EGFR STAT 06/30/2025 12:43 AM ENGINE BOSS DIFFERENTIAL AUTO STAT 06/30/2025 12:43 AM ENGINE BOSS [id number] , TUMOR MARKER Routine 06/30/2025 12:43 AM ENGINE BOSS HLA ANTIBODY SCREEN BY PRA Routine 06/30/2025 12:43 AM ENGINE BOSS GAMMA GT STAT 06/30/2025 12:43 AM ENGINE BOSS BILIRUBIN, TOTAL AND DIRECT STAT 06/30/2025 12:43 AM ENGINE BOSS FIBRINOGEN STAT 06/30/2025 12:43 AM ENGINE BOSS HLA ANTIBODY SCREEN BY PRA STAT 06/30/2025 12:43 AM ENGINE BOSS IRON PROFILE W/ IBC Routine 06/30/2025 12:43 AM ENGINE BOSS LIPID PANEL Routine 06/30/2025 12:43 AM ENGINE BOSS URIC ACID Routine 06/30/2025 12:43 AM ENGINE BOSS FERRITIN Routine 06/30/2025 12:43 AM ENGINE BOSS TYPE AND SCREEN STAT 06/30/2025 12:43 AM ENGINE BOSS PHOSPHORUS STAT 06/30/2025 12:43 AM ENGINE BOSS PROTIME-INR STAT 06/30/2025 12:43 AM ENGINE BOSS COMPREHENSIVE METABOLIC PANEL STAT 06/30/2025 12:43 AM ENGINE BOSS CBC WITH AUTO DIFFERENTIAL STAT 06/30/2025 12:43 AM ENGINE BOSS APTT STAT 06/30/2025 12:43 AM ENGINE BOSS SEPSIS LACTATE WITH REFLEX Timed 06/30/2025 12:43 AM ENGINE BOSS HEPATITIS C RNA, QUANTITATIVE, PCR Routine 06/30/2025 12:43 AM ENGINE BOSS COVID-19 CORONAVIRUS RNA Routine 06/30/2025 12:43 AM ENGINE BOSS HIV 1/2 ANTIBODY PLUS P24 ANTIGEN Routine 06/30/2025 12:43 AM ENGINE BOSS HEPATITIS C ANTIBODY Routine 06/30/2025 12:43 AM ENGINE BOSS HEPATITIS B SURFACE ANTIGEN Routine 06/30/2025 12:43 AM ENGINE BOSS HEPATITIS B SURFACE ANTIBODY (IMMUNE STATUS) Routine 06/30/2025 12:43 AM ENGINE BOSS HEPATITIS B CORE ANTIBODY, TOTAL Routine 06/30/2025 12:43 AM ENGINE BOSS XR CHEST 1 VIEW ED Urgent/IP Urgent 06/29/2025 11:36 PM ENGINE BOSS HLA VIRTUAL CROSSMATCH RECIPIENT REPORT 06/29/2025 10:51 PM ENGINE BOSS PREPARE RBC Timed 06/29/2025 10:48 PM ENGINE BOSS DIFFERENTIAL AUTO Routine 06/29/2025 10:41 PM ENGINE BOSS PHOSPHORUS Routine 06/29/2025 10:41 PM ENGINE BOSS MAGNESIUM Routine 06/29/2025 10:41 PM ENGINE BOSS HEPATIC FUNCTION PANEL Routine 06/29/2025 10:41 PM ENGINE BOSS CBC WITH AUTO DIFFERENTIAL Routine 06/29/2025 10:41 PM ENGINE BOSS INFECTION PREVENTION MRSA ONLY (STAPHYLOCOCCUS AUREUS) PCR STAT 06/29/2025 9:25 PM ENGINE BOSS POCT GLUCOSE DEVICE Routine 06/29/2025 7 :48 PM ENGINE BOSS ECG 12-LEAD STAT 06/29/2025 6:03 PM ENGINE BOSS SEPSIS LACTATE WITH REFLEX Timed 06/29/2025 3:20 PM ENGINE BOSS POCT GLUCOSE DEVICE Routine 06/29/2025 3 :19 PM ENGINE BOSS CREATININE, URINE, RANDOM STAT 06/29/2025 1:16 PM ENGINE BOSS UREA NITROGEN, URINE, RANDOM STAT 06/29/2025 1:16 PM ENGINE BOSS SODIUM, URINE, RANDOM STAT 06/29/2025 1:16 PM ENGINE BOSS SEPSIS LACTATE WITH REFLEX STAT 06/29/2025 11:44 AM ENGINE BOSS ECG 12-LEAD Routine 06/29/2025 11:20 AM ENGINE BOSS POCT GLUCOSE DEVICE Routine 06/29/2025 11:16 AM ENGINE BOSS URINALYSIS, MICROSCOPIC ONLY STAT 06/29/2025 8:09 AM ENGINE BOSS URINE CULTURE STAT 06/29/2025 8:09 AM ENGINE BOSS URINALYSIS AND REFLEX TO MICROSCOPIC AND CULTURE STAT 06/29/2025 8:09 AM ENGINE BOSS MAGNESIUM STAT 06/29/2025 8:00 AM ENGINE BOSS EGFR STAT 06/29/2025 8:00 AM ENGINE BOSS BASIC METABOLIC PANEL STAT 06/29/2025 8:00 AM ENGINE BOSS TROPONIN I HIGH-SENSITIVITY 6-HOUR Timed 06/29/2025 8:00 AM ENGINE BOSS POCT GLUCOSE DEVICE Routine 06/29/2025 7 :57 AM ENGINE BOSS TROPONIN I HIGH-SENSITIVITY 4-HOUR Timed 06/29/2025 6:20 AM ENGINE BOSS ECG 12-LEAD Routine 06/29/2025 5:01 AM ENGINE BOSS TROPONIN I HIGH-SENSITIVITY 2-HOUR Timed 06/29/2025 4:10 AM ENGINE BOSS POCT GLUCOSE DEVICE Routine 06/29/2025 3 :53 AM ENGINE BOSS TROPONIN I HIGH-SENSITIVITY SERIES (BASELINE, 2HR, 4HR, 6HR) Routine 06/29/2025 2:00 AM ENGINE BOSS ECG 12-LEAD Routine 06/29/2025 1:44 AM ENGINE BOSS POCT GLUCOSE DEVICE Routine 06/28/2025 11:46 PM ENGINE BOSS NH CRITICAL CARE ILL/INJURED PATIENT INIT 30-74 MIN Routine 06/28/2025 11:00 PM ENGINE BOSS PROTIME-INR STAT 06/28/2025 10:32 PM ENGINE BOSS RESPIRATORY PATHOGEN PANEL STAT 06/28/2025 10:32 PM ENGINE BOSS BLOOD CULTURE STAT 06/28/2025 10:32 PM ENGINE BOSS BLOOD CULTURE STAT 06/28/2025 10:32 PM ENGINE BOSS XR CHEST 1 VIEW ED 06/28/2025 10:31 PM ENGINE BOSS HEMOGLOBIN A1C STAT 06/28/2025 8:28 PM ENGINE BOSS LIPID PANEL STAT 06/28/2025 8:28 PM ENGINE BOSS EGFR STAT 06/28/2025 8:28 PM ENGINE BOSS DIFFERENTIAL AUTO STAT 06/28/2025 8:2 8 PM ENGINE BOSS AMMONIA STAT 06/28/2025 8:28 PM ENGINE BOSS LIPASE STAT 06/28/2025 8:28 PM ENGINE BOSS BASIC METABOLIC PANEL STAT 06/28/2025 8:28 PM ENGINE BOSS HEPATIC FUNCTION PANEL STAT 06/28/2025 8:28 PM ENGINE BOSS CBC WITH AUTO DIFFERENTIAL STAT 06/28/2025 8:28 PM ENGINE BOSS ECG 12-LEAD STAT 06/28/2025 8:05 PM ENGINE BOSS POCT GLUCOSE DEVICE Routine 06/28/2025 4 :52 PM ENGINE BOSS POCT GLUCOSE DEVICE Routine 06/28/2025 4 :32 PM ENGINE BOSS EGFR Routine 06/16/2025 11:29 AM ENGINE BOSS 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 [id number] , TUMOR MARKER Routine 06/16/2025 11:29 AM ENGINE BOSS 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 PROTIME-INR Routine 06/16/2025 11:29 AM ENGINE BOSS 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 CBC WITHOUT DIFFERENTIAL Routine 06/16/2025 11:29 AM ENGINE BOSS 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 COMPREHENSIVE METABOLIC PANEL Routine 06/16/2025 11:29 AM ENGINE BOSS 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 EGFR Routine 06/08/2025 4:14 PM CDT 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 Metabolic dysfunction-associate d steatohepatitis (MASH) PROTIME-INR Routine 06/08/2025 4:14 PM CDT 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 Metabolic dysfunction-associate d steatohepatitis (MASH) COMPREHENSIVE METABOLIC PANEL Routine 06/08/2025 4:14 PM CDT 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 Metabolic dysfunction-associate d steatohepatitis (MASH) TRANSTHORACIC ECHO (TTE) COMPLETE W DOPPLER/CF W CONTRAST W BUBBLE Routine 05/28/2025 4:06 PM CDT 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 POCT HEMOGLOBIN A1C Routine 05/28/2025 12:32 PM CDT Type 2 diabetes mellitus with stage 3b chronic kidney disease, with long-term current use of insulin (HCC) POCT GLUCOSE Routine 05/28/2025 12:32 PM CDT Type 2 diabetes mellitus with stage 3b chronic kidney disease, with long-term current use of insulin (HCC) EGFR Routine 05/12/2025 10:46 AM CDT 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 DIFFERENTIAL AUTO Routine 05/12/2025 10:46 AM CDT 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 PROTIME-INR Routine 05/12/2025 10:46 AM CDT 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 [id number] , TUMOR MARKER Routine 05/12/2025 10:46 AM CDT 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 COMPREHENSIVE METABOLIC PANEL Routine 05/12/2025 10:46 AM CDT 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 CBC WITH AUTO DIFFERENTIAL Routine 05/12/2025 10:46 AM CDT 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 PAP AND HIGH RISK HPV, REFLEX TO GENOTYPING Routine 04/28/2024 10:41 AM CDT SCREENING MAMMOGRAM BILATERAL W PAL IP Routine 04/27/2024 1:55 PM CDT COLONOSCOPY 05/30/2022 9:28 AM CDT ALBUMIN CREATININE RATIO, URINE Routine 03/01/2021 2:45 PM CDT Type 2 diabetes mellitus without complication, unspecified whether long term care pharmacist insulin use (HCC) 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) from Last 3 Months or Most Recently Relevant to Health Maintenance Results * SCAN - LABS (08/02/2025) us Provider Scanning Edited Result - Final * (ABNORMAL) Protime-INR (07/26/2025 3:22 PM ENGINE BOSS) SCRIBED PT 45.8(A) 9.5 - 12.1 sec TXP NO LAB FOUND SCRIBED INR 4.8 na - na sec TXP NO LAB FOUND Blood 07/26/2025 3:22 PM ENGINE BOSS Historical Provider LAB BLOOD ORDERABLES Ju dumont Result TXP NO LAB FOUND * (ABNORMAL) CBC without differential (07/26/2025 3:22 PM ENGINE BOSS) SCRIBED WBC 3.8 3.8 - 9.9 K/cumm TXP NO LAB FOUND SCRIBED Hemoglobin 9(A) 11.9 - 15.5 g/dL TXP NO LAB FOUND SCRIBED Hematocrit 28.5(A) 38.9 - 50.3 % TXP NO LAB FOUND SCRIBED Platelets 65(A) 150 - 400 K/cumm TXP NO LAB FOUND SCRIBED MPV 11.8 9.1 - 12.3 fL TXP NO LAB FOUND SCRIBED RBC 3.26(A) 3.90 - 5.20 M/cumm TXP NO LAB FOUND SCRIBED MCV 87.4 81.3 - 96.4 fL TXP NO LAB FOUND SCRIBED MCH 27.6 27.1 - 33.3 pg TXP NO LAB FOUND SCRIBED MCHC 31.6(A) 32.3 - 35.7 g/dL TXP NO LAB FOUND SCRIBED RDW CV 18.5(A) 11.1 - 14.9 % TXP NO LAB FOUND Blood 07/26/2025 3:22 PM ENGINE BOSS Historical Provider LAB BLOOD ORDERABLES Ju l Result Performing Organization Address City/[facility]/ZIP Co de Phone Number TXP NO LAB FOUND * (ABNORMAL) Comprehensive metabolic panel (07/26/2025 3:22 PM ENGINE BOSS) SCRIBED Sodium 140 135 - 145 mmol/L TXP NO LAB FOUND SCRIBED Potassium 3.4 3.3 - 5.2 mmol/L TXP NO LAB FOUND SCRIBED Chloride 103 97 - 110 mmol/L TXP NO LAB FOUND SCRIBED Carbon Dioxide 29 22 - 32 mmol/L TXP NO LAB FOUND SCRIBED Anion Gap 8 2 - 15 mmol/L TXP NO LAB FOUND SCRIBED Urea Nitrogen (BUN) 24 6 - 25 mg/dL TXP NO LAB FOUND SCRIBED Creatinine 1.39(A) 0.60 - 1.10 mg/dL TXP NO LAB FOUND SCRIBED Glucose 112 70 - 199 mg/dL TXP NO LAB FOUND SCRIBED Calcium 8.8 8.5 - 10.3 mg/dL TXP NO LAB FOUND SCRIBED Bilirubin 1.8(A) 0.1 - 1.2 mg/dL TXP NO LAB FOUND SCRIBED Plasma Protein 6.1(A) 6.5 - 8.5 g/dL TXP NO LAB FOUND SCRIBED Albumin 3.6 3.5 - 5.0 g/dL TXP NO LAB FOUND SCRIBED Alkaline Phosphatase 73 40 - 130 Units/L TXP NO LAB FOUND SCRIBED Alanine Transaminase (ALT) 22 7 - 45 Units/L TXP NO LAB FOUND SCRIBED Aspartate Transaminase (AST) 40 10 - 45 Units/L TXP NO LAB FOUND SCRIBED eGFR 38 >60 mL/min/1.7 3 m2 TXP NO LAB FOUND Blood 07/26/2025 3:22 PM ENGINE BOSS Historical Provider LAB BLOOD ORDERABLES Ju l Result TXP NO LAB FOUND * SCAN - LABS (07/26/2025) us Provider Scanning Final Result * (ABNORMAL) POCT glucose (07/09/2025 12:16 PM ENGINE BOSS) [facility] Glucose, POC 240(H) 70 - 199 mg/dL Blood 07/09/2025 12:1 6 PM ENGINE BOSS 07/09/2025 12:16 PM ENGINE BOSS us Magnus Kovacs MD LAB POCT ORDERABLES - D EVICE Final Result Performing Organization Address [facility] Co de Phone Number [facility] [place] [place] [address] * POCT glucose (07/09/2025 7:29 AM ENGINE BOSS) [facility] Glucose, POC 106 70 - 199 mg/dL Blood 07/09/2025 7:29 AM ENGINE BOSS 07/09/2025 7:29 AM ENGINE BOSS Magnus Kovacs MD LAB POCT ORDERABLES - D EVICE Final Result Performing Organization Address [facility] Co de Phone Number [facility] [place] [place] [address] * Immature platelet fraction (07/09/2025 12:45 AM ENGINE BOSS) [facility] IPF 3.1 1.6 - 10.1 % Blood 07/09/2025 12:4 5 AM ENGINE BOSS 07/09/2025 1:28 AM ENGINE BOSS us Najma Pires MD LAB BLOOD ORDERABLES Final Result Performing Organization Address [facility] Co de Phone Number [facility] [place] [address] * (ABNORMAL) eGFR (07/09/2025 12:45 AM ENGINE BOSS) [facility] eGFR 26(L) >=60 mL/min/1. 73 m2 Comment: [...] reviewed 2021. Blood 07/09/2025 12:4 5 AM ENGINE BOSS 07/09/2025 1:22 AM ENGINE BOSS us Najma Pires MD LAB BLOOD ORDERABLES Final Result [facility] [place] [address] * (ABNORMAL) Differential, auto (07/09/2025 12:45 AM ENGINE BOSS) [facility] Neutrophil abs 1.73 1.50 - 6.50 K/cumm Imm gran abs 0.00 0.00 - 0.10 K/cumm [facility] Lymphocyte abs 0.66(L) 0.80 - 3.30 K/cumm [facility] Monocyte abs 0.49 0.20 - 0.80 K/cumm [facility] Eosinophil abs 0.32 0.00 - 0.50 K/cumm [facility] Basophil abs 0.01 0.00 - 0.10 K/cumm [facility] Neutrophil pct 53.8 % [facility] Comment: Interpretive Data Percent cell count reference ranges are not reported, since discordance with absolute values may lead to misinterpretation of CBC data. Current Interpretive Data was last revised on 2017. Imm gran pct 0.0 % [facility] Comment: Interpretive Data Percent cell count reference ranges are not reported, since discordance with absolute values may lead to misinterpretation of CBC data. Current Interpretive Data was last revised on 2017. Lymphocyte pct 20.6 % [facility] Comment: Interpretive Data Percent cell count reference ranges are not reported, since discordance with absolute values may lead to misinterpretation of CBC data. Current Interpretive Data was last revised on 2017. Monocyte pct 15.3 % [facility] Comment: Interpretive Data Percent cell count reference ranges are not reported, since discordance with absolute values may lead to misinterpretation of CBC data. Current Interpretive Data was last revised on 2017. Eosinophil pct 10.0 % [facility] Comment: Interpretive Data Percent cell count reference ranges are not reported, since discordance with absolute values may lead to misinterpretation of CBC data. Current Interpretive Data was last revised on 2017. Basophil pct 0.3 % [facility] Comment: Interpretive Data Percent cell count reference ranges are not reported, since discordance with absolute values may lead to misinterpretation of CBC data. Current Interpretive Data was last revised on 2017. Blood 07/09/2025 12:4 5 AM ENGINE BOSS 07/09/2025 1:22 AM ENGINE BOSS us Najma Pires MD LAB BLOOD ORDERABLES Final Result [facility] [place] [address] * (ABNORMAL) CBC with auto differential (07/09/2025 12:45 AM ENGINE BOSS) WBC 3.09(L) 3.80 - 9.90 K/cumm Hgb 8.1(L) 11.9 - 15.5 g/dL [facility] Hct 24.8(L) 35.6 - 45.5 % [facility] Plt 48(C) 150 - 400 K/cumm [facility] Comment:Platelet count confi rmed by additional testing. Critical platelet count threshold determined by patient location: Outpatient:<50 K/cumm , Inpatient adults:<20 K/cumm , Inpatient pediatric:<25 K/cumm, BMT service:<10 K/cumm MPV 11.7 9.1 - 12.3 fL [facility] RBC 2.98(L) 3.90 - 5.20 M/cumm [facility] MCV 83.2 81.3 - 96.4 fL [facility] MCH 27.2 27.1 - 33.3 pg [facility] MCHC 32.7 32.3 - 35.7 g/dL [facility] RDW CV 15.9(H) 11.1 - 14.9 % [facility] RDW SD 47.8 35.7 - 48.1 fL [facility] NRBC abs 0.00 0.00 - 0.01 K/cumm [facility] Blood 07/09/2025 12:4 5 AM ENGINE BOSS 07/09/2025 1:22 AM ENGINE BOSS us Najma Pires MD LAB BLOOD ORDERABLES Final Result [facility] [place] [address] * (ABNORMAL) Protime-INR (07/09/2025 12:45 AM ENGINE BOSS) PT 20.2(H) 10.2 - 13.5 sec INR 1.81(H) 0.90 - 1.20 [facility] Comment: Interpretive data Oral anticoagulant therapeutic ranges: Venous thromboembolism prophylaxis or treatment: 2.0-3.0 CARDIOLOGY Standard range: 2.0-3.0 High-intensity range: 2.5-3.5 Refer to indication-specific guidelines for appropriate target ranges for prosthetic heart valve replacement. Current interpretive data was last revised on 2019. Blood 07/09/2025 12:4 5 AM ENGINE BOSS 07/09/2025 1:23 AM ENGINE BOSS Narrative [facility] - 07/09/2025 1:50 AM ENGINE BOSS While on warfarin Stephanie Low NP LAB BLOOD ORDERABLES F inal Result Performing Organization Address [facility] [place] [address] * Type and screen (07/09/2025 12:45 AM ENGINE BOSS) Pathologist [facility] Rosemarie, indirect Negative ABO Rh A Positive [facility] Blood 07/09/2025 12:4 5 AM ENGINE BOSS 07/09/2025 1:18 AM ENGINE BOSS Narrative [facility] - 07/09/2025 2:09 AM ENGINE BOSS Has the patient had Daratumumab or Isatuximab in the past 6 months?->Unknown Najma Pires MD LAB BLOOD BANK TEST ORDERAB LES Final Result Performing Organization Address [facility] Co de Phone Number [facility] [place] [address] * Phosphorus (07/09/2025 12:45 AM ENGINE BOSS) [facility] Phosphorus, pl 3.5 2.3 - 4.5 mg/dL Blood 07/09/2025 12:4 5 AM ENGINE BOSS 07/09/2025 1:22 AM ENGINE BOSS Najma Pires MD LAB BLOOD ORDERABLES Final Result Performing Organization Address [facility] [place] [address] * (ABNORMAL) Hepatic function panel (07/09/2025 12:45 AM ENGINE BOSS) [facility] Bilirubin, total 1.5(H) 0.1 - 1.2 mg/dL Bilirubin, direct 0.7(H) 0.1 - 0.3 mg/dL [facility] Protein, pl 6.1(L) 6.5 - 8.5 g/dL [facility] Albumin 4.3 3.5 - 5.0 g/dL [facility] Alk phos 61 40 - 130 Units/L [facility] ALT 20 7 - 45 Units/L [facility] AST 32 10 - 45 Units/L [facility] Blood 07/09/2025 12:4 5 AM ENGINE BOSS 07/09/2025 1:22 AM ENGINE BOSS Najma Pires MD LAB BLOOD ORDERABLES Final Result [facility] Department [place] [address] * (ABNORMAL) Basic metabolic panel (07/09/2025 12:45 AM ENGINE BOSS) Sodium 135 135 - 145 mmol/L Potassium, pl 3.4 3.3 - 4.9 mmol/L [facility] Chloride 92(L) 97 - 110 mmol/L [facility] CO2 29 22 - 32 mmol/L [facility] Anion gap 14 2 - 15 mmol/L [facility] BUN 67(H) 6 - 25 mg/dL [facility] Creatinine 2.11(H) 0.60 - 1.10 mg/dL [facility] Glucose 124 70 - 199 mg/dL [facility] Comment: Interpretive Data Fasting glucose >/= 126 [...] 2022. Calcium 9.8 8.5 - 10.3 mg/dL [facility] Blood 07/09/2025 12:4 5 AM ENGINE BOSS 07/09/2025 1:22 AM ENGINE BOSS us Najma Pires MD LAB BLOOD ORDERABLES Final Result Performing Organization Address [facility] Co de Phone Number [facility] [place] [address] * POCT glucose (07/08/2025 10:22 PM ENGINE BOSS) Glucose, POC 147 70 - 199 mg/dL Blood 07/08/2025 10:2 2 PM ENGINE BOSS 07/08/2025 10:22 PM ENGINE BOSS Magnus Kovacs MD LAB POCT ORDERABLES - D EVICE Final Result Performing Organization Address [facility] de Phone Number [facility] [place] [address] * (ABNORMAL) POCT glucose (07/08/2025 5:30 PM ENGINE BOSS) Glucose, POC 229(H) 70 - 199 mg/dL Blood 07/08/2025 5:30 PM ENGINE BOSS 07/08/2025 5:30 PM ENGINE BOSS Mangus Kovacs MD LAB POCT ORDERABLES - D EVICE Final Result Performing Organization Address [facility] de Phone Number [facility] [place] [address] * POCT glucose (07/08/2025 12:25 PM ENGINE BOSS) Glucose, POC 193 70 - 199 mg/dL Blood 07/08/2025 12:2 5 PM ENGINE BOSS 07/08/2025 12:25 PM ENGINE BOSS Magnus Kovacs MD LAB POCT ORDERABLES - D EVICE Final Result Performing Organization Address City/[facility]/ZIP Co de Phone Number [facility] [place] [address] * POCT glucose (07/08/2025 7:59 AM ENGINE BOSS) [facility] Glucose, POC 111 70 - 199 mg/dL Blood 07/08/2025 7:59 AM ENGINE BOSS 07/08/2025 7:59 AM ENGINE BOSS Cat Steward MD LAB POCT ORDERABLES - DEVICE Final Result Performing Organization Address City/[facility] Co de Phone Number [facility] Department [place] [address] * POCT glucose (07/08/2025 1:42 AM ENGINE BOSS) [facility] Glucose, POC 145 70 - 199 mg/dL Blood 07/08/2025 1:42 AM ENGINE BOSS 07/08/2025 1:42 AM ENGINE BOSS Cat Steward MD LAB POCT ORDERABLES - DEVICE Final Result Performing Organization Address [facility] de Phone Number [facility] [place] [address] * Immature platelet fraction (07/08/2025 12:31 AM ENGINE BOSS) [facility] IPF 2.8 1.6 - 10.1 % Blood 07/08/2025 12:3 1 AM ENGINE BOSS 07/08/2025 1:51 AM ENGINE BOSS Najma Pires MD LAB BLOOD ORDERABLES Final Result Performing Organization Address [facility] Co de Phone Number [facility] [place] [address] * (ABNORMAL) eGFR (07/08/2025 12:31 AM ENGINE BOSS) [facility] eGFR 23(L) >=60 mL/min/1. 73 m2 Comment: [...] reviewed 2021. Blood 07/08/2025 12:3 1 AM ENGINE BOSS 07/08/2025 1:45 AM ENGINE BOSS us Najma Pires MD LAB BLOOD ORDERABLES Final Result [facility] [place] [address] * (ABNORMAL) Differential, auto (07/08/2025 12:31 AM ENGINE BOSS) Neutrophil abs 1.46(L) 1.50 - 6.50 K/cumm Imm gran abs 0.01 0.00 - 0.10 K/cumm [facility] Lymphocyte abs 0.67(L) 0.80 - 3.30 K/cumm [facility] Monocyte abs 0.57 0.20 - 0.80 K/cumm [facility] Eosinophil abs 0.30 0.00 - 0.50 K/cumm [facility] Basophil abs 0.02 0.00 - 0.10 K/cumm [facility] Neutrophil pct 48.2 % [facility] Comment: Interpretive Data Percent cell count reference ranges are not reported, since discordance with absolute values may lead to misinterpretation of CBC data. Current Interpretive Data was last revised on 2017. Imm gran pct 0.3 % [facility] Comment: Interpretive Data Percent cell count reference ranges are not reported, since discordance with absolute values may lead to misinterpretation of CBC data. Current Interpretive Data was last revised on 2017. Lymphocyte pct 22.1 % [facility] Comment: Interpretive Data Percent cell count reference ranges are not reported, since discordance with absolute values may lead to misinterpretation of CBC data. Current Interpretive Data was last revised on 2017. Monocyte pct 18.8 % [facility] Comment: Interpretive Data Percent cell count reference ranges are not reported, since discordance with absolute values may lead to misinterpretation of CBC data. Current Interpretive Data was last revised on 2017. Eosinophil pct 9.9 % [facility] Comment: Interpretive Data Percent cell count reference ranges are not reported, since discordance with absolute values may lead to misinterpretation of CBC data. Current Interpretive Data was last revised on 2017. Basophil pct 0.7 % [facility] Comment: Interpretive Data Percent cell count reference ranges are not reported, since discordance with absolute values may lead to misinterpretation of CBC data. Current Interpretive Data was last revised on 2017. Blood 07/08/2025 12:3 1 AM ENGINE BOSS 07/08/2025 1:45 AM ENGINE BOSS us Najma Pires MD LAB BLOOD ORDERABLES Final Result [facility] [place] [address] * (ABNORMAL) CBC with auto differential (07/08/2025 12:31 AM ENGINE BOSS) Pathologist [facility] WBC 3.03(L) 3.80 - 9.90 K/cumm Hgb 8.4(L) 11.9 - 15.5 g/dL [facility] Hct 26.1(L) 35.6 - 45.5 % [facility] Plt 48(C) 150 - 400 K/cumm [facility] Comment:Platelet count confi rmed by additional testing. Critical platelet count threshold determined by patient location: Outpatient:<50 K/cumm , Inpatient adults:<20 K/cumm , Inpatient pediatric:<25 K/cumm, BMT service:<10 K/cumm MPV 11.0 9.1 - 12.3 fL [facility] RBC 3.11(L) 3.90 - 5.20 M/cumm [facility] MCV 83.9 81.3 - 96.4 fL [facility] MCH 27.0(L) 27.1 - 33.3 pg [facility] MCHC 32.2(L) 32.3 - 35.7 g/dL [facility] RDW CV 15.9(H) 11.1 - 14.9 % [facility] RDW SD 47.8 35.7 - 48.1 fL [facility] NRBC abs 0.00 0.00 - 0.01 K/cumm [facility] Blood 07/08/2025 12:3 1 AM ENGINE BOSS 07/08/2025 1:45 AM ENGINE BOSS Najma Pires MD LAB BLOOD ORDERABLES Final Result Performing Organization Address City/[facility]/ZIP Co de Phone Number [facility] [place] [address] * Phosphorus (07/08/2025 12:31 AM ENGINE BOSS) Pathologist [facility] Phosphorus, pl 3.7 2.3 - 4.5 mg/dL Blood 07/08/2025 12:3 1 AM ENGINE BOSS 07/08/2025 1:45 AM ENGINE BOSS Najma Pires MD LAB BLOOD ORDERABLES Final Result [facility] [place] [address] * (ABNORMAL) Hepatic function panel (07/08/2025 12:31 AM ENGINE BOSS) Bilirubin, total 1.6(H) 0.1 - 1.2 mg/dL Bilirubin, direct 0.6(H) 0.1 - 0.3 mg/dL [facility] Protein, pl 6.5 6.5 - 8.5 g/dL [facility] Albumin 4.1 3.5 - 5.0 g/dL [facility] Alk phos 67 40 - 130 Units/L [facility] ALT 21 7 - 45 Units/L [facility] AST 33 10 - 45 Units/L [facility] Blood 07/08/2025 12:3 1 AM ENGINE BOSS 07/08/2025 1:45 AM ENGINE BOSS us Najma Pires MD LAB BLOOD ORDERABLES Final Result [facility] [place] [address] * (ABNORMAL) Basic metabolic panel (07/08/2025 12:31 AM ENGINE BOSS) Sodium 133(L) 135 - 145 mmol/L Potassium, pl 3.4 3.3 - 4.9 mmol/L [facility] Chloride 91(L) 97 - 110 mmol/L [facility] CO2 27 22 - 32 mmol/L [facility] Anion gap 15 2 - 15 mmol/L [facility] BUN 68(H) 6 - 25 mg/dL [facility] Creatinine 2.32(H) 0.60 - 1.10 mg/dL [facility] Glucose 147 70 - 199 mg/dL [facility] Comment: Interpretive Data Fasting glucose >/= 126 [...] 2022. Calcium 10.0 8.5 - 10.3 mg/dL [facility] Blood 07/08/2025 12:3 1 AM ENGINE BOSS 07/08/2025 1:45 AM ENGINE BOSS us Najma Pires MD LAB BLOOD ORDERABLES Final Result Performing Organization Address [facility] [place] [address] * (ABNORMAL) POCT glucose (07/07/2025 7:31 PM ENGINE BOSS) Glucose, POC 258(H) 70 - 199 mg/dL Blood 07/07/2025 7:31 PM ENGINE BOSS 07/07/2025 7:31 PM ENGINE BOSS us Cat Steward MD LAB POCT ORDERABLES - DEVICE Final Result Performing Organization Address [facility] de Phone Number [facility] [place] [address] * (ABNORMAL) POCT glucose (07/07/2025 5:28 PM ENGINE BOSS) Glucose, POC 221(H) 70 - 199 mg/dL Blood 07/07/2025 5:28 PM ENGINE BOSS 07/07/2025 5:28 PM ENGINE BOSS us Cat Steward MD LAB POCT ORDERABLES - DEVICE Final Result Performing Organization Address [facility] [place] [address] * POCT glucose (07/07/2025 1:10 PM ENGINE BOSS) Glucose, POC 197 70 - 199 mg/dL Blood 07/07/2025 1:10 PM ENGINE BOSS 07/07/2025 1:10 PM ENGINE BOSS us Cat Steward MD LAB POCT ORDERABLES - DEVICE Final Result Performing Organization Address [facility] Co de Phone Number [facility] [place] [address] * (ABNORMAL) POCT glucose (07/07/2025 11:09 AM ENGINE BOSS) Glucose, POC 310(H) 70 - 199 mg/dL Blood 07/07/2025 11:0 9 AM ENGINE BOSS 07/07/2025 11:09 AM ENGINE BOSS Cat Steward MD LAB POCT ORDERABLES - DEVICE Final Result Performing Organization Address [facility] Co de Phone Number [facility] [place] [address] * (ABNORMAL) Protime-INR (07/07/2025 9:34 AM ENGINE BOSS) PT 17.9(H) 10.2 - 13.5 sec INR 1.60(H) 0.90 - 1.20 [facility] Comment: Interpretive data Oral anticoagulant therapeutic ranges: Venous thromboembolism prophylaxis or treatment: 2.0-3.0 CARDIOLOGY Standard range: 2.0-3.0 High-intensity range: 2.5-3.5 Refer to indication-specific guidelines for appropriate target ranges for prosthetic heart valve replacement. Current interpretive data was last revised on 2019. Blood 07/07/2025 9:34 AM ENGINE BOSS 07/07/2025 10:23 AM ENGINE BOSS us Cat Steward MD LAB BLOOD ORDERABLE S Final Result Performing Organization Address [facility] Co de Phone Number CHARISSA [facility] [place] [address] * POCT glucose (07/07/2025 8:22 AM ENGINE BOSS) Glucose, POC 135 70 - 199 mg/dL Blood 07/07/2025 8:22 AM ENGINE BOSS 07/07/2025 8:22 AM ENGINE BOSS us Cat Steward MD LAB POCT ORDERABLES - DEVICE Final Result Performing Organization Address City/[facility]/ZIP Co de Phone Number [facility] [place] [address] * POCT glucose (07/07/2025 2:06 AM ENGINE BOSS) Glucose, POC 177 70 - 199 mg/dL Blood 07/07/2025 2:06 AM ENGINE BOSS 07/07/2025 2:06 AM ENGINE BOSS Cat Steward MD LAB POCT ORDERABLES - DEVICE Final Result Performing Organization Address [facility] de Phone Number CHARISSA [facility] [place] [address] * (ABNORMAL) eGFR (07/06/2025 11:48 PM ENGINE BOSS) eGFR 19(L) >=60 mL/min/1. 73 m2 Comment: [...] reviewed 2021. Blood 07/06/2025 11:4 8 PM ENGINE BOSS 07/07/2025 12:45 AM ENGINE BOSS us Najma Pires MD LAB BLOOD ORDERABLES Final Result [facility] Department [place] [address] * (ABNORMAL) Differential, auto (07/06/2025 11:48 PM ENGINE BOSS) Neutrophil abs 1.60 1.50 - 6.50 K/cumm Imm gran abs 0.00 0.00 - 0.10 K/cumm [facility] Lymphocyte abs 0.68(L) 0.80 - 3.30 K/cumm [facility] Monocyte abs 0.56 0.20 - 0.80 K/cumm [facility] Eosinophil abs 0.38 0.00 - 0.50 K/cumm [facility] Basophil abs 0.01 0.00 - 0.10 K/cumm [facility] Neutrophil pct 49.5 % [facility] Comment: Interpretive Data Percent cell count reference ranges are not reported, since discordance with absolute values may lead to misinterpretation of CBC data. Current Interpretive Data was last revised on 2017. Imm gran pct 0.0 % [facility] Comment: Interpretive Data Percent cell count reference ranges are not reported, since discordance with absolute values may lead to misinterpretation of CBC data. Current Interpretive Data was last revised on 2017. Lymphocyte pct 21.1 % [facility] Comment: Interpretive Data Percent cell count reference ranges are not reported, since discordance with absolute values may lead to misinterpretation of CBC data. Current Interpretive Data was last revised on 2017. Monocyte pct 17.3 % [facility] Comment: Interpretive Data Percent cell count reference ranges are not reported, since discordance with absolute values may lead to misinterpretation of CBC data. Current Interpretive Data was last revised on 2017. Eosinophil pct 11.8 % [facility] Comment: Interpretive Data Percent cell count reference ranges are not reported, since discordance with absolute values may lead to misinterpretation of CBC data. Current Interpretive Data was last revised on 2017. Basophil pct 0.3 % [facility] Comment: Interpretive Data Percent cell count reference ranges are not reported, since discordance with absolute values may lead to misinterpretation of CBC data. Current Interpretive Data was last revised on 2017. Blood 07/06/2025 11:4 8 PM ENGINE BOSS 07/07/2025 12:45 AM ENGINE BOSS Najma Pires MD LAB BLOOD ORDERABLES Final Result [facility] [place] [address] * (ABNORMAL) CBC with auto differential (07/06/2025 11:48 PM ENGINE BOSS) WBC 3.23(L) 3.80 - 9.90 K/cumm Hgb 8.2(L) 11.9 - 15.5 g/dL [facility] Hct 24.5(L) 35.6 - 45.5 % [facility] Plt 57(L) 150 - 400 K/cumm [facility] MPV 11.4 9.1 - 12.3 fL [facility] RBC 3.00(L) 3.90 - 5.20 M/cumm [facility] MCV 81.7 81.3 - 96.4 fL [facility] MCH 27.3 27.1 - 33.3 pg [facility] MCHC 33.5 32.3 - 35.7 g/dL [facility] RDW CV 15.5(H) 11.1 - 14.9 % [facility] RDW SD 46.4 35.7 - 48.1 fL [facility] NRBC abs 0.00 0.00 - 0.01 K/cumm [facility] Blood 07/06/2025 11:4 8 PM ENGINE BOSS 07/07/2025 12:45 AM ENGINE BOSS Najma Pires MD LAB BLOOD ORDERABLES Final Result [facility] [place] [address] * Phosphorus (07/06/2025 11:48 PM ENGINE BOSS) Pathologist [facility] Phosphorus, pl 4.1 2.3 - 4.5 mg/dL Blood 07/06/2025 11:4 8 PM ENGINE BOSS 07/07/2025 12:45 AM ENGINE BOSS Najma Pires MD LAB BLOOD ORDERABLES Final Result Performing Organization Address [facility] Co de Phone Number [facility] [place] [address] * Magnesium (07/06/2025 11:48 PM ENGINE BOSS) [facility] Magnesium 1.9 1.4 - 2.5 mg/dL Blood 07/06/2025 11:4 8 PM ENGINE BOSS 07/07/2025 12:45 AM ENGINE BOSS us Najma Pires MD LAB BLOOD ORDERABLES Final Result Performing Organization Address [facility] de Phone Number [facility] [place] [address] * (ABNORMAL) Hepatic function panel (07/06/2025 11:48 PM ENGINE BOSS) [facility] Bilirubin, total 1.7(H) 0.1 - 1.2 mg/dL Bilirubin, direct 0.6(H) 0.1 - 0.3 mg/dL [facility] Protein, pl 6.3(L) 6.5 - 8.5 g/dL [facility] Albumin 4.1 3.5 - 5.0 g/dL [facility] Alk phos 56 40 - 130 Units/L [facility] ALT 16 7 - 45 Units/L [facility] AST 30 10 - 45 Units/L [facility] Blood 07/06/2025 11:4 8 PM ENGINE BOSS 07/07/2025 12:45 AM ENGINE BOSS Najma Pires MD LAB BLOOD ORDERABLES Final Result Performing Organization Address City/[facility]/ZIP Co de Phone Number [facility] Department [place] [address] * (ABNORMAL) Basic metabolic panel (07/06/2025 11:48 PM ENGINE BOSS) Sodium 134(L) 135 - 145 mmol/L Potassium, pl 3.1(L) 3.3 - 4.9 mmol/L [facility] Chloride 92(L) 97 - 110 mmol/L [facility] CO2 28 22 - 32 mmol/L [facility] Anion gap 14 2 - 15 mmol/L [facility] BUN 69(H) 6 - 25 mg/dL [facility] Creatinine 2.75(H) 0.60 - 1.10 mg/dL [facility] Glucose 171 70 - 199 mg/dL [facility] Comment: Interpretive Data Fasting glucose >/= 126 [...] 2022. Calcium 9.8 8.5 - 10.3 mg/dL [facility] Blood 07/06/2025 11:4 8 PM ENGINE BOSS 07/07/2025 12:45 AM ENGINE BOSS Najma Pires MD LAB BLOOD ORDERABLES Final Result Performing Organization Address [facility]/ZIP Co de Phone Number CHARISSA [facility] [place] [address] * (ABNORMAL) POCT glucose (07/06/2025 9:04 PM ENGINE BOSS) Glucose, POC 221(H) 70 - 199 mg/dL Comment:Glu2: RN/ Notified Glucose comment 1 Glu2: RN/ Notified [facility] Blood 07/06/2025 9:04 PM ENGINE BOSS 07/06/2025 9:04 PM ENGINE BOSS Cat Steward MD LAB POCT ORDERABLES - DEVICE Final Result Performing Organization Address [facility] de Phone Number [facility] [place] [address] * POCT glucose (07/06/2025 4:47 PM ENGINE BOSS) Glucose, POC 140 70 - 199 mg/dL Blood 07/06/2025 4:47 PM ENGINE BOSS 07/06/2025 4:47 PM ENGINE BOSS us Cat Steward MD LAB POCT ORDERABLES - DEVICE Final Result Performing Organization Address [facility] de Phone Number [facility] [place] [address] * (ABNORMAL) POCT glucose (07/06/2025 11:38 AM ENGINE BOSS) Glucose, POC 260(H) 70 - 199 mg/dL Comment:Glu2: RN/ Notified Glucose comment 1 Glu2: RN/ Notified [facility] Blood 07/06/2025 11:3 8 AM ENGINE BOSS 07/06/2025 11:38 AM ENGINE BOSS us Cat Steward MD LAB POCT ORDERABLES - DEVICE Final Result Performing Organization Address [facility] de Phone Number [facility] [place] [address] * POCT glucose (07/06/2025 8:52 AM ENGINE BOSS) Glucose, POC 154 70 - 199 mg/dL Blood 07/06/2025 8:52 AM ENGINE BOSS 07/06/2025 8:52 AM ENGINE BOSS Cat Steward MD LAB POCT ORDERABLES - DEVICE Final Result Performing Organization Address City/State/[facility] Co de Phone Number CHARISSA [facility] [place] [address] * POCT glucose (07/06/2025 2:31 AM ENGINE BOSS) Glucose, POC 153 70 - 199 mg/dL Blood 07/06/2025 2:31 AM ENGINE BOSS 07/06/2025 2:31 AM ENGINE BOSS Cat Steward MD LAB POCT ORDERABLES - DEVICE Final Result Performing Organization Address [facility] Co de Phone Number CHARISSA [facility] [place] [address] * (ABNORMAL) eGFR (07/05/2025 10:45 PM ENGINE BOSS) eGFR 16(L) >=60 mL/min/1. 73 m2 Comment: [...] reviewed 2021. Blood 07/05/2025 10:4 5 PM ENGINE BOSS 07/06/2025 12:02 AM ENGINE BOSS us Najma Pires MD LAB BLOOD ORDERABLES Final Result [facility] Department [place] [address] * (ABNORMAL) Differential, auto (07/05/2025 10:45 PM ENGINE BOSS) Neutrophil abs 2.17 1.50 - 6.50 K/cumm Imm gran abs 0.01 0.00 - 0.10 K/cumm [facility] Lymphocyte abs 0.68(L) 0.80 - 3.30 K/cumm [facility] Monocyte abs 0.59 0.20 - 0.80 K/cumm [facility] Eosinophil abs 0.40 0.00 - 0.50 K/cumm [facility] Basophil abs 0.02 0.00 - 0.10 K/cumm [facility] Neutrophil pct 56.1 % [facility] Comment: Interpretive Data Percent cell count reference ranges are not reported, since discordance with absolute values may lead to misinterpretation of CBC data. Current Interpretive Data was last revised on 2017. Imm gran pct 0.3 % [facility] Comment: Interpretive Data Percent cell count reference ranges are not reported, since discordance with absolute values may lead to misinterpretation of CBC data. Current Interpretive Data was last revised on 2017. Lymphocyte pct 17.6 % [facility] Comment: Interpretive Data Percent cell count reference ranges are not reported, since discordance with absolute values may lead to misinterpretation of CBC data. Current Interpretive Data was last revised on 2017. Monocyte pct 15.2 % [facility] Comment: Interpretive Data Percent cell count reference ranges are not reported, since discordance with absolute values may lead to misinterpretation of CBC data. Current Interpretive Data was last revised on 2017. Eosinophil pct 10.3 % [facility] Comment: Interpretive Data Percent cell count reference ranges are not reported, since discordance with absolute values may lead to misinterpretation of CBC data. Current Interpretive Data was last revised on 2017. Basophil pct 0.5 % [facility] Comment: Interpretive Data Percent cell count reference ranges are not reported, since discordance with absolute values may lead to misinterpretation of CBC data. Current Interpretive Data was last revised on 2017. Blood 07/05/2025 10:4 5 PM ENGINE BOSS 07/06/2025 12:10 AM ENGINE BOSS Najma Pires MD LAB BLOOD ORDERABLES Final Result [facility] [place] [address] * (ABNORMAL) CBC with auto differential (07/05/2025 10:45 PM ENGINE BOSS) WBC 3.87 3.80 - 9.90 K/cumm Hgb 8.8(L) 11.9 - 15.5 g/dL [facility] Hct 25.6(L) 35.6 - 45.5 % [facility] Plt 64(L) 150 - 400 K/cumm [facility] MPV 12.2 9.1 - 12.3 fL [facility] RBC 3.16(L) 3.90 - 5.20 M/cumm [facility] MCV 81.0(L) 81.3 - 96.4 fL [facility] MCH 27.8 27.1 - 33.3 pg [facility] MCHC 34.4 32.3 - 35.7 g/dL [facility] RDW CV 15.4(H) 11.1 - 14.9 % [facility] RDW SD 45.9 35.7 - 48.1 fL [facility] NRBC abs 0.00 0.00 - 0.01 K/cumm [facility] Blood 07/05/2025 10:4 5 PM ENGINE BOSS 07/06/2025 12:10 AM ENGINE BOSS Najma Pires MD LAB BLOOD ORDERAB[place] [address] * Type and screen (07/05/2025 10:45 PM ENGINE BOSS) Pathologist [facility] ABO Rh A Positive Rosemarie, indirect Negative [facility] Blood 07/05/2025 10:4 5 PM ENGINE BOSS 07/05/2025 11:59 PM ENGINE BOSS Narrative [facility] - 07/06/2025 12:59 AM ENGINE BOSS Has the patient had Daratumumab or Isatuximab in the past 6 months?->Unknown Najma Pires MD LAB BLOOD BANK TEST ORDERAB [place] [address] * Phosphorus (07/05/2025 10:45 PM ENGINE BOSS) [facility] Phosphorus, pl 4.4 2.3 - 4.5 mg/dL Blood 07/05/2025 10:4 5 PM ENGINE BOSS 07/06/2025 12:02 AM ENGINE BOSS Najma Pires MD LAB BLOOD ORDERABLES Final Result Performing Organization Address City/[facility]/ZIP Co de Phone Number [facility] [place] [address] * Magnesium (07/05/2025 10:45 PM ENGINE BOSS) [facility] Magnesium 2.2 1.4 - 2.5 mg/dL Blood 07/05/2025 10:4 5 PM ENGINE BOSS 07/06/2025 12:02 AM ENGINE BOSS Najma Pires MD LAB BLOOD ORDERABLES Final Result Performing Organization Address City/[facility]/ZIP Co de Phone Number [facility] [place] [address] * (ABNORMAL) Hepatic function panel (07/05/2025 10:45 PM ENGINE BOSS) Pathologist [facility] Bilirubin, total 1.6(H) 0.1 - 1.2 mg/dL Bilirubin, direct 0.6(H) 0.1 - 0.3 mg/dL [facility] Protein, pl 6.5 6.5 - 8.5 g/dL [facility] Albumin 4.2 3.5 - 5.0 g/dL [facility] Alk phos 58 40 - 130 Units/L [facility] ALT 15 7 - 45 Units/L [facility] AST 28 10 - 45 Units/L [facility] Blood 07/05/2025 10:4 5 PM ENGINE BOSS 07/06/2025 12:02 AM ENGINE BOSS us Najma Pires MD LAB BLOOD ORDERABLES Final Result [facility] [place] [address] * (ABNORMAL) Basic metabolic panel (07/05/2025 10:45 PM ENGINE BOSS) Pathologist [facility] Sodium 134(L) 135 - 145 mmol/L Potassium, pl 3.3 3.3 - 4.9 mmol/L [facility] Chloride 93(L) 97 - 110 mmol/L [facility] CO2 24 22 - 32 mmol/L [facility] Anion gap 17(H) 2 - 15 mmol/L [facility] BUN 68(H) 6 - 25 mg/dL [facility] Creatinine 3.13(H) 0.60 - 1.10 mg/dL [facility] Glucose 149 70 - 199 mg/dL [facility] Comment: Interpretive Data Fasting glucose >/= 126 [...] 2022. Calcium 10.0 8.5 - 10.3 mg/dL [facility] Blood 07/05/2025 10:4 5 PM ENGINE BOSS 07/06/2025 12:02 AM ENGINE BOSS Najma Pires MD LAB BLOOD ORDERABLES Final Result Performing Organization Address City/[facility] Co de Phone Number [facility] [place] [address] * POCT glucose (07/05/2025 8:11 PM ENGINE BOSS) Glucose, POC 199 70 - 199 mg/dL Blood 07/05/2025 8:11 PM ENGINE BOSS 07/05/2025 8:11 PM ENGINE BOSS Anya Coffey MD LAB POCT ORDERABLES - D EVICE Final Result Performing Organization Address [facility] de Phone Number [facility] [place] [address] * (ABNORMAL) POCT glucose (07/05/2025 4:18 PM ENGINE BOSS) Glucose, POC 204(H) 70 - 199 mg/dL Comment:Glu2: RN/MD Notified Glucose comment 1 Glu2: RN/MD Notified [facility] Blood 07/05/2025 4:18 PM ENGINE BOSS 07/05/2025 4:18 PM ENGINE BOSS Anya Coffey MD LAB POCT ORDERABLES - D EVICE Final Result Performing Organization Address City/[facility] Co de Phone Number [facility] [place] [address] * ECG 12 lead (07/05/2025 10:54 AM ENGINE BOSS) Ventricular Rate EKG/Min 108 BPM [facility] Atrial Rate 108 BPM [facility] NH-Interval (MSEC) 156 ms [facility] QRS-Interval (MSEC) 146 ms [facility] QT-Interval (MSEC) 378 ms [facility] QTc 506 ms [facility] P [place] 90 degrees [facility] R [place] 8 degrees [facility] T [place] -27 degrees [facility] Diagnosis Sinus tachycardia Right bundle branch block T wave abnormality, consider lateral ischemia Abnormal ECG No previous ECGs available Confirmed by Angel Luis Khan MD ([id number]) on 07/06/2025 9:18:23 AM [facility] 07/05/2025 10:5 4 AM ENGINE BOSS 07/06/2025 9:18 AM ENGINE BOSS Lynne Coronel MANAGER CAREER ECG ORDERABLES Fin al Result Performing Organization Address [facility] Co de Phone Number [facility] * ECG 12 lead (07/05/2025 9:42 AM ENGINE BOSS) Ventricular Rate EKG/Min 121 BPM [facility] QRS-Interval (MSEC) 144 ms [facility] QT-Interval (MSEC) 392 ms [facility] QTc 556 ms [facility] R [place] 18 degrees [facility] T [place] -8 degrees [facility] Diagnosis Atrial fibrillation with rapid ventricular response Right bundle branch block Abnormal ECG No previous ECGs available Confirmed by DANYELLE ORTEGA M.D ([id number]) on 07/06/2025 12:48:11 AM [facility] 07/05/2025 9:42 AM ENGINE BOSS 07/06/2025 12:48 AM ENGINE BOSS Lynne Coronel MANAGER CAREER ECG ORDERABLES Fin al Result Performing Organization Address [facility] Co de Phone Number [facility] * POCT glucose (07/05/2025 7:12 AM ENGINE BOSS) Glucose, POC 141 70 - 199 mg/dL Blood 07/05/2025 7:12 AM ENGINE BOSS 07/05/2025 7:12 AM ENGINE BOSS Najma Pires MD LAB POCT ORDERABLES - DEVIC E Final Result Performing Organization Address City/[facility] Co de Phone Number [facility] [place] [address] * Critical Care (07/05/2025 6:28 AM ENGINE BOSS) Narrative Elijah Reich MD - 07/05/2025 6:28 AM ENGINE BOSS Elijah Reich MD 07/05/2025 5:21 PM Critical Care [...] plan with the patient's team and other medical/digital media sales consultant staff. This time was in addition to and separate from care provided by other practitioners on this day of service. Result [facility] Germania Wade MANAGER CAREER IN CLINIC/BEDSIDE ORDERABLES Edited Result - Final * (ABNORMAL) POCT glucose (07/04/2025 8:44 PM ENGINE BOSS) [facility] Glucose, POC 204(H) 70 - 199 mg/dL Comment:Glu2: RN/MD Notified Glucose comment 1 Glu2: RN/MD Notified [facility] Blood 07/04/2025 8:44 PM ENGINE BOSS 07/04/2025 8:44 PM ENGINE BOSS Najma Pires MD LAB POCT ORDERABLES - DEVIC E Final Result Performing Organization Address [facility] Co de Phone Number [facility] [place] [address] * Immature platelet fraction (07/04/2025 8:27 PM ENGINE BOSS) Pathologist [facility] IPF 4.7 1.6 - 10.1 % Blood 07/04/2025 8:27 PM ENGINE BOSS 07/04/2025 10:39 PM ENGINE BOSS Najma Pires MD LAB BLOOD ORDERABLES Final Result Performing Organization Address City/[facility] Co de Phone Number [facility] [place] [address] * (ABNORMAL) eGFR (07/04/2025 8:27 PM ENGINE BOSS) [facility] eGFR 10(L) >=60 mL/min/1. 73 m2 Comment: [...] last reviewed 2021. Blood 07/04/2025 8:27 PM ENGINE BOSS 07/04/2025 10:35 PM ENGINE BOSS Najma Pires MD LAB BLOOD ORDERABLES Final Result Performing Organization Address City/[facility]/ZIP Co de Phone Number [facility] [place] [address] * (ABNORMAL) Differential, auto (07/04/2025 8:27 PM ENGINE BOSS) Neutrophil abs 2.01 1.50 - 6.50 K/cumm Imm gran abs 0.04 0.00 - 0.10 K/cumm [facility] Lymphocyte abs 0.43(L) 0.80 - 3.30 K/cumm [facility] Monocyte abs 0.50 0.20 - 0.80 K/cumm [facility] Eosinophil abs 0.28 0.00 - 0.50 K/cumm [facility] Basophil abs 0.01 0.00 - 0.10 K/cumm [facility] Neutrophil pct 61.5 % [facility] Comment: Interpretive Data Percent cell count reference ranges are not reported, since discordance with absolute values may lead to misinterpretation of CBC data. Current Interpretive Data was last revised on 2017. Imm gran pct 1.2 % [facility] Comment: Interpretive Data Percent cell count reference ranges are not reported, since discordance with absolute values may lead to misinterpretation of CBC data. Current Interpretive Data was last revised on 2017. Lymphocyte pct 13.1 % [facility] Comment: Interpretive Data Percent cell count reference ranges are not reported, since discordance with absolute values may lead to misinterpretation of CBC data. Current Interpretive Data was last revised on 2017. Monocyte pct 15.3 % [facility] Comment: Interpretive Data Percent cell count reference ranges are not reported, since discordance with absolute values may lead to misinterpretation of CBC data. Current Interpretive Data was last revised on 2017. Eosinophil pct 8.6 % [facility] Comment: Interpretive Data Percent cell count reference ranges are not reported, since discordance with absolute values may lead to misinterpretation of CBC data. Current Interpretive Data was last revised on 2017. Basophil pct 0.3 % [facility] Comment: Interpretive Data Percent cell count reference ranges are not reported, since discordance with absolute values may lead to misinterpretation of CBC data. Current Interpretive Data was last revised on 2017. Blood 07/04/2025 8:27 PM ENGINE BOSS 07/04/2025 10:36 PM ENGINE BOSS us Najma Pires MD LAB BLOOD ORDERABLES Final Result [facility] [place] [address] * (ABNORMAL) CBC with auto differential (07/04/2025 8:27 PM ENGINE BOSS) WBC 3.27(L) 3.80 - 9.90 K/cumm Hgb 8.1(L) 11.9 - 15.5 g/dL [facility] Hct 24.4(L) 35.6 - 45.5 % [facility] Plt 39(C) 150 - 400 K/cumm [facility] Comment:Platelet count confi rmed by additional testing. Critical platelet count threshold determined by patient location: Outpatient:<50 K/cumm , Inpatient adults:<20 K/cumm , Inpatient pediatric:<25 K/cumm, BMT service:<10 K/cumm MPV 13.1(H) 9.1 - 12.3 fL [facility] RBC 2.94(L) 3.90 - 5.20 M/cumm [facility] MCV 83.0 81.3 - 96.4 fL [facility] MCH 27.6 27.1 - 33.3 pg [facility] MCHC 33.2 32.3 - 35.7 g/dL [facility] RDW CV 15.1(H) 11.1 - 14.9 % [facility] RDW SD 45.5 35.7 - 48.1 fL [facility] NRBC abs 0.00 0.00 - 0.01 K/cumm [facility] Blood 07/04/2025 8:27 PM ENGINE BOSS 07/04/2025 10:36 PM ENGINE BOSS us Najma Pires MD LAB BLOOD ORDERABLES Final Result [facility] [place] [address] * (ABNORMAL) Protime-INR (07/04/2025 8:27 PM ENGINE BOSS) PT 16.5(H) 10.2 - 13.5 sec INR 1.47(H) 0.90 - 1.20 [facility] Comment: Interpretive data Oral anticoagulant therapeutic ranges: Venous thromboembolism prophylaxis or treatment: 2.0-3.0 CARDIOLOGY Standard range: 2.0-3.0 High-intensity range: 2.5-3.5 Refer to indication-specific guidelines for appropriate target ranges for prosthetic heart valve replacement. Current interpretive data was last revised on 2019. Blood 07/04/2025 8:27 PM ENGINE BOSS 07/04/2025 10:50 PM ENGINE BOSS Stephanie Low NP LAB BLOOD ORDERABLES F inal Result Performing Organization Address [facility] de Phone Number [facility] [place] [address] * (ABNORMAL) Phosphorus (07/04/2025 8:27 PM ENGINE BOSS) Pathologist [facility] Phosphorus, pl 4.7(H) 2.3 - 4.5 mg/dL Blood 07/04/2025 8:27 PM ENGINE BOSS 07/04/2025 10:35 PM ENGINE BOSS Result [facility] Najma Pires MD LAB BLOOD ORDERABLES Final Result Performing Organization Address [facility] de Phone Number [facility] [place] [address] * Magnesium (07/04/2025 8:27 PM ENGINE BOSS) Magnesium 2.4 1.4 - 2.5 mg/dL Blood 07/04/2025 8:27 PM ENGINE BOSS 07/04/2025 10:35 PM ENGINE BOSS Najma Pires MD LAB BLOOD ORDERABLES Final Result Performing Organization Address [facility]/ZIP Co de Phone Number [facility] [place] [address] * (ABNORMAL) Hepatic function panel (07/04/2025 8:27 PM ENGINE BOSS) Pathologist [facility] Bilirubin, total 1.5(H) 0.1 - 1.2 mg/dL Bilirubin, direct 0.7(H) 0.1 - 0.3 mg/dL [facility] Protein, pl 6.1(L) 6.5 - 8.5 g/dL [facility] Albumin 4.2 3.5 - 5.0 g/dL [facility] Alk phos 49 40 - 130 Units/L [facility] ALT 11 7 - 45 Units/L [facility] AST 20 10 - 45 Units/L [facility] Blood 07/04/2025 8:27 PM ENGINE BOSS 07/04/2025 10:35 PM ENGINE BOSS Najma Pires MD LAB BLOOD ORDERABLES Final Result [facility] [place] [address] * (ABNORMAL) Basic metabolic panel (07/04/2025 8:27 PM ENGINE BOSS) Pathologist [facility] Sodium 133(L) 135 - 145 mmol/L Potassium, pl 3.3 3.3 - 4.9 mmol/L [facility] Chloride 96(L) 97 - 110 mmol/L [facility] CO2 22 22 - 32 mmol/L [facility] Anion gap 15 2 - 15 mmol/L [facility] BUN 66(H) 6 - 25 mg/dL [facility] Creatinine 4.56(H) 0.60 - 1.10 mg/dL [facility] Glucose 183 70 - 199 mg/dL [facility] Comment: Interpretive Data Fasting glucose >/= 126 [...] 2022. Calcium 9.3 8.5 - 10.3 mg/dL [facility] Blood 07/04/2025 8:27 PM ENGINE BOSS 07/04/2025 10:35 PM ENGINE BOSS us Najma Pires MD LAB BLOOD ORDERABLES Final Result [facility] [place] [address] * Critical Care (07/04/2025 6:07 PM ENGINE BOSS) Narrative Kyel Cash, DO - 07/04/2025 6:07 PM ENGINE BOSS Kyle Cash, DO 07/09/2025 3:20 AM Critical Care Performed [...] plan with the ICU team and other medical/digital media sales consultant staff, making frequent assessments and decisions [...] time documenting in the medical record us Kathi Torres NP IN CLINIC/BEDSIDE ORDERA BLES Final Result * POCT glucose (07/04/2025 5:25 PM ENGINE BOSS) Glucose, POC 180 70 - 199 mg/dL Blood 07/04/2025 5:25 PM ENGINE BOSS 07/04/2025 5:25 PM ENGINE BOSS Najma Pires MD LAB POCT ORDERABLES - DEVIC E Final Result Performing Organization Address [facility] de Phone Number [facility] [place] [address] * POCT glucose (07/04/2025 11:07 AM ENGINE BOSS) Glucose, POC 171 70 - 199 mg/dL Blood 07/04/2025 11:0 7 AM ENGINE BOSS 07/04/2025 11:07 AM ENGINE BOSS Najma Pires MD LAB POCT ORDERABLES - DEVIC E Final Result Performing Organization Address [facility] de Phone Number [facility] [place] [address] * POCT glucose (07/04/2025 7:14 AM ENGINE BOSS) Glucose, POC 157 70 - 199 mg/dL Blood 07/04/2025 7:14 AM ENGINE BOSS 07/04/2025 7:14 AM ENGINE BOSS Najma Pires MD LAB POCT ORDERABLES - DEVIC E Final Result Performing Organization Address [facility] [place] [address] * Critical Care (07/04/2025 6:31 AM ENGINE BOSS) Narrative Elijah Reich MD - 07/04/2025 6:31 AM ENGINE BOSS Elijah Reich MD 07/04/2025 6:15 PM Critical [...] plan with the patient's team and other medical/digital media sales consultant staff. This time was in addition to and separate from care provided by other practitioners on this day of service. I spent time reviewing and interpreting data from bedside monitors, laboratory results, and imaging, I spent time discussing the management of this critically ill patient with consultants and the medical staff and I spent time documenting in the medical record Germania Wade MANAGER CAREER IN CLINIC/BEDSIDE ORDERABLES Final Result * Immature platelet fraction (07/04/2025 3:55 AM ENGINE BOSS) Pathologist [facility] IPF 4.6 1.6 - 10.1 % Blood 07/04/2025 3:55 AM ENGINE BOSS 07/04/2025 4:09 AM ENGINE BOSS us Kathi Torres MANAGER CAREER LAB BLOOD ORDERABLES [facility] al Result [facility] Department [place] [address] * (ABNORMAL) eGFR (07/04/2025 3:55 AM ENGINE BOSS) Pathologist [facility] eGFR 9(L) >=60 mL/min/1. 73 m2 [...] last reviewed 2021. Blood 07/04/2025 3:55 AM ENGINE BOSS 07/04/2025 4:05 AM ENGINE BOSS Kathi De Guzman [facility] LAB BLOOD ORDERABLES [facility] al Result [facility] [place] [address] * (ABNORMAL) CBC without differential (07/04/2025 3:55 AM ENGINE BOSS) WBC 2.93(L) 3.80 - 9.90 K/cumm Hgb 8.1(L) 11.9 - 15.5 g/dL [facility] Hct 23.6(L) 35.6 - 45.5 % [facility] Plt 35(C) 150 - 400 K/cumm [facility] Comment:Platelet count confi rmed by additional testing. Critical platelet count threshold determined by patient location: Outpatient:<50 K/cumm , Inpatient adults:<20 K/cumm , Inpatient pediatric:<25 K/cumm, BMT service:<10 K/cumm MPV 11.3 9.1 - 12.3 fL [facility] RBC 2.89(L) 3.90 - 5.20 M/cumm [facility] MCV 81.7 81.3 - 96.4 fL [facility] MCH 28.0 27.1 - 33.3 pg [facility] MCHC 34.3 32.3 - 35.7 g/dL [facility] RDW CV 15.2(H) 11.1 - 14.9 % [facility] RDW SD 44.8 35.7 - 48.1 fL [facility] NRBC abs 0.00 0.00 - 0.01 K/cumm [facility] Blood 07/04/2025 3:55 AM ENGINE BOSS 07/04/2025 4:05 AM ENGINE BOSS [facility] LAB BLOOD ORDERABLES Fin al Result Performing Organization Address City/[facility]/ZIP Co de Phone Number [facility] [place] [address] * (ABNORMAL) Basic metabolic panel (07/04/2025 3:55 AM ENGINE BOSS) Pathologist [facility] Sodium 131(L) 135 - 145 mmol/L Potassium, pl 3.7 3.3 - 4.9 mmol/L [facility] Chloride 96(L) 97 - 110 mmol/L [facility] CO2 21(L) 22 - 32 mmol/L [facility] Anion gap 14 2 - 15 mmol/L [facility] BUN 60(H) 6 - 25 mg/dL [facility] Creatinine 5.03(H) 0.60 - 1.10 mg/dL [facility] Glucose 146 70 - 199 mg/dL [facility] Comment: Interpretive Data Fasting glucose >/= 126 [...] 2022. Calcium 9.2 8.5 - 10.3 mg/dL [facility] Blood 07/04/2025 3:55 AM ENGINE BOSS 07/04/2025 4:05 AM ENGINE BOSS [facility] MANAGER CAREER LAB BLOOD ORDERABLES Fin al Result Performing Organization Address [facility]/ZIP Co de Phone Number [facility] [place] [address] * POCT glucose (07/04/2025 2:05 AM ENGINE BOSS) Glucose, POC 165 70 - 199 mg/dL Blood 07/04/2025 2:05 AM ENGINE BOSS 07/04/2025 2:05 AM ENGINE BOSS Najma Pires MD LAB POCT ORDERABLES - DEVIC E Final Result Performing Organization Address [facility] Co de Phone Number [facility] [place] [address] * Transfuse RBC (07/03/2025 11:43 PM ENGINE BOSS) Blood Kathi Torres MANAGER CAREER BLOOD TRANSFUSION ORDERA BLES Final Result Performing Organization Address [facility] de Phone Number [facility] [place] [address] * Prepare RBC: 1 Units (07/03/2025 8:38 PM ENGINE BOSS) Product code [id number] Unit Number [id number] [facility] Product Blood Type APOS [facility] Dispense Status PRESUMED TRANSFUSED [facility] Blood 07/03/2025 8:38 PM ENGINE BOSS 07/03/2025 8:39 PM ENGINE BOSS Narrative [facility] - 07/04/2025 4:01 PM ENGINE BOSS Are special requirements needed? (All products are leukoreduced and CMV- safe)- >No Date required:-[id number] LRRBC # of [id number] Reasons:-Hgb <7 g/dL} Kathi Torres MANAGER CAREER BLOOD BANK PRODUCT ORDER RAVEN Final Result Performing Organization Address [facility] [place] [address] * (ABNORMAL) POCT glucose (07/03/2025 8:34 PM ENGINE BOSS) [facility] Glucose, POC 250(H) 70 - 199 mg/dL Blood 07/03/2025 8:34 PM ENGINE BOSS 07/03/2025 8:34 PM ENGINE BOSS Najma Pires MD LAB POCT ORDERABLES - DEVIC E Final Result Performing Organization Address [facility] Co de Phone Number [facility] [place] [address] * Immature platelet fraction (07/03/2025 7:58 PM ENGINE BOSS) [facility] IPF 3.7 1.6 - 10.1 % Blood 07/03/2025 7:58 PM ENGINE BOSS 07/03/2025 8:25 PM ENGINE BOSS Najma Pires MD LAB BLOOD ORDERABLES Final Result Performing Organization Address [facility] de Phone Number [facility] [place] [address] * (ABNORMAL) eGFR (07/03/2025 7:58 PM ENGINE BOSS) [facility] eGFR 8(L) >=60 mL/min/1. 73 m2 Comment: [...] last reviewed 2021. Blood 07/03/2025 7:58 PM ENGINE BOSS 07/03/2025 8:21 PM ENGINE BOSS us Najma Pires MD LAB BLOOD ORDERABLES Final Result [facility] [place] [address] * (ABNORMAL) Differential, auto (07/03/2025 7:58 PM ENGINE BOSS) Neutrophil abs 1.51 1.50 - 6.50 K/cumm Imm gran abs 0.01 0.00 - 0.10 K/cumm [facility] Lymphocyte abs 0.42(L) 0.80 - 3.30 K/cumm [facility] Monocyte abs 0.27 0.20 - 0.80 K/cumm [facility] Eosinophil abs 0.20 0.00 - 0.50 K/cumm [facility] Basophil abs 0.00 0.00 - 0.10 K/cumm [facility] Neutrophil pct 62.7 % [facility] Comment: Interpretive Data Percent cell count reference ranges are not reported, since discordance with absolute values may lead to misinterpretation of CBC data. Current Interpretive Data was last revised on 2017. Imm gran pct 0.4 % [facility] Comment: Interpretive Data Percent cell count reference ranges are not reported, since discordance with absolute values may lead to misinterpretation of CBC data. Current Interpretive Data was last revised on 2017. Lymphocyte pct 17.4 % [facility] Comment: Interpretive Data Percent cell count reference ranges are not reported, since discordance with absolute values may lead to misinterpretation of CBC data. Current Interpretive Data was last revised on 2017. Monocyte pct 11.2 % [facility] Comment: Interpretive Data Percent cell count reference ranges are not reported, since discordance with absolute values may lead to misinterpretation of CBC data. Current Interpretive Data was last revised on 2017. Eosinophil pct 8.3 % [facility] Comment: Interpretive Data Percent cell count reference ranges are not reported, since discordance with absolute values may lead to misinterpretation of CBC data. Current Interpretive Data was last revised on 2017. Basophil pct 0.0 % [facility] Comment: Interpretive Data Percent cell count reference ranges are not reported, since discordance with absolute values may lead to misinterpretation of CBC data. Current Interpretive Data was last revised on 2017. Blood 07/03/2025 7:58 PM ENGINE BOSS 07/03/2025 8:21 PM ENGINE BOSS us Najma Pires MD LAB BLOOD ORDERABLES Final Result [facility] [place] [address] * (ABNORMAL) CBC with auto differential (07/03/2025 7:58 PM ENGINE BOSS) WBC 2.50(L) 3.80 - 9.90 K/cumm Hgb 6.9(L) 11.9 - 15.5 g/dL [facility] Hct 20.5(L) 35.6 - 45.5 % [facility] Plt 33(C) 150 - 400 K/cumm [facility] Comment:Platelet count confi rmed by additional testing. Critical platelet count threshold determined by patient location: Outpatient:<50 K/cumm , Inpatient adults:<20 K/cumm , Inpatient pediatric:<25 K/cumm, BMT service:<10 K/cumm MPV 11.7 9.1 - 12.3 fL [facility] RBC 2.51(L) 3.90 - 5.20 M/cumm [facility] MCV 81.7 81.3 - 96.4 fL [facility] MCH 27.5 27.1 - 33.3 pg [facility] MCHC 33.7 32.3 - 35.7 g/dL [facility] RDW CV 15.2(H) 11.1 - 14.9 % [facility] RDW SD 46.4 35.7 - 48.1 fL [facility] NRBC abs 0.00 0.00 - 0.01 K/cumm [facility] Blood 07/03/2025 7:58 PM ENGINE BOSS 07/03/2025 8:21 PM ENGINE BOSS Najma Pires MD LAB BLOOD ORDERABLES Final Result Performing Organization Address [facility] de Phone Number [facility] [place] [address] * (ABNORMAL) aPTT (07/03/2025 7:58 PM ENGINE BOSS) aPTT 74(H) 26 - 38 sec Comment: Interpretive Data Heparin therapeutic range: 66.0 - 100.0 seconds. Range based on correlation with therapeutic heparin activity range of 0.3 - 0.7 Units/mL. Blood 07/03/2025 7:58 PM ENGINE BOSS 07/03/2025 8:08 PM ENGINE BOSS Narrative [facility] - 07/03/2025 8:39 PM ENGINE BOSS STAT PTT timing: - Draw 6 hours [...] ORDERABLES F inal Result Performing Organization Address [facility] Co de Phone Number [facility] [place] [address] * (ABNORMAL) Protime-INR (07/03/2025 7:58 PM ENGINE BOSS) PT 18.5(H) 10.2 - 13.5 sec INR 1.65(H) 0.90 - 1.20 [facility] Comment: Interpretive data Oral anticoagulant therapeutic ranges: Venous thromboembolism prophylaxis or treatment: 2.0-3.0 CARDIOLOGY Standard range: 2.0-3.0 High-intensity range: 2.5-3.5 Refer to indication-specific guidelines for appropriate target ranges for prosthetic heart valve replacement. Current interpretive data was last revised on 2019. Blood 07/03/2025 7:58 PM ENGINE BOSS 07/03/2025 8:08 PM ENGINE BOSS Najma Pires MD LAB BLOOD ORDERABLES Final Result Performing Organization Address City/[facility] de Phone Number [facility] [place] [address] * Phosphorus (07/03/2025 7:58 PM ENGINE BOSS) Phosphorus, pl 4.3 2.3 - 4.5 mg/dL Blood 07/03/2025 7:58 PM ENGINE BOSS 07/03/2025 8:21 PM ENGINE BOSS Najma Pires MD LAB BLOOD ORDERABLES Final Result Performing Organization Address [facility] de Phone Number [facility] [place] [address] * Magnesium (07/03/2025 7:58 PM ENGINE BOSS) Magnesium 2.5 1.4 - 2.5 mg/dL Blood 07/03/2025 7:58 PM ENGINE BOSS 07/03/2025 8:21 PM ENGINE BOSS Najma Pires MD LAB BLOOD ORDERABLES Final Result Performing Organization Address [facility] de Phone Number [facility] [place] [address] * (ABNORMAL) Ammonia (07/03/2025 7:58 PM ENGINE BOSS) Pathologist [facility] Ammonia 52(H) <=50 mcmol/L Blood 07/03/2025 7:58 PM ENGINE BOSS 07/03/2025 8:08 PM ENGINE BOSS Kathi Torres MANAGER CAREER LAB BLOOD ORDERABLES Fin al Result Performing Organization Address [facility] Co de Phone Number [facility] [place] [address] * (ABNORMAL) Hepatic function panel (07/03/2025 7:58 PM ENGINE BOSS) [facility] Bilirubin, total 1.2 0.1 - 1.2 mg/dL Bilirubin, direct 0.7(H) 0.1 - 0.3 mg/dL [facility] Protein, pl 6.0(L) 6.5 - 8.5 g/dL [facility] Albumin 4.4 3.5 - 5.0 g/dL [facility] Alk phos 40 40 - 130 Units/L [facility] ALT 12 7 - 45 Units/L [facility] AST 19 10 - 45 Units/L [facility] Blood 07/03/2025 7:58 PM ENGINE BOSS 07/03/2025 8:21 PM ENGINE BOSS Najma Pires MD LAB BLOOD ORDERABLES Final Result Performing Organization Address [facility] Co de Phone Number [facility] [place] [address] * (ABNORMAL) Basic metabolic panel (07/03/2025 7:58 PM ENGINE BOSS) [facility] Sodium 129(L) 135 - 145 mmol/L Potassium, pl 3.7 3.3 - 4.9 mmol/L [facility] Chloride 92(L) 97 - 110 mmol/L [facility] CO2 20(L) 22 - 32 mmol/L [facility] Anion gap 17(H) 2 - 15 mmol/L [facility] BUN 62(H) 6 - 25 mg/dL [facility] Creatinine 5.60(H) 0.60 - 1.10 mg/dL [facility] Glucose 195 70 - 199 mg/dL [facility] Comment: Interpretive Data Fasting glucose >/= 126 [...] 2022. Calcium 8.6 8.5 - 10.3 mg/dL [facility] Blood 07/03/2025 7:58 PM ENGINE BOSS 07/03/2025 8:21 PM ENGINE BOSS us Najma Pires MD LAB BLOOD ORDERABLES Final Result [facility] [place] [address] * Critical Care (07/03/2025 6:42 PM ENGINE BOSS) Narrative Kyle Cash, - 07/03/2025 6:42 PM ENGINE BOSS Kyle Cash, 07/09/2025 3:20 AM Critical Care Performed by: [...] plan with the ICU team and other medical/digital media sales consultant staff, making frequent assessments and decisions [...] time documenting in the medical record us Kathi Torres MANAGER CAREER IN CLINIC/BEDSIDE ORDERA BLES Final Result * XR Chest 1 View (07/03/2025 5:25 PM ENGINE BOSS) Anatomical Region Laterality Modality Body, Chest N/A Computed Radiogr aphy 07/04/2025 1:20 AM ENGINE BOSS Impressions 07/04/2025 1:20 AM ENGINE BOSS The lung volumes are small with mild bibasilar atelectasis. There is mild pulmonary edema. There is no pleural effusion or pneumothorax. The cardiomediastinal silhouette is unchanged. Electronically signed by: Taiwo Martinez M.D. Narrative 07/04/2025 1:20 AM ENGINE BOSS EXAMINATION: XR CHEST 1 VIEW COMPARISON: 06/29/2025 11:26 PM Procedure Note Taiwo Martinez MD PhD - 07/04/2025 EXAMINATION: XR CHEST 1 VIEW COMPARISON: 06/29/2025 11:26 PM IMPRESSION: The lung volumes are small with mild bibasilar atelectasis. There is mild pulmonary edema. There is no pleural effusion or pneumothorax. The cardiomediastinal silhouette is unchanged. Electronically signed by: Taiwo Martinez M.D. us Stephanie Low MANAGER CAREER IMG XR PROCEDURES Ju l Result * Critical Care (07/03/2025 3:38 PM ENGINE BOSS) Narrative Elijah Reich MD - 07/03/2025 3:38 PM ENGINE BOSS Elijah Reich MD 07/03/2025 3:41 PM Critical [...] plan with the ICU team and other medical/digital media sales consultant staff, making frequent assessments and decisions [...] Acute electrolyte derangement and Acute kidney injury us Elijah Reich MD IN CLINIC/BEDSIDE O RDERABLES Final Result * POCT glucose (07/03/2025 3:04 PM ENGINE BOSS) Glucose, POC 186 70 - 199 mg/dL Blood 07/03/2025 3:04 PM ENGINE BOSS 07/03/2025 3:04 PM ENGINE BOSS us Najma Pires MD LAB POCT ORDERABLES - DEVIC E Final Result [facility] [place] [address] * (ABNORMAL) aPTT (07/03/2025 2:05 PM ENGINE BOSS) aPTT 79(H) 26 - 38 sec Comment: Interpretive Data Heparin therapeutic range: 66.0 - 100.0 seconds. Range based on correlation with therapeutic heparin activity range of 0.3 - 0.7 Units/mL. Blood 07/03/2025 2:05 PM ENGINE BOSS 07/03/2025 2:25 PM ENGINE BOSS Narrative CHARISSA DUNNE - 07/03/2025 2:50 PM ENGINE BOSS STAT PTT timing: - Draw 6 hours [...] peripherally (not from CVC). us Stephanie Low MANAGER CAREER LAB BLOOD ORDERABLES F inal Result Performing Organization Address [facility] Co de Phone Number [facility] Department [place] [address] * (ABNORMAL) POCT glucose (07/03/2025 11:44 AM ENGINE BOSS) [facility] Glucose, POC 212(H) 70 - 199 mg/dL Comment:Glu2: RN/MD Notified Glucose comment 1 Glu2: RN/MD Notified [facility] Blood 07/03/2025 11:4 4 AM ENGINE BOSS 07/03/2025 11:44 AM ENGINE BOSS Najma Pires MD LAB POCT ORDERABLES - DEVIC E Final Result Performing Organization Address [facility] de Phone Number [facility] [place] [address] * (ABNORMAL) eGFR (07/03/2025 10:47 AM ENGINE BOSS) [facility] eGFR 9(L) >=60 mL/min/1. 73 m2 [...] reviewed 2021. Blood 07/03/2025 10:4 7 AM ENGINE BOSS 07/03/2025 11:01 AM ENGINE BOSS us Stephanie Low MANAGER CAREER LAB BLOOD ORDERABLES F inal Result [facility] [place] [address] * (ABNORMAL) Basic metabolic panel (07/03/2025 10:47 AM ENGINE BOSS) Sodium 129(L) 135 - 145 mmol/L Potassium, pl 3.8 3.3 - 4.9 mmol/L [facility] Chloride 93(L) 97 - 110 mmol/L [facility] CO2 20(L) 22 - 32 mmol/L [facility] Anion gap 16(H) 2 - 15 mmol/L [facility] BUN 61(H) 6 - 25 mg/dL [facility] Creatinine 5.19(H) 0.60 - 1.10 mg/dL [facility] Glucose 198 70 - 199 mg/dL [facility] Comment: Interpretive Data Fasting glucose >/= 126 [...] 2022. Calcium 8.7 8.5 - 10.3 mg/dL [facility] Blood 07/03/2025 10:4 7 AM ENGINE BOSS 07/03/2025 11:01 AM ENGINE BOSS us Stephanie Low MANAGER CAREER LAB BLOOD ORDERABLES F inal Result [facility] [place] [address] * Critical Care (07/03/2025 7:28 AM ENGINE BOSS) Narrative Elijah Reich MD - 07/03/2025 7:28 AM ENGINE BOSS Elijah Reich MD 07/03/2025 5:15 PM Critical [...] plan with the ICU team and other medical/digital media sales consultant staff, making frequent assessments and decisions [...] in the medical record us Germania Wade NP IN CLINIC/BEDSIDE ORDERABLES Final Result * (ABNORMAL) aPTT (07/03/2025 7:17 AM ENGINE BOSS) aPTT 64(H) 26 - 38 sec Comment: Interpretive Data Heparin therapeutic range: 66.0 - 100.0 seconds. Range based on correlation with therapeutic heparin activity range of 0.3 - 0.7 Units/mL. Blood 07/03/2025 7:17 AM ENGINE BOSS 07/03/2025 7:25 AM ENGINE BOSS Narrative [facility] - 07/03/2025 8:01 AM ENGINE BOSS STAT PTT timing: - Draw 6 hours [...] drawn peripherally (not from CVC). Stephanie Low MANAGER CAREER LAB BLOOD ORDERABLES F inal Result Performing Organization Address [facility] Co de Phone Number [facility] [place] [address] * (ABNORMAL) Protime-INR (07/03/2025 7:17 AM ENGINE BOSS) [facility] PT 18.0(H) 10.2 - 13.5 sec INR 1.61(H) 0.90 - 1.20 [facility] Comment: Interpretive data Oral anticoagulant therapeutic ranges: Venous thromboembolism prophylaxis or treatment: 2.0-3.0 CARDIOLOGY Standard range: 2.0-3.0 High-intensity range: 2.5-3.5 Refer to indication-specific guidelines for appropriate target ranges for prosthetic heart valve replacement. Current interpretive data was last revised on 2019. Blood 07/03/2025 7:17 AM ENGINE BOSS 07/03/2025 7:25 AM ENGINE BOSS Germania Wade MANAGER CAREER LAB BLOOD ORDERABL ES Final Result Performing Organization Address [facility] Co de Phone Number [facility] [place] [address] * (ABNORMAL) eGFR (07/03/2025 5:15 AM ENGINE BOSS) eGFR 8(L) >=60 mL/min/1. 73 m2 Comment: [...] last reviewed 2021. Blood 07/03/2025 5:15 AM ENGINE BOSS 07/03/2025 5:23 AM ENGINE BOSS Kathi Torres NP LAB BLOOD ORDERABLES [facility] al Result [facility] [place] [address] * (ABNORMAL) Basic metabolic panel (07/03/2025 5:15 AM ENGINE BOSS) Sodium 129(L) 135 - 145 mmol/L Potassium, pl 3.7 3.3 - 4.9 mmol/L [facility] Chloride 94(L) 97 - 110 mmol/L [facility] CO2 21(L) 22 - 32 mmol/L [facility] Anion gap 14 2 - 15 mmol/L [facility] BUN 55(H) 6 - 25 mg/dL [facility] Creatinine 5.35(H) 0.60 - 1.10 mg/dL [facility] Glucose 179 70 - 199 mg/dL [facility] Comment: Interpretive Data Fasting glucose >/= 126 [...] 2022. Calcium 8.9 8.5 - 10.3 mg/dL [facility] Blood 07/03/2025 5:15 AM ENGINE BOSS 07/03/2025 5:23 AM ENGINE BOSS Kathi Torres NP LAB BLOOD ORDERABLES Fin al Result Performing Organization Address [facility] Co de Phone Number [facility] [place] [address] * (ABNORMAL) POCT glucose (07/03/2025 2:15 AM ENGINE BOSS) Glucose, POC 231(H) 70 - 199 mg/dL Blood 07/03/2025 2:15 AM ENGINE BOSS 07/03/2025 2:15 AM ENGINE BOSS Najma Pires MD LAB POCT ORDERABLES - DEVIC E Final Result Performing Organization Address [facility] Co de Phone Number [facility] [place] [address] * US Kidney Complete (07/03/2025 2:14 AM ENGINE BOSS) Anatomical Region Laterality Modality Kidney N/A Ultrasound 07/03/2025 7:38 AM ENGINE BOSS Impressions 07/03/2025 7:58 AM ENGINE BOSS Normal kidneys within the limitations of the examination. No hydronephrosis. Stewart catheter. Dictated by: Tish Martin M.D. The radiology attending physician has personally reviewed this study, and had reviewed and/or edited this written report and agrees with it. Electronically signed by: Adilson Negro M.D. Narrative 07/03/2025 7:58 AM ENGINE BOSS EXAMINATION: COMPLETE RENAL SONOGRAM HISTORY: 64-year-old female [...] it. Electronically signed by: Adilson Negro M.D. [facility] US PROCEDURES Final Result * (ABNORMAL) aPTT (07/03/2025 12:50 AM ENGINE BOSS) aPTT 68(H) 26 - 38 sec Comment: Interpretive Data Heparin therapeutic range: 66.0 - 100.0 seconds. Range based on correlation with therapeutic heparin activity range of 0.3 - 0.7 Units/mL. Blood 07/03/2025 12:5 0 AM ENGINE BOSS 07/03/2025 12:58 AM ENGINE BOSS Narrative [facility] - 07/03/2025 1:20 AM ENGINE BOSS STAT PTT timing: - Draw 6 hours [...] ORDERABLES F inal Result Performing Organization Address City/[facility]/ZIP Co de Phone Number [facility] [place] [address] * (ABNORMAL) POCT glucose (07/02/2025 9:55 PM ENGINE BOSS) [facility] Glucose, POC 248(H) 70 - 199 mg/dL Blood 07/02/2025 9:5 5 PM ENGINE BOSS 07/02/2025 9:55 PM ENGINE BOSS Najma Pires MD LAB POCT ORDERABLES - DEVIC E Final Result Performing Organization Address [facility]/ZIP Co de Phone Number [facility] [place] [address] * (ABNORMAL) eGFR (07/02/2025 9:44 PM ENGINE BOSS) [facility] eGFR 9(L) >=60 mL/min/1. 73 m2 [...] last reviewed 2021. Blood 07/02/2025 9:44 PM ENGINE BOSS 07/02/2025 10:31 PM ENGINE BOSS us Najma Pires MD LAB BLOOD ORDERABLES Final Result [facility] [place] [address] * (ABNORMAL) Differential, auto (07/02/2025 9:44 PM ENGINE BOSS) Neutrophil abs 2.58 1.50 - 6.50 K/cumm Imm gran abs 0.01 0.00 - 0.10 K/cumm [facility] Lymphocyte abs 0.54(L) 0.80 - 3.30 K/cumm [facility] Monocyte abs 0.54 0.20 - 0.80 K/cumm [facility] Eosinophil abs 0.34 0.00 - 0.50 K/cumm [facility] Basophil abs 0.01 0.00 - 0.10 K/cumm [facility] Neutrophil pct 64.3 % [facility] Comment: Interpretive Data Percent cell count reference ranges are not reported, since discordance with absolute values may lead to misinterpretation of CBC data. Current Interpretive Data was last revised on 2017. Imm gran pct 0.2 % [facility] Comment: Interpretive Data Percent cell count reference ranges are not reported, since discordance with absolute values may lead to misinterpretation of CBC data. Current Interpretive Data was last revised on 2017. Lymphocyte pct 13.4 % [facility] Comment: Interpretive Data Percent cell count reference ranges are not reported, since discordance with absolute values may lead to misinterpretation of CBC data. Current Interpretive Data was last revised on 2017. Monocyte pct 13.4 % [facility] Comment: Interpretive Data Percent cell count reference ranges are not reported, since discordance with absolute values may lead to misinterpretation of CBC data. Current Interpretive Data was last revised on 2017. Eosinophil pct 8.5 % [facility] Comment: Interpretive Data Percent cell count reference ranges are not reported, since discordance with absolute values may lead to misinterpretation of CBC data. Current Interpretive Data was last revised on 2017. Basophil pct 0.2 % [facility] Comment: Interpretive Data Percent cell count reference ranges are not reported, since discordance with absolute values may lead to misinterpretation of CBC data. Current Interpretive Data was last revised on 2017. Blood 07/02/2025 9:44 PM ENGINE BOSS 07/02/2025 10:32 PM ENGINE BOSS us Najma Pires MD LAB BLOOD ORDERABLES Final Result [facility] [place] [address] * (ABNORMAL) CBC with auto differential (07/02/2025 9:44 PM ENGINE BOSS) WBC 4.02 3.80 - 9.90 K/cumm Hgb 8.0(L) 11.9 - 15.5 g/dL [facility] Hct 23.5(L) 35.6 - 45.5 % [facility] Plt 57(L) 150 - 400 K/cumm [facility] MPV 12.2 9.1 - 12.3 fL [facility] RBC 2.89(L) 3.90 - 5.20 M/cumm [facility] MCV 81.3 81.3 - 96.4 fL [facility] MCH 27.7 27.1 - 33.3 pg [facility] MCHC 34.0 32.3 - 35.7 g/dL [facility] RDW CV 15.2(H) 11.1 - 14.9 % [facility] RDW SD 44.9 35.7 - 48.1 fL [facility] NRBC abs 0.00 0.00 - 0.01 K/cumm [facility] Blood 07/02/2025 9:44 PM ENGINE BOSS 07/02/2025 10:32 PM ENGINE BOSS Najma Pires MD LAB BLOOD ORDERABLES Final Result Performing Organization Address [facility] Co de Phone Number [facility] [place] [address] * Type and screen (07/02/2025 9:44 PM ENGINE BOSS) ABO Rh A Positive Rosemarie, indirect Negative [facility] Blood 07/02/2025 9:44 PM ENGINE BOSS 07/02/2025 10:39 PM ENGINE BOSS Narrative [facility] - 07/02/2025 11:44 PM ENGINE BOSS Has the patient had Daratumumab or Isatuximab in the past 6 months?->Unknown Najma Pires MD LAB BLOOD BANK TEST ORDERAB LES Final Result Performing Organization Address [facility] Co de Phone Number [facility] [place] [address] * Phosphorus (07/02/2025 9:44 PM ENGINE BOSS) Phosphorus, pl 2.9 2.3 - 4.5 mg/dL Blood 07/02/2025 9:44 PM ENGINE BOSS 07/02/2025 10:31 PM ENGINE BOSS Najma Pires MD LAB BLOOD ORDERABLES Final Result Performing Organization Address [facility]/ZIP Co de Phone Number [facility] [place] [address] * (ABNORMAL) Magnesium (07/02/2025 9:44 PM ENGINE BOSS) [facility] Magnesium 2.6(H) 1.4 - 2.5 mg/dL Blood 07/02/2025 9:44 PM ENGINE BOSS 07/02/2025 10:31 PM ENGINE BOSS Najma Pires MD LAB BLOOD ORDERABLES Final Result Performing Organization Address [facility]/State/ZIP Co de Phone Number [facility] [place] [address] * (ABNORMAL) Hepatic function panel (07/02/2025 9:44 PM ENGINE BOSS) [facility] Bilirubin, total 1.4(H) 0.1 - 1.2 mg/dL Bilirubin, direct 0.7(H) 0.1 - 0.3 mg/dL [facility] Protein, pl 6.7 6.5 - 8.5 g/dL [facility] Albumin 4.6 3.5 - 5.0 g/dL [facility] Alk phos 51 40 - 130 Units/L [facility] ALT 13 7 - 45 Units/L [facility] AST 27 10 - 45 Units/L [facility] Blood 07/02/2025 9:44 PM ENGINE BOSS 07/02/2025 10:31 PM ENGINE BOSS Najma Pires MD LAB BLOOD ORDERABLES Final Result [facility] [place] [address] * (ABNORMAL) Basic metabolic panel (07/02/2025 9:44 PM ENGINE BOSS) [facility] Sodium 128(L) 135 - 145 mmol/L Potassium, pl 3.5 3.3 - 4.9 mmol/L [facility] Chloride 93(L) 97 - 110 mmol/L [facility] CO2 21(L) 22 - 32 mmol/L [facility] Anion gap 14 2 - 15 mmol/L [facility] BUN 52(H) 6 - 25 mg/dL [facility] Creatinine 5.03(H) 0.60 - 1.10 mg/dL [facility] Glucose 215(H) 70 - 199 mg/dL [facility] Comment: Interpretive Data Fasting glucose >/= 126 [...] 2022. Calcium 9.0 8.5 - 10.3 mg/dL [facility] Blood 07/02/2025 9:44 PM ENGINE BOSS 07/02/2025 10:31 PM ENGINE BOSS us Najma Pires MD LAB BLOOD ORDERABLES Final Result [facility] [place] [address] * [place] ARTL CATHJ/CANNULJ MNTR/TRANSFUSION SPX PRQ (07/02/2025 9:30 PM ENGINE BOSS) Narrative Kyle Cash DO - 07/02/2025 9:30 PM ENGINE BOSS Kyle Cash DO 07/07/2025 4:32 AM Arterial Line Insertion Date/Time: 07/02/2025 9:30 PM Performed by: Kathi Torres NP Authorized by: Kyle Cash DO [place] Protocol: RN Notified of Procedure: yes Informed consent: Risks, benefits, alternatives discussed and patient/agency service representative/guardian agrees and accepts Patient's stated name/ [...] Result * Critical Care (07/02/2025 8:18 PM ENGINE BOSS) Narrative Kyle Cash, - 07/02/2025 8:18 PM ENGINE BOSS Kyle Cash DO 07/09/2025 3:20 AM Critical [...] plan with the ICU team and other medical/digital media sales consultant staff, making frequent assessments and decisions [...] time documenting in the medical record us Kathi Torres MANAGER CAREER IN CLINIC/BEDSIDE ORDERA BLES Final Result * (ABNORMAL) POCT glucose (07/02/2025 7:08 PM ENGINE BOSS) Glucose, POC 307(H) 70 - 199 mg/dL Comment:Glu2: RN/ Notified Glucose comment 1 Glu2: RN/MD Notified [facility] Blood 07/02/2025 7:08 PM ENGINE BOSS 07/02/2025 7:08 PM ENGINE BOSS Najma Pires MD LAB POCT ORDERABLES - DEVIC E Final Result Performing Organization Address [facility] de Phone Number [facility] [place] [place] [address] * (ABNORMAL) POCT glucose (07/02/2025 7:07 PM ENGINE BOSS) Pathologist [facility] Glucose, POC 301(H) 70 - 199 mg/dL Comment:Glu2: RN/ Notified Glucose comment 1 Glu2: TYRA/ Notified [facility] Blood 07/02/2025 7:07 PM ENGINE BOSS 07/02/2025 7:07 PM ENGINE BOSS Najma Pires MD LAB POCT ORDERABLES - DEVIC E Final Result Performing Organization Address [facility] Co de Phone Number [facility] [place] [place] [address] * (ABNORMAL) aPTT (07/02/2025 5:10 PM ENGINE BOSS) Pathologist [facility] aPTT 132(H) 26 - 38 sec Comment: No clot detected in sample Repeated and verified - [id number] - 07/02/25, 5:51 PM Interpretive Data Heparin therapeutic range: 66.0 - 100.0 seconds. Range based on correlation with therapeutic heparin activity range of 0.3 - 0.7 Units/mL. Blood 07/02/2025 5:10 PM ENGINE BOSS 07/02/2025 5:31 PM ENGINE BOSS Narrative [facility] - 07/02/2025 5:51 PM ENGINE BOSS STAT PTT timing: - Draw 6 hours [...] ORDERABLES F inal Result Performing Organization Address City/[facility]/ZIP Co de Phone Number [facility] [place] [address] * (ABNORMAL) POCT glucose (07/02/2025 3:09 PM ENGINE BOSS) [facility] Glucose, POC 212(H) 70 - 199 mg/dL Blood 07/02/2025 3:09 PM ENGINE BOSS 07/02/2025 3:09 PM ENGINE BOSS Najma Pires MD LAB POCT ORDERABLES - DEVIC E Final Result [facility] [place] [address] * Immature platelet fraction (07/02/2025 2:42 PM ENGINE BOSS) [facility] IPF 4.0 1.6 - 10.1 % Blood 07/02/2025 2:42 PM ENGINE BOSS 07/02/2025 3:00 PM ENGINE BOSS Stephanie Low MANAGER CAREER LAB BLOOD ORDERABLES F inal Result [facility] [place] [address] * (ABNORMAL) CBC without differential (07/02/2025 2:42 PM ENGINE BOSS) [facility] Signature WBC 2.58(L) 3.80 - 9.90 K/cumm Hgb 7.5(L) 11.9 - 15.5 g/dL [facility] Hct 22.3(L) 35.6 - 45.5 % [facility] Plt 40(C) 150 - 400 K/cumm [facility] Comment:Platelet count confi rmed by additional testing. Critical platelet count threshold determined by patient location: Outpatient:<50 K/cumm , Inpatient adults:<20 K/cumm , Inpatient pediatric:<25 K/cumm, BMT service:<10 K/cumm MPV 12.1 9.1 - 12.3 fL [facility] RBC 2.71(L) 3.90 - 5.20 M/cumm [facility] MCV 82.3 81.3 - 96.4 fL [facility] MCH 27.7 27.1 - 33.3 pg [facility] MCHC 33.6 32.3 - 35.7 g/dL [facility] RDW CV 15.6(H) 11.1 - 14.9 % [facility] RDW SD 47.0 35.7 - 48.1 fL [facility] NRBC abs 0.00 0.00 - 0.01 K/cumm [facility] Blood 07/02/2025 2:42 PM ENGINE BOSS 07/02/2025 2:57 PM ENGINE BOSS Stephanie Low MANAGER CAREER LAB BLOOD ORDERABLES F inal Result [facility] [place] [address] * Transfuse RBC (07/02/2025 2:39 PM ENGINE BOSS) Blood Lynne Coronel NP BLOOD TRANSFUSION O RDERABLES Final Result Performing Organization Address City/[facility] Co de Phone Number [facility] [place] [address] * (ABNORMAL) POCT glucose (07/02/2025 11:03 AM ENGINE BOSS) Glucose, POC 211(H) 70 - 199 mg/dL Comment:Glu2: RN/MD Notified Glucose comment 1 Glu2: RN/MD Notified [facility] Blood 07/02/2025 11:0 3 AM ENGINE BOSS 07/02/2025 11:03 AM ENGINE BOSS Najma Pires MD LAB POCT ORDERABLES - DEVIC E Final Result Performing Organization Address [facility] Co de Phone Number [facility] [place] [address] * Urinalysis reflex to microscopic (07/02/2025 8:59 AM ENGINE BOSS) Color, ur Yellow Yellow Clarity, ur Clear Clear [facility] Specific gravity, ur 1.025 1.003 - 1.030 [facility] pH, urine 5.5 [facility] Comment: Interpretive Data U rine pH is affected by diet, medications, systemic acid-base disturbances, and renal tubular function. pH may affect urinary stone formation. For example, urine pH below 6.0 may help reduce the tendency for calcium phosphate stones and pH greater than 6.0 may reduce the tendency for uric acid stone formation. Source: [facility] [employer] Current Interpretive Data was last revised on 2017 Protein, ur ql Trace Negative [facility] Glucose, ur ql Negative Negative [facility] Ketones, ur Negative Negative [facility] Bilirubin, ur Negative Negative [facility] Blood, ur Negative Negative [facility] Urobilinogen, ur <2.0 <2.0 mg/dL [facility] Nitrite, ur Negative Negative [facility] Leukocyte esterase, ur Negative Negative [facility] UA reflex comment Reflex conditions for microscopic UA not met. [facility] Urine 07/02/2025 8:59 AM ENGINE BOSS 07/02/2025 9:20 AM ENGINE BOSS Lynne Coronel MANAGER CAREER LAB URINE ORDERABLE S Final Result Performing Organization Address [facility] Co de Phone Number [facility] [place] [address] * Urea nitrogen, urine, random (07/02/2025 8:59 AM ENGINE BOSS) Urea nitrogen, ur 309 mg/dL Comment: Interpretive Data No reference range established. Current interpretive data was last revised 2018. Urine 07/02/2025 8:59 AM ENGINE BOSS 07/02/2025 9:27 AM ENGINE BOSS Result [facility] Stephanie Low MANAGER CAREER LAB URINE ORDERABLES F inal Result Performing Organization Address [facility] Co de Phone Number [facility] [place] [address] * Sodium, urine, random (07/02/2025 8:59 AM ENGINE BOSS) Sodium, ur <20 mmol/L Comment: Repeated and Verified Interpretive Data No reference range established. Current interpretive data was last revised 2018. Urine (Urine, Clean Catch) 07/02/2025 8:59 AM ENGINE BOSS 07/02/2025 9:20 AM ENGINE BOSS Lynne Coronel MANAGER CAREER LAB URINE ORDERABLE S Final Result Performing Organization Address [facility] Co de Phone Number [facility] [place] [address] * Creatinine, urine, random (07/02/2025 8:59 AM ENGINE BOSS) Creatinine Ur 169.9 mg/dL Comment: Interpretive Data No reference range established. Current interpretive data was last revised 2018. Urine 07/02/2025 8:59 AM ENGINE BOSS 07/02/2025 9:20 AM ENGINE BOSS Lynne Natali Coronel MANAGER CAREER LAB URINE ORDERABLE S Final Result Performing Organization Address [facility] de Phone Number [facility] [place] [address] * (ABNORMAL) aPTT (07/02/2025 8:59 AM ENGINE BOSS) aPTT 49(H) 26 - 38 sec Comment: Interpretive Data Heparin therapeutic range: 66.0 - 100.0 seconds. Range based on correlation with therapeutic heparin activity range of 0.3 - 0.7 Units/mL. Blood 07/02/2025 8:59 AM ENGINE BOSS 07/02/2025 9:25 AM ENGINE BOSS Narrative [facility] - 07/02/2025 9:57 AM ENGINE BOSS Baseline prior to heparin initiation Stephanie Sernamiki Low MANAGER CAREER LAB BLOOD ORDERABLES F inal Result Performing Organization Address [facility] de Phone Number [facility] [place] [address] * (ABNORMAL) Protime-INR (07/02/2025 8:59 AM ENGINE BOSS) PT 18.7(H) 10.2 - 13.5 sec INR 1.67(H) 0.90 - 1.20 [facility] Comment: Interpretive data Oral anticoagulant therapeutic ranges: Venous thromboembolism prophylaxis or treatment: 2.0-3.0 CARDIOLOGY Standard range: 2.0-3.0 High-intensity range: 2.5-3.5 Refer to indication-specific guidelines for appropriate target ranges for prosthetic heart valve replacement. Current interpretive data was last revised on 2019. Blood 07/02/2025 8:59 AM ENGINE BOSS 07/02/2025 9:25 AM ENGINE BOSS us Najma Pires MD LAB BLOOD ORDERABLES Final Result Performing Organization Address [facility] Co de Phone Number CHARISSA [facility] [place] [address] * POCT glucose (07/02/2025 7:23 AM ENGINE BOSS) Glucose, POC 164 70 - 199 mg/dL Blood 07/02/2025 7:23 AM ENGINE BOSS 07/02/2025 7:23 AM ENGINE BOSS Result Anitha Pires MD LAB POCT ORDERABLES - DEVIC E Final Result Performing Organization Address [facility] Co de Phone Number [facility] [place] [address] * Critical Care (07/02/2025 6:15 AM ENGINE BOSS) Narrative Jonathan Bright MD - 07/02/2025 6:15 AM ENGINE BOSS Jonathan Bright MD 07/03/2025 9:07 AM Critical [...] plan with the ICU team and other medical/digital media sales consultant staff, making frequent assessments and decisions [...] or life-threatening deterioration of the following conditions: Result Anitha valencia Lynne Coronel MANAGER CAREER IN CLINIC/BEDSIDE O RDERABLES Final Result * (ABNORMAL) eGFR (07/02/2025 5:58 AM ENGINE BOSS) Pathologist [facility] eGFR 13(L) >=60 mL/min/1. 73 m2 [...] last reviewed 2021. Blood 07/02/2025 5:58 AM ENGINE BOSS 07/02/2025 6:08 AM ENGINE BOSS Kathi Torres MANAGER CAREER LAB BLOOD ORDERABLES Fin al Result [facility] Department of Laboratories [place], [place] [id number] * (ABNORMAL) CBC without differential (07/02/2025 5:58 AM ENGINE BOSS) Pathologist [facility] WBC 3.01(L) 3.80 - 9.90 K/cumm Hgb 6.9(L) 11.9 - 15.5 g/dL [facility] Hct 21.0(L) 35.6 - 45.5 % [facility] Plt 56(L) 150 - 400 K/cumm [facility] MPV 11.5 9.1 - 12.3 fL [facility] RBC 2.57(L) 3.90 - 5.20 M/cumm [facility] MCV 81.7 81.3 - 96.4 fL [facility] MCH 26.8(L) 27.1 - 33.3 pg [facility] MCHC 32.9 32.3 - 35.7 g/dL [facility] RDW CV 15.4(H) 11.1 - 14.9 % [facility] RDW SD 46.6 35.7 - 48.1 fL [facility] NRBC abs 0.00 0.00 - 0.01 K/cumm [facility] Blood 07/02/2025 5:58 AM ENGINE BOSS 07/02/2025 6:09 AM ENGINE BOSS Kathi Torres MANAGER CAREER LAB BLOOD ORDERABLES [facility] al Result [facility] Department [place] [address] * (ABNORMAL) Basic metabolic panel (07/02/2025 5:58 AM ENGINE BOSS) Sodium 127(L) 135 - 145 mmol/L Potassium, pl 3.8 3.3 - 4.9 mmol/L [facility] Chloride 91(L) 97 - 110 mmol/L [facility] CO2 23 22 - 32 mmol/L [facility] Anion gap 13 2 - 15 mmol/L [facility] BUN 48(H) 6 - 25 mg/dL [facility] Creatinine 3.78(H) 0.60 - 1.10 mg/dL [facility] Glucose 145 70 - 199 mg/dL [facility] Comment: Interpretive Data Fasting glucose >/= 126 [...] 2022. Calcium 8.6 8.5 - 10.3 mg/dL [facility] Blood 07/02/2025 5:58 AM ENGINE BOSS 07/02/2025 6:08 AM ENGINE BOSS us Kathi Torres NP LAB BLOOD ORDERABLES Fin al Result Performing Organization Address City/[facility]/ZIP Co de Phone Number [facility] [place] [address] * POCT glucose (07/02/2025 3:45 AM ENGINE BOSS) Glucose, POC 175 70 - 199 mg/dL Blood 07/02/2025 3:45 AM ENGINE BOSS 07/02/2025 3:45 AM ENGINE BOSS Najma Pires MD LAB POCT ORDERABLES - DEVIC E Final Result Performing Organization Address City/[facility] Co de Phone Number [facility] [place] [address] * (ABNORMAL) eGFR (07/01/2025 8:55 PM ENGINE BOSS) [facility] eGFR 17(L) >=60 mL/min/1. 73 m2 Comment: [...] last reviewed 2021. Blood 07/01/2025 8:55 PM ENGINE BOSS 07/01/2025 9:29 PM ENGINE BOSS us Najma Pires MD LAB BLOOD ORDERABLES Final Result [facility] Department [place] [address] * (ABNORMAL) Differential, auto (07/01/2025 8:55 PM ENGINE BOSS) Neutrophil abs 2.18 1.50 - 6.50 K/cumm Imm gran abs 0.01 0.00 - 0.10 K/cumm [facility] Lymphocyte abs 0.43(L) 0.80 - 3.30 K/cumm [facility] Monocyte abs 0.51 0.20 - 0.80 K/cumm [facility] Eosinophil abs 0.24 0.00 - 0.50 K/cumm [facility] Basophil abs 0.01 0.00 - 0.10 K/cumm [facility] Neutrophil pct 64.5 % [facility] Comment: Interpretive Data Percent cell count reference ranges are not reported, since discordance with absolute values may lead to misinterpretation of CBC data. Current Interpretive Data was last revised on 2017. Imm gran pct 0.3 % [facility] Comment: Interpretive Data Percent cell count reference ranges are not reported, since discordance with absolute values may lead to misinterpretation of CBC data. Current Interpretive Data was last revised on 2017. Lymphocyte pct 12.7 % [facility] Comment: Interpretive Data Percent cell count reference ranges are not reported, since discordance with absolute values may lead to misinterpretation of CBC data. Current Interpretive Data was last revised on 2017. Monocyte pct 15.1 % [facility] Comment: Interpretive Data Percent cell count reference ranges are not reported, since discordance with absolute values may lead to misinterpretation of CBC data. Current Interpretive Data was last revised on 2017. Eosinophil pct 7.1 % [facility] Comment: Interpretive Data Percent cell count reference ranges are not reported, since discordance with absolute values may lead to misinterpretation of CBC data. Current Interpretive Data was last revised on 2017. Basophil pct 0.3 % [facility] Comment: Interpretive Data Percent cell count reference ranges are not reported, since discordance with absolute values may lead to misinterpretation of CBC data. Current Interpretive Data was last revised on 2017. Blood 07/01/2025 8:55 PM ENGINE BOSS 07/01/2025 9:27 PM ENGINE BOSS Najma Pires MD LAB BLOOD ORDERABLES Final Result [facility] Department [place] [address] * (ABNORMAL) CBC with auto differential (07/01/2025 8:55 PM ENGINE BOSS) WBC 3.38(L) 3.80 - 9.90 K/cumm Hgb 7.0(L) 11.9 - 15.5 g/dL [facility] Hct 21.2(L) 35.6 - 45.5 % [facility] Plt 82(L) 150 - 400 K/cumm [facility] MPV 12.9(H) 9.1 - 12.3 fL [facility] RBC 2.58(L) 3.90 - 5.20 M/cumm [facility] MCV 82.2 81.3 - 96.4 fL [facility] MCH 27.1 27.1 - 33.3 pg [facility] MCHC 33.0 32.3 - 35.7 g/dL [facility] RDW CV 15.7(H) 11.1 - 14.9 % [facility] RDW SD 46.7 35.7 - 48.1 fL [facility] NRBC abs 0.00 0.00 - 0.01 K/cumm [facility] Blood 07/01/2025 8:55 PM ENGINE BOSS 07/01/2025 9:27 PM ENGINE BOSS Najma Pires MD LAB BLOOD ORDERABLES Final Result Performing Organization Address [facility] [place] [address] * (ABNORMAL) Phosphorus (07/01/2025 8:55 PM ENGINE BOSS) Pathologist [facility] Phosphorus, pl 2.0(L) 2.3 - 4.5 mg/dL Blood 07/01/2025 8:55 PM ENGINE BOSS 07/01/2025 9:29 PM ENGINE BOSS Najma Pires MD LAB BLOOD ORDERABLES Final Result Performing Organization Address [facility] de Phone Number [facility] [place] [address] * (ABNORMAL) Magnesium (07/01/2025 8:55 PM ENGINE BOSS) [facility] Magnesium 2.6(H) 1.4 - 2.5 mg/dL Blood 07/01/2025 8:55 PM ENGINE BOSS 07/01/2025 9:29 PM ENGINE BOSS Najma Pires MD LAB BLOOD ORDERABLES Final Result Performing Organization Address [facility] de Phone Number [facility] [place] [address] * Hepatic function panel (07/01/2025 8:55 PM ENGINE BOSS) Pathologist [facility] Bilirubin, total 1.0 0.1 - 1.2 mg/dL Bilirubin, direct 0.3 0.1 - 0.3 mg/dL [facility] Comment:Hemolyzed; result ma y be falsely decreased Protein, pl 6.6 6.5 - 8.5 g/dL [facility] Albumin 4.0 3.5 - 5.0 g/dL [facility] Alk phos 50 40 - 130 Units/L [facility] ALT 16 7 - 45 Units/L [facility] AST 39 10 - 45 Units/L [facility] Comment:Hemolyzed; result ma y be falsely elevated Blood 07/01/2025 8:55 PM ENGINE BOSS 07/01/2025 9:29 PM ENGINE BOSS Najma Pires MD LAB BLOOD ORDERABLES Final Result [facility] Department [place] [address] * (ABNORMAL) Basic metabolic panel (07/01/2025 8:55 PM ENGINE BOSS) Sodium 130(L) 135 - 145 mmol/L Potassium, pl 4.5 3.3 - 4.9 mmol/L [facility] Comment:Hemolyzed; Potassium value may be falsely elevated by as much as 0.3-0.5 mmol/L. Suggest redraw and reanalysis. Chloride 96(L) 97 - 110 mmol/L [facility] CO2 23 22 - 32 mmol/L [facility] Anion gap 11 2 - 15 mmol/L [facility] BUN 42(H) 6 - 25 mg/dL [facility] Creatinine 3.03(H) 0.60 - 1.10 mg/dL [facility] Glucose 146 70 - 199 mg/dL [facility] Comment: Interpretive Data Fasting glucose >/= 126 [...] 2022. Calcium 9.0 8.5 - 10.3 mg/dL [facility] Blood 07/01/2025 8:55 PM ENGINE BOSS 07/01/2025 9:29 PM ENGINE BOSS Najma Pires MD LAB BLOOD ORDERABLES Final Result Performing Organization Address City/[facility] Co de Phone Number CHARISSA [facility] [place] [address] * POCT glucose (07/01/2025 8:32 PM ENGINE BOSS) Glucose, POC 188 70 - 199 mg/dL Blood 07/01/2025 8:32 PM ENGINE BOSS 07/01/2025 8:32 PM ENGINE BOSS Najma Pires MD LAB POCT ORDERABLES - DEVIC E Final Result Performing Organization Address [facility] de Phone Number CHARISSA [facility] [place] [address] * Infection Prevention Tomasa auris PCR, surveillance Axilla/Groin (07/01/2025 7:30 PM ENGINE BOSS) [facility] Tomasa auris DNA Not Detected Not Detected [facility] Comment: Interpretive Data Testing performed by [facility] using the Becki vianca 6800 Tomasa auris assay. This assay detects DNA from Tomasa auris using Real-Time PCR. This assay is laboratory developed and is not cleared by the [facility] Food and Drug Administration. The performance characteristics have been verified by the [facility]. Axilla/Groin 07/01/2025 7:30 PM ENGINE BOSS 07/01/2025 8:32 PM ENGINE BOSS Molina Longoria MD LAB MICROBIOLOGY - GENERAL ORDER [place] Final Result Performing Organization Address [facility] Co de Phone Number CHARISSA [facility] [place] [address] [facility] * (ABNORMAL) POCT glucose (07/01/2025 5:14 PM ENGINE BOSS) Glucose, POC 208(H) 70 - 199 mg/dL Blood 07/01/2025 5:14 PM ENGINE BOSS 07/01/2025 5:14 PM ENGINE BOSS us Najma Pires MD LAB POCT ORDERABLES - DEVIC E Final Result Performing Organization Address [facility] de Phone Number [facility] [place] [address] * POCT glucose (07/01/2025 1:16 PM ENGINE BOSS) Glucose, POC 171 70 - 199 mg/dL Blood 07/01/2025 1:16 PM ENGINE BOSS 07/01/2025 1:16 PM ENGINE BOSS Najma Pires MD LAB POCT ORDERABLES - DEVIC E Final Result Performing Organization Address [facility] [place] [address] * (ABNORMAL) POCT glucose (07/01/2025 8:04 AM ENGINE BOSS) Glucose, POC 250(H) 70 - 199 mg/dL Comment:Glu2: RN/MD Notified Glucose comment 1 Glu2: RN/MD Notified [facility] Blood 07/01/2025 8:04 AM ENGINE BOSS 07/01/2025 8:04 AM ENGINE BOSS Najma Pires MD LAB POCT ORDERABLES - DEVIC E Final Result Performing Organization Address [facility] [place] [address] * Critical Care (07/01/2025 7:51 AM ENGINE BOSS) Narrative Jonathan Bright MD - 07/01/2025 7:51 AM ENGINE BOSS Jonathan Bright MD 07/02/2025 2:46 PM Critical [...] plan with the patient's team and other medical/digital media sales consultant staff. This time was in addition to and separate from care provided by other practitioners on this day of service. us Lynne Coronel NP IN CLINIC/BEDSIDE O RDERABLES Final Result * (ABNORMAL) eGFR (07/01/2025 5:16 AM ENGINE BOSS) eGFR 31(L) >=60 mL/min/1. 73 m2 Comment: [...] last reviewed 2021. Blood 07/01/2025 5:16 AM ENGINE BOSS 07/01/2025 5:28 AM ENGINE BOSS us Abril Rowland MD LAB BLOOD ORDERABLES Final Result CHARISSA [facility] [place] [address] * (ABNORMAL) Basic metabolic panel (07/01/2025 5:16 AM ENGINE BOSS) Sodium 136 135 - 145 mmol/L Potassium, pl 3.8 3.3 - 4.9 mmol/L [facility] Chloride 99 97 - 110 mmol/L [facility] CO2 24 22 - 32 mmol/L [facility] Anion gap 13 2 - 15 mmol/L [facility] BUN 41(H) 6 - 25 mg/dL [facility] Creatinine 1.82(H) 0.60 - 1.10 mg/dL [facility] Glucose 129 70 - 199 mg/dL [facility] Comment: Interpretive Data Fasting glucose >/= 126 [...] 2022. Calcium 8.9 8.5 - 10.3 mg/dL [facility] Blood 07/01/2025 5:16 AM ENGINE BOSS 07/01/2025 5:28 AM ENGINE BOSS Abril Rowland MD LAB BLOOD ORDERABLES Final Result Performing Organization Address City/[facility]/ZIP Co de Phone Number [facility] [place] [address] * POCT glucose (07/01/2025 4:02 AM ENGINE BOSS) Glucose, POC 145 70 - 199 mg/dL Blood 07/01/2025 4:02 AM ENGINE BOSS 07/01/2025 4:02 AM ENGINE BOSS Najma Pires MD LAB POCT ORDERABLES - DEVIC E Final Result Performing Organization Address City/[facility]/ZIP Co de Phone Number [facility] [place] [address] * ECG 12 lead (07/01/2025 12:17 AM ENGINE BOSS) [facility] Ventricular Rate EKG/Min 78 BPM [facility] Atrial Rate 234 BPM [facility] QRS-Interval (MSEC) 154 ms [facility] QT-Interval (MSEC) 460 ms [facility] QTc 524 ms [facility] R [place] 47 degrees [facility] T [place] 62 degrees [facility] Diagnosis Atrial flutter with variable A-V block Right bundle branch block Abnormal ECG Confirmed by Bill SOLER, [facility] ([id number]) on 07/05/2025 11:51:34 AM [facility] 07/01/2025 12:1 7 AM ENGINE BOSS 07/05/2025 11:51 AM ENGINE BOSS Lynne Coronel MANAGER CAREER ECG ORDERABLES Fin al Result Performing Organization Address [facility] Co de Phone Number [facility] * POCT glucose (07/01/2025 12:01 AM ENGINE BOSS) [facility] Glucose, POC 128 70 - 199 mg/dL Blood 07/01/2025 12:0 1 AM ENGINE BOSS 07/01/2025 12:01 AM ENGINE BOSS Najma Pires MD LAB POCT ORDERABLES - DEVIC E Final Result Performing Organization Address [facility] Co de Phone Number [facility] [place] [address] * ELECTIVE CARDIOVERSION (07/01/2025 12:00 AM ENGINE BOSS) Narrative Abril Rowland MD - 07/01/2025 12:00 AM ENGINE BOSS Abril Rowland MD 07/26/2025 9:49 AM Elective Cardioversion Date/Time: 07/01/2025 12:00 AM Performed by: Gayle Rivera MD Authorized by: Gayle Rivera MD [place] Protocol: RN Notified of Procedure: yes Informed consent: Patient/agency service representative/guardian agrees and accepts and risks, benefits, [...] monitored with continuous waveform capnography, pulse ox, rn cardiac rehab with q3min BPs. Given 10mg of etomidate to facilitate cardioversion. After adequate depth of sedation achieved performed synchronized cardioversion at 200j. Converted to NSR. Repeat blood pressure unchanged. Monitored until easily awakens to voice. No complications during procedure. Post Procedure Debrief: All guidewires, needles, sponges or other items are accounted for: yes Gayle Rivera MD IN CLINIC/BEDSIDE ORDERABLES Final Result * (ABNORMAL) eGFR (06/30/2025 9:06 PM ENGINE BOSS) eGFR 32(L) >=60 mL/min/1. 73 m2 Comment: [...] last reviewed 2021. Blood 06/30/2025 9:06 PM ENGINE BOSS 06/30/2025 9:16 PM ENGINE BOSS Vasile Bergeronyecenia MANAGER CAREER LAB BLOOD ORDERABLES Final Result Performing Organization Address [facility] de Phone Number [facility] [place] [address] * aPTT (06/30/2025 9:06 PM ENGINE BOSS) aPTT 31 26 - 38 sec Comment: Interpretive Data Heparin therapeutic range: 66.0 - 100.0 seconds. Range based on correlation with therapeutic heparin activity range of 0.3 - 0.7 Units/mL. Blood 06/30/2025 9:06 PM ENGINE BOSS 06/30/2025 9:27 PM ENGINE BOSS us Lynne Coronel MANAGER CAREER LAB BLOOD ORDERABLE S Final Result Performing Organization Address [facility] de Phone Number [facility] [place] [address] * (ABNORMAL) Protime-INR (06/30/2025 9:06 PM ENGINE BOSS) PT 17.9(H) 10.2 - 13.5 sec INR 1.60(H) 0.90 - 1.20 [facility] Comment: Interpretive data Oral anticoagulant therapeutic ranges: Venous thromboembolism prophylaxis or treatment: 2.0-3.0 CARDIOLOGY Standard range: 2.0-3.0 High-intensity range: 2.5-3.5 Refer to indication-specific guidelines for appropriate target ranges for prosthetic heart valve replacement. Current interpretive data was last revised on 2019. Blood 06/30/2025 9:06 PM ENGINE BOSS 06/30/2025 9:27 PM ENGINE BOSS us Lynne Coronel MANAGER CAREER LAB BLOOD ORDERABLE S Final Result [facility] [place] [address] * (ABNORMAL) CBC without differential (06/30/2025 9:06 PM ENGINE BOSS) [facility] WBC 3.26(L) 3.80 - 9.90 K/cumm Hgb 8.0(L) 11.9 - 15.5 g/dL [facility] Hct 25.0(L) 35.6 - 45.5 % [facility] Plt 69(L) 150 - 400 K/cumm [facility] MPV 11.1 9.1 - 12.3 fL [facility] RBC 2.98(L) 3.90 - 5.20 M/cumm [facility] MCV 83.9 81.3 - 96.4 fL [facility] MCH 26.8(L) 27.1 - 33.3 pg [facility] MCHC 32.0(L) 32.3 - 35.7 g/dL [facility] RDW CV 15.6(H) 11.1 - 14.9 % [facility] RDW SD 47.6 35.7 - 48.1 fL [facility] NRBC abs 0.00 0.00 - 0.01 K/cumm [facility] Blood 06/30/2025 9:06 PM ENGINE BOSS 06/30/2025 9:16 PM ENGINE BOSS us Vasile Ochoa MANAGER CAREER LAB BLOOD ORDERABLES Final Result [facility] [place] [address] * Phosphorus (06/30/2025 9:06 PM ENGINE BOSS) [facility] Phosphorus, pl 2.4 2.3 - 4.5 mg/dL Blood 06/30/2025 9:06 PM ENGINE BOSS 06/30/2025 9:16 PM ENGINE BOSS us Yes Perla Ochoa MANAGER CAREER LAB BLOOD ORDERABLES Final Result Performing Organization Address City/[facility] Co de Phone Number [facility] [place] [address] * (ABNORMAL) Magnesium (06/30/2025 9:06 PM ENGINE BOSS) Pathologist [facility] Magnesium 2.7(H) 1.4 - 2.5 mg/dL Blood 06/30/2025 9:06 PM ENGINE BOSS 06/30/2025 9:16 PM ENGINE BOSS us Yes Perla Ochoa MANAGER CAREER LAB BLOOD ORDERABLES Final Result Performing Organization Address [facility] Co de Phone Number [facility] [place] [address] * (ABNORMAL) Comprehensive metabolic panel (06/30/2025 9:06 PM ENGINE BOSS) [facility] Sodium 135 135 - 145 mmol/L Potassium, pl 4.0 3.3 - 4.9 mmol/L [facility] Chloride 102 97 - 110 mmol/L [facility] CO2 26 22 - 32 mmol/L [facility] Anion gap 7 2 - 15 mmol/L [facility] BUN 39(H) 6 - 25 mg/dL [facility] Creatinine 1.76(H) 0.60 - 1.10 mg/dL [facility] Glucose 96 70 - 199 mg/dL [facility] Comment: Interpretive Data Fasting glucose >/= 126 [...] 2022. Calcium 9.0 8.5 - 10.3 mg/dL [facility] Bilirubin, total 1.8(H) 0.1 - 1.2 mg/dL [facility] Protein, pl 5.9(L) 6.5 - 8.5 g/dL [facility] Albumin 3.5 3.5 - 5.0 g/dL [facility] Alk phos 45 40 - 130 Units/L [facility] ALT 13 7 - 45 Units/L [facility] AST 28 10 - 45 Units/L [facility] Blood 06/30/2025 9:06 PM ENGINE BOSS 06/30/2025 9:16 PM ENGINE BOSS Vasile Ochoa NP LAB BLOOD ORDERABLES Final Result Performing Organization Address [facility] Co de Phone Number [facility] [place] [address] * POCT glucose (06/30/2025 7:56 PM ENGINE BOSS) Glucose, POC 96 70 - 199 mg/dL Blood 06/30/2025 7:56 PM ENGINE BOSS 06/30/2025 7:56 PM ENGINE BOSS Najma Pires MD LAB POCT ORDERABLES - DEVIC E Final Result Performing Organization Address City/[facility]/ZIP Co de Phone Number [facility] [place] [address] * Critical Care (06/30/2025 6:23 PM ENGINE BOSS) Narrative Abril Rowland MD - 06/30/2025 6:23 PM ENGINE BOSS Abril Rowland MD 07/26/2025 9:49 AM Critical [...] plan with the ICU team and other medical/digital media sales consultant staff, making frequent assessments and decisions [...] * ECG 12 lead (06/30/2025 6:21 PM ENGINE BOSS) [facility] Ventricular Rate EKG/Min 90 BPM [facility] Atrial Rate 270 BPM [facility] QRS-Interval (MSEC) 174 ms [facility] QT-Interval (MSEC) 430 ms [facility] QTc 526 ms [facility] R [place] 53 degrees [facility] T [place] 2 degrees [facility] Diagnosis Atrial flutter with variable A-V block with premature ventricular or aberrantly conducted complexes Right bundle branch block Abnormal ECG Confirmed by Angel Luis Khan MD ([id number]) on 07/05/2025 11:49:06 AM [facility] 06/30/2025 6:21 PM ENGINE BOSS 07/05/2025 11:49 AM ENGINE BOSS us Lynne Coronel NP ECG ORDERABLES Fin al Result [facility] * POCT glucose (06/30/2025 6:13 PM ENGINE BOSS) [facility] Signature Glucose, POC 81 70 - 199 mg/dL Blood 06/30/2025 6:13 PM ENGINE BOSS 06/30/2025 6:13 PM ENGINE BOSS us Molina Dsouza MD LAB POCT ORDERABLE S - DEVICE Final Result Performing Organization Address [facility] Co de Phone Number [facility] [place] [address] * (ABNORMAL) eGFR (06/30/2025 4:58 PM ENGINE BOSS) Pathologist [facility] eGFR 31(L) >=60 mL/min/1. 73 m2 [...] last reviewed 2021. Blood 06/30/2025 4:58 PM ENGINE BOSS 06/30/2025 5:11 PM ENGINE BOSS us Najma Pires MD LAB BLOOD ORDERABLES Final Result Performing Organization Address [facility]/ZIP Co de Phone Number [facility] [place] [address] * (ABNORMAL) Differential, auto (06/30/2025 4:58 PM ENGINE BOSS) Neutrophil abs 2.12 1.50 - 6.50 K/cumm Imm gran abs 0.02 0.00 - 0.10 K/cumm [facility] Lymphocyte abs 0.53(L) 0.80 - 3.30 K/cumm [facility] Monocyte abs 0.42 0.20 - 0.80 K/cumm [facility] Eosinophil abs 0.28 0.00 - 0.50 K/cumm [facility] Basophil abs 0.02 0.00 - 0.10 K/cumm [facility] Neutrophil pct 62.5 % [facility] Comment: Interpretive Data Percent cell count reference ranges are not reported, since discordance with absolute values may lead to misinterpretation of CBC data. Current Interpretive Data was last revised on 2017. Imm gran pct 0.6 % [facility] Comment: Interpretive Data Percent cell count reference ranges are not reported, since discordance with absolute values may lead to misinterpretation of CBC data. Current Interpretive Data was last revised on 2017. Lymphocyte pct 15.6 % [facility] Comment: Interpretive Data Percent cell count reference ranges are not reported, since discordance with absolute values may lead to misinterpretation of CBC data. Current Interpretive Data was last revised on 2017. Monocyte pct 12.4 % [facility] Comment: Interpretive Data Percent cell count reference ranges are not reported, since discordance with absolute values may lead to misinterpretation of CBC data. Current Interpretive Data was last revised on 2017. Eosinophil pct 8.3 % [facility] Comment: Interpretive Data Percent cell count reference ranges are not reported, since discordance with absolute values may lead to misinterpretation of CBC data. Current Interpretive Data was last revised on 2017. Basophil pct 0.6 % [facility] Comment: Interpretive Data Percent cell count reference ranges are not reported, since discordance with absolute values may lead to misinterpretation of CBC data. Current Interpretive Data was last revised on 2017. Blood 06/30/2025 4:58 PM ENGINE BOSS 06/30/2025 5:11 PM ENGINE BOSS us Najma Pires MD LAB BLOOD ORDERABLES Final Result [facility] [place] [address] * (ABNORMAL) CBC with auto differential (06/30/2025 4:58 PM ENGINE BOSS) [facility] WBC 3.39(L) 3.80 - 9.90 K/cumm Hgb 9.0(L) 11.9 - 15.5 g/dL [facility] Hct 28.2(L) 35.6 - 45.5 % [facility] Plt 74(L) 150 - 400 K/cumm [facility] MPV 11.5 9.1 - 12.3 fL [facility] RBC 3.39(L) 3.90 - 5.20 M/cumm [facility] MCV 83.2 81.3 - 96.4 fL [facility] MCH 26.5(L) 27.1 - 33.3 pg [facility] MCHC 31.9(L) 32.3 - 35.7 g/dL [facility] RDW CV 15.6(H) 11.1 - 14.9 % [facility] RDW SD 46.6 35.7 - 48.1 fL [facility] NRBC abs 0.00 0.00 - 0.01 K/cumm [facility] Blood 06/30/2025 4:58 PM ENGINE BOSS 06/30/2025 5:11 PM ENGINE BOSS Najma Pires MD LAB BLOOD ORDERABLES Final Result Performing Organization Address City/[facility]/ZIP Co de Phone Number [facility] [place] [address] * Phosphorus (06/30/2025 4:58 PM ENGINE BOSS) Pathologist [facility] Phosphorus, pl 2.4 2.3 - 4.5 mg/dL Blood 06/30/2025 4:58 PM ENGINE BOSS 06/30/2025 5:11 PM ENGINE BOSS Najma Pires MD LAB BLOOD ORDERABLES Final Result [facility] [place] [address] * (ABNORMAL) Magnesium (06/30/2025 4:58 PM ENGINE BOSS) [facility] Magnesium 2.7(H) 1.4 - 2.5 mg/dL Blood 06/30/2025 4:58 PM ENGINE BOSS 06/30/2025 5:11 PM ENGINE BOSS Najma Pires MD LAB BLOOD ORDERABLES Final Result [facility] [place] [address] * (ABNORMAL) Hepatic function panel (06/30/2025 4:58 PM ENGINE BOSS) [facility] Bilirubin, total 2.1(H) 0.1 - 1.2 mg/dL Bilirubin, direct 0.9(H) 0.1 - 0.3 mg/dL [facility] Protein, pl 6.6 6.5 - 8.5 g/dL [facility] Albumin 4.2 3.5 - 5.0 g/dL [facility] Alk phos 48 40 - 130 Units/L [facility] ALT 13 7 - 45 Units/L [facility] AST 26 10 - 45 Units/L [facility] Blood 06/30/2025 4:58 PM ENGINE BOSS 06/30/2025 5:11 PM ENGINE BOSS Najma Pires MD LAB BLOOD ORDERABLES Final Result [facility] [place] [address] * (ABNORMAL) Basic metabolic panel (06/30/2025 4:58 PM ENGINE BOSS) [facility] Sodium 132(L) 135 - 145 mmol/L Potassium, pl 3.1(L) 3.3 - 4.9 mmol/L [facility] Chloride 93(L) 97 - 110 mmol/L [facility] CO2 25 22 - 32 mmol/L [facility] Anion gap 14 2 - 15 mmol/L [facility] BUN 41(H) 6 - 25 mg/dL [facility] Creatinine 1.80(H) 0.60 - 1.10 mg/dL [facility] Glucose 82 70 - 199 mg/dL [facility] Comment: Interpretive Data Fasting glucose >/= 126 [...] 2022. Calcium 9.2 8.5 - 10.3 mg/dL [facility] Blood 06/30/2025 4:58 PM ENGINE BOSS 06/30/2025 5:11 PM ENGINE BOSS us Najma Pires MD LAB BLOOD ORDERABLES Final Result [facility] [place] [address] * (ABNORMAL) POC Blood Gas and Chemistries, Arterial - (06/30/2025 4:57 PM ENGINE BOSS) Na, POC 133(L) 135 - 145 mmol/L K POC 2.9(L) 3.3 - 4.9 mmol/L [facility] Comment: Interpretive Data Not all point of care methods assess for hemolysis. Confirm with instrument and retest K+ if not consistent with clinical signs and symptoms. Current Interpretive Data was last revised on 2023. Glucose, POC 89 70 - 199 mg/dL [facility] Hct, POC 29.0(L) 36.3 - 45.3 % [facility] Total Hb, POC 9.8(L) 11.9 - 15.5 g/dL [facility] Blood 06/30/2025 4:57 PM ENGINE BOSS 06/30/2025 4:57 PM ENGINE BOSS Molina Dsouza MD LAB POCT ORDERABLE S - DEVICE Final Result Performing Organization Address [facility] de Phone Number [facility] [place] [address] * POCT glucose (06/30/2025 4:31 PM ENGINE BOSS) Glucose, POC 88 70 - 199 mg/dL Blood 06/30/2025 4:31 PM ENGINE BOSS 06/30/2025 4:31 PM ENGINE BOSS Molina Dsouza MD LAB POCT ORDERABLE S - DEVICE Final Result Performing Organization Address [facility] de Phone Number [facility] [place] [address] * HLA Donor Specific Antibody Report (06/30/2025 4:15 PM ENGINE BOSS) us Provider Scanning LAB BLOOD ORDERABLES Final Res ult * CT Heart Morphology W Contrast (06/30/2025 3:01 PM ENGINE BOSS) Anatomical Region Laterality Modality Chest N/A Computed Tomogra phy 06/30/2025 3:20 PM ENGINE BOSS Impressions 06/30/2025 4:51 PM ENGINE BOSS Left atrial enlargement without thrombus in the [...] Marnie Shin M.D. Narrative 06/30/2025 4:51 PM ENGINE BOSS EXAMINATION: CTA THORACIC AORTA AND HEART MORPHOLOGY [...] it. Electronically signed by: Marnie Shin M.D. us Molina Dsouza MD IMG CT PROCEDURES Final Result * TONE Add-On For OR (06/30/2025 2:10 PM ENGINE BOSS) [facility] BSA 2.22 m2 [facility] PROSOLV_CARDIORE PORT_CONS SCIMAGE Narrative [facility] PROSOLV_CARDIOREPORT_CONS SCIMAGE - 06/30/2025 2:10 PM ENGINE BOSS Procedure Auto Finalized by Rule: BW CV TONE DURING CASE OR Please see the Anesthesiologist's Procedure Note for the results. us Carter Ortiz MD CV ECHO PROCEDURES Final Resul t Performing Organization Address [facility] Co de Phone Number [facility] PROSOLV_CARDIOREPORT_CONS SCIMAGE * POCT glucose (06/30/2025 2:02 PM ENGINE BOSS) [facility] Glucose, POC 86 70 - 199 mg/dL Blood 06/30/2025 2:02 PM ENGINE BOSS 06/30/2025 2:02 PM ENGINE BOSS Molina Dsouza MD LAB POCT ORDERABLE S - DEVICE Final Result Performing Organization Address City/[facility] Co de Phone Number [facility] [place] [address] * Prepare RBC: 8 Units (06/30/2025 1:56 PM ENGINE BOSS) [facility] Product code G3823I70 Unit Number [id number] [facility] Product Blood Type APOS [facility] Dispense Status RETURNED [facility] Product code [id number] [facility] Unit Number [id number] [facility] Product Blood Type APOS [facility] Dispense Status RETURNED [facility] Product code [id number] [facility] Unit Number [id number] [facility] Product Blood Type APOS [facility] Dispense Status RETURNED [facility] Product code [id number] [facility] Unit Number [id number] [facility] Product Blood Type APOS [facility] Dispense Status RETURNED [facility] Product code [id number] [facility] Unit Number [id number] [facility] Product Blood Type APOS [facility] Dispense Status RETURNED [facility] Product code L9892I95 [facility] Unit Number [id number] [facility] Product Blood Type APOS [facility] Dispense Status RETURNED [facility] Product code [id number] [facility] Unit Number [id number] [facility] Product Blood Type APOS [facility] Dispense Status PRESUMED TRANSFUSED [facility] Product code [id number] [facility] Unit Number [id number] [facility] Product Blood Type APOS [facility] Dispense Status RETURNED [facility] Blood 06/30/2025 1:56 PM ENGINE BOSS 06/30/2025 1:55 PM ENGINE BOSS Narrative [facility] - 07/03/2025 9:06 PM ENGINE BOSS Are special requirements needed? (All products are leukoreduced and CMV- safe)- >No Date required:-[id number] LRRBC # of [id number] Reasons:-Intra-op transfusion} us Ragini Johnson MD BLOOD BANK PRODUCT ORDERABLES Fi nal Result [facility] Department [place] [address] * TRANSTHORACIC ECHO (TTE) COMPLETE W DOPPLER/CF W CONTRAST (06/30/2025 1:28 PM ENGINE BOSS) EF Mod BP 75 % CONS SCIMAGE Anatomical Region Laterality Modality Ultrasound 06/30/2025 12:4 3 PM ENGINE BOSS Narrative 06/30/2025 1:47 PM ENGINE BOSS [facility] [place] [address] Transthoracic Echocardiographic Report Patient Name: NAEL CARDOZA J : 1960 (64y 6m) Sex: F Study Date: 06/30/2025 12:43:10 PM Ht(Inch): 67 Wt(Lb): 231.04 BSA: 2.15 [employer]: Cesar Judd, [facility], [address], [facility] Location: [id number] Order Provider: MOLINA DSOUZA Heart Rate: 132 [...] By: Ellis Rosa MD 06/30/2025 1:46:00 PM ENGINE BOSS Procedure Note Ellis Rosa MD - 06/30/2025 [facility] [place] [place] [address] Transthoracic Echocardiographic Report Patient Name: NAEL CARDOZA J : 1960 (64y 6m) Sex: F Study Date: 06/30/2025 12:43:10 PM Ht(Inch): 67 Wt(Lb): 231.04 BSA: 2.15 [employer]: Cesar Judd, [employer], [address], [facility] Location: [id number] OrderProvider: MOLINA DSOUZA Heart Rate: 132 BMI: [...] cm [ 1.7 - 5.0 ] RA Ovuhmw23 ml RA Volume Index23 ml/m2 IVC Diam2.0 cm IVC Collapse 20.4 % AoR Diam 2D 3.1 cm [ 2.7 - 3.3 ] Ao Root Index 1.4 cm/m2 [ 1.0 - 2.0 ] Asc Ao Diam 2D2.8 cm Asc Ao Index1.3 cm/m2 Electronically Signed By: Ellis Rosa MD 06/30/2025 1:46:00 PM ENGINE BOSS us Molina Dsouza MD CV ECHO PROCEDURES Final Result * POCT glucose (06/30/2025 11:53 AM ENGINE BOSS) [facility] Glucose, POC 89 70 - 199 mg/dL Blood 06/30/2025 11:5 3 AM ENGINE BOSS 06/30/2025 11:53 AM ENGINE BOSS us Molina Dsouza MD LAB POCT ORDERABLE S - DEVICE Final Result Performing Organization Address [facility] de Phone Number [facility] [place] [address] * POCT glucose (06/30/2025 7:57 AM ENGINE BOSS) Glucose, POC 94 70 - 199 mg/dL Blood 06/30/2025 7:57 AM ENGINE BOSS 06/30/2025 7:57 AM ENGINE BOSS us Molina Dsouza MD LAB POCT ORDERABLE S - DEVICE Final Result Performing Organization Address [facility] de Phone Number [facility] [place] [address] * HLA Antibody Screen by PRA or SAB per Schedule (Class I and Class II) (06/30/2025 1:40 AM ENGINE BOSS) Blood 06/30/2025 1:40 AM ENGINE BOSS Narrative [facility] - ENGINE BOSS Sample received in lab. Single Antigen Antibody Screen ordered. us Molina Dsouza MD LAB BLOOD ORDERABL ES Final Result Performing Organization Address [facility] de Phone Number [facility] * HLA Antibody Screen - SAB (Class I and Class II) (06/30/2025 1:40 AM ENGINE BOSS) Class I Treatment EDTA [facility] Class I [...] Low Risk DR9 [facility] 06/30/2025 1:40 AM ENGINE BOSS 06/30/2025 4:08 PM ENGINE BOSS Narrative [facility] - 06/30/2025 4:08 PM ENGINE BOSS Single-antigen HLA antibody screen is performed on serum samples using a method developed and validated by the [facility] HLA laboratory based on an FDA-approved IVD kit ([employer] Single-Antigen, [employer], [place], [place]). All patient serum samples are pretreated with EDTA before the screen to prevent complement interference. Additional serum treatments, such as adsorption and DTT treatment, may be performed as indicated. Interpretive comments: Low risk: MFI [id number]. Moderate risk: MFI [id number]. Increased risk: MFI >/= 5000. The presence [...] antigens to avoid. Testing performed at the [facility], [facility] [address], [address]th floor, [facility], [place], [address]. CLIA # [id number]. Rani Smith, Ph.D., Application Packaging Specialist, HLA Laboratory Aurelio Palafox M.D., Ph.D., Creative Project Manager, [facility] Laboratory Norma Talamantes, Ph.D., ROSAURA Creative Project Manager, [facility] Current methodology and interpretive comments last revised on 09/06/2022. Molina Dsouza MD LAB BLOOD ORDERABL ES Final Result [facility] * COVID-19 Coronavirus RNA Nasopharyngeal (06/30/2025 12:43 AM ENGINE BOSS) COVID-19 RNA Negative Negative [facility] Nasopharyngeal 06/30/2025 12 :43 AM ENGINE BOSS 06/30/2025 1:29 AM ENGINE BOSS Narrative [facility] - 06/30/2025 2:35 AM ENGINE BOSS Is the patient experiencing any symptoms consistent with COVID (eg. Fever, cough, shortness of breath)?->No What is the reason for testing?->Screening prior to urgent surgery, procedure, delivery, transplant, immune suppressive therapy Interpretive data Testing performed by [facility] ([phone]). This test is performed using the [employer] Xpert Xpress CoV-2 plus assay. This is a real-time RT-PCR test intended for the qualitative detection of nucleic acid from the SARS-CoV-2. This assay has been cleared by the [place] Food and Drug administration. The performance characteristics have been verified by the [facility]. Results must be considered in the clinical context, and a negative result does not rule out infection. Interpretive data last revised 2024. Interpretive data Testing performed by [facility] ([phone]). This test is performed using the [employer] Xpert Xpress CoV-2 plus assay. This is a real-time RT-PCR test intended for the qualitative detection of nucleic acid from the SARS-CoV-2. This assay has been cleared by the [place] Food and Drug administration. The performance characteristics have been verified by the [facility]. Results must be considered in the clinical context, and a negative result does not rule out infection. Interpretive data last revised 2024. us Molina Dsouza MD LAB MICROBIOLOGY - GENERAL ORDERABLES Final Result Performing Organization Address [facility] de Phone Number [facility] [place] [address] BJ * (ABNORMAL) Sepsis Lactate w/ Reflex (06/30/2025 12:43 AM ENGINE BOSS) Sepsis Lactate 2.6(H) 0.7 - 2.0 mmol/L Blood 06/30/2025 12:4 3 AM ENGINE BOSS 06/30/2025 1:26 AM ENGINE BOSS us Najma Pires MD LAB BLOOD ORDERABLES Final Result Performing Organization Address [facility] de Phone Number [facility] [place] [address] * Collection Task for HLA Antibody Screen (06/30/2025 12:43 AM ENGINE BOSS) HLA Antibody Screen by PRA Received Blood 06/30/2025 12:4 3 AM ENGINE BOSS 06/30/2025 8:36 AM ENGINE BOSS us Molina Dsouza MD LAB BLOOD ORDERABL ES Final Result Performing Organization Address [facility] de Phone Number [facility] [place] [address] * Collection Task for HLA Antibody Screen (06/30/2025 12:43 AM ENGINE BOSS) HLA Antibody Screen by PRA Received Blood 06/30/2025 12:4 3 AM ENGINE BOSS 06/30/2025 8:36 AM ENGINE BOSS us Molina Dsouza MD LAB BLOOD ORDERABL ES Final Result Performing Organization Address [facility] de Phone Number [facility] [place] [address] * (ABNORMAL) eGFR (06/30/2025 12:43 AM ENGINE BOSS) Pathologist [facility] eGFR 23(L) >=60 mL/min/1. 73 m2 [...] reviewed 2021. Blood 06/30/2025 12:4 3 AM ENGINE BOSS 06/30/2025 1:31 AM ENGINE BOSS Molina Dsouza MD LAB BLOOD ORDERABL ES Final Result Performing Organization Address [facility] [facility] de Phone Number [facility] [place] [address] * (ABNORMAL) Differential, auto (06/30/2025 12:43 AM ENGINE BOSS) Pathologist [facility] Neutrophil abs 3.89 1.50 - 6.50 K/cumm Imm gran abs 0.03 0.00 - 0.10 K/cumm [facility] Lymphocyte abs 1.02 0.80 - 3.30 K/cumm [facility] Monocyte abs 0.62 0.20 - 0.80 K/cumm [facility] Eosinophil abs 0.61(H) 0.00 - 0.50 K/cumm [facility] Basophil abs 0.04 0.00 - 0.10 K/cumm [facility] Neutrophil pct 62.7 % [facility] Comment: Interpretive Data Percent cell count reference ranges are not reported, since discordance with absolute values may lead to misinterpretation of CBC data. Current Interpretive Data was last revised on 2017. Imm gran pct 0.5 % [facility] Comment: Interpretive Data Percent cell count reference ranges are not reported, since discordance with absolute values may lead to misinterpretation of CBC data. Current Interpretive Data was last revised on 2017. Lymphocyte pct 16.4 % [facility] Comment: Interpretive Data Percent cell count reference ranges are not reported, since discordance with absolute values may lead to misinterpretation of CBC data. Current Interpretive Data was last revised on 2017. Monocyte pct 10.0 % [facility] Comment: Interpretive Data Percent cell count reference ranges are not reported, since discordance with absolute values may lead to misinterpretation of CBC data. Current Interpretive Data was last revised on 2017. Eosinophil pct 9.8 % [facility] Comment: Interpretive Data Percent cell count reference ranges are not reported, since discordance with absolute values may lead to misinterpretation of CBC data. Current Interpretive Data was last revised on 2017. Basophil pct 0.6 % [facility] Comment: Interpretive Data Percent cell count reference ranges are not reported, since discordance with absolute values may lead to misinterpretation of CBC data. Current Interpretive Data was last revised on 2017. Blood 06/30/2025 12:4 3 AM ENGINE BOSS 06/30/2025 1:32 AM ENGINE BOSS us Molina Dsouza MD LAB BLOOD ORDERABL ES Final Result [facility] Department [place] [address] * (ABNORMAL) Iron profile w/ IBC (06/30/2025 12:43 AM ENGINE BOSS) Iron 21(L) 35 - 145 mcg/dL TIBC 222(L) 250 - 400 mcg/dL [facility] Transferrin saturation 9(L) 20 - 50 % [facility] Blood 06/30/2025 12:4 3 AM ENGINE BOSS 06/30/2025 1:31 AM ENGINE BOSS Molina Dsouza MD LAB BLOOD ORDERABL ES Final Result Performing Organization Address [facility] Co de Phone Number [facility] [place] [address] * HIV 1/2 Antibody plus p24 Antigen Blood (06/30/2025 12:43 AM ENGINE BOSS) [facility] HIV 1/2 ab + p24 ag Nonreactive Nonreactive Comment:Nonreactive for HIV- 1 antigen and HIV-1/HIV-2 antibodies. No laboratory evidence of HIV infection. If acute HIV infection is suspected, consider testing for HIV-1 RNA. Current interpretive data was last revised on 22. Blood 06/30/2025 12:4 3 AM ENGINE BOSS 06/30/2025 1:31 AM ENGINE BOSS Molina Dsouza MD LAB MICROBIOLOGY - GENERAL ORDERABLES Final Result Performing Organization Address [facility] de Phone Number [facility] [place] [address] * (ABNORMAL) CBC with auto differential (06/30/2025 12:43 AM ENGINE BOSS) [facility] WBC 6.21 3.80 - 9.90 K/cumm Hgb 9.3(L) 11.9 - 15.5 g/dL [facility] Hct 27.6(L) 35.6 - 45.5 % [facility] Plt 101(L) 150 - 400 K/cumm [facility] MPV 11.7 9.1 - 12.3 fL [facility] RBC 3.40(L) 3.90 - 5.20 M/cumm [facility] MCV 81.2(L) 81.3 - 96.4 fL [facility] MCH 27.4 27.1 - 33.3 pg [facility] MCHC 33.7 32.3 - 35.7 g/dL [facility] RDW CV 15.6(H) 11.1 - 14.9 % [facility] RDW SD 45.6 35.7 - 48.1 fL [facility] NRBC abs 0.00 0.00 - 0.01 K/cumm [facility] Blood 06/30/2025 12:4 3 AM ENGINE BOSS 06/30/2025 1:32 AM ENGINE BOSS Molina Dsouza MD LAB BLOOD ORDERABL ES Final Result Performing Organization Address [facility] de Phone Number [facility] [place] [place] [address] * Hepatitis C antibody Blood (06/30/2025 12:43 AM ENGINE BOSS) [facility] Hep C Ab Nonreactive Nonreactive Comment:Antibodies to HCV no t detected. Does NOT exclude the possibility of recent exposure to HCV. Current interpretive data was last revised on 22 Blood 06/30/2025 12:4 3 AM ENGINE BOSS 06/30/2025 1:31 AM ENGINE BOSS Molina Dsouza MD LAB MICROBIOLOGY - GENERAL ORDERABLES Final Result Performing Organization Address City/[facility] Co de Phone Number [facility] [place] [address] * [id number], Tumor Marker (06/30/2025 12:43 AM ENGINE BOSS) [facility] alpha Fetoprotein <2.0 <=8.3 ng/mL Comment: [...] Cavazos et al. J. Ped Surg 1978;13:[id number] Bertrma Campbell al. Clin Chem Lab Med 2018;57:783-797 Katya House et al. Clin Chem 2014;[id number]. Current interpretive data was last revised 2022. Blood 06/30/2025 12:4 3 AM ENGINE BOSS 06/30/2025 1:31 AM ENGINE BOSS Narrative [facility] 06/30/2025 2:12 AM ENGINE BOSS This lab is to be ordered for patients with a diagnosis of Hepatocellular carcinoma (HCC). Molina Dsouza MD LAB BLOOD ORDERABL ES Final Result Performing Organization Address City/[facility]/ZIP Co de Phone Number [facility] [place] [address] * Hepatitis B core antibody, total Blood (06/30/2025 12:43 AM ENGINE BOSS) Pathologist [facility] Hep B core IgG/IgM Nonreactive Nonreactive Blood 06/30/2025 12:4 3 AM ENGINE BOSS 06/30/2025 1:31 AM ENGINE BOSS Molina Dsouza MD LAB MICROBIOLOGY - GENERAL ORDERABLES Final Result Performing Organization Address City/[facility] Co de Phone Number [facility] [place] [address] * Hepatitis C (HCV) RNA PCR, quantitative Blood (06/30/2025 12:43 AM ENGINE BOSS) [facility] HCV RNA result Not Detected [facility] Comment: The quantifiable range of this assay is 15 IU/mL to 100,000,000 IU/mL (1.18 log IU/mL to 8.00 log IU/mL). Testing was performed by the [employer] 6800 HCV Test ([employer] Testing performed at [facility] Current Interpretive Data was last revised on 2021 Blood 06/30/2025 12:4 3 AM ENGINE BOSS 06/30/2025 1:37 AM ENGINE BOSS us Molina Dsouza MD LAB MICROBIOLOGY - GENERAL ORDERABLES Final Result Performing Organization Address City/[facility] Co de Phone Number [facility] [place] [address] [facility] * Hepatitis B surface antibody (immune status) Blood (06/30/2025 12:43 AM ENGINE BOSS) Pathologist [facility] HBsAb (immune status) Nonreactive Comment:This result is consi stent with a lack of immunity to Hepatitis B Virus when used in the setting of routine screening. Current interpretative data was last revised on 22 Blood 06/30/2025 12:4 3 AM ENGINE BOSS 06/30/2025 1:31 AM ENGINE BOSS us Molina Dsouza MD LAB MICROBIOLOGY - GENERAL ORDERABLES Final Result Performing Organization Address [facility] Co de Phone Number [facility] [place] [address] * Hepatitis B Surface Antigen Blood (06/30/2025 12:43 AM ENGINE BOSS) Pathologist [facility] HepBsAg Nonreactive Nonreactive Blood 06/30/2025 12:4 3 AM ENGINE BOSS 06/30/2025 1:31 AM ENGINE BOSS us Molina Dsouza MD LAB MICROBIOLOGY - GENERAL ORDERABLES Final Result Performing Organization Address [facility] Co de Phone Number [facility] [place] [address] * aPTT (06/30/2025 12:43 AM ENGINE BOSS) aPTT 29 26 - 38 sec Comment: Interpretive Data Heparin therapeutic range: 66.0 - 100.0 seconds. Range based on correlation with therapeutic heparin activity range of 0.3 - 0.7 Units/mL. Blood 06/30/2025 12:4 3 AM ENGINE BOSS 06/30/2025 1:49 AM ENGINE BOSS Molina Dsouza MD LAB BLOOD ORDERABL ES Final Result Performing Organization Address [facility] Co de Phone Number [facility] [place] [address] * (ABNORMAL) Protime-INR (06/30/2025 12:43 AM ENGINE BOSS) PT 18.5(H) 10.2 - 13.5 sec INR 1.65(H) 0.90 - 1.20 [facility] Comment: Interpretive data Oral anticoagulant therapeutic ranges: Venous thromboembolism prophylaxis or treatment: 2.0-3.0 CARDIOLOGY Standard range: 2.0-3.0 High-intensity range: 2.5-3.5 Refer to indication-specific guidelines for appropriate target ranges for prosthetic heart valve replacement. Current interpretive data was last revised on 2019. Blood 06/30/2025 12:4 3 AM ENGINE BOSS 06/30/2025 1:49 AM ENGINE BOSS Molina Dsouza MD LAB BLOOD ORDERABL ES Final Result Performing Organization Address [facility] Co de Phone Number [facility] [place] [address] * Fibrinogen (06/30/2025 12:43 AM ENGINE BOSS) Fibrinogen 221 170 - 400 mg/dL Blood 06/30/2025 12:4 3 AM ENGINE BOSS 06/30/2025 1:49 AM ENGINE BOSS Molina Dsouza MD LAB BLOOD ORDERABL ES Final Result Performing Organization Address [facility]/[place] [address] * Type and screen (06/30/2025 12:43 AM ENGINE BOSS) Rosemarie, indirect Negative ABO Rh A Positive [facility] Blood 06/30/2025 12:4 3 AM ENGINE BOSS 06/30/2025 1:41 AM ENGINE BOSS Narrative [facility] - 06/30/2025 2:29 AM ENGINE BOSS Has the patient had Daratumumab or Isatuximab in the past 6 months?->Unknown Molina Dsouza MD LAB BLOOD BANK BLANCA T ORDERABLES Final Result Performing Organization Address [facility] Co de Phone Number [facility] [place] [address] * (ABNORMAL) Bilirubin, total and direct (06/30/2025 12:43 AM ENGINE BOSS) Bilirubin, total 1.9(H) 0.1 - 1.2 mg/dL Bilirubin, direct 0.8(H) 0.1 - 0.3 mg/dL [facility] Blood 06/30/2025 12:4 3 AM ENGINE BOSS 06/30/2025 1:31 AM ENGINE BOSS Molina Dsouza MD LAB BLOOD ORDERABL ES Final Result Performing Organization Address City/[facility]/ZIP Co de Phone Number [facility] [place] [address] * (ABNORMAL) Uric acid (06/30/2025 12:43 AM ENGINE BOSS) Uric acid 17.4(H) 2.5 - 7.0 mg/dL Blood 06/30/2025 12:4 3 AM ENGINE BOSS 06/30/2025 1:31 AM ENGINE BOSS us Molina Dsouza MD LAB BLOOD ORDERABL ES Final Result Performing Organization Address [facility] de Phone Number [facility] [place] [address] * Phosphorus (06/30/2025 12:43 AM ENGINE BOSS) Phosphorus, pl 2.4 2.3 - 4.5 mg/dL Blood 06/30/2025 12:4 3 AM ENGINE BOSS 06/30/2025 1:31 AM ENGINE BOSS us Molina Dsouza MD LAB BLOOD ORDERABL ES Final Result Performing Organization Address [facility] Phone Number [facility] [place] [address] * Gamma GT (06/30/2025 12:43 AM ENGINE BOSS) GGT 32 5 - 35 Units/L Blood 06/30/2025 12:4 3 AM ENGINE BOSS 06/30/2025 1:31 AM ENGINE BOSS us Molina Dsouza MD LAB BLOOD ORDERABL ES Final Result Performing Organization Address [facility] Phone Number [facility] [place] [address] * Ferritin (06/30/2025 12:43 AM ENGINE BOSS) Ferritin 34 13 - 150 ng/mL Blood 06/30/2025 12:4 3 AM ENGINE BOSS 06/30/2025 1:31 AM ENGINE BOSS us Molina Dsouza MD LAB BLOOD ORDERABL ES Final Result Performing Organization Address [facility] de Phone Number [facility] Department [place] [address] * (ABNORMAL) Lipid panel (06/30/2025 12:43 AM ENGINE BOSS) [facility] Signature Cholesterol 73 30 - 199 mg/dL Comment: [...] revised on 2018. Triglycerides 55 <=149 mg/dL [facility] Comment: Interpretive Data Ages < or = [...] revised on 2018. HDL 31(L) >=40 mg/dL [facility] Comment: Interpretive Data Ages < or = [...] on 2018. LDL, calculated 28 <=129 mg/dL [facility] Comment: Interpretive Data Ages < or = [...] revised on 2024. Non-HDL Cholesterol 42 mg/dL [facility] Comment: Interpretive Data Ages < or = [...] last revised on 2018. [facility]ol/HDL [facility] 2 [facility] Blood 06/30/2025 12:4 3 AM ENGINE BOSS 06/30/2025 1:31 AM ENGINE BOSS us Molina Dsouza MD LAB BLOOD ORDERABL ES Final Result [facility] Department [place] [address] * (ABNORMAL) Comprehensive metabolic panel (06/30/2025 12:43 AM ENGINE BOSS) Sodium 131(L) 135 - 145 mmol/L Potassium, pl 2.9(L) 3.3 - 4.9 mmol/L [facility] Chloride 92(L) 97 - 110 mmol/L [facility] CO2 24 22 - 32 mmol/L [facility] Anion gap 15 2 - 15 mmol/L [facility] BUN 47(H) 6 - 25 mg/dL [facility] Creatinine 2.33(H) 0.60 - 1.10 mg/dL [facility] Glucose 95 70 - 199 mg/dL [facility] Comment: Interpretive Data Fasting glucose >/= 126 [...] 2022. Calcium 9.4 8.5 - 10.3 mg/dL [facility] Bilirubin, total 1.9(H) 0.1 - 1.2 mg/dL [facility] Protein, pl 6.6 6.5 - 8.5 g/dL [facility] Albumin 4.0 3.5 - 5.0 g/dL [facility] Alk phos 56 40 - 130 Units/L [facility] ALT 15 7 - 45 Units/L [facility] AST 31 10 - 45 Units/L [facility] Blood 06/30/2025 12:4 3 AM ENGINE BOSS 06/30/2025 1:31 AM ENGINE BOSS us Molina Dsouza MD LAB BLOOD ORDERABL ES Final Result [facility] [place] [address] * X-ray chest 1 view (06/29/2025 11:36 PM ENGINE BOSS) Anatomical Region Laterality Modality Body, Chest N/A Digital Radiogra phy 06/30/2025 9:03 AM ENGINE BOSS Impressions 06/30/2025 1:40 PM ENGINE BOSS Comparison is made to prior from 06/28/2025 at 10:20 PM. No pulmonary consolidation, pleural effusion, or pneumothorax. Stable cardiomediastinal silhouette. Dictated by: Juan José Vaughn M.D. The radiology attending physician has personally reviewed this study, and had reviewed and/or edited this written report and agrees with it. Electronically signed by: Mohinder Fraser M.D. Narrative 06/30/2025 1:40 PM ENGINE BOSS EXAMINATION: 1 view chest radiograph Procedure Note [...] it. Electronically signed by: Mohinder Fraser M.D. us Molina Dsouza MD IMG XR PROCEDURES Final Result * HLA Virtual Crossmatch Recipient Report (06/29/2025 10:51 PM ENGINE BOSS) us Cristian Martins MD LAB BLOOD ORDERABLES Final R esult * Prepare RBC: 8 Units (06/29/2025 10:48 PM ENGINE BOSS) Product code N8819H64 [facility] Unit Number [id number] 3-K [facility] Product Blood Type APOS [facility] Dispense Status RETURNED [facility] Product code P4470M10 [facility] Unit Number [id number] 6-1 [facility] Product Blood Type APOS [facility] Dispense Status RETURNED [facility] Product code H0334K57 [facility] Unit Number [id number] 3-9 [facility] Product Blood Type APOS [facility] Dispense Status RETURNED [facility] Product code [id number] [facility] Unit Number [id number] 7-W [facility] Product Blood Type APOS [facility] Dispense Status RETURNED [facility] Product code I3685Q24 [facility] Unit Number [id number] 4-R [facility] Product Blood Type ANEG [facility] Dispense Status RETURNED [facility] Product code [id number] [facility] Unit Number [id number] 6-A [facility] Product Blood Type ANEG [facility] Dispense Status RETURNED [facility] Product code [id number] [facility] Unit Number [id number] 3-J [facility] Product Blood Type ANEG [facility] Dispense Status RETURNED [facility] Product code H2656B56 Unit Number [id number] 4-6 [facility] Product Blood Type ANEG [facility] Dispense Status RETURNED [facility] Blood 06/29/2025 10:4 8 PM ENGINE BOSS 06/29/2025 11:04 PM ENGINE BOSS Narrative [facility] - 07/01/2025 1:15 PM ENGINE BOSS Specify Procedure:->OR liver kidney transplant Are special requirements needed? (All products are leukoreduced and CMV- safe)- >No Date required:-[id number] LRRBC # of [id number] Reasons:-Hold for procedure (specify procedure)} us Molina Dsouza MD BLOOD BANK PRODUCT ORDERABLES Final Result [facility] Department [place] [address] * (ABNORMAL) Differential, auto (06/29/2025 10:41 PM ENGINE BOSS) Pathologist [facility] Neutrophil abs 3.84 1.50 - 6.50 K/cumm Imm gran abs 0.03 0.00 - 0.10 K/cumm [facility] Lymphocyte abs 1.05 0.80 - 3.30 K/cumm [facility] Monocyte abs 0.77 0.20 - 0.80 K/cumm [facility] Eosinophil abs 0.53(H) 0.00 - 0.50 K/cumm [facility] Basophil abs 0.02 0.00 - 0.10 K/cumm [facility] Neutrophil pct 61.6 % [facility] Comment: Interpretive Data Percent cell count reference ranges are not reported, since discordance with absolute values may lead to misinterpretation of CBC data. Current Interpretive Data was last revised on 2017. Imm gran pct 0.5 % [facility] Comment: Interpretive Data Percent cell count reference ranges are not reported, since discordance with absolute values may lead to misinterpretation of CBC data. Current Interpretive Data was last revised on 2017. Lymphocyte pct 16.8 % [facility] Comment: Interpretive Data Percent cell count reference ranges are not reported, since discordance with absolute values may lead to misinterpretation of CBC data. Current Interpretive Data was last revised on 2017. Monocyte pct 12.3 % [facility] Comment: Interpretive Data Percent cell count reference ranges are not reported, since discordance with absolute values may lead to misinterpretation of CBC data. Current Interpretive Data was last revised on 2017. Eosinophil pct 8.5 % [facility] Comment: Interpretive Data Percent cell count reference ranges are not reported, since discordance with absolute values may lead to misinterpretation of CBC data. Current Interpretive Data was last revised on 2017. Basophil pct 0.3 % [facility] Comment: Interpretive Data Percent cell count reference ranges are not reported, since discordance with absolute values may lead to misinterpretation of CBC data. Current Interpretive Data was last revised on 2017. Blood 06/29/2025 10:4 1 PM ENGINE BOSS 06/29/2025 11:26 PM ENGINE BOSS us Najma Pires MD LAB BLOOD ORDERABLES Final Result [facility] [place] [address] * (ABNORMAL) CBC with auto differential (06/29/2025 10:41 PM ENGINE BOSS) Pathologist [facility] WBC 6.24 3.80 - 9.90 K/cumm Hgb 9.0(L) 11.9 - 15.5 g/dL [facility] Comment:Consistent with hist orical value. Hct 27.5(L) 35.6 - 45.5 % [facility] Plt 96(L) 150 - 400 K/cumm [facility] MPV 10.7 9.1 - 12.3 fL [facility] RBC 3.33(L) 3.90 - 5.20 M/cumm [facility] MCV 82.6 81.3 - 96.4 fL [facility] MCH 27.0(L) 27.1 - 33.3 pg [facility] MCHC 32.7 32.3 - 35.7 g/dL [facility] RDW CV 15.7(H) 11.1 - 14.9 % [facility] RDW SD 47.0 35.7 - 48.1 fL [facility] NRBC abs 0.00 0.00 - 0.01 K/cumm [facility] Blood 06/29/2025 10:4 1 PM ENGINE BOSS 06/29/2025 11:26 PM ENGINE BOSS Najma Pires MD LAB BLOOD ORDERABLES Final Result Performing Organization Address City/[facility]/ZIP Co de Phone Number [facility] [place] [address] * Phosphorus (06/29/2025 10:41 PM ENGINE BOSS) Pathologist [facility] Phosphorus, pl 2.4 2.3 - 4.5 mg/dL Blood 06/29/2025 10:4 1 PM ENGINE BOSS 06/29/2025 11:25 PM ENGINE BOSS Najma Pires MD LAB BLOOD ORDERABLES Final Result [facility] [place] [address] * Magnesium (06/29/2025 10:41 PM ENGINE BOSS) [facility] Magnesium 1.8 1.4 - 2.5 mg/dL Blood 06/29/2025 10:4 1 PM ENGINE BOSS 06/29/2025 11:25 PM ENGINE BOSS Najma Pires MD LAB BLOOD ORDERABLES Final Result Performing Organization Address [facility] Co de Phone Number [facility] [place] [address] * (ABNORMAL) Hepatic function panel (06/29/2025 10:41 PM ENGINE BOSS) [facility] Bilirubin, total 1.9(H) 0.1 - 1.2 mg/dL Bilirubin, direct 0.8(H) 0.1 - 0.3 mg/dL [facility] Protein, pl 6.4(L) 6.5 - 8.5 g/dL [facility] Albumin 3.9 3.5 - 5.0 g/dL [facility] Alk phos 54 40 - 130 Units/L [facility] ALT 15 7 - 45 Units/L [facility] AST 30 10 - 45 Units/L [facility] Blood 06/29/2025 10:4 1 PM ENGINE BOSS 06/29/2025 11:25 PM ENGINE BOSS Najma Pires MD LAB BLOOD ORDERABLES Final Result Performing Organization Address City/[facility] Co de Phone Number [facility] [place] [address] * Infection Prevention MRSA Only (Staphylococcus aureus) PCR Nasal (06/29/2025 9:25 PM ENGINE BOSS) [facility] PCR Scrn, Methicillin resistant Staphylococcus aureus (MRSA) Not Detected Not Detected [facility] Comment: Testing performed using Nucleic Acid Amplification with the [employer] Xpert MRSA NxG Assay. This assay detects target DNA from mecA, mecC and the SCCmec insertion site of Staphylococcus aureus using Real-Time PCR and has been cleared by the FDA. Performance characteristics have been verified by the [facility]. Nasal 06/29/2025 9:25 PM ENGINE BOSS 06/29/2025 10:33 PM ENGINE BOSS Swapnil Cisneros MD LAB MICROBIOLOGY - GENE RAL ORDERABLES Final Result Performing Organization Address [facility] Co de Phone Number [facility] [place] [address] [facility] * POCT glucose (06/29/2025 7:48 PM ENGINE BOSS) Pathologist [facility] Glucose, POC 104 70 - 199 mg/dL Blood 06/29/2025 7:48 PM ENGINE BOSS 06/29/2025 7:48 PM ENGINE BOSS Najma Pires MD LAB POCT ORDERABLES - DEVIC E Final Result Performing Organization Address [facility] de Phone Number [facility] [place] [address] * ECG 12 lead (06/29/2025 6:03 PM ENGINE BOSS) Ventricular Rate EKG/Min 134 BPM [facility] Atrial Rate 134 BPM [facility] NH-Interval (MSEC) 176 ms [facility] QRS-Interval (MSEC) 160 ms [facility] QT-Interval (MSEC) 402 ms [facility] QTc 600 ms [facility] P Slayden 91 degrees [facility] R [place] 65 degrees [facility] T Slay[place] 94 degrees [facility] Diagnosis Sinus tachycardia Right bundle branch block T wave abnormality, consider inferior ischemia Abnormal ECG No previous ECGs available Confirmed by GREGORIA SALGUERO M.D ([id number]) on 07/06/2025 5:56:39 PM [facility] 06/29/2025 6:03 PM ENGINE BOSS 07/06/2025 5:56 PM ENGINE BOSS Molina Dsouza MD ECG ORDERABLES Fi nal Result Performing Organization Address [facility] Co de Phone Number [facility] * (ABNORMAL) Sepsis Lactate w/ Reflex (06/29/2025 3:20 PM ENGINE BOSS) Sepsis Lactate 2.6(H) 0.7 - 2.0 mmol/L Blood 06/29/2025 3:20 PM ENGINE BOSS 06/29/2025 3:40 PM ENGINE BOSS Christina Jesus MD LAB BLOOD ORDERABLES Final Result Performing Organization Address [facility] Phone Number [facility] [place] [address] * POCT glucose (06/29/2025 3:19 PM ENGINE BOSS) Pathologist [facility] Glucose, POC 178 70 - 199 mg/dL Comment:Glu2: RN/MD Notified Glucose comment 1 Glu2: RN/MD Notified [facility] Blood 06/29/2025 3:19 PM ENGINE BOSS 06/29/2025 3:19 PM ENGINE BOSS Result [facility] Christina Jesus MD LAB POCT ORDERABLES - DEVICE Final Result Performing Organization Address [facility] Phone Number [facility] [place] [address] * Urea nitrogen, urine, random (06/29/2025 1:16 PM ENGINE BOSS) Urea nitrogen, ur 264 mg/dL Comment: Interpretive Data No reference range established. Current interpretive data was last revised 2018. Urine 06/29/2025 1:16 PM ENGINE BOSS 06/29/2025 1:41 PM ENGINE BOSS Christina Jesus MD LAB URINE ORDERABLES Final Result Performing Organization Address [facility] Co de Phone Number CHARISSA [facility] [place] [address] * Sodium, urine, random (06/29/2025 1:16 PM ENGINE BOSS) Sodium, ur 44 mmol/L Comment: Interpretive Data No reference range established. Current interpretive data was last revised 2018. Urine 06/29/2025 1:16 PM ENGINE BOSS 06/29/2025 1:41 PM ENGINE BOSS Christina Jesus MD LAB URINE ORDERABLES Final Result Performing Organization Address [facility] de Phone Number [facility] [place] [address] * Creatinine, urine, random (06/29/2025 1:16 PM ENGINE BOSS) Creatinine Ur 93.5 mg/dL Comment: Interpretive Data No reference range established. Current interpretive data was last revised 2018. Urine 06/29/2025 1:16 PM ENGINE BOSS 06/29/2025 1:41 PM ENGINE BOSS Christina Jesus MD LAB URINE ORDERABLES Final Result Performing Organization Address [facility] Co de Phone Number [facility] [place] [address] * (ABNORMAL) Sepsis Lactate w/ Reflex (06/29/2025 11:44 AM ENGINE BOSS) Sepsis Lactate 2.9(H) 0.7 - 2.0 mmol/L Blood 06/29/2025 11:4 4 AM ENGINE BOSS 06/29/2025 1:20 PM ENGINE BOSS Christina Jesus MD LAB BLOOD ORDERABLES Final Result Performing Organization Address [facility] Co de Phone Number CHARISSA [facility] Department [place] [address] * ECG 12-LEAD (06/29/2025 11:20 AM ENGINE BOSS) Narrative MUSE [facility] - 06/29/2025 11:20 AM ENGINE BOSS Christina Jesus MD 06/29/2025 11:23 AM ECG 12 lead Date/Time: 06/29/2025 11:20 AM Performed by: Christina Jesus MD Authorized by: Christina Jesus MD Comments: EKG Interpretation Interpreted by ED physician in absence of a shipping checker Ventricular rate: 132 bpm Rhythm: sinus tachycardia Slayden: Normal Intervals: wide QRS with RBBB morphology [...] by ED physician in absence of a shipping checker Ventricular rate: 132 bpm Rhythm: sinus tachycardia Slayden: Normal Intervals: wide QRS with RBBB morphology Other findings: Twave abnormality Interpretation: tachycardic, no stemi Compared to priors: appears similar to EKGs from earlier this ED stay Christina Jesus MD 06/29/25 1123 us Christina Jesus MD ECG ORDERABLES Edite d Result - Final [facility] * POCT glucose (06/29/2025 11:16 AM ENGINE BOSS) Glucose, POC 107 70 - 199 mg/dL Blood 06/29/2025 11:1 6 AM ENGINE BOSS 06/29/2025 11:16 AM ENGINE BOSS us Christina Jesus MD LAB POCT ORDERABLES - DEVICE Final Result Performing Organization Address [facility]/ZIP Co de Phone Number [facility] [place] [address] * (ABNORMAL) Urinalysis reflex to microscopic and culture Urine (06/29/2025 8:09 AM ENGINE BOSS) Color, ur Straw Yellow Clarity, ur Cloudy(A) Clear [facility] Specific gravity, ur 1.013 1.003 - 1.030 [facility] pH, urine 6.0 [facility] Comment: Interpretive Data U rine pH is affected by diet, medications, systemic acid-base disturbances, and renal tubular function. pH may affect urinary stone formation. For example, urine pH below 6.0 may help reduce the tendency for calcium phosphate stones and pH greater than 6.0 may reduce the tendency for uric acid stone formation. Source: [facility] [employer] Current Interpretive Data was last revised on 2017 Protein, ur ql Negative Negative [facility] Glucose, ur ql Negative Negative [facility] Ketones, ur Negative Negative [facility] Bilirubin, ur Negative Negative [facility] Blood, ur Negative Negative [facility] Urobilinogen, ur <2.0 <2.0 mg/dL [facility] Nitrite, ur Negative Negative [facility] Leukocyte esterase, ur 3+(A) Negative [facility] UA reflex comment Reflex to microscopic UA will be performed. [facility] Urine 06/29/2025 8:09 AM ENGINE BOSS 06/29/2025 9:37 AM ENGINE BOSS us Yossi Ga MD LAB MICROBIOLOGY - GENER AL ORDERABLES Final Result Performing Organization Address [facility]/ZIP Co de Phone Number CHARISSA [facility] [place] [address] * (ABNORMAL) Urinalysis, microscopic only (06/29/2025 8:09 AM ENGINE BOSS) WBC, ur 21-50(A) 0 - 5 /HPF RBC, ur 11-20(A) 0 - 2 /HPF [facility] Epithelial cells, squamous, ur 6-10(A) 0 - 5 /HPF [facility] Comment:Suggestive of contam ination. Consider recollection by clean catch. Epithelial cells, renal, ur 1-5(A) 0 - 0 /HPF [facility] Epithelial cells, transitional, ur 1-5 0 - 0 /HPF [facility] Bacteria, ur Trace(A) [facility] Mucous, ur Present(A) [facility] Hyaline casts, ur >50(A) 0 - 10 /LPF [facility] Culture Reflex Comment Reflex to urine culture will be performed. [facility] Urine 06/29/2025 8:09 AM ENGINE BOSS 06/29/2025 9:37 AM ENGINE BOSS Yossi Ga MD LAB URINE ORDERABLES Fin al Result Performing Organization Address [facility] de Phone Number [facility] [place] [place] [address] * Urine culture Urine (06/29/2025 8:09 AM ENGINE BOSS) Report Final Report: Less than 100,000 colonies/mL (clinically insignificant growth based on current clinical standards) Organism (CLINICALLY INSIGNIFICANT GROWTH [facility] Urine 06/29/2025 8:09 AM ENGINE BOSS 06/29/2025 3:39 PM ENGINE BOSS Narrative [facility] - 06/30/2025 4:17 PM ENGINE BOSS Urine culture reflexed based upon urinalysis results. Testing performed by [facility] ([phone]) Yossi Ga MD LAB MICROBIOLOGY - GENER AL ORDERABLES Final Result Performing Organization Address [facility] Co de Phone Number [facility] [place] [place] [address] * (ABNORMAL) Troponin I high-sensitivity 6-hour (06/29/2025 8:00 AM ENGINE BOSS) Trop I hs 44(H) <=17 ng/L Comment: Interpretive Data For further hscTnI resources including the diagnostic algorithm and an aid in interpretation, copy and paste this link: https://bjhlab.testcatalog.org/show/hsTrop-1 Current Interpretive Data last revised 2020. Trop I hs delta 13 ng/L [facility] Trop I hs interp Equivocal [facility] Blood 06/29/2025 8:00 AM ENGINE BOSS 06/29/2025 9:57 AM ENGINE BOSS us Luis Smith MD LAB BLOOD ORDERABLES Fin al Result [facility] Department [place] [address] * (ABNORMAL) eGFR (06/29/2025 8:00 AM ENGINE BOSS) eGFR 20(L) >=60 mL/min/1. 73 m2 Comment: [...] last reviewed 2021. Blood 06/29/2025 8:00 AM ENGINE BOSS 06/29/2025 9:57 AM ENGINE BOSS us Christina Jesus MD LAB BLOOD ORDERABLES Final Result [facility] [place] [address] * Magnesium (06/29/2025 8:00 AM ENGINE BOSS) [facility] Magnesium 1.7 1.4 - 2.5 mg/dL Blood 06/29/2025 8:00 AM ENGINE BOSS 06/29/2025 9:57 AM ENGINE BOSS Swapnil Cisneros MD LAB BLOOD ORDERABLES Fi nal Result [facility] [place] [address] * (ABNORMAL) Basic metabolic panel (06/29/2025 8:00 AM ENGINE BOSS) [facility] Sodium 129(L) 135 - 145 mmol/L Potassium, pl 3.3 3.3 - 4.9 mmol/L [facility] Chloride 89(L) 97 - 110 mmol/L [facility] CO2 26 22 - 32 mmol/L [facility] Anion gap 14 2 - 15 mmol/L [facility] BUN 45(H) 6 - 25 mg/dL [facility] Creatinine 2.58(H) 0.60 - 1.10 mg/dL [facility] Glucose 113 70 - 199 mg/dL [facility] Comment: Interpretive Data Fasting glucose >/= 126 [...] 2022. Calcium 9.4 8.5 - 10.3 mg/dL [facility] Blood 06/29/2025 8:00 AM ENGINE BOSS 06/29/2025 9:57 AM ENGINE BOSS Christina Jesus MD LAB BLOOD ORDERABLES Final Result [facility] [place] [address] * POCT glucose (06/29/2025 7:57 AM ENGINE BOSS) Glucose, POC 135 70 - 199 mg/dL Blood 06/29/2025 7:57 AM ENGINE BOSS 06/29/2025 7:57 AM ENGINE BOSS Kary Santiago MD LAB POCT ORDERABLES - DE VICE Final Result Performing Organization Address [facility] [place] [address] * (ABNORMAL) Troponin I high-sensitivity 4-hour (06/29/2025 6:20 AM ENGINE BOSS) Pathologist [facility] Trop I hs 38(H) <=17 ng/L Comment: Interpretive Data For further hscTnI resources including the diagnostic algorithm and an aid in interpretation, copy and paste this link: https://bjhlab.testcatalog.org/show/hsTrop-1 Current Interpretive Data last revised 2020. Trop I hs delta 7 ng/L [facility] Trop I hs interp Equivocal [facility] Blood 06/29/2025 6:20 AM ENGINE BOSS 06/29/2025 6:47 AM ENGINE BOSS Luis Smith MD LAB BLOOD ORDERABLES Fin al Result Performing Organization Address [facility]/ZIP Co de Phone Number [facility] [place] [address] * ECG 12-LEAD (06/29/2025 5:01 AM ENGINE BOSS) Narrative [facility] - 06/29/2025 5:01 AM ENGINE BOSS See Nicholas MD PhD 06/29/2025 5:02 AM ECG 12 lead Date/Time: 06/29/2025 5:01 AM Performed by: See Nicholas MD PhD Authorized by: See Nicholas MD PhD Comments: (02:26) atrial fibrillation with rapid ventricular response at 124 beats per minute; normal axis; right bundle branch block; inferolateral ST and T-wave abnormalities. Compared to previous EKG rate has slowed slightly. us See Nicholas MD PhD ECG ORDERABLES Fin al Result Performing Organization Address [facility] Co de Phone Number [facility] * (ABNORMAL) Troponin I high-sensitivity 2-hour (06/29/2025 4:10 AM ENGINE BOSS) Trop I hs 38(H) <=17 ng/L Comment: Interpretive Data For further hscTnI resources including the diagnostic algorithm and an aid in interpretation, copy and paste this link: https://bjhlab.testcatalog.org/show/hsTrop-1 Current Interpretive Data last revised 2020. Trop I hs delta 7 ng/L [facility] Trop I hs interp Equivocal [facility] Blood 06/29/2025 4:10 AM ENGINE BOSS 06/29/2025 4:26 AM ENGINE BOSS Luis Smith MD LAB BLOOD ORDERABLES Fin al Result Performing Organization Address [facility] de Phone Number [facility] [place] [address] * POCT glucose (06/29/2025 3:53 AM ENGINE BOSS) [facility] Glucose, POC 143 70 - 199 mg/dL Blood 06/29/2025 3:53 AM ENGINE BOSS 06/29/2025 3:53 AM ENGINE BOSS See Nicholas MD PhD LAB POCT ORDERABLES - DEVICE Final Result Performing Organization Address [facility] Co de Phone Number [facility] [place] [address] * (ABNORMAL) Troponin I high-sensitivity series (baseline, 2hr, 4hr, 6hr) (06/29/2025 2:00 AM ENGINE BOSS) Trop I hs 31(H) <=17 ng/L Comment: Interpretive Data For further hscTnI resources including the diagnostic algorithm and an aid in interpretation, copy and paste this link: https://bjhlab.testcatalog.org/show/hsTrop-1 Current Interpretive Data last revised 2020. Blood 06/29/2025 2:00 AM ENGINE BOSS 06/29/2025 2:32 AM ENGINE BOSS us Luis Smith MD LAB BLOOD ORDERABLES Fin al Result Performing Organization Address [facility]/ZIP Co de Phone Number [facility] [place] [address] * ECG 12-LEAD (06/29/2025 1:44 AM ENGINE BOSS) Narrative MUSE [facility] - 06/29/2025 1:44 AM ENGINE BOSS See Nicholas MD PhD 06/29/2025 1:46 AM [...] rhythm and inferolateral T-wave abnormalities are new. See Nicholas MD PhD ECG ORDERABLES Fin al Result [facility] * POCT glucose (06/28/2025 11:46 PM ENGINE BOSS) Pathologist [facility] Glucose, POC 149 70 - 199 mg/dL Blood 06/28/2025 11:4 6 PM ENGINE BOSS 06/28/2025 11:46 PM ENGINE BOSS us See Nicholas MD PhD LAB POCT ORDERABLES - DEVICE Final Result CHARISSA [facility] [place] [address] * [place] CRITICAL CARE ILL/INJURED PATIENT INIT 30-74 MIN (06/28/2025 11:00 PM ENGINE BOSS) Narrative Yossi Ga MD - 06/28/2025 11:00 PM ENGINE BOSS Yossi Ga MD 06/29/2025 9:51 AM Critical [...] Respiratory pathogen panel Nasopharyngeal (06/28/2025 10:32 PM ENGINE BOSS) Influenza A RNA Not Detected Not Detected Influenza B RNA Not Detected Not Detected [facility] RSV RNA Not Detected Not Detected [facility] COVID-19 RNA Not Detected Not Detected [facility] Coronavirus 229E RNA Not Detected Not Detected [facility] Coronavirus HKU1 RNA Not Detected Not Detected [facility] Coronavirus NL63 RNA Not Detected Not Detected [facility] Coronavirus OC43 RNA Not Detected Not Detected [facility] Adenovirus DNA Not Detected Not Detected [facility] Metapneumovirus RNA Not Detected Not Detected [facility] Rhinovirus/Enterov irus RNA Not Detected Not Detected [facility] Parainfluenza 1 RNA Not Detected Not Detected [facility] Parainfluenza 2 RNA Not Detected Not Detected [facility] Parainfluenza 3 RNA Not Detected Not Detected [facility] Parainfluenza 4 RNA Not Detected Not Detected [facility] B. pertussis DNA Not Detected Not Detected [facility] B. parapertussis DNA Not Detected Not Detected [facility] C. pneumoniae DNA Not Detected Not Detected [facility] M. pneumoniae DNA Not Detected Not Detected [facility] Nasopharyngeal 06/28/2025 10 :32 PM ENGINE BOSS 06/28/2025 11:01 PM ENGINE BOSS Narrative [facility] - 06/29/2025 12:00 AM ENGINE BOSS Is the Patient experiencing symptoms consistent with COVID?->Unknown Surveillance testing for transplant patient?->No Interpretive Data The tok tok tok FilmArray Respiratory Panel (RP2.1) assay is a [...] has FDA clearance for testing of MANAGER CAREER swabs. The performance of additional specimen types has been assessed by the performing laboratory. The performance characteristics of this assay have been determined by [facility] Molecular Infectious Disease Laboratory. Current interpretive data was last revised on 22. Yossi Ga MD LAB MICROBIOLOGY - [facility] ORDERABLES Final Result CHARISSA DUNNE [facility] [place] [address] * Blood culture Blood Peripheral (06/28/2025 10:32 PM ENGINE BOSS) Report Final Report: No growth Blood (Peripheral) 06/28/2025 10:32 PM ENGINE BOSS 06/28/2025 10:51 PM ENGINE BOSS Diane [facility] - 07/03/2025 7:00 AM ENGINE BOSS From a different site than #1. Draw [...] performance characteristics have been verified by the [facility]biology Laboratory. For questions about this culture, contact the Microbiology Laboratory at [phone]. Interpretive data was last revised on 24. us Yossi Ga MD LAB MICROBIOLOGY - [facility] ORDERABLES Final Result [facility] [place] [address] * Blood culture Blood Peripheral (06/28/2025 10:32 PM ENGINE BOSS) Report Final Report: No growth Blood (Peripheral) 06/28/2025 10:32 PM ENGINE BOSS 06/28/2025 10:52 PM ENGINE BOSS Diane [facility] - 07/03/2025 7:00 AM ENGINE BOSS Draw Blood cultures before administration of Antibiotics [...] performance characteristics have been verified by the [facility]. For questions about this culture, contact the Microbiology Laboratory at [phone]. Interpretive data was last revised on 24. Yossi Ga MD LAB MICROBIOLOGY - GENER AL ORDERABLES Final Result Performing Organization Address [facility] Co de Phone Number [facility] [place] [address] * (ABNORMAL) Protime-INR (06/28/2025 10:32 PM ENGINE BOSS) PT 16.3(H) 10.2 - 13.5 sec INR 1.45(H) 0.90 - 1.20 [facility] Comment: Interpretive data Oral anticoagulant therapeutic ranges: Venous thromboembolism prophylaxis or treatment: 2.0-3.0 CARDIOLOGY Standard range: 2.0-3.0 High-intensity range: 2.5-3.5 Refer to indication-specific guidelines for appropriate target ranges for prosthetic heart valve replacement. Current interpretive data was last revised on 2019. Blood 06/28/2025 10:3 2 PM ENGINE BOSS 06/28/2025 11:01 PM ENGINE BOSS Yossi Ga MD LAB BLOOD ORDERABLES Fin al Result Performing Organization Address [facility] de Phone Number [facility] [place] [address] * XR Chest 1 Vw Portable (06/28/2025 10:31 PM ENGINE BOSS) Anatomical Region Laterality Modality Body, Chest N/A Computed Radiogr aphy 06/28/2025 10:3 4 PM ENGINE BOSS Impressions 06/29/2025 11:14 AM ENGINE BOSS FINDINGS/IMPRESSION: Lungs are clear. No pleural effusion or pneumothorax. Cardiac mediastinal silhouette is stable from prior exam. Dictated by: Jet Briones MD The radiology attending physician has personally reviewed this study, and had reviewed and/or edited this written report and agrees with it. Electronically signed by: Marnie Shin M.D. Narrative 06/29/2025 11:14 AM ENGINE BOSS EXAMINATION: XR CHEST 1 VIEW HISTORY: tachycardia [...] Result * (ABNORMAL) eGFR (06/28/2025 8:28 PM ENGINE BOSS) eGFR 24(L) >=60 mL/min/1. 73 m2 Comment: [...] last reviewed 2021. Blood 06/28/2025 8:28 PM ENGINE BOSS 06/28/2025 8:42 PM ENGINE BOSS us Yossi Ga MD LAB BLOOD ORDERABLES Fin al Result [facility] [place] [address] * (ABNORMAL) Differential, auto (06/28/2025 8:28 PM ENGINE BOSS) Neutrophil abs 5.80 1.50 - 6.50 K/cumm Imm gran abs 0.02 0.00 - 0.10 K/cumm [facility] Lymphocyte abs 1.03 0.80 - 3.30 K/cumm [facility] Monocyte abs 0.81(H) 0.20 - 0.80 K/cumm [facility] Eosinophil abs 0.25 0.00 - 0.50 K/cumm [facility] Basophil abs 0.02 0.00 - 0.10 K/cumm [facility] Neutrophil pct 73.0 % [facility] Comment: Interpretive Data Percent cell count reference ranges are not reported, since discordance with absolute values may lead to misinterpretation of CBC data. Current Interpretive Data was last revised on 2017. Imm gran pct 0.3 % [facility] Comment: Interpretive Data Percent cell count reference ranges are not reported, since discordance with absolute values may lead to misinterpretation of CBC data. Current Interpretive Data was last revised on 2017. Lymphocyte pct 13.0 % [facility] Comment: Interpretive Data Percent cell count reference ranges are not reported, since discordance with absolute values may lead to misinterpretation of CBC data. Current Interpretive Data was last revised on 2017. Monocyte pct 10.2 % [facility] Comment: Interpretive Data Percent cell count reference ranges are not reported, since discordance with absolute values may lead to misinterpretation of CBC data. Current Interpretive Data was last revised on 2017. Eosinophil pct 3.2 % [facility] Comment: Interpretive Data Percent cell count reference ranges are not reported, since discordance with absolute values may lead to misinterpretation of CBC data. Current Interpretive Data was last revised on 2017. Basophil pct 0.3 % [facility] Comment: Interpretive Data Percent cell count reference ranges are not reported, since discordance with absolute values may lead to misinterpretation of CBC data. Current Interpretive Data was last revised on 2017. Blood 06/28/2025 8:28 PM ENGINE BOSS 06/28/2025 8:42 PM ENGINE BOSS Yossi Ga MD LAB BLOOD ORDERABLES Fin al Result Performing Organization Address City/[facility] Co de Phone Number [facility] [place] [place] [address] * (ABNORMAL) CBC with auto differential (06/28/2025 8:28 PM ENGINE BOSS) WBC 7.93 3.80 - 9.90 K/cumm Hgb 12.2 11.9 - 15.5 g/dL [facility] Hct 35.4(L) 35.6 - 45.5 % [facility] Plt 147(L) 150 - 400 K/cumm [facility] MPV 10.9 9.1 - 12.3 fL [facility] RBC 4.45 3.90 - 5.20 M/cumm [facility] MCV 79.6(L) 81.3 - 96.4 fL [facility] MCH 27.4 27.1 - 33.3 pg [facility] MCHC 34.5 32.3 - 35.7 g/dL [facility] RDW CV 15.7(H) 11.1 - 14.9 % [facility] RDW SD 45.1 35.7 - 48.1 fL [facility] NRBC abs 0.00 0.00 - 0.01 K/cumm [facility] Blood 06/28/2025 8:28 PM ENGINE BOSS 06/28/2025 8:42 PM ENGINE BOSS Yossi Ga MD LAB BLOOD ORDERABLES Fin al Result Performing Organization Address [facility] Co de Phone Number [facility] [place] [address] * Lipase (06/28/2025 8:28 PM ENGINE BOSS) Lipase 65 10 - 99 Units/L Blood 06/28/2025 8:28 PM ENGINE BOSS 06/28/2025 8:42 PM ENGINE BOSS Yossi Ga MD LAB BLOOD ORDERABLES Fin al Result Performing Organization Address [facility] de Phone Number [facility] [place] [address] * Hemoglobin A1c (06/28/2025 8:28 PM ENGINE BOSS) Pathologist [facility] Hgb A1C 5.2 4.0 - 5.6 % Estimated Average Glucose 103 mg/dL [facility] Comment: The ADA recommends reporting an estimated Average Glucose (eAG) with all Hemoglobin A1c results using the equation derived from a study of 507 normal and diabetic adults. Minority populations were underrepresented and children were not included. (Diabetes Care 2020; 43(S1): S66-S76). The eAG is not equivalent to a fasting glucose. Blood 06/28/2025 8:2 8 PM ENGINE BOSS 06/28/2025 8:45 PM ENGINE BOSS Kary Santiago MD LAB BLOOD ORDERABLES Fin al Result Performing Organization Address [facility] de Phone Number [facility] [place] [address] * Ammonia (06/28/2025 8:28 PM ENGINE BOSS) Ammonia 50 <=50 mcmol/L Blood 06/28/2025 8:28 PM ENGINE BOSS 06/28/2025 8:39 PM ENGINE BOSS Yossi Ga MD LAB BLOOD ORDERABLES Fin al Result Performing Organization Address [facility] de Phone Number [facility] [place] [address] * (ABNORMAL) Hepatic function panel (06/28/2025 8:28 PM ENGINE BOSS) Bilirubin, total 3.4(H) 0.1 - 1.2 mg/dL Bilirubin, direct 1.2(H) 0.1 - 0.3 mg/dL [facility] Protein, pl 7.3 6.5 - 8.5 g/dL [facility] Albumin 3.5 3.5 - 5.0 g/dL [facility] Alk phos 76 40 - 130 Units/L [facility] ALT 20 7 - 45 Units/L [facility] AST 35 10 - 45 Units/L [facility] Blood 06/28/2025 8:28 PM ENGINE BOSS 06/28/2025 8:42 PM ENGINE BOSS Yossi Ga MD LAB BLOOD ORDERABLES Fin al Result [facility] [place] [address] * Lipid panel (06/28/2025 8:28 PM ENGINE BOSS) Cholesterol 110 30 - 199 mg/dL Comment: [...] revised on 2018. Triglycerides 65 <=149 mg/dL [facility] Comment: Interpretive Data Ages < or = [...] revised on 2018. HDL 47 >=40 mg/dL [facility] Comment: Interpretive Data Ages < or = [...] on 2018. LDL, calculated 49 <=129 mg/dL [facility] Comment: Interpretive Data Ages < or = [...] revised on 2024. Non-HDL Cholesterol 63 mg/dL [facility] Comment: Interpretive Data Ages < [...] last revised on 2018. Chol/HDL ratio 2 [facility] Blood 06/28/2025 8:28 PM ENGINE BOSS 06/28/2025 8:42 PM ENGINE BOSS us Kary Santiago MD LAB BLOOD ORDERABLES Fin al Result [facility] Department [place] [address] * (ABNORMAL) Basic metabolic panel (06/28/2025 8:28 PM ENGINE BOSS) Sodium 127(L) 135 - 145 mmol/L Potassium, pl 3.0(L) 3.3 - 4.9 mmol/L [facility] Chloride 84(L) 97 - 110 mmol/L [facility] Comment:Repeated and Verifie d CO2 25 22 - 32 mmol/L [facility] Anion gap 18(H) 2 - 15 mmol/L [facility] BUN 39(H) 6 - 25 mg/dL [facility] Creatinine 2.21(H) 0.60 - 1.10 mg/dL [facility] Glucose 151 70 - 199 mg/dL [facility] Comment: Interpretive Data Fasting glucose >/= 126 [...] 2022. Calcium 9.9 8.5 - 10.3 mg/dL [facility] Blood 06/28/2025 8:28 PM ENGINE BOSS 06/28/2025 8:42 PM ENGINE BOSS Yossi Ga MD LAB BLOOD ORDERABLES Fin al Result Performing Organization Address [facility] Co de Phone Number [facility] [place] [address] * (ABNORMAL) ECG 12-LEAD (06/28/2025 8:05 PM ENGINE BOSS) Narrative [facility] - 06/28/2025 8:05 PM ENGINE BOSS Yossi Ga MD 06/28/2025 8:06 PM ECG [...] follow up: further workup in the ED Yossi Ga MD ECG ORDERABLES Final Re sult Performing Organization Address [facility] Co de Phone Number [facility] * POCT glucose (06/28/2025 4:52 PM ENGINE BOSS) Glucose, POC 135 70 - 199 mg/dL Blood 06/28/2025 4:52 PM ENGINE BOSS 06/28/2025 4:52 PM ENGINE BOSS Notinfile Unknown LAB POCT ORDERABLES - DEVICE F inal Result Performing Organization Address [facility] Co de Phone Number [facility] [place] [address] * POCT glucose (06/28/2025 4:32 PM ENGINE BOSS) Glucose, POC 152 70 - 199 mg/dL Blood 06/28/2025 4:32 PM ENGINE BOSS 06/28/2025 4:32 PM ENGINE BOSS Notinfile Unknown LAB POCT ORDERABLES - DEVICE F inal Result Performing Organization Address [facility] Co de Phone Number [facility] [place] [place] [address] * (ABNORMAL) eGFR (06/16/2025 11:29 AM ENGINE BOSS) Pathologist [facility] eGFR 36(L) >=60 mL/min/1. 73 m2 Comment: [...] reviewed 2021. Blood 06/16/2025 11:2 9 AM ENGINE BOSS 06/16/2025 12:00 PM ENGINE BOSS Yossi Anderson MD LAB BLOOD ORDERABLES F inal Result Performing Organization Address City/[facility]/ZIP Co de Phone Number [facility] [place] [address] * [id number], Tumor Marker (06/16/2025 11:29 AM ENGINE BOSS) alpha Fetoprotein <2.0 <=8.3 ng/mL Comment: Interpretive [...] 2018;57:[id number] Katya House et al. Clin Chem 2014;[id number]. Current interpretive data was last revised 2022. Blood 06/16/2025 11:2 9 AM ENGINE BOSS 06/16/2025 12:00 PM ENGINE BOSS Yossi Anderson MD LAB BLOOD ORDERABLES F inal Result [facility] Department [place] [address] * (ABNORMAL) Protime-INR (06/16/2025 11:29 AM ENGINE BOSS) PT 14.7(H) 10.2 - 13.5 sec INR 1.31(H) 0.90 - 1.20 [facility] Comment: Interpretive data Oral anticoagulant therapeutic ranges: Venous thromboembolism prophylaxis or treatment: 2.0-3.0 CARDIOLOGY Standard range: 2.0-3.0 High-intensity range: 2.5-3.5 Refer to indication-specific guidelines for appropriate target ranges for prosthetic heart valve replacement. Current interpretive data was last revised on 2019. Blood 06/16/2025 11:2 9 AM ENGINE BOSS 06/16/2025 12:03 PM ENGINE BOSS Yossi Anderson MD LAB BLOOD ORDERABLES F inal Result Performing Organization Address City/[facility]/ZIP Co de Phone Number CHARIS[facility] Department [place] [address] * (ABNORMAL) CBC without differential (06/16/2025 11:29 AM ENGINE BOSS) Pathologist [facility] WBC 4.69 3.80 - 9.90 K/cumm Hgb 9.2(L) 11.9 - 15.5 g/dL [facility] Hct 28.7(L) 35.6 - 45.5 % [facility] Plt 81(L) 150 - 400 K/cumm [facility] MPV 11.9 9.1 - 12.3 fL [facility] RBC 3.27(L) 3.90 - 5.20 M/cumm [facility] MCV 87.8 81.3 - 96.4 fL [facility] MCH 28.1 27.1 - 33.3 pg [facility] MCHC 32.1(L) 32.3 - 35.7 g/dL [facility] RDW CV 15.2(H) 11.1 - 14.9 % [facility] RDW SD 48.3(H) 35.7 - 48.1 fL [facility] NRBC abs 0.00 0.00 - 0.01 K/cumm [facility] Blood 06/16/2025 11:2 9 AM ENGINE BOSS 06/16/2025 12:00 PM ENGINE BOSS Yossi Anderson MD LAB BLOOD ORDERABLES F inal Result Performing Organization Address [facility]/ZIP Co de Phone Number [facility] Department [place] [address] * (ABNORMAL) Comprehensive metabolic panel (06/16/2025 11:29 AM ENGINE BOSS) Sodium 136 135 - 145 mmol/L Potassium, pl 3.6 3.3 - 4.9 mmol/L [facility] Chloride 98 97 - 110 mmol/L [facility] CO2 28 22 - 32 mmol/L [facility] Anion gap 10 2 - 15 mmol/L [facility] BUN 27(H) 6 - 25 mg/dL [facility] Creatinine 1.60(H) 0.60 - 1.10 mg/dL [facility] Glucose 121 70 - 199 mg/dL [facility] Comment: Interpretive Data Fasting glucose >/= 126 [...] 2022. Calcium 9.0 8.5 - 10.3 mg/dL [facility] Bilirubin, total 2.1(H) 0.1 - 1.2 mg/dL [facility] Protein, pl 6.7 6.5 - 8.5 g/dL [facility] Albumin 3.4(L) 3.5 - 5.0 g/dL [facility] Alk phos 76 40 - 130 Units/L [facility] ALT 24 7 - 45 Units/L [facility] AST 36 10 - 45 Units/L [facility] Blood 06/16/2025 11:2 9 AM ENGINE BOSS 06/16/2025 12:00 PM ENGINE BOSS us Yossi Anderson MD LAB BLOOD ORDERABLES F inal Result [facility] Department [place] [address] * (ABNORMAL) eGFR (06/08/2025 4:14 PM CDT) [...] 4:14 PM CDT 06/08/2025 6:34 PM CDT Gladys De Jesus MD LAB BLOOD ORDERABLES Fi nal Result Performing Organization Address [facility] de Phone Number [facility] [address] [facility] Department of Laboratories [place] [id number] * (ABNORMAL) Protime-INR (06/08/2025 4:14 PM CDT) PT 15.60(H) 12.00 - 14.60 sec INR 1.23(H) 0.90 - 1.20 [facility] Comment: Interpretive data Oral anticoagulant therapeutic ranges: Venous thromboembolism prophylaxis or treatment: 2.0-3.0 CARDIOLOGY Standard range: 2.0-3.0 High-intensity range: 2.5-3.5 Refer to indication-specific guidelines for appropriate target ranges for prosthetic heart valve replacement. Current interpretive data was last revised on 2019. Blood 06/08/2025 4:14 PM CDT 06/08/2025 6:34 PM CDT Gladys De Jesus MD LAB BLOOD ORDERABLES Fi nal Result Performing Organization Address City/[facility] Co de Phone Number CHARISSA [address] [place] [address] Department [place] [address] * (ABNORMAL) Comprehensive metabolic panel (06/08/2025 4:14 PM CDT) Sodium 134(L) 135 - 145 mmol/L Potassium, pl 3.4 3.3 - 4.9 mmol/L [facility] Chloride 94(L) 97 - 110 mmol/L [facility] CO2 28 22 - 32 mmol/L [facility] Anion gap 12 2 - 15 mmol/L [facility] BUN 43(H) 6 - 25 mg/dL [facility] Creatinine 2.10(H) 0.60 - 1.10 mg/dL [facility] Glucose 124 70 - 199 mg/dL [facility] Comment: Interpretive Data Fasting glucose [...] 2022. Calcium 9.8 8.5 - 10.3 mg/dL [facility] Bilirubin, total 1.9(H) 0.1 - 1.2 mg/dL [facility] Protein, pl 6.4(L) 6.5 - 8.5 g/dL [facility] Albumin 3.4(L) 3.5 - 5.0 g/dL [facility] Alk phos 81 40 - 130 Units/L [facility] ALT 24 7 - 45 Units/L [facility] AST 39 10 - 45 Units/L [facility] Blood 06/08/2025 4:14 PM CDT 06/08/2025 6:34 PM CDT Gladys De Jesus MD LAB BLOOD ORDERABLES Fi nal Result Performing Organization Address [facility] Co de Phone Number CHARISSA [address] [place] [address] * TRANSTHORACIC ECHO (TTE) COMPLETE W DOPPLER/CF W CONTRAST W BUBBLE (05/28/2025 4:06 PM CDT) Estimated EF 65-70 % CONS SCIMAGE EF Mod BP 75 % CONS SCIMAGE Anatomical Region Laterality Modality Ultrasound 05/28/2025 2:42 PM CDT Narrative 05/28/2025 4:55 PM CDT [facility] [place] [address] Transthoracic Echocardiographic Report Patient Name: NAEL CARDOZA J : 1960 (64y 5m) Sex: F Study Date: 05/28/2025 02:42:22 PM Ht(Inch): 67 Wt(Lb): 261.02 BSA: 2.26 [employer]: Ramya Whyte RDCS Location: [facility] Order Provider: DAKSHA FULLER Heart Rate: 71 [...] NS Bubble Study. INDICATIONS: K75.81 Nonalcoholic steatohepatitis (VELASCO) and K74.69 Other cirrhosis of liver. CONCLUSIONS: [...] [ -25.0 - -18.0 ] MV Decel [place] 542 LA Length 4C 6.6 cm MV [...] Procedure Note Raya Chand MD - 05/28/2025 [facility] [place] [address] Transthoracic Echocardiographic Report Patient Name: NAEL CARDOZA J : 1960 (64y 5m) Sex: F Study Date: 05/28/2025 02:42:22 PM Ht(Inch): 67 Wt(Lb): 261.02 BSA: 2.26 [employer]: Ramya Whyte RDCS Location: [facility] Order Provider:DAKSHA FULLER Heart Rate: 71 BMI: [...] NS Bubble Study. INDICATIONS: K75.81 Nonalcoholic steatohepatitis (VELASCO) and K74.69 Other cirrhosis ofliver. CONCLUSIONS: 1. [...] [ -25.0 - -18.0 ] MV Decel [place]679 LA Length 4C 6.6 cm MV Decel Ortz512 msec [ 104 - 258 ] LA [...] cm2 [ 3 - 11 ] RA Incpxehb95 mmHg RV FAC 51 % [ 35 [...] Raya Chand MD 05/28/2025 4:53:55 PM CDT Daksha Fuller MD CV ECHO PROCEDURES Ju l Result * (ABNORMAL) POCT hemoglobin A1c (05/28/2025 12:32 PM CDT) [facility] Hemoglobin A1C, POC 5.9(A) 4.0 - 5.6 % Blood 05/28/2025 12:3 2 PM CDT us Marina Kennedy MD PhD POINT OF CARE TEST ORDERA BLES Final Result * POCT glucose (05/28/2025 12:32 PM CDT) [facility] Glucose Blood, POC 202 Normal Fasting 70 - 100, Random <200 mg/dL Blood 05/28/2025 12:3 2 PM CDT us Marina Kennedy MD PhD [...] MD LAB BLOOD ORDERABLES Fi nal Result [facility] [place] [address] * (ABNORMAL) Differential, auto (05/12/2025 10:46 AM CDT) Neutrophil abs 3.23 1.50 - 6.50 K/cumm Imm gran abs 0.02 0.00 - 0.10 K/cumm [facility] Lymphocyte abs 0.58(L) 0.80 - 3.30 K/cumm [facility] Monocyte abs 0.46 0.20 - 0.80 K/cumm [facility] Eosinophil abs 0.28 0.00 - 0.50 K/cumm [facility] Basophil abs 0.02 0.00 - 0.10 K/cumm [facility] Neutrophil pct 70.5 % [facility] Comment: Interpretive Data Percent cell count reference ranges are not reported, since discordance with absolute values may lead to misinterpretation of CBC data. Current Interpretive Data was last revised on 2017. Imm gran pct 0.4 % [facility] Comment: Interpretive Data Percent cell count reference ranges are not reported, since discordance with absolute values may lead to misinterpretation of CBC data. Current Interpretive Data was last revised on 2017. Lymphocyte pct 12.6 % [facility] Comment: Interpretive Data Percent cell count reference ranges are not reported, since discordance with absolute values may lead to misinterpretation of CBC data. Current Interpretive Data was last revised on 2017. Monocyte pct 10.0 % [facility] Comment: Interpretive Data Percent cell count reference ranges are not reported, since discordance with absolute values may lead to misinterpretation of CBC data. Current Interpretive Data was last revised on 2017. Eosinophil pct 6.1 % [facility] Comment: Interpretive Data Percent cell count reference ranges are not reported, since discordance with absolute values may lead to misinterpretation of CBC data. Current Interpretive Data was last revised on 2017. Basophil pct 0.4 % [facility] Comment: Interpretive Data Percent cell count reference ranges are not reported, since discordance with absolute values may lead to misinterpretation of CBC data. Current Interpretive Data was last revised on 2017. Blood 05/12/2025 10:4 6 AM CDT 05/12/2025 11:25 AM CDT us Daksha Fuller MD LAB BLOOD ORDERABLES Fi nal Result [facility] [place] [address] * (ABNORMAL) CBC with auto differential (05/12/2025 10:46 AM CDT) Pathologist [facility] WBC 4.59 3.80 - 9.90 K/cumm Hgb 10.6(L) 11.9 - 15.5 g/dL [facility] Hct 30.6(L) 35.6 - 45.5 % [facility] Plt 76(L) 150 - 400 K/cumm [facility] MPV 12.1 9.1 - 12.3 fL [facility] RBC 3.49(L) 3.90 - 5.20 M/cumm [facility] MCV 87.7 81.3 - 96.4 fL [facility] MCH 30.4 27.1 - 33.3 pg [facility] MCHC 34.6 32.3 - 35.7 g/dL [facility] RDW CV 14.2 11.1 - 14.9 % [facility] RDW SD 45.0 35.7 - 48.1 fL [facility] NRBC abs 0.00 0.00 - 0.01 K/cumm [facility] Blood 05/12/2025 10:4 6 AM CDT 05/12/2025 11:25 AM CDT Daksha Fuller MD LAB BLOOD ORDERABLES nal Result [facility] [place] [address] * [id number], Tumor Marker (05/12/2025 10:46 AM CDT) Pathologist [facility] alpha Fetoprotein <2.0 <=8.3 ng/mL Comment: [...] 2018;[id number] Katya Obregon. et al. Clin Chem [id number]. Current interpretive data was last revised 2022. Blood 05/12/2025 10:4 6 AM CDT 05/12/2025 11:25 AM CDT Daksha Fuller MD LAB BLOOD ORDERABLES Fi nal Result Performing Organization Address [facility] de Phone Number [facility] [place] [address] * (ABNORMAL) Protime-INR (05/12/2025 10:46 AM CDT) PT 13.9(H) 10.2 - 13.5 sec INR 1.24(H) 0.90 - 1.20 [facility] Comment: Interpretive data Oral anticoagulant therapeutic ranges: Venous thromboembolism prophylaxis or treatment: 2.0-3.0 CARDIOLOGY Standard range: 2.0-3.0 High-intensity range: 2.5-3.5 Refer to indication-specific guidelines for appropriate target ranges for prosthetic heart valve replacement. Current interpretive data was last revised on 2019. Blood 05/12/2025 10:4 6 AM CDT 05/12/2025 11:25 AM CDT Daksha Fuller MD LAB BLOOD ORDERABLES Fi nal Result Performing Organization Address [facility] de Phone Number [facility] [place] [address] * (ABNORMAL) Comprehensive metabolic panel (05/12/2025 10:46 AM CDT) Sodium 138 135 - 145 mmol/L Potassium, pl 3.7 3.3 - 4.9 mmol/L [facility] Chloride 97 97 - 110 mmol/L [facility] CO2 29 22 - 32 mmol/L [facility] Anion gap 12 2 - 15 mmol/L [facility] BUN 33(H) 6 - 25 mg/dL [facility] Creatinine 2.00(H) 0.60 - 1.10 mg/dL [facility] Glucose 163 70 - 199 mg/dL [facility] Comment: Interpretive Data Fasting glucose >/= 126 [...] 2022. Calcium 9.7 8.5 - 10.3 mg/dL [facility] Bilirubin, total 2.2(H) 0.1 - 1.2 mg/dL [facility] Protein, pl 6.6 6.5 - 8.5 g/dL [facility] Albumin 3.3(L) 3.5 - 5.0 g/dL [facility] Alk phos 91 40 - 130 Units/L [facility] ALT 30 7 - 45 Units/L [facility] AST 49(H) 10 - 45 Units/L [facility] Blood 05/12/2025 10:4 6 AM CDT 05/12/2025 11:25 AM CDT us Daksha Fuller MD LAB BLOOD ORDERABLES Fi nal Result [facility] [place] [address] * Pap and High Risk HPV and Genotyping (Cytology Component) (04/28/2024 10:41 AM CDT) Thin prep (Pap test) 04/28/2024 10:41 AM CDT 04/28/2024 1:00 PM CDT Narrative PATHOLOGY [facility] - 05/04/2024 4:21 PM CDT EPIC results best viewed via link to PDF [facility] [place] [address] Note to Patients: This report may contain [...] Gender: F : 1960 (Age: 63) Address: [address] [place] [address] Hospital #: [id number] Service: Medical Location: [place] [address] Patient Type: [facility] Inpatient Taken: 04/28/2024 Received: 04/28/2024 Accessioned: 04/28/2024 [...] this test have been verified by the [facility] Molecular Infectious Disease laboratory. Correlate with reported cytology results, as applicable. Interpretive data last revised 23 jhosie/05/04/2024 16:21 JEANNIE Worthington([facility]) Report Electronically Reviewed and Signed Out By JEANNIE Worthington([facility]) 05/04/2024 16:21:37 Cervicovaginal Cytology (Pap Test) Disclaimer: The Pap test is a screening test used to detect cervical cancer and its precursors; it is not a diagnostic procedure. False negative and false positive results do occur. Pap test results should be interpreted in the context of pertinent clinical information and biopsy results as indicated. [facility] Clinical Laboratory Improvement Amendments (CLIA) mandate that cytologic and histologic results be correlated for laboratory quality specialist & improvement standards. FOR ALL [...] determined by the Surgical Pathology Department at [facility] as part of an ongoing quality assurance lead program and in compliance with federally mandated [...] determined by the Surgical Pathology Department of [facility]. It has not been cleared or approved by the U. S. Food and Drug Administration. us Eladio Carey MD LAB CYTOLOGY ORDERABLES Final Result PATHOLOGY [facility] 3rd Floor [place], [place] [phone] * Screening Mammogram Bilateral W Pal (04/27/2024 1:55 PM CDT) Anatomical Region Laterality Modality Breast Bilateral Mammography Narrative 04/27/2024 1:52 PM CDT Mammogram Technique: Bilateral Digital Breast Tomosynthesis, Bilateral C-view 2D Screening mammogram. Views obtained: bilateral craniocaudal and bilateral mediolateral oblique. Computer Aided Detection was performed. Mammogram Findings: The present examination has been compared to prior imaging studies performed at [facility] on 05/15/2021 and 12/06/2021. There are [...] compared to prior imaging studies performed at [facility] on 05/15/2021 and 12/06/2021. There are [...] scope was passed under direct vision.The PCF [id number] endoscope was introducedthrough the anus and [...] medications. - Repeat colonoscopy in 10 years [facility]. - Return to referring physician in 10 years. Attending Participation: I personally performed the entire procedure. Electronically signed by Pat Robins MD Pat Robins M.D. 05/30/2022 10:31:01 AM . Number of Addenda: 0 Note Initiated On: 05/30/2022 9:28 AM Recognized by the [employer] for promoting quality in endoscopy us Pat Robins MD ENDOSCOPY PROCEDURES Ju l Result * Albumin Creatinine Ratio, Urine (03/01/2021 2:45 PM CDT) Albumin Ur <12.0 mg/L [facility] Comment: Interpretive Data No reference range established. Current interpretive data was last revised 2018. Creatinine Ur 59.5 mg/dL [facility] Comment: Interpretive Data No reference range established. Current interpretive data was last revised 2018. Albumin Creatinine Ratio, Ur <20 1 - 29 mg/g [facility] Urine 03/01/2021 2:45 PM CDT 03/01/2021 3:41 PM CDT us Oly Baker MD LAB URINE ORDER RAVEN Final Result [facility] [place] [address] from Last 3 Months or Most Recently Relevant to Health Maintenance Insurance [facility] EPO Member Subscriber Plan / Payer (Ef fective 2018-Present) Name:Nael Cardzoa Relation to Subscriber:Not on file Subscriber ID:Not on file Payer ID:[id number] (NAIC) Type: L[place]ESH Address: [facility] [address] [address] ANTH ACCESS BLUE ACCESS [facility] Member Subscriber Plan / Payer (Ef fective 2021-Present) Name:Nael Cardoza Relation to Subscriber:Self Name:Nael Cardoza Payer ID:[id number] (NAIC) Type: [employer] Address: [id number] [facility] UHC MEDICARE ADVANTAGE UHC MEDICARE ADVANTAGE TRANSPLANT [employer]UM MEDICARE RISK TRANSPLANT [employer] MEDICARE RISK Advance Directives For more information, please contact: [phone] * Full Code (Latest Code Status on [...] 8:02 PM 04/29/2024 8:05 PM Care Teams Chief Strategy Officer Relationship Specialty Start Date End Date Maddy Romano MD [address] [place], [place] [phone] (Work) PCP - General 09/28/16 Manas Ibarra MD [address] [place] [address] Referring Physician Thoracic Surgery 11/05/18 Zion Barton MD [address] [place] [address] Radiation Oncologist Radiation Oncology 05/05/19 Molina Charles MD [address] [facility] [address] [place] [address] Referring Physician Transplant Hepatology 12/15/20 Karuna Maria, OT Occupational Therapist Occupational Therapy 09/20/22 Renu Treviño NP [address] [facility] [address] [place] [address] Nurse Practitioner Radiation Oncology 11/08/22 Eladio Mcrae MD [address] [facility] [address] [place] [address] Referring Physician Obstetrics and Gynecology 11/15/22 Marcy Schroeder, RN [address] [place] [address] Consultant [employer]. Vice President [employer] (Ex ) 04/27/24 Chelsea Barker, weight clerkConsultant [employer]. Vice President [employer] (Ex ) 11/13/24
--- OUTSIDE RECORDS SUMMARY | 2025-08-02 15:47 | XMS_ITS | Encounter Summary ---
Author Organization [facility] Healthcare Address [address] [place] [address] Care Team Providers Care Philosophy Instructor Name Role Phone Maddy Romano MD Primary Care Provider + [phone] Astrid Haq NP Unavailable [phone] Manas Ibarra MD Unavailable Zion Barton MD Unavailable Molina Charles MD Unavailable [phone] Inés Lemus RN Unavailable [phone] Karuna Maria OT Unavailable Unavaila Renu Paul NP Unavailable [phone] Eladio Mcrae MD Unavailable [phone] Marcy Schroeder RN Unavailable [phone] Briana Poe RN Unavailable [phone] Marina Le RN Unavailable [phone] Chelsea Barker RN Unavailable Unavail able Marina Le RN Unavailable [phone] Reason for Visit * Reason Onset Date Comments Ready to schedule 04/25/2022 Encounter Details Date Type Department Care Team (Late st Contact Info) Description 04/25/2022 Telephone [facility] Specialty Services [address] [place] [phone] Miscellaneous, Not In File Ready to schedule [...] file Legal Sex Female 8:22 AM SUPERVISOR METER SHOP Gender Identity Female 11/15/2021 2:30 AM CDT [...] Suspected 09/24/2024 09/24/2024 09/24/2024 3:13 PM SUPERVISOR METER SHOP COVID: Suspected 06/28/2025 06/28/2025 06/29/2025 12:02 AM SUPERVISOR METER SHOP Ring Surveillance: C. auris Comment:[id number] 07/01/2025 07/01/2025 07/06/2025 9:[address] documented as of this encounter Care Teams Philosophy Instructor Relationship Specialty Start Date End Date Maddy Romano MD [address] [place] [address] PCP - General 09/28/16 Astrid Haq NP [address] [place], [place] [address] Nurse Practitioner Radiation Oncology 11/05/18 11/07/22 Manas Ibarra MD [address] [place], [place] [address] Referring Physician Thoracic Surgery 11/05/18 Zion Barton MD [address] [place], [place] [address] Radiation Oncologist Radiation Oncology 05/05/19 Molina Charles MD [address] [place] [address] [address] [place] [address] Referring Physician Transplant Hepatology 12/15/20 Inés Lemus, RN [address] [facility] [address] [place] [address] Telecommunications Line Installer 10/31/21 5 Karuna Maria, OT Occupational Therapist Occupational Therapy 09/20/22 Rneu Treviño NP [address] [facility] [address] [place] [address] Nurse Practitioner Radiation Oncology 11/08/22 Eladio Mcrae MD [address] [place] [address] Referring Physician Obstetrics and Gynecology 11/15/22 Marcy Schroeder, RN [address] [place] [address] Telecommunications Line Installer 04/27/24 Briana Poe RN [address] [address] SHOP Outpatient Director Of Officiating 04/30/24 05/28/24 Marina Le, RN [address] [address] SHOP Outpatient Director Of Officiating 10/05/24 10/26/24 Chelsea Barker, snow removal supervisorTelecommunications Line Installer 11/13/24 Marina Le, RN [address] [address] SH[facility] Outpatient Director Of Officiating 07/12/25 07/29/25 documented as of this encounter
--- OUTSIDE RECORDS SUMMARY | 2025-08-02 15:48 | XMS_ITS ---
Author Organization [facility] al Address [address] [place] [address] Care Team Providers Care Supervisor Fitting Name Role Phone Maddy Romano MD Primary Care Provider + [phone] Manas Ibarra MD Unavailable Zion Barton MD Unavailable [phone] Molina Charles MD Unavailable [phone] Karuna Maria OT Unavailable Unavaila Renu Paul NP Unavailable [phone] Eladio Mcrae MD Unavailable [phone] Marcy Schroeder RN Unavailable [phone] Chelsea Barker RN Unavailable Unavail able Transplant Episode Kidney Candidate [facility] ([place], [place]) [facility] Center waitlisted on 05/07/2024 Marked as Active on 07/01/2025 Reason[facility] CoordinatorMarcy Schroeder RN Email: N/A Scores Score Value Updated Exceptions/Reas ons CPRA Not available EPTS (Calc) 57 08/02/2025 [place] Organ Diagnosis Organ Primary Contributory Kidney Other, Specify - 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
--- OUTSIDE RECORDS SUMMARY | 2025-08-02 15:48 | XMS_ITS ---
Author Organization [facility] al Address [address] [place] [address] Care Team Providers Care Meat Grading Machine Operator Name Role Phone Maddy Romano MD Primary Care Provider + [phone] Manas Ibarra MD Unavailable Zion Barton MD Unavailable Molina Charles MD Unavailable [phone] Karuna Maria OT Unavailable Unavaila Renu Paul NP Unavailable +[phone] Eladio Mcrae MD Unavailable [phone] Marcy Schroeder RN Unavailable [phone] Chelsea Barker RN Unavailable Unavail able Transplant Episode Liver Candidate [facility] ([place], [place]) - [facility] Center waitlisted on 08/17/2022 Marked as Active on 07/01/2025 Reason: Listed in [facility] Liver CoordinatorChelsea Barker RN Phone: N/A Fax: N/A Email: N/A Scores Score Value Updated Expires Exceptions/Xiomara sons CPRA Not available UNOS MELD 24 07/09/2025 08/08/2025 MELD (Calc) 28 07/26/2025 [place] Organ Diagnosis Organ Primary Contributory Liver Cirrhosis: Metabolic Dysfunction -Associated Steatohepatitis (MAS) Care Team Name Role Phone Fax Email Chelsea Barker, TYRA Liver Coordinator N/A N/A N/A Charito Lambert RD Dietitian N/A N/A N/A ANNIE MikeW Dragger Out N/A N/A N/A Molina Charles MD Referring Physician [phone] N/A Cynthia Robert RN Secondary Coordinator [phone] N/A N/A Celsa Vargas Primary Electrical Intern N/A N/A N/A [place] Bear Travelers' Aid Worker [phone] N/A N/A Events Pre-Transplant Referred: 10/26/2021 Evaluation began: 11/02/2021 Committee: 08/07/2022 Center waitlisted: 08/17/2022
--- OUTSIDE RECORDS SUMMARY | 2025-08-02 15:48 | XMS_ITS | Encounter Summary ---
Author Organization [facility] Address [address] [place] [address] Phone Care Team Providers Care Rand Tacker Name Role Phone Maddy Romano MD Primary Care Provider [phone] Astrid Haq BALANCE WHEEL SCREW HOLE TAPPER Unavailable [phone] Manas Ibarra MD Unavailable Zion Barton MD Unavailable Molina Charles MD Unavailable [phone] Inés Lemus RN Unavailable [phone] Karuna Maria OT Unavailable Unavaila Renu Paul NP Unavailable [phone] Eladio Mcrae MD Unavailable [phone] Marcy Schroeder RN Unavailable [phone] Briana Poe RN Unavailable [phone] Marina Le RN Unavailable [phone] Chelsea Barker RN Unavailable Unavail able Marina Le RN Unavailable [phone] Encounter Details Date Type Department Care Team (Latest Contact Info) Description 08/18/2020 Orders Only [facility] Scanning, Provider Social History Tobacco Use Types Packs/Day Years Used Date Smoking Tobacco: Former Cigarettes Q uit: 2010 Smokeless Tobacco: Never Comments No Sex and Gender Information Value Date Recorded Sex Assigned at Not on file Legal Sex Female 8:22 AM DISTRICT PLANT SUPERINTENDENT Gender Identity Female 11/15/2021 2:30 AM CDT [...] COVID: Suspected 09/24/2024 09/24/2024 09/24/2024 3:13 PM DISTRICT PLANT SUPERINTENDENT COVID: Suspected 06/28/2025 06/28/2025 06/29/2025 12:02 AM DISTRICT PLANT SUPERINTENDENT Ring Surveillance: C. auris Comment:[id number] 07/01/2025 07/01/2025 07/06/2025 9:[address] documented as of this encounter Care Teams Rand Tacker Relationship Specialty Start Date End Date Maddy Romano MD [address] [place] [address] PCP - General 09/28/16 Astrid Haq NP [address] [place], [place] [address] Nurse Practitioner Radiation Oncology 11/05/18 11/07/22 Manas Ibarra MD [address] [place], [place] [address] Referring Physician Thoracic Surgery 11/05/18 Zion Barton MD [address] [place], [place] [address] Radiation Oncologist Radiation Oncology 05/05/19 Molina Charles MD [facility] [address] [place], [place] [address] Referring Physician Transplant Hepatology 12/15/20 Inés Lemus, TYRA [address] [facility] [address] [place] [address] Special Warfare Boat Operator 10/31/21 5 Karuna Maria, OT Occupational Therapist Occupational Therapy 09/20/22 Renu Treviño NP [address] [place] [address] Nurse Practitioner Radiation Oncology 11/08/22 Eladio Mcrae MD [address] [place] [address] Referring Physician Obstetrics and Gynecology 11/15/22 Marcy Schroeder, RN [address] [place] [address] Special Warfare Boat Operator 04/27/24 Briana Poe RN [address] [address] SHOP Outpatient Boom Man 04/30/24 05/28/24 Marina Le, RN [address] [address] [facility] Outpatient Boom Man 10/05/24 10/26/24 Chelsea Barker, adult basic studies teacherSpecial Warfare Boat Operator 11/13/24 Marina Le, RN [address] [address] [facility] Outpatient Boom Man 07/12/25 07/29/25 documented as of this encounter
--- OUTSIDE RECORDS SUMMARY | 2025-08-02 15:48 | XMS_ITS | Encounter Summary ---
Author Organization [facility] Address [address] [place] [address] Care Team Providers Care Bit Sharpener Operator Name Role Phone Unavailable Primary Care Provider Unavailabl e Reason for Visit * Reason Onset Date Comments TR on CKD 04/02/2024 Spoke w/Dr. Mueller Stroke/CVA 04/02/2024 Spoke w/Gladys @ Dr. Anthony's exchange Encounter Details Date Type Department Care Team (Late st Contact Info) Description 04/02/2024 Telephone [facility] [address] [place] [address] Marcos Newton MD [address] [place] [phone] TR on CKD (Spoke w/Dr. Mueller); [...]
== END 2025-08-02 13:56 | disposition home or self-care (01) ==
LOC: CHSLAB 13:57
PROVIDERS: PCP Internal Medicine; Visit Provider Internal Medicine Gastroenterology
DX: K75.81 Nonalcoholic steatohepatitis (NASH) (principal); K74.69 Other cirrhosis of liver
CPT/HCPCS: 36415; 80053; 85025; 85055; 85610